=== PATIENT | female | born 1955 | race Caucasian/White ===

== ENCOUNTER 2023-08-08 10:51 | Outpatient (OUT) | payer MEDICARE, SELFPAY ==
[2023-08-08 11:24] LABS: Basophils Absolute Auto 0.1 10^3/uL (0.0-0.1); Basophils Percent Auto 1.4 % (0.2-2.0); Eosinophils Absolute Auto 0.2 10^3/uL (0.0-0.7); Eosinophils Percent Auto 2.3 % (0.9-7.0); Hematocrit 38.6 % (36.0-48.0); Hemoglobin 11.5 g/dL (12.0-16.0); Immature Granulocytes Abs Auto 0.02 10^3/uL (0.00-0.03); Immature Granulocytes Pct Auto 0.3 % (0.0-0.5); Lymphocytes Absolute Auto 1.3 10^3/uL (1.2-3.8); Lymphocytes Percent Auto 16.8 % (20.5-60.0); Mean Corpuscular HGB Conc 29.8 g/dL (29.9-35.2); Mean Corpuscular Hemoglobin 25.1 pg (26.7-34.0); Mean Corpuscular Volume 84.1 fL (81.0-99.0); Mean Platelet Volume 9.2 fL (9.5-13.5); Monocytes Absolute Auto 0.6 10^3/uL (0.3-0.8); Monocytes Percent Auto 7.5 % (1.7-12.0); Neutrophils Absolute Auto 5.8 10^3/uL (1.4-6.5); Neutrophils Percent Auto 71.7 % (43.0-75.0); Platelet Count 371 10^3/uL (150-450); Red Blood Count 4.59 10^6/uL (4.20-5.40); Red Cell Distribution Width 17.2 % (11.0-15.0)
[2023-08-08 12:18] LABS: Alanine Aminotransferase 20 U/L (14-59); Albumin Level 3.5 g/dL (3.4-5.0); Alkaline Phosphatase 112 U/L (46-116); Anion Gap 10.2; Aspartate Amino Transferase 11 U/L (15-37); BUN Creatinine Ratio 20.3; Bilirubin Total 0.3 mg/dL (0.2-1.0); Calcium 9.2 mg/dL (8.5-10.1); Carbon Dioxide 30.8 mmol/L (21.0-32.0); Chloride 103 mmol/L (98-107); Chol HDL Ratio 4.8; Cholesterol 201 mg/dL (<=200); Estimated GFR (African America >60 (>=60); Estimated GFR (Non-African Ame >60 (>=60); Globulin 3.5 g/dL; Glucose 86 mg/dL (74-106); HDL Cholesterol 42 mg/dL (40-60); Percent Iron Saturation 9.6 %; Sodium 140 mmol/L (136-145); Triglycerides 165 mg/dL (<=150)
[2023-08-08 12:19] LABS: Estimated Average Glucose 114 mg/dL; Glycohemoglobin A1C 5.6 % (4.5-6.2)
[2023-08-09 05:07] LABS: Transferrin 256 mg/dL (192-364)
== END 2023-08-08 10:52 | disposition home or self-care (01) ==
PROVIDERS: PCP Internal Medicine; Visit Provider Internal Medicine
DX: I10 Essential (primary) hypertension (principal); E11.9 Type 2 diabetes mellitus without complications; E78.5 Hyperlipidemia, unspecified; F32.A Depression, unspecified; E61.1 Iron deficiency; E55.9 Vitamin D deficiency, unspecified
CPT/HCPCS: 36415; 80053; 80061; 82306; 82728; 83036; 83540; 83550; 84466; 85025

== ENCOUNTER 2023-12-12 08:41 | Outpatient (OUT) | payer MEDICARE, SELFPAY ==
--- NOTE | 2023-12-12 09:00 | RT_ITS ---
[facility] Test Date: 2023-12-12 Pat Name: JULIAN MONTAÑO Department: Room: - Gender: Female Assistant Athletic Trainer: Zaina Albarado RRT : 1955 Requested By: [id number] Order Number: [id number] Reading MD: [place] Interpretive Statements Pulmonary function testing was completed according to ATS criteria. Findings were not considered accurate and reproducible, as the patient was not able to perform the maneuvers up to ATS standards. Both pre- and post-bronchodilator values utilized for spirometry. Spirometry (based on pre-bronchodilator values): -FEV1/FVC: Reduced @38% -FEV1: Severely reduced @ 38% -FVC: Mildly reduced @ 75% -There is a positive bronchodilator response in FEV1 and FVC. Lung volumes by plethysmography: -RV: Increased @ 247% -TLC: Increased @ 150% Diffusion capacity: -DLCO: Moderate reduction @ 55% when corrected for Hb 10.4g/dL Flow-volume loop: -Severe obstructive pattern Impressions: Spirometry suggests severe obstruction with a positive bronchodilator response. An elevated RV and TLC suggest air trapping and hyperinflation respectively. There is a moderately reduced diffusion capacity. Overall study is compatible with obstructive lung disease. Study suggests COPD with a bronchodilator response or asthma-COPD overlap - unable to determine further as patient was unable to jonah ATS standards. Clinical correlation required. Electronically Signed On 12-21-2023 8:02:14 EST by Tru [place]
[2023-12-12 09:08] LABS: Hemoglobin 10.4 g/dL (12.0-16.0)
[2023-12-12] MEDS: ALBUTEROL SULFATE 2.5 MG/3 ML VIAL NEB IH (10:12)
== END 2023-12-12 08:42 | disposition home or self-care (01) ==
PROVIDERS: PCP Internal Medicine; Visit Provider Internal Medicine
DX: F17.210 Nicotine dependence, cigarettes, uncomplicated (principal); J45.40 Moderate persistent asthma, uncomplicated
CPT/HCPCS: 36415; 85018; 94060; 94726; 94729

== ENCOUNTER 2024-01-11 09:11 | Outpatient (OUT) | payer MEDICARE, SELFPAY ==
--- OUTSIDE RECORDS SUMMARY | 2024-01-11 09:25 | XMS_ITS | CCD ---
Author Name Unknown Address [address] [place] [address] Organization [facility] Care Team Providers Care President & [employer] Name Role Phone CHALO, DR GIANNA PACHECO Admitting Unavaila ble AMBURN, DR GIANNA PACHECO Primary Care Unavaila ble HOUSE, DR MCCULLOUGH Consulting Unavailable AMBURN, DR GIANNA PACHECO Attending Unavaila ble AMBURN, DR GIANNA PACHECO Primary Care Unavaila ble MISC, DR VALDES Consulting Unavailable MISC, DR VALDES Attending Unavailable MISC, DR VALDES Admitting Unavailable ZIEBER, DR PATRICK Mir Consulting Unavailable AMBURN, DR GIANNA PACHECO Primary Care Unavaila ble ABBAS, DR SEBASTIAN Attending Unavailable ABBAS, DR SEBASTIAN Admitting Unavailable ABBAS, DR SEBASTIAN Consulting Unavailable ZIEBER, DR PATRICK Mir Consulting Unavailable SHAIKH MONAHAN Primary Care Physician [phone] SHAIKH MONAHAN Attending Unavailable Windnagel, Zamzam Admitting Unavailable Windnagel, Zamzam Referring Unavailable Windnagel, Zamzam Attending Unavailable Windnagel, Zamzam Referring Unavailable Windnagel, Zamzam Attending Unavailable Windnagel, Zamzam Admitting Unavailable Problems Problem Classification Problem Date Documented Da te Episodic/Chronic Aortic; peripheral; and visceral artery aneurysms (4 sources) Aneurysm of other specified arteries; Translations: [ANEURYSM OTHER SPECIFIED ARTERIES] Onset: 04-08-2022 Chronic Chronic obstructive pulmonary disease and bronchiectasis (1 source) Chronic obstructive pulmonary disease, unspecified; Translations: [COPD UNSPECIFIED] Onset: 01-09-2023 Chronic Deficiency and other anemia (1 source) Anemia, unspecified; Translations: [ANEMIA UNSPECIFIED] Onset: 01-09-2023 Episodic Diabetes mellitus without complication (4 sources) Type 2 diabetes mellitus without complications; Translations: [TYPE 2 DM WITHOUT COMPLICATIONS] Onset: 01-05-2023 Chronic Other and unspecified benign neoplasm (4 sources) Benign neoplasm of cranial nerves; Translations: [BENIGN NEOPLASM OF CRANIAL NERVES] Onset: 04-26-2022 Chronic Other nervous system disorders (1 source) Ataxia, unspecified; Translations: [ATAXIA UNSPECIFIED] Onset: 01-09-2023 Episodic Other nutritional; endocrine; and metabolic disorders (1 source) Abnormal weight loss; Translations: [ABNORMAL WEIGHT LOSS] Onset: 01-09-2023 Episodic Results Test Name Value Interpretation Reference Range Facility Neurology Forms- [facility] Forms- Text [id number] #1.00TIFF Normal [facility] Consent for Treatmenton Consent for Treatment [id number] .00TIFF Normal [facility] Physician Orderon 12-05-2023 Physician Order [id number]#1 .00TIFF Normal [facility] MRI Brain w/ + w/o Contrasto n 12-02-2023 MRI Brain w/ + w/o Contrast Exam Date/Time: 11/30/2023 17:25 EST Reason for Exam: [id number] Report IMPRESSION: No acute intracranial process or suspicious enhancement. Nonspecific right mastoid effusion. EXAMINATION: MRI Brain w/ + w/o Contrast HISTORY: Loss of balance. TECHNIQUE: Routine brain MRI protocol without and with contrast including diffusion images. Including dedicated images according to IAC protocol. CONTRAST: 6 mL gadolinium (Vueway) COMPARISON: None. RESULT: Acute Change: There is no evidence of restricted diffusion to suggest an acute infarct. Hemorrhage: No evidence of prior parenchymal hemorrhage. Mass Lesion/ Mass Effect: No evidence of an intracranial mass or extra-axial fluid collection. There is no evidence of a mass in the region of either IAC or elsewhere in the posterior fossa. Postsurgical changes on the right from apparent mastoidectomy, correlate with prior surgical history. No abnormal enhancement is noted in the basilar cisterns, along the course of the 7/8 cranial nerve complexes, or in the region of the inner ear complexes. No abnormal parenchymal or leptomeningeal enhancement following gadolinium administration. Inner ear structures appear to be within normal limits on the high resolution 3D sequence. No significant mass effect. Chronic Change: Scattered patchy areas of increased T2 and FLAIR signal are present in the supratentorial white matter which is a nonspecific finding but likely represents mild chronic microvascular ischemia. Parenchyma: There is mild generalized parenchymal volume loss. Ventricles: Normal caliber and morphology. Skull Base: Hypothalamic and pituitary region are grossly normal. Craniocervical junction is normal. No significant marrow replacement process. Report Vasculature: Major intracranial arterial structures, and dural venous sinuses show typical flow void, suggesting patency. Other: Mild thickening in the paranasal sinuses. Fluid within the right mastoid air cells. The orbits are unremarkable. The extracranial soft tissues are unremarkable. Ordering Provider: Zamzam Wheeler FINAL REPORT Dictated: 12/02/2023 12:36 pm Lincoln Prater MD Signed (Electronic Signature): 12/02/2023 12:36 pm Signed by: Lincoln Prater MD Transcribed by: SANA Technologist: CORDELIA Technical Comments Vueway Contrast amount in ml's: 6 Normal [facility] MRI Spine Cervical w/o Contr bonnie 12-02-2023 MRI Spine Cervical w/o Contrast Exam Date/Time: 11/30/2023 17:25 EST Reason for Exam: G95.9 [id number] Report IMPRESSION: Degenerative changes cervical spine as discussed. EXAMINATION: MRI Spine Cervical w/o Contrast HISTORY: Loss of balance. No sensation in the legs and feet for 2 months. TECHNIQUE: Routine cervical spine MR protocol without gadolinium. COMPARISON: None. RESULT: Some limitations from motion. CERVICAL: Counting reference: Craniocervical junction. Anatomic Variants: None. Alignment: Exaggerated cervical lordosis. Craniocervical junction: Craniocervical junction is unremarkable. Cord: The cervical spinal cord is grossly within normal limits of signal intensity and morphology, within limits of motion. Bone marrow signal/fracture: No evidence for acute or chronic fracture. No destructive osseous process. Cervical soft tissues: The paraspinal soft tissues are unremarkable. C2-C3: Disc bulge without significant canal or foraminal narrowing. C3-C4: Disc bulge without significant canal or foraminal narrowing. C4-C5: Disc bulge. Endplate osteophytes. Facet/uncovertebral degenerative changes. Moderate canal narrowing with moderate bilateral foraminal narrowing. C5-C6: Disc bulge. Endplate osteophytes. Facet/uncovertebral degenerative changes. Moderate canal narrowing with mild to moderate bilateral foraminal narrowing. C6-C7: Disc bulge. Facet/uncovertebral degenerative changes. Mild bilateral foraminal narrowing without significant canal narrowing. Report C7-T1: Facet degenerative changes without significant canal or foraminal narrowing within limits of motion. Upper thoracic spine: Visualized upper thoracic canal and foramina without significant narrowing. Ordering Provider: Zamzam Wheeler FINAL REPORT Dictated: 12/02/2023 12:40 pm Lincoln Prater MD Signed (Electronic Signature): 12/02/2023 12:40 pm Signed by: Lincoln Prater MD Transcribed by: SANA Technologist: CORDELIA Technical Comments None Normal [facility] BUNon 11-30-2023 Urea nitrogen [Mass/Vol] 17 mg/dL Normal 5-21 [facility] Comment on above: Performed By: #### 1 [id number] #### [facility] Laboratory [address] [place] [address] Consent for Treatmenton 11-14 Consent for Treatment [id number] .00TIFF Normal [facility] Creatinineon 11-30-2023 Creatinine [Mass/Vol] 0.8 mg/dL Normal 0.5-1.3 [facility] Comment on above: Performed By: #### 1 [id number], [id number] #### [facility] [address] [place] [address] RAD - MRI Screening Formon 0 11-30-2023 RAD - MRI Screening Form [id number] .00TIFF Normal [facility] eGFRon 11-30-2023 eGFR 79 mL/min/1.73 m2 Normal >=59 [facility] Comment on above: Order Comment: Order added by Discern Expert. Performed By: #### 1 [id number], [id number], [id number] #### [facility] [address] [place] [address] Physician Orderon 10-28-2023 Physician Order [id number] .00TIFF Normal [facility] CBC AUTO DIFFon 01-05-2023 BASO # 0.1 103/ul Normal 0.0-0.1 [facility] Comment on above: Performed By: #### C BC #### [facility] [address] [address] [address] Stan Aceves Basophils/100 WBC (Bld) 0.7 % Normal 0.2-2.0 [facility] Comment on above: Performed By: #### C BC #### [facility] [address] [place] [address] Dr. Stan Aceves EO # 0.1 103/ul Normal 0.0-0.7 [facility] Comment on above: Performed By: #### C BC #### [facility] [address] [address] [address] Stan Aceves Eosinophils/100 WBC (Bld) 1.0 % Normal 0.9-7.0 [facility] Comment on above: Performed By: #### C BC #### [facility] [address] [place] [address] Dr. Stan Aceves Erythrocyte distribution width (RBC) [Ratio] 16.8 % Critically high 11.0-15.0 [facility] Comment on above: Performed By: #### C BC #### [facility] [address] [place] [address] Dr. Stan Aceves Hematocrit (Bld) [Volume fraction] 33.7 % Critically low 36.0-48.0 [facility] Comment on above: Performed By: #### C BC #### [facility] [address] [place] [address] Dr. Stan Aceves Hemoglobin (Bld) [Mass/Vol] 10.6 g/dL Critically low 12.0-16.0 [facility] Comment on above: Performed By: #### C BC #### [facility] [address] [address] [address] Stan Aceves IG # 0.03 10e3/ul Normal 0.00-0.03 [facility] Comment on above: Performed By: #### C BC #### [facility] [address] [place] [address] Dr. Stan Aceves IG % 0.3 % Normal 0.0-0.5 [facility] Comment on above: Performed By: #### C BC #### [facility] [address] [place] [address] Dr. Stan Aceves LYMPH # 0.9 103/ul Critically low 1.2-3.8 [facility] Comment on above: Performed By: #### C BC #### [facility] [address] [place] [address] Dr. Stan Aceves Lymphocytes/100 WBC (Bld) 9.9 % Critically low 20.5-60.0 [facility] Comment on above: Performed By: #### C BC #### [facility] [address] [place] [address] Dr. Stan Aceves MANUAL DIFF REQ NO Normal [facility] Comment on above: Performed By: #### C BC #### [facility] [address] [place] [address] Dr. Stan Aceves MCH (RBC) [Entitic mass] 25.7 pg Critically low 26.7-34.0 [facility] Comment on above: Performed By: #### C BC #### [facility] [address] [place] [address] Dr. Stan Aceves MCHC (RBC) [Mass/Vol] 31.5 g/dL Normal 29.9-35.2 [facility] Comment on above: Performed By: #### C BC #### [facility] [address] [place] [address] Dr. Stan Aceves MCV (RBC) [Entitic vol] 81.6 fL Normal 81.0-99.0 [facility] Comment on above: Performed By: #### C BC #### [facility] [address] [place], [place] [id number] Dr. Stan Aceves MONO # 0.7 103/ul Normal 0.3-0.8 [facility] Comment on above: Performed By: #### C BC #### [facility] [address] [place] [address] Dr. Stan Aceves Monocytes/100 WBC (Bld) 7.3 % Normal 1.7-12.0 [facility] Comment on above: Performed By: #### C BC #### [facility] [address] [place] [address] Dr. Stan Aceves NEUT # 7.4 103/ul Critically high 1.4-6.5 [facility] Comment on above: Performed By: #### C BC #### [facility] [address] [place] [address] Dr. Stan Aceves Neutrophils/100 WBC (Bld) 80.8 % Critically high 43.0-75.0 [facility] Comment on above: Performed By: #### C BC #### [facility] [address] [place] [address] Dr. Stan Aceves Platelet mean volume (Bld) [Entitic vol] 8.2 fL Critically low 9.5-13.5 [facility] Comment on above: Performed By: #### C BC #### [facility] [address] [place] [address] Dr. Stan Aceves PLT 396 103/ul Normal 150-450 [facility] Comment on above: Performed By: #### C BC #### [facility] [address] [place] [address] Dr. Stan Aceves RBC 4.13 106/ul Critically low 4.20-5.40 [facility] Comment on above: Performed By: #### C BC #### [facility] [address] [place] [address] Dr. Stan Aceves WBC 9.2 103/ul Normal 4.0-11.0 [facility] Comment on above: Performed By: #### C BC #### [facility] [address] [place] [address] Dr. Stan Aceves GLYCOHEMOGLOBIN A1Con 2022 ADA RECOMMENDATION SEE BELOW Normal [facility] Comment on above: Result Comment: ADA RECOMMENDED LIMIT 4.0 - 6.0 ADA THERAPEUTIC TARGET < 7.0 ACTION SUGGESTED > 7.0 Performed By: #### A 1C #### [facility] [address] [place] [address] Dr. Stan Aceves Glucose [Mass/Vol] 126 mg/dL Normal [facility] Comment on above: Performed By: #### A 1C #### [facility] [address] [place] [address] Dr. Stan Aceves HbA1c (Bld) [Mass fraction] 6.0 % Normal 4.5-6.2 [facility] Comment on above: Performed By: #### A 1C #### [facility] [address] [place] [address] Dr. Stan Aceves IRONon 01-05-2023 Iron [Mass/Vol] 36.0 ug/dL Critically low 50.0-170.0 [facility] Comment on above: Performed By: #### I KAM #### [facility] [address] [place] [address] Dr. Stan Aceves MICROALBUMIN, RAND URon 12-16 mALB <1.3 Normal <=30.0 [facility] Comment on above: Performed By: #### M ALBR #### [facility] [address] [place] [address] Dr. Stan Aceves PROF 14(COMP METB)on 023 Albumin [Mass/Vol] 3.5 g/dL Normal 3.4-5.0 [facility] Comment on above: Performed By: #### T 4, CMP, TSH #### [facility] [address] [place] [address] Dr. Stan Aceves Albumin/Globulin [Mass ratio] 1.0 {ratio} Normal [facility] Comment on above: Performed By: #### T 4, CMP, TSH #### [facility] [address] [place] [address] Dr. Stan Aceves ALP [Catalytic activity/Vol] 105 U/L Normal 46-116 [facility] Comment on above: Performed By: #### T 4, CMP, TSH #### [facility] [address] [address] [address] Stan Aceves ALT [Catalytic activity/Vol] 20 U/L Normal 14-59 [facility] Comment on above: Performed By: #### T 4, CMP, TSH #### [facility] [address] [address] [address] Stan Aceves Anion gap [Moles/Vol] 12.1 mmol/L Normal [facility] Comment on above: Performed By: #### T 4, CMP, TSH #### [facility] [address] [place] [address] Dr. Stan Aceves AST [Catalytic activity/Vol] 14 U/L Critically low 15-37 [facility] Comment on above: Performed By: #### T 4, CMP, TSH #### [facility] [address] [place] [address] Dr. Stan Aceves Bilirubin [Mass/Vol] 0.3 mg/dL Normal 0.2-1.0 [facility] Comment on above: Performed By: #### T 4, CMP, TSH #### [facility] [address] [place] [address] Dr. Stan Aceves Calcium [Mass/Vol] 9.1 mg/dL Normal 8.5-10.1 [facility] Comment on above: Performed By: #### T 4, CMP, TSH #### [facility] [address] [place] [address] Dr. Stan Aceves Chloride [Moles/Vol] 103 mmol/L Normal 98-107 [facility] Comment on above: Performed By: #### T 4, CMP, TSH #### [facility] [address] [place] [address] Dr. Stan Aceves CO2 [Moles/Vol] 26.8 mmol/L Normal 21.0-32.0 [facility] Comment on above: Performed By: #### T 4, CMP, TSH #### [facility] [address] [place] [address] Dr. Stan Aceves Creatinine [Mass/Vol] 0.84 mg/dL Normal 0.55-1.02 [facility] Comment on above: Performed By: #### T 4, CMP, TSH #### [facility] [address] [place] [address] Dr. Stan Aceves EGFR-AF GRENADIAN >60 Normal >=60 [facility] Comment on above: Performed By: #### T 4, CMP, TSH #### [facility] [address] [address] [address] Stan Aceves EGFR-NON AF GRENADIAN >60 Normal >=60 [facility] Comment on above: Performed By: #### T 4, CMP, TSH #### [facility] [address] [place] [address] Dr. Stan Aceves Globulin (S) [Mass/Vol] 3.6 g/dL Normal [facility] Comment on above: Performed By: #### T 4, CMP, TSH #### [facility] [address] [place] [address] Dr. Stan Aceves Glucose [Mass/Vol] 84 mg/dL Normal 74-106 [facility] Comment on above: Performed By: #### T 4, CMP, TSH #### [facility] [address] [place] [address] Dr. Stan Aceves Potassium [Moles/Vol] 3.9 mmol/L Normal 3.5-5.1 [facility] Comment on above: Performed By: #### T 4, CMP, TSH #### [facility] [address] [place] [address] Dr. Stan Aceves Protein [Mass/Vol] 7.1 g/dL Normal 6.4-8.2 [facility] Comment on above: Performed By: #### T 4, CMP, TSH #### [facility] [address] [place] [address] Dr. Stan Aceves Sodium [Moles/Vol] 138 mmol/L Normal 136-145 [facility] Comment on above: Performed By: #### T 4, CMP, TSH #### [facility] [address] [place] [address] Dr. Stan Aceves Urea nitrogen [Mass/Vol] 12.0 mg/dL Normal 7.0-18.0 [facility] Comment on above: Performed By: #### T 4, CMP, TSH #### [facility] [address] [address] [address] Stan Aceves Urea nitrogen/Creatinine [Mass ratio] 14.3 mg/mg Normal [facility] Comment on above: Performed By: #### T 4, CMP, TSH #### [facility] [address] [address] [address] Stan Aceves T4on 01-05-2023 T4 [Mass/Vol] 8.70 ug/dL Normal 4.80-13.90 [facility] Comment on above: Performed By: #### T 4, CMP, TSH #### [facility] [address] [place] [address] Dr. Stan Aceves TSHon 01-05-2023 TSH 2.209 uIU/mL Normal 0.358-3.740 [facility] Comment on above: Performed By: #### T 4, CMP, TSH #### [facility] [address] [place] [address] Dr. Stan Aceves MRI BRAIN WO W CONon 022 MRI BRAIN WO W CON EXAMINATION: MRI BRAIN WO W CON HISTORY: Benign neoplasm of cranial nerve ; follow-up right acoustic neuroma COMPARISON: No relevant comparison available. TECHNIQUE: A variety of imaging planes and parameters were utilized for visualization of suspected pathology. Images were performed without and with ml Dotarem contrast. FINDINGS: CEREBRUM: Stable appearance of several small areas of increased T2 signal within the periventricular and subcortical deep white matter. Mild atrophy. No edema, hemorrhage, mass, acute infarction, or inappropriate atrophy. CEREBELLUM: No edema, hemorrhage, mass, acute infarction, or inappropriate atrophy. BRAINSTEM: No edema, hemorrhage, mass, acute infarction, or inappropriate atrophy. CSF SPACES: Ventricles, cisterns, and sulci are appropriate for age. No hydrocephalus, subarachnoid hemorrhage, or mass. SKULL: No mass or other significant visible lesion. SINUSES: Fluid-filled right mastoid air cells, unchanged. Trace amount of paranasal chronic sinusitis. ORBITS: Limited views are unremarkable. OTHER: Stable small enhancing mass within the right internal auditory canal extending into the cerebellar pontine angle, approximately 15 x 6 x 5 mm. IMPRESSION: 1. Stable small enhancing mass within the right internal auditory canal consistent with an acoustic neuroma. 2. Stable right mastoiditis. 3. Stable areas of increased T2 signal within the deep white matter favoring chronic small vessel ischemic changes. Electronically authenticated by: PATRICK PIERRE Date: 2022-04-27 10:16 Normal [facility] CREATININEon 04-08-2022 Creatinine [Mass/Vol] 0.91 mg/dL Normal 0.55-1.02 [facility] Comment on above: Performed By: #### C ONIEL #### [facility] [address] [place] [address] Dr. Stan Aceves EGFR-AF GRENADIAN >60 Normal >=60 [facility] Comment on above: Performed By: #### C ONIEL #### [facility] [address] [address] [address] Stan Aceves EGFR-NON AF GRENADIAN >60 Normal >=60 [facility] Comment on above: Performed By: #### C ONIEL #### [facility] [address] [place] [address] Dr. Stan Aceves CTA ABD/PELVIS WO W CONon CTA ABD/PELVIS WO W CON EXAMINATION: CTA ABD/PELVIS WO W CON HISTORY: Aneurysm of splenic artery COMPARISON: CTA abdomen pelvis 01/26/2021 TECHNIQUE: Axial, Coronal, and Sagittal CT images without and with IV contrast. Multi-planar/3-D imaging to optimize visualization of vascular anatomy. Dose reduction techniques were achieved by using automated exposure control and/or adjustment of mA and/or kV according to patient size and/or use of iterative reconstruction technique. FINDINGS: AORTA/VASCULAR: No aneurysm or dissection. Moderate atherosclerotic disease of the distal aorta. CELIAC ARTERY: Marked narrowing at its origin. SPLENIC ARTERY: 2 adjacent rim calcified aneurysms versus bilobed aneurysm; overall combined measurements 23 x 12 x 12 mm. SMA: Normal mesenteric vessels. RENAL ARTERIES: Normal renal vessels. LUNG BASES: No visible pulmonary or pleural disease. LIVER: No enlargement, atrophy, abnormal density, or significant focal lesion. BILIARY: No visible dilatation or calcification. PANCREAS: No lesion, fluid collection, ductal dilatation, or atrophy. SPLEEN: No enlargement or focal lesion. ADRENALS: Mild adreniform hypertrophy bilaterally, stable. KIDNEYS: No mass, obstruction, or calcification. BOWEL/MESENTERY: No visible mass, obstruction, or bowel wall thickening. RETROPERITONEUM: No mass or adenopathy. LYMPH NODES: No adenopathy. URINARY BLADDER: No visible focal wall thickening, lesion, or calculus. PELVIC ORGANS: Hysterectomy. ABDOMINAL WALL: No mass or hernia. BONES: No bony lesion or fracture. Multilevel moderate-marked degenerative disc disease of lumbar spine. OTHER: Negative. IMPRESSION: 1. Stable rim calcified splenic artery aneurysm(s). 2. 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 3. Stable adreniform hypertrophy of adrenal glands. 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 In the last year visit she had small residual disease in the cerebellopontine angle of about 5 mm x 10 mm. She is here for follow-up. 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.3) Sensorineural hearing loss of both ears (389.18) (H90.3) Past Medical History History of diabetes mellitus (V12.29) (Z86.39) Surgical History History of Hysterotomy (Obstetrical) Family History Family history of Cancer Family history of Coronary Artery Disease (V17.49) Family history of Diabetes Mellitus (V18.0) Social History Tobacco Non-user Allergies No Known Drug Allergies Recorded By: Rachel Contreras; 10/10/2013 3:23:22 PM Current Meds Alendronate Sodium 70 MG Oral Tablet; TAKE 1 TABLET BY MOUTH EVERY week --take 30 MINUTES before BREAKFAST;Therapy: [id number] to Recorded Rx By: Zion; Dispense: 84 Days ; #:12; Refill: 0; ARIEL = N; Record; Last Updated By: Domenica Topete; 10/11/2017 1:16:16 PM Aller-Ease 180 MG Oral Tablet;Therapy: 16Sep2015 to Recorded Dispense: 0 Days ; #: Sufficient Tablet; Refill: 0; ARIEL = N; Record; Last Updated By: Beverley Covarrubias; 09/16/2015 1:32:00 PM Ammonium Lactate 12 % External Cream; APPLY TO THE AFFECTED AREA(S)topically TWICE DAILY;Therapy: 03Mar2017 to Recorded Rx By: Zion; Dispense: 30 Days ; #:140; Refill: 0; AREIL = N; Record; Last Updated By: Domenica Topete; 10/11/2017 1:16:16 PM Atorvastatin Calcium 40 MG Oral Tablet; TAKE 1 TABLET BY MOUTH DAILY ATBEDTIME;Therapy: 06Jan2017 to Recorded Rx By: Zion; Dispense: 30 Days ; #:30; Refill: 0; ARIEL = N; Record; Last Updated By: Domenica Topete; 10/11/2017 1:16:16 PM Famotidine 20 MG Oral Tablet; TAKE 1 TABLET AT BEDTIME and TAKE 1 TABLET ASNEEDED during the day;Therapy: [id number] to Recorded Rx By: Zion; Dispense: 30 Days ; #:60; Refill: 0; ARIEL = N; Record; Last Updated By: Domenica Topete; 10/11/2017 1:16:16 PM Fluticasone Propionate 50 MCG/ACT Nasal Suspension; INHALE 1 (ONE) SPRAY INEACH NOSTRIL EVERY DAY;Therapy: 17Nov2016 to Recorded Rx By: Chalo; Dispense: 30 Days ; #:16; Refill: 0; ARIEL = N; Record; Last Updated By: Domenica Topete; 10/11/2017 1:16:16 PM Lisinopril 20 MG Oral Tablet;Therapy: [id number] to Recorded Rx By: GIANNA ISABEL; Dispense: 30 Days ; #:30; Refill: 0; ARIEL = N; Record; Last Updated By: Beverley Covarrubias; 09/16/2015 1:29:38 PM Meloxicam 7.5 MG Oral Tablet;Therapy: 15Jun2014 to Recorded Rx By: GIANNA ISABEL; Dispense: 30 Days ; #:30; Refill: 0; ARIEL = N; Record; Last Updated By: Mc Winter; 08/20/2014 1:02:13 PM MetFORMIN HCl - 500 MG Oral Tablet;Therapy: 19Nov2014 to Recorded Rx By: GIANNA ISABEL; Dispense: 30 Days ; #:15; Refill: 0; ARIEL = N; Record; Last Updated By: Beverley Covarrubias; 09/16/2015 1:29:38 PM Omeprazole 20 MG Oral Capsule Delayed Release; TAKE 1 CAPSULE IN THEMORNING at least ONE-HALF hour before breakfast,;Therapy: 02Oct2016 to Recorded Rx By: Zion; Dispense: 30 Days ; #:30; Refill: 0; ARIEL = N; Record; Last Updated By: Domenica Topete; 10/11/2017 1:16:16 PM Os-Christian Calcium + D3 500-200 MG-UNIT Oral Tablet; TAKE 1 TABLET BY MOUTHEVERY DAY;Therapy: 03May2017 to Recorded Rx By: Chalo; Dispense: 30 Days ; #:30; Refill: 0; ARIEL = N; Record; Last Updated By: Domenica Topete; 10/11/2017 1:16:16 PM Oyster Shell Calcium/D 500-200 MG-UNIT Oral Tablet; TAKE 1 TABLET BY MOUTHTWICE DAILY;Therapy: 06Jan2017 to Recorded Rx By: Zion; Dispense: 30 Days ; #:60; Refill: 0; ARIEL = N; Record; Last Updated By: Domenica Topete; 10/11/2017 1:16:16 PM Pharmacist Choice Lancets;Therapy: 21Sep2013 to Recorded Dispense: 30 Days ; #:100; Refill: 0; ARIEL = N; Record; Last Updated By: Rachel Contreras; 10/10/2013 3:23:22 PM Polyethylene Glycol 3350 Oral Packet;Therapy: 16Sep2015 to Recorded Dispense: 0 Days ; #: Sufficient Packet; Refill: 0; ARIEL = N; Record; Last Updated By: Beverley Covarrubias; 09/16/2015 1:32:00 PM RaNITidine HCl - 150 MG Oral Tablet; TAKE 1 TABLET BY MOUTH TWICE DAILY, TAKE1 TABLET BY MOUTH AT BEDTIME;Therapy: 31Jan2017 to Recorded Rx By: Zion; Dispense: 30 Days ; #:60; Refill: 0; ARIEL = N; Record; Last Updated By: Domenica Topete; 10/11/2017 1:16:16 PM Simvastatin 20 MG Oral Tablet;Therapy: 15Jun2014 to Recorded Rx By: GIANNA ISABEL; Dispense: 30 Days ; #:30; Refill: 0; ARIEL = N; Record; Last Updated By: Mc Winter; 08/20/2014 1:02:13 PM True Metrix Meter w/Device Kit; use to test BLOOD SUGAR DAILY;Therapy: 17Dec2016 to Recorded Rx By: Chalo; Dispense: 1 Days ; #:1; Refill: 0; ARIEL = N; Record; Last Updated By: Domenica Topete; 10/11/2017 1:16:16 PM Ulti-Michael Automatic;Therapy: 06Aug2013 to Recorded Dispense: 30 Days ; #:1; Refill: 0; ARIEL = N; Record; Last Updated By: Rachel Contreras; 10/10/2013 3:23:22 PM Diagnoses/Problems Acoustic neuroma (225.1) (D33.3) Orders MRI IAC w/wo Contrast; Status:Hold For - Scheduling,Retrospect desmond By ProtocolAuthorization ; Requested for:15Sep2020; Perform:[facility]; Due:[id number]; Last Updated By:Carole Lanier; 09/26/2018 3:48:32 PM;Ordered; For:Acoustic neuroma; Ordered By:Shane Wilkerson;Radiologist to Determine Optimal Study : YWhat are the patient's signs and symptoms? : s/p CPA lesion resection Signatures Electronically signed by : Shane Wilkerson MD; Sep 26 2018 4:29PM EST (Author) Normal [facility] Encounters Encounter Date Encounter Type Care Provider Facility Start: 12-15-2023 End: 12-16-2023 ambulatory Zamzam [place] [place]: 12-15-2023 End: 12-15-2023 Patient encounter procedure Zamzam Wheeler [facility] Start: 11-30-2023 End: 12-01-2023 ambulatory Zamzam Wheeler [place] Start: 11-21-2023 End: 11-22-2023 ambulatory SHAIKH HERO Not Available Start: 10-28-2023 End: 11-10-2023 Pre-admission assessment Zamzam Wheeler [facility] Start: 01-05-2023 End: 01-06-[address] GIANNA ISABEL Facility:[facility] Start: 04-26-2022 End: 04-27-[address] GIANNA ISABEL Facility:[facility] Start: 04-08-2022 End: 04-09-[address] GIANNA ISABEL Facility: Payers Date Payer Category Payer Unknown [id number] 1955 Unknown [id number] 2.16.84 [id number] 1955 Unknown [id number] 2.16.84 [id number] 1955 Unknown [id number] 2.16.84 [id number] 1955 Unknown [id number] 2.16.84 [id number] 1955 Unknown [id number] 2.16.8 [id number] 1955 Unknown [id number] 2.16.8 [id number] Social History Date Type Detail Facility Tobacco smoking status No Smoking Status Entered [facility] Sex Assigned At Female [facility] Evaluation + Plan note Note Date & Type Note Facility Evaluation + Plan note No data available for this section [facility] Hospital Discharge instructions Note Date & Type Note Facility Hospital Discharge instructions No data available for this section [facility] Progress note Note Date & Type Note Facility Progress note No data available for this section [facility] Summary Purpose Family History No Family History Records FoundNo Family History Records Found No data available for this section No Family History Records Found No data available for this section No Family History Records Found Advance Directives No Advanced Directives Records FoundNo Advanced Directives Records FoundNo Advanced Directives Records FoundNo Advanced Directives Records Found Additional Source Comments INFORMATION SOURCE (unrecogn ized section and content) DATE CREATED AUTHOR 10/22/2018 [employer] DATE CREATED AUTHOR AUTHOR'S ORGANIZ ATION 01/09/2023 [facility] DATE CREATED AUTHOR AUTHOR'S ORGANIZ ATION 11/26/2023 [facility] EPIC DATE CREATED AUTHOR AUTHOR'S ORGANIZ ATION 12/17/2023 [facility] Patient Care team informatio n (unrecognized section and content) Personnel Name: SHAIKH MONAHAN MD Address: Address: [facility] [place] Terry [address] Personnel Name: SHAIKH MONAHAN MD Address: Address: [facility] [place] [address] FOR RECORDS PERTAINING TO PATIENTS WHO ARE OR HAVE BEEN ENROLLED IN A CHEMICAL DEPENDENCY/SUBSTANCEABUSE PROGRAM, SOME INFORMATION MAY BE OMITTED. This clinical summary was aggregated from multiple sources. Caution should be exercised in using it in the provision of clinical care. This summary normalizes information from multiple sources, and as a consequence, information in this document may materially change the coding, format and clinical context of patient data. In addition, data may be omitted in some cases. CLINICAL DECISIONS SHOULD BE BASED ON THE PRIMARY CLINICAL RECORDS. [facility] [employer] [facility]. provides no warranty or guarantee of the accuracy or completeness of information in this document.
[2024-01-11 09:50] LABS: Creatinine Urine Random <13.00 mg/dL (20.00-300.00); Microalbumin Urine Random <1.3 mg/dL (<=30.0)
[2024-01-11 11:06] LABS: Percent Iron Saturation 7.7 %
[2024-01-12 08:12] LABS: Transferrin 294 mg/dL (192-364)
== END 2024-01-11 09:12 | disposition home or self-care (01) ==
LOC: LAB 09:12
PROVIDERS: PCP Internal Medicine; Visit Provider Internal Medicine
DX: D50.0 Iron deficiency anemia secondary to blood loss (chronic) (principal); E11.9 Type 2 diabetes mellitus without complications
CPT/HCPCS: 36415; 82043; 82570; 82728; 83540; 83550; 84466

== ENCOUNTER 2024-01-16 08:16 | Outpatient (OUT) | payer MEDICARE, SELFPAY ==
--- OUTSIDE RECORDS SUMMARY | 2024-01-16 08:21 | XMS_ITS | CCD ---
Author Name Unknown Address [address] [place] [address] Organization [facility] Care Team Providers Care Retail Office Manager Name Role Phone CHALO, DR GIANNA PACHECO [...] DR SEBASTIAN Consulting Unavailable ZIEBER, DR PATRICK iMr Consulting Unavailable SHAIKH MONAHAN Primary Care Physician SHAIKH MONAHAN Attending Unavailable Windnagel, Zamzam Admitting [...] Facility Neurology Forms- [facility] Neu[facility] Forms- Text [id number] #1.00TIFF Normal [facility] Consent for Treatmenton Consent for Treatment [id number]#1 .00TIFF Normal [facility] Physician Orderon 12-05-2023 Physician Order [id number]#1 .00TIFF Normal [facility] MRI Brain w/ + w/o Contrasto n [...] Contrast amount in ml's: 6 Normal [facility] MRI Spine Cervical w/o Contr bonnie [...] SANA Technologist: CORDELIA Technical Comments None Normal [facility] BUNon 11-30-2023 Urea nitrogen [Mass/Vol] 17 mg/dL Normal 5-21 [facility] Comment on above: Performed By: #### 1 [id number], [id number], [id number] #### [facility] [address] [place] [address] Consent for Treatmenton 11-14 Consent for Treatment [id number]#1 .00TIFF Normal [facility] Creatinineon 11-30-2023 Creatinine [Mass/Vol] 0.8 mg/dL Normal 0.5-1.3 [facility] Comment on above: Performed By: #### 1 [id number], [id number], [id number] #### [facility] [address] [place] [address] RAD - MRI Screening Formon 0 11-30-2023 RAD - MRI Screening Form [id number]#1 .00TIFF Normal [facility] eGFRon 11-30-2023 eGFR 79 mL/min/1.73 m2 Normal >=59 [facility] Comment on above: Order Comment: Order added by Discern Expert. Performed By: #### 1 [id number], [id number], [id number] #### [facility] [address] [place] [address] Physician Orderon 10-28-2023 Physician Order [id number]#1 .00TIFF Normal [facility] CBC AUTO DIFFon 01-05-2023 BASO # 0.1 103/ul Normal 0.0-0.1 [facility] Comment on above: Performed By: #### C BC #### [facility] [address] [address] [address] Stan Aceves Basophils/100 WBC (Bld) 0.7 % Normal 0.2-2.0 [facility] Comment on above: Performed By: #### C BC #### [facility] [address] [place] [address] Dr. Stan Aceves EO # 0.1 103/ul Normal 0.0-0.7 [facility] Comment on above: Performed By: #### C BC #### [facility] [address] [address] [address] Stan Aceves Eosinophils/100 WBC (Bld) 1.0 % Normal 0.9-7.0 [facility] Comment on above: Performed By: #### C BC #### [facility] [address] [place] [address] Dr. Stan Aceves Erythrocyte distribution width (RBC) [Ratio] 16.8 % Critically high 11.0-15.0 [facility] Comment on above: Performed By: #### C BC #### [facility] [address] [place] [address] Dr. Stan Aceves Hematocrit (Bld) [Volume fraction] 33.7 % Critically low 36.0-48.0 [facility] Comment on above: Performed By: #### C BC #### [facility] [address] [place] [address] Dr. Stan Aceves Hemoglobin (Bld) [Mass/Vol] 10.6 g/dL Critically low 12.0-16.0 [facility] Comment on above: Performed By: #### C BC #### [facility] [address] [address] [address] Stan Aceves IG # 0.03 10e3/ul Normal 0.00-0.03 [facility] Comment on above: Performed By: #### C BC #### [facility] [address] [place] [address] Dr. Stan Aceves IG % 0.3 % Normal 0.0-0.5 [facility] Comment on above: Performed By: #### C BC #### [facility] [address] [place] [address] Dr. Stan Aceves LYMPH # 0.9 103/ul Critically low 1.2-3.8 [facility] Comment on above: Performed By: #### C BC #### [facility] [address] [place] [address] Dr. Stan Aceves Lymphocytes/100 WBC (Bld) 9.9 % Critically low 20.5-60.0 [facility] Comment on above: Performed By: #### C BC #### [facility] [address] [place] [address] Dr. Stan Aceves MANUAL DIFF REQ NO Normal [facility] Comment on above: Performed By: #### C BC #### [facility] [address] [place] [address] Dr. Stan Aceves MCH (RBC) [Entitic mass] 25.7 pg Critically low 26.7-34.0 [facility] Comment on above: Performed By: #### C BC #### [facility] [address] [place] [address] Dr. Stan Aceves MCHC (RBC) [Mass/Vol] 31.5 g/dL Normal 29.9-35.[address] [facility] Comment on above: Performed By: #### C BC #### [facility] [address] [place] [address] Dr. Stan Aceves MCV (RBC) [Entitic vol] 81.6 fL Normal 81.0-99.0 [facility] Comment on above: Performed By: #### C BC #### [facility] [address] [place], [place] [id number] Dr. Stan Aceves MONO # 0.7 103/ul Normal 0.3-0.[address] [facility] Comment on above: Performed By: #### C BC #### [facility] [address] [place] [address] Dr. Stan Aceves Monocytes/100 WBC (Bld) 7.3 % Normal 1.7-12.0 [facility] Comment on above: Performed By: #### C BC #### [facility] [address] [place] [address] Dr. Stan Aceves NEUT # 7.4 103/ul Critically high 1.4-6.5 [facility] Comment on above: Performed By: #### C BC #### [facility] [address] [place] [address] Dr. Stan Aceves Neutrophils/100 WBC (Bld) 80.8 % Critically high 43.0-75.0 [facility] Comment on above: Performed By: #### C BC #### [facility] [address] [place] [address] Dr. Stan Aceves Platelet mean volume (Bld) [Entitic vol] 8.2 fL Critically low 9.5-13.[address] [facility] Comment on above: Performed By: #### C BC #### [facility] [address] [place] [address] Dr. Stan Aceves PLT 396 103/ul Normal 150-[address] [facility] Comment on above: Performed By: #### C BC #### [facility] [address] [place] [address] Dr. Stan Aceves RBC 4.13 106/ul Critically low 4.20-5.40 [facility] Comment on above: Performed By: #### C BC #### [facility] [address] [place] [address] Dr. Stan Aceves WBC 9.2 103/ul Normal 4.0-11.[address] [facility] Comment on above: Performed By: #### C BC #### [facility] [address] [place] [address] Dr. Stan Aceves GLYCOHEMOGLOBIN A1Con 2022 ADA RECOMMENDATION SEE BELOW Normal [facility] Comment on above: Result Comment: ADA RECOMMENDED LIMIT 4.0 - 6.0 ADA THERAPEUTIC TARGET < 7.0 ACTION SUGGESTED > 7.0 Performed By: #### A 1C #### [facility] [address] [place] [address] Dr. Stan Aceves Glucose [Mass/Vol] 126 mg/dL Normal [facility] Comment on above: Performed By: #### A 1C #### [facility] [address] [place] [address] Dr. Stan Aceves HbA1c (Bld) [Mass fraction] 6.0 % Normal 4.5-6.2 [facility] Comment on above: Performed By: #### A 1C #### [facility] [address] [place] [address] Dr. Stan Aceves IRONon 01-05-2023 Iron [Mass/Vol] 36.0 ug/dL Critically low 50.0-170.0 [facility] Comment on above: Performed By: #### I KAM #### [facility] [address] [place] [address] Dr. Stan Aceves MICROALBUMIN, RAND URon 12-16 mALB <1.3 Normal <=30.0 [facility] Comment on above: Performed By: #### M ALBR #### [facility] [address] [place] [address] Dr. Stan Aceves PROF 14(COMP METB)on 023 Albumin [Mass/Vol] 3.5 g/dL Normal 3.4-5.0 [facility] Comment on above: Performed By: #### T 4, CMP, TSH #### [facility] [address] [place] [address] Dr. Stan Aceves Albumin/Globulin [Mass ratio] 1.0 {ratio} Normal [facility] Comment on above: Performed By: #### T 4, CMP, TSH #### [facility] [address] [place] [address] Dr. Stan Aceves ALP [Catalytic activity/Vol] 105 U/L Normal 46-116 [facility] Comment on above: Performed By: #### T 4, CMP, TSH #### [facility] [address] [address] [address] Stan Aceves ALT [Catalytic activity/Vol] 20 U/L Normal 14-59 [facility] Comment on above: Performed By: #### T 4, CMP, TSH #### [facility] [address] [address] [address] Stan Aceves Anion gap [Moles/Vol] 12.1 mmol/L Normal [facility] Comment on above: Performed By: #### T 4, CMP, TSH #### [facility] [address] [place] [address] Dr. Stan Aceves AST [Catalytic activity/Vol] 14 U/L Critically low 15-37 [facility] Comment on above: Performed By: #### T 4, CMP, TSH #### [facility] [address] [place] [address] Dr. Stan Aceves Bilirubin [Mass/Vol] 0.3 mg/dL Normal 0.2-1.0 [facility] Comment on above: Performed By: #### T 4, CMP, TSH #### [facility] [address] [place] [address] Dr. Stan Aceves Calcium [Mass/Vol] 9.1 mg/dL Normal 8.5-10.1 [facility] Comment on above: Performed By: #### T 4, CMP, TSH #### [facility] [address] [place] [address] Dr. Stan Aceves Chloride [Moles/Vol] 103 mmol/L Normal 98-[address] [facility] Comment on above: Performed By: #### T 4, CMP, TSH #### [facility] [address] [place] [address] Dr. Stan Aceves CO2 [Moles/Vol] 26.8 mmol/L Normal 21.0-32.0 [facility] Comment on above: Performed By: #### T 4, CMP, TSH #### [facility] [address] [place] [address] Dr. Stan Aceves Creatinine [Mass/Vol] 0.84 mg/dL Normal 0.55-1.[address] [facility] Comment on above: Performed By: #### T 4, CMP, TSH #### [facility] [address] [place] [address] Dr. Stan Aceves EGFR-AF GUAMANIAN >60 Normal >=60 [facility] Comment on above: Performed By: #### T 4, CMP, TSH #### [facility] [address] [address] [address] Stan Aceves EGFR-NON AF GUAMANIAN >60 Normal >=60 [facility] Comment on above: Performed By: #### T 4, CMP, TSH #### [facility] [address] [place] [address] Dr. Stan Aceves Globulin (S) [Mass/Vol] 3.6 g/dL Normal [facility] Comment on above: Performed By: #### T 4, CMP, TSH #### [facility] [address] [place] [address] Dr. Stan Aceves Glucose [Mass/Vol] 84 mg/dL Normal 74-106 [facility] Comment on above: Performed By: #### T 4, CMP, TSH #### [facility] [address] [place] [address] Dr. Stan Aceves Potassium [Moles/Vol] 3.9 mmol/L Normal 3.5-5.[address] [facility] Comment on above: Performed By: #### T 4, CMP, TSH #### [facility] [address] [place] [address] Dr. Stan Aecves Protein [Mass/Vol] 7.1 g/dL Normal 6.4-8.2 [facility] Comment on above: Performed By: #### T 4, CMP, TSH #### [facility] [address] [place] [address] Dr. Stan Aceves Sodium [Moles/Vol] 138 mmol/L Normal 136-145 [facility] Comment on above: Performed By: #### T 4, CMP, TSH #### [facility] [address] [place] [address] Dr. Stan Aceves Urea nitrogen [Mass/Vol] 12.0 mg/dL Normal 7.0-18.0 [facility] Comment on above: Performed By: #### T 4, CMP, TSH #### [facility] [address] [address] [address] Stan Aceves Urea nitrogen/Creatinine [Mass ratio] 14.3 mg/mg Normal [facility] Comment on above: Performed By: #### T 4, CMP, TSH #### [facility] [address] [address] [address] Stan Aceves T4on 01-05-2023 T4 [Mass/Vol] 8.70 ug/dL Normal 4.80-13.90 [facility] Comment on above: Performed By: #### T 4, CMP, TSH #### [facility] [address] [place] [address] Dr. Stan Aceves TSHon 01-05-2023 TSH 2.209 uIU/mL Normal 0.358-3.740 [facility] Comment on above: Performed By: #### T 4, CMP, TSH #### [facility] [address] [place] [address] Dr. Stan Aceves MRI BRAIN WO W [...] PATRICK PIERRE Date: 2022-04-27 10:16 Normal [facility] CREATININEon 04-08-2022 Creatinine [Mass/Vol] 0.91 mg/dL Normal 0.55-1.02 [facility] Comment on above: Performed By: #### C ONIEL #### [facility] [address] [place] [address] Dr. Stan Aceves EGFR-AF GUAMANIAN >60 Normal >=60 [facility] Comment on above: Performed By: #### C ONIEL #### [facility] [address] [address] [address] Stan Aceves EGFR-NON AF GUAMANIAN >60 Normal >=60 [facility] Comment on above: Performed By: #### C ONIEL #### [facility] [address] [place] [address] Dr. Stan Aceves CTA ABD/PELVIS WO W [...] by: PATRICK PIERRE Date: 2022-04-08 10:04 Normal [facility] Established Visit (Otolaryng ology)on 09-26-2018 Established Visit [...] EVERY week --take 30 MINUTES before BREAKFAST;Therapy: [id number] to Recorded Rx By: Zion; Dispense: 84 [...] Dispense: 30 Days ; #:140; Refill: 0; ARIEL = N; Record; Last [...] TAKE 1 TABLET ASNEEDED during the day;Therapy: [id number] to Recorded Rx By: Zion; Dispense: 30 [...] 1:16:16 PM Lisinopril 20 MG Oral Tablet;Therapy: [id number] to Recorded Rx By: GIANNA ISABEL; Dispense: [...] Scheduling,Retrospect desmond By ProtocolAuthorization ; Requested for:15Sep2020; Perform:[facility]; Due:[id number]; Last Updated By:Carole Lanier; 09/26/2018 3:48:32 PM;Ordered; For:Acoustic neuroma; Ordered By:Shane Wilkerson;Radiologist to Determine Optimal Study : YWhat are the patient's signs and symptoms? : s/p CPA lesion resection Signatures Electronically signed by : Shane Wilkerson MD; Sep 26 2018 4:29PM EST (Author) Normal [facility] Encounters Encounter Date Encounter Type Care Provider Facility Start: 12-15-2023 End: 12-16-2023 ambulatory Zamzam Rodriguezstanford Facility:[facility] Start: 12-15-2023 End: 12-15-2023 Patient encounter procedure Zamzam Wheeler [facility] Start: 11-30-2023 End: 12-01-2023 ambulatory Zamzam Wheeler Facility:[facility] Start: 11-21-2023 End: 11-22-2023 ambulatory SHAIKH HERO Not Available Start: 10-28-2023 End: 11-10-2023 Pre-admission assessment Zamzam Wheeler [facility] Start: 01-05-2023 End: 01-06-[address] GIANNA ISABEL Facility:[facility] Start: 04-26-2022 End: 04-27-[address] GIANNA ISABEL Facility:[facility] Start: 04-08-2022 End: 04-09-[address] GIANNA ISABEL Facility: Payers Date Payer Category Payer Unknown [id number] 1955 Unknown [id number] 2.16.84 [id number] 1955 Unknown [id number] 2.16.84 [id number] 1955 Unknown [id number] 2.16.84 [id number] 1955 Unknown [id number] 2.16.84 [id number] 1955 Unknown [id number] 2.16.8 [id number] 1955 Unknown [id number] 2.16.8 [id number] Social History Date Type Detail Facility Tobacco smoking status No Smoking Status Entered [facility] Sex Assigned At Female [facility] Evaluation + Plan note Note Date & Type Note Facility Evaluation + Plan note No data available for this section [facility] Hospital Discharge instructions Note Date & Type Note Facility Hospital Discharge instructions No data available for this section [facility] Progress note Note Date & Type Note Facility Progress note No data available for this section [facility] Summary Purpose Family History No Family [...] CREATED AUTHOR AUTHOR'S ORGANIZ ATION 01/09/2023 [facility] DATE CREATED AUTHOR AUTHOR'S ORGANIZ ATION 11/26/2023 [facility] EPIC DATE CREATED AUTHOR AUTHOR'S ORGANIZ ATION 12/17/2023 [facility] Patient Care team informatio n (unrecognized section and content) Personnel Name: SHAIKH MONAHAN MD Address: Address: [facility] [address] Personnel Name: SHAIKH MONAHAN MD Address: Address: [facility] [address] [place] [address] FOR RECORDS PERTAINING TO PATIENTS WHO [...] BE BASED ON THE PRIMARY CLINICAL RECORDS. [facility] [employer] provides no warranty or guarantee of the accuracy or completeness of information in this document.
--- NOTE | 2024-01-16 08:28 | MM_ITS ---
Patient Name: JULIAN MONTAÑO MR#: [id number] : 1955 Exam Date: 01/16/2024 Ordering Doctor: Shaikh Hector Sánchez . RADIOLOGY REPORT PROCEDURE: MM TOMOSYNTHESIS SCREENING BI COMPARISON: MG MAMM SCREEN [place] W CAD, 07/04/2020. MG MAMM SCREEN 3D [place] CAD, 08/11/2021. INDICATIONS: screening Calculator Name NCI Breast Cancer Risk Assessment Tool 5 Year Breast Cancer Risk 1.10% Lifetime Breast Cancer Risk 3.30% Personal Breast Cancer No Personal Ovarian Cancer No Treatments None Family Cancers Mother with uterine cancer at age ~55. LOCATION: [facility] BREAST COMPOSITION: Almost entirely fatty. FINDINGS: DIAGNOSTIC CATEGORY 1--NEGATIVE. NO CHANGE FROM COMPARISON ASSESSMENT. RIGHT BREAST: No significant suspicious finding. LEFT BREAST: No significant suspicious finding. RECOMMENDATIONS: ROUTINE MAMMOGRAM AND CLINICAL EVALUATION IN 12 MONTHS. PLEASE NOTE: A NORMAL MAMMOGRAM DOES NOT EXCLUDE THE POSSIBILITY OF BREAST CANCER. A CLINICALLY SUSPICIOUS PALPABLE LUMP SHOULD BE BIOPSIED. Dictated by: Felice Morgan MD on 01/16/2024 at 09:09 Approved by: Felice Morgan MD on 01/16/2024 at 09:10
== END 2024-01-16 08:17 | disposition home or self-care (01) ==
LOC: MAMMO 08:17
PROVIDERS: PCP Internal Medicine; Visit Provider Internal Medicine
DX: Z12.31 Encounter for screening mammogram for malignant neoplasm of breast (principal); Z80.8 Family history of malignant neoplasm of other organs or systems
CPT/HCPCS: 77063; 77067

== ENCOUNTER 2024-03-08 16:28 | Outpatient (OUT) | payer MEDICARE, MEDICAID, SELFPAY ==
[2024-03-08 16:53] LABS: Basophils Absolute Auto 0.1 10^3/uL (0.0-0.1); Basophils Percent Auto 0.8 % (0.2-2.0); Eosinophils Absolute Auto 0.1 10^3/uL (0.0-0.7); Eosinophils Percent Auto 1.7 % (0.9-7.0); Hematocrit 36.4 % (36.0-48.0); Hemoglobin 11.1 g/dL (12.0-16.0); Immature Granulocytes Abs Auto 0.01 10^3/uL (0.00-0.03); Immature Granulocytes Pct Auto 0.1 % (0.0-0.5); Lymphocytes Absolute Auto 1.3 10^3/uL (1.2-3.8); Lymphocytes Percent Auto 16.9 % (20.5-60.0); Mean Corpuscular HGB Conc 30.5 g/dL (29.9-35.2); Mean Corpuscular Hemoglobin 25.2 pg (26.7-34.0); Mean Corpuscular Volume 82.5 fL (81.0-99.0); Mean Platelet Volume 8.4 fL (9.5-13.5); Monocytes Absolute Auto 0.6 10^3/uL (0.3-0.8); Monocytes Percent Auto 7.9 % (1.7-12.0); Neutrophils Absolute Auto 5.6 10^3/uL (1.4-6.5); Neutrophils Percent Auto 72.6 % (43.0-75.0); Platelet Count 354 10^3/uL (150-450); Red Blood Count 4.41 10^6/uL (4.20-5.40); Red Cell Distribution Width 16.1 % (11.0-15.0); White Blood Count 7.7 10^3/uL (4.0-11.0)
[2024-03-08 17:00] LABS: Estimated Average Glucose 126 mg/dL
[2024-03-08 17:10] LABS: Anion Gap 12.7; BUN Creatinine Ratio 29.1; Calcium 9.5 mg/dL (8.5-10.1); Carbon Dioxide 29.7 mmol/L (21.0-32.0); Chloride 96 mmol/L (98-107); Estimated GFR (African America >60 (>=60); Estimated GFR (Non-African Ame >60 (>=60); Glucose 104 mg/dL (74-106); Potassium 4.4 mmol/L (3.5-5.1); Sodium 134 mmol/L (136-145)
== END 2024-03-08 16:29 | disposition home or self-care (01) ==
LOC: LAB 16:29
PROVIDERS: PCP Internal Medicine; Visit Provider Internal Medicine
DX: D50.0 Iron deficiency anemia secondary to blood loss (chronic) (principal); E11.9 Type 2 diabetes mellitus without complications; I10 Essential (primary) hypertension
CPT/HCPCS: 36415; 80048; 83036; 85025

== ENCOUNTER 2024-03-08 17:01 | Outpatient (RCR) | payer MEDICARE, SELFPAY | END 2024-03-09 12:04 | disposition home or self-care (01) | LOC: PT 17:01 | PROVIDERS: PCP Internal Medicine; Visit Provider Nurse Practitioner Adult Health | DX: D33.3 Benign neoplasm of cranial nerves (principal); R29.6 Repeated falls; G62.9 Polyneuropathy, unspecified | CPT/HCPCS: 97163 ==

== ENCOUNTER 2024-06-27 07:44 | Outpatient (OUT) | payer MEDICARE, MEDICAID, SELFPAY ==
--- OUTSIDE RECORDS SUMMARY | 2024-06-27 07:50 | XMS_ITS | CCD ---
Author Organization [facility] Care Team Providers Care Section Leader Name Role Phone CHALO, DR GINANA PACHECO Admitting Unavaila ble AMBURN, DR GIANNA [...] Consulting Unavailable SHAIKH MONAHAN Primary Care Physician Windnagel, Arielle Admitting Unavailable Windnagel, Arilele Referring Unavailable Windnagel, Arielle Attending Unavailable Windnagel, Arielle Referring Unavailable Windnagel, Arielle Attending Unavailable Windnagel, Arielle Admitting Unavailable SANJAYWSHAIKH FIELDS Attending Unavailable SHAIKH MONAHAN Attending Unavailable WINDNAGEL, ARIELLE C Attending Unavailable SHAIKH MONAHAN Attending Unavailable DANIEL GILLETTE Attending Unavailabl e Problems Problem Classification Problem Date Documented Da [...] Facility Neurology Forms- Texton Neurology Forms- Text [id number] #1.00TIFF Normal [facility] Consent for Treatmenton Consent for Treatment [id number]#1 .00TIFF Normal [facility] Physician Orderon 12-05-2023 Physician Order [id number]#1 .00TIFF Normal [facility] MRI Brain w/ + w/o Contrasto [...] extracranial soft tissues are unremarkable. Ordering Provider: Arielle Ham FINAL REPORT Dictated: 12/02/2023 12:36 pm Lincoln Prater MD Signed (Electronic Signature): 12/02/2023 12:36 pm Signed by: Lincoln Prater MD Transcribed by: SANA Technologist: CORDELIA Technical Comments [employer] Contrast amount in ml's: 6 Normal [facility] MRI Spine Cervical w/o Contr bonnie 12-02-2023 [...] and foramina without significant narrowing. Ordering Provider: Arielle Ham FINAL REPORT Dictated: 12/02/2023 12:40 pm Lincoln Prater MD Signed (Electronic Signature): 12/02/2023 12:40 pm Signed by: Lincoln Prater MD Transcribed by: SANA Technologist: CORDELIA Technical Comments None Normal [facility] BUNon 11-30-2023 Urea nitrogen [Mass/Vol] 17 mg/dL Normal 5-21 [facility] Comment on above: Performed By: #### 1 [id number], [id number], [id number] #### [facility] [address] [place] [address] Consent for Treatmenton 11-14 Consent for Treatment [id number]#1 .00TIFF Normal [facility] Creatinineon 11-30-2023 Creatinine [Mass/Vol] 0.8 mg/dL Normal 0.5-1.3 [facility] Comment on above: Performed By: #### 1 [id number], [id number], [id number] #### [facility] [address] [place] [address] RAD - MRI Screening Formon 0 11-30-2023 RAD - MRI Screening Form [id number]#1 .00TIFF Normal [facility] eGFRon 11-30-2023 eGFR 79 mL/min/1.73 m2 Normal >=59 [facility] Comment on above: Order Comment: Order added by Discern Expert. Performed By: #### 1 [id number], [id number], [id number] #### [facility] [address] [place] [place] [id number] Physician Orderon 10-28-2023 Physician Order [id number]#1 .00TIFF Normal [facility] CBC AUTO DIFFon 01-05-2023 BASO # 0.1 103/ul Normal 0.0-0.1 [facility] Comment on above: Performed By: #### C BC #### [facility] [address] [address] [address] Stan Aceves Basophils/100 WBC (Bld) 0.7 % Normal 0.2-2.0 [facility] Comment on above: Performed By: #### C BC #### [facility] [address] [place] [address] Dr. Stan Aceves EO # 0.1 103/ul Normal 0.0-0.7 [facility] Comment on above: Performed By: #### C BC #### [facility] [address] [place] [address] Dr. Stan Aceves Eosinophils/100 WBC (Bld) 1.0 % Normal 0.9-7.0 [facility] Comment on above: Performed By: #### C BC #### [facility] [address] [address] [address] Stan Aceves Erythrocyte distribution width (RBC) [Ratio] 16.8 % Critically high 11.0-15.0 [facility] Comment on above: Performed By: #### C BC #### [facility] [address] [place] [address] Dr. Stan Aceves Hematocrit (Bld) [Volume fraction] 33.7 % Critically low 36.0-48.0 [facility] Comment on above: Performed By: #### C BC #### [facility] [address] [place] [address] Dr. Stan Aceves Hemoglobin (Bld) [Mass/Vol] 10.6 g/dL Critically low 12.0-16.0 [facility] Comment on above: Performed By: #### C BC #### [facility] [address] [address] [address] Stan Aceves IG # 0.03 10e3/ul Normal 0.00-0.03 [facility] Comment on above: Performed By: #### C BC #### [facility] [address] [address] [address] Stan Aceves IG % 0.3 % Normal 0.0-0.5 [facility] Comment on above: Performed By: #### C BC #### [facility] [address] [address] [address] Stan Aceves LYMPH # 0.9 103/ul Critically low 1.2-3.8 [facility] Comment on above: Performed By: #### C BC #### [facility] [address] [place] [address] Dr. Stan Aceves Lymphocytes/100 WBC (Bld) 9.9 % Critically low 20.5-60.0 [facility] Comment on above: Performed By: #### C BC #### [facility] [address] [place] [address] Dr. Stan Aceves MANUAL DIFF REQ NO Normal [facility] Comment on above: Performed By: #### C BC #### [facility] [address] [place] [address] Dr. Stan Aceves MCH (RBC) [Entitic mass] 25.7 pg Critically low 26.7-34.0 [facility] Comment on above: Performed By: #### C BC #### [facility] [address] [place] [address] Dr. Stan Aceves MCHC (RBC) [Mass/Vol] 31.5 g/dL Normal 29.9-35.2 [facility] Comment on above: Performed By: #### C BC #### [facility] [address] [place] [address] Dr. Stan Aceves MCV (RBC) [Entitic vol] 81.6 fL Normal 81.0-99.0 [facility] Comment on above: Performed By: #### C BC #### [facility] [address] [address] [address] Stan Aceves MONO # 0.7 103/ul Normal 0.3-0.8 [facility] Comment on above: Performed By: #### C BC #### [facility] [address] [address] [address] Stan Aceves Monocytes/100 WBC (Bld) 7.3 % Normal 1.7-12.0 [facility] Comment on above: Performed By: #### C BC #### [facility] [address] [address] [address] Stan Aceves NEUT # 7.4 103/ul Critically high 1.4-6.5 [facility] Comment on above: Performed By: #### C BC #### [facility] [address] [place] [address] Dr. Stan Aceves Neutrophils/100 WBC (Bld) 80.8 % Critically high 43.0-75.0 [facility] Comment on above: Performed By: #### C BC #### [facility] [address] [address] [address] Stan Aceves Platelet mean volume (Bld) [Entitic vol] 8.2 fL Critically low 9.5-13.5 [facility] Comment on above: Performed By: #### C BC #### [facility] [address] [address] [address] Stan Aceves PLT 396 103/ul Normal 150-450 [facility] Comment on above: Performed By: #### C BC #### [facility] [address] [address] [address] Stan Aceves RBC 4.13 106/ul Critically low 4.20-5.40 [facility] Comment on above: Performed By: #### C BC #### [facility] [address] [address] [address] Stan Aceves WBC 9.2 103/ul Normal 4.0-11.0 [facility] Comment on above: Performed By: #### C BC #### [facility] [address] [place] [address] Dr. Stan Aceves GLYCOHEMOGLOBIN A1Con 2022 ADA RECOMMENDATION SEE BELOW Normal [facility] Comment on above: Result Comment: ADA RECOMMENDED LIMIT 4.0 - 6.0 ADA THERAPEUTIC TARGET < 7.0 ACTION SUGGESTED > 7.0 Performed By: #### A 1C #### [facility] [address] [place] [address] Dr. Stan Aceves Glucose [Mass/Vol] 126 mg/dL Normal [facility] Comment on above: Performed By: #### A 1C #### [facility] [address] [place] [address] Dr. Stan Aceves HbA1c (Bld) [Mass fraction] 6.0 % Normal 4.5-6.2 [facility] Comment on above: Performed By: #### A 1C #### [facility] [address] [place] [address] Dr. Stan Aceves IRONon 01-05-2023 Iron [Mass/Vol] 36.0 ug/dL Critically low 50.0-170.0 [facility] Comment on above: Performed By: #### I KAM #### [facility] [address] [place] [address] Dr. Stan Aceves MICROALBUMIN, RAND URon 12-16 mALB <1.3 Normal <=30.0 [facility] Comment on above: Performed By: #### M ALBR #### [facility] [address] [place] [address] Dr. Stan Aceves PROF 14(COMP METB)on 023 Albumin [Mass/Vol] 3.5 g/dL Normal 3.4-5.0 [facility] Comment on above: Performed By: #### T 4, CMP, TSH #### [facility] [address] [place] [address] Dr. Stan Aceves Albumin/Globulin [Mass ratio] 1.0 {ratio} Normal [facility] Comment on above: Performed By: #### T 4, CMP, TSH #### [facility] [address] [address] [address] Stan Aceves ALP [Catalytic activity/Vol] 105 U/L Normal 46-116 [facility] Comment on above: Performed By: #### T 4, CMP, TSH #### [facility] [address] [place] [address] Dr. Stan Aceves ALT [Catalytic activity/Vol] 20 U/L Normal 14-59 [facility] Comment on above: Performed By: #### T 4, CMP, TSH #### [facility] [address] [place] [address] Dr. Stan Aceves Anion gap [Moles/Vol] 12.1 mmol/L Normal [facility] Comment on above: Performed By: #### T 4, CMP, TSH #### [facility] [address] [place] [address] Dr. Stan Aceves AST [Catalytic activity/Vol] 14 U/L Critically low 15-37 [facility] Comment on above: Performed By: #### T 4, CMP, TSH #### [facility] [address] [place] [address] Dr. Stan Aceves Bilirubin [Mass/Vol] 0.3 mg/dL Normal 0.2-1.0 [facility] Comment on above: Performed By: #### T 4, CMP, TSH #### [facility] [address] [place] [address] Dr. Stan Aceves Calcium [Mass/Vol] 9.1 mg/dL Normal 8.5-10.1 [facility] Comment on above: Performed By: #### T 4, CMP, TSH #### [facility] [address] [place] [address] Dr. Stan Aceves Chloride [Moles/Vol] 103 mmol/L Normal 98-107 [facility] Comment on above: Performed By: #### T 4, CMP, TSH #### [facility] [address] [place] [address] Dr. Stan Aceves CO2 [Moles/Vol] 26.8 mmol/L Normal 21.0-32.0 [facility] Comment on above: Performed By: #### T 4, CMP, TSH #### [facility] [address] [address] [address] Stan Aceves Creatinine [Mass/Vol] 0.84 mg/dL Normal 0.55-1.02 [facility] Comment on above: Performed By: #### T 4, CMP, TSH #### [facility] [address] [address] [address] Stan Aceves EGFR-AF YEMENI >60 Normal >=60 [facility] Comment on above: Performed By: #### T 4, CMP, TSH #### [facility] [address] [address] [address] Stan Aceves EGFR-NON AF YEMENI >60 Normal >=60 [facility] Comment on above: Performed By: #### T 4, CMP, TSH #### [facility] [address] [address] [address] Stan Aceves Globulin (S) [Mass/Vol] 3.6 g/dL Normal [facility] Comment on above: Performed By: #### T 4, CMP, TSH #### [facility] [address] [address] [address] Stan Aceves Glucose [Mass/Vol] 84 mg/dL Normal 74-106 [facility] Comment on above: Performed By: #### T 4, CMP, TSH #### [facility] [address] [address] [address] Stan Aceves Potassium [Moles/Vol] 3.9 mmol/L Normal 3.5-5.1 [facility] Comment on above: Performed By: #### T 4, CMP, TSH #### [facility] [address] [address] [address] Stan Aceves Protein [Mass/Vol] 7.1 g/dL Normal 6.4-8.2 [facility] Comment on above: Performed By: #### T 4, CMP, TSH #### [facility] [address] [address] [address] Stan Aceves Sodium [Moles/Vol] 138 mmol/L Normal 136-145 [facility] Comment on above: Performed By: #### T 4, CMP, TSH #### [facility] [address] [address] [address] Stan Aceves Urea nitrogen [Mass/Vol] 12.0 mg/dL Normal 7.0-18.0 [facility] Comment on above: Performed By: #### T 4, CMP, TSH #### [facility] [address] [place] [address] Dr. Stan Aceves Urea nitrogen/Creatinine [Mass ratio] 14.3 mg/mg Normal [facility] Comment on above: Performed By: #### T 4, CMP, TSH #### [facility] [address] [place] [address] Dr. Stan Aceves T4on 01-05-2023 T4 [Mass/Vol] 8.70 ug/dL Normal 4.80-13.90 [facility] Comment on above: Performed By: #### T 4, CMP, TSH #### [facility] [address] [place] [address] Dr. Stan Aceves TSHon 01-05-2023 TSH 2.209 uIU/mL Normal 0.358-3.740 [facility] Comment on above: Performed By: #### T 4, CMP, TSH #### [facility] [address] [place] [address] Dr. Stan Aceves MRI BRAIN WO W CONon 14-2 022 MRI BRAIN WO W CON EXAMINATION: [...] by: PATRICK PIERRE Date: 2022-04-27 10:16 Normal [facility] CREATININEon 04-08-2022 Creatinine [Mass/Vol] 0.91 mg/dL Normal 0.55-1.02 [facility] Comment on above: Performed By: #### C ONIEL #### [facility] [address] [place] [address] Dr. Stan Aceves EGFR-AF YEMENI >60 Normal >=60 [facility] Comment on above: Performed By: #### C ONIEL #### [facility] [address] [address] [address] Stan Aceves EGFR-NON AF YEMENI >60 Normal >=60 [facility] Comment on above: Performed By: #### C ONIEL #### [facility] [address] [place] [address] Dr. Stan Aceves CTA ABD/PELVIS WO W [...] by: PATRICK PIERRE Date: 2022-04-08 10:04 Normal [facility] Established Visit (Otolaryng ology)on 09-26-2018 Established [...] EVERY week --take 30 MINUTES before BREAKFAST;Therapy: 30Jul2016 to Recorded Rx By: Zion; Dispense: 84 [...] TAKE 1 TABLET ASNEEDED during the day;Therapy: [id number] to Recorded Rx By: Zion; Dispense: 30 [...] 1:16:16 PM Lisinopril 20 MG Oral Tablet;Therapy: [id number] to Recorded Rx By: GIANNA ISABEL; Dispense: [...] 1:16:16 PM Simvastatin 20 MG Oral Tablet;Therapy: [id number] to Recorded Rx By: GIANNA ISABEL; Dispense: 30 Days ; #:30; Refill: 0; ARIEL = N; Record; Last Updated By: Mc Winter; 08/20/2014 1:02:13 PM True Metrix Meter w/Device Kit; use to test BLOOD SUGAR DAILY;Therapy: [id number] to Recorded Rx By: Chalo; Dispense: 1 Days ; #:1; Refill: 0; ARIEL = N; Record; Last Updated By: Domenica Topete; 10/11/2017 1:16:16 PM Ulti-Michael Automatic;Therapy: [id number] to Recorded Dispense: 30 Days ; #:1; Refill: 0; ARIEL = N; Record; Last Updated By: Rachel Contreras; 10/10/2013 3:23:22 PM Diagnoses/Problems Acoustic neuroma (225.1) (D33.3) Orders MRI IAC w/wo Contrast; Status:Hold For - Scheduling,Retrospect desmond By ProtocolAuthorization ; Requested for:[id number]; Perform:[facility]; Due:[id number]; Last Updated By:Carole Lanier; 09/26/2018 3:48:32 PM;Ordered; For:Acoustic neuroma; Ordered By:Shane Wilkerson;Radiologist to Determine Optimal Study : YWhat are the patient's signs and symptoms? : s/p CPA lesion resection Signatures Electronically signed by : Shane Wilkerson MD; Sep 26 2018 4:29PM EST (Author) [facility] Encounters Encounter Date Encounter Type Care Provider Facility Start: 06-21-2024 End: 06-21-2024 ambulatory DANIEL GILLETTE Not Available Start: 03-08-2024 End: 03-08-2024 ambulatory SHAIKH HERO Not Available Start: 03-01-2024 End: 03-01-2024 ambulatory ARIELLE HAM Not Available Start: 01-26-2024 End: 01-26-2024 ambulatory SHAIKH HERO Not Available Start: 12-15-2023 End: 12-16-2023 ambulatory Arielle Ham Facility:[facility] Start: 12-15-2023 End: 12-15-2023 Patient encounter procedure Arielle Ham [facility] Start: 11-30-2023 End: 12-01-2023 ambulatory Arielle Ham Facility:[facility] Start: 11-21-2023 End: 11-21-2023 ambulatory SHAIKH HERO Not Available Start: 10-28-2023 End: 11-10-2023 Pre-admission assessment Arielle Ham [facility] Start: 01-05-2023 End: 01-06-[address] GIANNA ISABEL Facility: Start: 04-26-2022 End: 04-27-[address] GIANNA ISABEL Facility:[facility] Start: 04-08-2022 End: 04-09-[address] GIANNA ISABEL Facility: Payers Date Payer Category Payer Medicare [id number] 1961 Unknown [id number] 1955 Unknown [id number] 2.16.84 [id number] 1955 Unknown [id number] .16.84 [id number] 1955 Unknown [id number] .16.84 0.1.233059.3.579.2.59 1955 Unknown [id number] 2.16.8 [id number] 1955 Unknown [id number] 2.16.8 [id number] 1955 Unknown [id number] 2.16.84 0.1.872414.3.579.2.1259 1955 Unknown [id number] 2.16.84 0.1.451232.3.579.2.1259 1955 Unknown [id number] 2.16.84 0.1.761697.3.579.2.1259 1955 Unknown [id number] 2.16.84 0.1.790086.3.579.2.9 1955 Unknown [id number] 2.16.84 [id number] Social History Date Type Detail Facility Tobacco smoking status No Smoking Status Entered [facility] Sex Assigned At Female [facility] Evaluation + Plan note Note Date & Type Note Facility Evaluation + Plan note No data available for this section [facility] Hospital Discharge instructions Note Date & Type Note Facility Hospital Discharge instructions No data available for this section [facility] Progress note Note Date & Type Note Facility Progress note No data available for this section [facility] Summary Purpose Family History No Family History Records FoundNo Family History Records Found No data available for this section No data available for this section No Family History Records FoundNo Family History Records Found Advance Directives No Advanced Directives Records FoundNo Advanced Directives Records FoundNo Advanced Directives Records FoundNo Advanced Directives Records Found Additional Source Comments INFORMATION SOURCE (unrecogn ized section and content) DATE CREATED AUTHOR 10/22/2018 [facility] DATE CREATED AUTHOR AUTHOR'S ORGANIZ ATION 01/09/2023 [facility] DATE CREATED AUTHOR AUTHOR'S ORGANIZ ATION 12/17/[address] [facility] DATE CREATED AUTHOR AUTHOR'S ORGANIZ ATION 06/23/2024 [facility] EPIC Patient Care team informatio n (unrecognized section and content) Personnel Name: SHAIKH MONAHAN MD Address: Address: [address] [place] [address] Personnel Name: SHAIKH MONAHAN MD Address: Address: [address] [place] [address] FOR RECORDS PERTAINING TO PATIENTS WHO ARE [...] BE BASED ON THE PRIMARY CLINICAL RECORDS. [facility]. provides no warranty or guarantee of the accuracy or completeness of information in this document.
[2024-06-27 08:34] LABS: Basophils Absolute Auto 0.1 10^3/uL (0.0-0.1); Basophils Percent Auto 1.2 % (0.2-2.0); Eosinophils Absolute Auto 0.2 10^3/uL (0.0-0.7); Eosinophils Percent Auto 2.5 % (0.9-7.0); Hematocrit 36.4 % (36.0-48.0); Hemoglobin 11.4 g/dL (12.0-16.0); Immature Granulocytes Abs Auto 0.04 10^3/uL (0.00-0.03); Immature Granulocytes Pct Auto 0.6 % (0.0-0.5); Lymphocytes Absolute Auto 1.2 10^3/uL (1.2-3.8); Lymphocytes Percent Auto 17.1 % (20.5-60.0); Mean Corpuscular HGB Conc 31.3 g/dL (29.9-35.2); Mean Corpuscular Hemoglobin 26.2 pg (26.7-34.0); Mean Corpuscular Volume 83.7 fL (81.0-99.0); Mean Platelet Volume 8.4 fL (9.5-13.5); Monocytes Absolute Auto 0.7 10^3/uL (0.3-0.8); Monocytes Percent Auto 9.9 % (1.7-12.0); Neutrophils Absolute Auto 4.8 10^3/uL (1.4-6.5); Neutrophils Percent Auto 68.7 % (43.0-75.0); Platelet Count 350 10^3/uL (150-450); Red Blood Count 4.35 10^6/uL (4.20-5.40); Red Cell Distribution Width 17.2 % (11.0-15.0); White Blood Count 6.9 10^3/uL (4.0-11.0)
[2024-06-27 09:58] LABS: Chol HDL Ratio 2.7; Cholesterol 133 mg/dL (<=200); HDL Cholesterol 50 mg/dL (40-60); Triglycerides 55 mg/dL (<=150)
[2024-06-27 10:03] LABS: Percent Iron Saturation 7.5 %
[2024-06-28 07:11] LABS: Transferrin 326 mg/dL (192-364)
== END 2024-06-27 07:45 | disposition home or self-care (01) ==
LOC: LAB 07:48
DX: E78.49 Other hyperlipidemia (principal); I10 Essential (primary) hypertension; D50.0 Iron deficiency anemia secondary to blood loss (chronic); E11.9 Type 2 diabetes mellitus without complications; E55.9 Vitamin D deficiency, unspecified
CPT/HCPCS: 36415; 80061; 82306; 82607; 82728; 83540; 83550; 84466; 85025

== ENCOUNTER 2024-12-09 15:55 | Emergency (ER) | payer MEDICARE, MEDICAID, SELFPAY ==
[2024-12-09] VITALS (32 sets, daily range): BP systolic 95–179; BP diastolic 53–100; PULSE 92–118; TEMP 37.4; O2SAT 89–100; BMI 25.8
--- NOTE | 2024-12-09 15:59 | CT_ITS ---
The [address] [address] Patient Name: JULIAN MONTAÑO MRN: [id number] date: 1955 Sex: F Assigned Patient Location: ER Current Patient Location: ER Accession/Order Number: [id number] Exam Date: 12/09/2024 16:40 Report Date: 12/09/2024 17:07 At the request of: ALY SHRESTHA Procedure: CT head/brain wo con CT head/brain wo con, CT cervical spine wo con, 12/09/2024 4:40 PM EST INDICATION: trauma and fall COMPARISON: Prior MRI of the brain dated 04/26/2022 TECHNIQUE: Axial images of 3 mm are obtained from the base of the skull to vertex completed with Axial images of 2 mm are obtained from base of skull to T2 without contrast. Dose reduction techniques were achieved by using automated exposure control and/or adjustment of mA and/or kV according to patient size and/or use of iterative reconstruction technique. FINDINGS: There is status post right canal wall up mastoidectomy with stable air-fluid level posterior to the surgical bed. The cerebral and cerebellar sulci as well as ventricular system are appropriate for age. There is no intracranial mass, mass effect, midline shift, intra or extra-axial fluid collection. No acute territorial infarction or hemorrhage is noted. The visualized portions of orbits, mastoid air cells as well as paranasal sinuses are unremarkable. There is no suspicious osteolytic or osteoblastic lesion. No acute fracture or dislocation is noted. Multilevel degenerative changes of cervical spine are noted. There is diffuse demineralization of bone. Partially visualized endotracheal tube is noted. CT/CT head/brain wo con IMPRESSION: No acute intracranial process is identified. No acute fracture. Electronically authenticated by: TORRI LAND Date: 12/09/2024 17:07
--- NOTE | 2024-12-09 15:59 | XR_ITS ---
[address] [address] Patient Name: JULIAN MONTAÑO MRN: [id number] date: 1955 Sex: F Assigned Patient Location: ED.MAIN Current Patient Location: ER Accession/Order Number: [id number] Exam Date: 12/09/2024 16:55 Report Date: 12/09/2024 17:27 At the request of: ALY SHRESTHA Procedure: XR chest 1V EXAM: XR chest 1V TECHNIQUE: Single AP view chest HISTORY: post intubation COMPARISON: CT scan 03/22/2019 FINDINGS: The heart and mediastinum are unremarkable. Endotracheal tube is seen in proper position. Calcified granuloma of the mediastinum. No acute consolidation. Stable emphysematous changes. Osseous structures appear intact. XR/XR chest 1V IMPRESSION: No acute consolidation. Endotracheal tube in proper position. Electronically authenticated by: CLAUDIA DIAZ Date: 12/09/2024 17:27
--- NOTE | 2024-12-09 15:59 | ECG_ITS ---
The [facility] Test Date: 2024-12-09 Pat Name: JULIAN MONTAÑO Department: Room: - Gender: Female [employer]: : 1955 Requested By: [id number] Order Number: [id number] Reading MD: CHARLES CANALES Measurements Intervals [place] Rate: 116 P: 78 TN: 152 QRS: -34 QRSD: 126 T: 58 QT: 352 QTc: 421 Interpretive Statements 1120 Sinus tachycardia 2450 Right bundle branch block 7200 Abnormal left axis deviation 9150 abnormal ECG No previous ECG available for comparison Electronically Signed On 12-10-2024 6:51:02 EST by CHARLES CANALES
[2024-12-09] MEDS: IPRATROPIUM/ALBUTEROL SULFATE 3 ML AMPUL.NEB IH (16:00)
--- OUTSIDE RECORDS SUMMARY | 2024-12-09 16:02 | XMS_ITS | CCD ---
Author Organization [facility] Care Team Providers Care Physical Science Aide Name Role Phone CHALO, DR GIANNA PACHECO [...] ZIEBER, DR PATRICK [employer] Unavailable SHAIKH SÁNCHEZ Primary Care Physician [phone] Windnagel, Arielle Admitting Unavailable Windnagel, Arielle Referring Unavailable Windnagel, Arielle Attending Unavailable Windnagel, Arielel Referring Unavailable Windnagel, Arielle Attending Unavailable Windnagel, Arielle Admitting Unavailable Shaikh Sánchez MD Unavailable Liam RIVER RAFTING GUIDE, Arielle C Unavailable Shaikh Sánchez MD Primary Care Provider Kirstin Carreon LPN Unavailable Unavailable Ian Rader MD Primary Care Provider Jhoana Cardoso NP Unavailable SHAIKH SÁNCHEZ Attending Unavailable SHAIKH SÁNCHEZ Attending Unavailable VILMANABILLY, ARIELLE C Attending Unavailable SHAIKH SÁNCHEZ Attending Unavailable JHOANA CARDOSO Attending UnavailJHOANA Humphrey Attending Unavailrocky Romero LPN, Gustavo Unavailable Unavailable Liam GARZA, Arielle Edmonds Unavailable [phone] Arturo Chanel MA Unavailable Unavailable Medications Current Medications Medication Drug Class(es) Dates Sig (Normalized) Sig (Original) [id number] 200 actuat albuterol 0.09 mg/actuat metered dose inhaler (20 sources) beta2-Adrenergic Agonist Start: 06-21-2024 End: 11-27-2024 take 2 puff(s) by inhalation every four hours for wheezing albuterol HFA 90 mcg/act inhaler Indications: Asthma with COPD (chronic obstructive pulmonary disease) ([facility]) Inhale 2 puffs every 4 (four) hours if needed for wheezing 18 g 11/27/2024 Active amoxicillin 875 mg / clavulanate 125 mg oral tablet (2 sources) Penicillin-class Antibacterial Start: 09-20-2024 End: 09-30-2024 take 1 tablet by mouth in the morning amoxicillin-clavulan ate (Augmentin) 875-125 MG tablet Indications: Non-recurrent acute serous otitis media of left ear Take 1 tablet (875 mg) by mouth in the morning and 1 tablet (875 mg) before bedtime. Do all this for 10 days. 20 tablet 09/20/2024 09/30/2024 Active atorvastatin 40 mg oral tablet (20 sources) HMG-CoA Reductase Inhibitor Start: 04-30-2024 End: 09-11-2024 take 1 tablet by mouth once daily atorvastatin (Lipitor) 40 MG tablet Indications: Hyperlipidemia, unspecified ([facility]) Take 1 tablet (40 mg) by mouth Daily 90 tablet 09/11/2024 Active cholecalciferol 0.05 mg oral tablet (18 sources) Vitamin D Start: 06-21-2024 take 1 tablet by mouth once daily cholecalciferol (Vitamin D-3) 50 MCG (1999 UT) tablet Indications: Vitamin D deficiency Take 1 tablet (50 mcg) by mouth Daily 90 tablet 06/21/2024 Active ferrous gluconate 324 mg oral tablet (1 source) Start: 04-30-2024 End: 07-07-2024 take 1 tablet by mouth once daily ferrous gluconate (Fergon) 324 (38 Fe) MG tablet Indications: Iron deficiency TAKE 1 TABLET BY MOUTH DAILY 100 tablet 04/30/2024 07/07/2024 Discontinued (Therapy completed) ferrous sulfate 325 mg delayed release oral tablet (20 sources) Start: 07-07-2024 End: 12-06-2025 take 1 tablet by mouth at mealtime ferrous sulfate (Fe Tabs) 325 (65 Fe) MG EC tablet Indications: 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 loss Take 1 tablet (325 mg) by mouth in the morning. Take with meals. Do not crush, chew, or split.. 30 tablet 11 12/06/2024 12/06/2025 Active Fluticasone-Umeclidi n-Vilant (Trelegy Ellipta) 200-62.5-25 MCG/ACT aerosol powder (19 sources) Start: 08-27-2024 Fluticasone-Umeclidi n-Vilant (Trelegy Ellipta) 200-62.5-25 MCG/ACT aerosol powder Indications: Asthma with COPD (chronic obstructive pulmonary disease) ([facility]) Inhale 1 Inhalation Daily 3 each 1 08/27/2024 Active Start: 08-27-2024 End: 11-25-2024 Qqoajzzujsk-Wnmjtzebu-Oieyrj (Trelegy Ellipta) 200-62.5-25 MCG/ACT aerosol powder Indications: Asthma with COPD (chronic obstructive pulmonary disease) ([facility]) Inhale 1 Inhalation Daily 3 each 1 08/27/2024 11/25/2024 Active Start: 06-11-2024 End: 08-27-2024 Qnyttbnkdex-Mhjcqtroe-Ciioqy (Trelegy Ellipta) 200-62.5-25 MCG/ACT aerosol powder Indications: Asthma with COPD (chronic obstructive pulmonary disease) ([facility]) Inhale 1 Inhalation Daily 3 each 1 06/11/2024 08/27/2024 Discontinued (Reorder) Start: 06-11-2024 End: 09-09-2024 Haxxzghymlg-Hnixlxpbv-Pnmisy (Trelegy Ellipta) 200-62.5-25 MCG/ACT aerosol powder Indications: Asthma with COPD (chronic obstructive pulmonary disease) ([facility]) Inhale 1 Inhalation Daily 3 each 1 06/11/2024 09/09/2024 Active hydroCHLOROthiazide 12.5 mg / losartan potassium 50 mg oral tablet (13 sources) Thiazide Diuretic, Angiotensin 2 Receptor Lloyd Start: 01-26-2024 End: 01-25-2025 take 1 tablet by mouth once daily losartan-hydroCHLOROthiazide (Hyzaar) 50-12.5 MG tablet Indications: Primary hypertension (CMS/HCC) Take 1 tablet by mouth Daily 30 tablet 11 01/26/2024 09/20/2024 Discontinued (Dose adjustment) losartan potassium 50 mg oral tablet (7 sources) Angiotensin 2 Receptor Lloyd Start: 09-20-2024 End: 09-20-2025 take 1 tablet by mouth once daily losartan (Cozaar) 50 MG tablet Indications: Primary hypertension (CMS/HCC) Take 1 tablet (50 mg) by mouth Daily 30 tablet 09/20/2024 09/20/2025 Active meloxicam 7.5 mg oral tablet (15 sources) Nonsteroidal Anti-inflammat ory Drug Start: 04-30-2024 End: 09-20-2024 take 1 tablet by mouth once daily meloxicam (Mobic) 7.5 MG tablet Indications: Other bursitis of elbow, left elbow Take 1 tablet (7.5 mg) by mouth Daily 90 tablet 07/26/2024 Active metFORMIN hydrochloride 500 mg oral tablet (20 sources) Biguanide Start: 04-30-2024 End: 09-11-2024 take 1 tablet by mouth once daily metFORMIN (Glucophage) 500 MG tablet Indications: Type 2 diabetes mellitus without complications (CMS/HCC) Take 1 tablet (500 mg) by mouth Daily 100 tablet 09/11/2024 Active omeprazole 20 mg delayed release oral capsule (19 sources) Proton Pump Inhibitor Start: 01-30-2024 End: 10-22-2024 take 1 capsule by mouth once daily omeprazole (PriLOSEC) [address] capsule Indications: Gastro-esophageal reflux disease without esophagitis Take 1 capsule (20 mg) by mouth Daily 100 capsule 2 10/22/2024 Active PEG 3350 (Glycolax, Miralax) 4 gram packet (2 sources) PEG 3350 (Glycol ax, Miralax) 4 gram packet 17 g in the morning. Active sertraline 50 mg oral tablet (20 sources) Serotonin Reuptake Inhibitor Start: 04-30-2024 End: 10-22-2024 take 1 tablet by mouth once daily sertraline (Zoloft) 50 MG tablet Indications: Depression, unspecified ([facility]) TAKE 1 TABLET BY MOUTH DAILY 100 tablet 10/22/2024 Active Problems Active Problems Problem Classification Problem Date Documented Date Episodic/Chronic Aortic; peripheral; and visceral artery aneurysms (4 sources) Aneurysm of other specified arteries; Translations: [ANEURYSM OTHER SPECIFIED ARTERIES] Onset: 04-08-2022 Chronic Asthma (20 sources) Asthma-chronic obstructive pulmonary disease overlap syndrome; Translations: [Asthma with COPD (chronic obstructive pulmonary disease) ([facility])] Onset: 11-21-2023 08-27-2024 Chronic Chronic obstructive pulmonary disease and bronchiectasis (1 source) Chronic obstructive pulmonary disease, unspecified; Translations: [COPD UNSPECIFIED] Onset: 01-09-2023 Chronic Deficiency and other anemia (20 sources) Iron 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; Translations: [Iron deficiency anemia secondary to blood loss (chronic)] Onset: 11-21-2023 11-21-2023 Chronic Deficiency and other anemia (1 source) Anemia, unspecified; Translations: [ANEMIA UNSPECIFIED] Onset: 01-09-2023 Episodic Diabetes mellitus without complication (20 sources) Type 2 diabetes mellitus without complications; Translations: [Type 2 diabetes mellitus without complication] Onset: 01-05-2023 Chronic Disorders of lipid metabolism (20 sources) Hyperlipidemia; Translations: [Other hyperlipidemia] Onset: 11-21-2023 11-21-2023 Chronic Esophageal disorders (1 source) Gastroesophageal reflux disease without esophagitis; Translations: [Gastro-esophageal reflux disease without esophagitis] 10-22-2024 Chronic Essential hypertension (20 sources) Essential hypertension; Translations: [Essential (primary) hypertension] Onset: 01-26-2024 01-26-2024 Chronic Mood disorders (20 sources) Recurrent major depression in full remission; Translations: [Major depressive disorder, recurrent, in full remission] Onset: 11-21-2023 11-21-2023 Chronic Nutritional deficiencies (18 sources) Vitamin D deficiency; Translations: [Vitamin D deficiency, unspecified] Onset: 06-21-2024 06-21-2024 Chronic Other and unspecified benign neoplasm (4 sources) Benign neoplasm of cranial nerves; Translations: [BENIGN NEOPLASM OF CRANIAL NERVES] Onset: 04-26-2022 Chronic Other and unspecified benign neoplasm (18 sources) Acoustic neuroma; Translations: [Benign neoplasm of cranial nerves] Onset: 01-26-2024 02-23-2024 Chronic Other and unspecified benign neoplasm (18 sources) Acoustic neuroma of right vestibular nerve; Translations: [Benign neoplasm of cranial nerves] Onset: 02-23-2024 02-23-2024 Chronic Other connective tissue disease (2 sources) Other bursitis of elbow, left elbow; Translations: [Other enthesopathy of elbow region] 09-11-2024 Episodic Other connective tissue disease (1 source) Bursitis of elbow; Translations: [Other bursitis of elbow, left elbow] 07-25-2024 Episodic Other ear and sense organ disorders (18 sources) Sensorineural hearing loss in right ear; Translations: [Unspecified sensorineural hearing loss] Onset: 08-20-2021 03-08-2024 Chronic Other nervous system disorders (18 sources) Spinal cord disease; Translations: [Disease of spinal cord, unspecified] Onset: 02-23-2024 02-23-2024 Chronic Other nervous system disorders (18 sources) Disorder of nervous system; Translations: [Demyelinating disease of central nervous system, unspecified] Onset: 02-23-2024 02-23-2024 Chronic Other nervous system disorders (1 source) Ataxia, unspecified; Translations: [ATAXIA UNSPECIFIED] Onset: 01-09-2023 Episodic Other nutritional; endocrine; and metabolic disorders (1 source) Abnormal weight loss; Translations: [ABNORMAL WEIGHT LOSS] Onset: 01-09-2023 Episodic Otitis media and related conditions (2 sources) Acute non-suppurative otitis media - serous; Translations: [Acute serous otitis media, left ear] 09-20-2024 Episodic Substance-related disorders (18 sources) Smoker; Translations: [Nicotine dependence, unspecified, uncomplicated] Onset: 11-21-2023 11-21-2023 Chronic Past or Other Problems Problem Classification Problem Date Documented Da te Episodic/Chronic Mood disorders (18 sources) Mood disorders Onset: 03-08-2024 03-08-2024 Other and unspecified benign neoplasm (18 sources) Other benign neoplasm of skin of right ear and external auricular canal; Translations: [Benign neoplasm of ear and external auditory canal] Onset: 06-21-2024 06-21-2024 Episodic Other connective tissue disease (18 sources) Recurrent falls ; Translations: [Repeated falls] Onset: 02-23-2024 02-23-2024 Episodic Other gastrointestinal disorders (18 sources) Occult blood in stools; Translations: [Other fecal abnormalities] Onset: 11-29-2019 01-26-2024 Episodic Other screening for suspected conditions (not mental disorders or infectious disease) (18 sources) Patient encounter status; Translations: [Encounter for screening mammogram for malignant neoplasm of breast] Onset: 11-21-2023 11-21-2023 Episodic Results Test Name Value Interpretation Reference Range Facility HbA1c (Bld) [Mass fraction]o n 09-20-2024 Interpretation and review of laboratory results Normal [facility] - Hematology and Cell countson 09-20-2024 HbA1c (Bld) [Mass fraction] 6.1 % [facility] Forms- [facility] Forms- Text [id number] #1.00TIFF Normal [facility] Consent for Treatmenton Consent for Treatment [id number]#1 .00TIFF Normal [facility] Physician Orderon 12-05-2023 Physician Order [id number]#1 .00TIFF Normal [facility] MRI Brain w/ + w/o Contrasto [...] Contrast amount in ml's: 6 Normal [facility] MRI Spine Cervical w/o Contr [...] SANA Technologist: CORDELIA Technical Comments None Normal [facility] BUNon 11-30-2023 Urea nitrogen [Mass/Vol] 17 mg/dL Normal 5-[address] [facility] Comment on above: Performed By: #### 1 [id number], [id number] #### [facility] [address] [place] [address] Consent for Treatmenton 11-14 Consent for Treatment [id number] .00TIFF Normal [facility] Creatinineon 11-30-2023 Creatinine [Mass/Vol] 0.8 mg/dL Normal 0.5-1.[address] [facility] Comment on above: Performed By: #### 1 [id number], [id number], [id number] #### [facility] [address] [place] [address] RAD - MRI Screening Formon 0 11-30-2023 RAD - MRI Screening Form [id number]#1 .00TIFF Normal [facility] eGFRon 11-30-2023 eGFR 79 mL/min/1.73 m2 Normal >=[address] [facility] Comment on above: Order Comment: Order added by Discern Expert. Performed By: #### 1 [id number], [id number], [id number] #### [facility] [address] [place] [address] Physician Orderon 10-28-2023 Physician Order [id number]#1 .00TIFF Normal [facility] CBC AUTO DIFFon 01-05-2023 BASO # 0.1 103/ul Normal 0.0-0.1 [facility] Comment on above: Performed By: #### C BC #### [facility] [address] [place] [address] Dr. Stan Aceves Basophils/100 WBC (Bld) 0.7 % Normal 0.2-2.0 [facility] Comment on above: Performed By: #### C BC #### [facility] [address] [place] [address] Dr. Stan Aceves EO # 0.1 103/ul Normal 0.0-0.7 [facility] Comment on above: Performed By: #### C BC #### [facility] [address] [place] [address] Dr. Stan Aceves Eosinophils/100 WBC (Bld) 1.0 % Normal 0.9-7.0 [facility] Comment on above: Performed By: #### C BC #### [facility] [address] [place] [address] Dr. Stan Aceves Erythrocyte distribution width (RBC) [Ratio] 16.8 % Critically high 11.0-15.0 [facility] Comment on above: Performed By: #### C BC #### [facility] [address] [place] [address] Dr. Stan Aceves Hematocrit (Bld) [Volume fraction] 33.7 % Critically low 36.0-48.0 [facility] Comment on above: Performed By: #### C BC #### [facility] [address] [place] [address] Dr. Stan Aceves Hemoglobin (Bld) [Mass/Vol] 10.6 g/dL Critically low 12.0-16.[address] [facility] Comment on above: Performed By: #### C BC #### [facility] [address] [place] [address] Dr. Stan Aceves IG # 0.03 10e3/ul Normal 0.00-0.03 [facility] Comment on above: Performed By: #### C BC #### [facility] [address] [place] [address] Dr. Stan Aceves IG % 0.3 % Normal 0.0-0.5 [facility] Comment on above: Performed By: #### C BC #### [facility] [address] [place] [address] Dr. Stan Aceves LYMPH # 0.9 103/ul Critically low 1.2-3.8 [facility] Comment on above: Performed By: #### C BC #### [facility] [address] [place] [address] Dr. Stan Aceves Lymphocytes/100 WBC (Bld) 9.9 % Critically low 20.5-60.0 [facility] Comment on above: Performed By: #### C BC #### [facility] [address] [place] [address] Dr. Stan Aceves MANUAL DIFF REQ NO Normal [facility] Comment on above: Performed By: #### C BC #### [facility] [address] [place] [address] Dr. Stan Aceves MCH (RBC) [Entitic mass] 25.7 pg Critically low 26.7-34.[address] [facility] Comment on above: Performed By: #### C BC #### [facility] [address] [place] [address] Dr. Stan Aceves MCHC (RBC) [Mass/Vol] 31.5 g/dL Normal 29.9-35.[address] [facility] Comment on above: Performed By: #### C BC #### [facility] [address] [place] [address] Dr. Stan Aceves MCV (RBC) [Entitic vol] 81.6 fL Normal 81.0-99.0 [facility] Comment on above: Performed By: #### C BC #### [facility] [address] [place] [address] Dr. Stan Aceves MONO # 0.7 103/ul Normal 0.3-0.8 [facility] Comment on above: Performed By: #### C BC #### [facility] [address] [place] [address] Dr. Stan Aceves Monocytes/100 WBC (Bld) 7.3 % Normal 1.7-12.0 [facility] Comment on above: Performed By: #### C BC #### [facility] [address] [place] [address] Dr. Stan Aceves NEUT # 7.4 103/ul Critically high 1.4-6.[address] [facility] Comment on above: Performed By: #### C BC #### [facility] [address] [place] [address] Dr. Stan Aceves Neutrophils/100 WBC (Bld) 80.8 % Critically high 43.0-75.0 [facility] Comment on above: Performed By: #### C BC #### [facility] [address] [place] [address] Dr. Stan Aceves Platelet mean volume (Bld) [Entitic vol] 8.2 fL Critically low 9.5-13.[address] [facility] Comment on above: Performed By: #### C BC #### [facility] [address] [place] [address] Dr. Stan Aceves PLT 396 103/ul Normal 150-[address] [facility] Comment on above: Performed By: #### C BC #### [facility] [address] [place] [address] Dr. Stan Aceves RBC 4.13 106/ul Critically low 4.20-5.[address] [facility] Comment on above: Performed By: #### C BC #### [facility] [address] [place] [address] Dr. Stan Aceves WBC 9.2 103/ul Normal 4.0-11.0 [facility] Comment on above: Performed By: #### C BC #### [facility] [address] [place] [address] Dr. Stan Aceves GLYCOHEMOGLOBIN A1Con 2022 ADA RECOMMENDATION SEE BELOW Normal [facility] Comment on above: Result Comment: ADA RECOMMENDED LIMIT 4.0 - 6.0 ADA THERAPEUTIC TARGET < 7.0 ACTION SUGGESTED > 7.0 Performed By: #### A 1C #### [facility] [address] [place] [address] Dr. Stan Aceves Glucose [Mass/Vol] 126 mg/dL Normal [facility] Comment on above: Performed By: #### A 1C #### [facility] [address] [place] [address] Dr. Stan Aceves HbA1c (Bld) [Mass fraction] 6.0 % Normal 4.5-6.2 [facility] Comment on above: Performed By: #### A 1C #### [facility] [address] [place] [address] Dr. Stan Aceves IRONon 01-05-2023 Iron [Mass/Vol] 36.0 ug/dL Critically low 50.0-170.0 [facility] Comment on above: Performed By: #### I KAM #### [facility] [address] [place] [address] Dr. Stan Aceves MICROALBUMIN, RAND URon 12-16 mALB <1.3 Normal <=30.0 [facility] Comment on above: Performed By: #### M ALBR #### [facility] [address] [place] [address] Dr. Stan Aceves PROF 14(COMP METB)on 023 Albumin [Mass/Vol] 3.5 g/dL Normal 3.4-5.0 [facility] Comment on above: Performed By: #### T 4, CMP, TSH #### [facility] [address] [place] [address] Dr. Stan Aceves Albumin/Globulin [Mass ratio] 1.0 {ratio} Normal [facility] Comment on above: Performed By: #### T 4, CMP, TSH #### [facility] [address] [address] [address] Stan Aceves ALP [Catalytic activity/Vol] 105 U/L Normal 46-116 [facility] Comment on above: Performed By: #### T 4, CMP, TSH #### [facility] [address] [address] [address] Stan Aceves ALT [Catalytic activity/Vol] 20 U/L Normal 14-59 [facility] Comment on above: Performed By: #### T 4, CMP, TSH #### [facility] [address] [address] [address] Stan Aceves Anion gap [Moles/Vol] 12.1 mmol/L Normal [facility] Comment on above: Performed By: #### T 4, CMP, TSH #### [facility] [address] [address] [address] Stan Aceves AST [Catalytic activity/Vol] 14 U/L Critically low 15-37 [facility] Comment on above: Performed By: #### T 4, CMP, TSH #### [facility] [address] [address] [address] Stan Aceves Bilirubin [Mass/Vol] 0.3 mg/dL Normal 0.2-1.0 [facility] Comment on above: Performed By: #### T 4, CMP, TSH #### [facility] [address] [address] [address] Stan Aceves Calcium [Mass/Vol] 9.1 mg/dL Normal 8.5-10.1 [facility] Comment on above: Performed By: #### T 4, CMP, TSH #### [facility] [address] [address] [address] Stan Aceves Chloride [Moles/Vol] 103 mmol/L Normal 98-107 [facility] Comment on above: Performed By: #### T 4, CMP, TSH #### [facility] [address] [address] [address] Stan Aceves CO2 [Moles/Vol] 26.8 mmol/L Normal 21.0-32.0 [facility] Comment on above: Performed By: #### T 4, CMP, TSH #### [facility] [address] [address] [address] Stan Aceves Creatinine [Mass/Vol] 0.84 mg/dL Normal 0.55-1.02 [facility] Comment on above: Performed By: #### T 4, CMP, TSH #### [facility] [address] [address] [address] Stan Aceves EGFR-AF SWAZI >60 Normal >=60 [facility] Comment on above: Performed By: #### T 4, CMP, TSH #### [facility] [address] [place] [address] Dr. Stan Aceves EGFR-NON AF SWAZI >60 Normal >=60 [facility] Comment on above: Performed By: #### T 4, CMP, TSH #### [facility] [address] [address] [address] Stan Aceves Globulin (S) [Mass/Vol] 3.6 g/dL Normal [facility] Comment on above: Performed By: #### T 4, CMP, TSH #### [facility] [address] [place] [address] Dr. Stan Aceves Glucose [Mass/Vol] 84 mg/dL Normal 74-106 [facility] Comment on above: Performed By: #### T 4, CMP, TSH #### [facility] [address] [address] [address] Stan Aceves Potassium [Moles/Vol] 3.9 mmol/L Normal 3.5-5.[address] [facility] Comment on above: Performed By: #### T 4, CMP, TSH #### [facility] [address] [address] [address] Stan Aceves Protein [Mass/Vol] 7.1 g/dL Normal 6.4-8.2 [facility] Comment on above: Performed By: #### T 4, CMP, TSH #### [facility] [address] [address] [address] Stan Aceves Sodium [Moles/Vol] 138 mmol/L Normal 136-145 [facility] Comment on above: Performed By: #### T 4, CMP, TSH #### [facility] [address] [place] [address] Dr. Stan Aceves Urea nitrogen [Mass/Vol] 12.0 mg/dL Normal 7.0-18.0 [facility] Comment on above: Performed By: #### T 4, CMP, TSH #### [facility] [address] [place] [address] Dr. Stan Aceves Urea nitrogen/Creatinine [Mass ratio] 14.3 mg/mg Normal [facility] Comment on above: Performed By: #### T 4, CMP, TSH #### [facility] [address] [place] [address] Dr. Stan Aceves T4on 01-05-2023 T4 [Mass/Vol] 8.70 ug/dL Normal 4.80-13.[address] [facility] Comment on above: Performed By: #### T 4, CMP, TSH #### [facility] [address] [place] [address] Dr. Stan Aceves TSHon 01-05-2023 TSH 2.209 uIU/mL Normal 0.358-3.740 [facility] Comment on above: Performed By: #### T 4, CMP, TSH #### [facility] [address] [place] [address] Dr. Stan Aceves MRI BRAIN WO W [...] by: PATRICK PIERRE Date: 2022-04-27 10:16 Normal [facility] CREATININEon 04-08-2022 Creatinine [Mass/Vol] 0.91 mg/dL Normal 0.55-1.02 [facility] Comment on above: Performed By: #### C ONIEL #### [facility] [address] [address] [address] Stan Aceves EGFR-AF SWAZI >60 Normal >=60 [facility] Comment on above: Performed By: #### C ONIEL #### [facility] [address] [address] [address] Stan Aceves EGFR-NON AF SWAZI >60 Normal >=60 [facility] Comment on above: Performed By: #### C ONIEL #### [facility] [address] [place] [address] Dr. Stan Aceves CTA ABD/PELVIS WO W [...] by: PATRICK PIERRE Date: 2022-04-08 10:04 Normal [facility] Established Visit (Otolaryng ology)on 09-26-2018 Established [...] TAKE 1 TABLET BY MOUTH DAILY ATBEDTIME;Therapy: [id number] to Recorded Rx By: Zion; Dispense: 30 Days ; #:30; Refill: 0; ARIEL = N; Record; Last Updated By: Domenica Topete; 10/11/2017 1:16:16 PM Famotidine 20 MG Oral Tablet; TAKE 1 TABLET AT BEDTIME and TAKE 1 TABLET ASNEEDED during the day;Therapy: [id number] to Recorded Rx By: Zion; Dispense: 30 [...] 1:16:16 PM Lisinopril 20 MG Oral Tablet;Therapy: [id number] to Recorded Rx By: GIANNA ISABEL; Dispense: [...] Scheduling,Retrospect desmond By ProtocolAuthorization ; Requested for:15Sep2020; Perform:[facility]; Due:[id number]; Last Updated By:Carole Lanier; 09/26/2018 3:48:32 PM;Ordered; For:Acoustic neuroma; Ordered By:Shane Wilkerson;Radiologist to Determine Optimal Study : YWhat are the patient's signs and symptoms? : s/p CPA lesion resection Signatures Electronically signed by : Shane Wilkerson MD; Sep 26 2018 4:29PM EST (Author) Normal [email or web address] Vital Signs Date Time Vital Sign Value Performing Clinician Layla story 09-20-2024 09:43-0500 Body height 160 cm Jhoana Castorenapatrick [employer] Work Phone: [facility] 09-20-2024 09:43-0500 Body mass index (BMI) [Ratio] 24.13 kg/m2 Jhoana Cardoso [employer] Work Phone: [facility] 09-20-2024 09:43-0500 Body temperature 96.69 [degF] Jhoana Cardoso [employer] Work Phone: [facility] 09-20-2024 09:43-0500 Body weight 61.78 kg Jhoana Cardoso [employer] Work Phone: [facility] 09-20-2024 09:43-0500 Diastolic blood pressure 74 mm[Hg] Jhoana Cardoso [employer] Work Phone: [facility] 09-20-2024 09:43-0500 Heart rate 85 /min Jhoana Cardoso [employer] Work Phone: [facility] 09-20-2024 09:43-0500 Respiratory rate 18 /min Jhoana Cardoso [employer] Work Phone: [facility] 09-20-2024 09:43-0500 SaO2% (BldA) [Mass fraction] 94 % Jhoana Cardoso [employer] Work Phone: [facility] 09-20-2024 09:43-0500 Systolic blood pressure 128 mm[Hg] Jhoana Cardoso [employer] Work Phone: 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 Start: 10-22-2024 End: 10-22-2024 Refill Jhoana Cardoso [employer] Work Phone: [facility] Comment on above: Gastro-esophageal re flux disease without esophagitis Start: 10-22-2024 End: 10-22-2024 Refill Jhoana Cardoso [employer] Work Phone: [facility] Comment on above: Depression, unspecif ied ([facility]) Start: 09-20-2024 End: 09-20-2024 Bamboo flowsheet Jhoana Cardoso [employer] Work Phone: [facility] Start: 09-20-2024 End: 09-20-2024 Bamboo flowsheet Jhoana Cardoso [employer] Work Phone: [facility] Start: 09-20-2024 End: 09-20-2024 Office outpatient visit 15 minutes Jhoana Martineztrick [employer] Work Phone: [facility] Comment on above: Primary hypertension ([facility]) (Primary Dx); Type 2 diabetes mellitus without complication, without long-term current use of insulin ([facility]); Other hyperlipidemia ([facility]); Asthma with COPD (chronic obstructive pulmonary disease) ([facility]); Non-recurrent acute serous otitis media of left ear Start: 09-20-2024 End: 09-20-2024 ambulatory JHOANA CARDOSO Not Available Start: 09-11-2024 End: 09-11-2024 Refill Jhoana Cardoso [employer] Work Phone: [facility] Comment on above: Type 2 diabetes shanthi itus without complications ([facility]) Hyperlipidemia, unsp ecified ([facility]) Other bursitis of el bow, left elbow Start: 09-03-2024 End: 09-03-2024 Refill Ailyn Eng [facility] Comment on above: Asthma with COPD (ch ronic obstructive pulmonary disease) ([facility]) Start: 08-27-2024 End: 08-27-2024 Refill Jhoana Cardoso [employer] Work Phone: [facility] Comment on above: Asthma with COPD (ch ronic obstructive pulmonary disease) ([facility]) Start: 08-01-2024 End: 08-02-2024 Refill Arturo Chanel MA [facility] Comment on above: Hyperlipidemia, unsp ecified ([facility]); Other bursitis of elbow, left elbow; Depression, unspecified ([facility]); Type 2 diabetes mellitus without complications ([facility]) Start: 07-25-2024 End: 07-26-2024 Refill Arturo Chanel MA [facility] Comment on above: Other bursitis of el bow, left elbow Start: 07-23-2024 End: 07-23-2024 Refill Jhoana Cardoso [employer] Work Phone: [facility] Comment on above: Type 2 diabetes shanthi itus without complications ([facility]); Hyperlipidemia, unspecified ([facility]) Start: 07-07-2024 End: 07-07-2024 Chart abstracting Jhoana Cardoso [employer] Work Phone: [facility] Comment on above: 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 (Primary Dx) Start: 06-21-2024 End: 06-21-2024 ambulatory JHOANA CARDOSO Not Available Start: 03-08-2024 End: 03-08-2024 ambulatory SHAIKH HERO Not Available Start: 03-01-2024 End: 03-01-2024 ambulatory ARIELLE HAM Not Available Start: 01-26-2024 End: 01-26-2024 ambulatory SHAIKH HERO Not Available Start: 12-15-2023 End: 12-16-2023 ambulatory Arielle Ham Facility:[facility] Start: 12-15-2023 End: 12-15-2023 Patient encounter procedure Arielle Ham [facility] Start: 11-30-2023 End: 12-01-2023 ambulatory Arielle Ham Facility:[facility] Start: 11-21-2023 End: 11-21-2023 ambulatory SHAIKH HERO Not Available Start: 10-28-2023 End: 11-10-2023 Pre-admission assessment Arielle Ham [facility] Start: 01-05-2023 End: 01-06-[address] GIANNA ISABEL Facility:[facility] Start: 04-26-2022 End: 04-27-[address] GIANNA ISABEL Facility:[facility] Start: 04-08-2022 End: 04-09-[address] GIANNA ISABEL Facility: Procedures Date Procedure Procedure Detail Performing Clinician Start: 09-20-2024 Hemoglobin glycosyla brendan a1c Jhoana Cardoso [employer] Work Phone: Start: 01-16-2024 Mammography Jhoana foster [employer] Work Phone: Plan of Treatment Date Care Activity Detail Author Start: 11-14-2025 Screening for malign ant neoplasm of colon [facility] Start: 05-13-2025 Influenza vaccination Influenza Vacc ine (#1) [facility] Comment on above: Postponed from 07/15 (Patient Refused) Start: 03-20-2025 Hemoglobin A1c measurement Diabetes: Hemoglobin A1C [facility] Start: 03-14-2025 Glaucoma screening Diabetes: R etinopathy Screening [facility] Start: 03-08-2025 Medicare Annual Wellness (AWV) Medicare Annual Wellness (AWV) [facility] Start: 01-31-2025 End: 01-31-2025 Patient encounter procedure 01/31/2025 11:00 AM EDT Office Visit TIA MIRANDA [address] [place] [phone] Tashia Polk PA [address] [place] [address] TIA MIRANDA Start: 01-15-2025 Screening for malign ant neoplasm of breast Mammogram [facility] Start: 01-11-2025 Urine screening for protein Diabetes: Urine Protein Screening [facility] Start: 12-20-2024 End: 12-20-2024 Patient encounter procedure 12/20/2024 10:00 AM EST Office Visit [facility] [address] [place] [id number] Jhoana Cardoso NP [address] [place] [address] [facility] Start: 11-27-2024 Pneumococcal Vaccine : 65+ Years (1 of 2 - PCV) Pneumococcal Vaccine: 65+ Years (1 of 2 - PCV) [facility] Comment on above: Postponed from 04/21 (Other Patient Reasons) Start: 10-10-2024 End: 10-10-2024 Patient encounter procedure 10/10/2024 9:20 AM EST Office Visit [facility] [address] [place] [address] Tashia Polk PA [address] [place] [address] [facility] [address] Start: 09-20-2024 End: 09-20-2024 [facility] Comment on above: Arrived Start: 07-18-2024 End: 07-18-2024 Patient encounter procedure [facility] [address] [address] Start: 07-15-2024 Influenza vaccination Influenza Vacc ine (#1) [facility] Start: 01-13-2024 Hemoglobin A1c measurement Diabetes: Hemoglobin A1C [facility] Start: 1961 Pneumococcal Vaccine : 65+ Years (1 of 2 - PCV) Pneumococcal Vaccine: 65+ Years (1 of 2 - PCV) [facility] Start: 1955 Screening for malign ant neoplasm of colon [facility] Immunizations Immunization Date Immunization Notes Care Provider Keo carlson 08-14-2023 Influenza, High-dose Seasonal, Quadrivalent, Preservative Free Jhoana Cardsoo [employer] Work Phone: [facility] 08-14-2023 influenza virus vaccine, unspecified formulation Jhoana Cardoso [employer] Work Phone: [facility] Payers Date Payer Category Payer Medicare (Managed Care) [employer] Member Subscriber Plan / Payer (Effective 2021-Present) Name: Isidoro Zuleyka Ramirez Relation to Subscriber: Self Name: Zuleyka Chaudhry Payer ID: Not on file Group ID: [id number] Type: Not on file Address: [address] [id number] 2021 Medicare [id number] 2016 Medicare [id number] 1959 Unknown [id number] 1953 Unknown [id number]. 2.593 1953 Unknown [id number] 2..[id number]. 2.593 1953 Unknown [id number] [id number]. 2.593 1953 Unknown [id number] [id number]. 2.727 1953 Unknown [id number] 2.16.840.1.948491.3.579. 2.727 1953 Unknown [id number] [id number]. 2.1259 1953 Unknown [id number] [id number]. 2.9 1953 Unknown [id number] [id number]. 2.9 1953 Unknown [id number] 2.16.840.1.132183.3.579. 2.9 1953 Unknown [id number] [id number]. 2.9 1953 Unknown [id number] [id number]. 2.1259 Social History Date Type Detail Facility Tobacco smoking status [facility] Start: 06-21-2024 End: 09-20-2024 Sex Assigned At Female [facility] Start: 06-21-2024 [facility] History of tobacco use Cigarette Smoker [facility] History of tobacco use Passive smoker [facility] Start: 06-21-2024 Tobacco use and exposure Smokeless tobacco non-user [facility] Start: 06-21-2024 End: 09-20-2024 Alcoholic beverage intake Lifetime non-drinker (finding) [facility] Start: 06-21-2024 End: 09-20-2024 History of Social function [facility] Start: 10-17-2023 Alcohol Comment Caffeine: 2-3 cups per day [facility] Start: 1955 Sex assigned at Not on file [facility] Medical Equipment Procedure Code Equipment Code Equipment Origin al Text Equipment Identifier Dates 1 each by In Vit ro route in the morning. [id number] Start: 11-21-2023 End: 11-20-2024 1 each in the morning. [id number] Start: 11-21-2023 End: 11-20-2024 Clinical Notes 09-11-2024 to 09-20-2024 Jhoana Cardoso, GREG - 09/20/2024 10:53 AM Renee Cardoso, GREG - 09/20/2024 10:52 AM Renee Cardoso NP - 09/20/2024 10:52 AM Renee Cardoso NP - 09/20/2024 10:27 AM EST Note Date & Type Note Facility 09-20-2024 History of Present illness Narrative Associated Problem(s): Type 2 diabetes mellitus without complication, without long-term current use of insulin ([facility]) Currently taking Metformin 500mg Most recent labs: hemoglobin A1C 6.0% Average FSBS range from BGs range between 120 and 130 Checks BG levels using: Standard glucometer. Recheck A1C in office today. No episode of hypoglycemia No medication adverse effects reported by the patient. Patient educated on lifestyle modifications, dietary restrictions, signs and symptoms of hypoglycemia/hyperglycemia and importance of eating regular consistent meals. Stressed upon importance of checking blood glucose at home and bring blood glucose log to appointments. All questions, concerns answered and addressed. Encouraged to call office if persistent hypoglycemia/hyperglycemia on home glucose monitoring noted. Associated Problem(s): Other hyperlipidemia ([facility]) Currently taking Atorvastatin 40mg Denies any myalgias. Continue current regimen. Associated Problem(s): Primary hypertension ([facility]) Currently taking Losartan-hydrochlorothiazide 50/12.5mg Checks BP at home; Bp log shows several low BP readings in the 90's systolic. Will decrease losartan hydrochlorothiazide today. Eliminate hydrochlorothiazide. Losartan 50mg only Given BP log, advised pt to record BP and bring log back with them to next visit. Associated Problem(s): Asthma with COPD (chronic obstructive pulmonary disease) ([facility]) Currently taking Trelegy Daily and Albuterol PRN No exacerbations recently Reports using rescue inhaler 3 times per month. Continue current regimen Images from the original note were not included. Subjective Patient ID: Zuleyka Chaudhry is a 69 y.o. female who presents for Follow-up. HPI HTN: Currently taking Losartan-hydrochlorothiazide 50/12.5mg Checks BP at home; Bp log shows several low BP readings in the 90's systolic. Will decrease losartan hydrochlorothiazide today. Eliminate hydrochlorothiazide. Losartan 50mg only Given BP log, advised pt to record BP and bring log back with them to next visit. HLD: Currently taking Atorvastatin 40mg Denies any myalgias. Continue current regimen. Component Ref Range & Units 2 mo ago (06/27/24) 2 mo ago (06/27/24) 6 mo ago (03/08/24) 6 mo ago (03/08/24) 8 mo ago (01/11/24) TRIGLYCERIDES <=150 mg/dL 55 17.1 Low R 134 Low R 16.9 Low R <13.00 Low R CHOLESTEROL <=200 mg/dL 133 0.6 High R 4.4 R 0.1 R HDL CHOLESTEROL 40 - 60 mg/dL 50 4.8 R 12.7 R 5.6 R Comment: > or =60 mg/dl - LOW CARDIOVASCULAR RISK <40 mg/dl - HIGH CARDIOVASCULAR RISK LDL CHOLESTEROL CALCULATED mg/dL 72.0 1.2 R 104 R 1.3 R Comment: <100 mg/dl OPTIMAL 100-129 mg/dl NEAR OR ABOVE OPTIMAL 130-159 mg/dl BORDERLINE HIGH 160-189 mg/dl HIGH >190 mg/dl VERY HIGH VLDL CHOLESTEROL mg/dL 11.0 0.7 R 0.6 R CHOL HDL RATIO 2.7 0.04 High R 0.01 R Comment: 3.3 - 4.4 LOW RISK 4.4 - 7.1 AVERAGE RISK 7.1 - 11.0 MODERATE RISK >11.0 HIGH RISK Resulting Agency [facility] DMII: Most recent labs: hemoglobin A1C 6.0% Average FSBS range from BGs range between 120 and 130 Checks BG levels using: No episode of hypoglycemia No medication adverse effects reported by the patient. Patient educated on lifestyle modifications, dietary restrictions, signs and symptoms of hypoglycemia/hyperglycemia and importance of eating regular consistent meals. Stressed upon importance of checking blood glucose at home and bring blood glucose log to appointments. All questions, concerns answered and addressed. Encouraged to call office if persistent hypoglycemia/hyperglycemia on home glucose monitoring noted. Education: Check blood sugars daily, notify if <70 or >200. Take medications (pills or insulin) as directed. Monitor for s/s of hypoglycemia (sweaty, dizziness, nausea, vomiting, or shakiness). Watch for increase in thirst, urination, or appetite. Inspect feet frequently monitoring for open wounds , and also recommend yearly eye exam. Pt should attempt to remain as physically active as chronic conditions allow, as well as trying to follow a diet low in carbohydrates, and simple sugars. Review of Systems Constitutional: Negative for activity change, appetite change, chills, diaphoresis, fatigue, fever and unexpected weight change. HENT: Positive for ear pain. Negative for congestion, rhinorrhea, sinus pressure, sinus pain, sneezing, sore throat, trouble swallowing and voice change. Eyes: Negative for visual disturbance. Respiratory: Negative for cough, chest tightness, shortness of breath and wheezing. Cardiovascular: Negative for chest pain, palpitations and leg swelling. Gastrointestinal: Negative for abdominal distention, abdominal pain, blood in stool, constipation, diarrhea and vomiting. Genitourinary: Negative for decreased urine volume, dysuria, flank pain, frequency, hematuria and urgency. Musculoskeletal: Negative for arthralgias, gait problem, joint swelling and myalgias. Skin: Negative for rash. Neurological: Negative for dizziness, tremors, syncope, weakness, light-headedness and headaches. Psychiatric/Behavioral: Negative for decreased concentration and suicidal ideas. The patient is not nervous/anxious. Hematological: Does not bruise/bleed easily. Endocrine: Negative for cold intolerance, heat intolerance, polydipsia, polyphagia and polyuria. Objective Physical Exam Vitals reviewed. Constitutional: Appearance: Normal appearance. HENT: Head: Normocephalic and atraumatic. Left Ear: Tympanic membrane is erythematous and bulging. Nose: Nose normal. Mouth/Throat: Mouth: Mucous membranes are moist. Pharynx: Oropharynx is clear. Eyes: Pupils: Pupils are equal, round, and reactive to light. Cardiovascular: Rate and Rhythm: Normal rate and regular rhythm. Pulses: Normal pulses. Heart sounds: Normal heart sounds. Pulmonary: Effort: Pulmonary effort is normal. Breath sounds: Normal breath sounds. Abdominal: General: Abdomen is flat. Bowel sounds are normal. Palpations: Abdomen is soft. Musculoskeletal: General: Normal range of motion. Cervical back: Normal range of motion. Skin: General: Skin is warm and dry. Capillary Refill: Capillary refill takes less than 2 seconds. Neurological: General: No focal deficit present. Mental Status: She is alert and oriented to person, place, and time. Psychiatric: Mood and Affect: Mood normal. Behavior: Behavior normal. Assessment/Plan Problem List Items Addressed This Visit Other hyperlipidemia ([facility]) Currently taking Atorvastatin 40mg Denies any myalgias. Continue current regimen. Type 2 diabetes mellitus without complication, without long-term current use of insulin ([facility]) Currently taking Metformin 500mg Most recent labs: hemoglobin A1C 6.0% Average FSBS range from BGs range between 120 and 130 Checks BG levels using: Standard glucometer. Recheck A1C in office today. No episode of hypoglycemia No medication adverse effects reported by the patient. Patient educated on lifestyle modifications, dietary restrictions, signs and symptoms of hypoglycemia/hyperglycemia and importance of eating regular consistent meals. Stressed upon importance of checking blood glucose at home and bring blood glucose log to appointments. All questions, concerns answered and addressed. Encouraged to call office if persistent hypoglycemia/hyperglycemia on home glucose monitoring noted. Relevant Orders POCT glycosylated hemoglobin (Hb A1C) docked device Asthma with COPD (chronic obstructive pulmonary disease) ([facility]) Currently taking Trelegy Daily and Albuterol PRN No exacerbations recently Reports using rescue inhaler 3 times per month. Continue current regimen Primary hypertension ([facility]) - Primary Currently taking Losartan-hydrochlorothiazide 50/12.5mg Checks BP at home; Bp log shows several low BP readings in the 90's systolic. Will decrease losartan hydrochlorothiazide today. Eliminate hydrochlorothiazide. Losartan 50mg only Given BP log, advised pt to record BP and bring log back with them to next visit. Relevant Medications losartan (Cozaar) 50 MG tablet Other Visit Diagnoses Non-recurrent acute serous otitis media of left ear Relevant Medications amoxicillin-clavulanate (Augmentin) 875-125 MG tablet documented in this encounter [facility] 09-20-2024 Instructions Jhoana Cardoso NP - 09/20/2024 10:00 AM EST Start and finish antibiotics as prescribed. Education: Check blood sugars daily, notify if <70 or >200. Take medications (pills or insulin) as directed. Monitor for s/s of hypoglycemia (sweaty, dizziness, nausea, vomiting, or shakiness). Watch for increase in thirst, urination, or appetite. Inspect feet frequently monitoring for open wounds , and also recommend yearly eye exam. Pt should attempt to remain as physically active as chronic conditions allow, as well as trying to follow a diet low in carbohydrates, and simple sugars. Call if you need anything! documented in this encounter [facility] 09-11-2024 Telephone encounter Note Pt requesting a refill on her mobic, ANETTE:06/21/2024 NOV:09/20/2024 [facility] 09-11-2024 Miscellaneous Notes Pt requesting a refill on her mobic, ANETTE:06/21/2024 NOV:09/20/2024 documented in this encounter [facility] Evaluation + Plan note No data available for this section [facility] Evaluation note Diagnosis 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 loss- Primary Iron deficiency anemia secondary to blood loss (chronic) Current smoker Other hyperlipidemia (CMS/HCC) Moderate persistent asthma without complication ([facility]) Type 2 diabetes mellitus without complication, without long-term current use of insulin ([facility]) Screening mammogram, encounter for Recurrent major depressive disorder, in full remission ([facility]) Asthma with COPD (chronic obstructive pulmonary disease) ([facility])- Primary 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) Type 2 diabetes mellitus without complication, without long-term current use of insulin (CMS/HCC) Primary hypertension (CMS/HCC) Unspecified essential hypertension Asthma with COPD (chronic obstructive pulmonary disease) (CMS/HCC)- Primary Primary hypertension (CMS/HCC) Unspecified essential hypertension Type 2 diabetes mellitus without complication, without long-term current use of insulin (CMS/HCC) Primary hypertension (CMS/HCC)- Primary Unspecified essential hypertension Asthma with COPD (chronic obstructive pulmonary disease) (CMS/HCC) 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) Other hyperlipidemia (CMS/HCC) Type 2 diabetes mellitus without complication, without long-term current use of insulin (CMS/HCC) Vitamin D deficiency Dermoid cyst of right ear Tobacco dependency Tobacco use disorder Asthma with COPD (chronic obstructive pulmonary disease) ([facility]/HCC) documented in this encounter [facility] HealthcareEvaluation note* Diagnosis 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 loss- Primary Iron deficiency anemia secondary to blood loss (chronic) Current smoker Other hyperlipidemia (CMS/HCC) Moderate persistent asthma without complication ([facility]) Type 2 diabetes mellitus without complication, without long-term current use of insulin ([facility]) Screening mammogram, encounter for Recurrent major depressive disorder, in full remission ([facility]) Asthma with COPD (chronic obstructive pulmonary disease) ([facility]/HCC)- Primary 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) Type 2 diabetes mellitus without complication, without long-term current use of insulin (CMS/HCC) Primary hypertension (CMS/HCC) Unspecified essential hypertension Asthma with COPD (chronic obstructive pulmonary disease) (CMS/HCC)- Primary Primary hypertension (CMS/HCC) Unspecified essential hypertension Type 2 diabetes mellitus without complication, without long-term current use of insulin (CMS/HCC) Primary hypertension (CMS/HCC)- Primary Unspecified essential hypertension Asthma with COPD (chronic obstructive pulmonary disease) (CMS/HCC) 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) Other hyperlipidemia (CMS/HCC) Type 2 diabetes mellitus without complication, without long-term current use of insulin ([facility]/HCC) Vitamin D deficiency Dermoid cyst of right ear Tobacco dependency Tobacco use disorder Type 2 diabetes mellitus without complications ([facility]/HCC) documented in this encounter [facility] HealthcareEvaluation note* Diagnosis 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 loss- Primary Iron deficiency anemia secondary to blood loss (chronic) Current smoker Other hyperlipidemia (CMS/HCC) Moderate persistent asthma without complication ([facility]/HCC) Type 2 diabetes mellitus without complication, without long-term current use of insulin ([facility]) Screening mammogram, encounter for Recurrent major depressive disorder, in full remission ([facility]/HCC) Asthma with COPD (chronic obstructive pulmonary disease) ([facility])- Primary 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) Type 2 diabetes mellitus without complication, without long-term current use of insulin ([facility]/HCC) Primary hypertension ([facility]) Unspecified essential hypertension Asthma with COPD (chronic obstructive pulmonary disease) ([facility])- Primary Primary hypertension ([facility]) Unspecified essential hypertension Type 2 diabetes mellitus without complication, without long-term current use of insulin ([facility]) Primary hypertension ([facility])- Primary Unspecified essential hypertension Asthma with COPD (chronic obstructive pulmonary disease) ([facility]) 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) Other hyperlipidemia ([facility]) Type 2 diabetes mellitus without complication, without long-term current use of insulin ([facility]) Vitamin D deficiency Dermoid cyst of right ear Tobacco dependency Tobacco use disorder Hyperlipidemia, unspecified ([facility]) documented in this encounter [facility] HealthcareEvaluation note* Diagnosis 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 loss- Primary Iron deficiency anemia secondary to blood loss (chronic) Current smoker Other hyperlipidemia ([facility]/HCC) Moderate persistent asthma without complication ([facility]) Type 2 diabetes mellitus without complication, without long-term current use of insulin ([facility]) Screening mammogram, encounter for Recurrent major depressive disorder, in full remission ([facility]) Asthma with COPD (chronic obstructive pulmonary disease) ([facility])- Primary 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) Type 2 diabetes mellitus without complication, without long-term current use of insulin ([facility]) Primary hypertension ([facility]/HCC) Unspecified essential hypertension Asthma with COPD (chronic obstructive pulmonary disease) ([facility])- Primary Primary hypertension ([facility]/HCC) Unspecified essential hypertension Type 2 diabetes mellitus without complication, without long-term current use of insulin ([facility]/HCC) Primary hypertension ([facility])- Primary Unspecified essential hypertension Asthma with COPD (chronic obstructive pulmonary disease) ([facility]/HCC) 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) Other hyperlipidemia (CMS/HCC) Type 2 diabetes mellitus without complication, without long-term current use of insulin ([facility]) Vitamin D deficiency Dermoid cyst of right ear Tobacco dependency Tobacco use disorder Other bursitis of elbow, left elbow documented in this encounter [facility] HealthcareEvaluation note* Diagnosis 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 loss- Primary Iron deficiency anemia secondary to blood loss (chronic) Current smoker Other hyperlipidemia (CMS/HCC) Moderate persistent asthma without complication ([facility]/HCC) Type 2 diabetes mellitus without complication, without long-term current use of insulin ([facility]) Screening mammogram, encounter for Recurrent major depressive disorder, in full remission ([facility]) Asthma with COPD (chronic obstructive pulmonary disease) ([facility])- Primary 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) Type 2 diabetes mellitus without complication, without long-term current use of insulin ([facility]) Primary hypertension ([facility]) Unspecified essential hypertension Asthma with COPD (chronic obstructive pulmonary disease) ([facility])- Primary Primary hypertension ([facility]) Unspecified essential hypertension Type 2 diabetes mellitus without complication, without long-term current use of insulin ([facility]/HCC) Primary hypertension ([facility]/HCC)- Primary Unspecified essential hypertension Asthma with COPD (chronic obstructive pulmonary disease) ([facility]/HCC) 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) Other hyperlipidemia (CMS/HCC) Type 2 diabetes mellitus without complication, without long-term current use of insulin ([facility]) Vitamin D deficiency Dermoid cyst of right ear Tobacco dependency Tobacco use disorder Primary hypertension ([facility])- Primary Unspecified essential hypertension Type 2 diabetes mellitus without complication, without long-term current use of insulin ([facility]/HCC) Other hyperlipidemia ([facility]/HCC) Asthma with COPD (chronic obstructive pulmonary disease) ([facility]) Non-recurrent acute serous otitis media of left ear documented in this encounter [facility] HealthcareEvaluation note* Diagnosis Other bursitis of elbow, left elbow documented in this encounter [facility] HealthcareEvaluation note* Diagnosis 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 loss- Primary Iron deficiency anemia secondary to blood loss (chronic) Current smoker Other hyperlipidemia (CMS/HCC) Moderate persistent asthma without complication ([facility]/HCC) Type 2 diabetes mellitus without complication, without long-term current use of insulin ([facility]) Screening mammogram, encounter for Recurrent major depressive disorder, in full remission ([facility]) Asthma with COPD (chronic obstructive pulmonary disease) ([facility])- Primary 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) Type 2 diabetes mellitus without complication, without long-term current use of insulin ([facility]/HCC) Primary hypertension ([facility]) Unspecified essential hypertension Asthma with COPD (chronic obstructive pulmonary disease) ([facility])- Primary Primary hypertension ([facility]) Unspecified essential hypertension Type 2 diabetes mellitus without complication, without long-term current use of insulin ([facility]/HCC) Primary hypertension ([facility])- Primary Unspecified essential hypertension Asthma with COPD (chronic obstructive pulmonary disease) ([facility]) 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) Other hyperlipidemia ([facility]) Type 2 diabetes mellitus without complication, without long-term current use of insulin ([facility]) Vitamin D deficiency Dermoid cyst of right ear Tobacco dependency Tobacco use disorder Primary hypertension ([facility])- Primary Unspecified essential hypertension Type 2 diabetes mellitus without complication, without long-term current use of insulin ([facility]) Other hyperlipidemia ([facility]) Asthma with COPD (chronic obstructive pulmonary disease) ([facility]) Non-recurrent acute serous otitis media of left ear Gastro-esophageal reflux disease without esophagitis documented in this encounter [facility] HealthcareEvaluation note* Diagnosis 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 loss- Primary Iron deficiency anemia secondary to blood loss (chronic) Current smoker Other hyperlipidemia ([facility]) Moderate persistent asthma without complication ([facility]) Type 2 diabetes mellitus without complication, without long-term current use of insulin ([facility]) Screening mammogram, encounter for Recurrent major depressive disorder, in full remission ([facility]) Asthma with COPD (chronic obstructive pulmonary disease) ([facility])- Primary 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) Type 2 diabetes mellitus without complication, without long-term current use of insulin ([facility]/HCC) Primary hypertension ([facility]) Unspecified essential hypertension Asthma with COPD (chronic obstructive pulmonary disease) ([facility])- Primary Primary hypertension ([facility]) Unspecified essential hypertension Type 2 diabetes mellitus without complication, without long-term current use of insulin ([facility]/HCC) Primary hypertension ([facility]/HCC)- Primary Unspecified essential hypertension Asthma with COPD (chronic obstructive pulmonary disease) ([facility]/HCC) 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) Other hyperlipidemia ([facility]/HCC) Type 2 diabetes mellitus without complication, without long-term current use of insulin ([facility]/HCC) Vitamin D deficiency Dermoid cyst of right ear Tobacco dependency Tobacco use disorder Primary hypertension ([facility]/HCC)- Primary Unspecified essential hypertension Type 2 diabetes mellitus without complication, without long-term current use of insulin ([facility]/HCC) Other hyperlipidemia ([facility]/HCC) Asthma with COPD (chronic obstructive pulmonary disease) ([facility]) Non-recurrent acute serous otitis media of left ear Depression, unspecified ([facility]) documented in this encounter [facility]Evaluation [facility]* Diagnosis 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 loss- Primary Iron deficiency anemia secondary to blood loss (chronic) documented in this encounter [facility]* Diagnosis 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 loss- Primary Iron deficiency anemia secondary to blood loss (chronic) documented in this encounter [facility]* Diagnosis Type 2 diabetes mellitus without complications ([facility]) Hyperlipidemia, unspecified ([facility]/HCC) documented in this encounter [facility]* Diagnosis Hyperlipidemia, unspecified ([facility]) Other bursitis of elbow, left elbow Depression, unspecified ([facility]) Type 2 diabetes mellitus without complications ([facility]) documented in this encounter [facility]* Diagnosis 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 loss- Primary Iron deficiency anemia secondary to blood loss (chronic) Current smoker Other hyperlipidemia ([facility]/HCC) Moderate persistent asthma without complication ([facility]/HCC) Type 2 diabetes mellitus without complication, without long-term current use of insulin ([facility]) Screening mammogram, encounter for Recurrent major depressive disorder, in full remission ([facility]) Asthma with COPD (chronic obstructive pulmonary disease) ([facility])- Primary 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) Type 2 diabetes mellitus without complication, without long-term current use of insulin ([facility]/HCC) Primary hypertension ([facility]/HCC) Unspecified essential hypertension Asthma with COPD (chronic obstructive pulmonary disease) ([facility])- Primary Primary hypertension ([facility]/HCC) Unspecified essential hypertension Type 2 diabetes mellitus without complication, without long-term current use of insulin (CMS/HCC) Primary hypertension (CMS/HCC)- Primary Unspecified essential hypertension Asthma with COPD (chronic obstructive pulmonary disease) (CMS/HCC) 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) Other hyperlipidemia (CMS/HCC) Type 2 diabetes mellitus without complication, without long-term current use of insulin (CMS/HCC) Vitamin D deficiency Dermoid cyst of right ear Tobacco dependency Tobacco use disorder Primary hypertension (CMS/HCC)- Primary Unspecified essential hypertension Type 2 diabetes mellitus without complication, without long-term current use of insulin (CMS/HCC) Other hyperlipidemia (CMS/HCC) Asthma with COPD (chronic obstructive pulmonary disease) ([facility]) Non-recurrent acute serous otitis media of left ear 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) documented in this encounter [facility] HealthcareEvaluation note* Diagnosis 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 loss- Primary Iron deficiency anemia secondary to blood loss (chronic) Current smoker Other hyperlipidemia (CMS/HCC) Moderate persistent asthma without complication ([facility]) Type 2 diabetes mellitus without complication, without long-term current use of insulin ([facility]/HCC) Screening mammogram, encounter for Recurrent major depressive disorder, in full remission ([facility]) Asthma with COPD (chronic obstructive pulmonary disease) ([facility]/HCC)- Primary 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) Type 2 diabetes mellitus without complication, without long-term current use of insulin ([facility]/HCC) Primary hypertension (CMS/HCC) Unspecified essential hypertension Asthma with COPD (chronic obstructive pulmonary disease) ([facility]/HCC)- Primary Primary hypertension (CMS/HCC) Unspecified essential hypertension Type 2 diabetes mellitus without complication, without long-term current use of insulin (CMS/HCC) Primary hypertension (CMS/HCC)- Primary Unspecified essential hypertension Asthma with COPD (chronic obstructive pulmonary disease) ([facility]/HCC) 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) Other hyperlipidemia (CMS/HCC) Type 2 diabetes mellitus without complication, without long-term current use of insulin ([facility]/HCC) Vitamin D deficiency Dermoid cyst of right ear Tobacco dependency Tobacco use disorder Primary hypertension (CMS/HCC)- Primary Unspecified essential hypertension Type 2 diabetes mellitus without complication, without long-term current use of insulin (CMS/HCC) Other hyperlipidemia ([facility]/HCC) Asthma with COPD (chronic obstructive pulmonary disease) ([facility]) Non-recurrent acute serous otitis media of left ear Asthma with COPD (chronic obstructive pulmonary disease) ([facility]/HCC) documented in this encounter [facility] HealthcareEvaluation note* Diagnosis 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 loss- Primary Iron deficiency anemia secondary to blood loss (chronic) Current smoker Other hyperlipidemia ([facility]/HCC) Moderate persistent asthma without complication ([facility]) Type 2 diabetes mellitus without complication, without long-term current use of insulin ([facility]) Screening mammogram, encounter for Recurrent major depressive disorder, in full remission ([facility]) Asthma with COPD (chronic obstructive pulmonary disease) ([facility])- Primary 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) Type 2 diabetes mellitus without complication, without long-term current use of insulin ([facility]) Primary hypertension ([facility]) Unspecified essential hypertension Asthma with COPD (chronic obstructive pulmonary disease) ([facility])- Primary Primary hypertension ([facility]) Unspecified essential hypertension Type 2 diabetes mellitus without complication, without long-term current use of insulin ([facility]) Primary hypertension ([facility])- Primary Unspecified essential hypertension Asthma with COPD (chronic obstructive pulmonary disease) ([facility]) 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) Other hyperlipidemia ([facility]) Type 2 diabetes mellitus without complication, without long-term current use of insulin ([facility]) Vitamin D deficiency Dermoid cyst of right ear Tobacco dependency Tobacco use disorder Primary hypertension ([facility])- Primary Unspecified essential hypertension Type 2 diabetes mellitus without complication, without long-term current use of insulin ([facility]) Other hyperlipidemia ([facility]) Asthma with COPD (chronic obstructive pulmonary disease) ([facility]) Non-recurrent acute serous otitis media of left ear 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) documented in this encounter [facility] Discharge instructions No data available for this section [facility] data available for this section [facility] ([facility]ative[facility] Consultation (Routine) - Pending Review Specialty Diagnoses / Procedures Referred By Marilia underwood Referred To Contact Gastroenterology Diagnoses 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 loss Procedures GA OFFICE/OUTPATIENT NEW HIGH MDM 60 MINUTES Jhoana Cardoso NP [address] [place] [address] Referral ID Status Reason Start Date Expiration Date Visits Requested Visits Authorized [id number] Pending Review Specialty Services Required 07/07/2024 01/03/2025 1 1 [facility] Summary Purpose Family History No Family History [...] section and content) DATE CREATED AUTHOR 10/22/2018 [facility] DATE CREATED AUTHOR AUTHOR'S ORGANIZ ATION 01/09/2023 [facility] DATE CREATED AUTHOR AUTHOR'S ORGANIZ ATION 12/17/2023 [facility] DATE CREATED AUTHOR AUTHOR'S ORGANIZ ATION 09/22/2024 [facility] Specialists EPIC Patient Care team informatio n (unrecognized section and content) Physical Science Aide Relationship Specialty Start Date End Date Shaikh Sánchez MD [address] [place] [id number] PCP - Linda MORALES 11/14/23 Shaikh Sánchez MD [address] [place] [id number] PCP - General Internal Medicine 01/16/24 Arielle Ham NP [address] [place] [address] Nurse Practitioner Internal Medicine 01/16/24 Kirstin Carreon LPN Licensed Practical Nurse Family Medicine 07/27/24 Physical Science Aide Relationship Specialty Start Date End Date Shaikh Sánchez MD [address] [place] [address] PCP - Linda MORALES 11/14/23 Ian Rader MD [address] [place] [address] PCP - General Family Medicine 09/11/24 Arielle Ham [place] [employer] [address] [place] [address] Nurse Practitioner Internal Medicine 01/16/24 Kirstin Carreon LPN Licensed Practical Nurse Family Medicine 07/27/24 Jhoana Cardoso NP [address] [place] [address] Nurse Practitioner Family Medicine 09/11/24 Physical Science Aide Relationship Specialty Start Date End Date Shaikh Sánchez MD [address] [place] [address] PCP - Linda MORALES 11/14/23 Ian Rader MD [address] [place] [address] PCP - General Family Medicine 09/11/24 Arielle Ham RIVER [employer] [address] [place] [address] Nurse Practitioner Internal Medicine 01/16/24 Kirstin Carreon LPN Licensed Practical Nurse Family Medicine 07/27/24 Jhoana Cardoso NP [address] [place] [address] Nurse Practitioner Family Medicine 09/11/24 Physical Science Aide Relationship Specialty Start Date End Date Shaikh Sánchez MD [address] [place] [phone] PCP - Linda MORALES 11/14/23 Ian Rader MD [address] [place] [phone] PCP - General Family Medicine 09/11/24 Arielle Ham NP [address] [place] [address] Nurse Practitioner Internal Medicine 01/16/24 Kirstin Carreon LPN Licensed Practical Nurse Family Medicine 07/27/24 Jhoana Cardoso NP [address] [place] [address] Nurse Practitioner Family Medicine 09/11/24 Physical Science Aide Relationship Specialty Start Date End Date Shaikh Sánchez MD [address] [place] [phone] PCP - Linda MORALES 11/14/23 Ian Rader MD [address] [place] [phone] PCP - General Family Medicine 09/11/24 Arielle Ham NP [address] [place], [place] [id number] Nurse Practitioner Internal Medicine 01/16/24 Kirstin Carreon LPN Licensed Practical Nurse Family Medicine 07/27/24 Jhoana Cardoso NP [address] [place] [address] Nurse Practitioner Family Medicine 09/11/24 Physical Science Aide Relationship Specialty Start Date End Date Shaikh Sánchez MD [address] [place] [phone] PCP - Linda MORALES 11/14/23 Shaikh Sánchez MD [address] [place] [phone] PCP - General Internal Medicine 01/16/24 Arielle Ham, RIVER [employer] [address] [place] [address] Nurse Practitioner Internal Medicine 01/16/24 Gustavo Romero LPN Licensed Practical Nurse Family Medicine 07/04/24 Physical Science Aide Relationship Specialty Start Date End Date Shaikh Sánchez MD [address] [place] [phone] PCP - Linda MORALES 11/14/23 Ian Rader MD [address] [place] [phone] PCP - General Family Medicine 09/11/24 Arielle Ham NP [address] [place] [address] Nurse Practitioner Internal Medicine 01/16/24 Jhoana Cardoso NP [address] [place] [address] Nurse Practitioner Family Medicine 09/11/24 Arturo Chanel MA Family Medicine 09/24/24 Physical Science Aide Relationship Specialty Start Date End Date Shaikh Sánchez MD [address] [place] [phone] PCP - Linda MORALES 11/14/23 Shaikh Sánchez MD [address] [place] [phone] PCP - General Internal Medicine 01/16/24 Arielle Ham NP [address] [place] [address] Nurse Practitioner Internal Medicine 01/16/24 Gustavo Romero LPN Licensed Practical Nurse Family Medicine 07/04/24 Physical Science Aide Relationship Specialty Start Date End Date Shaikh Sánchez MD [address] [place] [phone] PCP - Linda MORALES 11/14/23 Shaikh Sánchez MD [address] [place] [phone] PCP - General Internal Medicine 01/16/24 Arielle Ham NP [address] [place] [address] Nurse Practitioner Internal Medicine 01/16/24 Gustavo Romero LPN Licensed Practical Nurse Family Medicine 07/04/24 Physical Science Aide Relationship Specialty Start Date End Date Shaikh Sánchez MD [address] [place] [phone] PCP - Linda MORALES 11/14/23 Shaikh Sánchez MD [address] [place] [phone] PCP - General Internal Medicine 01/16/24 Arielle Ham NP [address] [place], [place] [phone] Nurse Practitioner Internal Medicine 01/16/24 Gustavo Romero LPN Licensed Practical Nurse Family Medicine 07/04/24 Physical Science Aide Relationship Specialty Start Date End Date Shaikh Sánchez MD [address] [place] [phone] PCP - Linda MORALES 11/14/23 Shaikh Sánchez MD [address] [place] [phone] PCP - General Internal Medicine 01/16/24 Arielle Ham RIVER [employer] [address] [place], [place] [phone] Nurse Practitioner Internal Medicine 01/16/24 Kirstin Carreon LPN Licensed Practical Nurse Family Medicine 07/27/24 Physical Science Aide Relationship Specialty Start Date End Date Shaikh Sánchez MD [address] [place] [phone] PCP - Linda [place] 11/14/23 Ian Rader MD [address] [place] [address] PCP - General Family Medicine 09/11/24 Arielle Ham NP [address] [place] [address] Nurse Practitioner Internal Medicine 01/16/24 Jhoana Cardoso NP [address] [place] [address] Nurse Practitioner Family Medicine 09/11/24 Arturo Chanel MA Family Medicine 09/24/24 Physical Science Aide Relationship Specialty Start Date End Date Shaikh Sánchez MD [address] [place] [phone] PCP - Linda MORALES 11/14/23 Ian Rader MD [address] [place] [phone] PCP - General Family Medicine 09/11/24 Arielle Ham RIVER [employer] [address] [place] [address] Nurse Practitioner Internal Medicine 01/16/24 Jhoana Cardoso NP [address] [place] [address] Nurse Practitioner Family Medicine 09/11/24 Arturo Chanel MA Family Medicine 09/24/24 Reason for Visit (unrecogniz ed section and content) Reason Onset Date Comments Med Refill 08/27/2024 Reason Onset Date Comments Med Refill 09/03/2024 Reason Onset Date Comments Med Refill 09/11/2024 Reason Comments Follow-up Reason Onset Date Comments Med Refill 07/25/2024 Reason Onset Date Comments Med Refill 10/22/2024 Reason Comments Med Refill Reason Onset Date Comments Med Refill 07/23/2024 Reason Onset Date Comments Med Refill 08/01/2024 Reason Onset Date Comments Med Refill 11/12/2024 Reason Onset Date Comments Med Refill 11/27/2024 Reason Onset Date Comments Med Refill 12/06/2024 FOR RECORDS PERTAINING TO PATIENTS WHO ARE [...] BE BASED ON THE PRIMARY CLINICAL RECORDS. [employer] [facility]. provides no warranty or guarantee of the accuracy or completeness of information in this document.
--- NOTE | 2024-12-09 16:03 | CT_ITS ---
The [address] [address] Patient Name: JULIAN MONTAÑO MRN: [id number] date: 1955 Sex: F Assigned Patient Location: ER Current Patient Location: ER Accession/Order Number: [id number] Exam Date: 12/09/2024 16:40 Report Date: 12/09/2024 17:07 At the request of: ALY SHRESTHA Procedure: CT cervical spine wo con CT head/brain wo con, CT cervical spine wo con, 12/09/2024 4:40 PM EST INDICATION: trauma and fall COMPARISON: Prior MRI of the brain dated 04/26/2022 TECHNIQUE: Axial images of 3 mm are obtained from the base of the skull to vertex completed with Axial images of 2 mm are obtained from base of skull to T2 without contrast. Dose reduction techniques were achieved by using automated exposure control and/or adjustment of mA and/or kV according to patient size and/or use of iterative reconstruction technique. FINDINGS: There is status post right canal wall up mastoidectomy with stable air-fluid level posterior to the surgical bed. The cerebral and cerebellar sulci as well as ventricular system are appropriate for age. There is no intracranial mass, mass effect, midline shift, intra or extra-axial fluid collection. No acute territorial infarction or hemorrhage is noted. The visualized portions of orbits, mastoid air cells as well as paranasal sinuses are unremarkable. There is no suspicious osteolytic or osteoblastic lesion. No acute fracture or dislocation is noted. Multilevel degenerative changes of cervical spine are noted. There is diffuse demineralization of bone. Partially visualized endotracheal tube is noted. CT/CT cervical spine wo con IMPRESSION: No acute intracranial process is identified. No acute fracture. Electronically authenticated by: TORRI LAND Date: 12/09/2024 17:07
[2024-12-09 16:12] LABS: Hematocrit 33.1 % (36.0-48.0); Hemoglobin 10.6 g/dL (12.0-16.0); Mean Corpuscular Hemoglobin 28.7 pg (26.7-34.0); Mean Corpuscular Volume 89.7 fL (81.0-99.0); Mean Platelet Volume 8.9 fL (9.5-13.5); Platelet Count 225 10^3/uL (150-450); Red Blood Count 3.69 10^6/uL (4.20-5.40); Red Cell Distribution Width 14.7 % (11.0-15.0); White Blood Count 14.3 10^3/uL (4.0-11.0)
[2024-12-09 16:20] LABS: Glucometer 210 mg/dL (74-106)
[2024-12-09 16:24] LABS: Ethanol <3 mg/dL
[2024-12-09] MEDS: METHYLPREDNISOLONE SOD SUCC PF 125 MG/2 ML VIAL IVP (16:24)
[2024-12-09 16:26] LABS: INR 1.09; Prothrombin Time 11.5 sec (9.0-11.6)
[2024-12-09 16:28] LABS: Base Excess ABG -3.1 mmol/L (-2.0-2.0); HCO3 ABG 25.5 mmol/L (22.0-26.0)
[2024-12-09 16:29] LABS: Allen Test POSITIVE (POSITIVE); Fractionated Inspired Oxygen 100 %; Minute Volume 5.42; O2 Mode VENT; Oxygen Saturation ABG 97.4 %; Puncture Site R RADIAL; Rate 16; Tidal Volume 350; Vent Mode AV/VC
[2024-12-09 16:30] LABS: Pos End Expiratory Pressure 5
[2024-12-09 16:31] LABS: ABG PCO2 71.5 mmHg (35.0-45.0); pH ABG 7.161 (7.350-7.450)
[2024-12-09 16:31] LABS: Lactate/Lactic Acid 1.8 mmol/L (0.4-2.0)
[2024-12-09 16:32] LABS: Alanine Aminotransferase 96 U/L (14-59); Albumin Level 2.9 g/dL (3.4-5.0); Alkaline Phosphatase 94 U/L (46-116); Anion Gap 10.3; Aspartate Amino Transferase 74 U/L (15-37); BUN Creatinine Ratio 18.4; Bilirubin Total 0.4 mg/dL (0.2-1.0); Calcium 7.2 mg/dL (8.5-10.1); Carbon Dioxide 25.8 mmol/L (21.0-32.0); Chloride 95 mmol/L (98-107); Estimated GFR (African America >60 (>=60 mL/min/1.73m^2); Estimated GFR (Non-African Ame 56 (>=60 mL/min/1.73m^2); Glucose 221 mg/dL (74-106); Magnesium 1.3 mg/dL (1.8-2.4); Potassium 3.1 mmol/L (3.5-5.1); Sodium 128 mmol/L (136-145); Total Protein 5.9 g/dL (6.4-8.2)
[2024-12-09 16:34] LABS: Band Neutrophils Absolute 1.3 10^3/uL (0.0-0.3); Lymphocytes Absolute Manual 0.28 10^3/uL (1.20-3.80); Monocytes Absolute Manual 0.57 10^3/uL (0.30-0.80); Segmented Neut Absolute Manual 12.15 10^3/uL (1.4-6.5)
[2024-12-09 16:36] LABS: Troponin I High Sensitivity 305.1 pg/mL (4.0-51.3)
[2024-12-09 16:40] LABS: Bilirubin Urine NEGATIVE (NEGATIVE); Blood Urine MODERATE (NEGATIVE); Clarity Urine CLEAR (CLEAR); Color Urine LT. YELLOW (YELLOW); Glucose Urine UA 500 mg/dL (NEGATIVE); Ketones Urine NEGATIVE (NEGATIVE); Leukocyte Esterase Urine NEGATIVE (NEGATIVE); Nitrite Urine NEGATIVE (NEGATIVE); Protein Urine 30 mg/dL (NEG/TRACE); pH Urine 5.5 (5.0-9.0)
[2024-12-09 16:46] LABS: Urine Microscopic Indicated YES
[2024-12-09 16:50] LABS: Bacteria Urine TRACE #/HPF (NONE SEEN); Cast Seen? NONE SEEN #/LPF (NONE SEEN); Crystals Seen? None Seen #/HPF (None Seen); Mucus Urine NONE SEEN (NONE SEEN); RBC Urine 0-2 #/HPF (0-2); Squamous Epithelial Cell Urine RARE #/LPF (NONE/RARE); Urine Culture Indicated NO; WBC Urine 0-2 #/HPF (NONE SEEN)
[2024-12-09 16:51] LABS: Amphetamine Screen Urine NEGATIVE (NEGATIVE); Benzodiazepines Screen Urine NEGATIVE (NEGATIVE); Cannabinoid Screen Urine NEGATIVE (NEGATIVE); Cocaine Screen Urine NEGATIVE (NEGATIVE); Methamphetamines Screen Urine NEGATIVE (NEGATIVE); Opiate Screen Urine NEGATIVE (NEGATIVE); Phencyclidine Screen Urine NEGATIVE (NEGATIVE)
[2024-12-09 16:52] LABS: Barbiturates Screen Urine NEGATIVE (NEGATIVE); Buprenorphine Screen Urine NEGATIVE (NEGATIVE); Methadone Screen Urine NEGATIVE (NEGATIVE); Oxycodone Screen Urine NEGATIVE (NEGATIVE); Tricyclic Antidepressant Urine NEGATIVE (NEGATIVE)
--- NOTE | 2024-12-09 17:15 | RESP.RT ---
Titrated down from 100%
--- NOTE | 2024-12-09 17:18 | RESP.RT ---
Titrated down from 100%
[2024-12-09] MEDS: 0.9 % SODIUM CHLORIDE 1,000 ML 1000 ML IV (17:23)
[2024-12-09] MEDS: LEVOFLOXACIN IN DEXTROSE 5 % 750 MG/150 ML PREMIX 100 MG IV (17:26)
[2024-12-09] MEDS: MAGNESIUM SULFATE IN WATER 2 GM/50 ML PREMIX IV (17:32)
[2024-12-09] MEDS: DEXMEDETOMIDINE HCL 200 MCG in 0.9 % SODIUM CHLORIDE 50 ML IV (18:01)
[2024-12-09 18:03] LABS: Troponin I High Sensitivity 727.2 pg/mL (4.0-51.3)
[2024-12-09 18:08] LABS: Influenza Virus A Antigen Positive; Influenza Virus B Antigen Negative; Internal Control Within Normal Limits; Respiratory Syncytial Virus Not Detected (NOT DETECTE)
[2024-12-09 18:09] LABS: Internal Control Within Normal Limits; SARS-CoV-2 Ag NEGATIVE (NEGATIVE)
[2024-12-09 18:10] LABS: Base Excess ABG -3.1 mmol/L (-2.0-2.0); HCO3 ABG 26.1 mmol/L (22.0-26.0)
[2024-12-09 18:11] LABS: Allen Test POSITIVE (POSITIVE); Fractionated Inspired Oxygen 70 %; Minute Volume 5.86; O2 Mode VENT; Oxygen Saturation ABG 96.4 %; Puncture Site R RADIAL; Rate 16; Tidal Volume 350; Vent Mode AV/VC
[2024-12-09 18:12] LABS: Pos End Expiratory Pressure 5; pH ABG 7.133 (7.350-7.450)
--- NOTE | 2024-12-09 18:43 | ED_ITS ---
HPI - SOB/Dyspnea General Chief Complaint: Shortness of Breath/Dyspnea Stated Complaint: CARDIC ARREST Time Seen by Provider: 12/09/24 15:59 Mode of arrival: ambulance History of Present Illness HPI Narrative: The patient is coming to the ER after she was intubated by the EMS, the patient was found unresponsive by her boyfriend who does not know how long she was down upon arrival the patient was breathing but agonal and she was not responding and she did had a pulse The family at the bedside mentioned that the patient has been complaining of shortness of breath for the last 2 days, no chest pain no nausea no vomiting no other concerns, Related Data Home Medications ?Medication ?Instructions ?Recorded ?Confirmed albuterol sulfate 90 mcg/actuation 2 puff inhalation Q4H PRN 12/09/24 12/09/24 aerosol inhaler shortness of breath or wheezing atorvastatin 40 mg tablet 40 mg PO DAILY 12/09/24 12/09/24 fluticasone fur. 200 mcg-umeclid 1 inh inhalation DAILY 12/09/24 12/09/24 62.5 mcg-vilant 25 mcg inhalat.powder (Trelegy Ellipta) losartan 50 mg tablet 50 mg PO DAILY 12/09/24 12/09/24 meloxicam 7.5 mg tablet 7.5 mg PO DAILY 12/09/24 12/09/24 metformin 500 mg tablet 500 mg PO DAILY 12/09/24 12/09/24 omeprazole 20 mg capsule,delayed 20 mg PO DAILY 12/09/24 12/09/24 release sertraline 50 mg tablet 50 mg PO DAILY 12/09/24 12/09/24 Allergies Allergy/AdvReac Type Severity Reaction Status Date / Time No Known Drug Allergies Allergy Verified 12/09/24 16:15 Exam Narrative Exam Narrative: Examination the patient showed that she is intubated with a 7.5 tube The patient air entry is adequate with the intubation She is not responding to painful stimuli upon arrival she was just sedated Lower extremity there is no edema Skin: Warm, dry, no pallor noted. No rash. Head: Normocephalic, atraumatic. Neck: Supple, non-tender. Eye: Pupils are equal, round and EOMI. No scleral icterus. Cardiovascular: Regular Rate and Rhythm without murmur, gallop or rub. Musculoskeletal: normal ROM, no calf or popliteal tenderness, no lower extremity edema/swelling GI: Abdomen is soft, non-distended. Normal bowel sounds. No masses appreciated. . Constitutional Vital Signs, click to edit/add: Last Vital Signs Temp 99.3 F 12/09/24 16:45 Pulse 114 H 12/09/24 18:33 Resp 25 H 12/09/24 18:33 BP 165/89 H 12/09/24 18:15 Pulse Ox 96 12/09/24 18:33 O2 Del Method Mechanical Ventilator 12/09/24 17:59 O2 Flow Rate 15 12/09/24 15:55 FiO2 50 12/09/24 18:33 Course Vital Signs Vital signs: Vital Signs Pulse Oximetry 100 12/09/24 15:55 Oxygen Delivery Method Ambu Bag 12/09/24 15:55 Oxygen Delivery Flow Rate 15 12/09/24 15:55 Temperature 99.3 F 12/09/24 16:45 Pulse Rate 114 H 12/09/24 18:33 Respiratory Rate 25 H 12/09/24 18:33 Blood Pressure 165/89 H 12/09/24 18:15 Pulse Oximetry 96 12/09/24 18:33 Oxygen Delivery Method Mechanical Ventilator 12/09/24 17:59 Oxygen Delivery Flow Rate 15 12/09/24 15:55 Fraction of Inspired Oxygen 50 12/09/24 18:33 MDM - SOB/Dyspnea MDM Narrative Medical decision making narrative: EKG upon arrival showing sinus rhythm with a heart rate of [address] elevation Chest x-ray showed adequate placement of the ET tube and there is no acute pathology in the chest Patient CBC shows leukocytosis of 14 Chemistry showing sodium was 128 and the troponin is 300 It was noted that the patient bicarb on the chemistry is normal but the ABG respiratory acidosis with a pH of 7.1 secondary to CO2 retention The patient continued at tidal volume 350 in addition to respiratory initially was 16 after obtaining the second ABGs and showing similar result to the first 1 the patient respiratory to be increased to 24 and her tidal volume be kept the same Patient was changed from Precedex to fentanyl and propofol as sedation The patient case was discussed with and [facility] and he accepted the patient awaiting bed assignment The patient also had a CT head as well as CT cervical spine showing no acute pathology Flu test is positive for flu A Patient was treated with methylprednisone and breathing treatment and magnesium replaced with 2 g IV The patient troponin initially was 300 elevated to 700 after 1 hour but the case was discussed with the cardiology service Dr. Fried and initially the plan is just to make sure that the patient respiratory failure will be managed at the main reason for the elevated troponin Lab Data Labs: Lab Results 12/09/24 12/09/24 12/09/24 Range/Units 16:01 16:10 16:18 WBC 14.3 H (4.0-11.0) 10^3/uL RBC 3.69 L (4.20-5.40) 10^6/uL Hgb 10.6 L (12.0-16.0) g/dL Hct 33.1 L (36.0-48.0) % MCV 89.7 (81.0-99.0) fL MCH 28.7 (26.7-34.0) pg MCHC 32.0 (29.9-35.2) g/dL RDW 14.7 (11.0-15.0) % Plt Count 225 (150-450) 10^3/uL MPV 8.9 L (9.5-13.5) fL Seg Neuts % (Manual) 85.0 H (43.0-75.0) Band Neutrophils % 9.0 H (0-5) % Lymphocytes % (Manual) 2.0 L (20.5-60.0) % Monocytes % (Manual) 4.0 (1.7-12.0) % Eosinophils % (Manual) 0.0 L (0.9-7.0) % Basophils % (Manual) 0.0 L (0.2-2.0) % Neutrophils # (Manual) 12.15 H (1.4-6.5) 10^3/uL Band Neutrophils # 1.3 H (0.0-0.3) 10^3/uL Lymphocytes # (Manual) 0.28 L (1.20-3.80) 10^3/uL Monocytes # (Manual) 0.57 (0.30-0.80) 10^3/uL Eosinophils # (Manual) 0.00 (0.00-0.70) 10^3/uL Basophils # (Manual) 0.00 (0.00-0.10) 10^3/uL PT 11.5 (9.0-11.6) sec INR 1.09 Puncture Site R radial ABG pH 7.161 L* (7.350-7.450) ABG pCO2 71.5 H* (35.0-45.0) mmHg ABG pO2 451.0 H (80.0-100.0) mmHg ABG HCO3 25.5 (22.0-26.0) mmol/L ABG O2 Saturation 97.4 % ABG Base Excess -3.1 L (-2.0-2.0) mmol/L Roland Test Positive (POSITIVE) Minute Volume 5.42 Vent Mode Av/vc FiO2 100 % Expiratory Pressure 5 Tidal Volume 350 Sodium 128 L (136-145) mmol/L Potassium 3.1 L (3.5-5.1) mmol/L Chloride 95 L (98-107) mmol/L Carbon Dioxide 25.8 (21.0-32.0) mmol/L Anion Gap 10.3 BUN 18.0 (7.0-18.0) mg/dL Creatinine 0.98 (0.55-1.02) mg/dL Est GFR ( Amer) >60 (>=60 mL/min/1.73m^2) Est GFR (Non-Af Amer) 56 L (>=60 mL/min/1.73m^2) BUN/Creatinine Ratio 18.4 Glucose 221 H (74-106) mg/dL Lactate 1.8 (0.4-2.0) mmol/L Calcium 7.2 L (8.5-10.1) mg/dL Magnesium 1.3 L (1.8-2.4) mg/dL Total Bilirubin 0.4 (0.2-1.0) mg/dL AST 74 H (15-37) U/L ALT 96 H (14-59) U/L Alkaline Phosphatase 94 (46-116) U/L Troponin I High Sens 305.1 H* (4.0-51.3) pg/mL Total Protein 5.9 L (6.4-8.2) g/dL Albumin 2.9 L (3.4-5.0) g/dL Globulin 3.0 g/dL Albumin/Globulin Ratio 1.0 Urine Color Lt. yellow (YELLOW) Urine Clarity Clear (CLEAR) Urine pH 5.5 (5.0-9.0) Ur Specific [place] 1.020 (1.005-1.025) Urine Protein 30 A (NEG/TRACE) mg/dL Urine Glucose (UA) 500 A (NEGATIVE) mg/dL Urine Ketones Negative (NEGATIVE) mg/dL Urine Occult Blood Moderate A (NEGATIVE) Urine Nitrite Negative (NEGATIVE) Urine Bilirubin Negative (NEGATIVE) Urine Urobilinogen 1.0 (0.2-1.0) EU/dL Ur Leukocyte Esterase Negative (NEGATIVE) Urine RBC 0-2 (0-2) #/HPF Urine WBC 0-2 A (NONE SEEN) #/HPF Ur Squamous Epith Cells Rare (NONE/RARE) #/LPF Urine Crystals None seen (None Seen) #/HPF Urine Bacteria Trace A (NONE SEEN) #/HPF Urine Casts None seen (NONE SEEN) #/LPF Urine Mucus None seen (NONE SEEN) Ur Culture Indicated? No Urine Opiates Screen Negative (NEGATIVE) Ur Buprenorphine Scrn Negative (NEGATIVE) Ur Oxycodone Screen Negative (NEGATIVE) Urine Methadone Screen Negative (NEGATIVE) Ur Barbiturates Screen Negative (NEGATIVE) U Tricyclic Antidepress Negative (NEGATIVE) Ur Phencyclidine Scrn Negative (NEGATIVE) Ur Amphetamines Screen Negative (NEGATIVE) U Methamphetamines Scrn Negative (NEGATIVE) U Benzodiazepines Scrn Negative (NEGATIVE) Urine Cocaine Screen Negative (NEGATIVE) U Cannabinoids Screen Negative (NEGATIVE) Ethanol Quant <3 mg/dL Influenza Type A Ag Influenza Type B Ag RSV Antigen (NOT DETECTE) SARS-CoV-2 Ag (CV2AG) (NEGATIVE) POC Glucose 210 H (74-106) mg/dL 12/09/24 12/09/24 12/09/24 Range/Units 17:35 17:45 17:58 WBC (4.0-11.0) 10^3/uL RBC (4.20-5.40) 10^6/uL Hgb (12.0-16.0) g/dL Hct (36.0-48.0) % MCV (81.0-99.0) fL MCH (26.7-34.0) pg MCHC (29.9-35.2) g/dL RDW (11.0-15.0) % Plt Count (150-450) 10^3/uL MPV (9.5-13.5) fL Seg Neuts % (Manual) (43.0-75.0) Band Neutrophils % (0-5) % Lymphocytes % (Manual) (20.5-60.0) % Monocytes % (Manual) (1.7-12.0) % Eosinophils % (Manual) (0.9-7.0) % Basophils % (Manual) (0.2-2.0) % Neutrophils # (Manual) (1.4-6.5) 10^3/uL Band Neutrophils # (0.0-0.3) 10^3/uL Lymphocytes # (Manual) (1.20-3.80) 10^3/uL Monocytes # (Manual) (0.30-0.80) 10^3/uL Eosinophils # (Manual) (0.00-0.70) 10^3/uL Basophils # (Manual) (0.00-0.10) 10^3/uL PT (9.0-11.6) sec INR Puncture Site R radial ABG pH 7.133 L* (7.350-7.450) ABG pCO2 78.0 H* (35.0-45.0) mmHg ABG pO2 192.0 H (80.0-100.0) mmHg ABG HCO3 26.1 H (22.0-26.0) mmol/L ABG O2 Saturation 96.4 % ABG Base Excess -3.1 L (-2.0-2.0) mmol/L Roland Test Positive (POSITIVE) Minute Volume 5.86 Vent Mode Av/vc FiO2 70 % Expiratory Pressure 5 Tidal Volume 350 Sodium (136-145) mmol/L Potassium (3.5-5.1) mmol/L Chloride (98-107) mmol/L Carbon Dioxide (21.0-32.0) mmol/L Anion Gap BUN (7.0-18.0) mg/dL Creatinine (0.55-1.02) mg/dL Est GFR ( Amer) (>=60 mL/min/1.73m^2) Est GFR (Non-Af Amer) (>=60 mL/min/1.73m^2) BUN/Creatinine Ratio Glucose (74-106) mg/dL Lactate (0.4-2.0) mmol/L Calcium (8.5-10.1) mg/dL Magnesium (1.8-2.4) mg/dL Total Bilirubin (0.2-1.0) mg/dL AST (15-37) U/L ALT (14-59) U/L Alkaline Phosphatase (46-116) U/L Troponin I High Sens 727.2 H* (4.0-51.3) pg/mL Total Protein (6.4-8.2) g/dL Albumin (3.4-5.0) g/dL Globulin g/dL Albumin/Globulin Ratio Urine Color (YELLOW) Urine Clarity (CLEAR) Urine pH (5.0-9.0) Ur Specific [place] (1.005-1.025) Urine Protein (NEG/TRACE) mg/dL Urine Glucose (UA) (NEGATIVE) mg/dL Urine Ketones (NEGATIVE) mg/dL Urine Occult Blood (NEGATIVE) Urine Nitrite (NEGATIVE) Urine Bilirubin (NEGATIVE) Urine Urobilinogen (0.2-1.0) EU/dL Ur Leukocyte Esterase (NEGATIVE) Urine RBC (0-2) #/HPF Urine WBC (NONE SEEN) #/HPF Ur Squamous Epith Cells (NONE/RARE) #/LPF Urine Crystals (None Seen) #/HPF Urine Bacteria (NONE SEEN) #/HPF Urine Casts (NONE SEEN) #/LPF Urine Mucus (NONE SEEN) Ur Culture Indicated? Urine Opiates Screen (NEGATIVE) Ur Buprenorphine Scrn (NEGATIVE) Ur Oxycodone Screen (NEGATIVE) Urine Methadone Screen (NEGATIVE) Ur Barbiturates Screen (NEGATIVE) U Tricyclic Antidepress (NEGATIVE) Ur Phencyclidine Scrn (NEGATIVE) Ur Amphetamines Screen (NEGATIVE) U Methamphetamines Scrn (NEGATIVE) U Benzodiazepines Scrn (NEGATIVE) Urine Cocaine Screen (NEGATIVE) U Cannabinoids Screen (NEGATIVE) Ethanol Quant mg/dL Influenza Type A Ag Positive A Influenza Type B Ag Negative RSV Antigen Not detected (NOT DETECTE) SARS-CoV-2 Ag (CV2AG) Negative (NEGATIVE) POC Glucose (74-106) mg/dL Discharge Plan Discharge Chief Complaint: Shortness of Breath/Dyspnea Clinical Impression: Respiratory failure requiring intubation, Hypomagnesemia, Elevated troponin, Acute hyponatremia Patient Disposition: [facility] Time of Disposition Decision: 18:52 Discharge location: [facility]
[2024-12-09] MEDS: PROPOFOL 1,000 MG/100 ML VIAL 2.381 MG IV (18:48)
[2024-12-09 19:41] LABS: PO2 ABG 96.3 mmHg (80.0-100.0)
[2024-12-09 19:42] LABS: Allen Test POSITIVE (POSITIVE); Base Excess ABG -3.4 mmol/L (-2.0-2.0); Fractionated Inspired Oxygen 50 %; HCO3 ABG 24.9 mmol/L (22.0-26.0); O2 Mode VENTILATOR; Oxygen Saturation ABG 93.7 %; Puncture Site L RADIAL; Rate 24; Vent Mode A/C
[2024-12-09 19:43] LABS: ABG PCO2 66.4 mmHg (35.0-45.0); Pos End Expiratory Pressure 5; Tidal Volume 350; pH ABG 7.183 (7.350-7.450)
[2024-12-09 20:02] LABS: Creatine Kinase 202 U/L (26-192)
[2024-12-09 20:07] LABS: Myoglobin 469 ng/mL (9-82)
--- NOTE | 2024-12-09 20:12 | PC.NURSE ---
soft wrist restraints applied for patient safety, explained to family and they understand protocol. Lopez bag emptied of 1300mL clear, yellow urine.
[2024-12-10 10:03] LABS: A. calcoaceticus-baumannii Cpx NOT DETECTED (NOT DETECTE); Bacteroides fragilis NOT DETECTED (NOT DETECTE); Candida albicans NOT DETECTED (NOT DETECTE); Candida auris NOT DETECTED (NOT DETECTE); Candida glabrata NOT DETECTED (NOT DETECTE); Candida krusei NOT DETECTED (NOT DETECTE); Candida parapsilosis NOT DETECTED (NOT DETECTE); Candida tropicalis NOT DETECTED (NOT DETECTE); Cryptococcus neoformans/gattii NOT DETECTED (NOT DETECTE); Enterobacter cloacae complex NOT DETECTED (NOT DETECTE); Enterobacterales NOT DETECTED (NOT DETECTE); Enterococcus faecalis NOT DETECTED (NOT DETECTE); Enterococcus faecium NOT DETECTED (NOT DETECTE); Haemophilus influenzae NOT DETECTED (NOT DETECTE); Klebsiella aerogenes NOT DETECTED (NOT DETECTE); Klebsiella pneumoniae group NOT DETECTED (NOT DETECTE); Listeria monocytogenes NOT DETECTED (NOT DETECTE); Neisseria meningitidis NOT DETECTED (NOT DETECTE); Proteus spp. NOT DETECTED (NOT DETECTE); Pseudomonas aeruginosa NOT DETECTED (NOT DETECTE); Salmonella spp. NOT DETECTED (NOT DETECTE); Serratia marcescens NOT DETECTED (NOT DETECTE); Staphylococcus epidermidis NOT DETECTED (NOT DETECTE); Staphylococcus lugdunensis NOT DETECTED (NOT DETECTE); Stenotrophomonas maltophilia NOT DETECTED (NOT DETECTE); Streptococcus agalactiae NOT DETECTED (NOT DETECTE); Streptococcus pneumoniae NOT DETECTED (NOT DETECTE); Streptococcus pyogenes NOT DETECTED (NOT DETECTE); Streptococcus spp. NOT DETECTED (NOT DETECTE)
[2024-12-10 11:19] LABS: Source Blood
[2024-12-10 11:21] LABS: Staphylococcus spp. DETECTED (NOT DETECTE)
== END 2024-12-09 20:45 | disposition short-term general hospital (02) ==
PROVIDERS: Emergency Medicine; Emergency Provider Emergency Medicine
DX: J96.90 Respiratory failure, unspecified, unspecified whether with hypoxia or hypercapnia (principal); E83.42 Hypomagnesemia; R79.89 Other specified abnormal findings of blood chemistry; E87.1 Hypo-osmolality and hyponatremia; J10.1 Influenza due to other identified influenza virus with other respiratory manifestations; R40.4 Transient alteration of awareness
CPT/HCPCS: 36415; 36600; 70450; 71045; 72125; 80053; 80307; 80320; 81001; 82550; 82805; 83605; 83735; 83874; 84484; 85007; 85027; 85610; 87040; 87150; 87186; 87420; 87804; 87811; 93005; 94002; 94640; 96365; 96366; 96368; 96375; 99285; J2704; J2919; J3475

== ENCOUNTER 2025-01-14 19:14 | Emergency (ER) | payer MEDICARE, MEDICAID, SELFPAY ==
--- OUTSIDE RECORDS SUMMARY | 2025-01-14 19:31 | XMS_ITS | CCD ---
Author Organization [facility] Care Team Providers Care Bulb Inspector Name Role Phone CHALO, DR GIANNA PACHECO [...] Consulting Unavailable SHAIKH SÁNCHEZ Primary Care Physician Windnagel, Arielle Admitting Unavailable Windnagel, Arielle Referring Unavailable Windnagel, Arielle Attending Unavailable Windnagel, Arielle Referring Unavailable Windnagel, Arielle Attending Unavailable Windnagel, Arielle Admitting Unavailable Shaikh Sánchez MD Unavailable Liam TEACHING FELLOW, Arielle C Unavailable [phone] Shaikh Sánchez MD Primary Care Provider Kirstin Carreon LPN Unavailable Unavailable Prasanth ANGULO, Ian Primary Care Provider [phone] Daniel Cardoso NP Unavailable [phone] SHAIKH SÁNCHEZ Attending Unavailable SHAIKH SÁNCHEZ Attending Unavailable VILMANABILLY, ARIELLE C Attending Unavailable SHAIKH SÁNCHEZ Attending Unavailable DANIEL CARDOSO Attending UnavailDANIEL Humphrey Attending UnavailGustavo Florentino LPN Unavailable Unavailable Liam GARZA, Arielle Edmonds Unavailable [phone] Arturo Chanel MA Unavailable Unavailable Walker GARZA-CDaniel Primary Care Provid er Ramos ANGULO, Soco Admit Provider Daniel Garza MD Attending Provider [phone] Sara ANGULO, Cecilia Other Provider Hernandez ANGULO, Suzette Other Provider Ryan Arshad MD Other Provider Ilana Mendoza APRN Other Provider Hubert Mcguire DO Other Provider Dave Bazan MD Other Provider PROVIDER, UNKNOWN Attending Unavailable PROVIDER, UNKNOWN Admitting Unavailable Gianna Isabel MD Primary Care Provider Unava ilable Daniel Cardoso Primary Care Unavaila iveth Ng, Suzette Consulting Unavailable Soco Beasley Admitting Unavailable Daniel Garza Attending Unavailable Ryan Arshad Consulting Unavailable Ilana Mendoza Consulting Unavailable Hubert Mcguire Jr Consulting UnavailDave Conn Consulting Unavaila iveth Ruiz, Basem Consulting Unavailable Liam GARZA, Arielle Edmonds Unavailable Daniel Cardoso NP Unavailable [phone] Medications Current Medications Medication Drug Class(es) Dates Sig (Normalized) Sig (Original) acetaminophen 500 mg oral capsule (1 source) Start: 01-04-2025 take 1 capsule by mouth every six hours as needed Acetaminophen 500 mg capsule Active 500 MG PO Every 6 hours as needed January 04, 2025 12:00am [id number] 200 actuat albuterol 0.09 mg/actuat metered dose inhaler (20 sources) beta2-Adrenergic Agonist Start: 01-14-2025 take 2 puff(s) by inhalation every four hours for wheezing albuterol HFA 90 mcg/act inhaler Indications: Chronic obstructive pulmonary disease, unspecified COPD type (CMS/HCC) Inhale 2 puffs every 4 (four) hours if needed for wheezing 18 g 3 01/14/2025 Active Start: 01-14-2025 take 2 puff(s) by in halation every four hours for wheezing albuterol HFA 90 mcg/act inhaler Indications: Chronic obstructive pulmonary disease, unspecified COPD type (CMS/HCC) Inhale 2 puffs every 4 (four) hours if needed for wheezing 18 g 3 01/14/2025 Active Start: 12-10-2024 Albuterol Sulf ate 90 mcg/actuation HFA aerosol inhaler Active INHALATION December 10, 2024 12:00am Start: 06-21-2024 End: 01-14-2025 take 2 puff(s) by inhalation every four hours for wheezing albuterol HFA 90 mcg/act inhaler Indications: Asthma with COPD (chronic obstructive pulmonary disease) (CMS/HCC) Inhale 2 puffs every 4 (four) hours if needed for wheezing 18 g 11/27/2024 01/14/2025 Discontinued (Reorder) albuterol (2.5 M G/3ML) 0.083% nebulizer solution Take 2.5 mg by nebulization every 6 (six) hours if needed for wheezing Active alendronic acid 70 mg oral tablet (4 sources) Bisphosphonate take 1 tablet by mouth in the morning alendronate (FOSAMAX) 70 mg tablet Take 70 mg by mouth every 7 days. In a.m. with water on empty stomach, nothing else by mouth and remain upright for 30min Active atorvastatin 40 mg oral tablet (20 sources) HMG-CoA Reductase Inhibitor Start: 018 End: 025 take 1 tablet by mouth once daily atorvastatin (Lipitor) 40 MG tablet Indications: Hyperlipidemia, unspecified (CMS/HCC) Take 1 tablet (40 mg) by mouth Daily 90 tablet 09/11/2024 Active calcium carbonate 1250 mg / cholecalciferol 200 unt oral tablet (4 sources) Vitamin D take 1 tablet by mouth twice daily at mealtime calcium carbonate-vitamin D3 (CALCIUM 500 + D) 500 mg(1,250mg) -200 units per tablet Take 1 tablet by mouth 2 (two) times a day with meals. Active cholecalciferol 0.05 mg oral tablet (20 sources) Vitamin D Start: 024 take 1 tablet by mouth once daily cholecalciferol (Vitamin D-3) 50 MCG (2000 UT) tablet Indications: Vitamin D deficiency Take 1 tablet (50 mcg) by mouth Daily 90 tablet 06/21/2024 Active take 1 tablet by mouth once ruth y cholecalciferol, vitamin D3, (VITAMIN D3) 1,000 units tablet Take 1,000 Units by mouth daily. Active DOCOSAHEXANOIC ACID/EPA (FISH OIL ORAL) (4 sources) take 1000 mg by mouth once daily DOCOSAHEXANOIC ACID/EPA (FISH OIL ORAL) Take 1,000 mg by mouth daily. Active docusate sodium 100 mg oral capsule (4 sources) take 1 capsule by mouth twice daily docusate sodium (COLACE) 100 mg capsule Take 100 mg by mouth 2 (two) times a day. Active famotidine 20 mg oral tablet (4 sources) Histamine-2 Receptor Antagonist take 1 tablet by mouth twice daily famotidine (PEPCID) 20 mg tablet Take 20 mg by mouth 2 (two) times a day. Active ferrous gluconate 324 mg oral tablet (1 source) Start: 04-30-20 End: 07-07-20 24 take 1 tablet by mouth once daily ferrous gluconate (Fergon) 324 (38 Fe) MG tablet Indications: Iron deficiency TAKE 1 TABLET BY MOUTH DAILY 100 tablet 04/30/2024 07/07/2024 Discontinued (Therapy completed) ferrous sulfate 325 mg delayed release oral tablet (20 sources) Start: 07-07-20 End: 12-06-19 take 1 tablet by mouth at mealtime ferrous sulfate (Fe Tabs) 325 (65 Fe) MG EC tablet Indications: 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 loss Take 1 tablet (325 mg) by mouth in the morning. Take with meals. Do not crush, chew, or split.. 30 tablet 11 12/06/2024 12/06/2025 Active ferrous sulfate (IRON ORAL) Take by mouth. Active fexofenadine hydrochloride 180 mg oral tablet (4 sources) Histamine-1 Receptor Antagonist take 1 tablet by mouth once daily fexofenadine (NADIRA) 180 mg tablet Take 180 mg by mouth daily. Active fluticasone propionate 0.05 mg/actuat metered dose nasal spray (4 sources) Corticosteroid take 1 spray(s) nasal route once daily fluticasone (FLONASE) 50 mcg/actuation nasal spray Administer 1 spray into each nostril daily. Active Fluticasone-Umeclidin -Vilant (Trelegy Ellipta) 200-62.5-25 MCG/ACT aerosol powder (20 sources) Start: 08-27-20 Fluticasone-Umeclidi n-Vilant (Trelegy Ellipta) 200-62.5-25 MCG/ACT aerosol powder Indications: Asthma with COPD (chronic obstructive pulmonary disease) ([facility]) Inhale 1 Inhalation Daily 3 each 1 08/27/2024 Active Start: 08-27-2024 End: 11-25-2024 Lbplsyvqkci-Srnimakyl-Ewbfhq (Trelegy Ellipta) 200-62.5-25 MCG/ACT aerosol powder Indications: Asthma with COPD (chronic obstructive pulmonary disease) ([facility]) Inhale 1 Inhalation Daily 3 each 1 08/27/2024 11/25/2024 Active Start: 06-11-2024 End: 08-27-2024 Oyczwjnzhkd-Redruqeat-Htltok (Trelegy Ellipta) 200-62.5-25 MCG/ACT aerosol powder Indications: Asthma with COPD (chronic obstructive pulmonary disease) ([facility]) Inhale 1 Inhalation Daily 3 each 1 06/11/2024 08/27/2024 Discontinued (Reorder) Start: 06-11-2024 End: 09-09-2024 Hvqkmhagtkv-Jpovezptu-Syusfe (Trelegy Ellipta) 200-62.5-25 MCG/ACT aerosol powder Indications: Asthma with COPD (chronic obstructive pulmonary disease) ([facility]) Inhale 1 Inhalation Daily 3 each 1 06/11/2024 09/09/2024 Active Wrxjvcbdmrs-Gymxjbpiv-Oequey er (3 sources) Start: 01-04-2025 Vgskniaqpro-Pofmsshkj-Unwkmc er (Trelegy Ellipta) 200-62.5-25 mcg blister with device Active INHALATION Twice daily January 04, 2025 9:12am Start: 12-10-2024 End: 01-04-2025 Cjzzfnjsaya-Loqkevaio-Szovnu er (Trelegy Ellipta) 200-62.5-25 mcg blister with device Discontinued INHALATION December 10, 2024 12:00am January 04, 2025 9:14am Start: 12-10-2024 Fluticasone-Um eclidin-Vilanter (Trelegy Ellipta) 200-62.5-25 mcg blister with device Active INHALATION December 10, 2024 12:00am hydroCHLOROthiazide 12.5 mg / losartan potassium 50 mg oral tablet (13 sources) Thiazide Diuretic, Angiotensin 2 Receptor Lloyd Start: 01-26-2024 End: 01-25-2025 take 1 tablet by mouth once daily losartan-hydroCHLOROthiazide (Hyzaar) 50-12.5 MG tablet Indications: Primary hypertension (CMS/HCC) Take 1 tablet by mouth Daily 30 tablet 11 01/26/2024 09/20/2024 Discontinued (Dose adjustment) Lactate (4 sources) ammonium lactate 12-12 % kit Apply topically. Active lisinopril 10 mg oral tablet (4 sources) Angiotensin Converting Enzyme Inhibitor take 1 tablet by mouth twice daily lisinopril (PRINIVIL,ZESTRIL) 10 mg tablet Take 10 mg by mouth 2 (two) times a day. Active LORazepam 0.5 mg oral tablet (7 sources) Benzodiazepine Start: 01-07-2025 End: 01-17-2025 take 1 tablet by mouth three times daily as needed for anxiety LORazepam (Ativan) 0.5 MG tablet Indications: ELADIO (generalized anxiety disorder) ([facility]) Take 1 tablet (0.5 mg) by mouth 3 (three) times a day as needed for anxiety for up to 10 days 30 tablet 01/07/2025 01/17/2025 Active Start: 01-04-2025 take 1 tablet by angie th three times daily as needed Lorazepam 0.5 mg tablet Active 0.5 MG PO Three times daily as needed January 04, 2025 12:00am take 1 tablet by angie th every six hours as needed for anxiety LORazepam (Ativan) 0.5 MG tablet Take 0.5 mg by mouth every 6 (six) hours if needed for anxiety Active meloxicam 7.5 mg oral tablet (20 sources) Nonsteroidal Anti-inflammatory Drug Start: 12-10-2024 End: 01-04-2025 take 1 tablet by mouth once daily Meloxicam 7.5 mg tablet Active 7.5 MG PO Daily January 04, 2025 9:13am Start: 02-28-2019 End: 09-20-2024 take 1 tablet by mouth once daily meloxicam (MOBIC) 7.5 mg tablet Take 7.5 mg by mouth daily. 5 02/28/2019 Active metFORMIN hydrochloride 500 mg oral tablet (20 sources) Biguanide Start: 04-30-2024 End: 01-04-2025 take 1 tablet by mouth once daily metFORMIN (Glucophage) 500 MG tablet Indications: Type 2 diabetes mellitus without complications (CMS/HCC) Take 1 tablet (500 mg) by mouth Daily 100 tablet 09/11/2024 Active take 1 tablet by angie th twice daily at mealtime metFORMIN (GLUCOPHAGE) 500 mg tablet Luis Alberto e 500 mg by mouth 2 (two) times a day with meals. Active multivitamin capsule (4 sources) take 1 capsule by mouth once daily multivitamin capsule Take 1 capsule by mouth daily. Active omeprazole 20 mg delayed release oral capsule (20 sources) Proton Pump Inhibitor Start: 01-30-20 End: 01-04-20 take 1 capsule by mouth once daily omeprazole (PriLOSEC) [address] capsule Indications: Gastro-esophageal reflux disease without esophagitis Take 1 capsule (20 mg) by mouth Daily 100 capsule 2 10/22/2024 Active ondansetron 4 mg oral tablet (1 source) Serotonin-3 Receptor Antagonist Start: 01-04-20 take 1 tablet by mouth every six hours as needed Ondansetron Hcl 4 mg tablet Active 4 MG PO Every 6 hours as needed January 04, 2025 12:00am PEG 3350 (Glycolax, Miralax) 4 gram packet (2 sources) PEG 3350 (Glycol ax, Miralax) 4 gram packet 17 g in the morning. Active polyethylene glycol 3350 11819 mg powder for oral solution (4 sources) Osmotic Laxative polyethylene gl ycol (GLYCOLAX) 17 gram packet Take 17 g by mouth daily. Active sertraline 50 mg oral tablet (20 sources) Serotonin Reuptake Inhibitor Start: 04-30-20 End: 01-04-20 take 1 tablet by mouth once daily sertraline (Zoloft) 50 MG tablet Indications: Depression, unspecified (CMS/HCC) TAKE 1 TABLET BY MOUTH DAILY 100 tablet 10/22/2024 Active spironolactone 25 mg oral tablet (4 sources) Aldosterone Antagonist take 1 tablet by mouth once daily spironolactone (ALDACTONE) 25 mg tablet Take 1 tablet by mouth daily. Active Completed/Discontinued Medications Medication Drug Class(es) Dates Sig (Normalized) Sig (Original) amoxicillin 500 mg / clavulanate 125 mg oral tablet (4 sources) Penicillin-class Antibacterial Start: 12-14-2024 End: 01-04-2025 take 1 tablet by mouth twice daily Amoxicillin-Pot Clavulanate (Augmentin) 500-125 mg tablet Discontinued 1 TAB PO Twice daily 6 3 December 14, 2024 12:00am January 04, 2025 9:14am Start: 09-20-2024 End: 09-30-2024 take 1 tablet by mouth in the morning amoxicillin-clavulanate (Augmentin) 875-125 MG tablet Indications: Non-recurrent acute serous otitis media of left ear Take 1 tablet (875 mg) by mouth in the morning and 1 tablet (875 mg) before bedtime. Do all this for 10 days. 20 tablet 09/20/2024 09/30/2024 Active losartan potassium 50 mg oral tablet (14 sources) Angiotensin 2 Receptor Lloyd Start: 09-20-2024 End: 09-20-2025 Losartan 50 mg tablet Discontinued MG TABLET December 10, 2024 12:00am January 04, 2025 9:14am oseltamivir 30 mg oral capsule (2 sources) Neuraminidase Inhibitor Start: 12-14-2024 End: 01-04-2025 take 1 capsule by mouth twice daily Oseltamivir 30 mg Capsule Discontinued 30 MG PO Twice daily 4 2 December 14, 2024 12:00am January 04, 2025 9:14am predniSONE 20 mg oral tablet (2 sources) Start: 12-14-2024 End: 01-04-2025 take 2 tablets by mouth once daily Prednisone 20 mg Tablet Discontinued 40 MG PO Daily 4 December 14, 2024 12:00am January 04, 2025 9:14am Problems Active Problems Problem Classification Problem Date Documented Date Episodic/Chronic Administrative/socia l admission (5 sources) Other reduced mobility; Translations: [Impaired mobility and activities of daily living] Onset: 12-09-2024 12-13-2024 Episodic Anxiety disorders (7 sources) Anxiety; Translations: [Anxiety disorder, unspecified] Onset: 12-24-2024 12-24-2024 Chronic Aortic; peripheral; and visceral artery aneurysms (4 sources) Aneurysm of other specified arteries; Translations: [ANEURYSM OTHER SPECIFIED ARTERIES] Onset: 04-08-2022 Chronic Aspiration pneumonitis; food/vomitus (11 sources) Aspiration pneumonia; Translations: [Pneumonitis due to inhalation of food and vomit] Onset: 12-09-2024 12-10-2024 Episodic Asthma (20 sources) Asthma-chronic obstructive pulmonary disease overlap syndrome; Translations: [Asthma with COPD (chronic obstructive pulmonary disease) ([facility])] Onset: 11-21-2023 08-27-2024 Chronic Chronic obstructive pulmonary disease and bronchiectasis (18 sources) Chronic obstructive pulmonary disease, unspecified; Translations: [Acute exacerbation of chronic obstructive airways disease] Onset: 12-27-2018 12-10-2024 Chronic Deficiency and other anemia (20 sources) Iron 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; Translations: [Iron deficiency anemia secondary to blood loss (chronic)] Onset: 11-21-2023 11-21-2023 Chronic Deficiency and other anemia (1 source) Anemia, unspecified; Translations: [ANEMIA UNSPECIFIED] Onset: 01-09-2023 Episodic Diabetes mellitus with complications (2 sources) Polyneuropathy due to type 2 diabetes mellitus; Translations: [Type 2 diabetes mellitus with diabetic polyneuropathy] 01-14-2025 Chronic Diabetes mellitus without complication (20 sources) Type [...] [Essential (primary) hypertension] Onset: 01-26-2024 01-26-2024 Chronic Influenza (17 sources) Influenza due to Influenza A virus; Translations: [Influenza due to other identified influenza virus with other respiratory manifestations] Onset: 12-09-2024 12-10-2024 Episodic Mood disorders (20 sources) Recurrent major depression in full remission; Translations: [Major depressive disorder, recurrent, in full remission] Onset: 11-21-2023 11-21-2023 Chronic Nutritional deficiencies (20 sources) Vitamin D deficiency; Translations: [Vitamin D deficiency, unspecified] Onset: 06-21-2024 06-21-2024 Chronic Other and unspecified benign neoplasm (4 sources) Benign neoplasm of cranial nerves; Translations: [BENIGN NEOPLASM OF CRANIAL NERVES] Onset: 04-26-2022 Chronic Other and unspecified benign neoplasm (20 sources) Acoustic neuroma; Translations: [Benign neoplasm of cranial nerves] Onset: 01-26-2024 02-23-2024 Chronic Other and unspecified benign neoplasm (20 sources) Acoustic neuroma of right vestibular nerve; Translations: [Benign neoplasm of cranial nerves] Onset: 02-23-2024 02-23-2024 Chronic Other and unspecified benign neoplasm (2 sources) Benign neoplasm of cranial nerve; Translations: [Benign neoplasm of cranial nerves] 01-14-2025 Chronic Other circulatory disease (2 sources) Low blood pressure; Translations: [Hypotension, unspecified] 12-10-2024 Episodic Other circulatory disease (3 sources) Hypotension, unspecified; Translations: [Hypotension, unspecified] Onset: 12-09-2024 12-14-2024 Episodic Other connective tissue disease (2 sources) Other bursitis of elbow, left elbow; Translations: [Other enthesopathy of elbow region] 09-11-2024 Episodic Other connective tissue disease (1 source) Bursitis of elbow; Translations: [Other bursitis of elbow, left elbow] 07-25-2024 Episodic Other ear and sense organ disorders (20 sources) Sensorineural hearing loss in right ear; Translations: [Unspecified sensorineural hearing loss] Onset: 08-20-2021 03-08-2024 Chronic Other nervous system disorders (20 sources) Spinal cord disease; Translations: [Disease of spinal cord, unspecified] Onset: 02-23-2024 02-23-2024 Chronic Other nervous system disorders (20 sources) Disorder of nervous system; Translations: [Demyelinating disease of central nervous system, unspecified] Onset: 02-23-2024 02-23-2024 Chronic Other nervous system disorders (1 source) Ataxia, unspecified; Translations: [ATAXIA UNSPECIFIED] Onset: 01-09-2023 Episodic Other nervous system disorders (6 sources) Finding related to ability to move; Translations: [Other abnormalities of gait and mobility] Onset: 12-28-2024 12-28-2024 Episodic Other nutritional; endocrine; and metabolic disorders (1 source) Abnormal weight loss; Translations: [ABNORMAL WEIGHT LOSS] Onset: 01-09-2023 Episodic Otitis media and related conditions (2 sources) Acute non-suppurative otitis media - serous; Translations: [Acute serous otitis media, left ear] 09-20-2024 Episodic Residual codes; unclassified (2 sources) Tobacco user; Translations: [Tobacco use] 12-12-2024 Episodic Residual codes; unclassified (3 sources) Tobacco use; Translations: [Tobacco use disorder] Onset: 12-09-2024 12-14-2024 Episodic Residual codes; unclassified (1 source) Other specified health status; Translations: [Other specified health status] Onset: 12-09-2024 Episodic Respiratory failure; insufficiency; arrest (adult) (16 sources) Acute respiratory failure; Translations: [Acute respiratory failure with hypoxia] Onset: 12-09-2024 12-10-2024 Episodic Substance-related disorders (20 sources) Smoker; Translations: [Nicotine dependence, unspecified, uncomplicated] Onset: 11-21-2023 11-21-2023 Chronic Past or Other Problems Problem Classification Problem Date Documented Da te Episodic/Chronic Gastrointestinal hemorrhage (4 sources) Rectal hemorrhage; Translations: [Hemorrhage of anus and rectum] Onset: 11-29-2019 11-29-2019 Episodic Mood disorders (20 sources) Mood disorders; Translations: [Depression, unspecified] Onset: 12-09-2024 03-08-2024 Other and unspecified benign neoplasm (20 sources) Other benign neoplasm of skin of right ear and external auricular canal; Translations: [Benign neoplasm of ear and external auditory canal] Onset: 06-21-2024 06-21-2024 Episodic Other connective tissue disease (20 sources) Recurrent falls ; Translations: [Repeated falls] Onset: 02-23-2024 02-23-2024 Episodic Other gastrointestinal disorders (20 sources) Occult blood in stools; Translations: [Other fecal abnormalities] Onset: 11-29-2019 01-26-2024 Episodic Other screening for suspected conditions (not mental disorders or infectious disease) (20 sources) Patient encounter status; Translations: [Encounter for screening mammogram for malignant neoplasm of breast] Onset: 11-21-2023 11-21-2023 Episodic Unclassified (4 sources) Onset: 11-29-2019 11-29-2019 Results Test Name Value Interpretation Reference Range Facility Alanine aminotransferase [En zymatic activity/volume] in Serum or PlasmaOrdered By: Daniel Garza on 12-14-2024 ALT [Catalytic activity/Vol] Alanine aminotransferase [Enzymatic activity/volume] in Serum or Plasma High 7-52 [facility] Albumin [Mass/volume] in Ser um or Plasma by Bromocresol green (BCG) dye binding methoOrdered By: Daniel Garza on 12-14-2024 Albumin BCG dye [Mass/Vol] Albumin [Mass/volume] in Serum or Plasma by Bromocresol green (BCG) dye binding metho 3.5-5.7 [facility] Alkaline phosphatase [Enzyma tic activity/volume] in Serum or PlasmaOrdered By: Daniel Garza on 12-14-2024 ALP [Catalytic activity/Vol] Alkaline phosphatase [Enzymatic activity/volume] in Serum or Plasma 34-104 [facility] Aspartate aminotransferase [ Enzymatic activity/volume] in Serum or PlasmaOrdered By: Daniel Garza on 12-14-2024 AST [Catalytic activity/Vol] Aspartate aminotransferase [Enzymatic activity/volume] in Serum or Plasma 13-39 [facility] Basophils Auto (Bld) [#/Vol] Ordered By: Daniel Garza on 12-14-2024 Basophils (Bld) [#/Vol] Automated basoph il count 0.0-0.2 [facility] Basophils/100 WBC Auto (Bld) Ordered By: Daniel Garza on 12-14-2024 Basophils/100 WBC (Bld) Automated basophil % . [facility] Bilirubin.total [Mass/volume ] in Serum or PlasmaOrdered By: Daniel Garza on 12-14-2024 Bilirubin [Mass/Vol] Bilirubin.total [Mass/volume] in Serum or Plasma 0.3-1.0 [facility] Calcium [Mass/volume] in Ser um or PlasmaOrdered By: Daniel Garza on 12-14-2024 Calcium [Mass/Vol] Calcium [Mass/volume ] in Serum or Plasma 8.6-10.3 [facility] Carbon dioxide, total [Moles /volume] in Serum or PlasmaOrdered By: Daniel Garza on 12-14-2024 CO2 [Moles/Vol] Carbon dioxide, tota l [Moles/volume] in Serum or Plasma 21.0-31.0 [facility] Chloride [Moles/volume] in S idris or PlasmaOrdered By: Daniel Garza on 12-14-2024 Chloride [Moles/Vol] Chloride [Moles/volume] in Serum or Plasma Low 98-107 [facility] Complete Blood Count Auto Di ffon 12-14-2024 Basophils (Bld) [#/Vol] 0.0 10*3/uL Normal 0.0-0.2 [facility] Comment on above: Result Comment: PERF ORMED BY: [facility] [address] [place] [address] PATHOLOGIST SENIOR RESEARCH ENGINEER MANDY ACUÑA M.D. Performed By: #### C MP, CBC ####[address] Basophils/100 WBC (Bld) 0.2 % Normal . T abilio [facility] Comment on above: Performed By: #### C MP, CBC ####[address] Eosinophils (Bld) [#/Vol] 0.0 10*3/uL Normal 0.0-0.45 [facility] Comment on above: Performed By: #### C MP, CBC ####[address] Eosinophils/100 WBC (Bld) 0.0 % Normal . [facility] Comment on above: Performed By: #### C MP, CBC ####[address] Erythrocyte distribution width (RBC) [Ratio] 15.3 % Normal 11.9-15.3 [facility] Comment on above: Performed By: #### C MP, CBC ####[address] [address] [place] Hematocrit (Bld) [Volume fraction] 40.4 % Normal 34.0-46.4 [facility] Comment on above: Performed By: #### C MP, CBC ####[address] Hemoglobin (Bld) [Mass/Vol] 13.4 g/dL Normal 11.8-15.4 [facility] Comment on above: Performed By: #### C MP, CBC ####[address] Lymphocytes (Bld) [#/Vol] 0.6 10*3/uL Low 1.00-4.8 [facility] Comment on above: Performed By: #### C MP, CBC ####[address] Lymphocytes/100 WBC (Bld) 7.0 % Normal . [facility] Comment on above: Performed By: #### C MP, CBC ####[address] MCH (RBC) [Entitic mass] 28.5 pg Normal 24.7-34.3 [facility] Comment on above: Performed By: #### C MP, CBC ####[address] MCV (RBC) [Entitic vol] 85.6 fL Normal 80-100 T he [facility] Comment on above: Performed By: #### C MP, CBC ####[address] Mean Corpuscular HGB Conc 33.3 g/dL Normal 32.0-35.0 [facility] Comment on above: Performed By: #### C MP, CBC ####[address] Monocytes (Bld) [#/Vol] 0.7 10*3/uL Normal 0.0-0.8 [facility] Comment on above: Performed By: #### C MP, CBC ####[address] Monocytes/100 WBC (Bld) 8.2 % Normal . T he [facility] Comment on above: Performed By: #### C MP, CBC ####[address] Neutrophils (Bld) [#/Vol] 7.2 10*3/uL Normal 1.8-7.7 [facility] Comment on above: Performed By: #### C MP, CBC ####[address] Neutrophils/100 WBC (Bld) 84.6 % Normal . The [facility] Comment on above: Performed By: #### C MP, CBC ####[address] NRBC% 0.1 /100{WBC} Normal 0-0.5 [facility] Comment on above: Performed By: #### C MP, CBC ####[address] Platelet mean volume (Bld) [Entitic vol] 7.4 fL Normal 6.3-10.7 [facility] Comment on above: Performed By: #### C MP, CBC ####[address] Platelets (Bld) [#/Vol] 276 10*3/uL Normal 150-450 [facility] Comment on above: Performed By: #### C MP, CBC ####[address] RBC (Bld) [#/Vol] 4.72 10*6/uL Normal 3.60-5.00 [facility] Comment on above: Performed By: #### C MP, CBC ####[address] WBC (Bld) [#/Vol] 8.6 10*3/uL Normal 3.8-11.6 [facility] Comment on above: Performed By: #### C MP, CBC ####[address] [address] [facility] Comprehensive Metabolic Pane ana 12-14-2024 Albumin [Mass/Vol] 3.7 g/dL Normal 3.5-5.7 [facility] Comment on above: Performed By: #### C MP, CBC ####[address] [address] [facility] Albumin/Globulin [Mass ratio] 1.2 {ratio} Normal [facility] Comment on above: Performed By: #### C MP, CBC ####[address] [address] [facility] ALP [Catalytic activity/Vol] 84 U/L Normal 34-104 [facility] Comment on above: Performed By: #### C MP, CBC ####[address] [address] [facility] ALT [Catalytic activity/Vol] 55 U/L High 7-52 [facility] Comment on above: Performed By: #### C MP, CBC ####[address] [address] [facility] Anion gap [Moles/Vol] 12.7 mmol/L Normal 6.0-15.0 [facility] Comment on above: Performed By: #### C MP, CBC ####[place] [id number] [facility] AST [Catalytic activity/Vol] 29 U/L Normal 13-39 [facility] Comment on above: Performed By: #### C MP, CBC ####[place] [id number] [facility] Bilirubin [Mass/Vol] 0.6 mg/dL Normal 0.3-1.0 [facility] Comment on above: Performed By: #### C MP, CBC ####[address] [address] [facility] Calcium [Mass/Vol] 9.2 mg/dL Normal 8.6-10.3 [facility] Comment on above: Performed By: #### C MP, CBC ####[address] [place] [address] [place] Chloride [Moles/Vol] 93 mmol/L Low 98-107 [facility] Comment on above: Performed By: #### C MP, CBC ####[address] CO2 [Moles/Vol] 29.4 mmol/L Normal 21.0-31.0 [facility] Comment on above: Performed By: #### C MP, CBC ####[address] Creatinine [Mass/Vol] 0.81 mg/dL Normal 0.60-1.20 [facility] Comment on above: Performed By: #### C MP, CBC ####[address] Creatinine Clr Calc Pharmacy 66.51 Normal The [facility] Comment on above: Result Comment: PERF ORMED BY: [place] [address] PATHOLOGIST SENIOR RESEARCH ENGINEER MANDY ACUÑA M.D. Performed By: #### C MP, CBC ####[address] GFR/1.73 sq M.predicted MDRD (S/P/Bld) [Vol rate/Area] mL/min/{1.73_m2} Normal [facility] Comment on above: Performed By: #### C MP, CBC ####[address] Globulin (S) [Mass/Vol] 3.2 g/dL Normal T he [facility] Comment on above: Performed By: #### C MP, CBC ####[address] Glucose [Mass/Vol] 145 mg/dL High 70-100 [facility] Comment on above: Result Comment: [place] Glucose Reference Range is dependent on time and content of last meal. Glucose of more than 200 mg/dL in a nonstressed, ambulatory subject supports the diagnosis of Diabetes Mellitus. ADA recommended reference range Performed By: #### C MP, CBC ####[place] [id number] [facility] Potassium [Moles/Vol] 4.1 mmol/L Normal 3.5-5.1 [facility] Comment on above: Performed By: #### C MP, CBC ####[facility] [place] [id number] [facility] Protein [Mass/Vol] 6.9 g/dL Normal 6.4-8.9 [facility] Comment on above: Performed By: #### C MP, CBC ####[place] [id number] [facility] Sodium [Moles/Vol] 131 mmol/L Low 136-145 [facility] Comment on above: Performed By: #### C MP, CBC ####[facility] [place], [place] [id number] [facility] Urea nitrogen [Mass/Vol] 24 mg/dL Normal 7-25 [facility] Comment on above: Performed By: #### C MP, CBC ####[facility] [place], [place] [id number] [facility] Creatinine [Mass/volume] in Serum or PlasmaOrdered By: Daniel Garza on 12-14-2024 Creatinine [Mass/Vol] Creatinine [Mass/volume] in Serum or Plasma 0.60-1.20 [facility] Eosinophils Auto (Bld) [#/Vo l]Ordered By: Daniel Garza on 12-14-2024 Eosinophils (Bld) [#/Vol] Automated eosinophil count 0.0-0.45 [facility] Eosinophils/100 WBC Auto (Bl d)Ordered By: Daniel Garza on 12-14-2024 Eosinophils/100 WBC (Bld) Automated eosinophil % . [facility] Erythrocyte distribution wid th Auto (RBC) [Ratio]Ordered By: Daniel Garza on 12-14-2024 Erythrocyte distribution width (RBC) [Ratio] Erythrocyte distribution width [Ratio] by Automated count 11.9-15.3 [facility] Globulin Calc (S) [Mass/Vol] Ordered By: Daniel Garza on 12-14-2024 Globulin (S) [Mass/Vol] Serum globulin measurement by calculation (mass/volume) [facility] Glucose Glucometer (BldC) [M ass/Vol]Ordered By: Daniel Garza on 12-14-2024 Glucose [Mass/Vol] Capillary blood glucose measurement by glucometer (mass/volume) [facility] Comment on above: Random Glucose Refer ence Range is dependent on time and content of last meal. Glucose of more than 200 mg/dL in a nonstressed, ambulatory subject supports the diagnosis of Diabetes Mellitus. Glucose Poct Glucometerson 0 12-14-2024 Glucose [Mass/Vol] 236 mg/dL Normal The [facility] Comment on above: Result Comment: [place] om Glucose Reference Range is dependent on time and content of last meal. Glucose of more than 200 mg/dL in a nonstressed, ambulatory subject supports the diagnosis of Diabetes Mellitus. PERFORMED BY: [address] [place] [address] PATHOLOGIST SENIOR RESEARCH ENGINEER MANDY ACUÑA M.D. Performed By: #### A BG #### Point of Care testing , Glucose [Mass/Vol] 154 mg/dL Normal [facility] Comment on above: Result Comment: [place] om Glucose Reference Range is dependent on time and content of last meal. Glucose of more than 200 mg/dL in a nonstressed, ambulatory subject supports the diagnosis of Diabetes Mellitus. PERFORMED BY: [address] [place] [address] PATHOLOGIST SENIOR RESEARCH ENGINEER MANDY ACUÑA M.D. Performed By: #### G LULS #### Point of Care testing , Glucose [Mass/Vol] 105 mg/dL Normal The [facility] Comment on above: Result Comment: [place] Glucose Reference Range is dependent on time and content of last meal. Glucose of more than 200 mg/dL in a nonstressed, ambulatory subject supports the diagnosis of Diabetes Mellitus. PERFORMED BY: [facility] [address] [place] [address] PATHOLOGIST SENIOR RESEARCH ENGINEER MANDY ACUÑA M.D. Performed By: #### A BG #### Point of Care testing , Glucose [Mass/volume] in Ser um or PlasmaOrdered By: Daniel Garza on 12-14-2024 Glucose [Mass/Vol] Glucose [Mass/volume ] in Serum or Plasma High 70-100 [facility] Comment on above: ADA recommended refe rence rangeRandom Glucose Reference Range is dependent on time and content of last meal. Glucose of more than 200 mg/dL in a nonstressed, ambulatory subject supports the diagnosis of Diabetes Mellitus. Hematocrit Auto (Bld) [Volum e fraction]Ordered By: Daniel Garza on 12-14-2024 Hematocrit (Bld) [Volume fraction] Hematocrit [Volume Fraction] of Blood by Automated count 34.0-46.4 [facility] Hemoglobin [Mass/volume] in BloodOrdered By: Daniel Garza on 12-14-2024 Hemoglobin (Bld) [Mass/Vol] Hemoglobin [Mass/volume] in Blood 11.8-15.4 [facility] Leukocytes [#/volume] correc brendan for nucleated erythrocytes in Blood by Automated counOrdered By: Daniel Garza on 12-14-2024 WBC corrected for nucl RBC Auto (Bld) [#/Vol] Leukocytes [#/volume] corrected for nucleated erythrocytes in Blood by Automated coun 3.8-11.6 [facility] Lymphocytes Auto (Bld) [#/Vo l]Ordered By: Daniel Garza on 12-14-2024 Lymphocytes (Bld) [#/Vol] Lymphocytes [#/volume] in Blood by Automated count Low 1.00-4.8 [facility] Lymphocytes/100 WBC Auto (Bl d)Ordered By: Daniel Garza on 12-14-2024 Lymphocytes/100 WBC (Bld) Lymphocytes/100 leukocytes in Blood by Automated count . [facility] MCH Auto (RBC) [Entitic mass ]Ordered By: Daniel Garza on 12-14-2024 MCH (RBC) [Entitic mass] MCH [Entitic ma ss] by Automated count 24.7-34.3 [facility] MCHC Auto (RBC) [Mass/Vol]Or dered By: Daniel Garza on 12-14-2024 MCHC (RBC) [Mass/Vol] MCHC [Mass/volume] by Automated count 32.0-35.0 [facility] MCV Auto (RBC) [Entitic vol] Ordered By: Daniel Garza on 12-14-2024 MCV (RBC) [Entitic vol] MCV [Entitic vol ume] by Automated count 80-100 [facility] Monocytes Auto (Bld) [#/Vol] Ordered By: Daniel Garza on 12-14-2024 Monocytes (Bld) [#/Vol] Automated blood monocyte count 0.0-0.8 [facility] Monocytes/100 WBC Auto (Bld) Ordered By: Daniel Garza on 12-14-2024 Monocytes/100 WBC (Bld) Automated monocyte % . [facility] Neutrophils Auto (Bld) [#/Vo l]Ordered By: Daniel Garza on 12-14-2024 Neutrophils (Bld) [#/Vol] Neutrophils [#/volume] in Blood by Automated count 1.8-7.7 [facility] Neutrophils/100 WBC Auto (Bl d)Ordered By: Daniel Garza on 12-14-2024 Neutrophils/100 WBC (Bld) Automated neutrophil % . [facility] No Panel InformationOrdered By: Daniel Garza on 12-14-2024 Estimated GFR (CKD-EPI) > 60.0 mL/Min [facility] Creatinine Clearance (Chem 66.51 [facility] Nucleated erythrocytes [Pres ence] in Blood by Automated countOrdered By: Daniel Garza on 12-14-2024 Nucleated RBC Auto Ql (Bld) Nucleated erythrocytes [Presence] in Blood by Automated count 0-0.5 [facility] Platelet mean volume Auto (B ld) [Entitic vol]Ordered By: Daniel Garza on 12-14-2024 Platelet mean volume (Bld) [Entitic vol] Platelet mean volume [Entitic volume] in Blood by Automated count 6.3-10.7 [facility] Platelets Auto (Bld) [#/Vol] Ordered By: Daniel Garza on 12-14-2024 Platelets (Bld) [#/Vol] Platelets [#/vol ume] in Blood by Automated count 150-450 [facility] Potassium [Moles/volume] in Serum or PlasmaOrdered By: Daniel Garza on 12-14-2024 Potassium [Moles/Vol] Potassium [Moles/volume] in Serum or Plasma 3.5-5.1 [facility] Protein [Mass/volume] in Ser um or PlasmaOrdered By: Daniel Garza on 12-14-2024 Protein [Mass/Vol] Protein [Mass/volume ] in Serum or Plasma 6.4-8.9 [facility] RBC Auto (Bld) [#/Vol]Ordere d By: Daniel Garza on 12-14-2024 RBC (Bld) [#/Vol] Erythrocytes [#/volume] in Blood by Automated count 3.60-5.00 [facility] Serum or plasma albumin/glob ulin mass ratioOrdered By: Daniel Garza on 12-14-2024 Albumin/Globulin [Mass ratio] Serum or plasma albumin/globulin mass ratio [facility] Serum or plasma anion gap de terminationOrdered By: Daniel Garza on 12-14-2024 Anion gap [Moles/Vol] Serum or plasma an ion gap determination 6.0-15.0 [facility] Sodium [Moles/volume] in Ser um or PlasmaOrdered By: Daniel Garza on 12-14-2024 Sodium [Moles/Vol] Sodium [Moles/volume ] in Serum or Plasma Low 136-145 [facility] Urea nitrogen [Mass/volume] in Serum or PlasmaOrdered By: Daniel Garza on 12-14-2024 Urea nitrogen [Mass/Vol] Urea nitrogen [Mass/volume] in Serum or Plasma 7-25 [facility] WBC Auto (Bld) [#/Vol]Ordere d By: Daniel Garza on 12-14-2024 WBC (Bld) [#/Vol] Leukocytes [#/volume ] in Blood by Automated count 3.8-11.6 [facility] Complete Blood Count Auto Di ffon 12-13-2024 Basophils (Bld) [#/Vol] 0.0 10*3/uL Normal 0.0-0.2 [facility] Comment on above: Result Comment: PERF ORMED BY: [facility] [address] [address] PATHOLOGIST SENIOR RESEARCH ENGINEER MANDY ACUÑA M.D. Performed By: #### C BC, CMP ####[place] [id number] [facility] Basophils/100 WBC (Bld) 0.1 % Normal . T abilio [facility] Comment on above: Performed By: #### C BC, CMP ####[place] [id number] [facility] Eosinophils (Bld) [#/Vol] 0.0 10*3/uL Normal 0.0-0.45 [facility] Comment on above: Performed By: #### C BC, CMP ####[place] [id number] [facility] Eosinophils/100 WBC (Bld) 0.0 % Normal . [facility] Comment on above: Performed By: #### C JOBY, CMP ####[address] Erythrocyte distribution width (RBC) [Ratio] 15.4 % High 11.9-15.3 [facility] Comment on above: Performed By: #### C JOBY, CMP ####[address] Hematocrit (Bld) [Volume fraction] 40.5 % Normal 34.0-46.4 [facility] Comment on above: Performed By: #### C JOBY, CMP ####[address] Hemoglobin (Bld) [Mass/Vol] 13.4 g/dL Normal 11.8-15.4 [facility] Comment on above: Performed By: #### C BC, CMP ####[address] Lymphocytes (Bld) [#/Vol] 0.7 10*3/uL Low 1.00-4.8 [facility] Comment on above: Performed By: #### C BC, CMP ####[place] [id number] [facility] Lymphocytes/100 WBC (Bld) 6.4 % Normal . [facility] Comment on above: Performed By: #### C BC, CMP ####[address] MCH (RBC) [Entitic mass] 28.5 pg Normal 24.7-34.3 [facility] Comment on above: Performed By: #### C JOBY, CMP ####[address] MCV (RBC) [Entitic vol] 86.4 fL Normal 80-100 [facility] Comment on above: Performed By: #### C JOBY, CMP ####[address] Mean Corpuscular HGB Conc 33.0 g/dL Normal 32.0-35.0 [facility] Comment on above: Performed By: #### C JOBY, CMP ####[address] Monocytes (Bld) [#/Vol] 0.7 10*3/uL Normal 0.0-0.8 [facility] Comment on above: Performed By: #### C JOBY, CMP ####[address] Monocytes/100 WBC (Bld) 6.5 % Normal . [facility] Comment on above: Performed By: #### C JOBY, CMP ####[address] Neutrophils (Bld) [#/Vol] 9.3 10*3/uL High 1.8-7.7 [facility] Comment on above: Performed By: #### C JOBY, CMP ####[address] Neutrophils/100 WBC (Bld) 87.0 % Normal . [facility] Comment on above: Performed By: #### C JOBY, CMP ####[address] NRBC% 0.1 /100{WBC} Normal 0-0.5 [facility] Comment on above: Performed By: #### C JOBY, CMP ####[place] [id number] [facility] Platelet mean volume (Bld) [Entitic vol] 7.3 fL Normal 6.3-10.7 [facility] Comment on above: Performed By: #### C BC, CMP ####[place] [id number] [facility] Platelets (Bld) [#/Vol] 302 10*3/uL Normal 150-450 [facility] Comment on above: Performed By: #### C BC, CMP ####[place] [id number] [facility] RBC (Bld) [#/Vol] 4.68 10*6/uL Normal 3.60-5.00 [facility] Comment on above: Performed By: #### C BC, CMP ####[place] [id number] [facility] WBC (Bld) [#/Vol] 10.6 10*3/uL Normal 3.8-11.6 [facility] Comment on above: Performed By: #### C BC, CMP ####[address] [address] [facility] Comprehensive Metabolic Pane ana 12-13-2024 Albumin [Mass/Vol] 3.8 g/dL Normal 3.5-5.7 [facility] Comment on above: Performed By: #### C BC, CMP ####[place] [id number] [facility] Albumin/Globulin [Mass ratio] 1.2 {ratio} Normal [facility] Comment on above: Performed By: #### C BC, CMP ####[place] [id number] [facility] ALP [Catalytic activity/Vol] 84 U/L Normal 34-104 [facility] Comment on above: Performed By: #### C BC, CMP ####[place] [id number] [facility] ALT [Catalytic activity/Vol] 65 U/L High 7-52 [facility] Comment on above: Performed By: #### C BC, CMP ####[address] [address] [facility] Anion gap [Moles/Vol] 14.3 mmol/L Normal 6.0-15.0 Th e [facility] Comment on above: Performed By: #### C BC, CMP ####[address] [address] [facility] AST [Catalytic activity/Vol] 38 U/L Normal 13-39 [facility] Comment on above: Performed By: #### C JOBY, CMP ####[address] [address] [facility] Bilirubin [Mass/Vol] 0.5 mg/dL Normal 0.3-1.0 [facility] Comment on above: Performed By: #### C JOBY, CMP ####[place] [id number] [facility] Calcium [Mass/Vol] 8.9 mg/dL Normal 8.6-10.3 [facility] Comment on above: Performed By: #### C JOBY, CMP ####[place] [id number] [facility] Chloride [Moles/Vol] 95 mmol/L Low 98-107 [facility] Comment on above: Performed By: #### C JOBY, CMP ####[place] [id number] [facility] CO2 [Moles/Vol] 30.8 mmol/L Normal 21.0-31.0 [facility] Comment on above: Performed By: #### C JOBY, CMP ####[place] [id number] [facility] Creatinine [Mass/Vol] 0.99 mg/dL Normal 0.60-1.20 [facility] Comment on above: Performed By: #### C BC, CMP ####[place] [id number] [facility] Creatinine Clr Calc Pharmacy 54.42 Normal [facility] Comment on above: Result Comment: PERF ORMED BY: [facility] [address] [place] [id number] PATHOLOGIST SENIOR RESEARCH ENGINEER MANDY ACUÑA M.D. Performed By: #### C BC, CMP ####[place] [id number] [facility] GFR/1.73 sq M.predicted MDRD (S/P/Bld) [Vol rate/Area] mL/min/{1.73_m2} Normal [facility] Comment on above: Performed By: #### C BC, CMP ####[place] [id number] [facility] Globulin (S) [Mass/Vol] 3.1 g/dL Normal T he [facility] Comment on above: Performed By: #### C BC, CMP ####[place] [id number] [facility] Glucose [Mass/Vol] 97 mg/dL Normal 70-100 [facility] Comment on above: Result Comment: [place] Glucose Reference Range is dependent on time and content of last meal. Glucose of more than 200 mg/dL in a nonstressed, ambulatory subject supports the diagnosis of Diabetes Mellitus. ADA recommended reference range Performed By: #### C BC, CMP ####[place] [id number] [facility] Potassium [Moles/Vol] 4.1 mmol/L Normal 3.5-5.1 [facility] Comment on above: Performed By: #### C BC, CMP ####[place] [id number] [facility] Protein [Mass/Vol] 6.9 g/dL Normal 6.4-8.9 [facility] Comment on above: Performed By: #### C BC, CMP ####[address] [address] [facility] Sodium [Moles/Vol] 136 mmol/L Normal 136-145 [facility] Comment on above: Performed By: #### C BC, CMP ####[place] [id number] [facility] Urea nitrogen [Mass/Vol] 22 mg/dL Normal 7-25 [facility] Comment on above: Performed By: #### C BC, CMP ####[facility] [address] [place] [id number] [facility] Glucose Poct Glucometerson 0 12-13-2024 Commemt1 Glu2: Cleaned Meter Normal [facility] Comment on above: Result Comment: PERF ORMED BY: [facility] [address] [place] [id number] PATHOLOGIST SENIOR RESEARCH ENGINEER MANDY ACUÑA M.D. Performed By: #### G LULS ####Point of Care testing, Glucose [Mass/Vol] 277 mg/dL Normal [facility] Comment on above: Result Comment: [place] om Glucose Reference Range is dependent on time and content of last meal. Glucose of more than 200 mg/dL in a nonstressed, ambulatory subject supports the diagnosis of Diabetes Mellitus. Performed By: #### G LULS ####Point of Care testing, Glucose [Mass/Vol] 141 mg/dL Normal [facility] Comment on above: Result Comment: [place] om Glucose Reference Range is dependent on time and content of last meal. Glucose of more than 200 mg/dL in a nonstressed, ambulatory subject supports the diagnosis of Diabetes Mellitus. PERFORMED BY: [facility] [address] [place] [id number] PATHOLOGIST SENIOR RESEARCH ENGINEER MANDY ACUÑA M.D. Performed By: #### G LULS ####Point of Care testing, Glucose [Mass/Vol] 150 mg/dL Normal [facility] Comment on above: Result Comment: [place] om Glucose Reference Range is dependent on time and content of last meal. Glucose of more than 200 mg/dL in a nonstressed, ambulatory subject supports the diagnosis of Diabetes Mellitus. PERFORMED BY: [facility] [address] [place] [id number] PATHOLOGIST SENIOR RESEARCH ENGINEER MANDY ACUÑA M.D. Performed By: #### G LULS #### Point of Care testing , Glucose [Mass/Vol] 117 mg/dL Normal [facility] Comment on above: Result Comment: [place] om Glucose Reference Range is dependent on time and content of last meal. Glucose of more than 200 mg/dL in a nonstressed, ambulatory subject supports the diagnosis of Diabetes Mellitus. PERFORMED BY: [facility] [address] [place] [address] PATHOLOGIST SENIOR RESEARCH ENGINEER MANDY ACUÑA M.D. Performed By: #### G LULS ####Point of Care testing, No Panel InformationOrdered By: Daniel Garza on 12-13-2024 Bedside Glucose Comment Glu2: cleaned meter [facility] Complete Blood Count Auto Di ffon 12-12-2024 Basophils (Bld) [#/Vol] 0.0 10*3/uL Normal 0.0-0.2 [facility] Comment on above: Result Comment: PERF ORMED BY: [facility] [address] [place], [place] [address] PATHOLOGIST SENIOR RESEARCH ENGINEER MANDY ACUÑA M.D. Performed By: #### A BG #### Point of Care testing , Basophils/100 WBC (Bld) 0.0 % Normal . T he [facility] Comment on above: Performed By: #### A BG #### Point of Care testing , Eosinophils (Bld) [#/Vol] 0.0 10*3/uL Normal 0.0-0.45 [facility] Comment on above: Performed By: #### A BG #### Point of Care testing , Eosinophils/100 WBC (Bld) 0.0 % Normal . The [facility] Comment on above: Performed By: #### A BG #### Point of Care testing , Erythrocyte distribution width (RBC) [Ratio] 15.8 % High 11.9-15.3 [facility] Comment on above: Performed By: #### A BG #### Point of Care testing , Hematocrit (Bld) [Volume fraction] 34.5 % Normal 34.0-46.4 [facility] Comment on above: Performed By: #### A BG #### Point of Care testing , Hemoglobin (Bld) [Mass/Vol] 11.3 g/dL Low 11.8-15.4 [facility] Comment on above: Performed By: #### A BG #### Point of Care testing , Lymphocytes (Bld) [#/Vol] 0.3 10*3/uL Low 1.00-4.8 [facility] Comment on above: Performed By: #### A BG #### Point of Care testing , Lymphocytes/100 WBC (Bld) 2.2 % Normal . The [facility] Comment on above: Performed By: #### A BG #### Point of Care testing , MCH (RBC) [Entitic mass] 28.0 pg Normal 24.7-34.3 [facility] Comment on above: Performed By: #### A BG #### Point of Care testing , MCV (RBC) [Entitic vol] 85.4 fL Normal 80-100 [facility] Comment on above: Performed By: #### A BG #### Point of Care testing , Mean Corpuscular HGB Conc 32.8 g/dL Normal 32.0-35.0 [facility] Comment on above: Performed By: #### A BG #### Point of Care testing , Monocytes (Bld) [#/Vol] 0.6 10*3/uL Normal 0.0-0.8 The [facility] Comment on above: Performed By: #### A BG #### Point of Care testing , Monocytes/100 WBC (Bld) 4.8 % Normal . [facility] Comment on above: Performed By: #### A BG #### Point of Care testing , Neutrophils (Bld) [#/Vol] 10.8 10*3/uL High 1.8-7.7 [facility] Comment on above: Performed By: #### A BG #### Point of Care testing , Neutrophils/100 WBC (Bld) 93.0 % Normal . [facility] Comment on above: Performed By: #### A BG #### Point of Care testing , NRBC% 0.0 /100{WBC} Normal 0-0.5 [facility] Comment on above: Performed By: #### A BG #### Point of Care testing , Platelet mean volume (Bld) [Entitic vol] 7.4 fL Normal 6.3-10.7 [facility] Comment on above: Performed By: #### A BG #### Point of Care testing , Platelets (Bld) [#/Vol] 282 10*3/uL Normal 150-450 [facility] Comment on above: Performed By: #### A BG #### Point of Care testing , RBC (Bld) [#/Vol] 4.04 10*6/uL Normal 3.60-5.00 [facility] Comment on above: Performed By: #### A BG #### Point of Care testing , WBC (Bld) [#/Vol] 11.6 10*3/uL Normal 3.8-11.6 [facility] Comment on above: Performed By: #### A BG #### Point of Care testing , Comprehensive Metabolic Pane ana 12-12-2024 Albumin [Mass/Vol] 3.6 g/dL Normal 3.5-5.7 [facility] Comment on above: Performed By: #### P HOS, CMP ####[address] Albumin/Globulin [Mass ratio] 1.3 {ratio} Normal The [facility] Comment on above: Performed By: #### P HOS, CMP ####[place] [id number] [facility] ALP [Catalytic activity/Vol] 72 U/L Normal 34-104 The [facility] Comment on above: Performed By: #### P HOS, CMP ####[place] [id number] [facility] ALT [Catalytic activity/Vol] 67 U/L High 7-52 The [facility] Comment on above: Performed By: #### P HOS, CMP ####[place] [id number] [facility] Anion gap [Moles/Vol] 12.5 mmol/L Normal 6.0-15.0 Th e [facility] Comment on above: Performed By: #### P HOS, CMP ####[place] [id number] [facility] AST [Catalytic activity/Vol] 41 U/L High 13-39 The [facility] Comment on above: Performed By: #### P HOS, CMP ####[address] Bilirubin [Mass/Vol] 0.4 mg/dL Normal 0.3-1.0 The [facility] Comment on above: Performed By: #### P HOS, CMP ####[address] Calcium [Mass/Vol] 8.3 mg/dL Low 8.6-10.3 The [facility] Comment on above: Performed By: #### P HOS, CMP ####[address] Chloride [Moles/Vol] 101 mmol/L Normal 98-107 The [facility] Comment on above: Performed By: #### P HOS, CMP ####[address] CO2 [Moles/Vol] 29.2 mmol/L Normal 21.0-31.0 The [facility] Comment on above: Performed By: #### P HOS, CMP ####[address] Creatinine [Mass/Vol] 0.65 mg/dL Normal 0.60-1.20 The [facility] Comment on above: Performed By: #### P HOS, CMP ####[address] Creatinine Clr Calc Pharmacy 67.88 Normal The [facility] Comment on above: Performed By: #### P HOS, CMP ####[place] [id number] [facility] GFR/1.73 sq M.predicted MDRD (S/P/Bld) [Vol rate/Area] mL/min/{1.73_m2} Normal The [facility] Comment on above: Performed By: #### P HOS, CMP ####[place] [id number] [facility] Globulin (S) [Mass/Vol] 2.7 g/dL Normal T he [facility] Comment on above: Performed By: #### P HOS, CMP ####[address] [address] [facility] Glucose [Mass/Vol] 123 mg/dL High 70-100 The [facility] Comment on above: Result Comment: [facility] Glucose Reference Range is dependent on time and content of last meal. Glucose of more than 200 mg/dL in a nonstressed, ambulatory subject supports the diagnosis of Diabetes Mellitus. ADA recommended reference range Performed By: #### P HOS, CMP ####[place] [id number] [facility] Potassium [Moles/Vol] 3.7 mmol/L Normal 3.5-5.1 The [facility] Comment on above: Performed By: #### P HOS, CMP ####[place] [id number] [facility] Protein [Mass/Vol] 6.3 g/dL Low 6.4-8.9 The [facility] Comment on above: Performed By: #### P HOS, CMP ####[place] [id number] [facility] Sodium [Moles/Vol] 139 mmol/L Normal 136-145 The [facility] Comment on above: Performed By: #### P HOS, CMP ####[place] [id number] [facility] Urea nitrogen [Mass/Vol] 16 mg/dL Normal 7-25 The [facility] Comment on above: Performed By: #### P HOS, CMP ####[place] [id number] [facility] Glucose Poct Glucometerson 0 12-12-2024 Commemt1 Glu2: Cleaned Meter Normal The [facility] Comment on above: Result Comment: PERF ORMED BY: [facility] [address] [place] [id number] PATHOLOGIST SENIOR RESEARCH ENGINEER MANDY ACUÑA M.D. Performed By: #### G LULS #### Point of Care testing , Glucose [Mass/Vol] 114 mg/dL Normal The [facility] Comment on above: Result Comment: [facility] Glucose Reference Range is dependent on time and content of last meal. Glucose of more than 200 mg/dL in a nonstressed, ambulatory subject supports the diagnosis of Diabetes Mellitus. Performed By: #### G LULS #### Point of Care testing , Glucose [Mass/Vol] 107 mg/dL Normal The [facility] Comment on above: Result Comment: [facility] Glucose Reference Range is dependent on time and content of last meal. Glucose of more than 200 mg/dL in a nonstressed, ambulatory subject supports the diagnosis of Diabetes Mellitus. PERFORMED BY: [address] [place] [address] PATHOLOGIST SENIOR RESEARCH ENGINEER MANDY ACUÑA M.D. Performed By: #### G LULS ####Point of Care testing, Glucose [Mass/Vol] 177 mg/dL Normal The [facility] Comment on above: Result Comment: [facility] Glucose Reference Range is dependent on time and content of last meal. Glucose of more than 200 mg/dL in a nonstressed, ambulatory subject supports the diagnosis of Diabetes Mellitus. PERFORMED BY: [facility] [address] [place] [address] PATHOLOGIST SENIOR RESEARCH ENGINEER MANDY ACUÑA M.D. Performed By: #### G LULS #### Point of Care testing , Glucose [Mass/Vol] 150 mg/dL Normal The [facility] Comment on above: Result Comment: [place] [facility] Glucose Reference Range is dependent on time and content of last meal. Glucose of more than 200 mg/dL in a nonstressed, ambulatory subject supports the diagnosis of Diabetes Mellitus. PERFORMED BY: [facility] [address] [place] [address] PATHOLOGIST SENIOR RESEARCH ENGINEER MANDY ACUÑA M.D. Performed By: #### G LULS #### Point of Care testing , Phosphate [Mass/volume] in S idris or PlasmaOrdered By: Daniel Garza on 12-12-2024 Phosphate [Mass/Vol] Phosphate [Mass/volume] in Serum or Plasma Low 2.5-4.5 [facility] Phosphoruson 12-12-2024 Phosphate [Mass/Vol] 2.0 mg/dL Low 2.5-4.5 The [facility] Comment on above: Result Comment: PERF ORMED BY: [facility] [address] [place] [address] PATHOLOGIST SENIOR RESEARCH ENGINEER MANDY ACUÑA M.D. Performed By: #### P HOS, CMP ####[facility] [address] [place] [address] [facility] Arterial Blood Gason 025 ABG Base Excess -3.0 mmol/L Normal -3.0-3.0 The [facility] Comment on above: Performed By: #### A BG #### Point of Care testing , ABG Frac Inspired O2 55 % Normal The [facility] Comment on above: Performed By: #### A BG #### Point of Care testing , ABG Oxygen Content 6.9 mmol/L Normal 6.6-9.7 The [facility] Comment on above: Performed By: #### A BG #### Point of Care testing , ABG Oxygen Saturation 98.1 % Normal 95.0-100.0 The [facility] Comment on above: Performed By: #### A BG #### Point of Care testing , ABG PCO2 40.3 mm[Hg] Normal 35.0-45.0 The [facility] Comment on above: Performed By: #### A BG #### Point of Care testing , ABG PEEP 8 cmH20 Normal The [facility] Comment on above: Performed By: #### A BG #### Point of Care testing , ABG PH 7.36 Normal 7.35-7.45 The [facility] Comment on above: Performed By: #### A BG #### Point of Care testing , ABG PO2 126.0 mm[Hg] Off scale high 80.0-100.0 The [facility] Comment on above: Performed By: #### A BG #### Point of Care testing , ABG TV 420 mL Normal The [facility] Comment on above: Performed By: #### A BG #### Point of Care testing , Respiratory Critical Normal The [facility] Comment on above: Result Comment: Crit ical Value called on: 12/11/2024 at 04:26 PERFORMED BY: [facility] [address] [place] [address] PATHOLOGIST SENIOR RESEARCH ENGINEER MANDY ACUÑA M.D. Performed By: #### A BG #### Point of Care testing , Set Respiratory Rate 18 Normal The [facility] Comment on above: Performed By: #### A BG #### Point of Care testing , VBG Draw Site Left Radial Normal The [facility] Comment on above: Performed By: #### A BG #### Point of Care testing , Ventilator Mode AC Normal [facility] Comment on above: Performed By: #### A BG #### Point of Care testing , Arterial Blood GasOrdered By : Daniel Garza on 12-11-2024 CO2 [Moles/Vol] 23.4 mmol/L Normal 23.0-27.0 [facility] Comment on above: Performed By: #### A BG #### Point of Care testing , HCO3 (Bld) [Moles/Vol] 22.2 mmol/L Low 23.0-29.0 [facility] Comment on above: Performed By: #### A BG #### Point of Care testing , Complete Blood Count Auto Di ffon 12-11-2024 Basophils (Bld) [#/Vol] 0.1 10*3/uL Normal 0.0-0.2 [facility] Comment on above: Result Comment: PERF ORMED BY: [facility] [address] [place] [address] PATHOLOGIST SENIOR RESEARCH ENGINEER MANDY ACUÑA M.D. Performed By: #### G LULS #### Point of Care testing , Basophils/100 WBC (Bld) 0.4 % Normal . T he [facility] Comment on above: Performed By: #### G LULS #### Point of Care testing , Eosinophils (Bld) [#/Vol] 0.0 10*3/uL Normal 0.0-0.45 [facility] Comment on above: Performed By: #### G LULS #### Point of Care testing , Eosinophils/100 WBC (Bld) 0.0 % Normal . [facility] Comment on above: Performed By: #### G LULS #### Point of Care testing , Erythrocyte distribution width (RBC) [Ratio] 16.3 % High 11.9-15.3 [facility] Comment on above: Performed By: #### G LULS #### Point of Care testing , Hematocrit (Bld) [Volume fraction] 32.9 % Low 34.0-46.4 [facility] Comment on above: Performed By: #### G LULS #### Point of Care testing , Hemoglobin (Bld) [Mass/Vol] 10.8 g/dL Low 11.8-15.4 [facility] Comment on above: Performed By: #### G LULS #### Point of Care testing , Lymphocytes (Bld) [#/Vol] 0.3 10*3/uL Low 1.00-4.8 [facility] Comment on above: Performed By: #### G LULS #### Point of Care testing , Lymphocytes/100 WBC (Bld) 1.7 % Normal . [facility] Comment on above: Performed By: #### G LULS #### Point of Care testing , MCH (RBC) [Entitic mass] 28.9 pg Normal 24.7-34.3 [facility] Comment on above: Performed By: #### G LULS #### Point of Care testing , MCV (RBC) [Entitic vol] 87.9 fL Normal 80-100 T he [facility] Comment on above: Performed By: #### G LULS #### Point of Care testing , Mean Corpuscular HGB Conc 32.9 g/dL Normal 32.0-35.0 [facility] Comment on above: Performed By: #### G LULS #### Point of Care testing , Monocytes (Bld) [#/Vol] 0.5 10*3/uL Normal 0.0-0.8 [facility] Comment on above: Performed By: #### G LULS #### Point of Care testing , Monocytes/100 WBC (Bld) 3.4 % Normal . T he [facility] Comment on above: Performed By: #### G LULS #### Point of Care testing , Neutrophils (Bld) [#/Vol] 14.5 10*3/uL High 1.8-7.7 [facility] Comment on above: Performed By: #### G LULS #### Point of Care testing , Neutrophils/100 WBC (Bld) 94.5 % Normal . [facility] Comment on above: Performed By: #### G LULS #### Point of Care testing , NRBC% 0.0 /100{WBC} Normal 0-0.5 [facility] Comment on above: Performed By: #### G LULS #### Point of Care testing , Platelet mean volume (Bld) [Entitic vol] 7.2 fL Normal 6.3-10.7 [facility] Comment on above: Performed By: #### G LULS #### Point of Care testing , Platelets (Bld) [#/Vol] 244 10*3/uL Normal 150-450 [facility] Comment on above: Performed By: #### G LULS #### Point of Care testing , RBC (Bld) [#/Vol] 3.74 10*6/uL Normal 3.60-5.00 [facility] Comment on above: Performed By: #### G LULS #### Point of Care testing , WBC (Bld) [#/Vol] 15.4 10*3/uL High 3.8-11.6 [facility] Comment on above: Performed By: #### G LULS #### Point of Care testing , Comprehensive Metabolic Pane ana 12-11-2024 Albumin [Mass/Vol] 3.4 g/dL Low 3.5-5.7 [facility] Comment on above: Performed By: #### G LULS #### Point of Care testing , Albumin/Globulin [Mass ratio] 1.6 {ratio} Normal [facility] Comment on above: Performed By: #### G LULS #### Point of Care testing , ALP [Catalytic activity/Vol] 69 U/L Normal 34-104 [facility] Comment on above: Performed By: #### G LULS #### Point of Care testing , ALT [Catalytic activity/Vol] 76 U/L High 7-52 [facility] Comment on above: Performed By: #### G LULS #### Point of Care testing , Anion gap [Moles/Vol] 11.6 mmol/L Normal 6.0-15.0 Th e [facility] Comment on above: Performed By: #### G LULS #### Point of Care testing , AST [Catalytic activity/Vol] 49 U/L High 13-39 [facility] Comment on above: Performed By: #### G LULS #### Point of Care testing , Bilirubin [Mass/Vol] 0.4 mg/dL Normal 0.3-1.0 [facility] Comment on above: Performed By: #### G LULS #### Point of Care testing , Calcium [Mass/Vol] 8.1 mg/dL Low 8.6-10.3 [facility] Comment on above: Performed By: #### G LULS #### Point of Care testing , Chloride [Moles/Vol] 105 mmol/L Normal 98-107 [facility] Comment on above: Performed By: #### G LULS #### Point of Care testing , CO2 [Moles/Vol] 23.7 mmol/L Normal 21.0-31.0 [facility] Comment on above: Performed By: #### G LULS #### Point of Care testing , Creatinine [Mass/Vol] 0.74 mg/dL Normal 0.60-1.20 [facility] Comment on above: Performed By: #### G LULS #### Point of Care testing , Creatinine Clr Calc Pharmacy 67.88 Normal [facility] Comment on above: Performed By: #### G LULS #### Point of Care testing , GFR/1.73 sq M.predicted MDRD (S/P/Bld) [Vol rate/Area] mL/min/{1.73_m2} Normal [facility] Comment on above: Performed By: #### G LULS #### Point of Care testing , Globulin (S) [Mass/Vol] 2.1 g/dL Normal T he [facility] Comment on above: Performed By: #### G LULS #### Point of Care testing , Glucose [Mass/Vol] 134 mg/dL High 70-100 [facility] Comment on above: Result Comment: [facility] Glucose Reference Range is dependent on time and content of last meal. Glucose of more than 200 mg/dL in a nonstressed, ambulatory subject supports the diagnosis of Diabetes Mellitus. ADA recommended reference range Performed By: #### G LULS #### Point of Care testing , Potassium [Moles/Vol] 4.3 mmol/L Normal 3.5-5.1 [facility] Comment on above: Performed By: #### G LULS #### Point of Care testing , Protein [Mass/Vol] 5.5 g/dL Low 6.4-8.9 [facility] Comment on above: Performed By: #### G LULS #### Point of Care testing , Sodium [Moles/Vol] 136 mmol/L Significant change down 136-145 [facility] Comment on above: Performed By: #### G LULS #### Point of Care testing , Urea nitrogen [Mass/Vol] 21 mg/dL Normal 7-25 [facility] Comment on above: Performed By: #### G LULS #### Point of Care testing , Glucose Poct Glucometerson 0 12-11-2024 Glucose [Mass/Vol] 132 mg/dL Normal [facility] Comment on above: Result Comment: [facility] Glucose Reference Range is dependent on time and content of last meal. Glucose of more than 200 mg/dL in a nonstressed, ambulatory subject supports the diagnosis of Diabetes Mellitus. PERFORMED BY: [place] [address] [place] [address] PATHOLOGIST SENIOR RESEARCH ENGINEER MANDY ACUÑA M.D. Performed By: #### G LULS #### Point of Care testing , Glucose [Mass/Vol] 123 mg/dL Normal [facility] Comment on above: Result Comment: [facility] Glucose Reference Range is dependent on time and content of last meal. Glucose of more than 200 mg/dL in a nonstressed, ambulatory subject supports the diagnosis of Diabetes Mellitus. PERFORMED BY: [facility] [address] [place] [address] PATHOLOGIST SENIOR RESEARCH ENGINEER MANDY ACUÑA M.D. Performed By: #### A BG #### Point of Care testing , Magnesiumon 12-11-2024 Magnesium [Mass/Vol] 2.3 mg/dL Normal 1.9-2.7 [facility] Comment on above: Result Comment: PERF ORMED BY: [facility] [address] [place] [address] PATHOLOGIST SENIOR RESEARCH ENGINEER MANDY ACUÑA M.D. Performed By: #### G LULS #### Point of Care testing , Magnesium [Mass/volume] in S idris or PlasmaOrdered By: Daniel Garza on 12-11-2024 Magnesium [Mass/Vol] Magnesium [Mass/volume] in Serum or Plasma 1.9-2.7 [facility] No Panel InformationOrdered By: Daniel Garza on 12-11-2024 Arterial Blood Base Excess -3.0 mmol/L -3.0-3.0 [facility] Arterial Blood Oxygen Content 6.9 mmol/L 6.6-9.7 [facility] Arterial Blood Oxygen Saturation 98.1 % 95.0-100.0 [facility] Arterial Blood Partial Pressure CO2 40.3 mm[Hg] 35.0-45.0 [facility] Arterial Blood Partial Pressure O2 126.0 mm[Hg] Critically high 80.0-100.0 [facility] Arterial Blood pH 7.36 7.35-7.45 [facility] Blood Gas Critical Value See comment [facility] Comment on above: Critical Value hope d on: 12/11/2024 at 04:26 Blood Gas PEEP 8 cmH2O [facility] Blood Gas Sample Site Left radial Fi [facility] Blood Gas Set Respiration Rate 18 [facility] Blood Gas Tidal Volume 420 mL Fi [facility] Blood Gas Ventilator Mode Ac [facility] FiO2 55 % [facility] Phosphoruson 12-11-2024 Phosphate [Mass/Vol] 2.6 mg/dL Normal 2.5-4.5 [facility] Comment on above: Performed By: #### G LULS #### Point of Care testing , Triglyceride [Mass/volume] i n Serum or PlasmaOrdered By: Soco Beasley on 12-11-2024 Triglyceride [Mass/Vol] Triglyceride [Mass/volume] in Serum or Plasma High 35-149 [facility] Comment on above: TRIG ATP III CLASSIF ICATIONTRIG less than 150 mg/dL NormalTRIG 150-199 mg/dL Borderline highTRIG 200-500 mg/dL High TRIG greater than 500 mg/dL Very highStandard traceable to the Center for Disease Conrtrol and Prevention (CDC) test method. Triglycerideson 12-11-2024 Triglyceride [Mass/Vol] 158 mg/dL High 35-149 T [facility] Comment on above: Result Comment: TRIG ATP III CLASSIFICATION TRIG less than 150 mg/dL Normal TRIG 150-199 mg/dL Borderline high TRIG 200-500 mg/dL High TRIG greater than 500 mg/dL Very high Standard traceable to the Center for Disease Conrtrol and Prevention (CDC) test method. PERFORMED BY: [place] [address] PATHOLOGIST SENIOR RESEARCH ENGINEER MANDY ACUÑA M.D. Performed By: #### T RIG #### [address] X-ray reportOrdered By: Roman Ugalde on 12-11-2024 Study report [facility] [place] [address] XRay Report Signed Patient: Zuleyka Chaudhry MR#: [id number] : 1955 Acct:[id number] Age/Sex: 69 / F ADM Date: 5 Loc: Room: [address] [place] [address] Type: ADM IN Attending Dr: Daniel Garza MD Copies to: MD Soco Cruz MD~ Ordering Provider: Soco Beasley MD Date of Service: 12/11/24 XR/XR chest 1V portable: intubated SINGLE VIEW CHEST CLINICAL HISTORY: Ventilator care. COMPARISON: Chest 12/10/2024 FINDINGS: Enteric tube tip below the level of the diaphragm. ET tube in satisfactory position. Heart appears normal in size. Bibasilar atelectasis/interstit ial changes persist. No consolidation pneumothorax pleural effusion or free air. XR/XR chest 1V portable IMPRESSION: NO STUDY CHANGE IN CHEST FINDINGS. Impression dictated by: Ryan Ugalde Jr., D.O.12/11/2024 8:33 AM Dictation Location: RADIO-PC-22 Transcribed By: PWS 12/11/24832 Dictated By: Ryan Ugalde Jr DO 12/11/24831 Signed By: 12/11/[address] [place] [address] XR chest 1V portableon 12-11 XR chest 1V portable [facility] [place] [address] [place] [address] XRay Report Signed Patient: Zuleyka Chaudhry MR#: [id number] 27 : 1955 Acct:[id number] Age/Sex: 69 / F ADM Date: 12/09/24 Loc: Room: [address] [place] [address] Type: ADM IN Attending Dr: Daniel Garza MD Copies to: MD Soco Cruz MD Ordering Provider: Soco Beasley MD Date of Service: 12/11/24 XR/XR chest 1V portable: intubated SINGLE VIEW CHEST CLINICAL HISTORY: Ventilator care. COMPARISON: Chest 12/10/2024 FINDINGS: Enteric tube tip below the level of the diaphragm. ET tube in satisfactory position. Heart appears normal in size. Bibasilar atelectasis/interstit ial changes persist. No consolidation pneumothorax pleural effusion or free air. XR/XR chest 1V portable IMPRESSION: NO STUDY CHANGE IN CHEST FINDINGS. Impression dictated by: Ryan Ugalde Jr., D.O.12/11/2024 8:33 AM Dictation Location: RADIO-PC-22 Transcribed By: [facility] 12/11/2433 Dictated By: Ryan Ugalde Jr, DO 12/11/24831 Signed By: 12/11/[address] [place], [place] [address] Amphetamine Screen Ql (U)Ord ered By: Antonettemayito Ramos on 12-10-2024 Amphetamines Ql (U) Amphetamines screen Negativ e [facility] Arterial Blood Gason 025 ABG Base Excess -2.9 mmol/L Normal -3.0-3.0 [facility] Comment on above: Performed By: #### A BG #### Point of Care testing , ABG Frac Inspired O2 50 % Normal [facility] Comment on above: Performed By: #### A BG #### Point of Care testing , ABG Oxygen Content 6.8 mmol/L Normal 6.6-9.7 [facility] Comment on above: Performed By: #### A BG #### Point of Care testing , ABG Oxygen Saturation 97.3 % Normal 95.0-100.0 [facility] Comment on above: Performed By: #### A BG #### Point of Care testing , ABG PCO2 42.7 mm[Hg] Normal 35.0-45.0 [facility] Comment on above: Performed By: #### A BG #### Point of Care testing , ABG PEEP 5 cmH20 Normal [facility] Comment on above: Performed By: #### A BG #### Point of Care testing , ABG PH 7.34 Low 7.35-7.45 [facility] Comment on above: Performed By: #### A BG #### Point of Care testing , ABG PO2 99.2 mm[Hg] Normal 80.0-100.0 [facility] Comment on above: Performed By: #### A BG #### Point of Care testing , ABG TV 450 mL Normal [facility] Comment on above: Performed By: #### A BG #### Point of Care testing , CO2 [Moles/Vol] 24.0 mmol/L Normal 23.0-27.0 [facility] Comment on above: Performed By: #### A BG #### Point of Care testing , HCO3 (Bld) [Moles/Vol] 22.7 mmol/L Low 23.0-29.0 Sukhwinder knox [facility] Comment on above: Performed By: #### A BG #### Point of Care testing , Respiratory Critical Normal [facility] Comment on above: Result Comment: Neftalyt ical Value called on: 12/10/2024 at 06:05 PERFORMED BY: [facility] [place] [address] PATHOLOGIST SENIOR RESEARCH ENGINEER MANDY ACUÑA M.D. Performed By: #### A BG #### Point of Care testing , Set Respiratory Rate 18 Normal [facility] Comment on above: Performed By: #### A BG #### Point of Care testing , VBG Draw Site Left Radial Normal [facility] Comment on above: Performed By: #### A BG #### Point of Care testing , Ventilator Mode AC Normal [facility] Comment on above: Performed By: #### A BG #### Point of Care testing , ABG Base Excess -4.9 mmol/L Low -3.0-3.0 [facility] Comment on above: Performed By: #### G LULS #### Point of Care testing , ABG Frac Inspired O2 60 % Normal [facility] Comment on above: Performed By: #### G LULS #### Point of Care testing , ABG Oxygen Content 6.8 mmol/L Normal 6.6-9.7 [facility] Comment on above: Performed By: #### G LULS #### Point of Care testing , ABG Oxygen Saturation 98.2 % Normal 95.0-100.0 [facility] Comment on above: Performed By: #### G LULS #### Point of Care testing , ABG PCO2 47.5 mm[Hg] High 35.0-45.0 [facility] Comment on above: Performed By: #### G LULS #### Point of Care testing , ABG PEEP 5 cmH20 Normal [facility] Comment on above: Performed By: #### G LULS #### Point of Care testing , ABG PH 7.28 Low 7.35-7.45 [facility] Comment on above: Performed By: #### G LULS #### Point of Care testing , ABG PO2 140.9 mm[Hg] Off scale high 80.0-100.0 [facility] Comment on above: Performed By: #### G LULS #### Point of Care testing , ABG TV 500 mL Normal [facility] Comment on above: Performed By: #### G LULS #### Point of Care testing , CO2 [Moles/Vol] 23.3 mmol/L Normal 23.0-27.0 [facility] Comment on above: Performed By: #### G LULS #### Point of Care testing , HCO3 (Bld) [Moles/Vol] 21.8 mmol/L Low 23.0-29.0 T he [facility] Comment on above: Performed By: #### G LULS #### Point of Care testing , Respiratory Critical Normal [facility] Comment on above: Result Comment: Crit ical Value called on: 12/10/2024 at 00:12 PERFORMED BY: [facility] [address] [place] [address] PATHOLOGIST SENIOR RESEARCH ENGINEER MANDY ACUÑA M.D. Performed By: #### G LULS #### Point of Care testing , Set Respiratory Rate 18 Normal [facility] Comment on above: Performed By: #### G LULS #### Point of Care testing , VBG Draw Site Right Radial Normal [facility] Comment on above: Performed By: #### G LULS #### Point of Care testing , Ventilator Mode AC Normal [facility] Comment on above: Performed By: #### G LULS #### Point of Care testing , Barbiturates [Presence] in U rine by Screen methodOrdered By: Soco Beasley on 12-10-2024 Barbiturates Screen Ql (U) Barbiturates [Presence] in Urine by Screen method Negative [facility] Benzodiazepines Screen Ql (U )Ordered By: Soco Beasley on 12-10-2024 Benzodiazepines Ql (U) Benzodiazepines [Presence] in Urine by Screen method High Negative [facility] Benzoylecgonine [Presence] i n Urine by Screen methodOrdered By: Soco Beasley on 12-10-2024 Benzoylecgonine Screen Ql (U) Benzoylecgonine [Presence] in Urine by Screen method Negative [facility] Cannabinoids [Presence] in U rine by Screen methodOrdered By: Soco Beasley on 12-10-2024 Cannabinoids Screen Ql (U) Cannabinoids [Presence] in Urine by Screen method Negative [facility] Comment on above: These are unconfirme d results and should not be used for legal purposes. Drug Cut-Off Concentration: AMPH 1000 ng/mL MICHAEL 200 ng/mL JAVAN 200 ng/mL COCM 300 ng/mL OP 300 ng/mL PCP 25 ng/mL THC 20 ng/mL Complete Blood Count Auto Di ffon 12-10-2024 Basophils (Bld) [#/Vol] 0.1 10*3/uL Normal 0.0-0.2 [facility] Comment on above: Result Comment: PERF ORMED BY: [facility] [address] [place] [address] PATHOLOGIST SENIOR RESEARCH ENGINEER MANDY ACUÑA M.D. Performed By: #### A BG #### Point of Care testing , Basophils/100 WBC (Bld) 0.5 % Normal . T abilio [facility] Comment on above: Performed By: #### A BG #### Point of Care testing , Eosinophils (Bld) [#/Vol] 0.0 10*3/uL Normal 0.0-0.45 [facility] Comment on above: Performed By: #### A BG #### Point of Care testing , Eosinophils/100 WBC (Bld) 0.0 % Normal . [facility] Comment on above: Performed By: #### A BG #### Point of Care testing , Erythrocyte distribution width (RBC) [Ratio] 15.5 % High 11.9-15.3 [facility] Comment on above: Performed By: #### A BG #### Point of Care testing , Hematocrit (Bld) [Volume fraction] 31.0 % Low 34.0-46.4 [facility] Comment on above: Performed By: #### A BG #### Point of Care testing , Hemoglobin (Bld) [Mass/Vol] 10.1 g/dL Low 11.8-15.4 [facility] Comment on above: Performed By: #### A BG #### Point of Care testing , Lymphocytes (Bld) [#/Vol] 0.2 10*3/uL Low 1.00-4.8 [facility] Comment on above: Performed By: #### A BG #### Point of Care testing , Lymphocytes/100 WBC (Bld) 1.2 % Normal . [facility] Comment on above: Performed By: #### A BG #### Point of Care testing , MCH (RBC) [Entitic mass] 28.4 pg Normal 24.7-34.3 [facility] Comment on above: Performed By: #### A BG #### Point of Care testing , MCV (RBC) [Entitic vol] 86.7 fL Normal 80-100 [facility] Comment on above: Performed By: #### A BG #### Point of Care testing , Mean Corpuscular HGB Conc 32.7 g/dL Normal 32.0-35.0 [facility] Comment on above: Performed By: #### A BG #### Point of Care testing , Monocytes (Bld) [#/Vol] 0.5 10*3/uL Normal 0.0-0.8 [facility] Comment on above: Performed By: #### A BG #### Point of Care testing , Monocytes/100 WBC (Bld) 3.1 % Normal . T [facility] Comment on above: Performed By: #### A BG #### Point of Care testing , Neutrophils (Bld) [#/Vol] 14.4 10*3/uL High 1.8-7.7 [facility] Comment on above: Performed By: #### A BG #### Point of Care testing , Neutrophils/100 WBC (Bld) 95.2 % Normal . [facility] Comment on above: Performed By: #### A BG #### Point of Care testing , NRBC% 0.0 /100{WBC} Normal 0-0.5 [facility] Comment on above: Performed By: #### A BG #### Point of Care testing , Platelet mean volume (Bld) [Entitic vol] 7.0 fL Normal 6.3-10.7 [facility] Comment on above: Performed By: #### A BG #### Point of Care testing , Platelets (Bld) [#/Vol] 236 10*3/uL Normal 150-450 [facility] Comment on above: Performed By: #### A BG #### Point of Care testing , RBC (Bld) [#/Vol] 3.57 10*6/uL Low 3.60-5.00 [facility] Comment on above: Performed By: #### A BG #### Point of Care testing , WBC (Bld) [#/Vol] 15.2 10*3/uL High 3.8-11.6 [facility] Comment on above: Performed By: #### A BG #### Point of Care testing , Comprehensive Metabolic Pane ana 12-10-2024 Albumin [Mass/Vol] 3.4 g/dL Low 3.5-5.7 [facility] Comment on above: Performed By: #### A BG #### Point of Care testing , Albumin/Globulin [Mass ratio] 1.5 {ratio} Normal [facility] Comment on above: Performed By: #### A BG #### Point of Care testing , ALP [Catalytic activity/Vol] 69 U/L Normal 34-104 [facility] Comment on above: Performed By: #### A BG #### Point of Care testing , ALT [Catalytic activity/Vol] 71 U/L High 7-52 [facility] Comment on above: Performed By: #### A BG #### Point of Care testing , Anion gap [Moles/Vol] 10.3 mmol/L Normal 6.0-15.0 Th e [facility] Comment on above: Performed By: #### A BG #### Point of Care testing , AST [Catalytic activity/Vol] 50 U/L High 13-39 [facility] Comment on above: Performed By: #### A BG #### Point of Care testing , Bilirubin [Mass/Vol] 0.4 mg/dL Normal 0.3-1.0 [facility] Comment on above: Performed By: #### A BG #### Point of Care testing , Calcium [Mass/Vol] 7.0 mg/dL Low 8.6-10.3 [facility] Comment on above: Performed By: #### A BG #### Point of Care testing , Chloride [Moles/Vol] 101 mmol/L Normal 98-107 [facility] Comment on above: Performed By: #### A BG #### Point of Care testing , CO2 [Moles/Vol] 22.0 mmol/L Normal 21.0-31.0 [facility] Comment on above: Performed By: #### A BG #### Point of Care testing , Creatinine [Mass/Vol] 0.64 mg/dL Normal 0.60-1.20 [facility] Comment on above: Performed By: #### A BG #### Point of Care testing , Creatinine Clr Calc Pharmacy 69.14 Normal [facility] Comment on above: Performed By: #### A BG #### Point of Care testing , GFR/1.73 sq M.predicted MDRD (S/P/Bld) [Vol rate/Area] mL/min/{1.73_m2} Normal [facility] Comment on above: Performed By: #### A BG #### Point of Care testing , Globulin (S) [Mass/Vol] 2.2 g/dL Normal T he [facility] Comment on above: Performed By: #### A BG #### Point of Care testing , Glucose [Mass/Vol] 151 mg/dL High 70-100 [facility] Comment on above: Result Comment: Rogers Glucose Reference Range is dependent on time and content of last meal. Glucose of more than 200 mg/dL in a nonstressed, ambulatory subject supports the diagnosis of Diabetes Mellitus. ADA recommended reference range Performed By: #### A BG #### Point of Care testing , Potassium [Moles/Vol] 3.3 mmol/L Low 3.5-5.1 [facility] Comment on above: Performed By: #### A BG #### Point of Care testing , Protein [Mass/Vol] 5.6 g/dL Low 6.4-8.9 [facility] Comment on above: Performed By: #### A BG #### Point of Care testing , Sodium [Moles/Vol] 130 mmol/L Low 136-145 [facility] Comment on above: Performed By: #### A BG #### Point of Care testing , Urea nitrogen [Mass/Vol] 14 mg/dL Normal 7-25 [facility] Comment on above: Performed By: #### A BG #### Point of Care testing , Drug Screen,Urineon 12-10-19 Amphetamine Screen,Urine Negative Normal Negative [facility] Comment on above: Performed By: #### U RDS #### [place] [address] [place] Barbiturate Screen,Urine Negative Normal Negative [facility] Comment on above: Performed By: #### U RDS #### [place] [address] [place] Benzodiazepines Screen,Urine Positive High Negative [facility] Comment on above: Performed By: #### U RDS #### [place] [address] [place] Cannabinoid Screen,Urine Negative Normal Negative [facility] Comment on above: Result Comment: Thes e are unconfirmed results and should not be used for legal purposes. Drug Cut-Off Concentration: AMPH 1000 ng/mL MICHAEL 200 ng/mL JAVAN 200 ng/mL COCM 300 ng/mL OP 300 ng/mL PCP 25 ng/mL THC 20 ng/mL PERFORMED BY: [place] [address] PATHOLOGIST SENIOR RESEARCH ENGINEER MANDY ACUÑA M.D. Performed By: #### U RDS #### [place] [address] [place] Cocaine Screen,Urine Negative Normal Negative [facility] Comment on above: Performed By: #### U RDS #### [address] [address] [place] Opiate Screen,Urine Positive High Negative [facility] Comment on above: Performed By: #### U RDS #### [facility] [address] Phencyclidine Screen,Urine Negative Normal Negative [facility] Comment on above: Performed By: #### U RDS #### [facility] [address] echo transthoracicon [facility] echo transthoracic [facility] [place] [address] [place] [address] Echocardiogram Signed Patient: Zuleyka Chaudhry MR#: [id number] 27 : 1955 Acct:[id number] Age/Sex: 69 / F ADM Date: 12/09/24 Loc: Room: [address] [place] [address] Type: ADM IN Attending Dr: Daniel Garza MD Ordering Provider: Krissy Cortez MD Date of Service: 12/10/24 [facility] echo transthoracic: Elevated troponin Copies to: MD Krissy Dow MD BSA: 1.9 m2 BP: 92/55 mmHg HR: 74 Reason For Study: Elevated troponin History: No cardiac history per patient Interpretation Summary Ejection Fraction = 65-70%. The left ventricular size and thickness are normal. The left ventricular wall motion is normal. A variety of Doppler measurements indicate normal left ventricular diastolic function. There is trace tricuspid regurgitation. There is trace mitral regurgitation. There is no comparison study available. Procedure/Quality: A two-dimensional transthoracic echocardiogram with color flow, Doppler and injection of contrast agent Definity was performed. The study was technically suboptimal in quality due to ventilator interference . Left Ventricle: The left ventricular size and thickness are normal. Ejection Fraction = 65-70%. A variety of Doppler measurements indicate normal left ventricular diastolic function. The left ventricular wall motion is normal. Left Atrium: The left atrium appears normal in size. Right Atrium: The right atrium appears normal in size. Prominent eustachian ridge in the RA. Right Ventricle: The right ventricle is not well visualized. Aortic Valve: The aortic valve is normal in structure. No hemodynamically significant valvular aortic stenosis. No aortic regurgitation is present. Mitral Valve: The mitral valve is normal in structure. No significant mitral valve stenosis. There is trace mitral regurgitation. Tricuspid Valve: The tricuspid valve is not well visualized. There is trace tricuspid regurgitation. Inadequate TR to estimate RVSP. Pulmonic Valve: The pulmonic valve is not well visualized. No significant pulmonic regurgitation. Arteries: The aortic root is normal size. Pericardium/Pleura: No pericardial effusion seen. IVC/Hepatic Veins: The IVC is dialted with an abnormal collapsibility index, this suggestive of increased right atrial pressure. Measurements with Normals IVSd: 1.0 cm (0.7-1.1 cm)LVIDd: 4.8 cm (3.7-5.4 cm) LVPWd: 0.90 cm (0.7-1.1 cm)LVIDs: 3.6 cm (2.3-3.6 cm) LA dimension: 3.3 cm (2.3-4.0 cm)Ao root diam: 2.9 cm(2.0-3.6 cm) asc Aorta Diam: 3.0 cm(2.1-3.4cm) Doppler with Normals RVSP(TR): 29.4 mmHg (18-35mmHg) LV V1 max: 95.3 cm/sec (0.7-1.7m/s)MV E max anthony: 65.1 cm/sec(0.8-1.3m/s) MV A max anthony: 92.5 cm/sec(0.0-0.0m/s) MV E/A: 0.70 (<1.5) MMode/2D Measurements Calculations TAPSE: 2.7 cm FS: 25.0 % Ao root area: LVOT diam: 2.0 cm RV S Anthony: EDV(Teich): 6.6 cm2 LVOT area: 3.1 cm2 7.3 cm/sec 107.5 ml ESV(Teich): 54.4 ml EF(Teich): 49.4 % __ LVLd ap4: 6.7 cm SV(MOD-sp4): LAV(MOD-sp4): LA A2 area: 16.0 cm2 EDV(MOD-sp4): 55.1 ml 37.9 ml 78.5 ml LAV(MOD-sp2): LA A4 area: 15.4 cm2 LVLs ap4: 6.1 cm 42.0 ml LA length (vol): ESV(MOD-sp4): 4.9 cm 23.4 ml LA vol: 42.3 ml EF(MOD-sp4): 70.2 % LA vol index: 22.0 ml/m2 Doppler Measurements Calculations MV dec time: MV V2 max: E/E' lat: 7.0 MV dec slope: 0.20 sec 92.0 cm/sec E/E' med: 9.4 MV max P.4 mmHg 329.0 cm/sec2 MV V2 mean: 55.8 cm/sec MV mean P.0 mmHg MV V2 VTI: 26.6 cm MVA(VTI): 2.5 cm2 __ Ao V2 max: LV V1 max PG: TV max PG: TR max anthony: 95.4 cm/sec 3.6 mmHg 19.0 mmHg 220.0 cm/sec Ao max P.6 mmHgLV V1 mean PG: TR max P.4 mmHg Ao mean P.0 mmHg RAP systole: 10.0 mmHg 2.0 mmHg LV V1 mean: Ao V2 mean: 61.1 cm/sec 64.2 cm/sec LV V1 VTI: 20.9 cm Ao V2 VTI: 18.4 cm LUCA(I,D): 3.6 cm2 LUCA(V,D): 3.1 cm2 Transcribed By: JOHAN Performed At: 12/10/24 1142 Signed By: Gildardo Pastor MD 12/10/24 2257 Normal [facility] Glucose Poct Glucometerson 0 12-10-2024 Glucose [Mass/Vol] 135 mg/dL Normal [facility] Comment on above: Result Comment: [facility] om Glucose Reference Range is dependent on time and content of last meal. Glucose of more than 200 mg/dL in a nonstressed, ambulatory subject supports the diagnosis of Diabetes Mellitus. PERFORMED BY: [place] [address] PATHOLOGIST SENIOR RESEARCH ENGINEER MANDY ACUÑA M.D. Performed By: #### G LULS #### Point of Care testing , Magnesiumon 12-10-2024 Magnesium [Mass/Vol] 1.7 mg/dL Low 1.9-2.7 [facility] Comment on above: Result Comment: PERF ORMED BY: [place] [address] PATHOLOGIST SENIOR RESEARCH ENGINEER MANDY ACUÑA M.D. Performed By: #### U RDS #### [address] Opiates [Presence] in Urine by Screen methodOrdered By: Soco Beasley on 12-10-2024 Opiates Screen Ql (U) Opiates [Presence] in Urine by Screen method High Negative [facility] Phencyclidine Screen Ql (U)O rdered By: Soco Beasley on 12-10-2024 Phencyclidine Ql (U) Phencyclidine [Presence] in Urine by Screen method Negative [facility] Troponin I High Sensitivityo n 12-10-2024 Troponin I High Sensitivity 1309 Off scale high 0-15 [facility] Comment on above: Result Comment: Crit ical Result : Called to and read back by: VIOLA KAY at: 12/10/2024 07:21:46 by:CELESTINA The Troponin units of report have been changed to meet the Chest Pain Accreditation requirement, element EC5.M1l2. Troponin units are changed from pg/ml to ng/L. Also, the decimal is removed and results are in whole numbers. PERFORMED BY: [place] [address] PATHOLOGIST SENIOR RESEARCH ENGINEER MANDY ACUÑA M.D. Performed By: #### G LULS #### Point of Care testing , Troponin I.cardiac [Mass/vol ume] in Serum or Plasma by Detection limit <= 0.01 ng/Ordered By: Soco Beasley on 12-10-2024 Troponin I.cardiac DL <= 0.01 ng/mL [Mass/Vol] Troponin I.cardiac [Mass/volume] in Serum or Plasma by Detection limit <= 0.01 ng/ Critically high 0-15 [facility] Comment on above: Critical Result : Ca lled to and read back by: VIOLA KAY at: 12/10/2024 07:21:46 by:CELESTINAThe Troponin units of report have been changed to meet the Chest Pain Accreditation requirement, element EC5.M1l2. Troponin units are changed from pg/ml to ng/L. Also, the decimal is removed and results are in whole numbers. X-ray reportOrdered By: Roman Ugalde on 12-10-2024 Study report [facility] [place] [address] [place] [address] XRay Report Signed Patient: Zuleyka Chaudhry MR#: [id number] : 1955 Acct:[id number] Age/Sex: 69 / F ADM Date: 5 Loc: Room: [address] [place] [address] Type: ADM IN Attending Dr: Soco Beasley MD Copies to: Soco Beasley MD~ Ordering Provider: Soco Beasley MD Date of Service: 12/10/24 XR/XR chest 1V portable: Intubated SINGLE VIEW CHEST CLINICAL HISTORY: Transfer from [place]. Following responsive. COMPARISON: Chest 12/09/2024 FINDINGS: Enteric tube tip below the level of the diaphragm. ET tube in satisfactory position. Heart appears normal in size. Bibasilar atelectasis/interstit ial changes. No consolidation pneumothorax pleural effusion or free air. XR/XR chest 1V portable IMPRESSION: TUBES IN SATISFACTORY POSITIONS. BIBASILAR ATELECTASIS/INTERSTIT IAL CHANGES. Impression dictated by: Ryan Ugalde Jr., D.O.12/10/2024 9:13 AM Dictation Location: [place] [address] Transcribed By: [facility] 12/10/2413 Dictated By: Ryan Ugalde Jr, DO 12/10/2412 Signed By: 12/10/24912 [facility] Study report [facility] Main [address] [address] XRay Report Signed Patient: Zuleyka Chaudhry MR#: [id number] : 1955 Acct:[id number] Age/Sex: 69 / F ADM Date: 5 Loc: 4C Room: [address] [place] [address] Type: ADM IN Attending Dr: Soco Beasley MD Copies to: Soco Beasley MD~ Ordering Provider: Soco Beasley MD Date of Service: 12/09/24 XR/XR abdomen 1V: OG placement KUB: CLINICAL INFORMATION: Respiratory failure. OG tube. Found unresponsive. COMPARISON: Chest 12/09/2024 at 2205 hours FINDINGS: Enteric tube tip in the expected location of the stomach. No free airis seen involving the upper abdomen. Gaseous distention of bowel loops is seen. XR/XR abdomen 1V IMPRESSION: ENTERIC TUBE TIP IN THE EXPECTED LOCATION OF THE STOMACH. Impression dictated by: Ryan Ugalde Jr., D.OLakeisha12/10/2024 8:33 AM Dictation Location: [place] [address] Transcribed By: [facility] 12/10/24 0833 Dictated By: Ryan Ugalde Jr, DO 12/10/24 0831 Signed By: 12/10/24 0833 [facility] X-ray reportOrdered By: Hima Toledo on 12-10-2024 Study report [address] [address] XRay Report Signed Patient: Zuleyka Chaudhry MR#: [id number] : 1955 Acct:[id number] Age/Sex: 69 / F ADM Date: 5 Loc: 4C Room: [address] [place] [address] Type: ADM IN Attending Dr: Soco Beasley MD Copies to: Soco Beasley MD~ Ordering Provider: Soco Beasley MD Date of Service: 12/09/24 XR/XR chest 1V portable: intubation SINGLE VIEW CHEST CLINICAL HISTORY: Respiratory failure, on ventilator with orogastric tube was found unresponsive COMPARISON: 12/10/2024 FINDINGS: Endotracheal tube, 4 cm above the carole. Enteric tube left upper quadrant tip not visualized. Stable mildly enlarged cardiomediastinal silhouette. Increasedperihilar and interstitial markings. Minimal bibasilar atelectasis. No large effusion or pneumothorax. XR/XR chest 1V portable IMPRESSION: MILD INTERSTITIAL THICKENING. MINIMAL BIBASILAR ATELECTASIS. LINES AND CATHETERS ABOVE. Impression dictated by: Tosrten Toledo M.D.12/10/2024 8:31 AM Dictation Location: [facility]-26 Transcribed By: [facility] 12/10/24830 Dictated By: Torsten Toledo MD 12/10/24828 Signed By: 12/10/24830 [facility] Work Phone: XR abdomen 1Von 12-10-2024 XR abdomen 1V [facility] [place] [address] XRay Report Signed Patient: Zuleyka Chaudhry MR#: [id number] 27 : 1955 Acct:[id number] Age/Sex: 69 / F ADM Date: 12/09/24 Loc: Room: [address] [place] [address] Type: ADM IN Attending Dr: Soco Beasley MD Copies to: Soco Beasley MD Ordering Provider: Soco Beasley MD Date of Service: 12/09/24 XR/XR abdomen 1V: OG placement KUB: CLINICAL INFORMATION: Respiratory failure. OG tube. Found unresponsive. COMPARISON: Chest 12/09/2024 at 2205 hours FINDINGS: Enteric tube tip in the expected location of the stomach. No free air is seen involving the upper abdomen. Gaseous distention of bowel loops is seen. XR/XR abdomen 1V IMPRESSION: ENTERIC TUBE TIP IN THE EXPECTED LOCATION OF THE STOMACH. Impression dictated by: Ryan Ugalde Jr., DLakeishaOLakeisha12/10/2024 8:33 AM Dictation Location: [facility]-23 Transcribed By: [facility] 12/10/2433 Dictated By: Ryan Ugalde Jr, DO 12/10/2431 Signed By: 12/10/24832 Normal [facility] XR chest 1V portableon 12-10 XR chest 1V portable [facility] Main [address] [address] XRay Report Signed Patient: Zuleyka Cahudhry MR#: [id number] 27 : 1955 Acct:[id number] Age/Sex: 69 / F ADM Date: 12/09/24 Loc: Room: [address] [place] [address] Type: ADM IN Attending Dr: Soco Beasley MD Copies to: Soco Beasley MD Ordering Provider: Soco Beasley MD Date of Service: 12/10/24 XR/XR chest 1V portable: Intubated SINGLE VIEW CHEST CLINICAL HISTORY: Transfer from [place]. Following responsive. COMPARISON: Chest 12/09/2024 FINDINGS: Enteric tube tip below the level of the diaphragm. ET tube in satisfactory position. Heart appears normal in size. Bibasilar atelectasis/interstit ial changes. No consolidation pneumothorax pleural effusion or free air. XR/XR chest 1V portable IMPRESSION: TUBES IN SATISFACTORY POSITIONS. BIBASILAR ATELECTASIS/INTERSTIT IAL CHANGES. Impression dictated by: Ryan Ugalde Jr., D.O.12/10/2024 9:13 AM Dictation Location: [place] [address] Transcribed By: [facility] 12/10/24 0913 Dictated By: Ryan Ugalde Jr, DO 12/10/24 0912 Signed By: 12/10/24 0913 Normal [facility] XR chest 1V portable [facility] Main [address] [address] XRay Report Signed Patient: Zuleyka Chaudhry MR#: [id number] [birth year] : 1955 Acct:[id number] Age/Sex: 69 / F ADM Date: 12/09/24 Loc: Room: [address] [place] [address] Type: ADM IN Attending Dr: Soco Beasley MD Copies to: Soco Beasley MD Ordering Provider: Soco Beasley MD Date of Service: 12/09/24 XR/XR chest 1V portable: intubation SINGLE VIEW CHEST CLINICAL HISTORY: Respiratory failure, on ventilator with orogastric tube was found unresponsive COMPARISON: 12/10/2024 FINDINGS: Endotracheal tube, 4 cm above the carole. Enteric tube left upper quadrant tip not visualized. Stable mildly enlarged cardiomediastinal silhouette. Increased perihilar and interstitial markings. Minimal bibasilar atelectasis. No large effusion or pneumothorax. XR/XR chest 1V portable IMPRESSION: MILD INTERSTITIAL THICKENING. MINIMAL BIBASILAR ATELECTASIS. LINES AND CATHETERS ABOVE. Impression dictated by: Torsten Toledo M.D.12/10/2024 8:31 AM Dictation Location: [place] [address] Transcribed By: [facility] 12/10/24830 Dictated By: Torsten Toledo MD 12/10/24828 Signed By: 12/10/24830 Normal [facility] Aerobic Cultureon 12-09-2024 Aerobic Culture Light Normal Respiratory Chase 2 Days Gram Stain Result 3+ White Blood Cells Rare Epithelial Cells 4+ Gram Positive Cocci in Chains AND PAIRS PERFORMED BY: [facility] [address] [address] PATHOLOGIST SENIOR RESEARCH ENGINEER MANDY ACUÑA M.D. Normal [facility] Comment on above: Performed By: #### G LULS #### Point of Care testing , Aerobic cultureOrdered By: James Beasley on 12-09-2024 Bacteria identified Aer cx Nom (Unsp spec) Aerobic culture [facility] Anisocytosis LM Ql (Bld)Orde red By: Soco Beasley on 12-09-2024 Anisocytosis Ql (Bld) Anisocytosis [Presence] in Blood by Light microscopy [facility] Arterial Blood Gason 025 ABG Base Excess -4.7 mmol/L Low -3.0-3.0 [facility] Comment on above: Performed By: #### A BG #### Point of Care testing , ABG Frac Inspired O2 40 % Normal [facility] Comment on above: Performed By: #### A BG #### Point of Care testing , ABG Oxygen Content 6.5 mmol/L Low 6.6-9.7 [facility] Comment on above: Performed By: #### A BG #### Point of Care testing , ABG Oxygen Saturation 90.5 % Low 95.0-100.0 [facility] Comment on above: Performed By: #### A BG #### Point of Care testing , ABG PCO2 57.0 mm[Hg] Off scale high 35.0-45.0 [facility] Comment on above: Performed By: #### A BG #### Point of Care testing , ABG PEEP 5 cmH20 Normal [facility] Comment on above: Performed By: #### A BG #### Point of Care testing , ABG PH 7.23 Low 7.35-7.45 [facility] Comment on above: Performed By: #### A BG #### Point of Care testing , ABG PO2 66.7 mm[Hg] Low 80.0-100.0 [facility] Comment on above: Performed By: #### A BG #### Point of Care testing , ABG TV 450 mL Normal [facility] Comment on above: Performed By: #### A BG #### Point of Care testing , CO2 [Moles/Vol] 25.1 mmol/L Normal 23.0-27.0 [facility] Comment on above: Performed By: #### A BG #### Point of Care testing , HCO3 (Bld) [Moles/Vol] 23.3 mmol/L Normal 23.0-29.0 [facility] Comment on above: Performed By: #### A BG #### Point of Care testing , Respiratory Critical Normal [facility] Comment on above: Result Comment: Crit ical Value called on: 12/09/2024 at 21:27 PERFORMED BY: [place] [place] [address] PATHOLOGIST SENIOR RESEARCH ENGINEER MANDY ACUÑA M.D. Performed By: #### A BG #### Point of Care testing , Set Respiratory Rate 14 Normal [facility] Comment on above: Performed By: #### A BG #### Point of Care testing , VBG Draw Site Left Radial Normal [facility] Comment on above: Performed By: #### A BG #### Point of Care testing , Ventilator Mode AC Normal [facility] Comment on above: Performed By: #### A BG #### Point of Care testing , Band form neutrophils/100 WB C Manual cnt (Bld)Ordered By: Soco Beasley on 12-09-2024 Band form neutrophils/100 WBC (Bld) Peripheral white blood cell differential % bands, microscopic exam High 0-5 [facility] Blood Cultureon 12-09-2024 Bacteria identified Cx Nom (Bld) NO GROWTH 5 DAYS PERFORMED BY: [place] [address] PATHOLOGIST SENIOR RESEARCH ENGINEER MANDY ACUÑA M.D. Normal [facility] Comment on above: Performed By: #### G MANSI #### Point of Care testing , Bacteria identified Cx Nom (Bld) NO GROWTH 5 DAYS PERFORMED BY: [address] [address] PATHOLOGIST SENIOR RESEARCH ENGINEER MANDY ACUÑA M.D. Normal [facility] Comment on above: Performed By: #### G MANSI #### Point of Care testing , Florinda cells [Presence] in Blo od by Light microscopyOrdered By: Soco Beasley on 12-09-2024 Florinda cells LM Ql (Bld) Florinda cells [Prese nce] in Blood by Light microscopy [facility] Comprehensive Metabolic Pane ana 12-09-2024 Albumin [Mass/Vol] 3.6 g/dL Normal 3.5-5.7 [facility] Comment on above: Performed By: #### A BG #### Point of Care testing , Albumin/Globulin [Mass ratio] 1.6 {ratio} Normal [facility] Comment on above: Performed By: #### A BG #### Point of Care testing , ALP [Catalytic activity/Vol] 78 U/L Normal 34-104 [facility] Comment on above: Result Comment: PERF ORMED BY: [address] [place] [address] PATHOLOGIST SENIOR RESEARCH ENGINEER MANDY ACUÑA M.D. Performed By: #### A BG #### Point of Care testing , ALT [Catalytic activity/Vol] 82 U/L High 7-52 [facility] Comment on above: Performed By: #### A BG #### Point of Care testing , Anion gap [Moles/Vol] 8.6 mmol/L Normal 6.0-15.0 [facility] Comment on above: Performed By: #### A BG #### Point of Care testing , AST [Catalytic activity/Vol] 61 U/L High 13-39 [facility] Comment on above: Performed By: #### A BG #### Point of Care testing , Bilirubin [Mass/Vol] 0.4 mg/dL Normal 0.3-1.0 [facility] Comment on above: Performed By: #### A BG #### Point of Care testing , Calcium [Mass/Vol] 7.1 mg/dL Low 8.6-10.3 [facility] Comment on above: Performed By: #### A BG #### Point of Care testing , Chloride [Moles/Vol] 97 mmol/L Low 98-107 [facility] Comment on above: Performed By: #### A BG #### Point of Care testing , CO2 [Moles/Vol] 24.6 mmol/L Normal 21.0-31.0 [facility] Comment on above: Performed By: #### A BG #### Point of Care testing , Creatinine [Mass/Vol] 0.68 mg/dL Normal 0.60-1.20 [facility] Comment on above: Performed By: #### A BG #### Point of Care testing , GFR/1.73 sq M.predicted MDRD (S/P/Bld) [Vol rate/Area] mL/min/{1.73_m2} Normal [facility] Comment on above: Performed By: #### A BG #### Point of Care testing , Globulin (S) [Mass/Vol] 2.3 g/dL Normal [facility] Comment on above: Performed By: #### A BG #### Point of Care testing , Glucose [Mass/Vol] 186 mg/dL High 70-100 [facility] Comment on above: Result Comment: [facility] Glucose Reference Range is dependent on time and content of last meal. Glucose of more than 200 mg/dL in a nonstressed, ambulatory subject supports the diagnosis of Diabetes Mellitus. ADA recommended reference range Performed By: #### A BG #### Point of Care testing , Potassium [Moles/Vol] 3.2 mmol/L Low 3.5-5.1 [facility] Comment on above: Performed By: #### A BG #### Point of Care testing , Protein [Mass/Vol] 5.9 g/dL Low 6.4-8.9 [facility] Comment on above: Performed By: #### A BG #### Point of Care testing , Sodium [Moles/Vol] 127 mmol/L Low 136-145 [facility] Comment on above: Performed By: #### A BG #### Point of Care testing , Urea nitrogen [Mass/Vol] 16 mg/dL Normal 7-25 [facility] Comment on above: Performed By: #### A BG #### Point of Care testing , Diff and CBCon 12-09-2024 Anisocytosis Ql (Bld) Slight Normal [facility] Comment on above: Performed By: #### A BG #### Point of Care testing , Band form neutrophils/100 WBC (Bld) 27 % High 0-5 [facility] Comment on above: Performed By: #### A BG #### Point of Care testing , Crenated RBC Slight Normal [facility] Comment on above: Performed By: #### A BG #### Point of Care testing , Erythrocyte distribution width (RBC) [Ratio] 15.4 % High 11.9-15.3 [facility] Comment on above: Performed By: #### A BG #### Point of Care testing , Hematocrit (Bld) [Volume fraction] 33.0 % Low 34.0-46.4 [facility] Comment on above: Performed By: #### A BG #### Point of Care testing , Hemoglobin (Bld) [Mass/Vol] 10.7 g/dL Low 11.8-15.4 [facility] Comment on above: Performed By: #### A BG #### Point of Care testing , Lymphocytes/100 WBC (Bld) 0 % Low 18-42 [facility] Comment on above: Performed By: #### A BG #### Point of Care testing , MCH (RBC) [Entitic mass] 28.1 pg Normal 24.7-34.3 [facility] Comment on above: Performed By: #### A BG #### Point of Care testing , MCV (RBC) [Entitic vol] 87.0 fL Normal 80-100 [facility] Comment on above: Performed By: #### A BG #### Point of Care testing , Mean Corpuscular HGB Conc 32.3 g/dL Normal 32.0-35.0 [facility] Comment on above: Performed By: #### A BG #### Point of Care testing , Microcytosis Slight Normal [facility] Comment on above: Performed By: #### A BG #### Point of Care testing , Monocytes/100 WBC (Bld) 2 % Normal 2-11 [facility] Comment on above: Performed By: #### A BG #### Point of Care testing , Platelet Estimate Normal Normal Normal [facility] Comment on above: Performed By: #### A BG #### Point of Care testing , Platelet mean volume (Bld) [Entitic vol] 6.9 fL Normal 6.3-10.7 [facility] Comment on above: Result Comment: PERF ORMED BY: [place] [address] [place] [address] PATHOLOGIST SENIOR RESEARCH ENGINEER MANDY ACUÑA M.D. Performed By: #### A BG #### Point of Care testing , Platelet Morphology Normal Normal Normal [facility] Comment on above: Result Comment: PERF ORMED BY: [facility] [address] [place] [address] PATHOLOGIST SENIOR RESEARCH ENGINEER MANDY ACUÑA M.D. Performed By: #### A BG #### Point of Care testing , Platelets (Bld) [#/Vol] 236 10*3/uL Normal 150-450 [facility] Comment on above: Performed By: #### A BG #### Point of Care testing , Poikilocytosis Slight Normal [facility] Comment on above: Performed By: #### A BG #### Point of Care testing , Polychromasia Slight Normal [facility] Comment on above: Performed By: #### A BG #### Point of Care testing , RBC (Bld) [#/Vol] 3.80 10*6/uL Normal 3.60-5.00 [facility] Comment on above: Performed By: #### A BG #### Point of Care testing , Segmented neutrophils/100 WBC (Bld) 71 % High 50-70 [facility] Comment on above: Performed By: #### A BG #### Point of Care testing , WBC (Bld) [#/Vol] 15.9 10*3/uL High 3.8-11.6 [facility] Comment on above: Performed By: #### A BG #### Point of Care testing , ECG 12 lead ECGon 12-09-2024 ECG 12 lead ECG [facility] [place] [address] Electrocardiograph Report Signed Patient: Zuleyka Chaudhry MR#: [id number] 27 : 1955 Acct:[id number] Age/Sex: 69 / F ADM Date: 12/09/24 Loc: Room: [address] [place] [address] Type: ADM IN Attending Dr: Daniel Garza MD Ordering Provider: Soco Beasley MD Date of Service: 12/09/24 ECG/ECG 12 lead ECG: nursing routine / protocol Copies to: Test Reason : Blood Pressure : */* mmHG Vent. Rate : 78 BPM Atrial Rate : 78 BPM P-R Int : 142 ms QRS Dur : 124 ms QT Int : 420 ms P-R-T Axes : 80 -7 41 degrees QTcB Int : 478 ms Normal sinus rhythm Right bundle branch block Abnormal ECG Confirmed by Krissy Cortez ([id number]) on 12/12/2024 12:01:02 AM Referred By: Electronically Signed By: Krissy Cortez Transcribed By: [facility] Signed By Krissy Cortez MD 5 0001 Normal [facility] Erythrocyte morphology findi ng [Identifier] in BloodOrdered By: Soco Beasley on 12-09-2024 RBC morphology finding Nom (Bld) RBC morphology [facility] Gram Stainon 12-09-2024 Microscopic observation Gram stain Nom (Unsp spec) Gram Stain Result 3+ White Blood Cells Rare Epithelial Cells 4+ Gram Positive Cocci in Chains AND PAIRS PERFORMED BY: [address] [place] [address] PATHOLOGIST SENIOR RESEARCH ENGINEER MADNY ACUÑA M.D. Normal [facility] Comment on above: Performed By: #### G LULS #### Point of Care testing , Gram stain microscopyOrdered By: Soco Beasley on 12-09-2024 Microscopic observation Gram stain Nom (Unsp spec) Gram stain microscopy [facility] - Microbiology an d Antimicrobial susceptibilityOrdered By: Soco Beasley on 12-09-2024 Bacteria identified Cx Nom (Bld) NO GROWTH 5 DAYS [facility] Bacteria identified Cx Nom (Bld) NO GROWTH 5 DAYS [facility] Lactate [Moles/volume] in Se rum or PlasmaOrdered By: Soco Beasley on 12-09-2024 Lactate [Moles/Vol] Lactate [Moles/volume] in Serum or Plasma 0.5-1.9 [facility] Comment on above: Lactic Acid referenc e range has been updated to 0.5 1.9 mmol/L and the critical range of 2.0 or greater. Lactic Acidon 12-09-2024 Lactate [Moles/Vol] 1.4 mmol/L Normal 0.5-1.9 [facility] Comment on above: Result Comment: Lact ic Acid reference range has been updated to 0.5 ? 1.9 mmol/L and the critical range of 2.0 or greater. PERFORMED BY: [address] [place] [address] PATHOLOGIST SENIOR RESEARCH ENGINEER MANDY ACUÑA M.D. Performed By: #### G LULS #### Point of Care testing , Lactate [Moles/Vol] 1.3 mmol/L Normal 0.5-1.9 [facility] Comment on above: Result Comment: Lact ic Acid reference range has been updated to 0.5 ? 1.9 mmol/L and the critical range of 2.0 or greater. PERFORMED BY: [facility] [address] [place] [address] PATHOLOGIST SENIOR RESEARCH ENGINEER MANDY ACUÑA M.D. Performed By: #### G LULS #### Point of Care testing , Lymphocytes/100 WBC Manual c nt (Bld)Ordered By: Soco Beasley on 12-09-2024 Lymphocytes/100 WBC (Bld) Lymphocytes/100 leukocytes in Blood by Manual count Low 18-42 [facility] Microcytes LM Ql (Bld)Ordere d By: Soco Beasley on 12-09-2024 Microcytes Ql (Bld) Microcytes [Presence ] in Blood by Light microscopy [facility] Monocytes/100 WBC Manual cnt (Bld)Ordered By: Soco Beasley on 12-09-2024 Monocytes/100 WBC (Bld) Monocytes/100 leukocytes in Blood by Manual count 2-11 [facility] Platelet adequacy [Presence] in Blood by Light microscopyOrdered By: Soco Beasley on 12-09-2024 Platelets LM Ql (Bld) Platelet adequacy [Presence] in Blood by Light microscopy Normal [facility] Platelet morphology finding [Identifier] in BloodOrdered By: Soco Beasley on 12-09-2024 Platelet morphology finding Nom (Bld) Platelet morphology finding [Identifier] in Blood Normal [facility] Poikilocytosis [Presence] in Blood by Light microscopyOrdered By: Soco Beasley on 12-09-2024 Poikilocytosis LM Ql (Bld) Poikilocytosis [Presence] in Blood by Light microscopy [facility] Polychromasia [Presence] in Blood by Light microscopyOrdered By: Soco Beasley on 12-09-2024 Polychromasia LM Ql (Bld) Polychromasia [Presence] in Blood by Light microscopy [facility] Segmented neutrophils/100 WB C Manual cnt (Bld)Ordered By: Soco Beasley on 12-09-2024 Segmented neutrophils/100 WBC (Bld) Manual blood segmented neutrophils/100 leukocytes High 50-70 [facility] Triglycerideson 12-09-2024 Triglyceride [Mass/Vol] 63 mg/dL Normal 35-149 [facility] Comment on above: Result Comment: TRIG ATP III CLASSIFICATION TRIG less than 150 mg/dL Normal TRIG 150-199 mg/dL Borderline high TRIG 200-500 mg/dL High TRIG greater than 500 mg/dL Very high Standard traceable to the Center for Disease Conrtrol and Prevention (CDC) test method. PERFORMED BY: [facility] [address] [place] [address] PATHOLOGIST SENIOR RESEARCH ENGINEER MANDY ACUÑA M.D. Performed By: #### G LULS #### Point of Care testing , Troponin I High Sensitivityo n 12-09-2024 Troponin I High Sensitivity 1309 Off scale high 0-15 [facility] Comment on above: Result Comment: Crit ical Result : Called to and read back by: VIOLA KAY at: 12/09/2024 23:07:02 by:GENA The Troponin units of report have been changed to meet the Chest Pain Accreditation requirement, element EC5.M1l2. Troponin units are changed from pg/ml to ng/L. Also, the decimal is removed and results are in whole numbers. PERFORMED BY: [facility] [address] [place] [address] PATHOLOGIST SENIOR RESEARCH ENGINEER MANDY ACUÑA M.D. Performed By: #### A BG #### Point of Care testing , HbA1c (Bld) [Mass fraction]o n 09-20-2024 Interpretation and review of laboratory results Normal [facility] - Hematology and Cell countson 09-20-2024 HbA1c (Bld) [Mass fraction] 6.1 % [facility] Neurology Forms- Texton 020 Neurology Forms- Text [id number] #1.00TIFF Normal [facility] Consent for Treatmenton 02-0 Consent for Treatment [id number]#1 .00TIFF Normal [facility] Physician Orderon 12-05-2023 Physician Order [id number]#1 .00TIFF Normal [facility] MRI Brain w/ + w/o [...] soft tissues are unremarkable. Ordering Provider: Arielle Wheeler FINAL REPORT Dictated: 12/02/2023 12:36 pm Lincoln Prater MD Signed (Electronic Signature): 12/02/2023 12:36 pm Signed by: Lincoln Prater MD Transcribed by: SANA Technologist: CORDELIA Technical Comments [employer] Contrast amount in ml's: 6 Normal [facility] MRI Spine Cervical w/o Contr bonnie 12-02-2023 [...] foramina without significant narrowing. Ordering Provider: Arielle Wheeler FINAL REPORT Dictated: 12/02/2023 12:40 pm Lincoln Prater MD Signed (Electronic Signature): 12/02/2023 12:40 pm Signed by: Lincoln Prater MD Transcribed by: SANA Technologist: CORDELIA Technical Comments None Normal [facility] BUNon 11-30-2023 Urea nitrogen [Mass/Vol] 17 mg/dL Normal - [facility] Comment on above: Performed By: #### 1 [id number], [id number] #### [facility] [address] [place] [address] Consent for Treatmenton 11-14 Consent for Treatment [id number]#1 .00TIFF Normal [facility] Creatinineon 11-30-2023 Creatinine [Mass/Vol] 0.8 mg/dL Normal 0.5-1.3 [facility] Comment on above: Performed By: #### 1 [id number], [id number] #### [facility] [address] [place] [address] RAD - MRI Screening Formon 0 11-30-2023 RAD - MRI Screening Form [id number]#1 .00TIFF Normal [facility] eGFRon 11-30-2023 eGFR 79 mL/min/1.73 m2 Normal >=59 [facility] Comment on above: Order Comment: Order added by Discern Expert. Performed By: #### 1 [id number], [id number], [id number] #### [facility] [address] [place] [address] Physician Orderon 10-28-2023 Physician Order [id number]#1 .00TIFF Normal [facility] CBC AUTO DIFFon 01-05-2023 BASO # 0.1 103/ul Normal 0.0-0.1 [facility] Comment on above: Performed By: #### C BC #### [facility] [address] [address] [address] Stan Aceves Basophils/100 WBC (Bld) 0.7 % Normal 0.2-2.0 [facility] Comment on above: Performed By: #### C BC #### [facility] [address] [place] [address] Dr. Stan Aceves EO # 0.1 103/ul Normal 0.0-0.7 [facility] Comment on above: Performed By: #### C BC #### [facility] [address] [place] [address] Dr. Stan Aceves Eosinophils/100 WBC (Bld) 1.0 % Normal 0.9-7.0 [facility] Comment on above: Performed By: #### C BC #### [facility] [address] [place] [address] Dr. Stan Aceves Erythrocyte distribution width (RBC) [Ratio] 16.8 % Critically high 11.0-15.0 [facility] Comment on above: Performed By: #### C BC #### [facility] [address] [place] [address] Dr. Stan Aceves Hematocrit (Bld) [Volume fraction] 33.7 % Critically low 36.0-48.0 [facility] Comment on above: Performed By: #### C BC #### [facility] [address] [place] [address] Dr. Stan Aceves Hemoglobin (Bld) [Mass/Vol] 10.6 g/dL Critically low 12.0-16.0 [facility] Comment on above: Performed By: #### C BC #### [facility] [address] [place] [address] Dr. Stan Aceves IG # 0.03 10e3/ul Normal 0.00-0.03 [facility] Comment on above: Performed By: #### C BC #### [facility] [address] [place] [address] Dr. Stan Aceves IG % 0.3 % Normal 0.0-0.5 [facility] Comment on above: Performed By: #### C BC #### [facility] [address] [place] [address] Dr. Stan Aceves LYMPH # 0.9 103/ul Critically low 1.2-3.8 [facility] Comment on above: Performed By: #### C BC #### [facility] [address] [place] [address] Dr. Stan Aceves Lymphocytes/100 WBC (Bld) 9.9 % Critically low 20.5-60.0 [facility] Comment on above: Performed By: #### C BC #### [facility] [address] [place] [address] Dr. Stan Aceves MANUAL DIFF REQ NO Normal [facility] Comment on above: Performed By: #### C BC #### [facility] [address] [place] [address] Dr. Stan Aceves MCH (RBC) [Entitic mass] 25.7 pg Critically low 26.7-34 .0 [facility] Comment on above: Performed By: #### C BC #### [facility] [address] [place] [address] Dr. Stan Aceves MCHC (RBC) [Mass/Vol] 31.5 g/dL Normal 29.9-35.2 [facility] Comment on above: Performed By: #### C BC #### [facility] [address] [place] [address] Dr. Stan Aceves MCV (RBC) [Entitic vol] 81.6 fL Normal 81.0-99.0 [facility] Comment on above: Performed By: #### C BC #### [facility] [address] [place] [address] Dr. Stan Aceves MONO # 0.7 103/ul Normal 0.3-0.8 [facility] Comment on above: Performed By: #### C BC #### [facility] [address] [place] [address] Dr. Stan Aceves Monocytes/100 WBC (Bld) 7.3 % Normal 1.7-12.0 [facility] Comment on above: Performed By: #### C BC #### [facility] [address] [place] [address] Dr. Stan Aceves NEUT # 7.4 103/ul Critically high 1.4-6.5 [facility] Comment on above: Performed By: #### C BC #### [facility] [address] [address] [address] Stan Aceves Neutrophils/100 WBC (Bld) 80.8 % Critically high 43.0-75.0 [facility] Comment on above: Performed By: #### C BC #### [facility] [address] [address] [address] Stan Aceves Platelet mean volume (Bld) [Entitic vol] 8.2 fL Critically low 9.5-13.5 [facility] Comment on above: Performed By: #### C BC #### [facility] [address] [address] [address] Stan Aceves PLT 396 103/ul Normal 150-450 [facility] Comment on above: Performed By: #### C BC #### [facility] [address] [address] [address] Stan Aceves RBC 4.13 106/ul Critically low 4.20-5.40 [facility] Comment on above: Performed By: #### C BC #### [facility] [address] [address] [address] Stan Aceves WBC 9.2 103/ul Normal 4.0-11.0 [facility] Comment on above: Performed By: #### C BC #### [facility] [address] [place] [address] Dr. Stan Aceves GLYCOHEMOGLOBIN A1Con 2022 ADA RECOMMENDATION SEE BELOW Normal [facility] Comment on above: Result Comment: ADA RECOMMENDED LIMIT 4.0 - 6.0 ADA THERAPEUTIC TARGET < 7.0 ACTION SUGGESTED > 7.0 Performed By: #### A 1C #### [facility] [address] [place] [address] Dr. Stan Aceves Glucose [Mass/Vol] 126 mg/dL Normal [facility] Comment on above: Performed By: #### A 1C #### [facility] [address] [address] [address] Stan Aceves HbA1c (Bld) [Mass fraction] 6.0 % Normal 4.5-6.2 [facility] Comment on above: Performed By: #### A 1C #### [facility] [address] [place] [address] Dr. Stan Aceves IRONon 01-05-2023 Iron [Mass/Vol] 36.0 ug/dL Critically low 50.0-170.0 [facility] Comment on above: Performed By: #### I KAM #### [facility] [address] [place] [address] Dr. Stan Aceves MICROALBUMIN, RAND URon 12-16 mALB <1.3 Normal <=30.0 [facility] Comment on above: Performed By: #### M ALBR #### [facility] [address] [place] [address] Dr. Stan Aceves PROF 14(COMP METB)on 023 Albumin [Mass/Vol] 3.5 g/dL Normal 3.4-5.0 [facility] Comment on above: Performed By: #### T 4, CMP, TSH #### [facility] [address] [place] [address] Dr. Stan Aceves Albumin/Globulin [Mass ratio] 1.0 {ratio} Normal [facility] Comment on above: Performed By: #### T 4, CMP, TSH #### [facility] [address] [place] [address] Dr. Stan Aceves ALP [Catalytic activity/Vol] 105 U/L Normal 46-116 [facility] Comment on above: Performed By: #### T 4, CMP, TSH #### [facility] [address] [place] [address] Dr. Stan Aceves ALT [Catalytic activity/Vol] 20 U/L Normal 14-59 [facility] Comment on above: Performed By: #### T 4, CMP, TSH #### [facility] [address] [place] [address] Dr. Stan Aceves Anion gap [Moles/Vol] 12.1 mmol/L Normal [facility] Comment on above: Performed By: #### T 4, CMP, TSH #### [facility] [address] [address] [address] Stan Aceves AST [Catalytic activity/Vol] 14 U/L Critically low 15-37 [facility] Comment on above: Performed By: #### T 4, CMP, TSH #### [facility] [address] [address] [address] Stan Aceves Bilirubin [Mass/Vol] 0.3 mg/dL Normal 0.2-1.0 [facility] Comment on above: Performed By: #### T 4, CMP, TSH #### [facility] [address] [address] [address] Stan Aceves Calcium [Mass/Vol] 9.1 mg/dL Normal 8.5-10.1 [facility] Comment on above: Performed By: #### T 4, CMP, TSH #### [facility] [address] [place] [address] Dr. Stan Aceves Chloride [Moles/Vol] 103 mmol/L Normal 98-107 [facility] Comment on above: Performed By: #### T 4, CMP, TSH #### [facility] [address] [address] [address] Stan Aceves CO2 [Moles/Vol] 26.8 mmol/L Normal 21.0-32.0 [facility] Comment on above: Performed By: #### T 4, CMP, TSH #### [facility] [address] [address] [address] Stan Aceves Creatinine [Mass/Vol] 0.84 mg/dL Normal 0.55-1.02 [facility] Comment on above: Performed By: #### T 4, CMP, TSH #### [facility] [address] [address] [address] Stan Aceves EGFR-AF LUXEMBOURGER >60 Normal >=60 [facility] Comment on above: Performed By: #### T 4, CMP, TSH #### [facility] [address] [place] [address] Dr. Stan Aceves EGFR-NON AF LUXEMBOURGER >60 Normal >=60 [facility] Comment on above: Performed By: #### T 4, CMP, TSH #### [facility] [address] [address] [address] Stan Aceves Globulin (S) [Mass/Vol] 3.6 g/dL Normal [facility] Comment on above: Performed By: #### T 4, CMP, TSH #### [facility] [address] [place] [address] Dr. Stan Aceves Glucose [Mass/Vol] 84 mg/dL Normal 74-106 [facility] Comment on above: Performed By: #### T 4, CMP, TSH #### [facility] [address] [place] [address] Dr. Stan Aceves Potassium [Moles/Vol] 3.9 mmol/L Normal 3.5-5.1 [facility] Comment on above: Performed By: #### T 4, CMP, TSH #### [facility] [address] [place] [address] Dr. Stan Aceves Protein [Mass/Vol] 7.1 g/dL Normal 6.4-8.2 [facility] Comment on above: Performed By: #### T 4, CMP, TSH #### [facility] [address] [place] [address] Dr. Stan Aceves Sodium [Moles/Vol] 138 mmol/L Normal 136-145 [facility] Comment on above: Performed By: #### T 4, CMP, TSH #### [facility] [address] [place] [address] Dr. Stan Aceves Urea nitrogen [Mass/Vol] 12.0 mg/dL Normal 7.0-18.0 [facility] Comment on above: Performed By: #### T 4, CMP, TSH #### [facility] [address] [place] [address] Dr. Stan Aceves Urea nitrogen/Creatinine [Mass ratio] 14.3 mg/mg Normal [facility] Comment on above: Performed By: #### T 4, CMP, TSH #### [facility] [address] [place] [address] Dr. Stan Aceves T4on 01-05-2023 T4 [Mass/Vol] 8.70 ug/dL Normal 4.80-13.90 [facility] Comment on above: Performed By: #### T 4, HI, TSH #### [facility] [address] [place], [place] [address] Dr. Stan Aceves TSHon 01-05-2023 TSH 2.209 uIU/mL Normal 0.358-3.740 [facility] Comment on above: Performed By: #### T 4, CMP, TSH #### [facility] [address] [place], [place] [address] Dr. Stan Aceves MRI BRAIN WO W [...] PATRICK PIERRE Date: 2022-04-27 10:16 Normal [facility] CREATININEon 04-08-2022 Creatinine [Mass/Vol] 0.91 mg/dL Normal 0.55-1.02 [facility] Comment on above: Performed By: #### C ONIEL #### [facility] [address] [place], [place] [address] Dr. Stan Aceves EGFR-AF LUXEMBOURGER >60 Normal >=60 [facility] Comment on above: Performed By: #### C ONIEL #### [facility] [address] [place], [place] [address] Dr. Stan Aceves EGFR-NON AF LUXEMBOURGER >60 Normal >=60 [facility] Comment on above: Performed By: #### C ONIEL #### [facility] [address] [place], [place] [address] Dr. Stan Aceves CTA ABD/PELVIS WO W [...] of adrenal glands. Electronically authenticated by: PATRICK FENGRISHI Date: 2022-04-08 10:04 Normal [facility] Established Visit (Otolaryng ology)on 09-26-2018 Established [...] EVERY week --take 30 MINUTES before BREAKFAST;Therapy: [id number] to Recorded Rx By: Zion; Dispense: 84 [...] ARIEL = N; Record; Last Updated By: Domneica Topete; 10/11/2017 1:16:16 PM Atorvastatin Calcium 40 MG Oral Tablet; TAKE 1 TABLET BY MOUTH DAILY ATBEDTIME;Therapy: [id number] to Recorded Rx By: Zion; Dispense: 30 Days ; #:30; Refill: 0; ARIEL = N; Record; Last Updated By: Domenica Topete; 10/11/2017 1:16:16 PM Famotidine 20 MG Oral Tablet; TAKE 1 TABLET AT BEDTIME and TAKE 1 TABLET ASNEEDED during the day;Therapy: [id number] to Recorded Rx By: Zion; Dispense: 30 [...] 1:29:38 PM Meloxicam 7.5 MG Oral Tablet;Therapy: [id number] to Recorded Rx By: GIANNA ISABEL; Dispense: 30 Days ; #:30; Refill: 0; ARIEL = N; Record; Last Updated By: Mc Winter; 08/20/2014 1:02:13 PM MetFORMIN HCl - 500 MG Oral Tablet;Therapy: [id number] to Recorded Rx By: GIANNA SIABEL; Dispense: 30 Days ; #:15; Refill: 0; [...] Domenica Topete; 10/11/2017 1:16:16 PM Pharmacist Choice Lancmauricio;Therapy: [id number] to Recorded Dispense: 30 Days ; [...] 1:16:16 PM Simvastatin 20 MG Oral Tablet;Therapy: [id number] to Recorded Rx By: GIANNA ISABEL; Dispense: 30 Days ; #:30; Refill: 0; ARIEL = N; Record; Last Updated By: Mc Winter; 08/20/2014 1:02:13 PM True Metrix Meter w/Device Kit; use to test BLOOD SUGAR DAILY;Therapy: [id number] to Recorded Rx By: Chalo; Dispense: 1 Days ; #:1; Refill: 0; ARIEL = N; Record; Last Updated By: Domenica Topete; 10/11/2017 1:16:16 PM [employer] Automatic;Therapy: [id number] to Recorded Dispense: 30 Days ; #:1; Refill: 0; ARIEL = N; Record; Last Updated By: Rachel Contreras; 10/10/2013 3:23:22 PM Diagnoses/Problems Acoustic neuroma (225.1) (D33.3) Orders MRI IAC w/wo Contrast; Status:Hold For - Scheduling,Retrospect desmond By ProtocolAuthorization ; Requested for:15Sep2020; Perform:[facility]; Due:14Dec2020; Last Updated By:Carole Lanier; 09/26/2018 3:48:32 PM;Ordered; For:Acoustic neuroma; Ordered By:Shane Wilkerson;Radiologist to Determine Optimal Study : YWhat are the patient's signs and symptoms? : s/p CPA lesion resection Signatures Electronically signed by : Shane Wilkerson MD; Sep 26 2018 4:29PM EST (Author) Normal [facility] Vital Signs Date Time Vital Sign Value Performing Clinician Facility 01-14-2025 09:30-0500 Body height 160 cm Ian Rader MD Work Phone: [facility] 01-14-2025 09:30-0500 Body mass index (BMI) [Ratio] 25.15 kg/m2 Ian Rader MD Work Phone: [facility] 01-14-2025 09:30-0500 Body temperature 96.6 [degF] Ian Rader MD Work Phone: [facility] 01-14-2025 09:30-0500 Body weight 64.41 kg Ian Rader MD Work Phone: [facility] 01-14-2025 09:30-0500 Diastolic blood pressure 66 mm[Hg] Ian Rader MD Work Phone: [facility] 01-14-2025 09:30-0500 Heart rate 85 /min Ian Rader MD Work Phone: [facility] 01-14-2025 09:30-0500 Respiratory rate 22 /min Ian Rader MD Work Phone: [facility] 01-14-2025 09:30-0500 SaO2% (BldA) [Mass fraction] 97 % Ian Rader MD Work Phone: [facility] 01-14-2025 09:30-0500 Systolic blood pressure 130 mm[Hg] Ian Rader MD Work Phone: [facility] 01-04-2025 09:09-0500 Body height 160.02 cm Daniel Cardoso TEACHING FELLOW-C Work Phone: [facility] 01-04-2025 09:09-0500 Body mass index (BMI) [Ratio] 24.7 kg/m2 Daniel Cardoso TEACHING [employer]LLOW[employer]C Work Phone: [facility] 01-04-2025 09:09-0500 Body weight 63.5 kg Daniel Cardoso TEACHING FELLOW[employer]C Work Phone: [facility] 01-04-2025 09:09-0500 Diastolic blood pressure 56 mm[Hg] Daniel Cardoso TEACHING FELLOW-C Work Phone: [facility] 01-04-2025 09:09-0500 Heart rate 82 /min Daniel Cardoso TEACHING FELLOW-C Work Phone: [facility] 01-04-2025 09:09-0500 Inhaled oxygen flow rate 3 L/min Daniel Cardoso TEACHING FELLOW-C Work Phone: [facility] 01-04-2025 09:09-0500 Respiratory rate 18 /min Daniel Cardoso TEACHING FELLOW-C Work Phone: [facility] 01-04-2025 09:09-0500 SaO2% (BldA) [Mass fraction] 97 % Daniel Staffordk TEACHING FELLOW-C Work Phone: [facility] 01-04-2025 09:09-0500 Systolic blood pressure 104 mm[Hg] Daniel Staffordk TEACHING FELLOW[employer]C Work Phone: [facility] 01-01-2025 13:20-0500 Body temperature 98.1 [degF] [facility] 01-01-2025 13:20-0500 Diastolic blood pressure 84 mm[Hg] [facility] 01-01-2025 13:20-0500 Heart rate 73 /min Stephen Furlong [facility] 01-01-2025 13:20-0500 Respiratory rate 16 /min Stephen Furlong DO [facility] 01-01-2025 13:20-0500 SaO2% (BldA) [Mass fraction] 96 % Stephen Furlong DO [facility] 01-01-2025 13:20-0500 Systolic blood pressure 129 mm[Hg] Stephen Furlong DO [facility] 12-28-2024 14:56-0500 Body temperature 97.2 [degF] Stephen Furlong DO [facility] 12-28-2024 14:56-0500 Diastolic blood pressure 79 mm[Hg] Stephen Furlong DO [facility] 12-28-2024 14:56-0500 Heart rate 79 /min Stephen Furlong DO [facility] 12-28-2024 14:56-0500 Respiratory rate 18 /min Stephen Furlong DO Work Phone: [facility] 12-28-2024 14:56-0500 SaO2% (BldA) [Mass fraction] 96 % Stephen Furlong DO Work Phone: [facility] 12-28-2024 14:56-0500 Systolic blood pressure 150 mm[Hg] Stephen Furlong DO Work Phone: [facility] 12-25-2024 17:23-0500 Body mass index (BMI) [Ratio] 24.03 kg/m2 Stephen Furlong DO Work Phone: [facility] 12-25-2024 17:23-0500 Body temperature 97.9 [degF] Stephen Furlong DO Work Phone: [facility] 12-25-2024 17:23-0500 Body weight 63.5 kg Stephen Furlong DO Work Phone: [facility] 12-25-2024 17:23-0500 Diastolic blood pressure 75 mm[Hg] Stephen Furlong DO Work Phone: [facility] 12-25-2024 17:23-0500 Heart rate 94 /min Stephen Furlong DO Work Phone: [facility] 12-25-2024 17:23-0500 Respiratory rate 18 /min Stephen Furlong DO Work Phone: [facility] 12-25-2024 17:23-0500 SaO2% (BldA) [Mass fraction] 93 % Stephen Furlong DO Work Phone: [facility] 12-25-2024 17:23-0500 Systolic blood pressure 124 mm[Hg] Stephen Furlong DO Work Phone: [facility] 12-18-2024 19:16-0500 Body height 162.6 cm Stephen Furlong DO Work Phone: [facility] 12-18-2024 19:16-0500 Body temperature 97.81 [degF] Stephen Furlong DO Work Phone: [facility] 12-18-2024 19:16-0500 Diastolic blood pressure 65 mm[Hg] Stephen Furlong DO Work Phone: [facility] 12-18-2024 19:16-0500 Heart rate 82 /min Stephen Furlong DO Work Phone: [facility] 12-18-2024 19:16-0500 Respiratory rate 18 /min Stephen Furlong DO Work Phone: [facility] 12-18-2024 19:16-0500 SaO2% (BldA) [Mass fraction] 92 % Stephen Furlong DO Work Phone: [facility] 12-18-2024 19:16-0500 Systolic blood pressure 112 mm[Hg] Stephen Furlong DO Work Phone: [facility] 12-14-2024 14:05-0500 Heart rate 91 /min Daniel Cardoso TEACHING FELLOW-C Work Phone: [facility] 12-14-2024 14:05-0500 Respiratory rate 18 /min Daniel Cardoso TEACHING FELLOW-C Work Phone: [facility] 12-14-2024 09:25-0500 Body temperature 97.5 [degF] Daniel Cardoso TEACHING FELLOW-C Work Phone: [facility] 12-14-2024 09:25-0500 Diastolic blood pressure 57 mm[Hg] Daniel Cardoso TEACHING FELLOW-C Work Phone: [facility] 12-14-2024 09:25-0500 Inhaled oxygen flow rate 4 L/min Daniel Cardoso TEACHING FELLOW-C Work Phone: [facility] 12-14-2024 09:25-0500 SaO2% (BldA) [Mass fraction] 90 % Daniel Cardoso TEACHING FELLOW-C Work Phone: [facility] 12-14-2024 09:25-0500 Systolic blood pressure 104 mm[Hg] Daniel Cardoso TEACHING FELLOW-C Work Phone: [facility] 12-14-2024 06:00-0500 Body weight 65.3 kg Daniel Cardoso TEACHING FELLOW-C Work Phone: [facility] 12-13-2024 17:05-0500 Body height 162.56 cm Daniel Cardoso TEACHING FELLOW-C Work Phone: [facility] 12-11-2024 12:00-0500 Inhaled oxygen concentration 40 % Daniel Cardoso TEACHING FELLOW-C Work Phone: [facility] 09-20-2024 09:43-0500 Body height 160 cm Daniel Cardoso TEACHING FELLOW Work Phone: [facility] 09-20-2024 09:43-0500 Body mass index (BMI) [Ratio] 24.13 kg/m2 Daniel Cardoso TEACHING FELLOW Work Phone: [facility] 09-20-2024 09:43-0500 Body temperature 96.69 [degF] Daniel Cardoso TEACHING FELLOW Work Phone: [facility] 09-20-2024 09:43-0500 Body weight 61.78 kg Daniel Cardoso TEACHING FELLOW Work Phone: [facility] 09-20-2024 09:43-0500 Diastolic blood pressure 74 mm[Hg] Daniel Cardoso TEACHING FELLOW Work Phone: [facility] 09-20-2024 09:43-0500 Heart rate 85 /min Daniel Cardoso TEACHING FELLOW Work Phone: [facility] 09-20-2024 09:43-0500 Respiratory rate 18 /min Daniel Cardoso TEACHING FELLOW Work Phone: [facility] 09-20-2024 09:43-0500 SaO2% (BldA) [Mass fraction] 94 % Daniel Cardoso TEACHING FELLOW Work Phone: [facility] [facility] 09-20-2024 09:43-0500 Systolic blood pressure 128 mm[Hg] Daniel Staffordk TEACHING FELLOW Work Phone: [facility] Healthcare Encounters Encounter Date Encounter Type Care Provider Facility Start: 01-14-2025 End: 01-14-2025 Roberto Carlos Rader MD Work Phone: [facility] Start: 01-14-2025 End: 01-14-2025 Roberto Carlos Rader MD Work Phone: [facility] Start: 01-14-2025 End: 01-14-2025 Transitional care manage srvc 14 day discharge Ian Rader MD Work Phone: [facility] Comment on above: Influenza A (Primary Dx); Chronic obstructive pulmonary disease, unspecified COPD type (CMS/HCC); Acute hypoxic respiratory failure (CMS/HCC); Type 2 diabetes mellitus without complication, without long-term current use of insulin (CMS/HCC); Primary hypertension (CMS/HCC); Benign neoplasm of cranial nerves (CMS/HCC); Type 2 diabetes mellitus with diabetic polyneuropathy ([facility]/HCC) Start: 01-04-2025 End: 01-04-2025 ambulatory Daniel Cardoso TEACHING FELLOW-C Work Phone: [facility] Work Phone: Start: 01-04-2025 End: 01-04-2025 Patient encounter procedure Daniel Cardoso TEACHING FELLOW-C Work Phone: [facility] Work Phone: Start: 01-01-2025 End: 01-01-2025 ambulatory Stephen Macias DO Work Phone: [facility] Comment on above: Acute hypoxic respir atory failure (CMS-HCC) (Primary Dx); Aspiration pneumonia, unspecified aspiration pneumonia type, unspecified laterality, unspecified part of lung (CMS-HCC); Chronic obstructive pulmonary disease, unspecified COPD type (CMS-HCC); Influenza A; Type 2 diabetes mellitus without complication, without long-term current use of insulin (CMS-HCC); Other abnormalities of gait and mobility; Anxiety Start: 12-28-2024 End: 12-28-2024 ambulatory Stephen Macias DO Work Phone: [facility] Comment on above: Acute hypoxic respir atory failure (CMS-HCC) (Primary Dx); Chronic obstructive pulmonary disease, unspecified COPD type (CMS-HCC); Influenza A; Other abnormalities of gait and mobility Start: 12-25-2024 End: 01-02-2025 ambulatory Stephen Macias DO Work Phone: [facility] Comment on above: Chronic obstructive pulmonary disease, unspecified COPD type (CMS-HCC) (Primary Dx); Influenza A; Other abnormalities of gait and mobility; Anxiety; Cigarette smoker Start: 12-18-2024 End: 12-24-2024 ambulatory Stephen Macias DO Work Phone: [facility] Comment on above: Acute hypoxic respir atory failure (CMS-HCC) (Primary Dx); Chronic obstructive pulmonary disease, unspecified COPD type (CMS-HCC); Influenza A; Aspiration pneumonia, unspecified aspiration pneumonia type, unspecified laterality, unspecified part of lung (CMS-HCC); Depression, unspecified depression type; Cigarette smoker; Type 2 diabetes mellitus without complication, without long-term current use of insulin ([facility]-HCC); Anxiety Start: 12-13-2024 Non-patient / Non-visit Margo Cardoso TEACHING FELLOW-C Work Phone: [facility] Work Phone: Start: 12-10-2024 Non-patient / Non-visit Margo saldivar Cardoso TEACHING FELLOW-C Work Phone: [facility] Work Phone: Start: 12-10-2024 Non-patient / Non-visit Margo saldivar Cardoso TEACHING FELLOW-C Work Phone: [facility] Work Phone: Start: 12-10-2024 Non-patient / Non-visit Margo saldivar Cardoso TEACHING FELLOW-C Work Phone: [facility] Work Phone: Start: 12-09-2024 End: 12-14-2024 Evaluation and management of inpatient Daniel Cardoso TEACHING FELLOW-C Work Phone: [facility] Work Phone: Start: 12-09-2024 End: 12-09-2024 ambulatory UNKNOWN PROVIDER Facility:[facility] Start: 12-09-2024 End: 12-11-2024 Clinisync Result Encounter Generic External Data Provider [facility] External Department Unsolicited Start: 12-09-2024 End: 12-11-2024 Clinisync Result Encounter Generic External Data Provider [facility] External Department Unsolicited Start: 12-06-2024 End: 12-06-2024 Refill Sabina Black MA [facility] Comment on above: 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 Start: 11-27-2024 End: 11-27-2024 Refill Sabina Black MA [facility] Comment on above: Asthma with COPD (ch ronic obstructive pulmonary disease) ([facility]) Start: 11-12-2024 End: 11-14-2024 Refill Daniel Cardoso TEACHING FELLOW Work Phone: [facility] Comment on above: 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 Start: 10-22-2024 End: 10-22-2024 Refill Daniel Cardoso TEACHING FELLOW Work Phone: [facility] Comment on above: Gastro-esophageal re flux disease without esophagitis Start: 10-22-2024 End: 10-22-2024 Refill Daniel Silvazpatrick TEACHING FELLOW Work Phone: [facility] Comment on above: Depression, unspecif ied ([facility]) Start: 09-20-2024 End: 09-20-2024 Bamboo flowsheet Daniel Silvazpatrick TEACHING FELLOW Work Phone: [facility] Start: 09-20-2024 End: 09-20-2024 Bamboo flowsheet Daniel Cardoso TEACHING FELLOW Work Phone: [facility] Start: 09-20-2024 End: 09-20-2024 Office outpatient visit 15 minutes Daniel Martineztrick TEACHING FELLOW Work Phone: [facility] Comment on above: Primary hypertension ([facility]) (Primary Dx); Type 2 diabetes mellitus without complication, without long-term current use of insulin ([facility]); Other hyperlipidemia ([facility]); Asthma with COPD (chronic obstructive pulmonary disease) ([facility]); Non-recurrent acute serous otitis media of left ear Start: 09-20-2024 End: 09-20-2024 ambulatory DANIEL CARDOSO Not Available Start: 09-11-2024 End: 09-11-2024 Refill Daniel Castorenapatrick TEACHING FELLOW Work Phone: [facility] Comment on above: Type 2 diabetes shanthi itus without complications (CMS/HCC) Hyperlipidemia, unsp ecified ([facility]) Other bursitis of el bow, left elbow Start: 09-03-2024 End: 09-03-2024 [facility] Comment on above: Asthma with COPD (ch ronic obstructive pulmonary disease) ([facility]/HCC) Start: 08-27-2024 End: 08-27-2024 Refill Daniel Cardoso TEACHING FELLOW Work Phone: [facility] Comment on above: [facility] ([facility]/HCC) Start: 08-01-2024 End: 08-02-2024 Refill Arturo Chanel MA [facility] Comment on above: Hyperlipidemia, unsp ecified (CMS/HCC); Other bursitis of elbow, left elbow; Depression, unspecified ([facility]/HCC); Type 2 diabetes mellitus without complications ([facility]/HCC) Start: 07-25-2024 End: 07-26-2024 Refill Arturo Chanel MA [facility] Comment on above: Other bursitis of el bow, left elbow Start: 07-23-2024 End: 07-23-2024 Refill Daniel Cardoso TEACHING FELLOW Work Phone: [facility] Comment on above: Type 2 diabetes shanthi itus without complications ([facility]); Hyperlipidemia, unspecified ([facility]) Start: 07-07-2024 End: 07-07-2024 Chart abstracting Daniel Cardoso TEACHING FELLOW Work Phone: [facility] Comment on above: 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 (Primary Dx) Start: 06-21-2024 End: 06-21-2024 ambulatory DANIEL CARDOSO Not Available Start: 03-08-2024 End: 03-08-2024 ambulatory SHAIKH HERO Not Available Start: 03-01-2024 End: 03-01-2024 ambulatory ARIELLE WHEELER Not Available Start: 01-26-2024 End: 01-26-2024 ambulatory SHAIKH HERO Not Available Start: 12-15-2023 End: 12-16-2023 ambulatory Arielle Wheeler [facility] Start: 12-15-2023 End: 12-15-2023 Patient encounter procedure Arielle Wheeler [facility] Start: 11-30-2023 End: 12-01-2023 ambulatory Arielle Wheeler Facility[facility] Start: 11-21-2023 End: 11-21-2023 ambulatory SHAIKH HERO Not Available Start: 10-28-2023 End: 11-10-2023 Pre-admission assessment Arielle Wheeler [facility] Start: 01-05-2023 End: 01-06-[address] GIANNA ISABEL Facility:[facility] Start: 04-26-2022 End: 04-27-[address] GIANNA ISABEL Facility:[facility] Start: 04-08-2022 End: 04-09-[address] GIANNA ISABEL Facility:[facility] Procedures Date Procedure Procedure Detail Performing Clinician Start: 12-11-2024 Plain chest X-ray Taylor any Cardoso TEACHING FELLOW-C Work Phone: Start: 12-10-2024 Plain chest X-ray Taylor any Cardoso TEACHING FELLOW-C Work Phone: Start: 12-09-2024 Plain X-ray abdomen Katy ttany Cardoso TEACHING FELLOW-C Work Phone: Start: 12-09-2024 Plain chest X-ray Taylor any Cardoso TEACHING FELLOW-C Work Phone: Start: 12-09-2024 BLOOD CULTURE 2 Generic External Data Provider Start: 12-09-2024 Aerobic microbial culture Daniel Cardoso TEACHING FELLOW-C Work Phone: Start: 12-09-2024 Bacteria identified in Blood by Culture Daniel Cardoso TEACHING FELLOW-C Work Phone: Start: 12-09-2024 Gram stain microscopy B rittany Cardoso TEACHING FELLOW-C Work Phone: Start: 09-20-2024 Hemoglobin glycosyla brendan a1c Daniel Cardoso TEACHING FELLOW Work Phone: Start: 01-16-2024 Mammography Daniel F itzpatrick TEACHING FELLOW Work Phone: Plan of Treatment Date Care Activity Detail Author Start: 11-14-2025 Screening for malign ant neoplasm of colon [facility] Start: 05-13-2025 Influenza vaccination Influenza Vacc ine (#1) [facility] Comment on above: Postponed from 07/15 (Patient Refused) Start: 04-16-2025 End: 04-16-2025 Patient encounter procedure 04/16/2025 11:00 AM EDT Office Visit [facility] [address] [place] [phone] Ian Rader MD [address] [place] [phone] [facility] Start: 03-20-2025 Hemoglobin A1c measurement Diabetes: Hemoglobin A1C [facility] Start: 03-14-2025 Glaucoma screening Diabetes: R etinopathy Screening [facility] Start: 03-08-2025 Medicare Annual Well ness (AWV) Medicare Annual Wellness (AWV) [facility] Start: 01-31-2025 End: 01-31-2025 Patient encounter procedure 01/31/2025 11:00 AM EDT Office Visit [facility] [place] [address] [place] [address] Tashia Polk PA [address] [place], [place] [id number] [facility] Start: 01-15-2025 Screening for malign ant neoplasm of breast Mammogram [facility] Start: 01-14-2025 End: 01-14-2025 Patient encounter procedure 01/14/2025 9:30 AM EST Office Visit [facility] [address] [place] [phone] Ian Rader MD [address] [place] [phone] Arrived [facility] Comment on above: Arrived Start: 01-11-2025 Urine screening for protein Diabetes: Urine Protein Screening [facility] Start: 12-20-2024 End: 12-20-2024 Patient encounter procedure 12/20/2024 10:00 AM EST Office Visit [facility] [address] [place] [phone] Daniel Cardoso NP [address] [place] [phone] [facility] Start: 12-14-2024 [facility] Start: 12-13-2024 Administration of prophylactic treatment [facility] Start: 12-13-2024 Referral to rehabilitation physician [facility] Start: 12-09-2024 [facility] Start: 12-09-2024 [facility] Start: 12-09-2024 Consultation [facility] Start: 12-09-2024 Hospital admission [facility] Start: 12-09-2024 Bacteria identified in Blood by Culture Blood Culture [facility] Start: 12-09-2024 Respiratory Ventilat ion, 24-96 Consecutive Hours Respiratory Ventilation, 24-96 Consecutive Hours [facility] Start: 11-27-2024 Pneumococcal Vaccine : 65+ Years (1 of 2 - PCV) Pneumococcal Vaccine: 65+ Years (1 of 2 - PCV) [facility] Comment on above: Postponed from 04/21 (Other Patient Reasons) Start: 10-10-2024 End: 10-10-2024 Patient encounter procedure 10/10/2024 9:20 AM EST Office Visit [facility] [address] [place] [address] Tashia Polk PA [address] [place] [address] [facility] [place] [address] Start: 09-20-2024 End: 09-20-2024 [facility] Comment on above: Arrived Start: 07-18-2024 End: 07-18-2024 Patient encounter procedure [facility] [place] [address] Start: 07-15-2024 Influenza vaccination [facility] Start: 01-13-2024 Hemoglobin A1c measurement Diabetes: Hemoglobin A1C [facility] Start: 2018 Fall Risk Screening Fall Risk Screen ing [facility] Start: 2003 Administration of varicella zoster vaccine Zoster (Shingles) Vaccine (1 of 2) [facility] Start: 1972 DTaP,Tdap and Td Vaccines (1 - Tdap) DTaP,Tdap and Td Vaccines (1 - Tdap) [facility] Start: 1971 Adult BMI Screening Adult BMI Screen ing [facility] Start: 1971 Diabetic foot examination Diabetic Foot Exam [facility] Start: 1965 Depression Screening Depression Scre ening [facility] Start: 1965 Tobacco Screening Tobacco Screening [facility] Start: 1959 Pneumococcal Vaccine : 65+ Years (1 of 2 - PCV) Pneumococcal Vaccine: 65+ Years (1 of 2 - PCV) [facility] Start: 1953 Glaucoma screening Diabetic Op hthalmology Exam [facility] Start: 1953 Screening for malign ant neoplasm of colon [facility] Start: 1953 Statin Use: Diabetic Statin Use: Claudine betic [facility] BLOOD CULTURE 2 BLOOD CULTURE 2 Lab Routine 12/09/2024 4:21 PM EST [facility] Patient referral [facility] Work Phone: Immunizations Immunization Date Immunization Notes Care Provider Keo veras 08-14-2023 Influenza, High-dose Seasonal, Quadrivalent, Preservative Free Daniel Cardoso TEACHING FELLOW Work Phone: [facility] 08-14-2023 influenza virus vaccine, unspecified formulation Daniel Cardoso TEACHING FELLOW Work Phone: [facility] Payers Date Payer Category Payer Medicaid [id number] 2024 Self-pay 2023 Medicare HMO [employer] Member Subscriber Plan / Payer (Effective 2023-Present) Name: Zuleyka Chaudhry Relation to Subscriber: Self Name: Zuleyka Chaudhry Payer ID: [id number] (NAIC) Group ID: [id number] Type: Not on file Address: [address] [place] [id number] 2021 Medicare (Managed Care) LINDA Ramirez [employer] [id number] 2021 Medicare [id number] 2016 Medicare [id number] 1959 Unknown [id number] 1953 Unknown [id number]. 593 1953 Unknown [id number] [id number]. 593 1953 Unknown [id number] 2.16.840.1.581692.3.579.2. 593 1953 Unknown [id number] 2.16.840.1.913726.3.579.2. 727 1953 Unknown [id number] 2.16.840.1.494521.3.579.2. 727 1953 Unknown [id number] 2.16.840.1.527863.3.579.2. 1259 1953 Unknown [id number] 2.16.840.1.313041.3.579.2. 9 1953 Unknown [id number] 2.16.840.1.104362.3.579.2. 1258 1953 Unknown [id number] 2.16.840.1.982080.3.579.2. 1258 1953 Unknown [id number] 2.16.840.1.921594.3.579.2. 1258 1953 Unknown [id number] 2.16.840.1.371610.3.579.2. 1258 1953 Unknown [id number] [id number]. 732 Unknown [id number] [id number]. 531 Social History Date Type Detail Facility Tobacco smoking status [facility] Start: 06-21-2024 End: 01-14-2025 Sex Assigned At [facility] Start: 06-21-2024 [facility] History of tobacco use Cigarette Smoker [facility] History of tobacco use Passive smoker [facility] Start: 11-29-2019 End: 06-21-2024 Tobacco use and exposure Smokeless tobacco non-user [facility] Start: 06-21-2024 End: 01-14-2025 Alcoholic beverage intake Lifetime non-drinker (finding) [facility] Start: 06-21-2024 End: 01-14-2025 History of Social function [facility] Start: 10-17-2023 Alcohol Comment Caffeine: 2-3 cups per day [facility] Start: 1955 Sex assigned at Not on file [facility] Start: 12-13-2024 Tobacco [facility] if ever smoked [facility] Start: 12-14-2024 End: 01-04-2025 Sex Female (finding) [facility] Start: 1955 Sex Assigned At Female F [facility] Start: 11-29-2019 End: 01-04-2025 Tobacco smoking status NHIS Ex-smoker [facility] History of tobacco use Current smoker [facility] Start: 02-19-2021 Alcoholic beverage intake Current non-drinker of alcohol (finding) [facility] Childcare Unknown [facility] Medical Equipment Procedure Code Equipment Code Equipment Origin al Text Equipment Identifier Dates [id number] Start: 11-21-2023 End: 11-20-2024 1 each in the morning. [id number] Start: 11-21-2023 End: 11-20-2024 Goals Date Patient Goal Desired Activity /State Functional Status Date Assessment Result Facility 12-14-2024 Functional status Patient at Baseline [facility] Work Phone: Mental Status Date Assessment Result Facility 12-14-2024 Cognitive function Cognitive Sta tus Patient at Baseline [facility] Work Phone: Clinical Notes 09-11-2024 to 01-14-2025 Ian Rader MD - 01/14/2025 9:55 AM Chante Rader MD - 01/14/2025 9:55 AM Chante Rader MD - 01/14/2025 9:54 AM Chante Rader MD - 01/14/2025 9:54 AM EST Note Date & Type Note Facility 01-14-2025 History of Present illness Narrative Associated Problem(s): Type 2 diabetes mellitus without complication, without long-term current use of insulin (CMS/HCC) BS controlled and monitor. Stick to ADA diet and limit carbs. Associated Problem(s): Primary hypertension (CMS/HCC) BP controlled and monitor PRN. Associated Problem(s): Influenza A Recent infection but improved and monitor. Associated Problem(s): COPD (chronic obstructive pulmonary disease) ([facility]) Breathing stable and continue inhalers. Use albuterol nebulized PRN. Script for new nebulizer machine to patient. Associated Problem(s): Acute hypoxic respiratory failure (CMS/[facility]) SpO2 stable and wean oxygen as tolerated. Images from the original note were not included. Subjective Patient ID: Zuleyka Chaudhry is a 69 y.o. female who presents for Follow-up (Hospital f/u), Sore Throat, and Earache (Right ear). Follow up from hospital and SNF. Patient found unresponsive at home and intubated by EMS. Brought to [facility] then transferred to [facility]. Admitted 12/09-12/14 and treated for influenza A and COPD exacerbation. Improved in hospital but not able to wean off oxygen. To SNF 12/14-01/04 for rehab. Stable since home. Getting home health and therapy. Continued weakness but performing exercises. Remains on oxyben. Mild SOB with exertion. Occasional cough and sputum. Reports needs new nebulizer machine. BS controlled 120-125. Tries to eat well and stick to ADA diet. Denies signs of elevated BS such as polyuria, polyphagia or polydipsia. Checking BP PRN and typically controlled. BP normal today. Taking medication daily and tolerating without side effects. Review of Systems Respiratory: Negative for cough, shortness of breath and wheezing. Cardiovascular: Negative for chest pain and palpitations. Gastrointestinal: Negative for abdominal pain, diarrhea, nausea and vomiting. Genitourinary: Negative for dysuria. Objective Physical Exam Constitutional: General: She is not in acute distress. Appearance: Normal appearance. HENT: Head: Normocephalic. Right Ear: Tympanic membrane normal. Left Ear: Tympanic membrane normal. Eyes: Extraocular Movements: Extraocular movements intact. Pupils: Pupils are equal, round, and reactive to light. Cardiovascular: Rate and Rhythm: Normal rate and regular rhythm. Heart sounds: No murmur heard. No friction rub. No gallop. Pulmonary: Effort: Pulmonary effort is normal. Breath sounds: Normal breath sounds. No wheezing, rhonchi or rales. Abdominal: General: Bowel sounds are normal. There is no distension. Palpations: Abdomen is soft. Tenderness: There is no abdominal tenderness. There is no guarding or rebound. Musculoskeletal: Cervical back: Neck supple. Right lower leg: No edema. Left lower leg: No edema. Neurological: Mental Status: She is alert. Assessment/Plan Problem List Items Addressed This Visit Type 2 diabetes mellitus without complication, without long-term current use of insulin (CMS/HCC) BS controlled and monitor. Stick to ADA diet and limit carbs. COPD (chronic obstructive pulmonary disease) (CMS/[facility]) Breathing stable and continue inhalers. Use albuterol nebulized PRN. Script for new nebulizer machine to patient. Relevant Medications albuterol HFA 90 mcg/act inhaler Primary hypertension (CMS/HCC) BP controlled and monitor PRN. Acute hypoxic respiratory failure ([facility]) SpO2 stable and wean oxygen as tolerated. Influenza A - Primary Recent infection but improved and monitor. documented in this encounter [facility] 01-01-2025 History of Present illness Narrative Patient Name: Zuleyka Chaudhry Date of : 1955 Date of Service: 01/01/2025 Facility: [facility] Type of Visit: Skilled Visit Subjective Zuleyka Chaudhry is a 69 y.o. female [facility]. Zuleyka is participating in therapy and doing well. She is going to go home on Tuesday. She did not have oxygen before she was hospitalized but still needs it. Her oxygen level was low when it was tested. Forms have been filled out for her to get it. She also needs an order for a wheelchair since she is not able to walk very far yet. It will help her do ADLs and IADLs. The lorazepam does help her relax at night and breathe easier. She would like some when she goes home. She has no new problems to report today. Allergies: Patient has no known allergies. Code Status: FULL CODE Physical Exam Vitals reviewed. Exam conducted with a hearing aid repair technician present (Priyank Ward MS3). Constitutional: General: She is not in acute distress. Appearance: She is normal weight. Comments: Wearing oxygen via nasal cannula. She is in a wheelchair in her room watching TV. HENT: Head: Normocephalic. Nose: Nose normal. Cardiovascular: Rate and Rhythm: Normal rate and regular rhythm. Heart sounds: Normal heart sounds. No murmur heard. Pulmonary: Effort: No respiratory distress. Breath sounds: Wheezing (expiratory) present. No rales. Abdominal: General: Bowel sounds are normal. There is no distension. Palpations: Abdomen is soft. There is no mass. Tenderness: There is no abdominal tenderness. There is no guarding or rebound. Hernia: No hernia is present. Musculoskeletal: Cervical back: Neck supple. Right lower leg: No edema. Left lower leg: No edema. Lymphadenopathy: Cervical: No cervical adenopathy. Skin: General: Skin is warm. Coloration: Skin is not jaundiced. Findings: No bruising or rash. Neurological: General: No focal deficit present. Mental Status: She is alert and oriented to person, place, and time. Psychiatric: Attention and Perception: Attention normal. Mood and Affect: Mood is anxious. Behavior: Behavior normal. Behavior is cooperative. Cognition and Memory: Cognition normal. Summary / Assessment / Plan 1. Acute hypoxic respiratory failure ([facility]) 2. Aspiration pneumonia, unspecified aspiration pneumonia type, unspecified laterality, unspecified part of lung ([facility]) 3. Chronic obstructive pulmonary disease, unspecified COPD type ([facility]) 4. Influenza A 5. Type 2 diabetes mellitus without complication, without long-term current use of insulin ([facility]) 6. Other abnormalities of gait and mobility 7. Anxiety Zuleyka will be discharged later this week. She is to follow up with her primary care physician within 2 weeks of discharge. I will allow her to take home what is left of her lorazepam prescription. She will get further prescription from her PCP. Continue oxygen. Orders written for oxygen and wheelchair. She needs it to help with her ADLs and IADLs. Continue other orders as directed. ELECTRONICALLY SIGNED BY: Stephen Macias DO documented in this encounter [facility] 12-28-2024 History of Present illness Narrative Patient Name: Zuleyka Chaudhry Date of : 1955 Date of Service: 12/28/2024 Facility: [facility] Type of Visit: Skilled Visit Subjective Zuleyka Chaudhry is a 69 y.o. female seen today at correction facility for therapy visit. Zuleyka is in therapy. She is slowly improving. Staff is needing a [id number] visit to document her oxygen in wheelchair needs. She is on oxygen at 4L/min via NC. She is only walking about 40 ft before she has to stop and rest. She as needed wheelchair frequently. That will help her do her ADLs and IADLs discharge. Her free they are in has been and discharge soon. She is oxygen dependent at this time. She has no new concerns. Allergies: Patient has no known allergies. Code Status: Full code BP 150/79 Pulse 79 Temp 36.2 C (97.2 F) Resp 18 SpO2 96% Physical Exam Vitals reviewed. Exam conducted with a hearing aid repair technician present (Priyank Ward MS3). Constitutional: General: She is not in acute distress. Appearance: She is normal weight. Comments: Wearing oxygen via nasal cannula. She is in a wheelchair in her room watching TV. HENT: Head: Normocephalic. Nose: Nose normal. Eyes: Extraocular Movements: Extraocular movements intact. Conjunctiva/sclera: Conjunctivae normal. Cardiovascular: Rate and Rhythm: Normal rate and regular rhythm. Heart sounds: Normal heart sounds. No murmur heard. Pulmonary: Effort: No respiratory distress. Breath sounds: Wheezing (expiratory) present. No rales. Abdominal: General: Bowel sounds are normal. There is no distension. Palpations: Abdomen is soft. There is no mass. Tenderness: There is no abdominal tenderness. There is no guarding or rebound. Hernia: No hernia is present. Musculoskeletal: Cervical back: Neck supple. Right lower leg: No edema. Left lower leg: No edema. Lymphadenopathy: Cervical: No cervical adenopathy. Skin: General: Skin is warm. Coloration: Skin is not jaundiced. Findings: No bruising or rash. Neurological: General: No focal deficit present. Mental Status: She is alert and oriented to person, place, and time. Psychiatric: Attention and Perception: Attention normal. Mood and Affect: Mood is anxious. Behavior: Behavior normal. Behavior is cooperative. Cognition and Memory: Cognition normal. Summary / Assessment / Plan 1. Acute hypoxic respiratory failure (CMS-HCC) 2. Chronic obstructive pulmonary disease, unspecified COPD type (CMS-HCC) 3. Influenza A 4. Other abnormalities of gait and mobility Zuleyka is going to be discharged soon. She is oxygen-dependent at this time. She needs to continue oxygen at 4 liters/minute via nasal cannula due to COPD and acute hypoxic respiratory failure. She can follow up with her primary care and/or specialist to determine if she needs to continue it. She needs a standard wheelchair to help her assist with ADLs and IADLs around the home after discharge. Continue therapy to reach maximum improvement. Medically stable. All medications reviewed and are medically necessary. ELECTRONICALLY SIGNED BY: Stephen Macias DO documented in this encounter [employer] 12-25-2024 History of Present illness Narrative Patient Name: Zuleyka Chaudhry Date of : 1955 Date of Service: 12/25/2024 Facility: [facility] Type of Visit: Skilled Visit Subjective Zuleyka Chaudhry is a 69 y.o. female seen today at correction facility for therapy visit. Zuleyka is participating in therapy. She has no new problems to report. We started lorazepam and that it is really helped her breathing and relaxation. She is using it mostly in the evening and it helps her sleep too. Her appetite is improved. She denies pain. No new problems. Allergies: Patient has no known allergies. Code Status: FULL CODE BP 124/75 Pulse 94 Temp 36.6 C (97.9 F) Resp 18 Wt 63.5 kg (140 lb) SpO2 93% BMI 24.03 kg/m Physical Exam Vitals reviewed. Exam conducted with a hearing aid repair technician present (Priyank Ward MS3). Constitutional: General: She is not in acute distress. Appearance: She is normal weight. She is ill-appearing (chronically). Comments: In her room eating lunch. She looks much better today. She is wearing oxygen via nasal cannula HENT: Head: Normocephalic. Eyes: Extraocular Movements: Extraocular movements intact. Conjunctiva/sclera: Conjunctivae normal. Cardiovascular: Rate and Rhythm: Normal rate and regular rhythm. Heart sounds: Normal heart sounds. No murmur heard. Pulmonary: Effort: No respiratory distress. Breath sounds: Wheezing (expiratory) present. No rhonchi or rales. Abdominal: General: Bowel sounds are normal. There is no distension. Palpations: Abdomen is soft. There is no mass. Tenderness: There is no abdominal tenderness. There is no guarding or rebound. Hernia: No hernia is present. Musculoskeletal: Right lower leg: No edema. Left lower leg: No edema. Skin: General: Skin is warm. Coloration: Skin is not jaundiced. Findings: No bruising or rash. Neurological: General: No focal deficit present. Mental Status: She is alert and oriented to person, place, and time. Psychiatric: Attention and Perception: Attention normal. Mood and Affect: Mood is anxious. Behavior: Behavior normal. Behavior is cooperative. Cognition and Memory: Cognition normal. Summary / Assessment / Plan 1. Chronic obstructive pulmonary disease, unspecified COPD type (CMS-HCC) 2. Influenza A 3. Other abnormalities of gait and mobility 4. Anxiety 5. Cigarette smoker She is doing much better. Medically stable. Continue therapy to reach maximum improvement. Continue lorazepam. She is using high risk medication with benefit. She is not having any side effects. It is helping her breathing and sleeping. Continue current regimen. All medications reviewed and are medically necessary. ELECTRONICALLY SIGNED BY: Stephen Macias DO documented in this encounter [facility] 12-18-2024 History of Present illness Narrative Patient Name: Zuleyka Chaudhry Date of : 1955 Date of Service: 12/18/2024 Facility: [facility] Type of Visit: Admission H&P Subjective Zuleyka Chaudhry is a 69 y.o. female seen today at correction facility for admission H&PLakeisha Gardiner presents [facility] following hospitalization at [facility]. She was diagnosed with acute hypoxic respiratory failure due to COPD, aspiration pneumonia and influenza a infection. She is weak and has difficulty ambulating. She has difficulty doing ADLs. She is here for therapy. She is very anxious. She would like something for that. She feels when she gets anxious it is more difficult for her to breathe. She is short of breath but her oxygenation is greater than 90%. She is currently on oxygen therapy. She was not on oxygen prior to getting sick. She does not recall the events around her previous hospitalization or why she went to the hospital but apparently she was found unresponsive on the floor. She did to be intubated and was placed on a ventilator. She was eventually weaned off. She was given a course of antibiotics, steroids and Tamiflu. She was told that she might have had a heart attack. She did have an echocardiogram which showed normal EF of 65-70%. Past Medical History: Diagnosis Date Acoustic neuroma ([facility]) Anemia Asymmetric SNHL (sensorineural hearing loss) Benign neoplasm of cranial nerve ([facility]) Bilateral cataracts Chronic bronchitis ([facility]) Chronic cough Constipation COPD (chronic obstructive pulmonary disease) ([facility]) Depression Diabetes mellitus ([facility]) history of GERD (gastroesophageal reflux disease) Hemorrhoids History of brain tumor removed in 1997, came back 2018 Hyperlipidemia Hypertension Macular degeneration Osteoarthritis of hip Personal history of tobacco use Positive occult stool blood test Right acoustic neuroma ([facility]) Splenic sequestration Vitamin D deficiency Past Surgical History: Procedure Laterality Date BRAIN TUMOR EXCISION 1997 tumor removed HYSTERECTOMY partial Family History Problem Relation Age of Onset Ovarian cancer Mother Colon cancer Cousin Allergies: Patient has no known allergies. Code Status: FULL CODE The following portions of the patient's history were reviewed and updated as appropriate: allergies, current medications, past family history, past medical history, past social history, past surgical history, problem list, and medication reconciliation was completed including current medication and post discharge medication. Review of Systems Constitutional: Positive for activity change, appetite change and fatigue. Respiratory: Positive for shortness of breath. Gastrointestinal: Negative. Genitourinary: Negative. Musculoskeletal: Positive for gait problem. Skin: Negative. Neurological: Positive for weakness. Psychiatric/Behavioral: Positive for dysphoric mood and sleep disturbance. The patient is nervous/anxious. Objective BP 112/65 Pulse 82 Temp 36.6 C (97.8 F) Resp 18 Ht 162.6 cm (5' 4 ) SpO2 92% BMI 28.32 kg/m Physical Exam Vitals reviewed. Exam conducted with a hearing aid repair technician present (Priyank Ward MS3). Constitutional: General: She is not in acute distress. Appearance: She is normal weight. She is ill-appearing (chronically). Comments: Wearing oxygen via nasal cannula HENT: Head: Normocephalic. Nose: Nose normal. Eyes: Extraocular Movements: Extraocular movements intact. Conjunctiva/sclera: Conjunctivae normal. Cardiovascular: Rate and Rhythm: Normal rate and regular rhythm. Heart sounds: Normal heart sounds. No murmur heard. Pulmonary: Effort: No respiratory distress. Breath sounds: Wheezing (expiratory) present. No rales. Abdominal: General: Bowel sounds are normal. There is no distension. Palpations: Abdomen is soft. There is no mass. Tenderness: There is no abdominal tenderness. There is no guarding or rebound. Hernia: No hernia is present. Musculoskeletal: Cervical back: Neck supple. Right lower leg: No edema. Left lower leg: No edema. Lymphadenopathy: Cervical: No cervical adenopathy. Skin: General: Skin is warm. Coloration: Skin is not jaundiced. Findings: No bruising or rash. Neurological: General: No focal deficit present. Mental Status: She is alert and oriented to person, place, and time. Psychiatric: Attention and Perception: Attention normal. Mood and Affect: Mood is anxious. Behavior: Behavior normal. Behavior is cooperative. Cognition and Memory: Cognition normal. Assessment/Plan Summary / Assessment / Plan 1. Acute hypoxic respiratory failure ([facility]) 2. Chronic obstructive pulmonary disease, unspecified COPD type ([facility]) 3. Influenza A 4. Aspiration pneumonia, unspecified aspiration pneumonia type, unspecified laterality, unspecified part of lung ([facility]) 5. Depression, unspecified depression type 6. Cigarette smoker 7. Type 2 diabetes mellitus without complication, without long-term current use of insulin ([facility]) 8. Anxiety Admit to [facility] for therapies. Finish antibiotic, steroids and Tamiflu. Continue other medications as ordered. Continue oxygen. Full code. Fair to good rehab potential. I am going to start lorazepam 0.5 mg every 8 hours for anxiety. Also she should have an albuterol unit dose aerosol treatment every 4 hours as needed for shortness a breath. She currently is wheezing and feels short of breath. All medications reviewed and are medically necessary. Plan to discharge home when able to. ELECTRONICALLY SIGNED BY: Stephen Macias DO documented in this encounter [employer] 12-14-2024 Discharge summary Note Date/Time December 14, 2024 2:47pm [facility] [address] [place] [address] Discharge Summary Signed Patient: Zuleyka Chaudhry MR#: [id number] : 1955 Acct:[id number] Age/Sex: 69 / F Adm Date: 5 Loc: Room: [address] [place] [address]: Daniel Garza MD Copies to: MD Daniel Cruz, TEACHING FELLOW-C~ Providers Date of Discharge: 12/14/24 Discharging Provider: Daniel Garza Primary Care Provider: Daniel Cardoso Consults: 12/09/24 22:31 Consult to Pulmonology Routine Comment: Consulting Provider: Cecilia Ruiz Reason For Exam: critical care Has Provider Been Notified: Yes Date of Notification: 12/10/24 Time of Notification: 07:49 12/10/24 06:00 Consult to Cardiology Routine Comment: Consulting Provider: [facility] - Cardiology Reason For Exam: elevated trop Has Provider Been Notified: Yes Date of Notification: 12/10/24 Time of Notification: 07:10 12/12/24 10:51 Consult to Occupational Therapy Routine Comment: Physician Instructions: Consult to OT for:: Evaluation and Treat Consult to Physical Therapy Routine Comment: Physician Instructions: Consult to PT for:: Evaluation and Treat 12/13/24 11:41 Consult to Physiatry Routine Comment: Consulting Provider: [facility] - Phys Med - Rehab Reason For Exam: rehab needs/post acute care planning Has Provider Been Notified: Yes Date of Notification: 12/13/24 Time of Notification: 11:41 Discharge Diagnosis (1) Acute hypoxic respiratory failure: (2) COPD exacerbation: (3) Aspiration pneumonia: (4) HTN (hypertension): (5) Diabetes type 2: (6) Dyslipidemia: (7) Depression: (8) Tobacco abuse: (9) Influenza A: (10) Hypotension: (11) Elevated troponin: Final Diagnosis Final Discharge Diagnosis: Acute hypoxic respiratory failure in setting of COPD exacerbation Summary Hospital Course Hospital course: This is a 69 y.o female with past medical history of COPD, dyslipidemia, hypertension, type 2 diabetes as well as GERD and depression. Patient came to [facility] after she was intubated by the EMS, she was found unresponsive by her boyfriend who does not know how long she was down upon arrival the patient was breathing but agonal and she was not responding and she did have a pulse. The family at the bedside mentioned that the patient has been complaining of shortness of breath for the last 2 days no chest pain no nausea no vomiting and no other concerns as per [facility] documentation. Labs at [facility] showed CBC with leukocytosis and left shift, hemoglobin of 10.6. Platelet count was 225. Chemistry showed sodium of 128 with potassium of3.1 and chloride of 95 as well as BUN of 18 and creatinine of 0.98 and bicarb of25.8. Lactic acid was 1.8. Magnesium was 1.3. Liver function were not impressive. Her blood glucose was 221 she did have a UA that showed no signs ofUTI. Her ABG was done at [facility] showed pH of 7.16 as well as PaCO2 of 71.5. She was intubated by EMS, was given 100 mg of succinylcholine 60 mg of ketamine and then 50 mg of fentanyl and 5 mg of Versed as well as 6.4 mg of Elconin. Also they reached out to cardiology at [facility] recommending again heparinization. EKG showed sinus tachycardia with RBBB. CXR showed calcified granuloma of the mediastinum. No acute consolidation. Stable emphysematous changes. Osseous structures appear intact. CT head withoutcontrast was negative for acute pathology. CT cervical spine without contrast was negative for acute fracture or dislocation. It did show multilevel degenerative changes of the cervical spine. Diffuse demineralization of bone. Patient was admitted in the ICU and was continued on mechanical ventilation and was started on bronchodilator steroid antibiotics and oseltamivir. Mold Shaker was consulted who recommended continuing the same. During the stay her patient is slowly weaned off mechanical ventilation. Due to elevated troponin cardiology was consulted who recommended echocardiography. Transthoracic echocardiography showed normal ejection fraction of 65 to 73% withnormal wall motion. sputum culture-light normal respiratory chase. Blood culture-no growth. Patient has been comfortably breathing on 3 to 4 L by nasal cannula. She is recommended to complete the course of steroids oseltamavir and antibiotics. She also recommended to wean down or discontinue smoking. Cardiology was consulted and believes elevated troponin likely in setting of type II OH. Follow-up echo showed normal ejection fraction of 65 to 70% with normal wall motion. PMR was consulted for possible inpatient rehab who recommended discharge to correction facility. Patient was waiting for pre-CERT to correction facility and is finally approved and is being dischargedthere. Condition Condition at Discharge: Stable Time Spent with Patient Time spent providing/coordinating discharge services (# min): 38 Discharge Plan Discharge Plan Patient Disposition: [facility]irement Facility Additional Instructions: Retirement Facility to manage care: - Full code - PT/OT eval and treat - Routine vital signs - Oxygen at 4L per nasal cannula, titrate as needed to keep pox > 90% - Mepilex border foam to Coccyx for protection. Change every 3 days and as needed. - Ensure plus daily with meals - Prescriptions: New prednisone 20 mg Tablet 40 mg PO DAILY 2 Days Qty: 4 0RF oseltamivir 30 mg Capsule 30 mg PO BID 2 Days Qty: 4 0RF amoxicillin-pot clavulanate [Augmentin] 500-125 mg tablet 1 tab PO BID 3 Days Qty: 6 0RF Continued losartan 50 mg tablet atorvastatin 40 mg tablet metformin 500 mg tablet meloxicam 7.5 mg tablet omeprazole 20 mg capsule,delayed release(DR/EC) albuterol sulfate 90 mcg/actuation HFA aerosol inhaler INHALATION sertraline 50 mg tablet Trelegy Ellipta 200-62.5-25 mcg blister with device INHALATION Follow Up: Daniel Cardoso, TEACHING FELLOW-C [Primary Care Provider] - (Follow-up with your Primary Care Provider after discharge from Retirement Facility) Exam Physical Exam Vital Signs: Temp Pulse Resp BP Pulse Ox O2 Del Method O2 Flow Rate 97.5 F L 91 18 104/57 L 90 L Nasal Cannula 4 12/14/24 09:25 12/14/24 14:05 12/14/24 14:05 12/14/24 09:25 12/14/24 09:25 12/14/24 09:25 12/14/24 09:25 FiO2 40 12/11/24 12:00 Narrative: General: Mechanically ventilated but following commands HEENT: head atraumatic, normocephalic, moist mucous membranes Neck: supple no masses, no lymphadenopathy CVS: regular rate and rhythm, no murmurs or gallops Respiratory: diminished breath sound bilaterally but no wheezing or crackles heart GI: soft, nondistended, nontender, positive bowel sounds with no organomegaly Extremity: moves all extremities, no restrictions of movements, no calf tenderness Neuro: Moves all extremities in all planes of motion. Skin: intact no rashes or lesions Diagnostic Studies Completed and Pending Studies Pending studies at discharge: 12/09/24 22:47 Blood Culture Stat 12/10/24 05:59 ECG 12 lead ECG Stat 12/10/24 12:02 EKG [ECG 12 lead ECG] Routine Preliminary micro results at discharge 12/09/24 22:47 Blood Culture - Preliminary Blood - Left Hand No Growth 4 Days 12/09/24 21:43 Blood Culture - Preliminary Blood - Left Forearm No Growth 4 Days Labs on day of discharge: 12/14/24 11:23: POC Glucose 154 12/14/24 07:24: POC Glucose 105 12/14/24 04:55: Corrected WBC 8.6, Uncorrected WBC Count 8.6, RBC 4.72, Hgb 13.4, Hct 40.4, MCV 85.6, MCH 28.5, MCHC 33.3, RDW 15.3, Plt Count 276, MPV 7.4,Neut % (Auto) 84.6, Lymph % (Auto) 7.0, Mckinley % (Auto) 8.2, Eos % (Auto) 0.0, Baso % (Auto) 0.2, Nucleat RBC Rel Count 0.1, Neut # (Auto) 7.2, Lymph # (Auto) 0.6 L, Mckinley # (Auto) 0.7, Eos # (Auto) 0.0, Baso # (Auto) 0.0 12/14/24 04:54: PHA Creatinine Clear 66.51, Sodium 131 L, Potassium 4.1, Chloride 93 L, Carbon Dioxide 29.4, Anion Gap 12.7, BUN 24, Creatinine 0.81, EstGFR (CKD-EPI) > 60.0, Glucose 145 H, Calcium 9.2, Total Bilirubin 0.6, AST 29, ALT 55 H, Alkaline Phosphatase 84, Total Protein 6.9, Albumin 3.7, Globulin 3.2,Albumin/Globulin Ratio 1.2 12/13/24 20:49: POC Glucose 277, POC Glucose Comment Glu2: cleaned meter 12/13/24 16:15: POC Glucose 141 Documented By: Daniel Garza MD 12/14/24 144 Signed By: <Electronically signed by Daniel Garza MD> 12/14/24 1447 [facility] Work Phone: [phone] Progress note Author Daniel Garza [facility] Note Date/Time December 14, 2024 1 :58pm [facility] [address] [place] [address] Hospitalist Progress Note Signed Patient: Zuleyka Chaudhry MR#: [id number] : 1955 Acct:[id number] Age/Sex: 69 / F Adm Date: 5 Loc: Room: [address] [place] [address] Type: ADM IN Attending Dr: Daniel Garza MD Copies to: ~ Date of Service: 12/14/2024 Subjective Subjective Narrative: This is a 69 y.o female with past medical history of COPD, dyslipidemia, hypertension, type 2 diabetes as well as GERD and depression. Patient came to [facility] after she was intubated by the EMS, she was found unresponsive by her boyfriend who does not know how long she was down upon arrival the patient was breathing but agonal and she was not responding and she did have a pulse. The family at the bedside mentioned that the patient has been complaining of shortness of breath for the last 2 days no chest pain no nausea no vomiting and no other concerns as per [facility] documentation. Labs at [facility] showed CBC with leukocytosis and left shift, hemoglobin of 10.6. Platelet count was 225. Chemistry showed sodium of 128 with potassium of3.1 and chloride of 95 as well as BUN of 18 and creatinine of 0.98 and bicarb of25.8. Lactic acid was 1.8. Magnesium was 1.3. Liver function were not impressive. Her blood glucose was 221 she did have a UA that showed no signs ofUTI. Her ABG was done at [facility] showed pH of 7.16 as well as PaCO2 of 71.5. She was intubated by EMS, was given 100 mg of succinylcholine 60 mg of ketamine and then 50 mg of fentanyl and 5 mg of Versed as well as 6.4 mg of Elconin. Also they reached out to cardiology at [facility] recommending again heparinization. EKG showed sinus tachycardia with RBBB. CXR showed calcified granuloma of the mediastinum. No acute consolidation. Stable emphysematous changes. Osseous structures appear intact. CT head withoutcontrast was negative for acute pathology. CT cervical spine without contrast was negative for acute fracture or dislocation. It did show multilevel degenerative changes of the cervical spine. Diffuse demineralization of bone. Patient was admitted in the ICU and was continued on mechanical ventilation and was started on bronchodilator steroid antibiotics and oseltamivir. Mold Shaker was consulted who recommended continuing the same. During the stay her patient is slowly weaned off mechanical ventilation. Due to elevated troponin cardiology was consulted who recommended echocardiography. Transthoracic echocardiography showed normal ejection fraction of 65 to 73% withnormal wall motion. sputum culture-light normal respiratory chase. Blood culture-no growth 1 day. Interval history-patient is comfortably breathing in 4 L by nasal cannula. Denies any complaints. Exam Physical Exam Vital Signs: Temp Pulse Resp BP Pulse Ox O2 Del Method O2 Flow Rate 97.5 F L 88 18 104/57 L 90 L Nasal Cannula 4 12/14/24 09:25 12/14/24 10:18 12/14/24 10:18 12/14/24 09:25 12/14/24 09:25 12/14/24 09:25 12/14/24 09:25 FiO2 40 12/11/24 12:00 Narrative: General: Mechanically ventilated but following commands HEENT: head atraumatic, normocephalic, moist mucous membranes Neck: supple no masses, no lymphadenopathy CVS: regular rate and rhythm, no murmurs or gallops Respiratory: diminished breath sound bilaterally but no wheezing or crackles heart GI: soft, nondistended, nontender, positive bowel sounds with no organomegaly Extremity: moves all extremities, no restrictions of movements, no calf tenderness Neuro: Moves all extremities in all planes of motion. Skin: intact no rashes or lesions Objective Lab Results 12/14/24 04:55 12/14/24 04:54 Microbiology Results Microbiology 12/09/24 22:47 Blood - Left Hand Blood Culture - Preliminary No Growth 4 Days 12/09/24 21:43 Blood - Left Forearm Blood Culture - Preliminary No Growth 4 Days Meds Allergies and Active Meds Allergies No Known Allergies Allergy (Verified 12/09/24 23:48) Active Meds: Active Medications Generic Name Dose Route Start Last Admin Trade Name Micheline PRN Reason Stop Dose Admin Acetaminophen 650 mg 12/10/24 10:28 12/14/24 04:19 Acetaminophen 650 Mg/20.3 Ml Oral.Susp PO 12/10/25 10:27 650 mg Q6H PRN Administration Fever or Pain Albuterol/Ipratropium 3 ml 12/11/24 20:00 12/14/24 10:17 Ipratropium/Albuterol 0.5-3 Mg 3 Ml Ampul.Neb INHALATION 12/11/25 19:59 3 ml QID.RESP LARS Administration Dextrose 0 gm 12/09/24 22:47 Dextrose 50% In Water 25 Gm/50 Ml Syringe IV-PUSH 12/09/25 22:46 PRN PRN Hypoglycemia Glucose 0 gm 12/09/24 22:47 Dextrose 40% Gel 15 Gm Tube PO 12/09/25 22:46 PRN PRN Hypoglycemia Heparin Sodium (Porcine) 5,000 unit 12/10/24 06:00 12/14/24 06:32 Heparin 5,000 Unit/Ml Vial SUBCUT 12/10/25 05:59 5,000 unit Q8HR LARS Administration Piperacillin Sod/Tazobactam Sod 4.5 gm in 100 mls @ 25 mls/hr 12/10/24 17:30 12/14/24 09:31 Zosyn IV 12/14/24 16:24 25 mls/hr Q8H LARS Administration Insulin Aspart 0 units 12/12/24 22:00 12/14/24 09:29 Insulin Aspart 300 Units/3 Ml SUBCUT 12/12/25 21:59 Not Given ACHS LARS Protocol Oseltamivir Phosphate 30 mg 12/13/24 21:00 12/14/24 09:30 Oseltamivir Phosphate 30 Mg Capsule PO 12/14/24 21:01 30 mg BID LARS Administration Pantoprazole Sodium 40 mg 12/15/24 09:00 Pantoprazole 40 Mg Tablet. PO 12/15/25 08:59 DAILY LARS Prednisone 40 mg 12/13/24 13:30 12/14/24 09:30 Prednisone 20 Mg Tablet PO 12/13/25 13:29 40 mg DAILY LARS Administration A&P - Hospitalist Assessment/Plan (1) Acute hypoxic respiratory failure: (2) COPD exacerbation: (3) Aspiration pneumonia: (4) HTN (hypertension): (5) Diabetes type 2: (6) Dyslipidemia: (7) Depression: (8) Tobacco abuse: (9) Influenza A: (10) Hypotension: (11) Elevated troponin: Plan Apneic and hypoxic respiratory failure in the setting of COPD exacerbation CO2 narcosis Tobacco abuse Hypotension could be from sedation but also need to rule out septic shock from superimposed bacterial pneumonia (given the viscid secretions from the ETT) Hyponatremia, appears to be due to dehydration (toast and beer) as the daughter told me that her mom always drinks pop and coffee no water. Elevated troponin likely type 2 OH -Continue on steroids, bronchodilator, oseltamivir and antibiotics -ICU consult-appreciate recommendation -As per her daughter, pt does not drink alcohol or use drugs, She is a very active smoker -HSQ for DVT prophylaxis -Pantoprazole IV 40 mg daily for GI prophylaxis -Full code -consulted cardio-believes elevated troponin likely in setting of type II OH. Follow-up echo showed normal ejection fraction of 65 to 70% with normal wall motion -PMR was consulted who recommended discharge to correction facility. Full code Documented By: Daniel Garza MD 12/14/241355 Signed By: <Electronically signed by Daniel Garza MD> 12/14/24 1358 [facility] Work Phone: [phone]) 269-850801-31-2025 Progress note Author Cecilia Ruiz [facility] Note Date/Time December 14, 2024 1 :18pm [facility] [address] [place] [address] Pulmonology Progress Note Signed Patient: Zuleyka Chaudhry MR#: [id number] : 1955 Acct:[id number] Age/Sex: 69 / F Adm Date: 5 Loc: 4 Room: [address] [place] [address] Type: ADM IN Attending Dr: Daniel Garza MD Copies to: ~ Date of Service: 12/14/2024 Subjective Subjective Narrative: Feels better with improved shortness of breath and cough. Still with with some clear sputum production. Exam Physical Exam Vital Signs: Temp Pulse Resp BP Pulse Ox O2 Del Method O2 Flow Rate 97.5 F L 88 18 104/57 L 90 L Nasal Cannula 4 12/14/24 09:25 12/14/24 10:18 12/14/24 10:18 12/14/24 09:25 12/14/24 09:25 12/14/24 09:25 12/14/24 09:25 FiO2 40 12/11/24 12:00 Narrative: General: Awake and alert, appears in minimal respiratory distress Neck: Supple. Pulmonary: Diminished breath sounds to both lung ernst without wheezing. Cardiovascular: Regular rate and rhythm. No murmurs Abdomen: Soft, nontender and nondistended. Extremities: No edema. Objective Intake and Output I&O - Last 24 Hours: Intake & Output 12/13/24 12/14/24 12/14/24 23:59 07:59 15:59 Intake Total 550 / 1770 250 / 250 Output Total 1500 / 2600 800 / 800 Balance -950 / -830 -550 / -550 Weight 65.3 kg Labs 12/14/24 04:55 12/14/24 04:54 Microbiology Micro: Microbiology 3 12/09/24 22:47 Blood Culture - Preliminary Blood - Left Hand No Growth 4 Days 12/09/24 21:43 Blood Culture - Preliminary Blood - Left Forearm No Growth 4 Days Assessment/Plan Assessment/Plan (1) Acute hypoxic respiratory failure: Plan: Likely secondary to underlying COPD with an acute exacerbation, likely triggeredby an acute influenza A infection. Evidence of bibasilar infiltrates on her chest x-ray as well with concern for superimposed bacterial pneumonia. Improving with current treatment and tolerating nasal cannula well. Will continue with current coverage with Zosyn for possible associated pneumonia. Continue with Tamiflu for 5 days. Continue systemic steroids and bronchodilator therapy. Will likely need supplemental oxygen on discharge to reevaluate the need for it as an outpatient. Documented By: Cecilia Ruiz MD 12/14/241316 Signed By: <Electronically signed by Cecilia Ruiz MD> 12/14/241317 [facility] Work Phone: 1(464) 476-732001-31-[address] [address] Discharge Summary Signed Patient: Zuleyka Chaudhry MR#: [id number] : 1955 Acct:[id number] Age/Sex: 69 / F Adm Date: 5 Loc: Room: [address] [place] [address]: Daniel Garza MD Copies to: MD Daniel Cruz NP-C~ Providers Date of Discharge: 12/14/24 Discharging Provider: Daniel Garza Primary Care Provider: Daniel Cardoso Consults: 12/09/24 22:31 Consult to Pulmonology Routine Comment: Consulting Provider: Cecilia Ruiz Reason For Exam: critical care Has Provider Been Notified: Yes Date of Notification: 12/10/24 Time of Notification: 07:49 12/10/24 06:00 Consult to Cardiology Routine Comment: Consulting Provider: [facility] - Cardiology Reason For Exam: elevated trop Has Provider Been Notified: Yes Date of Notification: 12/10/24 Time of Notification: 07:10 12/12/24 10:51 Consult to Occupational Therapy Routine Comment: Physician Instructions: Consult to OT for:: Evaluation and Treat Consult to Physical Therapy Routine Comment: Physician Instructions: Consult to PT for:: Evaluation and Treat 12/13/24 11:41 Consult to Physiatry Routine Comment: Consulting Provider: [facility] - Phys Med - Rehab Reason For Exam: rehab needs/post acute care planning Has Provider Been Notified: Yes Date of Notification: 12/13/24 Time of Notification: 11:41 Discharge Diagnosis (1) Acute hypoxic respiratory failure: (2) COPD exacerbation: (3) Aspiration pneumonia: (4) HTN (hypertension): (5) Diabetes type 2: (6) Dyslipidemia: (7) Depression: (8) Tobacco abuse: (9) Influenza A: (10) Hypotension: (11) Elevated troponin: Final Diagnosis Final Discharge Diagnosis: Acute hypoxic respiratory failure in setting of COPD exacerbation Summary Hospital Course Hospital course: This is a 69 y.o female with past medical history of COPD, dyslipidemia, hypertension, type 2 diabetes as well as GERD and depression. Patient came to [facility] after she was intubated by the EMS, she was found unresponsive by her boyfriend who does not know how long she was down upon arrival thepatient was breathing but agonal and she was not responding and she did have a pulse. The family atthe bedside mentioned that the patient has been complaining of shortness of breath for the last 2 days no chest pain no nausea no vomiting and no other concerns as per [facility] documentation. Labs at [facility] showed CBC with leukocytosis and left shift, hemoglobin of 10.6. Platelet count was 225. Chemistry showed sodium of 128 with potassium of3.1 and chloride of 95 as well as BUN of 18 and creatinine of 0.98 and bicarb of25.8. Lactic acid was 1.8. Magnesium was 1.3. Liver function werenot impressive. Her blood glucose was 221 she did have a UA that showed no signs ofUTI. Her ABG wasdone at [facility] showed pH of 7.16 as well as PaCO2 of 71.5. She was intubated by EMS, was given 100 mg of succinylcholine 60 mg of ketamine and then 50 mg of fentanyl and 5 mg of Versed as well as 6.4 mg of Elconin. Also they reached out to cardiology at [facility] recommending again heparinization. EKG showed sinus tachycardia with RBBB. CXR showed calcified granuloma of the mediastinum. No acute consolidation. Stable emphysematous changes. Osseous structures appear intact. CT head withoutcontrast was negative for acute pathology. CTcervical spine without contrast was negative for acute fracture or dislocation. It did show multilevel degenerative changes of the cervical spine. Diffuse demineralization of bone. Patient was admitted in the ICU and was continued on mechanical ventilation and was started on bronchodilator steroid antibiotics and oseltamivir. Mold Shaker was consulted who recommended continuing the same. Duringthe stay her patient is slowly weaned off mechanical ventilation. Due to elevated troponin cardiology was consulted who recommended echocardiography. Transthoracic echocardiography showed normal ejection fraction of 65 to 73% withnormal wall motion. sputum culture-light normal respiratory chase. Blood culture-no growth. Patient has been comfortably breathing on 3 to 4 L by nasal cannula. She is recommended to complete the course of steroids oseltamavir and antibiotics. She also recommended to wean down or discontinue smoking. Cardiology was consulted and believes elevated troponin likely in setting of type II OH. Follow-up echo showed normal ejection fraction of 65 to 70% with normal wall motion. PMR was consulted for possible inpatient rehab who recommended discharge to correction facility. Patient was waiting for pre-CERT to correction facility and is finally approved and isbeing dischargedthere. Condition Condition at Discharge: Stable Time Spent with Patient Time spent providing/coordinating discharge services (# min): 38 Discharge Plan Discharge Plan Patient Disposition: [facility] Facility Additional Instructions: Retirement Facility to manage care: - Full code - PT/OT eval and treat - Routine vital signs - Oxygen at 4L per nasal cannula, titrate as needed to keep pox > 90% - Mepilex border foam to Coccyx for protection. Change every 3 days and as needed. - Ensure plus daily with meals - Prescriptions: New prednisone 20 mg Tablet 40 mg PO DAILY 2 Days Qty: 4 0RF oseltamivir 30 mg Capsule 30 mg PO BID 2 Days Qty: 4 0RF amoxicillin-pot clavulanate [Augmentin] 500-125 mg tablet 1 tab PO BID 3 Days Qty: 6 0RF Continued losartan 50 mg tablet atorvastatin 40 mg tablet metformin 500 mg tablet meloxicam 7.5 mg tablet omeprazole 20 mg capsule,delayed release(DR/EC) albuterol sulfate 90 mcg/actuation HFA aerosol inhaler INHALATION sertraline 50 mg tablet Trelegy Ellipta 200-62.5-25 mcg blister with device INHALATION Follow Up: Daniel Cardoso, TEACHING FELLOW-C [Primary Care Provider] - (Follow-up with your Primary Care Provider after discharge from Retirement Facility) Exam Physical Exam Vital Signs: Temp Pulse Resp BP Pulse Ox O2 Del Method O2 Flow Rate 97.5 F L 91 18 104/57 L 90 L Nasal Cannula 4 12/14/24 09:25 12/14/24 14:05 12/14/24 14:05 12/14/24 09:25 12/14/24 09:25 12/14/24 09:25 12/14/24 09:25 FiO2 40 12/11/24 12:00 Narrative: General: Mechanically ventilated but following commands HEENT: head atraumatic, normocephalic, moist mucous membranes Neck: supple no masses, no lymphadenopathy CVS: regular rate and rhythm, no murmurs or gallops Respiratory: diminished breath sound bilaterally but no wheezing or crackles heart GI: soft, nondistended, nontender, positive bowel sounds with no organomegaly Extremity: moves all extremities, no restrictions of movements, no calf tenderness Neuro: Moves all extremities in all planes of motion. Skin: intact no rashes or lesions Diagnostic Studies Completed and Pending Studies Pending studies at discharge: 12/09/24 22:47 Blood Culture Stat 12/10/24 05:59 ECG 12 lead ECG Stat 12/10/24 12:02 EKG [ECG 12 lead ECG] Routine Preliminary micro results at discharge 12/09/24 22:47 Blood Culture - Preliminary Blood - Left Hand No Growth 4 Days 12/09/24 21:43 Blood Culture - Preliminary Blood - Left Forearm No Growth 4 Days Labs on day of discharge: 12/14/24 11:23: POC Glucose 154 12/14/24 07:24: POC Glucose 105 12/14/24 04:55: Corrected WBC 8.6, Uncorrected WBC Count 8.6, RBC 4.72, Hgb 13.4, Hct 40.4, MCV 85.6, MCH 28.5, MCHC 33.3, RDW 15.3, Plt Count 276, MPV 7.4,Neut % (Auto) 84.6, Lymph % (Auto) 7.0, Mckinley % (Auto) 8.2, Eos % (Auto) 0.0, Baso % (Auto) 0.2, Nucleat RBC Rel Count 0.1, Neut # (Auto) 7.2, Lymph # (Auto) 0.6 L, Mckinley # (Auto) 0.7, Eos # (Auto) 0.0, Baso # (Auto) 0.0 12/14/24 04:54: PHA Creatinine Clear 66.51, Sodium 131 L, Potassium 4.1, Chloride 93 L, Carbon Dioxide 29.4, Anion Gap 12.7, BUN 24, Creatinine 0.81, EstGFR (CKD-EPI) > 60.0, Glucose 145 H, Calcium 9.2, Total Bilirubin 0.6, AST 29, ALT 55 H, Alkaline Phosphatase 84, Total Protein 6.9, Albumin 3.7, Globulin 3.2,Albumin/Globulin Ratio 1.2 12/13/24 20:49: POC Glucose 277, POC Glucose Comment Glu2: cleaned meter 12/13/24 16:15: POC Glucose 141 Documented By: Daniel Garza MD 12/14/24 144 Signed By: 12/14/24 144 [facility]01-31-[address] [address] Hospitalist Progress Note Signed Patient: Zuleyka Chaudhry MR#: [id number] : 1955 Acct:[id number] Age/Sex: 69 / F Adm Date: 5 Loc: 4 Room: [address] [place] [address] Type: ADM IN Attending Dr: Daniel Garza MD Copies to: ~ Date of Service: 12/14/2024 Subjective Subjective Narrative: This is a 69 y.o female with past medical history of COPD, dyslipidemia, hypertension, type 2 diabetes as well as GERD and depression. Patient came to [facility] after she was intubated by the EMS, she was found unresponsive by her boyfriend who does not know how long she was down upon arrival thepatient was breathing but agonal and she was not responding and she did have a pulse. The family atthe bedside mentioned that the patient has been complaining of shortness of breath for the last 2 days no chest pain no nausea no vomiting and no other concerns as per [facility] documentation. Labs at [facility] showed CBC with leukocytosis and left shift, hemoglobin of 10.6. Platelet count was 225. Chemistry showed sodium of 128 with potassium of3.1 and chloride of 95 as well as BUN of 18 and creatinine of 0.98 and bicarb of25.8. Lactic acid was 1.8. Magnesium was 1.3. Liver function werenot impressive. Her blood glucose was 221 she did have a UA that showed no signs ofUTI. Her ABG wasdone at [facility] showed pH of 7.16 as well as PaCO2 of 71.5. She was intubated by EMS, was given 100 mg of succinylcholine 60 mg of ketamine and then 50 mg of fentanyl and 5 mg of Versed as well as 6.4 mg of Elconin. Also they reached out to cardiology at [facility] recommending again heparinization. EKG showed sinus tachycardia with RBBB. CXR showed calcified granuloma of the mediastinum. No acute consolidation. Stable emphysematous changes. Osseous structures appear intact. CT head withoutcontrast was negative for acute pathology. CTcervical spine without contrast was negative for acute fracture or dislocation. It did show multilevel degenerative changes of the cervical spine. Diffuse demineralization of bone. Patient was admitted in the ICU and was continued on mechanical ventilation and was started on bronchodilator steroid antibiotics and oseltamivir. Mold Shaker was consulted who recommended continuing the same. Duringthe stay her patient is slowly weaned off mechanical ventilation. Due to elevated troponin cardiology was consulted who recommended echocardiography. Transthoracic echocardiography showed normal ejection fraction of 65 to 73% withnormal wall motion. sputum culture-light normal respiratory chase. Blood culture-no growth 1 day. Interval history-patient is comfortably breathing in 4 L by nasal cannula. Denies any complaints. Exam Physical Exam Vital Signs: Temp Pulse Resp BP Pulse Ox O2 Del Method O2 Flow Rate 97.5 F L 88 18 104/57 L 90 L Nasal Cannula 4 12/14/24 09:25 12/14/24 10:18 12/14/24 10:18 12/14/24 09:25 12/14/24 09:12/14/24 09:12/14/24 09: FiO2 40 12/11/24 12:00 Narrative: General: Mechanically ventilated but following commands HEENT: head atraumatic, normocephalic, moist mucous membranes Neck: supple no masses, no lymphadenopathy CVS: regular rate and rhythm, no murmurs or gallops Respiratory: diminished breath sound bilaterally but no wheezing or crackles heart GI: soft, nondistended, nontender, positive bowel sounds with no organomegaly Extremity: moves all extremities, no restrictions of movements, no calf tenderness Neuro: Moves all extremities in all planes of motion. Skin: intact no rashes or lesions Objective Lab Results 12/14/24 04:55 12/14/24 04:54 Microbiology Results Microbiology 12/09/24 22:47 Blood - Left Hand Blood Culture - Preliminary No Growth 4 Days 12/09/24 21:43 Blood - Left Forearm Blood Culture - Preliminary No Growth 4 Days Meds Allergies and Active Meds Allergies No Known Allergies Allergy (Verified 12/09/24 23:48) Active Meds: Active Medications Generic Name Dose Route Start Last Admin Trade Name Freq PRN Reason Stop Dose Admin Acetaminophen 650 mg 12/10/24 10:28 12/14/24 04:19 Acetaminophen 650 Mg/20.3 Ml Oral.Susp PO 12/10/25 10:27 650 mg Q6H PRN Administration Fever or Pain Albuterol/Ipratropium 3 ml 12/11/24 20:00 12/14/24 10:17 Ipratropium/Albuterol 0.5-3 Mg 3 Ml Ampul.Neb INHALATION 12/11/25 19:59 3 ml QID.RESP LARS Administration Dextrose 0 gm 12/09/24 22:47 Dextrose 50% In Water 25 Gm/50 Ml Syringe IV-PUSH 12/09/25 22:46 PRN PRN Hypoglycemia Glucose 0 gm 12/09/24 22:47 Dextrose 40% Gel 15 Gm Tube PO 12/09/25 22:46 PRN PRN Hypoglycemia Heparin Sodium (Porcine) 5,000 unit 12/10/24 06:00 12/14/24 06:32 Heparin 5,000 Unit/Ml Vial SUBCUT 12/10/25 05:59 5,000 unit Q8HR LARS Administration Piperacillin Sod/Tazobactam Sod 4.5 gm in 100 mls @ 25 mls/hr 12/10/24 17:30 12/14/24 09:31 Zosyn IV 12/14/24 16:24 25 mls/hr Q8H LARS Administration Insulin Aspart 0 units 12/12/24 22:00 12/14/24 09:29 Insulin Aspart 300 Units/3 Ml SUBCUT 12/12/25 21:59 Not Given ACHS LARS Protocol Oseltamivir Phosphate 30 mg 12/13/24 21:00 12/14/24 09:30 Oseltamivir Phosphate 30 Mg Capsule PO 12/14/24 21:01 30 mg BID LARS Administration Pantoprazole Sodium 40 mg 12/15/24 09:00 Pantoprazole 40 Mg Tablet. PO 12/15/25 08:59 DAILY LARS Prednisone 40 mg 12/13/24 13:30 12/14/24 09:30 Prednisone 20 Mg Tablet PO 12/13/25 13:29 40 mg DAILY LARS Administration A&P - Hospitalist Assessment/Plan (1) Acute hypoxic respiratory failure: (2) COPD exacerbation: (3) Aspiration pneumonia: (4) HTN (hypertension): (5) Diabetes type 2: (6) Dyslipidemia: (7) Depression: (8) Tobacco abuse: (9) Influenza A: (10) Hypotension: (11) Elevated troponin: Plan Apneic and hypoxic respiratory failure in the setting of COPD exacerbation CO2 narcosis Tobacco abuse Hypotension could be from sedation but also need to rule out septic shock from superimposed bacterial pneumonia (given the viscid secretions from the ETT) Hyponatremia, appears to be due to dehydration (toast and beer) as the daughter told me that her mom always drinks pop and coffee no water. Elevated troponin likely type 2 OH -Continue on steroids, bronchodilator, oseltamivir and antibiotics -ICU consult-appreciate recommendation -As per her daughter, pt does not drink alcohol or use drugs, She is a very active smoker -HSQ for DVT prophylaxis -Pantoprazole IV 40 mg daily for GI prophylaxis -Full code -consulted cardio-believes elevated troponin likely in setting of type II OH. Follow-up echo showednormal ejection fraction of 65 to 70% with normal wall motion -PMR was consulted who recommended discharge to correction facility. Full code Documented By: Daniel Garza MD 12/14/24 1356 Signed By: 12/14/24 1358 [facility]01-31-20[place] [address] Pulmonology Progress Note Signed Patient: Zuleyka Chaudhry MR#: [id number] : 1955 Acct:[id number] Age/Sex: 69 / F Adm Date: 5 Loc: Room: [address] [place] [address] Type: ADM IN Attending Dr: Daniel Garza MD Copies to: ~ Date of Service: 12/14/2024 Subjective Subjective Narrative: Feels better with improved shortness of breath and cough. Still with with some clear sputum production. Exam Physical Exam Vital Signs: Temp Pulse Resp BP Pulse Ox O2 Del Method O2 Flow Rate 97.5 F L 88 18 104/57 L 90 L Nasal Cannula 4 12/14/24 09:25 12/14/24 10:18 12/14/24 10:18 12/14/24 09:25 12/14/24 09:25 12/14/24 09:25 12/14/24 09:25 FiO2 40 12/11/24 12:00 Narrative: General: Awake and alert, appears in minimal respiratory distress Neck: Supple. Pulmonary: Diminished breath sounds to both lung ernst without wheezing. Cardiovascular: Regular rate and rhythm. No murmurs Abdomen: Soft, nontender and nondistended. Extremities: No edema. Objective Intake and Output I&O - Last 24 Hours: Intake & Output 12/13/24 12/14/24 12/14/24 23:59 07:59 15:59 Intake Total 550 / 1770 250 / 250 Output Total 1500 / 2600 800 / 800 Balance -950 / -830 -550 / -550 Weight 65.3 kg Labs 12/14/24 04:55 12/14/24 04:54 Microbiology Micro: Microbiology 3 12/09/24 22:47 Blood Culture - Preliminary Blood - Left Hand No Growth 4 Days 12/09/24 21:43 Blood Culture - Preliminary Blood - Left Forearm No Growth 4 Days Assessment/Plan Assessment/Plan (1) Acute hypoxic respiratory failure: Plan: Likely secondary to underlying COPD with an acute exacerbation, likely triggeredby an acute influenza A infection. Evidence of bibasilar infiltrates on her chest x-ray as well with concern for superimposed bacterial pneumonia. Improving with current treatment and tolerating nasal cannula well. Will continue with current coverage with Zosyn for possible associated pneumonia. Continue with Tamiflu for 5 days. Continue systemic steroids and bronchodilator therapy. Will likely need supplemental oxygen on discharge to reevaluate the need for it as an outpatient. Documented By: Cecilia Ruiz MD 12/14/241316 Signed By: 12/14/24 1318 [facility]01-30-2025 Progress note Author Cecilia Ruiz [facility] Note Date/Time December 13, 2024 1 :53pm [facility] [address] [place] [address] Pulmonology Progress Note Signed Patient: Zuleyka Chaudhry MR#: [id number] : 1955 Acct:[id number] Age/Sex: 69 / F Adm Date: 5 Loc: Room: [address] [place] [address] Type: ADM IN Attending Dr: Daniel Garza MD Copies to: ~ Date of Service: 12/13/2024 Subjective Subjective Narrative: Feels better today and remains on nasal cannula. Still with intermittent cough with some clear sputum production. Exam Physical Exam Vital Signs: Temp Pulse Resp BP Pulse Ox O2 Del Method O2 Flow Rate 98.4 F 82 18 146/77 H 98 Nasal Cannula 5 12/13/24 11:13 12/13/24 11:59 12/13/24 11:59 12/13/24 11:13 12/13/24 11:13 12/13/24 11:13 12/13/24 11:13 FiO2 40 12/11/24 12:00 Narrative: General: Awake and alert, appears in minimal respiratory distress Neck: Supple. Pulmonary: Diminished breath sounds to both lung ernst without wheezing. Cardiovascular: Regular rate and rhythm. No murmurs Abdomen: Soft, nontender and nondistended. Extremities: No edema. Objective Intake and Output I&O - Last 24 Hours: Intake & Output 12/12/24 12/13/24 12/13/24 23:59 07:59 15:59 Intake Total 300 / 1160 340 / 1120 780 / 1120 Output Total 900 / 3550 1100 / 1100 Balance -600 / -2390 -760 / 20 780 / 20 Labs 12/13/24 04:47 12/13/24 04:47 Microbiology Micro: Microbiology 3 12/09/24 22:47 Blood Culture - Preliminary Blood - Left Hand No Growth 3 Days 12/09/24 21:43 Blood Culture - Preliminary Blood - Left Forearm No Growth 3 Days 12/09/24 21:45 Aerobic Culture - Final Sputum - Endotrachael Light Normal Respiratory Chase 2 Days Gram Stain - Final Assessment/Plan Assessment/Plan (1) Acute hypoxic respiratory failure: Plan: Likely secondary to underlying COPD with an acute exacerbation, likely triggeredby an acute influenza A infection. Evidence of bibasilar infiltrates on her chest x-ray as well with concern for superimposed bacterial pneumonia. Improving with current treatment and tolerating nasal cannula well. Will continue with current coverage with Zosyn for possible associated pneumonia. Continue with Tamiflu for 5 days. Continue systemic steroids and bronchodilator therapy. Cut down her systemic steroid dose. Documented By: Cecilia Ruiz MD 12/13/24 1351 Signed By: <Electronically signed by Cecilia Ruiz MD> 12/13/24 1353 [facility] Work Phone: 1([phone]) 722-312001-30-2025 Progress note Author Daniel Garza [facility] Note Date/Time December 13, 2024 1 :41pm [facility] [address] [place] [address] Hospitalist Progress Note Signed Patient: Zuleyka Chaudhry MR#: [id number] : 1955 Acct:[id number] Age/Sex: 69 / F Adm Date: 5 Loc: 4P Room: [address] [place] [address] Type: ADM IN Attending Dr: Daniel Garza MD Copies to: ~ Date of Service: 12/13/2024 Subjective Subjective Narrative: This is a 69 y.o female with past medical history of COPD, dyslipidemia, hypertension, type 2 diabetes as well as GERD and depression. Patient came to [facility] after she was intubated by the EMS, she was found unresponsive by her boyfriend who does not know how long she was down upon arrival the patient was breathing but agonal and she was not responding and she did have a pulse. The family at the bedside mentioned that the patient has been complaining of shortness of breath for the last 2 days no chest pain no nausea no vomiting and no other concerns as per [facility] documentation. Labs at [facility] showed CBC with leukocytosis and left shift, hemoglobin of 10.6. Platelet count was 225. Chemistry showed sodium of 128 with potassium of3.1 and chloride of 95 as well as BUN of 18 and creatinine of 0.98 and bicarb of25.8. Lactic acid was 1.8. Magnesium was 1.3. Liver function were not impressive. Her blood glucose was 221 she did have a UA that showed no signs ofUTI. Her ABG was done at [facility] showed pH of 7.16 as well as PaCO2 of 71.5. She was intubated by EMS, was given 100 mg of succinylcholine 60 mg of ketamine and then 50 mg of fentanyl and 5 mg of Versed as well as 6.4 mg of Elconin. Also they reached out to cardiology at [facility] recommending again heparinization. EKG showed sinus tachycardia with RBBB. CXR showed calcified granuloma of the mediastinum. No acute consolidation. Stable emphysematous changes. Osseous structures appear intact. CT head withoutcontrast was negative for acute pathology. CT cervical spine without contrast was negative for acute fracture or dislocation. It did show multilevel degenerative changes of the cervical spine. Diffuse demineralization of bone. Patient was admitted in the ICU and was continued on mechanical ventilation and was started on bronchodilator steroid antibiotics and oseltamivir. Mold Shaker was consulted who recommended continuing the same. During the stay her patient is slowly weaned off mechanical ventilation. Due to elevated troponin cardiology was consulted who recommended echocardiography. Transthoracic echocardiography showed normal ejection fraction of 65 to 73% withnormal wall motion. sputum culture-light normal respiratory chase. Blood culture-no growth 1 day. Interval history-patient is comfortably breathing in 4 to 5 L by nasal cannula. Denies any complaints. Will complete 5-day course of Zosyn tomorrow. Exam Physical Exam Vital Signs: Temp Pulse Resp BP Pulse Ox O2 Del Method O2 Flow Rate 98.4 F 82 18 146/77 H 98 Nasal Cannula 5 12/13/24 11:13 12/13/24 11:59 12/13/24 11:59 12/13/24 11:13 12/13/24 11:13 12/13/24 11:13 12/13/24 11:13 FiO2 40 12/11/24 12:00 Narrative: General: Mechanically ventilated but following commands HEENT: head atraumatic, normocephalic, moist mucous membranes Neck: supple no masses, no lymphadenopathy CVS: regular rate and rhythm, no murmurs or gallops Respiratory: diminished breath sound bilaterally but no wheezing or crackles heart GI: soft, nondistended, nontender, positive bowel sounds with no organomegaly Extremity: moves all extremities, no restrictions of movements, no calf tenderness Neuro: Moves all extremities in all planes of motion. Skin: intact no rashes or lesions Objective Lab Results 12/13/24 04:47 12/13/24 04:47 Microbiology Results Microbiology 12/09/24 22:47 Blood - Left Hand Blood Culture - Preliminary No Growth 3 Days 12/09/24 21:43 Blood - Left Forearm Blood Culture - Preliminary No Growth 3 Days 12/09/24 21:45 Sputum - Endotrachael Aerobic Culture - Final Light Normal Respiratory Chase 2 Days 12/09/24 21:45 Sputum - Endotrachael Gram Stain - Final Meds Allergies and Active Meds Allergies No Known Allergies Allergy (Verified 12/09/24 23:48) Active Meds: Active Medications Generic Name Dose Route Start Last Admin Trade Name Freq PRN Reason Stop Dose Admin Acetaminophen 650 mg 12/10/24 10:28 12/10/24 11:34 Acetaminophen 650 Mg/20.3 Ml Oral.Susp PO 12/10/25 10:27 650 mg Q6H PRN Administration Fever or Pain Albuterol/Ipratropium 3 ml 12/11/24 20:00 12/13/24 11:59 Ipratropium/Albuterol 0.5-3 Mg 3 Ml Ampul.Neb INHALATION 12/11/25 19:59 3 ml QID.RESP LARS Administration Dextrose 0 gm 12/09/24 22:47 Dextrose 50% In Water 25 Gm/50 Ml Syringe IV-PUSH 12/09/25 22:46 PRN PRN Hypoglycemia Glucose 0 gm 12/09/24 22:47 Dextrose 40% Gel 15 Gm Tube PO 12/09/25 22:46 PRN PRN Hypoglycemia Heparin Sodium (Porcine) 5,000 unit 12/10/24 06:00 12/13/24 13:11 Heparin 5,000 Unit/Ml Vial SUBCUT 12/10/25 05:59 5,000 unit Q8HR LARS Administration Piperacillin Sod/Tazobactam Sod 4.5 gm in 100 mls @ 25 mls/hr 12/10/24 17:30 12/13/24 09:58 Zosyn IV 12/14/24 16:24 25 mls/hr Q8H LARS Administration Insulin Aspart 0 units 12/12/24 22:00 12/13/24 11:38 Insulin Aspart 300 Units/3 Ml SUBCUT 12/12/25 21:59 Not Given ACHS LARS Protocol Oseltamivir Phosphate 30 mg 12/13/24 21:00 Oseltamivir Phosphate 30 Mg Capsule PO 12/14/24 21:01 BID LARS Pantoprazole Sodium 40 mg 12/10/24 09:00 12/13/24 09:48 Pantoprazole 40 Mg Vial IV-PUSH 12/10/25 08:59 Not Given DAILY LARS Prednisone 40 mg 12/13/24 13:30 12/13/24 13:07 Prednisone 20 Mg Tablet PO 12/13/25 13:29 40 mg DAILY LARS Administration Sodium Chloride 10 ml 12/09/24 22:08 12/12/24 08:49 Sodium Chloride 0.9 % 10 Ml Vial.Pf INJECTION 12/09/25 22:07 10 ml PRN PRN Administration Dilution Sodium Chloride 10 ml 12/09/24 22:08 12/13/24 02:21 Sodium Chloride 0.9 % 10 Ml Syringe IV-PUSH 12/09/25 22:07 10 ml PRN PRN Administration Flush A&P - Hospitalist Assessment/Plan (1) Acute hypoxic respiratory failure: (2) COPD exacerbation: (3) Aspiration pneumonia: (4) HTN (hypertension): (5) Diabetes type 2: (6) Dyslipidemia: (7) Depression: (8) Tobacco abuse: (9) Influenza A: (10) Hypotension: (11) Elevated troponin: Plan Apneic and hypoxic respiratory failure in the setting of COPD exacerbation CO2 narcosis Tobacco abuse Hypotension could be from sedation but also need to rule out septic shock from superimposed bacterial pneumonia (given the viscid secretions from the ETT) Hyponatremia, appears to be due to dehydration (toast and beer) as the daughter told me that her mom always drinks pop and coffee no water. Elevated troponin likely type 2 OH -Continue on steroids, bronchodilator, oseltamivir and antibiotics -ICU consult-appreciate recommendation -As per her daughter, pt does not drink alcohol or use drugs, She is a very active smoker -HSQ for DVT prophylaxis -Pantoprazole IV 40 mg daily for GI prophylaxis -Full code -consulted cardio-believes elevated troponin likely in setting of type II OH. Follow-up echo showed normal ejection fraction of 65 to 70% with normal wall motion -PMR was consulted who recommended discharge to correction facility. Full code Documented By: Daniel Garza MD 12/13/24 1337 Signed By: <Electronically signed by Daniel Garza MD> 12/13/[address] [facility] Work Phone: [phone]) 879-724001-30-2025 Consult note Author Dave Bazan [facility] Note Date/Time December 13, 2024 1 :29pm [facility] [address] [place] [address] Physiatry (Rehab) Consult Note Signed Patient: Zuleyka Chaudhry MR#: [id number] : 1955 Acct:[id number] Age/Sex: 69 / F Adm Date: 5 Loc: Room: [address] [place] [address] Type: ADM IN Attending Dr: Daniel Garza MD Copies to: MD Daniel Cruz NP-C Christian D Siebenaler, MD~ HPI Consult Date: 12/13/24 Requesting Physician: Daniel Garza MD Primary Care Provider: Daniel N Cardoso, TEACHING FELLOW-C Consult Narrative HPI: Ms. Chaudhry is a 69 year old female with PMH COPD, dyslipidemia, hypertension, type2 diabetes as well as GERD and depression. The patient was transferred [facility] from [facility] after being found unresponsive and being intubated by EMS. She hadreportedly been having worsening SOB a few days prior to presentation. She did initially require pressor support due to hypotension which has resolved. She tested positive for Influenza A and likely had a COPD exacerbation which led to her acute respiratory failure. She remains on Zosyn for concern for possible superimposed pneumonia. Thus far cultures have remained negative. The patient was able to be extubated on 12/11. She has remained on NC since. The patient lives with her boyfriend. She is IND at baseline. She has participated in OOB therapy. Min A for ambulation 2'. I met with the patient today. She is resting in her recliner next to her bed. Appears in no distress currently. She does admit to some SOB today but is breathing comfortably on NC. She denies chest pain, fever, chills. She reports that she continues to have a productive cough. Review of Systems Review of Systems All other systems reviewed & are negative unless noted below or in HPI [facility] Medical History Depressed Acute hypoxic respiratory failure Depression Dyslipidemia Diabetes type 2 HTN (hypertension) COPD exacerbation Social History Smoking Status: Unknown if ever smoked Meds Medications and Allergies Allergies No Known Allergies Allergy (Verified 12/09/24 23:48) Home Medications albuterol sulfate 90 mcg/actuation aerosol inhaler inhalation 12/10/24 [History] atorvastatin 40 mg tablet mg 12/10/24 [History] fluticasone fur. 200 mcg-umeclid 62.5 mcg-vilant 25 mcg inhalat.powder (Trelegy Ellipta) inhalation 12/10/24 [History] losartan 50 mg tablet mg 12/10/24 [History] meloxicam 7.5 mg tablet mg 12/10/24 [History] metformin 500 mg tablet mg 12/10/24 [History] omeprazole 20 mg capsule,delayed release mg 12/10/24 [History] sertraline 50 mg tablet mg 12/10/24 [History] Exam Physical Exam Vital Signs: Temp Pulse Resp BP Pulse Ox O2 Del Method O2 Flow Rate 98.4 F 82 18 146/77 H 98 Nasal Cannula 5 12/13/24 11:13 12/13/24 11:59 12/13/24 11:59 12/13/24 11:13 12/13/24 11:13 12/13/24 11:13 12/13/24 11:13 FiO2 40 12/11/24 12:00 Narrative: Gen: Awake, oriented, cooperative. HEENT: Atraumatic, PERRL, EOMI Resp: No respiratory distress Cardio: Extremities well perfused MSK: Moves all extremities spontaneously Neuro: CN grossly intact Skin: No swelling, erythema, ecchymosis appreciated Psych: Mood and affect normal Results - Phys. Rehab Labs Labs: Laboratory Results - last 24 hr 12/12/24 12/12/24 12/13/24 17:49 21:07 04:47 Corrected WBC 10.6 Uncorrected WBC Count 10.6 RBC 4.68 Hgb 13.4 Hct 40.5 MCV 86.4 MCH 28.5 MCHC 33.0 RDW 15.4 H Plt Count 302 MPV 7.3 Neut % (Auto) 87.0 Lymph % (Auto) 6.4 Mckinley % (Auto) 6.5 Eos % (Auto) 0.0 Baso % (Auto) 0.1 Nucleat RBC Rel Count 0.1 Neut # (Auto) 9.3 H Lymph # (Auto) 0.7 L Mckinley # (Auto) 0.7 Eos # (Auto) 0.0 Baso # (Auto) 0.0 PHA Creatinine Clear 54.42 Sodium 136 Potassium 4.1 Chloride 95 L Carbon Dioxide 30.8 Anion Gap 14.3 BUN 22 Creatinine 0.99 Est GFR (CKD-EPI) > 60.0 Glucose 97 POC Glucose 107 114 POC Glucose Comment Glu2: cleaned meter Calcium 8.9 Total Bilirubin 0.5 AST 38 ALT 65 H Alkaline Phosphatase 84 Total Protein 6.9 Albumin 3.8 Globulin 3.1 Albumin/Globulin Ratio 1.2 12/13/24 12/13/24 07:33 11:21 Corrected WBC Uncorrected WBC Count RBC Hgb Hct MCV MCH MCHC RDW Plt Count MPV Neut % (Auto) Lymph % (Auto) Mckinley % (Auto) Eos % (Auto) Baso % (Auto) Nucleat RBC Rel Count Neut # (Auto) Lymph # (Auto) Mckinley # (Auto) Eos # (Auto) Baso # (Auto) PHA Creatinine Clear Sodium Potassium Chloride Carbon Dioxide Anion Gap BUN Creatinine Est GFR (CKD-EPI) Glucose POC Glucose 117 150 POC Glucose Comment Calcium Total Bilirubin AST ALT Alkaline Phosphatase Total Protein Albumin Globulin Albumin/Globulin Ratio Assessment/Plan (1) Acute hypoxic respiratory failure: (2) COPD exacerbation: (3) Influenza A: (4) Hypotension: Qualifiers: Hypotension type: unspecified hypotension type Qualified Code(s): I95.9 - Hypotension, unspecified (5) HTN (hypertension): (6) Diabetes type 2: (7) Dyslipidemia: (8) Impaired mobility and activities of daily living: Plan This is a 69 y/o who presented to the hospital due to acute respiratory failure requiring intubation likely secondary COPD exacerbation due to influenza A with potential superimposed bacterial pneumonia. -From a functional standpoint, the patient does continue to have documented deficits that would hinder discharge home at this time -I agree that she would benefit from continued skilled therapy and nursing. I feel as though it was appropriate location for this patient on discharge should be a correction facility. She does not meet inpatient rehab criteria as she does not have an approved rehab diagnosis. In addition she was requiring up to 6 L of nasal cannula with activity. We require patients to be on 5L NC or less with activity on the inpatient rehab unit. -Thank you for the consult Patient was personally seen by me, Dr. Bazan, on the day of encounter, reviewed the history and the relevant portions of the chart, including current orders, allied health and senior billing consultant notes, labs/imaging and performed barrow elements of exam and I formulated the plan of care and facilitated the medical decision making. I completed a substantive portion of this encounter, the medical decision making portion of this note in its entirety, including Allied health note review, nursing note review, senior billing consultant note review, discussion with nursing and case management, and more than 50% of my time was spent on counseling and coordination of care, time spent 45 minutes Documented By: Dave Bazan MD 1861 Signed By: <Electronically signed by Dave Bazan MD> 12/13/[address] [facility] Work Phone: [phone]) 726-489701-30-[address] [address] Pulmonology Progress Note Signed Patient: Zuleyka Chaudhry MR#: [id number] : 1955 Acct:[id number] Age/Sex: 69 / F Adm Date: Loc: 4 Room: 2Y0404-5 Type: ADM IN Attending Dr: Daniel Garza MD Copies to: ~ Date of Service: 12/13/2024 Subjective Subjective Narrative: Feels better today and remains on nasal cannula. Still with intermittent cough with some clear sputum production. Exam Physical Exam Vital Signs: Temp Pulse Resp BP Pulse Ox O2 Del Method O2 Flow Rate 98.4 F 82 18 146/77 H 98 Nasal Cannula 5 12/13/24 11:13 12/13/24 11:59 12/13/24 11:59 12/13/24 11:13 12/13/24 11:13 12/13/24 11:13 12/13/24 11:13 FiO2 40 12/11/24 12:00 Narrative: General: Awake and alert, appears in minimal respiratory distress Neck: Supple. Pulmonary: Diminished breath sounds to both lung ernst without wheezing. Cardiovascular: Regular rate and rhythm. No murmurs Abdomen: Soft, nontender and nondistended. Extremities: No edema. Objective Intake and Output I&O - Last 24 Hours: Intake & Output 12/12/24 12/13/24 12/13/24 23:59 07:59 15:59 Intake Total 300 / 1160 340 / 1120 780 / 1120 Output Total 900 / 3550 1100 / 1100 Balance -600 / -2390 -760 / 20 780 / 20 Labs 12/13/24 04:47 12/13/24 04:47 Microbiology Micro: Microbiology 3 12/09/24 22:47 Blood Culture - Preliminary Blood - Left Hand No Growth 3 Days 12/09/24 21:43 Blood Culture - Preliminary Blood - Left Forearm No Growth 3 Days 12/09/24 21:45 Aerobic Culture - Final Sputum - Endotrachael Light Normal Respiratory Chase 2 Days Gram Stain - Final Assessment/Plan Assessment/Plan (1) Acute hypoxic respiratory failure: Plan: Likely secondary to underlying COPD with an acute exacerbation, likely triggeredby an acute influenza A infection. Evidence of bibasilar infiltrates on her chest x-ray as well with concern for superimposed bacterial pneumonia. Improving with current treatment and tolerating nasal cannula well. Will continue with current coverage with Zosyn for possible associated pneumonia. Continue with Tamiflu for 5 days. Continue systemic steroids and bronchodilator therapy. Cut down her systemic steroid dose. Documented By: Cecilia Ruiz MD 12/13/24 1351 Signed By: 12/13/24 1353 [facility]01-30-20[place] [address] Hospitalist Progress Note Signed Patient: Zuleyka Chaudhry MR#: [id number] : 1955 Acct:[id number] Age/Sex: 69 / F Adm Date: 5 Loc: Room: [address] [place] [address] Type: ADM IN Attending Dr: Daniel Garza MD Copies to: ~ Date of Service: 12/13/2024 Subjective Subjective Narrative: This is a 69 y.o female with past medical history of COPD, dyslipidemia, hypertension, type 2 diabetes as well as GERD and depression. Patient came to [facility] after she was intubated by the EMS, she was found unresponsive by her boyfriend who does not know how long she was down upon arrival thepatient was breathing but agonal and she was not responding and she did have a pulse. The family atthe bedside mentioned that the patient has been complaining of shortness of breath for the last 2 days no chest pain no nausea no vomiting and no other concerns as per [facility] documentation. Labs at [facility] showed CBC with leukocytosis and left shift, hemoglobin of 10.6. Platelet count was 225. Chemistry showed sodium of 128 with potassium of3.1 and chloride of 95 as well as BUN of 18 and creatinine of 0.98 and bicarb of25.8. Lactic acid was 1.8. Magnesium was 1.3. Liver function werenot impressive. Her blood glucose was 221 she did have a UA that showed no signs ofUTI. Her ABG wasdone at [facility] ER showed pH of 7.16 as well as PaCO2 of 71.5. She was intubated by EMS, was given 100 mg of succinylcholine 60 mg of ketamine and then 50 mg of fentanyl and 5 mg of Versed as well as 6.4 mg of Elconin. Also they reached out to cardiology at [facility] recommending again heparinization. EKG showed sinus tachycardia with RBBB. CXR showed calcified granuloma of the mediastinum. No acute consolidation. Stable emphysematous changes. Osseous structures appear intact. CT head withoutcontrast was negative for acute pathology. CTcervical spine without contrast was negative for acute fracture or dislocation. It did show multilevel degenerative changes of the cervical spine. Diffuse demineralization of bone. Patient was admitted in the ICU and was continued on mechanical ventilation and was started on bronchodilator steroid antibiotics and oseltamivir. Mold Shaker was consulted who recommended continuing the same. Duringthe stay her patient is slowly weaned off mechanical ventilation. Due to elevated troponin cardiology was consulted who recommended echocardiography. Transthoracic echocardiography showed normal ejection fraction of 65 to 73% withnormal wall motion. sputum culture-light normal respiratory chase. Blood culture-no growth 1 day. Interval history-patient is comfortably breathing in 4 to 5 L by nasal cannula. Denies any complaints. Will complete 5-day course of Zosyn tomorrow. Exam Physical Exam Vital Signs: Temp Pulse Resp BP Pulse Ox O2 Del Method O2 Flow Rate 98.4 F 82 18 146/77 H 98 Nasal Cannula 5 12/13/24 11:13 12/13/24 11:59 12/13/24 11:59 12/13/24 11:13 12/13/24 11:13 12/13/24 11:13 12/13/24 11:13 FiO2 40 12/11/24 12:00 Narrative: General: Mechanically ventilated but following commands HEENT: head atraumatic, normocephalic, moist mucous membranes Neck: supple no masses, no lymphadenopathy CVS: regular rate and rhythm, no murmurs or gallops Respiratory: diminished breath sound bilaterally but no wheezing or crackles heart GI: soft, nondistended, nontender, positive bowel sounds with no organomegaly Extremity: moves all extremities, no restrictions of movements, no calf tenderness Neuro: Moves all extremities in all planes of motion. Skin: intact no rashes or lesions Objective Lab Results 12/13/24 04:47 12/13/24 04:47 Microbiology Results Microbiology 12/09/24 22:47 Blood - Left Hand Blood Culture - Preliminary No Growth 3 Days 12/09/24 21:43 Blood - Left Forearm Blood Culture - Preliminary No Growth 3 Days 12/09/24 21:45 Sputum - Endotrachael Aerobic Culture - Final Light Normal Respiratory Chase 2 Days 12/09/24 21:45 Sputum - Endotrachael Gram Stain - Final Meds Allergies and Active Meds Allergies No Known Allergies Allergy (Verified 12/09/24 23:48) Active Meds: Active Medications Generic Name Dose Route Start Last Admin Trade Name Freq PRN Reason Stop Dose Admin Acetaminophen 650 mg 12/10/24 10:28 12/10/24 11:34 Acetaminophen 650 Mg/20.3 Ml Oral.Susp PO 12/10/25 10:27 650 mg Q6H PRN Administration Fever or Pain Albuterol/Ipratropium 3 ml 12/11/24 20:00 12/13/24 11:59 Ipratropium/Albuterol 0.5-3 Mg 3 Ml Ampul.Neb INHALATION 12/11/25 19:59 3 ml QID.RESP LARS Administration Dextrose 0 gm 12/09/24 22:47 Dextrose 50% In Water 25 Gm/50 Ml Syringe IV-PUSH 12/09/25 22:46 PRN PRN Hypoglycemia Glucose 0 gm 12/09/24 22:47 Dextrose 40% Gel 15 Gm Tube PO 12/09/25 22:46 PRN PRN Hypoglycemia Heparin Sodium (Porcine) 5,000 unit 12/10/24 06:00 12/13/24 13:11 Heparin 5,000 Unit/Ml Vial SUBCUT 12/10/25 05:59 5,000 unit Q8HR LARS Administration Piperacillin Sod/Tazobactam Sod 4.5 gm in 100 mls @ 25 mls/hr 12/10/24 17:30 12/13/24 09:58 Zosyn IV 12/14/24 16:24 25 mls/hr Q8H LARS Administration Insulin Aspart 0 units 12/12/24 22:00 12/13/24 11:38 Insulin Aspart 300 Units/3 Ml SUBCUT 12/12/25 21:59 Not Given ACHS COUNTS INCLUDE 234 BEDS AT THE [facility] Protocol Oseltamivir Phosphate 30 mg 12/13/24 21:00 Oseltamivir Phosphate 30 Mg Capsule PO 12/14/24 21:01 BID LARS Pantoprazole Sodium 40 mg 12/10/24 09:00 12/13/24 09:48 Pantoprazole 40 Mg Vial IV-PUSH 12/10/25 08:59 Not Given DAILY LARS Prednisone 40 mg 12/13/24 13:30 12/13/24 13:07 Prednisone 20 Mg Tablet PO 12/13/25 13:29 40 mg DAILY LARS Administration Sodium Chloride 10 ml 12/09/24 22:08 12/12/24 08:49 Sodium Chloride 0.9 % 10 Ml Vial.Pf INJECTION 12/09/25 22:07 10 ml PRN PRN Administration Dilution Sodium Chloride 10 ml 12/09/24 22:08 12/13/24 02:21 Sodium Chloride 0.9 % 10 Ml Syringe IV-PUSH 12/09/25 22:07 10 ml PRN PRN Administration Flush A&P - Hospitalist Assessment/Plan (1) Acute hypoxic respiratory failure: (2) COPD exacerbation: (3) Aspiration pneumonia: (4) HTN (hypertension): (5) Diabetes type 2: (6) Dyslipidemia: (7) Depression: (8) Tobacco abuse: (9) Influenza A: (10) Hypotension: (11) Elevated troponin: Plan Apneic and hypoxic respiratory failure in the setting of COPD exacerbation CO2 narcosis Tobacco abuse Hypotension could be from sedation but also need to rule out septic shock from superimposed bacterial pneumonia (given the viscid secretions from the ETT) Hyponatremia, appears to be due to dehydration (toast and beer) as the daughter told me that her mom always drinks pop and coffee no water. Elevated troponin likely type 2 OH -Continue on steroids, bronchodilator, oseltamivir and antibiotics -ICU consult-appreciate recommendation -As per her daughter, pt does not drink alcohol or use drugs, She is a very active smoker -HSQ for DVT prophylaxis -Pantoprazole IV 40 mg daily for GI prophylaxis -Full code -consulted cardio-believes elevated troponin likely in setting of type II OH. Follow-up echo showednormal ejection fraction of 65 to 70% with normal wall motion -PMR was consulted who recommended discharge to correction facility. Full code Documented By: Daniel Garza MD 12/13/24 1337 Signed By: 12/13/24 1341 [facility]01-30-2025 [place] [address] Physiatry (Rehab) Consult Note Signed Patient: Zuleyka Chaudhry MR#: [id number] : 1955 Acct:[id number] Age/Sex: 69 / F Adm Date: 5 Loc: 4P Room: [address] [place] [address] Type: ADM IN Attending Dr: Daniel Garza MD Copies to: MD Daniel Cruz NP-C Christian D Siebenaler, MD~ HPI Consult Date: 12/13/24 Requesting Physician: Daniel Garza MD Primary Care Provider: SILVER Francois Consult Narrative HPI: Ms. Chaudhry is a 69 year old female with PMH COPD, dyslipidemia, hypertension, type2 diabetes as well as GERD and depression. The patient was transferred [facility] from [facility] after being found unresponsive and being intubated by EMS. She hadreportedly been having worsening SOB a few days prior to presentation. She did initially require pressor support due to hypotension which has resolved. She tested positive for Influenza A and likely had a COPD exacerbation which led to her acute respiratory failure. She remains on Zosyn for concern for possible superimposed pneumonia. Thus far cultures have remained negative. The patient was able to be extubated on 12/11. She has remained on NC since. The patient lives with her boyfriend. She is IND at baseline. She has participated in OOB therapy. Min A for ambulation 2'. I met with the patient today. She is resting in her recliner next to her bed. Appears in no distress currently. She does admit to some SOB today but is breathing comfortably on NC. She denies chest pain, fever, chills. She reports that she continues to have a productive cough. Review of Systems Review of Systems All other systems reviewed & are negative unless noted below or in HPI [facility] Medical History Depressed Acute hypoxic respiratory failure Depression Dyslipidemia Diabetes type 2 HTN (hypertension) COPD exacerbation Social History Smoking Status: Unknown if ever smoked Meds Medications and Allergies Allergies No Known Allergies Allergy (Verified 12/09/24 23:48) Home Medications albuterol sulfate 90 mcg/actuation aerosol inhaler inhalation 12/10/24 [History] atorvastatin 40 mg tablet mg 12/10/24 [History] fluticasone fur. 200 mcg-umeclid 62.5 mcg-vilant 25 mcg inhalat.powder (Trelegy Ellipta) /27/25 [History] losartan 50 mg tablet mg 12/10/24 [History] meloxicam 7.5 mg tablet mg 12/10/24 [History] metformin 500 mg tablet mg 12/10/24 [History] omeprazole 20 mg capsule,delayed release mg 12/10/24 [History] sertraline 50 mg tablet mg 12/10/24 [History] Exam Physical Exam Vital Signs: Temp Pulse Resp BP Pulse Ox O2 Del Method O2 Flow Rate 98.4 F 82 18 146/77 H 98 Nasal Cannula 5 12/13/24 11:13 12/13/24 11:59 12/13/24 11:59 12/13/24 11:13 12/13/24 11:13 12/13/24 11:13 12/13/24 11:13 FiO2 40 12/11/24 12:00 Narrative: Gen: Awake, oriented, cooperative. HEENT: Atraumatic, PERRL, EOMI Resp: No respiratory distress Cardio: Extremities well perfused MSK: Moves all extremities spontaneously Neuro: CN grossly intact Skin: No swelling, erythema, ecchymosis appreciated Psych: Mood and affect normal Results - Phys. Rehab Labs Labs: Laboratory Results - last 24 hr 12/12/24 12/12/24 12/13/24 17:49 21:07 04:47 Corrected WBC 10.6 Uncorrected WBC Count 10.6 RBC 4.68 Hgb 13.4 Hct 40.5 MCV 86.4 MCH 28.5 MCHC 33.0 RDW 15.4 H Plt Count 302 MPV 7.3 Neut % (Auto) 87.0 Lymph % (Auto) 6.4 Mckinley % (Auto) 6.5 Eos % (Auto) 0.0 Baso % (Auto) 0.1 Nucleat RBC Rel Count 0.1 Neut # (Auto) 9.3 H Lymph # (Auto) 0.7 L Mckinley # (Auto) 0.7 Eos # (Auto) 0.0 Baso # (Auto) 0.0 PHA Creatinine Clear 54.42 Sodium 136 Potassium 4.1 Chloride 95 L Carbon Dioxide 30.8 Anion Gap 14.3 BUN 22 Creatinine 0.99 Est GFR (CKD-EPI) > 60.0 Glucose 97 POC Glucose 107 114 POC Glucose Comment Glu2: cleaned meter Calcium 8.9 Total Bilirubin 0.5 AST 38 ALT 65 H Alkaline Phosphatase 84 Total Protein 6.9 Albumin 3.8 Globulin 3.1 Albumin/Globulin Ratio 1.2 12/13/24 12/13/24 07:33 11:21 Corrected WBC Uncorrected WBC Count RBC Hgb Hct MCV MCH MCHC RDW Plt Count MPV Neut % (Auto) Lymph % (Auto) Mckinley % (Auto) Eos % (Auto) Baso % (Auto) Nucleat RBC Rel Count Neut # (Auto) Lymph # (Auto) Mckinley # (Auto) Eos # (Auto) Baso # (Auto) PHA Creatinine Clear Sodium Potassium Chloride Carbon Dioxide Anion Gap BUN Creatinine Est GFR (CKD-EPI) Glucose POC Glucose 117 150 POC Glucose Comment Calcium Total Bilirubin AST ALT Alkaline Phosphatase Total Protein Albumin Globulin Albumin/Globulin Ratio Assessment/Plan (1) Acute hypoxic respiratory failure: (2) COPD exacerbation: (3) Influenza A: (4) Hypotension: Qualifiers: Hypotension type: unspecified hypotension type Qualified Code(s): I95.9 - Hypotension, unspecified (5) HTN (hypertension): (6) Diabetes type 2: (7) Dyslipidemia: (8) Impaired mobility and activities of daily living: Plan This is a 69 y/o who presented to the hospital due to acute respiratory failure requiring intubation likely secondary COPD exacerbation due to influenza A with potential superimposed bacterial pneumonia. -From a functional standpoint, the patient does continue to have documented deficits that would hinder discharge home at this time -I agree that she would benefit from continued skilled therapy and nursing. I feel as though it wasappropriate location for this patient on discharge should be a correction facility. She does not meet inpatient rehab criteria as she does not have an approved rehab diagnosis. In addition she was requiring up to 6 L of nasal cannula with activity. We require patients to be on 5L NC or less with activity on the inpatient rehab unit. -Thank you for the consult Patient was personally seen by me, Dr. Bazan, on the day of encounter, reviewed the history and the relevant portions of the chart, including current orders, allied health and senior billing consultant notes, labs/imaging and performed barrow elements of exam and I formulated the plan of care and facilitated the medical decision making. I completed a substantive portion of this encounter, the medical decision making portion of this note in its entirety, including Allied health note review, nursing note review, senior billing consultant note review, discussion with nursing and case management, and more than 50% of my time was spent on counseling and coordination of care, time spent 45 minutes Documented By: Dave Bazan MD [id number] Signed By: 12/13/24 1329 [facility]01-29-2025 Progress note Author Daniel Garza [facility] Note Date/Time December 12, 2024 2 :45pm [facility] [address] [place] [address] Hospitalist Progress Note Signed Patient: Zuleyka Chaudhry MR#: [id number] : 1955 Acct:[id number] Age/Sex: 69 / F Adm Date: 5 Loc: Room: [address] [place] [address] Type: ADM IN Attending Dr: Daniel Garza MD Copies to: ~ Date of Service: 12/12/2024 Subjective Subjective Narrative: This is a 69 y.o female with past medical history of COPD, dyslipidemia, hypertension, type 2 diabetes as well as GERD and depression. Patient came to [facility] after she was intubated by the EMS, she was found unresponsive by her boyfriend who does not know how long she was down upon arrival the patient was breathing but agonal and she was not responding and she did have a pulse. The family at the bedside mentioned that the patient has been complaining of shortness of breath for the last 2 days no chest pain no nausea no vomiting and no other concerns as per [facility] documentation. Labs at [facility] showed CBC with leukocytosis and left shift, hemoglobin of 10.6. Platelet count was 225. Chemistry showed sodium of 128 with potassium of3.1 and chloride of 95 as well as BUN of 18 and creatinine of 0.98 and bicarb of25.8. Lactic acid was 1.8. Magnesium was 1.3. Liver function were not impressive. Her blood glucose was 221 she did have a UA that showed no signs ofUTI. Her ABG was done at [facility] ER showed pH of 7.16 as well as PaCO2 of 71.5. She was intubated by EMS, was given 100 mg of succinylcholine 60 mg of ketamine and then 50 mg of fentanyl and 5 mg of Versed as well as 6.4 mg of Elconin. Also they reached out to cardiology at [facility] recommending again heparinization. EKG showed sinus tachycardia with RBBB. CXR showed calcified granuloma of the mediastinum. No acute consolidation. Stable emphysematous changes. Osseous structures appear intact. CT head withoutcontrast was negative for acute pathology. CT cervical spine without contrast was negative for acute fracture or dislocation. It did show multilevel degenerative changes of the cervical spine. Diffuse demineralization of bone. Patient was admitted in the ICU and was continued on mechanical ventilation and was started on bronchodilator steroid antibiotics and oseltamivir. Mold Shaker was consulted who recommended continuing the same. During the stay her patient is slowly weaned off mechanical ventilation. Due to elevated troponin cardiology was consulted who recommended echocardiography. Transthoracic echocardiography showed normal ejection fraction of 65 to 73% withnormal wall motion. sputum culture-light normal respiratory chase. Blood culture-no growth 1 day. Interval history-patient is not on any vasopressors. And is comfortably breathing on 2 to 3 L nasal cannula and is following commands. Denies any complaints. WBC is down to 11.6. Phosphorus was 2 and was replaced. Exam Physical Exam Vital Signs: Temp Pulse Resp BP Pulse Ox O2 Del Method O2 Flow Rate 98.1 F 85 28 H 118/62 95 Nasal Cannula 4 12/12/24 12:00 12/12/24 13:00 12/12/24 13:00 12/12/24 13:00 12/12/24 13:00 12/12/24 13:00 12/12/24 13:00 FiO2 40 12/11/24 12:00 Narrative: General: Mechanically ventilated but following commands HEENT: head atraumatic, normocephalic, moist mucous membranes Neck: supple no masses, no lymphadenopathy CVS: regular rate and rhythm, no murmurs or gallops Respiratory: diminished breath sound bilaterally but no wheezing or crackles heart GI: soft, nondistended, nontender, positive bowel sounds with no organomegaly Extremity: moves all extremities, no restrictions of movements, no calf tenderness Neuro: Moves all extremities in all planes of motion. Skin: intact no rashes or lesions Objective Lab Results 12/12/24 03:47 12/12/24 03:47 Microbiology Results Microbiology 12/09/24 21:45 Sputum - Endotrachael Aerobic Culture - Final Light Normal Respiratory Chase 2 Days 12/09/24 21:45 Sputum - Endotrachael Gram Stain - Final 12/09/24 22:47 Blood - Left Hand Blood Culture - Preliminary No Growth 2 Days 12/09/24 21:43 Blood - Left Forearm Blood Culture - Preliminary No Growth 2 Days Meds Allergies and Active Meds Allergies No Known Allergies Allergy (Verified 12/09/24 23:48) Active Meds: Active Medications Generic Name Dose Route Start Last Admin Trade Name Freq PRN Reason Stop Dose Admin Acetaminophen 650 mg 12/10/24 10:28 12/10/24 11:34 Acetaminophen 650 Mg/20.3 Ml Oral.Susp PO 12/10/25 10:27 650 mg Q6H PRN Administration Fever or Pain Albuterol/Ipratropium 3 ml 12/11/24 20:00 12/12/24 10:57 Ipratropium/Albuterol 0.5-3 Mg 3 Ml Ampul.Neb INHALATION 12/11/25 19:59 3 ml QID.RESP LARS Administration Dextrose 0 gm 12/09/24 22:47 Dextrose 50% In Water 25 Gm/50 Ml Syringe IV-PUSH 12/09/25 22:46 PRN PRN Hypoglycemia Glucose 0 gm 12/09/24 22:47 Dextrose 40% Gel 15 Gm Tube PO 12/09/25 22:46 PRN PRN Hypoglycemia Heparin Sodium (Porcine) 5,000 unit 12/10/24 06:00 12/12/24 05:18 Heparin 5,000 Unit/Ml Vial SUBCUT 12/10/25 05:59 5,000 unit Q8HR LARS Administration Piperacillin Sod/Tazobactam Sod 4.5 gm in 100 mls @ 25 mls/hr 12/10/24 17:30 12/12/24 08:49 Zosyn IV 12/14/24 16:24 25 mls/hr Q8H LARS Administration Insulin Aspart 0 units 12/10/24 12:00 12/12/24 12:34 Insulin Aspart 300 Units/3 Ml SUBCUT 12/10/25 11:59 3 units Q6HR LARS Administration Protocol Oseltamivir Phosphate 75 mg 12/12/24 21:00 Oseltamivir Phosphate 75 Mg Capsule PO 12/14/24 21:01 BID LARS Pantoprazole Sodium 40 mg 12/10/24 09:00 12/12/24 08:49 Pantoprazole 40 Mg Vial IV-PUSH 12/10/25 08:59 40 mg DAILY LARS Administration Prednisone 40 mg 12/13/24 13:30 Prednisone 20 Mg Tablet PO 12/13/25 13:29 DAILY LARS Sodium Chloride 10 ml 12/09/24 22:08 12/12/24 08:49 Sodium Chloride 0.9 % 10 Ml Vial.Pf INJECTION 12/09/25 22:07 10 ml PRN PRN Administration Dilution Sodium Chloride 10 ml 12/09/24 22:08 12/12/24 08:50 Sodium Chloride 0.9 % 10 Ml Syringe IV-PUSH 12/09/25 22:07 10 ml PRN PRN Administration Flush A&P - Hospitalist Assessment/Plan (1) Acute hypoxic respiratory failure: (2) COPD exacerbation: (3) Aspiration pneumonia: (4) HTN (hypertension): (5) Diabetes type 2: (6) Dyslipidemia: (7) Depression: (8) Tobacco abuse: (9) Influenza A: (10) Hypotension: (11) Elevated troponin: Plan Apneic and hypoxic respiratory failure in the setting of COPD exacerbation CO2 narcosis Tobacco abuse Hypotension could be from sedation but also need to rule out septic shock from superimposed bacterial pneumonia (given the viscid secretions from the ETT) Hyponatremia, appears to be due to dehydration (toast and beer) as the daughter told me that her mom always drinks pop and coffee no water. Elevated troponin likely type 2 OH -Okay to be transferred out of ICU. -Continue on steroids, bronchodilator, oseltamivir and antibiotics -ICU consult-appreciate recommendation -As per her daughter, pt does not drink alcohol or use drugs, She is a very active smoker -HSQ for DVT prophylaxis -Pantoprazole IV 40 mg daily for GI prophylaxis -Full code -consulted cardio Documented By: Daniel Garza MD 12/12/24 144 Signed By: <Electronically signed by Daniel Garza MD> 12/12/24 1441 [facility] Work Phone: [phone] 462-394501-29-2025 [place] [id number] Hospitalist Progress Note Signed Patient: Zuleyka Chaudhry MR#: [id number] : 1955 Acct:[id number] Age/Sex: 69 / F Adm Date: 5 Loc: Room: 9Q5668-2 Type: ADM IN Attending Dr: Daniel Garza MD Copies to: ~ Date of Service: 12/12/2024 Subjective Subjective Narrative: This is a 69 y.o female with past medical history of COPD, dyslipidemia, hypertension, type 2 diabetes as well as GERD and depression. Patient came to [facility] after she was intubated by the EMS, she was found unresponsive by her boyfriend who does not know how long she was down upon arrival thepatient was breathing but agonal and she was not responding and she did have a pulse. The family atthe bedside mentioned that the patient has been complaining of shortness of breath for the last 2 days no chest pain no nausea no vomiting and no other concerns as per [facility] documentation. Labs at [facility] showed CBC with leukocytosis and left shift, hemoglobin of 10.6. Platelet count was 225. Chemistry showed sodium of 128 with potassium of3.1 and chloride of 95 as well as BUN of 18 and creatinine of 0.98 and bicarb of25.8. Lactic acid was 1.8. Magnesium was 1.3. Liver function werenot impressive. Her blood glucose was 221 she did have a UA that showed no signs ofUTI. Her ABG wasdone at [facility] ER showed pH of 7.16 as well as PaCO2 of 71.5. She was intubated by EMS, was given 100 mg of succinylcholine 60 mg of ketamine and then 50 mg of fentanyl and 5 mg of Versed as well as 6.4 mg of Elconin. Also they reached out to cardiology at [facility] recommending again heparinization. EKG showed sinus tachycardia with RBBB. CXR showed calcified granuloma of the mediastinum. No acute consolidation. Stable emphysematous changes. Osseous structures appear intact. CT head withoutcontrast was negative for acute pathology. CTcervical spine without contrast was negative for acute fracture or dislocation. It did show multilevel degenerative changes of the cervical spine. Diffuse demineralization of bone. Patient was admitted in the ICU and was continued on mechanical ventilation and was started on bronchodilator steroid antibiotics and oseltamivir. Mold Shaker was consulted who recommended continuing the same. Duringthe stay her patient is slowly weaned off mechanical ventilation. Due to elevated troponin cardiology was consulted who recommended echocardiography. Transthoracic echocardiography showed normal ejection fraction of 65 to 73% withnormal wall motion. sputum culture-light normal respiratory chase. Blood culture-no growth 1 day. Interval history-patient is not on any vasopressors. And is comfortably breathing on 2 to 3 L nasalcannula and is following commands. Denies any complaints. WBC is down to 11.6. Phosphorus was 2 andwas replaced. Exam Physical Exam Vital Signs: Temp Pulse Resp BP Pulse Ox O2 Del Method O2 Flow Rate 98.1 F 85 28 H 118/62 95 Nasal Cannula 4 12/12/24 12:00 12/12/24 13:00 12/12/24 13:00 12/12/24 13:00 12/12/24 13:00 12/12/24 13:00 12/12/24 13:00 FiO2 40 12/11/24 12:00 Narrative: General: Mechanically ventilated but following commands HEENT: head atraumatic, normocephalic, moist mucous membranes Neck: supple no masses, no lymphadenopathy CVS: regular rate and rhythm, no murmurs or gallops Respiratory: diminished breath sound bilaterally but no wheezing or crackles heart GI: soft, nondistended, nontender, positive bowel sounds with no organomegaly Extremity: moves all extremities, no restrictions of movements, no calf tenderness Neuro: Moves all extremities in all planes of motion. Skin: intact no rashes or lesions Objective Lab Results 12/12/24 03:47 12/12/24 03:47 Microbiology Results Microbiology 12/09/24 21:45 Sputum - Endotrachael Aerobic Culture - Final Light Normal Respiratory Chase 2 Days 12/09/24 21:45 Sputum - Endotrachael Gram Stain - Final 12/09/24 22:47 Blood - Left Hand Blood Culture - Preliminary No Growth 2 Days 12/09/24 21:43 Blood - Left Forearm Blood Culture - Preliminary No Growth 2 Days Meds Allergies and Active Meds Allergies No Known Allergies Allergy (Verified 12/09/24 23:48) Active Meds: Active Medications Generic Name Dose Route Start Last Admin Trade Name Freq PRN Reason Stop Dose Admin Acetaminophen 650 mg 12/10/24 10:28 12/10/24 11:34 Acetaminophen 650 Mg/20.3 Ml Oral.Susp PO 12/10/25 10:27 650 mg Q6H PRN Administration Fever or Pain Albuterol/Ipratropium 3 ml 12/11/24 20:00 12/12/24 10:57 Ipratropium/Albuterol 0.5-3 Mg 3 Ml Ampul.Neb INHALATION 12/11/25 19:59 3 ml QID.RESP LARS Administration Dextrose 0 gm 12/09/24 22:47 Dextrose 50% In Water 25 Gm/50 Ml Syringe IV-PUSH 12/09/25 22:46 PRN PRN Hypoglycemia Glucose 0 gm 12/09/24 22:47 Dextrose 40% Gel 15 Gm Tube PO 12/09/25 22:46 PRN PRN Hypoglycemia Heparin Sodium (Porcine) 5,000 unit 12/10/24 06:00 12/12/24 05:18 Heparin 5,000 Unit/Ml Vial SUBCUT 12/10/25 05:59 5,000 unit Q8HR LARS Administration Piperacillin Sod/Tazobactam Sod 4.5 gm in 100 mls @ 25 mls/hr 12/10/24 17:30 12/12/24 08:49 Zosyn IV 12/14/24 16:24 25 mls/hr Q8H LARS Administration Insulin Aspart 0 units 12/10/24 12:00 12/12/24 12:34 Insulin Aspart 300 Units/3 Ml SUBCUT 12/10/25 11:59 3 units Q6HR LARS Administration Protocol Oseltamivir Phosphate 75 mg 12/12/24 21:00 Oseltamivir Phosphate 75 Mg Capsule PO 12/14/24 21:01 BID LARS Pantoprazole Sodium 40 mg 12/10/24 09:00 12/12/24 08:49 Pantoprazole 40 Mg Vial IV-PUSH 12/10/25 08:59 40 mg DAILY LARS Administration Prednisone 40 mg 12/13/24 13:30 Prednisone 20 Mg Tablet PO 12/13/25 13:29 DAILY LARS Sodium Chloride 10 ml 12/09/24 22:08 12/12/24 08:49 Sodium Chloride 0.9 % 10 Ml Vial.Pf INJECTION 12/09/25 22:07 10 ml PRN PRN Administration Dilution Sodium Chloride 10 ml 12/09/24 22:08 12/12/24 08:50 Sodium Chloride 0.9 % 10 Ml Syringe IV-PUSH 12/09/25 22:07 10 ml PRN PRN Administration Flush A&P - Hospitalist Assessment/Plan (1) Acute hypoxic respiratory failure: (2) COPD exacerbation: (3) Aspiration pneumonia: (4) HTN (hypertension): (5) Diabetes type 2: (6) Dyslipidemia: (7) Depression: (8) Tobacco abuse: (9) Influenza A: (10) Hypotension: (11) Elevated troponin: Plan Apneic and hypoxic respiratory failure in the setting of COPD exacerbation CO2 narcosis Tobacco abuse Hypotension could be from sedation but also need to rule out septic shock from superimposed bacterial pneumonia (given the viscid secretions from the ETT) Hyponatremia, appears to be due to dehydration (toast and beer) as the daughter told me that her mom always drinks pop and coffee no water. Elevated troponin likely type 2 OH -Okay to be transferred out of ICU. -Continue on steroids, bronchodilator, oseltamivir and antibiotics -ICU consult-appreciate recommendation -As per her daughter, pt does not drink alcohol or use drugs, She is a very active smoker -HSQ for DVT prophylaxis -Pantoprazole IV 40 mg daily for GI prophylaxis -Full code -consulted cardio Documented By: Daniel Garza MD 12/12/241442 Signed By: 12/12/24 [facility]5 [facility]01-29-2025 Progress note Author Cecilia Ruiz [facility] Note Date/Time December 12, 2024 1 1:35am [facility] [address] [place] [address] Pulmonology Progress Note Signed Patient: Zuleyka Chaudhry MR#: [id number] : 1955 Acct:[id number] Age/Sex: 69 / F Adm Date: 5 Loc: Room: [address] [place] [address] Type: ADM IN Attending Dr: Daniel Garza MD Copies to: ~ Date of Service: 12/12/2024 Subjective Subjective Narrative: Feels better today and tolerated extubation well, currently on nasal cannula. Still with intermittent cough with some clear sputum production. Exam Physical Exam Vital Signs: Temp Pulse Resp BP Pulse Ox O2 Del Method O2 Flow Rate 98.0 F 75 19 153/81 H 97 Nasal Cannula 4 12/12/24 04:00 12/12/24 07:00 12/12/24 07:00 12/12/24 07:00 12/12/24 07:00 12/12/24 08:22 12/12/24 08:22 FiO2 40 12/11/24 12:00 Narrative: General: Awake and alert, appears in minimal respiratory distress Neck: Supple. Pulmonary: Diminished breath sounds to both lung ernst without wheezing. Cardiovascular: Regular rate and rhythm. No murmurs Abdomen: Soft, nontender and nondistended. Extremities: No edema. Objective Intake and Output I&O - Last 24 Hours: Intake & Output 12/11/24 12/12/24 12/12/24 23:59 07:59 15:59 Intake Total 160 / 420 160 / 160 Output Total 475 / 1325 1650 / 1650 Balance -315 / -905 -1490 / -1490 Weight 83.3 kg Labs 12/12/24 03:47 12/12/24 03:47 Microbiology Micro: Microbiology 3 12/09/24 21:45 Aerobic Culture - Final Sputum - Endotrachael Light Normal Respiratory Chase 2 Days Gram Stain - Final 12/09/24 22:47 Blood Culture - Preliminary Blood - Left Hand No Growth 2 Days 12/09/24 21:43 Blood Culture - Preliminary Blood - Left Forearm No Growth 2 Days Assessment/Plan Assessment/Plan (1) Acute hypoxic respiratory failure: Plan: Likely secondary to underlying COPD with an acute exacerbation, likely triggeredby an acute influenza A infection. Evidence of bibasilar infiltrates on her chest x-ray as well with concern for superimposed bacterial pneumonia. Improving with current treatment and tolerated extubation relatively well and remains on nasal cannula. Will continue with current coverage with Zosyn for possible associated pneumonia. Continue with Tamiflu for 5 days. Continue systemic steroids and bronchodilator therapy. Cut down her systemic steroid dose. (2) Hypotension: Plan: Likely multifactorial with possible sepsis, dehydration and medication induced. Improved and now off pressors. Doubt the significance of her positive troponinsand likely due to demand ischemia. Plan Plan of care was discussed with the family at bedside. Okay to regular medical floor today Documented By: Cecilia Ruiz MD 12/12/24 1133 Signed By: <Electronically signed by Cecilia Ruiz MD> 12/12/[address] [facility] Work Phone: 1([phone]) 125-764501-29-2025 [place] [address] Pulmonology Progress Note Signed Patient: Zuleyka Chaudhry MR#: [id number] : 1955 Acct:[id number] Age/Sex: 69 / F Adm Date: 5 Loc: Room: [address] [place] [address] Type: ADM IN Attending Dr: Daniel Garza MD Copies to: ~ Date of Service: 12/12/2024 Subjective Subjective Narrative: Feels better today and tolerated extubation well, currently on nasal cannula. Still with intermittent cough with some clear sputum production. Exam Physical Exam Vital Signs: Temp Pulse Resp BP Pulse Ox O2 Del Method O2 Flow Rate 98.0 F 75 19 153/81 H 97 Nasal Cannula 4 12/12/24 04:00 12/12/24 07:00 12/12/24 07:00 12/12/24 07:00 12/12/24 07:00 12/12/24 08:22 12/12/24 08:22 FiO2 40 12/11/24 12:00 Narrative: General: Awake and alert, appears in minimal respiratory distress Neck: Supple. Pulmonary: Diminished breath sounds to both lung ernst without wheezing. Cardiovascular: Regular rate and rhythm. No murmurs Abdomen: Soft, nontender and nondistended. Extremities: No edema. Objective Intake and Output I&O - Last 24 Hours: Intake & Output 12/11/24 12/12/24 12/12/24 23:59 07:59 15:59 Intake Total 160 / 420 160 / 160 Output Total 475 / 1325 1650 / 1650 Balance -315 / -905 -1490 / -1490 Weight 83.3 kg Labs 12/12/24 03:47 12/12/24 03:47 Microbiology Micro: Microbiology 3 12/09/24 21:45 Aerobic Culture - Final Sputum - Endotrachael Light Normal Respiratory Chase 2 Days Gram Stain - Final 12/09/24 22:47 Blood Culture - Preliminary Blood - Left Hand No Growth 2 Days 12/09/24 21:43 Blood Culture - Preliminary Blood - Left Forearm No Growth 2 Days Assessment/Plan Assessment/Plan (1) Acute hypoxic respiratory failure: Plan: Likely secondary to underlying COPD with an acute exacerbation, likely triggeredby an acute influenza A infection. Evidence of bibasilar infiltrates on her chest x-ray as well with concern for superimposed bacterial pneumonia. Improving with current treatment and tolerated extubation relatively well and remains on nasal cannula. Will continue with current coverage with Zosyn for possible associated pneumonia. Continue with Tamiflu for 5 days. Continue systemic steroids and bronchodilator therapy. Cut down her systemic steroid dose. (2) Hypotension: Plan: Likely multifactorial with possible sepsis, dehydration and medication induced. Improved and now off pressors. Doubt the significance of her positive troponinsand likely due to demand ischemia. Plan Plan of care was discussed with the family at bedside. Okay to regular medical floor today Documented By: Cecilia Ruiz MD 12/12/241132 Signed By: 12/12/24 113 [facility]01-28-2025 Progress note Author Cecilia Ruiz [facility] Note Date/Time December 11, 2024 2 :49pm [facility] [address] [place] [address] Pulmonology Progress Note Signed Patient: Zuleyka Chaudhry MR#: [id number] : 1955 Acct:[id number] Age/Sex: 69 / F Adm Date: 5 Loc: Room: [address] [place] [address] Type: ADM IN Attending Dr: Daniel Garza MD Copies to: ~ Date of Service: 12/11/2024 Subjective Subjective Narrative: More awake and alert after decreasing sedation. Moderate ET tube secretions pernursing staff. Improved oxygen saturation on current ventilator setting. Hemodynamics are okay. Exam Physical Exam Vital Signs: Temp Pulse Resp BP Pulse Ox O2 Del Method O2 Flow Rate 97.8 F 79 24 133/69 99 Nasal Cannula 4 12/11/24 08:00 12/11/24 11:00 12/11/24 11:00 12/11/24 11:00 12/11/24 11:00 12/11/24 12:09 12/11/24 12:09 FiO2 40 12/11/24 12:00 Narrative: General: Sedated but easily arouses, appears in mild respiratory distress Neck: Supple. Pulmonary: Diminished breath sounds to both lung ernst without wheezing. Cardiovascular: Regular rate and rhythm. No murmurs Abdomen: Soft, nontender and nondistended. Extremities: No edema. Objective Intake and Output I&O - Last 24 Hours: Intake & Output 12/10/24 12/11/24 12/11/24 23:59 07:59 15:59 Intake Total 360 / 570 160 / 160 Output Total 475 / 2725 350 / 350 Balance -115 / -2155 -190 / -190 Weight 84.6 kg Labs 12/11/24 04:14 12/11/24 04:14 Microbiology Micro: Microbiology 3 12/09/24 21:45 Aerobic Culture - Preliminary Sputum - Endotrachael Light Normal Respiratory Chase 1 Day Gram Stain - Final 12/09/24 22:47 Blood Culture - Preliminary Blood - Left Hand No Growth 1 Day 12/09/24 21:43 Blood Culture - Preliminary Blood - Left Forearm No Growth 1 Day Assessment/Plan Assessment/Plan (1) Acute hypoxic respiratory failure: Plan: Likely secondary to underlying COPD with an acute exacerbation, likely triggeredby an acute influenza A infection. Evidence of bibasilar infiltrates on her chest x-ray as well with concern for superimposed bacterial pneumonia. Improving with current treatment and I was able to wean down her FiO2 to 40% today. Subsequently I placed her on CPAP trial 5 over 540% and she tolerated well. Nowextubated and placed on nasal cannula. Will continue with current coverage with Zosyn given her positive blood culturesfor MSSA. Continue with Tamiflu for 5 days. Continue systemic steroids and bronchodilator therapy. (2) Hypotension: Plan: Likely multifactorial with possible sepsis, dehydration and medication induced. Improved and now off pressors. Doubt the significance of her positive troponinsand likely due to demand ischemia. Plan Plan of care was discussed with the family at bedside. Critical care time was 32 minutes. Documented By: Cecilia Ruiz MD 12/11/241445 Signed By: <Electronically signed by Cecilia Ruiz MD> 12/11/24 1448 [facility] Work Phone: 1(637) 563-359601-28-2025 Progress note Author Daniel Garza [facility] Note Date/Time December 11, 2024 2 :43pm [facility] [address] [place] [address] Hospitalist Progress Note Signed Patient: Zuleyka Chaudhry MR#: [id number] : 1955 Acct:[id number] Age/Sex: 69 / F Adm Date: 5 Loc: Room: [address] [place] [address] Type: ADM IN Attending Dr: Daniel Garza MD Copies to: ~ Date of Service: 12/11/2024 Subjective Subjective Narrative: This is a 69 y.o female with past medical history of COPD, dyslipidemia, hypertension, type 2 diabetes as well as GERD and depression. Patient came to [facility] after she was intubated by the EMS, she was found unresponsive by her boyfriend who does not know how long she was down upon arrival the patient was breathing but agonal and she was not responding and she did have a pulse. The family at the bedside mentioned that the patient has been complaining of shortness of breath for the last 2 days no chest pain no nausea no vomiting and no other concerns as per [facility] documentation. Labs at [facility] showed CBC with leukocytosis and left shift, hemoglobin of 10.6. Platelet count was 225. Chemistry showed sodium of 128 with potassium of3.1 and chloride of 95 as well as BUN of 18 and creatinine of 0.98 and bicarb of25.8. Lactic acid was 1.8. Magnesium was 1.3. Liver function were not impressive. Her blood glucose was 221 she did have a UA that showed no signs ofUTI. Her ABG was done at [facility] showed pH of 7.16 as well as PaCO2 of 71.5. She was intubated by EMS, was given 100 mg of succinylcholine 60 mg of ketamine and then 50 mg of fentanyl and 5 mg of Versed as well as 6.4 mg of Elconin. Also they reached out to cardiology at [facility] recommending again heparinization. EKG showed sinus tachycardia with RBBB. CXR showed calcified granuloma of the mediastinum. No acute consolidation. Stable emphysematous changes. Osseous structures appear intact. CT head withoutcontrast was negative for acute pathology. CT cervical spine without contrast was negative for acute fracture or dislocation. It did show multilevel degenerative changes of the cervical spine. Diffuse demineralization of bone. Patient was admitted in the ICU and was continued on mechanical ventilation and was started on bronchodilator steroid antibiotics and oseltamivir. Mold Shaker was consulted who recommended continuing the same. During the stay her patient is slowly weaned off mechanical ventilation. Due to elevated troponin cardiology was consulted who recommended echocardiography. Transthoracic echocardiography showed normal ejection fraction of 65 to 73% withnormal wall motion. sputum culture-light normal respiratory chase. Blood culture-no growth 1 day. Interval history-patient is not on any vasopressors. Mechanically ventilated with 5 of PEEP and 55% FiO2. Patient is following commands. Exam Physical Exam Vital Signs: Temp Pulse Resp BP Pulse Ox O2 Del Method O2 Flow Rate 97.8 F 79 24 133/69 99 Nasal Cannula 4 12/11/24 08:00 12/11/24 11:00 12/11/24 11:00 12/11/24 11:00 12/11/24 11:00 12/11/24 12:09 12/11/24 12:09 FiO2 40 12/11/24 12:00 Narrative: General: Mechanically ventilated but following commands HEENT: head atraumatic, normocephalic, moist mucous membranes Neck: supple no masses, no lymphadenopathy CVS: regular rate and rhythm, no murmurs or gallops Respiratory: diminished breath sound bilaterally but no wheezing or crackles heart GI: soft, nondistended, nontender, positive bowel sounds with no organomegaly Extremity: moves all extremities, no restrictions of movements, no calf tenderness Neuro: Moves all extremities in all planes of motion. Skin: intact no rashes or lesions Objective Lab Results 12/11/24 04:14 12/11/24 04:14 Microbiology Results Microbiology 12/09/24 21:45 Sputum - Endotrachael Aerobic Culture - Preliminary Light Normal Respiratory Chase 1 Day 12/09/24 21:45 Sputum - Endotrachael Gram Stain - Final 12/09/24 22:47 Blood - Left Hand Blood Culture - Preliminary No Growth 1 Day 12/09/24 21:43 Blood - Left Forearm Blood Culture - Preliminary No Growth 1 Day ABG Interpretation ABG results: 12/11/24 04:22 ABG pH 7.36 ABG pCO2 40.3 ABG pO2 126.0 H* ABG HCO3 22.2 L ABG Total CO2 23.4 ABG O2 Saturation 98.1 ABG O2 Content 6.9 ABG Base Excess -3.0 Meds Allergies and Active Meds Allergies No Known Allergies Allergy (Verified 12/09/24 23:48) Active Meds: Active Medications Generic Name Dose Route Start Last Admin Trade Name Freq PRN Reason Stop Dose Admin Acetaminophen 650 mg 12/10/24 10:28 12/10/24 11:34 Acetaminophen 650 Mg/20.3 Ml Oral.Susp PO 12/10/25 10:27 650 mg Q6H PRN Administration Fever or Pain Albuterol 6 puff 12/10/24 00:00 12/11/24 12:08 Albuterol Hfa 200 Puff/18 Gm Inhaler VENT 12/10/25 00:00 Not Given Q6HR LARS Chlorhexidine Gluconate 15 ml 12/10/24 09:00 12/11/24 08:28 Chlorhexidine Gluconate 0.12% 15 Ml Udc MUCOUS MEM 12/10/25 08:59 15 ml BID LARS Administration Dextrose 0 gm 12/09/24 22:47 Dextrose 50% In Water 25 Gm/50 Ml Syringe IV-PUSH 12/09/25 22:46 PRN PRN Hypoglycemia Glucose 0 gm 12/09/24 22:47 Dextrose 40% Gel 15 Gm Tube PO 12/09/25 22:46 PRN PRN Hypoglycemia Heparin Sodium (Porcine) 5,000 unit 12/10/24 06:00 12/11/24 05:20 Heparin 5,000 Unit/Ml Vial SUBCUT 12/10/25 05:59 5,000 unit Q8HR LARS Administration Propofol 1,000 mg in 100 mls @ 10.524 mls/hr 12/09/24 22:15 12/11/24 08:30 Diprivan IV 12/09/25 22:14 Not Given .Q9H31M LARS Protocol 20 MCG/KG/MIN Piperacillin Sod/Tazobactam Sod 4.5 gm in 100 mls @ 25 mls/hr 12/10/24 17:30 12/11/24 10:11 Zosyn IV 25 mls/hr Q8H LARS Administration Insulin Aspart 0 units 12/10/24 12:00 12/11/24 06:00 Insulin Aspart 300 Units/3 Ml SUBCUT 12/10/25 11:59 Not Given Q6HR COUNTS INCLUDE 234 BEDS AT THE [facility] Protocol Methylprednisolone Sodium Succinate 40 mg 12/10/24 06:00 12/11/24 05:20 Methylprednisolone Sod Succ/Pf 40 Mg/Ml (1ml) Vial IV-PUSH 12/10/25 05:59 40 mg Q8HR LARS Administration Oseltamivir Phosphate 75 mg 12/10/24 09:50 12/11/24 10:12 Oseltamivir Phosphate 75 Mg Capsule OG-TUBE 12/14/24 21:01 75 mg BID LARS Administration Pantoprazole Sodium 40 mg 12/10/24 09:00 12/11/24 08:29 Pantoprazole 40 Mg Vial IV-PUSH 12/10/25 08:59 40 mg DAILY LARS Administration Propofol 0 mg 12/09/24 22:08 Propofol - Infusion Bolus 1,000 Mg/100 Ml Vial IV 12/09/25 22:07 PROTOCOL PRN Bolus Documentation Sodium Chloride 10 ml 12/09/24 22:08 12/11/24 08:29 Sodium Chloride 0.9 % 10 Ml Vial.Pf INJECTION 12/09/25 22:07 10 ml PRN PRN Administration Dilution Sodium Chloride 10 ml 12/09/24 22:08 Sodium Chloride 0.9 % 10 Ml Syringe IV-PUSH 12/09/25 22:07 PRN PRN Flush A&P - Hospitalist Assessment/Plan (1) Acute hypoxic respiratory failure: (2) COPD exacerbation: (3) Aspiration pneumonia: (4) HTN (hypertension): (5) Diabetes type 2: (6) Dyslipidemia: (7) Depression: Plan Apneic and hypoxic respiratory failure in the setting of COPD exacerbation CO2 narcosis Hypotension could be from sedation but also need to rule out septic shock from superimposed bacterial pneumonia (given the viscid secretions from the ETT) Hyponatremia, appears to be due to dehydration (toast and beer) as the daughter told me that her mom always drinks pop and coffee no water. Elevated troponin likely type 2 OH -Continue to admit in ICU -Continue on mechanical ventilation and wean as appropriate and SAT and SBT daily -Continue on steroids, bronchodilator, oseltamivir and antibiotics -ICU consult-appreciate recommendation -As per her daughter, pt does not drink alcohol or use drugs, She is a very active smoker -HSQ for DVT prophylaxis -Pantoprazole IV 40 mg daily for GI prophylaxis -Full code -consulted cardio Documented By: Daniel Garza MD 12/11/24 1431 Signed By: <Electronically signed by Daniel Garza MD> 12/11/24 1443 [facility] Work Phone: 1([phone]) [phone] [address] Pulmonology Progress Note Signed Patient: Zuleyka Chaudhry MR#: [id number] : 1955 Acct:[id number] Age/Sex: 69 / F Adm Date: 5 Loc: Room: [address] [place] [address] Type: ADM IN Attending Dr: Daniel Garza MD Copies to: ~ Date of Service: 12/11/2024 Subjective Subjective Narrative: More awake and alert after decreasing sedation. Moderate ET tube secretions pernursing staff. Improved oxygen saturation on current ventilator setting. Hemodynamics are okay. Exam Physical Exam Vital Signs: Temp Pulse Resp BP Pulse Ox O2 Del Method O2 Flow Rate 97.8 F 79 24 133/69 99 Nasal Cannula 4 12/11/24 08:00 12/11/24 11:00 12/11/24 11:00 12/11/24 11:00 12/11/24 11:00 12/11/24 12:09 12/11/24 12:09 FiO2 40 12/11/24 12:00 Narrative: General: Sedated but easily arouses, appears in mild respiratory distress Neck: Supple. Pulmonary: Diminished breath sounds to both lung ernst without wheezing. Cardiovascular: Regular rate and rhythm. No murmurs Abdomen: Soft, nontender and nondistended. Extremities: No edema. Objective Intake and Output I&O - Last 24 Hours: Intake & Output 12/10/24 12/11/24 12/11/24 23:59 07:59 15:59 Intake Total 360 / 570 160 / 160 Output Total 475 / 2725 350 / 350 Balance -115 / -2155 -190 / -190 Weight 84.6 kg Labs 12/11/24 04:14 12/11/24 04:14 Microbiology Micro: Microbiology 3 12/09/24 21:45 Aerobic Culture - Preliminary Sputum - Endotrachael Light Normal Respiratory Chase 1 Day Gram Stain - Final 12/09/24 22:47 Blood Culture - Preliminary Blood - Left Hand No Growth 1 Day 12/09/24 21:43 Blood Culture - Preliminary Blood - Left Forearm No Growth 1 Day Assessment/Plan Assessment/Plan (1) Acute hypoxic respiratory failure: Plan: Likely secondary to underlying COPD with an acute exacerbation, likely triggeredby an acute influenza A infection. Evidence of bibasilar infiltrates on her chest x-ray as well with concern for superimposed bacterial pneumonia. Improving with current treatment and I was able to wean down her FiO2 to 40% today. Subsequently I placed her on CPAP trial 5 over 540% and she tolerated well. Nowextubated and placedon nasal cannula. Will continue with current coverage with Zosyn given her positive blood culturesfor MSSA. Continue with Tamiflu for 5 days. Continue systemic steroids and bronchodilator therapy. (2) Hypotension: Plan: Likely multifactorial with possible sepsis, dehydration and medication induced. Improved and now off pressors. Doubt the significance of her positive troponinsand likely due to demand ischemia. Plan Plan of care was discussed with the family at bedside. Critical care time was 32 minutes. Documented By: Cecilia Ruiz MD 12/11/24 1446 Signed By: 12/11/24 1449 [facility]01-28-20[place] [address] Hospitalist Progress Note Signed Patient: Zuleyka Chaudhry MR#: [id number] : 1955 Acct:[id number] Age/Sex: 69 / F Adm Date: 5 Loc: Room: [address] [place] [address] Type: ADM IN Attending Dr: Daniel Garza MD Copies to: ~ Date of Service: 12/11/2024 Subjective Subjective Narrative: This is a 69 y.o female with past medical history of COPD, dyslipidemia, hypertension, type 2 diabetes as well as GERD and depression. Patient came to [facility] after she was intubated by the EMS, she was found unresponsive by her boyfriend who does not know how long she was down upon arrival thepatient was breathing but agonal and she was not responding and she did have a pulse. The family atthe bedside mentioned that the patient has been complaining of shortness of breath for the last 2 days no chest pain no nausea no vomiting and no other concerns as per [facility] documentation. Labs at [facility] showed CBC with leukocytosis and left shift, hemoglobin of 10.6. Platelet count was 225. Chemistry showed sodium of 128 with potassium of3.1 and chloride of 95 as well as BUN of 18 and creatinine of 0.98 and bicarb of25.8. Lactic acid was 1.8. Magnesium was 1.3. Liver function werenot impressive. Her blood glucose was 221 she did have a UA that showed no signs ofUTI. Her ABG wasdone at [facility] ER showed pH of 7.16 as well as PaCO2 of 71.5. She was intubated by EMS, was given 100 mg of succinylcholine 60 mg of ketamine and then 50 mg of fentanyl and 5 mg of Versed as well as 6.4 mg of Elconin. Also they reached out to cardiology at [facility] recommending again heparinization. EKG showed sinus tachycardia with RBBB. CXR showed calcified granuloma of the mediastinum. No acute consolidation. Stable emphysematous changes. Osseous structures appear intact. CT head withoutcontrast was negative for acute pathology. CTcervical spine without contrast was negative for acute fracture or dislocation. It did show multilevel degenerative changes of the cervical spine. Diffuse demineralization of bone. Patient was admitted in the ICU and was continued on mechanical ventilation and was started on bronchodilator steroid antibiotics and oseltamivir. Mold Shaker was consulted who recommended continuing the same. Duringthe stay her patient is slowly weaned off mechanical ventilation. Due to elevated troponin cardiology was consulted who recommended echocardiography. Transthoracic echocardiography showed normal ejection fraction of 65 to 73% withnormal wall motion. sputum culture-light normal respiratory chase. Blood culture-no growth 1 day. Interval history-patient is not on any vasopressors. Mechanically ventilated with 5 of PEEP and 55%FiO2. Patient is following commands. Exam Physical Exam Vital Signs: Temp Pulse Resp BP Pulse Ox O2 Del Method O2 Flow Rate 97.8 F 79 24 133/69 99 Nasal Cannula 4 12/11/24 08:00 12/11/24 11:00 12/11/24 11:00 12/11/24 11:00 12/11/24 11:00 12/11/24 12:09 12/11/24 12:09 FiO2 40 12/11/24 12:00 Narrative: General: Mechanically ventilated but following commands HEENT: head atraumatic, normocephalic, moist mucous membranes Neck: supple no masses, no lymphadenopathy CVS: regular rate and rhythm, no murmurs or gallops Respiratory: diminished breath sound bilaterally but no wheezing or crackles heart GI: soft, nondistended, nontender, positive bowel sounds with no organomegaly Extremity: moves all extremities, no restrictions of movements, no calf tenderness Neuro: Moves all extremities in all planes of motion. Skin: intact no rashes or lesions Objective Lab Results 12/11/24 04:14 12/11/24 04:14 Microbiology Results Microbiology 12/09/24 21:45 Sputum - Endotrachael Aerobic Culture - Preliminary Light Normal Respiratory Chase 1 Day 12/09/24 21:45 Sputum - Endotrachael Gram Stain - Final 12/09/24 22:47 Blood - Left Hand Blood Culture - Preliminary No Growth 1 Day 12/09/24 21:43 Blood - Left Forearm Blood Culture - Preliminary No Growth 1 Day ABG Interpretation ABG results: 12/11/24 04:22 ABG pH 7.36 ABG pCO2 40.3 ABG pO2 126.0 H* ABG HCO3 22.2 L ABG Total CO2 23.4 ABG O2 Saturation 98.1 ABG O2 Content 6.9 ABG Base Excess -3.0 Meds Allergies and Active Meds Allergies No Known Allergies Allergy (Verified 12/09/24 23:48) Active Meds: Active Medications Generic Name Dose Route Start Last Admin Trade Name Karanq PRN Reason Stop Dose Admin Acetaminophen 650 mg 12/10/24 10:28 12/10/24 11:34 Acetaminophen 650 Mg/20.3 Ml Oral.Susp PO 12/10/25 10:27 650 mg Q6H PRN Administration Fever or Pain Albuterol 6 puff 12/10/24 00:00 12/11/24 12:08 Albuterol Hfa 200 Puff/18 Gm Inhaler VENT 12/10/25 00:00 Not Given Q6HR LARS Chlorhexidine Gluconate 15 ml 12/10/24 09:00 12/11/24 08:28 Chlorhexidine Gluconate 0.12% 15 Ml Udc MUCOUS MEM 12/10/25 08:59 15 ml BID LARS Administration Dextrose 0 gm 12/09/24 22:47 Dextrose 50% In Water 25 Gm/50 Ml Syringe IV-PUSH 12/09/25 22:46 PRN PRN Hypoglycemia Glucose 0 gm 12/09/24 22:47 Dextrose 40% Gel 15 Gm Tube PO 12/09/25 22:46 PRN PRN Hypoglycemia Heparin Sodium (Porcine) 5,000 unit 12/10/24 06:00 12/11/24 05:20 Heparin 5,000 Unit/Ml Vial SUBCUT 12/10/25 05:59 5,000 unit Q8HR LARS Administration Propofol 1,000 mg in 100 mls @ 10.524 mls/hr 12/09/24 22:15 12/11/24 08:30 Diprivan IV 12/09/25 22:14 Not Given .Q9H31M LARS Protocol 20 MCG/KG/MIN Piperacillin Sod/Tazobactam Sod 4.5 gm in 100 mls @ 25 mls/hr 12/10/24 17:30 12/11/24 10:11 Zosyn IV 25 mls/hr Q8H LARS Administration Insulin Aspart 0 units 12/10/24 12:00 12/11/24 06:00 Insulin Aspart 300 Units/3 Ml SUBCUT 12/10/25 11:59 Not Given Q6HR LARS Protocol Methylprednisolone Sodium Succinate 40 mg 12/10/24 06:00 12/11/24 05:20 Methylprednisolone Sod Succ/Pf 40 Mg/Ml (1ml) Vial IV-PUSH 12/10/25 05:59 40 mg Q8HR LARS Administration Oseltamivir Phosphate 75 mg 12/10/24 09:50 12/11/24 10:12 Oseltamivir Phosphate 75 Mg Capsule OG-TUBE 12/14/24 21:01 75 mg BID LARS Administration Pantoprazole Sodium 40 mg 12/10/24 09:00 12/11/24 08:29 Pantoprazole 40 Mg Vial IV-PUSH 12/10/25 08:59 40 mg DAILY LARS Administration Propofol 0 mg 12/09/24 22:08 Propofol - Infusion Bolus 1,000 Mg/100 Ml Vial IV 12/09/25 22:07 PROTOCOL PRN Bolus Documentation Sodium Chloride 10 ml 12/09/24 22:08 12/11/24 08:29 Sodium Chloride 0.9 % 10 Ml Vial.Pf INJECTION 12/09/25 22:07 10 ml PRN PRN Administration Dilution Sodium Chloride 10 ml 12/09/24 22:08 Sodium Chloride 0.9 % 10 Ml Syringe IV-PUSH 12/09/25 22:07 PRN PRN Flush A&P - Hospitalist Assessment/Plan (1) Acute hypoxic respiratory failure: (2) COPD exacerbation: (3) Aspiration pneumonia: (4) HTN (hypertension): (5) Diabetes type 2: (6) Dyslipidemia: (7) Depression: Plan Apneic and hypoxic respiratory failure in the setting of COPD exacerbation CO2 narcosis Hypotension could be from sedation but also need to rule out septic shock from superimposed bacterial pneumonia (given the viscid secretions from the ETT) Hyponatremia, appears to be due to dehydration (toast and beer) as the daughter told me that her mom always drinks pop and coffee no water. Elevated troponin likely type 2 OH -Continue to admit in ICU -Continue on mechanical ventilation and wean as appropriate and SAT and SBT daily -Continue on steroids, bronchodilator, oseltamivir and antibiotics -ICU consult-appreciate recommendation -As per her daughter, pt does not drink alcohol or use drugs, She is a very active smoker -HSQ for DVT prophylaxis -Pantoprazole IV 40 mg daily for GI prophylaxis -Full code -consulted cardio Documented By: Daniel Garza MD 12/11/24 1431 Signed By: 12/11/24 1443 [facility]01-28-2025 Consult note Author Krissy Cortez [facility] Note Date/Time December 10, 2024 1 0:30pm [facility] [address] [place] [address] Cardiology Consult Note Signed Patient: Zuleyka Chaudhry MR#: [id number] : 1955 Acct:[id number] Age/Sex: 69 / F Adm Date: 5 Loc: Room: [address] [place] [address] Type: ADM IN Attending Dr: Daniel Garza MD Copies to: MD Daniel Cruz TEACHING FELLOW-C Suman Butler DO,RES Krissy Cortez MD~ Cardiology HPI History of Present Illness Consult Date: 12/10/24 Reason for Consult: Elevated troponin HPI: History is limited as the patient is currently intubated. History was obtained through review of prior documentation and discussion with hospital staff. No family is present at bedside to help corroborate history. Ms. Chaudhry is a 69 yearold female with past medical history of COPD, dyslipidemia, hypertension, type 2diabetes, GERD and depression who was transferred to our facility from [facility] last night. Per prior documentation, the patient arrived to [facility] ER after being intubated by EMS. She was reportedly found unresponsive by her boyfriend (unknown downtime) and was not responding. Additionally, prior documentation reveals that family was noting the patient complaining of shortness of breath for 2 days prior to arrival in the emergency department. [facility] labs revealed a leukocytosis, hemoglobin of 10.6, platelets 225, high-sensitivity troponin 727, sodium 128, lactic acid 1.8 and ABG with a pH of 7.16 and PaCO2 71.5. Since being in our facility, the patient has remained intubated with improving hypotension. Most recent labs reveal leukocytosis with white blood cell count of 15.2, hemoglobin 10.1, ABG with pH of 7.34, improving hyponatremia to 130 andtroponins flat at 1309. Blood and sputum cultures are pending. UDS was positive for opiates and benzodiazepines. Cardiology was consulted for elevatedtroponins. Upon my evaluation of the patient in the ICU, she is asleep and intubated. She will intermittently open her eyes and squeezes my fingers when prompted to. It is difficult to ascertain if she is having any chest pain as she is intubated and falling asleep intermittently throughout the encounter. Review of Systems Review of Systems Unobtainable due to endotracheal tube [facility] Medical History (Updated 12/10/24 @ 15:52 by Suman Butler DO, RES) Depressed Acute hypoxic respiratory failure Depression Dyslipidemia Diabetes type 2 HTN (hypertension) COPD exacerbation Social History Smoking Status: Unknown if ever smoked Meds Medications and Allergies Allergies No Known Allergies Allergy (Verified 12/09/24 23:48) Home Medications albuterol sulfate 90 mcg/actuation aerosol inhaler inhalation 12/10/24 [History] atorvastatin 40 mg tablet mg 12/10/24 [History] fluticasone fur. 200 mcg-umeclid 62.5 mcg-vilant 25 mcg inhalat.powder (Trelegy Ellipta) inhalation 12/10/24 [History] losartan 50 mg tablet mg 12/10/24 [History] meloxicam 7.5 mg tablet mg 12/10/24 [History] metformin 500 mg tablet mg 12/10/24 [History] omeprazole 20 mg capsule,delayed release mg 12/10/24 [History] sertraline 50 mg tablet mg 12/10/24 [History] Exam Physical Exam Vital Signs: Temp Pulse Resp BP Pulse Ox O2 Del Method FiO2 98.5 F 74 19 114/63 95 Mechanical Ventilation 50 12/10/24 05:00 12/10/24 08:24 12/10/24 08:24 12/10/24 05:00 12/10/24 05:00 12/10/24 05:00 12/10/24 10:00 Narrative: General: Intermittently awake, intubated HENT: NC, AT Eyes: No scleral icterus Neck: Supple, trachea midline Cardio: RRR, no murmurs, rubs or gallops Respiratory: Anteriorly clear to auscultation bilaterally without wheezes, rales or rhonchi GI: Soft, nontender, nondistended Neuro: Limited as the patient is intubated. She does open her eyes and squeezes my fingers when prompted to Extremities: No edema to the bilateral lower extremities : Lopez catheter in place with approximately 1100 cc of yellow urine in the Lopez bag Psych: Unable to gauge as patient cannot talk due to her being intubated Results - Cardiology Labs 12/10/24 03:55 12/10/24 03:55 Lab results: Cardiac Enzymes 12/09/24 12/10/24 Range/Units 21:43 03:55 AST 61 H 50 H (13-39) U/L Lipids 12/09/24 Range/Units 21:43 Triglycerides 63 (35-149) mg/dL CBC 12/09/24 12/10/24 Range/Units 21:43 03:55 RBC 3.80 3.57 L (3.60-5.00) x10E6/uL Hgb 10.7 L 10.1 L (11.8-15.4) g/dL Hct 33.0 L 31.0 L (34.0-46.4) % Plt Count 236 236 (150-450) x10E3/uL Neut # (Auto) N/A 14.4 H Lymph # (Auto) N/A 0.2 L Mckinley # (Auto) N/A 0.5 Eos # (Auto) N/A 0.0 Baso # (Auto) N/A 0.1 Comprehensive Metabolic Panel 12/09/24 12/10/24 Range/Units 21:43 03:55 Sodium 127 L 130 L (136-145) mmol/L Potassium 3.2 L 3.3 L (3.5-5.1) mmol/L Chloride 97 L 101 (98-107) mmol/L Carbon Dioxide 24.6 22.0 (21.0-31.0) mmol/L BUN 16 14 (7-25) mg/dL Creatinine 0.68 0.64 (0.60-1.20) mg/dL Glucose 186 H 151 H (70-100) mg/dL Calcium 7.1 L 7.0 L (8.6-10.3) mg/dL AST 61 H 50 H (13-39) U/L ALT 82 H 71 H (7-52) U/L Alkaline Phosphatase 78 69 (34-104) U/L Total Protein 5.9 L 5.6 L (6.4-8.9) gm/dL Albumin 3.6 3.4 L (3.5-5.7) gm/dL Intake and Output 12/09/24 12/10/24 12/10/24 23:59 07:59 15:59 Intake Total 0 / 0 Output Total 1150 / 1150 Balance -1150 / -1150 Intake: Oral 0 / 0 Output: Urine Amount (Catheter) 1150 / 1150 Urethral (Lopez) 1150 / 1150 Other: Weight 87.7 kg 87.7 kg Patient Weight 12/10/24 23:59 Weight 87.7 kg A&P - Cardiology (1) Acute hypoxic respiratory failure: Code(s): J96.01 - Acute respiratory failure with hypoxia (2) COPD exacerbation: Code(s): J44.1 - Chronic obstructive pulmonary disease with (acute) exacerbation (3) Influenza A: Code(s): J10.1 - Influenza due to other identified influenza virus with other respiratory manifestations (4) Elevated troponin: Code(s): R79.89 - Other specified abnormal findings of blood chemistry (5) Hypotension: Qualifiers: Hypotension type: unspecified hypotension type Qualified Code(s): I95.9 - Hypotension, unspecified Code(s): I95.9 - Hypotension, unspecified Plan # Acute hypoxic respiratory failure in the setting of COPD exacerbation - likely secondary to her acute influenza A infection # Elevated troponin - this is likely demand ischemia secondary to her acute hypoxic respiratory failure # Hypotension - this may be secondary to sedation, but could also be related to her acute illness -Will defer treatment of the patient's acute hypoxic respiratory failure to the primary and ICU team. Do not suspect this to be cardiac in etiology -Troponins have been flat since being in our facility; 1309 -> 1309 on recheck about 9 hours later -EKG from [facility] reviewed and shows sinus tachycardia with right bundle branch block without evidence of ischemic changes -I believe the elevated troponins indicative of a type II OH and have low suspicion for type I OH, however will obtain echocardiogram for further evaluation -Given her age, I would recommend outpatient stress test -Do not feel she necessitates inpatient ischemic evaluation -Her hypotension seems to be improving with IV fluids Attending attestation: I saw the patient personally on the day of encounter. I reviewed the relevant history, and performed the barrow elements of the physical examination. I reviewed the relevant laboratory workup, radiological studies and the current treatment plan and I agree with the resident's note. Type II OH in the setting of acute hypoxic respiratory failure. ECHO shows normal LVEF 65-70% with normal wall motion. Can consider stress MPI as outpatient once recovered from acute resp issues. Cardiology will see again as needed. = Documented By: Krissy Cortez MD 12/10/24 1020 Signed By: <Electronically signed by Krissy Cortez MD> 12/10/242229 <Electronically signed by DO DEVEN Butler> 12/10/[address] [facility] Work Phone: 1(780) [phone] [place] [address] Cardiology Consult Note Signed Patient: Zuleyka Chaudhry MR#: [id number] : 1955 Acct:[id number] Age/Sex: 69 / F Adm Date: 5 Loc: Room: [address] [place] [address] Type: ADM IN Attending Dr: Daniel Garza MD Copies to: MD Daniel Cruz NP-C Suman Butler DO,RES Krissy Cortez MD~ Cardiology HPI History of Present Illness Consult Date: 12/10/24 Reason for Consult: Elevated troponin HPI: History is limited as the patient is currently intubated. History was obtained through review of prior documentation and discussion with hospital staff. No family is present at bedside to help corroborate history. Ms. Chaudhry is a 69 yearold female with past medical history of COPD, dyslipidemia, hypertension, type 2diabetes, GERD and depression who was transferred to our facility from [facility] lastnight. Per prior documentation, the patient arrived to [facility] ER after being intubated by EMS. She was reportedly found unresponsive by her boyfriend (unknown downtime) and was not responding. Additionally, prior documentation reveals that family was noting the patient complaining of shortness ofbreath for 2 days prior to arrival in the emergency department. [facility] labs revealed a leukocytosis, hemoglobin of 10.6, platelets 225, high- sensitivity troponin 727, sodium 128, lactic acid 1.8 and ABG with a pH of 7.16 and PaCO2 71.5. Since being in our facility, the patient has remained intubated with improving hypotension. Most recent labs reveal leukocytosis with white blood cell count of 15.2, hemoglobin 10.1, ABG with pH of 7.34, improving hyponatremia to 130 andtroponins flat at 1309. Blood and sputum cultures are pending.UDS was positive for opiates and benzodiazepines. Cardiology was consulted for elevatedtroponins. Upon my evaluation of the patient in the ICU, she is asleep and intubated. She will intermittently open her eyes and squeezes my fingers when prompted to. It is difficult to ascertain if she is having any chest pain as she is intubated and falling asleep intermittently throughout the encounter. Review of Systems Review of Systems Unobtainable due to endotracheal tube [facility] Medical History (Updated 12/10/24 @ 15:52 by Suman Butler DO, RES) Depressed Acute hypoxic respiratory failure Depression Dyslipidemia Diabetes type 2 HTN (hypertension) COPD exacerbation Social History Smoking Status: Unknown if ever smoked Meds Medications and Allergies Allergies No Known Allergies Allergy (Verified 12/09/24 23:48) Home Medications albuterol sulfate 90 mcg/actuation aerosol inhaler inhalation 12/10/24 [History] atorvastatin 40 mg tablet mg 12/10/24 [History] fluticasone fur. 200 mcg-umeclid 62.5 mcg-vilant 25 mcg inhalat.powder (Trelegy Ellipta) [id number] [History] losartan 50 mg tablet mg 12/10/24 [History] meloxicam 7.5 mg tablet mg 12/10/24 [History] metformin 500 mg tablet mg 12/10/24 [History] omeprazole 20 mg capsule,delayed release mg 12/10/24 [History] sertraline 50 mg tablet mg 12/10/24 [History] Exam Physical Exam Vital Signs: Temp Pulse Resp BP Pulse Ox O2 Del Method FiO2 98.5 F 74 19 114/63 95 Mechanical Ventilation 50 12/10/24 05:00 12/10/24 08:24 12/10/24 08:24 12/10/24 05:00 12/10/24 05:00 12/10/24 05:00 12/10/24 10:00 Narrative: General: Intermittently awake, intubated HENT: NC, AT Eyes: No scleral icterus Neck: Supple, trachea midline Cardio: RRR, no murmurs, rubs or gallops Respiratory: Anteriorly clear to auscultation bilaterally without wheezes, rales or rhonchi GI: Soft, nontender, nondistended Neuro: Limited as the patient is intubated. She does open her eyes and squeezes my fingers when prompted to Extremities: No edema to the bilateral lower extremities : Lopez catheter in place with approximately 1100 cc of yellow urine in the Lopez bag Psych: Unable to gauge as patient cannot talk due to her being intubated Results - Cardiology Labs 12/10/24 03:55 12/10/24 03:55 Lab results: Cardiac Enzymes 12/09/24 12/10/24 Range/Units 21:43 03:55 AST 61 H 50 H (13-39) U/L Lipids 12/09/24 Range/Units 21:43 Triglycerides 63 (35-149) mg/dL CBC 12/09/24 12/10/24 Range/Units 21:43 03:55 RBC 3.80 3.57 L (3.60-5.00) x10E6/uL Hgb 10.7 L 10.1 L (11.8-15.4) g/dL Hct 33.0 L 31.0 L (34.0-46.4) % Plt Count 236 236 (150-450) x10E3/uL Neut # (Auto) N/A 14.4 H Lymph # (Auto) N/A 0.2 L Mckinley # (Auto) N/A 0.5 Eos # (Auto) N/A 0.0 Baso # (Auto) N/A 0.1 Comprehensive Metabolic Panel 12/09/24 12/10/24 Range/Units 21:43 03:55 Sodium 127 L 130 L (136-145) mmol/L Potassium 3.2 L 3.3 L (3.5-5.1) mmol/L Chloride 97 L 101 (98-107) mmol/L Carbon Dioxide 24.6 22.0 (21.0-31.0) mmol/L BUN 16 14 (7-25) mg/dL Creatinine 0.68 0.64 (0.60-1.20) mg/dL Glucose 186 H 151 H (70-100) mg/dL Calcium 7.1 L 7.0 L (8.6-10.3) mg/dL AST 61 H 50 H (13-39) U/L ALT 82 H 71 H (7-52) U/L Alkaline Phosphatase 78 69 (34-104) U/L Total Protein 5.9 L 5.6 L (6.4-8.9) gm/dL Albumin 3.6 3.4 L (3.5-5.7) gm/dL Intake and Output 12/09/24 12/10/24 12/10/24 23:59 07:59 15:59 Intake Total 0 / 0 Output Total 1150 / 1150 Balance -1150 / -1150 Intake: Oral 0 / 0 Output: Urine Amount (Catheter) 1150 / 1150 Urethral (Lopez) 1150 / 1150 Other: Weight 87.7 kg 87.7 kg Patient Weight 12/10/24 23:59 Weight 87.7 kg A&P - Cardiology (1) Acute hypoxic respiratory failure: Code(s): J96.01 - Acute respiratory failure with hypoxia (2) COPD exacerbation: Code(s): J44.1 - Chronic obstructive pulmonary disease with (acute) exacerbation (3) Influenza A: Code(s): J10.1 - Influenza due to other identified influenza virus with other respiratory manifestations (4) Elevated troponin: Code(s): R79.89 - Other specified abnormal findings of blood chemistry (5) Hypotension: Qualifiers: Hypotension type: unspecified hypotension type Qualified Code(s): I95.9 - Hypotension, unspecified Code(s): I95.9 - Hypotension, unspecified Plan # Acute hypoxic respiratory failure in the setting of COPD exacerbation - likely secondary to her acute influenza A infection # Elevated troponin - this is likely demand ischemia secondary to her acute hypoxic respiratory failure # Hypotension - this may be secondary to sedation, but could also be related to her acute illness -Will defer treatment of the patient's acute hypoxic respiratory failure to the primary and ICU team. Do not suspect this to be cardiac in etiology -Troponins have been flat since being in our facility; 1309 -> 1309 on recheck about 9 hours later -EKG from [facility] reviewed and shows sinus tachycardia with right bundle branch block without evidence of ischemic changes -I believe the elevated troponins indicative of a type II OH and have low suspicion for type I OH, however will obtain echocardiogram for further evaluation -Given her age, I would recommend outpatient stress test -Do not feel she necessitates inpatient ischemic evaluation -Her hypotension seems to be improving with IV fluids Attending attestation: I saw the patient personally on the day of encounter. I reviewed the relevant history, and performed the barrow elements of the physical examination. I reviewed the relevant laboratory workup, radiological studies and the current treatment plan and I agree with the resident's note. Type II OH in the setting of acute hypoxic respiratory failure. ECHO shows normal LVEF 65-70% with normal wall motion. Can consider stress MPI as outpatient once recovered from acute resp issues. Cardiology will see again as needed. = Documented By: Krissy Cortez MD 12/10/24 1020 Signed By: 12/10/24 2230 12/10/24 1554 [facility]01-27-2025 Progress note Author Daniel Garza [facility] Note Date/Time December 10, 2024 8 :26pm [facility] [address] [place] [address] Hospitalist Progress Note Signed Patient: Zuleyka Chaudhry MR#: [id number] : 1955 Acct:[id number] Age/Sex: 69 / F Adm Date: 5 Loc: Room: 4X6549-5 Type: ADM IN Attending Dr: Daniel Garza MD Copies to: ~ Date of Service: 12/10/2024 Subjective Subjective Narrative: This is a 69 y.o female that appears from the medication reconciliation [facility], patient appears to have past medical history of COPD, dyslipidemia, hypertension, type 2 diabetes as well as GERD and depression. Patient came to [facility] ER after she was intubated by the EMS, she was found unresponsive by her boyfriend who does not know how long she was down upon arrival the patient was breathing but agonal and she was not responding and she did have a pulse. The family at the bedside mentioned that the patient has beencomplaining of shortness of breath for the last 2 days no chest pain no nausea no vomiting and no other concerns as per [facility] documentation. Labs at [facility] showed CBC with leukocytosis and left shift, hemoglobin of 10.6. Platelet count was 225. Chemistry showed sodium of 128 with potassium of3.1 and chloride of 95 as well as BUN of 18 and creatinine of 0.98 and bicarb of25.8. Lactic acid was 1.8. Magnesium was 1.3. Liver function were not impressive. Her blood glucose was 221 she did have a UA that showed no signs ofUTI. Her ABG was done at [facility] ER showed pH of 7.16 as well as PaCO2 of 71.5. She was intubated by EMS, was given 100 mg of succinylcholine 60 mg of ketamine and then 50 mg of fentanyl and 5 mg of Versed as well as 6.4 mg of Elconin. Also they reached out to cardiology at [facility] recommending again heparinization. EKG showed sinus tachycardia with RBBB. CXR showed calcified granuloma of the mediastinum. No acute consolidation. Stable emphysematous changes. Osseous structures appear intact. CT head withoutcontrast was negative for acute pathology. CT cervical spine without contrast was negative for acute fracture or dislocation. It did show multilevel degenerative changes of the cervical spine. Diffuse demineralization of bone. Interval history-patient is not on any vasopressors. Mechanically ventilated with 8 of PEEP and 55% FiO2. Patient is following commands. Exam Physical Exam Vital Signs: Temp Pulse Resp BP Pulse Ox O2 Del Method FiO2 97.8 F 77 18 98/59 L 93 L Mechanical Ventilation 55 12/10/24 16:00 12/10/24 18:00 12/10/24 18:00 12/10/24 18:00 12/10/24 18:00 12/10/24 18:00 12/10/24 18:00 Narrative: General: Mechanically ventilated but following commands HEENT: head atraumatic, normocephalic, moist mucous membranes Neck: supple no masses, no lymphadenopathy CVS: regular rate and rhythm, no murmurs or gallops Respiratory: diminished breath sound bilaterally but no wheezing or crackles heart GI: soft, nondistended, nontender, positive bowel sounds with no organomegaly Extremity: moves all extremities, no restrictions of movements, no calf tenderness Neuro: Moves all extremities in all planes of motion. Skin: intact no rashes or lesions Objective Lab Results 12/10/24 03:55 12/10/24 03:55 Microbiology Results Microbiology 12/09/24 21:45 Sputum - Endotrachael Gram Stain - Final Meds Allergies and Active Meds Allergies No Known Allergies Allergy (Verified 12/09/24 23:48) Active Meds: Active Medications Generic Name Dose Route Start Last Admin Trade Name Micheline PRN Reason Stop Dose Admin Acetaminophen 650 mg 12/10/24 10:28 12/10/24 11:34 Acetaminophen 650 Mg/20.3 Ml Oral.Susp PO 12/10/25 10:27 650 mg Q6H PRN Administration Fever or Pain Albuterol 6 puff 12/10/24 00:00 12/10/24 17:42 Albuterol Hfa 200 Puff/18 Gm Inhaler VENT 12/10/25 00:00 6 puff Q6HR LARS Administration Chlorhexidine Gluconate 15 ml 12/10/24 09:00 12/10/24 20:18 Chlorhexidine Gluconate 0.12% 15 Ml Udc MUCOUS MEM 12/10/25 08:59 15 ml BID LARS Administration Dextrose 0 gm 12/09/24 22:47 Dextrose 50% In Water 25 Gm/50 Ml Syringe IV-PUSH 12/09/25 22:46 PRN PRN Hypoglycemia Glucose 0 gm 12/09/24 22:47 Dextrose 40% Gel 15 Gm Tube PO 12/09/25 22:46 PRN PRN Hypoglycemia Heparin Sodium (Porcine) 5,000 unit 12/10/24 06:00 12/10/24 13:56 Heparin 5,000 Unit/Ml Vial SUBCUT 12/10/25 05:59 5,000 unit Q8HR LARS Administration Propofol 1,000 mg in 100 mls @ 10.524 mls/hr 12/09/24 22:15 12/10/24 16:45 Diprivan IV 12/09/25 22:14 Not Given .Q9H31M LARS Protocol 20 MCG/KG/MIN Piperacillin Sod/Tazobactam Sod 4.5 gm in 100 mls @ 25 mls/hr 12/10/24 17:30 12/10/24 17:33 Zosyn IV 25 mls/hr Q8H LARS Administration Insulin Aspart 0 units 12/10/24 12:00 12/10/24 17:34 Insulin Aspart 300 Units/3 Ml SUBCUT 12/10/25 11:59 Not Given Q6HR LARS Protocol Methylprednisolone Sodium Succinate 40 mg 12/10/24 06:00 12/10/24 13:55 Methylprednisolone Sod Succ/Pf 40 Mg/Ml (1ml) Vial IV-PUSH 12/10/25 05:59 40 mg Q8HR LARS Administration Oseltamivir Phosphate 75 mg 12/10/24 09:50 12/10/24 20:18 Oseltamivir Phosphate 75 Mg Capsule OG-TUBE 12/14/24 21:01 75 mg BID LARS Administration Pantoprazole Sodium 40 mg 12/10/24 09:00 12/10/24 09:09 Pantoprazole 40 Mg Vial IV-PUSH 12/10/25 08:59 40 mg DAILY LARS Administration Propofol 0 mg 12/09/24 22:08 Propofol - Infusion Bolus 1,000 Mg/100 Ml Vial IV 12/09/25 22:07 PROTOCOL PRN Bolus Documentation Sodium Chloride 10 ml 12/09/24 22:08 12/10/24 09:09 Sodium Chloride 0.9 % 10 Ml Vial.Pf INJECTION 12/09/25 22:07 10 ml PRN PRN Administration Dilution Sodium Chloride 10 ml 12/09/24 22:08 Sodium Chloride 0.9 % 10 Ml Syringe IV-PUSH 12/09/25 22:07 PRN PRN Flush A&P - Hospitalist Assessment/Plan (1) Acute hypoxic respiratory failure: (2) COPD exacerbation: (3) Aspiration pneumonia: (4) HTN (hypertension): (5) Diabetes type 2: (6) Dyslipidemia: (7) Depression: Plan Apneic and hypoxic respiratory failure in the setting of COPD exacerbation CO2 narcosis Hypotension could be from sedation but also need to rule out septic shock from superimposed bacterial pneumonia (given the viscid secretions from the ETT) Hyponatremia, appears to be due to dehydration (toast and beer) as the daughter told me that her mom always drinks pop and coffee no water. Elevated troponin likely type 2 OH -Continue to admit in ICU -Continue on mechanical ventilation and wean as appropriate -Continue on steroids, bronchodilator, oseltamivir and antibiotics -ICU consult-appreciate recommendation -As per her daughter, pt does not drink alcohol or use drugs, She is a very active smoker -HSQ for DVT prophylaxis -Pantoprazole IV 40 mg daily for GI prophylaxis -Full code -consulted cardio for elevated trop-believes elevated troponin in setting of type II OH. Plan to obtain echo Documented By: Daniel Garza MD 12/10/242020 Signed By: <Electronically signed by Daniel Garza MD> 12/10/242025 [facility] Work Phone: 1(649) 545-213001-27-2025 [place] [address] Hospitalist Progress Note Signed Patient: Zuleyka Chaudhry MR#: [id number] : 1955 Acct:[id number] Age/Sex: 69 / F Adm Date: 5 Loc: Room: [address] [place] [address] Type: ADM IN Attending Dr: Daniel Garza MD Copies to: ~ Date of Service: 12/10/2024 Subjective Subjective Narrative: This is a 69 y.o female that appears from the medication reconciliation [facility], patient appears to have past medical history of COPD, dyslipidemia, hypertension, type 2 diabetes as well as GERD anddepression. Patient came to [facility] ER after she was intubated by the EMS, she was found unresponsive by her boyfriend who does not know how long she was down upon arrival the patient was breathing but agonal and she was not responding and she did have a pulse. The family at the bedside mentioned that the patient has beencomplaining of shortness of breath for the last 2 days no chest pain no nausea no vomiting and no other concerns as per [facility] documentation. Labs at [facility] showed CBC with leukocytosis and left shift, hemoglobin of 10.6. Platelet count was 225. Chemistry showed sodium of 128 with potassium of3.1 and chloride of 95 as well as BUN of 18 and creatinine of 0.98 and bicarb of25.8. Lactic acid was 1.8. Magnesium was 1.3. Liver function werenot impressive. Her blood glucose was 221 she did have a UA that showed no signs ofUTI. Her ABG wasdone at [facility] ER showed pH of 7.16 as well as PaCO2 of 71.5. She was intubated by EMS, was given 100 mg of succinylcholine 60 mg of ketamine and then 50 mg of fentanyl and 5 mg of Versed as well as 6.4 mg of Elconin. Also they reached out to cardiology at [facility] recommending again heparinization. EKG showed sinus tachycardia with RBBB. CXR showed calcified granuloma of the mediastinum. No acute consolidation. Stable emphysematous changes. Osseous structures appear intact. CT head withoutcontrast was negative for acute pathology. CTcervical spine without contrast was negative for acute fracture or dislocation. It did show multilevel degenerative changes of the cervical spine. Diffuse demineralization of bone. Interval history-patient is not on any vasopressors. Mechanically ventilated with 8 of PEEP and 55%FiO2. Patient is following commands. Exam Physical Exam Vital Signs: Temp Pulse Resp BP Pulse Ox O2 Del Method FiO2 97.8 F 77 18 98/59 L 93 L Mechanical Ventilation 55 12/10/24 16:00 12/10/24 18:00 12/10/24 18:00 12/10/24 18:00 12/10/24 18:00 12/10/24 18:00 12/10/24 18:00 Narrative: General: Mechanically ventilated but following commands HEENT: head atraumatic, normocephalic, moist mucous membranes Neck: supple no masses, no lymphadenopathy CVS: regular rate and rhythm, no murmurs or gallops Respiratory: diminished breath sound bilaterally but no wheezing or crackles heart GI: soft, nondistended, nontender, positive bowel sounds with no organomegaly Extremity: moves all extremities, no restrictions of movements, no calf tenderness Neuro: Moves all extremities in all planes of motion. Skin: intact no rashes or lesions Objective Lab Results 12/10/24 03:55 12/10/24 03:55 Microbiology Results Microbiology 12/09/24 21:45 Sputum - Endotrachael Gram Stain - Final Meds Allergies and Active Meds Allergies No Known Allergies Allergy (Verified 12/09/24 23:48) Active Meds: Active Medications Generic Name Dose Route Start Last Admin Trade Name Freq PRN Reason Stop Dose Admin Acetaminophen 650 mg 12/10/24 10:28 12/10/24 11:34 Acetaminophen 650 Mg/20.3 Ml Oral.Susp PO 12/10/25 10:27 650 mg Q6H PRN Administration Fever or Pain Albuterol 6 puff 12/10/24 00:00 12/10/24 17:42 Albuterol Hfa 200 Puff/18 Gm Inhaler VENT 12/10/25 00:00 6 puff Q6HR LARS Administration Chlorhexidine Gluconate 15 ml 12/10/24 09:00 12/10/24 20:18 Chlorhexidine Gluconate 0.12% 15 Ml Udc MUCOUS MEM 12/10/25 08:59 15 ml BID LARS Administration Dextrose 0 gm 12/09/24 22:47 Dextrose 50% In Water 25 Gm/50 Ml Syringe IV-PUSH 12/09/25 22:46 PRN PRN Hypoglycemia Glucose 0 gm 12/09/24 22:47 Dextrose 40% Gel 15 Gm Tube PO 12/09/25 22:46 PRN PRN Hypoglycemia Heparin Sodium (Porcine) 5,000 unit 12/10/24 06:00 12/10/24 13:56 Heparin 5,000 Unit/Ml Vial SUBCUT 12/10/25 05:59 5,000 unit Q8HR LARS Administration Propofol 1,000 mg in 100 mls @ 10.524 mls/hr 12/09/24 22:15 12/10/24 16:45 Diprivan IV 12/09/25 22:14 Not Given .Q9H31M LARS Protocol 20 MCG/KG/MIN Piperacillin Sod/Tazobactam Sod 4.5 gm in 100 mls @ 25 mls/hr 12/10/24 17:30 12/10/24 17:33 Zosyn IV 25 mls/hr Q8H LARS Administration Insulin Aspart 0 units 12/10/24 12:00 12/10/24 17:34 Insulin Aspart 300 Units/3 Ml SUBCUT 12/10/25 11:59 Not Given Q6HR LARS Protocol Methylprednisolone Sodium Succinate 40 mg 12/10/24 06:00 12/10/24 13:55 Methylprednisolone Sod Succ/Pf 40 Mg/Ml (1ml) Vial IV-PUSH 12/10/25 05:59 40 mg Q8HR LARS Administration Oseltamivir Phosphate 75 mg 12/10/24 09:50 12/10/24 20:18 Oseltamivir Phosphate 75 Mg Capsule OG-TUBE 12/14/24 21:01 75 mg BID LARS Administration Pantoprazole Sodium 40 mg 12/10/24 09:00 12/10/24 09:09 Pantoprazole 40 Mg Vial IV-PUSH 12/10/25 08:59 40 mg DAILY LARS Administration Propofol 0 mg 12/09/24 22:08 Propofol - Infusion Bolus 1,000 Mg/100 Ml Vial IV 12/09/25 22:07 PROTOCOL PRN Bolus Documentation Sodium Chloride 10 ml 12/09/24 22:08 12/10/24 09:09 Sodium Chloride 0.9 % 10 Ml Vial.Pf INJECTION 12/09/25 22:07 10 ml PRN PRN Administration Dilution Sodium Chloride 10 ml 12/09/24 22:08 Sodium Chloride 0.9 % 10 Ml Syringe IV-PUSH 12/09/25 22:07 PRN PRN Flush A&P - Hospitalist Assessment/Plan (1) Acute hypoxic respiratory failure: (2) COPD exacerbation: (3) Aspiration pneumonia: (4) HTN (hypertension): (5) Diabetes type 2: (6) Dyslipidemia: (7) Depression: Plan Apneic and hypoxic respiratory failure in the setting of COPD exacerbation CO2 narcosis Hypotension could be from sedation but also need to rule out septic shock from superimposed bacterial pneumonia (given the viscid secretions from the ETT) Hyponatremia, appears to be due to dehydration (toast and beer) as the daughter told me that her mom always drinks pop and coffee no water. Elevated troponin likely type 2 OH -Continue to admit in ICU -Continue on mechanical ventilation and wean as appropriate -Continue on steroids, bronchodilator, oseltamivir and antibiotics -ICU consult-appreciate recommendation -As per her daughter, pt does not drink alcohol or use drugs, She is a very active smoker -HSQ for DVT prophylaxis -Pantoprazole IV 40 mg daily for GI prophylaxis -Full code -consulted cardio for elevated trop-believes elevated troponin in setting of type II OH. Plan to obtain echo Documented By: Daniel Garza MD 12/10/242020 Signed By: 12/10/242025 [facility]01-27-2025 Consult note Author Cecilia Ruiz [facility] Note Date/Time December 10, 2024 4 :32pm [facility] [address] [place], [place] [id number] Pulmonology Consult Note Signed Patient: Zuleyka Chaudhry MR#: [id number] : 1955 Acct:[id number] Age/Sex: 69 / F Adm Date: 5 Loc: Room: [address] [place] [address] Type: ADM IN Attending Dr: Daniel Garza MD Copies to: MD Cecilia Cruz MD Brittany N Fitzpatrick, NP-C~ HPI Date/Time of Consultation: Date of Service: 12/10/2024 Time of Service: 16:25 Consulting Provider: Cecilia Ruiz Requesting Provider: Daniel Garza Reason for Consult: Respiratory failure History of Present Illness History of present illness: Ms. Chaudhry is a 69 year old female with a past medical history of COPD, dyslipidemia, hypertension, type 2 diabetes as well as GERD and depression, presented to [facility] after she was found unresponsive by her boyfriendwho does not know how long she was down upon arrival the patient was breathing but agonal and she was not responding and she did have a pulse. The patient wasintubated by EMS on site. The family mentioned that the patient has been complaining of shortness of breath for the last 2 days no chest pain no nausea no vomiting. Apparently the patient tested positive for influenza. She has had significant take ET tube secretions since admission. Review of Systems Review of Systems Unobtainable due to endotracheal tube PMFSH Medical History (Updated 12/10/24 @ 15:52 by Suman Butler DO, RES) Depressed Acute hypoxic respiratory failure Depression Dyslipidemia Diabetes type 2 HTN (hypertension) COPD exacerbation Social History Smoking Status: Unknown if ever smoked Meds Medications and Allergies Allergies No Known Allergies Allergy (Verified 12/09/24 23:48) Exam Physical Exam Vital Signs: Temp Pulse Resp BP Pulse Ox O2 Del Method FiO2 97.6 F 72 25 H 95/54 L 100 Mechanical Ventilation 55 12/10/24 12:00 12/10/24 13:55 12/10/24 13:10 12/10/24 13:55 12/10/24 12:00 12/10/24 12:00 12/10/24 15:00 Narrative: General: Sedated but easily arouses, appears in mild respiratory distress HEENT: Head normocephalic atraumatic. Neck: Supple. Pulmonary: Diminished breath sounds to both lung ernst without wheezing. Cardiovascular: Regular rate and rhythm. No murmurs Abdomen: Soft, nontender and nondistended. Extremities: No edema. Skin: No lesions MINI SHIFTER: Arouses to stimuli and follows simple commands. Results - Pulmonology Intake and Output I&O - Last 24 Hours: Intake & Output 12/10/24 12/10/24 12/10/24 07:59 15:59 23:59 Intake Total 0 / 160 160 / 160 Output Total 1150 / 2250 1100 / 2250 Balance -1150 / -2090 -940 / -2090 Weight 87.7 kg Labs 12/10/24 03:55 12/10/24 03:55 Microbiology Micro: 12/09/24 21:45 Aerobic Culture - Pending Sputum - Endotrachael Gram Stain - Final 12/09/24 22:47 Blood Culture - Pending Blood - Left Hand 12/09/24 21:43 Blood Culture - Pending Blood - Left Forearm Imaging and Cardiology Chest x-ray: Status: image reviewed by me (Chest x-ray was reviewed with minimal basilar infiltrates noted.) Assessment/Plan (1) Acute hypoxic respiratory failure: Plan: Likely secondary to underlying COPD with an acute exacerbation, likely triggeredby an acute influenza A infection. Evidence of bibasilar infiltrates on her chest x-ray as well with concern for superimposed bacterial pneumonia. Blood cultures from outside hospital was reported with 1 set positive for Staphylococcus that is not MRSA. Will continue with current coverage with Zosyn. And add Tamiflu for 5 days. Continue systemic steroids and bronchodilator therapy. The patient is requiring 50% FiO2 with intermittent desaturation. She has evidence of air trapping. I will increase her PEEP to 8 cm and hold off on weaning trials until her oxygenrequirements and secretion improves. (2) Hypotension: Plan: Likely multifactorial with possible sepsis, dehydration and medication induced. Improved and now off pressors. Doubt the significance of her positive troponinsand likely due to demand ischemia. Plan Plan of care was discussed with the family at bedside. Critical care time was 32 minutes. Documented By: Cecilia Ruiz MD 12/10/241624 Signed By: <Electronically signed by Cecilia Ruiz MD> 12/10/[address] [facility] Work Phone: 1(673) 648-992601-27-[address] [address] Pulmonology Consult Note Signed Patient: Zuleyka Chaudhry MR#: [id number] : 1955 Acct:[id number] Age/Sex: 69 / F Adm Date: 5 Loc: Room: [address] [place] [address] Type: ADM IN Attending Dr: Daniel Garza MD Copies to: MD Cecilia Cruz MD Brittany N Fitzpatrick, GREG-C~ HPI Date/Time of Consultation: Date of Service: 12/10/2024 Time of Service: 16:25 Consulting Provider: Cecilia Ruiz Requesting Provider: Daniel Garza Reason for Consult: Respiratory failure History of Present Illness History of present illness: Ms. Chaudhry is a 69 year old female with a past medical history of COPD, dyslipidemia, hypertension, type 2 diabetes as well as GERD and depression, presented to [facility] after she was found unresponsive by her boyfriendwho does not know how long she was down upon arrival the patient was breathing but agonal and she was not responding and she did have a pulse. The patient wasintubated by EMS on site. The family mentioned that the patient has been complaining of shortness of breath for thelast 2 days no chest pain no nausea no vomiting. Apparently the patient tested positive for influenza. She has had significant take ET tube secretions since admission. Review of Systems Review of Systems Unobtainable due to endotracheal tube PMFSH Medical History (Updated 12/10/24 @ 15:52 by Suman Butler DO, RES) Depressed Acute hypoxic respiratory failure Depression Dyslipidemia Diabetes type 2 HTN (hypertension) COPD exacerbation Social History Smoking Status: Unknown if ever smoked Meds Medications and Allergies Allergies No Known Allergies Allergy (Verified 12/09/24 23:48) Exam Physical Exam Vital Signs: Temp Pulse Resp BP Pulse Ox O2 Del Method FiO2 97.6 F 72 25 H 95/54 L 100 Mechanical Ventilation 55 12/10/24 12:00 12/10/24 13:55 12/10/24 13:10 12/10/24 13:55 12/10/24 12:00 12/10/24 12:00 12/10/24 15:00 Narrative: General: Sedated but easily arouses, appears in mild respiratory distress HEENT: Head normocephalic atraumatic. Neck: Supple. Pulmonary: Diminished breath sounds to both lung ernst without wheezing. Cardiovascular: Regular rate and rhythm. No murmurs Abdomen: Soft, nontender and nondistended. Extremities: No edema. Skin: No lesions MINI SHIFTER: Arouses to stimuli and follows simple commands. Results - Pulmonology Intake and Output I&O - Last 24 Hours: Intake & Output 12/10/24 12/10/24 12/10/24 07:59 15:59 23:59 Intake Total 0 / 160 160 / 160 Output Total 1150 / 2250 1100 / 2250 Balance -1150 / -2090 -940 / -0 Weight 87.7 kg Labs 12/10/24 03:55 12/10/24 03:55 Microbiology Micro: 12/09/24 21:45 Aerobic Culture - Pending Sputum - Endotrachael Gram Stain - Final 12/09/24 22:47 Blood Culture - Pending Blood - Left Hand 12/09/24 21:43 Blood Culture - Pending Blood - Left Forearm Imaging and Cardiology Chest x-ray: Status: image reviewed by me (Chest x-ray was reviewed with minimal basilar infiltrates noted.) Assessment/Plan (1) Acute hypoxic respiratory failure: Plan: Likely secondary to underlying COPD with an acute exacerbation, likely triggeredby an acute influenza A infection. Evidence of bibasilar infiltrates on her chest x-ray as well with concern for superimposed bacterial pneumonia. Blood cultures from outside hospital was reported with 1 set positive for Staphylococcus that is not MRSA. Will continue with current coverage with Zosyn. And add Tamiflu for 5 days. Continue systemic steroids and bronchodilator therapy. The patient is requiring 50% FiO2 with intermittent desaturation. She has evidence of air trapping. I will increase her PEEP to 8 cm and hold off on weaning trials until her oxygenrequirements and secretion improves. (2) Hypotension: Plan: Likely multifactorial with possible sepsis, dehydration and medication induced. Improved and now off pressors. Doubt the significance of her positive troponinsand likely due to demand ischemia. Plan Plan of care was discussed with the family at bedside. Critical care time was 32 minutes. Documented By: Cecilia Ruiz MD 12/10/241624 Signed By: 12/10/24 1632 [facility]01-26-2025 Evaluation note* Diagnosis Onset Date Resolution Status Admit Date Acute hypoxic respiratory failure acute December 09 9:05pm Aspiration pneumonia acute Joe 2024 9:05pm COPD exacerbation acute December 09, 2024 9:05pm Depression acute December 09, 2024 9:05pm Diabetes type 2 acute November 152024 9:05pm Dyslipidemia acute November 9:05pm Elevated troponin acute December 09, 2024 9:05pm HTN (hypertension) acute 2024 9:05pm Hypotension acute December 09, 2024 9:05pm Impaired mobility and activities of daily living acute 2024 9:05pm Influenza A acute December 09, 2024 9:05pm Tobacco abuse acute November 9:05pm [facility] Work Phone: 1(370) 996-795601-26-2025 Evaluation note* Diagnosis Onset Date Resolution Status Admit Date Acute hypoxic respiratory failure acute December 09 9:05pm COPD exacerbation acute December 09, 2024 9:05pm Depression acute December 09, 2024 9:05pm Diabetes type 2 acute November 152024 9:05pm Dyslipidemia acute November 9:05pm Elevated troponin acute December 09, 2024 9:05pm HTN (hypertension) acute 2024 9:05pm Impaired mobility and activities of daily living acute 2024 9:05pm Influenza A acute December 09, 2024 9:05pm Tobacco abuse acute November 9:05pm Aspiration pneumonia resolved 2024 9:05pm Hypotension resolved December 09, 2024 9:05pm [facility] Work Phone: 1(714) 398-436111-07-2024 History of Present illness Narrative* Daniel Cardoso, TEACHING FELLOW - 09/20/2024 10:53 AM ESTAssociated Problem(s): Type 2 diabetes mellitus without complication, without long-term current useof insulin ([facility]) Currently taking Metformin 500mg Most recent labs: [...] persistent hypoglycemia/hyperglycemia on home glucose monitoring noted. * Daniel Cardoso NP - 09/20/2024 10:52 AM ESTAssociated Problem(s): Other hyperlipidemia (CMS/HCC) Currently taking Atorvastatin 40mg Denies any myalgias. Continue current regimen. * Daniel Cardoso NP - 09/20/2024 10:52 AM ESTAssociated Problem(s): Primary hypertension (CMS/HCC) Currently taking Losartan-hydrochlorothiazide 50/12.5mg Checks BP at home; Bp log shows several low BP readings in the 90's systolic. Will decrease losartan hydrochlorothiazide today. Eliminate hydrochlorothiazide. Losartan 50mg only Given BP log, advised pt to record BP and bring log back with them to next visit. * Daniel Cardoso NP - 09/20/2024 10:27 AM ESTAssociated Problem(s): Asthma with COPD (chronic obstructive pulmonary disease) (CMS/HCC) Currently taking Trelegy Daily and Albuterol PRN No exacerbations recently Reports using rescue inhaler 3 times per month. Continue current regimen * Daniel Cardoso NP - 09/20/2024 10:00 AM EST Images from the original note were not [...] MODERATE RISK >11.0 HIGH RISK Resulting Agency [facility] DMII: Most recent labs: hemoglobin A1C 6.0% [...] feet frequently monitoring for open wounds , andalso recommend yearly eye exam. Pt should attempt [...] Neurological: Negative for dizziness, tremors, syncope, weakness, light- headedness and headaches. Psychiatric/Behavioral: Negative for decreased concentration and suicidal ideas. The patient is notnervous/anxious. Hematological: Does not bruise/bleed easily. Endocrine: Negative [...] List Items Addressed This Visit Other hyperlipidemia ([facility]) Currently taking Atorvastatin 40mg Denies any myalgias. Continue current regimen. Type 2 diabetes mellitus without complication, without long-term current use of insulin ([facility]) Currently taking Metformin 500mg Most recent labs: [...] Asthma with COPD (chronic obstructive pulmonary disease) ([facility]) Currently taking Trelegy Daily and Albuterol PRN No exacerbations recently Reports using rescue inhaler 3 times per month. Continue current regimen Primary hypertension ([facility]) - Primary Currently taking Losartan-hydrochlorothiazide 50/12.5mg Checks [...] (Augmentin) 875-125 MG tablet documented in this encounterSaint [facility] [id number] Instructions* Patient Instructions* Daniel Cardoso NP - 09/20/2024 10:00 AM EST Start and finish antibiotics as prescribed. Education: Check blood sugars daily, notify if <70 or >200. Take medications (pills or insulin) as directed. Monitor for s/s of hypoglycemia (sweaty, dizziness, nausea, vomiting, or shakiness). Watch for increase in thirst, urination, or appetite. Inspect feet frequently monitoring for open wounds , andalso recommend yearly eye exam. Pt should attempt to remain as physically active as chronic conditions allow, as well as trying to follow a diet low in carbohydrates, and simple sugars. Call if you need anything! documented in this [facility]10-29-2024 Telephone encounter Note* Telephone Encounter - Sabina Black MA - 09/11/2024 3:30 PM EDT Pt requesting a refill on her mobic, ANETTE:06/21/2024 NOV:09/20/2024 [facility] [id number] Miscellaneous Notes* Telephone Encounter - Sabina Black MA - 09/11/2024 3:30 PM EDT Pt requesting a refill on her mobic, ANETTE:06/21/2024 NOV:09/20/2024 [facility] this [facility] No data available for this section [facility] Diagnosis 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 loss- Primary Iron deficiency anemia secondary to blood loss (chronic) Current smoker Other hyperlipidemia (CMS/HCC) Moderate persistent asthma without complication ([facility]/HCC) Type 2 diabetes mellitus without complication, without long-term current use of insulin ([facility]) Screening mammogram, encounter for Recurrent major depressive disorder, in full remission ([facility]) Asthma with COPD (chronic obstructive pulmonary disease) ([facility])- Primary 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 [...] with COPD (chronic obstructive pulmonary disease) (CMS/HCC) documented in this encounter [facility]* Diagnosis 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 loss- Primary Iron deficiency anemia secondary to blood loss (chronic) Current smoker Other hyperlipidemia (CMS/HCC) Moderate persistent asthma without complication (CMS/HCC) Type 2 diabetes mellitus without complication, without long-term current use of insulin ([facility]/HCC) Screening mammogram, encounter for Recurrent major depressive disorder, in full remission (CMS/HCC) Asthma with COPD (chronic obstructive pulmonary disease) (CMS/HCC)- Primary 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 [...] disorder Type 2 diabetes mellitus without complications (CMS/HCC) documented in this encounter [facility]* Diagnosis 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 loss- Primary Iron deficiency anemia secondary to blood loss (chronic) Current smoker Other hyperlipidemia (CMS/HCC) Moderate persistent asthma without complication ([facility]/HCC) Type 2 diabetes mellitus without complication, without long-term current use of insulin ([facility]) Screening mammogram, encounter for Recurrent major depressive disorder, in full remission ([facility]/HCC) Asthma with COPD (chronic obstructive pulmonary disease) ([facility])- Primary 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) Type 2 diabetes mellitus without complication, without long-term current use of insulin ([facility]/HCC) Primary hypertension ([facility]/HCC) Unspecified essential hypertension Asthma with COPD (chronic obstructive pulmonary disease) ([facility])- Primary Primary hypertension ([facility]) Unspecified essential hypertension Type 2 diabetes mellitus without complication, without long-term current use of insulin ([facility]) Primary hypertension ([facility]/HCC)- Primary Unspecified essential hypertension Asthma with COPD (chronic obstructive pulmonary disease) ([facility]) 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) Other hyperlipidemia ([facility]/HCC) Type 2 diabetes mellitus without complication, without long-term current use of insulin ([facility]) Vitamin D deficiency Dermoid cyst of right ear Tobacco dependency Tobacco use disorder Hyperlipidemia, unspecified ([facility]) documented in this encounter [facility]* Diagnosis 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 loss- Primary Iron deficiency anemia secondary to blood loss (chronic) Current smoker Other hyperlipidemia (CMS/HCC) Moderate persistent asthma without complication ([facility]) Type 2 diabetes mellitus without complication, without long-term current use of insulin ([facility]) Screening mammogram, encounter for Recurrent major depressive disorder, in full remission ([facility]) Asthma with COPD (chronic obstructive pulmonary disease) ([facility])- Primary 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) Type 2 diabetes mellitus without complication, without long-term current use of insulin ([facility]/HCC) Primary hypertension ([facility]/HCC) Unspecified essential hypertension Asthma with COPD (chronic obstructive pulmonary disease) ([facility]/HCC)- Primary Primary hypertension ([facility]/HCC) Unspecified essential hypertension Type 2 diabetes mellitus without complication, without long-term current use of insulin ([facility]/HCC) Primary hypertension ([facility]/HCC)- Primary Unspecified essential hypertension Asthma with COPD (chronic obstructive pulmonary disease) (CMS/HCC) 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) Other hyperlipidemia (CMS/HCC) Type 2 diabetes mellitus without complication, without long-term current use of insulin ([facility]) Vitamin D deficiency Dermoid cyst of right ear Tobacco dependency Tobacco use disorder Other bursitis of elbow, left elbow documented in this encounter [facility] HealthcareEvaluation note* Diagnosis 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 loss- Primary Iron deficiency anemia secondary to blood loss (chronic) Current smoker Other hyperlipidemia (CMS/HCC) Moderate persistent asthma without complication (CMS/HCC) Type 2 diabetes mellitus without complication, without long-term current use of insulin ([facility]) Screening mammogram, encounter for Recurrent major depressive disorder, in full remission ([facility]) Asthma with COPD (chronic obstructive pulmonary disease) ([facility])- Primary 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) Type 2 diabetes mellitus without complication, without long-term current use of insulin ([facility]) Primary hypertension ([facility]) Unspecified essential hypertension Asthma with COPD (chronic obstructive pulmonary disease) ([facility]/HCC)- Primary Primary hypertension ([facility]/HCC) Unspecified essential hypertension Type 2 diabetes mellitus without complication, without long-term current use of insulin ([facility]/HCC) Primary hypertension ([facility]/HCC)- Primary Unspecified essential hypertension Asthma with COPD (chronic obstructive pulmonary disease) ([facility]/HCC) 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) Other hyperlipidemia (CMS/HCC) Type 2 diabetes mellitus without complication, without long-term current use of insulin ([facility]) Vitamin D deficiency Dermoid cyst of right ear Tobacco dependency Tobacco use disorder Primary hypertension ([facility]/HCC)- Primary Unspecified essential hypertension Type 2 diabetes mellitus without complication, without long-term current use of insulin (CMS/HCC) Other hyperlipidemia (CMS/HCC) Asthma with COPD (chronic obstructive pulmonary disease) ([facility]) Non-recurrent acute serous otitis media of left ear documented in this encounter [facility] HealthcareEvaluation note* Diagnosis Other bursitis of elbow, left elbow documented in this encounter [facility] HealthcareEvaluation note* Diagnosis 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 loss- Primary Iron deficiency anemia secondary to blood loss (chronic) Current smoker Other hyperlipidemia (CMS/HCC) Moderate persistent asthma without complication ([facility]/HCC) Type 2 diabetes mellitus without complication, without long-term current use of insulin ([facility]) Screening mammogram, encounter for Recurrent major depressive disorder, in full remission ([facility]) Asthma with COPD (chronic obstructive pulmonary disease) ([facility])- Primary 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) Type 2 diabetes mellitus without complication, without long-term current use of insulin ([facility]/HCC) Primary hypertension ([facility]) Unspecified essential hypertension Asthma with COPD (chronic obstructive pulmonary disease) ([facility])- Primary Primary hypertension ([facility]/HCC) Unspecified essential hypertension Type 2 diabetes mellitus without complication, without long-term current use of insulin ([facility]) Primary hypertension ([facility])- Primary Unspecified essential hypertension Asthma with COPD (chronic obstructive pulmonary disease) ([facility]) 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) Other hyperlipidemia ([facility]) Type 2 diabetes mellitus without complication, without long-term current use of insulin ([facility]) Vitamin D deficiency Dermoid cyst of right ear Tobacco dependency Tobacco use disorder Primary hypertension ([facility])- Primary Unspecified essential hypertension Type 2 diabetes mellitus without complication, without long-term current use of insulin ([facility]) Other hyperlipidemia ([facility]) Asthma [facility] COPD (chronic obstructive pulmonary disease) ([facility]) Non-recurrent acute serous otitis media of left ear Gastro-esophageal reflux disease without esophagitis documented in this encounter [facility] HealthcareEvaluation note* Diagnosis 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 loss- Primary Iron deficiency anemia secondary to blood loss (chronic) Current smoker Other hyperlipidemia ([facility]) Moderate persistent asthma without complication ([facility]) Type 2 diabetes mellitus without complication, without long-term current use of insulin ([facility]) Screening mammogram, encounter for Recurrent major depressive disorder, in full remission ([facility]) Asthma with COPD (chronic obstructive pulmonary disease) ([facility])- Primary 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) Type 2 diabetes mellitus without complication, without long-term current use of insulin ([facility]) Primary hypertension ([facility]) Unspecified essential hypertension Asthma with COPD (chronic obstructive pulmonary disease) ([facility])- Primary Primary hypertension ([facility]) Unspecified essential hypertension Type 2 diabetes mellitus without complication, without long-term current use of insulin ([facility]/HCC) Primary hypertension ([facility]/HCC)- Primary Unspecified essential hypertension Asthma with COPD (chronic obstructive pulmonary disease) ([facility]) 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) Other hyperlipidemia ([facility]/HCC) Type 2 diabetes mellitus without complication, without long-term current use of insulin ([facility]) Vitamin D deficiency Dermoid cyst of right ear Tobacco dependency Tobacco use disorder Primary hypertension ([facility]/HCC)- Primary Unspecified essential hypertension Type 2 diabetes mellitus without complication, without long-term current use of insulin ([facility]/HCC) Other hyperlipidemia ([facility]/HCC) Asthma with COPD (chronic obstructive pulmonary disease) ([facility]) Non-recurrent acute serous otitis media of left ear Depression, unspecified ([facility]) documented in this encounter [facility] HealthcareEvaluation note* [...] Diagnosis Type 2 diabetes mellitus without complications ([facility]) Hyperlipidemia, unspecified ([facility]/HCC) documented in this encounter [facility] HealthcareEvaluation note* Diagnosis Hyperlipidemia, unspecified ([facility]/HCC) Other bursitis of elbow, left elbow Depression, unspecified ([facility]) Type 2 diabetes mellitus without complications ([facility]) documented in this encounter [facility] HealthcareEvaluation note* Diagnosis 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 loss- Primary Iron deficiency anemia secondary to blood loss (chronic) Current smoker Other hyperlipidemia ([facility]/HCC) Moderate persistent asthma without complication ([facility]) Type 2 diabetes mellitus without complication, without long-term current use of insulin ([facility]) Screening mammogram, encounter for Recurrent major depressive disorder, in full remission ([facility]) Asthma with COPD (chronic obstructive pulmonary disease) ([facility])- Primary 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) Type 2 diabetes mellitus without complication, without long-term current use of insulin ([facility]/HCC) Primary hypertension ([facility]/HCC) Unspecified essential hypertension Asthma with COPD (chronic obstructive pulmonary disease) ([facility])- Primary Primary hypertension ([facility]/HCC) Unspecified essential hypertension Type 2 diabetes mellitus without complication, without long-term current use of insulin (CMS/HCC) Primary hypertension (CMS/HCC)- Primary Unspecified essential hypertension Asthma with COPD (chronic obstructive pulmonary disease) (CMS/HCC) 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) Other hyperlipidemia (CMS/HCC) Type 2 diabetes mellitus without complication, without long-term current use of insulin ([facility]/HCC) Vitamin D deficiency Dermoid cyst of right ear Tobacco dependency Tobacco use disorder Primary hypertension (CMS/HCC)- Primary Unspecified essential hypertension Type 2 diabetes mellitus without complication, without long-term current use of insulin (CMS/HCC) Other hyperlipidemia (CMS/HCC) Asthma with COPD (chronic obstructive pulmonary disease) ([facility]) Non-recurrent acute serous otitis media of left ear 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) documented in this encounter [facility] HealthcareEvaluation note* Diagnosis 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 loss- Primary Iron deficiency anemia secondary to blood loss (chronic) Current smoker Other hyperlipidemia (CMS/HCC) Moderate persistent asthma without complication ([facility]) Type 2 diabetes mellitus without complication, without long-term current use of insulin ([facility]) Screening mammogram, encounter for Recurrent major depressive disorder, in full remission ([facility]) Asthma with COPD (chronic obstructive pulmonary disease) ([facility]/HCC)- Primary 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) Type 2 diabetes mellitus without complication, without long-term current use of insulin ([facility]/HCC) Primary hypertension (CMS/HCC) Unspecified essential hypertension Asthma with COPD (chronic obstructive pulmonary disease) ([facility]/HCC)- Primary Primary hypertension ([facility]/HCC) Unspecified essential hypertension Type 2 diabetes mellitus without complication, without long-term current use of insulin ([facility]/HCC) Primary hypertension ([facility]/HCC)- Primary Unspecified essential hypertension Asthma with COPD (chronic obstructive pulmonary disease) ([facility]/HCC) 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) Other hyperlipidemia (CMS/HCC) Type 2 diabetes mellitus without complication, without long-term current use of insulin ([facility]/HCC) Vitamin D deficiency Dermoid cyst of right ear Tobacco dependency Tobacco use disorder Primary hypertension (CMS/HCC)- Primary Unspecified essential hypertension Type 2 diabetes mellitus without complication, without long-term current use of insulin ([facility]) Other hyperlipidemia ([facility]) Asthma with COPD (chronic obstructive pulmonary disease) ([facility]) Non-recurrent acute serous otitis media of left ear Asthma with COPD (chronic obstructive pulmonary disease) ([facility]) documented in this encounter [facility] HealthcareEvaluation note* Diagnosis 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 loss- Primary Iron deficiency anemia secondary to blood loss (chronic) Current smoker Other hyperlipidemia ([facility]) Moderate persistent asthma without complication ([facility]) Type 2 diabetes mellitus without complication, without long-term current use of insulin ([facility]) Screening mammogram, encounter for Recurrent major depressive disorder, in full remission ([facility]) Asthma with COPD (chronic obstructive pulmonary disease) ([facility])- Primary 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) Type 2 diabetes mellitus without complication, without long-term current use of insulin ([facility]) Primary hypertension ([facility]) Unspecified essential hypertension Asthma with COPD (chronic obstructive pulmonary disease) ([facility])- Primary Primary hypertension ([facility]) Unspecified essential hypertension Type 2 diabetes mellitus without complication, without long-term current use of insulin ([facility]) Primary hypertension ([facility])- Primary Unspecified essential hypertension Asthma with COPD (chronic obstructive pulmonary disease) ([facility]) 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) Other hyperlipidemia ([facility]) Type 2 diabetes mellitus without complication, without long-term current use of insulin ([facility]) Vitamin D deficiency Dermoid cyst of right ear Tobacco dependency Tobacco use disorder Primary hypertension ([facility])- Primary Unspecified essential hypertension Type 2 diabetes mellitus without complication, without long-term current use of insulin ([facility]) Other hyperlipidemia ([facility]) Asthma with COPD (chronic obstructive pulmonary disease) ([facility]) Non-recurrent acute serous otitis media of left ear 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) documented in this encounter [facility] HealthcareEvaluation note* Diagnosis Acute hypoxic respiratory failure ([facility] Primary Chronic obstructive pulmonary disease, unspecified COPD type ([facility]) Influenza A Influenza with other respiratory manifestations Aspiration pneumonia, unspecified aspiration pneumonia type, unspecified laterality, unspecified part of lung ([facility]) Depression, unspecified depression type Cigarette smoker Tobacco use disorder Type 2 diabetes mellitus without complication, without long-term current use of insulin ([facility]) Anxiety Anxiety state, unspecified [facility]* Diagnosis Acute hypoxic respiratory failure ([facility])- Primary Chronic obstructive pulmonary disease, unspecified COPD type ([facility]) Influenza A Influenza with other respiratory manifestations Other abnormalities of gait and mobility [facility] this [facility]* Diagnosis Acute hypoxic respiratory failure ([facility] Primary Aspiration pneumonia, unspecified aspiration pneumonia type, unspecified laterality, unspecified part of lung ([facility]) Chronic obstructive pulmonary disease, unspecified COPD type ([facility]) Influenza A Influenza with other respiratory manifestations Type 2 diabetes mellitus without complication, without long-term current use of insulin ([facility]) Other abnormalities of gait and mobility Anxiety Anxiety state, unspecified [facility]* Diagnosis Chronic obstructive pulmonary disease, unspecified COPD type ([facility])- Primary Influenza A Influenza with other respiratory manifestations Other abnormalities of gait and mobility Anxiety Anxiety state, unspecified Cigarette smoker Tobacco use disorder [facility] this [facility]* Diagnosis 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 loss- Primary Iron deficiency anemia secondary to blood loss (chronic) Current smoker Other hyperlipidemia ([facility]) Moderate persistent asthma without complication ([facility]) Type 2 diabetes mellitus without complication, without long-term current use of insulin ([facility]) Screening mammogram, encounter for Recurrent major depressive disorder, in full remission ([facility]) Asthma with COPD (chronic obstructive pulmonary disease) ([facility])- Primary 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) Type 2 diabetes mellitus without complication, without long-term current use of insulin ([facility]) Primary hypertension ([facility]) Unspecified essential hypertension Asthma with COPD (chronic obstructive pulmonary disease) ([facility])- Primary Primary hypertension ([facility]) Unspecified essential hypertension Type 2 diabetes mellitus without complication, without long-term current use of insulin ([facility]) Primary hypertension ([facility])- Primary Unspecified essential hypertension Asthma with COPD (chronic obstructive pulmonary disease) ([facility]) 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) Other hyperlipidemia ([facility]/HCC) Type 2 diabetes mellitus without complication, without long-term current use of insulin ([facility]/HCC) Vitamin D deficiency Dermoid cyst of right ear Tobacco dependency Tobacco use disorder Primary hypertension ([facility]/HCC)- Primary Unspecified essential hypertension Type 2 diabetes mellitus without complication, without long-term current use of insulin ([facility]/HCC) Other hyperlipidemia ([facility]/HCC) Asthma with COPD (chronic obstructive pulmonary disease) ([facility]/HCC) Non-recurrent acute serous otitis media of left ear Influenza A- Primary Influenza with other respiratory manifestations Chronic obstructive pulmonary disease, unspecified COPD type ([facility]/HCC) Acute hypoxic respiratory failure ([facility]/HCC) Type 2 diabetes mellitus without complication, without long-term current use of insulin ([facility]/HCC) Primary hypertension ([facility]/HCC) Unspecified essential hypertension 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 ([facility]) documented in this encounter [facility] HealthcareHospital Discharge instructions No data available for this section [facility]ructionsNot on filedocumented in this encounter [facility] SystemInstructionsNot on filedocumented in this encounter [facility] note No data available for this section [facility] (n[facility]ative[facility] Consultation (Routine) - Pending Review Specialty Diagnoses / Procedures Referred By Marilia underwood Referred To Contact Gastroenterology Diagnoses 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 loss Procedures DC OFFICE/OUTPATIENT NEW HIGH MDM 60 MINUTES Daniel Cardoso NP [address] [place] [id number] Referral ID Status Reason Start Date Expiration Date Visits Requested Visits Authorized [id number] Pending Review Specialty Services Required 07/07/2024 01/03/2025 1 1 [facility] Healthcare Summary Purpose Family History Relationship Condition Age at Onset Recorded Date/T hiram father Heart disease Unknown brother Diabetes mellitus Unknown Heart disease Unknown Advance Directives Advance Directive Response Recorded Date/ Time Advance Directives No June 25, 2024 7:07am Chief Complaint and Reason for Visit Chief Complaint Admit Date Influenza A +, Exacerbation COPD December 09, 2024 9:05pm Influenza A +, Exacerbation COPD December 10, 2024 10:20am Influenza A +, Exacerbation COPD December 10, 2024 4:25pm Influenza A +, Exacerbation COPD December 13, 2024 12:54pm Reason for Visit Admit Date Acute hypoxic respiratory failure Novuar 2024 9:05pm Aspiration pneumonia December 09, 2024 9:05pm COPD exacerbation December 09, 2024 9 :05pm Depression December 09, 2024 9 :05pm Diabetes type 2 December 09, 2024 9 :05pm Dyslipidemia December 09, 2024 9 :05pm Elevated troponin December 09, 2024 9 :05pm HTN (hypertension) December 09, 2024 9 :05pm Hypotension December 09, 2024 9 :05pm Impaired mobility and activities of [place] living December 09, 2024 9:05pm Influenza A December 09, 2024 9 :05pm Tobacco abuse December 09, 2024 9 :05pm Chief Complaint Admit Date Influenza A +, Exacerbation COPD December 09, 2024 9:05pm Influenza A +, Exacerbation COPD December 10, 2024 10:20am Influenza A +, Exacerbation COPD December 10, 2024 4:25pm Influenza A +, Exacerbation COPD December 13, 2024 12:54pm [facility] 12/09January 04, 2025 8:55am Reason for Visit Admit Date Acute hypoxic respiratory failure Novuar 2024 9:05pm COPD exacerbation December 09, 2024 9 :05pm Depression December 09, 2024 9 :05pm Diabetes type 2 December 09, 2024 9 :05pm Dyslipidemia December 09, 2024 9 :05pm Elevated troponin December 09, 2024 9 :05pm HTN (hypertension) December 09, 2024 9 :05pm Impaired mobility and activities of [place] living December 09, 2024 9:05pm Influenza A December 09, 2024 9 :05pm Tobacco abuse December 09, 2024 9 :05pm Aspiration pneumonia December 09, 2024 9:05pm Hypotension December 09, 2024 9 :05pm Additional Source Comments INFORMATION SOURCE (unrecogn ized section and content) DATE CREATED AUTHOR 10/22/2018 [facility] DATE CREATED AUTHOR AUTHOR'S ORGANIZ ATION 01/09/2023 [facility] DATE CREATED AUTHOR AUTHOR'S ORGANIZ ATION 12/17/2023 [facility] DATE CREATED AUTHOR AUTHOR'S ORGANIZ ATION 09/22/2024 [facility] DATE CREATED AUTHOR AUTHOR'S ORGANIZ ATION 12/17/2024 [facility] DATE CREATED AUTHOR AUTHOR'S ORGANIZ ATION 01/09/2025 [facility] Patient Care team informatio n (unrecognized section and content) Bulb Inspector Relationship Specialty Start Date End Date Shaikh Sánchez MD [address] [place] [phone] PCP - Linda MORALES 11/14/23 Shaikh Sánchez MD [address] [place] [phone] PCP - General Internal Medicine 01/16/24 Arielle [place] TEACHING FELLOW [address] [place], [place] [id number] Nurse Practitioner Internal Medicine 01/16/24 Kirstin Carreon LPN Licensed Practical Nurse Family Medicine 07/27/24 Bulb Inspector Relationship Specialty Start Date End Date Shaikh Sánchez MD [address] [place] [phone] PCP - Linda MORALES 11/14/23 Ian Rader MD [address] [place] [phone] PCP - General Family Medicine 09/11/24 Arielle [place] NP [address] [place] [address] Nurse Practitioner Internal Medicine 01/16/24 Kirstin Carreon LPN Licensed Practical Nurse Family Medicine 07/27/24 Daniel Cardoso, GREG [address] [place] [address] Nurse Practitioner Family Medicine 09/11/24 Bulb Inspector Relationship Specialty Start Date End Date Shaikh Sánchez MD [address] [place] [address] PCP - Linda MORALES 11/14/23 Ian Rader MD [address] [place] [phone] PCP - General Family Medicine 09/11/24 Arielle [place] NP [address] [facility] [address] [place] [address] Nurse Practitioner Internal Medicine 01/16/24 Kirstin Carreon LPN Licensed Practical Nurse Family Medicine 07/27/24 Daniel Cardoso, GREG [address] [place] [address] Nurse Practitioner Family Medicine 09/11/24 Bulb Inspector Relationship Specialty Start Date End Date Shaikh Sánchez MD [address] [place] [phone] PCP - Linda MORALES 11/14/23 Ian Rader MD [address] [place] [phone] PCP - General Family Medicine 09/11/24 Arielle [place] NP [address] [place] [address] Nurse Practitioner Internal Medicine 01/16/24 Kirstin Carreon LPN Licensed Practical Nurse Family Medicine 07/27/24 Daniel Cardoso, GREG [address] [place] [address] Nurse Practitioner Family Medicine 09/11/24 Bulb Inspector Relationship Specialty Start Date End Date Shaikh Sánchez MD [address] [place] [phone] PCP - Linda MORALES 11/14/23 Ian Rader MD [address] [place] [address] PCP - General Family Medicine 09/11/24 Arielle [place] NP [address] [place] [address] Nurse Practitioner Internal Medicine 01/16/24 Kirstin Carreon LPN Licensed Practical Nurse Family Medicine 07/27/24 Daniel Cardoso, GREG [address] [place] [address] Nurse Practitioner Family Medicine 09/11/24 Bulb Inspector Relationship Specialty Start Date End Date Shaikh Sánchez MD [address] [place] [phone] PCP Shayy Mckeon MA 11/14/23 Shaikh Sánchez MD [address] [place] [address] PCP - General Internal Medicine 01/16/24 Arielle [place], GREG [address] [place] [address] Nurse Practitioner Internal Medicine 01/16/24 Gustavo Romero LPN Licensed Practical Nurse Family Medicine 07/04/24 Bulb Inspector Relationship Specialty Start Date End Date Shaikh Sánchez MD [address] [place] [address] PCP - Linda MORALES 11/14/23 Ian Rader MD [address] [place] [address] PCP - General Family Medicine 09/11/24 Arielle [place], GREG [address] [place] [address] Nurse Practitioner Internal Medicine 01/16/24 Daniel Cardoso NP [address] [place] [address] Nurse Practitioner Family Medicine 09/11/24 Arturo Chanel MA Family Medicine 09/24/24 Bulb Inspector Relationship Specialty Start Date End Date Shaikh Sánchez MD [address] [place] [address] PCP Shayy Mckeon MA 11/14/23 Shaikh Sánchez MD [address] [place] [phone] PCP - General Internal Medicine 01/16/24 Arielle [place] TEACHING FELLOW [address] [place] [address] Nurse Practitioner Internal Medicine 01/16/24 Gustavo Romero LPN Licensed Practical Nurse Family Medicine 07/04/24 Bulb Inspector Relationship Specialty Start Date End Date Shaikh Sánchez MD [address] [place] [address] PCP - Linda MORALES 11/14/23 Shaikh Sánchez MD [address] [place] [phone] PCP - General Internal Medicine 01/16/24 Arielle [place] NP [address] [place] [address] Nurse Practitioner Internal Medicine 01/16/24 Gustavo Romero LPN Licensed Practical Nurse Family Medicine 07/04/24 Bulb Inspector Relationship Specialty Start Date End Date Shaikh Sánchez MD [address] [place] [address] PCP - Linda MORALES 11/14/23 Shaikh Sánchez MD [address] [place] [phone] PCP - General Internal Medicine 01/16/24 Arielle [place] NP [address] [place] [address] Nurse Practitioner Internal Medicine 01/16/24 Gustavo Romero LPN Licensed Practical Nurse Family Medicine 07/04/24 Bulb Inspector Relationship Specialty Start Date End Date Shaikh Sánchez MD [address] [place] [address] PCP - Linda MORALES 11/14/23 Shaikh Sánchez MD [address] [place] [address] PCP - General Internal Medicine 01/16/24 Arielle [place] NP [address] [place] [address] Nurse Practitioner Internal Medicine 01/16/24 Kirstin Carreon LPN Licensed Practical Nurse Family Medicine 07/27/24 Bulb Inspector Relationship Specialty Start Date End Date Shaikh Sánchez MD [address] [place] [address] PCP - Linda MORALES 11/14/23 Ian Rader MD [address] [place] [address] PCP - General Family Medicine 09/11/24 Arielle [place] NP [address] [place] [address] Nurse Practitioner Internal Medicine 01/16/24 Daniel Cardoso NP [address] [place] [address] Nurse Practitioner Family Medicine 09/11/24 Arturo Chanel MA Family Medicine 09/24/24 Bulb Inspector Relationship Specialty Start Date End Date Shaikh Sánchez MD [address] [place] [address] PCP - Linda DE 11/14/23 Ian Rader MD [address] [place] [phone] PCP - General Family Medicine 09/11/24 Arielle [place] TEACHING FELLOW [address] [place] [address] Nurse Practitioner Internal Medicine 01/16/24 Daniel Cardoso NP [address] [place] [address] Nurse Practitioner Family Medicine 09/11/24 Arturo Chanel MA Family Medicine 09/24/24 Bulb Inspector Relationship Specialty Start Date End Date Shaikh Sánchez MD [address] [place] [address] PCP - Linda DE 11/14/23 Ian Rader MD [address] [place] [address] PCP - General Family Medicine 09/11/24 Arielle [place] NP [address] [place] [address] Nurse Practitioner Internal Medicine 01/16/24 Daniel Cardoso NP [facility] [place] [address] Nurse Practitioner Family Medicine 09/11/24 Arturo Chanel MA Family Medicine 09/24/24 Team Status: Active Member Role Status Dates Daniel Cardoso NP-C Primary Care Provider Ac tive Team Status: Inactive Member Role Status Dates Daniel Cardoso NP-C Primary Care Provider Ac tive Start: December 09, 2024 End: December 14, 2024 Soco Beasley MD Admit Provider Active Start: anuary 2024 End: December 14, 2024 Daniel Garza MD Attending Provider Active Start : December 09, 2024 End: December 14, 2024 Cecilia Ruiz MD Other Provider Active Start: J anuary 2024 End: December 14, 2024 Suzette Ng MD Other Provider Active Start: Jamey olivas 2024 End: December 14, 2024 Ryan Arshad MD Other Provider Active Start: anuary 2024 End: December 14, 2024 Ilana Mendoza APRN Other Provider Active St art: December 09, 2024 End: December 14, 2024 Hubert Mcguire Jr, Other Provider Active S tart: December 09, 2024 End: December 14, 2024 Dave Bazan MD Other Provider Active Start: December 09, 2024 End: December 14, 2024 Team Status: Active Member Role Status Dates Daniel Cardoso NP-C Primary Care Provider Ac tive Start: December 10, 2024 Soco Beasley MD Admit Provider Active Start: Heath anuary 2024 Cecilia Ruiz MD Other Provider Active Start: Heath anuary 2024 Daniel Garza MD Other Provider Active Start: Jamey olivas 2024 Krissy Cortez MD Attending Provider Active Sta rt: December 10, 2024 Team Status: Active Member Role Status Dates Daniel Cardoso NP-C Primary Care Provider Active Start: November Soco Beasley MD Admit Provider Active Start: J anuary 2024 Cecilia Ruiz MD Attending Provider, Other Provider Active Start: December 10, 2024 Dianne Rodrigues RN Other Provider Active Star t: December 10, 2024 Prakash Sena MD Other Provider Active Start: J anuary 2024 Gildardo Pastor MD Other Provider Active Start: December 10, 2024 Krissy Cortez MD Other Provider Active Start: December 10, 2024 Daniel Garza MD Other Provider Active Start: 2024 Team Status: Active Member Role Status Dates Daniel Cardoso NP-C Primary Care Provider Active Start: November Soco Beasley MD Admit Provider Active Start: J anuary 2024 Daniel Garza MD Other Provider Active Start: ary 2024 Cecilia Ruiz MD Other Provider Active Start: J anuary 2024 Suzette Ng MD Other Provider Active Start: 2024 Ryan Arshad MD Other Provider Active Start: J anuary 2024 Ilana Mendoza APRN Other Provider Active St art: December 13, 2024 Hubert Mcguire Jr, Other Provider Active S tart: December 13, 2024 Dave Bazan MD Attending Pr ovider, Other Provider Active Start: December 13, 2024 Bulb Inspector Relationship Specialty Start Date End Date Gianna Isabel MD PCP - General Family Medicine 02/07/17 Bulb Inspector Relationship Specialty Start Date End Date Gianna Isabel MD PCP - General Family Medicine 02/07/17 Bulb Inspector Relationship Specialty Start Date End Date Gianna Isabel MD PCP - General Family Medicine 02/07/17 Team Status: Inactive Member Role Status Dates Daniel Cardoso NP-C Primary Care Provider Ac tive Start: December 09, 2024 End: December 14, 2024 Soco Beasley MD Admit Provider Active Start: anuary 2024 End: December 14, 2024 Daniel Garza MD Attending Provider Active Start : December 09, 2024 End: December 14, 2024 Suzette Ng MD Other Provider Active Start: Jamey olivas 2024 End: December 14, 2024 Ryan Arshad MD Other Provider Active Start: J anuary 2024 End: December 14, 2024 Ilana Mendoza APRN Other Provider Active St art: December 09, 2024 End: December 14, 2024 Hubert Mcguire Jr, DO Other Provider Active S tart: December 09, 2024 End: December 14, 2024 Dave Bazan MD Other Provider Active Start: December 09, 2024 End: December 14, 2024 Cecilia Ruiz MD Other Provider Active Start: anuary 2024 End: December 14, 2024 Team Status: Active Member Role Status Dates Daniel Cardoso TEACHING FELLOW-C Primary Care Provider Ac tive Start: December 10, 2024 Taco Flores DO Attending Provider Active Sta rt: December 10, 2024 Team Status: Active Member Role Status Dates Daniel Cardoso TEACHING FELLOW-C Primary Care Provider Active Start: November Soco Beasley MD Admit Provider Active Start: anuary 2024 Cecilia Ruiz MD Attending Provider, Other Provider Active Start: December 10, 2024 Dianne Rodrigues RN Other Provider Active Star t: December 10, 2024 Prakash Sena MD Other Provider Active Start: J anuary 2024 Gildardo Pastor MD Other Provider Active Start: December 10, 2024 Krissy Cortez MD Other Provider Active Start: December 10, 2024 Daniel Garza MD Other Provider Active Start: Jamey olivas 2024 Roge Hadley MD Active Start: December 10, 2024 Team Status: Inactive Member Role Status Dates Daniel Cardoso NP-C Primary Care Provider Ac tive Start: January 04, 2025 End: January 04, 2025 Krissy Cortez MD Attending Provider Active Sta rt: January 04, 2025 End: January 04, 2025 Bulb Inspector Relationship Specialty Start Date End Date Ian Rader MD [address] [place] [phone] PCP - General Family Medicine 09/11/24 Arielle [place] TEACHING FELLOW Nurse Practitioner Internal Medicine 01/16/24 Daniel Cardoso NP [address] [place] [address] Nurse Practitioner Family Medicine 09/11/24 Arturo Chanel MA Family Medicine 09/24/24 Bulb Inspector Relationship Specialty Start Date End Date Ian Rader MD [address] [place] [address] PCP - General Family Medicine 09/11/24 Arielle [place] TEACHING FELLOW Nurse Practitioner Internal Medicine 01/16/24 Daniel Cardoso NP [address] [place] [address] Nurse Practitioner Family Medicine 09/11/24 Arturo Chanel [...] Reason Onset Date Comments Med Refill 12/06/2024 Reason Comments Follow-up Hospital f/u Sore Throat Earache Right ear FOR RECORDS PERTAINING TO PATIENTS WHO ARE [...] BE BASED ON THE PRIMARY CLINICAL RECORDS. [employer] provides no warranty or guarantee of the accuracy or completeness of information in this document.
[2025-01-14 19:35] VITALS: BP 137/86; PULSE 82; TEMP 36.9; O2SAT 97; BMI 25.3
[2025-01-14 20:19] VITALS: BP 135/85; PULSE 79; O2SAT 93
--- NOTE | 2025-01-14 20:26 | ED_ITS ---
HPI HPI - Head Injury General Chief complaint: Head Injury Stated complaint: FALL,HIT HEAD Time Seen by Provider: 01/14/25 19:38 Mode of arrival: Wheelchair History of Present Illness HPI Narrative: This 69-year-old female is brought to the emergency department by her nephew after she fell at home. The patient got twisted up with her oxygen tubing. She states she fell over her walker. She struck the vertex of her scalp on the table. She denies any loss of consciousness. She has no blurred vision slurred speech or confusion. She is not on any blood thinners. She denies any neck pain. She has no focal neurologic weakness or numbness. She has an approximately 1.5 cm laceration on the vertex of her scalp. Related Data Home Medications ?Medication ?Instructions ?Recorded ?Confirmed albuterol sulfate 90 mcg/actuation 2 puff inhalation Q4H PRN 12/09/24 01/14/25 aerosol inhaler shortness of breath or wheezing atorvastatin 40 mg tablet 40 mg PO DAILY 12/09/24 01/14/25 fluticasone fur. 200 mcg-umeclid 1 inh inhalation DAILY 12/09/24 01/14/25 62.5 mcg-vilant 25 mcg inhalat.powder (Trelegy Ellipta) losartan 50 mg tablet 50 mg PO DAILY 12/09/24 01/14/25 meloxicam 7.5 mg tablet 7.5 mg PO DAILY 12/09/24 01/14/25 metformin 500 mg tablet 500 mg PO DAILY 12/09/24 01/14/25 omeprazole 20 mg capsule,delayed 20 mg PO DAILY 12/09/24 01/14/25 release sertraline 50 mg tablet 50 mg PO DAILY 12/09/24 01/14/25 ferrous sulfate 325 mg (65 mg 325 mg PO QDAY 01/14/25 01/14/25 iron) tablet,delayed release lorazepam 0.5 mg tablet 0.5 mg PO .qhs 01/14/25 01/14/25 Allergies Allergy/AdvReac Type Severity Reaction Status Date / Time No Known Drug Allergies Allergy Verified 01/14/25 19:34 Opioid HPI Opioid Management Most Recent Pain and Opioid Data: Ur Phencyclidine Scrn Negative (NEGATIVE) 12/09/24 16:18 11/15 05/08 Review of Systems ROS Status of ROS 10 or more systems reviewed and unremark able except as noted in history and below PFSH PFSH Social History Little interest or pleasure in doing things: not at all Feeling down, depressed, or hopeless: not at all Exam Narrative Exam Narrative: Vital signs and Nursing Notes reviewed: Patient is afebrile with a normal pulse, normal blood pressure, pulse ox is 93% which is likely patient's baseline with a history of COPD General: Awake, alert, oriented, no acute distress, lying comfortably on the stretcher, thin adult female, GCS 15 HEENT: Normocephalic, 1.5 cm laceration to the vertex of the scalp, no active bleeding or step-off noted Neck: Supple, no midline bony vertebral tenderness or step-off Chest: Lungs are diffusely diminished, no respiratory distress noted CVS: Regular rate and rhythm S1-S2, no murmurs rubs or gallops, pulses are brisk and equal bilaterally ABD: Soft, nondistended, nontender, no rebound guarding or rigidity, bowel sounds are normal, no pulsatile masses appreciated Extremities: Moving all extremities, no lower extremity tenderness or swelling noted Skin: Normal in appearance without rash,pallor, petechiae or purpura Neuro: No focal deficits Constitutional Vital Signs, click to edit/add: Last Vital Signs Temp 98.5 F 01/14/25 19:35 Pulse 79 01/14/25 21:37 Resp 98 H 01/14/25 21:37 BP 162/92 H 01/14/25 21:37 Pulse Ox 98 01/14/25 21:37 O2 Del Method Nasal Cannula 01/14/25 19:35 O2 Flow Rate 3 01/14/25 21:37 Course Vital Signs Vital signs: Vital Signs Temperature 98.5 F 01/14/25 19:35 Pulse Rate 82 01/14/25 19:35 Respiratory Rate 14 01/14/25 19:35 Blood Pressure 137/86 01/14/25 19:35 Pulse Oximetry 97 01/14/25 19:35 Oxygen Delivery Method Nasal Cannula 01/14/25 19:35 Oxygen Delivery Flow Rate 3 01/14/25 19:35 Temperature 98.5 F 01/14/25 19:35 Pulse Rate 79 01/14/25 21:37 Respiratory Rate 98 H 01/14/25 21:37 Blood Pressure 162/92 H 01/14/25 21:37 Pulse Oximetry 98 01/14/25 21:37 Oxygen Delivery Method Nasal Cannula 01/14/25 19:35 Oxygen Delivery Flow Rate 3 01/14/25 21:37 MDM - Head Injury MDM Narrative Medical decision making narrative: This 69-year-old female presents after she fell at home after getting tangled up in her oxygen tubing while trying to get to her walker and struck her head on the table. She is not on blood thinners. She denies any loss of consciousness. She denies any dizziness or syncope causing her fall. Her neuroexam is normal. She is approxione 0.5 cm laceration on the vertex of her scalp. She denied any neck tenderness. She received a CT scan of her head and cervical spine which were reviewed by radiology with no acute findings. Her laceration was cleaned and closed with 3 luis. She tolerated this well and there was no additional bleeding. Head injury instructions were given to the patient and her nephew who brought her to the emergency department. She was discharged home in stable condition. I explained to her that the luis can be removed in 5 to 7 days. Discharge Plan Discharge Chief Complaint: Head Injury Clinical Impression: Fall from standing, Laceration of scalp, Closed head injury Patient Disposition: Home, Self-Care Time of Disposition Decision: 22:41 Condition: Good Prescriptions / Home Meds: No Action albuterol sulfate 90 mcg/actuation HFA aerosol inhaler 2 puff INHALATION Q4H PRN (Reason: shortness of breath or wheezing) atorvastatin 40 mg tablet 40 mg PO DAILY Trelegy Ellipta 200-62.5-25 mcg blister with device 1 inh INHALATION DAILY losartan 50 mg tablet 50 mg PO DAILY meloxicam 7.5 mg tablet 7.5 mg PO DAILY metformin 500 mg tablet 500 mg PO DAILY omeprazole 20 mg capsule,delayed release(DR/EC) 20 mg PO DAILY sertraline 50 mg tablet 50 mg PO DAILY ferrous sulfate 325 mg (65 mg iron) tablet,delayed release (DR/EC) 325 mg PO QDAY lorazepam 0.5 mg tablet 0.5 mg PO .[facility] Print Language: Telugu Instructions: Fall Prevention for Older Adults (ED), Head Injury (ED), Staple Care (ED) Additional Instructions: Carlton can be removed in 5 to 7 days. You may shower but do not brush your hair vigorously in the area where the luis are in your scalp. Return to the emergency department for severe headache, nausea vomiting, weakness numbness, neck pain or any focal neurologic deficits. Referrals: DANIEL GILLETTE [Primary Care Provider] - 1 week Discharge Date/Time: 01/14/25 22:53 Procedures ED Procedure Instructions Procedures Procedures: Procedure note: Scalp laceration repair; the scalp was cleaned with normal saline and Hibiclens and let gel was applied topically. When anesthesia was obtained and after the patient CT scan 3 luis were placed into the laceration with good wound approximation
--- NOTE | 2025-01-14 20:27 | PC.NURSE ---
this patient complains of a fall tonight 19:00, this patient up walking tripped over her oxygen tubing, hitting her head, denies any loc after this fall small laceration. this patient was clean up and no visible bleeding. this patient voices no other complaints and shows no signs of distress
[2025-01-14] MEDS: LIDOCAINE/EPINEPHRINE/TETRACAINE 3 ML GEL.PF.APP TOPICAL (20:41)
[2025-01-14 21:37] VITALS: BP 162/92; PULSE 79; O2SAT 98
[2025-01-14] MEDS: ACETAMINOPHEN 325 MG TABLET 650 MG PO (21:58)
--- NOTE | 2025-01-14 22:34 | PC.NURSE ---
i informed this patient that Ana Hdz is waiting for the final ct results to come back before she discharges you.
--- NOTE | 2025-01-14 22:51 | PC.NURSE ---
i gave this patient verbal and written discharge orders and this patient voices yes to understanding. at time of discharge this patient voices no concerns and shows no signs of distress
== END 2025-01-14 22:53 | disposition home or self-care (01) ==
PROVIDERS: Emergency Provider Emergency Medicine
DX: S01.01XA Laceration without foreign body of scalp, initial encounter (principal); S09.8XXA Other specified injuries of head, initial encounter; W01.190A Fall on same level from slipping, tripping and stumbling with subsequent striking against furniture, initial encounter; Z99.81 Dependence on supplemental oxygen
CPT/HCPCS: 12001; 70450; 72125; 99284

== ENCOUNTER 2025-02-18 08:14 | Outpatient (OUT) | payer MEDICARE, MEDICAID, SELFPAY ==
--- NOTE | 2025-02-18 08:25 | MM_ITS ---
Patient Name: JULIAN MONTAÑO MR#: [id number] : 1955 Exam Date: 02/18/2025 Ordering Doctor: RISHABH Pack CNP RADIOLOGY REPORT PROCEDURE: MM TOMOSYNTHESIS SCREENING BI COMPARISON: MM TOMOSYNTHESIS SCREENING BI, 01/16/2024. MG MAMM SCREEN 3D [facility] CAD, 08/11/2021. MG MAMM SCREEN [facility] W CAD, 07/04/2020. MG MAMM [facility] SCRN W CAD DIG, 05/02/2015. INDICATIONS: Screening for malignant neoplasm Calculator Name NCI Breast Cancer Risk Assessment Tool 5 Year Breast Cancer Risk 1.10% Lifetime Breast Cancer Risk 3.20% Personal Breast Cancer No Personal Ovarian Cancer No Treatments None Family Cancers Mother with uterine cancer at age ~55. LOCATION: [facility] BREAST COMPOSITION: The breasts are almost entirely fatty. FINDINGS: DIAGNOSTIC CATEGORY 1--NEGATIVE. RIGHT BREAST: No significant suspicious finding. LEFT BREAST: No significant suspicious finding. RECOMMENDATIONS: ROUTINE MAMMOGRAM AND CLINICAL EVALUATION IN 12 MONTHS. PLEASE NOTE: A NORMAL MAMMOGRAM DOES NOT EXCLUDE THE POSSIBILITY OF BREAST CANCER. A CLINICALLY SUSPICIOUS PALPABLE LUMP SHOULD BE BIOPSIED. Dictated by: Ryan Ugalde DO on 02/18/2025 at 15:52 Approved by: Ryan Ugalde DO on 02/18/2025 at 15:53
[2025-02-18 09:10] LABS: Basophils Absolute Auto 0.1 10^3/uL (0.0-0.1); Basophils Percent Auto 0.6 % (0.2-2.0); Eosinophils Absolute Auto 0.2 10^3/uL (0.0-0.7); Eosinophils Percent Auto 1.5 % (0.9-7.0); Hematocrit 36.1 % (36.0-48.0); Hemoglobin 11.6 g/dL (12.0-16.0); Immature Granulocytes Abs Auto 0.04 10^3/uL (0.00-0.03); Immature Granulocytes Pct Auto 0.4 % (0.0-0.5); Lymphocytes Absolute Auto 1.6 10^3/uL (1.2-3.8); Lymphocytes Percent Auto 15.8 % (20.5-60.0); Mean Corpuscular HGB Conc 32.1 g/dL (29.9-35.2); Mean Corpuscular Hemoglobin 28.7 pg (26.7-34.0); Mean Corpuscular Volume 89.4 fL (81.0-99.0); Mean Platelet Volume 9.1 fL (9.5-13.5); Monocytes Percent Auto 9.6 % (1.7-12.0); Neutrophils Absolute Auto 7.4 10^3/uL (1.4-6.5); Neutrophils Percent Auto 72.1 % (43.0-75.0); Platelet Count 298 10^3/uL (150-450); Red Blood Count 4.04 10^6/uL (4.20-5.40); Red Cell Distribution Width 15.9 % (11.0-15.0); White Blood Count 10.2 10^3/uL (4.0-11.0)
[2025-02-18 09:12] LABS: Bilirubin Urine NEGATIVE (NEGATIVE); Blood Urine TRACE-I (NEGATIVE); Clarity Urine CLOUDY (CLEAR); Color Urine LT. YELLOW (YELLOW); Glucose Urine UA NEGATIVE (NEGATIVE); Ketones Urine NEGATIVE (NEGATIVE); Leukocyte Esterase Urine MODERATE (NEGATIVE); Nitrite Urine NEGATIVE (NEGATIVE); Protein Urine TRACE mg/dL (NEG/TRACE); Specific Gravity Urine 1.015 (1.005-1.025); Urobilinogen Urine 0.2 EU/dL (0.2-1.0)
[2025-02-18 09:29] LABS: Estimated Average Glucose 126 mg/dL
[2025-02-18 09:29] LABS: Microalbum Creatinine Ratio Ur 58.3 mg/g (0.0-29.9); Microalbumin Urine Random 5.6 mg/dL (<=30.0)
[2025-02-18 09:31] LABS: Urine Microscopic Indicated YES
[2025-02-18 09:36] LABS: Alanine Aminotransferase 22 U/L (14-59); Albumin Globulin Ratio 0.8; Albumin Level 3.6 g/dL (3.4-5.0); Alkaline Phosphatase 111 U/L (46-116); Anion Gap 8.2; Aspartate Amino Transferase 11 U/L (15-37); Bilirubin Total 0.5 mg/dL (0.2-1.0); Calcium 9.4 mg/dL (8.5-10.1); Carbon Dioxide 31.6 mmol/L (21.0-32.0); Chloride 100 mmol/L (98-107); Chol HDL Ratio 2.7; Cholesterol 144 mg/dL (<=200); Estimated GFR (African America >60 (>=60 mL/min/1.73m^2); Estimated GFR (Non-African Ame 55 (>=60 mL/min/1.73m^2); Globulin 4.4 g/dL; Glucose 90 mg/dL (74-106); HDL Cholesterol 53 mg/dL (40-60); Potassium 4.8 mmol/L (3.5-5.1); Sodium 135 mmol/L (136-145); Thyroid Stimulating Hormone 4.718 uIU/mL (0.358-3.740); Triglycerides 125 mg/dL (<=150)
[2025-02-18 10:19] LABS: Percent Iron Saturation 9.9 %
[2025-02-18 11:02] LABS: WBC Urine >100 #/HPF (NONE SEEN)
[2025-02-18 11:07] LABS: Bacteria Urine MODERATE #/HPF (NONE SEEN); Cast Seen? NONE SEEN #/LPF (NONE SEEN); Crystals Seen? None Seen #/HPF (None Seen); Mucus Urine NONE SEEN (NONE SEEN); Squamous Epithelial Cell Urine FEW #/LPF (NONE/RARE)
[2025-02-19 04:07] LABS: Transferrin 234 mg/dL (192-364)
== END 2025-02-18 08:15 | disposition home or self-care (01) ==
LOC: MAMMO 08:18
PROVIDERS: PCP Nurse Practitioner; Visit Provider Nurse Practitioner
DX: Z12.31 Encounter for screening mammogram for malignant neoplasm of breast (principal); D50.0 Iron deficiency anemia secondary to blood loss (chronic); I10 Essential (primary) hypertension; E11.9 Type 2 diabetes mellitus without complications; F41.1 Generalized anxiety disorder; E55.9 Vitamin D deficiency, unspecified; E78.49 Other hyperlipidemia; Z80.8 Family history of malignant neoplasm of other organs or systems
CPT/HCPCS: 36415; 77063; 77067; 80053; 80061; 81001; 82043; 82306; 82570; 82728; 83036; 83540; 83550; 84443; 84466; 85025

== ENCOUNTER 2025-02-20 07:12 | Outpatient (OUT) | payer MEDICARE, MEDICAID, SELFPAY ==
--- OUTSIDE RECORDS SUMMARY | 2025-02-20 07:15 | XMS_ITS | CCD ---
Author Organization [facility] Care Team Providers Care Backing In Machine Tender Name Role Phone CHALO, DR GIANNA PACHECO [...] Arielle Admitting Unavailable Shaikh Sánchez MD Unavailable [place] EDITOR SOUND, Arielle C Unavailable Shaikh Sánchez MD Primary Care Provider Kirstin Carreon LPN Unavailable Unavailable Ian Soares MD Primary Care Provider Daniel Cardoso NP Unavailable Gustavo Romero LPN Unavailable Unavailable [place] EDITOR SOUND, Arielle C Unavailable [phone] Arturo Chanel MA Unavailable Unavailable Walker EDITOR SOUND-CDaniel Primary Care Provid er Ramos ANGULO, Soco Admit Provider Daniel Garza MD Attending Provider [phone] Sara ANGULO, Cecilia Other Provider Hernandez ANGULO, Suzette Other Provider Jeancarlos ANGULO, Ryan Other Provider Kelly JAIME, Ilana Other Provider Hubert Mcguire DO Other Provider [phone] Beni ANGULO, Dave Hidalgo Other Provider PROVIDER, UNKNOWN Attending Unavailable PROVIDER, UNKNOWN Admitting Unavailable Gianna Isabel MD Primary Care Provider Unava iljorden Wheeler EDITOR SOUND, Arielle Edmonds Unavailable Walker GARZA, Daniel Unavailable [phone] Daniel Cardoso Primary Care Unavaila [place] Banks Admitting Unavailable Daniel Garza Attending Unavailable Suzette Ng Consulting Unavailable Ryan Arshad Consulting Unavailable Ilana Mendoza Consulting Unavailable Hubert Mcguire Jr Consulting UnavailDave Conn Consulting Unavaila iveth Ruiz, Cecilia Consulting Unavailable IAN SOARES Attending Unavailable LA PACK Attending Unavailable LA PACK Attending Unavailable ARIELLE WHEELER Attending Unavailable SHAIKH SÁNCHEZ Attending Unavailable DANIEL CARDOSO Attending UnavailDANIEL Humphrey Attending Unavailrocky Pack EDITOR SOUND, La Unavailable Medications Current Medications Medication Drug Class(es) Dates Sig (Normalized) Sig (Original) acetaminophen 500 mg oral capsule (1 source) Start: 01-04-2025 take 1 capsule by mouth every six hours as needed Acetaminophen 500 mg capsule Active 500 MG PO Every 6 hours as needed January 04, 2025 12:00am albuterol 0.83 mg/ml inhalation solution (20 sources) beta2-Adrenergic Agonist Start: 02-12-2025 albuterol (2.5 MG/3ML) 0.083% nebulizer solution Indications: Chronic obstructive pulmonary disease, unspecified COPD type (CMS/HCC) Take 3 mL (2.5 mg) by nebulization every 6 (six) hours if needed for wheezing 75 mL 3 02/12/2025 Active Start: 12-10-2024 Albuterol Sulf ate 90 mcg/actuation HFA aerosol inhaler Active INHALATION December 10, 2024 12:00am Start: 06-21-2024 End: 01-14-2025 take 2 puff(s) by inhalation every four hours for wheezing albuterol HFA 90 mcg/act inhaler Indications: Chronic obstructive pulmonary disease, unspecified COPD type (CMS/HCC) Inhale 2 puffs every 4 (four) hours if needed for wheezing 18 g 3 01/14/2025 Active albuterol (2.5 M G/3ML) 0.083% nebulizer solution [...] mouth and remain upright for 30min Active amoxicillin 875 mg / clavulanate 125 mg oral tablet (8 sources) Penicillin-class Antibacterial Start: 01-24-20 End: 02-07-20 take 1 tablet by mouth in the morning amoxicillin-clavulan ate (Augmentin) 875-125 MG tablet Indications: COPD exacerbation (CMS/HCC) Take 1 tablet (875 mg) by mouth in the morning and 1 tablet (875 mg) before bedtime. Do all this for 10 days. Take with food. 20 tablet 01/23/2025 02/06/2025 Discontinued (Therapy completed) Start: 12-14-2024 End: 01-04-2025 take 1 tablet by mouth twice daily Amoxicillin-Pot Clavulanate (Augmentin) 500-125 mg tablet Discontinued 1 TAB PO Twice daily 6 December 14, 2024 12:00am January 04, 2025 [...] tablet (20 sources) HMG-CoA Reductase Inhibitor Start: 01-22-2025 take 1 tablet by mouth once daily atorvastatin (Lipitor) 40 MG tablet Indications: Hyperlipidemia, unspecified (CMS/HCC) Take 1 tablet (40 mg) by mouth Daily 90 tablet 01/22/2025 Active Start: 01-09-2018 End: 01-04-2025 take 1 tablet by mouth [...] oral tablet (20 sources) Vitamin D Start: take 1 tablet by mouth once daily [...] tablet (1 source) Start: 04-30-20 End: 07-07-20 take 1 tablet by mouth once daily [...] not crush, chew, or split.. 30 tablet 12/06/2024 12/06/2025 Active ferrous sulfate (IRON ORAL) [...] Asthma with COPD (chronic obstructive pulmonary disease) ([facility]) Inhale 1 Inhalation Daily 3 each 1 08/27/2024 Active Start: 08-27-2024 End: 11-25-2024 Uvlxbdeqpyv-Virmfxgeq-Qkysfb (Trelegy Ellipta) 200-62.5-25 MCG/ACT aerosol powder Indications: Asthma with COPD (chronic obstructive pulmonary disease) ([facility]) Inhale 1 Inhalation Daily 3 each 1 08/27/2024 11/25/2024 Active Start: 06-11-2024 End: 08-27-2024 Ywjuwgttidk-Fnmrfagxb-Micadr (Trelegy Ellipta) 200-62.5-25 MCG/ACT aerosol powder Indications: Asthma with COPD (chronic obstructive pulmonary disease) ([facility]) Inhale 1 Inhalation Daily 3 each 1 06/11/2024 08/27/2024 Discontinued (Reorder) Start: 06-11-2024 End: 09-09-2024 Cbbyyfmpwxb-Fctmkrdfs-Inuieo (Trelegy Ellipta) 200-62.5-25 MCG/ACT aerosol powder Indications: Asthma with COPD (chronic obstructive pulmonary disease) ([facility]) Inhale 1 Inhalation Daily 3 each 1 06/11/2024 09/09/2024 Active Qepnclhuuhf-Xeqcclvsy-Iadois er (3 sources) Start: 01-04-2025 Aeijgtannwz-Cmdihpvbc-Mnstww er (Trelegy Ellipta) 200-62.5-25 mcg blister with device Active INHALATION Twice daily January 04, 2025 9:12am Start: 12-10-2024 End: 01-04-2025 Wjrolmzrecx-Qnwamaqpp-Ittivq er (Trelegy Ellipta) 200-62.5-25 mcg blister with device Discontinued INHALATION December 10, 2024 12:00am January 04, 2025 9:14am Start: 12-10-2024 Fluticasone-Um eclidin-Vilanter (Trelegy Ellipta) 200-62.5-25 mcg blister with device Active INHALATION December 10, 2024 12:00am hydroCHLOROthiazide 12.5 mg / losartan potassium 50 mg oral tablet (13 sources) Thiazide Diuretic, Angiotensin 2 Receptor Alysha Start: 01-26-2024 End: 01-25-2025 take 1 tablet by mouth once daily losartan-hydroCHLOROthiazide (Hyzaar) 50-12.5 MG tablet Indications: Primary hypertension ([facility]) Take 1 tablet by mouth Daily 30 tablet 01/26/2024 09/20/2024 Discontinued (Dose adjustment) Lactate (4 sources) ammonium lactate 12-12 % kit Apply topically. Active lisinopril 10 mg oral tablet (4 sources) Angiotensin Converting Enzyme Inhibitor take 1 tablet by mouth twice daily lisinopril (PRINIVIL,ZESTRIL) 10 mg tablet Take 10 mg by mouth 2 (two) times a day. Active LORazepam 0.5 mg oral tablet (18 sources) Benzodiazepine Start: 01-07-2025 End: 01-17-2025 take 1 tablet by mouth three times daily as needed for anxiety LORazepam (Ativan) 0.5 MG tablet Indications: ELADIO (generalized anxiety disorder) (CMS/HCC) Take 1 tablet (0.5 mg) by mouth 3 (three) times a day as needed for anxiety for up to 10 days 30 tablet 01/07/2025 Active Start: 01-04-2025 take 1 tablet by angie th three times daily as needed Lorazepam 0.5 mg tablet Active 0.5 MG PO Three times daily as needed January 04, 2025 12:00am End: 02-06-2025 take 1 tablet by mouth every six hours as needed for anxiety LORazepam (Ativan) 0.5 MG tablet Take 0.5 mg by mouth every 6 (six) hours if needed for anxiety 02/06/2025 Discontinued (Therapy completed) meloxicam 7.5 mg oral tablet (20 sources) [...] mg oral tablet (20 sources) Biguanide Start: 01-22-2025 take 1 tablet by mouth once daily metFORMIN (Glucophage) 500 MG tablet Indications: Type 2 diabetes mellitus without complications Take 1 tablet (500 mg) by mouth Daily 100 tablet 01/22/2025 Active Start: 04-30-2024 End: 01-04-2025 take 1 tablet by mouth once daily metFORMIN (Glucophage) 500 MG tablet Indications: Type 2 diabetes mellitus without complications (CMS/HCC) Take 1 tablet (500 mg) by mouth Daily 100 tablet 09/11/2024 Active take 1 tablet by angie th twice daily at mealtime metFORMIN (GLUCOPHAGE) 500 mg tablet Take 500 mg by mouth 2 (two) times [...] in the morning. Active polyethylene glycol 3350 57414 mg powder for oral solution (4 sources) [...] Drug Class(es) Dates Sig (Normalized) Sig (Original) losartan potassium 50 mg oral tablet (20 sources) Angiotensin 2 Receptor Alysha Start: 09-20-2024 End: 09-20-2025 Losartan 50 mg [...] Tablet Discontinued 40 MG PO Daily 4 2 December 14, 2024 12:00am January 04, 2025 9:14am Problems Active Problems Problem Classification Problem Date Documented Date Episodic/Chronic Administrative/socia l admission (5 sources) Other reduced mobility; Translations: [Impaired mobility and activities of daily living] Onset: 12-09-2024 12-13-2024 Episodic Anxiety disorders (14 sources) Anxiety; Translations: [Anxiety disorder, unspecified] Onset: [...] [Asthma with COPD (chronic obstructive pulmonary disease) ([facility])] Onset: 11-21-2023 08-27-2024 Chronic Chronic obstructive pulmonary disease and bronchiectasis (20 sources) Chronic obstructive pulmonary disease, unspecified; Translations: [...] D deficiency, unspecified] Onset: 06-21-2024 06-21-2024 Chronic Open wounds of head; neck; and trunk (9 sources) Scalp laceration; Translations: [Laceration without foreign body of scalp, sequela] Onset: 01-23-2025 01-23-2025 Episodic Other and unspecified benign neoplasm (4 sources) [...] Translations: [ABNORMAL WEIGHT LOSS] Onset: 01-09-2023 Episodic Other screening for suspected conditions (not mental disorders or infectious disease) (20 sources) Patient encounter status; Translations: [Encounter for screening mammogram for malignant neoplasm of breast] Onset: 11-21-2023 11-21-2023 Episodic Otitis media and related conditions (2 [...] 12-09-2024 Episodic Respiratory failure; insufficiency; arrest (adult) (20 sources) Acute respiratory failure; Translations: [Acute respiratory failure with hypoxia] Onset: 12-09-2024 12-10-2024 Episodic Substance-related disorders (20 sources) Smoker; Translations: [Nicotine dependence, unspecified, uncomplicated] Onset: 11-21-2023 Resolved: 01-23-2025 11-21-2023 Chronic Past or Other Problems Problem Classification Problem Date Documented Da te Episodic/Chronic Gastrointestinal hemorrhage (4 sources) Rectal hemorrhage; Translations: [Hemorrhage of anus and rectum] Onset: 11-29-2019 11-29-2019 Episodic Influenza (20 sources) Influenza due to Influenza A virus; Translations: [Influenza due to other identified influenza virus with other respiratory manifestations] Onset: 12-09-2024 Resolved: 02-06-2025 12-10-2024 Episodic Mood disorders (20 sources) Mood disorders; Translations: [Depression, unspecified] Onset: 12-09-2024 03-08-2024 Other and unspecified benign neoplasm (20 sources) Acoustic neuroma; Translations: [Benign neoplasm of cranial nerves] Onset: 01-26-2024 Resolved: 02-06-2025 02-23-2024 Chronic Other and unspecified benign neoplasm [...] [Other fecal abnormalities] Onset: 11-29-2019 01-26-2024 Episodic Unclassified (4 sources) Onset: 11-29-2019 11-29-2019 Results Test Name Value Interpretation Reference Range Facility ALL CBC WITH AUTO DIFFon BASOPHILS ABSOLUTE AUTO 0.1 N [facility] Basophils/100 WBC (Bld) 0.6 % 0.2 - 2.0 % [facility] Eosinophils/100 WBC (Bld) 1.5 % 0.9 - 7.0 % [facility] Erythrocyte distribution width (RBC) [Ratio] 15.9 % High 11.0 - 15.0 % [facility] Hematocrit (Bld) [Volume fraction] 36.1 % 36.0 - 48.0 % [facility] Hemoglobin (Bld) [Mass/Vol] 11.6 g/dL Low 12.0 - 16.0 g/dL [facility] IMMATURE GRANULOCYTES ABS AUTO 0.04 High [facility] Immature granulocytes/100 WBC (Bld) 0.4 % 0.0 - 0.5 % [facility] Interpretation and review of laboratory results Abnormal [facility] LYMPHOCYTES ABSOLUTE AUTO 1.6 [facility] Lymphocytes/100 WBC (Bld) 15.8 % Low 20.5 - 60.0 % [facility] MCH (RBC) [Entitic mass] 28.7 pg 26. 7 - 34.0 pg [facility] MCHC (RBC) [Mass/Vol] 32.1 g/dL 29.9 - 35.2 g/dL [facility] MCV (RBC) [Entitic vol] 89.4 fL 81.0 - 99.0 fL [facility] MONOCYTES ABSOLUTE AUTO 1 High N [facility] Monocytes/100 WBC (Bld) 9.6 % 1.7 - 12.0 % [facility] NEUTROPHILS ABSOLUTE AUTO 7.4 High [facility] Neutrophils/100 WBC (Bld) 72.1 % 43.0 - 75.0 % [facility] Platelet mean volume (Bld) [Entitic vol] 9.1 fL Low 9.5 - 13.5 fL [facility] TBH EO # 0.2 [facility]H PLT 298 [facility] TB RBC 4.04 Low [facility] TB WBC 10.2 [facility] MM TOMOSYNTHESIS SCREENING B Ion 02-18-2025 [place] [address] Mammography Report Signed Patient: JULIAN MONTAÑO MR#: [id number] : 1955 Acct:[id number] Age/Sex: 69 / F ADM Date: 02/18/25 Loc: MAMMO Attending Dr: La Pack NP Ordering Physician: La Pack NP Results: Date of Service: 02/18/25 Follow Up: Procedure(s): MM tomosynthesis screening BI Accession Number(s): [id number] cc: La Pack NP Patient Name: JULIAN MONTAÑO MR#: [id number] : 1955 Exam Date: 02/18/2025 Ordering Doctor: RISHABH Pack CNP RADIOLOGY REPORT PROCEDURE: MM TOMOSYNTHESIS SCREENING BI COMPARISON: MM TOMOSYNTHESIS SCREENING BI, 01/16/2024. MG MAMM SCREEN 3D [facility] CAD, 08/11/2021. MG MAMM SCREEN [facility] W CAD, 07/04/2020. MG MAMM [facility] SCRN W CAD DIG, 05/02/2015. INDICATIONS: Screening for malignant neoplasm Calculator Name [facility] Breast Cancer Risk Assessment Tool 5 Year Breast Cancer Risk 1.10% Lifetime Breast Cancer Risk 3.20% Personal Breast Cancer No Personal Ovarian Cancer No Treatments None Family Cancers Mother with uterine cancer at age 55. LOCATION: [facility] BREAST COMPOSITION: The breasts are almost entirely fatty. FINDINGS: DIAGNOSTIC CATEGORY 1--NEGATIVE. RIGHT BREAST: No significant suspicious finding. LEFT BREAST: No significant suspicious finding. RECOMMENDATIONS: ROUTINE MAMMOGRAM AND CLINICAL EVALUATION IN 12 MONTHS. PLEASE NOTE: A NORMAL MAMMOGRAM DOES NOT EXCLUDE THE POSSIBILITY OF BREAST CANCER. A CLINICALLY SUSPICIOUS PALPABLE LUMP SHOULD BE BIOPSIED. Dictated by: Ryan Ugalde DO on 02/18/2025 at 15:52 Approved by: Ryan Ugalde DO on 02/18/2025 at 15:53 Dictated By: Ryan Ugalde M.D. Signed By: 02/18/25 1554 DD/ 1553 TD/TT: Pharmacy Clerk: [facility] Radiology, Radiologist, MD - 02/18/2025 [place] [address] Mammography Report Signed Patient: JULIAN MONTAÑO MR#: [id number] : 1955 Acct:[id number] Age/Sex: 69 / F ADM Date: 02/18/25 Loc: MAMMO Attending Dr: La Pack NP Ordering Physician: La Pack NP Results: Date of Service: 02/18/25 Follow Up: Procedure(s): MM tomosynthesis screening BI Accession Number(s): [id number] cc: La Pack NP Patient Name: JULIAN MONTAÑO MR#: [id number] : 1955 Exam Date: 02/18/2025 Ordering Doctor: RISHABH Pack CNP RADIOLOGY REPORT PROCEDURE: MM TOMOSYNTHESIS SCREENING BI COMPARISON: MM TOMOSYNTHESIS SCREENING BI, 01/16/2024. MG MAMM SCREEN 3D [facility] CAD, 08/11/2021. MG MAMM SCREEN [facility] W CAD, 07/04/2020. MG MAMM [facility] SCRN W CAD DIG, 05/02/2015. INDICATIONS: Screening for malignant neoplasm Calculator Name [employer] Breast Cancer Risk Assessment Tool 5 Year Breast Cancer Risk 1.10% Lifetime Breast Cancer Risk 3.20% Personal Breast Cancer No Personal Ovarian Cancer No Treatments None Family Cancers Mother with uterine cancer at age 55. LOCATION: [facility] BREAST COMPOSITION: The breasts are almost entirely fatty. FINDINGS: DIAGNOSTIC CATEGORY 1--NEGATIVE. RIGHT BREAST: No significant suspicious finding. LEFT BREAST: No significant suspicious finding. RECOMMENDATIONS: ROUTINE MAMMOGRAM AND CLINICAL EVALUATION IN 12 MONTHS. PLEASE NOTE: A NORMAL MAMMOGRAM DOES NOT EXCLUDE THE POSSIBILITY OF BREAST CANCER. A CLINICALLY SUSPICIOUS PALPABLE LUMP SHOULD BE BIOPSIED. Dictated by: Ryan Ugalde DO on 02/18/2025 at 15:52 Approved by: Ryan Ugalde DO on 02/18/2025 at 15:53 Dictated By: Ryan Ugalde M.D. Signed By: 02/18/25 1554 DD/ 1553 TD/TT: Pharmacy Clerk: [facility] Radiology Study observation (narrative) [facility] MM TOMOSYNTHESIS SCREENING B IOrdered By: Radiologist Radiology on 02-18-2025 [facility] Work Phone: Alanine aminotransferase [En zymatic activity/volume] in Serum or PlasmaOrdered By: Daniel Garza on 12-14-2024 ALT [Catalytic activity/Vol] Alanine aminotransferase [Enzymatic activity/volume] in Serum or Plasma High 7-52 [facility] Albumin [Mass/volume] in Ser um or Plasma by Bromocresol green (BCG) dye binding methoOrdered By: Daniel Garza on 12-14-2024 Albumin BCG dye [Mass/Vol] Albumin [Mass/volume] in Serum or Plasma by Bromocresol green (BCG) dye binding metho 3.5-5.7 [facility] Alkaline phosphatase [Enzyma tic activity/volume] in Serum or PlasmaOrdered By: Daniel Garza on 12-14-2024 ALP [Catalytic activity/Vol] Alkaline phosphatase [Enzymatic activity/volume] in Serum or Plasma 34-104 [facility] Aspartate aminotransferase [ Enzymatic activity/volume] in Serum or PlasmaOrdered By: Daniel Garza on 12-14-2024 AST [Catalytic activity/Vol] Aspartate aminotransferase [Enzymatic activity/volume] in Serum or Plasma 13-39 [facility] Basophils Auto (Bld) [#/Vol] Ordered By: Daniel Garza on 12-14-2024 Basophils (Bld) [#/Vol] Automated basoph il count 0.0-0.2 [facility] Basophils/100 WBC Auto (Bld) Ordered By: Daniel Garza on 12-14-2024 Basophils/100 WBC (Bld) Automated basophil % . [facility] Bilirubin.total [Mass/volume ] in Serum or PlasmaOrdered By: Daniel Garza on 12-14-2024 Bilirubin [Mass/Vol] Bilirubin.total [Mass/volume] in Serum or Plasma 0.3-1.0 [facility] Calcium [Mass/volume] in Ser um or PlasmaOrdered By: Daniel Garza on 12-14-2024 Calcium [Mass/Vol] Calcium [Mass/volume ] in Serum or Plasma 8.6-10.3 [facility] Carbon dioxide, total [Moles /volume] in Serum or PlasmaOrdered By: Daniel Garza on 12-14-2024 CO2 [Moles/Vol] Carbon dioxide, tota l [Moles/volume] in Serum or Plasma 21.0-31.0 [facility] Chloride [Moles/volume] in S idris or PlasmaOrdered By: Daniel Garza on 12-14-2024 Chloride [Moles/Vol] Chloride [Moles/volume] in Serum or Plasma Low 98-107 [facility] Complete Blood Count Auto Di ffon 12-14-2024 Basophils (Bld) [#/Vol] 0.0 10*3/uL Normal 0.0-0.2 [facility] Comment on above: Result Comment: PERF ORMED BY: [place] [address] PATHOLOGIST HOTEL OPERATION MANAGER MANDY ACUÑA M.D. Performed By: #### C MP, CBC #### [facility] [address] Basophils/100 WBC (Bld) 0.2 % Normal . [facility] Comment on above: Performed By: #### C MP, CBC #### [address] Eosinophils (Bld) [#/Vol] 0.0 10*3/uL Normal 0.0-0.45 [facility] Comment on above: Performed By: #### C MP, CBC #### [address] Eosinophils/100 WBC (Bld) 0.0 % Normal . [facility] Comment on above: Performed By: #### C MP, CBC #### [address] Erythrocyte distribution width (RBC) [Ratio] 15.3 % Normal 11.9-15.3 [facility] Comment on above: Performed By: #### C MP, CBC #### [address] Hematocrit (Bld) [Volume fraction] 40.4 % Normal 34.0-46.4 [facility] Comment on above: Performed By: #### C MP, CBC #### [address] Hemoglobin (Bld) [Mass/Vol] 13.4 g/dL Normal 11.8-15.4 [facility] Comment on above: Performed By: #### C MP, CBC #### [address] Lymphocytes (Bld) [#/Vol] 0.6 10*3/uL Low 1.00-4.8 [facility] Comment on above: Performed By: #### C MP, CBC #### [place] [address] [place] Lymphocytes/100 WBC (Bld) 7.0 % Normal . [facility] Comment on above: Performed By: #### C MP, CBC #### [address] MCH (RBC) [Entitic mass] 28.5 pg Normal 24.7-34.3 [facility] Comment on above: Performed By: #### C MP, CBC #### [address] [place] [address] [place] MCV (RBC) [Entitic vol] 85.6 fL Normal 80-100 [facility] Comment on above: Performed By: #### C MP, CBC #### [address] Mean Corpuscular HGB Conc 33.3 g/dL Normal 32.0-35.0 [facility] Comment on above: Performed By: #### C MP, CBC #### [address] Monocytes (Bld) [#/Vol] 0.7 10*3/uL Normal 0.0-0.8 [facility] Comment on above: Performed By: #### C MP, CBC #### [address] Monocytes/100 WBC (Bld) 8.2 % Normal . [facility] Comment on above: Performed By: #### C MP, CBC #### [address] Neutrophils (Bld) [#/Vol] 7.2 10*3/uL Normal 1.8-7.7 [facility] Comment on above: Performed By: #### C MP, CBC #### [address] Neutrophils/100 WBC (Bld) 84.6 % Normal . [facility] Comment on above: Performed By: #### C MP, CBC #### [address] NRBC% 0.1 /100{WBC} Normal 0-0.5 [facility] Comment on above: Performed By: #### C MP, CBC #### [address] Platelet mean volume (Bld) [Entitic vol] 7.4 fL Normal 6.3-10.7 [facility] Comment on above: Performed By: #### C MP, CBC #### [address] Platelets (Bld) [#/Vol] 276 10*3/uL Normal 150-450 [facility] Comment on above: Performed By: #### C MP, CBC #### [address] RBC (Bld) [#/Vol] 4.72 10*6/uL Normal 3.60-5.00 [facility] Comment on above: Performed By: #### C MP, CBC #### [address] WBC (Bld) [#/Vol] 8.6 10*3/uL Normal 3.8-11.6 [facility] Comment on above: Performed By: #### C MP, CBC #### [address] Comprehensive Metabolic Pane ana 12-14-2024 Albumin [Mass/Vol] 3.7 g/dL Normal 3.5-5.7 [facility] Comment on above: Performed By: #### C MP, CBC #### [address] Albumin/Globulin [Mass ratio] 1.2 {ratio} Normal [facility] Comment on above: Performed By: #### C MP, CBC #### [address] ALP [Catalytic activity/Vol] 84 U/L Normal 34-104 [facility] Comment on above: Performed By: #### C MP, CBC #### [address] ALT [Catalytic activity/Vol] 55 U/L High 7-52 [facility] Comment on above: Performed By: #### C MP, CBC #### [address] Anion gap [Moles/Vol] 12.7 mmol/L Normal 6.0-15.0 [facility] Comment on above: Performed By: #### C MP, CBC #### [address] AST [Catalytic activity/Vol] 29 U/L Normal 13-39 [facility] Comment on above: Performed By: #### C MP, CBC #### [address] Bilirubin [Mass/Vol] 0.6 mg/dL Normal 0.3-1.0 [facility] Comment on above: Performed By: #### C MP, CBC #### [place] [address] [place] Calcium [Mass/Vol] 9.2 mg/dL Normal 8.6-10.3 [facility] Comment on above: Performed By: #### C MP, CBC #### [address] Chloride [Moles/Vol] 93 mmol/L Low 98-107 [facility] Comment on above: Performed By: #### C MP, CBC #### [address] CO2 [Moles/Vol] 29.4 mmol/L Normal 21.0-31.0 [facility] Comment on above: Performed By: #### C MP, CBC #### [place] [address] [place] Creatinine [Mass/Vol] 0.81 mg/dL Normal 0.60-1.20 [facility] Comment on above: Performed By: #### C MP, CBC #### [place] [address] [place] Creatinine Clr Calc Pharmacy 66.51 Normal [facility] Comment on above: Result Comment: PERF ORMED BY: [place] [address] PATHOLOGIST HOTEL OPERATION MANAGER MANDY ACUÑA M.D. Performed By: #### C MP, CBC #### [place] [address] [place] GFR/1.73 sq M.predicted MDRD (S/P/Bld) [Vol rate/Area] mL/min/{1.73_m2} Normal [facility] Comment on above: Performed By: #### C MP, CBC #### [address] Globulin (S) [Mass/Vol] 3.2 g/dL Normal [facility] Comment on above: Performed By: #### C MP, CBC #### [address] Glucose [Mass/Vol] 145 mg/dL High 70-100 [facility] Comment on above: Result Comment: [facility] [place] Glucose Reference Range is dependent on time and content of last meal. Glucose of more than 200 mg/dL in a nonstressed, ambulatory subject supports the diagnosis of Diabetes Mellitus. ADA recommended reference range Performed By: #### C MP, CBC #### [address] Potassium [Moles/Vol] 4.1 mmol/L Normal 3.5-5.1 [facility] Comment on above: Performed By: #### C MP, CBC #### [address] Protein [Mass/Vol] 6.9 g/dL Normal 6.4-8.9 [facility] Comment on above: Performed By: #### C MP, CBC #### [address] Sodium [Moles/Vol] 131 mmol/L Low 136-145 [facility] Comment on above: Performed By: #### C MP, CBC #### [address] Urea nitrogen [Mass/Vol] 24 mg/dL Normal 7-25 [facility] Comment on above: Performed By: #### C MP, CBC #### [place] [address] [place] Creatinine [Mass/volume] in Serum or PlasmaOrdered By: Daniel Garza on 12-14-2024 Creatinine [Mass/Vol] Creatinine [Mass/volume] in Serum or Plasma 0.60-1.20 [facility] Eosinophils Auto (Bld) [#/Vo l]Ordered By: Daniel Garza on 12-14-2024 Eosinophils (Bld) [#/Vol] Automated eosinophil count 0.0-0.45 [facility] Eosinophils/100 WBC Auto (Bl d)Ordered By: Daniel Garza on 12-14-2024 Eosinophils/100 WBC (Bld) Automated eosinophil % . [facility] Erythrocyte distribution wid th Auto (RBC) [Ratio]Ordered By: Daniel Garza on 12-14-2024 Erythrocyte distribution width (RBC) [Ratio] Erythrocyte distribution width [Ratio] by Automated count 11.9-15.3 [facility] Globulin Calc (S) [Mass/Vol] Ordered By: Daniel Garza on 12-14-2024 Globulin (S) [Mass/Vol] Serum globulin measurement by calculation (mass/volume) [facility] Glucose Glucometer (BldC) [M ass/Vol]Ordered By: Daniel Garza on 12-14-2024 Glucose [Mass/Vol] Capillary blood glucose measurement by glucometer (mass/volume) [facility] Comment on above: Random Glucose Refer ence Range is dependent on time and content of last meal. Glucose of more than 200 mg/dL in a nonstressed, ambulatory subject supports the diagnosis of Diabetes Mellitus. Glucose Poct Glucometerson 0 12-14-2024 Glucose [Mass/Vol] 236 mg/dL Normal [facility] Comment on above: Result Comment: [facility] [place] Glucose Reference Range is dependent on time and content of last meal. Glucose of more than 200 mg/dL in a nonstressed, ambulatory subject supports the diagnosis of Diabetes Mellitus. PERFORMED BY: [facility] [address] [place] [address] PATHOLOGIST H[employer]EL OPERATION MANAGER MANDY ACUÑA M.D. Performed By: #### G LULS ####Point of Care testing, Glucose [Mass/Vol] 154 mg/dL Normal [facility] Comment on above: Result Comment: [facility] [place] Glucose Reference Range is dependent on time and content of last meal. Glucose of more than 200 mg/dL in a nonstressed, ambulatory subject supports the diagnosis of Diabetes Mellitus. PERFORMED BY: [facility] [address] [place] [address] PATHOLOGIST HOTEL OPERATION MANAGER MANDY ACUÑA M.D. Performed By: #### G LULS ####Point of Care testing, Glucose [Mass/Vol] 105 mg/dL Normal [facility] Comment on above: Result Comment: [place] [facility] Glucose Reference Range is dependent on time and content of last meal. Glucose of more than 200 mg/dL in a nonstressed, ambulatory subject supports the diagnosis of Diabetes Mellitus. PERFORMED BY: [facility] [place] [address] PATHOLOGIST HOTEL OPERATION MANAGER MANDY ACUÑA M.D. Performed By: #### G LULS ####Point of Care testing, Glucose [Mass/volume] in Ser um or PlasmaOrdered By: Daniel Garza on 12-14-2024 Glucose [Mass/Vol] Glucose [Mass/volume ] in Serum or Plasma High 70-100 [facility] Comment on above: ADA recommended refe rence rangeRandom Glucose Reference Range is dependent on time and content of last meal. Glucose of more than 200 mg/dL in a nonstressed, ambulatory subject supports the diagnosis of Diabetes Mellitus. Hematocrit Auto (Bld) [Volum e fraction]Ordered By: Daniel Garza on 12-14-2024 Hematocrit (Bld) [Volume fraction] Hematocrit [Volume Fraction] of Blood by Automated count 34.0-46.4 [facility] Hemoglobin [Mass/volume] in BloodOrdered By: Daniel Garza on 12-14-2024 Hemoglobin (Bld) [Mass/Vol] Hemoglobin [Mass/volume] in Blood 11.8-15.4 [facility] Leukocytes [#/volume] correc brendan for nucleated erythrocytes in Blood by Automated counOrdered By: Daniel Garza on 12-14-2024 WBC corrected for nucl RBC Auto (Bld) [#/Vol] Leukocytes [#/volume] corrected for nucleated erythrocytes in Blood by Automated coun 3.8-11.6 [facility] Lymphocytes Auto (Bld) [#/Vo l]Ordered By: Daniel Garza on 12-14-2024 Lymphocytes (Bld) [#/Vol] Lymphocytes [#/volume] in Blood by Automated count Low 1.00-4.8 [facility] Lymphocytes/100 WBC Auto (Bl d)Ordered By: Daniel Garza on 12-14-2024 Lymphocytes/100 WBC (Bld) Lymphocytes/100 leukocytes in Blood by Automated count . [facility] MCH Auto (RBC) [Entitic mass ]Ordered By: Daniel Garza on 12-14-2024 MCH (RBC) [Entitic mass] MCH [Entitic ma ss] by Automated count 24.7-34.3 [facility] MCHC Auto (RBC) [Mass/Vol]Or dered By: Daniel Garza on 12-14-2024 MCHC (RBC) [Mass/Vol] MCHC [Mass/volume] by Automated count 32.0-35.0 [facility] MCV Auto (RBC) [Entitic vol] Ordered By: Daniel Garza on 12-14-2024 MCV (RBC) [Entitic vol] MCV [Entitic vol ume] by Automated count 80-100 [facility] Monocytes Auto (Bld) [#/Vol] Ordered By: Daniel Garza on 12-14-2024 Monocytes (Bld) [#/Vol] Automated blood monocyte count 0.0-0.8 [facility] Monocytes/100 WBC Auto (Bld) Ordered By: Daniel Garza on 12-14-2024 Monocytes/100 WBC (Bld) Automated monocyte % . [facility] Neutrophils Auto (Bld) [#/Vo l]Ordered By: Daniel Garza on 12-14-2024 Neutrophils (Bld) [#/Vol] Neutrophils [#/volume] in Blood by Automated count 1.8-7.7 [facility] Neutrophils/100 WBC Auto (Bl d)Ordered By: Daniel Garza on 12-14-2024 Neutrophils/100 WBC (Bld) Automated neutrophil % . [facility] No Panel InformationOrdered By: Daniel Garza on 12-14-2024 Estimated GFR (CKD-EPI) > 60.0 mL/Min [facility] Creatinine Clearance (Chem 66.51 [facility] Nucleated erythrocytes [Pres ence] in Blood by Automated countOrdered By: Daniel Garza on 12-14-2024 Nucleated RBC Auto Ql (Bld) Nucleated erythrocytes [Presence] in Blood by Automated count 0-0.5 [facility] Platelet mean volume Auto (B ld) [Entitic vol]Ordered By: Daniel Garza on 12-14-2024 Platelet mean volume (Bld) [Entitic vol] Platelet mean volume [Entitic volume] in Blood by Automated count 6.3-10.7 [facility] Platelets Auto (Bld) [#/Vol] Ordered By: Daniel Garza on 12-14-2024 Platelets (Bld) [#/Vol] Platelets [#/vol ume] in Blood by Automated count 150-450 [facility] Potassium [Moles/volume] in Serum or PlasmaOrdered By: Daniel Garza on 12-14-2024 Potassium [Moles/Vol] Potassium [Moles/volume] in Serum or Plasma 3.5-5.1 [facility] Protein [Mass/volume] in Ser um or PlasmaOrdered By: Daniel Garza on 12-14-2024 Protein [Mass/Vol] Protein [Mass/volume ] in Serum or Plasma 6.4-8.9 [facility] RBC Auto (Bld) [#/Vol]Ordere d By: Daniel Garza on 12-14-2024 RBC (Bld) [#/Vol] Erythrocytes [#/volume] in Blood by Automated count 3.60-5.00 [facility] Serum or plasma albumin/glob ulin mass ratioOrdered By: Daniel Garza on 12-14-2024 Albumin/Globulin [Mass ratio] Serum or plasma albumin/globulin mass ratio [facility] Serum or plasma anion gap de terminationOrdered By: Daniel Garza on 12-14-2024 Anion gap [Moles/Vol] Serum or plasma an ion gap determination 6.0-15.0 [facility] Sodium [Moles/volume] in Ser um or PlasmaOrdered By: Daniel Garza on 12-14-2024 Sodium [Moles/Vol] Sodium [Moles/volume ] in Serum or Plasma Low 136-145 [facility] Urea nitrogen [Mass/volume] in Serum or PlasmaOrdered By: Daniel Garza on 12-14-2024 Urea nitrogen [Mass/Vol] Urea nitrogen [Mass/volume] in Serum or Plasma 7-25 [facility] WBC Auto (Bld) [#/Vol]Ordere d By: Daniel Garza on 12-14-2024 WBC (Bld) [#/Vol] Leukocytes [#/volume ] in Blood by Automated count 3.8-11.6 [facility] Complete Blood Count Auto Di ffon 12-13-2024 Basophils (Bld) [#/Vol] 0.0 10*3/uL Normal 0.0-0.2 [facility] Comment on above: Result Comment: PERF ORMED BY: [place] [address] PATHOLOGIST H[employer]EL OPERATION MANAGER MANDY ACUÑA M.D. Performed By: #### C ELDON, PHOS #### [address] Basophils/100 WBC (Bld) 0.1 % Normal . T abilio [facility] Comment on above: Performed By: #### C MP, PHOS #### [address] Eosinophils (Bld) [#/Vol] 0.0 10*3/uL Normal 0.0-0.45 [facility] Comment on above: Performed By: #### C MP, PHOS #### [address] Eosinophils/100 WBC (Bld) 0.0 % Normal . [facility] Comment on above: Performed By: #### C MP, PHOS #### [address] Erythrocyte distribution width (RBC) [Ratio] 15.4 % High 11.9-15.3 [facility] Comment on above: Performed By: #### C MP, PHOS #### [address] Hematocrit (Bld) [Volume fraction] 40.5 % Normal 34.0-46.4 [facility] Comment on above: Performed By: #### C MP, PHOS #### [address] Hemoglobin (Bld) [Mass/Vol] 13.4 g/dL Normal 11.8-15.4 [facility] Comment on above: Performed By: #### C MP, PHOS #### [address] Lymphocytes (Bld) [#/Vol] 0.7 10*3/uL Low 1.00-4.8 [facility] Comment on above: Performed By: #### C MP, PHOS #### [address] Lymphocytes/100 WBC (Bld) 6.4 % Normal . [facility] Comment on above: Performed By: #### C MP, PHOS #### [address] MCH (RBC) [Entitic mass] 28.5 pg Normal 24.7-34.3 [facility] Comment on above: Performed By: #### C MP, PHOS #### [address] MCV (RBC) [Entitic vol] 86.4 fL Normal 80-100 [facility] Comment on above: Performed By: #### C MP, PHOS #### [address] Mean Corpuscular HGB Conc 33.0 g/dL Normal 32.0-35.0 [facility] Comment on above: Performed By: #### C MP, PHOS #### [place] [address] [place] Monocytes (Bld) [#/Vol] 0.7 10*3/uL Normal 0.0-0.8 [facility] Comment on above: Performed By: #### C MP, PHOS #### [place] [address] [place] Monocytes/100 WBC (Bld) 6.5 % Normal . [facility] Comment on above: Performed By: #### C MP, PHOS #### [address] Neutrophils (Bld) [#/Vol] 9.3 10*3/uL High 1.8-7.7 [facility] Comment on above: Performed By: #### C MP, PHOS #### [address] Neutrophils/100 WBC (Bld) 87.0 % Normal . [facility] Comment on above: Performed By: #### C MP, PHOS #### [address] NRBC% 0.1 /100{WBC} Normal 0-0.5 [facility] Comment on above: Performed By: #### C MP, PHOS #### [address] Platelet mean volume (Bld) [Entitic vol] 7.3 fL Normal 6.3-10.7 [facility] Comment on above: Performed By: #### C MP, PHOS #### [address] Platelets (Bld) [#/Vol] 302 10*3/uL Normal 150-450 [facility] Comment on above: Performed By: #### C MP, PHOS #### [address] RBC (Bld) [#/Vol] 4.68 10*6/uL Normal 3.60-5.00 [facility] Comment on above: Performed By: #### C MP, PHOS #### [address] WBC (Bld) [#/Vol] 10.6 10*3/uL Normal 3.8-11.6 [facility] Comment on above: Performed By: #### C MP, PHOS #### [address] Comprehensive Metabolic Pane ana 12-13-2024 Albumin [Mass/Vol] 3.8 g/dL Normal 3.5-5.7 [facility] Comment on above: Performed By: #### C MP, PHOS #### [address] [place] [address] [place] Albumin/Globulin [Mass ratio] 1.2 {ratio} Normal [facility] Comment on above: Performed By: #### C MP, PHOS #### [address] ALP [Catalytic activity/Vol] 84 U/L Normal 34-104 [facility] Comment on above: Performed By: #### C MP, PHOS #### [address] ALT [Catalytic activity/Vol] 65 U/L High 7-52 [facility] Comment on above: Performed By: #### C MP, PHOS #### [address] Anion gap [Moles/Vol] 14.3 mmol/L Normal 6.0-15.0 [facility] Comment on above: Performed By: #### C MP, PHOS #### [address] AST [Catalytic activity/Vol] 38 U/L Normal 13-39 [facility] Comment on above: Performed By: #### C MP, PHOS #### [address] Bilirubin [Mass/Vol] 0.5 mg/dL Normal 0.3-1.0 [facility] Comment on above: Performed By: #### C MP, PHOS #### [address] Calcium [Mass/Vol] 8.9 mg/dL Normal 8.6-10.3 [facility] Comment on above: Performed By: #### C MP, PHOS #### [address] Chloride [Moles/Vol] 95 mmol/L Low 98-107 [facility] Comment on above: Performed By: #### C MP, PHOS #### [address] CO2 [Moles/Vol] 30.8 mmol/L Normal 21.0-31.0 [facility] Comment on above: Performed By: #### C MP, PHOS #### [address] Creatinine [Mass/Vol] 0.99 mg/dL Normal 0.60-1.20 [facility] Comment on above: Performed By: #### C MP, PHOS #### [address] Creatinine Clr Calc Pharmacy 54.42 Normal [facility] Comment on above: Result Comment: PERF ORMED BY: [place] [address] PATHOLOGIST HOTEL OPERATION MANAGER MANDY ACUÑA M.D. Performed By: #### C ELDON, PHOS #### [address] GFR/1.73 sq M.predicted MDRD (S/P/Bld) [Vol rate/Area] mL/min/{1.73_m2} Normal [facility] Comment on above: Performed By: #### C ELDON, PHOS #### [address] Globulin (S) [Mass/Vol] 3.1 g/dL Normal [facility] Comment on above: Performed By: #### C ELDON, PHOS #### [address] Glucose [Mass/Vol] 97 mg/dL Normal 70-100 [facility] Comment on above: Result Comment: [place] Glucose Reference Range is dependent on time and content of last meal. Glucose of more than 200 mg/dL in a nonstressed, ambulatory subject supports the diagnosis of Diabetes Mellitus. ADA recommended reference range Performed By: #### C MP, PHOS #### [address] Potassium [Moles/Vol] 4.1 mmol/L Normal 3.5-5.1 [facility] Comment on above: Performed By: #### C MP, PHOS #### [address] [address] [place] Protein [Mass/Vol] 6.9 g/dL Normal 6.4-8.9 [facility] Comment on above: Performed By: #### C LUCY COLÓN #### [address] Sodium [Moles/Vol] 136 mmol/L Normal 136-145 [facility] Comment on above: Performed By: #### C ELDON, PHOS #### [address] Urea nitrogen [Mass/Vol] 22 mg/dL Normal 7-25 [facility] Comment on above: Performed By: #### C ELDON PHOS #### [address] Glucose Poct Glucometerson 0 12-13-2024 Commemt1 Glu2: Cleaned Meter Normal [facility] Comment on above: Result Comment: PERF ORMED BY: [place] [address] PATHOLOGIST HOTEL OPERATION MANAGER MANDY ACUÑA M.D. Performed By: #### G LULS #### Point of Care testing , Glucose [Mass/Vol] 277 mg/dL Normal [facility] Comment on above: Result Comment: [place] [facility] Glucose Reference Range is dependent on time and content of last meal. Glucose of more than 200 mg/dL in a nonstressed, ambulatory subject supports the diagnosis of Diabetes Mellitus. Performed By: #### G LULS #### Point of Care testing , Glucose [Mass/Vol] 141 mg/dL Normal [facility] Comment on above: Result Comment: [place] [facility] Glucose Reference Range is dependent on time and content of last meal. Glucose of more than 200 mg/dL in a nonstressed, ambulatory subject supports the diagnosis of Diabetes Mellitus. PERFORMED BY: [place] [address] PATHOLOGIST HOTEL OPERATION MANAGER MANDY ACUÑA M.D. Performed By: #### G LULS #### Point of Care testing , Glucose [Mass/Vol] 150 mg/dL Normal [facility] Comment on above: Result Comment: [facility] [place] Glucose Reference Range is dependent on time and content of last meal. Glucose of more than 200 mg/dL in a nonstressed, ambulatory subject supports the diagnosis of Diabetes Mellitus. PERFORMED BY: [place] [address] PATHOLOGIST HOTEL OPERATION MANAGER MANDY ACUÑA M.D. Performed By: #### G LULS ####Point of Care testing, Glucose [Mass/Vol] 117 mg/dL Normal [facility] Comment on above: Result Comment: [facility] [place] Glucose Reference Range is dependent on time and content of last meal. Glucose of more than 200 mg/dL in a nonstressed, ambulatory subject supports the diagnosis of Diabetes Mellitus. PERFORMED BY: [place] [address] PATHOLOGIST HOTEL OPERATION MANAGER MANDY ACUÑA M.D. Performed By: #### G LULS #### Point of Care testing , No Panel InformationOrdered By: Daniel Garza on 12-13-2024 Bedside Glucose Comment Glu2: cleaned meter [facility] Complete Blood Count Auto Di ffon 12-12-2024 Basophils (Bld) [#/Vol] 0.0 10*3/uL Normal 0.0-0.2 [facility] Comment on above: Result Comment: PERF ORMED BY: [place] [address] PATHOLOGIST HOTEL OPERATION MANAGER MANDY ACUÑA M.D. Performed By: #### C MP, PHOS #### [place] [address] [place] Basophils/100 WBC (Bld) 0.0 % Normal . [facility] Comment on above: Performed By: #### C MP, PHOS #### [address] Eosinophils (Bld) [#/Vol] 0.0 10*3/uL Normal 0.0-0.45 [facility] Comment on above: Performed By: #### C MP, PHOS #### [address] Eosinophils/100 WBC (Bld) 0.0 % Normal . [facility] Comment on above: Performed By: #### C MP, PHOS #### [address] Erythrocyte distribution width (RBC) [Ratio] 15.8 % High 11.9-15.3 [facility] Comment on above: Performed By: #### C ELDON, PHOS #### [address] Hematocrit (Bld) [Volume fraction] 34.5 % Normal 34.0-46.4 [facility] Comment on above: Performed By: #### C ELDON, PHOS #### [address] Hemoglobin (Bld) [Mass/Vol] 11.3 g/dL Low 11.8-15.4 [facility] Comment on above: Performed By: #### C ELDON, PHOS #### [address] Lymphocytes (Bld) [#/Vol] 0.3 10*3/uL Low 1.00-4.8 [facility] Comment on above: Performed By: #### C ELDON, PHOS #### [address] Lymphocytes/100 WBC (Bld) 2.2 % Normal . [facility] Comment on above: Performed By: #### C EDLON, PHOS #### [address] MCH (RBC) [Entitic mass] 28.0 pg Normal 24.7-34.3 [facility] Comment on above: Performed By: #### C ELDON, PHOS #### [address] MCV (RBC) [Entitic vol] 85.4 fL Normal 80-100 [facility] Comment on above: Performed By: #### C ELDON, PHOS #### [address] Mean Corpuscular HGB Conc 32.8 g/dL Normal 32.0-35.0 [facility] Comment on above: Performed By: #### C MP, PHOS #### [address] Monocytes (Bld) [#/Vol] 0.6 10*3/uL Normal 0.0-0.8 [facility] Comment on above: Performed By: #### C MP, PHOS #### [address] Monocytes/100 WBC (Bld) 4.8 % Normal . T abilio [facility] Comment on above: Performed By: #### C MP, PHOS #### [address] Neutrophils (Bld) [#/Vol] 10.8 10*3/uL High 1.8-7.7 [facility] Comment on above: Performed By: #### C MP, PHOS #### [address] Neutrophils/100 WBC (Bld) 93.0 % Normal . [facility] Comment on above: Performed By: #### C MP, PHOS #### [address] NRBC% 0.0 /100{WBC} Normal 0-0.5 [facility] Comment on above: Performed By: #### C MP, PHOS #### [place] [address] [place] Platelet mean volume (Bld) [Entitic vol] 7.4 fL Normal 6.3-10.7 [facility] Comment on above: Performed By: #### C MP, PHOS #### [place] [address] [place] Platelets (Bld) [#/Vol] 282 10*3/uL Normal 150-450 [facility] Comment on above: Performed By: #### C MP, PHOS #### [address] [place] [address] [place] RBC (Bld) [#/Vol] 4.04 10*6/uL Normal 3.60-5.00 [facility] Comment on above: Performed By: #### C MP, PHOS #### [facility] [address] WBC (Bld) [#/Vol] 11.6 10*3/uL Normal 3.8-11.6 [facility] Comment on above: Performed By: #### C MP, PHOS #### [address] Comprehensive Metabolic Pane ana 12-12-2024 Albumin [Mass/Vol] 3.6 g/dL Normal 3.5-5.7 [facility] Comment on above: Performed By: #### C ELDON, PHOS #### [address] Albumin/Globulin [Mass ratio] 1.3 {ratio} Normal [facility] Comment on above: Performed By: #### C ELDON, PHOS #### [address] ALP [Catalytic activity/Vol] 72 U/L Normal 34-104 [facility] Comment on above: Performed By: #### C ELDON, PHOS #### [address] ALT [Catalytic activity/Vol] 67 U/L High 7-52 [facility] Comment on above: Performed By: #### C MP, PHOS #### [address] Anion gap [Moles/Vol] 12.5 mmol/L Normal 6.0-15.0 [facility] Comment on above: Performed By: #### C MP, PHOS #### [address] AST [Catalytic activity/Vol] 41 U/L High 13-39 [facility] Comment on above: Performed By: #### C ELDON, PHOS #### [address] Bilirubin [Mass/Vol] 0.4 mg/dL Normal 0.3-1.0 [facility] Comment on above: Performed By: #### C ELDON, PHOS #### [address] Calcium [Mass/Vol] 8.3 mg/dL Low 8.6-10.3 [facility] Comment on above: Performed By: #### C ELDON, PHOS #### [address] Chloride [Moles/Vol] 101 mmol/L Normal 98-107 [facility] Comment on above: Performed By: #### C ELDON, PHOS #### [address] CO2 [Moles/Vol] 29.2 mmol/L Normal 21.0-31.0 [facility] Comment on above: Performed By: #### C ELDON, PHOS #### [address] Creatinine [Mass/Vol] 0.65 mg/dL Normal 0.60-1.20 [facility] Comment on above: Performed By: #### C ELDON, PHOS #### [address] Creatinine Clr Calc Pharmacy 67.88 Normal [facility] Comment on above: Performed By: #### C ELDON, PHOS #### [address] GFR/1.73 sq M.predicted MDRD (S/P/Bld) [Vol rate/Area] mL/min/{1.73_m2} Normal [facility] Comment on above: Performed By: #### C ELDON, PHOS #### [address] Globulin (S) [Mass/Vol] 2.7 g/dL Normal T [facility] Comment on above: Performed By: #### C ELDON, PHOS #### [place] [address] Glucose [Mass/Vol] 123 mg/dL High 70-100 [facility] Comment on above: Result Comment: [place] om Glucose Reference Range is dependent on time and content of last meal. Glucose of more than 200 mg/dL in a nonstressed, ambulatory subject supports the diagnosis of Diabetes Mellitus. ADA recommended reference range Performed By: #### C MP, PHOS #### [address] Potassium [Moles/Vol] 3.7 mmol/L Normal 3.5-5.1 [facility] Comment on above: Performed By: #### C MP, PHOS #### [address] Protein [Mass/Vol] 6.3 g/dL Low 6.4-8.9 [facility] Comment on above: Performed By: #### C MP, PHOS #### [place] [address] [place] Sodium [Moles/Vol] 139 mmol/L Normal 136-145 [facility] Comment on above: Performed By: #### C MP, PHOS #### [address] Urea nitrogen [Mass/Vol] 16 mg/dL Normal 7-25 [facility] Comment on above: Performed By: #### C MP, PHOS #### [address] Glucose Poct Glucometerson 0 12-12-2024 Commemt1 Glu2: Cleaned Meter Normal [facility] Comment on above: Result Comment: PERF ORMED BY: [place] [address] PATHOLOGIST HOTEL OPERATION MANAGER MANDY ACUÑA M.D. Performed By: #### G LULS ####Point of Care testing, Glucose [Mass/Vol] 114 mg/dL Normal [facility] Comment on above: Result Comment: [place] Glucose Reference Range is dependent on time and content of last meal. Glucose of more than 200 mg/dL in a nonstressed, ambulatory subject supports the diagnosis of Diabetes Mellitus. Performed By: #### G LULS ####Point of Care testing, Glucose [Mass/Vol] 107 mg/dL Normal [facility] Comment on above: Result Comment: [facility] Glucose Reference Range is dependent on time and content of last meal. Glucose of more than 200 mg/dL in a nonstressed, ambulatory subject supports the diagnosis of Diabetes Mellitus. PERFORMED BY: [address] [place] [address] PATHOLOGIST HOTEL OPERATION MANAGER MANDY ACUÑA M.D. Performed By: #### G LULS ####Point of Care testing, Glucose [Mass/Vol] 177 mg/dL Normal [facility] Comment on above: Result Comment: [facility] Glucose Reference Range is dependent on time and content of last meal. Glucose of more than 200 mg/dL in a nonstressed, ambulatory subject supports the diagnosis of Diabetes Mellitus. PERFORMED BY: [facility] [address] [place] [address] PATHOLOGIST HOTEL OPERATION MANAGER MANDY ACUÑA M.D. Performed By: #### G LULS ####Point of Care testing, Glucose [Mass/Vol] 150 mg/dL Normal [facility] Comment on above: Result Comment: [facility] Glucose Reference Range is dependent on time and content of last meal. Glucose of more than 200 mg/dL in a nonstressed, ambulatory subject supports the diagnosis of Diabetes Mellitus. PERFORMED BY: [facility] [address] [place] [address] PATHOLOGIST HOTEL OPERATION MANAGER MANDY ACUÑA M.D. Performed By: #### G LULS ####Point of Care testing, Phosphate [Mass/volume] in S idris or PlasmaOrdered By: Daniel Garza on 12-12-2024 Phosphate [Mass/Vol] Phosphate [Mass/volume] in Serum or Plasma Low 2.5-4.5 [facility] Phosphoruson 12-12-2024 Phosphate [Mass/Vol] 2.0 mg/dL Low 2.5-4.5 [facility] Comment on above: Result Comment: PERF ORMED BY: [address] [place] [id number] PATHOLOGIST HOTEL OPERATION MANAGER MANDY ACUÑA M.D. Performed By: #### C LUCY COLÓN #### [place] [id number] [facility] Arterial Blood Gason 025 ABG Base Excess -3.0 mmol/L Normal -3.0-3.0 [facility] Comment on above: Performed By: #### A BG ####Point of Care testing, ABG Frac Inspired O2 55 % Normal [facility] Comment on above: Performed By: #### A BG ####Point of Care testing, ABG Oxygen Content 6.9 mmol/L Normal 6.6-9.7 [facility] Comment on above: Performed By: #### A BG ####Point of Care testing, ABG Oxygen Saturation 98.1 % Normal 95.0-100.0 [facility] Comment on above: Performed By: #### A BG ####Point of Care testing, ABG PCO2 40.3 mm[Hg] Normal 35.0-45.0 [facility] Comment on above: Performed By: #### A BG ####Point of Care testing, ABG PEEP 8 cmH20 Normal [facility] Comment on above: Performed By: #### A BG ####Point of Care testing, ABG PH 7.36 Normal 7.35-7.45 [facility] Comment on above: Performed By: #### A BG ####Point of Care testing, ABG PO2 126.0 mm[Hg] Off scale high 80.0-100.0 [facility] Comment on above: Performed By: #### A BG ####Point of Care testing, ABG TV 420 mL Normal [facility] Comment on above: Performed By: #### A BG ####Point of Care testing, Respiratory Critical Normal [facility] Comment on above: Result Comment: Crit ical Value called on: 12/11/2024 at 04:26 PERFORMED BY: [address] [place] [id number] PATHOLOGIST HOTEL OPERATION MANAGER MANDY ACUÑA M.D. Performed By: #### A BG ####Point of Care testing, Set Respiratory Rate 18 Normal [facility] Comment on above: Performed By: #### A BG ####Point of Care testing, VBG Draw Site Left Radial Normal [facility] Comment on above: Performed By: #### A BG ####Point of Care testing, Ventilator Mode AC Normal [facility] Comment on above: Performed By: #### A BG ####Point of Care testing, Arterial Blood GasOrdered By : Daniel Garza on 12-11-2024 CO2 [Moles/Vol] 23.4 mmol/L Normal 23.0-27.0 [facility] Comment on above: Performed By: #### A BG ####Point of Care testing, HCO3 (Bld) [Moles/Vol] 22.2 mmol/L Low 23.0-29.0 [facility] Comment on above: Performed By: #### A BG ####Point of Care testing, Complete Blood Count Auto Di ffon 12-11-2024 Basophils (Bld) [#/Vol] 0.1 10*3/uL Normal 0.0-0.2 [facility] Comment on above: Result Comment: PERF ORMED BY: [address] [place] [address] PATHOLOGIST HOTEL OPERATION MANAGER MANDY ACUÑA M.D. Performed By: #### C BC, CMP, PHOS, MG ####[place] [id number] [place] [id number] [place] Basophils/100 WBC (Bld) 0.4 % Normal . T [facility] Comment on above: Performed By: #### C BC, CMP, PHOS, MG ####[place] [id number] [place] [phone] [facility] Eosinophils (Bld) [#/Vol] 0.0 10*3/uL Normal 0.0-0.45 [facility] Comment on above: Performed By: #### C BC, CMP, PHOS, MG ####[address] Eosinophils/100 WBC (Bld) 0.0 % Normal . [facility] Comment on above: Performed By: #### C BC, CMP, PHOS, MG ####[address] Erythrocyte distribution width (RBC) [Ratio] 16.3 % High 11.9-15.3 [facility] Comment on above: Performed By: #### C BC, CMP, PHOS, MG ####[address] Hematocrit (Bld) [Volume fraction] 32.9 % Low 34.0-46.4 [facility] Comment on above: Performed By: #### C BC, CMP, PHOS, MG ####[address] Hemoglobin (Bld) [Mass/Vol] 10.8 g/dL Low 11.8-15.4 [facility] Comment on above: Performed By: #### C BC, CMP, PHOS, MG ####[address] Lymphocytes (Bld) [#/Vol] 0.3 10*3/uL Low 1.00-4.8 [facility] Comment on above: Performed By: #### C BC, CMP, PHOS, MG ####[address] Lymphocytes/100 WBC (Bld) 1.7 % Normal . [facility] Comment on above: Performed By: #### C BC, CMP, PHOS, MG ####[address] MCH (RBC) [Entitic mass] 28.9 pg Normal 24.7-34.3 [facility] Comment on above: Performed By: #### C BC, CMP, PHOS, MG ####[address] [address] [place] MCV (RBC) [Entitic vol] 87.9 fL Normal 80-100 [facility] Comment on above: Performed By: #### C BC, CMP, PHOS, MG ####[address] Mean Corpuscular HGB Conc 32.9 g/dL Normal 32.0-35.0 [facility] Comment on above: Performed By: #### C BC, CMP, PHOS, MG ####[address] Monocytes (Bld) [#/Vol] 0.5 10*3/uL Normal 0.0-0.8 [facility] Comment on above: Performed By: #### C BC, CMP, PHOS, MG ####[address] Monocytes/100 WBC (Bld) 3.4 % Normal . T [facility] Comment on above: Performed By: #### C BC, CMP, PHOS, MG ####[address] Neutrophils (Bld) [#/Vol] 14.5 10*3/uL High 1.8-7.7 [facility] Comment on above: Performed By: #### C BC, CMP, PHOS, MG ####[address] Neutrophils/100 WBC (Bld) 94.5 % Normal . [facility] Comment on above: Performed By: #### C BC, CMP, PHOS, MG ####[address] NRBC% 0.0 /100{WBC} Normal 0-0.5 [facility] Comment on above: Performed By: #### C BC, CMP, PHOS, MG ####[address] Platelet mean volume (Bld) [Entitic vol] 7.2 fL Normal 6.3-10.7 [facility] Comment on above: Performed By: #### C BC, CMP, PHOS, MG ####[address] Platelets (Bld) [#/Vol] 244 10*3/uL Normal 150-450 [facility] Comment on above: Performed By: #### C BC, CMP, PHOS, MG ####[address] RBC (Bld) [#/Vol] 3.74 10*6/uL Normal 3.60-5.00 [facility] Comment on above: Performed By: #### C BC, CMP, PHOS, MG ####[address] WBC (Bld) [#/Vol] 15.4 10*3/uL High 3.8-11.6 [facility] Comment on above: Performed By: #### C BC, CMP, PHOS, MG ####[address] Comprehensive Metabolic Pane ana 12-11-2024 Albumin [Mass/Vol] 3.4 g/dL Low 3.5-5.7 [facility] Comment on above: Performed By: #### C BC, CMP, PHOS, MG ####[address] Albumin/Globulin [Mass ratio] 1.6 {ratio} Normal [facility] Comment on above: Performed By: #### C BC, CMP, PHOS, MG ####[address] ALP [Catalytic activity/Vol] 69 U/L Normal 34-104 [facility] Comment on above: Performed By: #### C BC, CMP, PHOS, MG ####[address] ALT [Catalytic activity/Vol] 76 U/L High 7-52 [facility] Comment on above: Performed By: #### C BC, CMP, PHOS, MG ####[place] [id number] [place] [id number] [facility] Anion gap [Moles/Vol] 11.6 mmol/L Normal 6.0-15.0 [facility] e [facility] Comment on above: Performed By: #### C BC, CMP, PHOS, MG ####[place] [id number] [facility] AST [Catalytic activity/Vol] 49 U/L High 13-39 [facility] Comment on above: Performed By: #### C BC, CMP, PHOS, MG ####[address] Bilirubin [Mass/Vol] 0.4 mg/dL Normal 0.3-1.0 [facility] Comment on above: Performed By: #### C BC, CMP, PHOS, MG ####[address] Calcium [Mass/Vol] 8.1 mg/dL Low 8.6-10.3 [facility] Comment on above: Performed By: #### C BC, CMP, PHOS, MG ####[address] Chloride [Moles/Vol] 105 mmol/L Normal 98-107 [facility] Comment on above: Performed By: #### C BC, CMP, PHOS, MG ####[address] CO2 [Moles/Vol] 23.7 mmol/L Normal 21.0-31.0 [facility] Comment on above: Performed By: #### C BC, CMP, PHOS, MG ####[place] [id number] [facility] Creatinine [Mass/Vol] 0.74 mg/dL Normal 0.60-1.20 [facility] Comment on above: Performed By: #### C BC, CMP, PHOS, MG ####[place] [phone] [facility] Creatinine Clr Calc Pharmacy 67.88 Normal [facility] Comment on above: Performed By: #### C BC, CMP, PHOS, MG ####[address] GFR/1.73 sq M.predicted MDRD (S/P/Bld) [Vol rate/Area] mL/min/{1.73_m2} Normal [facility] Comment on above: Performed By: #### C BC, CMP, PHOS, MG ####[address] Globulin (S) [Mass/Vol] 2.1 g/dL Normal T [facility] Comment on above: Performed By: #### C BC, CMP, PHOS, MG ####[address] Glucose [Mass/Vol] 134 mg/dL High 70-100 [facility] Comment on above: Result Comment: [facility] Glucose Reference Range is dependent on time and content of last meal. Glucose of more than 200 mg/dL in a nonstressed, ambulatory subject supports the diagnosis of Diabetes Mellitus. ADA recommended reference range Performed By: #### C BC, CMP, PHOS, MG ####[address] Potassium [Moles/Vol] 4.3 mmol/L Normal 3.5-5.1 [facility] Comment on above: Performed By: #### C BC, CMP, PHOS, MG ####[address] Protein [Mass/Vol] 5.5 g/dL Low 6.4-8.9 [facility] Comment on above: Performed By: #### C BC, CMP, PHOS, MG ####[address] Sodium [Moles/Vol] 136 mmol/L Significant change down 136-145 [facility] Comment on above: Performed By: #### C BC, CMP, PHOS, MG ####[address] Urea nitrogen [Mass/Vol] 21 mg/dL Normal 7-25 [facility] Comment on above: Performed By: #### C BC, CMP, PHOS, MG ####[place] [id number] [place] [phone] [facility] Glucose Poct Glucometerson 0 12-11-2024 Glucose [Mass/Vol] 132 mg/dL Normal [facility] Comment on above: Result Comment: [place] Glucose Reference Range is dependent on time and content of last meal. Glucose of more than 200 mg/dL in a nonstressed, ambulatory subject supports the diagnosis of Diabetes Mellitus. PERFORMED BY: [place] [address] PATHOLOGIST HOTEL OPERATION MANAGER MANDY ACUÑA M.D. Performed By: #### C MP, PHOS #### [place] [id number] [facility] Glucose [Mass/Vol] 123 mg/dL Normal [facility] Comment on above: Result Comment: [place] Glucose Reference Range is dependent on time and content of last meal. Glucose of more than 200 mg/dL in a nonstressed, ambulatory subject supports the diagnosis of Diabetes Mellitus. PERFORMED BY: [place] [address] PATHOLOGIST HOTEL OPERATION MANAGER MANDY ACUÑA M.D. Performed By: #### G LULS ####Point of Care testing, Magnesiumon 12-11-2024 Magnesium [Mass/Vol] 2.3 mg/dL Normal 1.9-2.7 [facility] Comment on above: Result Comment: PERF ORMED BY: [place] [address] PATHOLOGIST HOTEL OPERATION MANAGER MANDY ACUÑA M.D. Performed By: #### C BC, CMP, PHOS, MG ####[place] [phone] [facility] Magnesium [Mass/volume] in S idris or PlasmaOrdered By: Daniel Garza on 12-11-2024 Magnesium [Mass/Vol] Magnesium [Mass/volume] in Serum or Plasma 1.9-2.7 [facility] No Panel InformationOrdered By: Daniel Garza on 12-11-2024 Arterial Blood Base Excess -3.0 mmol/L -3.0-3.0 [facility] Arterial Blood Oxygen Content 6.9 mmol/L 6.6-9.7 [facility] Arterial Blood Oxygen Saturation 98.1 % 95.0-100.0 [facility] Arterial Blood Partial Pressure CO2 40.3 mm[Hg] 35.0-45.0 [facility] Arterial Blood Partial Pressure O2 126.0 mm[Hg] Critically high 80.0-100.0 [facility] Arterial Blood pH 7.36 7.35-7.45 [facility] Blood Gas Critical Value See comment [facility] Comment on above: Critical Value hope d on: 12/11/2024 at 04:26 Blood Gas PEEP 8 cmH2O [facility] Blood Gas Sample Site Left radial Fi [facility] Blood Gas Set Respiration Rate 18 [facility] Blood Gas Tidal Volume 420 mL Fi [facility] Blood Gas Ventilator Mode Ac [facility] FiO2 55 % [facility] Phosphoruson 12-11-2024 Phosphate [Mass/Vol] 2.6 mg/dL Normal 2.5-4.5 [facility] Comment on above: Performed By: #### C BC, CMP, PHOS, MG ####[facility] [id number] [place] [id number] [facility] Triglyceride [Mass/volume] i n Serum or PlasmaOrdered By: Soco Beasley on 12-11-2024 Triglyceride [Mass/Vol] Triglyceride [Mass/volume] in Serum or Plasma High 35-149 [facility] Comment on above: TRIG ATP III CLASSIF ICATIONTRIG less than 150 mg/dL NormalTRIG 150-199 mg/dL Borderline highTRIG 200-500 mg/dL High TRIG greater than 500 mg/dL Very highStandard traceable to the Center for Disease Conrtrol and Prevention (CDC) test method. Triglycerideson 12-11-2024 Triglyceride [Mass/Vol] 158 mg/dL High 35-149 [facility] Comment on above: Result Comment: TRIG ATP III CLASSIFICATION TRIG less than 150 mg/dL Normal TRIG 150-199 mg/dL Borderline high TRIG 200-500 mg/dL High TRIG greater than 500 mg/dL Very high Standard traceable to the Center for Disease Conrtrol and Prevention (CDC) test method. PERFORMED BY: [place] [address] PATHOLOGIST HOTEL OPERATION MANAGER MANDY ACUÑA M.D. Performed By: #### C MP, LAMARS #### [address] X-ray reportOrdered By: Roman Ugalde on 12-11-2024 Study report [facility] [place] [address] XRay Report Signed Patient: Julian Montaño MR#: [id number] : 1955 Acct:[id number] Age/Sex: 69 / F ADM Date: 5 Loc: Room: [address] [place] [address] Type: ADM IN Attending Dr: Daniel Garza [...] FINDINGS. Impression dictated by: Ryan Ugalde Jr., D.OLakeisha12/11/2024 8:33 AM Dictation Location: [place] [address] Transcribed By: [facility] 12/11/24832 Dictated By: Ryan Ugalde Jr, DO 12/11/24831 Signed By: 12/11/24 0833 [facility] XR chest 1V portableon 12-11 XR chest 1V portable [facility] Main [place] [id number] XRay Report Signed Patient: Julian Montaño MR#: [id number] : 1955 Acct:[id number] Age/Sex: 69 / F ADM Date: 12/09/24 Loc: Room: [address] [place] [address] Type: ADM IN Attending Dr: Daniel Garza [...] Ugalde Jr., D.O.12/11/2024 8:33 AM Dictation Location: [place] [address] Transcribed By: [facility] 12/11/24 0833 Dictated By: Ryan Ugalde Jr, DO 12/11/24 0832 Signed By: 12/11/24 0833 Normal [facility] Amphetamine Screen Ql (U)Ord ered By: Soco Beasley on 12-10-2024 Amphetamines Ql (U) Amphetamines screen Negativ e [facility] Arterial Blood Gason 025 ABG Base Excess -2.9 mmol/L Normal -3.0-3.0 [facility] Comment on above: Performed By: #### A BG ####Point of Care testing, ABG Frac Inspired O2 50 % Normal [facility] Comment on above: Performed By: #### A BG ####Point of Care testing, ABG Oxygen Content 6.8 mmol/L Normal 6.6-9.7 [facility] Comment on above: Performed By: #### A BG ####Point of Care testing, ABG Oxygen Saturation 97.3 % Normal 95.0-100.0 [facility] Comment on above: Performed By: #### A BG ####Point of Care testing, ABG PCO2 42.7 mm[Hg] Normal 35.0-45.0 [facility] Comment on above: Performed By: #### A BG ####Point of Care testing, ABG PEEP 5 cmH20 Normal [facility] Comment on above: Performed By: #### A BG ####Point of Care testing, ABG PH 7.34 Low 7.35-7.45 [facility] Comment on above: Performed By: #### A BG ####Point of Care testing, ABG PO2 99.2 mm[Hg] Normal 80.0-100.0 [facility] Comment on above: Performed By: #### A BG ####Point of Care testing, ABG TV 450 mL Normal [facility] Comment on above: Performed By: #### A BG ####Point of Care testing, CO2 [Moles/Vol] 24.0 mmol/L Normal 23.0-27.0 [facility] Comment on above: Performed By: #### A BG ####Point of Care testing, HCO3 (Bld) [Moles/Vol] 22.7 mmol/L Low 23.0-29.0 [facility] Comment on above: Performed By: #### A BG ####Point of Care testing, Respiratory Critical Normal [facility] Comment on above: Result Comment: Crit ical Value called on: 12/10/2024 at 06:05 PERFORMED BY: [place] [address] [place] [address] PATHOLOGIST HOTEL OPERATION MANAGER MANDY ACUÑA M.D. Performed By: #### A BG ####Point of Care testing, Set Respiratory Rate 18 Normal [facility] Comment on above: Performed By: #### A BG ####Point of Care testing, VBG Draw Site Left Radial Normal [facility] Comment on above: Performed By: #### A BG ####Point of Care testing, Ventilator Mode AC Normal [facility] Comment on above: Performed By: #### A BG ####Point of Care testing, ABG Base Excess -4.9 mmol/L Low -3.0-3.0 [facility] Comment on above: Performed By: #### C MP, PHOS #### [address] ABG Frac Inspired O2 60 % Normal [facility] Comment on above: Performed By: #### C MP, PHOS #### [address] ABG Oxygen Content 6.8 mmol/L Normal 6.6-9.7 [facility] Comment on above: Performed By: #### C MP, PHOS #### [address] ABG Oxygen Saturation 98.2 % Normal 95.0-100.0 [facility] Comment on above: Performed By: #### C MP, PHOS #### [address] ABG PCO2 47.5 mm[Hg] High 35.0-45.0 [facility] Comment on above: Performed By: #### C MP, PHOS #### [address] ABG PEEP 5 cmH20 Normal [facility] Comment on above: Performed By: #### C MP, PHOS #### [address] ABG PH 7.28 Low 7.35-7.45 [facility] Comment on above: Performed By: #### C MP, PHOS #### [address] ABG PO2 140.9 mm[Hg] Off scale high 80.0-100.0 [facility] Comment on above: Performed By: #### C MP, PHOS #### [address] ABG TV 500 mL Normal [facility] Comment on above: Performed By: #### C MP, PHOS #### [address] CO2 [Moles/Vol] 23.3 mmol/L Normal 23.0-27.0 [facility] Comment on above: Performed By: #### C ELDON, PHOS #### [address] HCO3 (Bld) [Moles/Vol] 21.8 mmol/L Low 23.0-29.0 [facility] Comment on above: Performed By: #### C MP, PHOS #### [address] Respiratory Critical Normal [facility] Comment on above: Result Comment: Crit ical Value called on: 12/10/2024 at 00:12 PERFORMED BY: [place] [address] PATHOLOGIST HOTEL OPERATION MANAGER MANDY ACUÑA M.D. Performed By: #### C MP, PHOS #### [address] Set Respiratory Rate 18 Normal [facility] Comment on above: Performed By: #### C MP, PHOS #### [address] VBG Draw Site Right Radial Normal [facility] Comment on above: Performed By: #### C MP, PHOS #### [address] Ventilator Mode AC Normal [facility] Comment on above: Performed By: #### C MP, PHOS #### [address] Barbiturates [Presence] in U rine by Screen methodOrdered By: Soco Beasley on 12-10-2024 Barbiturates Screen Ql (U) Barbiturates [Presence] in Urine by Screen method Negative [facility] Benzodiazepines Screen Ql (U )Ordered By: Soco Beasley on 12-10-2024 Benzodiazepines Ql (U) Benzodiazepines [Presence] in Urine by Screen method High Negative [facility] Benzoylecgonine [Presence] i n Urine by Screen methodOrdered By: Soco Beasley on 12-10-2024 Benzoylecgonine Screen Ql (U) Benzoylecgonine [Presence] in Urine by Screen method Negative [facility] Cannabinoids [Presence] in U rine by Screen methodOrdered By: Soco Beasley on 12-10-2024 Cannabinoids Screen Ql (U) Cannabinoids [Presence] in Urine by Screen method Negative [facility] Comment on above: These are unconfirme d results and should not be used for legal purposes. Drug Cut-Off Concentration: AMPH 1000 ng/mL MICHAEL 200 ng/mL JAVAN 200 ng/mL COCM 300 ng/mL OP 300 ng/mL PCP 25 ng/mL THC 20 ng/mL Complete Blood Count Auto Di ffon 12-10-2024 Basophils (Bld) [#/Vol] 0.1 10*3/uL Normal 0.0-0.2 [facility] Comment on above: Result Comment: PERF ORMED BY: [facility] [address] [place] [address] PATHOLOGIST HOTEL OPERATION MANAGER MANDY ACUÑA M.D. Performed By: #### C BC, CMP, MG ####[address] Basophils/100 WBC (Bld) 0.5 % Normal . T abilio [facility] Comment on above: Performed By: #### C BC, CMP, MG ####[address] Eosinophils (Bld) [#/Vol] 0.0 10*3/uL Normal 0.0-0.45 [facility] Comment on above: Performed By: #### C BC, CMP, MG ####[address] Eosinophils/100 WBC (Bld) 0.0 % Normal . [facility] Comment on above: Performed By: #### C BC, CMP, MG ####[address] Erythrocyte distribution width (RBC) [Ratio] 15.5 % High 11.9-15.3 [facility] Comment on above: Performed By: #### C BC, CMP, MG ####[address] Hematocrit (Bld) [Volume fraction] 31.0 % Low 34.0-46.4 [facility] Comment on above: Performed By: #### C BC, CMP, MG ####[address] Hemoglobin (Bld) [Mass/Vol] 10.1 g/dL Low 11.8-15.4 [facility] Comment on above: Performed By: #### C BC, CMP, MG ####[address] Lymphocytes (Bld) [#/Vol] 0.2 10*3/uL Low 1.00-4.8 [facility] Comment on above: Performed By: #### C BC, CMP, MG ####[address] Lymphocytes/100 WBC (Bld) 1.2 % Normal . [facility] Comment on above: Performed By: #### C BC, CMP, MG ####[address] MCH (RBC) [Entitic mass] 28.4 pg Normal 24.7-34.3 [facility] Comment on above: Performed By: #### C BC, CMP, MG ####[address] MCV (RBC) [Entitic vol] 86.7 fL Normal 80-100 T [facility] Comment on above: Performed By: #### C BC, CMP, MG ####[address] Mean Corpuscular HGB Conc 32.7 g/dL Normal 32.0-35.0 [facility] Comment on above: Performed By: #### C BC, CMP, MG ####[address] [place] [address] [place] Monocytes (Bld) [#/Vol] 0.5 10*3/uL Normal 0.0-0.8 [facility] Comment on above: Performed By: #### C BC, CMP, MG ####[address] Monocytes/100 WBC (Bld) 3.1 % Normal . T [facility] Comment on above: Performed By: #### C BC, CMP, MG ####[address] Neutrophils (Bld) [#/Vol] 14.4 10*3/uL High 1.8-7.7 [facility] Comment on above: Performed By: #### C BC, CMP, MG ####[address] Neutrophils/100 WBC (Bld) 95.2 % Normal . [facility] Comment on above: Performed By: #### C BC, CMP, MG ####[address] NRBC% 0.0 /100{WBC} Normal 0-0.5 [facility] Comment on above: Performed By: #### C BC, CMP, MG ####[address] Platelet mean volume (Bld) [Entitic vol] 7.0 fL Normal 6.3-10.7 [facility] Comment on above: Performed By: #### C BC, CMP, MG ####[address] Platelets (Bld) [#/Vol] 236 10*3/uL Normal 150-450 [facility] Comment on above: Performed By: #### C BC, CMP, MG ####[address] RBC (Bld) [#/Vol] 3.57 10*6/uL Low 3.60-5.00 [facility] Comment on above: Performed By: #### C BC, CMP, MG ####[place] [address] [place] [address] [facility] WBC (Bld) [#/Vol] 15.2 10*3/uL High 3.8-11.6 [facility] Comment on above: Performed By: #### C BC, CMP, MG ####[address] [address] [facility] Comprehensive Metabolic Pane ana 12-10-2024 Albumin [Mass/Vol] 3.4 g/dL Low 3.5-5.7 [facility] Comment on above: Performed By: #### C BC, CMP, MG ####[place] [id number] [facility] Albumin/Globulin [Mass ratio] 1.5 {ratio} Normal [facility] Comment on above: Performed By: #### C BC, CMP, MG ####[place] [id number] [facility] ALP [Catalytic activity/Vol] 69 U/L Normal 34-104 [facility] Comment on above: Performed By: #### C BC, CMP, MG ####[place] [id number] [facility] ALT [Catalytic activity/Vol] 71 U/L High 7-52 [facility] Comment on above: Performed By: #### C BC, CMP, MG ####[place] [id number] [facility] Anion gap [Moles/Vol] 10.3 mmol/L Normal 6.0-15.0 [facility] e [facility] Comment on above: Performed By: #### C BC, CMP, MG ####[place] [id number] [facility] AST [Catalytic activity/Vol] 50 U/L High 13-39 [facility] Comment on above: Performed By: #### C BC, CMP, MG ####[place] [id number] [facility] Bilirubin [Mass/Vol] 0.4 mg/dL Normal 0.3-1.0 [facility] Comment on above: Performed By: #### C BC, CMP, MG ####[place] [address] Calcium [Mass/Vol] 7.0 mg/dL Low 8.6-10.3 [facility] Comment on above: Performed By: #### C BC, CMP, MG ####[place] [address] Chloride [Moles/Vol] 101 mmol/L Normal 98-107 [facility] Comment on above: Performed By: #### C BC, CMP, MG ####[place] [address] CO2 [Moles/Vol] 22.0 mmol/L Normal 21.0-31.0 [facility] Comment on above: Performed By: #### C BC, CMP, MG ####[address] Creatinine [Mass/Vol] 0.64 mg/dL Normal 0.60-1.20 [facility] Comment on above: Performed By: #### C BC, CMP, MG ####[place] [address] [place] Creatinine Clr Calc Pharmacy 69.14 Normal [facility] Comment on above: Performed By: #### C BC, CMP, MG ####[place] [id number] [facility] GFR/1.73 sq M.predicted MDRD (S/P/Bld) [Vol rate/Area] mL/min/{1.73_m2} Normal [facility] Comment on above: Performed By: #### C BC, CMP, MG ####[address] Globulin (S) [Mass/Vol] 2.2 g/dL Normal T [facility] Comment on above: Performed By: #### C BC, CMP, MG ####[address] Glucose [Mass/Vol] 151 mg/dL High 70-100 [facility] Comment on above: Result Comment: [place] Glucose Reference Range is dependent on time and content of last meal. Glucose of more than 200 mg/dL in a nonstressed, ambulatory subject supports the diagnosis of Diabetes Mellitus. ADA recommended reference range Performed By: #### C BC, CMP, MG ####[place] [address] [place] [id number] [facility] Potassium [Moles/Vol] 3.3 mmol/L Low 3.5-5.1 [facility] Comment on above: Performed By: #### C BC, CMP, MG ####[place] [address] [place] [id number] [facility] Protein [Mass/Vol] 5.6 g/dL Low 6.4-8.9 [facility] Comment on above: Performed By: #### C BC, CMP, MG ####[address] Sodium [Moles/Vol] 130 mmol/L Low 136-145 [facility] Comment on above: Performed By: #### C BC, CMP, MG ####[place] [address] [facility] Urea nitrogen [Mass/Vol] 14 mg/dL Normal 7-25 [facility] Comment on above: Performed By: #### C BC, CMP, MG ####[place] [id number] [facility] Drug Screen,Urineon 12-10-19 25 Amphetamine Screen,Urine Negative Normal Negative [facility] Comment on above: Performed By: #### U RDS ####[address] [address] [place] Barbiturate Screen,Urine Negative Normal Negative [facility] Comment on above: Performed By: #### U RDS ####[address] [address] [facility] Benzodiazepines Screen,Urine Positive High Negative [facility] Comment on above: Performed By: #### U RDS ####[address] [address] [facility] Cannabinoid Screen,Urine Negative Normal Negative [facility] Comment on above: Result Comment: Thes e are unconfirmed results and should not be used for legal purposes. Drug Cut-Off Concentration: AMPH 1000 ng/mL MICHAEL 200 ng/mL JAVAN 200 ng/mL COCM 300 ng/mL OP 300 ng/mL PCP 25 ng/mL THC 20 ng/mL PERFORMED BY: [place] [address] PATHOLOGIST HOTEL OPERATION MANAGER MANDY ACUÑA M.D. Performed By: #### U RDS ####[address] Cocaine Screen,Urine Negative Normal Negative [facility] Comment on above: Performed By: #### U RDS ####[address] Opiate Screen,Urine Positive High Negative [facility] Comment on above: Performed By: #### U RDS ####[address] Phencyclidine Screen,Urine Negative Normal Negative [facility] Comment on above: Performed By: #### U RDS ####[address] ECH echo transthoracicon [facility] echo transthoracic [facility] Main [place] [address] [place] [address] Echocardiogram Signed Patient: Julian Montaño MR#: [id number] 27 : 1955 Acct:[id number] Age/Sex: 69 / F ADM Date: 12/09/24 Loc: Room: [address] [place] [address] Type: ADM IN Attending Dr: Daniel Garza MD Ordering Provider: Krissy Cortez MD Date of Service: 12/10/24 ECH/ECH echo transthoracic: Elevated troponin Copies to: MD [...] 1142 Signed By: Gildardo Pastor MD 12/10/24 1712 Normal [facility] Glucose Poct Glucometerson 0 12-10-2024 Glucose [Mass/Vol] 135 mg/dL Normal [facility] Comment on above: Result Comment: [place] Glucose Reference Range is dependent on time and content of last meal. Glucose of more than 200 mg/dL in a nonstressed, ambulatory subject supports the diagnosis of Diabetes Mellitus. PERFORMED BY: [place] [phone] PATHOLOGIST HOTEL OPERATION MANAGER MANDY ACUÑA M.D. Performed By: #### C MP, PHOS #### [facility] [address] [place] [address] Magnesiumon 12-10-2024 Magnesium [Mass/Vol] 1.7 mg/dL Low 1.9-2.7 [facility] Comment on above: Result Comment: PERF ORMED BY: [place] [phone] PATHOLOGIST HOTEL OPERATION MANAGER MANDY ACUÑA M.D. Performed By: #### C BC, CMP, MG ####[facility] [address] [place] [address] Opiates [Presence] in Urine by Screen methodOrdered By: Soco Beasley on 12-10-2024 Opiates Screen Ql (U) Opiates [Presence] in Urine by Screen method High Negative [facility] Phencyclidine Screen Ql (U)O rdered By: Soco Beasley on 12-10-2024 Phencyclidine Ql (U) Phencyclidine [Presence] in Urine by Screen method Negative [facility] Troponin I High Sensitivityo n 12-10-2024 Troponin I High Sensitivity 1309 Off scale high 0-15 [facility] Comment on above: Result Comment: Crit ical Result : Called to and read back by: VIOLA KAY at: 12/10/2024 07:21:46 by:CELESTINA The Troponin units of report have been changed to meet the Chest Pain Accreditation requirement, element EC5.M1l2. Troponin units are changed from pg/ml to ng/L. Also, the decimal is removed and results are in whole numbers. PERFORMED BY: [place] [address] PATHOLOGIST HOTEL OPERATION MANAGER MANDY ACUÑA M.D. Performed By: #### C ELDON, LUCY #### [address] Troponin I.cardiac [Mass/vol ume] in Serum or Plasma by Detection limit <= 0.01 ng/Ordered By: Soco Beasley on 12-10-2024 Troponin I.cardiac DL <= 0.01 ng/mL [Mass/Vol] Troponin I.cardiac [Mass/volume] in Serum or Plasma by Detection limit <= 0.01 ng/ Critically high 0-15 [facility] Comment on above: Critical Result : [...] By: Roman Ugalde on 12-10-2024 Study report [facility] Main [place] [address] [place] [address] XRay Report Signed Patient: Julian Montaño MR#: [id number] : 1955 Acct:[id number] Age/Sex: 69 / F ADM Date: 5 Loc: Room: [address] [place] [address] Type: ADM IN Attending Dr: Soco Beasley MD Copies to: Soco Beasley MD~ Ordering Provider: Soco Beasley MD Date of Service: 12/10/24 XR/XR chest 1V portable: Intubated SINGLE VIEW CHEST CLINICAL HISTORY: Transfer from [place]. Following responsive. COMPARISON: Chest 12/09/2024 FINDINGS: Enteric tube tip below the level of the diaphragm. ET tube in satisfactory position. Heart appears normal in size. Bibasilar atelectasis/interstit ial changes. No consolidation pneumothorax pleural effusion or free air. XR/XR chest 1V portable IMPRESSION: TUBES IN SATISFACTORY POSITIONS. BIBASILAR ATELECTASIS/INTERSTIT IAL CHANGES. Impression dictated by: Ryan Ugalde Jr., D.O.12/10/2024 9:13 AM Dictation Location: RADIO-PC-23 Transcribed By: PWS 12/10/2413 Dictated By: Ryan Ugalde Jr, DO 12/10/24911 Signed By: 12/10/24912 [facility] Study report [facility] [place] [address] XRay Report Signed Patient: Julian Montaño MR#: [id number] : 1955 Acct:[id number] Age/Sex: 69 / F ADM Date: 5 Loc: Room: [address] [place] [address] Type: ADM IN Attending Dr: Soco Beasley [...] STOMACH. Impression dictated by: Ryan Ugalde Jr., D.O.12/10/2024 8:33 AM Dictation Location: RADIO-PC-23 Transcribed By: PWS 12/10/24 0833 Dictated By: Ryan Ugalde Jr, 12/10/2431 Signed By: 12/10/24 0833 [facility] X-ray reportOrdered By: [facility] on 12-10-2024 Study report [facility] Main [address] [address] XRay Report Signed Patient: Julian Montaño MR#: [id number] : 1955 Acct:[id number] Age/Sex: 69 / F ADM Date: 5 Loc: 4C Room: [address] [place] [address] Type: ADM IN Attending Dr: Soco Beasley [...] Torsten Toledo M.D.12/10/2024 8:31 AM Dictation Location: [place] [address] Transcribed By: [facility] 12/10/24830 Dictated By: Torsten Toledo MD 12/10/2429 Signed By: 12/10/2431 [facility] Work Phone: XR abdomen 1Von 12-10-2024 XR abdomen 1V [address] [address] XRay Report Signed Patient: Julian Montaño MR#: [id number] [birth year] : 1955 Acct:[id number] Age/Sex: 69 / F ADM Date: 12/09/24 Loc: Room: [address] [place] [address] Type: ADM IN Attending Dr: Soco Beasley [...] STOMACH. Impression dictated by: Ryan Ugalde Jr., Tuan12/10/2024 8:33 AM Dictation Location: [place] [address] Transcribed By: [facility] 12/10/24 0833 Dictated By: Ryan Ugalde Jr, DO 12/10/24 0831 Signed By: 12/10/24 0833 Normal [facility] XR chest 1V portableon 12-10 XR chest 1V portable [facility] [place] [address] XRay Report Signed Patient: Julian Montaño MR#: [id number] [birth year] : 1955 Acct:[id number] Age/Sex: 69 / F ADM Date: 12/09/24 Loc: Room: [address] [place] [address] Type: ADM IN Attending Dr: Soco Beasley MD Copies to: Soco Beasley MD Ordering Provider: Soco Beasley MD Date of Service: 12/10/24 XR/XR chest 1V portable: Intubated SINGLE VIEW CHEST CLINICAL HISTORY: Transfer from [place]. Following responsive. COMPARISON: Chest 12/09/2024 FINDINGS: Enteric tube tip below the level of the diaphragm. ET tube in satisfactory position. Heart appears normal in size. Bibasilar atelectasis/interstit ial changes. No consolidation pneumothorax pleural effusion or free air. XR/XR chest 1V portable IMPRESSION: TUBES IN SATISFACTORY POSITIONS. BIBASILAR ATELECTASIS/INTERSTIT IAL CHANGES. Impression dictated by: Ryan Ugalde Jr., MeganOLakeisha12/10/2024 9:13 AM Dictation Location: RADIO-PC-23 Transcribed By: [facility] 12/10/24912 Dictated By: Ryan Ugalde Jr, DO 12/10/24911 Signed By: 12/10/24912 Normal [facility] XR chest 1V portable [facility] Main [address] [address] XRay Report Signed Patient: Julian Montaño MR#: [id number] [birth year] : 1955 Acct:[id number] Age/Sex: 69 / F ADM Date: 12/09/24 Loc: Room: [address] [place] [address] Type: ADM IN Attending Dr: Soco Beasley [...] Torsten Toledo M.D.12/10/2024 8:31 AM Dictation Location: RADIO-PC-26 Transcribed By: [facility] 12/10/24 0831 Dictated By: Torsten Toledo MD 12/10/2429 Signed By: 12/10/24830 Normal [facility] Aerobic Cultureon 12-09-2024 Aerobic Culture Light Normal Respiratory Chase 2 Days Gram Stain Result 3+ White Blood Cells Rare Epithelial Cells 4+ Gram Positive Cocci in Chains AND PAIRS PERFORMED BY: [place] [id number] PATHOLOGIST HOTEL OPERATION MANAGER MANDY ACUÑA M.D. Normal [facility] Comment on above: Performed By: #### C MP PHOS #### [address] Aerobic cultureOrdered By: James Beasley on 12-09-2024 Bacteria identified Aer cx Nom (Unsp spec) Aerobic culture [facility] Anisocytosis LM Ql (Bld)Orde red By: Soco Beasley on 12-09-2024 Anisocytosis Ql (Bld) Anisocytosis [Presence] in Blood by Light microscopy [facility] Arterial Blood Gason 025 ABG Base Excess -4.7 mmol/L Low -3.0-3.0 [facility] Comment on above: Performed By: #### A BG ####Point of Care testing, ABG Frac Inspired O2 40 % Normal [facility] Comment on above: Performed By: #### A BG ####Point of Care testing, ABG Oxygen Content 6.5 mmol/L Low 6.6-9.7 [facility] Comment on above: Performed By: #### A BG ####Point of Care testing, ABG Oxygen Saturation 90.5 % Low 95.0-100.0 [facility] Comment on above: Performed By: #### A BG ####Point of Care testing, ABG PCO2 57.0 mm[Hg] Off scale high 35.0-45.0 [facility] Comment on above: Performed By: #### A BG ####Point of Care testing, ABG PEEP 5 cmH20 Normal [facility] Comment on above: Performed By: #### A BG ####Point of Care testing, ABG PH 7.23 Low 7.35-7.45 [facility] Comment on above: Performed By: #### A BG ####Point of Care testing, ABG PO2 66.7 mm[Hg] Low 80.0-100.0 [facility] Comment on above: Performed By: #### A BG ####Point of Care testing, ABG TV 450 mL Normal [facility] Comment on above: Performed By: #### A BG ####Point of Care testing, CO2 [Moles/Vol] 25.1 mmol/L Normal 23.0-27.0 [facility] Comment on above: Performed By: #### A BG ####Point of Care testing, HCO3 (Bld) [Moles/Vol] 23.3 mmol/L Normal 23.0-29.0 [facility] Comment on above: Performed By: #### A BG ####Point of Care testing, Respiratory Critical Normal [facility] Comment on above: Result Comment: Crit ical Value called on: 12/09/2024 at 21:27 PERFORMED BY: [place] [address] PATHOLOGIST HOTEL OPERATION MANAGER MANDY ACUÑA M.D. Performed By: #### A BG ####Point of Care testing, Set Respiratory Rate 14 Normal [facility] Comment on above: Performed By: #### A BG ####Point of Care testing, VBG Draw Site Left Radial Normal [facility] Comment on above: Performed By: #### A BG ####Point of Care testing, Ventilator Mode AC Normal [facility] Comment on above: Performed By: #### A BG ####Point of Care testing, Band form neutrophils/100 WB C Manual cnt (Bld)Ordered By: Soco Beasley on 12-09-2024 Band form neutrophils/100 WBC (Bld) Peripheral white blood cell differential % bands, microscopic exam High 0-5 [facility] Blood Cultureon 12-09-2024 Bacteria identified Cx Nom (Bld) NO GROWTH 5 DAYS PERFORMED BY: [place] [address] PATHOLOGIST HOTEL OPERATION MANAGER MANDY ACUÑA M.D. Normal [facility] Comment on above: Performed By: #### C MP, PHOS #### [address] Bacteria identified Cx Nom (Bld) NO GROWTH 5 DAYS PERFORMED BY: [place] [phone] PATHOLOGIST HOTEL OPERATION MANAGER MANDY ACUÑA M.D. Normal [facility] Comment on above: Performed By: #### C ELDON, PHOS #### [address] Flor[place] cells [Presence] in Blo od by Light microscopyOrdered By: Soco Beasley on 12-09-2024 [place] cells LM Ql (Bld) Florinda cells [Prese nce] in Blood by Light microscopy [facility] Comprehensive Metabolic Pane ana 12-09-2024 Albumin [Mass/Vol] 3.6 g/dL Normal 3.5-5.7 [facility] Comment on above: Performed By: #### C ELDON, PHOS #### [address] Albumin/Globulin [Mass ratio] 1.6 {ratio} Normal [facility] Comment on above: Performed By: #### C MP, PHOS #### [address] ALP [Catalytic activity/Vol] 78 U/L Normal 34-104 [facility] Comment on above: Result Comment: PERF ORMED BY: [place] [address] PATHOLOGIST HOTEL OPERATION MANAGER MANDY ACUÑA M.D. Performed By: #### C MP, PHOS #### [address] ALT [Catalytic activity/Vol] 82 U/L High 7-52 [facility] Comment on above: Performed By: #### C MP, PHOS #### [address] Anion gap [Moles/Vol] 8.6 mmol/L Normal 6.0-15.0 [facility] Comment on above: Performed By: #### C MP, PHOS #### [address] AST [Catalytic activity/Vol] 61 U/L High 13-39 [facility] Comment on above: Performed By: #### C MP, PHOS #### [facility] [address] [place] [address] [place] Bilirubin [Mass/Vol] 0.4 mg/dL Normal 0.3-1.0 [facility] Comment on above: Performed By: #### C MP, PHOS #### [facility] [address] [place] [address] [place] Calcium [Mass/Vol] 7.1 mg/dL Low 8.6-10.3 [facility] Comment on above: Performed By: #### C MP, PHOS #### [facility] [address] [place] [address] [place] Chloride [Moles/Vol] 97 mmol/L Low 98-107 [facility] Comment on above: Performed By: #### C MP, PHOS #### [facility] [address] [place] [address] [place] CO2 [Moles/Vol] 24.6 mmol/L Normal 21.0-31.0 [facility] Comment on above: Performed By: #### C MP, PHOS #### [facility] [address] [place] [address] [place] Creatinine [Mass/Vol] 0.68 mg/dL Normal 0.60-1.20 [facility] Comment on above: Performed By: #### C MP, PHOS #### [facility] [address] [place] [address] [place] GFR/1.73 sq M.predicted MDRD (S/P/Bld) [Vol rate/Area] mL/min/{1.73_m2} Normal [facility] Comment on above: Performed By: #### C MP, PHOS #### [facility] [address] [place] [address] [place] Globulin (S) [Mass/Vol] 2.3 g/dL Normal T [facility] Comment on above: Performed By: #### C MP, PHOS #### [facility] [address] [place] [address] [place] Glucose [Mass/Vol] 186 mg/dL High 70-100 [facility] Comment on above: Result Comment: [facility] Glucose Reference Range is dependent on time and content of last meal. Glucose of more than 200 mg/dL in a nonstressed, ambulatory subject supports the diagnosis of Diabetes Mellitus. ADA recommended reference range Performed By: #### C MP, PHOS #### [address] Potassium [Moles/Vol] 3.2 mmol/L Low 3.5-5.1 [facility] Comment on above: Performed By: #### C MP, PHOS #### [address] Protein [Mass/Vol] 5.9 g/dL Low 6.4-8.9 [facility] Comment on above: Performed By: #### C MP, PHOS #### [address] Sodium [Moles/Vol] 127 mmol/L Low 136-145 [facility] Comment on above: Performed By: #### C MP, PHOS #### [address] Urea nitrogen [Mass/Vol] 16 mg/dL Normal 7-25 [facility] Comment on above: Performed By: #### C MP, PHOS #### [address] Diff and CBCon 12-09-2024 Anisocytosis Ql (Bld) Slight Normal [facility] Comment on above: Performed By: #### C MP, PHOS #### [address] Band form neutrophils/100 WBC (Bld) 27 % High 0-5 [facility] Comment on above: Performed By: #### C MP, PHOS #### [address] Crenated RBC Slight Normal [facility] Comment on above: Performed By: #### C MP, PHOS #### [address] Erythrocyte distribution width (RBC) [Ratio] 15.4 % High 11.9-15.3 [facility] Comment on above: Performed By: #### C MP, PHOS #### [address] Hematocrit (Bld) [Volume fraction] 33.0 % Low 34.0-46.4 [facility] Comment on above: Performed By: #### C MP, PHOS #### [address] Hemoglobin (Bld) [Mass/Vol] 10.7 g/dL Low 11.8-15.4 [facility] Comment on above: Performed By: #### C MP, PHOS #### [address] Lymphocytes/100 WBC (Bld) 0 % Low 18-42 [facility] Comment on above: Performed By: #### C MP, PHOS #### [address] MCH (RBC) [Entitic mass] 28.1 pg Normal 24.7-34.3 [facility] Comment on above: Performed By: #### C MP, PHOS #### [address] MCV (RBC) [Entitic vol] 87.0 fL Normal 80-100 [facility] Comment on above: Performed By: #### C MP, PHOS #### [address] Mean Corpuscular HGB Conc 32.3 g/dL Normal 32.0-35.0 [facility] Comment on above: Performed By: #### C MP, PHOS #### [address] Microcytosis Slight Normal [facility] Comment on above: Performed By: #### C MP, PHOS #### [address] Monocytes/100 WBC (Bld) 2 % Normal 2-11 [facility] Comment on above: Performed By: #### C MP, PHOS #### [address] Platelet Estimate Normal Normal Normal [facility] Comment on above: Performed By: #### C MP, PHOS #### [address] Platelet mean volume (Bld) [Entitic vol] 6.9 fL Normal 6.3-10.7 [facility] Comment on above: Result Comment: PERF ORMED BY: [place] [address] PATHOLOGIST HOTEL OPERATION MANAGER MANDY ACUÑA M.D. Performed By: #### C MP, PHOS #### [address] Platelet Morphology Normal Normal Normal [facility] Comment on above: Result Comment: PERF ORMED BY: [place] [address] PATHOLOGIST HOTEL OPERATION MANAGER MANDY ACUÑA M.D. Performed By: #### C MP, PHOS #### [address] Platelets (Bld) [#/Vol] 236 10*3/uL Normal 150-450 [facility] Comment on above: Performed By: #### C MP, PHOS #### [address] Poikilocytosis Slight Normal [facility] Comment on above: Performed By: #### C MP, PHOS #### [address] Polychromasia Slight Normal [facility] Comment on above: Performed By: #### C MP, PHOS #### [address] RBC (Bld) [#/Vol] 3.80 10*6/uL Normal 3.60-5.00 [facility] Comment on above: Performed By: #### C MP, PHOS #### [address] [place] [address] [place] Segmented neutrophils/100 WBC (Bld) 71 % High 50-70 [facility] Comment on above: Performed By: #### C LUCY COLÓN #### [address] WBC (Bld) [#/Vol] 15.9 10*3/uL High 3.8-11.6 [facility] Comment on above: Performed By: #### C ELDON PHOS #### [address] ECG 12 lead ECGon 12-09-2024 ECG 12 lead ECG [facility] [place] [address] [place] [address] Electrocardiograph Report Signed Patient: Julian Montaño MR#: [id number] 27 : 1955 Acct:[id number] Age/Sex: 69 / F ADM Date: 12/09/24 Loc: Room: [address] [place] [address] Type: ADM IN Attending Dr: Daniel Garza [...] block Abnormal ECG Confirmed by Krissy Cortez ([id number]) on 12/12/2024 12:01:02 AM Referred By: Electronically Signed By: Krissy Cortez Transcribed By: MUS Signed By Krissy Cortez MD 5 0001 Normal [facility] Erythrocyte morphology findi ng [Identifier] in BloodOrdered By: Soco Beasley on 12-09-2024 RBC morphology finding Nom (Bld) RBC morphology [facility] Gram Stainon 12-09-2024 Microscopic observation Gram stain Nom (Unsp spec) Gram Stain Result 3+ White Blood Cells Rare Epithelial Cells 4+ Gram Positive Cocci in Chains AND PAIRS PERFORMED BY: [place] [id number] PATHOLOGIST HOTEL OPERATION MANAGER MANDY ACUÑA M.D. Normal [facility] Comment on above: Performed By: #### C ELDON, PHOS #### [facility] [address] [place] [address] [facility] Gram stain microscopyOrdered By: Soco Beasley on 12-09-2024 Microscopic observation Gram stain Nom (Unsp spec) Gram stain microscopy [facility] - Microbiology an d Antimicrobial susceptibilityOrdered By: Soco Beasley on 12-09-2024 Bacteria identified Cx Nom (Bld) NO GROWTH 5 DAYS [facility] Bacteria identified Cx Nom (Bld) NO GROWTH 5 DAYS [facility] Lactate [Moles/volume] in Se rum or PlasmaOrdered By: Soco Beasley on 12-09-2024 Lactate [Moles/Vol] Lactate [Moles/volume] in Serum or Plasma 0.5-1.9 [facility] Comment on above: Lactic Acid referenc e range has been updated to 0.5 1.9 mmol/L and the critical range of 2.0 or greater. Lactic Acidon 12-09-2024 Lactate [Moles/Vol] 1.4 mmol/L Normal 0.5-1.9 [facility] Comment on above: Result Comment: Lact ic Acid reference range has been updated to 0.5 ? 1.9 mmol/L and the critical range of 2.0 or greater. PERFORMED BY: [place] [id number] PATHOLOGIST HOTEL OPERATION MANAGER MANDY ACUÑA M.D. Performed By: #### C ELDON, PHOS #### [facility] [address] [place] [id number] [facility] Lactate [Moles/Vol] 1.3 mmol/L Normal 0.5-1.9 [facility] Comment on above: Result Comment: Lact ic Acid reference range has been updated to 0.5 ? 1.9 mmol/L and the critical range of 2.0 or greater. PERFORMED BY: [place] [id number] PATHOLOGIST HOTEL OPERATION MANAGER MANDY ACUÑA M.D. Performed By: #### C LUCY COLÓN #### [facility] [address] Lymphocytes/100 WBC Manual c nt (Bld)Ordered By: Soco Beasley on 12-09-2024 Lymphocytes/100 WBC (Bld) Lymphocytes/100 leukocytes in Blood by Manual count Low 18-42 [facility] Microcytes LM Ql (Bld)Ordere d By: Soco Beasley on 12-09-2024 Microcytes Ql (Bld) Microcytes [Presence ] in Blood by Light microscopy [facility] Monocytes/100 WBC Manual cnt (Bld)Ordered By: Soco Baesley on 12-09-2024 Monocytes/100 WBC (Bld) Monocytes/100 leukocytes in Blood by Manual count 2-11 [facility] Platelet adequacy [Presence] in Blood by Light microscopyOrdered By: Soco Beasley on 12-09-2024 Platelets LM Ql (Bld) Platelet adequacy [Presence] in Blood by Light microscopy Normal [facility] Platelet morphology finding [Identifier] in BloodOrdered By: Soco Beasley on 12-09-2024 Platelet morphology finding Nom (Bld) Platelet morphology finding [Identifier] in Blood [facility] Poikilocytosis [Presence] in Blood by Light microscopyOrdered By: Soco Beasley on 12-09-2024 Poikilocytosis LM Ql (Bld) Poikilocytosis [Presence] in Blood by Light microscopy [facility] Polychromasia [Presence] in Blood by Light microscopyOrdered By: Soco Beasley on 12-09-2024 Polychromasia LM Ql (Bld) Polychromasia [Presence] in Blood by Light microscopy [facility] Segmented neutrophils/100 WB C Manual cnt (Bld)Ordered By: Soco Beasley on 12-09-2024 Segmented neutrophils/100 WBC (Bld) Manual blood segmented neutrophils/100 leukocytes High 50-70 [facility] Triglycerideson 12-09-2024 Triglyceride [Mass/Vol] 63 mg/dL Normal 35-149 T [facility] Comment on above: Result Comment: TRIG ATP III CLASSIFICATION TRIG less than 150 mg/dL Normal TRIG 150-199 mg/dL Borderline high TRIG 200-500 mg/dL High TRIG greater than 500 mg/dL Very high Standard traceable to the Center for Disease Conrtrol and Prevention (CDC) test method. PERFORMED BY: [place] [address] PATHOLOGIST HOTEL OPERATION MANAGER MANDY ACUÑA M.D. Performed By: #### C LUCY COLÓN #### [place] [id number] [facility] Troponin I High Sensitivityo n 12-09-2024 Troponin I High Sensitivity 1309 Off scale high 0-15 [facility] Comment on above: Result Comment: Crit ical Result : Called to and read back by: VIOLA KAY at: 12/09/2024 23:07:02 by:GENA The Troponin units of report have been changed to meet the Chest Pain Accreditation requirement, element EC5.M1l2. Troponin units are changed from pg/ml to ng/L. Also, the decimal is removed and results are in whole numbers. PERFORMED BY: [place] [address] PATHOLOGIST HOTEL OPERATION MANAGER MANDY ACUÑA M.D. Performed By: #### C LUCY COLÓN #### [place] [id number] [facility] HbA1c (Bld) [Mass fraction]o n 09-20-2024 Interpretation and review of laboratory results Normal [facility] Laboratory - Hematology and Cell countson 09-20-2024 HbA1c (Bld) [Mass fraction] 6.1 % [facility] Neurology Forms- Texton Neurology Forms- Text [id number] #1.00TIFF Normal [facility] Consent for Treatmenton Consent for Treatment [id number]#1 .00TIFF Normal [facility] Physician Orderon 12-05-2023 Physician Order [id number]#1 .00TIFF Normal [facility] MRI Brain w/ + w/o Contrasto [...] Vueway Contrast amount in ml's: 6 Normal [facility] MRI Spine Cervical w/o Contr bonnie 12-02-2023 [...] SANA Technologist: CORDELIA Technical Comments None Normal [facility] BUNon 11-30-2023 Urea nitrogen [Mass/Vol] 17 mg/dL Normal 5-21 [facility] Comment on above: Performed By: #### 1 [id number], [id number], [id number] #### [facility] [address] [place] [address] Consent for Treatmenton 11-14 Consent for Treatment [id number]#1 .00TIFF Normal [facility] Creatinineon 11-30-2023 Creatinine [Mass/Vol] 0.8 mg/dL Normal 0.5-1.3 [facility] Comment on above: Performed By: #### 1 [id number], [id number], [id number] #### [facility] [address] [place] [address] RAD - MRI Screening Formon 0 11-30-2023 RAD - MRI Screening Form [id number]#1 .00TIFF Normal [facility] eGFRon 11-30-2023 eGFR 79 mL/min/1.73 m2 Normal >=59 [facility] Comment on above: Order Comment: Order added by Discern Expert. Performed By: #### 1 [id number], [id number], [id number] #### [facility] [address] [place] [address] Physician Orderon 10-28-2023 Physician Order [id number]#1 .00TIFF Normal [facility] CBC AUTO DIFFon 01-05-2023 BASO # 0.1 103/ul Normal 0.0-0.1 [facility] Comment on above: Performed By: #### C BC #### [facility] [address] [place] [address] Dr. Stan Aceves Basophils/100 WBC (Bld) 0.7 % Normal 0.2-2.0 [facility] Comment on above: Performed By: #### C BC #### [facility] [address] [place] [address] Dr. Stan Aceves EO # 0.1 103/ul Normal 0.0-0.7 [facility] Comment on above: Performed By: #### C BC #### [facility] [address] [place] [address] Dr. Stan Aceves Eosinophils/100 WBC (Bld) 1.0 % Normal 0.9-7.0 [facility] Comment on above: Performed By: #### C BC #### [facility] [address] [place] [address] Dr. Stan Aceves Erythrocyte distribution width (RBC) [Ratio] 16.8 % Critically high 11.0-15.0 [facility] Comment on above: Performed By: #### C BC #### [facility] [address] [place] [address] Dr. Stan Aceves Hematocrit (Bld) [Volume fraction] 33.7 % Critically low 36.0-48.0 [facility] Comment on above: Performed By: #### C BC #### [facility] [address] [place] [address] Dr. Stan Aceves Hemoglobin (Bld) [Mass/Vol] 10.6 g/dL Critically low 12.0-16.0 [facility] Comment on above: Performed By: #### C BC #### [facility] [address] [place] [address] Dr. Stan Aceves IG # 0.03 10e3/ul Normal 0.00-0.03 [facility] Comment on above: Performed By: #### C BC #### [facility] [address] [place] [address] Dr. Stan Aceves IG % 0.3 % Normal 0.0-0.5 [facility] Comment on above: Performed By: #### C BC #### [facility] [address] [place] [address] Dr. Stan Aceves LYMPH # 0.9 103/ul Critically low 1.2-3.8 [facility] Comment on above: Performed By: #### C BC #### [facility] [address] [place] [address] Dr. Stan Aceves Lymphocytes/100 WBC (Bld) 9.9 % Critically low 20.5-60.0 [facility] Comment on above: Performed By: #### C BC #### [facility] [address] [place] [address] Dr. Stan Aceves MANUAL DIFF REQ NO Normal [facility] Comment on above: Performed By: #### C BC #### [facility] [address] [place] [address] Dr. Stan Aceves MCH (RBC) [Entitic mass] 25.7 pg Critically low 26.7-34 .0 [facility] Comment on above: Performed By: #### C BC #### [facility] [address] [place] [address] Dr. Stan Aceves MCHC (RBC) [Mass/Vol] 31.5 g/dL Normal 29.9-35.2 [facility] Comment on above: Performed By: #### C BC #### [facility] [address] [place] [address] Dr. Stan Aceves MCV (RBC) [Entitic vol] 81.6 fL Normal 81.0-99.0 [facility] Comment on above: Performed By: #### C BC #### [facility] [address] [place] [address] Dr. Stan Aceves MONO # 0.7 103/ul Normal 0.3-0.8 [facility] Comment on above: Performed By: #### C BC #### [facility] [address] [place] [address] Dr. Stan Aceves Monocytes/100 WBC (Bld) 7.3 % Normal 1.7-12.0 [facility] Comment on above: Performed By: #### C BC #### [facility] [address] [place] [address] Dr. Stan Aceves NEUT # 7.4 103/ul Critically high 1.4-6.5 [facility] Comment on above: Performed By: #### C BC #### [facility] [address] [place] [address] Dr. Stan Aceves Neutrophils/100 WBC (Bld) 80.8 % Critically high 43.0-75.0 [facility] Comment on above: Performed By: #### C BC #### [facility] [address] [place] [address] [address] Stan Aceves Platelet mean volume (Bld) [Entitic vol] 8.2 fL Critically low 9.5-13.5 [facility] Comment on above: Performed By: #### C BC #### [facility] [address] [address] [address] Stan Aceves PLT 396 103/ul Normal 150-450 [facility] Comment on above: Performed By: #### C BC #### [facility] [address] [place] [address] [address] Stan Aceves RBC 4.13 106/ul Critically low 4.20-5.40 [facility] Comment on above: Performed By: #### C BC #### [facility] [address] [place] [address] Dr. Stan Aceves WBC 9.2 103/ul Normal 4.0-11.0 [facility] Comment on above: Performed By: #### C BC #### [facility] [address] [place] [address] Dr. Stan Aceves GLYCOHEMOGLOBIN A1Con 2022 ADA RECOMMENDATION SEE BELOW Normal [facility] Comment on above: Result Comment: ADA RECOMMENDED LIMIT 4.0 - 6.0 ADA THERAPEUTIC TARGET < 7.0 ACTION SUGGESTED > 7.0 Performed By: #### A 1C #### [facility] [address] [place] [address] Dr. Stan Aceves Glucose [Mass/Vol] 126 mg/dL Normal [facility] Comment on above: Performed By: #### A 1C #### [facility] [address] [place] [address] Dr. Stan Aceves HbA1c (Bld) [Mass fraction] 6.0 % Normal 4.5-6.2 [facility] Comment on above: Performed By: #### A 1C #### [facility] [address] [place] [address] Dr. Stan Aceves IRONon 01-05-2023 Iron [Mass/Vol] 36.0 ug/dL Critically low 50.0-170.0 [facility] Comment on above: Performed By: #### I KAM #### [facility] [address] [place] [address] [address] Stan Aceves MICROALBUMIN, RAND URon 12-16 mALB <1.3 Normal <=30.0 [facility] Comment on above: Performed By: #### M ALBR #### [facility] [address] [place] [address] [address] Stan Aceves PROF 14(COMP METB)on 023 Albumin [Mass/Vol] 3.5 g/dL Normal 3.4-5.0 [facility] Comment on above: Performed By: #### T 4, CMP, TSH #### [facility] [address] [place] [address] Dr. Stan Aceves Albumin/Globulin [Mass ratio] 1.0 {ratio} Normal [facility] Comment on above: Performed By: #### T 4, CMP, TSH #### [facility] [address] [address] [address] Stan Aceves ALP [Catalytic activity/Vol] 105 U/L Normal 46-116 [facility] Comment on above: Performed By: #### T 4, CMP, TSH #### [facility] [address] [place] [address] Dr. Stan Aceves ALT [Catalytic activity/Vol] 20 U/L Normal 14-59 [facility] Comment on above: Performed By: #### T 4, CMP, TSH #### [facility] [address] [place] [address] [address] Stan Aceves Anion gap [Moles/Vol] 12.1 mmol/L Normal Th [facility] Comment on above: Performed By: #### T 4, CMP, TSH #### [facility] [address] [place] [address] Dr. Stan Aceves AST [Catalytic activity/Vol] 14 U/L Critically low 15-37 [facility] Comment on above: Performed By: #### T 4, CMP, TSH #### [facility] [address] [place] [address] Dr. Stan Aceves Bilirubin [Mass/Vol] 0.3 mg/dL Normal 0.2-1.0 [facility] Comment on above: Performed By: #### T 4, CMP, TSH #### [facility] [address] [place] [address] Dr. Stan Aceves Calcium [Mass/Vol] 9.1 mg/dL Normal 8.5-10.1 [facility] Comment on above: Performed By: #### T 4, CMP, TSH #### [facility] [address] [place] [address] Dr. Stan Aceves Chloride [Moles/Vol] 103 mmol/L Normal 98-107 [facility] Comment on above: Performed By: #### T 4, CMP, TSH #### [facility] [address] [place] [address] Dr. Stan Aceves CO2 [Moles/Vol] 26.8 mmol/L Normal 21.0-32.0 [facility] Comment on above: Performed By: #### T 4, CMP, TSH #### [facility] [address] [place] [address] Dr. Stan Aceves Creatinine [Mass/Vol] 0.84 mg/dL Normal 0.55-1.02 [facility] Comment on above: Performed By: #### T 4, CMP, TSH #### [facility] [address] [place] [address] Dr. Stan Aceves EGFR-AF DOMINICAN >60 Normal >=60 [facility] Comment on above: Performed By: #### T 4, CMP, TSH #### [facility] [address] [place] [address] Dr. Stan Aceves EGFR-NON AF DOMINICAN >60 Normal >=60 [facility] Comment on above: Performed By: #### T 4, CMP, TSH #### [facility] [address] [place] [address] Dr. Stan Aceves Globulin (S) [Mass/Vol] 3.6 g/dL Normal [facility] Comment on above: Performed By: #### T 4, CMP, TSH #### [facility] [address] [place] [address] Dr. Stan Aceves Glucose [Mass/Vol] 84 mg/dL Normal 74-106 [facility] Comment on above: Performed By: #### T 4, CMP, TSH #### [facility] [address] [place] [address] Dr. Stan Aceves Potassium [Moles/Vol] 3.9 mmol/L Normal 3.5-5.1 [facility] Comment on above: Performed By: #### T 4, CMP, TSH #### [facility] [address] [place] [address] Dr. Stan Aceves Protein [Mass/Vol] 7.1 g/dL Normal 6.4-8.2 [facility] Comment on above: Performed By: #### T 4, CMP, TSH #### [facility] [address] [place] [address] Dr. Stan Aceves Sodium [Moles/Vol] 138 mmol/L Normal 136-145 [facility] Comment on above: Performed By: #### T 4, CMP, TSH #### [facility] [address] [place] [address] Dr. Stan Aceves Urea nitrogen [Mass/Vol] 12.0 mg/dL Normal 7.0-18.0 [facility] Comment on above: Performed By: #### T 4, CMP, TSH #### [facility] [address] [place] [address] Dr. Stan Aceves Urea nitrogen/Creatinine [Mass ratio] 14.3 mg/mg Normal [facility] Comment on above: Performed By: #### T 4, CMP, TSH #### [facility] [address] [place] [address] Dr. Stan Aceves T4on 01-05-2023 T4 [Mass/Vol] 8.70 ug/dL Normal 4.80-13.90 [facility] Comment on above: Performed By: #### T 4, CMP, TSH #### [facility] [address] [place] [address] Dr. Stan Aceves TSHon 01-05-2023 TSH 2.209 uIU/mL Normal 0.358-3.740 [facility] Comment on above: Performed By: #### T 4, CMP, TSH #### [facility] [address] [place] [address] [address] Stan Aceves MRI BRAIN WO W [...] PATRICK PIERRE Date: 2022-04-27 10:16 Normal [facility] CREATININEon 04-08-2022 Creatinine [Mass/Vol] 0.91 mg/dL Normal 0.55-1.02 [facility] Comment on above: Performed By: #### C ONIEL #### [facility] [address] [place] [address] [address] Stan Aceves EGFR-AF DOMINICAN >60 Normal >=60 [facility] Comment on above: Performed By: #### C ONIEL #### [facility] [address] [place] [address] [address] Stan Aceves EGFR-NON AF DOMINICAN >60 Normal >=60 [facility] Comment on above: Performed By: #### C ONIEL #### [facility] [address] [place] [address] [address] Stan Aceves CTA ABD/PELVIS WO W [...] PATRICK PIERRE Date: 2022-04-08 10:04 Normal [facility] Established Visit (Otolaryng ology)on 09-26-2018 Established [...] EVERY week --take 30 MINUTES before BREAKFAST;Therapy: [id number] to Recorded Rx By: Zion; Dispense: 84 [...] TAKE 1 TABLET BY MOUTH DAILY ATBEDTIME;Therapy: [id number] to Recorded Rx By: Zion; Dispense: 30 Days ; #:30; Refill: 0; ARIEL = N; Record; Last Updated By: Domenica Topete; 10/11/2017 1:16:16 PM Famotidine 20 MG Oral Tablet; TAKE 1 TABLET AT BEDTIME and TAKE 1 TABLET ASNEEDED during the day;Therapy: [id number] to Recorded Rx By: Zion; Dispense: 30 [...] 1:16:16 PM Simvastatin 20 MG Oral Tablet;Therapy: [id number] to Recorded Rx By: GIANNA ISABEL; Dispense: 30 Days ; #:30; Refill: 0; ARIEL = N; Record; Last Updated By: Mc Winter; 08/20/2014 1:02:13 PM True Metrix Meter w/Device Kit; use to test BLOOD SUGAR DAILY;Therapy: [id number] to Recorded Rx By: Chalo; Dispense: 1 Days ; #:1; Refill: 0; ARIEL = N; Record; Last Updated By: Domenica Topete; 10/11/2017 1:16:16 PM Ulti-Michael Automatic;Therapy: [id number] to Recorded Dispense: 30 Days ; #:1; Refill: 0; ARIEL = N; Record; Last Updated By: Rachel Contreras; 10/10/2013 3:23:22 PM Diagnoses/Problems Acoustic neuroma (225.1) (D33.3) Orders MRI IAC w/wo Contrast; Status:Hold For - Scheduling,Retrospect desmond By ProtocolAuthorization ; Requested for:15Sep2020; Perform:[facility]; Due:14Dec2020; Last Updated By:Carole Lanier; 09/26/2018 3:48:32 PM;Ordered; For:Acoustic neuroma; Ordered By:Shane Wilkerson;Radiologist to Determine Optimal Study : YWhat are the patient's signs and symptoms? : s/p CPA lesion resection Signatures Electronically signed by : Shane Wilkerson MD; Sep 26 2018 4:29PM EST (Author) Normal Touchworks Vital Signs Date Time Vital Sign Value Performing Clinician Facility 02-06-2025 10:08-0400 Body mass index (BMI) [Ratio] 25.05 kg/m2 La Ramone EDITOR SOUND Work Phone: [facility] 02-06-2025 10:08-0400 Body temperature 98.1 [degF] La Ramone EDITOR SOUND Work Phone: [facility] 02-06-2025 10:08-0400 Body weight 64.14 kg La Raomne EDITOR SOUND Work Phone: [facility] 02-06-2025 10:08-0400 Diastolic blood pressure 72 mm[Hg] La Ramone EDITOR SOUND Work Phone: [facility] 02-06-2025 10:08-0400 Heart rate 80 /min La Ramone EDITOR SOUND Work Phone: [facility] 02-06-2025 10:08-0400 Respiratory rate 20 /min La Ramone EDITOR SOUND Work Phone: [facility] 02-06-2025 10:08-0400 SaO2% (BldA) [Mass fraction] 97 % La Dalehholz EDITOR SOUND Work Phone: [facility] Comment on above: with 3L of 02 on 02-06-2025 10:08-0400 Systolic blood pressure 124 mm[Hg] La Dalehholz EDITOR SOUND Work Phone: [facility] 01-23-2025 11:44-0400 Body height 160 cm La Aichholz EDITOR SOUND Work Phone: [facility] 01-23-2025 11:44-0400 Body mass index (BMI) [Ratio] 25.15 kg/m2 La Aichholz EDITOR SOUND Work Phone: [facility] 01-23-2025 11:44-0400 Body temperature 97.81 [degF] La Aichholz EDITOR SOUND Work Phone: [facility] 01-23-2025 11:44-0400 Body weight 64.41 kg La Aichholz EDITOR SOUND Work Phone: [facility] 01-23-2025 11:44-0400 Diastolic blood pressure 56 mm[Hg] La Aichholz EDITOR SOUND Work Phone: [facility] 01-23-2025 11:44-0400 Heart rate 98 /min La Aichholz EDITOR SOUND Work Phone: [facility] 01-23-2025 11:44-0400 Respiratory rate 24 /min La Aichholz EDITOR SOUND Work Phone: [facility] 01-23-2025 11:44-0400 SaO2% (BldA) [Mass fraction] 97 % La Aichholz EDITOR SOUND Work Phone: [facility] 01-23-2025 11:44-0400 Systolic blood pressure 110 mm[Hg] La Aichholz EDITOR SOUND Work Phone: [facility] 01-14-2025 09:30-0500 Body height 160 cm Ian Soares MD Work Phone: [facility] 01-14-2025 09:30-0500 Body mass index (BMI) [Ratio] 25.15 kg/m2 Ian Soares MD Work Phone: [facility] 01-14-2025 09:30-0500 Body temperature 96.6 [degF] Ian Soares MD Work Phone: [facility] 01-14-2025 09:30-0500 Body weight 64.41 kg Ian Soares MD Work Phone: [facility] 01-14-2025 09:30-0500 Diastolic blood pressure 66 mm[Hg] Ian Soares MD Work Phone: [facility] 01-14-2025 09:30-0500 Heart rate 85 /min Ian Soares MD Work Phone: [facility] 01-14-2025 09:30-0500 Respiratory rate 22 /min Ian Soares MD Work Phone: [facility] 01-14-2025 09:30-0500 SaO2% (BldA) [Mass fraction] 97 % Ian Soares MD Work Phone: [facility] 01-14-2025 09:30-0500 Systolic blood pressure 130 mm[Hg] Ian Soares MD Work Phone: [facility] 01-04-2025 09:09-0500 Body height 160.02 cm Daniel Cardoso EDITOR SOUND-C Work Phone: [facility] 01-04-2025 09:09-0500 Body mass index (BMI) [Ratio] 24.7 kg/m2 Daniel Cardoso EDITOR SOUND-C Work Phone: [facility] 01-04-2025 09:09-0500 Body weight 63.5 kg Daniel Cardoso EDITOR SOUND-C Work Phone: [facility] 01-04-2025 09:09-0500 Diastolic blood pressure 56 mm[Hg] Daniel Cardoso EDITOR SOUND-C Work Phone: [facility] 01-04-2025 09:09-0500 Heart rate 82 /min Daniel Castorenapatrick EDITOR SOUND-C Work Phone: [facility] 01-04-2025 09:09-0500 Inhaled oxygen flow rate 3 L/min Daniel Cardoso EDITOR SOUND-C Work Phone: [facility] 01-04-2025 09:09-0500 Respiratory rate 18 /min Daniel Cardoso EDITOR SOUND-C Work Phone: [facility] 01-04-2025 09:09-0500 SaO2% (BldA) [Mass fraction] 97 % Daniel Cardoso EDITOR SOUND-C Work Phone: [facility] 01-04-2025 09:09-0500 Systolic blood pressure 104 mm[Hg] Daniel Castorenapatrick EDITOR SOUND-C Work Phone: [facility] 01-01-2025 13:20-0500 Body temperature 98.1 [degF] Stephen Furlong DO Work Phone: [facility] [employer] [facility] 01-01-2025 13:20-0500 Diastolic blood pressure 84 mm[Hg] Stephen Furlong DO Work Phone: [facility] [employer] [facility] 01-01-2025 13:20-0500 Heart rate 73 /min Stephen [facility]long DO [facility] 01-01-2025 13:20-0500 Respiratory rate 16 /min Stephen Furlong DO [facility] 01-01-2025 13:20-0500 SaO2% (BldA) [Mass fraction] 96 % Stephen Furlong DO Work [facility]: [facility] 01-01-2025 13:20-0500 Systolic blood pressure 129 mm[Hg] Stephen Furlong DO Work Phone: [facility] [employer] [facility] 12-28-2024 14:56-0500 Body temperature 97.2 [degF] Stephen Furlong DO Work Phone: [facility] [employer] 12-28-2024 14:56-0500 Diastolic blood pressure 79 mm[Hg] Stephen Furlong DO Work Phone: [facility] [employer] [facility] 12-28-2024 14:56-0500 Heart rate 79 /min Stephen Furlong DO Work Phone: [facility] [employer] [facility] 12-28-2024 14:56-0500 Respiratory rate 18 /min Stephen Furlong DO Work Phone: [facility] [employer] [facility] 12-28-2024 14:56-0500 SaO2% (BldA) [Mass fraction] 96 % Stephen Furlong DO Work Phone: [facility] [employer] 12-28-2024 14:56-0500 Systolic blood pressure 150 mm[Hg] Stephen Furlong DO Work Phone: [facility] [employer] [facility] 12-25-2024 17:23-0500 Body mass index (BMI) [Ratio] 24.03 kg/m2 Stephen Furlong DO Work Phone: [facility] [employer] 12-25-2024 17:23-0500 Body temperature 97.9 [degF] Stephen Furlong DO Work Phone: [facility] [employer] [facility] 12-25-2024 17:23-0500 Body weight 63.5 kg Stephen Furlong DO Work Phone: [facility] [employer] 12-25-2024 17:23-0500 Diastolic blood pressure 75 mm[Hg] Stephen Furlong DO Work Phone: [facility] [employer] [facility] 12-25-2024 17:23-0500 Heart rate 94 /min Stephen Furlong DO Work Phone: [facility] [employer] [facility] 02-11-2025 17:23-0500 Respiratory rate 18 /min Stephen Furlong DO Work Phone: [facility] [employer] 12-25-2024 17:23-0500 SaO2% (BldA) [Mass fraction] 93 % Stephen Furlong DO Work Phone: [facility] [employer] [facility] 12-25-2024 17:23-0500 Systolic blood pressure 124 mm[Hg] Stephen Furlong DO Work Phone: [facility] [employer] [facility] 12-18-2024 19:16-0500 Body height 162.6 cm Stephen Furlong [facility] 12-18-2024 19:16-0500 Body temperature 97.81 [degF] Stephen Furlong DO Work Phone: [facility] [employer] 12-18-2024 19:16-0500 Diastolic blood pressure 65 mm[Hg] Stephen Furlong DO Work Phone: [facility] [employer] [facility] 12-18-2024 19:16-0500 Heart rate 82 /min Stephen Furlong DO [facility] 12-18-2024 19:16-0500 Respiratory rate 18 /min Stephen Furlong DO Work Phone: [facility] [employer] 12-18-2024 19:16-0500 SaO2% (BldA) [Mass fraction] 92 % Stephen Furlong DO Work Phone: [facility] [employer] [facility] 12-18-2024 19:16-0500 Systolic blood pressure 112 mm[Hg] Stephen Furlong DO Work Phone: [facility] [employer] [facility] 12-14-2024 14:05-0500 Heart rate 91 /min Daniel Cardoso EDITOR SOUND-C Work Phone: [facility] 12-14-2024 14:05-0500 Respiratory rate 18 /min Daniel Cardoso EDITOR SOUND-C Work Phone: [facility] 12-14-2024 09:25-0500 Body temperature 97.5 [degF] Daniel Cardsoo EDITOR SOUND-C Work Phone: [facility] 12-14-2024 09:25-0500 Diastolic blood pressure 57 mm[Hg] Daniel Cardoso EDITOR SOUND-C Work Phone: [facility] 12-14-2024 09:25-0500 Inhaled oxygen flow rate 4 L/min Daniel Cardoso EDITOR SOUND-C Work Phone: [facility] 12-14-2024 09:25-0500 SaO2% (BldA) [Mass fraction] 90 % Daniel Cardoso EDITOR SOUND-C Work Phone: [facility] 12-14-2024 09:25-0500 Systolic blood pressure 104 mm[Hg] Daniel Cardoso EDITOR SOUND-C Work Phone: [facility] 12-14-2024 06:00-0500 Body weight 65.3 kg Daniel Cardoso EDITOR SOUND-C Work Phone: [facility] 12-13-2024 17:05-0500 Body height 162.56 cm Daniel Cardoso EDITOR SOUND-C Work Phone: [facility] 12-11-2024 12:00-0500 Inhaled oxygen concentration 40 % Daniel Cardoso EDITOR SOUND-C Work Phone: [facility] 09-20-2024 09:43-0500 Body height 160 cm Daniel Cardoso EDITOR SOUND Work Phone: [facility] 09-20-2024 09:43-0500 Body mass index (BMI) [Ratio] 24.13 kg/m2 Daniel Cardoso EDITOR SOUND Work Phone: [facility] 09-20-2024 09:43-0500 Body temperature 96.69 [degF] Daniel Martineztrick EDITOR SOUND Work Phone: [facility] 09-20-2024 09:43-0500 Body weight 61.78 kg Daniel Martineztrick EDITOR SOUND Work Phone: [facility] 09-20-2024 09:43-0500 Diastolic blood pressure 74 mm[Hg] Daniel Castorenapatrick EDITOR SOUND Work Phone: [facility] 09-20-2024 09:43-0500 Heart rate 85 /min Daniel Martineztrick EDITOR SOUND Work Phone: [facility] 09-20-2024 09:43-0500 Respiratory rate 18 /min Daniel Martineztrick EDITOR SOUND Work Phone: [facility] 09-20-2024 09:43-0500 SaO2% (BldA) [Mass fraction] 94 % Daniel Martineztrick EDITOR SOUND Work Phone: [facility] 09-20-2024 09:43-0500 Systolic blood pressure 128 mm[Hg] Daniel Castorenapatrick EDITOR SOUND Work Phone: [facility] Healthcare Encounters Encounter Date Encounter Type Care Provider Facility Start: 02-19-2025 End: 02-19-2025 Orders Only La Crossrashaad EDITOR SOUND Work Phone: [facility] Comment on above: Elevated TSH Start: 02-18-2025 End: 02-18-2025 Clinisync Result Encounter La Crossrashaad EDITOR SOUND Work Phone: [facility] External [facility] Unsolicited Start: 02-18-2025 End: 02-18-2025 Clinisync Result Encounter La Crossrashaad EDITOR SOUND Work Phone: [facility] Unsolicited Start: 02-06-2025 End: 02-06-2025 Office outpatient visit 25 minutes La Crossrashaad EDITOR SOUND Work Phone: [facility] Comment on above: Type 2 diabetes shanthi itus without complication, without long- term current use of insulin (CMS/HCC) (Primary Dx); Chronic obstructive pulmonary disease, unspecified COPD type (CMS/HCC); Primary hypertension (CMS/HCC); Vitamin D deficiency; 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 loss; Cigarette nicotine dependence without complication; Recurrent major depressive disorder, in full remission (CMS/HCC); Generalized anxiety disorder (CMS/HCC); Screening mammogram, encounter for; Other hyperlipidemia (CMS/HCC); Acute hypoxic respiratory failure (CMS/HCC) Start: 02-06-2025 End: 02-06-2025 ambulatory LA AICHHOLZ Not Available Start: 01-23-2025 End: 01-23-2025 Office outpatient visit 25 minutes La Pack EDITOR SOUND Work Phone: [facility] Comment on above: Scalp laceration, se quela (Primary Dx); Cigarette nicotine dependence without complication; COPD exacerbation (CMS/HCC) Start: 01-23-2025 End: 01-23-2025 ambulatory LA AICHHOLZ Not Available Start: 01-14-2025 End: 01-14-2025 Bamboo flowsheet Ian Soares MD Work Phone: [facility] Start: 01-14-2025 End: 01-14-2025 Bamboo flowsheet Ian Soares MD Work Phone: [facility] Start: 01-14-2025 End: 01-14-2025 Transitional care manage srvc 14 day discharge Ian Soares MD Work Phone: [facility] Comment on above: Influenza A (Primary Dx); Chronic obstructive pulmonary disease, unspecified COPD type (CMS/HCC); Acute hypoxic respiratory failure (CMS/HCC); Type 2 diabetes mellitus without complication, without long-term current use of insulin (CMS/HCC); Primary hypertension (CMS/HCC); Benign neoplasm of cranial nerves (CMS/HCC); Type 2 diabetes mellitus with diabetic polyneuropathy (CMS/HCC) Start: 01-14-2025 End: 01-14-2025 ambulatory IAN SOARES Not Available Start: 01-04-2025 End: 01-04-2025 ambulatory Daniel Cardoso EDITOR SOUND-C Work Phone: [facility] Work Phone: Start: 01-04-2025 End: 01-04-2025 Patient encounter procedure Daniel Walker EDITOR SOUND-C Work Phone: [facility] Work Phone: Start: 01-01-2025 End: 01-01-2025 [...] complication, without long-term current use of insulin [place] Anxiety Start: 12-13-2024 Non-patient / Non-visit Margo saldivar Cardoso EDITOR SOUND-C Work Phone: [facility] Work Phone: Start: 12-10-2024 Non-patient / Non-visit Margo saldivar Cardoso EDITOR SOUND-C Work Phone: [facility] Work Phone: Start: 12-10-2024 Non-patient / Non-visit Margo saldivar Cardoso EDITOR SOUND-C Work Phone: [facility] Work Phone: Start: 12-10-2024 Non-patient / Non-visit Margo saldivar Cardoso EDITOR SOUND-C Work Phone: [facility] Work Phone: Start: 12-09-2024 End: 12-14-2024 Evaluation and management of inpatient Daniel Cardoso EDITOR SOUND-C Work Phone: [facility] [place] [facility] Work Phone: Start: 12-09-2024 End: 12-09-2024 ambulatory UNKNOWN PROVIDER Facility:[facility] Start: 12-09-2024 End: 12-11-2024 Clinisync Result Encounter Generic External Data Provider [facility] External [facility] Unsolicited Start: 12-09-2024 End: 12-11-2024 Clinisync Result Encounter Generic External Data Provider [facility] External [facility] Unsolicited Start: 12-06-2024 End: 12-06-2024 Refill Sabina Black MA [facility] Comment on above: 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 Start: 11-27-2024 End: 11-27-2024 Refill Sabina Black MA [facility] Comment on above: Asthma with COPD (ch ronic obstructive pulmonary disease) ([facility]) Start: 11-12-2024 End: 11-14-2024 Refill Daniel Cardoso EDITOR SOUND Work Phone: [facility] Comment on above: 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 Start: 10-22-2024 End: 10-22-2024 Refill Daniel Cardoso EDITOR SOUND Work Phone: [facility] Comment on above: Gastro-esophageal re flux disease without esophagitis Start: 10-22-2024 End: 10-22-2024 Refill Daniel Cardoso EDITOR SOUND Work Phone: [facility] Comment on above: Depression, unspecif ied ([facility]) Start: 09-20-2024 End: 09-20-2024 Bamboo flowsheet Daniel Cardoso EDITOR SOUND Work Phone: [facility] Start: 09-20-2024 End: 09-20-2024 Bamboo flowsheet Daniel Cardoso EDITOR SOUND Work Phone: [facility] Start: 09-20-2024 End: 09-20-2024 Office outpatient visit 15 minutes Daniel Cardoso EDITOR SOUND Work Phone: [facility] Comment on above: Primary hypertension ([place]) (Primary Dx); Type 2 diabetes mellitus without complication, without long-term current use of insulin ([place]); Other hyperlipidemia ([facility]); Asthma with COPD (chronic obstructive pulmonary disease) ([facility]); Non-recurrent acute serous otitis media of left ear Start: 09-20-2024 End: 09-20-2024 ambulatory DANIEL CARDOSO Not Available Start: 09-11-2024 End: 09-11-2024 Refill Daniel Cardoso EDITOR SOUND Work Phone: [facility] Comment on above: Type 2 diabetes shanthi itus without complications ([facility]) Hyperlipidemia, unsp ecified ([facility]) Other bursitis of el bow, left elbow Start: 09-03-2024 End: 09-03-2024 Refill Ailyn SHAFER [facility] Comment on above: Asthma with COPD (ch ronic obstructive pulmonary disease) ([facility]) Start: 08-27-2024 End: 08-27-2024 Refill Daniel Cardoso EDITOR SOUND Work Phone: [facility] Comment on above: Asthma with COPD (ch ronic obstructive pulmonary disease) ([facility]) Start: 08-01-2024 End: 08-02-2024 Refill Arturo [facility]AFER [facility] Comment on above: Hyperlipidemia, unsp ecified ([facility]); Other bursitis of elbow, left elbow; Depression, unspecified ([facility]); Type 2 diabetes mellitus without complications ([facility]) Start: 07-25-2024 End: 07-26-2024 Refill Arturo CAMPOSS [facility] Comment on above: Other bursitis of el bow, left elbow Start: 07-23-2024 End: 07-23-2024 Refill Daniel Cardoso EDITOR SOUND Work Phone: [facility] Comment on above: Type 2 diabetes shanthi itus without complications ([facility]); Hyperlipidemia, unspecified ([facility]) Start: 07-07-2024 End: 07-07-2024 Chart abstracting Daniel Cardoso EDITOR SOUND Work Phone: [facility] Comment on above: 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 (Primary Dx) Start: 06-21-2024 End: 06-21-2024 ambulatory DANIEL CARDOSO Not Available Start: 03-08-2024 End: 03-08-2024 ambulatory SHAIKH HERO Not Available Start: 03-01-2024 End: 03-01-2024 ambulatory ARIELLE WHEELER Not Available Start: 12-15-2023 End: 12-16-2023 ambulatory Arielle [place] Start: 12-15-2023 End: 12-15-2023 Patient encounter procedure Arielle Wheeler [facility] Start: 11-30-2023 End: 12-01-2023 ambulatory Arielle Wheeler [place] Start: 10-28-2023 End: 11-10-2023 Pre-admission assessment Arielle Wheeler [facility] Start: 01-05-2023 End: 01-06-[address] GIANNA ISABEL Facility:[facility] Start: 04-26-2022 End: 04-27-[address] GIANNA ISABEL Facility:[facility] Start: 04-08-2022 End: 04-09-[address] GIANNA ISABEL Facility: Procedures Date Procedure Procedure Detail Performing Clinician Start: 02-18-2025 MM TOMOSYNTHESIS SCR EENING BI La Pack EDITOR SOUND Work Phone: Start: 02-18-2025 ALL CBC WITH AUTO DIFF La Pack EDITOR SOUND Work Phone: Start: 02-18-2025 Mammography La cruz EDITOR SOUND Work Phone: Start: 12-11-2024 Plain chest X-ray Taylor any Cardoso EDITOR SOUND-C Work Phone: Start: 12-10-2024 Plain chest X-ray Taylor any Cardoso EDITOR SOUND-C Work Phone: Start: 12-09-2024 Plain X-ray abdomen Katy ttany Cardoso EDITOR SOUND-C Work Phone: Start: 12-09-2024 Plain chest X-ray Taylor any Cardoso EDITOR SOUND-C Work Phone: Start: 12-09-2024 BLOOD CULTURE 2 Generic External Data Provider Start: 12-09-2024 Aerobic microbial culture Daniel Cardoso EDITOR SOUND-[employer] Work Phone: Start: 12-09-2024 Bacteria identified in Blood by Culture Daniel Walker EDITOR SOUND-C Work Phone: Start: 12-09-2024 Gram stain microscopy B anna Walker EDITOR SOUND-C Work Phone: Start: 09-20-2024 Hemoglobin glycosyla brendan a1c Daniel Walker EDITOR SOUND Work Phone: Start: 01-16-2024 Mammography Daniel Huerta kristin EDITOR SOUND Work Phone: Plan of Treatment Date Care Activity Detail Author Start: 01-30-2027 Glaucoma screening Diabetes: R etinopathy Screening [facility] Start: 02-18-2026 Screening for malign ant neoplasm of breast Mammogram [facility] Start: 02-18-2026 Urine screening for protein Diabetes: Urine Protein Screening [facility] Start: 11-14-2025 Screening for malign ant neoplasm of colon [facility] Start: 08-20-2025 Hemoglobin A1c measurement Diabetes: Hemoglobin A1C [facility] Start: 07-15-2025 Influenza vaccination Influenz a Vaccine (Season Ended) [facility] Start: 05-13-2025 Influenza vaccination Influenza Vacc ine (#1) [facility] Comment on above: Postponed from 07/15 (Patient Refused) Start: 04-16-2025 End: 04-16-2025 Patient encounter procedure [facility] Start: 03-21-2025 End: 02-19-2026 Thyrotropin [Units/volume] in Serum or Plasma TSH Lab Routine Elevated TSH Expected: 03/21/2025 (Approximate), Expires: 02/19/2026 [facility] Work Phone: Comment on above: Expected: 03/21/2025 (Approximate), Expires: 02/19/2026 Start: 03-21-2025 End: 02-19-2026 Thyroxine (T4) free [Mass/volume] in Serum or Plasma T4, free Lab Routine Elevated TSH Expected: 03/21/2025 (Approximate), Expires: 02/19/2026 [facility] Comment on above: Expected: 03/21/2025 (Approximate), Expires: 02/19/2026 Start: 03-20-2025 Hemoglobin A1c measurement Diabetes: Hemoglobin A1C [facility] Start: 03-14-2025 Glaucoma screening Diabetes: R etinopathy Screening [facility] Start: 03-08-2025 Medicare Annual Well ness (AWV) Medicare Annual Wellness (AWV) [facility] Start: 02-06-2025 End: 02-06-2026 25-hydroxyvitamin D3 [Mass/volume] in Serum or Plasma Vitamin D 25 hydroxy Lab Routine Vitamin D deficiency Expected: 02/06/2025 (Approximate), Expires: 02/06/2026 [facility] Comment on above: Expected: 02/06/2025 (Approximate), Expires: 02/06/2026 Start: 02-06-2025 End: 02-06-2026 CBC W Auto Differential panel - Blood CBC and differential Lab Routine 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 loss Expected: 02/06/2025 (Approximate), Expires: 02/06/2026 [facility] Comment on above: Expected: 02/06/2025 (Approximate), Expires: 02/06/2026 Start: 02-06-2025 End: 02-06-2026 Comprehensive metabolic 2000 panel - Serum or Plasma Comprehensive metabolic panel Lab Routine Primary hypertension (CMS/HCC) Type 2 diabetes mellitus without complication, without long-term current use of insulin (CMS/HCC) Expected: 02/06/2025 (Approximate), Expires: 02/06/2026 [facility] Comment on above: Expected: 02/06/2025 (Approximate), Expires: 02/06/2026 Start: 02-06-2025 End: 02-06-2026 Ferritin [Mass/volume] in Serum or Plasma Ferritin Lab Routine 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 loss Expected: 02/06/2025 (Approximate), Expires: 02/06/2026 [facility] Comment on above: Expected: 02/06/2025 (Approximate), Expires: 02/06/2026 Start: 02-06-2025 End: 02-06-2026 Hemoglobin A1c/Hemoglobin.total in Blood Hemoglobin A1c Lab Routine Type 2 diabetes mellitus without complication, without long-term current use of insulin (CMS/HCC) Expected: 02/06/2025 (Approximate), Expires: 02/06/2026 [facility] Comment on above: Expected: 02/06/2025 (Approximate), Expires: 02/06/2026 Start: 02-06-2025 End: 02-06-2026 Iron + transferrin + TIBC Iron + transferrin + TIBC Lab Routine 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 loss Expected: 02/06/2025 (Approximate), Expires: 02/06/2026 [facility] Comment on above: Expected: 02/06/2025 (Approximate), Expires: 02/06/2026 Start: 02-06-2025 End: 02-06-2026 Lipid 1996 panel - Serum or Plasma Lipid panel Lab Routine Other hyperlipidemia ([facility]) Expected: 02/06/2025 (Approximate), Expires: 02/06/2026 [facility] Comment on above: Expected: 02/06/2025 (Approximate), Expires: 02/06/2026 Start: 02-06-2025 End: 04-08-2026 MG Breast - bilateral Screening Bilateral screening mammogram Imaging Routine Screening mammogram, encounter for Expected: 02/06/2025 (Approximate), Expires: 04/08/2026 [facility] Work Phone: Comment on above: Expected: 02/06/2025 (Approximate), Expires: 04/08/2026 Start: 02-06-2025 End: 02-06-2026 Microalbumin/Creatinine panel in random Urine Microalbumin / creatinine, urine ratio Lab Routine Primary hypertension ([facility]) Type 2 diabetes mellitus without complication, without long-term current use of insulin ([facility]) Expected: 02/06/2025 (Approximate), Expires: 02/06/2026 [facility] Comment on above: Expected: 02/06/2025 (Approximate), Expires: 02/06/2026 Start: 02-06-2025 End: 02-06-2026 Thyrotropin [Units/volume] in Serum or Plasma TSH Lab Routine Generalized anxiety disorder ([facility]) Expected: 02/06/2025 (Approximate), Expires: 02/06/2026 [facility] Comment on above: Expected: 02/06/2025 (Approximate), Expires: 02/06/2026 Start: 02-06-2025 End: 02-06-2026 Urinalysis complete panel - Urine Urinalysis with reflex microscopic (clean catch) Lab Routine Primary hypertension (CMS/HCC) Type 2 diabetes mellitus without complication, without long-term current use of insulin (CMS/HCC) Expected: 02/06/2025 (Approximate), Expires: 02/06/2026 [facility] Comment on above: Expected: 02/06/2025 (Approximate), Expires: 02/06/2026 Start: 02-06-2025 End: 02-06-2025 Patient encounter procedure 02/06/2025 10:00 AM EDT Office Visit [facility] [address] [place] [address] La Pack NP [address] [place] [phone] [facility] Start: 01-31-2025 End: 01-31-2025 Patient encounter procedure 01/31/2025 11:00 AM EDT Office Visit [facility] MIRAN[facility] [address] [place] [address] Tashia Polk PA [address] [place], [place] [id number] [facility] Start: 01-15-2025 Screening for malign ant neoplasm of breast Mammogram [facility] Start: 01-14-2025 End: 01-14-2025 Patient encounter procedure 01/14/2025 9:30 AM EST Office Visit [facility] [address] [place] [address] Ian Soares MD [address] [place] [phone] Arrived [facility] Comment on above: Arrived Start: 01-11-2025 Urine screening for protein Diabetes: Urine Protein Screening [facility] Start: 12-20-2024 End: 12-20-2024 Patient encounter procedure 12/20/2024 10:00 AM EST Office Visit [facility] [address] [place] [address] Daniel Cardoso NP [address] [place] [address] [facility] Start: 12-14-2024 [facility] Start: 12-13-2024 Administration of prophylactic treatment [facility] Start: 12-13-2024 Referral to rehabilitation physician [facility] Start: 12-09-2024 [facility] Start: 12-09-2024 [facility] Start: 12-09-2024 Consultation [facility] Start: 12-09-2024 Hospital admission [facility] Start: 12-09-2024 Bacteria identified in Blood by Culture Blood Culture [facility] Start: 12-09-2024 Respiratory Ventilat ion, 24-96 Consecutive Hours Respiratory Ventilation, 24-96 Consecutive Hours [facility] Start: 11-27-2024 Pneumococcal Vaccine : 65+ Years (1 of 2 - PCV) Pneumococcal Vaccine: 65+ Years (1 of 2 - PCV) [facility] Comment on above: Postponed from 04/21 (Other Patient Reasons) Start: 10-10-2024 End: 10-10-2024 Patient encounter procedure 10/10/2024 9:20 AM EST Office Visit [facility] [address] [place] [address] Tashia Polk PA [address] [place] [address] [facility] [address] Start: 09-20-2024 End: 09-20-2024 Patient encounter procedure [facility] Comment on above: Arrived Start: 07-18-2024 End: 07-18-2024 Patient encounter procedure [facility] [address] Start: 07-15-2024 Influenza vaccination [facility] Start: 01-13-2024 Hemoglobin A1c measurement Diabetes: Hemoglobin A1C [facility] Start: 2018 Fall Risk Screening Fall Risk Screen ing [facility] Start: 2003 Administration of varicella zoster vaccine Zoster (Shingles) Vaccine (1 of 2) [facility] Start: 1972 DTaP,Tdap and Td Vaccines (1 - Tdap) DTaP,Tdap and Td Vaccines (1 - Tdap) [facility] Start: 1971 Adult BMI Screening Adult BMI Screen ing [facility] Start: 1971 Diabetic foot examination Diabetic Foot Exam [facility] Start: 1965 Depression Screening Depression Scre ening [facility] Start: 1965 Tobacco Screening Tobacco Screening [facility] Start: 1959 Pneumococcal Vaccine : 65+ Years (1 of 2 - PCV) Pneumococcal Vaccine: 65+ Years (1 of 2 - PCV) [facility] Start: 1953 Glaucoma screening Diabetic Op hthalmology Exam [facility] Start: 1953 Screening for malign ant neoplasm of colon [facility] Start: 1953 Statin Use: Diabetic Statin Use: Claudine betic [facility] BLOOD CULTURE 2 BLOOD CULTURE 2 Lab Routine 12/09/2024 4:21 PM EST [facility] Patient referral [facility] Work Phone: Immunizations Immunization Date Immunization Notes Care Provider Keo carlson 12-31-2024 Pneumococcal Conjuga te PCV 20 La Pack [employer] Work Phone: [facility] 12-27-2024 SARS-COV-2 (COVID-19 ) vaccine, mRNA, spike protein, LNP, bivalent, preservative free, 30 mcg/0.3 mL dose, carolyn-sucrose formulation La Pack [employer] Work Phone: [facility] 08-14-2023 Influenza, High-dose Seasonal, Quadrivalent, Preservative Free Daniel Martineztrick [employer] Work Phone: [facility] 08-14-2023 influenza virus vaccine, unspecified formulation Daniel Cardoso [employer] Work Phone: [facility] Payers Date Payer Category Payer Medicaid [id number] 2024 Medicare [id number] 2024 Self-pay 2023 Medicare O ANTHEM MEDICARE [id number] 2021 Medicare (Managed Care) [facility] [id number] 2021 Unknown [id number] 2016 Medicare [id number] 1959 Unknown [id number] 1953 Unknown [id number] [id number]. 593 1953 Unknown [id number] [id number]. 593 1953 Unknown [id number] 2.16.840.1.972092.3.579.2. 593 1953 Unknown [id number] 2.16.840.1.312046.3.579.2. 727 1953 Unknown [id number] 2.16.840.1.489309.3.579.2. 727 1953 Unknown [id number] 2.16.840.1.179097.3.579.2. 732 1953 Unknown [id number] 2.16.840.1.933598.3.579.2. 1259 1953 Unknown [id number] 2.16.840.1.975982.3.579.2. 1259 1953 Unknown [id number] 2.16.840.1.203319.3.579.2. 1259 1953 Unknown [id number] 2.16.840.1.389344.3.579.2. 1259 1953 Unknown [id number] 2.16.840.1.556946.3.579.2. 1259 1953 Unknown [id number] 2.16.840.1.819139.3.579.2. 1259 1953 Unknown [id number] 2.16.840.1.519964.3.579.2. 1259 Unknown [id number] [id number]. 531 Social History Date Type Detail Facility Tobacco smoking status [facility] Start: 06-21-2024 End: 02-06-2025 Sex Assigned At Female [facility] Start: 06-21-2024 Tobacco smoking stat us NHIS Smokes tobacco daily [facility] History of tobacco use Cigarette Smoker [facility] History of tobacco use Passive smoker [facility] Start: 11-29-2019 End: 06-21-2024 Tobacco use and exposure Smokeless tobacco non-user [facility] Start: 06-21-2024 End: 02-06-2025 Alcoholic beverage intake Lifetime non-drinker (finding) [facility] Start: 06-21-2024 End: 02-06-2025 History of Social function [facility] Start: 10-17-2023 Alcohol Comment Caffeine: 2-3 cups per day [facility] Start: 1955 Sex assigned at Not on file [facility] Start: 12-13-2024 Tobacco smoking stat us HIIS Unknown if ever smoked [facility] Start: 12-14-2024 End: 01-04-2025 Sex Female (finding) [facility] Start: 1955 Sex Assigned At [facility] Start: 11-29-2019 End: 01-04-2025 Tobacco smoking status NHIS Ex-smoker [facility] History of tobacco use Current smoker [facility] Start: 02-19-2021 Alcoholic beverage intake Current non-drinker of alcohol (finding) [facility] Childcare Unknown [facility] Medical Equipment Procedure Code Equipment Code Equipment Origin al Text Equipment Identifier Dates [id number] Start: 11-21-2023 End: 11-20-2024 1 each in the morning. [id number] Start: 11-21-2023 End: 11-20-2024 1 each by In Vit ro route Daily [id number] Start: 01-30-2025 End: 01-30-2026 Goals Date Patient Goal Desired Activity /State Functional Status Date Assessment Result Facility 12-14-2024 Functional status Patient at Baseline [facility] Work Phone: Mental Status Date Assessment Result Facility 12-14-2024 Cognitive function Cognitive Sta tus Patient at Baseline [facility] Work Phone: Clinical Notes 09-11-2024 to 02-06-2025 La Pack NP - 02/06/2025 10:25 AM EDMARIAJOSE HERNANDEZ - 02/06/2025 10:00 AM Paradise Pack NP - 02/06/2025 10:00 AM Paradise Pack NP - 02/06/2025 6:32 AM EDTPatient Instructions Note Date & Type Note Facility 02-06-2025 History of Presen t illness Narrative Associated Problem(s): Acute hypoxic respiratory failure (CMS/HCC) Wears oxygen at home Inhalers: trelegy, albuterol Pt states that the home health nurse came in on Tuesday checked her lungs and stated that her lungs were clear. That was in last official visit. Pt still has a persistent wet cough. Pt fell about 2-3 weeks ago-tripped over 02 cord and fell hit her top right head. 02 is set to 3L Images from the original note were not included. Julian Montaño is a 69 y.o. female presents with chief complaint of No chief complaint on file. HPI: Hypertension This is a chronic problem. The current episode started more than 1 year ago. The problem is unchanged. The problem is controlled. Associated symptoms include anxiety and shortness of breath. Pertinent negatives include no chest pain, headaches, palpitations or peripheral edema. There are no associated agents to hypertension. Risk factors for coronary artery disease include diabetes mellitus, dyslipidemia and sedentary lifestyle. Past treatments include angiotensin blockers. The current treatment provides significant improvement. There are no compliance problems. There is no history of CAD/OK. Diabetes She presents for her follow-up diabetic visit. She has type 2 diabetes mellitus. Her disease course has been stable. Hypoglycemia symptoms include nervousness/anxiousness. Pertinent negatives for hypoglycemia include no dizziness, headaches, seizures or tremors. Associated symptoms include polydipsia and polyuria. Pertinent negatives for diabetes include no chest pain, no foot paresthesias, no polyphagia and no visual change. There are no hypoglycemic complications. Symptoms are stable. There are no diabetic complications. Pertinent negatives for diabetic complications include no peripheral neuropathy. Risk factors for coronary artery disease include diabetes mellitus, dyslipidemia, hypertension and sedentary lifestyle. Current diabetic treatment includes oral agent (monotherapy). She is compliant with treatment all of the time. Her overall blood glucose range is 110-130 mg/dl. An LALITA inhibitor/angiotensin II receptor alysha is being taken. She does not see a furniture detailer.Eye exam is current. Depression Visit Type: follow-up Patient presents with the following symptoms: depressed mood (occ), nervousness/anxiety and shortness of breath. Patient is not experiencing: anhedonia, decreased concentration, excessive worry, fatigue, feelings of hopelessness, insomnia, irritability, memory impairment, muscle tension, palpitations, suicidal ideas, suicidal planning and thoughts of . Frequency of symptoms: occasionally Severity: mild Sleep quality: good Nighttime awakenings: none Compliance with medications: 76-100% Anxiety Presents for follow-up visit. Symptoms include depressed mood (occ), nervous/anxious behavior and shortness of breath. Patient reports no chest pain, decreased concentration, dizziness, excessive worry, insomnia, irritability, muscle tension, nausea, palpitations or suicidal ideas. Symptoms occur occasionally. The severity of symptoms is mild. The patient sleeps 7 hours per night. The quality of sleep is good. Nighttime awakenings: none. Compliance with medications is 76-100%. SUBJECTIVE: MEDICATIONS: Current Outpatient Medications Medication Instructions albuterol HFA 90 mcg/act inhaler 2 puffs, Inhalation, Every 4 hours PRN albuterol 2.5 mg, Every 6 hours PRN atorvastatin (LIPITOR) 40 mg, Oral, Daily cholecalciferol (VITAMIN D-3) 50 mcg, Oral, Daily ferrous sulfate (FE TABS) 325 mg, Oral, Daily with breakfast, Do not crush, chew, or split. Cdemaopzkzl-Iijsqnjfm-Nedtgl (Trelegy Ellipta) 200-62.5-25 MCG/ACT aerosol powder 1 Inhalation, Inhalation, Daily Glucose Blood (Blood Glucose Test) strip 1 each, In Vitro, Daily LORazepam (ATIVAN) 0.5 mg, Oral, 3 times daily PRN losartan (COZAAR) 50 mg, Daily metFORMIN (GLUCOPHAGE) 500 mg, Oral, Daily omeprazole (PRILOSEC) 20 mg, Oral, Daily sertraline (ZOLOFT) 50 mg, Oral, Daily ALLERGIES: No Known Allergies REVIEW OF SYMPTOMS: Review of Systems Constitutional: Negative for appetite change, chills, fever and irritability. HENT: Negative for congestion, ear pain and sore throat. Eyes: Negative for pain, discharge, redness and visual disturbance. Respiratory: Positive for shortness of breath. Negative for cough and wheezing. Cardiovascular: Negative for chest pain, palpitations and leg swelling. Gastrointestinal: Negative for abdominal pain, blood in stool, constipation, diarrhea, nausea and vomiting. Genitourinary: Negative for difficulty urinating, dysuria and frequency. Musculoskeletal: Negative for arthralgias, back pain, joint swelling and myalgias. Skin: Negative for rash and wound. Neurological: Negative for dizziness, tremors, seizures, syncope and headaches. Psychiatric/Behavioral: Positive for depression. Negative for behavioral problems, decreased concentration, self-injury and suicidal ideas. The patient is nervous/anxious. The patient does not have insomnia. Hematological: Does not bruise/bleed easily. Endocrine: Positive for polydipsia and polyuria. Negative for polyphagia. Allergic/Immunologic: Negative for environmental allergies and food allergies. 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 OBJECTIVE: Visit Vitals BP 124/72 (BP Location: Right arm, Patient Position: Sitting, BP Cuff Size: Adult long) Pulse 80 Temp 98.1 F (Temporal) Resp 20 Wt 141 lb 6.4 oz SpO2 97% Comment: with 3L of 02 on BMI 25.05 kg/m OB Status Postmenopausal Smoking Status Every Day BSA 1.69 m Physical Exam Vitals and nursing note reviewed. Constitutional: General: She is not in acute distress. Appearance: Normal appearance. She is ill-appearing (chronically). HENT: Head: Normocephalic and atraumatic. Right Ear: External ear normal. Left Ear: External ear normal. Nose: Nose normal. Mouth/Throat: Mouth: Mucous membranes are moist. Eyes: Extraocular Movements: Extraocular movements intact. Conjunctiva/sclera: Conjunctivae normal. Neck: Vascular: No carotid bruit. Cardiovascular: Rate and Rhythm: Normal rate and regular rhythm. Pulses: Normal pulses. Heart sounds: Normal heart sounds. Pulmonary: Effort: Pulmonary effort is normal. Breath sounds: Normal breath sounds. No wheezing. Abdominal: General: Bowel sounds are normal. There is no distension. Palpations: Abdomen is soft. There is no mass. Tenderness: There is no abdominal tenderness. Musculoskeletal: General: Normal range of motion. Cervical back: Normal range of motion and neck supple. Right lower leg: No edema. Left lower leg: No edema. Lymphadenopathy: Cervical: No cervical adenopathy. Skin: General: Skin is warm and dry. Capillary Refill: Capillary refill takes 2 to 3 seconds. Findings: No rash. Neurological: General: No focal deficit present. Mental Status: She is alert and oriented to person, place, and time. Comments: Walks with walker Psychiatric: Mood and Affect: Mood normal. Behavior: Behavior normal. Thought Content: Thought content normal. Judgment: Judgment normal. ASSESSMENT AND PLAN: Follow up in about 3 months (around 05/09/2025) for Recheck. Problem List Items Addressed This Visit Other hyperlipidemia ([facility]) On statin therapy Check labs yearly and prn dose changes Relevant Orders Lipid panel 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 loss Takes supplement daily Check labs Relevant Orders CBC and differential Iron + transferrin + TIBC Ferritin Type 2 diabetes mellitus without complication, without long-term current use of insulin ([facility]) Check blood sugars daily, notify if <70 [...] diet low in carbohydrates, and simple sugars. Current med: arb, metformin, statin Relevant Orders Comprehensive metabolic panel Urinalysis with reflex microscopic (clean catch) Microalbumin / creatinine, urine ratio Hemoglobin A1c Recurrent major depressive disorder, in full remission ([facility]) Takes sertraline daily Screening mammogram, encounter for Relevant Orders Bilateral screening mammogram COPD (chronic obstructive pulmonary disease) (CMS/HCC) - Primary Wears oxygen at home Current meds: albuterol, trelegy Primary hypertension (CMS/HCC) Please check blood pressure daily and record DASH diet Limit caffeine Take medication as directed Contact office if chest pain, pressure, dizziness, shortness of breath, swelling legs Recommend slow position changes Current meds: losartan Relevant Orders Comprehensive metabolic panel Urinalysis with reflex microscopic (clean catch) Microalbumin / creatinine, urine ratio Vitamin D deficiency Taking supplement 2,000 international units daily Check labs Relevant Orders Vitamin D 25 hydroxy Acute hypoxic respiratory failure (CMS/HCC) Wears oxygen at home Inhalers: trelegy, albuterol Cigarette nicotine dependence without complication Has not smoked since [facility] Generalized anxiety disorder (CMS/HCC) Takes ativan prn, and sertraline Relevant Orders TSH Associated Problem(s): Other hyperlipidemia (CMS/HCC) On statin therapy Check labs yearly and prn dose changes Associated Problem(s): Generalized anxiety disorder (CMS/HCC) Takes ativan prn, and sertraline Associated Problem(s): Recurrent major depressive disorder, in full remission (CMS/HCC) Takes sertraline daily Associated Problem(s): Cigarette nicotine dependence without complication Has not smoked since [facility] Associated Problem(s): 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 loss Takes supplement daily Check labs Associated Problem(s): Vitamin D deficiency Taking supplement 2,000 international units daily Check labs Associated Problem(s): Type 2 diabetes mellitus without complication, without long-term current use of insulin ([facility]) Check blood sugars daily, notify if <70 [...] diet low in carbohydrates, and simple sugars. Current med: arb, metformin, statin Associated Problem(s): Primary hypertension ([facility]) Please check blood pressure daily and record DASH diet Limit caffeine Take medication as directed Contact office if chest pain, pressure, dizziness, shortness of breath, swelling legs Recommend slow position changes Current meds: losartan Associated Problem(s): COPD (chronic obstructive pulmonary disease) ([facility]) Wears oxygen at home Current meds: albuterol, trelegy documented in this encounter [facility] 02-06-2025 Instructions La Pack NP - 02/06/2025 10:00 AM EDT Get labs completed fasting 8 hours Mammogram we will fax order to [facility], if you dont hear from them in 2 weeks, call [phone] Great job on quitting smoking documented in this encounter [facility] 01-23-2025 History of Presen t illness Narrative Associated Problem(s): Scalp laceration, sequela No s/s infection Neuro exam is normal I do not suspect her fever is related to this Suspect possible resp Associated Problem(s): COPD exacerbation ([facility]) Will add augmentin, no cxr at this time, can cont albuterol prn and trelegy as directed Fluids, and encourage cough and deep breathing If worsening in sxs go to Er Images from the original note were not included. Julian Montaño is a 69 y.o. female presents with chief complaint of Suture / Staple Removal (head) HPI: [facility] ER on 01/14/25 for scalp lac, s/p fall after tripping on oxygen tube No loc, had 3 luis placed and her for removal. She denies any acute pain around the laceration site, no drainage. Does have some intermittent MERCADO's no dizziness or vision changes. She does also note that she has been running fever's 100, no abd pain, no urinary complaints, does have some sob, had to increase her oxygen from 2.5L to 3.5L. mucus can be white or yellow. No wheeze, no other sxs at this time. SUBJECTIVE: MEDICATIONS: Current Outpatient Medications Medication Instructions albuterol HFA 90 mcg/act inhaler 2 puffs, Inhalation, Every 4 hours PRN albuterol 2.5 mg, Every 6 hours PRN atorvastatin (LIPITOR) 40 mg, Oral, Daily cholecalciferol (VITAMIN D-3) 50 mcg, Oral, Daily ferrous sulfate (FE TABS) 325 mg, Oral, Daily with breakfast, Do not crush, chew, or split. Agcdbwqepzz-Bghrxqhlj-Vbevbv (Trelegy Ellipta) 200-62.5-25 MCG/ACT aerosol powder 1 Inhalation, Inhalation, Daily LORazepam (ATIVAN) 0.5 mg, Every 6 hours PRN LORazepam (ATIVAN) 0.5 mg, Oral, 3 times daily PRN losartan (COZAAR) 50 mg, Daily metFORMIN (GLUCOPHAGE) 500 mg, Oral, Daily omeprazole (PRILOSEC) 20 mg, Oral, Daily sertraline (ZOLOFT) 50 mg, Oral, Daily ALLERGIES: No Known Allergies REVIEW OF SYMPTOMS: Review of Systems Constitutional: Positive for fever. Negative for appetite change and chills. HENT: Negative for congestion, ear pain and sore throat. Eyes: Negative for pain, discharge, redness and visual disturbance. Respiratory: Positive for cough and shortness of breath. Negative for wheezing. Cardiovascular: Negative for chest pain, palpitations and leg swelling. Gastrointestinal: Negative for abdominal pain, blood in stool, constipation, diarrhea, nausea and vomiting. Genitourinary: Negative for difficulty urinating, dysuria and frequency. Musculoskeletal: Negative for arthralgias, back pain, joint swelling and myalgias. Skin: Positive for wound. Negative for rash. Neurological: Negative for dizziness, tremors, seizures, syncope and headaches. Psychiatric/Behavioral: Negative for behavioral problems, self-injury and suicidal ideas. The patient is not nervous/anxious. Hematological: Does not bruise/bleed easily. Endocrine: Negative for polydipsia, polyphagia and polyuria. Allergic/Immunologic: Negative for environmental allergies and food allergies. 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 OBJECTIVE: Visit Vitals BP 110/56 Pulse 98 Temp 97.8 F Resp 24 Ht 5' 3 Wt 142 lb SpO2 97% BMI 25.15 kg/m OB Status Postmenopausal Smoking Status Every Day BSA 1.69 m Physical Exam Vitals and nursing note reviewed. Constitutional: General: She is not in acute distress. Appearance: Normal appearance. She is ill-appearing (chronically). She is not toxic-appearing. HENT: Head: Normocephalic and atraumatic. Right Ear: Tympanic membrane, ear canal and external ear normal. Left Ear: Tympanic membrane, ear canal and external ear normal. Nose: Rhinorrhea present. Mouth/Throat: Mouth: Mucous membranes are moist. Pharynx: No oropharyngeal exudate or posterior oropharyngeal erythema. Eyes: Extraocular Movements: Extraocular movements intact. Conjunctiva/sclera: Conjunctivae normal. Neck: Vascular: No carotid bruit. Cardiovascular: Rate and Rhythm: Normal rate and regular rhythm. Pulses: Normal pulses. Heart sounds: Normal heart sounds. Pulmonary: Effort: Pulmonary effort is normal. Breath sounds: Rhonchi present. Comments: Diminished Wearing oxygen Abdominal: General: Bowel sounds are normal. There is no distension. Palpations: Abdomen is soft. There is no mass. Tenderness: There is no abdominal tenderness. Musculoskeletal: General: Normal range of motion. Cervical back: Normal range of motion and neck supple. Right lower leg: Edema present. Left lower leg: Edema present. Comments: Trace pre tibial Calves soft and non tender bilat Lymphadenopathy: Cervical: No cervical adenopathy. Skin: General: Skin is warm and dry. Capillary Refill: Capillary refill takes 2 to 3 seconds. Findings: No rash. Comments: Right frontal scalp lac: no s/s infection . 3 luis intact, removed, tolerated well edges remain approx Neurological: General: No focal deficit present. Mental Status: She is alert and oriented to person, place, and time. Psychiatric: Mood and Affect: Mood normal. Behavior: Behavior normal. Thought Content: Thought content normal. Judgment: Judgment normal. ASSESSMENT AND PLAN: No follow-ups on file. Problem List Items Addressed This Visit Cigarette nicotine dependence without complication - Primary The patient has been advised of the risks of continued smoking: stroke, OK, all forms of cancer, lung disease, and . Options for quitting smoking include: cold turkey, hypnosis, acupuncture, nicotine replacement meds (gum, lozenges, and patches), Buproprion, and Varenicline. At this time pt is encouraged to evaluate their goals for wanting to quit smoking, and reach out to provider when ready to start this process Scalp laceration, sequela No s/s infection Neuro exam is normal I do not suspect her fever is related to this Suspect possible resp COPD exacerbation (CMS/[facility]) Will add augmentin, no cxr at this time, can cont albuterol prn and trelegy as directed Fluids, and encourage cough and deep breathing If worsening in sxs go to Er Relevant Medications amoxicillin-clavulanate (Augmentin) 875-125 MG tablet Associated Problem(s): Cigarette nicotine dependence without complication The patient has been advised of the risks of continued smoking: stroke, OK, all forms of cancer, lung disease, and . Options for quitting smoking include: cold turkey, hypnosis, acupuncture, nicotine replacement meds (gum, lozenges, and patches), Buproprion, and Varenicline. At this time pt is encouraged to evaluate their goals for wanting to quit smoking, and reach out to provider when ready to start this process documented in this encounter [facility] 01-23-2025 Instructions La Pack NP - 01/23/2025 11:30 AM EDT May wash hair, Take augmentin atb as directed, fluids, encourage cough and deep breathing If worsening breathing go to ER documented in this encounter [facility] 01-14-2025 History of Presen t illness Narrative Associated Problem(s): Type 2 diabetes mellitus without complication, without long-term current use of insulin ([facility]) BS controlled and monitor. Stick to ADA diet and limit carbs. Associated Problem(s): Primary hypertension ([facility]) BP controlled and monitor PRN. Associated Problem(s): Influenza A Recent infection but improved and monitor. Associated Problem(s): COPD (chronic obstructive pulmonary disease) ([facility]) Breathing stable and continue inhalers. Use albuterol nebulized PRN. Script for new nebulizer machine to patient. Associated Problem(s): Acute hypoxic respiratory failure ([facility]) SpO2 stable and wean oxygen as tolerated. Images from the original note were not included. Subjective Patient ID: Julian Montaño is a 69 y.o. female who presents for Follow-up (Hospital f/u), Sore Throat, and Earache (Right ear). Follow up from hospital and SNF. Patient found unresponsive at home and intubated by EMS. Brought to [facility] then [place] [facility] [place] 12[place]09-12[place]14 and treated [...] complication, without long-term current use of insulin ([facility]) BS controlled and monitor. Stick to ADA diet and limit carbs. COPD (chronic obstructive pulmonary disease) (CMS/HCC) Breathing stable and continue inhalers. Use albuterol nebulized PRN. Script for new nebulizer machine to patient. Relevant Medications albuterol HFA 90 mcg/act inhaler Primary hypertension (CMS/HCC) BP controlled and monitor PRN. Acute hypoxic respiratory failure (CMS/HCC) SpO2 stable and wean oxygen as tolerated. Influenza A - Primary Recent infection but improved and monitor. documented in this encounter [facility] 01-01-2025 History of Presen t illness Narrative Patient Name: Julian Montaño Date of : 1955 Date of Service: 01/01/2025 Facility: [facility] [place] Type of Visit: Skilled Visit Subjective Julian Montaño is a 69 y.o. female seen today at [facility] visit. Julian is participating in therapy and doing well. [...] Exam Vitals reviewed. Exam conducted with a human resources leader present (Priyank Ward MS3). Constitutional: General: She [...] 1. Acute hypoxic respiratory failure (CMS-HCC) 2. Aspiration pneumonia, unspecified aspiration pneumonia type, unspecified laterality, unspecified part of lung ([facility]) 3. Chronic obstructive pulmonary disease, unspecified COPD type [place] 4. Influenza A 5. Type 2 diabetes mellitus without complication, without long-term current use of insulin [place] 6. Other abnormalities of gait and mobility 7. Anxiety Julian will be discharged later this week. She [...] Stephen Macias DO documented in this encounter [facility] 12-28-2024 History of Presen t illness Narrative Patient Name: Julian Montaño Date of : 1955 Date of Service: 12/28/2024 Facility: [facility] [place] Type of Visit: Skilled Visit Subjective Julian Montñao is a 69 y.o. female seen today at [facility] for therapy visit. Julian is in therapy. She is slowly improving. Staff is needing a ykme-pi-macz visit to document her oxygen in wheelchair [...] Exam Vitals reviewed. Exam conducted with a human resources leader present (Priyank Ward MS3). Constitutional: General: She [...] 4. Other abnormalities of gait and mobility Julian is going to be discharged soon. She [...] Stephen Macias DO documented in this encounter [facility] 12-25-2024 History of Presen t illness Narrative Patient Name: Julian Montaño Date of : 1955 Date of Service: 12/25/2024 Facility: [facility] [place] Type of Visit: Skilled Visit Subjective Julian Montaño is a 69 y.o. female seen today at [facility] therapy visit. Julian is participating in therapy. She has no [...] Exam Vitals reviewed. Exam conducted with a human resources leader present (Priyank Ward MS3). Constitutional: General: She [...] Stephen Macias DO documented in this encounter [facility] 12-18-2024 History of Presen t illness Narrative Patient Name: Julian Montaño Date of : 1955 Date of Service: 12/18/2024 Facility: [facility] [place] Type of Visit: Admission H&P Subjective Julian Montaño is a 69 y.o. female seen today at [facility] for admission H&PLakeisha Gardiner presents to [facility] for therapy following hospitalization at [facility]. She was diagnosed with acute hypoxic [...] Past Medical History: Diagnosis Date Acoustic neuroma (CMS-HCC) Anemia Asymmetric SNHL (sensorineural hearing loss) Benign neoplasm of cranial nerve (CMS-HCC) Bilateral cataracts Chronic bronchitis (CMS-HCC) Chronic cough Constipation COPD (chronic obstructive pulmonary disease) (CMS-HCC) Depression Diabetes mellitus (CMS-HCC) history of GERD (gastroesophageal reflux disease) Hemorrhoids History of brain tumor removed in 1997, came back 2018 Hyperlipidemia Hypertension Macular degeneration Osteoarthritis of hip Personal history of tobacco use Positive occult stool blood test Right acoustic neuroma (CMS-HCC) Splenic sequestration Vitamin D deficiency Past Surgical [...] Exam Vitals reviewed. Exam conducted with a human resources leader present (Priyank Ward MS3). Constitutional: General: She [...] / Plan 1. Acute hypoxic respiratory failure [place] 2. Chronic obstructive pulmonary disease, unspecified COPD type [place] 3. Influenza A 4. Aspiration pneumonia, unspecified aspiration pneumonia type, unspecified laterality, unspecified part of lung ([facility] 5. Depression, unspecified depression type 6. Cigarette smoker 7. Type 2 diabetes mellitus without complication, without long-term current use of insulin ([facility] 8. Anxiety Admit to [facility] for therapies. Finish antibiotic, [...] Stephen Macias DO documented in this encounter [facility] 12-14-2024 Discharge summary Note Date/Time December 14, 2024 2:47pm [facility] [address] [place] [address] Discharge Summary Signed Patient: Julian Montaño MR#: [id number] : 1955 Acct:[id number] Age/Sex: 69 / F Adm Date: 5 Loc: Room: [address] [place] [address]: Daniel Garza MD Copies to: MD Daniel Cruz, EDITOR SOUND-C~ Providers Date of Discharge: 12/14/24 Discharging Provider: [...] as GERD and depression. Patient came to [facility] after she was intubated by the [...] vomiting and no other concerns as per [facility] documentation. Labs at [facility] showed CBC with leukocytosis and left shift, [...] signs ofUTI. Her ABG was done at [facility] ER showed pH of 7.16 as well as PaCO2 of 71.5. She was intubated by EMS, was given 100 mg of succinylcholine 60 mg of ketamine and then 50 mg of fentanyl and 5 mg of Versed as well as 6.4 mg of Elconin. Also they reached out to cardiology at [facility] recommending again heparinization. EKG showed sinus tachycardia [...] started on bronchodilator steroid antibiotics and oseltamivir. Custom Shop Worker was consulted who recommended continuing the same. [...] troponin likely in setting of type II OK. Follow-up echo showed normal ejection fraction of 65 to 70% with normal wall motion. PMR was consulted for possible inpatient rehab who recommended discharge to [facility]. Patient was waiting for pre-CERT to [facility] and is finally approved and is being dischargedthere. Condition Condition at Discharge: Stable Time Spent with Patient Time spent providing/coordinating discharge services (# min): 38 Discharge Plan Discharge Plan Patient Disposition: Long Term Facility Additional Instructions: Long Term Facility to manage care: - Full code [...] aerosol inhaler INHALATION sertraline 50 mg tablet Tosin Ochoata 200-62.5-25 mcg blister with device INHALATION Follow Up: Daniel Cardoso, EDITOR SOUND-C [Primary Care Provider] - (Follow-up with your Primary Care Provider after discharge from Long Term Facility) Exam Physical Exam Vital Signs: Temp Pulse Resp BP Pulse Ox O2 Del Method O2 Flow Rate 97.5 F L 91 18 104/57 L 90 L Nasal Cannula 4 12/14/24 09:25 12/14/24 14:05 12/14/24 14:05 12/14/24 09:25 12/14/24 09:25 12/14/24 09:12/14/24 09: FiO2 40 12/11/24 12:00 Narrative: [...] % (Auto) 84.6, Lymph % (Auto) 7.0, [place] % (Auto) 8.2, Eos % (Auto) 0.0, Baso % (Auto) 0.2, Nucleat RBC Rel Count 0.1, Neut # (Auto) 7.2, Lymph # (Auto) 0.6 L, [place] # (Auto) 0.7, Eos # (Auto) 0.0, [...] Glucose 141 Documented By: Daniel Garza MD 12/14/241442 Signed By: <Electronically signed by Daniel Garza MD> 12/14/24 144 [facility] Work Phone: 1(660) 798-297801-31-2025 Progress note Author Daniel Garza [facility] Note Date/Time December 14, 2024 1 :58pm [facility] [address] [place] [address] Hospitalist Progress Note Signed Patient: Julian Montaño MR#: [id number] : 1955 Acct:[id number] Age/Sex: 69 / F Adm Date: 5 Loc: Room: [address] [place] [address] Type: ADM IN Attending Dr: Daniel Garza MD Copies to: ~ Date of Service: 12/14/2024 Subjective Subjective Narrative: This is a 69 y.o female with past medical history of COPD, dyslipidemia, hypertension, type 2 diabetes as well as GERD and depression. Patient came to [facility] after she was intubated by the [...] vomiting and no other concerns as per [facility] documentation. Labs at [facility] showed CBC with leukocytosis and left shift, [...] signs ofUTI. Her ABG was done at [facility] ER showed pH of 7.16 as well as PaCO2 of 71.5. She was intubated by EMS, was given 100 mg of succinylcholine 60 mg of ketamine and then 50 mg of fentanyl and 5 mg of Versed as well as 6.4 mg of Elconin. Also they reached out to cardiology at [facility] recommending again heparinization. EKG showed sinus tachycardia [...] started on bronchodilator steroid antibiotics and oseltamivir. Custom Shop Worker was consulted who recommended continuing the same. [...] no water. Elevated troponin likely type 2 OK -Continue on steroids, bronchodilator, oseltamivir and antibiotics -ICU consult-appreciate recommendation -As per her daughter, pt does not drink alcohol or use drugs, She is a very active smoker -HSQ for DVT prophylaxis -Pantoprazole IV 40 mg daily for GI prophylaxis -Full code -consulted cardio-believes elevated troponin likely in setting of type II OK. Follow-up echo showed normal ejection fraction of 65 to 70% with normal wall motion -PMR was consulted who recommended discharge to [facility]. Full code Documented By: Daniel Garza MD 12/14/24 7973 Signed By: <Electronically signed by Daniel Garza MD> 12/14/24 6438 [facility] Work Phone: 1(315) 505-941701-31-2025 Progress note Author Cecilia Ruiz [facility] Note Date/Time December 14, 2024 1 :18pm [facility] [address] [place] [address] Pulmonology Progress Note Signed Patient: Julian Montaño MR#: [id number] : 1955 Acct:[id number] Age/Sex: 69 / F Adm Date: 5 Loc: Room: [address] [place] [address] Type: ADM IN Attending Dr: Daniel Garza [...] By: <Electronically signed by Cecilia Ruiz MD> 12/14/24 1318 [facility] Work Phone: 1(482) 856-928501-31-2025 [place] [id number] Discharge Summary Signed Patient: Julian Montaño MR#: [id number] : 1955 Acct:[id number] Age/Sex: 69 / F Adm Date: 5 Loc: Room: [address] [place] [address]: Daniel Garza MD Copies to: MD Daniel Cruz, EDITOR SOUND-C~ Providers Date of Discharge: 12/14/24 Discharging Provider: Daniel Garza Primary Care Provider: Daniel Cardoso Consults: 12/09/24 22:31 Consult to Pulmonology Routine Comment: Consulting Provider: Cecilia Ruiz Reason For Exam: critical care Has Provider Been Notified: Yes Date of Notification: 12/10/24 Time of Notification: 07:49 12/10/24 06:00 Consult to Cardiology Routine Comment: Consulting Provider: EDMUNDO - Cardiology Reason For Exam: elevated trop [...] as GERD and depression. Patient came to [facility] ER after she was intubated by the [...] vomiting and no other concerns as per [facility] documentation. Labs at [facility] showed CBC with leukocytosis and left shift, [...] no signs ofUTI. Her ABG wasdone at [facility] ER showed pH of 7.16 as well as PaCO2 of 71.5. She was intubated by EMS, was given 100 mg of succinylcholine 60 mg of ketamine and then 50 mg of fentanyl and 5 mg of Versed as well as 6.4 mg of Elconin. Also they reached out to cardiology at [facility] recommending again heparinization. EKG showed sinus tachycardia [...] started on bronchodilator steroid antibiotics and oseltamivir. Custom Shop Worker was consulted who recommended continuing the same. [...] troponin likely in setting of type II OK. Follow-up echo showed normal ejection fraction of 65 to 70% with normal wall motion. PMR was consulted for possible inpatient rehab who recommended [facility]. Patient was waiting for pre-CERT to [facility] and is finally approved and isbeing dischargedthere. Condition Condition at Discharge: Stable Time Spent with Patient Time spent providing/coordinating discharge services (# min): 38 Discharge Plan Discharge Plan Patient Disposition: Long Term Facility Additional Instructions: Long Term Facility to manage care: - Full code [...] blister with device INHALATION Follow Up: Daniel Cardoso NP-C [Primary Care Provider] - (Follow-up with your Primary Care Provider after discharge from Long Term Facility) Exam Physical Exam Vital Signs: Temp [...] % (Auto) 84.6, Lymph % (Auto) 7.0, [place] % (Auto) 8.2, Eos % (Auto) 0.0, Baso % (Auto) 0.2, Nucleat RBC Rel Count 0.1, Neut # (Auto) 7.2, Lymph # (Auto) 0.6 L, [place] # (Auto) 0.7, Eos # (Auto) 0.0, [...] Glucose 141 Documented By: Daniel Garza MD 12/14/241442 Signed By: 12/14/24 1447 [facility]01-31-2025 [place] [address] Hospitalist Progress Note Signed Patient: Julian Montaño MR#: [id number] : 1955 Acct:[id number] Age/Sex: 69 / F Adm Date: 5 Loc: Room: [address] [place] [address] Type: ADM IN Attending Dr: Daniel Garza MD Copies to: ~ Date of Service: 12/14/2024 Subjective Subjective Narrative: This is a 69 y.o female with past medical history of COPD, dyslipidemia, hypertension, type 2 diabetes as well as GERD and depression. Patient came to [facility] ER after she was intubated by the [...] vomiting and no other concerns as per [facility] documentation. Labs at [facility] showed CBC with leukocytosis and left shift, [...] no signs ofUTI. Her ABG wasdone at [facility] ER showed pH of 7.16 as well as PaCO2 of 71.5. She was intubated by EMS, was given 100 mg of succinylcholine 60 mg of ketamine and then 50 mg of fentanyl and 5 mg of Versed as well as 6.4 mg of Elconin. Also they reached out to cardiology at [facility] recommending again heparinization. EKG showed sinus tachycardia [...] started on bronchodilator steroid antibiotics and oseltamivir. Custom Shop Worker was consulted who recommended continuing the same. [...] no water. Elevated troponin likely type 2 OK -Continue on steroids, bronchodilator, oseltamivir and antibiotics -ICU consult-appreciate recommendation -As per her daughter, pt does not drink alcohol or use drugs, She is a very active smoker -HSQ for DVT prophylaxis -Pantoprazole IV 40 mg daily for GI prophylaxis -Full code -consulted cardio-believes elevated troponin likely in setting of type II OK. Follow-up echo showednormal ejection fraction of 65 to 70% with normal wall motion -PMR was consulted who recommended discharge to [facility]. Full code Documented By: Daniel Garza MD 12/14/24 1356 Signed By: 12/14/24 1358 [facility]01-31-2025 [place] [address] Pulmonology Progress Note Signed Patient: Julian Montaño MR#: [id number] : 1955 Acct:[id number] Age/Sex: 69 / F Adm Date: 5 Loc: Room: [address] [place] [address] Type: ADM IN Attending Dr: Dainel Garza MD Copies to: ~ Date of [...] an outpatient. Documented By: Cecilia Ruiz MD 12/14/247 Signed By: 12/14/24 1318 [facility]01-30-2025 Progress note Author Cecilia Ruiz [facility] Note Date/Time December 13, 2024 1 :53pm [facility] [address] [place] [address] Pulmonology Progress Note Signed Patient: Julian Montaño MR#: [id number] : 1955 Acct:[id number] Age/Sex: 69 / F Adm Date: 5 Loc: Room: [address] [place] [address] Type: ADM IN Attending Dr: Daniel Garza [...] <Electronically signed by Cecilia Ruiz MD> 12/13/24 4473 [facility] Work Phone: [phone]) 597-575801-30-2025 Progress note Author Daniel Garza [facility] Note Date/Time December 13, 2024 1 :41pm [facility] [address] [place] [address] Hospitalist Progress Note Signed Patient: Julian Montaño MR#: [id number] : 1955 Acct:[id number] Age/Sex: 69 / F Adm Date: 5 Loc: Room: [address] [place] [address] Type: ADM IN Attending Dr: Daniel Garza MD Copies to: ~ Date of Service: 12/13/2024 Subjective Subjective Narrative: This is a 69 y.o female with past medical history of COPD, dyslipidemia, hypertension, type 2 diabetes as well as GERD and depression. Patient came to [facility] after she was intubated by the [...] vomiting and no other concerns as per [facility] documentation. Labs at [facility] showed CBC with leukocytosis and left shift, [...] signs ofUTI. Her ABG was done at [facility] ER showed pH of 7.16 as well as PaCO2 of 71.5. She was intubated by EMS, was given 100 mg of succinylcholine 60 mg of ketamine and then 50 mg of fentanyl and 5 mg of Versed as well as 6.4 mg of Elconin. Also they reached out to cardiology at [facility] recommending again heparinization. EKG showed sinus tachycardia [...] started on bronchodilator steroid antibiotics and oseltamivir. Custom Shop Worker was consulted who recommended continuing the same. [...] no water. Elevated troponin likely type 2 OK -Continue on steroids, bronchodilator, oseltamivir and antibiotics -ICU consult-appreciate recommendation -As per her daughter, pt does not drink alcohol or use drugs, She is a very active smoker -HSQ for DVT prophylaxis -Pantoprazole IV 40 mg daily for GI prophylaxis -Full code -consulted cardio-believes elevated troponin likely in setting of type II OK. Follow-up echo showed normal ejection fraction of 65 to 70% with normal wall motion -PMR was consulted who [place] [facility]. Full code Documented By: Daniel Garza MD 12/13/24 8179 Signed By: <Electronically signed by Daniel Garza MD> 12/13/24 1341 [facility] Work Phone: 1(400) 852-535201-30-2025 Consult note Author Dave Bazan [facility] Note Date/Time December 13, 2024 1 :29pm [facility] [address] [place] [address] Physiatry (Rehab) Consult Note Signed Patient: Julian Montaño MR#: [id number] : 1955 Acct:[id number] Age/Sex: 69 / F Adm Date: 5 Loc: Room: [address] [place] [address] Type: ADM IN Attending Dr: Daniel Garza MD Copies to: MD Daniel Cruz, SILVER Bazan MD~ HPI Consult Date: 12/13/24 Requesting Physician: Daniel Garza MD Primary Care Provider: SILVER Francois Consult Narrative HPI: Ms. Montaño is a 69 year old female with PMH COPD, dyslipidemia, hypertension, type2 diabetes as well as GERD and depression. [place] [facility] [facility] after being found unresponsive and being intubated [...] unless noted below or in HPI [facility] Medical History Depressed Acute hypoxic respiratory failure [...] % (Auto) 87.0 Lymph % (Auto) 6.4 [place] % (Auto) 6.5 Eos % (Auto) 0.0 Baso % (Auto) 0.1 Nucleat RBC Rel Count 0.1 Neut # (Auto) 9.3 H Lymph # (Auto) 0.7 L [place] # (Auto) 0.7 Eos # (Auto) 0.0 [...] MPV Neut % (Auto) Lymph % (Auto) [place] % (Auto) Eos % (Auto) Baso % (Auto) Nucleat RBC Rel Count Neut # (Auto) Lymph # (Auto) [place] # (Auto) Eos # (Auto) Baso # [...] this patient on discharge [facility] be a [place] [facility]. She does not meet inpatient rehab [...] chart, including current orders, allied health and quality improvement consultant notes, labs/imaging and performed barrow elements of exam and I formulated the plan of care and facilitated the medical decision making. I completed a substantive portion of this encounter, the medical decision making portion of this note in its entirety, including Allied health note review, nursing note review, quality improvement consultant note review, discussion with nursing and case management, and more than 50% of my time was spent on counseling and coordination of care, time spent 45 minutes Documented By: Dave Bazan MD [id number] Signed By: <Electronically signed by Dave Bazan MD> 12/13/24 1328 [facility] Work Phone: 1(535) 637-155001-30-2025 [place] [address] Pulmonology Progress Note Signed Patient: Julian Montaño MR#: [id number] : 1955 Acct:[id number] Age/Sex: 69 / F Adm Date: 5 Loc: Room: [address] [place] [address] Type: ADM IN Attending Dr: Daniel Garza [...] MD 12/13/24 1351 Signed By: 12/13/24 1353 [facility]01-30-2025 [place] [address] Hospitalist Progress Note Signed Patient: Julian Montaño MR#: [id number] : 1955 Acct:[id number] Age/Sex: 69 / F Adm Date: 5 Loc: Room: [address] [place] [address] Type: ADM IN Attending Dr: Daniel Garza MD Copies to: ~ Date of Service: 12/13/2024 Subjective Subjective Narrative: This is a 69 y.o female with past medical history of COPD, dyslipidemia, hypertension, type 2 diabetes as well as GERD and depression. Patient came to [facility] ER after she was intubated by the [...] vomiting and no other concerns as per [facility] documentation. Labs at [facility] showed CBC with leukocytosis and left shift, [...] no signs ofUTI. Her ABG wasdone at [facility] ER showed pH of 7.16 as well as PaCO2 of 71.5. She was intubated by EMS, was given 100 mg of succinylcholine 60 mg of ketamine and then 50 mg of fentanyl and 5 mg of Versed as well as 6.4 mg of Elconin. Also they reached out to cardiology at [facility] recommending again heparinization. EKG showed sinus tachycardia [...] started on bronchodilator steroid antibiotics and oseltamivir. Custom Shop Worker was consulted who recommended continuing the same. [...] no water. Elevated troponin likely type 2 OK -Continue on steroids, bronchodilator, oseltamivir and antibiotics -ICU consult-appreciate recommendation -As per her daughter, pt does not drink alcohol or use drugs, She is a very active smoker -HSQ for DVT prophylaxis -Pantoprazole IV 40 mg daily for GI prophylaxis -Full code -consulted cardio-believes elevated troponin likely in setting of type II OK. Follow-up echo showednormal ejection fraction of 65 to 70% with normal wall motion -PMR was consulted who recommended [facility]. Full code Documented By: Daniel Garza MD 12/13/24 1337 Signed By: 12/13/24 1341 [facility]01-30-2025 [place] [address] Physiatry (Rehab) Consult Note Signed Patient: Julian Montaño MR#: [id number] : 1955 Acct:[id number] Age/Sex: 69 / F Adm Date: 5 Loc: Room: [address] [place] [address] Type: ADM IN Attending Dr: Daniel Garza MD Copies to: MD Daniel Cruz, EDITOR SOUNDShayyC Dave Bazan MD~ HPI Consult Date: 12/13/24 Requesting Physician: Daniel Garza MD Primary Care Provider: SILVER Francois Consult Narrative HPI: Ms. Montaño is a 69 year old female with PMH COPD, dyslipidemia, hypertension, type2 diabetes as well as GERD and depression. The patient was [place] [facility] [place] [facility] after being found unresponsive and being intubated [...] unless noted below or in HPI [facility] Medical History Depressed Acute hypoxic respiratory failure [...] 62.5 mcg-vilant 25 mcg inhalat.powder (Trelegy Ellipta) [id number]/27/25 [History] losartan 50 mg tablet mg 12/10/24 [...] % (Auto) 87.0 Lymph % (Auto) 6.4 [place] % (Auto) 6.5 Eos % (Auto) 0.0 Baso % (Auto) 0.1 Nucleat RBC Rel Count 0.1 Neut # (Auto) 9.3 H Lymph # (Auto) 0.7 L [place] # (Auto) 0.7 Eos # (Auto) 0.0 [...] MPV Neut % (Auto) Lymph % (Auto) [place] % (Auto) Eos % (Auto) Baso % (Auto) Nucleat RBC Rel Count Neut # (Auto) Lymph # (Auto) [place] # (Auto) Eos # (Auto) Baso # [...] this patient [place] discharge should be a [place] [facility]. She does not meet inpatient rehab [...] chart, including current orders, allied health and quality improvement consultant notes, labs/imaging and performed barrow elements of exam and I formulated the plan of care and facilitated the medical decision making. I completed a substantive portion of this encounter, the medical decision making portion of this note in its entirety, including Allied health note review, nursing note review, quality improvement consultant note review, discussion with nursing and case management, and more than 50% of my time was spent on counseling and coordination of care, time spent 45 minutes Documented By: Dave Bazan MD 1254 Signed By: 12/13/24 1329 [facility]01-29-2025 Progress note Author Daniel Garza [facility] Note Date/Time December 12, 2024 2 :45pm [facility] [address] [place] [address] Hospitalist Progress Note Signed Patient: Julian Montaño MR#: [id number] : 1955 Acct:[id number] Age/Sex: 69 / F Adm Date: 5 Loc: Room: [address] [place] [address] Type: ADM IN Attending Dr: Daniel Garza MD Copies to: ~ Date of Service: 12/12/2024 Subjective Subjective Narrative: This is a 69 y.o female with past medical history of COPD, dyslipidemia, hypertension, type 2 diabetes as well as GERD and depression. Patient came to [facility] ER after she was intubated by the [...] vomiting and no other concerns as per [facility] documentation. Labs at [facility] showed CBC with leukocytosis and left shift, [...] signs ofUTI. Her ABG was done at [facility] ER showed pH of 7.16 as well as PaCO2 of 71.5. She was intubated by EMS, was given 100 mg of succinylcholine 60 mg of ketamine and then 50 mg of fentanyl and 5 mg of Versed as well as 6.4 mg of Elconin. Also they reached out to cardiology at [facility] recommending again heparinization. EKG showed sinus tachycardia [...] started on bronchodilator steroid antibiotics and oseltamivir. Custom Shop Worker was consulted who recommended continuing the same. [...] no water. Elevated troponin likely type 2 OK -Okay to be transferred out of ICU. -Continue on steroids, bronchodilator, oseltamivir and antibiotics -ICU consult-appreciate recommendation -As per her daughter, pt does not drink alcohol or use drugs, She is a very active smoker -HSQ for DVT prophylaxis -Pantoprazole IV 40 mg daily for GI prophylaxis -Full code -consulted cardio Documented By: Daniel Garza MD 12/12/24 1443 Signed By: <Electronically signed by Daniel Garza MD> 12/12/241444 [facility] Work Phone: 1([phone]) 202-676301-29-2025 [place] [address] Hospitalist Progress Note Signed Patient: Julian Montaño MR#: [id number] : 1955 Acct:[id number] Age/Sex: 69 / F Adm Date: 5 Loc: Room: [address] [place] [address] Type: ADM IN Attending Dr: Daniel Garza MD Copies to: ~ Date of Service: 12/12/2024 Subjective Subjective Narrative: This is a 69 y.o female with past medical history of COPD, dyslipidemia, hypertension, type 2 diabetes as well as GERD and depression. Patient came to [facility] ER after she was intubated by the [...] vomiting and no other concerns as per [facility] documentation. Labs at [facility] showed CBC with leukocytosis and left shift, [...] no signs ofUTI. Her ABG wasdone at [facility] ER showed pH of 7.16 as well as PaCO2 of 71.5. She was intubated by EMS, was given 100 mg of succinylcholine 60 mg of ketamine and then 50 mg of fentanyl and 5 mg of Versed as well as 6.4 mg of Elconin. Also they reached out to cardiology at [facility] recommending again heparinization. EKG showed sinus tachycardia [...] started on bronchodilator steroid antibiotics and oseltamivir. Custom Shop Worker was consulted who recommended continuing the same. [...] no water. Elevated troponin likely type 2 OK -Okay to be transferred out of ICU. -Continue on steroids, bronchodilator, oseltamivir and antibiotics -ICU consult-appreciate recommendation -As per her daughter, pt does not drink alcohol or use drugs, She is a very active smoker -HSQ for DVT prophylaxis -Pantoprazole IV 40 mg daily for GI prophylaxis -Full code -consulted cardio Documented By: Daniel Garza MD 12/12/241442 Signed By: 12/12/24 1445 [facility]01-29-2025 Progress note Author Cecilia Ruiz [facility] Note Date/Time December 12, 2024 1 1:35am [facility] [address] [place] [address] Pulmonology Progress Note Signed Patient: Julian Montaño MR#: [id number] : 1955 Acct:[id number] Age/Sex: 69 / F Adm Date: 5 Loc: Room: [address] [place] [address] Type: ADM IN Attending Dr: Daniel Garza [...] By: Cecilia Ruiz MD 12/12/241132 Signed By: <Electronically signed by Cecilia Ruiz MD> 12/12/241134 [facility] Work Phone: 1(316) 325-671101-29-2025 [place] [id number] Pulmonology Progress Note Signed Patient: Julian Montaño MR#: [id number] : 1955 Acct:[id number] Age/Sex: 69 / F Adm Date: 5 Loc: Room: [address] [place] [address] Type: ADM IN Attending Dr: Daniel Garza [...] Cecilia Ruiz MD 12/12/241132 Signed By: 12/12/24 1135 [facility]01-28-2025 Progress note Author Cecilia Ruiz [facility] Note Date/Time December 11, 2024 2 :49pm [facility] [address] [place] [address] Pulmonology Progress Note Signed Patient: Julian Montaño MR#: [id number] : 1955 Acct:[id number] Age/Sex: 69 / F Adm Date: 5 Loc: Room: [address] [place] [address] Type: ADM IN Attending Dr: Daniel Garza [...] Cecilia Ruiz MD 12/11/24 1446 Signed By: <Electronically signed by Cecilia Ruiz MD> 12/11/24 1449 [facility] Work Phone: 1([phone]) 423-900801-28-2025 Progress note Author Daniel Garza [facility] Note Date/Time December 11, 2024 2 :43pm [facility] [address] [place] [address] Hospitalist Progress Note Signed Patient: Julian Montaño MR#: [id number] : 1955 Acct:[id number] Age/Sex: 69 / F Adm Date: 5 Loc: Room: [address] [place] [address] Type: ADM IN Attending Dr: Daniel Garza MD Copies to: ~ Date of Service: 12/11/2024 Subjective Subjective Narrative: This is a 69 y.o female with past medical history of COPD, dyslipidemia, hypertension, type 2 diabetes as well as GERD and depression. Patient came to [facility] ER after she was intubated by the [...] vomiting and no other concerns as per [facility] documentation. Labs at [facility] showed CBC with leukocytosis and left shift, [...] signs ofUTI. Her ABG was done at [facility] ER showed pH of 7.16 as well as PaCO2 of 71.5. She was intubated by EMS, was given 100 mg of succinylcholine 60 mg of ketamine and then 50 mg of fentanyl and 5 mg of Versed as well as 6.4 mg of Elconin. Also they reached out to cardiology at [facility] recommending again heparinization. EKG showed sinus tachycardia [...] started on bronchodilator steroid antibiotics and oseltamivir. Custom Shop Worker was consulted who recommended continuing the same. [...] no water. Elevated troponin likely type 2 OK -Continue to admit in ICU -Continue on [...] signed by Daniel Garza MD> 12/11/24 1443 [facility] Work Phone: 1(658) 694-268201-28-2025 [place] [address] Pulmonology Progress Note Signed Patient: Julian Montaño MR#: [id number] : 1955 Acct:[id number] Age/Sex: 69 / F Adm Date: 5 Loc: Room: [address] [place] [address] Type: ADM IN Attending Dr: Daniel Garza [...] By: Cecilia Ruiz MD 12/11/241445 Signed By: 12/11/24 1449 [facility]01-28-2025 [place] [address] Hospitalist Progress Note Signed Patient: Julian Montaño MR#: [id number] : 1955 Acct:[id number] Age/Sex: 69 / F Adm Date: 5 Loc: Room: [address] [place] [address] Type: ADM IN Attending Dr: Daniel Garza MD Copies to: ~ Date of Service: 12/11/2024 Subjective Subjective Narrative: This is a 69 y.o female with past medical history of COPD, dyslipidemia, hypertension, type 2 diabetes as well as GERD and depression. Patient came to [facility] ER after she was intubated by the [...] vomiting and no other concerns as per [facility] documentation. Labs at [facility] showed CBC with leukocytosis and left shift, [...] no signs ofUTI. Her ABG wasdone at [facility] ER showed pH of 7.16 as well as PaCO2 of 71.5. She was intubated by EMS, was given 100 mg of succinylcholine 60 mg of ketamine and then 50 mg of fentanyl and 5 mg of Versed as well as 6.4 mg of Elconin. Also they reached out to cardiology at [facility] recommending again heparinization. EKG showed sinus tachycardia [...] started on bronchodilator steroid antibiotics and oseltamivir. Custom Shop Worker was consulted who recommended continuing the same. [...] no water. Elevated troponin likely type 2 OK -Continue to admit in ICU -Continue on [...] -consulted cardio Documented By: Daniel Garza MD 12/11/241430 Signed By: 12/11/24 1443 [facility]01-28-2025 Consult note Author Krissy Cortez [facility] Note Date/Time December 10, 2024 1 0:30pm [facility] [address] [place] [address] Cardiology Consult Note Signed Patient: Julian Montaño MR#: [id number] : 1955 Acct:[id number] Age/Sex: 69 / F Adm Date: 5 Loc: Room: [address] [place] [address] Type: ADM IN Attending Dr: Daniel Garza MD Copies to: MD Daniel Cruz, GREG-C Suman Butler DO,RES Krissy Cortez MD~ Cardiology HPI History of Present Illness Consult Date: 12/10/24 Reason for Consult: Elevated troponin HPI: History is limited as the patient is currently intubated. History was obtained through review of prior documentation and discussion with hospital staff. No family is present at bedside to help corroborate history. Ms. Montaño is a 69 yearold female with past medical history of COPD, dyslipidemia, hypertension, type 2diabetes, GERD and depression who was transferred to our facility from [facility] last night. Per prior documentation, the patient arrived to [facility] ER after being intubated by EMS. She was reportedly found unresponsive by her boyfriend (unknown downtime) and was not responding. Additionally, prior documentation reveals that family was noting the patient complaining of shortness of breath for 2 days prior to arrival in the emergency department. [facility] labs revealed a leukocytosis, hemoglobin of 10.6, [...] H Lymph # (Auto) N/A 0.2 L [place] # (Auto) N/A 0.5 Eos # (Auto) [...] recheck about 9 hours later -EKG from [facility] reviewed and shows sinus tachycardia with right bundle branch block without evidence of ischemic changes -I believe the elevated troponins indicative of a type II OK and have low suspicion for type I OK, however will obtain echocardiogram for further evaluation [...] agree with the resident's note. Type II OK in the setting of acute hypoxic respiratory failure. ECHO shows normal LVEF 65-70% with normal wall motion. Can consider stress MPI as outpatient once recovered from acute resp issues. Cardiology will see again as needed. = Documented By: Krissy Cortez MD 12/10/24 1020 Signed By: <Electronically signed by Krissy Cortez MD> 12/10/242229 <Electronically signed by DO DEVEN Butler> 12/10/24 1553 [facility] Work Phone: 1([phone]) 484-466401-27-2025 [place] [address] Cardiology Consult Note Signed Patient: Julian Montaño MR#: [id number] : 1955 Acct:[id number] Age/Sex: 69 / F Adm Date: 5 Loc: Room: [address] [place] [address] Type: ADM IN Attending Dr: Daniel Garza MD Copies to: MD Daniel Cruz, EDITOR SOUND-C Suman Butler DO,DEVEN Cortez MD~ Cardiology HPI History of Present Illness Consult Date: 12/10/24 Reason for Consult: Elevated troponin HPI: History is limited as the patient is currently intubated. History was obtained through review of prior documentation and discussion with hospital staff. No family is present at bedside to help corroborate history. Ms. Montaño is a 69 yearold female with past medical history of COPD, dyslipidemia, hypertension, type 2diabetes, GERD and depression who was transferred to our facility from [facility] lastnight. Per prior documentation, the patient arrived to [facility] ER after being intubated by EMS. She was reportedly found unresponsive by her boyfriend (unknown downtime) and was not responding. Additionally, prior documentation reveals that family was noting the patient complaining of shortness ofbreath for 2 days prior to arrival in the emergency department. [facility] labs revealed a leukocytosis, hemoglobin of 10.6, [...] Systems Unobtainable due to endotracheal tube [facility] Medical History (Updated 12/10/24 @ 15:52 by [...] 62.5 mcg-vilant 25 mcg inhalat.powder (Trelegy Ellipta) [id number]/27/25 [History] losartan 50 mg tablet mg 12/10/24 [...] H Lymph # (Auto) N/A 0.2 L [place] # (Auto) N/A 0.5 Eos # (Auto) [...] recheck about 9 hours later -EKG from [facility] reviewed and shows sinus tachycardia with right bundle branch block without evidence of ischemic changes -I believe the elevated troponins indicative of a type II OK and have low suspicion for type I OK, however will obtain echocardiogram for further evaluation [...] agree with the resident's note. Type II OK in the setting of acute hypoxic respiratory failure. ECHO shows normal LVEF 65-70% with normal wall motion. Can consider stress MPI as outpatient once recovered from acute resp issues. Cardiology will see again as needed. = Documented By: Krissy Cortez MD 12/10/24 1020 Signed By: 12/10/24 2230 12/10/24 1554 [facility]01-27-2025 Progress note Author Daniel Garza [facility] Note Date/Time December 10, 2024 8 :26pm [facility] [address] [place] [address] Hospitalist Progress Note Signed Patient: Julian Montaño MR#: [id number] : 1955 Acct:[id number] Age/Sex: 69 / F Adm Date: 5 Loc: Room: [address] [place] [address] Type: ADM IN Attending Dr: Daniel Garza MD Copies to: ~ Date of Service: 12/10/2024 Subjective Subjective Narrative: This is a 69 y.o female that appears from the medication reconciliation [facility], patient appears to have past medical history of COPD, dyslipidemia, hypertension, type 2 diabetes as well as GERD and depression. Patient came to [facility] ER after she was intubated by the [...] vomiting and no other concerns as per [facility] documentation. Labs at [facility] showed CBC with leukocytosis and left shift, [...] signs ofUTI. Her ABG was done at [facility] ER showed pH of 7.16 as well as PaCO2 of 71.5. She was intubated by EMS, was given 100 mg of succinylcholine 60 mg of ketamine and then 50 mg of fentanyl and 5 mg of Versed as well as 6.4 mg of Elconin. Also they reached out to cardiology at [facility] recommending again heparinization. EKG showed sinus tachycardia [...] no water. Elevated troponin likely type 2 OK -Continue to admit in ICU -Continue on [...] elevated troponin in setting of type II OK. Plan to obtain echo Documented By: Daniel Garza MD 12/10/242020 Signed By: <Electronically signed by Daniel Garza MD> 12/10/242025 [facility] Work Phone: 1(854) 224-375601-27-2025 [place] [address] Hospitalist Progress Note Signed Patient: Julian Montaño MR#: [id number] : 1955 Acct:[id number] Age/Sex: 69 / F Adm Date: 5 Loc: Room: [address] [place] [address] Type: ADM IN Attending Dr: Daniel Garza MD Copies to: ~ Date of Service: 12/10/2024 Subjective Subjective Narrative: This is a 69 y.o female that appears from the medication reconciliation [facility], patient appears to have past medical history of COPD, dyslipidemia, hypertension, type 2 diabetes as well as GERD anddepression. Patient came to [facility] ER after she was intubated by the [...] vomiting and no other concerns as per [facility] documentation. Labs at [facility] showed CBC with leukocytosis and left shift, [...] no signs ofUTI. Her ABG wasdone at [facility] ER showed pH of 7.16 as well as PaCO2 of 71.5. She was intubated by EMS, was given 100 mg of succinylcholine 60 mg of ketamine and then 50 mg of fentanyl and 5 mg of Versed as well as 6.4 mg of Elconin. Also they reached out to cardiology at [facility] recommending again heparinization. EKG showed sinus tachycardia [...] no water. Elevated troponin likely type 2 OK -Continue to admit in ICU -Continue on [...] elevated troponin in setting of type II OK. Plan to obtain echo Documented By: Daniel Garza MD 12/10/242020 Signed By: 12/10/242025 [facility]01-27-2025 Consult note Author Cecilia Ruiz [facility] Note Date/Time December 10, 2024 4 :[address] [place] [address] [place] [address] Pulmonology Consult Note Signed Patient: Julian Montaño MR#: [id number] : 1955 Acct:[id number] Age/Sex: 69 / F Adm Date: 5 Loc: Room: [address] [place] [address] Type: ADM IN Attending Dr: Daniel Garza MD Copies to: MD Cecilia Cruz MD Brittany N Fitzpatrick, EDITOR SOUND-C~ HPI Date/Time of Consultation: Date of Service: 12/10/2024 Time of Service: 16:25 Consulting Provider: Cecilia Ruiz Requesting Provider: Daniel Garza Reason for Consult: Respiratory failure History of Present Illness History of present illness: Ms. Montaño is a 69 year old female with a past medical history of COPD, dyslipidemia, hypertension, type 2 diabetes as well as GERD and depression, presented to [facility] after she was found unresponsive by [...] nondistended. Extremities: No edema. Skin: No lesions DIALYSIS SOCIAL WORKER: Arouses to stimuli and follows simple commands. [...] 32 minutes. Documented By: Cecilia Ruiz MD 12/10/24 1622 Signed By: <Electronically signed by Cecilia Ruiz MD> 12/10/24 7291 [facility] Work Phone: 1(305) 167-997101-27-2025 [place] [address] Pulmonology Consult Note Signed Patient: Julian Montaño MR#: [id number] : 1955 Acct:[id number] Age/Sex: 69 / F Adm Date: 5 Loc: Room: [address] [place] [address] Type: ADM IN Attending Dr: Daniel Garza MD Copies to: MD Cecilia Cruz MD Brittany N Fitzpatrick, EDITOR SOUND-C~ HPI Date/Time of Consultation: Date of Service: 12/10/2024 Time of Service: 16:25 Consulting Provider: Cecilia Ruiz Requesting Provider: Daniel Garza Reason for Consult: Respiratory failure History of Present Illness History of present illness: Ms. Montaño is a 69 year old female with a past medical history of COPD, dyslipidemia, hypertension, type 2 diabetes as well as GERD and depression, presented to [facility] after she was found unresponsive by [...] Systems Unobtainable due to endotracheal tube [facility] Medical History (Updated 12/10/24 @ 15:52 by [...] nondistended. Extremities: No edema. Skin: No lesions DIALYSIS SOCIAL WORKER: Arouses to stimuli and follows simple commands. [...] Ruiz MD 12/10/241624 Signed By: 12/10/24 1632 [facility]01-26-2025 Evaluation note* Diagnosis Onset Date Resolution Status Admit Date Acute hypoxic respiratory failure acute December 09 9:05pm Aspiration pneumonia acute 2024 9:05pm COPD exacerbation acute December 09, [...] 2024 9:05pm Tobacco abuse acute November 9:05pm [facility] Work Phone: 1(937) 500-573101-26-2025 Evaluation note* Diagnosis Onset Date Resolution Status Admit Date Acute hypoxic respiratory failure acute December 09 9:05pm COPD exacerbation acute December 09, 2024 9:05pm Depression acute December 09, 2024 9:05pm Diabetes type 2 acute November [id number] 9:05pm Dyslipidemia acute November 9:05pm Elevated troponin acute December 09, 2024 9:05pm HTN (hypertension) acute 2024 9:05pm Impaired mobility and activities of daily living acute ry 2024 9:05pm Influenza A acute December 09, 2024 9:05pm Tobacco abuse acute November 9:05pm Aspiration pneumonia resolved [id number] 9:05pm Hypotension resolved December 09, 2024 9:05pm [facility] Work Phone: 1(369) 613-453511-07-2024 History of Present illness Narrative* Daniel Cardoso NP - 09/20/2024 10:53 AM ESTAssociated Problem(s): Type 2 diabetes mellitus without complication, without long-term current useof insulin (CMS/HCC) Currently taking Metformin 500mg Most recent labs: [...] Asthma with COPD (chronic obstructive pulmonary disease) ([facility]) Currently taking Trelegy Daily and Albuterol PRN No exacerbations recently Reports using rescue inhaler 3 times per month. Continue current regimen * Daniel Cardoso NP - 09/20/2024 10:00 AM EST Images from the original note were not included. Subjective Patient ID: Julian Montaño is a 69 y.o. female who presents [...] MODERATE RISK >11.0 HIGH RISK Resulting Agency [facility] DMII: Most recent labs: hemoglobin A1C 6.0% [...] List Items Addressed This Visit Other hyperlipidemia ([facility]) Currently taking Atorvastatin 40mg Denies any myalgias. Continue current regimen. Type 2 diabetes mellitus without complication, without long-term current use of insulin ([facility]) Currently taking Metformin 500mg Most recent labs: [...] Asthma with COPD (chronic obstructive pulmonary disease) ([facility]) Currently taking Trelegy Daily and Albuterol PRN No exacerbations recently Reports using rescue inhaler 3 times per month. Continue current regimen Primary hypertension (CMS/HCC) - Primary Currently taking Losartan-hydrochlorothiazide 50/12.5mg Checks [...] (Augmentin) 875-125 MG tablet documented in this [facility]11-07-2024 Instructions* Patient Instructions* Daniel Cardoso NP - [...] if you need anything! documented in this [facility]10-29-2024 Telephone encounter Note* Telephone Encounter - Sabina Black MA - 09/11/2024 3:30 PM EDT Pt requesting a refill on her mobic, ANETTE:06/21/2024 NOV:09/20/2024 [id number] Miscellaneous Notes* Telephone Encounter - Sabina Black MA - 09/11/2024 3:30 PM EDT Pt requesting a refill on her mobic, ANETTE:06/21/2024 NOV:09/20/2024 [facility] Plan note No data available for this section [facility] Diagnosis 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 loss- Primary Iron deficiency anemia secondary to blood loss (chronic) Current smoker Other hyperlipidemia (CMS/HCC) Moderate persistent asthma without complication (CMS/HCC) Type 2 diabetes mellitus without complication, without long-term current use of insulin (CMS/HCC) Screening mammogram, encounter for Recurrent major depressive [...] pulmonary disease) (CMS/HCC) documented in this encounter [facility] HealthcareEvaluation note* Diagnosis 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 loss- Primary Iron deficiency anemia secondary to blood loss (chronic) Current smoker Other hyperlipidemia (CMS/HCC) Moderate persistent asthma without complication (CMS/HCC) Type 2 diabetes mellitus without complication, without long-term current use of insulin (CMS/HCC) Screening mammogram, encounter for Recurrent major depressive [...] without complications (CMS/HCC) documented in this encounter [facility] HealthcareEvaluation note* Diagnosis 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 loss- Primary Iron deficiency anemia secondary to blood loss (chronic) Current smoker Other hyperlipidemia (CMS/HCC) Moderate persistent asthma without complication ([facility]/HCC) Type 2 diabetes mellitus without complication, without long-term current use of insulin ([facility]/HCC) Screening mammogram, encounter for Recurrent major depressive disorder, in full remission ([facility]) Asthma with COPD (chronic obstructive pulmonary disease) ([facility]/HCC)- Primary 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 [...] complication, without long-term current use of insulin ([facility]/HCC) Vitamin D deficiency Dermoid cyst of right ear Tobacco dependency Tobacco use disorder Hyperlipidemia, unspecified ([facility]/HCC) documented in this encounter [facility] HealthcareEvaluation note* Diagnosis 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 loss- Primary Iron deficiency anemia secondary to blood loss (chronic) Current smoker Other hyperlipidemia (CMS/HCC) Moderate persistent asthma without complication ([facility]/HCC) Type 2 diabetes mellitus without complication, without long-term current use of insulin ([facility]) Screening mammogram, encounter for Recurrent major depressive disorder, in full remission ([facility]) Asthma with COPD (chronic obstructive pulmonary disease) ([facility])- Primary 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) Type 2 diabetes mellitus without complication, without long-term current use of insulin ([facility]) Primary hypertension ([facility]) Unspecified essential hypertension Asthma with COPD (chronic obstructive pulmonary disease) ([facility])- Primary Primary hypertension ([facility]) Unspecified essential hypertension Type 2 diabetes mellitus without complication, without long-term current use of insulin ([facility]) Primary hypertension ([facility])- Primary Unspecified essential hypertension Asthma with COPD (chronic obstructive pulmonary disease) ([facility]) 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) Other hyperlipidemia ([facility]) Type 2 diabetes mellitus without complication, without long-term current use of insulin ([facility]) Vitamin D deficiency Dermoid cyst of right ear Tobacco dependency Tobacco use disorder Other bursitis of elbow, left elbow documented in this encounter [facility] HealthcareEvaluation note* Diagnosis 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 loss- Primary Iron deficiency anemia secondary to blood loss (chronic) Current smoker Other hyperlipidemia (/HCC) Moderate persistent asthma without complication ([facility]) Type 2 diabetes mellitus without complication, without long-term current use of insulin ([facility]) Screening mammogram, encounter for Recurrent major depressive disorder, in full remission ([facility]) Asthma with COPD (chronic obstructive pulmonary disease) ([facility])- Primary 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) Type 2 diabetes mellitus without complication, without long-term current use of insulin ([facility]) Primary hypertension ([facility]) Unspecified essential hypertension Asthma with COPD (chronic obstructive pulmonary disease) ([facility])- Primary Primary hypertension ([facility]) Unspecified essential hypertension Type 2 diabetes mellitus without complication, without long-term current use of insulin ([facility]) Primary hypertension ([facility])- Primary Unspecified essential hypertension Asthma with COPD (chronic obstructive pulmonary disease) ([facility]) 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) Other hyperlipidemia ([facility]/HCC) Type 2 diabetes mellitus without complication, without long-term current use of insulin ([facility]) Vitamin D deficiency Dermoid cyst of right ear Tobacco dependency Tobacco use disorder Primary hypertension ([facility]/HCC)- Primary Unspecified essential hypertension Type 2 diabetes mellitus without complication, without long-term current use of insulin ([facility]) Other hyperlipidemia ([facility]/HCC) Asthma with COPD (chronic obstructive pulmonary disease) ([facility]) Non-recurrent acute serous otitis media of left ear documented in this encounter [facility] HealthcareEvaluation note* Diagnosis Other bursitis of elbow, left elbow documented in this encounter [facility] HealthcareEvaluation note* Diagnosis 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 loss- Primary Iron deficiency anemia secondary to blood loss (chronic) Current smoker Other hyperlipidemia ([facility]) Moderate persistent asthma without complication ([facility]) Type 2 diabetes mellitus without complication, without long-term current use of insulin ([facility]) Screening mammogram, encounter for Recurrent major depressive disorder, in full remission ([facility]) Asthma with COPD (chronic obstructive pulmonary disease) ([facility])- Primary 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) Type 2 diabetes mellitus without complication, without long-term current use of insulin ([facility]) Primary hypertension ([facility]) Unspecified essential hypertension Asthma with COPD (chronic obstructive pulmonary disease) ([facility])- Primary Primary hypertension ([facility]) Unspecified essential hypertension Type 2 diabetes mellitus without complication, without long-term current use of insulin ([facility]) Primary hypertension ([facility])- Primary Unspecified essential hypertension Asthma with COPD (chronic obstructive pulmonary disease) ([facility]) 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) Other hyperlipidemia ([facility]) Type 2 diabetes mellitus without complication, without long-term current use of insulin ([facility]) Vitamin D deficiency Dermoid cyst of right ear Tobacco dependency Tobacco use disorder Primary hypertension ([facility])- Primary Unspecified essential hypertension Type 2 diabetes mellitus without complication, without long-term current use of insulin ([facility]) Other hyperlipidemia ([facility]/HCC) Asthma with COPD (chronic obstructive pulmonary disease) ([facility]) Non-recurrent acute serous otitis media of left ear Gastro-esophageal reflux disease without esophagitis documented in this encounter [facility] HealthcareEvaluation note* Diagnosis 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 loss- Primary Iron deficiency anemia secondary to blood loss (chronic) Current smoker Other hyperlipidemia ([facility]/HCC) Moderate persistent asthma without complication ([facility]) Type 2 diabetes mellitus without complication, without long-term current use of insulin ([facility]) Screening mammogram, encounter for Recurrent major depressive disorder, in full remission ([facility]) Asthma with COPD (chronic obstructive pulmonary disease) ([facility])- Primary 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) Type 2 diabetes mellitus without complication, without long-term current use of insulin ([facility]) Primary hypertension ([facility]) Unspecified essential hypertension Asthma with COPD (chronic obstructive pulmonary disease) ([facility])- Primary Primary hypertension ([facility]) Unspecified essential hypertension Type 2 diabetes mellitus without complication, without long-term current use of insulin ([facility]) Primary hypertension ([facility])- Primary Unspecified essential hypertension Asthma with COPD (chronic obstructive pulmonary disease) ([facility]) 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) Other hyperlipidemia ([facility]) Type 2 diabetes mellitus without complication, without long-term current use of insulin ([facility]) Vitamin D deficiency Dermoid cyst of right ear Tobacco dependency Tobacco use disorder Primary hypertension ([facility])- Primary Unspecified essential hypertension Type 2 diabetes mellitus without complication, without long-term current use of insulin ([facility]) Other hyperlipidemia ([facility]) Asthma with COPD (chronic obstructive pulmonary disease) ([facility]) Non-recurrent acute serous otitis media of left ear Depression, unspecified ([facility]) documented in this encounter [facility]* [...] Diagnosis Type 2 diabetes mellitus without complications ([facility]) Hyperlipidemia, unspecified ([facility]/HCC) documented in this encounter [facility]* Diagnosis Hyperlipidemia, unspecified ([facility]/HCC) Other bursitis of elbow, left elbow Depression, unspecified ([facility]) Type 2 diabetes mellitus without complications ([facility]) documented in this encounter [facility] HealthcareEvaluation note* Diagnosis 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 loss- Primary Iron deficiency anemia secondary to blood loss (chronic) Current smoker Other hyperlipidemia (CMS/HCC) Moderate persistent asthma without complication ([facility]) Type 2 diabetes mellitus without complication, without long-term current use of insulin ([facility]) Screening mammogram, encounter for Recurrent major depressive disorder, in full remission ([facility]) Asthma with COPD (chronic obstructive pulmonary disease) ([facility])- Primary 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) Type 2 diabetes mellitus without complication, without long-term current use of insulin ([facility]) Primary hypertension ([facility]) Unspecified essential hypertension Asthma with COPD (chronic obstructive pulmonary disease) ([facility])- Primary Primary hypertension ([facility]) Unspecified essential hypertension Type 2 diabetes mellitus without complication, without long-term current use of insulin ([facility]) Primary hypertension ([facility])- Primary Unspecified essential hypertension Asthma with COPD (chronic obstructive pulmonary disease) ([facility]) 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) Other hyperlipidemia ([facility]) Type 2 diabetes mellitus without complication, without long-term current use of insulin ([facility]) Vitamin D deficiency Dermoid cyst of right ear Tobacco dependency Tobacco use disorder Primary hypertension ([facility])- Primary Unspecified essential hypertension Type 2 diabetes mellitus without complication, without long-term current use of insulin ([facility]) Other hyperlipidemia ([facility]) Asthma with COPD (chronic obstructive pulmonary disease) ([facility]) Non-recurrent acute serous otitis media of left ear 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) documented in this encounter [facility] HealthcareEvaluation note* Diagnosis 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 loss- Primary Iron deficiency anemia secondary to blood loss (chronic) Current smoker Other hyperlipidemia ([facility]/HCC) Moderate persistent asthma without complication ([facility]) Type 2 diabetes mellitus without complication, without long-term current use of insulin ([facility]) Screening mammogram, encounter for Recurrent major depressive disorder, in full remission ([facility]) Asthma with COPD (chronic obstructive pulmonary disease) ([facility]/HCC)- Primary 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) Type 2 diabetes mellitus without complication, without long-term current use of insulin ([facility]) Primary hypertension ([facility]) Unspecified essential hypertension Asthma with COPD (chronic obstructive pulmonary disease) ([facility])- Primary Primary hypertension ([facility]) Unspecified essential hypertension Type 2 diabetes mellitus without complication, without long-term current use of insulin ([facility]/HCC) Primary hypertension ([facility])- Primary Unspecified essential hypertension Asthma with COPD (chronic obstructive pulmonary disease) ([facility]) 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) Other hyperlipidemia ([facility]) Type 2 diabetes mellitus without complication, without long-term current use of insulin ([facility]) Vitamin D deficiency Dermoid cyst of right ear Tobacco dependency Tobacco use disorder Primary hypertension ([facility])- Primary Unspecified essential hypertension Type 2 diabetes mellitus without complication, without long-term current use of insulin ([facility]) Other hyperlipidemia ([facility]) Asthma with COPD (chronic obstructive pulmonary disease) ([facility]) Non-recurrent acute serous otitis media of left ear Asthma with COPD (chronic obstructive pulmonary disease) ([facility]) documented in this encounter [facility] HealthcareEvaluation note* Diagnosis 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 loss- Primary Iron deficiency anemia secondary to blood loss (chronic) Current smoker Other hyperlipidemia ([facility]/HCC) Moderate persistent asthma without complication ([facility]) Type 2 diabetes mellitus without complication, without long-term current use of insulin ([facility]) Screening mammogram, encounter for Recurrent major depressive disorder, in full remission ([facility]) Asthma with COPD (chronic obstructive pulmonary disease) ([facility])- Primary 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) Type 2 diabetes mellitus without complication, without long-term current use of insulin ([facility]) Primary hypertension ([facility]) Unspecified essential hypertension Asthma with COPD (chronic obstructive pulmonary disease) ([facility])- Primary Primary hypertension ([facility]) Unspecified essential hypertension Type 2 diabetes mellitus without complication, without long-term current use of insulin ([facility]) Primary hypertension ([facility])- Primary Unspecified essential hypertension Asthma with COPD (chronic obstructive pulmonary disease) ([facility]) 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) Other hyperlipidemia ([facility]) Type 2 diabetes mellitus without complication, without long-term current use of insulin ([place]) Vitamin D deficiency Dermoid cyst of right ear Tobacco dependency Tobacco use disorder Primary hypertension ([place])- Primary Unspecified essential hypertension Type 2 diabetes mellitus without complication, without long-term current use of insulin ([place]) Other hyperlipidemia ([place]) Asthma with COPD (chronic obstructive pulmonary disease) ([place]) Non-recurrent acute serous otitis media of left ear 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) documented in this encounter [facility] HealthcareEvaluation note* Diagnosis Acute hypoxic respiratory failure ([facility])- Primary Chronic obstructive pulmonary disease, unspecified COPD type [place] Influenza A Influenza with other respiratory manifestations Aspiration pneumonia, unspecified aspiration pneumonia type, unspecified laterality, unspecified part of lung [place] Depression, unspecified depression type Cigarette smoker Tobacco use disorder Type 2 diabetes mellitus without complication, without long-term current use of insulin [place] Anxiety Anxiety state, unspecified [facility] Acute hypoxic respiratory failure ([facility])- Primary Chronic obstructive pulmonary disease, unspecified COPD type [place] Influenza A Influenza with other respiratory manifestations Other abnormalities of gait and mobility [facility] Diagnosis Acute hypoxic respiratory failure ([facility])- Primary Aspiration pneumonia, unspecified aspiration pneumonia type, unspecified laterality, unspecified part of lung [place] Chronic obstructive pulmonary disease, unspecified COPD type [place] Influenza A Influenza with other respiratory manifestations Type 2 diabetes mellitus without complication, without long-term current use of insulin [place] Other abnormalities of gait and mobility Anxiety Anxiety state, unspecified [facility] Diagnosis Chronic obstructive pulmonary disease, unspecified COPD type ([facility])- Primary Influenza A Influenza with other respiratory manifestations Other abnormalities of gait and mobility Anxiety Anxiety state, unspecified Cigarette smoker Tobacco use disorder [facility] Diagnosis 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 loss- Primary Iron deficiency anemia secondary to blood loss (chronic) Current smoker Other hyperlipidemia ([facility]) Moderate persistent asthma without complication ([facility]) Type 2 diabetes mellitus without complication, without long-term current use of insulin ([facility]) Screening mammogram, encounter for Recurrent major depressive disorder, in full remission ([facility]) Asthma with COPD (chronic obstructive pulmonary disease) ([facility])- Primary 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) Type 2 diabetes mellitus without complication, without long-term current use of insulin ([facility]) Primary hypertension ([facility]) Unspecified essential hypertension Asthma with COPD (chronic obstructive pulmonary disease) ([facility])- Primary Primary hypertension ([facility]) Unspecified essential hypertension Type 2 diabetes mellitus without complication, without long-term current use of insulin ([facility]) Primary hypertension ([facility])- Primary Unspecified essential hypertension Asthma with COPD (chronic obstructive pulmonary disease) ([facility]) 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) Other hyperlipidemia ([facility]) Type 2 diabetes mellitus without complication, without long-term current use of insulin ([facility]) Vitamin D deficiency Dermoid cyst of right ear Tobacco dependency Tobacco use disorder Primary hypertension ([facility])- Primary Unspecified essential hypertension Type 2 diabetes mellitus without complication, without long-term current use of insulin ([facility]) Other hyperlipidemia ([facility]) Asthma with COPD (chronic obstructive pulmonary disease) ([facility]) Non-recurrent acute serous otitis media of left ear Influenza A- Primary Influenza with other respiratory manifestations Chronic obstructive pulmonary disease, unspecified COPD type ([facility]) Acute hypoxic respiratory failure ([facility]) Type 2 diabetes mellitus without complication, without long-term current use of insulin ([facility]) Primary hypertension ([facility]) Unspecified essential hypertension Benign neoplasm of cranial nerves ([facility]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 ([facility]) documented in this encounter [facility] HealthcareEvaluation note* Diagnosis 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 loss- Primary Iron deficiency anemia secondary to blood loss (chronic) Current smoker Other hyperlipidemia ([facility]) Moderate persistent asthma without complication ([facility]) Type 2 diabetes mellitus without complication, without long-term current use of insulin ([facility]) Screening mammogram, encounter for Recurrent major depressive disorder, in full remission ([facility]) Asthma with COPD (chronic obstructive pulmonary disease) ([facility])- Primary 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) Type 2 diabetes mellitus without complication, without long-term current use of insulin ([facility]) Primary hypertension ([facility]) Unspecified essential hypertension Asthma with COPD (chronic obstructive pulmonary disease) ([facility])- Primary Primary hypertension ([facility]) Unspecified essential hypertension Type 2 diabetes mellitus without complication, without long-term current use of insulin ([facility]) Primary hypertension ([facility])- Primary Unspecified essential hypertension Asthma with COPD (chronic obstructive pulmonary disease) ([facility]) 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) Other hyperlipidemia ([facility]) Type 2 diabetes mellitus without complication, without long-term current use of insulin ([facility]) Vitamin D deficiency Dermoid cyst of right ear Tobacco dependency Tobacco use disorder Primary hypertension ([facility])- Primary Unspecified essential hypertension Type 2 diabetes mellitus without complication, without long-term current use of insulin ([facility]) Other hyperlipidemia ([facility]) Asthma with COPD (chronic obstructive pulmonary disease) ([facility]) Non-recurrent acute serous otitis media of left ear Influenza A- Primary Influenza with other respiratory manifestations Chronic obstructive pulmonary disease, unspecified COPD type ([facility]) Acute hypoxic respiratory failure ([facility]) Type 2 diabetes mellitus without complication, without long-term current use of insulin ([facility]) Primary hypertension ([facility]) Unspecified essential hypertension Benign neoplasm of cranial nerves ([facility]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 ([facility]) Scalp laceration, sequela- Primary Cigarette nicotine dependence without complication COPD exacerbation ([facility]) Obstructive chronic bronchitis with exacerbation documented in this encounter [facility] HealthcareEvaluation note* Diagnosis 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 loss- Primary Iron deficiency anemia secondary to blood loss (chronic) Current smoker Other hyperlipidemia ([facility]) Moderate persistent asthma without complication ([facility]) Type 2 diabetes mellitus without complication, without long-term current use of insulin ([facility]) Screening mammogram, encounter for Recurrent major depressive disorder, in full remission ([facility]) Asthma with COPD (chronic obstructive pulmonary disease) ([facility])- Primary 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) Type 2 diabetes mellitus without complication, without long-term current use of insulin (CMS/HCC) Primary hypertension (CMS/HCC) Unspecified essential hypertension Asthma with COPD (chronic obstructive pulmonary disease) ([facility]CC)- Primary Primary hypertension ([facility]) Unspecified essential hypertension Type 2 diabetes mellitus without complication, without long-term current use of insulin (CMS/HCC) Primary hypertension ([facility]/HCC)- Primary Unspecified essential hypertension Asthma with COPD (chronic obstructive pulmonary disease) ([facility]) 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) Other hyperlipidemia (CMS/HCC) Type 2 diabetes mellitus without complication, without long-term current use of insulin ([facility]) Vitamin D deficiency Dermoid cyst of right ear Tobacco dependency Tobacco use disorder Primary hypertension ([facility])- Primary Unspecified essential hypertension Type 2 diabetes mellitus without complication, without long-term current use of insulin ([facility]) Other hyperlipidemia ([facility]) Asthma with COPD (chronic obstructive pulmonary disease) ([facility]) Non-recurrent acute serous otitis media of left ear Influenza A- Primary Influenza with other respiratory manifestations Chronic obstructive pulmonary disease, unspecified COPD type (CMS/HCC) Acute hypoxic respiratory failure ([facility]) Type 2 diabetes mellitus without complication, without long-term current use of insulin ([facility]) Primary hypertension ([facility]) Unspecified essential hypertension Benign neoplasm of cranial nerves (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 ([facility]) Scalp laceration, sequela- Primary Cigarette nicotine dependence without complication COPD exacerbation ([facility]) Obstructive chronic bronchitis with exacerbation Type 2 diabetes mellitus without complication, without long-term current use of insulin ([facility])- Primary Chronic obstructive pulmonary disease, unspecified COPD type ([facility]/HCC) Primary hypertension ([facility]CC) Unspecified essential hypertension Vitamin D deficiency 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) Cigarette nicotine dependence without complication Recurrent major depressive disorder, in full remission ([facility]/HCC) Generalized anxiety disorder ([facility]CC) Generalized anxiety disorder Screening mammogram, encounter for Other hyperlipidemia (CMS/HCC) Acute hypoxic respiratory failure (CMS/HCC) documented in this encounter [facility] HealthcareEvaluation note* Diagnosis 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 loss- Primary Iron deficiency anemia secondary to blood loss (chronic) Current smoker Other hyperlipidemia Moderate persistent asthma without complication ([facility]) Type 2 diabetes mellitus without complication, without long-term current use of insulin Screening mammogram, encounter for Recurrent major depressive disorder, in full remission ([facility]CC) Asthma with COPD (chronic obstructive pulmonary disease) ([facility])- Primary 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) Type 2 diabetes mellitus without complication, without long-term current use of insulin Primary hypertension ([facility]) Unspecified essential hypertension Asthma with COPD (chronic obstructive pulmonary disease) ([facility])- Primary Primary hypertension ([facility]) Unspecified essential hypertension Type 2 diabetes mellitus without complication, without long-term current use of insulin Primary hypertension ([facility])- Primary Unspecified essential hypertension Asthma with COPD (chronic obstructive pulmonary disease) ([facility]) 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) Other hyperlipidemia Type 2 diabetes mellitus without complication, without long-term current use of insulin Vitamin D deficiency Dermoid cyst of right ear Tobacco dependency Tobacco use disorder Primary hypertension ([facility])- Primary Unspecified essential hypertension Type 2 diabetes mellitus without complication, without long-term current use of insulin Other hyperlipidemia Asthma with COPD (chronic obstructive pulmonary disease) ([facility]) Non-recurrent acute serous otitis media of left ear Influenza A- Primary Influenza with other respiratory manifestations Chronic obstructive pulmonary disease, unspecified COPD type ([facility]) Acute hypoxic respiratory failure ([facility]) Type 2 diabetes mellitus without complication, without long-term current use of insulin Primary hypertension ([facility]) Unspecified essential hypertension Benign neoplasm of cranial nerves ([facility]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 ([facility]) Scalp laceration, sequela- Primary Cigarette nicotine dependence without complication COPD exacerbation ([facility]) Obstructive chronic bronchitis with exacerbation Type 2 diabetes mellitus without complication, without long-term current use of insulin- Primary Chronic obstructive pulmonary disease, unspecified COPD type ([facility]CC) Primary hypertension ([facility]) Unspecified essential hypertension Vitamin D deficiency 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) Cigarette nicotine dependence without complication Recurrent major depressive disorder, in full remission ([facility]) Generalized anxiety disorder ([facility]) Generalized anxiety disorder Screening mammogram, encounter for Other hyperlipidemia Acute hypoxic respiratory failure ([facility]) Elevated TSH Other abnormal blood chemistry documented in this encounter [facility] No data available for this section [facility]ructionsNot on filedocumented in this encounter [facility] filedocumented in this [facility]ructionsNot on filedocumented in this encounter [facility] No data available for this section [facility] CenterReason for referral (narrative)* Consultation (Routine) - Pending Review Specialty Diagnoses / Procedures Referred By Marilia t Referred To Contact Gastroenterology Diagnoses 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 loss Procedures NC OFFICE/OUTPATIENT NEW HIGH MDM 60 MINUTES Daniel Cardoso NP [address] [place] [phone] Referral ID Status Reason Start Date Expiration Date Visits Requested Visits Authorized [id number] Pending Review Specialty Services Required 07/07/2024 01/03/2025 1 1 [facility] Healthcare Summary Purpose Family History Relationship [...] Visit Admit Date Acute hypoxic respiratory failure Januar y 2024 9:05pm Aspiration pneumonia December 09, 2024 [...] +, Exacerbation COPD December 13, 2024 12:54pm [facility] [place] 04, 2025 8:55am Reason for Visit Admit Date Acute hypoxic respiratory failure Januar y 2024 9:05pm COPD exacerbation December 09, 2024 [...] section and content) DATE CREATED AUTHOR 10/22/2018 [employer] DATE CREATED AUTHOR AUTHOR'S ORGANIZ ATION 01/09/2023 [facility] [place] [facility] DATE CREATED AUTHOR AUTHOR'S ORGANIZ ATION 12/17/2023 [facility] DATE CREATED AUTHOR AUTHOR'S ORGANIZ ATION 12/17/2024 [facility] DATE CREATED AUTHOR AUTHOR'S ORGANIZ ATION 01/20/2025 [facility] DATE CREATED AUTHOR AUTHOR'S ORGANIZ ATION 02/07/2025 [facility] Special[facility] EPIC Patient Care team informatio n (unrecognized section and content) Backing In Machine Tender Relationship Specialty Start Date End Date Shaikh Sánchez MD [address] [place] [address] PCP - Linda MORALES 11/14/23 Shaikh Sánchez MD [address] [place] [phone] PCP - General Internal Medicine 01/16/24 Arielle Wheeler NP [address] [place] [address] Nurse Practitioner Internal Medicine 01/16/24 Kirstin Carreon LPN Licensed Practical Nurse Family Medicine 07/27/24 [employer] Relationship Specialty Start Date End Date Shaikh Sánchez MD [address] [place] [phone] PCP - Linda MORALES 11/14/23 Ian Soares MD [address] [place] [phone] PCP - General Family Medicine 09/11/24 Arielle Wheeler NP [address] [place] [address] Nurse Practitioner Internal Medicine 01/16/24 Kirstin Carreon LPN Licensed Practical Nurse Family Medicine 07/27/24 Daniel Cardoso NP [address] [place] [phone] Nurse Practitioner Family Medicine 09/11/24 [employer] Machine Tender Relationship Specialty Start Date End Date Shaikh Sánchez MD [address] [place] [phone] PCP Shayy Mckeon MA 11/14/23 Ian Soares MD [address] [place] [address] PCP - General Family Medicine 09/11/24 Arielle Wheeler NP [address] [place] [address] Nurse Practitioner Internal Medicine 01/16/24 Kirstin Carreon LPN Licensed Practical Nurse Family Medicine 07/27/24 Daniel Cardoso NP [address] [place] [address] Nurse Practitioner Family Medicine 09/11/24 [employer] Machine Tender Relationship Specialty Start Date End Date Shaikh Sánchez MD [address] [place] [phone] PCP - [facility] 11/14/23 Ian Soares MD [address] [place] [address] PCP - General Family Medicine 09/11/24 Arielle Wheeler NP [address] [place] [address] Nurse Practitioner Internal Medicine 01/16/24 Kirstin Carreon LPN Licensed Practical Nurse Family Medicine 07/27/24 Daniel Cardoso NP [address] [place] [address] Nurse Practitioner Family Medicine 09/11/24 [employer]ing In Machine Tender Relationship Specialty Start Date End Date Shaikh Sánchez MD [address] [place] [address] PCP - Linda MORALES 11/14/23 Ian Soares MD [address] [place] [address] PCP - General Family Medicine 09/11/24 Arielle Wheeler [employer] [address] [place] [address] Nurse Practitioner Internal Medicine 01/16/24 Kirstin Carreon LPN Licensed Practical Nurse Family Medicine 07/27/24 Daniel Cardoso NP [address] [place] [address] Nurse Practitioner Family Medicine 09/11/24 [employer] Machine T[employer] Relationship Specialty Start Date End Date Shaikh Sánchez MD [address] [place] [address] PCP - Linda MORALES 11/14/23 Shaikh Sánchez MD [address] [place] [address] PCP - General Internal Medicine 01/16/24 Arielle Wheeler [employer] [address] [place] [address] Nurse Practitioner Internal Medicine 01/16/24 Gustavo Romero LPN Licensed Practical Nurse Family Medicine 07/04/24 Backing In Machine Tender Relationship Specialty Start Date End Date Shaikh Sánchez MD [address] [place] [address] PCP - Linda MT 11/14/23 Ian Soares MD [address] [place] [address] PCP - General Family Medicine 09/11/24 Arielle Wheeler NP [address] [place] [address] Nurse Practitioner Internal Medicine 01/16/24 Daniel Cardoso NP [address] [place] [phone] Nurse Practitioner Family Medicine 09/11/24 Arturo Chanel MA Family Medicine 09/24/24 Backing In Machine Tender Relationship Specialty Start Date End Date Shaikh Sánchez MD [address] [place] [address] PCP - Linda MORALES 11/14/23 Shaikh Sánchez MD [address] [place] [phone] PCP - General Internal Medicine 01/16/24 Arielle Wheeler EDITOR [employer] [address] [place] [address] Nurse Practitioner Internal Medicine 01/16/24 Gustavo Romero LPN Licensed Practical Nurse Family Medicine 07/04/24 Backing In Machine Tender Relationship Specialty Start Date End Date Shaikh Sánchez MD [address] [place] [phone] PCP - Linda MORALES 11/14/23 Shaikh Sánchez MD [address] [place] [address] PCP - General Internal Medicine 01/16/24 Arielle Wheeler EDITOR [employer] [address] [place] [address] Nurse Practitioner Internal Medicine 01/16/24 Gustavo Romero LPN Licensed Practical Nurse Family Medicine 07/04/24 Backing In Machine Tender Relationship Specialty Start Date End Date Shaikh Sánchez MD [address] [place] [address] PCP Shayy Mckeon MA 11/14/23 Shaikh Sánchez MD [address] [place] [phone] PCP - General Internal Medicine 01/16/24 Arielle Wheeler EDITOR [employer] [address] [place] [address] Nurse Practitioner Internal Medicine 01/16/24 Gustavo Romero LPN Licensed Practical Nurse Family Medicine 07/04/24 Backing In Machine Tender Relationship Specialty Start Date End Date Shaikh Sánchez MD [address] [place] [address] SHIVAM Mckeon MA 11/14/23 Shaikh Sánchez MD [address] [place] [address] PCP - General Internal Medicine 01/16/24 Arielle Wheeler, GREG [address] [facility] [address] [place] [address] Nurse Practitioner Internal Medicine 01/16/24 Kirstin Carreon LPN Licensed Practical Nurse Family Medicine 07/27/24 Backing In Machine Tender Relationship Specialty Start Date End Date Shaikh Sánchez MD [address] [place] [address] PCP - Linda MORALES 11/14/23 Ian Soares MD [address] [place] [address] PCP - General Family Medicine 09/11/24 Arielle Wheeler NP [address] [place] [address] Nurse Practitioner Internal Medicine 01/16/24 Daniel Cardoso NP [address] [place] [address] Nurse Practitioner Family Medicine 09/11/24 Arturo Chanel MA Family Medicine 09/24/24 Backing In Machine Tender Relationship Specialty Start Date End Date Shaikh Sánchez MD [address] [place] [address] PCP - Linda MORALES 11/14/23 Ian Soares MD [address] [place] [address] PCP - General Family Medicine 09/11/24 Arielle Wheeler NP [address] [place] [address] Nurse Practitioner Internal Medicine 01/16/24 Daniel Cardoso NP [address] [place] [address] Nurse Practitioner Family Medicine 09/11/24 Arturo Chanel MA Family Medicine 09/24/24 Backing In Machine Tender Relationship Specialty Start Date End Date Shaikh Sánchez MD [address] [place] [address] PCP - [facility] 11/14/23 Ian Soares MD [address] [place] [address] PCP - General Family Medicine 09/11/24 Arielle Wheeler NP [address] [place] [address] Nurse Practitioner Internal Medicine 01/16/24 Daniel Cardoso NP [address] [place] [address] Nurse Practitioner Family Medicine 09/11/24 Arturo Chanel [...] Active Start: anuary 2024 Cecilia Ruiz MD Other Provider Active Start: anuary 2024 Daniel Garza MD Other Provider [...] Provider Active Start: December 10, 2024 Daniel Garaz MD Other Provider Active Start: Jamey olivas 2024 Team Status: Active Member Role Status Dates Daniel Cardoso NP-C Primary Care Provider Active Start: November Soco Beasley MD Admit Provider Active Start: Heath anuary 2024 Daniel Garza MD Other Provider Active Start: Jamey olivas 2024 Cecilia Ruiz MD Other Provider Active Start: Heath anuary 2024 Suzette Ng MD Other Provider Active Start: Jamey olivas 2024 Ryan Arshad MD Other Provider Active Start: Heath anuary 2024 Ilana Mendoza APRN Other Provider Active St art: December 13, 2024 Hubert Mcguire Jr, DO Other Provider Active S tart: December 13, 2024 Dave Bazan MD Attending Va ovider, Other Provider Active Start: December 13, 2024 Backing In Machine Tender Relationship Specialty Start Date End Date Gianna Isabel MD PCP - General Family Medicine 02/07/17 Backing In Machine Tender Relationship Specialty Start Date End Date Gianna Isabel MD PCP - General Family Medicine 02/07/17 Backing In Machine Tender Relationship Specialty Start Date End Date Gianna Isabel MD PCP - General Family Medicine 02/07/17 Team Status: Inactive Member Role Status Dates Daniel Cardoso EDITOR SOUND-C Primary Care Provider Ac tive Start: December 09, 2024 End: December 14, 2024 Soco Beasley MD Admit Provider Active Start: 2024 End: December 14, 2024 Daniel Garza MD Attending Provider Active Start : December 09, 2024 End: December 14, 2024 Suzette Ng MD Other Provider Active Start: Jamey olivas 2024 End: December 14, 2024 Ryan Arshad MD Other Provider Active Start: Heath anuary 2024 End: December 14, 2024 Ilana [...] J anuary 2024 End: December 14, 2024 Team Status: Active Member Role Status Dates Daniel Cardoso , EDITOR SOUND-C Primary Care Provider Ac tive Start: December 10, 2024 Taco Flores DO Attending Provider Active Sta rt: December 10, 2024 Team Status: Active Member Role Status Dates Daniel Cardoso [employer]OR [employer]-C Primary Care Provider Active Start: November Soco [...] Inactive Member Role Status Dates Daniel Cardoso EDITOR S[employer]-C Primary Care Provider Ac tive Start: January 04, 2025 End: January 04, 2025 Krissy Cortez MD Attending Provider Active Sta rt: January 04, 2025 End: January 04, 2025 Backing In Machine Tender Relationship Specialty Start Date End Date Ian Soares MD [address] [place] [address] PCP - General Family Medicine 09/11/24 Arielle Wheeler NP Nurse Practitioner Internal Medicine 01/16/24 Daniel Cardoso NP [address] [place] [address] Nurse Practitioner Family Medicine 09/11/24 Arturo Chanel MA [facility] 09/24/24 Backing In Machine Tender Relationship Specialty Start Date End Date Ian Soares MD [address] [place] [address] PCP - General [facility] Medicine 09/11/24 Arielle Wheeler EDITOR SOUND Nurse Practitioner Internal Medicine 01/16/24 Daniel Cardoso NP [address] [place] [address] Nurse Practitioner Family Medicine 09/11/24 Arturo Chanel MA [facility] 09/24/24 Backing In Machine Tender Relationship Specialty Start Date End Date Shaikh Sánchez MD [address] [place] [address] PCP - [facility] 11/14/23 Ian Soares MD [address] [place] [address] PCP - General [facility] 09/11/24 Arielle Wheeler NP [address] [place] [address] Nurse Practitioner Internal Medicine 01/16/24 Daniel Cardoso NP [address] [place] [address] Nurse Practitioner Family Medicine 09/11/24 Arturo Chanel MA [facility] 09/24/24 Backing In Machine Tender Relationship Specialty Start Date End Date Shaikh Sánchez MD [address] [place] [address] PCP - Linda MT 11/14/23 Ian Soares MD [address] [place] [address] PCP - General Family Medicine 09/11/24 Arielle Wheeler NP [address] [place] [address] Nurse Practitioner Internal Medicine 01/16/24 Daniel Cardoso NP [address] [place] [address] Nurse Practitioner Family Medicine 09/11/24 Arturo Chanel MA Family Medicine 09/24/24 Backing In Machine Tender Relationship Specialty Start Date End Date Shaikh Sánchez MD [address] [place] [address] PCP - Linda MT 11/14/23 Ian Soares MD [address] [place] [address] PCP - General Family Medicine 09/11/24 Arielle Wheeler NP [address] [place] [address] Nurse Practitioner Internal Medicine 01/16/24 Arturo Chanel MA Family Medicine 09/24/24 La Pack NP [address] [place] [address] Nurse Practitioner Family Medicine 02/06/25 Backing In Machine Tender Relationship Specialty Start Date End Date Shaikh Sánchez MD [address] [place] [address] PCP - [place] 11/14/23 Ian Soares MD [address] [place] [address] PCP - General Family Medicine 09/11/24 Arielle Wheeler NP [address] [place] [address] Nurse Practitioner Internal Medicine 01/16/24 Arturo Chanel MA Family Medicine 09/24/24 La Pack NP [address] [place] [address] Nurse Practitioner Family Medicine 02/06/25 Reason for Visit (unrecogniz ed section and [...] Hospital f/u Sore Throat Earache Right ear Reason Comments Suture / Staple Removal head FOR RECORDS PERTAINING TO PATIENTS WHO ARE [...] BE BASED ON THE PRIMARY CLINICAL RECORDS. [facility] [employer], [facility]. provides no warranty or guarantee of the accuracy or completeness of information in this document.
--- NOTE | 2025-02-20 07:30 | NM_ITS ---
Patient Name: JULIAN MONTAÑO MR#: [id number] : 1955 Exam Date: 02/20/2025 Ordering Doctor: GERMAINE GONZALEZ RADIOLOGY REPORT PROCEDURE: NM ORLY PERF SPECT REST STR COMPARISON: None. INDICATIONS: ABNORMAL EKG, SHORTNESS OF BREATH TECHNIQUE: Exam Description: Stress/Rest two day protocol gated SPECT Rest Imagin.3 mCi Tc-99m Cardiolite IV on 02/20/2025 Stress Imaging 25.0 mCi Tc-99m Cardiolite IV on 02/21/2025 Exercise Protocol: 0.4 mg Lexiscan given IV Heart Rate (bpm): Rest: 92 Max: 108 PMHR: 72 Blood Pressure: Rest: 124/80 Max: 132/76 Symptoms: Rest and peak stress ECG findings were pending, and the exercise portion of the study was pending per attending physician [facility] [place]. For more details, please see separate cardiac stress test report. FINDINGS: QUALITY OF STUDY: PERFUSION DEFECT: Good LOCATION: Apical SIZE: Small SEVERITY: Mild TYPE: Fixed WALL MOTION: Normal LV SIZE: 45 mL. TID / TCD: 0.9 LVEF: Calculated EF 52%. SUMMARY: Myocardial perfusion imaging study is ABNORMAL CONCLUSION: 1. Myocardial perfusion is abnormal 2. There is a fixed apical perfusion defect likely related to physiological apical thinning although an infarct cannot be ruled out 3. Global left ventricular systolic function is lower normal limits 4. No evidence of transient ischemic dilatation Dictated by: Katarzyna Vallecillo M.D. on 02/21/2025 at 14:27 Approved by: Katarzyna Vallecillo M.D. on 02/21/2025 at 14:31
== END 2025-02-20 07:13 | disposition home or self-care (01) ==
LOC: NM 07:12
PROVIDERS: PCP Nurse Practitioner; Visit Provider Internal Medicine
DX: R74.8 Abnormal levels of other serum enzymes (principal); R94.31 Abnormal electrocardiogram [ECG] [EKG]
CPT/HCPCS: 78452; A9500

== ENCOUNTER 2025-02-21 08:43 | Outpatient (OUT) | payer MEDICARE, MEDICAID, SELFPAY ==
--- OUTSIDE RECORDS SUMMARY | 2025-02-21 09:01 | XMS_ITS | CCD ---
Author Organization [facility] Care Team Providers Care Security Operations Center Analyst Name Role Phone CHALO, DR GIANNA PACHECO [...] Admitting Unavailable Shaikh Sánchez MD Unavailable [place] CARE TRANSITIONS NURSE, Arielle C Unavailable Shaikh Sánchez MD Primary Care Provider Kirstin Carreon LPN Unavailable Unavailable Ian Soares MD Primary Care Provider Daniel Cardoso NP Unavailable Gustavo Romero LPN Unavailable Unavailable [place] CARE TRANSITIONS NURSE, Arielle C Unavailable Arturo Chanel MA Unavailable Unavailable Walker CARE TRANSITIONS NURSE-CDaniel Primary Care Provid er Ramos ANGULO, Soco Admit Provider Daniel Garza MD Attending Provider Sara ANGULO, Cecilia Other Provider Hernandez ANGULO, Suzette Other Provider Jeancarlos ANGULO, Ryan Other Provider Kelly JAIME, Ilana Other Provider Hubert Mcguire DO Other Provider Beni ANGULO, Dave Hidalgo Other Provider PROVIDER, UNKNOWN Attending Unavailable PROVIDER, UNKNOWN Admitting Unavailable Gianna Isabel MD Primary Care Provider Unava iljorden Wheeler CARE TRANSITIONS NURSE, Arielle Edmonds Unavailable Walker GARZA, Daniel Unavailable [phone] Daniel Cardoso Primary Care Unavaila [place] [...] CARDOSO Attending UnavailDANIEL Humphrey Attending Unavailrocky Pack CARE TRANSITIONS NURSE, La Unavailable Medications Current Medications Medication Drug [...] 324 mg oral tablet (1 source) Start: End: take 1 tablet by mouth once daily ferrous gluconate (Fergon) 324 (38 Fe) MG tablet Indications: Iron deficiency TAKE 1 TABLET BY MOUTH DAILY 100 tablet 04/30/2024 07/07/2024 Discontinued (Therapy completed) fexofenadine hydrochloride 180 mg oral tablet (4 sources) Histamine-1 Receptor Antagonist take 1 tablet by mouth once daily fexofenadine (NADIRA) 180 mg tablet Take 180 mg by mouth daily. Active fluticasone propionate 0.05 mg/actuat metered dose nasal spray (4 sources) Corticosteroid take 1 spray(s) nasal route once daily fluticasone (FLONASE) 50 mcg/actuation nasal spray Administer 1 spray into each nostril daily. Active Fluticasone-Umeclidin- Vilant (Trelegy Ellipta) 200-62.5-25 MCG/ACT aerosol powder (20 sources) Start: Fluticasone-Umeclidin -Vilant (Trelegy Ellipta) 200-62.5-25 MCG/ACT aerosol powder Indications: Asthma with COPD (chronic obstructive pulmonary disease) ([facility]) Inhale 1 Inhalation Daily 3 each 1 08/27/2024 Active Start: 08-27-2024 End: 11-25-2024 Jrfmikkamub-Jtfagsiqd-Tihjcf (Trelegy Ellipta) 200-62.5-25 MCG/ACT aerosol powder Indications: Asthma with COPD (chronic obstructive pulmonary disease) ([facility]) Inhale 1 Inhalation Daily 3 each 1 08/27/2024 11/25/2024 Active Start: 06-11-2024 End: 08-27-2024 Elludmtppqs-Kdzyugytk-Hrzxqz (Trelegy Ellipta) 200-62.5-25 MCG/ACT aerosol powder Indications: Asthma with COPD (chronic obstructive pulmonary disease) ([facility]) Inhale 1 Inhalation Daily 3 each 1 06/11/2024 08/27/2024 Discontinued (Reorder) Start: 06-11-2024 End: 09-09-2024 Gqrzhzxyqcr-Bihohpgip-Hbrptz (Trelegy Ellipta) 200-62.5-25 MCG/ACT aerosol powder Indications: Asthma with COPD (chronic obstructive pulmonary disease) ([facility]) Inhale 1 Inhalation Daily 3 each 1 06/11/2024 09/09/2024 Active Edempdimdhq-Aganzapte-Ltrdxs er (3 sources) Start: 01-04-2025 Igedootrefx-Mazzitnkp-Pggzaq er (Trelegy Ellipta) 200-62.5-25 mcg blister with device Active INHALATION Twice daily January 04, 2025 9:12am Start: 12-10-2024 End: 01-04-2025 Tdqkheuknls-Gjqnrvlxw-Dibukj er (Trelegy Ellipta) 200-62.5-25 mcg blister with [...] (Hyzaar) 50-12.5 MG tablet Indications: Primary hypertension ([facility]) Take 1 tablet by mouth Daily 30 [...] day. Active LORazepam 0.5 mg oral tablet (19 sources) Benzodiazepine Start: 01-07-2025 End: 01-17-2025 take 1 tablet by mouth three times daily as needed for anxiety LORazepam (Ativan) 0.5 MG tablet Indications: ELADIO (generalized anxiety disorder) ([facility]) Take 1 tablet (0.5 mg) by mouth [...] in the morning. Active polyethylene glycol 3350 47042 mg powder for oral solution (4 sources) [...] Drug Class(es) Dates Sig (Normalized) Sig (Original) ferrous sulfate 325 mg delayed release oral tablet (20 sources) Start: 07-07-2024 End: 12-06-2025 take 1 tablet by mouth at mealtime ferrous sulfate (Fe Tabs) 325 (65 Fe) MG EC tablet Indications: 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 loss Take 1 tablet (325 mg) by mouth in the morning. Take with meals. Do not crush, chew, or split.. 30 tablet 12/06/2024 02/20/2025 Discontinued (Reorder) ferrous sulfate (IRON ORAL) Take by mouth. Active losartan potassium 50 mg oral tablet (20 [...] living] Onset: 12-09-2024 12-13-2024 Episodic Anxiety disorders (15 sources) Anxiety; Translations: [Anxiety disorder, unspecified] Onset: [...] [Asthma with COPD (chronic obstructive pulmonary disease) ([facility])] Onset: 11-21-2023 08-27-2024 Chronic Chronic obstructive pulmonary [...] Open wounds of head; neck; and trunk (10 sources) Scalp laceration; Translations: [Laceration without foreign [...] AUTO DIFFon BASOPHILS ABSOLUTE AUTO 0.1 N [facility] Basophils/100 WBC (Bld) 0.6 % 0.2 - 2.0 % [facility] Eosinophils/100 WBC (Bld) 1.5 % 0.9 - 7.0 % [facility] Erythrocyte distribution width (RBC) [Ratio] 15.9 % High 11.0 - 15.0 % [facility] Hematocrit (Bld) [Volume fraction] 36.1 % 36.0 - 48.0 % [facility] Hemoglobin (Bld) [Mass/Vol] 11.6 g/dL Low 12.0 - 16.0 g/dL [facility] IMMATURE GRANULOCYTES ABS AUTO 0.04 High [facility] Immature granulocytes/100 WBC (Bld) 0.4 % 0.0 - 0.5 % [facility] Interpretation and review of laboratory results Abnormal [facility] LYMPHOCYTES ABSOLUTE AUTO 1.6 [facility] Lymphocytes/100 WBC (Bld) 15.8 % Low 20.5 - 60.0 % [facility] MCH (RBC) [Entitic mass] 28.7 pg 26. 7 - 34.0 pg [facility] MCHC (RBC) [Mass/Vol] 32.1 g/dL 29.9 - 35.2 g/dL [facility] MCV (RBC) [Entitic vol] 89.4 fL 81.0 - 99.0 fL [facility] MONOCYTES ABSOLUTE AUTO [address] [facility] Monocytes/100 WBC (Bld) 9.6 % 1.7 - 12.0 % [facility] NEUTROPHILS ABSOLUTE AUTO 7.4 High [facility] Neutrophils/100 WBC (Bld) 72.1 % 43.0 - 75.0 % [facility] Platelet mean volume (Bld) [Entitic vol] 9.1 fL Low 9.5 - 13.5 fL [facility] TBH EO # 0.2 [facility] TB PLT 298 [facility] TB RBC 4.04 Low [facility] TBH WBC 10.2 [facility] MM TOMOSYNTHESIS SCREENING B Ion 02-18-2025 [place] [address] Mammography Report Signed Patient: JULIAN MONTAÑO MR#: [id number] : 1955 Acct:[id number] Age/Sex: 69 / F ADM Date: 02/18/25 Loc: MAMMO Attending Dr: La Pack NP Ordering Physician: La Pack NP Results: Date of Service: 02/18/25 Follow Up: Procedure(s): MM tomosynthesis screening BI Accession Number(s): [id number] cc: La Pack NP Patient Name: JULIAN MONTAÑO MR#: [id number] : 1955 Exam Date: 02/18/2025 Ordering Doctor: [...] uterine cancer at age 53. LOCATION: [facility] BREAST COMPOSITION: The breasts are almost entirely [...] Signed By: 02/18/25 1554 DD/ 1553 TD/TT: Dump Motor Operator: [facility] Radiology, Radiologist, MD - 02/18/2025 [place] [address] Mammography Report Signed Patient: JULIAN MONTAÑO MR#: [id number] : 1955 Acct:[id number] Age/Sex: 69 / F ADM Date: 02/18/25 Loc: MAMMO Attending Dr: La Pack NP Ordering Physician: La Pack NP Results: Date of Service: 02/18/25 Follow Up: Procedure(s): MM tomosynthesis screening BI Accession Number(s): [id number] cc: La Pack NP Patient Name: JULIAN MONTAÑO MR#: [id number] : 1955 Exam Date: 02/18/2025 Ordering Doctor: [...] uterine cancer at age 53. LOCATION: [facility] BREAST COMPOSITION: The breasts are almost entirely [...] Signed By: 02/18/25 1554 DD/ 1553 TD/TT: Dump Motor Operator: [facility] Radiology Study observation (narrative) [facility] MM TOMOSYNTHESIS SCREENING B IOrdered By: Radiologist Radiology on 02-18-2025 [facility] Work Phone: Alanine aminotransferase [En zymatic activity/volume] in Serum or PlasmaOrdered By: Daniel Garza on 12-14-2024 ALT [Catalytic activity/Vol] Alanine aminotransferase [Enzymatic activity/volume] in Serum or Plasma High 7-52 [facility] Albumin [Mass/volume] in Ser um or Plasma by Bromocresol green (BCG) dye binding methoOrdered By: Daniel Garza on 12-14-2024 Albumin BCG dye [Mass/Vol] Albumin [Mass/volume] in Serum or Plasma by Bromocresol green (BCG) dye binding metho 3.5-5.7 [facility] Alkaline phosphatase [Enzyma tic activity/volume] in Serum or PlasmaOrdered By: Daniel Garza on 12-14-2024 ALP [Catalytic activity/Vol] Alkaline phosphatase [Enzymatic activity/volume] in Serum or Plasma 34-104 [facility] Aspartate aminotransferase [ Enzymatic activity/volume] in Serum or PlasmaOrdered By: Daniel Garza on 12-14-2024 AST [Catalytic activity/Vol] Aspartate aminotransferase [Enzymatic activity/volume] in Serum or Plasma 13-39 [facility] Basophils Auto (Bld) [#/Vol] Ordered By: Daniel Garza on 12-14-2024 Basophils (Bld) [#/Vol] Automated basoph il count 0.0-0.2 [facility] Basophils/100 WBC Auto (Bld) Ordered By: Daniel Garza on 12-14-2024 Basophils/100 WBC (Bld) Automated basophil % . [facility] Bilirubin.total [Mass/volume ] in Serum or PlasmaOrdered By: Daniel Garza on 12-14-2024 Bilirubin [Mass/Vol] Bilirubin.total [Mass/volume] in Serum or Plasma 0.3-1.0 [facility] Calcium [Mass/volume] in Ser um or PlasmaOrdered By: Daniel Garza on 12-14-2024 Calcium [Mass/Vol] Calcium [Mass/volume ] in Serum or Plasma 8.6-10.3 [facility] Carbon dioxide, total [Moles /volume] in Serum or PlasmaOrdered By: Daniel Garza on 12-14-2024 CO2 [Moles/Vol] Carbon dioxide, tota l [Moles/volume] in Serum or Plasma 21.0-31.0 [facility] Chloride [Moles/volume] in S idris or PlasmaOrdered By: Daniel Garza on 12-14-2024 Chloride [Moles/Vol] Chloride [Moles/volume] in Serum or Plasma Low 98-107 [facility] Complete Blood Count Auto Di ffon 12-14-2024 Basophils (Bld) [#/Vol] 0.0 10*3/uL Normal 0.0-0.2 [facility] Comment on above: Result Comment: PERF ORMED BY: [place] [address] PATHOLOGIST AIRPORT MANAGER MANDY ACUÑA M.D. Performed By: #### C MP, CBC #### [facility] [address] Basophils/100 WBC (Bld) 0.2 % Normal . [facility] Comment on above: Performed By: #### C MP, CBC #### [address] Eosinophils (Bld) [#/Vol] 0.0 10*3/uL Normal 0.0-0.45 [facility] Comment on above: Performed By: #### C MP, CBC #### [address] Eosinophils/100 WBC (Bld) 0.0 % Normal . [facility] Comment on above: Performed By: #### C MP, CBC #### [address] Erythrocyte distribution width (RBC) [Ratio] 15.3 % Normal 11.9-15.3 [facility] Comment on above: Performed By: #### C MP, CBC #### [address] Hematocrit (Bld) [Volume fraction] 40.4 % Normal 34.0-46.4 [facility] Comment on above: Performed By: #### C MP, CBC #### [address] Hemoglobin (Bld) [Mass/Vol] 13.4 g/dL Normal 11.8-15.4 [facility] Comment on above: Performed By: #### C MP, CBC #### [address] Lymphocytes (Bld) [#/Vol] 0.6 10*3/uL Low 1.00-4.8 [facility] Comment on above: Performed By: #### C MP, CBC #### [place] [address] [place] Lymphocytes/100 WBC (Bld) 7.0 % Normal . [facility] Comment on above: Performed By: #### C MP, CBC #### [address] MCH (RBC) [Entitic mass] 28.5 pg Normal 24.7-34.3 [facility] Comment on above: Performed By: #### C MP, CBC #### [address] MCV (RBC) [Entitic vol] 85.6 fL Normal 80-100 [facility] Comment on above: Performed By: #### C MP, CBC #### [address] Mean Corpuscular HGB Conc 33.3 g/dL Normal 32.0-35.0 [facility] Comment on above: Performed By: #### C MP, CBC #### [address] Monocytes (Bld) [#/Vol] 0.7 10*3/uL Normal 0.0-0.8 [facility] Comment on above: Performed By: #### C MP, CBC #### [address] Monocytes/100 WBC (Bld) 8.2 % Normal . [facility] Comment on above: Performed By: #### C MP, CBC #### [address] Neutrophils (Bld) [#/Vol] 7.2 10*3/uL Normal 1.8-7.7 [facility] Comment on above: Performed By: #### C MP, CBC #### [address] Neutrophils/100 WBC (Bld) 84.6 % Normal . [facility] Comment on above: Performed By: #### C MP, CBC #### [address] NRBC% 0.1 /100{WBC} Normal 0-0.5 [facility] Comment on above: Performed By: #### C MP, CBC #### [address] Platelet mean volume (Bld) [Entitic vol] 7.4 fL Normal 6.3-10.7 [facility] Comment on above: Performed By: #### C MP, CBC #### [address] Platelets (Bld) [#/Vol] 276 10*3/uL Normal 150-450 [facility] Comment on above: Performed By: #### C MP, CBC #### [address] RBC (Bld) [#/Vol] 4.72 10*6/uL Normal 3.60-5.00 [facility] Comment on above: Performed By: #### C MP, CBC #### [address] WBC (Bld) [#/Vol] 8.6 10*3/uL Normal 3.8-11.6 [facility] Comment on above: Performed By: #### C MP, CBC #### [address] Comprehensive Metabolic Pane ana 12-14-2024 Albumin [Mass/Vol] 3.7 g/dL Normal 3.5-5.7 [facility] Comment on above: Performed By: #### C MP, CBC #### [address] Albumin/Globulin [Mass ratio] 1.2 {ratio} Normal [facility] Comment on above: Performed By: #### C MP, CBC #### [address] ALP [Catalytic activity/Vol] 84 U/L Normal 34-104 [facility] Comment on above: Performed By: #### C MP, CBC #### [address] ALT [Catalytic activity/Vol] 55 U/L High 7-52 [facility] Comment on above: Performed By: #### C MP, CBC #### [address] Anion gap [Moles/Vol] 12.7 mmol/L Normal 6.0-15.0 [facility] Comment on above: Performed By: #### C MP, CBC #### [address] AST [Catalytic activity/Vol] 29 U/L Normal 13-39 [facility] Comment on above: Performed By: #### C MP, CBC #### [address] Bilirubin [Mass/Vol] 0.6 mg/dL Normal 0.3-1.0 [facility] Comment on above: Performed By: #### C MP, CBC #### [address] Calcium [Mass/Vol] 9.2 mg/dL Normal 8.6-10.3 [facility] Comment on above: Performed By: #### C MP, CBC #### [address] Chloride [Moles/Vol] 93 mmol/L Low 98-107 [facility] Comment on above: Performed By: #### C MP, CBC #### [address] CO2 [Moles/Vol] 29.4 mmol/L Normal 21.0-31.0 [facility] Comment on above: Performed By: #### C MP, CBC #### [address] Creatinine [Mass/Vol] 0.81 mg/dL Normal 0.60-1.20 [facility] Comment on above: Performed By: #### C MP, CBC #### [place] [address] [place] Creatinine Clr Calc Pharmacy 66.51 Normal [facility] Comment on above: Result Comment: PERF ORMED BY: [place] [address] PATHOLOGIST AIRPORT MANAGER MANDY ACUÑA M.D. Performed By: #### C MP, CBC #### [place] [address] [place] GFR/1.73 sq M.predicted MDRD (S/P/Bld) [Vol rate/Area] mL/min/{1.73_m2} Normal [facility] Comment on above: Performed By: #### C MP, CBC #### [address] Globulin (S) [Mass/Vol] 3.2 g/dL Normal T [facility] Comment on above: Performed By: #### C MP, CBC #### [address] Glucose [Mass/Vol] 145 mg/dL High 70-100 [facility] Comment on above: Result Comment: [facility] Glucose Reference Range is dependent on time and content of last meal. Glucose of more than 200 mg/dL in a nonstressed, ambulatory subject supports the diagnosis of Diabetes Mellitus. ADA recommended reference range Performed By: #### C MP, CBC #### [address] Potassium [Moles/Vol] 4.1 mmol/L Normal 3.5-5.1 [facility] Comment on above: Performed By: #### C MP, CBC #### [address] Protein [Mass/Vol] 6.9 g/dL Normal 6.4-8.9 [facility] Comment on above: Performed By: #### C MP, CBC #### [address] Sodium [Moles/Vol] 131 mmol/L Low 136-145 [facility] Comment on above: Performed By: #### C MP, CBC #### [address] Urea nitrogen [Mass/Vol] 24 mg/dL Normal 7-25 [facility] Comment on above: Performed By: #### C MP, CBC #### [place] [address] [place] Creatinine [Mass/volume] in Serum or PlasmaOrdered By: Daniel Garza on 12-14-2024 Creatinine [Mass/Vol] Creatinine [Mass/volume] in Serum or Plasma 0.60-1.20 [facility] Eosinophils Auto (Bld) [#/Vo l]Ordered By: Daniel Garza on 12-14-2024 Eosinophils (Bld) [#/Vol] Automated eosinophil count 0.0-0.45 [facility] Eosinophils/100 WBC Auto (Bl d)Ordered By: Daniel Garza on 12-14-2024 Eosinophils/100 WBC (Bld) Automated eosinophil % . [facility] Erythrocyte distribution wid th Auto (RBC) [Ratio]Ordered By: Daniel Garza on 12-14-2024 Erythrocyte distribution width (RBC) [Ratio] Erythrocyte distribution width [Ratio] by Automated count 11.9-15.3 [facility] Globulin Calc (S) [Mass/Vol] Ordered By: Daniel Garza on 12-14-2024 Globulin (S) [Mass/Vol] Serum globulin measurement by calculation (mass/volume) [facility] Glucose Glucometer (BldC) [M ass/Vol]Ordered By: Daniel Garza on 12-14-2024 Glucose [Mass/Vol] Capillary blood glucose measurement by glucometer (mass/volume) [facility] Comment on above: Random Glucose Refer ence Range is dependent on time and content of last meal. Glucose of more than 200 mg/dL in a nonstressed, ambulatory subject supports the diagnosis of Diabetes Mellitus. Glucose Poct Glucometerson 0 12-14-2024 Glucose [Mass/Vol] 236 mg/dL Normal [facility] Comment on above: Result Comment: [place] Glucose Reference Range is dependent on time and content of last meal. Glucose of more than 200 mg/dL in a nonstressed, ambulatory subject supports the diagnosis of Diabetes Mellitus. PERFORMED BY: [facility] [address] [place] [address] PATHOLOGIST AIRPORT MANAGER MANDY ACUÑA M.D. Performed By: #### G LULS ####Point of Care testing, Glucose [Mass/Vol] 154 mg/dL Normal [facility] Comment on above: Result Comment: [facility] Glucose Reference Range is dependent on time and content of last meal. Glucose of more than 200 mg/dL in a nonstressed, ambulatory subject supports the diagnosis of Diabetes Mellitus. PERFORMED BY: [facility] [address] [place] [address] PATHOLOGIST AIRPORT MANAGER MANDY ACUÑA M.D. Performed By: #### G LULS ####Point of Care testing, Glucose [Mass/Vol] 105 mg/dL Normal [facility] Comment on above: Result Comment: [place] [facility] Glucose Reference Range is dependent on time and content of last meal. Glucose of more than 200 mg/dL in a nonstressed, ambulatory subject supports the diagnosis of Diabetes Mellitus. PERFORMED BY: [facility] [place] [address] PATHOLOGIST AIRPORT MANAGER MANDY ACUÑA M.D. Performed By: #### G LULS ####Point of Care testing, Glucose [Mass/volume] in Ser um or PlasmaOrdered By: Daniel Garza on 12-14-2024 Glucose [Mass/Vol] Glucose [Mass/volume ] in Serum or Plasma High 70-100 [facility] Comment on above: ADA recommended refe rence rangeRandom Glucose Reference Range is dependent on time and content of last meal. Glucose of more than 200 mg/dL in a nonstressed, ambulatory subject supports the diagnosis of Diabetes Mellitus. Hematocrit Auto (Bld) [Volum e fraction]Ordered By: Daniel Garza on 12-14-2024 Hematocrit (Bld) [Volume fraction] Hematocrit [Volume Fraction] of Blood by Automated count 34.0-46.4 [facility] Hemoglobin [Mass/volume] in BloodOrdered By: Daniel Garza on 12-14-2024 Hemoglobin (Bld) [Mass/Vol] Hemoglobin [Mass/volume] in Blood 11.8-15.4 [facility] Leukocytes [#/volume] correc brendan for nucleated erythrocytes in Blood by Automated counOrdered By: Daniel Garza on 12-14-2024 WBC corrected for nucl RBC Auto (Bld) [#/Vol] Leukocytes [#/volume] corrected for nucleated erythrocytes in Blood by Automated coun 3.8-11.6 [facility] Lymphocytes Auto (Bld) [#/Vo l]Ordered By: Daniel Garza on 12-14-2024 Lymphocytes (Bld) [#/Vol] Lymphocytes [#/volume] in Blood by Automated count Low 1.00-4.8 [facility] Lymphocytes/100 WBC Auto (Bl d)Ordered By: Daniel Garza on 12-14-2024 Lymphocytes/100 WBC (Bld) Lymphocytes/100 leukocytes in Blood by Automated count . [facility] MCH Auto (RBC) [Entitic mass ]Ordered By: Daniel Garza on 12-14-2024 MCH (RBC) [Entitic mass] MCH [Entitic ma ss] by Automated count 24.7-34.3 [facility] MCHC Auto (RBC) [Mass/Vol]Or dered By: Daniel Garza on 12-14-2024 MCHC (RBC) [Mass/Vol] MCHC [Mass/volume] by Automated count 32.0-35.0 [facility] MCV Auto (RBC) [Entitic vol] Ordered By: Daniel Garza on 12-14-2024 MCV (RBC) [Entitic vol] MCV [Entitic vol ume] by Automated count 80-100 [facility] [facility] Monocytes Auto (Bld) [#/Vol] Ordered By: Daniel Garza on 12-14-2024 Monocytes (Bld) [#/Vol] Automated blood monocyte count 0.0-0.8 [facility] Monocytes/100 WBC Auto (Bld) Ordered By: Daniel Garza on 12-14-2024 Monocytes/100 WBC (Bld) Automated monocyte % . [facility] Neutrophils Auto (Bld) [#/Vo l]Ordered By: Daniel Garza on 12-14-2024 Neutrophils (Bld) [#/Vol] Neutrophils [#/volume] in Blood by Automated count 1.8-7.7 [facility] Neutrophils/100 WBC Auto (Bl d)Ordered By: Daniel Garza on 12-14-2024 Neutrophils/100 WBC (Bld) Automated neutrophil % . [facility] No Panel InformationOrdered By: Daniel Garza on 12-14-2024 Estimated GFR (CKD-EPI) > 60.0 mL/Min [facility] Creatinine Clearance (Chem 66.51 [facility] Nucleated erythrocytes [Pres ence] in Blood by Automated countOrdered By: Daniel Garza on 12-14-2024 Nucleated RBC Auto Ql (Bld) Nucleated erythrocytes [Presence] in Blood by Automated count 0-0.5 [facility] Platelet mean volume Auto (B ld) [Entitic vol]Ordered By: Daniel Garza on 12-14-2024 Platelet mean volume (Bld) [Entitic vol] Platelet mean volume [Entitic volume] in Blood by Automated count 6.3-10.7 [facility] Platelets Auto (Bld) [#/Vol] Ordered By: Daniel Garza on 12-14-2024 Platelets (Bld) [#/Vol] Platelets [#/vol ume] in Blood by Automated count 150-450 [facility] Potassium [Moles/volume] in Serum or PlasmaOrdered By: Daniel Garza on 12-14-2024 Potassium [Moles/Vol] Potassium [Moles/volume] in Serum or Plasma 3.5-5.1 [facility] Protein [Mass/volume] in Ser um or PlasmaOrdered By: Daniel Garza on 12-14-2024 Protein [Mass/Vol] Protein [Mass/volume ] in Serum or Plasma 6.4-8.9 [facility] RBC Auto (Bld) [#/Vol]Ordere d By: Daniel Garza on 12-14-2024 RBC (Bld) [#/Vol] Erythrocytes [#/volume] in Blood by Automated count 3.60-5.00 [facility] Serum or plasma albumin/glob ulin mass ratioOrdered By: Daniel Garza on 12-14-2024 Albumin/Globulin [Mass ratio] Serum or plasma albumin/globulin mass ratio [facility] Serum or plasma anion gap de terminationOrdered By: Daniel Garza on 12-14-2024 Anion gap [Moles/Vol] Serum or plasma an ion gap determination 6.0-15.0 [facility] Sodium [Moles/volume] in Ser um or PlasmaOrdered By: Daniel Garza on 12-14-2024 Sodium [Moles/Vol] Sodium [Moles/volume ] in Serum or Plasma Low 136-145 [facility] Urea nitrogen [Mass/volume] in Serum or PlasmaOrdered By: Daniel Garza on 12-14-2024 Urea nitrogen [Mass/Vol] Urea nitrogen [Mass/volume] in Serum or Plasma 7-25 [facility] WBC Auto (Bld) [#/Vol]Ordere d By: Daniel Garza on 12-14-2024 WBC (Bld) [#/Vol] Leukocytes [#/volume ] in Blood by Automated count 3.8-11.6 [facility] Complete Blood Count Auto Di ffon 12-13-2024 Basophils (Bld) [#/Vol] 0.0 10*3/uL Normal 0.0-0.2 [facility] Comment on above: Result Comment: PERF ORMED BY: [place] [address] PATHOLOGIST AIRPORT MANAGER MANDY ACUÑA M.D. Performed By: #### C ELDON, PHOS #### [address] Basophils/100 WBC (Bld) 0.1 % Normal . T abilio [facility] Comment on above: Performed By: #### C ELDON, PHOS #### [address] Eosinophils (Bld) [#/Vol] 0.0 10*3/uL Normal 0.0-0.45 [facility] Comment on above: Performed By: #### C ELDON, PHOS #### [address] Eosinophils/100 WBC (Bld) 0.0 % Normal . [facility] Comment on above: Performed By: #### C MP, PHOS #### [address] Erythrocyte distribution width (RBC) [Ratio] 15.4 % High 11.9-15.3 [facility] Comment on above: Performed By: #### C MP, PHOS #### [address] Hematocrit (Bld) [Volume fraction] 40.5 % Normal 34.0-46.4 [facility] Comment on above: Performed By: #### C MP, PHOS #### [address] Hemoglobin (Bld) [Mass/Vol] 13.4 g/dL Normal 11.8-15.4 [facility] Comment on above: Performed By: #### C MP, PHOS #### [address] Lymphocytes (Bld) [#/Vol] 0.7 10*3/uL Low 1.00-4.8 [facility] Comment on above: Performed By: #### C MP, PHOS #### [address] Lymphocytes/100 WBC (Bld) 6.4 % Normal . [facility] Comment on above: Performed By: #### C MP, PHOS #### [address] MCH (RBC) [Entitic mass] 28.5 pg Normal 24.7-34.3 [facility] Comment on above: Performed By: #### C ELDON, PHOS #### [address] MCV (RBC) [Entitic vol] 86.4 fL Normal 80-100 [facility] Comment on above: Performed By: #### C MP, PHOS #### [address] Mean Corpuscular HGB Conc 33.0 g/dL Normal 32.0-35.0 [facility] Comment on above: Performed By: #### C MP, PHOS #### [address] Monocytes (Bld) [#/Vol] 0.7 10*3/uL Normal 0.0-0.8 [facility] Comment on above: Performed By: #### C MP, PHOS #### [address] Monocytes/100 WBC (Bld) 6.5 % Normal . [facility] Comment on above: Performed By: #### C MP, PHOS #### [address] Neutrophils (Bld) [#/Vol] 9.3 10*3/uL High 1.8-7.7 [facility] Comment on above: Performed By: #### C MP, PHOS #### [address] Neutrophils/100 WBC (Bld) 87.0 % Normal . [facility] Comment on above: Performed By: #### C MP, PHOS #### [address] NRBC% 0.1 /100{WBC} Normal 0-0.5 [facility] Comment on above: Performed By: #### C MP, PHOS #### [address] Platelet mean volume (Bld) [Entitic vol] 7.3 fL Normal 6.3-10.7 [facility] Comment on above: Performed By: #### C MP, PHOS #### [address] Platelets (Bld) [#/Vol] 302 10*3/uL Normal 150-450 [facility] Comment on above: Performed By: #### C MP, PHOS #### [address] RBC (Bld) [#/Vol] 4.68 10*6/uL Normal 3.60-5.00 [facility] Comment on above: Performed By: #### C MP, PHOS #### [address] WBC (Bld) [#/Vol] 10.6 10*3/uL Normal 3.8-11.6 [facility] Comment on above: Performed By: #### C MP, PHOS #### [address] Comprehensive Metabolic Pane ana 12-13-2024 Albumin [Mass/Vol] 3.8 g/dL Normal 3.5-5.7 [facility] Comment on above: Performed By: #### C MP, PHOS #### [address] Albumin/Globulin [Mass ratio] 1.2 {ratio} Normal [facility] Comment on above: Performed By: #### C MP, PHOS #### [address] ALP [Catalytic activity/Vol] 84 U/L Normal 34-104 [facility] Comment on above: Performed By: #### C MP, PHOS #### [address] ALT [Catalytic activity/Vol] 65 U/L High 7-52 [facility] Comment on above: Performed By: #### C ELDON, PHOS #### [address] Anion gap [Moles/Vol] 14.3 mmol/L Normal 6.0-15.0 [facility] Comment on above: Performed By: #### C MP, PHOS #### [address] AST [Catalytic activity/Vol] 38 U/L Normal 13-39 [facility] Comment on above: Performed By: #### C MP PHOS #### [address] Bilirubin [Mass/Vol] 0.5 mg/dL Normal 0.3-1.0 [facility] Comment on above: Performed By: #### C MP, PHOS #### [address] Calcium [Mass/Vol] 8.9 mg/dL Normal 8.6-10.3 [facility] Comment on above: Performed By: #### C MP, PHOS #### [address] Chloride [Moles/Vol] 95 mmol/L Low 98-107 [facility] Comment on above: Performed By: #### C MP, PHOS #### [address] CO2 [Moles/Vol] 30.8 mmol/L Normal 21.0-31.0 [facility] Comment on above: Performed By: #### C MP, PHOS #### [address] Creatinine [Mass/Vol] 0.99 mg/dL Normal 0.60-1.20 [facility] Comment on above: Performed By: #### C MP, PHOS #### [address] Creatinine Clr Calc Pharmacy 54.42 Normal [facility] Comment on above: Result Comment: PERF ORMED BY: [place] [address] PATHOLOGIST AIRPORT MANAGER MANDY ACUÑA M.D. Performed By: #### C MP, PHOS #### [address] GFR/1.73 sq M.predicted MDRD (S/P/Bld) [Vol rate/Area] mL/min/{1.73_m2} Normal [facility] Comment on above: Performed By: #### C ELDON, PHOS #### [address] Globulin (S) [Mass/Vol] 3.1 g/dL Normal T [facility] Comment on above: Performed By: #### C MP, PHOS #### [address] Glucose [Mass/Vol] 97 mg/dL Normal 70-100 [facility] Comment on above: Result Comment: [place] Glucose Reference Range is dependent on time and content of last meal. Glucose of more than 200 mg/dL in a nonstressed, ambulatory subject supports the diagnosis of Diabetes Mellitus. ADA recommended reference range Performed By: #### C MP, PHOS #### [address] Potassium [Moles/Vol] 4.1 mmol/L Normal 3.5-5.1 [facility] Comment on above: Performed By: #### C MP, PHOS #### [address] Protein [Mass/Vol] 6.9 g/dL Normal 6.4-8.9 [facility] Comment on above: Performed By: #### C LUCY COLÓN #### [address] Sodium [Moles/Vol] 136 mmol/L Normal 136-145 [facility] Comment on above: Performed By: #### C ELDON, PHOS #### [address] Urea nitrogen [Mass/Vol] 22 mg/dL Normal 7-25 [facility] Comment on above: Performed By: #### C LAMAR COLÓNS #### [address] Glucose Poct Glucometerson 0 12-13-2024 Commemt1 Glu2: Cleaned Meter Normal [facility] Comment on above: Result Comment: PERF ORMED BY: [place] [address] PATHOLOGIST AIRPORT MANAGER MANDY ACUÑA M.D. Performed By: #### G MANSI #### Point of Care testing , Glucose [Mass/Vol] 277 mg/dL Normal [facility] Comment on above: Result Comment: [place] Glucose Reference Range is dependent on time and content of last meal. Glucose of more than 200 mg/dL in a nonstressed, ambulatory subject supports the diagnosis of Diabetes Mellitus. Performed By: #### G LULS #### Point of Care testing , Glucose [Mass/Vol] 141 mg/dL Normal [facility] Comment on above: Result Comment: [place] Glucose Reference Range is dependent on time and content of last meal. Glucose of more than 200 mg/dL in a nonstressed, ambulatory subject supports the diagnosis of Diabetes Mellitus. PERFORMED BY: [place] [address] PATHOLOGIST AIRPORT MANAGER MANDY ACUÑA M.D. Performed By: #### G LULS #### Point of Care testing , Glucose [Mass/Vol] 150 mg/dL Normal [facility] Comment on above: Result Comment: [facility] Glucose Reference Range is dependent on time and content of last meal. Glucose of more than 200 mg/dL in a nonstressed, ambulatory subject supports the diagnosis of Diabetes Mellitus. PERFORMED BY: [place] [address] PATHOLOGIST AIRPORT MANAGER MANDY ACUÑA M.D. Performed By: #### G LULS ####Point of Care testing, Glucose [Mass/Vol] 117 mg/dL Normal [facility] Comment on above: Result Comment: [facility] Glucose Reference Range is dependent on time and content of last meal. Glucose of more than 200 mg/dL in a nonstressed, ambulatory subject supports the diagnosis of Diabetes Mellitus. PERFORMED BY: [place] [address] PATHOLOGIST AIRPORT MANAGER MANDY ACUÑA M.D. Performed By: #### G LULS #### Point of Care testing , No Panel InformationOrdered By: Daniel Garza on 12-13-2024 Bedside Glucose Comment Glu2: cleaned meter [facility] Complete Blood Count Auto Di ffon 12-12-2024 Basophils (Bld) [#/Vol] 0.0 10*3/uL Normal 0.0-0.2 [facility] Comment on above: Result Comment: PERF ORMED BY: [place] [address] PATHOLOGIST AIRPORT MANAGER MANDY ACUÑA M.D. Performed By: #### C MP, PHOS #### [place] [address] [place] Basophils/100 WBC (Bld) 0.0 % Normal . T [facility] Comment on above: Performed By: #### C MP, PHOS #### [facility] [address] [place] [address] [place] Eosinophils (Bld) [#/Vol] 0.0 10*3/uL Normal 0.0-0.45 [facility] Comment on above: Performed By: #### C ELDON PHOS #### [address] Eosinophils/100 WBC (Bld) 0.0 % Normal . [facility] Comment on above: Performed By: #### C MP, PHOS #### [address] Erythrocyte distribution width (RBC) [Ratio] 15.8 % High 11.9-15.3 [facility] Comment on above: Performed By: #### C MP, PHOS #### [address] Hematocrit (Bld) [Volume fraction] 34.5 % Normal 34.0-46.4 [facility] Comment on above: Performed By: #### C ELDON, PHOS #### [address] Hemoglobin (Bld) [Mass/Vol] 11.3 g/dL Low 11.8-15.4 [facility] Comment on above: Performed By: #### C MP, PHOS #### [address] Lymphocytes (Bld) [#/Vol] 0.3 10*3/uL Low 1.00-4.8 [facility] Comment on above: Performed By: #### C ELDON, PHOS #### [address] Lymphocytes/100 WBC (Bld) 2.2 % Normal . [facility] Comment on above: Performed By: #### C MP, PHOS #### [address] MCH (RBC) [Entitic mass] 28.0 pg Normal 24.7-34.3 [facility] Comment on above: Performed By: #### C MP, PHOS #### [address] MCV (RBC) [Entitic vol] 85.4 fL Normal 80-100 [facility] Comment on above: Performed By: #### C MP, PHOS #### [address] Mean Corpuscular HGB Conc 32.8 g/dL Normal 32.0-35.0 [facility] Comment on above: Performed By: #### C MP, PHOS #### [address] Monocytes (Bld) [#/Vol] 0.6 10*3/uL Normal 0.0-0.8 [facility] Comment on above: Performed By: #### C MP, PHOS #### [address] Monocytes/100 WBC (Bld) 4.8 % Normal . T [facility] Comment on above: Performed By: #### C MP, PHOS #### [address] Neutrophils (Bld) [#/Vol] 10.8 10*3/uL High 1.8-7.7 [facility] Comment on above: Performed By: #### C MP, PHOS #### [address] Neutrophils/100 WBC (Bld) 93.0 % Normal . [facility] Comment on above: Performed By: #### C MP, PHOS #### [address] NRBC% 0.0 /100{WBC} Normal 0-0.5 [facility] Comment on above: Performed By: #### C MP, PHOS #### [place] [address] [place] Platelet mean volume (Bld) [Entitic vol] 7.4 fL Normal 6.3-10.7 [facility] Comment on above: Performed By: #### C MP, PHOS #### [place] [address] [place] Platelets (Bld) [#/Vol] 282 10*3/uL Normal 150-450 [facility] Comment on above: Performed By: #### C MP, PHOS #### [address] RBC (Bld) [#/Vol] 4.04 10*6/uL Normal 3.60-5.00 [facility] Comment on above: Performed By: #### C MP, PHOS #### [address] WBC (Bld) [#/Vol] 11.6 10*3/uL Normal 3.8-11.6 [facility] Comment on above: Performed By: #### C MP, PHOS #### [address] Comprehensive Metabolic Pane ana 12-12-2024 Albumin [Mass/Vol] 3.6 g/dL Normal 3.5-5.7 [facility] Comment on above: Performed By: #### C MP, PHOS #### [address] Albumin/Globulin [Mass ratio] 1.3 {ratio} Normal [facility] Comment on above: Performed By: #### C MP, PHOS #### [address] ALP [Catalytic activity/Vol] 72 U/L Normal 34-104 [facility] Comment on above: Performed By: #### C MP, PHOS #### [address] ALT [Catalytic activity/Vol] 67 U/L High 7-52 [facility] Comment on above: Performed By: #### C MP, PHOS #### [address] Anion gap [Moles/Vol] 12.5 mmol/L Normal 6.0-15.0 [facility] Comment on above: Performed By: #### C MP, PHOS #### [address] AST [Catalytic activity/Vol] 41 U/L High 13-39 [facility] Comment on above: Performed By: #### C MP, PHOS #### [address] Bilirubin [Mass/Vol] 0.4 mg/dL Normal 0.3-1.0 [facility] Comment on above: Performed By: #### C ELDON, PHOS #### [address] Calcium [Mass/Vol] 8.3 mg/dL Low 8.6-10.3 [facility] Comment on above: Performed By: #### C ELDON, PHOS #### [address] Chloride [Moles/Vol] 101 mmol/L Normal 98-107 [facility] Comment on above: Performed By: #### C ELDON, PHOS #### [address] CO2 [Moles/Vol] 29.2 mmol/L Normal 21.0-31.0 [facility] Comment on above: Performed By: #### C ELDON, PHOS #### [address] Creatinine [Mass/Vol] 0.65 mg/dL Normal 0.60-1.20 [facility] Comment on above: Performed By: #### C ELDON, PHOS #### [address] Creatinine Clr Calc Pharmacy 67.88 Normal [facility] Comment on above: Performed By: #### C ELDON, PHOS #### [address] GFR/1.73 sq M.predicted MDRD (S/P/Bld) [Vol rate/Area] mL/min/{1.73_m2} Normal [facility] Comment on above: Performed By: #### C ELDON, PHOS #### [address] Globulin (S) [Mass/Vol] 2.7 g/dL Normal T [facility] Comment on above: Performed By: #### C ELDON, PHOS #### [address] [place] [address] [place] Glucose [Mass/Vol] 123 mg/dL High 70-100 [facility] Comment on above: Result Comment: [place] Glucose Reference Range is dependent on time and content of last meal. Glucose of more than 200 mg/dL in a nonstressed, ambulatory subject supports the diagnosis of Diabetes Mellitus. ADA recommended reference range Performed By: #### C MP, PHOS #### [place] [address] [place] Potassium [Moles/Vol] 3.7 mmol/L Normal 3.5-5.1 [facility] Comment on above: Performed By: #### C MP, PHOS #### [address] Protein [Mass/Vol] 6.3 g/dL Low 6.4-8.9 [facility] Comment on above: Performed By: #### C MP, PHOS #### [place] [address] [place] Sodium [Moles/Vol] 139 mmol/L Normal 136-145 [facility] Comment on above: Performed By: #### C MP, PHOS #### [address] Urea nitrogen [Mass/Vol] 16 mg/dL Normal 7-25 [facility] Comment on above: Performed By: #### C MP, PHOS #### [address] Glucose Poct Glucometerson 0 12-12-2024 Commemt1 Glu2: Cleaned Meter Normal [facility] Comment on above: Result Comment: PERF ORMED BY: [place] [address] PATHOLOGIST AIRPORT MANAGER MANDY ACUÑA M.D. Performed By: #### G MANSI ####Point of Care testing, Glucose [Mass/Vol] 114 mg/dL Normal [facility] Comment on above: Result Comment: [facility] Glucose Reference Range is dependent on time and content of last meal. Glucose of more than 200 mg/dL in a nonstressed, ambulatory subject supports the diagnosis of Diabetes Mellitus. Performed By: #### G LULS ####Point of Care testing, Glucose [Mass/Vol] 107 mg/dL Normal [facility] Comment on above: Result Comment: [facility] Glucose Reference Range is dependent on time and content of last meal. Glucose of more than 200 mg/dL in a nonstressed, ambulatory subject supports the diagnosis of Diabetes Mellitus. PERFORMED BY: [address] [place] [address] PATHOLOGIST AIRPORT MANAGER MANDY ACUÑA M.D. Performed By: #### G LULS ####Point of Care testing, Glucose [Mass/Vol] 177 mg/dL Normal [facility] Comment on above: Result Comment: [facility] Glucose Reference Range is dependent on time and content of last meal. Glucose of more than 200 mg/dL in a nonstressed, ambulatory subject supports the diagnosis of Diabetes Mellitus. PERFORMED BY: [address] [place] [address] PATHOLOGIST AIRPORT MANAGER MANDY ACUÑA M.D. Performed By: #### G LULS ####Point of Care testing, Glucose [Mass/Vol] 150 mg/dL Normal [facility] Comment on above: Result Comment: [facility] Glucose Reference Range is dependent on time and content of last meal. Glucose of more than 200 mg/dL in a nonstressed, ambulatory subject supports the diagnosis of Diabetes Mellitus. PERFORMED BY: [facility] [address] [place] [address] PATHOLOGIST AIRPORT MANAGER MANDY ACUÑA M.D. Performed By: #### G LULS ####Point of Care testing, Phosphate [Mass/volume] in S idris or PlasmaOrdered By: Daniel Garza on 12-12-2024 Phosphate [Mass/Vol] Phosphate [Mass/volume] in Serum or Plasma Low 2.5-4.5 [facility] Phosphoruson 12-12-2024 Phosphate [Mass/Vol] 2.0 mg/dL Low 2.5-4.5 [facility] Comment on above: Result Comment: PERF ORMED BY: [place] [address] PATHOLOGIST AIRPORT MANAGER MANDY ACUÑA M.D. Performed By: #### C LUCY COLÓN #### [place] [id number] [facility] Arterial Blood Gason 025 ABG Base Excess -3.0 mmol/L Normal -3.0-3.0 [facility] Comment on above: Performed By: #### A BG ####Point of Care testing, ABG Frac Inspired O2 55 % Normal [facility] Comment on above: Performed By: #### A BG ####Point of Care testing, ABG Oxygen Content 6.9 mmol/L Normal 6.6-9.7 [facility] Comment on above: Performed By: #### A BG ####Point of Care testing, ABG Oxygen Saturation 98.1 % Normal 95.0-100.0 [facility] [facility] Comment on above: Performed By: #### A BG ####Point of Care testing, ABG PCO2 40.3 mm[Hg] Normal 35.0-45.0 [facility] Comment on above: Performed By: #### A BG ####Point of Care testing, ABG PEEP 8 cmH20 Normal [facility] Comment on above: Performed By: #### A BG ####Point of Care testing, ABG PH 7.36 Normal 7.35-7.45 [facility] Comment on above: Performed By: #### A BG ####Point of Care testing, ABG PO2 126.0 mm[Hg] Off scale high 80.0-100.0 [facility] Comment on above: Performed By: #### A BG ####Point of Care testing, ABG TV 420 mL Normal [facility] Comment on above: Performed By: #### A BG ####Point of Care testing, Respiratory Critical Normal [facility] Comment on above: Result Comment: Crit ical Value called on: 12/11/2024 at 04:26 PERFORMED BY: [address] [place] [address] PATHOLOGIST AIRPORT MANAGER MANDY ACUÑA M.D. Performed By: #### A BG ####Point of Care testing, Set Respiratory Rate 18 Normal [facility] Comment on above: Performed By: #### A BG ####Point of Care testing, VBG Draw Site Left Radial Normal [facility] Comment on above: Performed By: #### A BG ####Point of Care testing, Ventilator Mode AC Normal [facility] Comment on above: Performed By: #### A BG ####Point of Care testing, Arterial Blood GasOrdered By : Daniel Garza on 12-11-2024 CO2 [Moles/Vol] 23.4 mmol/L Normal 23.0-27.0 [facility] Comment on above: Performed By: #### A BG ####Point of Care testing, HCO3 (Bld) [Moles/Vol] 22.2 mmol/L Low 23.0-29.0 [facility] Comment on above: Performed By: #### A BG ####Point of Care testing, Complete Blood Count Auto Di ffon 12-11-2024 Basophils (Bld) [#/Vol] 0.1 10*3/uL Normal 0.0-0.2 [facility] Comment on above: Result Comment: PERF ORMED BY: [facility] [address] [place] [address] PATHOLOGIST AIRPORT MANAGER MANDY ACUÑA M.D. Performed By: #### C BC, CMP, PHOS, MG ####[place] [id number] [place] [id number] [place] Basophils/100 WBC (Bld) 0.4 % Normal . T [facility] Comment on above: Performed By: #### C BC, CMP, PHOS, MG ####[place] [address] [place] [address] [facility] Eosinophils (Bld) [#/Vol] 0.0 10*3/uL Normal 0.0-0.45 [facility] Comment on above: Performed By: #### C BC, CMP, PHOS, MG ####[address] Eosinophils/100 WBC (Bld) 0.0 % Normal . [facility] Comment on above: Performed By: #### C BC, CMP, PHOS, MG ####[address] Erythrocyte distribution width (RBC) [Ratio] 16.3 % High 11.9-15.3 [facility] Comment on above: Performed By: #### C BC, CMP, PHOS, MG ####[address] Hematocrit (Bld) [Volume fraction] 32.9 % Low 34.0-46.4 [facility] Comment on above: Performed By: #### C BC, CMP, PHOS, MG ####[address] Hemoglobin (Bld) [Mass/Vol] 10.8 g/dL Low 11.8-15.4 [facility] Comment on above: Performed By: #### C BC, CMP, PHOS, MG ####[address] Lymphocytes (Bld) [#/Vol] 0.3 10*3/uL Low 1.00-4.8 [facility] Comment on above: Performed By: #### C BC, CMP, PHOS, MG ####[address] Lymphocytes/100 WBC (Bld) 1.7 % Normal . [facility] Comment on above: Performed By: #### C BC, CMP, PHOS, MG ####[address] MCH (RBC) [Entitic mass] 28.9 pg Normal 24.7-34.3 [facility] Comment on above: Performed By: #### C BC, CMP, PHOS, MG ####[place] [address] MCV (RBC) [Entitic vol] 87.9 fL Normal 80-100 [facility] Comment on above: Performed By: #### C BC, CMP, PHOS, MG ####[address] Mean Corpuscular HGB Conc 32.9 g/dL Normal 32.0-35.0 [facility] Comment on above: Performed By: #### C BC, CMP, PHOS, MG ####[address] Monocytes (Bld) [#/Vol] 0.5 10*3/uL Normal 0.0-0.8 [facility] Comment on above: Performed By: #### C BC, CMP, PHOS, MG ####[address] Monocytes/100 WBC (Bld) 3.4 % Normal . [facility] Comment on above: Performed By: #### C BC, CMP, PHOS, MG ####[address] Neutrophils (Bld) [#/Vol] 14.5 10*3/uL High 1.8-7.7 [facility] Comment on above: Performed By: #### C BC, CMP, PHOS, MG ####[address] Neutrophils/100 WBC (Bld) 94.5 % Normal . [facility] Comment on above: Performed By: #### C BC, CMP, PHOS, MG ####[address] NRBC% 0.0 /100{WBC} Normal 0-0.5 [facility] Comment on above: Performed By: #### C BC, CMP, PHOS, MG ####[address] Platelet mean volume (Bld) [Entitic vol] 7.2 fL Normal 6.3-10.7 [facility] Comment on above: Performed By: #### C BC, CMP, PHOS, MG ####[address] Platelets (Bld) [#/Vol] 244 10*3/uL Normal 150-450 [facility] Comment on above: Performed By: #### C BC, CMP, PHOS, MG ####[address] RBC (Bld) [#/Vol] 3.74 10*6/uL Normal 3.60-5.00 [facility] Comment on above: Performed By: #### C BC, CMP, PHOS, MG ####[address] WBC (Bld) [#/Vol] 15.4 10*3/uL High 3.8-11.6 [facility] Comment on above: Performed By: #### C BC, CMP, PHOS, MG ####[address] Comprehensive Metabolic Pane ana 12-11-2024 Albumin [Mass/Vol] 3.4 g/dL Low 3.5-5.7 [facility] Comment on above: Performed By: #### C BC, CMP, PHOS, MG ####[address] Albumin/Globulin [Mass ratio] 1.6 {ratio} Normal [facility] Comment on above: Performed By: #### C BC, CMP, PHOS, MG ####[address] ALP [Catalytic activity/Vol] 69 U/L Normal 34-104 [facility] Comment on above: Performed By: #### C BC, CMP, PHOS, MG ####[place] [id number] [facility] ALT [Catalytic activity/Vol] 76 U/L High 7-52 [facility] Comment on above: Performed By: #### C BC, CMP, PHOS, MG ####[place] [id number] [place] [id number] [facility] Anion gap [Moles/Vol] 11.6 mmol/L Normal 6.0-15.0 [facility] Comment on above: Performed By: #### C BC, CMP, PHOS, MG ####[place] [id number] [facility] AST [Catalytic activity/Vol] 49 U/L High 13-39 [facility] Comment on above: Performed By: #### C BC, CMP, PHOS, MG ####[address] Bilirubin [Mass/Vol] 0.4 mg/dL Normal 0.3-1.0 [facility] Comment on above: Performed By: #### C BC, CMP, PHOS, MG ####[address] Calcium [Mass/Vol] 8.1 mg/dL Low 8.6-10.3 [facility] Comment on above: Performed By: #### C BC, CMP, PHOS, MG ####[address] Chloride [Moles/Vol] 105 mmol/L Normal 98-107 [facility] Comment on above: Performed By: #### C BC, CMP, PHOS, MG ####[address] CO2 [Moles/Vol] 23.7 mmol/L Normal 21.0-31.0 [facility] Comment on above: Performed By: #### C BC, CMP, PHOS, MG ####[address] Creatinine [Mass/Vol] 0.74 mg/dL Normal 0.60-1.20 [facility] Comment on above: Performed By: #### C BC, CMP, PHOS, MG ####[address] Creatinine Clr Calc Pharmacy 67.88 Normal [facility] Comment on above: Performed By: #### C BC, CMP, PHOS, MG ####[address] GFR/1.73 sq M.predicted MDRD (S/P/Bld) [Vol rate/Area] mL/min/{1.73_m2} Normal [facility] Comment on above: Performed By: #### C BC, CMP, PHOS, MG ####[address] Globulin (S) [Mass/Vol] 2.1 g/dL Normal T [facility] Comment on above: Performed By: #### C BC, CMP, PHOS, MG ####[address] Glucose [Mass/Vol] 134 mg/dL High 70-100 [facility] Comment on above: Result Comment: [facility] Glucose Reference Range is dependent on time and content of last meal. Glucose of more than 200 mg/dL in a nonstressed, ambulatory subject supports the diagnosis of Diabetes Mellitus. ADA recommended reference range Performed By: #### C BC, CMP, PHOS, MG ####[address] Potassium [Moles/Vol] 4.3 mmol/L Normal 3.5-5.1 [facility] Comment on above: Performed By: #### C BC, CMP, PHOS, MG ####[address] Protein [Mass/Vol] 5.5 g/dL Low 6.4-8.9 [facility] Comment on above: Performed By: #### C BC, CMP, PHOS, MG ####[address] Sodium [Moles/Vol] 136 mmol/L Significant change down 136-145 [facility] Comment on above: Performed By: #### C BC, CMP, PHOS, MG ####[address] Urea nitrogen [Mass/Vol] 21 mg/dL Normal 7-25 [facility] Comment on above: Performed By: #### C BC, CMP, PHOS, MG ####[place] [id number] [place] [id number] [facility] Glucose Poct Glucometerson 0 12-11-2024 Glucose [Mass/Vol] 132 mg/dL Normal [facility] Comment on above: Result Comment: [place] Glucose Reference Range is dependent on time and content of last meal. Glucose of more than 200 mg/dL in a nonstressed, ambulatory subject supports the diagnosis of Diabetes Mellitus. PERFORMED BY: [place] [address] PATHOLOGIST AIRPORT MANAGER MANDY ACUÑA M.D. Performed By: #### C MP, PHOS #### [address] [address] [facility] Glucose [Mass/Vol] 123 mg/dL Normal [facility] Comment on above: Result Comment: [place] Glucose Reference Range is dependent on time and content of last meal. Glucose of more than 200 mg/dL in a nonstressed, ambulatory subject supports the diagnosis of Diabetes Mellitus. PERFORMED BY: [place] [address] PATHOLOGIST AIRPORT MANAGER MANDY ACUÑA M.D. Performed By: #### G LULS ####Point of Care testing, Magnesiumon 12-11-2024 Magnesium [Mass/Vol] 2.3 mg/dL Normal 1.9-2.7 [facility] Comment on above: Result Comment: PERF ORMED BY: [place] [address] PATHOLOGIST AIRPORT MANAGER MANDY ACUÑA M.D. Performed By: #### C BC, CMP, PHOS, MG ####[place] [id number] [facility] Magnesium [Mass/volume] in S idris or PlasmaOrdered By: Daniel Garza on 12-11-2024 Magnesium [Mass/Vol] Magnesium [Mass/volume] in Serum or Plasma 1.9-2.7 [facility] No Panel InformationOrdered By: Daniel Garza on 12-11-2024 Arterial Blood Base Excess -3.0 mmol/L -3.0-3.0 [facility] Arterial Blood Oxygen Content 6.9 mmol/L 6.6-9.7 [facility] Arterial Blood Oxygen Saturation 98.1 % 95.0-100.0 [facility] Arterial Blood Partial Pressure CO2 40.3 mm[Hg] 35.0-45.0 [facility] Arterial Blood Partial Pressure O2 126.0 mm[Hg] Critically high 80.0-100.0 [facility] Arterial Blood pH 7.36 7.35-7.45 [facility] Blood Gas Critical Value See comment [facility] Comment on above: Critical Value hope d on: 12/11/2024 at 04:26 Blood Gas PEEP 8 cmH2O [facility] Blood Gas Sample Site Left radial Fi [facility] Blood Gas Set Respiration Rate 18 [facility] Blood Gas Tidal Volume [address] [facility] Blood Gas Ventilator Mode Ac [facility] FiO2 55 % [facility] Phosphoruson 12-11-2024 Phosphate [Mass/Vol] 2.6 mg/dL Normal 2.5-4.5 [facility] Comment on above: Performed By: #### C BC, CMP, PHOS, MG ####[facility] [id number] [place] [id number] [facility] Triglyceride [Mass/volume] i n Serum or PlasmaOrdered By: Soco Beasley on 12-11-2024 Triglyceride [Mass/Vol] Triglyceride [Mass/volume] in Serum or Plasma High 35-149 [facility] Comment on above: TRIG ATP III CLASSIF ICATIONTRIG less than 150 mg/dL NormalTRIG 150-199 mg/dL Borderline highTRIG 200-500 mg/dL High TRIG greater than 500 mg/dL Very highStandard traceable to the Center for Disease Conrtrol and Prevention (CDC) test method. Triglycerideson 12-11-2024 Triglyceride [Mass/Vol] 158 mg/dL High 35-149 [facility] Comment on above: Result Comment: TRIG ATP III CLASSIFICATION TRIG less than 150 mg/dL Normal TRIG 150-199 mg/dL Borderline high TRIG 200-500 mg/dL High TRIG greater than 500 mg/dL Very high Standard traceable to the Center for Disease Conrtrol and Prevention (CDC) test method. PERFORMED BY: [place] [address] PATHOLOGIST AIRPORT MANAGER MANDY ACUÑA M.D. Performed By: #### C ELDON, LUCY #### [address] X-ray reportOrdered By: Roman Ugalde on 12-11-2024 Study report [facility] [place] [address] XRay Report Signed Patient: Julian Montaño MR#: [id number] : 1955 Acct:[id number] Age/Sex: 69 / F ADM Date: 5 Loc: Room: [address] [place] [address] Type: ADM IN Attending Dr: Daniel Garza [...] Ugalde Jr., D.OLakeisha12/11/2024 8:33 AM Dictation Location: [place] [address] Transcribed By: [facility] 12/11/24832 Dictated By: Ryan Ugalde Jr, DO 12/11/2432 Signed By: 12/11/24 0833 [facility] XR chest 1V portableon 12-11 XR chest 1V portable [facility] [address] [place] [id number] XRay Report Signed Patient: Julian Montaño MR#: [id number] 27 : 1955 Acct:[id number] Age/Sex: 69 / F ADM Date: 12/09/24 Loc: Room: [address] [place] [address] Type: ADM IN Attending Dr: Daniel Garza [...] Ugalde Jr., D.O.12/11/2024 8:33 AM Dictation Location: [place] [address] Transcribed By: [facility] 12/11/24 0833 Dictated By: Ryan Ugalde Jr, DO 12/11/24 0832 Signed By: 12/11/24 0833 Normal [facility] Amphetamine Screen Ql (U)Ord ered By: Soco Beasley on 12-10-2024 Amphetamines Ql (U) Amphetamines screen Negativ e [facility] Arterial Blood Gason 025 ABG Base Excess -2.9 mmol/L Normal -3.0-3.0 [facility] Comment on above: Performed By: #### A BG ####Point of Care testing, ABG Frac Inspired O2 50 % Normal [facility] Comment on above: Performed By: #### A BG ####Point of Care testing, ABG Oxygen Content 6.8 mmol/L Normal 6.6-9.7 [facility] Comment on above: Performed By: #### A BG ####Point of Care testing, ABG Oxygen Saturation 97.3 % Normal 95.0-100.0 [facility] Comment on above: Performed By: #### A BG ####Point of Care testing, ABG PCO2 42.7 mm[Hg] Normal 35.0-45.0 [facility] Comment on above: Performed By: #### A BG ####Point of Care testing, ABG PEEP 5 cmH20 Normal [facility] Comment on above: Performed By: #### A BG ####Point of Care testing, ABG PH 7.34 Low 7.35-7.45 [facility] Comment on above: Performed By: #### A BG ####Point of Care testing, ABG PO2 99.2 mm[Hg] Normal 80.0-100.0 [facility] Comment on above: Performed By: #### A BG ####Point of Care testing, ABG TV 450 mL Normal [facility] Comment on above: Performed By: #### A BG ####Point of Care testing, CO2 [Moles/Vol] 24.0 mmol/L Normal 23.0-27.0 [facility] Comment on above: Performed By: #### A BG ####Point of Care testing, HCO3 (Bld) [Moles/Vol] 22.7 mmol/L Low 23.0-29.0 [facility] Comment on above: Performed By: #### A BG ####Point of Care testing, Respiratory Critical Normal [facility] Comment on above: Result Comment: Crit ical Value called on: 12/10/2024 at 06:05 PERFORMED BY: [place] [address] [place] [address] PATHOLOGIST AIRPORT MANAGER MANDY ACUÑA M.D. Performed By: #### A BG ####Point of Care testing, Set Respiratory Rate 18 Normal [facility] Comment on above: Performed By: #### A BG ####Point of Care testing, VBG Draw Site Left Radial Normal [facility] Comment on above: Performed By: #### A BG ####Point of Care testing, Ventilator Mode AC Normal [facility] Comment on above: Performed By: #### A BG ####Point of Care testing, ABG Base Excess -4.9 mmol/L Low -3.0-3.0 [facility] Comment on above: Performed By: #### C MP, PHOS #### [address] ABG Frac Inspired O2 60 % Normal [facility] Comment on above: Performed By: #### C MP, PHOS #### [address] ABG Oxygen Content 6.8 mmol/L Normal 6.6-9.7 [facility] Comment on above: Performed By: #### C MP, PHOS #### [address] ABG Oxygen Saturation 98.2 % Normal 95.0-100.0 [facility] Comment on above: Performed By: #### C MP, PHOS #### [address] ABG PCO2 47.5 mm[Hg] High 35.0-45.0 [facility] Comment on above: Performed By: #### C MP, PHOS #### [address] ABG PEEP 5 cmH20 Normal [facility] Comment on above: Performed By: #### C MP, PHOS #### [address] ABG PH 7.28 Low 7.35-7.45 [facility] Comment on above: Performed By: #### C MP, PHOS #### [address] ABG PO2 140.9 mm[Hg] Off scale high 80.0-100.0 [facility] Comment on above: Performed By: #### C MP, PHOS #### [address] ABG TV 500 mL Normal [facility] Comment on above: Performed By: #### C MP, PHOS #### [address] CO2 [Moles/Vol] 23.3 mmol/L Normal 23.0-27.0 [facility] Comment on above: Performed By: #### C MP, PHOS #### [address] HCO3 (Bld) [Moles/Vol] 21.8 mmol/L Low 23.0-29.0 [facility] Comment on above: Performed By: #### C MP, PHOS #### [address] Respiratory Critical Normal [facility] Comment on above: Result Comment: Crit ical Value called on: 12/10/2024 at 00:12 PERFORMED BY: [place] [address] PATHOLOGIST AIRPORT MANAGER MANDY ACUÑA M.D. Performed By: #### C MP, PHOS #### [address] Set Respiratory Rate 18 Normal [facility] Comment on above: Performed By: #### C MP, PHOS #### [address] VBG Draw Site Right Radial Normal [facility] Comment on above: Performed By: #### C MP, PHOS #### [address] Ventilator Mode AC Normal [facility] Comment on above: Performed By: #### C MP, PHOS #### [address] Barbiturates [Presence] in U rine by Screen methodOrdered By: Soco Beasley on 12-10-2024 Barbiturates Screen Ql (U) Barbiturates [Presence] in Urine by Screen method Negative [facility] Benzodiazepines Screen Ql (U )Ordered By: Soco Beasley on 12-10-2024 Benzodiazepines Ql (U) Benzodiazepines [Presence] in Urine by Screen method High Negative [facility] Benzoylecgonine [Presence] i n Urine by Screen methodOrdered By: Soco Beasley on 12-10-2024 Benzoylecgonine Screen Ql (U) Benzoylecgonine [Presence] in Urine by Screen method Negative [facility] Cannabinoids [Presence] in U rine by Screen methodOrdered By: Soco Beasley on 12-10-2024 Cannabinoids Screen Ql (U) Cannabinoids [Presence] in Urine by Screen method Negative [facility] Comment on above: These are unconfirme d results and should not be used for legal purposes. Drug Cut-Off Concentration: AMPH 1000 ng/mL MICHAEL 200 ng/mL JAVAN 200 ng/mL COCM 300 ng/mL OP 300 ng/mL PCP 25 ng/mL THC 20 ng/mL Complete Blood Count Auto Di ffon 12-10-2024 Basophils (Bld) [#/Vol] 0.1 10*3/uL Normal 0.0-0.2 [facility] Comment on above: Result Comment: PERF ORMED BY: [facility] [address] [place] [address] PATHOLOGIST AIRPORT MANAGER MANDY ACUÑA M.D. Performed By: #### C BC, CMP, MG ####[address] Basophils/100 WBC (Bld) 0.5 % Normal . T abilio [facility] Comment on above: Performed By: #### C BC, CMP, MG ####[address] Eosinophils (Bld) [#/Vol] 0.0 10*3/uL Normal 0.0-0.45 [facility] Comment on above: Performed By: #### C BC, CMP, MG ####[address] Eosinophils/100 WBC (Bld) 0.0 % Normal . [facility] Comment on above: Performed By: #### C BC, CMP, MG ####[address] Erythrocyte distribution width (RBC) [Ratio] 15.5 % High 11.9-15.3 [facility] Comment on above: Performed By: #### C BC CMP, MG ####[address] Hematocrit (Bld) [Volume fraction] 31.0 % Low 34.0-46.4 [facility] Comment on above: Performed By: #### C BC, CMP, MG ####[address] Hemoglobin (Bld) [Mass/Vol] 10.1 g/dL Low 11.8-15.4 [facility] Comment on above: Performed By: #### C BC, CMP, MG ####[address] Lymphocytes (Bld) [#/Vol] 0.2 10*3/uL Low 1.00-4.8 [facility] Comment on above: Performed By: #### C BC, CMP, MG ####[address] Lymphocytes/100 WBC (Bld) 1.2 % Normal . [facility] Comment on above: Performed By: #### C BC CMP, MG ####[address] MCH (RBC) [Entitic mass] 28.4 pg Normal 24.7-34.3 [facility] Comment on above: Performed By: #### C BC, CMP, MG ####[address] MCV (RBC) [Entitic vol] 86.7 fL Normal 80-100 T [facility] Comment on above: Performed By: #### C BC, CMP, MG ####[address] Mean Corpuscular HGB Conc 32.7 g/dL Normal 32.0-35.0 [facility] Comment on above: Performed By: #### C BC, CMP, MG ####[address] Monocytes (Bld) [#/Vol] 0.5 10*3/uL Normal 0.0-0.8 [facility] Comment on above: Performed By: #### C BC, CMP, MG ####[address] Monocytes/100 WBC (Bld) 3.1 % Normal . T [facility] Comment on above: Performed By: #### C BC, CMP, MG ####[address] Neutrophils (Bld) [#/Vol] 14.4 10*3/uL High 1.8-7.7 [facility] Comment on above: Performed By: #### C BC, CMP, MG ####[address] Neutrophils/100 WBC (Bld) 95.2 % Normal . [facility] Comment on above: Performed By: #### C BC, CMP, MG ####[address] NRBC% 0.0 /100{WBC} Normal 0-0.5 [facility] Comment on above: Performed By: #### C BC, CMP, MG ####[address] Platelet mean volume (Bld) [Entitic vol] 7.0 fL Normal 6.3-10.7 [facility] Comment on above: Performed By: #### C BC, CMP, MG ####[address] Platelets (Bld) [#/Vol] 236 10*3/uL Normal 150-450 [facility] Comment on above: Performed By: #### C BC, CMP, MG ####[address] RBC (Bld) [#/Vol] 3.57 10*6/uL Low 3.60-5.00 [facility] Comment on above: Performed By: #### C BC, CMP, MG ####[address] [address] [facility] WBC (Bld) [#/Vol] 15.2 10*3/uL High 3.8-11.6 [facility] Comment on above: Performed By: #### C BC, CMP, MG ####[address] [address] [facility] Comprehensive Metabolic Pane ana 12-10-2024 Albumin [Mass/Vol] 3.4 g/dL Low 3.5-5.7 [facility] Comment on above: Performed By: #### C BC, CMP, MG ####[place] [id number] [facility] Albumin/Globulin [Mass ratio] 1.5 {ratio} Normal [facility] Comment on above: Performed By: #### C BC, CMP, MG ####[place] [id number] [facility] ALP [Catalytic activity/Vol] 69 U/L Normal 34-104 [facility] Comment on above: Performed By: #### C BC, CMP, MG ####[place] [id number] [facility] ALT [Catalytic activity/Vol] 71 U/L High 7-52 [facility] Comment on above: Performed By: #### C BC, CMP, MG ####[place] [id number] [facility] Anion gap [Moles/Vol] 10.3 mmol/L Normal 6.0-15.0 [facility] Comment on above: Performed By: #### C BC, CMP, MG ####[place] [id number] [facility] AST [Catalytic activity/Vol] 50 U/L High 13-39 [facility] Comment on above: Performed By: #### C BC, CMP, MG ####[place] [id number] [facility] Bilirubin [Mass/Vol] 0.4 mg/dL Normal 0.3-1.0 [facility] Comment on above: Performed By: #### C BC, CMP, MG ####[address] Calcium [Mass/Vol] 7.0 mg/dL Low 8.6-10.3 [facility] Comment on above: Performed By: #### C BC, CMP, MG ####[address] Chloride [Moles/Vol] 101 mmol/L Normal 98-107 [facility] Comment on above: Performed By: #### C BC, CMP, MG ####[address] CO2 [Moles/Vol] 22.0 mmol/L Normal 21.0-31.0 [facility] Comment on above: Performed By: #### C BC, CMP, MG ####[address] Creatinine [Mass/Vol] 0.64 mg/dL Normal 0.60-1.20 [facility] Comment on above: Performed By: #### C BC, CMP, MG ####[place] [address] [place] Creatinine Clr Calc Pharmacy 69.14 Normal [facility] Comment on above: Performed By: #### C BC, CMP, MG ####[place] [id number] [facility] GFR/1.73 sq M.predicted MDRD (S/P/Bld) [Vol rate/Area] mL/min/{1.73_m2} Normal [facility] Comment on above: Performed By: #### C BC, CMP, MG ####[address] Globulin (S) [Mass/Vol] 2.2 g/dL Normal [facility] Comment on above: Performed By: #### C BC, CMP, MG ####[address] Glucose [Mass/Vol] 151 mg/dL High 70-100 [facility] Comment on above: Result Comment: [place] Glucose Reference Range is dependent on time and content of last meal. Glucose of more than 200 mg/dL in a nonstressed, ambulatory subject supports the diagnosis of Diabetes Mellitus. ADA recommended reference range Performed By: #### C BC, CMP, MG ####[place] [id number] [place] [id number] [facility] Potassium [Moles/Vol] 3.3 mmol/L Low 3.5-5.1 [facility] Comment on above: Performed By: #### C BC, CMP, MG ####[place] [id number] [place] [id number] [facility] Protein [Mass/Vol] 5.6 g/dL Low 6.4-8.9 [facility] Comment on above: Performed By: #### C BC, CMP, MG ####[place] [id number] [facility] Sodium [Moles/Vol] 130 mmol/L Low 136-145 [facility] Comment on above: Performed By: #### C BC, CMP, MG ####[place] [id number] [facility] Urea nitrogen [Mass/Vol] 14 mg/dL Normal 7-25 [facility] Comment on above: Performed By: #### C BC, CMP, MG ####[address] [address] [facility] Drug Screen,Urineon 12-10-19 25 Amphetamine Screen,Urine Negative Normal Negative [facility] Comment on above: Performed By: #### U RDS ####[address] [address] [facility] Barbiturate Screen,Urine Negative Normal Negative [facility] Comment on above: Performed By: #### U RDS ####[address] [address] [facility] Benzodiazepines Screen,Urine Positive High Negative [facility] Comment on above: Performed By: #### U RDS ####[place] [phone] [place] Cannabinoid Screen,Urine Negative Normal Negative [facility] Comment on above: Result Comment: Thes e are unconfirmed results and should not be used for legal purposes. Drug Cut-Off Concentration: AMPH 1000 ng/mL MICHAEL 200 ng/mL JAVAN 200 ng/mL COCM 300 ng/mL OP 300 ng/mL PCP 25 ng/mL THC 20 ng/mL PERFORMED BY: [place] [address] PATHOLOGIST AIRPORT MANAGER MANDY ACUÑA M.D. Performed By: #### U RDS ####[address] Cocaine Screen,Urine Negative Normal Negative [facility] Comment on above: Performed By: #### U RDS ####[address] Opiate Screen,Urine Positive High Negative [facility] Comment on above: Performed By: #### U RDS ####[address] Phencyclidine Screen,Urine Negative Normal Negative [facility] Comment on above: Performed By: #### U RDS ####[address] [facility] echo transthoracicon [facility] echo transthoracic [facility] [place] [address] Echocardiogram Signed Patient: Julian Montaño MR#: [id number] 27 : 1955 Acct:[id number] Age/Sex: 69 / F ADM Date: 12/09/24 Loc: Room: [address] [place] [address] Type: ADM IN Attending Dr: Daniel Garza [...] Gildardo Pastor MD 12/10/24 1712 Normal [facility] Glucose Poct Glucometerson 0 12-10-2024 Glucose [Mass/Vol] 135 mg/dL Normal [facility] Comment on above: Result Comment: [place] om Glucose Reference Range is dependent on time and content of last meal. Glucose of more than 200 mg/dL in a nonstressed, ambulatory subject supports the diagnosis of Diabetes Mellitus. PERFORMED BY: [place] [phone] PATHOLOGIST AIRPORT MANAGER MANDY ACUÑA M.D. Performed By: #### C MP, PHOS #### [facility] [address] [place] [address] Magnesiumon 12-10-2024 Magnesium [Mass/Vol] 1.7 mg/dL Low 1.9-2.7 [facility] Comment on above: Result Comment: PERF ORMED BY: [place] [phone] PATHOLOGIST AIRPORT MANAGER MANDY ACUÑA M.D. Performed By: #### C BC, CMP, MG ####[facility] [id number] [place] [address] Opiates [Presence] in Urine by Screen methodOrdered By: Soco Beasley on 12-10-2024 Opiates Screen Ql (U) Opiates [Presence] in Urine by Screen method High Negative [facility] Phencyclidine Screen Ql (U)O rdered By: Soco Beasley on 12-10-2024 Phencyclidine Ql (U) Phencyclidine [Presence] in Urine by Screen method Negative [facility] Troponin I High Sensitivityo n 12-10-2024 Troponin I High Sensitivity 1309 Off scale high 0-15 [facility] Comment on above: Result Comment: Crit ical Result : Called to and read back by: VIOLA KAY at: 12/10/2024 07:21:46 by:CELESTINA The Troponin units of report have been changed to meet the Chest Pain Accreditation requirement, element EC5.M1l2. Troponin units are changed from pg/ml to ng/L. Also, the decimal is removed and results are in whole numbers. PERFORMED BY: [place] [address] PATHOLOGIST AIRPORT MANAGER MANDY ACUÑA M.D. Performed By: #### C ELDON, LUCY #### [address] Troponin I.cardiac [Mass/vol ume] in Serum or Plasma by Detection limit <= 0.01 ng/Ordered By: Soco Beasley on 12-10-2024 Troponin I.cardiac DL <= 0.01 ng/mL [Mass/Vol] Troponin I.cardiac [Mass/volume] in Serum or Plasma by Detection limit <= 0.01 ng/ Critically high 0-15 [facility] Comment on above: Critical Result : Ca lled to and read back by: VIOLA KAY at: 12/10/2024 07:21:46 by:CELESTINAThe Troponin units of report have been changed to meet the Chest Pain Accreditation requirement, element EC5.M1l2. Troponin units are changed from pg/ml to ng/L. Also, the decimal is removed and results are in whole numbers. X-ray reportOrdered By: Roman Ugalde on 12-10-2024 Study report [facility] Main [place] [address] [place] [address] XRay Report Signed Patient: Julian Montaño MR#: [id number] : 1955 Acct:[id number] Age/Sex: 69 / F ADM Date: 5 Loc: Room: [address] [place] [address] Type: ADM IN Attending Dr: Soco Beasley MD Copies to: Soco Beasley MD~ Ordering Provider: Soco Beasley MD Date of Service: 12/10/24 XR/XR chest 1V portable: Intubated SINGLE VIEW CHEST CLINICAL HISTORY: Transfer from [place]. Following responsive. COMPARISON: Chest 12/09/2024 FINDINGS: Enteric tube tip below the level of the diaphragm. ET tube in satisfactory position. Heart appears normal in size. Bibasilar atelectasis/interstit ial changes. No consolidation pneumothorax pleural effusion or free air. XR/XR chest 1V portable IMPRESSION: TUBES IN SATISFACTORY POSITIONS. BIBASILAR ATELECTASIS/INTERSTIT IAL CHANGES. Impression dictated by: Rocky Corral Jr..O.12/10/2024 9:13 AM Dictation Location: RADIO-PC-23 Transcribed By: ANDREW 12/10/24 0913 Dictated By: Ryan Ugalde Jr, DO 12/10/2412 Signed By: 12/10/24912 [facility] Study report [facility] [place] [address] XRay Report Signed Patient: Julian Montaño MR#: [id number] : 1955 Acct:[id number] Age/Sex: 69 / F ADM Date: 5 Loc: Room: [address] [place] [address] Type: ADM IN Attending Dr: Soco Beasley [...] LOCATION OF THE STOMACH. Impression dictated by: Rocky Corral Jr..OLakeisha12/10/2024 8:33 AM Dictation Location: [facility]IO-PC-23 Transcribed By: PWS 12/10/24 0833 Dictated By: Ryan Ugalde Jr, 12/10/24830 Signed By: 12/10/2433 [facility] X-ray reportOrdered By: Hima [place] on 12-10-2024 Study report [facility] Main [address] [address] XRay Report Signed Patient: Julian Montaño MR#: [id number] : 1955 Acct:[id number] Age/Sex: 69 / F ADM Date: Loc: 4C Room: [address] [place] [address] Type: ADM IN Attending Dr: Soco Beasley [...] Torsten Toledo M.D.12/10/2024 8:31 AM Dictation Location: [place] [address] Transcribed By: [facility] 12/10/24830 Dictated By: Torsten Toledo MD 12/10/24828 Signed By: 12/10/2431 [facility] Work Phone: XR abdomen 1Von 12-10-2024 XR abdomen 1V [facility] Main [address] [address] XRay Report Signed Patient: Julian Montaño MR#: [id number] [birth year] : 1955 Acct:[id number] Age/Sex: 69 / F ADM Date: 12/09/24 Loc: 4C Room: [address] [place] [address] Type: ADM IN Attending Dr: Soco Beasley [...] Ugalde Jr., D.O.12/10/2024 8:33 AM Dictation Location: [place] [address] Transcribed By: [facility] 12/10/24 0833 Dictated By: Ryan Ugalde Jr, DO 12/10/24 0831 Signed By: 12/10/24 0833 Normal [facility] XR chest 1V portableon 12-10 XR chest 1V portable [facility] [place] [address] XRay Report Signed Patient: Julian Montaño MR#: [id number] [birth year] : 1955 Acct:[id number] Age/Sex: 69 / F ADM Date: 12/09/24 Loc: Room: [address] [place] [address] Type: ADM IN Attending Dr: Soco Beasley MD Copies to: Soco Beasley MD Ordering Provider: Soco Beasley MD Date of Service: 12/10/24 XR/XR chest 1V portable: Intubated SINGLE VIEW CHEST CLINICAL HISTORY: Transfer from [place]. Following responsive. COMPARISON: Chest 12/09/2024 FINDINGS: Enteric [...] 9:13 AM Dictation Location: RADIO-PC-23 Transcribed By: [facility] 12/10/24912 Dictated By: Ryan Ugalde Jr, DO 12/10/24911 Signed By: 12/10/24912 Normal [facility] XR chest 1V portable [facility] Main [address] [address] XRay Report Signed Patient: Julian Montaño MR#: [id number] [birth year] : 1955 Acct:[id number] Age/Sex: 69 / F ADM Date: 12/09/24 Loc: Room: [address] [place] [address] Type: ADM IN Attending Dr: Soco Beasley [...] Torsten Toledo M.D.12/10/2024 8:31 AM Dictation Location: [facility] Transcribed By: [facility] 12/10/24 0831 Dictated By: Torsten Toledo MD 12/10/2429 Signed By: 12/10/24 08 Normal [facility] Aerobic Cultureon 12-09-2024 Aerobic Culture Light Normal Respiratory Chase 2 Days Gram Stain Result 3+ White Blood Cells Rare Epithelial Cells 4+ Gram Positive Cocci in Chains AND PAIRS PERFORMED BY: [place] [id number] PATHOLOGIST AIRPORT MANAGER MANDY ACUÑA M.D. Normal [facility] Comment on above: Performed By: #### C LAMAR COLÓNS #### [facility] [address] Aerobic cultureOrdered By: James Beasley on 12-09-2024 Bacteria identified Aer cx Nom (Unsp spec) Aerobic culture [facility] Anisocytosis LM Ql (Bld)Orde red By: Soco Beasley on 12-09-2024 Anisocytosis Ql (Bld) Anisocytosis [Presence] in Blood by Light microscopy [facility] Arterial Blood Gason 025 ABG Base Excess -4.7 mmol/L Low -3.0-3.0 [facility] Comment on above: Performed By: #### A BG ####Point of Care testing, ABG Frac Inspired O2 40 % Normal [facility] Comment on above: Performed By: #### A BG ####Point of Care testing, ABG Oxygen Content 6.5 mmol/L Low 6.6-9.7 [facility] Comment on above: Performed By: #### A BG ####Point of Care testing, ABG Oxygen Saturation 90.5 % Low 95.0-100.0 [facility] Comment on above: Performed By: #### A BG ####Point of Care testing, ABG PCO2 57.0 mm[Hg] Off scale high 35.0-45.0 [facility] Comment on above: Performed By: #### A BG ####Point of Care testing, ABG PEEP 5 cmH20 Normal [facility] Comment on above: Performed By: #### A BG ####Point of Care testing, ABG PH 7.23 Low 7.35-7.45 [facility] Comment on above: Performed By: #### A BG ####Point of Care testing, ABG PO2 66.7 mm[Hg] Low 80.0-100.0 [facility] Comment on above: Performed By: #### A BG ####Point of Care testing, ABG TV 450 mL Normal [facility] Comment on above: Performed By: #### A BG ####Point of Care testing, CO2 [Moles/Vol] 25.1 mmol/L Normal 23.0-27.0 [facility] Comment on above: Performed By: #### A BG ####Point of Care testing, HCO3 (Bld) [Moles/Vol] 23.3 mmol/L Normal 23.0-29.0 [facility] Comment on above: Performed By: #### A BG ####Point of Care testing, Respiratory Critical Normal [facility] Comment on above: Result Comment: Crit ical Value called on: 12/09/2024 at 21:27 PERFORMED BY: [place] [address] PATHOLOGIST AIRPORT MANAGER MANDY ACUÑA M.D. Performed By: #### A BG ####Point of Care testing, Set Respiratory Rate 14 Normal [facility] Comment on above: Performed By: #### A BG ####Point of Care testing, VBG Draw Site Left Radial Normal [facility] Comment on above: Performed By: #### A BG ####Point of Care testing, Ventilator Mode AC Normal [facility] Comment on above: Performed By: #### A BG ####Point of Care testing, Band form neutrophils/100 WB C Manual cnt (Bld)Ordered By: Soco Beasley on 12-09-2024 Band form neutrophils/100 WBC (Bld) Peripheral white blood cell differential % bands, microscopic exam High 0-5 [facility] Blood Cultureon 12-09-2024 Bacteria identified Cx Nom (Bld) NO GROWTH 5 DAYS PERFORMED BY: [place] [address] PATHOLOGIST AIRPORT MANAGER MANDY ACUÑA M.D. Normal [facility] Comment on above: Performed By: #### C LUCY COLÓN #### [address] Bacteria identified Cx Nom (Bld) NO GROWTH 5 DAYS PERFORMED BY: [address] [address] PATHOLOGIST AIRPORT MANAGER MANDY ACUÑA M.D. Normal [facility] Comment on above: Performed By: #### C ELDON, PHOS #### [address] [place] cells [Presence] in Blo od by Light microscopyOrdered By: Soco Beasley on 12-09-2024 [place] cells LM Ql (Bld) [place] cells [Prese nce] in Blood by Light microscopy [facility] Comprehensive Metabolic Pane ana 12-09-2024 Albumin [Mass/Vol] 3.6 g/dL Normal 3.5-5.7 [facility] Comment on above: Performed By: #### C EDLON, PHOS #### [address] Albumin/Globulin [Mass ratio] 1.6 {ratio} Normal [facility] Comment on above: Performed By: #### C ELDON, PHOS #### [address] ALP [Catalytic activity/Vol] 78 U/L Normal 34-104 [facility] Comment on above: Result Comment: PERF ORMED BY: [place] [address] PATHOLOGIST AIRPORT MANAGER MANDY ACUÑA M.D. Performed By: #### C MP, PHOS #### [place] [address] [place] ALT [Catalytic activity/Vol] 82 U/L High 7-52 [facility] Comment on above: Performed By: #### C MP, PHOS #### [place] [address] [place] Anion gap [Moles/Vol] 8.6 mmol/L Normal 6.0-15.0 [facility] Comment on above: Performed By: #### C MP, PHOS #### [place] [address] [place] AST [Catalytic activity/Vol] 61 U/L High 13-39 [facility] Comment on above: Performed By: #### C MP, PHOS #### [facility] [address] [place] [address] [place] Bilirubin [Mass/Vol] 0.4 mg/dL Normal 0.3-1.0 [facility] Comment on above: Performed By: #### C MP, PHOS #### [facility] [address] [place] [address] [place] Calcium [Mass/Vol] 7.1 mg/dL Low 8.6-10.3 [facility] Comment on above: Performed By: #### C MP, PHOS #### [facility] [address] [place] [address] [place] Chloride [Moles/Vol] 97 mmol/L Low 98-107 [facility] Comment on above: Performed By: #### C MP, PHOS #### [facility] [address] [place] [address] [place] CO2 [Moles/Vol] 24.6 mmol/L Normal 21.0-31.0 [facility] Comment on above: Performed By: #### C MP, PHOS #### [facility] [address] [place] [address] [place] Creatinine [Mass/Vol] 0.68 mg/dL Normal 0.60-1.20 [facility] Comment on above: Performed By: #### C MP, PHOS #### [facility] [address] [place] [address] [place] GFR/1.73 sq M.predicted MDRD (S/P/Bld) [Vol rate/Area] mL/min/{1.73_m2} Normal [facility] Comment on above: Performed By: #### C MP, PHOS #### [facility] [address] [place] [address] [place] Globulin (S) [Mass/Vol] 2.3 g/dL Normal T [facility] Comment on above: Performed By: #### C MP, PHOS #### [facility] [address] [place] [address] [place] Glucose [Mass/Vol] 186 mg/dL High 70-100 [facility] Comment on above: Result Comment: [facility] Glucose Reference Range is dependent on time and content of last meal. Glucose of more than 200 mg/dL in a nonstressed, ambulatory subject supports the diagnosis of Diabetes Mellitus. ADA recommended reference range Performed By: #### C MP, PHOS #### [address] Potassium [Moles/Vol] 3.2 mmol/L Low 3.5-5.1 [facility] Comment on above: Performed By: #### C MP, PHOS #### [address] Protein [Mass/Vol] 5.9 g/dL Low 6.4-8.9 [facility] Comment on above: Performed By: #### C MP, PHOS #### [address] Sodium [Moles/Vol] 127 mmol/L Low 136-145 [facility] Comment on above: Performed By: #### C MP, PHOS #### [address] Urea nitrogen [Mass/Vol] 16 mg/dL Normal 7-25 [facility] Comment on above: Performed By: #### C MP, PHOS #### [address] Diff and CBCon 12-09-2024 Anisocytosis Ql (Bld) Slight Normal [facility] Comment on above: Performed By: #### C MP, PHOS #### [address] Band form neutrophils/100 WBC (Bld) 27 % High 0-5 [facility] Comment on above: Performed By: #### C MP, PHOS #### [address] Crenated RBC Slight Normal [facility] Comment on above: Performed By: #### C MP, PHOS #### [address] Erythrocyte distribution width (RBC) [Ratio] 15.4 % High 11.9-15.3 [facility] Comment on above: Performed By: #### C MP, PHOS #### [address] Hematocrit (Bld) [Volume fraction] 33.0 % Low 34.0-46.4 [facility] Comment on above: Performed By: #### C MP, PHOS #### [address] Hemoglobin (Bld) [Mass/Vol] 10.7 g/dL Low 11.8-15.4 [facility] Comment on above: Performed By: #### C MP, PHOS #### [address] Lymphocytes/100 WBC (Bld) 0 % Low 18-42 [facility] Comment on above: Performed By: #### C MP, PHOS #### [address] MCH (RBC) [Entitic mass] 28.1 pg Normal 24.7-34.3 [facility] Comment on above: Performed By: #### C MP, PHOS #### [address] MCV (RBC) [Entitic vol] 87.0 fL Normal 80-100 [facility] Comment on above: Performed By: #### C MP, PHOS #### [address] Mean Corpuscular HGB Conc 32.3 g/dL Normal 32.0-35.0 [facility] Comment on above: Performed By: #### C MP, PHOS #### [address] Microcytosis Slight Normal [facility] Comment on above: Performed By: #### C MP, PHOS #### [address] Monocytes/100 WBC (Bld) 2 % Normal 2-11 [facility] Comment on above: Performed By: #### C MP, PHOS #### [address] Platelet Estimate Normal Normal Normal [facility] Comment on above: Performed By: #### C MP, PHOS #### [address] Platelet mean volume (Bld) [Entitic vol] 6.9 fL Normal 6.3-10.7 [facility] Comment on above: Result Comment: PERF ORMED BY: [place] [address] PATHOLOGIST AIRPORT MANAGER MANDY ACUÑA M.D. Performed By: #### C MP, PHOS #### [address] Platelet Morphology Normal Normal Normal [facility] Comment on above: Result Comment: PERF ORMED BY: [place] [address] PATHOLOGIST AIRPORT MANAGER MANDY ACUÑA M.D. Performed By: #### C MP, PHOS #### [address] Platelets (Bld) [#/Vol] 236 10*3/uL Normal 150-450 [facility] Comment on above: Performed By: #### C MP, PHOS #### [address] Poikilocytosis Slight Normal [facility] Comment on above: Performed By: #### C MP, PHOS #### [address] Polychromasia Slight Normal [facility] Comment on above: Performed By: #### C MP, PHOS #### [address] RBC (Bld) [#/Vol] 3.80 10*6/uL Normal 3.60-5.00 [facility] Comment on above: Performed By: #### C MP, PHOS #### [address] [place] [address] [place] Segmented neutrophils/100 WBC (Bld) 71 % High 50-70 [facility] Comment on above: Performed By: #### C LEDON PHOS #### [address] WBC (Bld) [#/Vol] 15.9 10*3/uL High 3.8-11.6 [facility] Comment on above: Performed By: #### C ELDON, PHOS #### [address] ECG 12 lead ECGon 12-09-2024 ECG 12 lead ECG [facility] [place] [address] [place] [address] Electrocardiograph Report Signed Patient: Julian Montaño MR#: [id number] 27 : 1955 Acct:[id number] Age/Sex: 69 / F ADM Date: 12/09/24 Loc: Room: [address] [place] [address] Type: ADM IN Attending Dr: Daniel Garza [...] block Abnormal ECG Confirmed by Krissy Cortez ([id number]) on 12/12/2024 12:01:02 AM Referred By: Electronically Signed By: Krissy Cortez Transcribed By: MUS Signed By Krissy Cortez MD 5 0001 Normal [facility] Erythrocyte morphology findi ng [Identifier] in BloodOrdered By: Soco Beasley on 12-09-2024 RBC morphology finding Nom (Bld) RBC morphology [facility] Gram Stainon 12-09-2024 Microscopic observation Gram stain Nom (Unsp spec) Gram Stain Result 3+ White Blood Cells Rare Epithelial Cells 4+ Gram Positive Cocci in Chains AND PAIRS PERFORMED BY: [place] [id number] PATHOLOGIST AIRPORT MANAGER MANDY ACUÑA M.D. Normal [facility] Comment on above: Performed By: #### C ELDON, PHOS #### [facility] [address] [id number] [facility] Gram stain microscopyOrdered By: Soco Beasley on 12-09-2024 Microscopic observation Gram stain Nom (Unsp spec) Gram stain microscopy [facility] Laboratory - Microbiology an d Antimicrobial susceptibilityOrdered By: Soco Beasley on 12-09-2024 Bacteria identified Cx Nom (Bld) NO GROWTH 5 DAYS [facility] Bacteria identified Cx Nom (Bld) NO GROWTH 5 DAYS [facility] Lactate [Moles/volume] in Se rum or PlasmaOrdered By: Soco Beasley on 12-09-2024 Lactate [Moles/Vol] Lactate [Moles/volume] in Serum or Plasma 0.5-1.9 [facility] Comment on above: Lactic Acid referenc e range has been updated to 0.5 1.9 mmol/L and the critical range of 2.0 or greater. Lactic Acidon 12-09-2024 Lactate [Moles/Vol] 1.4 mmol/L Normal 0.5-1.9 [facility] Comment on above: Result Comment: Lact ic Acid reference range has been updated to 0.5 ? 1.9 mmol/L and the critical range of 2.0 or greater. PERFORMED BY: [address] [id number] PATHOLOGIST AIRPORT MANAGER MANDY ACUÑA M.D. Performed By: #### C ELDON, PHOS #### [facility] [address] [id number] [facility] Lactate [Moles/Vol] 1.3 mmol/L Normal 0.5-1.9 [facility] Comment on above: Result Comment: Lact ic Acid reference range has been updated to 0.5 ? 1.9 mmol/L and the critical range of 2.0 or greater. PERFORMED BY: [facility] [address] [id number] PATHOLOGIST AIRPORT MANAGER MANDY ACUÑA M.D. Performed By: #### C LUCY COLÓN #### [facility] [address] [id number] [facility] Lymphocytes/100 WBC Manual c nt (Bld)Ordered By: Soco Beasley on 12-09-2024 Lymphocytes/100 WBC (Bld) Lymphocytes/100 leukocytes in Blood by Manual count Low 18-42 [facility] Microcytes LM Ql (Bld)Ordere d By: Soco Beasley on 12-09-2024 Microcytes Ql (Bld) Microcytes [Presence ] in Blood by Light microscopy [facility] Monocytes/100 WBC Manual cnt (Bld)Ordered By: Soco Beasley on 12-09-2024 Monocytes/100 WBC (Bld) Monocytes/100 leukocytes in Blood by Manual count 2-11 [facility] Platelet adequacy [Presence] in Blood by Light microscopyOrdered By: Soco Beasley on 12-09-2024 Platelets LM Ql (Bld) Platelet adequacy [Presence] in Blood by Light microscopy Normal [facility] Platelet morphology finding [Identifier] in BloodOrdered By: Soco Beasley on 12-09-2024 Platelet morphology finding Nom (Bld) Platelet morphology finding [Identifier] in Blood [facility] Poikilocytosis [Presence] in Blood by Light microscopyOrdered By: Soco Beasley on 12-09-2024 Poikilocytosis LM Ql (Bld) Poikilocytosis [Presence] in Blood by Light microscopy [facility] Polychromasia [Presence] in Blood by Light microscopyOrdered By: Soco Beasley on 12-09-2024 Polychromasia LM Ql (Bld) Polychromasia [Presence] in Blood by Light microscopy [facility] Segmented neutrophils/100 WB C Manual cnt (Bld)Ordered By: Soco Beasley on 12-09-2024 Segmented neutrophils/100 WBC (Bld) Manual blood segmented neutrophils/100 leukocytes High 50-70 [facility] Triglycerideson 12-09-2024 Triglyceride [Mass/Vol] 63 mg/dL Normal 35-149 T [facility] Comment on above: Result Comment: TRIG ATP III CLASSIFICATION TRIG less than 150 mg/dL Normal TRIG 150-199 mg/dL Borderline high TRIG 200-500 mg/dL High TRIG greater than 500 mg/dL Very high Standard traceable to the Center for Disease Conrtrol and Prevention (CDC) test method. PERFORMED BY: [place] [address] PATHOLOGIST AIRPORT MANAGER MANDY ACUÑA M.D. Performed By: #### C LAMAR COLÓNS #### [place] [id number] [facility] Troponin I High Sensitivityo n 12-09-2024 Troponin I High Sensitivity 1309 Off scale high 0-15 [facility] Comment on above: Result Comment: Crit ical Result : Called to and read back by: VIOLA KAY at: 12/09/2024 23:07:02 by: The Troponin units of report have been changed to meet the Chest Pain Accreditation requirement, element EC5.M1l2. Troponin units are changed from pg/ml to ng/L. Also, the decimal is removed and results are in whole numbers. PERFORMED BY: [place] [address] PATHOLOGIST AIRPORT MANAGER MANDY ACUÑA M.D. Performed By: #### C LUCY COLÓN #### [place] [id number] [facility] HbA1c (Bld) [Mass fraction]o n 09-20-2024 Interpretation and review of laboratory results Normal [facility] - Hematology and Cell countson 09-20-2024 HbA1c (Bld) [Mass fraction] 6.1 % [facility] Neurology Forms- Texton Neurology Forms- Text [id number] #1.00TIFF Normal [facility] Consent for Treatmenton Consent for Treatment [id number]#1 .00TIFF Normal [facility] Physician Orderon 12-05-2023 Physician Order [id number]#1 .00TIFF Normal [facility] MRI Brain w/ + w/o Contrasto n [...] Lincoln Prater MD Transcribed by: SANA Technologist: RAB Technical Comments [employer] Contrast amount in ml's: 6 Normal [facility] MRI Spine Cervical w/o Contr [...] REPORT Dictated: 12/02/2023 12:40 pm Lincoln Prater MD. Signed (Electronic Signature): 12/02/2023 12:40 pm Signed by: Lincoln Prater MD Transcribed by: SANA Technologist: CORDELIA Technical Comments None Normal [facility] BUNon 11-30-2023 Urea nitrogen [Mass/Vol] 17 mg/dL Normal 5-21 [facility] Comment on above: Performed By: #### 1 [id number], [id number] #### [facility] Laboratory [address] [place] [address] Consent for Treatmenton 11-14 Consent for Treatment [id number] 401 [id number]#1 .00TIFF Normal [facility] Creatinineon 11-30-2023 Creatinine [Mass/Vol] 0.8 mg/dL Normal 0.5-1.3 [facility] Comment on above: Performed By: #### 1 [id number], [id number], [id number] #### [facility] [address] [place] [address] RAD - MRI Screening Formon 0 11-30-2023 RAD - MRI Screening Form [id number]#1 .00TIFF Normal [facility] eGFRon 11-30-2023 eGFR 79 mL/min/1.73 m2 Normal >=59 [facility] Comment on above: Order Comment: Order added by Discern Expert. Performed By: #### 1 [id number], [id number], [id number] #### [facility] [address] [place] [address] Physician Orderon 10-28-2023 Physician Order [id number]#1 .00TIFF Normal [facility] CBC AUTO DIFFon 01-05-2023 BASO # 0.1 103/ul Normal 0.0-0.1 [facility] Comment on above: Performed By: #### C BC #### [facility] [address] [place] [address] Dr. Stan Aceves Basophils/100 WBC (Bld) 0.7 % Normal 0.2-2.0 [facility] Comment on above: Performed By: #### C BC #### [facility] [address] [place] [address] Dr. Stan Aceves EO # 0.1 103/ul Normal 0.0-0.7 [facility] Comment on above: Performed By: #### C BC #### [facility] [address] [place] [address] Dr. Stan Aceves Eosinophils/100 WBC (Bld) 1.0 % Normal 0.9-7.0 [facility] Comment on above: Performed By: #### C BC #### [facility] [address] [place] [address] Dr. Stan Aceves Erythrocyte distribution width (RBC) [Ratio] 16.8 % Critically high 11.0-15.0 [facility] Comment on above: Performed By: #### C BC #### [facility] [address] [place] [address] Dr. Stan Aceves Hematocrit (Bld) [Volume fraction] 33.7 % Critically low 36.0-48.0 [facility] Comment on above: Performed By: #### C BC #### [facility] [address] [place] [address] Dr. Stan Aceves Hemoglobin (Bld) [Mass/Vol] 10.6 g/dL Critically low 12.0-16.0 [facility] Comment on above: Performed By: #### C BC #### [facility] [address] [place] [address] Dr. Stan Aceves IG # 0.03 10e3/ul Normal 0.00-0.03 [facility] Comment on above: Performed By: #### C BC #### [facility] [address] [place] [address] Dr. Stan Aceves IG % 0.3 % Normal 0.0-0.5 [facility] Comment on above: Performed By: #### C BC #### [facility] [address] [place] [address] Dr. Stan Aceves LYMPH # 0.9 103/ul Critically low 1.2-3.8 [facility] Comment on above: Performed By: #### C BC #### [facility] [address] [place] [address] Dr. Stan Aceves Lymphocytes/100 WBC (Bld) 9.9 % Critically low 20.5-60.0 [facility] Comment on above: Performed By: #### C BC #### [facility] [address] [place] [address] Dr. Stan Aceves MANUAL DIFF REQ NO Normal [facility] Comment on above: Performed By: #### C BC #### [facility] [address] [place] [address] Dr. Stan Aceves MCH (RBC) [Entitic mass] 25.7 pg Critically low 26.7-34 .0 [facility] Comment on above: Performed By: #### C BC #### [facility] [address] [place] [address] Dr. Stan Aceves MCHC (RBC) [Mass/Vol] 31.5 g/dL Normal 29.9-35.2 [facility] Comment on above: Performed By: #### C BC #### [facility] [address] [place] [address] Dr. Stan Aceves MCV (RBC) [Entitic vol] 81.6 fL Normal 81.0-99.0 [facility] Comment on above: Performed By: #### C BC #### [facility] [address] [place] [address] Dr. Stan Aceves MONO # 0.7 103/ul Normal 0.3-0.8 [facility] Comment on above: Performed By: #### C BC #### [facility] [address] [place] [address] Dr. Stan Aceves Monocytes/100 WBC (Bld) 7.3 % Normal 1.7-12.0 [facility] Comment on above: Performed By: #### C BC #### [facility] [address] [place] [address] Dr. Stan Aceves NEUT # 7.4 103/ul Critically high 1.4-6.5 [facility] Comment on above: Performed By: #### C BC #### [facility] [address] [place] [address] Dr. Stan Aceves Neutrophils/100 WBC (Bld) 80.8 % Critically high 43.0-75.0 [facility] Comment on above: Performed By: #### C BC #### [facility] [address] [address] [address] Stan Aceves Platelet mean volume (Bld) [Entitic vol] 8.2 fL Critically low 9.5-13.5 [facility] Comment on above: Performed By: #### C BC #### [facility] [address] [place] [address] Dr. Stan Aceves PLT 396 103/ul Normal 150-450 [facility] Comment on above: Performed By: #### C BC #### [facility] [address] [address] [address] Stan Aceves RBC 4.13 106/ul Critically low 4.20-5.40 [facility] Comment on above: Performed By: #### C BC #### [facility] [address] [place] [address] Dr. Stan Aceves WBC 9.2 103/ul Normal 4.0-11.0 [facility] Comment on above: Performed By: #### C BC #### [facility] [address] [place] [address] Dr. Stan Aceves GLYCOHEMOGLOBIN A1Con 2022 ADA RECOMMENDATION SEE BELOW Normal [facility] Comment on above: Result Comment: ADA RECOMMENDED LIMIT 4.0 - 6.0 ADA THERAPEUTIC TARGET < 7.0 ACTION SUGGESTED > 7.0 Performed By: #### A 1C #### [facility] [address] [place] [address] Dr. Stan cAeves Glucose [Mass/Vol] 126 mg/dL Normal [facility] Comment on above: Performed By: #### A 1C #### [facility] [address] [place] [address] Dr. Stan Aceves HbA1c (Bld) [Mass fraction] 6.0 % Normal 4.5-6.2 [facility] Comment on above: Performed By: #### A 1C #### [facility] [address] [place] [address] Dr. Stan Aceves IRONon 01-05-2023 Iron [Mass/Vol] 36.0 ug/dL Critically low 50.0-170.0 [facility] Comment on above: Performed By: #### I KAM #### [facility] [address] [place] [address] Dr. Stan Aceves MICROALBUMIN, RAND URon 12-16 mALB <1.3 Normal <=30.0 [facility] Comment on above: Performed By: #### M ALBR #### [facility] [address] [place] [address] Dr. Stan Aceves PROF 14(COMP METB)on 023 Albumin [Mass/Vol] 3.5 g/dL Normal 3.4-5.0 [facility] Comment on above: Performed By: #### T 4, CMP, TSH #### [facility] [address] [place] [address] Dr. Stan Aceves Albumin/Globulin [Mass ratio] 1.0 {ratio} Normal [facility] Comment on above: Performed By: #### T 4, CMP, TSH #### [facility] [address] [place] [address] Dr. Stan Aceves ALP [Catalytic activity/Vol] 105 U/L Normal 46-116 [facility] Comment on above: Performed By: #### T 4, CMP, TSH #### [facility] [address] [place] [address] Dr. Stan Aceves ALT [Catalytic activity/Vol] 20 U/L Normal 14-59 [facility] Comment on above: Performed By: #### T 4, CMP, TSH #### [facility] [address] [place] [address] Dr. Stan Aceves Anion gap [Moles/Vol] 12.1 mmol/L Normal [facility] Comment on above: Performed By: #### T 4, CMP, TSH #### [facility] [address] [place] [address] Dr. Stan Aceves AST [Catalytic activity/Vol] 14 U/L Critically low 15-37 [facility] Comment on above: Performed By: #### T 4, CMP, TSH #### [facility] [address] [place] [address] Dr. Stan Aceves Bilirubin [Mass/Vol] 0.3 mg/dL Normal 0.2-1.0 [facility] Comment on above: Performed By: #### T 4, CMP, TSH #### [facility] [address] [place] [address] Dr. Stan Aceves Calcium [Mass/Vol] 9.1 mg/dL Normal 8.5-10.1 [facility] Comment on above: Performed By: #### T 4, CMP, TSH #### [facility] [address] [place] [address] Dr. Stan Aceves Chloride [Moles/Vol] 103 mmol/L Normal 98-107 [facility] Comment on above: Performed By: #### T 4, CMP, TSH #### [facility] [address] [place] [address] Dr. Stan Aceves CO2 [Moles/Vol] 26.8 mmol/L Normal 21.0-32.0 [facility] Comment on above: Performed By: #### T 4, CMP, TSH #### [facility] [address] [place] [address] Dr. Stan Aceves Creatinine [Mass/Vol] 0.84 mg/dL Normal 0.55-1.02 [facility] Comment on above: Performed By: #### T 4, CMP, TSH #### [facility] [address] [place] [address] Dr. Stan Aceves EGFR-AF URUGUAYAN >60 Normal >=60 [facility] Comment on above: Performed By: #### T 4, CMP, TSH #### [facility] [address] [place] [address] Dr. Stan Aceves EGFR-NON AF URUGUAYAN >60 Normal >=60 [facility] Comment on above: Performed By: #### T 4, CMP, TSH #### [facility] [address] [place] [address] Dr. Stan Aceves Globulin (S) [Mass/Vol] 3.6 g/dL Normal T [facility] Comment on above: Performed By: #### T 4, CMP, TSH #### [facility] [address] [address] [address] Stan Aceves Glucose [Mass/Vol] 84 mg/dL Normal 74-106 [facility] Comment on above: Performed By: #### T 4, CMP, TSH #### [facility] [address] [place] [address] Dr. Stan Aceves Potassium [Moles/Vol] 3.9 mmol/L Normal 3.5-5.1 [facility] Comment on above: Performed By: #### T 4, CMP, TSH #### [facility] [address] [place] [address] Dr. Stan Aceves Protein [Mass/Vol] 7.1 g/dL Normal 6.4-8.2 [facility] Comment on above: Performed By: #### T 4, CMP, TSH #### [facility] [address] [place] [address] Dr. Stan Aceves Sodium [Moles/Vol] 138 mmol/L Normal 136-145 [facility] Comment on above: Performed By: #### T 4, CMP, TSH #### [facility] [address] [place] [address] Dr. Stan Aceves Urea nitrogen [Mass/Vol] 12.0 mg/dL Normal 7.0-18.0 [facility] Comment on above: Performed By: #### T 4, CMP, TSH #### [facility] [address] [place] [address] Dr. Stan Aceves Urea nitrogen/Creatinine [Mass ratio] 14.3 mg/mg Normal [facility] Comment on above: Performed By: #### T 4, CMP, TSH #### [facility] [address] [place] [address] Dr. Stan Aceves T4on 01-05-2023 T4 [Mass/Vol] 8.70 ug/dL Normal 4.80-13.90 [facility] Comment on above: Performed By: #### T 4, CMP, TSH #### [facility] [address] [place] [address] Dr. Stan Aceves TSHon 01-05-2023 TSH 2.209 uIU/mL Normal 0.358-3.740 [facility] Comment on above: Performed By: #### T 4, CMP, TSH #### [facility] [address] [address] [address] Stan Aceves MRI BRAIN WO W [...] PATRICK PIERRE Date: 2022-04-27 10:16 Normal [facility] CREATININEon 04-08-2022 Creatinine [Mass/Vol] 0.91 mg/dL Normal 0.55-1.02 [facility] Comment on above: Performed By: #### C ONIEL #### [facility] [address] [address] [address] Stan Aceves EGFR-AF URUGUAYAN >60 Normal >=60 [facility] Comment on above: Performed By: #### C ONIEL #### [facility] [address] [address] [address] Stan Aceves EGFR-NON AF URUGUAYAN >60 Normal >=60 [facility] Comment on above: Performed By: #### C ONIEL #### [facility] [address] [address] [address] Stan Aceves CTA ABD/PELVIS WO W [...] PATRICK PIERRE Date: 2022-04-08 10:04 Normal [facility] Established Visit (Otolaryng ology)on 09-26-2018 Established Visit [...] EVERY week --take 30 MINUTES before BREAKFAST;Therapy: [id number] to Recorded Rx By: Zion; Dispense: 84 [...] TAKE 1 TABLET BY MOUTH DAILY ATBEDTIME;Therapy: [id number] to Recorded Rx By: Zion; Dispense: 30 Days ; #:30; Refill: 0; ARIEL = N; Record; Last Updated By: Domenica Topete; 10/11/2017 1:16:16 PM Famotidine 20 MG Oral Tablet; TAKE 1 TABLET AT BEDTIME and TAKE 1 TABLET ASNEEDED during the day;Therapy: [id number] to Recorded Rx By: Zion; Dispense: 30 [...] 1:16:16 PM Lisinopril 20 MG Oral Tablet;Therapy: [id number] to Recorded Rx By: GIANNA ISABEL; Dispense: 30 Days ; #:30; Refill: 0; ARIEL = N; Record; Last Updated By: Beverley Covarrubias; 09/16/2015 1:29:38 PM Meloxicam 7.5 MG Oral Tablet;Therapy: [id number] to Recorded Rx By: GIANNA ISABEL; Dispense: [...] = N; Record; Last Updated By: Domenica Toptee; 10/11/2017 1:16:16 PM Ulti-Michael Automatic;Therapy: [id number] to Recorded Dispense: 30 Days ; #:1; Refill: 0; ARIEL = N; Record; Last Updated By: Rachel Contreras; 10/10/2013 3:23:22 PM Diagnoses/Problems Acoustic neuroma (225.1) (D33.3) Orders MRI IAC w/wo Contrast; Status:Hold For - Scheduling,Retrospect desmond By ProtocolAuthorization ; Requested for:15Sep2020; Perform:[facility] Services Imaging; Due:14Dec2020; Last Updated By:Carole [...] index (BMI) [Ratio] 25.05 kg/m2 La Ramone CARE TRANSITIONS NURSE Work Phone: [facility] 02-06-2025 10:08-0400 Body temperature 98.1 [degF] La Ramone CARE TRANSITIONS NURSE Work Phone: [facility] 02-06-2025 10:08-0400 Body weight 64.14 kg La Ramone CARE TRANSITIONS NURSE Work Phone: [facility] 02-06-2025 10:08-0400 Diastolic blood pressure 72 mm[Hg] La Ramone CARE TRANSITIONS NURSE Work Phone: [facility] 02-06-2025 10:08-0400 Heart rate 80 /min La Pack CARE TRANSITIONS NURSE Work Phone: [facility] 02-06-2025 10:08-0400 Respiratory rate 20 /min La Pack CARE TRANSITIONS NURSE Work Phone: [facility] 02-06-2025 10:08-0400 SaO2% (BldA) [Mass fraction] 97 % La Aichholz CARE TRANSITIONS NURSE Work Phone: [facility] Comment on above: with 3L of 02 on 02-06-2025 10:08-0400 Systolic blood pressure 124 mm[Hg] La Dalehholz CARE TRANSITIONS NURSE Work Phone: [facility] 01-23-2025 11:44-0400 Body height 160 cm La Aichholz CARE TRANSITIONS NURSE Work Phone: [facility] 01-23-2025 11:44-0400 Body mass index (BMI) [Ratio] 25.15 kg/m2 La Aichholz CARE TRANSITIONS NURSE Work Phone: [facility] 01-23-2025 11:44-0400 Body temperature 97.81 [degF] La Aichholz CARE TRANSITIONS NURSE Work Phone: [facility] 01-23-2025 11:44-0400 Body weight 64.41 kg La Aichholz CARE TRANSITIONS NURSE Work Phone: [facility] 01-23-2025 11:44-0400 Diastolic blood pressure 56 mm[Hg] La Aichholz CARE TRANSITIONS NURSE Work Phone: [facility] 01-23-2025 11:44-0400 Heart rate 98 /min La Aichholz CARE TRANSITIONS NURSE Work Phone: [facility] 01-23-2025 11:44-0400 Respiratory rate 24 /min La Aichholz CARE TRANSITIONS NURSE Work Phone: [facility] 01-23-2025 11:44-0400 SaO2% (BldA) [Mass fraction] 97 % La Aichholz CARE TRANSITIONS NURSE Work Phone: [facility] 01-23-2025 11:44-0400 Systolic blood pressure 110 mm[Hg] La Aichholz CARE TRANSITIONS NURSE Work Phone: [facility] 01-14-2025 09:30-0500 Body height 160 cm Ian Soares MD Work Phone: [facility] 01-14-2025 09:30-0500 Body mass index (BMI) [Ratio] 25.15 kg/m2 Ian Soares MD Work Phone: [facility] 01-14-2025 09:30-0500 Body temperature 96.6 [degF] Ian Soares MD Work Phone: [facility] 01-14-2025 09:30-0500 Body weight 64.41 kg Ian Soares MD Work Phone: [facility] 01-14-2025 09:30-0500 Diastolic blood pressure 66 mm[Hg] Ian Soares MD Work Phone: [facility] 01-14-2025 09:30-0500 Heart rate 85 /min Ian Soares MD Work Phone: [facility] 01-14-2025 09:30-0500 Respiratory rate 22 /min Ian Soares MD Work Phone: [facility] 01-14-2025 09:30-0500 SaO2% (BldA) [Mass fraction] 97 % Ian Soares MD Work Phone: [facility] 01-14-2025 09:30-0500 Systolic blood pressure 130 mm[Hg] Ian Soares MD Work Phone: [facility] 01-04-2025 09:09-0500 Body height 160.02 cm Daniel Cardoso CARE TRANSITIONS NURSE-C Work Phone: [facility] 01-04-2025 09:09-0500 Body mass index (BMI) [Ratio] 24.7 kg/m2 Daniel Cardoso CARE TRANSITIONS NURSE-C Work Phone: [facility] 01-04-2025 09:09-0500 Body weight 63.5 kg Daniel Cardoso CARE TRANSITIONS NURSE-C Work Phone: [facility] 01-04-2025 09:09-0500 Diastolic blood pressure 56 mm[Hg] Daniel Cardoso CARE TRANSITIONS NURSE-C Work Phone: [facility] 01-04-2025 09:09-0500 Heart rate 82 /min Daniel Castorenapatrick CARE TRANSITIONS NURSE-C Work Phone: [facility] 01-04-2025 09:09-0500 Inhaled oxygen flow rate 3 L/min Daniel Cardoso CARE TRANSITIONS NURSE-C Work Phone: [facility] 01-04-2025 09:09-0500 Respiratory rate 18 /min Daniel Cardoso CARE TRANSITIONS NURSE-C Work Phone: [facility] 01-04-2025 09:09-0500 SaO2% (BldA) [Mass fraction] 97 % Daniel Cardoso CARE TRANSITIONS NURSE-C Work Phone: [facility] 01-04-2025 09:09-0500 Systolic blood pressure 104 mm[Hg] Daniel Castorenapatrick CARE TRANSITIONS NURSE-C Work Phone: [facility] 01-01-2025 13:20-0500 Body temperature 98.1 [degF] Stephen Furlong DO Work Phone: [facility] [email or web address] [facility] 01-01-2025 13:20-0500 Diastolic blood pressure 84 mm[Hg] Stephen [email or web address] 01-01-2025 13:20-0500 Heart rate 73 /min Stephen Furlong DO [email or web address] 01-01-2025 13:20-0500 Respiratory rate 16 /min Stephen Furlong DO [facility] 01-01-2025 13:20-0500 SaO2% (BldA) [Mass fraction] 96 % Stephen Furlong DO Work Phone[facility] 01-01-2025 13:20-0500 Systolic blood pressure 129 mm[Hg] Stephen Furlong DO Work Phone: [facility] [email or web address] [facility] 12-28-2024 14:56-0500 Body temperature 97.2 [degF] Stephen Furlong DO Work Phone: [facility] [employer] 12-28-2024 14:56-0500 Diastolic blood pressure 79 mm[Hg] Stephen Furlong DO Work Phone: [facility] [employer] 12-28-2024 14:56-0500 Heart rate 79 /min Stephen Furlong DO Work Phone: [facility] [employer] 12-28-2024 14:56-0500 Respiratory rate 18 /min Stephen Furlong DO Work Phone: [facility] [employer] 12-28-2024 14:56-0500 SaO2% (BldA) [Mass fraction] 96 % Stephen Furlong DO Work Phone: [facility] [employer] 12-28-2024 14:56-0500 Systolic blood pressure 150 mm[Hg] Stephen Furlong DO Work Phone: [facility] [email or web address] [facility] 12-25-2024 17:23-0500 Body mass index (BMI) [Ratio] 24.03 kg/m2 Stephen Furlong DO Work Phone: [facility] [employer] 12-25-2024 17:23-0500 Body temperature 97.9 [degF] Stephen Furlong DO Work Phone: [facility] [email or web address] [facility] 12-25-2024 17:23-0500 Body weight 63.5 kg Stephen Furlong DO Work Phone: [facility] 12-25-2024 17:23-0500 Diastolic blood pressure 75 mm[Hg] Stephen Furlong DO Work Phone: [facility] [email or web address] [facility] 12-25-2024 17:23-0500 Heart rate 94 /min Stephen Furlong DO Work Phone: [facility] [email or web address] [facility] 12-25-2024 17:23-0500 Respiratory rate 18 /min Stephen Furlong DO Work Phone: [facility] [employer] 12-25-2024 17:23-0500 SaO2% (BldA) [Mass fraction] 93 % Stephen Furlong DO Work Phone: [facility] 12-25-2024 17:23-0500 Systolic blood pressure 124 mm[Hg] Stephen Furlong DO Work Phone: [facility] [email or web address] [facility] 12-18-2024 19:16-0500 Body height 162.6 cm Stephen Furlong DO Work Phone: [facility] 12-18-2024 19:16-0500 Body temperature 97.81 [degF] Stephen Furlong DO Work Phone: [facility] 12-18-2024 19:16-0500 Diastolic blood pressure 65 mm[Hg] Stephen Furlong DO Work Phone: [facility] [email or web address] [facility] 12-18-2024 19:16-0500 Heart rate 82 /min Stephen Furlong DO Work Phone: [facility] 12-18-2024 19:16-0500 Respiratory rate 18 /min Stephen Furlong DO Work Phone: [facility] 12-18-2024 19:16-0500 SaO2% (BldA) [Mass fraction] 92 % Stephen Furlong DO Work Phone: [facility] [email or web address] [facility] 12-18-2024 19:16-0500 Systolic blood pressure 112 mm[Hg] Stephen Furlong DO Work Phone: [facility] [email or web address] [facility] 12-14-2024 14:05-0500 Heart rate 91 /min Daniel Cardoso CARE TRANSITIONS NURSE-C Work Phone: [facility] 12-14-2024 14:05-0500 Respiratory rate 18 /min Daniel Cardoso CARE TRANSITIONS NURSE-C Work Phone: [facility] 12-14-2024 09:25-0500 Body temperature 97.5 [degF] Daniel Cardoso CARE TRANSITIONS NURSE-C Work Phone: [facility] 12-14-2024 09:25-0500 Diastolic blood pressure 57 mm[Hg] Daniel Cardoso CARE TRANSITIONS NURSE-C Work Phone: [facility] 12-14-2024 09:25-0500 Inhaled oxygen flow rate 4 L/min Daniel Cardoso CARE TRANSITIONS NURSE-C Work Phone: [facility] 12-14-2024 09:25-0500 SaO2% (BldA) [Mass fraction] 90 % Daniel Cardoso CARE TRANSITIONS NURSE-C Work Phone: [facility] 12-14-2024 09:25-0500 Systolic blood pressure 104 mm[Hg] Daniel Cardoso CARE TRANSITIONS NURSE-C Work Phone: [facility] 12-14-2024 06:00-0500 Body weight 65.3 kg Daniel Cardoso CARE TRANSITIONS NURSE-C Work Phone: [facility] 12-13-2024 17:05-0500 Body height 162.56 cm Daniel Cardoso CARE TRANSITIONS NURSE-C Work Phone: [facility] 12-11-2024 12:00-0500 Inhaled oxygen concentration 40 % Daniel Cardoso CARE TRANSITIONS NURSE-C Work Phone: [facility] 09-20-2024 09:43-0500 Body height 160 cm Daniel Cardoso CARE TRANSITIONS NURSE Work Phone: [facility] 09-20-2024 09:43-0500 Body mass index (BMI) [Ratio] 24.13 kg/m2 Daniel Cardoso CARE TRANSITIONS NURSE Work Phone: [facility] 09-20-2024 09:43-0500 Body temperature 96.69 [degF] Daniel Staffordk CARE TRANSITIONS NURSE Work Phone: [facility] 09-20-2024 09:43-0500 Body weight 61.78 kg Daniel Staffordk CARE TRANSITIONS NURSE Work Phone: [facility] 09-20-2024 09:43-0500 Diastolic blood pressure 74 mm[Hg] Daniel Martineztrick CARE TRANSITIONS NURSE Work Phone: [facility] 09-20-2024 09:43-0500 Heart rate 85 /min Daniel Martineztrick CARE TRANSITIONS NURSE Work Phone: [facility] 09-20-2024 09:43-0500 Respiratory rate 18 /min Daniel Staffordk CARE TRANSITIONS NURSE Work Phone: [facility] 09-20-2024 09:43-0500 SaO2% (BldA) [Mass fraction] 94 % Daniel Staffordk CARE TRANSITIONS NURSE Work Phone: [facility] 09-20-2024 09:43-0500 Systolic blood pressure 128 mm[Hg] Daniel Martineztrick CARE TRANSITIONS NURSE Work Phone: [facility] Encounters Encounter Date Encounter Type Care Provider Facility Start: 02-20-2025 End: 02-20-2025 Refill La Ramone CARE TRANSITIONS NURSE Work Phone: [facility] Comment on above: 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 Start: 02-19-2025 End: 02-19-2025 Orders Only La Pack CARE TRANSITIONS NURSE Work Phone: [facility] Comment on above: Elevated TSH Start: 02-18-2025 End: 02-18-2025 Clinisync Result Encounter La Pack CARE TRANSITIONS NURSE Work Phone: [facility] External Department Unsolicited Start: 02-18-2025 End: 02-18-2025 Clinisync Result Encounter La Pack CARE TRANSITIONS NURSE Work Phone: [facility] Unsolicited Start: 02-06-2025 End: 02-06-2025 Office outpatient visit 25 minutes La Pack CARE TRANSITIONS NURSE Work Phone: [facility] Comment on above: Type 2 diabetes shanthi [...] Other hyperlipidemia (CMS/HCC); Acute hypoxic respiratory failure ([facility]/HCC) Start: 02-06-2025 End: 02-06-2025 ambulatory LA AICHHOLZ Not Available Start: 01-23-2025 End: 01-23-2025 Office outpatient visit 25 minutes La Pack CARE TRANSITIONS NURSE Work Phone: [facility] Comment on above: Scalp laceration, se quela (Primary Dx); Cigarette nicotine dependence without complication; COPD exacerbation (CMS/HCC) Start: 01-23-2025 End: 01-23-2025 ambulatory LA AICHHOLZ Not Available Start: 01-14-2025 End: 01-14-2025 Bamboo flowsheet Ian Soares MD Work Phone: [facility] Start: 01-14-2025 End: 01-14-2025 Roberto Carlos flowspalomo Soares MD Work Phone: [facility] Start: 01-14-2025 End: 01-14-2025 Transitional care manage srvc 14 day discharge Ian Soares MD Work Phone: [facility] Comment on above: Influenza A (Primary Dx); Chronic obstructive pulmonary disease, unspecified COPD type (CMS/HCC); Acute hypoxic respiratory failure (CMS/HCC); Type 2 diabetes mellitus without complication, without long-term current use of insulin (CMS/HCC); Primary hypertension (CMS/HCC); Benign neoplasm of cranial nerves (CMS/HCC); Type 2 diabetes mellitus with diabetic polyneuropathy ([facility]) Start: 01-14-2025 End: 01-14-2025 ambulatory IAN SOARES Not Available Start: 01-04-2025 End: 01-04-2025 ambulatory Daniel Fer Cardoso CARE TRANSITIONS NURSE-C Work Phone: [facility] Work Phone: Start: 01-04-2025 End: 01-04-2025 Patient encounter procedure Daniel Cardoso CARE TRANSITIONS NURSE-C Work Phone: [facility] Work Phone: Start: 01-01-2025 End: 01-01-2025 ambulatory Stephen Macias DO Work Phone: [facility] Comment on above: Acute hypoxic respir atory failure ([facility]-HCC) (Primary Dx); Aspiration pneumonia, unspecified aspiration pneumonia type, unspecified laterality, unspecified part of lung ([facility]-HCC); Chronic obstructive pulmonary disease, unspecified COPD type ([facility]); Influenza A; Type 2 diabetes mellitus without complication, without long-term current use of insulin ([facility]-HCC); Other abnormalities of gait and mobility; Anxiety Start: 12-28-2024 End: 12-28-2024 ambulatory Stephen Macias DO Work Phone: [facility] Comment on above: Acute hypoxic respir atory failure ([facility]-HCC) (Primary Dx); Chronic obstructive pulmonary disease, unspecified COPD type ([facility]-HCC); Influenza A; Other abnormalities of gait and mobility Start: 12-25-2024 End: 01-02-2025 ambulatory Stephen Macias DO Work Phone: [facility] Comment on above: Chronic obstructive pulmonary disease, unspecified COPD type ([facility]-HCC) (Primary Dx); Influenza A; Other abnormalities of gait and mobility; Anxiety; Cigarette smoker Start: 12-18-2024 End: 12-24-2024 ambulatory Stephen Macias DO Work Phone: [facility] Comment on above: Acute hypoxic respir atory failure ([facility]-HCC) (Primary Dx); Chronic obstructive pulmonary disease, unspecified COPD type ([facility]); Influenza A; Aspiration pneumonia, unspecified aspiration pneumonia type, unspecified laterality, unspecified part of lung ([facility]); Depression, unspecified depression type; Cigarette smoker; Type 2 diabetes mellitus without complication, without long-term current use of insulin ([facility]); Anxiety Start: 12-13-2024 Non-patient / Non-visit Margo ny Cardoso CARE TRANSITIONS NURSE-C Work Phone: [facility] Work Phone: Start: 12-10-2024 Non-patient / Non-visit Margo saldivar Cardoso CARE TRANSITIONS NURSE-C Work Phone: [facility] Work Phone: Start: 12-10-2024 Non-patient / Non-visit Margo saldivar Cardoso CARE TRANSITIONS NURSE-C Work Phone: [facility] Work Phone: Start: 12-10-2024 Non-patient / Non-visit Margo saldivar Cardoso CARE TRANSITIONS NURSE-C Work Phone: [facility] Work Phone: Start: 12-09-2024 End: 12-14-2024 Evaluation and management of inpatient Daniel Cardoso CARE TRANSITIONS NURSE-C Work Phone: [facility] [place] Work Phone: Start: 12-09-2024 End: 12-09-2024 ambulatory UNKNOWN PROVIDER Facility:[facility] Start: 12-09-2024 End: 12-11-2024 Clinisync Result [...] with COPD (ch ronic obstructive pulmonary disease) ([facility]) Start: 11-12-2024 End: 11-14-2024 Refill Daniel Cardoso CARE TRANSITIONS NURSE Work Phone: [facility] Comment on above: 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 Start: 10-22-2024 End: 10-22-2024 Refill Daniel Cardoso CARE TRANSITIONS NURSE Work Phone: [facility] Comment on above: Gastro-esophageal re flux disease without esophagitis Start: 10-22-2024 End: 10-22-2024 Refill Daniel Cardoso CARE TRANSITIONS NURSE Work Phone: [facility] Comment on above: Depression, unspecif ied ([facility]) Start: 09-20-2024 End: 09-20-2024 Bamboo flowsheet Daniel Cardoso CARE TRANSITIONS NURSE Work Phone: [facility] Start: 09-20-2024 End: 09-20-2024 Bamboo flowsheet Daniel Cardoso CARE TRANSITIONS NURSE Work Phone: [facility] Start: 09-20-2024 End: 09-20-2024 Office outpatient visit 15 minutes Daniel Cardoso CARE TRANSITIONS NURSE Work Phone: [facility] Comment on above: Primary hypertension ([facility]) (Primary Dx); Type 2 diabetes mellitus without complication, without long-term current use of insulin ([facility]); Other hyperlipidemia ([facility]); Asthma with COPD (chronic obstructive pulmonary disease) ([facility]); Non-recurrent acute serous otitis media of left ear Start: 09-20-2024 End: 09-20-2024 ambulatory DANIEL CARDOSO Not Available Start: 09-11-2024 End: 09-11-2024 Refill Daniel Cardoso CARE TRANSITIONS NURSE Work Phone: [facility] Comment on above: Type 2 diabetes shanthi itus without complications (CMS/HCC) Hyperlipidemia, unsp ecified (CMS/HCC) Other bursitis of el bow, left elbow Start: 09-03-2024 End: 09-03-2024 Refill Ailyn Eng [facility] Comment on above: Asthma with COPD (ch ronic obstructive pulmonary disease) ([facility]) Start: 08-27-2024 End: 08-27-2024 Refill Daniel Cardoso CARE TRANSITIONS NURSE Work Phone: [facility] Comment on above: Asthma with COPD (ch ronic obstructive pulmonary disease) ([facility]/HCC) Start: 08-01-2024 End: 08-02-2024 Refill Arturo CAMPOSS [facility] Comment on above: Hyperlipidemia, unsp ecified (CMS/HCC); Other bursitis of elbow, left elbow; Depression, unspecified (CMS/HCC); Type 2 diabetes mellitus without complications (CMS/HCC) Start: 07-25-2024 End: 07-26-2024 Refill Arturo Chanel MA [facility] Comment on above: Other bursitis of el bow, left elbow Start: 07-23-2024 End: 07-23-2024 Refill Daniel Cardoso CARE TRANSITIONS NURSE Work Phone: [facility] Comment on above: Type 2 diabetes shanthi itus without complications (CMS/HCC); Hyperlipidemia, unspecified (CMS/HCC) Start: 07-07-2024 End: 07-07-2024 Chart abstracting Daniel Cardoso CARE TRANSITIONS NURSE Work Phone: [facility] Comment on above: 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 (Primary Dx) Start: 06-21-2024 End: 06-21-2024 ambulatory DANIEL CARDOSO Not Available Start: 03-08-2024 End: 03-08-2024 ambulatory SHAIKH HERO Not Available Start: 03-01-2024 End: 03-01-2024 ambulatory ARIELLE WHEELER Not Available Start: 12-15-2023 End: 12-16-2023 ambulatory Arielle Wheeler Facility:[facility] Start: 12-15-2023 End: 12-15-2023 Patient encounter procedure Arielle Wheeler [facility] Start: 11-30-2023 End: 12-01-2023 ambulatory Arielle Wheeler Facility:[facility] Start: 10-28-2023 End: 11-10-2023 Pre-admission assessment Arielle Wheeler [facility] Start: 01-05-2023 End: 01-06-[address] GIANNA ISABEL Facility: Start: 04-26-2022 End: 04-27-[address] GIANNA ISABEL Facility:[facility] Start: 04-08-2022 End: 04-09-[address] GIANNA ISABEL Facility:[facility] Procedures Date Procedure Procedure Detail Performing Clinician Start: 02-18-2025 MM TOMOSYNTHESIS SCR EENING BI La Pack CARE TRANSITIONS NURSE Work Phone: Start: 02-18-2025 ALL CBC WITH AUTO DIFF La Pack CARE TRANSITIONS NURSE Work Phone: Start: 02-18-2025 Mammography La cruz CARE TRANSITIONS NURSE Work Phone: Start: 12-11-2024 Plain chest X-ray Taylor any Cardoso CARE TRANSITIONS NURSE-C Work Phone: Start: 12-10-2024 Plain chest X-ray Taylor any Cardoso CARE TRANSITIONS NURSE-C Work Phone: Start: 12-09-2024 Plain X-ray abdomen Katy ttany Cardoso CARE TRANSITIONS NURSE-C Work Phone: Start: 12-09-2024 Plain chest X-ray Taylor any Cardoso CARE TRANSITIONS NURSE-C Work Phone: Start: 12-09-2024 BLOOD CULTURE 2 Generic External Data Provider Start: 12-09-2024 Aerobic microbial culture Daniel Walker CARE TRANSITIONS NURSE-C Work Phone: Start: 12-09-2024 Bacteria identified in Blood by Culture Daniel Cardoso CARE TRANSITIONS NURSE-C Work Phone: Start: 12-09-2024 Gram stain microscopy B florencejohn Walker CARE TRANSITIONS NURSE-C Work Phone: Start: 09-20-2024 Hemoglobin glycosyla brendan a1c Daniel Walker CARE TRANSITIONS NURSE Work Phone: Start: 01-16-2024 Mammography Daniel foster CARE TRANSITIONS NURSE Work Phone: Plan of Treatment Date Care Activity Detail Author Start: 01-30-2027 Glaucoma screening Diabetes: R etinopathy Screening [facility] Start: 02-18-2026 Screening for malign ant neoplasm of breast Mammogram [facility] Start: 02-18-2026 Urine screening for protein Diabetes: Urine Protein Screening [facility] Start: 11-14-2025 Screening for malign ant neoplasm of colon [facility] Start: 08-20-2025 Hemoglobin A1c measurement Diabetes: Hemoglobin A1C [facility] [facility] Start: 07-15-[facility]25 Influenza vaccination Influenz a Vaccine (Season Ended) [facility] Start: 05-13-2025 Influenza vaccination Influenza Vacc ine (#1) [facility] Comment on above: Postponed from 07/15 (Patient Refused) Start: 04-16-2025 End: 04-16-2025 Patient encounter procedure [facility] Start: 03-22-2025 End: 02-20-2026 CBC W Auto Differential panel - Blood CBC and differential Lab Routine 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 loss Expected: 03/22/2025 (Approximate), Expires: 02/20/2026 [facility] Comment on above: Expected: 03/22/2025 (Approximate), Expires: 02/20/2026 Start: 03-22-2025 End: 02-20-2026 Iron and Iron binding capacity panel - Serum or Plasma Iron level Lab Routine 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 loss Expected: 03/22/2025 (Approximate), Expires: 02/20/2026 [facility] Work Phone: Comment on above: Expected: 03/22/2025 (Approximate), Expires: 02/20/2026 Start: 03-21-2025 End: 02-19-2026 Thyrotropin [Units/volume] in Serum or Plasma TSH Lab Routine Elevated TSH Expected: 03/21/2025 (Approximate), Expires: 02/19/2026 [facility] Work Phone: Comment on above: Expected: 03/21/2025 (Approximate), Expires: 02/19/2026 Start: 03-21-2025 End: 02-19-2026 Thyroxine (T4) free [Mass/volume] in Serum or Plasma T4, free Lab Routine Elevated TSH Expected: 03/21/2025 (Approximate), Expires: 02/19/2026 [facility] Comment on above: Expected: 03/21/2025 (Approximate), Expires: 02/19/2026 Start: 03-20-2025 Hemoglobin A1c measurement Diabetes: Hemoglobin A1C [facility] Start: 03-14-2025 Glaucoma screening Diabetes: R etinopathy Screening [facility] Start: 03-08-2025 Medicare Annual Well ness (AWV) Medicare Annual Wellness (AWV) [facility] Start: 02-06-2025 End: 02-06-2026 25-hydroxyvitamin D3 [Mass/volume] in Serum or Plasma Vitamin D 25 hydroxy Lab Routine Vitamin D deficiency Expected: 02/06/2025 (Approximate), Expires: 02/06/2026 [facility] Comment on above: Expected: 02/06/2025 (Approximate), Expires: 02/06/2026 Start: 02-06-2025 End: 02-06-2026 CBC W Auto Differential panel - Blood CBC and differential Lab Routine 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 loss Expected: 02/06/2025 (Approximate), Expires: 02/06/2026 [facility] Comment on above: Expected: 02/06/2025 (Approximate), Expires: 02/06/2026 Start: 02-06-2025 End: 02-06-2026 Comprehensive metabolic 2000 panel - Serum or Plasma Comprehensive metabolic panel Lab Routine Primary hypertension ([facility]/HCC) Type 2 diabetes mellitus without complication, without long-term current use of insulin ([facility]) Expected: 02/06/2025 (Approximate), Expires: 02/06/2026 [facility] Comment on above: Expected: 02/06/2025 (Approximate), Expires: 02/06/2026 Start: 02-06-2025 End: 02-06-2026 Ferritin [Mass/volume] in Serum or Plasma Ferritin Lab Routine 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 loss Expected: 02/06/2025 (Approximate), Expires: 02/06/2026 [facility] Comment on above: Expected: 02/06/2025 (Approximate), Expires: 02/06/2026 Start: 02-06-2025 End: 02-06-2026 Hemoglobin A1c/Hemoglobin.total in Blood Hemoglobin A1c Lab Routine Type 2 diabetes mellitus without complication, without long-term current use of insulin ([facility]) Expected: 02/06/2025 (Approximate), Expires: 02/06/2026 [facility] Comment on above: Expected: 02/06/2025 (Approximate), Expires: 02/06/2026 Start: 02-06-2025 End: 02-06-2026 Iron + transferrin + TIBC Iron + transferrin + TIBC Lab Routine 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 loss Expected: 02/06/2025 (Approximate), Expires: 02/06/2026 [facility] Comment on above: Expected: 02/06/2025 (Approximate), Expires: 02/06/2026 Start: 02-06-2025 End: 02-06-2026 Lipid 1996 panel - Serum or Plasma Lipid panel Lab Routine Other hyperlipidemia ([facility]) Expected: 02/06/2025 (Approximate), Expires: 02/06/2026 [facility] Comment on above: Expected: 02/06/2025 (Approximate), Expires: 02/06/2026 Start: 02-06-2025 End: 04-08-2026 MG Breast - bilateral Screening Bilateral screening mammogram Imaging Routine Screening mammogram, encounter for Expected: 02/06/2025 (Approximate), Expires: 04/08/2026 [facility] Work Phone: Comment on above: Expected: 02/06/2025 (Approximate), Expires: 04/08/2026 Start: 02-06-2025 End: 02-06-2026 Microalbumin/Creatinine panel in random Urine Microalbumin / creatinine, urine ratio Lab Routine Primary hypertension (CMS/HCC) Type 2 diabetes mellitus without complication, without long-term current use of insulin (CMS/HCC) Expected: 02/06/2025 (Approximate), Expires: 02/06/2026 [facility] Comment on above: Expected: 02/06/2025 (Approximate), Expires: 02/06/2026 Start: 02-06-2025 End: 02-06-2026 Thyrotropin [Units/volume] in Serum or Plasma TSH Lab Routine Generalized anxiety disorder ([facility]/HCC) Expected: 02/06/2025 (Approximate), Expires: 02/06/2026 [facility] Comment on above: Expected: 02/06/2025 (Approximate), Expires: 02/06/2026 Start: 02-06-2025 End: 02-06-2026 Urinalysis complete panel - Urine Urinalysis with reflex microscopic (clean catch) Lab Routine Primary hypertension (CMS/HCC) Type 2 diabetes mellitus without complication, without long-term current use of insulin (CMS/HCC) Expected: 02/06/2025 (Approximate), Expires: 02/06/2026 [facility] Comment on above: Expected: 02/06/2025 (Approximate), Expires: 02/06/2026 Start: 02-06-2025 End: 02-06-2025 Patient encounter procedure 02/06/2025 10:00 AM EDT Office Visit [facility] [address] [place] [phone] La Pack NP [address] [place] [id number] [facility] Start: 01-31-2025 End: 01-31-2025 Patient encounter procedure 01/31/2025 11:00 AM EDT Office Visit TIA MIRANDA [address] [place] [phone] Tashia Polk PA [address] [place] [address] TIA MIRANDA Start: 01-15-2025 Screening for malign ant neoplasm of breast Mammogram [facility] Start: 01-14-2025 End: 01-14-2025 Patient encounter procedure 01/14/2025 9:30 AM EST Office Visit [facility] [address] [place] [phone] Ian Soares MD [address] [place] [phone] Arrived [facility] Comment on above: Arrived Start: 01-11-2025 Urine screening for protein Diabetes: Urine Protein Screening [facility] Start: 12-20-2024 End: 12-20-2024 Patient encounter procedure 12/20/2024 10:00 AM EST Office Visit [facility] [address] [place] [phone] Daniel Cardoso, GREG [address] [place] [phone] [facility] Start: 12-14-2024 [facility] Start: 12-13-2024 Administration of prophylactic treatment [facility] Start: 12-13-2024 Referral to rehabilitation physician [facility] Start: 12-09-2024 [facility] Start: 12-09-2024 [facility] Start: 12-09-2024 Consultation [facility] Start: 12-09-2024 Hospital admission [facility] Start: 12-09-2024 Bacteria identified in Blood by Culture Blood Culture [facility] Start: 12-09-2024 Respiratory Ventilat ion, 24-96 Consecutive Hours Respiratory Ventilation, 24-96 Consecutive Hours [facility] Start: 11-27-2024 Pneumococcal Vaccine : 65+ Years (1 of 2 - PCV) Pneumococcal Vaccine: 65+ Years (1 of 2 - PCV) [facility] Comment on above: Postponed from 04/21 (Other Patient Reasons) Start: 10-10-2024 End: 10-10-2024 Patient encounter procedure 10/10/2024 9:20 AM EST [facility] [address] [place] [phone] Tashia Polk PA [address] [place] [address] [facility] Start: 09-20-2024 End: 09-20-2024 Patient encounter procedure [facility] Comment on above: Arrived Start: 07-18-2024 End: 07-18-2024 Patient encounter procedure [facility] Start: 07-15-2024 Influenza vaccination [facility] Start: 01-13-2024 Hemoglobin A1c measurement Diabetes: Hemoglobin A1C [facility] Start: 2018 Fall Risk Screening Fall Risk Screen ing [facility] Start: 2003 Administration of varicella zoster vaccine Zoster (Shingles) Vaccine (1 of 2) [facility] Start: 1972 DTaP,Tdap and Td Vaccines (1 - Tdap) DTaP,Tdap and Td Vaccines (1 - Tdap) [facility] Start: 1971 Adult BMI Screening Adult BMI Screen ing [facility] Start: 1971 Diabetic foot examination Diabetic Foot Exam [facility] Start: 1965 Depression Screening Depression Scre ening [facility] Start: 1965 Tobacco Screening Tobacco Screening [facility] Start: 1959 Pneumococcal Vaccine : 65+ Years (1 of 2 - PCV) Pneumococcal Vaccine: 65+ Years (1 of 2 - PCV) [facility] Start: 1953 Glaucoma screening Diabetic Op hthalmology Exam [facility] Start: 1953 Screening for malign ant neoplasm of colon [facility] Start: 1953 Statin Use: Diabetic Statin Use: Claudine derekic [facility] BLOOD CULTURE 2 BLOOD CULTURE 2 Lab Routine 12/09/2024 4:21 PM EST [facility] Patient referral [facility] Work Phone: Immunizations Immunization Date Immunization Notes Care Provider Keo carlson 12-31-2024 Pneumococcal Conjuga te PCV 20 La Pack [employer] NURSE Work Phone: [facility] 12-27-2024 SARS-COV-2 (COVID-19 ) vaccine, mRNA, spike protein, LNP, bivalent, preservative free, 30 mcg/0.3 mL dose, carolyn-sucrose formulation La Pack C[employer] TRANSITIONS NURSE Work Phone: [facility] 08-14-2023 Influenza, High-dose Seasonal, Quadrivalent, Preservative Free Daniel Cardoso CARE TRANSITIONS NURSE Work Phone: [facility] 08-14-2023 influenza virus vaccine, unspecified formulation Daniel Cardoso CARE TRANSITIONS NURSE Work Phone: [facility] Payers Date Payer Category Payer Medicaid [id number] 2024 Medicare [id number] 2024 Self-pay 2023 Medicare HMO [employer]ICARE [id number] 2021 Medicare (Managed Care) LINDA Ramirez [facility] [id number] 2021 Unknown [id number] 2016 Medicare [id number] 1959 Unknown [id number] 1953 Unknown [id number] [id number]. 593 1953 Unknown [id number] 2.16.840.1.842313.3.579.2. 593 1953 Unknown [id number] 2.16.840.1.891059.3.579.2. 593 1953 Unknown [id number] 2.16.840.1.891785.3.579.2. 727 1953 Unknown [id number] 2.16.840.1.230564.3.579.2. 727 1953 Unknown [id number] 2.16.840.1.916837.3.579.2. 732 1953 Unknown [id number] 2.16.840.1.336172.3.579.2. 1259 1953 Unknown [id number] 2.16.840.1.422835.3.579.2. 1259 1953 Unknown [id number] 2.16.840.1.220280.3.579.2. 1259 1953 Unknown [id number] 2.16.840.1.394931.3.579.2. 1259 1953 Unknown [id number] 2.16.840.1.255537.3.579.2. 1259 1953 Unknown [id number] 2.16.840.1.254067.3.579.2. 9 1953 Unknown [id number] 2.16.840.1.790075.3.579.2. 125 Unknown [id number] [id number]. 531 Social History Date Type Detail Facility Tobacco smoking status [facility] Start: 06-21-2024 End: 02-06-2025 Sex Assigned At Female [facility] Start: 06-21-2024 [facility] History of tobacco use Cigarette Smoker [facility] History of tobacco use Passive smoker [facility] Start: 11-29-2019 End: 06-21-2024 Tobacco use and exposure Smokeless tobacco non-user [facility] Start: 06-21-2024 End: 02-06-2025 Alcoholic beverage intake Lifetime non-drinker (finding) [facility] Start: 06-21-2024 End: 02-06-2025 History of Social function [facility] Start: 10-17-2023 Alcohol Comment Caffeine: 2-3 cups per day [facility] Start: 1955 Sex assigned at Not on file [facility] Start: 12-13-2024 [facility] Start: 12-14-2024 End: 01-04-2025 Sex Female (finding) [facility] Start: 1955 Sex Assigned At Female F [facility] Start: 11-29-2019 End: 01-04-2025 Tobacco smoking status [facility] Ex-smoker [facility] History of tobacco use Current smoker [facility] Start: 02-19-2021 Alcoholic beverage intake Current non-drinker of alcohol (finding) [facility]care [facility] Medical Equipment Procedure Code Equipment Code Equipment Origin al Text Equipment Identifier Dates [id number] Start: 11-21-2023 End: 11-20-2024 1 each in the morning. [id number] Start: 11-21-2023 End: 11-20-2024 1 each by In Vit ro route Daily [id number] Start: 01-30-2025 End: 01-30-2026 Goals Date Patient Goal Desired Activity /State Functional Status Date Assessment Result Facility 12-14-2024 Functional status Patient at Baseline [facility] Work Phone: Mental Status Date Assessment Result Facility 12-14-2024 Cognitive function Cognitive Sta tus Patient at Baseline [facility] Work Phone: Clinical Notes 09-11-2024 to [...] compliance problems. There is no history of CAD/HI. Diabetes She presents for her follow-up diabetic [...] being taken. She does not see a fancy needleworker.Eye exam is current. Depression Visit Type: follow-up [...] breakfast, Do not crush, chew, or split. Lkbosgsoxoz-Inxwzflog-Ezrzoz (Trelegy Ellipta) 200-62.5-25 MCG/ACT aerosol powder 1 [...] List Items Addressed This Visit Other hyperlipidemia (CMS/[facility]) On statin therapy Check labs yearly and prn dose changes Relevant Orders Lipid panel 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 loss Takes supplement daily Check labs Relevant Orders CBC and differential Iron + transferrin + TIBC Ferritin Type 2 diabetes mellitus without complication, without long-term current use of insulin ([facility]) Check blood sugars daily, notify if <70 [...] Recurrent major depressive disorder, in full remission ([facility]) Takes sertraline daily Screening mammogram, encounter for Relevant Orders Bilateral screening mammogram COPD (chronic obstructive pulmonary disease) ([facility]) - Primary Wears oxygen at home Current meds: albuterol, trelegy Primary hypertension ([facility]) Please check blood pressure daily and record [...] D 25 hydroxy Acute hypoxic respiratory failure ([facility]) Wears oxygen at home Inhalers: trelegy, albuterol Cigarette nicotine dependence without complication Has not smoked since Great job Generalized anxiety disorder ([facility]) Takes ativan prn, and sertraline Relevant Orders TSH Associated Problem(s): Other hyperlipidemia ([facility]) On statin therapy Check labs yearly and prn dose changes Associated Problem(s): Generalized anxiety disorder ([facility]) Takes ativan prn, and sertraline Associated Problem(s): Recurrent major depressive disorder, in full remission ([facility]) Takes sertraline daily Associated Problem(s): Cigarette nicotine dependence without complication Has not smoked since Great job Associated Problem(s): 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 loss Takes supplement daily Check labs Associated Problem(s): Vitamin D deficiency Taking supplement 2,000 international units daily Check labs Associated Problem(s): Type 2 diabetes mellitus without complication, without long-term current use of insulin ([facility]) Check blood sugars daily, notify if <70 [...] arb, metformin, statin Associated Problem(s): Primary hypertension (CMS/HCC) Please check blood pressure daily and record DASH diet Limit caffeine Take medication as directed Contact office if chest pain, pressure, dizziness, shortness of breath, swelling legs Recommend slow position changes Current meds: losartan Associated Problem(s): COPD (chronic obstructive pulmonary disease) (CMS/HCC) Wears oxygen at home Current meds: albuterol, trelegy documented in this encounter [facility] 02-06-2025 Instructions La Pack NP - 02/06/2025 10:00 AM EDT Get labs completed fasting 8 hours Mammogram we will fax order to [facility], if you dont hear from them in 2 weeks, call [phone] Great job on quitting smoking documented in this encounter [facility] 01-23-2025 History of Presen t illness Narrative Associated Problem(s): Scalp laceration, sequela No s/s infection Neuro exam is normal I do not suspect her fever is related to this Suspect possible resp Associated Problem(s): COPD exacerbation (CMS/HCC) Will add augmentin, no cxr at this time, can cont albuterol prn and trelegy as directed Fluids, and encourage cough and deep breathing If worsening in sxs go to Er Images from the original note were not included. Julian Montaño is a 69 y.o. female presents with chief complaint of Suture / Staple Removal (head) HPI: [facility] ER on 01/14/25 for scalp lac, [...] breakfast, Do not crush, chew, or split. Tgwggqgpvoc-Vphihfmmv-Fyodjy (Trelegy Ellipta) 200-62.5-25 MCG/ACT aerosol powder 1 [...] of the risks of continued smoking: stroke, HI, all forms of cancer, lung disease, and [...] to this Suspect possible resp COPD exacerbation (CMS/HCC) Will add augmentin, no cxr at this time, can cont albuterol prn and trelegy as directed Fluids, and encourage cough and deep breathing If worsening in sxs go to Er Relevant Medications amoxicillin-clavulanate (Augmentin) 875-125 MG tablet Associated Problem(s): Cigarette nicotine dependence without complication The patient has been advised of the risks of continued smoking: stroke, HI, all forms of cancer, lung disease, and . Options for quitting smoking include: cold turkey, hypnosis, acupuncture, nicotine replacement meds (gum, lozenges, and patches), Buproprion, and Varenicline. At this time pt is encouraged to evaluate their goals for wanting to quit smoking, and reach out to provider when ready to start this process documented in this encounter [facility] 01-23-2025 Instructions La Pack NP - 01/23/2025 11:30 AM EDT May wash hair, Take augmentin atb as directed, fluids, encourage cough and deep breathing If worsening breathing go to ER documented in this encounter [facility] 01-14-2025 History of Presen t illness Narrative Associated Problem(s): Type 2 diabetes mellitus without complication, without long-term current use of insulin ([facility]) BS controlled and monitor. Stick to ADA diet and limit carbs. Associated Problem(s): Primary hypertension ([facility]) BP controlled and monitor PRN. Associated Problem(s): Influenza A Recent infection but improved and monitor. Associated Problem(s): COPD (chronic obstructive pulmonary disease) ([facility]) Breathing stable and continue inhalers. Use albuterol nebulized PRN. Script for new nebulizer machine to patient. Associated Problem(s): Acute hypoxic respiratory failure (CMS/HCC) SpO2 stable and wean oxygen as tolerated. Images from the original note were not included. Subjective Patient ID: Julian Montaño is a 69 y.o. female who presents for Follow-up (Hospital f/u), Sore Throat, and Earache (Right ear). Follow up from hospital and SNF. Patient found unresponsive at home and intubated by EMS. Brought to [facility] then transferred to [facility]. Admitted 12/09-12/14 and treated for influenza A [...] and monitor PRN. Acute hypoxic respiratory failure (CMS/[facility]) SpO2 stable and wean oxygen as tolerated. Influenza A - Primary Recent infection but improved and monitor. documented in this encounter [facility] 01-01-2025 History of Presen t illness Narrative Patient Name: Julian Montaño Date of : 1955 Date of Service: 01/01/2025 [place] [facility] [place] of Visit: Skilled Visit Subjective Julian Montaño is a 69 y.o. female seen today at [facility] facility for therapy visit. Julian is participating [...] Exam Vitals reviewed. Exam conducted with a desk reporter present (Priyank Ward MS3). Constitutional: General: She [...] / Plan 1. Acute hypoxic respiratory failure (CMS-[facility]) 2. Aspiration pneumonia, unspecified aspiration pneumonia type, unspecified laterality, unspecified part of lung (CMS-[facility]) 3. Chronic obstructive pulmonary disease, unspecified COPD type ([facility]) 4. Influenza A 5. Type 2 diabetes mellitus without complication, without long-term current use of insulin (CMS-[facility]) 6. Other abnormalities of gait and mobility [...] Stephen Macias DO [facility] History of Presen t illness Narrative Patient Name: Julian Montaño Date of : 1955 Date of Service: 12/28/2024 [place] [facility] [place] of Visit: Skilled Visit Subjective Julian Montaño is a 69 y.o. female seen today at [facility] facility for therapy visit. Julian is in therapy. She is slowly improving. Staff is needing a [id number] visit to document her oxygen in wheelchair [...] Exam Vitals reviewed. Exam conducted with a desk reporter present (Priyank Ward MS3). Constitutional: General: She [...] Stephen Macias DO documented in this encounter [employer] 12-25-2024 History of Presen t illness Narrative Patient Name: Julian Montaño Date of : 1955 Date of Service: 12/25/2024 [place] [facility] [place] of Visit: Skilled Visit Subjective Julian Montaño is a 69 y.o. female seen today at [facility] facility for therapy visit. Julian is participating [...] Exam Vitals reviewed. Exam conducted with a desk reporter present (Priyank Ward MS3). Constitutional: General: She [...] Stephen Macias DO documented in this encounter [employer] 12-18-2024 History of Presen t illness Narrative Patient Name: Julian Montaño Date of : 1955 Date of Service: 12/18/2024 [place] [facility] [place]: Admission H&P Subjective Julian Montaño is a 69 y.o. female seen today at [facility] for [facility] H&PLakeisha Gardiner presents [facility] following hospitalization at [facility]. She was diagnosed with acute hypoxic respiratory [...] Past Medical History: Diagnosis Date Acoustic neuroma ([facility]) Anemia Asymmetric SNHL (sensorineural hearing loss) Benign neoplasm of cranial nerve ([facility]) Bilateral cataracts Chronic bronchitis ([facility]) Chronic cough Constipation COPD (chronic obstructive pulmonary disease) ([facility] Depression Diabetes mellitus ([facility]) history of GERD (gastroesophageal reflux disease) Hemorrhoids History of brain tumor removed in 1997, came back 2018 Hyperlipidemia Hypertension Macular degeneration Osteoarthritis of hip Personal history of tobacco use Positive occult stool blood test Right acoustic neuroma ([facility]) Splenic sequestration Vitamin D deficiency Past Surgical [...] Exam Vitals reviewed. Exam conducted with a desk reporter present (Priyank Ward MS3). Constitutional: General: She [...] / Plan 1. Acute hypoxic respiratory failure ([facility]) 2. Chronic obstructive pulmonary disease, unspecified COPD type ([facility]) 3. Influenza A 4. Aspiration pneumonia, unspecified aspiration pneumonia type, unspecified laterality, unspecified part of lung ([facility]) 5. Depression, unspecified depression type 6. Cigarette smoker 7. Type 2 diabetes mellitus without complication, without long-term current use of insulin ([facility]) 8. Anxiety [facility]. Finish antibiotic, [...] Stephen Macias DO documented in this encounter [facility] 12-14-2024 Discharge summary Note Date/Time December 14, 2024 2:47pm [facility] [address] [place] [address] Discharge Summary Signed Patient: Julian Montaño MR#: [id number] : 1955 Acct:[id number] Age/Sex: 69 / F Adm Date: 5 Loc: Room: [address] [place] [address]: Daniel Garza MD Copies to: MD Daniel Cruz, CARE TRANSITIONS NURSE-C~ Providers Date of Discharge: 12/14/24 Discharging Provider: [...] as GERD and depression. Patient came to [place] ER after she was intubated by the [...] vomiting and no other concerns as per [place] documentation. Labs at [place] showed CBC with leukocytosis and left shift, [...] signs ofUTI. Her ABG was done at [place] ER showed pH of 7.16 as well as PaCO2 of 71.5. She was intubated by EMS, was given 100 mg of succinylcholine 60 mg of ketamine and then 50 mg of fentanyl and 5 mg of Versed as well as 6.4 mg of Elconin. Also they reached out to cardiology at [place] recommending again heparinization. EKG showed sinus tachycardia [...] started on bronchodilator steroid antibiotics and oseltamivir. Ceo & Founder was consulted who recommended continuing the same. [...] troponin likely in setting of type II HI. Follow-up echo showed normal ejection fraction of 65 to 70% with normal wall motion. PMR was consulted for possible inpatient rehab who recommended [facility] to [facility]. Patient was waiting for pre-CERT to [facility] facility and is finally approved and is being dischargedthere. Condition Condition at Discharge: Stable Time Spent with Patient Time spent providing/coordinating discharge services (# min): 38 Discharge Plan Discharge Plan Patient Disposition: [facility] Additional Instructions: [facility] to manage care: - Full code [...] with device INHALATION Follow Up: Daniel Cardoso, CARE TRANSITIONS NURSE-C [Primary Care Provider] - (Follow-up with your Primary Care Provider after discharge from [facility]) Exam Physical Exam Vital Signs: Temp [...] % (Auto) 84.6, Lymph % (Auto) 7.0, [place] % (Auto) 8.2, Eos % (Auto) 0.0, Baso % (Auto) 0.2, Nucleat RBC Rel Count 0.1, Neut # (Auto) 7.2, Lymph # (Auto) 0.6 L, [place] # (Auto) 0.7, Eos # (Auto) 0.0, [...] 141 Documented By: Daniel Garza MD 12/14/24 1443 Signed By: <Electronically signed by Daniel Garza MD> 12/14/24 1447 [facility] Work Phone: 1(881) 537-194401-31-2025 Progress note Author Daniel Garza [facility] Note Date/Time December 14, 2024 1 :58pm [facility] [address] [place] [address] Hospitalist Progress Note Signed Patient: Julian Montaño MR#: [id number] : 1955 Acct:[id number] Age/Sex: 69 / F Adm Date: 5 Loc: Room: [address] [place] [address] Type: ADM IN Attending Dr: Daniel Garza MD Copies to: ~ Date of Service: 12/14/2024 Subjective Subjective Narrative: This is a 69 y.o female with past medical history of COPD, dyslipidemia, hypertension, type 2 diabetes as well as GERD and depression. Patient came to [place] ER after she was intubated by the [...] vomiting and no other concerns as per [place] documentation. Labs at [place] showed CBC with leukocytosis and left shift, [...] signs ofUTI. Her ABG was done at [place] ER showed pH of 7.16 as well as PaCO2 of 71.5. She was intubated by EMS, was given 100 mg of succinylcholine 60 mg of ketamine and then 50 mg of fentanyl and 5 mg of Versed as well as 6.4 mg of Elconin. Also they reached out to cardiology at [place] recommending again heparinization. EKG showed sinus tachycardia [...] started on bronchodilator steroid antibiotics and oseltamivir. Ceo & Founder was consulted who recommended continuing the same. [...] Ml SUBCUT 12/12/25 21:59 Not Given ACHS [facility] Protocol Oseltamivir Phosphate 30 mg 12/13/24 21:00 [...] no water. Elevated troponin likely type 2 HI -Continue on steroids, bronchodilator, oseltamivir and antibiotics -ICU consult-appreciate recommendation -As per her daughter, pt does not drink alcohol or use drugs, She is a very active smoker -HSQ for DVT prophylaxis -Pantoprazole IV 40 mg daily for GI prophylaxis -Full code -consulted cardio-believes elevated troponin likely in setting of type II HI. Follow-up echo showed normal ejection fraction of 65 to 70% with normal wall motion -PMR was consulted who recommended discharge to [facility] facility. Full code Documented By: Daniel Garza MD 12/14/241355 Signed By: <Electronically signed by Daniel Garza MD> 12/14/24 9123 [facility] Work Phone: 1(455) 395-704001-31-2025 Progress note Author Cecilia Ruiz [facility] Note Date/Time December 14, 2024 1 :18pm [facility] [address] [place] [address] Pulmonology Progress Note Signed Patient: Julian Montaño MR#: [id number] : 1955 Acct:[id number] Age/Sex: 69 / F Adm Date: 5 Loc: Room: [address] [place] [address] Type: ADM IN Attending Dr: Daniel Garza [...] signed by Cecilia Ruiz MD> 12/14/24 1318 [facility] Work Phone: [phone]) 127-822001-31-[address] [address] Discharge Summary Signed Patient: Julian Montaño MR#: [id number] : 1955 Acct:[id number] Age/Sex: 69 / F Adm Date: 5 Loc: 4P Room: 8C4033-[address]: Daniel Garza MD Copies to: MD Daniel Cruz, CARE TRANSITIONS NURSE-C~ Providers Date of Discharge: 12/14/24 Discharging Provider: [...] as GERD and depression. Patient came to [place] ER after she was intubated by the [...] vomiting and no other concerns as per [place] documentation. Labs at [place] showed CBC with leukocytosis and left shift, [...] no signs ofUTI. Her ABG wasdone at [place] ER showed pH of 7.16 as well as PaCO2 of 71.5. She was intubated by EMS, was given 100 mg of succinylcholine 60 mg of ketamine and then 50 mg of fentanyl and 5 mg of Versed as well as 6.4 mg of Elconin. Also they reached out to cardiology at [place] recommending again heparinization. EKG showed sinus tachycardia [...] started on bronchodilator steroid antibiotics and oseltamivir. Ceo & Founder was consulted who recommended continuing the same. [...] troponin likely in setting of type II HI. Follow-up echo showed normal ejection fraction of 65 to 70% with normal wall motion. PMR was consulted for possible inpatient rehab who recommended [facility] to [facility]. Patient was waiting for pre-CERT to [facility] facility and is finally approved and isbeing dischargedthere. Condition Condition at Discharge: Stable Time Spent with Patient Time spent providing/coordinating discharge services (# min): 38 Discharge Plan Discharge Plan Patient Disposition: [facility] Additional Instructions: [facility] to manage care: - Full code [...] with device INHALATION Follow Up: Daniel Cardoso, CARE TRANSITIONS NURSE-C [Primary Care Provider] - (Follow-up with your Primary Care Provider after discharge from [facility]) Exam Physical Exam Vital Signs: Temp [...] % (Auto) 84.6, Lymph % (Auto) 7.0, [place] % (Auto) 8.2, Eos % (Auto) 0.0, Baso % (Auto) 0.2, Nucleat RBC Rel Count 0.1, Neut # (Auto) 7.2, Lymph # (Auto) 0.6 L, [place] # (Auto) 0.7, Eos # (Auto) 0.0, [...] Daniel Garza MD 12/14/241442 Signed By: 12/14/24 144 [facility]01-31-[address] [address] Hospitalist Progress Note Signed Patient: Julian Montaño MR#: [id number] : 1955 Acct:[id number] Age/Sex: 69 / F Adm Date: 5 Loc: 4 Room: [id number] Type: ADM IN Attending Dr: Daniel Garza MD Copies to: ~ Date of Service: 12/14/2024 Subjective Subjective Narrative: This is a 69 y.o female with past medical history of COPD, dyslipidemia, hypertension, type 2 diabetes as well as GERD and depression. Patient came to [place] ER after she was intubated by the [...] vomiting and no other concerns as per [place] documentation. Labs at [place] showed CBC with leukocytosis and left shift, [...] no signs ofUTI. Her ABG wasdone at [place] ER showed pH of 7.16 as well as PaCO2 of 71.5. She was intubated by EMS, was given 100 mg of succinylcholine 60 mg of ketamine and then 50 mg of fentanyl and 5 mg of Versed as well as 6.4 mg of Elconin. Also they reached out to cardiology at [place] recommending again heparinization. EKG showed sinus tachycardia [...] started on bronchodilator steroid antibiotics and oseltamivir. Ceo & Founder was consulted who recommended continuing the same. [...] no water. Elevated troponin likely type 2 HI -Continue on steroids, bronchodilator, oseltamivir and antibiotics -ICU consult-appreciate recommendation -As per her daughter, pt does not drink alcohol or use drugs, She is a very active smoker -HSQ for DVT prophylaxis -Pantoprazole IV 40 mg daily for GI prophylaxis -Full code -consulted cardio-believes elevated troponin likely in setting of type II HI. Follow-up echo showednormal ejection fraction of 65 to 70% with normal wall motion -PMR was consulted who recommended discharge to [facility] facility. Full code Documented By: Daniel Garza MD 12/14/24 1356 Signed By: 12/14/24 1358 [facility]01-31-2025 [place] [address] Pulmonology Progress Note Signed Patient: Julian Montaño MR#: [id number] : 1955 Acct:[id number] Age/Sex: 69 / F Adm Date: 5 Loc: Room: [address] [place] [address] Type: ADM IN Attending Dr: Daniel Garza [...] Ruiz MD 12/14/241316 Signed By: 12/14/24 1318 [facility]01-30-2025 Progress note Author Cecilia Ruiz [facility] Note Date/Time December 13, 2024 1 :53pm [facility] [address] [place] [address] Pulmonology Progress Note Signed Patient: Julian Montaño MR#: [id number] : 1955 Acct:[id number] Age/Sex: 69 / F Adm Date: 5 Loc: Room: [address] [place] [address] Type: ADM IN Attending Dr: Daniel Garza [...] steroid dose. Documented By: Cecilia Ruiz MD 12/13/241350 Signed By: <Electronically signed by Cecilia Ruiz MD> 12/13/24 2622 [facility] Work Phone: 1([phone]) 186-199101-30-2025 Progress note Author Daniel Garza [facility] Note Date/Time December 13, 2024 1 :41pm [facility] [address] [place] [address] Hospitalist Progress Note Signed Patient: Julian Montaño MR#: [id number] : 1955 Acct:[id number] Age/Sex: 69 / F Adm Date: 5 Loc: Room: [address] [place] [address] Type: ADM IN Attending Dr: Daniel Garza MD Copies to: ~ Date of Service: 12/13/2024 Subjective Subjective Narrative: This is a 69 y.o female with past medical history of COPD, dyslipidemia, hypertension, type 2 diabetes as well as GERD and depression. Patient came to [place] ER after she was intubated by the [...] vomiting and no other concerns as per [place] documentation. Labs at [place] showed CBC with leukocytosis and left shift, [...] signs ofUTI. Her ABG was done at [place] ER showed pH of 7.16 as well as PaCO2 of 71.5. She was intubated by EMS, was given 100 mg of succinylcholine 60 mg of ketamine and then 50 mg of fentanyl and 5 mg of Versed as well as 6.4 mg of Elconin. Also they reached out to cardiology at [place] recommending again heparinization. EKG showed sinus tachycardia [...] started on bronchodilator steroid antibiotics and oseltamivir. Ceo & Founder was consulted who recommended continuing the same. [...] Ml SUBCUT 12/12/25 21:59 Not Given ACHS [facility] Protocol Oseltamivir Phosphate 30 mg 12/13/24 21:00 [...] no water. Elevated troponin likely type 2 HI -Continue on steroids, bronchodilator, oseltamivir and antibiotics -ICU consult-appreciate recommendation -As per her daughter, pt does not drink alcohol or use drugs, She is a very active smoker -HSQ for DVT prophylaxis -Pantoprazole IV 40 mg daily for GI prophylaxis -Full code -consulted cardio-believes elevated troponin likely in setting of type II HI. Follow-up echo showed normal ejection fraction of 65 to 70% with normal wall motion -PMR was consulted who recommended discharge to [facility] facility. Full code Documented By: Daniel Garza MD 12/13/24 1337 Signed By: <Electronically signed by Daniel Garza MD> 12/13/24 1341 [facility] Work Phone: 1(464) 574-230001-30-2025 Consult note Author Dave Bazan [facility] Note Date/Time December 13, 2024 1 :29pm [facility] [address] [place] [address] Physiatry (Rehab) Consult Note Signed Patient: Julian Montaño MR#: [id number] : 1955 Acct:[id number] Age/Sex: 69 / F Adm Date: 5 Loc: Room: [address] [place] [address] Type: ADM IN Attending Dr: Daniel Garza MD Copies to: MD Daniel Cruz NP-C Christian D Siebenaler, MD~ HPI Consult Date: 12/13/24 Requesting Physician: Daniel Garza MD Primary Care Provider: SILVER Francois Consult Narrative HPI: Ms. Montaño is a 69 year old female with PMH COPD, dyslipidemia, hypertension, type2 diabetes as well as GERD and depression. The patient was transferred tO [facility] from [place] after being found unresponsive and being intubated [...] negative unless noted below or in HPI [facility] Medical History Depressed Acute hypoxic respiratory failure [...] % (Auto) 87.0 Lymph % (Auto) 6.4 [place] % (Auto) 6.5 Eos % (Auto) 0.0 Baso % (Auto) 0.1 Nucleat RBC Rel Count 0.1 Neut # (Auto) 9.3 H Lymph # (Auto) 0.7 L [place] # (Auto) 0.7 Eos # (Auto) 0.0 [...] MPV Neut % (Auto) Lymph % (Auto) [place] % (Auto) Eos % (Auto) Baso % (Auto) Nucleat RBC Rel Count Neut # (Auto) Lymph # (Auto) [place] # (Auto) Eos # (Auto) Baso # [...] this patient on discharge should be a [facility] facility. She does not meet inpatient rehab [...] chart, including current orders, allied health and integrity consultant notes, labs/imaging and performed barrow elements of exam and I formulated the plan of care and facilitated the medical decision making. I completed a substantive portion of this encounter, the medical decision making portion of this note in its entirety, including Allied health note review, nursing note review, integrity consultant note review, discussion with nursing and case management, and more than 50% of my time was spent on counseling and coordination of care, time spent 45 minutes Documented By: Dave Bazan MD [id number] Signed By: <Electronically signed by Dave Bazan MD> 12/13/24 1320 [facility] Work Phone: 1([phone]) 573-637301-30-2025 [place] [id number] Pulmonology Progress Note Signed Patient: Julian Montaño MR#: [id number] : 1955 Acct:[id number] Age/Sex: 69 / F Adm Date: 5 Loc: Room: [address] [place] [address] Type: ADM IN Attending Dr: Daniel Garza [...] MD 12/13/24 1351 Signed By: 12/13/24 1353 [facility]01-30-[address] [address] Hospitalist Progress Note Signed Patient: Julian Montaño MR#: [id number] : 1955 Acct:[id number] Age/Sex: 69 / F Adm Date: 5 Loc: Room: [address] [place] [address] Type: ADM IN Attending Dr: Daniel Garza MD Copies to: ~ Date of Service: 12/13/2024 Subjective Subjective Narrative: This is a 69 y.o female with past medical history of COPD, dyslipidemia, hypertension, type 2 diabetes as well as GERD and depression. Patient came to [place] ER after she was intubated by the [...] vomiting and no other concerns as per [place] documentation. Labs at [place] showed CBC with leukocytosis and left shift, [...] no signs ofUTI. Her ABG wasdone at [place] ER showed pH of 7.16 as well as PaCO2 of 71.5. She was intubated by EMS, was given 100 mg of succinylcholine 60 mg of ketamine and then 50 mg of fentanyl and 5 mg of Versed as well as 6.4 mg of Elconin. Also they reached out to cardiology at [place] recommending again heparinization. EKG showed sinus tachycardia [...] started on bronchodilator steroid antibiotics and oseltamivir. Ceo & Founder was consulted who recommended continuing the same. [...] Ml SUBCUT 12/12/25 21:59 Not Given ACHS [facility] Protocol Oseltamivir Phosphate 30 mg 12/13/24 21:00 [...] no water. Elevated troponin likely type 2 HI -Continue on steroids, bronchodilator, oseltamivir and antibiotics -ICU consult-appreciate recommendation -As per her daughter, pt does not drink alcohol or use drugs, She is a very active smoker -HSQ for DVT prophylaxis -Pantoprazole IV 40 mg daily for GI prophylaxis -Full code -consulted cardio-believes elevated troponin likely in setting of type II HI. Follow-up echo showednormal ejection fraction of 65 to 70% with normal wall motion -PMR was consulted who recommended discharge to [facility] facility. Full code Documented By: Daniel Garza MD 12/13/24 1337 Signed By: 12/13/24 1341 [facility]01-30-2025 [place] [address] Physiatry (Rehab) Consult Note Signed Patient: Julian Montaño MR#: [id number] : 1955 Acct:[id number] Age/Sex: 69 / F Adm Date: 5 Loc: 4 Room: [address] [place] [address] Type: ADM IN Attending Dr: Daniel Garza MD Copies to: MD Daniel Cruz NP-C Christian D Siebenaler, MD~ HPI Consult Date: 12/13/24 Requesting Physician: Daniel Garza MD Primary Care Provider: SILVER Francois Consult Narrative HPI: Ms. Montaño is a 69 year old female with PMH COPD, dyslipidemia, hypertension, type2 diabetes as well as GERD and depression. The patient was transferred tO [facility] from [place] after being found unresponsive and being intubated [...] IND at baseline. She has participated in [employer] Liaison therapy. Min A for ambulation 2'. I [...] negative unless noted below or in HPI [facility] Medical History Depressed Acute hypoxic respiratory failure [...] 62.5 mcg-vilant 25 mcg inhalat.powder (Trelegy Ellipta) [id number]/27/25 [History] losartan 50 mg tablet mg 12/10/24 [...] % (Auto) 87.0 Lymph % (Auto) 6.4 [place] % (Auto) 6.5 Eos % (Auto) 0.0 Baso % (Auto) 0.1 Nucleat RBC Rel Count 0.1 Neut # (Auto) 9.3 H Lymph # (Auto) 0.7 L [place] # (Auto) 0.7 Eos # (Auto) 0.0 [...] Albumin 3.8 Globulin 3.1 Albumin/Globulin Ratio 1.2 01/30/25 01/30/25 07:33 11:21 Corrected WBC Uncorrected WBC Count RBC Hgb Hct MCV MCH MCHC RDW Plt Count MPV Neut % (Auto) Lymph % (Auto) [place] % (Auto) Eos % (Auto) Baso % (Auto) Nucleat RBC Rel Count Neut # (Auto) Lymph # (Auto) [place] # (Auto) Eos # (Auto) Baso # [...] this patient on discharge should be a [facility] facility. She does not meet inpatient rehab [...] chart, including current orders, allied health and integrity consultant notes, labs/imaging and performed barrow elements of exam and I formulated the plan of care and facilitated the medical decision making. I completed a substantive portion of this encounter, the medical decision making portion of this note in its entirety, including Allied health note review, nursing note review, integrity consultant note review, discussion with nursing and case management, and more than 50% of my time was spent on counseling and coordination of care, time spent 45 minutes Documented By: Dave Bazan MD 1254 Signed By: 12/13/24 1329 [facility]01-29-2025 Progress note Author Daniel Garza [facility] Note Date/Time December 12, 2024 2 :45pm [facility] [address] [place] [address] Hospitalist Progress Note Signed Patient: Julian Montaño MR#: [id number] : 1955 Acct:[id number] Age/Sex: 69 / F Adm Date: 5 Loc: Room: [address] [place] [address] Type: ADM IN Attending Dr: Daniel Garza MD Copies to: ~ Date of Service: 12/12/2024 Subjective Subjective Narrative: This is a 69 y.o female with past medical history of COPD, dyslipidemia, hypertension, type 2 diabetes as well as GERD and depression. Patient came to [place] ER after she was intubated by the [...] vomiting and no other concerns as per [place] documentation. Labs at [place] showed CBC with leukocytosis and left shift, [...] signs ofUTI. Her ABG was done at [place] ER showed pH of 7.16 as well as PaCO2 of 71.5. She was intubated by EMS, was given 100 mg of succinylcholine 60 mg of ketamine and then 50 mg of fentanyl and 5 mg of Versed as well as 6.4 mg of Elconin. Also they reached out to cardiology at [place] recommending again heparinization. EKG showed sinus tachycardia [...] started on bronchodilator steroid antibiotics and oseltamivir. Ceo & Founder was consulted who recommended continuing the same. [...] LARS Sodium Chloride 10 ml 12/09/24 22:08 01/29/25 08:49 Sodium Chloride 0.9 % 10 Ml [...] no water. Elevated troponin likely type 2 HI -Okay to be transferred out of ICU. -Continue on steroids, bronchodilator, oseltamivir and antibiotics -ICU consult-appreciate recommendation -As per her daughter, pt does not drink alcohol or use drugs, She is a very active smoker -HSQ for DVT prophylaxis -Pantoprazole IV 40 mg daily for GI prophylaxis -Full code -consulted cardio Documented By: Daniel Garza MD 12/12/241442 Signed By: <Electronically signed by Daniel Garza MD> 12/12/24 1445 [facility] Work Phone: 1(690) 472-807501-29-2025 [place] [address] Hospitalist Progress Note Signed Patient: Julian Montaño MR#: [id number] : 1955 Acct:[id number] Age/Sex: 69 / F Adm Date: 5 Loc: Room: [address] [place] [address] Type: ADM IN Attending Dr: Daniel Garza MD Copies to: ~ Date of Service: 12/12/2024 Subjective Subjective Narrative: This is a 69 y.o female with past medical history of COPD, dyslipidemia, hypertension, type 2 diabetes as well as GERD and depression. Patient came to [place] ER after she was intubated by the [...] vomiting and no other concerns as per [place] documentation. Labs at [place] showed CBC with leukocytosis and left shift, [...] no signs ofUTI. Her ABG wasdone at [place] ER showed pH of 7.16 as well as PaCO2 of 71.5. She was intubated by EMS, was given 100 mg of succinylcholine 60 mg of ketamine and then 50 mg of fentanyl and 5 mg of Versed as well as 6.4 mg of Elconin. Also they reached out to cardiology at [place] recommending again heparinization. EKG showed sinus tachycardia [...] started on bronchodilator steroid antibiotics and oseltamivir. Ceo [employer] Founder was consulted who recommended continuing the same. [...] no water. Elevated troponin likely type 2 HI -Okay to be transferred out of ICU. -Continue on steroids, bronchodilator, oseltamivir and antibiotics -ICU consult-appreciate recommendation -As per her daughter, pt does not drink alcohol or use drugs, She is a very active smoker -HSQ for DVT prophylaxis -Pantoprazole IV 40 mg daily for GI prophylaxis -Full code -consulted cardio Documented By: Daniel Garza MD 12/12/241442 Signed By: 12/12/24 1445 [facility]01-29-2025 Progress note Author Cecilia Ruiz [facility] Note Date/Time December 12, 2024 1 1:35am [facility] [address] [place] [address] Pulmonology Progress Note Signed Patient: Julian Montaño MR#: [id number] : 1955 Acct:[id number] Age/Sex: 69 / F Adm Date: 5 Loc: Room: [address] [place] [address] Type: ADM IN Attending Dr: Daniel Garza [...] today Documented By: Cecilia Ruiz MD 12/12/24 113 Signed By: <Electronically signed by Cecilia Ruiz MD> 12/12/24 1135 [facility] Work Phone: 1(168) 146-409801-29-2025 [place] [id number] Pulmonology Progress Note Signed Patient: Julian Montaño MR#: [id number] : 1955 Acct:[id number] Age/Sex: 69 / F Adm Date: 5 Loc: Room: [address] [place] [address] Type: ADM IN Attending Dr: Daniel Garza [...] Ruiz MD 12/12/241132 Signed By: 12/12/24 1135 [facility]01-28-2025 Progress note Author Cecilia Ruiz [facility] Note Date/Time December 11, 2024 2 :49pm [facility] [address] [place] [address] Pulmonology Progress Note Signed Patient: Julian Montaño MR#: [id number] : 1955 Acct:[id number] Age/Sex: 69 / F Adm Date: 5 Loc: Room: [address] [place] [address] Type: ADM IN Attending Dr: Daniel Garza [...] signed by Cecilia Ruiz MD> 12/11/24 1449 [facility] Work Phone: 1(486) 871-518601-28-2025 Progress note Author Daniel Garza [facility] Note Date/Time December 11, 2024 2 :43pm [facility] [address] [place] [address] Hospitalist Progress Note Signed Patient: Julian Montaño MR#: [id number] : 1955 Acct:[id number] Age/Sex: 69 / F Adm Date: 5 Loc: Room: [address] [place] [address] Type: ADM IN Attending Dr: Daniel Garza MD Copies to: ~ Date of Service: 12/11/2024 Subjective Subjective Narrative: This is a 69 y.o female with past medical history of COPD, dyslipidemia, hypertension, type 2 diabetes as well as GERD and depression. Patient came to [place] ER after she was intubated by the [...] vomiting and no other concerns as per [place] documentation. Labs at [place] showed CBC with leukocytosis and left shift, [...] signs ofUTI. Her ABG was done at [place] ER showed pH of 7.16 as well as PaCO2 of 71.5. She was intubated by EMS, was given 100 mg of succinylcholine 60 mg of ketamine and then 50 mg of fentanyl and 5 mg of Versed as well as 6.4 mg of Elconin. Also they reached out to cardiology at [place] recommending again heparinization. EKG showed sinus tachycardia [...] started on bronchodilator steroid antibiotics and oseltamivir. Ceo [employer] Founder was consulted who recommended continuing the same. [...] no water. Elevated troponin likely type 2 HI -Continue to admit in ICU -Continue on [...] signed by Daniel Garza MD> 12/11/24 1443 [facility] Work Phone: 1(126) 560-147601-28-2025 [place] [address] Pulmonology Progress Note Signed Patient: Julian Montaño MR#: [id number] : 1955 Acct:[id number] Age/Sex: 69 / F Adm Date: 5 Loc: Room: [address] [place] [address] Type: ADM IN Attending Dr: Daniel Garza [...] Ruiz MD 12/11/241445 Signed By: 12/11/24 1449 [facility]01-28-2025 [place] [address] Hospitalist Progress Note Signed Patient: Julian Montaño MR#: [id number] : 1955 Acct:[id number] Age/Sex: 69 / F Adm Date: 5 Loc: Room: [address] [place] [address] Type: ADM IN Attending Dr: Daniel Garza MD Copies to: ~ Date of Service: 12/11/2024 Subjective Subjective Narrative: This is a 69 y.o female with past medical history of COPD, dyslipidemia, hypertension, type 2 diabetes as well as GERD and depression. Patient came to [place] ER after she was intubated by the [...] vomiting and no other concerns as per [place] documentation. Labs at [place] showed CBC with leukocytosis and left shift, [...] no signs ofUTI. Her ABG wasdone at [place] ER showed pH of 7.16 as well as PaCO2 of 71.5. She was intubated by EMS, was given 100 mg of succinylcholine 60 mg of ketamine and then 50 mg of fentanyl and 5 mg of Versed as well as 6.4 mg of Elconin. Also they reached out to cardiology at [place] recommending again heparinization. EKG showed sinus tachycardia [...] started on bronchodilator steroid antibiotics and oseltamivir. Ceo [employer] Founder was consulted who recommended continuing the same. [...] no water. Elevated troponin likely type 2 HI -Continue to admit in ICU -Continue on [...] Garza MD 12/11/241430 Signed By: 12/11/24 1443 [facility]01-28-2025 Consult note Author Krissy Cortez [facility] Note Date/Time December 10, 2024 1 0:30pm [facility] [address] [place], [place] [id number] Cardiology Consult Note Signed Patient: Julian Montaño MR#: [id number] : 1955 Acct:[id number] Age/Sex: 69 / F Adm Date: 5 Loc: Room: [address] [place] [address] Type: ADM IN Attending Dr: Daniel Garza [...] who was transferred to our facility from [place] last night. Per prior documentation, the patient arrived to [place] ER after being intubated by EMS. She was reportedly found unresponsive by her boyfriend (unknown downtime) and was not responding. Additionally, prior documentation reveals that family was noting the patient complaining of shortness of breath for 2 days prior to arrival in the emergency department. [facility] labs revealed a leukocytosis, hemoglobin of 10.6, [...] of Systems Unobtainable due to endotracheal tube [facility] Medical History (Updated 12/10/24 @ 15:52 by [...] H Lymph # (Auto) N/A 0.2 L [place] # (Auto) N/A 0.5 Eos # (Auto) [...] recheck about 9 hours later -EKG from [place] reviewed and shows sinus tachycardia with right bundle branch block without evidence of ischemic changes -I believe the elevated troponins indicative of a type II HI and have low suspicion for type I HI, however will obtain echocardiogram for further evaluation [...] agree with the resident's note. Type II HI in the setting of acute hypoxic respiratory failure. ECHO shows normal LVEF 65-70% with normal wall motion. Can consider stress MPI as outpatient once recovered from acute resp issues. Cardiology will see again as needed. = Documented By: Krissy Cortez MD 12/10/24 1020 Signed By: <Electronically signed by Krissy Cortez MD> 12/10/242229 <Electronically signed by DO DEVEN Butler> 12/10/24 1553 [facility] Work Phone: 1(673) 298-722201-27-2025 [place] [id number] Cardiology Consult Note Signed Patient: Julian Montaño MR#: [id number] : 1955 Acct:[id number] Age/Sex: 69 / F Adm Date: 5 Loc: 4C Room: 5J9336-7 Type: ADM IN Attending Dr: Daniel Garza MD Copies to: MD Daniel Cruz NP-C Smuan Butler DO, RES Linda Njoroge, MD~ Cardiology HPI History of Present Illness [...] who was transferred to our facility from [place] lastnight. Per prior documentation, the patient arrived to [place] ER after being intubated by EMS. She was reportedly found unresponsive by her boyfriend (unknown downtime) and was not responding. Additionally, prior documentation reveals that family was noting the patient complaining of shortness ofbreath for 2 days prior to arrival in the emergency department. [facility] labs revealed a leukocytosis, hemoglobin of 10.6, [...] 62.5 mcg-vilant 25 mcg inhalat.powder (Trelegy Ellipta) [id number]/27/25 [History] losartan 50 mg tablet mg 12/10/24 [...] H Lymph # (Auto) N/A 0.2 L [place] # (Auto) N/A 0.5 Eos # (Auto) [...] recheck about 9 hours later -EKG from [place] reviewed and shows sinus tachycardia with right bundle branch block without evidence of ischemic changes -I believe the elevated troponins indicative of a type II HI and have low suspicion for type I HI, however will obtain echocardiogram for further evaluation [...] agree with the resident's note. Type II HI in the setting of acute hypoxic respiratory failure. ECHO shows normal LVEF 65-70% with normal wall motion. Can consider stress MPI as outpatient once recovered from acute resp issues. Cardiology will see again as needed. = Documented By: Krissy Cortez MD 12/10/24 1020 Signed By: 12/10/24 2230 12/10/24 1554 [facility]01-27-2025 Progress note Author Daniel Garza [facility] Note Date/Time December 10, 2024 8 :26pm [facility] [address] [place] [address] Hospitalist Progress Note Signed Patient: Julian Montaño MR#: [id number] : 1955 Acct:[id number] Age/Sex: 69 / F Adm Date: 5 Loc: Room: [address] [place] [address] Type: ADM IN Attending Dr: Daniel Garza MD Copies to: ~ Date of Service: 12/10/2024 Subjective Subjective Narrative: This is a 69 y.o female that appears from the medication reconciliation [place], patient appears to have past medical history of COPD, dyslipidemia, hypertension, type 2 diabetes as well as GERD and depression. Patient came to [place] ER after she was intubated by the [...] vomiting and no other concerns as per [place] documentation. Labs at [place] showed CBC with leukocytosis and left shift, [...] signs ofUTI. Her ABG was done at [place] ER showed pH of 7.16 as well as PaCO2 of 71.5. She was intubated by EMS, was given 100 mg of succinylcholine 60 mg of ketamine and then 50 mg of fentanyl and 5 mg of Versed as well as 6.4 mg of Elconin. Also they reached out to cardiology at [place] recommending again heparinization. EKG showed sinus tachycardia [...] no water. Elevated troponin likely type 2 HI -Continue to admit in ICU -Continue on [...] elevated troponin in setting of type II HI. Plan to obtain echo Documented By: Daniel Garza MD 12/10/242020 Signed By: <Electronically signed by Daniel Garza MD> 12/10/242025 [facility] Work Phone: 1(808) 696-599801-27-2025 [place] [id number] Hospitalist Progress Note Signed Patient: Julian Montaño MR#: [id number] : 1955 Acct:[id number] Age/Sex: 69 / F Adm Date: 5 Loc: Room: [address] [place] [address] Type: ADM IN Attending Dr: Daniel Garza MD Copies to: ~ Date of Service: 12/10/2024 Subjective Subjective Narrative: This is a 69 y.o female that appears from the medication reconciliation [place], patient appears to have past medical history of COPD, dyslipidemia, hypertension, type 2 diabetes as well as GERD anddepression. Patient came to [place] ER after she was intubated by the [...] vomiting and no other concerns as per [place] documentation. Labs at [place] showed CBC with leukocytosis and left shift, [...] no signs ofUTI. Her ABG wasdone at [place] ER showed pH of 7.16 as well as PaCO2 of 71.5. She was intubated by EMS, was given 100 mg of succinylcholine 60 mg of ketamine and then 50 mg of fentanyl and 5 mg of Versed as well as 6.4 mg of Elconin. Also they reached out to cardiology at [place] recommending again heparinization. EKG showed sinus tachycardia [...] no water. Elevated troponin likely type 2 HI -Continue to admit in ICU -Continue on [...] elevated troponin in setting of type II HI. Plan to obtain echo Documented By: Daniel Garza MD 12/10/242020 Signed By: 12/10/242025 [facility]01-27-2025 Consult note Author Cecilia Ruiz [facility] Note Date/Time December 10, 2024 4 :32pm [facility] [address] [place] [address] Pulmonology Consult Note Signed Patient: Julian Montaño MR#: [id number] : 1955 Acct:[id number] Age/Sex: 69 / F Adm Date: 5 Loc: Room: [address] [place] [address] Type: ADM IN Attending Dr: Daniel Garza MD Copies to: Daniel KaylaMD Cecilia ruano MD Brittany N Fitzpatrick, GREG-C~ HPI Date/Time [...] well as GERD and depression, presented to [facility] after she was found unresponsive by her [...] of Systems Unobtainable due to endotracheal tube [facility] Medical History (Updated 12/10/24 @ 15:52 by [...] nondistended. Extremities: No edema. Skin: No lesions [employer]: Arouses to stimuli and follows simple commands. [...] signed by Cecilia Ruiz MD> 12/10/24 1632 [facility] Work Phone: 1(998) 867-829901-27-[address] [address] Pulmonology Consult Note Signed Patient: Julian Montaño MR#: [id number] : 1955 Acct:[id number] Age/Sex: 69 / F Adm Date: 5 Loc: Room: [address] [place] [address] Type: ADM IN Attending Dr: Daniel Garza [...] well as GERD and depression, presented to [facility] after she was found unresponsive by her [...] of Systems Unobtainable due to endotracheal tube [facility] Medical History (Updated 12/10/24 @ 15:52 by [...] nondistended. Extremities: No edema. Skin: No lesions [employer]: Arouses to stimuli and follows simple commands. [...] Ruiz MD 12/10/241624 Signed By: 12/10/24 1632 [facility]01-26-2025 Evaluation note* Diagnosis Onset Date Resolution Status Admit Date Acute hypoxic respiratory failure acute December 09 9:05pm Aspiration pneumonia acute Joe lior 2024 9:05pm COPD exacerbation acute December 09, [...] 2024 9:05pm Tobacco abuse acute November 9:05pm [facility] Work Phone: 1(304) 434-276001-26-2025 Evaluation note* Diagnosis Onset Date Resolution Status [...] 9:05pm Hypotension resolved December 09, 2024 9:05pm [facility] Work Phone: 1(133) 624-791811-07-2024 History of Present illness Narrative* Daniel Cardoso, GREG - 09/20/2024 10:53 AM ESTAssociated Problem(s): Type 2 diabetes mellitus without complication, without long-term current useof insulin ([facility]) Currently taking Metformin 500mg Most recent labs: [...] MODERATE RISK >11.0 HIGH RISK Resulting Agency [facility] DMII: Most recent labs: hemoglobin A1C 6.0% [...] List Items Addressed This Visit Other hyperlipidemia ([facility]) Currently taking Atorvastatin 40mg Denies any myalgias. Continue current regimen. Type 2 diabetes mellitus without complication, without long-term current use of insulin ([facility]) Currently taking Metformin 500mg Most recent labs: [...] Asthma with COPD (chronic obstructive pulmonary disease) ([facility]) Currently taking Trelegy Daily and Albuterol PRN No exacerbations recently Reports using rescue inhaler 3 times per month. Continue current regimen Primary hypertension ([facility]) - Primary Currently taking Losartan-hydrochlorothiazide 50/12.5mg Checks [...] (Augmentin) 875-125 MG tablet documented in this encounterMin[facility] [id number] Instructions* Patient Instructions* Daniel Cardoso NP - [...] if you need anything! documented in this [facility]10-29-2024 Telephone encounter Note* Telephone Encounter - Sabian Black MA - 09/11/2024 3:30 PM EDT Pt requesting a refill on her mobic, ANETTE:06/21/2024 NOV:09/20/2024 [facility] [id number] Miscellaneous Notes* Telephone Encounter - Sabina Black MA - 09/11/2024 3:30 PM EDT Pt requesting a refill on her mobic, ANETTE:06/21/2024 NOV:09/20/[address] [facility] No data available for this section [facility]* Diagnosis 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 loss- Primary Iron deficiency anemia secondary to blood loss (chronic) Current smoker Other hyperlipidemia (CMS/HCC) Moderate persistent asthma without complication ([facility]/HCC) Type 2 diabetes mellitus without complication, without long-term current use of insulin ([facility]) Screening mammogram, encounter for Recurrent major depressive disorder, in full remission ([facility]) Asthma with COPD (chronic obstructive pulmonary disease) ([facility])- Primary 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 [...] complication, without long-term current use of insulin ([facility]/HCC) Vitamin D deficiency Dermoid cyst of right ear Tobacco dependency Tobacco use disorder Asthma with COPD (chronic obstructive pulmonary disease) (CMS/HCC) documented in this encounter [facility] HealthcareEvaluation note* Diagnosis 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 loss- Primary Iron deficiency anemia secondary to blood loss (chronic) Current smoker Other hyperlipidemia (CMS/HCC) Moderate persistent asthma without complication (CMS/HCC) Type 2 diabetes mellitus without complication, without long-term current use of insulin ([facility]) Screening mammogram, encounter for Recurrent major depressive disorder, in full remission ([facility]) Asthma with COPD (chronic obstructive pulmonary disease) ([facility]/HCC)- Primary 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) Type 2 diabetes mellitus without complication, without long-term current use of insulin ([facility]/HCC) Primary hypertension (CMS/HCC) Unspecified essential hypertension Asthma with COPD (chronic obstructive pulmonary disease) ([facility]/HCC)- Primary Primary hypertension (CMS/HCC) Unspecified essential hypertension Type 2 diabetes mellitus without complication, without long-term current use of insulin (CMS/HCC) Primary hypertension ([facility]/HCC)- Primary Unspecified essential hypertension Asthma with COPD (chronic obstructive pulmonary disease) ([facility]/HCC) 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) Other hyperlipidemia (CMS/HCC) Type 2 diabetes mellitus without complication, without long-term current use of insulin ([facility]/HCC) Vitamin D deficiency Dermoid cyst of right ear Tobacco dependency Tobacco use disorder Type 2 diabetes mellitus without complications ([facility]/HCC) documented in this encounter [facility] HealthcareEvaluation note* Diagnosis 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 loss- Primary Iron deficiency anemia secondary to blood loss (chronic) Current smoker Other hyperlipidemia (CMS/HCC) Moderate persistent asthma without complication ([facility]/HCC) Type 2 diabetes mellitus without complication, without long-term current use of insulin ([facility]/HCC) Screening mammogram, encounter for Recurrent major depressive disorder, in full remission ([facility]/HCC) Asthma with COPD (chronic obstructive pulmonary [...] complication, without long-term current use of insulin ([facility]) Vitamin D deficiency Dermoid cyst of right ear Tobacco dependency Tobacco use disorder Hyperlipidemia, unspecified ([facility]) documented in this encounter [facility] HealthcareEvaluation note* Diagnosis 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 loss- Primary Iron deficiency anemia secondary to blood loss (chronic) Current smoker Other hyperlipidemia (CMS/HCC) Moderate persistent asthma without complication ([facility]/HCC) Type 2 diabetes mellitus without complication, without long-term current use of insulin ([facility]) Screening mammogram, encounter for Recurrent major depressive disorder, in full remission ([facility]/HCC) Asthma with COPD (chronic obstructive pulmonary disease) ([facility]/HCC)- Primary 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) Type 2 diabetes mellitus without complication, without long-term current use of insulin ([facility]/HCC) Primary hypertension (CMS/HCC) Unspecified essential hypertension [...] complication, without long-term current use of insulin (CMS/[facility]) Vitamin D deficiency Dermoid cyst of right ear Tobacco dependency Tobacco use disorder Other bursitis of elbow, left elbow documented in this encounter [facility]* Diagnosis 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 loss- Primary Iron deficiency anemia secondary to blood loss (chronic) Current smoker Other hyperlipidemia ([facility]/HCC) Moderate persistent asthma without complication ([facility]) Type 2 diabetes mellitus without complication, without long-term current use of insulin ([facility]) Screening mammogram, encounter for Recurrent major depressive disorder, in full remission ([facility]) Asthma with COPD (chronic obstructive pulmonary disease) ([facility])- Primary 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) Type 2 diabetes mellitus without complication, without long-term current use of insulin ([facility]) Primary hypertension ([facility]) Unspecified essential hypertension Asthma with COPD (chronic obstructive pulmonary disease) ([facility])- Primary Primary hypertension ([facility]) Unspecified essential hypertension Type 2 diabetes mellitus without complication, without long-term current use of insulin ([facility]) Primary hypertension ([facility])- Primary Unspecified essential hypertension Asthma with COPD (chronic obstructive pulmonary disease) ([facility]) 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) Other hyperlipidemia ([facility]) Type 2 diabetes mellitus without complication, without long-term current use of insulin ([facility]) Vitamin D deficiency Dermoid cyst of right ear Tobacco dependency Tobacco use disorder Primary hypertension ([facility])- Primary Unspecified essential hypertension Type 2 diabetes mellitus without complication, without long-term current use of insulin ([facility]) Other hyperlipidemia ([facility]) Asthma with COPD (chronic obstructive pulmonary disease) ([facility]) Non-recurrent acute serous otitis media of left ear documented in [facility] Diagnosis Other bursitis of elbow, left elbow documented in this [facility]* Diagnosis 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 loss- Primary Iron deficiency anemia secondary to blood loss (chronic) Current smoker Other hyperlipidemia ([facility]/HCC) Moderate persistent asthma without complication ([facility]) Type 2 diabetes mellitus without complication, without long-term current use of insulin ([facility]) Screening mammogram, encounter for Recurrent major depressive disorder, in full remission ([facility]) Asthma with COPD (chronic obstructive pulmonary disease) ([facility]/HCC)- Primary 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) Type 2 diabetes mellitus without complication, without long-term current use of insulin ([facility]/HCC) Primary hypertension ([facility]/HCC) Unspecified essential hypertension Asthma with COPD (chronic obstructive pulmonary disease) ([facility]/HCC)- Primary Primary hypertension ([facility]/HCC) Unspecified essential hypertension Type 2 diabetes mellitus without complication, without long-term current use of insulin ([facility]/HCC) Primary hypertension ([facility]/HCC)- Primary Unspecified essential hypertension Asthma with COPD (chronic obstructive pulmonary disease) ([facility]) 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) Other hyperlipidemia ([facility]) Type 2 diabetes mellitus without complication, without long-term current use of insulin ([facility] [place]) Vitamin D deficiency Dermoid cyst of right ear Tobacco dependency Tobacco use disorder Primary hypertension ([facility])- Primary Unspecified essential hypertension Type 2 diabetes mellitus without complication, without long-term current use of insulin ([facility]) Other hyperlipidemia ([facility]/HCC) Asthma with COPD (chronic obstructive pulmonary disease) ([facility]) Non-recurrent acute serous otitis media of left ear Gastro-esophageal reflux disease without esophagitis documented in this encounter [facility]* Diagnosis 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 loss- Primary Iron deficiency anemia secondary to blood loss (chronic) Current smoker Other hyperlipidemia ([facility]/HCC) Moderate persistent asthma without complication ([facility]) Type 2 diabetes mellitus without complication, without long-term current use of insulin ([facility]) Screening mammogram, encounter for Recurrent major depressive disorder, in full remission ([facility]) Asthma with COPD (chronic obstructive pulmonary disease) ([facility])- Primary 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) Type 2 diabetes mellitus without complication, without long-term current use of insulin ([facility]/HCC) Primary hypertension ([facility]/HCC) Unspecified essential hypertension Asthma with COPD (chronic obstructive pulmonary disease) ([facility])- Primary Primary hypertension ([facility]/HCC) Unspecified essential hypertension Type 2 diabetes mellitus without complication, without long-term current use of insulin ([facility]/HCC) Primary hypertension ([facility]/HCC)- Primary Unspecified essential hypertension Asthma with COPD (chronic obstructive pulmonary disease) ([facility] [place]) 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) Other hyperlipidemia ([facility]/HCC) Type 2 diabetes mellitus without complication, without long-term current use of insulin ([facility] [place]) Vitamin D deficiency Dermoid cyst of right ear Tobacco dependency Tobacco use disorder Primary hypertension ([facility]/HCC)- Primary Unspecified essential hypertension Type 2 diabetes mellitus without complication, without long-term current use of insulin ([facility]/HCC) Other hyperlipidemia ([facility]/HCC) Asthma with COPD (chronic obstructive pulmonary disease) ([facility] [place]) Non-recurrent acute serous otitis media of left ear Depression, unspecified ([facility]) documented [facility] [...] Diagnosis Type 2 diabetes mellitus without complications ([facility]) Hyperlipidemia, unspecified ([facility]/HCC) documented in this [facility]* Diagnosis Hyperlipidemia, unspecified ([facility]/HCC) Other bursitis of elbow, left elbow Depression, unspecified ([facility]) Type 2 diabetes mellitus without complications ([facility]) documented in this [facility]* Diagnosis 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 loss- Primary Iron deficiency anemia secondary to blood loss (chronic) Current smoker Other hyperlipidemia (CMS/HCC) Moderate persistent asthma without complication ([facility] [place] [facility]) Type 2 diabetes mellitus without complication, without long-term current use of insulin ([facility] [facility]) Screening mammogram, encounter for Recurrent major depressive disorder, in full remission ([facility]) Asthma with COPD (chronic obstructive pulmonary disease) ([facility] [place])- Primary 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) Type 2 diabetes mellitus without complication, without long-term current use of insulin ([facility] [place]) Primary hypertension ([facility]/HCC) Unspecified essential hypertension Asthma with COPD (chronic obstructive pulmonary disease) ([facility])- Primary Primary hypertension ([facility] [place]) Unspecified essential hypertension Type 2 diabetes mellitus without complication, without long-term current use of insulin ([facility] [place]) Primary hypertension ([facility] [place])- Primary Unspecified essential hypertension Asthma with COPD (chronic obstructive pulmonary disease) (CMS/HCC) 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) Other hyperlipidemia (CMS/HCC) Type 2 diabetes mellitus without complication, without long-term current use of insulin ([facility] [place]) Vitamin D deficiency Dermoid cyst of right ear Tobacco dependency Tobacco use disorder Primary hypertension ([facility]/HCC)- Primary Unspecified essential hypertension Type 2 diabetes mellitus without complication, without long-term current use of insulin ([facility]/HCC) Other hyperlipidemia ([facility]/HCC) Asthma with COPD (chronic obstructive pulmonary disease) ([facility]) Non-recurrent acute serous otitis media of left ear 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) documented in this encounter [facility] HealthcareEvaluation [facility]* Diagnosis 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 loss- Primary Iron deficiency anemia secondary to blood loss (chronic) Current smoker Other hyperlipidemia (CMS/HCC) Moderate persistent asthma without complication ([facility] [place] [place]) Type 2 diabetes mellitus without complication, without long-term current use of insulin ([facility]) Screening mammogram, encounter for Recurrent major depressive disorder, in full remission ([facility] [place] [place]) Asthma with COPD (chronic obstructive pulmonary disease) ([facility] [place])- Primary 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) Type 2 diabetes mellitus without complication, without long-term current use of insulin ([facility]/HCC) Primary hypertension ([facility]) Unspecified essential hypertension Asthma with COPD (chronic obstructive pulmonary disease) ([facility] [place])- Primary Primary hypertension ([facility] [place]) Unspecified essential hypertension Type 2 diabetes mellitus without complication, without long-term current use of insulin ([facility]/HCC) Primary hypertension ([facility]/HCC)- Primary Unspecified essential hypertension Asthma with COPD (chronic obstructive pulmonary disease) ([facility] [place]) 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) Other hyperlipidemia ([facility]/HCC) Type 2 diabetes mellitus without complication, without long-term current use of insulin ([facility]/HCC) Vitamin D deficiency Dermoid cyst of right ear Tobacco dependency Tobacco use disorder Primary hypertension ([facility]/HCC)- Primary Unspecified essential hypertension Type 2 diabetes mellitus without complication, without long-term current use of insulin ([facility]/HCC) Other hyperlipidemia ([facility]/HCC) Asthma with COPD (chronic obstructive pulmonary disease) ([facility]) Non-recurrent acute serous otitis media of left ear Asthma with COPD (chronic obstructive pulmonary disease) ([facility] [place] [place]) documented in this encounter [facility] HealthcareEvaluation note* Diagnosis 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 loss- Primary Iron deficiency anemia secondary to blood loss (chronic) Current smoker Other hyperlipidemia ([facility] [place] [place]) Moderate persistent asthma without complication ([facility] [place] [place]) Type 2 diabetes mellitus without complication, without long-term current use of insulin ([facility] [place]) Screening mammogram, encounter for Recurrent major depressive disorder, in full remission ([facility] [place]) Asthma with COPD (chronic obstructive pulmonary disease) ([facility] [place])- Primary 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) Type 2 diabetes mellitus without complication, without long-term current use of insulin ([facility] [place]) Primary hypertension ([facility] [place]) Unspecified essential hypertension Asthma with COPD (chronic obstructive pulmonary disease) ([facility] [place])- Primary Primary hypertension ([facility] [place]) Unspecified essential hypertension Type 2 diabetes mellitus without complication, without long-term current use of insulin ([facility] [place]) Primary hypertension ([facility] [place])- Primary Unspecified essential hypertension Asthma with COPD (chronic obstructive pulmonary disease) ([facility] [place]) 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) Other hyperlipidemia ([facility] [place] [place]) Type 2 diabetes mellitus without complication, without long-term current use of insulin ([facility] [place]) Vitamin D deficiency Dermoid cyst of right ear Tobacco dependency Tobacco use disorder Primary hypertension ([facility] [place])- Primary Unspecified essential hypertension Type 2 diabetes mellitus without complication, without long-term current use of insulin ([facility] [place]) Other hyperlipidemia ([facility] [place]) Asthma with COPD (chronic obstructive pulmonary disease) ([facility]) Non-recurrent acute serous otitis media of left ear 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) documented in this encounter [facility] HealthcareEvaluation [facility]* Diagnosis Acute hypoxic respiratory failure ([facility])- Primary Chronic obstructive pulmonary disease, unspecified COPD type ([facility]) Influenza A Influenza with other respiratory manifestations Aspiration pneumonia, unspecified aspiration pneumonia type, unspecified laterality, unspecified part of lung ([facility]) Depression, unspecified depression type Cigarette smoker Tobacco use disorder Type 2 diabetes mellitus without complication, without long-term current use of insulin ([facility]) Anxiety Anxiety state, unspecified [facility] Diagnosis Acute hypoxic respiratory failure ([facility]-HCC)- Primary Chronic obstructive pulmonary disease, unspecified COPD type ([facility]) Influenza A Influenza with other respiratory manifestations Other abnormalities of gait and mobility documented in this encounter [facility]* Diagnosis Acute hypoxic respiratory failure ([facility]-HCC)- Primary Aspiration pneumonia, unspecified aspiration pneumonia type, unspecified laterality, unspecified part of lung ([facility]) Chronic obstructive pulmonary disease, unspecified COPD type ([facility]) Influenza A Influenza with other respiratory manifestations Type 2 diabetes mellitus without complication, without long-term current use of insulin ([facility]) Other abnormalities of gait and mobility Anxiety Anxiety state, unspecified documented in this encounter [facility]* Diagnosis Chronic obstructive pulmonary disease, unspecified COPD type ([facility]-H[facility])- Primary Influenza A Influenza with other respiratory manifestations Other abnormalities of gait and mobility Anxiety Anxiety state, unspecified Cigarette smoker Tobacco use disorder documented in this encounter [facility]* Diagnosis 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 loss- Primary Iron deficiency anemia secondary to blood loss (chronic) Current smoker Other hyperlipidemia ([facility]) Moderate persistent asthma without complication ([facility]) Type 2 diabetes mellitus without complication, without long-term current use of insulin ([facility]) Screening mammogram, encounter for Recurrent major depressive disorder, in full remission ([facility]) Asthma with COPD (chronic obstructive pulmonary disease) ([facility])- Primary 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) Type 2 diabetes mellitus without complication, without long-term current use of insulin ([facility]) Primary hypertension ([facility]) Unspecified essential hypertension Asthma with COPD (chronic obstructive pulmonary disease) ([facility] [place])- Primary Primary hypertension ([facility] [place]) Unspecified essential hypertension Type 2 diabetes mellitus without complication, without long-term current use of insulin ([facility]) Primary hypertension ([facility] [place])- Primary Unspecified essential hypertension Asthma with COPD (chronic obstructive pulmonary disease) ([facility] [place]) 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) Other hyperlipidemia ([facility] [place]) Type 2 diabetes mellitus without complication, without long-term current use of insulin ([facility]) Vitamin D deficiency Dermoid cyst of right ear Tobacco dependency Tobacco use disorder Primary hypertension ([facility] [place])- Primary Unspecified essential hypertension Type 2 diabetes mellitus without complication, without long-term current use of insulin ([facility] [place]) Other hyperlipidemia ([facility]/HCC) Asthma with COPD (chronic obstructive pulmonary disease) ([facility]) Non-recurrent acute serous otitis media of left ear Influenza A- Primary Influenza with other respiratory manifestations Chronic obstructive pulmonary disease, unspecified COPD type ([facility]) Acute hypoxic respiratory failure ([facility]) Type 2 diabetes mellitus without complication, without long-term current use of insulin ([facility]) Primary hypertension ([facility]) Unspecified essential hypertension Benign neoplasm of cranial nerves (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 M[place]) documented in this encounter [facility] HealthcareEvaluation note* Diagnosis 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 loss- Primary Iron deficiency anemia secondary to blood loss (chronic) Current smoker Other hyperlipidemia ([facility]) Moderate persistent asthma without complication ([facility]) Type 2 diabetes mellitus without complication, without long-term current use of insulin ([facility]) Screening mammogram, encounter for Recurrent major depressive disorder, in full remission ([facility]) Asthma with COPD (chronic obstructive pulmonary disease) ([facility])- Primary 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) Type 2 diabetes mellitus without complication, without long-term current use of insulin ([facility]) Primary hypertension ([facility]) Unspecified essential hypertension Asthma with COPD (chronic obstructive pulmonary disease) ([facility])- Primary Primary hypertension ([facility]) Unspecified essential hypertension Type 2 diabetes mellitus without complication, without long-term current use of insulin ([facility]) Primary hypertension ([facility])- Primary Unspecified essential hypertension Asthma with COPD (chronic obstructive pulmonary disease) ([facility]) 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) Other hyperlipidemia ([facility]) Type 2 diabetes mellitus without complication, without long-term current use of insulin ([facility]) Vitamin D deficiency Dermoid cyst of right ear Tobacco dependency Tobacco use disorder Primary hypertension ([facility])- Primary Unspecified essential hypertension Type 2 diabetes mellitus without complication, without long-term current use of insulin ([facility]) Other hyperlipidemia ([facility]) Asthma with COPD (chronic obstructive pulmonary disease) ([facility]) Non-recurrent acute serous otitis media of left ear Influenza A- Primary Influenza with other respiratory manifestations Chronic obstructive pulmonary disease, unspecified COPD type (CMS/HCC) Acute hypoxic respiratory failure ([facility]/HCC) Type 2 diabetes mellitus without complication, without long-term current use of insulin ([facility]) Primary hypertension ([facility]/HCC) Unspecified essential hypertension Benign neoplasm of cranial nerves (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) Scalp laceration, sequela- Primary Cigarette nicotine dependence without complication COPD exacerbation ([facility]) Obstructive chronic bronchitis with exacerbation documented in this encounter [facility] HealthcareEvaluation note* Diagnosis 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 loss- Primary Iron deficiency anemia secondary to blood loss (chronic) Current smoker Other hyperlipidemia (CMS/HCC) Moderate persistent asthma without complication ([facility]) Type 2 diabetes mellitus without complication, without long-term current use of insulin ([facility]) Screening mammogram, encounter for Recurrent major depressive disorder, in full remission ([facility]) Asthma with COPD (chronic obstructive pulmonary disease) ([facility])- Primary 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) Type 2 diabetes mellitus without complication, without long-term current use of insulin ([facility]/HCC) Primary hypertension ([facility]/HCC) Unspecified essential hypertension Asthma with COPD (chronic obstructive pulmonary disease) ([facility]/HCC)- Primary Primary hypertension ([facility]) Unspecified essential hypertension Type 2 diabetes mellitus without complication, without long-term current use of insulin ([facility]/HCC) Primary hypertension ([facility]/HCC)- Primary Unspecified essential hypertension Asthma with COPD (chronic obstructive pulmonary disease) ([facility]) 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) Other hyperlipidemia ([facility]/HCC) Type 2 diabetes mellitus without complication, without long-term current use of insulin ([facility]/HCC) Vitamin D deficiency Dermoid cyst of right ear Tobacco dependency Tobacco use disorder Primary hypertension ([facility]/HCC)- Primary Unspecified essential hypertension Type 2 diabetes mellitus without complication, without long-term current use of insulin ([facility]/HCC) Other hyperlipidemia (CMS/HCC) Asthma with COPD (chronic obstructive pulmonary disease) ([facility]/HCC) Non-recurrent acute serous otitis media of left ear Influenza A- Primary Influenza with other respiratory manifestations Chronic obstructive pulmonary disease, unspecified COPD type (CMS/HCC) Acute hypoxic respiratory failure ([facility]) Type 2 diabetes mellitus without complication, without long-term current use of insulin ([facility]) Primary hypertension ([facility]) Unspecified essential hypertension Benign neoplasm of cranial nerves (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) Scalp laceration, sequela- Primary Cigarette nicotine dependence without complication COPD exacerbation ([facility]) Obstructive chronic bronchitis with exacerbation Type 2 diabetes mellitus without complication, without long-term current use of insulin ([facility])- Primary Chronic obstructive pulmonary disease, unspecified COPD type ([facility]) Primary hypertension ([facility]) Unspecified essential hypertension Vitamin D deficiency 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) Cigarette nicotine dependence without complication Recurrent major depressive disorder, in full remission ([facility]) Generalized anxiety disorder ([facility]) Generalized anxiety disorder Screening mammogram, encounter for Other hyperlipidemia ([facility]) Acute hypoxic respiratory failure ([facility]) documented in this encounter [facility] HealthcareEvaluation note* Diagnosis 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 loss- Primary Iron deficiency anemia secondary to blood loss (chronic) Current smoker Other hyperlipidemia Moderate persistent asthma without complication ([facility]) Type 2 diabetes mellitus without complication, without long-term current use of insulin Screening mammogram, encounter for Recurrent major depressive disorder, in full remission ([facility]) Asthma with COPD (chronic obstructive pulmonary disease) ([facility])- Primary 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) Type 2 diabetes mellitus without complication, without long-term current use of insulin Primary hypertension ([facility]) Unspecified essential hypertension Asthma with COPD (chronic obstructive pulmonary disease) ([facility])- Primary Primary hypertension ([facility]) Unspecified essential hypertension Type 2 diabetes mellitus without complication, without long-term current use of insulin Primary hypertension ([facility])- Primary Unspecified essential hypertension Asthma with COPD (chronic obstructive pulmonary disease) ([facility]) 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) Other hyperlipidemia Type 2 diabetes mellitus without complication, without long-term current use of insulin Vitamin D deficiency Dermoid cyst of right ear Tobacco dependency Tobacco use disorder Primary hypertension ([facility])- Primary Unspecified essential hypertension Type 2 diabetes mellitus without complication, without long-term current use of insulin Other hyperlipidemia Asthma with COPD (chronic obstructive pulmonary disease) ([facility]) Non-recurrent acute serous otitis media of left ear Influenza A- Primary Influenza with other respiratory manifestations Chronic obstructive pulmonary disease, unspecified COPD type ([facility]) Acute hypoxic respiratory failure ([facility]) Type 2 diabetes mellitus without complication, without long-term current use of insulin Primary hypertension ([facility]) Unspecified essential hypertension Benign neoplasm of cranial nerves (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) Scalp laceration, sequela- Primary Cigarette nicotine dependence without complication COPD exacerbation ([facility]) Obstructive chronic bronchitis with exacerbation Type 2 diabetes mellitus without complication, without long-term current use of insulin- Primary Chronic obstructive pulmonary disease, unspecified COPD type ([facility]) Primary hypertension ([facility]) Unspecified essential hypertension Vitamin D deficiency 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) Cigarette nicotine dependence without complication Recurrent major depressive disorder, in full remission ([facility]) Generalized anxiety disorder ([facility]) Generalized anxiety disorder Screening mammogram, encounter for Other hyperlipidemia Acute hypoxic respiratory failure ([facility]) Elevated TSH Other abnormal blood chemistry documented in this encounter [facility] HealthcareEvaluation note* Diagnosis 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 loss- Primary Iron deficiency anemia secondary to blood loss (chronic) Current smoker Other hyperlipidemia Moderate persistent asthma without complication ([facility]) Type 2 diabetes mellitus without complication, without long-term current use of insulin Screening mammogram, encounter for Recurrent major depressive disorder, in full remission ([facility]) Asthma with COPD (chronic obstructive pulmonary disease) ([facility])- Primary 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) Type 2 diabetes mellitus without complication, without long-term current use of insulin Primary hypertension ([facility]) Unspecified essential hypertension Asthma with COPD (chronic obstructive pulmonary disease) ([facility])- Primary Primary hypertension ([facility]) Unspecified essential hypertension Type 2 diabetes mellitus without complication, without long-term current use of insulin Primary hypertension ([facility])- Primary Unspecified essential hypertension Asthma with COPD (chronic obstructive pulmonary disease) ([facility]) 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) Other hyperlipidemia Type 2 diabetes mellitus without complication, without long-term current use of insulin Vitamin D deficiency Dermoid cyst of right ear Tobacco dependency Tobacco use disorder Primary hypertension ([facility]/HCC)- Primary Unspecified essential hypertension Type 2 diabetes mellitus without complication, without long-term current use of insulin Other hyperlipidemia Asthma with COPD (chronic obstructive pulmonary disease) ([facility]/HCC) Non-recurrent acute serous otitis media of left ear Influenza A- Primary Influenza with other respiratory manifestations Chronic obstructive pulmonary disease, unspecified COPD type ([facility]/HCC) Acute hypoxic respiratory failure ([facility]) Type 2 diabetes mellitus without complication, without long-term current use of insulin Primary hypertension ([facility]/HCC) Unspecified essential hypertension Benign neoplasm of cranial nerves (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) Scalp laceration, sequela- Primary Cigarette nicotine dependence without complication COPD exacerbation ([facility]/HCC) Obstructive chronic bronchitis with exacerbation Type 2 diabetes mellitus without complication, without long-term current use of insulin- Primary Chronic obstructive pulmonary disease, unspecified COPD type ([facility]/HCC) Primary hypertension ([facility]) Unspecified essential hypertension Vitamin D deficiency 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) Cigarette nicotine dependence without complication Recurrent major depressive disorder, in full remission ([facility]/HCC) Generalized anxiety disorder ([facility]) Generalized anxiety disorder Screening mammogram, encounter for Other hyperlipidemia Acute hypoxic respiratory failure ([facility]) 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) documented in this encounter [facility] HealthcareHospital Discharge instructions No data available for this section [facility]ructionsNot on filedocumented in this encounter [facility]InstructionsNot on filedocumented in this encounter [facility] SystemInstructionsNot on filedocumented in this encounter [facility] SystemProgress note No data available for this section [facility] CenterReason for referral (narrative)* Consultation (Routine) - Pending Review Specialty Diagnoses / Procedures Referred By Marilia underwood Referred To Contact Gastroenterology Diagnoses 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 loss Procedures OR OFFICE/OUTPATIENT NEW HIGH MDM 60 MINUTES Daniel Cardoso, GREG [address] [place] [address] Referral ID Status Reason Start Date Expiration Date Visits Requested Visits Authorized [id number] Pending Review Specialty Services Required 07/07/2024 01/03/2025 1 1 [facility] Summary Purpose Family History Relationship Condition [...] Visit Admit Date Acute hypoxic respiratory failure 2024 9:05pm Aspiration pneumonia December 09, 2024 [...] +, Exacerbation COPD December 13, 2024 12:54pm [facility] 12/09January 04, 2025 8:55am Reason for Visit [...] CREATED AUTHOR AUTHOR'S ORGANIZ ATION 01/09/2023 [facility] [place] [facility] DATE CREATED AUTHOR AUTHOR'S ORGANIZ ATION 12/17/2023 [facility] DATE CREATED AUTHOR AUTHOR'S ORGANIZ ATION 12/17/2024 [facility] DATE CREATED AUTHOR AUTHOR'S ORGANIZ ATION 01/20/[address] [facility] DATE CREATED AUTHOR AUTHOR'S ORGANIZ ATION 02/07/2025 [facility] dical Specialists EPIC Patient Care team informatio n (unrecognized section and content) [employer] Analyst Relationship Specialty Start Date End Date Shaikh Sánchez MD [address] [place] [phone] PCP - Linda MORALES 11/14/23 Shaikh Sánchez MD [address] [place] [phone] PCP - General Internal Medicine 01/16/24 Arielle Wheeler NP [address] [place] [address] Nurse Practitioner Internal Medicine 01/16/24 Kirstin Carreon LPN Licensed Practical Nurse Family Medicine 07/27/24 [employer] Analyst Relationship Specialty Start Date End Date Shaikh Sánchez MD [address] [place] [address] PCP - Linda MORALES 11/14/23 Ian Soares MD [address] [place] [address] PCP - General Family Medicine 09/11/24 Arielle Wheeler NP [address] [place] [address] Nurse Practitioner Internal Medicine 01/16/24 Kirstin Carreon LPN Licensed Practical Nurse Family Medicine 07/27/24 Daniel Cardoso, GREG [address] [place] [address] Nurse Practitioner Family Medicine 09/11/24 [employer] Analyst Relationship Specialty Start Date End Date Shaikh Sánchez MD [address] [place] [address] PCP - Linda MORALES 11/14/23 Ian Soares MD [address] [place] [address] PCP - General Family Medicine 09/11/24 Arielle Wheeler CARE TRANSITIONS NURSE [address] [place] [address] Nurse Practitioner Internal Medicine 01/16/24 Kirstin Carreon LPN Licensed Practical Nurse Family Medicine 07/27/24 Daniel Cardoso, GREG [address] [place] [address] Nurse Practitioner Family Medicine 09/11/24 [employer] Analyst Relationship Specialty Start Date End Date Fawwad, Parada, MD [address] [place] [phone] PCP - Linda MORALES 11/14/23 Ian Soares MD [address] [place] [phone] PCP - General Family Medicine 09/11/24 Arielle Wheeler CARE TRANSITIONS NURSE [address] [place] [address] Nurse Practitioner Internal Medicine 01/16/24 Kirstin Carreon LPN Licensed Practical Nurse Family Medicine 07/27/24 Daniel Cardoso NP [address] [place] [address] Nurse Practitioner Family Medicine 09/11/24 [employer] Analyst Relationship Specialty Start Date End Date Shaikh Sánchez MD [address] [place] [phone] PCP - Linda MORALES 11/14/23 Ian Soares MD [address] [place] [phone] PCP - General Family Medicine 09/11/24 Arielle Wheeler NP [address] [place] [address] Nurse Practitioner Internal Medicine 01/16/24 Kirstin Carreon LPN Licensed Practical Nurse Family Medicine 07/27/24 Daniel Cardoso NP [address] [place] [address] Nurse Practitioner Family Medicine 09/11/24 [employer] Analyst Relationship Specialty Start Date End Date Shaikh Sánchez MD [address] [place] [address] PCP - Linda MORALES 11/14/23 Shaikh Sánchez MD [address] [place] [phone] PCP - General Internal Medicine 01/16/24 Arielle Wheeler, GREG [address] [facility] [address] [place] [address] Nurse Practitioner Internal Medicine 01/16/24 Gustavo Romero LPN Licensed Practical Nurse Family Medicine 07/04/24 [employer] Analyst Relationship Specialty Start Date End Date Shaikh Sánchez MD [address] [place] [address] PCP - Linda MORALES 11/14/23 Ian Soares MD [address] [place] [phone] PCP - General Family Medicine 09/11/24 Arielle Wheeler NP [address] [place] [address] Nurse Practitioner Internal Medicine 01/16/24 Daniel Cardoso NP [address] [place] [address] Nurse Practitioner Family Medicine 09/11/24 Arturo Chanel MA Family Medicine 09/24/24 [employer] Analyst Relationship Specialty Start Date End Date Shaikh Sánchez MD [address] [place] [address] PCP - Linda [place] 11/14/23 Shaikh Sánchez MD [address] [place] [address] PCP - General Internal Medicine 01/16/24 Arielle Wheeler CARE TRANSITIONS NURSE [address] [place], [place] [id number] Nurse Practitioner Internal Medicine 01/16/24 Gustavo Romero LPN Licensed Practical Nurse Family Medicine 07/04/24 [employer] Analyst Relationship Specialty Start Date End Date Shaikh Sánchez MD [address] [place] [address] PCP - Linda MORALES 11/14/23 Shaikh Sánchez MD [address] [place] [phone] PCP - General Internal Medicine 01/16/24 Arielle Wheeler [employer] [facility]URSE [address] [place] [address] Nurse Practitioner Internal Medicine 01/16/24 Gustavo Romero LPN Licensed Practical Nurse Family Medicine 07/04/24 [employer] Analyst Relationship Specialty Start Date End Date Shaikh Sánchez MD [address] [place] [address] PCP - Linda MORALES 11/14/23 Shaikh Sánchez MD [address] [place] [address] PCP - General Internal Medicine 01/16/24 Arielle Wheeler, [facility]ITIONS NURSE [address] [place] [address] Nurse Practitioner Internal Medicine 01/16/24 Gustavo Romero LPN Licensed Practical Nurse Family Medicine 07/04/24 [employer] Analyst Relationship Specialty Start Date End Date Shaikh Sánchez MD [address] [place] [phone] PCP - Linda MORALES 11/14/23 Shaikh Sánchez MD [address] [place] [phone] PCP - General Internal Medicine 01/16/24 Arielle Wheeler CARE [employer]ITIONS NURSE [address] [place] [address] Nurse Practitioner Internal Medicine 01/16/24 Kirstin Carreon LPN Licensed Practical Nurse Family Medicine 07/27/24 [employer] Analyst Relationship Specialty Start Date End Date Shaikh Sánchez MD [address] [place] [address] PCP Shayy Mckeon MA 11/14/23 Ian Soares MD [address] [place] [address] PCP - General Family Medicine 09/11/24 Arielle Wheeler NP [address] [place] [address] Nurse Practitioner Internal Medicine 01/16/24 Daniel Cardoso NP [address] [place] [address] Nurse Practitioner Family Medicine 09/11/24 Arturo Chanel MA Family Medicine 09/24/24 [employer] Analyst Relationship Specialty Start Date End Date Shaikh Sánchez MD [address] [place] [phone] PCP - [facility] 11/14/23 Ian Soares MD [address] [place] [address] PCP - General Family Medicine 09/11/24 Arielle Wheeler NP [address] [place] [phone] Nurse Practitioner Internal Medicine 01/16/24 Daniel Cardoso NP [address] [place] [address] Nurse Practitioner Family Medicine 09/11/24 Arturo Chanel MA Family Medicine 09/24/24 [employer] Analyst Relationship Specialty Start Date End Date Shaikh Sánchez MD [address] [place] [address] PCP - Linda MORALES 11/14/23 Ian Soares MD [address] [place] [address] PCP - General Family Medicine 09/11/24 Arielle Wheeler NP [address] [place] [address] Nurse Practitioner Internal Medicine 01/16/24 Daniel Cardoso NP [address] [place] [address] Nurse Practitioner Family Medicine 09/11/24 Arturo Chanel MA Family Medicine 09/24/24 Team Status: Active Member Role Status Dates Daniel Cardoso NP-C Primary Care Provider Ac tive Team Status: Inactive Member Role Status Dates Daniel Cardoso NP-C Primary Care Provider Ac tive Start: December 09, 2024 End: December 14, 2024 Soco Beasley MD Admit Provider Active Start: Heath armentauary 2024 End: December 14, 2024 Daniel Garza MD Attending Provider Active Start : December 09, 2024 End: December 14, 2024 Cecilia Ruiz MD Other Provider Active Start: Heath armentauary 2024 End: December 14, 2024 Suzette Ng MD Other Provider Active Start: Jamey olivas 2024 End: December 14, 2024 Ryan Arhsad MD Other Provider Active Start: Heath anuary [...] Garza MD Other Provider Active Start: Jamey lior 2024 Krissy Cortez MD Attending Provider Active Sta rt: December 10, 2024 Team Status: Active Member Role Status Dates Daniel Cardoso NP-C Primary Care Provider Active Start: November Soco Beasley MD Admit Provider Active Start: [email or web address] Cecilia Ruiz MD Attending Provider, Other Provider Active Start: December 10, 2024 Dianne Rodrigues RN Other Provider Active Star t: December 10, 2024 Prakash Sena MD Other Provider Active Start: an2024 Gildardo Pastor MD Other Provider Active Start: December 10, 2024 Krissy Cortez MD Other Provider Active Start: December 10, 2024 Daniel Garza MD Other Provider Active Start: lior 2024 Team Status: Active Member Role Status Dates Daniel Cardoso NP-C Primary Care Provider Active Start: November Soco Beasley MD Admit Provider Active Start: an2024 Daniel Garza MD Other Provider Active Start: Jamey olivas 2024 Cecilia Ruiz MD Other Provider Active Start: anuary 2024 Suzette Ng MD Other Provider Active Start: Jamey 2024 Ryan Arshad MD Other Provider Active Start: anuary 2024 Ilana Mendoza APRN Other Provider Active St art: December 13, 2024 Hubert Mcguire Jr, DO Other Provider Active S tart: December 13, 2024 Dave Bazan MD Attending Pr ovider, Other Provider Active Start: December 13, 2024 [employer] Analyst Relationship Specialty Start Date End Date Gianna Isabel MD PCP - General Family Medicine 02/07/17 [employer] Analyst Relationship Specialty Start Date End Date Gianna Isabel MD PCP - General Family Medicine 02/07/17 [employer] Analyst Relationship Specialty Start Date End Date Gianna [...] Team Status: Active Member Role Status Dates LINDA FrancoisC Primary Care Provider Active Start: November Soco Beasley MD Admit Provider Active Start: J anuary 2024 Cecilia Ruiz MD Attending Provider, Other Provider Active Start: December 10, 2024 Dianne Rodrigues RN Other Provider Active Star t: December 10, 2024 Prakash Sena MD Other Provider Active Start: Heath poe 2024 Gildardo Pastor MD Other Provider Active [...] January 04, 2025 End: January 04, 2025 [employer] Analyst Relationship Specialty Start Date End Date Ian Soares MD [address] [place] [phone] PCP - General Family Medicine 09/11/24 Arielle Wheeler NP Nurse Practitioner Internal Medicine 01/16/24 Daniel Cardoso NP [address] [place] [address] Nurse Practitioner Family Medicine 09/11/24 Arturo Chanel MA Family Medicine 09/24/24 [employer] Analyst Relationship Specialty Start Date End Date Ian Soares MD [address] [place] [phone] PCP - General Family Medicine 09/11/24 Arielle Wheeler NP Nurse Practitioner Internal Medicine 01/16/24 Daniel Cardoso NP [address] [place] [address] Nurse Practitioner Family Medicine 09/11/24 Arturo Chanel MA Family Medicine 09/24/24 [employer] Analyst Relationship Specialty Start Date End Date Shaikh Sánchez MD [address] [place] [address] PCP - [place] 11/14/23 Ian Soares MD [address] [place] [address] PCP - General Family Medicine 09/11/24 Arielle Wheeler CARE [employer]ITIONS NURSE [address] [place] [address] Nurse Practitioner Internal Medicine 01/16/24 Daniel Cardoso NP [address] [place] [address] Nurse Practitioner Family Medicine 09/11/24 Arturo Chanel MA Family Medicine 09/24/24 [employer] Analyst Relationship Specialty Start Date End Date Shaikh Sánchez MD [address] [place] [address] PCP - Linda MORALES 11/14/23 Ian Soares MD [address] [place] [address] PCP - General Family Medicine 09/11/24 Arielle Wheeler C[employer]ITIONS NURSE [address] [place] [address] Nurse Practitioner Internal Medicine 01/16/24 Daniel Cardoso GREG [address] [place] [address] Nurse Practitioner Family Medicine 09/11/24 Arturo Chanel MA Family Medicine 09/24/24 [employer] Analyst Relationship Specialty Start Date End Date Shaikh Sánchez MD [address] [place] [address] PCP - [place] 11/14/23 Ian Soares MD [address] [place] [address] PCP - General Family Medicine 09/11/24 Arielle Wheeler NP [address] [place] [address] Nurse Practitioner Internal Medicine 01/16/24 Arturo Chanel MA Family Medicine 09/24/24 La Pack NP [address] [place] [address] Nurse Practitioner Family Medicine 02/06/25 [employer] Analyst Relationship Specialty Start Date End Date Shaikh Sánchez MD [address] [place] [address] PCP - [place] 11/14/23 Ian Soares MD [address] [place] [address] PCP - General Family Medicine 09/11/24 Arielle Wheeler NP [address] [place] [address] Nurse Practitioner Internal Medicine 01/16/24 Arturo Chanel MA Family Medicine 09/24/24 La Pack, GREG [address] [place] [address] Nurse Practitioner Family Medicine 02/06/25 [employer] Analyst Relationship Specialty Start Date End Date Shaikh Sánchez MD [address] [place] [address] PCP - [facility] 11/14/23 Ian Soares MD [address] [place] [address] PCP - General Family Medicine 09/11/24 Arielle Wheeler NP [address] [place] [address] Nurse Practitioner Internal Medicine 01/16/24 Arturo Chanel MA Family Medicine 09/24/24 La Pack NP [address] [place] [address] Nurse Practitioner Family Medicine 02/06/25 Reason for [...] BE BASED ON THE PRIMARY CLINICAL RECORDS. [employer] provides no warranty or guarantee of the accuracy or completeness of information in this document.
--- NOTE | 2025-02-21 09:49 | PC.NURSE ---
Nursing Note Cardiac Stress Test Reviewed: Medication, allergies and patient history reviewed. Stress Test: [ x Patient tolerated stress test well. [ ] Patient unable to tolerate walking on treadmill. Switched to Lexiscan stress test. [x ] No chest pain noted per patient [ ] Chest pain that resolved prior to leaving stress lab. [ ] No dyspnea noted. [x ] Dyspnea that resolved prior to leaving stress lab. [ x] Patient left stress lab asymptomatic and hemodynamically stable. [ ] Patient taken to the Emergency Room due to non-resolving symptoms following stress test. [ ] Patient achieved target heart rate. [ ] Patient unable to achieve target heart rate. [ ] Aminophylline administered as reversal agent to Lexiscan (Regadenoson). [ ] Nitro administered. Nursing Comments: Patient is on o2 at baseline currently. She did have some increased shortness of breath following the administration of the lexiscan which resolved prior to leaving the lab.
[2025-02-21] MEDS: REGADENOSON 0.4 MG/5 ML SYRINGE IV (09:52)
== END 2025-02-21 08:44 | disposition home or self-care (01) ==
LOC: CARD 08:44
PROVIDERS: PCP Nurse Practitioner; Visit Provider Internal Medicine
DX: R94.31 Abnormal electrocardiogram [ECG] [EKG] (principal); R74.8 Abnormal levels of other serum enzymes
CPT/HCPCS: J2785

== ENCOUNTER 2025-03-25 10:50 | Outpatient (OUT) | payer MEDICARE, MEDICAID, SELFPAY ==
[2025-03-25 12:19] LABS: Free T4 0.93 ng/dL (0.76-1.46)
[2025-03-25 12:22] LABS: Thyroid Stimulating Hormone 2.663 uIU/mL (0.358-3.740)
== END 2025-03-25 10:51 | disposition home or self-care (01) ==
LOC: LAB 10:52
PROVIDERS: PCP Nurse Practitioner; Visit Provider Nurse Practitioner
DX: R79.89 Other specified abnormal findings of blood chemistry (principal)
CPT/HCPCS: 36415; 84439; 84443

== ENCOUNTER 2025-07-10 10:48 | Outpatient (OUT) | payer MEDICARE, MEDICAID, SELFPAY ==
--- OUTSIDE RECORDS SUMMARY | 2025-06-26 10:30 | XMS_ITS | Encounter Summary ---
Author Organization [facility] Address [address] [place] [address] Care Team Providers Care Traveler Changer Name Role Phone Shaikh KEV Sánchez Unavailable [phone] Zamzam Wheeler TOMATO PASTE MAKER Unavailable Ian Rader MD Primary Care Provider [phone] Arturo Chanel MA Unavailable [phone] La Pack NP Unavailable [phone] Reason for Visit * Reason Comments Diabetes Encounter Details Date Type Department Care Team (Late st Contact Info) Description 06/26/2025 10:30 AM EDT Office Visit [facility] [address] [place] [address] La Pack TOMATO PASTE MAKER [address] [place] [address] Edema of both lower legs (Primary Dx); Primary hypertension ; Chronic obstructive pulmonary disease, unspecified COPD type (HCC); Type 2 diabetes mellitus without complication, without long-term current use of insulin (HCC); Cigarette nicotine dependence without complication; Depression, unspecified ; Generalized anxiety disorder ; Cellulitis of left lower extremity Social History Tobacco Use Types Packs/Day Years Used Date Smoking Tobacco: Every Day Cigarettes Passive Smoke Exposure: Current Smokeless Tobacco: Never Alcohol Use Standard Drinks/Week Comments Never 0 (1 standard drink = 0.6 oz pur e alcohol) Caffeine: 2-3 cups per day PHQ-2 Answer Date Recorded Patient Health Questionnaire-2 Score 0 03/08/2024 Comments No Sex and Gender Information Value Date Recorded Sex Assigned at Not on file Legal Sex Female 6:34 PM EDT Gender Identity Not on file Sexual Orientation Not on file documented as of this encounter Last Filed Vital Signs Vital Sign Reading Time Taken Comments Blood Pressure 126/84 06/26/2025 10:26 AM EDT Pulse 85 06/26/2025 10:26 AM EDT Temperature 36.9 C (98.4 F) 06/26/2025 10:26 AM EDT Respiratory Rate 20 06/26/2025 10:26 AM EDT Oxygen Saturation 96% 06/26/2025 10:26 AM EDT Inhaled Oxygen Concentration - - Weight - - Height - - Body Mass Index - - documented in this encounter Patient Instructions * Patient Instructions* La Pack NP - 06/26/2025 10:30 AM EDT For your anxiety: we are going to increase sertraline to 100mg pill once a day. Also adding buspar 5mg twice a day for anxiety Add antibiotic for leg cephalexin twice for 10 days, and water pill for swelling leg lasix 20mg daily Check blood work in 10 days documented in this encounter Progress Notes * La Pack NP - 06/26/2025 11:11 AM EDTAssociated Problem(s): Generalized anxiety disorder Will increase dose of sertraline to 100mg Add buspar Fu in 4 weeks * La Pack NP - 06/26/2025 11:11 AM EDTAssociated Problem(s): Cellulitis Secondary to leg swelling, will cover w atb d/t left leg Denies fever or chills * La Pack NP - 06/26/2025 11:10 AM EDTAssociated Problem(s): Edema of both lower legs Otoniel wrap applied to both legs and cannot tolerate compression stockings Will add lasix Check labs 07/06/25 Limit sodium * MARIAJOSE FERRARA - 06/26/2025 10:30 AM EDT Both legs: Swelling, red, leaking (inner left leg) Pt use to be on a water pill in the past has not been on one in a very long time. She states when it becomes hot like it has been her legs swell up- she has been this way for a couple weeks now Pt is often having frequent anxiety attacks- could be from a sound, from standing, when she runs out of coffee, when she is SOB 3L of 02 continuously, pt had flu and pneumonia in November she still struggles Pt Glucose this morning was 163 Pt usually avgs around 140-150s * La Pack NP - 06/26/2025 10:30 AM EDT Images from the original note were not included. Zuleyka Chaudhry is a 70 y.o. female presents with chief complaint of Diabetes HPI: Edema Presents with chronic edema. The current episode started 1-4 weeks ago. The onset of the episode was gradual. These episodes happen throughout the day. The problem presents itself constantly. The problem has been gradually worsening. The edema is present on the both side(s). Risk factors for edema include no known risk factors. Associated symptoms include cough and fatigue. Pertinent negative symptoms include no abdominal pain, no abdominal swelling, no chest pain, no fever, no nausea, no nocturia, no orthopnea, no palpitations, no syncope and no vomiting. Associated symptoms comment: Worse during humid months. Pertinent negative history includes no CAD and no CHF. Treatments tried include nothing. Anxiety Presents for follow-up visit. Symptoms include depressed mood, excessive worry, hyperventilation, irritability, muscle tension, nervous/anxious behavior and shortness of breath. Patient reports no chest pain, decreased concentration, dizziness, nausea, palpitations or suicidal ideas. Symptoms occurmost days. The severity of symptoms is moderate. There is no history of CAD. Compliance with medications is 76-100%. SUBJECTIVE: MEDICATIONS: Current Outpatient Medications Medication Instructions Abrysvo 120 MCG/0.5ML reconstituted solution albuterol HFA 90 mcg/act inhaler 2 puffs, Inhalation, Every 4 hours PRN albuterol 2.5 mg, Nebulization, Every 6 hours PRN atorvastatin (LIPITOR) 40 mg, Oral, Nightly busPIRone (BUSPAR) 5 mg, Oral, 2 times daily cephalexin (KEFLEX) 500 mg, Oral, 2 times daily cholecalciferol (VITAMIN D-3) 50 mcg, Oral, Daily Kbkejhvtena-Lqzgmqfkt-Lsahys (Trelegy Ellipta) 200-62.5-25 MCG/ACT aerosol powder 1 Inhalation, Inhalation, Daily Olafwemoqxi-Xbxwiacwt-Lclsxu (Trelegy Ellipta) 200-62.5-25 MCG/ACT aerosol powder 1 Inhalation, Inhalation, Daily furosemide (LASIX) 20 mg, Oral, Daily Glucose Blood (Blood Glucose Test) strip 1 each, In Vitro, Daily LORazepam (ATIVAN) 0.5 mg, Oral, 3 times daily PRN losartan (COZAAR) 50 mg, Oral, Daily metFORMIN (GLUCOPHAGE) 500 mg, Oral, Daily omeprazole (PRILOSEC) 20 mg, Oral, Daily sertraline (ZOLOFT) 100 mg, Oral, Daily ALLERGIES: No Known Allergies REVIEW OF SYMPTOMS: Review of Systems Constitutional: Positive for fatigue and irritability. Negative for appetite change, chills and fever. HENT: Negative for congestion, ear pain and sore throat. Eyes: Negative for pain, discharge, redness and visual disturbance. Respiratory: Positive for cough and shortness of breath. Negative for wheezing. Cardiovascular: Positive for leg swelling. Negative for chest pain, palpitations and syncope. Gastrointestinal: Negative for abdominal pain, blood in stool, constipation, diarrhea, nausea and vomiting. Genitourinary: Negative for difficulty urinating, dysuria, frequency and nocturia. Musculoskeletal: Negative for arthralgias, back pain, joint swelling and myalgias. Skin: Negative for rash and wound. Neurological: Negative for dizziness, tremors, seizures, syncope and headaches. Psychiatric/Behavioral: Negative for behavioral problems, decreased concentration, self-injury and suicidal ideas. The patient is nervous/anxious. Hematological: Does not bruise/bleed easily. Endocrine: Negative for polydipsia, polyphagia and polyuria. Allergic/Immunologic: Negative for environmental allergies and food allergies. PAST MEDICAL HISTORY Past Medical History: Diagnosis Date Bilateral cataracts Brain tumor (HCC) Constipation COPD (chronic obstructive pulmonary disease) (HCC) Diabetes mellitus, type 2 (HCC) GERD (gastroesophageal reflux disease) Hearing loss History of medical problems Polyps History of medical problems Aneusym on spleen Hyperlipidemia Hypertension Intestinal disorder Macular degeneration Osteoarthritis Right acoustic neuroma (HCC) Splenic artery aneurysm Past Surgical History: Procedure Laterality Date CT ANGIOGRAM ABDOMEN PELVIS 01/26/2021 CT ANGIOGRAM ABDOMEN PELVIS HYSTERECTOMY Acoustic christiano NEUROMA SURGERY Acoustic Neuroma excision OTHER SURGICAL HISTORY Brain tumor family history includes Coronary artery disease in her father; Diabetes in her father; Hypertensionin her father; Sepsis in her father; Uterine cancer in her mother. OBJECTIVE: Visit Vitals BP 126/84 (BP Location: Left arm, Patient Position: Sitting, BP Cuff Size: Adult long) Pulse 85 Temp 98.4 ??F (Temporal) Resp 20 SpO2 96% OB Status Postmenopausal Smoking Status Every Day Physical Exam Vitals and nursing note reviewed. Constitutional: General: She is not in acute distress. Appearance: Normal appearance. HENT: Head: Normocephalic and atraumatic. Right Ear: External ear normal. Left Ear: External ear normal. Nose: Nose normal. Mouth/Throat: Mouth: Mucous membranes are moist. Eyes: Extraocular Movements: Extraocular movements intact. Conjunctiva/sclera: Conjunctivae normal. Neck: Vascular: No carotid bruit. Cardiovascular: Rate and Rhythm: Normal rate and regular rhythm. Pulses: Normal pulses. Heart sounds: Normal heart sounds. No murmur heard. Pulmonary: Effort: Pulmonary effort is normal. Breath sounds: Normal breath sounds. No wheezing or rhonchi. Comments: Diminished Wears oxygen, sitts in a wheel chart Musculoskeletal: General: Normal range of motion. Cervical back: Normal range of motion and neck supple. Right lower leg: Edema present. Left lower leg: Edema present. Comments: 2+ edema bilat from mid tib/fib down +PT/DP pulses, mod erythema around bilat feet, drainaige from an abrasion to left lower leg inner aspect, drainage clear Lymphadenopathy: Cervical: No cervical adenopathy. Skin: General: [...] ASSESSMENT AND PLAN: Follow up in about 4 weeks (around 07/24/2025) for Recheck. Problem List Items Addressed This Visit Type 2 diabetes mellitus without complication, without long-term current use of insulin ([facility]) Check blood sugars daily, notify if <70 [...] simple sugars. Current med: arb, metformin, statin A1c: 6.0% on 02/18/25 Relevant Orders Basic metabolic panel COPD (chronic obstructive pulmonary disease) ([facility]) Wears oxygen at home Current meds: albuterol, trelegy Primary hypertension - Primary Please check blood pressure daily and record DASH diet Limit caffeine Take medication as directed Contact office if chest pain, pressure, dizziness, shortness of breath, swelling legs Recommend slow position changes Current meds: losartan Relevant Orders Basic metabolic panel Cigarette nicotine dependence without complication Has not smoked since Great job Generalized anxiety disorder Will increase dose of sertraline to 100mg Add buspar Fu in 4 weeks Relevant Medications sertraline (Zoloft) 100 MG tablet busPIRone (Buspar) 5 MG tablet Edema of both lower legs Otoniel wrap applied to both legs and cannot tolerate compression stockings Will add lasix Check labs 07/06/25 Limit sodium Relevant Medications furosemide (Lasix) 20 MG tablet Other Relevant Orders Basic metabolic panel Cellulitis Secondary to leg swelling, will cover w atb d/t left leg Denies fever or chills Relevant Medications cephalexin (Keflex) 500 MG capsule Other Visit Diagnoses Depression, unspecified Relevant Medications sertraline (Zoloft) 100 MG tablet * La Pack NP - 06/26/2025 5:02 AM EDTAssociated Problem(s): Cigarette nicotine dependence without complication Has not smoked since Great job * La Pack NP - 06/26/2025 5:02 AM EDTAssociated Problem(s): Acquired hypothyroidism No current meds Initial test TSH was elevated in 03/08: 4.718, recheck 1 month later 2.663, free T 4 WNL as well * La Pack NP - 06/26/2025 5:01 AM EDTAssociated Problem(s): Type 2 diabetes mellitus without complication, without long-term current useof insulin (HCC) Check blood sugars daily, notify if <70 [...] simple sugars. Current med: arb, metformin, statin A1c: 6.0% on 02/18/25 * La Pack NP - 06/26/2025 5:01 AM EDTAssociated Problem(s): Primary hypertension Please check blood pressure daily and record DASH diet Limit caffeine Take medication as directed Contact office if chest pain, pressure, dizziness, shortness of breath, swelling legs Recommend slow position changes Current meds: losartan * La Pack NP - 06/26/2025 5:01 AM EDTAssociated Problem(s): COPD (chronic obstructive pulmonary disease) (HCC) Wears oxygen at home Current meds: albuterol, trelegy documented in this encounter Plan of Treatment Upcoming Encounters Date Type Department Care Team (Late st Contact Info) Description 07/31/2025 11:00 AM EDT Office Visit [facility] [address] [place] [address] La Pack NP [address] [place] [place] [address] Scheduled Orders Name Type Priority Associated Diagnoses Orde r Schedule Basic metabolic panel Lab Routine Primary hypertension Type 2 diabetes mellitus without complication, without long-term current use of insulin (HCC) Edema of both lower legs Expected: 06/26/2025 (Approximate), Expires: 06/26/2026 documented as of this encounter Visit Diagnoses Diagnosis Edema of both lower legs- Primary Primary hypertension Unspecified essential hypertension Chronic obstructive pulmonary disease, unspecified COPD type (HCC) Type 2 diabetes mellitus without complication, without long-term current use of insulin (HCC) Cigarette nicotine dependence without complication Depression, unspecified Generalized anxiety disorder Generalized anxiety disorder Cellulitis of left lower extremity documented in this encounter Additional Health Concerns Assessment Noted Time PHQ-9 Depression Total Score: 1 03/08/20 24 3:39 PM EDT documented as of this encounter Care Teams Traveler Changer Relationship Specialty Start Date End Date Shaikh Sánchez MD [address] [place] [address] PCP - Linda MORALES 11/14/23 Ian Rader MD [address] [place] [address] PCP - General Family Medicine 09/11/24 Zamzam Wheeler NP [address] [place] [address] Nurse Practitioner Internal Medicine 01/16/24 Arturo Chanel MA [address] [place] [address] Family Medicine 09/24/24 07/09/25 La Pack NP [address] [place] [place] [address] Nurse Practitioner Family Medicine 02/06/25 documented as of this encounter
--- OUTSIDE RECORDS SUMMARY | 2025-07-02 05:00 | XMS_ITS ---
Author Organization [facility] [place] Address [address] [place] [address] Care Team Providers Care Finance Advisor Name Role Phone Gonzalo ANGULO, Primary Care Provider Avani Pickering [phone] REASON FOR VISIT New PT Hem Encounters Encounter Location Date Provider Diagnosis [facility] On[facility] [place] [address] 07/02/2025 Avani Chacon Plan Of Treatment No Information Progress Notes * JULIAN MONTAÑO MDOB: 3 (70 yo F)Acc No.[id number]:07/02/2025 UNLOCKED PROGRESS NOTE Progress Notes Patient: JULIAN HIGH Provider: Gael Chacon M.D. :1955 A ge:70 Y S ex:Female Date:07/02/2025 Address:[address] [place], [place] [id number] Pcp:Shaikh Gonzalo MD Subjective: * Chief Complaints: * 1 . New PT Hem. * Medical History: Objective: * Vitals: Assessment: Plan: * Treatment: * * Electronic signature of Eleno Chacon MD, [id number] on 07/10/2025 at 10:56 AM EDT Sign off status: Pending Visit Status: C ANC (Cancelled) * Provider: Gael Chacon M.D. Date: 07/02/2025 Generated for Printi ng/Faxing/eTransmitting on: 0 07/10/2025 10:56 AM EDT
--- OUTSIDE RECORDS SUMMARY | 2025-07-10 10:56 | XMS_ITS | Encounter Summary ---
Author Organization [facility] Address [address] [place] [address] Care Team Providers Care Rent Collector Name Role Phone Shaikh KEV Sánchez Unavailable [phone] Zamzam Wheeler HEEL SPRAYER Unavailable Ian Rader MD Primary Care Provider Jhoana Cardoso HEEL SPRAYER Unavailable Arturo Chanel MA Unavailable [phone] La Pack HEEL SPRAYER Unavailable [phone] Encounter Details Date Type Department Care Team (Late Contact Info) Description 01/14/2025 Abstract [facility] [address] [place] [address] Ian Rader MD [address] [place] [address] Social History Tobacco Use Types Packs/Day Years [...] on file documented as of this encounter Plan of Treatment Upcoming Encounters Date Type Department Care Team (Late Contact Info) Description 07/31/2025 11:00 AM EDT Office Visit [facility] [address] [place] [address] La Pack, GREG [address] [place] [address] documented as of this encounter Visit Diagnoses Not on filedocumented in this encounter Additional Health Concerns Assessment Noted Time PHQ-9 Depression Total Score: 1 03/08/20 3:39 PM EDT documented as of this encounter Care Teams Rent Collector Relationship Specialty Start Date End Date Shaikh Sánchez MD [address] [place] [address] PCP - Linda [place] 11/14/23 Ian Rader MD [address] [place] [address] PCP - General Family Medicine 09/11/24 Zamzam Wheeler NP [address] [place] [address] Nurse Practitioner Internal Medicine 01/16/24 Jhoana Cardoso NP [address] [place] [address] Nurse Practitioner Family Medicine 09/11/24 02/05/25 Arturo Chanel MA [address] [place] [address] Family Medicine 09/24/24 07/09/25 La Pack, GREG [address] [place] [address] Nurse Practitioner Family Medicine 02/06/25 documented as of this encounter
--- OUTSIDE RECORDS SUMMARY | 2025-07-10 10:56 | XMS_ITS | Encounter Summary ---
Author Organization [facility] Address [address] [place] [address] Care Team Providers Care Risk Modeler Name Role Phone Shaikh KEV Sánchez Primary Care Provider [phone] Shaikh KEV Sánchez Unavailable [phone] Zamzam Wheeler WEIGHT AND BALANCE CONTROL AGENT Unavailable Shaikh KEV Sánchez Primary Care Provider [phone] Funmilayo Lombardo CASINO SUPERVISOR Unavailable Gustavo Romero MANUFACTURING QUALITY ENGINEER Unavailable Unavailable Kirstin Carreon MANUFACTURING QUALITY ENGINEER Unavailable Ian Rader MD Primary Care Provider [phone] Jhoana Cardoso WEIGHT AND BALANCE CONTROL AGENT Unavailable [phone] Arturo Chanel MA Unavailable [phone] La Pack WEIGHT AND BALANCE CONTROL AGENT Unavailable [phone] Reason for Visit * Reason Comments Med Refill Encounter Details Date Type Department Care Team (Late st Contact Info) Description 10/28/2023 Refill [facility] [address] [place] [place] [address] Shaikh Sánchez MD [address] [place] [place] [address] Iron deficiency; Other bursitis of elbow, left elbow Social History Tobacco Use Types Packs/Day Years Used Date Smoking Tobacco: Former Cigarettes Alcohol Use Standard Drinks/Week Comments Never 0 (1 standard drink = 0.6 oz pur e alcohol) Caffeine: 2-3 cups per day Comments Unknown Sex and Gender Information Value Date Recorded Sex Assigned at Not on file Legal Sex Female 6:34 PM EDT Gender Identity Not on file Sexual Orientation Not on file documented as of this encounter Miscellaneous Notes * Telephone Encounter - Shaikh Gonzalo MD - 10/29/2023 4:59 PM EST Approving, but needs appt for additional refills. documented in this encounter Plan of Treatment Upcoming Encounters Date Type Department Care Team (Late st Contact Info) Description 07/31/2025 11:00 AM EDT Office Visit [facility] [address] [place] [address] La Pack, GREG [address] [place] [address] documented as of this encounter Visit Diagnoses Diagnosis Iron deficiency Disorders of iron metabolism Other bursitis of elbow, left elbow documented in this encounter Care Teams Risk Modeler Relationship Specialty Start Date End Date Shaikh Sánchez MD PCP - General Internal Medicine 07/05/23 01/15/24 Shaikh Sánchez MD [address] [place] [address] PCP - Linda MORALES 11/14/23 Shaikh Sánchez MD [address] [place] [address] PCP - General Internal Medicine 01/16/24 09/10/24 Ian Rader MD [address] [place] [address] PCP - General Family Medicine 09/11/24 Zamzam Wheeler NP [address] [place] [address] Nurse Practitioner Internal Medicine 01/16/24 Funmilayo Lombardo, CASINO SUPERVISOR [address] [place] [address] Cold Working Supervisor Hims Manager 06/28/24 07/04/24 Gustavo Romero LPN Licensed Practical Nurse Family Medicine 07/04/24 Kirstin Carreon LPN [address] [place] [address] Licensed Practical Nurse Family Medicine 07/27/2409/14 Jhoana Cardoso NP [address] [place] [address] Nurse Practitioner Family Medicine 09/11/24 02/05/25 Arturo Chanel, [place] [address] [place] [address] Family Medicine 09/24/24 07/09/25 La Pack NP [address] [place] [address] Nurse Practitioner Family Medicine 02/06/25 documented as of this encounter
--- OUTSIDE RECORDS SUMMARY | 2025-07-10 10:56 | XMS_ITS | Encounter Summary ---
Author Organization [facility] Address [address] [place] [address] Care Team Providers Care Supervisor Mold [employer] Name Role Phone Shaikh KEV Sánchez Unavailable [phone] Zamzam Wheeler TRAILER CHIEF Unavailable Ian Rader MD Primary Care Provider Jhoana Cardoso TRAILER CHIEF Unavailable Arturo Chanel MA Unavailable [phone] La Pack TRAILER CHIEF Unavailable [phone] Encounter Details Date Type Department Care Team (Late Contact Info) Description 01/14/2025 Abstract [facility] [address] [place] [address] Ian Rader MD [address] [place] [address] Social History Tobacco Use Types Packs/Day Years [...] [facility] [address] [place] [address] La Pack, GREG [address] [place] [address] documented as of this encounter Visit Diagnoses Not on filedocumented in this encounter Additional Health Concerns Assessment Noted Time PHQ-9 Depression Total Score: 1 03/08/20 3:39 PM EDT documented as of this encounter Care Teams Supervisor [employer] Relationship Specialty Start Date End Date Shaikh Sánchez MD [address] [place] [address] PCP - Linda [place] 11/14/23 Ian Rader MD [address] [place] [address] PCP - General Family Medicine 09/11/24 Zamzam Wheeler NP [address] [place] [address] Nurse Practitioner Internal Medicine 01/16/24 Jhoana Cardoso NP [address] [place] [address] Nurse Practitioner Family Medicine 09/11/24 02/05/25 Arturo Chanel MA [address] [place] [address] Family Medicine 09/24/24 07/09/25 La Pack, GREG [address] [place] [address] Nurse Practitioner Family Medicine 02/06/25 documented as of this encounter
--- OUTSIDE RECORDS SUMMARY | 2025-07-10 10:56 | XMS_ITS | Encounter Summary ---
Author Organization [facility] Address [address] [facility] [place] [address] Care Team Providers Care Turret Punch Operator Name Role Phone Shaikh KEV Sánchez Unavailable [phone] Zamzam Wheeler RETAIL SALES TEAMMATE Unavailable Ian Rader MD Primary Care Provider Jhoana Cardoso RETAIL SALES TEAMMATE Unavailable [phone] Arturo Chanel MA Unavailable [phone] La Pack RETAIL SALES TEAMMATE Unavailable [phone] Encounter Details Date Type Department Care Team (Late Contact Info) Description 01/30/2025 [facility] [address] [place] [address] Ian Rader MD [address] [place] [address] Social History Tobacco Use Types Packs/Day Years [...] [facility] [address] [place] [address] La Pack NP [address] [place] [address] documented as of this encounter Procedures Procedure Name Priority Date/Time Associated Diagnosis Comments DIABETIC RETINOPATHY SCREENING - OU - BOTH EYES Routine 01/30/2025 3:23 PM EDT documented in this encounter Results * Diabetic Retinopathy Screening - OU - Both Eyes (01/30/2025 3:23 PM EDT) Anatomical Region Laterality Modality Head Other us Ian Rader MD OPHTH PHOTOGRAPHY Final Result documented in this encounter Visit Diagnoses Not on filedocumented in this encounter Additional Health Concerns Assessment Noted Time PHQ-9 Depression Total Score: 1 03/08/20 3:39 PM EDT documented as of this encounter Care Teams Turret Punch Operator Relationship Specialty Start Date End Date Shaikh Sánchez MD [address] [place] [address] PCP - Linda MORALES 11/14/23 Ian Rader MD [address] [place] [address] PCP - General Family Medicine 09/11/24 Zamzam Wheeler NP [address] [place] [address] Nurse Practitioner Internal Medicine 01/16/24 Jhoana Cardoso NP [address] [place] [address] Nurse Practitioner Family Medicine 09/11/24 02/05/25 Arturo Chanel MA [address] [place] [address] Family Medicine 09/24/24 07/09/25 La Pack NP [address] [place] [address] Nurse Practitioner Family Medicine 02/06/25 documented as of this encounter
--- OUTSIDE RECORDS SUMMARY | 2025-07-10 10:56 | XMS_ITS | Clinical Summary ---
Author Organization [facility] Address [address] [place] [address] Phone Care Team Providers Care Insurance Coder Name Role Phone Unavailable Primary Care Provider Unavailabl e Social History Tobacco Use Types Packs/Day Years Used Date Smoking Tobacco: Never Assessed Comments Unknown Sex and Gender Information Value Date Recorded Sex Assigned at Not on file Legal Sex Female 10:36 AM EST Gender Identity Not on file Sexual Orientation Not on file Plan of Treatment Not on file
--- OUTSIDE RECORDS SUMMARY | 2025-07-10 10:56 | XMS_ITS ---
Author Organization [facility] Address [address] [place] [address] Care Team Providers Care Roll Up Helper Name Role Phone Shaikh KEV Sánchez Unavailable [phone] Zamzam Wheeler CHILD NEUROLOGIST Unavailable [phone] Ian Rader MD Primary Care Provider [phone] La Pack CHILD NEUROLOGIST Unavailable [phone] Chronic Care Management (CCM) Status:Closed (Closed) Start date:06/28/2024 Enrollment date:07/04/2024 Enrollment reason:Identified as high-risk End date:07/09/2025 Close reason:Not eligible Overview <July 04, 2024, 15:54 - END Santiago> 07/04/24, 3:54 PM - NED Santiago- Patient gives verbal consent to be enrolled in CCM Program and understands there could be a bill for this service. <July 09, 2025, 14:21 - Dianne Castanon RN> CCM Program closed r/t PCP leaving [facility] Continued Care and Services Coordination
--- OUTSIDE RECORDS SUMMARY | 2025-07-10 10:56 | XMS_ITS | Encounter Summary ---
Author Organization [facility] Address [address] [place] [address] Care Team Providers Care Jtac Name Role Phone Shaikh KEV Sánchez Unavailable [phone] Zamzam Wheeler SHAVING MACHINE OPERATOR Unavailable Shaikh KEV Sánchez Primary Care Provider Funmilayo Lombardo CHIEF WARDEN Unavailable Gustavo Romero COMMUNICATIONS INTERN Unavailable Unavailable Kirstin Carreon COMMUNICATIONS INTERN Unavailable Ian Rader MD Primary Care Provider Jhaona Cardoso SHAVING MACHINE OPERATOR Unavailable [phone] Arturo Chnael MA Unavailable [phone] La Pack SHAVING MACHINE OPERATOR Unavailable [phone] Encounter Details Date Type Department Care Team (Late st Contact Info) Description 03/12/2024 Orders Only [facility] [address] [place] [address] Shaikh Sánchez MD [address] [place] [address] Social History Tobacco Use Types Packs/Day Years Used Date Smoking Tobacco: Every Day Cigarettes Passive Smoke Exposure: Current Smokeless Tobacco: Never Alcohol Use Standard Drinks/Week Comments Never 0 (1 standard drink = 0.6 oz pur e alcohol) Caffeine: 2-3 cups per day PHQ-2 Answer Date Recorded Patient Health Questionnaire-2 Score 0 03/08/2024 Comments Unknown Sex and Gender Information Value Date Recorded Sex Assigned at Not on file Legal Sex Female 6:34 PM EDT Gender Identity Not on file Sexual Orientation Not on file documented as of this encounter Plan of Treatment Upcoming Encounters Date Type Department Care Team (Late st Contact Info) Description 07/31/2025 11:00 AM EDT Office Visit [facility] [address] [place] [place] [address] La Pack NP [address] [place] [address] documented as of this encounter Visit Diagnoses Not on filedocumented in this encounter Additional Health Concerns Assessment Noted Time PHQ-9 Depression Total Score: 1 03/08/20 3:39 PM EDT documented as of this encounter Care Teams Jtac Relationship Specialty Start Date End Date Shaikh Sánchez MD [address] [place] [place] [address] PCP - Linda MORALES 11/14/23 Shaikh Sánchez MD [address] [place] [place] [address] PCP - General Internal Medicine 01/16/24 09/10/24 Ian Rader MD [address] [place] [place] [address] PCP - General Family Medicine 09/11/24 Zamzam Wheeler NP [address] [place] [place] [address] Nurse Practitioner Internal Medicine 01/16/24 Funmilayo Lombardo, CHIEF WARDEN [address] [place] [address] Oracle Technical Architect Airplane Electrical Repairer 06/28/24 07/04/24 Gustavo Romero LPN Licensed Practical Nurse Family Medicine 07/04/24 Kirstin Carreon LPN [address] [place], [place] [address] Licensed Practical Nurse Family Medicine 07/27/2409/14 Jhoana Cardoso NP [address] [place] [address] Nurse Practitioner Family Medicine 09/11/24 02/05/25 Arturo Chanel, [place] [address] [place] [address] Family Medicine 09/24/24 07/09/25 La Pack NP [address] [place] [address] Nurse Practitioner Family Medicine 02/06/25 documented as of this encounter
--- OUTSIDE RECORDS SUMMARY | 2025-07-10 10:56 | XMS_ITS | Patient Health Record ---
Author Organization [facility] [place] Address [address] [place] [address] Care Team Providers Care Family Practitioner Name Role Phone Shaikh Sánchez MD Primary Care Provider Talhaa Avani Guardado Unavailable [phone] Reason For Referral No Information Problems Problem Type SNOMED Code ICD Code Onset Dates Problem Status W/U Status Risk Notes Problem Asthma (150044664) Asthma (J45.909) Active confirmed Problem COPD - Chronic obstructive pulmonary disease (83774290) COPD (chronic obstructive pulmonary disease) (J44.9) Active confirmed Plan Of Treatment No Information Insurance Providers Payer Name Payer Address Payer Phone Subscriber Number Group Number Insured Name Patient Relationship to Insured Coverage Start Date Coverage End Date [employer] PPO PLUS LOCAL PLAN [address] [place] [phone] [id number] JULIAN MONTAÑO Self - patient is the insured
--- OUTSIDE RECORDS SUMMARY | 2025-07-10 10:56 | XMS_ITS | Encounter Summary ---
Author Organization [facility] Address [address] [place] [address] Care Team Providers Care Greaser Helper Name Role Phone Shaikh KEV Sánchez Unavailable [phone] Zamzam Wheeler CLINICAL PRACTITIONER Unavailable [phone] Shaikh KEV Sánchez Primary Care Provider [phone] Funmilayo Lombardo VEHICLE MODIFICATION TECHNICIAN Unavailable Gustavo Romero STEM PROCESSING MACHINE OPERATOR Unavailable Unavailable Kirstin Carreon STEM PROCESSING MACHINE OPERATOR Unavailable Ian Rader MD Primary Care Provider Jhoana Cardoso CLINICAL PRACTITIONER Unavailable [phone] Arturo Chanel MA Unavailable [phone] La Pack CLINICAL PRACTITIONER Unavailable [phone] Encounter Details Date Type Department Care Team (Late st Contact Info) Description 01/16/2024 Clinisync Result Encounter [facility] External Department Unsolicited Shaikh Sánchez MD [address] [place] [address] Social History Tobacco Use Types Packs/Day Years Used Date Smoking Tobacco: Every Day Cigarettes Smokeless Tobacco: Never Alcohol Use Standard Drinks/Week Comments Never 0 (1 standard drink = 0.6 oz pur e alcohol) Caffeine: 2-3 cups per day PHQ-2 Answer Date Recorded Patient Health Questionnaire-2 Score 0 11/21/2023 Comments Unknown Sex and Gender Information Value Date Recorded Sex Assigned at Not on file Legal Sex Female 6:34 PM EDT Gender Identity Not on file Sexual Orientation Not on file documented as of this encounter Plan of Treatment Upcoming Encounters Date Type Department Care Team (Late st Contact Info) Description 07/31/2025 11:00 AM EDT Office Visit [facility] [address] [place] [address] La Pakc, GREG [address] [place] [address] documented as of this encounter Procedures Procedure Name Priority Date/Time Associated Diagnosis Comments MM TOMOSYNTHESIS SCREENING BI 01/16/2024 9:10 AM EST documented in this encounter Results * MM TOMOSYNTHESIS SCREENING BI (01/16/2024 9:10 AM EST) Anatomical Region Laterality Modality Other 01/16/2024 9:10 AM EST Narrative 01/16/2024 9:11 [place] [address] Mammography Report Signed Patient: ZULEYKA CHAUDHRY MR#: [id number] : 1955 Acct:[id number] Age/Sex: 68 / F ADM Date: 01/16/24 Loc: MAMMO Attending Dr: Shaikh Gonzalo Hooker Ordering Physician: Shaikh Morro Sánchez Results: Date of Service: 01/16/24 Follow Up: Procedure(s): MM tomosynthesis screening BI Accession Number(s): [id number] cc: Shaikh Morro Sánchez Patient Name: ZULEYKA CHAUDHRY MR#: [id number] : 1955 Exam Date: 01/16/2024 Ordering Doctor: Shaikh Hector Sánchez . RADIOLOGY REPORT PROCEDURE: MM TOMOSYNTHESIS SCREENING BI COMPARISON: MG MAMM SCREEN EDINSON W CAD, 07/04/2020. MG MAMM SCREEN 3D EDINSON CAD, 08/11/2021. INDICATIONS: screening Calculator Name NCI Breast Cancer Risk Assessment Tool 5 Year Breast Cancer Risk 1.10% Lifetime Breast Cancer Risk 3.30% Personal Breast Cancer No Personal Ovarian Cancer No Treatments None Family Cancers Mother with uterine cancer at age 55. LOCATION: [facility] BREAST COMPOSITION: Almost entirely fatty. FINDINGS: DIAGNOSTIC CATEGORY 1--NEGATIVE. NO CHANGE FROM COMPARISON ASSESSMENT. RIGHT BREAST: No significant suspicious finding. LEFT BREAST: No significant suspicious finding. RECOMMENDATIONS: ROUTINE MAMMOGRAM AND CLINICAL EVALUATION IN 12 MONTHS. PLEASE NOTE: A NORMAL MAMMOGRAM DOES NOT EXCLUDE THE POSSIBILITY OF BREAST CANCER. A CLINICALLY SUSPICIOUS PALPABLE LUMP SHOULD BE BIOPSIED. Dictated by: Felice Morgan MD on 01/16/2024 at 09:09 Approved by: Felice Morgan MD on 01/16/2024 at 09:10 Dictated By: Felice Morgan M.D. Signed By: 01/16/24910 DD/ 9 TD/TT: Stem Processing Machine Operator: Procedure Note Radiology, Radiologist, MD - 01/16/2024 [place] [address] Mammography Report Signed Patient: ZULEYKA CHAUDHRY MMR#: [id number] : 1955cct:[id number] Age/Sex: 68 / FADM Date: 01/16/24 Loc: MAMMO Attending Dr: Shaikh Gonzalo Hooker Ordering Physician: Shaikh Morro SánchezResults: Date of Service: 01/16/24Follow Up: Procedure(s): MM tomosynthesis screening BI Accession Number(s): [id number] cc: Shaikh Morro Sánchez Patient Name: ZULEYKA CHAUDHRY MR#: [id number] : 1955 Exam Date: 01/16/2024 Ordering Doctor: Shaikh Hector Sánchez . RADIOLOGY REPORT PROCEDURE: MM TOMOSYNTHESIS SCREENING BI COMPARISON: MG MAMM SCREEN EDINSON W CAD, 07/04/2020. MG MAMM SCREEN 3DBIL CAD, 08/11/2021. INDICATIONS: screening Calculator Name NCI Breast Cancer Risk Assessment Tool 5 Year Breast Cancer Risk 1.10% Lifetime Breast Cancer Risk 3.30% Personal Breast Cancer No Personal Ovarian Cancer No Treatments None Family Cancers Mother with uterine cancer at age 55. LOCATION: [facility] BREAST COMPOSITION: Almost entirely fatty. FINDINGS: DIAGNOSTIC CATEGORY 1--NEGATIVE. NO CHANGE FROM COMPARISON ASSESSMENT. RIGHT BREAST: No significant suspicious finding. LEFT BREAST: No significant suspicious finding. RECOMMENDATIONS: ROUTINE MAMMOGRAM AND CLINICAL EVALUATION IN 12 MONTHS. PLEASE NOTE: A NORMAL MAMMOGRAM DOES NOT EXCLUDE THE POSSIBILITY OFBREAST CANCER. A CLINICALLY SUSPICIOUS PALPABLE LUMP SHOULD BE BIOPSIED. Dictated by: Felice Morgan MD on 01/16/2024 at 09:09 Approved by: Felice Morgan MD on 01/16/2024 at 09:10 Dictated By: Felice Morgan M.D. Signed By:01/16/24910 DD/ 9 TD/TT: Stem Processing Machine Operator: Shaikh Gonzalo [facility] Final Result documented in this encounter Visit Diagnoses Not on filedocumented in this encounter Care Teams Greaser Helper Relationship Specialty Start Date End Date Shaikh Sánchez MD [address] [place] [address] PCP - Linda MORALES 11/14/23 Shaikh Sánchez MD [address] [place] [address] PCP - General Internal Medicine 01/16/24 09/10/24 Ian Rader MD [address] [place] [address] PCP - General Family Medicine 09/11/24 Zamzam Wheeler NP [address] [place] [address] Nurse Practitioner Internal Medicine 01/16/24 Funmilayo Lombardo, VEHICLE MODIFICATION TECHNICIAN [address] [place] [address] Mailroom Messenger Director Of Operations Home Health 06/28/24 07/04/24 Gustavo Romero LPN Licensed Practical Nurse Family Medicine 07/04/24 Kirstin Carreon LPN [address] [place] [address] Licensed Practical Nurse Family Medicine 07/27/2409/14 Jhoana Cardoso NP [address] [place] [address] Nurse Practitioner Family Medicine 09/11/24 02/05/25 Arturo Chanel, [place] [address] [place] [address] Family Medicine 09/24/24 07/09/25 La Pack NP [address] [place] [address] Nurse Practitioner Family Medicine 02/06/25 documented as of this encounter
--- OUTSIDE RECORDS SUMMARY | 2025-07-10 10:56 | XMS_ITS | Encounter Summary ---
Author Organization [facility] Address [address] [place] [address] Care Team Providers Care Thickener Operator Name Role Phone Shaikh KEV áSnchez Primary Care Provider [phone] Shaikh KEV Sánchez Unavailable [phone] Zamzam Wheeler CLAY BURNER Unavailable Shaikh KEV Sánchez Primary Care Provider [phone] Funmilayo Lombardo YOKE SETTER Unavailable Gustavo Romero SWITCH ADJUSTER Unavailable Unavailable Kirstin Carreon SWITCH ADJUSTER Unavailable Ian Rader MD Primary Care Provider [phone] Jhoana Cardoso CLAY BURNER Unavailable Arturo Chanel MA Unavailable [phone] La Pack CLAY BURNER Unavailable [phone] Encounter Details Date Type Department Care Team (Late st Contact Info) Description 01/04/2024 Orders Only [facility] [address] [place] [address] Shaikh Sánchez MD [address] [place] [address] Social History Tobacco Use Types Packs/Day Years [...] Visit [facility] [address] [place] [address] La Pack NP [address] [place] [address] documented as of this encounter Procedures Procedure Name Priority Date/Time Associated Diagnosis Comments MRI BRAIN W & WO CONT Routine 11/30/2023 10:12 AM EST documented in this encounter Results * MRI BRAIN W & WO CONT (11/30/2023 10:12 AM EST) Anatomical Region Laterality Modality Radiographic Susanna ging us Shaikh Gonzalo ANGULO IMG XR PROCEDURES Final Result documented in this encounter Visit Diagnoses Not on filedocumented in this encounter Care Teams Thickener Operator Relationship Specialty Start Date End Date Shaikh Sánchez MD PCP - General Internal Medicine 07/05/23 01/15/24 Shaikh Sánchez MD [address] [place] [address] PCP - Linda MORALES 11/14/23 Shaikh Sánchez MD [address] [place] [address] PCP - General Internal Medicine 01/16/24 09/10/24 Ian Rader MD [address] [place] [address] PCP - General Family Medicine 09/11/24 Zamzam Wheeler CLAY BURNER [address] [place] [address] Nurse Practitioner Internal Medicine 01/16/24 Funmilayo Lombardo, YOKE SETTER [address] [place] [address] Tomato Pulper Operator Rib Trim Separator 06/28/24 07/04/24 Gustavo Romero LPN Licensed Practical Nurse Family Medicine 07/04/24 Kirstin Carreon LPN [address] [place] [address] Licensed Practical Nurse Family Medicine 07/27/2409/14 Jhoana Cardoso NP [address] [place] [address] Nurse Practitioner Family Medicine 09/11/24 02/05/25 Arturo Chanel, [place] [address] [place] [address] Family Medicine 09/24/24 07/09/25 La Pack NP [address] [place] [address] Nurse Practitioner Family Medicine 02/06/25 documented as of this encounter
--- OUTSIDE RECORDS SUMMARY | 2025-07-10 10:56 | XMS_ITS | Encounter Summary ---
Author Organization [facility] Address [address] [place] [address] Care Team Providers Care Slice Cutting Machine Operator Name Role Phone Shaikh KEV Sánchez Primary Care Provider [phone] Shaikh KEV Sánchez Unavailable [phone] Zamzam Wheeler PHOTOGRAPH DEVELOPER Unavailable [phone] Shaikh KEV Sánchez Primary Care Provider [phone] Funmilayo Lombardo REED PRESS FEEDER Unavailable Gustavo Romero EQUITY STRUCTURER Unavailable Unavailable Kirstin Carreon EQUITY STRUCTURER Unavailable Ian Rader MD Primary Care Provider Jhoana Cardoso PHOTOGRAPH DEVELOPER Unavailable [phone] Arturo Chanel MA Unavailable [phone] La Pack PHOTOGRAPH DEVELOPER Unavailable [phone] Encounter Details Date Type Department Care Team (Late st Contact Info) Description 12/12/2023 Clinisync Result Encounter [facility] External Department Unsolicited Shaikh Sánchez MD [address] [place] [id number] Social History Tobacco Use Types Packs/Day Years [...] 07/31/2025 11:00 AM EDT Office Visit [facility] [address] [place] [address] La Pack NP [address] [place] [place] [address] documented as of this encounter Procedures Procedure Name Priority Date/Time Associated Diagnosis Comments RT PULMONARY FUNCTION TEST 12/12/2023 9:10 AM EST documented in this encounter Results * RT PULMONARY FUNCTION TEST (12/12/2023 9:10 AM EST) Anatomical Region Laterality Modality Other 12/12/2023 9:10 AM EST Narrative 12/21/2023 8:02 [place] [address] Respiratory Report Signed Patient: ZULEYKA CHAUDHRY MR#: [id number] : 1955 Acct:[id number] Age/Sex: 68 / F ADM Date: 12/12/23 Loc: CARD Attending Dr: Shaikh Gonzalo Hooker Ordering Physician: Shaikh Morro Sánchez Date of Service: 12/12/23 Procedure(s): RT pulmonary function test Accession Number(s): [id number] cc: [facility] Test Date: 2023-12-12 Pat Name: ZULEYKA CHAUDHRY Department: Room: - Gender: Female Control Officer Manager: Zaina Albarado RRT : 1955 Requested By: [id number] Order Number: [id number] Reading MD: Tru [place] Interpretive Statements Pulmonary function testing was completed according to ATS criteria. Findings were not considered accurate and reproducible, as the patient was not able to perform the maneuvers up to ATS standards. Both pre- and post-bronchodilator values utilized for spirometry. Spirometry (based on pre-bronchodilator values): -FEV1/FVC: Reduced @38% -FEV1: Severely reduced @ 38% -FVC: Mildly reduced @ 75% -There is a positive bronchodilator response in FEV1 and FVC. Lung volumes by plethysmography: -RV: Increased @ 247% -TLC: Increased @ 150% Diffusion capacity: -DLCO: Moderate reduction @ 55% when corrected for Hb 10.4g/dL Flow-volume loop: -Severe obstructive pattern Impressions: Spirometry suggests severe obstruction with a positive bronchodilator response. An elevated RV and TLC suggest air trapping and hyperinflation respectively. There is a moderately reduced diffusion capacity. Overall study is compatible with obstructive lung disease. Study suggests COPD with a bronchodilator response or asthma-COPD overlap - unable to determine further as patient was unable to jonah ATS standards. Clinical correlation required. Electronically Signed On 12-21-2023 8:02:14 EST by Tru Land Dictated By: Tru Land D.O. Signed By: 12/21/23 0802 12/21/23 08 DD/ 0910 TD/TT: Magnetizer: Procedure Note Radiology, Radiologist, - 12/21/2023 [place] [address] Respiratory Report Signed Patient: ZULEYKA CHAUDHRY MMR#: [id number] : 1955cct:[id number] Age/Sex: 68 / FADM Date: 12/12/23 Loc: CARD Attending Dr: Shaikh Gonzalo Hooker Ordering Physician: Shaikh Morro Sánchez Date of Service: 12/12/23 Procedure(s): RT pulmonary function test Accession Number(s): [id number] cc: [facility] Test Date: 2023-12-12 Pat Name: ZULEYKA CHAUDHRY Department: Room: - Gender: Female Control Officer Manager: Zaina Albarado RRT : 1955 Requested By: [id number] Order Number: [id number] Reading MD: Tru Land Interpretive Statements Pulmonary function testing was completed according to ATS criteria.Findings were not considered accurate and reproducible, as the patient was not ableto perform the maneuvers up to ATS standards. Both pre- andpost-bronchodilator values utilized for spirometry. Spirometry (based on pre-bronchodilator values): -FEV1/FVC: Reduced @38% -FEV1: Severely reduced @ 38% -FVC: Mildly reduced @ 75% -There is a positive bronchodilator response in FEV1 and FVC. Lung volumes by plethysmography: -RV: Increased @ 247% -TLC: Increased @ 150% Diffusion capacity: -DLCO: Moderate reduction @ 55% when corrected for Hb 10.4g/dL Flow-volume loop: -Severe obstructive pattern Impressions: Spirometry suggests severe obstruction with a positive bronchodilator response. An elevated RV and TLC suggest air trapping and hyperinflation respectively. There is a moderately reduced diffusion capacity. Overallstudy is compatible with obstructive lung disease. Study suggests COPD with a bronchodilator response or asthma-COPD overlap - unable to determinefurther as patient was unable to jonah ATS standards. Clinical correlation required. Electronically Signed On 12-21-2023 8:02:14 EST by Tru Land Dictated By: Tru Land D.O. Signed By:12/21/23 0802 12/21/23 0802 DD/ 0910 TD/TT: Magnetizer: Shaikh Gonzalo [facility] Final Result documented in this encounter Visit Diagnoses Not on filedocumented in this encounter Care Teams Slice Cutting Machine Operator Relationship Specialty Start Date End Date Shaikh Sánchez MD PCP - General Internal Medicine 07/05/23 01/15/24 Shaikh Sánchez MD [address] [place] [phone] PCP - Linda MORALES 11/14/23 Shaikh Sánchez MD [address] [place] [address] PCP - General Internal Medicine 01/16/24 09/10/24 Ian Rader MD [address] [place] [address] PCP - General Family Medicine 09/11/24 Zamzam Wheeler PHOTOGRAPH DEVELOPER [address] [place] [address] Nurse Practitioner Internal Medicine 01/16/24 [place] [address] [place] [address] Fashion Supervisor Chair Lift Operator 06/28/24 07/04/24 Gustavo Romero LPN Licensed Practical Nurse Family Medicine 07/04/24 Kirstin Carreon LPN [address] [place] [address] Licensed Practical Nurse Family Medicine 07/27/2409/14 Jhoana Cardoso NP [address] [place] [place] [address] Nurse Practitioner Family Medicine 09/11/24 02/05/25 Arturo Chanel, [place] [address] [place] [address] Family Medicine 09/24/24 07/09/25 La Pack NP [address] [place] [address] Nurse Practitioner Family Medicine 02/06/25 documented as of this encounter
--- OUTSIDE RECORDS SUMMARY | 2025-07-10 10:56 | XMS_ITS | Encounter Summary ---
Author Organization [facility] Address [address] [place] [address] Care Team Providers Care Barrelhead Inspector Name Role Phone Shaikh KEV Sánchez Unavailable [phone] Zamzam Wheeler REPAIRER ART OBJECTS Unavailable Ian Rader MD Primary Care Provider Jhoana Cardoso NP Unavailable Arturo Chanel MA Unavailable [phone] La Pack NP Unavailable [phone] Encounter Details Date Type Department Care Team (Late Contact Info) Description 12/11/2024 Abstract [facility] [address] [place] [address] Jhoana Cardoso NP Social History Tobacco Use Types Packs/Day Years [...] 07/31/2025 11:00 AM EDT Office Visit [facility] [address] [place] [address] La Pack, GREG [address] [place] [phone] documented as of this encounter Visit Diagnoses Not on filedocumented in this encounter Additional Health Concerns Assessment Noted Time PHQ-9 Depression Total Score: 1 03/08/20 3:39 PM EDT documented as of this encounter Care Teams Barrelhead Inspector Relationship Specialty Start Date End Date Shaikh Sánchez MD [address] [place] [address] PCP - Linda MORALES 11/14/23 Ian Rader MD [address] [place] [address] PCP - General Family Medicine 09/11/24 Zamzam Wheeler NP [address] [place] [phone] Nurse Practitioner Internal Medicine 01/16/24 Jhoana Cardoso NP [address] [place] [phone] Nurse Practitioner Family Medicine 09/11/24 02/05/25 Arturo Chanel MA [address] [place] [address] Family Medicine 09/24/24 07/09/25 La Pack, GREG [address] [place] [address] Nurse Practitioner Family Medicine 02/06/25 documented as of this encounter
--- OUTSIDE RECORDS SUMMARY | 2025-07-10 10:57 | XMS_ITS | Clinical Summary ---
Author Organization [facility] Healthcare Address [address] [place] [address] Care Team Providers Care Apricot Packer Name Role Phone Shaikh KEV Sánchez Unavailable [phone] Zamzam Wheeler GENERAL MACHINE OPERATOR Unavailable [phone] Ian Rader MD Primary Care Provider [phone] La Pack GENERAL MACHINE OPERATOR Unavailable [phone] Allergies No known active allergies Medications LORazepam (Ativan) 0.5 MG tabletIndications :ELADIO (generalized anxiety disorder) Take 1 tablet (0.5 mg) by mouth 3 (three) times a day as needed for anxiety for up to 10 days 30 tablet 01/07/20 25 Active Glucose Blood (Blood Glucose Test) stripIndications: Type 2 diabetes mellitus without complication, without long-term current use of insulin ([facility]) 1 each by In Vitro route Daily 100 strip 3 01/31/20 25 026 Active albuterol HFA 90 mcg/act inhalerIndication s:Chronic obstructive pulmonary disease, unspecified COPD type ([facility]) Inhale 2 puffs every 4 (four) hours if needed for wheezing 18 g 3 02/26/20 25 Active Abrysvo 120 MCG/0.5ML reconstituted solution 12/21/19 25 Active Fluticasone-Umecl idin-Vilant (Trelegy Ellipta) 200-62.5-25 MCG/ACT aerosol powderIndications :Asthma with COPD (chronic obstructive pulmonary disease) ([facility]) Inhale 1 Inhalation Daily 3 each 1 05/06/20 25 025 Active Fluticasone-Umecl idin-Vilant (Trelegy Ellipta) 200-62.5-25 MCG/ACT aerosol powderIndications :Asthma with COPD (chronic obstructive pulmonary disease) ([facility]) Inhale 1 Inhalation Daily 3 each 1 05/06/20 25 025 Active atorvastatin (Lipitor) 40 MG tabletIndications :Hyperlipidemia, unspecified Take 1 tablet (40 mg) by mouth at bedtime 100 tablet 06/05/20 25 025 Active cholecalciferol (Vitamin D-3) 50 MCG (1999 UT) tabletIndications :Vitamin D deficiency Take 1 tablet (50 mcg) by mouth Daily 100 tablet 06/05/20 25 025 Active metFORMIN (Glucophage) 500 MG tabletIndications :Type 2 diabetes mellitus without complications ([facility]) Take 1 tablet (500 mg) by mouth Daily 100 tablet 06/05/20 25 025 Active omeprazole (PriLOSEC) [address] capsuleIndication s:Gastro-esophage al reflux disease without esophagitis Take 1 capsule (20 mg) by mouth Daily 100 capsule 06/05/20 25 025 Active losartan (Cozaar) 50 MG tabletIndications :Primary hypertension Take 1 tablet (50 mg) by mouth Daily 100 tablet 06/05/20 25 025 Active albuterol (2.5 MG/3ML) 0.083% nebulizer solutionIndicatio ns:Chronic obstructive pulmonary disease, unspecified COPD type ([facility]) Take 3 mL (2.5 mg) by nebulization every 6 (six) hours if needed for wheezing 75 mL 1 06/09/20 25 Active sertraline (Zoloft) 100 MG tabletIndications :Depression, unspecified,Gener alized anxiety disorder Take 1 tablet (100 mg) by mouth Daily 100 tablet 06/26/20 25 025 Active busPIRone (Buspar) 5 MG tabletIndications :Generalized anxiety disorder Take 1 tablet (5 mg) by mouth in the morning and 1 tablet (5 mg) before bedtime. 180 tablet 06/26/20 25 025 Active furosemide (Lasix) 20 MG tabletIndications :Edema of both lower legs Take 1 tablet (20 mg) by mouth Daily 30 tablet 1 08 025 Active sertraline (Zoloft) 50 MG tabletIndications :Depression, unspecified Take 1 tablet (50 mg) by mouth Daily 100 tablet 06/05/20 Discontinu ed(Reorder ) cephalexin (Keflex) 500 MG capsuleIndication s:Cellulitis of left lower extremity Take 1 capsule (500 mg) by mouth in the morning and 1 capsule (500 mg) before bedtime. Do all this for 7 days. 14 capsule 06/26/20 025 Active Problems Problem Noted Date Diagnosed Date Edema of both lower legs 06/26/2025 Assessment & Plan (06/26/2025 11:10 AM EDT): Otoniel wrap applied to both legs and cannot tolerate compression stockings Will add lasix Check labs 07/06/25 Limit sodium Cellulitis 06/26/2025 Assessment & Plan (06/26/2025 11:11 AM EDT): Secondary to leg swelling, will cover w atb d/t left leg Denies fever or chills Iron deficiency 06/13/2025 Abnormal CBC 06/13/2025 Encounter for subsequent [facility] wellness visit (AWV) in Medicare patient 04/16/2025 OA (osteoarthritis) 04/01/2025 Acquired hypothyroidism 03/25/2025 Assessment & Plan (06/26/2025 5:02 AM EDT): No current meds Initial test TSH was elevated in 03/08: 4.718, recheck 1 month later 2.663, free T 4 WNL as well Elevated TSH 02/19/2025 Generalized anxiety disorder 02/06/2025 Assessment & Plan (06/26/2025 11:11 AM EDT): Will increase dose of sertraline to 100mg Add buspar Fu in 4 weeks Assessment & Plan (02/06/2025 10:43 AM EDT): Takes ativan prn, and sertraline Cigarette nicotine dependence without complicati on 01/23/2025 Assessment & Plan (06/26/2025 5:02 AM EDT): Has not smoked since [facility] Assessment & Plan (02/06/2025 10:33 AM EDT): Has not smoked since [facility] Assessment & Plan (01/23/2025 6:53 AM EDT): The patient has been advised of the risks of continued smoking: stroke, MO, all forms of cancer, lung disease, and . Options for quitting smoking include: cold turkey, hypnosis, acupuncture, nicotine replacement meds (gum, lozenges, and patches), Buproprion, and Varenicline. At this time pt is encouraged to evaluate their goals for wanting to quit smoking, and reach out to provider when ready to start this process Scalp laceration, sequela 01/23/2025 Assessment & Plan (01/23/2025 1:10 PM EDT): No s/s infection Neuro exam is normal I do not suspect her fever is related to this Suspect possible resp COPD exacerbation 01/23/2025 Assessment & Plan (01/23/2025 1:09 PM EDT): Will add augmentin, no cxr at this time, can cont albuterol prn and trelegy as directed Fluids, and encourage cough and deep breathing If worsening in sxs go to Er Acute hypoxic respiratory failure 12/24/2024 Assessment & Plan (02/06/2025 10:25 AM EDT): Wears oxygen at home Inhalers: trelegy, albuterol Assessment & Plan (01/14/2025 9:54 AM EST): SpO2 stable and wean oxygen as tolerated. Vitamin D deficiency 06/21/2024 Overview (06/21/2024): Have vitamin D levels redrawn. Assessment & Plan (02/06/2025 6:27 AM EDT): Taking supplement 2,000 international units daily Check labs Dermoid cyst of right ear 06/21/2024 Overview (06/21/2024): Referral sent to ENT Right acoustic neuroma 02/23/2024 Myelopathy 02/23/2024 Overview (02/23/2024): Patient admits to gait instability and recurrent falls. She denies dizziness or lightheadedness. MRI cervical spine showed moderate central and bilateral foraminal narrowing at C4/5. She has no neckpain or radicular symptoms. We discussed the high morbidity and mortality associated with falls and the fat that she has multiple risk factors that increases her chance of falls. We discussed fall precautions at length including taking up throw rugs, changing position slowly, maintaining hydration, having a light on at night, grab bars in the shower and ensuring pets are not a tripping yin if applicable. Recurrent falls 02/23/2024 Overview (02/23/2024): Gait instability is likely multifactoral with sensory loss on exam suggesting a polyneuropathy and moderate cervical stenosis superimposed on baseline history of acoustic neuroma. Demyelinating disease 02/23/2024 Primary hypertension 01/26/2024 Assessment & Plan (06/26/2025 5:01 AM EDT): Please check blood pressure daily and record DASH diet Limit caffeine Take medication as directed Contact office if chest pain, pressure, dizziness, shortness of breath, swelling legs Recommend slow position changes Current meds: losartan Assessment & Plan (02/06/2025 6:25 AM EDT): Please check blood pressure daily and record DASH diet Limit caffeine Take medication as directed Contact office if chest pain, pressure, dizziness, shortness of breath, swelling legs Recommend slow position changes Current meds: losartan Assessment & Plan (01/14/2025 9:55 AM EST): BP controlled and monitor PRN. Assessment & Plan (09/20/2024 10:52 AM EST): Currently taking Losartan-hydrochlorothiazide 50/12.5mg Checks BP at home; Bp log shows several low BP readings in the 90's systolic. Will decrease losartan hydrochlorothiazide today. Eliminate hydrochlorothiazide. Losartan 50mg only Given BP log, advised pt to record BP and bring log back with them to next visit. Assessment & Plan (06/21/2024 10:38 AM EDT): BP looks good in office today 128/68 Continue Losartan-hydrochlorothiazide Have bloodwork completed Assessment & Plan (03/08/2024 3:53 PM EDT): She used to be on losartan and aldactone Patient was started on low dose losartan-hydrochlorothiazide BP at goal now. C/w same Assessment & Plan (01/26/2024 3:51 PM EDT): She used to be on lisinopril/losartan BP above goal. Will start on low dose losartan-hydrochlorothiazide Follow up in one month. Maintain BP log - bring home BP Log next appointment. Check BMP in a few weeks Other hyperlipidemia 11/21/2023 Assessment & Plan (02/06/2025 6:32 AM EDT): On statin therapy Check labs yearly and prn dose changes Assessment & Plan (09/20/2024 10:52 AM EST): Currently taking Atorvastatin 40mg Denies any myalgias. Continue current regimen. Assessment & Plan (06/21/2024 10:34 AM EDT): Continue Atorvastatin as directed Have labwork done Assessment & Plan (11/21/2023 3:42 PM EST): On Lipitor 40 mg. Lipid panel 08/06 - elevated LDL, TAG and cholesterol likely due to non compliance. Now using Lipitor regularly. Recheck before next appt. 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 loss 11/21/2023 Assessment & Plan (02/06/2025 6:27 AM EDT): Takes supplement daily Check labs Assessment & Plan (06/21/2024 10:33 AM EDT): Continue Ferrous Gluconate as directed Have bloodwork completed Assessment & Plan (01/26/2024 3:42 PM EDT): Iron deficiency anemia. Unable to tolerate PO iron pills. She was asked to use Iron every other day. Iron profile shows improvement. She was referred to GI but forgot about it. She was given office information to call and make an appointment for colonoscopy. Assessment & Plan (11/21/2023 3:43 PM EST): Iron deficiency anemia. Unable to tolerate PO iron pills. Reports diarrhea, GI upset if she uses them daily. Never had Colonoscopy. Referred to GI for Colonoscopy Recheck Iron levels. If persistently low, will need IV iron for iron deficiency anemia, as unable to replenish iron stores with PO iron due to GI side effects. Type 2 diabetes mellitus wit hout complication, without long-term current use of insulin 11/21/2023 Assessment & Plan (06/26/2025 5:01 AM EDT): Check blood sugars daily, notify if <70 [...] arb, metformin, statin A1c: 6.0% on 02/18/25 Assessment & Plan (02/06/2025 10:31 AM EDT): Check blood sugars daily, notify if <70 [...] simple sugars. Current med: arb, metformin, statin Assessment & Plan (01/14/2025 9:55 AM EST): BS controlled and monitor. Stick to ADA diet and limit carbs. Assessment & Plan (09/20/2024 10:53 AM EST): Currently taking Metformin 500mg Most recent labs: [...] persistent hypoglycemia/hyperglycemia on home glucose monitoring noted. Assessment & Plan (06/21/2024 10:33 AM EDT): Continue Metformin as directed Have A1C rechecked. May need to consider additional treatment if A1c is still elevated Assessment & Plan (03/08/2024 3:53 PM EDT): Most recent labs: hemoglobin A1C 23 - 5.6 Average FSBS range from BGs consistently in an acceptable range No episode of hypoglycemia No medication adverse [...] persistent hypoglycemia/hyperglycemia on home glucose monitoring noted. On Metformin. Assessment & Plan (01/26/2024 3:50 PM EDT): Most recent labs: hemoglobin A1C 23 - 5.6 Average FSBS range from BGs consistently in an acceptable range No episode of hypoglycemia No medication adverse [...] persistent hypoglycemia/hyperglycemia on home glucose monitoring noted. On Metformin. Check A1C Assessment & Plan (11/21/2023 3:41 PM EST): Most recent labs: hemoglobin A1C /23 - 5.6 Average FSBS range from BGs consistently in an acceptable range No episode of hypoglycemia No medication adverse [...] persistent hypoglycemia/hyperglycemia on home glucose monitoring noted. On Metformin. Recurrent major depressive disorder, in full rem ission 11/21/2023 Assessment & Plan (02/06/2025 10:43 AM EDT): Takes sertraline daily Assessment & Plan (01/26/2024 3:42 PM EDT): Well controlled on Zoloft. No SI/HI. Assessment & Plan (11/21/2023 3:42 PM EST): Well controlled on Zoloft. No SI/HI. Screening mammogram, encounter for 11/21/2023 Assessment & Plan (11/21/2023 3:44 PM EST): Ordered mammogram for the patient. Sensorineural hearing loss (SNHL) of right ear 1 Positive fecal occult blood test 11/29/2019 COPD (chronic obstructive pulmonary disease) Assessment & Plan (06/26/2025 5:01 AM EDT): Wears oxygen at home Current meds: albuterol, trelegy Assessment & Plan (02/06/2025 6:23 AM EDT): Wears oxygen at home Current meds: albuterol, trelegy Assessment & Plan (01/14/2025 9:54 AM EST): Breathing stable and continue inhalers. Use albuterol nebulized PRN. Script for new nebulizer machine to patient. Assessment & Plan (09/20/2024 10:27 AM EST): Currently taking Trelegy Daily and Albuterol PRN No exacerbations recently Reports using rescue inhaler 3 times per month. Continue current regimen Assessment & Plan (06/21/2024 10:32 AM EDT): Continue Trelegy Daily and the Albuterol PRN Symptoms appear to be well managed Assessment & Plan (03/08/2024 3:52 PM EDT): PFTs c/w severe obs pathern. Asthma-COPD overlap. She was switched to Trelegy. She feels much better on it. She is using rescue inhaler once a day. She was previously using it 3-4/day. Assessment & Plan (01/26/2024 3:39 PM EDT): PFTs c/w severe obs pathern. Asthma-COPD overlap. Symptoms improved with Wixela but she feels out of breath on exertion. Used her rescue inhaler 3-4 times/week Will switch her to Trelegy. Assessment & Plan (01/26/2024 3:38 PM EDT): >>ASSESSMENT AND PLAN FOR MODERATE PERSISTENT ASTHMA WITHOUT COMPLICATION ([facility]) WRITTEN ON 11/21/2023 3:40 PM BY SHAIKH HERO MD Uses albuterol as needed. Never had PFTs. Current smoker, down to 2-3 cigarettes a day. Recent asthma exacerbation - did not require ED or office visit. Uses albuterol almost daily, eunice in damp/cold weather. Ordered PFTs Started on Wixela. Patient counseled and educated on adverse effects, drug interactions and to reach out to office/pharmacy if questions or concerns related to new medications. Resolved Problems Problem Noted Date Diagnosed Date Resolved Date Influenza A 01/14/2025 02/06/2025 Assessment & Plan (01/14/2025 9:54 AM EST): Recent infection but improved and monitor. Acoustic neuroma 01/26/2024 02/06/2025 Overview (02/23/2024): 68-year-old female who is being seen in outpatient neurological consultation request of Dr Sánchez for acoustic neuroma on the right. Medical history includes bursitis, GERD, hypertension, hyperlipidemia, depressions, iron deficiency anemia, vitamin D deficiency, and diabetes mellitus type 2. Patient presented to [facility] for monitoring of acoustic neuroma initially diagnosed in 2014. At that time she had the acoustic neuroma surgically removed. She was told there was reoccurrence in 2017. 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 Repeat MRI,as below, without evidence of mass or abnormal enhanceent. Current smoker 11/21/2023 01/23/2025 Assessment & Plan (11/21/2023 3:44 PM EST): Down to 2-3 cigarettes a day. Encouraged the patient. She will attempt to quit completely in upcoming days. Encounters Date Type Department Care Team Description 07/04/2025 Patient Outreach [facility] [address] [place] [address] Arturo Chanel MA 06/26/2025 10:30 AM EDT Office Visit [facility] [address] [place] [address] La Pack NP Edema of both lower legs (Primary Dx); Primary hypertension ; Chronic obstructive pulmonary disease, unspecified COPD type (HCC); Type 2 diabetes mellitus without complication, without long-term current use of insulin (HCC); Cigarette nicotine dependence without complication; Depression, unspecified ; Generalized anxiety disorder ; Cellulitis of left lower extremity 06/26/2025 Bamboo flowsheet [facility] [address] [place] [address] La Pack NP 06/13/2025 Orders Only [facility] [address] [place] [address] La Pack, GREG Iron deficiency (Primary Dx); Abnormal CBC 06/07/2025 Refill [facility] [address] [place] [address] Ian Rader MD Chronic obstructive pulmonary disease, unspecified COPD type (HCC) 06/05/2025 Refill [facility] [address] [place] [address] La Pack, GREG Primary hypertension (Primary Dx); Hyperlipidemia, unspecified ; Vitamin D deficiency; Type 2 diabetes mellitus without complications (HCC); Gastro-esophageal reflux disease without esophagitis; Depression, unspecified 06/05/2025 Orders Only [facility] [address] [place] [address] La Pack NP 05/07/2025 Abstract [facility] [address] [place] [address] La Pack NP 05/06/2025 Refill [facility] [address] [place] [address] La Pack NP Asthma with COPD (chronic obstructive pulmonary disease) (HCC) 05/06/2025 Patient Outreach [place] [address] [place] [address] Arturo Chanel MA 04/22/2025 Refill [facility] [address] [place] [address] Ian Rader MD Hyperlipidemia, unspecified from Last 3 Months Immunizations Immunization Administration Dates Next Due Influenza, High-dose Seasona l, Quadrivalent, Preservative Free 08/14/2023 Pneumococcal Conjugate PCV 20 12/31/2024 SARS-COV-2 (COVID-19) vaccin e, mRNA, spike protein, LNP, bivalent, preservative free, 30 mcg/0.3 mL dose, carolyn-sucrose formulation 12/27/2024 Family History Medical History Relation Name Comments Coronary artery disease Father Diabetes Father Hypertension Father Sepsis Father Uterine cancer Mother Relation Name Status Comments Father Mother Social History Tobacco Use Types Packs/Day Years Used Date Smoking Tobacco: Every Day Cigarettes Passive Smoke Exposure: Current Smokeless Tobacco: Never Tobacco Cessation:Ready to Q uit: Not Asked; Counseling Given: Not Answered Alcohol Use Standard Drinks/Week Comments Never 0 (1 standard drink = 0.6 oz pur e alcohol) Caffeine: 2-3 cups per day PHQ-2 Answer Date Recorded Patient Health Questionnaire-2 Score 0 03/08/2024 Comments No Sex and Gender Information Value Date Recorded Sex Assigned at Not on file Legal Sex Female 6:34 PM EDT Gender Identity Not on file Sexual Orientation Not on file Last Filed Vital Signs Vital Sign Reading Time Taken Comments Blood Pressure 126/84 06/26/2025 10:26 AM EDT Pulse 85 06/26/2025 10:26 AM EDT Temperature 36.9 C (98.4 F) 06/26/2025 10:26 AM EDT Respiratory Rate 20 06/26/2025 10:26 AM EDT Oxygen Saturation 96% 06/26/2025 10:26 AM EDT Inhaled Oxygen Concentration - - Weight 64.1 kg (141 lb 6.4 oz) 02/06/2025 10:08 AM EDT Height 160 cm (5' 3 ) 01/23/2025 11:44 AM EDT Body Mass Index 25.05 01/23/2025 11:44 AM EDT Plan of Treatment Upcoming Encounters Date Type Department Care Team (Late st Contact Info) Description 07/31/2025 11:00 AM EDT Office Visit [facility] [address] [place] [address] La Pack NP [address] [place] [address] Health Maintenance Due Date Last Done Comments CT Colonography 1955 Colonoscopy 1955 FIT 1955 FOBT 1955 Sigmoidoscopy 1955 Influenza Vaccine (#1) 2025 08/14/2023 Diabetes: Hemoglobin A1C 08/20/2025 025, 09/20/2024, 07/15/2023 Colorectal Cancer Screening 11/14/2025 FIT-DNA 11/14/2025 11/14/2022 Diabetes: Urine Protein Screening 02/18/2026 025, 01/12/2024 Mammogram 02/18/2026 02/18/2025, 01/16/2024 Medicare Annual Wellness (AWV) 05/08/2026 0 05/08/2025 (Patient Refused), 03/08/2024 Diabetes: Retinopathy Screening 01/30/2027 01/30/2025, 01/08/2025, 03/14/2023 Pneumococcal Vaccine: 65+ Years Completed Procedures Procedure Name Priority Date/Time Associated Diagnosis Comments SCANNED LABS Routine 06/05/2025 9:11 AM EDT MM TOMOSYNTHESIS SCREENING BI 02/18/2025 3:53 PM EDT DIABETIC RETINOPATHY SCREENING - OU - BOTH EYES Routine 01/30/2025 3:23 PM EDT POCT GLYCOSYLATED HEMOGLOBIN (HGB A1C) Routine 09/20/2024 10:56 AM EST Type 2 diabetes mellitus without complication, without long-term current use of insulin (HCC) from Last 3 Months or Most Recently Relevant to Health Maintenance Results * SCANNED LABS (06/05/2025 9:11 AM EDT) La Pack GENERAL MACHINE OPERATOR LAB CHG PERFORMABLES Final Resu lt * MM TOMOSYNTHESIS SCREENING BI (02/18/2025 3:53 PM EDT) Anatomical Region Laterality Modality Other 02/18/2025 3:53 PM EDT Narrative 02/18/2025 3:54 PM EDT The [address] [address] Mammography Report Signed Patient: ZULEYKA CHAUDHRY MR#: [id number] : 1955 Acct:[id number] Age/Sex: 69 / F ADM Date: 02/18/25 Loc: MAMMO Attending Dr: La Pack NP Ordering Physician: La Pack NP Results: Date of Service: 02/18/25 Follow Up: Procedure(s): MM tomosynthesis screening BI Accession Number(s): [id number] cc: La Pack NP Patient Name: ZULEYKA CHAUDHRY MR#: [id number] : 1955 Exam Date: 02/18/2025 Ordering Doctor: [...] uterine cancer at age 53. LOCATION: The [facility] BREAST COMPOSITION: The breasts are almost entirely [...] Signed By: 02/18/25 1554 DD/ 1553 TD/TT: Woodwind Instrument Repairer: Procedure Note Radiology, Radiologist, - 02/18/2025 [place] [address] Mammography Report Signed Patient: ZULEYKA CHAUDHRY MMR#: [id number] : 1955cct:[id number] Age/Sex: 69 / FADM Date: 02/18/25 Loc: MAMMO Attending Dr: La Pack NP Ordering Physician: La Packesults: Date of Service: 02/18/25Follow Up: Procedure(s): MM tomosynthesis screening BI Accession Number(s): [id number] cc: La Pack NP Patient Name: ZULEYKA CHAUDHRY MR#: [id number] : 1955 Exam Date: 02/18/2025 Ordering Doctor: RISHABH Pack CNP RADIOLOGY REPORT PROCEDURE: MM TOMOSYNTHESIS SCREENING BI COMPARISON: MM TOMOSYNTHESIS SCREENING BI, 01/16/2024. MG MAMM [id number] EDINSON CAD, 08/11/2021. MG MAMM SCREEN EDINSON W CAD, 07/04/2020. MG MAMM BILSCRN W CAD DIG, 05/02/2015. INDICATIONS: Screening for malignant neoplasm Calculator Name NCI Breast Cancer Risk Assessment Tool 5 Year Breast Cancer Risk 1.10% Lifetime Breast Cancer Risk 3.20% Personal Breast Cancer No Personal Ovarian Cancer No Treatments None Family Cancers Mother with uterine cancer at age 55. LOCATION: The [facility] BREAST COMPOSITION: The breasts are almost entirely [...] 15:53 Dictated By: Ryan Ugalde M.D. Signed By:02/18/25 1554 DD/ 1553 TD/TT: [employer] Instrument Repairer: La Pack NP [facility] Final Result * Diabetic Retinopathy Screening - OU - Both Eyes (01/30/2025 3:23 PM EDT) Anatomical Region Laterality Modality Head Other Ina Rader MD [employer] Final Result * POCT glycosylated hemoglobin (Hb A1C) docked device (09/20/2024 10:56 AM EST) Hemoglobin A1C 6.1 Blood Venous blood specimen / Unknown 09/20/2024 10:56 AM EST Jhoana Cardoso GENERAL MACHINE OPERATOR POINT OF CARE TEST ENTER /EDIT ORDERABLES Final Result from Last 3 Months or Most Recently Relevant to Health Maintenance Insurance [employer] Care Teams Apricot Packer Relationship Specialty Start Date End Date Shaikh Sánchez MD [address] [place] [address] PCP - Linda MORALES 11/14/23 Ian Rader MD [address] [place] [address] PCP - General Family Medicine 09/11/24 Zamzam Wheeler NP [address] [place] [address] Nurse Practitioner Internal Medicine 01/16/24 La Pack NP [address] [place] [address] Nurse Practitioner Family Medicine 02/06/25
--- OUTSIDE RECORDS SUMMARY | 2025-07-10 10:57 | XMS_ITS | Encounter Summary ---
Author Organization [facility] Healthcare Address [address] [place] [address] Care Team Providers Care Elevator Tender Name Role Phone Shaikh KEV Sánchez Unavailable [phone] Zamzam Wheeler FIBER OPTIC ASSEMBLY WORKER Unavailable Ian Rader MD Primary Care Provider [phone] Arturo Chanel MA Unavailable [phone] La Pack NP Unavailable [phone] Encounter Details Date Type Department Care Team (Late st Contact Info) Description 07/04/2025 Patient Outreach [facility] [address] [place] [address] Arturo Chanel MA [address] [place] [address] Social History Tobacco Use Types Packs/Day Years [...] on file documented as of this encounter Progress Notes * Arturo Chanel MA - 07/04/2025 1:26 PM EDT 3rd attempt to contact pt, but contact #'s are not working. [phone] # gives a fast busy signal, 765 just rings and then disconnects. 547# will not connect. Will push outreach call to next month and will attempt to reach pt again and update care plan as well. At this point we will have transitioned to [facility]. documented in this encounter Plan of Treatment Upcoming Encounters Date Type Department Care Team (Late st Contact Info) Description 07/31/2025 11:00 AM EDT Office Visit [facility] [address] [place] [address] La Pack NP [address] [place] [address] documented as of this encounter Visit Diagnoses Diagnosis Type 2 diabetes mellitus without complication, unspecified whether bin tripper operator insulin use (HCC)- Primary Asthma with COPD (chronic obstructive pulmonary disease) (HCC) Chronic obstructive pulmonary disease, unspecified COPD type (HCC) documented in this encounter Additional Health Concerns Assessment Noted Time PHQ-9 Depression Total Score: 1 03/08/20 24 3:39 PM EDT documented as of this encounter Care Teams Elevator Tender Relationship Specialty Start Date End Date Shaikh Sánchez MD [address] [place] [phone] PCP - Linda MORALES 11/14/23 Ian Rader MD [address] [place] [address] PCP - General Family Medicine 09/11/24 Zamzam Wheeler NP [address] [place] [address] Nurse Practitioner Internal Medicine 01/16/24 Arturo Chanel MA [address] [place] [address] Family Medicine 09/24/24 07/09/25 La Pack NP [address] [place] [address] Nurse Practitioner Family Medicine 02/06/25 documented as of this encounter
--- OUTSIDE RECORDS SUMMARY | 2025-07-10 10:57 | XMS_ITS | Encounter Summary ---
Author Organization [facility] Address [address] [place] [address] Care Team Providers Care Dry Chain Worker Name Role Phone Shaikh KEV Sánchez Unavailable [phone] Zamzam Wheeler METAL SPRAYER MACHINED PARTS Unavailable Ian Rader MD Primary Care Provider [phone] Arturo Chanel MA Unavailable [phone] La Pack NP Unavailable [phone] Encounter Details Date Type Department Care Team (Late Contact Info) Description 06/05/2025 Orders Only [facility] [address] [place] [address] La Pack NP [address] [place] [address] Social History Tobacco Use Types Packs/Day Years [...] Visit [facility] [address] [place] [address] La Pack NP [address] [place] [address] documented as of this encounter Procedures Procedure Name Priority Date/Time Associated Diagnosis Comments SCANNED LABS Routine 06/05/2025 9:11 AM EDT documented in this encounter Results * SCANNED LABS (06/05/2025 9:11 AM EDT) us La Pack METAL SPRAYER MACHINED PARTS LAB CHG PERFORMABLES Final Resu lt documented in this encounter Visit Diagnoses Not on filedocumented in this encounter Additional Health Concerns Assessment Noted Time PHQ-9 Depression Total Score: 1 03/08/20 24 3:39 PM EDT documented as of this encounter Care Teams Dry Chain Worker Relationship Specialty Start Date End Date Shaikh Sánchez MD [address] [place] [address] PCP - Linda MORALES 11/14/23 Ian Rader MD [address] [place] [address] PCP - General Family Medicine 09/11/24 Zamzam Wheeler NP [address] [place] [address] Nurse Practitioner Internal Medicine 01/16/24 Arturo Chanel MA [address] [place] [address] Family Medicine 09/24/24 07/09/25 La Pack NP [address] [place] [address] Nurse Practitioner Family Medicine 02/06/25 documented as of this encounter
--- OUTSIDE RECORDS SUMMARY | 2025-07-10 10:57 | XMS_ITS | Encounter Summary ---
Author Organization [facility] Address [address] [place] [address] Care Team Providers Care Small Order Cutter Name Role Phone Shaikh KEV Sánchez Unavailable [phone] Zamzam Wheeler DISPATCH OFFICER Unavailable Ian Rader MD Primary Care Provider Arturo Chanel MA Unavailable [phone] La Pack NP Unavailable [phone] Encounter Details Date Type Department Care Team (Late Contact Info) Description 05/07/2025 [facility] [address] [place] [address] La Pack, DISPATCH OFFICER [address] [place] [address] Social History Tobacco Use Types Packs/Day Years [...] Upcoming Encounters Date Type Department Care Team ([facility] Contact Info) Description 07/31/2025 11:00 AM EDT Office Visit [facility] [address] [place] [address] La Pack, GREG [address] [place] [address] documented as of this encounter Visit Diagnoses Not on filedocumented in this encounter Additional Health Concerns Assessment Noted Time PHQ-9 Depression Total Score: 1 03/08/20 3:39 PM EDT documented as of this encounter Care Teams Small Order Cutter Relationship Specialty Start Date End Date Shaikh Sánchez MD [address] [place] [phone] PCP - Linda MORALES 11/14/23 Ian Rader MD [address] [place] [address] PCP - General Family Medicine 09/11/24 Zamzam Wheeler NP [address] [place] [address] Nurse Practitioner Internal Medicine 01/16/24 Arturo Chanel LA [address] [place] [address] Family Medicine 09/24/24 07/09/25 La Pack, GREG [address] [place] [phone] Nurse Practitioner Family Medicine 02/06/25 documented as of this encounter
--- OUTSIDE RECORDS SUMMARY | 2025-07-10 10:57 | XMS_ITS | Encounter Summary ---
Author Organization [facility] Address [address] [facility] [place] [address] Care Team Providers Care Research Pharmacist Name Role Phone Shaikh KEV Sánchez Unavailable [phone] Zamzam Wheeler TRUCK LOADER AND UNLOADER Unavailable Ian Rader MD Primary Care Provider [phone] Arturo Chanel MA Unavailable [phone] La Pack NP Unavailable [phone] Encounter Details Date Type Department Care Team (Late st Contact Info) Description 06/26/2025 Bamboo flowsheet [facility] [address] [place] [address] La Pack, TRUCK LOADER AND UNLOADER [address] [place] [address] Social History Tobacco Use Types Packs/Day Years [...] [facility] [address] [place] [address] La Pack, GREG [address] [place] [address] documented as of this encounter Visit Diagnoses Not on filedocumented in this encounter Additional Health Concerns Assessment Noted Time PHQ-9 Depression Total Score: 1 03/08/20 3:39 PM EDT documented as of this encounter Care Teams Research Pharmacist Relationship Specialty Start Date End Date Shaikh Sánchez MD [address] [place] [phone] PCP - Linda MORALES 11/14/23 Ian Rader MD [address] [place] [address] PCP - General Family Medicine 09/11/24 Zamzam Wheeler NP [address] [place] [phone] Nurse Practitioner Internal Medicine 01/16/24 Arturo Chanel MA [address] [place] [address] Family Medicine 09/24/24 07/09/25 La Pack, GREG [address] [place] [address] Nurse Practitioner Family Medicine 02/06/25 documented as of this encounter
[2025-07-10 11:18] LABS: Hematocrit 39.8 % (36.0-48.0); Hemoglobin 12.0 g/dL (12.0-16.0); Immature Granulocytes Abs Auto 0.02 10^3/uL (0.00-0.03); Immature Granulocytes Pct Auto 0.3 % (0.0-0.5); Lymphocytes Absolute Auto 0.8 10^3/uL (1.2-3.8); Mean Corpuscular HGB Conc 30.2 g/dL (29.9-35.2); Mean Corpuscular Hemoglobin 27.1 pg (26.7-34.0); Mean Corpuscular Volume 89.8 fL (81.0-99.0); Platelet Count 294 10^3/uL (150-450); Red Blood Count 4.43 10^6/uL (4.20-5.40); White Blood Count 7.0 10^3/uL (4.0-11.0)
--- OUTSIDE RECORDS SUMMARY | 2025-07-10 11:37 | XMS_ITS | CCD ---
Author Organization [facility] Care Team Providers Care Electric Train Driver Name Role Phone CHALO, DR GIANNA PACHECO [...] Consulting Unavailable SHAIKH SÁNCHEZ Primary Care Physician [phone] Windnagel, Zamzam Admitting Unavailable Windnagel, Zamzam Referring Unavailable Windnagel, Zamzam Attending Unavailable Windnagel, Zamzam Referring Unavailable Windnagel, Zamzam Attending Unavailable Windnagel, Zamzam Admitting Unavailable Shaikh Sánchez MD Unavailable [place] PIPELINE GANG SUPERVISOR, Zamzam C Unavailable Shaikh Sánchez MD Primary Care Provider Kirstin Carreon LPN Unavailable Unavailable Ian Soares MD Primary Care Provider Daniel Cadroso NP Unavailable [phone] Gustavo Romero LPN Unavailable Unavailable [place] PIPELINE GANG SUPERVISOR, Zamzam C Unavailable [phone] Arturo Chanel MA Unavailable Unavailable Walker PIPELINE GANG SUPERVISOR-CDaniel Primary Care Provid er Ramos ANGULO, Soco Admit Provider Daniel Garza MD Attending Provider Sara ANGULO, Cecilia Other Provider Hernandez ANGULO, Suzette Other Provider Jeancarlos ANGULO, Ryan Other Provider Ilana Mendoza APRN Other Provider Hubert Mcguire DO Other Provider Beni ANGULO, Dave Hidalgo Other Provider PROVIDER, UNKNOWN Attending Unavailable PROVIDER, UNKNOWN Admitting Unavailable Gianna Isabel MD Primary Care Provider Unava thiagoable Liam PIPELINE GANG SUPERVISOR, Zamzam C Unavailable Walker PIPELINE GANG SUPERVISOR, Daniel Unavailable [phone] Ramone PIPELINE GANG SUPERVISOR, La Unavailable Daniel Cardoso N Primary Care Unavaila Soco Banks Admitting Unavailable Daniel Garza Attending Unavailable Suzette Ng Consulting Unavailable Ryan Arshad Consulting Unavailable Ilana Mendoza Consulting Unavailable Hubert Mcguire Jr Consulting Unavailabl e Dave Bazan Consulting Unavaila iveth Ruiz, Cecilia Consulting Unavailable Arturo Chanel MA Unavailable IAN SOARES Attending Unavailable LA PACK Attending Unavailable LA PACK Attending Unavailable LA PACK Attending Unavailable DANIEL CARDOSO Attending Unavailrocky e Medications Current Medications Medication Drug Class(es) Dates Sig (Normalized) Sig (Original) Abrysvo 120 MCG/0.5ML reconstituted solution (8 sources) Start: 12-21-2024 Abrysvo 120 MCG/0.5ML reconstituted solution 12/21/2024 Active acetaminophen 500 mg oral capsule (1 source) Start: 01-04-2025 take 1 capsule by mouth every six hours as needed Acetaminophen 500 mg capsule Active 500 MG PO Every 6 hours as needed January 04, 2025 12:00am albuterol 0.83 mg/ml inhalation solution (20 sources) beta2-Adrenergic Agonist Start: 02-12-2025 End: 07-09-2025 albuterol (2.5 MG/3ML) 0.083% nebulizer solution Indications: Chronic obstructive pulmonary disease, unspecified COPD type (HCC) Take 3 mL (2.5 mg) by nebulization every 6 (six) hours if needed for wheezing 75 mL 1 06/09/2025 Active Start: 12-10-2024 Albuterol Sulf ate 90 mcg/actuation HFA aerosol inhaler Active INHALATION December 10, 2024 12:00am Start: 06-21-2024 End: 02-25-2025 take 2 puff(s) by inhalation every four hours for wheezing albuterol HFA 90 mcg/act inhaler Indications: Chronic obstructive pulmonary disease, unspecified COPD type (HCC) Inhale 2 puffs every 4 (four) hours if needed for wheezing 18 g 3 02/25/2025 Active albuterol (2.5 M G/3ML) 0.083% nebulizer [...] tablet (20 sources) HMG-CoA Reductase Inhibitor Start: 04-22-2025 End: 09-13-2025 take 1 tablet by mouth at bedtime atorvastatin (Lipitor) 40 MG tablet Indications: Hyperlipidemia, unspecified Take 1 tablet (40 mg) by mouth at bedtime 100 tablet 06/05/2025 09/13/2025 Active Start: 01-22-2025 take 1 tablet by angie th once daily atorvastatin (Lipitor) 40 MG tablet Indications: Hyperlipidemia, unspecified (CMS/HCC) Take 1 tablet (40 mg) by mouth Daily 90 tablet 01/22/2025 Active Start: 01-09-2018 End: 01-04-2025 take 1 tablet by mouth once daily atorvastatin (Lipitor) 40 MG tablet Indications: Hyperlipidemia, unspecified (CMS/HCC) Take 1 tablet (40 mg) by mouth Daily 90 tablet 09/11/2024 Active busPIRone hydrochloride 5 mg oral tablet (3 sources) Start: 06-26-2025 End: 09-24-2025 take 1 tablet by mouth in the morning busPIRone (Buspar) 5 MG tablet Indications: Generalized anxiety disorder Take 1 tablet (5 mg) by mouth in the morning and 1 tablet (5 mg) before bedtime. 180 tablet 06/26/2025 09/24/2025 Active calcium carbonate 1250 mg / cholecalciferol 200 unt oral tablet (4 sources) Vitamin D take 1 tablet by mouth twice daily at mealtime calcium carbonate-vitamin D3 (CALCIUM 500 + D) 500 mg(1,250mg) -200 units per tablet Take 1 tablet by mouth 2 (two) times a day with meals. Active cephalexin 500 mg oral capsule (2 sources) Cephalosporin Antibacterial Start: 06-26-2025 End: 07-03-2025 take 1 capsule by mouth in the morning cephalexin (Keflex) 500 MG capsule Indications: Cellulitis of left lower extremity Take 1 capsule (500 mg) by mouth in the morning and 1 capsule (500 mg) before bedtime. Do all this for 7 days. 14 capsule 06/26/2025 07/03/2025 Active cholecalciferol 0.05 mg oral tablet (20 sources) Vitamin D Start: 06-21-2024 End: 09-13-2025 take 1 tablet by mouth once daily cholecalciferol (Vitamin D-3) 50 MCG (2000 UT) tablet Indications: Vitamin D deficiency Take 1 tablet (50 mcg) by mouth Daily 100 tablet 06/05/2025 09/13/2025 Active take 1 tablet by mouth once [...] End: 12-06-19 take 1 tablet by mouth in the morning ferrous sulfate (Fe Tabs) 325 (65 Fe) MG EC tablet Indications: 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 loss Take 1 tablet (325 mg) by mouth in the morning and 1 tablet (325 mg) in the evening. Take with meals. Do not crush, chew, or split.. 180 tablet 02/20/2025 05/21/2025 Active ferrous sulfate (IRON ORAL) Take by [...] 200-62.5-25 MCG/ACT aerosol powder (20 sources) Start: 05-06-20 End: 08-04-20 Fluticasone-Umeclidi n-Vilant (Trelegy Ellipta) 200-62.5-25 MCG/ACT aerosol powder Indications: Asthma with COPD (chronic obstructive pulmonary disease) ([facility]) Inhale 1 Inhalation Daily 3 each 1 05/06/2025 08/04/2025 Active Start: 02-25-2025 End: 05-06-2025 Yrpcrktqeym-Wyxbiaiiv-Qjxjmr (Trelegy Ellipta) 200-62.5-25 MCG/ACT aerosol powder Indications: Asthma with COPD (chronic obstructive pulmonary disease) ([facility]) Inhale 1 Inhalation Daily 3 each 1 02/25/2025 05/06/2025 Discontinued (Reorder) Start: 02-25-2025 End: 05-26-2025 Tqsxecrrvyv-Kjyrscdkx-Wxihau (Trelegy Ellipta) 200-62.5-25 MCG/ACT aerosol powder Indications: Asthma with COPD (chronic obstructive pulmonary disease) ([facility]) Inhale 1 Inhalation Daily 3 each 1 02/25/2025 05/26/2025 Active Start: 08-27-2024 End: 02-25-2025 Rbbphizuddx-Iddhhfmbs-Ycnjcr (Trelegy Ellipta) 200-62.5-25 MCG/ACT aerosol powder Indications: Asthma with COPD (chronic obstructive pulmonary disease) ([facility]) Inhale 1 Inhalation Daily 3 each 1 08/27/2024 02/25/2025 Discontinued (Reorder) Start: 08-27-2024 Fluticasone-Um eclidin-Vilant (Trelegy Ellipta) 200-62.5-25 MCG/ACT aerosol powder Indications: Asthma with COPD (chronic obstructive pulmonary disease) ([facility]) Inhale 1 Inhalation Daily 3 each 1 08/27/2024 Active Start: 08-27-2024 End: 11-25-2024 Giqafdsezzc-Vrydrfyui-Eehbuk (Trelegy Ellipta) 200-62.5-25 MCG/ACT aerosol powder Indications: Asthma with COPD (chronic obstructive pulmonary disease) ([facility]) Inhale 1 Inhalation Daily 3 each 1 08/27/2024 11/25/2024 Active Start: 06-11-2024 End: 08-27-2024 Rfsufnonnnj-Wjgwbwpao-Rwotyb (Trelegy Ellipta) 200-62.5-25 MCG/ACT aerosol powder Indications: Asthma with COPD (chronic obstructive pulmonary disease) [place] Inhale 1 Inhalation Daily 3 each 1 06/11/2024 08/27/2024 Discontinued (Reorder) Start: 06-11-2024 End: 09-09-2024 Zbkieszignz-Gedktttzw-Pbaiqf (Trelegy Ellipta) 200-62.5-25 MCG/ACT aerosol powder Indications: Asthma with COPD (chronic obstructive pulmonary disease) [place] Inhale 1 Inhalation Daily 3 each 1 06/11/2024 09/09/2024 Active Jhvsktqcolf-Vzllwbdzt-Dzbtph er (3 sources) Start: 01-04-2025 Joyyzjbwmxv-Qnhqkdona-Ybyscc er (Trelegy Ellipta) 200-62.5-25 mcg blister with device Active INHALATION Twice daily January 04, 2025 9:12am Start: 12-10-2024 End: 01-04-2025 Ulfmdshnynp-Fomshodmu-Kkzizu er (Trelegy Ellipta) 200-62.5-25 mcg blister with device Discontinued INHALATION December 10, 2024 12:00am January 04, 2025 9:14am Start: 12-10-2024 Fluticasone-Um eclidin-Vilanter (Trelegy Ellipta) 200-62.5-25 mcg blister with device Active INHALATION December 10, 2024 12:00am furosemide 20 mg oral tablet (3 sources) Loop Diuretic Start: 06-26-2025 End: 07-26-2025 take 1 tablet by mouth once daily furosemide (Lasix) 20 MG tablet Indications: Edema of both lower legs Take 1 tablet (20 mg) by mouth Daily 30 tablet 1 06/26/2025 07/26/2025 Active hydroCHLOROthiazide 12.5 mg / losartan potassium 50 mg oral tablet (13 sources) Thiazide Diuretic, Angiotensin 2 Receptor Alysha Start: 01-26-2024 End: 01-25-2025 take 1 tablet by mouth once daily losartan-hydroCH LOROthiazide (Hyzaar) 50-12.5 MG tablet Indications: Primary hypertension (CMS/HCC) Take 1 tablet by mouth Daily 30 tablet 11 01/26/2024 09/20/2024 Discontinued (Dose adjustment) Lactate (4 sources) ammonium lactate 12-12 % kit Apply topically. Active lisinopril 10 mg oral tablet (4 sources) Angiotensin Converting Enzyme Inhibitor take 1 tablet by mouth twice daily lisinopril (PRINIVIL,ZESTRI L) 10 mg tablet Take 10 mg by mouth 2 (two) times a day. Active LORazepam 0.5 mg oral tablet (20 sources) Benzodiazepine Start: 01-07-2025 End: 01-17-2025 take 1 tablet by mouth three times daily as needed for anxiety LORazepam (Ativan) 0.5 MG tablet Indications: ELADIO (generalized anxiety disorder) Take 1 tablet (0.5 [...] needed for anxiety 02/06/2025 Discontinued (Therapy completed) losartan potassium 50 mg oral tablet (20 sources) Angiotensin 2 Receptor Alysha Start: 09-20-2024 End: 11-07-2025 take 1 tablet by mouth once daily losartan (Cozaar) 50 MG tablet Indications: Primary hypertension Take 1 tablet (50 mg) by mouth Daily 100 tablet 06/05/2025 09/13/2025 Active meloxicam 7.5 mg oral tablet (20 [...] oral tablet (20 sources) Biguanide Start: 01-22-2025 End: 09-13-2025 take 1 tablet by mouth once daily metFORMIN (Glucophage) 500 MG tablet Indications: Type 2 diabetes mellitus without complications (HCC) Take 1 tablet (500 mg) by mouth Daily 100 tablet 06/05/2025 09/13/2025 Active Start: 04-30-2024 End: 01-04-2025 take 1 [...] capsule (20 sources) Proton Pump Inhibitor Start: End: take 1 capsule by mouth once daily omeprazole (PriLOSEC) [address] capsule Indications: Gastro-esophageal reflux disease without esophagitis Take 1 capsule (20 mg) by mouth Daily 100 capsule 06/05/2025 09/13/2025 Active ondansetron 4 mg oral tablet (1 source) Serotonin-3 Receptor Antagonist Start: take 1 tablet by mouth every six hours as needed Ondansetron Hcl 4 mg tablet Active 4 MG PO Every 6 hours as needed January 04, 2025 12:00am PEG 3350 (Glycolax, Miralax) 4 gram packet (2 sources) PEG 3350 (Glycol ax, Miralax) 4 gram packet 17 g in the morning. Active polyethylene glycol 3350 33828 mg powder for oral solution (4 sources) Osmotic Laxative polyethylene gl ycol (GLYCOLAX) 17 gram packet Take 17 g by mouth daily. Active sertraline 100 mg oral tablet (20 sources) Serotonin Reuptake Inhibitor Start: End: take 1 tablet by mouth once daily sertraline (Zoloft) 100 MG tablet Indications: Depression, unspecified , Generalized anxiety disorder Take 1 tablet (100 mg) by mouth Daily 100 tablet 06/26/2025 10/04/2025 Active Start: 04-30-2024 End: 09-13-2025 take 1 tablet by mouth once daily sertraline (Zoloft) 50 MG tablet Indications: Depression, unspecified Take 1 tablet (50 mg) by mouth Daily 100 tablet 06/05/2025 06/26/2025 Discontinued (Reorder) spironolactone 25 mg oral tablet (4 sources) Aldosterone Antagonist take 1 tablet by mouth once daily spironolactone (ALDACTONE) 25 mg tablet Take 1 tablet by mouth daily. Active Completed/Discontinued Medications Medication Drug Class(es) Dates Sig (Normalized) Sig (Original) oseltamivir 30 mg oral capsule (2 sources) Neuraminidase Inhibitor Start: 12-14-2024 End: 01-04-2025 take 1 capsule by mouth twice daily Oseltamivir 30 mg Capsule Discontinued 30 MG PO Twice daily 4 December 14, 2024 12:00am January 04, 2025 9:14am predniSONE 20 mg oral tablet (2 sources) Start: 12-14-2024 End: 01-04-2025 take 2 tablets by mouth once daily Prednisone 20 mg Tablet Discontinued 40 MG PO Daily 4 December 14, 2024 12:00am January 04, 2025 9:14am Problems Active Problems Problem Classification Problem Date Documented Date Episodic/Chronic Anxiety disorders (20 sources) Anxiety; Translations: [Anxiety disorder, unspecified] Onset: 12-24-2024 12-24-2024 Chronic Aortic; peripheral; and visceral artery aneurysms (4 sources) Aneurysm of other specified arteries; Translations: [ANEURYSM OTHER SPECIFIED ARTERIES] Onset: 04-08-2022 Chronic Asthma (20 sources) Asthma-chronic obstructive pulmonary disease overlap syndrome; Translations: [Asthma with COPD (chronic obstructive pulmonary disease) ([facility])] Onset: 11-21-2023 08-27-2024 Chronic Chronic obstructive pulmonary [...] hyperlipidemia] Onset: 11-21-2023 11-21-2023 Chronic Esophageal disorders (2 sources) Gastroesophageal reflux disease without esophagitis; Translations: [Gastro-esophageal [...] D deficiency, unspecified] Onset: 06-21-2024 06-21-2024 Chronic Nutritional deficiencies (7 sources) Iron deficiency; Translations: [Iron deficiency] Onset: 06-13-2025 06-13-2025 Episodic Osteoarthritis (10 sources) Osteoarthritis; Translations: [Unspecified osteoarthritis, unspecified site] Onset: 04-01-2025 04-01-2025 Chronic Other and unspecified benign neoplasm (4 [...] pressure; Translations: [Hypotension, unspecified] 12-10-2024 Episodic Other connective tissue disease (2 sources) [...] [Tobacco use] 12-12-2024 Episodic Residual codes; unclassified (5 sources) Bilateral lower leg edema; Translations: [Localized edema] Onset: 06-26-2025 06-26-2025 Episodic Skin and subcutaneous tissue infections (5 sources) Cellulitis of left lower limb; Translations: [Cellulitis of left lower limb] Onset: 06-26-2025 06-26-2025 Episodic Substance-related disorders (20 sources) Smoker; Translations: [Nicotine dependence, unspecified, uncomplicated] Onset: 11-21-2023 Resolved: 01-23-2025 11-21-2023 Chronic Thyroid disorders (12 sources) Acquired hypothyroidism; Translations: [Hypothyroidism, unspecified] Onset: 03-25-2025 03-25-2025 Chronic Past or Other Problems Problem Classification Problem Date Documented Da te Episodic/Chronic Administrative/social admission (5 sources) Other reduced mobility; Translations: [Impaired mobility and activities of daily living] Onset: 12-09-2024 12-13-2024 Episodic Aspiration pneumonitis; food/vomitus (11 sources) Aspiration pneumonia; Translations: [Pneumonitis due to inhalation of food and vomit] Onset: 12-09-2024 12-10-2024 Episodic Gastrointestinal hemorrhage (4 sources) Rectal hemorrhage; Translations: [Hemorrhage of anus and rectum] Onset: 11-29-2019 11-29-2019 Episodic Influenza (20 sources) Influenza due to Influenza A virus; Translations: [Influenza due to other identified influenza virus with other respiratory manifestations] Onset: 12-09-2024 Resolved: 02-06-2025 12-10-2024 Episodic Mood disorders (20 sources) Mood disorders; Translations: [Depression, unspecified] Onset: 12-09-2024 03-08-2024 Open wounds of head; neck; and trunk (20 sources) Scalp laceration; Translations: [Laceration without foreign body of scalp, sequela] Onset: 01-23-2025 01-23-2025 Episodic Other and unspecified benign neoplasm (20 sources) Acoustic neuroma; Translations: [Benign neoplasm of cranial nerves] Onset: 03-14-2024 Resolved: 02-06-2025 02-23-2024 Chronic Other and unspecified benign neoplasm (20 sources) Other benign neoplasm of skin of right ear and external auricular canal; Translations: [Benign neoplasm of ear and external auditory canal] Onset: 06-21-2024 06-21-2024 Episodic Other circulatory disease (3 sources) Hypotension, unspecified; Translations: [Hypotension, unspecified] Onset: 12-09-2024 12-14-2024 Episodic Other connective tissue disease (20 sources) Recurrent falls ; Translations: [Repeated falls] Onset: 02-23-2024 02-23-2024 Episodic Other gastrointestinal disorders (20 sources) Occult blood in stools; Translations: [Other fecal abnormalities] Onset: 11-29-2019 01-26-2024 Episodic Residual codes; unclassified (3 sources) Tobacco use; Translations: [Tobacco use disorder] Onset: 12-09-2024 12-14-2024 Episodic Residual codes; unclassified (1 source) Other specified health status; Translations: [Other specified health status] Onset: 12-09-2024 Episodic Respiratory failure; insufficiency; arrest (adult) (20 sources) Acute respiratory failure; Translations: [Acute respiratory failure with hypoxia] Onset: 12-09-2024 12-10-2024 Episodic Unclassified (4 sources) Onset: 11-29-2019 11-29-2019 Results Test Name Value Interpretation Reference Range Facility ALL CBC WITH AUTO DIFFon BASOPHILS ABSOLUTE AUTO 0.1 [facility] Basophils/100 WBC (Bld) 0.9 % 0.2 - 2.0 % [facility] Eosinophils/100 WBC (Bld) 1.3 % 0.9 - 7.0 % [facility] Erythrocyte distribution width (RBC) [Ratio] 15.4 % High 11.0 - 15.0 % [facility] Hematocrit (Bld) [Volume fraction] 39.8 % 36.0 - 48.0 % [facility] Hemoglobin (Bld) [Mass/Vol] 12 g/dL 12.0 - 16.0 g/dL [facility] IMMATURE GRANULOCYTES ABS AUTO 0.02 [facility] Immature granulocytes/100 WBC (Bld) 0.3 % 0.0 - 0.5 % [facility] Interpretation and review of laboratory results Abnormal [facility] LYMPHOCYTES ABSOLUTE AUTO 0.8 Low [facility] Lymphocytes/100 WBC (Bld) 11.3 % Low 20.5 - 60.0 % [facility] MCH (RBC) [Entitic mass] 27.1 pg 26. 7 - 34.0 pg [facility] MCHC (RBC) [Mass/Vol] 30.2 g/dL 29.9 - 35.2 g/dL [facility] MCV (RBC) [Entitic vol] 89.8 fL 81.0 - 99.0 fL [facility] Monocytes/100 WBC (Bld) 7 % 1.7 - 12.0 % [facility] NEUTROPHILS ABSOLUTE AUTO 5.5 [facility] Neutrophils/100 WBC (Bld) 79.2 % High 43.0 - 75.0 % [facility] Platelet mean volume (Bld) [Entitic vol] 8.9 fL Low 9.5 - 13.5 fL [facility] TBH EO # 0.1 [facility] PLT 294 [facility] RBC 4.43 [facility] WBC 7 [facility] ALL THYROID STIM HORMONEon 0 03-25-2025 TSH Qn 2.663 m[IU]/L [facility] ALL THYROXINE (T4) FREEon Free T4 [Mass/Vol] 0.93 ng/dL 0.76 - 1. 46 ng/dL [facility] No Panel Informationon 03-25 [facility] NM ORLY PERF SPECT REST STRon 02-21-2025 [place] [address] Nuclear Medicine Report Signed Patient: JULIAN MONTAÑO MR#: [id number] : 1955 Acct:[id number] Age/Sex: 69 / F ADM Date: 02/20/25 Loc: [place] Attending Dr: Krissy Cortez M.D. Ordering Physician: Krissy Cortez M.D. Date of Service: 02/20/25 Procedure(s): NM orly perf SPECT rest str Accession Number(s): [id number] cc: La Pack PIPELINE GANG SUPERVISOR; Krissy Cortez M.D. Patient Name: JULIAN MONTAÑO MR#: [id number] : 1955 Exam Date: 02/20/2025 Ordering Doctor: KRISSY CORTEZ RADIOLOGY REPORT PROCEDURE: NM ORLY PERF SPECT REST STR COMPARISON: None. INDICATIONS: ABNORMAL EKG, SHORTNESS OF BREATH TECHNIQUE: Exam Description: Stress/Rest two day protocol gated SPECT Rest Imagin.3 mCi Tc-99m Cardiolite IV on 02/20/2025 Stress Imaging 25.0 mCi Tc-99m Cardiolite IV on 02/21/2025 Exercise Protocol: 0.4 mg Lexiscan given IV Heart Rate (bpm): Rest: 92 Max: 108 PMHR: 72 Blood Pressure: Rest: 124/80 Max: 132/76 Symptoms: Rest and peak stress ECG findings were pending, and the exercise portion of the study was pending per attending physician [facility]. For more details, please see separate cardiac stress test report. FINDINGS: QUALITY OF STUDY: PERFUSION DEFECT: Good LOCATION: Apical SIZE: Small SEVERITY: Mild TYPE: Fixed WALL MOTION: Normal LV SIZE: 45 mL. TID / TCD: 0.9 LVEF: Calculated EF 52%. SUMMARY: Myocardial perfusion imaging study is ABNORMAL CONCLUSION: 1. Myocardial perfusion is abnormal 2. There is a fixed apical perfusion defect likely related to physiological apical thinning although an infarct cannot be ruled out 3. Global left ventricular systolic function is lower normal limits 4. No evidence of transient ischemic dilatation Dictated by: Katarzyna Vallecillo M.D. on 02/21/2025 at 14:27 Approved by: Katarzyna Vallecillo M.D. on 02/21/2025 at 14:31 Dictated By: Katarzyna Vallecillo M.D. Signed By: 02/21/25 1432 DD/ 1431 TD/TT: Inspector Brake Lining: [facility] Radiology, Radiologist, MD - 02/21/2025 [place] [address] Nuclear Medicine Report Signed Patient: JULIAN MONTAÑO MR#: [id number] : 1955 Acct:[id number] Age/Sex: 69 / F ADM Date: 02/20/25 Loc: [facility] Attending Dr: Krissy Cortez M.D. Ordering Physician: Krissy Cortez M.D. Date of Service: 02/20/25 Procedure(s): NM orly perf SPECT rest str Accession Number(s): [id number] cc: La Pack NP; Krissy Cortez M.D. Patient Name: JULIAN MONTAÑO MR#: [id number] : 1955 Exam Date: 02/20/2025 Ordering Doctor: KRISYS CORTEZ RADIOLOGY REPORT PROCEDURE: NM ORLY PERF SPECT REST STR COMPARISON: None. INDICATIONS: ABNORMAL EKG, SHORTNESS OF BREATH TECHNIQUE: Exam Description: Stress/Rest two day protocol gated SPECT Rest Imagin.3 mCi Tc-99m Cardiolite IV on 02/20/2025 Stress Imaging 25.0 mCi Tc-99m Cardiolite IV on 02/21/2025 Exercise Protocol: 0.4 mg Lexiscan given IV Heart Rate (bpm): Rest: 92 Max: 108 PMHR: 72 Blood Pressure: Rest: 124/80 Max: 132/76 Symptoms: Rest and peak stress ECG findings were pending, and the exercise portion of the study was pending per attending physician [facility]. For more details, please see separate cardiac stress test report. FINDINGS: QUALITY OF STUDY: PERFUSION DEFECT: Good LOCATION: Apical SIZE: Small SEVERITY: Mild TYPE: Fixed WALL MOTION: Normal LV SIZE: 45 mL. TID / TCD: 0.9 LVEF: Calculated EF 52%. SUMMARY: Myocardial perfusion imaging study is ABNORMAL CONCLUSION: 1. Myocardial perfusion is abnormal 2. There is a fixed apical perfusion defect likely related to physiological apical thinning although an infarct cannot be ruled out 3. Global left ventricular systolic function is lower normal limits 4. No evidence of transient ischemic dilatation Dictated by: Katarzyna Vallecillo M.D. on 02/21/2025 at 14:27 Approved by: Katarzyna Vallecillo M.D. on 02/21/2025 at 14:31 Dictated By: Katarzyna Vallecillo M.D. Signed By: 02/21/25 1432 DD/ 1431 TD/TT: Inspector Brake Lining: [facility] Radiology Study observation (narrative) [facility] NM ORLY PERF SPECT REST STROr dered By: Radiologist Radiology on 02-21-2025 [facility] Work Phone: ALL CBC WITH AUTO DIFFon BASOPHILS ABSOLUTE AUTO 0.1 N [facility] Basophils/100 WBC (Bld) 0.6 % 0.2 - 2.0 % [facility] Eosinophils/100 WBC (Bld) 1.5 % 0.9 - 7.0 % [facility] Erythrocyte distribution width (RBC) [Ratio] 15.9 % High 11.0 - 15.0 % [facility] Hematocrit (Bld) [Volume fraction] 36.1 % 36.0 - 48.0 % [facility] Hemoglobin (Bld) [Mass/Vol] 11.6 g/dL Low 12.0 - 16.0 g/dL [facility] IMMATURE GRANULOCYTES ABS AUTO 0.04 High [facility] Immature granulocytes/100 WBC (Bld) 0.4 % 0.0 - 0.5 % [facility] Interpretation and review of laboratory results Abnormal [facility] LYMPHOCYTES ABSOLUTE AUTO 1.6 [facility] Lymphocytes/100 WBC (Bld) 15.8 % Low 20.5 - 60.0 % [facility] MCH (RBC) [Entitic mass] 28.7 pg 26. 7 - 34.0 [facility]CHC (RBC) [Mass/Vol] 32.1 g/dL 29.9 - 35.2 g/dL [facility] MCV (RBC) [Entitic vol] 89.4 fL 81.0 - 99.0 fL [facility] MONOCYTES ABSOLUTE AUTO 1 High N [facility] Monocytes/100 WBC (Bld) 9.6 % 1.7 - 12.0 % [facility] NEUTROPHILS ABSOLUTE AUTO 7.4 High [facility] Neutrophils/100 WBC (Bld) 72.1 % 43.0 - 75.0 % [facility] Platelet mean volume (Bld) [Entitic vol] 9.1 fL Low 9.5 - 13.5 fL [facility] TBH EO # 0.2 [facility] PLT 298 [facility] RBC 4.04 Low [facility] TBH WBC 10.2 [facility]ISYNC [facility] MM TOMOSYNTHESIS SCREENING B Ion 02-18-[address] [address] Mammography Report Signed Patient: JULIAN MONTAÑO MR#: [id number] : 1955 Acct:[id number] Age/Sex: 69 / F ADM Date: 02/18/25 Loc: MAMMO Attending Dr: La Pack NP Ordering Physician: La Pack NP Results: Date of Service: 02/18/25 Follow Up: Procedure(s): MM tomosynthesis screening BI Accession Number(s): [id number] cc: La Pack NP Patient Name: JULIAN MONTAÑO MR#: [id number] : 1955 Exam Date: 02/18/2025 Ordering Doctor: [...] uterine cancer at age 53. LOCATION: The [facility] BREAST COMPOSITION: The breasts are almost [...] Signed By: 02/18/25 1554 DD/ 1553 TD/TT: Inspector Brake Lining: [facility] Radiology, Radiologist, MD - 02/18/2025 [place] [address] Mammography Report Signed Patient: JULIAN MONTAÑO MR#: [id number] : 1955 Acct:[id number] Age/Sex: 69 / F ADM Date: 02/18/25 Loc: MAMMO Attending Dr: La Pack NP Ordering Physician: La Pack NP Results: Date of Service: 02/18/25 Follow Up: Procedure(s): MM tomosynthesis screening BI Accession Number(s): [id number] cc: La Pack NP Patient Name: JULIAN MONTAÑO MR#: [id number] : 1955 Exam Date: 02/18/2025 Ordering Doctor: [...] uterine cancer at age 53. LOCATION: The [facility] BREAST COMPOSITION: The breasts are almost [...] Signed By: 02/18/25 1554 DD/ 1553 TD/TT: Inspector Brake Lining: [facility] Radiology Study observation (narrative) [facility] MM TOMOSYNTHESIS SCREENING B IOrdered By: Radiologist Radiology on 02-18-2025 [facility] Work Phone: Alanine aminotransferase [En zymatic activity/volume] in Serum or PlasmaOrdered By: Daniel Garza on 12-14-2024 ALT [Catalytic activity/Vol] Alanine aminotransferase [Enzymatic activity/volume] in Serum or Plasma High 7-52 [facility] Albumin [Mass/volume] in Ser um or Plasma by Bromocresol green (BCG) dye binding methoOrdered By: Daniel Garza on 12-14-2024 Albumin BCG dye [Mass/Vol] Albumin [Mass/volume] in Serum or Plasma by Bromocresol green (BCG) dye binding metho 3.5-5.7 [facility] Alkaline phosphatase [Enzyma tic activity/volume] in Serum or PlasmaOrdered By: Daniel Garza on 12-14-2024 ALP [Catalytic activity/Vol] Alkaline phosphatase [Enzymatic activity/volume] in Serum or Plasma 34-104 [facility] Aspartate aminotransferase [ Enzymatic activity/volume] in Serum or PlasmaOrdered By: Daniel Garza on 12-14-2024 AST [Catalytic activity/Vol] Aspartate aminotransferase [Enzymatic activity/volume] in Serum or Plasma 13-39 [facility] Basophils Auto (Bld) [#/Vol] Ordered By: Daniel Garza on 12-14-2024 Basophils (Bld) [#/Vol] Automated basoph il count 0.0-0.2 [facility] Basophils/100 WBC Auto (Bld) Ordered By: Daniel Garza on 12-14-2024 Basophils/100 WBC (Bld) Automated basophil % . [facility] Bilirubin.total [Mass/volume ] in Serum or PlasmaOrdered By: Daniel Garza on 12-14-2024 Bilirubin [Mass/Vol] Bilirubin.total [Mass/volume] in Serum or Plasma 0.3-1.0 [facility] Calcium [Mass/volume] in Ser um or PlasmaOrdered By: Daniel Garza on 12-14-2024 Calcium [Mass/Vol] Calcium [Mass/volume ] in Serum or Plasma 8.6-10.3 [facility] Carbon dioxide, total [Moles /volume] in Serum or PlasmaOrdered By: Daniel Garza on 12-14-2024 CO2 [Moles/Vol] Carbon dioxide, tota l [Moles/volume] in Serum or Plasma 21.0-31.0 [facility] Chloride [Moles/volume] in S idris or PlasmaOrdered By: Daniel Garza on 12-14-2024 Chloride [Moles/Vol] Chloride [Moles/volume] in Serum or Plasma Low 98-107 [facility] Complete Blood Count Auto Di ffon 12-14-2024 Basophils (Bld) [#/Vol] 0.0 10*3/uL Normal 0.0-0.2 [facility] Comment on above: Result Comment: PERF ORMED BY: [facility] [address] [place] [address] PATHOLOGIST [employer] SPECIALIST MANDY ACUÑA M.D. Performed By: #### C MP, CBC ####[address] Basophils/100 WBC (Bld) 0.2 % Normal . T he [facility] Comment on above: Performed By: #### C MP, CBC ####[address] Eosinophils (Bld) [#/Vol] 0.0 10*3/uL Normal 0.0-0.45 [facility] Comment on above: Performed By: #### C MP, CBC ####[address] Eosinophils/100 WBC (Bld) 0.0 % Normal . The [facility] Comment on above: Performed By: #### C MP, CBC ####[address] Erythrocyte distribution width (RBC) [Ratio] 15.3 % Normal 11.9-15.3 [facility] Comment on above: Performed By: #### C MP, CBC ####[address] Hematocrit (Bld) [Volume fraction] 40.4 % Normal 34.0-46.4 [facility] Comment on above: Performed By: #### C MP, CBC ####[place] [address] Hemoglobin (Bld) [Mass/Vol] 13.4 g/dL Normal 11.8-15.4 [facility] Comment on above: Performed By: #### C MP, CBC ####[address] Lymphocytes (Bld) [#/Vol] 0.6 10*3/uL Low 1.00-4.8 [facility] Comment on above: Performed By: #### C MP, CBC ####[address] Lymphocytes/100 WBC (Bld) 7.0 % Normal . The [facility] Comment on above: Performed By: #### C MP, CBC ####[address] MCH (RBC) [Entitic mass] 28.5 pg Normal 24.7-34.3 [facility] Comment on above: Performed By: #### C MP, CBC ####[address] MCV (RBC) [Entitic vol] 85.6 fL Normal 80-100 T [facility] Comment on above: Performed By: #### C MP, CBC ####[address] Mean Corpuscular HGB Conc 33.3 g/dL Normal 32.0-35.0 [facility] Comment on above: Performed By: #### C MP, CBC ####[address] Monocytes (Bld) [#/Vol] 0.7 10*3/uL Normal 0.0-0.8 [facility] Comment on above: Performed By: #### C MP, CBC ####[address] Monocytes/100 WBC (Bld) 8.2 % Normal . T [facility] Comment on above: Performed By: #### C MP, CBC ####[address] Neutrophils (Bld) [#/Vol] 7.2 10*3/uL Normal 1.8-7.7 [facility] Comment on above: Performed By: #### C MP, CBC ####[address] Neutrophils/100 WBC (Bld) 84.6 % Normal . The [facility] Comment on above: Performed By: #### C MP, CBC ####[address] NRBC% 0.1 /100{WBC} Normal 0-0.5 [facility] Comment on above: Performed By: #### C MP, CBC ####[address] Platelet mean volume (Bld) [Entitic vol] 7.4 fL Normal 6.3-10.7 [facility] Comment on above: Performed By: #### C MP, CBC ####[address] Platelets (Bld) [#/Vol] 276 10*3/uL Normal 150-450 [facility] Comment on above: Performed By: #### C MP, CBC ####[address] RBC (Bld) [#/Vol] 4.72 10*6/uL Normal 3.60-5.00 [facility] Comment on above: Performed By: #### C MP, CBC ####[address] WBC (Bld) [#/Vol] 8.6 10*3/uL Normal 3.8-11.6 [facility] Comment on above: Performed By: #### C MP, CBC ####[place] [id number] [facility] Comprehensive Metabolic Pane ana 12-14-2024 Albumin [Mass/Vol] 3.7 g/dL Normal 3.5-5.7 [facility] Comment on above: Performed By: #### C MP, CBC ####[address] [address] [facility] Albumin/Globulin [Mass ratio] 1.2 {ratio} Normal [facility] Comment on above: Performed By: #### C MP, CBC ####[address] [address] [facility] ALP [Catalytic activity/Vol] 84 U/L Normal 34-104 [facility] Comment on above: Performed By: #### C MP, CBC ####[place] [id number] [facility] ALT [Catalytic activity/Vol] 55 U/L High 7-52 [facility] Comment on above: Performed By: #### C MP, CBC ####[place] [id number] [facility] Anion gap [Moles/Vol] 12.7 mmol/L Normal 6.0-15.[address] [facility] Comment on above: Performed By: #### C MP, CBC ####[place] [id number] [facility] AST [Catalytic activity/Vol] 29 U/L Normal 13-39 [facility] Comment on above: Performed By: #### C MP, CBC ####[place] [id number] [facility] Bilirubin [Mass/Vol] 0.6 mg/dL Normal 0.3-1.0 [facility] Comment on above: Performed By: #### C MP, CBC ####[place] [id number] [facility] Calcium [Mass/Vol] 9.2 mg/dL Normal 8.6-10.3 [facility] Comment on above: Performed By: #### C MP, CBC ####[place] [id number] [facility] Chloride [Moles/Vol] 93 mmol/L Low 98-107 [facility] Comment on above: Performed By: #### C MP, CBC ####[place] [id number] [place] CO2 [Moles/Vol] 29.4 mmol/L Normal 21.0-31.0 [facility] Comment on above: Performed By: #### C MP, CBC ####[address] Creatinine [Mass/Vol] 0.81 mg/dL Normal 0.60-1.20 [facility] Comment on above: Performed By: #### C MP, CBC ####[address] Creatinine Clr Calc Pharmacy 66.51 Normal The [facility] Comment on above: Result Comment: PERF ORMED BY: [facility] [address] [facility] [place] [address] PATHOLOGIST [employer] SPECIALIST MANDY ACUÑA M.D. Performed By: #### C MP, CBC ####[address] GFR/1.73 sq M.predicted MDRD (S/P/Bld) [Vol rate/Area] mL/min/{1.73_m2} Normal The [facility] Comment on above: Performed By: #### C MP, CBC ####[address] Globulin (S) [Mass/Vol] 3.2 g/dL Normal T [facility] Comment on above: Performed By: #### C MP, CBC ####[address] Glucose [Mass/Vol] 145 mg/dL High 70-100 [facility] Comment on above: Result Comment: [place] Glucose Reference Range is dependent on time and content of last meal. Glucose of more than 200 mg/dL in a nonstressed, ambulatory subject supports the diagnosis of Diabetes Mellitus. ADA recommended reference range Performed By: #### C MP, CBC ####[address] Potassium [Moles/Vol] 4.1 mmol/L Normal 3.5-5.1 [facility] Comment on above: Performed By: #### C MP, CBC ####[facility] [place] [id number] [facility] Protein [Mass/Vol] 6.9 g/dL Normal 6.4-8.9 [facility] Comment on above: Performed By: #### C MP, CBC ####[place] [address] [place] [id number] [facility] Sodium [Moles/Vol] 131 mmol/L Low 136-145 [facility] Comment on above: Performed By: #### C MP, CBC ####[facility] [address] [place] [id number] [facility] Urea nitrogen [Mass/Vol] 24 mg/dL Normal 7-25 [facility] Comment on above: Performed By: #### C MP, CBC ####[facility] [place] [id number] [facility] Creatinine [Mass/volume] in Serum or PlasmaOrdered By: Daniel Garza on 12-14-2024 Creatinine [Mass/Vol] Creatinine [Mass/volume] in Serum or Plasma 0.60-1.20 [facility] Eosinophils Auto (Bld) [#/Vo l]Ordered By: Daniel Garza on 12-14-2024 Eosinophils (Bld) [#/Vol] Automated eosinophil count 0.0-0.45 [facility] Eosinophils/100 WBC Auto (Bl d)Ordered By: Daniel Garza on 12-14-2024 Eosinophils/100 WBC (Bld) Automated eosinophil % . [facility] Erythrocyte distribution wid th Auto (RBC) [Ratio]Ordered By: Daniel Garza on 12-14-2024 Erythrocyte distribution width (RBC) [Ratio] Erythrocyte distribution width [Ratio] by Automated count 11.9-15.3 [facility] Globulin Calc (S) [Mass/Vol] Ordered By: Daniel Garza on 12-14-2024 Globulin (S) [Mass/Vol] Serum globulin measurement by calculation (mass/volume) [facility] Glucose Glucometer (BldC) [M ass/Vol]Ordered By: Daniel Garza on 12-14-2024 Glucose [Mass/Vol] Capillary blood glucose measurement by glucometer (mass/volume) [facility] Comment on above: [place] Glucose Refer ence Range is dependent on time and content of last meal. Glucose of more than 200 mg/dL in a nonstressed, ambulatory subject supports the diagnosis of Diabetes Mellitus. Glucose Poct Glucometerson 0 12-14-2024 Glucose [Mass/Vol] 236 mg/dL Normal The [facility] Comment on above: Result Comment: [place] om Glucose Reference Range is dependent on time and content of last meal. Glucose of more than 200 mg/dL in a nonstressed, ambulatory subject supports the diagnosis of Diabetes Mellitus. PERFORMED BY: [facility] [address] [place] [address] PATHOLOGIST MARK[employer] SPECIALIST MANDY ACUÑA M.D. Performed By: #### A BG #### Point of Care testing , Glucose [Mass/Vol] 154 mg/dL Normal The [facility] Comment on above: Result Comment: [place] om Glucose Reference Range is dependent on time and content of last meal. Glucose of more than 200 mg/dL in a nonstressed, ambulatory subject supports the diagnosis of Diabetes Mellitus. PERFORMED BY: [facility] [address] [place] [address] PATHOLOGIST MARKET[employer] SPECIALIST MANDY ACUÑA M.D. Performed By: #### G LULS #### Point of Care testing , Glucose [Mass/Vol] 105 mg/dL Normal [facility] Comment on above: Result Comment: [place] om Glucose Reference Range is dependent on time and content of last meal. Glucose of more than 200 mg/dL in a nonstressed, ambulatory subject supports the diagnosis of Diabetes Mellitus. PERFORMED BY: [facility] [address] [place] [address] PATHOLOGIST MARKET[employer] SPECIALIST MANDY ACUÑA M.D. Performed By: #### A BG #### Point of Care testing , Glucose [Mass/volume] in Ser um or PlasmaOrdered By: Daniel Garza on 12-14-2024 Glucose [Mass/Vol] Glucose [Mass/volume ] in Serum or Plasma High 70-100 [facility] Comment on above: ADA recommended refe rence rangeRandom Glucose Reference Range is dependent on time and content of last meal. Glucose of more than 200 mg/dL in a nonstressed, ambulatory subject supports the diagnosis of Diabetes Mellitus. Hematocrit Auto (Bld) [Volum e fraction]Ordered By: Daniel Garza on 12-14-2024 Hematocrit (Bld) [Volume fraction] Hematocrit [Volume Fraction] of Blood by Automated count 34.0-46.4 [facility] Hemoglobin [Mass/volume] in BloodOrdered By: Daniel Garza on 12-14-2024 Hemoglobin (Bld) [Mass/Vol] Hemoglobin [Mass/volume] in Blood 11.8-15.4 [facility] Leukocytes [#/volume] correc brendan for nucleated erythrocytes in Blood by Automated counOrdered By: Daniel Garza on 12-14-2024 WBC corrected for nucl RBC Auto (Bld) [#/Vol] Leukocytes [#/volume] corrected for nucleated erythrocytes in Blood by Automated coun 3.8-11.6 [facility] Lymphocytes Auto (Bld) [#/Vo l]Ordered By: Daniel Garza on 12-14-2024 Lymphocytes (Bld) [#/Vol] Lymphocytes [#/volume] in Blood by Automated count Low 1.00-4.8 [facility] Lymphocytes/100 WBC Auto (Bl d)Ordered By: Daniel Garza on 12-14-2024 Lymphocytes/100 WBC (Bld) Lymphocytes/100 leukocytes in Blood by Automated count . [facility] MCH Auto (RBC) [Entitic mass ]Ordered By: Daniel Garza on 12-14-2024 MCH (RBC) [Entitic mass] MCH [Entitic ma ss] by Automated count 24.7-34.3 [facility] MCHC Auto (RBC) [Mass/Vol]Or dered By: Daniel Garza on 12-14-2024 MCHC (RBC) [Mass/Vol] MCHC [Mass/volume] by Automated count 32.0-35.0 [facility] MCV Auto (RBC) [Entitic vol] Ordered By: Daniel Garza on 12-14-2024 MCV (RBC) [Entitic vol] MCV [Entitic vol ume] by Automated count 80-100 [facility] Monocytes Auto (Bld) [#/Vol] Ordered By: Daniel Garza on 12-14-2024 Monocytes (Bld) [#/Vol] Automated blood monocyte count 0.0-0.8 [facility] Monocytes/100 WBC Auto (Bld) Ordered By: Daniel Garza on 12-14-2024 Monocytes/100 WBC (Bld) Automated monocyte % . [facility] Neutrophils Auto (Bld) [#/Vo l]Ordered By: Daniel Garza on 12-14-2024 Neutrophils (Bld) [#/Vol] Neutrophils [#/volume] in Blood by Automated count 1.8-7.7 [facility] Neutrophils/100 WBC Auto (Bl d)Ordered By: Daniel Garza on 12-14-2024 Neutrophils/100 WBC (Bld) Automated neutrophil % . [facility] No Panel InformationOrdered By: Daniel Garza on 12-14-2024 Estimated GFR (CKD-EPI) > 60.0 mL/Min [facility] Creatinine Clearance (Chem 66.51 [facility] Nucleated erythrocytes [Pres ence] in Blood by Automated countOrdered By: Daniel Garza on 12-14-2024 Nucleated RBC Auto Ql (Bld) Nucleated erythrocytes [Presence] in Blood by Automated count 0-0.5 [facility] Platelet mean volume Auto (B ld) [Entitic vol]Ordered By: Daniel Garza on 12-14-2024 Platelet mean volume (Bld) [Entitic vol] Platelet mean volume [Entitic volume] in Blood by Automated count 6.3-10.7 [facility] Platelets Auto (Bld) [#/Vol] Ordered By: Daniel Garza on 12-14-2024 Platelets (Bld) [#/Vol] Platelets [#/vol ume] in Blood by Automated count 150-450 [facility] Potassium [Moles/volume] in Serum or PlasmaOrdered By: Daniel Garza on 12-14-2024 Potassium [Moles/Vol] Potassium [Moles/volume] in Serum or Plasma 3.5-5.1 [facility] Protein [Mass/volume] in Ser um or PlasmaOrdered By: Daniel Garza on 12-14-2024 Protein [Mass/Vol] Protein [Mass/volume ] in Serum or Plasma 6.4-8.9 [facility] RBC Auto (Bld) [#/Vol]Ordere d By: Daniel Garza on 12-14-2024 RBC (Bld) [#/Vol] Erythrocytes [#/volume] in Blood by Automated count 3.60-5.00 [facility] Serum or plasma albumin/glob ulin mass ratioOrdered By: Daniel Garza on 12-14-2024 Albumin/Globulin [Mass ratio] Serum or plasma albumin/globulin mass ratio [facility] Serum or plasma anion gap de terminationOrdered By: Daniel Garza on 12-14-2024 Anion gap [Moles/Vol] Serum or plasma an ion gap determination 6.0-15.0 [facility] Sodium [Moles/volume] in Ser um or PlasmaOrdered By: Daniel Garza on 12-14-2024 Sodium [Moles/Vol] Sodium [Moles/volume ] in Serum or Plasma Low 136-145 [facility] Urea nitrogen [Mass/volume] in Serum or PlasmaOrdered By: Daniel Garza on 12-14-2024 Urea nitrogen [Mass/Vol] Urea nitrogen [Mass/volume] in Serum or Plasma 7-25 [facility] WBC Auto (Bld) [#/Vol]Ordere d By: Daniel Garza on 12-14-2024 WBC (Bld) [#/Vol] Leukocytes [#/volume ] in Blood by Automated count 3.8-11.6 [facility] Complete Blood Count Auto Di ffon 12-13-2024 Basophils (Bld) [#/Vol] 0.0 10*3/uL Normal 0.0-0.2 [facility] Comment on above: Result Comment: PERF ORMED BY: [facility] [address] [place] [address] PATHOLOGIST MARK[employer] SPECIALIST MANDY ACUÑA M.D. Performed By: #### C JOBY, CMP ####[facility] [id number] [place] [address] [facility] Basophils/100 WBC (Bld) 0.1 % Normal . T he [facility] Comment on above: Performed By: #### C BC, CMP ####[address] Eosinophils (Bld) [#/Vol] 0.0 10*3/uL Normal 0.0-0.45 [facility] Comment on above: Performed By: #### C BC, CMP ####[place] [id number] [facility] Eosinophils/100 WBC (Bld) 0.0 % Normal . [facility] Comment on above: Performed By: #### C BC, CMP ####[address] Erythrocyte distribution width (RBC) [Ratio] 15.4 % High 11.9-15.3 [facility] Comment on above: Performed By: #### C BC, CMP ####[address] Hematocrit (Bld) [Volume fraction] 40.5 % Normal 34.0-46.4 [facility] Comment on above: Performed By: #### C BC, CMP ####[address] Hemoglobin (Bld) [Mass/Vol] 13.4 g/dL Normal 11.8-15.4 [facility] Comment on above: Performed By: #### C BC, CMP ####[place] [id number] [facility] Lymphocytes (Bld) [#/Vol] 0.7 10*3/uL Low 1.00-4.8 [facility] Comment on above: Performed By: #### C BC, CMP ####[place] [id number] [facility] Lymphocytes/100 WBC (Bld) 6.4 % Normal . [facility] Comment on above: Performed By: #### C BC, CMP ####[address] MCH (RBC) [Entitic mass] 28.5 pg Normal 24.7-34.3 [facility] Comment on above: Performed By: #### C BC, CMP ####[place] [id number] [facility] MCV (RBC) [Entitic vol] 86.4 fL Normal 80-100 [facility] Comment on above: Performed By: #### C BC, CMP ####[address] Mean Corpuscular HGB Conc 33.0 g/dL Normal 32.0-35.0 [facility] Comment on above: Performed By: #### C BC, CMP ####[address] Monocytes (Bld) [#/Vol] 0.7 10*3/uL Normal 0.0-0.8 [facility] Comment on above: Performed By: #### C BC, CMP ####[address] Monocytes/100 WBC (Bld) 6.5 % Normal . [facility] Comment on above: Performed By: #### C BC, CMP ####[address] Neutrophils (Bld) [#/Vol] 9.3 10*3/uL High 1.8-7.7 [facility] Comment on above: Performed By: #### C BC, CMP ####[place] [id number] [facility] Neutrophils/100 WBC (Bld) 87.0 % Normal . [facility] Comment on above: Performed By: #### C BC, CMP ####[address] NRBC% 0.1 /100{WBC} Normal 0-0.5 [facility] Comment on above: Performed By: #### C BC, CMP ####[address] Platelet mean volume (Bld) [Entitic vol] 7.3 fL Normal 6.3-10.7 [facility] Comment on above: Performed By: #### C BC, CMP ####[address] [address] [facility] Platelets (Bld) [#/Vol] 302 10*3/uL Normal 150-450 [facility] Comment on above: Performed By: #### C BC, CMP ####[place] [id number] [facility] RBC (Bld) [#/Vol] 4.68 10*6/uL Normal 3.60-5.00 [facility] Comment on above: Performed By: #### C BC, CMP ####[address] [address] [facility] WBC (Bld) [#/Vol] 10.6 10*3/uL Normal 3.8-11.6 [facility] Comment on above: Performed By: #### C JOBY, CMP ####[address] [address] [facility] Comprehensive Metabolic Pane ana 12-13-2024 Albumin [Mass/Vol] 3.8 g/dL Normal 3.5-5.7 [facility] Comment on above: Performed By: #### C JOBY, CMP ####[place] [id number] [facility] Albumin/Globulin [Mass ratio] 1.2 {ratio} Normal [facility] Comment on above: Performed By: #### C JOBY, CMP ####[place] [id number] [facility] ALP [Catalytic activity/Vol] 84 U/L Normal 34-104 [facility] Comment on above: Performed By: #### C BC, CMP ####[address] [address] [facility] ALT [Catalytic activity/Vol] 65 U/L High 7-52 [facility] Comment on above: Performed By: #### C BC, CMP ####[place] [id number] [facility] Anion gap [Moles/Vol] 14.3 mmol/L Normal 6.0-15.0 [facility] Comment on above: Performed By: #### C BC, CMP ####[address] [address] [facility] AST [Catalytic activity/Vol] 38 U/L Normal 13-39 [facility] Comment on above: Performed By: #### C BC, CMP ####[place] [id number] [facility] Bilirubin [Mass/Vol] 0.5 mg/dL Normal 0.3-1.0 [facility] Comment on above: Performed By: #### C BC, CMP ####[place] [id number] [facility] Calcium [Mass/Vol] 8.9 mg/dL Normal 8.6-10.3 [facility] Comment on above: Performed By: #### C BC, CMP ####[place] [id number] [facility] Chloride [Moles/Vol] 95 mmol/L Low 98-107 [facility] Comment on above: Performed By: #### C BC, CMP ####[place] [id number] [facility] CO2 [Moles/Vol] 30.8 mmol/L Normal 21.0-31.0 [facility] Comment on above: Performed By: #### C BC, CMP ####[place] [id number] [facility] Creatinine [Mass/Vol] 0.99 mg/dL Normal 0.60-1.20 [facility] Comment on above: Performed By: #### C BC, CMP ####[place] [id number] [facility] Creatinine Clr Calc Pharmacy 54.42 Normal [facility] Comment on above: Result Comment: PERF ORMED BY: [facility] [address] [place] [id number] PATHOLOGIST [employer] SPECIALIST MANDY ACUÑA M.D. Performed By: #### C BC, CMP ####[place] [id number] [facility] GFR/1.73 sq M.predicted MDRD (S/P/Bld) [Vol rate/Area] mL/min/{1.73_m2} Normal [facility] Comment on above: Performed By: #### C BC, CMP ####[place] [id number] [facility] Globulin (S) [Mass/Vol] 3.1 g/dL Normal T he [facility] Comment on above: Performed By: #### C BC, CMP ####[place] [id number] [facility] Glucose [Mass/Vol] 97 mg/dL Normal 70-100 [facility] Comment on above: Result Comment: [facility] Glucose Reference Range is dependent on time and content of last meal. Glucose of more than 200 mg/dL in a nonstressed, ambulatory subject supports the diagnosis of Diabetes Mellitus. ADA recommended reference range Performed By: #### C JOBY, CMP ####[place] [id number] [facility] Potassium [Moles/Vol] 4.1 mmol/L Normal 3.5-5.1 [facility] Comment on above: Performed By: #### C JOBY, CMP ####[place] [id number] [facility] Protein [Mass/Vol] 6.9 g/dL Normal 6.4-8.9 [facility] Comment on above: Performed By: #### C JOBY, CMP ####[place] [id number] [facility] Sodium [Moles/Vol] 136 mmol/L Normal 136-145 [facility] Comment on above: Performed By: #### C BC, CMP ####[address] [address] [facility] Urea nitrogen [Mass/Vol] 22 mg/dL Normal 7-25 [facility] Comment on above: Performed By: #### C BC, CMP ####[address] [address] [facility] Glucose Poct Glucometerson 0 12-13-2024 Commemt1 Glu2: Cleaned Meter Normal [facility] Comment on above: Result Comment: PERF ORMED BY: [address] [place] [address] PATHOLOGIST [employer] SPECIALIST MANDY ACUÑA M.D. Performed By: #### G LULS ####Point of Care testing, Glucose [Mass/Vol] 277 mg/dL Normal [facility] Comment on above: Result Comment: [place] [facility] Glucose Reference Range is dependent on time and content of last meal. Glucose of more than 200 mg/dL in a nonstressed, ambulatory subject supports the diagnosis of Diabetes Mellitus. Performed By: #### G LULS ####Point of Care testing, Glucose [Mass/Vol] 141 mg/dL Normal [facility] Comment on above: Result Comment: [place] [facility] Glucose Reference Range is dependent on time and content of last meal. Glucose of more than 200 mg/dL in a nonstressed, ambulatory subject supports the diagnosis of Diabetes Mellitus. PERFORMED BY: [place] [address] PATHOLOGIST [employer] SPECIALIST MANDY ACUÑA M.D. Performed By: #### G LULS ####Point of Care testing, Glucose [Mass/Vol] 150 mg/dL Normal [facility] Comment on above: Result Comment: [place] [facility] Glucose Reference Range is dependent on time and content of last meal. Glucose of more than 200 mg/dL in a nonstressed, ambulatory subject supports the diagnosis of Diabetes Mellitus. PERFORMED BY: [place] [address] PATHOLOGIST MARK[employer] SPECIALIST MANDY ACUÑA M.D. Performed By: #### G LULS #### Point of Care testing , Glucose [Mass/Vol] 117 mg/dL Normal [facility] Comment on above: Result Comment: [place] [facility] Glucose Reference Range is dependent on time and content of last meal. Glucose of more than 200 mg/dL in a nonstressed, ambulatory subject supports the diagnosis of Diabetes Mellitus. PERFORMED BY: [place] [id number] PATHOLOGIST MARK[employer] SPECIALIST MANDY ACUÑA M.D. Performed By: #### G LULS ####Point of Care testing, No Panel InformationOrdered By: Daniel Garza on 12-13-2024 Bedside Glucose Comment Glu2: cleaned meter [facility] Complete Blood Count Auto Di ffon 12-12-2024 Basophils (Bld) [#/Vol] 0.0 10*3/uL Normal 0.0-0.2 [facility] Comment on above: Result Comment: PERF ORMED BY: [facility] [place] [address] PATHOLOGIST [employer] SPECIALIST MANDY ACUÑA M.D. Performed By: #### A BG #### Point of Care testing , Basophils/100 WBC (Bld) 0.0 % Normal . T [facility] Comment on above: Performed By: #### A BG #### Point of Care testing , Eosinophils (Bld) [#/Vol] 0.0 10*3/uL Normal 0.0-0.45 [facility] Comment on above: Performed By: #### A BG #### Point of Care testing , Eosinophils/100 WBC (Bld) 0.0 % Normal . [facility] Comment on above: Performed By: #### A BG #### Point of Care testing , Erythrocyte distribution width (RBC) [Ratio] 15.8 % High 11.9-15.3 [facility] Comment on above: Performed By: #### A BG #### Point of Care testing , Hematocrit (Bld) [Volume fraction] 34.5 % Normal 34.0-46.4 [facility] Comment on above: Performed By: #### A BG #### Point of Care testing , Hemoglobin (Bld) [Mass/Vol] 11.3 g/dL Low 11.8-15.4 [facility] Comment on above: Performed By: #### A BG #### Point of Care testing , Lymphocytes (Bld) [#/Vol] 0.3 10*3/uL Low 1.00-4.8 [facility] Comment on above: Performed By: #### A BG #### Point of Care testing , Lymphocytes/100 WBC (Bld) 2.2 % Normal . [facility] Comment on above: Performed By: #### A BG #### Point of Care testing , MCH (RBC) [Entitic mass] 28.0 pg Normal 24.7-34.3 [facility] Comment on above: Performed By: #### A BG #### Point of Care testing , MCV (RBC) [Entitic vol] 85.4 fL Normal 80-100 [facility] Comment on above: Performed By: #### A BG #### Point of Care testing , Mean Corpuscular HGB Conc 32.8 g/dL Normal 32.0-35.0 [facility] Comment on above: Performed By: #### A BG #### Point of Care testing , Monocytes (Bld) [#/Vol] 0.6 10*3/uL Normal 0.0-0.8 [facility] Comment on above: Performed By: #### A BG #### Point of Care testing , Monocytes/100 WBC (Bld) 4.8 % Normal . [facility] Comment on above: Performed By: #### A BG #### Point of Care testing , Neutrophils (Bld) [#/Vol] 10.8 10*3/uL High 1.8-7.7 [facility] Comment on above: Performed By: #### A BG #### Point of Care testing , Neutrophils/100 WBC (Bld) 93.0 % Normal . [facility] Comment on above: Performed By: #### A BG #### Point of Care testing , NRBC% 0.0 /100{WBC} Normal 0-0.5 [facility] Comment on above: Performed By: #### A BG #### Point of Care testing , Platelet mean volume (Bld) [Entitic vol] 7.4 fL Normal 6.3-10.7 [facility] Comment on above: Performed By: #### A BG #### Point of Care testing , Platelets (Bld) [#/Vol] 282 10*3/uL Normal 150-450 [facility] Comment on above: Performed By: #### A BG #### Point of Care testing , RBC (Bld) [#/Vol] 4.04 10*6/uL Normal 3.60-5.00 [facility] Comment on above: Performed By: #### A BG #### Point of Care testing , WBC (Bld) [#/Vol] 11.6 10*3/uL Normal 3.8-11.6 [facility] Comment on above: Performed By: #### A BG #### Point of Care testing , Comprehensive Metabolic Pane ana 12-12-2024 Albumin [Mass/Vol] 3.6 g/dL Normal 3.5-5.7 [facility] Comment on above: Performed By: #### P HOS, CMP ####[address] Albumin/Globulin [Mass ratio] 1.3 {ratio} Normal [facility] Comment on above: Performed By: #### P HOS, CMP ####[place] [id number] [facility] ALP [Catalytic activity/Vol] 72 U/L Normal 34-104 [facility] Comment on above: Performed By: #### P HOS, CMP ####[place] [id number] [facility] ALT [Catalytic activity/Vol] 67 U/L High 7-52 [facility] Comment on above: Performed By: #### P HOS, CMP ####[place] [id number] [facility] Anion gap [Moles/Vol] 12.5 mmol/L Normal 6.0-15.0 [facility] Comment on above: Performed By: #### P HOS, CMP ####[place] [id number] [facility] AST [Catalytic activity/Vol] 41 U/L High 13-39 [facility] Comment on above: Performed By: #### P HOS, CMP ####[place] [id number] [facility] Bilirubin [Mass/Vol] 0.4 mg/dL Normal 0.3-1.0 [facility] Comment on above: Performed By: #### P HOS, CMP ####[place] [id number] [facility] Calcium [Mass/Vol] 8.3 mg/dL Low 8.6-10.3 [facility] Comment on above: Performed By: #### P HOS, CMP ####[address] Chloride [Moles/Vol] 101 mmol/L Normal 98-107 [facility] Comment on above: Performed By: #### P HOS, CMP ####[address] CO2 [Moles/Vol] 29.2 mmol/L Normal 21.0-31.0 [facility] Comment on above: Performed By: #### P HOS, CMP ####[address] Creatinine [Mass/Vol] 0.65 mg/dL Normal 0.60-1.20 [facility] Comment on above: Performed By: #### P HOS, CMP ####[place] [address] [place] Creatinine Clr Calc Pharmacy 67.88 Normal [facility] Comment on above: Performed By: #### P HOS, CMP ####[place] [id number] [facility] GFR/1.73 sq M.predicted MDRD (S/P/Bld) [Vol rate/Area] mL/min/{1.73_m2} Normal [facility] Comment on above: Performed By: #### P HOS, CMP ####[place] [id number] [facility] Globulin (S) [Mass/Vol] 2.7 g/dL Normal T [facility] Comment on above: Performed By: #### P HOS, CMP ####[place] [id number] [facility] Glucose [Mass/Vol] 123 mg/dL High 70-100 [facility] Comment on above: Result Comment: [facility] Glucose Reference Range is dependent on time and content of last meal. Glucose of more than 200 mg/dL in a nonstressed, ambulatory subject supports the diagnosis of Diabetes Mellitus. ADA recommended reference range Performed By: #### P HOS, CMP ####[place] [address] [place] [address] [facility] Potassium [Moles/Vol] 3.7 mmol/L Normal 3.5-5.1 [facility] Comment on above: Performed By: #### P HOS, CMP ####[place] [address] [place] [address] [facility] Protein [Mass/Vol] 6.3 g/dL Low 6.4-8.9 [facility] Comment on above: Performed By: #### P HOS, CMP ####[address] [address] [facility] Sodium [Moles/Vol] 139 mmol/L Normal 136-145 [facility] Comment on above: Performed By: #### P HOS, CMP ####[address] [address] [facility] Urea nitrogen [Mass/Vol] 16 mg/dL Normal 7-25 [facility] Comment on above: Performed By: #### P HOS, CMP ####[address] [address] [facility] Glucose Poct Glucometerson 0 12-12-2024 Commemt1 Glu2: Cleaned Meter Normal [facility] Comment on above: Result Comment: PERF ORMED BY: [facility] [address] [place] [id number] PATHOLOGIST MARK[employer] SPECIALIST MANDY ACUÑA M.D. Performed By: #### G LULS #### Point of Care testing , Glucose [Mass/Vol] 114 mg/dL Normal [facility] Comment on above: Result Comment: [facility] Glucose Reference Range is dependent on time and content of last meal. Glucose of more than 200 mg/dL in a nonstressed, ambulatory subject supports the diagnosis of Diabetes Mellitus. Performed By: #### G LULS #### Point of Care testing , Glucose [Mass/Vol] 107 mg/dL Normal [facility] Comment on above: Result Comment: [facility] Glucose Reference Range is dependent on time and content of last meal. Glucose of more than 200 mg/dL in a nonstressed, ambulatory subject supports the diagnosis of Diabetes Mellitus. PERFORMED BY: [address] [place] [address] PATHOLOGIST MARK[employer] SPECIALIST MANDY ACUÑA M.D. Performed By: #### G LULS ####Point of Care testing, Glucose [Mass/Vol] 177 mg/dL Normal [facility] Comment on above: Result Comment: [facility] Glucose Reference Range is dependent on time and content of last meal. Glucose of more than 200 mg/dL in a nonstressed, ambulatory subject supports the diagnosis of Diabetes Mellitus. PERFORMED BY: [address] [place] [address] PATHOLOGIST MARK[employer] SPECIALIST MANDY ACUÑA M.D. Performed By: #### G LULS #### Point of Care testing , Glucose [Mass/Vol] 150 mg/dL Normal [facility] Comment on above: Result Comment: [facility] Glucose Reference Range is dependent on time and content of last meal. Glucose of more than 200 mg/dL in a nonstressed, ambulatory subject supports the diagnosis of Diabetes Mellitus. PERFORMED BY: [address] [place] [address] PATHOLOGIST MARKET[employer] SPECIALIST MANDY ACUÑA M.D. Performed By: #### G LULS #### Point of Care testing , Phosphate [Mass/volume] in S idris or PlasmaOrdered By: Daniel Garza on 12-12-2024 Phosphate [Mass/Vol] Phosphate [Mass/volume] in Serum or Plasma Low 2.5-4.5 [facility] Phosphoruson 12-12-2024 Phosphate [Mass/Vol] 2.0 mg/dL Low 2.5-4.5 [facility] Comment on above: Result Comment: PERF ORMED BY: [address] [place] [address] PATHOLOGIST [employer] SPECIALIST MANDY ACUÑA M.D. Performed By: #### P HOS, CMP ####[facility] [place] [address] [facility] Arterial Blood Gason 025 ABG Base Excess -3.0 mmol/L Normal -3.0-3.0 [facility] Comment on above: Performed By: #### A BG #### Point of Care testing , ABG Frac Inspired O2 55 % Normal [facility] Comment on above: Performed By: #### A BG #### Point of Care testing , ABG Oxygen Content 6.9 mmol/L Normal 6.6-9.7 [facility] Comment on above: Performed By: #### A BG #### Point of Care testing , ABG Oxygen Saturation 98.1 % Normal 95.0-100.0 [facility] Comment on above: Performed By: #### A BG #### Point of Care testing , ABG PCO2 40.3 mm[Hg] Normal 35.0-45.0 [facility] Comment on above: Performed By: #### A BG #### Point of Care testing , ABG PEEP 8 cmH20 Normal [facility] Comment on above: Performed By: #### A BG #### Point of Care testing , ABG PH 7.36 Normal 7.35-7.45 [facility] Comment on above: Performed By: #### A BG #### Point of Care testing , ABG PO2 126.0 mm[Hg] Off scale high 80.0-100.0 [facility] Comment on above: Performed By: #### A BG #### Point of Care testing , ABG TV 420 mL Normal [facility] Comment on above: Performed By: #### A BG #### Point of Care testing , Respiratory Critical Normal [facility] Comment on above: Result Comment: Crit ical Value called on: 12/11/2024 at 04:26 PERFORMED BY: [facility] [address] [place] [address] PATHOLOGIST MARK[employer] SPECIALIST MANDY ACUÑA M.D. Performed By: #### A BG #### Point of Care testing , Set Respiratory Rate 18 Normal [facility] Comment on above: Performed By: #### A BG #### Point of Care testing , VBG Draw Site Left Radial Normal [facility] Comment on above: Performed By: #### A BG #### Point of Care testing , Ventilator Mode AC Normal [facility] Comment on above: Performed By: #### A BG #### Point of Care testing , Arterial Blood GasOrdered By : Daniel Garza on 12-11-2024 CO2 [Moles/Vol] 23.4 mmol/L Normal 23.0-27.0 [facility] Comment on above: Performed By: #### A BG #### Point of Care testing , HCO3 (Bld) [Moles/Vol] 22.2 mmol/L Low 23.0-29.0 [facility] Comment on above: Performed By: #### A BG #### Point of Care testing , Complete Blood Count Auto Di ffon 12-11-2024 Basophils (Bld) [#/Vol] 0.1 10*3/uL Normal 0.0-0.2 [facility] Comment on above: Result Comment: PERF ORMED BY: [facility] [address] [place] [address] PATHOLOGIST [employer] SPECIALIST MANDY ACUÑA M.D. Performed By: #### G LULS #### Point of Care testing , Basophils/100 WBC (Bld) 0.4 % Normal . T abilio [facility] Comment on above: Performed By: #### G LULS #### Point of Care testing , Eosinophils (Bld) [#/Vol] 0.0 10*3/uL Normal 0.0-0.45 [facility] Comment on above: Performed By: #### G LULS #### Point of Care testing , Eosinophils/100 WBC (Bld) 0.0 % Normal . [facility] Comment on above: Performed By: #### G LULS #### Point of Care testing , Erythrocyte distribution width (RBC) [Ratio] 16.3 % High 11.9-15.3 [facility] Comment on above: Performed By: #### G LULS #### Point of Care testing , Hematocrit (Bld) [Volume fraction] 32.9 % Low 34.0-46.4 [facility] Comment on above: Performed By: #### G LULS #### Point of Care testing , Hemoglobin (Bld) [Mass/Vol] 10.8 g/dL Low 11.8-15.4 [facility] Comment on above: Performed By: #### G LULS #### Point of Care testing , Lymphocytes (Bld) [#/Vol] 0.3 10*3/uL Low 1.00-4.8 [facility] Comment on above: Performed By: #### G LULS #### Point of Care testing , Lymphocytes/100 WBC (Bld) 1.7 % Normal . [facility] Comment on above: Performed By: #### G LULS #### Point of Care testing , MCH (RBC) [Entitic mass] 28.9 pg Normal 24.7-34.3 [facility] Comment on above: Performed By: #### G LULS #### Point of Care testing , MCV (RBC) [Entitic vol] 87.9 fL Normal 80-100 T [facility] Comment on above: Performed By: #### G LULS #### Point of Care testing , Mean Corpuscular HGB Conc 32.9 g/dL Normal 32.0-35.0 [facility] Comment on above: Performed By: #### G LULS #### Point of Care testing , Monocytes (Bld) [#/Vol] 0.5 10*3/uL Normal 0.0-0.8 [facility] Comment on above: Performed By: #### G LULS #### Point of Care testing , Monocytes/100 WBC (Bld) 3.4 % Normal . [facility] Comment on above: Performed By: #### G LULS #### Point of Care testing , Neutrophils (Bld) [#/Vol] 14.5 10*3/uL High 1.8-7.7 [facility] Comment on above: Performed By: #### G LULS #### Point of Care testing , Neutrophils/100 WBC (Bld) 94.5 % Normal . [facility] Comment on above: Performed By: #### G LULS #### Point of Care testing , NRBC% 0.0 /100{WBC} Normal 0-0.5 [facility] Comment on above: Performed By: #### G LULS #### Point of Care testing , Platelet mean volume (Bld) [Entitic vol] 7.2 fL Normal 6.3-10.7 [facility] Comment on above: Performed By: #### G LULS #### Point of Care testing , Platelets (Bld) [#/Vol] 244 10*3/uL Normal 150-450 [facility] Comment on above: Performed By: #### G LULS #### Point of Care testing , RBC (Bld) [#/Vol] 3.74 10*6/uL Normal 3.60-5.00 [facility] Comment on above: Performed By: #### G LULS #### Point of Care testing , WBC (Bld) [#/Vol] 15.4 10*3/uL High 3.8-11.6 [facility] Comment on above: Performed By: #### G LULS #### Point of Care testing , Comprehensive Metabolic Pane ana 12-11-2024 Albumin [Mass/Vol] 3.4 g/dL Low 3.5-5.7 [facility] Comment on above: Performed By: #### G LULS #### Point of Care testing , Albumin/Globulin [Mass ratio] 1.6 {ratio} Normal [facility] Comment on above: Performed By: #### G LULS #### Point of Care testing , ALP [Catalytic activity/Vol] 69 U/L Normal 34-104 [facility] Comment on above: Performed By: #### G LULS #### Point of Care testing , ALT [Catalytic activity/Vol] 76 U/L High 7-52 [facility] Comment on above: Performed By: #### G LULS #### Point of Care testing , Anion gap [Moles/Vol] 11.6 mmol/L Normal 6.0-15.0 Th e [facility] Comment on above: Performed By: #### G JAYLS #### Point of Care testing , AST [Catalytic activity/Vol] 49 U/L High 13-39 [facility] Comment on above: Performed By: #### G JAYLS #### Point of Care testing , Bilirubin [Mass/Vol] 0.4 mg/dL Normal 0.3-1.0 [facility] Comment on above: Performed By: #### G JAYLS #### Point of Care testing , Calcium [Mass/Vol] 8.1 mg/dL Low 8.6-10.3 [facility] Comment on above: Performed By: #### G JAYLS #### Point of Care testing , Chloride [Moles/Vol] 105 mmol/L Normal 98-107 [facility] Comment on above: Performed By: #### G JAYLS #### Point of Care testing , CO2 [Moles/Vol] 23.7 mmol/L Normal 21.0-31.0 [facility] Comment on above: Performed By: #### G JAYLS #### Point of Care testing , Creatinine [Mass/Vol] 0.74 mg/dL Normal 0.60-1.20 [facility] Comment on above: Performed By: #### G JAYLS #### Point of Care testing , Creatinine Clr Calc Pharmacy 67.88 Normal [facility] Comment on above: Performed By: #### G JAYLS #### Point of Care testing , GFR/1.73 sq M.predicted MDRD (S/P/Bld) [Vol rate/Area] mL/min/{1.73_m2} Normal [facility] Comment on above: Performed By: #### G JAYLS #### Point of Care testing , Globulin (S) [Mass/Vol] 2.1 g/dL Normal T [facility] Comment on above: Performed By: #### G JAYLS #### Point of Care testing , Glucose [Mass/Vol] 134 mg/dL High 70-100 [facility] Comment on above: Result Comment: [place] Glucose Reference Range is dependent on time and content of last meal. Glucose of more than 200 mg/dL in a nonstressed, ambulatory subject supports the diagnosis of Diabetes Mellitus. ADA recommended reference range Performed By: #### G LULS #### Point of Care testing , Potassium [Moles/Vol] 4.3 mmol/L Normal 3.5-5.1 [facility] Comment on above: Performed By: #### G LULS #### Point of Care testing , Protein [Mass/Vol] 5.5 g/dL Low 6.4-8.9 [facility] Comment on above: Performed By: #### G LULS #### Point of Care testing , Sodium [Moles/Vol] 136 mmol/L Significant change down 136-145 [facility] Comment on above: Performed By: #### G LULS #### Point of Care testing , Urea nitrogen [Mass/Vol] 21 mg/dL Normal 7-25 [facility] Comment on above: Performed By: #### G LULS #### Point of Care testing , Glucose Poct Glucometerson 0 12-11-2024 Glucose [Mass/Vol] 132 mg/dL Normal [facility] Comment on above: Result Comment: [facility] Glucose Reference Range is dependent on time and content of last meal. Glucose of more than 200 mg/dL in a nonstressed, ambulatory subject supports the diagnosis of Diabetes Mellitus. PERFORMED BY: [facility] [address] [facility] [place] [address] PATHOLOGIST MARKETING PROGRAMS SPECIALIST MANDY ACUÑA M.D. Performed By: #### G LULS #### Point of Care testing , Glucose [Mass/Vol] 123 mg/dL Normal [facility] Comment on above: Result Comment: [facility] Glucose Reference Range is dependent on time and content of last meal. Glucose of more than 200 mg/dL in a nonstressed, ambulatory subject supports the diagnosis of Diabetes Mellitus. PERFORMED BY: [facility] [address] [place] [address] PATHOLOGIST MARKETING PROGRAMS SPECIALIST MANDY ACUÑA M.D. Performed By: #### A BG #### Point of Care testing , Magnesiumon 12-11-2024 Magnesium [Mass/Vol] 2.3 mg/dL Normal 1.9-2.7 [facility] Comment on above: Result Comment: PERF ORMED BY: [facility] [place] [address] PATHOLOGIST MARKETING PROGRAMS SPECIALIST MANDY ACUÑA M.D. Performed By: #### G LULS #### Point of Care testing , Magnesium [Mass/volume] in S idris or PlasmaOrdered By: Daniel Garza on 12-11-2024 Magnesium [Mass/Vol] Magnesium [Mass/volume] in Serum or Plasma 1.9-2.7 [facility] No Panel InformationOrdered By: Daniel Garza on 12-11-2024 Arterial Blood Base Excess -3.0 mmol/L -3.0-3.0 [facility] Arterial Blood Oxygen Content 6.9 mmol/L 6.6-9.7 [facility] Arterial Blood Oxygen Saturation 98.1 % 95.0-100.0 [facility] Arterial Blood Partial Pressure CO2 40.3 mm[Hg] 35.0-45.0 [facility] Arterial Blood Partial Pressure O2 126.0 mm[Hg] Critically high 80.0-100.0 [facility] Arterial Blood pH 7.36 7.35-7.45 [facility] Blood Gas Critical Value See comment [facility] Comment on above: Critical Value hope d on: 12/11/2024 at 04:26 Blood Gas PEEP 8 cmH2O [facility] Blood Gas Sample Site Left radial [facility] Blood Gas Set Respiration Rate 18 [facility] Blood Gas Tidal Volume 420 mL [facility] Blood Gas Ventilator Mode Ac [facility] FiO2 55 % [facility] Phosphoruson 12-11-2024 Phosphate [Mass/Vol] 2.6 mg/dL Normal 2.5-4.5 [facility] Comment on above: Performed By: #### G LULS #### Point of Care testing , Triglyceride [Mass/volume] i n Serum or PlasmaOrdered By: Soco Beasley on 12-11-2024 Triglyceride [Mass/Vol] Triglyceride [Mass/volume] in Serum or Plasma High 35-149 [facility] Comment on above: TRIG ATP III CLASSIF ICATIONTRIG less than 150 mg/dL NormalTRIG 150-199 mg/dL Borderline highTRIG 200-500 mg/dL High TRIG greater than 500 mg/dL Very highStandard traceable to the Center for Disease Conrtrol and Prevention (CDC) test method. Triglycerideson 12-11-2024 Triglyceride [Mass/Vol] 158 mg/dL High 35-149 T [facility] Comment on above: Result Comment: TRIG ATP III CLASSIFICATION TRIG less than 150 mg/dL Normal TRIG 150-199 mg/dL Borderline high TRIG 200-500 mg/dL High TRIG greater than 500 mg/dL Very high Standard traceable to the Center for Disease Conrtrol and Prevention (CDC) test method. PERFORMED BY: [place] [address] PATHOLOGIST MARKETING PROGRAMS SPECIALIST MANDY ACUÑA M.D. Performed By: #### T RIG #### [address] X-ray reportOrdered By: Roman Ugalde on 12-11-2024 Study report [facility] Main [place] [address] [place] [address] XRay Report Signed Patient: Julian Montaño MR#: [id number] : 1955 Acct:[id number] Age/Sex: 69 / F ADM Date: 5 Loc: Room: [address] [place] [address] Type: ADM IN Attending Dr: Daniel Garza [...] 8:33 AM Dictation Location: RADIO-PC-22 Transcribed By: ANDREW 12/11/2433 Dictated By: Ryan Ugalde Jr, DO 12/11/2432 Signed By: 12/11/24 0833 [facility] XR chest 1V portableon 12-11 XR chest 1V portable [facility] Main [place] [address] [place] [address] XRay Report Signed Patient: Julian Montaño MR#: [id number] 27 : 1955 Acct:[id number] Age/Sex: 69 / F ADM Date: 12/09/24 Loc: Room: [address] [place] [address] Type: ADM IN Attending Dr: Daniel Garza [...] 8:33 AM Dictation Location: RADIO-PC-22 Transcribed By: ANDREW 12/11/2433 Dictated By: Ryan Ugalde Jr, DO 12/11/2432 Signed By: 12/11/24 0833 Normal [facility] Amphetamine Screen Ql (U)Ord ered By: Soco Beasley on 12-10-2024 Amphetamines Ql (U) Amphetamines screen Negativ e [facility] Arterial Blood Gason 01-27-2 025 ABG Base Excess -2.9 mmol/L Normal -3.0-3.0 [facility] Comment on above: Performed By: #### A BG #### Point of Care testing , ABG Frac Inspired O2 50 % Normal [facility] Comment on above: Performed By: #### A BG #### Point of Care testing , ABG Oxygen Content 6.8 mmol/L Normal 6.6-9.7 [facility] Comment on above: Performed By: #### A BG #### Point of Care testing , ABG Oxygen Saturation 97.3 % Normal 95.0-100.0 [facility] Comment on above: Performed By: #### A BG #### Point of Care testing , ABG PCO2 42.7 mm[Hg] Normal 35.0-45.0 [facility] Comment on above: Performed By: #### A BG #### Point of Care testing , ABG PEEP 5 cmH20 Normal [facility] Comment on above: Performed By: #### A BG #### Point of Care testing , ABG PH 7.34 Low 7.35-7.45 [facility] Comment on above: Performed By: #### A BG #### Point of Care testing , ABG PO2 99.2 mm[Hg] Normal 80.0-100.0 [facility] Comment on above: Performed By: #### A BG #### Point of Care testing , ABG TV 450 mL Normal [facility] Comment on above: Performed By: #### A BG #### Point of Care testing , CO2 [Moles/Vol] 24.0 mmol/L Normal 23.0-27.0 [facility] Comment on above: Performed By: #### A BG #### Point of Care testing , HCO3 (Bld) [Moles/Vol] 22.7 mmol/L Low 23.0-29.0 T he [facility] Comment on above: Performed By: #### A BG #### Point of Care testing , Respiratory Critical Normal [facility] Comment on above: Result Comment: Crit ical Value called on: 12/10/2024 at 06:05 PERFORMED BY: [facility] [place] [address] PATHOLOGIST MARKETING PROGRAMS SPECIALIST MANDY ACUÑA M.D. Performed By: #### A BG #### Point of Care testing , Set Respiratory Rate 18 Normal [facility] Comment on above: Performed By: #### A BG #### Point of Care testing , VBG Draw Site Left Radial Normal [facility] Comment on above: Performed By: #### A BG #### Point of Care testing , Ventilator Mode AC Normal [facility] Comment on above: Performed By: #### A BG #### Point of Care testing , ABG Base Excess -4.9 mmol/L Low -3.0-3.0 [facility] Comment on above: Performed By: #### G LULS #### Point of Care testing , ABG Frac Inspired O2 60 % Normal [facility] Comment on above: Performed By: #### G LULS #### Point of Care testing , ABG Oxygen Content 6.8 mmol/L Normal 6.6-9.7 [facility] Comment on above: Performed By: #### G LULS #### Point of Care testing , ABG Oxygen Saturation 98.2 % Normal 95.0-100.0 [facility] Comment on above: Performed By: #### G LULS #### Point of Care testing , ABG PCO2 47.5 mm[Hg] High 35.0-45.0 [facility] Comment on above: Performed By: #### G LULS #### Point of Care testing , ABG PEEP 5 cmH20 Normal [facility] Comment on above: Performed By: #### G LULS #### Point of Care testing , ABG PH 7.28 Low 7.35-7.45 [facility] Comment on above: Performed By: #### G LULS #### Point of Care testing , ABG PO2 140.9 mm[Hg] Off scale high 80.0-100.0 [facility] Comment on above: Performed By: #### G LULS #### Point of Care testing , ABG TV 500 mL Normal [facility] Comment on above: Performed By: #### G LULS #### Point of Care testing , CO2 [Moles/Vol] 23.3 mmol/L Normal 23.0-27.0 [facility] Comment on above: Performed By: #### G LULS #### Point of Care testing , HCO3 (Bld) [Moles/Vol] 21.8 mmol/L Low 23.0-29.0 T [facility] Comment on above: Performed By: #### G LULS #### Point of Care testing , Respiratory Critical Normal [facility] Comment on above: Result Comment: Crit ical Value called on: 12/10/2024 at 00:12 PERFORMED BY: [facility] [address] [place] [address] PATHOLOGIST MARKETING PROGRAMS SPECIALIST MANDY ACUÑA M.D. Performed By: #### G LULS #### Point of Care testing , Set Respiratory Rate 18 Normal [facility] Comment on above: Performed By: #### G LULS #### Point of Care testing , VBG Draw Site Right Radial Normal [facility] Comment on above: Performed By: #### G LULS #### Point of Care testing , Ventilator Mode AC Normal [facility] Comment on above: Performed By: #### G LULS #### Point of Care testing , Barbiturates [Presence] in U rine by Screen methodOrdered By: Soco Beasley on 12-10-2024 Barbiturates Screen Ql (U) Barbiturates [Presence] in Urine by Screen method Negative [facility] Benzodiazepines Screen Ql (U )Ordered By: Soco Beasley on 12-10-2024 Benzodiazepines Ql (U) Benzodiazepines [Presence] in Urine by Screen method High Negative [facility] Benzoylecgonine [Presence] i n Urine by Screen methodOrdered By: Soco Beasley on 12-10-2024 Benzoylecgonine Screen Ql (U) Benzoylecgonine [Presence] in Urine by Screen method Negative [facility] Cannabinoids [Presence] in U rine by Screen methodOrdered By: Soco Beasley on 12-10-2024 Cannabinoids Screen Ql (U) Cannabinoids [Presence] in Urine by Screen method Negative [facility] Comment on above: These are unconfirme d results and should not be used for legal purposes. Drug Cut-Off Concentration: AMPH 1000 ng/mL MICHAEL 200 ng/mL JAVAN 200 ng/mL COCM 300 ng/mL OP 300 ng/mL PCP 25 ng/mL THC 20 ng/mL Complete Blood Count Auto Di ffon 12-10-2024 Basophils (Bld) [#/Vol] 0.1 10*3/uL Normal 0.0-0.2 [facility] Comment on above: Result Comment: PERF ORMED BY: [facility] [place] [address] PATHOLOGIST MARKETING PROGRAMS SPECIALIST MANDY ACUÑA M.D. Performed By: #### A BG #### Point of Care testing , Basophils/100 WBC (Bld) 0.5 % Normal . T [facility] Comment on above: Performed By: #### A BG #### Point of Care testing , Eosinophils (Bld) [#/Vol] 0.0 10*3/uL Normal 0.0-0.45 [facility] Comment on above: Performed By: #### A BG #### Point of Care testing , Eosinophils/100 WBC (Bld) 0.0 % Normal . [facility] Comment on above: Performed By: #### A BG #### Point of Care testing , Erythrocyte distribution width (RBC) [Ratio] 15.5 % High 11.9-15.3 [facility] Comment on above: Performed By: #### A BG #### Point of Care testing , Hematocrit (Bld) [Volume fraction] 31.0 % Low 34.0-46.4 [facility] Comment on above: Performed By: #### A BG #### Point of Care testing , Hemoglobin (Bld) [Mass/Vol] 10.1 g/dL Low 11.8-15.4 [facility] Comment on above: Performed By: #### A BG #### Point of Care testing , Lymphocytes (Bld) [#/Vol] 0.2 10*3/uL Low 1.00-4.8 [facility] Comment on above: Performed By: #### A BG #### Point of Care testing , Lymphocytes/100 WBC (Bld) 1.2 % Normal . [facility] Comment on above: Performed By: #### A BG #### Point of Care testing , MCH (RBC) [Entitic mass] 28.4 pg Normal 24.7-34.3 [facility] Comment on above: Performed By: #### A BG #### Point of Care testing , MCV (RBC) [Entitic vol] 86.7 fL Normal 80-100 [facility] Comment on above: Performed By: #### A BG #### Point of Care testing , Mean Corpuscular HGB Conc 32.7 g/dL Normal 32.0-35.0 [facility] Comment on above: Performed By: #### A BG #### Point of Care testing , Monocytes (Bld) [#/Vol] 0.5 10*3/uL Normal 0.0-0.8 [facility] Comment on above: Performed By: #### A BG #### Point of Care testing , Monocytes/100 WBC (Bld) 3.1 % Normal . [facility] Comment on above: Performed By: #### A BG #### Point of Care testing , Neutrophils (Bld) [#/Vol] 14.4 10*3/uL High 1.8-7.7 [facility] Comment on above: Performed By: #### A BG #### Point of Care testing , Neutrophils/100 WBC (Bld) 95.2 % Normal . [facility] Comment on above: Performed By: #### A BG #### Point of Care testing , NRBC% 0.0 /100{WBC} Normal 0-0.5 [facility] Comment on above: Performed By: #### A BG #### Point of Care testing , Platelet mean volume (Bld) [Entitic vol] 7.0 fL Normal 6.3-10.7 [facility] Comment on above: Performed By: #### A BG #### Point of Care testing , Platelets (Bld) [#/Vol] 236 10*3/uL Normal 150-450 [facility] Comment on above: Performed By: #### A BG #### Point of Care testing , RBC (Bld) [#/Vol] 3.57 10*6/uL Low 3.60-5.00 [facility] Comment on above: Performed By: #### A BG #### Point of Care testing , WBC (Bld) [#/Vol] 15.2 10*3/uL High 3.8-11.6 [facility] Comment on above: Performed By: #### A BG #### Point of Care testing , Comprehensive Metabolic Pane ana 12-10-2024 Albumin [Mass/Vol] 3.4 g/dL Low 3.5-5.7 [facility] Comment on above: Performed By: #### A BG #### Point of Care testing , Albumin/Globulin [Mass ratio] 1.5 {ratio} Normal [facility] Comment on above: Performed By: #### A BG #### Point of Care testing , ALP [Catalytic activity/Vol] 69 U/L Normal 34-104 [facility] Comment on above: Performed By: #### A BG #### Point of Care testing , ALT [Catalytic activity/Vol] 71 U/L High 7-52 [facility] Comment on above: Performed By: #### A BG #### Point of Care testing , Anion gap [Moles/Vol] 10.3 mmol/L Normal 6.0-15.0 Th e [facility] Comment on above: Performed By: #### A BG #### Point of Care testing , AST [Catalytic activity/Vol] 50 U/L High 13-39 [facility] Comment on above: Performed By: #### A BG #### Point of Care testing , Bilirubin [Mass/Vol] 0.4 mg/dL Normal 0.3-1.0 [facility] Comment on above: Performed By: #### A BG #### Point of Care testing , Calcium [Mass/Vol] 7.0 mg/dL Low 8.6-10.3 [facility] Comment on above: Performed By: #### A BG #### Point of Care testing , Chloride [Moles/Vol] 101 mmol/L Normal 98-107 [facility] Comment on above: Performed By: #### A BG #### Point of Care testing , CO2 [Moles/Vol] 22.0 mmol/L Normal 21.0-31.0 [facility] Comment on above: Performed By: #### A BG #### Point of Care testing , Creatinine [Mass/Vol] 0.64 mg/dL Normal 0.60-1.20 [facility] Comment on above: Performed By: #### A BG #### Point of Care testing , Creatinine Clr Calc Pharmacy 69.14 Normal [facility] Comment on above: Performed By: #### A BG #### Point of Care testing , GFR/1.73 sq M.predicted MDRD (S/P/Bld) [Vol rate/Area] mL/min/{1.73_m2} Normal [facility] Comment on above: Performed By: #### A BG #### Point of Care testing , Globulin (S) [Mass/Vol] 2.2 g/dL Normal T [facility] Comment on above: Performed By: #### A BG #### Point of Care testing , Glucose [Mass/Vol] 151 mg/dL High 70-100 [facility] Comment on above: Result Comment: [place] Glucose Reference Range is dependent on time and content of last meal. Glucose of more than 200 mg/dL in a nonstressed, ambulatory subject supports the diagnosis of Diabetes Mellitus. ADA recommended reference range Performed By: #### A BG #### Point of Care testing , Potassium [Moles/Vol] 3.3 mmol/L Low 3.5-5.1 [facility] Comment on above: Performed By: #### A BG #### Point of Care testing , Protein [Mass/Vol] 5.6 g/dL Low 6.4-8.9 [facility] Comment on above: Performed By: #### A BG #### Point of Care testing , Sodium [Moles/Vol] 130 mmol/L Low 136-145 [facility] Comment on above: Performed By: #### A BG #### Point of Care testing , Urea nitrogen [Mass/Vol] 14 mg/dL Normal 7-25 [facility] Comment on above: Performed By: #### A BG #### Point of Care testing , Drug Screen,Urineon 12-10-19 Amphetamine Screen,Urine Negative Normal Negative [facility] Comment on above: Performed By: #### U RDS #### [place] [address] [place] Barbiturate Screen,Urine Negative Normal Negative [facility] Comment on above: Performed By: #### U RDS #### [place] [address] [place] Benzodiazepines Screen,Urine Positive High Negative [facility] Comment on above: Performed By: #### U RDS #### [place] [address] [place] Cannabinoid Screen,Urine Negative Normal Negative [facility] Comment on above: Result Comment: Thes e are unconfirmed results and should not be used for legal purposes. Drug Cut-Off Concentration: AMPH 1000 ng/mL MICHAEL 200 ng/mL JAVAN 200 ng/mL COCM 300 ng/mL OP 300 ng/mL PCP 25 ng/mL THC 20 ng/mL PERFORMED BY: [place] [address] PATHOLOGIST MARK[employer]GR[employer] SPECIALIST MANDY ACUÑA M.D. Performed By: #### U RDS #### [place] [address] [place] Cocaine Screen,Urine Negative Normal Negative [facility] Comment on above: Performed By: #### U RDS #### [place] [address] [place] Opiate Screen,Urine Positive High Negative [facility] Comment on above: Performed By: #### U RDS #### [place] [address] [place] Phencyclidine Screen,Urine Negative Normal Negative [facility] Comment on above: Performed By: #### U RDS #### [facility] [address] echo transthoracicon [facility] echo transthoracic [facility] Main [place] [address] [place] [id number] Echocardiogram Signed Patient: Julian Montaño MR#: [id number] [birth year] : 1955 Acct:[id number] Age/Sex: 69 / F ADM Date: 12/09/24 Loc: Room: 6T1434-9 Type: ADM IN Attending Dr: Daniel Garza MD Ordering Provider: Krissy Cortez MD Date of Service: 12/10/24 [facility] [facility] echo transthoracic: Elevated troponin Copies to: MD [...] Gildardo Pastor MD 12/10/24 1712 Normal [facility] Glucose Poct Glucometerson 0 12-10-2024 Glucose [Mass/Vol] 135 mg/dL Normal [facility] Comment on above: Result Comment: [place] Glucose Reference Range is dependent on time and content of last meal. Glucose of more than 200 mg/dL in a nonstressed, ambulatory subject supports the diagnosis of Diabetes Mellitus. PERFORMED BY: [facility] [place] [address] PATHOLOGIST MARKETING PROGRAMS SPECIALIST MANDY ACUÑA M.D. Performed By: #### G LULS #### Point of Care testing , Magnesiumon 12-10-2024 Magnesium [Mass/Vol] 1.7 mg/dL Low 1.9-2.7 [facility] Comment on above: Result Comment: PERF ORMED BY: [place] [address] PATHOLOGIST MARKETING PROGRAMS SPECIALIST MANDY ACUÑA M.D. Performed By: #### U RDS #### [address] Opiates [Presence] in Urine by Screen methodOrdered By: Soco Beasley on 12-10-2024 Opiates Screen Ql (U) Opiates [Presence] in Urine by Screen method High Negative [facility] Phencyclidine Screen Ql (U)O rdered By: Soco Beasley on 12-10-2024 Phencyclidine Ql (U) Phencyclidine [Presence] in Urine by Screen method Negative [facility] Troponin I High Sensitivityo n 12-10-2024 Troponin I High Sensitivity 1309 Off scale high 0-15 [facility] Comment on above: Result Comment: Crit ical Result : Called to and read back by: VIOLA KAY at: 12/10/2024 07:21:46 by:CELESTINA The Troponin units of report have been changed to meet the Chest Pain Accreditation requirement, element EC5.M1l2. Troponin units are changed from pg/ml to ng/L. Also, the decimal is removed and results are in whole numbers. PERFORMED BY: [place] [id number] PATHOLOGIST MARKETING PROGRAMS SPECIALIST MANDY ACUÑA M.D. Performed By: #### G LULS #### Point of Care testing , Troponin I.cardiac [Mass/vol ume] in Serum or Plasma by Detection limit <= 0.01 ng/Ordered By: Soco Beasley on 12-10-2024 Troponin I.cardiac DL <= 0.01 ng/mL [Mass/Vol] Troponin I.cardiac [Mass/volume] in Serum or Plasma by Detection limit <= 0.01 ng/ Critically high 0-15 [facility] Comment on above: Critical Result : [...] By: Roman Ugalde on 12-10-2024 Study report [facility] Main [address] [address] XRay Report Signed Patient: Julian Montaño MR#: [id number] : 1955 Acct:[id number] Age/Sex: 69 / F ADM Date: 5 Loc: Room: [address] [place] [address] Type: ADM IN Attending Dr: Soco Beasley MD Copies to: Soco Beasley MD~ Ordering Provider: Soco Beasley MD Date of Service: 12/10/24 XR/XR chest 1V portable: Intubated SINGLE VIEW CHEST CLINICAL HISTORY: Transfer from [place]. Following responsive. COMPARISON: Chest 12/09/2024 FINDINGS: Enteric tube tip below the level of the diaphragm. ET tube in satisfactory position. Heart appears normal in size. Bibasilar atelectasis/interstit ial changes. No consolidation pneumothorax pleural effusion or free air. XR/XR chest 1V portable IMPRESSION: TUBES IN SATISFACTORY POSITIONS. BIBASILAR ATELECTASIS/INTERSTIT IAL CHANGES. Impression dictated by: Ryan Ugalde Jr., D.OLakeisha12/10/2024 9:13 AM Dictation Location: [place] [address] Transcribed By: [facility] 12/10/24912 Dictated By: Ryan Ugalde Jr, DO 12/10/24911 Signed By: 12/10/24912 [facility] Study report [address] [address] XRay Report Signed Patient: Julian Montaño MR#: [id number] : 1955 Acct:[id number] Age/Sex: 69 / F ADM Date: 5 Loc: Room: [address] [place] [address] Type: ADM IN Attending Dr: Soco Beasley [...] Ugalde Jr., D.OLakeisha12/10/2024 8:33 AM Dictation Location: [place] [address] Transcribed By: [facility] 12/10/24 0833 Dictated By: Ryan Ugalde Jr, DO 12/10/24 0831 Signed By: 12/10/24 0833 [facility] X-ray reportOrdered By: Hima Toledo on 12-10-2024 Study report [facility] Main [place] [address] [place] [address] XRay Report Signed Patient: Julian Montaño MR#: [id number] : 1955 Acct:[id number] Age/Sex: 69 / F ADM Date: 5 Loc: Room: [address] [place] [address] Type: ADM IN Attending Dr: Soco Beasley [...] Torsten Toledo MD 12/10/24828 Signed By: 12/10/24830 [facility] Work Phone: XR abdomen 1Von 12-10-2024 XR abdomen 1V [facility] [address] [address] XRay Report Signed Patient: Julian Montaño MR#: [id number] [birth year] : 1955 Acct:[id number] Age/Sex: 69 / F ADM Date: 12/09/24 Loc: Room: [address] [place] [address] Type: ADM IN Attending Dr: Soco Beasley [...] Ugalde Jr., D.OLakeisha12/10/2024 8:33 AM Dictation Location: [facility]IO-PC-23 Transcribed By: [facility] 12/10/2433 Dictated By: Ryan Ugalde Jr, DO 12/10/2431 Signed By: 12/10/2433 Normal [facility] XR chest 1V portableon 12-10 XR chest 1V portable [facility] [address] [address] XRay Report Signed Patient: Julian Montaño MR#: [id number] [birth year] : 1955 Acct:[id number] Age/Sex: 69 / F ADM Date: 12/09/24 Loc: Room: [address] [place] [address] Type: ADM IN Attending Dr: Soco Beasley MD Copies to: Soco Beasley MD Ordering Provider: Soco Beasley MD Date of Service: 12/10/24 XR/XR chest 1V portable: Intubated SINGLE VIEW CHEST CLINICAL HISTORY: Transfer from [place]. Following responsive. COMPARISON: Chest 12/09/2024 FINDINGS: Enteric tube tip below the level of the diaphragm. ET tube in satisfactory position. Heart appears normal in size. Bibasilar atelectasis/interstit ial changes. No consolidation pneumothorax pleural effusion or free air. XR/XR chest 1V portable IMPRESSION: TUBES IN SATISFACTORY POSITIONS. BIBASILAR ATELECTASIS/INTERSTIT IAL CHANGES. Impression dictated by: Ryan Ugalde Jr., D.O.12/10/2024 9:13 AM Dictation Location: [place] [address] Transcribed By: [facility] 12/10/24 0913 Dictated By: Ryan Ugalde Jr, DO 12/10/24 0912 Signed By: 12/10/24 0913 Normal [facility] XR chest 1V portable [place] [address] XRay Report Signed Patient: Julian Montaño MR#: [id number] [birth year] : 1955 Acct:[id number] Age/Sex: 69 / F ADM Date: 12/09/24 Loc: Room: [address] [place] [address] Type: ADM IN Attending Dr: Soco Beasley [...] Torsten Toledo M.D.12/10/2024 8:31 AM Dictation Location: [place] [address] Transcribed By: [facility] 12/10/24830 Dictated By: Torsten Toledo MD 12/10/24828 Signed By: 12/10/24830 Normal [facility] Aerobic Cultureon 12-09-2024 Aerobic Culture Light Normal Respiratory Chase 2 Days Gram Stain Result 3+ White Blood Cells Rare Epithelial Cells 4+ Gram Positive Cocci in Chains AND PAIRS PERFORMED BY: [place] [address] [place] [address] PATHOLOGIST MARKETING PROGRAMS SPECIALIST MANDY ACUÑA M.D. Normal [facility] Comment on above: Performed By: #### G LULS #### Point of Care testing , Aerobic cultureOrdered By: James Beasley on 12-09-2024 Bacteria identified Aer cx Nom (Unsp spec) Aerobic culture [facility] Anisocytosis LM Ql (Bld)Orde red By: Soco Beasley on 12-09-2024 Anisocytosis Ql (Bld) Anisocytosis [Presence] in Blood by Light microscopy [facility] Arterial Blood Gason 025 ABG Base Excess -4.7 mmol/L Low -3.0-3.0 [facility] Comment on above: Performed By: #### A BG #### Point of Care testing , ABG Frac Inspired O2 40 % Normal [facility] Comment on above: Performed By: #### A BG #### Point of Care testing , ABG Oxygen Content 6.5 mmol/L Low 6.6-9.7 [facility] Comment on above: Performed By: #### A BG #### Point of Care testing , ABG Oxygen Saturation 90.5 % Low 95.0-100.0 [facility] Comment on above: Performed By: #### A BG #### Point of Care testing , ABG PCO2 57.0 mm[Hg] Off scale high 35.0-45.0 [facility] Comment on above: Performed By: #### A BG #### Point of Care testing , ABG PEEP 5 cmH20 Normal [facility] Comment on above: Performed By: #### A BG #### Point of Care testing , ABG PH 7.23 Low 7.35-7.45 [facility] Comment on above: Performed By: #### A BG #### Point of Care testing , ABG PO2 66.7 mm[Hg] Low 80.0-100.0 [facility] Comment on above: Performed By: #### A BG #### Point of Care testing , ABG TV 450 mL Normal [facility] Comment on above: Performed By: #### A BG #### Point of Care testing , CO2 [Moles/Vol] 25.1 mmol/L Normal 23.0-27.0 [facility] Comment on above: Performed By: #### A BG #### Point of Care testing , HCO3 (Bld) [Moles/Vol] 23.3 mmol/L Normal 23.0-29.0 [facility] Comment on above: Performed By: #### A BG #### Point of Care testing , Respiratory Critical Normal [facility] Comment on above: Result Comment: Crit ical Value called on: 12/09/2024 at 21:27 PERFORMED BY: [place] [address] [place] [address] PATHOLOGIST MARKETING PROGRAMS SPECIALIST MANDY ACUÑA M.D. Performed By: #### A BG #### Point of Care testing , Set Respiratory Rate 14 Normal [facility] Comment on above: Performed By: #### A BG #### Point of Care testing , VBG Draw Site Left Radial Normal [facility] Comment on above: Performed By: #### A BG #### Point of Care testing , Ventilator Mode AC Normal [facility] Comment on above: Performed By: #### A BG #### Point of Care testing , Band form neutrophils/100 WB C Manual cnt (Bld)Ordered By: Soco Beasley on 12-09-2024 Band form neutrophils/100 WBC (Bld) Peripheral white blood cell differential % bands, microscopic exam High 0-5 [facility] Blood Cultureon 12-09-2024 Bacteria identified Cx Nom (Bld) NO GROWTH 5 DAYS PERFORMED BY: [place] [address] PATHOLOGIST MARKETING PROGRAMS SPECIALIST MANDY ACUÑA M.D. Normal [facility] Comment on above: Performed By: #### G LULS #### Point of Care testing , Bacteria identified Cx Nom (Bld) NO GROWTH 5 DAYS PERFORMED BY: [address] [address] PATHOLOGIST MARKETING PROGRAMS SPECIALIST MANDY ACUÑA M.D. Normal [facility] Comment on above: Performed By: #### G LULS #### Point of Care testing , [place] cells [Presence] in Blo od by Light microscopyOrdered By: Soco Beasley on 12-09-2024 [place] cells LM Ql (Bld) [place] cells [Prese nce] in Blood by Light microscopy [facility] Comprehensive Metabolic Pane ana 12-09-2024 Albumin [Mass/Vol] 3.6 g/dL Normal 3.5-5.7 [facility] Comment on above: Performed By: #### A BG #### Point of Care testing , Albumin/Globulin [Mass ratio] 1.6 {ratio} Normal [facility] Comment on above: Performed By: #### A BG #### Point of Care testing , ALP [Catalytic activity/Vol] 78 U/L Normal 34-104 [facility] Comment on above: Result Comment: PERF ORMED BY: [address] [address] PATHOLOGIST MARKETING PROGRAMS SPECIALIST MANDY ACUÑA M.D. Performed By: #### A BG #### Point of Care testing , ALT [Catalytic activity/Vol] 82 U/L High 7-52 [facility] Comment on above: Performed By: #### A BG #### Point of Care testing , Anion gap [Moles/Vol] 8.6 mmol/L Normal 6.0-15.0 [facility] Comment on above: Performed By: #### A BG #### Point of Care testing , AST [Catalytic activity/Vol] 61 U/L High 13-39 [facility] Comment on above: Performed By: #### A BG #### Point of Care testing , Bilirubin [Mass/Vol] 0.4 mg/dL Normal 0.3-1.0 [facility] Comment on above: Performed By: #### A BG #### Point of Care testing , Calcium [Mass/Vol] 7.1 mg/dL Low 8.6-10.3 [facility] Comment on above: Performed By: #### A BG #### Point of Care testing , Chloride [Moles/Vol] 97 mmol/L Low 98-107 [facility] Comment on above: Performed By: #### A BG #### Point of Care testing , CO2 [Moles/Vol] 24.6 mmol/L Normal 21.0-31.0 [facility] Comment on above: Performed By: #### A BG #### Point of Care testing , Creatinine [Mass/Vol] 0.68 mg/dL Normal 0.60-1.20 [facility] Comment on above: Performed By: #### A BG #### Point of Care testing , GFR/1.73 sq M.predicted MDRD (S/P/Bld) [Vol rate/Area] mL/min/{1.73_m2} Normal [facility] Comment on above: Performed By: #### A BG #### Point of Care testing , Globulin (S) [Mass/Vol] 2.3 g/dL Normal [facility] Comment on above: Performed By: #### A BG #### Point of Care testing , Glucose [Mass/Vol] 186 mg/dL High 70-100 [facility] Comment on above: Result Comment: [place] Glucose Reference Range is dependent on time and content of last meal. Glucose of more than 200 mg/dL in a nonstressed, ambulatory subject supports the diagnosis of Diabetes Mellitus. ADA recommended reference range Performed By: #### A BG #### Point of Care testing , Potassium [Moles/Vol] 3.2 mmol/L Low 3.5-5.1 [facility] Comment on above: Performed By: #### A BG #### Point of Care testing , Protein [Mass/Vol] 5.9 g/dL Low 6.4-8.9 [facility] Comment on above: Performed By: #### A BG #### Point of Care testing , Sodium [Moles/Vol] 127 mmol/L Low 136-145 [facility] Comment on above: Performed By: #### A BG #### Point of Care testing , Urea nitrogen [Mass/Vol] 16 mg/dL Normal 7-25 [facility] Comment on above: Performed By: #### A BG #### Point of Care testing , Diff and CBCon 12-09-2024 Anisocytosis Ql (Bld) Slight Normal [facility] Comment on above: Performed By: #### A BG #### Point of Care testing , Band form neutrophils/100 WBC (Bld) 27 % High 0-5 [facility] Comment on above: Performed By: #### A BG #### Point of Care testing , Crenated RBC Slight Normal [facility] Comment on above: Performed By: #### A BG #### Point of Care testing , Erythrocyte distribution width (RBC) [Ratio] 15.4 % High 11.9-15.3 [facility] Comment on above: Performed By: #### A BG #### Point of Care testing , Hematocrit (Bld) [Volume fraction] 33.0 % Low 34.0-46.4 [facility] Comment on above: Performed By: #### A BG #### Point of Care testing , Hemoglobin (Bld) [Mass/Vol] 10.7 g/dL Low 11.8-15.4 [facility] Comment on above: Performed By: #### A BG #### Point of Care testing , Lymphocytes/100 WBC (Bld) 0 % Low 18-42 [facility] Comment on above: Performed By: #### A BG #### Point of Care testing , MCH (RBC) [Entitic mass] 28.1 pg Normal 24.7-34.3 [facility] Comment on above: Performed By: #### A BG #### Point of Care testing , MCV (RBC) [Entitic vol] 87.0 fL Normal 80-100 [facility] Comment on above: Performed By: #### A BG #### Point of Care testing , Mean Corpuscular HGB Conc 32.3 g/dL Normal 32.0-35.0 [facility] Comment on above: Performed By: #### A BG #### Point of Care testing , Microcytosis Slight Normal [facility] Comment on above: Performed By: #### A BG #### Point of Care testing , Monocytes/100 WBC (Bld) 2 % Normal 2-11 [facility] Comment on above: Performed By: #### A BG #### Point of Care testing , Platelet Estimate Normal Normal Normal [facility] Comment on above: Performed By: #### A BG #### Point of Care testing , Platelet mean volume (Bld) [Entitic vol] 6.9 fL Normal 6.3-10.7 [facility] Comment on above: Result Comment: PERF ORMED BY: [address] [place] [address] PATHOLOGIST MARKETING PROGRAMS SPECIALIST MANDY ACUÑA M.D. Performed By: #### A BG #### Point of Care testing , Platelet Morphology Normal Normal Normal [facility] Comment on above: Result Comment: PERF ORMED BY: [facility] [address] [place] [address] PATHOLOGIST MARKETING PROGRAMS SPECIALIST MANDY ACUÑA M.D. Performed By: #### A BG #### Point of Care testing , Platelets (Bld) [#/Vol] 236 10*3/uL Normal 150-450 [facility] Comment on above: Performed By: #### A BG #### Point of Care testing , Poikilocytosis Slight Normal [facility] Comment on above: Performed By: #### A BG #### Point of Care testing , Polychromasia Slight Normal [facility] Comment on above: Performed By: #### A BG #### Point of Care testing , RBC (Bld) [#/Vol] 3.80 10*6/uL Normal 3.60-5.00 [facility] Comment on above: Performed By: #### A BG #### Point of Care testing , Segmented neutrophils/100 WBC (Bld) 71 % High 50-70 [facility] Comment on above: Performed By: #### A BG #### Point of Care testing , WBC (Bld) [#/Vol] 15.9 10*3/uL High 3.8-11.6 [facility] Comment on above: Performed By: #### A BG #### Point of Care testing , ECG 12 lead ECGon 12-09-2024 ECG 12 lead ECG [place] [address] Electrocardiograph Report Signed Patient: Julian Montaño MR#: [id number] 27 : 1955 Acct:[id number] Age/Sex: 69 / F ADM Date: 12/09/24 Loc: Room: [address] [place] [address] Type: ADM IN Attending Dr: Daniel Garza [...] block Abnormal ECG Confirmed by Krissy Cortez ([id number]) on 12/12/2024 12:01:02 AM Referred By: Electronically Signed By: Krissy Cortez Transcribed By: MUS Signed By Krissy Cortez MD 5 0001 Normal [facility] Erythrocyte morphology findi ng [Identifier] in BloodOrdered By: Soco Beasley on 12-09-2024 RBC morphology finding Nom (Bld) RBC morphology [facility] Gram Stainon 12-09-2024 Microscopic observation Gram stain Nom (Unsp spec) Gram Stain Result 3+ White Blood Cells Rare Epithelial Cells 4+ Gram Positive Cocci in Chains AND PAIRS PERFORMED BY: [address] [place] [address] PATHOLOGIST MARKETING PROGRAMS SPECIALIST MANDY ACUÑA M.D. Normal [facility] Comment on above: Performed By: #### G LULS #### Point of Care testing , Gram stain microscopyOrdered By: Soco Beasley on 12-09-2024 Microscopic observation Gram stain Nom (Unsp spec) Gram stain microscopy [facility] Laboratory - Microbiology an d Antimicrobial susceptibilityOrdered By: Soco Beasley on 12-09-2024 Bacteria identified Cx Nom (Bld) NO GROWTH 5 DAYS [facility] Bacteria identified Cx Nom (Bld) NO GROWTH 5 DAYS [facility] Lactate [Moles/volume] in Se rum or PlasmaOrdered By: Soco Beasley on 12-09-2024 Lactate [Moles/Vol] Lactate [Moles/volume] in Serum or Plasma 0.5-1.9 [facility] Comment on above: Lactic Acid referenc e range has been updated to 0.5 1.9 mmol/L and the critical range of 2.0 or greater. Lactic Acidon 12-09-2024 Lactate [Moles/Vol] 1.4 mmol/L Normal 0.5-1.9 [facility] Comment on above: Result Comment: Lact ic Acid reference range has been updated to 0.5 ? 1.9 mmol/L and the critical range of 2.0 or greater. PERFORMED BY: [address] [place] [address] PATHOLOGIST MARKETING PROGRAMS SPECIALIST MANDY ACUÑA M.D. Performed By: #### G LULS #### Point of Care testing , Lactate [Moles/Vol] 1.3 mmol/L Normal 0.5-1.9 [facility] Comment on above: Result Comment: Lact ic Acid reference range has been updated to 0.5 ? 1.9 mmol/L and the critical range of 2.0 or greater. PERFORMED BY: [facility] [place] [address] PATHOLOGIST MARKETING PROGRAMS SPECIALIST MANDY ACUÑA M.D. Performed By: #### G LULS #### Point of Care testing , Lymphocytes/100 WBC Manual c nt (Bld)Ordered By: Soco Beasley on 12-09-2024 Lymphocytes/100 WBC (Bld) Lymphocytes/100 leukocytes in Blood by Manual count Low 18-42 [facility] Microcytes LM Ql (Bld)Ordere d By: Soco Beasley on 12-09-2024 Microcytes Ql (Bld) Microcytes [Presence ] in Blood by Light microscopy [facility] Monocytes/100 WBC Manual cnt (Bld)Ordered By: Soco Beasley on 12-09-2024 Monocytes/100 WBC (Bld) Monocytes/100 leukocytes in Blood by Manual count 2-11 [facility] Platelet adequacy [Presence] in Blood by Light microscopyOrdered By: Soco Beasley on 12-09-2024 Platelets LM Ql (Bld) Platelet adequacy [Presence] in Blood by Light microscopy Normal [facility] Platelet morphology finding [Identifier] in BloodOrdered By: Soco Beasley on 12-09-2024 Platelet morphology finding Nom (Bld) Platelet morphology finding [Identifier] in Blood Normal [facility] Poikilocytosis [Presence] in Blood by Light microscopyOrdered By: Soco Beasley on 12-09-2024 Poikilocytosis LM Ql (Bld) Poikilocytosis [Presence] in Blood by Light microscopy [facility] Polychromasia [Presence] in Blood by Light microscopyOrdered By: Soco Beasley on 12-09-2024 Polychromasia LM Ql (Bld) Polychromasia [Presence] in Blood by Light microscopy [facility] Segmented neutrophils/100 WB C Manual cnt (Bld)Ordered By: Soco Beasley on 12-09-2024 Segmented neutrophils/100 WBC (Bld) Manual blood segmented neutrophils/100 leukocytes High 50-70 [facility] Triglycerideson 12-09-2024 Triglyceride [Mass/Vol] 63 mg/dL Normal 35-149 [facility] Comment on above: Result Comment: TRIG ATP III CLASSIFICATION TRIG less than 150 mg/dL Normal TRIG 150-199 mg/dL Borderline high TRIG 200-500 mg/dL High TRIG greater than 500 mg/dL Very high Standard traceable to the Center for Disease Conrtrol and Prevention (CDC) test method. PERFORMED BY: [facility] [address] [address] PATHOLOGIST MARKETING PROGRAMS SPECIALIST MANDY ACUÑA M.D. Performed By: #### G LULS #### Point of Care testing , Troponin I High Sensitivityo n 12-09-2024 Troponin I High Sensitivity 1309 Off scale high 0-15 [facility] Comment on above: Result Comment: Crit ical Result : Called to and read back by: VIOLA KAY at: 12/09/2024 23:07:02 by:GENA The Troponin units of report have been changed to meet the Chest Pain Accreditation requirement, element EC5.M1l2. Troponin units are changed from pg/ml to ng/L. Also, the decimal is removed and results are in whole numbers. PERFORMED BY: [facility] [address] [address] PATHOLOGIST MARKETING PROGRAMS SPECIALIST MANDY ACUÑA M.D. Performed By: #### A BG #### Point of Care testing , HbA1c (Bld) [Mass fraction]o n 09-20-2024 Interpretation and review of laboratory results Normal [facility] - Hematology and Cell countson 09-20-2024 HbA1c (Bld) [Mass fraction] 6.1 % [facility] Neurology Forms- [employer] Neurology Forms- Text [id number] #[id number] Normal [facility] Consent for Treatmenton Consent for Treatment [id number] .[id number] Normal [facility] Physician Orderon 12-05-2023 Physician Order [id number] .00TIFF Normal [facility] MRI Brain w/ + w/o Contrasto [...] Wheeler FINAL REPORT Dictated: 12/02/2023 12:36 pm Josi ANGULO, Lincoln Hoffman Signed (Electronic Signature): 12/02/2023 12:36 pm Signed by: Lincoln Prater MD Transcribed by: SANA Technologist: CORDELIA Technical Comments [employer] Contrast amount in ml's: 6 Normal [facility] MRI Spine Cervical w/o Contr bonnie [...] SANA Technologist: CORDELIA Technical Comments None Normal [facility] BUNon 11-30-2023 Urea nitrogen [Mass/Vol] 17 mg/dL Normal 5-21 [facility] Comment on above: Performed By: #### 1 [id number], [id number] #### [facility] [address] [place] [address] Consent for Treatmenton 11-14 Consent for Treatment [id number] .[id number] Normal [facility] Creatinineon 11-30-2023 Creatinine [Mass/Vol] 0.8 mg/dL Normal 0.5-1.3 [facility] Comment on above: Performed By: #### 1 [id number], [id number], [id number] #### [facility] [address] [place] [address] RAD - MRI Screening Formon 0 11-30-2023 RAD - MRI Screening Form [id number] .00TIFF Normal [facility] eGFRon 11-30-2023 eGFR 79 mL/min/1.73 m2 Normal >=59 [facility] Comment on above: Order Comment: Order added by Discern Expert. Performed By: #### 1 [id number], [id number] #### [facility] [address] [place] [address] Physician Orderon 10-28-2023 Physician Order [id number] .00TIFF Normal [facility] CBC AUTO DIFFon 01-05-2023 BASO # 0.1 103/ul Normal 0.0-0.1 [facility] Comment on above: Performed By: #### C BC #### [facility] [address] [place] [address] Dr. Stan Aceves Basophils/100 WBC (Bld) 0.7 % Normal 0.2-2.0 [facility] Comment on above: Performed By: #### C BC #### [facility] [address] [address] [address] Stan Aceves EO # 0.1 103/ul Normal 0.0-0.7 [facility] Comment on above: Performed By: #### C BC #### [facility] [address] [place] [address] Dr. Stan Aceves Eosinophils/100 WBC (Bld) 1.0 % Normal 0.9-7.0 [facility] Comment on above: Performed By: #### C BC #### [facility] [address] [place] [address] Dr. Stan Aceves Erythrocyte distribution width (RBC) [Ratio] 16.8 % Critically high 11.0-15.0 [facility] Comment on above: Performed By: #### C BC #### [facility] [address] [place] [address] Dr. Stan Aceves Hematocrit (Bld) [Volume fraction] 33.7 % Critically low 36.0-48.0 [facility] Comment on above: Performed By: #### C BC #### [facility] [address] [place] [address] Dr. Satn Aceves Hemoglobin (Bld) [Mass/Vol] 10.6 g/dL Critically low 12.0-16.0 [facility] Comment on above: Performed By: #### C BC #### [facility] [address] [place] [address] Dr. Stan Aceves IG # 0.03 10e3/ul Normal 0.00-0.03 [facility] Comment on above: Performed By: #### C BC #### [facility] [address] [place] [address] Dr. Stan Aceves IG % 0.3 % Normal 0.0-0.5 [facility] Comment on above: Performed By: #### C BC #### [facility] [address] [place] [address] Dr. Stan Aceves LYMPH # 0.9 103/ul Critically low 1.2-3.8 [facility] Comment on above: Performed By: #### C BC #### [facility] [address] [place] [address] Dr. Stan Aceves Lymphocytes/100 WBC (Bld) 9.9 % Critically low 20.5-60.0 [facility] Comment on above: Performed By: #### C BC #### [facility] [address] [place] [address] Dr. Stan Aceves MANUAL DIFF REQ NO Normal [facility] Comment on above: Performed By: #### C BC #### [facility] [address] [place] [address] Dr. Stan Aceves MCH (RBC) [Entitic mass] 25.7 pg Critically low 26.7-34 .0 [facility] Comment on above: Performed By: #### C BC #### [facility] [address] [place] [address] Dr. Stan Aceves MCHC (RBC) [Mass/Vol] 31.5 g/dL Normal 29.9-35.2 [facility] Comment on above: Performed By: #### C BC #### [facility] [address] [place] [address] Dr. Stan Aceves MCV (RBC) [Entitic vol] 81.6 fL Normal 81.0-99.0 [facility] Comment on above: Performed By: #### C BC #### [facility] [address] [place] [address] Dr. tSan Aceves MONO # 0.7 103/ul Normal 0.3-0.8 [facility] Comment on above: Performed By: #### C BC #### [facility] [address] [place] [address] Dr. Stan Aceves Monocytes/100 WBC (Bld) 7.3 % Normal 1.7-12.0 [facility] Comment on above: Performed By: #### C BC #### [facility] [address] [place] [address] Dr. Stan Aceves NEUT # 7.4 103/ul Critically high 1.4-6.5 [facility] Comment on above: Performed By: #### C BC #### [facility] [address] [place] [address] Dr. Stan Aceves Neutrophils/100 WBC (Bld) 80.8 % Critically high 43.0-75.0 [facility] Comment on above: Performed By: #### C BC #### [facility] [address] [address] [address] Stan Aceves Platelet mean volume (Bld) [Entitic vol] 8.2 fL Critically low 9.5-13.5 [facility] Comment on above: Performed By: #### C BC #### [facility] [address] [address] [address] Stan Aceves PLT 396 103/ul Normal 150-450 [facility] Comment on above: Performed By: #### C BC #### [facility] [address] [address] [address] Stan Aceves RBC 4.13 106/ul Critically low 4.20-5.40 [facility] Comment on above: Performed By: #### C BC #### [facility] [address] [place] [address] Dr. Stan Aceves WBC 9.2 103/ul Normal 4.0-11.0 [facility] Comment on above: Performed By: #### C BC #### [facility] [address] [place] [address] Dr. Stan Aceves GLYCOHEMOGLOBIN A1Con 2022 ADA RECOMMENDATION SEE BELOW Normal [facility] Comment on above: Result Comment: ADA RECOMMENDED LIMIT 4.0 - 6.0 ADA THERAPEUTIC TARGET < 7.0 ACTION SUGGESTED > 7.0 Performed By: #### A 1C #### [facility] [address] [place] [address] Dr. Stan Aceves Glucose [Mass/Vol] 126 mg/dL Normal [facility] Comment on above: Performed By: #### A 1C #### [facility] [address] [place] [address] Dr. Stan Aceves HbA1c (Bld) [Mass fraction] 6.0 % Normal 4.5-6.2 [facility] Comment on above: Performed By: #### A 1C #### [facility] [address] [place] [address] Dr. Stan Aceves IRONon 01-05-2023 Iron [Mass/Vol] 36.0 ug/dL Critically low 50.0-170.0 [facility] Comment on above: Performed By: #### I KAM #### [facility] [address] [place] [address] Dr. Stan Aceves MICROALBUMIN, RAND URon 12-16 mALB <1.3 Normal <=30.0 [facility] Comment on above: Performed By: #### M ALBR #### [facility] [address] [place] [address] Dr. Stan Aceves PROF 14(COMP METB)on 023 Albumin [Mass/Vol] 3.5 g/dL Normal 3.4-5.0 [facility] Comment on above: Performed By: #### T 4, CMP, TSH #### [facility] [address] [place] [address] Dr. Stan Aceves Albumin/Globulin [Mass ratio] 1.0 {ratio} Normal [facility] Comment on above: Performed By: #### T 4, CMP, TSH #### [facility] [address] [place] [address] Dr. Stan Aceves ALP [Catalytic activity/Vol] 105 U/L Normal 46-116 [facility] Comment on above: Performed By: #### T 4, CMP, TSH #### [facility] [address] [place] [address] Dr. Stan Aceves ALT [Catalytic activity/Vol] 20 U/L Normal 14-59 [facility] Comment on above: Performed By: #### T 4, CMP, TSH #### [facility] [address] [place] [address] Dr. Stan Aceves Anion gap [Moles/Vol] 12.1 mmol/L Normal [facility] Comment on above: Performed By: #### T 4, CMP, TSH #### [facility] [address] [place] [address] Dr. Stan Aceves AST [Catalytic activity/Vol] 14 U/L Critically low 15-37 [facility] Comment on above: Performed By: #### T 4, CMP, TSH #### [facility] [address] [address] [address] Stan Aceves Bilirubin [Mass/Vol] 0.3 mg/dL Normal 0.2-1.0 [facility] Comment on above: Performed By: #### T 4, CMP, TSH #### [facility] [address] [place] [address] Dr. Stan Aceves Calcium [Mass/Vol] 9.1 mg/dL Normal 8.5-10.1 [facility] Comment on above: Performed By: #### T 4, CMP, TSH #### [facility] [address] [place] [address] Dr. Stan Aceves Chloride [Moles/Vol] 103 mmol/L Normal 98-107 [facility] Comment on above: Performed By: #### T 4, CMP, TSH #### [facility] [address] [place] [address] Dr. Stan Aceves CO2 [Moles/Vol] 26.8 mmol/L Normal 21.0-32.0 [facility] Comment on above: Performed By: #### T 4, CMP, TSH #### [facility] [address] [place] [address] Dr. Stan Aceves Creatinine [Mass/Vol] 0.84 mg/dL Normal 0.55-1.02 [facility] Comment on above: Performed By: #### T 4, CMP, TSH #### [facility] [address] [place] [address] Dr. Stan Aceves EGFR-AF PORTUGUESE >60 Normal >=60 [facility] Comment on above: Performed By: #### T 4, CMP, TSH #### [facility] [address] [place] [address] Dr. Stan Aceves EGFR-NON AF PORTUGUESE >60 Normal >=60 [facility] Comment on above: Performed By: #### T 4, CMP, TSH #### [facility] [address] [place] [address] Dr. Stan Aceves Globulin (S) [Mass/Vol] 3.6 g/dL Normal [facility] Comment on above: Performed By: #### T 4, CMP, TSH #### [facility] [address] [place] [address] Dr. Stan Aceves Glucose [Mass/Vol] 84 mg/dL Normal 74-106 [facility] Comment on above: Performed By: #### T 4, CMP, TSH #### [facility] [address] [place] [address] Dr. Stan Aceves Potassium [Moles/Vol] 3.9 mmol/L Normal 3.5-5.1 [facility] Comment on above: Performed By: #### T 4, CMP, TSH #### [facility] [address] [place] [address] Dr. Stan Aceves Protein [Mass/Vol] 7.1 g/dL Normal 6.4-8.2 [facility] Comment on above: Performed By: #### T 4, CMP, TSH #### [facility] [address] [place] [address] Dr. Stan Aceves Sodium [Moles/Vol] 138 mmol/L Normal 136-145 [facility] Comment on above: Performed By: #### T 4, CMP, TSH #### [facility] [address] [place] [address] Dr. Stan Aceves Urea nitrogen [Mass/Vol] 12.0 mg/dL Normal 7.0-18.0 [facility] Comment on above: Performed By: #### T 4, CMP, TSH #### [facility] [address] [place] [address] Dr. Stan Aceves Urea nitrogen/Creatinine [Mass ratio] 14.3 mg/mg Normal [facility] Comment on above: Performed By: #### T 4, CMP, TSH #### [facility] [address] [place] [address] Dr. Stan Aceves T4on 01-05-2023 T4 [Mass/Vol] 8.70 ug/dL Normal 4.80-13.90 [facility] Comment on above: Performed By: #### T 4, CMP, TSH #### [facility] [address] [place] [address] Dr. Stan Aceves TSHon 01-05-2023 TSH 2.209 uIU/mL Normal 0.358-3.740 [facility] Comment on above: Performed By: #### T 4, CMP, TSH #### [facility] [address] [address] [address] Stan Aceves MRI BRAIN WO W [...] PATRICK PIERRE Date: 2022-04-27 10:16 Normal [facility] CREATININEon 04-08-2022 Creatinine [Mass/Vol] 0.91 mg/dL Normal 0.55-1.02 [facility] Comment on above: Performed By: #### C ONIEL #### [facility] [address] [address] [address] Stan Aceves EGFR-AF PORTUGUESE >60 Normal >=60 [facility] Comment on above: Performed By: #### C ONIEL #### [facility] [address] [place], [place] [address] Dr. Stan Aceves EGFR-NON AF PORTUGUESE >60 Normal >=60 [facility] Comment on above: Performed By: #### C ONIEL #### [facility] [address] [place], [place] [address] Dr. Stan Aceves CTA ABD/PELVIS WO W [...] PATRICK PIERRE Date: 2022-04-08 10:04 Normal [facility] Established Visit (Otolaryng ology)on 09-26-2018 Established [...] TAKE 1 TABLET BY MOUTH DAILY ATBEDTIME;Therapy: [id number] to Recorded Rx By: Zion; Dispense: 30 Days ; #:30; Refill: 0; ARIEL = N; Record; Last Updated By: Domenica Topete; 10/11/2017 1:16:16 PM Famotidine 20 MG Oral Tablet; TAKE 1 TABLET AT BEDTIME and TAKE 1 TABLET ASNEEDED during the day;Therapy: [id number] to Recorded Rx By: Zion; Dispense: 30 [...] 1:29:38 PM Meloxicam 7.5 MG Oral Tablet;Therapy: [id number] to Recorded Rx By: GIANNA ISABEL; Dispense: [...] Domenica Topete; 10/11/2017 1:16:16 PM [employer];Therapy: [id number] to Recorded Dispense: 30 Days ; #:1; Refill: 0; ARIEL = N; Record; Last Updated By: Rachel Contreras; 10/10/2013 3:23:22 PM Diagnoses/Problems Acoustic neuroma (225.1) (D33.3) Orders MRI IAC w/wo Contrast; Status:Hold For - Scheduling,Retrospect desmond By ProtocolAuthorization ; Requested for:15Sep2020; Perform:[facility]; Due:14Dec2020; Last Updated By:Carole Lanier; 09/26/2018 3:48:32 PM;Ordered; For:Acoustic neuroma; Ordered By:Shane Wilkerson;Radiologist to Determine Optimal Study : YWhat are the patient's signs and symptoms? : s/p CPA lesion resection Signatures Electronically signed by : Shane Wilkerson MD; Sep 26 2018 4:29PM EST (Author) Normal [employer] Vital Signs Date Time Vital Sign Value Performing Clinician Facility 06-26-2025 10:26-0400 Body temperature 98.4 [degF] La Pack PIPELINE GANG SUPERVISOR Work Phone: [facility] 06-26-2025 10:26-0400 Diastolic blood pressure 84 mm[Hg] La Pack [employer]ELINE G[employer] SUPERVISOR Work Phone: [facility] 06-26-2025 10:26-0400 Heart rate 85 /min La Ramone [employer]INE GANG SUPERVISOR Work Phone: [facility] 06-26-2025 10:26-0400 Respiratory rate 20 /min La Ramone [employer]ELINE GANG SUPERVISOR Work Phone: [facility] 06-26-2025 10:26-0400 SaO2% (BldA) [Mass fraction] 96 % La Pack [employer]ELINE GANG SUPERVISOR Work Phone: [facility] 06-26-2025 10:26-0400 Systolic blood pressure 126 mm[Hg] La Pack PIPELINE GANG SUPERVISOR Work Phone: [facility] 02-06-2025 10:08-0400 Body mass index (BMI) [Ratio] 25.05 kg/m2 Laevan Crossholz PIPELINE GANG SUPERVISOR Work Phone: [facility] 02-06-2025 10:08-0400 Body temperature 98.1 [degF] La Dalehholz [employer]ELINE GANG SUPERVISOR Work Phone: [facility] 02-06-2025 10:08-0400 Body weight 64.14 kg La Aichholz [employer]ELINE GANG SUPERVISOR Work Phone: [facility] 02-06-2025 10:08-0400 Diastolic blood pressure 72 mm[Hg] La Aichholz PIPELINE GANG SUPERVISOR Work Phone: [facility] 02-06-2025 10:08-0400 Heart rate 80 /min La Aichholz PIPELINE GANG SUPERVISOR Work Phone: [facility] 02-06-2025 10:08-0400 Respiratory rate 20 /min La Dalehholz PIPELINE GANG SUPERVISOR Work Phone: [facility] 02-06-2025 10:08-0400 SaO2% (BldA) [Mass fraction] 97 % La Dalehholz [employer]ELINE GANG SUPERVISOR Work Phone: [facility] Comment on above: with 3L of 02 on 02-06-2025 10:08-0400 Systolic blood pressure 124 mm[Hg] La Americaholz PIPELINE GANG SUPERVISOR Work Phone: [facility] 01-23-2025 11:44-0400 Body height 160 cm La Dalehholz [employer]ELINE GANG SUPERVISOR Work Phone: [facility] 01-23-2025 11:44-0400 Body mass index (BMI) [Ratio] 25.15 kg/m2 La Aichholz [employer] G[employer] SUPERVISOR Work Phone: [facility] 01-23-2025 11:44-0400 Body temperature 97.81 [degF] La Aichholz PIPELINE GANG SUPERVISOR Work Phone: [facility] 01-23-2025 11:44-0400 Body weight 64.41 kg La Pack PIPELINE GANG SUPERVISOR Work Phone: [facility] 01-23-2025 11:44-0400 Diastolic blood pressure 56 mm[Hg] La Martinezz PIPELINE GANG SUPERVISOR Work Phone: [facility] 01-23-2025 11:44-0400 Heart rate 98 /min Laevan Martinezz [employer]ELINE GANG SUPERVISOR Work Phone: [facility] 01-23-2025 11:44-0400 Respiratory rate 24 /min Laevan Pack [employer]ELINE GANG SUPERVISOR Work Phone: [facility] 01-23-2025 11:44-0400 SaO2% (BldA) [Mass fraction] 97 % La Pack PIPELINE GANG SUPERVISOR Work Phone: [facility] 01-23-2025 11:44-0400 Systolic blood pressure 110 mm[Hg] La Martinezz PIPELINE GANG SUPERVISOR Work Phone: [facility] 01-14-2025 09:30-0500 Body height 160 cm Ian Soares MD Work Phone: [facility] 01-14-2025 09:30-0500 Body mass index (BMI) [Ratio] 25.15 kg/m2 Ian Soares MD Work Phone: [facility] 01-14-2025 09:30-0500 Body temperature 96.6 [degF] Ian Soares MD Work Phone: [facility] 01-14-2025 09:30-0500 Body weight 64.41 kg Ian Soares MD Work Phone: [facility] 01-14-2025 09:30-0500 Diastolic blood pressure 66 mm[Hg] Ian Soares MD Work Phone: [facility] 01-14-2025 09:30-0500 Heart rate 85 /min Ian Soares MD Work Phone: [facility] 01-14-2025 09:30-0500 Respiratory rate 22 /min Ian Soares MD Work Phone: [facility] 01-14-2025 09:30-0500 SaO2% (BldA) [Mass fraction] 97 % Ian Soares MD Work Phone: [facility] 01-14-2025 09:30-0500 Systolic blood pressure 130 mm[Hg] Ian Soares MD Work Phone: [facility] 01-04-2025 09:09-0500 Body height 160.02 cm Daniel Cardoso PIPELINE GANG SUPERVISOR-C Work Phone: [facility] 01-04-2025 09:09-0500 Body mass index (BMI) [Ratio] 24.7 kg/m2 Daniel Cardoso PIPELINE GANG SUPERVISOR-C Work Phone: [facility] 01-04-2025 09:09-0500 Body weight 63.5 kg Daniel Cardoso PIP[employer]INE GANG SUPERVISOR-C Work Phone: [facility] 01-04-2025 09:09-0500 Diastolic blood pressure 56 mm[Hg] Daniel Cardoso PIPELINE GANG SUPERVISOR-C Work Phone: [facility] 01-04-2025 09:09-0500 Heart rate 82 /min Daniel Cardoso [employer] G[employer] SUPERVISOR-C Work Phone: [facility] 01-04-2025 09:09-0500 Inhaled oxygen flow rate 3 L/min Daniel Cardoso PIPELINE GANG SUPERVISOR-C Work Phone: [facility] 01-04-2025 09:09-0500 Respiratory rate 18 /min Daniel Cardoso PIPELINE GANG SUPERVISOR-C Work Phone: [facility] 01-04-2025 09:09-0500 SaO2% (BldA) [Mass fraction] 97 % Daniel Cardoso PIPELINE GANG SUPERVISOR-C Work Phone: [facility] 01-04-2025 09:09-0500 Systolic blood pressure 104 mm[Hg] Daniel Cardoso PIPELINE GANG SUPERVISOR-C Work Phone: [facility] 01-01-2025 13:20-0500 Body temperature 98.1 [degF] Stephen Furlong DO Work Phone: [facility] [employer] [facility] 01-01-2025 13:20-0500 Diastolic blood pressure 84 mm[Hg] Stephen Furlong DO Work Phone: [facility] [employer] [facility] 01-01-2025 13:20-0500 Heart rate 73 /min Stephen Furlong DO Work Phone: [facility] [employer] [facility] 01-01-2025 13:20-0500 Respiratory rate 16 /min Stephen Furlong DO Work Phone: [facility] [employer] [facility] 01-01-2025 13:20-0500 SaO2% (BldA) [Mass fraction] 96 % Stephen Furlong DO Work Phone: [facility] [employer] [facility] 01-01-2025 13:20-0500 Systolic blood pressure 129 mm[Hg] Stephen Furlong DO Work Phone: [facility] [employer] [facility] 12-28-2024 14:56-0500 Body temperature 97.2 [degF] Stephen [facility]long [facility] 12-28-2024 14:56-0500 Diastolic blood pressure 79 mm[Hg] Stephen Furlong DO Work Phone: [facility] [employer] [facility] 12-28-2024 14:56-0500 Heart rate 79 /min Stephen [facility]long [facility] 12-28-2024 14:56-0500 Respiratory rate 18 /min Stephen Furlong DO Work Phone: [facility] [employer] [facility] 12-28-2024 14:56-0500 SaO2% (BldA) [Mass fraction] 96 % Stephen Furlong DO Work Phone: [facility] [employer] [facility] 12-28-2024 14:56-0500 Systolic blood pressure 150 mm[Hg] Stephen Furlong DO Work Phone: [facility] 12-25-2024 17:23-0500 Body mass index (BMI) [Ratio] 24.03 kg/m2 Stephen Furlong DO Work Phone: [facility] [employer] [facility] 12-25-2024 17:23-0500 Body temperature 97.9 [degF] Stephen Furlong DO Work Phone: [facility] [employer] [facility] 12-25-2024 17:23-0500 Body weight 63.5 kg Stephen Furlong DO Work Phone: [facility] 12-25-2024 17:23-0500 Diastolic blood pressure 75 mm[Hg] Stephen Furlong DO Work Phone: [facility] 12-25-2024 17:23-0500 Heart rate 94 /min Stephen Furlong DO Work Phone: [facility] [employer] 12-25-2024 17:23-0500 Respiratory rate 18 /min Stephen Furlong DO Work Phone: [facility] 12-25-2024 17:23-0500 SaO2% (BldA) [Mass fraction] 93 % Stephen Furlong DO Work Phone: [facility] 12-25-2024 17:23-0500 Systolic blood pressure 124 mm[Hg] Stephen Furlong DO Work Phone: [facility] 12-18-2024 19:16-0500 Body height 162.6 cm Stephen Furlong DO Work Phone: [facility] 12-18-2024 19:16-0500 Body temperature 97.81 [degF] Stephen Furlong DO Work Phone: [facility] [facility] 12-18-2024 19:16-0500 Diastolic blood pressure 65 mm[Hg] Stephen Furlong DO Work Phone: [facility] 12-18-2024 19:16-0500 Heart rate 82 /min Stephen Furlong DO Work Phone: [facility] 12-18-2024 19:16-0500 Respiratory rate 18 /min Stephen Furlong DO Work Phone: [facility] [employer] 12-18-2024 19:16-0500 SaO2% (BldA) [Mass fraction] 92 % Stephen Furlong DO Work Phone: [facility] [employer] 12-18-2024 19:16-0500 Systolic blood pressure 112 mm[Hg] Stephen Furlong DO Work Phone: [facility] 12-14-2024 14:05-0500 Heart rate 91 /min Daniel Cardoso PIPELINE GANG SUPERVISOR-C Work Phone: [facility] 12-14-2024 14:05-0500 Respiratory rate 18 /min Daniel Cardoso PIPELINE GANG SUPERVISOR-C Work Phone: [facility] 12-14-2024 09:25-0500 Body temperature 97.5 [degF] Daniel Cardoso PIPELINE GANG SUPERVISOR-C Work Phone: [facility] 12-14-2024 09:25-0500 Diastolic blood pressure 57 mm[Hg] Daniel Cardoso PIPELINE GANG SUPERVISOR-C Work Phone: [facility] 12-14-2024 09:25-0500 Inhaled oxygen flow rate 4 L/min Daniel Cardoso PIPELINE GANG SUPERVISOR-C Work Phone: [facility] 12-14-2024 09:25-0500 SaO2% (BldA) [Mass fraction] 90 % Daniel Cardoso PIPELINE GANG SUPERVISOR-C Work Phone: [facility] 12-14-2024 09:25-0500 Systolic blood pressure 104 mm[Hg] Daniel Cardoso PIPELINE GANG SUPERVISOR-C Work Phone: [facility] 12-14-2024 06:00-0500 Body weight 65.3 kg Daniel Cardoso PIPELINE GANG SUPERVISOR-C Work Phone: [facility] 12-13-2024 17:05-0500 Body height 162.56 cm Daniel Cardoso PIPELINE GANG SUPERVISOR-C Work Phone: [facility] 12-11-2024 12:00-0500 Inhaled oxygen concentration 40 % Daniel Cardoso PIPELINE GANG SUPERVISOR-C Work Phone: [facility] 09-20-2024 09:43-0500 Body height 160 cm Daniel Cardoso PIPELINE GANG SUPERVISOR Work Phone: [facility] 09-20-2024 09:43-0500 Body mass index (BMI) [Ratio] 24.13 kg/m2 Daniel Cardoso PIPELINE GANG SUPERVISOR Work Phone: [facility] 09-20-2024 09:43-0500 Body temperature 96.69 [degF] Daniel Cardoso PIPELINE GANG SUPERVISOR Work Phone: [facility] 09-20-2024 09:43-0500 Body weight 61.78 kg Daniel Cardoso PIPELINE GANG SUPERVISOR Work Phone: [facility] 09-20-2024 09:43-0500 Diastolic blood pressure 74 mm[Hg] Daniel Cardoso PIPELINE GANG SUPERVISOR Work Phone: [facility] 09-20-2024 09:43-0500 Heart rate 85 /min Daniel Cardoso PIPELINE GANG SUPERVISOR Work Phone: [facility] 09-20-2024 09:43-0500 Respiratory rate 18 /min Daniel Cardoso PIPELINE GANG SUPERVISOR Work Phone: [facility] 09-20-2024 09:43-0500 SaO2% (BldA) [Mass fraction] 94 % Daniel Cardoso PIPELINE GANG SUPERVISOR Work Phone: [facility] 09-20-2024 09:43-0500 Systolic blood pressure 128 mm[Hg] Daniel Walker PIPELINE GANG SUPERVISOR Work Phone: [facility] Encounters Encounter Date Encounter Type Care Provider Facility Start: 07-10-2025 End: 07-10-2025 Clinisync Result Encounter La Ramone PIPELINE GANG SUPERVISOR Work Phone: [facility] External Department Unsolicited Start: 07-10-2025 End: 07-10-2025 Clinisync Result Encounter La Michellez PIPELINE GANG SUPERVISOR Work Phone: [facility] External Department Unsolicited Start: 06-26-2025 End: 06-26-2025 Bamboo flowsheet La Americaholz PIPELINE GANG SUPERVISOR Work Phone: [facility] Start: 06-26-2025 End: 06-26-2025 Bamboo flowsheet La Americaholz PIPELINE GANG SUPERVISOR Work Phone: [facility] Start: 06-26-2025 End: 06-26-2025 Office outpatient visit 25 minutes La Ramone PIPELINE GANG SUPERVISOR Work Phone: [facility] Comment on above: Edema of both lower legs (Primary Dx); Primary hypertension ; Chronic obstructive pulmonary disease, unspecified COPD type (HCC); Type 2 diabetes mellitus without complication, without long-term current use of insulin (HCC); Cigarette nicotine dependence without complication; Depression, unspecified ; Generalized anxiety disorder ; Cellulitis of left lower extremity Start: 06-26-2025 End: 06-26-2025 ambulatory LA AICHHOLZ Not Available Start: 06-13-2025 End: 06-13-2025 Orders Only La Michellez PIPELINE GANG SUPERVISOR Work Phone: [facility] Comment on above: Iron deficiency (Daisy columba Dx); Abnormal CBC Start: 06-07-2025 End: 06-09-2025 Refill Ian Soares MD Work Phone: [facility] Comment on above: Chronic obstructive pulmonary disease, unspecified COPD type (HCC) Start: 06-05-2025 End: 06-05-2025 Refill La Pack PIPELINE GANG SUPERVISOR Work Phone: [facility] Comment on above: Primary hypertension (Primary Dx); Hyperlipidemia, unspecified ; Vitamin D deficiency; Type 2 diabetes mellitus without complications ([facility]); Gastro-esophageal reflux disease without esophagitis; Depression, unspecified Start: 05-06-2025 End: 05-06-2025 Refill La Pack PIPELINE GANG SUPERVISOR Work Phone: [facility] Comment on above: Asthma with COPD (ch ronic obstructive pulmonary disease) ([facility]) Start: 04-16-2025 Patient encounter procedure La Pack NP Work Phone: [facility] Start: 04-01-2025 End: 04-01-2025 Refill La Pack PIPELINE GANG SUPERVISOR Work Phone: [facility] Comment on above: Depression, unspecif ied ([facility]) Osteoarthritis, unsp ecified osteoarthritis type, unspecified site (Primary Dx) Start: 03-25-2025 End: 03-25-2025 Clinisync Result Encounter La Pack PIPELINE GANG SUPERVISOR Work Phone: [facility] External Department Unsolicited Start: 03-25-2025 End: 03-25-2025 Clinisync Result Encounter La Pack PIPELINE GANG SUPERVISOR Work Phone: [facility] External Department Unsolicited Start: 03-25-2025 End: 03-25-2025 Orders Only Laevan Pack PIPELINE GANG SUPERVISOR Work Phone: [facility] Comment on above: Acquired hypothyroid ism (CMS/HCC) (Primary Dx) Start: 02-25-2025 End: 02-25-2025 Refill Ian Soares MD Work Phone: [facility] Comment on above: Asthma with COPD (ch ronic obstructive pulmonary disease) ([facility]); Chronic obstructive pulmonary disease, unspecified COPD type (CMS/HCC) Start: 02-21-2025 End: 02-21-2025 Clinisync Result Encounter Generic External Data Provider [facility] External Department Unsolicited Start: 02-21-2025 End: 02-21-2025 Clinisync Result Encounter Generic External Data Provider [facility] External Department Unsolicited Start: 02-20-2025 End: 02-20-2025 Refill La Aichholz PIPELINE GANG SUPERVISOR Work Phone: [facility] Comment on above: 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 Start: 02-19-2025 End: 02-19-2025 Orders Only La Aichholz PIPELINE GANG SUPERVISOR Work Phone: [facility] Comment on above: Elevated TSH Start: 02-18-2025 End: 02-18-2025 Clinisync Result Encounter La Aichholz PIPELINE GANG SUPERVISOR Work Phone: [facility] External Department Unsolicited Start: 02-18-2025 End: 02-18-2025 Clinisync Result Encounter La Aichholz PIPELINE GANG SUPERVISOR Work Phone: [facility] External Department Unsolicited Start: 02-06-2025 End: 02-06-2025 Office outpatient visit 25 minutes La Aichholz PIPELINE GANG SUPERVISOR Work Phone: [facility] Comment on above: Type 2 diabetes shanthi itus without complication, without long- term current use of insulin ([facility]) (Primary Dx); Chronic obstructive pulmonary disease, unspecified COPD type ([facility]); Primary hypertension ([facility]); Vitamin D deficiency; 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 loss; Cigarette nicotine dependence without complication; Recurrent major depressive disorder, in full remission ([facility]); Generalized anxiety disorder ([facility]); Screening mammogram, encounter for; Other hyperlipidemia ([facility]); Acute hypoxic respiratory failure ([facility]/HCC) Start: 02-06-2025 End: 02-06-2025 ambulatory LA AICHHOLZ Not Available Start: 01-23-2025 End: 01-23-2025 Office outpatient visit 25 minutes La Aichholz PIPELINE GANG SUPERVISOR Work Phone: [facility] Comment on above: Scalp laceration, se quela (Primary Dx); Cigarette nicotine dependence without complication; COPD exacerbation (CMS/HCC) Start: 01-23-2025 End: 01-23-2025 ambulatory LA PACK Not Available Start: 01-14-2025 End: 01-14-2025 Bamboo flowsheet Ian Soares MD Work Phone: [facility] Start: 01-14-2025 End: 01-14-2025 Bamboo flowsheet Ian Soares MD Work Phone: [facility] Start: 01-14-2025 End: 01-14-2025 Transitional care manage srvc 14 day discharge Ian Soares MD Work Phone: [facility] Comment on above: Influenza A (Primary [...] Start: 01-04-2025 End: 01-04-2025 ambulatory Daniel Cardoso PIPELINE GANG SUPERVISOR-C Work Phone: [facility] Work Phone: Start: 01-04-2025 End: 01-04-2025 Patient encounter procedure Daniel Cardoso PIPELINE GANG SUPERVISOR-C Work Phone: [facility] Work Phone: Start: 01-01-2025 End: 01-01-2025 ambulatory Stephen Macias DO Work Phone: [facility] Comment on above: Acute hypoxic respir atory failure (CMS-HCC) (Primary Dx); Aspiration pneumonia, unspecified aspiration pneumonia type, unspecified laterality, unspecified part of lung (CMS-HCC); Chronic obstructive pulmonary disease, unspecified COPD type ([facility]-HCC); Influenza A; Type 2 diabetes mellitus without complication, without long-term current use of insulin ([facility]); Other abnormalities of gait and mobility; Anxiety Start: 12-28-2024 End: 12-28-2024 ambulatory Stephen Macias DO Work Phone: [facility] Comment on above: Acute hypoxic respir atory failure ([facility]-HCC) (Primary Dx); Chronic obstructive pulmonary disease, unspecified COPD type ([facility]); Influenza A; Other abnormalities of gait and mobility Start: 12-25-2024 End: 01-02-2025 ambulatory Stephen Macias DO Work Phone: [facility] Comment on above: Chronic obstructive pulmonary disease, unspecified COPD type ([facility]-HCC) (Primary Dx); Influenza A; Other abnormalities of gait and mobility; Anxiety; Cigarette smoker Start: 12-18-2024 End: 12-24-2024 ambulatory Stephen Macias DO Work Phone: [facility] - [facility] Medicine Comment on above: Acute hypoxic respir atory failure ([facility]-HCC) (Primary Dx); Chronic obstructive pulmonary disease, unspecified COPD type ([facility]); Influenza A; Aspiration pneumonia, unspecified aspiration pneumonia type, unspecified laterality, unspecified part of lung ([facility]); Depression, unspecified depression type; Cigarette smoker; Type 2 diabetes mellitus without complication, without long-term current use of insulin ([facility]); Anxiety Start: 12-13-2024 Non-patient / Non-visit Margo Castorenapatrick PIPELINE GANG SUPERVISOR-C Work Phone: [facility] Work Phone: Start: 12-10-2024 Non-patient / Non-visit Margo Castorenapatrick PIPELINE GANG SUPERVISOR-C Work Phone: [facility] Work Phone: Start: 12-10-2024 Non-patient / Non-visit Margo Silvazpatrick PIPELINE GANG SUPERVISOR-C Work Phone: [facility] Work Phone: Start: 12-10-2024 Non-patient / Non-visit Margo saldivar Cardoso PIPELINE GANG SUPERVISOR-C Work Phone: [facility] Work Phone: Start: 12-09-2024 End: 12-14-2024 Evaluation and management of inpatient Daniel Cardoso PIPELINE GANG SUPERVISOR-C Work Phone: [facility] Work Phone: Start: 12-09-2024 End: 12-09-2024 ambulatory UNKNOWN PROVIDER Facility:[facility] Start: 12-09-2024 End: 12-11-2024 Clinisync Result [...] with COPD (ch ronic obstructive pulmonary disease) ([facility]) Start: 11-12-2024 End: 11-14-2024 Refill Daniel Cardoso PIPELINE GANG SUPERVISOR Work Phone: [facility] Comment on above: 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 Start: 10-22-2024 End: 10-22-2024 Refill Daniel Cardoso PIPELINE GANG SUPERVISOR Work Phone: [facility] Comment on above: Gastro-esophageal re flux disease without esophagitis Start: 10-22-2024 End: 10-22-2024 Refill Daniel Cardoso PIPELINE GANG SUPERVISOR Work Phone: [facility] Comment on above: Depression, unspecif ied ([facility]) Start: 09-20-2024 End: 09-20-2024 Bamboo flowsheet Daniel Cardoso PIPELINE GANG SUPERVISOR Work Phone: [facility] Start: 09-20-2024 End: 09-20-2024 Bamboo flowsheet Daniel Cardoso PIPELINE GANG SUPERVISOR Work Phone: [facility] Start: 09-20-2024 End: 09-20-2024 Office outpatient visit 15 minutes Daniel Cardoso PIPELINE GANG SUPERVISOR Work Phone: [facility] Comment on above: Primary hypertension ([facility]) (Primary Dx); Type 2 diabetes mellitus without complication, without long-term current use of insulin ([facility]); Other hyperlipidemia ([facility]); Asthma with COPD (chronic obstructive pulmonary disease) ([facility]); Non-recurrent acute serous otitis media of left ear Start: 09-20-2024 End: 09-20-2024 ambulatory DANIEL MCCOMRICKTRICK Not Available Start: 09-11-2024 End: 09-11-2024 Refill Daniel Cardoso PIPELINE GANG SUPERVISOR Work Phone: [facility] Comment on above: Type 2 diabetes shanthi itus without complications ([facility]) Hyperlipidemia, unsp ecified ([facility]) Other bursitis of el bow, left elbow Start: 09-03-2024 End: 09-03-2024 Refill Ailyn Eng [facility] Comment on above: Asthma with COPD (ch ronic obstructive pulmonary disease) ([facility]) Start: 08-27-2024 End: 08-27-2024 Refill Daniel Cardoso PIPELINE GANG SUPERVISOR Work Phone: [facility] Comment on above: Asthma with COPD (ch ronic obstructive pulmonary disease) ([facility]) Start: 08-01-2024 End: 08-02-2024 Refill Arturo Chanel MA [facility] Comment on above: Hyperlipidemia, unsp ecified ([facility]); Other bursitis of elbow, left elbow; Depression, unspecified ([facility]); Type 2 diabetes mellitus without complications ([facility]) Start: 07-25-2024 End: 07-26-2024 Refill Arturo Chanel MA [facility] Comment on above: Other bursitis of el bow, left elbow Start: 07-23-2024 End: 07-23-2024 Refill Daniel Cardoso PIPELINE GANG SUPERVISOR Work Phone: [facility] Comment on above: Type 2 diabetes shanthi itus without complications ([facility]); Hyperlipidemia, unspecified ([facility]) Start: 07-07-2024 End: 07-07-2024 Chart abstracting Daniel Cardoso PIPELINE GANG SUPERVISOR Work Phone: [facility] Comment on above: 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 (Primary Dx) Start: 12-15-2023 End: 12-16-2023 ambulatory Zamzam Wheeler [place] Start: 12-15-2023 End: 12-15-2023 Patient encounter procedure Zamzamsnehal Wheeler [facility] Start: 11-30-2023 End: 12-01-2023 ambulatory Zamzamsnehal Wheeler [place] Start: 10-28-2023 End: 11-10-2023 Pre-admission assessment Zamzam Wheeler [facility] Start: 01-05-2023 End: 01-06-[address] GIANNA ISABEL Facility:[facility] Start: 04-26-2022 End: 04-27-[address] GIANNA ISABEL Facility:[facility] Start: 04-08-2022 End: 04-09-[address] GIANNA ISABEL Facility:[facility] Procedures Date Procedure Procedure Detail Performing Clinician Start: 07-10-2025 ALL CBC WITH AUTO DIFF La Pack PIPELINE GANG SUPERVISOR Work Phone: Start: 03-25-2025 ALL THYROID STIM HORMONE La Pack PIPELINE GANG SUPERVISOR Work Phone: Start: 03-25-2025 ALL THYROXINE (T4) FREE La Pack PIPELINE GANG SUPERVISOR Work Phone: Start: 02-21-2025 NM ORLY PERF SPECT REST STR Generic External Data Provider Start: 02-18-2025 MM TOMOSYNTHESIS SCR EENING BI La Pack PIPELINE GANG SUPERVISOR Work Phone: Start: 02-18-2025 ALL CBC WITH AUTO DIFF La Pack PIPELINE GANG SUPERVISOR Work Phone: Start: 02-18-2025 Mammography La cruz PIPELINE GANG SUPERVISOR Work Phone: Start: 12-11-2024 Plain chest X-ray Taylor any Cardoso PIPELINE GANG SUPERVISOR-C Work Phone: Start: 12-10-2024 Plain chest X-ray Taylor any Cardoso PIPELINE GANG SUPERVISOR-C Work Phone: Start: 12-09-2024 Plain X-ray abdomen Katy ttany Cardoso PIPELINE GANG SUPERVISOR-C Work Phone: Start: 12-09-2024 Plain chest X-ray Taylor any Cardoso PIPELINE GANG SUPERVISOR-C Work Phone: Start: 12-09-2024 BLOOD CULTURE 2 Generic External Data Provider Start: 12-09-2024 Aerobic microbial culture Daniel Cardoso PIPELINE GANG SUPERVISOR-C Work Phone: Start: 12-09-2024 Bacteria identified in Blood by Culture Daniel Cardoso PIPELINE GANG SUPERVISOR-C Work Phone: Start: 12-09-2024 Gram stain microscopy B florencetany Cardoso PIPELINE GANG SUPERVISOR-C Work Phone: Start: 09-20-2024 Hemoglobin glycosyla brendan a1c Daniel Cardoso PIPELINE GANG SUPERVISOR Work Phone: Start: 01-16-2024 Mammography Daniel F itzpatrick PIPELINE GANG SUPERVISOR Work Phone: Plan of Treatment Date Care Activity Detail Author Start: 01-30-2027 Glaucoma screening Diabetes: R etinopathy Screening [facility] Start: 05-08-2026 Medicare Annual Well ness (AWV) Medicare Annual Wellness (AWV) [facility] Start: 02-18-2026 Screening for malign ant neoplasm of breast Mammogram [facility] Start: 02-18-2026 Urine screening for protein Diabetes: Urine Protein Screening [facility] Start: 11-14-2025 Screening for malign ant neoplasm of colon [facility] Start: 08-20-2025 Hemoglobin A1c measurement Diabetes: Hemoglobin A1C [facility] Start: 07-31-2025 End: 07-31-2025 Patient encounter procedure 07/31/2025 11:00 AM EDT Office Visit [facility] [address] [place] [id number] La Pack NP [address] [place] [id number] [facility] Start: 07-15-2025 Influenza vaccination [facility] Start: 06-26-2025 End: 06-26-2026 Basic metabolic 1998 panel - Serum or Plasma Basic metabolic panel Lab Routine Primary hypertension Type 2 diabetes mellitus without complication, without long-term current use of insulin (HCC) Edema of both lower legs Expected: 06/26/2025 (Approximate), Expires: 06/26/2026 [facility] Work Phone: Comment on above: Expected: 06/26/2025 (Approximate), Expires: 06/26/2026 Start: 06-26-2025 End: 06-26-2025 Patient encounter procedure [facility] Comment on above: Primary hypertension (Primary Dx); Chronic obstructive pulmonary disease, unspecified COPD type (HCC); Type 2 diabetes mellitus without complication, without long-term current use of insulin (HCC); Cigarette nicotine dependence without complication Start: 05-13-2025 Influenza vaccination Influenza Vacc ine (#1) [facility] Comment on above: Postponed from 07/15 (Patient Refused) Start: 05-07-2025 End: 05-07-2025 Patient encounter procedure 05/07/2025 10:00 AM EDT Office Visit [facility] [address] [place] [address] La Pack, PIPELINE GANG SUPERVISOR [address] [place] [address] [facility] Start: 04-16-2025 End: 04-16-2025 Patient encounter procedure [facility] Start: 03-25-2025 End: 03-25-2026 Thyrotropin [Units/volume] in Serum or Plasma TSH Lab Routine Acquired hypothyroidism (CMS/HCC) Expected: 03/25/2025 (Approximate), Expires: 03/25/2026 [facility] Work Phone: Comment on above: Expected: 03/25/2025 (Approximate), Expires: 03/25/2026 Start: 03-25-2025 End: 03-25-2026 Thyroxine (T4) free [Mass/volume] in Serum or Plasma T4, free Lab Routine Acquired hypothyroidism (CMS/HCC) Expected: 03/25/2025 (Approximate), Expires: 03/25/2026 [facility] Comment on above: Expected: 03/25/2025 (Approximate), Expires: 03/25/2026 Start: 03-22-2025 End: 02-20-2026 CBC W Auto Differential panel - Blood CBC and differential Lab Routine 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 loss Expected: 03/22/2025 (Approximate), Expires: 02/20/2026 [facility] Comment on above: Expected: 03/22/2025 (Approximate), Expires: 02/20/2026 Start: 03-22-2025 End: 02-20-2026 Iron and Iron binding capacity panel - Serum or Plasma Iron level Lab Routine 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 loss Expected: 03/22/2025 (Approximate), Expires: 02/20/2026 [facility] Work Phone: Comment on above: Expected: 03/22/2025 (Approximate), Expires: 02/20/2026 Start: 03-21-2025 End: 02-19-2026 Thyrotropin [Units/volume] in Serum or Plasma TSH Lab Routine Elevated TSH Expected: 03/21/2025 (Approximate), Expires: 02/19/2026 [facility] Work Phone: Comment on above: Expected: 03/21/2025 (Approximate), Expires: 02/19/2026 Start: 03-21-2025 End: 02-19-2026 Thyroxine (T4) free [Mass/volume] in Serum or Plasma T4, free Lab Routine Elevated TSH Expected: 03/21/2025 (Approximate), Expires: 02/19/2026 [facility] Comment on above: Expected: 03/21/2025 (Approximate), Expires: 02/19/2026 Start: 03-20-2025 Hemoglobin A1c measurement Diabetes: Hemoglobin A1C [facility] Start: 03-14-2025 Glaucoma screening Diabetes: R etinopathy Screening [facility] Start: 03-08-2025 Medicare Annual Well ness (AWV) Medicare Annual Wellness (AWV) [facility] Start: 02-06-2025 End: 02-06-2026 25-hydroxyvitamin D3 [Mass/volume] in Serum or Plasma Vitamin D 25 hydroxy Lab Routine Vitamin D deficiency Expected: 02/06/2025 (Approximate), Expires: 02/06/2026 [facility] Comment on above: Expected: 02/06/2025 (Approximate), Expires: 02/06/2026 Start: 02-06-2025 End: 02-06-2026 CBC W Auto Differential panel - Blood CBC and differential Lab Routine 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 loss Expected: 02/06/2025 (Approximate), Expires: 02/06/2026 [facility] Comment on above: Expected: 02/06/2025 (Approximate), Expires: 02/06/2026 Start: 02-06-2025 End: 02-06-2026 Comprehensive metabolic 2000 panel - Serum or Plasma Comprehensive metabolic panel Lab Routine Primary hypertension (CMS/HCC) Type 2 diabetes mellitus without complication, without long-term current use of insulin (CMS/HCC) Expected: 02/06/2025 (Approximate), Expires: 02/06/2026 [facility] Comment on above: Expected: 02/06/2025 (Approximate), Expires: 02/06/2026 Start: 02-06-2025 End: 02-06-2026 Ferritin [Mass/volume] in Serum or Plasma Ferritin Lab Routine 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 loss Expected: 02/06/2025 (Approximate), Expires: 02/06/2026 [facility] Comment on above: Expected: 02/06/2025 (Approximate), Expires: 02/06/2026 Start: 02-06-2025 End: 02-06-2026 Hemoglobin A1c/Hemoglobin.total in Blood Hemoglobin A1c Lab Routine Type 2 diabetes mellitus without complication, without long-term current use of insulin ([facility]/HCC) Expected: 02/06/2025 (Approximate), Expires: 02/06/2026 [facility] Comment on above: Expected: 02/06/2025 (Approximate), Expires: 02/06/2026 Start: 02-06-2025 End: 02-06-2026 Iron + transferrin + TIBC Iron + transferrin + TIBC Lab Routine 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 loss Expected: 02/06/2025 (Approximate), Expires: 02/06/2026 [facility] Comment on above: Expected: 02/06/2025 (Approximate), Expires: 02/06/2026 Start: 02-06-2025 End: 02-06-2026 Lipid 1996 panel - Serum or Plasma Lipid panel Lab Routine Other hyperlipidemia ([facility]) Expected: 02/06/2025 (Approximate), Expires: 02/06/2026 [facility] Comment on above: Expected: 02/06/2025 (Approximate), Expires: 02/06/2026 Start: 02-06-2025 End: 04-08-2026 MG Breast - bilateral Screening Bilateral screening mammogram Imaging Routine Screening mammogram, encounter for Expected: 02/06/2025 (Approximate), Expires: 04/08/2026 [facility] Work Phone: Comment on above: Expected: 02/06/2025 (Approximate), Expires: 04/08/2026 Start: 02-06-2025 End: 02-06-2026 Microalbumin/Creatinine panel in random Urine Microalbumin / creatinine, urine ratio Lab Routine Primary hypertension ([facility]) Type 2 diabetes mellitus without complication, without long-term current use of insulin (CMS/HCC) Expected: 02/06/2025 (Approximate), Expires: 02/06/2026 [facility] Comment on above: Expected: 02/06/2025 (Approximate), Expires: 02/06/2026 Start: 02-06-2025 End: 02-06-2026 Thyrotropin [Units/volume] in Serum or Plasma TSH Lab Routine Generalized anxiety disorder ([facility]) Expected: 02/06/2025 (Approximate), Expires: 02/06/2026 [facility] Comment on above: Expected: 02/06/2025 (Approximate), Expires: 02/06/2026 Start: 02-06-2025 End: 02-06-2026 Urinalysis complete panel - Urine Urinalysis with reflex microscopic (clean catch) Lab Routine Primary hypertension ([facility]) Type 2 diabetes mellitus without complication, without long-term current use of insulin ([facility]) Expected: 02/06/2025 (Approximate), Expires: 02/06/2026 [facility] Comment on above: Expected: 02/06/2025 (Approximate), Expires: 02/06/2026 Start: 02-06-2025 End: 02-06-2025 Patient encounter procedure 02/06/2025 10:00 AM EDT Office Visit [facility] [address] [place] [phone] La Pack NP [address] [place] [address] [facility] Start: 01-31-2025 End: 01-31-2025 Patient encounter procedure 01/31/2025 11:00 AM EDT Office Visit [facility]IA MIRANDA [address] [place] [phone] Tashia Polk PA [address] [place] [address] [facility] Start: 01-15-2025 Screening for malign ant neoplasm of breast Mammogram [facility] Start: 01-14-2025 End: 01-14-2025 Patient encounter procedure 01/14/2025 9:30 AM EST Office Visit [facility] [address] [place] [phone] Ian Soares MD [address] [place] [address] Arrived [facility] Comment on above: Arrived Start: 01-11-2025 Urine screening for protein Diabetes: Urine Protein Screening [facility] Start: 12-20-2024 End: 12-20-2024 Patient encounter procedure 12/20/2024 10:00 AM EST Office Visit [facility] [address] [place] [phone] Daniel Cardoso NP [address] [place] [phone] [facility] Start: 12-14-2024 [facility] Start: 12-13-2024 Administration of prophylactic treatment [facility] Start: 12-13-2024 Referral to rehabilitation physician [facility] Start: 12-09-2024 [facility] Start: 12-09-2024 [facility] Start: 12-09-2024 Consultation [facility] Start: 12-09-2024 Hospital admission [facility] Start: 12-09-2024 Bacteria identified in Blood by Culture Blood Culture [facility] Start: 12-09-2024 Respiratory Ventilat ion, 24-96 Consecutive Hours Respiratory Ventilation, 24-96 Consecutive Hours [facility] Start: 11-27-2024 Pneumococcal Vaccine : 65+ Years (1 of 2 - PCV) Pneumococcal Vaccine: 65+ Years (1 of 2 - PCV) [facility] Comment on above: Postponed from 04/21 (Other Patient Reasons) Start: 10-10-2024 End: 10-10-2024 Patient encounter procedure 10/10/2024 9:20 AM EST Office Visit [facility] [place] [address] [place] [phone] Tashia Polk PA [address] [place] [address] [facility] [place] [facility] Start: 09-20-2024 End: 09-20-2024 Patient encounter procedure [facility] Comment on above: Arrived Start: 07-18-2024 End: 07-18-2024 Patient encounter procedure [facility] [place] [facility] Start: 07-15-2024 Influenza vaccination N [facility] Start: 01-13-2024 Hemoglobin A1c measurement Diabetes: Hemoglobin A1C [facility] Start: 2018 Fall Risk Screening Fall Risk Screen ing [facility] Start: 2003 Administration of varicella zoster vaccine Zoster (Shingles) Vaccine (1 of 2) [facility] Start: 1972 DTaP,Tdap and Td Vaccines (1 - Tdap) DTaP,Tdap and Td Vaccines (1 - Tdap) [facility] Start: 1971 Adult BMI Screening Adult BMI Screen ing [facility] Start: 1971 Diabetic foot examination Diabetic Foot Exam [facility] Start: 1965 Depression Screening Depression Scre ening [facility] Start: 1965 Tobacco Screening Tobacco Screening [facility] Start: 1959 Pneumococcal Vaccine : 65+ Years (1 of 2 - PCV) Pneumococcal Vaccine: 65+ Years (1 of 2 - PCV) [facility] Start: 1953 Glaucoma screening Diabetic Op hthalmology Exam [facility] Start: 1953 Screening for malign ant neoplasm of colon [facility] Start: 1953 Statin Use: Diabetic Statin Use: Claudine betic [facility] BLOOD CULTURE 2 BLOOD CULTURE 2 Lab Routine 12/09/2024 4:21 PM EST [facility] Patient referral [facility] Work Phone: Immunizations Immunization Date Immunization Notes Care Provider Fa cility 12-31-2024 Pneumococcal Conjuga te PCV 20 La Pack [employer] Work Phone: [facility] 12-27-2024 SARS-COV-2 (COVID-19 ) vaccine, mRNA, spike protein, LNP, bivalent, preservative free, 30 mcg/0.3 mL dose, carolyn-sucrose formulation Laevan Crossjlz [employer] Work Phone: [facility] 08-14-2023 Influenza, High-dose Seasonal, Quadrivalent, Preservative Free Daniel Cardoso [employer] Work Phone: [facility] 08-14-2023 influenza virus vaccine, unspecified formulation Daniel Cardoso [employer] Work Phone: [facility] Payers Date Payer Category Payer Medicare [id number] 2024 Self-pay 2023 Medicare HMO ANTHEM MEDICARE Member Subscriber Plan / Payer (Effective 2023-Present) Name: Julian Montaño Relation to Subscriber: Self Name: Julian Montaño Payer ID: [id number] ([facility]) Group ID: [id number] Type: Not on file Address: [address] [place] [phone] [id number] 2021 Medicare (Managed Care) [facility] [id number] 2021 Unknown [id number] 2016 Medicare [id number] 1959 Unknown [id number] 1953 Unknown [id number]. 593 1953 Unknown [id number] [id number]. 593 1953 Unknown [id number] [id number]. 593 1953 Unknown [id number] [id number]. 727 1953 Unknown [id number] [id number]. 727 1953 Unknown [id number] [id number]. 732 1953 Unknown [id number] [id number]. 1259 1953 Unknown [id number] [id number]. 1259 1953 Unknown [id number] [id number]. 1259 1953 Unknown [id number] [id number]. 1259 1953 Unknown [id number] [id number]. 1259 Medicaid Medicaid [id number] Unknown [id number] 531 Social History Date Type Detail Facility Tobacco smoking status [facility] Start: 03-08-2024 End: 06-21-2024 Sex Assigned At Female Dustin Gupta [facility] Start: 06-21-2024 Tobacco smoking stat us AKIS Smokes tobacco daily [facility] History of tobacco use Cigarette Smoker [facility] History of tobacco use Passive smoker [facility] Start: 11-29-2019 End: 06-21-2024 Tobacco use and exposure Smokeless tobacco non-user [facility] Start: 06-21-2024 End: 06-26-2025 Alcoholic beverage intake Lifetime non-drinker (finding) [facility] Start: 03-08-2024 End: 06-21-2024 History of Social function [facility] Start: 10-17-2023 Alcohol Comment Caffeine: 2-3 cups per day [facility] Start: 1955 Sex assigned at Not on file [facility] Start: 12-13-2024 [facility] if ever smoked [facility] Start: 12-14-2024 End: 01-04-2025 Sex Female (finding) [facility] Start: 1955 Sex Assigned At Female [facility] Start: 11-29-2019 End: 01-04-2025 Tobacco smoking status NHIS Ex-smoker [facility] History of tobacco use Current smoker [facility] Start: 02-19-2021 Alcoholic beverage intake Current non-drinker of alcohol (finding) [facility] Medical Equipment Procedure Code Equipment Code Equipment Origin al Text Equipment Identifier Dates [id number] Start: 11-21-2023 End: 11-20-2024 1 each in the morning. [id number] Start: 11-21-2023 End: 11-20-2024 1 each by In Vit ro route Daily [id number] Start: 01-30-2025 End: 01-30-2026 Goals Date Patient Goal Desired Activity /State Functional Status Date Assessment Result Facility 12-14-2024 Functional status Patient at Baseline [facility] Work Phone: Mental Status Date Assessment Result Facility 12-14-2024 Cognitive function Cognitive Sta tus Patient at Baseline [facility] Work Phone: Clinical Notes 09-11-2024 to 06-26-2025 La Pack NP - 06/26/2025 11:11 AM Paradise Pack NP - 06/26/2025 11:11 AM Paradise Pack NP - 06/26/2025 11:10 AM EDMARIAJOSE HERNANDEZ - 06/26/2025 10:30 AM EDTPatient Instructions Note Date & Type Note Facility 06-26-2025 History of Presen t illness Narrative Associated Problem(s): Generalized anxiety disorder Will increase dose of sertraline to 100mg Add buspar Fu in 4 weeks Associated Problem(s): Cellulitis Secondary to leg swelling, will cover w atb d/t left leg Denies fever or chills Associated Problem(s): Edema of both lower legs Lalita wrap applied to both legs and cannot tolerate compression stockings Will add lasix Check labs 07/06/25 Limit sodium Both legs: Swelling, red, leaking (inner left [...] was 163 Pt usually avgs around 140-150s Images from the original note were not included. Julian Montaño is a 70 y.o. female presents with [...] dizziness, nausea, palpitations or suicidal ideas. Symptoms occur most days. The severity of symptoms is moderate. [...] cholecalciferol (VITAMIN D-3) 50 mcg, Oral, Daily Tulcsgmbvcc-Oibdhxtoi-Rxuxly (Trelegy Ellipta) 200-62.5-25 MCG/ACT aerosol powder 1 Inhalation, Inhalation, Daily Dlkollzlzik-Ktojgnrpd-Lulcyf (Trelegy Ellipta) 200-62.5-25 MCG/ACT aerosol powder 1 [...] Size: Adult long) Pulse 85 Temp 98.4 F (Temporal) Resp 20 SpO2 96% OB Status [...] complication, without long-term current use of insulin ([facility]) Check blood sugars daily, notify if <70 [...] metabolic panel COPD (chronic obstructive pulmonary disease) ([facility]) Wears oxygen at home Current meds: albuterol, trelegy Primary hypertension - Primary Please check blood pressure daily and record DASH diet Limit caffeine Take medication as directed Contact office if chest pain, pressure, dizziness, shortness of breath, swelling legs Recommend slow position changes Current meds: losartan Relevant Orders Basic metabolic panel Cigarette nicotine dependence without complication Has not smoked since [place] Generalized anxiety disorder Will increase dose of sertraline to 100mg Add buspar Fu in 4 weeks Relevant Medications sertraline (Zoloft) 100 MG tablet busPIRone (Buspar) 5 MG tablet Edema of both lower legs Lalita wrap applied to both legs and cannot [...] Relevant Medications sertraline (Zoloft) 100 MG tablet Associated Problem(s): Cigarette nicotine dependence without complication Has not smoked since [place] Associated Problem(s): Acquired hypothyroidism No current meds Initial test TSH was elevated in 03/08: 4.718, recheck 1 month later 2.663, free T 4 WNL as well Associated Problem(s): Type 2 diabetes mellitus without complication, without long-term current use of insulin (HCC) Check blood sugars daily, notify [...] arb, metformin, statin A1c: 6.0% on 02/18/25 Associated Problem(s): Primary hypertension Please check blood pressure daily and record DASH diet Limit caffeine Take medication as directed Contact office if chest pain, pressure, dizziness, shortness of breath, swelling legs Recommend slow position changes Current meds: losartan Associated Problem(s): COPD (chronic obstructive pulmonary disease) ([facility]) Wears oxygen at home Current meds: albuterol, trelegy documented in this encounter [facility] 06-26-2025 Instructions La Pack NP - 06/26/2025 10:30 AM EDT For your anxiety: we are going to increase sertraline to 100mg pill once a day. Also adding buspar 5mg twice a day for anxiety Add antibiotic for leg cephalexin twice for 10 days, and water pill for swelling leg lasix 20mg daily Check blood work in 10 days documented in this encounter [facility] 02-06-2025 History of Presen t illness Narrative [...] compliance problems. There is no history of CAD/MA. Diabetes She presents for her follow-up diabetic [...] being taken. She does not see a dog licenser.Eye exam is current. Depression Visit Type: follow-up [...] breakfast, Do not crush, chew, or split. Nysuhtifewb-Urtkriwhz-Zqmhfk (Trelegy Ellipta) 200-62.5-25 MCG/ACT aerosol powder 1 [...] List Items Addressed This Visit Other hyperlipidemia ([facility]) On statin therapy Check labs yearly and prn dose changes Relevant Orders Lipid panel 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 loss Takes supplement daily Check labs Relevant Orders CBC and differential Iron + transferrin + TIBC Ferritin Type 2 diabetes mellitus without complication, without long-term current use of insulin ([facility]) Check blood sugars daily, notify if <70 [...] Recurrent major depressive disorder, in full remission ([facility]) Takes sertraline daily Screening mammogram, encounter for Relevant Orders Bilateral screening mammogram COPD (chronic obstructive pulmonary disease) ([facility]) - Primary Wears oxygen at home Current meds: albuterol, trelegy Primary hypertension ([facility]) Please check blood pressure daily and record [...] D 25 hydroxy Acute hypoxic respiratory failure ([facility]) Wears oxygen at home Inhalers: trelegy, albuterol Cigarette nicotine dependence without complication Has not smoked since [place] Generalized anxiety disorder ([facility]) Takes ativan prn, and sertraline Relevant Orders TSH Associated Problem(s): Other hyperlipidemia ([facility]) On statin therapy Check labs yearly and prn dose changes Associated Problem(s): Generalized anxiety disorder ([facility]) Takes ativan prn, and sertraline Associated Problem(s): Recurrent major depressive disorder, in full remission ([facility]) Takes sertraline daily Associated Problem(s): Cigarette nicotine dependence without complication Has not smoked since [place] Associated Problem(s): 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 loss Takes supplement daily Check labs Associated Problem(s): Vitamin D deficiency Taking supplement 2,000 international units daily Check labs Associated Problem(s): Type 2 diabetes mellitus without complication, without long-term current use of insulin ([facility]) Check blood sugars daily, notify if <70 [...] arb, metformin, statin Associated Problem(s): Primary hypertension ([facility]) Please check blood pressure daily and record DASH diet Limit caffeine Take medication as directed Contact office if chest pain, pressure, dizziness, shortness of breath, swelling legs Recommend slow position changes Current meds: losartan Associated Problem(s): COPD (chronic obstructive pulmonary disease) ([facility]) Wears oxygen at home Current meds: albuterol, trelegy documented in this encounter [facility] 02-06-2025 Instructions La Pack NP - 02/06/2025 10:00 AM EDT Get labs completed fasting 8 hours Mammogram we will fax order to [facility], if you dont hear from them in 2 weeks, call [phone] Great job on quitting smoking documented in this encounter [facility] 01-23-2025 History of Presen t illness [...] of Suture / Staple Removal (head) HPI: [facility] ER on 01/14/25 for scalp lac, s/p [...] breakfast, Do not crush, chew, or split. Rwofwecbshe-Yfieokput-Kerifs (Trelegy Ellipta) 200-62.5-25 MCG/ACT aerosol powder 1 [...] of the risks of continued smoking: stroke, MA, all forms of cancer, lung disease, and [...] of the risks of continued smoking: stroke, MA, all forms of cancer, lung disease, and . Options for quitting smoking include: cold turkey, hypnosis, acupuncture, nicotine replacement meds (gum, lozenges, and patches), Buproprion, and Varenicline. At this time pt is encouraged to evaluate their goals for wanting to quit smoking, and reach out to provider when ready to start this process documented in this encounter [facility] 01-23-2025 Instructions La Pack NP - 01/23/2025 11:30 AM EDT May wash hair, Take augmentin atb as directed, fluids, encourage cough and deep breathing If worsening breathing go to ER documented in this encounter [facility] 01-14-2025 History of Presen t illness Narrative Associated Problem(s): Type 2 diabetes mellitus without complication, without long-term current use of insulin ([facility]) BS controlled and monitor. Stick to ADA diet and limit carbs. Associated Problem(s): Primary hypertension ([facility]/H[facility]) BP controlled and monitor PRN. Associated Problem(s): Influenza A Recent infection but improved and monitor. Associated Problem(s): COPD (chronic obstructive pulmonary disease) ([facility]) Breathing stable and continue inhalers. Use albuterol nebulized PRN. Script for new nebulizer machine to patient. Associated Problem(s): Acute hypoxic respiratory failure ([facility]) SpO2 stable and wean oxygen as tolerated. Images from the original note were not included. Subjective Patient ID: Julian Montaño is a 69 y.o. female who presents for Follow-up (Hospital f/u), Sore Throat, and Earache (Right ear). Follow up from hospital and SNF. Patient found unresponsive at home and intubated by EMS. Brought to [facility] then transferred to [facility]. Admitted 12/09-12/14 and treated for [...] improved and monitor. documented in this encounter [facility] 01-01-2025 History of Presen t illness Narrative Patient Name: Julian Montaño Date of : 1955 Date of Service: 01/01/2025 [place] [facility] [place] of Visit: Skilled Visit Subjective Julian Montaño is a 69 y.o. female seen today at [facility] facility for therapy visit. Julian is participating [...] Exam Vitals reviewed. Exam conducted with a transplant nurse practitioner present (Priyank Ward MS3). Constitutional: General: She [...] / Plan 1. Acute hypoxic respiratory failure ([facility]) 2. Aspiration pneumonia, unspecified aspiration pneumonia type, unspecified laterality, unspecified part of lung ([facility]) 3. Chronic obstructive pulmonary disease, unspecified COPD type ([facility]) 4. Influenza A 5. Type 2 diabetes mellitus without complication, without long-term current use of insulin ([facility]) 6. Other abnormalities of gait and mobility [...] Stephen Macias DO documented in this encounter [facility] 12-28-2024 History of Presen t illness Narrative Patient Name: Julian Montaño Date of : 1955 Date of Service: 12/28/2024 [place] [facility] [place] of Visit: Skilled Visit Subjective Julian Montaño is a 69 y.o. female seen today at [facility]dc facility for therapy visit. Julian is in therapy. She is slowly improving. Staff is needing a [id number]-hf-[id number] visit to document her oxygen in wheelchair [...] Exam Vitals reviewed. Exam conducted with a transplant nurse practitioner present (Priyank Ward MS3). Constitutional: General: She [...] Stephen Macias DO documented in this encounter [facility] 12-25-2024 History of Presen t illness Narrative Patient Name: Julian Montaño Date of : 1955 Date of Service: 12/25/2024 [place] [facility] [place] of Visit: Skilled Visit Subjective Julian Montaño is a 69 y.o. female seen today at [facility]dc facility for therapy visit. Julian is participating [...] Exam Vitals reviewed. Exam conducted with a transplant nurse practitioner present (Priyank Lorenzolaney MS3). Constitutional: General: She is not in [...] Stephen Macias DO documented in this encounter [facility] [employer] 12-18-2024 History of Presen t illness Narrative Patient Name: Julian Montaño Date of : 1955 Date of Service: 12/18/2024 [place] [facility] [place] of Visit: Admission H&P Subjective Julian Montaño is a 69 y.o. female seen today at fdc facility for admission H&PLakeisha Gardiner presents to [facility] for [facility] following hospitalization at [facility]. She was diagnosed with acute hypoxic [...] Past Medical History: Diagnosis Date Acoustic neuroma ([facility]) Anemia Asymmetric SNHL (sensorineural hearing loss) Benign neoplasm of cranial nerve ([facility]) Bilateral cataracts Chronic bronchitis ([facility]) Chronic cough Constipation COPD (chronic obstructive pulmonary disease) ([facility] Depression Diabetes mellitus ([facility]) history of GERD (gastroesophageal reflux disease) Hemorrhoids History of brain tumor removed in 1997, came back 2018 Hyperlipidemia Hypertension Macular degeneration Osteoarthritis of hip Personal history of tobacco use Positive occult stool blood test Right acoustic neuroma ([facility]) Splenic sequestration Vitamin D deficiency Past Surgical [...] Exam Vitals reviewed. Exam conducted with a transplant nurse practitioner present (Priyank Lorenzolaney MS3). Constitutional: General: She is not in [...] / Plan 1. Acute hypoxic respiratory failure ([facility]) 2. Chronic obstructive pulmonary disease, unspecified COPD type ([facility]) 3. Influenza A 4. Aspiration pneumonia, unspecified aspiration pneumonia type, unspecified laterality, unspecified part of lung ([facility]) 5. Depression, unspecified depression type 6. Cigarette smoker 7. Type 2 diabetes mellitus without complication, without long-term current use of insulin ([facility]) 8. Anxiety Admit to [facility] [...] Stephen Macias DO documented in this encounter [facility] 12-14-2024 Discharge summary Note Date/Time December 14, 2024 2:47pm [facility] [address] [place] [address] Discharge Summary Signed Patient: Julian Montaño MR#: [id number] : 1955 Acct:[id number] Age/Sex: 69 / F Adm Date: 5 Loc: Room: [address] [place] [address]: Daniel Garza MD Copies to: MD Daniel Cruz, PIPELINE GANG SUPERVISOR-C~ Providers Date of Discharge: 12/14/24 Discharging Provider: [...] as GERD and depression. Patient came to [facility] after she was intubated by the [...] vomiting and no other concerns as per [facility] documentation. Labs at [facility] showed CBC with leukocytosis and left shift, [...] signs ofUTI. Her ABG was done at [facility] ER showed pH of 7.16 as well as PaCO2 of 71.5. She was intubated by EMS, was given 100 mg of succinylcholine 60 mg of ketamine and then 50 mg of fentanyl and 5 mg of Versed as well as 6.4 mg of Elconin. Also they reached out to cardiology at [facility] recommending again heparinization. EKG showed sinus tachycardia [...] started on bronchodilator steroid antibiotics and oseltamivir. Giving Officer was consulted who recommended continuing the same. [...] troponin likely in setting of type II MA. Follow-up echo showed normal ejection fraction of 65 to 70% with normal wall motion. PMR was consulted for possible inpatient rehab who recommended discharge to fdc facility. Patient was waiting for pre-CERT to fdc facility and is finally approved and is being dischargedthere. Condition Condition at Discharge: Stable Time Spent with Patient Time spent providing/coordinating discharge services (# min): 38 Discharge Plan Discharge Plan Patient Disposition: Shelter Facility Additional Instructions: Shelter Facility to manage care: - Full code [...] with device INHALATION Follow Up: Daniel Cardoso, PIPELINE GANG SUPERVISOR-C [Primary Care Provider] - (Follow-up with your Primary Care Provider after discharge from Shelter Facility) Exam Physical Exam Vital Signs: Temp [...] % (Auto) 84.6, Lymph % (Auto) 7.0, Saline % (Auto) 8.2, Eos % (Auto) 0.0, Baso % (Auto) 0.2, Nucleat RBC Rel Count 0.1, Neut # (Auto) 7.2, Lymph # (Auto) 0.6 L, Saline # (Auto) 0.7, Eos # (Auto) 0.0, [...] signed by Daniel Garza MD> 12/14/24 144 [facility] Work Phone: 1(504) 633-179201-31-2025 Progress note Author Daniel Garza [facility] Note Date/Time December 14, 2024 1 :58pm [facility] [address] [place] [address] Hospitalist Progress Note Signed Patient: Julian Montaño MR#: [id number] : 1955 Acct:[id number] Age/Sex: 69 / F Adm Date: 5 Loc: Room: [address] [place] [address] Type: ADM IN Attending Dr: Daniel Garza MD Copies to: ~ Date of Service: 12/14/2024 Subjective Subjective Narrative: This is a 69 y.o female with past medical history of COPD, dyslipidemia, hypertension, type 2 diabetes as well as GERD and depression. Patient came to [facility] after she was intubated by the [...] vomiting and no other concerns as per [facility] documentation. Labs at [facility] showed CBC with leukocytosis and left shift, [...] signs ofUTI. Her ABG was done at [facility] ER showed pH of 7.16 as well as PaCO2 of 71.5. She was intubated by EMS, was given 100 mg of succinylcholine 60 mg of ketamine and then 50 mg of fentanyl and 5 mg of Versed as well as 6.4 mg of Elconin. Also they reached out to cardiology at [facility] recommending again heparinization. EKG showed sinus tachycardia [...] started on bronchodilator steroid antibiotics and oseltamivir. Giving Officer was consulted who recommended continuing the same. [...] no water. Elevated troponin likely type 2 MA -Continue on steroids, bronchodilator, oseltamivir and antibiotics -ICU consult-appreciate recommendation -As per her daughter, pt does not drink alcohol or use drugs, She is a very active smoker -HSQ for DVT prophylaxis -Pantoprazole IV 40 mg daily for GI prophylaxis -Full code -consulted cardio-believes elevated troponin likely in setting of type II MA. Follow-up echo showed normal ejection fraction of 65 to 70% with normal wall motion -PMR was consulted who recommended discharge to fdc facility. Full code Documented By: Daniel Garza MD 12/14/24 6156 Signed By: <Electronically signed by Daniel Garza MD> 12/14/24 1358 [facility] Work Phone: 1(892) 767-556701-31-2025 Progress note Author Cecilia Ruiz [facility] Note Date/Time December 14, 2024 1 :18pm [facility] [address] [place] [address] Pulmonology Progress Note Signed Patient: Julian Montaño MR#: [id number] : 1955 Acct:[id number] Age/Sex: 69 / F Adm Date: 5 Loc: 4 Room: [address] [place] [address] Type: ADM IN Attending Dr: Daniel Garza [...] signed by Cecilia Ruiz MD> 12/14/24 1318 [facility] Work Phone: 1(232) 537-658901-31-[address] [address] Discharge Summary Signed Patient: Julian Montaño MR#: [id number] : 1955 Acct:[id number] Age/Sex: 69 / F Adm Date: 5 Loc: Room: [address] [place] [address]: Daniel Garza MD Copies to: MD Daniel Cruz, PIPELINE GANG SUPERVISOR-C~ Providers Date of Discharge: 12/14/24 Discharging Provider: [...] as GERD and depression. Patient came to [facility] after she was intubated by the [...] vomiting and no other concerns as per [facility] documentation. Labs at [facility] showed CBC with leukocytosis and left shift, [...] no signs ofUTI. Her ABG wasdone at [facility] ER showed pH of 7.16 as well as PaCO2 of 71.5. She was intubated by EMS, was given 100 mg of succinylcholine 60 mg of ketamine and then 50 mg of fentanyl and 5 mg of Versed as well as 6.4 mg of Elconin. Also they reached out to cardiology at [facility] recommending again heparinization. EKG showed sinus tachycardia [...] started on bronchodilator steroid antibiotics and oseltamivir. Giving Officer was consulted who recommended continuing the same. [...] troponin likely in setting of type II MA. Follow-up echo showed normal ejection fraction of 65 to 70% with normal wall motion. PMR was consulted for possible inpatient rehab who recommended discharge to fdc facility. Patient was waiting for pre-CERT to fdc facility and is finally approved and isbeing dischargedthere. Condition Condition at Discharge: Stable Time Spent with Patient Time spent providing/coordinating discharge services (# min): 38 Discharge Plan Discharge Plan Patient Disposition: Shelter Facility Additional Instructions: Shelter Facility to manage care: - Full code [...] with device INHALATION Follow Up: Daniel Cardoso, PIPELINE GANG SUPERVISOR-C [Primary Care Provider] - (Follow-up with your Primary Care Provider after discharge from Shelter Facility) Exam Physical Exam Vital Signs: Temp [...] % (Auto) 84.6, Lymph % (Auto) 7.0, Saline % (Auto) 8.2, Eos % (Auto) 0.0, Baso % (Auto) 0.2, Nucleat RBC Rel Count 0.1, Neut # (Auto) 7.2, Lymph # (Auto) 0.6 L, Saline # (Auto) 0.7, Eos # (Auto) 0.0, [...] Daniel Garza MD 12/14/24 1443 Signed By: 12/14/24 1447 [facility]01-31-20[place] [address] Hospitalist Progress Note Signed Patient: Julian Montaño MR#: [id number] : 1955 Acct:[id number] Age/Sex: 69 / F Adm Date: 5 Loc: Room: [address] [place] [address] Type: ADM IN Attending Dr: Daniel Garza MD Copies to: ~ Date of Service: 12/14/2024 Subjective Subjective Narrative: This is a 69 y.o female with past medical history of COPD, dyslipidemia, hypertension, type 2 diabetes as well as GERD and depression. Patient came to [facility] after she was intubated by the [...] vomiting and no other concerns as per [facility] documentation. Labs at [facility] showed CBC with leukocytosis and left shift, [...] no signs ofUTI. Her ABG wasdone at [facility] ER showed pH of 7.16 as well as PaCO2 of 71.5. She was intubated by EMS, was given 100 mg of succinylcholine 60 mg of ketamine and then 50 mg of fentanyl and 5 mg of Versed as well as 6.4 mg of Elconin. Also they reached out to cardiology at [facility] recommending again heparinization. EKG showed sinus tachycardia [...] started on bronchodilator steroid antibiotics and oseltamivir. Giving Officer was consulted who recommended continuing the same. [...] Ml SUBCUT 12/12/25 21:59 Not Given ACHS [facility] Protocol Oseltamivir Phosphate 30 mg 12/13/24 21:00 [...] no water. Elevated troponin likely type 2 MA -Continue on steroids, bronchodilator, oseltamivir and antibiotics -ICU consult-appreciate recommendation -As per her daughter, pt does not drink alcohol or use drugs, She is a very active smoker -HSQ for DVT prophylaxis -Pantoprazole IV 40 mg daily for GI prophylaxis -Full code -consulted cardio-believes elevated troponin likely in setting of type II MA. Follow-up echo showednormal ejection fraction of 65 to 70% with normal wall motion -PMR was consulted who recommended discharge to fdc facility. Full code Documented By: Daniel Garza MD 12/14/24 1356 Signed By: 12/14/24 1358 [facility]01-31-2025 [place] [address] Pulmonology Progress Note Signed Patient: Julian Montaño MR#: [id number] : 1955 Acct:[id number] Age/Sex: 69 / F Adm Date: 5 Loc: Room: [address] [place] [address] Type: ADM IN Attending Dr: Daniel Garza [...] Ruiz MD 12/14/241316 Signed By: 12/14/24 1318 [facility]01-30-2025 Progress note Author Cecilia Ruiz [facility] Note Date/Time December 13, 2024 1 :53pm [facility] [address] [place] [address] Pulmonology Progress Note Signed Patient: Julian Montaño MR#: [id number] : 1955 Acct:[id number] Age/Sex: 69 / F Adm Date: 5 Loc: Room: [address] [place] [address] Type: ADM IN Attending Dr: Daniel Garza [...] <Electronically signed by Cecilia Ruiz MD> 12/13/24 6055 [facility] Work Phone: 1(310) 460-972801-30-2025 Progress note Author Daniel Garza [facility] Note Date/Time December 13, 2024 1 :41pm [facility] [address] [place] [address] Hospitalist Progress Note Signed Patient: Julian Montaño MR#: [id number] : 1955 Acct:[id number] Age/Sex: 69 / F Adm Date: 5 Loc: Room: [address] [place] [address] Type: ADM IN Attending Dr: Daniel Garza MD Copies to: ~ Date of Service: 12/13/2024 Subjective Subjective Narrative: This is a 69 y.o female with past medical history of COPD, dyslipidemia, hypertension, type 2 diabetes as well as GERD and depression. Patient came to [facility] ER after she was intubated by the [...] vomiting and no other concerns as per [facility] documentation. Labs at [facility] showed CBC with leukocytosis and left shift, [...] signs ofUTI. Her ABG was done at [facility] ER showed pH of 7.16 as well as PaCO2 of 71.5. She was intubated by EMS, was given 100 mg of succinylcholine 60 mg of ketamine and then 50 mg of fentanyl and 5 mg of Versed as well as 6.4 mg of Elconin. Also they reached out to cardiology at [facility] recommending again heparinization. EKG showed sinus tachycardia [...] started on bronchodilator steroid antibiotics and oseltamivir. Giving Officer was consulted who recommended continuing the same. [...] Ml SUBCUT 12/12/25 21:59 Not Given ACHS [facility] Protocol Oseltamivir Phosphate 30 mg 12/13/24 21:00 [...] no water. Elevated troponin likely type 2 MA -Continue on steroids, bronchodilator, oseltamivir and antibiotics -ICU consult-appreciate recommendation -As per her daughter, pt does not drink alcohol or use drugs, She is a very active smoker -HSQ for DVT prophylaxis -Pantoprazole IV 40 mg daily for GI prophylaxis -Full code -consulted cardio-believes elevated troponin likely in setting of type II MA. Follow-up echo showed normal ejection fraction of 65 to 70% with normal wall motion -PMR was consulted who recommended discharge to fdc facility. Full code Documented By: Daniel Garza MD 12/13/24 1330 Signed By: <Electronically signed by Daniel Garza MD> 12/13/24 1341 [facility] Work Phone: 1(995) 968-521501-30-2025 Consult note Author Dave Bazan [facility] Note Date/Time December 13, 2024 1 :29pm [facility] [address] [place] [address] Physiatry (Rehab) Consult Note Signed Patient: Julian Montaño MR#: [id number] : 1955 Acct:[id number] Age/Sex: 69 / F Adm Date: 5 Loc: 4P Room: 8D4312-7 Type: ADM IN Attending Dr: Daniel Garza MD Copies to: MD Daniel Cruz, LINDAC Dave Bazan MD~ HPI Consult Date: 12/13/24 Requesting Physician: Daniel Garza MD Primary Care Provider: SILVER Francois Consult Narrative HPI: Ms. Montaño is a 69 year old female with PMH COPD, dyslipidemia, hypertension, type2 diabetes as well as GERD and depression. The patient was transferred [facility] from [facility] after being found unresponsive and being intubated [...] negative unless noted below or in HPI [facility] Medical History Depressed Acute hypoxic respiratory failure [...] % (Auto) 87.0 Lymph % (Auto) 6.4 Saline % (Auto) 6.5 Eos % (Auto) 0.0 Baso % (Auto) 0.1 Nucleat RBC Rel Count 0.1 Neut # (Auto) 9.3 H Lymph # (Auto) 0.7 L Saline # (Auto) 0.7 Eos # (Auto) 0.0 [...] MPV Neut % (Auto) Lymph % (Auto) Saline % (Auto) Eos % (Auto) Baso % (Auto) Nucleat RBC Rel Count Neut # (Auto) Lymph # (Auto) Saline # (Auto) Eos # (Auto) Baso # [...] this patient on discharge should be a fdc facility. She does not meet inpatient rehab [...] chart, including current orders, allied health and service delivery consultant notes, labs/imaging and performed barrow elements of exam and I formulated the plan of care and facilitated the medical decision making. I completed a substantive portion of this encounter, the medical decision making portion of this note in its entirety, including Allied health note review, nursing note review, service delivery consultant note review, discussion with nursing and case management, and more than 50% of my time was spent on counseling and coordination of care, time spent 45 minutes Documented By: Dave Bazan MD 1254 Signed By: <Electronically signed by Dave Bazan MD> 12/13/24 1329 [facility] Work Phone: 1(220) 525-867001-30-2025 [place] [id number] Pulmonology Progress Note Signed Patient: Julian Montaño MR#: [id number] : 1955 Acct:[id number] Age/Sex: 69 / F Adm Date: 5 Loc: Room: [address] [place] [address] Type: ADM IN Attending Dr: Daniel Garza [...] MD 12/13/24 1351 Signed By: 12/13/24 1353 [facility]01-30-2025 [place] [address] Hospitalist Progress Note Signed Patient: Julian Montaño MR#: [id number] : 1955 Acct:[id number] Age/Sex: 69 / F Adm Date: 5 Loc: Room: [address] [place] [address] Type: ADM IN Attending Dr: Daniel Garza MD Copies to: ~ Date of Service: 12/13/2024 Subjective Subjective Narrative: This is a 69 y.o female with past medical history of COPD, dyslipidemia, hypertension, type 2 diabetes as well as GERD and depression. Patient came to [facility] ER after she was intubated by the [...] vomiting and no other concerns as per [facility] documentation. Labs at [facility] showed CBC with leukocytosis and left shift, [...] no signs ofUTI. Her ABG wasdone at [facility] ER showed pH of 7.16 as well as PaCO2 of 71.5. She was intubated by EMS, was given 100 mg of succinylcholine 60 mg of ketamine and then 50 mg of fentanyl and 5 mg of Versed as well as 6.4 mg of Elconin. Also they reached out to cardiology at [facility] recommending again heparinization. EKG showed sinus tachycardia [...] started on bronchodilator steroid antibiotics and oseltamivir. Giving Officer was consulted who recommended continuing the same. [...] Ml SUBCUT 12/12/25 21:59 Not Given ACHS [facility] Protocol Oseltamivir Phosphate 30 mg 12/13/24 21:00 [...] no water. Elevated troponin likely type 2 MA -Continue on steroids, bronchodilator, oseltamivir and antibiotics -ICU consult-appreciate recommendation -As per her daughter, pt does not drink alcohol or use drugs, She is a very active smoker -HSQ for DVT prophylaxis -Pantoprazole IV 40 mg daily for GI prophylaxis -Full code -consulted cardio-believes elevated troponin likely in setting of type II MA. Follow-up echo showednormal ejection fraction of 65 to 70% with normal wall motion -PMR was consulted who recommended discharge to fdc facility. Full code Documented By: Daniel Garza MD 12/13/24 1337 Signed By: 12/13/24 1341 [facility]01-30-2025 [place] [address] Physiatry (Rehab) Consult Note Signed Patient: Julian Montaño MR#: [id number] : 1955 Acct:[id number] Age/Sex: 69 / F Adm Date: 5 Loc: Room: [address] [place] [address] Type: ADM IN Attending Dr: Daniel Garza MD Copies to: MD Daniel Cruz, PIPELINE GANG SUPERVISORShayyC Dave Bazan MD~ HPI Consult Date: 12/13/24 Requesting Physician: Daniel Garza MD Primary Care Provider: SILVER Francois Consult Narrative HPI: Ms. Montaño is a 69 year old female with PMH COPD, dyslipidemia, hypertension, type2 diabetes as well as GERD and depression. The patient was transferred tO [facility] from [facility] after being found unresponsive and being intubated [...] negative unless noted below or in HPI [facility] Medical History Depressed Acute hypoxic respiratory failure [...] 62.5 mcg-vilant 25 mcg inhalat.powder (Trelegy Ellipta) [id number]/27/25 [History] losartan 50 mg tablet mg 12/10/24 [...] % (Auto) 87.0 Lymph % (Auto) 6.4 Saline % (Auto) 6.5 Eos % (Auto) 0.0 Baso % (Auto) 0.1 Nucleat RBC Rel Count 0.1 Neut # (Auto) 9.3 H Lymph # (Auto) 0.7 L Saline # (Auto) 0.7 Eos # (Auto) 0.0 [...] MPV Neut % (Auto) Lymph % (Auto) Saline % (Auto) Eos % (Auto) Baso % (Auto) Nucleat RBC Rel Count Neut # (Auto) Lymph # (Auto) Saline # (Auto) Eos # (Auto) Baso # [...] this patient on discharge should be a fdc facility. She does not meet inpatient rehab [...] chart, including current orders, allied health and service delivery consultant notes, labs/imaging and performed barrow elements of exam and I formulated the plan of care and facilitated the medical decision making. I completed a substantive portion of this encounter, the medical decision making portion of this note in its entirety, including Allied health note review, nursing note review, service delivery consultant note review, discussion with nursing and case management, and more than 50% of my time was spent on counseling and coordination of care, time spent 45 minutes Documented By: Dave Bazan MD 1254 Signed By: 12/13/24 1329 [facility]01-29-2025 Progress note Author Daniel Garza [facility] Note Date/Time December 12, 2024 2 :45pm [facility] [address] [place] [address] Hospitalist Progress Note Signed Patient: Julian Montaño MR#: [id number] : 1955 Acct:[id number] Age/Sex: 69 / F Adm Date: 5 Loc: Room: [address] [place] [address] Type: ADM IN Attending Dr: Daniel Garza MD Copies to: ~ Date of Service: 12/12/2024 Subjective Subjective Narrative: This is a 69 y.o female with past medical history of COPD, dyslipidemia, hypertension, type 2 diabetes as well as GERD and depression. Patient came to [facility] ER after she was intubated by the [...] vomiting and no other concerns as per [facility] documentation. Labs at [facility] showed CBC with leukocytosis and left shift, [...] signs ofUTI. Her ABG was done at [facility] ER showed pH of 7.16 as well as PaCO2 of 71.5. She was intubated by EMS, was given 100 mg of succinylcholine 60 mg of ketamine and then 50 mg of fentanyl and 5 mg of Versed as well as 6.4 mg of Elconin. Also they reached out to cardiology at [facility] recommending again heparinization. EKG showed sinus tachycardia [...] started on bronchodilator steroid antibiotics and oseltamivir. Giving Officer was consulted who recommended continuing the same. [...] no water. Elevated troponin likely type 2 MA -Okay to be transferred out of ICU. -Continue on steroids, bronchodilator, oseltamivir and antibiotics -ICU consult-appreciate recommendation -As per her daughter, pt does not drink alcohol or use drugs, She is a very active smoker -HSQ for DVT prophylaxis -Pantoprazole IV 40 mg daily for GI prophylaxis -Full code -consulted cardio Documented By: Daniel Garza MD 12/12/24 8021 Signed By: <Electronically signed by Daniel Garza MD> 12/12/24 1701 [facility] Work Phone: 1(139) 348-997401-29-2025 [place] [address] Hospitalist Progress Note Signed Patient: Julian Montaño MR#: [id number] : 1955 Acct:[id number] Age/Sex: 69 / F Adm Date: Loc: Room: [address] [place] [address] Type: ADM IN Attending Dr: Daniel Garza MD Copies to: ~ Date of Service: 12/12/2024 Subjective Subjective Narrative: This is a 69 y.o female with past medical history of COPD, dyslipidemia, hypertension, type 2 diabetes as well as GERD and depression. Patient came to [facility] after she was intubated by the [...] vomiting and no other concerns as per [facility] documentation. Labs at [facility] showed CBC with leukocytosis and left shift, [...] no signs ofUTI. Her ABG wasdone at [facility] ER showed pH of 7.16 as well as PaCO2 of 71.5. She was intubated by EMS, was given 100 mg of succinylcholine 60 mg of ketamine and then 50 mg of fentanyl and 5 mg of Versed as well as 6.4 mg of Elconin. Also they reached out to cardiology at [facility] recommending again heparinization. EKG showed sinus tachycardia [...] started on bronchodilator steroid antibiotics and oseltamivir. Giving Officer was consulted who recommended continuing the same. [...] no water. Elevated troponin likely type 2 MA -Okay to be transferred out of ICU. -Continue on steroids, bronchodilator, oseltamivir and antibiotics -ICU consult-appreciate recommendation -As per her daughter, pt does not drink alcohol or use drugs, She is a very active smoker -HSQ for DVT prophylaxis -Pantoprazole IV 40 mg daily for GI prophylaxis -Full code -consulted cardio Documented By: Daniel Garza MD 12/12/241442 Signed By: 12/12/24 1445 [facility]01-29-2025 Progress note Author Cecilia Ruiz [facility] Note Date/Time December 12, 2024 1 1:35am [facility] [address] [place] [address] Pulmonology Progress Note Signed Patient: Julian Montaño MR#: [id number] : 1955 Acct:[id number] Age/Sex: 69 / F Adm Date: 5 Loc: Room: [address] [place] [address] Type: ADM IN Attending Dr: Daniel Garza [...] today Documented By: Cecilia Ruiz MD 12/12/24 0072 Signed By: <Electronically signed by Cecilia Ruiz MD> 12/12/24 1135 [facility] Work Phone: 1(467) 536-265601-29-[address] [address] Pulmonology Progress Note Signed Patient: Julian Montaño MR#: [id number] : 1955 Acct:[id number] Age/Sex: 69 / F Adm Date: 5 Loc: Room: [address] [place] [address] Type: ADM IN Attending Dr: Daniel Garza [...] Ruiz MD 12/12/241132 Signed By: 12/12/24 1135 [facility]01-28-2025 Progress note Author Cecilia Ruiz [facility] Note Date/Time December 11, 2024 2 :49pm [facility] [address] [place] [address] Pulmonology Progress Note Signed Patient: uJlian Montaño MR#: [id number] : 1955 Acct:[id number] Age/Sex: 69 / F Adm Date: 5 Loc: Room: [address] [place] [address] Type: ADM IN Attending Dr: Daniel Garza [...] signed by Cecilia Ruiz MD> 12/11/24 1449 [facility] Work Phone: 1(630) 107-637001-28-2025 Progress note Author Daniel Garza [facility] Note Date/Time December 11, 2024 2 :43pm [facility] [address] [place] [address] Hospitalist Progress Note Signed Patient: Julian Montaño MR#: [id number] : 1955 Acct:[id number] Age/Sex: 69 / F Adm Date: 5 Loc: Room: [id number] Type: ADM IN Attending Dr: Daniel Garza MD Copies to: ~ Date of Service: 12/11/2024 Subjective Subjective Narrative: This is a 69 y.o female with past medical history of COPD, dyslipidemia, hypertension, type 2 diabetes as well as GERD and depression. Patient came to [facility] ER after she was intubated by the [...] vomiting and no other concerns as per [facility] documentation. Labs at [facility] showed CBC with leukocytosis and left shift, [...] signs ofUTI. Her ABG was done at [facility] ER showed pH of 7.16 as well as PaCO2 of 71.5. She was intubated by EMS, was given 100 mg of succinylcholine 60 mg of ketamine and then 50 mg of fentanyl and 5 mg of Versed as well as 6.4 mg of Elconin. Also they reached out to cardiology at [facility] recommending again heparinization. EKG showed sinus tachycardia [...] started on bronchodilator steroid antibiotics and oseltamivir. Giving Officer was consulted who recommended continuing the same. [...] Ml SUBCUT 12/10/25 11:59 Not Given Q6HR [facility] Protocol Methylprednisolone Sodium Succinate 40 mg 12/10/24 [...] no water. Elevated troponin likely type 2 MA -Continue to admit in ICU -Continue on [...] prophylaxis -Full code -consulted cardio Documented By: Dnaiel Garza MD 12/11/24 1431 Signed By: <Electronically signed by Daniel Garza MD> 12/11/24 0299 [facility] Work Phone: 1(461) 575-751001-28-2025 [place] [address] Pulmonology Progress Note Signed Patient: Julian Montaño MR#: [id number] : 1955 Acct:[id number] Age/Sex: 69 / F Adm Date: 5 Loc: Room: [address] [place] [address] Type: ADM IN Attending Dr: Daniel Garza [...] Ruiz MD 12/11/241445 Signed By: 12/11/24 1449 [facility]01-28-2025 [place] [address] Hospitalist Progress Note Signed Patient: Julian Montaño MR#: [id number] : 1955 Acct:[id number] Age/Sex: 69 / F Adm Date: 5 Loc: Room: [address] [place] [address] Type: ADM IN Attending Dr: Daniel Garza MD Copies to: ~ Date of Service: 12/11/2024 Subjective Subjective Narrative: This is a 69 y.o female with past medical history of COPD, dyslipidemia, hypertension, type 2 diabetes as well as GERD and depression. Patient came to [facility] ER after she was intubated by the [...] vomiting and no other concerns as per [facility] documentation. Labs at [facility] showed CBC with leukocytosis and left shift, [...] no signs ofUTI. Her ABG wasdone at [facility] ER showed pH of 7.16 as well as PaCO2 of 71.5. She was intubated by EMS, was given 100 mg of succinylcholine 60 mg of ketamine and then 50 mg of fentanyl and 5 mg of Versed as well as 6.4 mg of Elconin. Also they reached out to cardiology at [facility] recommending again heparinization. EKG showed sinus tachycardia [...] started on bronchodilator steroid antibiotics and oseltamivir. Giving Officer was consulted who recommended continuing the same. [...] no water. Elevated troponin likely type 2 MA -Continue to admit in ICU -Continue on [...] cardio Documented By: Daniel Garza MD 12/11/24 143 Signed By: 12/11/24 1443 [facility]01-28-2025 Consult note Author Krissy Cortez [facility] Note Date/Time December 10, 2024 1 0:30pm [facility] [address] [place] [address] Cardiology Consult Note Signed Patient: Julian Montaño MR#: [id number] : 1955 Acct:[id number] Age/Sex: 69 / F Adm Date: 5 Loc: Room: [address] [place] [address] Type: ADM IN Attending Dr: Daniel Garza MD Copies to: MD Daniel Cruz NP-C Kyle Denihan, DO,RES Krissy Cortez MD~ Cardiology HPI History [...] who was transferred to our facility from [facility] last night. Per prior documentation, the patient arrived to [facility] ER after being intubated by EMS. She was reportedly found unresponsive by her boyfriend (unknown downtime) and was not responding. Additionally, prior documentation reveals that family was noting the patient complaining of shortness of breath for 2 days prior to arrival in the emergency department. [facility] labs revealed a leukocytosis, hemoglobin of 10.6, [...] of Systems Unobtainable due to endotracheal tube [facility] Medical History (Updated 12/10/24 @ 15:52 by [...] H Lymph # (Auto) N/A 0.2 L Saline # (Auto) N/A 0.5 Eos # (Auto) [...] recheck about 9 hours later -EKG from [facility] reviewed and shows sinus tachycardia with right bundle branch block without evidence of ischemic changes -I believe the elevated troponins indicative of a type II MA and have low suspicion for type I MA, however will obtain echocardiogram for further evaluation [...] agree with the resident's note. Type II MA in the setting of acute hypoxic respiratory failure. ECHO shows normal LVEF 65-70% with normal wall motion. Can consider stress MPI as outpatient once recovered from acute resp issues. Cardiology will see again as needed. = Documented By: Krissy Cortez MD 12/10/24 1020 Signed By: <Electronically signed by Krissy Cortez MD> 12/10/24 2230 <Electronically signed by DO DEVEN Butler> 12/10/24 1551 [facility] Work Phone: 1(378) 416-436701-27-2025 Consult [place] [id number] Cardiology Consult Note Signed Patient: Julian Montaño MR#: [id number] : 1955 Acct:[id number] Age/Sex: 69 / F Adm Date: 5 Loc: Room: [address] [place] [address] Type: ADM IN Attending Dr: Daniel Garza MD Copies to: MD Daniel Cruz, [employer] G[employer] SUPERVISOR-C Suman Butler DO,DEVEN Cortez MD~ Cardiology HPI [...] who was transferred to our facility from [facility] lastnight. Per prior documentation, the patient arrived to [facility] ER after being intubated by EMS. She was reportedly found unresponsive by her boyfriend (unknown downtime) and was not responding. Additionally, prior documentation reveals that family was noting the patient complaining of shortness ofbreath for 2 days prior to arrival in the emergency department. [place] labs revealed a leukocytosis, hemoglobin of 10.6, [...] of Systems Unobtainable due to endotracheal tube [facility] Medical History (Updated 12/10/24 @ 15:52 by [...] 62.5 mcg-vilant 25 mcg inhalat.powder (Trelegy Ellipta) [id number]/27/25 [History] losartan 50 mg tablet mg 12/10/24 [...] H Lymph # (Auto) N/A 0.2 L Saline # (Auto) N/A 0.5 Eos # (Auto) [...] recheck about 9 hours later -EKG from [facility] reviewed and shows sinus tachycardia with right bundle branch block without evidence of ischemic changes -I believe the elevated troponins indicative of a type II MA and have low suspicion for type I MA, however will obtain echocardiogram for further evaluation [...] agree with the resident's note. Type II MA in the setting of acute hypoxic respiratory failure. ECHO shows normal LVEF 65-70% with normal wall motion. Can consider stress MPI as outpatient once recovered from acute resp issues. Cardiology will see again as needed. = Documented By: Krissy Cortez MD 12/10/24 1020 Signed By: 12/10/24 2230 12/10/24 1554 [facility]01-27-2025 Progress note Author Daniel Garza [facility] Note Date/Time December 10, 2024 8 :26pm [facility] [address] [place] [address] Hospitalist Progress Note Signed Patient: Julian Montaño MR#: [id number] : 1955 Acct:[id number] Age/Sex: 69 / F Adm Date: 5 Loc: Room: [address] [place] [address] Type: ADM IN Attending Dr: Daniel Garza MD Copies to: ~ Date of Service: 12/10/2024 Subjective Subjective Narrative: This is a 69 y.o female that appears from the medication reconciliation [facility], patient appears to have past medical history of COPD, dyslipidemia, hypertension, type 2 diabetes as well as GERD and depression. Patient came to [facility] ER after she was intubated by the [...] vomiting and no other concerns as per [facility] documentation. Labs at [facility] showed CBC with leukocytosis and left shift, [...] signs ofUTI. Her ABG was done at [facility] ER showed pH of 7.16 as well as PaCO2 of 71.5. She was intubated by EMS, was given 100 mg of succinylcholine 60 mg of ketamine and then 50 mg of fentanyl and 5 mg of Versed as well as 6.4 mg of Elconin. Also they reached out to cardiology at [facility] recommending again heparinization. EKG showed sinus tachycardia [...] no water. Elevated troponin likely type 2 MA -Continue to admit in ICU -Continue on [...] elevated troponin in setting of type II MA. Plan to obtain echo Documented By: Daniel Garza MD 12/10/242020 Signed By: <Electronically signed by Daniel Garza MD> 12/10/242025 [facility] Work Phone: 1(816) 226-122601-27-2025 [place] [address] Hospitalist Progress Note Signed Patient: Julian Montaño MR#: [id number] : 1955 Acct:[id number] Age/Sex: 69 / F Adm Date: 5 Loc: Room: [address] [place] [address] Type: ADM IN Attending Dr: Daniel Garza MD Copies to: ~ Date of Service: 12/10/2024 Subjective Subjective Narrative: This is a 69 y.o female that appears from the medication reconciliation [facility], patient appears to have past medical history of COPD, dyslipidemia, hypertension, type 2 diabetes as well as GERD anddepression. Patient came to [facility] ER after she was intubated by the [...] vomiting and no other concerns as per [facility] documentation. Labs at [facility] showed CBC with leukocytosis and left shift, [...] no signs ofUTI. Her ABG wasdone at [facility] ER showed pH of 7.16 as well as PaCO2 of 71.5. She was intubated by EMS, was given 100 mg of succinylcholine 60 mg of ketamine and then 50 mg of fentanyl and 5 mg of Versed as well as 6.4 mg of Elconin. Also they reached out to cardiology at [facility] recommending again heparinization. EKG showed sinus tachycardia [...] no water. Elevated troponin likely type 2 MA -Continue to admit in ICU -Continue on [...] elevated troponin in setting of type II MA. Plan to obtain echo Documented By: Daniel Garza MD 12/10/242020 Signed By: 12/10/242025 [facility]01-27-2025 Consult note Author Cecilia Ruiz [facility] Note Date/Time December 10, 2024 4 :32pm [facility] [address] [place] [address] Pulmonology Consult Note Signed Patient: Julian Montaño MR#: [id number] : 1955 Acct:[id number] Age/Sex: 69 / F Adm Date: 5 Loc: Room: [address] [place] [address] Type: ADM IN Attending Dr: Daniel Garza MD Copies to: MD Cecilia Cruz MD Brittany N Fitzpatrick, PIPELINE GANG SUPERVISOR-C~ HPI Date/Time of Consultation: Date of Service: 12/10/2024 Time of Service: 16:25 Consulting Provider: Cecilia Ruiz Requesting Provider: Daniel Garza Reason for Consult: Respiratory failure History of Present Illness History of present illness: Ms. Montaño is a 69 year old female with a past medical history of COPD, dyslipidemia, hypertension, type 2 diabetes as well as GERD and depression, presented to [facility] after she was found unresponsive by [...] nondistended. Extremities: No edema. 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 [...] minutes. Documented By: Cecilia Ruiz MD 12/10/24 1625 Signed By: <Electronically signed by Cecilia Ruiz MD> 12/10/24 4955 [facility] Work Phone: 1(349) 699-972501-27-[address] [address] Pulmonology Consult Note Signed Patient: Julian Montaño MR#: [id number] : 1955 Acct:[id number] Age/Sex: 69 / F Adm Date: 5 Loc: Room: [address] [place] [address] Type: ADM IN Attending Dr: Daniel Garza [...] well as GERD and depression, presented to [facility] after she was found unresponsive by [...] nondistended. Extremities: No edema. 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 [...] 32 minutes. Documented By: Cecilia Ruiz MD 12/10/245 Signed By: 12/10/24 1632 [facility]01-26-2025 Evaluation note* Diagnosis Onset Date Resolution [...] 2024 9:05pm Tobacco abuse acute November 9:05pm [facility] Work Phone: 1([phone]) 881-906401-26-2025 Evaluation note* Diagnosis Onset Date Resolution Status [...] 9:05pm Hypotension resolved December 09, 2024 9:05pm [facility] Work Phone: 1(990) 639-566011-07-2024 History of Present illness Narrative* Daniel Cardoso NP - 09/20/2024 10:53 AM ESTAssociated Problem(s): Type 2 diabetes mellitus without complication, without long-term current useof insulin ([facility]) Currently taking Metformin 500mg Most recent labs: [...] 09/20/2024 10:52 AM ESTAssociated Problem(s): Other hyperlipidemia ([facility]) Currently taking Atorvastatin 40mg Denies any myalgias. Continue current regimen. * Daniel Cardoso NP - 09/20/2024 10:52 AM ESTAssociated Problem(s): Primary hypertension ([facility]) Currently taking Losartan-hydrochlorothiazide 50/12.5mg Checks BP at home; Bp log shows several low BP readings in the 90's systolic. Will decrease losartan hydrochlorothiazide today. Eliminate hydrochlorothiazide. Losartan 50mg only Given BP log, advised pt to record BP and bring log back with them to next visit. * Daniel Cardoso NP - 09/20/2024 10:27 AM ESTAssociated Problem(s): Asthma with COPD (chronic obstructive pulmonary disease) ([facility]) Currently taking Trelegy Daily and Albuterol PRN [...] MODERATE RISK >11.0 HIGH RISK Resulting Agency [facility] DMII: Most recent labs: hemoglobin [...] List Items Addressed This Visit Other hyperlipidemia ([facility]) Currently taking Atorvastatin 40mg Denies any myalgias. Continue current regimen. Type 2 diabetes mellitus without complication, without long-term current use of insulin ([facility]) Currently taking Metformin 500mg Most recent labs: [...] Asthma with COPD (chronic obstructive pulmonary disease) ([facility]) Currently taking Trelegy Daily and Albuterol PRN No exacerbations recently Reports using rescue inhaler 3 times per month. Continue current regimen Primary hypertension ([facility]) - Primary Currently taking Losartan-hydrochlorothiazide 50/12.5mg Checks [...] (Augmentin) 875-125 MG tablet documented in this [facility]11-07-2024 Instructions* Patient Instructions* Daniel Cardoso NP [...] if you need anything! documented in this [facility]10-29-2024 Telephone encounter Note* Telephone Encounter - Sabina Black MA - 09/11/2024 3:30 PM EDT Pt requesting a refill on her mobic, ANETTE:06/21/2024 NOV:09/20/2024 [id number] Miscellaneous Notes* Telephone Encounter - Sabina Black MA - 09/11/2024 3:30 PM EDT Pt requesting a refill on her mobic, ANETTE:06/21/2024 NOV:09/20/2024 [facility] No data available for this section [facility] Diagnosis 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 loss- Primary Iron deficiency anemia secondary to blood loss (chronic) Current smoker Other hyperlipidemia ([facility]/HCC) Moderate persistent asthma without complication ([facility]) Type 2 diabetes mellitus without complication, without long-term current use of insulin ([facility]) Screening mammogram, encounter for Recurrent major depressive disorder, in full remission ([facility]) Asthma with COPD (chronic obstructive pulmonary disease) ([facility])- Primary 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) Type 2 diabetes mellitus without complication, without long-term current use of insulin ([facility]) Primary hypertension ([facility]) Unspecified essential hypertension Asthma with COPD (chronic obstructive pulmonary disease) ([facility])- Primary Primary hypertension ([facility]) Unspecified essential hypertension Type 2 diabetes mellitus without complication, without long-term current use of insulin ([facility]) Primary hypertension ([facility])- Primary Unspecified essential hypertension Asthma with COPD (chronic obstructive pulmonary disease) ([facility]) 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) Other hyperlipidemia ([facility]) Type 2 diabetes mellitus without complication, without long-term current use of insulin ([facility]) Vitamin D deficiency Dermoid cyst of right ear Tobacco dependency Tobacco use disorder Asthma with COPD (chronic obstructive pulmonary disease) ([facility]) documented in this encounter [facility]* Diagnosis 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 loss- Primary Iron deficiency anemia secondary to blood loss (chronic) Current smoker Other hyperlipidemia ([facility]/HCC) Moderate persistent asthma without complication ([facility]) Type 2 diabetes mellitus without complication, without long-term current use of insulin ([facility]) Screening mammogram, encounter for Recurrent major depressive disorder, in full remission ([facility]) Asthma with COPD (chronic obstructive pulmonary disease) ([facility])- Primary 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) Type 2 diabetes mellitus without complication, without long-term current use of insulin ([facility]) Primary hypertension ([facility]) Unspecified essential hypertension Asthma with COPD (chronic obstructive pulmonary disease) ([facility])- Primary Primary hypertension ([facility]) Unspecified essential hypertension Type 2 diabetes mellitus without complication, without long-term current use of insulin ([facility]) Primary hypertension ([facility])- Primary Unspecified essential hypertension Asthma with COPD (chronic obstructive pulmonary disease) ([facility]/HCC) 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) Other hyperlipidemia (CMS/HCC) Type 2 diabetes mellitus without complication, without long-term current use of insulin ([facility]) Vitamin D deficiency Dermoid cyst of right ear Tobacco dependency Tobacco use disorder Type 2 diabetes mellitus without complications (CMS/HCC) documented in this encounter [facility] HealthcareEvaluation note* Diagnosis 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 loss- Primary Iron deficiency anemia secondary to blood loss (chronic) Current smoker Other hyperlipidemia (CMS/HCC) Moderate persistent asthma without complication ([facility]/HCC) Type 2 diabetes mellitus without complication, without long-term current use of insulin ([facility]) Screening mammogram, encounter for Recurrent major depressive disorder, in full remission ([facility]) Asthma with COPD (chronic obstructive pulmonary disease) ([facility])- Primary 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) Type 2 diabetes mellitus without complication, without long-term current use of insulin ([facility]) Primary hypertension ([facility]) Unspecified essential hypertension Asthma with COPD (chronic obstructive pulmonary disease) ([facility])- Primary Primary hypertension ([facility]) Unspecified essential hypertension Type 2 diabetes mellitus without complication, without long-term current use of insulin ([facility]) Primary hypertension ([facility])- Primary Unspecified essential hypertension Asthma with COPD (chronic obstructive pulmonary disease) ([facility]) 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) Other hyperlipidemia (CMS/HCC) Type 2 diabetes mellitus without complication, without long-term current use of insulin ([facility]) Vitamin D deficiency Dermoid cyst of right ear Tobacco dependency Tobacco use disorder Hyperlipidemia, unspecified ([facility]/HCC) documented in this encounter [facility] HealthcareEvaluation note* Diagnosis 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 loss- Primary Iron deficiency anemia secondary to blood loss (chronic) Current smoker Other hyperlipidemia (CMS/HCC) Moderate persistent asthma without complication ([facility]/HCC) Type 2 diabetes mellitus without complication, without long-term current use of insulin ([facility]) Screening mammogram, encounter for Recurrent major depressive disorder, in full remission ([facility]) Asthma with COPD (chronic obstructive pulmonary disease) ([facility])- Primary 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) Type 2 diabetes mellitus without complication, without long-term current use of insulin ([facility]/HCC) Primary hypertension ([facility]/HCC) Unspecified essential hypertension Asthma with COPD (chronic obstructive pulmonary disease) ([facility])- Primary Primary hypertension ([facility]/HCC) Unspecified essential hypertension Type 2 diabetes mellitus without complication, without long-term current use of insulin ([facility]/HCC) Primary hypertension ([facility]/H[facility])- Primary Unspecified essential hypertension Asthma with COPD (chronic obstructive pulmonary disease) ([facility]) 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) Other hyperlipidemia ([facility]/HCC) Type 2 diabetes mellitus without complication, without long-term current use of insulin ([facility]) Vitamin D deficiency Dermoid cyst of right ear Tobacco dependency Tobacco use disorder Other bursitis of elbow, left elbow documented in this encounter [facility] HealthcareEvaluation note* Diagnosis 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 loss- Primary Iron deficiency anemia secondary to blood loss (chronic) Current smoker Other hyperlipidemia ([facility]) Moderate persistent asthma without complication ([facility]) Type 2 diabetes mellitus without complication, without long-term current use of insulin ([facility]) Screening mammogram, encounter for Recurrent major depressive disorder, in full remission ([facility]) Asthma with COPD (chronic obstructive pulmonary disease) ([facility])- Primary 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) Type 2 diabetes mellitus without complication, without long-term current use of insulin ([facility]) Primary hypertension ([facility]) Unspecified essential hypertension Asthma with COPD (chronic obstructive pulmonary disease) ([facility])- Primary Primary hypertension ([facility]) Unspecified essential hypertension Type 2 diabetes mellitus without complication, without long-term current use of insulin ([facility]/HCC) Primary hypertension ([facility])- Primary Unspecified essential hypertension Asthma with COPD (chronic obstructive pulmonary disease) ([facility]) 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) Other hyperlipidemia ([facility]/HCC) Type 2 diabetes mellitus without complication, without long-term current use of insulin ([facility]) Vitamin D deficiency Dermoid cyst of right ear Tobacco dependency Tobacco use disorder Primary hypertension ([facility]/HCC)- Primary Unspecified essential hypertension Type 2 diabetes mellitus without complication, without long-term current use of insulin ([facility]) Other hyperlipidemia ([facility]/HCC) Asthma with COPD (chronic obstructive pulmonary disease) ([facility]) Non-recurrent acute serous otitis media of left ear documented in this encounter [facility] HealthcareEvaluation note* Diagnosis Other bursitis of elbow, left elbow documented in this encounter [facility] HealthcareEvaluation note* Diagnosis 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 loss- Primary Iron deficiency anemia secondary to blood loss (chronic) Current smoker Other hyperlipidemia ([facility]) Moderate persistent asthma without complication ([facility]) Type 2 diabetes mellitus without complication, without long-term current use of insulin ([facility]) Screening mammogram, encounter for Recurrent major depressive disorder, in full remission ([facility]) Asthma with COPD (chronic obstructive pulmonary disease) ([facility])- Primary 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) Type 2 diabetes mellitus without complication, without long-term current use of insulin ([facility]) Primary hypertension ([facility]) Unspecified essential hypertension Asthma [facility] COPD (chronic obstructive pulmonary disease) ([facility])- Primary Primary hypertension ([facility]) Unspecified essential hypertension Type 2 diabetes mellitus without complication, without long-term current use of insulin ([facility]) Primary hypertension ([facility])- Primary Unspecified essential hypertension Asthma with COPD (chronic obstructive pulmonary disease) ([facility]) 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) Other hyperlipidemia ([facility]) Type 2 diabetes mellitus without complication, without long-term current use of insulin ([facility]) Vitamin D deficiency Dermoid cyst of right ear Tobacco dependency Tobacco use disorder Primary hypertension ([facility])- Primary Unspecified essential hypertension Type 2 diabetes mellitus without complication, without long-term current use of insulin ([facility]) Other hyperlipidemia ([facility] Asthma [facility] COPD (chronic obstructive pulmonary disease) ([facility]) Non-recurrent acute serous otitis media of left ear Gastro-esophageal reflux disease without esophagitis documented in this encounter [facility] HealthcareEvaluation note* Diagnosis 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 loss- Primary Iron deficiency anemia secondary to blood loss (chronic) Current smoker Other hyperlipidemia ([facility]/HCC) Moderate persistent asthma without complication ([facility]) Type 2 diabetes mellitus without complication, without long-term current use of insulin ([facility]) Screening mammogram, encounter for Recurrent major depressive disorder, in full remission ([facility]) Asthma with COPD (chronic obstructive pulmonary disease) ([facility]/HCC)- Primary Iron 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) Type 2 diabetes mellitus without complication, without long-term current use of insulin ([facility]) Primary hypertension ([facility] Unspecified essential hypertension Asthma with COPD (chronic obstructive pulmonary disease) ([facility])- Primary Primary hypertension ([facility]) Unspecified essential hypertension Type 2 diabetes mellitus without complication, without long-term current use of insulin ([facility]) Primary hypertension ([facility])- Primary Unspecified essential hypertension Asthma with COPD (chronic obstructive pulmonary disease) ([facility]) Iron 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) Other hyperlipidemia ([facility]) Type 2 diabetes mellitus without complication, without long-term current use of insulin ([facility]) Vitamin D deficiency Dermoid cyst of right ear Tobacco dependency Tobacco use disorder Primary hypertension ([facility])- Primary Unspecified essential hypertension Type 2 diabetes mellitus without complication, without long-term current use of insulin ([facility]) Other hyperlipidemia ([facility] Asthma with COPD (chronic obstructive pulmonary disease) ([facility]) Non-recurrent acute serous otitis media of left ear Depression, unspecified ([facility]) documented in this encounter [facility] HealthcareEvaluation note* [...] Diagnosis Type 2 diabetes mellitus without complications ([facility]) Hyperlipidemia, unspecified ([facility]) documented in this encounter [facility] HealthcareEvaluation note* Diagnosis Hyperlipidemia, unspecified ([facility]) Other bursitis of elbow, left elbow Depression, unspecified ([facility]) Type 2 diabetes mellitus without complications ([facility]) documented in this encounter [facility] HealthcareEvaluation note* Diagnosis Iron deficiency anemia due to chronic blood loss- Primary Iron deficiency anemia secondary to blood loss (chronic) Current smoker Other hyperlipidemia ([facility]/HCC) Moderate persistent asthma without complication ([facility]) Type 2 diabetes mellitus without complication, without long-term current use of insulin ([facility]) Screening mammogram, encounter for Recurrent major depressive disorder, in full remission ([facility]/HCC) Asthma with COPD (chronic obstructive pulmonary disease) ([facility])- Primary Iron 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) Type 2 diabetes mellitus without complication, without long-term current use of insulin ([facility]) Primary hypertension ([facility] Unspecified essential hypertension Asthma with COPD (chronic obstructive pulmonary disease) ([facility])- Primary Primary hypertension ([facility]) Unspecified essential hypertension Type 2 diabetes mellitus without complication, without long-term current use of insulin ([facility]/HCC) Primary hypertension ([facility])- Primary Unspecified essential hypertension Asthma with COPD (chronic obstructive pulmonary disease) ([facility]) Iron 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) Other hyperlipidemia ([facility]) Type 2 diabetes mellitus without complication, without long-term current use of insulin ([facility]) Vitamin D deficiency Dermoid cyst of right ear Tobacco dependency Tobacco use disorder Primary hypertension ([facility])- Primary Unspecified essential hypertension Type 2 diabetes mellitus without complication, without long-term current use of insulin ([facility]) Other hyperlipidemia ([facility] Asthma with COPD (chronic obstructive pulmonary disease) ([facility]) Non-recurrent acute serous otitis media of left ear Iron 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) documented in this encounter [facility] HealthcareEvaluation note* Diagnosis Iron deficiency anemia due to chronic blood loss- Primary Iron deficiency anemia secondary to blood loss (chronic) Current smoker Other hyperlipidemia ([facility]) Moderate persistent asthma without complication ([facility]) Type 2 diabetes mellitus without complication, without long-term current use of insulin ([facility]) Screening mammogram, encounter for Recurrent major depressive disorder, in full remission ([facility]) Asthma with COPD (chronic obstructive pulmonary disease) ([facility])- Primary Iron 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) Type 2 diabetes mellitus without complication, without long-term current use of insulin ([facility]) Primary hypertension ([facility] Unspecified essential hypertension Asthma with COPD (chronic obstructive pulmonary disease) ([facility])- Primary Primary hypertension ([facility]) Unspecified essential hypertension Type 2 diabetes mellitus without complication, without long-term current use of insulin ([facility]/HCC) Primary hypertension ([facility])- Primary Unspecified essential hypertension Asthma with COPD (chronic obstructive pulmonary disease) ([facility]) Iron 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) Other hyperlipidemia ([facility]/HCC) Type 2 diabetes mellitus without complication, without long-term current use of insulin ([facility]) Vitamin D deficiency Dermoid cyst of right ear Tobacco dependency Tobacco use disorder Primary hypertension ([facility]/H[facility])- Primary Unspecified essential hypertension Type 2 diabetes mellitus without complication, without long-term current use of insulin ([facility]) Other hyperlipidemia ([facility]) Asthma with COPD (chronic obstructive pulmonary disease) ([facility]) Non-recurrent acute serous otitis media of left ear Asthma with COPD (chronic obstructive pulmonary disease) ([facility]) documented in this encounter [facility] HealthcareEvaluation note* Diagnosis 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 loss- Primary Iron deficiency anemia secondary to blood loss (chronic) Current smoker Other hyperlipidemia ([facility]) Moderate persistent asthma without complication ([facility]) Type 2 diabetes mellitus without complication, without long-term current use of insulin ([facility]) Screening mammogram, encounter for Recurrent major depressive disorder, in full remission ([facility]) Asthma with COPD (chronic obstructive pulmonary disease) ([facility])- Primary Iron 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) Type 2 diabetes mellitus without complication, without long-term current use of insulin ([facility]) Primary hypertension ([facility] Unspecified essential hypertension Asthma with COPD (chronic obstructive pulmonary disease) ([facility])- Primary Primary hypertension ([facility]) Unspecified essential hypertension Type 2 diabetes mellitus without complication, without long-term current use of insulin ([facility]) Primary hypertension ([facility])- Primary Unspecified essential hypertension Asthma with COPD (chronic obstructive pulmonary disease) ([facility]) Iron 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) Other hyperlipidemia ([facility]) Type 2 diabetes mellitus without complication, without long-term current use of insulin ([facility]) Vitamin D deficiency Dermoid cyst of right ear Tobacco dependency Tobacco use disorder Primary hypertension ([facility])- Primary Unspecified essential hypertension Type 2 diabetes mellitus without complication, without long-term current use of insulin ([facility]) Other hyperlipidemia ([facility] Asthma with COPD (chronic obstructive pulmonary disease) ([facility]) Non-recurrent acute serous otitis media of left ear Iron 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) documented in this encounter [facility] HealthcareEvaluation note* Diagnosis Acute hypoxic respiratory failure ([facility])- Primary Chronic obstructive pulmonary disease, unspecified COPD type ([facility]) Influenza A Influenza with other respiratory manifestations Aspiration pneumonia, unspecified aspiration pneumonia type, unspecified laterality, unspecified part of lung ([facility] [place]) Depression, unspecified depression type Cigarette smoker Tobacco use disorder Type 2 diabetes mellitus without complication, without long-term current use of insulin ([facility] [place]) Anxiety Anxiety state, unspecified [facility]* Diagnosis Acute hypoxic respiratory failure ([facility])- Primary Chronic obstructive pulmonary disease, unspecified COPD type ([facility]) Influenza A Influenza with other respiratory manifestations Other abnormalities of gait and mobility [facility]* Diagnosis Acute hypoxic respiratory failure ([facility])- Primary Aspiration pneumonia, unspecified aspiration pneumonia type, unspecified laterality, unspecified part of lung ([facility] [place]) Chronic obstructive pulmonary disease, unspecified COPD type ([facility] [place]) Influenza A Influenza with other respiratory manifestations Type 2 diabetes mellitus without complication, without long-term current use of insulin ([facility] [place]) Other abnormalities of gait and mobility Anxiety Anxiety state, unspecified [facility] Diagnosis Chronic obstructive pulmonary disease, unspecified COPD type ([facility] [place])- Primary Influenza A Influenza with other respiratory manifestations Other abnormalities of gait and mobility Anxiety Anxiety state, unspecified Cigarette smoker Tobacco use disorder [facility] Diagnosis Iron deficiency anemia due to chronic blood loss- Primary Iron deficiency anemia secondary to blood loss (chronic) Current smoker Other hyperlipidemia ([facility] [place] Moderate persistent asthma without complication ([facility] [place]) Type 2 diabetes mellitus without complication, without long-term current use of insulin ([facility] [place] Screening mammogram, encounter for Recurrent major depressive disorder, in full remission ([facility] [place]) Asthma with COPD (chronic obstructive pulmonary disease) ([facility] [place] Primary Iron 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) Type 2 diabetes mellitus without complication, without long-term current use of insulin ([facility] [place] Primary hypertension ([facility] [place]) Unspecified essential hypertension Asthma with COPD (chronic obstructive pulmonary disease) (CMS/HCC)- Primary Primary hypertension (CMS/HCC) Unspecified essential hypertension Type 2 diabetes mellitus without complication, without long-term current use of insulin ([facility]/HCC) Primary hypertension ([facility]/HCC)- Primary Unspecified essential hypertension Asthma with COPD (chronic obstructive pulmonary disease) ([facility]/HCC) Iron 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) Other hyperlipidemia (CMS/HCC) Type 2 diabetes mellitus without complication, without long-term current use of insulin ([facility]) Vitamin D deficiency Dermoid cyst of right ear Tobacco dependency Tobacco use disorder Primary hypertension (CMS/HCC)- Primary Unspecified essential hypertension Type 2 diabetes mellitus without complication, without long-term current use of insulin ([facility]/HCC) Other hyperlipidemia ([facility]/HCC) Asthma with COPD (chronic obstructive pulmonary disease) ([facility]) Non-recurrent acute serous otitis media of left ear Influenza A- Primary Influenza with other respiratory manifestations Chronic obstructive pulmonary disease, unspecified COPD type ([facility]) Acute hypoxic respiratory failure ([facility]) Type 2 diabetes mellitus without complication, without long-term current use of insulin ([facility]) Primary hypertension ([facility]/HCC) Unspecified essential hypertension Benign neoplasm of cranial nerves ([facility]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 ([facility]) documented in this encounter [facility] HealthcareEvaluation [facility]* Diagnosis Iron deficiency anemia due to chronic blood loss- Primary Iron deficiency anemia secondary to blood loss (chronic) Current smoker Other hyperlipidemia (CMS/HCC) Moderate persistent asthma without complication ([facility]) Type 2 diabetes mellitus without complication, without long-term current use of insulin ([facility]) Screening mammogram, encounter for Recurrent major depressive disorder, in full remission ([facility]) Asthma with COPD (chronic obstructive pulmonary disease) ([facility])- Primary Iron 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) Type 2 diabetes mellitus without complication, without long-term current use of insulin ([facility]/HCC) Primary hypertension ([facility]/HCC) Unspecified essential hypertension Asthma with COPD (chronic obstructive pulmonary disease) ([facility]/HCC)- Primary Primary hypertension ([facility]/HCC) Unspecified essential hypertension Type 2 diabetes mellitus without complication, without long-term current use of insulin ([facility]/HCC) Primary hypertension ([facility]/HCC)- Primary Unspecified essential hypertension Asthma with COPD (chronic obstructive pulmonary disease) (CMS/HCC) Iron 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) Other hyperlipidemia ([facility]/HCC) Type 2 diabetes mellitus without complication, without long-term current use of insulin ([facility]) Vitamin D deficiency Dermoid cyst of right ear Tobacco dependency Tobacco use disorder Primary hypertension (CMS/HCC)- Primary Unspecified essential hypertension Type 2 diabetes mellitus without complication, without long-term current use of insulin ([facility]/HCC) Other hyperlipidemia ([facility]/HCC) Asthma with COPD (chronic obstructive pulmonary disease) ([facility]) Non-recurrent acute serous otitis media of left ear Influenza A- Primary Influenza with other respiratory manifestations Chronic obstructive pulmonary disease, unspecified COPD type ([facility]) Acute hypoxic respiratory failure ([facility]) Type 2 diabetes mellitus without complication, without long-term current use of insulin ([facility]/HCC) Primary hypertension ([facility]/HCC) Unspecified essential hypertension Benign neoplasm of cranial nerves ([facility]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 ([facility]) Scalp laceration, sequela- Primary Cigarette nicotine dependence without complication COPD exacerbation ([facility]) Obstructive chronic bronchitis with exacerbation documented in this encounter [facility] HealthcareEvaluation note* Diagnosis Iron deficiency anemia due to chronic blood loss- Primary Iron deficiency anemia secondary to blood loss (chronic) Current smoker Other hyperlipidemia ([facility]/HCC) Moderate persistent asthma without complication ([facility]) Type 2 diabetes mellitus without complication, without long-term current use of insulin ([facility]) Screening mammogram, encounter for Recurrent major depressive disorder, in full remission ([facility]) Asthma with COPD (chronic obstructive pulmonary disease) ([facility])- Primary Iron 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) Type 2 diabetes mellitus without complication, without long-term current use of insulin ([facility]/HCC) Primary hypertension (CMS/HCC) Unspecified essential hypertension Asthma with COPD (chronic obstructive pulmonary disease) ([facility]/HCC)- Primary Primary hypertension ([facility]/HCC) Unspecified essential hypertension Type 2 diabetes mellitus without complication, without long-term current use of insulin ([facility]/HCC) Primary hypertension ([facility]/HCC)- Primary Unspecified essential hypertension Asthma with COPD (chronic obstructive pulmonary disease) ([facility]) Iron 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) Other hyperlipidemia (CMS/HCC) Type 2 diabetes mellitus without complication, without long-term current use of insulin ([facility]) Vitamin D deficiency Dermoid cyst of right ear Tobacco dependency Tobacco use disorder Primary hypertension ([facility])- Primary Unspecified essential hypertension Type 2 diabetes mellitus without complication, without long-term current use of insulin ([facility]) Other hyperlipidemia ([facility]) Asthma with COPD (chronic obstructive pulmonary disease) ([facility]) Non-recurrent acute serous otitis media of left ear Influenza A- Primary Influenza with other respiratory manifestations Chronic obstructive pulmonary disease, unspecified COPD type ([facility]) Acute hypoxic respiratory failure ([facility]) Type 2 diabetes mellitus without complication, without long-term current use of insulin ([facility]) Primary hypertension ([facility]) Unspecified essential hypertension Benign neoplasm of cranial nerves ([facility]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 ([facility]) Scalp laceration, sequela- Primary Cigarette nicotine dependence without complication COPD exacerbation ([facility]) Obstructive chronic bronchitis with exacerbation Type 2 diabetes mellitus without complication, without long-term current use of insulin ([facility])- Primary Chronic obstructive pulmonary disease, unspecified COPD type ([facility] Primary hypertension ([facility]) Unspecified essential hypertension Vitamin D deficiency Iron 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) Cigarette nicotine dependence without complication Recurrent major depressive disorder, in full remission ([facility]) Generalized anxiety disorder ([facility]) Generalized anxiety disorder Screening mammogram, encounter for Other hyperlipidemia ([facility] Acute hypoxic respiratory failure ([facility]) documented in this encounter [facility] HealthcareEvaluation note* Diagnosis Iron deficiency anemia due to chronic blood loss- Primary Iron deficiency anemia secondary to blood loss (chronic) Current smoker Other hyperlipidemia Moderate persistent asthma without complication ([facility]) Type 2 diabetes mellitus without complication, without long-term current use of insulin Screening mammogram, encounter for Recurrent major depressive disorder, in full remission ([facility]) Asthma with COPD (chronic obstructive pulmonary disease) ([facility])- Primary Iron 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) Type 2 diabetes mellitus without complication, without long-term current use of insulin Primary hypertension ([facility]) Unspecified essential hypertension Asthma with COPD (chronic obstructive pulmonary disease) ([facility])- Primary Primary hypertension ([facility]/HCC) Unspecified essential hypertension Type 2 diabetes mellitus without complication, without long-term current use of insulin Primary hypertension ([facility]/HCC)- Primary Unspecified essential hypertension Asthma with COPD (chronic obstructive pulmonary disease) ([facility]) Iron 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) Other hyperlipidemia Type 2 diabetes mellitus without complication, without long-term current use of insulin Vitamin D deficiency Dermoid cyst of right ear Tobacco dependency Tobacco use disorder Primary hypertension ([facility]/HCC)- Primary Unspecified essential hypertension Type 2 diabetes mellitus without complication, without long-term current use of insulin Other hyperlipidemia Asthma with COPD (chronic obstructive pulmonary disease) ([facility]) Non-recurrent acute serous otitis media of left ear Influenza A- Primary Influenza with other respiratory manifestations Chronic obstructive pulmonary disease, unspecified COPD type ([facility]) Acute hypoxic respiratory failure ([facility]) Type 2 diabetes mellitus without complication, without long-term current use of insulin Primary hypertension ([facility]) Unspecified essential hypertension Benign neoplasm of cranial nerves ([facility]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 ([facility]) Scalp laceration, sequela- Primary Cigarette nicotine dependence without complication COPD exacerbation ([facility]) Obstructive chronic bronchitis with exacerbation Type 2 diabetes mellitus without complication, without long-term current use of insulin- Primary Chronic obstructive pulmonary disease, unspecified COPD type ([facility]/HCC) Primary hypertension ([facility]) Unspecified essential hypertension Vitamin D deficiency Iron 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) Cigarette nicotine dependence without complication Recurrent major depressive disorder, in full remission ([facility]) Generalized anxiety disorder ([facility]) Generalized anxiety disorder Screening mammogram, encounter for Other hyperlipidemia Acute hypoxic respiratory failure ([facility]) Elevated TSH Other abnormal blood chemistry documented in this encounter [facility] HealthcareEvaluation note* Diagnosis Iron deficiency anemia due to chronic blood loss- Primary Iron deficiency anemia secondary to blood loss (chronic) Current smoker Other hyperlipidemia Moderate persistent asthma without complication ([facility]) Type 2 diabetes mellitus without complication, without long-term current use of insulin Screening mammogram, encounter for Recurrent major depressive disorder, in full remission ([facility]) Asthma with COPD (chronic obstructive pulmonary disease) ([facility])- Primary Iron 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) Type 2 diabetes mellitus without complication, without long-term current use of insulin Primary hypertension (CMS/HCC) Unspecified essential hypertension Asthma with COPD (chronic obstructive pulmonary disease) ([facility]/HCC)- Primary Primary hypertension ([facility]/HCC) Unspecified essential hypertension Type 2 diabetes mellitus without complication, without long-term current use of insulin Primary hypertension ([facility]/HCC)- Primary Unspecified essential hypertension Asthma with COPD [...] Asthma with COPD (chronic obstructive pulmonary disease) ([facility]) Non-recurrent acute serous otitis media of left ear Influenza A- Primary Influenza with other respiratory manifestations Chronic obstructive pulmonary disease, unspecified COPD type ([facility]) Acute hypoxic respiratory failure ([facility]) Type 2 diabetes mellitus without complication, without long-term current use of insulin Primary hypertension ([facility]/HCC) Unspecified essential hypertension Benign neoplasm of cranial nerves ([facility]/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 ([facility]) Scalp laceration, sequela- Primary Cigarette nicotine dependence without complication COPD exacerbation ([facility]) Obstructive chronic bronchitis with exacerbation Type 2 diabetes mellitus without complication, without long-term current use of insulin- Primary Chronic obstructive pulmonary disease, unspecified COPD type ([facility]/HCC) Primary hypertension ([facility]) Unspecified essential hypertension Vitamin D deficiency Iron 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) Cigarette nicotine dependence without complication Recurrent major depressive disorder, in full remission ([facility]/HCC) Generalized anxiety disorder ([facility]/HCC) Generalized anxiety disorder Screening mammogram, encounter for Other hyperlipidemia Acute hypoxic respiratory failure ([facility]) Iron 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) documented in this encounter [facility] HealthcareEvaluation note* Diagnosis Iron deficiency anemia due to chronic blood loss- Primary Iron deficiency anemia secondary to blood loss (chronic) Current smoker Other hyperlipidemia Moderate persistent asthma without complication ([facility]/HCC) Type 2 diabetes mellitus without complication, without long-term current use of insulin Screening mammogram, encounter for Recurrent major depressive disorder, in full remission (CMS/HCC) Asthma with COPD (chronic obstructive pulmonary disease) (CMS/HCC)- Primary Iron 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) Type 2 diabetes mellitus without complication, without long-term current use of insulin Primary hypertension (CMS/HCC) Unspecified essential hypertension Asthma with COPD (chronic obstructive pulmonary disease) (CMS/HCC)- Primary Primary hypertension (CMS/HCC) Unspecified essential hypertension Type 2 diabetes mellitus without complication, without long-term current use of insulin Primary hypertension ([facility]/HCC)- Primary Unspecified essential hypertension Asthma with COPD [...] with COPD (chronic obstructive pulmonary disease) (CMS/HCC) Non-recurrent acute serous otitis media of left ear Influenza A- Primary Influenza with other respiratory manifestations Chronic obstructive pulmonary disease, unspecified COPD type (CMS/HCC) Acute hypoxic respiratory failure (CMS/HCC) Type 2 diabetes mellitus without complication, without long-term current use of insulin Primary hypertension ([facility]/HCC) Unspecified essential hypertension Benign neoplasm of cranial nerves ([facility]/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 ([facility]) Scalp laceration, sequela- Primary Cigarette nicotine dependence without complication COPD exacerbation ([facility]/HCC) Obstructive chronic bronchitis with exacerbation Type 2 diabetes mellitus without complication, without long-term current use of insulin- Primary Chronic obstructive pulmonary disease, unspecified COPD type (CMS/HCC) Primary hypertension ([facility]/HCC) Unspecified essential hypertension Vitamin D deficiency Iron 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) Cigarette nicotine dependence without complication Recurrent major depressive disorder, in full remission ([facility]/HCC) Generalized anxiety disorder ([facility]/HCC) Generalized anxiety disorder Screening mammogram, encounter for Other hyperlipidemia Acute hypoxic respiratory failure (CMS/HCC) Asthma with COPD (chronic obstructive pulmonary disease) ([facility]/HCC) Chronic obstructive pulmonary disease, unspecified COPD type (CMS/HCC) documented in this encounter [facility] HealthcareEvaluation note* Diagnosis Iron deficiency anemia due to chronic blood loss- Primary Iron deficiency anemia secondary to blood loss (chronic) Current smoker Other hyperlipidemia Moderate persistent asthma without complication ([facility]/HCC) Type 2 diabetes mellitus without complication, without long-term current use of insulin Screening mammogram, encounter for Recurrent major depressive disorder, in full remission ([facility]) Asthma with COPD (chronic obstructive pulmonary disease) ([facility])- Primary Iron 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) Type 2 diabetes mellitus without complication, without long-term current use of insulin Primary hypertension ([facility]) Unspecified essential hypertension Asthma with COPD (chronic obstructive pulmonary disease) ([facility])- Primary Primary hypertension ([facility]) Unspecified essential hypertension Type 2 diabetes mellitus without complication, without long-term current use of insulin Primary hypertension ([facility])- Primary Unspecified essential hypertension Asthma with COPD (chronic obstructive pulmonary disease) ([facility]) Iron 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) Other hyperlipidemia Type 2 diabetes mellitus without complication, without long-term current use of insulin Vitamin D deficiency Dermoid cyst of right ear Tobacco dependency Tobacco use disorder Primary hypertension ([facility])- Primary Unspecified essential hypertension Type 2 diabetes mellitus without complication, without long-term current use of insulin Other hyperlipidemia Asthma with COPD (chronic obstructive pulmonary disease) ([facility]) Non-recurrent acute serous otitis media of left ear Influenza A- Primary Influenza with other respiratory manifestations Chronic obstructive pulmonary disease, unspecified COPD type ([facility]) Acute hypoxic respiratory failure ([facility]) Type 2 diabetes mellitus without complication, without long-term current use of insulin Primary hypertension ([facility]) Unspecified essential hypertension Benign neoplasm of cranial nerves ([facility]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 ([facility]) Scalp laceration, sequela- Primary Cigarette nicotine dependence without complication COPD exacerbation ([facility]) Obstructive chronic bronchitis with exacerbation Type 2 diabetes mellitus without complication, without long-term current use of insulin- Primary Chronic obstructive pulmonary disease, unspecified COPD type ([facility]/HCC) Primary hypertension ([facility]) Unspecified essential hypertension Vitamin D deficiency Iron 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) Cigarette nicotine dependence without complication Recurrent major depressive disorder, in full remission ([facility]) Generalized anxiety disorder ([facility] Generalized anxiety disorder Screening mammogram, encounter for Other hyperlipidemia Acute hypoxic respiratory failure ([facility]) Acquired hypothyroidism ([facility])- Primary Unspecified hypothyroidism documented in this encounter [facility] HealthcareEvaluation note* Diagnosis Iron deficiency anemia due to chronic blood loss- Primary Iron deficiency anemia secondary to blood loss (chronic) Current smoker Other hyperlipidemia Moderate persistent asthma without complication ([facility]) Type 2 diabetes mellitus without complication, without long-term current use of insulin Screening mammogram, encounter for Recurrent major depressive disorder, in full remission ([facility]) Asthma with COPD (chronic obstructive pulmonary disease) ([facility])- Primary Iron 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) Type 2 diabetes mellitus without complication, without long-term current use of insulin Primary hypertension ([facility]) Unspecified essential hypertension Asthma with COPD (chronic obstructive pulmonary disease) ([facility])- Primary Primary hypertension ([facility]) Unspecified essential hypertension Type 2 diabetes mellitus without complication, without long-term current use of insulin Primary hypertension ([facility])- Primary Unspecified essential hypertension Asthma with COPD (chronic obstructive pulmonary disease) ([facility]) Iron 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) Other hyperlipidemia Type 2 diabetes mellitus without complication, without long-term current use of insulin Vitamin D deficiency Dermoid cyst of right ear Tobacco dependency Tobacco use disorder Primary hypertension ([facility])- Primary Unspecified essential hypertension Type 2 diabetes mellitus without complication, without long-term current use of insulin Other hyperlipidemia Asthma with COPD (chronic obstructive pulmonary disease) ([facility]) Non-recurrent acute serous otitis media of left ear Influenza A- Primary Influenza with other respiratory manifestations Chronic obstructive pulmonary disease, unspecified COPD type ([facility]) Acute hypoxic respiratory failure ([facility]) Type 2 diabetes mellitus without complication, without long-term current use of insulin Primary hypertension ([facility]) Unspecified essential hypertension Benign neoplasm of cranial nerves ([facility]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 ([facility]) Scalp laceration, sequela- Primary Cigarette nicotine dependence without complication COPD exacerbation ([facility]) Obstructive chronic bronchitis with exacerbation Type 2 diabetes mellitus without complication, without long-term current use of insulin- Primary Chronic obstructive pulmonary disease, unspecified COPD type ([facility]) Primary hypertension ([facility]/HCC) Unspecified essential hypertension Vitamin D deficiency Iron 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) Cigarette nicotine dependence without complication Recurrent major depressive disorder, in full remission ([facility]/HCC) Generalized anxiety disorder ([facility]) Generalized anxiety disorder Screening mammogram, encounter for Other hyperlipidemia Acute hypoxic respiratory failure ([facility]) Depression, unspecified ([facility]) documented in this encounter [facility] HealthcareEvaluation note* Diagnosis Iron deficiency anemia due to chronic blood loss- Primary Iron deficiency anemia secondary to blood loss (chronic) Current smoker Other hyperlipidemia Moderate persistent asthma without complication ([facility]) Type 2 diabetes mellitus without complication, without long-term current use of insulin Screening mammogram, encounter for Recurrent major depressive disorder, in full remission ([facility]) Asthma with COPD (chronic obstructive pulmonary disease) ([facility])- Primary Iron 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) Type 2 diabetes mellitus without complication, without long-term current use of insulin Primary hypertension ([facility]) Unspecified essential hypertension Asthma with COPD (chronic obstructive pulmonary disease) ([facility])- Primary Primary hypertension ([facility]) Unspecified essential hypertension Type 2 diabetes mellitus without complication, without long-term current use of insulin Primary hypertension ([facility])- Primary Unspecified essential hypertension Asthma with COPD (chronic obstructive pulmonary disease) ([facility]) Iron 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) Other hyperlipidemia Type 2 diabetes mellitus without complication, without long-term current use of insulin Vitamin D deficiency Dermoid cyst of right ear Tobacco dependency Tobacco use disorder Primary hypertension ([facility])- Primary Unspecified essential hypertension Type 2 diabetes mellitus without complication, without long-term current use of insulin Other hyperlipidemia Asthma with COPD (chronic obstructive pulmonary disease) ([facility]) Non-recurrent acute serous otitis media of left ear Influenza A- Primary Influenza with other respiratory manifestations Chronic obstructive pulmonary disease, unspecified COPD type ([facility]) Acute hypoxic respiratory failure ([facility]) Type 2 diabetes mellitus without complication, without long-term current use of insulin Primary hypertension ([facility]) Unspecified essential hypertension Benign neoplasm of cranial nerves ([facility]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 ([facility]) Scalp laceration, sequela- Primary Cigarette nicotine dependence without complication COPD exacerbation (CMS/HCC) Obstructive chronic bronchitis with exacerbation Type 2 diabetes mellitus without complication, without long-term current use of insulin- Primary Chronic obstructive pulmonary disease, unspecified COPD type (CMS/HCC) Primary hypertension (CMS/HCC) Unspecified essential hypertension Vitamin D deficiency Iron 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) Cigarette nicotine dependence without complication Recurrent major depressive disorder, in full remission (CMS/HCC) Generalized anxiety disorder (CMS/HCC) Generalized anxiety disorder Screening mammogram, encounter for Other hyperlipidemia Acute hypoxic respiratory failure (CMS/HCC) Osteoarthritis, unspecified osteoarthritis type, unspecified site- Primary documented in this encounter [facility] HealthcareEvaluation note* Diagnosis Iron deficiency anemia due to chronic blood loss- Primary Iron deficiency anemia secondary to blood loss (chronic) Current smoker Other hyperlipidemia Moderate persistent asthma without complication (HCC) Type 2 diabetes mellitus without complication, without long-term current use of insulin (HCC) Screening mammogram, encounter for Recurrent major depressive disorder, in full remission Asthma with COPD (chronic obstructive pulmonary disease) (HCC)- Primary Iron 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) Type 2 diabetes mellitus without complication, without long-term current use of insulin (HCC) Primary hypertension Unspecified essential hypertension Asthma with COPD (chronic obstructive pulmonary disease) (HCC)- Primary Primary hypertension Unspecified essential hypertension Type 2 diabetes mellitus without complication, without long-term current use of insulin (HCC) Primary hypertension- Primary Unspecified essential hypertension Asthma with COPD (chronic obstructive pulmonary disease) (HCC) Iron 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) Other hyperlipidemia Type 2 diabetes mellitus without complication, without long-term current use of insulin (HCC) Vitamin D deficiency Dermoid cyst of right ear Tobacco dependency Tobacco use disorder Primary hypertension- Primary Unspecified essential hypertension Type 2 diabetes mellitus without complication, without long-term current use of insulin (HCC) Other hyperlipidemia Asthma with COPD (chronic obstructive pulmonary disease) (HCC) Non-recurrent acute serous otitis media of left ear Influenza A- Primary Influenza with other respiratory manifestations Chronic obstructive pulmonary disease, unspecified COPD type (HCC) Acute hypoxic respiratory failure (HCC) Type 2 diabetes mellitus without complication, without long-term current use of insulin (HCC) Primary hypertension Unspecified essential hypertension Benign neoplasm of cranial nerves (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 (HCC) Scalp laceration, sequela- Primary Cigarette nicotine dependence without complication COPD exacerbation (HCC) Obstructive chronic bronchitis with exacerbation Type 2 diabetes mellitus without complication, without long-term current use of insulin (HCC)- Primary Chronic obstructive pulmonary disease, unspecified COPD type (HCC) Primary hypertension Unspecified essential hypertension Vitamin D deficiency Iron 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) Cigarette nicotine dependence without complication Recurrent major depressive disorder, in full remission Generalized anxiety disorder Generalized anxiety disorder Screening mammogram, encounter for Other hyperlipidemia Acute hypoxic respiratory failure (HCC) Asthma with COPD (chronic obstructive pulmonary disease) (HCC) documented in this encounter [facility] HealthcareEvaluation note* Diagnosis Iron deficiency anemia due to chronic blood loss- Primary Iron deficiency anemia secondary to blood loss (chronic) Current smoker Other hyperlipidemia Moderate persistent asthma without complication (HCC) Type 2 diabetes mellitus without complication, without long-term current use of insulin (HCC) Screening mammogram, encounter for Recurrent major depressive disorder, in full remission Asthma with COPD (chronic obstructive pulmonary disease) (HCC)- Primary Iron 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) Type 2 diabetes mellitus without complication, without long-term current use of insulin (HCC) Primary hypertension Unspecified essential hypertension Asthma with COPD (chronic obstructive pulmonary disease) (HCC)- Primary Primary hypertension Unspecified essential hypertension Type 2 diabetes mellitus without complication, without long-term current use of insulin (HCC) Primary hypertension- Primary Unspecified essential hypertension Asthma with COPD (chronic obstructive pulmonary disease) (HCC) Iron 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) Other hyperlipidemia Type 2 diabetes mellitus without complication, without long-term current use of insulin (HCC) Vitamin D deficiency Dermoid cyst of right ear Tobacco dependency Tobacco use disorder Primary hypertension- Primary Unspecified essential hypertension Type 2 diabetes mellitus without complication, without long-term current use of insulin (HCC) Other hyperlipidemia Asthma with COPD (chronic obstructive pulmonary disease) (HCC) Non-recurrent acute serous otitis media of left ear Influenza A- Primary Influenza with other respiratory manifestations Chronic obstructive pulmonary disease, unspecified COPD type (HCC) Acute hypoxic respiratory failure (HCC) Type 2 diabetes mellitus without complication, without long-term current use of insulin (HCC) Primary hypertension Unspecified essential hypertension Benign neoplasm of cranial nerves (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 (HCC) Scalp laceration, sequela- Primary Cigarette nicotine dependence without complication COPD exacerbation (HCC) Obstructive chronic bronchitis with exacerbation Type 2 diabetes mellitus without complication, without long-term current use of insulin (HCC)- Primary Chronic obstructive pulmonary disease, unspecified COPD type (HCC) Primary hypertension Unspecified essential hypertension Vitamin D deficiency Iron 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) Cigarette nicotine dependence without complication Recurrent major depressive disorder, in full remission Generalized anxiety disorder Generalized anxiety disorder Screening mammogram, encounter for Other hyperlipidemia Acute hypoxic respiratory failure (HCC) Primary hypertension- Primary Unspecified essential hypertension Hyperlipidemia, unspecified Vitamin D deficiency Type 2 diabetes mellitus without complications (HCC) Gastro-esophageal reflux disease without esophagitis Depression, unspecified documented in this encounter [facility] HealthcareEvaluation note* Diagnosis Iron deficiency anemia due to chronic blood loss- Primary Iron deficiency anemia secondary to blood loss (chronic) Current smoker Other hyperlipidemia Moderate persistent asthma without complication (HCC) Type 2 diabetes mellitus without complication, without long-term current use of insulin (HCC) Screening mammogram, encounter for Recurrent major depressive disorder, in full remission Asthma with COPD (chronic obstructive pulmonary disease) (HCC)- Primary Iron 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) Type 2 diabetes mellitus without complication, without long-term current use of insulin (HCC) Primary hypertension Unspecified essential hypertension Asthma with COPD (chronic obstructive pulmonary disease) (HCC)- Primary Primary hypertension Unspecified essential hypertension Type 2 diabetes mellitus without complication, without long-term current use of insulin (HCC) Primary hypertension- Primary Unspecified essential hypertension Asthma with COPD (chronic obstructive pulmonary disease) (HCC) Iron 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) Other hyperlipidemia Type 2 diabetes mellitus without complication, without long-term current use of insulin (HCC) Vitamin D deficiency Dermoid cyst of right ear Tobacco dependency Tobacco use disorder Primary hypertension- Primary Unspecified essential hypertension Type 2 diabetes mellitus without complication, without long-term current use of insulin (HCC) Other hyperlipidemia Asthma with COPD (chronic obstructive pulmonary disease) (HCC) Non-recurrent acute serous otitis media of left ear Influenza A- Primary Influenza with other respiratory manifestations Chronic obstructive pulmonary disease, unspecified COPD type (HCC) Acute hypoxic respiratory failure (HCC) Type 2 diabetes mellitus without complication, without long-term current use of insulin (HCC) Primary hypertension Unspecified essential hypertension Benign neoplasm of cranial nerves (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 (HCC) Scalp laceration, sequela- Primary Cigarette nicotine dependence without complication COPD exacerbation (HCC) Obstructive chronic bronchitis with exacerbation Type 2 diabetes mellitus without complication, without long-term current use of insulin (HCC)- Primary Chronic obstructive pulmonary disease, unspecified COPD type (HCC) Primary hypertension Unspecified essential hypertension Vitamin D deficiency Iron 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) Cigarette nicotine dependence without complication Recurrent major depressive disorder, in full remission Generalized anxiety disorder Generalized anxiety disorder Screening mammogram, encounter for Other hyperlipidemia Acute hypoxic respiratory failure (HCC) Chronic obstructive pulmonary disease, unspecified COPD type (HCC) documented in this encounter [facility] HealthcareEvaluation note* Diagnosis Iron deficiency anemia due to chronic blood loss- Primary Iron deficiency anemia secondary to blood loss (chronic) Current smoker Other hyperlipidemia Moderate persistent asthma without complication (HCC) Type 2 diabetes mellitus without complication, without long-term current use of insulin (HCC) Screening mammogram, encounter for Recurrent major depressive disorder, in full remission Asthma with COPD (chronic obstructive pulmonary disease) (HCC)- Primary Iron 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) Type 2 diabetes mellitus without complication, without long-term current use of insulin (HCC) Primary hypertension Unspecified essential hypertension Asthma with COPD (chronic obstructive pulmonary disease) (HCC)- Primary Primary hypertension Unspecified essential hypertension Type 2 diabetes mellitus without complication, without long-term current use of insulin (HCC) Primary hypertension- Primary Unspecified essential hypertension Asthma with COPD (chronic obstructive pulmonary disease) (HCC) Iron 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) Other hyperlipidemia Type 2 diabetes mellitus without complication, without long-term current use of insulin (HCC) Vitamin D deficiency Dermoid cyst of right ear Tobacco dependency Tobacco use disorder Primary hypertension- Primary Unspecified essential hypertension Type 2 diabetes mellitus without complication, without long-term current use of insulin (HCC) Other hyperlipidemia Asthma with COPD (chronic obstructive pulmonary disease) (HCC) Non-recurrent acute serous otitis media of left ear Influenza A- Primary Influenza with other respiratory manifestations Chronic obstructive pulmonary disease, unspecified COPD type (HCC) Acute hypoxic respiratory failure (HCC) Type 2 diabetes mellitus without complication, without long-term current use of insulin (HCC) Primary hypertension Unspecified essential hypertension Benign neoplasm of cranial nerves (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 (HCC) Scalp laceration, sequela- Primary Cigarette nicotine dependence without complication COPD exacerbation (HCC) Obstructive chronic bronchitis with exacerbation Type 2 diabetes mellitus without complication, without long-term current use of insulin (HCC)- Primary Chronic obstructive pulmonary disease, unspecified COPD type (HCC) Primary hypertension Unspecified essential hypertension Vitamin D deficiency Iron 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) Cigarette nicotine dependence without complication Recurrent major depressive disorder, in full remission Generalized anxiety disorder Generalized anxiety disorder Screening mammogram, encounter for Other hyperlipidemia Acute hypoxic respiratory failure (HCC) Iron deficiency- Primary Disorders of iron metabolism Abnormal CBC Other abnormal blood chemistry documented in this encounter [facility] HealthcareEvaluation note* Diagnosis Iron deficiency anemia due to chronic blood loss- Primary Iron deficiency anemia secondary to blood loss (chronic) Current smoker Other hyperlipidemia Moderate persistent asthma without complication (HCC) Type 2 diabetes mellitus without complication, without long-term current use of insulin (HCC) Screening mammogram, encounter for Recurrent major depressive disorder, in full remission Asthma with COPD (chronic obstructive pulmonary disease) (HCC)- Primary Iron 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) Type 2 diabetes mellitus without complication, without long-term current use of insulin (HCC) Primary hypertension Unspecified essential hypertension Asthma with COPD (chronic obstructive pulmonary disease) (HCC)- Primary Primary hypertension Unspecified essential hypertension Type 2 diabetes mellitus without complication, without long-term current use of insulin (HCC) Primary hypertension- Primary Unspecified essential hypertension Asthma with COPD (chronic obstructive pulmonary disease) (HCC) Iron 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) Other hyperlipidemia Type 2 diabetes mellitus without complication, without long-term current use of insulin (HCC) Vitamin D deficiency Dermoid cyst of right ear Tobacco dependency Tobacco use disorder Primary hypertension- Primary Unspecified essential hypertension Type 2 diabetes mellitus without complication, without long-term current use of insulin (HCC) Other hyperlipidemia Asthma with COPD (chronic obstructive pulmonary disease) (HCC) Non-recurrent acute serous otitis media of left ear Influenza A- Primary Influenza with other respiratory manifestations Chronic obstructive pulmonary disease, unspecified COPD type (HCC) Acute hypoxic respiratory failure (HCC) Type 2 diabetes mellitus without complication, without long-term current use of insulin (HCC) Primary hypertension Unspecified essential hypertension Benign neoplasm of cranial nerves (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 (HCC) Scalp laceration, sequela- Primary Cigarette nicotine dependence without complication COPD exacerbation (HCC) Obstructive chronic bronchitis with exacerbation Type 2 diabetes mellitus without complication, without long-term current use of insulin (HCC)- Primary Chronic obstructive pulmonary disease, unspecified COPD type (HCC) Primary hypertension Unspecified essential hypertension Vitamin D deficiency Iron 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) Cigarette nicotine dependence without complication Recurrent major depressive disorder, in full remission Generalized anxiety disorder Generalized anxiety disorder Screening mammogram, encounter for Other hyperlipidemia Acute hypoxic respiratory failure (HCC) Edema of both lower legs- Primary Primary hypertension Unspecified essential hypertension Chronic obstructive pulmonary disease, unspecified COPD type (HCC) Type 2 diabetes mellitus without complication, without long-term current use of insulin (HCC) Cigarette nicotine dependence without complication Depression, unspecified Generalized anxiety disorder Generalized anxiety disorder Cellulitis of left lower extremity documented in this encounter [facility] HealthcareHospital Discharge instructions No data available for this section [facility] filed[facility] this encounter [facility]Not on filedocumented in this encounter [facility] SystemInstructionsNot on filedocumented in this encounter [facility] SystemProgress note No data available for this section [facility] HospitalReason for referral (narrative)* Consultation (Routine) - Pending Review Specialty Diagnoses / Procedures Referred By Marilia underwood Referred To Contact Gastroenterology Diagnoses Iron deficiency anemia due to chronic blood loss Procedures NM OFFICE/OUTPATIENT NEW HIGH MDM 60 MINUTES Daniel Cardoso NP [address] [place] [phone] Referral ID Status Reason Start Date Expiration Date Visits Requested Visits Authorized [id number] Pending Review Specialty Services Required 07/07/2024 01/03/2025 [...] +, Exacerbation COPD December 13, 2024 12:54pm [facility] 12/09January 04, 2025 8:55am Reason for Visit Admit Date Acute hypoxic respiratory failure r 2024 9:05pm COPD exacerbation December 09, 2024 [...] AUTHOR AUTHOR'S ORGANIZ ATION 12/17/2023 [facility] DATE CREATED AUTHOR AUTHOR'S ORGANIZ ATION 12/17/2024 [facility] DATE CREATED AUTHOR AUTHOR'S ORGANIZ ATION 03/24/2025 [facility] DATE CREATED AUTHOR AUTHOR'S ORGANIZ ATION 06/28/2025 [facility] dical Specialists EPIC Patient Care team informatio n (unrecognized section and content) 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 Specialty Start Date End Date Shaikh Sánchez MD [address] [place] [address] PCP - Linda MORALES 11/14/23 Shaikh Sánchez MD [address] [place] [address] PCP - General Internal Medicine 01/16/24 Zamzam Wheeler NP [address] [place] [address] Nurse Practitioner Internal Medicine 01/16/24 Kirstin Carreon LPN Licensed Practical Nurse Family Medicine 07/27/24 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 Specialty Start Date End Date Shaikh áSnchez MD [address] [place] [address] PCP - Linda MORALES 11/14/23 Ian Soares MD [address] [place] [address] PCP - General Family Medicine 09/11/24 Zamzam Wheeler PIPELINE GANG SUPERVISOR [address] [place] [address] Nurse Practitioner Internal Medicine 01/16/24 Kirstin Carreon LPN Licensed Practical Nurse Family Medicine 07/27/24 Daniel Cardoso, GREG [address] [place] [address] Nurse Practitioner Family Medicine 09/11/24 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 Specialty Start Date End Date Shaikh Sánchez MD [address] [place] [address] PCP - Linda MORALES 11/14/23 Ian Soares MD [address] [place] [address] PCP - General Family Medicine 09/11/24 Zamzam Wheeler NP [address] [place] [address] Nurse Practitioner Internal Medicine 01/16/24 Kirstin Carreon LPN Licensed Practical Nurse Family Medicine 07/27/24 Daniel Cardoso, GREG [address] [place] [address] Nurse Practitioner Family Medicine 09/11/24 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 Specialty Start Date End Date Shaikh Sánchez MD [address] [place] [address] PCP - Linda MORALES 11/14/23 Ian Soares MD [address] [place] [address] PCP - General Family Medicine 09/11/24 Zamzam Wheeler NP [address] [place] [address] Nurse Practitioner Internal Medicine 01/16/24 Kirstin Carreon LPN Licensed Practical Nurse Family Medicine 07/27/24 Daniel Cardoso, GREG [address] [place] [address] Nurse Practitioner Family Medicine 09/11/24 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 Specialty Start Date End Date Shaikh Sánchez MD [address] [place] [address] PCP - [place] 11/14/23 Ian Soares MD [address] [place] [address] PCP - General Family Medicine 09/11/24 Zamzam Wheeler NP [address] [place] [address] Nurse Practitioner Internal Medicine 01/16/24 Kirstin Carreon LPN Licensed Practical Nurse Family Medicine 07/27/24 Daniel Cardoso NP [address] [place] [address] Nurse Practitioner Family Medicine 09/11/24 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 Specialty Start Date End Date Shaikh Sánchez MD [address] [place] [address] PCP - Linda MORALES 11/14/23 Shaikh Sánchez MD [address] [place] [address] PCP - General Internal Medicine 01/16/24 Zamzam Wheeler, GREG [address] [place], [place] [address] Nurse Practitioner Internal Medicine 01/16/24 Gustavo Romero LPN Licensed Practical Nurse Family Medicine 07/04/24 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 Specialty Start Date End Date Shaikh Sánchez MD [address] [place] [address] PCP - Linda MORALES 11/14/23 Ian Soares MD [address] [place] [address] PCP - General Family Medicine 09/11/24 Zamzam Wheeler PIPELINE GANG SUPERVISOR [address] [place] [address] Nurse Practitioner Internal Medicine 01/16/24 Daniel Cardoso NP [address] [place] [address] Nurse Practitioner Family Medicine 09/11/24 Artuor Chanel MA Family Medicine 09/24/24 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 Specialty Start Date End Date Shaikh Sánchez MD [address] [place] [address] PCP - Linda MORALES 11/14/23 Shaikh Sánchez MD [address] [place] [address] PCP - General Internal Medicine 01/16/24 Zamzam Wheeler PIPELINE GANG SUPER[employer]OR [address] [place] [address] Nurse Practitioner Internal Medicine 01/16/24 Gustavo Romero LPN Licensed Practical Nurse Family Medicine 07/04/24 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 Specialty Start Date End Date Shaikh Sánchez MD [address] [place] [address] PCP Shayy Mckeon MA 11/14/23 Shaikh Sánchez MD [address] [place] [address] PCP - General Internal Medicine 01/16/24 Zamzam Wheeler PIPELINE GANG SUPERVISOR [address] [place] [address] Nurse Practitioner Internal Medicine 01/16/24 Gustavo Romero LPN Licensed Practical Nurse Family Medicine 07/04/24 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 Specialty Start Date End Date Shaikh Sánchez MD [address] [place] [address] SHIVAM Mckeon MA 11/14/23 Shaikh Sánchez MD [address] [place] [address] PCP - General Internal Medicine 01/16/24 Zamzam Wheeler NP [address] [place] [address] Nurse Practitioner Internal Medicine 01/16/24 Gustavo Romero LPN Licensed Practical Nurse Family Medicine 07/04/24 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 Specialty Start Date End Date Shaikh Sánchez MD [address] [place] [address] PCP - Linda MORALES 11/14/23 Shaikh Sánchez MD [address] [place] [address] PCP - General Internal Medicine 01/16/24 Zamzam Wheeler NP [address] [place] [address] Nurse Practitioner Internal Medicine 01/16/24 Kirstin Carreon LPN Licensed Practical Nurse Family Medicine 07/27/24 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 Specialty Start Date End Date Shaikh Sánchez MD [address] [place] [address] PCP - Linda MORALES 11/14/23 Ian Soares MD [address] [place] [address] PCP - General Family Medicine 09/11/24 Zamzam Wheeler NP [address] [place] [address] Nurse Practitioner Internal Medicine 01/16/24 Daniel Cardoso, GREG [address] [place] [address] Nurse Practitioner Family Medicine 09/11/24 Arturo Chanel MA Family Medicine 09/24/24 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 Specialty Start Date End Date Shaikh Sánchez MD [address] [place] [address] PCP - Linda MORALES 11/14/23 Ian Soares MD [address] [place] [address] PCP - General Family Medicine 09/11/24 Zamzam Wheeler NP [address] [place] [address] Nurse Practitioner Internal Medicine 01/16/24 Daniel Cardoso NP [address] [place] [address] Nurse Practitioner Family Medicine 09/11/24 Arturo Chanel MA Family Medicine 09/24/24 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 Specialty Start Date End Date Shaikh Sánchez MD [address] [place] [address] PCP - Linda MORALES 11/14/23 Ian Soares MD [address] [place] [address] PCP - General Family Medicine 09/11/24 Zamzam Wheeler NP [address] [place] [address] Nurse Practitioner Internal Medicine 01/16/24 Daniel Cardoso NP [address] [place] [address] Nurse Practitioner Family Medicine 09/11/24 Arturo Chanel MA Family Medicine 09/24/24 Team Status: Active Member Role Status Dates Daniel Cardoso PIPELINE GANG SUPERVISOR-C Primary Care Provider Ac tive Team Status: Inactive Member Role Status Dates Daniel Cardoso NP-C Primary Care Provider Ac tive Start: December 09, 2024 End: December 14, 2024 Soco Beasley MD Admit Provider Active Start: J anuary 2024 End: December 14, 2024 Daniel [...] Daniel Garza MD Other Provider Active Start: katy 2024 Team Status: Active Member Role Status Dates Daniel Cardoso PIPELINE GANG SUPERVISOR-C Primary Care Provider Active Start: November Soco Beasley MD Admit Provider Active Start: J anuary 2024 Daniel Garza MD Other Provider Active Start: katy 2024 Cecilia Ruiz MD Other Provider Active Start: J anuary 2024 Suzette Ng MD Other Provider Active Start: katy 2024 Ryan Arshad MD Other Provider Active Start: J anuary 2024 Ilana Mendoza APRN Other Provider Active St art: December 13, 2024 Hubert Mcguire Jr, DO Other Provider Active S tart: December 13, 2024 Dave Bazan MD Attending Pr ovider, Other Provider Active Start: December 13, 2024 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 Specialty Start Date End Date Gianna Isabel MD PCP - General Family Medicine 02/07/17 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 Specialty Start Date End Date Gianna Isabel MD PCP - General Family Medicine 02/07/17 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 Specialty Start Date End Date Gianna Isabel MD PCP - General Family Medicine 02/07/17 Team Status: Inactive Member Role Status Dates Daniel Cardoso NP-C Primary Care Provider Ac tive Start: December 09, 2024 End: December 14, 2024 Soco Beasley MD Admit Provider Active Start: J anuary 2024 End: December 14, 2024 Daniel [...] Active Member Role Status Dates Daniel Cardoso PIPELINE GANG SUPERVISOR-C Primary Care Provider Active Start: November Soco [...] January 04, 2025 End: January 04, 2025 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 Specialty Start Date End Date Ian Soares MD [address] [place] [address] PCP - General Family Medicine 09/11/24 Zamzam Wheeler NP Nurse Practitioner Internal Medicine 01/16/24 Daniel Cardoso NP [address] [place] [address] Nurse Practitioner Family Medicine 09/11/24 Arturo Chanel MA Family Medicine 09/24/24 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 Specialty Start Date End Date Ian Soares MD [address] [place] [address] PCP - General Family Medicine 09/11/24 Zamzam Wheeler NP Nurse Practitioner Internal Medicine 01/16/24 Daniel Cardoso NP [address] [place] [address] Nurse Practitioner Family Medicine 09/11/24 Arturo Chanel MA Family Medicine 09/24/24 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 Specialty Start Date End Date Shaikh Sánchez MD [address] [place] [address] PCP - Linda MORALES 11/14/23 Ian Soares MD [address] [place] [address] PCP - General Family Medicine 09/11/24 Zamzam Wheeler, PIPELINE GANG SUPERVISOR [address] [place] [address] Nurse Practitioner Internal Medicine 01/16/24 Daniel Cardoso NP [address] [place] [address] Nurse Practitioner Family Medicine 09/11/24 Arturo Chanel MA Family Medicine 09/24/24 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 Specialty Start Date End Date Shaikh Sánchez MD [address] [place] [address] PCP - Linda [place] 11/14/23 Ian Soares MD [address] [place] [address] PCP - General Family Medicine 09/11/24 Zamzam Wheeler, PIPELINE GANG SUPERVISOR [address] [place] [address] Nurse Practitioner Internal Medicine 01/16/24 Daniel Cardoso NP [address] [place] [address] Nurse Practitioner Family Medicine 09/11/24 Arturo Chanel MA Family Medicine 09/24/24 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 Specialty Start Date End Date Shaikh Sánchez MD [address] [place] [address] PCP - Linda [place] 11/14/23 Ian Soares MD [address] [place] [address] PCP - General Family Medicine 09/11/24 Zamzam Wheeler NP [address] [place] [address] Nurse Practitioner Internal Medicine 01/16/24 Arturo Chanel MA Family Medicine 09/24/24 La Pack NP [address] [place] [address] Nurse Practitioner Family Medicine 02/06/25 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 Specialty Start Date End Date Shaikh Sánchez MD [address] [place] [address] PCP - Linda [place] 11/14/23 Ian Soares MD [address] [place] [address] PCP - General Family Medicine 09/11/24 Zamzam Wheeler PIPELINE GANG SUPERVISOR [address] [place] [address] Nurse Practitioner Internal Medicine 01/16/24 Arturo Chanel MA Family Medicine 09/24/24 La Pack NP [address] [place] [address] Nurse Practitioner Family Medicine 02/06/25 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 Specialty Start Date End Date Shaikh Sánchez MD [address] [place] [address] PCP - [place] 11/14/23 Ian Soares MD [address] [place] [address] PCP - General Family Medicine 09/11/24 Zamzam Wheeler NP [address] [place] [address] Nurse Practitioner Internal Medicine 01/16/24 Arturo Chanel MA Family Medicine 09/24/24 La Pack NP [address] [place] [address] Nurse Practitioner Family Medicine 02/06/25 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 Specialty Start Date End Date Shaikh Sánchez MD [address] [place] [address] PCP - Linda [place] 11/14/23 Ian Soares MD [address] [place] [address] PCP - General Family Medicine 09/11/24 Zamzam Wheeler NP [address] [place] [address] Nurse Practitioner Internal Medicine 01/16/24 Arturo Chanel MA Family Medicine 09/24/24 La Pack NP [address] [place] [address] Nurse Practitioner Family Medicine 02/06/25 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 Specialty Start Date End Date Shaikh Sánchez MD [address] [place] [address] PCP - Linda [place] 11/14/23 Ian Soares MD [address] [place] [address] PCP - General Family Medicine 09/11/24 Zamzam Wheeler NP [address] [place] [address] Nurse Practitioner Internal Medicine 01/16/24 Arturo Chanel MA Family Medicine 09/24/24 La Pack NP [address] [place] [address] Nurse Practitioner Family Medicine 02/06/25 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 Specialty Start Date End Date Shaikh Sánchez MD [address] [place] [address] PCP - Linda MORALES 11/14/23 Ian Soares MD [address] [place] [address] PCP - General Family Medicine 09/11/24 Zamzam Wheeler NP [address] [place] [address] Nurse Practitioner Internal Medicine 01/16/24 Arturo Chanel MA Family Medicine 09/24/24 La Pack, GREG [address] [place] [address] Nurse Practitioner Family Medicine 02/06/25 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 Specialty Start Date End Date Shaikh Sánchez MD [address] [place] [address] PCP - Linda [place] 11/14/23 Ian Soares MD [address] [place] [address] PCP - General Family Medicine 09/11/24 Zamzam Wheeler NP [address] [place] [address] Nurse Practitioner Internal Medicine 01/16/24 Arturo Chanel MA Family Medicine 09/24/24 La Pack NP [address] [place] [address] Nurse Practitioner Family Medicine 02/06/25 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 Specialty Start Date End Date Shaikh Sánchez MD [address] [place] [address] PCP - Linda MORALES 11/14/23 Ian Soares MD [address] [place] [address] PCP - General Family Medicine 09/11/24 Zamzam Wheeler NP [address] [place] [address] Nurse Practitioner Internal Medicine 01/16/24 Arturo Chanel MA [address] [place] [address] Family Medicine 09/24/24 La Pack NP [address] [place] [address] Nurse Practitioner Family Medicine 02/06/25 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 Specialty Start Date End Date Shaikh Sánchez MD [address] [place] [address] PCP - [facility] 11/14/23 Ian Soares MD [address] [place] [address] PCP - General Family Medicine 09/11/24 Zamzam Wheeler NP [address] [place] [address] Nurse Practitioner Internal Medicine 01/16/24 Arturo Chanel MA [address] [place] [address] Family Medicine 09/24/24 La Pack NP [address] [place] [address] Nurse Practitioner Family Medicine 02/06/25 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 Specialty Start Date End Date Fawwad, Parada, MD [address] [place] [address] PCP - Linda MORALES 11/14/23 Ian Soares MD [address] [place] [address] PCP - General Family Medicine 09/11/24 Zamzam Wheeler, PIPELINE GANG SUPERVISOR [address] [place] [address] Nurse Practitioner Internal Medicine 01/16/24 Arturo Chanel MA [address] [place] [address] Family Medicine 09/24/24 La Pack NP [address] [place] [address] Nurse Practitioner Family Medicine 02/06/25 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 Specialty Start Date End Date Shaikh Sánchez MD [address] [place] [address] PCP - Linda MORALES 11/14/23 Ian Soares MD [address] [place] [address] PCP - General Family Medicine 09/11/24 Zamzam Wheeler, PIPELINE GANG SUPERVISOR [address] [place] [address] Nurse Practitioner Internal Medicine 01/16/24 Arturo Chanel IA [address] [place] [address] Family Medicine 09/24/24 La Pack NP [address] [place] [address] Nurse Practitioner Family Medicine 02/06/25 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 Specialty Start Date End Date Shaikh Sánchez MD [address] [place] [address] PCP - Linda MORALES 11/14/23 Ian Soares MD [address] [place] [address] PCP - General Family Medicine 09/11/24 Zamzam Wheeler NP [address] [place] [address] Nurse Practitioner Internal Medicine 01/16/24 Arturo Chanel IA [address] [place] [address] Family Medicine 09/24/24 La Pack NP [address] [place] [address] Nurse Practitioner Family Medicine 02/06/25 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 Specialty Start Date End Date Shaikh Sánchez MD [address] [place] [address] PCP - Linda MORALES 11/14/23 Ian Soares MD [address] [place] [address] PCP - General Family Medicine 09/11/24 Zamzam Wheeler NP [address] [place] [address] Nurse Practitioner Internal Medicine 01/16/24 Arturo Chanel MA [address] [place] [address] Family Medicine 09/24/24 La Pack NP [address] [place] [address] Nurse Practitioner Family Medicine 02/06/25 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 Specialty Start Date End Date Shaikh Sánchez MD [address] [place] [address] PCP - [facility] 11/14/23 Ian Soares MD [address] [place] [address] PCP - General Family Medicine 09/11/24 Zamzam Wheeler PIP[employer]INE GANG SUPERVISOR [address] [place] [address] Nurse Practitioner Internal Medicine 01/16/24 La Pack NP [address] [place] [address] Nurse Practitioner Family Medicine 02/06/25 Reason for [...] Reason Comments Suture / Staple Removal head Reason Onset Date Comments Med Refill 02/25/2025 Reason Onset Date Comments Med Refill 06/05/2025 Reason Comments Diabetes FOR RECORDS PERTAINING TO PATIENTS WHO ARE [...] BE BASED ON THE PRIMARY CLINICAL RECORDS. [employer] provides no warranty or guarantee of the accuracy or completeness of information in this document.
[2025-07-10 11:57] LABS: Anion Gap 9.1; Blood Urea Nitrogen 32.0 mg/dL (7.0-18.0); Calcium 9.4 mg/dL (8.5-10.1); Carbon Dioxide 34.7 mmol/L (21.0-32.0); Chloride 105 mmol/L (98-107); Estimated GFR (African America >60 (>=60 mL/min/1.73m^2); Estimated GFR (Non-African Ame >60 (>=60 mL/min/1.73m^2); Glucose 100 mg/dL (74-106); Potassium 3.8 mmol/L (3.5-5.1); Sodium 145 mmol/L (136-145); Thyroid Stimulating Hormone 3.785 uIU/mL (0.358-3.740)
[2025-07-10 11:59] LABS: Iron 30.0 ug/dL (50.0-170.0)
== END 2025-07-10 10:49 | disposition home or self-care (01) ==
PROVIDERS: PCP Nurse Practitioner; Visit Provider Nurse Practitioner
DX: R60.0 Localized edema (principal); E11.9 Type 2 diabetes mellitus without complications; I10 Essential (primary) hypertension; D50.0 Iron deficiency anemia secondary to blood loss (chronic); E03.9 Hypothyroidism, unspecified
CPT/HCPCS: 36415; 80048; 83540; 84439; 84443; 85025

== ENCOUNTER 2025-08-12 12:57 | Outpatient (OUT) | payer MEDICARE, MEDICAID, SELFPAY ==
--- OUTSIDE RECORDS SUMMARY | 2025-06-26 09:47 | XMS_ITS ---
Author Name Auto Generated Organization OHIP Care Team Providers Care Sensitized Paper Tester Name Role Phone Soco Beasley Admitting Unavailable Suzette Ng Consulting Unavailable Jhonaa Cardoso Primary Care Unavaila Daniel Olivas Attending Unavailable Ryan Arshad Consulting Unavailable Ilana Mendoza Consulting Unavailable Hubert Mcguire Jr Consulting UnavailDave Conn Consulting Unavaila iveth Ruiz, Cecilia Consulting Unavailable SRUTHI SOARES Attending Unavailable KIAH DAUGHERTY Attending Unavailable JHOANA CARDOSO Attending UnavailKIAH Pierce Attending Unavailable KIAH DAUGHERTY Attending Unavailable PROVIDER, UNKNOWN Attending Unavailable PROVIDER, UNKNOWN Admitting Unavailable PROBLEMS DATE TYPE CONDITION / CODE ATTENDING STATUS [facility] 12/09/2024 Unknown Acute respirator y failure with hypoxia / J96.01(ICD-10) Daniel Garza [facility] 12/09/2024 Unknown Hypotension, uns pecified / I95.9(ICD-10) [facility] Chronic obstruct desmond pulmonary disease with (acute) exacerbation / [facility]44.1(ICD-10) [facility] Unknown Pneumonitis due to inhalation of food and vomit / J69.0(ICD-10) [facility] 12/09/2024 Unknown Essential (prima ry) hypertension / I10(ICD-10) [facility] Unknown Type 2 diabetes mellitus without complications / E11.9(ICD-10) [facility] 12/09/2024 Unknown Hyperlipidemia, unspecified / E78.5(ICD-10) [facility] 12/09/2024 Unknown Depression, unsp ecified / F32.A(ICD-10) [facility] 12/09/2024 Unknown Influenza due to other identified influenza virus with other respiratory manifestations / J10.1(ICD-10) [facility]24 Unknown Other specified abnormal findings of blood chemistry / R79.89(ICD-10) [facility] Unknown Tobacco use / Z72.0(ICD-10) [facility]/09/[facility]24 Unknown Other reduced mo bility / Z74.09(ICD-10) [facility]/09/[facility]24 Unknown Other specified health status / Z78.9(ICD-10) [facility] PROCEDURES No Procedure Records Found RESULTS GLUCOSE POCT GLUCOMETERS Collected: 12/14/2024 4:22 P M Status: F Source: [facility] TYPE CODE TESTS RESULT OUT OF RANGE REFERENCE UNITS LAB GLUPOC Glucose Poc Glucometers 236 mg/dL Result Comment: Random Gluco se Reference Range is dependent on time and content of last meal. Glucose of more than 200 mg/dL in a nonstressed, ambulatory subject supports the diagnosis of Diabetes Mellitus. PERFORMED BY: [facility] [place] [address] PATHOLOGIST PATHOLOGY SUPERVISOR MANDY ACUÑA M.D. Performed By: #### GLULS ### # Point of Care testing , GLUCOSE POCT GLUCOMETERS Collected: 12/14/2024 11:23 AM Status: F Source: [facility] TYPE CODE TESTS RESULT OUT OF RANGE REFERENCE UNITS LAB GLUPOC Glucose Poc Glucometers 154 mg/dL Result Comment: Random Gluco se Reference Range is dependent on time and content of last meal. Glucose of more than 200 mg/dL in a nonstressed, ambulatory subject supports the diagnosis of Diabetes Mellitus. PERFORMED BY: [address] [address] PATHOLOGIST PATHOLOGY SUPERVISOR MANDY ACUÑA M.D. Performed By: #### GLULS ### # Point of Care testing , GLUCOSE POCT GLUCOMETERS Collected: 12/14/2024 7:24 A M Status: F Source: [facility] TYPE CODE TESTS RESULT OUT OF RANGE REFERENCE UNITS LAB GLUPOC Glucose Poc Glucometers 105 mg/dL Result Comment: Random Gluco se Reference Range is dependent on time and content of last meal. Glucose of more than 200 mg/dL in a nonstressed, ambulatory subject supports the diagnosis of Diabetes Mellitus. PERFORMED BY: [address] [address] PATHOLOGIST PATHOLOGY SUPERVISOR MANDY ACUÑA M.D. Performed By: #### GLULS ### # Point of Care testing , COMPLETE BLOOD COUNT AUTO DIFF Collected: 12/14/2024 4:55 AM Status: F Source: F [facility] TYPE CODE TESTS RESULT OUT OF RANGE REFERENCE UNITS LAB WBC White Blood Count 8.6 Normal 3.8-11.6 10*3/uL LAB UNWBC Uncorrected WBC 8.6 Normal 3.8-11.6 10*3/uL LAB RBC Red Blood Count 4.72 Normal 3.60-5.00 10*6/u L LAB HGB Hemoglobin 13.4 Normal 11.8-15.4 g/dL LAB HCT Hematocrit 40.4 Normal 34.0-46.4 % LAB MCV Mean Corpuscular Volume 85.6 Normal 80-100 fL LAB MCH Mean Corpuscular Hemoglobin 28.5 Normal 24.7-34.3 pg LAB MCHC Mean Corpuscular HGB Conc 33.3 Normal 32.0-35.0 g/dL LAB RDW Red Cell Distribution Width 15.3 Normal 11.9-15.3 % LAB PLT Platelet Count 276 Normal 150-450 10*3/uL LAB MPV Mean Platelet Volume 7.4 Normal 6.3-10.7 fL LAB NE% Neutrophils % (Auto) 84.6 . % LAB LY% Lymphocytes % (Auto) 7.0 . % LAB MO% Monocytes % (Auto) 8.2 . % LAB EO% Eosinophils % (Auto) 0.0 . % LAB BA% Basophils % (Auto) 0.2 . % LAB NRBC% NRBC% 0.1 Normal 0-0.5 /100{WBC} LAB NE# Neutrophils # (Auto) 7.2 Normal 1.8-7.7 10*3/uL LAB LY# Lymphocytes # (Auto) 0.6 Low 1.00-4.8 10*3/uL LAB MO# Monocytes # (Auto) 0.7 Normal 0.0-0.8 10*3/uL LAB EO# Eosinophils # (Auto) 0.0 Normal 0.0-0.45 10*3/uL LAB BA# Basophils # (Auto) 0.0 Normal 0.0-0.2 10*3/uL Result Comment: PERFORMED BY : [place] [address] PATHOLOGIST PATHOLOGY SUPERVISOR MANDY ACUÑA M.D. Performed By: #### CMP, CBC #### [address] COMPREHENSIVE METABOLIC PANEL Collected: 12/14/2024 4 :54 AM Status: F Source: [facility] TYPE CODE TESTS RESULT OUT OF RANGE REFERENCE UNITS LAB GLU Glucose 145 High 70-100 mg/dL Result Comment: Random Gluco se Reference Range is dependent on time and content of last meal. Glucose of more than 200 mg/dL in a nonstressed, ambulatory subject supports the diagnosis of Diabetes Mellitus. ADA recommended reference range LAB BUN Blood Urea Nitrogen 24 Normal 7-25 mg/d L LAB CREATT Creatinine 0.81 Normal 0.60-1.20 mg/dL LAB GFReNR Estimated GFR >60.0 mL/Min LAB NA Sodium 131 Low 136-145 mmol/L LAB K Potassium 4.1 Normal 3.5-5.1 mmol/L LAB CL Chloride 93 Low 98-107 mmol/L LAB CO2 Carbon Dioxide 29.4 Normal 21.0-31.0 mmol/L LAB GAP Anion Gap 12.7 Normal 6.0-15.0 meq/L LAB CA Calcium 9.2 Normal 8.6-10.3 mg/dL LAB TP Total Protein 6.9 Normal 6.4-8.9 g/dL LAB ALB Albumin Level 3.7 Normal 3.5-5.7 g/dL LAB GLOB Globulin 3.2 g/dL LAB AGRATIO Albumin/Globulin Ratio 1.2 LAB BILIT Bilirubin,Total 0.6 Normal 0.3-1.0 mg/dL LAB AST Aspartate Amino Transferase 29 Normal 13-39 U/L LAB ALT Alanine Aminotransferase 55 High 7-52 U/L LAB ALP Alkaline Phosphatase 84 Normal 34-104 U/L LAB CRCLPHA Creatinine Clr C alc Pharmacy 66.51 Result Comment: PERFORMED BY : [place] [address] PATHOLOGIST PATHOLOGY SUPERVISOR MANDY ACUÑA M.D. Performed By: #### CMP, CBC #### [address] GLUCOSE POCT GLUCOMETERS Collected: 12/13/2024 8:49 P M Status: F Source: [facility] TYPE CODE TESTS RESULT OUT OF RANGE REFERENCE UNITS LAB GLUPOC Glucose Poc Glucometers 277 mg/dL Result Comment: Random Gluco se Reference Range is dependent on time and content of last meal. Glucose of more than 200 mg/dL in a nonstressed, ambulatory subject supports the diagnosis of Diabetes Mellitus. LAB COMM1 Commemt1 Glu2: Cleaned Meter Result Comment: PERFORMED BY : [place] [address] PATHOLOGIST PATHOLOGY SUPERVISOR MANDY ACUÑA M.D. Performed By: #### GLULS ### # Point of Care testing , GLUCOSE POCT GLUCOMETERS Collected: 12/13/2024 4:15 P M Status: F Source: [facility] TYPE CODE TESTS RESULT OUT OF RANGE REFERENCE UNITS LAB GLUPOC Glucose Poc Glucometers 141 mg/dL Result Comment: Random Gluco se Reference Range is dependent on time and content of last meal. Glucose of more than 200 mg/dL in a nonstressed, ambulatory subject supports the diagnosis of Diabetes Mellitus. PERFORMED BY: [address] [place] [place] [address] PATHOLOGIST PATHOLOGY SUPERVISOR MANDY ACUÑA M.D. Performed By: #### GLULS ### # Point of Care testing , GLUCOSE POCT GLUCOMETERS Collected: 12/13/2024 11:21 AM Status: F Source: [facility] TYPE CODE TESTS RESULT OUT OF RANGE REFERENCE UNITS LAB GLUPOC Glucose Poc Glucometers 150 mg/dL Result Comment: Random Gluco se Reference Range is dependent on time and content of last meal. Glucose of more than 200 mg/dL in a nonstressed, ambulatory subject supports the diagnosis of Diabetes Mellitus. PERFORMED BY: [facility] [address] [facility] [facility] [place] [address] PATHOLOGIST PATHOLOGY SUPERVISOR MANDY ACUÑA M.D. Performed By: #### GLULS ### # Point of Care testing , GLUCOSE POCT GLUCOMETERS Collected: 12/13/2024 7:33 A M Status: F Source: [facility] TYPE CODE TESTS RESULT OUT OF RANGE REFERENCE UNITS LAB GLUPOC Glucose Poc Glucometers 117 mg/dL Result Comment: Random Gluco se Reference Range is dependent on time and content of last meal. Glucose of more than 200 mg/dL in a nonstressed, ambulatory subject supports the diagnosis of Diabetes Mellitus. PERFORMED BY: [facility] [address] [facility] [facility] [place] [address] PATHOLOGIST PATHOLOGY SUPERVISOR MANDY ACUÑA M.D. Performed By: #### GLULS ### # Point of Care testing , COMPLETE BLOOD COUNT AUTO DIFF Collected: 12/13/2024 4:47 AM Status: F Source: F [facility] TYPE CODE TESTS RESULT OUT OF RANGE REFERENCE UNITS LAB WBC White Blood Count 10.6 Normal 3.8-11.6 10*3/uL LAB UNWBC Uncorrected WBC 10.6 Normal 3.8-11.6 10*3/uL LAB RBC Red Blood Count 4.68 Normal 3.60-5.00 10*6/u L LAB HGB Hemoglobin 13.4 Normal 11.8-15.4 g/dL LAB HCT Hematocrit 40.5 Normal 34.0-46.4 % LAB MCV Mean Corpuscular Volume 86.4 Normal 80-100 fL LAB MCH Mean Corpuscular Hemoglobin 28.5 Normal 24.7-34.3 pg LAB MCHC Mean Corpuscular HGB Conc 33.0 Normal 32.0-35.0 g/dL LAB RDW Red Cell Distribution Width 15.4 High 11.9-15.3 % LAB PLT Platelet Count 302 Normal 150-450 10*3/uL LAB MPV Mean Platelet Volume 7.3 Normal 6.3-10.7 fL LAB NE% Neutrophils % (Auto) 87.0 . % LAB LY% Lymphocytes % (Auto) 6.4 . % LAB MO% Monocytes % (Auto) 6.5 . % LAB EO% Eosinophils % (Auto) 0.0 . % LAB BA% Basophils % (Auto) 0.1 . % LAB NRBC% NRBC% 0.1 Normal 0-0.5 /100{WBC} LAB NE# Neutrophils # (Auto) 9.3 High 1.8-7.7 10*3/uL LAB LY# Lymphocytes # (Auto) 0.7 Low 1.00-4.8 10*3/uL LAB MO# Monocytes # (Auto) 0.7 Normal 0.0-0.8 10*3/uL LAB EO# Eosinophils # (Auto) 0.0 Normal 0.0-0.45 10*3/uL LAB BA# Basophils # (Auto) 0.0 Normal 0.0-0.2 10*3/uL Result Comment: PERFORMED BY : [place] [address] PATHOLOGIST PATHOLOGY SUPERVISOR MANDY ACUÑA M.D. Performed By: #### CBC, CMP #### [address] COMPREHENSIVE METABOLIC PANEL Collected: 12/13/2024 4 :47 AM Status: F Source: [facility] TYPE CODE TESTS RESULT OUT OF RANGE REFERENCE UNITS LAB GLU Glucose 97 Normal 70-100 mg/dL Result Comment: Random Gluco se Reference Range is dependent on time and content of last meal. Glucose of more than 200 mg/dL in a nonstressed, ambulatory subject supports the diagnosis of Diabetes Mellitus. ADA recommended reference range LAB BUN Blood Urea Nitrogen 22 Normal 7-25 mg/d L LAB CREATT Creatinine 0.99 Normal 0.60-1.20 mg/dL LAB GFReNR Estimated GFR >60.0 mL/Min LAB NA Sodium 136 Normal 136-145 mmol/L LAB K Potassium 4.1 Normal 3.5-5.1 mmol/L LAB CL Chloride 95 Low 98-107 mmol/L LAB CO2 Carbon Dioxide 30.8 Normal 21.0-31.0 mmol/L LAB GAP Anion Gap 14.3 Normal 6.0-15.0 meq/L LAB CA Calcium 8.9 Normal 8.6-10.3 mg/dL LAB TP Total Protein 6.9 Normal 6.4-8.9 g/dL LAB ALB Albumin Level 3.8 Normal 3.5-5.7 g/dL LAB GLOB Globulin 3.1 g/dL LAB AGRATIO Albumin/Globulin Ratio 1.2 LAB BILIT Bilirubin,Total 0.5 Normal 0.3-1.0 mg/dL LAB AST Aspartate Amino Transferase 38 Normal 13-39 U/L LAB ALT Alanine Aminotransferase 65 High 7-52 U/L LAB ALP Alkaline Phosphatase 84 Normal 34-104 U/L LAB CRCLPHA Creatinine Clr C alc Pharmacy 54.42 Result Comment: PERFORMED BY : [place] [address] PATHOLOGIST PATHOLOGY SUPERVISOR MANDY ACUÑA M.D. Performed By: #### CBC, CMP #### [address] GLUCOSE POCT GLUCOMETERS Collected: 12/12/2024 9:07 P M Status: F Source: [facility] TYPE CODE TESTS RESULT OUT OF RANGE REFERENCE UNITS LAB GLUPOC Glucose Poc Glucometers 114 mg/dL Result Comment: Random Gluco se Reference Range is dependent on time and content of last meal. Glucose of more than 200 mg/dL in a nonstressed, ambulatory subject supports the diagnosis of Diabetes Mellitus. LAB COMM1 Commemt1 Glu2: Cleaned Meter Result Comment: PERFORMED BY : [address] [place] [address] PATHOLOGIST PATHOLOGY SUPERVISOR MANDY ACUÑA M.D. Performed By: #### GLULS ### # Point of Care testing , GLUCOSE POCT GLUCOMETERS Collected: 12/12/2024 5:49 P M Status: F Source: [facility] TYPE CODE TESTS RESULT OUT OF RANGE REFERENCE UNITS LAB GLUPOC Glucose Poc Glucometers 107 mg/dL Result Comment: Random Gluco se Reference Range is dependent on time and content of last meal. Glucose of more than 200 mg/dL in a nonstressed, ambulatory subject supports the diagnosis of Diabetes Mellitus. PERFORMED BY: [address] [place] [address] PATHOLOGIST PATHOLOGY SUPERVISOR MANDY ACUÑA M.D. Performed By: #### GLULS ### # Point of Care testing , GLUCOSE POCT GLUCOMETERS Collected: 12/12/2024 12:31 PM Status: F Source: [facility] TYPE CODE TESTS RESULT OUT OF RANGE REFERENCE UNITS LAB GLUPOC Glucose Poc Glucometers 177 mg/dL Result Comment: Random Gluco se Reference Range is dependent on time and content of last meal. Glucose of more than 200 mg/dL in a nonstressed, ambulatory subject supports the diagnosis of Diabetes Mellitus. PERFORMED BY: [address] [place] [address] PATHOLOGIST PATHOLOGY SUPERVISOR MANDY ACUÑA M.D. Performed By: #### GLULS ### # Point of Care testing , COMPLETE BLOOD COUNT AUTO DIFF Collected: 12/12/2024 3:47 AM Status: F Source: F [facility] TYPE CODE TESTS RESULT OUT OF RANGE REFERENCE UNITS LAB WBC White Blood Count 11.6 Normal 3.8-11.6 10*3/uL LAB UNWBC Uncorrected WBC 11.6 Normal 3.8-11.6 10*3/uL LAB RBC Red Blood Count 4.04 Normal 3.60-5.00 10*6/u L LAB HGB Hemoglobin 11.3 Low 11.8-15.4 g/dL LAB HCT Hematocrit 34.5 Normal 34.0-46.4 % LAB MCV Mean Corpuscular Volume 85.4 Normal 80-100 fL LAB MCH Mean Corpuscular Hemoglobin 28.0 Normal 24.7-34.3 pg LAB MCHC Mean Corpuscular HGB Conc 32.8 Normal 32.0-35.0 g/dL LAB RDW Red Cell Distribution Width 15.8 High 11.9-15.3 % LAB PLT Platelet Count 282 Normal 150-450 10*3/uL LAB MPV Mean Platelet Volume 7.4 Normal 6.3-10.7 fL LAB NE% Neutrophils % (Auto) 93.0 . % LAB LY% Lymphocytes % (Auto) 2.2 . % LAB MO% Monocytes % (Auto) 4.8 . % LAB EO% Eosinophils % (Auto) 0.0 . % LAB BA% Basophils % (Auto) 0.0 . % LAB NRBC% NRBC% 0.0 Normal 0-0.5 /100{WBC} LAB NE# Neutrophils # (Auto) 10.8 High 1.8-7.7 10*3/uL LAB LY# Lymphocytes # (Auto) 0.3 Low 1.00-4.8 10*3/uL LAB MO# Monocytes # (Auto) 0.6 Normal 0.0-0.8 10*3/uL LAB EO# Eosinophils # (Auto) 0.0 Normal 0.0-0.45 10*3/uL LAB BA# Basophils # (Auto) 0.0 Normal 0.0-0.2 10*3/uL Result Comment: PERFORMED BY : [place] [address] PATHOLOGIST PATHOLOGY SUPERVISOR MANDY ACUÑA M.D. Performed By: #### CBC #### [address] COMPREHENSIVE METABOLIC PANEL Collected: 12/12/2024 3 :47 AM Status: F Source: [facility] TYPE CODE TESTS RESULT OUT OF RANGE REFERENCE UNITS LAB GLU Glucose 123 High 70-100 mg/dL Result Comment: Random Gluco se Reference Range is dependent on time and content of last meal. Glucose of more than 200 mg/dL in a nonstressed, ambulatory subject supports the diagnosis of Diabetes Mellitus. ADA recommended reference range LAB BUN Blood Urea Nitrogen 16 Normal 7-25 mg/d L LAB CREATT Creatinine 0.65 Normal 0.60-1.20 mg/dL LAB GFReNR Estimated GFR >60.0 mL/Min LAB NA Sodium 139 Normal 136-145 mmol/L LAB K Potassium 3.7 Normal 3.5-5.1 mmol/L LAB CL Chloride 101 Normal 98-107 mmol/L LAB CO2 Carbon Dioxide 29.2 Normal 21.0-31.0 mmol/L LAB GAP Anion Gap 12.5 Normal 6.0-15.0 meq/L LAB CA Calcium 8.3 Low 8.6-10.3 mg/dL LAB TP Total Protein 6.3 Low 6.4-8.9 g/dL LAB ALB Albumin Level 3.6 Normal 3.5-5.7 g/dL LAB GLOB Globulin 2.7 g/dL LAB AGRATIO Albumin/Globulin Ratio 1.3 LAB BILIT Bilirubin,Total 0.4 Normal 0.3-1.0 mg/dL LAB AST Aspartate Amino Transferase 41 High 13-39 U/L LAB ALT Alanine Aminotransferase 67 High 7-52 U/L LAB ALP Alkaline Phosphatase 72 Normal 34-104 U/L LAB CRCLPHA Creatinine Clr C alc Pharmacy 67.88 Performed By: #### PHOS, CMP #### [facility] [address] PHOSPHORUS Collected: 3:47 AM Status: F Source: [facility] TYPE CODE TESTS RESULT OUT OF RANGE REFERENCE UNITS LAB PHOS Phosphorus 2.0 Low 2.5-4.5 mg/dL Result Comment: PERFORMED BY : [facility] [address] [place] [address] PATHOLOGIST PATHOLOGY SUPERVISOR MANDY ACUÑA M.D. Performed By: #### PHOS, CMP #### [facility] [address] GLUCOSE POCT GLUCOMETERS Collected: 12/12/2024 12:00 AM Status: F Source: [facility] TYPE CODE TESTS RESULT OUT OF RANGE REFERENCE UNITS LAB GLUPOC Glucose Poc Glucometers 150 mg/dL Result Comment: Random Gluco se Reference Range is dependent on time and content of last meal. Glucose of more than 200 mg/dL in a nonstressed, ambulatory subject supports the diagnosis of Diabetes Mellitus. PERFORMED BY: [place] [id number] PATHOLOGIST PATHOLOGY SUPERVISOR MANDY ACUÑA M.D. Performed By: #### GLULS ### # Point of Care testing , GLUCOSE POCT GLUCOMETERS Collected: 12/11/2024 5:33 P M Status: F Source: [facility] TYPE CODE TESTS RESULT OUT OF RANGE REFERENCE UNITS LAB GLUPOC Glucose Poc Glucometers 132 mg/dL Result Comment: Random Gluco se Reference Range is dependent on time and content of last meal. Glucose of more than 200 mg/dL in a nonstressed, ambulatory subject supports the diagnosis of Diabetes Mellitus. PERFORMED BY: [place] [address] PATHOLOGIST PATHOLOGY SUPERVISOR MANDY ACUÑA M.D. Performed By: #### GLULS ### # Point of Care testing , XR CHEST 1V PORTABLE Observed: 8:32 AM Status: COMPLETED Source: [facility] Main [place] [id number] XRay Report Signed Patient: Zuleyka Chaudhry MR#: [id number] 27 : 1955 Acct:[id number] Age/Sex: 69 / F ADM Date: 12/09/24 Loc: Room: [address] [place] [address] Type: ADM IN Attending Dr: Daniel Garza MD Copies to: MD Soco Cruz MD Ordering Provider: Soco Beasley MD Date of Service: 12/11/24 XR/XR chest 1V portable: intubated SINGLE VIEW CHEST CLINICAL HISTORY: Ventilator care. COMPARISON: Chest 12/10/2024 FINDINGS: Enteric tube tip below the level of the diaphragm. ET tube in satisfactory position. Heart appears normal in size. Bibasilar atelectasis/interstitial changes persist. No consolidation pneumothorax pleural effusion or free air. XR/XR chest 1V portable IMPRESSION: NO STUDY CHANGE IN CHEST FINDINGS. Impression dictated by: Ryan Ugalde Jr., D.O.12/11/2024 8:33 AM Dictation Location: [facility] Transcribed By: PWS 12/11/2433 Dictated By: Ryan Ugalde Jr, DO 12/11/2432 Signed By: <Electronically signed by Ryan Ugalde Jr, DO in OV> 12/11/24832 ARTERIAL BLOOD GAS Collected: 12/11/2024 4:22 AM Sta tus: F Source: [facility] TYPE CODE TESTS RESULT OUT OF RANGE REFERENCE UNITS LAB ARTPH ABG PH 7.36 Normal 7.35-7.45 LAB ARTPCO2 ABG PCO2 40.3 Normal 35.0-45.0 mm[Hg] LAB ARTPO2 ABG PO2 126.0 High Off Scale 80.0-100.0 mm[Hg] LAB ARTHCO3 ABG HCO3 22.2 Low 23.0-29.0 mmol/L LAB ARTBE ABG Base Excess -3.0 Normal -3.0-3.0 mmol/L LAB [id number] ABG Oxygen Saturation 98.1 Normal 95.0-100.0 % LAB [id number] ABG Oxygen Content 6.9 Normal 6.6-9.7 mmol/L LAB ARTTCO2 ABG TCO2 23.4 Normal 23.0-27.0 mmol/L LAB ARTFIO2 ABG Frac Inspired O2 55 % LAB ARTTV ABG TV 420 mL LAB ARTPEEP ABG PEEP 8 cmH20 LAB VBDRAW VBG Draw Site Left Radial LAB VENTMODE Ventilator Mode AC LAB BGRR Set Respiratory Rate 18 LAB RESPCRIT Respiratory Critical Result Comment: Critical Daisha ue called on: 12/11/2024 at 04:26 PERFORMED BY: [facility] [address] [place] [address] PATHOLOGIST PATHOLOGY SUPERVISOR MANDY ACUÑA M.D. Performed By: #### ABG #### Point of Care testing , COMPLETE BLOOD COUNT AUTO DIFF Collected: 12/11/2024 4:14 AM Status: F Source: F [facility] TYPE CODE TESTS RESULT OUT OF RANGE REFERENCE UNITS LAB WBC White Blood Count 15.4 High 3.8-11.6 10*3/uL LAB UNWBC Uncorrected WBC 15.4 High 3.8-11.6 10*3/uL LAB RBC Red Blood Count 3.74 Normal 3.60-5.00 10*6/u L LAB HGB Hemoglobin 10.8 Low 11.8-15.4 g/dL LAB HCT Hematocrit 32.9 Low 34.0-46.4 % LAB MCV Mean Corpuscular Volume 87.9 Normal 80-100 fL LAB MCH Mean Corpuscular Hemoglobin 28.9 Normal 24.7-34.3 pg LAB MCHC Mean Corpuscular HGB Conc 32.9 Normal 32.0-35.0 g/dL LAB RDW Red Cell Distribution Width 16.3 High 11.9-15.3 % LAB PLT Platelet Count 244 Normal 150-450 10*3/uL LAB MPV Mean Platelet Volume 7.2 Normal 6.3-10.7 fL LAB NE% Neutrophils % (Auto) 94.5 . % LAB LY% Lymphocytes % (Auto) 1.7 . % LAB MO% Monocytes % (Auto) 3.4 . % LAB EO% Eosinophils % (Auto) 0.0 . % LAB BA% Basophils % (Auto) 0.4 . % LAB NRBC% NRBC% 0.0 Normal 0-0.5 /100{WBC} LAB NE# Neutrophils # (Auto) 14.5 High 1.8-7.7 10*3/uL LAB LY# Lymphocytes # (Auto) 0.3 Low 1.00-4.8 10*3/uL LAB MO# Monocytes # (Auto) 0.5 Normal 0.0-0.8 10*3/uL LAB EO# Eosinophils # (Auto) 0.0 Normal 0.0-0.45 10*3/uL LAB BA# Basophils # (Auto) 0.1 Normal 0.0-0.2 10*3/uL Result Comment: PERFORMED BY : [place] [address] PATHOLOGIST PATHOLOGY SUPERVISOR MANDY ACUÑA M.D. Performed By: #### PHOS, MG, CMP, CBC #### [address] COMPREHENSIVE METABOLIC PANEL Collected: 12/11/2024 4:14 AM Status: F Source: F [facility] TYPE CODE TESTS RESULT OUT OF RANGE REFERENCE UNITS LAB GLU Glucose 134 High 70-100 mg/dL Result Comment: Random Gluco se Reference Range is dependent on time and content of last meal. Glucose of more than 200 mg/dL in a nonstressed, ambulatory subject supports the diagnosis of Diabetes Mellitus. ADA recommended reference range LAB BUN Blood Urea Nitrogen 21 Normal 7-25 mg/dL LAB CREATT Creatinine 0.74 Normal 0.60-1.20 mg/dL LAB GFReNR Estimated GFR >60.0 mL/Min LAB NA Sodium 136 Decreased 136-145 mmol/L LAB K Potassium 4.3 Normal 3.5-5.1 mmol/L LAB CL Chloride 105 Normal 98-107 mmol/L LAB CO2 Carbon Dioxide 23.7 Normal 21.0-31.0 mmol/L LAB GAP Anion Gap 11.6 Normal 6.0-15.0 meq/L LAB CA Calcium 8.1 Low 8.6-10.3 mg/dL LAB TP Total Protein 5.5 Low 6.4-8.9 g/dL LAB ALB Albumin Level 3.4 Low 3.5-5.7 g/dL LAB GLOB Globulin 2.1 g/dL LAB AGRATIO Albumin/Globulin Ratio 1.6 LAB BILIT Bilirubin,Total 0.4 Normal 0.3-1.0 mg/dL LAB AST Aspartate Amino Transferase 49 High 13-39 U/L LAB ALT Alanine Aminotransferase 76 High 7-52 U/L LAB ALP Alkaline Phosphatase 69 Normal 34-104 U/L LAB CRCLPHA Creatinine Clr Calc Pharmacy 67.88 Performed By: #### PHOS, MG, CMP, CBC #### [facility] [address] PHOSPHORUS Collected: 5 4:14 AM Status: F Source: [facility] TYPE CODE TESTS RESULT OUT OF RANGE REFERENCE UNITS LAB PHOS Phosphorus 2.6 Normal 2.5-4.5 mg/dL Performed By: #### PHOS, MG, CMP, CBC #### [facility] [address] [place] [id number] [facility] Collected: 5 4:14 AM Status: F Source: [facility] TYPE CODE TESTS RESULT OUT OF RANGE REFERENCE UNITS LAB MG Magnesium 2.3 Normal 1.9-2.7 mg/dL Result Comment: PERFORMED BY : [facility] [address] [place] [address] PATHOLOGIST PATHOLOGY SUPERVISOR MANDY ACUÑA M.D. Performed By: #### PHOS, MG, CMP, CBC #### [id number] [facility] TRIGLYCERIDES Collected: 3:10 AM Status: F Source: [facility] TYPE CODE TESTS RESULT OUT OF RANGE REFERENCE UNITS LAB TRIG Triglycerides 158 High 35-149 mg/dL Result Comment: TRIG ATP III CLASSIFICATION TRIG less than 150 mg/dL Normal TRIG 150-199 mg/dL Borderline high TRIG 200-500 mg/dL High TRIG greater than 500 mg/dL Very high Standard traceable to the Center for Disease Conrtrol and Prevention (CDC) test method. PERFORMED BY: [place] [address] PATHOLOGIST PATHOLOGY SUPERVISOR MANDY ACUÑA M.D. Performed By: #### TRIG #### [place] [id number] [facility] GLUCOSE PO[facility] GLUCOMETERS Collected: 12/11/2024 12:10 AM Status: F Source: [facility] TYPE CODE TESTS RESULT OUT OF RANGE REFERENCE UNITS LAB GLUPOC Glucose Poc Glucometers 123 mg/dL Result Comment: Random Gluco se Reference Range is dependent on time and content of last meal. Glucose of more than 200 mg/dL in a nonstressed, ambulatory subject supports the diagnosis of Diabetes Mellitus. PERFORMED BY: [place] [address] PATHOLOGIST PATHOLOGY SUPERVISOR MANDY ACUÑA M.D. Performed By: #### GLULS ### # Point of Care testing , ECH ECHO TRANSTHORACIC Observed: 025 11:42 AM Status: COMPLETED Source: [facility] [place] [facility] [address] [place] [address] Echocardiogram Signed Patient: Zuleyka Chaudhry MR#: [id number] [birth year] : 1955 Acct:[id number] Age/Sex: 69 / F ADM Date: 12/09/24 Loc: Room: [address] [place] [address] Type: ADM IN Attending Dr: Daniel Garza MD Ordering Provider: Krissy Cortez MD Date of Service: 12/10/24 ECH/[facility] echo transthoracic: Elevated troponin Copies to: [...] V1 max: 95.3 cm/sec (0.7-1.7m/s)MV E max sandro: 65.1 cm/sec(0.8-1.3m/s) MV A max sandro: 92.5 cm/sec(0.0-0.0m/s) MV E/A: 0.70 (<1.5) MMode/2D Measurements Calculations TAPSE: 2.7 cm FS: 25.0 % Ao root area: LVOT diam: 2.0 cm RV S Sandro: EDV(Teich): 6.6 cm2 LVOT area: 3.1 cm2 [...] max PG: TV max PG: TR max sandro: 95.4 cm/sec 3.6 mmHg 19.0 mmHg 220.0 [...] Signed By: Gildardo Pastor MD 12/10/24 1712 GLUCOSE POCT GLUCOMETERS Collected: 12/10/2024 11:37 AM Status: F Source: [facility] TYPE CODE TESTS RESULT OUT OF RANGE REFERENCE UNITS LAB GLUPOC Glucose Poc Glucometers 135 mg/dL Result Comment: Random Gluco se Reference Range is dependent on time and content of last meal. Glucose of more than 200 mg/dL in a nonstressed, ambulatory subject supports the diagnosis of Diabetes Mellitus. PERFORMED BY: [place] [address] PATHOLOGIST PATHOLOGY SUPERVISOR MANDY ACUÑA M.D. Performed By: #### GLULS ### # Point of Care testing , XR CHEST 1V PORTABLE Observed: 9:12 AM Status: COMPLETED Source: [facility] [place] [address] XRay Report Signed Patient: Zuleyka Chaudhry MR#: [id number] [birth year] : 1955 Acct:[id number] Age/Sex: 69 / F ADM Date: 12/09/24 Loc: Room: [address] [place] [address] Type: ADM IN Attending Dr: Soco Beasley MD Copies to: Soco Beasley MD Ordering Provider: Soco Beasley MD Date of Service: 12/10/24 XR/XR chest 1V portable: Intubated SINGLE VIEW CHEST CLINICAL HISTORY: Transfer from [place]. Following responsive. COMPARISON: Chest 12/09/2024 FINDINGS: Enteric tube tip below the level of the diaphragm. ET tube in satisfactory position. Heart appears normal in size. Bibasilar atelectasis/interstitial changes. No consolidation pneumothorax pleural effusion or free air. XR/XR chest 1V portable IMPRESSION: TUBES IN SATISFACTORY POSITIONS. BIBASILAR ATELECTASIS/INTERSTITIAL CHANGES. Impression dictated by: Ryan Ugalde Jr., D.O.12/10/2024 9:13 AM Dictation Location: [place] [address] Transcribed By: [facility] 12/10/24 0913 Dictated By: Ryan Ugalde Jr, DO 12/10/24 0912 Signed By: <Electronically signed by Ryan Ugalde Jr, DO in OV> 12/10/24 0913 XR ABDOMEN 1V Observed: 12/10/2024 8:31 AM Status: COMPLETED Source: [facility] [place] [address] XRay Report Signed Patient: Zuleyka Chaudhry MR#: [id number] [birth year] : 1955 Acct:[id number] Age/Sex: 69 / F ADM Date: 12/09/24 Loc: Room: [address] [place] [address] Type: ADM IN Attending Dr: Soco Beasley [...] Ugalde Jr., D.O.12/10/2024 8:33 AM Dictation Location: RAD[facility]--23 Transcribed By: ANDREW 12/10/24832 Dictated By: Ryan Ugalde Jr, DO 12/10/24830 Signed By: <Electronically signed by Ryan Ugalde Jr DO in OV> 12/10/24832 XR CHEST 1V PORTABLE Observed: 8:29 AM Status: COMPLETED Source: [facility] [place] [address] XRay Report Signed Patient: Zuleyka Chaudhry MR#: [id number] [birth year] : 1955 Acct:[id number] Age/Sex: 69 / F ADM Date: 12/09/24 Loc: Room: [address] [place] [address] Type: ADM IN Attending Dr: Soco Beasley [...] Torsten Toledo M.D.12/10/2024 8:31 AM Dictation Location: [facility]--26 Transcribed By: ANDREW 12/10/24830 Dictated By: Torsten Toledo MD 12/10/24828 Signed By: <Electronically signed by Torsten Toledo MD in OV> 12/10/24830 TROPONIN I HIGH SENSITIVITY Collected: 12/10/2024 6:2 1 AM Status: F Source: [facility] TYPE CODE TESTS RESULT OUT OF RANGE REFERENCE UNITS LAB HS TROP Troponin I High Sensitivity 1309 High Off Scale 0-15 Result Comment: Critical Res ult : Called to and read back by: VIOLA KAY at: 12/10/2024 07:21:46 by:CELESTINA The Troponin units of report have been changed to meet the Chest Pain Accreditation requirement, element EC5.M1l2. Troponin units are changed from pg/ml to ng/L. Also, the decimal is removed and results are in whole numbers. PERFORMED BY: [address] [address] PATHOLOGIST PATHOLOGY SUPERVISOR MANDY ACUÑA M.D. Performed By: #### HS TROP # ### [place] [id number] [facility] ARTERIAL BLOOD GAS Collected: 12/10/2024 6:04 AM Sta tus: F Source: [facility] TYPE CODE TESTS RESULT OUT OF RANGE REFERENCE UNITS LAB ARTPH ABG PH 7.34 Low 7.35-7.45 LAB ARTPCO2 ABG PCO2 42.7 Normal 35.0-45.0 mm[Hg] LAB ARTPO2 ABG PO2 99.2 Normal 80.0-100.0 mm[Hg] LAB ARTHCO3 ABG HCO3 22.7 Low 23.0-29.0 mmol/L LAB ARTBE ABG Base Excess -2.9 Normal -3.0-3.0 mmol/L LAB AGBR2DOA ABG Oxygen Saturation 97.3 Normal 95.0-100.0 % LAB JGJA4LY ABG Oxygen Content 6.8 Normal 6.6-9.7 mmol/L LAB ARTTCO2 ABG TCO2 24.0 Normal 23.0-27.0 mmol/L LAB ARTFIO2 ABG Frac Inspired O2 50 % LAB ARTTV ABG TV 450 mL LAB ARTPEEP ABG PEEP 5 cmH20 LAB VBDRAW VBG Draw Site Left Radial LAB VENTMODE Ventilator Mode AC LAB BGRR Set Respiratory Rate 18 LAB RESPCRIT Respiratory Critical Result Comment: Critical Daisha ue called on: 12/10/2024 at 06:05 PERFORMED BY: [address] [address] PATHOLOGIST PATHOLOGY SUPERVISOR MANDY ACUÑA M.D. Performed By: #### ABG #### Point of Care testing , DRUG SCREEN,URINE Collected: 12/10/2024 5:00 AM Stat us: F Source: [facility] TYPE CODE TESTS RESULT OUT OF RANGE REFERENCE UNITS LAB URAMPS Amphetamine Screen,Urine Negative Negative LAB URBARBS Barbiturate Screen,Urine Negative Negative LAB URBENZS Benzodiazepines Screen,Urine Positive High Negative LAB URCOCS Cocaine Screen,Urine Negative Negative LAB UROPIS Opiate Screen,Urine Positive High Negative LAB URPCPS Phencyclidine Screen,Urine Negative Negative LAB URTHCS Cannabinoid Screen,Urine Negative Negative Result Comment: These are un confirmed results and should not be used for legal purposes. Drug Cut-Off Concentration: AMPH 1000 ng/mL MICHAEL 200 ng/mL JAVAN 200 ng/mL COCM 300 ng/mL OP 300 ng/mL PCP 25 ng/mL THC 20 ng/mL PERFORMED BY: [place] [address] PATHOLOGIST PATHOLOGY SUPERVISOR MANDY ACUÑA M.D. Performed By: #### URDS #### [address] COMPLETE BLOOD COUNT AUTO DIFF Collected: 12/10/2024 3:55 AM Status: F Source: F [facility] TYPE CODE TESTS RESULT OUT OF RANGE REFERENCE UNITS LAB WBC White Blood Count 15.2 High 3.8-11.6 10*3/uL LAB UNWBC Uncorrected WBC 15.2 High 3.8-11.6 10*3/uL LAB RBC Red Blood Count 3.57 Low 3.60-5.00 10*6/u L LAB HGB Hemoglobin 10.1 Low 11.8-15.4 g/dL LAB HCT Hematocrit 31.0 Low 34.0-46.4 % LAB MCV Mean Corpuscular Volume 86.7 Normal 80-100 fL LAB MCH Mean Corpuscular Hemoglobin 28.4 Normal 24.7-34.3 pg LAB MCHC Mean Corpuscular HGB Conc 32.7 Normal 32.0-35.0 g/dL LAB RDW Red Cell Distribution Width 15.5 High 11.9-15.3 % LAB PLT Platelet Count 236 Normal 150-450 10*3/uL LAB MPV Mean Platelet Volume 7.0 Normal 6.3-10.7 fL LAB NE% Neutrophils % (Auto) 95.2 . % LAB LY% Lymphocytes % (Auto) 1.2 . % LAB MO% Monocytes % (Auto) 3.1 . % LAB EO% Eosinophils % (Auto) 0.0 . % LAB BA% Basophils % (Auto) 0.5 . % LAB NRBC% NRBC% 0.0 Normal 0-0.5 /100{WBC} LAB NE# Neutrophils # (Auto) 14.4 High 1.8-7.7 10*3/uL LAB LY# Lymphocytes # (Auto) 0.2 Low 1.00-4.8 10*3/uL LAB MO# Monocytes # (Auto) 0.5 Normal 0.0-0.8 10*3/uL LAB EO# Eosinophils # (Auto) 0.0 Normal 0.0-0.45 10*3/uL LAB BA# Basophils # (Auto) 0.1 Normal 0.0-0.2 10*3/uL Result Comment: PERFORMED BY : [place] [address] PATHOLOGIST PATHOLOGY SUPERVISOR MANDY ACUÑA M.D. Performed By: #### MG, CMP, CBC #### [address] COMPREHENSIVE METABOLIC PANEL Collected: 12/10/2024 3 :55 AM Status: F Source: [facility] TYPE CODE TESTS RESULT OUT OF RANGE REFERENCE UNITS LAB GLU Glucose 151 High 70-100 mg/dL Result Comment: Random Gluco se Reference Range is dependent on time and content of last meal. Glucose of more than 200 mg/dL in a nonstressed, ambulatory subject supports the diagnosis of Diabetes Mellitus. ADA recommended reference range LAB BUN Blood Urea Nitrogen 14 Normal 7-25 mg/d L LAB CREATT Creatinine 0.64 Normal 0.60-1.20 mg/dL LAB GFReNR Estimated GFR >60.0 mL/Min LAB NA Sodium 130 Low 136-145 mmol/L LAB K Potassium 3.3 Low 3.5-5.1 mmol/L LAB CL Chloride 101 Normal 98-107 mmol/L LAB CO2 Carbon Dioxide 22.0 Normal 21.0-31.0 mmol/L LAB GAP Anion Gap 10.3 Normal 6.0-15.0 meq/L LAB CA Calcium 7.0 Low 8.6-10.3 mg/dL LAB TP Total Protein 5.6 Low 6.4-8.9 g/dL LAB ALB Albumin Level 3.4 Low 3.5-5.7 g/dL LAB GLOB Globulin 2.2 g/dL LAB AGRATIO Albumin/Globulin Ratio 1.5 LAB BILIT Bilirubin,Total 0.4 Normal 0.3-1.0 mg/dL LAB AST Aspartate Amino Transferase 50 High 13-39 U/L LAB ALT Alanine Aminotransferase 71 High 7-52 U/L LAB ALP Alkaline Phosphatase 69 Normal 34-104 U/L LAB CRCLPHA Creatinine Clr C alc Pharmacy 69.14 Performed By: #### MG, CMP, CBC #### [address] MAGNESIUM Collected: 3:55 AM Status: F Source: [facility] TYPE CODE TESTS RESULT OUT OF RANGE REFERENCE UNITS LAB MG Magnesium 1.7 Low 1.9-2.7 mg/dL Result Comment: PERFORMED BY : [place] [address] PATHOLOGIST PATHOLOGY SUPERVISOR MANDY ACUÑA M.D. Performed By: #### MG, CMP, CBC #### [place] [id number] [facility] ARTERIAL BLOOD GAS Collected: 12/10/2024 12:[address] atus: F Source: [facility] TYPE CODE TESTS RESULT OUT OF RANGE REFERENCE UNITS LAB ARTPH ABG PH 7.28 Low 7.35-7.45 LAB ARTPCO2 ABG PCO2 47.5 High 35.0-45.0 mm[Hg] LAB ARTPO2 ABG PO2 140.9 High Off Scale 80.0-100.0 mm[Hg] LAB ARTHCO3 ABG HCO3 21.8 Low 23.0-29.0 mmol/L LAB ARTBE ABG Base Excess -4.9 Low -3.0-3.0 mmol/L LAB [id number] ABG Oxygen Saturation 98.2 Normal 95.0-100.0 % LAB AMOQ0FH ABG Oxygen Content 6.8 Normal 6.6-9.7 mmol/L LAB ARTTCO2 ABG TCO2 23.3 Normal 23.0-27.0 mmol/L LAB ARTFIO2 ABG Frac Inspired O2 60 % LAB ARTTV ABG TV 500 mL LAB ARTPEEP ABG PEEP 5 cmH20 LAB VBDRAW VBG Draw Site Right Radial LAB VENTMODE Ventilator Mode AC LAB BGRR Set Respiratory Rate 18 LAB RESPCRIT Respiratory Critical Result Comment: Critical Daisha ue called on: 12/10/2024 at 00:12 PERFORMED BY: [place] [id number] PATHOLOGIST PATHOLOGY SUPERVISOR MANDY ACUÑA M.D. Performed By: #### ABG #### Point of Care testing , LACTIC ACID Collected: 10:47 PM Status: F Source: [facility] TYPE CODE TESTS RESULT OUT OF RANGE REFERENCE UNITS LAB LACTIC Lactic Acid 1.4 Normal 0.5-1.9 mmol/L Result Comment: Lactic Acid reference range has been updated to 0.5 ? 1.9 mmol/L and the critical range of 2.0 or greater. PERFORMED BY: [address] [place] [address] PATHOLOGIST PATHOLOGY SUPERVISOR MANDY ACUÑA M.D. Performed By: #### LACTIC, C UBLD #### [facility] [address] [place], [place] [id number] [place] BLOOD CULTURE Observed: 12/09/2024 10:47 PM Status: F Source: [facility] NO GROWTH 5 DAYS PERFORMED BY: [address] [place] [id number] PATHOLOGIST PATHOLOGY SUPERVISOR MANDY ACUÑA M.D. Performed By: #### LACTIC, C UBLD #### [facility] [address] [place], [place] [id number] [place] GRAM STAIN Observed: 12/09/2024 9:45 PM Status: F Source: [facility] Gram Stain Result 3+ White Blood Cells Rare Epithelial Cells 4+ Gram Positive Cocci in Chains AND PAIRS PERFORMED BY: [address] [address] PATHOLOGIST PATHOLOGY SUPERVISOR MANDY ACUÑA M.D. Performed By: #### GS, AERC #### [place] [id number] [facility] AEROBIC CULTURE Observed: 12/09/2024 9:45 PM Status: F Source: [facility] Light Normal Respiratory Antonio ra 2 Days Gram Stain Result 3+ White Blood Cells Rare Epithelial Cells 4+ Gram Positive Cocci in Chains AND PAIRS PERFORMED BY: [place] [address] PATHOLOGIST PATHOLOGY SUPERVISOR MANDY ACUÑA M.D. Performed By: #### GS, AERC #### [place] [id number] [facility] LACTIC ACID Collected: 9:43 PM Status: F Source: [facility] TYPE CODE TESTS RESULT OUT OF RANGE REFERENCE UNITS LAB LACTIC Lactic Acid 1.3 Normal 0.5-1.9 mmol/L Result Comment: Lactic Acid reference range has been updated to 0.5 ? 1.9 mmol/L and the critical range of 2.0 or greater. PERFORMED BY: [place] [address] PATHOLOGIST PATHOLOGY SUPERVISOR MANDY ACUÑA M.D. Performed By: #### CMP, DIFF CBC, HS TROP, LACTIC #### [place] [id number] [facility] COMPREHENSIVE METABOLIC PANEL Collected: 12/09/2024 9 :43 PM Status: F Source: [facility] TYPE CODE TESTS RESULT OUT OF RANGE REFERENCE UNITS LAB GLU Glucose 186 High 70-100 mg/dL Result Comment: Random Gluco se Reference Range is dependent on time and content of last meal. Glucose of more than 200 mg/dL in a nonstressed, ambulatory subject supports the diagnosis of Diabetes Mellitus. ADA recommended reference range LAB BUN Blood Urea Nitrogen 16 Normal 7-25 mg/d L LAB CREATT Creatinine 0.68 Normal 0.60-1.20 mg/dL LAB GFReNR Estimated GFR >60.0 mL/Min LAB NA Sodium 127 Low 136-145 mmol/L LAB K Potassium 3.2 Low 3.5-5.1 mmol/L LAB CL Chloride 97 Low 98-107 mmol/L LAB CO2 Carbon Dioxide 24.6 Normal 21.0-31.0 mmol/L LAB GAP Anion Gap 8.6 Normal 6.0-15.0 meq/L LAB CA Calcium 7.1 Low 8.6-10.3 mg/dL LAB TP Total Protein 5.9 Low 6.4-8.9 g/dL LAB ALB Albumin Level 3.6 Normal 3.5-5.7 g/dL LAB GLOB Globulin 2.3 g/dL LAB AGRATIO Albumin/Globulin Ratio 1.6 LAB BILIT Bilirubin,Total 0.4 Normal 0.3-1.0 mg/dL LAB AST Aspartate Amino Transferase 61 High 13-39 U/L LAB ALT Alanine Aminotransferase 82 High 7-52 U/L LAB ALP Alkaline Phosphatase 78 Normal 34-104 U/L Result Comment: PERFORMED BY : [address] [address] PATHOLOGIST PATHOLOGY SUPERVISOR MANDY ACUÑA M.D. Performed By: #### CMP, DIFF CBC, HS TROP, LACTIC #### [address] [address] [facility] TROPONIN I HIGH SENSITIVITY Collected: 12/09/2024 9:4 3 PM Status: F Source: [facility] TYPE CODE TESTS RESULT OUT OF RANGE REFERENCE UNITS LAB HS TROP Troponin I High Sensitivity 1309 High Off Scale 0-15 Result Comment: Critical Res ult : Called to and read back by: VIOLA KAY at: 12/09/2024 23:07:02 by: The Troponin units of report have been changed to meet the Chest Pain Accreditation requirement, element EC5.M1l2. Troponin units are changed from pg/ml to ng/L. Also, the decimal is removed and results are in whole numbers. PERFORMED BY: [address] [address] PATHOLOGIST PATHOLOGY SUPERVISOR MANDY ACUÑA M.D. Performed By: #### CMP, DIFF CBC, HS TROP, LACTIC #### [facility] [address] [place] [address] [facility] DIFF AND CBC Collected: 12/09/2024 9:43 PM Status: F Source: [facility] TYPE CODE TESTS RESULT OUT OF RANGE REFERENCE UNITS LAB WBC White Blood Count 15.9 High 3.8-11.6 10*3/ uL LAB UNWBC Uncorrected WBC 15.9 High 3.8-11.6 10*3/uL LAB RBC Red Blood Count 3.80 Normal 3.60-5.00 10*6/u L LAB HGB Hemoglobin 10.7 Low 11.8-15.4 g/dL LAB HCT Hematocrit 33.0 Low 34.0-46.4 % LAB MCV Mean Corpuscular Volume 87.0 Normal 80-100 fL LAB MCH Mean Corpuscular Hemoglobin 28.1 Normal 24.7-34.3 pg LAB MCHC Mean Corpuscular HGB Conc 32.3 Normal 32.0-35.0 g/dL LAB RDW Red Cell Distribution Width 15.4 High 11.9-15.3 % LAB PLT Platelet Count 236 Normal 150-450 10*3/uL LAB MPV Mean Platelet Volume 6.9 Normal 6.3-10.7 fL Result Comment: PERFORMED BY : [place] [address] PATHOLOGIST PATHOLOGY SUPERVISOR MANDY ACUÑA M.D. LAB SEG Segmented Neutrophils 71 High 50-70 % LAB BAND Band Neutrophils 27 High 0-5 % LAB LYMPH Lymphocytes 0 Low 18-42 % LAB MON Monocytes 2 Normal 2-11 % LAB POLY Polychromasia Slight LAB POIK Poikilocytosis Slight LAB ANISO Anisocytosis Slight LAB MICR Microcytosis Slight LAB CREN Crenated RBC Slight LAB PLT EST Platelet Estimate Normal Normal LAB PLTM Platelet Morphology Normal Normal Result Comment: PERFORMED BY : [place] [address] PATHOLOGIST PATHOLOGY SUPERVISOR MANDY ACUÑA M.D. Performed By: #### CMP, DIFF CBC, HS TROP, LACTIC #### [address] TRIGLYCERIDES Collected: 5 9:43 PM Status: F Source: [facility] TYPE CODE TESTS RESULT OUT OF RANGE REFERENCE UNITS LAB TRIG Triglycerides 63 Normal 35-149 mg/dL Result Comment: TRIG ATP III CLASSIFICATION TRIG less than 150 mg/dL Normal TRIG 150-199 mg/dL Borderline high TRIG 200-500 mg/dL High TRIG greater than 500 mg/dL Very high Standard traceable to the Center for Disease Conrtrol and Prevention (CDC) test method. PERFORMED BY: [place] [address] PATHOLOGIST PATHOLOGY SUPERVISOR MANDY ACUÑA M.D. Performed By: #### TRIG #### [address] BLOOD CULTURE Observed: 12/09/2024 9:43 PM Status: F Source: [facility] NO GROWTH 5 DAYS PERFORMED BY: [place] [address] PATHOLOGIST PATHOLOGY SUPERVISOR MANDY ACUÑA M.D. Performed By: #### LACTIC, C UBLD #### [address] ECG 12 LEAD ECG Observed: 12/09/2024 9:33 PM Status: COMPLETED Source: [facility] [place] [address] Electrocardiograph Report Signed Patient: Zuleyka Chaudhry MR#: [id number] [birth year] : 1955 Acct:[id number] Age/Sex: 69 / F ADM Date: 12/09/24 Loc: Room: [address] [place] [address] Type: ADM IN Attending Dr: Daniel Garza [...] block Abnormal ECG Confirmed by Krissy Cortez ([id number]) on 12/12/2024 12:01:02 AM Referred By: Electronically Signed By: Krissy Cortez Transcribed By: MUS Signed By Krissy Cortez MD 5 0001 ARTERIAL BLOOD GAS Collected: 12/09/2024 9:25 PM Sta tus: F Source: [facility] TYPE CODE TESTS RESULT OUT OF RANGE REFERENCE UNITS LAB ARTPH ABG PH 7.23 Low 7.35-7.45 LAB ARTPCO2 ABG PCO2 57.0 High Off Scale 35.0-45.0 mm[Hg] LAB ARTPO2 ABG PO2 66.7 Low 80.0-100.0 mm[Hg] LAB ARTHCO3 ABG HCO3 23.3 Normal 23.0-29.0 mmol/L LAB ARTBE ABG Base Excess -4.7 Low -3.0-3.0 mmol/L LAB [id number] ABG Oxygen Saturation 90.5 Low 95.0-100.0 % LAB [id number] ABG Oxygen Content 6.5 Low 6.6-9.7 mmol/L LAB ARTTCO2 ABG TCO2 25.1 Normal 23.0-27.0 mmol/L LAB ARTFIO2 ABG Frac Inspired O2 40 % LAB ARTTV ABG TV 450 mL LAB ARTPEEP ABG PEEP 5 cmH20 LAB VBDRAW VBG Draw Site Left Radial LAB VENTMODE Ventilator Mode AC LAB BGRR Set Respiratory Rate 14 LAB RESPCRIT Respiratory Critical Result Comment: Critical Daisha ue called on: 12/09/2024 at 21:27 PERFORMED BY: [place] [address] [place] [address] PATHOLOGIST PATHOLOGY SUPERVISOR MANDY ACUÑA M.D. Performed By: #### ABG #### Point of Care testing , ALLERGIES DATE TYPE / CODE NAME / CODE REACTION SEVERITY SOURCE 01/04/2025 Drug Allergy/[id number] (SNOMED CT) No Known Allergies/[id number] 88(RXNORM) Unknown [facility] ENCOUNTERS ADMIT/DISCHARGE ACCOUNT NUMBER ADMITTING ENCOUNTER CLASS LOCATION SOURCE 06/26/2025/06/26/20 [id number] Ambulatory Building:[facility] 02/06/2025/02/07/20 [id number] Ambulatory Building:[facility] 01/23/2025/01/24/20 [id number] Ambulatory Building:[facility] 01/14/2025/01/15/20 25 [id number] Ambulatory Building:[facility]IC 12/09/2024/12/14/19 25 [id number] Soco Beasley [facility] [id number]: 1 [facility] 12/09/2024/12/09/19 25 [id number] [facility] 09/20/2024/09/20/20 24 [id number] Ambulatory Building:[facility] EPIC PAYERS ENCOUNTER GUARANTOR PAYER SUBSCRIBER SOURCE 06/26/2025 ZULEYKA PHELANB: [place] [address]Vww: (HP) Primary Insurance:[facility], [facility] MEDICARE ADVANTAGEPolicy Number: [id number] Date:2021-06-14 ZULEYKA CHAUDHRYDOB: [id number] [place] [address] [facility] EPIC 02/06/2025 ZULEYKA CHAUDHRYDOB: [place] [address]Unl: (HP) Primary Insurance:[employer], [facility] MEDICARE ADVANTAGEPolicy Number: [id number] Date:2021-06-14 ZULEYKA CHAUDHRYDOB: [id number] [place] [address] [facility] EPIC 01/23/2025 ZULEYKA Ramirez HALLDOB: [place] [address]Jbh: (HP) Primary Insurance:[employer], [facility] MEDICARE ADVANTAGEPolicy Number: [id number] Date:2021-06-14 ZULEYKA CHAUDHRYDOB: [id number] [place] [address] [facility] EPIC 01/14/2025 ZULEYKA CHAUDHRYDOB: [facility] [place] [address]Btf: (HP) Primary Insurance:CAROLYNJEANNIE MEDICARE ADVANTAGEPolicy Number: [id number] Date:2021-06-14 ZULEYKA CHAUDHRYDOB: [id number] [facility] [place] [address] [facility] 12/09/[address] [place], [place] [address] [place] [address]Jcb: (HP) Primary Insurance:Linda Esparza Dual AdvPolicy Number: [id number] Date:[id number] [address]TK: Zuleyka ChaudhryDOB: [id number] [facility] [place] [address]Apy: (HP) [facility] 12/09/2024 Secondary Insurance:MedicarePoli cy Number: [id number] Date:2024-12-09 Zuleyka ChaudhryDOB: [id number] [facility] [place] [address]Owk: () [facility] 12/09/2024 Tertiary Insurance:Self PayPolicy Number: Effective Date:2024-12-09 [facility] ZULEYKA CHAUDHRYDOB: [facility] [place] [address]Can: (HP) Primary Insurance:LINDA MEDICAREPolicy Number: [id number] Date:2024-11-14 ZULEYKA CHAUDHRYDOB: [id number] [facility] [place] [address]Pxk: (HP) [facility] 09/20/2024 ZULEYKA CHAUDHRYB: [id number] [place] [address]Trq: () Primary Insurance:[employer] MEDICARE ADVANTAGEPolicy Number: [id number] Date:2021-06-14 ZULEYKA BRITO: [id number] [place] [address] [facility] EPIC
[2025-08-12 13:50] LABS: Alanine Aminotransferase 29 U/L (14-59); Albumin Globulin Ratio 0.9; Albumin Level 3.6 g/dL (3.4-5.0); Alkaline Phosphatase 111 U/L (46-116); Anion Gap 11.6; Aspartate Amino Transferase 15 U/L (15-37); Blood Urea Nitrogen 27.0 mg/dL (7.0-18.0); Calcium 9.1 mg/dL (8.5-10.1); Carbon Dioxide 34.6 mmol/L (21.0-32.0); Chloride 102 mmol/L (98-107); Estimated GFR (African America >60 (>=60 mL/min/1.73m^2); Estimated GFR (Non-African Ame >60 (>=60 mL/min/1.73m^2); Globulin 3.9 g/dL; Glucose 107 mg/dL (74-106); Potassium 4.2 mmol/L (3.5-5.1); Sodium 144 mmol/L (136-145); Total Protein 7.5 g/dL (6.4-8.2)
[2025-08-12 14:16] LABS: Ferritin 93.0 ng/mL (8.0-252.0)
== END 2025-08-12 12:58 | disposition home or self-care (01) ==
LOC: LAB 12:58
PROVIDERS: PCP Nurse Practitioner; Visit Provider Nurse Practitioner
DX: R60.0 Localized edema (principal); E11.9 Type 2 diabetes mellitus without complications; D50.0 Iron deficiency anemia secondary to blood loss (chronic)
CPT/HCPCS: 36415; 80053; 82728

== ENCOUNTER 2025-08-27 12:32 | Outpatient (OUT) | payer MEDICARE, MEDICAID, SELFPAY ==
--- OUTSIDE RECORDS SUMMARY | 2025-07-02 05:00 | XMS_ITS ---
Author Organization [facility] [place] Address [address] [place] [address] Care Team Providers Care Recycling Technician Name Role Phone Gonzalo ANGULO, Primary Care Provider Avani Pickering [phone] REASON FOR VISIT New PT Hem Encounters Encounter Location Date Provider Diagnosis [facility] [place] On[facility] [place] [address] 07/02/2025 Avani Chacon Plan Of Treatment No Information Progress Notes * JULIAN MONTAÑO MDOB: 3 (70 yo F)Acc No.[id number]:07/02/2025 UNLOCKED PROGRESS NOTE Progress Notes Patient: JULIAN HIGH Provider: Gael Chacon M.D. :1955 A ge:70 Y S ex:Female Date:07/02/2025 Address:[address] [place], [place] [id number] Pcp:Shaikh Gonzalo MD Subjective: * Chief Complaints: * 1 . New PT Hem. * Medical History: Objective: * Vitals: Assessment: Plan: * Treatment: * * Electronic signature of Eleno Chacon MD, [id number] on 08/27/2025 at 12:36 PM EDT Sign off status: Pending Visit Status: C ANC (Cancelled) * Provider: Gael Chacon M.D. Date: 0 07/02/2025 Generated for Printi ng/Faxing/eTransmitting on: 1 12:36 PM EDT
--- OUTSIDE RECORDS SUMMARY | 2025-08-27 12:36 | XMS_ITS | Encounter Summary ---
Author Organization [facility] Address [address] [place] [address] Care Team Providers Care Aeronautical Design Engineer Name Role Phone Shaikh KEV Sánchez Unavailable [phone] Zamzam Wheeler SUPERVISOR OF GUIDANCE AND TESTING Unavailable [phone] Shaikh KEV Sánchez Primary Care Provider [phone] Funmilayo Lombardo HUC OB Unavailable Gustavo Romero FORGE SHOP SUPERVISOR Unavailable Unavailable Kirstin Carreon FORGE SHOP SUPERVISOR Unavailable Ian Rader MD Primary Care Provider [phone] Jhoana Cardoso SUPERVISOR OF GUIDANCE AND TESTING Unavailable [phone] Arturo Chanel MA Unavailable [phone] La Pack SUPERVISOR OF GUIDANCE AND TESTING Unavailable [phone] Encounter Details Date Type Department Care Team (Late st Contact Info) Description 01/16/2024 Clinisync Result Encounter [facility] External Department Unsolicited Shaikh Sánchez MD [address] [place] [address] Social History Tobacco Use Types Packs/Day Years [...] as of this encounter Plan of Treatment Not on file documented as of this encounter Procedures Procedure Name Priority Date/Time Associated Diagnosis Comments MM TOMOSYNTHESIS SCREENING BI 01/16/2024 9:10 AM EST documented in this encounter Results * MM TOMOSYNTHESIS SCREENING BI (01/16/2024 9:10 AM EST) Anatomical Region Laterality Modality Other 01/16/2024 9:10 AM EST Narrative 01/16/2024 9:11 [place] [address] Mammography Report Signed Patient: ZULEYKA CHAUDHRY MR#: [id number] : 1955 Acct:[id number] Age/Sex: 68 / F ADM Date: 01/16/24 Loc: MAMMO Attending Dr: Shaikh Gonzalo Hooker Ordering Physician: Shaikh Morro Sánchez Results: Date of Service: 01/16/24 Follow Up: Procedure(s): MM tomosynthesis screening BI Accession Number(s): [id number] cc: Shaikh Morro Sánchez Patient Name: ZULEYKA CHAUDHRY MR#: [id number] : 1955 Exam Date: 01/16/2024 Ordering Doctor: [...] uterine cancer at age 53. LOCATION: [facility] BREAST COMPOSITION: Almost entirely fatty. FINDINGS: DIAGNOSTIC [...] M.D. Signed By: 01/16/24910 DD/ 9 TD/TT: Coding Validator: Procedure Note Radiology, Radiologist, MD - 01/16/2024 [place] [address] Mammography Report Signed Patient: ZULEYKA CHAUDHRY MMR#: [id number] : 1955cct:[id number] Age/Sex: 68 / FADM Date: 01/16/24 Loc: MAMMO Attending Dr: Shaikh Gonzalo Hooker Ordering Physician: Shaikh Morro SánchezResults: Date of Service: 01/16/24Follow Up: Procedure(s): MM tomosynthesis screening BI Accession Number(s): [id number] cc: Shaikh Morro Sánchez Patient Name: ZULEYKA CHAUDHRY MR#: [id number] : 1955 Exam Date: 01/16/2024 Ordering Doctor: Shaikh Hector Suazo RADIOLOGY REPORT PROCEDURE: MM TOMOSYNTHESIS SCREENING BI COMPARISON: MG MAMM SCREEN EDINSON W CAD, 07/04/2020. MG MAMM SCREEN 3DBIL CAD, 08/11/2021. INDICATIONS: screening Calculator Name NCI Breast Cancer Risk Assessment Tool 5 Year Breast Cancer Risk 1.10% Lifetime Breast Cancer Risk 3.30% Personal Breast Cancer No Personal Ovarian Cancer No Treatments None Family Cancers Mother with uterine cancer at age 55. LOCATION: [facility] BREAST COMPOSITION: Almost entirely fatty. FINDINGS: DIAGNOSTIC [...] Morgan M.D. Signed By:01/16/24910 DD/ 9 TD/TT: Coding Validator: us Shaikh Gonzalo [facility] Final Result documented in this encounter Visit Diagnoses Not on filedocumented in this encounter Care Teams Aeronautical Design Engineer Relationship Specialty Start Date End Date Shaikh Sánchez MD [address] [place] [phone] PCP - Linda MORALES 11/14/23 Shaikh Sánchez MD [address] [place] [phone] PCP - General Internal Medicine 01/16/24 09/10/24 [place] [address] [place] [address] PCP - General Family Medicine 09/11/24 Zamazm Wheeler NP [facility] [place] [address] Nurse Practitioner Internal Medicine 01/16/24 [place] [address] [place] [address] Community Health Nurse Staff Construction Equipment Mechanic 06/28/24 07/04/24 Gustavo Romero LPN Licensed Practical Nurse Family Medicine 07/04/24 Kirstin Carreon LPN [address] [place] [address] Licensed Practical Nurse Family Medicine 07/27/2409/14 [place] [address] [place] [address] Nurse Practitioner Family Medicine 09/11/24 02/05/25 Arturo Chanel NM [address] [place] [address] Family Medicine 09/24/24 07/09/25 La Pack NP [address] [place] [address] Nurse Practitioner Family Medicine 02/06/25 documented as of this encounter
--- OUTSIDE RECORDS SUMMARY | 2025-08-27 12:36 | XMS_ITS | Encounter Summary ---
Author Organization [facility] Address [address] [facility] [place] [place] [address] Care Team Providers Care Deicer Finisher Name Role Phone Shaikh KEV Sánchez Unavailable [phone] Zamzam Wheeler CORROSION TECHNICIAN Unavailable Ian Rader MD Primary Care Provider [phone] Jhoana Cardoso CORROSION TECHNICIAN Unavailable [phone] Arturo Chanel MA Unavailable [phone] La Pack CORROSION TECHNICIAN Unavailable [phone] Encounter Details Date Type Department Care Team (Late st Contact Info) Description 01/14/2025 Abstract [facility] [address] [place] [address] Ian Rader MD [address] [place] [address] Social History Tobacco Use Types Packs/Day Years [...] on file documented as of this encounter Visit Diagnoses Not on filedocumented in this encounter Additional Health Concerns Assessment Noted Time PHQ-9 Depression Total Score: 1 03/08/20 24 3:39 PM EDT documented as of this encounter Care Teams Deicer Finisher Relationship Specialty Start Date End Date Shaikh Sánchez MD [address] [place] [phone] PCP - Linda MORALES 11/14/23 Ian Rader MD [address] [place] [phone] PCP - General Family Medicine 09/11/24 Zamzam Wheeler NP [address] [place] [phone] Nurse Practitioner Internal Medicine 01/16/24 Jhoana Cardoso NP [address] [place] [address] Nurse Practitioner Family Medicine 09/11/24 02/05/25 Arturo Chanel MA [address] [place] [address] Family Medicine 09/24/24 07/09/25 La Pack NP [address] [place] [address] Nurse Practitioner Family Medicine 02/06/25 documented as of this encounter
--- OUTSIDE RECORDS SUMMARY | 2025-08-27 12:36 | XMS_ITS | Clinical Summary ---
Author Organization [facility] Address [id number] [address] [place] [address] Care Team Providers Care Booking Supervisor Name Role Phone Russell Tillman MD Primary Care Provider Unava ilable Allergies No known active allergies Medications LIPITOR 40 mg tablet 8 Active polyethylene glycol (GLYCOLAX) 17 gram packet Take 17 g by mouth daily. Active metFORMIN (GLUCOPHAGE) 500 mg tablet Take 500 mg by mouth 2 (two) times a day with meals. Active lisinopril (PRINIVIL,ZEST RIL) 10 mg tablet Take 10 mg by mouth 2 (two) times a day. Active famotidine (PEPCID) 20 mg tablet Take 20 mg by mouth 2 (two) times a day. Active fluticasone (FLONASE) 50 mcg/actuation nasal spray Administer 1 spray into each nostril daily. Active cholecalcifero l, vitamin D3, (VITAMIN D3) 1,000 units tablet Take 1,000 Units by mouth daily. Active multivitamin capsule Take 1 capsule by mouth daily. Active alendronate (FOSAMAX) 70 mg tablet Take 70 mg by mouth every 7 days. In a.m. with water on empty stomach, nothing else by mouth and remain upright for 30min Active docusate sodium (COLACE) 100 mg capsule Take 100 mg by mouth 2 (two) times a day. Active DOCOSAHEXANOIC ACID/EPA (FISH OIL ORAL) Take 1,000 mg by mouth daily. Active blood sugar diagnostic (glucose blood) strip by miscellaneous route. Active ammonium lactate 12-12 % kit Apply topically. Act desmond calcium carbonate-reba min D3 (CALCIUM 500 + D) 500 mg(1,250mg) -200 units per tablet Take 1 tablet by mouth 2 (two) times a day with meals. Active fexofenadine (NADIRA) 180 mg tablet Take 180 mg by mouth daily. Active meloxicam (MOBIC) 7.5 mg tablet Take 7.5 mg by mouth daily. 5 9 Active omeprazole (PriLOSEC) 20 mg capsule Take 1 capsule by mouth daily. Active spironolactone (ALDACTONE) 25 mg tablet Take 1 tablet by mouth daily. Active ferrous sulfate (IRON ORAL) Take by mouth. Activ e Active Problems Problem Noted Date Diagnosed Date Other abnormalities of gait and mobility 025 Acute hypoxic respiratory failure 12/24/2024 Aspiration pneumonia 12/24/2024 Influenza A 12/24/2024 Cigarette smoker 12/24/2024 Type 2 diabetes mellitus wit hout complication, without long-term current use of insulin 12/24/2024 Anxiety 12/24/2024 Rectal bleeding 11/29/2019 Positive fecal occult blood test 11/29/2019 COPD (chronic obstructive pulmonary disease) Depression Family History Medical History Relation Name Comments Colon cancer Cousin maternal side Ovarian cancer Mother Relation Name Status Comments Brother Alive Cousin maternal side Alive Daughter 1 Alive Daughter 2 Alive Father Maternal Grandfather Maternal Grandmother Mother Paternal Grandfather Paternal Grandmother Sister Alive Son 1 Alive Son 2 Alive Social History Tobacco Use Types Packs/Day Years Used Date Smoking Tobacco: Former Cigarettes 2 10 Smokeless Tobacco: Never Tobacco Cessation:Counseling Given: Yes Alcohol Use Standard Drinks/Week Comments No 0 (1 standard drink = 0.6 oz pur e alcohol) Childcare Answer Date Recorded Childcare Unknown 04/13/2019 Employment Answer Date Recorded Employment Unknown 04/13/2019 Purpose - Life Answer Date Recorded Purpose and direction in life Unknown Comments Unknown Sex and Gender Information Value Date Recorded Sex Assigned at Not on file Legal Sex Female 11:26 AM EDT Gender Identity Not on file Sexual Orientation Not on file Last Filed Vital Signs Vital Sign Reading Time Taken Comments Blood Pressure 129/84 01/01/2025 1:20 PM EST Pulse 73 01/01/2025 1:20 PM EST Temperature 36.7 C (98.1 F) 01/01/2025 1:20 PM EST Respiratory Rate 16 01/01/2025 1:20 PM EST Oxygen Saturation 96% 01/01/2025 1:20 PM EST Inhaled Oxygen Concentration - - Weight 63.5 kg (140 lb) 12/25/2024 5:23 PM EST Height 162.6 cm (5' 4 ) 12/18/2024 7:16 PM EST Body Mass Index 24.03 12/18/2024 7:16 PM EST Plan of Treatment Health Maintenance Due Date Last Done Comments Diabetic Ophthalmology Exam 1955 Statin Use: Diabetic 1955 Depression Screening 1965 Tobacco Screening 1965 Diabetic Foot Exam 1971 DTaP,Tdap and Td Vaccines (1 - Tdap) 1972 Zoster (Shingles) Vaccine (1 of 2) 2003 Fall Risk Screening 2018 Influenza Vaccine 07/15/2025 Adult BMI Screening 12/25/2025 12/25/2024 Medical Devices Not on file Insurance [employer] Care Teams Booking Supervisor Relationship Specialty Start Date End Date Russell Tillman MD PCP - General Family Medicine 02/07/17
--- OUTSIDE RECORDS SUMMARY | 2025-08-27 12:36 | XMS_ITS | Encounter Summary ---
Author Organization [facility] Address [address] [facility] [place] [address] Care Team Providers Care Lamp Shade Sewer Name Role Phone Shaikh KEV Sánchez Unavailable [phone] Zamzam Wheeler FUEL HOUSE ATTENDANT Unavailable Ian Rader MD Primary Care Provider Jhoana Cardoso FUEL HOUSE ATTENDANT Unavailable [phone] Arturo Chanel MA Unavailable [phone] La Pack FUEL HOUSE ATTENDANT Unavailable [phone] Encounter Details Date Type Department Care Team (Late st Contact Info) Description 01/14/2025 Abstract [facility] [address] [place] [address] Ian Rader MD [address] [place] [address] Social History Tobacco Use Types Packs/Day Years [...] documented as of this encounter Care Teams Lamp Shade Sewer Relationship Specialty Start Date End Date Shaikh Sánchez MD [address] [place] [address] PCP - Linda MORALES 11/14/23 Ian Rader MD [address] [place] [address] PCP - General Family Medicine 09/11/24 Zamzam Wheeler NP [address] [place] [address] Nurse Practitioner Internal Medicine 01/16/24 Jhoana Cardoso NP [address] [place] [address] Nurse Practitioner Family Medicine 09/11/24 02/05/25 Arturo Chanel MA [address] [place] [address] Family Medicine 09/24/24 07/09/25 La Pack NP [address] [place] [address] Nurse Practitioner Family Medicine 02/06/25 documented as of this encounter
--- OUTSIDE RECORDS SUMMARY | 2025-08-27 12:36 | XMS_ITS | Clinical Summary ---
Author Organization [facility] Address [address] [place] [address] Care Team Providers Care Receiver Setter Name Role Phone Shaikh KEV Sánchez Unavailable [phone] Zamzam Wheeler EMPLOYMENT LAW SPECIALIST Unavailable [phone] Ian Rader MD Primary Care Provider [phone] La Pack EMPLOYMENT LAW SPECIALIST Unavailable [phone] Allergies No known active allergies Medications LORazepam (Ativan) 0.5 MG tabletIndications :ELADIO (generalized anxiety disorder) Take 1 tablet (0.5 mg) by mouth 3 (three) times a day as needed for anxiety for up to 10 days 30 tablet 01/07/20 25 Active Glucose Blood (Blood Glucose Test) stripIndications: Type 2 diabetes mellitus without complication, without long-term current use of insulin ([facility]) 1 each by In Vitro route Daily 100 strip 3 01/31/20 25 026 Active albuterol HFA 90 mcg/act inhalerIndication s:Chronic obstructive pulmonary disease, unspecified COPD type ([facility]) Inhale 2 puffs every 4 (four) hours if needed for wheezing 18 g 3 02/26/20 25 Active Abrysvo 120 MCG/0.5ML reconstituted solution 12/21/19 25 Active Fluticasone-Umecl idin-Vilant (Trelegy Ellipta) 200-62.5-25 MCG/ACT aerosol powderIndications :Asthma with COPD (chronic obstructive pulmonary disease) ([facility]) Inhale 1 Inhalation Daily 3 each 1 05/06/20 25 Active Fluticasone-Umecl idin-Vilant (Trelegy Ellipta) 200-62.5-25 MCG/ACT aerosol powderIndications :Asthma with COPD (chronic obstructive pulmonary disease) ([facility]) Inhale 1 Inhalation Daily 3 each 1 05/06/20 Active atorvastatin (Lipitor) 40 MG tabletIndications :Hyperlipidemia, unspecified Take 1 tablet (40 mg) by mouth at bedtime 100 tablet 06/05/20 25 Active cholecalciferol (Vitamin D-3) 50 MCG (1999 UT) tabletIndications :Vitamin D deficiency Take 1 tablet (50 mcg) by mouth Daily 100 tablet 06/05/20 25 025 Active metFORMIN (Glucophage) 500 MG tabletIndications :Type 2 diabetes mellitus without complications ([facility]) Take 1 tablet (500 mg) by mouth Daily 100 tablet 06/05/20 25 025 Active omeprazole (PriLOSEC) [address] capsuleIndication s:Gastro-esophage al reflux disease without esophagitis Take 1 capsule (20 mg) by mouth Daily 100 capsule 06/05/20 025 Active losartan (Cozaar) 50 MG tabletIndications :Primary hypertension Take 1 tablet (50 mg) by mouth Daily 100 tablet 06/05/20 025 Active albuterol (2.5 MG/3ML) 0.083% nebulizer solutionIndicatio ns:Chronic obstructive pulmonary disease, unspecified COPD type ([facility]) Take 3 mL (2.5 mg) by nebulization every 6 (six) hours if needed for wheezing 75 mL 1 06/09/20 Active sertraline (Zoloft) 100 MG tabletIndications :Depression, [...] mg) by mouth Daily 30 tablet 1 06/26/20 25 Active Active Problems Problem Noted Date Diagnosed Date [...] 06/13/2025 Abnormal CBC 06/13/2025 Encounter for subsequent [facility] wellness visit (AWV) in Medicare patient 04/16/2025 [...] 5:02 AM EDT): Has not smoked since [employer] Assessment & Plan (02/06/2025 10:33 AM EDT): Has not smoked since [employer] Assessment & Plan (01/23/2025 6:53 AM EDT): The patient has been advised of the risks of continued smoking: stroke, [place], all forms of cancer, lung disease, and [...] PM EDT): Most recent labs: hemoglobin A1C 9/23 - 5.6 Average FSBS range from BGs [...] PM EST): Most recent labs: hemoglobin A1C 9/23 - 5.6 Average FSBS range from BGs [...] PLAN FOR MODERATE PERSISTENT ASTHMA WITHOUT COMPLICATION ([facility]) WRITTEN ON 11/21/2023 3:40 PM BY SHAIKH [...] diabetes mellitus type 2. Patient [facility] monitoring of acoustic neuroma initially diagnosed in 2014. At that time she had the acoustic neuroma surgically removed. She was told there was reoccurrence in 2018. 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 Repeat MRI,as below, without evidence of mass or abnormal enhanceent. Current smoker 11/21/2023 01/23/2025 Assessment & Plan (11/21/2023 3:44 PM EST): Down to 2-3 cigarettes a day. Encouraged the patient. She will attempt to quit completely in upcoming days. Encounters Date Type Department Care Team Description 07/10/2025 Clinisync Result Encounter [facility] External Department Unsolicited La Pack NP 07/04/2025 Patient Outreach [facility] [address] [place] [address] Arturo Chanel MA 06/26/2025 10:30 AM EDT Office Visit [facility] [address] [place] [phone] La Pack NP Edema of both lower legs (Primary Dx); Primary hypertension ; Chronic obstructive pulmonary disease, unspecified COPD type (HCC); Type 2 diabetes mellitus without complication, without long-term current use of insulin (HCC); Cigarette nicotine dependence without complication; Depression, unspecified ; Generalized anxiety disorder ; Cellulitis of left lower extremity 06/26/2025 Bamboo flowsheet [facility] [address] [address] La Pack NP 06/13/2025 Orders Only [facility] [address] [place] [phone] La Pack NP Iron deficiency (Primary Dx); Abnormal CBC 06/07/2025 Refill [facility] [address] [address] Ian Rader MD Chronic obstructive pulmonary disease, unspecified COPD type (HCC) 06/05/20[facility] [address] [place] [address] La Pack NP Primary hypertension (Primary Dx); Hyperlipidemia, unspecified ; Vitamin D deficiency; Type 2 diabetes mellitus without complications (HCC); Gastro-esophageal reflux disease without esophagitis; Depression, unspecified 06/05/2025 Orders Only [facility] [address] [place] [address] La Pack NP from Last 3 Months Immunizations Immunization Administration [...] 01/23/2025 11:44 AM EDT Plan of Treatment Health Maintenance Due Date [...] Procedure Name Priority Date/Time Associated Diagnosis Comments ALL THYROID STIM HORMONE Routine 07/10/2025 11:11 AM EDT ALL BASIC METABOLIC PANEL Routine 07/10/2025 11:11 AM EDT ALL THYROXINE (T4) FREE Routine 07/10/2025 11:11 AM EDT HMHP IRON Routine 07/10/2025 11:11 AM EDT ALL CBC WITH AUTO DIFF Routine 11:11 AM EDT SCANNED LABS Routine 06/05/2025 9:11 AM EDT [...] Recently Relevant to Health Maintenance Results * (ABNORMAL) HMHP IRON (07/10/2025 11:11 AM EDT) TB IRON 30.0(L) 50.0 - 170.0 ug/dL TBH 07/10/2025 11:1 1 AM EDT 07/10/2025 11:14 AM EDT Narrative CLINISYNC - 07/10/2025 12:12 PM EDT La Pack NP CLINISYNC Final Result Performing Organization Address [facility]/ZIP Co de Phone Number [facility] * ALL THYROXINE (T4) FREE (07/10/2025 11:11 AM EDT) FREE T4 1.12 0.76 - 1.46 ng/dL TB 07/10/2025 11:1 1 AM EDT 07/10/2025 11:14 AM EDT Narrative CLINISYNC - 07/10/2025 12:12 PM EDT La Pack NP CLINISYNC Final Result Performing Organization Address City/[facility]/ZIP Co de Phone Number [facility] * (ABNORMAL) ALL THYROID STIM HORMONE (07/10/2025 11:11 AM EDT) THYROID STIMULATING HORMONE 3.785(H) 0.358 - 3.740 uIU/mL TBH 07/10/2025 11:1 1 AM EDT 07/10/2025 11:14 AM EDT Narrative CLINISYNC - 07/10/2025 12:13 PM EDT us La Pack GREG CLINISYNC Final Result CLINISYNC TB * (ABNORMAL) ALL CBC WITH AUTO DIFF (07/10/2025 11:11 AM EDT) TBH WBC 7.0 4.0 - 11.0 10 3/uL TBH TBH RBC 4.43 4.20 - 5.40 10 6/uL TBH TBH HGB 12.0 12.0 - 16.0 g/dL TBH TBH HCT 39.8 36.0 - 48.0 % TBH TBH MCV 89.8 81.0 - 99.0 fL TBH TBH MCH 27.1 26.7 - 34.0 pg TBH TBH MCHC 30.2 29.9 - 35.2 g/dL TBH TBH RDW 15.4(H) 11.0 - 15.0 % TBH TBH PLT 294 150 - 450 10 3/uL TBH TBH MPV 8.9(L) 9.5 - 13.5 fL TBH NEUTROPHILS PERCENT AUTO 79.2(H) 43.0 - 75.0 % TBH LYMPHOCYTES PERCENT AUTO 11.3(L) 20.5 - 60.0 % TBH MONOCYTES PERCENT AUTO 7.0 1.7 - 12.0 % TBH TBH EO % 1.3 0.9 - 7.0 % TBH BASOPHILS PERCENT AUTO 0.9 0.2 - 2.0 % TBH IMMATURE GRANULOCYTES PCT AUTO 0.3 0.0 - 0.5 % TBH NEUTROPHILS ABSOLUTE AUTO 5.5 1.4 - 6.5 10 3/uL TBH LYMPHOCYTES ABSOLUTE AUTO 0.8(L) 1.2 - 3.8 10 3/uL TBH MONOCYTES ABSOLUTE AUTO 0.5 0.3 - 0.8 10 3/uL TBH TBH EO # 0.1 0.0 - 0.7 10 3/uL TBH BASOPHILS ABSOLUTE AUTO 0.1 0.0 - 0.1 10 3/uL TBH IMMATURE GRANULOCYTES ABS AUTO 0.02 0.00 - 0.03 10 3/uL TBH 07/10/2025 11:1 1 AM EDT 07/10/2025 11:14 AM EDT Narrative CLINISYNC - 07/10/2025 11:18 AM EDT La Pack NP CLINISYNC Final Result CLINISYNC TBH * (ABNORMAL) ALL BASIC METABOLIC PANEL (07/10/2025 11:11 AM EDT) SODIUM 145 136 - 145 mmol/L TBH POTASSIUM 3.8 3.5 - 5.1 mmol/L TBH CHLORIDE 105 98 - 107 mmol/L TBH CARBON DIOXIDE 34.7(H) 21.0 - 32.0 mmol/L TBH ANION GAP 9.1 TBH GLUCOSE 100 74 - 106 mg/dL TBH BLOOD UREA NITROGEN 32.0(H) 7.0 - 18.0 mg/dL TBH CREATININE 0.67 0.55 - 1.02 mg/dL TBH TBH EGFR-AF NIGERIAN >60 >=60 mL/min/1.7 3m 2 TBH TBH EGFR-NON AF NIGERIAN >60 >=60 mL/min/1.7 3m 2 TBH BUN CREATININE RATIO 47.8 TBH CALCIUM 9.4 8.5 - 10.1 mg/dL TBH 07/10/2025 11:1 1 AM EDT 07/10/2025 11:14 AM EDT Narrative CLINISYNC - 07/10/2025 12:13 PM EDT La Pack NP CLINISYNC Final Result CLINISYNC TBH * SCANNED LABS (06/05/2025 9:11 AM EDT) La Pack NP LAB CHG PERFORMABLES Final Resu lt * MM TOMOSYNTHESIS SCREENING BI (02/18/2025 3:53 PM EDT) Anatomical Region Laterality Modality Other 02/18/2025 3:53 PM EDT Narrative 02/18/2025 3:54 PM EDT [facility] [place] [id number] Mammography Report Signed Patient: ZULEYKA CHAUDHRY MR#: [id number] : 1955 Acct:[id number] Age/Sex: 69 / F ADM Date: 02/18/25 Loc: MAMMO Attending Dr: La Pack NP Ordering Physician: La Pack NP Results: Date of Service: 02/18/25 Follow Up: Procedure(s): MM tomosynthesis screening BI Accession Number(s): [id number] cc: La Pack NP Patient Name: ZULEYKA CHAUDHRY MR#: [id number] : 1955 Exam Date: 02/18/2025 Ordering Doctor: [...] uterine cancer at age 53. LOCATION: [facility] BREAST COMPOSITION: The breasts are almost [...] Signed By: 02/18/25 1554 DD/ 1553 TD/TT: Rn Documentation Specialist: Procedure Note Radiology, Radiologist, - 02/18/2025 [place] [address] Mammography Report Signed Patient: ZULEYKA CHAUDHRY MMR#: [id number] : 1955cct:[id number] Age/Sex: 69 / FADM Date: 02/18/25 Loc: MAMMO Attending Dr: La Pack EMPLOYMENT LAW SPECIALIST Ordering Physician: La Pack NPResults: Date of Service: 02/18/25Follow Up: Procedure(s): MM tomosynthesis screening BI Accession Number(s): [id number] cc: La Pack NP Patient Name: ZULEYKA CHAUDHRY MR#: [id number] : 1955 Exam Date: 02/18/2025 Ordering Doctor: RISHABH Pack METAL ROLLING MILL OPERATOR RADIOLOGY REPORT PROCEDURE: MM TOMOSYNTHESIS SCREENING BI COMPARISON: MM TOMOSYNTHESIS SCREENING BI, 01/16/2024. MG MAMM [id number] [place] CAD, 08/11/2021. MG MAMM SCREEN [place] W CAD, 07/04/2020. MG MAMM BILSCRN W CAD DIG, 05/02/2015. INDICATIONS: Screening for malignant neoplasm Calculator Name NCI Breast Cancer Risk Assessment Tool 5 Year Breast Cancer Risk 1.10% Lifetime Breast Cancer Risk 3.20% Personal Breast Cancer No Personal Ovarian Cancer No Treatments None Family Cancers Mother with uterine cancer at age 55. LOCATION: [facility] BREAST COMPOSITION: The breasts are almost [...] M.D. Signed By:02/18/25 1554 DD/ 1553 TD/TT: Rn Documentation Specialist: La Pack EMPLOYMENT LAW SPECIALIST CLINISYNC IMAGING Final Result * Diabetic Retinopathy Screening - OU - Both Eyes (01/30/2025 3:23 PM EDT) Anatomical Region Laterality Modality Head Other Ian Rader MD OPHTH PHOTOGRAPHY Final Result * POCT glycosylated hemoglobin (Hb A1C) docked device (09/20/2024 10:56 AM EST) Hemoglobin A1C 6.1 Blood Venous blood specimen / Unknown 09/20/2024 10:56 AM EST Jhoana Cardoso NP POINT OF CARE TEST ENTER /EDIT ORDERABLES Final Result from Last 3 Months or Most Recently Relevant to Health Maintenance Insurance [employer] Care Teams Receiver Setter Relationship Specialty Start Date End Date Shaikh Sánchez MD [address] [place] [address] PCP - Linda MORALES 11/14/23 Ian Rader MD [address] [place] [address] PCP - General Family Medicine 09/11/24 Zamzam Wheeler NP [address] [place] [address] Nurse Practitioner Internal Medicine 01/16/24 La Pack NP [address] [place] [address] Nurse Practitioner Family Medicine 02/06/25
--- OUTSIDE RECORDS SUMMARY | 2025-08-27 12:36 | XMS_ITS | Encounter Summary ---
Author Organization [facility] Address [address] [place] [address] Care Team Providers Care Art Therapist Name Role Phone Shaikh KEV Sánchez Primary Care Provider [phone] Shaikh KEV Sánchez Unavailable Zamzam Wheeler BUTCHER Unavailable [phone] Shaikh KEV Sánchez Primary Care Provider [phone] Funmilayo Lombardo BOX SPRING MAKER Unavailable Gustavo Romero CAMP BOSS Unavailable Unavailable Kirstin Carreon CAMP BOSS Unavailable Ian Rader MD Primary Care Provider [phone] Jhoana Cardoso BUTCHER Unavailable [phone] Arturo Chanel MA Unavailable [phone] La Pack BUTCHER Unavailable [phone] Reason for Visit * Reason Comments Med Refill Encounter Details Date Type Department Care Team (Late st Contact Info) Description 10/28/2023 Refill [facility] [address] [place] [address] Shaikh Sánchez MD [address] [place] [address] Iron deficiency; Other bursitis of elbow, left [...] documented in this encounter Plan of Treatment Not on file documented as of this encounter Visit Diagnoses Diagnosis Iron deficiency Disorders of iron metabolism Other bursitis of elbow, left elbow documented in this encounter Care Teams Art Therapist Relationship Specialty Start Date End Date Shaikh Sánchez MD PCP - General Internal Medicine 07/05/23 01/15/24 Shaikh Sánchez MD [address] [place] [address] PCP - Linda MORALES 11/14/23 Shaikh Sánchez MD [address] [place] [address] PCP - General Internal Medicine 01/16/24 09/10/24 [place] [address] [place] [address] PCP - General Family Medicine 09/11/24 Zamzam Wheeler NP [address] [place] [address] Nurse Practitioner Internal Medicine 01/16/24 Funmilayo Lombardo, [facility] [address] [place] [address] Shipping Checker Brand Marketing Manager 06/28/24 07/04/24 Gustavo Romero LPN Licensed Practical Nurse Family Medicine 07/04/24 Kirstin Carreon LPN [address] [place] [address] Licensed Practical Nurse Family Medicine 07/27/2409/14 [place] [address] [place] [address] Nurse Practitioner Family Medicine 09/11/24 02/05/25 Arturo Chanel, [place] [address] [place] [address] Family Medicine 09/24/24 07/09/25 La Pack NP [address] [place] [address] Nurse Practitioner Family Medicine 02/06/25 documented as of this encounter
--- OUTSIDE RECORDS SUMMARY | 2025-08-27 12:36 | XMS_ITS | Encounter Summary ---
Author Organization [facility] Address [address] [place] [address] Care Team Providers Care Senior Software Qa Engineer Name Role Phone Shaikh KEV Sánchez Unavailable [phone] Zamzam Wheeler MACHINE SET UP Unavailable [phone] Shaikh KEV Sánchez Primary Care Provider [phone] Funmilayo Lombardo OUTBOUND CALL CENTER REPRESENTATIVE Unavailable Gustavo Romero PICKLING GRADER Unavailable Unavailable Kirstin Carreon PICKLING GRADER Unavailable Ian Rader MD Primary Care Provider [phone] Jhoana Cardoso MACHINE SET UP Unavailable [phone] Arturo Chanel MA Unavailable [phone] La Pack MACHINE SET UP Unavailable [phone] Encounter Details Date Type Department Care Team (Late st Contact Info) Description 03/12/2024 Orders Only [facility] [address] [place] [address] Shaikh Sánchez MD [address] [place] [address] Social History Tobacco Use Types Packs/Day Years [...] documented as of this encounter Care Teams Senior Software Qa Engineer Relationship Specialty Start Date End Date Shaikh Sánchez MD [address] [place] [address] PCP - Linda MORALES 11/14/23 Shaikh Sánchez MD [address] [place] [place] [address] PCP - General Internal Medicine 01/16/24 09/10/24 [place] [address] [place] [address] PCP - General Family Medicine 09/11/24 Zamzam Wheeler NP [address] [place] [address] Nurse Practitioner Internal Medicine 01/16/24 [place] [address] [place] [address] Taxicab Dispatcher Tin Can Feeder 06/28/24 07/04/24 Gustavo Romero LPN Licensed Practical Nurse Family Medicine 07/04/24 Kirstin Carreon LPN [address] [place] [address] Licensed Practical Nurse Family Medicine 07/27/2409/14 Jhoana Cardoso, GREG [address] [place] [address] Nurse Practitioner Family Medicine 09/11/24 02/05/25 Arturo Chanel MA [address] [place] [address] Family Medicine 09/24/24 07/09/25 La Pack NP [address] [place] [address] Nurse Practitioner Family Medicine 02/06/25 documented as of this encounter
--- OUTSIDE RECORDS SUMMARY | 2025-08-27 12:36 | XMS_ITS | Clinical Summary ---
Author Organization [facility] Address [address] [place] [address] Phone Care Team Providers Care Waiter/Waitress Club Name Role Phone Unavailable Primary Care Provider [...]
--- OUTSIDE RECORDS SUMMARY | 2025-08-27 12:36 | XMS_ITS | Encounter Summary ---
Author Organization [facility] Address [address] [place] [address] Care Team Providers Care Supervisor Sanding Name Role Phone Shaikh KEV Sánchez Primary Care Provider [phone] Shaikh KEV Sánchez Unavailable [phone] Zamzam Wheeler SENIOR JAVA DEVELOPER Unavailable [phone] Shaikh KEV Sánchez Primary Care Provider [phone] Funmilayo Lombardo FLATLOCK SEWING MACHINE OPERATOR Unavailable Gustavo Romero FINAL ASSEMBLY AND PACKING SUPERVISOR Unavailable Unavailable Kirstin Carreon FINAL ASSEMBLY AND PACKING SUPERVISOR Unavailable Ian Rader MD Primary Care Provider [phone] Jhoana Cardoso SENIOR JAVA DEVELOPER Unavailable [phone] Arturo Chanel MA Unavailable [phone] La Pack SENIOR JAVA DEVELOPER Unavailable [phone] Encounter Details Date Type Department Care Team (Late st Contact Info) Description 12/12/2023 Clinisync Result Encounter [facility] External Department Unsolicited Shaikh Sánchez MD [address] [place] [place] [address] Social History Tobacco Use Types Packs/Day Years [...] AM EST Narrative 12/21/2023 8:02 [place] [address] Respiratory Report Signed Patient: ZULEYKA CHAUDHRY MR#: [id number] : 1955 Acct:[id number] Age/Sex: 68 / F ADM Date: 12/12/23 Loc: CARD Attending Dr: Shaikh Gonzalo Hooker Ordering Physician: Shaikh Morro Sánchez Date of Service: 12/12/23 Procedure(s): RT pulmonary function test Accession Number(s): [id number] cc: [facility] Test Date: 2023-12-12 Pat Name: ZULEYKA CHAUDHRY Department: Room: - Gender: Female Distribution Operations Supervisor: Zaina Albarado RRT : 1955 Requested By: [id number] Order Number: [id number] Yani MD: Tur [place] Interpretive Statements Pulmonary function testing was [...] 12/21/23 0802 12/21/23 08 DD/ 0910 TD/TT: Flat Breakdown Processor: Procedure Note Radiology, Radiologist, - 12/21/2023 [place] [address] Respiratory Report Signed Patient: ZULEYKA CHAUDHRY MMR#: [id number] : 1955cct:[id number] Age/Sex: 68 / FADM Date: 12/12/23 Loc: CARD Attending Dr: Shaikh Gonzalo Hooker Ordering Physician: Shaikh Morro Sánchez Date of Service: 12/12/23 Procedure(s): RT pulmonary function test Accession Number(s): [id number] cc: [facility] Test Date: 2023-12-12 Pat Name: ZULEYKA CHAUDHRY Department: Room: - Gender: Female Distribution Operations Supervisor: Zaina Albarado RRT : 1955 Requested By: [id number] Order Number: [id number] Reading MD: Tru [place] Interpretive Statements Pulmonary [...] Dictated By: Tru Land D.O. Signed By:12/21/23 0812/21/23 08 DD/ 0910 TD/TT: Flat Breakdown Processor: Shaikh Gonzalo [facility] Final Result documented in this encounter Visit Diagnoses Not on filedocumented in this encounter Care Teams Supervisor Sanding Relationship Specialty Start Date End Date Shaikh Sánchez MD PCP - General Internal Medicine 07/05/23 01/15/24 Shaikh Sánchez MD [address] [place] [address] PCP - Linda MORALES 11/14/23 Shaikh Sánchez MD [address] [place] [address] PCP - General Internal Medicine 01/16/24 09/10/24 [place] [address] [place], [place] [address] PCP - General Family Medicine 09/11/24 Zamzam Wheeler NP [address] [place] [address] Nurse Practitioner Internal Medicine 01/16/24 [place] [address] [place] [address] Business [employer] Marketing Teacher Campus Recruiting Intern 06/28/24 07/04/24 Gustavo Romero LPN Licensed Practical Nurse Family Medicine 07/04/24 Kirstin Carreon LPN [address] [place] [address] Licensed Practical Nurse Family Medicine 07/27/2409/14 Jhoana Cardoso, GREG [address] [facility] [address] [place] [address] Nurse Practitioner Family Medicine 09/11/24 02/05/25 Arturo Chanel, CARMEN [address] [place] [address] Family Medicine 09/24/24 07/09/25 La Pack NP [address] [place] [address] Nurse Practitioner Family Medicine 02/06/25 documented as of this encounter
--- OUTSIDE RECORDS SUMMARY | 2025-08-27 12:36 | XMS_ITS | Encounter Summary ---
Author Organization [facility] Address [address] [place] [address] Care Team Providers Care Paper Mill Manager Name Role Phone Shaikh KEV Sánchez Unavailable [phone] Zamzam Wheeler INFORMATION TECHNOLOGY AUDIT MANAGER Unavailable Ian Rader MD Primary Care Provider [phone] Jhoana Cardoso NP Unavailable [phone] Arturo Chanel MA Unavailable [phone] La Pack NP Unavailable [phone] Encounter Details Date Type Department Care Team (Late st Contact Info) Description 12/11/2024 Abstract [facility] [address] [place] [address] Jhoana Cardoso NP Social History Tobacco Use [...] Noted Time PHQ-9 Depression Total Score: 1 04/25/20 24 3:39 PM EDT documented as of this encounter Care Teams Paper Mill Manager Relationship Specialty Start Date End Date Shaikh Sánchez MD [address] [place] [address] PCP - Linda MORALES 11/14/23 Ian Rader MD [address] [place] [address] PCP - General Family Medicine 09/11/24 Zamzam Wheeler NP [address] [place] [address] Nurse Practitioner Internal Medicine 01/16/24 Jhoana Cardoso NP [address] [place] [address] Nurse Practitioner Family Medicine 09/11/24 02/05/25 Arturo Chanel MA [address] [place] [address] Family Medicine 09/24/24 07/09/25 La Pack NP [address] [place] [address] Nurse Practitioner Family Medicine 02/06/25 documented as of this encounter
--- OUTSIDE RECORDS SUMMARY | 2025-08-27 12:36 | XMS_ITS | Encounter Summary ---
Author Organization [facility] Address [address] [facility] [place] [address] Care Team Providers Care Bakery Products Checker Name Role Phone Shaikh KEV Sánchez Unavailable [phone] Zamzam Wheeler PROOFING MACHINE OPERATOR Unavailable Ian Rader MD Primary Care Provider Jhoana Cardoso PROOFING MACHINE OPERATOR Unavailable Arturo Chanel MA Unavailable [phone] La Pack PROOFING MACHINE OPERATOR Unavailable [phone] Encounter Details Date Type Department Care Team (Late st Contact Info) Description 01/30/2025 [facility] [address] [place] [address] Ian Rader MD [address] [place] [address] Social History Tobacco Use Types Packs/Day Years [...] documented as of this encounter Care Teams Bakery Products Checker Relationship Specialty Start Date End Date Shaikh Sánchez MD [address] [place] [address] PCP - Linda MORALES 11/14/23 Ian Rader MD [address] [place] [address] PCP - General Family Medicine 09/11/24 Zamzam Wheeler NP [address] [place] [address] Nurse Practitioner Internal Medicine 01/16/24 Jhoana Cardoso NP [address] [place] [address] Nurse Practitioner Family Medicine 09/11/24 02/05/25 Arturo Chanel MA [address] [place] [address] Family Medicine 09/24/24 07/09/25 La Pack NP [address] [place] [address] Nurse Practitioner Family Medicine 02/06/25 documented as of this encounter
--- OUTSIDE RECORDS SUMMARY | 2025-08-27 12:36 | XMS_ITS | Encounter Summary ---
Author Organization [facility] Address [address] [place] [address] Care Team Providers Care Special Needs Bus Driver Name Role Phone Shaikh KEV Sánchez Primary Care Provider [phone] Shaikh KEV Sánchez Unavailable [phone] Zamzam Wheeler GAS MAIN FITTER HELPER Unavailable [phone] Shaikh KEV Sánchez Primary Care Provider [phone] Funmilayo Lombardo SOCIAL WELFARE ADMINISTRATOR Unavailable Gustavo Romero DEDICATED DRIVER Unavailable Unavailable Kirstin Crareon DEDICATED DRIVER Unavailable Ian Rader MD Primary Care Provider [phone] Jhoana Cardoso GAS MAIN FITTER HELPER Unavailable [phone] Arturo Chanel MA Unavailable [phone] La Pack GAS MAIN FITTER HELPER Unavailable [phone] Encounter Details Date Type Department Care Team (Late st Contact Info) Description 01/04/2024 Orders Only [facility] [address] [place] [address] Shaikh Sánchez MD [address] [place] [address] Social History Tobacco Use Types Packs/Day Years [...] on filedocumented in this encounter Care Teams Special Needs Bus Driver Relationship Specialty Start Date End Date Shaikh Sánchez MD PCP - General Internal Medicine 07/05/23 01/15/24 Shaikh Sánchez MD [address] [place] [address] PCP - Linda MORALES 11/14/23 Shaikh Sánchez MD [address] [place] [address] PCP - General Internal Medicine 01/16/24 09/10/24 [place] [address] [place], [place] [address] PCP - General Family Medicine 09/11/24 Zamzam Wheeler NP [address] [place] [address] Nurse Practitioner Internal Medicine 01/16/24 Funmilayo Lombardo, SOCIAL WELFARE ADMINISTRATOR [address] [place] [address] Bookmobile Driver Radiation Therapy Technician 06/28/24 07/04/24 Gustavo Romero LPN Licensed Practical Nurse Family Medicine 07/04/24 Kirstin Carreon LPN [address] [place] [address] Licensed Practical Nurse Family Medicine 07/27/2409/14 [place] [address] [place] [address] Nurse Practitioner Family Medicine 09/11/24 02/05/25 Arturo Chanel, [place] [address] [place] [address] Family Medicine 09/24/24 07/09/25 La Pack NP [address] [place] [address] Nurse Practitioner Family Medicine 02/06/25 documented as of this encounter
--- OUTSIDE RECORDS SUMMARY | 2025-08-27 12:36 | XMS_ITS | Patient Health Record ---
Author Organization [facility] [place] Address [address] [place] [address] Care Team Providers Care Director Of Teaching And Learning Name Role Phone Shaikh Sánchez MD Primary Care Provider Talhaa Avani Guardado Unavailable [phone] Reason For Referral No Information Problems Problem Type SNOMED Code ICD Code Onset Dates Problem Status W/U Status Risk Notes Problem Asthma (960630051) Asthma (J45.909) Active confirmed Problem COPD - Chronic obstructive pulmonary disease (48917164) COPD (chronic obstructive pulmonary disease) (J44.9) Active confirmed Plan Of Treatment No Information Insurance Providers Payer Name Payer Address Payer Phone Subscriber Number Group Number Insured Name Patient Relationship to Insured Coverage Start Date Coverage End Date [employer] PPO PLUS LOCAL PLAN [address] [place] [address] [id number] JULIAN MONTAÑO Self - patient is the insured
--- OUTSIDE RECORDS SUMMARY | 2025-08-27 12:37 | XMS_ITS | Encounter Summary ---
Author Organization [facility] Address [address] [place] [address] Care Team Providers Care Dot Net Developer Name Role Phone Shaikh KEV Sánchez Unavailable [phone] Zamzam Wheeler MODELING INSTRUCTOR Unavailable Ian Rader MD Primary Care Provider [phone] Arturo Chanel MA Unavailable [phone] La Pack NP Unavailable [phone] Encounter Details Date Type Department Care Team (Late st Contact Info) Description 05/07/2025 Abstract [facility] [address] [place] [place] [address] La Pack NP [address] [place] [address] Social History Tobacco Use Types Packs/Day Years [...] documented as of this encounter Care Teams Dot Net Developer Relationship Specialty Start Date End Date Shaikh Sánchez MD [address] [place] [address] PCP - Linda MORALES 11/14/23 Ian Rader MD [address] [place] [address] PCP - General Family Medicine 09/11/24 Zamzam Wheeler NP [address] [place] [address] Nurse Practitioner Internal Medicine 01/16/24 Arturo Chanel MA [address] [place] [address] Family Medicine 09/24/24 07/09/25 La Pack NP [address] [place] [address] Nurse Practitioner Family Medicine 02/06/25 documented as of this encounter
--- OUTSIDE RECORDS SUMMARY | 2025-08-27 12:37 | XMS_ITS | Encounter Summary ---
Author Organization [facility] Address [address] [place] [address] Care Team Providers Care Organizational Effectiveness Director Name Role Phone Shaikh KEV Sánchez Unavailable [phone] Zamzam Wheeler CONTRACT GRAPHIC DESIGNER Unavailable Ian Rader MD Primary Care Provider Arturo Chanel MA Unavailable [phone] La Pack NP Unavailable [phone] Encounter Details Date Type Department Care Team (Late st Contact Info) Description 06/05/2025 Orders Only [facility] [address] [facility] [place] [address] La Pack NP [address] [place] [address] Social History Tobacco Use Types Packs/Day Years [...] LABS (06/05/2025 9:11 AM EDT) La Pack CONTRACT GRAPHIC DESIGNER LAB CHG PERFORMABLES Final Resu lt documented in this encounter Visit Diagnoses Not on filedocumented in this encounter Additional Health Concerns Assessment Noted Time PHQ-9 Depression Total Score: 1 03/08/20 3:39 PM EDT documented as of this encounter Care Teams Organizational Effectiveness Director Relationship Specialty Start Date End Date Shaikh Sánchez MD [address] [place] [address] PCP - Goessel MA 11/14/23 Ian Rader MD [address] [place] [address] PCP - General Family Medicine 09/11/24 Zamzam Wheeler NP [address] [place] [address] Nurse Practitioner Internal Medicine 01/16/24 Arturo Chanel MA [address] [place] [address] Family Medicine 09/24/24 07/09/25 La Pack NP [address] [place] [address] Nurse Practitioner Family Medicine 02/06/25 documented as of this encounter
--- OUTSIDE RECORDS SUMMARY | 2025-08-27 12:42 | XMS_ITS | CCD ---
Author Organization [facility] Care Team Providers Care Credit Card Control Clerk Name Role Phone CHALO, DR GIANNA PACHECO [...] Unavailable SHAIKH SÁNCHEZ Primary Care Physician Windnagel, Zamzam Admitting Unavailable Windnagel, Zamzam Referring Unavailable Windnagel, Zamzam Attending Unavailable Windnagel, Zamzam Referring Unavailable Windnagel, Zamzam Attending Unavailable Windnagel, Zamzam Admitting Unavailable Shaikh Sánchez MD Unavailable [place] HEALTH AND WELLNESS INSTRUCTOR, Zamzam C Unavailable [phone] Shaikh Sánchez MD Primary Care Provider Kirstin Carreon LPN Unavailable Unavailable Ian Soares MD Primary Care Provider [phone] Daniel Cardoso NP Unavailable [phone] Gustavo Romero LPN Unavailable Unavailable [place] HEALTH AND WELLNESS INSTRUCTOR, Zamzam C Unavailable [phone] Arturo Chanel MA Unavailable Unavailable Walker HEALTH AND WELLNESS INSTRUCTOR-CDaniel Primary Care Provid er Ramos MD, Mohamad Admit Provider Kayla ANGULO, Daniel Attending Provider Sara ANGULO, Cecilia Other Provider Hernandez ANGULO, Suzette Other Provider Jeancarlos ANGULO, Ryan Other Provider Kelly JAIME, Ilana Other Provider Hubert Mcguire DO Other Provider Beni ANGULO, Dave Hidalgo Other Provider PROVIDER, UNKNOWN Attending Unavailable PROVIDER, UNKNOWN Admitting Unavailable Chalo ANGULO, Gianna Mir Primary Care Provider Unava ilable Liam HEALTH AND WELLNESS INSTRUCTOR, Zamzam Edmonds Unavailable Walker HEALTH AND WELLNESS INSTRUCTOR, Daniel Unavailable [phone] Ramone HEALTH AND WELLNESS INSTRUCTOR, La Unavailable Arturo Chanel MA Unavailable IAN SOARES Attending Unavailable RAMONE, LA Attending Unavailable RAMONE, LA Attending Unavailable RAMONE, LA Attending Unavailable DANIEL CARDOSO Attending UnavailDaniel Mcdermott Primary Care Unavaila ble Hernandez, Suzette Consulting Unavailable Ramos, Mohamad Admitting Unavailable Daniel Garza Attending Unavailable Ryan Arshad Consulting Unavailable Ilana Mendoza Consulting Unavailable Hubert Mcguire Jr Consulting UnavailDave Conn Consulting Unavaila ble Sara, Basem Consulting Unavailable Ramone HEALTH AND WELLNESS INSTRUCTOR-C, La Joe Primary Care Provider [phone] Ramone HEALTH AND WELLNESS INSTRUCTOR-C, La Joe Attending Provider Medications Current Medications Medication Drug Class(es) Dates Sig (Normalized) Sig (Original) Abrysvo 120 MCG/0.5ML reconstituted solution (8 sources) Start: 12-21-2024 Abrysvo 120 MCG/0.5ML reconstituted solution 12/21/2024 Active acetaminophen 500 mg oral capsule (3 sources) Start: 01-04-2025 take 1 capsule by mouth every six hours as needed Acetaminophen 500 mg capsule Active 500 MG PO Every 6 hours as needed January 04, 2025 1:00am Complies with drug therapy albuterol 0.83 mg/ml inhalation solution (20 sources) beta2-Adrenergic Agonist Start: 07-22-2025 End: 08-01-2025 take 1 puff(s) by inhalation four times daily as needed for wheezing Albuterol Sulfate 90 mcg/actuation HFA aerosol inhaler Active 2 PUFF INHALATION Four times daily as needed for shortness of breath or wheezing 8.5 August 01, 2025 8:50pm Complies with drug therapy Start: 07-18-2025 End: 08-01-2025 take 2.5 mg by inhalation every six hours Albuterol Sulfate 2.5 mg /3 mL (0.083 %) solution for nebulization Active 2.5 MG INHALATION Every 6 hours 1080 90 August 01, 2025 8:50pm Complies with drug therapy Start: 07-18-2025 End: 08-01-2025 take 1 puff(s) by inhalation every four hours Albuterol Sulfate 90 mcg/actuation HFA aerosol inhaler Discontinued 2 PUFF INHALATION Every 4 hours July 18, 2025 12:00am August 01, 2025 8:49pm Start: 02-12-2025 End: 07-09-2025 albuterol (2.5 MG/3ML) 0.083 % nebulizer solution Indications: Chronic obstructive pulmonary disease, unspecified COPD type (HCC) Take 3 mL (2.5 mg) by nebulization every 6 (six) hours if needed for wheezing 75 mL 1 06/09/2025 Active Start: 12-10-2024 End: 07-22-2025 Albuterol Sulfate 90 mcg/act uation HFA aerosol inhaler Discontinued INHALATION December 10, 2024 1:00am July 22, 2025 7:14pm Start: 06-21-2024 End: 02-25-2025 take 2 puff(s) [...] mg / clavulanate 125 mg oral tablet (10 sources) Penicillin-class Antibacterial Start: 01-24-20 End: 02-07-20 [...] PO Twice daily 6 December 14, 2024 1:00am January 04, 2025 10:14am Start: 09-20-2024 End: 09-30-2024 take 1 tablet by mouth in the morning amoxicillin-clavulanate (Augmentin) 875-125 MG tablet Indications: Non-recurrent acute serous otitis media of left ear Take 1 tablet (875 mg) by mouth in the morning and 1 tablet (875 mg) before bedtime. Do all this for 10 days. 20 tablet 09/20/2024 09/30/2024 Active bumetanide 1 mg oral tablet (1 source) Loop Diuretic Start: 08-22-2025 take 1 tablet by mouth once daily Bumetanide 1 mg tablet Active 1 MG PO Daily August 22, 2025 12:00am Complies with drug therapy busPIRone hydrochloride 7.5 mg oral tablet (7 sources) Start: 07-31-2025 take 1 tablet by mouth twice daily Buspirone 7.5 mg tablet Active 7.5 MG PO Twice daily July 31, 2025 12:00am Complies with drug therapy Start: 06-26-2025 End: 09-24-2025 take 1 tablet by mouth twice daily Buspirone 5 mg tablet Discontinued 5 MG PO Twice daily July 18, 2025 12:00am July 31, 2025 11:35am calcium carbonate 1250 mg / cholecalciferol 200 unt oral tablet (4 sources) Vitamin D take 1 tablet by mouth twice daily at mealtime calcium carbonate-vitamin D3 (CALCIUM 500 + D) 500 mg(1,250mg) -200 units per tablet Take 1 tablet by mouth 2 (two) times a day with meals. Active cephalexin 500 mg oral capsule (2 sources) Cephalosporin Antibacterial Start: 2024 End: 2024 take 1 capsule by mouth in the morning cephalexin (Keflex) 500 MG capsule Indications: Cellulitis of left lower extremity Take 1 capsule (500 mg) by mouth in the morning and 1 capsule (500 mg) before bedtime. Do all this for 7 days. 14 capsule 06/26/2025 07/03/2025 Active cholecalciferol 0.05 mg oral tablet (20 sources) Vitamin D Start: 2023 End: 2024 take 1 tablet by mouth once daily [...] Asthma with COPD (chronic obstructive pulmonary disease) ([facility]) Inhale 1 Inhalation Daily 3 each 1 05/06/2025 08/04/2025 Active Start: 02-25-2025 End: 05-06-2025 Aidxtztnfvv-Wqthsttzt-Pmtagt (Trelegy Ellipta) 200-62.5-25 MCG/ACT aerosol powder Indications: Asthma with COPD (chronic obstructive pulmonary disease) ([facility]) Inhale 1 Inhalation Daily 3 each 1 02/25/2025 05/06/2025 Discontinued (Reorder) Start: 02-25-2025 End: 05-26-2025 Pfsgkomksry-Kaquhqnir-Igmuqs (Trelegy Ellipta) 200-62.5-25 MCG/ACT aerosol powder Indications: Asthma with COPD (chronic obstructive pulmonary disease) ([facility]) Inhale 1 Inhalation Daily 3 each 1 02/25/2025 05/26/2025 Active Start: 08-27-2024 End: 02-25-2025 Edjbiivywlf-Atimnylhl-Opjulv (Trelegy Ellipta) 200-62.5-25 MCG/ACT aerosol powder Indications: Asthma with COPD (chronic obstructive pulmonary disease) ([facility]) Inhale 1 Inhalation Daily 3 each 1 08/27/2024 02/25/2025 Discontinued (Reorder) Start: 08-27-2024 Fluticasone-Um eclidin-Vilant (Trelegy Ellipta) 200-62.5-25 MCG/ACT aerosol powder Indications: Asthma with COPD (chronic obstructive pulmonary disease) ([facility]) Inhale 1 Inhalation Daily 3 each 1 08/27/2024 Active Start: 08-27-2024 End: 11-25-2024 Ryrapezpxxk-Ymfyzbyye-Uxkmyy (Trelegy Ellipta) 200-62.5-25 MCG/ACT aerosol powder Indications: Asthma with COPD (chronic obstructive pulmonary disease) ([facility]) Inhale 1 Inhalation Daily 3 each 1 08/27/2024 11/25/2024 Active Start: 06-11-2024 End: 08-27-2024 Lndcgfcdxwe-Lvhmdixfh-Miltfv (Trelegy Ellipta) 200-62.5-25 MCG/ACT aerosol powder Indications: Asthma with COPD (chronic obstructive pulmonary disease) ([facility]) Inhale 1 Inhalation Daily 3 each 1 06/11/2024 08/27/2024 Discontinued (Reorder) Start: 06-11-2024 End: 09-09-2024 Klrnktofodz-Ichjeskki-Jrgmqh (Trelegy Ellipta) 200-62.5-25 MCG/ACT aerosol powder Indications: Asthma with COPD (chronic obstructive pulmonary disease) ([facility]) Inhale 1 Inhalation Daily 3 each 1 06/11/2024 09/09/2024 Active Iasagrzhyug-Bqkgumhtr-Jigrac er (9 sources) Start: 07-18-2025 Lxzrmqucumd-Uyyilehch-Ytowmu er (Trelegy Ellipta) 200-62.5-25 mcg blister with device Active 1 INH INHALATION Daily 180 July 18, 2025 11:18am Complies with drug therapy Start: 01-04-2025 End: 07-18-2025 Mbxfmfcyewu-Npvgsphud-Qujazb er (Trelegy Ellipta) 200-62.5-25 mcg blister with device Discontinued INHALATION Twice daily January 04, 2025 10:12am July 18, 2025 11:20am Start: 01-04-2025 Fluticasone-Um eclidin-Vilanter (Trelegy Ellipta) 200-62.5-25 mcg blister with device Active INHALATION Twice daily January 04, 2025 9:12am Start: 12-10-2024 End: 01-04-2025 Rdqrafimpzp-Bdwpzrypz-Xpyczs er (Trelegy Ellipta) 200-62.5-25 mcg blister with device Discontinued INHALATION December 10, 2024 1:00am January 04, 2025 10:14am Start: 12-10-2024 End: 01-04-2025 Sncwosmximl-Dcivnhigt-Eayztj er (Trelegy Ellipta) 200-62.5-25 mcg blister with [...] mouth 2 (two) times a day. Active meloxicam 7.5 mg oral tablet (20 sources) Nonsteroidal Anti-inflammat ory Drug Start: 12-10-2024 End: 01-04-2025 take 1 tablet by mouth once daily Meloxicam 7.5 mg tablet Active 7.5 MG PO Daily January 04, 2025 10:13am Complies with drug therapy Start: 02-28-2019 End: 09-20-2024 take 1 tablet by mouth once daily meloxicam (MOBIC) 7.5 mg tablet Take 7.5 mg by mouth daily. 5 02/28/2019 Active multivitamin capsule (4 sources) take 1 capsule by mouth once daily multivitamin capsule Take 1 capsule by mouth daily. Active ondansetron 4 mg oral tablet (3 sources) Serotonin-3 Receptor Antagonist Start: take 1 tablet by mouth every six hours as needed Ondansetron Hcl 4 mg tablet Active 4 MG PO Every 6 hours as needed January 04, 2025 1:00am Complies with drug therapy PEG 3350 (Glycolax, Miralax) 4 gram packet (2 sources) PEG 3350 (Glycol ax, Miralax) 4 gram packet 17 g in the morning. Active polyethylene glycol 3350 95047 mg powder for oral solution (4 sources) Osmotic Laxative polyethylene gl ycol (GLYCOLAX) 17 gram packet Take 17 g by mouth daily. Active sertraline 50 mg oral tablet (20 sources) Serotonin Reuptake Inhibitor Start: take 2 tablets by mouth once daily Sertraline 50 mg tablet Active 0 PO Daily July 18, 2025 10:52am 100MG orally daily; Complies with drug therapy Start: 06-26-2025 End: 10-04-2025 take 1 tablet by mouth once daily sertraline (Zoloft) 100 MG tablet Indications: Depression, unspecified , Generalized anxiety disorder Take 1 tablet (100 mg) by mouth Daily 100 tablet 06/26/2025 10/04/2025 Active Start: 04-30-2024 End: 09-13-2025 take 1 tablet by mouth once daily Sertraline 50 mg tablet Discontinued 50 MG PO Daily January 04, 2025 10:14am July 18, 2025 10:56am spironolactone 25 mg oral tablet (4 sources) Aldosterone Antagonist take 1 tablet by mouth once daily spironolactone (ALDACTONE) 25 mg tablet Take 1 tablet by mouth daily. Active Completed/Discontinued Medications Medication Drug Class(es) Dates Sig (Normalized) Sig (Original) atorvastatin 40 mg oral tablet (20 sources) HMG-CoA Reductase Inhibitor Start: 01-09-2018 End: 09-13-2025 Atorvastatin 40 mg tablet Discontinued MG December 10, 2024 1:00am January 04, 2025 10:14am furosemide 40 mg oral tablet (7 sources) Loop Diuretic Start: 07-31-2025 End: 08-22-2025 take 1 tablet by mouth once daily Furosemide 40 mg tablet Discontinued 40 MG PO Daily July 31, 2025 12:00am August 22, 2025 9:44am Start: 06-26-2025 End: 07-31-2025 take 1 tablet by mouth once daily Furosemide 20 mg tablet Discontinued 20 MG PO Daily July 18, 2025 12:00am July 31, 2025 11:35am LORazepam 0.5 mg oral tablet (20 sources) Benzodiazepine Start: 07-28-2025 End: 08-22-2025 take 1 tablet by mouth once daily at bedtime as needed Lorazepam (Ativan) 0.5 mg tablet Discontinued 0.5 MG PO Daily at bedtime as needed July 28, 2025 12:00am August 22, 2025 9:27am Start: 01-04-2025 End: 07-28-2025 take 1 tablet by mouth three times daily as needed Lorazepam 0.5 mg tablet Discontinued 0.5 MG PO Three times daily as needed January 04, 2025 1:00am July 28, 2025 8:43pm End: 02-06-2025 take 1 tablet by mouth every six hours as needed for anxiety LORazepam (Ativan) 0.5 MG tablet Take 0.5 mg by mouth every 6 (six) hours if needed for anxiety 02/06/2025 Discontinued (Therapy completed) losartan potassium 50 mg oral tablet (20 sources) Angiotensin 2 Receptor Alysha Start: 09-20-2024 End: 09-20-2025 take 1 tablet by mouth once daily Losartan 50 mg tablet Discontinued 50 MG PO Daily January 04, 2025 10:12am August 06, 2025 2:00pm metFORMIN hydrochloride 500 mg oral tablet (20 sources) Biguanide Start: 04-30-2024 End: 09-13-2025 Metformin 500 mg tablet Discontinued MG December 10, 2024 1:00am January 04, 2025 10:14am take 1 tablet by angie th twice daily at mealtime metFORMIN (GLUCOPHAGE) 500 mg tablet Luis Alberto e 500 mg by mouth 2 (two) times a day with meals. Active omeprazole 20 mg delayed release oral capsule (20 sources) Proton Pump Inhibitor Start: 01-30-2024 End: 09-13-2025 Omeprazole 20 mg capsule,delayed release(DR/EC) Discontinued MG December 10, 2024 1:00am January 04, 2025 10:14am oseltamivir 30 mg oral capsule (4 sources) Neuraminidase Inhibitor Start: 12-14-2024 End: 01-04-2025 take 1 capsule by mouth twice daily Oseltamivir 30 mg Capsule Discontinued 30 MG PO Twice daily 4 2 December 14, 2024 1:00am January 04, 2025 10:14am predniSONE 20 mg oral tablet (4 sources) Start: 12-14-2024 End: 01-04-2025 take 2 tablets by mouth once daily Prednisone 20 mg Tablet Discontinued 40 MG PO Daily 4 2 December 14, 2024 1:00am January 04, 2025 10:14am Rsv Vac, Pref A And Pref B(Pf) (2 sources) Start: 07-18-2025 End: 07-28-2025 Rsv Vac, Pref A And Pref B(Pf) (Abrysvo (Pf)) 120 mcg/0.5 mL recon soln Discontinued ML IM July 18, 2025 12:00am July 28, 2025 8:42pm Problems Active Problems Problem Classification Problem Date Documented Da te Episodic/Chronic Administrative/social admission (7 sources) Other reduced mobility; Translations: [Impaired mobility and activities of daily living] Onset: 5 12-13-2024 Episodic Anxiety disorders (20 sources) Anxiety; Translations: [Anxiety disorder, unspecified] Onset: 5 12-24-2024 Chronic Aortic; peripheral; and visceral artery aneurysms (4 sources) Aneurysm of other specified arteries; Translations: [ANEURYSM OTHER SPECIFIED ARTERIES] Onset: 2 Chronic Aspiration pneumonitis; food/vomitus (13 sources) Aspiration pneumonia; Translations: [Pneumonitis due to inhalation of food and vomit] Onset: 5 12-10-2024 Episodic Asthma (20 sources) Asthma-chronic obstructive pulmonary disease overlap syndrome; Translations: [Asthma with COPD (chronic obstructive pulmonary disease) ([facility])] Onset: 4 08-27-2024 Chronic Chronic obstructive pulmonary disease and bronchiectasis (20 sources) Chronic obstructive pulmonary disease, unspecified; Translations: [Acute exacerbation of chronic obstructive airways disease] Onset: 9 12-10-2024 Chronic Deficiency and other anemia (20 sources) Iron 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; Translations: [Iron deficiency anemia secondary to blood loss (chronic)] Onset: 4 11-21-2023 Chronic Deficiency and other anemia (1 source) Anemia, unspecified; Translations: [ANEMIA UNSPECIFIED] Onset: 3 Episodic Diabetes mellitus with complications (2 sources) Polyneuropathy due to type 2 diabetes mellitus; Translations: [Type 2 diabetes mellitus with diabetic polyneuropathy] 01-14-2025 Chronic Diabetes mellitus without complication (20 sources) Type 2 diabetes mellitus without complications; Translations: [Type 2 diabetes mellitus without complication] Onset: 3 Chronic Disorders of lipid metabolism (20 sources) Hyperlipidemia; Translations: [Other hyperlipidemia] Onset: 4 11-21-2023 Chronic Esophageal disorders (2 sources) Gastroesophageal reflux disease without esophagitis; Translations: [Gastro-esophageal reflux disease without esophagitis] 10-22-2024 Chronic Essential hypertension (20 sources) Essential hypertension; Translations: [Essential (primary) hypertension] Onset: 4 01-26-2024 Chronic Mood disorders (20 sources) Recurrent major depression in full remission; Translations: [Major depressive disorder, recurrent, in full remission] Onset: 4 11-21-2023 Chronic Mood disorders (20 sources) Mood disorders; Translations: [Depression, unspecified] Onset: 5 03-08-2024 Nutritional deficiencies (20 sources) Vitamin D deficiency; Translations: [Vitamin D deficiency, unspecified] Onset: 4 06-21-2024 Chronic Nutritional deficiencies (7 sources) Iron deficiency; Translations: [Iron deficiency] Onset: 5 06-13-2025 Episodic Open wounds of extremities (1 source) Open wound of lower limb; Translations: [Unspecified open wound, right lower leg, initial encounter] 08-22-2025 Episodic Osteoarthritis (12 sources) Osteoarthritis; Translations: [Unspecified osteoarthritis, unspecified site] Onset: 5 04-01-2025 Chronic Other and unspecified benign neoplasm (4 sources) Benign neoplasm of cranial nerves; Translations: [BENIGN NEOPLASM OF CRANIAL NERVES] Onset: 2 Chronic Other and unspecified benign neoplasm (20 sources) Acoustic neuroma of right vestibular nerve; Translations: [Benign neoplasm of cranial nerves] Onset: 4 02-23-2024 Chronic Other and unspecified benign neoplasm (2 sources) Benign neoplasm of cranial nerve; Translations: [Benign neoplasm of cranial nerves] 01-14-2025 Chronic Other and unspecified benign neoplasm (20 sources) Other benign neoplasm of skin of right ear and external auricular canal; Translations: [Benign neoplasm of ear and external auditory canal] Onset: 4 06-21-2024 Episodic Other circulatory disease (4 sources) Low blood pressure; Translations: [Hypotension, unspecified] 12-10-2024 Episodic Other connective tissue disease (20 sources) Recurrent falls ; Translations: [Repeated falls] Onset: 4 02-23-2024 Episodic Other connective tissue disease (2 sources) Other bursitis of elbow, left elbow; Translations: [Other enthesopathy of elbow region] 09-11-2024 Episodic Other connective tissue disease (1 source) Bursitis of elbow; Translations: [Other bursitis of elbow, left elbow] 07-25-2024 Episodic Other ear and sense organ disorders (20 sources) Sensorineural hearing loss in right ear; Translations: [Unspecified sensorineural hearing loss] Onset: 1 03-08-2024 Chronic Other gastrointestinal disorders (20 sources) Occult blood in stools; Translations: [Other fecal abnormalities] Onset: 0 01-26-2024 Episodic Other nervous system disorders (20 sources) Spinal cord disease; Translations: [Disease of spinal cord, unspecified] Onset: 4 02-23-2024 Chronic Other nervous system disorders (20 sources) Disorder of nervous system; Translations: [Demyelinating disease of central nervous system, unspecified] Onset: 4 02-23-2024 Chronic Other nervous system disorders (1 source) Ataxia, unspecified; Translations: [ATAXIA UNSPECIFIED] Onset: 3 Episodic Other nervous system disorders (6 sources) Finding related to ability to move; Translations: [Other abnormalities of gait and mobility] Onset: 5 12-28-2024 Episodic Other nutritional; endocrine; and metabolic disorders (1 source) Abnormal weight loss; Translations: [ABNORMAL WEIGHT LOSS] Onset: 3 Episodic Other screening for suspected conditions (not mental disorders or infectious disease) (20 sources) Patient encounter status; Translations: [Encounter for screening mammogram for malignant neoplasm of breast] Onset: 4 11-21-2023 Episodic Otitis media and related conditions (2 sources) Acute non-suppurative otitis media - serous; Translations: [Acute serous otitis media, left ear] 09-20-2024 Episodic Residual codes; unclassified (4 sources) Tobacco user; Translations: [Tobacco use] 12-12-2024 Episodic Residual codes; unclassified (5 sources) Bilateral lower leg edema; Translations: [Localized edema] Onset: 5 06-26-2025 Episodic Residual codes; unclassified (5 sources) Bilateral lower limb edema; Translations: [Localized edema] 07-18-2025 Episodic Respiratory failure; insufficiency; arrest (adult) (20 sources) Acute respiratory failure; Translations: [Acute respiratory failure with hypoxia] Onset: 5 12-10-2024 Episodic Skin and subcutaneous tissue infections (7 sources) Cellulitis of left lower limb; Translations: [Cellulitis of left lower limb] Onset: 5 06-26-2025 Episodic Substance-related disorders (20 sources) Smoker; Translations: [Nicotine dependence, unspecified, uncomplicated] Onset: 4 Resolved: 5 11-21-2023 Chronic Thyroid disorders (14 sources) Acquired hypothyroidism; Translations: [Hypothyroidism, unspecified] Onset: 03-25-2025 Chronic Unclassified (1 source) R60.0 - Localized edema,S81.801A - Unspecified open wound, right lower leg, initial encounter,S81.802A - Unspecified open wound, left lower leg, initial encounter Past or Other Problems Problem Classification Problem Date Documented Da te Episodic/Chronic Gastrointestinal hemorrhage (4 sources) Rectal hemorrhage; Translations: [Hemorrhage of anus and rectum] Onset: 11-29-2019 11-29-2019 Episodic Influenza (20 sources) Influenza due to Influenza A virus; Translations: [Influenza due to other identified influenza virus with other respiratory manifestations] Onset: 12-09-2024 Resolved: 02-06-2025 12-10-2024 Episodic Open wounds of head; neck; and trunk (20 sources) Scalp laceration; Translations: [Laceration without foreign body of scalp, sequela] Onset: 01-23-2025 01-23-2025 Episodic Other and unspecified benign neoplasm (20 sources) Acoustic neuroma; Translations: [Benign neoplasm of cranial nerves] Onset: 01-26-2024 Resolved: 02-06-2025 02-23-2024 Chronic Other circulatory disease (3 sources) Hypotension, unspecified; Translations: [Hypotension, unspecified] Onset: 12-09-2024 12-14-2024 Episodic Residual codes; unclassified (3 sources) Tobacco use; Translations: [Tobacco use disorder] Onset: 12-09-2024 12-14-2024 Episodic Residual codes; unclassified (1 source) Other specified health status; Translations: [Other specified health status] Onset: 12-09-2024 Episodic Unclassified (4 sources) Onset: 11-29-2019 11-29-2019 Results Test Name Value Interpretation Reference Range Facility Globulin Calc (S) [Mass/Vol] Ordered By: La Pack on 08-12-2025 Globulin (S) [Mass/Vol] 3.9 g/dL F [facility] Glomerular filtration rate ( GFR) estimation in non- AmericanOrdered By: La Pack on 08-12-2025 GFR/1.73 sq M.predicted among non-blacks MDRD (S/P/Bld) [Vol rate/Area] mL/min/{1.73_m2} >=60 mL/min/1.73 m 2 [facility] - Chemistry and C hemistry - challengeOrdered By: La Pack on 08-12-2025 Albumin [Mass/Vol] 3.6 g/dL 3.4-5.0 [facility] ALP [Catalytic activity/Vol] 111 U/L 46-116 [facility] ALT [Catalytic activity/Vol] 29 U/L 14-59 [facility] AST [Catalytic activity/Vol] 15 U/L 15-37 [facility] Bilirubin [Mass/Vol] 0.3 mg/dL 0.2-1.0 [facility] Calcium [Mass/Vol] 9.1 mg/dL 8.5-10.1 [facility] Chloride [Moles/Vol] 102 mmol/L 98-107 [facility] CO2 [Moles/Vol] 34.6 mmol/L High 21.0-32.0 [facility] Creatinine [Mass/Vol] 0.73 mg/dL 0.55-1.02 [facility] Ferritin [Mass/Vol] 93.0 ng/mL 8.0-252.0 [facility] GFR/1.73 sq M.predicted MDRD (S/P/Bld) [Vol rate/Area] mL/min/{1.73_m2} >=60 mL/min/1.73 m 2 [facility] Glucose [Mass/Vol] 107 mg/dL High 74-106 [facility] Potassium [Moles/Vol] 4.2 mmol/L 3.5-5.1 [facility] Protein [Mass/Vol] 7.5 g/dL 6.4-8.2 [facility] Sodium [Moles/Vol] 144 mmol/L 136-145 [facility] Urea nitrogen [Mass/Vol] 27.0 mg/dL High 7.0-18.0 [facility] Urea nitrogen/Creatinine [Mass ratio] 37.0 mg/mg [facility] Serum or plasma albumin/glob ulin mass ratioOrdered By: La Pack on 08-12-2025 Albumin/Globulin [Mass ratio] 0.9 {ratio} [facility] Serum or plasma anion gap de terminationOrdered By: La Pack on 08-12-2025 Anion gap [Moles/Vol] 11.6 mmol/L [facility] ALL CBC WITH AUTO DIFFon BASOPHILS ABSOLUTE AUTO 0.[address] [facility] Basophils/100 WBC (Bld) 0.9 % 0.2 - 2.0 % [facility] Eosinophils/100 WBC (Bld) 1.3 % 0.9 - 7.0 % [facility] Erythrocyte distribution width (RBC) [Ratio] 15.4 % High 11.0 - 15.0 % [facility] Hematocrit (Bld) [Volume fraction] 39.8 % 36.0 - 48.0 % [facility] Hemoglobin (Bld) [Mass/Vol] 12 g/dL 12.0 - 16.0 g/dL [facility] IMMATURE GRANULOCYTES ABS AUTO 0.02 [facility] Immature granulocytes/100 WBC (Bld) 0.3 % 0.0 - 0.5 % [facility] Interpretation and review of laboratory results Abnormal [facility] LYMPHOCYTES ABSOLUTE AUTO 0.8 Low [facility] Lymphocytes/100 WBC (Bld) 11.3 % Low 20.5 - 60.0 % [facility] MCH (RBC) [Entitic mass] 27.1 pg 26. 7 - 34.0 pg [facility] MCHC (RBC) [Mass/Vol] 30.2 g/dL 29.9 - 35.2 g/dL [facility] MCV (RBC) [Entitic vol] 89.8 fL 81.0 - 99.0 fL [facility] MONOCYTES ABSOLUTE AUTO 0.[address] [facility] Monocytes/100 WBC (Bld) 7 % 1.7 - 12.0 % [facility] NEUTROPHILS ABSOLUTE AUTO 5.5 [facility] Neutrophils/100 WBC (Bld) 79.2 % High 43.0 - 75.0 % [facility] Platelet mean volume (Bld) [Entitic vol] 8.9 fL Low 9.5 - 13.5 fL [facility] TBH EO # 0.1 [facility] TB PLT 294 [facility] TB RBC 4.43 [facility] TB WBC 7 [facility] ALL THYROID STIM HORMONEon 0 5-12-2025 TSH Qn 2.663 m[IU]/L [facility] ALL THYROXINE (T4) FREEon Free T4 [Mass/Vol] 0.93 ng/dL 0.76 - 1. 46 ng/dL [facility] No Panel Informationon 03-25 [facility] NM ORLY PERF SPECT REST STRon 02-21-2025 [place] [address] Nuclear Medicine Report Signed Patient: JULIAN MONTAÑO MR#: [id number] : 1955 Acct:[id number] Age/Sex: 69 / F ADM Date: 02/20/25 Loc: NM Attending Dr: Krissy Cortez M.D. Ordering Physician: Krissy Cortez M.D. Date of Service: 02/20/25 Procedure(s): NM orly perf SPECT rest str Accession Number(s): [id number] cc: La Pack HEALTH AND WELLNESS INSTRUCTOR; Krissy Cortez M.D. Patient Name: JULIAN MONTAÑO MR#: [id number] : 1955 Exam Date: 02/20/2025 Ordering Doctor: [...] the study was pending per attending physician [facility]. For more details, please see separate [...] By: Katarzyna Vallecillo M.D. Signed By: 02/21/25 143 DD/ 30 TD/TT: Front Desk Supervisor: [facility] Radiology, Radiologist, MD - 02/21/2025 [place] [address] Nuclear Medicine Report Signed Patient: JULIAN MONTAÑO MR#: [id number] : 1955 Acct:[id number] Age/Sex: 69 / F ADM Date: 02/20/25 Loc: NM Attending Dr: Krissy Cortez M.D. Ordering Physician: Krissy Cortez M.D. Date of Service: 02/20/25 Procedure(s): NM orly perf SPECT rest str Accession Number(s): [id number] cc: La Pack HEALTH AND WELLNESS INSTRUCTOR; Krissy Cortez M.D. Patient Name: JULIAN MONTAÑO MR#: [id number] : 1955 Exam Date: 02/20/2025 Ordering Doctor: [...] the study was pending per attending physician [facility]. For more details, please see separate [...] By: Katarzyna Vallecillo M.D. Signed By: 02/21/25 143 DD/ 143 TD/TT: Front Desk Supervisor: [facility] Radiology Study observation (narrative) [facility] NM ORLY PERF SPECT REST STROr dered By: Radiologist Radiology on 02-21-2025 [facility] Work Phone: ALL CBC WITH AUTO DIFFon BASOPHILS ABSOLUTE AUTO 0.[address] [facility] Basophils/100 WBC (Bld) 0.6 % 0.2 - 2.0 % [facility] Eosinophils/100 WBC (Bld) 1.5 % 0.9 - 7.0 % [facility] Erythrocyte distribution width (RBC) [Ratio] 15.9 % High 11.0 - 15.0 % [facility] Hematocrit (Bld) [Volume fraction] 36.1 % 36.0 - 48.0 % [facility] Hemoglobin (Bld) [Mass/Vol] 11.6 g/dL Low 12.0 - 16.0 g/dL [facility] IMMATURE GRANULOCYTES ABS AUTO 0.04 High [facility] Immature granulocytes/100 WBC (Bld) 0.4 % 0.0 - 0.5 % [facility] Interpretation and review of laboratory results Abnormal [facility] LYMPHOCYTES ABSOLUTE AUTO 1.6 [facility] Lymphocytes/100 WBC (Bld) 15.8 % Low 20.5 - 60.0 % [facility] MCH (RBC) [Entitic mass] 28.7 pg 26. 7 - 34.0 pg [facility] MCHC (RBC) [Mass/Vol] 32.1 g/dL 29.9 - 35.2 g/dL [facility] MCV (RBC) [Entitic vol] 89.4 fL 81.0 - 99.0 fL [facility] MONOCYTES ABSOLUTE AUTO [address] [facility] Monocytes/100 WBC (Bld) 9.6 % 1.7 - 12.0 % [facility] NEUTROPHILS ABSOLUTE AUTO 7.4 High [facility] Neutrophils/100 WBC (Bld) 72.1 % 43.0 - 75.0 % [facility] Platelet mean volume (Bld) [Entitic vol] 9.1 fL Low 9.5 - 13.5 fL [facility] TBH EO # 0.2 [facility] TB PLT 298 [facility] TB RBC 4.04 Low [facility] TB WBC 10.2 [facility] MM TOMOSYNTHESIS SCREENING B Ion 02-18-2025 [place] [address] Mammography Report Signed Patient: JULIAN MONTAÑO MR#: [id number] : 1955 Acct:[id number] Age/Sex: 69 / F ADM Date: 02/18/25 Loc: MAMMO Attending Dr: La Pack NP Ordering Physician: La Pack NP Results: Date of Service: 02/18/25 Follow Up: Procedure(s): MM tomosynthesis screening BI Accession Number(s): [id number] cc: La Pack NP Patient Name: JULIAN MONTAÑO MR#: [id number] : 1955 Exam Date: 02/18/2025 Ordering Doctor: RISHABH Pack CNP RADIOLOGY REPORT PROCEDURE: MM TOMOSYNTHESIS SCREENING BI COMPARISON: MM TOMOSYNTHESIS SCREENING BI, 01/16/2024. MG MAMM SCREEN 3D [place] CAD, 08/11/2021. MG MAMM SCREEN [place] W CAD, 07/04/2020. MG MAMM [place] SCRN W CAD DIG, 05/02/2015. INDICATIONS: Screening for malignant neoplasm Calculator Name [facility] Breast Cancer Risk Assessment Tool 5 Year Breast Cancer Risk 1.10% Lifetime Breast Cancer Risk 3.20% Personal Breast Cancer No Personal Ovarian Cancer No Treatments None Family Cancers Mother with uterine cancer at age 55. LOCATION: [facility] BREAST COMPOSITION: The breasts are almost entirely [...] Signed By: 02/18/25 1554 DD/ 1553 TD/TT: Front Desk Supervisor: [facility] Radiology, Radiologist, MD - 02/18/2025 [place] [address] Mammography Report Signed Patient: JULIAN MONTAÑO MR#: [id number] : 1955 Acct:[id number] Age/Sex: 69 / F ADM Date: 02/18/25 Loc: MAMMO Attending Dr: La Pack NP Ordering Physician: La Pack NP Results: Date of Service: 02/18/25 Follow Up: Procedure(s): MM tomosynthesis screening BI Accession Number(s): [id number] cc: La Pack NP Patient Name: JULIAN MONTAÑO MR#: [id number] : 1955 Exam Date: 02/18/2025 Ordering Doctor: [...] uterine cancer at age 53. LOCATION: [facility] BREAST COMPOSITION: The breasts are almost entirely [...] Signed By: 02/18/25 1554 DD/ 1553 TD/TT: Front Desk Supervisor: [facility] Radiology Study observation (narrative) [facility] MM TOMOSYNTHESIS SCREENING B IOrdered By: Radiologist Radiology on 02-18-2025 [facility] Work Phone: Alanine aminotransferase [En zymatic activity/volume] in Serum or PlasmaOrdered By: Daniel Garza on 12-14-2024 ALT [Catalytic activity/Vol] Alanine aminotransferase [Enzymatic activity/volume] in Serum or Plasma High 7-52 [facility] Albumin [Mass/volume] in Ser um or Plasma by Bromocresol green (BCG) dye binding methoOrdered By: Daniel Garza on 12-14-2024 Albumin BCG dye [Mass/Vol] Albumin [Mass/volume] in Serum or Plasma by Bromocresol green (BCG) dye binding metho 3.5-5.7 [facility] Alkaline phosphatase [Enzyma tic activity/volume] in Serum or PlasmaOrdered By: Daniel Garza on 12-14-2024 ALP [Catalytic activity/Vol] Alkaline phosphatase [Enzymatic activity/volume] in Serum or Plasma 34-104 [facility] Aspartate aminotransferase [ Enzymatic activity/volume] in Serum or PlasmaOrdered By: Daniel Garza on 12-14-2024 AST [Catalytic activity/Vol] Aspartate aminotransferase [Enzymatic activity/volume] in Serum or Plasma 13-39 [facility] Basophils Auto (Bld) [#/Vol] Ordered By: Daniel Garza on 12-14-2024 Basophils (Bld) [#/Vol] Automated basoph il count 0.0-0.2 [facility] Basophils/100 WBC Auto (Bld) Ordered By: Daniel Garza on 12-14-2024 Basophils/100 WBC (Bld) Automated basophil % . [facility] Bilirubin.total [Mass/volume ] in Serum or PlasmaOrdered By: Daniel Garza on 12-14-2024 Bilirubin [Mass/Vol] Bilirubin.total [Mass/volume] in Serum or Plasma 0.3-1.0 [facility] Calcium [Mass/volume] in Ser um or PlasmaOrdered By: Daniel Garza on 12-14-2024 Calcium [Mass/Vol] Calcium [Mass/volume ] in Serum or Plasma 8.6-10.3 [facility] Carbon dioxide, total [Moles /volume] in Serum or PlasmaOrdered By: Daniel Garza on 12-14-2024 CO2 [Moles/Vol] Carbon dioxide, tota l [Moles/volume] in Serum or Plasma 21.0-31.0 [facility] Chloride [Moles/volume] in S idris or PlasmaOrdered By: Daniel Garza on 12-14-2024 Chloride [Moles/Vol] Chloride [Moles/volume] in Serum or Plasma Low 98-107 [facility] Complete Blood Count Auto Di ffon 12-14-2024 Basophils (Bld) [#/Vol] 0.0 10*3/uL Normal 0.0-0.2 [facility] Comment on above: Result Comment: PERF ORMED BY: [facility] [address] [place] [address] PATHOLOGIST [employer] MANDY ACUÑA M.D. Performed By: #### C MP, CBC ####[facility] [id number] [place] [address] [facility] Basophils/100 WBC (Bld) 0.2 % Normal . [facility] Comment on above: Performed By: #### C MP, CBC ####[address] Eosinophils (Bld) [#/Vol] 0.0 10*3/uL Normal 0.0-0.45 [facility] Comment on above: Performed By: #### C MP, CBC ####[address] Eosinophils/100 WBC (Bld) 0.0 % Normal . [facility] Comment on above: Performed By: #### C MP, CBC ####[address] Erythrocyte distribution width (RBC) [Ratio] 15.3 % Normal 11.9-15.3 [facility] Comment on above: Performed By: #### C MP, CBC ####[address] Hematocrit (Bld) [Volume fraction] 40.4 % Normal 34.0-46.4 [facility] Comment on above: Performed By: #### C MP, CBC ####[address] Hemoglobin (Bld) [Mass/Vol] 13.4 g/dL Normal 11.8-15.4 [facility] Comment on above: Performed By: #### C MP, CBC ####[address] Lymphocytes (Bld) [#/Vol] 0.6 10*3/uL Low 1.00-4.8 [facility] Comment on above: Performed By: #### C MP, CBC ####[address] Lymphocytes/100 WBC (Bld) 7.0 % Normal . [facility] Comment on above: Performed By: #### C MP, CBC ####[address] MCH (RBC) [Entitic mass] 28.5 pg Normal 24.7-34.3 [facility] Comment on above: Performed By: #### C MP, CBC ####[address] MCV (RBC) [Entitic vol] 85.6 fL Normal 80-100 [facility] Comment on above: Performed By: #### C MP, CBC ####[address] Mean Corpuscular HGB Conc 33.3 g/dL Normal 32.0-35.0 [facility] Comment on above: Performed By: #### C MP, CBC ####[address] Monocytes (Bld) [#/Vol] 0.7 10*3/uL Normal 0.0-0.8 [facility] Comment on above: Performed By: #### C MP, CBC ####[address] Monocytes/100 WBC (Bld) 8.2 % Normal . [facility] Comment on above: Performed By: #### C MP, CBC ####[address] Neutrophils (Bld) [#/Vol] 7.2 10*3/uL Normal 1.8-7.7 [facility] Comment on above: Performed By: #### C MP, CBC ####[address] Neutrophils/100 WBC (Bld) 84.6 % Normal . [facility] Comment on above: Performed By: #### C MP, CBC ####[address] NRBC% 0.1 /100{WBC} Normal 0-0.5 [facility] Comment on above: Performed By: #### C MP, CBC ####[address] Platelet mean volume (Bld) [Entitic vol] 7.4 fL Normal 6.3-10.7 [facility] Comment on above: Performed By: #### C MP, CBC ####[place] [id number] [facility] Platelets (Bld) [#/Vol] 276 10*3/uL Normal 150-450 [facility] Comment on above: Performed By: #### C MP, CBC ####[address] RBC (Bld) [#/Vol] 4.72 10*6/uL Normal 3.60-5.00 [facility] Comment on above: Performed By: #### C MP, CBC ####[place] [id number] [facility] WBC (Bld) [#/Vol] 8.6 10*3/uL Normal 3.8-11.6 [facility] Comment on above: Performed By: #### C MP, CBC ####[address] Comprehensive Metabolic Pane ana 12-14-2024 Albumin [Mass/Vol] 3.7 g/dL Normal 3.5-5.7 [facility] Comment on above: Performed By: #### C MP, CBC ####[address] Albumin/Globulin [Mass ratio] 1.2 {ratio} Normal [facility] Comment on above: Performed By: #### C MP, CBC ####[place] [id number] [facility] ALP [Catalytic activity/Vol] 84 U/L Normal 34-104 [facility] Comment on above: Performed By: #### C MP, CBC ####[place] [id number] [facility] ALT [Catalytic activity/Vol] 55 U/L High 7-52 [facility] Comment on above: Performed By: #### C MP, CBC ####[address] Anion gap [Moles/Vol] 12.7 mmol/L Normal 6.0-15.0 [facility] Comment on above: Performed By: #### C MP, CBC ####[place] [id number] [facility] AST [Catalytic activity/Vol] 29 U/L Normal 13-39 [facility] Comment on above: Performed By: #### C MP, CBC ####[place] [id number] [facility] Bilirubin [Mass/Vol] 0.6 mg/dL Normal 0.3-1.0 [facility] Comment on above: Performed By: #### C MP, CBC ####[place] [id number] [facility] Calcium [Mass/Vol] 9.2 mg/dL Normal 8.6-10.3 [facility] Comment on above: Performed By: #### C MP, CBC ####[address] Chloride [Moles/Vol] 93 mmol/L Low 98-107 [facility] Comment on above: Performed By: #### C MP, CBC ####[place] [id number] [facility] CO2 [Moles/Vol] 29.4 mmol/L Normal 21.0-31.0 [facility] Comment on above: Performed By: #### C MP, CBC ####[place] [id number] [facility] Creatinine [Mass/Vol] 0.81 mg/dL Normal 0.60-1.20 [facility] Comment on above: Performed By: #### C MP, CBC ####[place] [id number] [facility] Creatinine Clr Calc Pharmacy 66.51 Normal [facility] Comment on above: Result Comment: PERF ORMED BY: [facility] [address] [facility] [place] [address] PATHOLOGIST [employer] MANDY ACUÑA M.D. Performed By: #### C MP, CBC ####[place] [id number] [facility] GFR/1.73 sq M.predicted MDRD (S/P/Bld) [Vol rate/Area] mL/min/{1.73_m2} Normal [facility] Comment on above: Performed By: #### C MP, CBC ####[place] [id number] [facility] Globulin (S) [Mass/Vol] 3.2 g/dL Normal T [facility] Comment on above: Performed By: #### C MP, CBC ####[place] [id number] [facility] Glucose [Mass/Vol] 145 mg/dL High 70-100 [facility] Comment on above: Result Comment: [facility] Glucose Reference Range is dependent on time and content of last meal. Glucose of more than 200 mg/dL in a nonstressed, ambulatory subject supports the diagnosis of Diabetes Mellitus. ADA recommended reference range Performed By: #### C MP, CBC ####[place] [id number] [facility] Potassium [Moles/Vol] 4.1 mmol/L Normal 3.5-5.1 [facility] Comment on above: Performed By: #### C MP, CBC ####[place] [id number] [facility] Protein [Mass/Vol] 6.9 g/dL Normal 6.4-8.9 [facility] Comment on above: Performed By: #### C MP, CBC ####[place] [id number] [facility] Sodium [Moles/Vol] 131 mmol/L Low 136-145 [facility] Comment on above: Performed By: #### C MP, CBC ####[place] [id number] [facility] Urea nitrogen [Mass/Vol] 24 mg/dL Normal 7-25 [facility] Comment on above: Performed By: #### C MP, CBC ####[place] [id number] [facility] Creatinine [Mass/volume] in Serum or PlasmaOrdered By: Daniel Garza on 12-14-2024 Creatinine [Mass/Vol] Creatinine [Mass/volume] in Serum or Plasma 0.60-1.20 [facility] Eosinophils Auto (Bld) [#/Vo l]Ordered By: Daniel Garza on 12-14-2024 Eosinophils (Bld) [#/Vol] Automated eosinophil count 0.0-0.45 [facility] Eosinophils/100 WBC Auto (Bl d)Ordered By: Daniel Garza on 12-14-2024 Eosinophils/100 WBC (Bld) Automated eosinophil % . [facility] Erythrocyte distribution wid th Auto (RBC) [Ratio]Ordered By: Daniel Garza on 12-14-2024 Erythrocyte distribution width (RBC) [Ratio] Erythrocyte distribution width [Ratio] by Automated count 11.9-15.3 [facility] Globulin Calc (S) [Mass/Vol] Ordered By: Daniel Garza on 12-14-2024 Globulin (S) [Mass/Vol] Serum globulin measurement by calculation (mass/volume) [facility] Glucose Glucometer (BldC) [M ass/Vol]Ordered By: Daniel Garza on 12-14-2024 Glucose [Mass/Vol] Capillary blood glucose measurement by glucometer (mass/volume) [facility] Comment on above: Random Glucose Refer ence Range is dependent on time and content of last meal. Glucose of more than 200 mg/dL in a nonstressed, ambulatory subject supports the diagnosis of Diabetes Mellitus. Glucose Poct Glucometerson 0 12-14-2024 Glucose [Mass/Vol] 236 mg/dL Normal [facility] Comment on above: Result Comment: [facility] Glucose Reference Range is dependent on time and content of last meal. Glucose of more than 200 mg/dL in a nonstressed, ambulatory subject supports the diagnosis of Diabetes Mellitus. PERFORMED BY: [facility] [address] [place] [address] PATHOLOGIST [employer] MANDY ACUÑA M.D. Performed By: #### A BG #### Point of Care testing , Glucose [Mass/Vol] 154 mg/dL Normal [facility] Comment on above: Result Comment: [facility] Glucose Reference Range is dependent on time and content of last meal. Glucose of more than 200 mg/dL in a nonstressed, ambulatory subject supports the diagnosis of Diabetes Mellitus. PERFORMED BY: [facility] [address] [place] [address] PATHOLOGIST [employer] MANDY ACUÑA M.D. Performed By: #### G LULS #### Point of Care testing , Glucose [Mass/Vol] 105 mg/dL Normal [facility] Comment on above: Result Comment: [place] [facility] Glucose Reference Range is dependent on time and content of last meal. Glucose of more than 200 mg/dL in a nonstressed, ambulatory subject supports the diagnosis of Diabetes Mellitus. PERFORMED BY: [facility] [address] [place] [address] PATHOLOGIST [employer] MANDY ACUÑA M.D. Performed By: #### A BG #### Point of Care testing , Glucose [Mass/volume] in Ser um or PlasmaOrdered By: Daniel Garza on 12-14-2024 Glucose [Mass/Vol] Glucose [Mass/volume ] in Serum or Plasma High 70-100 [facility] Comment on above: ADA recommended refe rence rangeRandom Glucose Reference Range is dependent on time and content of last meal. Glucose of more than 200 mg/dL in a nonstressed, ambulatory subject supports the diagnosis of Diabetes Mellitus. Hematocrit Auto (Bld) [Volum e fraction]Ordered By: Daniel Garza on 12-14-2024 Hematocrit (Bld) [Volume fraction] Hematocrit [Volume Fraction] of Blood by Automated count 34.0-46.4 [facility] Hemoglobin [Mass/volume] in BloodOrdered By: Daniel Garza on 12-14-2024 Hemoglobin (Bld) [Mass/Vol] Hemoglobin [Mass/volume] in Blood 11.8-15.4 [facility] Leukocytes [#/volume] correc brendan for nucleated erythrocytes in Blood by Automated counOrdered By: Daniel Garza on 12-14-2024 WBC corrected for nucl RBC Auto (Bld) [#/Vol] Leukocytes [#/volume] corrected for nucleated erythrocytes in Blood by Automated coun 3.8-11.6 [facility] Lymphocytes Auto (Bld) [#/Vo l]Ordered By: Daniel Garza on 12-14-2024 Lymphocytes (Bld) [#/Vol] Lymphocytes [#/volume] in Blood by Automated count Low 1.00-4.8 [facility] Lymphocytes/100 WBC Auto (Bl d)Ordered By: Daniel Garza on 12-14-2024 Lymphocytes/100 WBC (Bld) Lymphocytes/100 leukocytes in Blood by Automated count . [facility] MCH Auto (RBC) [Entitic mass ]Ordered By: Daniel Garza on 12-14-2024 MCH (RBC) [Entitic mass] MCH [Entitic ma ss] by Automated count 24.7-34.3 [facility] MCHC Auto (RBC) [Mass/Vol]Or dered By: Daniel Garza on 12-14-2024 MCHC (RBC) [Mass/Vol] MCHC [Mass/volume] by Automated count 32.0-35.0 [facility] MCV Auto (RBC) [Entitic vol] Ordered By: Daniel Garza on 12-14-2024 MCV (RBC) [Entitic vol] MCV [Entitic vol ume] by Automated count 80-100 [facility] Monocytes Auto (Bld) [#/Vol] Ordered By: Daniel Garza on 12-14-2024 Monocytes (Bld) [#/Vol] Automated blood monocyte count 0.0-0.8 [facility] Monocytes/100 WBC Auto (Bld) Ordered By: Daniel Garza on 12-14-2024 Monocytes/100 WBC (Bld) Automated monocyte % . [facility] Neutrophils Auto (Bld) [#/Vo l]Ordered By: Daniel Garza on 12-14-2024 Neutrophils (Bld) [#/Vol] Neutrophils [#/volume] in Blood by Automated count 1.8-7.7 [facility] Neutrophils/100 WBC Auto (Bl d)Ordered By: Daniel Garza on 12-14-2024 Neutrophils/100 WBC (Bld) Automated neutrophil % . [facility] No Panel InformationOrdered By: Daniel Garza on 12-14-2024 Estimated GFR (CKD-EPI) > 60.0 mL/Min [facility] Creatinine Clearance (Chem 66.51 [facility] Nucleated erythrocytes [Pres ence] in Blood by Automated countOrdered By: Daniel Garza on 12-14-2024 Nucleated RBC Auto Ql (Bld) Nucleated erythrocytes [Presence] in Blood by Automated count 0-0.5 [facility] Platelet mean volume Auto (B ld) [Entitic vol]Ordered By: Daniel Garza on 12-14-2024 Platelet mean volume (Bld) [Entitic vol] Platelet mean volume [Entitic volume] in Blood by Automated count 6.3-10.7 [facility] Platelets Auto (Bld) [#/Vol] Ordered By: Daniel Garza on 12-14-2024 Platelets (Bld) [#/Vol] Platelets [#/vol ume] in Blood by Automated count 150-450 [facility] Potassium [Moles/volume] in Serum or PlasmaOrdered By: Daniel Garza on 12-14-2024 Potassium [Moles/Vol] Potassium [Moles/volume] in Serum or Plasma 3.5-5.1 [facility] Protein [Mass/volume] in Ser um or PlasmaOrdered By: Daniel Garza on 12-14-2024 Protein [Mass/Vol] Protein [Mass/volume ] in Serum or Plasma 6.4-8.9 [facility] RBC Auto (Bld) [#/Vol]Ordere d By: Daniel Garza on 12-14-2024 RBC (Bld) [#/Vol] Erythrocytes [#/volume] in Blood by Automated count 3.60-5.00 [facility] Serum or plasma albumin/glob ulin mass ratioOrdered By: Daniel Garza on 12-14-2024 Albumin/Globulin [Mass ratio] Serum or plasma albumin/globulin mass ratio [facility] Serum or plasma anion gap de terminationOrdered By: Daniel Garza on 12-14-2024 Anion gap [Moles/Vol] Serum or plasma an ion gap determination 6.0-15.0 [facility] Sodium [Moles/volume] in Ser um or PlasmaOrdered By: Daniel Garza on 12-14-2024 Sodium [Moles/Vol] Sodium [Moles/volume ] in Serum or Plasma Low 136-145 [facility] Urea nitrogen [Mass/volume] in Serum or PlasmaOrdered By: Daniel Garza on 12-14-2024 Urea nitrogen [Mass/Vol] Urea nitrogen [Mass/volume] in Serum or Plasma 06-07 [facility] WBC Auto (Bld) [#/Vol]Ordere d By: Daniel Kayla on 12-14-2024 WBC (Bld) [#/Vol] Leukocytes [#/volume ] in Blood by Automated count 3.8-11.6 [facility] Complete Blood Count Auto Di ffon 12-13-2024 Basophils (Bld) [#/Vol] 0.0 10*3/uL Normal 0.0-0.2 [facility] Comment on above: Result Comment: PERF ORMED BY: [facility] [address] [place] [address] PATHOLOGIST SL[employer] HANDLER MANDY ACUÑA M.D. Performed By: #### C BC, CMP ####[address] Basophils/100 WBC (Bld) 0.1 % Normal . T abilio [facility] Comment on above: Performed By: #### C BC, CMP ####[address] Eosinophils (Bld) [#/Vol] 0.0 10*3/uL Normal 0.0-0.45 [facility] Comment on above: Performed By: #### C BC, CMP ####[address] Eosinophils/100 WBC (Bld) 0.0 % Normal . [facility] Comment on above: Performed By: #### C BC, CMP ####[address] Erythrocyte distribution width (RBC) [Ratio] 15.4 % High 11.9-15.3 [facility] Comment on above: Performed By: #### C BC, CMP ####[address] Hematocrit (Bld) [Volume fraction] 40.5 % Normal 34.0-46.4 [facility] Comment on above: Performed By: #### C BC, CMP ####[address] Hemoglobin (Bld) [Mass/Vol] 13.4 g/dL Normal 11.8-15.4 [facility] Comment on above: Performed By: #### C BC, CMP ####[address] Lymphocytes (Bld) [#/Vol] 0.7 10*3/uL Low 1.00-4.8 [facility] Comment on above: Performed By: #### C JOBY, CMP ####[address] Lymphocytes/100 WBC (Bld) 6.4 % Normal . [facility] Comment on above: Performed By: #### C JOBY, CMP ####[address] MCH (RBC) [Entitic mass] 28.5 pg Normal 24.7-34.3 [facility] Comment on above: Performed By: #### C JOBY, CMP ####[address] MCV (RBC) [Entitic vol] 86.4 fL Normal 80-100 [facility] Comment on above: Performed By: #### C JOBY, CMP ####[address] Mean Corpuscular HGB Conc 33.0 g/dL Normal 32.0-35.0 [facility] Comment on above: Performed By: #### C BC, CMP ####[address] Monocytes (Bld) [#/Vol] 0.7 10*3/uL Normal 0.0-0.8 [facility] Comment on above: Performed By: #### C BC, CMP ####[address] Monocytes/100 WBC (Bld) 6.5 % Normal . [facility] Comment on above: Performed By: #### C JOBY, CMP ####[address] [address] [facility] Neutrophils (Bld) [#/Vol] 9.3 10*3/uL High 1.8-7.7 [facility] Comment on above: Performed By: #### C BC, CMP ####[address] [address] [facility] Neutrophils/100 WBC (Bld) 87.0 % Normal . [facility] Comment on above: Performed By: #### C JOBY, CMP ####[address] [address] [facility] NRBC% 0.1 /100{WBC} Normal 0-0.5 [facility] Comment on above: Performed By: #### C JOBY, CMP ####[address] [address] [facility] Platelet mean volume (Bld) [Entitic vol] 7.3 fL Normal 6.3-10.7 [facility] Comment on above: Performed By: #### C JOBY, CMP ####[address] [address] [facility] Platelets (Bld) [#/Vol] 302 10*3/uL Normal 150-450 [facility] Comment on above: Performed By: #### C JOBY, CMP ####[address] [address] [facility] RBC (Bld) [#/Vol] 4.68 10*6/uL Normal 3.60-5.00 [facility] Comment on above: Performed By: #### C JOBY, CMP ####[address] [address] [facility] WBC (Bld) [#/Vol] 10.6 10*3/uL Normal 3.8-11.6 [facility] Comment on above: Performed By: #### C BC, CMP ####[address] [address] [facility] Comprehensive Metabolic Pane ana 12-13-2024 Albumin [Mass/Vol] 3.8 g/dL Normal 3.5-5.7 [facility] Comment on above: Performed By: #### C BC, CMP ####[address] [address] [facility] Albumin/Globulin [Mass ratio] 1.2 {ratio} Normal [facility] Comment on above: Performed By: #### C BC, CMP ####[address] [address] [facility] ALP [Catalytic activity/Vol] 84 U/L Normal 34-104 [facility] Comment on above: Performed By: #### C BC, CMP ####[address] [address] [facility] ALT [Catalytic activity/Vol] 65 U/L High 7-52 [facility] Comment on above: Performed By: #### C BC, CMP ####[address] [address] [facility] Anion gap [Moles/Vol] 14.3 mmol/L Normal 6.0-15.0 [facility] Comment on above: Performed By: #### C BC, CMP ####[address] [address] [facility] AST [Catalytic activity/Vol] 38 U/L Normal 13-39 [facility] Comment on above: Performed By: #### C BC, CMP ####[address] [address] [facility] Bilirubin [Mass/Vol] 0.5 mg/dL Normal 0.3-1.0 [facility] Comment on above: Performed By: #### C BC, CMP ####[address] [address] [facility] Calcium [Mass/Vol] 8.9 mg/dL Normal 8.6-10.3 [facility] Comment on above: Performed By: #### C BC, CMP ####[address] [address] [facility] Chloride [Moles/Vol] 95 mmol/L Low 98-107 [facility] Comment on above: Performed By: #### C BC, CMP ####[place] [address] [address] CO2 [Moles/Vol] 30.8 mmol/L Normal 21.0-31.0 [facility] Comment on above: Performed By: #### C BC, CMP ####[place] [id number] [facility] Creatinine [Mass/Vol] 0.99 mg/dL Normal 0.60-1.20 [facility] Comment on above: Performed By: #### C BC, CMP ####[address] Creatinine Clr Calc Pharmacy 54.42 Normal [facility] Comment on above: Result Comment: PERF ORMED BY: [facility] [address] [place] [address] PATHOLOGIST [employer]ER MANDY ACUÑA M.D. Performed By: #### C BC, CMP ####[address] GFR/1.73 sq M.predicted MDRD (S/P/Bld) [Vol rate/Area] mL/min/{1.73_m2} Normal [facility] Comment on above: Performed By: #### C JOBY, CMP ####[place] [id number] [facility] Globulin (S) [Mass/Vol] 3.1 g/dL Normal [facility] Comment on above: Performed By: #### C BC, CMP ####[address] Glucose [Mass/Vol] 97 mg/dL Normal 70-100 [facility] Comment on above: Result Comment: [place] Glucose Reference Range is dependent on time and content of last meal. Glucose of more than 200 mg/dL in a nonstressed, ambulatory subject supports the diagnosis of Diabetes Mellitus. ADA recommended reference range Performed By: #### C BC, CMP ####[place] [id number] [facility] Potassium [Moles/Vol] 4.1 mmol/L Normal 3.5-5.1 [facility] Comment on above: Performed By: #### C BC, CMP ####[place] [address] [place] [address] [facility] Protein [Mass/Vol] 6.9 g/dL Normal 6.4-8.9 [facility] Comment on above: Performed By: #### C BC, CMP ####[place] [address] [place] [address] [facility] Sodium [Moles/Vol] 136 mmol/L Normal 136-145 [facility] Comment on above: Performed By: #### C BC, CMP ####[place] [address] [place] [address] [facility] Urea nitrogen [Mass/Vol] 22 mg/dL Normal 7-25 [facility] Comment on above: Performed By: #### C BC, CMP ####[place] [address] [place] [id number] [facility] Glucose Poct Glucometerson 0 12-13-2024 Commemt1 Glu2: Cleaned Meter Normal [facility] Comment on above: Result Comment: PERF ORMED BY: [facility] [address] [facility] [place] [address] PATHOLOGIST [employer]LER MANDY ACUÑA M.D. Performed By: #### G LULS ####Point of Care testing, Glucose [Mass/Vol] 277 mg/dL Normal [facility] Comment on above: Result Comment: [place] Glucose Reference Range is dependent on time and content of last meal. Glucose of more than 200 mg/dL in a nonstressed, ambulatory subject supports the diagnosis of Diabetes Mellitus. Performed By: #### G LULS ####Point of Care testing, Glucose [Mass/Vol] 141 mg/dL Normal [facility] Comment on above: Result Comment: [place] Glucose Reference Range is dependent on time and content of last meal. Glucose of more than 200 mg/dL in a nonstressed, ambulatory subject supports the diagnosis of Diabetes Mellitus. PERFORMED BY: [facility] [address] [facility] [place] [id number] PATHOLOGIST [employer]IVER HANDLER MANDY ACUÑA M.D. Performed By: #### G LULS ####Point of Care testing, Glucose [Mass/Vol] 150 mg/dL Normal [facility] Comment on above: Result Comment: [facility] Glucose Reference Range is dependent on time and content of last meal. Glucose of more than 200 mg/dL in a nonstressed, ambulatory subject supports the diagnosis of Diabetes Mellitus. PERFORMED BY: [place] [address] PATHOLOGIST [employer]IVER HANDLER MANDY ACUÑA M.D. Performed By: #### G LULS #### Point of Care testing , Glucose [Mass/Vol] 117 mg/dL Normal [facility] Comment on above: Result Comment: [facility] Glucose Reference Range is dependent on time and content of last meal. Glucose of more than 200 mg/dL in a nonstressed, ambulatory subject supports the diagnosis of Diabetes Mellitus. PERFORMED BY: [address] [address] PATHOLOGIST [employer]IVER [employer]LER MANDY ACUÑA M.D. Performed By: #### G LULS ####Point of Care testing, No Panel InformationOrdered By: Daniel Garza on 12-13-2024 Bedside Glucose Comment Glu2: cleaned meter [facility] Complete Blood Count Auto Di ffon 12-12-2024 Basophils (Bld) [#/Vol] 0.0 10*3/uL Normal 0.0-0.2 [facility] Comment on above: Result Comment: PERF ORMED BY: [address] [address] PATHOLOGIST [employer] MANDY ACUÑA M.D. Performed By: #### A BG #### Point of Care testing , Basophils/100 WBC (Bld) 0.0 % Normal . [facility] Comment on above: Performed By: #### A BG #### Point of Care testing , Eosinophils (Bld) [#/Vol] 0.0 10*3/uL Normal 0.0-0.45 [facility] Comment on above: Performed By: #### A BG #### Point of Care testing , Eosinophils/100 WBC (Bld) 0.0 % Normal . [facility] Comment on above: Performed By: #### A BG #### Point of Care testing , Erythrocyte distribution width (RBC) [Ratio] 15.8 % High 11.9-15.3 [facility] Comment on above: Performed By: #### A BG #### Point of Care testing , Hematocrit (Bld) [Volume fraction] 34.5 % Normal 34.0-46.4 [facility] Comment on above: Performed By: #### A BG #### Point of Care testing , Hemoglobin (Bld) [Mass/Vol] 11.3 g/dL Low 11.8-15.4 [facility] Comment on above: Performed By: #### A BG #### Point of Care testing , Lymphocytes (Bld) [#/Vol] 0.3 10*3/uL Low 1.00-4.8 [facility] Comment on above: Performed By: #### A BG #### Point of Care testing , Lymphocytes/100 WBC (Bld) 2.2 % Normal . [facility] Comment on above: Performed By: #### A BG #### Point of Care testing , MCH (RBC) [Entitic mass] 28.0 pg Normal 24.7-34.3 [facility] Comment on above: Performed By: #### A BG #### Point of Care testing , MCV (RBC) [Entitic vol] 85.4 fL Normal 80-100 [facility] Comment on above: Performed By: #### A BG #### Point of Care testing , Mean Corpuscular HGB Conc 32.8 g/dL Normal 32.0-35.0 [facility] Comment on above: Performed By: #### A BG #### Point of Care testing , Monocytes (Bld) [#/Vol] 0.6 10*3/uL Normal 0.0-0.8 [facility] Comment on above: Performed By: #### A BG #### Point of Care testing , Monocytes/100 WBC (Bld) 4.8 % Normal . [facility] Comment on above: Performed By: #### A BG #### Point of Care testing , Neutrophils (Bld) [#/Vol] 10.8 10*3/uL High 1.8-7.7 [facility] Comment on above: Performed By: #### A BG #### Point of Care testing , Neutrophils/100 WBC (Bld) 93.0 % Normal . [facility] Comment on above: Performed By: #### A BG #### Point of Care testing , NRBC% 0.0 /100{WBC} Normal 0-0.5 [facility] Comment on above: Performed By: #### A BG #### Point of Care testing , Platelet mean volume (Bld) [Entitic vol] 7.4 fL Normal 6.3-10.7 [facility] Comment on above: Performed By: #### A BG #### Point of Care testing , Platelets (Bld) [#/Vol] 282 10*3/uL Normal 150-450 [facility] Comment on above: Performed By: #### A BG #### Point of Care testing , RBC (Bld) [#/Vol] 4.04 10*6/uL Normal 3.60-5.00 [facility] Comment on above: Performed By: #### A BG #### Point of Care testing , WBC (Bld) [#/Vol] 11.6 10*3/uL Normal 3.8-11.6 [facility] Comment on above: Performed By: #### A BG #### Point of Care testing , Comprehensive Metabolic Pane ana 12-12-2024 Albumin [Mass/Vol] 3.6 g/dL Normal 3.5-5.7 [facility] Comment on above: Performed By: #### P HOS, CMP ####[facility] [place] [address] Albumin/Globulin [Mass ratio] 1.3 {ratio} Normal [facility] Comment on above: Performed By: #### P HOS, CMP ####[facility] [place], [place] [id number] [facility] ALP [Catalytic activity/Vol] 72 U/L Normal 34-104 [facility] Comment on above: Performed By: #### P HOS, CMP ####[address] ALT [Catalytic activity/Vol] 67 U/L High 7-52 [facility] Comment on above: Performed By: #### P HOS, CMP ####[address] Anion gap [Moles/Vol] 12.5 mmol/L Normal 6.0-15.0 [facility] Comment on above: Performed By: #### P HOS, CMP ####[address] AST [Catalytic activity/Vol] 41 U/L High 13-39 [facility] Comment on above: Performed By: #### P HOS, CMP ####[address] Bilirubin [Mass/Vol] 0.4 mg/dL Normal 0.3-1.0 [facility] Comment on above: Performed By: #### P HOS, CMP ####[address] Calcium [Mass/Vol] 8.3 mg/dL Low 8.6-10.3 [facility] Comment on above: Performed By: #### P HOS, CMP ####[address] Chloride [Moles/Vol] 101 mmol/L Normal 98-107 [facility] Comment on above: Performed By: #### P HOS, CMP ####[place] [id number] [facility] CO2 [Moles/Vol] 29.2 mmol/L Normal 21.0-31.0 [facility] Comment on above: Performed By: #### P HOS, CMP ####[address] Creatinine [Mass/Vol] 0.65 mg/dL Normal 0.60-1.20 [facility] Comment on above: Performed By: #### P HOS, CMP ####[place] [id number] [facility] Creatinine Clr Calc Pharmacy 67.88 Normal [facility] Comment on above: Performed By: #### P HOS, CMP ####[address] [address] [facility] GFR/1.73 sq M.predicted MDRD (S/P/Bld) [Vol rate/Area] mL/min/{1.73_m2} Normal [facility] Comment on above: Performed By: #### P HOS, CMP ####[place] [id number] [facility] Globulin (S) [Mass/Vol] 2.7 g/dL Normal [facility] Comment on above: Performed By: #### P HOS, CMP ####[address] Glucose [Mass/Vol] 123 mg/dL High 70-100 [facility] Comment on above: Result Comment: [facility] Glucose Reference Range is dependent on time and content of last meal. Glucose of more than 200 mg/dL in a nonstressed, ambulatory subject supports the diagnosis of Diabetes Mellitus. ADA recommended reference range Performed By: #### P HOS, CMP ####[place] [id number] [facility] Potassium [Moles/Vol] 3.7 mmol/L Normal 3.5-5.1 [facility] Comment on above: Performed By: #### P HOS, CMP ####[place] [id number] [facility] Protein [Mass/Vol] 6.3 g/dL Low 6.4-8.9 [facility] Comment on above: Performed By: #### P HOS, CMP ####[place] [id number] [facility] Sodium [Moles/Vol] 139 mmol/L Normal 136-145 [facility] Comment on above: Performed By: #### P HOS, CMP ####[address] [place] [address] [facility] Urea nitrogen [Mass/Vol] 16 mg/dL Normal 7-25 [facility] Comment on above: Performed By: #### P HOS, CMP ####[facility] [id number] [place] [id number] [facility] Glucose Poct Glucometerson 0 12-12-2024 Commemt1 Glu2: Cleaned Meter Normal [facility] Comment on above: Result Comment: PERF ORMED BY: [place] [address] PATHOLOGIST [employer]IVER HANDLER MANDY ACUÑA M.D. Performed By: #### G LULS #### Point of Care testing , Glucose [Mass/Vol] 114 mg/dL Normal [facility] Comment on above: Result Comment: [place] om Glucose Reference Range is dependent on time and content of last meal. Glucose of more than 200 mg/dL in a nonstressed, ambulatory subject supports the diagnosis of Diabetes Mellitus. Performed By: #### G LULS #### Point of Care testing , Glucose [Mass/Vol] 107 mg/dL Normal [facility] Comment on above: Result Comment: [place] om Glucose Reference Range is dependent on time and content of last meal. Glucose of more than 200 mg/dL in a nonstressed, ambulatory subject supports the diagnosis of Diabetes Mellitus. PERFORMED BY: [place] [address] PATHOLOGIST SLIVER HANDLER MANDY ACUÑA M.D. Performed By: #### G LULS ####Point of Care testing, Glucose [Mass/Vol] 177 mg/dL Normal [facility] Comment on above: Result Comment: [place] om Glucose Reference Range is dependent on time and content of last meal. Glucose of more than 200 mg/dL in a nonstressed, ambulatory subject supports the diagnosis of Diabetes Mellitus. PERFORMED BY: [place] [address] PATHOLOGIST SLIVER HANDLER MANDY ACUÑA M.D. Performed By: #### G LULS #### Point of Care testing , Glucose [Mass/Vol] 150 mg/dL Normal [facility] Comment on above: Result Comment: [facility] Glucose Reference Range is dependent on time and content of last meal. Glucose of more than 200 mg/dL in a nonstressed, ambulatory subject supports the diagnosis of Diabetes Mellitus. PERFORMED BY: [facility] [address] [place] [id number] PATHOLOGIST SLIVER HANDLER MANDY ACUÑA M.D. Performed By: #### G LULS #### Point of Care testing , Phosphate [Mass/volume] in S idris or PlasmaOrdered By: Daniel Garza on 12-12-2024 Phosphate [Mass/Vol] Phosphate [Mass/volume] in Serum or Plasma Low 2.5-4.5 [facility] Phosphoruson 12-12-2024 Phosphate [Mass/Vol] 2.0 mg/dL Low 2.5-4.5 [facility] Comment on above: Result Comment: PERF ORMED BY: [facility] [address] [place] [id number] PATHOLOGIST [employer]IVER HANDLER MANDY ACUÑA M.D. Performed By: #### P HOS, CMP ####[facility] [id number] [place] [id number] [facility] Arterial Blood Gason 025 ABG Base Excess -3.0 mmol/L Normal -3.0-3.0 [facility] Comment on above: Performed By: #### A BG #### Point of Care testing , ABG Frac Inspired O2 55 % Normal [facility] Comment on above: Performed By: #### A BG #### Point of Care testing , ABG Oxygen Content 6.9 mmol/L Normal 6.6-9.7 [facility] Comment on above: Performed By: #### A BG #### Point of Care testing , ABG Oxygen Saturation 98.1 % Normal 95.0-100.0 [facility] Comment on above: Performed By: #### A BG #### Point of Care testing , ABG PCO2 40.3 mm[Hg] Normal 35.0-45.0 [facility] Comment on above: Performed By: #### A BG #### Point of Care testing , ABG PEEP 8 cmH20 Normal [facility] Comment on above: Performed By: #### A BG #### Point of Care testing , ABG PH 7.36 Normal 7.35-7.45 [facility] Comment on above: Performed By: #### A BG #### Point of Care testing , ABG PO2 126.0 mm[Hg] Off scale high 80.0-100.0 [facility] Comment on above: Performed By: #### A BG #### Point of Care testing , ABG TV 420 mL Normal [facility] Comment on above: Performed By: #### A BG #### Point of Care testing , Respiratory Critical Normal [facility] Comment on above: Result Comment: Crit ical Value called on: 12/11/2024 at 04:26 PERFORMED BY: [facility] [address] [place] [address] PATHOLOGIST [employer] HANDLER MANDY ACUÑA M.D. Performed By: #### A BG #### Point of Care testing , Set Respiratory Rate 18 Normal [facility] Comment on above: Performed By: #### A BG #### Point of Care testing , VBG Draw Site Left Radial Normal [facility] Comment on above: Performed By: #### A BG #### Point of Care testing , Ventilator Mode AC Normal [facility] Comment on above: Performed By: #### A BG #### Point of Care testing , Arterial Blood GasOrdered By : Daniel Garza on 12-11-2024 CO2 [Moles/Vol] 23.4 mmol/L Normal 23.0-27.0 [facility] Comment on above: Performed By: #### A BG #### Point of Care testing , HCO3 (Bld) [Moles/Vol] 22.2 mmol/L Low 23.0-29.[address] [facility] Comment on above: Performed By: #### A BG #### Point of Care testing , Complete Blood Count Auto Di ffon 12-11-2024 Basophils (Bld) [#/Vol] 0.1 10*3/uL Normal 0.0-0.2 [facility] Comment on above: Result Comment: PERF ORMED BY: [facility] [place] [address] PATHOLOGIST [employer]ER MANDY ACUÑA M.D. Performed By: #### G LULS #### Point of Care testing , Basophils/100 WBC (Bld) 0.4 % Normal . [facility] Comment on above: Performed By: #### G LULS #### Point of Care testing , Eosinophils (Bld) [#/Vol] 0.0 10*3/uL Normal 0.0-0.45 [facility] Comment on above: Performed By: #### G LULS #### Point of Care testing , Eosinophils/100 WBC (Bld) 0.0 % Normal . [facility] Comment on above: Performed By: #### G LULS #### Point of Care testing , Erythrocyte distribution width (RBC) [Ratio] 16.3 % High 11.9-15.3 [facility] Comment on above: Performed By: #### G LULS #### Point of Care testing , Hematocrit (Bld) [Volume fraction] 32.9 % Low 34.0-46.4 [facility] Comment on above: Performed By: #### G LULS #### Point of Care testing , Hemoglobin (Bld) [Mass/Vol] 10.8 g/dL Low 11.8-15.4 [facility] Comment on above: Performed By: #### G LULS #### Point of Care testing , Lymphocytes (Bld) [#/Vol] 0.3 10*3/uL Low 1.00-4.8 [facility] Comment on above: Performed By: #### G LULS #### Point of Care testing , Lymphocytes/100 WBC (Bld) 1.7 % Normal . [facility] Comment on above: Performed By: #### G LULS #### Point of Care testing , MCH (RBC) [Entitic mass] 28.9 pg Normal 24.7-34.3 [facility] Comment on above: Performed By: #### G LULS #### Point of Care testing , MCV (RBC) [Entitic vol] 87.9 fL Normal 80-100 [facility] Comment on above: Performed By: #### G LULS #### Point of Care testing , Mean Corpuscular HGB Conc 32.9 g/dL Normal 32.0-35.0 [facility] Comment on above: Performed By: #### G LULS #### Point of Care testing , Monocytes (Bld) [#/Vol] 0.5 10*3/uL Normal 0.0-0.8 [facility] Comment on above: Performed By: #### G LULS #### Point of Care testing , Monocytes/100 WBC (Bld) 3.4 % Normal . [facility] Comment on above: Performed By: #### G LULS #### Point of Care testing , Neutrophils (Bld) [#/Vol] 14.5 10*3/uL High 1.8-7.7 [facility] Comment on above: Performed By: #### G LULS #### Point of Care testing , Neutrophils/100 WBC (Bld) 94.5 % Normal . [facility] Comment on above: Performed By: #### G LULS #### Point of Care testing , NRBC% 0.0 /100{WBC} Normal 0-0.5 [facility] Comment on above: Performed By: #### G LULS #### Point of Care testing , Platelet mean volume (Bld) [Entitic vol] 7.2 fL Normal 6.3-10.7 [facility] Comment on above: Performed By: #### G LULS #### Point of Care testing , Platelets (Bld) [#/Vol] 244 10*3/uL Normal 150-450 [facility] Comment on above: Performed By: #### G LULS #### Point of Care testing , RBC (Bld) [#/Vol] 3.74 10*6/uL Normal 3.60-5.00 [facility] Comment on above: Performed By: #### G LULS #### Point of Care testing , WBC (Bld) [#/Vol] 15.4 10*3/uL High 3.8-11.6 [facility] Comment on above: Performed By: #### G LULS #### Point of Care testing , Comprehensive Metabolic Pane ana 12-11-2024 Albumin [Mass/Vol] 3.4 g/dL Low 3.5-5.7 [facility] Comment on above: Performed By: #### G LULS #### Point of Care testing , Albumin/Globulin [Mass ratio] 1.6 {ratio} Normal [facility] Comment on above: Performed By: #### G LULS #### Point of Care testing , ALP [Catalytic activity/Vol] 69 U/L Normal 34-104 [facility] Comment on above: Performed By: #### G JAYLS #### Point of Care testing , ALT [Catalytic activity/Vol] 76 U/L High 7-52 [facility] Comment on above: Performed By: #### G JAYLS #### Point of Care testing , Anion gap [Moles/Vol] 11.6 mmol/L Normal 6.0-15.0 [facility] Comment on above: Performed By: #### G LULS #### Point of Care testing , AST [Catalytic activity/Vol] 49 U/L High 13-39 [facility] Comment on above: Performed By: #### G JAYLS #### Point of Care testing , Bilirubin [Mass/Vol] 0.4 mg/dL Normal 0.3-1.0 [facility] Comment on above: Performed By: #### G LULS #### Point of Care testing , Calcium [Mass/Vol] 8.1 mg/dL Low 8.6-10.3 [facility] Comment on above: Performed By: #### G LULS #### Point of Care testing , Chloride [Moles/Vol] 105 mmol/L Normal 98-107 [facility] Comment on above: Performed By: #### G LULS #### Point of Care testing , CO2 [Moles/Vol] 23.7 mmol/L Normal 21.0-31.0 [facility] Comment on above: Performed By: #### G LULS #### Point of Care testing , Creatinine [Mass/Vol] 0.74 mg/dL Normal 0.60-1.20 [facility] Comment on above: Performed By: #### G LULS #### Point of Care testing , Creatinine Clr Calc Pharmacy 67.88 Normal [facility] Comment on above: Performed By: #### G LULS #### Point of Care testing , GFR/1.73 sq M.predicted MDRD (S/P/Bld) [Vol rate/Area] mL/min/{1.73_m2} Normal [facility] Comment on above: Performed By: #### G LULS #### Point of Care testing , Globulin (S) [Mass/Vol] 2.1 g/dL Normal [facility] Comment on above: Performed By: #### G LULS #### Point of Care testing , Glucose [Mass/Vol] 134 mg/dL High 70-100 [facility] Comment on above: Result Comment: [place] Glucose Reference Range is dependent on time and content of last meal. Glucose of more than 200 mg/dL in a nonstressed, ambulatory subject supports the diagnosis of Diabetes Mellitus. ADA recommended reference range Performed By: #### G LULS #### Point of Care testing , Potassium [Moles/Vol] 4.3 mmol/L Normal 3.5-5.1 [facility] Comment on above: Performed By: #### G LULS #### Point of Care testing , Protein [Mass/Vol] 5.5 g/dL Low 6.4-8.9 [facility] Comment on above: Performed By: #### G LULS #### Point of Care testing , Sodium [Moles/Vol] 136 mmol/L Significant change down 136-145 [facility] Comment on above: Performed By: #### G LULS #### Point of Care testing , Urea nitrogen [Mass/Vol] 21 mg/dL Normal 7-25 [facility] Comment on above: Performed By: #### G LULS #### Point of Care testing , Glucose Poct Glucometerson 0 12-11-2024 Glucose [Mass/Vol] 132 mg/dL Normal [facility] Comment on above: Result Comment: [facility] Glucose Reference Range is dependent on time and content of last meal. Glucose of more than 200 mg/dL in a nonstressed, ambulatory subject supports the diagnosis of Diabetes Mellitus. PERFORMED BY: [address] [place] [address] PATHOLOGIST [employer] MANDY ACUÑA M.D. Performed By: #### G LULS #### Point of Care testing , Glucose [Mass/Vol] 123 mg/dL Normal [facility] Comment on above: Result Comment: [facility] Glucose Reference Range is dependent on time and content of last meal. Glucose of more than 200 mg/dL in a nonstressed, ambulatory subject supports the diagnosis of Diabetes Mellitus. PERFORMED BY: [facility] [address] [address] [place] [address] PATHOLOGIST [employer] MANDY ACUÑA M.D. Performed By: #### A BG #### Point of Care testing , Magnesiumon 12-11-2024 Magnesium [Mass/Vol] 2.3 mg/dL Normal 1.9-2.7 [facility] Comment on above: Result Comment: PERF ORMED BY: [address] [place] [address] PATHOLOGIST [employer] MANDY ACUÑA M.D. Performed By: #### G LULS #### Point of Care testing , Magnesium [Mass/volume] in S idris or PlasmaOrdered By: Daniel Garza on 12-11-2024 Magnesium [Mass/Vol] Magnesium [Mass/volume] in Serum or Plasma 1.9-2.7 [facility] No Panel InformationOrdered By: Daniel Garza on 12-11-2024 Arterial Blood Base Excess -3.0 mmol/L -3.0-3.0 [facility] Arterial Blood Oxygen Content 6.9 mmol/L 6.6-9.7 [facility] Arterial Blood Oxygen Saturation 98.1 % 95.0-100.0 [facility] Arterial Blood Partial Pressure CO2 40.3 mm[Hg] 35.0-45.0 [facility] Arterial Blood Partial Pressure O2 126.0 mm[Hg] Critically high 80.0-100.0 [facility] Arterial Blood pH 7.36 7.35-7.45 [facility] Blood Gas Critical Value See comment [facility] Comment on above: Critical Value hope d on: 12/11/2024 at 04:26 Blood Gas PEEP 8 cmH2O [facility] Blood Gas Sample Site Left radial Fi [facility] Blood Gas Set Respiration Rate 18 [facility] Blood Gas Tidal Volume 420 mL [facility] Blood Gas Ventilator Mode Ac [facility] FiO2 55 % [facility] Phosphoruson 12-11-2024 Phosphate [Mass/Vol] 2.6 mg/dL Normal 2.5-4.5 [facility] Comment on above: Performed By: #### G LULS #### Point of Care testing , Triglyceride [Mass/volume] i n Serum or PlasmaOrdered By: Soco Beasley on 12-11-2024 Triglyceride [Mass/Vol] Triglyceride [Mass/volume] in Serum or Plasma High 35-149 [facility] Comment on above: TRIG ATP III CLASSIF ICATIONTRIG less than 150 mg/dL NormalTRIG 150-199 mg/dL Borderline highTRIG 200-500 mg/dL High TRIG greater than 500 mg/dL Very highStandard traceable to the Center for Disease Conrtrol and Prevention (CDC) test method. Triglycerideson 12-11-2024 Triglyceride [Mass/Vol] 158 mg/dL High 35-149 [facility] Comment on above: Result Comment: TRIG ATP III CLASSIFICATION TRIG less than 150 mg/dL Normal TRIG 150-199 mg/dL Borderline high TRIG 200-500 mg/dL High TRIG greater than 500 mg/dL Very high Standard traceable to the Center for Disease Conrtrol and Prevention (CDC) test method. PERFORMED BY: [facility] [place] [address] PATHOLOGIST [employer] MANDY ACUÑA M.D. Performed By: #### T RIG #### [address] X-ray reportOrdered By: Roman Ugalde on 12-11-2024 Study report [facility] [place] [address] XRay Report Signed Patient: Julian Montaño MR#: [id number] : 1955 Acct:[id number] Age/Sex: 69 / F ADM Date: 5 Loc: 4C Room: [address] [place] [address] Type: ADM IN Attending Dr: Daniel Garza [...] Ugalde Jr., D.O.12/11/2024 8:33 AM Dictation Location: [place] [address] Transcribed By: [facility] 12/11/24 0833 Dictated By: Ryan Ugalde Jr, DO 12/11/24 0832 Signed By: 12/11/24 0833 [facility] XR chest 1V portableon 12-11 XR chest 1V portable [facility] [address] [place] [id number] XRay Report Signed Patient: Julian Montaño MR#: [id number] : 1955 Acct:[id number] Age/Sex: 69 / F ADM Date: 12/09/24 Loc: 4C Room: [address] [place] [address] Type: ADM IN Attending Dr: Daniel Garza [...] Ugalde Jr., D.O.12/11/2024 8:33 AM Dictation Location: [facility] Transcribed By: [facility] 12/11/24832 Dictated By: Ryan Ugalde Jr, DO 12/11/24831 Signed By: 12/11/24832 Normal [facility] Amphetamine Screen Ql (U)Ord ered By: Soco Beasley on 12-10-2024 Amphetamines Ql (U) Amphetamines screen Negativ e [facility] Arterial Blood Gason 025 ABG Base Excess -2.9 mmol/L Normal -3.0-3.0 [facility] Comment on above: Performed By: #### A BG #### Point of Care testing , ABG Frac Inspired O2 50 % Normal [facility] Comment on above: Performed By: #### A BG #### Point of Care testing , ABG Oxygen Content 6.8 mmol/L Normal 6.6-9.7 [facility] Comment on above: Performed By: #### A BG #### Point of Care testing , ABG Oxygen Saturation 97.3 % Normal 95.0-100.0 [facility] Comment on above: Performed By: #### A BG #### Point of Care testing , ABG PCO2 42.7 mm[Hg] Normal 35.0-45.0 [facility] Comment on above: Performed By: #### A BG #### Point of Care testing , ABG PEEP 5 cmH20 Normal [facility] Comment on above: Performed By: #### A BG #### Point of Care testing , ABG PH 7.34 Low 7.35-7.45 [facility] Comment on above: Performed By: #### A BG #### Point of Care testing , ABG PO2 99.2 mm[Hg] Normal 80.0-100.0 [facility] Comment on above: Performed By: #### A BG #### Point of Care testing , ABG TV 450 mL Normal [facility] Comment on above: Performed By: #### A BG #### Point of Care testing , CO2 [Moles/Vol] 24.0 mmol/L Normal 23.0-27.0 [facility] Comment on above: Performed By: #### A BG #### Point of Care testing , HCO3 (Bld) [Moles/Vol] 22.7 mmol/L Low 23.0-29.0 [facility] Comment on above: Performed By: #### A BG #### Point of Care testing , Respiratory Critical Normal [facility] Comment on above: Result Comment: Crit ical Value called on: 12/10/2024 at 06:05 PERFORMED BY: [address] [place] [address] PATHOLOGIST [employer] MANDY ACUÑA M.D. Performed By: #### A BG #### Point of Care testing , Set Respiratory Rate 18 Normal [facility] Comment on above: Performed By: #### A BG #### Point of Care testing , VBG Draw Site Left Radial Normal [facility] Comment on above: Performed By: #### A BG #### Point of Care testing , Ventilator Mode AC Normal [facility] Comment on above: Performed By: #### A BG #### Point of Care testing , ABG Base Excess -4.9 mmol/L Low -3.0-3.0 [facility] Comment on above: Performed By: #### G LUNETTIE #### Point of Care testing , ABG Frac Inspired O2 60 % Normal [facility] Comment on above: Performed By: #### G LULS #### Point of Care testing , ABG Oxygen Content 6.8 mmol/L Normal 6.6-9.7 [facility] Comment on above: Performed By: #### G LULS #### Point of Care testing , ABG Oxygen Saturation 98.2 % Normal 95.0-100.0 [facility] Comment on above: Performed By: #### G LULS #### Point of Care testing , ABG PCO2 47.5 mm[Hg] High 35.0-45.0 [facility] Comment on above: Performed By: #### G LULS #### Point of Care testing , ABG PEEP 5 cmH20 Normal [facility] Comment on above: Performed By: #### G LULS #### Point of Care testing , ABG PH 7.28 Low 7.35-7.45 [facility] Comment on above: Performed By: #### G LULS #### Point of Care testing , ABG PO2 140.9 mm[Hg] Off scale high 80.0-100.0 [facility] Comment on above: Performed By: #### G LULS #### Point of Care testing , ABG TV 500 mL Normal [facility] Comment on above: Performed By: #### G LULS #### Point of Care testing , CO2 [Moles/Vol] 23.3 mmol/L Normal 23.0-27.0 [facility] Comment on above: Performed By: #### G LULS #### Point of Care testing , HCO3 (Bld) [Moles/Vol] 21.8 mmol/L Low 23.0-29.0 [facility] Comment on above: Performed By: #### G LULS #### Point of Care testing , Respiratory Critical Normal [facility] Comment on above: Result Comment: Crit ical Value called on: 12/10/2024 at 00:12 PERFORMED BY: [facility] [place] [address] PATHOLOGIST [employer] MANDY ACUÑA M.D. Performed By: #### G LULS #### Point of Care testing , Set Respiratory Rate 18 Normal [facility] Comment on above: Performed By: #### G LULS #### Point of Care testing , VBG Draw Site Right Radial Normal [facility] Comment on above: Performed By: #### G LULS #### Point of Care testing , Ventilator Mode AC Normal [facility] Comment on above: Performed By: #### G LULS #### Point of Care testing , Barbiturates [Presence] in U rine by Screen methodOrdered By: Soco Beasley on 12-10-2024 Barbiturates Screen Ql (U) Barbiturates [Presence] in Urine by Screen method Negative [facility] Benzodiazepines Screen Ql (U )Ordered By: Soco Beasley on 12-10-2024 Benzodiazepines Ql (U) Benzodiazepines [Presence] in Urine by Screen method High Negative [facility] Benzoylecgonine [Presence] i n Urine by Screen methodOrdered By: Soco Beasley on 12-10-2024 Benzoylecgonine Screen Ql (U) Benzoylecgonine [Presence] in Urine by Screen method Negative [facility] Cannabinoids [Presence] in U rine by Screen methodOrdered By: Soco Beasley on 12-10-2024 Cannabinoids Screen Ql (U) Cannabinoids [Presence] in Urine by Screen method Negative [facility] Comment on above: These are unconfirme d results and should not be used for legal purposes. Drug Cut-Off Concentration: AMPH 1000 ng/mL MICHAEL 200 ng/mL JAVAN 200 ng/mL COCM 300 ng/mL OP 300 ng/mL PCP 25 ng/mL THC 20 ng/mL Complete Blood Count Auto Di ffon 12-10-2024 Basophils (Bld) [#/Vol] 0.1 10*3/uL Normal 0.0-0.2 [facility] Comment on above: Result Comment: PERF ORMED BY: [facility] [address] [place] [address] PATHOLOGIST [employer] MANDY ACUÑA M.D. Performed By: #### A BG #### Point of Care testing , Basophils/100 WBC (Bld) 0.5 % Normal . [facility] Comment on above: Performed By: #### A BG #### Point of Care testing , Eosinophils (Bld) [#/Vol] 0.0 10*3/uL Normal 0.0-0.45 [facility] Comment on above: Performed By: #### A BG #### Point of Care testing , Eosinophils/100 WBC (Bld) 0.0 % Normal . [facility] Comment on above: Performed By: #### A BG #### Point of Care testing , Erythrocyte distribution width (RBC) [Ratio] 15.5 % High 11.9-15.3 [facility] Comment on above: Performed By: #### A BG #### Point of Care testing , Hematocrit (Bld) [Volume fraction] 31.0 % Low 34.0-46.4 [facility] Comment on above: Performed By: #### A BG #### Point of Care testing , Hemoglobin (Bld) [Mass/Vol] 10.1 g/dL Low 11.8-15.4 [facility] Comment on above: Performed By: #### A BG #### Point of Care testing , Lymphocytes (Bld) [#/Vol] 0.2 10*3/uL Low 1.00-4.8 [facility] Comment on above: Performed By: #### A BG #### Point of Care testing , Lymphocytes/100 WBC (Bld) 1.2 % Normal . [facility] Comment on above: Performed By: #### A BG #### Point of Care testing , MCH (RBC) [Entitic mass] 28.4 pg Normal 24.7-34.3 [facility] Comment on above: Performed By: #### A BG #### Point of Care testing , MCV (RBC) [Entitic vol] 86.7 fL Normal 80-100 [facility] Comment on above: Performed By: #### A BG #### Point of Care testing , Mean Corpuscular HGB Conc 32.7 g/dL Normal 32.0-35.0 [facility] Comment on above: Performed By: #### A BG #### Point of Care testing , Monocytes (Bld) [#/Vol] 0.5 10*3/uL Normal 0.0-0.8 [facility] Comment on above: Performed By: #### A BG #### Point of Care testing , Monocytes/100 WBC (Bld) 3.1 % Normal . [facility] Comment on above: Performed By: #### A BG #### Point of Care testing , Neutrophils (Bld) [#/Vol] 14.4 10*3/uL High 1.8-7.7 [facility] Comment on above: Performed By: #### A BG #### Point of Care testing , Neutrophils/100 WBC (Bld) 95.2 % Normal . [facility] Comment on above: Performed By: #### A BG #### Point of Care testing , NRBC% 0.0 /100{WBC} Normal 0-0.5 [facility] Comment on above: Performed By: #### A BG #### Point of Care testing , Platelet mean volume (Bld) [Entitic vol] 7.0 fL Normal 6.3-10.7 [facility] Comment on above: Performed By: #### A BG #### Point of Care testing , Platelets (Bld) [#/Vol] 236 10*3/uL Normal 150-450 [facility] Comment on above: Performed By: #### A BG #### Point of Care testing , RBC (Bld) [#/Vol] 3.57 10*6/uL Low 3.60-5.00 [facility] Comment on above: Performed By: #### A BG #### Point of Care testing , WBC (Bld) [#/Vol] 15.2 10*3/uL High 3.8-11.6 [facility] Comment on above: Performed By: #### A BG #### Point of Care testing , Comprehensive Metabolic Pane ana 12-10-2024 Albumin [Mass/Vol] 3.4 g/dL Low 3.5-5.7 [facility] Comment on above: Performed By: #### A BG #### Point of Care testing , Albumin/Globulin [Mass ratio] 1.5 {ratio} Normal [facility] Comment on above: Performed By: #### A BG #### Point of Care testing , ALP [Catalytic activity/Vol] 69 U/L Normal 34-104 [facility] Comment on above: Performed By: #### A BG #### Point of Care testing , ALT [Catalytic activity/Vol] 71 U/L High 7-52 [facility] Comment on above: Performed By: #### A BG #### Point of Care testing , Anion gap [Moles/Vol] 10.3 mmol/L Normal 6.0-15.0 [facility] Comment on above: Performed By: #### A BG #### Point of Care testing , AST [Catalytic activity/Vol] 50 U/L High 13-39 [facility] Comment on above: Performed By: #### A BG #### Point of Care testing , Bilirubin [Mass/Vol] 0.4 mg/dL Normal 0.3-1.0 [facility] Comment on above: Performed By: #### A BG #### Point of Care testing , Calcium [Mass/Vol] 7.0 mg/dL Low 8.6-10.3 [facility] Comment on above: Performed By: #### A BG #### Point of Care testing , Chloride [Moles/Vol] 101 mmol/L Normal 98-107 [facility] Comment on above: Performed By: #### A BG #### Point of Care testing , CO2 [Moles/Vol] 22.0 mmol/L Normal 21.0-31.0 [facility] Comment on above: Performed By: #### A BG #### Point of Care testing , Creatinine [Mass/Vol] 0.64 mg/dL Normal 0.60-1.20 [facility] Comment on above: Performed By: #### A BG #### Point of Care testing , Creatinine Clr Calc Pharmacy 69.14 Normal [facility] Comment on above: Performed By: #### A BG #### Point of Care testing , GFR/1.73 sq M.predicted MDRD (S/P/Bld) [Vol rate/Area] mL/min/{1.73_m2} Normal [facility] Comment on above: Performed By: #### A BG #### Point of Care testing , Globulin (S) [Mass/Vol] 2.2 g/dL Normal [facility] Comment on above: Performed By: #### A BG #### Point of Care testing , Glucose [Mass/Vol] 151 mg/dL High 70-100 [facility] Comment on above: Result Comment: [facility] Glucose Reference Range is dependent on time and content of last meal. Glucose of more than 200 mg/dL in a nonstressed, ambulatory subject supports the diagnosis of Diabetes Mellitus. ADA recommended reference range Performed By: #### A BG #### Point of Care testing , Potassium [Moles/Vol] 3.3 mmol/L Low 3.5-5.1 [facility] Comment on above: Performed By: #### A BG #### Point of Care testing , Protein [Mass/Vol] 5.6 g/dL Low 6.4-8.9 [facility] Comment on above: Performed By: #### A BG #### Point of Care testing , Sodium [Moles/Vol] 130 mmol/L Low 136-145 [facility] Comment on above: Performed By: #### A BG #### Point of Care testing , Urea nitrogen [Mass/Vol] 14 mg/dL Normal 7-25 [facility] Comment on above: Performed By: #### A BG #### Point of Care testing , Drug Screen,Urineon 12-10-19 25 Amphetamine Screen,Urine Negative Normal Negative [facility] Comment on above: Performed By: #### U RDS #### [place] [address] [place] Barbiturate Screen,Urine Negative Normal Negative [facility] Comment on above: Performed By: #### U RDS #### [facility] [address] [place] [address] [place] Benzodiazepines Screen,Urine Positive High Negative [facility] Comment on above: Performed By: #### U RDS #### [facility] [address] [place] [address] [place] Cannabinoid Screen,Urine Negative Normal Negative [facility] Comment on above: Result Comment: Thes e are unconfirmed results and should not be used for legal purposes. Drug Cut-Off Concentration: AMPH 1000 ng/mL MICHAEL 200 ng/mL JAVAN 200 ng/mL COCM 300 ng/mL OP 300 ng/mL PCP 25 ng/mL THC 20 ng/mL PERFORMED BY: [place] [address] PATHOLOGIST [employer]IVER HANDLER MANDY ACUÑA M.D. Performed By: #### U RDS #### [address] Cocaine Screen,Urine Negative Normal Negative [facility] Comment on above: Performed By: #### U RDS #### [address] Opiate Screen,Urine Positive High Negative [facility] Comment on above: Performed By: #### U RDS #### [address] Phencyclidine Screen,Urine Negative Normal Negative [facility] Comment on above: Performed By: #### U RDS #### [address] ECH echo transthoracicon ECH echo transthoracic [facility] Main [place] [address] [place] [address] Echocardiogram Signed Patient: Julian Montaño MR#: [id number] [birth year] : 1955 Acct:[id number] Age/Sex: 69 / F ADM Date: 12/09/24 Loc: Room: [address] [place] [address] Type: ADM IN Attending Dr: Daniel Garza [...] MD 12/10/24 1712 Normal [facility] Glucose Poct Glucometerson 0 12-10-2024 Glucose [Mass/Vol] 135 mg/dL Normal [facility] Comment on above: Result Comment: [place] Glucose Reference Range is dependent on time and content of last meal. Glucose of more than 200 mg/dL in a nonstressed, ambulatory subject supports the diagnosis of Diabetes Mellitus. PERFORMED BY: [place] [address] PATHOLOGIST [employer]LER MANDY ACUÑA M.D. Performed By: #### G LULS #### Point of Care testing , Magnesiumon 12-10-2024 Magnesium [Mass/Vol] 1.7 mg/dL Low 1.9-2.7 [facility] Comment on above: Result Comment: PERF ORMED BY: [place] [address] PATHOLOGIST [employer] MANDY ACUÑA M.D. Performed By: #### U RDS #### [address] Opiates [Presence] in Urine by Screen methodOrdered By: Soco Beasley on 12-10-2024 Opiates Screen Ql (U) Opiates [Presence] in Urine by Screen method High Negative [facility] Phencyclidine Screen Ql (U)O rdered By: Soco Beasley on 12-10-2024 Phencyclidine Ql (U) Phencyclidine [Presence] in Urine by Screen method Negative [facility] Troponin I High Sensitivityo n 12-10-2024 Troponin I High Sensitivity 1309 Off scale high 0-15 [facility] Comment on above: Result Comment: Crit ical Result : Called to and read back by: VIOLA KAY at: 12/10/2024 07:21:46 by:CELESTINA The Troponin units of report have been changed to meet the Chest Pain Accreditation requirement, element EC5.M1l2. Troponin units are changed from pg/ml to ng/L. Also, the decimal is removed and results are in whole numbers. PERFORMED BY: [place] [address] PATHOLOGIST [employer]LER MANDY ACUÑA M.D. Performed By: #### G LULS #### Point of Care testing , Troponin I.cardiac [Mass/vol ume] in Serum or Plasma by Detection limit <= 0.01 ng/Ordered By: Soco Beasley on 12-10-2024 Troponin I.cardiac DL <= 0.01 ng/mL [Mass/Vol] Troponin I.cardiac [Mass/volume] in Serum or Plasma by Detection limit <= 0.01 ng/ Critically high 0-15 [facility] Comment on above: Critical Result : Ca lled to and read back by: VIOLA KAY at: 12/10/2024 07:21:46 by:CELESTINAThe Troponin units of report have been changed to meet the Chest Pain Accreditation requirement, element EC5.M1l2. Troponin units are changed from pg/ml to ng/L. Also, the decimal is removed and results are in whole numbers. X-ray reportOrdered By: Roman Ugalde on 12-10-2024 Study report [facility] Main [address] [address] XRay Report Signed Patient: Julian Montaño MR#: [id number] : 1955 Acct:[id number] Age/Sex: 69 / F ADM Date: 5 Loc: Room: [address] [place] [address] Type: ADM IN Attending Dr: Soco Beasley MD Copies to: Soco Beasley MD~ Ordering Provider: Soco Beasley MD Date of Service: 12/10/24 XR/XR chest 1V portable: Intubated SINGLE VIEW CHEST CLINICAL HISTORY: Transfer from [facility]. Following responsive. COMPARISON: Chest 12/09/2024 FINDINGS: Enteric [...] 12/10/2413 Dictated By: Ryan Ugalde Jr, DO 12/10/24 0912 Signed By: 12/10/2413 [facility] Study report [facility] [place] [place] [address] XRay Report Signed Patient: Julian Montaño MR#: [id number] : 1955 Acct:[id number] Age/Sex: 69 / F ADM Date: 5 Loc: Room: [address] [place] [address] Type: ADM IN Attending Dr: Soco Beasley [...] THE STOMACH. Impression dictated by: Rocky Corral Jr..O.12/10/2024 8:33 AM Dictation Location: RADIO-PC-23 Transcribed By: PWS 12/10/24 0833 Dictated By: Ryan Ugalde Jr, DO 12/10/24 0831 Signed By: 12/10/24 0833 [facility] X-ray reportOrdered By: Hima Toledo on 12-10-2024 Study report [facility] Main [address] [address] XRay Report Signed Patient: Julian Montaño MR#: [id number] : 1955 Acct:[id number] Age/Sex: 69 / F ADM Date: 5 Loc: 4C Room: [address] [place] [address] Type: ADM IN Attending Dr: Soco Beasley [...] Torsten Toledo M.D.12/10/2024 8:31 AM Dictation Location: [place] [address] Transcribed By: [facility] 12/10/24830 Dictated By: Torsten Toledo MD 12/10/2429 Signed By: 12/10/24 0831 [facility] Work Phone: XR abdomen 1Von 12-10-2024 XR abdomen 1V [facility] Main [address] [address] XRay Report Signed Patient: Julian Montaño MR#: [id number] [birth year] : 1955 Acct:[id number] Age/Sex: 69 / F ADM Date: 12/09/24 Loc: 4C Room: [address] [place] [address] Type: ADM IN Attending Dr: Soco Beasley [...] 8:33 AM Dictation Location: RADIO-PC-23 Transcribed By: [facility] 12/10/24 0833 Dictated By: Ryan Ugalde Jr, DO 12/10/24 0831 Signed By: 12/10/24 0833 Normal [facility] XR chest 1V portableon 12-10 XR chest 1V portable [facility] Main [place] [address] [place] [address] XRay Report Signed Patient: Julian Montaño MR#: [id number] [birth year] : 1955 Acct:[id number] Age/Sex: 69 / F ADM Date: 12/09/24 Loc: Room: [address] [place] [address] Type: ADM IN Attending Dr: Soco Beasley MD Copies to: Soco Beasley MD Ordering Provider: Soco Beasley MD Date of Service: 12/10/24 XR/XR chest 1V portable: Intubated SINGLE VIEW CHEST CLINICAL HISTORY: Transfer from [facility]. Following responsive. COMPARISON: Chest 12/09/2024 FINDINGS: Enteric tube tip below the level of the diaphragm. ET tube in satisfactory position. Heart appears normal in size. Bibasilar atelectasis/interstit ial changes. No consolidation pneumothorax pleural effusion or free air. XR/XR chest 1V portable IMPRESSION: TUBES IN SATISFACTORY POSITIONS. BIBASILAR ATELECTASIS/INTERSTIT IAL CHANGES. Impression dictated by: Ryan Ugalde Jr. D.O.12/10/2024 9:13 AM Dictation Location: RADIO-PC-23 Transcribed By: ANDREW 12/10/24912 Dictated By: Ryan Ugalde Jr, DO 12/10/24911 Signed By: 12/10/24912 Normal [facility] XR chest 1V portable [facility] Main [address] [address] XRay Report Signed Patient: Julian Montaño MR#: [id number] [birth year] : 1955 Acct:[id number] Age/Sex: 69 / F ADM Date: 12/09/24 Loc: Room: [address] [place] [address] Type: ADM IN Attending Dr: Soco Beasley [...] AM Dictation Location: RADIO--26 Transcribed By: ANDREW 12/10/24 08 Dictated By: Torsten Toledo MD 12/10/2429 Signed By: 12/10/24830 Normal [facility] Aerobic Cultureon 12-09-2024 Aerobic Culture Light Normal Respiratory Chase 2 Days Gram Stain Result 3+ White Blood Cells Rare Epithelial Cells 4+ Gram Positive Cocci in Chains AND PAIRS PERFORMED BY: [place] [address] PATHOLOGIST [employer] MANDY ACUÑA M.D. Normal [facility] Comment on above: Performed By: #### G LULS #### Point of Care testing , Aerobic cultureOrdered By: James ledezma Ramos on 12-09-2024 Bacteria identified Aer cx Nom (Unsp spec) Aerobic culture [facility] Anisocytosis LM Ql (Bld)Orde red By: Soco Beasley on 12-09-2024 Anisocytosis Ql (Bld) Anisocytosis [Presence] in Blood by Light microscopy [facility] Arterial Blood Gason 025 ABG Base Excess -4.7 mmol/L Low -3.0-3.0 [facility] Comment on above: Performed By: #### A BG #### Point of Care testing , ABG Frac Inspired O2 40 % Normal [facility] Comment on above: Performed By: #### A BG #### Point of Care testing , ABG Oxygen Content 6.5 mmol/L Low 6.6-9.7 [facility] Comment on above: Performed By: #### A BG #### Point of Care testing , ABG Oxygen Saturation 90.5 % Low 95.0-100.0 [facility] Comment on above: Performed By: #### A BG #### Point of Care testing , ABG PCO2 57.0 mm[Hg] Off scale high 35.0-45.0 [facility] Comment on above: Performed By: #### A BG #### Point of Care testing , ABG PEEP 5 cmH20 Normal [facility] Comment on above: Performed By: #### A BG #### Point of Care testing , ABG PH 7.23 Low 7.35-7.45 [facility] Comment on above: Performed By: #### A BG #### Point of Care testing , ABG PO2 66.7 mm[Hg] Low 80.0-100.0 [facility] Comment on above: Performed By: #### A BG #### Point of Care testing , ABG TV 450 mL Normal [facility] Comment on above: Performed By: #### A BG #### Point of Care testing , CO2 [Moles/Vol] 25.1 mmol/L Normal 23.0-27.0 [facility] Comment on above: Performed By: #### A BG #### Point of Care testing , HCO3 (Bld) [Moles/Vol] 23.3 mmol/L Normal 23.0-29.0 [facility] Comment on above: Performed By: #### A BG #### Point of Care testing , Respiratory Critical Normal [facility] Comment on above: Result Comment: Crit ical Value called on: 12/09/2024 at 21:27 PERFORMED BY: [address] [address] PATHOLOGIST SLIVER HANDLER MANDY ACUÑA M.D. Performed By: #### A BG #### Point of Care testing , Set Respiratory Rate 14 Normal [facility] Comment on above: Performed By: #### A BG #### Point of Care testing , VBG Draw Site Left Radial Normal [facility] Comment on above: Performed By: #### A BG #### Point of Care testing , Ventilator Mode AC Normal [facility] Comment on above: Performed By: #### A BG #### Point of Care testing , Band form neutrophils/100 WB C Manual cnt (Bld)Ordered By: Soco Beasley on 12-09-2024 Band form neutrophils/100 WBC (Bld) Peripheral white blood cell differential % bands, microscopic exam High 0-5 [facility] Blood Cultureon 12-09-2024 Bacteria identified Cx Nom (Bld) NO GROWTH 5 DAYS PERFORMED BY: [address] [place] [address] PATHOLOGIST SLIVER HANDLER MANDY ACUÑA M.D. Normal [facility] Comment on above: Performed By: #### G LULS #### Point of Care testing , Bacteria identified Cx Nom (Bld) NO GROWTH 5 DAYS PERFORMED BY: [address] [address] PATHOLOGIST [employer] MANDY ACUÑA M.D. Normal [facility] Comment on above: Performed By: #### G LULS #### Point of Care testing , Florinda cells [Presence] in Blo od by Light microscopyOrdered By: Soco Beasley on 12-09-2024 Florinda cells LM Ql (Bld) Florinda cells [Prese nce] in Blood by Light microscopy [facility] Comprehensive Metabolic Pane ana 12-09-2024 Albumin [Mass/Vol] 3.6 g/dL Normal 3.5-5.7 [facility] Comment on above: Performed By: #### A BG #### Point of Care testing , Albumin/Globulin [Mass ratio] 1.6 {ratio} Normal [facility] Comment on above: Performed By: #### A BG #### Point of Care testing , ALP [Catalytic activity/Vol] 78 U/L Normal 34-104 [facility] Comment on above: Result Comment: PERF ORMED BY: [facility] [address] [place] [address] PATHOLOGIST SLIVER HANDLER MANDY ACUÑA M.D. Performed By: #### A BG #### Point of Care testing , ALT [Catalytic activity/Vol] 82 U/L High 7-52 [facility] Comment on above: Performed By: #### A BG #### Point of Care testing , Anion gap [Moles/Vol] 8.6 mmol/L Normal 6.0-15.0 [facility] Comment on above: Performed By: #### A BG #### Point of Care testing , AST [Catalytic activity/Vol] 61 U/L High 13-39 [facility] Comment on above: Performed By: #### A BG #### Point of Care testing , Bilirubin [Mass/Vol] 0.4 mg/dL Normal 0.3-1.0 [facility] Comment on above: Performed By: #### A BG #### Point of Care testing , Calcium [Mass/Vol] 7.1 mg/dL Low 8.6-10.3 [facility] Comment on above: Performed By: #### A BG #### Point of Care testing , Chloride [Moles/Vol] 97 mmol/L Low 98-107 [facility] Comment on above: Performed By: #### A BG #### Point of Care testing , CO2 [Moles/Vol] 24.6 mmol/L Normal 21.0-31.0 [facility] Comment on above: Performed By: #### A BG #### Point of Care testing , Creatinine [Mass/Vol] 0.68 mg/dL Normal 0.60-1.20 [facility] Comment on above: Performed By: #### A BG #### Point of Care testing , GFR/1.73 sq M.predicted MDRD (S/P/Bld) [Vol rate/Area] mL/min/{1.73_m2} Normal [facility] Comment on above: Performed By: #### A BG #### Point of Care testing , Globulin (S) [Mass/Vol] 2.3 g/dL Normal [facility] Comment on above: Performed By: #### A BG #### Point of Care testing , Glucose [Mass/Vol] 186 mg/dL High 70-100 [facility] Comment on above: Result Comment: [place] Glucose Reference Range is dependent on time and content of last meal. Glucose of more than 200 mg/dL in a nonstressed, ambulatory subject supports the diagnosis of Diabetes Mellitus. ADA recommended reference range Performed By: #### A BG #### Point of Care testing , Potassium [Moles/Vol] 3.2 mmol/L Low 3.5-5.1 [facility] Comment on above: Performed By: #### A BG #### Point of Care testing , Protein [Mass/Vol] 5.9 g/dL Low 6.4-8.9 [facility] Comment on above: Performed By: #### A BG #### Point of Care testing , Sodium [Moles/Vol] 127 mmol/L Low 136-145 [facility] Comment on above: Performed By: #### A BG #### Point of Care testing , Urea nitrogen [Mass/Vol] 16 mg/dL Normal 7-25 [facility] Comment on above: Performed By: #### A BG #### Point of Care testing , Diff and CBCon 12-09-2024 Anisocytosis Ql (Bld) Slight Normal [facility] Comment on above: Performed By: #### A BG #### Point of Care testing , Band form neutrophils/100 WBC (Bld) 27 % High 0-5 [facility] Comment on above: Performed By: #### A BG #### Point of Care testing , Crenated RBC Slight Normal [facility] Comment on above: Performed By: #### A BG #### Point of Care testing , Erythrocyte distribution width (RBC) [Ratio] 15.4 % High 11.9-15.3 [facility] Comment on above: Performed By: #### A BG #### Point of Care testing , Hematocrit (Bld) [Volume fraction] 33.0 % Low 34.0-46.4 [facility] Comment on above: Performed By: #### A BG #### Point of Care testing , Hemoglobin (Bld) [Mass/Vol] 10.7 g/dL Low 11.8-15.4 [facility] Comment on above: Performed By: #### A BG #### Point of Care testing , Lymphocytes/100 WBC (Bld) 0 % Low 18-42 [facility] Comment on above: Performed By: #### A BG #### Point of Care testing , MCH (RBC) [Entitic mass] 28.1 pg Normal 24.7-34.3 [facility] Comment on above: Performed By: #### A BG #### Point of Care testing , MCV (RBC) [Entitic vol] 87.0 fL Normal 80-100 [facility] Comment on above: Performed By: #### A BG #### Point of Care testing , Mean Corpuscular HGB Conc 32.3 g/dL Normal 32.0-35.0 [facility] Comment on above: Performed By: #### A BG #### Point of Care testing , Microcytosis Slight Normal [facility] Comment on above: Performed By: #### A BG #### Point of Care testing , Monocytes/100 WBC (Bld) 2 % Normal 2-11 [facility] Comment on above: Performed By: #### A BG #### Point of Care testing , Platelet Estimate Normal Normal Normal [facility] Comment on above: Performed By: #### A BG #### Point of Care testing , Platelet mean volume (Bld) [Entitic vol] 6.9 fL Normal 6.3-10.7 [facility] Comment on above: Result Comment: PERF ORMED BY: [address] [place] [address] PATHOLOGIST [employer] HANDLER MANDY ACUÑA M.D. Performed By: #### A BG #### Point of Care testing , Platelet Morphology Normal Normal Normal [facility] Comment on above: Result Comment: PERF ORMED BY: [address] [place] [address] PATHOLOGIST [employer]ER MANDY ACUÑA M.D. Performed By: #### A BG #### Point of Care testing , Platelets (Bld) [#/Vol] 236 10*3/uL Normal 150-450 [facility] Comment on above: Performed By: #### A BG #### Point of Care testing , Poikilocytosis Slight Normal [facility] Comment on above: Performed By: #### A BG #### Point of Care testing , Polychromasia Slight Normal [facility] Comment on above: Performed By: #### A BG #### Point of Care testing , RBC (Bld) [#/Vol] 3.80 10*6/uL Normal 3.60-5.00 [facility] Comment on above: Performed By: #### A BG #### Point of Care testing , Segmented neutrophils/100 WBC (Bld) 71 % High 50-70 [facility] Comment on above: Performed By: #### A BG #### Point of Care testing , WBC (Bld) [#/Vol] 15.9 10*3/uL High 3.8-11.6 [facility] Comment on above: Performed By: #### A BG #### Point of Care testing , ECG 12 lead ECGon 12-09-2024 ECG 12 lead ECG [facility] Main [address] [address] Electrocardiograph Report Signed Patient: Julian Montaño MR#: [id number] [birth year] : 1955 Acct:[id number] Age/Sex: 69 / F ADM Date: 12/09/24 Loc: Room: [address] [place] [address] Type: ADM IN Attending Dr: Daniel Garza [...] block Abnormal ECG Confirmed by Krissy Cortez ([id number]) on 12/12/2024 12:01:02 AM Referred By: Electronically Signed By: Krissy Cortez Transcribed By: MUS Signed By Krissy Cortez MD 5 0001 Normal [facility] Erythrocyte morphology findi ng [Identifier] in BloodOrdered By: Soco Beasley on 12-09-2024 RBC morphology finding Nom (Bld) RBC morphology [facility] Gram Stainon 12-09-2024 Microscopic observation Gram stain Nom (Unsp spec) Gram Stain Result 3+ White Blood Cells Rare Epithelial Cells 4+ Gram Positive Cocci in Chains AND PAIRS PERFORMED BY: [place] [address] PATHOLOGIST [employer] MANDY ACUÑA M.D. Normal [facility] Comment on above: Performed By: #### G LULS #### Point of Care testing , Gram stain microscopyOrdered By: Soco Beasley on 12-09-2024 Microscopic observation Gram stain Nom (Unsp spec) Gram stain microscopy [facility] Laboratory - Microbiology an d Antimicrobial susceptibilityOrdered By: Soco Beasley on 12-09-2024 Bacteria identified Cx Nom (Bld) NO GROWTH 5 DAYS [facility] Bacteria identified Cx Nom (Bld) NO GROWTH 5 DAYS [facility] Lactate [Moles/volume] in Se rum or PlasmaOrdered By: Soco Beasley on 12-09-2024 Lactate [Moles/Vol] Lactate [Moles/volume] in Serum or Plasma 0.5-1.9 [facility] Comment on above: Lactic Acid referenc e range has been updated to 0.5 1.9 mmol/L and the critical range of 2.0 or greater. Lactic Acidon 12-09-2024 Lactate [Moles/Vol] 1.4 mmol/L Normal 0.5-1.9 [facility] Comment on above: Result Comment: Lact ic Acid reference range has been updated to 0.5 ? 1.9 mmol/L and the critical range of 2.0 or greater. PERFORMED BY: [address] [place] [address] PATHOLOGIST [employer] MANDY ACUÑA M.D. Performed By: #### G LULS #### Point of Care testing , Lactate [Moles/Vol] 1.3 mmol/L Normal 0.5-1.9 [facility] Comment on above: Result Comment: Lact ic Acid reference range has been updated to 0.5 ? 1.9 mmol/L and the critical range of 2.0 or greater. PERFORMED BY: [address] [place] [address] PATHOLOGIST [employer] HANDLER MANDY ACUÑA M.D. Performed By: #### G LULS #### Point of Care testing , Lymphocytes/100 WBC Manual c nt (Bld)Ordered By: Soco Beasley on 12-09-2024 Lymphocytes/100 WBC (Bld) Lymphocytes/100 leukocytes in Blood by Manual count Low 18-42 [facility] Microcytes LM Ql (Bld)Ordere d By: Soco Beasley on 12-09-2024 Microcytes Ql (Bld) Microcytes [Presence ] in Blood by Light microscopy [facility] Monocytes/100 WBC Manual cnt (Bld)Ordered By: Soco Beasley on 12-09-2024 Monocytes/100 WBC (Bld) Monocytes/100 leukocytes in Blood by Manual count 2-11 [facility] Platelet adequacy [Presence] in Blood by Light microscopyOrdered By: Soco Beasley on 12-09-2024 Platelets LM Ql (Bld) Platelet adequacy [Presence] in Blood by Light microscopy Normal [facility] Platelet morphology finding [Identifier] in BloodOrdered By: Soco Beasley on 12-09-2024 Platelet morphology finding Nom (Bld) Platelet morphology finding [Identifier] in Blood Normal [facility] Poikilocytosis [Presence] in Blood by Light microscopyOrdered By: Soco Beasley on 12-09-2024 Poikilocytosis LM Ql (Bld) Poikilocytosis [Presence] in Blood by Light microscopy [facility] Polychromasia [Presence] in Blood by Light microscopyOrdered By: Soco Beasley on 12-09-2024 Polychromasia LM Ql (Bld) Polychromasia [Presence] in Blood by Light microscopy [facility] Segmented neutrophils/100 WB C Manual cnt (Bld)Ordered By: Soco Beasley on 12-09-2024 Segmented neutrophils/100 WBC (Bld) Manual blood segmented neutrophils/100 leukocytes High 50-70 [facility] Triglycerideson 12-09-2024 Triglyceride [Mass/Vol] 63 mg/dL Normal 35-149 [facility] Comment on above: Result Comment: TRIG ATP III CLASSIFICATION TRIG less than 150 mg/dL Normal TRIG 150-199 mg/dL Borderline high TRIG 200-500 mg/dL High TRIG greater than 500 mg/dL Very high Standard traceable to the Center for Disease Conrtrol and Prevention (CDC) test method. PERFORMED BY: [facility] [address] [place] [address] PATHOLOGIST [employer]IVER HANDLER MANDY ACUÑA M.D. Performed By: #### G LULS #### Point of Care testing , Troponin I High Sensitivityo n 12-09-2024 Troponin I High Sensitivity 1309 Off scale high 0-15 [facility] Comment on above: Result Comment: Crit ical Result : Called to and read back by: VIOLA KAY at: 12/09/2024 23:07:02 by:GENA The Troponin units of report have been changed to meet the Chest Pain Accreditation requirement, element EC5.M1l2. Troponin units are changed from pg/ml to ng/L. Also, the decimal is removed and results are in whole numbers. PERFORMED BY: [facility] [place] [address] PATHOLOGIST [employer] HANDLER MANDY ACUÑA M.D. Performed By: #### A BG #### Point of Care testing , HbA1c (Bld) [Mass fraction]o n 09-20-2024 Interpretation and review of laboratory results Normal [facility] - Hematology and Cell countson 09-20-2024 HbA1c (Bld) [Mass fraction] 6.1 % [facility] Neurology Forms- [employer] Neurology Forms- Text [id number] #1.00TIFF Normal [facility] Consent for Treatmenton Consent for Treatment [id number]#1 .00TIFF Normal [facility] Physician Orderon 12-05-2023 Physician Order [id number]#1 .00TIFF Normal [facility] MRI Brain w/ + w/o [...] Contrast amount in ml's: 6 Normal [facility] MRI Spine Cervical w/o Contr bonnie [...] SANA Technologist: CORDELIA Technical Comments None Normal [facility] BUNon 11-30-2023 Urea nitrogen [Mass/Vol] 17 mg/dL Normal 5-21 [facility] Comment on above: Performed By: #### 1 [id number], [id number] #### [facility] [address] [place] [address] Consent for Treatmenton 11-14 Consent for Treatment [id number]#1 .00TIFF Normal [facility] Creatinineon 11-30-2023 Creatinine [Mass/Vol] 0.8 mg/dL Normal 0.5-1.3 [facility] Comment on above: Performed By: #### 1 [id number], [id number] #### [facility] [address] [place] [address] RAD - MRI Screening Formon 0 11-30-2023 RAD - MRI Screening Form [id number]#1 .00TIFF Normal [facility] eGFRon 11-30-2023 eGFR 79 mL/min/1.73 m2 Normal >=59 [facility] Comment on above: Order Comment: Order added by Discern Expert. Performed By: #### 1 [id number], [id number] #### [facility] [address] [place] [address] Physician Orderon 10-28-2023 Physician Order [id number]#1 .00TIFF Normal [facility] CBC AUTO DIFFon 01-05-2023 BASO # 0.1 103/ul Normal 0.0-0.1 [facility] Comment on above: Performed By: #### C BC #### [facility] [address] [place] [address] Dr. Stan Aceves Basophils/100 WBC (Bld) 0.7 % Normal 0.2-2.0 [facility] Comment on above: Performed By: #### C BC #### [facility] [address] [place] [address] Dr. Stan Aceves EO # 0.1 103/ul Normal 0.0-0.7 [facility] Comment on above: Performed By: #### C BC #### [facility] [address] [place] [address] Dr. Stan Aceves Eosinophils/100 WBC (Bld) 1.0 % Normal 0.9-7.0 [facility] Comment on above: Performed By: #### C BC #### [facility] [address] [place] [address] Dr. Stan Aceves Erythrocyte distribution width (RBC) [Ratio] 16.8 % Critically high 11.0-15.0 [facility] Comment on above: Performed By: #### C BC #### [facility] [address] [place] [address] Dr. Stan Aceves Hematocrit (Bld) [Volume fraction] 33.7 % Critically low 36.0-48.0 [facility] Comment on above: Performed By: #### C BC #### [facility] [address] [place] [address] Dr. Stan Aceves Hemoglobin (Bld) [Mass/Vol] 10.6 g/dL Critically low 12.0-16.0 [facility] Comment on above: Performed By: #### C BC #### [facility] [address] [place] [address] Dr. Stan Aceves IG # 0.03 10e3/ul Normal 0.00-0.03 [facility] Comment on above: Performed By: #### C BC #### [facility] [address] [place] [address] Dr. Stan Aceves IG % 0.3 % Normal 0.0-0.5 [facility] Comment on above: Performed By: #### C BC #### [facility] [address] [place] [address] Dr. Stan Aceves LYMPH # 0.9 103/ul Critically low 1.2-3.8 [facility] Comment on above: Performed By: #### C BC #### [facility] [address] [place] [address] Dr. Stan Aceves Lymphocytes/100 WBC (Bld) 9.9 % Critically low 20.5-60.0 [facility] Comment on above: Performed By: #### C BC #### [facility] [address] [place] [address] Dr. Stan Aceves MANUAL DIFF REQ NO Normal [facility] Comment on above: Performed By: #### C BC #### [facility] [address] [place] [address] Dr. Stan Aceves MCH (RBC) [Entitic mass] 25.7 pg Critically low 26.7-34 .0 [facility] Comment on above: Performed By: #### C BC #### [facility] [address] [place] [address] Dr. Stan Aceves MCHC (RBC) [Mass/Vol] 31.5 g/dL Normal 29.9-35.2 [facility] Comment on above: Performed By: #### C BC #### [facility] [address] [place] [address] Dr. Stan Aceves MCV (RBC) [Entitic vol] 81.6 fL Normal 81.0-99.0 [facility] Comment on above: Performed By: #### C BC #### [facility] [address] [place] [address] Dr. Stan Aceves MONO # 0.7 103/ul Normal 0.3-0.8 [facility] Comment on above: Performed By: #### C BC #### [facility] [address] [place] [address] Dr. Stan Aceves Monocytes/100 WBC (Bld) 7.3 % Normal 1.7-12.0 [facility] Comment on above: Performed By: #### C BC #### [facility] [address] [place] [address] Dr. Stan Aceves NEUT # 7.4 103/ul Critically high 1.4-6.5 [facility] Comment on above: Performed By: #### C BC #### [facility] [address] [place] [address] Dr. Stan Aceves Neutrophils/100 WBC (Bld) 80.8 % Critically high 43.0-75.0 [facility] Comment on above: Performed By: #### C BC #### [facility] [address] [place] [address] Dr. Stan Aceves Platelet mean volume (Bld) [Entitic vol] 8.2 fL Critically low 9.5-13.5 [facility] Comment on above: Performed By: #### C BC #### [facility] [address] [place] [address] Dr. Stan Aceves PLT 396 103/ul Normal 150-450 [facility] Comment on above: Performed By: #### C BC #### [facility] [address] [place] [address] Dr. Stan Aceves RBC 4.13 106/ul Critically low 4.20-5.40 [facility] Comment on above: Performed By: #### C BC #### [facility] [address] [place] [address] Dr. Stan Aceves WBC 9.2 103/ul Normal 4.0-11.0 [facility] Comment on above: Performed By: #### C BC #### [facility] [address] [place] [address] Dr. Stan Aceves GLYCOHEMOGLOBIN A1Con 2022 ADA RECOMMENDATION SEE BELOW Normal [facility] Comment on above: Result Comment: ADA RECOMMENDED LIMIT 4.0 - 6.0 ADA THERAPEUTIC TARGET < 7.0 ACTION SUGGESTED > 7.0 Performed By: #### A 1C #### [facility] [address] [place] [address] Dr. Stan Aceves Glucose [Mass/Vol] 126 mg/dL Normal [facility] Comment on above: Performed By: #### A 1C #### [facility] [address] [place] [address] Dr. Stan Aceves HbA1c (Bld) [Mass fraction] 6.0 % Normal 4.5-6.2 [facility] Comment on above: Performed By: #### A 1C #### [facility] [address] [place] [address] Dr. Stan Aceves IRONon 01-05-2023 Iron [Mass/Vol] 36.0 ug/dL Critically low 50.0-170.0 [facility] Comment on above: Performed By: #### I KAM #### [facility] [address] [place] [address] Dr. Stan Acvees MICROALBUMIN, RAND URon 12-16 mALB <1.3 Normal <=30.0 [facility] Comment on above: Performed By: #### M ALBR #### [facility] [address] [place] [address] Dr. Stan Aceves PROF 14(COMP METB)on 023 Albumin [Mass/Vol] 3.5 g/dL Normal 3.4-5.0 [facility] Comment on above: Performed By: #### T 4, CMP, TSH #### [facility] [address] [place] [address] Dr. Satn Aceves Albumin/Globulin [Mass ratio] 1.0 {ratio} Normal [facility] Comment on above: Performed By: #### T 4, CMP, TSH #### [facility] [address] [address] [address] Stan Aceves ALP [Catalytic activity/Vol] 105 U/L Normal 46-116 [facility] Comment on above: Performed By: #### T 4, CMP, TSH #### [facility] [address] [address] [address] Stan Aceves ALT [Catalytic activity/Vol] 20 U/L Normal 14-59 [facility] Comment on above: Performed By: #### T 4, CMP, TSH #### [facility] [address] [address] [address] Stan Aceves Anion gap [Moles/Vol] 12.1 mmol/L Normal [facility] Comment on above: Performed By: #### T 4, CMP, TSH #### [facility] [address] [place] [address] Dr. Stan Aceves AST [Catalytic activity/Vol] 14 U/L Critically low 15-37 [facility] Comment on above: Performed By: #### T 4, CMP, TSH #### [facility] [address] [place] [address] Dr. Stan Aceves Bilirubin [Mass/Vol] 0.3 mg/dL Normal 0.2-1.0 [facility] Comment on above: Performed By: #### T 4, CMP, TSH #### [facility] [address] [place] [address] Dr. Stan Aceves Calcium [Mass/Vol] 9.1 mg/dL Normal 8.5-10.1 [facility] Comment on above: Performed By: #### T 4, CMP, TSH #### [facility] [address] [address] [address] Stan Aceves Chloride [Moles/Vol] 103 mmol/L Normal 98-107 [facility] Comment on above: Performed By: #### T 4, CMP, TSH #### [facility] [address] [place] [address] Dr. Stan Aceves CO2 [Moles/Vol] 26.8 mmol/L Normal 21.0-32.0 [facility] Comment on above: Performed By: #### T 4, CMP, TSH #### [facility] [address] [address] [address] Stan Aceves Creatinine [Mass/Vol] 0.84 mg/dL Normal 0.55-1.02 [facility] Comment on above: Performed By: #### T 4, CMP, TSH #### [facility] [address] [address] [address] Stan Aceves EGFR-AF CUBAN >60 Normal >=60 [facility] Comment on above: Performed By: #### T 4, CMP, TSH #### [facility] [address] [address] [address] Stan Aceves EGFR-NON AF CUBAN >60 Normal >=60 [facility] Comment on above: Performed By: #### T 4, CMP, TSH #### [facility] [address] [address] [address] Stan Aceves Globulin (S) [Mass/Vol] 3.6 g/dL Normal [facility] Comment on above: Performed By: #### T 4, CMP, TSH #### [facility] [address] [address] [address] Stan Aceves Glucose [Mass/Vol] 84 mg/dL Normal 74-106 [facility] Comment on above: Performed By: #### T 4, CMP, TSH #### [facility] [address] [address] [address] Stan Aceves Potassium [Moles/Vol] 3.9 mmol/L Normal 3.5-5.1 [facility] Comment on above: Performed By: #### T 4, CMP, TSH #### [facility] [address] [address] [address] Stan Aceves Protein [Mass/Vol] 7.1 g/dL Normal 6.4-8.2 [facility] Comment on above: Performed By: #### T 4, CMP, TSH #### [facility] [address] [address] [address] Stan Aceves Sodium [Moles/Vol] 138 mmol/L Normal 136-145 [facility] Comment on above: Performed By: #### T 4, CMP, TSH #### [facility] [address] [place] [address] Dr. Stan Aceves Urea nitrogen [Mass/Vol] 12.0 mg/dL Normal 7.0-18.0 [facility] Comment on above: Performed By: #### T 4, CMP, TSH #### [facility] [address] [place] [address] Dr. Stan Aceves Urea nitrogen/Creatinine [Mass ratio] 14.3 mg/mg Normal [facility] Comment on above: Performed By: #### T 4, CMP, TSH #### [facility] [address] [place] [address] Dr. Stan Aceves T4on 01-05-2023 T4 [Mass/Vol] 8.70 ug/dL Normal 4.80-13.90 [facility] Comment on above: Performed By: #### T 4, CMP, TSH #### [facility] [address] [place] [address] Dr. Stan Aceves TSHon 01-05-2023 TSH 2.209 uIU/mL Normal 0.358-3.740 [facility] Comment on above: Performed By: #### T 4, CMP, TSH #### [facility] [address] [place] [address] Dr. Stan Aceves MRI BRAIN WO W [...] PATRICK PIERRE Date: 2022-04-27 10:16 Normal [facility] CREATININEon 04-08-2022 Creatinine [Mass/Vol] 0.91 mg/dL Normal 0.55-1.02 [facility] Comment on above: Performed By: #### C ONIEL #### [facility] [address] [place] [address] Dr. Stan Aceves EGFR-AF CUBAN >60 Normal >=60 [facility] Comment on above: Performed By: #### C ONIEL #### [facility] [address] [address] [address] Stan Aceves EGFR-NON AF CUBAN >60 Normal >=60 [facility] Comment on above: Performed By: #### C ONIEL #### [facility] [address] [place] [address] Dr. Stan Aceves CTA ABD/PELVIS WO W [...] PATRICK PIERRE Date: 2022-04-08 10:04 Normal [facility] Established Visit (Otolaryng ology)on 09-26-2018 Established Visit [...] Dispense: 30 Days ; #:30; Refill: 0; AIREL = N; Record; Last Updated By: Domenica Topete; 10/11/2017 1:16:16 PM Famotidine 20 MG Oral Tablet; TAKE 1 TABLET AT BEDTIME and TAKE 1 TABLET ASNEEDED during the day;Therapy: [id number] to Recorded Rx By: Zion; Dispense: 30 [...] Dispense: 30 Days ; #:30; Refill: 0; RAIEL = N; Record; Last Updated By: Mc [...] Scheduling,Retrospect desmond By ProtocolAuthorization ; Requested for:15Sep2020; Perform:[facility]; Due:[id number]; Last Updated By:Carole Lanier; 09/26/2018 3:48:32 PM;Ordered; For:Acoustic neuroma; Ordered By:Shane Wilkerson;Radiologist to Determine Optimal Study : YWhat are the patient's signs and symptoms? : s/p CPA lesion resection Signatures Electronically signed by : Shane Wilkerson MD; Sep 26 2018 4:29PM EST (Author) Normal [facility] Vital Signs Date Time Vital Sign Value Performing Clinician Facility 08-22-2025 09:03-0400 Body height 160.02 cm La Aichholz [employer] Work Phone: [facility] 08-22-2025 09:03-0400 Body mass index (BMI) [Ratio] 26.7 kg/m2 La Aichholz [employer] INSTRUCTOR-C Work Phone: [facility] 08-22-2025 09:03-0400 Body temperature 97.3 [degF] La Aichholz [employer] INSTRUCTOR-C Work Phone: [facility] 08-22-2025 09:03-0400 Body weight 68.54 kg La Aichholz [employer] INSTRUCTOR-C Work Phone: [facility] 08-22-2025 09:03-0400 Diastolic blood pressure 64 mm[Hg] La Aichholz [employer] INSTRUCTOR[employer]C Work Phone: [facility] 08-22-2025 09:03-0400 Heart rate 84 /min La Aichholz [employer] INSTRUCTOR[employer]C Work Phone: [facility] 08-22-2025 09:03-0400 Inhaled oxygen flow rate 3 L/min La Aichholz [employer] INSTRUCTOR[employer]C Work Phone: [facility] 08-22-2025 09:03-0400 Respiratory rate 20 /min La Aichholz [employer] INSTRUCTOR-C Work Phone: [facility] 08-22-2025 09:03-0400 SaO2% (BldA) [Mass fraction] 98 % La Aichholz [employer] INSTRUCTOR-C Work Phone: [facility] 08-22-2025 09:03-0400 Systolic blood pressure 98 mm[Hg] La Aichholz [employer] INSTRUCTOR-C Work Phone: [facility] 07-31-2025 11:02-0400 Body height 160.02 cm La Aichholz [employer] INSTRUCTOR-C Work Phone: [facility] 07-31-2025 11:02-0400 Body temperature 98.1 [degF] La Aichholz [employer] INSTRUCTOR-C Work Phone: [facility] 07-31-2025 11:02-0400 Diastolic blood pressure 60 mm[Hg] La Aichholz [employer] INSTRUCTOR-C Work Phone: [facility] 07-31-2025 11:02-0400 Heart rate 92 /min La Aichholz [employer] INSTRUCTOR[employer]C Work Phone: [facility] 07-31-2025 11:02-0400 Inhaled oxygen flow rate 3 L/min La Aichholz [employer] IN[employer]CTOR[employer]C Work Phone: [facility] 07-31-2025 11:02-0400 Respiratory rate 18 /min La Aichholz [employer] INSTRUCTOR[employer]C Work Phone: [facility] 07-31-2025 11:02-0400 SaO2% (BldA) [Mass fraction] 95 % La Aichholz [employer] INSTRUCTOR-C Work Phone: [facility] 07-31-2025 11:02-0400 Systolic blood pressure 98 mm[Hg] La Aichholz [employer] IN[employer]CTOR[employer]C Work Phone: [facility] 06-26-2025 10:26-0400 Body temperature 98.4 [degF] La Aichholz [employer] WE[employer] INSTRUCTOR Work Phone: [facility] 06-26-2025 10:26-0400 Diastolic blood pressure 84 mm[Hg] La Aichholz [employer] WE[employer] INSTRUCTOR Work Phone: [facility] 06-26-2025 10:26-0400 Heart rate 85 /min La Aichholz [employer] WE[employer] INSTRUCTOR Work Phone: [facility] 06-26-2025 10:26-0400 Respiratory rate 20 /min La Aichholz [employer] WE[employer]NESS INSTRUCTOR Work Phone: [facility] 06-26-2025 10:26-0400 SaO2% (BldA) [Mass fraction] 96 % La Aichholz [employer] WELL[employer] INSTRUCTOR Work Phone: [facility] 06-26-2025 10:26-0400 Systolic blood pressure 126 mm[Hg] La Aichholz [employer] WE[employer] INSTRUCTOR Work Phone: [facility] 02-06-2025 10:08-0400 Body mass index (BMI) [Ratio] 25.05 kg/m2 La Aichholz [employer] WE[employer] INSTRUCTOR Work Phone: [facility] 02-06-2025 10:08-0400 Body temperature 98.1 [degF] La Aichholz [employer] WE[employer] INSTRUCTOR Work Phone: [facility] 02-06-2025 10:08-0400 Body weight 64.14 kg La Aichholz [employer] WELLNESS INSTRUCTOR Work Phone: [facility] 02-06-2025 10:08-0400 Diastolic blood pressure 72 mm[Hg] La Aichholz [employer] WE[employer] INSTRUCTOR Work Phone: [facility] 02-06-2025 10:08-0400 Heart rate 80 /min La Aichholz [employer] WE[employer] INSTRUCTOR Work Phone: [facility] 02-06-2025 10:08-0400 Respiratory rate 20 /min La Aichholz [employer] WE[employer] INSTRUCTOR Work Phone: [facility] 02-06-2025 10:08-0400 SaO2% (BldA) [Mass fraction] 97 % La Aichholz [employer] WELL[employer] INSTRUCTOR Work Phone: [facility] Comment on above: with 3L of 02 on 02-06-2025 10:08-0400 Systolic blood pressure 124 mm[Hg] La Aichholz [employer] WELLNESS INSTRUCTOR Work Phone: [facility] 01-23-2025 11:44-0400 Body height 160 cm La Aichholz [employer] WELLNESS INSTRUCTOR Work Phone: [facility] 01-23-2025 11:44-0400 Body mass index (BMI) [Ratio] 25.15 kg/m2 La Aichholz [employer] WELLNESS INSTRUCTOR Work Phone: [facility] 01-23-2025 11:44-0400 Body temperature 97.81 [degF] La Pack [employer] AND WELLNESS INSTRUCTOR Work Phone: [facility] 01-23-2025 11:44-0400 Body weight 64.41 kg La Pack [employer] WE[employer]NESS INSTRUCTOR Work Phone: [facility] 01-23-2025 11:44-0400 Diastolic blood pressure 56 mm[Hg] aL Pack [employer] AND WELLNESS INSTRUCTOR Work Phone: [facility] 01-23-2025 11:44-0400 Heart rate 98 /min La Pack [employer] WE[employer] INSTRUCTOR Work Phone: [facility] 01-23-2025 11:44-0400 Respiratory rate 24 /min La Pack [employer] WE[employer] INSTRUCTOR Work Phone: [facility] 01-23-2025 11:44-0400 SaO2% (BldA) [Mass fraction] 97 % La Pack [employer] WE[employer] INSTRUCTOR Work Phone: [facility] 01-23-2025 11:44-0400 Systolic blood pressure 110 mm[Hg] La Pack [employer] WELLNESS INSTRUCTOR Work Phone: [facility] 01-14-2025 09:30-0500 Body height 160 cm Ian Soares MD Work Phone: [facility] 01-14-2025 09:30-0500 Body mass index (BMI) [Ratio] 25.15 kg/m2 Ian Soares MD Work Phone: [facility] 01-14-2025 09:30-0500 Body temperature 96.6 [degF] Ian Soares MD Work Phone: [facility] 01-14-2025 09:30-0500 Body weight 64.41 kg Ian Soares MD Work Phone: [facility] 01-14-2025 09:30-0500 Diastolic blood pressure 66 mm[Hg] Ian Soares MD Work Phone: [facility] 01-14-2025 09:30-0500 Heart rate 85 /min Ian Soares MD Work Phone: [facility] 01-14-2025 09:30-0500 Respiratory rate 22 /min Ian Soares MD Work Phone: [facility] 01-14-2025 09:30-0500 SaO2% (BldA) [Mass fraction] 97 % Ian Soares MD Work Phone: [facility] 01-14-2025 09:30-0500 Systolic blood pressure 130 mm[Hg] Ian Soares MD Work Phone: [facility] 01-04-2025 09:09-0500 Body height 160.02 cm Daniel Cardoso [employer] WELLNESS INSTRUCTOR-C Work Phone: [facility] 01-04-2025 09:09-0500 Body mass index (BMI) [Ratio] 24.7 kg/m2 Daniel Cardoso [employer] WELLNESS INSTRUCTOR-C Work Phone: [facility] 01-04-2025 09:09-0500 Body weight 63.5 kg Daniel Cardoso [employer] WELLNESS INSTRUCTOR-C Work Phone: [facility] 01-04-2025 09:09-0500 Diastolic blood pressure 56 mm[Hg] Daniel Cardoso [employer] WELLNESS INSTRUCTOR-C Work Phone: [facility] 01-04-2025 09:09-0500 Heart rate 82 /min Daniel Cardoso [employer] WELLNESS INSTRUCTOR-C Work Phone: [facility] 01-04-2025 09:09-0500 Inhaled oxygen flow rate 3 L/min Daniel Cardoso [employer] WELLNESS INSTRUCTOR-C Work Phone: [facility] 01-04-2025 09:09-0500 Respiratory rate 18 /min Daniel Cardoso [employer] WELLNESS INSTRUCTOR-C Work Phone: [facility] 01-04-2025 09:09-0500 SaO2% (BldA) [Mass fraction] 97 % Daniel Mccormicktrick [employer] WE[employer]NESS INSTRUCTOR-C Work Phone: [facility] 01-04-2025 09:09-0500 Systolic blood pressure 104 mm[Hg] Daniel Castorenapatrick [employer] WELLNESS INSTRUCTOR-C Work Phone: [facility] 01-01-2025 13:20-0500 Body temperature 98.1 [degF] Stephen Furlong DO [facility] 01-01-2025 13:20-0500 Diastolic blood pressure 84 mm[Hg] Stephen Furlong DO [facility] 01-01-2025 13:20-0500 Heart rate 73 /min Stephen Furlong DO Work Phone: [facility] [employer] [facility] 01-01-2025 13:20-0500 Respiratory rate 16 /min [facility] 01-01-2025 13:20-0500 SaO2% (BldA) [Mass fraction] 96 % Stephen Furlong DO [facility] 01-01-2025 13:20-0500 Systolic blood pressure 129 mm[Hg] Stephen Furlong DO [facility] 12-28-2024 14:56-0500 Body temperature 97.2 [degF] Stephen Furlong DO [facility] 12-28-2024 14:56-0500 Diastolic blood pressure 79 mm[Hg] Stephen Furlong DO [facility] 12-28-2024 14:56-0500 Heart rate 79 /min Stephen Furlong DO [facility]: [facility] 12-28-2024 14:56-0500 Respiratory rate 18 /min Stephen Furlong DO Work Phone: [facility] [employer] 12-28-2024 14:56-0500 SaO2% (BldA) [Mass fraction] 96 % Stephen Furlong DO Work Phone: [facility] [employer] 12-28-2024 14:56-0500 Systolic blood pressure 150 mm[Hg] Stephen Furlong DO Work Phone: [facility] [employer] 12-25-2024 17:23-0500 Body mass index (BMI) [Ratio] 24.03 kg/m2 Stephen Furlong DO Work Phone: [facility] [employer] 12-25-2024 17:23-0500 Body temperature 97.9 [degF] Stephen Furlong DO Work Phone: [facility] [employer] 12-25-2024 17:23-0500 Body weight 63.5 kg Stephen Furlong DO Work Phone: [facility] [employer] 12-25-2024 17:23-0500 Diastolic blood pressure 75 mm[Hg] Stephen Furlong DO Work Phone: [facility] [employer] 12-25-2024 17:23-0500 Heart rate 94 /min Stephen Furlong DO Work Phone: [facility] [employer] 12-25-2024 17:23-0500 Respiratory rate 18 /min Stephen Furlong DO Work Phone: [facility] 12-25-2024 17:23-0500 SaO2% (BldA) [Mass fraction] 93 % Stephen Furlong DO Work Phone: [facility] [employer] 12-25-2024 17:23-0500 Systolic blood pressure 124 mm[Hg] Stephen Furlong DO Work Phone: [facility] 12-18-2024 19:16-0500 Body height 162.6 cm Stephen Furlong DO Work Phone: [facility] 12-18-2024 19:16-0500 Body temperature 97.81 [degF] Stephen Furlong DO Work Phone: [facility] 12-18-2024 19:16-0500 Diastolic blood pressure 65 mm[Hg] Stephen Furlong DO Work Phone: [facility] 12-18-2024 19:16-0500 Heart rate 82 /min Stephen Furlong DO Work Phone: [facility] 12-18-2024 19:16-0500 Respiratory rate 18 /min Stephen Furlong DO Work Phone: [facility] 12-18-2024 19:16-0500 SaO2% (BldA) [Mass fraction] 92 % Stephen Furlong DO Work Phone: [facility] 12-18-2024 19:16-0500 Systolic blood pressure 112 mm[Hg] Stephen Furlong DO Work Phone: [facility] 12-14-2024 14:05-0500 Heart rate 91 /min Daniel Cardoso HEALTH AND WELLNESS INSTRUCTOR-C Work Phone: [facility] 12-14-2024 14:05-0500 Respiratory rate 18 /min Daniel Cardoso HEALTH AND WELLNESS INSTRUCTOR-C Work Phone: [facility] 12-14-2024 09:25-0500 Body temperature 97.5 [degF] Daniel Cardoso HEALTH AND WELLNESS INSTRUCTOR-C Work Phone: [facility] 12-14-2024 09:25-0500 Diastolic blood pressure 57 mm[Hg] Daniel Cardoso HEALTH AND WELLNESS INSTRUCTOR-C Work Phone: [facility] 12-14-2024 09:25-0500 Inhaled oxygen flow rate 4 L/min Daniel Cardoso HEALTH AND WELLNESS INSTRUCTOR-C Work Phone: [facility] 12-14-2024 09:25-0500 SaO2% (BldA) [Mass fraction] 90 % Daniel Cardoso HEALTH AND WELLNESS INSTRUCTOR-C Work Phone: [facility] 12-14-2024 09:25-0500 Systolic blood pressure 104 mm[Hg] Daniel Cardoso HEALTH AND WELLNESS INSTRUCTOR-C Work Phone: [facility] 12-14-2024 06:00-0500 Body weight 65.3 kg Daniel Cardoso HEALTH AND WELLNESS INSTRUCTOR-C Work Phone: [facility] 12-13-2024 17:05-0500 Body height 162.56 cm Daniel Cardoso HEALTH AND WELLNESS INSTRUCTOR-C Work Phone: [facility] 12-11-2024 12:00-0500 Inhaled oxygen concentration 40 % Daniel Cardoso HEALTH AND WELLNESS INSTRUCTOR-C Work Phone: [facility] 09-20-2024 09:43-0500 Body height 160 cm Daniel Cardoso HEALTH AND WELLNESS INSTRUCTOR Work Phone: [facility] 09-20-2024 09:43-0500 Body mass index (BMI) [Ratio] 24.13 kg/m2 Danile Cardoso HEALTH AND WELLNESS INSTRUCTOR Work Phone: [facility] 09-20-2024 09:43-0500 Body temperature 96.69 [degF] Daniel Cardoso HEALTH AND WELLNESS INSTRUCTOR Work Phone: [facility] 09-20-2024 09:43-0500 Body weight 61.78 kg Daniel Cardoso HEALTH AND WELLNESS INSTRUCTOR Work Phone: [facility] 09-20-2024 09:43-0500 Diastolic blood pressure 74 mm[Hg] Daniel Cardoso HEALTH AND WELLNESS INSTRUCTOR Work Phone: [facility] 09-20-2024 09:43-0500 Heart rate 85 /min Daniel Cardoso HEALTH AND WELLNESS INSTRUCTOR Work Phone: [facility] 09-20-2024 09:43-0500 Respiratory rate 18 /min Daniel Mccormicktrick HEALTH AND WELLNESS INSTRUCTOR Work Phone: [facility] 09-20-2024 09:43-0500 SaO2% (BldA) [Mass fraction] 94 % Daniel Mccormicktrick HEALTH AND WELLNESS INSTRUCTOR Work Phone: [facility] 09-20-2024 09:43-0500 Systolic blood pressure 128 mm[Hg] Daniel Mccormicktrick HEALTH AND WELLNESS INSTRUCTOR Work Phone: [facility] Encounters Encounter Date Encounter Type Care Provider Facility Start: 08-22-2025 End: 08-22-2025 ambulatory La Pack HEALTH AND WELLNESS INSTRUCTOR-C Work Phone: [facility] Work Phone: Start: 08-22-2025 End: 08-22-2025 Patient encounter procedure La Pack HEALTH AND WELLNESS INSTRUCTOR-C -[facility] Work Phone: Start: 08-12-2025 Non-patient / Non-visit La cruz HEALTH AND WELLNESS INSTRUCTOR-C -[facility] Work Phone: Start: 07-31-2025 End: 07-31-2025 ambulatory La Pack HEALTH AND WELLNESS INSTRUCTOR-C Work Phone: [facility] Work Phone: Start: 07-31-2025 End: 07-31-2025 Patient encounter procedure La Pack HEALTH AND WELLNESS INSTRUCTOR-C -[facility] Work Phone: Start: 07-18-2025 Patient encounter procedure La Pack HEALTH AND WELLNESS INSTRUCTOR-C Work Phone: [facility] Start: 07-10-2025 End: 07-10-2025 Clinisync Result Encounter La Pack HEALTH AND WELLNESS INSTRUCTOR Work Phone: [facility] External Department Unsolicited Start: 07-10-2025 End: 07-10-2025 Clinisync Result Encounter La Pack HEALTH AND WELLNESS INSTRUCTOR Work Phone: [facility] External Department Unsolicited Start: 06-26-2025 End: 06-26-2025 Bamboo flowsheet La Ramone HEALTH AND WELLNESS INSTRUCTOR Work Phone: [facility] Start: 06-26-2025 End: 06-26-2025 Bamboo flowsheet La Pack HEALTH AND WELLNESS INSTRUCTOR Work Phone: [facility] Start: 06-26-2025 End: 06-26-2025 Office outpatient visit 25 minutes La Pack HEALTH AND WELLNESS INSTRUCTOR Work Phone: [facility] Comment on above: Edema of both lower legs (Primary Dx); Primary hypertension ; Chronic obstructive pulmonary disease, unspecified COPD type (HCC); Type 2 diabetes mellitus without complication, without long-term current use of insulin (HCC); Cigarette nicotine dependence without complication; Depression, unspecified ; Generalized anxiety disorder ; Cellulitis of left lower extremity Start: 06-26-2025 End: 06-26-2025 ambulatory LA TONYHOLZ Not Available Start: 06-13-2025 End: 06-13-2025 Orders Only La Pack HEALTH AND WELLNESS INSTRUCTOR Work Phone: [facility] Comment on above: Iron deficiency (Daisy columba Dx); Abnormal CBC Start: 06-07-2025 End: 06-09-2025 Refill aIn Soares MD Work Phone: [facility] Comment on above: Chronic obstructive pulmonary disease, unspecified COPD type (HCC) Start: 06-05-2025 End: 06-05-2025 Refill La Ramone HEALTH AND WELLNESS INSTRUCTOR Work Phone: [facility] Comment on above: Primary hypertension (Primary Dx); Hyperlipidemia, unspecified ; Vitamin D deficiency; Type 2 diabetes mellitus without complications (HCC); Gastro-esophageal reflux disease without esophagitis; Depression, unspecified Start: 05-06-2025 End: 05-06-2025 Refill La Michellez HEALTH AND WELLNESS INSTRUCTOR Work Phone: [facility] Comment on above: Asthma with COPD (ch ronic obstructive pulmonary disease) ([facility]) Start: 04-16-2025 Patient encounter procedure La Pack HEALTH AND WELLNESS INSTRUCTOR Work Phone: [facility] Start: 04-01-2025 End: 04-01-2025 Refill La Ramone HEALTH AND WELLNESS INSTRUCTOR Work Phone: [facility] Comment on above: Depression, unspecif ied ([facility]) Osteoarthritis, unsp ecified osteoarthritis type, unspecified site (Primary Dx) Start: 03-25-2025 End: 03-25-2025 Clinisync Result Encounter La Ramone HEALTH AND WELLNESS INSTRUCTOR Work Phone: [facility] Unsolicited Start: 03-25-2025 End: 03-25-2025 Clinisync Result Encounter La Ramone HEALTH AND WELLNESS INSTRUCTOR Work Phone: [facility] Unsolicited Start: 03-25-2025 End: 03-25-2025 Orders Only La Dalehholz HEALTH AND WELLNESS INSTRUCTOR Work Phone: [facility] Comment on above: Acquired hypothyroid ism (CMS/[facility]) (Primary Dx) Start: 02-25-2025 End: 02-25-2025 Refill Ian Soares MD Work Phone: [facility] Comment on above: Asthma with COPD (ch ronic obstructive pulmonary disease) ([facility]); Chronic obstructive pulmonary disease, unspecified COPD type ([facility]) Start: 02-21-2025 End: 02-21-2025 Clinisync Result Encounter Generic External Data Provider [facility] Unsolicited Start: 02-21-2025 End: 02-21-2025 Clinisync Result Encounter Generic External Data Provider [facility] Unsolicited Start: 02-20-2025 End: 02-20-2025 Refill La Ramone HEALTH AND WELLNESS INSTRUCTOR Work Phone: [facility] Comment on above: 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 Start: 02-19-2025 End: 02-19-2025 Orders Only La Aichholz HEALTH AND WELLNESS INSTRUCTOR Work Phone: [facility] Comment on above: Elevated TSH Start: 02-18-2025 End: 02-18-2025 Clinisync Result Encounter Laevan Crossrashaad HEALTH AND WELLNESS INSTRUCTOR Work Phone: [facility] External Department Unsolicited Start: 02-18-2025 End: 02-18-2025 Clinisync Result Encounter Laevan Crossrashaad HEALTH AND WELLNESS INSTRUCTOR Work Phone: [facility] External Department Unsolicited Start: 02-06-2025 End: 02-06-2025 Office outpatient visit 25 minutes La Dalecarmenrashaad HEALTH AND WELLNESS INSTRUCTOR Work Phone: [facility] Comment on above: Type 2 diabetes shanthi itus without complication, without long- term current use of insulin ([facility]/HCC) (Primary Dx); Chronic obstructive pulmonary disease, unspecified COPD type (CMS/HCC); Primary hypertension ([facility]); Vitamin D deficiency; Iron deficiency anemia due to chronic blood loss; Cigarette nicotine dependence without complication; Recurrent major depressive disorder, in full remission (CMS/HCC); Generalized anxiety disorder (CMS/HCC); Screening mammogram, encounter for; Other hyperlipidemia (CMS/[facility]); Acute hypoxic respiratory failure (CMS/HCC) Start: 02-06-2025 End: 02-06-2025 ambulatory LA AICHHOLZ Not Available Start: 01-23-2025 End: 01-23-2025 Office outpatient visit 25 minutes La Ramone HEALTH AND WELLNESS INSTRUCTOR Work Phone: [facility] Comment on above: Scalp laceration, se quela (Primary Dx); Cigarette nicotine dependence without complication; COPD exacerbation (CMS/HCC) Start: 01-23-2025 End: 01-23-2025 ambulatory LA AICHHOLZ Not Available Start: 01-14-2025 End: 01-14-2025 Wilmerboyuliet flowspalomo Soares MD Work Phone: [facility] Start: 01-14-2025 End: 01-14-2025 Roberto Carlos flowspalomo Soares MD Work Phone: [facility] Start: 01-14-2025 End: 01-14-2025 Transitional care manage srvc 14 day discharge Ian Soares MD Work Phone: [facility] Comment on above: Influenza A (Primary [...] Start: 01-04-2025 End: 01-04-2025 ambulatory Daniel Cardoso HEALTH AND WELLNESS INSTRUCTOR-C Work Phone: [facility] Work Phone: Start: 01-04-2025 End: 01-04-2025 Patient encounter procedure Daniel Cardoso HEALTH AND WELLNESS INSTRUCTOR-C [facility] Phone[facility] Work Phone: Start: 01-01-2025 End: 01-01-2025 [...] 01-02-2025 ambulatory Stephen Macias DO Work Phone: [facility] Comment on above: Chronic obstructive pulmonary disease, unspecified COPD type ([facility]-HCC) (Primary Dx); Influenza A; Other abnormalities of gait and mobility; Anxiety; Cigarette smoker Start: 12-18-2024 End: 12-24-2024 ambulatory Stephen Macias DO Work Phone: [facility] Comment on above: Acute hypoxic respir atory failure ([facility]-HCC) (Primary Dx); Chronic obstructive pulmonary disease, unspecified COPD type ([facility]-HCC); Influenza A; Aspiration pneumonia, unspecified aspiration pneumonia type, unspecified laterality, unspecified part of lung ([facility]-HCC); Depression, unspecified depression type; Cigarette smoker; Type 2 diabetes mellitus without complication, without long-term current use of insulin ([facility]); Anxiety Start: 12-13-2024 Non-patient / Non-visit Margo Mccormicktrick HEALTH AND WELLNESS INSTRUCTOR-C Work Phone: [facility] Work Phone: Start: 12-10-2024 Non-patient / Non-visit Margo Mccormicktrick HEALTH AND WELLNESS INSTRUCTOR-C Work Phone: [facility] Work Phone: Start: 12-10-2024 Non-patient / Non-visit Margo Castorenapatrick HEALTH AND WELLNESS INSTRUCTOR-C Work Phone: [facility] Work Phone: Start: 12-10-2024 Non-patient / Non-visit Margo Mccormicktrick HEALTH AND WELLNESS INSTRUCTOR-C Work Phone: [facility] Work Phone: Start: 12-09-2024 End: 12-14-2024 Evaluation and management of inpatient Daniel Staffordk HEALTH AND WELLNESS INSTRUCTOR-C Work Phone: [facility] [place] Work Phone: Start: 12-09-2024 End: 12-09-2024 ambulatory UNKNOWN PROVIDER Facility:[facility] Start: 12-09-2024 End: 12-11-2024 Clinisync Result [...] with COPD (ch ronic obstructive pulmonary disease) ([facility]) Start: 11-12-2024 End: 11-14-2024 Refill Daniel Cardoso HEALTH AND WELLNESS INSTRUCTOR Work Phone: [facility] Comment on above: 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 Start: 10-22-2024 End: 10-22-2024 Refill Daniel Cardoso HEALTH AND WELLNESS INSTRUCTOR Work Phone: [facility] Comment on above: Gastro-esophageal re flux disease without esophagitis Start: 10-22-2024 End: 10-22-2024 Refill Daniel Cardoso HEALTH AND WELLNESS INSTRUCTOR Work Phone: [facility] Comment on above: Depression, unspecif ied ([facility]) Start: 09-20-2024 End: 09-20-2024 Bamboo flowsheet Daniel Cardoso HEALTH AND WELLNESS INSTRUCTOR Work Phone: [facility] Start: 09-20-2024 End: 09-20-2024 Bamboo flowsheet Daniel Cardoso HEALTH AND WELLNESS INSTRUCTOR Work Phone: [facility] Start: 09-20-2024 End: 09-20-2024 Office outpatient visit 15 minutes Daniel Cardoso HEALTH AND WELLNESS INSTRUCTOR Work Phone: [facility] Comment on above: Primary hypertension ([facility]) (Primary Dx); Type 2 diabetes mellitus without complication, without long-term current use of insulin ([facility]); Other hyperlipidemia ([facility]); Asthma with COPD (chronic obstructive pulmonary disease) ([facility]); Non-recurrent acute serous otitis media of left ear Start: 09-20-2024 End: 09-20-2024 ambulatory DANIEL MCCORMICKTRICK Not Available Start: 09-11-2024 End: 09-11-2024 Refill Daniel Mccormicktrick HEALTH AND WELLNESS INSTRUCTOR Work Phone: [facility] Comment on above: Type 2 diabetes shanthi itus without complications ([facility]) Hyperlipidemia, unsp ecified ([facility]) Other bursitis of el bow, left elbow Start: 09-03-2024 End: 09-03-2024 Refill Ailyn Eng [facility] Comment on above: Asthma with COPD (ch ronic obstructive pulmonary disease) ([facility]) Start: 08-27-2024 End: 08-27-2024 Refill Daniel Mccormicktrick HEALTH AND WELLNESS INSTRUCTOR Work Phone: [facility] Comment on above: Asthma with COPD (ch ronic obstructive pulmonary disease) ([facility]) Start: 08-01-2024 End: 08-02-2024 Refill Arturo SHAFER [facility] Comment on above: Hyperlipidemia, unsp ecified ([facility]); Other bursitis of elbow, left elbow; Depression, unspecified ([facility]); Type 2 diabetes mellitus without complications ([facility]) Start: 07-25-2024 End: 07-26-2024 Refill Arturo Chanel MA [facility] Comment on above: Other bursitis of el bow, left elbow Start: 07-23-2024 End: 07-23-2024 Refill Daniel Silvazpatrick HEALTH AND WELLNESS INSTRUCTOR Work Phone: [facility] Comment on above: Type 2 diabetes shanthi itus without complications ([facility]); Hyperlipidemia, unspecified ([facility]) Start: 07-07-2024 End: 07-07-2024 Chart abstracting Daniel Walker HEALTH AND WELLNESS INSTRUCTOR Work Phone: [facility] Comment on above: 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 (Primary Dx) Start: 12-15-2023 End: 12-16-2023 ambulatory Zamzam Wheeler Facility:[facility] Start: 12-15-2023 End: 12-15-2023 Patient encounter procedure Zamzam Wheeler [facility] Start: 11-30-2023 End: 12-01-2023 ambulatory Zamzam Wheeler Facility:[facility] Start: 10-28-2023 End: 11-10-2023 Pre-admission assessment Zamzam Wheeler [facility] Start: 01-05-2023 End: 01-06-[address] GIANNA ISABEL Facility:[facility] Start: 04-26-2022 End: 04-27-[address] GIANNA ISABEL Facility:[facility] Start: 04-08-2022 End: 04-09-[address] GIANNA ISABEL Facility:[facility] Procedures Date Procedure Procedure Detail Performing Clinician Start: 07-10-2025 ALL CBC WITH AUTO DIFF La Ramone HEALTH AND WELLNESS INSTRUCTOR Work Phone: Start: 03-25-2025 ALL THYROID STIM HORMONE La Pack HEALTH AND WELLNESS INSTRUCTOR Work Phone: Start: 03-25-2025 ALL THYROXINE (T4) FREE La Pack HEALTH AND WELLNESS INSTRUCTOR Work Phone: Start: 02-21-2025 NM ORLY PERF SPECT REST STR Generic External Data Provider Start: 02-18-2025 MM TOMOSYNTHESIS SCR EENING BI La Pack HEALTH AND WELLNESS INSTRUCTOR Work Phone: Start: 02-18-2025 ALL CBC WITH AUTO DIFF La Michellez HEALTH AND WELLNESS INSTRUCTOR Work Phone: Start: 02-18-2025 Mammography La Courtney cruz HEALTH AND WELLNESS INSTRUCTOR Work Phone: Start: 12-11-2024 Plain chest X-ray Taylor any Cardoso HEALTH AND WELLNESS INSTRUCTOR-C Work Phone: Start: 12-10-2024 Plain chest X-ray Taylor any Cardoso HEALTH AND WELLNESS INSTRUCTOR-C Work Phone: Start: 12-09-2024 Plain X-ray abdomen Katy ttany Cardoso HEALTH AND WELLNESS INSTRUCTOR-C Work Phone: Start: 12-09-2024 Plain chest X-ray Taylor any Cardoso HEALTH AND WELLNESS INSTRUCTOR-C Work Phone: Start: 12-09-2024 BLOOD CULTURE 2 Generic External Data Provider Start: 12-09-2024 Aerobic microbial culture Daniel Cardoso HEALTH AND WELLNESS INSTRUCTOR-C Work Phone: Start: 12-09-2024 Bacteria identified in Blood by Culture Daniel Cardoso HEALTH AND WELLNESS INSTRUCTOR-C Work Phone: Start: 12-09-2024 Gram stain microscopy B bernardy Cardoso HEALTH AND WELLNESS INSTRUCTOR-C Work Phone: Start: 09-20-2024 Hemoglobin glycosyla brendan a1c Daniel Cardoso HEALTH AND WELLNESS INSTRUCTOR Work Phone: Start: 01-16-2024 Mammography Daniel F itzpatrick HEALTH AND WELLNESS INSTRUCTOR Work Phone: Plan of Treatment Date Care Activity Detail Author Start: 01-30-2027 Glaucoma screening Diabetes: R etinopathy Screening [facility] Start: 05-08-2026 Medicare Annual Well ness (AWV) Medicare Annual Wellness (AWV) [facility] Start: 02-18-2026 Screening for malign ant neoplasm of breast Mammogram [facility] Start: 02-18-2026 Urine screening for protein Diabetes: Urine Protein Screening [facility] Start: 11-14-2025 Screening for malign ant neoplasm of colon [facility] Start: 08-22-2025 Patient referral [facility] Work Phone: Start: 08-20-2025 Hemoglobin A1c measurement Diabetes: Hemoglobin A1C [facility] Start: 07-31-2025 End: 07-31-2025 Patient encounter procedure 07/31/2025 11:00 AM EDT Office Visit [facility] [address] [place] [id number] La Pack, GREG [address] [place] [id number] [facility] Start: 07-15-[address] [facility] Start: 06-26-2025 End: 06-26-2026 Basic metabolic 1998 panel - Serum or Plasma Basic metabolic panel Lab Routine Primary hypertension Type 2 diabetes mellitus without complication, without long-term current use of insulin (HCC) Edema of both lower legs Expected: 06/26/2025 (Approximate), Expires: 06/26/2026 [facility] Work Phone: Comment on above: Expected: 06/26/2025 (Approximate), Expires: 06/26/2026 Start: 06-26-2025 End: 06-26-2025 Patient encounter procedure [facility] Comment on above: Primary hypertension (Primary Dx); Chronic obstructive pulmonary disease, unspecified COPD type (HCC); Type 2 diabetes mellitus without complication, without long-term current use of insulin (HCC); Cigarette nicotine dependence without complication Start: 05-13-2025 Influenza vaccination Influenza Vacc ine (#1) [facility] Comment on above: Postponed from 07/15 (Patient Refused) Start: 05-07-2025 End: 05-07-2025 Patient encounter procedure 05/07/2025 10:00 AM EDT Office Visit [facility] [address] [place] [id number] La Pack, GREG [address] [place] [phone] [facility] Start: 04-16-2025 End: 04-16-2025 Patient encounter procedure [facility] Start: 03-25-2025 End: 03-25-2026 Thyrotropin [Units/volume] in Serum or Plasma TSH Lab Routine Acquired hypothyroidism (CMS/HCC) Expected: 03/25/2025 (Approximate), Expires: 03/25/2026 [facility] Work Phone: Comment on above: Expected: 03/25/2025 (Approximate), Expires: 03/25/2026 Start: 03-25-2025 End: 03-25-2026 Thyroxine (T4) free [Mass/volume] in Serum or Plasma T4, free Lab Routine Acquired hypothyroidism (CMS/HCC) Expected: 03/25/2025 (Approximate), Expires: 03/25/2026 [facility] Comment on above: Expected: 03/25/2025 (Approximate), Expires: 03/25/2026 Start: 03-22-2025 End: 02-20-2026 CBC W Auto Differential panel - Blood CBC and differential Lab Routine Iron deficiency anemia due to chronic blood loss Expected: 03/22/2025 (Approximate), Expires: 02/20/2026 [facility] Comment on above: Expected: 03/22/2025 (Approximate), Expires: 02/20/2026 Start: 03-22-2025 End: 02-20-2026 Iron and Iron binding capacity panel - Serum or Plasma Iron level Lab Routine Iron deficiency anemia due to chronic blood loss Expected: 03/22/2025 (Approximate), Expires: 02/20/2026 [facility] Work Phone: Comment on above: Expected: 03/22/2025 (Approximate), Expires: 02/20/2026 Start: 03-21-2025 End: 02-19-2026 Thyrotropin [Units/volume] in Serum or Plasma TSH Lab Routine Elevated TSH Expected: 03/21/2025 (Approximate), Expires: 02/19/2026 [facility] Work Phone: Comment on above: Expected: 03/21/2025 (Approximate), Expires: 02/19/2026 Start: 03-21-2025 End: 02-19-2026 Thyroxine (T4) free [Mass/volume] in Serum or Plasma T4, free Lab Routine Elevated TSH Expected: 03/21/2025 (Approximate), Expires: 02/19/2026 [facility] Comment on above: Expected: 03/21/2025 (Approximate), Expires: 02/19/2026 Start: 03-20-2025 Hemoglobin A1c measurement Diabetes: Hemoglobin A1C [facility] Start: 03-14-2025 Glaucoma screening Diabetes: R etinopathy Screening [facility] Start: 03-08-2025 Medicare Annual Well ness (AWV) Medicare Annual Wellness (AWV) [facility] Start: 02-06-2025 End: 02-06-2026 25-hydroxyvitamin D3 [Mass/volume] in Serum or Plasma Vitamin D 25 hydroxy Lab Routine Vitamin D deficiency Expected: 02/06/2025 (Approximate), Expires: 02/06/2026 [facility] Comment on above: Expected: 02/06/2025 (Approximate), Expires: 02/06/2026 Start: 02-06-2025 End: 02-06-2026 CBC W Auto Differential panel - Blood CBC and differential Lab Routine Iron deficiency anemia due to chronic blood loss Expected: 02/06/2025 (Approximate), Expires: 02/06/2026 [facility] Comment on above: Expected: 02/06/2025 (Approximate), Expires: 02/06/2026 Start: 02-06-2025 End: 02-06-2026 Comprehensive metabolic 2000 panel - Serum or Plasma Comprehensive metabolic panel Lab Routine Primary hypertension (CMS/HCC) Type 2 diabetes mellitus without complication, without long-term current use of insulin (CMS/HCC) Expected: 02/06/2025 (Approximate), Expires: 02/06/2026 [facility] Comment on above: Expected: 02/06/2025 (Approximate), Expires: 02/06/2026 Start: 02-06-2025 End: 02-06-2026 Ferritin [Mass/volume] in Serum or Plasma Ferritin Lab Routine Iron deficiency anemia due to chronic blood loss Expected: 02/06/2025 (Approximate), Expires: 02/06/2026 [facility] Comment on above: Expected: 02/06/2025 (Approximate), Expires: 02/06/2026 Start: 02-06-2025 End: 02-06-2026 Hemoglobin A1c/Hemoglobin.total in Blood Hemoglobin A1c Lab Routine Type 2 diabetes mellitus without complication, without long-term current use of insulin ([facility]) Expected: 02/06/2025 (Approximate), Expires: 02/06/2026 [facility] Comment on above: Expected: 02/06/2025 (Approximate), Expires: 02/06/2026 Start: 02-06-2025 End: 02-06-2026 Iron + transferrin + TIBC Iron + transferrin + TIBC Lab Routine Iron deficiency anemia due to chronic blood loss Expected: 02/06/2025 (Approximate), Expires: 02/06/2026 [facility] Comment on above: Expected: 02/06/2025 (Approximate), Expires: 02/06/2026 Start: 02-06-2025 End: 02-06-2026 Lipid 1996 panel - Serum or Plasma Lipid panel Lab Routine Other hyperlipidemia ([facility]) Expected: 02/06/2025 (Approximate), Expires: 02/06/2026 [facility] Comment on above: Expected: 02/06/2025 (Approximate), Expires: 02/06/2026 Start: 02-06-2025 End: 04-08-2026 MG Breast - bilateral Screening Bilateral screening mammogram Imaging Routine Screening mammogram, encounter for Expected: 02/06/2025 (Approximate), Expires: 04/08/2026 [facility] Work Phone: Comment on above: Expected: 02/06/2025 (Approximate), Expires: 04/08/2026 Start: 02-06-2025 End: 02-06-2026 Microalbumin/Creatinine panel in random Urine Microalbumin / creatinine, urine ratio Lab Routine Primary hypertension ([facility]) Type 2 diabetes mellitus without complication, without long-term current use of insulin ([facility]) Expected: 02/06/2025 (Approximate), Expires: 02/06/2026 [facility] Comment on above: Expected: 02/06/2025 (Approximate), Expires: 02/06/2026 Start: 02-06-2025 End: 02-06-2026 Thyrotropin [Units/volume] in Serum or Plasma TSH Lab Routine Generalized anxiety disorder ([facility]) Expected: 02/06/2025 (Approximate), Expires: 02/06/2026 [facility] Comment on above: Expected: 02/06/2025 (Approximate), Expires: 02/06/2026 Start: 02-06-2025 End: 02-06-2026 Urinalysis complete panel - Urine Urinalysis with reflex microscopic (clean catch) Lab Routine Primary hypertension (CMS/HCC) Type 2 diabetes mellitus without complication, without long-term current use of insulin (CMS/HCC) Expected: 02/06/2025 (Approximate), Expires: 02/06/2026 [facility] Comment on above: Expected: 02/06/2025 (Approximate), Expires: 02/06/2026 Start: 02-06-2025 End: 02-06-2025 Patient encounter procedure 02/06/2025 10:00 AM EDT Office Visit [facility] [address] [place] [phone] La Pack NP [address] [place] [phone] [facility] Start: 01-31-2025 End: 01-31-2025 Patient encounter procedure 01/31/2025 11:00 AM EDT Office Visit TIA MIRANDA [address] [place] [address] Tashia Polk PA [address] [place] [address] [facility] Start: 01-15-2025 Screening for malign ant neoplasm of breast Mammogram [facility] Start: 01-14-2025 End: 01-14-2025 Patient encounter procedure 01/14/2025 9:30 AM EST Office Visit [facility] [address] [place] [phone] Ian Soares MD [address] [place] [phone] [facility] Comment on above: Arrived Start: 01-11-2025 Urine screening for protein Diabetes: Urine Protein Screening [facility] Start: 12-20-2024 End: 12-20-2024 Patient encounter procedure 12/20/2024 10:00 AM EST Office Visit [facility] [address] [place] [phone] Daniel Cardoso, GREG [address] [place] [address] [facility] Start: 12-14-2024 [facility] Start: 12-13-2024 Administration of prophylactic treatment [facility] Start: 12-13-2024 Referral to rehabilitation physician [facility] Start: 12-09-2024 [facility] Start: 12-09-2024 [facility] Start: 12-09-2024 Consultation [facility] Start: 12-09-2024 Hospital admission [facility] Start: 12-09-2024 Bacteria identified in Blood by Culture Blood Culture [facility] Start: 12-09-2024 Respiratory Ventilat ion, 24-96 Consecutive Hours Respiratory Ventilation, 24-96 Consecutive Hours [facility] Start: 11-27-2024 Pneumococcal Vaccine : 65+ Years (1 of 2 - PCV) Pneumococcal Vaccine: 65+ Years (1 of 2 - PCV) [facility] Comment on above: Postponed from 04/21 (Other Patient Reasons) Start: 10-10-2024 End: 10-10-2024 Patient encounter procedure 10/10/2024 9:20 AM EST Office Visit [facility] [address] [place] [address] Tashia Polk PA [address] [place] [address] [facility] [address] Start: 09-20-2024 End: 09-20-2024 Patient encounter procedure [facility] Comment on above: Arrived Start: 07-18-2024 End: 07-18-2024 Patient encounter procedure [facility] Start: 07-15-2024 Influenza vaccination [facility] Start: 01-13-2024 Hemoglobin A1c measurement Diabetes: Hemoglobin A1C [facility] Start: 2018 Fall Risk Screening Fall Risk Screen ing [facility] Start: 2003 Administration of varicella zoster vaccine Zoster (Shingles) Vaccine (1 of 2) [facility] Start: 1972 DTaP,Tdap and Td Vaccines (1 - Tdap) DTaP,Tdap and Td Vaccines (1 - Tdap) [facility] Start: 1971 Adult BMI Screening Adult BMI Screen ing [facility] Start: 1971 Diabetic foot examination Diabetic Foot Exam [facility] Start: 1965 Depression Screening Depression Scre ening [facility] Start: 1965 Tobacco Screening Tobacco Screening [facility] Start: 1959 Pneumococcal Vaccine : 65+ Years (1 of 2 - PCV) Pneumococcal Vaccine: 65+ Years (1 of 2 - PCV) [facility] Start: 1953 Glaucoma screening Diabetic Op hthalmology Exam [facility] Start: 1953 Screening for malign ant neoplasm of colon [facility] Start: 1953 Statin Use: Diabetic Statin Use: Claudine anthony [facility] BLOOD CULTURE 2 BLOOD CULTURE 2 Lab Routine 12/09/2024 4:21 PM EST [facility] metabo lic 1999 panel - Serum or Plasma [facility] Comprehensive metabo lic 1999 panel - Serum or Plasma [facility] Patient referral [facility] Work Phone: [facility] Immunizations Immunization Date Immunization Notes Care Provider Fa cility 12-31-2024 Pneumococcal Conjuga te PCV 20 La Pack [employer] Work Phone: [facility] 12-27-2024 SARS-COV-2 (COVID-19 ) vaccine, mRNA, spike protein, LNP, bivalent, preservative free, 30 mcg/0.3 mL dose, carolyn-sucrose formulation La Pack [employer] Work Phone: [facility] 08-14-2023 Influenza, High-dose Seasonal, Quadrivalent, Preservative Free Daniel Cardoso [employer] IN[employer] Work Phone: [facility] 08-14-2023 influenza virus vaccine, unspecified formulation Daniel Cardoso [employer] IN[employer] Work Phone: [facility] Payers Date Payer Category Payer Medicare [id number] 2024 Self-pay 2023 Medicare HMO [employer] [id number] 2021 Medicare (Managed Care) [facility] Member Subscriber Plan / Payer (Effective 2021-Present) Name: Kennedy Montañoalexander Ramirez Relation to Subscriber: Self Name: Kennedy Montañolene James Payer ID: Not on file Group ID: [id number] Type: Not on file Address: [address] [place] [id number] 2021 Unknown [id number] 2016 Medicare [id number] 1959 Unknown [id number] 1953 Unknown [id number] [id number]. 593 1953 Unknown [id number] 2.16.840.1.446377.3.579.2. 593 1953 Unknown [id number] 2.16.840.1.800183.3.579.2. 593 1953 Unknown [id number] 2.16.840.1.872305.3.579.2. 727 1953 Unknown [id number] 2.16.840.1.362416.3.579.2. 727 1953 Unknown [id number] 2.16.840.1.840924.3.579.2. 732 1953 Unknown [id number] 2.16.840.1.205300.3.579.2. 1259 1953 Unknown [id number] 2.16.840.1.988569.3.579.2. 1259 1953 Unknown [id number] 2.16.840.1.596118.3.579.2. 1259 1953 Unknown [id number] 2.16.840.1.587999.3.579.2. 1259 1953 Unknown [id number] 2.16.840.1.175429.3.579.2. 1259 Medicaid Medicaid [id number] Unknown [id number]. 531 Social History Date Type Detail Facility Tobacco smoking status [facility] Start: 03-08-2024 End: 06-21-2024 Sex Assigned At Female [facility] Start: 06-21-2024 [facility] History of tobacco use Cigarette Smoker [facility] History of tobacco use Passive smoker [facility] Start: 11-29-2019 End: 06-21-2024 Tobacco use and exposure Smokeless tobacco non-user [facility] Start: 06-21-2024 End: 06-26-2025 Alcoholic beverage intake Lifetime non-drinker (finding) [facility] Start: 03-08-2024 End: 06-21-2024 History of Social function [facility] Start: 10-17-2023 Alcohol Comment Caffeine: 2-3 cups per day [facility] Start: 1955 Sex assigned at Not on file [facility] Start: 12-13-2024 Tobacco smoking stat us [facility] Unknown if ever smoked [facility] Start: 12-14-2024 End: 01-04-2025 Sex Female (finding) [facility] Start: 1955 Sex Assigned At Female F [facility] Start: 11-29-2019 End: 01-04-2025 Tobacco smoking status PAIS Ex-smoker [facility] History of tobacco use Current smoker [facility] Start: 02-19-2021 Alcoholic beverage intake Current non-drinker of alcohol (finding) [facility] Childcare Unknown [facility] Medical Equipment Procedure Code Equipment Code Equipment Origin al Text Equipment Identifier Dates [id number] Start: 11-21-2023 End: 11-20-2024 1 each in the morning. [id number] Start: 11-21-2023 End: 11-20-2024 1 each by In Vit ro route Daily [id number] Start: 01-30-2025 End: 01-30-2026 Goals Date Patient Goal Desired Activity /State Functional Status Date Assessment Result Facility 12-14-2024 Functional status Patient at Baseline [facility] Work Phone: Mental Status Date Assessment Result Facility 12-14-2024 Cognitive function Cognitive Sta tus Patient at Baseline [facility] Work Phone: Clinical Notes 09-11-2024 to 07-31-2025 Note Date & Type Note Facility 07-31-2025 Evaluation note Diagnosis Onset Date Resolution Edema of both lower extremities acute July 31, 2025 10:36am Elevated TSH acute July 312024 10:36am Generalized anxiety disorder acute Anna 17th, 2025 10:36am Iron deficiency anemia due to chronic blood loss acute July 31, 2025 10:36am Recurrent major depressive disorder, in full remission acute July 31, 2025 10:36am Edema of both lower extremities acute August 22 8:52am Iron deficiency anemia due to chronic blood loss acute August 22 8:52am [facility] Work Phone: 1(764) 998-725008-13-2025 History of Present illness Narrative* La Pack NP - 06/26/2025 11:11 AM [...] EDTAssociated Problem(s): Edema of both lower legs Lalita [...] 163 Pt usually avgs around 140-150s * Laevan Pack, [employer]NESS INSTRUCTOR - 06/26/2025 10:30 AM EDT Images from [...] cholecalciferol (VITAMIN D-3) 50 mcg, Oral, Daily Tvmseyrwbei-Ncypyzzmc-Umemxm (Trelegy Ellipta) 200-62.5-25 MCG/ACT aerosol powder 1 Inhalation, Inhalation, Daily Dqbcopuyzbl-Cbvknqxeb-Csnmpg (Trelegy Ellipta) 200-62.5-25 MCG/ACT aerosol powder 1 [...] complication, without long-term current use of insulin ([facility]) Check blood sugars daily, notify if [...] metabolic panel COPD (chronic obstructive pulmonary disease) (HCC) Wears [...] dependence without complication Has not smoked since Cyprotex Generalized anxiety disorder Will increase dose of [...] dependence without complication Has not smoked since [employer]pro[employer] * La Pack NP - 06/26/2025 5:02 [...] Current meds: albuterol, trelegy documented in this encounterBoone Hospital [id number] Instructions* Patient Instructions* La Pack NP - 06/26/2025 10:30 AM EDT For your anxiety: we are going to increase sertraline to 100mg pill once a day. Also adding buspar 5mg twice a day for anxiety Add antibiotic for leg cephalexin twice for 10 days, and water pill for swelling leg lasix 20mg daily Check blood work in 10 days documented in this encounterBoone Hospital [id number] History of Present illness Narrative* La Pack NP - 02/06/2025 10:25 AM EDTAssociated Problem(s): Acute hypoxic respiratory failure (CMS/HCC) Wears oxygen at home Inhalers: trelegy, albuterol * MARIAJOSE FERRARA - 02/06/2025 10:00 AM EDT Pt states that the home health nurse came in on Tuesday checked her lungs and stated that her lungs were clear. That was in last official visit. Pt still has a persistent wet cough. Pt fell about 2-3 weeks ago-tripped over 02 cord and fell hit her top right head. 02 is set to 3L * La Pack NP - 02/06/2025 10:00 AM EDT Images from the original note [...] compliance problems. There is no history of CAD/CO. Diabetes She presents for her follow-up diabetic visit. She has type 2 diabetes mellitus. Her disease coursehas been stable. Hypoglycemia symptoms include nervousness/anxiousness. Pertinent negatives for hypoglycemia include no dizziness, headaches, seizures or tremors. Associated symptoms include polydipsi a and polyuria. Pertinent negatives for diabetes include [...] glucose range is 110-130 mg/dl. An LALITA in hibitor/angiotensin II receptor alysha is being taken. She does not see a lower in supervisor.Eye exam is current. Depression Visit Type: follow-up Patient presents with the following symptoms: depressed mood (occ), nervousness/anxiety and shortness of breath. Patient is not experiencing: anhedonia, decreased concentration, excessive worry, fatigue, feelingsof hopelessness, insomnia, irritability, memory impairment, muscle tension, [...] nausea, palpitations or suicidal ideas. Symptoms occur oc casionally. The severity of symptoms is mild. The [...] breakfast, Do not crush, chew, or split. Rrblztwitwy-Hrpxaalcr-Igcrco (Trelegy Ellipta) 200-62.5-25 MCG/ACT aerosol powder 1 [...] List Items Addressed This Visit Other hyperlipidemia (CMS/HCC) On statin therapy Check labs yearly and prn dose changes Relevant Orders Lipid panel Iron deficiency anemia due to chronic blood loss Takes supplement daily Check labs Relevant Orders CBC and differential Iron + transferrin + TIBC Ferritin Type 2 diabetes mellitus without complication, without long-term current use of insulin ([facility]) Check blood sugars daily, notify if [...] Recurrent major depressive disorder, in full remission ([facility]) Takes sertraline daily Screening mammogram, encounter for Relevant Orders Bilateral screening mammogram COPD (chronic obstructive pulmonary disease) ([facility]) - Primary Wears oxygen at home Current meds: albuterol, trelegy Primary hypertension ([facility]) Please check blood pressure daily and record [...] D 25 hydroxy Acute hypoxic respiratory failure ([facility]) Wears oxygen at home Inhalers: trelegy, albuterol Cigarette nicotine dependence without complication Has not smoked since Cyprotex Generalized anxiety disorder ([facility]) Takes ativan prn, and sertraline Relevant Orders TSH * La Pack NP - 02/06/2025 6:32 AM EDTAssociated Problem(s): Other hyperlipidemia ([facility]) On statin therapy Check labs yearly and prn dose changes * La Pack NP - 02/06/2025 6:29 AM EDTAssociated Problem(s): Generalized anxiety disorder (CMS/HCC) Takes ativan prn, and sertraline * La Pack NP - 02/06/2025 6:28 AM EDTAssociated Problem(s): Recurrent major depressive disorder, in full remission (CMS/HCC) Takes sertraline daily * La Pack NP - 02/06/2025 6:27 AM EDTAssociated Problem(s): Cigarette nicotine dependence without complication Has not smoked since [facility] * La Pack NP - 02/06/2025 6:27 AM EDTAssociated Problem(s): Iron deficiency anemia due to chronic blood loss Takes supplement daily Check labs * La Pack NP - 02/06/2025 6:27 AM EDTAssociated Problem(s): Vitamin D deficiency Taking supplement 2,000 international units daily Check labs * La Pack NP - 02/06/2025 6:26 AM EDTAssociated Problem(s): Type 2 diabetes mellitus without complication, without long-term current useof insulin ([facility]) Check blood sugars daily, notify if [...] simple sugars. Current med: arb, metformin, statin * La Pack NP - 02/06/2025 6:25 AM EDTAssociated Problem(s): Primary hypertension ([facility]) Please check blood pressure daily and record DASH diet Limit caffeine Take medication as directed Contact office if chest pain, pressure, dizziness, shortness of breath, swelling legs Recommend slow position changes Current meds: losartan * La Pack NP - 02/06/2025 6:23 AM EDTAssociated Problem(s): COPD (chronic obstructive pulmonary disease) ([facility]) Wears oxygen at home Current meds: albuterol, trelegy documented in this encounterBoone Hospital [id number] Instructions* Patient Instructions* La Pack NP - 02/06/2025 10:00 AM EDT Get labs completed fasting 8 hours Mammogram we will fax order to [facility], if you dont hear from them in 2 weeks, call [phone] Great job on quitting smoking documented in this encounterBoone Hospital [id number] History of Present illness Narrative* La Pack NP - 01/23/2025 1:10 PM EDTAssociated Problem(s): Scalp laceration, sequela No s/s infection Neuro exam is normal I do not suspect her fever is related to this Suspect possible resp * La Pack NP - 01/23/2025 1:09 PM EDTAssociated Problem(s): COPD exacerbation (CMS/[facility]) Will add augmentin, no cxr at this time, can cont albuterol prn and trelegy as directed Fluids, and encourage cough and deep breathing If worsening in sxs go to Er * La Pack NP - 01/23/2025 11:30 AM EDT Images from the original note were not included. Julian Montaño is a 69 y.o. female presents with chief complaint of Suture / Staple Removal (head) HPI: [facility] ER on 01/14/25 for scalp lac, s/p [...] breakfast, Do not crush, chew, or split. Uogmuofdgwg-Nksttrlmh-Pkpbxi (Trelegy Ellipta) 200-62.5-25 MCG/ACT aerosol powder 1 [...] of the risks of continued smoking: stroke, CO, all forms of cancer, lung disease, and . Options for quitting smoking include: cold turkey, hypnosis, acupuncture, nicotine replacement meds(gum, lozenges, and patches), Buproprion, and Varenicline. At this time pt is encouraged to evaluate their goals for wanting to quit smoking, and reach out toprovider when ready to start this process Scalp [...] Relevant Medications amoxicillin-clavulanate (Augmentin) 875-125 MG tablet * La Pack NP - 01/23/2025 6:53 AM EDTAssociated Problem(s): Cigarette nicotine dependence without complication The patient has been advised of the risks of continued smoking: stroke, CO, all forms of cancer, lung disease, and . Options for quitting smoking include: cold turkey, hypnosis, acupuncture, nicotine replacement meds(gum, lozenges, and patches), Buproprion, and Varenicline. At this time pt is encouraged to evaluate their goals for wanting to quit smoking, and reach out toprovider when ready to start this process documented in this encounterBoone Hospital [id number] Instructions* Patient Instructions* La Pack NP - 01/23/2025 11:30 AM EDT May wash hair, Take augmentin atb as directed, fluids, encourage cough and deep breathing If worsening breathing go to ER documented in this encounterNOMS [id number] History of Present illness Narrative* Ian Soares MD - 01/14/2025 9:55 AM ESTAssociated Problem(s): Type 2 diabetes mellitus without complication, without long-term current useof insulin (CMS/HCC) BS controlled and monitor. Stick to ADA diet and limit carbs. * Ian Soares MD - 01/14/2025 9:55 AM ESTAssociated Problem(s): Primary hypertension ([facility]/HCC) BP controlled and monitor PRN. * Ian Soares MD - 01/14/2025 9:54 AM ESTAssociated Problem(s): Influenza A Recent infection but improved and monitor. * Ian Soares MD - 01/14/2025 9:54 AM ESTAssociated Problem(s): COPD (chronic obstructive pulmonary disease) (CMS/HCC) Breathing stable and continue inhalers. Use albuterol nebulized PRN. Script for new nebulizer machine to patient. * Ian Soares MD - 01/14/2025 9:54 AM ESTAssociated Problem(s): Acute hypoxic respiratory failure ([facility]/HCC) SpO2 stable and wean oxygen as tolerated. * Ian Soares MD - 01/14/2025 9:30 AM EST Images from the original note were not included. Subjective Patient ID: Julian Montaño is a 69 y.o. female who presents for Follow-up (Hospital f/u), Sore Throat, and Earache (Right ear). Follow up from hospital and SNF. Patient found unresponsive at home and intubated by EMS. Br[facility] to [facility] transferred to [facility]. Admitted 12/09-12/14 and treated for influenza A [...] limit carbs. COPD (chronic obstructive pulmonary disease) (CMS/[facility]) Breathing stable and continue inhalers. Use albuterol nebulized PRN. Script for new nebulizer machine to patient. Relevant Medications albuterol HFA 90 mcg/act inhaler Primary hypertension (CMS/HCC) BP controlled and monitor PRN. Acute hypoxic respiratory failure (CMS/HCC) SpO2 stable and wean oxygen as tolerated. Influenza A - Primary Recent infection but improved and monitor. documented in this encounterBoone Hospital [id number] History of Present illness Narrative* Stephen Macias, DO - 01/01/2025 1:19 PM EST Patient Name: Julian Montaño Date of : 1955 Date of Service: 01/01/2025 Facility: [facility] Type of Visit: Skilled Visit Subjective Julian Montaño is a 69 y.o. female seen today at detention facility for therapy visit. Julian is participating [...] Exam Vitals reviewed. Exam conducted with a male infertility specialist present (Priyank Ward MS3). Constitutional: General: She [...] / Plan 1. Acute hypoxic respiratory failure ([facility]) 2. Aspiration pneumonia, unspecified aspiration pneumonia type, unspecified laterality, unspecifiedpart of lung ([facility]) 3. Chronic obstructive pulmonary disease, unspecified COPD type ([facility]) 4. Influenza A 5. Type 2 diabetes mellitus without complication, without long-term current use of insulin ([facility]) 6. Other abnormalities of gait and mobility [...] BY: Stephen Macias DO documented [facility] History of Present illness Narrative* Stephen Macias DO - 12/28/2024 2:56 PM EST Patient Name: Julian Montaño Date of : 1955 Date of Service: 12/28/2024 Facility: [facility] Type of Visit: Skilled Visit Subjective Julian Montaño is a 69 y.o. female seen today at detention facility for therapy visit. Julian is in therapy. She is slowly improving. Staff is needing a lnsz-iz-[id number] visit to document her oxygen in wheelchair [...] Exam Vitals reviewed. Exam conducted with a male infertility specialist present (Priyank Ward MS3). Constitutional: General: She [...] oxygen-dependent at this time. She needs to continueoxygen at 4 liters/minute via nasal cannula due [...] BY: Stephen Macias DO documented in this encounterSalem [facility]02-11-2025 History of Present illness Narrative* Stephen Macias DO - 12/25/2024 11:59 PM EST Patient Name: Julian Montaño Date of : 1955 Date of Service: 12/25/2024 Facility: [facility] Type of Visit: Skilled Visit Subjective Julian Montaño is a 69 y.o. female seen today at detention facility for therapy visit. Julian is participating [...] Exam Vitals reviewed. Exam conducted with a male infertility specialist present (Priyank Ward MS3). Constitutional: General: She [...] BY: Stephen Macias DO documented in this encounterSalem [facility]02-04-2025 History of Present illness Narrative* Stephen Macias DO - 12/18/2024 11:59 PM EST Patient Name: Julian Montaño Date of : 1955 Date of Service: 12/18/2024 Facility: [facility] Type of Visit: Admission H&P Subjective Julian Montaño is a 69 y.o. female seen today at detention facility for admission H&PLakeisha Gardiner presents to [facility] for [facility] following hospitalization at [facility]. She was diagnosed with acute hypoxic respiratory failure due to COPD, aspirationpneumonia and influenza a infection. She is weak [...] [facility] she was found unresponsive on the floor. She did to be intubated and was placed on a ventilator. She was eventually weaned off. She was given a course of antibiotics, steroidsand Tamiflu. She was told that she might have had a heart attack. She did have an echocardiogram which showed normal EF of 65-70%. Past Medical History: Diagnosis Date Acoustic neuroma ([facility]) Anemia Asymmetric SNHL (sensorineural hearing loss) Benign neoplasm of cranial nerve ([facility]) Bilateral cataracts Chronic bronchitis ([facility]) Chronic cough Constipation COPD (chronic obstructive pulmonary disease) ([facility]) Depression Diabetes mellitus ([facility]) history of GERD (gastroesophageal reflux disease) Hemorrhoids History of brain tumor removed in 1997, came back 2018 Hyperlipidemia Hypertension Macular degeneration Osteoarthritis of hip Personal history of tobacco use Positive occult stool blood test Right acoustic neuroma ([facility]) Splenic sequestration Vitamin D deficiency Past Surgical [...] past medical history, past social history, past surgicalhistory, problem list, and medication reconciliation was completed including current medication andpost discharge medication. Review of Systems Constitutional: Positive [...] Exam Vitals reviewed. Exam conducted with a male infertility specialist present (Priyank Ward MS3). Constitutional: General: She [...] / Plan 1. Acute hypoxic respiratory failure ([facility]) 2. Chronic obstructive pulmonary disease, unspecified COPD type ([facility]) 3. Influenza A 4. Aspiration pneumonia, unspecified aspiration pneumonia type, unspecified laterality, unspecifiedpart of lung ([facility]) 5. Depression, unspecified depression type 6. Cigarette smoker 7. Type 2 diabetes mellitus without complication, without long-term current use of insulin ([facility]) 8. Anxiety Admit to [facility] [...] for shortness a breath. She currently is wheezingand feels short of breath. All medications reviewed and are medically necessary. Plan to discharge home when able to. ELECTRONICALLY SIGNED BY: Stephen Macias DO documented in this encounterOur Lady of [facility] - AndersonU.S. Fiduc[facility] [id number] Discharge summary Author Daniel Garza [facility] Note Date/Time December 14, 2024 2 :47pm [facility] [address] [place] [address] Discharge Summary Signed Patient: Julian Montaño MR#: [id number] : 1955 Acct:[id number] Age/Sex: 69 / F Adm Date: 5 Loc: Room: [address] [place] [address]: Daniel Garza MD Copies to: MD Daniel Cruz, HEALTH AND WELLNESS INSTRUCTOR-C~ Providers Date of Discharge: 12/14/24 Discharging Provider: [...] Consult to Physiatry Routine Comment: Consulting Provider: EDMUNDO - Phys Med - Rehab Reason For [...] as GERD and depression. Patient came to [facility] after she was intubated by the [...] vomiting and no other concerns as per [facility] documentation. Labs at [facility] showed CBC with leukocytosis and left shift, [...] signs ofUTI. Her ABG was done at [facility] ER showed pH of 7.16 as well as PaCO2 of 71.5. She was intubated by EMS, was given 100 mg of succinylcholine 60 mg of ketamine and then 50 mg of fentanyl and 5 mg of Versed as well as 6.4 mg of Elconin. Also they reached out to cardiology at [facility] recommending again heparinization. EKG showed sinus tachycardia [...] started on bronchodilator steroid antibiotics and oseltamivir. Strawhat Blocking Operator was consulted who recommended continuing the same. [...] troponin likely in setting of type II CO. Follow-up echo showed normal ejection fraction of 65 to 70% with normal wall motion. PMR was consulted for possible inpatient rehab who recommended discharge to detention facility. Patient was waiting for pre-CERT to detention facility and is finally approved and is being dischargedthere. Condition Condition at Discharge: Stable Time Spent with Patient Time spent providing/coordinating discharge services (# min): 38 Discharge Plan Discharge Plan [facility] Disposition: [facility] Additional Instructions: [facility] to manage care: - Full code [...] with device INHALATION Follow Up: Daniel Cardoso, HEALTH AND WELLNESS INSTRUCTOR-C [Primary Care Provider] - (Follow-up with your Primary Care Provider after discharge from [facility]) Exam Physical Exam Vital Signs: Temp [...] % (Auto) 84.6, Lymph % (Auto) 7.0, Vermilion % (Auto) 8.2, Eos % (Auto) 0.0, Baso % (Auto) 0.2, Nucleat RBC Rel Count 0.1, Neut # (Auto) 7.2, Lymph # (Auto) 0.6 L, Vermilion # (Auto) 0.7, Eos # (Auto) 0.0, Baso # (Auto) 0.0 12/14/24 04:54: PHA Creatinine Clear 66.51, Sodium 131 L, Potassium 4.1, Chloride 93 L, Carbon Dioxide 29.4, Anion Gap 12.7, BUN 24, Creatinine 0.81, EstGFR (CKD- EPI) > 60.0, Glucose 145 H, Calcium 9.2, Total Bilirubin 0.6, AST 29, ALT 55 H, Alkaline Phosphatase 84, Total Protein 6.9, Albumin 3.7, Globulin 3.2,Albumin/Globulin Ratio 1.2 12/13/24 20:49: POC Glucose 277, POC Glucose Comment Glu2: cleaned meter 12/13/24 16:15: POC Glucose 141 Documented By: Daniel Garza MD 12/14/24 1443 Signed By: <Electronically signed by Daniel Garza MD> 12/14/24 1447 [facility] Work Phone: 1(498) 552-301801-31-2025 Progress note Author Daniel Garza [facility] Note Date/Time December 14, 2024 1 :58pm [facility] [address] [place], [place] [id number] Hospitalist Progress Note Signed Patient: Julian Montaño MR#: [id number] : 1955 Acct:[id number] Age/Sex: 69 / F Adm Date: 5 Loc: Room: [address] [place] [address] Type: ADM IN Attending Dr: Daniel Garza MD Copies to: ~ Date of Service: 12/14/2024 Subjective Subjective Narrative: This is a 69 y.o female with past medical history of COPD, dyslipidemia, hypertension, type 2 diabetes as well as GERD and depression. Patient came to [facility] after she was intubated by the [...] vomiting and no other concerns as per [facility] documentation. Labs at [facility] showed CBC with leukocytosis and left shift, [...] signs ofUTI. Her ABG was done at [facility] ER showed pH of 7.16 as well as PaCO2 of 71.5. She was intubated by EMS, was given 100 mg of succinylcholine 60 mg of ketamine and then 50 mg of fentanyl and 5 mg of Versed as well as 6.4 mg of Elconin. Also they reached out to cardiology at [facility] recommending again heparinization. EKG showed sinus tachycardia [...] started on bronchodilator steroid antibiotics and oseltamivir. Strawhat Blocking Operator was consulted who recommended continuing the same. [...] no water. Elevated troponin likely type 2 CO -Continue on steroids, bronchodilator, oseltamivir and antibiotics -ICU consult-appreciate recommendation -As per her daughter, pt does not drink alcohol or use drugs, She is a very active smoker -HSQ for DVT prophylaxis -Pantoprazole IV 40 mg daily for GI prophylaxis -Full code -consulted cardio-believes elevated troponin likely in setting of type II CO. Follow-up echo showed normal ejection fraction of 65 to 70% with normal wall motion -PMR was consulted who recommended discharge to detention facility. Full code Documented By: Daniel Garza MD 12/14/24 1356 Signed By: <Electronically signed by Daniel Garza MD> 12/14/24 4968 [facility] Work Phone: 1(418) 452-341701-31-2025 Progress note Author Cecilia Ruiz [facility] Note Date/Time December 14, 2024 1 :18pm [facility] [address] [place] [address] Pulmonology Progress Note Signed Patient: Julian Montaño MR#: [id number] : 1955 Acct:[id number] Age/Sex: 69 / F Adm Date: 5 Loc: Room: [address] [place] [address] Type: ADM IN Attending Dr: Daniel Garza [...] By: <Electronically signed by Cecilia Ruiz MD> 12/14/248 [facility] Work Phone: 1([phone]) 429-476701-31-2025 [id number] Discharge Summary Signed Patient: Julian Montaño MR#: [id number] : 1955 Acct:[id number] Age/Sex: 69 / F Adm Date: 5 Loc: Room: [address] [place] [address]: Daniel Garza MD Copies to: MD Daniel Cruz, HEALTH AND WELLNESS INSTRUCTOR-C~ Providers Date of Discharge: 12/14/24 Discharging Provider: [...] as GERD and depression. Patient came to [facility] after she was intubated by the [...] vomiting and no other concerns as per [facility] documentation. Labs at [facility] showed CBC with leukocytosis and left shift, [...] no signs ofUTI. Her ABG wasdone at [facility] ER showed pH of 7.16 as well as PaCO2 of 71.5. She was intubated by EMS, was given 100 mg of succinylcholine 60 mg of ketamine and then 50 mg of fentanyl and 5 mg of Versed as well as 6.4 mg of Elconin. Also they reached out to cardiology at [facility] recommending again heparinization. EKG showed sinus tachycardia [...] started on bronchodilator steroid antibiotics and oseltamivir. Strawhat Blocking Operator was consulted who recommended continuing the same. [...] troponin likely in setting of type II CO. Follow-up echo showed normal ejection fraction of 65 to 70% with normal wall motion. PMR was consulted for possible inpatient rehab who recommended discharge to detention facility. Patient was waiting for pre-CERT to detention facility and is finally approved and isbeing dischargedthere. Condition Condition at Discharge: Stable Time Spent with Patient Time spent providing/coordinating discharge services (# min): 38 Discharge Plan Discharge Plan Patient Disposition: [facility] Additional Instructions: [facility] to manage care: - Full code [...] with device INHALATION Follow Up: Daniel Cardoso, HEALTH AND WELLNESS INSTRUCTOR-C [Primary Care Provider] - (Follow-up with your Primary Care Provider after discharge from [facility]) Exam Physical Exam Vital Signs: Temp [...] % (Auto) 84.6, Lymph % (Auto) 7.0, Vermilion % (Auto) 8.2, Eos % (Auto) 0.0, Baso % (Auto) 0.2, Nucleat RBC Rel Count 0.1, Neut # (Auto) 7.2, Lymph # (Auto) 0.6 L, Vermilion # (Auto) 0.7, Eos # (Auto) 0.0, [...] Garza MD 12/14/24 144 Signed By: 12/14/24 1447 [facility]01-31-20[place] [address] Hospitalist Progress Note Signed Patient: Julian Montaño MR#: [id number] : 1955 Acct:[id number] Age/Sex: 69 / F Adm Date: 5 Loc: Room: 7W9397-8 Type: ADM IN Attending Dr: Daniel Garza MD Copies to: ~ Date of Service: 12/14/2024 Subjective Subjective Narrative: This is a 69 y.o female with past medical history of COPD, dyslipidemia, hypertension, type 2 diabetes as well as GERD and depression. Patient came to [facility] after she was intubated by the [...] vomiting and no other concerns as per [facility] documentation. Labs at [facility] showed CBC with leukocytosis and left shift, [...] no signs ofUTI. Her ABG wasdone at [facility] ER showed pH of 7.16 as well as PaCO2 of 71.5. She was intubated by EMS, was given 100 mg of succinylcholine 60 mg of ketamine and then 50 mg of fentanyl and 5 mg of Versed as well as 6.4 mg of Elconin. Also they reached out to cardiology at [facility] recommending again heparinization. EKG showed sinus tachycardia [...] started on bronchodilator steroid antibiotics and oseltamivir. Strawhat Blocking Operator was consulted who recommended continuing the same. [...] no water. Elevated troponin likely type 2 CO -Continue on steroids, bronchodilator, oseltamivir and antibiotics -ICU consult-appreciate recommendation -As per her daughter, pt does not drink alcohol or use drugs, She is a very active smoker -HSQ for DVT prophylaxis -Pantoprazole IV 40 mg daily for GI prophylaxis -Full code -consulted cardio-believes elevated troponin likely in setting of type II CO. Follow-up echo showednormal ejection fraction of 65 to 70% with normal wall motion -PMR was consulted who recommended discharge to detention facility. Full code Documented By: Daniel Garza MD 12/14/24 1356 Signed By: 12/14/24 1358 [facility]01-31-2025 [place] [address] Pulmonology Progress Note Signed Patient: Julian Montaño MR#: [id number] : 1955 Acct:[id number] Age/Sex: 69 / F Adm Date: 5 Loc: Room: [address] [place] [address] Type: ADM IN Attending Dr: Daniel Garza [...] By: Cecilia Ruiz MD 12/14/241316 Signed By: 12/14/241317 [facility]01-30-2025 Progress note Author Cecilia Ruiz [facility] Note Date/Time December 13, 2024 1 :53pm [facility] [address] [place] [address] Pulmonology Progress Note Signed Patient: Julian Montaño MR#: [id number] : 1955 Acct:[id number] Age/Sex: 69 / F Adm Date: 5 Loc: Room: [address] [place] [address] Type: ADM IN Attending Dr: Daniel Garza [...] <Electronically signed by Cecilia Ruiz MD> 12/13/24 [facility] Work Phone: 1([phone]) 632-987101-30-2025 Progress note Author Daniel Garza [facility] Note Date/Time December 13, 2024 1 :41pm [facility] [address] [place] [address] Hospitalist Progress Note Signed Patient: Julian Montaño MR#: [id number] : 1955 Acct:[id number] Age/Sex: 69 / F Adm Date: 5 Loc: 4 Room: [address] [place] [address] Type: ADM IN Attending Dr: Daniel Garza MD Copies to: ~ Date of Service: 12/13/2024 Subjective Subjective Narrative: This is a 69 y.o female with past medical history of COPD, dyslipidemia, hypertension, type 2 diabetes as well as GERD and depression. Patient came to [facility] after she was intubated by the [...] vomiting and no other concerns as per [facility] documentation. Labs at [facility] showed CBC with leukocytosis and left shift, [...] signs ofUTI. Her ABG was done at [facility] ER showed pH of 7.16 as well as PaCO2 of 71.5. She was intubated by EMS, was given 100 mg of succinylcholine 60 mg of ketamine and then 50 mg of fentanyl and 5 mg of Versed as well as 6.4 mg of Elconin. Also they reached out to cardiology at [facility] recommending again heparinization. EKG showed sinus tachycardia [...] started on bronchodilator steroid antibiotics and oseltamivir. Strawhat Blocking Operator was consulted who recommended continuing the same. [...] no water. Elevated troponin likely type 2 CO -Continue on steroids, bronchodilator, oseltamivir and antibiotics -ICU consult-appreciate recommendation -As per her daughter, pt does not drink alcohol or use drugs, She is a very active smoker -HSQ for DVT prophylaxis -Pantoprazole IV 40 mg daily for GI prophylaxis -Full code -consulted cardio-believes elevated troponin likely in setting of type II CO. Follow-up echo showed normal ejection fraction of 65 to 70% with normal wall motion -PMR was consulted who recommended discharge to detention facility. Full code Documented By: Daniel Garza MD 12/13/24 1337 Signed By: <Electronically signed by Daniel Garza MD> 12/13/24 1341 [facility] Work Phone: [phone]) 405-945901-30-2025 Consult note Author Dave Bazan [facility] Note Date/Time December 13, 2024 1 :29pm [facility] [address] [place] [address] Physiatry (Rehab) Consult Note Signed Patient: Julian Montaño MR#: [id number] : 1955 Acct:[id number] Age/Sex: 69 / F Adm Date: 5 Loc: Room: [address] [place] [address] Type: ADM IN Attending Dr: Daniel Garza MD Copies to: MD Daniel Cruz NP-C Christian D Siebenaler, MD~ HPI Consult Date: 12/13/24 Requesting Physician: Daniel Garza MD Primary Care Provider: SILVER Francois Consult Narrative HPI: Ms. Montaño is a 69 year old female with PMH COPD, dyslipidemia, hypertension, type2 diabetes as well as GERD and depression. The patient was transferred tO [facility] from [facility] after being found unresponsive and being intubated [...] negative unless noted below or in HPI [facility] Medical History Depressed Acute hypoxic respiratory failure [...] % (Auto) 87.0 Lymph % (Auto) 6.4 Vermilion % (Auto) 6.5 Eos % (Auto) 0.0 Baso % (Auto) 0.1 Nucleat RBC Rel Count 0.1 Neut # (Auto) 9.3 H Lymph # (Auto) 0.7 L Vermilion # (Auto) 0.7 Eos # (Auto) 0.0 [...] MPV Neut % (Auto) Lymph % (Auto) Vermilion % (Auto) Eos % (Auto) Baso % (Auto) Nucleat RBC Rel Count Neut # (Auto) Lymph # (Auto) Vermilion # (Auto) Eos # (Auto) Baso # [...] this patient on discharge should be a detention facility. She does not meet inpatient rehab [...] chart, including current orders, allied health and leasing consultant notes, labs/imaging and performed barrow elements of exam and I formulated the plan of care and facilitated the medical decision making. I completed a substantive portion of this encounter, the medical decision making portion of this note in its entirety, including Allied health note review, nursing note review, leasing consultant note review, discussion with nursing and case management, and more than 50% of my time was spent on counseling and coordination of care, time spent 45 minutes Documented By: Dave Bazan MD 1254 Signed By: <Electronically signed by Dave Bazan MD> 12/13/24 1323 [facility] Work Phone: 1(661) 897-666301-30-2025 [place] [id number] Pulmonology Progress Note Signed Patient: Julian Montaño MR#: [id number] : 1955 Acct:[id number] Age/Sex: 69 / F Adm Date: 5 Loc: 4 Room: [address] [place] [address] Type: ADM IN Attending Dr: Daniel Garza [...] MD 12/13/24 1351 Signed By: 12/13/24 1353 [facility]01-30-2025 [place] [address] Hospitalist Progress Note Signed Patient: Julian Montaño MR#: [id number] : 1955 Acct:[id number] Age/Sex: 69 / F Adm Date: Loc: Room: [address] [place] [address] Type: ADM IN Attending Dr: Daniel Garza MD Copies to: ~ Date of Service: 12/13/2024 Subjective Subjective Narrative: This is a 69 y.o female with past medical history of COPD, dyslipidemia, hypertension, type 2 diabetes as well as GERD and depression. Patient came to [facility] after she was intubated by the [...] vomiting and no other concerns as per [facility] documentation. Labs at [facility] showed CBC with leukocytosis and left shift, [...] no signs ofUTI. Her ABG wasdone at [facility] ER showed pH of 7.16 as well as PaCO2 of 71.5. She was intubated by EMS, was given 100 mg of succinylcholine 60 mg of ketamine and then 50 mg of fentanyl and 5 mg of Versed as well as 6.4 mg of Elconin. Also they reached out to cardiology at [facility] recommending again heparinization. EKG showed sinus tachycardia [...] started on bronchodilator steroid antibiotics and oseltamivir. Strawhat Blocking Operator was consulted who recommended continuing the same. [...] 12/12/25 21:59 Not Given ACHS [facility] Protocol Oseltamivir Phosphate 30 mg [...] no water. Elevated troponin likely type 2 CO -Continue on steroids, bronchodilator, oseltamivir and antibiotics -ICU consult-appreciate recommendation -As per her daughter, pt does not drink alcohol or use drugs, She is a very active smoker -HSQ for DVT prophylaxis -Pantoprazole IV 40 mg daily for GI prophylaxis -Full code -consulted cardio-believes elevated troponin likely in setting of type II CO. Follow-up echo showednormal ejection fraction of 65 to 70% with normal wall motion -PMR was consulted who recommended discharge to detention facility. Full code Documented By: Daniel Garza MD 12/13/24 1337 Signed By: 12/13/24 1341 [facility]01-30-2025 [place] [address] Physiatry (Rehab) Consult Note Signed Patient: Julian Montaño MR#: [id number] : 1955 Acct:[id number] Age/Sex: 69 / F Adm Date: 5 Loc: Room: [address] [place] [address] Type: ADM IN Attending Dr: Daniel Garza MD Copies to: MD Daniel Cruz HEALTH AND WELLNESS INSTRUCTOR-C Dave Bazan MD~ HPI Consult Date: 12/13/24 Requesting Physician: Daniel Garza MD Primary Care Provider: Daniel Cardoso, HEALTH AND WELLNESS INSTRUCTOR-C Consult Narrative HPI: Ms. Montaño is a 69 year old female with PMH COPD, dyslipidemia, hypertension, type2 diabetes as well as GERD and depression. The patient was transferred tO [facility] from [facility] after being found unresponsive and being intubated [...] negative unless noted below or in HPI [facility] Medical History Depressed Acute hypoxic respiratory failure [...] 62.5 mcg-vilant 25 mcg inhalat.powder (Trelegy Ellipta) ughuerkdgu21/27/25 [History] losartan 50 mg tablet mg 12/10/24 [...] % (Auto) 87.0 Lymph % (Auto) 6.4 Vermilion % (Auto) 6.5 Eos % (Auto) 0.0 Baso % (Auto) 0.1 Nucleat RBC Rel Count 0.1 Neut # (Auto) 9.3 H Lymph # (Auto) 0.7 L Vermilion # (Auto) 0.7 Eos # (Auto) 0.0 [...] MPV Neut % (Auto) Lymph % (Auto) Vermilion % (Auto) Eos % (Auto) Baso % (Auto) Nucleat RBC Rel Count Neut # (Auto) Lymph # (Auto) Vermilion # (Auto) Eos # (Auto) Baso # [...] this patient on discharge should be a detention facility. She does not meet inpatient rehab [...] chart, including current orders, allied health and leasing consultant notes, labs/imaging and performed barrow elements of exam and I formulated the plan of care and facilitated the medical decision making. I completed a substantive portion of this encounter, the medical decision making portion of this note in its entirety, including Allied health note review, nursing note review, leasing consultant note review, discussion with nursing and case management, and more than 50% of my time was spent on counseling and coordination of care, time spent 45 minutes Documented By: Dave Bazan MD [id number] Signed By: 12/13/24 1329 [facility]01-29-2025 Progress note Author Daniel Garza [facility] Note Date/Time December 12, 2024 2 :45pm [facility] [address] [place] [address] Hospitalist Progress Note Signed Patient: Julian Montaño MR#: [id number] : 1955 Acct:[id number] Age/Sex: 69 / F Adm Date: 5 Loc: Room: [address] [place] [address] Type: ADM IN Attending Dr: Daniel Garza MD Copies to: ~ Date of Service: 12/12/2024 Subjective Subjective Narrative: This is a 69 y.o female with past medical history of COPD, dyslipidemia, hypertension, type 2 diabetes as well as GERD and depression. Patient came to [facility] after she was intubated by the [...] vomiting and no other concerns as per [facility] documentation. Labs at [facility] showed CBC with leukocytosis and left shift, [...] signs ofUTI. Her ABG was done at [facility] ER showed pH of 7.16 as well as PaCO2 of 71.5. She was intubated by EMS, was given 100 mg of succinylcholine 60 mg of ketamine and then 50 mg of fentanyl and 5 mg of Versed as well as 6.4 mg of Elconin. Also they reached out to cardiology at [facility] recommending again heparinization. EKG showed sinus tachycardia [...] started on bronchodilator steroid antibiotics and oseltamivir. Strawhat Blocking Operator was consulted who recommended continuing the same. [...] no water. Elevated troponin likely type 2 CO -Okay to be transferred out of ICU. [...] <Electronically signed by Daniel Garza MD> 12/12/24 1440 [facility] Work Phone: 1([phone] [place] [address] Hospitalist Progress Note Signed Patient: Julian Montaño MR#: [id number] : 1955 Acct:[id number] Age/Sex: 69 / F Adm Date: 5 Loc: Room: [address] [place] [address] Type: ADM IN Attending Dr: Daniel Garza MD Copies to: ~ Date of Service: 12/12/2024 Subjective Subjective Narrative: This is a 69 y.o female with past medical history of COPD, dyslipidemia, hypertension, type 2 diabetes as well as GERD and depression. Patient came to [facility] after she was intubated by the [...] vomiting and no other concerns as per [facility] documentation. Labs at [facility] showed CBC with leukocytosis and left shift, [...] no signs ofUTI. Her ABG wasdone at [facility] ER showed pH of 7.16 as well as PaCO2 of 71.5. She was intubated by EMS, was given 100 mg of succinylcholine 60 mg of ketamine and then 50 mg of fentanyl and 5 mg of Versed as well as 6.4 mg of Elconin. Also they reached out to cardiology at [facility] recommending again heparinization. EKG showed sinus tachycardia [...] started on bronchodilator steroid antibiotics and oseltamivir. Strawhat Blocking Operator was consulted who recommended continuing the same. [...] no water. Elevated troponin likely type 2 CO -Okay to be transferred out of ICU. -Continue on steroids, bronchodilator, oseltamivir and antibiotics -ICU consult-appreciate recommendation -As per her daughter, pt does not drink alcohol or use drugs, She is a very active smoker -HSQ for DVT prophylaxis -Pantoprazole IV 40 mg daily for GI prophylaxis -Full code -consulted cardio Documented By: Daniel Garza MD 12/12/241442 Signed By: 12/12/241444 [facility]01-29-2025 Progress note Author Cecilia Ruiz [facility] Note Date/Time December 12, 2024 1 1:35am [facility] [address] [place] [address] Pulmonology Progress Note Signed Patient: Julian Montaño MR#: [id number] : 1955 Acct:[id number] Age/Sex: 69 / F Adm Date: 5 Loc: Room: [address] [place] [address] Type: ADM IN Attending Dr: Daniel Garza [...] - Last 24 Hours: Intake & Output 01/28/25 01/29/25 01/29/25 23:59 07:59 15:59 Intake Total 160 / [...] signed by Cecilia Ruiz MD> 12/12/24 1135 [facility] Work Phone: 1(290) 480-268301-29-2025 [place] [address] Pulmonology Progress Note Signed Patient: Julian Montaño MR#: [id number] : 1955 Acct:[id number] Age/Sex: 69 / F Adm Date: 5 Loc: Room: [address] [place] [address] Type: ADM IN Attending Dr: Daniel Garza [...] Ruiz MD 12/12/241132 Signed By: 12/12/24 113 [facility]01-28-2025 Progress note Author Cecilia Ruiz [facility] Note Date/Time December 11, 2024 2 :49pm [facility] [address] [place] [address] Pulmonology Progress Note Signed Patient: Julian Montaño MR#: [id number] : 1955 Acct:[id number] Age/Sex: 69 / F Adm Date: 5 Loc: Room: [address] [place] [address] Type: ADM IN Attending Dr: Daniel Garza [...] signed by Cecilia Ruiz MD> 12/11/24 1449 [facility] Work Phone: 1([phone]) 749-907501-28-2025 Progress note Author Daniel Garza [facility] Note Date/Time December 11, 2024 2 :43pm [facility] [address] [place] [address] Hospitalist Progress Note Signed Patient: Julian Montaño MR#: [id number] : 1955 Acct:[id number] Age/Sex: 69 / F Adm Date: 5 Loc: Room: [address] [place] [address] Type: ADM IN Attending Dr: Daniel Garza MD Copies to: ~ Date of Service: 12/11/2024 Subjective Subjective Narrative: This is a 69 y.o female with past medical history of COPD, dyslipidemia, hypertension, type 2 diabetes as well as GERD and depression. Patient came to [facility] after she was intubated by the [...] vomiting and no other concerns as per [facility] documentation. Labs at [facility] showed CBC with leukocytosis and left shift, [...] signs ofUTI. Her ABG was done at [facility] ER showed pH of 7.16 as well as PaCO2 of 71.5. She was intubated by EMS, was given 100 mg of succinylcholine 60 mg of ketamine and then 50 mg of fentanyl and 5 mg of Versed as well as 6.4 mg of Elconin. Also they reached out to cardiology at [facility] recommending again heparinization. EKG showed sinus tachycardia [...] started on bronchodilator steroid antibiotics and oseltamivir. Strawhat Blocking Operator was consulted who recommended continuing the same. [...] 12/10/25 11:59 Not Given Q6HR [facility] Protocol Methylprednisolone Sodium Succinate 40 mg 12/10/24 [...] no water. Elevated troponin likely type 2 CO -Continue to admit in ICU -Continue on [...] signed by Daniel Garza MD> 12/11/24 1443 [facility] Work Phone: 1(903) 804-407301-28-2025 [id number] Pulmonology Progress Note Signed Patient: Julian Montaño MR#: [id number] : 1955 Acct:[id number] Age/Sex: 69 / F Adm Date: 5 Loc: Room: [address] [place] [address] Type: ADM IN Attending Dr: Daniel Garza [...] MD 12/11/24 1446 Signed By: 12/11/24 1449 [facility]01-28-[address] [address] Hospitalist Progress Note Signed Patient: Julian Montaño MR#: [id number] : 1955 Acct:[id number] Age/Sex: 69 / F Adm Date: 5 Loc: Room: [address] [place] [address] Type: ADM IN Attending Dr: Daniel Garza MD Copies to: ~ Date of Service: 12/11/2024 Subjective Subjective Narrative: This is a 69 y.o female with past medical history of COPD, dyslipidemia, hypertension, type 2 diabetes as well as GERD and depression. Patient came to [facility] after she was intubated by the [...] vomiting and no other concerns as per [facility] documentation. Labs at [facility] showed CBC with leukocytosis and left shift, [...] no signs ofUTI. Her ABG wasdone at [facility] ER showed pH of 7.16 as well as PaCO2 of 71.5. She was intubated by EMS, was given 100 mg of succinylcholine 60 mg of ketamine and then 50 mg of fentanyl and 5 mg of Versed as well as 6.4 mg of Elconin. Also they reached out to cardiology at [facility] recommending again heparinization. EKG showed sinus tachycardia [...] started on bronchodilator steroid antibiotics and oseltamivir. Strawhat Blocking Operator was consulted who recommended continuing the same. [...] no water. Elevated troponin likely type 2 CO -Continue to admit in ICU -Continue on [...] MD 12/11/24 1431 Signed By: 12/11/24 1443 [facility]01-28-2025 Consult note Author Krissy Cortez [facility] Note Date/Time December 10, 2024 1 0:30pm [facility] [address] [place] [address] Cardiology Consult Note Signed Patient: Julian Montaño MR#: [id number] : 1955 Acct:[id number] Age/Sex: 69 / F Adm Date: 5 Loc: Room: [address] [place] [address] Type: ADM IN Attending Dr: Daniel Garza MD Copies to: MD Daniel Cruz HEALTH AND WELLNESS INSTRUCTOR-C Suman Butler DO,RES Krissy Cortez MD~ Cardiology [...] who was transferred to our facility from [facility] last night. Per prior documentation, the patient arrived to [facility] ER after being intubated by EMS. She was reportedly found unresponsive by her boyfriend (unknown downtime) and was not responding. Additionally, prior documentation reveals that family was noting the patient complaining of shortness of breath for 2 days prior to arrival in the emergency department. [place] labs revealed a leukocytosis, hemoglobin of 10.6, [...] of Systems Unobtainable due to endotracheal tube [facility] History (Updated 12/10/24 @ 15:52 by [...] H Lymph # (Auto) N/A 0.2 L Vermilion # (Auto) N/A 0.5 Eos # (Auto) [...] recheck about 9 hours later -EKG from [facility] reviewed and shows sinus tachycardia with right bundle branch block without evidence of ischemic changes -I believe the elevated troponins indicative of a type II CO and have low suspicion for type I CO, however will obtain echocardiogram for further evaluation [...] agree with the resident's note. Type II CO in the setting of acute hypoxic respiratory failure. ECHO shows normal LVEF 65-70% with normal wall motion. Can consider stress MPI as outpatient once recovered from acute resp issues. Cardiology will see again as needed. = Documented By: Krissy Cortez MD 12/10/24 1020 Signed By: <Electronically signed by Krissy Cortez MD> 12/10/240 <Electronically signed by DO DEVEN Butler> 12/10/24 1554 [facility] Work Phone: 1(194) 139-740101-27-2025 [place] [address] Cardiology Consult Note Signed Patient: Julian Montaño MR#: [id number] : 1955 Acct:[id number] Age/Sex: 69 / F Adm Date: 5 Loc: Room: [address] [place] [address] Type: ADM IN Attending Dr: Daniel Garza MD Copies to: MD Daniel Cruz NP-C Kyle Denihan, DO,DEVEN Cortez MD~ Cardiology HPI History of [...] who was transferred to our facility from [facility] lastnight. Per prior documentation, the patient arrived to [facility] ER after being intubated by EMS. She was reportedly found unresponsive by her boyfriend (unknown downtime) and was not responding. Additionally, prior documentation reveals that family was noting the patient complaining of shortness ofbreath for 2 days prior to arrival in the emergency department. [place] labs revealed a leukocytosis, hemoglobin of 10.6, [...] 12/10/24 @ 15:52 by Suman Butler DO, DEVEN) Depressed Acute hypoxic respiratory failure Depression Dyslipidemia Diabetes type 2 HTN (hypertension) COPD exacerbation Social History Smoking Status: Unknown if ever smoked Meds Medications and Allergies Allergies No Known Allergies Allergy (Verified 12/09/24 23:48) Home Medications albuterol sulfate 90 mcg/actuation aerosol inhaler inhalation 12/10/24 [History] atorvastatin 40 mg tablet mg 12/10/24 [History] fluticasone fur. 200 mcg-umeclid 62.5 mcg-vilant 25 mcg inhalat.powder (Trelegy Ellipta) rhuxvxkeie02/27/25 [History] losartan 50 mg tablet mg 12/10/24 [...] H Lymph # (Auto) N/A 0.2 L Vermilion # (Auto) N/A 0.5 Eos # (Auto) [...] recheck about 9 hours later -EKG from [facility] reviewed and shows sinus tachycardia with right bundle branch block without evidence of ischemic changes -I believe the elevated troponins indicative of a type II CO and have low suspicion for type I CO, however will obtain echocardiogram for further evaluation [...] agree with the resident's note. Type II CO in the setting of acute hypoxic respiratory failure. ECHO shows normal LVEF 65-70% with normal wall motion. Can consider stress MPI as outpatient once recovered from acute resp issues. Cardiology will see again as needed. = Documented By: Krissy Cortez MD 12/10/24 1020 Signed By: 12/10/24 2230 12/10/24 1554 [facility]01-27-2025 Progress note Author Daniel Garza [facility] Note Date/Time December 10, 2024 8 :26pm [facility] [address] [place] [address] Hospitalist Progress Note Signed Patient: Julian Montaño MR#: [id number] : 1955 Acct:[id number] Age/Sex: 69 / F Adm Date: 5 Loc: Room: [address] [place] [address] Type: ADM IN Attending Dr: Daniel Garza MD Copies to: ~ Date of Service: 12/10/2024 Subjective Subjective Narrative: This is a 69 y.o female that appears from the medication reconciliation [facility], patient appears to have past medical history of COPD, dyslipidemia, hypertension, type 2 diabetes as well as GERD and depression. Patient came to [facility] ER after she was intubated by the [...] vomiting and no other concerns as per [facility] documentation. Labs at [facility] showed CBC with leukocytosis and left shift, [...] signs ofUTI. Her ABG was done at [facility] ER showed pH of 7.16 as well as PaCO2 of 71.5. She was intubated by EMS, was given 100 mg of succinylcholine 60 mg of ketamine and then 50 mg of fentanyl and 5 mg of Versed as well as 6.4 mg of Elconin. Also they reached out to cardiology at [facility] recommending again heparinization. EKG showed sinus tachycardia [...] no water. Elevated troponin likely type 2 CO -Continue to admit in ICU -Continue on [...] elevated troponin in setting of type II CO. Plan to obtain echo Documented By: Daniel Garza MD 12/10/242020 Signed By: <Electronically signed by Daniel Garza MD> 12/10/242025 [facility] Work Phone: 1([phone]) 797-376301-27-[address] [address] Hospitalist Progress Note Signed Patient: Julian Montaño MR#: [id number] : 1955 Acct:[id number] Age/Sex: 69 / F Adm Date: 5 Loc: Room: [address] [place] [address] Type: ADM IN Attending Dr: Daniel Garza MD Copies to: ~ Date of Service: 12/10/2024 Subjective Subjective Narrative: This is a 69 y.o female that appears from the medication reconciliation [facility], patient appears to have past medical history of COPD, dyslipidemia, hypertension, type 2 diabetes as well as GERD anddepression. Patient came to [facility] ER after she was intubated by the [...] vomiting and no other concerns as per [facility] documentation. Labs at [facility] showed CBC with leukocytosis and left shift, [...] no signs ofUTI. Her ABG wasdone at [facility] ER showed pH of 7.16 as well as PaCO2 of 71.5. She was intubated by EMS, was given 100 mg of succinylcholine 60 mg of ketamine and then 50 mg of fentanyl and 5 mg of Versed as well as 6.4 mg of Elconin. Also they reached out to cardiology at [facility] recommending again heparinization. EKG showed sinus tachycardia [...] 12/10/25 11:59 Not Given Q6HR [facility] Protocol Methylprednisolone Sodium Succinate 40 mg 12/10/24 [...] no water. Elevated troponin likely type 2 CO -Continue to admit in ICU -Continue on [...] elevated troponin in setting of type II CO. Plan to obtain echo Documented By: Daniel Garza MD 12/10/242020 Signed By: 12/10/242025 [facility]01-27-2025 Consult note Author Cecilia Ruiz [facility] Note Date/Time December 10, 2024 4 :[address] [place] [address] [place] [address] Pulmonology Consult Note Signed Patient: Julian Montaño MR#: [id number] : 1955 Acct:[id number] Age/Sex: 69 / F Adm Date: 5 Loc: Room: [address] [place] [address] Type: ADM IN Attending Dr: Daniel Garza MD Copies to: MD Cecilia Cruz MD Brittany N Fitzpatrick, HEALTH AND WELLNESS INSTRUCTOR-C~ HPI Date/Time of Consultation: Date of Service: 12/10/2024 Time of Service: 16:25 Consulting Provider: Cecilia Ruiz Requesting Provider: Daniel Garza Reason for Consult: Respiratory failure History of Present Illness History of present illness: Ms. Montaño is a 69 year old female with a past medical history of COPD, dyslipidemia, hypertension, type 2 diabetes as well as GERD and depression, presented to [facility] after she was found unresponsive by her [...] of Systems Unobtainable due to endotracheal tube [facility] Medical History (Updated 12/10/24 @ 15:52 by Suamn Butler DO, RES) Depressed Acute hypoxic respiratory [...] nondistended. Extremities: No edema. Skin: No lesions CHIEF CONTROLLER: Arouses to stimuli and follows simple commands. [...] signed by Cecilia Ruiz MD> 12/10/24 1632 [facility] Work Phone: 1(606) 184-449301-27-2025 [place] [address] Pulmonology Consult Note Signed Patient: Julian Montaño MR#: [id number] : 1955 Acct:[id number] Age/Sex: 69 / F Adm Date: 5 Loc: Room: [address] [place] [address] Type: ADM IN Attending Dr: Daniel Garza MD Copies to: MD Cecilia Cruz MD Brittany N Cardoso, SILVER~ HPI Date/Time of Consultation: Date of Service: 12/10/2024 Time of Service: 16:25 Consulting Provider: Cecilia Ruiz Requesting Provider: Daniel Garza Reason for Consult: Respiratory failure History of Present Illness History of present illness: Ms. Montaño is a 69 year old female with a past medical history of COPD, dyslipidemia, hypertension, type 2 diabetes as well as GERD and depression, presented to [facility] after she was found unresponsive by her [...] of Systems Unobtainable due to endotracheal tube [facility] Medical History (Updated 12/10/24 @ 15:52 by [...] nondistended. Extremities: No edema. Skin: No lesions CHIEF CONTROLLER: Arouses to stimuli and follows simple commands. [...] Cecilia Ruiz MD 12/10/24 1625 Signed By: 12/10/24 1632 [facility]01-26-2025 Evaluation note* Diagnosis Onset Date Resolution Status [...] 2024 9:05pm Tobacco abuse acute November 9:05pm [facility] Work Phone: 1([phone]) 965-235801-26-2025 Evaluation note* Diagnosis Onset Date Resolution Status [...] 9:05pm Hypotension resolved December 09, 2024 9:05pm [facility] Work Phone: 1(559) 369-182211-07-2024 History of Present illness Narrative* Daniel Cardoso NP - 09/20/2024 10:53 AM ESTAssociated Problem(s): Type 2 diabetes mellitus without complication, without long-term current useof insulin ([facility]) Currently taking Metformin 500mg Most recent [...] MODERATE RISK >11.0 HIGH RISK Resulting Agency [facility] DMII: Most recent labs: hemoglobin A1C 6.0% [...] List Items Addressed This Visit Other hyperlipidemia (CMS/HCC) Currently taking Atorvastatin 40mg Denies any myalgias. Continue current regimen. Type 2 diabetes mellitus without complication, without long-term current use of insulin ([facility] Currently taking Metformin 500mg Most recent labs: [...] Asthma with COPD (chronic obstructive pulmonary disease) ([facility]) Currently taking Trelegy Daily and Albuterol PRN No exacerbations recently Reports using rescue inhaler 3 times per month. Continue current regimen Primary hypertension ([facility] - Primary Currently taking Losartan-hydrochlorothiazide 50/12.5mg Checks [...] (Augmentin) 875-125 MG tablet documented in this encounterBo[facility] [id number] Instructions* Patient Instructions* Daniel Cardoso NP - [...] if you need anything! documented in this [facility]10-29-2024 Telephone encounter Note* Telephone Encounter - Sabina Black MA - 09/11/2024 3:30 PM EDT Pt requesting a refill on her mobic, ANETTE:06/21/2024 NOV:09/20/2024 [facility] [id number] Miscellaneous Notes* Telephone Encounter - Sabina Black MA - 09/11/2024 3:30 PM EDT Pt requesting a refill on her mobic, ANETTE:06/21/2024 NOV:09/20/2024 [facility] this [facility] No data available for this section [facility] Diagnosis Iron deficiency anemia due to chronic blood loss- Primary Iron deficiency anemia secondary to blood loss (chronic) Current smoker Other hyperlipidemia ([facility]) Moderate persistent asthma without complication ([facility]) Type 2 diabetes mellitus without complication, without long-term current use of insulin ([facility]) Screening mammogram, encounter for Recurrent major depressive disorder, in full remission ([facility]) Asthma with COPD (chronic obstructive pulmonary disease) ([facility])- Primary Iron 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) Type 2 diabetes mellitus without complication, without long-term current use of insulin ([facility]) Primary hypertension (CMS/HCC) Unspecified essential hypertension Asthma with COPD (chronic obstructive pulmonary disease) ([facility])- Primary Primary hypertension ([facility]/HCC) Unspecified essential hypertension Type 2 diabetes [...] pulmonary disease) (CMS/HCC) [facility] Diagnosis Iron deficiency anemia due to chronic blood loss- Primary Iron deficiency anemia secondary to blood loss (chronic) Current smoker Other hyperlipidemia (CMS/HCC) Moderate persistent asthma without complication (CMS/HCC) Type 2 diabetes mellitus without complication, without long-term current use of insulin ([facility]/HCC) Screening mammogram, encounter for Recurrent major [...] without complications (CMS/HCC) [facility] Diagnosis Iron deficiency anemia due to chronic blood loss- Primary Iron deficiency anemia secondary to blood loss (chronic) Current smoker Other hyperlipidemia (CMS/HCC) Moderate persistent asthma without complication (CMS/HCC) Type 2 diabetes mellitus without complication, without long-term current use of insulin ([facility]/HCC) Screening mammogram, encounter for Recurrent major depressive disorder, in full remission ([facility]/HCC) Asthma with COPD (chronic obstructive pulmonary [...] Tobacco dependency Tobacco use disorder Hyperlipidemia, unspecified (CMS/HCC) documented in this encounter [facility] HealthcareEvaluation note* Diagnosis Iron deficiency anemia due to chronic blood loss- Primary Iron deficiency anemia secondary to blood loss (chronic) Current smoker Other hyperlipidemia (CMS/HCC) Moderate persistent asthma without complication ([facility]/HCC) Type 2 diabetes mellitus without complication, without long-term current use of insulin ([facility]/HCC) Screening mammogram, encounter for Recurrent major depressive disorder, in full remission ([facility]) Asthma with COPD (chronic obstructive pulmonary disease) ([facility]/HCC)- Primary Iron 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) Type 2 diabetes mellitus without complication, without long-term current use of insulin ([facility]/HCC) Primary hypertension (CMS/HCC) Unspecified essential hypertension [...] complication, without long-term current use of insulin ([facility]/HCC) Vitamin D deficiency Dermoid cyst of right ear Tobacco dependency Tobacco use disorder Other bursitis of elbow, left elbow documented in this encounter [facility] HealthcareEvaluation note* Diagnosis Iron deficiency anemia due to chronic blood loss- Primary Iron deficiency anemia secondary to blood loss (chronic) Current smoker Other hyperlipidemia ([facility]/HCC) Moderate persistent asthma without complication ([facility]) Type 2 diabetes mellitus without complication, without long-term current use of insulin ([facility]) Screening mammogram, encounter for Recurrent major depressive disorder, in full remission ([facility]) Asthma with COPD (chronic obstructive pulmonary disease) ([facility])- Primary Iron 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) Type 2 diabetes mellitus without complication, without long-term current use of insulin ([facility]) Primary hypertension ([facility]) Unspecified essential hypertension Asthma with COPD (chronic obstructive pulmonary disease) ([facility])- Primary Primary hypertension ([facility]) Unspecified essential hypertension Type 2 diabetes mellitus without complication, without long-term current use of insulin ([facility]) Primary hypertension ([facility])- Primary Unspecified essential hypertension Asthma with COPD (chronic obstructive pulmonary disease) ([facility]) Iron 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) Other hyperlipidemia ([facility]) Type 2 diabetes mellitus without complication, without long-term current use of insulin ([facility]) Vitamin D deficiency Dermoid cyst of right ear Tobacco dependency Tobacco use disorder Primary hypertension ([facility])- Primary Unspecified essential hypertension Type 2 diabetes mellitus without complication, without long-term current use of insulin ([facility]) Other hyperlipidemia ([facility]) Asthma with COPD (chronic obstructive pulmonary disease) ([facility]) Non-recurrent acute serous otitis media of left ear documented in this encounter [facility] HealthcareEvaluation note* Diagnosis Other bursitis of elbow, left elbow documented [facility] Healthcare[facility]* Diagnosis Iron deficiency anemia due to chronic blood loss- Primary Iron deficiency anemia secondary to blood loss (chronic) Current smoker Other hyperlipidemia ([facility]/HCC) Moderate persistent asthma without complication ([facility]) Type 2 diabetes mellitus without complication, without long-term current use of insulin ([facility]) Screening mammogram, encounter for Recurrent major depressive disorder, in full remission ([facility]) Asthma with COPD (chronic obstructive pulmonary disease) ([facility])- Primary Iron 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) Type 2 diabetes mellitus without complication, without long-term current use of insulin ([facility]/HCC) Primary hypertension ([facility]/HCC) Unspecified essential hypertension Asthma with COPD (chronic obstructive pulmonary disease) ([facility])- Primary Primary hypertension ([facility]/HCC) Unspecified essential hypertension Type 2 diabetes mellitus without complication, without long-term current use of insulin ([facility]/HCC) Primary hypertension ([facility]/HCC)- Primary Unspecified essential hypertension Asthma with COPD (chronic obstructive pulmonary disease) ([facility]) Iron 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) Other hyperlipidemia ([facility]) Type 2 diabetes mellitus without complication, without long-term current use of insulin ([facility]) Vitamin D deficiency Dermoid cyst of right ear Tobacco dependency Tobacco use disorder Primary hypertension ([facility])- Primary Unspecified essential hypertension Type 2 diabetes mellitus without complication, without long-term current use of insulin ([facility]) Other hyperlipidemia ([facility]) Asthma with COPD (chronic obstructive pulmonary disease) ([facility]) Non-recurrent acute serous otitis media of left ear Gastro-esophageal reflux disease without esophagitis documented in this [facility]* Diagnosis Iron deficiency anemia due to chronic blood loss- Primary Iron deficiency anemia secondary to blood loss (chronic) Current smoker Other hyperlipidemia ([facility]) Moderate persistent asthma without complication ([facility]) Type 2 diabetes mellitus without complication, without long-term current use of insulin ([facility]) Screening mammogram, encounter for Recurrent major depressive disorder, in full remission ([facility]) Asthma with COPD (chronic obstructive pulmonary disease) ([facility])- Primary Iron 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) Type 2 diabetes mellitus without complication, without long-term current use of insulin ([facility]/HCC) Primary hypertension ([facility]) Unspecified essential hypertension Asthma with COPD (chronic obstructive pulmonary disease) ([facility])- Primary Primary hypertension ([facility]) Unspecified essential hypertension Type 2 diabetes mellitus without complication, without long-term current use of insulin ([facility]/HCC) Primary hypertension ([facility]/HCC)- Primary Unspecified essential hypertension Asthma with COPD (chronic obstructive pulmonary disease) ([facility]) Iron 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) Other hyperlipidemia ([facility]) Type 2 diabetes mellitus without complication, without long-term current use of insulin ([facility]/HCC) Vitamin D deficiency Dermoid cyst of right ear Tobacco dependency Tobacco use disorder Primary hypertension (CMS/HCC)- Primary Unspecified essential hypertension Type 2 diabetes mellitus without complication, without long-term current use of insulin (CMS/HCC) Other hyperlipidemia (CMS/HCC) Asthma with COPD (chronic obstructive pulmonary disease) (CMS/HCC) Non-recurrent acute serous otitis media of left ear Depression, unspecified (CMS/HCC) documented in this encounter [facility] [...] Diagnosis Type 2 diabetes mellitus without complications ([facility]/HCC) Hyperlipidemia, unspecified (CMS/HCC) documented in this encounter [facility]* Diagnosis Hyperlipidemia, unspecified (CMS/HCC) Other bursitis of elbow, left elbow Depression, unspecified ([facility]/HCC) Type 2 diabetes mellitus without complications ([facility]/HCC) documented in this encounter [facility]* Diagnosis Iron deficiency anemia due to chronic blood loss- Primary Iron deficiency anemia secondary to blood loss (chronic) Current smoker Other hyperlipidemia (CMS/HCC) Moderate persistent asthma without complication ([facility]/HCC) Type 2 diabetes mellitus without complication, without long-term current use of insulin ([facility]) Screening mammogram, encounter for Recurrent major depressive disorder, in full remission ([facility]) Asthma with COPD (chronic obstructive pulmonary disease) ([facility]/HCC)- Primary Iron deficiency anemia due to [...] Asthma with COPD (chronic obstructive pulmonary disease) ([facility]/HCC) Non-recurrent acute serous otitis media of left ear Iron 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) documented in this encounter [facility] HealthcareEvaluation note* Diagnosis Iron deficiency anemia due to chronic blood loss- Primary Iron deficiency anemia secondary to blood loss (chronic) Current smoker Other hyperlipidemia (CMS/HCC) Moderate persistent asthma without complication ([facility]/HCC) Type 2 diabetes mellitus without complication, without long-term current use of insulin ([facility]) Screening mammogram, encounter for Recurrent major depressive disorder, in full remission ([facility]) Asthma with COPD (chronic obstructive pulmonary disease) ([facility])- Primary Iron deficiency anemia due to [...] Asthma with COPD (chronic obstructive pulmonary disease) ([facility]) Iron 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) Other hyperlipidemia (CMS/HCC) Type 2 diabetes mellitus without complication, without long-term current use of insulin ([facility]/HCC) Vitamin D deficiency Dermoid cyst of right ear Tobacco dependency Tobacco use disorder Primary hypertension (CMS/HCC)- Primary Unspecified essential hypertension Type 2 diabetes mellitus without complication, without long-term current use of insulin (CMS/HCC) Other hyperlipidemia (CMS/HCC) Asthma with COPD (chronic obstructive pulmonary disease) ([facility]/HCC) Non-recurrent acute serous otitis media of left ear Asthma with COPD (chronic obstructive pulmonary disease) ([facility]/HCC) [facility]* Diagnosis Iron deficiency anemia due to chronic blood loss- Primary Iron deficiency anemia secondary to blood loss (chronic) Current smoker Other hyperlipidemia ([facility]) Moderate persistent asthma without complication ([facility]) Type 2 diabetes mellitus without complication, without long-term current use of insulin ([facility]) Screening mammogram, encounter for Recurrent major depressive disorder, in full remission ([facility]) Asthma with COPD (chronic obstructive pulmonary disease) ([facility])- Primary Iron 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) Type 2 diabetes mellitus without complication, without long-term current use of insulin ([facility]) Primary hypertension ([facility]) Unspecified essential hypertension Asthma with COPD (chronic obstructive pulmonary disease) [place] Primary hypertension [place] Unspecified essential hypertension Type 2 diabetes mellitus without complication, without long-term current use of insulin ([facility]) Primary hypertension ([facility])- Primary Unspecified essential hypertension Asthma with COPD (chronic obstructive pulmonary disease) ([facility]) Iron 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) Other hyperlipidemia ([facility]) Type 2 diabetes mellitus without complication, without long-term current use of insulin ([facility]) Vitamin D deficiency Dermoid cyst of right ear Tobacco dependency Tobacco use disorder Primary hypertension ([facility])- Primary Unspecified essential hypertension Type 2 diabetes mellitus without complication, without long-term current use of insulin ([facility]) Other hyperlipidemia ([facility]) Asthma with COPD (chronic obstructive pulmonary disease) ([facility]) Non-recurrent acute serous otitis media of left ear Iron 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) documented [facility]* Diagnosis Acute hypoxic respiratory failure ([facility])- Primary Chronic obstructive pulmonary disease, unspecified COPD type ([facility]) Influenza A Influenza with other respiratory manifestations Aspiration pneumonia, unspecified aspiration pneumonia type, unspecified laterality, unspecified part of lung ([facility]) Depression, unspecified depression type Cigarette smoker Tobacco use disorder Type 2 diabetes mellitus without complication, without long-term current use of insulin ([facility]) Anxiety Anxiety state, unspecified documented in this encounter [facility] System[facility]* Diagnosis Acute hypoxic respiratory failure ([facility])- Primary Chronic obstructive pulmonary disease, unspecified COPD type ([facility]) Influenza A Influenza with other respiratory manifestations Other abnormalities of gait and mobility documented in this encounter [facility]* Diagnosis Acute hypoxic respiratory failure ([facility])- Primary Aspiration pneumonia, unspecified aspiration pneumonia type, unspecified laterality, unspecified part of lung ([facility]) Chronic obstructive pulmonary disease, unspecified COPD type ([facility]) Influenza A Influenza with other respiratory manifestations Type 2 diabetes mellitus without complication, without long-term current use of insulin ([facility]) Other abnormalities of gait and mobility Anxiety Anxiety state, unspecified documented [facility] this encounter [facility]* Diagnosis Chronic obstructive pulmonary disease, unspecified COPD type ([facility])- Primary Influenza A Influenza with other respiratory manifestations Other abnormalities of gait and mobility Anxiety Anxiety state, unspecified Cigarette smoker Tobacco use disorder documented in this encounter [facility]* Diagnosis Iron deficiency anemia due to chronic blood loss- Primary Iron deficiency anemia secondary to blood loss (chronic) Current smoker Other hyperlipidemia [place] Moderate persistent asthma without complication [place] Type 2 diabetes mellitus without complication, without long-term current use of insulin [place] Screening mammogram, encounter for Recurrent major depressive disorder, in full remission [place] Asthma with COPD (chronic obstructive pulmonary disease) [place] Primary Iron 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) Type 2 diabetes mellitus without complication, without long-term current use of insulin [place] Primary hypertension [place] Unspecified essential hypertension Asthma with COPD (chronic obstructive pulmonary disease) [place] Primary Primary hypertension [place] Unspecified essential hypertension Type 2 diabetes mellitus without complication, without long-term current use of insulin [place] Primary hypertension [place] Primary Unspecified essential hypertension Asthma with COPD (chronic obstructive pulmonary disease) [place] Iron 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) Other hyperlipidemia ([facility]) Type 2 diabetes mellitus without complication, without long-term current use of insulin [place] Vitamin D deficiency Dermoid cyst of right ear Tobacco dependency Tobacco use disorder Primary hypertension ([facility] Primary Unspecified essential hypertension Type 2 diabetes mellitus without complication, without long-term current use of insulin [place] Other hyperlipidemia (CMS/HCC) Asthma with COPD (chronic obstructive pulmonary disease) (CMS/HCC) Non-recurrent acute serous otitis media of left ear Influenza A- Primary Influenza with other respiratory manifestations Chronic obstructive pulmonary disease, unspecified COPD type (CMS/HCC) Acute hypoxic respiratory failure (CMS/HCC) Type 2 diabetes mellitus without complication, without long-term current use of insulin (CMS/HCC) Primary hypertension (CMS/HCC) Unspecified essential hypertension Benign neoplasm of cranial nerves (CMS/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 ([facility]) [facility]* Diagnosis Iron deficiency anemia due to chronic blood loss- Primary Iron deficiency anemia secondary to blood loss (chronic) Current smoker Other hyperlipidemia (CMS/HCC) Moderate persistent asthma without complication ([facility]/HCC) Type 2 diabetes mellitus without complication, without long-term current use of insulin ([facility]) Screening mammogram, encounter for Recurrent major depressive disorder, in full remission ([facility]) Asthma with COPD (chronic obstructive pulmonary disease) ([facility])- Primary Iron 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) Type 2 diabetes mellitus without complication, without long-term current use of insulin (CMS/HCC) Primary hypertension (CMS/HCC) Unspecified essential hypertension Asthma with COPD (chronic obstructive pulmonary disease) (CMS/HCC)- Primary Primary hypertension ([facility]/HCC) Unspecified essential hypertension Type 2 diabetes mellitus without complication, without long-term current use of insulin (CMS/HCC) Primary hypertension (CMS/HCC)- Primary Unspecified essential hypertension Asthma with COPD (chronic obstructive pulmonary disease) ([facility]) Iron deficiency anemia due to chronic [...] COPD type (CMS/HCC) Acute hypoxic respiratory failure ([facility]/HCC) Type 2 diabetes mellitus without complication, without long-term current use of insulin (CMS/HCC) Primary hypertension (CMS/HCC) Unspecified essential hypertension Benign neoplasm of cranial nerves ([facility]/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 (CMS/HCC) Scalp laceration, sequela- Primary Cigarette nicotine dependence without complication COPD exacerbation (CMS/HCC) Obstructive chronic bronchitis with exacerbation documented in this encounter [facility] HealthcareEvaluation [facility]* Diagnosis Iron deficiency anemia due to chronic blood loss- Primary Iron deficiency anemia secondary to blood loss (chronic) Current smoker Other hyperlipidemia (CMS/HCC) Moderate persistent asthma without complication ([facility]/HCC) Type 2 diabetes mellitus without complication, without long-term current use of insulin ([facility]) Screening mammogram, encounter for Recurrent major depressive disorder, in full remission ([facility]) Asthma with COPD (chronic obstructive pulmonary disease) ([facility])- Primary Iron 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) Type 2 diabetes mellitus without complication, without long-term current use of insulin ([facility]) Primary hypertension ([facility]/HCC) Unspecified essential hypertension Asthma with COPD (chronic obstructive pulmonary disease) ([facility])- Primary Primary hypertension ([facility]/HCC) Unspecified essential hypertension Type 2 diabetes mellitus without complication, without long-term current use of insulin ([facility]/HCC) Primary hypertension ([facility]/HCC)- Primary Unspecified essential hypertension Asthma with COPD (chronic obstructive pulmonary disease) ([facility]) Iron 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) Other hyperlipidemia ([facility]) Type 2 diabetes mellitus without complication, without long-term current use of insulin ([facility]) Vitamin D deficiency Dermoid cyst of right ear Tobacco dependency Tobacco use disorder Primary hypertension ([facility]/HCC)- Primary Unspecified essential hypertension Type 2 diabetes mellitus without complication, without long-term current use of insulin ([facility]/HCC) Other hyperlipidemia ([facility]/HCC) Asthma with COPD (chronic obstructive pulmonary disease) ([facility]) Non-recurrent acute serous otitis media of left ear Influenza A- Primary Influenza with other respiratory manifestations Chronic obstructive pulmonary disease, unspecified COPD type ([facility]) Acute hypoxic respiratory failure ([facility]) Type 2 diabetes mellitus without complication, without long-term current use of insulin ([facility]/HCC) Primary hypertension ([facility]/HCC) Unspecified essential hypertension Benign neoplasm of cranial nerves ([facility]/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 ([facility]/HCC) Scalp laceration, sequela- Primary Cigarette nicotine dependence without complication COPD exacerbation ([facility]) Obstructive chronic bronchitis with exacerbation Type 2 diabetes mellitus without complication, without long-term current use of insulin ([facility])- Primary Chronic obstructive pulmonary disease, unspecified COPD type ([facility]/HCC) Primary hypertension ([facility]) Unspecified essential hypertension Vitamin D deficiency Iron 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) Cigarette nicotine dependence without complication Recurrent major depressive disorder, in full remission ([facility]) Generalized anxiety disorder ([facility]) Generalized anxiety disorder Screening mammogram, encounter for Other hyperlipidemia ([facility] Acute hypoxic respiratory failure ([facility]) documented in this encounter [facility] HealthcareEvaluation note* Diagnosis Iron deficiency anemia due to chronic blood loss- Primary Iron deficiency anemia secondary to blood loss (chronic) Current smoker Other hyperlipidemia Moderate persistent asthma without complication ([facility]) Type 2 diabetes mellitus without complication, without long-term current use of insulin Screening mammogram, encounter for Recurrent major depressive disorder, in full remission ([facility]) Asthma with COPD (chronic obstructive pulmonary disease) ([facility])- Primary Iron 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) Type 2 diabetes mellitus without complication, without long-term current use of insulin Primary hypertension ([facility]) Unspecified essential hypertension Asthma with COPD (chronic obstructive pulmonary disease) ([facility])- Primary Primary hypertension ([facility]) Unspecified essential hypertension Type 2 diabetes mellitus without complication, without long-term current use of insulin Primary hypertension ([facility])- Primary Unspecified essential hypertension Asthma with COPD (chronic obstructive pulmonary disease) ([facility]) Iron 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) Other hyperlipidemia Type 2 diabetes mellitus without complication, without long-term current use of insulin Vitamin D deficiency Dermoid cyst of right ear Tobacco dependency Tobacco use disorder Primary hypertension ([facility]/HCC)- Primary Unspecified essential hypertension Type 2 diabetes mellitus without complication, without long-term current use of insulin Other hyperlipidemia Asthma with COPD (chronic obstructive pulmonary disease) ([facility]) Non-recurrent acute serous otitis media of left ear Influenza A- Primary Influenza with other respiratory manifestations Chronic obstructive pulmonary disease, unspecified COPD type ([facility]/HCC) Acute hypoxic respiratory failure ([facility]/HCC) Type 2 diabetes mellitus without complication, without long-term current use of insulin Primary hypertension ([facility]) Unspecified essential hypertension Benign neoplasm of cranial nerves ([facility]/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 ([facility]) Scalp laceration, sequela- Primary Cigarette nicotine dependence without complication COPD exacerbation ([facility]) Obstructive chronic bronchitis with exacerbation Type 2 diabetes mellitus without complication, without long-term current use of insulin- Primary Chronic obstructive pulmonary disease, unspecified COPD type ([facility]/HCC) Primary hypertension ([facility]) Unspecified essential hypertension Vitamin D deficiency Iron 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) Cigarette nicotine dependence without complication Recurrent major depressive disorder, in full remission ([facility]) Generalized anxiety disorder ([facility]) Generalized anxiety disorder Screening mammogram, encounter for Other hyperlipidemia Acute hypoxic respiratory failure ([facility]) Elevated TSH Other abnormal blood chemistry documented in this encounter [facility] HealthcareEvaluation note* Diagnosis Iron deficiency anemia due to chronic blood loss- Primary Iron deficiency anemia secondary to blood loss (chronic) Current smoker Other hyperlipidemia Moderate persistent asthma without complication ([facility]) Type 2 diabetes mellitus without complication, without long-term current use of insulin Screening mammogram, encounter for Recurrent major depressive disorder, in full remission ([facility]) Asthma with COPD (chronic obstructive pulmonary disease) ([facility])- Primary Iron 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) Type 2 diabetes mellitus without complication, without long-term current use of insulin Primary hypertension ([facility]) Unspecified essential hypertension Asthma with COPD (chronic obstructive pulmonary disease) ([facility])- Primary Primary hypertension ([facility]) Unspecified essential hypertension Type 2 diabetes mellitus without complication, without long-term current use of insulin Primary hypertension ([facility])- Primary Unspecified essential hypertension Asthma with COPD (chronic obstructive pulmonary disease) ([facility]) Iron 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) Other hyperlipidemia Type 2 diabetes mellitus without complication, without long-term current use of insulin Vitamin D deficiency Dermoid cyst of right ear Tobacco dependency Tobacco use disorder Primary hypertension ([facility])- Primary Unspecified essential hypertension Type 2 diabetes mellitus without complication, without long-term current use of insulin Other hyperlipidemia Asthma with COPD (chronic obstructive pulmonary disease) ([facility]/HCC) Non-recurrent acute serous otitis media of left ear Influenza A- Primary Influenza with other respiratory manifestations Chronic obstructive pulmonary disease, unspecified COPD type ([facility]/HCC) Acute hypoxic respiratory failure ([facility]) Type 2 diabetes mellitus without complication, without long-term current use of insulin Primary hypertension ([facility]) Unspecified essential hypertension Benign neoplasm of cranial nerves ([facility]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 ([facility]) Scalp laceration, sequela- Primary Cigarette nicotine dependence without complication COPD exacerbation ([facility]) Obstructive chronic bronchitis with exacerbation Type 2 diabetes mellitus without complication, without long-term current use of insulin- Primary Chronic obstructive pulmonary disease, unspecified COPD type ([facility]) Primary hypertension ([facility]) Unspecified essential hypertension Vitamin D deficiency Iron 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) Cigarette nicotine dependence without complication Recurrent major depressive disorder, in full remission ([facility]) Generalized anxiety disorder ([facility]) Generalized anxiety disorder Screening mammogram, encounter for Other hyperlipidemia Acute hypoxic respiratory failure ([facility]) Iron 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) documented [facility]Evaluation [facility]* Diagnosis Iron deficiency anemia due to chronic blood loss- Primary Iron deficiency anemia secondary to blood loss (chronic) Current smoker Other hyperlipidemia Moderate persistent asthma without complication ([facility]) Type 2 diabetes mellitus without complication, without long-term current use of insulin Screening mammogram, encounter for Recurrent major depressive disorder, in full remission ([facility]) Asthma with COPD (chronic obstructive pulmonary disease) ([facility])- Primary Iron 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) Type 2 diabetes mellitus without complication, without long-term current use of insulin Primary hypertension ([facility]) Unspecified essential hypertension Asthma with COPD (chronic obstructive pulmonary disease) ([facility])- Primary Primary hypertension ([facility]) Unspecified essential hypertension Type 2 diabetes mellitus without complication, without long-term current use of insulin Primary hypertension ([facility])- Primary Unspecified essential hypertension Asthma with COPD (chronic obstructive pulmonary disease) ([facility]) Iron 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) Other hyperlipidemia Type 2 diabetes mellitus without complication, without long-term current use of insulin Vitamin D deficiency Dermoid cyst of right ear Tobacco dependency Tobacco use disorder Primary hypertension ([facility]/HCC)- Primary Unspecified essential hypertension Type 2 diabetes mellitus without complication, without long-term current use of insulin Other hyperlipidemia Asthma with COPD (chronic obstructive pulmonary disease) ([facility]/HCC) Non-recurrent acute serous otitis media of left ear Influenza A- Primary Influenza with other respiratory manifestations Chronic obstructive pulmonary disease, unspecified COPD type ([facility]) Acute hypoxic respiratory failure ([facility]) Type 2 diabetes mellitus without complication, without long-term current use of insulin Primary hypertension ([facility]) Unspecified essential hypertension Benign neoplasm of cranial nerves ([facility]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 ([facility]) Scalp laceration, sequela- Primary Cigarette nicotine dependence without complication COPD exacerbation ([facility]) Obstructive chronic bronchitis with exacerbation Type 2 diabetes mellitus without complication, without long-term current use of insulin- Primary Chronic obstructive pulmonary disease, unspecified COPD type ([facility]) Primary hypertension ([facility]) Unspecified essential hypertension Vitamin D deficiency Iron 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) Cigarette nicotine dependence without complication Recurrent major depressive disorder, in full remission ([facility]) Generalized anxiety disorder ([facility]) Generalized anxiety disorder Screening mammogram, encounter for Other hyperlipidemia Acute hypoxic respiratory failure ([facility]) Asthma with COPD (chronic obstructive pulmonary disease) ([facility]) Chronic obstructive pulmonary disease, unspecified COPD type ([facility]) documented [facility] HealthcareEvaluation [facility]* Diagnosis Iron deficiency anemia due to chronic blood loss- Primary Iron deficiency anemia secondary to blood loss (chronic) Current smoker Other hyperlipidemia Moderate persistent asthma without complication ([facility]) Type 2 diabetes mellitus without complication, without long-term current use of insulin Screening mammogram, encounter for Recurrent major depressive disorder, in full remission ([facility]) Asthma with COPD (chronic obstructive pulmonary disease) ([facility])- Primary Iron 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) Type 2 diabetes mellitus without complication, without long-term current use of insulin Primary hypertension ([facility]) Unspecified essential hypertension Asthma with COPD (chronic obstructive pulmonary disease) ([facility])- Primary Primary hypertension ([facility]) Unspecified essential hypertension Type 2 diabetes mellitus without complication, without long-term current use of insulin Primary hypertension ([facility]/HCC)- Primary Unspecified essential hypertension Asthma with COPD (chronic obstructive pulmonary disease) ([facility]/HCC) Iron 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) Other hyperlipidemia Type 2 diabetes mellitus without complication, without long-term current use of insulin Vitamin D deficiency Dermoid cyst of right ear Tobacco dependency Tobacco use disorder Primary hypertension ([facility]/HCC)- Primary Unspecified essential hypertension Type 2 diabetes mellitus without complication, without long-term current use of insulin Other hyperlipidemia Asthma with COPD (chronic obstructive pulmonary disease) ([facility]/HCC) Non-recurrent acute serous otitis media of left ear Influenza A- Primary Influenza with other respiratory manifestations Chronic obstructive pulmonary disease, unspecified COPD type ([facility]) Acute hypoxic respiratory failure ([facility]) Type 2 diabetes mellitus without complication, without long-term current use of insulin Primary hypertension ([facility]/HCC) Unspecified essential hypertension Benign neoplasm of cranial nerves ([facility]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 ([facility]) Scalp laceration, sequela- Primary Cigarette nicotine dependence without complication COPD exacerbation ([facility]) Obstructive chronic bronchitis with exacerbation Type 2 diabetes mellitus without complication, without long-term current use of insulin- Primary Chronic obstructive pulmonary disease, unspecified COPD type ([facility]/HCC) Primary hypertension ([facility]) Unspecified essential hypertension Vitamin D deficiency Iron 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) Cigarette nicotine dependence without complication Recurrent major depressive disorder, in full remission ([facility]) Generalized anxiety disorder ([facility]) Generalized anxiety disorder Screening mammogram, encounter for Other hyperlipidemia Acute hypoxic respiratory failure ([facility]) Acquired hypothyroidism ([facility])- Primary Unspecified hypothyroidism [facility]* Diagnosis Iron deficiency anemia due to chronic blood loss- Primary Iron deficiency anemia secondary to blood loss (chronic) Current smoker Other hyperlipidemia Moderate persistent asthma without complication ([facility]/HCC) Type 2 diabetes mellitus without complication, without long-term current use of insulin Screening mammogram, encounter for Recurrent major depressive disorder, in full remission ([facility]) Asthma with COPD (chronic obstructive pulmonary disease) ([facility])- Primary Iron deficiency anemia due to [...] long-term current use of insulin Primary hypertension (CMS/HCC)- Primary Unspecified essential hypertension [...] Asthma with COPD (chronic obstructive pulmonary disease) ([facility]/HCC) Non-recurrent acute serous otitis media of left ear Influenza A- Primary Influenza with other respiratory manifestations Chronic obstructive pulmonary disease, unspecified COPD type ([facility]) Acute hypoxic respiratory failure ([facility]) Type 2 diabetes mellitus without complication, without long-term current use of insulin Primary hypertension ([facility]/HCC) Unspecified essential hypertension Benign neoplasm of cranial nerves ([facility]/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 ([facility]) Scalp laceration, sequela- Primary Cigarette nicotine dependence without complication COPD exacerbation ([facility]) Obstructive chronic bronchitis with exacerbation Type 2 diabetes mellitus without complication, without long-term current use of insulin- Primary Chronic obstructive pulmonary disease, unspecified COPD type (CMS/HCC) Primary hypertension ([facility]/HCC) Unspecified essential hypertension Vitamin D deficiency Iron 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) Cigarette nicotine dependence without complication Recurrent major depressive disorder, in full remission (CMS/HCC) Generalized anxiety disorder ([facility]/HCC) Generalized anxiety disorder Screening mammogram, encounter for Other hyperlipidemia Acute hypoxic respiratory failure ([facility]/HCC) Depression, unspecified ([facility]/HCC) [facility]* Diagnosis Iron deficiency anemia due to chronic blood loss- Primary Iron deficiency anemia secondary to blood loss (chronic) Current smoker Other hyperlipidemia Moderate persistent asthma without complication (CMS/HCC) Type 2 diabetes mellitus without complication, without long-term current use of insulin Screening mammogram, encounter for Recurrent major depressive disorder, in full remission (CMS/HCC) Asthma with COPD (chronic obstructive pulmonary disease) ([facility])- Primary Iron 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) Type 2 diabetes mellitus without complication, without long-term current use of insulin Primary hypertension ([facility]) Unspecified essential hypertension Asthma with COPD (chronic obstructive pulmonary disease) ([facility])- Primary Primary hypertension ([facility]) Unspecified essential hypertension Type 2 diabetes mellitus without complication, without long-term current use of insulin Primary hypertension ([facility])- Primary Unspecified essential hypertension Asthma with COPD (chronic obstructive pulmonary disease) ([facility]) Iron 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) Other hyperlipidemia Type 2 diabetes mellitus without complication, without long-term current use of insulin Vitamin D deficiency Dermoid cyst of right ear Tobacco dependency Tobacco use disorder Primary hypertension ([facility])- Primary Unspecified essential hypertension Type 2 diabetes mellitus without complication, without long-term current use of insulin Other hyperlipidemia Asthma with COPD (chronic obstructive pulmonary disease) ([facility]) Non-recurrent acute serous otitis media of left ear Influenza A- Primary Influenza with other respiratory manifestations Chronic obstructive pulmonary disease, unspecified COPD type ([facility]) Acute hypoxic respiratory failure ([facility]) Type 2 diabetes mellitus without complication, without long-term current use of insulin Primary hypertension ([facility]) Unspecified essential hypertension Benign neoplasm of cranial nerves ([facility]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 ([facility]) Scalp laceration, sequela- Primary Cigarette nicotine dependence without complication COPD exacerbation ([facility]) Obstructive chronic bronchitis with exacerbation Type 2 diabetes mellitus without complication, without long-term current use of insulin- Primary Chronic obstructive pulmonary disease, unspecified COPD type ([facility]/HCC) Primary hypertension ([facility]) Unspecified essential hypertension Vitamin D deficiency Iron 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) Cigarette nicotine dependence without complication Recurrent major depressive disorder, in full remission ([facility]) Generalized anxiety disorder ([facility]) Generalized anxiety disorder Screening mammogram, encounter for Other hyperlipidemia Acute hypoxic respiratory failure ([facility]) Osteoarthritis, unspecified osteoarthritis type, unspecified site- Primary documented in this encounter [facility] HealthcareEvaluation note* Diagnosis Iron deficiency anemia [...] pulmonary disease) (HCC) documented in this encounter [facility] HealthcareEvaluation note* Diagnosis Iron deficiency anemia [...] esophagitis Depression, unspecified [facility]* Diagnosis Iron deficiency anemia [...] COPD type (HCC) [facility]* Diagnosis Iron deficiency anemia [...] abnormal blood chemistry documented in this encounter [facility] HealthcareEvaluation note* Diagnosis Iron deficiency anemia [...] left lower extremity documented in this encounter [facility]* Diagnosis Onset Date Resolution Status Admit Date Edema of both lower extremities acute July 31, 2025 10:36am Elevated TSH acute July 312024 10:36am Generalized anxiety disorder acute July 31, 2025 10:36am Iron deficiency anemia due t o chronic blood loss acute July 10:36am Recurrent major depressive disorder, in full remission acute Jul 10:36am [facility] Work Phone: Hospital Discharge instructions No data available for this section [facility] instructions[facility]ulatory Orders* Referral to Wound Care Time Frame: 08/22/25, Location: None [facility] Work Phone: InstructionsNot on filedocumented in this encounter [facility] filedocumented in this [facility]Not on filedocumented in this encounter [facility] No data available for this section [facility] HospitalReason for referral (narrative)* Consultation (Routine) - Pending Review Specialty Diagnoses / Procedures Referred By Marilia underwood Referred To Contact Gastroenterology Diagnoses Iron deficiency anemia due to chronic blood loss Procedures WI OFFICE/OUTPATIENT NEW HIGH MDM 60 MINUTES Daniel Cardoso NP [address] [place] [phone] Referral ID Status Reason Start Date Expiration Date Visits Requested Visits Authorized [id number] Pending Review Specialty Services Required 07/07/2024 01/03/2025 1 [facility]ative[facility]No reason for referral [facility] Work Phone: Summary Purpose Family History Relationship Condition Age at Onset Recorded Date/T hiram father Heart disease Unknown brother Diabetes mellitus Unknown Heart disease Unknown Advance Directives Advance Directive Response Recorded Date/ Time Advance Directives No June 25, 2024 7:07am Advance Directive Response Recorded Date/ Time Advance Directives No June 25, 2024 8:07am Chief Complaint and Reason for Visit Chief [...] +, Exacerbation COPD December 13, 2024 12:54pm [facility] 12/09January 04, 2025 8:55am Reason for Visit Admit Date Acute hypoxic respiratory failure Novua2024 9:05pm COPD exacerbation December 09, 2024 9 [...] 9:05pm Hypotension December 09, 2024 9 :05pm Chief Complaint Admit Date Established Patient July 31, 2025 10:36am Reason for Visit Admit Date Edema of both lower extremities Septembe r 2024 10:36am Elevated TSH July 31, 2025 10:36am Generalized anxiety disorder July 152024 10:36am Iron deficiency anemia due to chronic bl ood loss July 31, 2025 10:36am Recurrent major depressive disorder, in full remission July 31, 2025 10:36am Chief Complaint Admit Date Established Patient July 31, 2025 10:36am 3W August 22, 2025 8: 52am Reason for Visit Admit Date Edema of both lower extremities Getembe r 2024 10:36am Elevated TSH July 31, 2025 10:36am Generalized anxiety disorder July 152024 10:36am Iron deficiency anemia due to chronic bl ood loss July 31, 2025 10:36am Recurrent major depressive disorder, in full remission July 31, 2025 10:36am Edema of both lower extremities August 22, 2025 8:52am Iron deficiency anemia due to chronic bl ood loss August 22, 2025 8:52am Additional Source Comments INFORMATION SOURCE (unrecogn ized section and content) DATE CREATED AUTHOR 10/22/2018 [employer] DATE CREATED AUTHOR AUTHOR'S ORGANIZ ATION 01/09/2023 [facility] [place] [facility] DATE CREATED AUTHOR AUTHOR'S ORGANIZ ATION 12/17/2023 [facility] DATE CREATED AUTHOR AUTHOR'S ORGANIZ ATION 12/17/2024 [facility] DATE CREATED AUTHOR AUTHOR'S ORGANIZ ATION 06/28/2025 [facility] Specialists [facility] DATE CREATED AUTHOR AUTHOR'S ORGANIZ ATION 07/20/2025 [facility] y[facility] Patient Care team informatio n (unrecognized section and content) Credit Card Control Clerk Relationship Specialty Start Date End Date Shaikh Sánchez MD [address] [place] [address] PCP - Linda MORALES 11/14/23 Shaikh Sánchez MD [address] [place] [address] PCP - General Internal Medicine 01/16/24 Zamzam Wheeler NP [address] [place] [address] Nurse Practitioner Internal Medicine 01/16/24 Kirstin Carroen LPN Licensed Practical Nurse Family Medicine 07/27/24 Credit Card Control Clerk Relationship Specialty Start Date End Date Shaikh Sánchez MD [address] [place] [address] PCP - Linda MORALES 11/14/23 Ian Soares MD [address] [place] [address] PCP - General Family Medicine 09/11/24 Zamzam Wheeler NP [address] [place] [address] Nurse Practitioner Internal Medicine 01/16/24 Kirstin Carreon LPN Licensed Practical Nurse Family Medicine 07/27/24 aDniel Cardoso NP [address] [place] [address] Nurse Practitioner Family Medicine 09/11/24 Credit Card Control Clerk Relationship Specialty Start Date End Date Shaikh Sánchez MD [address] [place] [address] PCP Shayy Mckeon MA 11/14/23 Ian Soares MD [address] [place] [address] PCP - General Family Medicine 09/11/24 Zamzam Wheeler NP [address] [place] [address] Nurse Practitioner Internal Medicine 01/16/24 Kirstin Carreon LPN Licensed Practical Nurse Family Medicine 07/27/24 Daniel Cardoso NP [address] [place] [address] Nurse Practitioner Family Medicine 09/11/24 Credit Card Control Clerk Relationship Specialty Start Date End Date Shaikh Sánchez MD [address] [place] [phone] PCP - [facility] 11/14/23 Ian Soares MD [address] [place] [address] PCP - General Family Medicine 09/11/24 Zamzam Wheeler NP [address] [place] [address] Nurse Practitioner Internal Medicine 01/16/24 Kirstin Carreon LPN Licensed Practical Nurse Family Medicine 07/27/24 Daniel Cardoso NP [address] [place] [address] Nurse Practitioner Family Medicine 09/11/24 Credit Card Control Clerk Relationship Specialty Start Date End Date Shaikh Sánchez MD [address] [place] [address] PCP - Linda MORALES 11/14/23 Ian Soares MD [address] [place] [address] PCP - General Family Medicine 09/11/24 Zamzam Wheeler NP [address] [place] [address] Nurse Practitioner Internal Medicine 01/16/24 Kirstin Carreon LPN Licensed Practical Nurse Family Medicine 07/27/24 Daniel Cardoso NP [address] [place] [address] Nurse Practitioner Family Medicine 09/11/24 Credit Card Control Clerk Relationship Specialty Start Date End Date Shaikh Sánchez MD [address] [place] [phone] PCP - Linda MORALES 11/14/23 Shaikh Sánchez MD [address] [place] [address] PCP - General Internal Medicine 01/16/24 Zamzam Wheeler HEALTH AND WELLNESS INSTRUCTOR [address] [place] [address] Nurse Practitioner Internal Medicine 01/16/24 Gustavo Romero LPN Licensed Practical Nurse Family Medicine 07/04/24 Credit Card Control Clerk Relationship Specialty Start Date End Date Shaikh Sánchez MD [address] [place] [address] PCP - Linda MORALES 11/14/23 Ian Soares MD [address] [place] [address] PCP - General Family Medicine 09/11/24 Zamzam Wheeler NP [address] [place] [address] Nurse Practitioner Internal Medicine 01/16/24 Daniel Cardoso NP [address] [place] [phone] Nurse Practitioner Family Medicine 09/11/24 Arturo Chanel MA Family Medicine 09/24/24 Credit Card Control Clerk Relationship Specialty Start Date End Date Shaikh Sánchez MD [address] [place] [address] PCP - Linda MORALES 11/14/23 Shaikh Sánchez MD [address] [place] [address] PCP - General Internal Medicine 01/16/24 Zamzam Wheeler HEALTH AND WELLNESS INSTRUCTOR [address] [place] [address] Nurse Practitioner Internal Medicine 01/16/24 Gustavo Romero LPN Licensed Practical Nurse Family Medicine 07/04/24 Credit Card Control Clerk Relationship Specialty Start Date End Date Shaikh Sánchez MD [address] [place] [phone] PCP - Linda MORALES 11/14/23 Shaikh Sánchez MD [address] [place] [address] PCP - General Internal Medicine 01/16/24 Zamzam Wheeler HEALTH AND WELLNESS INSTRUCTOR [address] [place] [address] Nurse Practitioner Internal Medicine 01/16/24 Gustavo Romero LPN Licensed Practical Nurse Family Medicine 07/04/24 Credit Card Control Clerk Relationship Specialty Start Date End Date Shaikh Sánchez MD [address] [place] [address] PCP Shayy Mckeon MA 11/14/23 Shaikh Sánchez MD [address] [place] [address] PCP - General Internal Medicine 01/16/24 Zamzam Wheeler HEALTH AND WELLNESS INSTRUCTOR [address] [place] [address] Nurse Practitioner Internal Medicine 01/16/24 Gustavo Romero LPN Licensed Practical Nurse Family Medicine 07/04/24 Credit Card Control Clerk Relationship Specialty Start Date End Date Shaikh Sánchez MD [address] [place] [address] SHIVAM Mckeon MA 11/14/23 Shaikh Sánchez MD [address] [address] PCP - General Internal Medicine 01/16/24 Zamzam Wheeler, GREG [address] [facility] [address] [place], [place] [phone] Nurse Practitioner Internal Medicine 01/16/24 Kirstin Carreon LPN Licensed Practical Nurse Family Medicine 07/27/24 Credit Card Control Clerk Relationship Specialty Start Date End Date Shaikh Sánchez MD [address] [place] [address] PCP - Linda MORALES 11/14/23 Ian Soares MD [address] [place] [address] PCP - General Family Medicine 09/11/24 Zamzam Wheeler NP [address] [place] [address] Nurse Practitioner Internal Medicine 01/16/24 Daniel Cardoso NP [address] [place] [address] Nurse Practitioner Family Medicine 09/11/24 Arturo Chanel MA Family Medicine 09/24/24 Credit Card Control Clerk Relationship Specialty Start Date End Date Shaikh Sánchez MD [address] [place] [address] PCP - Linda MORALES 11/14/23 Ian Soares MD [address] [place] [address] PCP - General Family Medicine 09/11/24 Zamzam Wheeler NP [address] [place] [address] Nurse Practitioner Internal Medicine 01/16/24 Daniel Cardoso NP [address] [place] [address] Nurse Practitioner Family Medicine 09/11/24 Arturo Chanel MA [facility] Medicine 09/24/24 Credit Card Control Clerk Relationship Specialty Start Date End Date Shaikh Sánchez MD [address] [place] [address] PCP - [facility] 11/14/23 Ian Soares MD [address] [place] [address] PCP - General Family Medicine 09/11/24 Zamzam Wheeler NP [address] [place] [address] Nurse Practitioner Internal Medicine 01/16/24 Daniel Cardoso NP [address] [place] [address] Nurse Practitioner Family Medicine 09/11/24 Arturo Chanel [...] Cecilia Ruiz MD Other Provider Active Start: 2024 End: December 14, 2024 Suzette Ng MD Other Provider Active Start: menlo 2024 End: December 14, 2024 Ryan Arshad MD Other Provider Active Start: 2024 End: December 14, 2024 Ilana Mendoza [...] Beasley MD Admit Provider Active Start: 2024 Cecilia Ruiz MD Other Provider Active Start: an2024 Daniel Garza MD [...] Prakash Sena MD Other Provider Active Start: anuary 2024 Gildardo Pastor MD Other Provider Active Start: December 10, 2024 Krissy Cortez MD Other Provider Active Start: December 10, 2024 Daneil Garza MD Other Provider Active Start: Jamey [...] December 13, 2024 Dave Bazan MD Attending Ca ovid, Other Provider Active Start: December 13, 2024 Credit Card Control Clerk Relationship Specialty Start Date End Date Gianna Isabel MD PCP - General Family Medicine 02/07/17 Credit Card Control Clerk Relationship Specialty Start Date End Date Gianna Isabel MD PCP - General Family Medicine 02/07/17 Credit Card Control Clerk Relationship Specialty Start Date End Date Gianna Isabel MD PCP - General Family Medicine 02/07/17 Team Status: Inactive Member Role Status Dates Daniel Cardoso HEALTH AND WELLNESS INSTRUCTOR-C Primary Care Provider Ac tive Start: December 09, 2024 End: December 14, 2024 Soco Beasley MD Admit Provider Active Start: uary 2024 End: December 14, 2024 Daniel Garza MD Attending Provider Active Start : December 09, 2024 End: December 14, 2024 Suzette Ng MD Other Provider Active Start: Jamey lior 2024 End: December 14, 2024 Ryan Arshad MD Other Provider Active Start: Heath anuary 2024 End: December 14, 2024 Ilana Mendoza APRN Other Provider Active St art: December 09, 2024 End: December 14, 2024 Hubert Mcguire Jr DO Other Provider Active S tart: December 09, 2024 End: December 14, 2024 Dave Bazan MD Other Provider Active Start: December 09, 2024 End: December 14, 2024 Cecilia Ruiz MD Other Provider Active Start: J anuary 2024 End: December 14, 2024 Team Status: Active Member Role Status Dates Daniel Cardoso HEALTH AND WELLNESS INSTRUCTOR-C Primary Care Provider Ac tive Start: December [...] January 04, 2025 End: January 04, 2025 Credit Card Control Clerk Relationship Specialty Start Date End Date Ian Soares MD [address] [place] [address] PCP - General Family Medicine 09/11/24 Zamzam Wheeler NP Nurse Practitioner Internal Medicine 01/16/24 Daniel Cardoso NP [address] [place] [address] Nurse Practitioner Family Medicine 09/11/24 Arturo Chanel MA Family Medicine 09/24/24 Credit Card Control Clerk Relationship Specialty Start Date End Date Ian Soares MD [address] [place] [address] PCP - General Family Medicine 09/11/24 Zamzam Wheeler NP Nurse Practitioner Internal Medicine 01/16/24 Daniel Cardoso NP [address] [place] [address] Nurse Practitioner Family Medicine 09/11/24 Arturo Chanel MA [facility] Medicine 09/24/24 Credit Card Control Clerk Relationship Specialty Start Date End Date Shaikh Sánchez MD [address] [place] [address] PCP - [facility] 11/14/23 Ian Soares MD [address] [place] [address] PCP - General Family Medicine 09/11/24 Zamzam Wheeler HEALTH AND WELLNESS INSTRUCTOR [address] [place] [address] Nurse Practitioner Internal Medicine 01/16/24 Daniel Cardoso NP [address] [place] [address] Nurse Practitioner Family Medicine 09/11/24 Arturo Chanel MA Family Medicine 09/24/24 Credit Card Control Clerk Relationship Specialty Start Date End Date Shaikh Sánchez MD [address] [place] [address] PCP - Linda MORALES 11/14/23 Ian Soares MD [address] [place] [address] PCP - General Family Medicine 09/11/24 Zamzam Wheeler HEALTH AND WELLNESS INSTRUCTOR [address] [place] [address] Nurse Practitioner Internal Medicine 01/16/24 Daniel Cardoso NP [address] [place] [address] Nurse Practitioner Family Medicine 09/11/24 Arturo Chanel MA Family Medicine 09/24/24 Credit Card Control Clerk Relationship Specialty Start Date End Date Shaikh Sánchez MD [address] [place] [address] PCP - Linda MORALES 11/14/23 Ian Soares MD [address] [place] [address] PCP - General Family Medicine 09/11/24 Zamzam Wheeler HEALTH AND WELLNESS INSTRUCTOR [address] [place] [address] Nurse Practitioner Internal Medicine 01/16/24 Arturo Chanel MA Family Medicine 09/24/24 La Pack NP [address] [place] [address] Nurse Practitioner Family Medicine 02/06/25 Credit Card Control Clerk Relationship Specialty Start Date End Date Shaikh Sánchez MD [address] [place] [address] PCP - [place] 11/14/23 Ian Soares MD [address] [place] [address] PCP - General Family Medicine 09/11/24 Zamzam Wheeler NP [address] [place] [address] Nurse Practitioner Internal Medicine 01/16/24 Arturo Chanel MA Family Medicine 09/24/24 La Pack NP [address] [place] [address] Nurse Practitioner Family Medicine 02/06/25 Credit Card Control Clerk Relationship Specialty Start Date End Date Shaikh Sánchez MD [address] [place] [address] PCP - [place] 11/14/23 Ian Soares MD [address] [place] [address] PCP - General Family Medicine 09/11/24 Zamzam Wheeler, HEALTH AND WELLNESS INSTRUCTOR [address] [place] [address] Nurse Practitioner Internal Medicine 01/16/24 Arturo Chanel MA Family Medicine 09/24/24 La Pack NP [address] [place] [address] Nurse Practitioner Family Medicine 02/06/25 Credit Card Control Clerk Relationship Specialty Start Date End Date Shaikh Sánchez MD [address] [place] [address] PCP - Linda MORALES 11/14/23 Ian Soares MD [address] [place] [address] PCP - General Family Medicine 09/11/24 Zamzam Wheeler NP [address] [place] [address] Nurse Practitioner Internal Medicine 01/16/24 Arturo Chanel MA Family Medicine 09/24/24 La Pack NP [address] [place] [address] Nurse Practitioner Family Medicine 02/06/25 Credit Card Control Clerk Relationship Specialty Start Date End Date Shaikh Sánchez MD [address] [place] [address] PCP - Linda MORALES 11/14/23 Ian Soares MD [address] [place] [address] PCP - General Family Medicine 09/11/24 Zamzam Wheeler HEALTH AND WELLNESS INSTRUCTOR [address] [place] [address] Nurse Practitioner Internal Medicine 01/16/24 Arturo Chanel MA Family Medicine 09/24/24 La Pack NP [address] [place] [address] Nurse Practitioner Family Medicine 02/06/25 Credit Card Control Clerk Relationship Specialty Start Date End Date Shaikh Sánchez MD [address] [place] [address] PCP - [place] 11/14/23 Ian Soares MD [address] [place] [address] PCP - General Family Medicine 09/11/24 Zamzam Wheeler NP [address] [place] [address] Nurse Practitioner Internal Medicine 01/16/24 Arturo Chanel MA Family Medicine 09/24/24 La Pack NP [address] [place] [address] Nurse Practitioner Family Medicine 02/06/25 Credit Card Control Clerk Relationship Specialty Start Date End Date Shaikh Sánchez MD [address] [place] [address] PCP - [place] IN 11/14/23 Ian Soares MD [address] [place] [address] PCP - General Family Medicine 09/11/24 Zamzam Wheeler NP [address] [place] [address] Nurse Practitioner Internal Medicine 01/16/24 Arturo Chanel MA Family Medicine 09/24/24 La Pack NP [address] [place] [address] Nurse Practitioner Family Medicine 02/06/25 Credit Card Control Clerk Relationship Specialty Start Date End Date Shaikh Sánchez MD [address] [place] [address] PCP - [facility] 11/14/23 Ian Soares MD [address] [place] [address] PCP - General Family Medicine 09/11/24 Zamzam Wheeler NP [address] [place] [address] Nurse Practitioner Internal Medicine 01/16/24 Arturo Chanel MA [address] [place] [address] Family Medicine 09/24/24 La Pack NP [address] [place] [address] Nurse Practitioner Family Medicine 02/06/25 Credit Card Control Clerk Relationship Specialty Start Date End Date Shaikh Sánchez MD [address] [place] [address] PCP - Linda MORALES 11/14/23 Ian Soares MD [address] [place] [address] PCP - General Family Medicine 09/11/24 Zamzam Wheeler, HEALTH AND WELLNESS INSTRUCTOR [address] [place] [address] Nurse Practitioner Internal Medicine 01/16/24 Arturo Chanel MA [address] [place] [address] Family Medicine 09/24/24 La Pack NP [address] [place] [address] Nurse Practitioner Family Medicine 02/06/25 Credit Card Control Clerk Relationship Specialty Start Date End Date Shaikh Sánchez MD [address] [place] [address] PCP - Linda MORALES 11/14/23 Ian Soares MD [address] [place] [address] PCP - General Family Medicine 09/11/24 Zamzam Wheeler, HEALTH AND WELLNESS INSTRUCTOR [address] [place] [address] Nurse Practitioner Internal Medicine 01/16/24 Arturo Chanel MA [address] [place] [address] Family Medicine 09/24/24 La Pack NP [address] [place] [address] Nurse Practitioner Family Medicine 02/06/25 Credit Card Control Clerk Relationship Specialty Start Date End Date Shaikh Sánchez MD [address] [place] [address] PCP - Linda MORALES 11/14/23 Ian Soares MD [address] [place] [address] PCP - General Family Medicine 09/11/24 Zamzam Wheeler NP [address] [place] [address] Nurse Practitioner Internal Medicine 01/16/24 Arturo Chanel IN [address] [place] [address] Family Medicine 09/24/24 La Pack NP [address] [place] [address] Nurse Practitioner Family Medicine 02/06/25 Credit Card Control Clerk Relationship Specialty Start Date End Date Shaikh Sánchez MD [address] [place] [address] PCP - Linda MORALES 11/14/23 Ian Soares MD [address] [place] [address] PCP - General Family Medicine 09/11/24 Zamzam Wheeler NP [address] [place] [address] Nurse Practitioner Internal Medicine 01/16/24 Arturo Chanel MA [address] [place] [address] Family Medicine 09/24/24 La Pack NP [address] [place] [address] Nurse Practitioner Family Medicine 02/06/25 Credit Card Control Clerk Relationship Specialty Start Date End Date Shaikh Sánchez MD [address] [place] [address] PCP - [facility] 11/14/23 Ian Soares MD [address] [place] [address] PCP - General Family Medicine 09/11/24 Zamzam Wheeler NP [address] [place] [address] Nurse Practitioner Internal Medicine 01/16/24 Arturo Chanel MA [address] [place] [address] Family Medicine 09/24/24 La Pack NP [address] [place] [address] Nurse Practitioner Family Medicine 02/06/25 Credit Card Control Clerk Relationship Specialty Start Date End Date Shaikh Sánchez MD [address] [place] [address] PCP - [facility] 11/14/23 Ian Soares MD [address] [place] [address] PCP - General Family Medicine 09/11/24 Zamzam Wheeler NP [address] [place] [address] Nurse Practitioner Internal Medicine 01/16/24 La Pack NP [address] [place] [address] Nurse Practitioner Family Medicine 02/06/25 Team Status: Active Member Role Status Dates La Pack NP-C Primary Care Provider Active Team Status: Inactive Member Role Status Dates La Pack NP-C Primary Care Provider Active Start: July 31, 2025 End: July 31, 2025 SILVER Norman Attending Provider Active Start: July 31, 2025 End: July 31, 2025 Team Status: Active Member Role Status Dates La Pack NP-Grey Primary Care Provider Active Start: August 12, 2025 SILVER Norman Attending Provider Active Start: August 12, 2025 Team Status: Inactive Member Role Status Dates La Pack NP-Grey Primary Care Provider Active Start: August 22, 2025 End: August 22, 2025 La Pack NP-Grey Attending Provider Active Start: August 22, 2025 End: August 22, 2025 Reason for Visit (unrecogniz ed section and [...] Comments Med Refill 06/05/2025 Reason Comments Diabetes Goals (unrecognized section and content) Goals may be documented in a n alternate section FOR RECORDS PERTAINING TO PATIENTS WHO ARE [...] BE BASED ON THE PRIMARY CLINICAL RECORDS. [employer] provides no warranty or guarantee of the accuracy or completeness of information in this document.
[2025-08-27 14:25] LABS: Hematocrit 31.3 % (36.0-48.0); Hemoglobin 9.6 g/dL (12.0-16.0); Immature Granulocytes Abs Auto 0.03 10^3/uL (0.00-0.03); Immature Granulocytes Pct Auto 0.3 % (0.0-0.5); Lymphocytes Absolute Auto 0.9 10^3/uL (1.2-3.8); Mean Corpuscular HGB Conc 30.7 g/dL (29.9-35.2); Mean Corpuscular Hemoglobin 27.8 pg (26.7-34.0); Mean Corpuscular Volume 90.7 fL (81.0-99.0); Platelet Count 301 10^3/uL (150-450); Red Blood Count 3.45 10^6/uL (4.20-5.40); White Blood Count 9.2 10^3/uL (4.0-11.0)
[2025-08-27 14:35] LABS: Alanine Aminotransferase 33 U/L (14-59); Albumin Globulin Ratio 0.8; Albumin Level 3.4 g/dL (3.4-5.0); Alkaline Phosphatase 119 U/L (46-116); Anion Gap 7.8; Aspartate Amino Transferase 14 U/L (15-37); Blood Urea Nitrogen 28.0 mg/dL (7.0-18.0); Calcium 9.3 mg/dL (8.5-10.1); Carbon Dioxide 38.6 mmol/L (21.0-32.0); Chloride 102 mmol/L (98-107); Estimated GFR (African America >60 (>=60 mL/min/1.73m^2); Estimated GFR (Non-African Ame >60 (>=60 mL/min/1.73m^2); Globulin 4.3 g/dL; Glucose 115 mg/dL (74-106); Potassium 4.4 mmol/L (3.5-5.1); Sodium 144 mmol/L (136-145); Total Protein 7.7 g/dL (6.4-8.2)
[2025-08-27 14:42] LABS: NT Pro B Type Natriuretic Pept 150.0 pg/mL (<=900.0); Prealbumin 21.9 mg/dL (20.9-45.5)
[2025-08-27 15:11] LABS: Iron 40.0 ug/dL (50.0-170.0); Percent Iron Saturation 13.7 %; Total Iron Binding Capacity 292.0 ug/dL (250.0-450.0)
[2025-08-27 15:24] LABS: Ferritin 95.0 ng/mL (8.0-252.0)
[2025-08-28 08:09] LABS: Transferrin 231 mg/dL (192-364)
== END 2025-08-27 12:33 | disposition home or self-care (01) ==
LOC: LAB 12:34
PROVIDERS: PCP Nurse Practitioner; Visit Provider Nurse Practitioner
DX: R60.0 Localized edema (principal); E11.9 Type 2 diabetes mellitus without complications; D50.0 Iron deficiency anemia secondary to blood loss (chronic); F17.210 Nicotine dependence, cigarettes, uncomplicated; J96.01 Acute respiratory failure with hypoxia
CPT/HCPCS: 36415; 80048; 80053; 82728; 83540; 83550; 83880; 84134; 84466; 85025

== ENCOUNTER 2025-08-27 13:35 | Outpatient (OUT) | payer MEDICARE, MEDICAID, SELFPAY ==
--- OUTSIDE RECORDS SUMMARY | 2025-08-22 05:54 | XMS_ITS | Continuity of Care Document ---
Author Organization [facility] Address [address] [place] [address] Phone Care Team Providers Care Cafeteria Supervisor Name Role Phone La Pack CIGARETTE LIGHTER REPAIRER-C Primary Care Provider La Pack NP-C Attending Provider Care Teams Patient Care Team Team Status: Active Member Role Status Dates La Pack NP-C Primary Care Provider Active Visit Care Team Team Status: Inactive Member Role Status Dates La Pack NP-C Primary Care Provider Active Start: July 31, 2025 End: July 31, 2025 La Pack NP-Grey Attending Provider Active Start: July 31, 2025 End: July 31, 2025 Patient Care Team Team Status: Active Member Role Status Dates La Pack CIGARETTE LIGHTER REPAIRER-C Primary Care Provider Active Start: August 12, 2025 La Pack NP-C Attending Provider Active Start: August 12, 2025 Patient Care Team Team Status: Inactive Member Role Status Dates La Pack NP-C Primary Care Provider Active Start: August 22, 2025 End: August 22, 2025 La Pack NP-C Attending Provider Active Start: August 22, 2025 End: August 22, 2025 Chief Complaint and Reason for Visit Chief Complaint Admit Date Established Patient July 31, 2025 10:36am 3W August 22, 2025 8: 52am Reason for Visit Admit Date Edema of both lower extremities Septembe r 2024 10:36am Elevated TSH July 31, 2025 10:36am Generalized anxiety disorder July 152024 10:36am Iron deficiency anemia due to chronic bl ood loss July 31, 2025 10:36am Recurrent major depressive disorder, in full remission July 31, 2025 10:36am Edema of both lower extremities August 22, 2025 8:52am Iron deficiency anemia due to chronic bl ood loss August 22, 2025 8:52am Reason for Referral Referring Provider Name Referring Provider Address Referring Provider Phone Referral Date Requested Appointment Date Referral Reason August 22, 2025 R60.0 - Localized edema,S81.801A - Unspecified open wound, right lower leg, initial encounter,S81.8 02A - Unspecified open wound, left lower leg, initial encounter Allergies, Adverse Reactions, Alerts Allergen Type Severity Reaction Last Updated Verified Status No Known Allergies Allergy Unknown 2024 8:39pm Yes Active Social History Smoking Status Status Start Date End Date Date of Observa tion Ex-smoker (finding) January 04, 2025 9:04am Observation Status Observation Response Date of Response Legal Sex Female (finding) Sex Assigned At Female 1955 Family History Relationship Condition Age at Onset Recorded Date/T hiram father Heart disease Unknown brother Diabetes mellitus Unknown Heart disease Unknown Problems Active Problems Medical Problem Onset Date Status Edema of both lower extremities Unknown Active Encounter for subsequent [facility] wellness visit (AWV) in Medicare patient Unknown Active Generalized anxiety disorder Unknown Act desmond Myelopathy Unknown Active Acute hypoxic respiratory failure Unknown Active Screening mammogram, encounter for Unknown Active Cigarette nicotine dependence without complicati on Unknown Active Impaired mobility and activities of daily living Unknown Active Other hyperlipidemia Unknown Active Acquired hypothyroidism Unknown Active Iron deficiency anemia due to chronic blood loss Unknown Active Demyelinating disease Unknown Active Dyslipidemia Unknown Active Cellulitis Unknown Active Dermoid cyst of right ear Unknown Active Depression Unknown Active Osteoarthritis Unknown Active Elevated troponin Unknown Active Tobacco abuse Unknown Active Primary hypertension Unknown Active Open wound of both legs with complication Unknow n Active Abnormal CBC Unknown Active Type 2 diabetes mellitus wit hout complication, without long-term current use of insulin Unknown Active Recurrent falls Unknown Active Elevated TSH Unknown Active Recurrent major depressive disorder, in full rem ission Unknown Active Right acoustic neuroma Unknown Active COPD (chronic obstructive pulmonary disease) Unk nown Active Positive fecal occult blood test Unknown Active COPD exacerbation Unknown Active Sensorineural hearing loss of right ear Unknown Active HTN (hypertension) Unknown Active Vitamin D deficiency Unknown Active Inactive/Resolved Problems Medical Problem Onset Date Status Aspiration pneumonia Unknown Resolved Hypotension Unknown Resolved Medications Medication Status Dose Units Route Directions Qty Days St art Date Stop Date End Date Instructions Adherence Fluticasone -Umeclidin- Vilanter (Trelegy Ellipta) 200-62.5-25 mcg blister with device Active 1 INH INHALA TION Daily 180 2024 11:18a m Complies with drug therapy Albuterol Sulfate 2.5 mg /3 mL (0.083 %) solution for nebulizatio n Discont inued 2.5 MG INHALA TION Every 6 hours 1080 90 2024 11:20a [facility] 8:50p m Albuterol Sulfate 90 mcg/actuati on HFA aerosol inhaler Discont inued 2 PUFF INHALA TION Four times daily as needed for shortness of breath or wheezing 8.5 2024 7:13pm [facility] 2024 8:50p m Losartan 50 mg tablet Active 50 MG PO Daily 90 2024 2:00pm Complies with drug therapy Losartan 50 mg tablet Discont inued MG 2024 1:00am Febr2024 10:14 am Atorvastati n 40 mg tablet Discont inued MG 2024 1:00am Febru [email or web address] 10:14 am Metformin 500 mg tablet Discont inued MG 2024 1:00am Febr [email or web address] 10:14 am Meloxicam 7.5 mg tablet Discont inued MG 2024 1:00am Febru [email or web address] 10:14 am Omeprazole 20 mg capsule,del ayed release(DR/ EC) Discont inued MG 2024 1:00am Febru 2024 10:14 am Albuterol Sulfate 90 mcg/actuati on HFA aerosol inhaler Discont inued INHALA TION 2024 1:00am [facility] 2024 7:14p m Sertraline 50 mg tablet Discont inued MG 2024 1:00am 2024 10:14 am Fluticasone -Umeclidin- Vilanter (Trelegy Ellipta) 200-62.5-25 mcg blister with device Discont inued INHALA TION 2024 1:00am 2024 10:14 am Prednisone 20 mg Tablet Discont inued 40 MG PO Daily 4 2024 1:00am 2024 10:14 am Oseltamivir 30 mg Capsule Discont inued 30 MG PO Twice daily 4 2024 1:00am 2024 10:14 am Amoxicillin -Pot Clavulanate (Augmentin) 500-125 mg tablet Discont inued 1 TAB PO Twice daily 6 3 2024 1:00am 2024 10:14 am Atorvastati n 40 mg tablet Active 40 MG PO Daily 2024 10:11a m Complies with drug therapy Fluticasone -Umeclidin- Vilanter (Trelegy Ellipta) 200-62.5-25 mcg blister with device Discont inued INHALA TION Twice daily 2024 10:12a m Sarabjit [facility] 2024 11:20 am Losartan 50 mg tablet Discont inued 50 MG PO Daily 2024 10:12a m Sarabjit [facility] 2024 2:00p m Meloxicam 7.5 mg tablet Active 7.5 MG PO Daily 2024 10:13a m Complies with drug therapy Metformin 500 mg tablet Active 500 MG PO Daily 2024 10:13a m Complies with drug therapy Omeprazole 20 mg capsule,del ayed release(DR/ EC) Active 20 MG PO Daily 2024 10:13a m Complies with drug therapy Sertraline 50 mg tablet Discont inued 50 MG PO Daily 2024 10:14a m Sarabjit su 2024 10:56 am Sertraline 50 mg tablet Active 0 PO Daily 2024 10:52a m 100MG orally daily; Complies with drug therapy Buspirone 5 mg tablet Discont inued 5 MG PO Twice daily 2024 12:00a m [facility] 2024 11:35 am Albuterol Sulfate 2.5 mg /3 mL (0.083 %) solution for nebulizatio n Discont inued 2.5 MG INHALA TION Every 6 hours 2024 12:00a m [facility] 2024 11:20 am Albuterol Sulfate 90 mcg/actuati on HFA aerosol inhaler Discont inued 2 PUFF INHALA TION Every 4 hours 2024 12:00a m 2024 8:49p m Rsv Vac, Pref A And Pref B(Pf) (Abrysvo (Pf)) 120 mcg/0.5 mL recon soln Discont inued ML IM 2024 12:00a m 2024 8:42p m Furosemide 20 mg tablet Discont inued 20 MG PO Daily 2024 12:00a m [facility]2024 11:35 am Lorazepam (Ativan) 0.5 mg tablet Discont inued 0.5 MG PO Daily at bedtime as needed 2024 12:00a m Octob er 2024 9:27a m Furosemide 40 mg tablet Discont inued 40 MG PO Daily 30 2024 12:00a m Octob er 2024 9:44a m Buspirone 7.5 mg tablet Active 7.5 MG PO Twice daily 60 2024 12:00a m Complies with drug therapy Albuterol Sulfate 90 mcg/actuati on HFA aerosol inhaler Active 2 PUFF INHALA TION Four times daily as needed for shortness of breath or wheezing 8.5 2024 8:50pm Complies with drug therapy Albuterol Sulfate 2.5 mg /3 mL (0.083 %) solution for nebulizatio n Active 2.5 MG INHALA TION Every 6 hours 1080 90 Septem david 2024 8:50pm Complies with drug therapy Bumetanide 1 mg tablet Active 1 MG PO Daily 30 Octobe r 2024 12:00a m Complies with drug therapy Acetaminoph en 500 mg capsule Active 500 MG PO Every 6 hours as needed 2024 1:00am Complies with drug therapy Lorazepam 0.5 mg tablet Discont inued 0.5 MG PO Three times daily as needed 2024 1:00am Septe mber 2024 8:43p m Ondansetron Hcl 4 mg tablet Active 4 MG PO Every 6 hours as needed 2024 1:00am Complies with drug therapy Relevant Diagnostic Tests and/or Laboratory Data Laboratory Results Test Collection Date/Time Result Date/Time Result Interpretation Reference Range Result Comment Performing Site Ferritin August 12, 2025 1:07pm August 12, 2025 1:07pm 93.0 ng/mL 8.0-252.0 Anion Gap August 12, 2025 1:07pm August 12, 2025 1:07pm 11.6 Albumin/Globu maria victoria Ratio August 12, 2025 1:07pm August 12, 2025 1:07pm 0.9 Albumin August 12, 2025 1:07pm August 12, 2025 1:07pm 3.6 g/dL 3.4-5.0 Alkaline Phosphatase August 12, 2025 1:07pm August 12, 2025 1:07pm 111 U/L 46-116 Alanine Aminotransfer ase (ALT/SGPT) August 12, 2025 1:07pm August 12, 2025 1:07pm 29 U/L 14-59 Aspartate Amino Transf (AST/SGOT) August 12, 2025 1:07pm August 12, 2025 1:07pm 15 U/L 15-37 BUN/Creatinin e Ratio August 12, 2025 1:07pm August 12, 2025 1:07pm 37.0 Blood Urea Nitrogen August 12, 2025 1:07pm August 12, 2025 1:07pm 27.0 mg/dL Above high normal 7.0-18.0 Calcium Level August 12, 2025 1:07pm August 12, 2025 1:07pm 9.1 mg/dL 8.5-10.1 Chloride Level August 12, 2025 1:07pm August 12, 2025 1:07pm 102 mmol/L 98-107 Carbon Dioxide Level August 12, 2025 1:07pm August 12, 2025 1:07pm 34.6 mmol/L Above high normal 21.0-32.0 Creatinine August 12, 2025 1:07pm August 12, 2025 1:07pm 0.73 mg/dL 0.55-1.02 Estimated GFR () August 12, 2025 1:07pm August 12, 2025 1:07pm >60 >=60 mL/min/1.7 3m 2 Estimated GFR (Non- August 12, 2025 1:07pm August 12, 2025 1:07pm >60 >=60 mL/min/1.7 3m 2 Globulin August 12, 2025 1:07pm August 12, 2025 1:07pm 3.9 g/dL Glucose Level August 12, 2025 1:07pm August 12, 2025 1:07pm 107 mg/dL Above high normal 74-106 Potassium Level August 12, 2025 1:07pm August 12, 2025 1:07pm 4.2 mmol/L 3.5-5.1 Sodium Level August 12, 2025 1:07pm August 12, 2025 1:07pm 144 mmol/L 136-145 Total Bilirubin August 12, 2025 1:07pm August 12, 2025 1:07pm 0.3 mg/dL 0.2-1.0 Total Protein August 12, 2025 1:07pm August 12, 2025 1:07pm 7.5 g/dL 6.4-8.2 Vital Signs Vital Reading Result Reference Range Collection Date/Time Height 63 [in_i] July 31, 2025 11:02am Body Temperature 98.1 [degF] 97.6-99.0 July 152024 11:02am Heart Rate 92 /min 60-100 July 31, 2025 11:02am Respiratory rate 18 /min 12-24 July 152024 11:02am Oxygen saturation by Pulse oximetry 95 % 95-100 July 31, 2025 11:02am BP Systolic 98 mm[Hg] 100-140 July 31, 2025 11:02am BP Diastolic 60 mm[Hg] 60-100 July 31, 2025 11:02am Inhaled oxygen flow rate 3 L/min Sep tember 2024 11:02am Height 63 [in_i] August 22 9:03am Weight 68.54 kg August 22 9:03am Body Temperature 97.3 [degF] 97.6-99.0 August 9:03am Heart Rate 84 /min 60-100 August 22 9:03am Respiratory rate 20 /min 12-August 9:03am Oxygen saturation by Pulse oximetry 98 % 95-100 August 22, 2025 9: 03am BP Systolic 98 mm[Hg] 100-140 August 22 9:03am BP Diastolic 64 mm[Hg] 60-100 August 22 9:03am BMI (Body Mass Index) 26.7 kg/m2 Octobe r 2024 9:03am Inhaled oxygen flow rate 3 L/min Oct waqas 2024 9:03am Advance Directives Advance Directive Response Recorded Date/ Time Advance Directives No June 25, 2024 8:07am Insurance Providers Guarantor James Velazquez Address [address] [place] [address] Contact Info. Home Phone: Payer Policy Id Subscriber's Name Subscriber Id Effectiv e Date Expiration Date Medicaid [id number] James Velazquez [id number] [employer] Dual Adv [id number] James Velazquez [id number] Encounters Encounter Location(s) Arrival/Admit Date Discharge/Depart Date Provider(s) Departed Physician/Prov ider Office Visit -[facility] Medicine Bernard July 31, 2025 10:36am July 31, 2025 11:42am SILVER Norman Non-patient / Non-visit -[facility] August 12, 2025 1:07pm SILVER Norman Departed Physician/Prov ider Office Visit -[facility] Family Medicine Benja August 22, 2025 8:52am August 22, 2025 9:53am La Pack , CIGARETTE LIGHTER REPAIRER-C Recent Diagnosis Onset Date Admit Date Edema of both lower extremities Unknown July 31, 2025 10:36am Elevated TSH Unknown July 31, 2025 10:36am Generalized anxiety disorder Unknown Sep tember 2024 10:36am Iron deficiency anemia due t o chronic blood loss Unknown July 31, 2025 10:36am Recurrent major depressive d isorder, in full remission Unknown July 31, 2025 10:36am Edema of both lower extremities Unknown August 22, 2025 8:52am Iron deficiency anemia due t o chronic blood loss Unknown August 22, 2025 8:52am Assessments Diagnosis Onset Date Resolution Status Admit Date Edema of both lower extremities acute July 31, 2025 10:36am Elevated TSH acute July 312024 10:36am Generalized anxiety disorder acute July 31, 2025 10:36am Iron deficiency anemia due t o chronic blood loss acute July 10:36am Recurrent major depressive disorder, in full remission acute Jul 10:36am Edema of both lower extremities acute August 22 8:52am Iron deficiency anemia due t o chronic blood loss acute August 22, 2025 8:52am Plan of Treatment Author [facility] Authored July 31, 2025 11:52am last appt increased dose on sertarline and added buspar keep sertraline at 100, increase buspar to 7.5mg BID last appt with increased sertraline and added buspar cont sertraline at 100mg, increase buspar to 7.5mg BID last appt started on lasix recheck labs potassium was stable, cont elevation, taiwo wraps, increase lasix to 40mg daily check labs on 08/12/25 labs 3 weeks ago, iron was 30, no acute anemia, will order ferritin with lab check she is taking ferrous sulfate 2 daily consider iron infusion TSH 3 weeks ago 3.785, Free T4 WNL Author [facility] Authored August 22, 2025 5: 49am last appt started on lasix recheck labs potassium was stable, cont elevation, taiwo wraps, increase lasix to 40mg daily check labs on 08/12/25 labs 3 weeks ago, iron was 30, no acute anemia, will order ferritin with lab check she is taking ferrous sulfate 2 daily consider iron infusion Future Tests Future scheduled test information is unavailable Pending Tests Test Name Ordered Date Scheduled Date Comprehensive Metabolic Panel August 22, 2025 9:45am Future Visits Future appointment information is unavailable Referrals to Other Providers Reason for Referral Referral Start Date Provider Provider Contact Information Provider Address R60.0 - Localized edema,S81.801A - Unspecified open wound, right lower leg, initial encounter,S81.802A - Unspecified open wound, left lower leg, initial encounter August 22, 2025 [facility] Future Procedures Procedure Name Ordered Date Scheduled Date B-Type Natriuretic Peptide August 22, 2025 9:4 5am Complete Blood Count Auto Diff August 22, 2025 9:15am Iron and TIBC Profile August 22, 2025 9:15am Ferritin August 22, 2025 9:15am Prealbumin August 22, 2025 9:45am Transferrin August 22, 2025 9:15am HCG,Urine August 22, 2025 9:45am Future Medications Future medication information is unavailable Patient Instructions Patient instructions are unavailable Hospital Discharge Instructions Ambulatory Orders* Referral to Wound Care Time Frame: 08/22/25, Location: None Selected
--- OUTSIDE RECORDS SUMMARY | 2025-08-27 13:41 | XMS_ITS | Encounter Summary ---
Author Organization [facility] Address [address] [place] [address] Care Team Providers Care Social Work Supervisor Name Role Phone Shaikh KEV Sánchez Unavailable [phone] Zamzam Wheeler SCREEN DOOR MAKER Unavailable Ian Rader MD Primary Care Provider Jhoana Cradoso SCREEN DOOR MAKER Unavailable Arturo Chanel MA Unavailable [phone] La Pack SCREEN DOOR MAKER Unavailable [phone] Encounter Details Date Type Department Care Team (Late st Contact Info) Description 01/30/2025 Orders Only [facility] [address] [place] [address] Ian Rader MD [address] [place] [address] Social History Tobacco Use Types Packs/Day Years [...] documented as of this encounter Care Teams Social Work Supervisor Relationship Specialty Start Date End Date Shaikh Sánchez MD [address] [place] [address] PCP - Linda MORALES 11/14/23 Ian Rader MD [address] [place] [address] PCP - General Family Medicine 09/11/24 Zamzam Wheeler NP [address] [place] [address] Nurse Practitioner Internal Medicine 01/16/24 Jhoana Cardoso NP [address] [place] [address] Nurse Practitioner Family Medicine 09/11/24 02/05/25 Arturo Chanel MA [address] [place] [address] Family Medicine 09/24/24 07/09/25 La Pack NP [address] [place] [address] Nurse Practitioner Family Medicine 02/06/25 documented as of this encounter
--- OUTSIDE RECORDS SUMMARY | 2025-08-27 13:41 | XMS_ITS | Encounter Summary ---
Author Organization [facility] Address [address] [facility] [place] [address] Care Team Providers Care Curing Finisher Name Role Phone Shaikh KEV Sánchez Unavailable [phone] Zamzam Wheeler REVERBERATORY FURNACE SUPERVISOR Unavailable Ian Rader MD Primary Care Provider Jhoana Cardoso REVERBERATORY FURNACE SUPERVISOR Unavailable [phone] Arturo Chanel MA Unavailable [phone] La Pack REVERBERATORY FURNACE SUPERVISOR Unavailable [phone] Encounter Details Date Type Department Care Team (Late st Contact Info) Description 01/14/2025 Abstract [facility] [address] [place] [address] Ian Rader MD [address] [place] [address] Social History Tobacco Use Types Packs/Day Years [...] documented as of this encounter Care Teams Curing Finisher Relationship Specialty Start Date End Date Shaikh Sánchez MD [address] [place] [address] PCP - Linda MORALES 11/14/23 Ian Rader MD [address] [place] [address] PCP - General Family Medicine 09/11/24 Zamzam Wheeler NP [address] [place] [address] Nurse Practitioner Internal Medicine 01/16/24 Jhoana Cardoso NP [address] [place] [address] Nurse Practitioner Family Medicine 09/11/24 02/05/25 Arturo Chanel MA [address] [place] [address] Family Medicine 09/24/24 07/09/25 La Pack NP [address] [place] [address] Nurse Practitioner Family Medicine 02/06/25 documented as of this encounter
--- OUTSIDE RECORDS SUMMARY | 2025-08-27 13:41 | XMS_ITS | Encounter Summary ---
Author Organization [facility] Address [address] [place] [address] Care Team Providers Care Golf Cart Attendant Name Role Phone Shaikh KEV Sánchez Primary Care Provider [phone] Shaikh KEV Sánchez Unavailable [phone] Zamzam Wheeler MACHINE ROOM OPERATOR Unavailable [phone] Shaikh KEV Sánchez Primary Care Provider [phone] Funmilayo Lombardo BARBER OR BEAUTY SHOP MANAGER Unavailable Gustavo Romero EPIDEMIOLOGY INTERN Unavailable Unavailable Kirstin Carreon EPIDEMIOLOGY INTERN Unavailable Ian Rader MD Primary Care Provider [phone] Jhoana Cardoso MACHINE ROOM OPERATOR Unavailable [phone] Arturo Chanel MA Unavailable [phone] La Pack MACHINE ROOM OPERATOR Unavailable [phone] Encounter Details Date Type Department Care Team (Late st Contact Info) Description 01/04/2024 Orders Only [facility] [address] [place] [address] Shaikh Sánchez MD [address] [facility] [place] [address] Social History Tobacco Use Types Packs/Day Years [...] on filedocumented in this encounter Care Teams Golf Cart Attendant Relationship Specialty Start Date End Date Shaikh Sánchez MD PCP - General Internal Medicine 07/05/23 01/15/24 Shaikh Sánchez MD [address] [place] [address] PCP - Linda MORALES 11/14/23 Shaikh Sánchez MD [address] [place] [address] PCP - General Internal Medicine 01/16/24 09/10/24 [place] [address] [place], [place] [address] PCP - General Family Medicine 09/11/24 Zamzam Wheeler NP [address] [place] [address] Nurse Practitioner Internal Medicine 01/16/24 Funmilayo Lombardo, BARBER OR BEAUTY SHOP MANAGER [address] [place] [address] Centerpuncher Arts And Crafts Instructor 06/28/24 07/04/24 Gustavo Romero LPN Licensed Practical Nurse Family Medicine 07/04/24 Kirstin Carreon LPN [address] [place] [address] Licensed Practical Nurse Family Medicine 07/27/2409/14 [place] [address] [place] [address] Nurse Practitioner Family Medicine 09/11/24 02/05/25 Arturo Chanel, [place] [address] [place] [address] Family Medicine 09/24/24 07/09/25 La Pack NP [address] [place] [address] Nurse Practitioner Family Medicine 02/06/25 documented as of this encounter
--- OUTSIDE RECORDS SUMMARY | 2025-08-27 13:41 | XMS_ITS | Clinical Summary ---
Author Organization [employer] Address [id number] [address] [place] [address] Care Team Providers Care Particle Board Supervisor Name Role Phone Russell Tillman MD [...] on file Insurance [employer] Care Teams Particle Board Supervisor Relationship Specialty Start Date End Date Russell Tillman MD PCP - General Family Medicine 02/07/17
--- OUTSIDE RECORDS SUMMARY | 2025-08-27 13:41 | XMS_ITS | Encounter Summary ---
Author Organization [facility] Address [address] [place] [address] Care Team Providers Care Senior Java Software Developer Name Role Phone Shaikh KEV Sánchez Unavailable [phone] Zamzam Wheeler COLLET MAKER Unavailable [phone] Shaikh KEV Sánchez Primary Care Provider [phone] Funmilayo Lombardo PLUSH FINISHER Unavailable Gustavo Romero TRAIN CREW MEMBER Unavailable Unavailable Kirstin Carreon TRAIN CREW MEMBER Unavailable Ian Rader MD Primary Care Provider [phone] Jhoana Cardoso COLLET MAKER Unavailable [phone] Arturo Chanel MA Unavailable [phone] La Pack COLLET MAKER Unavailable [phone] Encounter Details Date Type Department Care Team (Late st Contact Info) Description 03/12/2024 Orders Only [facility] [address] [place] [place] [address] Shaikh Sánchez MD [address] [place] [address] Social History Tobacco Use Types Packs/Day Years [...] as of this encounter Care Teams Senior Java Software Developer Relationship Specialty Start Date End Date Shaikh Sánchez MD [address] [place] [address] PCP - Linda MORALES 11/14/23 Shaikh Sánchez MD [address] [place] [address] PCP - General Internal Medicine 01/16/24 09/10/24 [place] [address] [place] [address] PCP - General Family Medicine 09/11/24 Zamzam Wheeler NP [address] [place] [address] Nurse Practitioner Internal Medicine 01/16/24 [place] [address] [place] [address] Neurology Professor Die Casting Machine Operator 06/28/24 07/04/24 Gustavo Romero LPN Licensed Practical Nurse Family Medicine 07/04/24 Kirstin Carreon LPN [address] [place] [address] Licensed Practical Nurse Family Medicine 07/27/2409/14 Jhoana Cardoso, GREG [address] [place] [address] Nurse Practitioner Family Medicine 09/11/24 02/05/25 Arturo Chanel MA [address] [place] [address] Family Medicine 09/24/24 07/09/25 La Pack NP [address] [place] [address] Nurse Practitioner Family Medicine 02/06/25 documented as of this encounter
--- OUTSIDE RECORDS SUMMARY | 2025-08-27 13:41 | XMS_ITS | Encounter Summary ---
Author Organization [facility] Address [address] [facility] [place] [address] Care Team Providers Care Dermatologist Name Role Phone Shaikh KEV Sánchez Unavailable [phone] Zamzam Wheeler LOCK EXPERT Unavailable Ian Rader MD Primary Care Provider Jhoana Cardoso LOCK EXPERT Unavailable [phone] Arturo Chanel MA Unavailable [phone] La Pack LOCK EXPERT Unavailable [phone] Encounter Details Date Type Department Care Team (Late st Contact Info) Description 01/14/2025 Abstract [facility] [address] [place] [address] Ian Rader MD [address] [place] [address] Social History Tobacco Use Types Packs/Day Years [...] documented as of this encounter Care Teams Dermatologist Relationship Specialty Start Date End Date Shaikh Sánchez MD [address] [place] [address] PCP - Linda MORALES 11/14/23 Ian Rader MD [address] [place] [address] PCP - General Family Medicine 09/11/24 Zamzam Wheeler NP [address] [place] [address] Nurse Practitioner Internal Medicine 01/16/24 Jhoana Cardoso NP [address] [place] [address] Nurse Practitioner Family Medicine 09/11/24 02/05/25 Arturo Chanel MA [address] [place] [address] Family Medicine 09/24/24 07/09/25 La Pack NP [address] [place] [address] Nurse Practitioner Family Medicine 02/06/25 documented as of this encounter
--- OUTSIDE RECORDS SUMMARY | 2025-08-27 13:41 | XMS_ITS | Encounter Summary ---
Author Organization [facility] Address [address] [place] [address] Care Team Providers Care Area Plant Manager Name Role Phone Shaikh KEV Sánchez Unavailable [phone] Zamzam Wheeler DIALYSIS EQUIPMENT TECHNICIAN Unavailable [phone] Shaikh KEV Sánchez Primary Care Provider [phone] Funmilayo Lombardo ENDOCRINOLOGY PHYSICIAN Unavailable Gustavo Romero CONTACT AND SERVICE CLERKS SUPERVISOR Unavailable Unavailable Kirstin Carreon CONTACT AND SERVICE CLERKS SUPERVISOR Unavailable Ian Rader MD Primary Care Provider [phone] Jhoana Cardoso DIALYSIS EQUIPMENT TECHNICIAN Unavailable [phone] Arturo Chanel MA Unavailable [phone] La Pack DIALYSIS EQUIPMENT TECHNICIAN Unavailable [phone] Encounter Details Date Type Department Care Team (Late st Contact Info) Description 01/16/2024 Clinisync Result Encounter [facility] External Department Unsolicited Shaikh Sánchez MD [address] [place] [address] Social History Tobacco Use Types Packs/Day Years [...] EST Narrative 01/16/2024 9:11 [place] [address] Mammography Report Signed Patient: ZULEYKA CHAUDHRY MR#: [id number] : 1955 Acct:[id number] Age/Sex: 68 / F ADM Date: 01/16/24 Loc: MAMMO Attending Dr: Shaikh Gonzalo Hooker Ordering Physician: Shaikh Morro Sánchez Results: Date of Service: 01/16/24 Follow Up: Procedure(s): MM tomosynthesis screening BI Accession Number(s): [id number] cc: Shaikh Morro Sánchez Patient Name: ZULEYKA CHAUDHRY MR#: [id number] : 1955 Exam Date: 01/16/2024 Ordering Doctor: [...] uterine cancer at age 53. LOCATION: [facility] BREAST COMPOSITION: Almost entirely fatty. FINDINGS: [...] M.D. Signed By: 01/16/24910 DD/ 9 TD/TT: Advanced Practice Psychiatric Nurse: Procedure Note Radiology, Radiologist, MD - 01/16/2024 [place] [address] Mammography Report Signed Patient: ZULEYKA CHAUDHRY MMR#: [id number] : 1955cct:[id number] Age/Sex: 68 / FADM Date: 01/16/24 Loc: MAMMO Attending Dr: Shaikh Gonzalo Hooker Ordering Physician: Shaikh Morro SánchezResults: Date of Service: 01/16/24Follow Up: Procedure(s): MM tomosynthesis screening BI Accession Number(s): [id number] cc: Shaikh Morro Sánchez Patient Name: ZULEYKA CHAUDHRY MR#: [id number] : 1955 Exam Date: 01/16/2024 Ordering Doctor: [...] uterine cancer at age 53. LOCATION: [facility] BREAST COMPOSITION: Almost entirely fatty. FINDINGS: [...] Morgan M.D. Signed By:01/16/24910 DD/ 9 TD/TT: Advanced Practice Psychiatric Nurse: us Shaikh Gonzalo [facility] Final Result documented in this encounter Visit Diagnoses Not on filedocumented in this encounter Care Teams Area Plant Manager Relationship Specialty Start Date End Date Shaikh Sánchez MD [address] [place] [address] PCP - Linda MORALES 11/14/23 Shaikh Sánchez MD [address] [place] [address] PCP - General Internal Medicine 01/16/24 09/10/24 [place] [address] [place] [address] PCP - General Family Medicine 09/11/24 Zamzam Wheeler NP [facility] [place] [address] Nurse Practitioner Internal Medicine 01/16/24 [place] [address] [place] [address] Director Of Fundraising Resource Program Teacher 06/28/24 07/04/24 Gustavo Romero LPN Licensed Practical Nurse Family Medicine 07/04/24 Kirstin Carreon LPN [address] [place] [address] Licensed Practical Nurse Family Medicine 07/27/2409/14 [place] [address] [place] [address] Nurse Practitioner Family Medicine 09/11/24 02/05/25 Arturo Chanel LA [address] [place] [address] Family Medicine 09/24/24 07/09/25 La Pack NP [address] [place] [address] Nurse Practitioner Family Medicine 02/06/25 documented as of this encounter
--- OUTSIDE RECORDS SUMMARY | 2025-08-27 13:41 | XMS_ITS | Clinical Summary ---
Author Organization [facility] Healthcare Address [address] [place] [address] Care Team Providers Care Senior Underwriter Name Role Phone Shaikh KEV Sánchez Unavailable [phone] Zamzam Wheeler METEOROLOGIST LIAISON Unavailable [phone] Ian Rader MD Primary Care Provider [phone] La Pack METEOROLOGIST LIAISON Unavailable [phone] Allergies No known active allergies Medications [...] ([facility]) 1 each by In Vitro route Daily 100 strip 3 01/31/20 25 026 Active albuterol HFA 90 mcg/act inhalerIndication s:Chronic obstructive pulmonary disease, unspecified COPD type ([facility]) Inhale 2 puffs every 4 (four) hours if needed for wheezing 18 g 3 02/26/20 25 Active Abrysvo 120 MCG/0.5ML reconstituted solution 12/21/19 25 Active Fluticasone-Umecl idin-Vilant (Trelegy Ellipta) 200-62.5-25 MCG/ACT aerosol powderIndications :Asthma with COPD (chronic obstructive pulmonary disease) ([facility]) Inhale 1 Inhalation Daily 3 each 1 05/06/20 25 Active Fluticasone-Umecl idin-Vilant (Trelegy Ellipta) 200-62.5-25 MCG/ACT aerosol powderIndications :Asthma with COPD (chronic obstructive pulmonary disease) ([facility]) Inhale 1 Inhalation Daily 3 each [...] tabletIndications :Type 2 diabetes mellitus without complications ([facility]) Take 1 tablet (500 mg) by mouth [...] ns:Chronic obstructive pulmonary disease, unspecified COPD type ([facility]) Take 3 mL (2.5 mg) by nebulization [...] 06/13/2025 Abnormal CBC 06/13/2025 Encounter for subsequent phaneuf hospital wellness visit (AWV) in Medicare patient [...] 5:02 AM EDT): Has not smoked since [employer] Assessment & Plan (02/06/2025 10:33 AM EDT): Has not smoked since [employer] Assessment & Plan (01/23/2025 6:53 AM EDT): [...] PLAN FOR MODERATE PERSISTENT ASTHMA WITHOUT COMPLICATION ([facility]) WRITTEN ON 11/21/2023 3:40 PM BY SHAIKH [...] diabetes mellitus type 2. Patient presented to [facility] for monitoring of acoustic neuroma initially [...] La Pack NP 07/04/2025 Patient Outreach [facility] [address] [place] [address] Arturo Chanel MA 06/26/2025 10:30 AM EDT Office Visit [facility] [address] [place] [address] La Pack NP Edema of both lower legs (Primary Dx); Primary hypertension ; Chronic obstructive pulmonary disease, unspecified COPD type (HCC); Type 2 diabetes mellitus without complication, without long-term current use of insulin (HCC); Cigarette nicotine dependence without complication; Depression, unspecified ; Generalized anxiety disorder ; Cellulitis of left lower extremity 06/26/2025 Bamboo flowsheet [facility] [address] [place] [address] La Pack NP 06/13/2025 Orders Only [facility] [address] [place] [address] La Pack NP Iron deficiency (Primary Dx); Abnormal CBC 06/07/2025 Refill [facility] [address] [place] [address] Ian Rader MD Chronic obstructive pulmonary disease, unspecified COPD type (HCC) 06/05/2025 Refill [facility] [address] [place] [address] La Pack NP Primary hypertension (Primary Dx); Hyperlipidemia, unspecified ; Vitamin D deficiency; Type 2 diabetes mellitus without complications (HCC); Gastro-esophageal reflux disease without esophagitis; Depression, unspecified 06/05/2025 Orders Only [facility] [address] [place] [address] La Pack NP from Last 3 Months [...] NP CLINIS[facility] Final Result Performing Organization Address [facility]/ZIP Co de Phone Number [facility] * ALL THYROXINE (T4) FREE (07/10/2025 11:11 AM EDT) FREE T4 1.12 0.76 - 1.46 ng/dL TB 07/10/2025 11:1 1 AM EDT 07/10/2025 11:14 AM EDT Narrative CLINIS[facility] - 07/10/2025 12:12 PM EDT La Pack NP CLIN[facility] Final Result Performing Organization Address City/[facility]/ZIP Co de Phone Number [facility] * (ABNORMAL) ALL THYROID STIM HORMONE (07/10/2025 [...] 0.55 - 1.02 mg/dL TBH TBH EGFR-AF VINCENTIAN >60 >=60 mL/min/1.7 3m 2 TBH TBH EGFR-NON AF VINCENTIAN >60 >=60 mL/min/1.7 3m 2 TBH BUN [...] EDT Narrative 02/18/2025 3:54 PM EDT The [place] [id number] Mammography Report Signed Patient: ZULEYKA CHAUDHRY MR#: [id number] : 1955 Acct:[id number] Age/Sex: 69 / F ADM Date: 02/18/25 Loc: MAMMO Attending Dr: La Pack NP Ordering Physician: La Pack NP Results: Date of Service: 02/18/25 Follow Up: Procedure(s): MM tomosynthesis screening BI Accession Number(s): [id number] cc: La Pack NP Patient Name: ZULEYKA CHAUDHRY MR#: [id number] : 1955 Exam Date: 02/18/2025 Ordering Doctor: [...] uterine cancer at age 53. LOCATION: The [facility] BREAST COMPOSITION: The breasts are almost [...] Signed By: 02/18/25 1554 DD/ 1553 TD/TT: Waistline Joiner Lockstitch: Procedure Note Radiology, Radiologist, - 02/18/2025 [place] [address] Mammography Report Signed Patient: ZULEYKA CHAUDHRY MMR#: [id number] : 1955cct:[id number] Age/Sex: 69 / FADM Date: 02/18/25 Loc: MAMMO Attending Dr: La Pack METEOROLOGIST LIAISON Ordering Physician: La Pack NPResults: Date of Service: 02/18/25Follow Up: Procedure(s): MM tomosynthesis screening BI Accession Number(s): [id number] cc: La Pack NP Patient Name: ZULEYKA CHAUDHRY MR#: [id number] : 1955 Exam Date: 02/18/2025 Ordering Doctor: RISHABH Pack MANAGER FINANCIAL RADIOLOGY REPORT PROCEDURE: MM TOMOSYNTHESIS SCREENING BI COMPARISON: MM TOMOSYNTHESIS SCREENING BI, 01/16/2024. MG MAMM [id number] [place] CAD, 08/11/2021. MG MAMM SCREEN [place]SON W CAD, 07/04/2020. MG MAMM BILSCRN W CAD DIG, 05/02/2015. INDICATIONS: Screening for malignant neoplasm Calculator Name NCI Breast Cancer Risk Assessment Tool 5 Year Breast Cancer Risk 1.10% Lifetime Breast Cancer Risk 3.20% Personal Breast Cancer No Personal Ovarian Cancer No Treatments None Family Cancers Mother with uterine cancer at age 55. LOCATION: The [facility] BREAST COMPOSITION: The breasts are almost [...] M.D. Signed By:02/18/25 1554 DD/ 1553 TD/TT: Waistline Joiner Lockstitch: La Pack METEOROLOGIST LIAISON [facility] IMAGING Final Result * Diabetic Retinopathy [...] Maintenance Insurance [employer] Care Teams Senior Underwriter Relationship Specialty Start Date End Date Shaikh Sánchez MD [address] [place] [address] PCP - Linda MORALES 11/14/23 Ian Rader MD [address] [place] [address] PCP - General Family Medicine 09/11/24 Zamzam Wheeler NP [address] [place] [address] Nurse Practitioner Internal Medicine 01/16/24 La Pack NP [address] [place] [address] Nurse Practitioner Family Medicine 02/06/25
--- OUTSIDE RECORDS SUMMARY | 2025-08-27 13:41 | XMS_ITS | Encounter Summary ---
Author Organization [facility] Address [address] [place] [address] Care Team Providers Care Report Clerk Name Role Phone Shaikh KEV Sánchez Unavailable [phone] Zamzam Wheeler WILDLIFE REFUGE SPECIALIST Unavailable Ian Rader MD Primary Care Provider [phone] Arturo Chanel MA Unavailable [phone] La Pack NP Unavailable [phone] Encounter Details Date Type Department Care Team (Late st Contact Info) Description 05/07/2025 Abstract [facility] [address] [place] [address] La Pack NP [address] [place] [place] [address] Social History Tobacco Use Types Packs/Day Years [...] documented as of this encounter Care Teams Report Clerk Relationship Specialty Start Date End Date Shaikh Sánchez MD [address] [place] [address] PCP - Linda MORALES 11/14/23 Ian Rader MD [address] [place] [address] PCP - General Family Medicine 09/11/24 Zamzam Wheeler NP [address] [place] [address] Nurse Practitioner Internal Medicine 01/16/24 Arturo Chanel MA [address] [place] [address] Family Medicine 09/24/24 07/09/25 La Pack NP [address] [place] [address] Nurse Practitioner Family Medicine 02/06/25 documented as of this encounter
--- OUTSIDE RECORDS SUMMARY | 2025-08-27 13:41 | XMS_ITS | Clinical Summary ---
Author Organization [facility] Address [address] [place] [address] Phone Care Team Providers Care Shellfish Processing Machine Tender Name Role Phone Unavailable Primary Care Provider [...]
--- OUTSIDE RECORDS SUMMARY | 2025-08-27 13:41 | XMS_ITS | Encounter Summary ---
Author Organization [facility] Address [address] [place] [address] Care Team Providers Care Class 1 Owner Operator Name Role Phone Shaikh KEV Sánchez Unavailable [phone] Zamzam Wheeler ASSISTANT MANAGER BILINGUAL Unavailable Ian Rader MD Primary Care Provider [phone] Arturo Chanel MA Unavailable [phone] La Pack NP Unavailable [phone] Encounter Details Date Type Department Care Team (Late st Contact Info) Description 06/05/2025 Orders Only [facility] [address] [place] [address] La Pack NP [address] [place] [address] Social History Tobacco Use Types Packs/Day Years [...] LABS (06/05/2025 9:11 AM EDT) La Pack ASSISTANT MANAGER BILINGUAL LAB CHG PERFORMABLES Final Resu lt documented in this encounter Visit Diagnoses Not on filedocumented in this encounter Additional Health Concerns Assessment Noted Time PHQ-9 Depression Total Score: 1 03/08/20 3:39 PM EDT documented as of this encounter Care Teams Class 1 Owner Operator Relationship Specialty Start Date End Date Shaikh Sánchez MD [address] [place] [address] PCP - [place] MA 11/14/23 Ian Rader MD [address] [place] [address] PCP - General Family Medicine 09/11/24 Zamzam Wheeler NP [address] [place] [address] Nurse Practitioner Internal Medicine 01/16/24 Arturo Chanel MA [address] [place] [address] Family Medicine 09/24/24 07/09/25 La Pack NP [address] [place] [address] Nurse Practitioner Family Medicine 02/06/25 documented as of this encounter
--- OUTSIDE RECORDS SUMMARY | 2025-08-27 13:41 | XMS_ITS | Encounter Summary ---
Author Organization [facility] Address [address] [place] [address] Care Team Providers Care Retail Performance Specialist Name Role Phone Shaikh KEV Sánchez Primary Care Provider [phone] Shaikh KEV Sánchez Unavailable [phone] Zamzam Wheeler WELDER APPRENTICE COMBINATION Unavailable [phone] Shaikh KEV Sánchez Primary Care Provider [phone] Funmilayo Lombardo RIVETER HELPER Unavailable Gustavo Romero PRODUCT SAFETY HEAD Unavailable Unavailable Kirstin Carreon PRODUCT SAFETY HEAD Unavailable Ian Rader MD Primary Care Provider [phone] Jhoana Cardoso WELDER APPRENTICE COMBINATION Unavailable [phone] Arturo Chanel MA Unavailable [phone] La Pack WELDER APPRENTICE COMBINATION Unavailable [phone] Encounter Details Date Type Department Care Team (Late st Contact Info) Description 12/12/2023 Clinisync Result Encounter [facility] External Department Unsolicited Shaikh Sánchez MD [address] [place] [place] [address] Social History Tobacco Use Types Packs/Day Years [...] AM EST Narrative 12/21/2023 8:02 [place] [address] Respiratory Report Signed Patient: ZULEYKA CHAUDHRY MR#: [id number] : 1955 Acct:[id number] Age/Sex: 68 / F ADM Date: 12/12/23 Loc: CARD Attending Dr: Shaikh Gonzalo Hooker Ordering Physician: Shaikh Morro Sánchez Date of Service: 12/12/23 Procedure(s): RT pulmonary function test Accession Number(s): [id number] cc: [facility] Test Date: 2023-12-12 Pat Name: ZULEYKA CHAUDHRY Department: Room: - Gender: Female Driver: Zaina Albarado RRT : 1955 Requested By: [id number] Order Number: [id number] Yani MD: [place] Interpretive Statements Pulmonary function [...] 12/21/23 0802 12/21/23 08 DD/ 0910 TD/TT: Sheet Manager: Procedure Note Radiology, Radiologist, - 12/21/2023 [place] [address] Respiratory Report Signed Patient: ZULEYKA CHAUDHRY MMR#: [id number] : 1955cct:[id number] Age/Sex: 68 / FADM Date: 12/12/23 Loc: CARD Attending Dr: Shaikh Gonzalo Hooker Ordering Physician: Shaikh Morro Sánchez Date of Service: 12/12/23 Procedure(s): RT pulmonary function test Accession Number(s): [id number] cc: [facility] Test Date: 2023-12-12 Pat Name: ZULEYKA CHAUDHRY Department: Room: - Gender: Female Driver: Zaina Albarado RRT : 1955 Requested By: [id number] Order Number: [id number] Reading MD: [place] Interpretive Statements Pulmonary [...] Signed By:12/21/23 0812/21/23 08 DD/ 0910 TD/TT: Sheet Manager: Shaikh Gonzalo ANGULO [facility] IMAGING Final Result documented in this encounter Visit Diagnoses Not on filedocumented in this encounter Care Teams Retail Performance Specialist Relationship Specialty Start Date End Date Shaikh Sánchez MD PCP - General Internal Medicine 07/05/23 01/15/24 Shaikh Sánchez MD [address] [place] [address] PCP - Linda MORALES 11/14/23 Shaikh Sánchez MD [address] [place] [address] PCP - General Internal Medicine 01/16/24 09/10/24 [place] [address] [place], [place] [address] PCP - General Family Medicine 09/11/24 Zamzam Wheeler NP [address] [place] [address] Nurse Practitioner Internal Medicine 01/16/24 [place] [address] [place] [address] [employer] 06/28/24 07/04/24 Gustavo Romero LPN Licensed Practical Nurse Family Medicine 07/04/24 Kirstin Carreon LPN [address] [place] [address] Licensed Practical Nurse Family Medicine 07/27/2409/14 Jhoana Cardoso, GREG [address] [facility] [address] [place] [address] Nurse Practitioner Family Medicine 09/11/24 02/05/25 Arturo Chanel, CARMEN [address] [place] [address] Family Medicine 09/24/24 07/09/25 La Pack NP [address] [place] [address] Nurse Practitioner Family Medicine 02/06/25 documented as of this encounter
--- OUTSIDE RECORDS SUMMARY | 2025-08-27 13:41 | XMS_ITS | Encounter Summary ---
Author Organization [facility] Address [address] [place] [address] Care Team Providers Care Information Systems Security Analyst Name Role Phone Shaikh KEV Sánchez Primary Care Provider [phone] Shaikh KEV Sánchez Unavailable [phone] Zamzam Wheeler SHIRT HEMMER Unavailable [phone] Shaikh KEV Sánchez Primary Care Provider [phone] Funmilayo Lombardo MARKETING AUTOMATION SPECIALIST Unavailable Gustavo Romero FISHER CLAM Unavailable Unavailable Kirstin Carreon FISHER CLAM Unavailable Ian Rader MD Primary Care Provider [phone] Jhoana Cardoso SHIRT HEMMER Unavailable Arturo Chanel MA Unavailable [phone] La Pack SHIRT HEMMER Unavailable [phone] Reason for Visit * Reason Comments Med Refill Encounter Details Date Type Department Care Team (Late st Contact Info) Description 10/28/2023 Refill [facility] [address] [place] [address] Shaikh Sánchez MD [address] [place] [address] Iron deficiency; Other bursitis of elbow, left [...] elbow documented in this encounter Care Teams Information Systems Security Analyst Relationship Specialty Start Date End Date Shaikh Sánchez MD PCP - General Internal Medicine 07/05/23 01/15/24 Shaikh Sánchez MD [address] [place] [address] PCP - Linda MORALES 11/14/23 Shaikh Sánchez MD [address] [place] [address] PCP - General Internal Medicine 01/16/24 09/10/24 [place] [address] [place] [address] PCP - General Family Medicine 09/11/24 Zamzam Wheeler NP [address] [place] [address] Nurse Practitioner Internal Medicine 01/16/24 Funmilayo Lombardo, [facility] [address] [place] [address] Network Programmer Stitching Machine Operator 06/28/24 07/04/24 Gustavo Romero LPN Licensed Practical Nurse Family Medicine 07/04/24 Kirstin Carreon LPN [address] [place] [address] Licensed Practical Nurse Family Medicine 07/27/2409/14 [place] [address] [place] [address] Nurse Practitioner Family Medicine 09/11/24 02/05/25 Arturo Chanel, [place] [address] [place] [address] Family Medicine 09/24/24 07/09/25 La Pack NP [address] [place] [address] Nurse Practitioner Family Medicine 02/06/25 documented as of this encounter
--- OUTSIDE RECORDS SUMMARY | 2025-08-27 13:41 | XMS_ITS | Encounter Summary ---
Author Organization [facility] Address [address] [place] [address] Care Team Providers Care Softball Core Molder Name Role Phone Shaikh KEV Sánchez Unavailable [phone] Zamzam Wheeler MANAGER COMMUNITY OUTREACH Unavailable Ian Rader MD Primary Care Provider [phone] Jhoana Cardoso NP Unavailable Arturo Chanel MA Unavailable [phone] La Pack NP Unavailable [phone] Encounter Details Date Type Department Care Team (Late st Contact Info) Description 12/11/2024 Abstract [facility] [address] [place] [address] Jhaona Cardoso NP Social History Tobacco Use Types [...] documented as of this encounter Care Teams Softball Core Molder Relationship Specialty Start Date End Date Shaikh Sánchez MD [address] [place] [address] PCP - Linda MORALES 11/14/23 Ian Rader MD [address] [place] [address] PCP - General Family Medicine 09/11/24 Zamzam Wheeler NP [address] [place] [address] Nurse Practitioner Internal Medicine 01/16/24 Jhoana Cardoso NP [address] [place] [address] Nurse Practitioner Family Medicine 09/11/24 02/05/25 Arturo Chanel MA [address] [place] [address] Family Medicine 09/24/24 07/09/25 La Pack NP [address] [place] [address] Nurse Practitioner Family Medicine 02/06/25 documented as of this encounter
--- OUTSIDE RECORDS SUMMARY | 2025-08-27 13:45 | XMS_ITS | CCD ---
Author Organization [facility] CliniSymn Care Team Providers Care Ortho Nurse Name Role Phone CHALO, DR GIANNA PACHECO [...] Consulting Unavailable SHAIKH SÁNCHEZ Primary Care Physician [phone] Windnagel, Zamzam Admitting Unavailable Windnagel, Zamzam Referring Unavailable Windnagel, Zamzam Attending Unavailable Windnagel, Zamzam Referring Unavailable Windnagel, Zamzam Attending Unavailable Windnagel, Zamzam Admitting Unavailable Shaikh Sánchez MD Unavailable [place]el SECURITY BUSINESS ANALYST, Zamzam C Unavailable [phone] Shaikh Sánchez MD Primary Care Provider Kirstin Carreon LPN Unavailable Unavailable aIn Soares MD Primary Care Provider Daniel Cardoso NP Unavailable Gustavo Romero LPN Unavailable Unavailable [place] SECURITY BUSINESS ANALYST, Zamzam C Unavailable Arturo Chanel MA Unavailable Unavailable Walker SECURITY BUSINESS ANALYST-CDaniel Primary Care Provid er Ramos MD, Mohamad Admit Provider Kayla ANGULO, Daniel Attending Provider Sara ANGULO, Cecilia Other Provider Hernandez ANGULO, Suzette Other Provider Jeancarlos ANGULO, Ryan Other Provider Kelly JAIME, Ilana Other Provider Hubert Mcguire DO Other Provider Beni ANGULO, Dave Hidalgo Other Provider [phone] PROVIDER, UNKNOWN Attending Unavailable PROVIDER, UNKNOWN Admitting Unavailable Chalo ANGULO, Gianna Mir Primary Care Provider Unava ilable Liam SECURITY BUSINESS ANALYST, Zamzam Edmonds Unavailable Walker SECURITY BUSINESS ANALYST, Daniel Unavailable Ramone SECURITY BUSINESS ANALYST, La Unavailable Arturo Chanel MA Unavailable IAN SOARES Attending Unavailable RMAONE, LA Attending Unavailable RAMONE, LA Attending Unavailable RAMONE, LA Attending Unavailable DANIEL CARDOSO Attending UnavailDaniel Mcdermott Primary Care Unavaila ble Hernandez, Suzette Consulting Unavailable Ramos, Mohamad Admitting Unavailable Daniel Garza Attending Unavailable Ryan Arshad Consulting Unavailable Ilana Mendoza Consulting Unavailable Hubert Mcguire Jr Consulting UnavailDave Conn Consulting Unavaila ble Sara, Basem Consulting Unavailable Ramone SECURITY BUSINESS ANALYST-C, La Joe Primary Care Provider Ramone SECURITY BUSINESS ANALYST-C, La Joe Attending Provider Medications Current Medications [...] Asthma with COPD (chronic obstructive pulmonary disease) ([facility]) Inhale 1 Inhalation Daily 3 each 1 05/06/2025 08/04/2025 Active Start: 02-25-2025 End: 05-06-2025 Xvvzxslggpw-Vsyqsgxzj-Lqiaog (Trelegy Ellipta) 200-62.5-25 MCG/ACT aerosol powder Indications: Asthma with COPD (chronic obstructive pulmonary disease) ([facility]) Inhale 1 Inhalation Daily 3 each 1 02/25/2025 05/06/2025 Discontinued (Reorder) Start: 02-25-2025 End: 05-26-2025 Pcshrgqmpea-Gvfcjdomq-Sszxtv (Trelegy Ellipta) 200-62.5-25 MCG/ACT aerosol powder Indications: Asthma with COPD (chronic obstructive pulmonary disease) ([facility]) Inhale 1 Inhalation Daily 3 each 1 02/25/2025 05/26/2025 Active Start: 08-27-2024 End: 02-25-2025 Uloynfstvjv-Bwmypzsga-Egqaqu (Trelegy Ellipta) 200-62.5-25 MCG/ACT aerosol powder Indications: Asthma with COPD (chronic obstructive pulmonary disease) ([facility]) Inhale 1 Inhalation Daily 3 each 1 08/27/2024 02/25/2025 Discontinued (Reorder) Start: 08-27-2024 Fluticasone-Um eclidin-Vilant (Trelegy Ellipta) 200-62.5-25 MCG/ACT aerosol powder Indications: Asthma with COPD (chronic obstructive pulmonary disease) ([facility]) Inhale 1 Inhalation Daily 3 each 1 08/27/2024 Active Start: 08-27-2024 End: 11-25-2024 Ghlomtslalr-Sdxwechca-Flcfwd (Trelegy Ellipta) 200-62.5-25 MCG/ACT aerosol powder Indications: Asthma with COPD (chronic obstructive pulmonary disease) ([facility]) Inhale 1 Inhalation Daily 3 each 1 08/27/2024 11/25/2024 Active Start: 06-11-2024 End: 08-27-2024 Yxklwvnlpbp-Esswapgfy-Sbaxqc (Trelegy Ellipta) 200-62.5-25 MCG/ACT aerosol powder Indications: Asthma with COPD (chronic obstructive pulmonary disease) ([facility]) Inhale 1 Inhalation Daily 3 each 1 06/11/2024 08/27/2024 Discontinued (Reorder) Start: 06-11-2024 End: 09-09-2024 Pfdrbwwzaul-Wahqrejtl-Vemwce (Trelegy Ellipta) 200-62.5-25 MCG/ACT aerosol powder Indications: Asthma with COPD (chronic obstructive pulmonary disease) ([facility]) Inhale 1 Inhalation Daily 3 each 1 06/11/2024 09/09/2024 Active Olbzpksbrpb-Ykdyqjgnn-Wgaanj er (9 sources) Start: 07-18-2025 Vwgmbpzwwgw-Raemzcuym-Kngrky er (Trelegy Ellipta) 200-62.5-25 mcg blister with device Active 1 INH INHALATION Daily 180 July 18, 2025 11:18am Complies with drug therapy Start: 01-04-2025 End: 07-18-2025 Enuaghlvpft-Qrallyetj-Wiycgr er (Trelegy Ellipta) 200-62.5-25 mcg blister with device Discontinued INHALATION Twice daily January 04, 2025 10:12am July 18, 2025 11:20am Start: 01-04-2025 Fluticasone-Um eclidin-Vilanter (Trelegy Ellipta) 200-62.5-25 mcg blister with device Active INHALATION Twice daily January 04, 2025 9:12am Start: 12-10-2024 End: 01-04-2025 Thsgdijxcdu-Vhicpxyvj-Xtwjql er (Trelegy Ellipta) 200-62.5-25 mcg blister with device Discontinued INHALATION December 10, 2024 1:00am January 04, 2025 10:14am Start: 12-10-2024 End: 01-04-2025 Jwjgoxgteql-Wvebcgjer-Tdutpo er (Trelegy Ellipta) 200-62.5-25 mcg blister with [...] in the morning. Active polyethylene glycol 3350 29535 mg powder for oral solution (4 sources) [...] [Asthma with COPD (chronic obstructive pulmonary disease) ([facility])] Onset: 4 08-27-2024 Chronic Chronic obstructive [...] 08-12-2025 Globulin (S) [Mass/Vol] 3.9 g/dL F [facility] Glomerular filtration rate ( GFR) estimation in non- AmericanOrdered By: La Pack on 08-12-2025 GFR/1.73 sq M.predicted among non-blacks MDRD (S/P/Bld) [Vol rate/Area] mL/min/{1.73_m2} >=60 mL/min/1.73 m 2 [facility] Laboratory - Chemistry and C hemistry - challengeOrdered By: La Pack on 08-12-2025 Albumin [Mass/Vol] 3.6 g/dL 3.4-5.0 [facility] ALP [Catalytic activity/Vol] 111 U/L 46-116 [facility] ALT [Catalytic activity/Vol] 29 U/L 14-59 [facility] AST [Catalytic activity/Vol] 15 U/L 15-37 [facility] Bilirubin [Mass/Vol] 0.3 mg/dL 0.2-1.0 [facility] Calcium [Mass/Vol] 9.1 mg/dL 8.5-10.1 [facility] Chloride [Moles/Vol] 102 mmol/L 98-107 [facility] CO2 [Moles/Vol] 34.6 mmol/L High 21.0-32.0 [facility] Creatinine [Mass/Vol] 0.73 mg/dL 0.55-1.02 [facility] Ferritin [Mass/Vol] 93.0 ng/mL 8.0-252.0 [facility] GFR/1.73 sq M.predicted MDRD (S/P/Bld) [Vol rate/Area] mL/min/{1.73_m2} >=60 mL/min/1.73 m 2 [facility] Glucose [Mass/Vol] 107 mg/dL High 74-106 [facility] Potassium [Moles/Vol] 4.2 mmol/L 3.5-5.1 [facility] Protein [Mass/Vol] 7.5 g/dL 6.4-8.2 [facility] Sodium [Moles/Vol] 144 mmol/L 136-145 [facility] Urea nitrogen [Mass/Vol] 27.0 mg/dL High 7.0-18.0 [facility] Urea nitrogen/Creatinine [Mass ratio] 37.0 mg/mg [facility] Serum or plasma albumin/glob ulin mass ratioOrdered By: La Pack on 08-12-2025 Albumin/Globulin [Mass ratio] 0.9 {ratio} [facility] Serum or plasma anion gap de terminationOrdered By: La Pack on 08-12-2025 Anion gap [Moles/Vol] 11.6 mmol/L [facility] ALL CBC WITH AUTO DIFFon BASOPHILS ABSOLUTE AUTO 0.1 [facility] Basophils/100 WBC (Bld) 0.9 % 0.2 - 2.0 % [facility] Eosinophils/100 WBC (Bld) 1.3 % 0.9 - 7.0 % [facility] Erythrocyte distribution width (RBC) [Ratio] 15.4 % High 11.0 - 15.0 % [facility] Hematocrit (Bld) [Volume fraction] 39.8 % 36.0 - 48.0 % [facility] Hemoglobin (Bld) [Mass/Vol] 12 g/dL 12.0 - 16.0 g/dL [facility] IMMATURE GRANULOCYTES ABS AUTO 0.02 [facility] Immature granulocytes/100 WBC (Bld) 0.3 % 0.0 - 0.5 % [facility] Interpretation and review of laboratory results Abnormal [facility] LYMPHOCYTES ABSOLUTE AUTO 0.8 Low [facility] Lymphocytes/100 WBC (Bld) 11.3 % Low 20.5 - 60.0 % [facility] MCH (RBC) [Entitic mass] 27.1 pg 26. 7 - 34.0 pg [facility] MCHC (RBC) [Mass/Vol] 30.2 g/dL 29.9 - 35.2 g/dL [facility] MCV (RBC) [Entitic vol] 89.8 fL 81.0 - 99.0 fL [facility] MONOCYTES ABSOLUTE AUTO 0.5 [facility] Monocytes/100 WBC (Bld) 7 % 1.7 - 12.0 % [facility] NEUTROPHILS ABSOLUTE AUTO 5.5 [facility] Neutrophils/100 WBC (Bld) 79.2 % High 43.0 - 75.0 % [facility] Platelet mean volume (Bld) [Entitic vol] 8.9 fL Low 9.5 - 13.5 fL [facility] TBH EO # 0.1 [facility] TB PLT 294 [facility] TB RBC 4.43 [facility] TB WBC 7 [facility] ALL THYROID STIM HORMONEon 0 5-12-2025 TSH Qn 2.663 m[IU]/L [facility] ALL THYROXINE (T4) FREEon Free T4 [Mass/Vol] 0.93 ng/dL 0.76 - 1. 46 ng/dL [facility] No Panel Informationon 03-25 [facility] NM ORLY PERF SPECT REST STRon 02-21-2025 [place] [address] Nuclear Medicine Report Signed Patient: JULIAN MONTAÑO MR#: [id number] : 1955 Acct:[id number] Age/Sex: 69 / F ADM Date: 02/20/25 Loc: NM Attending Dr: Krissy Cortez M.D. Ordering Physician: Krissy Cortez M.D. Date of Service: 02/20/25 Procedure(s): NM orly perf SPECT rest str Accession Number(s): [id number] cc: La Pack SECURITY BUSINESS ANALYST; Krissy Cortez M.D. Patient Name: JULIAN MONTAÑO MR#: [id number] : 1955 Exam Date: 02/20/2025 Ordering Doctor: [...] the study was pending per attending physician [facility]. For more details, please see separate cardiac [...] Signed By: 02/21/25 143 DD/ 30 TD/TT: [employer] Repair Mechanic: [facility] Radiology, Radiologist, MD - 02/21/2025 [place] [address] Nuclear Medicine Report Signed Patient: JULIAN MONTAÑO MR#: [id number] : 1955 Acct:[id number] Age/Sex: 69 / F ADM Date: 02/20/25 Loc: NM Attending Dr: Krissy Cortez M.D. Ordering Physician: Krissy Cortez M.D. Date of Service: 02/20/25 Procedure(s): NM orly perf SPECT rest str Accession Number(s): [id number] cc: La Pack SECURITY BUSINESS ANALYST; Krissy Cortez M.D. Patient Name: JULIAN MONTAÑO MR#: [id number] : 1955 Exam Date: 02/20/2025 Ordering Doctor: [...] the study was pending per attending physician [facility]. For more details, please see separate cardiac [...] Signed By: 02/21/25 143 DD/ 143 TD/TT: [employer] Repair Mechanic: [facility] Radiology Study observation (narrative) [facility] NM ORLY PERF SPECT REST STROr dered By: Radiologist Radiology on 02-21-2025 [facility] Work Phone: ALL CBC WITH AUTO DIFFon BASOPHILS ABSOLUTE AUTO 0.1 [facility] Basophils/100 WBC (Bld) 0.6 % 0.2 - 2.0 % [facility] Eosinophils/100 WBC (Bld) 1.5 % 0.9 - 7.0 % [facility] Erythrocyte distribution width (RBC) [Ratio] 15.9 % High 11.0 - 15.0 % [facility] Hematocrit (Bld) [Volume fraction] 36.1 % 36.0 - 48.0 % [facility] Hemoglobin (Bld) [Mass/Vol] 11.6 g/dL Low 12.0 - 16.0 g/dL [facility] IMMATURE GRANULOCYTES ABS AUTO 0.04 High [facility] Immature granulocytes/100 WBC (Bld) 0.4 % 0.0 - 0.5 % [facility] Interpretation and review of laboratory results Abnormal [facility] LYMPHOCYTES ABSOLUTE AUTO 1.6 [facility] Lymphocytes/100 WBC (Bld) 15.8 % Low 20.5 - 60.0 % [facility] MCH (RBC) [Entitic mass] 28.7 pg 26. 7 - 34.0 pg [facility] MCHC (RBC) [Mass/Vol] 32.1 g/dL 29.9 - 35.2 g/dL [facility] MCV (RBC) [Entitic vol] 89.4 fL 81.0 - 99.0 fL [facility] MONOCYTES ABSOLUTE AUTO 1 High [facility] Monocytes/100 WBC (Bld) 9.6 % 1.7 - 12.0 % [facility] NEUTROPHILS ABSOLUTE AUTO 7.4 High [facility] Neutrophils/100 WBC (Bld) 72.1 % 43.0 - 75.0 % [facility] Platelet mean volume (Bld) [Entitic vol] 9.1 fL Low 9.5 - 13.5 fL [facility] TBH EO # 0.2 [facility] TB PLT 298 [facility] TB RBC 4.04 Low [facility] TB WBC 10.2 [facility] MM TOMOSYNTHESIS SCREENING B Ion 02-18-2025 [place] [address] Mammography Report Signed Patient: JULIAN MONTAÑO MR#: [id number] : 1955 Acct:[id number] Age/Sex: 69 / F ADM Date: 02/18/25 Loc: MAMMO Attending Dr: La Pack NP Ordering Physician: La Pack NP Results: Date of Service: 02/18/25 Follow Up: Procedure(s): MM tomosynthesis screening BI Accession Number(s): [id number] cc: La Pack NP Patient Name: JULIAN MONTAÑO MR#: [id number] : 1955 Exam Date: 02/18/2025 Ordering Doctor: RISHABH Pack CNP RADIOLOGY REPORT PROCEDURE: MM TOMOSYNTHESIS SCREENING BI COMPARISON: MM TOMOSYNTHESIS SCREENING BI, 01/16/2024. MG MAMM SCREEN 3D [facility] CAD, 08/11/2021. MG MAMM SCREEN [facility] W CAD, 07/04/2020. MG MAMM [facility] SCRN W CAD DIG, 05/02/2015. INDICATIONS: Screening for malignant neoplasm Calculator Name [facility] Breast Cancer Risk Assessment Tool 5 Year Breast Cancer Risk 1.10% Lifetime Breast Cancer Risk 3.20% Personal Breast Cancer No Personal Ovarian Cancer No Treatments None Family Cancers Mother with uterine cancer at age 55. LOCATION: The [facility] BREAST COMPOSITION: The breasts are almost [...] Signed By: 02/18/25 1554 DD/ 1553 TD/TT: [employer] Rep[employer] Mechanic: [facility] Radiology, Radiologist, MD - 02/18/2025 [place] [address] Mammography Report Signed Patient: JULIAN MONTAÑO MR#: [id number] : 1955 Acct:[id number] Age/Sex: 69 / F ADM Date: 02/18/25 Loc: MAMMO Attending Dr: La Pack NP Ordering Physician: La Pack NP Results: Date of Service: 02/18/25 Follow Up: Procedure(s): MM tomosynthesis screening BI Accession Number(s): [id number] cc: La Pack NP Patient Name: JULIAN MONTAÑO MR#: [id number] : 1955 Exam Date: 02/18/2025 Ordering Doctor: [...] uterine cancer at age 53. LOCATION: The [facility] BREAST COMPOSITION: The breasts are almost [...] Signed By: 02/18/25 1554 DD/ 1553 TD/TT: [employer] Repair Mechanic: [facility] Radiology Study observation (narrative) [facility] MM TOMOSYNTHESIS SCREENING B IOrdered By: Radiologist Radiology on 02-18-2025 [facility] Work Phone: Alanine aminotransferase [En zymatic activity/volume] in Serum or PlasmaOrdered By: Daniel Garza on 12-14-2024 ALT [Catalytic activity/Vol] Alanine aminotransferase [Enzymatic activity/volume] in Serum or Plasma High 7-52 [facility] Albumin [Mass/volume] in Ser um or Plasma by Bromocresol green (BCG) dye binding methoOrdered By: Daniel Garza on 12-14-2024 Albumin BCG dye [Mass/Vol] Albumin [Mass/volume] in Serum or Plasma by Bromocresol green (BCG) dye binding metho 3.5-5.7 [facility] Alkaline phosphatase [Enzyma tic activity/volume] in Serum or PlasmaOrdered By: Daniel Garza on 12-14-2024 ALP [Catalytic activity/Vol] Alkaline phosphatase [Enzymatic activity/volume] in Serum or Plasma 34-104 [facility] Aspartate aminotransferase [ Enzymatic activity/volume] in Serum or PlasmaOrdered By: Daniel Garza on 12-14-2024 AST [Catalytic activity/Vol] Aspartate aminotransferase [Enzymatic activity/volume] in Serum or Plasma 13-39 [facility] Basophils Auto (Bld) [#/Vol] Ordered By: Daniel Garza on 12-14-2024 Basophils (Bld) [#/Vol] Automated basoph il count 0.0-0.2 [facility] Basophils/100 WBC Auto (Bld) Ordered By: Daniel Garza on 12-14-2024 Basophils/100 WBC (Bld) Automated basophil % . [facility] Bilirubin.total [Mass/volume ] in Serum or PlasmaOrdered By: Daniel Garza on 12-14-2024 Bilirubin [Mass/Vol] Bilirubin.total [Mass/volume] in Serum or Plasma 0.3-1.0 [facility] Calcium [Mass/volume] in Ser um or PlasmaOrdered By: Daniel Garza on 12-14-2024 Calcium [Mass/Vol] Calcium [Mass/volume ] in Serum or Plasma 8.6-10.3 [facility] Carbon dioxide, total [Moles /volume] in Serum or PlasmaOrdered By: Daniel Garza on 12-14-2024 CO2 [Moles/Vol] Carbon dioxide, tota l [Moles/volume] in Serum or Plasma 21.0-31.0 [facility] Chloride [Moles/volume] in S idris or PlasmaOrdered By: Daniel Garza on 12-14-2024 Chloride [Moles/Vol] Chloride [Moles/volume] in Serum or Plasma Low 98-107 [facility] Complete Blood Count Auto Di ffon 12-14-2024 Basophils (Bld) [#/Vol] 0.0 10*3/uL Normal 0.0-0.2 [facility] Comment on above: Result Comment: PERF ORMED BY: [facility] [address] [place] [address] PATHOLOGIST GUEST RELATIONS RECEPTIONIST MANDY ACUÑA M.D. Performed By: #### C MP, CBC ####[facility] [id number] [place] [address] [facility] Basophils/100 WBC (Bld) 0.2 % Normal . [facility] Comment on above: Performed By: #### C MP, CBC ####[address] Eosinophils (Bld) [#/Vol] 0.0 10*3/uL Normal 0.0-0.45 [facility] Comment on above: Performed By: #### C MP, CBC ####[address] Eosinophils/100 WBC (Bld) 0.0 % Normal . [facility] Comment on above: Performed By: #### C MP, CBC ####[address] Erythrocyte distribution width (RBC) [Ratio] 15.3 % Normal 11.9-15.3 [facility] Comment on above: Performed By: #### C MP, CBC ####[address] Hematocrit (Bld) [Volume fraction] 40.4 % Normal 34.0-46.4 [facility] Comment on above: Performed By: #### C MP, CBC ####[address] Hemoglobin (Bld) [Mass/Vol] 13.4 g/dL Normal 11.8-15.4 [facility] Comment on above: Performed By: #### C MP, CBC ####[address] Lymphocytes (Bld) [#/Vol] 0.6 10*3/uL Low 1.00-4.8 [facility] Comment on above: Performed By: #### C MP, CBC ####[address] Lymphocytes/100 WBC (Bld) 7.0 % Normal . [facility] Comment on above: Performed By: #### C MP, CBC ####[address] MCH (RBC) [Entitic mass] 28.5 pg Normal 24.7-34.3 [facility] Comment on above: Performed By: #### C MP, CBC ####[address] MCV (RBC) [Entitic vol] 85.6 fL Normal 80-100 [facility] Comment on above: Performed By: #### C MP, CBC ####[address] Mean Corpuscular HGB Conc 33.3 g/dL Normal 32.0-35.0 [facility] Comment on above: Performed By: #### C MP, CBC ####[address] Monocytes (Bld) [#/Vol] 0.7 10*3/uL Normal 0.0-0.8 [facility] Comment on above: Performed By: #### C MP, CBC ####[address] Monocytes/100 WBC (Bld) 8.2 % Normal . T [facility] Comment on above: Performed By: #### C MP, CBC ####[address] Neutrophils (Bld) [#/Vol] 7.2 10*3/uL Normal 1.8-7.7 [facility] Comment on above: Performed By: #### C MP, CBC ####[address] Neutrophils/100 WBC (Bld) 84.6 % Normal . [facility] Comment on above: Performed By: #### C MP, CBC ####[address] NRBC% 0.1 /100{WBC} Normal 0-0.5 [facility] Comment on above: Performed By: #### C MP, CBC ####[address] Platelet mean volume (Bld) [Entitic vol] 7.4 fL Normal 6.3-10.7 [facility] Comment on above: Performed By: #### C MP, CBC ####[place] [id number] [facility] Platelets (Bld) [#/Vol] 276 10*3/uL Normal 150-450 [facility] Comment on above: Performed By: #### C MP, CBC ####[address] RBC (Bld) [#/Vol] 4.72 10*6/uL Normal 3.60-5.00 [facility] Comment on above: Performed By: #### C MP, CBC ####[place] [id number] [facility] WBC (Bld) [#/Vol] 8.6 10*3/uL Normal 3.8-11.6 [facility] Comment on above: Performed By: #### C MP, CBC ####[address] Comprehensive Metabolic Pane ana 12-14-2024 Albumin [Mass/Vol] 3.7 g/dL Normal 3.5-5.7 [facility] Comment on above: Performed By: #### C MP, CBC ####[address] Albumin/Globulin [Mass ratio] 1.2 {ratio} Normal [facility] Comment on above: Performed By: #### C MP, CBC ####[place] [id number] [facility] ALP [Catalytic activity/Vol] 84 U/L Normal 34-104 [facility] Comment on above: Performed By: #### C MP, CBC ####[place] [id number] [facility] ALT [Catalytic activity/Vol] 55 U/L High 7-52 [facility] Comment on above: Performed By: #### C MP, CBC ####[address] Anion gap [Moles/Vol] 12.7 mmol/L Normal 6.0-15.0 e [facility] Comment on above: Performed By: #### C MP, CBC ####[place] [id number] [facility] AST [Catalytic activity/Vol] 29 U/L Normal 13-39 [facility] Comment on above: Performed By: #### C MP, CBC ####[place] [id number] [facility] Bilirubin [Mass/Vol] 0.6 mg/dL Normal 0.3-1.0 [facility] Comment on above: Performed By: #### C MP, CBC ####[place] [id number] [facility] Calcium [Mass/Vol] 9.2 mg/dL Normal 8.6-10.3 [facility] Comment on above: Performed By: #### C MP, CBC ####[address] Chloride [Moles/Vol] 93 mmol/L Low 98-107 [facility] Comment on above: Performed By: #### C MP, CBC ####[place] [id number] [facility] CO2 [Moles/Vol] 29.4 mmol/L Normal 21.0-31.0 [facility] Comment on above: Performed By: #### C MP, CBC ####[place] [id number] [facility] Creatinine [Mass/Vol] 0.81 mg/dL Normal 0.60-1.20 [facility] Comment on above: Performed By: #### C MP, CBC ####[place] [id number] [facility] Creatinine Clr Calc Pharmacy 66.51 Normal [facility] Comment on above: Result Comment: PERF ORMED BY: [facility] [address] [facility] [place] [id number] PATHOLOGIST GUEST RELATIONS RECEPTIONIST MANDY ACUÑA M.D. Performed By: #### C MP, CBC ####[place] [id number] [facility] GFR/1.73 sq M.predicted MDRD (S/P/Bld) [Vol rate/Area] mL/min/{1.73_m2} Normal [facility] Comment on above: Performed By: #### C MP, CBC ####[place] [id number] [facility] Globulin (S) [Mass/Vol] 3.2 g/dL Normal T [facility] Comment on above: Performed By: #### C MP, CBC ####[place] [id number] [facility] Glucose [Mass/Vol] 145 mg/dL High 70-100 [facility] Comment on above: Result Comment: [facility] Glucose Reference Range is dependent on time and content of last meal. Glucose of more than 200 mg/dL in a nonstressed, ambulatory subject supports the diagnosis of Diabetes Mellitus. ADA recommended reference range Performed By: #### C MP, CBC ####[place] [id number] [facility] Potassium [Moles/Vol] 4.1 mmol/L Normal 3.5-5.1 [facility] Comment on above: Performed By: #### C MP, CBC ####[place] [id number] [facility] Protein [Mass/Vol] 6.9 g/dL Normal 6.4-8.9 [facility] Comment on above: Performed By: #### C MP, CBC ####[place] [id number] [facility] Sodium [Moles/Vol] 131 mmol/L Low 136-145 [facility] Comment on above: Performed By: #### C MP, CBC ####[place] [id number] [facility] Urea nitrogen [Mass/Vol] 24 mg/dL Normal 7-25 [facility] Comment on above: Performed By: #### C MP, CBC ####[place] [id number] [facility] Creatinine [Mass/volume] in Serum or PlasmaOrdered By: Daniel Garza on 12-14-2024 Creatinine [Mass/Vol] Creatinine [Mass/volume] in Serum or Plasma 0.60-1.20 [facility] Eosinophils Auto (Bld) [#/Vo l]Ordered By: Daniel Garza on 12-14-2024 Eosinophils (Bld) [#/Vol] Automated eosinophil count 0.0-0.45 [facility] Eosinophils/100 WBC Auto (Bl d)Ordered By: Daniel Garza on 12-14-2024 Eosinophils/100 WBC (Bld) Automated eosinophil % . [facility] Erythrocyte distribution wid th Auto (RBC) [Ratio]Ordered By: Daniel Garza on 12-14-2024 Erythrocyte distribution width (RBC) [Ratio] Erythrocyte distribution width [Ratio] by Automated count 11.9-15.3 [facility] Globulin Calc (S) [Mass/Vol] Ordered By: Daniel Garza on 12-14-2024 Globulin (S) [Mass/Vol] Serum globulin measurement by calculation (mass/volume) [facility] Glucose Glucometer (BldC) [M ass/Vol]Ordered By: Daniel Garza on 12-14-2024 Glucose [Mass/Vol] Capillary blood glucose measurement by glucometer (mass/volume) [facility] Comment on above: Random Glucose Refer ence Range is dependent on time and content of last meal. Glucose of more than 200 mg/dL in a nonstressed, ambulatory subject supports the diagnosis of Diabetes Mellitus. Glucose Poct Glucometerson 0 12-14-2024 Glucose [Mass/Vol] 236 mg/dL Normal [facility] Comment on above: Result Comment: [facility] Glucose Reference Range is dependent on time and content of last meal. Glucose of more than 200 mg/dL in a nonstressed, ambulatory subject supports the diagnosis of Diabetes Mellitus. PERFORMED BY: [facility] [address] [place] [address] PATHOLOGIST GUEST RELATIONS RECEPTIONIST MANDY ACUÑA M.D. Performed By: #### A BG #### Point of Care testing , Glucose [Mass/Vol] 154 mg/dL Normal [facility] Comment on above: Result Comment: [facility] Glucose Reference Range is dependent on time and content of last meal. Glucose of more than 200 mg/dL in a nonstressed, ambulatory subject supports the diagnosis of Diabetes Mellitus. PERFORMED BY: [facility] [address] [place] [address] PATHOLOGIST GUEST RELATIONS RECEPTIONIST MANDY ACUÑA M.D. Performed By: #### G LULS #### Point of Care testing , Glucose [Mass/Vol] 105 mg/dL Normal [facility] Comment on above: Result Comment: [place] [facility] Glucose Reference Range is dependent on time and content of last meal. Glucose of more than 200 mg/dL in a nonstressed, ambulatory subject supports the diagnosis of Diabetes Mellitus. PERFORMED BY: [facility] [address] [place] [address] PATHOLOGIST GUEST RELATIONS RECEPTIONIST MANDY ACUÑA M.D. Performed By: #### A BG #### Point of Care testing , Glucose [Mass/volume] in Ser um or PlasmaOrdered By: Daniel Garza on 12-14-2024 Glucose [Mass/Vol] Glucose [Mass/volume ] in Serum or Plasma High 70-100 [facility] Comment on above: ADA recommended refe rence rangeRandom Glucose Reference Range is dependent on time and content of last meal. Glucose of more than 200 mg/dL in a nonstressed, ambulatory subject supports the diagnosis of Diabetes Mellitus. Hematocrit Auto (Bld) [Volum e fraction]Ordered By: Daniel Garza on 12-14-2024 Hematocrit (Bld) [Volume fraction] Hematocrit [Volume Fraction] of Blood by Automated count 34.0-46.4 [facility] Hemoglobin [Mass/volume] in BloodOrdered By: Daniel Garza on 12-14-2024 Hemoglobin (Bld) [Mass/Vol] Hemoglobin [Mass/volume] in Blood 11.8-15.4 [facility] Leukocytes [#/volume] correc brendan for nucleated erythrocytes in Blood by Automated counOrdered By: Daniel Garza on 12-14-2024 WBC corrected for nucl RBC Auto (Bld) [#/Vol] Leukocytes [#/volume] corrected for nucleated erythrocytes in Blood by Automated coun 3.8-11.6 [facility] Lymphocytes Auto (Bld) [#/Vo l]Ordered By: Daniel Garza on 12-14-2024 Lymphocytes (Bld) [#/Vol] Lymphocytes [#/volume] in Blood by Automated count Low 1.00-4.8 [facility] Lymphocytes/100 WBC Auto (Bl d)Ordered By: Daniel Garza on 12-14-2024 Lymphocytes/100 WBC (Bld) Lymphocytes/100 leukocytes in Blood by Automated count . [facility] MCH Auto (RBC) [Entitic mass ]Ordered By: Daniel Garza on 12-14-2024 MCH (RBC) [Entitic mass] MCH [Entitic ma ss] by Automated count 24.7-34.3 [facility] MCHC Auto (RBC) [Mass/Vol]Or dered By: Daniel Garza on 12-14-2024 MCHC (RBC) [Mass/Vol] MCHC [Mass/volume] by Automated count 32.0-35.0 [facility] MCV Auto (RBC) [Entitic vol] Ordered By: Daniel Garza on 12-14-2024 MCV (RBC) [Entitic vol] MCV [Entitic vol ume] by Automated count 80-100 [facility] Monocytes Auto (Bld) [#/Vol] Ordered By: Daniel Garza on 12-14-2024 Monocytes (Bld) [#/Vol] Automated blood monocyte count 0.0-0.8 [facility] Monocytes/100 WBC Auto (Bld) Ordered By: Daniel Garza on 12-14-2024 Monocytes/100 WBC (Bld) Automated monocyte % . [facility] Neutrophils Auto (Bld) [#/Vo l]Ordered By: Daniel Garza on 12-14-2024 Neutrophils (Bld) [#/Vol] Neutrophils [#/volume] in Blood by Automated count 1.8-7.7 [facility] Neutrophils/100 WBC Auto (Bl d)Ordered By: Daniel Garza on 12-14-2024 Neutrophils/100 WBC (Bld) Automated neutrophil % . [facility] No Panel InformationOrdered By: Daniel Garza on 12-14-2024 Estimated GFR (CKD-EPI) > 60.0 mL/Min [facility] Creatinine Clearance (Chem 66.51 [facility] Nucleated erythrocytes [Pres ence] in Blood by Automated countOrdered By: Daniel Garza on 12-14-2024 Nucleated RBC Auto Ql (Bld) Nucleated erythrocytes [Presence] in Blood by Automated count 0-0.5 [facility] Platelet mean volume Auto (B ld) [Entitic vol]Ordered By: Daniel Garza on 12-14-2024 Platelet mean volume (Bld) [Entitic vol] Platelet mean volume [Entitic volume] in Blood by Automated count 6.3-10.7 [facility] Platelets Auto (Bld) [#/Vol] Ordered By: Daniel Garza on 12-14-2024 Platelets (Bld) [#/Vol] Platelets [#/vol ume] in Blood by Automated count 150-450 [facility] Potassium [Moles/volume] in Serum or PlasmaOrdered By: Daniel Garza on 12-14-2024 Potassium [Moles/Vol] Potassium [Moles/volume] in Serum or Plasma 3.5-5.1 [facility] Protein [Mass/volume] in Ser um or PlasmaOrdered By: Daniel Garza on 12-14-2024 Protein [Mass/Vol] Protein [Mass/volume ] in Serum or Plasma 6.4-8.9 [facility] RBC Auto (Bld) [#/Vol]Ordere d By: Daniel Garza on 12-14-2024 RBC (Bld) [#/Vol] Erythrocytes [#/volume] in Blood by Automated count 3.60-5.00 [facility] Serum or plasma albumin/glob ulin mass ratioOrdered By: Daniel Garza on 12-14-2024 Albumin/Globulin [Mass ratio] Serum or plasma albumin/globulin mass ratio [facility] Serum or plasma anion gap de terminationOrdered By: Daniel Garza on 12-14-2024 Anion gap [Moles/Vol] Serum or plasma an ion gap determination 6.0-15.0 [facility] Sodium [Moles/volume] in Ser um or PlasmaOrdered By: Daniel Garza on 12-14-2024 Sodium [Moles/Vol] Sodium [Moles/volume ] in Serum or Plasma Low 136-145 [facility] Urea nitrogen [Mass/volume] in Serum or PlasmaOrdered By: Daniel Garza on 12-14-2024 Urea nitrogen [Mass/Vol] Urea nitrogen [Mass/volume] in Serum or Plasma 06-07 [facility] WBC Auto (Bld) [#/Vol]Ordere d By: Daniel Kayla on 12-14-2024 WBC (Bld) [#/Vol] Leukocytes [#/volume ] in Blood by Automated count 3.8-11.6 [facility] Complete Blood Count Auto Di ffon 12-13-2024 Basophils (Bld) [#/Vol] 0.0 10*3/uL Normal 0.0-0.2 [facility] Comment on above: Result Comment: PERF ORMED BY: [facility] [address] [place] [address] PATHOLOGIST GUEST RELATIONS RECEPTIONIST MANDY ACÑUA M.D. Performed By: #### C BC, CMP ####[address] Basophils/100 WBC (Bld) 0.1 % Normal . T abilio [facility] Comment on above: Performed By: #### C BC, CMP ####[address] Eosinophils (Bld) [#/Vol] 0.0 10*3/uL Normal 0.0-0.45 [facility] Comment on above: Performed By: #### C BC, CMP ####[address] Eosinophils/100 WBC (Bld) 0.0 % Normal . [facility] Comment on above: Performed By: #### C BC, CMP ####[address] Erythrocyte distribution width (RBC) [Ratio] 15.4 % High 11.9-15.3 [facility] Comment on above: Performed By: #### C BC, CMP ####[address] Hematocrit (Bld) [Volume fraction] 40.5 % Normal 34.0-46.4 [facility] Comment on above: Performed By: #### C BC, CMP ####[address] Hemoglobin (Bld) [Mass/Vol] 13.4 g/dL Normal 11.8-15.4 [facility] Comment on above: Performed By: #### C BC, CMP ####[address] Lymphocytes (Bld) [#/Vol] 0.7 10*3/uL Low 1.00-4.8 [facility] Comment on above: Performed By: #### C JOBY, CMP ####[address] Lymphocytes/100 WBC (Bld) 6.4 % Normal . [facility] Comment on above: Performed By: #### C JOBY, CMP ####[address] MCH (RBC) [Entitic mass] 28.5 pg Normal 24.7-34.3 [facility] Comment on above: Performed By: #### C JOBY, CMP ####[address] MCV (RBC) [Entitic vol] 86.4 fL Normal 80-100 [facility] Comment on above: Performed By: #### C JOBY, CMP ####[address] Mean Corpuscular HGB Conc 33.0 g/dL Normal 32.0-35.0 [facility] Comment on above: Performed By: #### C BC, CMP ####[address] Monocytes (Bld) [#/Vol] 0.7 10*3/uL Normal 0.0-0.8 [facility] Comment on above: Performed By: #### C BC, CMP ####[address] Monocytes/100 WBC (Bld) 6.5 % Normal . [facility] Comment on above: Performed By: #### C JOBY, CMP ####[address] [address] [facility] Neutrophils (Bld) [#/Vol] 9.3 10*3/uL High 1.8-7.7 [facility] Comment on above: Performed By: #### C BC, CMP ####[address] [address] [facility] Neutrophils/100 WBC (Bld) 87.0 % Normal . [facility] Comment on above: Performed By: #### C JOBY, CMP ####[address] [address] [facility] NRBC% 0.1 /100{WBC} Normal 0-0.5 [facility] Comment on above: Performed By: #### C JOBY, CMP ####[address] [address] [facility] Platelet mean volume (Bld) [Entitic vol] 7.3 fL Normal 6.3-10.7 [facility] Comment on above: Performed By: #### C JOBY, CMP ####[address] [address] [facility] Platelets (Bld) [#/Vol] 302 10*3/uL Normal 150-450 [facility] Comment on above: Performed By: #### C JOBY, CMP ####[address] [address] [facility] RBC (Bld) [#/Vol] 4.68 10*6/uL Normal 3.60-5.00 [facility] Comment on above: Performed By: #### C JOBY, CMP ####[address] [address] [facility] WBC (Bld) [#/Vol] 10.6 10*3/uL Normal 3.8-11.6 [facility] Comment on above: Performed By: #### C BC, CMP ####[address] [address] [facility] Comprehensive Metabolic Pane ana 12-13-2024 Albumin [Mass/Vol] 3.8 g/dL Normal 3.5-5.7 [facility] Comment on above: Performed By: #### C BC, CMP ####[address] [address] [facility] Albumin/Globulin [Mass ratio] 1.2 {ratio} Normal [facility] Comment on above: Performed By: #### C BC, CMP ####[address] [address] [facility] ALP [Catalytic activity/Vol] 84 U/L Normal 34-104 [facility] Comment on above: Performed By: #### C BC, CMP ####[address] [address] [facility] ALT [Catalytic activity/Vol] 65 U/L High 7-52 [facility] Comment on above: Performed By: #### C BC, CMP ####[address] [address] [facility] Anion gap [Moles/Vol] 14.3 mmol/L Normal 6.0-15.0 [facility] Comment on above: Performed By: #### C BC, CMP ####[address] [address] [facility] AST [Catalytic activity/Vol] 38 U/L Normal 13-39 [facility] Comment on above: Performed By: #### C BC, CMP ####[address] [address] [facility] Bilirubin [Mass/Vol] 0.5 mg/dL Normal 0.3-1.0 [facility] Comment on above: Performed By: #### C BC, CMP ####[address] [address] [facility] Calcium [Mass/Vol] 8.9 mg/dL Normal 8.6-10.3 [facility] Comment on above: Performed By: #### C BC, CMP ####[address] [address] [facility] Chloride [Moles/Vol] 95 mmol/L Low 98-107 [facility] Comment on above: Performed By: #### C BC, CMP ####[place] [address] CO2 [Moles/Vol] 30.8 mmol/L Normal 21.0-31.0 [facility] Comment on above: Performed By: #### C BC, CMP ####[place] [id number] [facility] Creatinine [Mass/Vol] 0.99 mg/dL Normal 0.60-1.20 [facility] Comment on above: Performed By: #### C BC, CMP ####[address] Creatinine Clr Calc Pharmacy 54.42 Normal [facility] Comment on above: Result Comment: PERF ORMED BY: [facility] [address] [place] [address] PATHOLOGIST GUEST RELATIONS RECEPTIONIST MANDY ACUÑA M.D. Performed By: #### C BC, CMP ####[address] GFR/1.73 sq M.predicted MDRD (S/P/Bld) [Vol rate/Area] mL/min/{1.73_m2} Normal [facility] Comment on above: Performed By: #### C JOBY, CMP ####[place] [id number] [facility] Globulin (S) [Mass/Vol] 3.1 g/dL Normal T he [facility] Comment on above: Performed By: #### C BC, CMP ####[address] Glucose [Mass/Vol] 97 mg/dL Normal 70-100 [facility] Comment on above: Result Comment: [place] Glucose Reference Range is dependent on time and content of last meal. Glucose of more than 200 mg/dL in a nonstressed, ambulatory subject supports the diagnosis of Diabetes Mellitus. ADA recommended reference range Performed By: #### C BC, CMP ####[place] [id number] [facility] Potassium [Moles/Vol] 4.1 mmol/L Normal 3.5-5.1 [facility] Comment on above: Performed By: #### C BC, CMP ####[place] [address] [place] [address] [facility] Protein [Mass/Vol] 6.9 g/dL Normal 6.4-8.9 [facility] Comment on above: Performed By: #### C BC, CMP ####[place] [address] [place] [address] [facility] Sodium [Moles/Vol] 136 mmol/L Normal 136-145 [facility] Comment on above: Performed By: #### C BC, CMP ####[place] [address] [place] [address] [facility] Urea nitrogen [Mass/Vol] 22 mg/dL Normal 7-25 [facility] Comment on above: Performed By: #### C BC, CMP ####[place] [address] [place] [id number] [facility] Glucose Poct Glucometerson 0 12-13-2024 Commemt1 Glu2: Cleaned Meter Normal [facility] Comment on above: Result Comment: PERF ORMED BY: [facility] [address] [address] [place] [id number] PATHOLOGIST GUEST RELATIONS RECEPTIONIST MANDY ACUÑA M.D. Performed By: #### G LULS ####Point of Care testing, Glucose [Mass/Vol] 277 mg/dL Normal [facility] Comment on above: Result Comment: [place] Glucose Reference Range is dependent on time and content of last meal. Glucose of more than 200 mg/dL in a nonstressed, ambulatory subject supports the diagnosis of Diabetes Mellitus. Performed By: #### G LULS ####Point of Care testing, Glucose [Mass/Vol] 141 mg/dL Normal [facility] Comment on above: Result Comment: [place] Glucose Reference Range is dependent on time and content of last meal. Glucose of more than 200 mg/dL in a nonstressed, ambulatory subject supports the diagnosis of Diabetes Mellitus. PERFORMED BY: [facility] [address] [address] [place] [id number] PATHOLOGIST GUEST RELATIONS RECEPTIONIST MANDY ACUÑA M.D. Performed By: #### G LULS ####Point of Care testing, Glucose [Mass/Vol] 150 mg/dL Normal [facility] Comment on above: Result Comment: [facility] Glucose Reference Range is dependent on time and content of last meal. Glucose of more than 200 mg/dL in a nonstressed, ambulatory subject supports the diagnosis of Diabetes Mellitus. PERFORMED BY: [place] [address] PATHOLOGIST GUEST RELATIONS RECEPTIONIST MANDY ACUÑA M.D. Performed By: #### G LULS #### Point of Care testing , Glucose [Mass/Vol] 117 mg/dL Normal [facility] Comment on above: Result Comment: [facility] Glucose Reference Range is dependent on time and content of last meal. Glucose of more than 200 mg/dL in a nonstressed, ambulatory subject supports the diagnosis of Diabetes Mellitus. PERFORMED BY: [address] [address] PATHOLOGIST GUEST RELATIONS RECEPTIONIST MANDY ACUÑA M.D. Performed By: #### G LULS ####Point of Care testing, No Panel InformationOrdered By: Daniel Garza on 12-13-2024 Bedside Glucose Comment Glu2: cleaned meter [facility] Complete Blood Count Auto Di ffon 12-12-2024 Basophils (Bld) [#/Vol] 0.0 10*3/uL Normal 0.0-0.2 [facility] Comment on above: Result Comment: PERF ORMED BY: [address] [address] PATHOLOGIST GUEST RELATIONS RECEPTIONIST MANDY ACUÑA M.D. Performed By: #### A BG #### Point of Care testing , Basophils/100 WBC (Bld) 0.0 % Normal . T [facility] Comment on above: Performed By: #### A BG #### Point of Care testing , Eosinophils (Bld) [#/Vol] 0.0 10*3/uL Normal 0.0-0.45 [facility] Comment on above: Performed By: #### A BG #### Point of Care testing , Eosinophils/100 WBC (Bld) 0.0 % Normal . [facility] Comment on above: Performed By: #### A BG #### Point of Care testing , Erythrocyte distribution width (RBC) [Ratio] 15.8 % High 11.9-15.3 [facility] Comment on above: Performed By: #### A BG #### Point of Care testing , Hematocrit (Bld) [Volume fraction] 34.5 % Normal 34.0-46.4 [facility] Comment on above: Performed By: #### A BG #### Point of Care testing , Hemoglobin (Bld) [Mass/Vol] 11.3 g/dL Low 11.8-15.4 [facility] Comment on above: Performed By: #### A BG #### Point of Care testing , Lymphocytes (Bld) [#/Vol] 0.3 10*3/uL Low 1.00-4.8 [facility] Comment on above: Performed By: #### A BG #### Point of Care testing , Lymphocytes/100 WBC (Bld) 2.2 % Normal . [facility] Comment on above: Performed By: #### A BG #### Point of Care testing , MCH (RBC) [Entitic mass] 28.0 pg Normal 24.7-34.3 [facility] Comment on above: Performed By: #### A BG #### Point of Care testing , MCV (RBC) [Entitic vol] 85.4 fL Normal 80-100 [facility] Comment on above: Performed By: #### A BG #### Point of Care testing , Mean Corpuscular HGB Conc 32.8 g/dL Normal 32.0-35.0 [facility] Comment on above: Performed By: #### A BG #### Point of Care testing , Monocytes (Bld) [#/Vol] 0.6 10*3/uL Normal 0.0-0.8 [facility] Comment on above: Performed By: #### A BG #### Point of Care testing , Monocytes/100 WBC (Bld) 4.8 % Normal . [facility] Comment on above: Performed By: #### A BG #### Point of Care testing , Neutrophils (Bld) [#/Vol] 10.8 10*3/uL High 1.8-7.7 [facility] Comment on above: Performed By: #### A BG #### Point of Care testing , Neutrophils/100 WBC (Bld) 93.0 % Normal . [facility] Comment on above: Performed By: #### A BG #### Point of Care testing , NRBC% 0.0 /100{WBC} Normal 0-0.5 [facility] Comment on above: Performed By: #### A BG #### Point of Care testing , Platelet mean volume (Bld) [Entitic vol] 7.4 fL Normal 6.3-10.7 [facility] Comment on above: Performed By: #### A BG #### Point of Care testing , Platelets (Bld) [#/Vol] 282 10*3/uL Normal 150-450 [facility] Comment on above: Performed By: #### A BG #### Point of Care testing , RBC (Bld) [#/Vol] 4.04 10*6/uL Normal 3.60-5.00 [facility] Comment on above: Performed By: #### A BG #### Point of Care testing , WBC (Bld) [#/Vol] 11.6 10*3/uL Normal 3.8-11.6 [facility] Comment on above: Performed By: #### A BG #### Point of Care testing , Comprehensive Metabolic Pane ana 12-12-2024 Albumin [Mass/Vol] 3.6 g/dL Normal 3.5-5.7 [facility] Comment on above: Performed By: #### P HOS, CMP ####[facility] [place] [address] Albumin/Globulin [Mass ratio] 1.3 {ratio} Normal [facility] Comment on above: Performed By: #### P HOS, CMP ####[facility] [place], [place] [id number] [facility] ALP [Catalytic activity/Vol] 72 U/L Normal 34-104 [facility] Comment on above: Performed By: #### P HOS, CMP ####[address] ALT [Catalytic activity/Vol] 67 U/L High 7-52 [facility] Comment on above: Performed By: #### P HOS, CMP ####[address] Anion gap [Moles/Vol] 12.5 mmol/L Normal 6.0-15.0 [facility] Comment on above: Performed By: #### P HOS, CMP ####[address] AST [Catalytic activity/Vol] 41 U/L High 13-39 [facility] Comment on above: Performed By: #### P HOS, CMP ####[address] Bilirubin [Mass/Vol] 0.4 mg/dL Normal 0.3-1.0 [facility] Comment on above: Performed By: #### P HOS, CMP ####[address] Calcium [Mass/Vol] 8.3 mg/dL Low 8.6-10.3 [facility] Comment on above: Performed By: #### P HOS, CMP ####[address] Chloride [Moles/Vol] 101 mmol/L Normal 98-107 [facility] Comment on above: Performed By: #### P HOS, CMP ####[place] [id number] [facility] CO2 [Moles/Vol] 29.2 mmol/L Normal 21.0-31.0 [facility] Comment on above: Performed By: #### P HOS, CMP ####[address] Creatinine [Mass/Vol] 0.65 mg/dL Normal 0.60-1.20 [facility] Comment on above: Performed By: #### P HOS, CMP ####[place] [id number] [facility] Creatinine Clr Calc Pharmacy 67.88 Normal [facility] Comment on above: Performed By: #### P HOS, CMP ####[address] [address] [facility] GFR/1.73 sq M.predicted MDRD (S/P/Bld) [Vol rate/Area] mL/min/{1.73_m2} Normal [facility] Comment on above: Performed By: #### P HOS, CMP ####[place] [id number] [facility] Globulin (S) [Mass/Vol] 2.7 g/dL Normal T [facility] Comment on above: Performed By: #### P HOS, CMP ####[address] Glucose [Mass/Vol] 123 mg/dL High 70-100 [facility] Comment on above: Result Comment: [facility] Glucose Reference Range is dependent on time and content of last meal. Glucose of more than 200 mg/dL in a nonstressed, ambulatory subject supports the diagnosis of Diabetes Mellitus. ADA recommended reference range Performed By: #### P HOS, CMP ####[place] [id number] [facility] Potassium [Moles/Vol] 3.7 mmol/L Normal 3.5-5.1 [facility] Comment on above: Performed By: #### P HOS, CMP ####[place] [id number] [facility] Protein [Mass/Vol] 6.3 g/dL Low 6.4-8.9 [facility] Comment on above: Performed By: #### P HOS, CMP ####[place] [id number] [facility] Sodium [Moles/Vol] 139 mmol/L Normal 136-145 [facility] Comment on above: Performed By: #### P HOS, CMP ####[address] [place] [address] [facility] Urea nitrogen [Mass/Vol] 16 mg/dL Normal 7-25 [facility] Comment on above: Performed By: #### P HOS, CMP ####[facility] [id number] [place] [id number] [facility] Glucose Poct Glucometerson 0 12-12-2024 Commemt1 Glu2: Cleaned Meter Normal [facility] Comment on above: Result Comment: PERF ORMED BY: [place] [address] PATHOLOGIST GUEST RELATIONS RECEPTIONIST MANDY ACUÑA M.D. Performed By: #### G LULS #### Point of Care testing , Glucose [Mass/Vol] 114 mg/dL Normal [facility] Comment on above: Result Comment: [place] [facility] Glucose Reference Range is dependent on time and content of last meal. Glucose of more than 200 mg/dL in a nonstressed, ambulatory subject supports the diagnosis of Diabetes Mellitus. Performed By: #### G LULS #### Point of Care testing , Glucose [Mass/Vol] 107 mg/dL Normal [facility] Comment on above: Result Comment: [place] [facility] Glucose Reference Range is dependent on time and content of last meal. Glucose of more than 200 mg/dL in a nonstressed, ambulatory subject supports the diagnosis of Diabetes Mellitus. PERFORMED BY: [place] [address] PATHOLOGIST GUEST RELATIONS RECEPTIONIST MANDY ACUÑA M.D. Performed By: #### G LULS ####Point of Care testing, Glucose [Mass/Vol] 177 mg/dL Normal [facility] Comment on above: Result Comment: [place] om Glucose Reference Range is dependent on time and content of last meal. Glucose of more than 200 mg/dL in a nonstressed, ambulatory subject supports the diagnosis of Diabetes Mellitus. PERFORMED BY: [place] [address] PATHOLOGIST GUEST RELATIONS RECEPTIONIST MANDY ACUÑA M.D. Performed By: #### G LULS #### Point of Care testing , Glucose [Mass/Vol] 150 mg/dL Normal [facility] Comment on above: Result Comment: [facility] Glucose Reference Range is dependent on time and content of last meal. Glucose of more than 200 mg/dL in a nonstressed, ambulatory subject supports the diagnosis of Diabetes Mellitus. PERFORMED BY: [facility] [address] [place] [id number] PATHOLOGIST GUEST RELATIONS RECEPTIONIST MANDY ACUÑA M.D. Performed By: #### G LULS #### Point of Care testing , Phosphate [Mass/volume] in S idris or PlasmaOrdered By: Daniel Garza on 12-12-2024 Phosphate [Mass/Vol] Phosphate [Mass/volume] in Serum or Plasma Low 2.5-4.5 [facility] Phosphoruson 12-12-2024 Phosphate [Mass/Vol] 2.0 mg/dL Low 2.5-4.5 [facility] Comment on above: Result Comment: PERF ORMED BY: [facility] [address] [place] [id number] PATHOLOGIST GUEST RELATIONS RECEPTIONIST MANDY ACUÑA M.D. Performed By: #### P HOS, CMP ####[facility] [id number] [place] [id number] [facility] Arterial Blood Gason 025 ABG Base Excess -3.0 mmol/L Normal -3.0-3.0 [facility] Comment on above: Performed By: #### A BG #### Point of Care testing , ABG Frac Inspired O2 55 % Normal [facility] Comment on above: Performed By: #### A BG #### Point of Care testing , ABG Oxygen Content 6.9 mmol/L Normal 6.6-9.7 [facility] Comment on above: Performed By: #### A BG #### Point of Care testing , ABG Oxygen Saturation 98.1 % Normal 95.0-100.0 [facility] Comment on above: Performed By: #### A BG #### Point of Care testing , ABG PCO2 40.3 mm[Hg] Normal 35.0-45.0 [facility] Comment on above: Performed By: #### A BG #### Point of Care testing , ABG PEEP 8 cmH20 Normal [facility] Comment on above: Performed By: #### A BG #### Point of Care testing , ABG PH 7.36 Normal 7.35-7.45 [facility] Comment on above: Performed By: #### A BG #### Point of Care testing , ABG PO2 126.0 mm[Hg] Off scale high 80.0-100.0 [facility] Comment on above: Performed By: #### A BG #### Point of Care testing , ABG TV 420 mL Normal [facility] Comment on above: Performed By: #### A BG #### Point of Care testing , Respiratory Critical Normal [facility] Comment on above: Result Comment: Crit ical Value called on: 12/11/2024 at 04:26 PERFORMED BY: [facility] [address] [place] [address] PATHOLOGIST GUEST RELATIONS RECEPTIONIST MANDY ACUÑA M.D. Performed By: #### A BG #### Point of Care testing , Set Respiratory Rate 18 Normal [facility] Comment on above: Performed By: #### A BG #### Point of Care testing , VBG Draw Site Left Radial Normal [facility] Comment on above: Performed By: #### A BG #### Point of Care testing , Ventilator Mode AC Normal [facility] Comment on above: Performed By: #### A BG #### Point of Care testing , Arterial Blood GasOrdered By : Daniel Garza on 12-11-2024 CO2 [Moles/Vol] 23.4 mmol/L Normal 23.0-27.0 [facility] Comment on above: Performed By: #### A BG #### Point of Care testing , HCO3 (Bld) [Moles/Vol] 22.2 mmol/L Low 23.0-29.0 [facility] Comment on above: Performed By: #### A BG #### Point of Care testing , Complete Blood Count Auto Di ffon 12-11-2024 Basophils (Bld) [#/Vol] 0.1 10*3/uL Normal 0.0-0.2 [facility] Comment on above: Result Comment: PERF ORMED BY: [facility] [place] [place] [address] PATHOLOGIST GUEST RELATIONS RECEPTIONIST MANDY ACUÑA M.D. Performed By: #### G LULS #### Point of Care testing , Basophils/100 WBC (Bld) 0.4 % Normal . [facility] Comment on above: Performed By: #### G LULS #### Point of Care testing , Eosinophils (Bld) [#/Vol] 0.0 10*3/uL Normal 0.0-0.45 [facility] Comment on above: Performed By: #### G LULS #### Point of Care testing , Eosinophils/100 WBC (Bld) 0.0 % Normal . [facility] Comment on above: Performed By: #### G LULS #### Point of Care testing , Erythrocyte distribution width (RBC) [Ratio] 16.3 % High 11.9-15.3 [facility] Comment on above: Performed By: #### G LULS #### Point of Care testing , Hematocrit (Bld) [Volume fraction] 32.9 % Low 34.0-46.4 [facility] Comment on above: Performed By: #### G LULS #### Point of Care testing , Hemoglobin (Bld) [Mass/Vol] 10.8 g/dL Low 11.8-15.4 [facility] Comment on above: Performed By: #### G LULS #### Point of Care testing , Lymphocytes (Bld) [#/Vol] 0.3 10*3/uL Low 1.00-4.8 [facility] Comment on above: Performed By: #### G LULS #### Point of Care testing , Lymphocytes/100 WBC (Bld) 1.7 % Normal . [facility] Comment on above: Performed By: #### G LULS #### Point of Care testing , MCH (RBC) [Entitic mass] 28.9 pg Normal 24.7-34.3 [facility] Comment on above: Performed By: #### G LULS #### Point of Care testing , MCV (RBC) [Entitic vol] 87.9 fL Normal 80-100 [facility] Comment on above: Performed By: #### G LULS #### Point of Care testing , Mean Corpuscular HGB Conc 32.9 g/dL Normal 32.0-35.0 [facility] Comment on above: Performed By: #### G LULS #### Point of Care testing , Monocytes (Bld) [#/Vol] 0.5 10*3/uL Normal 0.0-0.8 [facility] Comment on above: Performed By: #### G LULS #### Point of Care testing , Monocytes/100 WBC (Bld) 3.4 % Normal . [facility] Comment on above: Performed By: #### G LULS #### Point of Care testing , Neutrophils (Bld) [#/Vol] 14.5 10*3/uL High 1.8-7.7 [facility] Comment on above: Performed By: #### G LULS #### Point of Care testing , Neutrophils/100 WBC (Bld) 94.5 % Normal . [facility] Comment on above: Performed By: #### G LULS #### Point of Care testing , NRBC% 0.0 /100{WBC} Normal 0-0.5 [facility] Comment on above: Performed By: #### G LULS #### Point of Care testing , Platelet mean volume (Bld) [Entitic vol] 7.2 fL Normal 6.3-10.7 [facility] Comment on above: Performed By: #### G LULS #### Point of Care testing , Platelets (Bld) [#/Vol] 244 10*3/uL Normal 150-450 [facility] Comment on above: Performed By: #### G LULS #### Point of Care testing , RBC (Bld) [#/Vol] 3.74 10*6/uL Normal 3.60-5.00 [facility] Comment on above: Performed By: #### G LULS #### Point of Care testing , WBC (Bld) [#/Vol] 15.4 10*3/uL High 3.8-11.6 [facility] Comment on above: Performed By: #### G LULS #### Point of Care testing , Comprehensive Metabolic Pane ana 12-11-2024 Albumin [Mass/Vol] 3.4 g/dL Low 3.5-5.7 [facility] Comment on above: Performed By: #### G LULS #### Point of Care testing , Albumin/Globulin [Mass ratio] 1.6 {ratio} Normal [facility] Comment on above: Performed By: #### G LULS #### Point of Care testing , ALP [Catalytic activity/Vol] 69 U/L Normal 34-104 [facility] Comment on above: Performed By: #### G JAYLS #### Point of Care testing , ALT [Catalytic activity/Vol] 76 U/L High 7-52 [facility] Comment on above: Performed By: #### G JYALS #### Point of Care testing , Anion gap [Moles/Vol] 11.6 mmol/L Normal 6.0-15.0 [facility] Comment on above: Performed By: #### G LULS #### Point of Care testing , AST [Catalytic activity/Vol] 49 U/L High 13-39 [facility] Comment on above: Performed By: #### G JAYLS #### Point of Care testing , Bilirubin [Mass/Vol] 0.4 mg/dL Normal 0.3-1.0 [facility] Comment on above: Performed By: #### G LULS #### Point of Care testing , Calcium [Mass/Vol] 8.1 mg/dL Low 8.6-10.3 [facility] Comment on above: Performed By: #### G LULS #### Point of Care testing , Chloride [Moles/Vol] 105 mmol/L Normal 98-107 [facility] Comment on above: Performed By: #### G LULS #### Point of Care testing , CO2 [Moles/Vol] 23.7 mmol/L Normal 21.0-31.0 [facility] Comment on above: Performed By: #### G LULS #### Point of Care testing , Creatinine [Mass/Vol] 0.74 mg/dL Normal 0.60-1.20 [facility] Comment on above: Performed By: #### G LULS #### Point of Care testing , Creatinine Clr Calc Pharmacy 67.88 Normal [facility] Comment on above: Performed By: #### G LULS #### Point of Care testing , GFR/1.73 sq M.predicted MDRD (S/P/Bld) [Vol rate/Area] mL/min/{1.73_m2} Normal [facility] Comment on above: Performed By: #### G LULS #### Point of Care testing , Globulin (S) [Mass/Vol] 2.1 g/dL Normal T [facility] Comment on above: Performed By: #### G LULS #### Point of Care testing , Glucose [Mass/Vol] 134 mg/dL High 70-100 [facility] Comment on above: Result Comment: [place] Glucose Reference Range is dependent on time and content of last meal. Glucose of more than 200 mg/dL in a nonstressed, ambulatory subject supports the diagnosis of Diabetes Mellitus. ADA recommended reference range Performed By: #### G LULS #### Point of Care testing , Potassium [Moles/Vol] 4.3 mmol/L Normal 3.5-5.1 [facility] Comment on above: Performed By: #### G LULS #### Point of Care testing , Protein [Mass/Vol] 5.5 g/dL Low 6.4-8.9 [facility] Comment on above: Performed By: #### G LULS #### Point of Care testing , Sodium [Moles/Vol] 136 mmol/L Significant change down 136-145 [facility] Comment on above: Performed By: #### G LULS #### Point of Care testing , Urea nitrogen [Mass/Vol] 21 mg/dL Normal 7-25 [facility] Comment on above: Performed By: #### G LULS #### Point of Care testing , Glucose Poct Glucometerson 0 12-11-2024 Glucose [Mass/Vol] 132 mg/dL Normal [facility] Comment on above: Result Comment: [facility] Glucose Reference Range is dependent on time and content of last meal. Glucose of more than 200 mg/dL in a nonstressed, ambulatory subject supports the diagnosis of Diabetes Mellitus. PERFORMED BY: [address] [place] [id number] PATHOLOGIST GUEST RELATIONS RECEPTIONIST MANDY ACUÑA M.D. Performed By: #### G LULS #### Point of Care testing , Glucose [Mass/Vol] 123 mg/dL Normal [facility] Comment on above: Result Comment: [facility] Glucose Reference Range is dependent on time and content of last meal. Glucose of more than 200 mg/dL in a nonstressed, ambulatory subject supports the diagnosis of Diabetes Mellitus. PERFORMED BY: [facility] [address] [facility] [place] [id number] PATHOLOGIST GUEST RELATIONS RECEPTIONIST MANDY ACUÑA M.D. Performed By: #### A BG #### Point of Care testing , Magnesiumon 12-11-2024 Magnesium [Mass/Vol] 2.3 mg/dL Normal 1.9-2.7 [facility] Comment on above: Result Comment: PERF ORMED BY: [address] [place] [address] PATHOLOGIST GUEST RELATIONS RECEPTIONIST MANDY ACUÑA M.D. Performed By: #### G LULS #### Point of Care testing , Magnesium [Mass/volume] in S idris or PlasmaOrdered By: Daniel Garza on 12-11-2024 Magnesium [Mass/Vol] Magnesium [Mass/volume] in Serum or Plasma 1.9-2.7 [facility] No Panel InformationOrdered By: Daniel Garza on 12-11-2024 Arterial Blood Base Excess -3.0 mmol/L -3.0-3.0 [facility] Arterial Blood Oxygen Content 6.9 mmol/L 6.6-9.7 [facility] Arterial Blood Oxygen Saturation 98.1 % 95.0-100.0 [facility] Arterial Blood Partial Pressure CO2 40.3 mm[Hg] 35.0-45.0 [facility] Arterial Blood Partial Pressure O2 126.0 mm[Hg] Critically high 80.0-100.0 [facility] Arterial Blood pH 7.36 7.35-7.45 [facility] Blood Gas Critical Value See comment [facility] Comment on above: Critical Value hope d on: 12/11/2024 at 04:26 Blood Gas PEEP 8 cmH2O [facility] Blood Gas Sample Site Left radial Fi [facility] Blood Gas Set Respiration Rate 18 [facility] Blood Gas Tidal Volume 420 mL [facility] Blood Gas Ventilator Mode Ac [facility] FiO2 55 % [facility] Phosphoruson 12-11-2024 Phosphate [Mass/Vol] 2.6 mg/dL Normal 2.5-4.5 [facility] Comment on above: Performed By: #### G LULS #### Point of Care testing , Triglyceride [Mass/volume] i n Serum or PlasmaOrdered By: Soco Beasley on 12-11-2024 Triglyceride [Mass/Vol] Triglyceride [Mass/volume] in Serum or Plasma High 35-149 [facility] Comment on above: TRIG ATP III CLASSIF ICATIONTRIG less than 150 mg/dL NormalTRIG 150-199 mg/dL Borderline highTRIG 200-500 mg/dL High TRIG greater than 500 mg/dL Very highStandard traceable to the Center for Disease Conrtrol and Prevention (CDC) test method. Triglycerideson 12-11-2024 Triglyceride [Mass/Vol] 158 mg/dL High 35-149 [facility] Comment on above: Result Comment: TRIG ATP III CLASSIFICATION TRIG less than 150 mg/dL Normal TRIG 150-199 mg/dL Borderline high TRIG 200-500 mg/dL High TRIG greater than 500 mg/dL Very high Standard traceable to the Center for Disease Conrtrol and Prevention (CDC) test method. PERFORMED BY: [facility] [place] [address] PATHOLOGIST GUEST RELATIONS RECEPTIONIST MANDY ACUÑA M.D. Performed By: #### T RIG #### [address] X-ray reportOrdered By: Roman Ugalde on 12-11-2024 Study report [facility] [place] [address] XRay Report Signed Patient: Julian Montaño MR#: [id number] : 1955 Acct:[id number] Age/Sex: 69 / F ADM Date: 5 Loc: 4C Room: [address] [place] [address] Type: ADM IN Attending Dr: Daniel Garza [...] Ugalde Jr., D.O.12/11/2024 8:33 AM Dictation Location: [place] [address] Transcribed By: [facility] 12/11/24 0833 Dictated By: Ryan Ugalde Jr, DO 12/11/24 0832 Signed By: 12/11/24 0833 [facility] XR chest 1V portableon 12-11 XR chest 1V portable [facility] Main [place] [id number] XRay Report Signed Patient: Julian Montaño MR#: [id number] 27 : 1955 Acct:[id number] Age/Sex: 69 / F ADM Date: 12/09/24 Loc: 4C Room: [address] [place] [address] Type: ADM IN Attending Dr: Daniel Garza [...] Ugalde Jr., D.O.12/11/2024 8:33 AM Dictation Location: [facility] Transcribed By: [facility] 12/11/24832 Dictated By: Ryan Ugalde Jr, DO 12/11/24831 Signed By: 12/11/24832 Normal [facility] Amphetamine Screen Ql (U)Ord ered By: Soco Beasley on 12-10-2024 Amphetamines Ql (U) Amphetamines screen Negativ e [facility] Arterial Blood Gason 025 ABG Base Excess -2.9 mmol/L Normal -3.0-3.0 [facility] Comment on above: Performed By: #### A BG #### Point of Care testing , ABG Frac Inspired O2 50 % Normal [facility] Comment on above: Performed By: #### A BG #### Point of Care testing , ABG Oxygen Content 6.8 mmol/L Normal 6.6-9.7 [facility] Comment on above: Performed By: #### A BG #### Point of Care testing , ABG Oxygen Saturation 97.3 % Normal 95.0-100.0 [facility] Comment on above: Performed By: #### A BG #### Point of Care testing , ABG PCO2 42.7 mm[Hg] Normal 35.0-45.0 [facility] Comment on above: Performed By: #### A BG #### Point of Care testing , ABG PEEP 5 cmH20 Normal [facility] Comment on above: Performed By: #### A BG #### Point of Care testing , ABG PH 7.34 Low 7.35-7.45 [facility] Comment on above: Performed By: #### A BG #### Point of Care testing , ABG PO2 99.2 mm[Hg] Normal 80.0-100.0 [facility] Comment on above: Performed By: #### A BG #### Point of Care testing , ABG TV 450 mL Normal [facility] Comment on above: Performed By: #### A BG #### Point of Care testing , CO2 [Moles/Vol] 24.0 mmol/L Normal 23.0-27.0 [facility] Comment on above: Performed By: #### A BG #### Point of Care testing , HCO3 (Bld) [Moles/Vol] 22.7 mmol/L Low 23.0-29.0 [facility] Comment on above: Performed By: #### A BG #### Point of Care testing , Respiratory Critical Normal [facility] Comment on above: Result Comment: Crit ical Value called on: 12/10/2024 at 06:05 PERFORMED BY: [address] [place] [address] PATHOLOGIST GUEST RELATIONS RECEPTIONIST MANDY ACUÑA M.D. Performed By: #### A BG #### Point of Care testing , Set Respiratory Rate 18 Normal [facility] Comment on above: Performed By: #### A BG #### Point of Care testing , VBG Draw Site Left Radial Normal [facility] Comment on above: Performed By: #### A BG #### Point of Care testing , Ventilator Mode AC Normal [facility] Comment on above: Performed By: #### A BG #### Point of Care testing , ABG Base Excess -4.9 mmol/L Low -3.0-3.0 [facility] Comment on above: Performed By: #### G LUNETTIE #### Point of Care testing , ABG Frac Inspired O2 60 % Normal [facility] Comment on above: Performed By: #### G LULS #### Point of Care testing , ABG Oxygen Content 6.8 mmol/L Normal 6.6-9.7 [facility] Comment on above: Performed By: #### G LULS #### Point of Care testing , ABG Oxygen Saturation 98.2 % Normal 95.0-100.0 [facility] Comment on above: Performed By: #### G LULS #### Point of Care testing , ABG PCO2 47.5 mm[Hg] High 35.0-45.0 [facility] Comment on above: Performed By: #### G LULS #### Point of Care testing , ABG PEEP 5 cmH20 Normal [facility] Comment on above: Performed By: #### G LULS #### Point of Care testing , ABG PH 7.28 Low 7.35-7.45 [facility] Comment on above: Performed By: #### G LULS #### Point of Care testing , ABG PO2 140.9 mm[Hg] Off scale high 80.0-100.0 [facility] Comment on above: Performed By: #### G LULS #### Point of Care testing , ABG TV 500 mL Normal [facility] Comment on above: Performed By: #### G LULS #### Point of Care testing , CO2 [Moles/Vol] 23.3 mmol/L Normal 23.0-27.0 [facility] Comment on above: Performed By: #### G LULS #### Point of Care testing , HCO3 (Bld) [Moles/Vol] 21.8 mmol/L Low 23.0-29.0 [facility] Comment on above: Performed By: #### G LULS #### Point of Care testing , Respiratory Critical Normal [facility] Comment on above: Result Comment: Crit ical Value called on: 12/10/2024 at 00:12 PERFORMED BY: [facility] [place] [address] PATHOLOGIST GUEST RELATIONS RECEPTIONIST MANDY ACUÑA M.D. Performed By: #### G LULS #### Point of Care testing , Set Respiratory Rate 18 Normal [facility] Comment on above: Performed By: #### G LULS #### Point of Care testing , VBG Draw Site Right Radial Normal [facility] Comment on above: Performed By: #### G LULS #### Point of Care testing , Ventilator Mode AC Normal [facility] Comment on above: Performed By: #### G LULS #### Point of Care testing , Barbiturates [Presence] in U rine by Screen methodOrdered By: Soco Beasley on 12-10-2024 Barbiturates Screen Ql (U) Barbiturates [Presence] in Urine by Screen method Negative [facility] Benzodiazepines Screen Ql (U )Ordered By: Soco Beasley on 12-10-2024 Benzodiazepines Ql (U) Benzodiazepines [Presence] in Urine by Screen method High Negative [facility] Benzoylecgonine [Presence] i n Urine by Screen methodOrdered By: Soco Beasley on 12-10-2024 Benzoylecgonine Screen Ql (U) Benzoylecgonine [Presence] in Urine by Screen method Negative [facility] Cannabinoids [Presence] in U rine by Screen methodOrdered By: Soco Beasley on 12-10-2024 Cannabinoids Screen Ql (U) Cannabinoids [Presence] in Urine by Screen method Negative [facility] Comment on above: These are unconfirme d results and should not be used for legal purposes. Drug Cut-Off Concentration: AMPH 1000 ng/mL MICHAEL 200 ng/mL JAVAN 200 ng/mL COCM 300 ng/mL OP 300 ng/mL PCP 25 ng/mL THC 20 ng/mL Complete Blood Count Auto Di ffon 12-10-2024 Basophils (Bld) [#/Vol] 0.1 10*3/uL Normal 0.0-0.2 [facility] Comment on above: Result Comment: PERF ORMED BY: [facility] [address] [place] [address] PATHOLOGIST GUEST RELATIONS RECEPTIONIST MANDY ACUÑA M.D. Performed By: #### A BG #### Point of Care testing , Basophils/100 WBC (Bld) 0.5 % Normal . [facility] Comment on above: Performed By: #### A BG #### Point of Care testing , Eosinophils (Bld) [#/Vol] 0.0 10*3/uL Normal 0.0-0.45 [facility] Comment on above: Performed By: #### A BG #### Point of Care testing , Eosinophils/100 WBC (Bld) 0.0 % Normal . [facility] Comment on above: Performed By: #### A BG #### Point of Care testing , Erythrocyte distribution width (RBC) [Ratio] 15.5 % High 11.9-15.3 [facility] Comment on above: Performed By: #### A BG #### Point of Care testing , Hematocrit (Bld) [Volume fraction] 31.0 % Low 34.0-46.4 [facility] Comment on above: Performed By: #### A BG #### Point of Care testing , Hemoglobin (Bld) [Mass/Vol] 10.1 g/dL Low 11.8-15.4 [facility] Comment on above: Performed By: #### A BG #### Point of Care testing , Lymphocytes (Bld) [#/Vol] 0.2 10*3/uL Low 1.00-4.8 [facility] Comment on above: Performed By: #### A BG #### Point of Care testing , Lymphocytes/100 WBC (Bld) 1.2 % Normal . [facility] Comment on above: Performed By: #### A BG #### Point of Care testing , MCH (RBC) [Entitic mass] 28.4 pg Normal 24.7-34.3 [facility] Comment on above: Performed By: #### A BG #### Point of Care testing , MCV (RBC) [Entitic vol] 86.7 fL Normal 80-100 [facility] Comment on above: Performed By: #### A BG #### Point of Care testing , Mean Corpuscular HGB Conc 32.7 g/dL Normal 32.0-35.0 [facility] Comment on above: Performed By: #### A BG #### Point of Care testing , Monocytes (Bld) [#/Vol] 0.5 10*3/uL Normal 0.0-0.8 [facility] Comment on above: Performed By: #### A BG #### Point of Care testing , Monocytes/100 WBC (Bld) 3.1 % Normal . [facility] Comment on above: Performed By: #### A BG #### Point of Care testing , Neutrophils (Bld) [#/Vol] 14.4 10*3/uL High 1.8-7.7 [facility] Comment on above: Performed By: #### A BG #### Point of Care testing , Neutrophils/100 WBC (Bld) 95.2 % Normal . [facility] Comment on above: Performed By: #### A BG #### Point of Care testing , NRBC% 0.0 /100{WBC} Normal 0-0.5 [facility] Comment on above: Performed By: #### A BG #### Point of Care testing , Platelet mean volume (Bld) [Entitic vol] 7.0 fL Normal 6.3-10.7 [facility] Comment on above: Performed By: #### A BG #### Point of Care testing , Platelets (Bld) [#/Vol] 236 10*3/uL Normal 150-450 [facility] Comment on above: Performed By: #### A BG #### Point of Care testing , RBC (Bld) [#/Vol] 3.57 10*6/uL Low 3.60-5.00 [facility] Comment on above: Performed By: #### A BG #### Point of Care testing , WBC (Bld) [#/Vol] 15.2 10*3/uL High 3.8-11.6 [facility] Comment on above: Performed By: #### A BG #### Point of Care testing , Comprehensive Metabolic Pane ana 12-10-2024 Albumin [Mass/Vol] 3.4 g/dL Low 3.5-5.7 [facility] Comment on above: Performed By: #### A BG #### Point of Care testing , Albumin/Globulin [Mass ratio] 1.5 {ratio} Normal [facility] Comment on above: Performed By: #### A BG #### Point of Care testing , ALP [Catalytic activity/Vol] 69 U/L Normal 34-104 [facility] Comment on above: Performed By: #### A BG #### Point of Care testing , ALT [Catalytic activity/Vol] 71 U/L High 7-52 [facility] Comment on above: Performed By: #### A BG #### Point of Care testing , Anion gap [Moles/Vol] 10.3 mmol/L Normal 6.0-15.0 [facility] Comment on above: Performed By: #### A BG #### Point of Care testing , AST [Catalytic activity/Vol] 50 U/L High 13-39 [facility] Comment on above: Performed By: #### A BG #### Point of Care testing , Bilirubin [Mass/Vol] 0.4 mg/dL Normal 0.3-1.0 [facility] Comment on above: Performed By: #### A BG #### Point of Care testing , Calcium [Mass/Vol] 7.0 mg/dL Low 8.6-10.3 [facility] Comment on above: Performed By: #### A BG #### Point of Care testing , Chloride [Moles/Vol] 101 mmol/L Normal 98-107 [facility] Comment on above: Performed By: #### A BG #### Point of Care testing , CO2 [Moles/Vol] 22.0 mmol/L Normal 21.0-31.0 [facility] Comment on above: Performed By: #### A BG #### Point of Care testing , Creatinine [Mass/Vol] 0.64 mg/dL Normal 0.60-1.20 [facility] Comment on above: Performed By: #### A BG #### Point of Care testing , Creatinine Clr Calc Pharmacy 69.14 Normal [facility] Comment on above: Performed By: #### A BG #### Point of Care testing , GFR/1.73 sq M.predicted MDRD (S/P/Bld) [Vol rate/Area] mL/min/{1.73_m2} Normal [facility] Comment on above: Performed By: #### A BG #### Point of Care testing , Globulin (S) [Mass/Vol] 2.2 g/dL Normal [facility] Comment on above: Performed By: #### A BG #### Point of Care testing , Glucose [Mass/Vol] 151 mg/dL High 70-100 [facility] Comment on above: Result Comment: [facility] Glucose Reference Range is dependent on time and content of last meal. Glucose of more than 200 mg/dL in a nonstressed, ambulatory subject supports the diagnosis of Diabetes Mellitus. ADA recommended reference range Performed By: #### A BG #### Point of Care testing , Potassium [Moles/Vol] 3.3 mmol/L Low 3.5-5.1 [facility] Comment on above: Performed By: #### A BG #### Point of Care testing , Protein [Mass/Vol] 5.6 g/dL Low 6.4-8.9 [facility] Comment on above: Performed By: #### A BG #### Point of Care testing , Sodium [Moles/Vol] 130 mmol/L Low 136-145 [facility] Comment on above: Performed By: #### A BG #### Point of Care testing , Urea nitrogen [Mass/Vol] 14 mg/dL Normal 7-25 [facility] Comment on above: Performed By: #### A BG #### Point of Care testing , Drug Screen,Urineon 12-10-19 25 Amphetamine Screen,Urine Negative Normal Negative [facility] Comment on above: Performed By: #### U RDS #### [place] [address] [place] Barbiturate Screen,Urine Negative Normal Negative [facility] Comment on above: Performed By: #### U RDS #### [facility] [address] [place] [address] [place] Benzodiazepines Screen,Urine Positive High Negative [facility] Comment on above: Performed By: #### U RDS #### [facility] [address] [place] [address] [place] Cannabinoid Screen,Urine Negative Normal Negative [facility] Comment on above: Result Comment: Thes e are unconfirmed results and should not be used for legal purposes. Drug Cut-Off Concentration: AMPH 1000 ng/mL MICHAEL 200 ng/mL JAVAN 200 ng/mL COCM 300 ng/mL OP 300 ng/mL PCP 25 ng/mL THC 20 ng/mL PERFORMED BY: [place] [address] PATHOLOGIST GUEST RELATIONS RECEPTIONIST MANDY ACUÑA M.D. Performed By: #### U RDS #### [address] Cocaine Screen,Urine Negative Normal Negative [facility] Comment on above: Performed By: #### U RDS #### [address] Opiate Screen,Urine Positive High Negative [facility] Comment on above: Performed By: #### U RDS #### [address] Phencyclidine Screen,Urine Negative Normal Negative [facility] Comment on above: Performed By: #### U RDS #### [address] [facility] echo transthoracicon E[facility] echo transthoracic [facility] Main [place] [address] [place] [address] Echocardiogram Signed Patient: Julian Montaño MR#: [id number] [birth year] : 1955 Acct:[id number] Age/Sex: 69 / F ADM Date: 12/09/24 Loc: Room: [address] [place] [address] Type: ADM IN Attending Dr: Daniel Garza [...] Gildardo Pastor MD 12/10/24 1712 Normal [facility] Glucose Poct Glucometerson 0 12-10-2024 Glucose [Mass/Vol] 135 mg/dL Normal [facility] Comment on above: Result Comment: [place] Glucose Reference Range is dependent on time and content of last meal. Glucose of more than 200 mg/dL in a nonstressed, ambulatory subject supports the diagnosis of Diabetes Mellitus. PERFORMED BY: [place] [address] PATHOLOGIST GUEST RELATIONS RECEPTIONIST MANDY ACUÑA M.D. Performed By: #### G LULS #### Point of Care testing , Magnesiumon 12-10-2024 Magnesium [Mass/Vol] 1.7 mg/dL Low 1.9-2.7 [facility] Comment on above: Result Comment: PERF ORMED BY: [place] [address] PATHOLOGIST GUEST RELATIONS RECEPTIONIST MANDY ACUÑA M.D. Performed By: #### U RDS #### [address] Opiates [Presence] in Urine by Screen methodOrdered By: Soco Beasley on 12-10-2024 Opiates Screen Ql (U) Opiates [Presence] in Urine by Screen method High Negative [facility] Phencyclidine Screen Ql (U)O rdered By: Soco Beasley on 12-10-2024 Phencyclidine Ql (U) Phencyclidine [Presence] in Urine by Screen method Negative [facility] Troponin I High Sensitivityo n 12-10-2024 Troponin I High Sensitivity 1309 Off scale high 0-15 [facility] Comment on above: Result Comment: Crit ical Result : Called to and read back by: VIOLA KAY at: 12/10/2024 07:21:46 by:CELESTINA The Troponin units of report have been changed to meet the Chest Pain Accreditation requirement, element EC5.M1l2. Troponin units are changed from pg/ml to ng/L. Also, the decimal is removed and results are in whole numbers. PERFORMED BY: [place] [address] PATHOLOGIST GUEST RELATIONS RECEPTIONIST MANDY ACUÑA M.D. Performed By: #### G LULS #### Point of Care testing , Troponin I.cardiac [Mass/vol ume] in Serum or Plasma by Detection limit <= 0.01 ng/Ordered By: Soco Beasley on 12-10-2024 Troponin I.cardiac DL <= 0.01 ng/mL [Mass/Vol] Troponin I.cardiac [Mass/volume] in Serum or Plasma by Detection limit <= 0.01 ng/ Critically high 0-15 [facility] Comment on above: Critical Result : [...] Ugalde on 12-10-2024 Study report [facility] Main [address] [address] XRay Report Signed Patient: Julian Montaño MR#: [id number] : 1955 Acct:[id number] Age/Sex: 69 / F ADM Date: 5 Loc: Room: [address] [place] [address] Type: ADM IN Attending Dr: Soco Beasley MD Copies to: Soco Beasley MD~ Ordering Provider: Soco Beasley MD Date of Service: 12/10/24 XR/XR chest 1V portable: Intubated SINGLE VIEW CHEST CLINICAL HISTORY: Transfer from [place]. Following responsive. COMPARISON: Chest 12/09/2024 FINDINGS: Enteric [...] Jr, DO 12/10/24 0912 Signed By: 12/10/2413 [facility] Study report [facility] [place] [address] XRay Report Signed Patient: Julian Montaño MR#: [id number] : 1955 Acct:[id number] Age/Sex: 69 / F ADM Date: 5 Loc: Room: [address] [place] [address] Type: ADM IN Attending Dr: Soco Beasley [...] DO 12/10/24 0831 Signed By: 12/10/24 0833 [facility] X-ray reportOrdered By: Hima Toledo on 12-10-2024 Study report [facility] Main [address] [address] XRay Report Signed Patient: Julian Montaño MR#: [id number] : 1955 Acct:[id number] Age/Sex: 69 / F ADM Date: 5 Loc: 4C Room: [address] [place] [address] Type: ADM IN Attending Dr: Soco Beasley [...] M.D.12/10/2024 8:31 AM Dictation Location: [place] [address] Transcribed By: [facility] 12/10/[address] Dictated By: Torsten Toledo MD 12/10/2429 Signed By: 12/10/24 0831 [facility] Work Phone: XR abdomen 1Von 12-10-2024 XR abdomen 1V [facility] Main [address] [address] XRay Report Signed Patient: Julian Montaño MR#: [id number] [birth year] : 1955 Acct:[id number] Age/Sex: 69 / F ADM Date: 12/09/24 Loc: 4C Room: [address] [place] [address] Type: ADM IN Attending Dr: Soco Beasley [...] 8:33 AM Dictation Location: [id number] Transcribed By: [facility] 12/10/24 0833 Dictated By: Ryan Ugalde Jr, DO 12/10/24 0831 Signed By: 12/10/24 0833 Normal [facility] XR chest 1V portableon 12-10 XR chest 1V portable [facility] Main [place] [address] [place] [address] XRay Report Signed Patient: Julian Montaño MR#: [id number] [birth year] : 1955 Acct:[id number] Age/Sex: 69 / F ADM Date: 12/09/24 Loc: Room: [address] [place] [address] Type: ADM IN Attending Dr: Soco Beasley MD Copies to: Soco Beasley MD Ordering Provider: Soco Beasley MD Date of Service: 12/10/24 XR/XR chest 1V portable: Intubated SINGLE VIEW CHEST CLINICAL HISTORY: Transfer from [place]. Following responsive. COMPARISON: Chest 12/09/2024 FINDINGS: Enteric [...] DO 12/10/24911 Signed By: 12/10/24912 Normal [facility] XR chest 1V portable [facility] Main [address] [address] XRay Report Signed Patient: Julian Montaño MR#: [id number] [birth year] : 1955 Acct:[id number] Age/Sex: 69 / F ADM Date: 12/09/24 Loc: Room: [address] [place] [address] Type: ADM IN Attending Dr: Soco Beasley [...] MD 12/10/2429 Signed By: 12/10/24830 Normal [facility] Aerobic Cultureon 12-09-2024 Aerobic Culture Light Normal Respiratory Chase 2 Days Gram Stain Result 3+ White Blood Cells Rare Epithelial Cells 4+ Gram Positive Cocci in Chains AND PAIRS PERFORMED BY: [place] [address] PATHOLOGIST GUEST RELATIONS RECEPTIONIST MANDY ACUÑA M.D. Normal [facility] Comment on above: Performed By: #### G LULS #### Point of Care testing , Aerobic cultureOrdered By: James ledezma Ramos on 12-09-2024 Bacteria identified Aer cx Nom (Unsp spec) Aerobic culture [facility] Anisocytosis LM Ql (Bld)Orde red By: Soco Beasley on 12-09-2024 Anisocytosis Ql (Bld) Anisocytosis [Presence] in Blood by Light microscopy [facility] Arterial Blood Gason 025 ABG Base Excess -4.7 mmol/L Low -3.0-3.0 [facility] Comment on above: Performed By: #### A BG #### Point of Care testing , ABG Frac Inspired O2 40 % Normal [facility] Comment on above: Performed By: #### A BG #### Point of Care testing , ABG Oxygen Content 6.5 mmol/L Low 6.6-9.7 [facility] Comment on above: Performed By: #### A BG #### Point of Care testing , ABG Oxygen Saturation 90.5 % Low 95.0-100.0 [facility] Comment on above: Performed By: #### A BG #### Point of Care testing , ABG PCO2 57.0 mm[Hg] Off scale high 35.0-45.0 [facility] Comment on above: Performed By: #### A BG #### Point of Care testing , ABG PEEP 5 cmH20 Normal [facility] Comment on above: Performed By: #### A BG #### Point of Care testing , ABG PH 7.23 Low 7.35-7.45 [facility] Comment on above: Performed By: #### A BG #### Point of Care testing , ABG PO2 66.7 mm[Hg] Low 80.0-100.0 [facility] Comment on above: Performed By: #### A BG #### Point of Care testing , ABG TV 450 mL Normal [facility] Comment on above: Performed By: #### A BG #### Point of Care testing , CO2 [Moles/Vol] 25.1 mmol/L Normal 23.0-27.0 [facility] Comment on above: Performed By: #### A BG #### Point of Care testing , HCO3 (Bld) [Moles/Vol] 23.3 mmol/L Normal 23.0-29.0 [facility] Comment on above: Performed By: #### A BG #### Point of Care testing , Respiratory Critical Normal [facility] Comment on above: Result Comment: Crit ical Value called on: 12/09/2024 at 21:27 PERFORMED BY: [address] [address] PATHOLOGIST GUEST RELATIONS RECEPTIONIST MANDY ACUÑA M.D. Performed By: #### A BG #### Point of Care testing , Set Respiratory Rate 14 Normal [facility] Comment on above: Performed By: #### A BG #### Point of Care testing , VBG Draw Site Left Radial Normal [facility] Comment on above: Performed By: #### A BG #### Point of Care testing , Ventilator Mode AC Normal [facility] Comment on above: Performed By: #### A BG #### Point of Care testing , Band form neutrophils/100 WB C Manual cnt (Bld)Ordered By: Soco Beasley on 12-09-2024 Band form neutrophils/100 WBC (Bld) Peripheral white blood cell differential % bands, microscopic exam High 0-5 [facility] Blood Cultureon 12-09-2024 Bacteria identified Cx Nom (Bld) NO GROWTH 5 DAYS PERFORMED BY: [address] [place] [address] PATHOLOGIST GUEST RELATIONS RECEPTIONIST MANDY ACUÑA M.D. Normal [facility] Comment on above: Performed By: #### G LULS #### Point of Care testing , Bacteria identified Cx Nom (Bld) NO GROWTH 5 DAYS PERFORMED BY: [address] [address] PATHOLOGIST GUEST RELATIONS RECEPTIONIST MANDY ACUÑA M.D. Normal [facility] Comment on above: Performed By: #### G LULS #### Point of Care testing , Florinda cells [Presence] in Blo od by Light microscopyOrdered By: Soco Beasley on 12-09-2024 Florinda cells LM Ql (Bld) Florinda cells [Prese nce] in Blood by Light microscopy [facility] Comprehensive Metabolic Pane ana 12-09-2024 Albumin [Mass/Vol] 3.6 g/dL Normal 3.5-5.7 [facility] Comment on above: Performed By: #### A BG #### Point of Care testing , Albumin/Globulin [Mass ratio] 1.6 {ratio} Normal [facility] Comment on above: Performed By: #### A BG #### Point of Care testing , ALP [Catalytic activity/Vol] 78 U/L Normal 34-104 [facility] Comment on above: Result Comment: PERF ORMED BY: [facility] [address] [place] [address] PATHOLOGIST GUEST RELATIONS RECEPTIONIST MANDY ACUÑA M.D. Performed By: #### A BG #### Point of Care testing , ALT [Catalytic activity/Vol] 82 U/L High 7-52 [facility] Comment on above: Performed By: #### A BG #### Point of Care testing , Anion gap [Moles/Vol] 8.6 mmol/L Normal 6.0-15.0 [facility] Comment on above: Performed By: #### A BG #### Point of Care testing , AST [Catalytic activity/Vol] 61 U/L High 13-39 [facility] Comment on above: Performed By: #### A BG #### Point of Care testing , Bilirubin [Mass/Vol] 0.4 mg/dL Normal 0.3-1.0 [facility] Comment on above: Performed By: #### A BG #### Point of Care testing , Calcium [Mass/Vol] 7.1 mg/dL Low 8.6-10.3 [facility] Comment on above: Performed By: #### A BG #### Point of Care testing , Chloride [Moles/Vol] 97 mmol/L Low 98-107 [facility] Comment on above: Performed By: #### A BG #### Point of Care testing , CO2 [Moles/Vol] 24.6 mmol/L Normal 21.0-31.0 [facility] Comment on above: Performed By: #### A BG #### Point of Care testing , Creatinine [Mass/Vol] 0.68 mg/dL Normal 0.60-1.20 [facility] Comment on above: Performed By: #### A BG #### Point of Care testing , GFR/1.73 sq M.predicted MDRD (S/P/Bld) [Vol rate/Area] mL/min/{1.73_m2} Normal [facility] Comment on above: Performed By: #### A BG #### Point of Care testing , Globulin (S) [Mass/Vol] 2.3 g/dL Normal [facility] Comment on above: Performed By: #### A BG #### Point of Care testing , Glucose [Mass/Vol] 186 mg/dL High 70-100 [facility] Comment on above: Result Comment: [place] Glucose Reference Range is dependent on time and content of last meal. Glucose of more than 200 mg/dL in a nonstressed, ambulatory subject supports the diagnosis of Diabetes Mellitus. ADA recommended reference range Performed By: #### A BG #### Point of Care testing , Potassium [Moles/Vol] 3.2 mmol/L Low 3.5-5.1 [facility] Comment on above: Performed By: #### A BG #### Point of Care testing , Protein [Mass/Vol] 5.9 g/dL Low 6.4-8.9 [facility] Comment on above: Performed By: #### A BG #### Point of Care testing , Sodium [Moles/Vol] 127 mmol/L Low 136-145 [facility] Comment on above: Performed By: #### A BG #### Point of Care testing , Urea nitrogen [Mass/Vol] 16 mg/dL Normal 7-25 [facility] Comment on above: Performed By: #### A BG #### Point of Care testing , Diff and CBCon 12-09-2024 Anisocytosis Ql (Bld) Slight Normal [facility] Comment on above: Performed By: #### A BG #### Point of Care testing , Band form neutrophils/100 WBC (Bld) 27 % High 0-5 [facility] Comment on above: Performed By: #### A BG #### Point of Care testing , Crenated RBC Slight Normal [facility] Comment on above: Performed By: #### A BG #### Point of Care testing , Erythrocyte distribution width (RBC) [Ratio] 15.4 % High 11.9-15.3 [facility] Comment on above: Performed By: #### A BG #### Point of Care testing , Hematocrit (Bld) [Volume fraction] 33.0 % Low 34.0-46.4 [facility] Comment on above: Performed By: #### A BG #### Point of Care testing , Hemoglobin (Bld) [Mass/Vol] 10.7 g/dL Low 11.8-15.4 [facility] Comment on above: Performed By: #### A BG #### Point of Care testing , Lymphocytes/100 WBC (Bld) 0 % Low 18-42 [facility] Comment on above: Performed By: #### A BG #### Point of Care testing , MCH (RBC) [Entitic mass] 28.1 pg Normal 24.7-34.3 [facility] Comment on above: Performed By: #### A BG #### Point of Care testing , MCV (RBC) [Entitic vol] 87.0 fL Normal 80-100 [facility] Comment on above: Performed By: #### A BG #### Point of Care testing , Mean Corpuscular HGB Conc 32.3 g/dL Normal 32.0-35.0 [facility] Comment on above: Performed By: #### A BG #### Point of Care testing , Microcytosis Slight Normal [facility] Comment on above: Performed By: #### A BG #### Point of Care testing , Monocytes/100 WBC (Bld) 2 % Normal 2-11 [facility] Comment on above: Performed By: #### A BG #### Point of Care testing , Platelet Estimate Normal Normal Normal [facility] Comment on above: Performed By: #### A BG #### Point of Care testing , Platelet mean volume (Bld) [Entitic vol] 6.9 fL Normal 6.3-10.7 [facility] Comment on above: Result Comment: PERF ORMED BY: [address] [address] PATHOLOGIST GUEST RELATIONS RECEPTIONIST MANDY ACUÑA M.D. Performed By: #### A BG #### Point of Care testing , Platelet Morphology Normal Normal Normal [facility] Comment on above: Result Comment: PERF ORMED BY: [address] [address] PATHOLOGIST GUEST RELATIONS RECEPTIONIST MANDY ACUÑA M.D. Performed By: #### A BG #### Point of Care testing , Platelets (Bld) [#/Vol] 236 10*3/uL Normal 150-450 [facility] Comment on above: Performed By: #### A BG #### Point of Care testing , Poikilocytosis Slight Normal [facility] Comment on above: Performed By: #### A BG #### Point of Care testing , Polychromasia Slight Normal [facility] Comment on above: Performed By: #### A BG #### Point of Care testing , RBC (Bld) [#/Vol] 3.80 10*6/uL Normal 3.60-5.00 [facility] Comment on above: Performed By: #### A BG #### Point of Care testing , Segmented neutrophils/100 WBC (Bld) 71 % High 50-70 [facility] Comment on above: Performed By: #### A BG #### Point of Care testing , WBC (Bld) [#/Vol] 15.9 10*3/uL High 3.8-11.6 [facility] Comment on above: Performed By: #### A BG #### Point of Care testing , ECG 12 lead ECGon 12-09-2024 ECG 12 lead ECG [facility] Main [address] [address] Electrocardiograph Report Signed Patient: Julian Montaño MR#: [id number] [birth year] : 1955 Acct:[id number] Age/Sex: 69 / F ADM Date: 12/09/24 Loc: Room: [address] [place] [address] Type: ADM IN Attending Dr: Daniel Garza [...] block Abnormal ECG Confirmed by Krissy Cortez ([id number]) on 12/12/2024 12:01:02 AM Referred By: Electronically Signed By: Krissy Cortez Transcribed By: MUS Signed By Krissy Cortez MD 5 0001 Normal [facility] Erythrocyte morphology findi ng [Identifier] in BloodOrdered By: Soco Beasley on 12-09-2024 RBC morphology finding Nom (Bld) RBC morphology [facility] Gram Stainon 12-09-2024 Microscopic observation Gram stain Nom (Unsp spec) Gram Stain Result 3+ White Blood Cells Rare Epithelial Cells 4+ Gram Positive Cocci in Chains AND PAIRS PERFORMED BY: [place] [address] PATHOLOGIST GUEST RELATIONS RECEPTIONIST MANDY ACUÑA M.D. Normal [facility] Comment on above: Performed By: #### G LULS #### Point of Care testing , Gram stain microscopyOrdered By: Soco Beasley on 12-09-2024 Microscopic observation Gram stain Nom (Unsp spec) Gram stain microscopy [facility] Laboratory - Microbiology an d Antimicrobial susceptibilityOrdered By: Soco Beasley on 12-09-2024 Bacteria identified Cx Nom (Bld) NO GROWTH 5 DAYS [facility] Bacteria identified Cx Nom (Bld) NO GROWTH 5 DAYS [facility] Lactate [Moles/volume] in Se rum or PlasmaOrdered By: Soco Beasley on 12-09-2024 Lactate [Moles/Vol] Lactate [Moles/volume] in Serum or Plasma 0.5-1.9 [facility] Comment on above: Lactic Acid referenc e range has been updated to 0.5 1.9 mmol/L and the critical range of 2.0 or greater. Lactic Acidon 12-09-2024 Lactate [Moles/Vol] 1.4 mmol/L Normal 0.5-1.9 [facility] Comment on above: Result Comment: Lact ic Acid reference range has been updated to 0.5 ? 1.9 mmol/L and the critical range of 2.0 or greater. PERFORMED BY: [address] [place] [address] PATHOLOGIST GUEST RELATIONS RECEPTIONIST MANDY ACUÑA M.D. Performed By: #### G LULS #### Point of Care testing , Lactate [Moles/Vol] 1.3 mmol/L Normal 0.5-1.9 [facility] Comment on above: Result Comment: Lact ic Acid reference range has been updated to 0.5 ? 1.9 mmol/L and the critical range of 2.0 or greater. PERFORMED BY: [address] [place] [address] PATHOLOGIST GUEST RELATIONS RECEPTIONIST MANDY ACUÑA M.D. Performed By: #### G LULS #### Point of Care testing , Lymphocytes/100 WBC Manual c nt (Bld)Ordered By: Soco Beasley on 12-09-2024 Lymphocytes/100 WBC (Bld) Lymphocytes/100 leukocytes in Blood by Manual count Low 18-42 [facility] Microcytes LM Ql (Bld)Ordere d By: Soco Beasley on 12-09-2024 Microcytes Ql (Bld) Microcytes [Presence ] in Blood by Light microscopy [facility] Monocytes/100 WBC Manual cnt (Bld)Ordered By: Soco Beasley on 12-09-2024 Monocytes/100 WBC (Bld) Monocytes/100 leukocytes in Blood by Manual count 2-11 [facility] Platelet adequacy [Presence] in Blood by Light microscopyOrdered By: Soco Beasley on 12-09-2024 Platelets LM Ql (Bld) Platelet adequacy [Presence] in Blood by Light microscopy Normal [facility] Platelet morphology finding [Identifier] in BloodOrdered By: Soco Beasley on 12-09-2024 Platelet morphology finding Nom (Bld) Platelet morphology finding [Identifier] in Blood Normal [facility] Poikilocytosis [Presence] in Blood by Light microscopyOrdered By: Soco Beasley on 12-09-2024 Poikilocytosis LM Ql (Bld) Poikilocytosis [Presence] in Blood by Light microscopy [facility] Polychromasia [Presence] in Blood by Light microscopyOrdered By: Soco Beasley on 12-09-2024 Polychromasia LM Ql (Bld) Polychromasia [Presence] in Blood by Light microscopy [facility] Segmented neutrophils/100 WB C Manual cnt (Bld)Ordered By: Soco Beasley on 12-09-2024 Segmented neutrophils/100 WBC (Bld) Manual blood segmented neutrophils/100 leukocytes High 50-70 [facility] Triglycerideson 12-09-2024 Triglyceride [Mass/Vol] 63 mg/dL Normal 35-149 [facility] Comment on above: Result Comment: TRIG ATP III CLASSIFICATION TRIG less than 150 mg/dL Normal TRIG 150-199 mg/dL Borderline high TRIG 200-500 mg/dL High TRIG greater than 500 mg/dL Very high Standard traceable to the Center for Disease Conrtrol and Prevention (CDC) test method. PERFORMED BY: [facility] [address] [place] [address] PATHOLOGIST GUEST RELATIONS RECEPTIONIST MANDY ACUÑA M.D. Performed By: #### G LULS #### Point of Care testing , Troponin I High Sensitivityo n 12-09-2024 Troponin I High Sensitivity 1309 Off scale high 0-15 [facility] Comment on above: Result [...] in whole numbers. PERFORMED BY: [facility] [place] [address] PATHOLOGIST GUEST RELATIONS RECEPTIONIST MANDY ACUÑA M.D. Performed By: #### A BG #### Point of Care testing , HbA1c (Bld) [Mass fraction]o n 09-20-2024 Interpretation and review of laboratory results Normal [facility] - Hematology and Cell countson 09-20-2024 HbA1c (Bld) [Mass fraction] 6.1 % [facility] Neurology Forms- Texton Neurology Forms- Text [id number] #1.00TIFF Normal [facility] Consent for Treatmenton Consent for Treatment [id number]#1 .00TIFF Normal [facility] Physician Orderon 12-05-2023 Physician Order [id number]#1 .00TIFF Normal [facility] MRI Brain w/ + w/o Contrasto [...] Contrast amount in ml's: 6 Normal [facility] MRI Spine Cervical w/o Contr bonnie [...] SANA Technologist: CORDELIA Technical Comments None Normal [facility] BUNon 11-30-2023 Urea nitrogen [Mass/Vol] 17 mg/dL Normal 5-21 [facility] Comment on above: Performed By: #### 1 [id number], [id number] #### [facility] Laboratory [address] [place] [address] Consent for Treatmenton 11-14 Consent for Treatment [id number]#1 .00TIFF Normal [facility] Creatinineon 11-30-2023 Creatinine [Mass/Vol] 0.8 mg/dL Normal 0.5-1.3 [facility] Comment on above: Performed By: #### 1 [id number], [id number], [id number] #### [facility] Laboratory [address] [place] [address] RAD - MRI Screening Formon 0 11-30-2023 RAD - MRI Screening Form [id number]#1 .00TIFF Normal [facility] eGFRon 11-30-2023 eGFR 79 mL/min/1.73 m2 Normal >=59 [facility] Comment on above: Order Comment: Order added by Discern Expert. Performed By: #### 1 [id number], [id number], [id number] #### [facility] [address] [place] [address] Physician Orderon 10-28-2023 Physician Order [id number]#1 .00TIFF Normal [facility] CBC AUTO DIFFon 01-05-2023 BASO # 0.1 103/ul Normal 0.0-0.1 [facility] Comment on above: Performed By: #### C BC #### [facility] [address] [place] [address] Dr. Stan Aceves Basophils/100 WBC (Bld) 0.7 % Normal 0.2-2.0 [facility] Comment on above: Performed By: #### C BC #### [facility] [address] [place] [address] Dr. Stan Aceves EO # 0.1 103/ul Normal 0.0-0.7 [facility] Comment on above: Performed By: #### C BC #### [facility] [address] [place] [address] Dr. Stan Aceves Eosinophils/100 WBC (Bld) 1.0 % Normal 0.9-7.0 [facility] Comment on above: Performed By: #### C BC #### [facility] [address] [place] [address] Dr. Stan Aceves Erythrocyte distribution width (RBC) [Ratio] 16.8 % Critically high 11.0-15.0 [facility] Comment on above: Performed By: #### C BC #### [facility] [address] [place] [address] Dr. Stan Aceves Hematocrit (Bld) [Volume fraction] 33.7 % Critically low 36.0-48.0 [facility] Comment on above: Performed By: #### C BC #### [facility] [address] [place] [address] Dr. Stan Aceves Hemoglobin (Bld) [Mass/Vol] 10.6 g/dL Critically low 12.0-16.0 [facility] Comment on above: Performed By: #### C BC #### [facility] [address] [place] [address] Dr. Stan Aceves IG # 0.03 10e3/ul Normal 0.00-0.03 [facility] Comment on above: Performed By: #### C BC #### [facility] [address] [place] [address] Dr. Stan Aceves IG % 0.3 % Normal 0.0-0.5 [facility] Comment on above: Performed By: #### C BC #### [facility] [address] [place] [address] Dr. Stan Aceves LYMPH # 0.9 103/ul Critically low 1.2-3.8 [facility] Comment on above: Performed By: #### C BC #### [facility] [address] [place] [address] Dr. Stan Aceves Lymphocytes/100 WBC (Bld) 9.9 % Critically low 20.5-60.0 [facility] Comment on above: Performed By: #### C BC #### [facility] [address] [place] [address] Dr. Stan Aceves MANUAL DIFF REQ NO Normal [facility] Comment on above: Performed By: #### C BC #### [facility] [address] [place] [address] Dr. Stan Aceves MCH (RBC) [Entitic mass] 25.7 pg Critically low 26.7-34 .0 [facility] Comment on above: Performed By: #### C BC #### [facility] [address] [place] [address] Dr. Stan Aceves MCHC (RBC) [Mass/Vol] 31.5 g/dL Normal 29.9-35.2 [facility] Comment on above: Performed By: #### C BC #### [facility] [address] [place] [address] Dr. Stan Aceves MCV (RBC) [Entitic vol] 81.6 fL Normal 81.0-99.0 [facility] Comment on above: Performed By: #### C BC #### [facility] [address] [place] [address] Dr. Stan Aceves MONO # 0.7 103/ul Normal 0.3-0.8 [facility] Comment on above: Performed By: #### C BC #### [facility] [address] [place] [address] Dr. Stan Aceves Monocytes/100 WBC (Bld) 7.3 % Normal 1.7-12.0 [facility] Comment on above: Performed By: #### C BC #### [facility] [address] [place] [address] Dr. Stan Aceves NEUT # 7.4 103/ul Critically high 1.4-6.5 [facility] Comment on above: Performed By: #### C BC #### [facility] [address] [place] [address] Dr. Stan Aceves Neutrophils/100 WBC (Bld) 80.8 % Critically high 43.0-75.0 [facility] Comment on above: Performed By: #### C BC #### [facility] [address] [place] [address] Dr. Stan Aceves Platelet mean volume (Bld) [Entitic vol] 8.2 fL Critically low 9.5-13.5 [facility] Comment on above: Performed By: #### C BC #### [facility] [address] [place] [address] Dr. Stan Aceves PLT 396 103/ul Normal 150-450 [facility] Comment on above: Performed By: #### C BC #### [facility] [address] [place] [address] Dr. Stan Aceves RBC 4.13 106/ul Critically low 4.20-5.40 [facility] Comment on above: Performed By: #### C BC #### [facility] [address] [place] [address] Dr. Stan Aceves WBC 9.2 103/ul Normal 4.0-11.0 [facility] Comment on above: Performed By: #### C BC #### [facility] [address] [place] [address] Dr. Stan Aceves GLYCOHEMOGLOBIN A1Con 2022 ADA RECOMMENDATION SEE BELOW Normal [facility] Comment on above: Result Comment: ADA RECOMMENDED LIMIT 4.0 - 6.0 ADA THERAPEUTIC TARGET < 7.0 ACTION SUGGESTED > 7.0 Performed By: #### A 1C #### [facility] [address] [place] [address] Dr. Stan Aceves Glucose [Mass/Vol] 126 mg/dL Normal [facility] Comment on above: Performed By: #### A 1C #### [facility] [address] [place] [address] Dr. Stan Aceves HbA1c (Bld) [Mass fraction] 6.0 % Normal 4.5-6.2 [facility] Comment on above: Performed By: #### A 1C #### [facility] [address] [place] [address] Dr. Stan Aceves IRONon 01-05-2023 Iron [Mass/Vol] 36.0 ug/dL Critically low 50.0-170.0 [facility] Comment on above: Performed By: #### I KAM #### [facility] [address] [place] [address] Dr. Stan Aceves MICROALBUMIN, RAND URon 12-16 mALB <1.3 Normal <=30.0 [facility] Comment on above: Performed By: #### M ALBR #### [facility] [address] [place] [address] Dr. Stan Aceves PROF 14(COMP METB)on 023 Albumin [Mass/Vol] 3.5 g/dL Normal 3.4-5.0 [facility] Comment on above: Performed By: #### T 4, CMP, TSH #### [facility] [address] [place] [address] Dr. Stan Aceves Albumin/Globulin [Mass ratio] 1.0 {ratio} Normal [facility] Comment on above: Performed By: #### T 4, CMP, TSH #### [facility] [address] [address] [address] Stan Aceves ALP [Catalytic activity/Vol] 105 U/L Normal 46-116 [facility] Comment on above: Performed By: #### T 4, CMP, TSH #### [facility] [address] [address] [address] Stan Aceves ALT [Catalytic activity/Vol] 20 U/L Normal 14-59 [facility] Comment on above: Performed By: #### T 4, CMP, TSH #### [facility] [address] [address] [address] Stan Aceves Anion gap [Moles/Vol] 12.1 mmol/L Normal [facility] Comment on above: Performed By: #### T 4, CMP, TSH #### [facility] [address] [place] [address] Dr. Stan Aceves AST [Catalytic activity/Vol] 14 U/L Critically low 15-37 [facility] Comment on above: Performed By: #### T 4, CMP, TSH #### [facility] [address] [place] [address] Dr. Stan Aceves Bilirubin [Mass/Vol] 0.3 mg/dL Normal 0.2-1.0 [facility] Comment on above: Performed By: #### T 4, CMP, TSH #### [facility] [address] [place] [address] Dr. Stan Aceves Calcium [Mass/Vol] 9.1 mg/dL Normal 8.5-10.1 [facility] Comment on above: Performed By: #### T 4, CMP, TSH #### [facility] [address] [address] [address] Stan Aceves Chloride [Moles/Vol] 103 mmol/L Normal 98-107 [facility] Comment on above: Performed By: #### T 4, CMP, TSH #### [facility] [address] [place] [address] Dr. Stan cAeves CO2 [Moles/Vol] 26.8 mmol/L Normal 21.0-32.[address] [facility] Comment on above: Performed By: #### T 4, CMP, TSH #### [facility] [address] [address] [address] Stan Aceves Creatinine [Mass/Vol] 0.84 mg/dL Normal 0.55-1.02 [facility] Comment on above: Performed By: #### T 4, CMP, TSH #### [facility] [address] [address] [address] Stan Aceves EGFR-AF BULGARIAN >60 Normal >=[address] [facility] Comment on above: Performed By: #### T 4, CMP, TSH #### [facility] [address] [address] [address] Stan Aceves EGFR-NON AF BULGARIAN >60 Normal >=60 [facility] Comment on above: Performed By: #### T 4, CMP, TSH #### [facility] [address] [address] [address] Stan Aceves Globulin (S) [Mass/Vol] 3.6 g/dL Normal [facility] Comment on above: Performed By: #### T 4, CMP, TSH #### [facility] [address] [address] [address] Stan Aceves Glucose [Mass/Vol] 84 mg/dL Normal 74-106 [facility] Comment on above: Performed By: #### T 4, CMP, TSH #### [facility] [address] [address] [address] Stan Aceves Potassium [Moles/Vol] 3.9 mmol/L Normal 3.5-5.1 [facility] Comment on above: Performed By: #### T 4, CMP, TSH #### [facility] [address] [address] [address] Stan Aceves Protein [Mass/Vol] 7.1 g/dL Normal 6.4-8.2 [facility] Comment on above: Performed By: #### T 4, CMP, TSH #### [facility] [address] [address] [address] Stan Aceves Sodium [Moles/Vol] 138 mmol/L Normal 136-145 [facility] Comment on above: Performed By: #### T 4, CMP, TSH #### [facility] [address] [place] [address] Dr. Stan Aceves Urea nitrogen [Mass/Vol] 12.0 mg/dL Normal 7.0-18.0 [facility] Comment on above: Performed By: #### T 4, CMP, TSH #### [facility] [address] [place] [address] Dr. Stan Aceves Urea nitrogen/Creatinine [Mass ratio] 14.3 mg/mg Normal [facility] Comment on above: Performed By: #### T 4, CMP, TSH #### [facility] [address] [place] [address] Dr. Stan Aceves T4on 01-05-2023 T4 [Mass/Vol] 8.70 ug/dL Normal 4.80-13.90 [facility] Comment on above: Performed By: #### T 4, CMP, TSH #### [facility] [address] [place] [address] Dr. Stan Aceves TSHon 01-05-2023 TSH 2.209 uIU/mL Normal 0.358-3.740 [facility] Comment on above: Performed By: #### T 4, CMP, TSH #### [facility] [address] [place] [address] Dr. Stan Aceves MRI BRAIN WO W [...] PATRICK PIERRE Date: 2022-04-27 10:16 Normal [facility] CREATININEon 04-08-2022 Creatinine [Mass/Vol] 0.91 mg/dL Normal 0.55-1.02 [facility] Comment on above: Performed By: #### C ONIEL #### [facility] [address] [place] [address] Dr. Stan Aceves EGFR-AF BULGARIAN >60 Normal >=60 [facility] Comment on above: Performed By: #### C ONIEL #### [facility] [address] [address] [address] Stan Aceves EGFR-NON AF BULGARIAN >60 Normal >=60 [facility] Comment on above: Performed By: #### C ONIEL #### [facility] [address] [place] [address] Dr. Stan Aceves CTA ABD/PELVIS WO W [...] PATRICK PIERRE Date: 2022-04-08 10:04 Normal [facility] Established Visit (Otolaryng ology)on 09-26-2018 Established [...] DAILY ATBEDTIME;Therapy: [id number] to Recorded Rx By: iZon; Dispense: 30 Days ; #:30; Refill: 0; ARIEL = N; Record; Last Updated By: Domenica Topete; 10/11/2017 1:16:16 PM Famotidine 20 MG Oral Tablet; TAKE 1 TABLET AT BEDTIME and TAKE 1 TABLET ASNEEDED during the day;Therapy: [id number] to Recorded Rx By: Zion; Dispense: 30 [...] Dispense: 30 Days ; #:30; Refill: 0; AREIL = N; Record; Last Updated By: Mc [...] Scheduling,Retrospect desmond By ProtocolAuthorization ; Requested for:15Sep2020; Perform:[facility]; Due:[id number]; Last Updated By:Carole Lanier; 09/26/2018 3:48:32 PM;Ordered; For:Acoustic neuroma; Ordered By:Shane Wilkerson;Radiologist to Determine Optimal Study : YWhat are the patient's signs and symptoms? : s/p CPA lesion resection Signatures Electronically signed by : Shane Wilkerson MD; Sep 26 2018 4:29PM EST (Author) Normal [facility] Vital Signs Date Time Vital Sign Value Performing Clinician Facility 08-22-2025 09:03-0400 Body height 160.02 cm La Aichholz SECURITY BUSINESS ANALYST-C Work Phone: [facility] 08-22-2025 09:03-0400 Body mass index (BMI) [Ratio] 26.7 kg/m2 La Aichholz SECURITY BUSINESS ANALYST-C Work Phone: [facility] 08-22-2025 09:03-0400 Body temperature 97.3 [degF] La Aichholz SECURITY BUSINESS ANALYST-C Work Phone: [facility] 08-22-2025 09:03-0400 Body weight 68.54 kg La Aichholz SECURITY BUSINESS ANALYST-C Work Phone: [facility] 08-22-2025 09:03-0400 Diastolic blood pressure 64 mm[Hg] La Aichholz SECURITY BUSINESS ANALYST-C Work Phone: [facility] 08-22-2025 09:03-0400 Heart rate 84 /min La Aichholz SECURITY BUSINESS ANALYST-C Work Phone: [facility] 08-22-2025 09:03-0400 Inhaled oxygen flow rate 3 L/min La Aichholz SECURITY BUSINESS ANALYST-C Work Phone: [facility] 08-22-2025 09:03-0400 Respiratory rate 20 /min La Aichholz SECURITY BUSINESS ANALYST-C Work Phone: [facility] 08-22-2025 09:03-0400 SaO2% (BldA) [Mass fraction] 98 % La Aichholz SECURITY BUSINESS ANALYST-C Work Phone: [facility] 08-22-2025 09:03-0400 Systolic blood pressure 98 mm[Hg] La Aichholz SECURITY BUSINESS ANALYST-C Work Phone: [facility] 07-31-2025 11:02-0400 Body height 160.02 cm La Aichholz SECURITY BUSINESS ANALYST-C Work Phone: [facility] 07-31-2025 11:02-0400 Body temperature 98.1 [degF] La Aichholz SECURITY BUSINESS ANALYST-C Work Phone: [facility] 07-31-2025 11:02-0400 Diastolic blood pressure 60 mm[Hg] La Aichholz SECURITY BUSINESS ANALYST-C Work Phone: [facility] 07-31-2025 11:02-0400 Heart rate 92 /min La Aichholz SECURITY BUSINESS ANALYST-C Work Phone: [facility] 07-31-2025 11:02-0400 Inhaled oxygen flow rate 3 L/min La Aichholz SECURITY BUSINESS ANALYST-C Work Phone: [facility] 07-31-2025 11:02-0400 Respiratory rate 18 /min La Aichholz SECURITY BUSINESS ANALYST-C Work Phone: [facility] 07-31-2025 11:02-0400 SaO2% (BldA) [Mass fraction] 95 % La Aichholz SECURITY BUSINESS ANALYST-C Work Phone: [facility] 07-31-2025 11:02-0400 Systolic blood pressure 98 mm[Hg] La Aichholz SECURITY BUSINESS ANALYST-C Work Phone: [facility] 06-26-2025 10:26-0400 Body temperature 98.4 [degF] La Aichholz SECURITY BUSINESS ANALYST Work Phone: [facility] 06-26-2025 10:26-0400 Diastolic blood pressure 84 mm[Hg] La Aichholz SECURITY BUSINESS ANALYST Work Phone: [facility] 06-26-2025 10:26-0400 Heart rate 85 /min La Aichholz SECURITY BUSINESS ANALYST Work Phone: [facility] 06-26-2025 10:26-0400 Respiratory rate 20 /min La Aichholz SECURITY BUSINESS ANALYST Work Phone: [facility] 06-26-2025 10:26-0400 SaO2% (BldA) [Mass fraction] 96 % La Aichholz SECURITY BUSINESS ANALYST Work Phone: [facility] 06-26-2025 10:26-0400 Systolic blood pressure 126 mm[Hg] La Aichholz SECURITY BUSINESS ANALYST Work Phone: [facility] 02-06-2025 10:08-0400 Body mass index (BMI) [Ratio] 25.05 kg/m2 La Aichholz SECURITY BUSINESS ANALYST Work Phone: [facility] 02-06-2025 10:08-0400 Body temperature 98.1 [degF] La Aichholz SECURITY BUSINESS ANALYST Work Phone: [facility] 02-06-2025 10:08-0400 Body weight 64.14 kg La Aichholz SECURITY BUSINESS ANALYST Work Phone: [facility] 02-06-2025 10:08-0400 Diastolic blood pressure 72 mm[Hg] La Aichholz SECURITY BUSINESS ANALYST Work Phone: [facility] 02-06-2025 10:08-0400 Heart rate 80 /min La Aichholz SECURITY BUSINESS ANALYST Work Phone: [facility] 02-06-2025 10:08-0400 Respiratory rate 20 /min La Aichholz SECURITY BUSINESS ANALYST Work Phone: [facility] 02-06-2025 10:08-0400 SaO2% (BldA) [Mass fraction] 97 % La Aichholz SECURITY BUSINESS ANALYST Work Phone: [facility] Comment on above: with 3L of 02 on 02-06-2025 10:08-0400 Systolic blood pressure 124 mm[Hg] La Aichholz SECURITY BUSINESS ANALYST Work Phone: [facility] 01-23-2025 11:44-0400 Body height 160 cm La Aichholz SECURITY BUSINESS ANALYST Work Phone: [facility] 01-23-2025 11:44-0400 Body mass index (BMI) [Ratio] 25.15 kg/m2 La Aichholz SECURITY BUSINESS ANALYST Work Phone: [facility] 01-23-2025 11:44-0400 Body temperature 97.81 [degF] La Pack SECURITY BUSINESS ANALYST Work Phone: [facility] 01-23-2025 11:44-0400 Body weight 64.41 kg La Pack SECURITY BUSINESS ANALYST Work Phone: [facility] 01-23-2025 11:44-0400 Diastolic blood pressure 56 mm[Hg] La Pack SECURITY BUSINESS ANALYST Work Phone: [facility] 01-23-2025 11:44-0400 Heart rate 98 /min La Pack SECURITY BUSINESS ANALYST Work Phone: [facility] 01-23-2025 11:44-0400 Respiratory rate 24 /min La Pack SECURITY BUSINESS ANALYST Work Phone: [facility] 01-23-2025 11:44-0400 SaO2% (BldA) [Mass fraction] 97 % La Pack SECURITY BUSINESS ANALYST Work Phone: [facility] 01-23-2025 11:44-0400 Systolic blood pressure 110 mm[Hg] La Pack SECURITY BUSINESS ANALYST Work Phone: [facility] 01-14-2025 09:30-0500 Body height 160 cm Ian Soares MD Work Phone: [facility] 01-14-2025 09:30-0500 Body mass index (BMI) [Ratio] 25.15 kg/m2 Ian Soares MD Work Phone: [facility] 01-14-2025 09:30-0500 Body temperature 96.6 [degF] Ian Soares MD Work Phone: [facility] 01-14-2025 09:30-0500 Body weight 64.41 kg Ian Soares MD Work Phone: [facility] 01-14-2025 09:30-0500 Diastolic blood pressure 66 mm[Hg] Ian Soares MD Work Phone: [facility] 01-14-2025 09:30-0500 Heart rate 85 /min Ian Soares MD Work Phone: [facility] 01-14-2025 09:30-0500 Respiratory rate 22 /min Ian Soares MD Work Phone: [facility] 01-14-2025 09:30-0500 SaO2% (BldA) [Mass fraction] 97 % Ian Soares MD Work Phone: [facility] 01-14-2025 09:30-0500 Systolic blood pressure 130 mm[Hg] Ian Soares MD Work Phone: [facility] 01-04-2025 09:09-0500 Body height 160.02 cm Daniel Cardoso SECURITY BUSINESS ANALYST-C Work Phone: [facility] 01-04-2025 09:09-0500 Body mass index (BMI) [Ratio] 24.7 kg/m2 Daniel Cardoso SECURITY BUSINESS ANALYST-C Work Phone: [facility] 01-04-2025 09:09-0500 Body weight 63.5 kg Daniel Cardoso SECURITY BUSINESS ANALYST-C Work Phone: [facility] 01-04-2025 09:09-0500 Diastolic blood pressure 56 mm[Hg] Daniel Cardoso SECURITY BUSINESS ANALYST-C Work Phone: [facility] 01-04-2025 09:09-0500 Heart rate 82 /min Daniel Cardoso SECURITY BUSINESS ANALYST-C Work Phone: [facility] 01-04-2025 09:09-0500 Inhaled oxygen flow rate 3 L/min Daniel Cardoso SECURITY BUSINESS ANALYST-C Work Phone: [facility] 01-04-2025 09:09-0500 Respiratory rate 18 /min Daniel Cardoso SECURITY BUSINESS ANALYST-C Work Phone: [facility] 01-04-2025 09:09-0500 SaO2% (BldA) [Mass fraction] 97 % Daniel Mccormicktrick SECURITY BUSINESS ANALYST-C Work Phone: [facility] 01-04-2025 09:09-0500 Systolic blood pressure 104 mm[Hg] Daniel Castorenapatrick SECURITY BUSINESS ANALYST-C Work Phone: [facility] 01-01-2025 13:20-0500 Body temperature 98.1 [degF] Stephen Furlong DO [facility] 01-01-2025 13:20-0500 Diastolic blood pressure 84 mm[Hg] Stephen Furlong DO Work Phone[facility] 01-01-2025 13:20-0500 Heart rate 73 /min Stephen Furlong DO Work Phone: [facility] [employer] [facility] 01-01-2025 13:20-0500 Respiratory rate 16 /min [facility] 01-01-2025 13:20-0500 SaO2% (BldA) [Mass fraction] 96 % Stephen Furlong [facility] 01-01-2025 13:20-0500 Systolic blood pressure 129 mm[Hg] Stephen Furlong DO Work Phone[facility] 12-28-2024 14:56-0500 Body temperature 97.2 [degF] Stephen Furlong [facility] 12-28-2024 14:56-0500 Diastolic blood pressure 79 mm[Hg] Stephen Furlong DO Work Phone[facility] 12-28-2024 14:56-0500 Heart rate 79 /min Stephen Furlong DO [facility] 12-28-2024 14:56-0500 Respiratory rate 18 /min Stephen Furlong DO Work Phone: [facility] [employer] 12-28-2024 14:56-0500 SaO2% (BldA) [Mass fraction] 96 % Stephen Furlong DO Work Phone: [facility] [employer] 12-28-2024 14:56-0500 Systolic blood pressure 150 mm[Hg] Stephen Furlong DO Work Phone: [facility] [employer] 12-25-2024 17:23-0500 Body mass index (BMI) [Ratio] 24.03 kg/m2 Stephen Furlong DO Work Phone: [facility] [employer] 12-25-2024 17:23-0500 Body temperature 97.9 [degF] Stephen Furlong DO Work Phone: [facility] [employer] 12-25-2024 17:23-0500 Body weight 63.5 kg Stephen Furlong DO Work Phone: [facility] [employer] 12-25-2024 17:23-0500 Diastolic blood pressure 75 mm[Hg] Stephen Furlong DO Work Phone: [facility] [employer] 12-25-2024 17:23-0500 Heart rate 94 /min Stephen Furlong DO Work Phone: [facility] [employer] 12-25-2024 17:23-0500 Respiratory rate 18 /min Stephen Furlong DO Work Phone: [facility] [employer] 12-25-2024 17:23-0500 SaO2% (BldA) [Mass fraction] 93 % Stephen Furlong DO Work Phone: [facility] [employer] 12-25-2024 17:23-0500 Systolic blood pressure 124 mm[Hg] Stephen Furlong DO Work Phone: [facility] [employer] [facility] 12-18-2024 19:16-0500 Body height 162.6 cm Stephen Furlong DO Work Phone: [facility] [employer] [facility] 12-18-2024 19:16-0500 Body temperature 97.81 [degF] Stephen Furlong DO Work Phone: [facility] [employer] [facility] 12-18-2024 19:16-0500 Diastolic blood pressure 65 mm[Hg] Stephen Furlong DO Work Phone: [facility] [employer] [facility] 12-18-2024 19:16-0500 Heart rate 82 /min Stephen Furlong DO Work Phone: [facility] [employer] [facility] 12-18-2024 19:16-0500 Respiratory rate 18 /min Stephen Furlong DO Work Phone: [facility] 12-18-2024 19:16-0500 SaO2% (BldA) [Mass fraction] 92 % Stephen Furlong DO Work Phone: [facility] 12-18-2024 19:16-0500 Systolic blood pressure 112 mm[Hg] Stephen Furlong DO Work Phone: [facility] 12-14-2024 14:05-0500 Heart rate 91 /min Daniel Cardoso SECURITY BUSINESS ANALYST-C Work Phone: [facility] 12-14-2024 14:05-0500 Respiratory rate 18 /min Daniel Cardoso SECURITY BUSINESS ANALYST-C Work Phone: [facility] 12-14-2024 09:25-0500 Body temperature 97.5 [degF] Daniel Cardoso SECURITY BUSINESS ANALYST-C Work Phone: [facility] 12-14-2024 09:25-0500 Diastolic blood pressure 57 mm[Hg] Daniel Cardoso SECURITY BUSINESS ANALYST-C Work Phone: [facility] 12-14-2024 09:25-0500 Inhaled oxygen flow rate 4 L/min Daniel Cardoso SECURITY BUSINESS ANALYST-C Work Phone: [facility] 12-14-2024 09:25-0500 SaO2% (BldA) [Mass fraction] 90 % Daniel Cardoso SECURITY BUSINESS ANALYST-C Work Phone: [facility] 12-14-2024 09:25-0500 Systolic blood pressure 104 mm[Hg] Daniel Cardoso SECURITY BUSINESS ANALYST-C Work Phone: [facility] 12-14-2024 06:00-0500 Body weight 65.3 kg Daniel Cardoso SECURITY BUSINESS ANALYST-C Work Phone: [facility] 12-13-2024 17:05-0500 Body height 162.56 cm Daniel Cardoso SECURITY BUSINESS ANALYST-C Work Phone: [facility] 12-11-2024 12:00-0500 Inhaled oxygen concentration 40 % Daniel Cardoso SECURITY BUSINESS ANALYST-C Work Phone: [facility] 09-20-2024 09:43-0500 Body height 160 cm Daniel Cardoso SECURITY BUSINESS ANALYST Work Phone: [facility] 09-20-2024 09:43-0500 Body mass index (BMI) [Ratio] 24.13 kg/m2 Daniel Cardoso SECURITY BUSINESS ANALYST Work Phone: [facility] 09-20-2024 09:43-0500 Body temperature 96.69 [degF] Daniel Cardoso SECURITY BUSINESS ANALYST Work Phone: [facility] 09-20-2024 09:43-0500 Body weight 61.78 kg Daniel Cardoso SECURITY BUSINESS ANALYST Work Phone: [facility] 09-20-2024 09:43-0500 Diastolic blood pressure 74 mm[Hg] Daniel Cardoso SECURITY BUSINESS ANALYST Work Phone: [facility] 09-20-2024 09:43-0500 Heart rate 85 /min Daniel Cardoso SECURITY BUSINESS ANALYST Work Phone: [facility] 09-20-2024 09:43-0500 Respiratory rate 18 /min Daniel Mccormicktrick SECURITY BUSINESS ANALYST Work Phone: [facility] 09-20-2024 09:43-0500 SaO2% (BldA) [Mass fraction] 94 % Daniel Mccormicktrick SECURITY BUSINESS ANALYST Work Phone: [facility] 09-20-2024 09:43-0500 Systolic blood pressure 128 mm[Hg] Daniel Mccormicktrick SECURITY BUSINESS ANALYST Work Phone: [facility] Healthcare Encounters Encounter Date Encounter Type Care Provider Facility Start: 08-22-2025 End: 08-22-2025 ambulatory La Pack SECURITY BUSINESS ANALYST-C Work Phone: [facility] Work Phone: Start: 08-22-2025 End: 08-22-2025 Patient encounter procedure La Pack SECURITY BUSINESS ANALYST-C -[facility] Work Phone: Start: 08-12-2025 Non-patient / Non-visit La cruz SECURITY BUSINESS ANALYST-C -[facility] Work Phone: Start: 07-31-2025 End: 07-31-2025 ambulatory La Pack SECURITY BUSINESS ANALYST-C Work Phone: [facility] Work Phone: Start: 07-31-2025 End: 07-31-2025 Patient encounter procedure La Pack SECURITY BUSINESS ANALYST-C -[facility] Work Phone: Start: 07-18-2025 Patient encounter procedure La Pack SECURITY BUSINESS ANALYST-C Work Phone: [facility] Start: 07-10-2025 End: 07-10-2025 Clinisync Result Encounter La Pack SECURITY BUSINESS ANALYST Work Phone: [facility] External Department Unsolicited Start: 07-10-2025 End: 07-10-2025 Clinisync Result Encounter La Pack SECURITY BUSINESS ANALYST Work Phone: [facility] External Department Unsolicited Start: 06-26-2025 End: 06-26-2025 Bamboo flowsheet La Ramone SECURITY BUSINESS ANALYST Work Phone: [facility] Start: 06-26-2025 End: 06-26-2025 Bamboo flowsheet La Pack SECURITY BUSINESS ANALYST Work Phone: [facility] Start: 06-26-2025 End: 06-26-2025 Office outpatient visit 25 minutes La Pack SECURITY BUSINESS ANALYST Work Phone: [facility] Comment on above: Edema of both lower [...] 06-13-2025 End: 06-13-2025 Orders Only La Pack SECURITY BUSINESS ANALYST Work Phone: [facility] Comment on above: Iron deficiency (Daisy columba Dx); Abnormal CBC Start: 06-07-2025 End: 06-09-2025 Refill Ian Soares MD Work Phone: [facility] Comment on above: Chronic obstructive pulmonary disease, unspecified COPD type (HCC) Start: 06-05-2025 End: 06-05-2025 Refill La Ramone SECURITY BUSINESS ANALYST Work Phone: [facility] Comment on above: Primary hypertension (Primary Dx); Hyperlipidemia, unspecified ; Vitamin D deficiency; Type 2 diabetes mellitus without complications (HCC); Gastro-esophageal reflux disease without esophagitis; Depression, unspecified Start: 05-06-2025 End: 05-06-2025 Refill La Michellez SECURITY BUSINESS ANALYST Work Phone: [facility] Comment on above: Asthma with COPD (ch ronic obstructive pulmonary disease) ([facility]) Start: 04-16-2025 Patient encounter procedure La Pack SECURITY BUSINESS ANALYST Work Phone: [facility] Start: 04-01-2025 End: 04-01-2025 Refill La Ramone SECURITY BUSINESS ANALYST Work Phone: [facility] Comment on above: Depression, unspecif ied ([facility]) Osteoarthritis, unsp ecified osteoarthritis type, unspecified site (Primary Dx) Start: 03-25-2025 End: 03-25-2025 Clinisync Result Encounter La Ramone SECURITY BUSINESS ANALYST Work Phone: [facility] External Department Unsolicited Start: 03-25-2025 End: 03-25-2025 Clinisync Result Encounter La Ramone SECURITY BUSINESS ANALYST Work Phone: [facility] External Department Unsolicited Start: 03-25-2025 End: 03-25-2025 Orders Only La Dalehholz SECURITY BUSINESS ANALYST Work Phone: [facility] Comment on above: Acquired hypothyroid ism (CMS/[facility]) (Primary Dx) Start: 02-25-2025 End: 02-25-2025 Refill Ian Soares MD Work Phone: [facility] Comment on above: Asthma with COPD (ch ronic obstructive pulmonary disease) ([facility]); Chronic obstructive pulmonary disease, unspecified COPD type ([facility]) Start: 02-21-2025 End: 02-21-2025 Clinisync Result Encounter Generic External Data Provider [facility] External Department Unsolicited Start: 02-21-2025 End: 02-21-2025 Clinisync Result Encounter Generic External Data Provider [facility] External Department Unsolicited Start: 02-20-2025 End: 02-20-2025 Refill La Ramone SECURITY BUSINESS ANALYST Work Phone: [facility] Comment on above: 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 Start: 02-19-2025 End: 02-19-2025 Orders Only La Aichholz SECURITY BUSINESS ANALYST Work Phone: [facility] Comment on above: Elevated TSH Start: 02-18-2025 End: 02-18-2025 Clinisync Result Encounter Laevan Crossrashaad SECURITY BUSINESS ANALYST Work Phone: [facility] External Department Unsolicited Start: 02-18-2025 End: 02-18-2025 Clinisync Result Encounter Laevan Crossrashaad SECURITY BUSINESS ANALYST Work Phone: [facility] External Department Unsolicited Start: 02-06-2025 End: 02-06-2025 Office outpatient visit 25 minutes La Dalecarmenrashaad SECURITY BUSINESS ANALYST Work Phone: [facility] Comment on above: Type 2 diabetes shanthi itus without complication, without long- term current use of insulin ([facility]/HCC) (Primary Dx); Chronic obstructive pulmonary disease, unspecified COPD type (CMS/HCC); Primary hypertension ([facility]); Vitamin D deficiency; Iron deficiency anemia due to chronic blood loss; Cigarette nicotine dependence without complication; Recurrent major depressive disorder, in full remission (CMS/HCC); Generalized anxiety disorder (CMS/HCC); Screening mammogram, encounter for; Other hyperlipidemia (CMS/[facility]); Acute hypoxic respiratory failure (CMS/HCC) Start: 02-06-2025 End: 02-06-2025 ambulatory LA AICHHOLZ Not Available Start: 01-23-2025 End: 01-23-2025 Office outpatient visit 25 minutes La Ramone SECURITY BUSINESS ANALYST Work Phone: [facility] Comment on [...] day discharge Ian Soares MD Work Phone: [facility] Comment on above: Influenza A (Primary Dx); [...] Start: 01-04-2025 End: 01-04-2025 ambulatory Daniel Cardoso SECURITY BUSINESS ANALYST-C Work Phone: [facility] Work Phone: Start: 01-04-2025 End: 01-04-2025 Patient encounter procedure Daniel Cardoso SECURITY BUSINESS ANALYST-C [facility] Work Phone: Start: 01-01-2025 End: [...] Chronic obstructive pulmonary disease, unspecified COPD type ([facility]-HCC) (Primary Dx); Influenza A; Other abnormalities of gait and mobility; Anxiety; Cigarette smoker Start: 12-18-2024 End: 12-24-2024 ambulatory Stephen Macias DO Work Phone: [facility] Comment on above: Acute hypoxic respir atory failure ([facility]-HCC) (Primary Dx); Chronic obstructive pulmonary disease, unspecified COPD type ([facility]-HCC); Influenza A; Aspiration pneumonia, unspecified aspiration pneumonia type, unspecified laterality, unspecified part of lung ([facility]-HCC); Depression, unspecified depression type; Cigarette smoker; Type 2 diabetes mellitus without complication, without long-term current use of insulin ([facility]); Anxiety Start: 12-13-2024 Non-patient / Non-visit Margo Mccormicktrick SECURITY BUSINESS ANALYST-C Work Phone: [facility] Work Phone: Start: 12-10-2024 Non-patient / Non-visit Margo Mccormicktrick SECURITY BUSINESS ANALYST-C Work Phone: [facility] Work Phone: Start: 12-10-2024 Non-patient / Non-visit Margo Castorenapatrick SECURITY BUSINESS ANALYST-C Work Phone: [facility] Work Phone: Start: 12-10-2024 Non-patient / Non-visit Margo Mccormicktrick SECURITY BUSINESS ANALYST-C Work Phone: [facility] Work Phone: Start: 12-09-2024 End: 12-14-2024 Evaluation and management of inpatient Daniel Staffordk SECURITY BUSINESS ANALYST-C Work Phone: [facility] [place] [facility] Work Phone: Start: 12-09-2024 End: 12-09-2024 ambulatory UNKNOWN PROVIDER Facility:[facility] Start: 12-09-2024 End: 12-11-2024 Clinisync Result Encounter [...] with COPD (ch ronic obstructive pulmonary disease) ([facility]) Start: 11-12-2024 End: 11-14-2024 Refill Daniel Cardoso SECURITY BUSINESS ANALYST Work Phone: [facility] Comment on above: 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 Start: 10-22-2024 End: 10-22-2024 Refill Daniel Cardoso SECURITY BUSINESS ANALYST Work Phone: [facility] Comment on above: Gastro-esophageal re flux disease without esophagitis Start: 10-22-2024 End: 10-22-2024 Refill Daniel Cardoso SECURITY BUSINESS ANALYST Work Phone: [facility] Comment on above: Depression, unspecif ied ([facility] [facility]) Start: 09-20-2024 End: 09-20-2024 Bamboo flowsheet Daniel Cardoso SECURITY BUSINESS ANALYST Work Phone: [facility] Start: 09-20-2024 End: 09-20-2024 Bamboo flowsheet Daniel Cardoso SECURITY BUSINESS ANALYST Work Phone: [facility] Start: 09-20-2024 End: 09-20-2024 Office outpatient visit 15 minutes Daniel Cardoso SECURITY BUSINESS ANALYST Work Phone: [facility] Comment on above: Primary hypertension ([facility]) (Primary Dx); Type 2 diabetes mellitus without complication, without long-term current use of insulin ([facility]); Other hyperlipidemia ([facility]); Asthma with COPD (chronic obstructive pulmonary disease) ([facility]); Non-recurrent acute serous otitis media of left ear Start: 09-20-2024 End: 09-20-2024 ambulatory DANIEL MCCORMICKTRICK Not Available Start: 09-11-2024 End: 09-11-2024 Refill Daniel Mccormicktrick SECURITY BUSINESS ANALYST Work Phone: [facility] Comment on above: Type 2 diabetes shanthi itus without complications ([facility]) Hyperlipidemia, unsp ecified ([facility]) Other bursitis of el bow, left elbow Start: 09-03-2024 End: 09-03-2024 Refill Ailyn Eng [facility] Comment on above: Asthma with COPD (ch ronic obstructive pulmonary disease) ([facility]) Start: 08-27-2024 End: 08-27-2024 Refill Daniel Mccormicktrick SECURITY BUSINESS ANALYST Work Phone: [facility] Comment on above: Asthma with COPD (ch ronic obstructive pulmonary disease) ([facility]) Start: 08-01-2024 End: 08-02-2024 Refill Arturo SHAFER [facility] Comment on above: Hyperlipidemia, unsp ecified ([facility]); Other bursitis of elbow, left elbow; Depression, unspecified ([facility]); Type 2 diabetes mellitus without complications ([facility]) Start: 07-25-2024 End: 07-26-2024 Refill Arturo Chanel MA [facility] Comment on above: Other bursitis of el bow, left elbow Start: 07-23-2024 End: 07-23-2024 Refill Daniel Silvazpatrick SECURITY BUSINESS ANALYST Work Phone: [facility] Comment on above: Type 2 diabetes shanthi itus without complications ([facility]); Hyperlipidemia, unspecified ([facility]) Start: 07-07-2024 End: 07-07-2024 Chart abstracting Daniel Walker SECURITY BUSINESS ANALYST Work Phone: [facility] Comment on above: 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 (Primary Dx) Start: 12-15-2023 End: 12-16-2023 ambulatory Zamzam Wheeler Facility:[facility] Start: 12-15-2023 End: 12-15-2023 Patient encounter procedure Zamzam Wheeler [facility] Start: 11-30-2023 End: 12-01-2023 ambulatory Zamzam Wheeler Facility:[facility] Start: 10-28-2023 End: 11-10-2023 Pre-admission assessment Zamzam Wheeler [facility] Start: 01-05-2023 End: 01-06-[address] GIANNA ISABEL Facility:[facility] Start: 04-26-2022 End: 04-27-[address] GIANNA ISABEL Facility:[facility] Start: 04-08-2022 End: 04-09-[address] GIANNA ISABEL Facility:[facility] Procedures Date Procedure Procedure Detail Performing Clinician Start: 07-10-2025 ALL CBC WITH AUTO DIFF La Ramone SECURITY BUSINESS ANALYST Work Phone: Start: 03-25-2025 ALL THYROID STIM HORMONE La Pack SECURITY BUSINESS ANALYST Work Phone: Start: 03-25-2025 ALL THYROXINE (T4) FREE La Pack SECURITY BUSINESS ANALYST Work Phone: Start: 02-21-2025 NM ORLY PERF SPECT REST STR Generic External Data Provider Start: 02-18-2025 MM TOMOSYNTHESIS SCR EENING BI La Pack SECURITY BUSINESS ANALYST Work Phone: Start: 02-18-2025 ALL CBC WITH AUTO DIFF La Michellez SECURITY BUSINESS ANALYST Work Phone: Start: 02-18-2025 Mammography La Courtney cruz SECURITY BUSINESS ANALYST Work Phone: Start: 12-11-2024 Plain chest X-ray Taylor any Cardoso SECURITY BUSINESS ANALYST-C Work Phone: Start: 12-10-2024 Plain chest X-ray Taylor any Cardoso SECURITY BUSINESS ANALYST-C Work Phone: Start: 12-09-2024 Plain X-ray abdomen Katy ttany Cardoso SECURITY BUSINESS ANALYST-C Work Phone: Start: 12-09-2024 Plain chest X-ray Taylor any Cardoso SECURITY BUSINESS ANALYST-C Work Phone: Start: 12-09-2024 BLOOD CULTURE 2 Generic External Data Provider Start: 12-09-2024 Aerobic microbial culture Daniel Cardoso SECURITY BUSINESS ANALYST-C Work Phone: Start: 12-09-2024 Bacteria identified in Blood by Culture Daniel Cardoso SECURITY BUSINESS ANALYST-C Work Phone: Start: 12-09-2024 Gram stain microscopy B bernardy Cardoso SECURITY BUSINESS ANALYST-C Work Phone: Start: 09-20-2024 Hemoglobin glycosyla brendan a1c Daniel Cardoso SECURITY BUSINESS ANALYST Work Phone: Start: 01-16-2024 Mammography Daniel F itzpatrick SECURITY BUSINESS ANALYST Work Phone: Plan of Treatment Date Care Activity Detail Author Start: 01-30-2027 Glaucoma screening Diabetes: R etinopathy Screening [facility] Start: 05-08-2026 Medicare Annual Well ness (AWV) Medicare Annual Wellness (AWV) [facility] Start: 02-18-2026 Screening for malign ant neoplasm of breast Mammogram [facility] Start: 02-18-2026 Urine screening for protein Diabetes: Urine Protein Screening [facility] Start: 11-14-2025 Screening for malign ant neoplasm of colon [facility] Start: 08-22-2025 Patient referral [facility] Work Phone: Start: 08-20-2025 Hemoglobin A1c measurement Diabetes: Hemoglobin A1C [facility] Start: 07-31-2025 End: 07-31-2025 Patient encounter procedure 07/31/2025 11:00 AM EDT Office Visit [facility] [address] [place] [address] La Pack, GREG [address] [place] [phone] [facility] Start: 07-15-2025 Influenza vaccination [facility] Start: 06-26-2025 End: 06-26-2026 Basic metabolic 1998 panel - Serum or Plasma Basic metabolic panel Lab Routine Primary hypertension Type 2 diabetes mellitus without complication, without long-term current use of insulin (HCC) Edema of both lower legs Expected: 06/26/2025 (Approximate), Expires: 06/26/2026 [facility] Work Phone: Comment on above: Expected: 06/26/2025 (Approximate), Expires: 06/26/2026 Start: 06-26-2025 End: 06-26-2025 Patient encounter procedure [facility] Comment on above: Primary hypertension (Primary Dx); Chronic obstructive pulmonary disease, unspecified COPD type (HCC); Type 2 diabetes mellitus without complication, without long-term current use of insulin (HCC); Cigarette nicotine dependence without complication Start: 05-13-2025 Influenza vaccination Influenza Vacc ine (#1) [facility] Comment on above: Postponed from 07/15 (Patient Refused) Start: 05-07-2025 End: 05-07-2025 Patient encounter procedure 05/07/2025 10:00 AM EDT Office Visit [facility] [address] [place] [address] La Pack, GREG [address] [place] [phone] [facility] Start: 04-16-2025 End: 04-16-2025 Patient encounter procedure [facility] Start: 03-25-2025 End: 03-25-2026 Thyrotropin [Units/volume] in Serum or Plasma TSH Lab Routine Acquired hypothyroidism (CMS/HCC) Expected: 03/25/2025 (Approximate), Expires: 03/25/2026 [facility] Work Phone: Comment on above: Expected: 03/25/2025 (Approximate), Expires: 03/25/2026 Start: 03-25-2025 End: 03-25-2026 Thyroxine (T4) free [Mass/volume] in Serum or Plasma T4, free Lab Routine Acquired hypothyroidism (CMS/HCC) Expected: 03/25/2025 (Approximate), Expires: 03/25/2026 [facility] Comment on above: Expected: 03/25/2025 (Approximate), Expires: 03/25/2026 Start: 03-22-2025 End: 02-20-2026 CBC W Auto Differential panel - Blood CBC and differential Lab Routine Iron deficiency anemia due to chronic blood loss Expected: 03/22/2025 (Approximate), Expires: 02/20/2026 [facility] Comment on above: Expected: 03/22/2025 (Approximate), Expires: 02/20/2026 Start: 03-22-2025 End: 02-20-2026 Iron and Iron binding capacity panel - Serum or Plasma Iron level Lab Routine Iron deficiency anemia due to chronic blood loss Expected: 03/22/2025 (Approximate), Expires: 02/20/2026 [facility] Work Phone: Comment on above: Expected: 03/22/2025 (Approximate), Expires: 02/20/2026 Start: 03-21-2025 End: 02-19-2026 Thyrotropin [Units/volume] in Serum or Plasma TSH Lab Routine Elevated TSH Expected: 03/21/2025 (Approximate), Expires: 02/19/2026 [facility] Work Phone: Comment on above: Expected: 03/21/2025 (Approximate), Expires: 02/19/2026 Start: 03-21-2025 End: 02-19-2026 Thyroxine (T4) free [Mass/volume] in Serum or Plasma T4, free Lab Routine Elevated TSH Expected: 03/21/2025 (Approximate), Expires: 02/19/2026 [facility] Comment on above: Expected: 03/21/2025 (Approximate), Expires: 02/19/2026 Start: 03-20-2025 Hemoglobin A1c measurement Diabetes: Hemoglobin A1C [facility] Start: 03-14-2025 Glaucoma screening Diabetes: R etinopathy Screening [facility] Start: 03-08-2025 Medicare Annual Well ness (AWV) Medicare Annual Wellness (AWV) [facility] Start: 02-06-2025 End: 02-06-2026 25-hydroxyvitamin D3 [Mass/volume] in Serum or Plasma Vitamin D 25 hydroxy Lab Routine Vitamin D deficiency Expected: 02/06/2025 (Approximate), Expires: 02/06/2026 [facility] Comment on above: Expected: 02/06/2025 (Approximate), Expires: 02/06/2026 Start: 02-06-2025 End: 02-06-2026 CBC W Auto Differential panel - Blood CBC and differential Lab Routine Iron deficiency anemia due to chronic blood loss Expected: 02/06/2025 (Approximate), Expires: 02/06/2026 [facility] Comment on above: Expected: 02/06/2025 (Approximate), Expires: 02/06/2026 Start: 02-06-2025 End: 02-06-2026 Comprehensive metabolic 2000 panel - Serum or Plasma Comprehensive metabolic panel Lab Routine Primary hypertension (CMS/HCC) Type 2 diabetes mellitus without complication, without long-term current use of insulin (CMS/HCC) Expected: 02/06/2025 (Approximate), Expires: 02/06/2026 [facility] Comment on above: Expected: 02/06/2025 (Approximate), Expires: 02/06/2026 Start: 02-06-2025 End: 02-06-2026 Ferritin [Mass/volume] in Serum or Plasma Ferritin Lab Routine Iron deficiency anemia due to chronic blood loss Expected: 02/06/2025 (Approximate), Expires: 02/06/2026 [facility] Comment on above: Expected: 02/06/2025 (Approximate), Expires: 02/06/2026 Start: 02-06-2025 End: 02-06-2026 Hemoglobin A1c/Hemoglobin.total in Blood Hemoglobin A1c Lab Routine Type 2 diabetes mellitus without complication, without long-term current use of insulin ([facility]) Expected: 02/06/2025 (Approximate), Expires: 02/06/2026 [facility] Comment on above: Expected: 02/06/2025 (Approximate), Expires: 02/06/2026 Start: 02-06-2025 End: 02-06-2026 Iron + transferrin + TIBC Iron + transferrin + TIBC Lab Routine Iron deficiency anemia due to chronic blood loss Expected: 02/06/2025 (Approximate), Expires: 02/06/2026 [facility] Comment on above: Expected: 02/06/2025 (Approximate), Expires: 02/06/2026 Start: 02-06-2025 End: 02-06-2026 Lipid 1996 panel - Serum or Plasma Lipid panel Lab Routine Other hyperlipidemia ([facility]) Expected: 02/06/2025 (Approximate), Expires: 02/06/2026 [facility] Comment on above: Expected: 02/06/2025 (Approximate), Expires: 02/06/2026 Start: 02-06-2025 End: 04-08-2026 MG Breast - bilateral Screening Bilateral screening mammogram Imaging Routine Screening mammogram, encounter for Expected: 02/06/2025 (Approximate), Expires: 04/08/2026 [facility] Work Phone: Comment on above: Expected: 02/06/2025 (Approximate), Expires: 04/08/2026 Start: 02-06-2025 End: 02-06-2026 Microalbumin/Creatinine panel in random Urine Microalbumin / creatinine, urine ratio Lab Routine Primary hypertension ([facility]) Type 2 diabetes mellitus without complication, without long-term current use of insulin ([facility]) Expected: 02/06/2025 (Approximate), Expires: 02/06/2026 [facility] Comment on above: Expected: 02/06/2025 (Approximate), Expires: 02/06/2026 Start: 02-06-2025 End: 02-06-2026 Thyrotropin [Units/volume] in Serum or Plasma TSH Lab Routine Generalized anxiety disorder ([facility]) Expected: 02/06/2025 (Approximate), Expires: 02/06/2026 [facility] Comment on above: Expected: 02/06/2025 [...] [facility] [address] [place] [phone] La Pack NP [address] [place] [phone] [facility] Start: 01-31-2025 End: 01-31-2025 Patient encounter procedure 01/31/2025 11:00 AM EDT Office Visit TIA MIRANDA [address] [place] [address] Tashia Polk PA [address] [place] [address] TIA MIRANDA Start: 01-15-2025 Screening for malign ant neoplasm of breast Mammogram [facility] Start: 01-14-2025 End: 01-14-2025 Patient encounter procedure 01/14/2025 9:30 AM EST Office Visit [facility] [address] [place] [phone] Ian Soares MD [address] [place] [phone] [facility] on above: Arrived Start: 01-11-2025 Urine screening for protein Diabetes: Urine Protein Screening [facility] Start: 12-20-2024 End: 12-20-2024 Patient encounter procedure 12/20/2024 10:00 AM EST Office Visit [facility] [address] [place] [phone] Daniel Cardoso, GREG [address] [place] [address] [facility] Start: 12-14-2024 [facility] Start: 12-13-2024 Administration of prophylactic treatment [facility] Start: 12-13-2024 Referral to rehabilitation physician [facility] Start: 12-09-2024 [facility] Start: 12-09-2024 [facility] Start: 12-09-2024 Consultation [facility] Start: 12-09-2024 Hospital admission [facility] Start: 12-09-2024 Bacteria identified in Blood by Culture Blood Culture [facility] Start: 12-09-2024 Respiratory Ventilat ion, 24-96 Consecutive Hours Respiratory Ventilation, 24-96 Consecutive Hours [facility] Start: 11-27-2024 Pneumococcal Vaccine : 65+ Years (1 of 2 - PCV) Pneumococcal Vaccine: 65+ Years (1 of 2 - PCV) [facility] Comment on above: Postponed from 04/21 (Other Patient Reasons) Start: 10-10-2024 End: 10-10-2024 Patient encounter procedure 10/10/2024 9:20 AM EST Office Visit [facility] [address] [place] [address] Tashia Polk PA [address] [place] [address] [facility] [address] Start: 09-20-2024 End: 09-20-2024 [facility] on above: Arrived Start: 07-18-2024 End: 07-18-2024 Patient encounter procedure [facility] [address] Start: 07-15-2024 Influenza vaccination N [facility] Start: 01-13-2024 Hemoglobin A1c measurement Diabetes: Hemoglobin A1C [facility] Start: 2018 Fall Risk Screening Fall Risk Screen ing [facility] Start: 2003 Administration of varicella zoster vaccine Zoster (Shingles) Vaccine (1 of 2) [facility] Start: 1972 DTaP,Tdap and Td Vaccines (1 - Tdap) DTaP,Tdap and Td Vaccines (1 - Tdap) [facility] Start: 1971 Adult BMI Screening Adult BMI Screen ing [facility] Start: 1971 Diabetic foot examination Diabetic Foot Exam [facility] Start: 1965 Depression Screening Depression Scre ening [facility] Start: 1965 Tobacco Screening Tobacco Screening [facility] Start: 1959 Pneumococcal Vaccine : 65+ Years (1 of 2 - PCV) Pneumococcal Vaccine: 65+ Years (1 of 2 - PCV) [facility] Start: 1953 Glaucoma screening Diabetic Op hthalmology Exam [facility] Start: 1953 Screening for malign ant neoplasm of colon [facility] Start: 1953 Statin Use: Diabetic Statin Use: Claudine anthony [facility] BLOOD CULTURE 2 BLOOD CULTURE 2 Lab Routine 12/09/2024 4:21 PM EST [facility] metabo lic 1999 panel - Serum or Plasma [facility] Comprehensive metabo lic 1999 panel - Serum or Plasma [facility] Patient referral [facility] Work Phone: [facility] Immunizations Immunization Date Immunization Notes Care Provider Fa cility 12-31-2024 Pneumococcal Conjuga te PCV 20 La Pack SECURITY BUSINESS ANALYST Work Phone: [facility] 12-27-2024 SARS-COV-2 (COVID-19 ) vaccine, mRNA, spike protein, LNP, bivalent, preservative free, 30 mcg/0.3 mL dose, carolyn-sucrose formulation La Pack SECURITY BUSINESS ANALYST Work Phone: [facility] 08-14-2023 Influenza, High-dose Seasonal, Quadrivalent, Preservative Free Daniel Cardoso SECURITY BUSINESS ANALYST Work Phone: [facility] 08-14-2023 influenza virus vaccine, unspecified formulation Daniel Cardoso SECURITY BUSINESS ANALYST Work Phone: [facility] Payers Date Payer Category Payer Medicare [id number] 2024 Self-pay 2023 Medicare HMO [employer] [id number] 2021 Medicare (Managed Care) [facility] Member Subscriber Plan / Payer (Effective 2021-Present) Name: Kennedy Montañoalexander Ramirez Relation to Subscriber: Self Name: Kennedy Montañolene James Payer ID: Not on file Group ID: [id number] Type: Not on file Address: [address] [place] [id number] 2021 Unknown [id number] 2016 Medicare [id number] 1959 Unknown [id number] 1953 Unknown [id number] [id number]. 593 1953 Unknown [id number] [id number]. 593 1953 Unknown [id number] [id number]. 593 1953 Unknown [id number] [id number]. 727 1953 Unknown [id number] [id number]. 727 1953 Unknown [id number] [id number]. 732 1953 Unknown [id number] [id number]. 1259 1953 Unknown [id number] [id number]. 1259 1953 Unknown [id number] [id number]. 1259 1953 Unknown [id number] [id number]. 1259 1953 Unknown [id number] [id number]. 1259 Medicaid Medicaid [id number] Unknown [id number] 531 Social History Date Type Detail Facility Tobacco smoking status [facility] Start: 03-08-2024 End: 06-21-2024 Sex Assigned At Female [facility] Start: 06-21-2024 [facility] History of tobacco use Cigarette Smoker [facility] History of tobacco use Passive smoker [facility] Start: 11-29-2019 End: 06-21-2024 Tobacco use and exposure Smokeless tobacco non-user [facility] Start: 06-21-2024 End: 06-26-2025 Alcoholic beverage intake Lifetime non-drinker (finding) [facility] Start: 03-08-2024 End: 06-21-2024 History of Social function [facility] Start: 10-17-2023 Alcohol Comment Caffeine: 2-3 cups per day [facility] Start: 1955 Sex assigned at Not on file [facility] Start: 12-13-2024 Tobacco smoking stat us [facility] Unknown if ever smoked [facility] Start: 12-14-2024 End: 01-04-2025 Sex Female (finding) [facility] Start: 1955 Sex Assigned At Female F [facility] Start: 11-29-2019 End: 01-04-2025 Tobacco smoking status VTIS Ex-smoker [facility] History of tobacco use Current smoker [facility] Start: 02-19-2021 Alcoholic beverage intake Current non-drinker of alcohol (finding) [facility] Childcare Unknown [facility] Medical Equipment Procedure Code Equipment Code Equipment Origin al Text Equipment Identifier Dates [id number] Start: 11-21-2023 End: 11-20-2024 1 each in the morning. [id number] Start: 11-21-2023 End: 11-20-2024 1 each by In Vit ro route Daily [id number] Start: 01-30-2025 End: 01-30-2026 Goals Date Patient Goal Desired Activity /State Functional Status Date Assessment Result Facility 12-14-2024 Functional status Patient at Baseline [facility] Work Phone: Mental Status Date Assessment Result Facility 12-14-2024 Cognitive function Cognitive Sta tus Patient at Baseline [facility] Work Phone: Clinical Notes 09-11-2024 to 07-31-2025 [...] chronic blood loss acute August 22 8:52am [facility] Work Phone: [phone] 356-122508-13-2025 History of Present illness Narrative* La Pack [...] usually avgs around 140-150s * Laevan Pack, SECURITY BUSINESS ANALYST - 06/26/2025 10:30 AM EDT Images from [...] cholecalciferol (VITAMIN D-3) 50 mcg, Oral, Daily Xcvqxslobbn-Wphexrxlv-Iihygw (Trelegy Ellipta) 200-62.5-25 MCG/ACT aerosol powder 1 Inhalation, Inhalation, Daily Gloaywytmyf-Oehmsqesx-Wazcxx (Trelegy Ellipta) 200-62.5-25 MCG/ACT aerosol powder 1 [...] complication, without long-term current use of insulin ([facility]) Check blood sugars daily, notify if [...] dependence without complication Has not smoked since [employer] Generalized anxiety disorder Will increase dose of [...] dependence without complication Has not smoked since [employer] * La Pack NP - 06/26/2025 5:02 [...] Current meds: albuterol, trelegy documented in [facility] encounterEx[facility] [id number] Instructions* Patient Instructions* La Pack NP - 06/26/2025 10:30 AM EDT For your anxiety: we are going to increase sertraline to 100mg pill once a day. Also adding buspar 5mg twice a day for anxiety Add antibiotic for leg cephalexin twice for 10 days, and water pill for swelling leg lasix 20mg daily Check blood work in 10 days documented in this encounterExcelsior Springs Medical [id number] History of Present illness Narrative* La Pack [...] compliance problems. There is no history of CAD/[place]. Diabetes She presents for her follow-up diabetic [...] being taken. She does not see a frit coater.Eye exam is current. Depression Visit Type: follow-up [...] breakfast, Do not crush, chew, or split. Tqjvobmwvna-Powfbrcht-Soafzz (Trelegy Ellipta) 200-62.5-25 MCG/ACT aerosol powder 1 [...] complication, without long-term current use of insulin ([facility]) Check blood sugars daily, notify if [...] Recurrent major depressive disorder, in full remission ([facility]) Takes sertraline daily Screening mammogram, encounter for Relevant Orders Bilateral screening mammogram COPD (chronic obstructive pulmonary disease) ([facility] [facility]) - Primary Wears oxygen at home Current meds: albuterol, trelegy Primary hypertension ([facility]) Please check blood pressure daily and [...] D 25 hydroxy Acute hypoxic respiratory failure ([facility]) Wears oxygen at home Inhalers: trelegy, albuterol Cigarette nicotine dependence without complication Has not smoked since [employer] Generalized anxiety disorder ([facility]) Takes ativan prn, and sertraline Relevant Orders TSH * La Pack NP - 02/06/2025 6:32 AM EDTAssociated Problem(s): Other hyperlipidemia ([facility]) On statin therapy Check labs yearly [...] without complication [facility] not smoked [facility] * La Pack NP - [...] without complication, without long-term current useof insulin ([facility]) Check blood sugars daily, notify if [...] 02/06/2025 6:25 AM EDTAssociated Problem(s): Primary hypertension ([facility]) Please check blood pressure daily and record DASH diet Limit caffeine Take medication as directed Contact office if chest pain, pressure, dizziness, shortness of breath, swelling legs Recommend slow position changes Current meds: losartan * La Pack NP - 02/06/2025 6:23 AM EDTAssociated Problem(s): COPD (chronic obstructive pulmonary disease) ([facility]) Wears oxygen at home Current meds: albuterol, trelegy documented in this encounterExcelsior Springs Medical [id number] Instructions* Patient Instructions* La Pack NP - 02/06/2025 10:00 AM EDT Get labs completed fasting 8 hours Mammogram we will fax order to [facility], if you dont hear from them in 2 weeks, call [phone] Great job on quitting smoking documented in this encounterExcelsior Springs Medical [id number] History of Present illness Narrative* La Pack NP - 01/23/2025 1:10 PM EDTAssociated Problem(s): Scalp laceration, sequela No s/s infection Neuro exam is normal I do not suspect her fever is related to this Suspect possible resp * La Pack NP - 01/23/2025 1:09 PM EDTAssociated Problem(s): COPD exacerbation (CMS/[facility]) Will add augmentin, no cxr at [...] of Suture / Staple Removal (head) HPI: [facility] ER on 01/14/25 for scalp lac, s/p [...] breakfast, Do not crush, chew, or split. Zibfkalwtda-Sexkyyutb-Scsloy (Trelegy Ellipta) 200-62.5-25 MCG/ACT aerosol powder 1 [...] of the risks of continued smoking: stroke, [place], all forms of cancer, lung disease, and [...] of the risks of continued smoking: stroke, [place], all forms of cancer, lung disease, and . Options for quitting smoking include: cold turkey, hypnosis, acupuncture, nicotine replacement meds(gum, lozenges, and patches), Buproprion, and Varenicline. At this time pt is encouraged to evaluate their goals for wanting to quit smoking, and reach out toprovider when ready to start this process documented in this encounterExcelsior Springs Medical [id number] Instructions* Patient Instructions* La Pack NP - 01/23/2025 11:30 AM EDT May wash hair, Take augmentin atb as directed, fluids, encourage cough and deep breathing If worsening breathing go to ER documented in this encounterNOMS [id number] History of Present illness Narrative* Ian Soares MD - 01/14/2025 9:55 AM ESTAssociated Problem(s): Type 2 diabetes mellitus without complication, without long-term current useof insulin (CMS/HCC) BS controlled and monitor. Stick to ADA diet and limit carbs. * Ian Soares MD - 01/14/2025 9:55 AM ESTAssociated Problem(s): Primary hypertension ([facility]/HCC) BP controlled and monitor PRN. * Ian [...] AM ESTAssociated Problem(s): Acute hypoxic respiratory failure ([facility]/HCC) SpO2 stable and wean oxygen as tolerated. * Ian Soares MD - 01/14/2025 9:30 AM EST Images from the original note were not included. Subjective Patient ID: Julian Montaño is a 69 y.o. female who presents for Follow-up (Hospital f/u), Sore Throat, and Earache (Right ear). Follow up from hospital and SNF. Patient found unresponsive at home and intubated by EMS. Brought to [facility] then transferred to [facility]. Admitted 12/09-12/14 and treated for influenza A [...] limit carbs. COPD (chronic obstructive pulmonary disease) (CMS/[facility]) Breathing stable and continue inhalers. Use albuterol nebulized PRN. Script for new nebulizer machine to patient. Relevant Medications albuterol HFA 90 mcg/act inhaler Primary hypertension (CMS/HCC) BP controlled and monitor PRN. Acute hypoxic respiratory failure (CMS/HCC) SpO2 stable and wean oxygen as tolerated. Influenza A - Primary Recent infection but improved and monitor. documented in this encounterExcelsior Springs Medical [id number] History of Present illness Narrative* Stephen Macias, DO - 01/01/2025 1:19 PM EST Patient Name: Julian Montaño Date of : 1955 Date of Service: 01/01/2025 Facility: [facility] Type of Visit: Skilled Visit Subjective Julian Montaño is a 69 y.o. female seen today at longterm facility for therapy visit. Julian is participating [...] Exam Vitals reviewed. Exam conducted with a buffing and sueding machine operator present (Priyank Ward MS3). Constitutional: General: She [...] / Plan 1. Acute hypoxic respiratory failure ([facility]) 2. Aspiration pneumonia, unspecified aspiration pneumonia type, unspecified laterality, unspecifiedpart of lung ([facility]) 3. Chronic obstructive pulmonary disease, unspecified COPD type ([facility]) 4. Influenza A 5. Type 2 diabetes mellitus without complication, without long-term current use of insulin ([facility]) 6. Other abnormalities of gait and mobility [...] BY: Stephen Macias DO documented in this encounterGalion [facility]02-[facility] History of Present illness Narrative* Stephen Macias DO - 12/28/2024 2:56 PM EST Patient Name: Julian Montaño Date of : 1955 Date of Service: 12/28/2024 Facility: [facility] Type of Visit: Skilled Visit Subjective Julian Montaño is a 69 y.o. female seen today at longterm facility for therapy visit. Julian is in therapy. She is slowly improving. Staff is needing a cprf-vq-eiqu visit to document her oxygen in wheelchair [...] Exam Vitals reviewed. Exam conducted with a buffing and sueding machine operator present (Priyank Ward MS3). Constitutional: General: She [...] BY: Stephen Macias DO documented in this encounterGalion Community Hospital02-11-2025 History of Present illness Narrative* Stephen Macias DO - 12/25/2024 11:59 PM EST Patient Name: Julian Montaño Date of : 1955 Date of Service: 12/25/2024 Facility: [facility] Type of Visit: Skilled Visit Subjective Julian Montaño is a 69 y.o. female seen today at longterm facility for therapy visit. Julian is participating [...] Exam Vitals reviewed. Exam conducted with a buffing and sueding machine operator present (Priyank Ward MS3). Constitutional: General: She [...] BY: Stephen Macias DO documented in this encounterGalion Community Hospital02-04-2025 History of Present illness Narrative* Stephen Macias DO - 12/18/2024 11:59 PM EST Patient Name: Julian Montaño Date of : 1955 Date of Service: 12/18/2024 Facility: [facility] Type of Visit: Admission H&P Subjective Julian Montaño is a 69 y.o. female seen today at longterm facility for admission H&PLakeisha Gardiner presents [facility] hospitalization [facility]. She was diagnosed with acute hypoxic [...] [facility] [...] Past Medical History: Diagnosis Date Acoustic neuroma ([facility]) Anemia Asymmetric SNHL (sensorineural hearing loss) Benign neoplasm of cranial nerve ([facility]) Bilateral cataracts Chronic bronchitis ([facility]) Chronic cough Constipation COPD (chronic obstructive pulmonary disease) ([facility]) Depression Diabetes mellitus ([facility]) history of GERD (gastroesophageal reflux disease) Hemorrhoids History of brain tumor removed in 1997, came back 2018 Hyperlipidemia Hypertension Macular degeneration Osteoarthritis of hip Personal history of tobacco use Positive occult stool blood test Right acoustic neuroma ([facility]) Splenic sequestration Vitamin D deficiency Past [...] Exam Vitals reviewed. Exam conducted with a buffing and sueding machine operator present (Priyank Ward MS3). Constitutional: General: She [...] / Plan 1. Acute hypoxic respiratory failure ([facility]) 2. Chronic obstructive pulmonary disease, unspecified COPD type ([facility]) 3. Influenza A 4. Aspiration pneumonia, unspecified aspiration pneumonia type, unspecified laterality, unspecifiedpart of lung ([facility]) 5. Depression, unspecified depression type 6. Cigarette smoker 7. Type 2 diabetes mellitus without complication, without long-term current use of insulin ([facility]) 8. Anxiety Admit to [facility] [...] BY: Stephen Macias DO documented in this encounterDiley Ridge Medical CenterFreeBorders [id number] Discharge summary Author Daniel Garza [facility] Note Date/Time December 14, 2024 2 :47pm [facility] [address] [place] [address] Discharge Summary Signed Patient: Julian Montaño MR#: [id number] : 1955 Acct:[id number] Age/Sex: 69 / F Adm Date: 5 Loc: Room: [address] [place] [address]: Daniel Garza MD Copies to: MD Daniel Cruz, SECURITY BUSINESS ANALYST-C~ Providers Date of Discharge: 12/14/24 Discharging Provider: [...] as GERD and depression. Patient came to [place] ER after she was intubated by the [...] vomiting and no other concerns as per [place] documentation. Labs at [place] showed CBC with leukocytosis and left shift, [...] signs ofUTI. Her ABG was done at [place] ER showed pH of 7.16 as well as PaCO2 of 71.5. She was intubated by EMS, was given 100 mg of succinylcholine 60 mg of ketamine and then 50 mg of fentanyl and 5 mg of Versed as well as 6.4 mg of Elconin. Also they reached out to cardiology at [place] recommending again heparinization. EKG showed sinus tachycardia [...] started on bronchodilator steroid antibiotics and oseltamivir. Supervisor [employer] was consulted who recommended continuing the same. [...] troponin likely in setting of type II [place]. Follow-up echo showed normal ejection fraction of 65 to 70% with normal wall motion. PMR was consulted for possible inpatient rehab who recommended discharge to longterm facility. Patient was waiting for pre-CERT to longterm facility and is finally approved and is being dischargedthere. Condition Condition at Discharge: Stable Time Spent with Patient Time spent providing/coordinating discharge services (# min): 38 Discharge Plan Discharge Plan Patient Disposition: [facility] Additional Instructions: [facility] to manage care: - Full code [...] with device INHALATION Follow Up: Daniel Cardoso, SECURITY BUSINESS ANALYST-C [Primary Care Provider] - (Follow-up with your Primary Care Provider after discharge from [facility]) Exam Physical Exam Vital Signs: Temp [...] Daniel Garza MD> 12/14/24 1447 [facility] Work Phone: [phone]) 852-112801-31-2025 Progress note Author Daniel Garza [facility] Note Date/Time December 14, 2024 1 :58pm [facility] [address] [place], [place] [id number] Hospitalist Progress Note Signed Patient: Julian Montaño MR#: [id number] : 1955 Acct:[id number] Age/Sex: 69 / F Adm Date: 5 Loc: Room: [address] [place] [address] Type: ADM IN Attending Dr: Daniel Garza MD Copies to: ~ Date of Service: 12/14/2024 Subjective Subjective Narrative: This is a 69 y.o female with past medical history of COPD, dyslipidemia, hypertension, type 2 diabetes as well as GERD and depression. Patient came to [place] ER after she was intubated by the [...] vomiting and no other concerns as per [place] documentation. Labs at [place] showed CBC with leukocytosis and left shift, [...] signs ofUTI. Her ABG was done at [place] ER showed pH of 7.16 as well as PaCO2 of 71.5. She was intubated by EMS, was given 100 mg of succinylcholine 60 mg of ketamine and then 50 mg of fentanyl and 5 mg of Versed as well as 6.4 mg of Elconin. Also they reached out to cardiology at [place] recommending again heparinization. EKG showed sinus tachycardia [...] started on bronchodilator steroid antibiotics and oseltamivir. Supervisor [employer] was consulted who recommended continuing the same. [...] no water. Elevated troponin likely type 2 [place] -Continue on steroids, bronchodilator, oseltamivir and antibiotics -ICU consult-appreciate recommendation -As per her daughter, pt does not drink alcohol or use drugs, She is a very active smoker -HSQ for DVT prophylaxis -Pantoprazole IV 40 mg daily for GI prophylaxis -Full code -consulted cardio-believes elevated troponin likely in setting of type II [place]. Follow-up echo showed normal ejection fraction of 65 to 70% with normal wall motion -PMR was consulted who recommended discharge to longterm facility. Full code Documented By: Daniel Garza MD 12/14/24 1356 Signed By: <Electronically signed by Daniel Garza MD> 12/14/24 3478 [facility] Work Phone: 1([phone]) 166-669101-31-2025 Progress note Author Cecilia Ruiz [facility] Note Date/Time December 14, 2024 1 :18pm [facility] [address] [place] [address] Pulmonology Progress Note Signed Patient: Julian Montaño MR#: [id number] : 1955 Acct:[id number] Age/Sex: 69 / F Adm Date: 5 Loc: Room: [address] [place] [address] Type: ADM IN Attending Dr: Daniel Garza [...] <Electronically signed by Cecilia Ruiz MD> 12/14/248 [facility] Work Phone: 1(679) 681-663401-31-2025 [place] [id number] Discharge Summary Signed Patient: Julian Montaño MR#: [id number] : 1955 Acct:[id number] Age/Sex: 69 / F Adm Date: 5 Loc: Room: [address] [place] [address]: Daniel Garza MD Copies to: MD Daniel Cruz, SECURITY BUSINESS ANALYST-C~ Providers Date of Discharge: 12/14/24 Discharging Provider: [...] as GERD and depression. Patient came to [place] ER after she was intubated by the [...] vomiting and no other concerns as per [place] documentation. Labs at [place] showed CBC with leukocytosis and left shift, [...] no signs ofUTI. Her ABG wasdone at [place] ER showed pH of 7.16 as well as PaCO2 of 71.5. She was intubated by EMS, was given 100 mg of succinylcholine 60 mg of ketamine and then 50 mg of fentanyl and 5 mg of Versed as well as 6.4 mg of Elconin. Also they reached out to cardiology at [place] recommending again heparinization. EKG showed sinus tachycardia [...] started on bronchodilator steroid antibiotics and oseltamivir. Supervisor [employer] was consulted who recommended continuing the same. [...] troponin likely in setting of type II [place]. Follow-up echo showed normal ejection fraction of 65 to 70% with normal wall motion. PMR was consulted for possible inpatient rehab who recommended discharge to longterm facility. Patient was waiting for pre-CERT to longterm facility and is finally approved and isbeing dischargedthere. Condition Condition at Discharge: Stable Time Spent with Patient Time spent providing/coordinating discharge services (# min): 38 Discharge Plan Discharge Plan Patient Disposition: [facility] Additional Instructions: [facility] to manage care: - Full code [...] with device INHALATION Follow Up: Daniel Cardoso, SECURITY BUSINESS ANALYST-C [Primary Care Provider] - (Follow-up with your Primary Care Provider after discharge from [facility]) Exam Physical Exam Vital Signs: Temp [...] MD 12/14/24 144 Signed By: 12/14/24 1447 [facility]01-31-2025 [place] [address] Hospitalist Progress Note Signed Patient: Julian Montaño MR#: [id number] : 1955 Acct:[id number] Age/Sex: 69 / F Adm Date: 5 Loc: Room: 3A2124-1 Type: ADM IN Attending Dr: Daniel Garza MD Copies to: ~ Date of Service: 12/14/2024 Subjective Subjective Narrative: This is a 69 y.o female with past medical history of COPD, dyslipidemia, hypertension, type 2 diabetes as well as GERD and depression. Patient came to [place] ER after she was intubated by the [...] vomiting and no other concerns as per [place] documentation. Labs at [place] showed CBC with leukocytosis and left shift, [...] no signs ofUTI. Her ABG wasdone at [place] ER showed pH of 7.16 as well as PaCO2 of 71.5. She was intubated by EMS, was given 100 mg of succinylcholine 60 mg of ketamine and then 50 mg of fentanyl and 5 mg of Versed as well as 6.4 mg of Elconin. Also they reached out to cardiology at [place] recommending again heparinization. EKG showed sinus tachycardia [...] started on bronchodilator steroid antibiotics and oseltamivir. Supervisor [employer] was consulted who recommended continuing the same. [...] no water. Elevated troponin likely type 2 [place] -Continue on steroids, bronchodilator, oseltamivir and antibiotics -ICU consult-appreciate recommendation -As per her daughter, pt does not drink alcohol or use drugs, She is a very active smoker -HSQ for DVT prophylaxis -Pantoprazole IV 40 mg daily for GI prophylaxis -Full code -consulted cardio-believes elevated troponin likely in setting of type II [place]. Follow-up echo showednormal ejection fraction of 65 to 70% with normal wall motion -PMR was consulted who recommended discharge to longterm facility. Full code Documented By: Daniel Garza MD 12/14/24 1356 Signed By: 12/14/24 1358 [facility]01-31-2025 [place] [address] Pulmonology Progress Note Signed Patient: Julian Montaño MR#: [id number] : 1955 Acct:[id number] Age/Sex: 69 / F Adm Date: 5 Loc: Room: [address] [place] [address] Type: ADM IN Attending Dr: Daniel Garza [...] Cecilia Ruiz MD 12/14/241316 Signed By: 12/14/241317 [facility]01-30-2025 Progress note Author Cecilia Ruiz [facility] Note Date/Time December 13, 2024 1 :53pm [facility] [address] [place] [address] Pulmonology Progress Note Signed Patient: Julian Montaño MR#: [id number] : 1955 Acct:[id number] Age/Sex: 69 / F Adm Date: 5 Loc: Room: [address] [place] [address] Type: ADM IN Attending Dr: Daniel Garza [...] <Electronically signed by Cecilia Ruiz MD> 12/13/24 [facility] Work Phone: 1([phone]) 768-193801-30-2025 Progress note Author Daniel Garza [facility] Note Date/Time December 13, 2024 1 :41pm [facility] [address] [place] [address] Hospitalist Progress Note Signed Patient: Julian Montaño MR#: [id number] : 1955 Acct:[id number] Age/Sex: 69 / F Adm Date: 5 Loc: 4 Room: [address] [place] [address] Type: ADM IN Attending Dr: Daniel Garza MD Copies to: ~ Date of Service: 12/13/2024 Subjective Subjective Narrative: This is a 69 y.o female with past medical history of COPD, dyslipidemia, hypertension, type 2 diabetes as well as GERD and depression. Patient came to [place] ER after she was intubated by the [...] vomiting and no other concerns as per [place] documentation. Labs at [place] showed CBC with leukocytosis and left shift, [...] signs ofUTI. Her ABG was done at [place] ER showed pH of 7.16 as well as PaCO2 of 71.5. She was intubated by EMS, was given 100 mg of succinylcholine 60 mg of ketamine and then 50 mg of fentanyl and 5 mg of Versed as well as 6.4 mg of Elconin. Also they reached out to cardiology at [place] recommending again heparinization. EKG showed sinus tachycardia [...] started on bronchodilator steroid antibiotics and oseltamivir. Supervisor [employer] was consulted who recommended continuing the same. [...] no water. Elevated troponin likely type 2 [place] -Continue on steroids, bronchodilator, oseltamivir and antibiotics -ICU consult-appreciate recommendation -As per her daughter, pt does not drink alcohol or use drugs, She is a very active smoker -HSQ for DVT prophylaxis -Pantoprazole IV 40 mg daily for GI prophylaxis -Full code -consulted cardio-believes elevated troponin likely in setting of type II [place]. Follow-up echo showed normal ejection fraction of 65 to 70% with normal wall motion -PMR was consulted who recommended discharge to longterm facility. Full code Documented By: Daniel Garza MD 12/13/24 1337 Signed By: <Electronically signed by Daniel Garza MD> 12/13/24 1341 [facility] Work Phone: [phone]) 218-693801-30-2025 Consult note Author Dave Bazan [facility] Note Date/Time December 13, 2024 1 :29pm [facility] [address] [place] [address] Physiatry (Rehab) Consult Note Signed Patient: Julian Montaño MR#: [id number] : 1955 Acct:[id number] Age/Sex: 69 / F Adm Date: 5 Loc: Room: [address] [place] [address] Type: ADM IN Attending Dr: Daniel Garza MD Copies to: MD Daniel Cruz NP-C Christian D Siebenaler, MD~ HPI Consult Date: 12/13/24 Requesting Physician: Daniel Garza MD Primary Care Provider: SILVER Francois Consult Narrative HPI: Ms. Montaño is a 69 year old female with PMH COPD, dyslipidemia, hypertension, type2 diabetes as well as GERD and depression. [facility] [place] after being found unresponsive and being intubated [...] noted below or in HPI [facility] Medical History Depressed Acute hypoxic respiratory failure [...] this patient on discharge should be a longterm facility. She does not meet inpatient rehab [...] chart, including current orders, allied health and gift consultant notes, labs/imaging and performed barrow elements of exam and I formulated the plan of care and facilitated the medical decision making. I completed a substantive portion of this encounter, the medical decision making portion of this note in its entirety, including Allied health note review, nursing note review, gift consultant note review, discussion with nursing and case management, and more than 50% of my time was spent on counseling and coordination of care, time spent 45 minutes Documented By: Dave Bazan MD 1254 Signed By: <Electronically signed by Dave Bazan MD> 12/13/24 1324 [facility] Work Phone: 1(573) 322-694001-30-2025 [place] [id number] Pulmonology Progress Note Signed Patient: Julian Montaño MR#: [id number] : 1955 Acct:[id number] Age/Sex: 69 / F Adm Date: 5 Loc: 4 Room: [address] [place] [address] Type: ADM IN Attending Dr: Daniel Garza [...] MD 12/13/24 1351 Signed By: 12/13/24 1353 [facility]01-30-2025 [place] [address] Hospitalist Progress Note Signed Patient: Julian Montaño MR#: [id number] : 1955 Acct:[id number] Age/Sex: 69 / F Adm Date: Loc: Room: [address] [place] [address] Type: ADM IN Attending Dr: Danile Garza MD Copies to: ~ Date of Service: 12/13/2024 Subjective Subjective Narrative: This is a 69 y.o female with past medical history of COPD, dyslipidemia, hypertension, type 2 diabetes as well as GERD and depression. Patient came to [place] ER after she was intubated by the [...] vomiting and no other concerns as per [place] documentation. Labs at [place] showed CBC with leukocytosis and left shift, [...] no signs ofUTI. Her ABG wasdone at [place] ER showed pH of 7.16 as well as PaCO2 of 71.5. She was intubated by EMS, was given 100 mg of succinylcholine 60 mg of ketamine and then 50 mg of fentanyl and 5 mg of Versed as well as 6.4 mg of Elconin. Also they reached out to cardiology at [place] recommending again heparinization. EKG showed sinus tachycardia [...] started on bronchodilator steroid antibiotics and oseltamivir. Supervisor [employer] was consulted who recommended continuing the same. [...] Ml SUBCUT 12/12/25 21:59 Not Given [facility] Protocol Oseltamivir Phosphate 30 mg 12/13/24 [...] no water. Elevated troponin likely type 2 [place] -Continue on steroids, bronchodilator, oseltamivir and antibiotics -ICU consult-appreciate recommendation -As per her daughter, pt does not drink alcohol or use drugs, She is a very active smoker -HSQ for DVT prophylaxis -Pantoprazole IV 40 mg daily for GI prophylaxis -Full code -consulted cardio-believes elevated troponin likely in setting of type II [place]. Follow-up echo showednormal ejection fraction of 65 to 70% with normal wall motion -PMR was consulted who recommended discharge to longterm facility. Full code Documented By: Daniel Garza MD 12/13/24 1337 Signed By: 12/13/24 1341 [facility]01-30-2025 [place] [address] Physiatry (Rehab) Consult Note Signed Patient: Julian Montaño MR#: [id number] : 1955 Acct:[id number] Age/Sex: 69 / F Adm Date: 5 Loc: Room: [address] [place] [address] Type: ADM IN Attending Dr: Daniel Garza MD Copies to: MD Daniel Cruz SECURITY BUSINESS ANALYST-C Dave Bazan MD~ HPI Consult Date: 12/13/24 Requesting Physician: Daniel Garza MD Primary Care Provider: Daniel Cardoso, SECURITY BUSINESS ANALYST-C Consult Narrative HPI: Ms. Montaño is a 69 year old female with PMH COPD, dyslipidemia, hypertension, type2 diabetes as well as GERD and depression. The patient was transferred [facility] from [place] after being found unresponsive and being intubated [...] noted below or in HPI [facility] Medical History Depressed Acute hypoxic respiratory failure [...] 62.5 mcg-vilant 25 mcg inhalat.powder (Trelegy Ellipta) [id number]/27/25 [History] losartan 50 mg tablet mg 12/10/24 [...] this patient on discharge should be a longterm facility. She does not meet inpatient rehab [...] chart, including current orders, allied health and gift consultant notes, labs/imaging and performed barrow elements of exam and I formulated the plan of care and facilitated the medical decision making. I completed a substantive portion of this encounter, the medical decision making portion of this note in its entirety, including Allied health note review, nursing note review, gift consultant note review, discussion with nursing and case management, and more than 50% of my time was spent on counseling and coordination of care, time spent 45 minutes Documented By: Dave Bazan MD 1254 Signed By: 12/13/24 1329 [facility]01-29-2025 Progress note Author Daniel Garza [facility] Note Date/Time December 12, 2024 2 :45pm [facility] [address] [place] [address] Hospitalist Progress Note Signed Patient: Julian Montaño MR#: [id number] : 1955 Acct:[id number] Age/Sex: 69 / F Adm Date: 5 Loc: Room: [address] [place] [address] Type: ADM IN Attending Dr: Daniel Garza MD Copies to: ~ Date of Service: 12/12/2024 Subjective Subjective Narrative: This is a 69 y.o female with past medical history of COPD, dyslipidemia, hypertension, type 2 diabetes as well as GERD and depression. Patient came to [place] ER after she was intubated by the [...] vomiting and no other concerns as per [place] documentation. Labs at [place] showed CBC with leukocytosis and left shift, [...] signs ofUTI. Her ABG was done at [place] ER showed pH of 7.16 as well as PaCO2 of 71.5. She was intubated by EMS, was given 100 mg of succinylcholine 60 mg of ketamine and then 50 mg of fentanyl and 5 mg of Versed as well as 6.4 mg of Elconin. Also they reached out to cardiology at [place] recommending again heparinization. EKG showed sinus tachycardia [...] started on bronchodilator steroid antibiotics and oseltamivir. Supervisor [employer] was consulted who recommended continuing the same. [...] no water. Elevated troponin likely type 2 [place] -Okay to be transferred out of ICU. [...] signed by Daniel Garza MD> 12/12/24 1440 [facility] Work Phone: 1(522) 332-685401-29-2025 [place] [address] Hospitalist Progress Note Signed Patient: Julian Montaño MR#: [id number] : 1955 Acct:[id number] Age/Sex: 69 / F Adm Date: 5 Loc: Room: [address] [place] [address] Type: ADM IN Attending Dr: Daniel Garza MD Copies to: ~ Date of Service: 12/12/2024 Subjective Subjective Narrative: This is a 69 y.o female with past medical history of COPD, dyslipidemia, hypertension, type 2 diabetes as well as GERD and depression. Patient came to [place] ER after she was intubated by the [...] vomiting and no other concerns as per [place] documentation. Labs at [place] showed CBC with leukocytosis and left shift, [...] no signs ofUTI. Her ABG wasdone at [place] ER showed pH of 7.16 as well as PaCO2 of 71.5. She was intubated by EMS, was given 100 mg of succinylcholine 60 mg of ketamine and then 50 mg of fentanyl and 5 mg of Versed as well as 6.4 mg of Elconin. Also they reached out to cardiology at [place] recommending again heparinization. EKG showed sinus tachycardia [...] started on bronchodilator steroid antibiotics and oseltamivir. Supervisor [employer] was consulted who recommended continuing the same. [...] no water. Elevated troponin likely type 2 [place] -Okay to be transferred out of ICU. -Continue on steroids, bronchodilator, oseltamivir and antibiotics -ICU consult-appreciate recommendation -As per her daughter, pt does not drink alcohol or use drugs, She is a very active smoker -HSQ for DVT prophylaxis -Pantoprazole IV 40 mg daily for GI prophylaxis -Full code -consulted cardio Documented By: Daniel Garza MD 12/12/241442 Signed By: 12/12/241444 [facility]01-29-2025 Progress note Author Cecilia Ruiz [facility] Note Date/Time December 12, 2024 1 1:35am [facility] [address] [place] [address] Pulmonology Progress Note Signed Patient: Julian Montaño MR#: [id number] : 1955 Acct:[id number] Age/Sex: 69 / F Adm Date: 5 Loc: Room: [address] [place] [address] Type: ADM IN Attending Dr: Daniel Garza [...] signed by Cecilia Ruiz MD> 12/12/24 1135 [facility] Work Phone: 1(759) 242-500901-29-2025 [place] [address] Pulmonology Progress Note Signed Patient: Julian Montaño MR#: [id number] : 1955 Acct:[id number] Age/Sex: 69 / F Adm Date: 5 Loc: Room: [address] [place] [address] Type: ADM IN Attending Dr: Daniel Garza [...] Ruiz MD 12/12/241132 Signed By: 12/12/24 113 [facility]01-28-2025 Progress note Author Cecilia Ruiz [facility] Note Date/Time December 11, 2024 2 :49pm [facility] [address] [place] [address] Pulmonology Progress Note Signed Patient: Julian Montaño MR#: [id number] : 1955 Acct:[id number] Age/Sex: 69 / F Adm Date: 5 Loc: Room: [address] [place] [address] Type: ADM IN Attending Dr: Daniel Garza [...] Cecilia Ruiz MD> 12/11/24 1449 [facility] Work Phone: 1(390) 957-671801-28-2025 Progress note Author Daniel Garza [facility] Note Date/Time December 11, 2024 2 :43pm [facility] [address] [place] [address] Hospitalist Progress Note Signed Patient: Julian Montaño MR#: [id number] : 1955 Acct:[id number] Age/Sex: 69 / F Adm Date: 5 Loc: Room: [address] [place] [address] Type: ADM IN Attending Dr: Daniel Garza MD Copies to: ~ Date of Service: 12/11/2024 Subjective Subjective Narrative: This is a 69 y.o female with past medical history of COPD, dyslipidemia, hypertension, type 2 diabetes as well as GERD and depression. Patient came to [place] ER after she was intubated by the [...] vomiting and no other concerns as per [place] documentation. Labs at [place] showed CBC with leukocytosis and left shift, [...] signs ofUTI. Her ABG was done at [place] ER showed pH of 7.16 as well as PaCO2 of 71.5. She was intubated by EMS, was given 100 mg of succinylcholine 60 mg of ketamine and then 50 mg of fentanyl and 5 mg of Versed as well as 6.4 mg of Elconin. Also they reached out to cardiology at [place] recommending again heparinization. EKG showed sinus tachycardia [...] started on bronchodilator steroid antibiotics and oseltamivir. Supervisor [employer] was consulted who recommended continuing the same. [...] Ml SUBCUT 12/10/25 11:59 Not Given [facility] Protocol Methylprednisolone Sodium Succinate 40 mg [...] no water. Elevated troponin likely type 2 [place] -Continue to admit in ICU -Continue on [...] signed by Daniel Garza MD> 12/11/24 1443 [facility] Work Phone: 1(664) 865-530701-28-2025 [id number] Pulmonology Progress Note Signed Patient: Julian Montaño MR#: [id number] : 1955 Acct:[id number] Age/Sex: 69 / F Adm Date: 5 Loc: Room: [address] [place] [address] Type: ADM IN Attending Dr: Daniel Garza [...] MD 12/11/24 1446 Signed By: 12/11/24 1449 [facility]01-28-[address] [address] Hospitalist Progress Note Signed Patient: Julian Montaño MR#: [id number] : 1955 Acct:[id number] Age/Sex: 69 / F Adm Date: 5 Loc: Room: [address] [place] [address] Type: ADM IN Attending Dr: Daniel Garza MD Copies to: ~ Date of Service: 12/11/2024 Subjective Subjective Narrative: This is a 69 y.o female with past medical history of COPD, dyslipidemia, hypertension, type 2 diabetes as well as GERD and depression. Patient came to [place] ER after she was intubated by the [...] vomiting and no other concerns as per [place] documentation. Labs at [place] showed CBC with leukocytosis and left shift, [...] no signs ofUTI. Her ABG wasdone at [place] ER showed pH of 7.16 as well as PaCO2 of 71.5. She was intubated by EMS, was given 100 mg of succinylcholine 60 mg of ketamine and then 50 mg of fentanyl and 5 mg of Versed as well as 6.4 mg of Elconin. Also they reached out to cardiology at [place] recommending again heparinization. EKG showed sinus tachycardia [...] started on bronchodilator steroid antibiotics and oseltamivir. Supervisor [employer] was consulted who recommended continuing the same. [...] no water. Elevated troponin likely type 2 [place] -Continue to admit in ICU -Continue on [...] MD 12/11/24 1431 Signed By: 12/11/24 1443 [facility]01-28-2025 Consult note Author Krissy Cortez [facility] Note Date/Time December 10, 2024 1 0:30pm [facility] [address] [place] [address] Cardiology Consult Note Signed Patient: Julian Montaño MR#: [id number] : 1955 Acct:[id number] Age/Sex: 69 / F Adm Date: 5 Loc: Room: [address] [place] [address] Type: ADM IN Attending Dr: Daniel Garza MD Copies to: MD Daniel Cruz SECURITY BUSINESS ANALYST-C Suman Butler DO,RES Krissy Cortez MD~ Cardiology [...] who was transferred to our facility from [place] last night. Per prior documentation, the patient arrived to [place] ER after being intubated by EMS. She was reportedly found unresponsive by her boyfriend (unknown downtime) and was not responding. Additionally, prior documentation reveals that family was noting the patient complaining of shortness of breath for 2 days prior to arrival in the emergency department. [place] labs revealed a leukocytosis, hemoglobin of 10.6, [...] of Systems Unobtainable due to endotracheal tube [facility] History (Updated 12/10/24 @ 15:52 by [...] recheck about 9 hours later -EKG from [place] reviewed and shows sinus tachycardia with right bundle branch block without evidence of ischemic changes -I believe the elevated troponins indicative of a type II [place] and have low suspicion for type I NY, however will obtain echocardiogram for further evaluation [...] agree with the resident's note. Type II NY in the setting of acute hypoxic respiratory failure. ECHO shows normal LVEF 65-70% with normal wall motion. Can consider stress MPI as outpatient once recovered from acute resp issues. Cardiology will see again as needed. = Documented By: Krissy Cortez MD 12/10/24 1020 Signed By: <Electronically signed by Krissy Cortez MD> 12/10/240 <Electronically signed by DO DEVEN Butler> 12/10/24 1554 [facility] Work Phone: 1(780) 407-217901-27-2025 [place] [address] Cardiology Consult Note Signed Patient: Julian Montaño MR#: [id number] : 1955 Acct:[id number] Age/Sex: 69 / F Adm Date: 5 Loc: Room: [address] [place] [address] Type: ADM IN Attending Dr: Daniel Garza [...] who was transferred to our facility from [place] lastnight. Per prior documentation, the patient arrived to [place] ER after being intubated by EMS. She was reportedly found unresponsive by her boyfriend (unknown downtime) and was not responding. Additionally, prior documentation reveals that family was noting the patient complaining of shortness ofbreath for 2 days prior to arrival in the emergency department. [place] labs revealed a leukocytosis, hemoglobin of 10.6, [...] 62.5 mcg-vilant 25 mcg inhalat.powder (Trelegy Ellipta) [id number]/27/25 [History] losartan 50 mg tablet mg 12/10/24 [...] recheck about 9 hours later -EKG from [place] reviewed and shows sinus tachycardia with right bundle branch block without evidence of ischemic changes -I believe the elevated troponins indicative of a type II [place] and have low suspicion for type I [place], however will obtain echocardiogram for further evaluation [...] agree with the resident's note. Type II [place] in the setting of acute hypoxic respiratory failure. ECHO shows normal LVEF 65-70% with normal wall motion. Can consider stress MPI as outpatient once recovered from acute resp issues. Cardiology will see again as needed. = Documented By: Krissy Cortez MD 12/10/24 1020 Signed By: 12/10/24 2230 12/10/24 1554 [facility]01-27-2025 Progress note Author Daniel Garza [facility] Note Date/Time December 10, 2024 8 :26pm [facility] [address] [place] [address] Hospitalist Progress Note Signed Patient: Julian Montaño MR#: [id number] : 1955 Acct:[id number] Age/Sex: 69 / F Adm Date: 5 Loc: Room: [address] [place] [address] Type: ADM IN Attending Dr: Daniel Garza MD Copies to: ~ Date of Service: 12/10/2024 Subjective Subjective Narrative: This is a 69 y.o female that appears from the medication reconciliation [place], patient appears to have past medical history of COPD, dyslipidemia, hypertension, type 2 diabetes as well as GERD and depression. Patient came to [place] ER after she was intubated by the [...] vomiting and no other concerns as per [place] documentation. Labs at [place] showed CBC with leukocytosis and left shift, [...] signs ofUTI. Her ABG was done at [place] ER showed pH of 7.16 as well as PaCO2 of 71.5. She was intubated by EMS, was given 100 mg of succinylcholine 60 mg of ketamine and then 50 mg of fentanyl and 5 mg of Versed as well as 6.4 mg of Elconin. Also they reached out to cardiology at [place] recommending again heparinization. EKG showed sinus tachycardia [...] no water. Elevated troponin likely type 2 [place] -Continue to admit in ICU -Continue on [...] elevated troponin in setting of type II [place]. Plan to obtain echo Documented By: Daniel Garza MD 12/10/242020 Signed By: <Electronically signed by Daniel Garza MD> 12/10/242025 [facility] Work Phone: 1(668) 203-690301-27-[address] [address] Hospitalist Progress Note Signed Patient: Julian Montaño MR#: [id number] : 1955 Acct:[id number] Age/Sex: 69 / F Adm Date: 5 Loc: Room: [address] [place] [address] Type: ADM IN Attending Dr: Daniel Garza MD Copies to: ~ Date of Service: 12/10/2024 Subjective Subjective Narrative: This is a 69 y.o female that appears from the medication reconciliation [place], patient appears to have past medical history of COPD, dyslipidemia, hypertension, type 2 diabetes as well as GERD anddepression. Patient came to [place] ER after she was intubated by the [...] vomiting and no other concerns as per [place] documentation. Labs at [place] showed CBC with leukocytosis and left shift, [...] no signs ofUTI. Her ABG wasdone at [place] ER showed pH of 7.16 as well as PaCO2 of 71.5. She was intubated by EMS, was given 100 mg of succinylcholine 60 mg of ketamine and then 50 mg of fentanyl and 5 mg of Versed as well as 6.4 mg of Elconin. Also they reached out to cardiology at [place] recommending again heparinization. EKG showed sinus tachycardia [...] Ml SUBCUT 12/10/25 11:59 Not Given [facility] Protocol Methylprednisolone Sodium Succinate 40 mg [...] no water. Elevated troponin likely type 2 [place] -Continue to admit in ICU -Continue on [...] elevated troponin in setting of type II [place]. Plan to obtain echo Documented By: Daniel Garza MD 12/10/242020 Signed By: 12/10/242025 [facility]01-27-2025 Consult note Author Cecilia Ruiz [facility] Note Date/Time December 10, 2024 4 :[address] [place] [address] [place] [address] Pulmonology Consult Note Signed Patient: Julian Montaño MR#: [id number] : 1955 Acct:[id number] Age/Sex: 69 / F Adm Date: 5 Loc: Room: [address] [place] [address] Type: ADM IN Attending Dr: Daniel Garza MD Copies to: MD Cecilia Cruz MD Brittany N Fitzpatrick, SECURITY BUSINESS ANALYST-C~ HPI Date/Time of Consultation: Date of Service: 12/10/2024 Time of Service: 16:25 Consulting Provider: Cecilia Ruiz Requesting Provider: Daniel Garza Reason for Consult: Respiratory failure History of Present Illness History of present illness: Ms. Montaño is a 69 year old female with a past medical history of COPD, dyslipidemia, hypertension, type 2 diabetes as well as GERD and depression, presented to [facility] after she was found unresponsive by [...] of Systems Unobtainable due to endotracheal tube [facility] Medical History (Updated 12/10/24 @ 15:52 by [...] nondistended. Extremities: No edema. 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 [...] signed by Cecilia Ruiz MD> 12/10/24 1632 [facility] Work Phone: 1(474) 168-133001-27-[address]25 [place] [address] Pulmonology Consult Note Signed Patient: Julian Montaño MR#: [id number] : 1955 Acct:[id number] Age/Sex: 69 / F Adm Date: 5 Loc: Room: [address] [place] [address] Type: ADM IN Attending Dr: Daniel Garza [...] well as GERD and depression, presented to [facility] after she was found unresponsive by [...] Unobtainable due to endotracheal tube [facility] Medical History (Updated 12/10/24 @ 15:52 by [...] nondistended. Extremities: No edema. 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 [...] MD 12/10/24 1625 Signed By: 12/10/24 1632 [facility]01-26-2025 Evaluation note* Diagnosis Onset Date Resolution [...] 2024 9:05pm Tobacco abuse acute November 9:05pm [facility] Work Phone: 1(929) 446-620901-26-2025 Evaluation note* Diagnosis Onset Date Resolution Status [...] 9:05pm Hypotension resolved December 09, 2024 9:05pm [facility] Work Phone: 1(161) 927-940411-07-2024 History of Present illness Narrative* Daniel Cardoso NP - 09/20/2024 10:53 AM ESTAssociated Problem(s): Type 2 diabetes mellitus without complication, without long-term current useof insulin ([facility]) Currently taking Metformin 500mg Most recent [...] MODERATE RISK >11.0 HIGH RISK Resulting Agency [facility] DMII: Most recent labs: hemoglobin A1C [...] without long-term current use of insulin ([facility]) Currently taking Metformin 500mg Most recent labs: [...] Asthma with COPD (chronic obstructive pulmonary disease) ([facility]) Currently taking Trelegy Daily and Albuterol PRN No exacerbations recently Reports using rescue inhaler 3 times per month. Continue current regimen Primary hypertension ([facility]) - Primary Currently taking Losartan-hydrochlorothiazide 50/12.5mg Checks [...] (Augmentin) 875-125 MG tablet documented in this encounterEx[facility] CenterOcbubtqrlw05-08-1579 Instructions* Patient Instructions* Daniel Cardoso NP - [...] if you need anything! documented in this [facility]10-29-2024 Telephone encounter Note* Telephone Encounter - Sabina Black MA - 09/11/2024 3:30 PM EDT Pt requesting a refill on her mobic, ANETTE:06/21/2024 NOV:09/20/2024 [facility] CenterCiovilvdkl07-[facility]-3731 Miscellaneous Notes* Telephone Encounter - Sabina Black MA - 09/11/2024 3:30 PM EDT Pt requesting a refill on her mobic, ANETTE:06/21/2024 NOV:09/20/2024 documented [facility] this [facility] No data available for this section [facility] Diagnosis Iron deficiency anemia due to chronic blood loss- Primary Iron deficiency anemia secondary to blood loss (chronic) Current smoker Other hyperlipidemia ([facility]) Moderate persistent asthma without complication ([facility]) Type 2 diabetes mellitus without complication, without long-term current use of insulin ([facility]) Screening mammogram, encounter for Recurrent major depressive disorder, in full remission ([facility]) Asthma with COPD (chronic obstructive pulmonary disease) ([facility])- Primary Iron 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) Type 2 diabetes mellitus without complication, without long-term current use of insulin ([facility]) Primary hypertension (CMS/HCC) Unspecified essential hypertension Asthma with COPD (chronic obstructive pulmonary disease) ([facility])- Primary Primary hypertension ([facility]/HCC) Unspecified essential hypertension Type 2 [...] pulmonary disease) (CMS/HCC) documented in this encounter [facility] HealthcareEvaluation note* Diagnosis Iron deficiency anemia due to chronic blood loss- Primary Iron deficiency anemia secondary to blood loss (chronic) Current smoker Other hyperlipidemia (CMS/HCC) Moderate persistent asthma without complication (CMS/HCC) Type 2 diabetes mellitus without complication, without long-term current use of insulin ([facility]/HCC) Screening mammogram, encounter for Recurrent [...] without complications (CMS/HCC) documented in this encounter [facility] HealthcareEvaluation note* Diagnosis Iron deficiency anemia due to chronic blood loss- Primary Iron deficiency anemia secondary to blood loss (chronic) Current smoker Other hyperlipidemia (CMS/HCC) Moderate persistent asthma without complication (CMS/HCC) Type 2 diabetes mellitus without complication, without long-term current use of insulin ([facility]/HCC) Screening mammogram, encounter for Recurrent major depressive disorder, in full remission ([facility]/HCC) Asthma with COPD (chronic obstructive [...] Hyperlipidemia, unspecified (CMS/HCC) documented in this encounter [facility] HealthcareEvaluation note* Diagnosis Iron deficiency anemia due to chronic blood loss- Primary Iron deficiency anemia secondary to blood loss (chronic) Current smoker Other hyperlipidemia (CMS/HCC) Moderate persistent asthma without complication ([facility]/HCC) Type 2 diabetes mellitus without complication, without long-term current use of insulin ([facility]/HCC) Screening mammogram, encounter for Recurrent major depressive disorder, in full remission ([facility]) Asthma with COPD (chronic obstructive pulmonary disease) ([facility]/HCC)- Primary Iron 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) Type 2 diabetes mellitus without complication, without long-term current use of insulin ([facility]/HCC) Primary hypertension (CMS/HCC) Unspecified essential hypertension Asthma [...] complication, without long-term current use of insulin ([facility]/HCC) Vitamin D deficiency Dermoid cyst of right ear Tobacco dependency Tobacco use disorder Other bursitis of elbow, left elbow documented in this encounter [facility] HealthcareEvaluation note* Diagnosis Iron deficiency anemia due to chronic blood loss- Primary Iron deficiency anemia secondary to blood loss (chronic) Current smoker Other hyperlipidemia ([facility]/HCC) Moderate persistent asthma without complication ([facility]) Type 2 diabetes mellitus without complication, without long-term current use of insulin ([facility]) Screening mammogram, encounter for Recurrent major depressive disorder, in full remission ([facility]) Asthma with COPD (chronic obstructive pulmonary disease) ([facility])- Primary Iron 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) Type 2 diabetes mellitus without complication, without long-term current use of insulin ([facility]) Primary hypertension ([facility]) Unspecified essential hypertension Asthma with COPD (chronic obstructive pulmonary disease) ([facility])- Primary Primary hypertension ([facility]) Unspecified essential hypertension Type 2 diabetes mellitus without complication, without long-term current use of insulin ([facility]) Primary hypertension ([facility])- Primary Unspecified essential hypertension Asthma with COPD (chronic obstructive pulmonary disease) ([facility]) Iron 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) Other hyperlipidemia ([facility]) Type 2 diabetes mellitus without complication, without long-term current use of insulin ([facility]) Vitamin D deficiency Dermoid cyst of right ear Tobacco dependency Tobacco use disorder Primary hypertension ([facility])- Primary Unspecified essential hypertension Type 2 diabetes mellitus without complication, without long-term current use of insulin ([facility]) Other hyperlipidemia ([facility]) Asthma with COPD (chronic obstructive pulmonary disease) ([facility]) Non-recurrent acute serous otitis media of left ear documented in this encounter [facility] HealthcareEvaluation note* Diagnosis Other bursitis of elbow, left elbow documented in this encounter [facility] HealthcareEvaluation note* Diagnosis Iron deficiency anemia due to chronic blood loss- Primary Iron deficiency anemia secondary to blood loss (chronic) Current smoker Other hyperlipidemia ([facility]/HCC) Moderate persistent asthma without complication ([facility]) Type 2 diabetes mellitus without complication, without long-term current use of insulin ([facility]) Screening mammogram, encounter for Recurrent major depressive disorder, in full remission ([facility]) Asthma with COPD (chronic obstructive pulmonary disease) ([facility])- Primary Iron deficiency anemia due to chronic blood loss Iron deficiency anemia secondary to blood loss (chronic) Type 2 diabetes mellitus without complication, without long-term current use of insulin ([facility]/HCC) Primary hypertension ([facility]/HCC) Unspecified essential hypertension Asthma with COPD (chronic obstructive pulmonary disease) ([facility])- Primary Primary hypertension ([facility]/HCC) Unspecified essential hypertension Type 2 diabetes mellitus without complication, without long-term current use of insulin ([facility]/HCC) Primary hypertension ([facility]/HCC)- Primary Unspecified essential hypertension Asthma with COPD (chronic obstructive pulmonary disease) ([facility]) Iron deficiency anemia due to chronic blood loss Iron deficiency anemia secondary to blood loss (chronic) Other hyperlipidemia ([facility]) Type 2 diabetes mellitus without complication, without long-term current use of insulin ([facility]) Vitamin D deficiency Dermoid cyst of right ear Tobacco dependency Tobacco use disorder Primary hypertension ([facility])- Primary Unspecified essential hypertension Type 2 diabetes mellitus without complication, without long-term current use of insulin ([facility]) Other hyperlipidemia ([facility]) Asthma with COPD (chronic obstructive pulmonary disease) (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) Moderate persistent asthma without complication ([facility]) Type 2 diabetes mellitus without complication, without long-term current use of insulin ([facility]) Screening mammogram, encounter for Recurrent major depressive disorder, in full remission ([facility]) Asthma with COPD (chronic obstructive pulmonary disease) ([facility])- Primary Iron deficiency anemia due to chronic blood loss Iron deficiency anemia secondary to blood loss (chronic) Type 2 diabetes mellitus without complication, without long-term current use of insulin ([facility]/HCC) Primary hypertension ([facility]) Unspecified essential hypertension Asthma with COPD (chronic obstructive pulmonary disease) ([facility])- Primary Primary hypertension ([facility]) Unspecified essential hypertension Type 2 diabetes mellitus without complication, without long-term current use of insulin ([facility]/HCC) Primary hypertension ([facility]/HCC)- Primary Unspecified essential hypertension Asthma with COPD (chronic obstructive pulmonary disease) ([facility]) Iron deficiency anemia due to chronic blood loss Iron deficiency anemia secondary to blood loss (chronic) Other hyperlipidemia ([facility]) Type 2 diabetes mellitus without complication, without long-term current use of insulin ([facility]/HCC) Vitamin D deficiency Dermoid cyst [...] Diagnosis Type 2 diabetes mellitus without complications ([facility]/HCC) Hyperlipidemia, unspecified (CMS/HCC) documented in this encounter [facility] HealthcareEvaluation note* Diagnosis Hyperlipidemia, unspecified (CMS/HCC) Other bursitis of elbow, left elbow Depression, unspecified ([facility]/HCC) Type 2 diabetes mellitus without complications ([facility]/HCC) documented in this encounter [facility] HealthcareEvaluation note* Diagnosis Iron deficiency anemia due to chronic blood loss- Primary Iron deficiency anemia secondary to blood loss (chronic) Current smoker Other hyperlipidemia (CMS/HCC) Moderate persistent asthma without complication ([facility]/HCC) Type 2 diabetes mellitus without complication, without long-term current use of insulin ([facility]) Screening mammogram, encounter for Recurrent major depressive disorder, in full remission ([facility]) Asthma with COPD (chronic obstructive pulmonary disease) ([facility]/HCC)- Primary Iron deficiency anemia due [...] Asthma with COPD (chronic obstructive pulmonary disease) ([facility]/HCC) Non-recurrent acute serous otitis media of left ear Iron deficiency anemia due to chronic blood loss Iron deficiency anemia secondary to blood loss (chronic) documented in this encounter [facility] HealthcareEvaluation note* Diagnosis Iron deficiency anemia due to chronic blood loss- Primary Iron deficiency anemia secondary to blood loss (chronic) Current smoker Other hyperlipidemia (CMS/HCC) Moderate persistent asthma without complication ([facility]/HCC) Type 2 diabetes mellitus without complication, without long-term current use of insulin ([facility]) Screening mammogram, encounter for Recurrent major depressive disorder, in full remission ([facility]) Asthma with COPD (chronic obstructive pulmonary disease) ([facility])- Primary Iron deficiency anemia due to [...] Asthma with COPD (chronic obstructive pulmonary disease) ([facility]) Iron deficiency anemia due to chronic blood loss Iron deficiency anemia secondary to blood loss (chronic) Other hyperlipidemia (CMS/HCC) Type 2 diabetes mellitus without complication, without long-term current use of insulin ([facility]/HCC) Vitamin D deficiency Dermoid cyst of right ear Tobacco dependency Tobacco use disorder Primary hypertension (CMS/HCC)- Primary Unspecified essential hypertension Type 2 diabetes mellitus without complication, without long-term current use of insulin (CMS/HCC) Other hyperlipidemia (CMS/HCC) Asthma with COPD (chronic obstructive pulmonary disease) ([facility]/HCC) Non-recurrent acute serous otitis media of left ear Asthma with COPD (chronic obstructive pulmonary disease) ([facility]/HCC) documented in this encounter [facility] HealthcareEvaluation note* Diagnosis Iron deficiency anemia due to chronic blood loss- Primary Iron deficiency anemia secondary to blood loss (chronic) Current smoker Other hyperlipidemia ([facility]) Moderate persistent asthma without complication ([facility]) Type 2 diabetes mellitus without complication, without long-term current use of insulin ([facility]) Screening mammogram, encounter for Recurrent major depressive disorder, in full remission ([facility]) Asthma with COPD (chronic obstructive pulmonary disease) ([facility])- Primary Iron deficiency anemia due to chronic blood loss Iron deficiency anemia secondary to blood loss (chronic) Type 2 diabetes mellitus without complication, without long-term current use of insulin ([facility]) Primary hypertension ([facility]) Unspecified essential hypertension Asthma with COPD (chronic obstructive pulmonary disease) ([facility] [place])- Primary Primary hypertension ([facility] [place]) Unspecified essential hypertension Type 2 diabetes mellitus without complication, without long-term current use of insulin ([facility]) Primary hypertension ([facility])- Primary Unspecified essential hypertension Asthma with COPD (chronic obstructive pulmonary disease) ([facility]) Iron deficiency anemia due to chronic blood loss Iron deficiency anemia secondary to blood loss (chronic) Other hyperlipidemia ([facility]) Type 2 diabetes mellitus without complication, without long-term current use of insulin ([facility]) Vitamin D deficiency Dermoid cyst of right ear Tobacco dependency Tobacco use disorder Primary hypertension ([facility])- Primary Unspecified essential hypertension Type 2 diabetes mellitus without complication, without long-term current use of insulin ([facility]) Other hyperlipidemia ([facility]) Asthma with COPD (chronic obstructive pulmonary disease) ([facility]) Non-recurrent acute serous otitis media of left ear Iron deficiency anemia due to chronic blood loss Iron deficiency anemia secondary to blood loss (chronic) documented in this encounter [facility] HealthcareEvaluation note* Diagnosis Acute hypoxic respiratory failure ([facility] Primary Chronic obstructive pulmonary disease, unspecified COPD type ([facility] [place]) Influenza A Influenza with other respiratory manifestations Aspiration pneumonia, unspecified aspiration pneumonia type, unspecified laterality, unspecified part of lung ([facility]) Depression, unspecified depression type Cigarette smoker Tobacco use disorder Type 2 diabetes mellitus without complication, without long-term current use of insulin ([facility]) Anxiety Anxiety state, unspecified documented in this encounter [facility] SystemEvaluation note* Diagnosis Acute hypoxic respiratory failure ([facility])- Primary Chronic obstructive pulmonary disease, unspecified COPD type ([facility]) Influenza A Influenza with other respiratory manifestations Other abnormalities of gait and mobility documented in this encounter [facility] SystemEvaluation note* Diagnosis Acute hypoxic respiratory failure ([facility] Primary Aspiration pneumonia, unspecified aspiration pneumonia type, unspecified laterality, unspecified part of lung ([facility]) Chronic obstructive pulmonary disease, unspecified COPD type ([facility]) Influenza A Influenza with other respiratory manifestations Type 2 diabetes mellitus without complication, without long-term current use of insulin ([facility]) Other abnormalities of gait and mobility Anxiety Anxiety state, unspecified [facility] Diagnosis Chronic obstructive pulmonary disease, unspecified COPD type ([facility] [place] Primary Influenza A Influenza with other respiratory manifestations Other abnormalities of gait and mobility Anxiety Anxiety state, unspecified Cigarette smoker Tobacco use disorder [facility]* Diagnosis Iron deficiency anemia due to chronic blood loss- Primary Iron deficiency anemia secondary to blood loss (chronic) Current smoker Other hyperlipidemia ([facility] [place]) Moderate persistent asthma without complication ([facility] [place]) Type 2 diabetes mellitus without complication, without long-term current use of insulin ([facility] [place]) Screening mammogram, encounter for Recurrent major depressive disorder, in full remission ([facility] [place]) Asthma with COPD (chronic obstructive pulmonary disease) ([facility] [place])- Primary Iron deficiency anemia due to chronic blood loss Iron deficiency anemia secondary to blood loss (chronic) Type 2 diabetes mellitus without complication, without long-term current use of insulin ([facility] [place]) Primary hypertension ([facility] [place]) Unspecified essential hypertension Asthma with COPD (chronic obstructive pulmonary disease) ([facility] [place])- Primary Primary hypertension ([facility] [place]) Unspecified essential hypertension Type 2 diabetes mellitus without complication, without long-term current use of insulin ([facility] [place]) Primary hypertension ([facility] [place])- Primary Unspecified essential hypertension Asthma with COPD (chronic obstructive pulmonary disease) ([facility] [place]) Iron deficiency anemia due to chronic blood loss Iron deficiency anemia secondary to blood loss (chronic) Other hyperlipidemia ([facility]) Type 2 diabetes mellitus without complication, without long-term current use of insulin ([facility] [place]) Vitamin D deficiency Dermoid cyst of right ear Tobacco dependency Tobacco use disorder Primary hypertension ([facility] [place])- Primary Unspecified essential hypertension Type 2 diabetes mellitus without complication, without long-term current use of insulin ([facility] [place]) Other hyperlipidemia (CMS/HCC) Asthma with COPD (chronic [...] Type 2 diabetes mellitus with diabetic polyneuropathy ([facility]) documented in this encounter [facility] HealthcareEvaluation note* Diagnosis Iron deficiency anemia due to chronic blood loss- Primary Iron deficiency anemia secondary to blood loss (chronic) Current smoker Other hyperlipidemia (CMS/HCC) Moderate persistent asthma without complication ([facility]/HCC) Type 2 diabetes mellitus without complication, without long-term current use of insulin ([facility]) Screening mammogram, encounter for Recurrent major depressive disorder, in full remission ([facility]) Asthma with COPD (chronic obstructive pulmonary disease) ([facility])- Primary Iron deficiency anemia due to chronic blood loss Iron deficiency anemia secondary to blood loss (chronic) Type 2 diabetes mellitus without complication, without long-term current use of insulin (CMS/HCC) Primary hypertension (CMS/HCC) Unspecified essential hypertension Asthma with COPD (chronic obstructive pulmonary disease) (CMS/HCC)- Primary Primary hypertension ([facility]/HCC) Unspecified essential hypertension Type 2 diabetes mellitus without complication, without long-term current use of insulin (CMS/HCC) Primary hypertension (CMS/HCC)- Primary Unspecified essential hypertension Asthma with COPD (chronic obstructive pulmonary disease) (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 (CMS/HCC) Scalp laceration, sequela- Primary Cigarette nicotine dependence without complication COPD exacerbation (CMS/HCC) Obstructive chronic bronchitis with exacerbation documented in this encounter [facility] HealthcareEvaluation note* Diagnosis Iron deficiency anemia due to chronic blood loss- Primary Iron deficiency anemia secondary to blood loss (chronic) Current smoker Other hyperlipidemia (CMS/HCC) Moderate persistent asthma without complication ([facility]/HCC) Type 2 diabetes mellitus without complication, without long-term current use of insulin ([facility]) Screening mammogram, encounter for Recurrent major depressive disorder, in full remission ([facility]) Asthma with COPD (chronic obstructive pulmonary disease) ([facility])- Primary Iron deficiency anemia due to chronic blood loss Iron deficiency anemia secondary to blood loss (chronic) Type 2 diabetes mellitus without complication, without long-term current use of insulin ([facility]) Primary hypertension ([facility]/HCC) Unspecified essential hypertension Asthma with COPD (chronic obstructive pulmonary disease) ([facility])- Primary Primary hypertension ([facility]/HCC) Unspecified essential hypertension Type 2 diabetes mellitus without complication, without long-term current use of insulin ([facility]/HCC) Primary hypertension ([facility]/HCC)- Primary Unspecified essential hypertension Asthma with COPD (chronic obstructive pulmonary disease) ([facility]) Iron deficiency anemia due to chronic blood loss Iron deficiency anemia secondary to blood loss (chronic) Other hyperlipidemia ([facility]) Type 2 diabetes mellitus without complication, without long-term current use of insulin ([facility]) Vitamin D deficiency Dermoid cyst of right ear Tobacco dependency Tobacco use disorder Primary hypertension ([facility]/HCC)- Primary Unspecified essential hypertension Type 2 diabetes mellitus without complication, without long-term current use of insulin ([facility]/HCC) Other hyperlipidemia ([facility]/HCC) Asthma with COPD (chronic obstructive pulmonary disease) ([facility]) Non-recurrent acute serous otitis media of left ear Influenza A- Primary Influenza with other respiratory manifestations Chronic obstructive pulmonary disease, unspecified COPD type ([facility]) Acute hypoxic respiratory failure (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) Obstructive chronic bronchitis with exacerbation Type 2 diabetes mellitus without complication, without long-term current use of insulin ([facility])- Primary Chronic obstructive pulmonary disease, unspecified COPD type ([facility]/HCC) Primary hypertension ([facility]) Unspecified essential hypertension Vitamin D deficiency Iron deficiency anemia due to chronic blood loss Iron deficiency anemia secondary to blood loss (chronic) Cigarette nicotine dependence without complication Recurrent major depressive disorder, in full remission ([facility]) Generalized anxiety disorder ([facility]) Generalized anxiety disorder Screening mammogram, encounter for Other hyperlipidemia ([facility]) Acute hypoxic respiratory failure ([facility]) documented in this encounter [facility] HealthcareEvaluation note* Diagnosis Iron deficiency anemia due to chronic blood loss- Primary Iron deficiency anemia secondary to blood loss (chronic) Current smoker Other hyperlipidemia Moderate persistent asthma without complication ([facility]) Type 2 diabetes mellitus without complication, without long-term current use of insulin Screening mammogram, encounter for Recurrent major depressive disorder, in full remission ([facility]) Asthma with COPD (chronic obstructive pulmonary disease) ([facility])- Primary Iron deficiency anemia due to chronic blood loss Iron deficiency anemia secondary to blood loss (chronic) Type 2 diabetes mellitus without complication, without long-term current use of insulin Primary hypertension ([facility]) Unspecified essential hypertension Asthma with COPD (chronic obstructive pulmonary disease) ([facility])- Primary Primary hypertension ([facility]) Unspecified essential hypertension Type 2 diabetes mellitus without complication, without long-term current use of insulin Primary hypertension ([facility])- Primary Unspecified essential hypertension Asthma with COPD (chronic obstructive pulmonary disease) ([facility]) Iron deficiency anemia due to chronic blood loss Iron deficiency anemia secondary to blood loss (chronic) Other hyperlipidemia Type 2 diabetes mellitus without complication, without long-term current use of insulin Vitamin D deficiency Dermoid cyst of right ear Tobacco dependency Tobacco use disorder Primary hypertension ([facility]/HCC)- Primary Unspecified essential hypertension Type 2 diabetes mellitus without complication, without long-term current use of insulin Other hyperlipidemia Asthma with COPD (chronic obstructive pulmonary disease) ([facility]) Non-recurrent acute serous otitis media of left ear Influenza A- Primary Influenza with other respiratory manifestations Chronic obstructive pulmonary disease, unspecified COPD type ([facility]/HCC) Acute hypoxic respiratory failure ([facility]/HCC) Type 2 diabetes mellitus without complication, without long-term current use of insulin Primary hypertension (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) Scalp laceration, sequela- Primary Cigarette nicotine dependence without complication COPD exacerbation ([facility]) Obstructive chronic bronchitis with exacerbation Type 2 diabetes mellitus without complication, without long-term current use of insulin- Primary Chronic obstructive pulmonary disease, unspecified COPD type ([facility]/HCC) Primary hypertension ([facility]) Unspecified essential hypertension Vitamin D deficiency Iron deficiency anemia due to chronic blood loss Iron deficiency anemia secondary to blood loss (chronic) Cigarette nicotine dependence without complication Recurrent major depressive disorder, in full remission ([facility]) Generalized anxiety disorder ([facility]) Generalized anxiety disorder Screening mammogram, encounter for Other hyperlipidemia Acute hypoxic respiratory failure ([facility]) Elevated TSH Other abnormal blood chemistry documented in this encounter [facility] HealthcareEvaluation note* Diagnosis Iron deficiency anemia due to chronic blood loss- Primary Iron deficiency anemia secondary to blood loss (chronic) Current smoker Other hyperlipidemia Moderate persistent asthma without complication ([facility]) Type 2 diabetes mellitus without complication, without long-term current use of insulin Screening mammogram, encounter for Recurrent major depressive disorder, in full remission ([facility]) Asthma with COPD (chronic obstructive pulmonary disease) ([facility])- Primary Iron deficiency anemia due to chronic blood loss Iron deficiency anemia secondary to blood loss (chronic) Type 2 diabetes mellitus without complication, without long-term current use of insulin Primary hypertension ([facility]) Unspecified essential hypertension Asthma with COPD (chronic obstructive pulmonary disease) ([facility])- Primary Primary hypertension ([facility]) Unspecified essential hypertension Type 2 diabetes mellitus without complication, without long-term current use of insulin Primary hypertension ([facility])- Primary Unspecified essential hypertension Asthma with COPD (chronic obstructive pulmonary disease) ([facility]) Iron deficiency anemia due to chronic blood loss Iron deficiency anemia secondary to blood loss (chronic) Other hyperlipidemia Type 2 diabetes mellitus without complication, without long-term current use of insulin Vitamin D deficiency Dermoid cyst of right ear Tobacco dependency Tobacco use disorder Primary hypertension ([facility])- Primary Unspecified essential hypertension Type 2 diabetes mellitus without complication, without long-term current use of insulin Other hyperlipidemia Asthma with COPD (chronic obstructive pulmonary disease) ([facility]/HCC) Non-recurrent acute serous otitis media of left ear Influenza A- Primary Influenza with other respiratory manifestations Chronic obstructive pulmonary disease, unspecified COPD type ([facility]/HCC) Acute hypoxic respiratory failure ([facility]) Type 2 diabetes mellitus without complication, without long-term current use of insulin Primary hypertension ([facility]) Unspecified essential hypertension Benign neoplasm of cranial nerves (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) Scalp laceration, sequela- Primary Cigarette nicotine dependence without complication COPD exacerbation ([facility]) Obstructive chronic bronchitis with exacerbation Type 2 diabetes mellitus without complication, without long-term current use of insulin- Primary Chronic obstructive pulmonary disease, unspecified COPD type ([facility]) Primary hypertension ([facility]) Unspecified essential hypertension Vitamin D deficiency Iron deficiency anemia due to chronic blood loss Iron deficiency anemia secondary to blood loss (chronic) Cigarette nicotine dependence without complication Recurrent major depressive disorder, in full remission ([facility]) Generalized anxiety disorder ([facility]) Generalized anxiety disorder Screening mammogram, encounter for Other hyperlipidemia Acute hypoxic respiratory failure ([facility]) Iron deficiency anemia due to chronic blood loss Iron deficiency anemia secondary to blood loss (chronic) documented in this encounter [facility] HealthcareEvaluation note* Diagnosis Iron deficiency anemia due to chronic blood loss- Primary Iron deficiency anemia secondary to blood loss (chronic) Current smoker Other hyperlipidemia Moderate persistent asthma without complication ([facility]) Type 2 diabetes mellitus without complication, without long-term current use of insulin Screening mammogram, encounter for Recurrent major depressive disorder, in full remission ([facility]) Asthma with COPD (chronic obstructive pulmonary disease) ([facility])- Primary Iron deficiency anemia due to chronic blood loss Iron deficiency anemia secondary to blood loss (chronic) Type 2 diabetes mellitus without complication, without long-term current use of insulin Primary hypertension ([facility]) Unspecified essential hypertension Asthma with COPD (chronic obstructive pulmonary disease) ([facility])- Primary Primary hypertension ([facility]) Unspecified essential hypertension Type 2 diabetes mellitus without complication, without long-term current use of insulin Primary hypertension ([facility])- Primary Unspecified essential hypertension Asthma with COPD (chronic obstructive pulmonary disease) ([facility]) Iron deficiency anemia due to chronic blood loss Iron deficiency anemia secondary to blood loss (chronic) Other hyperlipidemia Type 2 diabetes mellitus without complication, without long-term current use of insulin Vitamin D deficiency Dermoid cyst of right ear Tobacco dependency Tobacco use disorder Primary hypertension ([facility]/HCC)- Primary Unspecified essential hypertension Type 2 diabetes mellitus without complication, without long-term current use of insulin Other hyperlipidemia Asthma with COPD (chronic obstructive pulmonary disease) ([facility]/HCC) Non-recurrent acute serous otitis media of left ear Influenza A- Primary Influenza with other respiratory manifestations Chronic obstructive pulmonary disease, unspecified COPD type ([facility]) Acute hypoxic respiratory failure ([facility]) Type 2 diabetes mellitus without complication, without long-term current use of insulin Primary hypertension ([facility]) Unspecified essential hypertension Benign neoplasm of cranial nerves (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) Scalp laceration, sequela- Primary Cigarette nicotine dependence without complication COPD exacerbation ([facility]) Obstructive chronic bronchitis with exacerbation Type 2 diabetes mellitus without complication, without long-term current use of insulin- Primary Chronic obstructive pulmonary disease, unspecified COPD type ([facility]) Primary hypertension ([facility]) Unspecified essential hypertension Vitamin D deficiency Iron deficiency anemia due to chronic blood loss Iron deficiency anemia secondary to blood loss (chronic) Cigarette nicotine dependence without complication Recurrent major depressive disorder, in full remission ([facility]) Generalized anxiety disorder ([facility]) Generalized anxiety disorder Screening mammogram, encounter for Other hyperlipidemia Acute hypoxic respiratory failure ([facility]) Asthma with COPD (chronic obstructive pulmonary disease) ([facility]) Chronic obstructive pulmonary disease, unspecified COPD type ([facility]) documented in this encounter [facility] HealthcareEvaluation note* Diagnosis Iron deficiency anemia due to chronic blood loss- Primary Iron deficiency anemia secondary to blood loss (chronic) Current smoker Other hyperlipidemia Moderate persistent asthma without complication ([facility]) Type 2 diabetes mellitus without complication, without long-term current use of insulin Screening mammogram, encounter for Recurrent major depressive disorder, in full remission ([facility]) Asthma with COPD (chronic obstructive pulmonary disease) ([facility])- Primary Iron deficiency anemia due to chronic blood loss Iron deficiency anemia secondary to blood loss (chronic) Type 2 diabetes mellitus without complication, without long-term current use of insulin Primary hypertension ([facility]) Unspecified essential hypertension Asthma with COPD (chronic obstructive pulmonary disease) ([facility])- Primary Primary hypertension ([facility]) Unspecified essential hypertension Type 2 diabetes mellitus without complication, without long-term current use of insulin Primary hypertension ([facility]/HCC)- Primary Unspecified essential hypertension Asthma with COPD (chronic obstructive pulmonary disease) ([facility]/HCC) Iron deficiency anemia due to chronic blood loss Iron deficiency anemia secondary to blood loss (chronic) Other hyperlipidemia Type 2 diabetes mellitus without complication, without long-term current use of insulin Vitamin D deficiency Dermoid cyst of right ear Tobacco dependency Tobacco use disorder Primary hypertension ([facility]/HCC)- Primary Unspecified essential hypertension Type 2 diabetes mellitus without complication, without long-term current use of insulin Other hyperlipidemia Asthma with COPD (chronic obstructive pulmonary disease) ([facility]/HCC) Non-recurrent acute serous otitis media of left ear Influenza A- Primary Influenza with other respiratory manifestations Chronic obstructive pulmonary disease, unspecified COPD type ([facility]) Acute hypoxic respiratory failure ([facility]) Type 2 diabetes mellitus without complication, without long-term current use of insulin Primary hypertension ([facility]/HCC) Unspecified essential hypertension Benign neoplasm of cranial nerves (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) Scalp laceration, sequela- Primary Cigarette nicotine dependence without complication COPD exacerbation ([facility]) Obstructive chronic bronchitis with exacerbation Type 2 diabetes mellitus without complication, without long-term current use of insulin- Primary Chronic obstructive pulmonary disease, unspecified COPD type ([facility]/HCC) Primary hypertension ([facility]) Unspecified essential hypertension Vitamin D deficiency Iron deficiency anemia due to chronic blood loss Iron deficiency anemia secondary to blood loss (chronic) Cigarette nicotine dependence without complication Recurrent major depressive disorder, in full remission ([facility]) Generalized anxiety disorder ([facility]) Generalized anxiety disorder Screening mammogram, encounter for Other hyperlipidemia Acute hypoxic respiratory failure ([facility]) Acquired hypothyroidism ([facility])- Primary Unspecified hypothyroidism documented in this encounter [facility] HealthcareEvaluation note* Diagnosis Iron deficiency anemia due to chronic blood loss- Primary Iron deficiency anemia secondary to blood loss (chronic) Current smoker Other hyperlipidemia Moderate persistent asthma without complication ([facility]/HCC) Type 2 diabetes mellitus without complication, without long-term current use of insulin Screening mammogram, encounter for Recurrent major depressive disorder, in full remission ([facility]) Asthma with COPD (chronic obstructive pulmonary disease) ([facility])- Primary Iron deficiency anemia due to [...] Asthma with COPD (chronic obstructive pulmonary disease) ([facility]/HCC) Non-recurrent acute serous otitis media of left ear Influenza A- Primary Influenza with other respiratory manifestations Chronic obstructive pulmonary disease, unspecified COPD type ([facility]) Acute hypoxic respiratory failure (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) Scalp laceration, sequela- Primary Cigarette nicotine dependence without complication COPD exacerbation ([facility]) Obstructive chronic bronchitis with exacerbation Type 2 diabetes mellitus without complication, without long-term current use of insulin- Primary Chronic obstructive pulmonary disease, unspecified COPD type (CMS/HCC) Primary hypertension ([facility]/HCC) Unspecified essential hypertension Vitamin D deficiency Iron deficiency anemia due to chronic blood loss Iron deficiency anemia secondary to blood loss (chronic) Cigarette nicotine dependence without complication Recurrent major depressive disorder, in full remission (CMS/HCC) Generalized anxiety disorder ([facility]/HCC) Generalized anxiety disorder Screening mammogram, encounter for Other hyperlipidemia Acute hypoxic respiratory failure ([facility]/HCC) Depression, unspecified ([facility]/HCC) documented in this encounter [facility] HealthcareEvaluation note* Diagnosis Iron deficiency anemia due to chronic blood loss- Primary Iron deficiency anemia secondary to blood loss (chronic) Current smoker Other hyperlipidemia Moderate persistent asthma without complication (CMS/HCC) Type 2 diabetes mellitus without complication, without long-term current use of insulin Screening mammogram, encounter for Recurrent major depressive disorder, in full remission (CMS/HCC) Asthma with COPD (chronic obstructive pulmonary disease) ([facility])- Primary Iron deficiency anemia due to chronic blood loss Iron deficiency anemia secondary to blood loss (chronic) Type 2 diabetes mellitus without complication, without long-term current use of insulin Primary hypertension ([facility]) Unspecified essential hypertension Asthma with COPD (chronic obstructive pulmonary disease) ([facility])- Primary Primary hypertension ([facility]) Unspecified essential hypertension Type 2 diabetes mellitus without complication, without long-term current use of insulin Primary hypertension ([facility])- Primary Unspecified essential hypertension Asthma with COPD (chronic obstructive pulmonary disease) ([facility]) Iron deficiency anemia due to chronic blood loss Iron deficiency anemia secondary to blood loss (chronic) Other hyperlipidemia Type 2 diabetes mellitus without complication, without long-term current use of insulin Vitamin D deficiency Dermoid cyst of right ear Tobacco dependency Tobacco use disorder Primary hypertension ([facility])- Primary Unspecified essential hypertension Type 2 diabetes mellitus without complication, without long-term current use of insulin Other hyperlipidemia Asthma with COPD (chronic obstructive pulmonary disease) ([facility]) Non-recurrent acute serous otitis media of left ear Influenza A- Primary Influenza with other respiratory manifestations Chronic obstructive pulmonary disease, unspecified COPD type ([facility]) Acute hypoxic respiratory failure ([facility]) Type 2 diabetes mellitus without complication, without long-term current use of insulin Primary hypertension ([facility]) Unspecified essential hypertension Benign neoplasm of cranial nerves (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) Scalp laceration, sequela- Primary Cigarette nicotine dependence without complication COPD exacerbation ([facility]) Obstructive chronic bronchitis with exacerbation Type 2 diabetes mellitus without complication, without long-term current use of insulin- Primary Chronic obstructive pulmonary disease, unspecified COPD type ([facility]) Primary hypertension ([facility]) Unspecified essential hypertension Vitamin D deficiency Iron deficiency anemia due to chronic blood loss Iron deficiency anemia secondary to blood loss (chronic) Cigarette nicotine dependence without complication Recurrent major depressive disorder, in full remission ([facility]) Generalized anxiety disorder ([facility]) Generalized anxiety disorder Screening mammogram, encounter for Other hyperlipidemia Acute hypoxic respiratory failure ([facility]) Osteoarthritis, unspecified osteoarthritis type, unspecified site- Primary documented in this encounter [facility] HealthcareEvaluation note* Diagnosis Iron deficiency [...] pulmonary disease) (HCC) documented in this encounter [facility] HealthcareEvaluation note* Diagnosis Iron deficiency [...] esophagitis Depression, unspecified documented in this encounter [facility] HealthcareEvaluation note* Diagnosis Iron deficiency anemia [...] COPD type (HCC) documented in this encounter [facility] HealthcareEvaluation note* Diagnosis Iron deficiency anemia [...] abnormal blood chemistry documented in this encounter [facility] HealthcareEvaluation note* Diagnosis Iron deficiency [...] disorder, in full remission acute Jul 10:36am [facility] Work Phone: Hospital Discharge instructions No data available for this section [facility] instructionsAmbulatory Orders* Referral to Wound Care Time Frame: 08/22/25, Location: None [facility] Work Phone: InstructionsNot on filedocumented in this encounter [facility]ructionsNot on filedocumented in this encounter [facility] SystemInstructionsNot on filedocumented in this encounter [facility] System[facility] note No data available for this section [facility] HospitalReason for referral (narrative)* Consultation (Routine) - Pending Review Specialty Diagnoses / Procedures Referred By Marilia underwood Referred To Contact Gastroenterology Diagnoses Iron deficiency anemia due to chronic blood loss Procedures [place] OFFICE/OUTPATIENT NEW HIGH MDM 60 MINUTES Daniel Cardoso NP [address] [place] [phone] Referral ID Status Reason Start Date Expiration Date Visits Requested Visits Authorized [id number] Pending Review Specialty Services Required 07/07/2024 01/03/2025 1 1 [facility]No reason for referral [facility] Work Phone: Summary Purpose Family History Relationship [...] +, Exacerbation COPD December 13, 2024 12:54pm [facility] 12/09January 04, 2025 8:55am Reason for Visit [...] section and content) DATE CREATED AUTHOR 10/22/2018 [email or web address] DATE CREATED AUTHOR AUTHOR'S ORGANIZ ATION 01/09/2023 [facility] DATE CREATED AUTHOR AUTHOR'S ORGANIZ ATION 12/17/2023 [facility] DATE CREATED AUTHOR AUTHOR'S ORGANIZ ATION 12/17/2024 [facility] DATE CREATED AUTHOR AUTHOR'S ORGANIZ ATION 06/28/2025 [facility] Special[facility] DATE CREATED AUTHOR AUTHOR'S ORGANIZ ATION 07/20/2025 [facility] Patient Care team informatio n (unrecognized section and content) Ortho Nurse Relationship Specialty Start Date End Date Shaikh Sánchez MD [address] [place] [address] PCP - Linda MORALES 11/14/23 Shaikh Sánchez MD [address] [place] [address] PCP - General Internal Medicine 01/16/24 Zamzam Wheeler NP [address] [place] [address] Nurse Practitioner Internal Medicine 01/16/24 Kirstin Carreon LPN Licensed Practical Nurse Family Medicine 07/27/24 Ortho Nurse Relationship Specialty Start Date End Date Shaikh Sánchez MD [address] [place] [address] PCP - Linda MORALES 11/14/23 Ian Soares MD [address] [place] [address] PCP - General Family Medicine 09/11/24 Zamzam Wheeler NP [address] [place] [address] Nurse Practitioner Internal Medicine 01/16/24 Kirstin Carreon LPN Licensed Practical Nurse Family Medicine 07/27/24 Daniel Cardoso NP [address] [place] [address] Nurse Practitioner Family Medicine 09/11/24 Ortho Nurse Relationship Specialty Start Date End Date Shaikh Sánchez MD [address] [place] [address] PCP Shayy Mckeon MA 11/14/23 Ian Soares MD [address] [place] [address] PCP - General Family Medicine 09/11/24 Zamzam Wheeler NP [address] [place] [address] Nurse Practitioner Internal Medicine 01/16/24 Kirstin Carreon LPN Licensed Practical Nurse Family Medicine 07/27/24 Daniel Cardoso NP [address] [place] [address] Nurse Practitioner Family Medicine 09/11/24 Ortho Nurse Relationship Specialty Start Date End Date Shaikh Sánchez MD [address] [place] [address] PCP - [facility] 11/14/23 Ian Soares MD [address] [place] [address] PCP - General Family Medicine 09/11/24 Zamzam Wheeler NP [address] [place] [address] Nurse Practitioner Internal Medicine 01/16/24 Kirstin Carreon LPN Licensed Practical Nurse Family Medicine 07/27/24 Daniel Cardoso NP [address] [place] [address] Nurse Practitioner Family Medicine 09/11/24 Ortho Nurse Relationship Specialty Start Date End Date Shaikh Sánchez MD [address] [place] [address] PCP - Linda MORALES 11/14/23 Ian Soares MD [address] [place] [address] PCP - General Family Medicine 09/11/24 Zamzam Wheeler NP [address] [place] [address] Nurse Practitioner Internal Medicine 01/16/24 Kirstin Carreon LPN Licensed Practical Nurse Family Medicine 07/27/24 Daniel Cardoso NP [address] [place] [address] Nurse Practitioner Family Medicine 09/11/24 Ortho Nurse Relationship Specialty Start Date End Date Shaikh Sánchez MD [address] [place] [address] PCP - Linda MORALES 11/14/23 Shaikh Sánchez MD [address] [place] [address] PCP - General Internal Medicine 01/16/24 Zamzam Wheeler SECURITY BUSINESS ANALYST [address] [place] [address] Nurse Practitioner Internal Medicine 01/16/24 Gustavo Romero LPN Licensed Practical Nurse Family Medicine 07/04/24 Ortho Nurse Relationship Specialty Start Date End Date Shaikh Sánchez MD [address] [place] [address] PCP - Linda MORALES 11/14/23 Ian Soares MD [address] [place] [address] PCP - General Family Medicine 09/11/24 Zamzam Wheeler NP [address] [place] [address] Nurse Practitioner Internal Medicine 01/16/24 Daniel Cardoso NP [address] [place] [address] Nurse Practitioner Family Medicine 09/11/24 Arturo Chanel MA Family Medicine 09/24/24 Ortho Nurse Relationship Specialty Start Date End Date Shaikh Sánchez MD [address] [place] [address] PCP - Linda MORALES 11/14/23 Shaikh Sánchez MD [address] [place] [address] PCP - General Internal Medicine 01/16/24 Zamzam Wheeler SECURITY BUSINESS ANALYST [address] [place] [address] Nurse Practitioner Internal Medicine 01/16/24 Gustavo Romero LPN Licensed Practical Nurse Family Medicine 07/04/24 Ortho Nurse Relationship Specialty Start Date End Date Shaikh Sánchez MD [address] [place] [address] PCP - Linda MORALES 11/14/23 Shaikh Sánchez MD [address] [place] [address] PCP - General Internal Medicine 01/16/24 Zamzam Wheeler SECURITY BUSINESS ANALYST [address] [place] [address] Nurse Practitioner Internal Medicine 01/16/24 Gustavo Romero LPN Licensed Practical Nurse Family Medicine 07/04/24 Ortho Nurse Relationship Specialty Start Date End Date Shaikh Sánchez MD [address] [place] [address] PCP Shayy Mckeon MA 11/14/23 Shaikh Sánchez MD [address] [place] [address] PCP - General Internal Medicine 01/16/24 Zamzam Wheeler SECURITY BUSINESS ANALYST [address] [place] [address] Nurse Practitioner Internal Medicine 01/16/24 Gustavo Romero LPN Licensed Practical Nurse Family Medicine 07/04/24 Ortho Nurse Relationship Specialty Start Date End Date Shaikh Sánchez MD [address] [place] [address] SHIVAM Mckeon MA 11/14/23 Shaikh Sánchez MD [address] [place] [address] PCP - General Internal Medicine 01/16/24 Zamzam Wheeler, GREG [address] [facility] [address] [place], [place] [address] Nurse Practitioner Internal Medicine 01/16/24 Kirstin Carreon LPN Licensed Practical Nurse Family Medicine 07/27/24 Ortho Nurse Relationship Specialty Start Date End Date Shaikh Sánchez MD [address] [place] [address] PCP - Linad MORALES 11/14/23 Ian Soares MD [address] [place] [address] PCP - General Family Medicine 09/11/24 Zamzam Wheeler NP [address] [place] [address] Nurse Practitioner Internal Medicine 01/16/24 Daniel Cardoso NP [address] [place] [address] Nurse Practitioner Family Medicine 09/11/24 Arturo Chanel MA Family Medicine 09/24/24 Ortho Nurse Relationship Specialty Start Date End Date Shaikh Sánchez MD [address] [place] [address] PCP - Linda MORALES 11/14/23 Ian Soares MD [address] [place] [address] PCP - General Family Medicine 09/11/24 Zamzam Wheeler NP [address] [place] [address] Nurse Practitioner Internal Medicine 01/16/24 Daniel Cardoso NP [address] [place] [address] Nurse Practitioner Family Medicine 09/11/24 Arturo Chanel MA [facility] Medicine 09/24/24 Ortho Nurse Relationship Specialty Start Date End Date Shaikh Sánchez MD [address] [place] [address] PCP - [facility] 11/14/23 Ian Soares MD [address] [place] [address] PCP - General Family Medicine 09/11/24 Zamzam Wheeler NP [address] [place] [address] Nurse Practitioner Internal Medicine 01/16/24 Daniel Cardoso NP [address] [place] [address] Nurse Practitioner Family Medicine 09/11/24 Arturo Chanel [...] Suzette Ng MD Other Provider Active Start: camuy 2024 End: December 14, 2024 Ryan Arshad [...] December 13, 2024 Dave Bazan MD Attending Az ovid, Other Provider Active Start: December 13, 2024 Ortho Nurse Relationship Specialty Start Date End Date Gianna Isabel MD PCP - General Family Medicine 02/07/17 Ortho Nurse Relationship Specialty Start Date End Date Gianna Isabel MD PCP - General Family Medicine 02/07/17 Ortho Nurse Relationship Specialty Start Date End Date Gianna Isabel MD PCP - General Family Medicine 02/07/17 Team Status: Inactive Member Role Status Dates Daniel Cardoso SECURITY BUSINESS ANALYST-C Primary Care Provider Ac tive Start: December [...] Active Member Role Status Dates Daniel Cardoso SECURITY BUSINESS ANALYST-C Primary Care Provider Ac tive Start: December [...] January 04, 2025 End: January 04, 2025 Ortho Nurse Relationship Specialty Start Date End Date Ian Soares MD [address] [place] [address] PCP - General Family Medicine 09/11/24 Zamzam Wheeler NP Nurse Practitioner Internal Medicine 01/16/24 Daniel Cardoso NP [address] [place] [address] Nurse Practitioner Family Medicine 09/11/24 Arturo Chanel MA Family Medicine 09/24/24 Ortho Nurse Relationship Specialty Start Date End Date Ian Soares MD [address] [place] [address] PCP - General Family Medicine 09/11/24 Zamzam Wheeler NP Nurse Practitioner Internal Medicine 01/16/24 Daniel Cardoso NP [address] [place] [address] Nurse Practitioner Family Medicine 09/11/24 Arturo Chanel MA [facility] Medicine 09/24/24 Ortho Nurse Relationship Specialty Start Date End Date Shaikh Sánchez MD [address] [place] [address] PCP - [facility] 11/14/23 Ian Soares MD [address] [place] [address] PCP - General Family Medicine 09/11/24 Zamzam Wheeler SECURITY BUSINESS ANALYST [address] [place] [address] Nurse Practitioner Internal Medicine 01/16/24 Daniel Cardoso NP [address] [place] [address] Nurse Practitioner Family Medicine 09/11/24 Arturo Chanel MA Family Medicine 09/24/24 Ortho Nurse Relationship Specialty Start Date End Date Shaikh Sánchez MD [address] [place] [address] PCP - Linda MORALES 11/14/23 Ian Soares MD [address] [place] [address] PCP - General Family Medicine 09/11/24 Zamzam Wheeler SECURITY BUSINESS ANALYST [address] [place] [address] Nurse Practitioner Internal Medicine 01/16/24 Daniel Cardoso NP [address] [place] [address] Nurse Practitioner Family Medicine 09/11/24 Arturo Chanel MA Family Medicine 09/24/24 Ortho Nurse Relationship Specialty Start Date End Date Shaikh Sánchez MD [address] [place] [address] PCP - Linda MORALES 11/14/23 Ian Soares MD [address] [place] [address] PCP - General Family Medicine 09/11/24 Zamzam Wheeler SECURITY BUSINESS ANALYST [address] [place] [address] Nurse Practitioner Internal Medicine 01/16/24 Arturo Chanel MA Family Medicine 09/24/24 La Pack NP [address] [place] [address] Nurse Practitioner Family Medicine 02/06/25 Ortho Nurse Relationship Specialty Start Date End Date Shaikh Sánchez MD [address] [place] [address] PCP - Linda PR 11/14/23 Ian Soares MD [address] [place] [address] PCP - General Family Medicine 09/11/24 Zamzam Wheeler NP [address] [place] [address] Nurse Practitioner Internal Medicine 01/16/24 Arturo Chanel MA Family Medicine 09/24/24 La Pack NP [address] [place] [address] Nurse Practitioner Family Medicine 02/06/25 Ortho Nurse Relationship Specialty Start Date End Date Shaikh Sánchez MD [address] [place] [address] PCP - Linda PR 11/14/23 Ian Soares MD [address] [place] [address] PCP - General Family Medicine 09/11/24 Zamzam Wheeler, SECURITY BUSINESS ANALYST [address] [place] [address] Nurse Practitioner Internal Medicine 01/16/24 Arturo Chanel MA Family Medicine 09/24/24 La Pack NP [address] [place] [address] Nurse Practitioner Family Medicine 02/06/25 Ortho Nurse Relationship Specialty Start Date End Date Shaikh Sánchez MD [address] [place] [address] PCP - Linda MORALES 11/14/23 Ian Soares MD [address] [place] [address] PCP - General Family Medicine 09/11/24 Zamzam Wheeler NP [address] [place] [address] Nurse Practitioner Internal Medicine 01/16/24 Arturo Chanel MA Family Medicine 09/24/24 La Pack NP [address] [place] [address] Nurse Practitioner Family Medicine 02/06/25 Ortho Nurse Relationship Specialty Start Date End Date Shaikh Sánchez MD [address] [place] [address] PCP - Linda MORALES 11/14/23 Ian Soares MD [address] [place] [address] PCP - General Family Medicine 09/11/24 Zamzam Wheeler SECURITY BUSINESS ANALYST [address] [place] [address] Nurse Practitioner Internal Medicine 01/16/24 Arturo Chanel MA Family Medicine 09/24/24 La Pack NP [address] [place] [address] Nurse Practitioner Family Medicine 02/06/25 Ortho Nurse Relationship Specialty Start Date End Date Shaikh Sánchez MD [address] [place] [address] PCP - Linda PR 11/14/23 Ian Soares MD [address] [place] [address] PCP - General Family Medicine 09/11/24 Zamzam Wheeler NP [address] [place] [address] Nurse Practitioner Internal Medicine 01/16/24 Arturo Chanel MA Family Medicine 09/24/24 La Pack NP [address] [place] [address] Nurse Practitioner Family Medicine 02/06/25 Ortho Nurse Relationship Specialty Start Date End Date Shaikh Sánchez MD [address] [place] [address] PCP - Linda PR 11/14/23 Ian Soares MD [address] [place] [address] PCP - General Family Medicine 09/11/24 Zamzam Wheeler NP [address] [place] [address] Nurse Practitioner Internal Medicine 01/16/24 Arturo Chanel MA Family Medicine 09/24/24 La Pack NP [address] [place] [address] Nurse Practitioner Family Medicine 02/06/25 Ortho Nurse Relationship Specialty Start Date End Date Shaikh Sánchez MD [address] [place] [address] PCP - [facility] 11/14/23 Ian Soares MD [address] [place] [address] PCP - General Family Medicine 09/11/24 Zamzam Wheeler NP [address] [place] [address] Nurse Practitioner Internal Medicine 01/16/24 Arturo Chanel MA [address] [place] [address] Family Medicine 09/24/24 La Pack NP [address] [place] [address] Nurse Practitioner Family Medicine 02/06/25 Ortho Nurse Relationship Specialty Start Date End Date Shaikh Sánchez MD [address] [place] [address] PCP - Linda MORALES 11/14/23 Ian Soares MD [address] [place] [address] PCP - General Family Medicine 09/11/24 Zamzam Wheeler, SECURITY BUSINESS ANALYST [address] [place] [address] Nurse Practitioner Internal Medicine 01/16/24 Arturo Chanel MA [address] [place] [address] Family Medicine 09/24/24 La Pack NP [address] [place] [address] Nurse Practitioner Family Medicine 02/06/25 Ortho Nurse Relationship Specialty Start Date End Date Shaikh Sánchez MD [address] [place] [address] PCP - Linda MORALES 11/14/23 Ian Soares MD [address] [place] [address] PCP - General Family Medicine 09/11/24 Zamzam Wheeler, SECURITY BUSINESS ANALYST [address] [place] [address] Nurse Practitioner Internal Medicine 01/16/24 Arturo Chanel MA [address] [place] [address] Family Medicine 09/24/24 La Pack NP [address] [place] [address] Nurse Practitioner Family Medicine 02/06/25 Ortho Nurse Relationship Specialty Start Date End Date Shaikh Sánchez MD [address] [place] [address] PCP - Linda MORALES 11/14/23 Ian Soares MD [address] [place] [address] PCP - General Family Medicine 09/11/24 Zamzam Wheeler NP [address] [place] [address] Nurse Practitioner Internal Medicine 01/16/24 Arturo Chanel PR [address] [place] [address] Family Medicine 09/24/24 La Pack NP [address] [place] [address] Nurse Practitioner Family Medicine 02/06/25 Ortho Nurse Relationship Specialty Start Date End Date Shaikh Sánchez MD [address] [place] [address] PCP - Linda MORALES 11/14/23 aIn Soares MD [address] [place] [address] PCP - General Family Medicine 09/11/24 Zamzam Wheeler NP [address] [place] [address] Nurse Practitioner Internal Medicine 01/16/24 Arturo Chanel MA [address] [place] [address] Family Medicine 09/24/24 La Pack NP [address] [place] [address] Nurse Practitioner Family Medicine 02/06/25 Ortho Nurse Relationship Specialty Start Date End Date Shaikh Sánchez MD [address] [place] [address] PCP - [facility] 11/14/23 Ian Soares MD [address] [place] [address] PCP - General Family Medicine 09/11/24 Zamzam Wheeler NP [address] [place] [address] Nurse Practitioner Internal Medicine 01/16/24 Arturo Chanel MA [address] [place] [address] Family Medicine 09/24/24 La Pack NP [address] [place] [address] Nurse Practitioner Family Medicine 02/06/25 Ortho Nurse Relationship Specialty Start Date End Date Shaikh Sánchez MD [address] [place] [address] PCP - [facility] 11/14/23 Ian Soares MD [address] [place] [address] PCP - General Family Medicine 09/11/24 Zamzam Wheeler NP [address] [place] [address] Nurse Practitioner Internal Medicine 01/16/24 La Pack NP [address] [place] [address] Nurse Practitioner Family Medicine 02/06/25 Team Status: [...] BE BASED ON THE PRIMARY CLINICAL RECORDS. [employer] provides no warranty or guarantee of the accuracy or completeness of information in this document.
== END 2025-08-27 13:36 | disposition home or self-care (01) ==
LOC: WC 13:35
PROVIDERS: PCP Nurse Practitioner; Visit Provider Physician Assistant
DX: L98.9 Disorder of the skin and subcutaneous tissue, unspecified (principal)
CPT/HCPCS: G0463

== ENCOUNTER 2025-09-17 13:17 | Outpatient (OUT) | payer MEDICARE, MEDICAID, SELFPAY ==
--- OUTSIDE RECORDS SUMMARY | 2025-09-12 08:58 | XMS_ITS | Continuity of Care Document ---
Author Organization [facility] Address [address] [place] [address] Phone Care Team Providers Care Senior Data Analyst Name Role Phone La Pack GANG RIPSAW OPERATOR-C Primary Care Provider [phone] La Pack GANG RIPSAW OPERATOR-C Attending Provider Care Teams Patient Care Team Team Status: Active Member Role/Relationship Status Dates La Pack GANG RIPSAW OPERATOR-C Primary Care Provider Active Visit Care Team Team Status: Inactive Member Role/Relationship Status Dates La Pack GANG RIPSAW OPERATOR-C Primary Care Provider Active Start: July 31, 2025 End: July 31, 2025La Pack NP-CAttending ProviderActiveStart: July 31, 2025 End: July 31, 2025 Visit Care Team Team Status: Active Member Role/Relationship Status Dates La Pack GANG RIPSAW OPERATOR-C Primary Care Provider Active Start: August 12, 2025 La Pack GANG RIPSAW OPERATOR-CAttending ProviderActiveStart: August 12, 2025 Visit Care Team Team Status: Inactive Member Role/Relationship Status Dates La Pack GANG RIPSAW OPERATOR-C Primary Care Provider Active Start: August 22, 2025 End: August 22, 2025La Pack NP-CAttending ProviderActiveStart: August 22, 2025 End: August 22, 2025 Visit Care Team Team Status: Active Member Role/Relationship Status Dates La Pack GANG RIPSAW OPERATOR-C Primary Care Provider Active Start: August 27, 2025 La Pack GANG RIPSAW OPERATOR-CAttending ProviderActiveStart: August 27, 2025 Patient Care Team Team Status: Inactive Member Role/Relationship Status Dates SILVER Norman Primary Care Provider Active Start: September 12, 2025 End: September 12, 2025Pepe Norman ProviderActiveStart: September 12, 2025 End: September 12, 2025 Chief Complaint and Reason for Visit Chief Complaint Admit Date Established Patient July 31, 2025 10:36am 3W August 22, 2025 8: 52am 3W September 12, 2025 1 :01pm Reason for Visit Admit Date Edema of both lower extremities Septembe r 2024 10:36am Elevated TSH July 31, 2025 10:36am Generalized anxiety disorder July 152024 10:36am Iron deficiency anemia due to chronic bl ood loss July 31, 2025 10:36am Recurrent major depressive disorder, in full remission July 31, 2025 10:36am Cigarette nicotine dependence without co mplication August 22, 2025 8:52am COPD (chronic obstructive pulmonary dise ase) August 22, 2025 8:52am Edema of both lower extremities August 22, 2025 8:52am Iron deficiency anemia due to chronic bl ood loss August 22, 2025 8:52am Open wound of both legs with complicatio n August 22, 2025 8:52am Primary hypertension August 22, 2025 8 :52am Cigarette nicotine dependence without co mplication September 12, 2025 1:01pm Edema of both lower extremities September 12, 2025 1:01pm Iron deficiency anemia due to chronic bl ood loss September 12, 2025 1:01pm Open wound of both legs with complicatio n September 12, 2025 1:01pm Primary hypertension September 12, 2025 1:01pm Allergies, Adverse Reactions, Alerts Allergen Type Severity Reaction Last Updated Verified Status No Known Allergies Allergy Unknown July 28, 2025 8:39pmYesActive Social History Smoking Status Status Start Date End Date Date of Observa tion Ex-smoker (finding) January 04, 2025 9:04am Observation Status Observation Response Date of Response Legal Sex Female (finding) Sex [facility] 1954 Family History Relationship Condition Age at Onset Recorded Date/T hiram father Heart disease Unknown brotherDiabetes mellitusUnknownHeart diseaseUnknown Problems Active Problems Problem Diagnosis/Recorded Date Onset Date Stat us Edema of both lower extremities July 18, 2025 9: 30am Unknown Active Encounter for subsequent benigno [facility] wellness visit (AWV) in Medicare patient July 18, 2025 9:31am Unknown A ctive Generalized anxiety disorder July 18, 2025 9:31a m Unknown Active Myelopathy July 18, 2025 9:31am Unknown A ctive Acute hypoxic respiratory failure December 09, 2024 1 1:18pm Unknown Active Screening mammogram, encounter for July 18, 2025 9:55am Unknown Active Cigarette nicotine dependenc e without complication July 18, 2025 9:29am Unknown Active Impaired mobility and activi ties of daily living December 13, 2024 2:29pm Unknown Active Other hyperlipidemia July 18, 2025 9:32am Unknow n Active Acquired hypothyroidism July 18, 2025 9:23am Unk nown Active Iron deficiency anemia due t o chronic blood loss July 18, 2025 9:31am Unknown Active Demyelinating disease July 18, 2025 9:30am Unkno wn Active Dyslipidemia December 09, 2024 11:18pm Unknown A ctive Cellulitis July 18, 2025 9:24am Unknown A ctive Dermoid cyst of right ear July 18, 2025 9:30am U nknown Active Depression December 09, 2024 11:19pm Unknown A ctive Osteoarthritis July 18, 2025 9:32am Unknown Active Elevated troponin December 10, 2024 11:23am Unknown Active Tobacco abuse December 12, 2024 3:45pm Unknown A ctive Primary hypertension July 18, 2025 9:53am Unknow n Active Open wound of both legs with complication August 22, 2025 9:47am Unknown Active Abnormal CBC July 18, 2025 9:22am Unknown A ctive Type 2 diabetes mellitus wit hout complication, without long-term current use of insulin July 18, 2025 9:56am Unknown Active Recurrent falls July 18, 2025 9:54am Unknown Active Elevated TSH July 18, 2025 9:30am Unknown A ctive Recurrent major depressive d isorder, in full remission July 18, 2025 9:54am Unknown Active Right acoustic neuroma July 18, 2025 9:54am Unkn own Active COPD (chronic obstructive pu lmonary disease) July 18, 2025 9:29am Unknown Active Positive fecal occult blood test July 18, 2025 9 :32am Unknown Active COPD exacerbation December 09, 2024 11:18pm Unknown Active Sensorineural hearing loss of right ear July 18, 2025 9:55am Unknown Active HTN (hypertension) December 09, 2024 11:18pm Unknown Active Vitamin D deficiency July 18, 2025 9:57am Unknow n Active Inactive/Resolved Problems Problem Diagnosis/Recorded Date Onset Date Stat us Aspiration pneumonia December 09, 2024 11:18pm Unknow n Resolved Hypotension December 10, 2024 11:28am Unknown R esolved Medications Medication Status Dose Units Route Directions Qty Days Refills S tart Date Stop Date End Date Reason(s) Instructions Adherence Oxvzkhsbpxb-Iqctpttik-Ftubyk er (Trelegy Ellipta) 200-62.5-25 mcg blister with device Active 1 INH INHALATION Kristie ly 180 1Sept2024 11:18amChronic obstructive pulmonary disease Chronic obstructive pulmonary disease, unspecifiedUnknownAlbuterol Sulfate 2.5 mg /3 mL (0.083 %) solution for nebulizationDiscontinued2.5MGINHALATIONEvery 6 [id number] 4th, 2025 11:20amSeptember 2024 8:50pmChronic obstructive pulmonary disease Chronic obstructive pulmonary disease, unspecifiedAlbuterol Sulfate 90 mcg/actuation HFA aerosol dkrhkoyCtweaicsdhdr6VZXELVVKEBRAFELram times daily as needed for shortness of breath or wheezing8.51Se2024 7:13pm August 01, 2025 8:50pmChronic obstructive pulmonary disease Chronic obstructive pulmonary disease, unspecifiedLosartan 50 mg azwmysXgfuyy97 RCWEZbeyk525Xthdlujrq 23rd, 2025 2:00pmHypertension Essential (primary) hypertensionUnknownLosartan 50 mg tabletDiscontinuedMG December 10, 2024 1:00amFebruary 2024 10:14amAtorvastatin 40 mg tablet DiscontinuedMGDecember 10, 2024 1:00amFebruary 2024 10:14amMetformin 500 mg tabletDiscontinuedMGNovember 2024 1:00amFebruary 2024 10:14am Meloxicam 7.5 mg tabletDiscontinuedMGNovuary 2024 1:00amFebruary 2024 10:14amOmeprazole 20 mg capsule,delayed release(DR/EC)DiscontinuedMGNovuary 2024 1:00amFebruary 2024 10:14amAlbuterol Sulfate 90 mcg/actuation HFA aerosol inhalerDiscontinuedINHALATIONNovuary 2024 1:00amSept2024 7:14pmSertraline 50 mg tabletDiscontinuedMGNovuary 2024 1:00January 04, 2025 10:19wnSyogsvhqeck-Lpusmrjcm-Ognzdjon (Trelegy Ellipta) 200-62.5-25 mcg blister with deviceDiscontinuedINHALATIONNovuary 2024 1:00amFebruary 2024 10:14amPrednisone 20 mg EcjrieCmwlokrfzcxv05SXVDEfmql7 2024 1:00amFebruary 2024 10:14amOseltamivir 30 mg Capsule Sroemnqoszps64EHJIAyqdl kesxk762Gdkndmr2024 1:00amFebruary 2024 10:14amAmoxicillin-Pot Clavulanate (Augmentin) 500-125 mg qdlhvtXowqxwijvkvp7NCD POTwice yjtta819Buxklrq2024 1:00amFebruary 2024 10:14amAtorvastatin 40 mg pnnvbdVycipn48IWLXShunlAvldhchz 2024 10:11amUnknown Nmbyjngsqfy-Qwvooyhcw-Ujpbrlfe (Trelegy Ellipta) 200-62.5-25 mcg blister with deviceDiscontinuedINHALATIONTwice dailyuary 2024 10:12amSeptember 2024 11:20amLosartan 50 mg nqktxwXfdeofehiktc45HAQBNqbclCoopdqii 2024 10:12amSeptember 2024 2:00pmMeloxicam 7.5 mg tabletActive7.5MGPODaily January 04, 2025 10:13amUnknownMetformin 500 mg oobjfzMlpofx005KSIULkqhq January 04, 2025 10:13amUnknownOmeprazole 20 mg capsule,delayed release(DR/EC)Sstycp18VQRYWnsvrJjumxlzl 2024 10:13amUnknownSertraline 50 mg aplibdEcvjhtxbwenc61QSTNAdbdsSzshgiph 2024 10:14amSept2024 10:56amSertraline 50 mg uqhjfpHmpijc6RASuhdcVudeucpon 4th, 2025 10:26kx086DG orally daily;UnknownBuspirone 5 mg avdqzwAlzytiruovfs4LWIPXplpx dailySeptember 2024 12:00amSeptember 2024 11:35amAlbuterol Sulfate 2.5 mg /3 mL (0.083 %) solution for nebulizationDiscontinued2.5MGINHALATIONEvery 6 hours July 18, 2025 12:00amSeptember 2024 11:20amAlbuterol Sulfate 90 mcg/actuation HFA aerosol hchndnhZpbgvrxwztlq8UXGMDIWNHNNVUSEcunn 4 hours July 18, 2025 12:00amSeptember 2024 8:49pmRsv Vac, Pref A And Pref B(Pf) (Abrysvo (Pf)) 120 mcg/0.5 mL recon solnDiscontinuedMLIMSept2024 12:00amSeptember 2024 8:42pmFurosemide 20 mg kgopccCajiclexwsjh82JFJE DailySept2024 12:00amSeptember 2024 11:35amLorazepam (Ativan) 0.5 mg tabletDiscontinued0.5MGPODaily at bedtime as neededpt2024 12:00amOctober 2024 9:27amFurosemide 40 mg odskoqHaueygjjousp27PNGIXdlhm608 July 31, 2025 12:00amOctober 2024 9:44amEdema of both lower extremities Localized edemaBuspirone 7.5 mg tabletDiscontinued7.5MGPOTwice gzjyo845Ptxtuxbmu 17th, 2025 12:00amOctober 2024 9:55amGeneralized anxiety disorder Generalized anxiety disorderAlbuterol Sulfate 90 mcg/actuation HFA aerosol gltnqxnWwzqds6JHHSBJSEWHXRIIJkrr times daily as needed for shortness of breath or wheezing8.51August 01, 2025 8:50pmChronic obstructive pulmonary disease Chronic obstructive pulmonary disease, unspecifiedUnknownAlbuterol Sulfate 2.5 mg /3 mL (0.083 %) solution for nebulizationActive2.5MGINHALATIONEvery 6 hours 6433248OcfbkrtpsAugust 01, 2025 8:50pmChronic obstructive pulmonary disease Chronic obstructive pulmonary disease, unspecifiedUnknownBumetanide 1 mg tablet Qgjpme7NAFWOvcqn262Vyyrlfb 2024 12:00amEdema of both lower extremities Localized edemaUnknownBuspirone 7.5 mg tabletActive7.5MGPOTwice djcjz502Umrvqfj 2024 9:54amGeneralized anxiety disorder Generalized anxiety disorderUnknownAcetaminophen 500 mg lltvasyMymjww203EIQL Every 6 hours as neededFebruary 2024 1:00amUnknownLorazepam 0.5 mg tablet Discontinued0.5MGPOThree times daily as neededFebruary 2024 1:00am July 28, 2025 8:43pmOndansetron Hcl 4 mg hkkeakSrzzgv4QCOXEgboo 6 hours as neededFebruary 2024 1:00amUnknown Relevant Diagnostic Tests and/or Laboratory Data Laboratory Results Test Collection Date/Time Result Date/Time Result Interpretation Reference Range Result Comment Performing Site Ferritin August 12, 2025 1:07pm August 12 1:07pm 93.0 ng/mL 8.0-252.0Anion GapSept2024 1:07pmSept2024 1:07pm11.6 [facility] 2024 2:05pmOctober 2024 2:71uh827 mg/hU290-657 Performed at: [address] [id number] Director: Ever Pink PhD, Phone: [phone] 14th, 2025 2:05pmOct2024 2:05pm95.0 ng/mL8.0-252.0Iron SaturationAugust 27, 2025 2:05pmAugust 27, 2025 2:05pm13.7 %PrealbuminAugust 27, 2025 2:05pm August 27, 2025 2:05pm21.9 mg/dL20.9-45.5B-Type Natriuretic PeptideAugust 27, 2025 2:05pmAugust 27, 2025 2:62uv645.0 pg/mL<=900.0Anion GapAugust 27, 2025 2:05pmOct2024 2:05pm7.8Basophils # (Auto)August 27, 2025 2:05pmOct2024 2:05pm0.1 10 3/uL0.0-0.1Albumin/Globulin Ratio August 12, 2025 1:07pmSeptember 2024 1:07pm0.9Iron LevelAugust 27, 2025 2:05pmOct2024 2:05pm40.0 ug/dLBelow low iiqeeb67.0-170.0 Albumin/Globulin RatioAugust 27, 2025 2:05pmAugust 27, 2025 2:05pm0.8 Basophils (%) (Auto)August 27, 2025 2:05pmOct2024 2:05pm0.5 % 0.2-2.0AlbuminSeptember 2024 1:07pmSeptember 2024 1:07pm3.6 g/dL 3.4-5.0Total Iron Binding CapacityAugust 27, 2025 2:05pmOct2024 2:62uu948.0 ug/dL250.0-450.0AlbuminAugust 27, 2025 2:05pmOct2024 2:05pm3.4 g/dL3.4-5.0Eosinophils # (Auto)August 27, 2025 2:05pmOct2024 2:05pm0.1 10 3/uL0.0-0.7Alkaline PhosphataseSeptember 2024 1:07pm August 12, 2025 1:99tt148 U/J28-828Iblvkmsp PhosphataseOct2024 2:05pmOct2024 2:20sq946 U/LAbove high -320Tjeawjrmvcx (%) (Auto)August 27, 2025 2:05pmOct2024 2:05pm1.0 %0.9-7.0Alanine Aminotransferase (ALT/SGPT)August 12, 2025 1:07pmSept2024 1:07pm29 U/P80-55Swkvibq Aminotransferase (ALT/SGPT)August 27, 2025 2:05pm August 27, 2025 2:05pm33 U/Y46-17YosrmdhukpPwsajth 14th, 2025 2:05pmOct2024 2:05pm31.3 %Below low nonjku11.0-48.0Aspartate Amino Transf (AST/SGOT)August 12, 2025 1:07pmSept2024 1:07pm15 U/L15-37 Aspartate Amino Transf (AST/SGOT)August 27, 2025 2:05pmOct2024 2:05pm14 U/LBelow low bgzeqk97-21EryjqndwyaNwellzn 14th, 2025 2:05pmOct2024 2:05pm9.6 g/dLBelow low kssirx12.0-16.0BUN/Creatinine RatioSeptember 2024 1:07pmSept2024 1:07pm37.0BUN/Creatinine RatioOct2024 2:05pmOct2024 2:05pm32.6Immature Granulocyte # (Auto) August 27, 2025 2:05pmOct2024 2:05pm0.03 10 3/uL0.00-0.03Blood Urea NitrogenSeptember 2024 1:07pmSeptember 2024 1:07pm27.0 mg/dL Above high normal7.0-18.0Blood Urea NitrogenOct2024 2:05pmOctober 2024 2:05pm28.0 mg/dLAbove high normal7.0-18.0Immature Granulocyte % (Auto)August 27, 2025 2:05pmOct2024 2:05pm0.3 %0.0-0.5Calcium LevelSeptember 2024 1:07pmSept2024 1:07pm9.1 mg/dL8.5-10.1 Calcium LevelOct2024 2:05pmOct2024 2:05pm9.3 mg/dL8.5-10.1 Lymphocytes # (Auto)August 27, 2025 2:05pmOct2024 2:05pm0.9 10 3/uLBelow low normal1.2-3.8Chloride LevelSept2024 1:07pmSeptember 2024 1:51pm777 mmol/F34-293Szhokrau LevelAugust 27, 2025 2:05pmOctober 2024 2:68zv969 mmol/P55-940Twkibjaajvp (%) (Auto)August 27, 2025 2:05pm August 27, 2025 2:05pm9.6 %Below low .5-60.0Carbon Dioxide Level August 12, 2025 1:07pmSept2024 1:07pm34.6 mmol/LAbove high iceanm74.0-32.0Carbon Dioxide LevelAugust 27, 2025 2:05pmOctober 2024 2:05pm38.6 mmol/LAbove high wtaseb39.0-32.0Mean Corpuscular HemoglobinOct2024 2:05pmOct2024 2:05pm27.8 pg26.7-34.0CreatinineSeptember 2024 1:07pmSeptember 2024 1:07pm0.73 mg/dL0.55-1.02CreatinineOct2024 2:05pmOct2024 2:05pm0.86 mg/dL0.55-1.02Mean Corpuscular Hemoglobin ConcentOct2024 2:05pmOct2024 2:05pm30.7 g/dL 29.9-35.2Estimated GFR ()August 12, 2025 1:07pmSept2024 1:07pm>60>=60 mL/min/1.73m 2Estimated GFR ()August 27, 2025 2:05pmOct2024 2:05pm>60>=60 mL/min/1.73m 2Mean Corpuscular VolumeOct2024 2:05pmOct2024 2:05pm90.7 fL81.0-99.0 Estimated GFR (Non- AmericanSeptember 2024 1:07pmSept2024 1:07pm>60>=60 mL/min/1.73m 2Estimated GFR (Non- AmericanOct2024 2:05pmOct2024 2:05pm>60>=60 mL/min/1.73m 2Monocytes # (Auto)August 27, 2025 2:05pmOct2024 2:05pm1.0 10 3/uLAbove high normal0.3-0.8GlobulinSeptember 2024 1:07pmSeptember 2024 1:07pm3.9 g/dLGlobulinOctober 2024 2:05pmOct2024 2:05pm4.3 g/dLMonocytes (%) (Auto)August 27, 2025 2:05pmOct2024 2:05pm10.3 %1.7-12.0 Glucose LevelSeptember 2024 1:07pmSept2024 1:47yh865 mg/dL Above high -038Nqodjga LevelOctober 2024 2:05pmOctober 2024 2:59fg264 mg/dLAbove high wsypgq12-406Sjug Platelet VolumeOct2024 2:05pmOct2024 2:05pm9.5 fL9.5-13.5Potassium LevelSeptember 2024 1:07pmSept2024 1:07pm4.2 mmol/L3.5-5.1Potassium LevelOct2024 2:05pmOct2024 2:05pm4.4 mmol/L3.5-5.1Neutrophils # (Auto)August 27, 2025 2:05pmOct2024 2:05pm7.2 10 3/uLAbove high normal1.4-6.5 Sodium LevelSeptember 2024 1:07pmSept2024 1:67to056 mmol/L 136-145Sodium LevelOct2024 2:05pmOct2024 2:76xw171 mmol/L 136-145Neutrophils (%) (Auto)August 27, 2025 2:05pmOct2024 2:05pm 78.3 %Above high xxdtej54.0-75.0Total BilirubinSept2024 1:07pm August 12, 2025 1:07pm0.3 mg/dL0.2-1.0Total BilirubinOct2024 2:05pmOct2024 2:05pm0.3 mg/dL0.2-1.0Platelet CountOct2024 2:05pmOct2024 2:56xk273 10 3/wT114-801Pdnzm ProteinSeptember 2024 1:07pmSept2024 1:07pm7.5 g/dL6.4-8.2Total ProteinOctober 2024 2:05pmOct2024 2:05pm7.7 g/dL6.4-8.2Red Blood CountOct2024 2:05pmAugust 27, 2025 2:05pm3.45 10 6/uLBelow low normal4.20-5.40Red Cell Distribution WidthOct2024 2:05pmAugust 27, 2025 2:05pm16.5 % Above high nncxob27.0-15.0Corrected White Blood CountOct2024 2:05pm August 27, 2025 2:05pm9.2 10 3/uL4.0-11.0 Vital Signs Vital Reading Result Reference Range Collection Date/Time Height 63 [in_i] July 31, 2025 11:02amBody Lhmqctfbqqa94.1 [degF]97.6-99.0September 2024 11:02amHeart Rate92 /nvs72-940Nyyykjldx 2024 11:02amRespiratory rate 18 /hua14-48Xrxjiovtw 2024 11:02amOxygen saturation by Pulse fdsdsuxd91 % 95-100September 2024 11:02amBP Pxerpfqz68 mm[Hg]100-140September 2024 11:02amBP Eubryawge56 mm[Hg]60-100September 2024 11:02amInhaled oxygen flow rate3 L/minSept2024 11:79txEhpjvn66 [in_i]August 22, 2025 9:70bjBrhhun55.54 kgAugust 22, 2025 9:03amBody Mbucrgznaxg68.3 [degF] 97.6-99.0August 22, 2025 9:03amHeart Rate84 /yax08-232Vflmpjl 9th, 2025 9:03am Respiratory rate20 /eds78-52XpnehusAugust 22, 2025 9:03amOxygen saturation by Pulse ivpvyaoo54 %95-100August 22, 2025 9:03amBP Esxfjqwe41 mm[Hg]100-140Oct2024 9:03amBP Pyxagbksj70 mm[Hg]60-100August 22, 2025 9:03amBMI (Body Mass Index)26.7 kg/k6YdjbxrhAugust 22, 2025 9:03amInhaled oxygen flow rate3 L/min August 22, 2025 9:34rsQfbitg13 [in_i]September 12, 2025 1:29pmBody Temperature 98.1 [degF]97.6-99.0September 12, 2025 1:29pmHeart Rate69 /rba36-892Xonracs 2024 1:29pmRespiratory rate18 /vot65-11Ojggjmn 2024 1:29pmOxygen saturation by Pulse rbdhbvih87 %95-100October 2024 1:29pmBP Zelwylgv512 mm[Hg]100-140October 2024 1:29pmBP Faytdhrhh55 mm[Hg]60-100October 2024 1:29pm Advance Directives Advance Directive Response Recorded Date/ Time Advance Directives No June 25, 2024 8:07am Insurance Providers Guarantor James Velazquez Address [address] [address] Info.Home Phone: Coverage Status Update:2024 Payer Group Member ID Coverage Type Subscriber Relationship to Subscriber Effective Date Expiration Date Medicaid [id number] Hall , M Id: [id number] [address] [address] Home Phone: [facility]the[facility]Blue Dual Adv Id: [id number] Hall , M Id: [id number] [address] [address] Home Phone: Self Encounters Encounter Location(s) Arrival/Admit Date Discharge/Departure Date Discharge/Departure Disposition Provider(s) Departed Physician/ Provider Office Visit -[facility] July 31, 2025 10:36am July 31, 2025 11:42am Discharged to home care or self care (routine discharge) La Pack NP-C Non-patient / Non-visit -[facility] August 12, 2025 1:07pm La Pack NP-CDeparted Physician/Provider Office Visit-[facility] 2024 8:52amAugust 22, 2025 9:53amDischarged to home care or self care (routine discharge)La Pack NP-CNon-patient / Mcp-nuubx-[employer] [facility] [employer] 2024 2:05pmLa Pack NP-CDeparted Physician/Provider Office Visit-[facility] 2024 1:01pmOctober 2024 1:56pmDischarged to home care or self care (routine discharge)La Pack NP-C Recent Diagnosis Onset Date Admit Date Edema of both lower extremities Unknown July 31, 2025 10:36am Elevated TSH Unknown July 31, 2025 10:36am Generalized anxiety disorder Unknown Julber 2024 10:36am Iron deficiency anemia due t o chronic blood loss Unknown July 31, 2025 10:36am Recurrent major depressive d isorder, in full remission Unknown July 31, 2025 10:36am Cigarette nicotine dependenc e without complication Unknown August 22, 2025 8:52am COPD (chronic obstructive pulmonary disease) Unk nown August 22, 2025 8:52am Edema of both lower extremities Unknown August 22, 2025 8:52am Iron deficiency anemia due t o chronic blood loss Unknown August 22, 2025 8:52am Open wound of both legs with complication Unknow n August 22, 2025 8:52am Primary hypertension Unknown August 8:52am Cigarette nicotine dependenc e without complication Unknown September 12, 2025 1:01pm Edema of both lower extremities Unknown September 12, 2025 1:01pm Iron deficiency anemia due t o chronic blood loss Unknown September 12, 2025 1:01pm Open wound of both legs with complication Unknow n September 12, 2025 1:01pm Primary hypertension Unknown August 1:01pm Assessments Diagnosis Onset Date Resolution Status Admit Date Edema of both lower extremities acuteSeptember 2024 10:36amElevated TSHacuteSeptember 2024 10:36am Generalized anxiety disorderacuteSeptember 2024 10:36amIron deficiency anemia due to chronic blood lossacuteSeptember 2024 10:36amRecurrent major depressive disorder, in full remissionacuteSeptember 2024 10:36am Cigarette nicotine dependence without complicationacuteOctober 2024 8:52am COPD (chronic obstructive pulmonary disease)acuteOctober 2024 8:52amEdema of both lower extremitiesacuteOctober 2024 8:52amIron deficiency anemia due to chronic blood lossacuteOctober 2024 8:52amOpen wound of both legs with complicationacuteOctober 2024 8:52amPrimary hypertensionacuteOctober 2024 8:52amCigarette nicotine dependence without complicationacuteOctober 2024 1:01pmEdema of both lower extremitiesacuteOctober 2024 1:01pmIron deficiency anemia due to chronic blood lossacuteOctober 2024 1:01pmOpen wound of both legs with complicationacuteOctober 2024 1:01pmPrimary hypertensionacuteOctober 2024 1:01pm Plan of Treatment Author La [facility] 2024 11:52amlast appt increased dose on sertarline and added [...] weeks ago 3.785, Free T4 WNL Author La [facility] 2024 10:56amat this point I did have dr pleitez come and evaluate and colaborate for POC we will stop lasix, start bumex 1mg will also check ECHO, venous and arterial work up and send to wound care also again encouraged to elevate legs above level of heart compression stockings difficult for pt to put on, we will continue with taiwo wraps check labs started smoking again, 2 cigs daily oxygen, inhalers, encouraged to quit smoking Please check blood pressure daily and record DASH diet Limit caffeine Take medication as directed Contact office if chest pain, pressures, dizziness, shortness of breath, swelling in the legs Recommend slow position changes if you develop dizziness with position changes current med: losartan refer to wound care TB labs ordered Author [facility] 6:59amat last appt stopped lasix, started bumex and ordered ECHO, venous and arterial work up and send to wound care also again encouraged to elevate legs above level of heart compression stockings difficult for pt to put on, we will continue with taiwo wraps it was suggested she have IV iron infusion, I did not receive the notification that she was willing to do so after discussion with pt possibly consider hematology first started smoking again, 2 cigs daily Please check blood pressure daily and record DASH diet Limit caffeine Take medication as directed Contact office if chest pain, pressures, dizziness, shortness of breath, swelling in the legs Recommend slow position changes if you develop dizziness with position changes current med: losartan saw wound care and has fu next week Future Tests Future scheduled test information is unavailable Pending Tests Test Name Ordered Date Scheduled Date ECH echo transthoracic August 22, 2025 9:52am Future Visits Future appointment information is unavailable Future Procedures Procedure Name Ordered Date Scheduled Date B-Type Natriuretic Peptide August 22, 2025 9:4 5am Future Medications Future medication information is unavailable Patient Instructions Patient instructions are unavailable
--- OUTSIDE RECORDS SUMMARY | 2025-09-17 13:20 | XMS_ITS | Data Portability ---
Author Organization [facility], [facility] Address [address] [place] [id number] Assessment No assessment recorded. Plan of Treatment Reminders Order DateSubmit DateProviderLast Modified ByOrganization DetailsLast Modified TimeDetailsAppointmentsNone recorded.LabNone recorded.ReferralNone recorded. ProceduresNone recorded.SurgeriesNone recorded.ImagingMRI, brain + brain stem, w/wo [id number]/[facility], [address] [place] [address], [place] [address], [address], Ph [phone] 10:41:36Medication OrdersNone recorded. Patient TargetsNo targets recorded. Patient InstructionsNo instructions recorded. Reason for Referral None Reported. Results Created Date Observation Date Name Description Value Unit Range Abnormal Flag Note LastModifiedBy Organization Detail LastModifiedTime 09/16/2021 09/16/2021 MRI, brain + brain stem, w/w o contrast No observation recorded.[id number] [place] [address] - Centralized Scheduling [address] [place], [address], 04/ 11:04:51 MRI, brain + brain stem, w/wo contrastNo observation recorded.[id number] [place] [address] - Centralized Scheduling [address] [place], [address], 04/ 11:04:50 MRI, brain, w/wo contrastNo observation recorded.INTERFACE [facility] [address] [facility] [address], [place], [address], 03/31/2022 12:32:2905/MRI iacs wo/W conNo observation recorded. [facility] [address] [address], [place], [address], 03/31/2022 12:32:3105/01/2021MRI, brain, w/wo contrastNo observation recorded.[facility] [address] [facility] [address], [place], [address], 03/31/2022 12:33:0006/MRI, brain + brain stem, w/wo contrastNo observation recorded.[address] [place], [address], 18 12:47:54 MRI, brain + brain stem, w/wo contrastNo observation recorded.[address] [place], [address], 09 12:47:54 Result Notes None recorded. Problems Name Problem SNOMED Code Status Onset Date Resolution Date Notes Provider Name and Address Organization Details Recorded Time Acoustic neuroma of right vestibular nerve 070161096441054 06 Active 08/20/2021 [place] [address], [address], [facility] Piktzmdlv71/07/2021 09:05:07Sensorineural hearing loss in right [id number]/07/2021[place] [address], [address], [facility]08/20/2021 09:05:08 Problem Notes None recorded. Procedures Surgical History Date Name Laterality Status Provider Name and Address Organization Details Recorded Time partial hysterectomycompletedJenea [facility]/18/[facility]21 11:17:41removal of acoustic neuromacompletedJenea [facility] Smcxmxafb93/05/2021 11:17:58 Imaging Results None recorded. Procedure Notes None recorded. Medical Equipment None Reported. Allergies No known drug allergies Medications Name Sig Start Date Stop Date Status Note LastModified by Organization Details LastModified Time vitamin d3 1000 ui TAKE 1 TABLET BY MOUTH EVERY DAY activeNot AvailableNot AvailableNot Availableddm vit d-3 1000 iu guru gfTAKE 1 TABLET BY MOUTH EVERY DAYactiveNot AvailableNot AvailableNot Available atorvastatin 40 mg tabletTAKE 1 TABLET BY MOUTH EVERY DAYactiveNot AvailableNot AvailableNot Availablemetformin 500 mg tabletTAKE 1 TABLET BY MOUTH EVERY DAY activeNot AvailableNot AvailableNot Availablespironolactone 25 mg- hydrochlorothiazide 25 mg tabletTAKE 1 TABLET BY MOUTH EVERY DAYactiveNot AvailableNot AvailableNot Availablemeloxicam 7.5 mg tabletTAKE 1 TABLET BY MOUTH EVERY DAYactiveNot AvailableNot AvailableNot AvailableOneTouch Ultra Test strips use to test BLOOD SUGAR DAILY and NEEDEDactiveNot AvailableNot AvailableNot Availablelisinopril 10 mg tabletTAKE 1 TABLET BY MOUTH TWICE DAILYactiveNot AvailableNot AvailableNot Availablelosartan 25 mg tabletTAKE 1 TABLET BY MOUTH TWICE DAILYactiveNot AvailableNot AvailableNot Availableomeprazole 20 mg capsule,delayed releaseTAKE 1 CAPSULE BY MOUTH EVERY DAYactiveNot AvailableNot AvailableNot Availablealbuterol sulfate HFA 90 mcg/actuation aerosol inhaler INHALE 2 PUFFS BY MOUTH EVERY 6 HOURS NEEDEDactiveNot AvailableNot Available Not Availablefluticasone propionate 50 mcg/actuation nasal spray,suspension imstil 1 (ONE) spray into each nostril EVERY DAYactiveNot AvailableNot Available Not Availablesertraline 50 mg tabletTAKE 1 TABLET BY MOUTH EVERY DAYactiveNot AvailableNot AvailableNot AvailableOyster Shell Calcium-Vitamin D3 500 mg-5 mcg (200 unit) tabletTAKE 1 TABLET BY MOUTH EVERY DAYactiveNot AvailableNot AvailableNot Availablecholecalciferol (vitamin D3) 25 mcg (1,000 unit) tablet TAKE 1 TABLET BY MOUTH EVERY DAYactiveNot AvailableNot AvailableNot Available Gavilax 17 gram/dose oral powderSCOOP 1 CAPFUL (17 GRAMS) INTO 8 OUNCES OF LIQUID. MIX, STIR & DRINK EVERY DAYactiveNot AvailableNot AvailableNot Available ferrous gluconate 324 mg (37.5 mg iron) tabletTAKE 1 TABLET BY MOUTH EVERY DAY activeNot AvailableNot AvailableNot AvailableOneTouch Delica Plus Lancet 30 gaugeuse to test BLOOD SUGAR DAILY and NEEDEDactiveNot AvailableNot Available Not Available Vitals Date Recorded Body height Body mass index (BMI) Body weight Provider Name and Address Organization Details Last Updated DateTime 03/02/2022 160.02 cm 26.6 kg/m2 21110.86 g Rajni Guerin [facility] 03/02/2022 13:49:27 Date Recorded Body height Body mass index (BMI) Body weight Heart rate Systolic And Diastolic Provider Name and Address Organization Details Last Updated DateTime 08/18/2021 160.02 cm 26.6 kg/m2 09435.86 g 88 /min 114/74 mm[Hg] Rajni Guerin [facility] 08/18/2021 11:22:22 Social History None recorded. Functional Status Question Answer Note LastModified by Organization D etails LastModified Time What is your level of alcohol consumption? None [id number] not ejyifxzhs70/05/2021 Mental Status None recorded. Family History Relationship Description Onset Age of this Age Resolved Age Notes LastModified by Organization Details LastModified Time Mother Family history of malignant neop lasm [id number] yhazhnqcr73/05/2021 11:16:44FatherDiabetes gojsrficsknjpock08Kty outlceiyn75/05/2021 11:16:52 Medical History Condition Response Hypertension (High Blood Pressure) Y Hyperlipidemia (High Cholesterol) Y Diabetes Y Asthma Y Gynecological HistoryNo gynecological history recorded. Obstetrics History GPAL:G 0 P 0 0 0 0 Past Encounters Encounter ID Performer Location Encounter Start Date Encounter Closed Date Diagnosis/Indication Diagnosis SNOMED-CT Code Diagnosis ICD10 Code Diagnosis IMO Codes Diagnosis Note [id number] ALVIN ORELLANA MD [facility] [address] [place] [address] 08/18/2021 11:05:32 08/18/2021 11:52:37 Acoustic neuroma of right vestibular nerve 57230482502871215 D33.3 History of resection in the past the case [facility]. I recommend an MRI scan to recheck any tumor remnant. She will have this done in 6 months and then return to see me.Sensorineural hearing loss in right [id number] Right-sided hearing loss. She may benefit from cross hearing aids. She will see her local salvage laborer for hearing test as well as a cross [id number] [facility] [address] [place] [address] 03/02/2022 13:42:0603/02/2022 14:04:24Acoustic neuroma of right vestibular nerve 30773311167882556V91.3 History of resection in the past the [facility]. I recommend an MRI scan to recheck any tumor remnant. She will have this done in 6 months and then return to see me. She will mail me the MRI scan to review. We will then compared to previous and the next MRI scan. Given her vestibular issues I recommend therapy arrange for thatSensorineural hearing loss in right [id number] Right-sided hearing loss. She may benefit from cross hearing aids. She will see her local salvage laborer for hearing test as well as a cross simulation Health Concerns Section Related Observation LastModified by Organization Detai ls LastModified Time None Recorded Concern Status LastModified by Organization Details LastModified Time None Recorded Advance Directives Directive None Recorded Payers Insurance Date Sequence Insurance Name Policy Number Policy Cohen Covered Member ID Cohen Member ID Guarantor Name 08/14/2021 1 [id number] Zuleyka Moorcroft [id number] Zuleyka [id number] - MEDIBLUE (MEDICARE REPLACEMENT/ADVANTAGE - HMO) [id number] [facility] [id number] [place] Notes Date Note Type Note Provider Name and Address Orga nization Details Recorded Time 08/18/2021 text/html Patient is seen today for evaluation of her right-sided hearing. She had an acoustic neuroma that was resected at [facility] several years ago. They noted that only a small remnant was left. She has been following up with repeat MRI scans. She wants to know if she can stay closer to home and follow-up here. She has an asymmetric hearing loss. Balance is stable. Patient [place] [address] [facility] [address], [place], [address], [facility] Ndxyrrsjl62/08/2021 22:10:26003/02/2022text/html Patient is seen today for evaluation of her right-sided hearing. She had an acoustic neuroma that was resected at [facility] several years ago. They noted that only a small remnant was left. She has been following up with repeat MRI scans. She wants to know if she can stay closer to home and follow-up here. She has an asymmetric hearing loss. Balance is stable. Patient function is intact. Today: She has had no new issues. No dizziness or imbalance. Occasional headaches. No double vision. Her hearing is quite poor in the right ear. She has some imbalance instability issues at times apparently. She did have a repeat MRI scan but forgot to [place] [address] [facility] [address], [place], [address], [facility] Qlonyzagc13/22/2022 14:19:38 OBGyn Episode No OBEpisode recorded.
--- OUTSIDE RECORDS SUMMARY | 2025-09-17 13:22 | XMS_ITS | CCD ---
Author Organization [facility] CliniSyin Care Team Providers Care Test Tech Name Role Phone CHALO, DR GIANNA PACHECO [...] Care Physician Windnagel, Zamzam Admitting Unavailable Windnagel, Zamazm Referring Unavailable Windnagel, Zamzam Attending Unavailable Windnagel, Zamzam Referring Unavailable Windnagel, Zamzam Attending Unavailable Windnagel, Zamzam Admitting Unavailable Shaikh Sánchez MD Unavailable Windnagel HOST/HOSTESS, Zamzam C Unavailable Shaikh Sánchez MD Primary Care Provider Kirstin Carreon LPN Unavailable Unavailable Ian Soares MD Primary Care Provider Daniel Cardoso NP Unavailable [phone] Gustavo Romero LPN Unavailable Unavailable Windnagel HOST/HOSTESS, Zamzam C Unavailable Arturo Chanel MA Unavailable Unavailable Walker HOST/HOSTESS-CDaniel Primary Care Provid er Ramos MD, Mohamad Admit Provider Kayla ANGULO, Daniel Attending Provider Sara ANGULO, Basekassandra Other Provider Hernandez ANGULO, Suzette Other Provider Ryan Arshad MD Other Provider Turjimenez FRUIT AND VEGETABLE INSPECTOR, Ilana Other Provider Hubert Mcguire DO Other Provider Beni ANGULO, Dave Hidalgo Other Provider [phone] PROVIDER, UNKNOWN Attending Unavailable PROVIDER, UNKNOWN Admitting Unavailable Chalo ANGULO, Gianna Mir Primary Care Provider Unava ilable Liam HOST/HOSTESS, Zamzam C Unavailable Walker HOST/HOSTESS, Daniel Unavailable Ramone HOST/HOSTESS, La Unavailable Arturo Chanel MA Unavailable IAN SOARES Attending Unavailable AICHHOLZ, LA Attending Unavailable AICHHOLZ, LA Attending Unavailable AICHFARIBA, LA Attending Unavailable DANIEL CARDOSO Attending Unavailrocky e Daniel Cardoso Primary Care Unavaila ble Hernandez, Suzette Consulting Unavailable Ramos, Mohamad Admitting Unavailable Daniel Garza Attending Unavailable Jeancarlos, Ryan Consulting Unavailable Kelly, Ilana Consulting Unavailable Hubert Mcguire Jr Consulting Unavailabl e Dave Bazan Consulting Unavaila ble Ruiz, Basem Consulting Unavailable Aichholz HOST/HOSTESS-C, La J Primary Care Provider Ramone HOST/HOSTESS-C, La J Attending Provider Gonzalo ANGULO, Parada Primary Care Provider Shaikh Sánchez MD Unavailable Liam GARZA, Zamzam C Unavailable Gonzalo ANGULO, Primary Care Provider Grupo CLERK MANAGER, Funmilayo Unavailable Heather BAKERN, Ardana Unavailable Unavailable Lauri RUIZ, Kirstin Unavailable Prasanth ANGULO, Ian Primary Care Provider Walker HOST/HOSTESS, Daniel Unavailable [phone] Darío MORALES, Arturo Unavailable Ramone HOST/HOSTESS, La Unavailable Medications Current Medications MedicationDrug Class(es)DatesSig (Normalized)Sig (Original)Abrysvo 120 MCG/0.5ML reconstituted solution (8 sources)Start: 92-64-5203Iwnavub 120 MCG/0.5ML reconstituted solution 12/21/2024 Activeacetaminophen 500 mg oral capsule (4 sources)Start: 08-71-2196kxgz 1 capsule by mouth every six hours as needed albuterol 0.83 mg/ml inhalation solution (20 sources)beta2-Adrenergic AgonistStart: 07-22-2025 End: 41-74-6418oarj 1 puff(s) by inhalation four times daily as needed for wheezingStart: 07-18-2025 End: 95-88-0594hkjf 2.5 mg by inhalation every six hoursAlbuterol Sulfate 2.5 mg /3 mL (0.083 %) solution for nebulization Discontinued 2.5 MG INHALATION Every 6 hours 1080 90 0 July 18, 2025 11:20am August 01, 2025 8:50pm Chronic obstructive pulmonary disease Chronic obstructive pulmonary disease, unspecified Start: 07-18-2025 End: 35-53-8772zwdi 1 puff(s) by inhalation every four hoursAlbuterol Sulfate 90 mcg/actuation HFA aerosol inhaler Discontinued 2 PUFF INHALATION Every 4 hours July 18, 2025 12:00am August 01, 2025 8:49pmStart: 02-12-2025 End: 22-44-6890ojgkseiwg (2.5 MG/3ML) 0.083% nebulizer solution Indications: Chronic obstructive pulmonary disease, unspecified COPD type (HCC) Take 3 mL (2.5 mg) by nebulization every 6 (six) hours if needed for wheezing 75 mL 1 06/09/2025 ActiveStart: 12-10-2024 End: 89-14-0325Bcerngtjk Sulfate 90 mcg/actuation HFA aerosol inhaler Discontinued INHALATION December 10, 2024 1:00am July 22, 2025 7:14pm Start: 06-21-2024 End: 77-73-7022jzyx 2 puff(s) by inhalation every four hours for wheezing albuterol HFA 90 mcg/act inhaler Indications: Chronic obstructive pulmonary disease, unspecified COPD type (HCC) Inhale 2 puffs every 4 (four) hours if needed for wheezing 18 g 3 02/25/2025 Activealbuterol (2.5 MG/3ML) 0.083% nebulizer solution Take 2.5 mg by nebulization every 6 (six) hours ifneeded for wheezing Activealendronic acid 70 mg oral tablet (4 sources)Bisphosphonatetake 1 tablet by mouth in the morningalendronate (FOSAMAX) 70 mg tablet Take 70 mg by mouth every 7 days. In a.m. with water on empty stomach, nothing else by mouth and remain upright for 30min Active amoxicillin 875 mg / clavulanate 125 mg oral tablet (11 sources)Penicillin-class AntibacterialStart: 01-23-2025 End: 62-77-9052zpte 1 tablet by mouth in the morningamoxicillin-clavulanate (Augmentin) 875-125 MG tablet Indications: COPD exacerbation (CMS/HCC) Take1 tablet (875 mg) by mouth in the morning and 1 tablet (875 mg) before bedtime. Do all this for 10 days. Take with food. 20 tablet 01/23/2025 02/06/2025 Discontinued (Therapy completed)Start: 12-14-2024 End: 29-98-7187rinj 1 tablet by mouth twice dailyAmoxicillin-Pot Clavulanate (Augmentin) 500-125 mg tablet Discontinued 1 TAB PO Twice daily 6 3 0 December 14, 2024 1:00am January 04, 2025 10:14amStart: 09-20-2024 End: 72-25-5583yxeh 1 tablet by mouth in the morningamoxicillin-clavulanate (Augmentin) 875-125 MG tablet Indications: Non-recurrent acute serous otitis media of left ear Take 1 tablet (875 mg) by mouth in the morning and 1 tablet (875 mg) before bedtime. Do all this for 10 days. 20 tablet 09/20/2024 09/30/2024 Activebumetanide 1 mg oral tablet (2 sources)Loop DiureticStart: 62-12-7638hnfq 1 tablet by mouth once daily busPIRone hydrochloride 7.5 mg oral tablet (10 sources)Start: 07-31-2025 End: 45-99-7383anbi 1 tablet by mouth twice dailyStart: 06-26-2025 End: 57-55-6157less 1 tablet by mouth twice dailyBuspirone 5 mg tablet Discontinued 5 MG PO Twice daily July 18, 2025 12:00am July 31, 11:35amcalcium carbonate 1250 mg / cholecalciferol 200 unt oral tablet (4 sources)Vitamin Dtake 1 tablet by mouth twice daily at mealtimecalcium carbonate-vitamin D3 (CALCIUM 500 + D) 500 mg(1,250mg) -200 units per tablet Take 1 tablet by mouth 2 (two) times a day with meals. Activecephalexin 500 mg oral capsule (2 sources)Cephalosporin AntibacterialStart: 06-26-2025 End: 98-54-3677celc 1 capsule by mouth in the morningcephalexin (Keflex) 500 MG capsule Indications: Cellulitis of left lower extremity Take 1 capsule (500 mg) by mouth in the morning and 1 capsule (500 mg) before bedtime. Do all this for 7 days. 14 capsule 06/26/2025 07/03/2025 Activecholecalciferol 0.05 mg oral tablet (20 sources)Vitamin DStart: 06-21-2024 End: 15-83-9456ogsf 1 tablet by mouth once dailycholecalciferol (Vitamin D-3) 50 MCG (2000 UT) tablet Indications: Vitamin D deficiency Take 1 tablet (50 mcg) by mouth Daily 100 tablet 06/05/2025 09/13/2025 Activetake 1 tablet by mouth once dailycholecalciferol, vitamin D3, (VITAMIN D3) 1,000 units tablet Take 1,000 Units by mouth daily. ActiveDOCOSAHEXANOIC ACID/EPA (FISH OIL ORAL) (4 sources)take 1000 mg by mouth once dailyDOCOSAHEXANOIC ACID/EPA (FISH OIL ORAL) Take 1,000 mg by mouth daily. Activedocusate sodium 100 mg oral capsule (4 sources)take 1 capsule by mouth twice dailydocusate sodium (COLACE) 100 mg capsule Take 100 mg by mouth 2 (two) times a day. Activefamotidine 20 mg oral tablet (4 sources)Histamine-2 Receptor Antagonisttake 1 tablet by mouth twice daily famotidine (PEPCID) 20 mg tablet Take 20 mg by mouth 2 (two) times a day. Active ferrous gluconate 324 mg oral tablet (1 source)Start: 04-30-2024 End: 11-38-2836bwis 1 tablet by mouth once dailyferrous gluconate (Fergon) 324 (38 Fe) MG tablet Indications: Iron deficiency TAKE 1 TABLET BY MOUTH DAILY 100 tablet 04/30/2024 07/07/2024 Discontinued (Therapy completed)ferrous sulfate 325 mg delayed release oral tablet (20 sources)Start: 07-07-2024 End: 21-11-1037qxaz 1 tablet by mouth in the morningferrous sulfate (Fe Tabs) 325 (65 Fe) MG EC tablet Indications: Iron deficiency anemia due to chronic blood loss Take 1 tablet (325 mg) by mouth in the morning and 1 tablet (325 mg) in the evening. Take with meals. Do not crush, chew, or split.. 180 tablet 02/20/2025 05/21/2025 Activeferrous sulfate (IRON ORAL) Take by mouth. Active fexofenadine hydrochloride 180 mg oral tablet (4 sources)Histamine-1 Receptor Antagonisttake 1 tablet by mouth once daily fexofenadine (NADIRA) 180 mg tablet Take 180 mg by mouth daily. Active fluticasone propionate 0.05 mg/actuat metered dose nasal spray (4 sources)Corticosteroidtake 1 spray(s) nasal route once dailyfluticasone (FLONASE) 50 mcg/actuation nasal spray Administer 1 spray into each nostril daily. WnjngfDzajcakvtxf-Izgmumndk-Opglrr (Trelegy Ellipta) 200-62.5-25 MCG/ACT aerosol powder (20 sources)Start: 05-06-2025 End: 72-11-9285Zrnhwxoulfq-Umeclidin-Vilant (Trelegy Ellipta) 200-62.5-25 MCG/ACT aerosol powder Indications: Asthma with COPD (chronic obstructive pulmonary disease) ([facility]) Inhale 1 Inhalation Daily 3 each 1 05/06/2025 08/04/2025 ActiveStart: 02-25-2025 End: 71-73-7326Xuzthckezga-Umeclidin-Vilant (Trelegy Ellipta) 200-62.5-25 MCG/ACT aerosol powder Indications: Asthma with COPD (chronic obstructive pulmonary disease) ([facility]) Inhale 1 Inhalation Daily 3 each 1 02/25/2025 05/06/2025 Discontinued (Reorder)Start: 02-25-2025 End: 12-13-8660Xlnxrfewmzv-Umeclidin-Vilant (Trelegy Ellipta) 200-62.5-25 MCG/ACT aerosol powder Indications: Asthma with COPD (chronic obstructive pulmonary disease) ([facility]) Inhale 1 Inhalation Daily 3 each 1 02/25/2025 05/26/2025 ActiveStart: 08-27-2024 End: 24-95-5902Zvgbuwxfjin-Umeclidin-Vilant (Trelegy Ellipta) 200-62.5-25 MCG/ACT aerosol powder Indications: Asthma with COPD (chronic obstructive pulmonary disease) ([facility]) Inhale 1 Inhalation Daily 3 each 1 08/27/2024 02/25/2025 Discontinued (Reorder)Start: 68-23-4024Xyyafrzoeht-Umeclidin-Vilant (Trelegy Ellipta) 200-62.5-25 MCG/ACT aerosol powder Indications: Asthma with COPD (chronic obstructive pulmonary disease) ([facility]) Inhale 1 Inhalation Daily 3 each 1 08/27/2024 ActiveStart: 08-27-2024 End: 63-96-5733Rmaxvdjzwlj-Umeclidin-Vilant (Trelegy Ellipta) 200-62.5-25 MCG/ACT aerosol powder Indications: Asthma with COPD (chronic obstructive pulmonary disease) ([facility]) Inhale 1 Inhalation Daily 3 each 1 08/27/2024 11/25/2024 ActiveStart: 06-11-2024 End: 51-03-9830Ncljvlkddny-Umeclidin-Vilant (Trelegy Ellipta) 200-62.5-25 MCG/ACT aerosol powder Indications: Asthma with COPD (chronic obstructive pulmonary disease) ([facility]) Inhale 1 Inhalation Daily 3 each 1 06/11/2024 08/27/2024 Discontinued (Reorder)Start: 06-11-2024 End: 19-39-0987Ysojckmwusl-Umeclidin-Vilant (Trelegy Ellipta) 200-62.5-25 MCG/ACT aerosol powder Indications: Asthma with COPD (chronic obstructive pulmonary disease) ([facility]) Inhale 1 Inhalation Daily 3 each 1 06/11/2024 09/09/2024 WwtvzeZzvuvhwapom-Ytqzzjjxy-Rfxumfii (12 sources)Start: 86-10-7158Zxise: 79-82-2992Xwtxhsnqjgw-Umeclidin-Vilanter (Trelegy Ellipta) 200-62.5-25 mcg blister with device Active 1 INH INHALATION Daily 180 July 18, 2025 11:18am Complies with drug therapyStart: 01-04-2025 End: 11-99-4143Tzhwxzmkrqf-Umeclidin-Vilanter (Trelegy Ellipta) 200-62.5-25 mcg blister with device Discontinued INHALATION Twice daily January 04, 2025 10:12am July 18, 2025 11:20amStart: 01-04-2025 Vllfmbevrnz-Qtjdbvbdi-Hvutrekn (Trelegy Ellipta) 200-62.5-25 mcg blister with device Active INHALATION Twice daily January 04, 2025 9:12amStart: 12-10-2024 End: 61-11-9713Mddwrbtcxkg-Umeclidin-Vilanter (Trelegy Ellipta) 200-62.5-25 mcg blister with device Discontinued INHALATION December 10, 2024 1:00am January 04, 2025 10:14amStart: 12-10-2024 End: 75-31-1454Oxjjcslpngh-Umeclidin-Vilanter (Trelegy Ellipta) 200-62.5-25 mcg blister with device Discontinued INHALATION December 10, 2024 12:00am January 04, 2025 9:14amStart: 52-40-6585Msijwfdhtmv-Umeclidin-Vilanter (Trelegy Ellipta) 200-62.5-25 mcg blister with device Active INHALATION December 10, 2024 12:00amhydroCHLOROthiazide 12.5 mg / losartan potassium 50 mg oral tablet (13 sources)Thiazide Diuretic, Angiotensin 2 Receptor BlockerStart: 01-26-2024 End: 51-06-6474gjij 1 tablet by mouth once dailylosartan-hydroCHLOROthiazide (Hyzaar) 50-12.5 MG tablet Indications: Primary hypertension (CMS/HCC)Take 1 tablet by mouth Daily 30 tablet 11 01/26/2024 09/20/2024 Discontinued (Dose adjustment)Lactate (4 sources)ammonium lactate 12-12 % kit Apply topically. Activelisinopril 10 mg oral tablet (4 sources)Angiotensin Converting Enzyme Inhibitortake 1 tablet by mouth twice dailylisinopril (PRINIVIL,ZESTRIL) 10 mg tablet Take 10 mg by mouth 2 (two) times a day. Activemeloxicam 7.5 mg oral tablet (20 sources)Nonsteroidal Anti-inflammatory DrugStart: 12-10-2024 End: 95-88-2955ukym 1 tablet by mouth once dailyStart: 02-28-2019 End: 39-75-0847aalr 1 tablet by mouth once dailymeloxicam (MOBIC) 7.5 mg tablet Take 7.5 mg by mouth daily. 5 02/28/2019 Activemultivitamin capsule (4 sources)take 1 capsule by mouth once dailymultivitamin capsule Take 1 capsule by mouth daily. Activeondansetron 4 mg oral tablet (4 sources)Serotonin-3 Receptor AntagonistStart: 45-34-3231igop 1 tablet by mouth every six hours as neededPEG 3350 (Glycolax, Miralax) 4 gram packet (2 sources)PEG 3350 (Glycolax, Miralax) 4 gram packet 17 g in the morning. Activepolyethylene glycol 3350 07342 mg powder for oral solution (4 sources)Osmotic Laxativepolyethylene glycol (GLYCOLAX) 17 gram packet Take 17 g by mouth daily. Activesertraline 50 mg oral tablet (20 sources)Serotonin Reuptake InhibitorStart: 16-45-3147vmqu 2 tablets by mouth once dailyStart: 06-26-2025 End: 30-22-2388ufbh 1 tablet by mouth once dailysertraline (Zoloft) 100 MG tablet Indications: Depression, unspecified , Generalized anxiety disorder Take 1 tablet (100 mg) by mouth Daily 100 tablet 06/26/2025 10/04/2025 ActiveStart: 04-30-2024 End: 41-88-2365yvfq 1 tablet by mouth once dailySertraline 50 mg tablet Discontinued 50 MG PO Daily January 04, 2025 10:14am July 18, 2025 10:56amspironolactone 25 mg oral tablet (4 sources)Aldosterone Antagonisttake 1 tablet by mouth once dailyspironolactone (ALDACTONE) 25 mg tablet Take 1 tablet by mouth daily. Active Completed/Discontinued Medications MedicationDrug Class(es)DatesSig (Normalized)Sig (Original)atorvastatin 40 mg oral tablet (20 sources)HMG-CoA Reductase InhibitorStart: 01-09-2018 End: 68-49-3426Jdozycueabim 40 mg tablet Discontinued MG December 10, 2024 1:00am January 04, 2025 10:14amfurosemide 40 mg oral tablet (9 sources)Loop DiureticStart: 07-31-2025 End: 35-84-1804dqoi 1 tablet by mouth once dailyFurosemide 40 mg tablet Discontinued 40 MG PO Daily 30 July 31, 2025 12:00am August 22, 2025 9:44am Edema of both lower extremities Localized edemaStart: 06-26-2025 End: 23-78-0027qheb 1 tablet by mouth once dailyFurosemide 20 mg tablet Discontinued 20 MG PO Daily July 18, 2025 12:00am July 31, 2025 11:35amLORazepam 0.5 mg oral tablet (20 sources)BenzodiazepineStart: 07-28-2025 End: 11-54-9938unze 1 tablet by mouth once daily at bedtime as neededLorazepam (Ativan) 0.5 mg tablet Discontinued 0.5 MG PO Daily at bedtime as needed July 28, 2025 12:00am August 22, 2025 9:27amStart: 01-04-2025 End: 33-30-7565bnbn 1 tablet by mouth three times daily as neededLorazepam 0.5 mg tablet Discontinued 0.5 MG PO Three times daily as needed January 04, 2025 1:00am July 28, 2025 8:43pm End: 10-95-3668qljb 1 tablet by mouth every six hours as needed for anxiety LORazepam (Ativan) 0.5 MG tablet Take 0.5 mg by mouth every 6 (six) hours if needed for anxiety 02/06/2025 Discontinued (Therapy completed)losartan potassium 50 mg oral tablet (20 sources)Angiotensin 2 Receptor BlockerStart: 09-20-2024 End: 24-96-2748dckf 1 tablet by mouth once dailyLosartan 50 mg tablet Discontinued 50 MG PO Daily January 04, 2025 10:12am August 06, 2025 2 :00pmmetFORMIN hydrochloride 500 mg oral tablet (20 sources)BiguanideStart: 04-30-2024 End: 48-18-0160Iicovljuv 500 mg tablet Discontinued MG December 10, 2024 1:00am January 04, 2025 10:14amtake 1 tablet by mouth twice daily at mealtime metFORMIN (GLUCOPHAGE) 500 mg tablet Take 500 mg by mouth 2 (two) times a day with meals. Activeomeprazole 20 mg delayed release oral capsule (20 sources)Proton Pump InhibitorStart: 01-30-2024 End: 26-71-2084Lsjfslzdre 20 mg capsule,delayed release(DR/EC) Discontinued MG December 10, 2024 1:00am January 04, 2025 10:14amoseltamivir 30 mg oral capsule (5 sources)Neuraminidase InhibitorStart: 12-14-2024 End: 80-49-1102lwfg 1 capsule by mouth twice dailyOseltamivir 30 mg Capsule Discontinued 30 MG PO Twice daily 4 2 0 December 14, 2024 1:00am January 04, 2025 10:14ampredniSONE 20 mg oral tablet (5 sources)Start: 12-14-2024 End: 99-43-8795gnqg 2 tablets by mouth once dailyPrednisone 20 mg Tablet Discontinued 40 MG PO Daily 4 2 0 December 14, 2024 1:00am January 04, 2025 10:14amRsv Vac, Pref A And Pref B(Pf) (3 sources)Start: 07-18-2025 End: 85-71-2630Hva Vac, Pref A And Pref B(Pf) (Abrysvo (Pf)) 120 mcg/0.5 mL recon soln Discontinued ML IM July 18, 2025 12:00am July 28, 2025 8:42pm Problems Active Problems Problem ClassificationProblemDateDocumented DateEpisodic/Chronic Administrative/social admission (8 sources)Other reduced mobility; Translations: [Impaired mobility and activities of daily living]Onset: 200108-00-4193GtlptuwbMpwdgtk disorders (20 sources)Anxiety; Translations: [Anxiety disorder, unspecified]Onset: 066070-76-2792VrnydjcLpiqxz; peripheral; and visceral artery aneurysms (4 sources)Aneurysm of other specified arteries; Translations: [ANEURYSM OTHER SPECIFIED ARTERIES]Onset: 12-27-8089JofifmvXadoquuuyv pneumonitis; food/vomitus (14 sources)Aspiration pneumonia; Translations: [Pneumonitis due to inhalation of food and vomit]Onset: 806078-17-8985XlalzxblTqzwwr (20 sources)Asthma-chronic obstructive pulmonary disease overlap syndrome; Translations: [Asthma with COPD (chronic obstructive pulmonary disease) ([facility])]Onset: 203358-36-9136AghyugpMfhbrxz obstructive pulmonary disease and bronchiectasis (20 sources)Chronic obstructive pulmonary disease, unspecified; Translations: [Acute exacerbation of chronic obstructive airways disease]Onset: 12-27-2018 71-30-3445MdzrtshUjkpppimoc and other anemia (20 sources)Iron 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; Translations: [Iron deficiency anemia secondary to blood loss (chronic)]Onset: ChronicDeficiency and other anemia (1 source)Anemia, unspecified; Translations: [ANEMIA UNSPECIFIED]Onset: 20-57-9665TjjdwwquTwzmadri mellitus with complications (2 sources)Polyneuropathy due to type 2 diabetes mellitus; Translations: [Type 2 diabetes mellitus with diabetic polyneuropathy]84-95-5808RbzrijjRramytmo mellitus without complication (20 sources)Type 2 diabetes mellitus without complications; Translations: [Type 2 diabetes mellitus without complication]Onset: 20-50-0880BzjdgyxMuxgmussc of lipid metabolism (20 sources)Hyperlipidemia; Translations: [Other hyperlipidemia]Onset: 477151-23-0305BzzhykyRrnccybdat disorders (2 sources)Gastroesophageal reflux disease without esophagitis; Translations: [Gastro-esophageal reflux disease without esophagitis]03-25-9680QoxyibhXozptqdae hypertension (20 sources)Essential hypertension; Translations: [Essential (primary) hypertension]Onset: 066902-92-9990KrepiogPcge disorders (20 sources)Recurrent major depression in full remission; Translations: [Major depressive disorder, recurrent, in full remission]Onset: ChronicMood disorders (20 sources)Mood disorders; Translations: [Depression, unspecified]Onset: 796216-75-4758Evswwxqazpw deficiencies (20 sources)Vitamin D deficiency; Translations: [Vitamin D deficiency, unspecified]Onset: 441817-29-8792RdlbjpeGcop wounds of extremities (4 sources)Open wound of lower limb; Translations: [Unspecified open wound, right lower leg, initial encounter]96-07-5686AuauqtqwSbrblwanzlnuso (15 sources)Osteoarthritis; Translations: [Unspecified osteoarthritis, unspecified site]Onset: 911282-51-4407RhgdchgRzqiw and unspecified benign neoplasm (4 sources)Benign neoplasm of cranial nerves; Translations: [BENIGN NEOPLASM OF CRANIAL NERVES]Onset: 22-36-6327XtffflsTtlro and unspecified benign neoplasm (20 sources)Acoustic neuroma of right vestibular nerve; Translations: [Benign neoplasm of cranial nerves]Onset: 548658-72-1849IiuclahMfytj and unspecified benign neoplasm (2 sources)Benign neoplasm of cranial nerve; Translations: [Benign neoplasm of cranial nerves]94-13-8526PigmyxwNkqeh and unspecified benign neoplasm (20 sources)Other benign neoplasm of skin of right ear and external auricular canal; Translations: [Benign neoplasm of ear and external auditory canal]Onset: 362606-14-1711YbjcvcimDdgdk circulatory disease (5 sources)Low blood pressure; Translations: [Hypotension, unspecified] 48-21-6355IxmmjkqkHjiix connective tissue disease (20 sources)Recurrent falls ; Translations: [Repeated falls]Onset: 02-23-2024 72-13-7765DlbtzqubWtwgz connective tissue disease (2 sources)Other bursitis of elbow, left elbow; Translations: [Other enthesopathy of elbow region]64-29-3540AtvckakaVrevi connective tissue disease (1 source)Bursitis of elbow; Translations: [Other bursitis of elbow, left elbow] 42-36-6464PbfglbcfIxbdn ear and sense organ disorders (20 sources)Sensorineural hearing loss in right ear; Translations: [Unspecified sensorineural hearing loss]Onset: 713085-66-7561QquxoxiWfemx gastrointestinal disorders (20 sources)Occult blood in stools; Translations: [Other fecal abnormalities] Onset: 998059-84-1787HyoonfvuPqonc nervous system disorders (20 sources)Spinal cord disease; Translations: [Disease of spinal cord, unspecified]Onset: 572275-38-9386FguxquoFjbni nervous system disorders (20 sources)Disorder of nervous system; Translations: [Demyelinating disease of central nervous system, unspecified]Onset: 704729-36-2539HcmfpwjGkgrt nervous system disorders (1 source)Ataxia, unspecified; Translations: [ATAXIA UNSPECIFIED]Onset: 18-42-6526KlrgzaefEqylc nervous system disorders (6 sources)Finding related to ability to move; Translations: [Other abnormalities of gait and mobility]Onset: 479097-08-3860HqogohniSpdoq nutritional; endocrine; and metabolic disorders (1 source)Abnormal weight loss; Translations: [ABNORMAL WEIGHT LOSS]Onset: 29-77-4686YujtendcSweei screening for suspected conditions (not mental disorders or infectious disease) (20 sources)Patient encounter status; Translations: [Encounter for screening mammogram for malignant neoplasm of breast]Onset: 862873-84-4324Vahqbchn Otitis media and related conditions (2 sources)Acute non-suppurative otitis media - serous; Translations: [Acute serous otitis media, left ear]19-02-9627FaswtdtqPcmbqvth codes; unclassified (5 sources)Tobacco user; Translations: [Tobacco use]95-29-6762LqivglytNkdunmmk codes; unclassified (7 sources)Bilateral lower leg edema; Translations: [Localized edema]Onset: 531324-39-2247MksoxpirUwyoeutf codes; unclassified (9 sources)Bilateral lower limb edema; Translations: [Localized edema]07-18-2025 EpisodicRespiratory failure; insufficiency; arrest (adult) (20 sources)Acute respiratory failure; Translations: [Acute respiratory failure with hypoxia]Onset: 909076-00-0027OghxnmikMlcq and subcutaneous tissue infections (10 sources)Cellulitis of left lower limb; Translations: [Cellulitis of left lower limb]Onset: 722925-77-8174ZclqrkeaDbycuntyw-fzlzkmz disorders (20 sources)Smoker; Translations: [Nicotine dependence, unspecified, uncomplicated]Onset: 11-21-2023 Resolved: [id number] disorders (17 sources)Acquired hypothyroidism; Translations: [Hypothyroidism, unspecified] Onset: 742129-91-6540YjkphxqGwkwfhyjbina (1 source)R60.0 - Localized edema,S81.801A - Unspecified open wound, right lower leg, initial encounter,S81.802A - Unspecified open wound, left lower leg, initial encounter Past or Other Problems Problem ClassificationProblemDateDocumented DateEpisodic/ChronicGastrointestinal hemorrhage (4 sources)Rectal hemorrhage; Translations: [Hemorrhage of anus and rectum] Onset: 222897-00-7793JtrdrvykPvrptrazc (20 sources)Influenza due to Influenza A virus; Translations: [Influenza due to other identified influenza virus with other respiratory manifestations]Onset: 12-09-2024 Resolved: 691319-37-8335ShhnhntwYaccolpajvz deficiencies (9 sources)Iron deficiency; Translations: [Iron deficiency]Onset: 06-13-2025 42-99-7590CgajecvyPohy wounds of head; neck; and trunk (20 sources)Scalp laceration; Translations: [Laceration without foreign body of scalp, sequela]Onset: 813635-91-8196StvkoorzBpkgp and unspecified benign neoplasm (20 sources)Acoustic neuroma; Translations: [Benign neoplasm of cranial nerves] Onset: 01-26-2024 Resolved: 684503-56-8411KiqvfzvDykmy circulatory disease (3 sources)Hypotension, unspecified; Translations: [Hypotension, unspecified] Onset: 706292-24-8270RmsanritBmqsidgd codes; unclassified (3 sources)Tobacco use; Translations: [Tobacco use disorder]Onset: 12-09-2024 61-64-2704DvzjidhaDtypgmcu codes; unclassified (1 source)Other specified health status; Translations: [Other specified health status]Onset: 85-77-6776RkyymtofOjzvtqfobumg (4 sources)Onset: Results Test NameValueInterpretationReference RangeFacilityBasophils Auto (Bld) [#/Vol] Ordered By: La Pack on 16-07-7111Akxmpyzna (Bld) [#/Vol]0.1 10 3/uL0.0-0.1 [facility] HospitalBasophils/100 WBC Auto (Bld)Ordered By: La Pack on 46-81-5602Wxzlspsga/100 WBC (Bld)0.5 %0.2-2.0[facility] HospitalEosinophils/100 WBC Auto (Bld)Ordered By: La Pack on 25-84-1942Jvuvhfapqzr/100 WBC (Bld)1.0 %0.9-7.0[facility] Erythrocyte distribution width Auto (RBC) [Ratio]Ordered By: La Pack on 93-78-9779Hbuqxpssfeo distribution width (RBC) [Ratio]16.5 %High11.0-15.0 [facility] HospitalGlobulin Calc (S) [Mass/Vol]Ordered By: La Pack on 57-18-0713Kymektlh (S) [Mass/Vol]4.3 g/dLOhiohealth Doctors HospitalGlomerular filtration rate (GFR) estimation in non- AmericanOrdered By: La Pack on 53-57-9458VSZ/1.73 sq M.predicted among non-blacks MDRD (S/P/Bld) [Vol rate/Area]mL/min/{1.73_m2}>=60 mL/min/1.73m 2FCincinnati VA Medical CenterHematocrit Auto (Bld) [Volume fraction]Ordered By: La Pack on 79-50-2055Leatlmbxpx (Bld) [Volume fraction]31.3 %Low36.0-48.0[facility] HospitalHemoglobin [Mass/volume] in BloodOrdered By: La Dalecarmenfariba on 46-27-2404Foqnghozvn (Bld) [Mass/Vol]9.6 g/dLLow12.0-16.0[facility] HospitalIron binding capacity [Mass/volume] in Serum or Plasma Ordered By: La Pack on 37-23-5242Skqk binding capacity [Mass/Vol]292.0 ug/dL250.0-450.0[facility] HospitalIron saturation [Mass Fraction] in Serum or PlasmaOrdered By: Laevan Pack on 38-81-8047Wplc saturation [Mass fraction]13.7 %[facility] HospitalLaboratory - Chemistry and Chemistry - challengeOrdered By: La Ramone on 28-93-7479Ulagukn [Mass/Vol] 3.4 g/dL3.4-5.0[facility] HospitalALP [Catalytic activity/Vol]119 U/PWrjl92-574WhkpylarbOhiohealth Doctors HospitalALT [Catalytic activity/Vol]33 U/L 14-59Ohio[facility] HospitalAST [Catalytic activity/Vol]14 U/QEfw56-43 [facility] HospitalBilirubin [Mass/Vol]0.3 mg/dL0.2-1.0[facility] HospitalCalcium [Mass/Vol]9.3 mg/dL8.5-10.1FCincinnati VA Medical CenterChloride [Moles/Vol]102 mmol/R12-150HrmnutialOhiohealth Doctors HospitalCO2 [Moles/Vol]38.6 mmol/LHigh21.0-32.0[facility] Creatinine [Mass/Vol]0.86 mg/dL0.55-1.02[facility] Ferritin [Mass/Vol]95.0 ng/mL8.0-252.0[facility] HospitalGFR/1.73 sq M.predicted MDRD (S/P/Bld) [Vol rate/Area]mL/min/{1.73_m2}>=60 mL/min/1.73m 2 [facility] HospitalGlucose [Mass/Vol]115 mg/yOHalu69-925MvriliycmOhiohealth Doctors HospitalIron [Mass/Vol]40.0 ug/dLLow50.0-170.0[facility] HospitalNatriuretic peptide B (Bld) [Mass/Vol]150.0 pg/mL<=900.0[facility] HospitalPotassium [Moles/Vol]4.4 mmol/L3.5-5.1FCincinnati VA Medical CenterPrealbumin [Mass/Vol]21.9 mg/dL20.9-45.5FCincinnati VA Medical CenterProtein [Mass/Vol]7.7 g/dL6.4-8.2FPremier Health Upper Valley Medical Centerodium [Moles/Vol]144 mmol/A689-645MesdbadqwOhiohealth Doctors HospitalTransferrin [Mass/Vol]231 mg/cX142-347ZalubqpxyOhiohealth Doctors HospitalComment on above: Performed at: [facility] [place] [id number] Director: Ever Pink PhD, Phone: [phone] nitrogen [Mass/Vol]28.0 mg/dLHigh7.0-18.0[facility] HospitalUrea nitrogen/Creatinine [Mass ratio]32.6 mg/mgOhiohealth Doctors HospitalLaboratory - Hematology and Cell countsOrdered By: La Pack on 28-07-7530Bqlmxvdm granulocytes/100 WBC (Bld)0.3 %0.0-0.5FCincinnati VA Medical CenterLeukocytes [#/volume] corrected for nucleated erythrocytes in Blood by Automated counOrdered By: La Pack on 52-55-2318NNV corrected for nucl RBC Auto (Bld) [#/Vol]9.2 10 3/uL 4.0-11.0[facility] HospitalLymphocytes Auto (Bld) [#/Vol]Ordered By: La Pack on 72-69-5468Ikwvvwmjumk (Bld) [#/Vol]0.9 10 3/uLLow1.2-3.8 [facility] HospitalLymphocytes/100 WBC Auto (Bld)Ordered By: La Pack on 63-27-5946Pdcuzrfzavn/100 WBC (Bld)9.6 %Low20.5-60.0[facility] Auto (RBC) [Entitic mass]Ordered By: La Pack on 45-70-0912CFT (RBC) [Entitic mass]27.8 pg26.7-34.0[facility] HospitalHC Auto (RBC) [Mass/Vol]Ordered By: La Pack on 37-35-0024KCQU (RBC) [Mass/Vol]30.7 g/dL29.9-35.2FCincinnati VA Medical CenterMCV Auto (RBC) [Entitic vol]Ordered By: La Pack on 99-15-5457ZDM (RBC) [Entitic vol]90.7 fL81.0-99.0[facility] HospitalMonocytes Auto (Bld) [#/Vol]Ordered By: La Pack on 04-48-9580Xpbrdrldx (Bld) [#/Vol]1.0 10 3/uL High0.3-0.8[facility] HospitalMonocytes/100 WBC Auto (Bld)Ordered By: La Pack on 39-79-0752Bclidiamh/100 WBC (Bld)10.3 %1.7-12.0[facility] HospitalNeutrophils Auto (Bld) [#/Vol]Ordered By: La Pack on 11-28-2504Yyxzjasqjbl (Bld) [#/Vol]7.2 10 3/uLHigh1.4-6.5FCincinnati VA Medical CenterNeutrophils/100 WBC Auto (Bld)Ordered By: La Pack on 43-54-3505Icpnnwvrzbo/100 WBC (Bld)78.3 %High43.0-75.0[facility] HospitalNo Panel InformationOrdered By: La Pack on 78-64-5350Flbhjscqdci # (Auto)0.1 10 3/uL0.0-0.7FCincinnati VA Medical CenterImmature Granulocyte # (Auto)0.03 10 3/uL0.00-0.03[facility] HospitalPlatelet mean volume Auto (Bld) [Entitic vol]Ordered By: La Pack on 81-29-6771Fvmrmbgz mean volume (Bld) [Entitic vol]9.5 fL9.5-13.5FCincinnati VA Medical Center Platelets Auto (Bld) [#/Vol]Ordered By: La Pack on 06-12-3386Vgsiheaui (Bld) [#/Vol]301 10 3/lW711-904CvltvyrviOhiohealth Doctors HospitalRBC Auto (Bld) [#/Vol]Ordered By: La Pack on 12-11-1640MIU (Bld) [#/Vol]3.45 10 6/uLLow 4.20-5.40Mary Rutan Hospitalerum or plasma albumin/globulin mass ratioOrdered By: La Pack on 07-06-5333Xvursft/Globulin [Mass ratio]0.8 {ratio}Mary Rutan Hospitalerum or plasma anion gap determination Ordered By: La Pack on 07-67-1271Edvji gap [Moles/Vol]7.8 mmol/LFCincinnati VA Medical CenterGlobulin Calc (S) [Mass/Vol]Ordered By: La Pack on 86-96-2071Kgitbecn (S) [Mass/Vol]3.9 g/dLOhiohealth Doctors Hospital Glomerular filtration rate (GFR) estimation in non- AmericanOrdered By: La Pack on 85-29-6866NDS/1.73 sq M.predicted among non-blacks MDRD (S/P/Bld) [Vol rate/Area]mL/min/{1.73_m2}>=60 mL/min/1.73m 2FCincinnati VA Medical CenterLaboratory - Chemistry and Chemistry - challengeOrdered By: La Pack on 06-48-0101Fobxund [Mass/Vol]3.6 g/dL3.4-5.0[facility] HospitalALP [Catalytic activity/Vol]111 U/L26-377KbqircsoyOhiohealth Doctors HospitalALT [Catalytic activity/Vol]29 U/Y81-31RibqydxbuOhiohealth Doctors HospitalAST [Catalytic activity/Vol]15 U/T99-28WkqtptarmOhiohealth Doctors Hospital Bilirubin [Mass/Vol]0.3 mg/dL0.2-1.0[facility] HospitalCalcium [Mass/Vol]9.1 mg/dL8.5-10.1FCincinnati VA Medical CenterChloride [Moles/Vol] 102 mmol/O88-265RxfienbwrOhiohealth Doctors HospitalCO2 [Moles/Vol]34.6 mmol/LHigh 21.0-32.0[facility] HospitalCreatinine [Mass/Vol]0.73 mg/dL 0.55-1.02[facility] HospitalFerritin [Mass/Vol]93.0 ng/mL8.0-252.0 [facility] HospitalGFR/1.73 sq M.predicted MDRD (S/P/Bld) [Vol rate/Area]mL/min/{1.73_m2}>=60 mL/min/1.73m 2FCincinnati VA Medical Center Glucose [Mass/Vol]107 mg/xSDicr44-989XydalgseeOhiohealth Doctors HospitalPotassium [Moles/Vol]4.2 mmol/L3.5-5.1FCincinnati VA Medical CenterProtein [Mass/Vol] 7.5 g/dL6.4-8.2FPremier Health Upper Valley Medical Centerodium [Moles/Vol]144 mmol/L 136-145Ohio[facility] Doctors HospitalUrea nitrogen [Mass/Vol]27.0 mg/dLHigh 7.0-18.0[facility] HospitalUrea nitrogen/Creatinine [Mass ratio] 37.0 mg/mgMary Rutan Hospitalerum or plasma albumin/globulin mass ratioOrdered By: La Pack on 38-05-8719Tjzwuca/Globulin [Mass ratio]0.9 {ratio}Mary Rutan Hospitalerum or plasma anion gap determination Ordered By: La Pack on 66-73-3222Alzck gap [Moles/Vol]11.6 mmol/LFCincinnati VA Medical CenterALL CBC WITH AUTO DIFFon 26-56-4164EPVSBVHSM ABSOLUTE AUTO0.1NOMS HealthcareBasophils/100 WBC (Bld)0.9 %0.2 - 2.0 %[facility] Eosinophils/100 WBC (Bld)1.3 %0.9 - 7.0 %[facility] SystemErythrocyte distribution width (RBC) [Ratio]15.4 %High11.0 - 15.0 %[facility] SystemHematocrit (Bld) [Volume fraction]39.8 %36.0 - 48.0 %[facility] SystemHemoglobin (Bld) [Mass/Vol]12 g/dL12.0 - 16.0 g/dLLake Regional Health SystemIMMATURE GRANULOCYTES ABS AUTO0.02NOMercy Hospital WashingtonImmature granulocytes/100 WBC (Bld)0.3 %0.0 - 0.5 %[facility] Interpretation and review of laboratory resultsAbnormalLake Regional Health System LYMPHOCYTES ABSOLUTE AUTO0.8LowLake Regional Health SystemLymphocytes/100 WBC (Bld)11.3 %Low 20.5 - 60.0 %[facility] HospitalH (RBC) [Entitic mass]27.1 pg26.7 - 34.0 pgJefferson Memorial HospitalHC (RBC) [Mass/Vol]30.2 g/dL29.9 - 35.2 g/dLJefferson Memorial HospitalV (RBC) [Entitic vol]89.8 fL81.0 - 99.0 fLLake Regional Health SystemMONOCYTES ABSOLUTE AUTO0.5NOMercy Hospital WashingtonMonocytes/100 WBC (Bld)7 %1.7 - 12.0 %[facility] SystemNEUTROPHILS ABSOLUTE AUTO5.5NOMercy Hospital WashingtonNeutrophils/100 WBC (Bld)79.2 %High43.0 - 75.0 % [facility] SystemPlatelet mean volume (Bld) [Entitic vol]8.9 fLLow9.5 - 13.5 fL [facility] EO #0.1NSSM [facility] DYZ002SNGWNortheast Missouri Rural Health Network RBC4.43 [facility] BSY3OKBDMercy Hospital WashingtonCLINISYNCNNortheast Missouri Rural Health Network THYROID STIM HORMONEon 46-13-7490PVJ Qn2.663 m[IU]/LNPhelps HealthALL THYROXINE (T4) FREEon 47-64-4830Oikm T4 [Mass/Vol]0.93 ng/dL0.76 - 1.46 ng/dLLake Regional Health SystemNo Panel Informationon 42-36-3274STGRCDBYKHHZN HealthcareNM ORLY PERF SPECT REST STRon 75-54-7608FpmFrench[place] [address] Nuclear Medicine Report Signed Patient: JULIAN MONTAÑO MR#: [id number] : 1955 Acct:[id number] Age/Sex: 69 / F ADM Date: 02/20/25 Loc: NM Attending Dr: Krissy Cortez M.D. Ordering Physician: Krissy Cortez M.D. Date of Service: 02/20/25 Procedure(s): NM orly perf SPECT rest str Accession Number(s): [id number] cc: aL Pack HOST/HOSTESS; Krissy Cortez M.D. Patient Name: JULIAN MONTAÑO MR#: [id number] : 1955 Exam Date: 02/20/2025 Ordering Doctor: [...] the study was pending per attending physician [facility]. For more details, please see separate cardiac [...] Signed By: 02/21/25 143 DD/ 30 TD/TT: Setup Technician:ABDOULadiologgeraldo, Radiologist, - 02/21/2025 [place] [address] Nuclear Medicine Report Signed Patient: JULIAN MONTAÑO MR#: [id number] : 1955 Acct:[id number] Age/Sex: 69 / F ADM Date: 02/20/25 Loc: NM Attending Dr: Krissy Cortez M.D. Ordering Physician: Krissy Cortez M.D. Date of Service: 02/20/25 Procedure(s): NM orly perf SPECT rest str Accession Number(s): [id number] cc: La Pack HOST/HOSTESS; Krissy Cortez M.D. Patient Name: JULIAN MONTAÑO MR#: [id number] : 1955 Exam Date: 02/20/2025 Ordering Doctor: [...] the study was pending per attending physician [facility]. For more details, please see separate cardiac [...] Vallecillo M.D. Signed By: 02/21/25 143 DD/ 1431 TD/TT: Setup Technician: [facility] SystemRadiology Study observation (narrative)[facility] PERF SPECT REST STROrdered By: Radiologist Radiology on 10-90-1679FABCLake Regional Health System Work Phone: aLL CBC WITH AUTO DIFFon 04-94-8650NVYMULWUL ABSOLUTE AUTO0.1NOMS [facility] HospitalBasophils/100 WBC (Bld)0.6 %0.2 - 2.0 %[facility] Eosinophils/100 WBC (Bld)1.5 %0.9 - 7.0 %[facility] SystemErythrocyte distribution width (RBC) [Ratio]15.9 %High11.0 - 15.0 %[facility] SystemHematocrit (Bld) [Volume fraction]36.1 %36.0 - 48.0 %[facility] SystemHemoglobin (Bld) [Mass/Vol] 11.6 g/dLLow12.0 - 16.0 g/dLSaint Mary's Health CenterMATURE GRANULOCYTES ABS AUTO0.04 HighMineral Area Regional Medical Centermature granulocytes/100 WBC (Bld)0.4 %0.0 - 0.5 %[facility] SystemInterpretation and review of laboratory resultsAbnormalLake [facility] Health System LYMPHOCYTES ABSOLUTE AUTO1.6NOMercy Hospital WashingtonLymphocytes/100 WBC (Bld)15.8 %Low 20.5 - 60.0 %[facility] HospitalH (RBC) [Entitic mass]28.7 pg26.7 - 34.0 pgJefferson Memorial HospitalHC (RBC) [Mass/Vol]32.1 g/dL29.9 - 35.2 g/dLNOMS HealthcareMCV (RBC) [Entitic vol]89.4 fL81.0 - 99.0 fLNOMS HealthcareMONOCYTES ABSOLUTE TYET1Ahhj NOMS HealthcareMonocytes/100 WBC (Bld)9.6 %1.7 - 12.0 %[facility] NEUTROPHILS ABSOLUTE AUTO7.4HighNOMS HealthcareNeutrophils/100 WBC (Bld)72.1 % 43.0 - 75.0 %NOMS HealthcarePlatelet mean volume (Bld) [Entitic vol]9.1 fLLow9.5 - 13.5 fLNOMS HealthcareTBH EO #0.2NOMS HealthcareTBH [id number] HealthcareTBH RBC4.04LowNOMS HealthcareTBH WBC10.2NOMS HealthcareCLINISYNCNOMS HealthcareMM TOMOSYNTHESIS SCREENING BIon 88-16-0735IviFrench[place] [address] Mammography Report Signed Patient: JULIAN MONTAÑO MR#: [id number] : 1955 Acct:[id number] Age/Sex: 69 / F ADM Date: 02/18/25 Loc: MAMMO Attending Dr: La Pack NP Ordering Physician: La Pack NP Results: Date of Service: 02/18/25 Follow Up: Procedure(s): MM tomosynthesis screening BI Accession Number(s): [id number] cc: La Pack NP Patient Name: JULIAN MONTAÑO MR#: [id number] : 1955 Exam Date: 02/18/2025 Ordering Doctor: [...] uterine cancer at age 53. LOCATION: [facility] BREAST COMPOSITION: The breasts are almost [...] Signed By: 02/18/25 1554 DD/ 1553 TD/TT: Setup Technician:TBHRadiology, Radiologist, MD - 02/18/2025 [place] [address] Mammography Report Signed Patient: JULIAN MONTAÑO MR#: [id number] : 1955 Acct:[id number] Age/Sex: 69 / F ADM Date: 02/18/25 Loc: MAMMO Attending Dr: La Pack NP Ordering Physician: La Pack NP Results: Date of Service: 02/18/25 Follow Up: Procedure(s): MM tomosynthesis screening BI Accession Number(s): [id number] cc: La Pack NP Patient Name: JULIAN MONTAÑO MR#: [id number] : 1955 Exam Date: 02/18/2025 Ordering Doctor: [...] uterine cancer at age 53. LOCATION: [facility] BREAST COMPOSITION: The breasts are almost [...] Signed By: 02/18/25 1554 DD/ 1553 TD/TT: Setup Technician: SONI HealthcareRadiology Study observation (narrative)[facility] TOMOSYNTHESIS SCREENING BIOrdered By: Radiologist Radiology on 32-99-0558VQGM [employer] Work Phone: alanine aminotransferase [Enzymatic activity/volume] in Serum or PlasmaOrdered By: Daniel Garza on 20-59-7662EVM [Catalytic activity/Vol]Alanine aminotransferase [Enzymatic activity/volume] in Serum or PlasmaHigh7-52[facility] Doctors HospitalAlbumin [Mass/volume] in Serum or Plasma by Bromocresol green (BCG) dye binding methoOrdered By: Daniel Garza on 00-35-7286Xwkgzqk BCG dye [Mass/Vol]Albumin [Mass/volume] in Serum or Plasma by Bromocresol green (BCG) dye binding metho3.5-5.7FCincinnati VA Medical CenterAlkaline phosphatase [Enzymatic activity/volume] in Serum or PlasmaOrdered By: Daniel Garza on 18-63-2628CKU [Catalytic activity/Vol]Alkaline phosphatase [Enzymatic activity/volume] in Serum or Gzdcvp96-400NpvzopbvpOhiohealth Doctors HospitalAspartate aminotransferase [Enzymatic activity/volume] in Serum or Plasma Ordered By: Daniel Garza on 23-53-4899QUW [Catalytic activity/Vol]Aspartate aminotransferase [Enzymatic activity/volume] in Serum or Wogzwd88-23OnqdfbsudOhiohealth Doctors HospitalBasophils Auto (Bld) [#/Vol]Ordered By: Daniel Garza on 75-72-6235Oxlmudzlw (Bld) [#/Vol]Automated basophil count0.0-0.2FCincinnati VA Medical CenterBasophils/100 WBC Auto (Bld)Ordered By: Daniel Garza on 39-37-3163Vjxvgmtvv/100 WBC (Bld)Automated basophil %.Ohio[facility] Doctors HospitalBilirubin.total [Mass/volume] in Serum or PlasmaOrdered By: Daniel Garza on 91-65-9386Dopzokcop [Mass/Vol]Bilirubin.total [Mass/volume] in Serum or Plasma0.3-1.0[facility] Doctors HospitalCalcium [Mass/volume] in Serum or PlasmaOrdered By: Daniel Garza on 70-28-8789Zovvjxz [Mass/Vol]Calcium [Mass/volume] in Serum or Plasma8.6-10.3FCincinnati VA Medical CenterCarbon dioxide, total [Moles/volume] in Serum or PlasmaOrdered By: Daniel Garza on 70-82-4030IH7 [Moles/Vol]Carbon dioxide, total [Moles/volume] in Serum or Plasma 21.0-31.0[facility] Doctors HospitalChloride [Moles/volume] in Serum or PlasmaOrdered By: Daniel Graza on 29-84-1243Skxoacua [Moles/Vol]Chloride [Moles/volume] in Serum or MycttgRmx28-188SqboezgpcOhiohealth Doctors Hospital Complete Blood Count Auto Diffon 20-62-3640Zxhkhfseo (Bld) [#/Vol]0.0 10*3/uL Normal0.0-0.2The [facility] Physician GroupComment on above:Result Comment: PERFORMED BY: [facility] [address] [place] [address] PATHOLOGIST SUPERVISOR BURLING AND JOINING MANDY ACUÑA M.D.Performed By: #### CMP, CBC ####[address] [place] [address] USABasophils/100 WBC (Bld)0.2 % Normal.The [facility] Physician GroupComment on above:Performed By: #### CMP, CBC ####[address] [place] [address] [place] Eosinophils (Bld) [#/Vol]0.0 10*3/uLNormal0.0-0.45The [facility] Comment on above:Performed By: #### CMP, CBC ####[place] [address] USAEosinophils/100 WBC (Bld)0.0 %Normal. The [facility] Physician GroupComment on above:Performed By: #### CMP, CBC ####[address] Erythrocyte distribution width (RBC) [Ratio]15.3 %Aywxng29.9-15.3The [facility] Physician GroupComment on above:Performed By: #### CMP, CBC ####[place] [address] USAHematocrit (Bld) [Volume fraction]40.4 %Ljeyle93.0-46.4The [facility] Physician GroupComment on above:Performed By: #### CMP, CBC ####[place] [address] USAHemoglobin (Bld) [Mass/Vol]13.4 g/pPPslhzq69.8-15.4 The [facility] Physician GroupComment on above:Performed By: #### CMP, CBC ####[place] [address] [place] Lymphocytes (Bld) [#/Vol]0.6 10*3/uLLow1.00-4.8The [facility] Comment on above:Performed By: #### CMP, CBC ####[place] [place] [address] USALymphocytes/100 WBC (Bld)7.0 %Normal. The [facility] Physician GroupComment on above:Performed By: #### CMP, CBC ####[place] [address] USAMCH (RBC) [Entitic mass]28.5 gvLnwmpr95.7-34.3The [facility] Physician GroupComment on above:Performed By: #### CMP, CBC ####[place] [address] USAMCV (RBC) [Entitic vol]85.6 uRFtlfhx32-020Nlz [facility] Physician GroupComment on above:Performed By: #### CMP, CBC ####[place] [address] USAMean Corpuscular HGB Conc33.3 g/hOLtdjxg40.0-35.0The [facility] Physician GroupComment on above:Performed By: #### CMP, CBC ####[place] [address] USAMonocytes (Bld) [#/Vol]0.7 10*3/uLNormal 0.0-0.8The [facility] Physician GroupComment on above:Performed By: #### CMP, CBC ####[place] [address] [place] Monocytes/100 WBC (Bld)8.2 %Normal.The [facility] Physician GroupComment on above:Performed By: #### CMP, CBC ####[place] [address] USANeutrophils (Bld) [#/Vol]7.2 10*3/uLNormal1.8-7.7The [facility] Physician GroupComment on above:Performed By: #### CMP, CBC ####[place] [address] [place] Neutrophils/100 WBC (Bld)84.6 %Normal.The [facility] Physician GroupComment on above:Performed By: #### CMP, CBC ####[place] [address] USANRBC%0.1 /100{WBC}Normal0-0.5The [facility] Physician GroupComment on above:Performed By: #### CMP, CBC ####[place] [address] USAPlatelet mean volume (Bld) [Entitic vol]7.4 fLNormal6.3-10.7The [facility] Physician GroupComment on above: Performed By: #### CMP, CBC ####[place] [address] USAPlatelets (Bld) [#/Vol]276 10*3/xUYdfram516-170Lig [facility] Physician GroupComment on above:Performed By: #### CMP, CBC ####[address] [address] USARBC (Bld) [#/Vol]4.72 10*6/uLNormal3.60-5.00The [facility] Physician GroupComment on above:Performed By: #### CMP, CBC ####[address] [address] USAWBC (Bld) [#/Vol]8.6 10*3/uLNormal3.8-11.6The [facility] Physician GroupComment on above:Performed By: #### CMP, CBC ####[address] [address] [facility] Comprehensive Metabolic Panelon 45-18-2527Uarextc [Mass/Vol]3.7 g/dLNormal 3.5-5.7The [facility] Physician GroupComment on above:Performed By: #### CMP, CBC ####[address] [address] Albumin/Globulin [Mass ratio]1.2 {ratio}NormalThe [facility] Physician [facility] Comment on above:Performed By: #### CMP, CBC ####[address] [address] USAALP [Catalytic activity/Vol]84 U/L Nbdvdw70-835Ocj [facility] Physician GroupComment on above:Performed By: #### CMP, CBC ####[address] [address] USAALT [Catalytic activity/Vol]55 U/LHigh7-52The [facility] Comment on above:Performed By: #### CMP, CBC ####[address] [address] USAAnion gap [Moles/Vol]12.7 mmol/LNormal 6.0-15.0The [facility] Physician GroupComment on above:Performed By: #### CMP, CBC ####[address] [address] USAAST [Catalytic activity/Vol]29 U/UFwkbcu29-48Voa [facility] Physician GroupComment on above:Performed By: #### CMP, CBC ####[address] [address] USABilirubin [Mass/Vol]0.6 mg/dLNormal0.3-1.0The [facility] Physician GroupComment on above:Performed By: #### CMP, CBC ####[address] [address] USACalcium [Mass/Vol]9.2 mg/dLNormal8.6-10.3The [facility] Physician GroupComment on above: Performed By: #### CMP, CBC ####[address] [address] USAChloride [Moles/Vol]93 mmol/VDsh57-460[facility] Physician GroupComment on above:Performed By: #### CMP, CBC ####[address] [address] USACO2 [Moles/Vol]29.4 mmol/UFzdggx47.0-31.0[facility] Physician GroupComment on above:Performed By: #### CMP, CBC ####[address] [address] USACreatinine [Mass/Vol]0.81 mg/dLNormal0.60-1.20[facility] Physician GroupComment on above:Performed By: #### CMP, CBC ####[address] [address] USACreatinine Clr Calc Atfeswxh89.51 NormalThe Highlands-C[facility]iers Hospital Physician GroupComment on above:Result Comment: PERFORMED BY: [facility] [address] [place] [address] PATHOLOGIST SUPERVISOR [employer]ING [employer] JOINING MANDY ACUÑA M.D.Performed By: #### CMP, CBC ####[address] [address] USAGFR/1.73 sq M.predicted MDRD (S/P/Bld) [Vol rate/Area]mL/min/{1.73_m2}NormalThe [facility]lands[facility] Comment on above:Performed By: #### CMP, CBC ####[place] [id number] USAGlobulin (S) [Mass/Vol]3.2 g/dLNormal [facility] Physician GroupComment on above:Performed By: #### CMP, CBC ####[place] [address] USAGlucose [Mass/Vol]145 mg/wXJnal01-667Ubo [facility] Physician GroupComment on above: Result Comment: Random Glucose Reference Range is dependent on time and content of last meal. Glucose of more than 200 mg/dL in a nonstressed, ambulatory subject supports the diagnosis of Diabetes Mellitus. ADA recommended reference rangePerformed By: #### CMP, CBC ####[place] [address] USAPotassium [Moles/Vol] 4.1 mmol/LNormal3.5-5.1The [facility] Physician GroupComment on above:Performed By: #### CMP, CBC ####[place] [id number] USAProtein [Mass/Vol]6.9 g/dLNormal6.4-8.9[facility] Comment on above:Performed By: #### CMP, CBC ####[place] [address] USASodium [Moles/Vol]131 mmol/EWef350-506 [facility] Physician GroupComment on above:Performed By: #### CMP, CBC ####[place] [id number] USAUrea nitrogen [Mass/Vol]24 mg/dLNormal7-25The [facility] Physician GroupComment on above:Performed By: #### CMP, CBC ####[place] [id number] USACreatinine [Mass/volume] in Serum or PlasmaOrdered By: Daniel Garza on 38-42-6336Cqritdegja [Mass/Vol]Creatinine [Mass/volume] in Serum or Plasma0.60-1.20[facility] Doctors HospitalEosinophils Auto (Bld) [#/Vol]Ordered By: Daniel Garza on 31-57-2911Riobtnjbbqr (Bld) [#/Vol]Automated eosinophil count0.0-0.45Ohio[facility] Doctors HospitalEosinophils/100 WBC Auto (Bld)Ordered By: Daniel Garza on 62-81-7250Vaeocvsjref/100 WBC (Bld) Automated eosinophil %.[facility] Doctors HospitalErythrocyte distribution width Auto (RBC) [Ratio]Ordered By: Daniel Garza on 77-71-8993Tyiykrqpwco distribution width (RBC) [Ratio]Erythrocyte distribution width [Ratio] by Automated count11.9-15.3FCincinnati VA Medical CenterGlobulin Calc (S) [Mass/Vol]Ordered By: Daniel Garza on 69-46-6431Mzwkzdvu (S) [Mass/Vol]Serum globulin measurement by calculation (mass/volume)[facility] Doctors HospitalGlucose Glucometer (BldC) [Mass/Vol]Ordered By: Daniel Garza on 12-14-2024 Glucose [Mass/Vol]Capillary blood glucose measurement by glucometer (mass/volume)[facility] HospitalComment on above:Random Glucose Reference Range is dependent on time and content of last meal. Glucose of more than 200 mg/dL in a nonstressed, ambulatory subject supports the diagnosis of Diabetes Mellitus.Glucose Poct Glucometerson 19-83-4831Iwgsvct [Mass/Vol]236 mg/dLNoCaroMont Regional Medical Center - [facility] Holly Physician GroupComment on above:Result Comment: Random Glucose Reference Range is dependent on time and content of last meal. Glucose of more than 200 mg/dL in a nonstressed, ambulatory subject supports the diagnosis of Diabetes Mellitus. PERFORMED BY: [place] [address] [place] [address] PATHOLOGIST SUPERVISOR [employer] JOINING MANDY ACUÑA M.D.Performed By: #### ABG #### Point of Care testing ,Glucose [Mass/Vol]154 mg/dLNoCaroMont Regional Medical Center [facility] Holly Physician GroupComment on above: Result Comment: Random Glucose Reference Range is dependent on time and content of last meal. Glucose of more than 200 mg/dL in a nonstressed, ambulatory subject supports the diagnosis of Diabetes Mellitus. PERFORMED BY: [facility] [address] [place] [address] PATHOLOGIST SUPERVISOR [employer] MANDY ACUÑA M.D.Performed By: #### GLULS #### Point of Care testing ,Glucose [Mass/Vol]105 mg/dLHendry Regional Medical Center Physician GroupComment on above: Result Comment: Random Glucose Reference Range is dependent on time and content of last meal. Glucose of more than 200 mg/dL in a nonstressed, ambulatory subject supports the diagnosis of Diabetes Mellitus. PERFORMED BY: [facility] [address] [place] [address] PATHOLOGIST SUPERVISOR [employer] MANDY ACUÑA M.D.Performed By: #### ABG #### Point of Care testing ,Glucose [Mass/volume] in Serum or PlasmaOrdered By: Daniel Garza on 12-14-2024 Glucose [Mass/Vol]Glucose [Mass/volume] in Serum or EtokjaOubo08-359LdilkbnkwOhiohealth Doctors HospitalComment on above:ADA recommended reference rangeRandom Glucose Reference Range is dependent on time and content of last meal. Glucose of more than 200 mg/dL in a nonstressed, ambulatory subject supports the diagnosisof Diabetes Mellitus.Hematocrit Auto (Bld) [Volume fraction]Ordered By: Daniel Garza on 38-65-1186Lnghjahykq (Bld) [Volume fraction]Hematocrit [Volume Fraction] of Blood by Automated count34.0-46.4FCincinnati VA Medical Center Hemoglobin [Mass/volume] in BloodOrdered By: Daniel Garza on 71-70-9882Dffbtdutvf (Bld) [Mass/Vol]Hemoglobin [Mass/volume] in Blood11.8-15.4FCincinnati VA Medical CenterLeukocytes [#/volume] corrected for nucleated erythrocytes in Blood by Automated counOrdered By: Daniel Garza on 97-25-1004KAN corrected for nucl RBC Auto (Bld) [#/Vol]Leukocytes [#/volume] corrected for nucleated erythrocytes in Blood by Automated coun3.8-11.6FCincinnati VA Medical Center Lymphocytes Auto (Bld) [#/Vol]Ordered By: Daniel Garza on 38-56-8569Xyhhibbdjoa (Bld) [#/Vol]Lymphocytes [#/volume] in Blood by Automated countLow1.00-4.8 [facility] HospitalLymphocytes/100 WBC Auto (Bld)Ordered By: Daniel Garza on 80-88-0253Bxrwgfrxhjq/100 WBC (Bld)Lymphocytes/100 leukocytes in Blood by Automated count.[facility] Doctors HospitalMCH Auto (RBC) [Entitic mass]Ordered By: Daniel Garza on 00-71-8586PGD (RBC) [Entitic mass]MCH [Entitic mass] by Automated count24.7-34.3FCincinnati VA Medical CenterMCHC Auto (RBC) [Mass/Vol]Ordered By: Daniel Garza on 35-47-5538OHDZ (RBC) [Mass/Vol]MCHC [Mass/volume] by Automated count32.0-35.0[facility] Doctors HospitalMCV Auto (RBC) [Entitic vol]Ordered By: Daniel Garza on 31-51-0100OUT (RBC) [Entitic vol]MCV [Entitic volume] by Automated jqogg55-380HuoptcnppOhiohealth Doctors HospitalMonocytes Auto (Bld) [#/Vol]Ordered By: Daniel Garza on 44-19-4473Qnrlzehtn (Bld) [#/Vol]Automated blood monocyte count0.0-0.8Ohio[facility] Doctors HospitalMonocytes/100 WBC Auto (Bld)Ordered By: Daniel Garza on 12-14-2024 Monocytes/100 WBC (Bld)Automated monocyte %.[facility] Neutrophils Auto (Bld) [#/Vol]Ordered By: Daniel Garza on 17-49-8572Hcmdkwsvadt (Bld) [#/Vol]Neutrophils [#/volume] in Blood by Automated count1.8-7.7FCincinnati VA Medical CenterNeutrophils/100 WBC Auto (Bld)Ordered By: Daniel Garza on 05-95-4867Eefrhqpjkci/100 WBC (Bld)Automated neutrophil %.[facility] Doctors HospitalNo Panel InformationOrdered By: Daniel Garza on 66-82-0492Bplkamwza GFR (CKD-EPI)> 60.0 mL/MinOhiohealth Doctors HospitalPharmacy Creatinine Clearance (Chem66.51Ohio[facility] Doctors HospitalNucleated erythrocytes [Presence] in Blood by Automated countOrdered By: Daniel Garza on 12-14-2024 Nucleated RBC Auto Ql (Bld)Nucleated erythrocytes [Presence] in Blood by Automated count0-0.5FCincinnati VA Medical CenterPlatelet mean volume Auto (Bld) [Entitic vol]Ordered By: Daniel Garza on 47-70-9683Qqyowpix mean volume (Bld) [Entitic vol]Platelet mean volume [Entitic volume] in Blood by Automated count6.3-10.7FCincinnati VA Medical CenterPlatelets Auto (Bld) [#/Vol] Ordered By: Daniel Garza on 72-55-5183Eeqkdvebq (Bld) [#/Vol]Platelets [#/volume] in Blood by Automated icmed378-004GfkoghasgOhiohealth Doctors HospitalPotassium [Moles/volume] in Serum or PlasmaOrdered By: Daniel Garza on 09-72-2070Slwzrojhx [Moles/Vol]Potassium [Moles/volume] in Serum or Plasma3.5-5.1FCincinnati VA Medical CenterProtein [Mass/volume] in Serum or PlasmaOrdered By: Daniel Garza on 10-54-3124Vyyuyrf [Mass/Vol]Protein [Mass/volume] in Serum or Plasma6.4-8.9 [facility] HospitalRBC Auto (Bld) [#/Vol]Ordered By: Daniel Garza on 60-23-6956ERU (Bld) [#/Vol]Erythrocytes [#/volume] in Blood by Automated count3.60-5.00Mary Rutan Hospitalerum or plasma albumin/globulin mass ratioOrdered By: Daniel Garza on 82-51-0883Cjzurll/Globulin [Mass ratio] Serum or plasma albumin/globulin mass ratioOhiohealth Doctors Hospital Serum or plasma anion gap determinationOrdered By: Daniel Garza on 12-14-2024 Anion gap [Moles/Vol]Serum or plasma anion gap determination6.0-15.0[facility] Medical CenterSodium [Moles/volume] in Serum or PlasmaOrdered By: Daniel Garza on 52-82-2108Rzxywd [Moles/Vol]Sodium [Moles/volume] in Serum or Plasma Haj389-318RitlykfpdOhiohealth Doctors HospitalUrea nitrogen [Mass/volume] in Serum or PlasmaOrdered By: Daniel Garza on 66-91-2477Jyxs nitrogen [Mass/Vol]Urea nitrogen [Mass/volume] in Serum or Plasma7-25[facility] WBC Auto (Bld) [#/Vol]Ordered By: Daniel Garza on 55-21-3722DXC (Bld) [#/Vol] Leukocytes [#/volume] in Blood by Automated count3.8-11.6FCincinnati VA Medical CenterComplete Blood Count Auto Diffon 19-47-3401Objgybkiw (Bld) [#/Vol] 0.0 10*3/uLNormal0.0-0.2The [facility] Physician GroupComment on above:Result Comment: PERFORMED BY: [facility] [address] [place] [address] PATHOLOGIST SUPERVISOR [employer] MANDY ACUÑA M.D.Performed By: #### CBC, CMP ####[place] [address] USABasophils/100 WBC (Bld)0.1 % Normal.The [facility] Physician GroupComment on above:Performed By: #### CBC, CMP ####[place] [address] [place] Eosinophils (Bld) [#/Vol]0.0 10*3/uLNormal0.0-0.45The [facility] Comment on above:Performed By: #### CBC, CMP ####[place] [address] USAEosinophils/100 WBC (Bld)0.0 %Normal. The [facility] Physician GroupComment on above:Performed By: #### CBC, CMP ####[address] Erythrocyte distribution width (RBC) [Ratio]15.4 %High11.9-15.3The [facility] Physician GroupComment on above:Performed By: #### CBC, CMP ####[place] [address] USAHematocrit (Bld) [Volume fraction]40.5 %Piwslp26.0-46.4The [facility] Physician GroupComment on above:Performed By: #### CBC, CMP ####[place] [address] USAHemoglobin (Bld) [Mass/Vol]13.4 g/tMGiywil72.8-15.4 The [facility] Physician GroupComment on above:Performed By: #### CBC, CMP ####[place] [address] [place] Lymphocytes (Bld) [#/Vol]0.7 10*3/uLLow1.00-4.8The [facility] Comment on above:Performed By: #### CBC, CMP ####[place] [address] USALymphocytes/100 WBC (Bld)6.4 %Normal. The [facility] Physician GroupComment on above:Performed By: #### CBC, CMP ####[place] [address] USAMCH (RBC) [Entitic mass]28.5 yfDmdxfl66.7-34.3The [facility] Physician GroupComment on above:Performed By: #### CBC, CMP ####[place] [address] USAMCV (RBC) [Entitic vol]86.4 mGEjdrub24-405Upt [facility] Physician GroupComment on above:Performed By: #### CBC, CMP ####[place] [address] USAMean Corpuscular HGB Conc33.0 g/eSWmrzsb62.0-35.0The [facility] Physician GroupComment on above:Performed By: #### CBC, CMP ####[place] [address] USAMonocytes (Bld) [#/Vol]0.7 10*3/uLNormal 0.0-0.8The [facility] Physician GroupComment on above:Performed By: #### CBC, CMP ####[place] [address] [place] Monocytes/100 WBC (Bld)6.5 %Normal.The [facility] Physician GroupComment on above:Performed By: #### CBC, CMP ####[place] [address] USANeutrophils (Bld) [#/Vol]9.3 10*3/uLHigh1.8-7.7The [facility] Physician GroupComment on above:Performed By: #### CBC, CMP ####[place] [address] [place] Neutrophils/100 WBC (Bld)87.0 %Normal.The [facility] Physician GroupComment on above:Performed By: #### CBC, CMP ####[place] [address] USANRBC%0.1 /100{WBC}Normal0-0.5The [facility] Physician GroupComment on above:Performed By: #### CBC, CMP ####[place] [address] USAPlatelet mean volume (Bld) [Entitic vol]7.3 fLNormal6.3-10.7The [facility] Physician GroupComment on above: Performed By: #### CBC, CMP ####[place] [address] USAPlatelets (Bld) [#/Vol]302 10*3/nDBjdukl571-376Jtk [facility] Physician GroupComment on above:Performed By: #### CBC, CMP ####[place] [address] USARBC (Bld) [#/Vol]4.68 10*6/uLNormal3.60-5.00The [facility] Physician GroupComment on above:Performed By: #### CBC, CMP ####[address] [address] USAWBC (Bld) [#/Vol]10.6 10*3/uLNormal3.8-11.6The [facility] Physician GroupComment on above:Performed By: #### CBC, CMP ####[address] [address] [facility] Comprehensive Metabolic Panelon 27-00-1440Lrwzxcx [Mass/Vol]3.8 g/dLNormal 3.5-5.7The [facility] Physician GroupComment on above:Performed By: #### CBC, CMP ####[address] [address] [facility] Albumin/Globulin [Mass ratio]1.2 {ratio}NormalThe [facility] Physician [facility] Comment on above:Performed By: #### CBC, CMP ####[address] [address] USAALP [Catalytic activity/Vol]84 U/L Vschpj44-153Sfj [facility] Physician GroupComment on above:Performed By: #### CBC, CMP ####[address] [address] USAALT [Catalytic activity/Vol]65 U/LHigh7-52The [facility] Physician [facility] Comment on above:Performed By: #### CBC, CMP ####[address] [address] USAAnion gap [Moles/Vol]14.3 mmol/LNormal 6.0-15.0The [facility] Physician GroupComment on above:Performed By: #### CBC, CMP ####[address] [address] USAAST [Catalytic activity/Vol]38 U/PWbplnp37-04Dyb [facility] Physician GroupComment on above:Performed By: #### CBC, CMP ####[address] [address] USABilirubin [Mass/Vol]0.5 mg/dLNormal0.3-1.0The [facility] Physician GroupComment on above:Performed By: #### CBC, CMP ####[address] [address] USACalcium [Mass/Vol]8.9 mg/dLNormal8.6-10.3The [facility] Physician GroupComment on above: Performed By: #### CBC, CMP ####[address] [address] USAChloride [Moles/Vol]95 mmol/DJpf15-896Gsj [facility] Physician GroupComment on above:Performed By: #### CBC, CMP ####[address] [address] USACO2 [Moles/Vol]30.8 mmol/MVcfnsb62.0-31.0The [facility] Physician GroupComment on above:Performed By: #### CBC, CMP ####[address] [address] USACreatinine [Mass/Vol]0.99 mg/dLNormal0.60-1.20The [facility] Physician GroupComment on above:Performed By: #### CBC, CMP ####[place] [address] USACreatinine Clr Calc Fvtigbqh19.42 NormalThe [facility]lands-[facility]iers Hospital Physician GroupComment on above:Result Comment: PERFORMED BY: [address] [place] [address] PATHOLOGIST SUPERVISOR [employer] JOINING MANDY ACUÑA M.D.Performed By: #### CBC, CMP ####[place] [address] USAGFR/1.73 sq M.predicted MDRD (S/P/Bld) [Vol rate/Area]mL/min/{1.73_m2}NormalThe [facility] Comment on above:Performed By: #### CBC, CMP ####[address] [address] USAGlobulin (S) [Mass/Vol]3.1 g/dLNormal The [facility] Physician GroupComment on above:Performed By: #### CBC, CMP ####[place] [id number] USAGlucose [Mass/Vol]97 mg/qNLmafob37-956Gtu [facility] Physician GroupComment on above: Result Comment: Random Glucose Reference Range is dependent on time and content of last meal. Glucose of more than 200 mg/dL in a nonstressed, ambulatory subject supports the diagnosis of Diabetes Mellitus. ADA recommended reference rangePerformed By: #### CBC, CMP ####[place] [address] USAPotassium [Moles/Vol] 4.1 mmol/LNormal3.5-5.1The [facility] Physician [facility] HospitalComment on above:Performed By: #### CBC, CMP ####[place] [address] USAProtein [Mass/Vol]6.9 g/dLNormal6.4-8.9The [facility] Physician [facility] Comment on above:Performed By: #### CBC, CMP ####[place] [address] USASodium [Moles/Vol]136 mmol/LNormal 136-145The [facility] Physician [facility] HospitalComment on above:Performed By: #### CBC, CMP ####[place] [address] USAUrea nitrogen [Mass/Vol]22 mg/dLNormal7-25The [facility] Physician [facility] HospitalComment on above:Performed By: #### CBC, CMP ####[place] [address] USAGlucose Poct Glucometerson 93-76-1757Svhccin9Dnw2: Cleaned MeterNoCaroMont Regional Medical Center - [facility] Physician [facility]oula HospitalComment on above:Result Comment: PERFORMED BY: [place] [id number] PATHOLOGIST SUPERVISOR [employer] JOINING MANDY ACUÑA M.D.Performed By: #### GLULS ####Point of Care testing, Glucose [Mass/Vol]277 mg/dLNoCaroMont Regional Medical Center [facility] Physician [facility]oula HospitalComment on above: Result Comment: Random Glucose Reference Range is dependent on time and content of last meal. Glucose of more than 200 mg/dL in a nonstressed, ambulatory subject supports the diagnosis of Diabetes Mellitus.Performed By: #### GLULS ####Point of Care testing,Glucose [Mass/Vol]141 mg/dLNoCaroMont Regional Medical Center - [facility] Physician GroupComment on above:Result Comment: Random Glucose Reference Range is dependent on time and content of last meal. Glucose of more than 200 mg/dL in a nonstressed, ambulatory subject supports the diagnosis of Diabetes Mellitus. PERFORMED BY: [place] [id number] PATHOLOGIST SUPERVISOR [employer] JOINING MANDY ACUÑA M.D.Performed By: #### GLULS ####Point of Care testing, Glucose [Mass/Vol]150 mg/dLHendry Regional Medical Center Physician GroupComment on above: Result Comment: Random Glucose Reference Range is dependent on time and content of last meal. Glucose of more than 200 mg/dL in a nonstressed, ambulatory subject supports the diagnosis of Diabetes Mellitus. PERFORMED BY: [facility] [address] [place] [place] [address] PATHOLOGIST SUPERVISOR [employer] JOINING MANDY ACUÑA M.D.Performed By: #### GLULS #### Point of Care testing ,Glucose [Mass/Vol]117 mg/dLNoCaroMont Regional Medical Center - [facility] Physician GroupComment on above: Result Comment: Random Glucose Reference Range is dependent on time and content of last meal. Glucose of more than 200 mg/dL in a nonstressed, ambulatory subject supports the diagnosis of Diabetes Mellitus. PERFORMED BY: [facility] [address] [place] [place] [address] PATHOLOGIST SUPERVISOR [employer] JOINING MANDY ACUÑA M.D.Performed By: #### GLULS ####Point of Care testing,No Panel InformationOrdered By: Daniel Garza on 32-29-6746Swsqntb Glucose Comment Glu2: cleaned [facility] HospitalComplete Blood Count Auto Diffon 83-33-4348Hkioaopne (Bld) [#/Vol]0.0 10*3/uLNormal0.0-0.2The [facility] Physician GroupComment on above:Result Comment: PERFORMED BY: [facility] [address] [place] [address] PATHOLOGIST SUPERVISOR [employer] JOINING MANDY ACUÑA M.D.Performed By: #### ABG #### Point of Care testing ,Basophils/100 WBC (Bld)0.0 %Normal.The [facility] Physician GroupComment on above:Performed By: #### ABG #### Point of Care testing ,Eosinophils (Bld) [#/Vol]0.0 10*3/uLNormal0.0-0.45The [facility] Comment on above:Performed By: #### ABG #### Point of Care testing ,Eosinophils/100 WBC (Bld)0.0 %Normal.The [facility] Physician GroupComment on above:Performed By: #### ABG #### Point of Care testing ,Erythrocyte distribution width (RBC) [Ratio]15.8 %High11.9-15.3The [facility] Physician GroupComment on above:Performed By: #### ABG #### Point of Care testing ,Hematocrit (Bld) [Volume fraction]34.5 %Pwdcxj67.0-46.4The [facility] Physician GroupComment on above:Performed By: #### ABG #### Point of Care testing ,Hemoglobin (Bld) [Mass/Vol]11.3 g/dLLow11.8-15.4The [facility] Physician [facility] Comment on above:Performed By: #### ABG #### Point of Care testing ,Lymphocytes (Bld) [#/Vol]0.3 10*3/uLLow1.00-4.8The [facility] Comment on above:Performed By: #### ABG #### Point of Care testing ,Lymphocytes/100 WBC (Bld)2.2 %Normal.The [facility] Physician GroupComment on above:Performed By: #### ABG #### Point of Care testing ,MCH (RBC) [Entitic mass]28.0 kkZuzgxi18.7-34.3The [facility] Comment on above:Performed By: #### ABG #### Point of Care testing ,MCV (RBC) [Entitic vol]85.4 gWBjtghu03-874Ovd [facility] Physician GroupComment on above:Performed By: #### ABG #### Point of Care testing ,Mean Corpuscular HGB Conc32.8 g/wPUnarad66.0-35.0The [facility] Physician [facility] Comment on above:Performed By: #### ABG #### Point of Care testing ,Monocytes (Bld) [#/Vol]0.6 10*3/uLNormal0.0-0.8The [facility] Comment on above:Performed By: #### ABG #### Point of Care testing ,Monocytes/100 WBC (Bld)4.8 %Normal.The [facility] Physician GroupComment on above:Performed By: #### ABG #### Point of Care testing ,Neutrophils (Bld) [#/Vol]10.8 10*3/uLHigh1.8-7.7The [facility] Physician [facility] Comment on above:Performed By: #### ABG #### Point of Care testing ,Neutrophils/100 WBC (Bld)93.0 %Normal.The [facility] Physician GroupComment on above:Performed By: #### ABG #### Point of Care testing ,NRBC%0.0 /100{WBC}Normal0-0.5The [facility] Physician GroupComment on above: Performed By: #### ABG #### Point of Care testing ,Platelet mean volume (Bld) [Entitic vol]7.4 fLNormal6.3-10.7The [facility] Physician GroupComment on above:Performed By: #### ABG #### Point of Care testing ,Platelets (Bld) [#/Vol]282 10*3/rMZmvulx506-281Rdh [facility] Physician [facility] Comment on above:Performed By: #### ABG #### Point of Care testing ,RBC (Bld) [#/Vol]4.04 10*6/uLNormal3.60-5.00The [facility] Physician [facility] Comment on above:Performed By: #### ABG #### Point of Care testing ,WBC (Bld) [#/Vol]11.6 10*3/uLNormal3.8-11.6The [facility] Physician GroupComment on above:Performed By: #### ABG #### Point of Care testing ,Comprehensive Metabolic Panelon 92-12-5997Eiuiioe [Mass/Vol]3.6 g/dLNormal 3.5-5.7The [facility] Physician GroupComment on above:Performed By: #### PHOS, CMP ####[place] [id number] [facility] Albumin/Globulin [Mass ratio]1.3 {ratio}NormalThe [facility] Physician [facility] Comment on above:Performed By: #### PHOBarbara, CMP ####[address] [address] USAALP [Catalytic activity/Vol]72 U/L Kzkkoo37-973Yzg [facility] Physician [facility] HospitalComment on above:Performed By: #### PHOBarbara, CMP ####[address] [address] [place]ALT [Catalytic activity/Vol]67 U/LHigh7-52The [facility] Physician [facility] Comment on above:Performed By: #### PHOBarbara, CMP ####[address] [address] USAAnion gap [Moles/Vol]12.5 mmol/LNormal 6.0-15.0The [facility] Physician GroupComment on above:Performed By: #### PHOS, CMP ####[address] [address] USAAST [Catalytic activity/Vol]41 U/LDozp92-63Ixh [facility] Physician [facility] HospitalComment on above:Performed By: #### PHOS, CMP ####[address] [address] USABilirubin [Mass/Vol]0.4 mg/dLNormal0.3-1.0The [facility] Physician GroupComment on above:Performed By: #### PHOS, CMP ####[address] [address] USACalcium [Mass/Vol]8.3 mg/dLLow8.6-10.3The [facility] Physician GroupComment on above: Performed By: #### LUCY, CMP ####[place] [address] USAChloride [Moles/Vol]101 mmol/RRyetfa38-433Rxx [facility] Physician GroupComment on above:Performed By: #### LUCY, CMP ####[place] [address] USACO2 [Moles/Vol]29.2 mmol/EQtkgkt46.0-31.0The [facility] Physician GroupComment on above:Performed By: #### LUCY, CMP ####[place] [address] USACreatinine [Mass/Vol]0.65 mg/dLNormal0.60-1.20ThPower County Hospital Physician GroupComment on above:Performed By: #### LUCY, CMP ####[place] [address] [place] Creatinine Clr Calc Hgiibnam32.88NormMemorial Hospital Pembroke Physician [facility]ascagoula HospitalComment on above:Performed By: #### LUCY, CMP ####[place] [address] USAGFR/1.73 sq M.predicted MDRD (S/P/Bld) [Vol rate/Area]mL/min/{1.73_m2}NormalThe Highlands-[facility]ashiers Hospital Physician GroupComment on above: Performed By: #### LUCY, CMP ####[place] [id number] USAGlobulin (S) [Mass/Vol]2.7 g/dLNormMemorial Hospital Pembroke Physician Pascagoula HospitalComment on above:Performed By: #### LUCY, CMP ####[place] [id number] USAGlucose [Mass/Vol]123 mg/bGVvjy12-730Gtn [facility] Physician GroupComment on above:Result Comment: Random Glucose Reference Range is dependent on time and content of last meal. Glucose of more than 200 mg/dL in a nonstressed, ambulatory subject supports the diagnosis of Diabetes Mellitus. ADA recommended reference rangePerformed By: #### PHOS, CMP ####[place] [id number] [place] [address] USAPotassium [Moles/Vol] 3.7 mmol/LNormal3.5-5.1The [facility] Physician [facility]agoula HospitalComment on above:Performed By: #### PHOS, CMP ####[place] [id number] USAProtein [Mass/Vol]6.3 g/dLLow6.4-8.9The [facility] Physician [facility] Comment on above:Performed By: #### PHOS, CMP ####[place] [address] USASodium [Moles/Vol]139 mmol/LNormal 136-145The [facility] Physician GroupComment on above:Performed By: #### PHOS, CMP ####[place] [id number] [place] Urea nitrogen [Mass/Vol]16 mg/dLNormal7-25The [facility] Physician GroupComment on above:Performed By: #### PHOS, CMP ####[place] [id number] USAGlucose Poct Glucometerson 83-38-8610Jgdidcg2 Glu2: Cleaned MeterNoOhioHealthComment on above:Result Comment: PERFORMED BY: [facility] [address] [place] [id number] PATHOLOGIST SUPERVISOR BURLING AND JOINING MANDY ACUÑA M.D.Performed By: #### GLULS #### Point of Care testing ,Glucose [Mass/Vol]114 mg/dLHendry Regional Medical Center Physician [place]oula HospitalComment on above: Result Comment: Random Glucose Reference Range is dependent on time and content of last meal. Glucose of more than 200 mg/dL in a nonstressed, ambulatory subject supports the diagnosis of Diabetes Mellitus.Performed By: #### GLULS #### Point of Care testing ,Glucose [Mass/Vol]107 mg/dLHendry Regional Medical Center Physician GroupComment on above: Result Comment: Random Glucose Reference Range is dependent on time and content of last meal. Glucose of more than 200 mg/dL in a nonstressed, ambulatory subject supports the diagnosis of Diabetes Mellitus. PERFORMED BY: [place] [id number] PATHOLOGIST SUPERVISOR BURLING [employer] JOINING MANDY ACUÑA M.D.Performed By: #### GLULS ####Point of Care testing, Glucose [Mass/Vol]177 mg/dLHendry Regional Medical Center Physician GroupComment on above: Result Comment: Random Glucose Reference Range is dependent on time and content of last meal. Glucose of more than 200 mg/dL in a nonstressed, ambulatory subject supports the diagnosis of Diabetes Mellitus. PERFORMED BY: [place] [id number] PATHOLOGIST SUPERVISOR BURLING [employer] JOINING MANDY ACUÑA M.D.Performed By: #### GLULS #### Point of Care testing ,Glucose [Mass/Vol]150 mg/dLNoCaroMont Regional Medical Center - Mount Holly Physician GroupComment on above: Result Comment: Random Glucose Reference Range is dependent on time and content of last meal. Glucose of more than 200 mg/dL in a nonstressed, ambulatory subject supports the diagnosis of Diabetes Mellitus. PERFORMED BY: [place] [id number] PATHOLOGIST SUPERVISOR BURLING [employer] JOINING MANDY ACUÑA M.D.Performed By: #### GLULS #### Point of Care testing ,Phosphate [Mass/volume] in Serum or PlasmaOrdered By: Daniel Garza on 12-12-2024 Phosphate [Mass/Vol]Phosphate [Mass/volume] in Serum or PlasmaLow2.5-4.5 [facility] Doctors HospitalPhosphoruson 61-17-4933Fxdmregkj [Mass/Vol]2.0 mg/dLLow2.5-4.5The [facility] Physician GroupComment on above:Result Comment: PERFORMED BY: [place] [id number] PATHOLOGIST SUPERVISOR BURLING [employer] JOINING MANDY ACUÑA M.D.Performed By: #### PHOS, CMP ####[facility] [place] [address] USAArterial Blood Gason 95-29-1719PJL Base Excess-3.0 mmol/LNormal-3.0-3.0The [facility]ician Group Comment on above:Performed By: #### ABG #### Point of Care testing ,ABG Frac Inspired O255 %NormalThe Highlands-Cashiers Hospital Physician GroupComment on above: Performed By: #### ABG #### Point of Care testing ,ABG Oxygen Content6.9 mmol/LNormal6.6-9.7The [facility] Hospital Physician GroupComment on above:Performed By: #### ABG #### Point of Care testing ,ABG Oxygen Agfjcbgfce02.1 %Jfwfye73.0-100.0The [facility] Hospital Physician GroupComment on above:Performed By: #### ABG #### Point of Care testing ,ABG PDZ100.3 mm[Hg]Iwzcvr94.0-45.0The [facility] Hospital Physician GroupComment on above:Performed By: #### ABG #### Point of Care testing ,ABG PEEP8 knE48LhuzrmMfe [facility] Physician GroupComment on above:Performed By: #### ABG #### Point of Care testing ,ABG PH7.44Boelan0.35-7.45The [facility] Hospital Physician GroupComment on above: Performed By: #### ABG #### Point of Care testing ,ABG EV6976.0 mm[Hg]Off scale high80.0-100.0The [facility] Physician GroupComment on above:Performed By: #### ABG #### Point of Care testing ,ABG TV420 mLNormalThe Highlands-[facility]iers Hospital Physician GroupComment on above:Performed By: #### ABG #### Point of Care testing ,Respiratory CriticalNormMemorial Hospital Pembroke Physician GroupComment on above:Result Comment: Critical Value called on: 12/11/2024 at 04:26 PERFORMED BY: [facility] [address] [place] [address] PATHOLOGIST SUPERVISOR BURLING [employer] JOINING MANDY ACUÑA M.D.Performed By: #### ABG #### Point of Care testing ,Set Respiratory Vvcb93QproquWwwHendry Regional Medical Center Physician GroupComment on above: Performed By: #### ABG #### Point of Care testing ,VBG Draw SiteLeft RadialHendry Regional Medical Center Physician GroupComment on above: Performed By: #### ABG #### Point of Care testing ,Ventilator ModeACHendry Regional Medical Center Physician GroupComment on above:Performed By: #### ABG #### Point of Care testing ,Arterial Blood GasOrdered By: Daniel Garza on 02-49-5951LL7 [Moles/Vol]23.4 mmol/YAitqeo04.0-27.0[facility] Doctors HospitalComment on above:Performed By: #### ABG #### Point of Care testing ,HCO3 (Bld) [Moles/Vol]22.2 mmol/LLow23.0-29.0[facility] Comment on above:Performed By: #### ABG #### Point of Care testing ,Complete Blood Count Auto Diffon 99-18-5592Ihadiyphv (Bld) [#/Vol]0.1 10*3/uL Normal0.0-0.2The [facility] Physician GroupComment on above:Result Comment: PERFORMED BY: [facility] [address] [place] [address] PATHOLOGIST SUPERVISOR BURLING [employer] JOINING MANDY ACUÑA M.D.Performed By: #### GLULS #### Point of Care testing ,Basophils/100 WBC (Bld)0.4 %Normal.The [facility] Physician GroupComment on above:Performed By: #### GLULS #### Point of Care testing ,Eosinophils (Bld) [#/Vol]0.0 10*3/uLNormal0.0-0.45The [facility] Physician [facility] Comment on above:Performed By: #### GLULS #### Point of Care testing ,Eosinophils/100 WBC (Bld)0.0 %Normal.The [facility] Physician GroupComment on above:Performed By: #### GLULS #### Point of Care testing ,Erythrocyte distribution width (RBC) [Ratio]16.3 %High11.9-15.3The [facility] Physician GroupComment on above:Performed By: #### GLULS #### Point of Care testing ,Hematocrit (Bld) [Volume fraction]32.9 %Low34.0-46.4The [facility] Physician GroupComment on above:Performed By: #### GLULS #### Point of Care testing ,Hemoglobin (Bld) [Mass/Vol]10.8 g/dLLow11.8-15.4The [facility] Comment on above:Performed By: #### GLULS #### Point of Care testing ,Lymphocytes (Bld) [#/Vol]0.3 10*3/uLLow1.00-4.8The [facility] Comment on above:Performed By: #### GLULS #### Point of Care testing ,Lymphocytes/100 WBC (Bld)1.7 %Normal.The [facility] Physician GroupComment on above:Performed By: #### GLULS #### Point of Care testing ,MCH (RBC) [Entitic mass]28.9 ocAmuewy78.7-34.3The [facility] Comment on above:Performed By: #### GLULS #### Point of Care testing ,MCV (RBC) [Entitic vol]87.9 eIQsljcy17-282Jau [facility] Physician GroupComment on above:Performed By: #### GLULS #### Point of Care testing ,Mean Corpuscular HGB Conc32.9 g/eNHpixuf37.0-35.0The [facility] Physician [facility] Comment on above:Performed By: #### GLULS #### Point of Care testing ,Monocytes (Bld) [#/Vol]0.5 10*3/uLNormal0.0-0.8The [facility] Comment on above:Performed By: #### GLULS #### Point of Care testing ,Monocytes/100 WBC (Bld)3.4 %Normal.The [facility] Physician GroupComment on above:Performed By: #### GLULS #### Point of Care testing ,Neutrophils (Bld) [#/Vol]14.5 10*3/uLHigh1.8-7.7The [facility] Comment on above:Performed By: #### GLULS #### Point of Care testing ,Neutrophils/100 WBC (Bld)94.5 %Normal.The [facility] Physician GroupComment on above:Performed By: #### GLULS #### Point of Care testing ,NRBC%0.0 /100{WBC}Normal0-0.5The [facility] Physician GroupComment on above: Performed By: #### GLULS #### Point of Care testing ,Platelet mean volume (Bld) [Entitic vol]7.2 fLNormal6.3-10.7The [facility] Physician GroupComment on above:Performed By: #### GLULS #### Point of Care testing ,Platelets (Bld) [#/Vol]244 10*3/lQItofru822-001Ijz [facility] Physician [facility] Comment on above:Performed By: #### GLULS #### Point of Care testing ,RBC (Bld) [#/Vol]3.74 10*6/uLNormal3.60-5.00The [facility] Physician [facility] Comment on above:Performed By: #### GLULS #### Point of Care testing ,WBC (Bld) [#/Vol]15.4 10*3/uLHigh3.8-11.6The [facility] Physician GroupComment on above:Performed By: #### GLULS #### Point of Care testing ,Comprehensive Metabolic Panelon 21-62-2455Llqimrg [Mass/Vol]3.4 g/dLLow3.5-5.7 The [facility] Physician GroupComment on above:Performed By: #### GLULS #### Point of Care testing ,Albumin/Globulin [Mass ratio]1.6 {ratio}NormalThe [facility] Physician [facility] Comment on above:Performed By: #### GLULS #### Point of Care testing ,ALP [Catalytic activity/Vol]69 U/HKyrzal27-747Yfc [facility] Comment on above:Performed By: #### GLULS #### Point of Care testing ,ALT [Catalytic activity/Vol]76 U/LHigh7-52The [facility] Physician GroupComment on above:Performed By: #### GLULS #### Point of Care testing ,Anion gap [Moles/Vol]11.6 mmol/LNormal6.0-15.0[facility] Physician [facility] Comment on above:Performed By: #### GLULS #### Point of Care testing ,AST [Catalytic activity/Vol]49 U/EMeio28-02Kcd [facility] Physician GroupComment on above:Performed By: #### GLULS #### Point of Care testing ,Bilirubin [Mass/Vol]0.4 mg/dLNormal0.3-1.0The [facility] Physician GroupComment on above:Performed By: #### GLULS #### Point of Care testing ,Calcium [Mass/Vol]8.1 mg/dLLow8.6-10.3The [facility] Physician GroupComment on above:Performed By: #### GLULS #### Point of Care testing ,Chloride [Moles/Vol]105 mmol/PBkxjxb39-428Dha [facility] Physician GroupComment on above:Performed By: #### GLULS #### Point of Care testing ,CO2 [Moles/Vol]23.7 mmol/BPmccvb63.0-31.0The [facility] Physician GroupComment on above:Performed By: #### GLULS #### Point of Care testing ,Creatinine [Mass/Vol]0.74 mg/dLNormal0.60-1.20ThPower [facility] Hospital Physician [facility] Comment on above:Performed By: #### GLULS #### Point of Care testing ,Creatinine Clr Calc Dxstjdcb37.88NoCaroMont Regional Medical Center - Mount Holly Physician GroupComment on above:Performed By: #### GLULS #### Point of Care testing ,GFR/1.73 sq M.predicted MDRD (S/P/Bld) [Vol rate/Area]mL/min/{1.73_m2}NormalMemorial Regional Hospital Physician GroupComment on above:Performed By: #### GLULS #### Point of Care testing ,Globulin (S) [Mass/Vol]2.1 g/dLHendry Regional Medical Center Physician GroupComment on above:Performed By: #### GLULS #### Point of Care testing ,Glucose [Mass/Vol]134 mg/sUWxql28-698Ofk [facility] Physician GroupComment on above:Result Comment: Random Glucose Reference Range is dependent on time and content of last meal. Glucose of more than 200 mg/dL in a nonstressed, ambulatory subject supports the diagnosis of Diabetes Mellitus. ADA recommended reference rangePerformed By: #### GLULS #### Point of Care testing ,Potassium [Moles/Vol]4.3 mmol/LNormal3.5-5.1The [facility] Comment on above:Performed By: #### GLULS #### Point of Care testing ,Protein [Mass/Vol]5.5 g/dLLow6.4-8.9The [facility] Physician GroupComment on above:Performed By: #### GLULS #### Point of Care testing ,Sodium [Moles/Vol]136 mmol/LSignificant change yvfb739-906Jgz [facility] Physician GroupComment on above:Performed By: #### GLULS #### Point of Care testing ,Urea nitrogen [Mass/Vol]21 mg/dLNormal7-e [facility] Physician GroupComment on above:Performed By: #### GLULS #### Point of Care testing ,Glucose Poct Glucometerson 36-35-0740Wthghaf [Mass/Vol]132 mg/dLNoCaroMont Regional Medical Center [facility] Physician [place]oula HospitalComment on above:Result Comment: Random Glucose Reference Range is dependent on time and content of last meal. Glucose of more than 200 mg/dL in a nonstressed, ambulatory subject supports the diagnosis of Diabetes Mellitus. PERFORMED BY: [address] [place] [address] PATHOLOGIST SUPERVISOR BURLING [employer] JOINING MANDY ACUÑA M.D.Performed By: #### GLULS #### Point of Care testing ,Glucose [Mass/Vol]123 mg/dLHendry Regional Medical Center Physician GroupComment on above: Result Comment: Random Glucose Reference Range is dependent on time and content of last meal. Glucose of more than 200 mg/dL in a nonstressed, ambulatory subject supports the diagnosis of Diabetes Mellitus. PERFORMED BY: [facility] [address] [place] [address] PATHOLOGIST SUPERVISOR BURLING [employer] JOINING MANDY ACUÑA M.D.Performed By: #### ABG #### Point of Care testing ,Magnesiumon 54-49-5588Ocxikabbm [Mass/Vol]2.3 mg/dLNormal1.9-2.7The [facility] Physician GroupComment on above:Result Comment: PERFORMED BY: [place] [address] [place] [address] PATHOLOGIST SUPERVISOR BURLING [employer] JOINING MANDY ACUÑA M.D.Performed By: #### GLULS #### Point of Care testing ,Magnesium [Mass/volume] in Serum or PlasmaOrdered By: Daniel Garza on 12-11-2024 Magnesium [Mass/Vol]Magnesium [Mass/volume] in Serum or Plasma1.9-2.7FCincinnati VA Medical CenterNo Panel InformationOrdered By: Daniel Garza on 12-11-2024 Arterial Blood Base Excess-3.0 mmol/L-3.0-3.0[facility] Arterial Blood Oxygen Content6.9 mmol/L6.6-9.7FCincinnati VA Medical Center Arterial Blood Oxygen Rtfmsowcax95.1 %95.0-100.0[facility] Doctors HospitalArterial Blood Partial Pressure CO240.3 mm[Hg]35.0-45.0[facility] Doctors HospitalArterial Blood Partial Pressure O2126.0 mm[Hg]Critically high 80.0-100.0[facility] Doctors HospitalArterial Blood pH7.367.35-7.45 [facility] HospitalBlood Gas Critical ValueSee commentOhiohealth Doctors HospitalComment on above:Critical Value called on: 12/11/2024 at 04:26Blood Gas PEEP8 kaS5DKninjwoddOhiohealth Doctors HospitalBlood Gas Sample Site Left radialOhiohealth Doctors HospitalBlood Gas Set Respiration Rate18 [facility] HospitalBlood Gas Tidal Gkgrbw446 mLOhiohealth Doctors HospitalBlood Gas Ventilator ModeAcOhiohealth Doctors HospitalFiO255 %[facility] Doctors HospitalPhosphoruson 07-84-4617Hhextzlcb [Mass/Vol] 2.6 mg/dLNormal2.5-4.5The [facility] Physician GroupComment on above:Performed By: #### GLULS #### Point of Care testing ,Triglyceride [Mass/volume] in Serum or PlasmaOrdered By: Soco Beasley on 33-56-2963Uzkuifbubtku [Mass/Vol]Triglyceride [Mass/volume] in Serum or Plasma Ryev03-584OxwbzihjeOhiohealth Doctors HospitalComment on above:TRIG ATP III CLASSIFICATIONTRIG less than 150 mg/dL NormalTRIG 150-199 mg/dL Borderline highTRIG 200-500 mg/dL High TRIG greater than 500 mg/dL Very highStandard traceable to the Center for Disease Conrtrol and Prevention (CDC) test method. Triglycerideson 08-53-7195Shozrphybhvi [Mass/Vol]158 mg/qYGbxu08-416Zkz [facility] Physician GroupComment on above:Result Comment: TRIG ATP III CLASSIFICATION TRIG less than 150 mg/dL Normal TRIG 150-199 mg/dL Borderline high TRIG 200-500 mg/dL High TRIG greater than 500 mg/dL Very high Standard traceable to the Center for Disease Conrtrol and Prevention (CDC) test method. PERFORMED BY: [place] [address] PATHOLOGIST SUPERVISOR BURLING [employer] JOINING MANDY ACUÑA M.D.Performed By: #### TRIG #### [place] [address] USAX-ray reportOrdered By: Ryan Ugalde on 54-47-9799Ybpgb reportSELECT [facility]ICAL [facility] [place] [address] XRay Report Signed Patient: Julian Montaño MR#: [id number] : 1955 Acct:[id number] Age/Sex: 69 / F ADM Date: 5 Loc: Room: [address] [place] [address] Type: ADM IN Attending Dr: Daniel Garza [...] AM Dictation Location: RADIO-PC-22 Transcribed By: ANDREW 12/11/24832 Dictated By: Ryan Ugalde Jr, DO 12/11/24831 Signed By: 12/11/24 0833 [facility] Doctors HospitalXR chest 1V portableon 07-26-3365CI chest 1V portableSELECT MEDICAL [facility] [place] [address] [place] [address] XRay Report Signed Patient: Julian Montaño MR#: [id number] [birth year] : 1955 Acct:[id number] Age/Sex: 69 / F ADM Date: 12/09/24 Loc: Room: [address] [place] [address] Type: ADM IN Attending Dr: Daniel Garza MD Copies to: MD Soco Cruz MD Ordering Provider: Soco Beasely MD Date of Service: 12/11/24 XR/XR chest [...] AM Dictation Location: RADIO-PC-22 Transcribed By: ANDREW 12/11/24832 Dictated By: Ryan Ugalde Jr, DO 12/11/24831 Signed By: 12/11/24 33[facility] Physician GroupAmphetamine Screen Ql (U)Ordered By: Soco Beasley on 88-50-1635Hkajdnaetzze Ql (U)Amphetamines screenNegative [facility] Medical CenterArterial Blood Gason 41-83-7241LGY Base Excess- 2.9 mmol/LNormal-3.0-3.0The [facility] Physician GroupComment on above:Performed By: #### ABG #### Point of Care testing ,ABG Frac Inspired O250 %NormalThe [facility] Physician GroupComment on above: Performed By: #### ABG #### Point of Care testing ,ABG Oxygen Content6.8 mmol/LNormal6.6-9.7The [facility] Physician GroupComment on above:Performed By: #### ABG #### Point of Care testing ,ABG Oxygen Lwvzywqtjc64.3 %Hckfbo53.0-100.0The [facility] Physician GroupComment on above:Performed By: #### ABG #### Point of Care testing ,ABG AXE117.7 mm[Hg]Gxzffa04.0-45.0The [facility] Physician GroupComment on above:Performed By: #### ABG #### Point of Care testing ,ABG PEEP5 oaG90OmfdcjIji [facility] Physician GroupComment on above:Performed By: #### ABG #### Point of Care testing ,ABG PH7.34Low7.35-7.45The [facility] Physician [facility]oula HospitalComment on above:Performed By: #### ABG #### Point of Care testing ,ABG PO299.2 mm[Hg]Wmsdzy44.0-100.0The [facility] Physician GroupComment on above:Performed By: #### ABG #### Point of Care testing ,ABG TV450 mLNormalThe [facility] Physician GroupComment on above:Performed By: #### ABG #### Point of Care testing ,CO2 [Moles/Vol]24.0 mmol/CNgpxdn62.0-27.0The [facility] Physician GroupComment on above:Performed By: #### ABG #### Point of Care testing ,HCO3 (Bld) [Moles/Vol]22.7 mmol/LLow23.0-29.0The [facility] Group Comment on above:Performed By: #### ABG #### Point of Care testing ,Respiratory CriticalNormalThe [facility] Physician GroupComment on above:Result Comment: Critical Value called on: 12/10/2024 at 06:05 PERFORMED BY: [facility] [place] [address] PATHOLOGIST SUPERVISOR BURLING AND JOINING MANDY ACUÑA M.D.Performed By: #### ABG #### Point of Care testing ,Set Respiratory Vbzm44MoedgoNtrCaroMont Regional Medical Center - [facility] Holly Physician GroupComment on above: Performed By: #### ABG #### Point of Care testing ,VBG Draw SiteLeft RadialHendry Regional Medical Center Physician GroupComment on above: Performed By: #### ABG #### Point of Care testing ,Ventilator ModeACHendry Regional Medical Center Physician GroupComment on above:Performed By: #### ABG #### Point of Care testing ,ABG Base Excess-4.9 mmol/LLow-3.0-3.0The [facility] Physician GroupComment on above:Performed By: #### GLULS #### Point of Care testing ,ABG Frac Inspired O260 %NormalThe [facility] Physician GroupComment on above: Performed By: #### GLULS #### Point of Care testing ,ABG Oxygen Content6.8 mmol/LNormal6.6-9.7The [facility] Physician GroupComment on above:Performed By: #### GLULS #### Point of Care testing ,ABG Oxygen Yvabedkmss07.2 %Bemeip25.0-100.0The [facility] Physician GroupComment on above:Performed By: #### GLULS #### Point of Care testing ,ABG XJB222.5 mm[Hg]High35.0-45.0The [facility] Physician GroupComment on above: Performed By: #### GLULS #### Point of Care testing ,ABG PEEP5 znW02OjfvddLkeHendry Regional Medical Center Physician GroupComment on above:Performed By: #### GLULS #### Point of Care testing ,ABG PH7.28Low7.35-7.45The [facility] Physician GroupComment on above:Performed By: #### GLULS #### Point of Care testing ,ABG GZ0995.9 mm[Hg]Off scale high80.0-100.0The [facility] Physician GroupComment on above:Performed By: #### GLULS #### Point of Care testing ,ABG TV500 mLNormalThe [facility] Physician GroupComment on above:Performed By: #### GLULS #### Point of Care testing ,CO2 [Moles/Vol]23.3 mmol/OKlhjsl97.0-27.0The [facility] Physician GroupComment on above:Performed By: #### GLULS #### Point of Care testing ,HCO3 (Bld) [Moles/Vol]21.8 mmol/LLow23.0-29.0The [facility] Comment on above:Performed By: #### GLULS #### Point of Care testing ,Respiratory CriticalHendry Regional Medical Center Physician GroupComment on above:Result Comment: Critical Value called on: 12/10/2024 at 00:12 PERFORMED BY: [facility] [place] [address] PATHOLOGIST SUPERVISOR BURLING [employer] JOINING MANDY ACUÑA M.D.Performed By: #### GLULS #### Point of Care testing ,Set Respiratory Vfil02HhxentStjHendry Regional Medical Center Physician GroupComment on above: Performed By: #### GLULS #### Point of Care testing ,VBG Draw SiteRight RadialHendry Regional Medical Center Physician GroupComment on above: Performed By: #### GLULS #### Point of Care testing ,Ventilator ModeACHendry Regional Medical Center Physician GroupComment on above:Performed By: #### GLULS #### Point of Care testing ,Barbiturates [Presence] in Urine by Screen methodOrdered By: Soco Beasley on 03-37-1834Dlokwjdimtxh Screen Ql (U)Barbiturates [Presence] in Urine by Screen methodNegOhioHealth Hardin Memorial HospitalBenzodiazepines Screen Ql (U) Ordered By: Soco Beasley on 51-37-5610Aewtolxjhfmfqmc Ql (U)Benzodiazepines [Presence] in Urine by Screen methodHighNegOhioHealth Hardin Memorial HospitalBenzoylecgonine [Presence] in Urine by Screen methodOrdered By: Soco Beasley on 58-97-9856Hefltibukeydvsu Screen Ql (U)Benzoylecgonine [Presence] in Urine by Screen methodNegativeOhiohealth Doctors HospitalCannabinoids [Presence] in Urine by Screen methodOrdered By: Soco Beasley on 12-10-2024 Cannabinoids Screen Ql (U)Cannabinoids [Presence] in Urine by Screen method NegativeOhiohealth Doctors HospitalComment on above:These are unconfirmed results and should not be used for legal purposes. Drug Cut-Off Concentration: AMPH 1000 ng/mL MICHAEL 200 ng/mL JAVAN 200 ng/mL COCM 300 ng/mL OP 300 ng/mL PCP 25 ng/mL THC 20 ng/mLComplete Blood Count Auto Diffon 84-33-6110Pcknxpcft (Bld) [#/Vol]0.1 10*3/uLNormal0.0-0.2The [facility] Physician GroupComment on above: Result Comment: PERFORMED BY: [facility] [address] [place] [address] PATHOLOGIST SUPERVISOR BURLING [employer] JOINING MANDY ACUÑA M.D.Performed By: #### ABG #### Point of Care testing ,Basophils/100 WBC (Bld)0.5 %Normal.The [facility] Physician GroupComment on above:Performed By: #### ABG #### Point of Care testing ,Eosinophils (Bld) [#/Vol]0.0 10*3/uLNormal0.0-0.45The [facility] Comment on above:Performed By: #### ABG #### Point of Care testing ,Eosinophils/100 WBC (Bld)0.0 %Normal.The [facility] Physician GroupComment on above:Performed By: #### ABG #### Point of Care testing ,Erythrocyte distribution width (RBC) [Ratio]15.5 %High11.9-15.3The [facility] Physician GroupComment on above:Performed By: #### ABG #### Point of Care testing ,Hematocrit (Bld) [Volume fraction]31.0 %Low34.0-46.4The [facility] Physician GroupComment on above:Performed By: #### ABG #### Point of Care testing ,Hemoglobin (Bld) [Mass/Vol]10.1 g/dLLow11.8-15.4[facility] Comment on above:Performed By: #### ABG #### Point of Care testing ,Lymphocytes (Bld) [#/Vol]0.2 10*3/uLLow1.00-4.8[facility] Comment on above:Performed By: #### ABG #### Point of Care testing ,Lymphocytes/100 WBC (Bld)1.2 %Normal.The [facility] Physician GroupComment on above:Performed By: #### ABG #### Point of Care testing ,MCH (RBC) [Entitic mass]28.4 jpBydluc65.7-34.3The [facility] Comment on above:Performed By: #### ABG #### Point of Care testing ,MCV (RBC) [Entitic vol]86.7 xVVzxdrn55-481Kwi [facility] Physician GroupComment on above:Performed By: #### ABG #### Point of Care testing ,Mean Corpuscular HGB Conc32.7 g/mWZctniq68.0-35.0[facility] Comment on above:Performed By: #### ABG #### Point of Care testing ,Monocytes (Bld) [#/Vol]0.5 10*3/uLNormal0.0-0.8[facility] Comment on above:Performed By: #### ABG #### Point of Care testing ,Monocytes/100 WBC (Bld)3.1 %Normal.The [facility] Physician GroupComment on above:Performed By: #### ABG #### Point of Care testing ,Neutrophils (Bld) [#/Vol]14.4 10*3/uLHigh1.8-7.7[facility] Physician [facility] Comment on above:Performed By: #### ABG #### Point of Care testing ,Neutrophils/100 WBC (Bld)95.2 %Normal.The [facility] Physician GroupComment on above:Performed By: #### ABG #### Point of Care testing ,NRBC%0.0 /100{WBC}Normal0-0.5The [facility] Physician GroupComment on above: Performed By: #### ABG #### Point of Care testing ,Platelet mean volume (Bld) [Entitic vol]7.0 fLNormal6.3-10.7The [facility] Physician GroupComment on above:Performed By: #### ABG #### Point of Care testing ,Platelets (Bld) [#/Vol]236 10*3/kWNogwox154-875Etm [facility]ician [facility] Comment on above:Performed By: #### ABG #### Point of Care testing ,RBC (Bld) [#/Vol]3.57 10*6/uLLow3.60-5.00The [facility] Physician GroupComment on above:Performed By: #### ABG #### Point of Care testing ,WBC (Bld) [#/Vol]15.2 10*3/uLHigh3.8-11.6The [facility] Physician GroupComment on above:Performed By: #### ABG #### Point of Care testing ,Comprehensive Metabolic Panelon 76-72-7268Hhxvsix [Mass/Vol]3.4 g/dLLow3.5-5.7 The [facility] Physician GroupComment on above:Performed By: #### ABG #### Point of Care testing ,Albumin/Globulin [Mass ratio]1.5 {ratio}NormalThe [facility] Physician [facility] Comment on above:Performed By: #### ABG #### Point of Care testing ,ALP [Catalytic activity/Vol]69 U/NYwwhmn49-398Bgu [facility] Comment on above:Performed By: #### ABG #### Point of Care testing ,ALT [Catalytic activity/Vol]71 U/LHigh7-52The [facility] Physician GroupComment on above:Performed By: #### ABG #### Point of Care testing ,Anion gap [Moles/Vol]10.3 mmol/LNormal6.0-15.0[facility] Physician [facility] Comment on above:Performed By: #### ABG #### Point of Care testing ,AST [Catalytic activity/Vol]50 U/XIkdo51-55Pyo [facility] Physician GroupComment on above:Performed By: #### ABG #### Point of Care testing ,Bilirubin [Mass/Vol]0.4 mg/dLNormal0.3-1.0[facility] Physician GroupComment on above:Performed By: #### ABG #### Point of Care testing ,Calcium [Mass/Vol]7.0 mg/dLLow8.6-10.3The [facility] Physician GroupComment on above:Performed By: #### ABG #### Point of Care testing ,Chloride [Moles/Vol]101 mmol/IFxjztq15-575Ldb [facility] Physician GroupComment on above:Performed By: #### ABG #### Point of Care testing ,CO2 [Moles/Vol]22.0 mmol/QEpxsqb61.0-31.0The [facility] Physician GroupComment on above:Performed By: #### ABG #### Point of Care testing ,Creatinine [Mass/Vol]0.64 mg/dLNormal0.60-1.20[facility] Physician [facility] Comment on above:Performed By: #### ABG #### Point of Care testing ,Creatinine Clr Calc Dcshlfii71.14NoOhioHealthComment on above:Performed By: #### ABG #### Point of Care testing ,GFR/1.73 sq M.predicted MDRD (S/P/Bld) [Vol rate/Area]mL/min/{1.73_m2}NormalThe [facility] Physician GroupComment on above:Performed By: #### ABG #### Point of Care testing ,Globulin (S) [Mass/Vol]2.2 g/dLNoOhioHealthComment on above:Performed By: #### ABG #### Point of Care testing ,Glucose [Mass/Vol]151 mg/zFHrnt65-452Bhf [facility] Physician GroupComment on above:Result Comment: Random Glucose Reference Range is dependent on time and content of last meal. Glucose of more than 200 mg/dL in a nonstressed, ambulatory subject supports the diagnosis of Diabetes Mellitus. ADA recommended reference rangePerformed By: #### ABG #### Point of Care testing ,Potassium [Moles/Vol]3.3 mmol/LLow3.5-5.1The [facility] Physician GroupComment on above:Performed By: #### ABG #### Point of Care testing ,Protein [Mass/Vol]5.6 g/dLLow6.4-8.9The [facility] Physician GroupComment on above:Performed By: #### ABG #### Point of Care testing ,Sodium [Moles/Vol]130 mmol/MGrm872-390Tzu [facility] Physician GroupComment on above:Performed By: #### ABG #### Point of Care testing ,Urea nitrogen [Mass/Vol]14 mg/dLNormal7-25The [facility] Physician GroupComment on above:Performed By: #### ABG #### Point of Care testing ,Drug Screen,Urineon 74-72-1440Lxzbwspmpjr Screen,UrineNegativeNormalNegativeThe [facility] Physician GroupComment on above:Performed By: #### URDS #### [place] [address] USABarbiturate Screen,UrineNegativeNormalNegativeThe [facility] Physician GroupComment on above:Performed By: #### URDS #### [place] [address] USABenzodiazepines Screen,UrinePositiveHighNegativeThe [facility] Physician GroupComment on above:Performed By: #### URDS #### [place] [address] USACannabinoid Screen,UrineNegativeNormalNegativeThe [facility] Physician GroupComment on above:Result Comment: These are unconfirmed results and should not be used for legal purposes. Drug Cut-Off Concentration: AMPH 1000 ng/mL MICHAEL 200 ng/mL JAVAN 200 ng/mL COCM 300 ng/mL OP 300 ng/mL PCP 25 ng/mL THC 20 ng/mL PERFORMED BY: [place] [address] PATHOLOGIST SUPERVISOR [employer]URLING [employer] JOINING MANDY ACUÑA M.D.Performed By: #### URDS #### [facility] [address] [place] [address] USACocaine Screen,UrineNegativeNormalNegativeThe [facility] Physician GroupComment on above:Performed By: #### URDS #### [facility] [address] [place] [address] USAOpiate Screen,UrinePositiveHighNegativeThe [facility] Physician GroupComment on above:Performed By: #### URDS #### [facility] [address] [place] [address] USAPhencyclidine Screen,UrineNegativeNormalNegativeThe [facility] Physician GroupComment on above:Performed By: #### URDS #### [place] [address] USAECH echo transthoracicon 96-81-0020TPD echo transthoracic [facility] [place] [address] [place] [address] Echocardiogram Signed Patient: Julian Montaño MR#: [id number] [birth year] : 1955 Acct:[id number] Age/Sex: 69 / F ADM Date: 12/09/24 Loc: Room: [address] [place] [address] Type: ADM IN Attending Dr: Daniel Garza [...] 3.6 cm2 LUCA(V,D): 3.1 cm2 Transcribed By: SCV Performed At: 12/10/24 1142 Signed By: Gildardo Pastor MD 12/10/24 1712NormalThe [facility] Physician [facility] HospitalGlucose Poct Glucometerson 30-22-9714Nigglyc [Mass/Vol]135 mg/dL NormalThe [facility] Hospital Physician GroupComment on above:Result Comment: Random Glucose Reference Range is dependent on time and content of last meal. Glucose of more than 200 mg/dL in a nonstressed, ambulatory subject supports the diagnosis of Diabetes Mellitus. PERFORMED BY: [place] [address] PATHOLOGIST SUPERVISOR [employer]URL[employer] JOINING MANDY ACUÑA M.D.Performed By: #### GLULS #### Point of Care testing ,Magnesiumon 63-49-6714Qsqousndl [Mass/Vol]1.7 mg/dLLow1.9-2.7The [facility] Physician GroupComment on above:Result Comment: PERFORMED BY: [place] [address] PATHOLOGIST SUPERVISOR [employer]URL[employer] JOINING MANDY ACUÑA M.D.Performed By: #### URDS #### [place] [address] USAOpiates [Presence] in Urine by Screen methodOrdered By: Soco Beasley on 14-84-9655Pvsvilp Screen Ql (U)Opiates [Presence] in Urine by Screen methodHighNegOhioHealth Hardin Memorial HospitalPhencyclidine Screen Ql (U)Ordered By: Soco Beasley on 93-96-6312Dyesoycatbuil Ql (U)Phencyclidine [Presence] in Urine by Screen methodNegOhioHealth Hardin Memorial Hospital Troponin I High Sensitivityon 37-96-1230Jaofgvkz I High Yeaceclugim9888Lhh scale high0-15The [facility] Physician GroupComment on above:Result Comment: Critical Result : Called to and read back by: VIOLA KAY at: 12/10/2024 07:21:46 by:CELESTINA The Troponin units of report have been changed to meet the Chest Pain Accreditation requirement, element EC5.M1l2. Troponin units are changed from pg/ml to ng/L. Also, the decimal is removed and results are in whole numbers. PERFORMED BY: [place] [id number] PATHOLOGIST SUPERVISOR [employer] JOINING MANDY ACUÑA M.D.Performed By: #### GLULS #### Point of Care testing ,Troponin I.cardiac [Mass/volume] in Serum or Plasma by Detection limit <= 0.01 ng/Ordered By: Soco Beasley on 72-84-0110Vxxmjaqe I.cardiac DL <= 0.01 ng/mL [Mass/Vol]Troponin I.cardiac [Mass/volume] in Serum or Plasma by Detection limit <= 0.01 ng/Critically high0-15Ohiohealth Doctors HospitalComment on above:Critical Result : Called to and read back by: VIOLA KAY at: 12/10/2024 07:21:46 by:CELESTINAThe Troponin units of report have been changed to meet the Chest Pain Accreditation requirement, element EC5.M1l2. Troponin units are changed from pg/ml to ng/L. Also, the decimal is removed and results are in whole numbers.X-ray reportOrdered By: Ryan Ugalde on 95-17-1866Ddwbi report [facility] [place] [address] XRay Report Signed Patient: Julian Montaño MR#: [id number] : 1955 Acct:[id number] Age/Sex: 69 / F ADM Date: 5 Loc: Room: [address] [place] [address] Type: ADM IN Attending Dr: Soco Beasley MD Copies to: Soco Beasley MD~ Ordering Provider: Soco Beasley MD Date of Service: 12/10/24 XR/XR chest 1V portable: Intubated SINGLE VIEW CHEST CLINICAL HISTORY: Transfer from [place]. Following responsive. COMPARISON: Chest 12/09/2024 FINDINGS: Enteric tube tip below the level of the diaphragm. ET tube in satisfactory position. Heart appears normal in size. Bibasilar atelectasis/interstitial changes. No consolidation pneumothorax pleural effusion or free air. XR/XR chest 1V portable IMPRESSION: TUBES IN SATISFACTORY POSITIONS. BIBASILAR ATELECTASIS/INTERSTITIAL CHANGES. Impression dictated by: Ryan Ugalde Jr., D.O.12/10/2024 9:13 AM Dictation Location: RADIO-PC-23 Transcribed By: ANDREW 12/10/2413 Dictated By: Ryan Ugalde Jr, DO 12/10/24 0912 Signed By: 12/10/24 0913 [facility] Main [address] [address] XRay Report Signed Patient: Julian Montaño MR#: [id number] : 1955 Acct:[id number] Age/Sex: 69 / F ADM Date: 5 Loc: 4C Room: [address] [place] [address] Type: ADM IN Attending Dr: Soco Beasley [...] 8:33 AM Dictation Location: RADIO-PC-23 Transcribed By: ANDREW 12/10/24 0833 Dictated By: Ryan Ugalde Jr, DO 12/10/24 0831 Signed By: 12/10/24 0833 [facility] Doctors HospitalX-ray reportOrdered By: Torsten Toledo on 74-24-0108Zctkm [address] [address] XRay Report Signed Patient: Julian Montaño MR#: [id number] : 1955 Acct:[id number] Age/Sex: 69 / F ADM Date: 5 Loc: 4C Room: [address] [place] [address] Type: ADM IN Attending Dr: Soco Beasley [...] Torsten Toledo M.D.12/10/2024 8:31 AM Dictation Location: [place] [address] Transcribed By: [facility] 12/10/24830 Dictated By: Torsten Toledo MD 12/10/24 0829 Signed By: 12/10/24 0831 [facility] Work Phone: XR abdomen 1Von 55-38-7239IY abdomen 1V[facility] [place] [address] [place] [address] XRay Report Signed Patient: Julian Montaño MR#: [id number] [birth year] : 1955 Acct:[id number] Age/Sex: 69 / F ADM Date: 12/09/24 Loc: Room: [address] [place] [address] Type: ADM IN Attending Dr: Soco Beasley [...] 8:33 AM Dictation Location: RADIO-PC-23 Transcribed By: ANDREW 12/10/24 0833 Dictated By: Ryan Ugalde Jr DO 12/10/24 0831 Signed By: 12/10/24 0833[facility] Physician GroupXR chest 1V portableon 62-16-8117TZ chest 1V [facility] Main [place] [id number] XRay Report Signed Patient: Julian Montaño MR#: [id number] [birth year] : 1955 Acct:[id number] Age/Sex: 69 / F ADM Date: 12/09/24 Loc: Room: [address] [place] [address] Type: ADM IN Attending Dr: Soco Beasley MD Copies to: Soco Beasley MD Ordering Provider: Soco Beasley MD Date of Service: 12/10/24 XR/XR chest 1V portable: Intubated SINGLE VIEW CHEST CLINICAL HISTORY: Transfer from [place]. Following responsive. COMPARISON: Chest 12/09/2024 FINDINGS: Enteric tube tip below the level of the diaphragm. ET tube in satisfactory position. Heart appears normal in size. Bibasilar atelectasis/interstitial changes. No consolidation pneumothorax pleural effusion or free air. XR/XR chest 1V portable IMPRESSION: TUBES IN SATISFACTORY POSITIONS. BIBASILAR ATELECTASIS/INTERSTITIAL CHANGES. Impression dictated by: Rocky Corral Jr..OLakeisha12/10/2024 9:13 AM Dictation Location: RADIO-PC-23 Transcribed By: ANDREW 12/10/24 0913 Dictated By: Ryan Ugaled Jr, DO 12/10/24 0912 Signed By: 12/10/24 0913[facility] Physician GroupXR chest 1V [facility] Main [address] [address] XRay Report Signed Patient: Julian Montaño MR#: [id number] [birth year] : 1955 Acct:[id number] Age/Sex: 69 / F ADM Date: 12/09/24 Loc: Room: [address] [place] [address] Type: ADM IN Attending Dr: Soco Beasley [...] Torsten Toledo M.D.12/10/2024 8:31 AM Dictation Location: [place] [address] Transcribed By: [facility] 12/10/24 0831 Dictated By: Torsten Toledo MD 12/10/24 0829 Signed By: 12/10/24 0831[facility] Physician GroupAerobic Cultureon 12-09-2024 Aerobic CultureLight Normal Respiratory Chase 2 Days Gram Stain Result 3+ White Blood Cells Rare Epithelial Cells 4+ Gram Positive Cocci in Chains AND PAIRS PERFORMED BY: [address] [address] PATHOLOGIST SUPERVISOR BURL[employer] JOINING MANDY ACUÑA M.D.NormalThe [facility] Hospital Physician GroupComment on above: Performed By: #### GLULS #### Point of Care testing ,Aerobic cultureOrdered By: Soco Beasley on 11-64-5675Ijyuvuoy identified Aer cx Nom (Unsp spec)Aerobic cultureOhiohealth Doctors HospitalAnisocytosis LM Ql (Bld)Ordered By: Soco Beasley on 46-34-7998Leflbnlvjccf Ql (Bld)Anisocytosis [Presence] in Blood by Light microscopyOhiohealth Doctors HospitalArterial Blood Gason 25-14-4189BWR Base Excess-4.7 mmol/LLow-3.0-3.0The [facility] Physician GroupComment on above:Performed By: #### ABG #### Point of Care testing ,ABG Frac Inspired O240 %NormalThe [facility] Physician GroupComment on above: Performed By: #### ABG #### Point of Care testing ,ABG Oxygen Content6.5 mmol/LLow6.6-9.7The [facility] Physician GroupComment on above:Performed By: #### ABG #### Point of Care testing ,ABG Oxygen Kxocsmcluj76.5 %Low95.0-100.0The [facility] Physician GroupComment on above:Performed By: #### ABG #### Point of Care testing ,ABG COS640.0 mm[Hg]Off scale high35.0-45.0The [facility] Physician GroupComment on above:Performed By: #### ABG #### Point of Care testing ,ABG PEEP5 fnS90GutpdjRfbMemorial Hospital Pembroke Physician GroupComment on above:Performed By: #### ABG #### Point of Care testing ,ABG PH7.23Low7.35-7.45The [facility] Physician GroupComment on above:Performed By: #### ABG #### Point of Care testing ,ABG PO266.7 mm[Hg]Low80.0-100.0The [facility] Physician GroupComment on above: Performed By: #### ABG #### Point of Care testing ,ABG TV450 mLNormalThe [facility] Physician GroupComment on above:Performed By: #### ABG #### Point of Care testing ,CO2 [Moles/Vol]25.1 mmol/VOvmsit35.0-27.0The [facility] Physician GroupComment on above:Performed By: #### ABG #### Point of Care testing ,HCO3 (Bld) [Moles/Vol]23.3 mmol/RXsffyu08.0-29.0[facility]ician [facility] Comment on above:Performed By: #### ABG #### Point of Care testing ,Respiratory CriticalNormMemorial Hospital Pembroke Physician GroupComment on above:Result Comment: Critical Value called on: 12/09/2024 at 21:27 PERFORMED BY: [address] [address] PATHOLOGIST SUPERVISOR [employer] JOINING MANDY ACUÑA M.D.Performed By: #### ABG #### Point of Care testing ,Set Respiratory Qmio48RntaduOkw[address] [place] [address] Physician GroupComment on above: Performed By: #### ABG #### Point of Care testing ,VBG Draw SiteLeft RadialHendry Regional Medical Center Physician GroupComment on above: Performed By: #### ABG #### Point of Care testing ,Ventilator ModeACHendry Regional Medical Center Physician GroupComment on above:Performed By: #### ABG #### Point of Care testing ,Band form neutrophils/100 WBC Manual cnt (Bld)Ordered By: Soco Beasley on 48-03-3882Ikbd form neutrophils/100 WBC (Bld)Peripheral white blood cell differential % bands, microscopic examHighland-Clarksburg Hospital[address] Blood Cultureon 89-53-9035Bchuyrkn identified Cx Nom (Bld)NO GROWTH 5 DAYS PERFORMED BY: [address] [address] PATHOLOGIST SUPERVISOR [employer] JOINING MANDY ACUÑA M.D.[facility] Physician GroupComment on above: Performed By: #### GLULS #### Point of Care testing ,Bacteria identified Cx Nom (Bld)NO GROWTH 5 DAYS PERFORMED BY: [address] [address] PATHOLOGIST SUPERVISOR [employer] JOINING MANDY ACUÑA M.D.[facility] Physician GroupComment on above: Performed By: #### GLULS #### Point of Care testing ,[place] cells [Presence] in Blood by Light microscopyOrdered By: Soco Beasley on 38-03-6003Drsc cells LM Ql (Bld)[place] cells [Presence] in Blood by Light microscopyOhiohealth Doctors HospitalComprehensive Metabolic Panelon 76-14-5014Vdnpwgy [Mass/Vol]3.6 g/dLNormal3.5-5.7The [facility] Comment on above:Performed By: #### ABG #### Point of Care testing ,Albumin/Globulin [Mass ratio]1.6 {ratio}NormalThe [facility] Comment on above:Performed By: #### ABG #### Point of Care testing ,ALP [Catalytic activity/Vol]78 U/KIfozxe07-841Dbx [facility] Comment on above:Result Comment: PERFORMED BY: [facility] [place] [address] PATHOLOGIST SUPERVISOR [employer]URLING [employer] JOINING MANDY ACUÑA M.D.Performed By: #### ABG #### Point of Care testing ,ALT [Catalytic activity/Vol]82 U/LHigh7-52The [facility] Physician GroupComment on above:Performed By: #### ABG #### Point of Care testing ,Anion gap [Moles/Vol]8.6 mmol/LNormal6.0-15.0The [facility] Physician [facility] Comment on above:Performed By: #### ABG #### Point of Care testing ,AST [Catalytic activity/Vol]61 U/JDfcm24-57Xhd [facility] Physician GroupComment on above:Performed By: #### ABG #### Point of Care testing ,Bilirubin [Mass/Vol]0.4 mg/dLNormal0.3-1.0The [facility] Physician GroupComment on above:Performed By: #### ABG #### Point of Care testing ,Calcium [Mass/Vol]7.1 mg/dLLow8.6-10.3The [facility] Physician GroupComment on above:Performed By: #### ABG #### Point of Care testing ,Chloride [Moles/Vol]97 mmol/IKqg67-426Cuj [facility] Physician GroupComment on above:Performed By: #### ABG #### Point of Care testing ,CO2 [Moles/Vol]24.6 mmol/PFlwhor16.0-31.0The [facility] Physician GroupComment on above:Performed By: #### ABG #### Point of Care testing ,Creatinine [Mass/Vol]0.68 mg/dLNormal0.60-1.20The [facility] Physician [facility] Comment on above:Performed By: #### ABG #### Point of Care testing ,GFR/1.73 sq M.predicted MDRD (S/P/Bld) [Vol rate/Area]mL/min/{1.73_m2}NormalThe [facility] Physician GroupComment on above:Performed By: #### ABG #### Point of Care testing ,Globulin (S) [Mass/Vol]2.3 g/dLHendry Regional Medical Center Physician [facility] HospitalComment on above:Performed By: #### ABG #### Point of Care testing ,Glucose [Mass/Vol]186 mg/pFIhgl11-625Dbg [facility] Physician GroupComment on above:Result Comment: Random Glucose Reference Range is dependent on time and content of last meal. Glucose of more than 200 mg/dL in a nonstressed, ambulatory subject supports the diagnosis of Diabetes Mellitus. ADA recommended reference rangePerformed By: #### ABG #### Point of Care testing ,Potassium [Moles/Vol]3.2 mmol/LLow3.5-5.1The [facility] Physician GroupComment on above:Performed By: #### ABG #### Point of Care testing ,Protein [Mass/Vol]5.9 g/dLLow6.4-8.9The [facility] Physician [facility] HospitalComment on above:Performed By: #### ABG #### Point of Care testing ,Sodium [Moles/Vol]127 mmol/ZZgd710-782Abn [facility] Physician GroupComment on above:Performed By: #### ABG #### Point of Care testing ,Urea nitrogen [Mass/Vol]16 mg/dLNormal7-25The [facility] Physician [facility] HospitalComment on above:Performed By: #### ABG #### Point of Care testing ,Diff and CBCon 30-68-8649Irwxxpwetcvt Ql (Bld)SlightNoOhioHealthComment on above:Performed By: #### ABG #### Point of Care testing ,Band form neutrophils/100 WBC (Bld)27 %High0-5[facility] Comment on above:Performed By: #### ABG #### Point of Care testing ,Crenated RBCSlightHendry Regional Medical Center Physician GroupComment on above:Performed By: #### ABG #### Point of Care testing ,Erythrocyte distribution width (RBC) [Ratio]15.4 %High11.9-15.3The [facility] Physician GroupComment on above:Performed By: #### ABG #### Point of Care testing ,Hematocrit (Bld) [Volume fraction]33.0 %Low34.0-46.4The [facility] Physician GroupComment on above:Performed By: #### ABG #### Point of Care testing ,Hemoglobin (Bld) [Mass/Vol]10.7 g/dLLow11.8-15.4ThPower [facility] Comment on above:Performed By: #### ABG #### Point of Care testing ,Lymphocytes/100 WBC (Bld)0 %Vqe77-89Pjm [facility]ician GroupComment on above:Performed By: #### ABG #### Point of Care testing ,MCH (RBC) [Entitic mass]28.1 ptPntezc55.7-34.3[facility] Comment on above:Performed By: #### ABG #### Point of Care testing ,MCV (RBC) [Entitic vol]87.0 wBPptxqr06-018[facility] Physician GroupComment on above:Performed By: #### ABG #### Point of Care testing ,Mean Corpuscular HGB Conc32.3 g/cTOgxdvx68.0-35.0[facility] Comment on above:Performed By: #### ABG #### Point of Care testing ,MicrocytosisSlightNoCaroMont Regional Medical Center [facility] Physician GroupComment on above:Performed By: #### ABG #### Point of Care testing ,Monocytes/100 WBC (Bld)2 %Normal2-11[facility] Physician GroupComment on above:Performed By: #### ABG #### Point of Care testing ,Platelet EstimateNormalNormalHendry Regional Medical Center Physician GroupComment on above:Performed By: #### ABG #### Point of Care testing ,Platelet mean volume (Bld) [Entitic vol]6.9 fLNormal6.3-10.7The [facility] Physician GroupComment on above:Result Comment: PERFORMED BY: [place] [address] PATHOLOGIST SUPERVISOR [employer]ING [employer] JOINING MANDY ACUÑA M.D.Performed By: #### ABG #### Point of Care testing ,Platelet MorphologyNormalNormBaptist Medical Center South Physician GroupComment on above:Result Comment: PERFORMED BY: [place] [id number] PATHOLOGIST SUPERVISOR [employer] JOINING MANDY ACUÑA M.D.Performed By: #### ABG #### Point of Care testing ,Platelets (Bld) [#/Vol]236 10*3/cWAfzrdq758-677Nnh [facility] Comment on above:Performed By: #### ABG #### Point of Care testing ,PoikilocytosisSECU Health North Hospital Physician GroupComment on above: Performed By: #### ABG #### Point of Care testing ,PolychromasiaSECU Health North Hospital Physician GroupComment on above: Performed By: #### ABG #### Point of Care testing ,RBC (Bld) [#/Vol]3.80 10*6/uLNormal3.60-5.00[facility] Comment on above:Performed By: #### ABG #### Point of Care testing ,Segmented neutrophils/100 WBC (Bld)71 %Fkhe09-69Trb [facility] Comment on above:Performed By: #### ABG #### Point of Care testing ,WBC (Bld) [#/Vol]15.9 10*3/uLHigh3.8-11.6The [facility] Physician GroupComment on above:Performed By: #### ABG #### Point of Care testing ,ECG 12 lead ECGon 18-43-2538VCX 12 lead ECGSELECT [facility] Main [place] [id number] Electrocardiograph Report Signed Patient: Julian Montaño MR#: [id number] : 1955 Acct:[id number] Age/Sex: 69 / F ADM Date: 12/09/24 Loc: Room: [address] [place] [address] Type: ADM IN Attending Dr: Daniel Garza [...] block Abnormal ECG Confirmed by Krissy Cortez ([id number]) on 12/12/2024 12:01:02 AM Referred By: Electronically Signed By: Krissy Cortez Transcribed By: MUS Signed By Krissy Cortez MD [address] [place] [address] Physician GroupErythrocyte morphology finding [Identifier] in BloodOrdered By: Soco Beasley on 07-15-0159KNL morphology finding Nom (Bld)RBC morphologyOhiohealth Doctors HospitalGram Stainon 35-79-6488Gzammfvqtqc observation Gram stain Nom (Unsp spec)Gram Stain Result 3+ White Blood Cells Rare Epithelial Cells 4+ Gram Positive Cocci in Chains AND PAIRS PERFORMED BY: [place] [address] PATHOLOGIST SUPERVISOR [employer]URL[employer] JOINING MANDY CalvoThe [facility] Physician GroupComment on above: Performed By: #### GLULS #### Point of Care testing ,Gram stain microscopyOrdered By: Soco Beasley on 77-45-2849Tbjyfecumsy observation Gram stain Nom (Unsp spec)Gram stain microscopyOhiohealth Doctors HospitalLaboratory - Microbiology and Antimicrobial susceptibilityOrdered By: Soco Beasley on 07-17-8803Plbtqgau identified Cx Nom (Bld)NO GROWTH 5 DAYS [facility] Doctors HospitalBacteria identified Cx Nom (Bld)NO GROWTH 5 DAYSOhiohealth Doctors HospitalLactate [Moles/volume] in Serum or Plasma Ordered By: Soco Beasley on 65-98-8732Fbyjphk [Moles/Vol]Lactate [Moles/volume] in Serum or Plasma0.5-1.9Ohiohealth Doctors HospitalComment on above: Lactic Acid reference range has been updated to 0.5 1.9 mmol/L and the critical range of 2.0 or greater.Lactic Acidon 26-44-6453Muycgdt [Moles/Vol]1.4 mmol/L Normal0.5-1.9The [facility] Physician GroupComment on above:Result Comment: Lactic Acid reference range has been updated to 0.5 ? 1.9 mmol/L and the critical range of 2.0 or greater. PERFORMED BY: [address] [place] [address] PATHOLOGIST SUPERVISOR [employer] MANDY ACUÑA M.D.Performed By: #### GLULS #### Point of Care testing ,Lactate [Moles/Vol]1.3 mmol/LNormal0.5-1.9[facility] Physician [facility]oul[facility] HospitalComment on above:Result Comment: Lactic Acid reference range has been updated to 0.5 ? 1.9 mmol/L and the critical range of 2.0 or greater. PERFORMED BY: [facility] [address] [facility] [address]ENTERRiaL[place] [address] PATHOLOGIST SUPERVISOR [employer] MANDY ACUÑA M.D.Performed By: #### GLULS #### Point of Care testing ,Lymphocytes/100 WBC Manual cnt (Bld)Ordered By: Soco Beasley on 12-09-2024 Lymphocytes/100 WBC (Bld)Lymphocytes/100 leukocytes in Blood by Manual countLow 18-42Ohiohealth Doctors HospitalMicrocytes LM Ql (Bld)Ordered By: Soco Beasley on 77-75-0736Xpchlwaips Ql (Bld)Microcytes [Presence] in Blood by Light microscopyOhiohealth Doctors HospitalMonocytes/100 WBC Manual cnt (Bld) Ordered By: Soco Beasley on 11-89-7420Cumibgocg/100 WBC (Bld)Monocytes/100 leukocytes in Blood by Manual count2-11Ohiohealth Doctors HospitalPlatelet adequacy [Presence] in Blood by Light microscopyOrdered By: Soco Beasley on 13-41-1968Zmujirxjl LM Ql (Bld)Platelet adequacy [Presence] in Blood by Light microscopyNoCleveland Clinic South Pointe HospitalPlatelet morphology finding [Identifier] in BloodOrdered By: Soco Beasley on 95-75-1975Erncvvfk morphology finding Nom (Bld)Platelet morphology finding [Identifier] in BloodNormal [facility] Doctors HospitalPoikilocytosis [Presence] in Blood by Light microscopyOrdered By: Soco Beasley on 54-44-8967Ryqfygcmadhhmj LM Ql (Bld) Poikilocytosis [Presence] in Blood by Light microscopyOhiohealth Doctors HospitalPolychromasia [Presence] in Blood by Light microscopyOrdered By: Soco Beasley on 50-42-6919Oxvaexqmbiqcv LM Ql (Bld)Polychromasia [Presence] in Blood by Light microscopyMary Rutan Hospitalegmented neutrophils/100 WBC Manual cnt (Bld)Ordered By: Soco Beasley on 91-54-7816Ufjgupzib neutrophils/100 WBC (Bld)Manual blood segmented neutrophils/100 xxzwegocvtWxow52-48TiscxvpsjOhiohealth Doctors HospitalTriglycerideson 31-52-5848Ynyaioxsspvo [Mass/Vol]63 mg/dL Qpvlbb76-929Daf [facility] Physician GroupComment on above:Result Comment: TRIG ATP III CLASSIFICATION TRIG less than 150 mg/dL Normal TRIG 150-199 mg/dL Borderline high TRIG 200-500 mg/dL High TRIG greater than 500 mg/dL Very high Standard traceable to the Center for Disease Conrtrol and Prevention (CDC) test method. PERFORMED BY: [address] [place] [address] PATHOLOGIST SUPERVISOR [employer] JOINING MANDY ACUÑA M.D.Performed By: #### GLULS #### Point of Care testing ,Troponin I High Sensitivityon 34-55-0052Egleuibk I High Ejbkawopcyk9880Rdn scale high0-15The [facility] Physician GroupComment on above:Result Comment: Critical Result : Called to and read back by: VIOLA KAY at: 12/09/2024 23:07:02 by:GENA The Troponin units of report have been changed to meet the Chest Pain Accreditation requirement, element EC5.M1l2. Troponin units are changed from pg/ml to ng/L. Also, the decimal is removed and results are in whole numbers. PERFORMED BY: [facility] [place] [address] PATHOLOGIST SUPERVISOR [employer] JOINING MANDY ACUÑA M.D.Performed By: #### ABG #### Point of Care testing ,HbA1c (Bld) [Mass fraction]on 17-55-3137Nkvfbdvmhzxhkm and review of laboratory resultsNormalformerly [facility] Medical CenterLaboratory - Hematology and Cell countson 83-90-3088JxB9q (Bld) [Mass fraction]6.1 %[facility] TOMOSYNTHESIS SCREENING BIon 53-95-3594[address] [address] Mammography Report Signed Patient: JULIAN MONTAÑO MR#: [id number] : 1955 Acct:[id number] Age/Sex: 68 / F ADM Date: 01/16/24 Loc: MAMMO Attending Dr: Shaikh Gonzalo Hooker Ordering Physician: Shaikh Morro Sánchez Results: Date of Service: 01/16/24 Follow Up: Procedure(s): MM tomosynthesis screening BI Accession Number(s): [id number] cc: Shaikh Morro Sánchez Patient Name: JULIAN MONTAÑO MR#: [id number] : 1955 Exam Date: 01/16/2024 Ordering Doctor: [...] uterine cancer at age 53. LOCATION: [facility] BREAST COMPOSITION: Almost entirely fatty. FINDINGS: [...] M.D. Signed By: 01/16/24910 DD/ 9 TD/TT: Setup Technician:TBHRadiology, Radiologist, - 01/16/2024 [place] [address] Mammography Report Signed Patient: JULIAN MONTAÑO MR#: [id number] : 1955 Acct:[id number] Age/Sex: 68 / F ADM Date: 01/16/24 Loc: MAMMO Attending Dr: Shaikh Gonzalo Hooker Ordering Physician: Shaikh Morro Sánchez Results: Date of Service: 01/16/24 Follow Up: Procedure(s): MM tomosynthesis screening BI Accession Number(s): [id number] cc: Shaikh Morro Sánhcez Patient Name: JULIAN MONTAÑO MR#: [id number] : 1955 Exam Date: 01/16/2024 Ordering Doctor: [...] uterine cancer at age 53. LOCATION: [facility] BREAST COMPOSITION: Almost entirely fatty. FINDINGS: [...] M.D. Signed By: 01/16/24910 DD/ 9 TD/TT: Setup Technician: [facility] SystemRadiology Study observation (narrative)[facility] TOMOSYNTHESIS SCREENING BIOrdered By: Radiologist Radiology on 68-08-7637AVEX [employer] Work Phone: rt PULMONARY FUNCTION TESTon 44-46-6922[place]aj[place], [place] [address] Respiratory Report Signed Patient: JULIAN MONTAÑO MR#: [id number] : 1955 Acct:[id number] Age/Sex: 68 / F ADM Date: 12/12/23 Loc: CARD Attending Dr: Shaikh Gonzalo Hooker Ordering Physician: Shaikh Morro Sánchez Date of Service: 12/12/23 Procedure(s): RT pulmonary function test Accession Number(s): [id number] cc: [facility] Test Date: 2023-12-12 Pat Name: JULIAN MONTAÑO Department: Room: - Gender: Female Occupational Therapy Director: Zaina Albarado RRT : 1955 Requested By: [id number] Order Number: [id number] Yani MD: [place] Interpretive Statements Pulmonary [...] Dictated By: [place] D.O. Signed By: 12/21/2380112/21/23801 DD/ 9 TD/TT: Setup Technician:TBHRadiology, Radiologist, - 12/21/2023 [place] [address] Respiratory Report Signed Patient: JULIAN MONTAÑO MR#: [id number] : 1955 Acct:[id number] Age/Sex: 68 / F ADM Date: 12/12/23 Loc: CARD Attending Dr: Shaikh Gonzalo Hooker Ordering Physician: Shaikh Morro Sánchez Date of Service: 12/12/23 Procedure(s): RT pulmonary function test Accession Number(s): [id number] cc: [facility] Test Date: 2023-12-12 Pat Name: JULIAN MONTAÑO Department: Room: - Gender: Female Occupational Therapy Director: Zaina Albarado RRT : 1955 Requested By: [id number] Order Number: [id number] Reading MD: [place] Interpretive Statements Pulmonary [...] Dictated By: [place] D.O. Signed By: 12/21/2380112/21/23801 DD/ 0910 TD/TT: Setup Technician: SONI Saldana PULMONARY FUNCTION TESTOrdered By: Radiologist Radiology on 02-02-8338JTOI [employer] Work Phone: Neurology Forms- Texton 83-03-7370Woxcshvpk Forms- [id number]#1.00TIFFOur Lady of Mercy HospitalConsent for Treatmenton 41-40-4652Ynqnoew for Treatment [id number]#1.00TIFNorwalk Memorial HospitalRT PULMONARY FUNCTION TESTon 66-17-7728Rkaptdyaa Study observation (narrative)[facility] SystemPhysician Orderon 95-92-3371Jrkhgvzut Order [id number]#1.00TIFNorwalk Memorial HospitalMRI Brain w/ + w/o Contraston 18-24-4476YHS Brain w/ + w/o ContrastExam Date/Time: 11/30/2023 17:25 EST Reason for Exam: [...] Technical Comments [employer] Contrast amount in ml's: 6NormalUniversity Hospitals Health SystemMRI Spine Cervical w/o Contraston 07-24-1386UOR Spine Cervical w/o ContrastExam Date/Time: 11/30/2023 17:25 EST Reason for Exam: [...] Transcribed by: SANA Technologist: CORDELIA Technical Comments NoneNormalUniversity Hospitals Health SystemBUNon 39-81-9346Jxre nitrogen [Mass/Vol]17 mg/dLNormal5-[facility] Hospitals Health SystemComment on above:Performed By: #### [id number], [id number], [id number] #### [facility] [address] [place] [address]Mjtjgdk for Treatmenton 68-77-7809Pjjwzxz for Treatment [id number]#1.00TIFFNoGeorgetown Behavioral HospitalCreatinineon 86-27-8785Hzhmevdeiy [Mass/Vol]0.8 mg/dLNormal0.5-1.3[facility]itus Medical CenterComment on above:Performed By: #### [id number], [id number], [id number] #### [facility] [address] [place], [place] [address]EWA - MRI Screening Formon 74-87-5929SYE - MRI Screening Form [id number]#1.00TIFFNoGeorgetown Behavioral HospitaleGFRon 35-87-9043gNPG32 mL/min/1.73 y5Kflwyf>=59University Hospitals Health SystemComment on above:Order Comment: Order added by Discern Expert.Performed By: #### [id number], [id number], [id number] #### Dustin [facility] [address], [place] [address]Lnwrjvuzm Orderon 98-82-2637Lkjwgcwbg Order [id number]#1.00TIFNorwalk Memorial HospitalCBC AUTO DIFFon 46-54-6732WBSQ #0.1 103/ulNormal0.0-0.1[facility] HospitalComment on above:Performed By: #### CBC #### [facility] [address] [place] [address] [address] Stan AcevesBasophils/100 WBC (Bld)0.7 %Normal0.2-2.0[facility] Comment on above:Performed By: #### CBC #### [facility] [address] [place] [address] [address] Stan Anderson #0.1 103/ulNormal0.0-0.7The [facility]S HospitalComment on above: Performed By: #### CBC #### [facility] [address] [place] [address] [address] Stan Buenoosinophils/100 WBC (Bld)1.0 %Normal0.9-7.0[facility] Comment on above:Performed By: #### CBC #### [facility] [address] [place] [address] Dr. Stan Buenorythrocyte distribution width (RBC) [Ratio]16.8 %Critically high 11.0-15.0[facility] Mary[facility] HospitalComment on above:Performed By: #### CBC #### [facility] [address] [place] [address] Dr. Stan AcevesHematocrit (Bld) [Volume fraction]33.7 %Critically low36.0-48.0 [facility] HospitalComment on above:Performed By: #### CBC #### [facility] [address] [place] [address] Dr. Stan AcevesHemoglobin (Bld) [Mass/Vol]10.6 g/dLCritically low12.0-16.0The [facility] HospitalComment on above:Performed By: #### CBC #### [facility] [address] [place] [address] Dr. Stan Jewell #0.03 10e3/ulNormal0.00-0.03The [facility] HospitalComment on above:Performed By: #### CBC #### [facility] [address] [place] [address] Dr. Stan Jewell %0.3 %Normal0.0-0.5The [facility]S HospitalComment on above: Performed By: #### CBC #### [facility] [address] [place] [address] Dr. Stan BarrH #0.9 103/ulCritically low1.2-3.8The [facility] Comment on above:Performed By: #### CBC #### [facility] [address] [place] [address] Dr. Stan Jomphocytes/100 WBC (Bld)9.9 %Critically low20.5-60.0The [facility]S HospitalComment on above:Performed By: #### CBC #### [facility] [address] [place] [address] Dr. Stan Ramsey DIFF REQNONormalThe [facility]S HospitalComment on above: Performed By: #### CBC #### [facility] [address] [place] [address] Dr. Stan Garcia (RBC) [Entitic mass]25.7 pgCritically low26.7-34.0The [facility] HospitalComment on above:Performed By: #### CBC #### [facility] [address] [place] [address] Dr. Stan Garcia (RBC) [Mass/Vol]31.5 g/uRNfiomn87.9-35.2The [facility]S HospitalComment on above:Performed By: #### CBC #### [facility] [address] [place] [address] Dr. Satn Garcia (RBC) [Entitic vol]81.6 eMNkexhm86.0-99.0The [facility] HospitalComment on above:Performed By: #### CBC #### [facility] [address] [place] [address] Dr. Stan Izquierdo #0.7 103/ulNormal0.3-0.8The [facility]S HospitalComment on above:Performed By: #### CBC #### [facility] [address] [place] [address] Dr. Stan Elkinsocytes/100 WBC (Bld)7.3 %Normal1.7-12.0[facility] Comment on above:Performed By: #### CBC #### [facility] [address] [place] [address] Dr. Stan Borden #7.4 103/ulCritically high1.4-6.5The [facility] Comment on above:Performed By: #### CBC #### [facility] [address] [place] [address] Dr. Stan Gilliamutrophils/100 WBC (Bld)80.8 %Critically high43.0-75.0The [facility] HospitalComment on above:Performed By: #### CBC #### [facility] [address] [place] [address] Dr. Stan AcevesPlatelet mean volume (Bld) [Entitic vol]8.2 fLCritically low 9.5-13.5The [facility] HospitalComup health system on above:Performed By: #### CBC #### [facility] [address] [place] [address] Dr. Stan AcevesPLT396 103/luOzfddg615-324Wye [facility] HospitalComup health system on above: Performed By: #### CBC #### [facility] [address] [place] [address] Dr. Stan AcevesRBC4.13 106/ulCritically low4.20-5.40The [facility] on above:Performed By: #### CBC #### [facility] [address] [place] [address] Dr. Stan AcevesWBC9.2 103/ulNormal4.0-11.0The [facility] on above: Performed By: #### CBC #### [facility] [address] [place] [address] Dr. Stan AcevesGLYCOHEMOGLOBIN A1Con 59-03-5823UNW RECOMMENDATIONSEE BELOWNormUniversity Hospitals Ahuja Medical CenterComup health system on above:Result Comment: ADA RECOMMENDED LIMIT 4.0 - 6.0 ADA THERAPEUTIC TARGET < 7.0 ACTION SUGGESTED > 7.0Performed By: #### A1C #### [facility] [address] [place] [address] Dr. Stan AcevesGlucose [Mass/Vol]126 mg/dLNormalThVan Wert County Hospital on above:Performed By: #### A1C #### [facility] [address] [place] [address] Dr. Stan AcevesHbA1c (Bld) [Mass fraction]6.0 %Normal4.5-6.2The [facility] on above:Performed By: #### A1C #### [facility] [address] [place] [address] Dr. Stan Smith 48-92-7607Ebda [Mass/Vol]36.0 ug/dLCritically low 50.0-170.0The Ruth HospitalComment on above:Performed By: #### IRON #### [facility] [address] [address] [address] Stan Toribio, RAND URon 89-18-4519pYTU<1.3Normal<=30.0The [facility]S HospitalComment on above:Performed By: #### MALBR #### [facility] [address] [place] [address] [address] Stan Brown 14(COMP METB)on 43-36-5017Tyhzkss [Mass/Vol]3.5 g/dLNormal 3.4-5.0The [facility]S HospitalComment on above:Performed By: #### T4, CMP, TSH #### [facility] [address] [place] [address] Dr. Stan AcevesAlbumin/Globulin [Mass ratio]1.0 {ratio}NormalThe [facility]'S HospitalComment on above:Performed By: #### T4, CMP, TSH #### [facility] [address] [place] [address] Dr. Stan Skaggs [Catalytic activity/Vol]105 U/KIjeocb05-348Rtn [facility] Medical Centerment on above:Performed By: #### T4, CMP, TSH #### [facility] [address] [place] [address] Dr. Stan Pastrana [Catalytic activity/Vol]20 U/MWwauzb64-73Yjt [facility] Medical Centerment on above:Performed By: #### T4, CMP, TSH #### [facility] [address] [place] [address] Dr. Stan Hernandez gap [Moles/Vol]12.1 mmol/LNormalThe [facility] on above:Performed By: #### T4, CMP, TSH #### [facility] [address] [place] [address] Dr. Stna Denise [Catalytic activity/Vol]14 U/LCritically ojl42-81Joi [facility] HospitalComment on above:Performed By: #### T4, CMP, TSH #### [facility] [address] [place] [address] Dr. Stan AcevesBilirubin [Mass/Vol]0.3 mg/dLNormal0.2-1.0The [facility] Comment on above:Performed By: #### T4, CMP, TSH #### [facility] [address] [place] [address] Dr. Stan AcevesCalcium [Mass/Vol]9.1 mg/dLNormal8.5-10.1The [facility] Comment on above:Performed By: #### T4, CMP, TSH #### [facility] [address] [address] [address] Stan AcevesChloride [Moles/Vol]103 mmol/QBoryyb97-320Vxv [facility] Comment on above:Performed By: #### T4, CMP, TSH #### [facility] [address] [place] [address] Dr. Stan AcevesCO2 [Moles/Vol]26.8 mmol/LBtmjju60.0-32.0The [facility] Comment on above:Performed By: #### T4, CMP, TSH #### [facility] [address] [place] [address] Dr. Stan AcevesCreatinine [Mass/Vol]0.84 mg/dLNormal0.55-1.02The [facility]S HospitalComment on above:Performed By: #### T4, CMP, TSH #### [facility] [address] [place] [address] Dr. Stan BuenoGFR-AF BOTSWANAN>60Normal>=60The [facility]S HospitalComment on above:Performed By: #### T4, CMP, TSH #### [facility] [address] [place] [address] Dr. Stan BuenoGFR-NON AF BOTSWANAN>60Normal>=60The [facility] HospitalComment on above:Performed By: #### T4, CMP, TSH #### [facility] [address] [place] [address] Dr. Stan AcevesGlobulin (S) [Mass/Vol]3.6 g/dLNormalThe [facility] HospitalComment on above:Performed By: #### T4, CMP, TSH #### [facility] [address] [address] [address] Stan AcevesGlucose [Mass/Vol]84 mg/jUJvvugw98-218CgpC[facility] Clinic [facility] Hospital Comment on above:Performed By: #### T4, CMP, TSH #### [facility] [address] [place] [address] Dr. Stan AcevesPotassium [Moles/Vol]3.9 mmol/LNormal3.5-5.1The [facility] Comment on above:Performed By: #### T4, CMP, TSH #### [facility] [address] [place] [address] Dr. Stan AcevesProtein [Mass/Vol]7.1 g/dLNormal6.4-8.2The [facility] Comment on above:Performed By: #### T4, CMP, TSH #### [facility] [address] [place] [address] Dr. Stan AcevesSodium [Moles/Vol]138 mmol/BJyyxzg293-796Wcd [facility] Comment on above:Performed By: #### T4, CMP, TSH #### [facility] [address] [place] [address] Dr. Stan AcevesUrea nitrogen [Mass/Vol]12.0 mg/dLNormal7.0-18.0[facility] HospitalComment on above:Performed By: #### T4, CMP, TSH #### [facility] [address] [place] [address] Dr. Stan Golden nitrogen/Creatinine [Mass ratio]14.3 mg/mgNormalThe [facility] Children'S HospitalComment on above:Performed By: #### T4, CMP, TSH #### [facility] [address] [place] [address] Dr. Stan Shah4on [id number] [Mass/Vol]8.70 ug/dLNormal4.80-13.90The [facility]S HospitalComment on above:Performed By: #### T4, CMP, TSH #### [facility] [address] [place] [address] Dr. Stan Aden 29-71-4398SCE9.209 uIU/mLNormal0.358-3.740The [facility] Centerment on above:Performed By: #### T4, CMP, TSH #### [facility] [address] [address] [address] Stan Menjivar BRAIN WO W CONon [id number] BRAIN WO W CONEXAMINATION: MRI BRAIN WO W CON HISTORY: Benign [...] Electronically authenticated by: PATRICK PIERRE Date: 2022-04-27 10:[address] [place], [place] [address]CREATININEon 71-12-4540Weojldrrqr [Mass/Vol]0.91 mg/dLNormal 0.55-1.02The [facility]S HospitalComment on above:Performed By: #### CREA #### [facility] [address] [address] [address] Pierce ChangEGFR-AF BOTSWANAN>60Normal>=60The Ruth HospitalComment on above:Performed By: #### CREA #### [facility] [address] [place], [place] [address] Dr. Pierce ChangEGFR-NON AF BOTSWANAN>60Normal>=60The [facility]'S HospitalComment on above:Performed By: #### CREA #### [facility] [address] [place], [place] [address] Dr. 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 In the last year visit she had smallresidual disease in the cerebellopontine angle of about 5 mm x 10 mm. She is here for follow-up. 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 Nerve Neoplasm Right acoustic neuroma (225.1) (D33.3) [...] BY MOUTH EVERY week --take 30 MINUTES beforeBREAKFAST;Therapy: 16Pai0067 to Recorded Rx By: Zion; Dispense: 84 Days ; #:12; Refill: 0; ARIEL= N; Record; Last Updated By: Domenica Topete; 10/11/2017 1:16:16 PM Aller-Ease 180 MG Oral Tablet;Therapy: 16Sep2015 to Recorded Dispense: 0 Days ; #: Sufficient Tablet; Refill: 0; ARIEL = N; Record; Last Updated By: Beverley Covarrubias; 09/16/2015 1:32:00 PM Ammonium Lactate 12 % External Cream; APPLY TO THEAFFECTED AREA(S)topically TWICE DAILY;Therapy: 03Mar2017 to Recorded Rx By: Zion; Dispense: 30Days ; #:140; Refill: 0; ARIEL = N; Record; Last Updated By: Domenica Topete; 10/11/2017 1:16:16 PM Atorvastatin Calcium 40 MG Oral Tablet; TAKE 1 TABLET BY MOUTH DAILY ATBEDTIME;Therapy: 78Jfc4153 to Recorded Rx By: Zion; Dispense: 30 Days ; #:30; Refill: 0; ARIEL = N; Record; Last Updated By: Domenica Topete; 10/11/2017 1:16:16 PM Famotidine 20 MG Oral Tablet; TAKE 1 TABLET AT BEDTIME and TAKE 1 TABLET ASNEEDED during the day;Therapy: 91Try6455 to Recorded Rx By: Zion; Dispense: 30 Days ; #:60; Refill: 0; ARIEL = N; Record; Last Updated By: Domenica Topete; 10/11/2017 1:16:16 PM Fluticasone Propionate 50 MCG/ACT Nasal Suspension; INHALE 1 (ONE) SPRAY INEACH NOSTRIL EVERY DAY;Therapy: 32Yli9986if Recorded Rx By: Chalo; Dispense: 30 Days ; #:16; Refill: 0; ARIEL = N; Record; Last Updated By: Domenica Topete; 10/11/2017 1:16:16 PM Lisinopril 20 MG Oral Tablet;Therapy: 75Ige8182 to Recorded Rx By: GIANNA ISABEL; Dispense: 30 Days ; #:30; Refill: 0; ARIEL = N; Record; Last Updated By: Beverley Covarrubias; 09/16/2015 1:29:38 PM Meloxicam 7.5 MG Oral Tablet;Therapy: 55Zxw9003 to Recorded Rx By: GIANNA ISABEL; Dispense: 30 Days ; #:30; Refill: 0; ARIEL = N; Record; Last Updated By: Mc Winter; 08/20/2014 1:02:13 PM MetFORMIN HCl - 500 MG Oral Tablet;Therapy: 19Nov2014 to Recorded Rx By: GIANNA ISABEL; Dispense: 30 Days ; #:15; Refill: 0; ARIEL = N; Record; Last Updated By: Beverley Covarrubias; 09/16/2015 1: 29:38 PM Omeprazole 20 MG Oral Capsule Delayed Release; TAKE 1 CAPSULE IN THEMORNING at least ONE-HALF hour before breakfast,;Therapy: 02Oct2016 to Recorded Rx By: Zion; Dispense: 30 Days ; #:30; Refill: 0; ARIEL = N; Record; Last Updated By: Domenica Topete; 10/11/2017 1:16:16 PM Os-Christian Calcium + D3 500- 200 MG-UNIT Oral Tablet; TAKE 1 TABLET BY MOUTHEVERY DAY;Therapy: 03May2017 to Recorded Rx By: Chalo; Dispense: 30 Days ; #:30; Refill: 0; ARIEL = N; Record; Last Updated By: Domenica Topete; 10/11/2017 1:16:16 PM Oyster Shell Calcium/D 500- 200 MG-UNIT Oral Tablet; TAKE 1 TABLET BY MOUTHTWICE DAILY;Therapy: 06Jan2017 to Recorded Rx By: Zion; Dispense: 30 Days ; #:60; Refill: 0; ARIEL = N; Rec ord; Last Updated By: Domenica Topete; 10/11/2017 1:16:16 [...] Kit; use to test BLOOD SUGAR DAILY;Therapy: 16Iyg7804 to Recorded Rx By: Chalo; Dispense: 1 Days ; #:1; R efill: 0; ARIEL = N; Record; Last Updated By: Domenica Topete; 10/11/2017 1:16:16 PM Mauro-Michael Automatic;Therapy: 07Zaz5992 to Recorded Dispense: 30 Days ; #:1; Refill: 0; ARIEL = N; Record; Last Updated By: Rachel Contreras; 10/10/2013 3:23:22 PM Diagnoses/Problems Acoustic neuroma (225.1) (D33.3) Orders MRI IAC w/wo Contrast; Status:Hold For - Scheduling,Retrospective By ProtocolAuthorization; Requested for:15Sep2020; Perform:[facility]; Due:14Dec2020; Last Updated By:Carole Lanier; 09/26/2018 3:48:32 PM;Ordered; For:Acoustic neuroma; Ordered By:Shane Wilkerson;Radiologist to Determine Optimal Study : YWhat are the patient's signs and symptoms? : s/p CPA lesion resection Signatures Electronically signed by : Shane Wilkerson MD; Sep 26 2018 4:29PM EST (Author)NormalUH Touchworks Vital Signs Date TimeVital SignValuePerforming BcceeyisbDzrdpksn23-10-4451 13:29-0400Body .02 [place] Pack HOST/HOSTESS-C Work Phone: [phone] [place], [place] [address]56[address]10-30-2025 13:29-0400 Body ilqedyvjwfb24.1 [degF]La Pack HOST/HOSTESS-C Work Phone: 1(009)884-[address] [place], [place] [address]10-30-2025 13:29-0400 Diastolic blood bugywked92 mm[Hg]La Pack HOST/HOSTESS-C Work Phone: [facility]10-30-2025 13:29-0400 Heart rate69 /minLisa Dalehfariba HOST/HOSTESS-C Work Phone: [phone])437-[facility]10-30-2025 13:29-0400 Respiratory rate18 /minLisa Dalehholz HOST/HOSTESS-C Work Phone: 2(507)940-[address] [place], [place] [address]10-30-2025 13:29-0400 SaO2% (BldA) [Mass fraction]99 %La Aichholz HOST/HOSTESS-C Work Phone: 1(757)736-[address] [place], [place] [address]10-30-2025 13:29-0400 Systolic blood acvgdxrj611 mm[Hg]La Aichholz HOST/HOSTESS-C Work Phone: 1([phone])[address]10-09-2025 09:03-0400 Body .02 cmLisa Aichholz HOST/HOSTESS-C Work Phone: [phone])[address]10-09-2025 09:03-0400 Body mass index (BMI) [Ratio]26.7 kg/m2Lisa Aichholz HOST/HOSTESS-C Work Phone: 1([phone])[address]10-09-2025 09:03-0400 Body hzchwcyneis38.3 [degF]La Aichholz HOST/HOSTESS-C Work Phone: [phone])[address]10-09-2025 09:03-0400 Body dhczae38.54 kgLisa Aichholz HOST/HOSTESS-C Work Phone: 1(078)[address]10-09-2025 09:03-0400 Diastolic blood wwhretbo68 mm[Hg]La Aichholz HOST/HOSTESS-C Work Phone: 1(553)653-[address] [place], [place] [address]10-09-2025 09:03-0400 Heart rate84 /minLisa Aichholz HOST/HOSTESS-C Work Phone: 1(682)719-[address] [place], [place] [address]10-09-2025 09:03-0400 Inhaled oxygen flow rate3 L/minLisa Aichholz HOST/HOSTESS-C Work Phone: 1(483)099-[address] [place], [place] [address]10-09-2025 09:03-0400 Respiratory rate20 /minLisa Aichholz HOST/HOSTESS-C Work Phone: 1(293)108-[address] [place], [place] [address]10-09-2025 09:03-0400 SaO2% (BldA) [Mass fraction]98 %La Aichholz HOST/HOSTESS-C Work Phone: [facility]10-09-2025 09:03-0400 Systolic blood ibpzrvql50 mm[Hg]La Aichholz HOST/HOSTESS-C Work Phone: [facility]09-17-2025 11:02-0400 Body .02 cmLisa Aichholz HOST/HOSTESS-C Work Phone: 1(340)351-[address] [place], [place] [address]509-17-2025 11:02-0400 Body omnhkidovyy90.1 [degF]La Aichholz HOST/HOSTESS-C Work Phone: [phone])[address]09-17-2025 11:02-0400 Diastolic blood qgtjqwfa21 mm[Hg]La Aichholz HOST/HOSTESS-C Work Phone: 1(205)[address]09-17-2025 11:02-0400 Heart rate92 /minLisa Aichholz HOST/HOSTESS-C Work Phone: 1(192)484-[address] [place], [place] [address]109-17-2025 11:02-0400 Inhaled oxygen flow rate3 L/minLisa Aichholz HOST/HOSTESS-C Work Phone: [facility]09-17-2025 11:02-0400 Respiratory rate18 /minLisa Aichholz HOST/HOSTESS-C Work Phone: [facility]09-17-2025 11:02-0400 SaO2% (BldA) [Mass fraction]95 %La Aichholz HOST/HOSTESS-C Work Phone: [facility]09-17-2025 11:02-0400 Systolic blood ugqnyyuv18 mm[Hg]La Aichholz HOST/HOSTESS-C Work Phone: [facility]08-13-2025 10:26-0400 Body tfheeakaqdy95.4 [degF]La Aichholz HOST/HOSTESS Work Phone: 1([phone])547-[address] [place], [place] [address]Kdnblklvlt30-64-1013 10:26-0400Diastolic blood kgqcgdry20 mm[Hg]Al Aichholz HOST/HOSTESS Work Phone: [facility] SystemIusbwouyrl75-24-4822 10:26-0400Heart rate85 /min La Aichholz HOST/HOSTESS Work Phone: [address] [place] [address]Thctctrjvn55-65-6224 10:26-0400Respiratory rate20 /minLisa Aichholz HOST/HOSTESS Work Phone: [address] [address]Zobjahoxpo39-80-4381 10:26-5490VhT9% (BldA) [Mass fraction]96 %La Aichholz HOST/HOSTESS Work Phone: [address] [place] [address]Qaejuvuxbn39-34-1194 10:26-0400Systolic blood ehmijdab182 mm[Hg]La Aichholz HOST/HOSTESS Work Phone: [facility] SystemNrjpfjtjdg89-42-0974 10:08-0400Body mass index (BMI) [Ratio]25.05 kg/m2Lisa Aichholz HOST/HOSTESS Work Phone: [facility] SystemXyvzirgybo89-37-8299 10:08-0400Body temperature 98.1 [degF]La Aichholz HOST/HOSTESS Work Phone: [facility] SystemMijrhywxsx87-65-4888 10:08-0400Body vohoaq12.14 kgLisa Aichholz HOST/HOSTESS Work Phone: [facility] SystemGutwwybqpf99-97-5736 10:08-0400Diastolic blood gcupjbzh86 mm[Hg]La Aichholz HOST/HOSTESS Work Phone: [place] [address]Qureflzxzg91-12-4851 10:08-0400Heart rate80 /min La Aichholz HOST/HOSTESS Work Phone: [address] [address]Dvjvquqbdn18-48-6026 10:08-0400Respiratory rate20 /minLisa Aichholz HOST/HOSTESS Work Phone: [address] [address]Avvafrfiuq82-40-2264 10:08-6764YnV3% (BldA) [Mass fraction]97 %La Aichholz HOST/HOSTESS Work Phone: [facility] HealthcareComment on above:with 3L of 02 on 02-06-2025 10:08-0400Systolic blood udmuvcll087 mm[Hg]La Pack HOST/HOSTESS Work Phone: [facility] SystemFhdltwhcow21-97-2064 11:44-0400Body cm La Pack HOST/HOSTESS Work Phone: [facility] SystemTzfkalowrs17-02-7718 11:44-0400Body mass index (BMI) [Ratio]25.15 kg/m2La Martinezz HOST/HOSTESS Work Phone: [facility] SystemDdxvbsamks92-90-0632 11:44-0400Body temperature 97.81 [degF]La Pack HOST/HOSTESS Work Phone: [facility] SystemJbzragyvvd59-13-4183 11:44-0400Body wqropo76.41 kgLa Martinezz HOST/HOSTESS Work Phone: [facility] SystemLlawntdbte58-37-6600 11:44-0400Diastolic blood ydmfedch60 mm[Hg]La Martinezz HOST/HOSTESS Work Phone: [facility] SystemRndehgohsx58-06-4291 11:44-0400Heart rate98 /min La Pack HOST/HOSTESS Work Phone: [facility] SystemJovrirksjf42-41-1434 11:44-0400Respiratory rate24 /minLa Pack HOST/HOSTESS Work Phone: [place] [address]Jvfjpubgbg78-07-4929 11:44-2236LqS8% (BldA) [Mass fraction]97 %La Martinezz HOST/HOSTESS Work Phone: [address] [place] [address]Ekycqtsqcq29-20-6585 11:44-0400Systolic blood gxdbdxxu481 mm[Hg]La Martinezz HOST/HOSTESS Work Phone: [facility] SystemYhqavhibba37-50-1833 09:30-0500Body tyyzoz668 cm Ian Soares MD Work Phone: [facility] SystemBayvpthcpu80-01-3139 09:30-0500Body mass index (BMI) [Ratio]25.15 kg/m2Ian Soares MD Work Phone: [facility] SystemVjubdvqenm24-20-3342 09:30-0500Body temperature 96.6 [degF]Ian Soares MD Work Phone: [facility] SystemTwndwukrwz88-75-5992 09:30-0500Body jkursf56.41 kgIan Soares MD Work Phone: [facility] SystemElyggprynq27-06-0249 09:30-0500Diastolic blood xkicqwgj82 mm[Hg]Ian Soares MD Work Phone: [facility] SystemNfmmycwjbz61-67-2192 09:30-0500Heart rate85 /min Ian Soares MD Work Phone: [facility] SystemDdjxemuhgr19-76-2255 09:30-0500Respiratory rate22 /minIan Soares MD Work Phone: [facility] SystemVbrnxdwnzt64-08-8452 09:30-9927KeU8% (BldA) [Mass fraction]97 %Ian Soares MD Work Phone: [facility] SystemEdzhmrtbss13-30-1126 09:30-0500Systolic blood desrbivz564 mm[Hg]Ian Soares MD Work Phone: [facility] SystemSteyzlowud22-30-9284 09:09-0500Body enszxb919.02 cmBrnelsy Cardoso HOST/HOSTESS-C Work Phone: 1([phone])090-[address] [place], [place] [address]67502-21-2025 09:09-0500 Body mass index (BMI) [Ratio]24.7 kg/o4Ssadwnrq Cardoso HOST/HOSTESS-C Work Phone: [phone](544)975-[address] [place], [place] [address]67502-21-2025 09:09-0500 Body oeohxl89.5 kgBrnelsy Cardoso HOST/HOSTESS-C Work Phone: 1(317)233-[address] [place], [place] [address]502-21-2025 09:09-0500 Diastolic blood lumkpjub70 mm[Hg]Daniel Cardoso HOST/HOSTESS-C Work Phone: [facility]02-21-2025 09:09-0500 Heart rate82 /minBrittany Cardoso HOST/HOSTESS-C Work Phone: [facility]02-21-2025 09:09-0500 Inhaled oxygen flow rate3 L/minBrittany Cardoso HOST/HOSTESS-C Work Phone: [facility]02-21-2025 09:09-0500 Respiratory rate18 /minBrittany Cardoso HOST/HOSTESS-C Work Phone: [facility]02-21-2025 09:09-0500 SaO2% (BldA) [Mass fraction]97 %Daniel Cardoso HOST/HOSTESS-C Work Phone: [facility]02-21-2025 09:09-0500 Systolic blood dsllkezy709 mm[Hg]Daniel Silvazpatrick HOST/HOSTESS-C Work Phone: [facility]02-18-2025 13:20-0500 Body inrslvvsizd61.1 [degF]Stephen Furlong DO Work Phone: [facility]02-18-2025 13:20-0500Diastolic blood efwfapzi99 mm[Hg]Stephen Furlong DO Work Phone: [facility] [employer] Vbmcix33-89-5226 13:20-0500Heart rate 73 /minDennis Furlong DO Work Phone: [facility] HospitalInternet [facility] Incde [employer] Weadxg06-93-2744 13:20-0500 Respiratory rate16 /minDennis Furlong DO Work Phone: [facility]02-18-2025 13:20-6397WmO7% (BldA) [Mass fraction]96 %Stephen Furlong DO Work Phone: [facility]02-18-2025 13:20-0500Systolic blood nzfwywwa207 mm[Hg]Stephen Jassolong DO Work Phone: [facility]02-14-2025 14:56-0500Body bnskbhmqnre70.2 [degF]Stephen Jassolong DO Work Phone: [facility]02-14-2025 14:56-0500Diastolic blood mm[Hg]Stephenifrah Jassolong DO Work Phone: [facility]02-14-2025 14:56-0500Heart rate 79 /Alyis Romerolong DO Work Phone: [facility]02-14-2025 14:56-0500 Respiratory rate18 /Alyis Romerolong DO Work Phone: [facility]02-14-2025 14:56-2555VjE1% (BldA) [Mass fraction]96 %Stephen Jassolong DO Work Phone: [facility]02-14-2025 14:56-0500Systolic blood rvktsusj840 mm[Hg]Stephen Jassolong DO Work Phone: [facility] EastCloud[facility] Eytstb68-73-3592 17:23-0500Body mass index (BMI) [Ratio]24.03 kg/w1Crtayf Furlong DO Work Phone: [facility]02-11-2025 17:23-0500Body sjlhltwynme68.9 [degF]Stephen Jassolong DO Work Phone: [facility]02-11-2025 17:23-0500Body otsasd80.5 kgDenifrah Jassolong DO Work Phone: [facility]02-11-2025 17:23-0500Diastolic blood kmixunpb14 mm[Hg]Stephen Jassolong DO Work Phone: [facility]02-11-2025 17:23-0500Heart rate 94 /minDennis Furlong DO Work Phone: [facility] HospitalLahore [facility] [employer] [facility] Mwtqci93-24-9819 17:23-0500 Respiratory rate18 /minDennis Furlong DO Work Phone: [facility] EastCloud[facility] Technologies Vxeztf64-00-5295 17:23-5342EoC6% (BldA) [Mass fraction]93 %Stephen Furlong DO Work Phone: [facility] Tltoqc22-72-8341 17:23-0500Systolic blood gdtmdwqa358 mm[Hg]Stephen Furlong DO Work Phone: [facility] HospitalThe [employer]02-04-2025 19:16-0500Body idonhv031.6 cmDennis Furlong DO Work Phone: [facility] HospitalLah[facility] Snbrws82-03-0448 19:16-0500Body rgbyqocdzhd30.81 [degF]Stephen Furlong DO Work Phone: [facility] [employer] Ewtygc56-49-0530 19:16-0500Diastolic blood mm[Hg]Stephen Furlong DO Work Phone: [facility] HospitalThe [employer]02-04-2025 19:16-0500Heart rate 82 /minDennis Furlong DO Work Phone: [facility] EastCloud[facility] Elquci39-15-2903 19:16-0500 Respiratory rate18 /minDennis Furlong DO Work Phone: [facility]Cloud[facility] Xzneon55-45-8429 19:16-2937ZpU2% (BldA) [Mass fraction]92 %Stephen Furlong DO Work Phone: [facility] HospitalL[facility] Plnfid92-27-1120 19:16-0500Systolic blood mm[Hg]Stephen Furlong DO Work Phone: [facility]Cloud[facility] Aborvc03-84-8016 14:05-0500Heart rate 91 /Geo Cardoso HOST/HOSTESS-C Work Phone: 1(419)547-[address] [place], [place] [address]01-31-2025 14:05-0500 Respiratory rate18 /minBrittany Cardoso HOST/HOSTESS-C Work Phone: 1(893)[address]01-31-2025 09:25-0500 Body paptcdmcxjv25.5 [degF]Daniel Cardoso HOST/HOSTESS-C Work Phone: 1([phone])[address]01-31-2025 09:25-0500 Diastolic blood ojdrovsb27 mm[Hg]Daniel Cardoso HOST/HOSTESS-C Work Phone: 1(861)[address]01-31-2025 09:25-0500 Inhaled oxygen flow rate4 L/minBrittany Cardoso HOST/HOSTESS-C Work Phone: 1([phone])[address]01-31-2025 09:25-0500 SaO2% (BldA) [Mass fraction]90 %Daniel Cardoso HOST/HOSTESS-C Work Phone: 1(881)[address]01-31-2025 09:25-0500 Systolic blood wrkdipzm582 mm[Hg]Daniel Cardoso HOST/HOSTESS-C Work Phone: 1(571)[address]01-31-2025 06:00-0500 Body grpyxt42.3 kgBrittany Cardoso HOST/HOSTESS-C Work Phone: [phone])[address]161 [address]01-30-2025 17:05-0500 Body aohkdy570.56 cmBrittany Cardoso HOST/HOSTESS-C Work Phone: 1(048)915-[address] [place], [place] [address]01-28-2025 12:00-0500 Inhaled oxygen eizsvonboduhe59 %Daniel Cardoso HOST/HOSTESS-C Work Phone: 1([phone])[address]11-07-2024 09:43-0500 Body uyjexq289 cmBrittany Cardoso HOST/HOSTESS Work Phone: [facility] SystemAqdgsilvzu39-84-9922 09:43-0500Body mass index (BMI) [Ratio]24.13 kg/e7SzzfomtpDaniel Staffordk HOST/HOSTESS Work Phone: [facility] SystemHprjexuarg68-78-2342 09:43-0500Body temperature 96.69 [degF]Daniel Cardoso HOST/HOSTESS Work Phone: [facility] SystemTxlroikdyt15-26-8982 09:43-0500Body ukblbo50.78 kgDaniel Staffordk HOST/HOSTESS Work Phone: [facility] SystemVxevebchlj95-07-8621 09:43-0500Diastolic blood enplpywk27 mm[Hg]Daniel Staffordk HOST/HOSTESS Work Phone: [facility] [place]Szvvpcyubu76-38-2749 09:43-0500Heart rate85 /min Daniel Staffordk HOST/HOSTESS Work Phone: [facility] SystemRxvoewpfog14-68-5661 09:43-0500Respiratory rate18 /minDaniel Staffordk HOST/HOSTESS Work Phone: [facility] SystemClhhtxadzv40-06-5060 09:43-9080LeP5% (BldA) [Mass fraction]94 %Daniel Staffordk HOST/HOSTESS Work Phone: [facility] WashingtonZghwpfouam50-00-6703 09:43-0500Systolic blood mm[Hg]Daniel Staffordk HOST/HOSTESS Work Phone: [facility] Encounters Encounter DateEncounter TypeCare ProviderFacilityStart: 09-12-2025 End: 93-12-5714hmhlscixzjNvcu J Aichholz NP-C Work Phone: -[facility] ClydeStart: 09-12-2025 End: 59-39-0291Isuwuoc encounter procedureLisa Heath Pack HOST/HOSTESS-C-[facility] Work Phone: Start: 70-66-9720Nqh-patient / Non-visitLisa Heath Pack NP-C-[facility] Work Phone: Start: 08-22-2025 End: 21-35-6555kzxqrofuhjQhav Heath Crossfariba HOST/HOSTESS-C Work Phone: [facility] Work Phone: Start: 08-22-2025 End: 56-86-5889Jexcufk encounter procedureLisa Heath Pack HOST/HOSTESS-C-[facility] Work Phone: Start: 21-76-7342Tgo-patient / Non-visitLisa Heath Pack HOST/HOSTESS-C-[facility] Work Phone: Start: 07-31-2025 End: 57-67-4908aojfdjfdttGxqm J Americafariba HOST/HOSTESS-C Work Phone: [facility] Work Phone: Start: 07-31-2025 End: 62-36-3436Bbhzzon encounter procedureLisa Heath Huntercarmenfariba HOST/HOSTESS-C-[facility] Work Phone: Start: 84-39-8557Xnjcczy encounter procedureLi Ramone HOST/HOSTESS-C Work Phone: [facility]art: 07-10-2025 End: 13-55-5511Rumzstfgi Result EncounterLisa Dalehholz HOST/HOSTESS Work Phone: [facility] External Department UnsolicitedStart: 07-10-2025 End: 58-81-6011Nqcdahsaq Result EncounterLisa Dalehholz HOST/HOSTESS Work Phone: [facility] UnsolicitedStart: 06-26-2025 End: 42-81-1494Eereyu flowsheetLisa Dalehholz HOST/HOSTESS Work Phone: [facility] FMStart: 06-26-2025 End: 33-25-7585Hwfukl flowsheetLisa Dalehholz HOST/HOSTESS Work Phone: [facility] FMStart: 06-26-2025 End: 08-91-4663Bagmfq outpatient visit 25 minutesLisa Hunterhholz HOST/HOSTESS Work Phone: [facility] FMComment on above:Edema of both lower legs (Primary Dx); Primary hypertension ; Chronic obstructive pulmonary disease, unspecified COPD type ([facility]); Type 2 diabetes mellitus without complication, without long-term current use of insulin ([facility]); Cigarette nicotine dependence without complication; Depression, unspecified ; Generalized anxiety disorder ; Cellulitis of left lower extremityStart: 06-26-2025 End: 89-02-0943fnzrnkckzsGNBD AICHHOLZNot AvailableStart: 06-13-2025 End: 65-49-2558Pbdbre OnlyLa Pack HOST/HOSTESS Work Phone: [facility] FMComment on above:Iron deficiency (Primary Dx); Abnormal CBCStart: 06-07-2025 End: 48-36-9572VecsdsVdzt Naderer MD Work Phone: [facility] FMComment on above:Chronic obstructive pulmonary disease, unspecified COPD type ([facility])Start: 06-05-2025 End: 91-30-0187HgwatgZidg Aichholz HOST/HOSTESS Work Phone: [facility] FMComment on above:Primary hypertension (Primary Dx); Hyperlipidemia, unspecified ; Vitamin D deficiency; Type 2 diabetes mellitus without complications ([facility]); Gastro-esophageal reflux disease without esophagitis; Depression, unspecifiedStart: 05-06-2025 End: 82-86-9597AchfloFtmn Aichholz HOST/HOSTESS Work Phone: [facility] FMComment on above:Asthma with COPD (chronic obstructive pulmonary disease) ([facility])Start: [id number] encounter procedure [place] HOST/HOSTESS Work Phone: noms HealthcareStart: 04-01-2025 End: [id number] Aichholz HOST/HOSTESS Work Phone: [facility] CWM FMComment on above:Depression, unspecified ([facility]/HCC)Osteoarthritis, unspecified osteoarthritis type, unspecified site (Primary Dx)Start: 03-25-2025 End: [id number] Result EncounterLisa Aichholz HOST/HOSTESS Work Phone: noms External Department UnsolicitedStart: 03-25-2025 End: 22-81-1687Yndiwzmol Result EncounterLisa Aichholz HOST/HOSTESS Work Phone: noms External Department UnsolicitedStart: 03-25-2025 End: 03-10-3089Eqblnm OnlyLisa Dalehholz HOST/HOSTESS Work Phone: [facility] C[facility] FMComment on above:Acquired hypothyroidism (CMS/HCC) (Primary Dx)Start: 02-25-2025 End: 03-38-5895DyqiwuNhew Naderer MD Work Phone: noms CWM FMComment on above:Asthma with COPD (chronic obstructive pulmonary disease) (CMS/HCC); Chronic obstructive pulmonary disease, unspecified COPD type (CMS/HCC)Start: 02-21-2025 End: 46-98-0311Iunvhzotz Result EncounterGeneric External Data ProviderNOMS External Department UnsolicitedStart: 02-21-2025 End: 42-77-6452Dlxavdvgn Result EncounterGeneric External Data ProviderNOMS External Department UnsolicitedStart: 02-20-2025 End: 06-79-0758LupdjuZuyg Aichholz HOST/HOSTESS Work Phone: noms CWM FMComment on above:Iron deficiency anemia due to chronic blood lossStart: 02-19-2025 End: 96-31-5250Joksvo OnlyLisa Dalehholz HOST/HOSTESS Work Phone: noms CWM FMComment on above:Elevated TSHStart: 02-18-2025 End: 36-47-6364Sapkfzbzf Result EncounterLisa Aichholz HOST/HOSTESS Work Phone: noms External Department UnsolicitedStart: 02-18-2025 End: 00-07-3388Heeeoaunv Result EncounterLisa Aichholz HOST/HOSTESS Work Phone: noms External Department UnsolicitedStart: 02-06-2025 End: 24-29-6706Dnblmd outpatient visit 25 minutesLisa Pack HOST/HOSTESS Work Phone: noMS CWM FMComment on above:Type 2 diabetes mellitus without complication, without long-term current use of insulin (CMS/HCC) (P rimary Dx); Chronic obstructive pulmonary disease, unspecified COPD type (CMS/HCC); Primary hypertension (CMS/HCC); Vitamin D deficiency; Iron deficiency anemia due to chronic blood loss; Cigarette nicotine dependence without complication; Recurrent major depressive disorder, in full remission (CMS/HCC); Generalized anxiety disorder (CMS/HCC); Screening mammogram, encounter for; Other hyperlipidemia (CMS/HCC); Acute hypoxic respiratory failure (CMS/HCC)Start: 02-06-2025 End: 88-91-5781fczziuqagmJZNA DALEHHOLZNot AvailableStart: 01-23-2025 End: 07-16-5064Ophokm outpatient visit 25 minutesLisa Pack HOST/HOSTESS Work Phone: noms CWM FMComment on above:Scalp laceration, sequela (Primary Dx); Cigarette nicotine dependence without complication; COPD exacerbation (CMS/HCC)Start: 01-23-2025 End: 63-23-5492tnqzknioajTFMQ DALEHHOLZNot AvailableStart: 01-14-2025 End: 06-50-9602Ijwkzzyanelis Soares MD Work Phone: noms CWM FMStart: 01-14-2025 End: 86-05-1686Axhrvzbeth Soares MD Work Phone: NOMS CWM FMStart: 01-14-2025 End: 51-80-3784Pgdgfmcyfyiw care manage srvc 14 day dischargeIan Soares MD Work Phone: noms CWM FMComment on above:Influenza A (Primary Dx); Chronic obstructive pulmonary disease, unspecified COPD type (CMS/HCC); Acute hypoxic respiratory failure (CMS/HCC); Type 2 diabetes mellitus without complication, without long-term current use of insulin (CMS/HCC); Primary hypertension (CMS/HCC); Benign neoplasm of cranial nerves (CMS/HCC); Type 2 diabetes mellitus with diabetic polyneuropathy ([facility]/HCC)Start: 01-14-2025 End: 80-44-9934dhluqyosrgCWCO ANGLERNot AvailableStart: 01-04-2025 End: 05-20-9570fpwjbybnauVpbzdjwz Fer Cardoso HOST/HOSTESS-C Work Phone: [facility] Work Phone: Start: 01-04-2025 End: 06-21-7784Iwjswvm encounter procedureDaniel Cardoso HOST/HOSTESS-C Work Phone: [facility] Work Phone: Start: 01-01-2025 End: 99-45-1598mbrsooxcwiYxwxos G Furlong DO Work Phone: [facility] Medicine - Family MedicineComment on above:Acute hypoxic respiratory failure ([facility]-HCC) (Primary Dx); Aspiration pneumonia, unspecified aspiration pneumonia type, unspecified laterality, unspecified part of lung ([facility]-HCC); Chronic obstructive pulmonary disease, unspecified COPD type ([facility]); Influenza A; Type 2 diabetes mellitus without complication, without long-term current use of insulin ([facility]); Other abnormalities of gait and mobility; AnxietyStart: 12-28-2024 End: 32-32-3289vmqnmpqrkmNrhuza Elfego Mcaias DO Work Phone: [facility] Internal Medicine - Family MedicineComment on above:Acute hypoxic respiratory failure ([facility]-HCC) (Primary Dx); Chronic obstructive pulmonary disease, unspecified COPD type ([facility]-HCC); Influenza A; Other abnormalities of gait and mobilityStart: 12-25-2024 End: 75-99-2160lcizbjbawzBrhwfj Elfego Jassolong DO Work Phone: [facility] Internal Medicine - Family MedicineComment on above:Chronic obstructive pulmonary disease, unspecified COPD type ([facility]-HCC) (Primary Dx); Influenza A; Other abnormalities of gait and mobility; Anxiety; Cigarette smokerStart: 12-18-2024 End: 29-63-1072jhirvimzbkRbgsbh G Romerolong DO Work Phone: [facility] Internal Medicine - Family MedicineComment on above:Acute hypoxic respiratory failure ([facility]-HCC) (Primary Dx); Chronic obstructive pulmonary disease, unspecified COPD type ([facility]); Influenza A; Aspiration pneumonia, unspecified aspiration pneumonia type, unspecified laterality, unspecified part of lung ([facility]); Depression, unspecified depression type; Cigarette smoker; Type 2 diabetes mellitus without complication, without long-term current use of insulin ([facility]); AnxietyStart: 07-50-3911Qbh-patient / Non-visitBrittany Cardoso HOST/HOSTESS-C Work Phone: [facility] Work Phone: Start: 40-50-8119Hmz-patient / Non-visitBrittany Cardoso HOST/HOSTESS-C Work Phone: [facility] Pulmonary Work Phone: Start: 09-27-3651Wyz-patient / Non-visitBrittany Cardoso HOST/HOSTESS-C Work Phone: [facility] Cardiology Work Phone: Start: 29-13-9386Tkz-patient / Non-visitBrittany Cardoso HOST/HOSTESS-C Work Phone: [facility] Work Phone: Start: 12-09-2024 End: 64-32-9942Vkanwsvfjt and management of inpatientBrittany Cardoso HOST/HOSTESS-C Work Phone: [facility] [place] [facility] Work Phone: Start: 12-09-2024 End: 07-87-0523mawrutuzeiCVXXNGK PROVIDERFacility:METROHealthStart: 12-09-2024 End: 31-65-3584Lytxpjuti Result EncounterGeneric External Data ProviderNOMS External Department UnsolicitedStart: 12-09-2024 End: 96-35-2195Bfblircyw Result EncounterGeneric External Data ProviderNOMS External Department UnsolicitedStart: 12-06-2024 End: 75-96-7358AamtrsOqwx Howard MANOMS CWM FMComment on above:Iron deficiency anemia due to chronic blood lossStart: 11-27-2024 End: 21-59-9084ZuvrloYasg Wayne VASQUEZ CWM FMComment on above:Asthma with COPD (chronic obstructive pulmonary disease) ([facility])Start: 11-12-2024 End: 33-24-8382VulfauQclcfcry Cardoso HOST/HOSTESS Work Phone: NOGE CWM FMComment on above:Iron deficiency anemia due to chronic blood lossStart: 10-22-2024 End: 04-46-3801MeaahzFntvpibn Cardoso HOST/HOSTESS Work Phone: noms CWM FMComment on above:Gastro-esophageal reflux disease without esophagitisStart: 10-22-2024 End: 39-00-1000WjpkvmDiprkqdf Cardoso HOST/HOSTESS Work Phone: noms CWM FMComment on above:Depression, unspecified ([facility])Start: 09-20-2024 End: 73-55-6986Mljmmk flowsheetBrittany Cardoso HOST/HOSTESS Work Phone: NOIG CWM FMStart: 09-20-2024 End: 54-36-6442Ftjope flowsheetBrittany Cardoso HOST/HOSTESS Work Phone: NOMS CWM FMStart: 09-20-2024 End: 48-41-9393Sgudwr outpatient visit 15 minutesBrittany Cardoso HOST/HOSTESS Work Phone: NOMS CWM FMComment on above:Primary hypertension ([facility]) (Primary Dx); Type 2 diabetes mellitus without complication, without long-term current use of insulin ([facility]); Other hyperlipidemia ([facility]); Asthma with COPD (chronic obstructive pulmonary disease) ([facility]); Non-recurrent acute serous otitis media of left earStart: 09-20-2024 End: 31-19-9934ojbhqhrmduFDWRAKWCAna Paula Carroll AvailableStart: 09-11-2024 End: 68-53-1752RinukgVacfhmcdConchis Cardoso HOST/HOSTESS Work Phone: noms CWM FMComment on above:Type 2 diabetes mellitus without complications (CMS/HCC)Hyperlipidemia, unspecified (CMS/HCC)Other bursitis of elbow, left elbowStart: 09-03-2024 End: 45-45-1358DdwotiHcgfhoq EllykinsNOMS CWM FMComment on above:Asthma with COPD (chronic obstructive pulmonary disease) (CMS/HCC)Start: 08-27-2024 End: 60-86-4851QdgmbeUigdilmdConchis Cardoso HOST/HOSTESS Work Phone: noms CWM FMComment on above:Asthma with COPD (chronic obstructive pulmonary disease) (CMS/HCC)Start: 08-01-2024 End: 17-31-4258JzicsqDssqzo Chanel MANOMS CWM IMComment on above:Hyperlipidemia, unspecified (CMS/HCC); Other bursitis of elbow, left elbow; Depression, unspecified (CMS/HCC); Type 2 diabetes mellitus without complications (CMS/HCC)Start: 07-25-2024 End: 50-27-4438UyfewbXuvmcw Chanel MANOMS CWM IMComment on above:Other bursitis of elbow, left elbowStart: 07-23-2024 End: 03-26-5333EjzbmuDhwjcgkgConchis Cardoso HOST/HOSTESS Work Phone: noms CWM FMComment on above:Type 2 diabetes mellitus without complications (CMS/HCC); Hyperlipidemia, unspecified (CMS/HCC)Start: 07-07-2024 End: 90-03-9153Hrpvvmani Cardoso HOST/HOSTESS Work Phone: noms CWM FMComment on above:Iron deficiency anemia due to chronic blood loss (Primary Dx)Start: 01-16-2024 End: 22-80-9635Mcnxzjlnrcriselda Sánchez MD Work Phone: noms External Department UnsolicitedStart: 01-16-2024 End: 49-89-2579Wyknjprra Result EncounterSservando Sánchez MD Work Phone: noms External Department UnsolicitedStart: 12-15-2023 End: 76-73-9965atttzuofrbSaljjiq LiamFacility:FTMCStart: 12-15-2023 End: 79-81-4957Whccjou encounter procedureZamzam Wheeler [facility] Start: 12-12-2023 End: 63-33-1278Yyeewygoy Result EncounterSservando Sánchez MD Work Phone: noms External Department UnsolicitedStart: 12-12-2023 End: 17-12-3874Mtutyevcb Result EncounterSservando Sánchez MD Work Phone: noms External Department UnsolicitedStart: 11-30-2023 End: 07-30-0950etmkkwqyojEzfnoqa LiamFacility:FTMCStart: 10-28-2023 End: 92-09-6778Mxi-admission assessmentZamzam Wheeler [facility] Start: 01-05-2023 End: 80-13-6619tsxejrkcxxOF GIANNA TARA AMBURNFacility:F4Pwldf: 04-26-2022 End: 09-55-4971lqtzlsyhguQA GIANNA TARA AMBURNFacility:B5Zwkwg: 04-08-2022 End: 22-91-1378fprmkximgxWG GIANNA TARA AMBURNFacility:H1 Procedures DateProcedureProcedure DetailPerforming ClinicianStart: 65-74-7107NGS CBC WITH AUTO DIFFLisa Aicrosalee HOST/HOSTESS Work Phone: Start: 47-97-1572TLW THYROID STIM HORMONELisa Ramone HOST/HOSTESS Work Phone: start: 84-51-9441KST THYROXINE (T4) FREELa Pack HOST/HOSTESS Work Phone: Start: 43-08-6945JR ORLY PERF SPECT REST STRGeneric External Data ProviderStart: 36-05-6302NX TOMOSYNTHESIS SCREENING BILisa Ramone HOST/HOSTESS Work Phone: [phone]: 13-44-8800PFT CBC WITH AUTO DIFFLisa Ramone HOST/HOSTESS Work Phone: [phone]: 73-07-8894OsufvyzlzvtTvnt Ramone HOST/HOSTESS Work Phone: Start: 37-98-7533Orkyf chest X-rayBrittany Cardoso HOST/HOSTESS-C Work Phone: Start: 52-44-3957Xatrh chest X-rayBrittany Cardoso HOST/HOSTESS-C Work Phone: Start: 72-51-4756Bmcks X-ray abdomenBrittany Cardoso HOST/HOSTESS-C Work Phone: Start: 53-09-9905Vdsow chest X-rayBrittany Cardoso HOST/HOSTESS-C Work Phone: Start: 02-89-3844ENJUI CULTURE 2Generic External Data ProviderStart: 97-83-1667Hovbdoc microbial cultureBrittany Cardoso HOST/HOSTESS-C Work Phone: Start: 84-32-1332Hprdwwdi identified in Blood by CultureBrittany Cardoso HOST/HOSTESS-C Work Phone: Start: 39-06-7899Trgz stain microscopyBrittany Cardoso HOST/HOSTESS-C Work Phone: Start: 92-37-6634Jcvhsrjjca glycosylated c3hOzlyavza Cardoso HOST/HOSTESS Work Phone: Start: 09-98-5192FY TOMOSYNTHESIS SCREENING Rosalina Sánchez MD Work Phone: Start: 33-55-9133OdkatcllpsvHanslmky Walker GARZA Work Phone: Start: 45-11-9528VU PULMONARY FUNCTION TESTSservando Sánchez MD Work Phone: Plan of Treatment DateCare ActivityDetailAuthorStart: 27-12-1168Qacgvveb screeningDiabetes: Retinopathy ScreeningNOND HealthcareStart: 06-25-2026Medicare Annual Wellness (AWV)Medicare Annual Wellness (AWV)[facility] HealthcareStart: 30-01-2567Fkjyfyvpl for malignant neoplasm of breastMammogramNOMS HealthcareStart: 68-85-5466Jxcfh screening for proteinDiabetes: Urine Protein ScreeningNOND HealthcareStart: 41-87-6652Zyqmkjgnw for malignant neoplasm of colonNOMS HealthcareStart: 27-74-6009Dkgftyo referralCorey Hospital Work Phone: Start: 21-20-4358Yjxnhkuycu A1c measurementDiabetes: Hemoglobin E2GZXWM HealthcareStart: 07-31-2025 End: 06-57-1128Ybncjtm encounter rcffblgqu93/17/2025 11:00 AM EDT Office Visit [facility] [address] [place] [address] La Pack NP [address] [place] [address] [facility] FMStart: 44-34-0685CNTOG-19 Vaccine ( season)COVID-19 Vaccine ( season)[facility] HealthcareStart: 07-15-2025 Influenza vaccinationNOND HealthcareStart: 06-26-2025 End: 48-79-9954Jycwc metabolic 1998 panel - Serum or PlasmaBasic metabolic panel Lab Routine Primary hypertension Type 2 diabetes mellitus without complication, without long-term current use of insulin (HCC) Edema of both lower legs Expected: 06/26/2025 (Approximate), Expires: 06/26/2026[facility] Work Phone: Comment on above:Expected: 06/26/2025 (Approximate), Expires: 06/26/2026Start: 06-26-2025 End: 72-09-7609Lgehbux encounter procedureNOMS [facility] FMComment on above:Primary hypertension (Primary Dx); Chronic obstructive pulmonary disease, unspecified COPD type (HCC); Type 2 diabetes mellitus without complication, without long-term current use of insulin (HCC); Cigarette nicotine dependence without complicationStart: 15-22-1358Qxesmiwox vaccinationInfluenza Vaccine (#1)NOMS HealthcareComment on above:Postponed from 07/15/2024 (Patient Refused)Start: 05-07-2025 End: 86-24-1200Fxulvjs encounter fwidoimaa46/24/2025 10:00 AM EDT Office Visit [facility] [address] [place] [address] La Pack NP [address] [place] [address] [facility] CW FMStart: 04-16-2025 End: 34-30-2773Eoozlqj encounter procedureNOMS [facility] FMStart: 03-25-2025 End: 74-60-7906Ouildamfuep [Units/volume] in Serum or PlasmaTSH Lab Routine Acquired hypothyroidism (CMS/HCC) Expected: 03/25/2025 (Approximate), Expires: 03/25/2026[facility] Work Phone: Comment on above:Expected: 03/25/2025 (Approximate), Expires: 03/25/2026Start: 03-25-2025 End: 94-70-6904Enqhuljot (T4) free [Mass/volume] in Serum or PlasmaT4, free Lab Routine Acquired hypothyroidism (CMS/HCC) Expected: 03/25/2025 (Approximate), Expires:03/25/2026[facility] HealthcareComment on above:Expected: 03/25/2025 (Approximate), Expires: 03/25/2026Start: 03-22-2025 End: 76-67-8951VVX W Auto Differential panel - BloodCBC and differential Lab Routine Iron deficiency anemia due to chronic blood loss Expected: 03/22/2025 (Approximate), Expires: 02/20/2026[facility] HealthcareComment on above:Expected: 03/22/2025 (Approximate), Expires: 02/20/2026Start: 03-22-2025 End: 25-17-8254Uexd and Iron binding capacity panel - Serum or PlasmaIron level Lab Routine Iron deficiency anemia due to chronic blood loss Expected: 03/22/2025 (Approximate), Expires: 02/20/2026[facility] Work Phone: Comment on above:Expected: 03/22/2025 (Approximate), Expires: 02/20/2026Start: 03-21-2025 End: 69-98-6227Thewrqxffsw [Units/volume] in Serum or PlasmaTSH Lab Routine Elevated TSH Expected: 03/21/2025 (Approximate), Expires: 02/19/2026[facility] Healthcare Work Phone: Comment on above:Expected: 03/21/2025 (Approximate), Expires: 02/19/2026Start: 03-21-2025 End: 92-23-8949Tzvptienz (T4) free [Mass/volume] in Serum or PlasmaT4, free Lab Routine Elevated TSH Expected: 03/21/2025 (Approximate), Expires: 02/19/2026[facility] HealthcareComment on above:Expected: 03/21/2025 (Approximate), Expires: 02/19/2026Start: 56-98-0492Rjuorryxqe A1c measurementDiabetes: Hemoglobin A1C [facility] HealthcareStart: 68-31-4066Vjrnllem screeningDiabetes: Retinopathy ScreeningSPANISH FORK HOSPITAL HealthcareStart: 04-25-2025Medicare Annual Wellness (AWV)Medicare Annual Wellness (AWV)[facility] HealthcareStart: 02-06-2025 End: 084505-yilsdxdkkkzfpk D3 [Mass/volume] in Serum or PlasmaVitamin D 25 hydroxy Lab Routine Vitamin D deficiency Expected: 02/06/2025 (Approximate), Expires: 02/06/2026[facility] HealthcareComment on above:Expected: 02/06/2025 (Approximate), Expires: 02/06/2026Start: 02-06-2025 End: 48-17-4589QIZ W Auto Differential panel - BloodCBC and differential Lab Routine Iron deficiency anemia due to chronic blood loss Expected: 02/06/2025 (Approximate), Expires: 02/06/2026[facility] HealthcareComment on above:Expected: 02/06/2025 (Approximate), Expires: 02/06/2026Start: 02-06-2025 End: 89-15-1244Tdyumdtbxgour metabolic 2000 panel - Serum or PlasmaComprehensive metabolic panel Lab Routine Primary hypertension (CMS/HCC) Type 2 diabetes mellitus without complication, without long-term current use of insulin (CMS/HCC) Expected: 02/06/2025 (Approximate), Expires: 02/06/2026[facility] Healthcare Comment on above:Expected: 02/06/2025 (Approximate), Expires: 02/06/2026Start: 02-06-2025 End: 70-25-5482Yrxkybga [Mass/volume] in Serum or PlasmaFerritin Lab Routine Iron deficiency anemia due to chronic blood loss Expected: 02/06/2025 (Approxim ate), Expires: 02/06/2026[facility] HealthcareComment on above:Expected: 02/06/2025 (Approximate), Expires: 02/06/2026Start: 02-06-2025 End: 97-81-5065Rpdgbnhvae A1c/Hemoglobin.total in BloodHemoglobin A1c Lab Routine Type 2 diabetes mellitus without complication, without long-term current use of insulin (CMS/HCC) Expected: 02/06/2025 (Approximate), Expires: 02/06/2026 NOM[facility] HealthcareComment on above:Expected: 02/06/2025 (Approximate), Expires: 02/06/2026Start: 02-06-2025 End: 73-08-9477Wujv + transferrin + TIBCIron + transferrin + TIBC Lab Routine Iron deficiency anemia due to chronic blood loss Expected: 02/06/2025 (Approximate), Expires: 02/06/2026[facility] HealthcareComment on above:Expected: 02/06/2025 (Approximate), Expires: 02/06/2026Start: 02-06-2025 End: 93-83-7914Wvwwo 1996 panel - Serum or PlasmaLipid panel Lab Routine Other hyperlipidemia ([facility]/HCC) Expected: 02/06/2025 (Approximate), Expires:02/06/2026 N[facility] HealthcareComment on above:Expected: 02/06/2025 (Approximate), Expires: 02/06/2026Start: 02-06-2025 End: 64-75-0473OE Breast - bilateral ScreeningBilateral screening mammogram Imaging Routine Screening mammogram, encounter for Expected: 02/06/2025 (Approximate), Expires: 04/08/2026[facility] Healthcare Work Phone: Comment on above:Expected: 02/06/2025 (Approximate), Expires: 04/08/2026Start: 02-06-2025 End: 68-31-5959Kyvtpjxeftiq/Creatinine panel in random UrineMicroalbumin / creatinine, urine ratio Lab Routine Primary hypertension ([facility]) Type 2 diabetes mellitus without complication, without long-term current use of insulin ([facility]) Expected: 02/06/2025 (Approximate), Expires: 02/06/2026[facility] HealthcareComment on above:Expected: 02/06/2025 (Approximate), Expires: 02/06/2026Start: 02-06-2025 End: 11-68-9144Jvlykdnanda [Units/volume] in Serum or PlasmaTSH Lab Routine Generalized anxiety disorder ([facility]) Expected: 02/06/2025 (Approximate), Expires:02/06/2026[facility] HealthcareComment on above:Expected: 02/06/2025 (Approximate), Expires: 02/06/2026Start: 02-06-2025 End: 28-45-2218Ybiqoeoeof complete panel - UrineUrinalysis with reflex microscopic (clean catch) Lab Routine Primary hypertension ([facility]/HCC) Type 2 d iabetes mellitus without complication, without long-term current use of insulin ([facility]/HCC) Expected:02/06/2025 (Approximate), Expires: 02/06/2026[facility] Healthcare Comment on above:Expected: 02/06/2025 (Approximate), Expires: 02/06/2026Start: 02-06-2025 End: 81-14-2339Rxqkycn encounter ooaqhewkz94/26/2025 10:00 AM EDT Office Visit [facility] [address] [place] [address] La Pack NP [address] [place] [address] [facility] C[facility] FMStart: 01-31-2025 End: 92-66-0589Cydgfgs encounter /20/2025 11:00 AM EDT Office Visit TIA MIRANDA [address] [place] [address] Tashia Polk PA [address] [place] [address] TIA LEOtart: 52-08-2855Uytddfrxp for malignant neoplasm of breast MammogramNOND HealthcareStart: 01-14-2025 End: 80-69-0384Doskwqm encounter wqelmvvby58/03/2025 9:30 AM EST Office Visit [facility] [address] [place] [address] Ian Soares MD [address] [place] [address] [facility] FMComment on above:ArrivedStart: 49-44-3063Pyxuo screening for proteinDiabetes: Urine Protein ScreeningNOND HealthcareStart: 12-20-2024 End: 81-23-3620Jojwksz encounter oubqdrsgt42/06/2025 10:00 AM EST Office Visit [facility] [address] [place] [address] Daniel Cardoso NP [address] [place] [address] [facility] C[facility] FMStart: 89-64-5503PlqcmyyleOhiohealth Doctors Hospital Start: 99-53-4884Hzctqvvzziwgcm of prophylactic treatmentMary Rutan Hospitaltart: 39-63-9365Tnppetgy to rehabilitation physicianMary Rutan Hospitaltart: 18-33-8428WhwkjgsdbMary Rutan Hospitaltart: 81-87-9981KutdhckegMary Rutan Hospitaltart: 62-13-6726Kejxgyflbyak [facility]: 93-54-9256Czritcxz admissionMary Rutan Hospitaltart: 96-91-7736Tcxdkyci identified in Blood by Culture Blood CultureMary Rutan Hospitaltart: 05-41-5067Gtopcgivjaz Ventilation, 24-96 Consecutive HoursRespiratory Ventilation, 24-96 Consecutive HoursMary Rutan Hospitaltart: 65-53-9754Jywapjzjfgny Vaccine: 65+ Years (1 of 2 - PCV)Pneumococcal Vaccine: 65+ Years (1 of 2 - PCV)[facility] HealthcareComment on above:Postponed from 1959 (Other Patient Reasons) Start: 10-10-2024 End: 07-64-9508Jikzsar encounter ouupscygk64/27/2024 9:20 AM EST Office Visit [facility] [address] [place] [address] Tashia Polk PA [address] [place] [address] [facility] ROUTEStart: 09-20-2024 End: 41-16-5334Mrcjtzy encounter procedureNOMS CWM FMComment on above:Arrived Start: 07-18-2024 End: 32-74-0189Segdhcy encounter procedureNOMS [place] [facility] ROUTEStart: 69-80-8223Lylpmtfbl vaccinationNOND HealthcareStart: 87-52-7586Xnuprxyuqu A1c measurementDiabetes: Hemoglobin G1DHSUC HealthcareStart: 44-09-3002Fsnq Risk ScreeningFall Risk ScreeningMain [facility] SystemStart: 2003 Administration of varicella zoster vaccineZoster (Shingles) Vaccine (1 of 2) ProMWellikotart: 26-54-0386DMjR,Tdap and Td Vaccines (1 - Tdap) DTaP,Tdap and Td Vaccines (1 - Tdap)[facility] SystemStart: 1971 Adult BMI ScreeningAdult BMI ScreeningDorothea Dix Hospitaltart: 1971 Diabetic foot examinationDiabetic Foot ExamMain Campus Medical Center SystemStart: 93-13-1444Wpqqcmwkfw ScreeningDepression ScreeningMain Campus Medical Center SystemStart: 48-64-2586Imidqgo ScreeningTobacco ScreeningMain Campus Medical Center SystemStart: 96-75-9645OEmK/Tdap/Td Vaccines (1 - Tdap)DTaP/Tdap/Td Vaccines (1 - Tdap)[facility] HealthcareStart: 48-49-2136Ijvxkjsjndta Vaccine: 65+ Years (1 of 2 - PCV) Pneumococcal Vaccine: 65+ Years (1 of 2 - PCV)[facility] Health SystemStart: 1955 Glaucoma screeningDiabetic Ophthalmology ExamDorothea Dix Hospitaltart: 57-78-2143Niijjzstj for malignant neoplasm of colonSPANISH FORK HOSPITAL HealthcareStart: 57-99-8177Rsgrgu Use: DiabeticStatin Use: DiabeticRiverview Health InstituteBLOOD CULTURE 2BLOOD CULTURE 2 Lab Routine 12/09/2024 4:21 PM [facility] Comprehensive metabolic 1999 panel - Serum or [facility] HospitalComprehensive metabolic 1999 panel - Serum or [facility] HospitalPatient referralPromedica Fostoria Community Hospital Work Phone: US Heart TransthoracicHCA [facility] Immunizations Immunization DateImmunizationNotesCare BxzbqzrbWkxyytmd92-90-4399Zykdnezrlvok Conjugate PCV 20Lisa Aichholz HOST/HOSTESS Work Phone: [facility] SystemBukzwchzyo25-32-0045CBCL-TEL-9 (COVID-19) vaccine, mRNA, spike protein, LNP, bivalent, preservative free, 30 mcg/0.3 mL dose, carolyn-sucrose formulationLisa Aichholz HOST/HOSTESS Work Phone: [facility] SystemEmfmipubkc58-37-8251Fhqtlbdhx, High-dose Seasonal, Quadrivalent, Preservative FreeTaylorfrancisco Walker HOST/HOSTESS Work Phone: [facility] SystemVxfprzvnvh89-29-2218phffghqik virus vaccine, unspecified formulationBrpeterfrancisco Walker HOST/HOSTESS Work Phone: [facility] Payers DatePayer CategoryPayerPolicy [id number] 2025Self-pay 2024Medicare [facility] MEDIC[facility] Member Subscriber Plan / Payer (Effective 2023-Present) Name: Julian Montaño MMember ID: [id number] Relation to Subscriber: Self Name: Julian Montaño Payer ID: [id number] (NAIC) Group ID: [id number] Type: Not on file Address: [address] [place] [id number] 2021Medicare (Managed Care)[employer] [id number] 2016Medicare [id number] 2.840.1.844209.3.57[id number] 2.840.1.032530.3.57[id number] 2.0.1.007133.3.57[id number] 2.0.1.780099.3.57[id number] 2.0.1.758126.3.57[id number] 2.0.1.441439.3.57[id number] 2.0.1.408136.3.57[id number] 2.0.1.969033.3.57[id number] 2.0.1.285409.3.57[id number] 2..1.075574.3.57[id number] 2.0.1.936[id number] 2.840.1.465409.3.579.2.531 Social History DateTypeDetailFacilityTobacco smoking statusKettering Memorial Hospitaltart: 03-08-2024 End: 69-08-4650Qol Assigned At BirthFemalMercy Health Urbana Hospitaltart: 11-21-2023 End: 70-00-2047Shgmyju smoking status NHISSmokes tobacco dailyNOMS Healthcare History of tobacco useCigarette SmokerNOMS HealthcareHistory of tobacco use Passive smokerNOMS HealthcareStart: 11-21-2023 End: 19-73-6601Xjduzrq use and exposureSmokeless tobacco non-userNOMS Healthcare Start: 11-29-2023 End: 56-50-1873Quxfcrucw beverage intakeLifetime non-drinker (finding)[facility]OMS HealthcareStart: 03-08-2024 End: 33-39-8649Vwwcosn of Social functionNOMS HealthcareStart: 04-83-5360Apkuiee CommentCaffeine: 2-3 cups per dayNOMS HealthcareStart: 13-78-5547Usv assigned at birthNot on fileNOMS HealthcareStart: 32-57-9041Btrjzwm smoking status NHIS Unknown if ever smokedSelect Medical Specialty Hospital [facility]umb[facility] CenterStart: 12-14-2024 End: 60-92-4253TgyIbjphu (finding)[facility] Hospitaltart: 08-51-4426Pdx Assigned At BirthFeGalion Community Hospitaltart: 11-29-2019 End: 11-43-7992Zueyklj smoking status NHISEx-smokerMercy Health Anderson Hospital Health System History of tobacco useCurrent smokerProJohn A. Andrew Memorial Hospital Health SystemStart: 02-19-2021 Alcoholic beverage intakeCurrent non-drinker of alcohol (finding)[facility] SystemStart: 27-46-1099KtnikksdnAodprpdKFZF Healthcare Medical Equipment Procedure CodeEquipment CodeEquipment Original TextEquipment IdentifierDates [id number]: 11-21-2023 End: each in the morning.[id number]: 11-21-2023 End: each by In Vitro route [id number]: 01-30-2025 End: 01-30-2026 Goals DatePatient GoalDesired Activity/State Functional Status WoudFjwtyiiikzUfeaanIjqcnuoj30-85-1819Iauhwxcfdx statusPatient at Baseline [facility] Work Phone: [phone]kevb Health Questionnaire 2 item (PHQ-2) [Reported]formerly [facility] Mental Status JcugCsqubmsgjxVzrsvpNkjsykll03-48-7767Dovfzqhqf functionCognitive Status Patient at BaselinePromedica Fostoria Community Hospital Work Phone: Clinical Notes 09-11-2024 to 07-31-2025 Note Date & VkfvLeaiWbwvmypj08-58-2325 Evaluation note* Diagnosis Onset Date Resolution Status Admit Date Edema of both lower extremities acuteSeptember 2024 10:36amElevated TSHacuteSeptember 2024 10:36am Generalized anxiety disorderacuteSeptember 2024 10:36amIron deficiency anemia due to chronic blood lossacuteSept2024 10:36amRecurrent major depressive disorder, in full remissionacuteSept2024 10:36amEdema of both lower extremitiesacuteOctober 2024 8:52amIron deficiency anemia due to chronic blood lossacuteOctober 2024 8:52am [facility] Work Phone: 1(243) 797-412609-17-2025 Evaluation note* Diagnosis Onset Date Resolution Status Admit Date Edema of both lower extremities acuteSeptember 2024 10:36amElevated TSHacuteSeptember 2024 10:36am Generalized anxiety disorderacuteSeptember 2024 10:36amIron deficiency anemia due to chronic blood lossacuteSept2024 10:36amRecurrent major depressive disorder, in full remissionacuteSept2024 10:36am Cigarette nicotine dependence without complicationacuteOctober 2024 [...] with complicationacuteOctober 2024 1:01pmPrimary hypertensionacuteOctober 2024 1:01pm [facility] Work Phone: [phone] 278-145808-13-2025 History of Present illness Narrative* La Pack [...] Pt usually avgs around 140-150s * La Ramone, HOST/HOSTESS - 06/26/2025 10:30 AM EDT Images from [...] cholecalciferol (VITAMIN D-3) 50 mcg, Oral, Daily Sfadepcluhu-Jnbdhabln-Ozrqor (Trelegy Ellipta) 200-62.5-25 MCG/ACT aerosol powder 1 Inhalation, Inhalation, Daily Jwptbbzthnr-Nbcsgrbxp-Kfbbyk (Trelegy Ellipta) 200-62.5-25 MCG/ACT aerosol powder 1 [...] long-term current use of insulin ([facility]) Check blood sugars daily, notify if <70 [...] dependence without complication Has not smoked since [place] Generalized anxiety disorder Will increase dose of [...] dependence without complication Has not smoked since [place] * La Pack NP - 06/26/2025 5:02 [...] Current meds: albuterol, trelegy documented in this encounterLake Regional Health SystemZdpekxhvgf45-90-1176 Instructions* Patient Instructions* La Pack NP - 06/26/2025 10:30 AM EDT For your anxiety: we are going to increase sertraline to 100mg pill once a day. Also adding buspar 5mg twice a day for anxiety Add antibiotic for leg cephalexin twice for 10 days, and water pill for swelling leg lasix 20mg daily Check blood work in 10 days documented in this encounterLake Regional Health SystemNtfixnjepa20-32-7484 History of Present illness Narrative* La Pack [...] compliance problems. There is no history of CAD/[place]. Diabetes She presents for her follow-up diabetic [...] being taken. She does not see a pharmacologist.Eye exam is current. Depression Visit Type: follow-up [...] breakfast, Do not crush, chew, or split. Eszvcpmzeox-Nrsafvhrx-Fnenlw (Trelegy Ellipta) 200-62.5-25 MCG/ACT aerosol powder 1 [...] complication, without long-term current use of insulin ([facility]) Check blood sugars daily, notify if <70 [...] Recurrent major depressive disorder, in full remission ([facility]) Takes sertraline daily Screening mammogram, encounter for Relevant Orders Bilateral screening mammogram COPD (chronic obstructive pulmonary disease) ([facility]) - Primary Wears oxygen at home Current meds: albuterol, trelegy Primary hypertension ([facility]) Please check blood pressure daily and record [...] D 25 hydroxy Acute hypoxic respiratory failure ([facility]) Wears oxygen at home Inhalers: trelegy, albuterol Cigarette nicotine dependence without complication Has not smoked since [place] Generalized anxiety disorder (CMS/HCC) Takes ativan prn, and sertraline Relevant Orders TSH * La Pack NP - 02/06/2025 6:32 AM EDTAssociated Problem(s): Other hyperlipidemia (CMS/[facility]) On statin therapy Check labs yearly and [...] dependence without complication Has not smoked since [facility] * La Pack NP - 02/06/2025 6:27 [...] without complication, without long-term current useof insulin ([facility]) Check blood sugars daily, notify if <70 [...] 02/06/2025 6:25 AM EDTAssociated Problem(s): Primary hypertension ([facility]) Please check blood pressure daily and record DASH diet Limit caffeine Take medication as directed Contact office if chest pain, pressure, dizziness, shortness of breath, swelling legs Recommend slow position changes Current meds: losartan * La Pack NP - 02/06/2025 6:23 AM EDTAssociated Problem(s): COPD (chronic obstructive pulmonary disease) ([facility]) Wears oxygen at home Current meds: albuterol, trelegy documented in this encounterLake Regional Health SystemEtypzxtawq50-32-1882 Instructions* Patient Instructions* La Pack NP - 02/06/2025 10:00 AM EDT Get labs completed fasting 8 hours Mammogram we will fax order to [facility], if you dont hear from them in 2 weeks, call [phone] Great job on quitting smoking documented in this encounterLake Regional Health SystemQgowepfmgv78-76-3307 History of Present illness Narrative* La Pack NP - 01/23/2025 1:10 PM EDTAssociated Problem(s): Scalp laceration, sequela No s/s infection Neuro exam is normal I do not suspect her fever is related to this Suspect possible resp * La Pack NP - 01/23/2025 1:09 PM EDTAssociated Problem(s): COPD exacerbation (CMS/HCC) Will add augmentin, [...] of Suture / Staple Removal (head) HPI: [facility] ER on 01/14/25 for scalp [...] breakfast, Do not crush, chew, or split. Vnioyfflmyw-Swwvwlabc-Awsbgo (Trelegy Ellipta) 200-62.5-25 MCG/ACT aerosol powder 1 [...] of the risks of continued smoking: stroke, [place], all forms of cancer, lung disease, and [...] of the risks of continued smoking: stroke, [place], all forms of cancer, lung disease, and . Options for quitting smoking include: cold turkey, hypnosis, acupuncture, nicotine replacement meds(gum, lozenges, and patches), Buproprion, and Varenicline. At this time pt is encouraged to evaluate their goals for wanting to quit smoking, and reach out toprovider when ready to start this process documented in this encounterLake Regional Health SystemMxzarmhuxw26-23-6005 Instructions* Patient Instructions* La Pack NP - 01/23/2025 11:30 AM EDT May wash hair, Take augmentin atb as directed, fluids, encourage cough and deep breathing If worsening breathing go to ER documented in this encounterLake Regional Health SystemEgasweqdjc59-12-5737 History of Present illness Narrative* Ian Soares MD - 01/14/2025 9:55 AM ESTAssociated Problem(s): Type 2 diabetes mellitus without complication, without long-term current useof insulin (CMS/HCC) BS controlled and monitor. Stick to ADA diet and limit carbs. * Ian Soares MD - 01/14/2025 9:55 AM ESTAssociated Problem(s): Primary hypertension (CMS/HCC) BP controlled and monitor PRN. * Ian [...] AM ESTAssociated Problem(s): Acute hypoxic respiratory failure ([facility]/HCC) SpO2 stable and wean oxygen as [...] home and intubated by EMS. Brought to [facility] then transferred to [facility]. Admitted 12/09-12/14 and treated for influenza A [...] long-term current use of insulin (CMS/[facility]) BS controlled and monitor. Stick to ADA diet and limit carbs. COPD (chronic obstructive pulmonary disease) (CMS/[facility]) Breathing stable and continue inhalers. Use albuterol nebulized PRN. Script for new nebulizer machine to patient. Relevant Medications albuterol HFA 90 mcg/act inhaler Primary hypertension (CMS/HCC) BP controlled and monitor PRN. Acute hypoxic respiratory failure (CMS/HCC) SpO2 stable and wean oxygen as tolerated. Influenza A - Primary Recent infection but improved and monitor. documented in this encounterLake Regional Health SystemCbpdkllbyv55-23-6476 History of Present illness Narrative* Stephen Macias, DO - 01/01/2025 1:19 PM EST Patient Name: Julian Montaño Date of : 1955 Date of Service: 01/01/2025 Facility[place] [facility] Type of Visit: Skilled Visit Subjective Julian Montaño is a 69 y.o. female seen today at prison facility for therapy visit. Julian is participating [...] Exam Vitals reviewed. Exam conducted with a brace maker present (Priyank Ward MS3). Constitutional: General: She [...] / Plan 1. Acute hypoxic respiratory failure ([facility]) 2. Aspiration pneumonia, unspecified aspiration pneumonia type, unspecified laterality, unspecifiedpart of lung ([facility]) 3. Chronic obstructive pulmonary disease, unspecified COPD type ([facility]) 4. Influenza A 5. Type 2 diabetes mellitus without complication, without long-term current use of insulin ([facility]) 6. Other abnormalities of gait and mobility [...] BY: Stephen Macias DO documented in this encounterRiverview Health Institute02-14-2025 History of Present illness Narrative* Stephen Macias DO - 12/28/2024 2:56 PM EST Patient Name: Julian Montaño Date of : 1955 Date of Service: 12/28/2024 [place] [facility] [place] of Visit: Skilled Visit Subjective Julian Montaño is a 69 y.o. female seen today at prison facility for therapy visit. Julian is in therapy. She is slowly improving. Staff is needing a taom-ee-wimu visit to document her oxygen in wheelchair [...] Exam Vitals reviewed. Exam conducted with a brace maker present (Priyank Ward MS3). Constitutional: General: She [...] BY: Stephen Macias DO documented in this encounterRegency Hospital Cleveland EastWooop [facility] GladwinPaqkxm76-09-1372 History of Present illness Narrative* Stephen Macias DO - 12/25/2024 11:59 PM EST Patient Name: Julian Montaño Date of : 1955 Date of Service: 12/25/2024 Facility: [facility] Type of Visit: Skilled Visit Subjective Julian Montaño is a 69 y.o. female seen today at prison facility for therapy visit. Julian is participating [...] Exam Vitals reviewed. Exam conducted with a brace maker present (Priyank Ward MS3). Constitutional: General: She [...] BY: Stephen Macias DO documented in this encounterRiverview Health Institute02-04-2025 History of Present illness Narrative* Stephen Macias DO - 12/18/2024 11:59 PM EST Patient Name: Julian Montaño Date of : 1955 Date of Service: 12/18/2024 [place] [facility] Type of Visit: Admission H&P Subjective Julian Montaño is a 69 y.o. female seen today at prison facility for admission H&Makeda Gardiner presents to [facility] for therapy following hospitalization at [facility]. She was diagnosed with acute hypoxic [...] previous hospitalization or why she went to thehospital but apparently she was found unresponsive on the floor. She did to be intubated and was placed on a ventilator. She was eventually weaned off. She was given a course of antibiotics, steroidsand Tamiflu. She was told that she might have had a heart attack. She did have an echocardiogram which showed normal EF of 65-70%. Past Medical History: Diagnosis Date Acoustic neuroma ([facility]) Anemia Asymmetric SNHL (sensorineural hearing loss) Benign neoplasm of cranial nerve ([facility]) Bilateral cataracts Chronic bronchitis ([facility]) Chronic cough Constipation COPD (chronic obstructive pulmonary disease) ([facility]) Depression Diabetes mellitus ([facility]) history of GERD (gastroesophageal reflux disease) Hemorrhoids History of brain tumor removed in 1997, came back 2018 Hyperlipidemia Hypertension Macular degeneration Osteoarthritis of hip Personal history of tobacco use Positive occult stool blood test Right acoustic neuroma ([facility]) Splenic sequestration Vitamin D deficiency Past Surgical [...] Exam Vitals reviewed. Exam conducted with a brace maker present (Priyank Ward MS3). Constitutional: General: She [...] / Plan 1. Acute hypoxic respiratory failure ([facility]) 2. Chronic obstructive pulmonary disease, unspecified COPD type ([facility]) 3. Influenza A 4. Aspiration pneumonia, unspecified aspiration pneumonia type, unspecified laterality, unspecifiedpart of lung ([facility]) 5. Depression, unspecified depression type 6. Cigarette smoker 7. Type 2 diabetes mellitus without complication, without long-term current use of insulin ([facility]) 8. [facility]. Finish antibiotic, [...] BY: Stephen Macias DO documented in this encounterRegency Hospital Cleveland EastCloudBlue Technologies Rpqwks62-48-7435 Discharge summary Author Daniel Garza [facility] HospitalNote Date/TimeJanuary 2024 2:47pm [address] [place] [address] Discharge Summary Signed Patient: Julian Montaño MR#: [id number] : 1955 Acct:[id number] Age/Sex: 69 / F Adm Date: 5 Loc: Room: [address] [place] [address]: Daniel Garza MD Copies to: MD Daniel Cruz, HOST/HOSTESS-C~ Providers Date of Discharge: 12/14/24 Discharging Provider: [...] as GERD and depression. Patient came to [facility] after she was intubated by the [...] vomiting and no other concerns as per [facility] documentation. Labs at [facility] showed CBC with leukocytosis and left shift, [...] no signs ofUTI. Her ABG wasdone at [facility] ER showed pH of 7.16 as well as PaCO2 of 71.5. She was intubated by EMS, was given 100 mg of succinylcholine 60 mg of ketamine and then 50 mg of fentanyl and 5 mg of Versed as well as 6.4 mg of Elconin. Also they reached out to cardiology at [facility] recommending again heparinization. EKG showed sinus tachycardia [...] started on bronchodilator steroid antibiotics and oseltamivir. Bioinformatics Engineer was consulted who recommended continuing the same. [...] troponin likely in setting of type II [place]. Follow-up echo showed normal ejection fraction of 65 to 70% with normal wall motion. PMR was consulted for possible inpatient rehab who recommended discharge to prison facility. Patient was waiting for pre-CERT to prison facility and is finally approved and isbeing dischargedthere. Condition Condition at Discharge: Stable Time Spent with Patient Time spent providing/coordinating discharge services (# min): 38 Discharge Plan Discharge Plan Patient Disposition: Nursing Home Facility Additional Instructions: Nursing Home Facility to manage care: - Full code [...] with device INHALATION Follow Up: Daniel Cardoso HOST/HOSTESS-C [Primary Care Provider] - (Follow-up with your Primary Care Provider after discharge from Nursing Home Facility) Exam Physical Exam Vital Signs: Temp [...] % (Auto) 84.6, Lymph % (Auto) 7.0, [place] % (Auto) 8.2, Eos % (Auto) 0.0, Baso % (Auto) 0.2, Nucleat RBC Rel Count 0.1, Neut # (Auto) 7.2, Lymph # (Auto) 0.6 L, [place] # (Auto) 0.7, Eos # (Auto) 0.0, [...] 141 Documented By: Daniel Garza MD 12/14/24 1442 Signed By: <Electronically signed by Daniel Garza MD> 12/14/24 1447 [facility] Work Phone: 1(730) 531-437301-31-2025 Progress note Author Daniel Garza [facility] HospitalNote Date/TimeJanuary 2024 1:58pm [address] [address] Hospitalist Progress Note Signed Patient: Julian Montaño MR#: [id number] : 1955 Acct:[id number] Age/Sex: 69 / F Adm Date: 5 Loc: Room: [address] [place] [address] Type: ADM IN Attending Dr: Daniel Garza MD Copies to: ~ Date of Service: 12/14/2024 Subjective Subjective Narrative: This is a 69 y.o female with past medical history of COPD, dyslipidemia, hypertension, type 2 diabetes as well as GERD and depression. Patient came to [facility] after she was intubated by the [...] vomiting and no other concerns as per [facility] documentation. Labs at [facility] showed CBC with leukocytosis and left shift, [...] no signs ofUTI. Her ABG wasdone at [facility] ER showed pH of 7.16 as well as PaCO2 of 71.5. She was intubated by EMS, was given 100 mg of succinylcholine 60 mg of ketamine and then 50 mg of fentanyl and 5 mg of Versed as well as 6.4 mg of Elconin. Also they reached out to cardiology at [facility] recommending again heparinization. EKG showed sinus tachycardia [...] started on bronchodilator steroid antibiotics and oseltamivir. Bioinformatics Engineer was consulted who recommended continuing the same. [...] Ml SUBCUT 12/12/25 21:59 Not Given [facility] Protocol Oseltamivir Phosphate 30 mg 12/13/24 [...] no water. Elevated troponin likely type 2 [place] -Continue on steroids, bronchodilator, oseltamivir and antibiotics -ICU consult-appreciate recommendation -As per her daughter, pt does not drink alcohol or use drugs, She is a very active smoker -HSQ for DVT prophylaxis -Pantoprazole IV 40 mg daily for GI prophylaxis -Full code -consulted cardio-believes elevated troponin likely in setting of type II [place]. Follow-up echo showednormal ejection fraction of 65 to 70% with normal wall motion -PMR was consulted who recommended discharge to prison facility. Full code Documented By: Daniel Garza MD 12/14/24 1356 Signed By: <Electronically signed by Daniel Garza MD> 12/14/24 1358 [facility] Work Phone: 1(847) 714-454701-31-2025 Progress note Author Cecilia Ruiz [facility] HospitalNote Date/TimeJanuary 2024 1:18pm [place] [address] Pulmonology Progress Note Signed Patient: Julian Montaño MR#: [id number] : 1955 Acct:[id number] Age/Sex: 69 / F Adm Date: 5 Loc: 4 Room: [address] [place] [address] Type: ADM IN Attending Dr: Daniel Garza [...] signed by Cecilia Ruiz MD> 12/14/24 1318 [facility] Work Phone: 1(750) 428-972401-31-2025 Discharge summaryZ[place] [id number] Discharge Summary Signed Patient: Julian Montaño MR#: [id number] : 1955 Acct:[id number] Age/Sex: 69 / F Adm Date: 5 Loc: Room: [address] [place] [address]: Daniel Garza MD Copies to: MD Daniel Cruz, HOST/HOSTESS-C~ Providers Date of Discharge: 12/14/24 Discharging Provider: [...] as GERD and depression. Patient came to [facility] after she was intubated by the [...] vomiting and no other concerns as per [facility] documentation. Labs at [facility] showed CBC with leukocytosis and left shift, [...] no signs ofUTI. Her ABG wasdone at [facility] showed pH of 7.16 as well as PaCO2 of 71.5. She was intubated by EMS, was given 100 mg of succinylcholine 60 mg of ketamine and then 50 mg of fentanyl and 5 mg of Versed as well as 6.4 mg of Elconin. Also they reached out to cardiology at [facility] recommending again heparinization. EKG showed sinus tachycardia [...] started on bronchodilator steroid antibiotics and oseltamivir. Bioinformatics Engineer was consulted who recommended continuing the same. [...] troponin likely in setting of type II [place]. Follow-up echo showed normal ejection fraction of 65 to 70% with normal wall motion. PMR was consulted for possible inpatient rehab who recommended discharge to prison facility. Patient was waiting for pre-CERT to prison facility and is finally approved and isbeing dischargedthere. Condition Condition at Discharge: Stable Time Spent with Patient Time spent providing/coordinating discharge services (# min): 38 Discharge Plan Discharge Plan Patient Disposition: Nursing Home Facility Additional Instructions: Nursing Home Facility to manage care: - Full code [...] with device INHALATION Follow Up: Daniel Cardoso, HOST/HOSTESS-C [Primary Care Provider] - (Follow-up with your Primary Care Provider after discharge from Nursing Home Facility) Exam Physical Exam Vital Signs: Temp [...] % (Auto) 84.6, Lymph % (Auto) 7.0, [place] % (Auto) 8.2, Eos % (Auto) 0.0, Baso % (Auto) 0.2, Nucleat RBC Rel Count 0.1, Neut # (Auto) 7.2, Lymph # (Auto) 0.6 L, [place] # (Auto) 0.7, Eos # (Auto) 0.0, [...] MD 12/14/24 144 Signed By: 12/14/24 1447 [facility]01-31-2025 [place] [id number] Hospitalist Progress Note Signed Patient: Julian Montaño MR#: [id number] : 1955 Acct:[id number] Age/Sex: 69 / F Adm Date: 5 Loc: Room: [id number] Type: ADM IN Attending Dr: Daniel Garza MD Copies to: ~ Date of Service: 12/14/2024 Subjective Subjective Narrative: This is a 69 y.o female with past medical history of COPD, dyslipidemia, hypertension, type 2 diabetes as well as GERD and depression. Patient came to [facility] after she was intubated by the [...] vomiting and no other concerns as per [facility] documentation. Labs at [facility] showed CBC with leukocytosis and left shift, [...] no signs ofUTI. Her ABG wasdone at [facility] showed pH of 7.16 as well as PaCO2 of 71.5. She was intubated by EMS, was given 100 mg of succinylcholine 60 mg of ketamine and then 50 mg of fentanyl and 5 mg of Versed as well as 6.4 mg of Elconin. Also they reached out to cardiology at [facility] recommending again heparinization. EKG showed sinus tachycardia [...] started on bronchodilator steroid antibiotics and oseltamivir. Bioinformatics Engineer was consulted who recommended continuing the same. [...] no water. Elevated troponin likely type 2 [place] -Continue on steroids, bronchodilator, oseltamivir and antibiotics -ICU consult-appreciate recommendation -As per her daughter, pt does not drink alcohol or use drugs, She is a very active smoker -HSQ for DVT prophylaxis -Pantoprazole IV 40 mg daily for GI prophylaxis -Full code -consulted cardio-believes elevated troponin likely in setting of type II [place]. Follow-up echo showednormal ejection fraction of 65 to 70% with normal wall motion -PMR was consulted who recommended discharge to prison facility. Full code Documented By: Daniel Garza MD 12/14/24 1356 Signed By: 12/14/24 1358 [facility]01-31-2025 [place] [id number] Pulmonology Progress Note Signed Patient: Julian Montaño MR#: [id number] : 1955 Acct:[id number] Age/Sex: 69 / F Adm Date: 5 Loc: Room: [address] [place] [address] Type: ADM IN Attending Dr: Daniel Garza [...] Ruiz MD 12/14/241316 Signed By: 12/14/24 1318 [facility]01-30-2025 Progress note Author Cecilia Ruiz [facility] Date/TimeJanuary 2024 1:53pm [place] [address] Pulmonology Progress Note Signed Patient: Julian Montaño MR#: [id number] : 1955 Acct:[id number] Age/Sex: 69 / F Adm Date: 5 Loc: Room: [address] [place] [address] Type: ADM IN Attending Dr: Daniel Garza [...] signed by Cecilia Ruiz MD> 12/13/24 1353 [facility] Work Phone: 1(384) 958-346601-30-2025 Progress note Author Daniel Garza [facility] Date/TimeJanuary 2024 1:41pm [place] [address] Hospitalist Progress Note Signed Patient: Julian Montaño MR#: [id number] : 1955 Acct:[id number] Age/Sex: 69 / F Adm Date: 5 Loc: 4 Room: [address] [place] [address] Type: ADM IN Attending Dr: Daniel Garza MD Copies to: ~ Date of Service: 12/13/2024 Subjective Subjective Narrative: This is a 69 y.o female with past medical history of COPD, dyslipidemia, hypertension, type 2 diabetes as well as GERD and depression. Patient came to [facility] after she was intubated by the [...] vomiting and no other concerns as per [facility] documentation. Labs at [facility] showed CBC with leukocytosis and left shift, [...] no signs ofUTI. Her ABG wasdone at [facility] showed pH of 7.16 as well as PaCO2 of 71.5. She was intubated by EMS, was given 100 mg of succinylcholine 60 mg of ketamine and then 50 mg of fentanyl and 5 mg of Versed as well as 6.4 mg of Elconin. Also they reached out to cardiology at [facility] recommending again heparinization. EKG showed sinus tachycardia [...] started on bronchodilator steroid antibiotics and oseltamivir. Bioinformatics Engineer was consulted who recommended continuing the same. [...] no water. Elevated troponin likely type 2 [place] -Continue on steroids, bronchodilator, oseltamivir and antibiotics -ICU consult-appreciate recommendation -As per her daughter, pt does not drink alcohol or use drugs, She is a very active smoker -HSQ for DVT prophylaxis -Pantoprazole IV 40 mg daily for GI prophylaxis -Full code -consulted cardio-believes elevated troponin likely in setting of type II [place]. Follow-up echo showednormal ejection fraction of 65 to 70% with normal wall motion -PMR was consulted who recommended discharge to prison facility. Full code Documented By: Daniel Garza MD 12/13/24 1337 Signed By: <Electronically signed by Daniel Garza MD> 12/13/24 1341 [facility] Work Phone: 1(866) 617-793701-30-2025 Consult note Author Dave Bazan [facility] Date/TimeJanuary 2024 1:29pm [place] [address] Physiatry (Rehab) Consult Note Signed Patient: Julian Montaño MR#: [id number] : 1955 Acct:[id number] Age/Sex: 69 / F Adm Date: 5 Loc: Room: [address] [place] [address] Type: ADM IN Attending Dr: Daniel Garza MD Copies to: MD Daniel Cruz NP-C Christian D Siebenaler, MD~ HPI Consult Date: 12/13/24 Requesting Physician: Daniel Garza MD Primary Care Provider: SILVER Francois Consult Narrative HPI: Ms. Montaño is a 69 year old female with PMH COPD, dyslipidemia, hypertension, type2 diabetes as well as GERD and depression. The patient was transferred tO [facility] from [facility] after being found unresponsive and being intubated [...] negative unless noted below or in HPI [facility] Medical History Depressed Acute hypoxic respiratory [...] 62.5 mcg-vilant 25 mcg inhalat.powder (Trelegy Ellipta) [id number]/27/25 [History] losartan 50 mg tablet mg 12/10/24 [...] % (Auto) 87.0 Lymph % (Auto) 6.4 [place] % (Auto) 6.5 Eos % (Auto) 0.0 Baso % (Auto) 0.1 Nucleat RBC Rel Count 0.1 Neut # (Auto) 9.3 H Lymph # (Auto) 0.7 L [place] # (Auto) 0.7 Eos # (Auto) 0.0 [...] MPV Neut % (Auto) Lymph % (Auto) [place] % (Auto) Eos % (Auto) Baso % (Auto) Nucleat RBC Rel Count Neut # (Auto) Lymph # (Auto) [place] # (Auto) Eos # (Auto) Baso # [...] this patient on discharge should be a prison facility. She does not meet inpatient rehab [...] chart, including current orders, allied health and compliance consultant notes, labs/imaging and performed barrow elements of exam and I formulated the plan of care and facilitated the medical decision making. I completed a substantive portion of this encounter, the medical decision making portion of this note in its entirety, including Allied health note review, nursing note review, compliance consultant note review, discussion with nursing and case management, and more than 50% of my time was spent on counseling and coordination of care, time spent 45 minutes Documented By: Dave Bazan MD 1256 Signed By: <Electronically signed by Dave Bazan MD> 12/13/24 1322 [facility] Work Phone: 1(615) 670-185701-30-[address] [address] Pulmonology Progress Note Signed Patient: Julian Montaño MR#: [id number] : 1955 Acct:[id number] Age/Sex: 69 / F Adm Date: 5 Loc: 4P Room: [address] [place] [address] Type: ADM IN Attending Dr: Daniel Garza [...] MD 12/13/24 1351 Signed By: 12/13/24 1353 [facility]01-30-2025 [place] [id number] Hospitalist Progress Note Signed Patient: Julian Montaño MR#: [id number] : 1955 Acct:[id number] Age/Sex: 69 / F Adm Date: 5 Loc: Room: [address] [place] [address] Type: ADM IN Attending Dr: Daniel Garza MD Copies to: ~ Date of Service: 12/13/2024 Subjective Subjective Narrative: This is a 69 y.o female with past medical history of COPD, dyslipidemia, hypertension, type 2 diabetes as well as GERD and depression. Patient came to [facility] after she was intubated by the [...] vomiting and no other concerns as per [facility] documentation. Labs at [facility] showed CBC with leukocytosis and left shift, [...] no signs ofUTI. Her ABG wasdone at [facility] ER showed pH of 7.16 as well as PaCO2 of 71.5. She was intubated by EMS, was given 100 mg of succinylcholine 60 mg of ketamine and then 50 mg of fentanyl and 5 mg of Versed as well as 6.4 mg of Elconin. Also they reached out to cardiology at [facility] recommending again heparinization. EKG showed sinus tachycardia [...] started on bronchodilator steroid antibiotics and oseltamivir. Bioinformatics Engineer was consulted who recommended continuing the same. [...] Dose Route Start Last Admin Trade Name Fremartin PRN Reason Stop Dose Admin Acetaminophen 650 [...] Ml SUBCUT 12/12/25 21:59 Not Given ACHS [facility] Protocol Oseltamivir Phosphate 30 mg 12/13/24 [...] no water. Elevated troponin likely type 2 [place] -Continue on steroids, bronchodilator, oseltamivir and antibiotics -ICU consult-appreciate recommendation -As per her daughter, pt does not drink alcohol or use drugs, She is a very active smoker -HSQ for DVT prophylaxis -Pantoprazole IV 40 mg daily for GI prophylaxis -Full code -consulted cardio-believes elevated troponin likely in setting of type II [place]. Follow-up echo showednormal ejection fraction of 65 to 70% with normal wall motion -PMR was consulted who recommended discharge to prison facility. Full code Documented By: Dnaiel Garza MD 12/13/24 1337 Signed By: 12/13/24 1341 [facility]01-30-2025 [place] [address] Physiatry (Rehab) Consult Note Signed Patient: Julian Montaño MR#: [id number] : 1955 Acct:[id number] Age/Sex: 69 / F Adm Date: 5 Loc: Room: [address] [place] [address] Type: ADM IN Attending Dr: Daniel Garza MD Copies to: Daniel Kayla, MD DanielSILVER Zamarripa MD~ HPI Consult Date: 12/13/24 Requesting Physician: Daniel Garza MD Primary Care Provider: SILVER Francois Consult Narrative HPI: Ms. Montaño is a 69 year old female with PMH COPD, dyslipidemia, hypertension, type2 diabetes as well as GERD and depression. The patient was transferred tO [facility] from [facility] after being found unresponsive and being intubated [...] negative unless noted below or in HPI [facility] Medical History Depressed Acute hypoxic respiratory [...] % (Auto) 87.0 Lymph % (Auto) 6.4 [place] % (Auto) 6.5 Eos % (Auto) 0.0 Baso % (Auto) 0.1 Nucleat RBC Rel Count 0.1 Neut # (Auto) 9.3 H Lymph # (Auto) 0.7 L [place] # (Auto) 0.7 Eos # (Auto) 0.0 [...] MPV Neut % (Auto) Lymph % (Auto) [place] % (Auto) Eos % (Auto) Baso % (Auto) Nucleat RBC Rel Count Neut # (Auto) Lymph # (Auto) [place] # (Auto) Eos # (Auto) Baso # [...] this patient on discharge should be a prison facility. She does not meet inpatient rehab [...] chart, including current orders, allied health and compliance consultant notes, labs/imaging and performed barrow elements of exam and I formulated the plan of care and facilitated the medical decision making. I completed a substantive portion of this encounter, the medical decision making portion of this note in its entirety, including Allied health note review, nursing note review, compliance consultant note review, discussion with nursing and case management, and more than 50% of my time was spent on counseling and coordination of care, time spent 45 minutes Documented By: Dave Bazan MD 1250 Signed By: 12/13/24 1329 [facility]01-29-2025 Progress note Author Daniel Garza [facility] Date/TimeJanuary 2024 2:45pm [address] [address] Hospitalist Progress Note Signed Patient: Julian Montaño MR#: [id number] : 1955 Acct:[id number] Age/Sex: 69 / F Adm Date: 5 Loc: Room: [address] [place] [address] Type: ADM IN Attending Dr: Daniel Garza MD Copies to: ~ Date of Service: 12/12/2024 Subjective Subjective Narrative: This is a 69 y.o female with past medical history of COPD, dyslipidemia, hypertension, type 2 diabetes as well as GERD and depression. Patient came to [facility] after she was intubated by the [...] vomiting and no other concerns as per [facility] documentation. Labs at [facility] showed CBC with leukocytosis and left shift, [...] no signs ofUTI. Her ABG wasdone at [facility] ER showed pH of 7.16 as well as PaCO2 of 71.5. She was intubated by EMS, was given 100 mg of succinylcholine 60 mg of ketamine and then 50 mg of fentanyl and 5 mg of Versed as well as 6.4 mg of Elconin. Also they reached out to cardiology at [facility] recommending again heparinization. EKG showed sinus tachycardia [...] started on bronchodilator steroid antibiotics and oseltamivir. Bioinformatics Engineer was consulted who recommended continuing the same. [...] Ampul.Neb INHALATION 12/11/25 19:59 3 ml QID.RESP LRAS Administration Dextrose 0 gm 12/09/24 22:47 Dextrose [...] no water. Elevated troponin likely type 2 [place] -Okay to be transferred out of ICU. [...] <Electronically signed by Daniel Garza MD> 12/12/24 1448 [facility] Work Phone: 1([phone]) [phone] [place] [address] Hospitalist Progress Note Signed Patient: Julian Montaño MR#: [id number] : 1955 Acct:[id number] Age/Sex: 69 / F Adm Date: 5 Loc: Room: [address] [place] [address] Type: ADM IN Attending Dr: Daniel Garza MD Copies to: ~ Date of Service: 12/12/2024 Subjective Subjective Narrative: This is a 69 y.o female with past medical history of COPD, dyslipidemia, hypertension, type 2 diabetes as well as GERD and depression. Patient came to [facility] after she was intubated by the [...] vomiting and no other concerns as per [facility] documentation. Labs at [facility] showed CBC with leukocytosis and left shift, [...] no signs ofUTI. Her ABG wasdone at [facility] ER showed pH of 7.16 as well as PaCO2 of 71.5. She was intubated by EMS, was given 100 mg of succinylcholine 60 mg of ketamine and then 50 mg of fentanyl and 5 mg of Versed as well as 6.4 mg of Elconin. Also they reached out to cardiology at [facility] recommending again heparinization. EKG showed sinus tachycardia [...] started on bronchodilator steroid antibiotics and oseltamivir. Bioinformatics Engineer was consulted who recommended continuing the same. [...] no water. Elevated troponin likely type 2 [place] -Okay to be transferred out of ICU. -Continue on steroids, bronchodilator, oseltamivir and antibiotics -ICU consult-appreciate recommendation -As per her daughter, pt does not drink alcohol or use drugs, She is a very active smoker -HSQ for DVT prophylaxis -Pantoprazole IV 40 mg daily for GI prophylaxis -Full code -consulted cardio Documented By: Daniel Garza MD 12/12/241442 Signed By: 12/12/24 1445 [facility]01-29-2025 Progress note Author Cecilia Ruiz [facility] Date/TimeJanuary 2024 11:35am [place] [address] Pulmonology Progress Note Signed Patient: Julian Montaño MR#: [id number] : 1955 Acct:[id number] Age/Sex: 69 / F Adm Date: 5 Loc: Room: [address] [place] [address] Type: ADM IN Attending Dr: Daniel Garza [...] signed by Cecilia Ruiz MD> 12/12/24 1135 [facility] Work Phone: 1(937) 979-822001-29-2025 [place] [id number] Pulmonology Progress Note Signed Patient: Julian Montaño MR#: [id number] : 1955 Acct:[id number] Age/Sex: 69 / F Adm Date: 5 Loc: Room: [address] [place] [address] Type: ADM IN Attending Dr: Daniel Garza [...] Ruiz MD 12/12/241132 Signed By: 12/12/24 1135 [facility]01-28-2025 Progress note Author Cecilia Ruiz [facility] Date/TimeJanuary 2024 2:49pm [place] [address] Pulmonology Progress Note Signed Patient: Julian Montaño MR#: [id number] : 1955 Acct:[id number] Age/Sex: 69 / F Adm Date: 5 Loc: Room: [address] [place] [address] Type: ADM IN Attending Dr: Daniel Garza [...] signed by Cecilia Ruiz MD> 12/11/24 1449 [facility] Work Phone: 1(301) 534-838001-28-2025 Progress note Author Daniel Garza [facility] Date/TimeJanuary 2024 2:43pm [place] [address] Hospitalist Progress Note Signed Patient: Julian Montaño MR#: [id number] : 1955 Acct:[id number] Age/Sex: 69 / F Adm Date: 5 Loc: Room: [id number] Type: ADM IN Attending Dr: Daniel Garza MD Copies to: ~ Date of Service: 12/11/2024 Subjective Subjective Narrative: This is a 69 y.o female with past medical history of COPD, dyslipidemia, hypertension, type 2 diabetes as well as GERD and depression. Patient came to [facility] after she was intubated by the [...] vomiting and no other concerns as per [facility] documentation. Labs at [facility] showed CBC with leukocytosis and left shift, [...] no signs ofUTI. Her ABG wasdone at [facility] ER showed pH of 7.16 as well as PaCO2 of 71.5. She was intubated by EMS, was given 100 mg of succinylcholine 60 mg of ketamine and then 50 mg of fentanyl and 5 mg of Versed as well as 6.4 mg of Elconin. Also they reached out to cardiology at [facility] recommending again heparinization. EKG showed sinus tachycardia [...] started on bronchodilator steroid antibiotics and oseltamivir. Bioinformatics Engineer was consulted who recommended continuing the same. [...] no water. Elevated troponin likely type 2 [place] -Continue to admit in ICU -Continue on [...] signed by Daniel Garza MD> 12/11/24 1443 [facility] Work Phone: 1(807) 520-153301-28-2025 [place] [address] Pulmonology Progress Note Signed Patient: Julian Montaño MR#: [id number] : 1955 Acct:[id number] Age/Sex: 69 / F Adm Date: 5 Loc: Room: [address] [place] [address] Type: ADM IN Attending Dr: Daniel Garza [...] Ruiz MD 12/11/241445 Signed By: 12/11/24 1449 [facility]01-28[facility]2025 [place] [address] Hospitalist Progress Note Signed Patient: Julian Montaño MR#: [id number] : 1955 Acct:[id number] Age/Sex: 69 / F Adm Date: 5 Loc: Room: [address] [place] [address] Type: ADM IN Attending Dr: Daniel Garza MD Copies to: ~ Date of Service: 12/11/2024 Subjective Subjective Narrative: This is a 69 y.o female with past medical history of COPD, dyslipidemia, hypertension, type 2 diabetes as well as GERD and depression. Patient came to [facility] after she was intubated by the [...] vomiting and no other concerns as per [facility] documentation. Labs at [facility] showed CBC with leukocytosis and left shift, [...] no signs ofUTI. Her ABG wasdone at [facility] ER showed pH of 7.16 as well as PaCO2 of 71.5. She was intubated by EMS, was given 100 mg of succinylcholine 60 mg of ketamine and then 50 mg of fentanyl and 5 mg of Versed as well as 6.4 mg of Elconin. Also they reached out to cardiology at [facility] recommending again heparinization. EKG showed sinus tachycardia [...] started on bronchodilator steroid antibiotics and oseltamivir. Bioinformatics Engineer was consulted who recommended continuing the same. [...] no water. Elevated troponin likely type 2 [place] -Continue to admit in ICU -Continue on [...] MD 12/11/24 143 Signed By: 12/11/24 1443 [facility]01-28-2025 Consult note Author Krissy Cortez [facility] Date/TimeJanuary 2024 10:30pm [address] [address] Cardiology Consult Note Signed Patient: Julian Montaño MR#: [id number] : 1955 Acct:[id number] Age/Sex: 69 / F Adm Date: 5 Loc: Room: [address] [place] [address] Type: ADM IN Attending Dr: Daniel Garza MD Copies to: MD Daniel Cruz, HOST/HOSTESS-C Suman Butler DO,RES Krissy Cortez MD~ Cardiology [...] who was transferred to our facility from [facility] lastnight. Per prior documentation, the patient arrived to [facility] ER after being intubated by EMS. She was reportedly found unresponsive by her boyfriend (unknown downtime) and was not responding. Additionally, prior documentation reveals that family was noting the patient complaining of shortness ofbreath for 2 days prior to arrival in the emergency department. [place] labs revealed a leukocytosis, hemoglobin of 10.6, [...] of Systems Unobtainable due to endotracheal tube [facility] Medical History (Updated 12/10/24 @ 15:52 [...] 62.5 mcg-vilant 25 mcg inhalat.powder (Trelegy Ellipta) [id number]/27/25 [History] losartan 50 mg tablet mg 12/10/24 [...] H Lymph # (Auto) N/A 0.2 L [place] # (Auto) N/A 0.5 Eos # (Auto) [...] recheck about 9 hours later -EKG from [facility] reviewed and shows sinus tachycardia with right bundle branch block without evidence of ischemic changes -I believe the elevated troponins indicative of a type II [place] and have low suspicion for type I [place], however will obtain echocardiogram for further evaluation [...] agree with the resident's note. Type II [place] in the setting of acute hypoxic respiratory failure. ECHO shows normal LVEF 65-70% with normal wall motion. Can consider stress MPI as outpatient once recovered from acute resp issues. Cardiology will see again as needed. = Documented By: Krissy Cortez MD 12/10/24 102 Signed By: <Electronically signed by Krissy Cortez MD> 12/10/242229 <Electronically signed by DO DEVEN Butler> 12/10/24 1553 [facility] Work Phone: 1(883) 728-628501-27-2025 Consult [place] [phone] Cardiology Consult Note Signed Patient: Julian Montaño MR#: [id number] : 1955 Acct:[id number] Age/Sex: 69 / F Adm Date: 5 Loc: 4C Room: [id number] Type: ADM IN Attending Dr: Daniel Garza MD Copies to: MD Daniel Cruz NP-C Suman Butler DO, RES Linda Njoroge, MD~ Cardiology [...] who was transferred to our facility from [facility] lastnight. Per prior documentation, the patient arrived to [facility] ER after being intubated by EMS. She was reportedly found unresponsive by her boyfriend (unknown downtime) and was not responding. Additionally, prior documentation reveals that family was noting the patient complaining of shortness ofbreath for 2 days prior to arrival in the emergency department. [place] labs revealed a leukocytosis, hemoglobin of 10.6, [...] 62.5 mcg-vilant 25 mcg inhalat.powder (Trelegy Ellipta) [id number]/27/25 [History] losartan 50 mg tablet mg 12/10/24 [...] H Lymph # (Auto) N/A 0.2 L [place] # (Auto) N/A 0.5 Eos # (Auto) [...] recheck about 9 hours later -EKG from [facility] reviewed and shows sinus tachycardia with right bundle branch block without evidence of ischemic changes -I believe the elevated troponins indicative of a type II [place] and have low suspicion for type I [place], however will obtain echocardiogram for further evaluation [...] agree with the resident's note. Type II [place] in the setting of acute hypoxic respiratory failure. ECHO shows normal LVEF 65-70% with normal wall motion. Can consider stress MPI as outpatient once recovered from acute resp issues. Cardiology will see again as needed. = Documented By: Krissy Cortez MD 12/10/24 1020 Signed By: 12/10/24 2230 12/10/24 1554 [facility] [facility] Progress note Author Daniel Garza [facility] HospitalNote Date/TimeJanuary 2024 8:26pm [place] [address] Hospitalist Progress Note Signed Patient: Julian Montaño MR#: [id number] : 1955 Acct:[id number] Age/Sex: 69 / F Adm Date: 5 Loc: Room: [address] [place] [address] Type: ADM IN Attending Dr: Daniel Garza MD Copies to: ~ Date of Service: 12/10/2024 Subjective Subjective Narrative: This is a 69 y.o female that appears from the medication reconciliation [facility], patient appears to have past medical history of COPD, dyslipidemia, hypertension, type 2 diabetes as well as GERD anddepression. Patient came to [facility] after she was intubated by the [...] vomiting and no other concerns as per [facility] documentation. Labs at [facility] showed CBC with leukocytosis and left shift, [...] no signs ofUTI. Her ABG wasdone at [facility] ER showed pH of 7.16 as well as PaCO2 of 71.5. She was intubated by EMS, was given 100 mg of succinylcholine 60 mg of ketamine and then 50 mg of fentanyl and 5 mg of Versed as well as 6.4 mg of Elconin. Also they reached out to cardiology at [facility] recommending again heparinization. EKG showed sinus tachycardia [...] no water. Elevated troponin likely type 2 [place] -Continue to admit in ICU -Continue on [...] elevated troponin in setting of type II [place]. Plan to obtain echo Documented By: Daniel Garza MD 12/10/242020 Signed By: <Electronically signed by Daniel Garza MD> 12/10/242025 [facility] Work Phone: 1(281) 448-556401-27-2025 [place] [address] Hospitalist Progress Note Signed Patient: Julian Montaño MR#: [id number] : 1955 Acct:[id number] Age/Sex: 69 / F Adm Date: 5 Loc: Room: [address] [place] [address] Type: ADM IN Attending Dr: Daniel Garza MD Copies to: ~ Date of Service: 12/10/2024 Subjective Subjective Narrative: This is a 69 y.o female that appears from the medication reconciliation [facility], patient appears to have past medical history of COPD, dyslipidemia, hypertension, type 2 diabetes as well as GERD anddepression. Patient came to [facility] ER after she was intubated by the [...] vomiting and no other concerns as per [facility] documentation. Labs at [facility] showed CBC with leukocytosis and left shift, [...] no signs ofUTI. Her ABG wasdone at [facility] ER showed pH of 7.16 as well as PaCO2 of 71.5. She was intubated by EMS, was given 100 mg of succinylcholine 60 mg of ketamine and then 50 mg of fentanyl and 5 mg of Versed as well as 6.4 mg of Elconin. Also they reached out to cardiology at [facility] recommending again heparinization. EKG showed sinus tachycardia [...] no water. Elevated troponin likely type 2 [place] -Continue to admit in ICU -Continue on [...] elevated troponin in setting of type II [place]. Plan to obtain echo Documented By: Daniel Garza MD 12/10/242020 Signed By: 12/10/242025 [facility] Consult note Author Cecilia Ruiz [facility] HospitalNote Date/TimeJanuary 2024 4:32pm [place] [address] Pulmonology Consult Note Signed Patient: Julian Montaño MR#: [id number] : 1955 Acct:[id number] Age/Sex: 69 / F Adm Date: 5 Loc: Room: [address] [place] [address] Type: ADM IN Attending Dr: Daniel Garza MD Copies to: MD Cecilia Cruz MD Brittany N Fitzpatrick, SILVER~ HPI Date/Time of Consultation: Date of Service: 12/10/2024 Time of Service: 16:25 Consulting Provider: Cecilia Ruiz Requesting Provider: Daniel Garza Reason for Consult: Respiratory failure History of Present Illness History of present illness: Ms. Monatño is a 69 year old female with a past medical history of COPD, dyslipidemia, hypertension, type 2 diabetes as well as GERD and depression, presented to [facility] after she was found unresponsive by [...] of Systems Unobtainable due to endotracheal tube [facility] Medical History (Updated 12/10/24 @ 15:52 [...] nondistended. Extremities: No edema. Skin: No lesions RIPSAWYER: Arouses to stimuli and follows simple commands. [...] signed by Cecilia Ruiz MD> 12/10/24 1632 [facility] Work Phone: 1(967) 551-722101-27-[address] [address] Pulmonology Consult Note Signed Patient: Julian Montaño MR#: [id number] : 1955 Acct:[id number] Age/Sex: 69 / F Adm Date: 5 Loc: 4C Room: 6G1663-2 Type: ADM IN Attending Dr: Daniel Garza [...] well as GERD and depression, presented to [facility] after she was found unresponsive by [...] nondistended. Extremities: No edema. Skin: No lesions RIPSAWYER: Arouses to stimuli and follows simple commands. [...] Ruiz MD 12/10/241624 Signed By: 12/10/24 1632 [facility]01-26[facility] Evaluation note* Diagnosis Onset Date Resolution Status Admit Date Acute hypoxic respiratory failure acuteJanuary 2024 9:05pmAspiration pneumoniaacuteJanuary 2024 9:05pm COPD exacerbationacuteJanuary 2024 9:05pmDepressionacuteJanuary 2024 9:05pmDiabetes type 2acuteJanuary 2024 9:05pmDyslipidemiaacuteJanuary 2024 9:05pmElevated troponinacuteJanuary 2024 9:05pmHTN (hypertension)acuteJanuary 2024 9:05pmHypotensionacuteJanuary 2024 9:05pmImpaired mobility and activities of daily livingacuteJanuary 2024 9:05pmInfluenza AacuteJanuary 2024 9:05pmTobacco abuseacuteJanuary 2024 9:05pm [facility] Work Phone: 1(313) 194-189901-26-2025 Evaluation note* Diagnosis Onset Date Resolution Status Admit Date Acute hypoxic respiratory failure acuteJanuary 2024 9:05pmCOPD exacerbationacuteJanuary 2024 9:05pm DepressionacuteJanuary 2024 9:05pmDiabetes type 2acuteJanuary 2024 9:05pmDyslipidemiaacuteJanuary 2024 9:05pmElevated troponinacuteJanuary 2024 9:05pmHTN (hypertension)acuteNovuary 2024 9:05pmImpaired mobility and activities of daily livingacuteNovuary 2024 9:05pmInfluenza A acuteJanuary 2024 9:05pmTobacco abuseacuteJanuary 2024 9:05pm Aspiration pneumoniaresolvedNovuary 2024 9:05pmHypotensionresolvedJanuary 2024 9:05pm [facility] Work Phone: 1(130) 581-858111-07-2024 History of Present illness Narrative* Daniel Cardoso, GREG - 09/20/2024 10:53 AM ESTAssociated Problem(s): Type 2 diabetes mellitus without complication, without long-term current useof insulin ([facility]) Currently taking Metformin 500mg Most recent labs: [...] MODERATE RISK >11.0 HIGH RISK Resulting Agency [facility] DMII: Most recent labs: hemoglobin A1C 6.0% [...] List Items Addressed This Visit Other hyperlipidemia ([facility] Currently taking Atorvastatin 40mg Denies any myalgias. Continue current regimen. Type 2 diabetes mellitus without complication, without long-term current use of insulin ([facility]) Currently taking Metformin 500mg Most recent labs: [...] Asthma with COPD (chronic obstructive pulmonary disease) ([facility]) Currently taking Trelegy Daily and Albuterol PRN No exacerbations recently Reports using rescue inhaler 3 times per month. Continue current regimen Primary hypertension ([facility]) - Primary Currently taking Losartan-hydrochlorothiazide 50/12.5mg Checks [...] (Augmentin) 875-125 MG tablet documented [facility] [id number] Instructions* Patient Instructions* Daniel Cardoso NP - [...] if you need anything! documented in this [facility]10-29-2024 Telephone encounter Note* Telephone Encounter - Sabina Black MA - 09/11/2024 3:30 PM EDT Pt requesting a refill on her mobic, ANETTE:06/21/2024 NOV:09/20/2024 [facility] [id number] Miscellaneous Notes* Telephone Encounter - Sabina Black MA - 09/11/2024 3:30 PM EDT Pt requesting a refill on her mobic, ANETTE:06/21/2024 NOV:09/20/2024 [facility] No data available for this section [facility]* Diagnosis Iron deficiency anemia due to chronic blood loss- Primary Iron deficiency anemia secondary to blood loss (chronic) Current smoker Other hyperlipidemia (CMS/HCC) Moderate persistent asthma without complication ([facility]/HCC) Type 2 diabetes mellitus without complication, without long-term current use of insulin ([facility]/HCC) Screening mammogram, encounter for Recurrent major depressive disorder, in full remission ([facility]) Asthma with COPD (chronic obstructive pulmonary disease) ([facility])- Primary Iron deficiency anemia due to chronic [...] Asthma with COPD (chronic obstructive pulmonary disease) ([facility]/HCC) documented in this encounter [facility] HealthcareEvaluation note* Diagnosis Iron deficiency anemia due to chronic blood loss- Primary Iron deficiency anemia secondary to blood loss (chronic) Current smoker Other hyperlipidemia (CMS/HCC) Moderate persistent asthma without complication ([facility]) Type 2 diabetes mellitus without complication, without long-term current use of insulin ([facility]) Screening mammogram, encounter for Recurrent major depressive disorder, in full remission ([facility]) Asthma with COPD (chronic obstructive pulmonary disease) ([facility]/HCC)- Primary Iron deficiency anemia due to chronic blood loss Iron deficiency anemia secondary to blood loss (chronic) Type 2 diabetes mellitus without complication, without long-term current use of insulin ([facility]/HCC) Primary hypertension (CMS/HCC) Unspecified essential hypertension Asthma with COPD (chronic obstructive pulmonary disease) ([facility]/HCC)- Primary Primary hypertension ([facility]/HCC) Unspecified essential hypertension Type 2 diabetes mellitus without complication, without long-term current use of insulin (CMS/HCC) Primary hypertension (CMS/HCC)- Primary Unspecified essential hypertension Asthma with COPD (chronic obstructive pulmonary disease) ([facility]/HCC) Iron 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 blood loss Iron deficiency anemia secondary to blood loss (chronic) Other hyperlipidemia (CMS/HCC) Type 2 diabetes mellitus without complication, without long-term current use of insulin ([facility]/HCC) Vitamin D deficiency Dermoid cyst of right ear Tobacco dependency Tobacco use disorder Type 2 diabetes mellitus without complications ([facility]/HCC) documented in this encounter [facility] HealthcareEvaluation note* Diagnosis Iron deficiency anemia due to chronic blood loss- Primary Iron deficiency anemia secondary to blood loss (chronic) Current smoker Other hyperlipidemia (CMS/HCC) Moderate persistent asthma without complication (CMS/HCC) Type 2 diabetes mellitus without complication, without long-term current use of insulin ([facility]) Screening mammogram, encounter for Recurrent major depressive disorder, in full remission ([facility]/HCC) Asthma with COPD (chronic obstructive pulmonary disease) ([facility]/HCC)- Primary Iron deficiency anemia due to chronic blood loss Iron deficiency anemia secondary to blood loss (chronic) Type 2 diabetes mellitus without complication, without long-term current use of insulin (CMS/HCC) Primary hypertension (CMS/HCC) Unspecified essential hypertension Asthma with COPD (chronic obstructive pulmonary disease) ([facility])- Primary Primary hypertension ([facility]/HCC) Unspecified essential hypertension Type 2 diabetes mellitus without complication, without long-term current use of insulin ([facility]/HCC) Primary hypertension ([facility]/HCC)- Primary Unspecified essential hypertension Asthma with COPD (chronic obstructive pulmonary disease) ([facility]) Iron deficiency anemia due to chronic blood loss Iron deficiency anemia secondary to blood loss (chronic) Other hyperlipidemia (CMS/HCC) Type 2 diabetes mellitus without complication, without long-term current use of insulin ([facility]) Vitamin D deficiency Dermoid cyst of right ear Tobacco dependency Tobacco use disorder Hyperlipidemia, unspecified ([facility]) documented in this encounter [facility] HealthcareEvaluation note* Diagnosis Iron deficiency anemia due to chronic blood loss- Primary Iron deficiency anemia secondary to blood loss (chronic) Current smoker Other hyperlipidemia (CMS/HCC) Moderate persistent asthma without complication ([facility]/HCC) Type 2 diabetes mellitus without complication, without long-term current use of insulin ([facility]) Screening mammogram, encounter for Recurrent major depressive disorder, in full remission ([facility]) Asthma with COPD (chronic obstructive pulmonary disease) ([facility])- Primary 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 loss Iron deficiency anemia secondary to blood loss (chronic) Type 2 diabetes mellitus without complication, without long-term current use of insulin ([facility]/HCC) Primary hypertension ([facility]/HCC) Unspecified essential hypertension Asthma with COPD (chronic obstructive pulmonary disease) ([facility]/HCC)- Primary Primary hypertension ([facility]/HCC) Unspecified essential hypertension Type 2 diabetes mellitus without complication, without long-term current use of insulin ([facility]/HCC) Primary hypertension ([facility]/HCC)- Primary Unspecified essential hypertension Asthma with COPD (chronic obstructive pulmonary disease) (CMS/HCC) Iron deficiency anemia due to chronic blood loss Iron deficiency anemia secondary to blood loss (chronic) Other hyperlipidemia (CMS/HCC) Type 2 diabetes mellitus without complication, without long-term current use of insulin ([facility]) Vitamin D deficiency Dermoid cyst of right ear Tobacco dependency Tobacco use disorder Other bursitis of elbow, left elbow documented in this encounter [facility] HealthcareEvaluation note* Diagnosis Iron deficiency anemia due to chronic blood loss- Primary Iron deficiency anemia secondary to blood loss (chronic) Current smoker Other hyperlipidemia (CMS/HCC) Moderate persistent asthma without complication ([facility]/HCC) Type 2 diabetes mellitus without complication, without long-term current use of insulin ([facility]) Screening mammogram, encounter for Recurrent major depressive disorder, in full remission ([facility]) Asthma with COPD (chronic obstructive pulmonary disease) ([facility])- Primary Iron deficiency anemia due to chronic blood loss Iron deficiency anemia secondary to blood loss (chronic) Type 2 diabetes mellitus without complication, without long-term current use of insulin ([facility]) Primary hypertension ([facility]) Unspecified essential hypertension Asthma with COPD (chronic obstructive pulmonary disease) ([facility]/HCC)- Primary Primary hypertension ([facility]) Unspecified essential hypertension Type 2 diabetes mellitus without complication, without long-term current use of insulin ([facility]/HCC) Primary hypertension ([facility]/HCC)- Primary Unspecified essential hypertension Asthma with COPD (chronic obstructive pulmonary disease) ([facility]/HCC) Iron deficiency anemia due to chronic blood loss Iron deficiency anemia secondary to blood loss (chronic) Other hyperlipidemia ([facility]/HCC) Type 2 diabetes mellitus without complication, without long-term current use of insulin ([facility]) Vitamin D deficiency Dermoid cyst of right ear Tobacco dependency Tobacco use disorder Primary hypertension ([facility]/HCC)- Primary Unspecified essential hypertension Type 2 diabetes mellitus without complication, without long-term current use of insulin ([facility]/HCC) Other hyperlipidemia ([facility]/HCC) Asthma with COPD (chronic obstructive pulmonary disease) ([facility]) Non-recurrent acute serous otitis media of left ear documented in this encounter [facility] HealthcareEvaluation note* Diagnosis Other bursitis of elbow, left elbow documented in this encounter [facility] HealthcareEvaluation note* Diagnosis Iron deficiency anemia due to chronic blood loss- Primary Iron deficiency anemia secondary to blood loss (chronic) Current smoker Other hyperlipidemia (CMS/HCC) Moderate persistent asthma without complication ([facility]/HCC) Type 2 diabetes mellitus without complication, without long-term current use of insulin ([facility]) Screening mammogram, encounter for Recurrent major depressive disorder, in full remission ([facility]) Asthma with COPD (chronic obstructive pulmonary disease) ([facility]/HCC)- Primary Iron deficiency anemia due to chronic blood loss Iron deficiency anemia secondary to blood loss (chronic) Type 2 diabetes mellitus without complication, without long-term current use of insulin ([facility]/HCC) Primary hypertension ([facility]/HCC) Unspecified essential hypertension Asthma with COPD (chronic obstructive pulmonary disease) ([facility]/HCC)- Primary Primary hypertension ([facility]/HCC) Unspecified essential hypertension Type 2 diabetes mellitus without complication, without long-term current use of insulin ([facility]/HCC) Primary hypertension ([facility]/HCC)- Primary Unspecified essential hypertension Asthma with COPD (chronic obstructive pulmonary disease) ([facility]) Iron deficiency anemia due to chronic blood loss Iron deficiency anemia secondary to blood loss (chronic) Other hyperlipidemia ([facility]) Type 2 diabetes mellitus without complication, without long-term current use of insulin ([facility]) Vitamin D deficiency Dermoid cyst of right ear Tobacco dependency Tobacco use disorder Primary hypertension ([facility])- Primary Unspecified essential hypertension Type 2 diabetes mellitus without complication, without long-term current use of insulin ([facility]) Other hyperlipidemia ([facility]) Asthma with COPD (chronic obstructive pulmonary disease) ([facility]) Non-recurrent acute serous otitis media of left ear Gastro-esophageal reflux disease without esophagitis documented in this encounter [facility] HealthcareEvaluation note* Diagnosis 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 loss- Primary Iron deficiency anemia secondary to blood loss (chronic) Current smoker Other hyperlipidemia ([facility]/HCC) Moderate persistent asthma without complication ([facility]) Type 2 diabetes mellitus without complication, without long-term current use of insulin ([facility]) Screening mammogram, encounter for Recurrent major depressive disorder, in full remission ([facility]) Asthma with COPD (chronic obstructive pulmonary disease) ([facility])- Primary Iron deficiency anemia due to chronic blood loss Iron deficiency anemia secondary to blood loss (chronic) Type 2 diabetes mellitus without complication, without long-term current use of insulin ([facility]/HCC) Primary hypertension ([facility]) Unspecified essential hypertension Asthma with COPD (chronic obstructive pulmonary disease) ([facility])- Primary Primary hypertension ([facility]) Unspecified essential hypertension Type 2 diabetes mellitus without complication, without long-term current use of insulin ([facility]/HCC) Primary hypertension ([facility]/HCC)- Primary Unspecified essential hypertension Asthma with COPD (chronic obstructive pulmonary disease) ([facility]/HCC) Iron deficiency anemia due to chronic blood loss Iron deficiency anemia secondary to blood loss (chronic) Other hyperlipidemia ([facility]/HCC) Type 2 diabetes mellitus without complication, without long-term current use of insulin ([facility]) Vitamin D deficiency Dermoid cyst of right ear Tobacco dependency Tobacco use disorder Primary hypertension ([facility]/HCC)- Primary Unspecified essential hypertension Type 2 diabetes mellitus without complication, without long-term current use of insulin ([facility]/HCC) Other hyperlipidemia ([facility]/HCC) Asthma with COPD (chronic obstructive pulmonary disease) ([facility]) Non-recurrent acute serous otitis media of left ear Depression, unspecified ([facility]) documented in this encounter [facility] HealthcareEvaluation note* Diagnosis Iron deficiency anemia due to chronic blood loss- Primary Iron deficiency anemia secondary to blood loss (chronic) documented in this encounter [facility] HealthcareEvaluation note* Diagnosis Iron deficiency anemia due to chronic blood loss- Primary Iron deficiency anemia secondary to blood loss (chronic) documented in this encounter [facility] note* Diagnosis Type 2 diabetes mellitus without complications ([facility]) Hyperlipidemia, unspecified ([facility]/HCC) documented in this encounter [facility]* Diagnosis Hyperlipidemia, unspecified ([facility]/HCC) Other bursitis of elbow, left elbow Depression, unspecified ([facility]) Type 2 diabetes mellitus without complications ([facility] [facility]) documented in this encounter [facility]* Diagnosis Iron deficiency anemia due to chronic blood loss- Primary Iron deficiency anemia secondary to blood loss (chronic) Current smoker Other hyperlipidemia ([facility]/HCC) Moderate persistent asthma without complication ([facility]/HCC) Type 2 diabetes mellitus without complication, without long-term current use of insulin ([facility]) Screening mammogram, encounter for Recurrent major depressive disorder, in full remission ([facility]) Asthma with COPD (chronic obstructive pulmonary disease) ([facility])- Primary Iron deficiency anemia due to chronic blood loss Iron deficiency anemia secondary to blood loss (chronic) Type 2 diabetes mellitus without complication, without long-term current use of insulin ([facility]/HCC) Primary hypertension ([facility]/HCC) Unspecified essential hypertension Asthma with COPD (chronic obstructive pulmonary disease) ([facility]/HCC)- Primary Primary hypertension (CMS/HCC) Unspecified essential [...] complication, without long-term current use of insulin ([facility]) Vitamin D deficiency Dermoid cyst of right ear Tobacco dependency Tobacco use disorder Primary hypertension (CMS/HCC)- Primary Unspecified essential hypertension Type 2 diabetes mellitus without complication, without long-term current use of insulin (CMS/HCC) Other hyperlipidemia (CMS/HCC) Asthma with COPD (chronic obstructive pulmonary disease) ([facility]) Non-recurrent acute serous otitis media of left ear Iron deficiency anemia due to chronic blood loss Iron deficiency anemia secondary to blood loss (chronic) documented in this encounter [facility] HealthcareEvaluation note* Diagnosis Iron deficiency anemia due to chronic blood loss- Primary Iron deficiency anemia secondary to blood loss (chronic) Current smoker Other hyperlipidemia (CMS/HCC) Moderate persistent asthma without complication ([facility]) Type 2 diabetes mellitus without complication, without long-term current use of insulin ([facility]) Screening mammogram, encounter for Recurrent major depressive disorder, in full remission ([facility]) Asthma with COPD (chronic obstructive pulmonary disease) ([facility])- Primary Iron deficiency anemia due to chronic blood loss Iron deficiency anemia secondary to blood loss (chronic) Type 2 diabetes mellitus without complication, without long-term current use of insulin ([facility]) Primary hypertension ([facility]/HCC) Unspecified essential hypertension Asthma with COPD (chronic obstructive pulmonary disease) ([facility]/HCC)- Primary Primary hypertension ([facility]/HCC) Unspecified essential hypertension Type 2 diabetes mellitus without complication, without long-term current use of insulin (CMS/HCC) Primary hypertension ([facility]/HCC)- Primary Unspecified essential hypertension Asthma with COPD (chronic obstructive pulmonary disease) ([facility]/HCC) Iron deficiency anemia due to chronic blood loss Iron deficiency anemia secondary to blood loss (chronic) Other hyperlipidemia (CMS/HCC) Type 2 diabetes mellitus without complication, without long-term current use of insulin ([facility]/HCC) Vitamin D deficiency Dermoid cyst of right ear Tobacco dependency Tobacco use disorder Primary hypertension (CMS/HCC)- Primary Unspecified essential hypertension Type 2 diabetes mellitus without complication, without long-term current use of insulin ([facility]) Other hyperlipidemia ([facility]) Asthma with COPD (chronic obstructive pulmonary disease) ([facility]) Non-recurrent acute serous otitis media of left ear Asthma with COPD (chronic obstructive pulmonary disease) ([facility]) documented in this encounter [facility] HealthcareEvaluation note* Diagnosis Iron deficiency anemia due to chronic blood loss- Primary Iron deficiency anemia secondary to blood loss (chronic) Current smoker Other hyperlipidemia ([facility]) Moderate persistent asthma without complication ([facility]) Type 2 diabetes mellitus without complication, without long-term current use of insulin ([facility]) Screening mammogram, encounter for Recurrent major depressive disorder, in full remission ([facility]) Asthma with COPD (chronic obstructive pulmonary disease) ([facility])- Primary Iron deficiency anemia due to chronic blood loss Iron deficiency anemia secondary to blood loss (chronic) Type 2 diabetes mellitus without complication, without long-term current use of insulin ([facility]) Primary hypertension ([facility] Unspecified essential hypertension Asthma with COPD (chronic obstructive pulmonary disease) ([facility])- Primary Primary hypertension ([facility]) Unspecified essential hypertension Type 2 diabetes mellitus without complication, without long-term current use of insulin ([facility]) Primary hypertension ([facility])- Primary Unspecified essential hypertension Asthma with COPD (chronic obstructive pulmonary disease) ([facility]) Iron deficiency anemia due to chronic blood loss Iron deficiency anemia secondary to blood loss (chronic) Other hyperlipidemia ([facility]) Type 2 diabetes mellitus without complication, without long-term current use of insulin ([facility]) Vitamin D deficiency Dermoid cyst of right ear Tobacco dependency Tobacco use disorder Primary hypertension ([facility])- Primary Unspecified essential hypertension Type 2 diabetes mellitus without complication, without long-term current use of insulin ([facility]) Other hyperlipidemia ([facility]) Asthma with COPD (chronic obstructive pulmonary disease) ([facility]) Non-recurrent acute serous otitis media of left ear Iron deficiency anemia due to chronic blood loss Iron deficiency anemia secondary to blood loss (chronic) documented in this encounter [facility] HealthcareEvaluation note* Diagnosis Acute hypoxic respiratory failure ([facility])- Primary Chronic obstructive pulmonary disease, unspecified COPD type ([facility] [place] Influenza A Influenza with other respiratory manifestations Aspiration pneumonia, unspecified aspiration pneumonia type, unspecified laterality, unspecified part of lung ([facility] [place] Depression, unspecified depression type Cigarette smoker Tobacco use disorder Type 2 diabetes mellitus without complication, without long-term current use of insulin ([facility] [place]) Anxiety Anxiety state, unspecified documented in this encounter [facility] System[facility]* Diagnosis Acute hypoxic respiratory failure ([facility] [place])- Primary Chronic obstructive pulmonary disease, unspecified COPD type ([facility] [place]) Influenza A Influenza with other respiratory manifestations Other abnormalities of gait and mobility documented in this encounter [facility]* Diagnosis Acute hypoxic respiratory failure ([facility] [place])- Primary Aspiration pneumonia, unspecified aspiration pneumonia type, unspecified laterality, unspecified part of lung ([facility] [place]) Chronic obstructive pulmonary disease, unspecified COPD type ([facility] [place]) Influenza A Influenza with other respiratory manifestations Type 2 diabetes mellitus without complication, without long-term current use of insulin ([facility] [place]) Other abnormalities of gait and mobility Anxiety Anxiety state, unspecified [facility]* Diagnosis Chronic obstructive pulmonary disease, unspecified COPD type ([facility] [place] Primary Influenza A Influenza with other respiratory manifestations Other abnormalities of gait and mobility Anxiety Anxiety state, unspecified Cigarette smoker Tobacco use disorder [facility]* Diagnosis Iron deficiency anemia due to chronic blood loss- Primary Iron deficiency anemia secondary to blood loss (chronic) Current smoker Other [place] Moderate persistent asthma without complication [place] [place] Type 2 diabetes mellitus without complication, without long-term current use of insulin [place] Screening mammogram, encounter for Recurrent major depressive disorder, in full remission ([facility] [place] Asthma with COPD (chronic obstructive pulmonary disease) ([facility] [place] Primary Iron deficiency anemia due to chronic blood loss Iron deficiency anemia secondary to blood loss (chronic) Type 2 diabetes mellitus without complication, without long-term current use of insulin [place] [place] Primary hypertension [place] [place] Unspecified essential hypertension Asthma with COPD (chronic obstructive pulmonary disease) ([facility] [place] Primary Primary hypertension [place] [place] Unspecified essential hypertension Type 2 diabetes mellitus without complication, without long-term current use of insulin ([facility] [place] Primary hypertension [place] [place] Primary Unspecified essential hypertension Asthma with COPD (chronic obstructive pulmonary disease) ([facility] [place] Iron deficiency anemia due to chronic blood [...] COPD type (CMS/HCC) Acute hypoxic respiratory failure ([facility]/HCC) Type 2 diabetes mellitus without complication, without long-term current use of insulin ([facility]/HCC) Primary hypertension ([facility]/HCC) Unspecified essential hypertension Benign neoplasm of cranial nerves ([facility]/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 (CMS/[facility]) documented in this encounter [facility] HealthcareEvaluation note* Diagnosis Iron deficiency anemia due to chronic blood loss- Primary Iron deficiency anemia secondary to blood loss (chronic) Current smoker Other hyperlipidemia (CMS/HCC) Moderate persistent asthma without complication ([facility]/HCC) Type 2 diabetes mellitus without complication, without long-term current use of insulin ([facility]) Screening mammogram, encounter for Recurrent major depressive disorder, in full remission ([facility]) Asthma with COPD (chronic obstructive pulmonary disease) ([facility]/HCC)- Primary Iron deficiency anemia due to chronic blood loss Iron deficiency anemia secondary to blood loss (chronic) Type 2 diabetes mellitus without complication, without long-term current use of insulin ([facility]) Primary hypertension (CMS/HCC) Unspecified essential hypertension Asthma with COPD (chronic obstructive pulmonary disease) ([facility]/HCC)- Primary Primary hypertension ([facility]/HCC) Unspecified essential hypertension Type 2 diabetes mellitus without complication, without long-term current use of insulin (CMS/HCC) Primary hypertension ([facility]/HCC)- Primary Unspecified essential hypertension Asthma with COPD (chronic obstructive pulmonary disease) ([facility]/HCC) Iron deficiency anemia due to chronic blood loss Iron deficiency anemia secondary to blood loss (chronic) Other hyperlipidemia (CMS/HCC) Type 2 diabetes mellitus without complication, without long-term current use of insulin ([facility]/HCC) Vitamin D deficiency Dermoid cyst of right ear Tobacco dependency Tobacco use disorder Primary hypertension (CMS/HCC)- Primary Unspecified essential hypertension Type 2 diabetes mellitus without complication, without long-term current use of insulin ([facility]) Other hyperlipidemia ([facility]) Asthma with COPD (chronic obstructive pulmonary disease) ([facility]) Non-recurrent acute serous otitis media of left ear Influenza A- Primary Influenza with other respiratory manifestations Chronic obstructive pulmonary disease, unspecified COPD type ([facility]) Acute hypoxic respiratory failure ([facility]) Type 2 diabetes mellitus without complication, without long-term current use of insulin ([facility]) Primary hypertension ([facility]) Unspecified essential hypertension Benign neoplasm of cranial nerves ([facility]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 ([facility]) Scalp laceration, sequela- Primary Cigarette nicotine dependence without complication COPD exacerbation ([facility]) Obstructive chronic bronchitis with exacerbation documented in this encounter [facility] HealthcareEvaluation note* Diagnosis Iron deficiency anemia due to chronic blood loss- Primary Iron deficiency anemia secondary to blood loss (chronic) Current smoker Other hyperlipidemia ([facility]) Moderate persistent asthma without complication ([facility]) Type 2 diabetes mellitus without complication, without long-term current use of insulin ([facility]) Screening mammogram, encounter for Recurrent major depressive disorder, in full remission ([facility]) Asthma with COPD (chronic obstructive pulmonary disease) ([facility])- Primary Iron deficiency anemia due to chronic blood loss Iron deficiency anemia secondary to blood loss (chronic) Type 2 diabetes mellitus without complication, without long-term current use of insulin ([facility]) Primary hypertension ([facility]) Unspecified essential hypertension Asthma with COPD (chronic obstructive pulmonary disease) ([facility])- Primary Primary hypertension ([facility]) Unspecified essential hypertension Type 2 diabetes mellitus without complication, without long-term current use of insulin ([facility]) Primary hypertension ([facility])- Primary Unspecified essential hypertension Asthma with COPD (chronic obstructive pulmonary disease) ([facility]) Iron deficiency anemia due to chronic blood loss Iron deficiency anemia secondary to blood loss (chronic) Other hyperlipidemia ([facility]) Type 2 diabetes mellitus without complication, without long-term current use of insulin ([facility]) Vitamin D deficiency Dermoid cyst of right ear Tobacco dependency Tobacco use disorder Primary hypertension ([facility])- Primary Unspecified essential hypertension Type 2 diabetes mellitus without complication, without long-term current use of insulin ([facility]) Other hyperlipidemia ([facility]) Asthma with COPD (chronic obstructive pulmonary disease) ([facility]) Non-recurrent acute serous otitis media of left ear Influenza A- Primary Influenza with other respiratory manifestations Chronic obstructive pulmonary disease, unspecified COPD type ([facility]) Acute hypoxic respiratory failure ([facility]) Type 2 diabetes mellitus without complication, without long-term current use of insulin ([facility]) Primary hypertension ([facility]) Unspecified essential hypertension Benign neoplasm of cranial nerves ([facility]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 ([facility]) Scalp laceration, sequela- Primary Cigarette nicotine dependence without complication COPD exacerbation ([facility]) Obstructive chronic bronchitis with exacerbation Type 2 diabetes mellitus without complication, without long-term current use of insulin ([facility])- Primary Chronic obstructive pulmonary disease, unspecified COPD type ([facility]) Primary hypertension ([facility]) Unspecified essential hypertension Vitamin D deficiency Iron deficiency anemia due to chronic blood loss Iron deficiency anemia secondary to blood loss (chronic) Cigarette nicotine dependence without complication Recurrent major depressive disorder, in full remission ([facility]) Generalized anxiety disorder ([facility]) Generalized anxiety disorder Screening mammogram, encounter for Other hyperlipidemia ([facility] Acute hypoxic respiratory failure ([facility]) documented in this encounter [facility] HealthcareEvaluation note* Diagnosis Iron deficiency anemia due to chronic blood loss- Primary Iron deficiency anemia secondary to blood loss (chronic) Current smoker Other hyperlipidemia Moderate persistent asthma without complication ([facility]) Type 2 diabetes mellitus without complication, without long-term current use of insulin Screening mammogram, encounter for Recurrent major depressive disorder, in full remission ([facility]) Asthma with COPD (chronic obstructive pulmonary disease) ([facility])- Primary Iron deficiency anemia due to chronic blood loss Iron deficiency anemia secondary to blood loss (chronic) Type 2 diabetes mellitus without complication, without long-term current use of insulin Primary hypertension ([facility]) Unspecified essential hypertension Asthma with COPD (chronic obstructive pulmonary disease) ([facility])- Primary Primary hypertension ([facility]) Unspecified essential hypertension Type 2 diabetes mellitus without complication, without long-term current use of insulin Primary hypertension ([facility])- Primary Unspecified essential hypertension Asthma with COPD (chronic obstructive pulmonary disease) ([facility]) Iron deficiency anemia due to chronic blood loss Iron deficiency anemia secondary to blood loss (chronic) Other hyperlipidemia Type 2 diabetes mellitus without complication, without long-term current use of insulin Vitamin D deficiency Dermoid cyst of right ear Tobacco dependency Tobacco use disorder Primary hypertension ([facility]/HCC)- Primary Unspecified essential hypertension Type 2 diabetes mellitus without complication, without long-term current use of insulin Other hyperlipidemia Asthma with COPD (chronic obstructive pulmonary disease) ([facility]) Non-recurrent acute serous otitis media of left ear Influenza A- Primary Influenza with other respiratory manifestations Chronic obstructive pulmonary disease, unspecified COPD type ([facility]) Acute hypoxic respiratory failure ([facility]) Type 2 diabetes mellitus without complication, without long-term current use of insulin Primary hypertension ([facility] Unspecified essential hypertension Benign neoplasm of cranial nerves ([facility] 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 ([facility]) Scalp laceration, sequela- Primary Cigarette nicotine dependence without complication COPD exacerbation ([facility]) Obstructive chronic bronchitis with exacerbation Type 2 diabetes mellitus without complication, without long-term current use of insulin- Primary Chronic obstructive pulmonary disease, unspecified COPD type ([facility]) Primary hypertension ([facility]) Unspecified essential hypertension Vitamin D deficiency Iron deficiency anemia due to chronic blood loss Iron deficiency anemia secondary to blood loss (chronic) Cigarette nicotine dependence without complication Recurrent major depressive disorder, in full remission ([facility]) Generalized anxiety disorder ([facility]) Generalized anxiety disorder Screening mammogram, encounter for Other hyperlipidemia Acute hypoxic respiratory failure ([facility]) Elevated TSH Other abnormal blood chemistry documented in this encounter [facility] HealthcareEvaluation note* Diagnosis Iron deficiency anemia due to chronic blood loss- Primary Iron deficiency anemia secondary to blood loss (chronic) Current smoker Other hyperlipidemia Moderate persistent asthma without complication ([facility]) Type 2 diabetes mellitus without complication, without long-term current use of insulin Screening mammogram, encounter for Recurrent major depressive disorder, in full remission ([facility]) Asthma with COPD (chronic obstructive pulmonary disease) ([facility])- Primary Iron deficiency anemia due to chronic blood loss Iron deficiency anemia secondary to blood loss (chronic) Type 2 diabetes mellitus without complication, without long-term current use of insulin Primary hypertension ([facility]) Unspecified essential hypertension Asthma with COPD (chronic obstructive pulmonary disease) ([facility])- Primary Primary hypertension ([facility]) Unspecified essential hypertension Type 2 diabetes mellitus without complication, without long-term current use of insulin Primary hypertension ([facility])- Primary Unspecified essential hypertension Asthma with COPD (chronic obstructive pulmonary disease) ([facility]/HCC) Iron deficiency anemia due to chronic blood loss Iron deficiency anemia secondary to blood loss (chronic) Other hyperlipidemia Type 2 diabetes mellitus without complication, without long-term current use of insulin Vitamin D deficiency Dermoid cyst of right ear Tobacco dependency Tobacco use disorder Primary hypertension ([facility]/HCC)- Primary Unspecified essential hypertension Type 2 diabetes mellitus without complication, without long-term current use of insulin Other hyperlipidemia Asthma with COPD (chronic obstructive pulmonary disease) ([facility]) Non-recurrent acute serous otitis media of left ear Influenza A- Primary Influenza with other respiratory manifestations Chronic obstructive pulmonary disease, unspecified COPD type ([facility]/HCC) Acute hypoxic respiratory failure ([facility]) Type 2 diabetes mellitus without complication, without long-term current use of insulin Primary hypertension ([facility]) Unspecified essential hypertension Benign neoplasm of cranial nerves ([facility]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 ([facility]) Scalp laceration, sequela- Primary Cigarette nicotine dependence without complication COPD exacerbation ([facility]) Obstructive chronic bronchitis with exacerbation Type 2 diabetes mellitus without complication, without long-term current use of insulin- Primary Chronic obstructive pulmonary disease, unspecified COPD type ([facility]) Primary hypertension ([facility]) Unspecified essential hypertension Vitamin D deficiency Iron deficiency anemia due to chronic blood loss Iron deficiency anemia secondary to blood loss (chronic) Cigarette nicotine dependence without complication Recurrent major depressive disorder, in full remission ([facility]) Generalized anxiety disorder ([facility]) Generalized anxiety disorder Screening mammogram, encounter for Other hyperlipidemia Acute hypoxic respiratory failure ([facility]) Iron deficiency anemia due to chronic blood loss Iron deficiency anemia secondary to blood loss (chronic) documented in this encounter [facility] HealthcareEvaluation note* Diagnosis Iron deficiency anemia due to chronic blood loss- Primary Iron deficiency anemia secondary to blood loss (chronic) Current smoker Other hyperlipidemia Moderate persistent asthma without complication ([facility]) Type 2 diabetes mellitus without complication, without long-term current use of insulin Screening mammogram, encounter for Recurrent major depressive disorder, in full remission ([facility]) Asthma with COPD (chronic obstructive pulmonary disease) ([facility])- Primary Iron deficiency anemia due to chronic blood loss Iron deficiency anemia secondary to blood loss (chronic) Type 2 diabetes mellitus without complication, without long-term current use of insulin Primary hypertension ([facility]) Unspecified essential hypertension Asthma with COPD (chronic obstructive pulmonary disease) ([facility]/HCC)- Primary Primary hypertension (CMS/HCC) Unspecified essential hypertension Type 2 diabetes mellitus without complication, without long-term current use of insulin Primary hypertension ([facility]/HCC)- Primary Unspecified essential hypertension Asthma with COPD (chronic obstructive pulmonary disease) ([facility]/HCC) Iron deficiency anemia due to chronic blood loss Iron deficiency anemia secondary to blood loss (chronic) Other hyperlipidemia Type 2 diabetes mellitus without complication, without long-term current use of insulin Vitamin D deficiency Dermoid cyst of right ear Tobacco dependency Tobacco use disorder Primary hypertension ([facility]/HCC)- Primary Unspecified essential hypertension Type 2 diabetes mellitus without complication, without long-term current use of insulin Other hyperlipidemia Asthma with COPD (chronic obstructive pulmonary disease) ([facility]) Non-recurrent acute serous otitis media of left ear Influenza A- Primary Influenza with other respiratory manifestations Chronic obstructive pulmonary disease, unspecified COPD type ([facility]/HCC) Acute hypoxic respiratory failure ([facility]) Type 2 diabetes mellitus without complication, without long-term current use of insulin Primary hypertension ([facility]) Unspecified essential hypertension Benign neoplasm of cranial nerves ([facility]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 ([facility]) Scalp laceration, sequela- Primary Cigarette nicotine dependence without complication COPD exacerbation ([facility]) Obstructive chronic bronchitis with exacerbation Type 2 diabetes mellitus without complication, without long-term current use of insulin- Primary Chronic obstructive pulmonary disease, unspecified COPD type ([facility]/HCC) Primary hypertension ([facility]) Unspecified essential hypertension Vitamin D deficiency Iron deficiency anemia due to chronic blood loss Iron deficiency anemia secondary to blood loss (chronic) Cigarette nicotine dependence without complication Recurrent major depressive disorder, in full remission ([facility]) Generalized anxiety disorder ([facility]) Generalized anxiety disorder Screening mammogram, encounter for Other hyperlipidemia Acute hypoxic respiratory failure ([facility]/HCC) Asthma with COPD (chronic obstructive pulmonary disease) ([facility]) Chronic obstructive pulmonary disease, unspecified COPD type ([facility]/HCC) documented in this encounter [facility] HealthcareEvaluation note* Diagnosis Iron deficiency anemia due to chronic blood loss- Primary Iron deficiency anemia secondary to blood loss (chronic) Current smoker Other hyperlipidemia Moderate persistent asthma without complication ([facility]) Type 2 diabetes mellitus without complication, without long-term current use of insulin Screening mammogram, encounter for Recurrent major depressive disorder, in full remission ([facility]/HCC) Asthma with COPD (chronic obstructive pulmonary disease) (CMS/HCC)- Primary Iron deficiency anemia due to chronic blood loss Iron deficiency anemia secondary to blood loss (chronic) Type 2 diabetes mellitus without complication, without long-term current use of insulin Primary hypertension ([facility]/HCC) Unspecified essential hypertension Asthma with COPD (chronic obstructive pulmonary disease) ([facility]/HCC)- Primary Primary hypertension (CMS/HCC) Unspecified essential hypertension Type 2 diabetes mellitus without complication, without long-term current use of insulin Primary hypertension ([facility]/HCC)- Primary Unspecified essential hypertension Asthma with COPD (chronic obstructive pulmonary disease) ([facility]/HCC) Iron deficiency anemia due to chronic blood loss Iron deficiency anemia secondary to blood loss (chronic) Other hyperlipidemia Type 2 diabetes mellitus without complication, without long-term current use of insulin Vitamin D deficiency Dermoid cyst of right ear Tobacco dependency Tobacco use disorder Primary hypertension ([facility]/HCC)- Primary Unspecified essential hypertension Type 2 diabetes mellitus without complication, without long-term current use of insulin Other hyperlipidemia Asthma with COPD (chronic obstructive pulmonary disease) ([facility]) Non-recurrent acute serous otitis media of left ear Influenza A- Primary Influenza with other respiratory manifestations Chronic obstructive pulmonary disease, unspecified COPD type ([facility]/HCC) Acute hypoxic respiratory failure ([facility]) Type 2 diabetes mellitus without complication, without long-term current use of insulin Primary hypertension ([facility]) Unspecified essential hypertension Benign neoplasm of cranial nerves ([facility]/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 ([facility]) Scalp laceration, sequela- Primary Cigarette nicotine dependence without complication COPD exacerbation ([facility]) Obstructive chronic bronchitis with exacerbation Type 2 diabetes mellitus without complication, without long-term current use of insulin- Primary Chronic obstructive pulmonary disease, unspecified COPD type ([facility]/HCC) Primary hypertension ([facility]) Unspecified essential hypertension Vitamin D deficiency Iron deficiency anemia due to chronic blood loss Iron deficiency anemia secondary to blood loss (chronic) Cigarette nicotine dependence without complication Recurrent major depressive disorder, in full remission ([facility]/HCC) Generalized anxiety disorder ([facility]) Generalized anxiety disorder Screening mammogram, encounter for Other hyperlipidemia Acute hypoxic respiratory failure ([facility]/HCC) Acquired hypothyroidism ([facility]/HCC)- Primary Unspecified hypothyroidism documented in this encounter [facility] HealthcareEvaluation note* Diagnosis Iron deficiency anemia [...] Tobacco dependency Tobacco use disorder Primary hypertension ([facility]/HCC)- Primary Unspecified essential hypertension Type 2 diabetes mellitus without complication, without long-term current use of insulin Other hyperlipidemia Asthma with COPD (chronic obstructive pulmonary disease) ([facility]/HCC) Non-recurrent acute serous otitis media of left ear Influenza A- Primary Influenza with other respiratory manifestations Chronic obstructive pulmonary disease, unspecified COPD type (CMS/HCC) Acute hypoxic respiratory failure ([facility]) Type 2 diabetes mellitus without complication, without long-term current use of insulin Primary hypertension ([facility]/HCC) Unspecified essential hypertension Benign neoplasm of cranial nerves ([facility]/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 ([facility]) Scalp laceration, sequela- Primary Cigarette nicotine dependence without complication COPD exacerbation (CMS/HCC) Obstructive chronic bronchitis with exacerbation Type 2 diabetes mellitus without complication, without long-term current use of insulin- Primary Chronic obstructive pulmonary disease, unspecified COPD type (CMS/HCC) Primary hypertension ([facility]/HCC) Unspecified essential hypertension Vitamin D deficiency Iron deficiency anemia due to chronic blood loss Iron deficiency anemia secondary to blood loss (chronic) Cigarette nicotine dependence without complication Recurrent major depressive disorder, in full remission (CMS/HCC) Generalized anxiety disorder (CMS/HCC) Generalized anxiety disorder Screening mammogram, encounter for Other hyperlipidemia Acute hypoxic respiratory failure ([facility]/HCC) Depression, unspecified (CMS/HCC) documented in this encounter [facility] HealthcareEvaluation note* Diagnosis Iron deficiency anemia due to chronic blood loss- Primary Iron deficiency anemia secondary to blood loss (chronic) Current smoker Other hyperlipidemia Moderate persistent asthma without complication ([facility]/HCC) Type 2 diabetes mellitus without complication, without long-term current use of insulin Screening mammogram, encounter for Recurrent major depressive disorder, in full remission ([facility]) Asthma with COPD (chronic obstructive pulmonary disease) ([facility])- Primary Iron deficiency anemia due to chronic blood loss Iron deficiency anemia secondary to blood loss (chronic) Type 2 diabetes mellitus without complication, without long-term current use of insulin Primary hypertension ([facility]/HCC) Unspecified essential hypertension Asthma with COPD (chronic obstructive pulmonary disease) ([facility])- Primary Primary hypertension ([facility]/HCC) Unspecified essential hypertension Type 2 diabetes mellitus without complication, without long-term current use of insulin Primary hypertension ([facility])- Primary Unspecified essential hypertension Asthma with COPD (chronic obstructive pulmonary disease) ([facility]) Iron deficiency anemia due to chronic blood loss Iron deficiency anemia secondary to blood loss (chronic) Other hyperlipidemia Type 2 diabetes mellitus without complication, without long-term current use of insulin Vitamin D deficiency Dermoid cyst of right ear Tobacco dependency Tobacco use disorder Primary hypertension ([facility]/HCC)- Primary Unspecified essential hypertension Type 2 diabetes mellitus without complication, without long-term current use of insulin Other hyperlipidemia Asthma with COPD (chronic obstructive pulmonary disease) ([facility]) Non-recurrent acute serous otitis media of left ear Influenza A- Primary Influenza with other respiratory manifestations Chronic obstructive pulmonary disease, unspecified COPD type ([facility]) Acute hypoxic respiratory failure ([facility]) Type 2 diabetes mellitus without complication, without long-term current use of insulin Primary hypertension ([facility]/HCC) Unspecified essential hypertension Benign neoplasm of cranial nerves ([facility]/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 ([facility]) Scalp laceration, sequela- Primary Cigarette nicotine dependence without complication COPD exacerbation ([facility]) Obstructive chronic bronchitis with exacerbation Type 2 diabetes mellitus without complication, without long-term current use of insulin- Primary Chronic obstructive pulmonary disease, unspecified COPD type ([facility]/HCC) Primary hypertension ([facility]) Unspecified essential hypertension Vitamin D deficiency Iron deficiency anemia due to chronic blood loss Iron deficiency anemia secondary to blood loss (chronic) Cigarette nicotine dependence without complication Recurrent major depressive disorder, in full remission ([facility]) Generalized anxiety disorder (CMS/HCC) Generalized anxiety disorder Screening mammogram, encounter for Other hyperlipidemia Acute hypoxic respiratory failure (CMS/[facility]) Osteoarthritis, unspecified osteoarthritis type, unspecified site- Primary documented in this encounter [facility] HealthcareEvaluation note* Diagnosis Iron deficiency anemia [...] pulmonary disease) (HCC) documented in this encounter [facility] HealthcareEvaluation note* Diagnosis Iron deficiency anemia [...] esophagitis Depression, unspecified documented in this encounter [facility] HealthcareEvaluation note* Diagnosis Iron deficiency anemia [...] COPD type (HCC) documented in this encounter [facility] HealthcareEvaluation note* Diagnosis Iron deficiency anemia [...] abnormal blood chemistry documented in this encounter [facility] HealthcareEvaluation note* Diagnosis Iron deficiency anemia [...] left lower extremity documented in this encounter [facility] HealthcareEvaluation note* Diagnosis Onset Date Resolution Status Admit Date Edema of both lower extremities acuteSeptember 2024 10:36amElevated TSHacuteSept2024 10:36am Generalized anxiety disorderacuteSept2024 10:36amIron deficiency anemia due to chronic blood lossacuteSept2024 10:36amRecurrent major depressive disorder, in full remissionacuteSept2024 10:36am [facility] Work Phone: Hospital Discharge instructions No data available for this section [facility] instructions[facility]ulatory Orders* Referral to Wound Care Time Frame: 08/22/25, Location: None [facility] Work Phone: InstructionsNot on filedocumented in this encounter [facility]ructionsNot on filedocumented in this encounter [facility]ructionsNot on filedocumented in this encounter [facility] SystemProgress note No data available for this section [facility] System[facility] for referral (narrative)* Consultation (Routine) - Pending ReviewSpecialtyDiagnoses / ProceduresReferred By Contact Referred To ContactGastroenterology Diagnoses Iron deficiency anemia due to chronic blood loss Procedures TX OFFICE/OUTPATIENT NEW HIGH MDM 60 MINUTES Daniel Cardoso, GREG [address] [place] [id number] Referral IDStatusReasonStart DateExpiration DateVisits RequestedVisits [id number] Review Specialty Services Required / SONI Granger for referral (narrative)No reason for referral information availableCorey Hospital Work Phone: Summary Purpose Family History Relationship Condition Age at Onset Recorded Date/T hiram father Heart disease Unknown brotherDiabetes mellitusUnknownHeart diseaseUnknown Advance Directives Advance Directive Response Recorded Date/ [...] Acute hypoxic respiratory failure r 2024 9:05pm Aspiration pneumonia December 09, 2024 [...] +, Exacerbation COPD December 13, 2024 12:54pm [facility] 12/09January 04, 2025 8:55am Reason for Visit [...] Admit Date Edema of both lower extremities [facility] 2024 10:36am Elevated TSH July 31, 2025 [...] Admit Date Edema of both lower extremities [facility] 2024 10:36am Elevated TSH July 31, 2025 10:36am Generalized anxiety disorder July 152024 10:36am Iron deficiency anemia due to chronic bl ood loss July 31, 2025 10:36am Recurrent major depressive disorder, in full remission July 31, 2025 10:36am Edema of both lower extremities August 22, 2025 8:52am Iron deficiency anemia due to chronic bl ood loss August 22, 2025 8:52am Chief Complaint Admit Date Established Patient July 31, 2025 10:36am 3W August 22, 2025 8: 52am 3W September 12, 2025 1 :01pm Reason for Visit Admit Date Edema of both lower extremities [facility] 2024 10:36am Elevated TSH July 31, 2025 [...] 1:01pm Primary hypertension September 12, 2025 1:01pm Additional Source Comments INFORMATION SOURCE (unrecogn ized section and content) DATE CREATED AUTHOR 10/22/2018 [employer] DATE CREATED AUTHOR AUTHOR'S ORGANIZ ATION 01/09/2023 [facility] DATE CREATED AUTHOR AUTHOR'S ORGANIZ ATION 12/17/2023 [facility] DATE CREATED AUTHOR AUTHOR'S ORGANIZ ATION 12/17/2024 [facility] DATE CREATED AUTHOR AUTHOR'S ORGANIZ ATION 06/28/2025 [facility] DATE CREATED AUTHOR AUTHOR'S ORGANIZ ATION 07/20/2025 [facility] Patient Care team informatio n (unrecognized section and content) Team MemberRelationshipSpecialtyStart DateEnd Date Shaikh Sánchez MD [address] [place] [address] PCP - Linda HI11/14/23 Shaikh Sánchez MD [address] [place] [address] PCP - GeneralInternal Medicine01/16/24 Zamzam Wheeler HOST/HOSTESS [address] [place] [address] Nurse PractitionerInternal Medicine01/16/24 Kirstin Carreon LPN Licensed Practical NurseFamily Medicine07/27/24Team MemberRelationshipSpecialty Start DateEnd Date Shaikh Sánchez MD [address] [place] [address] PCP - Linda MORALES11/14/23 Ian Soares MD [address] [place] [address] PCP - GeneralFamily Hhcdqhue43/29/24 Zamzam Wheeler NP [address] [place] [address] Nurse PractitionerInternal Medicine01/16/24 Kirstin Carreon LPN Licensed Practical NurseFamily Medicine07/27/24 Daniel Cardoso NP [address] [place] [address] Nurse PractitionerFamily Hkxfnczv38/29/24Team MemberRelationshipSpecialtyStart DateEnd Date Shaikh Sánchez MD [address] [place] [address] PCP - Linda MORALES11/14/23 Ian Soares MD [address] [place] [address] PCP - GeneralFamily Bjmvfzwj81/29/24 Zamzam Wheeler NP [address] [place] [address] Nurse PractitionerInternal Medicine01/16/24 Kirstin Carreon LPN Licensed Practical NurseFamily Medicine07/27/24 Daniel Cardoso, GREG [address] [place] [address] Nurse PractitionerFamily Cifzrjbj51/29/24Team MemberRelationshipSpecialtyStart DateEnd Date Shaikh Sánchez MD [address] [place] [address] PCP - [place]11/14/23 Ian Soares MD [address] [place] [address] PCP - GeneralFamily Lfvwanoj74/29/24 Zamzam Wheeler NP [address] [place] [address] Nurse PractitionerInternal Medicine01/16/24 Kirstin Crareon LPN Licensed Practical NurseFamily Medicine07/27/24 Daniel Cardoso, GREG [address] [place] [address] Nurse PractitionerFamily Tvtdpcbt78/29/24Team MemberRelationshipSpecialtyStart DateEnd Date Shaikh Sánchez MD [address] [place] [address] PCP - Linda MORALES11/14/23 Ian Soares MD [address] [place] [address] PCP - GeneralFamily Brswpvlr12/29/24 Zamzam Wheeler, HOST/HOSTESS [address] [place] [address] Nurse PractitionerInternal Medicine01/16/24 Kirstin Carreon LPN Licensed Practical NurseFamily Medicine07/27/24 Daniel Cardoso, GREG [address] [place] [address] Nurse PractitionerFamily Rajueuhm02/29/24Team MemberRelationshipSpecialtyStart DateEnd Date Shaikh Sánchez MD [address] [place] [address] PCP - Linda HI11/14/23 Shaikh Sánchez MD [address] [place] [address] PCP - GeneralInternal Medicine01/16/24 Zamzam Wheeler, HOST/HOSTESS [address] [place] [address] Nurse PractitionerInternal Medicine01/16/24 Gustavo Romero LPN Licensed Practical NurseFamily Medicine07/04/24Team MemberRelationshipSpecialty Start DateEnd Date Shaikh Sánchez MD [address] [place] [address] PCP - [place]11/14/23 Ian Soares MD [address] [place] [address] PCP - GeneralFamily Goulundy69/29/24 Zamzam Wheeler, HOST/HOSTESS [address] [place] [address] Nurse PractitionerInternal Medicine01/16/24 Daniel Cardoso NP [address] [place] [address] Nurse PractitionerFamily Lnvkrlhz62/29/24 Arturo Chanel [facility]09/24/24Team MemberRelationshipSpecialtyStart DateEnd Date Shaikh Sánchez MD [address] [place] [address] PCP - Linda HI11/14/23 Shaikh Sánchez MD [address] [place] [address] PCP - GeneralInternal Medicine01/16/24 Zamzam Wheeler, HOST/HOSTESS [address] [place] [address] Nurse PractitionerInternal Medicine01/16/24 Gustavo Romero LPN Licensed Practical NurseFamily Medicine07/04/24Team MemberRelationshipSpecialty Start DateEnd Date Shaikh Sánchez MD [address] [place] [address] PCP - Linda HI11/14/23 Shaikh Sánchez MD [address] [place] [address] PCP - GeneralInternal Medicine01/16/24 Zamzam Wheeler, HOST/HOSTESS [address] [place] [address] Nurse PractitionerInternal Medicine01/16/24 Gustavo Romero LPN Licensed Practical NurseFamily Medicine07/04/24Team MemberRelationshipSpecialty Start DateEnd Date Shaikh Sánchez MD [address] [place] [address] PCP - Linda HI11/14/23 Shaikh Sánchez MD [address] [place] [address] [facility] - [facility]01/16/24 Zamzam Wheeler HOST/HOSTESS [address] [place] [id number] Nurse PractitionerHonorhealth [facility]or[facility] Medical Centernal [facility]01/16/24 Gustavo Romero LPN Licensed Practical NurseFamily [facility]07/04/24Team MemberRelationshipSpecialty Start DateEnd Date Shaikh Sánchez MD [address] [place] [address] PCP - Linda HI11/14/23 Shaikh Sánchez MD [address] [place] [address] PCP - GeneralInternal Medicine01/16/24 Zamzam Wheeler, GREG [address] [place] [address] Nurse PractitionerInternal Medicine01/16/24 Kirstin Carreon LPN Licensed Practical NurseFamily Medicine07/27/24Team MemberRelationshipSpecialty Start DateEnd Date Shaikh Sánchez MD [address] [place] [address] PCP - Linda HI11/14/23 Ian Soares MD [address] [place] [address] PCP - GeneralFamily Qrxibgow12/29/24 Zamzam Wheeler NP [address] [place] [address] Nurse PractitionerInternal Medicine01/16/24 Daniel Cardoso NP [address] [place] [address] Nurse PractitionerFamily Rrrtcrpb73/29/24 Arturo Chanel MA Family Ezjdsovx10/11/24Team MemberRelationshipSpecialtyStart DateEnd Date Shaikh Sánchez MD [address] [place] [address] PCP - Linda HI11/14/23 Ian Soares MD [address] [place] [address] PCP - GeneralFamily Gnkvrmcx94/29/24 Zamzam Wheeler NP [address] [place] [address] Nurse PractitionerInternal Medicine01/16/24 Daniel Cardoso NP [address] [place] [address] [facility]Ad[facility]09/11/24 Arturo Chanel MA [facility]09/24/24Team MemberRelationshipSpecialtyStart DateEnd Date Shaikh Sánchez MD [address] [place] [address] PCP - [facility]11/14/23 Ian Soares MD [address] [place] [address] PCP - GeneralAdventhealth [facility]09/11/24 Zamzam Wheeler NP [address] [place] [address] Nurse PractitionerInternal [facility]01/16/24 Daniel Cardoso NP [address] [place] [address] Nurse PractitionerFaHabersham Medical Center09/11/24 Arturo Chanel MA [facility]09/24/24 Team Status: Active Member Role Status Dates LINDA FrancoisC Primary Care Provider Ac tive Team Status: Inactive Member Role Status Dates Daniel Cardoso HOST/HOSTESS-C Primary Care Provider Ac tive Start: December 09, 2024 End: December 14, 2024Oanh Larson ProviderActiveStart: December 09, 2024 End: December 14Huang Camarena ProviderActiveStart: December 09, 2024 End: December 14Socorro Nixon ProviderActiveStart: December 09, 2024 End: December 14, 2024Socorro Branham ProviderActiveStart: December 09, 2024 End: December 14, 2024Socorro Webb ProviderActiveStart: December 09, 2024 End: December 14, 2024Jose Smith ProviderActiveStart: December 09, 2024 End: December 14enedict Sarthak Mcguire Jr, DOOther ProviderActiveStart: December 09, 2024 End: December 14Socorro Diehl ProviderActiveStart: December 09, 2024 End: December 14, 2024 Team Status: Active Member Role Status Dates Daniel Cardoso NP-C Primary Care Provider Ac tive Start: December 10, 2024 Oanh Larson ProviderActiveStart: December 10, 2024 Socorro Laureano ProviderActiveStart: December 10, 2024 Socorro Cruz ProviderActiveStart: December 10, 2024 Huang Hinkle ProviderActiveStart: December 10, 2024 Team Status: Active Member Role Status Dates Daniel Cardoso NP-C Primary Care Provider Ac tive Start: December 10, 2024 Oanh Larson ProviderActiveStart: December 10, 2024 Huang Laureano Provider, Other ProviderActiveStart: December 10, 2024 Dianne Rodrigues RNOther ProviderActiveStart: December 10, 2024 Prakash Sena MDOther ProviderActiveStart: December 10, 2024 Gildardo Pastor MDOther ProviderActiveStart: December 10, 2024 Krissy Cortez MDOther ProviderActiveStart: December 10, 2024 Socorro Cruz ProviderActiveStart: December 10, 2024 Team Status: Active Member Role Status Dates Daniel Cardoso , HOST/HOSTESS-C Primary Care Provider Ac tive Start: December 13, 2024 Oanh Larson ProviderActiveStart: December 13, 2024 Socorro Cruz ProviderActiveStart: December 13, 2024 Cecilia Ruiz MDOther ProviderActiveStart: December 13, 2024 Socorro Branham ProviderActiveStart: December 13, 2024 Socorro Webb ProviderActiveStart: December 13, 2024 Ilana Mendoza APRNOther ProviderActiveStart: December 13, 2024 Hubert Mcguire Jr, DOOther ProviderActiveStart: December 13, 2024 Nimco Toribioending Provider, Other ProviderActiveStart: December 13, 2024 Team MemberRelationshipSpecialtyStart DateEnd Date Gianna Isabel MD PCP - GeneralFamily Medicine02/07/17Team MemberRelationshipSpecialtyStart DateEnd Date Gianna Isabel MD PCP - GeneralFamily Medicine02/07/17Team MemberRelationshipSpecialtyStart DateEnd Date Gianna Isabel MD PCP - GeneralChi [facility]ly Medicine02/07/17 Team Status: Inactive Member Role Status Dates Daniel Cardoso , HOST/HOSTESS-C Primary Care Provider Ac tive Start: December 09, 2024 End: December 14, 2024Oanh Larson ProviderActiveStart: December 09, 2024 End: December 14Huang Camarena ProviderActiveStart: December 09, 2024 End: December 14, 2024Socorro Branham ProviderActiveStart: December 09, 2024 End: December 14, 2024Ryan Arshad MDOther ProviderActiveStart: December 09, 2024 End: December 14, 2024Ilana Mendoza , APRNOther ProviderActiveStart: December 09, 2024 End: December 14enedijolene Mcguire Jr DOOther ProviderActiveStart: December 09, 2024 End: December 14Socorro Diehl ProviderActiveStart: December 09, 2024 End: December 14kelsie Ruiz MDOther ProviderActiveStart: December 09, 2024 End: December 14, 2024 Team Status: Active Member Role Status Dates Daniel Cardoso HOST/HOSTESS-C Primary Care Provider Ac tive Start: December 10, 2024 Neville Wakefield ProviderActiveStart: December 10, 2024 Team Status: Active Member Role Status Dates Daniel Cardoso HOST/HOSTESS-C Primary Care Provider Ac tive Start: December 10, 2024 Delio Larsonit ProviderActiveStart: December 10, 2024 Huang Laureano Provider, Other ProviderActiveStart: December 10, 2024 Dianne Rodrigues RNOther ProviderActiveStart: December 10, 2024 Prakash Sena MDOther ProviderActiveStart: December 10, 2024 Gildardo Pastor MDOther ProviderActiveStart: December 10, 2024 Krissy Cortez MDOther ProviderActiveStart: December 10, 2024 Daniel Garza MDOther ProviderActiveStart: December 10, 2024 Roge Hadley MDActiveStart: December 10, 2024 Team Status: Inactive Member Role Status Dates Daniel Cardoso HOST/HOSTESS-C Primary Care Provider Ac tive Start: January 04, 2025 End: January 04, 2025Huang Hinkle ProviderActiveStart: January 04, 2025 End: January 04, 2025Team MemberRelationshipSpecialtyStart DateEnd Date Ian Soares MD [address] [place] [address] [facility] - [facility] Euizgiki84/29/24 Zamzam Wheeler NP Nurse Pract[facility]erJordan [facility]01/16/24 Daniel Cardoso NP [address] [place] [address] Nurse PractitionerAdventhealth [facility]09/11/24 [facility]el[facility]09/24/24Team MemberRelationshipSpecialtyStart DateEnd Date Ian Soares MD [address] [place] [address] PCP - [facility]09/11/24 Zamzam Wheeler NP Nurse PractitionerJordan [facility] Medical Center01/16/24 Daniel Cardoso NP [address] [place] [address] Nurse PractitionerAdventhealth [facility]09/11/24 [facility]elWh[facility]beyHealth [facility]09/24/24Team MemberRelationshipSpecialtyStart DateEnd Date Shaikh Sánchez MD [address] [place] [address] PCP - [facility]11/14/23 Ian Soares MD [address] [place] [address] PCP - [facility]09/11/24 Zamzam Wheeler NP [address] [place] [address] Nurse PractitionerInternal Medicine01/16/24 Daniel Cardoso NP [address] [place] [address] Nurse PractitionerFamily Jhiavirn88/29/24 Arturo Chanel MA [facility]09/24/24Team MemberRelationshipSpecialtyStart DateEnd Date Shaikh Sánchez MD [address] [place] [address] PCP - [place]11/14/23 Ian Soares MD [address] [place] [address] PCP - Generalmily Tgentcgi53/29/24 Zamzam Wheeler NP [address] [place] [address] Nurse PractitionerInternal Medicine01/16/24 Daniel Cardoso NP [address] [place] [address] Nurse PractitionerFautly Xcwurwps73/29/24 Arturo Chanel MA [facility]09/24/24Team MemberRelationshipSpecialtyStart DateEnd Date Shaikh Sánchez MD [address] [place] [address] PCP - Linda HI11/14/23 Ian Soares MD [address] [place] [address] PCP - GeneralFamily Hhbepcax67/29/24 Zamzam Wheeler NP [address] [place] [address] Nurse PractitionerInternal [facility]01/16/24 Arturo Chanel, CARMEN [facility]09/24/24 La Pack NP [address] [place] [address] Nurse PractitionerThe [facility] Medicine02/06/25Team MemberRelationshipSpecialtyStart DateEnd Date Shaikh Sánchez MD [address] [place] [address] PCP - [facility]11/14/23 Ian Soares MD [address] [place] [address] PCP - GeneralChi [facility]ly Dibckntr36/29/24 Zamzam Wheeler NP [address] [place] [address] Nurse PractitionerInternal Medicine01/16/24 Arturo Chanel, [facility]09/24/24 La Pack NP [address] [place] [address] Nurse PractitionerAdventhealth [facility]02/06/25Te MemberRelationshipSpecialtyStart DateEnd Date Shaikh Sánchez MD [address] [place] [address] PCP - Linda HI11/14/23 Ian Soares MD [address] [place] [address] PCP - GeneralFamily Wbrxbdvl26/29/24 Zamzam Wheeler, HOST/HOSTESS [address] [place] [address] Nurse PractitionerInternal Medicine01/16/24 Arturo Chanel, CARMEN [facility]09/24/24 La Pack NP [address] [place] [address] Nurse Practitionermily Medicine02/06/25Team MemberRelationshipSpecialtyStart DateEnd Date Shaikh Sánchez MD [address] [place] [address] PCP - [place] HI11/14/23 Ian Soares MD [address] [place] [address] PCP - GeneralFamily Hsepjkmu06/29/24 Zamzam Wheeler HOST/HOSTESS [address] [place] [address] Nurse PractitionerInternal Medicine01/16/24 Arturo Chanel, CARMEN [facility]09/24/24 La Pack NP [address] [place] [address] Nurse PractitionerFami Medicine02/06/25Team MemberRelationshipSpecialtyStart DateEnd Date Shaikh Sánchez MD [address] [place] [address] PCP - [place] HI11/14/23 Ian Soares MD [address] [place] [address] [facility] - [facility] Ztigyfcr21/29/24 Zamzam Wheeler NP [address] [place] [address] Nurse PractitionerInternal Medicine01/16/24 Arturo Chanel [facility]09/24/24 La Pack NP [address] [place] [address] Nurse PractitionerAdventhealth [facility]02/06/25Team MemberRelationshipSpecialtyStart DateEnd Date Shaikh Sánchez MD [address] [place] [address] PCP - [place] HI11/14/23 Ian Soares MD [address] [place] [address] [facility] - [facility] Mbflginz15/29/24 Zamzam Wheeler HOST/HOSTESS [address] [place] [address] Nurse PractitionerHonorhealth [facility] Medical Centernal Medicine01/16/24 Arturo Chanel MA Family Kydzcdft33/11/24 La Pack, GREG [address] [place] [address] Nurse PractitionerFamily Medicine02/06/25Team MemberRelationshipSpecialtyStart DateEnd Date Shaikh Sánchez MD [address] [place] [address] PCP - [place] HI11/14/23 Ian Soares MD [address] [place] [address] PCP - GeneralFamily Wxmyunvx13/29/24 Zamzam Wheeler NP [address] [place] [address] [facility]01/16/24 Arturo Chanel MA [facility]09/24/24 La Pack, GREG [address] [place] [address] Nurse PractitionerChi Health [facility] Medicine02/06/25Team MemberRelationshipSpecialtyStart DateEnd Date Shaikh Sánchez MD [address] [place] [address] PCP - [place] HI11/14/23 Ian Soares MD [address] [place] [address] PCP - GeneralFamily Oyzwbdqs52/29/24 Zamzam Wheeler NP [address] [place] [address] Nurse PractitionerInternal Medicine01/16/24 Arturo Chanel MA [address] [place] [address] [facility]09/24/24 La Pack, GREG [address] [place] [address] Nurse PractitionerAdventhealth [facility]02/06/25Te MemberRelationshipSpecialtyStart DateEnd Date Shaikh Sánchez MD [address] [place] [address] PCP - [facility]11/14/23 Ian Soares MD [address] [place] [address] PCP - GeneralAd[facility]health [facility]09/11/24 Zamzam Wheeler NP [address] [place] [address] Nurse PractitionerInternal Medicine01/16/24 Arturo Chanel MA [address] [place] [address] [facility]09/24/24 La Pack NP [address] [place] [address] Nurse PractitionerAd[facility]health [facility]02/06/25Team MemberRelationshipSpecialtyStart DateEnd Date Shaikh Sánchez MD [address] [place] [address] PCP - [place] HI11/14/23 Ian Soares MD [address] [place] [address] [facility] - [facility] Jiarnnez10/29/24 Zamzam Wheeler, HOST/HOSTESS [address] [place] [address] Nurse [facility]01/16/24 Arturo Chanel, [place] [address] [place] [address] Family Rvklrzip49/11/24 La Pack NP [address] [place] [address] Nurse PractitionerAd[facility]health [facility]02/06/25Team MemberRelationshipSpecialtyStart DateEnd Date Shaikh Sánchez MD [address] [place] [address] PCP - [place] HI11/14/23 Ian Soares MD [address] [place] [address] PCP - [facility] Rtssztcc78/29/24 Zamzam Wheeler, HOST/HOSTESS [address] [place] [address] Nurse PractitionerInternal [facility]01/16/24 Arturo Chanel MA [address] [place] [address] [facility]09/24/24 La Pack NP [address] [place] [address] Nurse PractitionerAd[facility]health [facility]02/06/25Team MemberRelationshipSpecialtyStart DateEnd Date Shaikh Sánchez MD [address] [place] [address] PCP - [facility]11/14/23 Ian Soares MD [address] [place] [address] PCP - GeneralAd[facility]health [facility]09/11/24 Zamzam Wheeler NP [address] [place] [address] Nurse PractitionerInternal [facility]01/16/24 Arturo Chanel MA [address] [place] [address] [facility]09/24/24 La Pack NP [address] [place] [address] Nurse PractitionerAd[facility]health [facility]02/06/25Te MemberRelationshipSpecialtyStart DateEnd Date Shaikh Sánchez MD [address] [place] [address] PCP - [place]11/14/23 Ian Soares MD [address] [place] [address] PCP - GeneralFamily Lwmjmmtg88/29/24 Zamzam Wheeler HOST/HOSTESS [address] [place] [address] Nurse PractitionerInternal Medicine01/16/24 Arturo Chanel, [place] [address] [place] [address] Family Awarlwpr74/11/24 La Pack NP [address] [place] [address] Nurse PractitionerAdventhealth [facility]02/06/25Team MemberRelationshipSpecialtyStart DateEnd Date Shaikh Sánchez MD [address] [place] [address] PCP - [place]11/14/23 Ian Soares MD [address] [place] [address] PCP - GeneralFami Okbbarde48/29/24 Zamzam Wheeler NP [address] [place] [address] Nurse PractitionerInternal Medicine01/16/24 La Pack NP [address] [place] [address] Nurse PractitionerFapeter [facility] Medicine02/06/25 Team Status: Active Member Role Status Dates La Pack , HOST/HOSTESS-C Primary Care Provider Active Team Status: Inactive Member Role Status Dates La Pack , HOST/HOSTESS-C Primary Care Provider Active Start: July 31, 2025 End: July 31, 2025La Pack , HOST/HOSTESS-CAttending ProviderActiveStart: July 31, 2025 End: July 31, 2025 Team Status: Active Member Role Status Dates La aPck , HOST/HOSTESS-C Primary Care Provider Active Start: August 12, 2025 La Pack , HOST/HOSTESS-CAttending ProviderActiveStart: August 12, 2025 Team Status: Inactive Member Role Status Dates La Pack , HOST/HOSTESS-C Primary Care Provider Active Start: August 22, 2025 End: August 22, 2025La Pack , HOST/HOSTESS-CAttending ProviderActiveStart: August 22, 2025 End: August 22, 2025Team MemberRelationshipSpecialtyStart DateEnd Date Shaikh Sánchez MD PCP - GeneralInternal Medicine Shaikh Sánchez MD [address] [place] [address] PCP - [place]11/14/23 Shaikh Sánchez MD [address] [place] [address] PCP - GeneralInternal Medicine01/15/2410 [place] [address] [place] [address] PCP - GeneralFamily Fvizgjok61/29/24 Zamzam Wheelre NP [address] [place] [address] Nurse PractitionerHonorhealth [facility]or[facility] Medical Centernal Medicine01/16/24 Funmilayo Lombardo, CLERK MANAGER [address] [place] [address] [facility] Services Gustavo Romero LPN Licensed Practical NurseFamily Medicine Kirstin Carreon LPN [address] [place] [address] Licensed Practical NurseFamily Medicine07/27/2411 [place] [address] [place] [address] Nurse PractitionerFamily Mgbhlyid91/29/243 Arturo Chanel MA [address] [place] [address] Family Jggcidnr85/11/248 La Pack NP [address] [place] [address] Nurse PractitionerFamily Medicine02/06/25Team MemberRelationshipSpecialtyStart DateEnd Date Shaikh Sánchez MD [address] [place] [address] PCP - [place]11/14/23 Shaikh Sánchez MD [address] [place] [address] PCP - GeneralInternal Medicine01/15/2410 [place] [address] [address] PCP - GeneralFamily Uumkewoh28/29/24 Zamzam Wheeler NP [address] [place] [address] Nurse PractitionerInternal Medicine01/16/24 Grupo Funmilayo, CLERK MANAGER [address] [address] Social WorkerSocial Services Gustavo Romero LPN Licensed Practical NurseFamily Medicine Kirstin Carreon LPN [address] [address] Licensed Practical NurseFamily Medicine07/27/2411 [place] [address] [address] Nurse PractitionerFamily Etmhevyy08/29/243 Arturo Chanel, [place] [address] [place] [address] Family Ibnejvrz64/11/248 La Pack NP [address] [place] [address] Nurse PractitionerFamily Medicine02/06/25 Team Status: Active Member Role/Relationship Status Dates SILVER Norman Primary Care Provider Active Team Status: Inactive Member Role/Relationship Status Dates SILVER Norman Primary Care Provider Active Start: July 31, 2025 End: July 31, 2025La Pack , HOST/HOSTESS-CAttending ProviderActiveStart: July 31, 2025 End: July 31, 2025 Team Status: Active Member Role/Relationship Status Dates La Pack , HOST/HOSTESS-C Primary Care Provider Active Start: August 12, 2025 La Pack , HOST/HOSTESS-CAttending ProviderActiveStart: August 12, 2025 Team Status: Inactive Member Role/Relationship Status Dates La Pack , HOST/HOSTESS-C Primary Care Provider Active Start: August 22, 2025 End: August 22, 2025La Pack , HOST/HOSTESS-CAttending ProviderActiveStart: August 22, 2025 End: August 22, 2025 Team Status: Active Member Role/Relationship Status Dates La Pack , HOST/HOSTESS-C Primary Care Provider Active Start: August 27, 2025 La Pack , HOST/HOSTESS-CAttending ProviderActiveStart: August 27, 2025 Team Status: Inactive Member Role/Relationship Status Dates La Pack , HOST/HOSTESS-C Primary Care Provider Active Start: September 12, 2025 End: September 12, 2025aL Pack , HOST/HOSTESS-CAttending ProviderActiveStart: September 12, 2025 End: September 12, 2025 Reason for Visit (unrecogniz ed section and content) ReasonOnset DateCommentsMed Mlaljx944ReasonOnset DateCommentsMed Refill 4ReasonOnset DateCommentsMed Wgabqb3209/11/2024easonCommentsFollow-up ReasonOnset DateCommentsMed Uotzij034ReasonOnset DateCommentsMed Refill 10/22/2024easonCommentsMed RefillReasonOnset DateCommentsMed Aetchg6107/23/2024 ReasonOnset DateCommentsMed Tnovez324ReasonOnset DateCommentsMed Refill 4ReasonOnset DateCommentsMed Xjpjye0711/27/2024ReasonOnset DateComments Med Vijtpb3112/06/2024ReasonCommentsFollow-upHospital f/uSore ThroatEaracheRight earReasonCommentsSuture / Staple RemovalheadReasonOnset DateCommentsMed Refill 02/25/2025ReasonOnset DateCommentsMed Qayjss5106/05/2025ReasonCommentsDiabetes Goals (unrecognized section and content) Goals may [...] BE BASED ON THE PRIMARY CLINICAL RECORDS. [facility] [employer] provides no warranty or guarantee of the accuracy or completeness of information in this document.
== END 2025-09-17 13:18 | disposition home or self-care (01) ==
PROVIDERS: PCP Nurse Practitioner; Visit Provider Physician Assistant
DX: I87.333 Chronic venous hypertension (idiopathic) with ulcer and inflammation of bilateral lower extremity (principal); L97.811 Non-pressure chronic ulcer of other part of right lower leg limited to breakdown of skin; L97.821 Non-pressure chronic ulcer of other part of left lower leg limited to breakdown of skin
CPT/HCPCS: 29581

== ENCOUNTER 2025-10-15 13:39 | Outpatient (OUT) | payer MEDICARE, MEDICAID, SELFPAY ==
--- OUTSIDE RECORDS SUMMARY | 2025-10-15 13:44 | XMS_ITS | Clinical Summary ---
Author Organization [facility] Healthcare Address [address] [place] [address] Care Team Providers Care Business Analytics Analyst Name Role Phone Shaikh KEV Sánchez Unavailable [phone] Zamzam Wheeler ART TRACER Unavailable [phone] La Pack ART TRACER Unavailable [phone] Ian Rader MD Primary Care Provider [phone] Allergies No known active allergies Medications MedicationSigDispense QuantityRefillsLast FilledStart DateEnd DateStatus LORazepam (Ativan) 0.5 MG tablet Indications:ELADIO (generalized anxiety disorder)Take 1 tablet (0.5 mg) by mouth 3 (three) times a day as needed for anxiety for up to 10 days 30 tablet 5Active Glucose Blood (Blood Glucose Test) strip Indications:Type 2 diabetes mellitus without complication, without long-term current use of insulin ([facility])1 each by In Vitro route Daily 100 strip 506Active albuterol HFA 90 mcg/act inhaler Indications:Chronic obstructive pulmonary disease, unspecified COPD type ([facility]) Inhale 2 puffs every 4 (four) hours if needed for wheezing 18 g 5Active Abrysvo 120 MCG/0.5ML reconstituted solution 5Active Enebkxaxfjg-Ajhpdxafb-Rcisix (Trelegy Ellipta) 200-62.5-25 MCG/ACT aerosol powder Indications:Asthma with COPD (chronic obstructive pulmonary disease) ([facility])Inhale 1 Inhalation Daily 3 each 5Active Meyyvuelcye-Ymgugyqzs-Zrknkl (Trelegy Ellipta) 200-62.5-25 MCG/ACT aerosol powder Indications:Asthma with COPD (chronic obstructive pulmonary disease) ([facility])Inhale 1 Inhalation Daily 3 each 5Active atorvastatin (Lipitor) 40 MG tablet Indications:Hyperlipidemia, unspecifiedTake 1 tablet (40 mg) by mouth at bedtime 100 tablet 5Active metFORMIN (Glucophage) 500 MG tablet Indications:Type 2 diabetes mellitus without complications ([facility])Take 1 tablet (500 mg) by mouth Daily 100 tablet 5Active omeprazole (PriLOSEC) [address] capsule Indications:Gastro-esophageal reflux disease without esophagitisTake 1 capsule (20 mg) by mouth Daily 100 capsule 5Active losartan (Cozaar) 50 MG tablet Indications:Primary hypertensionTake 1 tablet (50 mg) by mouth Daily 100 tablet 5Active albuterol (2.5 MG/3ML) 0.083% nebulizer solution Indications:Chronic obstructive pulmonary disease, unspecified COPD type ([facility]) Take 3 mL (2.5 mg) by nebulization every 6 (six) hours if needed for wheezing 75 mL 5Active sertraline (Zoloft) 100 MG tablet Indications:Depression, unspecified,Generalized anxiety disorderTake 1 tablet (100 mg) by mouth Daily 100 tablet 5Active busPIRone (Buspar) 5 MG tablet Indications:Generalized anxiety disorderTake 1 tablet (5 mg) by mouth in the morning and 1 tablet (5 mg) before bedtime. 180 tablet 5Active furosemide (Lasix) 20 MG tablet Indications:Edema of both lower legsTake 1 tablet (20 mg) by mouth Daily 30 tablet 5Active Active Problems ProblemNoted DateDiagnosed DateEdema of both lower legs06/26/2025 Assessment & Plan (06/26/2025 11:10 AM EDT): Otoniel wrap applied to both legs and cannot tolerate compression stockings Will add lasix Check labs 07/06/25 Limit sodium Qlyerafmnd70/13/2025 Assessment & Plan (06/26/2025 11:11 AM EDT): Secondary to leg swelling, will cover w atb d/t left leg Denies fever or chills Iron hkaqlwjhea13/31/2025bnormal CBC06/13/2025Encounter for subsequent annual wellness visit (AWV) in Medicare peehnzn6504/16/2025OA (osteoarthritis)04/01/2025 Acquired apydxfssljxcdp90/12/2025 Assessment & Plan (06/26/2025 5:02 AM EDT): No current meds Initial test TSH was elevated in 03/08: 4.718, recheck 1 month later 2.663, free T 4 WNL as well Elevated TSH02/19/2025Generalized anxiety xgncttxu57/26/2025 Assessment & Plan (06/26/2025 11:11 AM EDT): Will increase dose of sertraline to 100mg Add buspar Fu in 4 weeks Assessment & Plan (02/06/2025 10:43 AM EDT): Takes ativan prn, and sertraline Cigarette nicotine dependence without ahvtfxmboiil52/12/2025 Assessment & Plan (06/26/2025 5:02 AM EDT): Has not smoked since [facility] Assessment & Plan (02/06/2025 10:33 AM EDT): Has not smoked since [facility] Assessment & Plan (01/23/2025 6:53 AM EDT): The patient has been advised of the risks of continued smoking: stroke, ND, all forms of cancer, lung disease, and . Options for quitting smoking include: cold turkey, hypnosis, acupuncture, nicotine replacement meds(gum, lozenges, and patches), Buproprion, and Varenicline. At this time pt is encouraged to evaluate their goals for wanting to quit smoking, and reach out toprovider when ready to start this process Scalp laceration, saottxh1601/23/2025 Assessment & Plan (01/23/2025 1:10 PM EDT): No s/s infection Neuro exam is normal I do not suspect her fever is related to this Suspect possible resp COPD jktfpnftahcn23/12/2025 Assessment & Plan (01/23/2025 1:09 PM EDT): Will add augmentin, no cxr at this time, can cont albuterol prn and trelegy as directed Fluids, and encourage cough and deep breathing If worsening in sxs go to Er Acute hypoxic respiratory diuxeuh5812/24/2024 Assessment & Plan (02/06/2025 10:25 AM EDT): Wears oxygen at home Inhalers: trelegy, albuterol Assessment & Plan (01/14/2025 9:54 AM EST): SpO2 stable and wean oxygen as tolerated. Vitamin D ufrltawyim73/08/2024 Overview (06/21/2024): Have vitamin D levels redrawn. Assessment & Plan (02/06/2025 6:27 AM EDT): Taking supplement 2,000 international units daily Check labs Dermoid cyst of right ear06/21/2024 Overview (06/21/2024): Referral sent to ENT Right acoustic wdmmcxh7002/23/20242927Gryhwffeno64/11/2024 Overview (02/23/2024): Patient admits to gait instability [...] not a tripping yin if applicable. Recurrent falls02/23/2024 Overview (02/23/2024): Gait instability is likely multifactoral with sensory loss on exam suggesting a polyneuropathy and moderate cervical stenosis superimposed on baseline history of acoustic neuroma. Demyelinating rrkqrlf9002/23/2024rimary pvvsolmawprg17/14/2024 Assessment & Plan (06/26/2025 5:01 AM EDT): [...] Check BMP in a few weeks Other xhrzihnonkckgq45/08/2024 Assessment & Plan (02/06/2025 6:32 AM EDT): [...] Iron deficiency anemia due to chronic blood loss11/21/2023 Assessment & Plan (02/06/2025 6:27 AM EDT): [...] GI side effects. Type 2 diabetes mellitus without complication, without long-term current use of rscqlmo9411/21/2023 Assessment & Plan (06/26/2025 5:01 AM EDT): [...] Metformin. Recurrent major depressive disorder, in full mvwudgwms88/08/2024 Assessment & Plan (02/06/2025 10:43 AM EDT): Takes sertraline daily Assessment & Plan (01/26/2024 3:42 PM EDT): Well controlled on Zoloft. No SI/HI. Assessment & Plan (11/21/2023 3:42 PM EST): Well controlled on Zoloft. No SI/HI. Screening mammogram, encounter for11/21/2023 Assessment & Plan (11/21/2023 3:44 PM EST): Ordered mammogram for the patient. Sensorineural hearing loss (SNHL) of right ear1Positive fecal occult blood test11/29/2019COPD (chronic obstructive pulmonary disease)12/27/2018 Assessment & Plan (06/26/2025 5:01 AM EDT): [...] PLAN FOR MODERATE PERSISTENT ASTHMA WITHOUT COMPLICATION ([facility]) WRITTEN ON 11/21/2023 3:40 PM [...] concerns related to new medications. Resolved Problems ProblemNoted DateDiagnosed DateResolved DateInfluenza A0503/ Assessment & Plan (01/14/2025 9:54 AM EST): Recent infection but improved and monitor. Acoustic jiajvgq10/ Overview (02/23/2024): 68-year-old female who is being seen in outpatient neurological consultation request of Dr Sánchez for acoustic neuroma on the right. Medical history includes bursitis, GERD, hypertension, hyperlipidemia, depressions, iron deficiency anemia, vitamin D deficiency, and diabetes mellitus type 2. Patient presented to [facility] care for monitoring of acoustic neuroma initially diagnosed in 2014. At that time she had the acoustic neuroma surgically removed. She was told there was reoccurrence in 2017.Her last imaging was in April 2022 which showed stable appearance of the cerebellopontine mass. Repeat MRI,as below, without evidence of mass or abnormal enhanceent. Current vlesms37/10/2025 Assessment & Plan (11/21/2023 3:44 PM EST): Down to 2-3 cigarettes a day. Encouraged the patient. She will attempt to quit completely in upcoming days. Encounters DateTypeDepartmentCare AwcvCkljvltgimy66/30/2025Orders Only [facility] [address] [place] [address] Ian Rader MD from Last 3 Months Immunizations ImmunizationAdministration DatesNext DueInfluenza, High-dose Seasonal, Quadrivalent, Preservative Free3Pneumococcal Conjugate PCV SARS-COV-2 (COVID-19) vaccine, mRNA, spike protein, LNP, bivalent, preservative free, 30 mcg/0.3 mLdose, carolyn-sucrose seketcjuftn47/13/2025 Family History Medical HistoryRelationNameCommentsCoronary artery diseaseFatherDiabetesFather HypertensionFatherSepsisFatherUterine cancerMotherRelationNameStatusComments FatherDeceasedMotherDeceased Social History Tobacco UseTypesPacks/DayYears UsedDateSmoking Tobacco: Every DayCigarettes Passive Smoke Exposure: CurrentSmokeless Tobacco: Never Tobacco Cessation:Ready to Q uit: Not Asked; Counseling Given: Not Answered Alcohol UseStandard Drinks/WeekCommentsNever0 (1 standard drink = 0.6 oz pure alcohol)Caffeine: 2-3 cups per dayPHQ-2AnswerDate RecordedPatient Health Questionnaire-2 Mmkrx561CommentsNoSex and Gender Information ValueDate RecordedSex Assigned at BirthNot on fileLegal FopBrzbnf83/15/2023 6:34 PM EDTGender IdentityNot on fileSexual OrientationNot on file Last Filed Vital Signs Vital SignReadingTime TakenCommentsBlood Sjoqoqja411/8408 10:26 AM EDT Upuie132506/26/2025 10:26 AM HAKPlkgaheyyzz24.9 ??C (98.4 ??F)06/26/2025 10:26 AM EDTRespiratory Dicy835806/26/2025 10:26 AM EDTOxygen Fcylkexujt24%06/26/2025 10:26 AM EDTInhaled Oxygen Concentration--Byzndb52.1 kg (141 lb 6.4 oz)02/06/2025 10:08 AM STDZfupkg408 cm (5' 3 )01/23/2025 11:44 AM EDTBody Mass Index25.05 01/23/2025 11:44 AM EDT Plan of Treatment Health MaintenanceDue DateLast DoneCommentsCT Bhrigeijkmoi1953FIT 1955FOBT1955 2548Wndwasygifigv1953OVID-19 Vaccine ( season)/11/2020, 01/16/2021Influenza Vaccine (#1)2025 08/14/2023iabetes: Hemoglobin A1C, 09/20/2024, 07/15/2023 FIT-DNA3Diabetes: Urine Protein Hetkhklsu64/07/2026 02/18/2025, 01/12/20243315Nbebvujhc69, 01/16/2024Medicare Annual Wellness (AWV) (Patient Refused), 4Diabetes: Retinopathy Yfpjbfiac47, 01/08/2025, 03/14/2023olonoscopy 5Colorectal Cancer Xoygzaojr94/26/2035Pneumococcal Vaccine: 65+ BpzmyBahqfpuvb39/17/2025 Procedures Procedure NamePriorityDate/TimeAssociated DiagnosisCommentsHM COLONOSCOPYRoutine 06/08/2025 9:33 AM EDTMM TOMOSYNTHESIS SCREENING BI02/18/2025 3:53 PM EDT DIABETIC RETINOPATHY SCREENING - OU - BOTH BONEDtivrct79/19/2025 3:23 PM EDTPOCT GLYCOSYLATED HEMOGLOBIN (HGB A1C)Ossfvoa0209/20/2024 10:56 AM EST Type 2 diabetes mellitus without complication, without long-term current use of insulin (HCC) from Last 3 Months or Most Recently Relevant to Health Maintenance Results * MM TOMOSYNTHESIS SCREENING BI (02/18/2025 3:53 PM EDT)Anatomical Region LateralityModalityOtherSpecimen (Source)Anatomical Location / Laterality Collection Method / VolumeCollection TimeReceived Time02/18/2025 3:53 PM EDT Narrative 02/18/2025 3:54 PM EDT [facility] ?[address] ? [place] [address] ? Mammography Report ? Signed ? Patient: ZULEYKA CHAUDHRY ?MR#: [id number] ?? : 1955 ?Acct:[id number] ?? Age/Sex: 69 / F ?ADM Date: 02/18/25 ?? Loc: MAMMO ? Attending Dr: La Pack ART TRACER ? Ordering Physician: La Pack ART TRACER ?Results: ? Date of Service: 02/18/25 ?Follow Up: ? Procedure(s): MM tomosynthesis screening BI ?? Accession Number(s): [id number] ? cc: La Pack NP ? Patient Name: ? ZULEYKA CHAUDHRY ? MR#: [id number] ? : 1955 ? Exam Date: 02/18/2025 ?? Ordering Doctor: RISHABH Pack CNP ? RADIOLOGY REPORT ? PROCEDURE: ? MM TOMOSYNTHESIS SCREENING BI ? COMPARISON: ? MM TOMOSYNTHESIS SCREENING BI, 01/16/2024. ??MG MAMM SCREEN 3D ?? [place] CAD, 08/11/2021. ??MG MAMM SCREEN [place] W CAD, 07/04/2020. ??MG MAMM [place] SCRN W ?? CAD DIG, 05/02/2015. ? INDICATIONS: ? Screening for malignant neoplasm ? Calculator Name ? NCI Breast Cancer Risk Assessment Tool ?? 5 Year Breast Cancer Risk ? 1.10% ?? Lifetime Breast Cancer Risk ? 3.20% ?? Personal Breast Cancer ?No ?? Personal Ovarian Cancer ? No ?? Treatments ? None ?? Family Cancers ? Mother with uterine cancer at age ??55. ? LOCATION: ? [facility] ? BREAST COMPOSITION: ? The breasts are almost entirely fatty. ? FINDINGS: ? DIAGNOSTIC CATEGORY 1--NEGATIVE. ? RIGHT BREAST: ??No significant suspicious finding. ? LEFT BREAST: ??No significant suspicious finding. ? RECOMMENDATIONS: ? ROUTINE MAMMOGRAM AND CLINICAL EVALUATION IN 12 MONTHS. ? PLEASE NOTE: ??A NORMAL MAMMOGRAM DOES NOT EXCLUDE THE POSSIBILITY OF BREAST ?? CANCER. ??A CLINICALLY SUSPICIOUS PALPABLE LUMP SHOULD BE BIOPSIED. ? Dictated by: Ryan Ugalde DO on 02/18/2025 at 15:52 ? Approved by: Ryan Ugalde DO on 02/18/2025 at 15:53 ? Dictated By: ?Ryan Ugalde M.D. ? Signed By: ?02/18/25 1554 ? DD/ ? TD/TT: ? Dining Room Captain: Procedure Note Radiology, Radiologist, MD - 02/18/2025 [place] [address] Mammography Report Signed Patient: ZULEYKA CHAUDHRY [facility]#: [id number] : 3Acct:[id number] Age/Sex: 69 / FADM Date: 02/18/25 Loc: MAMMO Attending Dr: La Pack ART TRACER Ordering Physician: La Packults: Date of Service: 02/18/25Follow Up: Procedure(s): MM tomosynthesis screening BI Accession Number(s): [id number] cc: La Pack NP Patient Name: ZULEYKA CHAUDHRY MR#: [id number] : 1955 Exam Date: 02/18/2025 Ordering Doctor: RISHABH Pack CNP RADIOLOGY REPORT PROCEDURE: MM TOMOSYNTHESIS SCREENING BI COMPARISON: MM TOMOSYNTHESIS SCREENING BI, 01/16/2024. MG MAMM SNVWXL0V [place] CAD, 08/11/2021. MG MAMM SCREEN [place] W CAD, 07/04/2020. MG MAMM BILSCRN W CAD DIG, 05/02/2015. INDICATIONS: Screening for malignant neoplasm Calculator Name NCI Breast Cancer Risk Assessment Tool 5 Year Breast Cancer Risk 1.10% Lifetime Breast Cancer Risk 3.20% Personal Breast Cancer No Personal Ovarian Cancer No Treatments None Family Cancers Mother with uterine cancer at age 55. LOCATION: [facility] BREAST COMPOSITION: The breasts are [...] M.D. Signed By:02/18/25 1554 DD/ 1553 TD/TT: Dining Room Captain: Authorizing ProviderResult TypeResult StatusLa Pack NPCLINISYNC IMAGING Final Result * Diabetic Retinopathy Screening - OU - Both Eyes (01/30/2025 3:23 PM EDT) Anatomical RegionLateralityModalityHeadOther Narrative Authorizing ProviderResult TypeResult StatusaIn Rader MDOPH PHOTOGRAPHY Final Result * POCT glycosylated hemoglobin (Hb A1C) docked device (09/20/2024 10:56 AM EST) ComponentValueRef RangeTest MethodAnalysis TimePerformed AtPathologist SignatureHemoglobin A1C6.1Specimen (Source)Anatomical Location / Laterality Collection Method / VolumeCollection TimeReceived TimeBloodVenous blood specimen / Oqoxpig9309/20/2024 10:56 AM EST Narrative Authorizing ProviderResult TypeResult StatusBrittfrancisco Cardoso NPPOINT OF CARE TEST ENTER/EDIT ORDERABLESFinal Result from Last 3 Months or Most Recently Relevant to Health Maintenance Insurance Care Teams Team MemberRelationshipSpecialtyStart DateEnd Date Shaikh Sánchez MD [address] [place] [phone] PCP - [place] AR11/14/23 Ian Rader MD [address] [place] [phone] PCP - GeneralFamily Kbynoyjk81/30/25 Zamzam Wheeler NP Nurse PractitionerInternal Medicine01/16/24 La Pack NP [address] [place] [phone] Nurse PractitionerFamily Medicine02/06/25
--- OUTSIDE RECORDS SUMMARY | 2025-10-15 13:44 | XMS_ITS | Clinical Summary ---
Author Organization [facility] Address [address] [place] [address] Phone Care Team Providers Care Sap Hana Architect Name Role Phone Unavailable Primary Care Provider Unavailabl e Social History Tobacco UseTypesPacks/DayYears UsedDateSmoking Tobacco: Never Assessed CommentsUnknownSex and Gender InformationValueDate RecordedSex Assigned at Not on fileLegal NueYhghcg87/26/2022 10:36 AM ESTGender IdentityNot on file Sexual OrientationNot on file Plan of Treatment Not on file
--- OUTSIDE RECORDS SUMMARY | 2025-10-15 13:46 | XMS_ITS | CCD ---
Author Organization [facility] Care Team Providers Care Sequins Spooler Name Role Phone CHALO, DR GIANNA PACHECO [...] Admitting Unavailable Shaikh Sánchez MD Unavailable [place] MATHEMATICS LECTURER, Zamzam C Unavailable [phone] Shaikh Sánchez MD Primary Care Provider Kirstin Carreon LPN Unavailable Unavailable Ian Soares MD Primary Care Provider Daniel Cardoso NP Unavailable Gustavo Romero LPN Unavailable Unavailable [place] MATHEMATICS LECTURER, Zamzam C Unavailable Arturo Chanel MA Unavailable Unavailable Walker MATHEMATICS LECTURER-CDaniel Primary Care Provid er Ramos MD, Mohamad Admit Provider Kayla ANGULO, Daniel Attending Provider Sara ANGULO, Basekassandra Other Provider Hernandez ANGULO, Suzette Other Provider Ryan Arshad MD Other Provider Turjimenez DRAWBENCH OPERATOR, Ilana Other Provider Hubert Mcguire DO Other Provider [phone] Beni ANGULO, Dave Hidalgo Other Provider PROVIDER, UNKNOWN Attending Unavailable PROVIDER, UNKNOWN Admitting Unavailable Chalo ANGULO, Gianna Mir Primary Care Provider Unava ilable Liam MATHEMATICS LECTURER, Zamzam C Unavailable Walker MATHEMATICS LECTURER, Daniel Unavailable [phone] Ramone MATHEMATICS LECTURER, La Unavailable Arturo Chanel MA Unavailable IAN SOARES Attending Unavailable AICHHOLZ, LA Attending Unavailable AICHHOLZ, LA Attending Unavailable AICHFARIBA, LA Attending Unavailable DANIEL CARDOSO Attending Unavailrocky e Daniel Cardoso Primary Care Unavaila ble Hernandez, Suzette Consulting Unavailable Rmaos, Mohamad Admitting Unavailable Daniel Garza Attending Unavailable Jeancarlos, Ryan Consulting Unavailable Kelly, Ilana Consulting Unavailable Hubert Mcguire Jr Consulting Unavailabl e Dave Bazan Consulting Unavaila ble Ruiz, Basem Consulting Unavailable Aichholz MATHEMATICS LECTURER-C, La J Primary Care Provider Ramone MATHEMATICS LECTURER-C, La J Attending Provider Gonzalo ANGULO, Parada Primary Care Provider Shaikh Sánchez MD Unavailable Liam GARZA, Zamzam C Unavailable Gonzalo ANGULO, Primary Care Provider Grupo ARTICULATION OFFICER, Funmilayo Unavailable Heather BKAERN, Ardana Unavailable Unavailable Lauri RUIZ, Kirstin Unavailable Prasanth ANGULO, Ian Primary Care Provider [phone] Walker MATHEMATICS LECTURER, Daniel Unavailable Darío MORALES, Arturo Unavailable Ramone MATHEMATICS LECTURER, La Unavailable Medications Current Medications MedicationDrug Class(es)DatesSig (Normalized)Sig (Original)Abrysvo 120 MCG/0.5ML reconstituted solution (8 sources)Start: 86-25-1719Cdxdwxm 120 MCG/0.5ML reconstituted solution 12/21/2024 Activeacetaminophen 500 mg oral capsule (4 sources)Start: 73-52-8277ffud 1 capsule by mouth every six hours as needed albuterol 0.83 mg/ml inhalation solution (20 sources)beta2-Adrenergic AgonistStart: 07-22-2025 End: 26-04-5712eqkm 1 puff(s) by inhalation four times daily as needed for wheezingStart: 07-18-2025 End: 13-35-7364wsfk 2.5 mg by inhalation every six hoursAlbuterol Sulfate 2.5 mg /3 mL (0.083 %) solution for nebulization Discontinued 2.5 MG INHALATION Every 6 hours 1080 90 0 July 18, 2025 11:20am August 01, 2025 8:50pm Chronic obstructive pulmonary disease Chronic obstructive pulmonary disease, unspecified Start: 07-18-2025 End: 61-21-2606odir 1 puff(s) by inhalation every four hoursAlbuterol Sulfate 90 mcg/actuation HFA aerosol inhaler Discontinued 2 PUFF INHALATION Every 4 hours July 18, 2025 12:00am August 01, 2025 8:49pmStart: 02-12-2025 End: 06-38-8652lppotydxe (2.5 MG/3ML) 0.083% nebulizer solution Indications: Chronic obstructive pulmonary disease, unspecified COPD type (HCC) Take 3 mL (2.5 mg) by nebulization every 6 (six) hours if needed for wheezing 75 mL 1 06/09/2025 ActiveStart: 12-10-2024 End: 33-72-2381Pblnuuhcv Sulfate 90 mcg/actuation HFA aerosol inhaler Discontinued INHALATION December 10, 2024 1:00am July 22, 2025 7:14pm Start: 06-21-2024 End: 94-49-7449fsmm 2 puff(s) by inhalation every four hours [...] oral tablet (11 sources)Penicillin-class AntibacterialStart: 01-23-2025 End: 28-94-6871behj 1 tablet by mouth in the morningamoxicillin-clavulanate (Augmentin) 875-125 MG tablet Indications: COPD exacerbation (CMS/HCC) Take1 tablet (875 mg) by mouth in the morning and 1 tablet (875 mg) before bedtime. Do all this for 10 days. Take with food. 20 tablet 01/23/2025 02/06/2025 Discontinued (Therapy completed)Start: 12-14-2024 End: 05-59-9072iowk 1 tablet by mouth twice dailyAmoxicillin-Pot Clavulanate (Augmentin) 500-125 mg tablet Discontinued 1 TAB PO Twice daily 6 3 0 December 14, 2024 1:00am January 04, 2025 10:14amStart: 09-20-2024 End: 72-45-9592vtqd 1 tablet by mouth in the morningamoxicillin-clavulanate (Augmentin) 875-125 MG tablet Indications: Non-recurrent acute serous otitis media of left ear Take 1 tablet (875 mg) by mouth in the morning and 1 tablet (875 mg) before bedtime. Do all this for 10 days. 20 tablet 09/20/2024 09/30/2024 Activebumetanide 1 mg oral tablet (2 sources)Loop DiureticStart: 96-89-4087afxp 1 tablet by mouth once daily busPIRone hydrochloride 7.5 mg oral tablet (10 sources)Start: 07-31-2025 End: 23-10-0953limj 1 tablet by mouth twice dailyStart: 06-26-2025 End: 63-08-2688mfob 1 tablet by mouth twice dailyBuspirone 5 [...] oral capsule (2 sources)Cephalosporin AntibacterialStart: 06-26-2025 End: 26-33-6338tefy 1 capsule by mouth in the morningcephalexin (Keflex) 500 MG capsule Indications: Cellulitis of left lower extremity Take 1 capsule (500 mg) by mouth in the morning and 1 capsule (500 mg) before bedtime. Do all this for 7 days. 14 capsule 06/26/2025 07/03/2025 Activecholecalciferol 0.05 mg oral tablet (20 sources)Vitamin DStart: 06-21-2024 End: 50-04-5009hlhr 1 tablet by mouth once dailycholecalciferol (Vitamin [...] mg oral tablet (1 source)Start: 04-30-2024 End: 62-77-4992hsuj 1 tablet by mouth once dailyferrous gluconate (Fergon) 324 (38 Fe) MG tablet Indications: Iron deficiency TAKE 1 TABLET BY MOUTH DAILY 100 tablet 04/30/2024 07/07/2024 Discontinued (Therapy completed)ferrous sulfate 325 mg delayed release oral tablet (20 sources)Start: 07-07-2024 End: 94-82-7584ianb 1 tablet by mouth in the morningferrous [...] Administer 1 spray into each nostril daily. YdosvnFtqbmfwscqd-Ypsrengoh-Vvlvct (Trelegy Ellipta) 200-62.5-25 MCG/ACT aerosol powder (20 sources)Start: 05-06-2025 End: 89-99-3366Acvpwpegsxt-Umeclidin-Vilant (Trelegy Ellipta) 200-62.5-25 MCG/ACT aerosol powder Indications: Asthma with COPD (chronic obstructive pulmonary disease) ([facility]) Inhale 1 Inhalation Daily 3 each 1 05/06/2025 08/04/2025 ActiveStart: 02-25-2025 End: 28-58-8535Vybhxdjtxnv-Umeclidin-Vilant (Trelegy Ellipta) 200-62.5-25 MCG/ACT aerosol powder Indications: Asthma with COPD (chronic obstructive pulmonary disease) ([facility]) Inhale 1 Inhalation Daily 3 each 1 02/25/2025 05/06/2025 Discontinued (Reorder)Start: 02-25-2025 End: 46-36-5068Aijpajhiyas-Umeclidin-Vilant (Trelegy Ellipta) 200-62.5-25 MCG/ACT aerosol powder Indications: Asthma with COPD (chronic obstructive pulmonary disease) ([facility]) Inhale 1 Inhalation Daily 3 each 1 02/25/2025 05/26/2025 ActiveStart: 08-27-2024 End: 05-26-6556Trgcmutzekj-Umeclidin-Vilant (Trelegy Ellipta) 200-62.5-25 MCG/ACT aerosol powder Indications: Asthma with COPD (chronic obstructive pulmonary disease) ([facility]) Inhale 1 Inhalation Daily 3 each 1 08/27/2024 02/25/2025 Discontinued (Reorder)Start: 47-69-6577Vrvbgjeltoi-Umeclidin-Vilant (Trelegy Ellipta) 200-62.5-25 MCG/ACT aerosol powder Indications: Asthma with COPD (chronic obstructive pulmonary disease) ([facility]) Inhale 1 Inhalation Daily 3 each 1 08/27/2024 ActiveStart: 08-27-2024 End: 93-01-3088Xpbmbaywngi-Umeclidin-Vilant (Trelegy Ellipta) 200-62.5-25 MCG/ACT aerosol powder Indications: Asthma with COPD (chronic obstructive pulmonary disease) ([facility]) Inhale 1 Inhalation Daily 3 each 1 08/27/2024 11/25/2024 ActiveStart: 06-11-2024 End: 20-01-6827Llmxgkgihsx-Umeclidin-Vilant (Trelegy Ellipta) 200-62.5-25 MCG/ACT aerosol powder Indications: Asthma with COPD (chronic obstructive pulmonary disease) ([facility]) Inhale 1 Inhalation Daily 3 each 1 06/11/2024 08/27/2024 Discontinued (Reorder)Start: 06-11-2024 End: 43-13-1021Rsszjydwlau-Umeclidin-Vilant (Trelegy Ellipta) 200-62.5-25 MCG/ACT aerosol powder Indications: Asthma with COPD (chronic obstructive pulmonary disease) ([facility]) Inhale 1 Inhalation Daily 3 each 1 06/11/2024 09/09/2024 HkjdjaZbhabrpqlry-Xmxqijfaf-Qemypmte (12 sources)Start: 48-01-1097Joeif: 22-36-1320Rlrifqumbvb-Umeclidin-Vilanter (Trelegy Ellipta) 200-62.5-25 mcg blister with device Active 1 INH INHALATION Daily 180 July 18, 2025 11:18am Complies with drug therapyStart: 01-04-2025 End: 10-14-6032Lgzlftqsoik-Umeclidin-Vilanter (Trelegy Ellipta) 200-62.5-25 mcg blister with device Discontinued INHALATION Twice daily January 04, 2025 10:12am July 18, 2025 11:20amStart: 01-04-2025 Yribeblxwam-Ftfwnghia-Setahkuu (Trelegy Ellipta) 200-62.5-25 mcg blister with device Active INHALATION Twice daily January 04, 2025 9:12amStart: 12-10-2024 End: 85-79-6546Yelduatrkvm-Umeclidin-Vilanter (Trelegy Ellipta) 200-62.5-25 mcg blister with device Discontinued INHALATION December 10, 2024 1:00am January 04, 2025 10:14amStart: 12-10-2024 End: 59-36-6285Teiuhyaqpqs-Umeclidin-Vilanter (Trelegy Ellipta) 200-62.5-25 mcg blister with device Discontinued INHALATION December 10, 2024 12:00am January 04, 2025 9:14amStart: 37-37-7433Eogvnctnfks-Umeclidin-Vilanter (Trelegy Ellipta) 200-62.5-25 mcg blister with device Active INHALATION December 10, 2024 12:00amhydroCHLOROthiazide 12.5 mg / losartan potassium 50 mg oral tablet (13 sources)Thiazide Diuretic, Angiotensin 2 Receptor BlockerStart: 01-26-2024 End: 57-42-9626sryl 1 tablet by mouth once dailylosartan-hydroCHLOROthiazide (Hyzaar) [...] tablet (20 sources)Nonsteroidal Anti-inflammatory DrugStart: 12-10-2024 End: 70-08-2363ruwx 1 tablet by mouth once dailyStart: 02-28-2019 End: 29-23-5288bqvx 1 tablet by mouth once dailymeloxicam (MOBIC) 7.5 mg tablet Take 7.5 mg by mouth daily. 5 02/28/2019 Activemultivitamin capsule (4 sources)take 1 capsule by mouth once dailymultivitamin capsule Take 1 capsule by mouth daily. Activeondansetron 4 mg oral tablet (4 sources)Serotonin-3 Receptor AntagonistStart: 14-38-8422wwtb 1 tablet by mouth every six hours as neededPEG 3350 (Glycolax, Miralax) 4 gram packet (2 sources)PEG 3350 (Glycolax, Miralax) 4 gram packet 17 g in the morning. Activepolyethylene glycol 3350 00830 mg powder for oral solution (4 sources)Osmotic Laxativepolyethylene glycol (GLYCOLAX) 17 gram packet Take 17 g by mouth daily. Activesertraline 50 mg oral tablet (20 sources)Serotonin Reuptake InhibitorStart: 60-64-4155vzeu 2 tablets by mouth once dailyStart: 06-26-2025 End: 10-47-3615uktx 1 tablet by mouth once dailysertraline (Zoloft) 100 MG tablet Indications: Depression, unspecified , Generalized anxiety disorder Take 1 tablet (100 mg) by mouth Daily 100 tablet 06/26/2025 10/04/2025 ActiveStart: 04-30-2024 End: 98-82-2275nzrg 1 tablet by mouth once dailySertraline 50 mg tablet Discontinued 50 MG PO Daily January 04, 2025 10:14am July 18, 2025 10:56amspironolactone 25 mg oral tablet (4 sources)Aldosterone Antagonisttake 1 tablet by mouth once dailyspironolactone (ALDACTONE) 25 mg tablet Take 1 tablet by mouth daily. Active Completed/Discontinued Medications MedicationDrug Class(es)DatesSig (Normalized)Sig (Original)atorvastatin 40 mg oral tablet (20 sources)HMG-CoA Reductase InhibitorStart: 01-09-2018 End: 96-87-6687Xnvzvghicaeu 40 mg tablet Discontinued MG December 10, 2024 1:00am January 04, 2025 10:14amfurosemide 40 mg oral tablet (9 sources)Loop DiureticStart: 07-31-2025 End: 29-59-1290bayo 1 tablet by mouth once dailyFurosemide 40 mg tablet Discontinued 40 MG PO Daily 30 July 31, 2025 12:00am August 22, 2025 9:44am Edema of both lower extremities Localized edemaStart: 06-26-2025 End: 00-99-5940txtb 1 tablet by mouth once dailyFurosemide 20 mg tablet Discontinued 20 MG PO Daily July 18, 2025 12:00am July 31, 2025 11:35amLORazepam 0.5 mg oral tablet (20 sources)BenzodiazepineStart: 07-28-2025 End: 89-83-0842pkxu 1 tablet by mouth once daily at bedtime as neededLorazepam (Ativan) 0.5 mg tablet Discontinued 0.5 MG PO Daily at bedtime as needed July 28, 2025 12:00am August 22, 2025 9:27amStart: 01-04-2025 End: 29-10-9441opkr 1 tablet by mouth three times daily as neededLorazepam 0.5 mg tablet Discontinued 0.5 MG PO Three times daily as needed January 04, 2025 1:00am July 28, 2025 8:43pm End: 22-03-8437jssy 1 tablet by mouth every six hours as needed for anxiety LORazepam (Ativan) 0.5 MG tablet Take 0.5 mg by mouth every 6 (six) hours if needed for anxiety 02/06/2025 Discontinued (Therapy completed)losartan potassium 50 mg oral tablet (20 sources)Angiotensin 2 Receptor BlockerStart: 09-20-2024 End: 61-73-6956hcug 1 tablet by mouth once dailyLosartan 50 mg tablet Discontinued 50 MG PO Daily January 04, 2025 10:12am August 06, 2025 2 :00pmmetFORMIN hydrochloride 500 mg oral tablet (20 sources)BiguanideStart: 04-30-2024 End: 37-60-4941Ywlrcvwmp 500 mg tablet Discontinued MG December 10, 2024 1:00am January 04, 2025 10:14amtake 1 tablet by mouth twice daily at mealtime metFORMIN (GLUCOPHAGE) 500 mg tablet Take 500 mg by mouth 2 (two) times a day with meals. Activeomeprazole 20 mg delayed release oral capsule (20 sources)Proton Pump InhibitorStart: 01-30-2024 End: 86-70-2332Vtudcurdqs 20 mg capsule,delayed release(DR/EC) Discontinued MG December 10, 2024 1:00am January 04, 2025 10:14amoseltamivir 30 mg oral capsule (5 sources)Neuraminidase InhibitorStart: 12-14-2024 End: 65-31-4756ixti 1 capsule by mouth twice dailyOseltamivir 30 mg Capsule Discontinued 30 MG PO Twice daily 4 2 0 December 14, 2024 1:00am January 04, 2025 10:14ampredniSONE 20 mg oral tablet (5 sources)Start: 12-14-2024 End: 76-98-6468fhlv 2 tablets by mouth once dailyPrednisone 20 mg Tablet Discontinued 40 MG PO Daily 4 2 0 December 14, 2024 1:00am January 04, 2025 10:14amRsv Vac, Pref A And Pref B(Pf) (3 sources)Start: 07-18-2025 End: 61-96-1851Tyt Vac, Pref A And Pref B(Pf) (Abrysvo (Pf)) 120 mcg/0.5 mL recon soln Discontinued ML IM July 18, 2025 12:00am July 28, 2025 8:42pm Problems Active Problems Problem ClassificationProblemDateDocumented DateEpisodic/Chronic Administrative/social admission (8 sources)Other reduced mobility; Translations: [Impaired mobility and activities of daily living]Onset: 843237-19-5696BtdwnfniVxxrupi disorders (20 sources)Anxiety; Translations: [Anxiety disorder, unspecified]Onset: 353380-46-5750RamkvesCvwpbj; peripheral; and visceral artery aneurysms (4 sources)Aneurysm of other specified arteries; Translations: [ANEURYSM OTHER SPECIFIED ARTERIES]Onset: 35-80-1959KretcyxKetauzxydj pneumonitis; food/vomitus (14 sources)Aspiration pneumonia; Translations: [Pneumonitis due to inhalation of food and vomit]Onset: 043018-82-7234UqplfgqiJtdmss (20 sources)Asthma-chronic obstructive pulmonary disease overlap syndrome; Translations: [Asthma with COPD (chronic obstructive pulmonary disease) ([facility])]Onset: 176000-34-6986FhfzujfRcuytaz obstructive pulmonary disease and bronchiectasis (20 sources)Chronic obstructive pulmonary disease, unspecified; Translations: [Acute exacerbation of chronic obstructive airways disease]Onset: 12-27-2018 47-14-4979HgoswgtCmlwpwiyul and other anemia (20 sources)Iron 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; Translations: [Iron deficiency anemia secondary to blood loss (chronic)]Onset: ChronicDeficiency and other anemia (1 source)Anemia, unspecified; Translations: [ANEMIA UNSPECIFIED]Onset: 32-13-4326KabsnfkgDjgzseqp mellitus with complications (2 sources)Polyneuropathy due to type 2 diabetes mellitus; Translations: [Type 2 diabetes mellitus with diabetic polyneuropathy]26-57-9544WvzracpJnllhweo mellitus without complication (20 sources)Type 2 diabetes mellitus without complications; Translations: [Type 2 diabetes mellitus without complication]Onset: 99-88-8307MiafvmaKotusqsva of lipid metabolism (20 sources)Hyperlipidemia; Translations: [Other hyperlipidemia]Onset: 258707-70-2339EybdrsnSkmkqcxqtq disorders (2 sources)Gastroesophageal reflux disease without esophagitis; Translations: [Gastro-esophageal reflux disease without esophagitis]38-49-5056ItoncieZkgodqqxn hypertension (20 sources)Essential hypertension; Translations: [Essential (primary) hypertension]Onset: 422541-06-3302OczkgtdUmvv disorders (20 sources)Recurrent major depression in full remission; Translations: [Major depressive disorder, recurrent, in full remission]Onset: ChronicMood disorders (20 sources)Mood disorders; Translations: [Depression, unspecified]Onset: 020124-34-3507Jfqknxwsekt deficiencies (20 sources)Vitamin D deficiency; Translations: [Vitamin D deficiency, unspecified]Onset: 554200-35-4779JejzhnrPmej wounds of extremities (4 sources)Open wound of lower limb; Translations: [Unspecified open wound, right lower leg, initial encounter]64-19-6919MnofmbneVydlikkwjqttbe (15 sources)Osteoarthritis; Translations: [Unspecified osteoarthritis, unspecified site]Onset: 145360-35-0131SycothbZomoo and unspecified benign neoplasm (4 sources)Benign neoplasm of cranial nerves; Translations: [BENIGN NEOPLASM OF CRANIAL NERVES]Onset: 61-83-2920RdmweyfKswga and unspecified benign neoplasm (20 sources)Acoustic neuroma of right vestibular nerve; Translations: [Benign neoplasm of cranial nerves]Onset: 943365-51-9759KnfricrDtslg and unspecified benign neoplasm (2 sources)Benign neoplasm of cranial nerve; Translations: [Benign neoplasm of cranial nerves]83-83-7812ClfljomGmjpe and unspecified benign neoplasm (20 sources)Other benign neoplasm of skin of right ear and external auricular canal; Translations: [Benign neoplasm of ear and external auditory canal]Onset: 036847-02-6029EeuwcizrEmdav circulatory disease (5 sources)Low blood pressure; Translations: [Hypotension, unspecified] 28-42-5287WzejxdjmSqagi connective tissue disease (20 sources)Recurrent falls ; Translations: [Repeated falls]Onset: 02-23-2024 21-70-8167IvlygodeNxkul connective tissue disease (2 sources)Other bursitis of elbow, left elbow; Translations: [Other enthesopathy of elbow region]86-82-7156PqpqwljyVhhqi connective tissue disease (1 source)Bursitis of elbow; Translations: [Other bursitis of elbow, left elbow] 04-60-4784IdhaixgpGbanq ear and sense organ disorders (20 sources)Sensorineural hearing loss in right ear; Translations: [Unspecified sensorineural hearing loss]Onset: 813317-50-1549TvafwmxIdfsi gastrointestinal disorders (20 sources)Occult blood in stools; Translations: [Other fecal abnormalities] Onset: 582941-33-7660QqzcqcqqOyned nervous system disorders (20 sources)Spinal cord disease; Translations: [Disease of spinal cord, unspecified]Onset: 550471-43-1535RiencyhSswkd nervous system disorders (20 sources)Disorder of nervous system; Translations: [Demyelinating disease of central nervous system, unspecified]Onset: 501618-81-2272HpxtgqgTmyco nervous system disorders (1 source)Ataxia, unspecified; Translations: [ATAXIA UNSPECIFIED]Onset: 81-67-8671NahrxwfbVafsi nervous system disorders (6 sources)Finding related to ability to move; Translations: [Other abnormalities of gait and mobility]Onset: 154849-38-4752VvjagfinNavsn nutritional; endocrine; and metabolic disorders (1 source)Abnormal weight loss; Translations: [ABNORMAL WEIGHT LOSS]Onset: 25-97-9545QvtaxrizLuqex screening for suspected conditions (not mental disorders or infectious disease) (20 sources)Patient encounter status; Translations: [Encounter for screening mammogram for malignant neoplasm of breast]Onset: 354077-84-6479Sexjjhgx Otitis media and related conditions (2 sources)Acute non-suppurative otitis media - serous; Translations: [Acute serous otitis media, left ear]89-58-0203HalzhobvGnetipjh codes; unclassified (5 sources)Tobacco user; Translations: [Tobacco use]36-17-1993BtdxabqgHdvetlpi codes; unclassified (7 sources)Bilateral lower leg edema; Translations: [Localized edema]Onset: 742119-16-1151DlktknznGgjmohse codes; unclassified (9 sources)Bilateral lower limb edema; Translations: [Localized edema]07-18-2025 EpisodicRespiratory failure; insufficiency; arrest (adult) (20 sources)Acute respiratory failure; Translations: [Acute respiratory failure with hypoxia]Onset: 925626-43-1342WlbbrynwPlvz and subcutaneous tissue infections (10 sources)Cellulitis of left lower limb; Translations: [Cellulitis of left lower limb]Onset: 796017-22-6240SeudlptyDxlmpzabc-mitomgj disorders (20 sources)Smoker; Translations: [Nicotine dependence, unspecified, uncomplicated]Onset: 11-21-2023 Resolved: 558094-52-9122BiogzsjLrhtpjz disorders (17 sources)Acquired hypothyroidism; Translations: [Hypothyroidism, unspecified] Onset: 416166-03-7839VvtpohbQljknvcqzgqq (1 source)R60.0 - Localized edema,S81.801A - Unspecified open wound, right lower leg, initial encounter,S81.802A - Unspecified open wound, left lower leg, initial encounter Past or Other Problems Problem ClassificationProblemDateDocumented DateEpisodic/ChronicGastrointestinal hemorrhage (4 sources)Rectal hemorrhage; Translations: [Hemorrhage of anus and rectum] Onset: 521302-44-4550PtgujwfvWwnthtiah (20 sources)Influenza due to Influenza A virus; Translations: [Influenza due to other identified influenza virus with other respiratory manifestations]Onset: 12-09-2024 Resolved: 651890-40-3410HbzfqakvHpekbhgecmr deficiencies (9 sources)Iron deficiency; Translations: [Iron deficiency]Onset: 06-13-2025 32-67-1646BbfwrcqsItwn wounds of head; neck; and trunk (20 sources)Scalp laceration; Translations: [Laceration without foreign body of scalp, sequela]Onset: 438259-30-6373QknokxspTepak and unspecified benign neoplasm (20 sources)Acoustic neuroma; Translations: [Benign neoplasm of cranial nerves] Onset: 01-26-2024 Resolved: 947921-97-7404JjtbmiaVgala circulatory disease (3 sources)Hypotension, unspecified; Translations: [Hypotension, unspecified] Onset: 645824-03-6175RnmwqucxIeopbnns codes; unclassified (3 sources)Tobacco use; Translations: [Tobacco use disorder]Onset: 12-09-2024 58-96-6453VecimcqyJwiddmvb codes; unclassified (1 source)Other specified health status; Translations: [Other specified health status]Onset: 95-16-0464VopttkwtZhlpqanygwub (4 sources)Onset: Results Test NameValueInterpretationReference RangeFacilityBasophils Auto (Bld) [#/Vol] Ordered By: La Pack on 70-24-7744Aziyunovo (Bld) [#/Vol]0.1 10 3/uL0.0-0.1 [facility] HospitalBasophils/100 WBC Auto (Bld)Ordered By: La Pack on 56-17-3731Agvcwxnet/100 WBC (Bld)0.5 %0.2-2.0[facility] HospitalEosinophils/100 WBC Auto (Bld)Ordered By: La Pack on 84-38-3838Rscahljzbot/100 WBC (Bld)1.0 %0.9-7.0[facility] Erythrocyte distribution width Auto (RBC) [Ratio]Ordered By: La Pack on 48-12-7233Bwrwklndwaw distribution width (RBC) [Ratio]16.5 %High11.0-15.0 [facility] HospitalGlobulin Calc (S) [Mass/Vol]Ordered By: La Pack on 95-25-4640Oabxmfjq (S) [Mass/Vol]4.3 g/dLAkron Children'S HospitalGlomerular filtration rate (GFR) estimation in non- AmericanOrdered By: La Pcak on 54-31-5867EFL/1.73 sq M.predicted among non-blacks MDRD (S/P/Bld) [Vol rate/Area]mL/min/{1.73_m2}>=60 mL/min/1.73m 2FFlower HospitalHematocrit Auto (Bld) [Volume fraction]Ordered By: La Pack on 78-86-0802Skyabwcxpu (Bld) [Volume fraction]31.3 %Low36.0-48.0[facility] HospitalHemoglobin [Mass/volume] in BloodOrdered By: La Dalecarmenfariba on 44-38-0395Ybkiclfngd (Bld) [Mass/Vol]9.6 g/dLLow12.0-16.0[facility]S HospitalIron binding capacity [Mass/volume] in Serum or Plasma Ordered By: La Pack on 61-53-1871Qfbb binding capacity [Mass/Vol]292.0 ug/dL250.0-450.0[facility] HospitalIron saturation [Mass Fraction] in Serum or PlasmaOrdered By: Laevan Pack on 11-22-3299Iolm saturation [Mass fraction]13.7 %[facility] HospitalLaboratory - Chemistry and Chemistry - challengeOrdered By: La Ramone on 98-38-1626Geqiveh [Mass/Vol] 3.4 g/dL3.4-5.0[facility] HospitalALP [Catalytic activity/Vol]119 U/AKdai00-152LcpwslnorAkron Children'S HospitalALT [Catalytic activity/Vol]33 U/L 14-59[facility] HospitalAST [Catalytic activity/Vol]14 U/MXca21-98 [facility] HospitalBilirubin [Mass/Vol]0.3 mg/dL0.2-1.0[facility] HospitalCalcium [Mass/Vol]9.3 mg/dL8.5-10.1FFlower HospitalChloride [Moles/Vol]102 mmol/Z00-029FnsutczlxAkron Children'S HospitalCO2 [Moles/Vol]38.6 mmol/LHigh21.0-32.0[facility] Creatinine [Mass/Vol]0.86 mg/dL0.55-1.02[facility] Ferritin [Mass/Vol]95.0 ng/mL8.0-252.0[facility] HospitalGFR/1.73 sq M.predicted MDRD (S/P/Bld) [Vol rate/Area]mL/min/{1.73_m2}>=60 mL/min/1.73m 2 [facility] HospitalGlucose [Mass/Vol]115 mg/pDLert25-856HgnwvnfcnAkron Children'S HospitalIron [Mass/Vol]40.0 ug/dLLow50.0-170.0[facility] HospitalNatriuretic peptide B (Bld) [Mass/Vol]150.0 pg/mL<=900.0[facility] HospitalPotassium [Moles/Vol]4.4 mmol/L3.5-5.1FFlower HospitalPrealbumin [Mass/Vol]21.9 mg/dL20.9-45.5FFlower HospitalProtein [Mass/Vol]7.7 g/dL6.4-8.2FSt. Francis Hospitalodium [Moles/Vol]144 mmol/A261-725UfbgkgrtnAkron Children'S HospitalTransferrin [Mass/Vol]231 mg/iR608-375NapgfigxtAkron Children'S HospitalComment on above: Performed at: [facility] [id number] Director: Ever Pink PhD, Phone: [phone] nitrogen [Mass/Vol]28.0 mg/dLHigh7.0-18.0[facility] HospitalUrea nitrogen/Creatinine [Mass ratio]32.6 mg/mgAkron Children'S HospitalLaboratory - Hematology and Cell countsOrdered By: La Pack on 46-78-1960Mrobetih granulocytes/100 WBC (Bld)0.3 %0.0-0.5FFlower HospitalLeukocytes [#/volume] corrected for nucleated erythrocytes in Blood by Automated counOrdered By: La Pack on 37-33-5043QVV corrected for nucl RBC Auto (Bld) [#/Vol]9.2 10 3/uL 4.0-11.0[facility] HospitalLymphocytes Auto (Bld) [#/Vol]Ordered By: La Pack on 09-38-8459Lusolqmfxbc (Bld) [#/Vol]0.9 10 3/uLLow1.2-3.8 [facility] HospitalLymphocytes/100 WBC Auto (Bld)Ordered By: La Pack on 79-14-7417Eplynrdfyur/100 WBC (Bld)9.6 %Low20.5-60.0[facility] Auto (RBC) [Entitic mass]Ordered By: La Pack on 38-06-4711ZGN (RBC) [Entitic mass]27.8 pg26.7-34.0[facility] MiamisburgHC Auto (RBC) [Mass/Vol]Ordered By: La Pack on 28-53-5742HCXW (RBC) [Mass/Vol]30.7 g/dL29.9-35.2FFlower HospitalMCV Auto (RBC) [Entitic vol]Ordered By: La Pack on 36-23-5460UWX (RBC) [Entitic vol]90.7 fL81.0-99.0[facility] HospitalMonocytes Auto (Bld) [#/Vol]Ordered By: La Pack on 69-81-2638Oqfhfqnmf (Bld) [#/Vol]1.0 10 3/uL High0.3-0.8[facility] HospitalMonocytes/100 WBC Auto (Bld)Ordered By: La Pack on 90-69-7061Pfqmkdqws/100 WBC (Bld)10.3 %1.7-12.0[facility]S HospitalNeutrophils Auto (Bld) [#/Vol]Ordered By: La Pack on 94-23-1208Pmzqyqbmgbw (Bld) [#/Vol]7.2 10 3/uLHigh1.4-6.5FFlower HospitalNeutrophils/100 WBC Auto (Bld)Ordered By: La Pack on 15-68-0960Njwophtgxeq/100 WBC (Bld)78.3 %High43.0-75.0[facility] HospitalNo Panel InformationOrdered By: La Pack on 32-73-1634Qoafwdnwoab # (Auto)0.1 10 3/uL0.0-0.7FFlower HospitalImmature Granulocyte # (Auto)0.03 10 3/uL0.00-0.03[facility] HospitalPlatelet mean volume Auto (Bld) [Entitic vol]Ordered By: La Pack on 54-35-3800Hrroyxmi mean volume (Bld) [Entitic vol]9.5 fL9.5-13.5FFlower Hospital Platelets Auto (Bld) [#/Vol]Ordered By: La Pack on 07-43-3453Ueieovcaz (Bld) [#/Vol]301 10 3/iW501-064VksgczdbzAkron Children'S HospitalRBC Auto (Bld) [#/Vol]Ordered By: La Pack on 88-44-8171AWL (Bld) [#/Vol]3.45 10 6/uLLow 4.20-5.40[facility] Centererum or plasma albumin/globulin mass ratioOrdered By: La Pack on 35-99-9242Cfrqkec/Globulin [Mass ratio]0.8 {ratio}[facility] Medical Centererum or plasma anion gap determination Ordered By: La Pack on 30-47-2525Stjpz gap [Moles/Vol]7.8 mmol/LFFlower HospitalGlobulin Calc (S) [Mass/Vol]Ordered By: La Pack on 69-47-1266Bufwxjaw (S) [Mass/Vol]3.9 g/dLAkron Children'S Hospital Glomerular filtration rate (GFR) estimation in non- AmericanOrdered By: La Pack on 26-62-3728WMJ/1.73 sq M.predicted among non-blacks MDRD (S/P/Bld) [Vol rate/Area]mL/min/{1.73_m2}>=60 mL/min/1.73m 2FFlower HospitalLaboratory - Chemistry and Chemistry - challengeOrdered By: La Pack on 96-64-0941Sncacwg [Mass/Vol]3.6 g/dL3.4-5.0[facility] HospitalALP [Catalytic activity/Vol]111 U/T65-638XdryfqphlAkron Children'S HospitalALT [Catalytic activity/Vol]29 U/P54-48GnxddnvkgAkron Children'S HospitalAST [Catalytic activity/Vol]15 U/T36-60FrbqgroppAkron Children'S Hospital Bilirubin [Mass/Vol]0.3 mg/dL0.2-1.0[facility] HospitalCalcium [Mass/Vol]9.1 mg/dL8.5-10.1FFlower HospitalChloride [Moles/Vol] 102 mmol/J31-259MtztkyvhjAkron Children'S HospitalCO2 [Moles/Vol]34.6 mmol/LHigh 21.0-32.0[facility] HospitalCreatinine [Mass/Vol]0.73 mg/dL 0.55-1.02[facility] HospitalFerritin [Mass/Vol]93.0 ng/mL8.0-252.0 [facility] HospitalGFR/1.73 sq M.predicted MDRD (S/P/Bld) [Vol rate/Area]mL/min/{1.73_m2}>=60 mL/min/1.73m 2FFlower Hospital Glucose [Mass/Vol]107 mg/oMMdks35-451McqabndcmAkron Children'S HospitalPotassium [Moles/Vol]4.2 mmol/L3.5-5.1FFlower HospitalProtein [Mass/Vol] 7.5 g/dL6.4-8.2FSt. Francis Hospitalodium [Moles/Vol]144 mmol/L 136-145[facility] HospitalUrea nitrogen [Mass/Vol]27.0 mg/dLHigh 7.0-18.0[facility] HospitalUrea nitrogen/Creatinine [Mass ratio] 37.0 mg/mgSouthview Medical Centererum or plasma albumin/globulin mass ratioOrdered By: La Pack on 02-84-7709Xqtpbwl/Globulin [Mass ratio]0.9 {ratio}[facility] Centererum or plasma anion gap determination Ordered By: La Pack on 33-81-9583Lyxzm gap [Moles/Vol]11.6 mmol/LFFlower HospitalALL CBC WITH AUTO DIFFon 80-08-7747YNTEZXMOQ ABSOLUTE AUTO0.1NOMS HealthcareBasophils/100 WBC (Bld)0.9 %0.2 - 2.0 %[facility] Eosinophils/100 WBC (Bld)1.3 %0.9 - 7.0 %[facility] CenterErythrocyte distribution width (RBC) [Ratio]15.4 %High11.0 - 15.0 %[facility] CenterHematocrit (Bld) [Volume fraction]39.8 %36.0 - 48.0 %[facility] CenterHemoglobin (Bld) [Mass/Vol]12 g/dL12.0 - 16.0 g/dLNortheast Regional Medical CenterIMMATURE GRANULOCYTES ABS AUTO0.02NOMercy Hospital St. John'sImmature granulocytes/100 WBC (Bld)0.3 %0.0 - 0.5 %[facility] Interpretation and review of laboratory resultsAbnormalN[facility] LYMPHOCYTES ABSOLUTE AUTO0.8LowNortheast Regional Medical CenterLymphocytes/100 WBC (Bld)11.3 %Low 20.5 - 60.0 %[facility] CenterH (RBC) [Entitic mass]27.1 pg26.7 - 34.0 pgWestern Missouri Mental Health CenterHC (RBC) [Mass/Vol]30.2 g/dL29.9 - 35.2 g/dLWestern Missouri Mental Health CenterV (RBC) [Entitic vol]89.8 fL81.0 - 99.0 fLNortheast Regional Medical CenterMONOCYTES ABSOLUTE AUTO0.5NOMercy Hospital St. John'sMonocytes/100 WBC (Bld)7 %1.7 - 12.0 %[facility] CenterNEUTROPHILS ABSOLUTE AUTO5.5NOMercy Hospital St. John'sNeutrophils/100 WBC (Bld)79.2 %High43.0 - 75.0 % [facility] CenterPlatelet mean volume (Bld) [Entitic vol]8.9 fLLow9.5 - 13.5 fL [facility] EO #0.1NWestern Missouri Mental Health Center ENW553NUSGHarry S. Truman Memorial Veterans' [facility] RBC4.43 [facility] IKB7OKEXMercy Hospital St. John'sCLINISYNCNUniversity Hospital THYROID STIM HORMONEon 16-98-2471DNL Qn2.663 m[IU]/LNCenterPointe HospitalALL THYROXINE (T4) FREEon 29-55-3979Kyms T4 [Mass/Vol]0.93 ng/dL0.76 - 1.46 ng/dLNortheast Regional Medical CenterNo Panel Informationon 89-20-6456EBSUWACNUNPIG HealthcareNM ORLY PERF SPECT REST STRon 69-99-8281EufSaint [place] [address] Nuclear Medicine Report Signed Patient: JULIAN MONTAÑO MR#: [id number] : 1955 Acct:[id number] Age/Sex: 69 / F ADM Date: 02/20/25 Loc: NM Attending Dr: Krissy Cortez M.D. Ordering Physician: Krissy Cortez M.D. Date of Service: 02/20/25 Procedure(s): NM orly perf SPECT rest str Accession Number(s): [id number] cc: La Pack MATHEMATICS LECTURER; Krissy Cortez M.D. Patient Name: JULIAN MONTAÑO MR#: [id number] : 1955 Exam Date: 02/20/2025 Ordering Doctor: [...] the study was pending per attending physician [facility]. For more details, please see separate [...] Signed By: 02/21/25 143 DD/ 30 TD/TT: Dairy Husbandry Worker:ABDOULadiologgeraldo, Radiologist, - 02/21/2025 [place] [address] Nuclear Medicine Report Signed Patient: JULIAN MONTAÑO MR#: [id number] : 1955 Acct:[id number] Age/Sex: 69 / F ADM Date: 02/20/25 Loc: NM Attending Dr: Krissy Cortez M.D. Ordering Physician: Krissy Cortez M.D. Date of Service: 02/20/25 Procedure(s): NM orly perf SPECT rest str Accession Number(s): [id number] cc: La Pack MATHEMATICS LECTURER; Krissy Cortez M.D. Patient Name: JULIAN MONTAÑO MR#: [id number] : 1955 Exam Date: 02/20/2025 Ordering Doctor: [...] the study was pending per attending physician [facility]. For more details, please see separate [...] Signed By: 02/21/25 143 DD/ 1431 TD/TT: Dairy Husbandry Worker: [facility] CenterRadiology Study observation (narrative)[facility] PERF SPECT REST STROrdered By: Radiologist Radiology on 74-95-2318EOHQNortheast Regional Medical Center Work Phone: aLL CBC WITH AUTO DIFFon 00-93-2089ZTSNVLLOW ABSOLUTE AUTO0.1NOMS Wayne HospitalBasophils/100 WBC (Bld)0.6 %0.2 - 2.0 %[facility] Eosinophils/100 WBC (Bld)1.5 %0.9 - 7.0 %[facility] Medical CenterErythrocyte distribution width (RBC) [Ratio]15.9 %High11.0 - 15.0 %[facility] CenterHematocrit (Bld) [Volume fraction]36.1 %36.0 - 48.0 %[facility] CenterHemoglobin (Bld) [Mass/Vol] 11.6 g/dLLow12.0 - 16.0 g/dLSt. Louis Behavioral Medicine InstituteMATURE GRANULOCYTES ABS AUTO0.04 HighThree Rivers Healthcaremature granulocytes/100 WBC (Bld)0.4 %0.0 - 0.5 %[facility] CenterInterpretation and review of laboratory resultsAbnormalN[facility] Center LYMPHOCYTES ABSOLUTE AUTO1.6NOMercy Hospital St. John'sLymphocytes/100 WBC (Bld)15.8 %Low 20.5 - 60.0 %[facility] CenterH (RBC) [Entitic mass]28.7 pg26.7 - 34.0 pgWestern Missouri Mental Health CenterHC (RBC) [Mass/Vol]32.1 g/dL29.9 - 35.2 g/dLNOMS HealthcareMCV (RBC) [Entitic vol]89.4 fL81.0 - 99.0 fLNOMS HealthcareMONOCYTES ABSOLUTE MJHG1Izrt NOMS HealthcareMonocytes/100 WBC (Bld)9.6 %1.7 - 12.0 %[facility] NEUTROPHILS ABSOLUTE AUTO7.4HighNOMS HealthcareNeutrophils/100 WBC (Bld)72.1 % 43.0 - 75.0 %NOMS HealthcarePlatelet mean volume (Bld) [Entitic vol]9.1 fLLow9.5 - 13.5 fLNOMS HealthcareTBH EO #0.2NOMS HealthcareTBH IMF986SLNU HealthcareTBH RBC4.04LowNOMS HealthcareTBH WBC10.2NOMS HealthcareCLINISYNCNOMS HealthcareMM TOMOSYNTHESIS SCREENING BIon 13-90-6559MsqSaint [place] [address] Mammography Report Signed Patient: JULIAN MONTAÑO MR#: [id number] : 1955 Acct:[id number] Age/Sex: 69 / F ADM Date: 02/18/25 Loc: MAMMO Attending Dr: La Pack NP Ordering Physician: La Pack NP Results: Date of Service: 02/18/25 Follow Up: Procedure(s): MM tomosynthesis screening BI Accession Number(s): [id number] cc: La Pack NP Patient Name: JULIAN MONTAÑO MR#: [id number] : 1955 Exam Date: 02/18/2025 Ordering Doctor: [...] uterine cancer at age 53. LOCATION: [facility] BREAST COMPOSITION: The breasts are almost [...] Signed By: 02/18/25 1554 DD/ 1553 TD/TT: Dairy Husbandry Worker:TBHRadiology, Radiologist, MD - 02/18/2025 [place] [address] Mammography Report Signed Patient: JULIAN MONTAÑO MR#: [id number] : 1955 Acct:[id number] Age/Sex: 69 / F ADM Date: 02/18/25 Loc: MAMMO Attending Dr: La Pack NP Ordering Physician: La Pack NP Results: Date of Service: 02/18/25 Follow Up: Procedure(s): MM tomosynthesis screening BI Accession Number(s): [id number] cc: La Pack NP Patient Name: JULIAN MONTAÑO MR#: [id number] : 1955 Exam Date: 02/18/2025 Ordering Doctor: RISHABH Pakc CNP RADIOLOGY REPORT PROCEDURE: MM TOMOSYNTHESIS SCREENING [...] uterine cancer at age 53. LOCATION: [facility] BREAST COMPOSITION: The breasts are almost [...] Signed By: 02/18/25 1554 DD/ 1553 TD/TT: Dairy Husbandry Worker: SONI HealthcareRadiology Study observation (narrative)[facility] TOMOSYNTHESIS SCREENING BIOrdered By: Radiologist Radiology on 31-56-2280KZSL [place] Work Phone: alanine aminotransferase [Enzymatic activity/volume] in Serum or PlasmaOrdered By: Daniel Garza on 75-91-0701LWF [Catalytic activity/Vol]Alanine aminotransferase [Enzymatic activity/volume] in Serum or PlasmaHigh7-52[facility] HospitalAlbumin [Mass/volume] in Serum or Plasma by Bromocresol green (BCG) dye binding methoOrdered By: Daniel Garza on 65-75-3216Npkamrh BCG dye [Mass/Vol]Albumin [Mass/volume] in Serum or Plasma by Bromocresol green (BCG) dye binding metho3.5-5.7FFlower HospitalAlkaline phosphatase [Enzymatic activity/volume] in Serum or PlasmaOrdered By: Daniel Garza on 17-15-3762XFC [Catalytic activity/Vol]Alkaline phosphatase [Enzymatic activity/volume] in Serum or Tiflsn04-848WlmbdvqnaAkron Children'S HospitalAspartate aminotransferase [Enzymatic activity/volume] in Serum or Plasma Ordered By: Daniel Garza on 08-73-9159UIX [Catalytic activity/Vol]Aspartate aminotransferase [Enzymatic activity/volume] in Serum or Xfduwo94-77AunromeumAkron Children'S HospitalBasophils Auto (Bld) [#/Vol]Ordered By: Daniel Garza on 96-48-9117Qtmjiulzn (Bld) [#/Vol]Automated basophil count0.0-0.2FFlower HospitalBasophils/100 WBC Auto (Bld)Ordered By: Daniel Garza on 69-86-6416Mvtqplnba/100 WBC (Bld)Automated basophil %.[facility]S HospitalBilirubin.total [Mass/volume] in Serum or PlasmaOrdered By: Daniel Garza on 45-49-2077Kdkxstpbq [Mass/Vol]Bilirubin.total [Mass/volume] in Serum or Plasma0.3-1.0[facility] HospitalCalcium [Mass/volume] in Serum or PlasmaOrdered By: Daniel Garza on 85-34-5412Akmosmk [Mass/Vol]Calcium [Mass/volume] in Serum or Plasma8.6-10.3FFlower HospitalCarbon dioxide, total [Moles/volume] in Serum or PlasmaOrdered By: Daniel Garza on 52-74-1836YT8 [Moles/Vol]Carbon dioxide, total [Moles/volume] in Serum or Plasma 21.0-31.0[facility] HospitalChloride [Moles/volume] in Serum or PlasmaOrdered By: Daniel Garza on 68-48-9222Ehocincc [Moles/Vol]Chloride [Moles/volume] in Serum or JktdvvCwv93-430YsqehqxonAkron Children'S Hospital Complete Blood Count Auto Diffon 30-66-5871Aurigtuxy (Bld) [#/Vol]0.0 10*3/uL Normal0.0-0.2The [facility] Physician GroupComment on above:Result Comment: PERFORMED BY: [facility] [address] [place] [address] PATHOLOGIST DIGITAL PRINTER OPERATOR MANDY ACUÑA M.D.Performed By: #### CMP, CBC ####[place] [place] [address] USABasophils/100 WBC (Bld)0.2 % Normal.The [facility] Physician GroupComment on above:Performed By: #### CMP, CBC ####[address] [place] [address] [place] Eosinophils (Bld) [#/Vol]0.0 10*3/uLNormal0.0-0.45The [facility] Comment on above:Performed By: #### CMP, CBC ####[place] [address] USAEosinophils/100 WBC (Bld)0.0 %Normal. The [facility] Physician GroupComment on above:Performed By: #### CMP, CBC ####[address] Erythrocyte distribution width (RBC) [Ratio]15.3 %Gtcbrr43.9-15.3The [facility] Physician GroupComment on above:Performed By: #### CMP, CBC ####[place] [address] USAHematocrit (Bld) [Volume fraction]40.4 %Mhgdvo48.0-46.4The [facility] Physician GroupComment on above:Performed By: #### CMP, CBC ####[place] [address] USAHemoglobin (Bld) [Mass/Vol]13.4 g/zUDfnytw20.8-15.4 The [facility] Physician GroupComment on above:Performed By: #### CMP, CBC ####[place] [address] [place] Lymphocytes (Bld) [#/Vol]0.6 10*3/uLLow1.00-4.8The [facility] Comment on above:Performed By: #### CMP, CBC ####[place] [address] USALymphocytes/100 WBC (Bld)7.0 %Normal. The [facility] Physician GroupComment on above:Performed By: #### CMP, CBC ####[place] [address] USAMCH (RBC) [Entitic mass]28.5 sjOlutuy08.7-34.3The [facility] Physician GroupComment on above:Performed By: #### CMP, CBC ####[place] [address] USAMCV (RBC) [Entitic vol]85.6 aNUhxqlv76-257Qdj [facility] Physician GroupComment on above:Performed By: #### CMP, CBC ####[place] [address] USAMean Corpuscular HGB Conc33.3 g/rNRzpfai32.0-35.0The [facility] Physician GroupComment on above:Performed By: #### CMP, CBC ####[place] [address] USAMonocytes (Bld) [#/Vol]0.7 10*3/uLNormal 0.0-0.8The [facility] Physician GroupComment on above:Performed By: #### CMP, CBC ####[place] [address] [place] Monocytes/100 WBC (Bld)8.2 %Normal.The [facility] Physician GroupComment on above:Performed By: #### CMP, CBC ####[place] [address] USANeutrophils (Bld) [#/Vol]7.2 10*3/uLNormal1.8-7.7The [facility] Physician GroupComment on above:Performed By: #### CMP, CBC ####[place] [address] [place] Neutrophils/100 WBC (Bld)84.6 %Normal.The [facility] Physician GroupComment on above:Performed By: #### CMP, CBC ####[place] [address] USANRBC%0.1 /100{WBC}Normal0-0.5The [facility] Physician GroupComment on above:Performed By: #### CMP, CBC ####[place] [address] USAPlatelet mean volume (Bld) [Entitic vol]7.4 fLNormal6.3-10.7The [facility] Physician GroupComment on above: Performed By: #### CMP, CBC ####[place] [address] USAPlatelets (Bld) [#/Vol]276 10*3/oVPnmssk607-679Gxw [facility] Physician GroupComment on above:Performed By: #### CMP, CBC ####[address] [address] USARBC (Bld) [#/Vol]4.72 10*6/uLNormal3.60-5.00The [facility] Physician GroupComment on above:Performed By: #### CMP, CBC ####[address] [address] USAWBC (Bld) [#/Vol]8.6 10*3/uLNormal3.8-11.6The [facility] Physician GroupComment on above:Performed By: #### CMP, CBC ####[address] [address] [facility] Comprehensive Metabolic Panelon 01-92-4913Jhczwos [Mass/Vol]3.7 g/dLNormal 3.5-5.7The [facility] Physician GroupComment on above:Performed By: #### CMP, CBC ####[address] [address] Albumin/Globulin [Mass ratio]1.2 {ratio}NormalThe [facility] Physician [facility] Comment on above:Performed By: #### CMP, CBC ####[address] [address] USAALP [Catalytic activity/Vol]84 U/L Wetcaa90-414Pwc [facility] Physician GroupComment on above:Performed By: #### CMP, CBC ####[address] [address] USAALT [Catalytic activity/Vol]55 U/LHigh7-52The [facility] Comment on above:Performed By: #### CMP, CBC ####[address] [address] USAAnion gap [Moles/Vol]12.7 mmol/LNormal 6.0-15.0The [facility] Physician GroupComment on above:Performed By: #### CMP, CBC ####[address] [address] USAAST [Catalytic activity/Vol]29 U/EActpja15-22Mcb [facility] Physician GroupComment on above:Performed By: #### CMP, CBC ####[address] [address] USABilirubin [Mass/Vol]0.6 mg/dLNormal0.3-1.0The [facility] Physician GroupComment on above:Performed By: #### CMP, CBC ####[address] [address] USACalcium [Mass/Vol]9.2 mg/dLNormal8.6-10.3The [facility] Physician GroupComment on above: Performed By: #### CMP, CBC ####[address] [address] USAChloride [Moles/Vol]93 mmol/OQrf05-314Fou [facility] Physician GroupComment on above:Performed By: #### CMP, CBC ####[address] [address] USACO2 [Moles/Vol]29.4 mmol/GLxlwvu95.0-31.0The [facility] Physician GroupComment on above:Performed By: #### CMP, CBC ####[address] [address] USACreatinine [Mass/Vol]0.81 mg/dLNormal0.60-1.20The [facility] Physician GroupComment on above:Performed By: #### CMP, CBC ####[address] [address] USACreatinine Clr Calc Hrsjeabx95.51 NormalThe [facility] Physician GroupComment on above:Result Comment: PERFORMED BY: [facility] [address] [place] [address] PATHOLOGIST DIGITAL PRINTER OPERATOR MANDY ACUÑA M.D.Performed By: #### CMP, CBC ####[address] [address] USAGFR/1.73 sq M.predicted MDRD (S/P/Bld) [Vol rate/Area]mL/min/{1.73_m2}NormalThe [facility] Comment on above:Performed By: #### CMP, CBC ####[place] [address] USAGlobulin (S) [Mass/Vol]3.2 g/dLNormal The [facility] Physician GroupComment on above:Performed By: #### CMP, CBC ####[place] [address] USAGlucose [Mass/Vol]145 mg/bZSzai61-231Kwj [facility] Physician GroupComment on above: Result Comment: Random Glucose Reference Range is dependent on time and content of last meal. Glucose of more than 200 mg/dL in a nonstressed, ambulatory subject supports the diagnosis of Diabetes Mellitus. ADA recommended reference rangePerformed By: #### CMP, CBC ####[place] [address] USAPotassium [Moles/Vol] 4.1 mmol/LNormal3.5-5.1The [facility] Physician GroupComment on above:Performed By: #### CMP, CBC ####[place] [address] USAProtein [Mass/Vol]6.9 g/dLNormal6.4-8.9The [facility] Comment on above:Performed By: #### CMP, CBC ####[place] [address] USASodium [Moles/Vol]131 mmol/WByt662-770 The [facility] Physician GroupComment on above:Performed By: #### CMP, CBC ####[place] [address] USAUrea nitrogen [Mass/Vol]24 mg/dLNormal7-25The [facility] Physician GroupComment on above:Performed By: #### CMP, CBC ####[place] [address] USACreatinine [Mass/volume] in Serum or PlasmaOrdered By: Daniel Garza on 46-44-9315Zgtghzrqcz [Mass/Vol]Creatinine [Mass/volume] in Serum or Plasma0.60-1.20[facility]S HospitalEosinophils Auto (Bld) [#/Vol]Ordered By: Daniel Garza on 63-76-7067Tguzwzrwfzm (Bld) [#/Vol]Automated eosinophil count0.0-0.45[facility] HospitalEosinophils/100 WBC Auto (Bld)Ordered By: Daniel Garza on 83-28-3125Uuynknnnznq/100 WBC (Bld) Automated eosinophil %.[facility]S HospitalErythrocyte distribution width Auto (RBC) [Ratio]Ordered By: Daniel Garza on 71-35-0912Myakgastjhi distribution width (RBC) [Ratio]Erythrocyte distribution width [Ratio] by Automated count11.9-15.3FFlower HospitalGlobulin Calc (S) [Mass/Vol]Ordered By: Daniel Garza on 03-11-7711Mjsakgvy (S) [Mass/Vol]Serum globulin measurement by calculation (mass/volume)[facility] HospitalGlucose Glucometer (BldC) [Mass/Vol]Ordered By: Daniel Garza on 12-14-2024 Glucose [Mass/Vol]Capillary blood glucose measurement by glucometer (mass/volume)[facility] HospitalComment on above:Random Glucose Reference Range is dependent on time and content of last meal. Glucose of more than 200 mg/dL in a nonstressed, ambulatory subject supports the diagnosis of Diabetes Mellitus.Glucose Poct Glucometerson 90-92-8877Rxlrxre [Mass/Vol]236 mg/dLNoReplaced by [facility] Physician GroupComment on above:Result Comment: Random Glucose Reference Range is dependent on time and content of last meal. Glucose of more than 200 mg/dL in a nonstressed, ambulatory subject supports the diagnosis of Diabetes Mellitus. PERFORMED BY: [facility] [id number] [place] [address] PATHOLOGIST DIGITAL PRINTER OPERATOR MANDY ACUÑA M.D.Performed By: #### ABG #### Point of Care testing ,Glucose [Mass/Vol]154 mg/dLNoReplaced by [facility] Physician GroupComment on above: Result Comment: Random Glucose Reference Range is dependent on time and content of last meal. Glucose of more than 200 mg/dL in a nonstressed, ambulatory subject supports the diagnosis of Diabetes Mellitus. PERFORMED BY: [facility] [address] [place] [address] PATHOLOGIST DIGITAL PRINTER OPERATOR MANDY ACUÑA M.D.Performed By: #### GLULS #### Point of Care testing ,Glucose [Mass/Vol]105 mg/dLShorePoint Health Punta Gorda Physician GroupComment on above: Result Comment: Random Glucose Reference Range is dependent on time and content of last meal. Glucose of more than 200 mg/dL in a nonstressed, ambulatory subject supports the diagnosis of Diabetes Mellitus. PERFORMED BY: [facility] [address] [place] [address] PATHOLOGIST DIGITAL PRINTER OPERATOR MANDY ACUÑA M.D.Performed By: #### ABG #### Point of Care testing ,Glucose [Mass/volume] in Serum or PlasmaOrdered By: Daniel Garza on 12-14-2024 Glucose [Mass/Vol]Glucose [Mass/volume] in Serum or WspxaiZxvs84-891OxqvlzcjbAkron Children'S HospitalComment on above:ADA recommended reference rangeRandom Glucose Reference Range is dependent on time and content of last meal. Glucose of more than 200 mg/dL in a nonstressed, ambulatory subject supports the diagnosisof Diabetes Mellitus.Hematocrit Auto (Bld) [Volume fraction]Ordered By: Daniel Garza on 60-74-1471Jzoviffprj (Bld) [Volume fraction]Hematocrit [Volume Fraction] of Blood by Automated count34.0-46.4FFlower Hospital Hemoglobin [Mass/volume] in BloodOrdered By: Daniel Garza on 17-16-7522Ueldgiqanr (Bld) [Mass/Vol]Hemoglobin [Mass/volume] in Blood11.8-15.4FFlower HospitalLeukocytes [#/volume] corrected for nucleated erythrocytes in Blood by Automated counOrdered By: Daniel Garza on 55-71-3693DYS corrected for nucl RBC Auto (Bld) [#/Vol]Leukocytes [#/volume] corrected for nucleated erythrocytes in Blood by Automated coun3.8-11.6FFlower Hospital Lymphocytes Auto (Bld) [#/Vol]Ordered By: Daniel Garza on 41-59-9372Kuejvrlpnoh (Bld) [#/Vol]Lymphocytes [#/volume] in Blood by Automated countLow1.00-4.8 [facility]S HospitalLymphocytes/100 WBC Auto (Bld)Ordered By: Daniel Garza on 08-21-4849Ivjalnmeluc/100 WBC (Bld)Lymphocytes/100 leukocytes in Blood by Automated count.[facility]'S HospitalMCH Auto (RBC) [Entitic mass]Ordered By: Daniel Garza on 41-58-2535BEV (RBC) [Entitic mass]MCH [Entitic mass] by Automated count24.7-34.3FFlower HospitalMCHC Auto (RBC) [Mass/Vol]Ordered By: Daniel Garza on 86-95-9056WUFG (RBC) [Mass/Vol]MCHC [Mass/volume] by Automated count32.0-35.0[facility] HospitalMCV Auto (RBC) [Entitic vol]Ordered By: Daniel Garza on 91-62-8904QHB (RBC) [Entitic vol]MCV [Entitic volume] by Automated -080WpvxqrvovAkron Children'S HospitalMonocytes Auto (Bld) [#/Vol]Ordered By: Daniel Garza on 14-83-4074Gdrjgztbq (Bld) [#/Vol]Automated blood monocyte count0.0-0.8[facility] HospitalMonocytes/100 WBC Auto (Bld)Ordered By: Daniel Garza on 12-14-2024 Monocytes/100 WBC (Bld)Automated monocyte %.[facility] Neutrophils Auto (Bld) [#/Vol]Ordered By: Daniel Garza on 83-20-1602Xrbpkhiseuf (Bld) [#/Vol]Neutrophils [#/volume] in Blood by Automated count1.8-7.7FFlower HospitalNeutrophils/100 WBC Auto (Bld)Ordered By: Daniel Garza on 04-75-9183Rbchgsrxcqr/100 WBC (Bld)Automated neutrophil %.[facility]S HospitalNo Panel InformationOrdered By: Daniel Garza on 41-30-5734Tigwpwpvw GFR (CKD-EPI)> 60.0 mL/MinAkron Children'S HospitalPharmacy Creatinine Clearance (Chem66.51[facility]'S HospitalNucleated erythrocytes [Presence] in Blood by Automated countOrdered By: Daniel Garza on 12-14-2024 Nucleated RBC Auto Ql (Bld)Nucleated erythrocytes [Presence] in Blood by Automated count0-0.5FFlower HospitalPlatelet mean volume Auto (Bld) [Entitic vol]Ordered By: Daniel Garza on 93-62-6035Jpljwzss mean volume (Bld) [Entitic vol]Platelet mean volume [Entitic volume] in Blood by Automated count6.3-10.7FFlower HospitalPlatelets Auto (Bld) [#/Vol] Ordered By: Daniel Garza on 63-88-6443Npakswsmq (Bld) [#/Vol]Platelets [#/volume] in Blood by Automated sviuf347-285GehxjxeyaAkron Children'S HospitalPotassium [Moles/volume] in Serum or PlasmaOrdered By: Daniel Garza on 50-51-7405Kvsbvynqm [Moles/Vol]Potassium [Moles/volume] in Serum or Plasma3.5-5.1FFlower HospitalProtein [Mass/volume] in Serum or PlasmaOrdered By: Daniel Garza on 40-43-2723Xghplhm [Mass/Vol]Protein [Mass/volume] in Serum or Plasma6.4-8.9 [facility]S HospitalRBC Auto (Bld) [#/Vol]Ordered By: Daniel Garza on 72-44-4785ERX (Bld) [#/Vol]Erythrocytes [#/volume] in Blood by Automated count3.60-5.00Southview Medical Centererum or plasma albumin/globulin mass ratioOrdered By: Dainel Garza on 22-36-1318Witmhfe/Globulin [Mass ratio] Serum or plasma albumin/globulin mass ratioAkron Children'S Hospital Serum or plasma anion gap determinationOrdered By: Daniel Garza on 12-14-2024 Anion gap [Moles/Vol]Serum or plasma anion gap determination6.0-15.0[facility] CenterSodium [Moles/volume] in Serum or PlasmaOrdered By: Daniel Garza on 91-83-1808Hfvqiv [Moles/Vol]Sodium [Moles/volume] in Serum or Plasma Egk391-168QbbzmntjwAkron Children'S HospitalUrea nitrogen [Mass/volume] in Serum or PlasmaOrdered By: Daniel Garza on 48-84-8561Btsz nitrogen [Mass/Vol]Urea nitrogen [Mass/volume] in Serum or Plasma7-25[facility] WBC Auto (Bld) [#/Vol]Ordered By: Daniel Garza on 12-74-9985ZCR (Bld) [#/Vol] Leukocytes [#/volume] in Blood by Automated count3.8-11.6FFlower HospitalComplete Blood Count Auto Diffon 64-44-5775Vcmctsizm (Bld) [#/Vol] 0.0 10*3/uLNormal0.0-0.2The [facility] Physician GroupComment on above:Result Comment: PERFORMED BY: [facility] [address] [place] [address] PATHOLOGIST DIGITAL PRINTER OPERATOR MANDY ACUÑA M.D.Performed By: #### CBC, CMP ####[place] [address] USABasophils/100 WBC (Bld)0.1 % Normal.The [facility] Physician GroupComment on above:Performed By: #### CBC, CMP ####[place] [address] [place] Eosinophils (Bld) [#/Vol]0.0 10*3/uLNormal0.0-0.45The [facility] Comment on above:Performed By: #### CBC, CMP ####[place] [address] USAEosinophils/100 WBC (Bld)0.0 %Normal. The [facility] Physician GroupComment on above:Performed By: #### CBC, CMP ####[address] Erythrocyte distribution width (RBC) [Ratio]15.4 %High11.9-15.3The [facility] Physician GroupComment on above:Performed By: #### CBC, CMP ####[place] [address] USAHematocrit (Bld) [Volume fraction]40.5 %Zxkaby74.0-46.4The [facility] Physician GroupComment on above:Performed By: #### CBC, CMP ####[place] [address] USAHemoglobin (Bld) [Mass/Vol]13.4 g/eGYxtsup95.8-15.4 The [facility] Physician GroupComment on above:Performed By: #### CBC, CMP ####[place] [address] [place] Lymphocytes (Bld) [#/Vol]0.7 10*3/uLLow1.00-4.8The [facility] Comment on above:Performed By: #### CBC, CMP ####[place] [address] USALymphocytes/100 WBC (Bld)6.4 %Normal. The [facility] Physician GroupComment on above:Performed By: #### CBC, CMP ####[place] [address] USAMCH (RBC) [Entitic mass]28.5 piFykezd19.7-34.3The [facility] Physician GroupComment on above:Performed By: #### CBC, CMP ####[place] [address] USAMCV (RBC) [Entitic vol]86.4 mGCsbccc05-963Cur [facility] Physician GroupComment on above:Performed By: #### CBC, CMP ####[place] [address] USAMean Corpuscular HGB Conc33.0 g/kKEnonlx77.0-35.0The [facility] Physician GroupComment on above:Performed By: #### CBC, CMP ####[place] [address] USAMonocytes (Bld) [#/Vol]0.7 10*3/uLNormal 0.0-0.8The [facility] Physician GroupComment on above:Performed By: #### CBC, CMP ####[place] [address] [place] Monocytes/100 WBC (Bld)6.5 %Normal.The [facility] Physician GroupComment on above:Performed By: #### CBC, CMP ####[place] [address] USANeutrophils (Bld) [#/Vol]9.3 10*3/uLHigh1.8-7.7The [facility] Physician GroupComment on above:Performed By: #### CBC, CMP ####[place] [address] [place] Neutrophils/100 WBC (Bld)87.0 %Normal.The [facility] Physician GroupComment on above:Performed By: #### CBC, CMP ####[place] [address] USANRBC%0.1 /100{WBC}Normal0-0.5The [facility] Physician GroupComment on above:Performed By: #### CBC, CMP ####[place] [address] USAPlatelet mean volume (Bld) [Entitic vol]7.3 fLNormal6.3-10.7The [facility] Physician GroupComment on above: Performed By: #### CBC, CMP ####[place] [address] USAPlatelets (Bld) [#/Vol]302 10*3/uMYkyrnv705-278Szg [facility] Physician GroupComment on above:Performed By: #### CBC, CMP ####[place] [address] USARBC (Bld) [#/Vol]4.68 10*6/uLNormal3.60-5.00The [facility] Physician GroupComment on above:Performed By: #### CBC, CMP ####[address] [address] USAWBC (Bld) [#/Vol]10.6 10*3/uLNormal3.8-11.6The [facility] Physician GroupComment on above:Performed By: #### CBC, CMP ####[address] [address] [facility] Comprehensive Metabolic Panelon 25-16-0795Nhahsek [Mass/Vol]3.8 g/dLNormal 3.5-5.7The [facility] Physician GroupComment on above:Performed By: #### CBC, CMP ####[address] [address] [facility] Albumin/Globulin [Mass ratio]1.2 {ratio}NormalThe [facility] Physician [facility] Comment on above:Performed By: #### CBC, CMP ####[address] [address] USAALP [Catalytic activity/Vol]84 U/L Qapaze05-062Dob [facility] Physician GroupComment on above:Performed By: #### CBC, CMP ####[address] [address] USAALT [Catalytic activity/Vol]65 U/LHigh7-52The [facility] Physician [facility] Comment on above:Performed By: #### CBC, CMP ####[address] [address] USAAnion gap [Moles/Vol]14.3 mmol/LNormal 6.0-15.0The [facility] Physician GroupComment on above:Performed By: #### CBC, CMP ####[address] [address] USAAST [Catalytic activity/Vol]38 U/IDbanqk44-69Plf [facility] Physician GroupComment on above:Performed By: #### CBC, CMP ####[address] [address] USABilirubin [Mass/Vol]0.5 mg/dLNormal0.3-1.0The [facility] Physician GroupComment on above:Performed By: #### CBC, CMP ####[address] [address] USACalcium [Mass/Vol]8.9 mg/dLNormal8.6-10.3The [facility] Physician GroupComment on above: Performed By: #### CBC, CMP ####[address] [address] USAChloride [Moles/Vol]95 mmol/FImt18-972Kcf [facility] Physician GroupComment on above:Performed By: #### CBC, CMP ####[address] [address] USACO2 [Moles/Vol]30.8 mmol/JZvtyxj23.0-31.0The [facility] Physician GroupComment on above:Performed By: #### CBC, CMP ####[address] [address] USACreatinine [Mass/Vol]0.99 mg/dLNormal0.60-1.20The [facility] Physician GroupComment on above:Performed By: #### CBC, CMP ####[place] [id number] USACreatinine Clr Calc Qjgiwqkm41.42 NormalThe [facility] Physician GroupComment on above:Result Comment: PERFORMED BY: [address] [place] [address] PATHOLOGIST DIGITAL PRINTER OPERATOR MANDY ACUÑA M.D.Performed By: #### CBC, CMP ####[place] [id number] USAGFR/1.73 sq M.predicted MDRD (S/P/Bld) [Vol rate/Area]mL/min/{1.73_m2}NormalThe [facility] Comment on above:Performed By: #### CBC, CMP ####[address] [address] USAGlobulin (S) [Mass/Vol]3.1 g/dLNormal The [facility] Physician GroupComment on above:Performed By: #### CBC, CMP ####[place] [address] USAGlucose [Mass/Vol]97 mg/oCOwoiqx96-310Rpr [facility] Physician GroupComment on above: Result Comment: Random Glucose Reference Range is dependent on time and content of last meal. Glucose of more than 200 mg/dL in a nonstressed, ambulatory subject supports the diagnosis of Diabetes Mellitus. ADA recommended reference rangePerformed By: #### CBC, CMP ####[place] [id number] USAPotassium [Moles/Vol] 4.1 mmol/LNormal3.5-5.1The [facility] Physician [facility]iComment on above:Performed By: #### CBC, CMP ####[place] [id number] USAProtein [Mass/Vol]6.9 g/dLNormal6.4-8.9The [facility] Comment on above:Performed By: #### CBC, CMP ####[place] [address] USASodium [Moles/Vol]136 mmol/LNormal 136-145The [facility] Physician [facility] BiloxiComment on above:Performed By: #### CBC, CMP ####[place] [id number] USAUrea nitrogen [Mass/Vol]22 mg/dLNormal7-25The [facility] Physician [facility]oxiComment on above:Performed By: #### CBC, CMP ####[place] [id number] USAGlucose Poct Glucometerson 59-35-3702Xbqlfch2Hnc7: Cleaned MeterNoReplaced by [facility] Physician [facility] BiloxiComment on above:Result Comment: PERFORMED BY: [place] [id number] PATHOLOGIST DIGITAL PRINTER OPERATOR MANDY ACUÑA M.D.Performed By: #### GLULS ####Point of Care testing, Glucose [Mass/Vol]277 mg/dLNoReplaced by [facility] Physician [facility] BiloxiComment on above: Result Comment: Random Glucose Reference Range is dependent on time and content of last meal. Glucose of more than 200 mg/dL in a nonstressed, ambulatory subject supports the diagnosis of Diabetes Mellitus.Performed By: #### GLULS ####Point of Care testing,Glucose [Mass/Vol]141 mg/dLNoReplaced by [facility] Physician GroupComment on above:Result Comment: Random Glucose Reference Range is dependent on time and content of last meal. Glucose of more than 200 mg/dL in a nonstressed, ambulatory subject supports the diagnosis of Diabetes Mellitus. PERFORMED BY: [place] [id number] PATHOLOGIST DIGITAL PRINTER OPERATOR MANDY ACUÑA M.D.Performed By: #### GLULS ####Point of Care testing, Glucose [Mass/Vol]150 mg/dLShorePoint Health Punta Gorda Physician GroupComment on above: Result Comment: Random Glucose Reference Range is dependent on time and content of last meal. Glucose of more than 200 mg/dL in a nonstressed, ambulatory subject supports the diagnosis of Diabetes Mellitus. PERFORMED BY: [facility] [address] [place] [address] PATHOLOGIST DIGITAL PRINTER OPERATOR MANDY ACUÑA M.D.Performed By: #### GLULS #### Point of Care testing ,Glucose [Mass/Vol]117 mg/dLNoReplaced by [facility] Physician GroupComment on above: Result Comment: Random Glucose Reference Range is dependent on time and content of last meal. Glucose of more than 200 mg/dL in a nonstressed, ambulatory subject supports the diagnosis of Diabetes Mellitus. PERFORMED BY: [facility] [address] [place] [address] PATHOLOGIST DIGITAL PRINTER OPERATOR MANDY ACUÑA M.D.Performed By: #### GLULS ####Point of Care testing,No Panel InformationOrdered By: Daniel Garza on 35-90-0511Fcobvlx Glucose Comment Glu2: cleaned [facility] HospitalComplete Blood Count Auto Diffon 65-58-5670Usemfgrzk (Bld) [#/Vol]0.0 10*3/uLNormal0.0-0.2The [facility] Physician GroupComment on above:Result Comment: PERFORMED BY: [facility] [address] [place] [address] PATHOLOGIST DIGITAL PRINTER OPERATOR MANDY ACUÑA M.D.Performed By: #### ABG #### Point of Care testing ,Basophils/100 WBC (Bld)0.0 %Normal.The [facility] Physician GroupComment on above:Performed By: #### ABG #### Point of Care testing ,Eosinophils (Bld) [#/Vol]0.0 10*3/uLNormal0.0-0.45The [facility] Comment on above:Performed By: #### ABG #### Point of Care testing ,Eosinophils/100 WBC (Bld)0.0 %Normal.The [facility] Physician GroupComment on above:Performed By: #### ABG #### Point of Care testing ,Erythrocyte distribution width (RBC) [Ratio]15.8 %High11.9-15.3The [facility] Physician GroupComment on above:Performed By: #### ABG #### Point of Care testing ,Hematocrit (Bld) [Volume fraction]34.5 %Qmiocr25.0-46.4The [facility] Physician GroupComment on above:Performed By: #### ABG #### Point of Care testing ,Hemoglobin (Bld) [Mass/Vol]11.3 g/dLLow11.8-15.4The [facility] Physician [facility] Comment on above:Performed By: #### ABG #### Point of Care testing ,Lymphocytes (Bld) [#/Vol]0.3 10*3/uLLow1.00-4.8The [facility] Comment on above:Performed By: #### ABG #### Point of Care testing ,Lymphocytes/100 WBC (Bld)2.2 %Normal.The [facility] Physician GroupComment on above:Performed By: #### ABG #### Point of Care testing ,MCH (RBC) [Entitic mass]28.0 keJzdktr71.7-34.3The [facility] Comment on above:Performed By: #### ABG #### Point of Care testing ,MCV (RBC) [Entitic vol]85.4 fLYeibha25-759Qkt [facility] Physician GroupComment on above:Performed By: #### ABG #### Point of Care testing ,Mean Corpuscular HGB Conc32.8 g/tBWmezvx52.0-35.0The [facility] Physician [facility] Comment on above:Performed By: #### ABG #### Point of Care testing ,Monocytes (Bld) [#/Vol]0.6 10*3/uLNormal0.0-0.8The [facility] Comment on above:Performed By: #### ABG #### Point of Care testing ,Monocytes/100 WBC (Bld)4.8 %Normal.The [facility] Physician GroupComment on above:Performed By: #### ABG #### Point of Care testing ,Neutrophils (Bld) [#/Vol]10.8 10*3/uLHigh1.8-7.7The [facility] Comment on above:Performed By: #### ABG #### Point of Care testing ,Neutrophils/100 WBC (Bld)93.0 %Normal.The [facility] Physician GroupComment on above:Performed By: #### ABG #### Point of Care testing ,NRBC%0.0 /100{WBC}Normal0-0.5The [facility] Physician GroupComment on above: Performed By: #### ABG #### Point of Care testing ,Platelet mean volume (Bld) [Entitic vol]7.4 fLNormal6.3-10.7The [facility] Physician GroupComment on above:Performed By: #### ABG #### Point of Care testing ,Platelets (Bld) [#/Vol]282 10*3/vUHnqmgj383-633Utl [facility] Phys[facility] Comment on above:Performed By: #### ABG #### Point of Care testing ,RBC (Bld) [#/Vol]4.04 10*6/uLNormal3.60-5.00The [facility] Physician [facility] Comment on above:Performed By: #### ABG #### Point of Care testing ,WBC (Bld) [#/Vol]11.6 10*3/uLNormal3.8-11.6The [facility] Physician GroupComment on above:Performed By: #### ABG #### Point of Care testing ,Comprehensive Metabolic Panelon 70-44-5378Liiudsj [Mass/Vol]3.6 g/dLNormal 3.5-5.7The [facility] Physician GroupComment on above:Performed By: #### PHOS, CMP ####[place] [id number] [facility] Albumin/Globulin [Mass ratio]1.3 {ratio}NormalThe [facility] Comment on above:Performed By: #### PHOBarbara, CMP ####[address] [address] USAALP [Catalytic activity/Vol]72 U/L Tjrsiv14-980Ezt [facility] Physician [facility]oxiComment on above:Performed By: #### PHOBarbara, CMP ####[address] [address] USAALT [Catalytic activity/Vol]67 U/LHigh7-52The [facility] Physician [facility] Comment on above:Performed By: #### PHOBarbara, CMP ####[address] [address] USAAnion gap [Moles/Vol]12.5 mmol/LNormal 6.0-15.0The [facility] Physician GroupComment on above:Performed By: #### PHOS, CMP ####[address] [address] USAAST [Catalytic activity/Vol]41 U/IUtpm47-35Gaf [facility]ician [facility]iComment on above:Performed By: #### PHOS, CMP ####[address] [address] USABilirubin [Mass/Vol]0.4 mg/dLNormal0.3-1.0The [facility] Physician GroupComment on above:Performed By: #### PHOS, CMP ####[address] [address] USACalcium [Mass/Vol]8.3 mg/dLLow8.6-10.3The [facility] Physician GroupComment on above: Performed By: #### LUCY, CMP ####[place] [address] USAChloride [Moles/Vol]101 mmol/MPrauhb80-844Emx [facility] Physician GroupComment on above:Performed By: #### LUCY, CMP ####[place] [address] USACO2 [Moles/Vol]29.2 mmol/BVqtrwa70.0-31.0The [facility] Physician GroupComment on above:Performed By: #### LUCY, CMP ####[place] [address] USACreatinine [Mass/Vol]0.65 mg/dLNormal0.60-1.20ThPortneuf Medical Center Physician GroupComment on above:Performed By: #### LUCY, CMP ####[place] [address] [place] Creatinine Clr Calc Racxojdg51.88NormOrlando Health [facility] Physician [facility]oxiComment on above:Performed By: #### LUCY, CMP ####[place] [address] USAGFR/1.73 sq M.predicted MDRD (S/P/Bld) [Vol rate/Area]mL/min/{1.73_m2}NormalThe [facility] Physician GroupComment on above: Performed By: #### LUCY, CMP ####[place] [id number] USAGlobulin (S) [Mass/Vol]2.7 g/dLNormOrlando Health [facility] Physician [facility]iComment on above:Performed By: #### LUCY, CMP ####[place] [id number] USAGlucose [Mass/Vol]123 mg/yIUgjy18-488Wle [facility] Physician GroupComment on above:Result Comment: Random Glucose Reference Range is dependent on time and content of last meal. Glucose of more than 200 mg/dL in a nonstressed, ambulatory subject supports the diagnosis of Diabetes Mellitus. ADA recommended reference rangePerformed By: #### PHOS, CMP ####[place] [address] [place] [address] USAPotassium [Moles/Vol] 3.7 mmol/LNormal3.5-5.1The [facility] Physician [facility]iComment on above:Performed By: #### PHOS, CMP ####[place] [id number] USAProtein [Mass/Vol]6.3 g/dLLow6.4-8.9The [facility] Physician [facility] Comment on above:Performed By: #### PHOS, CMP ####[place] [address] USASodium [Moles/Vol]139 mmol/LNormal 136-145The [facility] Physician GroupComment on above:Performed By: #### PHOS, CMP ####[place] [id number] [place] Urea nitrogen [Mass/Vol]16 mg/dLNormal7-25The [facility] Physician GroupComment on above:Performed By: #### PHOS, CMP ####[place] [id number] USAGlucose Poct Glucometerson 23-91-5382Duoyckl8 Glu2: Cleaned MeterNoCleveland Clinic Lutheran HospitalComment on above:Result Comment: PERFORMED BY: [facility] [address] [place] [id number] PATHOLOGIST DIGITAL PRINTER OPERATOR MANDY ACUÑA M.D.Performed By: #### GLULS #### Point of Care testing ,Glucose [Mass/Vol]114 mg/dLShorePoint Health Punta Gorda Physician [facility]oxiComment on above: Result Comment: Random Glucose Reference Range is dependent on time and content of last meal. Glucose of more than 200 mg/dL in a nonstressed, ambulatory subject supports the diagnosis of Diabetes Mellitus.Performed By: #### GLULS #### Point of Care testing ,Glucose [Mass/Vol]107 mg/dLShorePoint Health Punta Gorda Physician GroupComment on above: Result Comment: Random Glucose Reference Range is dependent on time and content of last meal. Glucose of more than 200 mg/dL in a nonstressed, ambulatory subject supports the diagnosis of Diabetes Mellitus. PERFORMED BY: [place] [id number] PATHOLOGIST DIGITAL PRINTER OPERATOR MANDY ACUÑA M.D.Performed By: #### GLULS ####Point of Care testing, Glucose [Mass/Vol]177 mg/dLShorePoint Health Punta Gorda Physician GroupComment on above: Result Comment: Random Glucose Reference Range is dependent on time and content of last meal. Glucose of more than 200 mg/dL in a nonstressed, ambulatory subject supports the diagnosis of Diabetes Mellitus. PERFORMED BY: [place] [id number] PATHOLOGIST DIGITAL PRINTER OPERATOR MANDY ACUÑA M.D.Performed By: #### GLULS #### Point of Care testing ,Glucose [Mass/Vol]150 mg/dLNoReplaced by [facility] Physician GroupComment on above: Result Comment: Random Glucose Reference Range is dependent on time and content of last meal. Glucose of more than 200 mg/dL in a nonstressed, ambulatory subject supports the diagnosis of Diabetes Mellitus. PERFORMED BY: [place] [id number] PATHOLOGIST DIGITAL PRINTER OPERATOR MANDY ACUÑA M.D.Performed By: #### GLULS #### Point of Care testing ,Phosphate [Mass/volume] in Serum or PlasmaOrdered By: Daniel Garza on 12-12-2024 Phosphate [Mass/Vol]Phosphate [Mass/volume] in Serum or PlasmaLow2.5-4.5 [facility]S HospitalPhosphoruson 51-33-2643Xgwuaodbj [Mass/Vol]2.0 mg/dLLow2.5-4.5The [facility] Physician GroupComment on above:Result Comment: PERFORMED BY: [place] [id number] PATHOLOGIST DIGITAL PRINTER OPERATOR MANDY ACUÑA M.D.Performed By: #### PHOS, CMP ####[facility] [place] [address] USAArterial Blood Gason 54-51-7019WYV Base Excess-3.0 mmol/LNormal-3.0-3.0[facility] Comment on above:Performed By: #### ABG #### Point of Care testing ,ABG Frac Inspired O255 %NormalThe [facility] Physician GroupComment on above: Performed By: #### ABG #### Point of Care testing ,ABG Oxygen Content6.9 mmol/LNormal6.6-9.7The [facility] Physician GroupComment on above:Performed By: #### ABG #### Point of Care testing ,ABG Oxygen Mtejqxjvhz94.1 %Lwhnfa17.0-100.0The [facility] Physician GroupComment on above:Performed By: #### ABG #### Point of Care testing ,ABG HZI785.3 mm[Hg]Iugqjp00.0-45.0The [facility] Physician GroupComment on above:Performed By: #### ABG #### Point of Care testing ,ABG PEEP8 nhW69BwezvoBgz [facility] Physician GroupComment on above:Performed By: #### ABG #### Point of Care testing ,ABG PH7.00Vbkgcr8.35-7.45The [facility] Physician GroupComment on above: Performed By: #### ABG #### Point of Care testing ,ABG MU1474.0 mm[Hg]Off scale high80.0-100.0The [facility] Physician GroupComment on above:Performed By: #### ABG #### Point of Care testing ,ABG TV420 mLNormalThe [facility] Physician GroupComment on above:Performed By: #### ABG #### Point of Care testing ,Respiratory CriticalNormOrlando Health Orlando Regional Medical Center Physician GroupComment on above:Result Comment: Critical Value called on: 12/11/2024 at 04:26 PERFORMED BY: [facility] [address] [place] [address] PATHOLOGIST DIGITAL PRINTER OPERATOR MANDY ACUÑA M.D.Performed By: #### ABG #### Point of Care testing ,Set Respiratory Lssz83CzfxbwVjjShorePoint Health Punta Gorda Physician GroupComment on above: Performed By: #### ABG #### Point of Care testing ,VBG Draw SiteLeft RadialShorePoint Health Punta Gorda Physician GroupComment on above: Performed By: #### ABG #### Point of Care testing ,Ventilator ModeACShorePoint Health Punta Gorda Physician GroupComment on above:Performed By: #### ABG #### Point of Care testing ,Arterial Blood GasOrdered By: Daniel Garza on 83-00-0661TL7 [Moles/Vol]23.4 mmol/VWpamzo44.0-27.0[facility]S HospitalComment on above:Performed By: #### ABG #### Point of Care testing ,HCO3 (Bld) [Moles/Vol]22.2 mmol/LLow23.0-29.0[facility] Comment on above:Performed By: #### ABG #### Point of Care testing ,Complete Blood Count Auto Diffon 80-11-1972Pdfezfmza (Bld) [#/Vol]0.1 10*3/uL Normal0.0-0.2The [facility] Physician GroupComment on above:Result Comment: PERFORMED BY: [facility] [address] [place] [address] PATHOLOGIST DIGITAL PRINTER OPERATOR MANDY ACUÑA M.D.Performed By: #### GLULS #### Point of Care testing ,Basophils/100 WBC (Bld)0.4 %Normal.The [facility] Physician GroupComment on above:Performed By: #### GLULS #### Point of Care testing ,Eosinophils (Bld) [#/Vol]0.0 10*3/uLNormal0.0-0.45The [facility] Comment on above:Performed By: #### GLULS #### Point of Care testing ,Eosinophils/100 WBC (Bld)0.0 %Normal.The [facility] Physician GroupComment on above:Performed By: #### GLULS #### Point of Care testing ,Erythrocyte distribution width (RBC) [Ratio]16.3 %High11.9-15.3The [facility] Physician GroupComment on above:Performed By: #### GLULS #### Point of Care testing ,Hematocrit (Bld) [Volume fraction]32.9 %Low34.0-46.4The [facility] Physician GroupComment on above:Performed By: #### GLULS #### Point of Care testing ,Hemoglobin (Bld) [Mass/Vol]10.8 g/dLLow11.8-15.4[facility] Comment on above:Performed By: #### GLULS #### Point of Care testing ,Lymphocytes (Bld) [#/Vol]0.3 10*3/uLLow1.00-4.8[facility] Comment on above:Performed By: #### GLULS #### Point of Care testing ,Lymphocytes/100 WBC (Bld)1.7 %Normal.The [facility] Physician GroupComment on above:Performed By: #### GLULS #### Point of Care testing ,MCH (RBC) [Entitic mass]28.9 tpGusjcb56.7-34.3[facility] Comment on above:Performed By: #### GLULS #### Point of Care testing ,MCV (RBC) [Entitic vol]87.9 mSUjgnyg02-827Nee [facility] Physician GroupComment on above:Performed By: #### GLULS #### Point of Care testing ,Mean Corpuscular HGB Conc32.9 g/aTOpeqvm10.0-35.0The [facility] Comment on above:Performed By: #### GLULS #### Point of Care testing ,Monocytes (Bld) [#/Vol]0.5 10*3/uLNormal0.0-0.8[facility] Comment on above:Performed By: #### GLULS #### Point of Care testing ,Monocytes/100 WBC (Bld)3.4 %Normal.The [facility] Physician GroupComment on above:Performed By: #### GLULS #### Point of Care testing ,Neutrophils (Bld) [#/Vol]14.5 10*3/uLHigh1.8-7.7[facility] Comment on above:Performed By: #### GLULS #### Point of Care testing ,Neutrophils/100 WBC (Bld)94.5 %Normal.The [facility] Physician GroupComment on above:Performed By: #### GLULS #### Point of Care testing ,NRBC%0.0 /100{WBC}Normal0-0.5The [facility] Physician GroupComment on above: Performed By: #### GLULS #### Point of Care testing ,Platelet mean volume (Bld) [Entitic vol]7.2 fLNormal6.3-10.7The [facility] Physician GroupComment on above:Performed By: #### GLULS #### Point of Care testing ,Platelets (Bld) [#/Vol]244 10*3/zTOwygdl290-717Oli [facility] Comment on above:Performed By: #### GLULS #### Point of Care testing ,RBC (Bld) [#/Vol]3.74 10*6/uLNormal3.60-5.00The [facility] Comment on above:Performed By: #### GLULS #### Point of Care testing ,WBC (Bld) [#/Vol]15.4 10*3/uLHigh3.8-11.6The [facility] Physician GroupComment on above:Performed By: #### GLULS #### Point of Care testing ,Comprehensive Metabolic Panelon 76-34-9690Cfvugdr [Mass/Vol]3.4 g/dLLow3.5-5.7 The [facility] Physician GroupComment on above:Performed By: #### GLULS #### Point of Care testing ,Albumin/Globulin [Mass ratio]1.6 {ratio}NormalThe [facility] Comment on above:Performed By: #### GLULS #### Point of Care testing ,ALP [Catalytic activity/Vol]69 U/GXdyesx32-538Aes [facility] Comment on above:Performed By: #### GLULS #### Point of Care testing ,ALT [Catalytic activity/Vol]76 U/LHigh7-52The [facility] Physician GroupComment on above:Performed By: #### GLULS #### Point of Care testing ,Anion gap [Moles/Vol]11.6 mmol/LNormal6.0-15.0[facility] Physician [facility] Comment on above:Performed By: #### GLULS #### Point of Care testing ,AST [Catalytic activity/Vol]49 U/CBijy46-69[facility] Physician GroupComment on above:Performed By: #### GLULS #### Point of Care testing ,Bilirubin [Mass/Vol]0.4 mg/dLNormal0.3-1.0The [facility] Physician GroupComment on above:Performed By: #### GLULS #### Point of Care testing ,Calcium [Mass/Vol]8.1 mg/dLLow8.6-10.3The [facility] Physician GroupComment on above:Performed By: #### GLULS #### Point of Care testing ,Chloride [Moles/Vol]105 mmol/KXvqwhm95-593Ejv [facility] Physician GroupComment on above:Performed By: #### GLULS #### Point of Care testing ,CO2 [Moles/Vol]23.7 mmol/BCkcbkh73.0-31.0The [facility] Physician GroupComment on above:Performed By: #### GLULS #### Point of Care testing ,Creatinine [Mass/Vol]0.74 mg/dLNormal0.60-1.20ThPortneuf Medical Center Physician [facility] Comment on above:Performed By: #### GLULS #### Point of Care testing ,Creatinine Clr Calc Ogpfumza19.88NoReplaced by [facility] Physician GroupComment on above:Performed By: #### GLULS #### Point of Care testing ,GFR/1.73 sq M.predicted MDRD (S/P/Bld) [Vol rate/Area]mL/min/{1.73_m2}NormalSarasota Memorial Hospital Physician GroupComment on above:Performed By: #### GLULS #### Point of Care testing ,Globulin (S) [Mass/Vol]2.1 g/dLShorePoint Health Punta Gorda Physician GroupComment on above:Performed By: #### GLULS #### Point of Care testing ,Glucose [Mass/Vol]134 mg/lHXrmh81-523Afi [facility] Physician GroupComment on above:Result Comment: Random Glucose Reference Range is dependent on time and content of last meal. Glucose of more than 200 mg/dL in a nonstressed, ambulatory subject supports the diagnosis of Diabetes Mellitus. ADA recommended reference rangePerformed By: #### GLULS #### Point of Care testing ,Potassium [Moles/Vol]4.3 mmol/LNormal3.5-5.1[facility] Comment on above:Performed By: #### GLULS #### Point of Care testing ,Protein [Mass/Vol]5.5 g/dLLow6.4-8.9The [facility] Physician GroupComment on above:Performed By: #### GLULS #### Point of Care testing ,Sodium [Moles/Vol]136 mmol/LSignificant change rbpq922-712Utb [facility] Physician GroupComment on above:Performed By: #### GLULS #### Point of Care testing ,Urea nitrogen [Mass/Vol]21 mg/dLNormal7-e [facility]ician GroupComment on above:Performed By: #### GLULS #### Point of Care testing ,Glucose Poct Glucometerson 54-82-8373Eqdfmrv [Mass/Vol]132 mg/dLNoReplaced by [facility] Physician [facility]iComment on above:Result Comment: Random Glucose Reference Range is dependent on time and content of last meal. Glucose of more than 200 mg/dL in a nonstressed, ambulatory subject supports the diagnosis of Diabetes Mellitus. PERFORMED BY: [address] [place] [address] PATHOLOGIST DIGITAL PRINTER OPERATOR MANDY ACUÑA M.D.Performed By: #### GLULS #### Point of Care testing ,Glucose [Mass/Vol]123 mg/dLShorePoint Health Punta Gorda Physician GroupComment on above: Result Comment: Random Glucose Reference Range is dependent on time and content of last meal. Glucose of more than 200 mg/dL in a nonstressed, ambulatory subject supports the diagnosis of Diabetes Mellitus. PERFORMED BY: [facility] [address] [place] [place] [address] PATHOLOGIST DIGITAL PRINTER OPERATOR MANDY ACUÑA M.D.Performed By: #### ABG #### Point of Care testing ,Magnesiumon 55-17-4922Qskwxohem [Mass/Vol]2.3 mg/dLNormal1.9-2.7The [facility] Physician GroupComment on above:Result Comment: PERFORMED BY: [place] [address] [place] [address] PATHOLOGIST DIGITAL PRINTER OPERATOR MANDY ACUÑA M.D.Performed By: #### GLULS #### Point of Care testing ,Magnesium [Mass/volume] in Serum or PlasmaOrdered By: Daniel Garza on 12-11-2024 Magnesium [Mass/Vol]Magnesium [Mass/volume] in Serum or Plasma1.9-2.7FFlower HospitalNo Panel InformationOrdered By: Daniel Garza on 12-11-2024 Arterial Blood Base Excess-3.0 mmol/L-3.0-3.0[facility] Arterial Blood Oxygen Content6.9 mmol/L6.6-9.7FFlower Hospital Arterial Blood Oxygen Kgtamcqqup04.1 %95.0-100.0[facility] HospitalArterial Blood Partial Pressure CO240.3 mm[Hg]35.0-45.0[facility]S HospitalArterial Blood Partial Pressure O2126.0 mm[Hg]Critically high 80.0-100.0[facility] HospitalArterial Blood pH7.367.35-7.45 [facility]S HospitalBlood Gas Critical ValueSee commentAkron Children'S HospitalComment on above:Critical Value called on: 12/11/2024 at 04:26Blood Gas PEEP8 wsS8QRrqftvobuAkron Children'S HospitalBlood Gas Sample Site Left radialAkron Children'S HospitalBlood Gas Set Respiration Rate18 [facility] HospitalBlood Gas Tidal Sgnjid090 mLAkron Children'S HospitalBlood Gas Ventilator ModeAcAkron Children'S HospitalFiO255 %[facility]S HospitalPhosphoruson 76-23-0302Mtzueqqsc [Mass/Vol] 2.6 mg/dLNormal2.5-4.5The [facility] Physician GroupComment on above:Performed By: #### GLULS #### Point of Care testing ,Triglyceride [Mass/volume] in Serum or PlasmaOrdered By: Soco Beasley on 48-07-3609Zdcxpyuntfry [Mass/Vol]Triglyceride [Mass/volume] in Serum or Plasma Viyy56-972RcvxrlhsxAkron Children'S HospitalComment on above:TRIG ATP III CLASSIFICATIONTRIG less than 150 mg/dL NormalTRIG 150-199 mg/dL Borderline highTRIG 200-500 mg/dL High TRIG greater than 500 mg/dL Very highStandard traceable to the Center for Disease Conrtrol and Prevention (CDC) test method. Triglycerideson 65-55-5144Oueomtkvbwmw [Mass/Vol]158 mg/fBLmjq94-201Gos [facility] Physician GroupComment on above:Result Comment: TRIG ATP III CLASSIFICATION TRIG less than 150 mg/dL Normal TRIG 150-199 mg/dL Borderline high TRIG 200-500 mg/dL High TRIG greater than 500 mg/dL Very high Standard traceable to the Center for Disease Conrtrol and Prevention (CDC) test method. PERFORMED BY: [place] [address] PATHOLOGIST DIGITAL PRINTER OPERATOR MANDY ACUÑA M.D.Performed By: #### TRIG #### [place] [address] USAX-ray reportOrdered By: Ryan Ugalde on 39-29-2809Mxena reportOHIOHEALTH NELSONVILLE [place] [address] XRay Report Signed Patient: Julian Montaño MR#: [id number] : 1955 Acct:[id number] Age/Sex: 69 / F ADM Date: 5 Loc: Room: [address] [place] [address] Type: ADM IN Attending Dr: Daniel Garza [...] Jr, DO 12/11/24831 Signed By: 12/11/24 0833 [facility]S HospitalXR chest 1V portableon 44-25-6206RB chest 1V portableOHIOHEALTH NELSONVILLE HEALTH CENTER Main [place] [address] [place] [address] XRay Report Signed Patient: Julian Montaño MR#: [id number] 25 : 1955 Acct:[id number] Age/Sex: 69 / F ADM Date: 12/09/24 Loc: Room: [address] [place] [address] Type: ADM IN Attending Dr: Daniel Garza [...] Ugalde Jr, DO 12/11/24831 Signed By: 12/11/24 33ShorePoint Health [facility] Physician GroupAmphetamine Screen Ql (U)Ordered By: Soco Beasley on 44-20-4609Kqzguukpsjso Ql (U)Amphetamines screenNegative [facility] CenterArterial Blood Gason 55-47-6776EZD Base Excess- 2.9 mmol/LNormal-3.0-3.0The [facility] Physician GroupComment on above:Performed By: #### ABG #### Point of Care testing ,ABG Frac Inspired O250 %NormalThe [facility] Physician GroupComment on above: Performed By: #### ABG #### Point of Care testing ,ABG Oxygen Content6.8 mmol/LNormal6.6-9.7The [facility] Physician GroupComment on above:Performed By: #### ABG #### Point of Care testing ,ABG Oxygen Quyjnwasrh18.3 %Aonrcc27.0-100.0The [facility] Physician GroupComment on above:Performed By: #### ABG #### Point of Care testing ,ABG PNV744.7 mm[Hg]Sntwtt79.0-45.0The [facility] Physician GroupComment on above:Performed By: #### ABG #### Point of Care testing ,ABG PEEP5 oeN19JswtymQda [facility]ician GroupComment on above:Performed By: #### ABG #### Point of Care testing ,ABG PH7.34Low7.35-7.45The [facility]ician [facility]iComment on above:Performed By: #### ABG #### Point of Care testing ,ABG PO299.2 mm[Hg]Zjfqee78.0-100.0The [facility] Physician GroupComment on above:Performed By: #### ABG #### Point of Care testing ,ABG TV450 mLNormalThe [facility] Physician GroupComment on above:Performed By: #### ABG #### Point of Care testing ,CO2 [Moles/Vol]24.0 mmol/QOocsct77.0-27.0The [facility] Physician GroupComment on above:Performed By: #### ABG #### Point of Care testing ,HCO3 (Bld) [Moles/Vol]22.7 mmol/LLow23.0-29.0The [facility] Comment on above:Performed By: #### ABG #### Point of Care testing ,Respiratory CriticalNormalThe [facility] Physician GroupComment on above:Result Comment: Critical Value called on: 12/10/2024 at 06:05 PERFORMED BY: [facility] [place] [address] PATHOLOGIST DIGITAL PRINTER OPERATOR MANDY ACUÑA M.D.Performed By: #### ABG #### Point of Care testing ,Set Respiratory Zift33LkhwpoRssReplaced by [facility] Physician GroupComment on above: Performed By: #### ABG #### Point of Care testing ,VBG Draw SiteLeft RadialShorePoint Health Punta Gorda Physician GroupComment on above: Performed By: #### ABG #### Point of Care testing ,Ventilator ModeACShorePoint Health Punta Gorda Physician GroupComment on above:Performed By: #### ABG #### Point of Care testing ,ABG Base Excess-4.9 mmol/LLow-3.0-3.0The [facility] Physician GroupComment on above:Performed By: #### GLULS #### Point of Care testing ,ABG Frac Inspired O260 %NormalThe [facility] Physician GroupComment on above: Performed By: #### GLULS #### Point of Care testing ,ABG Oxygen Content6.8 mmol/LNormal6.6-9.7The [facility] Physician GroupComment on above:Performed By: #### GLULS #### Point of Care testing ,ABG Oxygen Iurtukwgtj06.2 %Ymgvxz01.0-100.0The [facility] Physician GroupComment on above:Performed By: #### GLULS #### Point of Care testing ,ABG EMQ709.5 mm[Hg]High35.0-45.0The [facility] Physician GroupComment on above: Performed By: #### GLULS #### Point of Care testing ,ABG PEEP5 aiU01KxmmspUzjShorePoint Health Punta Gorda Physician GroupComment on above:Performed By: #### GLULS #### Point of Care testing ,ABG PH7.28Low7.35-7.45The [facility] Physician GroupComment on above:Performed By: #### GLULS #### Point of Care testing ,ABG FU9875.9 mm[Hg]Off scale high80.0-100.0The [facility] Physician GroupComment on above:Performed By: #### GLULS #### Point of Care testing ,ABG TV500 mLNormalThe [facility] Physician GroupComment on above:Performed By: #### GLULS #### Point of Care testing ,CO2 [Moles/Vol]23.3 mmol/MGinjpb99.0-27.0The [facility] Physician GroupComment on above:Performed By: #### GLULS #### Point of Care testing ,HCO3 (Bld) [Moles/Vol]21.8 mmol/LLow23.0-29.0The [facility] Comment on above:Performed By: #### GLULS #### Point of Care testing ,Respiratory CriticalShorePoint Health Punta Gorda Physician GroupComment on above:Result Comment: Critical Value called on: 12/10/2024 at 00:12 PERFORMED BY: [facility] [place] [address] PATHOLOGIST DIGITAL PRINTER OPERATOR MANDY ACUÑA M.D.Performed By: #### GLULS #### Point of Care testing ,Set Respiratory Qfon18MdtxjtLhsShorePoint Health Punta Gorda Physician GroupComment on above: Performed By: #### GLULS #### Point of Care testing ,VBG Draw SiteRight RadialShorePoint Health Punta Gorda Physician GroupComment on above: Performed By: #### GLULS #### Point of Care testing ,Ventilator ModeACShorePoint Health Punta Gorda Physician GroupComment on above:Performed By: #### GLULS #### Point of Care testing ,Barbiturates [Presence] in Urine by Screen methodOrdered By: Soco Beasley on 47-03-5092Fsjuopdxfssj Screen Ql (U)Barbiturates [Presence] in Urine by Screen methodNegMercy Health Springfield Regional Medical CenterBenzodiazepines Screen Ql (U) Ordered By: Soco Beasley on 52-59-6742Xrpvyzrvnzbvlls Ql (U)Benzodiazepines [Presence] in Urine by Screen methodHighNegMercy Health Springfield Regional Medical CenterBenzoylecgonine [Presence] in Urine by Screen methodOrdered By: Soco Beasley on 74-51-2354Maqdzkfajcerllo Screen Ql (U)Benzoylecgonine [Presence] in Urine by Screen methodNegativeAkron Children'S HospitalCannabinoids [Presence] in Urine by Screen methodOrdered By: Soco Beasley on 12-10-2024 Cannabinoids Screen Ql (U)Cannabinoids [Presence] in Urine by Screen method NegativeAkron Children'S HospitalComment on above:These are unconfirmed results and should not be used for legal purposes. Drug Cut-Off Concentration: AMPH 1000 ng/mL MICHAEL 200 ng/mL JAVAN 200 ng/mL COCM 300 ng/mL OP 300 ng/mL PCP 25 ng/mL THC 20 ng/mLComplete Blood Count Auto Diffon 06-91-0295Pwqzcecvk (Bld) [#/Vol]0.1 10*3/uLNormal0.0-0.2The [facility] Physician GroupComment on above: Result Comment: PERFORMED BY: [facility] [address] [place] [address] PATHOLOGIST DIGITAL PRINTER OPERATOR MANDY ACUÑA M.D.Performed By: #### ABG #### Point of Care testing ,Basophils/100 WBC (Bld)0.5 %Normal.The [facility] Physician GroupComment on above:Performed By: #### ABG #### Point of Care testing ,Eosinophils (Bld) [#/Vol]0.0 10*3/uLNormal0.0-0.45The [facility] Comment on above:Performed By: #### ABG #### Point of Care testing ,Eosinophils/100 WBC (Bld)0.0 %Normal.The [facility] Physician GroupComment on above:Performed By: #### ABG #### Point of Care testing ,Erythrocyte distribution width (RBC) [Ratio]15.5 %High11.9-15.3The [facility] Physician GroupComment on above:Performed By: #### ABG #### Point of Care testing ,Hematocrit (Bld) [Volume fraction]31.0 %Low34.0-46.4The [facility] Physician GroupComment on above:Performed By: #### ABG #### Point of Care testing ,Hemoglobin (Bld) [Mass/Vol]10.1 g/dLLow11.8-15.4The [facility] Comment on above:Performed By: #### ABG #### Point of Care testing ,Lymphocytes (Bld) [#/Vol]0.2 10*3/uLLow1.00-4.8The [facility] Comment on above:Performed By: #### ABG #### Point of Care testing ,Lymphocytes/100 WBC (Bld)1.2 %Normal.The [facility] Physician GroupComment on above:Performed By: #### ABG #### Point of Care testing ,MCH (RBC) [Entitic mass]28.4 tzZhocpf03.7-34.3The [facility] Comment on above:Performed By: #### ABG #### Point of Care testing ,MCV (RBC) [Entitic vol]86.7 yUQzekyh58-091Eqo [facility] Physician GroupComment on above:Performed By: #### ABG #### Point of Care testing ,Mean Corpuscular HGB Conc32.7 g/sHVojksx56.0-35.0The [facility] Comment on above:Performed By: #### ABG #### Point of Care testing ,Monocytes (Bld) [#/Vol]0.5 10*3/uLNormal0.0-0.8The [facility] Comment on above:Performed By: #### ABG #### Point of Care testing ,Monocytes/100 WBC (Bld)3.1 %Normal.The [facility] Physician GroupComment on above:Performed By: #### ABG #### Point of Care testing ,Neutrophils (Bld) [#/Vol]14.4 10*3/uLHigh1.8-7.7The [facility] Physician [facility] Comment on above:Performed By: #### ABG #### Point of Care testing ,Neutrophils/100 WBC (Bld)95.2 %Normal.The [facility] Physician GroupComment on above:Performed By: #### ABG #### Point of Care testing ,NRBC%0.0 /100{WBC}Normal0-0.5The [facility] Physician GroupComment on above: Performed By: #### ABG #### Point of Care testing ,Platelet mean volume (Bld) [Entitic vol]7.0 fLNormal6.3-10.7The [facility] Physician GroupComment on above:Performed By: #### ABG #### Point of Care testing ,Platelets (Bld) [#/Vol]236 10*3/wNPbsxqw085-846Vte [facility] Physician [facility] Comment on above:Performed By: #### ABG #### Point of Care testing ,RBC (Bld) [#/Vol]3.57 10*6/uLLow3.60-5.00The [facility] Physician GroupComment on above:Performed By: #### ABG #### Point of Care testing ,WBC (Bld) [#/Vol]15.2 10*3/uLHigh3.8-11.6The [facility] Physician GroupComment on above:Performed By: #### ABG #### Point of Care testing ,Comprehensive Metabolic Panelon 59-57-2847Jpwgyhm [Mass/Vol]3.4 g/dLLow3.5-5.7 The [facility] Physician GroupComment on above:Performed By: #### ABG #### Point of Care testing ,Albumin/Globulin [Mass ratio]1.5 {ratio}NormalThe [facility] Physician [facility] Comment on above:Performed By: #### ABG #### Point of Care testing ,ALP [Catalytic activity/Vol]69 U/TAbhsll04-902Qvw [facility] Comment on above:Performed By: #### ABG #### Point of Care testing ,ALT [Catalytic activity/Vol]71 U/LHigh7-52The [facility] Physician GroupComment on above:Performed By: #### ABG #### Point of Care testing ,Anion gap [Moles/Vol]10.3 mmol/LNormal6.0-15.0The [facility] Comment on above:Performed By: #### ABG #### Point of Care testing ,AST [Catalytic activity/Vol]50 U/IQbwp15-44Uul [facility] GroupComment on above:Performed By: #### ABG #### Point of Care testing ,Bilirubin [Mass/Vol]0.4 mg/dLNormal0.3-1.0[facility]ician GroupComment on above:Performed By: #### ABG #### Point of Care testing ,Calcium [Mass/Vol]7.0 mg/dLLow8.6-10.3The [facility] GroupComment on above:Performed By: #### ABG #### Point of Care testing ,Chloride [Moles/Vol]101 mmol/GXtsfaf42-638Hoj [facility] GroupComment on above:Performed By: #### ABG #### Point of Care testing ,CO2 [Moles/Vol]22.0 mmol/XVpemyk99.0-31.0The [facility] GroupComment on above:Performed By: #### ABG #### Point of Care testing ,Creatinine [Mass/Vol]0.64 mg/dLNormal0.60-1.20The [facility] Comment on above:Performed By: #### ABG #### Point of Care testing ,Creatinine Clr Calc Xwijinzl78.14NoCleveland Clinic Lutheran HospitalComment on above:Performed By: #### ABG #### Point of Care testing ,GFR/1.73 sq M.predicted MDRD (S/P/Bld) [Vol rate/Area]mL/min/{1.73_m2}NormalThe [facility]ician GroupComment on above:Performed By: #### ABG #### Point of Care testing ,Globulin (S) [Mass/Vol]2.2 g/dLNoCleveland Clinic Lutheran HospitalComment on above:Performed By: #### ABG #### Point of Care testing ,Glucose [Mass/Vol]151 mg/jWLsxt16-721Vaq [facility] GroupComment on above:Result Comment: Random Glucose Reference Range is dependent on time and content of last meal. Glucose of more than 200 mg/dL in a nonstressed, ambulatory subject supports the diagnosis of Diabetes Mellitus. ADA recommended reference rangePerformed By: #### ABG #### Point of Care testing ,Potassium [Moles/Vol]3.3 mmol/LLow3.5-5.1The [facility] GroupComment on above:Performed By: #### ABG #### Point of Care testing ,Protein [Mass/Vol]5.6 g/dLLow6.4-8.9The [facility] GroupComment on above:Performed By: #### ABG #### Point of Care testing ,Sodium [Moles/Vol]130 mmol/HJlx222-907Uyg [facility] GroupComment on above:Performed By: #### ABG #### Point of Care testing ,Urea nitrogen [Mass/Vol]14 mg/dLNormal7-25The [facility] GroupComment on above:Performed By: #### ABG #### Point of Care testing ,Drug Screen,Urineon 89-65-6047Wfngrduywbz Screen,UrineNegativeNormalNegativeThe [facility]ician GroupComment on above:Performed By: #### URDS #### [place] [address] USABarbiturate Screen,UrineNegativeNormalNegativeThe [facility]ician GroupComment on above:Performed By: #### URDS #### [place] [address] USABenzodiazepines Screen,UrinePositiveHighNegativeThe [facility] Physician GroupComment on above:Performed By: #### URDS #### [place] [address] USACannabinoid Screen,UrineNegativeNormalNegativeThe [facility]ician GroupComment on above:Result Comment: These are unconfirmed results and should not be used for legal purposes. Drug Cut-Off Concentration: AMPH 1000 ng/mL MICHAEL 200 ng/mL JAVAN 200 ng/mL COCM 300 ng/mL OP 300 ng/mL PCP 25 ng/mL THC 20 ng/mL PERFORMED BY: [place] [address] PATHOLOGIST DIGITAL PRINTER OPERATOR MANDY ACUÑA M.D.Performed By: #### URDS #### [facility] [address] [place] [address] USACocaine Screen,UrineNegativeNormalNegativeThe [facility] Physician GroupComment on above:Performed By: #### URDS #### [facility] [address] [place] [address] USAOpiate Screen,UrinePositiveHighNegativeThe [facility]ician GroupComment on above:Performed By: #### URDS #### [facility] [address] [place] [address] USAPhencyclidine Screen,UrineNegativeNormalNegativeThe [facility]ician GroupComment on above:Performed By: #### URDS #### [place] [address] USAECH echo transthoracicon 12-17-0891ABJ echo transthoracic [facility] Main [place] [address] [place] [address] Echocardiogram Signed Patient: Julian Montaño MR#: [id number] [birth year] : 1955 Acct:[id number] Age/Sex: 69 / F ADM Date: 12/09/24 Loc: Room: [address] [place] [address] Type: ADM IN Attending Dr: Daniel Garza [...] Signed By: Gildardo Pastor MD 12/10/24 1712NormalThe [facility]iGlucose Poct Glucometerson 82-12-3076Cjyeudg [Mass/Vol]135 mg/dL NormalThe [facility]ician GroupComment on above:Result Comment: Random Glucose Reference Range is dependent on time and content of last meal. Glucose of more than 200 mg/dL in a nonstressed, ambulatory subject supports the diagnosis of Diabetes Mellitus. PERFORMED BY: [place] [address] PATHOLOGIST DIGITAL PRINTER OPERATOR MANDY ACUÑA M.D.Performed By: #### GLULS #### Point of Care testing ,Magnesiumon 62-05-0072Xacsqdxyo [Mass/Vol]1.7 mg/dLLow1.9-2.7The [facility]ician GroupComment on above:Result Comment: PERFORMED BY: [place] [address] PATHOLOGIST DIGITAL PRINTER OPERATOR MANDY ACUÑA M.D.Performed By: #### URDS #### [place] [address] USAOpiates [Presence] in Urine by Screen methodOrdered By: Soco Beasley on 81-23-7813Olwpocw Screen Ql (U)Opiates [Presence] in Urine by Screen methodHighNegMercy Health Springfield Regional Medical CenterPhencyclidine Screen Ql (U)Ordered By: Soco Beasley on 82-99-4100Cjhchjpconaql Ql (U)Phencyclidine [Presence] in Urine by Screen methodNegMercy Health Springfield Regional Medical Center Troponin I High Sensitivityon 74-66-6996Krpjxocz I High Cnlnvndoywg6369Hhc scale high0-15The [facility]ician GroupComment on above:Result Comment: Critical Result : Called to and read back by: VIOLA KAY at: 12/10/2024 07:21:46 by:CELESTINA The Troponin units of report have been changed to meet the Chest Pain Accreditation requirement, element EC5.M1l2. Troponin units are changed from pg/ml to ng/L. Also, the decimal is removed and results are in whole numbers. PERFORMED BY: [place] [id number] PATHOLOGIST DIGITAL PRINTER OPERATOR MANDY ACUÑA M.D.Performed By: #### GLULS #### Point of Care testing ,Troponin I.cardiac [Mass/volume] in Serum or Plasma by Detection limit <= 0.01 ng/Ordered By: Soco Beasley on 45-44-4956Xtxqkttf I.cardiac DL <= 0.01 ng/mL [Mass/Vol]Troponin I.cardiac [Mass/volume] in Serum or Plasma by Detection limit <= 0.01 ng/Critically high0-15[facility] HospitalComment on above:Critical Result : Called to and read back by: VIOLA KAY at: 12/10/2024 07:21:46 by:CELESTINAThe Troponin units of report have been changed to meet the Chest Pain Accreditation requirement, element EC5.M1l2. Troponin units are changed from pg/ml to ng/L. Also, the decimal is removed and results are in whole numbers.X-ray reportOrdered By: Ryan Ugalde on 00-15-2523Rwlhn report [facility] [place] [address] XRay Report Signed Patient: Julian Montaño MR#: [id number] : 1955 Acct:[id number] Age/Sex: 69 / F ADM Date: 5 Loc: Room: [address] [place] [address] Type: ADM IN Attending Dr: Soco Beasley MD Copies to: Soco Beasley MD~ Ordering Provider: Soco Beasley MD Date of Service: 12/10/24 XR/XR chest 1V portable: Intubated SINGLE VIEW CHEST CLINICAL HISTORY: Transfer from [place]. Following responsive. COMPARISON: Chest 12/09/2024 FINDINGS: Enteric [...] DO 12/10/24 0912 Signed By: 12/10/24 0913 [facility] Main [address] [address] XRay Report Signed Patient: Julian Montaño MR#: [id number] : 1955 Acct:[id number] Age/Sex: 69 / F ADM Date: 5 Loc: 4C Room: [address] [place] [address] Type: ADM IN Attending Dr: Soco Beasley [...] DO 12/10/24 0831 Signed By: 12/10/24 0833 [facility] HospitalX-ray reportOrdered By: Torsten Toledo on 05-45-7282Ikrbr [address] [address] XRay Report Signed Patient: Julian Montaño MR#: [id number] : 1955 Acct:[id number] Age/Sex: 69 / F ADM Date: 5 Loc: 4C Room: [address] [place] [address] Type: ADM IN Attending Dr: Soco Beasley [...] Torsten Toledo M.D.12/10/2024 8:31 AM Dictation Location: [place] [address] Transcribed By: [facility] 12/10/24830 Dictated By: Torsten Toledo MD 12/10/24 0829 Signed By: 12/10/24 0831 [facility] Work Phone: XR abdomen 1Von 77-31-8202VV abdomen 1V[facility] Main [place] [address] [place] [address] XRay Report Signed Patient: Julian Montaño MR#: [id number] [birth year] : 1955 Acct:[id number] Age/Sex: 69 / F ADM Date: 12/09/24 Loc: Room: [address] [place] [address] Type: ADM IN Attending Dr: Soco Beasley [...] Jr DO 12/10/24 0831 Signed By: 12/10/24 0833[facility] Physician GroupXR chest 1V portableon 80-86-4393VZ chest 1V [facility] Main [place] [id number] XRay Report Signed Patient: Julian Montaño MR#: [id number] [birth year] : 1955 Acct:[id number] Age/Sex: 69 / F ADM Date: 12/09/24 Loc: Room: [address] [place] [address] Type: ADM IN Attending Dr: Soco Beasley MD Copies to: Soco Beasley MD Ordering Provider: Soco Beasley MD Date of Service: 12/10/24 XR/XR chest 1V portable: Intubated SINGLE VIEW CHEST CLINICAL HISTORY: Transfer from [place]. Following responsive. COMPARISON: Chest 12/09/2024 FINDINGS: Enteric [...] Jr, DO 12/10/24 0912 Signed By: 12/10/24 0913[facility] Physician GroupXR chest 1V [facility] Main [address] [address] XRay Report Signed Patient: Julian Montaño MR#: [id number] [birth year] : 1955 Acct:[id number] Age/Sex: 69 / F ADM Date: 12/09/24 Loc: Room: [address] [place] [address] Type: ADM IN Attending Dr: Soco Beasley MD Copies to: Soco Beasley MD Ordering Provider: Soco Bealsey MD Date of Service: 12/09/24 XR/XR chest [...] Torsten Toledo M.D.12/10/2024 8:31 AM Dictation Location: [place] [address] Transcribed By: [facility] 12/10/24 0831 Dictated By: Torsten Toledo MD 12/10/24 0829 Signed By: 12/10/24 0831[facility] Physician GroupAerobic Cultureon 12-09-2024 Aerobic CultureLight Normal Respiratory Chase 2 Days Gram Stain Result 3+ White Blood Cells Rare Epithelial Cells 4+ Gram Positive Cocci in Chains AND PAIRS PERFORMED BY: [address] [address] PATHOLOGIST DIGITAL PRINTER OPERATOR MANDY ACUÑA M.D.NormalThe [facility] Physician GroupComment on above: Performed By: #### GLULS #### Point of Care testing ,Aerobic cultureOrdered By: Soco Beasley on 09-99-2050Eftzvuhm identified Aer cx Nom (Unsp spec)Aerobic cultureAkron Children'S HospitalAnisocytosis LM Ql (Bld)Ordered By: Soco Beasley on 83-23-1655Bhoragwoihur Ql (Bld)Anisocytosis [Presence] in Blood by Light microscopyAkron Children'S HospitalArterial Blood Gason 11-85-2413SDJ Base Excess-4.7 mmol/LLow-3.0-3.0The [facility]ician GroupComment on above:Performed By: #### ABG #### Point of Care testing ,ABG Frac Inspired O240 %NormalThe [facility] Physician GroupComment on above: Performed By: #### ABG #### Point of Care testing ,ABG Oxygen Content6.5 mmol/LLow6.6-9.7The [facility]ician GroupComment on above:Performed By: #### ABG #### Point of Care testing ,ABG Oxygen Oguovwjhpv07.5 %Low95.0-100.0The [facility]ician GroupComment on above:Performed By: #### ABG #### Point of Care testing ,ABG NVN170.0 mm[Hg]Off scale high35.0-45.0The [facility]ician GroupComment on above:Performed By: #### ABG #### Point of Care testing ,ABG PEEP5 fuC39BbavnrCkaOrlando Health Orlando [facility] Center Physician GroupComment on above:Performed By: #### ABG #### Point of Care testing ,ABG PH7.23Low7.35-7.45The [facility]ician GroupComment on above:Performed By: #### ABG #### Point of Care testing ,ABG PO266.7 mm[Hg]Low80.0-100.0The [facility] GroupComment on above: Performed By: #### ABG #### Point of Care testing ,ABG TV450 mLNormalThe [facility]ician GroupComment on above:Performed By: #### ABG #### Point of Care testing ,CO2 [Moles/Vol]25.1 mmol/IRwlmbs06.0-27.0The [facility]ician GroupComment on above:Performed By: #### ABG #### Point of Care testing ,HCO3 (Bld) [Moles/Vol]23.3 mmol/JBgvzha34.0-29.0[facility] Comment on above:Performed By: #### ABG #### Point of Care testing ,Respiratory CriticalNormOrlando Health Orlando Regional Medical Center Physician GroupComment on above:Result Comment: Critical Value called on: 12/09/2024 at 21:27 PERFORMED BY: [address] [address] PATHOLOGIST DIGITAL PRINTER OPERATOR MANDY ACUÑA M.D.Performed By: #### ABG #### Point of Care testing ,Set Respiratory Okhn66VdyifbL[address] [place] [address] Physician GroupComment on above: Performed By: #### ABG #### Point of Care testing ,VBG Draw SiteLeft RadialShorePoint Health Punta Gorda Physician GroupComment on above: Performed By: #### ABG #### Point of Care testing ,Ventilator ModeACShorePoint Health Punta Gorda Physician GroupComment on above:Performed By: #### ABG #### Point of Care testing ,Band form neutrophils/100 WBC Manual cnt (Bld)Ordered By: Soco Beasley on 91-94-3644Rdni form neutrophils/100 WBC (Bld)Peripheral white blood cell differential % bands, microscopic examMontgomery General Hospital[address] Blood Cultureon 10-98-7968Mkgdbyjh identified Cx Nom (Bld)NO GROWTH 5 DAYS PERFORMED BY: [address] [address] PATHOLOGIST DIGITAL PRINTER OPERATOR MANDY ACUÑA M.D.[facility] Physician GroupComment on above: Performed By: #### GLULS #### Point of Care testing ,Bacteria identified Cx Nom (Bld)NO GROWTH 5 DAYS PERFORMED BY: [address] [address] PATHOLOGIST DIGITAL PRINTER OPERATOR MANDY ACUÑA M.D.[facility] Physician GroupComment on above: Performed By: #### GLULS #### Point of Care testing ,[place] cells [Presence] in Blood by Light microscopyOrdered By: Soco Beasley on 13-32-3074Ilvu cells LM Ql (Bld)[place] cells [Presence] in Blood by Light microscopyAkron Children'S HospitalComprehensive Metabolic Panelon 68-73-3492Sludwyb [Mass/Vol]3.6 g/dLNormal3.5-5.7The [facility] Comment on above:Performed By: #### ABG #### Point of Care testing ,Albumin/Globulin [Mass ratio]1.6 {ratio}NormalThe [facility] Comment on above:Performed By: #### ABG #### Point of Care testing ,ALP [Catalytic activity/Vol]78 U/UGufamk80-591Cae [facility] Comment on above:Result Comment: PERFORMED BY: [facility] [place] [address] PATHOLOGIST DIGITAL PRINTER OPERATOR MANDY ACUÑA M.D.Performed By: #### ABG #### Point of Care testing ,ALT [Catalytic activity/Vol]82 U/LHigh7-52The [facility]ician GroupComment on above:Performed By: #### ABG #### Point of Care testing ,Anion gap [Moles/Vol]8.6 mmol/LNormal6.0-15.0The [facility] Comment on above:Performed By: #### ABG #### Point of Care testing ,AST [Catalytic activity/Vol]61 U/TRxti74-28Jxd [facility] GroupComment on above:Performed By: #### ABG #### Point of Care testing ,Bilirubin [Mass/Vol]0.4 mg/dLNormal0.3-1.0The [facility]ician GroupComment on above:Performed By: #### ABG #### Point of Care testing ,Calcium [Mass/Vol]7.1 mg/dLLow8.6-10.3The [facility]ician GroupComment on above:Performed By: #### ABG #### Point of Care testing ,Chloride [Moles/Vol]97 mmol/RFnc13-982Zyo [facility] GroupComment on above:Performed By: #### ABG #### Point of Care testing ,CO2 [Moles/Vol]24.6 mmol/YKsgxhj48.0-31.0The [facility] GroupComment on above:Performed By: #### ABG #### Point of Care testing ,Creatinine [Mass/Vol]0.68 mg/dLNormal0.60-1.20The [facility] Comment on above:Performed By: #### ABG #### Point of Care testing ,GFR/1.73 sq M.predicted MDRD (S/P/Bld) [Vol rate/Area]mL/min/{1.73_m2}NormalThe [facility]ician GroupComment on above:Performed By: #### ABG #### Point of Care testing ,Globulin (S) [Mass/Vol]2.3 g/dLShorePoint Health Punta Gorda Physician [facility]iComment on above:Performed By: #### ABG #### Point of Care testing ,Glucose [Mass/Vol]186 mg/fRKbtx24-465Zin [facility] GroupComment on above:Result Comment: Random Glucose Reference Range is dependent on time and content of last meal. Glucose of more than 200 mg/dL in a nonstressed, ambulatory subject supports the diagnosis of Diabetes Mellitus. ADA recommended reference rangePerformed By: #### ABG #### Point of Care testing ,Potassium [Moles/Vol]3.2 mmol/LLow3.5-5.1The [facility]ician GroupComment on above:Performed By: #### ABG #### Point of Care testing ,Protein [Mass/Vol]5.9 g/dLLow6.4-8.9The [facility]iComment on above:Performed By: #### ABG #### Point of Care testing ,Sodium [Moles/Vol]127 mmol/IHaf867-739Wqc [facility] GroupComment on above:Performed By: #### ABG #### Point of Care testing ,Urea nitrogen [Mass/Vol]16 mg/dLNormal7-25The [facility]iComment on above:Performed By: #### ABG #### Point of Care testing ,Diff and CBCon 17-54-0339Bwhgmeyhhbql Ql (Bld)SlightNoCleveland Clinic Lutheran HospitalComment on above:Performed By: #### ABG #### Point of Care testing ,Band form neutrophils/100 WBC (Bld)27 %High0-5The [facility] Comment on above:Performed By: #### ABG #### Point of Care testing ,Crenated RBCSlightShorePoint Health Punta Gorda Physician GroupComment on above:Performed By: #### ABG #### Point of Care testing ,Erythrocyte distribution width (RBC) [Ratio]15.4 %High11.9-15.3The [facility]ician GroupComment on above:Performed By: #### ABG #### Point of Care testing ,Hematocrit (Bld) [Volume fraction]33.0 %Low34.0-46.4The [facility] GroupComment on above:Performed By: #### ABG #### Point of Care testing ,Hemoglobin (Bld) [Mass/Vol]10.7 g/dLLow11.8-15.4ThPortneuf Medical Center Physician [facility] Comment on above:Performed By: #### ABG #### Point of Care testing ,Lymphocytes/100 WBC (Bld)0 %Bry03-20Vvj [facility] GroupComment on above:Performed By: #### ABG #### Point of Care testing ,MCH (RBC) [Entitic mass]28.1 wsUikgsu71.7-34.3The [facility] Comment on above:Performed By: #### ABG #### Point of Care testing ,MCV (RBC) [Entitic vol]87.0 yDPmyqlh29-752Rwk [facility] Physician GroupComment on above:Performed By: #### ABG #### Point of Care testing ,Mean Corpuscular HGB Conc32.3 g/yCJzgvej56.0-35.0The [facility] Comment on above:Performed By: #### ABG #### Point of Care testing ,MicrocytosisSlightNoReplaced by [facility] Physician GroupComment on above:Performed By: #### ABG #### Point of Care testing ,Monocytes/100 WBC (Bld)2 %Normal2-11[facility] Physician GroupComment on above:Performed By: #### ABG #### Point of Care testing ,Platelet EstimateNormalNormalShorePoint Health Punta Gorda Physician GroupComment on above:Performed By: #### ABG #### Point of Care testing ,Platelet mean volume (Bld) [Entitic vol]6.9 fLNormal6.3-10.7The [facility]ician GroupComment on above:Result Comment: PERFORMED BY: [place] [address] PATHOLOGIST DIGITAL PRINTER OPERATOR MANDY ACUÑA M.D.Performed By: #### ABG #### Point of Care testing ,Platelet MorphologyNormalNormAdventHealth Winter Park Physician GroupComment on above:Result Comment: PERFORMED BY: [place] [id number] PATHOLOGIST DIGITAL PRINTER OPERATOR MANDY ACUÑA M.D.Performed By: #### ABG #### Point of Care testing ,Platelets (Bld) [#/Vol]236 10*3/zFBeqcvr155-892Zsz [facility] Comment on above:Performed By: #### ABG #### Point of Care testing ,PoikilocytosisSYadkin Valley Community Hospital Physician GroupComment on above: Performed By: #### ABG #### Point of Care testing ,PolychromasiaSYadkin Valley Community Hospital Physician GroupComment on above: Performed By: #### ABG #### Point of Care testing ,RBC (Bld) [#/Vol]3.80 10*6/uLNormal3.60-5.00The [facility] Comment on above:Performed By: #### ABG #### Point of Care testing ,Segmented neutrophils/100 WBC (Bld)71 %Sgqt34-09Bva [facility] Comment on above:Performed By: #### ABG #### Point of Care testing ,WBC (Bld) [#/Vol]15.9 10*3/uLHigh3.8-11.6The [facility] Physician GroupComment on above:Performed By: #### ABG #### Point of Care testing ,ECG 12 lead ECGon 08-36-2495VUU 12 lead ECGOHIOHEALTH N[facility] Main [place] [id number] Electrocardiograph Report Signed Patient: Julian Montaño MR#: [id number] [birth year] : 1955 Acct:[id number] Age/Sex: 69 / F ADM Date: 12/09/24 Loc: Room: [address] [place] [address] Type: ADM IN Attending Dr: Daniel Garza [...] block Abnormal ECG Confirmed by Krissy Cortez ([id number]) on 12/12/2024 12:01:02 AM Referred By: Electronically Signed By: Krissy Cortez Transcribed By: MUS Signed By Krissy Cortez MD [address] [place] [address] Physician GroupErythrocyte morphology finding [Identifier] in BloodOrdered By: Soco Beasley on 99-17-0163ZYD morphology finding Nom (Bld)RBC morphologyAkron Children'S HospitalGram Stainon 87-54-1808Ecrystfuytm observation Gram stain Nom (Unsp spec)Gram Stain Result 3+ White Blood Cells Rare Epithelial Cells 4+ Gram Positive Cocci in Chains AND PAIRS PERFORMED BY: [place] [address] PATHOLOGIST DIGITAL PRINTER OPERATOR MANDY CalvoThe [facility] Physician GroupComment on above: Performed By: #### GLULS #### Point of Care testing ,Gram stain microscopyOrdered By: Soco Beasley on 29-50-2357Imxygpbwixp observation Gram stain Nom (Unsp spec)Gram stain microscopyAkron Children'S HospitalLaboratory - Microbiology and Antimicrobial susceptibilityOrdered By: Soco Beasley on 68-40-6249Fwxizyiw identified Cx Nom (Bld)NO GROWTH 5 DAYS [facility]'S HospitalBacteria identified Cx Nom (Bld)NO GROWTH 5 DAYSAkron Children'S HospitalLactate [Moles/volume] in Serum or Plasma Ordered By: Soco Beasley on 42-68-7518Iaowhqx [Moles/Vol]Lactate [Moles/volume] in Serum or Plasma0.5-1.9[facility]S HospitalComment on above: Lactic Acid reference range has been updated to 0.5 1.9 mmol/L and the critical range of 2.0 or greater.Lactic Acidon 25-93-8635Oybvjqi [Moles/Vol]1.4 mmol/L Normal0.5-1.9The [facility] Physician GroupComment on above:Result Comment: Lactic Acid reference range has been updated to 0.5 ? 1.9 mmol/L and the critical range of 2.0 or greater. PERFORMED BY: [address] [place] [address] PATHOLOGIST DIGITAL PRINTER OPERATOR MANDY ACUÑA M.D.Performed By: #### GLULS #### Point of Care testing ,Lactate [Moles/Vol]1.3 mmol/LNormal0.5-1.9The [facility]iComment on above:Result Comment: Lactic Acid reference range has been updated to 0.5 ? 1.9 mmol/L and the critical range of 2.0 or greater. PERFORMED BY: [facility] [address] [facility] HOSPITALRia[place] [address] PATHOLOGIST DIGITAL PRINTER OPERATOR MANDY ACUÑA M.D.Performed By: #### GLULS #### Point of Care testing ,Lymphocytes/100 WBC Manual cnt (Bld)Ordered By: Soco Beasley on 12-09-2024 Lymphocytes/100 WBC (Bld)Lymphocytes/100 leukocytes in Blood by Manual countLow 18-42[facility]'S HospitalMicrocytes LM Ql (Bld)Ordered By: Soco Beasley on 50-06-9861Kcenxenhjk Ql (Bld)Microcytes [Presence] in Blood by Light microscopyAkron Children'S HospitalMonocytes/100 WBC Manual cnt (Bld) Ordered By: Soco Beasley on 23-86-6842Wjgdecqkm/100 WBC (Bld)Monocytes/100 leukocytes in Blood by Manual count2-11[facility]S HospitalPlatelet adequacy [Presence] in Blood by Light microscopyOrdered By: Soco Beasley on 81-96-9196Vmaqjxnxk LM Ql (Bld)Platelet adequacy [Presence] in Blood by Light microscopyNoMarietta Osteopathic ClinicPlatelet morphology finding [Identifier] in BloodOrdered By: Soco Beasley on 18-27-1157Vayouxpq morphology finding Nom (Bld)Platelet morphology finding [Identifier] in BloodNormal [facility]S HospitalPoikilocytosis [Presence] in Blood by Light microscopyOrdered By: Soco Beasley on 03-55-7059Jydoiacnyjpqtg LM Ql (Bld) Poikilocytosis [Presence] in Blood by Light microscopyAkron Children'S HospitalPolychromasia [Presence] in Blood by Light microscopyOrdered By: Soco Beasley on 45-63-0155Zdimlylqoalkx LM Ql (Bld)Polychromasia [Presence] in Blood by Light microscopySouthview Medical Centeregmented neutrophils/100 WBC Manual cnt (Bld)Ordered By: Soco Beasley on 01-19-7841Oyywpapwl neutrophils/100 WBC (Bld)Manual blood segmented neutrophils/100 neeeefulxlMcly37-40CnsekweuvAkron Children'S HospitalTriglycerideson 85-36-8681Gzrequhfkkzk [Mass/Vol]63 mg/dL Osivxy82-190Apf [facility] Physician GroupComment on above:Result Comment: TRIG ATP III CLASSIFICATION TRIG less than 150 mg/dL Normal TRIG 150-199 mg/dL Borderline high TRIG 200-500 mg/dL High TRIG greater than 500 mg/dL Very high Standard traceable to the Center for Disease Conrtrol and Prevention (CDC) test method. PERFORMED BY: [address] [place] [address] PATHOLOGIST DIGITAL PRINTER OPERATOR MANDY ACUÑA M.D.Performed By: #### GLULS #### Point of Care testing ,Troponin I High Sensitivityon 81-54-0895Eyimlrej I High Mjuakhjssgk0361Urh scale high0-15The [facility]ville Physician GroupComment on above:Result Comment: Critical Result : Called to and read back by: VIOLA KAY at: 12/09/2024 23:07:02 by:GENA The Troponin units of report have been changed to meet the Chest Pain Accreditation requirement, element EC5.M1l2. Troponin units are changed from pg/ml to ng/L. Also, the decimal is removed and results are in whole numbers. PERFORMED BY: [facility] [place] [address] PATHOLOGIST DIGITAL PRINTER OPERATOR MANDY ACUÑA M.D.Performed By: #### ABG #### Point of Care testing ,HbA1c (Bld) [Mass fraction]on 95-66-6104Mkezixubpqsoye and review of laboratory resultsNormalAffinity Health PartnersLaboratory - Hematology and Cell countson 55-27-6649BfC8z (Bld) [Mass fraction]6.1 %[facility] TOMOSYNTHESIS SCREENING BIon 63-73-1814Xlw[address] [address] Mammography Report Signed Patient: JULIAN MONTAÑO MR#: [id number] : 1955 Acct:[id number] Age/Sex: 68 / F ADM Date: 01/16/24 Loc: MAMMO Attending Dr: Shaikh Gonzalo Hooker Ordering Physician: Shaikh Morro Sánchez Results: Date of Service: 01/16/24 Follow Up: Procedure(s): MM tomosynthesis screening BI Accession Number(s): [id number] cc: Shaikh Morro Sánchez Patient Name: JULIAN MONTAÑO MR#: [id number] : 1955 Exam Date: 01/16/2024 Ordering Doctor: [...] uterine cancer at age 53. LOCATION: [facility] BREAST COMPOSITION: Almost entirely fatty. FINDINGS: [...] M.D. Signed By: 01/16/24910 DD/ 9 TD/TT: Dairy Husbandry Worker:TBHRadiology, Radiologist, - 01/16/2024 [place] [address] Mammography Report Signed Patient: JULIAN MONTAÑO MR#: [id number] : 1955 Acct:[id number] Age/Sex: 68 / F ADM Date: 01/16/24 Loc: MAMMO Attending Dr: Shaikh Gonzalo Hooker Ordering Physician: Shaikh Morro Sánchez Results: Date of Service: 01/16/24 Follow Up: Procedure(s): MM tomosynthesis screening BI Accession Number(s): [id number] cc: Shaikh Morro Sánchez Patient Name: JULIAN MONTAÑO MR#: [id number] : 1955 Exam Date: 01/16/2024 Ordering Doctor: [...] uterine cancer at age 53. LOCATION: [facility] BREAST COMPOSITION: Almost entirely fatty. FINDINGS: [...] M.D. Signed By: 01/16/24910 DD/ 9 TD/TT: Dairy Husbandry Worker: [facility] CenterRadiology Study observation (narrative)[facility] TOMOSYNTHESIS SCREENING BIOrdered By: Radiologist Radiology on 13-18-2142ARGK [employer] Work Phone: rt PULMONARY FUNCTION TESTon 51-18-4008[place] [address] Respiratory Report Signed Patient: JULIAN MONTAÑO MR#: [id number] : 1955 Acct:[id number] Age/Sex: 68 / F ADM Date: 12/12/23 Loc: CARD Attending Dr: Shaikh Gonzalo Hooker Ordering Physician: Shaikh Morro Sánchez Date of Service: 12/12/23 Procedure(s): RT pulmonary function test Accession Number(s): [id number] cc: [facility] Test Date: 2023-12-12 Pat Name: JULIAN MONTAÑO Department: Room: - Gender: Female Hl7 Interface Developer: Zaina Albarado RRT : 1955 Requested By: 1575 Order Number: [id number] Yani MD: [place] Interpretive Statements Pulmonary [...] D.O. Signed By: 12/21/2380112/21/23801 DD/ 9 TD/TT: Dairy Husbandry Worker:TBHRadiology, Radiologist, - 12/21/2023 [place] [address] Respiratory Report Signed Patient: JULIAN MONTAÑO MR#: [id number] : 1955 Acct:[id number] Age/Sex: 68 / F ADM Date: 12/12/23 Loc: CARD Attending Dr: Shaikh Gonzalo Hooker Ordering Physician: Shaikh Morro Sánchez Date of Service: 12/12/23 Procedure(s): RT pulmonary function test Accession Number(s): [id number] cc: [facility] Test Date: 2023-12-12 Pat Name: JULIAN MONTAÑO Department: Room: - Gender: Female Hl7 Interface Developer: Zaina Albarado RRT : 1955 Requested By: 1575 Order Number: [id number] Reading MD: [place] Interpretive Statements Pulmonary [...] D.O. Signed By: 12/21/2380112/21/23801 DD/ 0910 TD/TT: Dairy Husbandry Worker: SONI Saldana PULMONARY FUNCTION TESTOrdered By: Radiologist Radiology on 66-76-7161UEVK Skipola Work Phone: Neurology Forms- Texton 04-10-3726Rukjqyjyx Forms- [id number]#1.00TIFFMercy Health Lorain HospitalConsent for Treatmenton 55-25-4107Bgdhcsv for Treatment [id number]#1.00TIFMercy Health Perrysburg HospitalRT PULMONARY FUNCTION TESTon 00-79-5468Acxbmnmxc Study observation (narrative)[facility] CenterPhysician Orderon 86-67-0410Mksehslmp Order [id number]#1.00TIFMercy Health Perrysburg HospitalMRI Brain w/ + w/o Contraston 64-83-1931LES Brain w/ + w/o ContrastExam Date/Time: 11/30/2023 [...] Technical Comments Vueway Contrast amount in ml's: 6NormalGrand Lake Joint Township District Memorial HospitalMRI Spine Cervical w/o Contraston 14-41-9005CTV Spine Cervical w/o ContrastExam Date/Time: 11/30/2023 17:25 [...] Transcribed by: SANA Technologist: CORDELIA Technical Comments NoneNormalGrand Lake Joint Township District Memorial HospitalBUNon 58-60-5123Vbnd nitrogen [Mass/Vol]17 mg/dLNormal5-[facility] Memorial HospitalComment on above:Performed By: #### [id number], [id number], [id number] #### [facility] [address] [place] [address]Hmqvdpn for Treatmenton 73-30-5961Yvcasxv for Treatment [id number]#1.00TIFFNoCleveland Clinic FoundationCreatinineon 76-51-8124Clcuecoagt [Mass/Vol]0.8 mg/dLNormal0.5-1.3Fisher Grace Medical CenterComment on above:Performed By: #### [id number], [id number], [id number] #### [facility] [address] [place], [place] [address]RUM - MRI Screening Formon 95-41-5441SQU - MRI Screening Form [id number]#1.00TIFFNoCleveland Clinic FoundationeGFRon 92-10-3410bCTG68 mL/min/1.73 r0Qeolkp>=59Grand [facility] Memorial HospitalComment on above:Order Comment: Order added by Discern Expert.Performed By: #### [id number], [id number], [id number] #### [facility] [address] [place], [place] [address]Fudfmnlrt Orderon 36-77-1683Hobjaymwi Order [id number]#1.00TIFMercy Health Perrysburg HospitalCBC AUTO DIFFon 16-60-4482PRGC #0.1 103/ulNormal0.0-0.1[facility] Medical CenterComment on above:Performed By: #### CBC #### [facility] [address] [address] [address] Stan AcevesBasophils/100 WBC (Bld)0.7 %Normal0.2-2.0[facility] Comment on above:Performed By: #### CBC #### [facility] [address] [address] [address] Stan Anderson #0.1 103/ulNormal0.0-0.7The [facility] HospitalComment on above: Performed By: #### CBC #### [facility] [address] [address] [address] Stan Buenoosinophils/100 WBC (Bld)1.0 %Normal0.9-7.0[facility] Comment on above:Performed By: #### CBC #### [facility] [address] [place] [address] Dr. Stan Buenorythrocyte distribution width (RBC) [Ratio]16.8 %Critically high 11.0-15.0[facility] Medical CenterComment on above:Performed By: #### CBC #### [facility] [address] [place] [address] Dr. Stan AcevesHematocrit (Bld) [Volume fraction]33.7 %Critically low36.0-48.0 The [facility] HospitalComment on above:Performed By: #### CBC #### [facility] [address] [place] [address] Dr. Stan AcevesHemoglobin (Bld) [Mass/Vol]10.6 g/dLCritically low12.0-16.0The [facility] HospitalComment on above:Performed By: #### CBC #### [facility] [address] [place] [address] Dr. Stan Jewell #0.03 10e3/ulNormal0.00-0.03The [facility] HospitalComment on above:Performed By: #### CBC #### [facility] [address] [place] [address] Dr. Stan Jewell %0.3 %Normal0.0-0.5The [facility] HospitalComment on above: Performed By: #### CBC #### [facility] [address] [place] [address] Dr. Stan BarrH #0.9 103/ulCritically low1.2-3.8[facility] Comment on above:Performed By: #### CBC #### [facility] [address] [place] [address] Dr. Stan Jomphocytes/100 WBC (Bld)9.9 %Critically low20.5-60.0The [facility] HospitalComment on above:Performed By: #### CBC #### [facility] [address] [place] [address] Dr. Stan Ramsey DIFF REQNONormalThe Protestant HospitalComment on above: Performed By: #### CBC #### [facility] [address] [place] [address] Dr. Stan Garcia (RBC) [Entitic mass]25.7 pgCritically low26.7-34.0The [facility] HospitalComment on above:Performed By: #### CBC #### [facility] [address] [place] [address] Dr. Stan Garcia (RBC) [Mass/Vol]31.5 g/vDAnoaps85.9-35.2The [facility] HospitalComment on above:Performed By: #### CBC #### [facility] [address] [place] [address] Dr. Stan Garcia (RBC) [Entitic vol]81.6 zYQozjno08.0-99.0The [facility] HospitalComment on above:Performed By: #### CBC #### [facility] [address] [place] [address] Dr. Stan Izquierdo #0.7 103/ulNormal0.3-0.8The [facility] HospitalComment on above:Performed By: #### CBC #### [facility] [address] [place] [address] Dr. Stan Elkinsocytes/100 WBC (Bld)7.3 %Normal1.7-12.0[facility] Comment on above:Performed By: #### CBC #### [facility] [address] [place] [address] Dr. Stan Borden #7.4 103/ulCritically high1.4-6.5[facility] Comment on above:Performed By: #### CBC #### [facility] [address] [place] [address] Dr. Stan Gilliamutrophils/100 WBC (Bld)80.8 %Critically high43.0-75.0The [facility] HospitalComment on above:Performed By: #### CBC #### [facility] [address] [place] [address] Dr. Stan AcevesPlatelet mean volume (Bld) [Entitic vol]8.2 fLCritically low 9.5-13.5[facility] HospitalCommunson healthcare [facility] on above:Performed By: #### CBC #### [facility] [address] [place] [address] Dr. Stan AcevesPLT396 103/vvBrsfsd669-117Dxb [facility] HospitalCommunson healthcare [facility] on above: Performed By: #### CBC #### [facility] [address] [place] [address] Dr. Stan AcevesRBC4.13 106/ulCritically low4.20-5.40The [facility] on above:Performed By: #### CBC #### [facility] [address] [place] [address] Dr. Stan AcevesWBC9.2 103/ulNormal4.0-11.0The [facility] on above: Performed By: #### CBC #### [facility] [address] [place] [address] Dr. Stan AcevesGLYCOHEMOGLOBIN A1Con 49-13-8449GOQ RECOMMENDATIONSEE BELOWNormSelect Medical Specialty Hospital - TrumbullCommunson healthcare [facility] on above:Result Comment: ADA RECOMMENDED LIMIT 4.0 - 6.0 ADA THERAPEUTIC TARGET < 7.0 ACTION SUGGESTED > 7.0Performed By: #### A1C #### [facility] [address] [place] [address] Dr. Stan AcevesGlucose [Mass/Vol]126 mg/dLNormalThKettering Health Greene Memorial on above:Performed By: #### A1C #### [facility] [address] [place] [address] Dr. Stan AcevesHbA1c (Bld) [Mass fraction]6.0 %Normal4.5-6.2The [facility] on above:Performed By: #### A1C #### [facility] [address] [place] [address] Dr. Stan Smith 45-47-1061Cdyo [Mass/Vol]36.0 ug/dLCritically low 50.0-170.0The [facility] HospitalComment on above:Performed By: #### IRON #### [facility] [address] [address] [address] Stan Toribio, RAND URon 10-37-8288vWIM<1.3Normal<=30.0The [facility] HospitalComment on above:Performed By: #### MALBR #### [facility] [address] [address] [address] Stan Brown 14(COMP METB)on 84-37-6838Wtxbevd [Mass/Vol]3.5 g/dLNormal 3.4-5.0The [facility] HospitalComment on above:Performed By: #### T4, CMP, TSH #### [facility] [address] [place] [address] Dr. Stan AcevesAlbumin/Globulin [Mass ratio]1.0 {ratio}NormalThe Protestant HospitalComment on above:Performed By: #### T4, CMP, TSH #### [facility] [address] [place] [address] Dr. Stan Skaggs [Catalytic activity/Vol]105 U/YRnytmh43-434Cut [facility] Hospitalment on above:Performed By: #### T4, CMP, TSH #### [facility] [address] [place] [address] Dr. Stan Pastrana [Catalytic activity/Vol]20 U/POpwugp62-38Qaf [facility] Hospitalment on above:Performed By: #### T4, CMP, TSH #### [facility] [address] [place] [address] Dr. Stan Hernandez gap [Moles/Vol]12.1 mmol/LNormalThe [facility] on above:Performed By: #### T4, CMP, TSH #### [facility] [address] [place] [address] Dr. Stan Denise [Catalytic activity/Vol]14 U/LCritically iru54-62Eyi Protestant HospitalComment on above:Performed By: #### T4, CMP, TSH #### [facility] [address] [place] [address] Dr. Stan AcevesBilirubin [Mass/Vol]0.3 mg/dLNormal0.2-1.0[facility] Comment on above:Performed By: #### T4, CMP, TSH #### [facility] [address] [place] [address] Dr. Stan AcevesCalcium [Mass/Vol]9.1 mg/dLNormal8.5-10.1[facility] Comment on above:Performed By: #### T4, CMP, TSH #### [facility] [address] [address] [address] Stan AcevesChloride [Moles/Vol]103 mmol/GZlqxnz24-607[facility] Comment on above:Performed By: #### T4, CMP, TSH #### [facility] [address] [place] [address] Dr. Stan AcevesCO2 [Moles/Vol]26.8 mmol/EYwnkbx00.0-32.0[facility] Comment on above:Performed By: #### T4, CMP, TSH #### [facility] [address] [place] [address] Dr. Stan AcevesCreatinine [Mass/Vol]0.84 mg/dLNormal0.55-1.02The [facility] HospitalComment on above:Performed By: #### T4, CMP, TSH #### [facility] [address] [place] [address] Dr. Stan BuenoGFR-AF PORTUGUESE>60Normal>=60The [facility] HospitalComment on above:Performed By: #### T4, CMP, TSH #### [facility] [address] [place] [address] Dr. Stan BuenoGFR-NON AF PORTUGUESE>60Normal>=60The [facility] HospitalComment on above:Performed By: #### T4, CMP, TSH #### [facility] [address] [place] [address] Dr. Stan AcevesGlobulin (S) [Mass/Vol]3.6 g/dLNormalThe Protestant HospitalComment on above:Performed By: #### T4, CMP, TSH #### [facility] [address] [address] [address] Stan AcevesGlucose [Mass/Vol]84 mg/vJUmnfpu27-662AbgOhiohealth Grant Medical Center Comment on above:Performed By: #### T4, CMP, TSH #### [facility] [address] [place] [address] Dr. Stan AcevesPotassium [Moles/Vol]3.9 mmol/LNormal3.5-5.1[facility] Comment on above:Performed By: #### T4, CMP, TSH #### [facility] [address] [place] [address] Dr. Stan AcevesProtein [Mass/Vol]7.1 g/dLNormal6.4-8.2[facility] Comment on above:Performed By: #### T4, CMP, TSH #### [facility] [address] [place] [address] Dr. Stan AcevesSodium [Moles/Vol]138 mmol/IItfmio045-278X[facility] Comment on above:Performed By: #### T4, CMP, TSH #### [facility] [address] [place] [address] Dr. Stan AcevesUrea nitrogen [Mass/Vol]12.0 mg/dLNormal7.0-18.0[facility] CenterComment on above:Performed By: #### T4, CMP, TSH #### [facility] [address] [place] [address] Dr. Stan Golden nitrogen/Creatinine [Mass ratio]14.3 mg/mgNormalThe Protestant HospitalComment on above:Performed By: #### T4, CMP, TSH #### [facility] [address] [place] [address] Dr. Stan Shah4on 43-35-3951J0 [Mass/Vol]8.70 ug/dLNormal4.80-13.90The [facility] HospitalComment on above:Performed By: #### T4, CMP, TSH #### [facility] [address] [place] [address] Dr. Stan Aden 29-90-4274FST7.209 uIU/mLNormal0.358-3.740The [facility] Hospitalment on above:Performed By: #### T4, CMP, TSH #### [facility] [address] [address] [address] Stan Menjivar BRAIN WO W CONon 23-56-6291MZL BRAIN WO W CONEXAMINATION: MRI BRAIN WO [...] Electronically authenticated by: PATRICK PIERRE Date: 2022-04-27 10:[address] [place], [place] [address]CREATININEon 83-86-8752Ctvmhcmtzq [Mass/Vol]0.91 mg/dLNormal 0.55-1.02The [facility] HospitalComment on above:Performed By: #### CREA #### [facility] [address] [address] [address] Pierce ChangEGFR-AF PORTUGUESE>60Normal>=60The [facility] HospitalComment on above:Performed By: #### CREA #### [facility] [address] [place], [place] [address] Dr. Pierce ChangEGFR-NON AF PORTUGUESE>60Normal>=60The Protestant HospitalComment on above:Performed By: #### CREA #### [facility] [address] [place], [place] [address] Dr. Stan Brody ABD/PELVIS WO W CONon 97-73-8756EMD ABD/PELVIS WO W CON EXAMINATION: CTA ABD/PELVIS [...] Electronically authenticated by: PATRICK PIERRE Date: 2022-04-08 10:04[facility] HospitalEstablished Visit (Otolaryngology)on 96-04-3912Lcbnfqcsedi Visit (Otolaryngology)Chief Complaintannual follow up acoustic neuroma [...] SNHL (sensorineural hearing loss) (389.16) (H90.5) Benign Print Shop Helper nial Nerve Neoplasm Right acoustic neuroma (225.1) [...] MOUTH EVERY week --take 30 MINUTES beforeBREAKFAST;Therapy: 76Bgt1973 to Recorded Rx By: Zion; Dispense: 84 [...] TAKE 1 TABLET BY MOUTH DAILY ATBEDTIME;Therapy: 23Ovt2650 to Recorded Rx By: Zion; Dispense: 30 Days ; #:30; Refill: 0; ARIEL = N; Record; Last Updated By: Domenica Topete; 10/11/2017 1:16:16 PM Famotidine 20 MG Oral Tablet; TAKE 1 TABLET AT BEDTIME and TAKE 1 TABLET ASNEEDED during the day;Therapy: 42Kru0789 to Recorded Rx By: Zion; Dispense: 30 Days ; #:60; Refill: 0; ARIEL = N; Record; Last Updated By: Domenica Topete; 10/11/2017 1:16:16 PM Fluticasone Propionate 50 MCG/ACT Nasal Suspension; INHALE 1 (ONE) SPRAY INEACH NOSTRIL EVERY DAY;Therapy: 85Vwb7620ye Recorded Rx By: Chalo; Dispense: 30 Days ; #:16; Refill: 0; ARIEL = N; Record; Last Updated By: Domenica Topete; 10/11/2017 1:16:16 PM Lisinopril 20 MG Oral Tablet;Therapy: 53Ooy8289 to Recorded Rx By: GIANNA ISABEL; Dispense: 30 Days ; #:30; Refill: 0; ARIEL = N; Record; Last Updated By: Beverley Covarrubias; 09/16/2015 1:29:38 PM Meloxicam 7.5 MG Oral Tablet;Therapy: 29Lws7082 to Recorded Rx By: GIANNA ISABEL; Dispense: [...] Kit; use to test BLOOD SUGAR DAILY;Therapy: 23Lsd9165 to Recorded Rx By: Chalo; Dispense: 1 Days ; #:1; R efill: 0; ARIEL = N; Record; Last Updated By: Domenica Topete; 10/11/2017 1:16:16 PM Mauro-Michael Automatic;Therapy: 91Egm5587 to Recorded Dispense: 30 Days ; #:1; Refill: 0; ARIEL = N; Record; Last Updated By: Rachel Contreras; 10/10/2013 3:23:22 PM Diagnoses/Problems Acoustic neuroma (225.1) (D33.3) Orders MRI IAC w/wo Contrast; Status:Hold For - Scheduling,Retrospective By ProtocolAuthorization; Requested for:15Sep2020; Perform:[facility] Radiology Services Imaging; Due:14Dec2020; Last Updated By:Carole Lanier; 09/26/2018 3:48:32 PM;Ordered; For:Acoustic neuroma; Ordered By:Shane Wilkerson;Radiologist to Determine Optimal Study : YWhat are the patient's signs and symptoms? : s/p CPA lesion resection Signatures Electronically signed by : Shane Wilkerson MD; Sep 26 2018 4:29PM EST (Author)NormalUH Touchworks Vital Signs Date TimeVital SignValuePerforming HaqkqadnpWyfbhvhm05-87-8720 13:29-0400Body .02 [place] [employer] MATHEMATICS LECTURER-C Work Phone: [phone] [place], [place] 8835010-30-2025 13:29-0400 Body kgyjrsaodsq45.1 [degF][employer] MATHEMATICS L[employer]ER-C Work Phone: [phone] [place], [place] 8835010-30-2025 13:29-0400 Diastolic blood moychcrb65 mm[Hg]La [employer] MATHEMATICS LECTURER-C Work Phone: [facility]10-30-2025 13:29-0400 Heart rate69 /minLisa Dalehfariba MATHEMATICS LECTURER-C Work Phone: [phone]10-30-2025 13:29-0400 Respiratory rate18 /minLisa Dalehholz MATHEMATICS LECTURER-C Work Phone: [phone] [place], [place] 8835010-30-2025 13:29-0400 SaO2% (BldA) [Mass fraction]99 %La Aichholz MATHEMATICS LECTURER-C Work Phone: [phone] [place], [place] 8835010-30-2025 13:29-0400 Systolic blood elpwbsix859 mm[Hg]La Aichholz MATHEMATICS LECTURER-C Work Phone: [phone]10-09-2025 09:03-0400 Body uouxig913.02 cmLisa Aichholz MATHEMATICS LECTURER-C Work Phone: [phone]10-09-2025 09:03-0400 Body mass index (BMI) [Ratio]26.7 kg/m2Lisa Aichholz MATHEMATICS LECTURER-C Work Phone: [phone]10-09-2025 09:03-0400 Body .3 [degF]La Aichholz MATHEMATICS LECTURER-C Work Phone: [phone] [address]10-09-2025 09:03-0400 Body uqsauo98.54 kgLisa Aichholz MATHEMATICS LECTURER-C Work Phone: [phone] [address]10-09-2025 09:03-0400 Diastolic blood sbcmxuwo63 mm[Hg]La Aichholz MATHEMATICS LECTURER-C Work Phone: [phone] [place], [place] 8835010-09-2025 09:03-0400 Heart rate84 /minLisa Aichholz MATHEMATICS LECTURER-C Work Phone: [phone] [place], [place] 8835010-09-2025 09:03-0400 Inhaled oxygen flow rate3 L/minLisa Aichholz MATHEMATICS LECTURER-C Work Phone: [phone] [place], [place] 8835010-09-2025 09:03-0400 Respiratory rate20 /minLisa Aichholz MATHEMATICS LECTURER-C Work Phone: [phone] [place], [place] 8835010-09-2025 09:03-0400 SaO2% (BldA) [Mass fraction]98 %La Aichholz MATHEMATICS LECTURER-C Work Phone: [place] [facility]10-09[facility] 09:03-0400 Systolic blood pvinrtlk44 mm[Hg]La Aichholz MATHEMATICS LECTURER-C Work Phone: [facility]09-17-2025 11:02-0400 Body .02 cmLisa Aichholz MATHEMATICS LECTURER-C Work Phone: 1(935)566-[address] [place], [place] [address]35009-17-2025 11:02-0400 Body werjyrynxie63.1 [degF]La Aichholz MATHEMATICS LECTURER-C Work Phone: 1(100)[address]09-17-2025 11:02-0400 Diastolic blood nyclplmu11 mm[Hg]La Aichholz MATHEMATICS LECTURER-C Work Phone: 1(700)[address]09-17-2025 11:02-0400 Heart rate92 /minLisa Aichholz MATHEMATICS LECTURER-C Work Phone: 1(397)804-[address] [place], [place] [address]-17-2025 11:02-0400 Inhaled oxygen flow rate3 L/minLisa Aichholz MATHEMATICS LECTURER-C Work Phone: [facility]09-17-2025 11:02-0400 Respiratory rate18 /minLisa Aichholz MATHEMATICS LECTURER-C Work Phone: [facility]09-17-2025 11:02-0400 SaO2% (BldA) [Mass fraction]95 %La Aichholz MATHEMATICS LECTURER-C Work Phone: [facility]09-17-2025 11:02-0400 Systolic blood fibhvcwu48 mm[Hg]La Aichholz MATHEMATICS LECTURER-C Work Phone: [facility]08-13-2025 10:26-0400 Body sldmzlooghr92.4 [degF]La Aichholz MATHEMATICS LECTURER Work Phone: 1(419)547-[address] [place], [place] [address]Rjoanropbs99-67-7362 10:26-0400Diastolic blood xnezbbmj37 mm[Hg]La Aichholz MATHEMATICS LECTURER Work Phone: [facility] CenterBcvzwvccnm62-50-4388 10:26-0400Heart rate85 /min La Aichholz MATHEMATICS LECTURER Work Phone: [place] [address]Avzecohsgf08-82-3660 10:26-0400Respiratory rate20 /minLisa Aichholz MATHEMATICS LECTURER Work Phone: [place] [address]Tqqzitrbrl38-35-9888 10:26-1395NiU5% (BldA) [Mass fraction]96 %La Aichholz MATHEMATICS LECTURER Work Phone: [place] [address]Sjfwtslnmm97-78-7235 10:26-0400Systolic blood mm[Hg]La Aichholz MATHEMATICS LECTURER Work Phone: [facility] CenterXvlfxusnwj49-95-6560 10:08-0400Body mass index (BMI) [Ratio]25.05 kg/m2Lisa Aichholz MATHEMATICS LECTURER Work Phone: [facility] CenterTwsvolrixt27-09-8608 10:08-0400Body temperature 98.1 [degF]La Aichholz MATHEMATICS LECTURER Work Phone: [facility] CenterWixrqisqti00-51-9995 10:08-0400Body govsec50.14 kgLisa Aichholz MATHEMATICS LECTURER Work Phone: [facility] CenterEgyunyknvf55-96-4404 10:08-0400Diastolic blood cizgrnkb80 mm[Hg]La Aichholz MATHEMATICS LECTURER Work Phone: [place] [address]Nrrktpbnld65-70-2198 10:08-0400Heart rate80 /min La Aichholz MATHEMATICS LECTURER Work Phone: [place] [address]Icigvflqlz50-95-7959 10:08-0400Respiratory rate20 /minLisa Aichholz MATHEMATICS LECTURER Work Phone: [place] [address]Xeooezfhzx83-57-1160 10:08-1339MhQ0% (BldA) [Mass fraction]97 %La Aichholz MATHEMATICS LECTURER Work Phone: [facility] HealthcareComment on above:with 3L of 02 on 02-06-2025 10:08-0400Systolic blood fmcevdzj520 mm[Hg]La Pack MATHEMATICS LECTURER Work Phone: [facility] CenterXuzvznmexf42-14-8774 11:44-0400Body cm La Pack MATHEMATICS LECTURER Work Phone: [facility] CenterXvwlhzqwti51-36-5299 11:44-0400Body mass index (BMI) [Ratio]25.15 kg/m2La Martinezz MATHEMATICS LECTURER Work Phone: [facility] CenterXccuxjzepu25-99-5163 11:44-0400Body temperature 97.81 [degF]La Pack MATHEMATICS LECTURER Work Phone: [facility] CenterHfpmuthibx83-53-7411 11:44-0400Body bohcxk01.41 kgLa Martinezz MATHEMATICS LECTURER Work Phone: [facility] CenterHapgzjvfmf78-81-1808 11:44-0400Diastolic blood uhqzfwce45 mm[Hg]La Martinezz MATHEMATICS LECTURER Work Phone: [facility] CenterCmhgcappsz82-70-7559 11:44-0400Heart rate98 /min La Pack MATHEMATICS LECTURER Work Phone: [facility] CenterBeverrgnme56-54-4542 11:44-0400Respiratory rate24 /minLa Pack MATHEMATICS LECTURER Work Phone: [place] [address]Umabecbydv61-08-8965 11:44-0187HdJ5% (BldA) [Mass fraction]97 %La Martinezz MATHEMATICS LECTURER Work Phone: [place] [address]Bxiwlkjevt59-38-4589 11:44-0400Systolic blood dgythtti440 mm[Hg]La Martinezz MATHEMATICS LECTURER Work Phone: [facility] CenterZcbxvxxnil45-32-2678 09:30-0500Body cm Ian Soares MD Work Phone: [facility] CenterHrafxmhizd03-26-7531 09:30-0500Body mass index (BMI) [Ratio]25.15 kg/m2Ian Soares MD Work Phone: [facility] CenterUuenlqehpx79-99-9180 09:30-0500Body temperature 96.6 [degF]Ian Soares MD Work Phone: [facility] CenterPwwspijnog68-96-5156 09:30-0500Body fzozxp09.41 kgIan Soares MD Work Phone: [facility] CenterFrlznenvxa47-27-7242 09:30-0500Diastolic blood abrzpopr95 mm[Hg]Ian Soares MD Work Phone: [facility] CenterEfhbjoioqt65-04-6094 09:30-0500Heart rate85 /min Ian Soares MD Work Phone: [facility] CenterPvknnbssit97-94-1514 09:30-0500Respiratory rate22 /minIan Soares MD Work Phone: [facility] CenterCmhebailyc39-90-9530 09:30-0396GrV6% (BldA) [Mass fraction]97 %Ian Soares MD Work Phone: [facility] CenterZtdjovliyl29-78-2710 09:30-0500Systolic blood ojpyftki787 mm[Hg]Ian Soares MD Work Phone: [facility] CenterXzpokumdqx95-24-3530 09:09-0500Body yhavfg604.02 cmBrnelsy Cardoso MATHEMATICS LECTURER-C Work Phone: 1(366)961-[address] [place], [place] [address]002-21-2025 09:09-0500 Body mass index (BMI) [Ratio]24.7 kg/x3Guncnije Cardoso MATHEMATICS LECTURER-C Work Phone: 6(949)674-[address] [place], [place] [address]35002-21-2025 09:09-0500 Body dnfvuo38.5 kgBrnelsy Cardoso MATHEMATICS LECTURER-C Work Phone: 1(123)831-[address] [place], [place] [address]35002-21-2025 09:09-0500 Diastolic blood pzyliiod93 mm[Hg]Daniel Cardoso MATHEMATICS LECTURER-C Work Phone: [facility]02-21-2025 09:09-0500 Heart rate82 /minBrittany Cardoso MATHEMATICS LECTURER-C Work Phone: [facility]02-21-2025 09:09-0500 Inhaled oxygen flow rate3 L/minBrittany Cardoso MATHEMATICS LECTURER-C Work Phone: [facility]02-21-2025 09:09-0500 Respiratory rate18 /minBrittany Cardoso MATHEMATICS LECTURER-C Work Phone: [facility]02-21-2025 09:09-0500 SaO2% (BldA) [Mass fraction]97 %Daniel Cardoso MATHEMATICS LECTURER-C Work Phone: [facility]02-21-2025 09:09-0500 Systolic blood wgultxwa954 mm[Hg]Daniel Silvazpatrick MATHEMATICS LECTURER-C Work Phone: [facility]02-18-2025 13:20-0500 Body vykzcjhhqxm29.1 [degF]Stephen Furlong DO Work Phone: [facility]02-18-2025 13:20-0500Diastolic blood nfzskorr88 mm[Hg]Stephen Furlong DO Work Phone: [facility] [employer] Dkuvkc07-05-8790 13:20-0500Heart rate 73 /minDennis Furlong DO Work Phone: [facility] [employer] Rvywzs52-60-7779 13:20-0500 Respiratory rate16 /minDennis Furlong DO Work Phone: [facility]02-18-2025 13:20-5553ZkZ6% (BldA) [Mass fraction]96 %Stephen Furlong DO Work Phone: [facility]02-18-2025 13:20-0500Systolic blood mwcutulp000 mm[Hg]Stephen Jassolong DO Work Phone: [facility]02-14-2025 14:56-0500Body wntrdnlexre95.2 [degF]Stephen Jassolong DO Work Phone: [facility]02-14-2025 14:56-0500Diastolic blood rvikjnlo48 mm[Hg]Stephenifrah Jassolong DO Work Phone: [facility]02-14-2025 14:56-0500Heart rate 79 /Alyis Romerolong DO Work Phone: [facility]02-14-2025 14:56-0500 Respiratory rate18 /Alyis Romerolong DO Work Phone: [facility]02-14-2025 14:56-0355WzN1% (BldA) [Mass fraction]96 %Stephen Jassolong DO Work Phone: [facility]02-14-2025 14:56-0500Systolic blood foiitqbb089 mm[Hg]Stephen Jassolong DO Work Phone: [facility] [employer] Qywswk05-02-4846 17:23-0500Body mass index (BMI) [Ratio]24.03 kg/f5Chhpvj Furlong DO Work Phone: [facility]02-11-2025 17:23-0500Body sglzadmhucl11.9 [degF]Stephen Jassolong DO Work Phone: [facility]02-11-2025 17:23-0500Body hcabqw15.5 kgDenifrah Jassolong DO Work Phone: [facility]02-11-2025 17:23-0500Diastolic blood hpzafydh78 mm[Hg]Stephen Jassolong DO Work Phone: [facility]02-11-2025 17:23-0500Heart rate 94 /minDennis Furlong DO Work Phone: [facility] CenterXplornet Communications Kcpcga24-24-0280 17:23-0500 Respiratory rate18 /minDennis Furlong DO Work Phone: [facility]Ther[facility] Fgaoii48-53-9922 17:23-5191JbJ0% (BldA) [Mass fraction]93 %Stephen Furlong DO Work Phone: [facility] [employer] Yktlok06-07-4659 17:23-0500Systolic blood aglghudm085 mm[Hg]Stephen Furlong DO Work Phone: [facility] CenterPorphyrio02-04-2025 19:16-0500Body latmwu097.6 cmDennis Furlong DO Work Phone: [facility] CenterXplornet Communications Rxwzgu03-75-5789 19:16-0500Body hymojjpavtr88.81 [degF]Stephen Furlong DO Work Phone: [facility] [employer] Kkswkc81-51-3618 19:16-0500Diastolic blood mxckzfos99 mm[Hg]Stephen Furlong DO Work Phone: [facility] CenterPorphyrio02-04-2025 19:16-0500Heart rate 82 /minDennis Furlong DO Work Phone: [facility]Ther[facility] Bwalik47-51-8614 19:16-0500 Respiratory rate18 /minDennis Furlong DO Work Phone: [facility] [employer] Xlboko42-08-1800 19:16-5507JmM4% (BldA) [Mass fraction]92 %Stephen Furlong DO Work Phone: [facility] CenterXplornet Communications Uiiqwr84-08-0738 19:16-0500Systolic blood fbmoyxhd884 mm[Hg]Stephen Furlong DO Work Phone: [facility]Ther[facility] Fanovw90-20-6154 14:05-0500Heart rate 91 /Geo Cardoso MATHEMATICS LECTURER-C Work Phone: 1(419)547-[address] [place], [place] [address]001-31-2025 14:05-0500 Respiratory rate18 /minBrittany Cardoso MATHEMATICS LECTURER-C Work Phone: 1(088)[address]01-31-2025 09:25-0500 Body svighmmpamj25.5 [degF]Daniel Cardoso MATHEMATICS LECTURER-C Work Phone: 1(915)[address]01-31-2025 09:25-0500 Diastolic blood ixdojqdg31 mm[Hg]Daniel Cardoso MATHEMATICS LECTURER-C Work Phone: 1(557)[address]01-31-2025 09:25-0500 Inhaled oxygen flow rate4 L/minBrittany Cardoso MATHEMATICS LECTURER-C Work Phone: 1(334)[address]01-31-2025 09:25-0500 SaO2% (BldA) [Mass fraction]90 %Daniel Cardoso MATHEMATICS LECTURER-C Work Phone: 1(359)[address]01-31-2025 09:25-0500 Systolic blood mubowzhi538 mm[Hg]Daniel Cardoso MATHEMATICS LECTURER-C Work Phone: 1(159)[address]01-31-2025 06:00-0500 Body lfuyga04.3 kgBrittany Cardoso MATHEMATICS LECTURER-C Work Phone: 1(885)[address]01-30-2025 17:05-0500 Body .56 cmBrittany Cardoso MATHEMATICS LECTURER-C Work Phone: 1(323)724-[address] [place], [place] [address]35001-28-2025 12:00-0500 Inhaled oxygen uoyxpiatgwgge79 %Daniel Cardoso MATHEMATICS LECTURER-C Work Phone: 1(894)[address]11-07-2024 09:43-0500 Body mxqqaz629 cmBrittany Cardoso MATHEMATICS LECTURER Work Phone: [facility] CenterCyqxblgtzx33-18-0172 09:43-0500Body mass index (BMI) [Ratio]24.13 kg/g6LvwxlwbuDaniel Staffordk MATHEMATICS LECTURER Work Phone: [facility] CenterNlczlbshnj92-57-3488 09:43-0500Body temperature 96.69 [degF]Daniel Cardoso MATHEMATICS LECTURER Work Phone: [facility] CenterEhyivvtaie82-15-2997 09:43-0500Body wwenbi24.78 kgDaniel Staffordk MATHEMATICS LECTURER Work Phone: [facility] CenterUqkopyasfr76-90-6551 09:43-0500Diastolic blood ecfxryho51 mm[Hg]Daniel Staffordk MATHEMATICS LECTURER Work Phone: [facility] John'sKnnkhthnjf26-31-6929 09:43-0500Heart rate85 /min Daniel Staffordk MATHEMATICS LECTURER Work Phone: [facility] CenterMlfbmodtid84-78-4311 09:43-0500Respiratory rate18 /minDaniel Staffordk MATHEMATICS LECTURER Work Phone: [facility] CenterJjijuvrayp91-98-1325 09:43-1423XuM5% (BldA) [Mass fraction]94 %Daniel Staffordk MATHEMATICS LECTURER Work Phone: [facility]Mer[facility] John'sUwutivsnzy75-71-2866 09:43-0500Systolic blood mdnwmymz963 mm[Hg]Daniel Staffordk MATHEMATICS LECTURER Work Phone: [facility] Encounters Encounter DateEncounter TypeCare ProviderFacilityStart: 09-12-2025 End: 16-45-4978qvgxcnewtaZyba J Aichholz NP-C Work Phone: -[facility] ClydeStart: 09-12-2025 End: 04-61-6703Knqljox encounter procedureLisa Heath Pack MATHEMATICS LECTURER-C-[facility] Work Phone: Start: 08-58-8233Wyw-patient / Non-visitLisa Heath Pack NP-C-[facility] Work Phone: Start: 08-22-2025 End: 89-36-3389fiuqrteumePqjy Heath Crossfariba MATHEMATICS LECTURER-C Work Phone: [facility] Work Phone: Start: 08-22-2025 End: 97-28-9119Tdwjdtj encounter procedureLisa Heath Pack MATHEMATICS LECTURER-C-[facility] Work Phone: Start: 21-36-9806Hyt-patient / Non-visitLisa Heath Pack MATHEMATICS LECTURER-C-[facility] Work Phone: Start: 07-31-2025 End: 54-23-7848wmhabpocpoVbqq J Americafariba MATHEMATICS LECTURER-C Work Phone: [facility] Work Phone: Start: 07-31-2025 End: 07-55-3756Omugkdy encounter procedureLisa Heath Huntercarmenfariba MATHEMATICS LECTURER-C-[facility] Work Phone: Start: 11-65-6316Xxmqgom encounter procedureLi Ramone MATHEMATICS LECTURER-C Work Phone: [facility]art: 07-10-2025 End: 67-60-3245Elkdpfaul Result EncounterLisa Dalehholz MATHEMATICS LECTURER Work Phone: [facility] External Department UnsolicitedStart: 07-10-2025 End: 71-41-6057Xlcjpocaq Result EncounterLisa Dalehholz MATHEMATICS LECTURER Work Phone: [facility] External Department UnsolicitedStart: 06-26-2025 End: 37-94-3411Vjxyez flowsheetLisa Dalehholz MATHEMATICS LECTURER Work Phone: [facility] CWM FMStart: 06-26-2025 End: 75-23-7795Ttzuso flowsheetLisa Dalehholz MATHEMATICS LECTURER Work Phone: [facility] FMStart: 06-26-2025 End: 58-42-0539Bahqhi outpatient visit 25 minutesLisa Hunterhholz MATHEMATICS LECTURER Work Phone: [facility] C[facility] FMComment on above:Edema of both lower legs (Primary Dx); Primary hypertension ; Chronic obstructive pulmonary disease, unspecified COPD type ([facility]); Type 2 diabetes mellitus without complication, without long-term current use of insulin ([facility]); Cigarette nicotine dependence without complication; Depression, unspecified ; Generalized anxiety disorder ; Cellulitis of left lower extremityStart: 06-26-2025 End: 60-28-8297stbqvupmhsQWOR AICHHOLZNot AvailableStart: 06-13-2025 End: 93-83-0639Suqqew OnlyLa Pack MATHEMATICS LECTURER Work Phone: [facility] FMComment on above:Iron deficiency (Primary Dx); Abnormal CBCStart: 06-07-2025 End: 08-96-6143DjmnltNrep Naderer MD Work Phone: [facility] CWM FMComment on above:Chronic obstructive pulmonary disease, unspecified COPD type ([facility])Start: 06-05-2025 End: 94-90-1439PubqacJljw Aichholz MATHEMATICS LECTURER Work Phone: [facility] CWM FMComment on above:Primary hypertension (Primary Dx); Hyperlipidemia, unspecified ; Vitamin D deficiency; Type 2 diabetes mellitus without complications ([facility]); Gastro-esophageal reflux disease without esophagitis; Depression, unspecifiedStart: 05-06-2025 End: 63-31-0559AcgoiqLkka Aichholz MATHEMATICS LECTURER Work Phone: [facility] CWM FMComment on above:Asthma with COPD (chronic obstructive pulmonary disease) ([facility])Start: 55-07-8232Gvamluw encounter procedure La Pack MATHEMATICS LECTURER Work Phone: [facility] HealthcareStart: 04-01-2025 End: 64-77-8504BkzwoaBbsx Aichholz MATHEMATICS LECTURER Work Phone: [facility] CWM FMComment on above:Depression, unspecified ([facility]/HCC)Osteoarthritis, unspecified osteoarthritis type, unspecified site (Primary Dx)Start: 03-25-2025 End: 99-62-6392Sloonbjez Result EncounterLisa Aichholz MATHEMATICS LECTURER Work Phone: [facility] External Department UnsolicitedStart: 03-25-2025 End: 55-40-4508Outzjbaxr Result EncounterLisa Aichholz MATHEMATICS LECTURER Work Phone: [facility] External Department UnsolicitedStart: 03-25-2025 End: 66-77-8932Oyihkz OnlyLisa Dalehholz MATHEMATICS LECTURER Work Phone: [place] [facility] FMComment on above:Acquired hypothyroidism (CMS/HCC) (Primary Dx)Start: 02-25-2025 End: 45-60-2807MwpmdpPaef Naderer MD Work Phone: [facility] CWM FMComment on above:Asthma with COPD (chronic obstructive pulmonary disease) (CMS/HCC); Chronic obstructive pulmonary disease, unspecified COPD type (CMS/HCC)Start: 02-21-2025 End: 46-74-5534Rphwnwnnz Result EncounterGeneric External Data ProviderNOMS External Department UnsolicitedStart: 02-21-2025 End: 10-07-0587Olgoghfdd Result EncounterGeneric External Data ProviderNOMS External Department UnsolicitedStart: 02-20-2025 End: 84-31-5633RluawjAoyo Aichholz MATHEMATICS LECTURER Work Phone: [facility] CWM FMComment on above:Iron deficiency anemia due to chronic blood lossStart: 02-19-2025 End: 79-56-8611Kjcwee OnlyLisa Dalehholz MATHEMATICS LECTURER Work Phone: [facility] CWM FMComment on above:Elevated TSHStart: 02-18-2025 End: 16-71-2436Guozrfsfj Result EncounterLisa Aichholz MATHEMATICS LECTURER Work Phone: [facility] External Department UnsolicitedStart: 02-18-2025 End: 40-27-3690Kmlswjsym Result EncounterLisa Aichholz MATHEMATICS LECTURER Work Phone: [facility] External Department UnsolicitedStart: 02-06-2025 End: 11-84-4945Toeuca outpatient visit 25 minutesLisa Pack MATHEMATICS LECTURER Work Phone: noMS CWM FMComment on above:Type [...] Acute hypoxic respiratory failure (CMS/HCC)Start: 02-06-2025 End: 86-48-5239auzrrgnfaxHZOJ DALEHHOLZNot AvailableStart: 01-23-2025 End: 71-48-7055Vlahqh outpatient visit 25 minutesLisa Pack MATHEMATICS LECTURER Work Phone: [facility] CWM FMComment on above:Scalp laceration, sequela (Primary Dx); Cigarette nicotine dependence without complication; COPD exacerbation (CMS/HCC)Start: 01-23-2025 End: 90-85-5574iroyxougsaLMNV DALEHHOLZNot AvailableStart: 01-14-2025 End: 72-08-7822Lmhxpayanelis Soares MD Work Phone: [facility] CWM FMStart: 01-14-2025 End: 93-20-7417Fafthibeth Soares MD Work Phone: [facility] CWM FMStart: 01-14-2025 End: 22-80-9858Fmzvgflekkio care manage srvc 14 day dischargeIan Soares MD Work Phone: [facility] CWM FMComment on above:Influenza A (Primary Dx); Chronic obstructive pulmonary disease, unspecified COPD type (CMS/HCC); Acute hypoxic respiratory failure (CMS/HCC); Type 2 diabetes mellitus without complication, without long-term current use of insulin (CMS/HCC); Primary hypertension (CMS/HCC); Benign neoplasm of cranial nerves (CMS/HCC); Type 2 diabetes mellitus with diabetic polyneuropathy ([facility]/HCC)Start: 01-14-2025 End: 14-14-7289ocrtgdwzzaIHLT ANGLERNot AvailableStart: 01-04-2025 End: 30-79-9252ysaqzkpykaOzeifnvw Fer Cardoso MATHEMATICS LECTURER-C Work Phone: [facility] Work Phone: Start: 01-04-2025 End: 06-98-9548Nvkxoyl encounter procedureDaniel Cardoso MATHEMATICS LECTURER-C Work Phone: [facility] Work Phone: Start: 01-01-2025 End: 94-24-0032utuzicndefYoeqjw G Furlong DO Work Phone: [facility] - Family MedicineComment on above:Acute hypoxic respiratory failure ([facility]) (Primary Dx); Aspiration pneumonia, unspecified aspiration pneumonia type, unspecified laterality, unspecified part of lung ([facility]CC); Chronic obstructive pulmonary disease, unspecified COPD type ([facility]); Influenza A; Type 2 diabetes mellitus without complication, without long-term current use of insulin ([facility]); Other abnormalities of gait and mobility; AnxietyStart: 12-28-2024 End: 90-15-9037eulicqryktBeltbh Elfego Macias DO Work Phone: [facility] Internal Medicine - Family MedicineComment on above:Acute hypoxic respiratory failure ([facility]) (Primary Dx); Chronic obstructive pulmonary disease, unspecified COPD type ([facility]); Influenza A; Other abnormalities of gait and mobilityStart: 12-25-2024 End: 33-99-2564jjeajxygwpOraflt Elfego Jassolong DO Work Phone: [facility] Internal Medicine - Family MedicineComment on above:Chronic obstructive pulmonary disease, unspecified COPD type ([facility]) (Primary Dx); Influenza A; Other abnormalities of gait and mobility; Anxiety; Cigarette smokerStart: 12-18-2024 End: 18-82-1996hrfzammbzxZerdmo G Romerolong DO Work Phone: [facility] - Family MedicineComment on above:Acute hypoxic respiratory failure ([facility]) (Primary Dx); Chronic obstructive pulmonary disease, unspecified COPD type ([facility]); Influenza A; Aspiration pneumonia, unspecified aspiration pneumonia type, unspecified laterality, unspecified part of lung ([facility]); Depression, unspecified depression type; Cigarette smoker; Type 2 diabetes mellitus without complication, without long-term current use of insulin ([facility]); AnxietyStart: 90-14-0302Xgk-patient / Non-visitBrittany Cardoso MATHEMATICS LECTURER-C Work Phone: [facility] Work Phone: Start: 57-81-8072Vex-patient / Non-visitBrittany Cardoso MATHEMATICS LECTURER-C Work Phone: [facility] Work Phone: Start: 18-34-3644Zod-patient / Non-visitBrittany Cardoso MATHEMATICS LECTURER-C Work Phone: [facility] Work Phone: Start: 74-73-1375Hva-patient / Non-visitBrittany Cardoso MATHEMATICS LECTURER-C Work Phone: [facility] Work Phone: Start: 12-09-2024 End: 52-74-0842Nyyrixtzav and management of inpatientBrittany Cardoso MATHEMATICS LECTURER-C Work Phone: [facility] [employer] Work Phone: Start: 12-09-2024 End: 64-10-4224hmedgujrinUYETHVW PROVIDERFacility:METROHealthStart: 12-09-2024 End: 07-29-1036Wnltmscyz Result EncounterGeneric External Data ProviderNOMS External Department UnsolicitedStart: 12-09-2024 End: 12-33-4804Kfxvdvxtj Result EncounterGeneric External Data ProviderNOMS External Department UnsolicitedStart: 12-06-2024 End: 56-23-7151NhhghiMsrw Howard MANOMS CWM FMComment on above:Iron deficiency anemia due to chronic blood lossStart: 11-27-2024 End: 16-28-0198SvmoekYyoz Wayne VASQUEZ CWM FMComment on above:Asthma with COPD (chronic obstructive pulmonary disease) ([facility])Start: 11-12-2024 End: 89-16-3696OwisluLgprandq Cardoso MATHEMATICS LECTURER Work Phone: [facility] C[facility] FMComment on above:Iron deficiency anemia due to chronic blood lossStart: 10-22-2024 End: 00-01-8563AtazheHlvhlqaf Cardoso MATHEMATICS LECTURER Work Phone: [facility] CWM FMComment on above:Gastro-esophageal reflux disease without esophagitisStart: 10-22-2024 End: 44-73-1198KrvgpsZjpvkznt Cardoso MATHEMATICS LECTURER Work Phone: [facility] CWM FMComment on above:Depression, unspecified ([facility] [facility])Start: 09-20-2024 End: 78-48-4506Sfbtsx flowsheetBrittany Cardoso MATHEMATICS LECTURER Work Phone: NOJU CWM FMStart: 09-20-2024 End: 63-79-5968Msmdsb flowsheetBrittany Cardoso MATHEMATICS LECTURER Work Phone: NOMS CWM FMStart: 09-20-2024 End: 22-01-8320Qnebxk outpatient visit 15 minutesBrittany Cardoso MATHEMATICS LECTURER Work Phone: NOMS CWM FMComment on above:Primary hypertension ([facility]) (Primary Dx); Type 2 diabetes mellitus without complication, without long-term current use of insulin ([facility]); Other hyperlipidemia ([facility]); Asthma with COPD (chronic obstructive pulmonary disease) ([facility]); Non-recurrent acute serous otitis media of left earStart: 09-20-2024 End: 39-18-4459xpzdhqfdpfPDDEYUUVAna Paula Carroll AvailableStart: 09-11-2024 End: 11-93-3397VjprvlEjsvinkdConchis Cardoso MATHEMATICS LECTURER Work Phone: noms CWM FMComment on above:Type 2 diabetes mellitus without complications (CMS/HCC)Hyperlipidemia, unspecified (CMS/HCC)Other bursitis of elbow, left elbowStart: 09-03-2024 End: 10-89-3998SowrxhWkymwfm EllykinsNOMS CWM FMComment on above:Asthma with COPD (chronic obstructive pulmonary disease) (CMS/HCC)Start: 08-27-2024 End: 73-91-6890IoirnpDwclkljrConchis Cardoso MATHEMATICS LECTURER Work Phone: noms CWM FMComment on above:Asthma with COPD (chronic obstructive pulmonary disease) (CMS/HCC)Start: 08-01-2024 End: 05-98-3505ZbmvprBjsrjs Chanel MANOMS CWM IMComment on above:Hyperlipidemia, unspecified (CMS/HCC); Other bursitis of elbow, left elbow; Depression, unspecified (CMS/HCC); Type 2 diabetes mellitus without complications (CMS/HCC)Start: 07-25-2024 End: 02-46-2732XuweplTirvlv Chanel MANOMS CWM IMComment on above:Other bursitis of elbow, left elbowStart: 07-23-2024 End: 13-61-6623EplmfbUvheaujcConchis Cardoso MATHEMATICS LECTURER Work Phone: noms CWM FMComment on above:Type 2 diabetes mellitus without complications (CMS/HCC); Hyperlipidemia, unspecified (CMS/HCC)Start: 07-07-2024 End: 48-30-8933Bwpnjmani Cardoso MATHEMATICS LECTURER Work Phone: noms CWM FMComment on above:Iron deficiency anemia due to chronic blood loss (Primary Dx)Start: 01-16-2024 End: 32-50-6806Rptourvbocriselda Sánchez MD Work Phone: noms External Department UnsolicitedStart: 01-16-2024 End: 19-42-3268Ewfpwzpbt Result EncounterSservando Sánchez MD Work Phone: noms External Department UnsolicitedStart: 12-15-2023 End: 29-45-4199sdtmodzodbFoskutc LiamFacility:FTMCStart: 12-15-2023 End: 30-76-6701Laivbpb encounter procedureZamzam Wheeler [facility] Start: 12-12-2023 End: 62-63-7921Mbfsyvcnk Result EncounterSservando Sánchez MD Work Phone: noms External Department UnsolicitedStart: 12-12-2023 End: 13-77-5872Hyynsnisb Result EncounterSservando Sánchez MD Work Phone: noms External Department UnsolicitedStart: 11-30-2023 End: 16-36-7326ehqnkjefcsPdpllvg LiamFacility:FTMCStart: 10-28-2023 End: 07-86-1812Gfg-admission assessmentZamzam Wheeler [facility] Start: 01-05-2023 End: 36-04-3511usvttrrxxnIR GIANNA TARA AMBURNFacility:L4Mgncb: 04-26-2022 End: 28-65-0347penaaldxoeAH GIANNA TARA AMBURNFacility:E2Uslgb: 04-08-2022 End: 39-09-0876ptljeiytweWB GIANNA TARA AMBURNFacility:H1 Procedures DateProcedureProcedure DetailPerforming ClinicianStart: 32-33-4864WPY CBC WITH AUTO DIFFLisa Aicrosalee MATHEMATICS LECTURER Work Phone: Start: 14-13-6929DDT THYROID STIM HORMONELisa Ramone MATHEMATICS LECTURER Work Phone: start: 95-15-7636KZR THYROXINE (T4) FREELa Pack MATHEMATICS LECTURER Work Phone: Start: 48-94-4448GY ORLY PERF SPECT REST STRGeneric External Data ProviderStart: 32-43-3934KQ TOMOSYNTHESIS SCREENING BILisa Ramoen MATHEMATICS LECTURER Work Phone: [phone]: 98-85-8694JOQ CBC WITH AUTO DIFFLisa Ramone MATHEMATICS LECTURER Work Phone: [phone]: 38-52-5524GusugkpbhhbGliw Ramone MATHEMATICS LECTURER Work Phone: Start: 86-71-4577Idqkk chest X-rayBrittany Cardoso MATHEMATICS LECTURER-C Work Phone: Start: 51-58-9059Mhbqy chest X-rayBrittany Cardoso MATHEMATICS LECTURER-C Work Phone: Start: 30-56-1515Rhukd X-ray abdomenBrittany Cardoso MATHEMATICS LECTURER-C Work Phone: Start: 23-28-6229Nphui chest X-rayBrittany Cardoso MATHEMATICS LECTURER-C Work Phone: Start: 78-30-3700ONVUJ CULTURE 2Generic External Data ProviderStart: 59-29-1508Irszbaj microbial cultureBrittany Cardoso MATHEMATICS LECTURER-C Work Phone: Start: 14-56-1902Twknffbh identified in Blood by CultureBrittany Cardoso MATHEMATICS LECTURER-C Work Phone: Start: 98-46-0218Rsoc stain microscopyBrittany Cardoso MATHEMATICS LECTURER-C Work Phone: Start: 97-23-2969Hckuxdtgja glycosylated a5kAyarmilm Cardoso MATHEMATICS LECTURER Work Phone: Start: 15-31-0595OD TOMOSYNTHESIS SCREENING Rosalina Sánchez MD Work Phone: Start: 07-60-2684YlbqjpxhqxhNdltspck Walker GARZA Work Phone: Start: 10-39-0534BZ PULMONARY FUNCTION TESTSservando Sánchez MD Work Phone: Plan of Treatment DateCare ActivityDetailAuthorStart: 70-19-7899Secwpuby screeningDiabetes: Retinopathy ScreeningNONH HealthcareStart: 06-25-2026Medicare Annual Wellness (AWV)Medicare Annual Wellness (AWV)[facility] HealthcareStart: 21-93-4291Yvlbaltdc for malignant neoplasm of breastMammogramNOMS HealthcareStart: 53-74-6934Ttepv screening for proteinDiabetes: Urine Protein ScreeningNONH HealthcareStart: 33-39-7661Uxeckskvy for malignant neoplasm of colonNOMS HealthcareStart: 02-18-5065Ogyhgdw referralSt. Mary'S Medical Center Work Phone: Start: 29-44-7181Krptgbhydz A1c measurementDiabetes: Hemoglobin Z3XKADH HealthcareStart: 07-31-2025 End: 88-94-4266Lgonygc encounter ymkjunmuo27/17/2025 11:00 AM EDT Office Visit [facility] [address] [place] [address] La Pack NP [address] [place] [address] [facility] FMStart: 01-56-3817ISGJY-19 Vaccine ( season)COVID-19 Vaccine ( season)[facility] HealthcareStart: 07-15-2025 Influenza vaccinationNONH HealthcareStart: 06-26-2025 End: 68-72-0773Uugjl metabolic 1998 panel - Serum or PlasmaBasic metabolic panel Lab Routine Primary hypertension Type 2 diabetes mellitus without complication, without long-term current use of insulin (HCC) Edema of both lower legs Expected: 06/26/2025 (Approximate), Expires: 06/26/2026NONH Healthcare Work Phone: Comment on above:Expected: 06/26/2025 (Approximate), Expires: 06/26/2026Start: 06-26-2025 End: 27-02-8804Rqyhhdo encounter procedureNOMS [facility] FMComment on above:Primary hypertension (Primary Dx); Chronic obstructive pulmonary disease, unspecified COPD type (HCC); Type 2 diabetes mellitus without complication, without long-term current use of insulin (HCC); Cigarette nicotine dependence without complicationStart: 91-10-7233Dqnlvduea vaccinationInfluenza Vaccine (#1)NOMS HealthcareComment on above:Postponed from 07/15/2024 (Patient Refused)Start: 05-07-2025 End: 25-60-7812Dtxesni encounter /24/2025 10:00 AM EDT Office Visit [facility] FM [address] [place] [address] La Pack NP [address] [place] [address] [facility] CW FMStart: 04-16-2025 End: 79-74-9508Tpwoyoi encounter procedureNOMS [facility] FMStart: 03-25-2025 End: 44-37-4462Uvllcnagkci [Units/volume] in Serum or PlasmaTSH Lab Routine Acquired hypothyroidism (CMS/HCC) Expected: 03/25/2025 (Approximate), Expires: 03/25/2026NONH Healthcare Work Phone: Comment on above:Expected: 03/25/2025 (Approximate), Expires: 03/25/2026Start: 03-25-2025 End: 30-12-2488Snxppyygl (T4) free [Mass/volume] in Serum or PlasmaT4, free Lab Routine Acquired hypothyroidism (CMS/HCC) Expected: 03/25/2025 (Approximate), Expires:03/25/2026NONH HealthcareComment on above:Expected: 03/25/2025 (Approximate), Expires: 03/25/2026Start: 03-22-2025 End: 78-08-7861TQW W Auto Differential panel - BloodCBC and differential Lab Routine Iron deficiency anemia due to chronic blood loss Expected: 03/22/2025 (Approximate), Expires: 02/20/2026[facility] HealthcareComment on above:Expected: 03/22/2025 (Approximate), Expires: 02/20/2026Start: 03-22-2025 End: 67-84-4712Nuzd and Iron binding capacity panel - Serum or PlasmaIron level Lab Routine Iron deficiency anemia due to chronic blood loss Expected: 03/22/2025 (Approximate), Expires: 02/20/2026NONH Healthcare Work Phone: Comment on above:Expected: 03/22/2025 (Approximate), Expires: 02/20/2026Start: 03-21-2025 End: 46-83-7175Pnwevqerjlt [Units/volume] in Serum or PlasmaTSH Lab Routine Elevated TSH Expected: 03/21/2025 (Approximate), Expires: 02/19/2026[facility] Work Phone: Comment on above:Expected: 03/21/2025 (Approximate), Expires: 02/19/2026Start: 03-21-2025 End: 88-45-6883Qmacanqtg (T4) free [Mass/volume] in Serum or PlasmaT4, free Lab Routine Elevated TSH Expected: 03/21/2025 (Approximate), Expires: 02/19/2026[facility] HealthcareComment on above:Expected: 03/21/2025 (Approximate), Expires: 02/19/2026Start: 58-56-9058Yfwcppqzxw A1c measurementDiabetes: Hemoglobin A1C [facility] HealthcareStart: 50-76-8902Wnkenpde screeningDiabetes: Retinopathy ScreeningK[facility] HealthcareStart: 04-25-2025Medicare Annual Wellness (AWV)Medicare Annual Wellness (AWV)[facility] HealthcareStart: 02-06-2025 End: 769214-brfiqovtsabckg D3 [Mass/volume] in Serum or PlasmaVitamin D 25 hydroxy Lab Routine Vitamin D deficiency Expected: 02/06/2025 (Approximate), Expires: 02/06/2026[facility] HealthcareComment on above:Expected: 02/06/2025 (Approximate), Expires: 02/06/2026Start: 02-06-2025 End: 02-63-6165LGH W Auto Differential panel - BloodCBC and differential Lab Routine Iron deficiency anemia due to chronic blood loss Expected: 02/06/2025 (Approximate), Expires: 02/06/2026[facility] HealthcareComment on above:Expected: 02/06/2025 (Approximate), Expires: 02/06/2026Start: 02-06-2025 End: 04-33-5031Sgaatonhwcvmx metabolic 2000 panel - Serum or PlasmaComprehensive metabolic panel Lab Routine Primary hypertension (CMS/HCC) Type 2 diabetes mellitus without complication, without long-term current use of insulin (CMS/HCC) Expected: 02/06/2025 (Approximate), Expires: 02/06/2026[facility] Comment on above:Expected: 02/06/2025 (Approximate), Expires: 02/06/2026Start: 02-06-2025 End: 05-66-7946Hmalvjqt [Mass/volume] in Serum or PlasmaFerritin Lab Routine Iron deficiency anemia due to chronic blood loss Expected: 02/06/2025 (Approxim ate), Expires: 02/06/2026[facility] HealthcareComment on above:Expected: 02/06/2025 (Approximate), Expires: 02/06/2026Start: 02-06-2025 End: 86-56-5573Tudezvifrb A1c/Hemoglobin.total in BloodHemoglobin A1c Lab Routine Type 2 diabetes mellitus without complication, without long-term current use of insulin (CMS/HCC) Expected: 02/06/2025 (Approximate), Expires: 02/06/2026 NOMS HealthcareComment on above:Expected: 02/06/2025 (Approximate), Expires: 02/06/2026Start: 02-06-2025 End: 06-49-3386Nrkp + transferrin + TIBCIron + transferrin + TIBC Lab Routine Iron deficiency anemia due to chronic blood loss Expected: 02/06/2025 (Approximate), Expires: 02/06/2026[facility] HealthcareComment on above:Expected: 02/06/2025 (Approximate), Expires: 02/06/2026Start: 02-06-2025 End: 94-87-0809Xment 1996 panel - Serum or PlasmaLipid panel Lab Routine Other hyperlipidemia ([facility]/HCC) Expected: 02/06/2025 (Approximate), Expires:02/06/2026 NOMS HealthcareComment on above:Expected: 02/06/2025 (Approximate), Expires: 02/06/2026Start: 02-06-2025 End: 20-55-4625WX Breast - bilateral ScreeningBilateral screening mammogram Imaging Routine Screening mammogram, encounter for Expected: 02/06/2025 (Approximate), Expires: 04/08/2026[facility] Work Phone: Comment on above:Expected: 02/06/2025 (Approximate), Expires: 04/08/2026Start: 02-06-2025 End: 26-46-8209Itclruistxui/Creatinine panel in random UrineMicroalbumin / creatinine, urine ratio Lab Routine Primary hypertension ([facility]) Type 2 diabetes mellitus without complication, without long-term current use of insulin ([facility]) Expected: 02/06/2025 (Approximate), Expires: 02/06/2026[facility] HealthcareComment on above:Expected: 02/06/2025 (Approximate), Expires: 02/06/2026Start: 02-06-2025 End: 23-24-4131Qmnektnhyvx [Units/volume] in Serum or PlasmaTSH Lab Routine Generalized anxiety disorder ([facility]) Expected: 02/06/2025 (Approximate), Expires:02/06/2026NONH HealthcareComment on above:Expected: 02/06/2025 (Approximate), Expires: 02/06/2026Start: 02-06-2025 End: 78-64-0940Nrfkyiqsph complete panel - UrineUrinalysis with reflex microscopic (clean catch) Lab Routine Primary hypertension ([facility]/HCC) Type 2 d iabetes mellitus without complication, without long-term current use of insulin ([facility]/HCC) Expected:02/06/2025 (Approximate), Expires: 02/06/2026[facility] Comment on above:Expected: 02/06/2025 (Approximate), Expires: 02/06/2026Start: 02-06-2025 End: 24-75-3995Tbrvllv encounter jvgxklomc43/26/2025 10:00 AM EDT Office Visit [facility] [address] [place] [address] La Pack NP [address] [place] [address] [facility] CWM FMStart: 01-31-2025 End: 92-41-8078Hcwwjdf encounter cklfojacb91/20/2025 11:00 AM EDT Office Visit TIA MIRANDA [address] [place] [address] Tashia Polk PA [address] [place] [address] TIA LEOtart: 89-59-1249Vgccznawl for malignant neoplasm of breast MammogramNONH HealthcareStart: 01-14-2025 End: 98-79-4334Dtonxte encounter upcauowyu79/03/2025 9:30 AM EST Office Visit [facility] [address] [place] [address] Ian Soares MD [address] [place] [address] [facility] FMComment on above:ArrivedStart: 30-38-8690Nrqcs screening for proteinDiabetes: Urine Protein ScreeningNONH HealthcareStart: 12-20-2024 End: 05-40-1143Qlzixci encounter pcgjpelkp70/06/2025 10:00 AM EST Office Visit [facility] [address] [place] [address] Daniel Cardoso NP [address] [place] [address] [facility] CWM FMStart: 90-83-4836VcatwasoxAkron Children'S Hospital Start: 07-25-3842Xgxtnxphnxxjjv of prophylactic treatmentSouthview Medical Centertart: 05-99-8218Nauzxrkr to rehabilitation physicianSouthview Medical Centertart: 88-34-1579RgdyjvkxkSouthview Medical Centertart: 17-39-4053JcgxnmoylSouthview Medical Centertart: 18-62-6539Xraxcvsqcanm [facility] Centertart: 19-45-3837Bgkbzanu admissionSouthview Medical Centertart: 91-03-0428Nneopsfz identified in Blood by Culture Blood CultureSouthview Medical Centertart: 94-68-9373Vfukvhewtvf Ventilation, 24-96 Consecutive HoursRespiratory Ventilation, 24-96 Consecutive HoursSouthview Medical Centertart: 62-61-9307Dcbswomkoerw Vaccine: 65+ Years (1 of 2 - PCV)Pneumococcal Vaccine: 65+ Years (1 of 2 - PCV)NOMS HealthcareComment on above:Postponed from 1959 (Other Patient Reasons) Start: 10-10-2024 End: 20-88-6329Kwkucwb encounter yztimcobz88/27/2024 9:20 AM EST Office Visit [facility] [address] [facility] [address] [place] [address] Tashia Polk PA [address] [place] [address] [facility] ROUTEStart: 09-20-2024 End: 81-88-8044Lygonuh encounter procedureNOMS CWM FMComment on above:Arrived Start: 07-18-2024 End: 48-32-9438Wkoqwdd encounter procedureNOMS [place] [facility] ROUTEStart: 05-97-4417Dbonmtrrq vaccinationNONH HealthcareStart: 32-61-6555Qowdjzolxz A1c measurementDiabetes: Hemoglobin D5JDUAZ HealthcareStart: 12-32-5153Ustx Risk ScreeningFall Risk ScreeningBellevue Hospital SystemStart: 2003 Administration of varicella zoster vaccineZoster (Shingles) Vaccine (1 of 2) [employer] Techn[employer]iestart: 07-68-1082TXeX,Tdap and Td Vaccines (1 - Tdap) DTaP,Tdap and Td Vaccines (1 - Tdap)[facility] SystemStart: 1971 Adult BMI ScreeningAdult BMI ScreeningUNC Healthtart: 1971 Diabetic foot examinationDiabetic Foot ExamBellevue Hospital SystemStart: 88-13-9402Kcyzlanrmb ScreeningDepression ScreeningBellevue Hospital SystemStart: 45-20-7099Laxvagi ScreeningTobacco ScreeningBellevue Hospital SystemStart: 10-40-3174KDiD/Tdap/Td Vaccines (1 - Tdap)DTaP/Tdap/Td Vaccines (1 - Tdap)[facility] HealthcareStart: 15-14-0372Fbpxlqyrluzr Vaccine: 65+ Years (1 of 2 - PCV) Pneumococcal Vaccine: 65+ Years (1 of 2 - PCV)[facility] CenterStart: 1953 Glaucoma screeningDiabetic Ophthalmology ExamUNC Healthtart: 93-95-7879Xbblajcsv for malignant neoplasm of colonK[facility] HealthcareStart: 56-60-5001Ifmngj Use: DiabeticStatin Use: DiabeticCherrington HospitalBLOOD CULTURE 2BLOOD CULTURE 2 Lab Routine 12/09/2024 4:21 PM [facility] Comprehensive metabolic 1999 panel - Serum or [facility] HospitalComprehensive metabolic 1999 panel - Serum or [facility] HospitalPatient referralFlower Hospital Work Phone: [facility] Heart TransthoracicNortheast [facility] Immunizations Immunization DateImmunizationNotesCare WepeepdcMhcrkoho95-36-5275Ujivqoklavbh Conjugate PCV 20Lisa Aichholz MATHEMATICS LECTURER Work Phone: [facility] Medical CenterLtdvtdtseq51-23-2622ACOS-PYC-1 (COVID-19) vaccine, mRNA, spike protein, LNP, bivalent, preservative free, 30 mcg/0.3 mL dose, carolyn-sucrose formulationLisa Aichholz MATHEMATICS LECTURER Work Phone: [facility] Medical CenterJqixindnqy43-72-2481Kfigavypo, High-dose Seasonal, Quadrivalent, Preservative FreeTaylorfrancisco Walker MATHEMATICS LECTURER Work Phone: [facility] CenterJrydfkjpts78-40-4428qpsfrjbft virus vaccine, unspecified formulationBrpeterfrancisco Walker MATHEMATICS LECTURER Work Phone: [facility] Payers DatePayer CategoryPayerPolicy [id number] 2025Self-pay 2024Medicare [facility] MEDICARE Member Subscriber Plan / Payer (Effective 2023-Present) Name: Julian Montaño MMember ID: [id number] Relation to Subscriber: Self Name: Julian Montaño Payer ID: [id number] (NAIC) Group ID: [id number] Type: Not on file Address: [address] [place] [id number] 2021Medicare (Managed Care)[employer] [id number] 2016Medicare [id number] [id number] 2.840.1.615874.3.57[id number] 2.840.1.074603.3.57[id number] 2.0.1.428324.3.57[id number] 2.0.1.083024.3.57[id number] 2.0.1.114771.3.57[id number] 2.0.1.601931.3.57[id number] 2.0.1.509676.3.579.2.501717-65-5046Tizgbzn7690981 2.0.1.582045.3.579.2.563071-07-6771Ehthpxz2303780 2.0.1.658124.3.579.[id number] 2..1.824601.3.57[id number] 2.0.1.543[id number] 2.840.1.813078.3.579.2.531 Social History DateTypeDetailFacilityTobacco smoking statusOhioHealth Arthur G.H. Bing, MD, Cancer Centertart: 03-08-2024 End: 79-04-0575Zui Assigned At BirthFemalAultman Hospitaltart: 11-21-2023 End: 42-42-8632Dtjbctr smoking status NHISSmokes tobacco dailyNOMS Healthcare History of tobacco useCigarette SmokerNOMS HealthcareHistory of tobacco use Passive smokerNOMS HealthcareStart: 11-21-2023 End: 58-97-9315Kqtsxuz use and exposureSmokeless tobacco non-userNOMS Healthcare Start: 11-29-2023 End: 20-44-4893Kbdrikehq beverage intakeLifetime non-drinker (finding)[facility] HealthcareStart: 03-08-2024 End: 14-39-4357Vpuhhom of Social functionNOMS HealthcareStart: 54-81-9544Vlhmeaq CommentCaffeine: 2-3 cups per dayNOMS HealthcareStart: 67-03-3746Vbm assigned at birthNot on fileNOMS HealthcareStart: 68-86-7126Tntgxnk smoking status NHIS Unknown if ever smokedTuscarawas Hospital CenterStart: 12-14-2024 End: 52-34-0490OlsLpbmwm (finding)[facility] Medical Centertart: 24-84-3266Yon Assigned At BirthFeCleveland Clinic Hillcrest Hospitaltart: 11-29-2019 End: 71-91-4443Trxsegk smoking status NHISEx-smokerKettering Health Miamis[facility] History of tobacco useCurrent smokerProFlowers Hospital Health SystemStart: 02-19-2021 Alcoholic beverage intakeCurrent non-drinker of alcohol (finding)[facility] SystemStart: 41-54-1939BxanzxtysNgqaahsSAMY Healthcare Medical Equipment Procedure CodeEquipment CodeEquipment Original TextEquipment IdentifierDates [id number]: 11-21-2023 End: each in the morning.[id number]: 11-21-2023 End: each by In Vitro route [id number]: 01-30-2025 End: 01-30-2026 Goals DatePatient GoalDesired Activity/State Functional Status KqdbLilbhagznsPrapckMszxzrhs25-03-2243Jvsuwacmbj statusPatient at Baseline [facility] Work Phone: [phone] 382-513404830539-85-2530Yyzeypd Health Questionnaire 2 item (PHQ-2) [Reported][facility] Mental Status TaleKfuslhlwlyYhimuzXhsqvsey64-57-0044Mbpbmlcle functionCognitive Status Patient at BaselineFlower Hospital Work Phone: Clinical Notes 09-11-2024 to 07-31-2025 Note Date & VslyVslwCibnusti06-75-2273 Evaluation note* Diagnosis Onset Date Resolution Status Admit Date Edema of both lower extremities acuteSeptember 2024 10:36amElevated TSHacuteSeptember 2024 10:36am Generalized anxiety disorderacuteSeptember 2024 10:36amIron deficiency anemia due to chronic blood lossacuteSept2024 10:36amRecurrent major depressive disorder, in full remissionacuteSept2024 10:36amEdema of both lower extremitiesacuteOctober 2024 8:52amIron deficiency anemia due to chronic blood lossacuteOctober 2024 8:52am [facility] Work Phone: [phone] 275-644009-17-2025 Evaluation note* Diagnosis Onset Date Resolution Status [...] with complicationacuteOctober 2024 1:01pmPrimary hypertensionacuteOctober 2024 1:01pm [facility] Work Phone: [phone] 206-254308-13-2025 History of Present illness Narrative* La Pack [...] usually avgs around 140-150s * La Ramone, MATHEMATICS LECTURER - 06/26/2025 10:30 AM EDT Images from [...] cholecalciferol (VITAMIN D-3) 50 mcg, Oral, Daily Xtgxihqydrq-Pjtehjoxw-Cfwrjy (Trelegy Ellipta) 200-62.5-25 MCG/ACT aerosol powder 1 Inhalation, Inhalation, Daily Kqtlssvmrgb-Rpiwmfhtn-Tclztv (Trelegy Ellipta) 200-62.5-25 MCG/ACT aerosol powder 1 [...] without long-term current use of insulin ([facility]) Check blood sugars daily, notify if [...] dependence without complication Has not smoked since [employer] Generalized anxiety disorder Will increase dose of [...] dependence without complication Has not smoked since [employer] * La Pack NP - 06/26/2025 5:02 [...] Current meds: albuterol, trelegy documented in this encounterN[facility] [id number] Instructions* Patient Instructions* La Pack NP - 06/26/2025 10:30 AM EDT For your anxiety: we are going to increase sertraline to 100mg pill once a day. Also adding buspar 5mg twice a day for anxiety Add antibiotic for leg cephalexin twice for 10 days, and water pill for swelling leg lasix 20mg daily Check blood work in 10 days documented in this encounterN[facility]heast [facility] [id number] History of Present illness Narrative* La Pack [...] being taken. She does not see a faculty instructor.Eye exam is current. Depression Visit Type: follow-up [...] breakfast, Do not crush, chew, or split. Kuhpzrvkpir-Dedubbrya-Pgvdpd (Trelegy Ellipta) 200-62.5-25 MCG/ACT aerosol powder 1 [...] complication, without long-term current use of insulin ([facility]) Check blood sugars daily, notify if [...] Recurrent major depressive disorder, in full remission ([facility]) Takes sertraline daily Screening mammogram, encounter for Relevant Orders Bilateral screening mammogram COPD (chronic obstructive pulmonary disease) ([facility]) - Primary Wears oxygen at home Current meds: albuterol, trelegy Primary hypertension ([facility]) Please check blood pressure daily and [...] D 25 hydroxy Acute hypoxic respiratory failure ([facility]) Wears oxygen at home Inhalers: trelegy, albuterol Cigarette nicotine dependence without complication Has not smoked since [employer] Generalized anxiety disorder (CMS/HCC) Takes ativan prn, and sertraline Relevant Orders TSH * La Pack NP - 02/06/2025 6:32 AM EDTAssociated Problem(s): Other hyperlipidemia (CMS/[facility]) On statin therapy Check labs yearly [...] dependence without complication Has not smoked since [facility] * La Pack NP - 02/06/2025 6:27 [...] without complication, without long-term current useof insulin ([facility]) Check blood sugars daily, notify if [...] 02/06/2025 6:25 AM EDTAssociated Problem(s): Primary hypertension ([facility]) Please check blood pressure daily and record DASH diet Limit caffeine Take medication as directed Contact office if chest pain, pressure, dizziness, shortness of breath, swelling legs Recommend slow position changes Current meds: losartan * La Pack NP - 02/06/2025 6:23 AM EDTAssociated Problem(s): COPD (chronic obstructive pulmonary disease) ([facility]) Wears oxygen at home Current meds: albuterol, trelegy documented in this encounterNortheast Regional Medical [id number] Instructions* Patient Instructions* La Pack NP - 02/06/2025 10:00 AM EDT Get labs completed fasting 8 hours Mammogram we will fax order to [facility], if you dont hear from them in 2 weeks, call [phone] Great job on quitting smoking documented in this encounterNortheast Regional Medical [id number] History of Present illness Narrative* La Pack [...] of Suture / Staple Removal (head) HPI: [facility] ER on 01/14/25 for scalp [...] breakfast, Do not crush, chew, or split. Qtrwikbclqy-Iyolddzge-Pboppo (Trelegy Ellipta) 200-62.5-25 MCG/ACT aerosol powder 1 [...] to start this process documented in this encounterNortheast Regional Medical CenterDpeknrssxh04-01-6551 Instructions* Patient Instructions* La Pack NP - 01/23/2025 11:30 AM EDT May wash hair, Take augmentin atb as directed, fluids, encourage cough and deep breathing If worsening breathing go to ER documented in this encounterNortheast Regional Medical [id number] History of Present illness Narrative* Ian Soares [...] AM ESTAssociated Problem(s): Acute hypoxic respiratory failure ([facility]/HCC) SpO2 stable and wean oxygen as tolerated. * Ian Soares MD - 01/14/2025 9:30 AM EST Images from the original note were not included. Subjective Patient ID: Julian Montaño is a 69 y.o. female who presents for Follow-up (Hospital f/u), Sore Throat, and Earache (Right ear). Follow up from hospital and SNF. Patient found unresponsive at home and intubated by EMS. Brought to [facility] then transferred to [facility]. Admitted 12/09-12/14 and treated for influenza A [...] complication, without long-term current use of insulin ([facility]) BS controlled and monitor. Stick to ADA diet and limit carbs. COPD (chronic obstructive pulmonary disease) ([facility]) Breathing stable and continue inhalers. Use albuterol nebulized PRN. Script for new nebulizer machine to patient. Relevant Medications albuterol HFA 90 mcg/act inhaler Primary hypertension (CMS/HCC) BP controlled and monitor PRN. Acute hypoxic respiratory failure (CMS/HCC) SpO2 stable and wean oxygen as tolerated. Influenza A - Primary Recent infection but improved and monitor. documented in this encounterNortheast Regional Medical CenterMafognrukz02-87-2009 History of Present illness Narrative* Stephen Macias, DO - 01/01/2025 1:19 PM EST Patient Name: Julian Montaño Date of : 1955 Date of Service: 01/01/2025 Facility: [facility] Type of Visit: Skilled Visit Subjective Julian Montaño is a 69 y.o. female seen today at assisted facility for therapy visit. Julian is participating [...] Exam Vitals reviewed. Exam conducted with a boilerhouse mechanic present (Priyank Ward MS3). Constitutional: General: She [...] / Plan 1. Acute hypoxic respiratory failure ([facility]) 2. Aspiration pneumonia, unspecified aspiration pneumonia type, unspecified laterality, unspecifiedpart of lung ([facility]) 3. Chronic obstructive pulmonary disease, unspecified COPD type ([facility]) 4. Influenza A 5. Type 2 diabetes mellitus without complication, without long-term current use of insulin ([facility]) 6. Other abnormalities of gait and mobility [...] BY: Stephen Macias DO documented in this encounterCherrington Hospital02-14-2025 History of Present illness Narrative* Stephen Macias DO - 12/28/2024 2:56 PM EST Patient Name: Julian Montaño Date of : 1955 Date of Service: 12/28/2024 Facility: [facility] Type of Visit: Skilled Visit Subjective Julian Montaño is a 69 y.o. female seen today at assisted facility for therapy visit. Julian is in therapy. She is slowly improving. Staff is needing a fxim-al-ysoh visit to document her oxygen in wheelchair [...] Exam Vitals reviewed. Exam conducted with a boilerhouse mechanic present (Priyank Ward MS3). Constitutional: General: She [...] BY: Stephen Macias DO documented in this encounterSelect Medical Specialty Hospital [facility], IncAlbert Medical Devices Formerly Oakwood Heritage [id number] History of Present illness Narrative* Stephen Macias DO - 12/25/2024 11:59 PM EST Patient Name: Julian Montaño Date of : 1955 Date of Service: 12/25/2024 Facility: [facility] Type of Visit: Skilled Visit Subjective Julian Montaño is a 69 y.o. female seen today at assisted facility for therapy visit. Julian is participating [...] Exam Vitals reviewed. Exam conducted with a boilerhouse mechanic present (Priyank Ward MS3). Constitutional: General: She [...] BY: Stephen Macias DO documented in this encounterCherrington Hospital02-04-2025 History of Present illness Narrative* Stephen Macias DO - 12/18/2024 11:59 PM EST Patient Name: Julian Montaño Date of : 1955 Date of Service: 12/18/2024 Facility: [facility] Type of Visit: Admission H&P Subjective Julian Montaño is a 69 y.o. female seen today at assisted facility for admission H&Makeda Gardiner presents to [facility] for [facility] following hospitalization at [facility]. She was diagnosed with acute hypoxic [...] Past Medical History: Diagnosis Date Acoustic neuroma ([facility]) Anemia Asymmetric SNHL (sensorineural hearing loss) Benign neoplasm of cranial nerve ([facility]) Bilateral cataracts Chronic bronchitis ([facility]) Chronic cough Constipation COPD (chronic obstructive pulmonary disease) ([facility]) Depression Diabetes mellitus ([facility]) history of GERD (gastroesophageal reflux disease) Hemorrhoids History of brain tumor removed in 1997, came back 2018 Hyperlipidemia Hypertension Macular degeneration Osteoarthritis of hip Personal history of tobacco use Positive occult stool blood test Right acoustic neuroma ([facility]) Splenic sequestration Vitamin D deficiency Past [...] Exam Vitals reviewed. Exam conducted with a boilerhouse mechanic present (Priyank Ward MS3). Constitutional: General: She [...] / Plan 1. Acute hypoxic respiratory failure ([facility]) 2. Chronic obstructive pulmonary disease, unspecified COPD type ([facility]) 3. Influenza A 4. Aspiration pneumonia, unspecified aspiration pneumonia type, unspecified laterality, unspecifiedpart of lung ([facility]) 5. Depression, unspecified depression type 6. Cigarette smoker 7. Type 2 diabetes mellitus without complication, without long-term current use of insulin ([facility] 8. [facility] Finish [...] BY: Stephen Macias DO documented in this encounterSelect Medical Specialty Hospital - [facility], IncTheracos [id number] Discharge summary Author Daniel Garza [facility] HospitalNote Date/TimeJanuary 2024 2:47pm [address] [place] [address] Discharge Summary Signed Patient: Julian Montaño MR#: [id number] : 1955 Acct:[id number] Age/Sex: 69 / F Adm Date: 5 Loc: Room: [address] [place] [address]: Daniel Garza MD Copies to: MD Daniel Cruz, MATHEMATICS LECTURER-C~ Providers Date of Discharge: 12/14/24 Discharging Provider: [...] as GERD and depression. Patient came to [place] ER after she was intubated by the [...] vomiting and no other concerns as per [place] documentation. Labs at [place] showed CBC with leukocytosis and left shift, [...] no signs ofUTI. Her ABG wasdone at [place] ER showed pH of 7.16 as well as PaCO2 of 71.5. She was intubated by EMS, was given 100 mg of succinylcholine 60 mg of ketamine and then 50 mg of fentanyl and 5 mg of Versed as well as 6.4 mg of Elconin. Also they reached out to cardiology at [place] recommending again heparinization. EKG showed sinus tachycardia [...] started on bronchodilator steroid antibiotics and oseltamivir. Photo Lab Technician was consulted who recommended continuing the same. [...] possible inpatient rehab who recommended discharge to assisted facility. Patient was waiting for pre-CERT to assisted facility and is finally approved and isbeing dischargedthere. Condition Condition at Discharge: Stable Time Spent with Patient Time spent providing/coordinating discharge services (# min): 38 Discharge Plan Discharge Plan Patient Disposition: [facility] Additional Instructions: [facility] Facility to manage care: - Full code [...] with device INHALATION Follow Up: Daniel Cardoso MATHEMATICS LECTURER-C [Primary Care Provider] - (Follow-up with your Primary Care Provider after discharge from [facility]) Exam Physical Exam Vital Signs: Temp [...] % (Auto) 84.6, Lymph % (Auto) 7.0, [place] % (Auto) 8.2, Eos % (Auto) 0.0, Baso % (Auto) 0.2, Nucleat RBC Rel Count 0.1, Neut # (Auto) 7.2, Lymph # (Auto) 0.6 L, [place] # (Auto) 0.7, Eos # (Auto) 0.0, [...] 141 Documented By: Daniel Garza MD 12/14/24 1448 Signed By: <Electronically signed by Daniel Garza MD> 12/14/24 1447 [facility] Work Phone: 1([phone]) 464-527601-31-2025 Progress note Author Daniel Garza [facility] HospitalNote Date/TimeJanuary 2024 1:58pm [address] [address] Hospitalist Progress Note Signed Patient: Julian Montaño MR#: [id number] : 1955 Acct:[id number] Age/Sex: 69 / F Adm Date: 5 Loc: Room: [address] [place] [address] Type: ADM IN Attending Dr: Daniel Garza MD Copies to: ~ Date of Service: 12/14/2024 Subjective Subjective Narrative: This is a 69 y.o female with past medical history of COPD, dyslipidemia, hypertension, type 2 diabetes as well as GERD and depression. Patient came to [place] ER after she was intubated by the [...] vomiting and no other concerns as per [place] documentation. Labs at [place] showed CBC with leukocytosis and left shift, [...] no signs ofUTI. Her ABG wasdone at [place] ER showed pH of 7.16 as well as PaCO2 of 71.5. She was intubated by EMS, was given 100 mg of succinylcholine 60 mg of ketamine and then 50 mg of fentanyl and 5 mg of Versed as well as 6.4 mg of Elconin. Also they reached out to cardiology at [place] recommending again heparinization. EKG showed sinus tachycardia [...] started on bronchodilator steroid antibiotics and oseltamivir. Photo Lab Technician was consulted who recommended continuing the same. [...] -PMR was consulted who recommended discharge to assisted facility. Full code Documented By: Daniel Garza MD 12/14/24 1356 Signed By: <Electronically signed by Daniel Garza MD> 12/14/24 1358 [facility] Work Phone: 1(564) 271-860101-31-2025 Progress note Author Cecilia Ruiz [facility] HospitalNote Date/TimeJanuary 2024 1:18pm [place] [address] Pulmonology Progress Note Signed Patient: Julian Montaño MR#: [id number] : 1955 Acct:[id number] Age/Sex: 69 / F Adm Date: 5 Loc: 4 Room: [address] [place] [address] Type: ADM IN Attending Dr: Daniel Garza [...] signed by Cecilia Ruiz MD> 12/14/24 1318 [facility] Work Phone: 1([phone]) 944-747001-31-2025 [place] [id number] Discharge Summary Signed Patient: Julian Montaño MR#: [id number] : 1955 Acct:[id number] Age/Sex: 69 / F Adm Date: 5 Loc: Room: [address] [place] [address]: Daniel Garza MD Copies to: MD Daniel Cruz, MATHEMATICS LECTURER-C~ Providers Date of Discharge: 12/14/24 Discharging Provider: [...] as GERD and depression. Patient came to [place] ER after she was intubated by the [...] vomiting and no other concerns as per [place] documentation. Labs at [place] showed CBC with leukocytosis and left shift, [...] no signs ofUTI. Her ABG wasdone at [place] ER showed pH of 7.16 as well as PaCO2 of 71.5. She was intubated by EMS, was given 100 mg of succinylcholine 60 mg of ketamine and then 50 mg of fentanyl and 5 mg of Versed as well as 6.4 mg of Elconin. Also they reached out to cardiology at [place] recommending again heparinization. EKG showed sinus tachycardia [...] started on bronchodilator steroid antibiotics and oseltamivir. Photo Lab Technician was consulted who recommended continuing the same. [...] possible inpatient rehab who recommended discharge to assisted facility. Patient was waiting for pre-CERT to assisted facility and is finally approved and isbeing dischargedthere. Condition Condition at Discharge: Stable Time Spent with Patient Time spent providing/coordinating discharge services (# min): 38 Discharge Plan Discharge Plan Patient Disposition: [facility]way Facility Additional Instructions: [facility] Facility to manage care: - Full code [...] with device INHALATION Follow Up: Daniel Cardoso, MATHEMATICS LECTURER-C [Primary Care Provider] - (Follow-up with your Primary Care Provider after discharge from [facility]) Exam Physical Exam Vital Signs: Temp [...] % (Auto) 84.6, Lymph % (Auto) 7.0, [place] % (Auto) 8.2, Eos % (Auto) 0.0, Baso % (Auto) 0.2, Nucleat RBC Rel Count 0.1, Neut # (Auto) 7.2, Lymph # (Auto) 0.6 L, [place] # (Auto) 0.7, Eos # (Auto) 0.0, [...] MD 12/14/24 144 Signed By: 12/14/24 1447 [facility]01-31-2025 [place] [id number] Hospitalist Progress Note Signed Patient: Julian Montaño MR#: [id number] : 1955 Acct:[id number] Age/Sex: 69 / F Adm Date: 5 Loc: Room: 4N6552-3 Type: ADM IN Attending Dr: Daniel Garza MD Copies to: ~ Date of Service: 12/14/2024 Subjective Subjective Narrative: This is a 69 y.o female with past medical history of COPD, dyslipidemia, hypertension, type 2 diabetes as well as GERD and depression. Patient came to [place] ER after she was intubated by the [...] vomiting and no other concerns as per [place] documentation. Labs at [place] showed CBC with leukocytosis and left shift, [...] no signs ofUTI. Her ABG wasdone at [place] ER showed pH of 7.16 as well as PaCO2 of 71.5. She was intubated by EMS, was given 100 mg of succinylcholine 60 mg of ketamine and then 50 mg of fentanyl and 5 mg of Versed as well as 6.4 mg of Elconin. Also they reached out to cardiology at [place] recommending again heparinization. EKG showed sinus tachycardia [...] started on bronchodilator steroid antibiotics and oseltamivir. Photo Lab Technician was consulted who recommended continuing the same. [...] -PMR was consulted who recommended discharge to assisted facility. Full code Documented By: Daniel Garza MD 12/14/24 1356 Signed By: 12/14/24 1358 [facility]01-31-2025 [place] [id number] Pulmonology Progress Note Signed Patient: Julian Montaño MR#: [id number] : 1955 Acct:[id number] Age/Sex: 69 / F Adm Date: 5 Loc: Room: [address] [place] [address] Type: ADM IN Attending Dr: Daniel Garza [...] Ruiz MD 12/14/241316 Signed By: 12/14/24 1318 [facility]01-30-2025 Progress note Author Cecilia Ruiz [facility] HospitalNote Date/TimeJanuary 2024 1:53pm [place] [address] Pulmonology Progress Note Signed Patient: Julian Montaño MR#: [id number] : 1955 Acct:[id number] Age/Sex: 69 / F Adm Date: 5 Loc: Room: [address] [place] [address] Type: ADM IN Attending Dr: Daniel Garza [...] signed by Cecilia Ruiz MD> 12/13/24 1353 [facility] Work Phone: [phone]) 761-412901-30-2025 Progress note Author Daniel Garza [facility] HospitalNote Date/TimeJanuary 2024 1:41pm [place] [address] Hospitalist Progress Note Signed Patient: Julian Montaño MR#: [id number] : 1955 Acct:[id number] Age/Sex: 69 / F Adm Date: 5 Loc: 4 Room: [address] [place] [address] Type: ADM IN Attending Dr: Daniel Garza MD Copies to: ~ Date of Service: 12/13/2024 Subjective Subjective Narrative: This is a 69 y.o female with past medical history of COPD, dyslipidemia, hypertension, type 2 diabetes as well as GERD and depression. Patient came to [place] ER after she was intubated by the [...] vomiting and no other concerns as per [place] documentation. Labs at [place] showed CBC with leukocytosis and left shift, [...] no signs ofUTI. Her ABG wasdone at [place] ER showed pH of 7.16 as well as PaCO2 of 71.5. She was intubated by EMS, was given 100 mg of succinylcholine 60 mg of ketamine and then 50 mg of fentanyl and 5 mg of Versed as well as 6.4 mg of Elconin. Also they reached out to cardiology at [place] recommending again heparinization. EKG showed sinus tachycardia [...] started on bronchodilator steroid antibiotics and oseltamivir. Photo Lab Technician was consulted who recommended continuing the same. [...] -PMR was consulted who recommended discharge to assisted facility. Full code Documented By: Daniel Garza MD 12/13/24 1337 Signed By: <Electronically signed by Daniel Garza MD> 12/13/24 1341 [facility] Work Phone: 1(674) 201-517801-30-2025 Consult note Author Dave Bazan [facility] HospitalNote Date/TimeJanuary 2024 1:29pm [place] [address] Physiatry (Rehab) Consult Note Signed Patient: Julian Montaño MR#: [id number] : 1955 Acct:[id number] Age/Sex: 69 / F Adm Date: 5 Loc: Room: [address] [place] [address] Type: ADM IN Attending Dr: Daniel Garza MD Copies to: MD Daniel Cruz NP-C Christian D Siebenaler, MD~ HPI Consult Date: 12/13/24 Requesting Physician: Daniel Garza MD Primary Care Provider: SILVER Francois Consult Narrative HPI: Ms. Montaño is a 69 year old female with PMH COPD, dyslipidemia, hypertension, type2 diabetes as well as GERD and depression. [facility] [place] after being found unresponsive and being intubated [...] unless noted below or in HPI [facility] Medical History Depressed Acute hypoxic [...] 62.5 mcg-vilant 25 mcg inhalat.powder (Trelegy Ellipta) ggywjacpmy42/27/25 [History] losartan 50 mg tablet mg 12/10/24 [...] % (Auto) 87.0 Lymph % (Auto) 6.4 [place] % (Auto) 6.5 Eos % (Auto) 0.0 Baso % (Auto) 0.1 Nucleat RBC Rel Count 0.1 Neut # (Auto) 9.3 H Lymph # (Auto) 0.7 L [place] # (Auto) 0.7 Eos # (Auto) 0.0 [...] MPV Neut % (Auto) Lymph % (Auto) [place] % (Auto) Eos % (Auto) Baso % (Auto) Nucleat RBC Rel Count Neut # (Auto) Lymph # (Auto) [place] # (Auto) Eos # (Auto) Baso # [...] this patient on discharge should be a assisted facility. She does not meet inpatient rehab [...] chart, including current orders, allied health and supply chain consultant notes, labs/imaging and performed barrow elements of exam and I formulated the plan of care and facilitated the medical decision making. I completed a substantive portion of this encounter, the medical decision making portion of this note in its entirety, including Allied health note review, nursing note review, supply chain consultant note review, discussion with nursing and case management, and more than 50% of my time was spent on counseling and coordination of care, time spent 45 minutes Documented By: Dave Bazan MD 1255 Signed By: <Electronically signed by Dave Bazan MD> 12/13/24 1326 [facility] Work Phone: [phone]) [phone] [address] Pulmonology Progress Note Signed Patient: Julian Montaño MR#: [id number] : 1955 Acct:[id number] Age/Sex: 69 / F Adm Date: 5 Loc: 4P Room: [address] [place] [address] Type: ADM IN Attending Dr: Daniel Garza [...] MD 12/13/24 1351 Signed By: 12/13/24 1353 [facility]01-30-2025 [place] [id number] Hospitalist Progress Note Signed Patient: Julian Montaño MR#: [id number] : 1955 Acct:[id number] Age/Sex: 69 / F Adm Date: 5 Loc: Room: [address] [place] [address] Type: ADM IN Attending Dr: Daniel Garza MD Copies to: ~ Date of Service: 12/13/2024 Subjective Subjective Narrative: This is a 69 y.o female with past medical history of COPD, dyslipidemia, hypertension, type 2 diabetes as well as GERD and depression. Patient came to [place] ER after she was intubated by the [...] vomiting and no other concerns as per [place] documentation. Labs at [place] showed CBC with leukocytosis and left shift, [...] no signs ofUTI. Her ABG wasdone at [place] ER showed pH of 7.16 as well as PaCO2 of 71.5. She was intubated by EMS, was given 100 mg of succinylcholine 60 mg of ketamine and then 50 mg of fentanyl and 5 mg of Versed as well as 6.4 mg of Elconin. Also they reached out to cardiology at [place] recommending again heparinization. EKG showed sinus tachycardia [...] started on bronchodilator steroid antibiotics and oseltamivir. Photo Lab Technician was consulted who recommended continuing the same. [...] -PMR was consulted who recommended discharge to assisted facility. Full code Documented By: Daniel Garza MD 12/13/24 1337 Signed By: 12/13/24 1341 [facility]01-30-2025 [place] [address] Physiatry (Rehab) Consult Note Signed Patient: Julian Montaño MR#: [id number] : 1955 Acct:[id number] Age/Sex: 69 / F Adm Date: 5 Loc: Room: [address] [place] [address] Type: ADM IN Attending Dr: Daniel Garza MD Copies to: Daniel Kayla, MD DanielSILVER Zamarripa MD~ HPI Consult Date: 12/13/24 Requesting Physician: Daniel Garza MD Primary Care Provider: SILVER Francois Consult Narrative HPI: Ms. Montaño is a 69 year old female with PMH COPD, dyslipidemia, hypertension, type2 diabetes as well as GERD and depression. The patient was transferred [facility] from [place] after being found unresponsive and being intubated [...] unless noted below or in HPI [facility] Medical History Depressed Acute hypoxic [...] 62.5 mcg-vilant 25 mcg inhalat.powder (Trelegy Ellipta) [id number]/27/25 [History] losartan 50 mg tablet mg 12/10/24 [...] % (Auto) 87.0 Lymph % (Auto) 6.4 [place] % (Auto) 6.5 Eos % (Auto) 0.0 Baso % (Auto) 0.1 Nucleat RBC Rel Count 0.1 Neut # (Auto) 9.3 H Lymph # (Auto) 0.7 L M[place] # (Auto) 0.7 Eos # (Auto) 0.0 [...] MPV Neut % (Auto) Lymph % (Auto) [place] % (Auto) Eos % (Auto) Baso % (Auto) Nucleat RBC Rel Count Neut # (Auto) Lymph # (Auto) [place] # (Auto) Eos # (Auto) Baso # [...] this patient on discharge should be a assisted facility. She does not meet inpatient rehab [...] chart, including current orders, allied health and supply chain consultant notes, labs/imaging and performed barrow elements of exam and I formulated the plan of care and facilitated the medical decision making. I completed a substantive portion of this encounter, the medical decision making portion of this note in its entirety, including Allied health note review, nursing note review, supply chain consultant note review, discussion with nursing and case management, and more than 50% of my time was spent on counseling and coordination of care, time spent 45 minutes Documented By: Dave Bazan MD 1259 Signed By: 12/13/24 1329 [facility]01-29-2025 Progress note Author Daniel Garza [facility] Date/TimeJanuary 2024 2:45pm [address] [address] Hospitalist Progress Note Signed Patient: Julian Montaño MR#: [id number] : 1955 Acct:[id number] Age/Sex: 69 / F Adm Date: 5 Loc: Room: [address] [place] [address] Type: ADM IN Attending Dr: Daniel Garza MD Copies to: ~ Date of Service: 12/12/2024 Subjective Subjective Narrative: This is a 69 y.o female with past medical history of COPD, dyslipidemia, hypertension, type 2 diabetes as well as GERD and depression. Patient came to [place] ER after she was intubated by the [...] vomiting and no other concerns as per [place] documentation. Labs at [place] showed CBC with leukocytosis and left shift, [...] no signs ofUTI. Her ABG wasdone at [place] ER showed pH of 7.16 as well as PaCO2 of 71.5. She was intubated by EMS, was given 100 mg of succinylcholine 60 mg of ketamine and then 50 mg of fentanyl and 5 mg of Versed as well as 6.4 mg of Elconin. Also they reached out to cardiology at [place] recommending again heparinization. EKG showed sinus tachycardia [...] started on bronchodilator steroid antibiotics and oseltamivir. Photo Lab Technician was consulted who recommended continuing the same. [...] <Electronically signed by Daniel Garza MD> 12/12/24 1446 [facility] Work Phone: 1(662) 753-354101-29-2025 [place] [address] Hospitalist Progress Note Signed Patient: Julian Montaño MR#: [id number] : 1955 Acct:[id number] Age/Sex: 69 / F Adm Date: 5 Loc: Room: [address] [place] [address] Type: ADM IN Attending Dr: Daniel Garza MD Copies to: ~ Date of Service: 12/12/2024 Subjective Subjective Narrative: This is a 69 y.o female with past medical history of COPD, dyslipidemia, hypertension, type 2 diabetes as well as GERD and depression. Patient came to [place] ER after she was intubated by the [...] vomiting and no other concerns as per [place] documentation. Labs at [place] showed CBC with leukocytosis and left shift, [...] no signs ofUTI. Her ABG wasdone at [place] ER showed pH of 7.16 as well as PaCO2 of 71.5. She was intubated by EMS, was given 100 mg of succinylcholine 60 mg of ketamine and then 50 mg of fentanyl and 5 mg of Versed as well as 6.4 mg of Elconin. Also they reached out to cardiology at [place] recommending again heparinization. EKG showed sinus tachycardia [...] started on bronchodilator steroid antibiotics and oseltamivir. Photo Lab Technician was consulted who recommended continuing the same. [...] Garza MD 12/12/241442 Signed By: 12/12/24 1445 [facility]01-29-2025 Progress note Author Cecilia Ruiz [facility] Date/TimeJanuary 2024 11:35am [place] [address] Pulmonology Progress Note Signed Patient: Julian Montaño MR#: [id number] : 1955 Acct:[id number] Age/Sex: 69 / F Adm Date: 5 Loc: Room: [address] [place] [address] Type: ADM IN Attending Dr: Daniel Garza [...] signed by Cecilia Ruiz MD> 12/12/24 1135 [facility] Work Phone: 1(305) 666-887801-29-2025 [place] [id number] Pulmonology Progress Note Signed Patient: Julian Montaño MR#: [id number] : 1955 Acct:[id number] Age/Sex: 69 / F Adm Date: 5 Loc: Room: [address] [place] [address] Type: ADM IN Attending Dr: Daniel Garza [...] Ruiz MD 12/12/241132 Signed By: 12/12/24 1135 [facility]01-28-2025 Progress note Author Cecilia Ruiz [facility] Date/TimeJanuary 2024 2:49pm [place] [address] Pulmonology Progress Note Signed Patient: Julian Montaño MR#: [id number] : 1955 Acct:[id number] Age/Sex: 69 / F Adm Date: 5 Loc: Room: [address] [place] [address] Type: ADM IN Attending Dr: Daniel Garza [...] signed by Cecilia Ruiz MD> 12/11/24 1449 [facility] Work Phone: 1(983) 250-533101-28-2025 Progress note Author Daniel Garza [facility] Date/TimeJanuary 2024 2:43pm [place] [address] Hospitalist Progress Note Signed Patient: Julian Montaño MR#: [id number] : 1955 Acct:[id number] Age/Sex: 69 / F Adm Date: 5 Loc: Room: 7V7367-2 Type: ADM IN Attending Dr: Daniel Garza MD Copies to: ~ Date of Service: 12/11/2024 Subjective Subjective Narrative: This is a 69 y.o female with past medical history of COPD, dyslipidemia, hypertension, type 2 diabetes as well as GERD and depression. Patient came to [place] ER after she was intubated by the [...] vomiting and no other concerns as per [place] documentation. Labs at [place] showed CBC with leukocytosis and left shift, [...] no signs ofUTI. Her ABG wasdone at [place] ER showed pH of 7.16 as well as PaCO2 of 71.5. She was intubated by EMS, was given 100 mg of succinylcholine 60 mg of ketamine and then 50 mg of fentanyl and 5 mg of Versed as well as 6.4 mg of Elconin. Also they reached out to cardiology at [place] recommending again heparinization. EKG showed sinus tachycardia [...] started on bronchodilator steroid antibiotics and oseltamivir. Photo Lab Technician was consulted who recommended continuing the same. [...] signed by Daniel Garza MD> 12/11/24 1443 [facility] Work Phone: 1(208) 223-287201-28-2025 [place] [address] Pulmonology Progress Note Signed Patient: Julian Montaño MR#: [id number] : 1955 Acct:[id number] Age/Sex: 69 / F Adm Date: 5 Loc: Room: [address] [place] [address] Type: ADM IN Attending Dr: Daniel Garza [...] Ruiz MD 12/11/241445 Signed By: 12/11/24 1449 [facility]01-28-2025 [place] [address] Hospitalist Progress Note Signed Patient: Julian Montaño MR#: [id number] : 1955 Acct:[id number] Age/Sex: 69 / F Adm Date: 5 Loc: Room: [address] [place] [address] Type: ADM IN Attending Dr: Daniel Garza MD Copies to: ~ Date of Service: 12/11/2024 Subjective Subjective Narrative: This is a 69 y.o female with past medical history of COPD, dyslipidemia, hypertension, type 2 diabetes as well as GERD and depression. Patient came to [place] ER after she was intubated by the [...] vomiting and no other concerns as per [place] documentation. Labs at [place] showed CBC with leukocytosis and left shift, [...] no signs ofUTI. Her ABG wasdone at [place] ER showed pH of 7.16 as well as PaCO2 of 71.5. She was intubated by EMS, was given 100 mg of succinylcholine 60 mg of ketamine and then 50 mg of fentanyl and 5 mg of Versed as well as 6.4 mg of Elconin. Also they reached out to cardiology at [place] recommending again heparinization. EKG showed sinus tachycardia [...] started on bronchodilator steroid antibiotics and oseltamivir. Photo Lab Technician was consulted who recommended continuing the same. Duringthe stay her patient is slowly weaned off mechanical ventilation. Due to elevated troponin cardiology was consulted who recommended echocardiography. Transthoracic echocardiography showed normal ejection fraction of 65 to 73% withnormal wall motion. sputum culture-light normal respiratory chaes. Blood culture-no growth 1 day. Interval history-patient [...] MD 12/11/24 143 Signed By: 12/11/24 1443 [facility]01-28-2025 Consult note Author Krissy Cortez [facility] Date/TimeJanuary 2024 10:30pm [address] [address] Cardiology Consult Note Signed Patient: Julian Montaño MR#: [id number] : 1955 Acct:[id number] Age/Sex: 69 / F Adm Date: 5 Loc: Room: [address] [place] [address] Type: ADM IN Attending Dr: Daniel Garza MD Copies to: MD Daniel Cruz, MATHEMATICS LECTURER-C Suman Butler DO,RES Krissy Cortez MD~ Cardiology [...] who was transferred to our facility from [place] lastnight. Per prior documentation, the patient arrived to [place] ER after being intubated by EMS. She was reportedly found unresponsive by her boyfriend (unknown downtime) and was not responding. Additionally, prior documentation reveals that family was noting the patient complaining of shortness ofbreath for 2 days prior to arrival in the emergency department. [place] labs revealed a leukocytosis, hemoglobin of 10.6, [...] Systems Unobtainable due to endotracheal tube [facility] Medical History (Updated 12/10/24 @ [...] 62.5 mcg-vilant 25 mcg inhalat.powder (Trelegy Ellipta) [id number]/27/25 [History] losartan 50 mg tablet mg 12/10/24 [...] H Lymph # (Auto) N/A 0.2 L [place] # (Auto) N/A 0.5 Eos # (Auto) [...] recheck about 9 hours later -EKG from [place] reviewed and shows sinus tachycardia with right [...] <Electronically signed by DO DEVEN Butler> 12/10/24 1552 [facility] Work Phone: 1(981) 766-634301-27-2025 Consult [place] [id number] Cardiology Consult Note Signed Patient: Julian Montaño MR#: [id number] : 1955 Acct:[id number] Age/Sex: 69 / F Adm Date: 5 Loc: 4C Room: 9L2769-6 Type: ADM IN Attending Dr: Daniel Garza [...] who was transferred to our facility from [place] lastnight. Per prior documentation, the patient arrived to [place] ER after being intubated by EMS. She was reportedly found unresponsive by her boyfriend (unknown downtime) and was not responding. Additionally, prior documentation reveals that family was noting the patient complaining of shortness ofbreath for 2 days prior to arrival in the emergency department. [place] labs revealed a leukocytosis, hemoglobin of 10.6, [...] H Lymph # (Auto) N/A 0.2 L [place] # (Auto) N/A 0.5 Eos # (Auto) [...] recheck about 9 hours later -EKG from [place] reviewed and shows sinus tachycardia with right [...] 1020 Signed By: 12/10/24 2230 12/10/24 1554 [facility]01-27-2025 Progress note Author Daniel Garza [facility] Date/TimeJanuary 2024 8:26pm [place] [address] Hospitalist Progress Note Signed Patient: Julian Montaño MR#: [id number] : 1955 Acct:[id number] Age/Sex: 69 / F Adm Date: 5 Loc: Room: [address] [place] [address] Type: ADM IN Attending Dr: Daniel Garza MD Copies to: ~ Date of Service: 12/10/2024 Subjective Subjective Narrative: This is a 69 y.o female that appears from the medication reconciliation [place], patient appears to have past medical history of COPD, dyslipidemia, hypertension, type 2 diabetes as well as GERD anddepression. Patient came to [place] ER after she was intubated by the [...] vomiting and no other concerns as per [place] documentation. Labs at [place] showed CBC with leukocytosis and left shift, [...] no signs ofUTI. Her ABG wasdone at [place] ER showed pH of 7.16 as well as PaCO2 of 71.5. She was intubated by EMS, was given 100 mg of succinylcholine 60 mg of ketamine and then 50 mg of fentanyl and 5 mg of Versed as well as 6.4 mg of Elconin. Also they reached out to cardiology at [place] recommending again heparinization. EKG showed sinus tachycardia [...] <Electronically signed by Daniel Garza MD> 12/10/242025 [facility] Work Phone: 1(394) 408-554601-27-2025 [place] [address] Hospitalist Progress Note Signed Patient: Julian Montaño MR#: [id number] : 1955 Acct:[id number] Age/Sex: 69 / F Adm Date: 5 Loc: Room: [address] [place] [address] Type: ADM IN Attending Dr: Daniel Garza MD Copies to: ~ Date of Service: 12/10/2024 Subjective Subjective Narrative: This is a 69 y.o female that appears from the medication reconciliation [place], patient appears to have past medical history of COPD, dyslipidemia, hypertension, type 2 diabetes as well as GERD anddepression. Patient came to [place] ER after she was intubated by the [...] vomiting and no other concerns as per [place] documentation. Labs at [place] showed CBC with leukocytosis and left shift, [...] no signs ofUTI. Her ABG wasdone at [place] ER showed pH of 7.16 as well as PaCO2 of 71.5. She was intubated by EMS, was given 100 mg of succinylcholine 60 mg of ketamine and then 50 mg of fentanyl and 5 mg of Versed as well as 6.4 mg of Elconin. Also they reached out to cardiology at [place] recommending again heparinization. EKG showed sinus tachycardia [...] Daniel Garza MD 12/10/242020 Signed By: 12/10/242025 [facility]01-27-2025 Consult note Author Cecilia Ruiz [facility] Date/TimeJanuary 2024 4:32pm [place] [address] Pulmonology Consult Note Signed Patient: Julian Montaño MR#: [id number] : 1955 Acct:[id number] Age/Sex: 69 / F Adm Date: 5 Loc: Room: [address] [place] [address] Type: ADM IN Attending Dr: Daniel Garza [...] well as GERD and depression, presented to [facility] after she was found unresponsive by [...] Systems Unobtainable due to endotracheal tube [facility] Medical History (Updated 12/10/24 @ [...] nondistended. Extremities: No edema. Skin: No lesions RAIL EXPRESS CLERK: Arouses to stimuli and follows simple commands. [...] signed by Cecilia Ruiz MD> 12/10/24 1632 [facility] Work Phone: 1(426) 696-126401-27-[address] [address] Pulmonology Consult Note Signed Patient: Julian Montaño MR#: [id number] : 1955 Acct:[id number] Age/Sex: 69 / F Adm Date: 5 Loc: 4C Room: 5O9540-0 Type: ADM IN Attending Dr: Daniel Garza [...] well as GERD and depression, presented to [facility] after she was found unresponsive by [...] nondistended. Extremities: No edema. Skin: No lesions RAIL EXPRESS CLERK: Arouses to stimuli and follows simple commands. [...] Ruiz MD 12/10/241624 Signed By: 12/10/24 1632 [facility]01-26-2025 Evaluation note* Diagnosis Onset Date Resolution Status Admit Date Acute hypoxic respiratory failure acuteJanuary 2024 9:05pmAspiration pneumoniaacuteJanuary 2024 9:05pm COPD exacerbationacuteJanuary 2024 9:05pmDepressionacuteJanuary 2024 9:05pmDiabetes type 2acuteJanuary 2024 9:05pmDyslipidemiaacuteJanuary 2024 9:05pmElevated troponinacuteJanuary 2024 9:05pmHTN (hypertension)acuteJanuary 2024 9:05pmHypotensionacuteJanuary 2024 9:05pmImpaired mobility and activities of daily livingacuteJanuary 2024 9:05pmInfluenza AacuteJanuary 2024 9:05pmTobacco abuseacuteJanuary 2024 9:05pm [facility] Work Phone: 1(850) 480-652701-26-2025 Evaluation note* Diagnosis Onset Date Resolution Status Admit Date Acute hypoxic respiratory failure acuteJanuary 2024 9:05pmCOPD exacerbationacuteJanuary 2024 9:05pm DepressionacuteJanuary 2024 9:05pmDiabetes type 2acuteJanuary 2024 9:05pmDyslipidemiaacuteJanuary 2024 9:05pmElevated troponinacuteJanuary 2024 9:05pmHTN (hypertension)acuteNovuary 2024 9:05pmImpaired mobility and activities of daily livingacuteNovuary 2024 9:05pmInfluenza A acuteJanuary 2024 9:05pmTobacco abuseacuteJanuary 2024 9:05pm Aspiration pneumoniaresolvedNovuary 2024 9:05pmHypotensionresolvedJanuary 2024 9:05pm [facility] Work Phone: 1(690) 820-472311-07-2024 History of Present illness Narrative* Daniel Cardoso, GREG - 09/20/2024 10:53 AM ESTAssociated Problem(s): Type 2 diabetes mellitus without complication, without long-term current useof insulin ([facility]) Currently taking Metformin 500mg Most [...] >11.0 HIGH RISK Resulting Agency [facility] DMII: Most recent labs: hemoglobin A1C [...] List Items Addressed This Visit Other hyperlipidemia ([facility]) Currently taking Atorvastatin 40mg Denies any myalgias. Continue current regimen. Type 2 diabetes mellitus without complication, without long-term current use of insulin ([facility]) Currently taking Metformin 500mg Most [...] Asthma with COPD (chronic obstructive pulmonary disease) ([facility]) Currently taking Trelegy Daily and Albuterol PRN No exacerbations recently Reports using rescue inhaler 3 times per month. Continue current regimen Primary hypertension ([facility]) - Primary Currently taking Losartan-hydrochlorothiazide [...] (Augmentin) 875-125 MG tablet documented in this encounterNortheast [facility] Medical [id number] Instructions* Patient Instructions* Daniel Cardoso NP - [...] if you need anything! [facility] Tele[facility] encounter Note* Telephone Encounter - Sabina Black MA - 09/11/2024 3:30 PM EDT Pt requesting a refill on her mobic, ANETTE:06/21/2024 NOV:09/20/2024 [facility] [id number] Miscellaneous Notes* Telephone Encounter - Sabina Black MA - 09/11/2024 3:30 PM EDT Pt requesting a refill on her mobic, ANETTE:06/21/2024 NOV:09/20/2024 documented in this [facility] No data available for this section [facility]* Diagnosis Iron deficiency anemia due to chronic blood loss- Primary Iron deficiency anemia secondary to blood loss (chronic) Current smoker Other hyperlipidemia (CMS/HCC) Moderate persistent asthma without complication ([facility]/HCC) Type 2 diabetes mellitus without complication, without long-term current use of insulin ([facility]/HCC) Screening mammogram, encounter for Recurrent major depressive disorder, in full remission ([facility]) Asthma with COPD (chronic obstructive pulmonary disease) ([facility])- Primary Iron deficiency anemia due [...] Asthma with COPD (chronic obstructive pulmonary disease) ([facility]/HCC) documented in this encounter [facility]* Diagnosis Iron deficiency anemia due to chronic blood loss- Primary Iron deficiency anemia secondary to blood loss (chronic) Current smoker Other hyperlipidemia (CMS/HCC) Moderate persistent asthma without complication ([facility]) Type 2 diabetes mellitus without complication, without long-term current use of insulin ([facility]) Screening mammogram, encounter for Recurrent major depressive disorder, in full remission ([facility]) Asthma with COPD (chronic obstructive pulmonary disease) ([facility]/HCC)- Primary Iron deficiency anemia due to chronic blood loss Iron deficiency anemia secondary to blood loss (chronic) Type 2 diabetes mellitus without complication, without long-term current use of insulin ([facility]/HCC) Primary hypertension (CMS/HCC) Unspecified essential hypertension Asthma with COPD (chronic obstructive pulmonary disease) ([facility]/HCC)- Primary Primary hypertension ([facility]/HCC) Unspecified essential hypertension Type 2 diabetes mellitus without complication, without long-term current use of insulin (CMS/HCC) Primary hypertension (CMS/HCC)- Primary Unspecified essential hypertension Asthma with COPD (chronic obstructive pulmonary disease) ([facility]/HCC) Iron deficiency anemia due to chronic blood loss Iron deficiency anemia secondary to blood loss (chronic) Other hyperlipidemia (CMS/HCC) Type 2 diabetes mellitus without complication, without long-term current use of insulin ([facility]/HCC) Vitamin D deficiency Dermoid cyst of right ear Tobacco dependency Tobacco use disorder Type 2 diabetes mellitus without complications ([facility]/HCC) documented in this encounter [facility]* Diagnosis Iron deficiency anemia due to chronic blood loss- Primary Iron deficiency anemia secondary to blood loss (chronic) Current smoker Other hyperlipidemia (CMS/HCC) Moderate persistent asthma without complication (CMS/HCC) Type 2 diabetes mellitus without complication, without long-term current use of insulin ([facility]) Screening mammogram, encounter for Recurrent major depressive disorder, in full remission ([facility]/HCC) Asthma with COPD (chronic obstructive pulmonary disease) ([facility]/HCC)- Primary Iron deficiency anemia due to chronic blood loss Iron deficiency anemia secondary to blood loss (chronic) Type 2 diabetes mellitus without complication, without long-term current use of insulin (CMS/HCC) Primary hypertension (CMS/HCC) Unspecified essential hypertension Asthma with COPD (chronic obstructive pulmonary disease) ([facility])- Primary Primary hypertension ([facility]/HCC) Unspecified essential hypertension Type 2 diabetes mellitus without complication, without long-term current use of insulin ([facility]/HCC) Primary hypertension ([facility]/HCC)- Primary Unspecified essential hypertension Asthma with COPD (chronic obstructive pulmonary disease) ([facility]) Iron deficiency anemia due to chronic blood loss Iron deficiency anemia secondary to blood loss (chronic) Other hyperlipidemia (CMS/HCC) Type 2 diabetes mellitus without complication, without long-term current use of insulin ([facility]) Vitamin D deficiency Dermoid cyst of right ear Tobacco dependency Tobacco use disorder Hyperlipidemia, unspecified ([facility]) documented in this encounter [facility]* Diagnosis Iron deficiency anemia due to chronic blood loss- Primary Iron deficiency anemia secondary to blood loss (chronic) Current smoker Other hyperlipidemia (CMS/HCC) Moderate persistent asthma without complication ([facility]/HCC) Type 2 diabetes mellitus without complication, without long-term current use of insulin ([facility]) Screening mammogram, encounter for Recurrent major depressive disorder, in full remission ([facility] Asthma with COPD (chronic obstructive pulmonary disease) ([facility])- Primary Iron deficiency anemia due to chronic blood loss Iron deficiency anemia secondary to blood loss (chronic) Type 2 diabetes mellitus without complication, without long-term current use of insulin ([facility]/HCC) Primary hypertension ([facility]/HCC) Unspecified essential hypertension Asthma with COPD (chronic obstructive pulmonary disease) ([facility]/HCC)- Primary Primary hypertension ([facility]/HCC) Unspecified essential hypertension Type 2 diabetes mellitus without complication, without long-term current use of insulin ([facility]/HCC) Primary hypertension ([facility]/HCC)- Primary Unspecified essential hypertension Asthma with COPD (chronic obstructive pulmonary disease) (CMS/HCC) Iron deficiency anemia due to chronic blood loss Iron deficiency anemia secondary to blood loss (chronic) Other hyperlipidemia (CMS/HCC) Type 2 diabetes mellitus without complication, without long-term current use of insulin ([facility]) Vitamin D deficiency Dermoid cyst of right ear Tobacco dependency Tobacco use disorder Other bursitis of elbow, left elbow documented in this encounter [facility] HealthcareEvaluation note* Diagnosis Iron deficiency anemia due to chronic blood loss- Primary Iron deficiency anemia secondary to blood loss (chronic) Current smoker Other hyperlipidemia (CMS/HCC) Moderate persistent asthma without complication ([facility]/HCC) Type 2 diabetes mellitus without complication, without long-term current use of insulin ([facility]) Screening mammogram, encounter for Recurrent major depressive disorder, in full remission ([facility] Asthma with COPD (chronic obstructive pulmonary disease) ([facility])- Primary Iron deficiency anemia due to chronic blood loss Iron deficiency anemia secondary to blood loss (chronic) Type 2 diabetes mellitus without complication, without long-term current use of insulin ([facility]) Primary hypertension ([facility] Unspecified essential hypertension Asthma with COPD (chronic obstructive pulmonary disease) ([facility]/HCC)- Primary Primary hypertension ([facility]) Unspecified essential hypertension Type 2 diabetes mellitus without complication, without long-term current use of insulin ([facility]/HCC[facility] Primary hypertension ([facility]/HCC)- Primary Unspecified essential hypertension Asthma with COPD (chronic obstructive pulmonary disease) ([facility]/HCC) Iron deficiency anemia due to chronic blood loss Iron deficiency anemia secondary to blood loss (chronic) Other hyperlipidemia ([facility]/HCC) Type 2 diabetes mellitus without complication, without long-term current use of insulin ([facility]) Vitamin D deficiency Dermoid cyst of right ear Tobacco dependency Tobacco use disorder Primary hypertension ([facility]/HCC)- Primary Unspecified essential hypertension Type 2 diabetes mellitus without complication, without long-term current use of insulin ([facility]/HCC) Other hyperlipidemia ([facility]/HCC) Asthma with COPD (chronic obstructive pulmonary disease) ([facility]) Non-recurrent acute serous otitis media of left ear documented in this encounter [facility] HealthcareEvaluation note* Diagnosis Other bursitis of elbow, left elbow documented in this encounter [facility] HealthcareEvaluation note* Diagnosis Iron deficiency anemia due to chronic blood loss- Primary Iron deficiency anemia secondary to blood loss (chronic) Current smoker Other hyperlipidemia (CMS/HCC) Moderate persistent asthma without complication ([facility]/HCC) Type 2 diabetes mellitus without complication, without long-term current use of insulin ([facility]) Screening mammogram, encounter for Recurrent major depressive disorder, in full remission ([facility]) Asthma with COPD (chronic obstructive pulmonary disease) ([facility]/HCC)- Primary Iron deficiency anemia due to chronic blood loss Iron deficiency anemia secondary to blood loss (chronic) Type 2 diabetes mellitus without complication, without long-term current use of insulin ([facility]/HCC) Primary hypertension ([facility]/HCC) Unspecified essential hypertension Asthma with COPD (chronic obstructive pulmonary disease) ([facility]/HCC)- Primary Primary hypertension ([facility]/HCC) Unspecified essential hypertension Type 2 diabetes mellitus without complication, without long-term current use of insulin ([facility]/HCC) Primary hypertension ([facility]/HCC)- Primary Unspecified essential hypertension Asthma with COPD (chronic obstructive pulmonary disease) ([facility]) Iron deficiency anemia due to chronic blood loss Iron deficiency anemia secondary to blood loss (chronic) Other hyperlipidemia ([facility]) Type 2 diabetes mellitus without complication, without long-term current use of insulin ([facility]) Vitamin D deficiency Dermoid cyst of right ear Tobacco dependency Tobacco use disorder Primary hypertension ([facility])- Primary Unspecified essential hypertension Type 2 diabetes mellitus without complication, without long-term current use of insulin ([facility]) Other hyperlipidemia ([facility] Asthma with COPD (chronic obstructive pulmonary disease) ([facility]) Non-recurrent acute serous otitis media of left ear Gastro-esophageal reflux disease without esophagitis documented in this encounter [facility]* Diagnosis Iron deficiency anemia due to chronic blood loss- Primary Iron deficiency anemia secondary to blood loss (chronic) Current smoker Other hyperlipidemia ([facility]/HCC) Moderate persistent asthma without complication ([facility]) Type 2 diabetes mellitus without complication, without long-term current use of insulin ([facility]) Screening mammogram, encounter for Recurrent major depressive disorder, in full remission ([facility]) Asthma with COPD (chronic obstructive pulmonary disease) ([facility])- Primary Iron deficiency anemia due to chronic blood loss Iron deficiency anemia secondary to blood loss (chronic) Type 2 diabetes mellitus without complication, without long-term current use of insulin ([facility]/HCC[facility] Primary hypertension ([facility] Unspecified essential hypertension Asthma with COPD (chronic obstructive pulmonary disease) ([facility])- Primary Primary hypertension ([facility]) Unspecified essential hypertension Type 2 diabetes mellitus without complication, without long-term current use of insulin ([facility]/HCC) Primary hypertension ([facility]/HCC)- Primary Unspecified essential hypertension Asthma with COPD (chronic obstructive pulmonary disease) ([facility]/HCC) Iron deficiency anemia due to chronic blood loss Iron deficiency anemia secondary to blood loss (chronic) Other hyperlipidemia ([facility]/HCC) Type 2 diabetes mellitus without complication, without long-term current use of insulin ([facility]) Vitamin D deficiency Dermoid cyst of right ear Tobacco dependency Tobacco use disorder Primary hypertension ([facility]/HCC)- Primary Unspecified essential hypertension Type 2 diabetes mellitus without complication, without long-term current use of insulin ([facility]/HCC) Other hyperlipidemia ([facility]/HCC) Asthma with COPD (chronic obstructive pulmonary disease) ([facility]) Non-recurrent acute serous otitis media of left ear Depression, unspecified ([facility]) documented in this encounter [facility] HealthcareEvaluation note* Diagnosis Iron deficiency anemia due to chronic blood loss- Primary Iron deficiency anemia secondary to blood loss (chronic) documented in this encounter [facility]Evaluation note* Diagnosis Iron deficiency anemia due to chronic blood loss- Primary Iron deficiency anemia secondary to blood loss (chronic) documented in this encounter [facility]* Diagnosis Type 2 diabetes mellitus without complications ([facility]) Hyperlipidemia, unspecified ([facility]/HCC) documented in this encounter [facility] HealthcareEvaluation note* Diagnosis Hyperlipidemia, unspecified ([facility]/HCC) Other bursitis of elbow, left elbow Depression, unspecified ([facility]) Type 2 diabetes mellitus without complications ([facility]) documented in this encounter [facility]Evaluation note* Diagnosis Iron deficiency anemia due to chronic blood loss- Primary Iron deficiency anemia secondary to blood loss (chronic) Current smoker Other hyperlipidemia ([facility]/HCC) Moderate persistent asthma without complication ([facility]/HCC) Type 2 diabetes mellitus without complication, without long-term current use of insulin ([facility]) Screening mammogram, encounter for Recurrent major depressive disorder, in full remission ([facility]) Asthma with COPD (chronic obstructive pulmonary disease) ([facility])- Primary Iron deficiency anemia due to chronic blood loss Iron deficiency anemia secondary to blood loss (chronic) Type 2 diabetes mellitus without complication, without long-term current use of insulin ([facility]/HCC) Primary hypertension ([facility]/HCC) Unspecified essential hypertension Asthma with COPD (chronic obstructive pulmonary disease) ([facility]/HCC)- Primary Primary hypertension (CMS/HCC) Unspecified essential hypertension [...] complication, without long-term current use of insulin ([facility]) Vitamin D deficiency Dermoid cyst of right ear Tobacco dependency Tobacco use disorder Primary hypertension (CMS/HCC)- Primary Unspecified essential hypertension Type 2 diabetes mellitus without complication, without long-term current use of insulin (CMS/HCC) Other hyperlipidemia (CMS/HCC) Asthma with COPD (chronic obstructive pulmonary disease) ([facility]) Non-recurrent acute serous otitis media of left ear Iron deficiency anemia due to chronic blood loss Iron deficiency anemia secondary to blood loss (chronic) documented in this encounter [facility] HealthcareEvaluation note* Diagnosis Iron deficiency anemia due to chronic blood loss- Primary Iron deficiency anemia secondary to blood loss (chronic) Current smoker Other hyperlipidemia (CMS/HCC) Moderate persistent asthma without complication ([facility]) Type 2 diabetes mellitus without complication, without long-term current use of insulin ([facility]) Screening mammogram, encounter for Recurrent major depressive disorder, in full remission ([facility]) Asthma with COPD (chronic obstructive pulmonary disease) ([facility])- Primary Iron deficiency anemia due to chronic blood loss Iron deficiency anemia secondary to blood loss (chronic) Type 2 diabetes mellitus without complication, without long-term current use of insulin ([facility]) Primary hypertension ([facility]/HCC) Unspecified essential hypertension Asthma with COPD (chronic obstructive pulmonary disease) ([facility]/HCC)- Primary Primary hypertension ([facility]/HCC[facility] Unspecified essential hypertension Type 2 diabetes mellitus without complication, without long-term current use of insulin (CMS/HCC) Primary hypertension ([facility]/HCC)- Primary Unspecified essential hypertension Asthma with COPD (chronic obstructive pulmonary disease) ([facility]/HCC) Iron deficiency anemia due to chronic blood loss Iron deficiency anemia secondary to blood loss (chronic) Other hyperlipidemia (CMS/HCC) Type 2 diabetes mellitus without complication, without long-term current use of insulin ([facility]/HCC) Vitamin D deficiency Dermoid cyst of right ear Tobacco dependency Tobacco use disorder Primary hypertension (CMS/HCC)- Primary Unspecified essential hypertension Type 2 diabetes mellitus without complication, without long-term current use of insulin ([facility]) Other hyperlipidemia ([facility]) Asthma with COPD (chronic obstructive pulmonary disease) ([facility]) Non-recurrent acute serous otitis media of left ear Asthma with COPD (chronic obstructive pulmonary disease) ([facility]) documented in this encounter [facility] HealthcareEvaluation [facility]* Diagnosis Iron deficiency anemia due to chronic blood loss- Primary Iron deficiency anemia secondary to blood loss (chronic) Current smoker Other hyperlipidemia ([facility]) Moderate persistent asthma without complication ([facility]) Type 2 diabetes mellitus without complication, without long-term current use of insulin ([facility]) Screening mammogram, encounter for Recurrent major depressive disorder, in full remission ([facility]) Asthma with COPD (chronic obstructive pulmonary disease) ([facility])- Primary Iron deficiency anemia due to chronic blood loss Iron deficiency anemia secondary to blood loss (chronic) Type 2 diabetes mellitus without complication, without long-term current use of insulin ([facility]) Primary hypertension ([facility] Unspecified essential hypertension Asthma with COPD (chronic obstructive pulmonary disease) ([facility])- Primary Primary hypertension ([facility]) Unspecified essential hypertension Type 2 diabetes mellitus without complication, without long-term current use of insulin ([facility] Primary hypertension ([facility])- Primary Unspecified essential hypertension Asthma with COPD (chronic obstructive pulmonary disease) ([facility]) Iron deficiency anemia due to chronic blood loss Iron deficiency anemia secondary to blood loss (chronic) Other hyperlipidemia ([facility]) Type 2 diabetes mellitus without complication, without long-term current use of insulin ([facility]) Vitamin D deficiency Dermoid cyst of right ear Tobacco dependency Tobacco use disorder Primary hypertension ([facility])- Primary Unspecified essential hypertension Type 2 diabetes mellitus without complication, without long-term current use of insulin ([facility]) Other hyperlipidemia ([facility]) Asthma with COPD (chronic obstructive pulmonary disease) ([facility]) Non-recurrent acute serous otitis media of left ear Iron deficiency anemia due to chronic blood loss Iron deficiency anemia secondary to blood loss (chronic) documented in this encounter [facility]* Diagnosis Acute hypoxic respiratory failure ([facility])- Primary Chronic obstructive pulmonary disease, unspecified COPD type [place] [place] Influenza A Influenza with other respiratory manifestations Aspiration pneumonia, unspecified aspiration pneumonia type, unspecified laterality, unspecified part of lung [place] [place] Depression, unspecified depression type Cigarette smoker Tobacco use disorder Type 2 diabetes mellitus without complication, without long-term current use of insulin [place] [place] Anxiety Anxiety state, unspecified documented in this encounter [facility]* Diagnosis Acute hypoxic respiratory failure [place] [place] Primary Chronic obstructive pulmonary disease, unspecified COPD type [place] [place] Influenza A Influenza with other respiratory manifestations Other abnormalities of gait and mobility documented in this encounter [facility]* Diagnosis Acute hypoxic respiratory failure [place] [place] Primary Aspiration pneumonia, unspecified aspiration pneumonia type, unspecified laterality, unspecified part of lung [place] [place] Chronic obstructive pulmonary disease, unspecified COPD type [place] [place] Influenza A Influenza with other respiratory manifestations Type 2 diabetes mellitus without complication, without long-term current use of insulin [place] [place] Other abnormalities of gait and mobility Anxiety Anxiety state, unspecified documented in this encounter [facility]* Diagnosis Chronic obstructive pulmonary disease, unspecified COPD type [place] [place] Primary Influenza A Influenza with other respiratory manifestations Other abnormalities of gait and mobility Anxiety Anxiety state, unspecified Cigarette smoker Tobacco use disorder documented in this encounter [facility]* Diagnosis Iron deficiency anemia due to chronic blood loss- Primary Iron deficiency anemia secondary to blood loss (chronic) Current smoker Other hyperlipidemia [place] [place] Moderate persistent asthma without complication [place] [place] Type 2 diabetes mellitus without complication, without long-term current use of insulin ([facility] [place] Screening mammogram, encounter for Recurrent major depressive disorder, in full remission [place] [place] Asthma with COPD (chronic obstructive pulmonary disease) [place] [place] Primary Iron deficiency anemia due to chronic blood loss Iron deficiency anemia secondary to blood loss (chronic) Type 2 diabetes mellitus without complication, without long-term current use of insulin ([facility] [place] Primary hypertension [place] [place] Unspecified essential hypertension Asthma with COPD (chronic obstructive pulmonary disease) ([facility] [place] Primary Primary hypertension ([facility] [place] Unspecified essential hypertension Type 2 diabetes mellitus without complication, without long-term current use of insulin ([facility] [place] Primary hypertension [place] [place] Primary Unspecified essential hypertension Asthma with COPD (chronic obstructive pulmonary disease) ([facility] [place] Iron deficiency anemia due to chronic blood [...] COPD type (CMS/HCC) Acute hypoxic respiratory failure ([facility]) Type 2 diabetes mellitus without complication, without long-term current use of insulin ([facility]CC) Primary hypertension ([facility]HCC) Unspecified essential hypertension Benign neoplasm of cranial nerves ([facility]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 (CMS/[facility]) documented in this encounter [facility]* Diagnosis Iron deficiency anemia due to chronic blood loss- Primary Iron deficiency anemia secondary to blood loss (chronic) Current smoker Other hyperlipidemia (CMS/HCC) Moderate persistent asthma without complication ([facility]HCC) Type 2 diabetes mellitus without complication, without long-term current use of insulin ([facility]) Screening mammogram, encounter for Recurrent major depressive disorder, in full remission ([facility]) Asthma with COPD (chronic obstructive pulmonary disease) ([facility]/HCC)- Primary Iron deficiency anemia due to chronic blood loss Iron deficiency anemia secondary to blood loss (chronic) Type 2 diabetes mellitus without complication, without long-term current use of insulin ([facility]) Primary hypertension (CMS/HCC) Unspecified essential hypertension Asthma with COPD (chronic obstructive pulmonary disease) ([facility]/HCC)- Primary Primary hypertension ([facility]/HCC) Unspecified essential hypertension Type 2 diabetes mellitus without complication, without long-term current use of insulin (CMS/HCC) Primary hypertension ([facility]/HCC)- Primary Unspecified essential hypertension Asthma with COPD (chronic obstructive pulmonary disease) ([facility]/HCC) Iron deficiency anemia due to chronic blood loss Iron deficiency anemia secondary to blood loss (chronic) Other hyperlipidemia (CMS/HCC) Type 2 diabetes mellitus without complication, without long-term current use of insulin ([facility]HCC) Vitamin D deficiency Dermoid cyst of right ear Tobacco dependency Tobacco use disorder Primary hypertension (CMS/HCC)- Primary Unspecified essential hypertension Type 2 diabetes mellitus without complication, without long-term current use of insulin ([facility]) Other hyperlipidemia ([facility]) Asthma with COPD (chronic obstructive pulmonary disease) ([facility]) Non-recurrent acute serous otitis media of left ear Influenza A- Primary Influenza with other respiratory manifestations Chronic obstructive pulmonary disease, unspecified COPD type ([facility]) Acute hypoxic respiratory failure ([facility]) Type 2 diabetes mellitus without complication, without long-term current use of insulin ([facility]) Primary hypertension ([facility] Unspecified essential hypertension Benign neoplasm of cranial nerves ([facility]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 ([facility]) Scalp laceration, sequela- Primary Cigarette nicotine dependence without complication COPD exacerbation ([facility]) Obstructive chronic bronchitis with exacerbation documented in this encounter [facility]* Diagnosis Iron deficiency anemia due to chronic blood loss- Primary Iron deficiency anemia secondary to blood loss (chronic) Current smoker Other hyperlipidemia ([facility]) Moderate persistent asthma without complication ([facility]) Type 2 diabetes mellitus without complication, without long-term current use of insulin ([facility]) Screening mammogram, encounter for Recurrent major depressive disorder, in full remission ([facility]) Asthma with COPD (chronic obstructive pulmonary disease) ([facility])- Primary Iron deficiency anemia due to chronic blood loss Iron deficiency anemia secondary to blood loss (chronic) Type 2 diabetes mellitus without complication, without long-term current use of insulin ([facility]) Primary hypertension ([facility] Unspecified essential hypertension Asthma with COPD (chronic obstructive pulmonary disease) ([facility])- Primary Primary hypertension ([facility]) Unspecified essential hypertension Type 2 diabetes mellitus without complication, without long-term current use of insulin ([facility] Primary hypertension ([facility])- Primary Unspecified essential hypertension Asthma with COPD (chronic obstructive pulmonary disease) ([facility]) Iron deficiency anemia due to chronic blood loss Iron deficiency anemia secondary to blood loss (chronic) Other hyperlipidemia ([facility]) Type 2 diabetes mellitus without complication, without long-term current use of insulin ([facility]) Vitamin D deficiency Dermoid cyst of right ear Tobacco dependency Tobacco use disorder Primary hypertension ([facility])- Primary Unspecified essential hypertension Type 2 diabetes mellitus without complication, without long-term current use of insulin ([facility]) Other hyperlipidemia ([facility] Asthma with COPD (chronic obstructive pulmonary disease) ([facility]) Non-recurrent acute serous otitis media of left ear Influenza A- Primary Influenza with other respiratory manifestations Chronic obstructive pulmonary disease, unspecified COPD type ([facility]) Acute hypoxic respiratory failure ([facility]) Type 2 diabetes mellitus without complication, without long-term current use of insulin ([facility]) Primary hypertension ([facility] Unspecified essential hypertension Benign neoplasm of cranial nerves (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 ([facility]) Scalp laceration, sequela- Primary Cigarette nicotine dependence without complication COPD exacerbation ([facility]) Obstructive chronic bronchitis with exacerbation Type 2 diabetes mellitus without complication, without long-term current use of insulin ([facility])- Primary Chronic obstructive pulmonary disease, unspecified COPD type ([facility]) Primary hypertension ([facility]) Unspecified essential hypertension Vitamin D deficiency Iron deficiency anemia due to chronic blood loss Iron deficiency anemia secondary to blood loss (chronic) Cigarette nicotine dependence without complication Recurrent major depressive disorder, in full remission ([facility]) Generalized anxiety disorder ([facility]) Generalized anxiety disorder Screening mammogram, encounter for Other hyperlipidemia ([facility]) Acute hypoxic respiratory failure ([facility]) documented in this encounter [facility]* Diagnosis Iron deficiency anemia due to chronic blood loss- Primary Iron deficiency anemia secondary to blood loss (chronic) Current smoker Other hyperlipidemia Moderate persistent asthma without complication ([facility]) Type 2 diabetes mellitus without complication, without long-term current use of insulin Screening mammogram, encounter for Recurrent major depressive disorder, in full remission ([facility]) Asthma with COPD (chronic obstructive pulmonary disease) ([facility])- Primary Iron deficiency anemia due to chronic blood loss Iron deficiency anemia secondary to blood loss (chronic) Type 2 diabetes mellitus without complication, without long-term current use of insulin Primary hypertension ([facility] Unspecified essential hypertension Asthma with COPD (chronic obstructive pulmonary disease) ([facility])- Primary Primary hypertension ([facility]) Unspecified essential hypertension Type 2 diabetes mellitus without complication, without long-term current use of insulin Primary hypertension ([facility])- Primary Unspecified essential hypertension Asthma with COPD (chronic obstructive pulmonary disease) ([facility]) Iron deficiency anemia due to chronic blood loss Iron deficiency anemia secondary to blood loss (chronic) Other hyperlipidemia Type 2 diabetes mellitus without complication, without long-term current use of insulin Vitamin D deficiency Dermoid cyst of right ear Tobacco dependency Tobacco use disorder Primary hypertension ([facility])- Primary Unspecified essential hypertension Type 2 diabetes mellitus without complication, without long-term current use of insulin Other hyperlipidemia Asthma with COPD (chronic obstructive pulmonary disease) ([facility]) Non-recurrent acute serous otitis media of left ear Influenza A- Primary Influenza with other respiratory manifestations Chronic obstructive pulmonary disease, unspecified COPD type ([facility]) Acute hypoxic respiratory failure ([facility]) Type 2 diabetes mellitus without complication, without long-term current use of insulin Primary hypertension ([facility]) Unspecified essential hypertension Benign neoplasm of cranial nerves (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 ([facility]) Scalp laceration, sequela- Primary Cigarette nicotine dependence without complication COPD exacerbation ([facility]) Obstructive chronic bronchitis with exacerbation Type 2 diabetes mellitus without complication, without long-term current use of insulin- Primary Chronic obstructive pulmonary disease, unspecified COPD type ([facility]) Primary hypertension ([facility]) Unspecified essential hypertension Vitamin D deficiency Iron deficiency anemia due to chronic blood loss Iron deficiency anemia secondary to blood loss (chronic) Cigarette nicotine dependence without complication Recurrent major depressive disorder, in full remission ([facility]) Generalized anxiety disorder ([facility]) Generalized anxiety disorder Screening mammogram, encounter for Other hyperlipidemia Acute hypoxic respiratory failure ([facility]) Elevated TSH Other abnormal blood chemistry documented in this encounter [facility] HealthcareEvaluation note* Diagnosis Iron deficiency anemia due to chronic blood loss- Primary Iron deficiency anemia secondary to blood loss (chronic) Current smoker Other hyperlipidemia Moderate persistent asthma without complication ([facility]) Type 2 diabetes mellitus without complication, without long-term current use of insulin Screening mammogram, encounter for Recurrent major depressive disorder, in full remission ([facility]) Asthma with COPD (chronic obstructive pulmonary disease) ([facility])- Primary Iron deficiency anemia due to chronic blood loss Iron deficiency anemia secondary to blood loss (chronic) Type 2 diabetes mellitus without complication, without long-term current use of insulin Primary hypertension ([facility] Unspecified essential hypertension Asthma with COPD (chronic obstructive pulmonary disease) ([facility])- Primary Primary hypertension ([facility]) Unspecified essential hypertension Type 2 diabetes mellitus without complication, without long-term current use of insulin Primary hypertension ([facility])- Primary Unspecified essential hypertension Asthma with COPD (chronic obstructive pulmonary disease) ([facility]) Iron deficiency anemia due to chronic blood loss Iron deficiency anemia secondary to blood loss (chronic) Other hyperlipidemia Type 2 diabetes mellitus without complication, without long-term current use of insulin Vitamin D deficiency Dermoid cyst of right ear Tobacco dependency Tobacco use disorder Primary hypertension ([facility])- Primary Unspecified essential hypertension Type 2 diabetes mellitus without complication, without long-term current use of insulin Other hyperlipidemia Asthma with COPD (chronic obstructive pulmonary disease) ([facility]) Non-recurrent acute serous otitis media of left ear Influenza A- Primary Influenza with other respiratory manifestations Chronic obstructive pulmonary disease, unspecified COPD type ([facility]) Acute hypoxic respiratory failure ([facility]) Type 2 diabetes mellitus without complication, without long-term current use of insulin Primary hypertension ([facility] Unspecified essential hypertension Benign neoplasm of cranial nerves (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 ([facility]) Scalp laceration, sequela- Primary Cigarette nicotine dependence without complication COPD exacerbation ([facility]) Obstructive chronic bronchitis with exacerbation Type 2 diabetes mellitus without complication, without long-term current use of insulin- Primary Chronic obstructive pulmonary disease, unspecified COPD type ([facility]) Primary hypertension ([facility]) Unspecified essential hypertension Vitamin D deficiency Iron deficiency anemia due to chronic blood loss Iron deficiency anemia secondary to blood loss (chronic) Cigarette nicotine dependence without complication Recurrent major depressive disorder, in full remission ([facility]) Generalized anxiety disorder ([facility]) Generalized anxiety disorder Screening mammogram, encounter for Other hyperlipidemia Acute hypoxic respiratory failure ([facility]) Iron deficiency anemia due to chronic blood loss Iron deficiency anemia secondary to blood loss (chronic) documented in this encounter [facility]* Diagnosis Iron deficiency anemia due to chronic blood loss- Primary Iron deficiency anemia secondary to blood loss (chronic) Current smoker Other hyperlipidemia Moderate persistent asthma without complication ([facility]) Type 2 diabetes mellitus without complication, without long-term current use of insulin Screening mammogram, encounter for Recurrent major depressive disorder, in full remission ([facility]) Asthma with COPD (chronic obstructive pulmonary disease) ([facility])- Primary Iron deficiency anemia due to chronic blood loss Iron deficiency anemia secondary to blood loss (chronic) Type 2 diabetes mellitus without complication, without long-term current use of insulin Primary hypertension ([facility]) Unspecified essential hypertension Asthma with COPD (chronic obstructive pulmonary disease) ([facility]/HCC)- Primary Primary hypertension (CMS/HCC) Unspecified essential hypertension Type 2 diabetes mellitus without complication, without long-term current use of insulin Primary hypertension ([facility]/HCC)- Primary Unspecified essential hypertension Asthma with COPD (chronic obstructive pulmonary disease) ([facility]/HCC) Iron deficiency anemia due to chronic blood loss Iron deficiency anemia secondary to blood loss (chronic) Other hyperlipidemia Type 2 diabetes mellitus without complication, without long-term current use of insulin Vitamin D deficiency Dermoid cyst of right ear Tobacco dependency Tobacco use disorder Primary hypertension ([facility]/HCC)- Primary Unspecified essential hypertension Type 2 diabetes mellitus without complication, without long-term current use of insulin Other hyperlipidemia Asthma with COPD (chronic obstructive pulmonary disease) ([facility]) Non-recurrent acute serous otitis media of left ear Influenza A- Primary Influenza with other respiratory manifestations Chronic obstructive pulmonary disease, unspecified COPD type ([facility]/HCC) Acute hypoxic respiratory failure ([facility]) Type 2 diabetes mellitus without complication, without long-term current use of insulin Primary hypertension ([facility]) Unspecified essential hypertension Benign neoplasm of cranial nerves ([facility]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 ([facility]) Scalp laceration, sequela- Primary Cigarette nicotine dependence without complication COPD exacerbation ([facility]) Obstructive chronic bronchitis with exacerbation Type 2 diabetes mellitus without complication, without long-term current use of insulin- Primary Chronic obstructive pulmonary disease, unspecified COPD type ([facility]/HCC) Primary hypertension ([facility]) Unspecified essential hypertension Vitamin D deficiency Iron deficiency anemia due to chronic blood loss Iron deficiency anemia secondary to blood loss (chronic) Cigarette nicotine dependence without complication Recurrent major depressive disorder, in full remission ([facility]) Generalized anxiety disorder ([facility]) Generalized anxiety disorder Screening mammogram, encounter for Other hyperlipidemia Acute hypoxic respiratory failure ([facility]/HCC) Asthma with COPD (chronic obstructive pulmonary disease) ([facility]) Chronic obstructive pulmonary disease, unspecified COPD type ([facility]/HCC) documented in this encounter [facility] HealthcareEvaluation note* Diagnosis Iron deficiency anemia due to chronic blood loss- Primary Iron deficiency anemia secondary to blood loss (chronic) Current smoker Other hyperlipidemia Moderate persistent asthma without complication ([facility]) Type 2 diabetes mellitus without complication, without long-term current use of insulin Screening mammogram, encounter for Recurrent major depressive disorder, in full remission ([facility]/HCC) Asthma with COPD (chronic obstructive pulmonary disease) (CMS/HCC)- Primary Iron 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) Type 2 diabetes mellitus without complication, without long-term current use of insulin Primary hypertension ([facility]/HCC) Unspecified essential hypertension Asthma with COPD (chronic obstructive pulmonary disease) ([facility]/HCC)- Primary Primary hypertension (CMS/HCC) Unspecified essential hypertension Type 2 diabetes mellitus without complication, without long-term current use of insulin Primary hypertension ([facility]/HCC)- Primary Unspecified essential hypertension Asthma with COPD (chronic obstructive pulmonary disease) ([facility]/HCC) Iron deficiency anemia due to chronic blood loss Iron deficiency anemia secondary to blood loss (chronic) Other hyperlipidemia Type 2 diabetes mellitus without complication, without long-term current use of insulin Vitamin D deficiency Dermoid cyst of right ear Tobacco dependency Tobacco use disorder Primary hypertension ([facility]/HCC)- Primary Unspecified essential hypertension Type 2 diabetes mellitus without complication, without long-term current use of insulin Other hyperlipidemia Asthma with COPD (chronic obstructive pulmonary disease) ([facility]) Non-recurrent acute serous otitis media of left ear Influenza A- Primary Influenza with other respiratory manifestations Chronic obstructive pulmonary disease, unspecified COPD type ([facility]/HCC) Acute hypoxic respiratory failure ([facility]) Type 2 diabetes mellitus without complication, without long-term current use of insulin Primary hypertension ([facility]) Unspecified essential hypertension Benign neoplasm of cranial nerves ([facility]/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 ([facility]) Scalp laceration, sequela- Primary Cigarette nicotine dependence without complication COPD exacerbation ([facility]) Obstructive chronic bronchitis with exacerbation Type 2 diabetes mellitus without complication, without long-term current use of insulin- Primary Chronic obstructive pulmonary disease, unspecified COPD type ([facility]/HCC) Primary hypertension ([facility]) Unspecified essential hypertension Vitamin D deficiency Iron deficiency anemia due to chronic blood loss Iron deficiency anemia secondary to blood loss (chronic) Cigarette nicotine dependence without complication Recurrent major depressive disorder, in full remission ([facility]/HCC) Generalized anxiety disorder ([facility]) Generalized anxiety disorder Screening mammogram, encounter for Other hyperlipidemia Acute hypoxic respiratory failure ([facility]/HCC) Acquired hypothyroidism ([facility]/HCC)- Primary Unspecified hypothyroidism documented in this encounter [facility] HealthcareEvaluation note* Diagnosis Iron deficiency anemia due [...] Tobacco dependency Tobacco use disorder Primary hypertension ([facility]/HCC)- Primary Unspecified essential hypertension Type 2 diabetes mellitus without complication, without long-term current use of insulin Other hyperlipidemia Asthma with COPD (chronic obstructive pulmonary disease) ([facility]/HCC) Non-recurrent acute serous otitis media of left ear Influenza A- Primary Influenza with other respiratory manifestations Chronic obstructive pulmonary disease, unspecified COPD type (CMS/HCC) Acute hypoxic respiratory failure (CMS/[facility]) Type 2 diabetes mellitus without complication, without long-term current use of insulin Primary hypertension ([facility]/HCC) Unspecified essential hypertension Benign neoplasm of cranial nerves ([facility]/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 ([facility]) Scalp laceration, sequela- Primary Cigarette nicotine dependence without complication COPD exacerbation (CMS/HCC) Obstructive chronic bronchitis with exacerbation Type 2 diabetes mellitus without complication, without long-term current use of insulin- Primary Chronic obstructive pulmonary disease, unspecified COPD type (CMS/HCC) Primary hypertension ([facility]/HCC) Unspecified essential hypertension Vitamin D deficiency Iron deficiency anemia due to chronic blood loss Iron deficiency anemia secondary to blood loss (chronic) Cigarette nicotine dependence without complication Recurrent major depressive disorder, in full remission (CMS/HCC) Generalized anxiety disorder (CMS/HCC) Generalized anxiety disorder Screening mammogram, encounter for Other hyperlipidemia Acute hypoxic respiratory failure ([facility]/HCC) Depression, unspecified (CMS/HCC) documented in this encounter [facility] HealthcareEvaluation note* Diagnosis Iron deficiency anemia due to chronic blood loss- Primary Iron deficiency anemia secondary to blood loss (chronic) Current smoker Other hyperlipidemia Moderate persistent asthma without complication ([facility]/HCC) Type 2 diabetes mellitus without complication, without long-term current use of insulin Screening mammogram, encounter for Recurrent major depressive disorder, in full remission ([facility]) Asthma with COPD (chronic obstructive pulmonary disease) ([facility])- Primary Iron deficiency anemia due to chronic blood loss Iron deficiency anemia secondary to blood loss (chronic) Type 2 diabetes mellitus without complication, without long-term current use of insulin Primary hypertension ([facility]/HCC) Unspecified essential hypertension Asthma with COPD (chronic obstructive pulmonary disease) ([facility])- Primary Primary hypertension ([facility]/HCC) Unspecified essential hypertension Type 2 diabetes mellitus without complication, without long-term current use of insulin Primary hypertension ([facility])- Primary Unspecified essential hypertension Asthma with COPD (chronic obstructive pulmonary disease) ([facility]) Iron deficiency anemia due to chronic blood loss Iron deficiency anemia secondary to blood loss (chronic) Other hyperlipidemia Type 2 diabetes mellitus without complication, without long-term current use of insulin Vitamin D deficiency Dermoid cyst of right ear Tobacco dependency Tobacco use disorder Primary hypertension ([facility]/HCC)- Primary Unspecified essential hypertension Type 2 diabetes mellitus without complication, without long-term current use of insulin Other hyperlipidemia Asthma with COPD (chronic obstructive pulmonary disease) ([facility]) Non-recurrent acute serous otitis media of left ear Influenza A- Primary Influenza with other respiratory manifestations Chronic obstructive pulmonary disease, unspecified COPD type ([facility]) Acute hypoxic respiratory failure ([facility]) Type 2 diabetes mellitus without complication, without long-term current use of insulin Primary hypertension ([facility]/HCC) Unspecified essential hypertension Benign neoplasm of cranial nerves ([facility]/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 ([facility]) Scalp laceration, sequela- Primary Cigarette nicotine dependence without complication COPD exacerbation ([facility]) Obstructive chronic bronchitis with exacerbation Type 2 diabetes mellitus without complication, without long-term current use of insulin- Primary Chronic obstructive pulmonary disease, unspecified COPD type ([facility]/HCC) Primary hypertension ([facility]) Unspecified essential hypertension Vitamin D deficiency Iron deficiency anemia due to chronic blood loss Iron deficiency anemia secondary to blood loss (chronic) Cigarette nicotine dependence without complication Recurrent major depressive disorder, in full remission ([facility]) Generalized anxiety disorder (CMS/HCC) Generalized anxiety disorder Screening mammogram, encounter for Other hyperlipidemia Acute hypoxic respiratory failure (CMS/[facility]) Osteoarthritis, unspecified osteoarthritis type, unspecified site- Primary documented in this encounter [facility] HealthcareEvaluation note* Diagnosis Iron deficiency anemia due [...] pulmonary disease) (HCC) documented in this encounter [facility] HealthcareEvaluation note* Diagnosis Iron deficiency anemia due [...] esophagitis Depression, unspecified documented in this encounter [facility] HealthcareEvaluation note* Diagnosis Iron deficiency anemia due [...] COPD type (HCC) documented in this encounter [facility] HealthcareEvaluation note* Diagnosis Iron deficiency anemia due [...] abnormal blood chemistry documented in this encounter [facility] HealthcareEvaluation note* Diagnosis Iron deficiency anemia due [...] major depressive disorder, in full remissionacuteSept2024 10:36am [facility] Work Phone: Hospital Discharge instructions No data available for this section [facility] instructionsAmbulatory Orders* Referral to Wound Care Time Frame: 08/22/25, Location: None [facility] Work Phone: InstructionsNot on filedocumented in this encounter [facility]Not on filedocumented in this encounter [facility]ructionsNot on filedocumented in this encounter [facility] No data available for this section [facility] HospitalReason for referral (narrative)* Consultation (Routine) - Pending ReviewSpecialtyDiagnoses / ProceduresReferred By Contact Referred To ContactGastroenterology Diagnoses Iron deficiency anemia due to chronic blood loss Procedures [facility] OFFICE/OUTPATIENT NEW HIGH MDM 60 MINUTES Daniel Cardoso, GREG [address] [place] [phone] Referral IDStatusReasonStart DateExpiration DateVisits RequestedVisits [id number] Review Specialty Services Required / SONI Granger for referral (narrative)No reason for referral information availableSt. [facility] Work Phone: Summary Purpose Family History Relationship [...] +, Exacerbation COPD December 13, 2024 12:54pm [facility] 12/09January 04, 2025 8:55am Reason for Visit [...] Admit Date Edema of both lower extremities [facility] 2024 10:36am Elevated TSH July [...] Admit Date Edema of both lower extremities [facility] 2024 10:36am Elevated TSH July [...] Admit Date Edema of both lower extremities [facility] 2024 10:36am Elevated TSH July [...] section and content) DATE CREATED AUTHOR 10/22/2018 [employer] DATE CREATED AUTHOR AUTHOR'S ORGANIZ ATION 01/09/2023 [facility] DATE CREATED AUTHOR AUTHOR'S ORGANIZ ATION 12/17/2023 [facility] DATE CREATED AUTHOR AUTHOR'S ORGANIZ ATION 12/17/2024 [facility] DATE CREATED AUTHOR AUTHOR'S ORGANIZ ATION 06/28/2025 [facility] DATE CREATED AUTHOR AUTHOR'S ORGANIZ ATION 07/20/2025 [facility] Patient Care team informatio n (unrecognized section and content) Team MemberRelationshipSpecialtyStart DateEnd Date Shaikh Sánchez MD [address] [place] [phone] PCP - Linda MI11/14/23 Shaikh Sánchez MD [address] [place] [address] PCP - GeneralInternal Medicine01/16/24 Zamzam Wheeler [employer]HEMATICS [employer] [address] [place] [address] Nurse PractitionerInternal Medicine01/16/24 Kirstin Carreon LPN Licensed Practical NurseFamily Medicine07/27/24Team MemberRelationshipSpecialty Start DateEnd Date Shaikh Sánchez MD [address] [place] [address] PCP - Linda MORALES11/14/23 Ian Soares MD [address] [place] [address] PCP - GeneralFamily Gldgkjla00/29/24 Zamzam Wheeler NP [address] [place] [address] Nurse PractitionerInternal Medicine01/16/24 Kirstin Carreon LPN Licensed Practical NurseFamily Medicine07/27/24 Daniel Cardoso NP [address] [place] [address] Nurse PractitionerFamily Ievnxkny33/29/24Team MemberRelationshipSpecialtyStart DateEnd Date Shaikh Sánchez MD [address] [place] [address] PCP - Linda MORALES11/14/23 Ian Soares MD [address] [place] [address] PCP - GeneralFamily Aixwthvf96/29/24 Zamzam Wheeler NP [address] [place] [address] Nurse PractitionerInternal Medicine01/16/24 Kirstin Carreon LPN Licensed Practical NurseFamily Medicine07/27/24 Daniel Cardoso, GREG [address] [place] [address] Nurse PractitionerFamily Egdhdens11/29/24Team MemberRelationshipSpecialtyStart DateEnd Date Shaikh Sánchez MD [address] [place] [address] PCP - [place] MA11/14/23 Ian Soares MD [address] [place] [address] PCP - GeneralFamily Mzmpmhjh23/29/24 Zamzam Wheeler NP [address] [place] [address] Nurse PractitionerInternal Medicine01/16/24 Kirstin Carreon LPN Licensed Practical NurseFamily Medicine07/27/24 Daniel Cardoso, GREG [address] [place] [address] Nurse PractitionerFamily Lljnhevr58/29/24Team MemberRelationshipSpecialtyStart DateEnd Date Shaikh Sánchez MD [address] [place] [address] PCP - Linda MORALES11/14/23 Ina Soares MD [address] [place] [address] PCP - GeneralFamily Iopckhjd23/29/24 Zamzam Wheeler, MATHEMATICS LECTURER [address] [place] [address] Nurse PractitionerInternal Medicine01/16/24 Kirstin Carreon LPN Licensed Practical NurseFamily Medicine07/27/24 Daniel Cardoso, GREG [address] [place] [address] Nurse PractitionerFamily Yjhoavfy35/29/24Team MemberRelationshipSpecialtyStart DateEnd Date Shaikh Sánchez MD [address] [place] [address] PCP - Linda MI11/14/23 Shaikh Sánchez MD [address] [place] [address] PCP - GeneralInternal Medicine01/16/24 Zamzam Wheeler, MATHEMATICS LECTURER [address] [place] [address] Nurse PractitionerInternal Medicine01/16/24 Gustavo Romero LPN Licensed Practical NurseFamily Medicine07/04/24Team MemberRelationshipSpecialty Start DateEnd Date Shaikh Sánchez MD [address] [place] [address] PCP - [place] MI11/14/23 Ian Soares MD [address] [place] [address] PCP - GeneralFamily Pexaznmo00/29/24 Zamzam Wheeler, MATHEMATICS LECTURER [address] [place] [address] Nurse PractitionerInternal Medicine01/16/24 Daniel Cardoso NP [address] [place] [address] Nurse PractitionerFamily Wrnlyoep53/29/24 [facility]09/24/24Team MemberRelationshipSpecialtyStart DateEnd Date Shaikh Sánchez MD [address] [place] [address] PCP - Linda MI11/14/23 Shaikh Sánchez MD [address] [place] [address] PCP - GeneralInternal Medicine01/16/24 Zamzam Wheeler, MATHEMATICS LECTURER [address] [place] [address] Nurse PractitionerInternal Medicine01/16/24 Gustavo Romero LPN Licensed Practical NurseFamily Medicine07/04/24Team MemberRelationshipSpecialty Start DateEnd Date Shaikh Sánchez MD [address] [place] [address] PCP - Linda MI11/14/23 Shaikh Sánchez MD [address] [place] [address] PCP - GeneralInternal Medicine01/16/24 Zazmam Wheeler, MATHEMATICS LECTURER [address] [place] [address] Nurse PractitionerInternal Medicine01/16/24 Gustavo Romero LPN Licensed Practical NurseFamily Medicine07/04/24Team MemberRelationshipSpecialty Start DateEnd Date Shaikh Sánchez MD [address] [place] [address] PCP - Linda MI11/14/23 Shaikh Sánchez MD [address] [place] [address] [facility] - [facility]/24 Zamzam Wheeler MATHEMATICS LECTURER [address] [place] [phone] Nurse Pract[facility]erB[facility] Payson Medical Centernal [facility]01/16/24 Gustavo Romero LPN Licensed Practical NurseFamily [facility]07/04/24Team MemberRelationshipSpecialty Start DateEnd Date Shaikh Sánchez MD [address] [place] [address] PCP - Linda MI11/14/23 Shaikh Sánchez MD [address] [place] [address] PCP - GeneralInternal Medicine01/16/24 Zamzam Wheeler, GREG [address] [place] [address] Nurse PractitionerInternal Medicine01/16/24 Kirstin Carreon LPN Licensed Practical NurseFamily Medicine07/27/24Team MemberRelationshipSpecialty Start DateEnd Date Shaikh Sánchez MD [address] [place] [address] PCP - Linda MI11/14/23 Ian Soares MD [address] [place] [address] PCP - GeneralFamily Mpsgvapt43/29/24 Zamzam Wheeler NP [address] [place] [address] Nurse PractitionerInternal Medicine01/16/24 Daniel Cardoso NP [address] [place] [address] Nurse PractitionerFamily Hyecnvtp88/29/24 Arturo Chanel [place] Family Otxurslz37/11/24Team MemberRelationshipSpecialtyStart DateEnd Date Shaikh Sánchez MD [address] [place] [address] PCP - Linda MI11/14/23 Ian Soares MD [address] [place] [address] PCP - GeneralFamily Xetldinv94/29/24 Zamzam Wheeler NP [address] [place] [address] Nurse PractitionerInternal Medicine01/16/24 Daniel Cardoso NP [address] [place] [address] [facility]09/11/24 Arturo Chanel MA [facility]09/24/24Team MemberRelationshipSpecialtyStart DateEnd Date Shaikh Sánchez MD [address] [place] [address] PCP - [facility]11/14/23 Ian Soares MD [address] [place] [address] PCP - [facility]09/11/24 Zamzam Wheeler NP [address] [place] [address] Nurse PractitionerInternal [facility]01/16/24 Daniel Cardoso NP [address] [place] [address] Nurse Pract[facility]FaM[facility]09/11/24 Arturo Chanel MA [facility]09/24/24 Team Status: Active Member Role Status Dates LINDA FrancoisC Primary Care Provider Ac tive Team Status: Inactive Member Role Status Dates Daniel Cardoso MATHEMATICS LECTURER-C Primary Care Provider Ac tive Start: December [...] Member Role Status Dates Daniel Cardoso , MATHEMATICS LECTURER-C Primary Care Provider Ac tive Start: December [...] DateEnd Date Gianna Isabel MD PCP - GeneralOs[facility] Centerly Medicine02/07/17 Team Status: Inactive Member Role Status Dates Daniel Cardoso , MATHEMATICS LECTURER-C Primary Care Provider Ac tive Start: December [...] Active Member Role Status Dates Daniel Cardoso MATHEMATICS LECTURER-C Primary Care Provider Ac tive Start: December 10, 2024 Neville Wakefield ProviderActiveStart: December 10, 2024 Team Status: Active Member Role Status Dates Daniel Cardoso MATHEMATICS LECTURER-C Primary Care Provider Ac tive Start: December [...] Inactive Member Role Status Dates Daniel Cardoso MATHEMATICS LECTURER-C Primary Care Provider Ac tive Start: January 04, 2025 End: January 04, 2025Huang Hinkle ProviderActiveStart: January 04, 2025 End: January 04, 2025Team MemberRelationshipSpecialtyStart DateEnd Date Ian Soares MD [address] [place] [address] [facility] - [facility] Okmxfbeq96/29/24 Zamzam Wheeler NP [facility]01/16/24 Daniel Cardoso NP [address] [place] [address] Nurse [facility]09/11/24 [facility]09/24/24Team MemberRelationshipSpecialtyStart DateEnd Date Ian Soares MD [address] [place] [address] PCP - [facility]09/11/24 Zamzam Wheeler NP [facility]01/16/24 Daniel Cardoso NP [address] [place] [address] Nurse Pract[facility]09/11/24 Arturo hCanelWhidbeyHealth [facility]09/24/24Team MemberRelationshipSpecialtyStart DateEnd Date Shaikh Sánchez MD [address] [place] [address] PCP - [facility]11/14/23 Ian Soares MD [address] [place] [address] PCP - [facility]09/11/24 Zamzam Wheeler NP [address] [place] [address] Nurse PractitionerInternal Medicine01/16/24 Daniel Cardoso NP [address] [place] [address] Nurse PractitionerFamily Oneytxvf48/29/24 Arturo Chanel MA [facility]09/24/24Team MemberRelationshipSpecialtyStart DateEnd Date Shaikh Sánchez MD [address] [place] [address] PCP - [place]11/14/23 Ian Soares MD [address] [place] [address] PCP - Generalmily Jadyooys85/29/24 Zamzam Wheeler NP [address] [place] [address] Nurse PractitionerInternal Medicine01/16/24 Daniel Cardoso NP [address] [place] [address] Nurse PractitionerFapaly Vnbzmozk44/29/24 Arturo Chanel MA [facility]09/24/24Team MemberRelationshipSpecialtyStart DateEnd Date Shaikh Sánchez MD [address] [place] [address] PCP - [place]11/14/23 Ian Soares MD [address] [place] [address] PCP - GeneralFamily Vrtewzpq06/29/24 Zamzam Wheeler NP [address] [place] [address] Nurse PractitionerInternal [facility]01/16/24 Arturo Chanel, CARMEN [facility]09/24/24 La Pack NP [address] [place] [address] [facility] Medicine02/06/25Team MemberRelationshipSpecialtyStart DateEnd Date Shaikh Sánchez MD [address] [place] [address] PCP - [facility]11/14/23 Ian Soares MD [address] [place] [address] PCP - GeneralOsceola [facility] Centerly Cffdbwos91/29/24 Zamzam Wheeler NP [address] [place] [address] Nurse PractitionerInternal Medicine01/16/24 Arturo Chanel, [facility]09/24/24 La Pack NP [address] [place] [address] Nurse PractitionerP[facility]02/06/25Te MemberRelationshipSpecialtyStart DateEnd Date Shaikh Sánchez MD [address] [place] [address] PCP - [place]11/14/23 Ian Soares MD [address] [place] [address] PCP - GeneralFamily Brfamzdn86/29/24 Zamzam Wheeler, MATHEMATICS LECTURER [address] [place] [address] Nurse PractitionerInternal Medicine01/16/24 Arturo Chanel, CARMEN [facility]09/24/24 La Pack NP [address] [place] [address] Nurse Practitionermily Medicine02/06/25Team MemberRelationshipSpecialtyStart DateEnd Date Shaikh Sánchez MD [address] [place] [address] PCP - [place]11/14/23 Ian Soares MD [address] [place] [address] PCP - GeneralFamily Nacfpfma81/29/24 Zamzam Wheeler MATHEMATICS LECTURER [address] [place] [address] Nurse PractitionerInternal Medicine01/16/24 Arturo Chanel, CARMEN [facility]09/24/24 La Pack NP [address] [place] [address] Nurse PractitionerFami Medicine02/06/25Team MemberRelationshipSpecialtyStart DateEnd Date Shaikh Sánchez MD [address] [place] [address] PCP - [place]11/14/23 Ian Soares MD [address] [place] [address] [facility] - [facility] Bqqaawtg35/29/24 Zamzam Wheeler NP [address] [place] [address] Nurse PractitionerInternal Medicine01/16/24 Arturo Chanel [facility]09/24/24 La Pack NP [address] [place] [address] Nurse Practitioner[facility]02/06/25Team MemberRelationshipSpecialtyStart DateEnd Date Shaikh Sánchze MD [address] [place] [address] PCP - [place]11/14/23 Ian Soares MD [address] [place] [address] [facility] - [facility] Wxgvukaj12/29/24 Zamzam Wheeler MATHEMATICS LECTURER [address] [place] [address] Nurse PractitionerB[facility]ayson Medical Centernal Medicine01/16/24 Arturo Chanel MA Family Laumynka23/11/24 La Pack, GREG [address] [place] [address] Nurse PractitionerFamily Medicine02/06/25Team MemberRelationshipSpecialtyStart DateEnd Date Shaikh Sánchez MD [address] [place] [address] PCP - [place]11/14/23 Ian Soares MD [address] [place] [address] PCP - GeneralFamily Xtowkbyb00/29/24 Zamzam Wheeler NP [address] [place] [address] [facility]01/16/24 Arturo Chanel MA [facility]09/24/24 La Pack, GREG [address] [place] [address] Nurse PractitionerOsceola Regional Health Centerly Medicine02/06/25Team MemberRelationshipSpecialtyStart DateEnd Date Shaikh Sánchez MD [address] [place] [address] PCP - [place]11/14/23 Ian Soares MD [address] [place] [address] PCP - GeneralFamily Zdvjjcnk52/29/24 Zamzam Wheeler NP [address] [place] [address] Nurse PractitionerInternal Medicine01/16/24 Arturo Chanel MA [address] [place] [address] [facility]09/24/24 La Pack, GREG [address] [place] [address] Nurse PractitionerP[facility]02/06/25Te MemberRelationshipSpecialtyStart DateEnd Date Shaikh Sánchez MD [address] [place] [address] PCP - [facility]11/14/23 Ian Soares MD [address] [place] [address] PCP - GeneralP[facility]09/11/24 Zamzam Wheeler NP [address] [place] [address] Nurse PractitionerInternal Medicine01/16/24 Arturo Chanel MA [address] [place] [address] [facility]09/24/24 La Pack NP [address] [place] [address] Nurse PractitionerP[facility]02/06/25Team MemberRelationshipSpecialtyStart DateEnd Date Shaikh Sánchez MD [address] [place] [address] PCP - [place]11/14/23 Ian Soares MD [address] [place] [address] [facility] - [facility] Xrpjaere39/29/24 Zamzam Wheeler, MATHEMATICS LECTURER [address] [place] [address] Nurse Pract[facility]er[facility] Medicine01/16/24 Arturo Chanel, [place] [address] [place] [address] Family Qknfupem84/11/24 La Pack NP [address] [place] [address] Nurse PractitionerP[facility]02/06/25Team MemberRelationshipSpecialtyStart DateEnd Date Shaikh Sánchez MD [address] [place] [address] PCP - [place]11/14/23 Ian Soares MD [address] [place] [address] PCP - [facility] Qnjmyxqo73/29/24 Zamzam Wheeler, MATHEMATICS LECTURER [address] [place] [address] Nurse PractitionerInternal [facility]01/16/24 Arturo Chanel MA [address] [place] [address] [facility]09/24/24 La Pack NP [address] [place] [address] Nurse PractitionerP[facility]02/06/25Team MemberRelationshipSpecialtyStart DateEnd Date Shaikh Sánchez MD [address] [place] [address] PCP - [facility]11/14/23 Ian Soares MD [address] [place] [address] PCP - [facility]09/11/24 Zamzam Wheeler NP [address] [place] [address] Nurse PractitionerInternal [facility]01/16/24 Arturo Chanel MA [address] [place] [address] [facility]09/24/24 La Pack NP [address] [place] [address] Nurse PractitionerP[facility]02/06/25Te MemberRelationshipSpecialtyStart DateEnd Date Shaikh Sánchez MD [address] [place] [address] PCP - [place]11/14/23 Ian Soares MD [address] [place] [address] PCP - GeneralFamily Hebzgbsa35/29/24 Zamzam Wheeler MATHEMATICS LECTURER [address] [place] [address] Nurse PractitionerInternal Medicine01/16/24 Arturo Chanel, [place] [address] [place] [place] [address] Family Anipqtvs58/11/24 La Pack NP [address] [place] [address] Nurse PractitionerP[facility]02/06/25Team MemberRelationshipSpecialtyStart DateEnd Date Shaikh Sánchez MD [address] [place] [address] PCP - [place]11/14/23 Ian Soares MD [address] [place] [address] PCP - GeneralFami Uawnefxf11/29/24 Zamzam Wheeler NP [address] [place] [address] Nurse PractitionerInternal Medicine01/16/24 La Pack NP [address] [place] [address] Nurse PractitionerFanew england rehabilitation [facility] Medicine02/06/25 Team Status: Active Member Role Status Dates La Pack , MATHEMATICS LECTURER-C Primary Care Provider Active Team Status: Inactive Member Role Status Dates La Pack , MATHEMATICS LECTURER-C Primary Care Provider Active Start: July 31, 2025 End: July 31, 2025La Pack , MATHEMATICS LECTURER-CAttending ProviderActiveStart: July 31, 2025 End: July 31, 2025 Team Status: Active Member Role Status Dates La Pack , MATHEMATICS LECTURER-C Primary Care Provider Active Start: August 12, 2025 La Pack , MATHEMATICS LECTURER-CAttending ProviderActiveStart: August 12, 2025 Team Status: Inactive Member Role Status Dates La Pack , MATHEMATICS LECTURER-C Primary Care Provider Active Start: August 22, 2025 End: August 22, 2025La Pack , MATHEMATICS LECTURER-CAttending ProviderActiveStart: August 22, 2025 End: August 22, 2025Team MemberRelationshipSpecialtyStart DateEnd Date Shaikh Sánchez MD PCP - GeneralInternal Medicine Shaikh Sánchez MD [address] [place] [address] PCP - [place]11/14/23 Shaikh Sánchez MD [address] [place] [address] PCP - GeneralInternal Medicine01/15/2410 [place] [address] [place] [address] PCP - GeneralFamily Uonnauue11/29/24 Zamzam Wheeler NP [address] [place] [address] Nurse PractitionerB[facility] Payson Medical Centernal Medicine01/16/24 Funmilayo Lombardo, ARTICULATION OFFICER [address] [place] [address] Social WorkerSsumma [facility] Gustavo Romero LPN Licensed Practical NurseFamily Medicine Kirstin Carreon LPN [address] [place] [address] Licensed Practical NurseFamily Medicine07/27/2411 [place] [address] [place] [address] Nurse PractitionerFamily Stiknybh55/29/243 Arturo Chanel MA [address] [place] [address] Family Uokwblew64/11/248 La Pack NP [address] [place] [address] Nurse PractitionerFamily Medicine02/06/25Team MemberRelationshipSpecialtyStart DateEnd Date Shaikh Sánchez MD [address] [place] [address] PCP - [place]11/14/23 Shaikh Sánchez MD [address] [place] [address] PCP - GeneralInternal Medicine01/15/2410 [place] [address] [address] PCP - GeneralFamily Kxbhwsmy26/29/24 Zamzam Wheeler NP [address] [place] [address] Nurse PractitionerInternal Medicine01/16/24 Grupo Funmilayo, ARTICULATION OFFICER [address] [address] Social WorkerSocial Services Gustavo Romero LPN Licensed Practical NurseFamily Medicine Kirstin Carreon LPN [address] [address] Licensed Practical NurseFamily Medicine07/27/2411 [place] [address] [address] Nurse PractitionerFamily Rrqptdxc97/29/243 Arturo Chanel, [place] [address] [place] [address] Family Vzzjpdlr68/11/248 La Pack NP [address] [place] [address] Nurse PractitionerFamily Medicine02/06/25 Team Status: Active Member Role/Relationship Status Dates SILVER Norman Primary Care Provider Active Team Status: Inactive Member Role/Relationship Status Dates SILVER Norman Primary Care Provider Active Start: July 31, 2025 End: July 31, 2025La Pack , MATHEMATICS LECTURER-CAttending ProviderActiveStart: July 31, 2025 End: July 31, 2025 Team Status: Active Member Role/Relationship Status Dates La Pack , MATHEMATICS LECTURER-C Primary Care Provider Active Start: August 12, 2025 La Pack , MATHEMATICS LECTURER-CAttending ProviderActiveStart: August 12, 2025 Team Status: Inactive Member Role/Relationship Status Dates La Pack , MATHEMATICS LECTURER-C Primary Care Provider Active Start: August 22, 2025 End: August 22, 2025La Pack , MATHEMATICS LECTURER-CAttending ProviderActiveStart: August 22, 2025 End: August 22, 2025 Team Status: Active Member Role/Relationship Status Dates La Pack , MATHEMATICS LECTURER-C Primary Care Provider Active Start: August 27, 2025 La Pack , MATHEMATICS LECTURER-CAttending ProviderActiveStart: August 27, 2025 Team Status: Inactive Member Role/Relationship Status Dates La Pack , MATHEMATICS LECTURER-C Primary Care Provider Active Start: September 12, 2025 End: September 12, 2025La Pack , MATHEMATICS LECTURER-CAttending ProviderActiveStart: September 12, 2025 End: September 12, 2025 Reason for Visit (unrecogniz ed section and content) ReasonOnset DateCommentsMed Cczbkx844ReasonOnset DateCommentsMed Refill 4ReasonOnset DateCommentsMed Dfszpx2509/11/2024easonCommentsFollow-up ReasonOnset DateCommentsMed Krhuyf854ReasonOnset DateCommentsMed Refill 10/22/2024easonCommentsMed RefillReasonOnset DateCommentsMed Psszkj6907/23/2024 ReasonOnset DateCommentsMed Tpmbup594ReasonOnset DateCommentsMed Refill 4ReasonOnset DateCommentsMed Cewqie6911/27/2024ReasonOnset DateComments Med Cdcwbx2512/06/2024ReasonCommentsFollow-upHospital f/uSore ThroatEaracheRight earReasonCommentsSuture / Staple RemovalheadReasonOnset DateCommentsMed Refill 02/25/2025ReasonOnset DateCommentsMed Xqrxxf2006/05/2025ReasonCommentsDiabetes Goals (unrecognized section and content) Goals may [...] BE BASED ON THE PRIMARY CLINICAL RECORDS. [facility] [employer] provides no warranty or guarantee of the accuracy or completeness of information in this document.
== END 2025-10-15 13:40 | disposition home or self-care (01) ==
LOC: WC 13:39
PROVIDERS: PCP Nurse Practitioner; Visit Provider Physician Assistant
DX: I87.333 Chronic venous hypertension (idiopathic) with ulcer and inflammation of bilateral lower extremity (principal); L97.811 Non-pressure chronic ulcer of other part of right lower leg limited to breakdown of skin; L97.821 Non-pressure chronic ulcer of other part of left lower leg limited to breakdown of skin; R60.1 Generalized edema
CPT/HCPCS: 29580

== ENCOUNTER 2025-10-22 07:31 | Inpatient (IN) | payer MEDICARE, MEDICAID, SELFPAY ==
[2025-10-22] VITALS (42 sets, daily range): BP systolic 90–148; BP diastolic 52–103; PULSE 72–110; RESP 14; TEMP 35.7–37.1; O2SAT 82–99; BMI 26.6; BMI 27.3
--- NOTE | 2025-10-22 07:47 | ECG_ITS ---
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 Measurements Intervals [place] Rate: 89 P: 90 VT: 158 QRS: 34 QRSD: 112 T: 62 QT: 382 QTc: 429 Interpretive Statements 1100 Sinus rhythm 2450 Right bundle branch block 0102 ARTIFACT PRESENT 9150 abnormal ECG Compared to ECG 12/09/2024 16:06:39 Sinus tachycardia no longer present Left-axis deviation no longer present Electronically Signed On 10-22-2025 20:00:38 EST by LIZZIE BELLAMY M.D.
--- OUTSIDE RECORDS SUMMARY | 2025-10-22 07:52 | XMS_ITS | Clinical Summary ---
Author Organization [employer] Address [id number] [address] [place] [address] Care Team Providers Care Process Tank Tender Name Role Phone Russell Tillman MD Primary Care Provider Unava ilable Allergies No known active allergies Medications MedicationSigDispense QuantityRefillsLast FilledStart DateEnd DateStatus LIPITOR 40 mg tablet 01/09/2018Active polyethylene glycol (GLYCOLAX) 17 gram packet Take 17 g by mouth daily.Active metFORMIN (GLUCOPHAGE) 500 mg tablet Take 500 mg by mouth 2 (two) times a day with meals.Active lisinopril (PRINIVIL,ZESTRIL) 10 mg tablet Take 10 mg by mouth 2 (two) times a day.Active famotidine (PEPCID) 20 mg tablet Take 20 mg by mouth 2 (two) times a day.Active fluticasone (FLONASE) 50 mcg/actuation nasal spray Administer 1 spray into each nostril daily.Active cholecalciferol, vitamin D3, (VITAMIN D3) 1,000 units tablet Take 1,000 Units by mouth daily.Active multivitamin capsule Take 1 capsule by mouth daily.Active alendronate (FOSAMAX) 70 mg tablet Take 70 mg by mouth every 7 days. In a.m. with water on empty stomach, nothing else by mouth and remain upright for 30minActive docusate sodium (COLACE) 100 mg capsule Take 100 mg by mouth 2 (two) times a day.Active DOCOSAHEXANOIC ACID/EPA (FISH OIL ORAL) Take 1,000 mg by mouth daily.Active blood sugar diagnostic (glucose blood) strip by miscellaneous route.Active ammonium lactate 12-12 % kit Apply topically.Active calcium carbonate-vitamin D3 (CALCIUM 500 + D) 500 mg(1,250mg) -200 units per tablet Take 1 tablet by mouth 2 (two) times a day with meals.Active fexofenadine (NADIRA) 180 mg tablet Take 180 mg by mouth daily.Active meloxicam (MOBIC) 7.5 mg tablet Take 7.5 mg by mouth daily.Active omeprazole (PriLOSEC) 20 mg capsule Take 1 capsule by mouth daily.Active spironolactone (ALDACTONE) 25 mg tablet Take 1 tablet by mouth daily.Active ferrous sulfate (IRON ORAL) Take by mouth.Active Active Problems ProblemNoted DateDiagnosed DateOther abnormalities of gait and mobility 12/28/2024ute hypoxic respiratory hyigogm3712/24/2024spiration pneumonia 12/24/2024Influenza A012/24/2024igarette bbdmbf7312/24/2024Type 2 diabetes mellitus without complication, without long-term current use of insulin 12/24/20247379Wceyoay47/10/2025Rectal modsggkd22/16/2020Positive fecal occult blood test11/29/2019COPD (chronic obstructive pulmonary disease)Depression Family History Medical HistoryRelationNameCommentsColon cancerCousinmaternal sideOvarian cancer MotherRelationNameStatusCommentsBrotherAliveCousinmaternal sideAliveDaughter 1 AliveDaughter 2AliveFatherDeceasedMaternal GrandfatherDeceasedMaternal GrandmotherDeceasedMotherDeceasedPaternal GrandfatherDeceasedPaternal GrandmotherDeceasedSisterAliveSon 1AliveSon 2Alive Social History Tobacco UseTypesPacks/DayYears UsedDateSmoking Tobacco: ZvihujGmqktscxxa363 Smokeless Tobacco: Never Tobacco Cessation:Counseling Given: Yes Alcohol UseStandard Drinks/WeekCommentsNo0 (1 standard drink = 0.6 oz pure alcohol)ChildcareAnswerDate HdhlrymzRzfnvbssgRnwpdqa66/31/2019EmploymentAnswer Date IsdpszmkImjmzxrjgaSjpuacl86/31/2019Purpose - LifeAnswerDate RecordedPurpose and direction in myfpIrfaiiz21/11/2021CommentsUnknownSex and Gender InformationValueDate RecordedSex Assigned at BirthNot on fileLegal SexFemale 06/19/2015 11:26 AM EDTGender IdentityNot on fileSexual OrientationNot on file Last Filed Vital Signs Vital SignReadingTime TakenCommentsBlood Dyjtjrin579/8402 1:20 PM EST Fwgjo474901/01/2025 1:20 PM KAWKmrblaabgvi37.7 ??C (98.1 ??F)01/01/2025 1:20 PM ESTRespiratory Dlyk452801/01/2025 1:20 PM ESTOxygen Rljqfdbuqc99%01/01/2025 1:20 PM ESTInhaled Oxygen Concentration--Xijsjr68.5 kg (140 lb)12/25/2024 5:23 PM EST Ysinsw340.6 cm (5' 4 )12/18/2024 7:16 PM ESTBody Mass Index24.03012/18/2024 7:16 PM EST Plan of Treatment Health MaintenanceDue DateLast DoneCommentsDiabetic Ophthalmology Exam1953 Statin Use: Hsjvzguc1953Depression Cytrvpnbz67/08/1965Tobacco Screening 1965Diabetic Foot Exam1971DTaP,Tdap and Td Vaccines (1 - Tdap) 1972Zoster (Shingles) Vaccine (1 of 2)2003RSV ( or age 60+ yrs) (1 - Risk 60-74 years 1-dose series)2013Fall Risk Zxmoldqwx19/08/2018 Influenza Rdriser3007/15/2025dult BMI Cpzpsvert38 Medical Devices Not on file Insurance Care Teams Team MemberRelationshipSpecialtyStart DateEnd Date Russell Tillman MD PCP - [facility]02/07/17
--- OUTSIDE RECORDS SUMMARY | 2025-10-22 07:52 | XMS_ITS | Clinical Summary ---
Author Organization [facility] Address [address] [place] [address] Phone Care Team Providers Care Funeral Director/Embalmer/Owner Name Role Phone Unavailable Primary Care Provider Unavailabl e Social History Tobacco UseTypesPacks/DayYears UsedDateSmoking Tobacco: Never Assessed CommentsUnknownSex and Gender InformationValueDate RecordedSex Assigned at Not on fileLegal DzzWyzpsb29/26/2022 10:36 AM ESTGender IdentityNot on file Sexual OrientationNot on file Plan of Treatment Not on file
--- OUTSIDE RECORDS SUMMARY | 2025-10-22 07:53 | XMS_ITS | CCD ---
Author Organization [facility] CliniSyny Care Team Providers Care Glove Former Name Role Phone CHALO, DR GIANNA PACHECO [...] Consulting Unavailable SHAIKH SÁNCHEZ Primary Care Physician [phone] Windnagel, Zamzam Admitting Unavailable Windnagel, Zamzam Referring Unavailable Windnagel, Zamzam Attending Unavailable Windnagel, Zamzam Referring Unavailable Windnagel, Zamzam Attending Unavailable Windnagel, Zamzam Admitting Unavailable Shaikh Sánchez MD Unavailable [place] DEPUTY [place] COUNSEL, Zamzam C Unavailable Shaikh Sánchez MD Primary Care Provider Kirstin Carreon LPN Unavailable Unavailable Ian Soares MD Primary Care Provider Daniel Cardoso NP Unavailable [phone] Gustavo Romero LPN Unavailable Unavailable [place] DEPUTY [place] COUNSEL, Zamzam C Unavailable [phone] Arturo Chanel MA Unavailable Unavailable Walker [place]PUTY [place] COUNSEL-CDaniel Primary Care Provid er Ramos MD, Mohamad Admit Provider Kayla ANGULO, Daniel Attending Provider [phone] Sara ANGULO, Basekassandra Other Provider Hernandez ANGULO, Suzette Other Provider Ryan Arshad MD Other Provider Turjimenez HONEY EXTRACTOR, Ilana Other Provider Hubert Mcguire DO Other Provider Beni ANGULO, Dave Hidalgo Other Provider PROVIDER, UNKNOWN Attending Unavailable PROVIDER, UNKNOWN Admitting Unavailable Chalo ANGULO, Gianna Mir Primary Care Provider Unava ilable Liam [place]PUTY [place] COUNSEL, Zamzam C Unavailable [phone] Walker [place]PUT[place] COUNSEL, Daniel Unavailable Ramone [place] COUNSEL, [place] Unavailable Arturo Chanel MA Unavailable IAN SOARES Attending Unavailable AICHHOLZ, LA Attending Unavailable AICHHOLZ, LA Attending Unavailable AICHFARIBA, LA Attending Unavailable DANIEL CARDOSO Attending Unavailrocky e Daniel Cardoso Primary Care Unavaila ble Hernandez, Suzette Consulting Unavailable Ramos, Mohamad Admitting Unavailable Daniel Garza Attending Unavailable Jeancarlos, Ryan Consulting Unavailable Kelly, Ilana Consulting Unavailable Hubert Mcguire Jr Consulting Unavailabl e Dvae Bazan Consulting Unavaila ble Ruiz, Basem Consulting Unavailable Aichholz DEPUTY [place] COUNSEL-C, La J Primary Care Provider Ramone DEPUTY [place] COUNSEL-C, [place] J Attending Provider Gonzalo ANGULO, Parada Primary Care Provider Shaikh Sánchez MD Unavailable Liam GARZA, Zamzam C Unavailable Gonzalo ANGULO, Primary Care Provider [employer] CERTIFIED HAND THERAPIST, Funmilayo Unavailable Heather BAKERN, Ardana Unavailable Unavailable Lauri RUIZ, Kirstin Unavailable Prasanth ANGULO, Ian Primary Care Provider Walker [place]PUT[place] COUNSEL, Daniel Unavailable Darío MORALES, Arturo Unavailable Ramone [place] COUNSEL, [place] Unavailable Medications Current Medications MedicationDrug Class(es)DatesSig (Normalized)Sig (Original)Abrysvo 120 MCG/0.5ML reconstituted solution (8 sources)Start: 60-53-8307Oxjsnxr 120 MCG/0.5ML reconstituted solution 12/21/2024 Activeacetaminophen 500 mg oral capsule (4 sources)Start: 48-39-4982hhoh 1 capsule by mouth every six hours as needed albuterol 0.83 mg/ml inhalation solution (20 sources)beta2-Adrenergic AgonistStart: 07-22-2025 End: 43-39-0204uwwx 1 puff(s) by inhalation four times daily as needed for wheezingStart: 07-18-2025 End: 82-97-4302vaoo 2.5 mg by inhalation every six hoursAlbuterol Sulfate 2.5 mg /3 mL (0.083 %) solution for nebulization Discontinued 2.5 MG INHALATION Every 6 hours 1080 90 0 July 18, 2025 11:20am August 01, 2025 8:50pm Chronic obstructive pulmonary disease Chronic obstructive pulmonary disease, unspecified Start: 07-18-2025 End: 30-24-0784lcyi 1 puff(s) by inhalation every four hoursAlbuterol Sulfate 90 mcg/actuation HFA aerosol inhaler Discontinued 2 PUFF INHALATION Every 4 hours July 18, 2025 12:00am August 01, 2025 8:49pmStart: 02-12-2025 End: 27-89-3440sboycxnuq (2.5 MG/3ML) 0.083% nebulizer solution Indications: Chronic obstructive pulmonary disease, unspecified COPD type (HCC) Take 3 mL (2.5 mg) by nebulization every 6 (six) hours if needed for wheezing 75 mL 1 06/09/2025 ActiveStart: 12-10-2024 End: 48-55-3792Lnpbursxx Sulfate 90 mcg/actuation HFA aerosol inhaler Discontinued INHALATION December 10, 2024 1:00am July 22, 2025 7:14pm Start: 06-21-2024 End: 94-29-9635awzt 2 puff(s) by inhalation every four hours [...] oral tablet (11 sources)Penicillin-class AntibacterialStart: 01-23-2025 End: 02-14-4650zcyx 1 tablet by mouth in the morningamoxicillin-clavulanate (Augmentin) 875-125 MG tablet Indications: COPD exacerbation (CMS/HCC) Take1 tablet (875 mg) by mouth in the morning and 1 tablet (875 mg) before bedtime. Do all this for 10 days. Take with food. 20 tablet 01/23/2025 02/06/2025 Discontinued (Therapy completed)Start: 12-14-2024 End: 41-66-7106iskl 1 tablet by mouth twice dailyAmoxicillin-Pot Clavulanate (Augmentin) 500-125 mg tablet Discontinued 1 TAB PO Twice daily 6 3 0 December 14, 2024 1:00am January 04, 2025 10:14amStart: 09-20-2024 End: 32-10-7826uuba 1 tablet by mouth in the morningamoxicillin-clavulanate (Augmentin) 875-125 MG tablet Indications: Non-recurrent acute serous otitis media of left ear Take 1 tablet (875 mg) by mouth in the morning and 1 tablet (875 mg) before bedtime. Do all this for 10 days. 20 tablet 09/20/2024 09/30/2024 Activebumetanide 1 mg oral tablet (2 sources)Loop DiureticStart: 43-61-5846ekfm 1 tablet by mouth once daily busPIRone hydrochloride 7.5 mg oral tablet (10 sources)Start: 07-31-2025 End: 36-06-9109dyce 1 tablet by mouth twice dailyStart: 06-26-2025 End: 34-42-6149oham 1 tablet by mouth twice dailyBuspirone 5 [...] oral capsule (2 sources)Cephalosporin AntibacterialStart: 06-26-2025 End: 13-05-3690hsgf 1 capsule by mouth in the morningcephalexin (Keflex) 500 MG capsule Indications: Cellulitis of left lower extremity Take 1 capsule (500 mg) by mouth in the morning and 1 capsule (500 mg) before bedtime. Do all this for 7 days. 14 capsule 06/26/2025 07/03/2025 Activecholecalciferol 0.05 mg oral tablet (20 sources)Vitamin DStart: 06-21-2024 End: 18-47-8282enzb 1 tablet by mouth once dailycholecalciferol (Vitamin [...] mg oral tablet (1 source)Start: 04-30-2024 End: 19-20-8611vyle 1 tablet by mouth once dailyferrous gluconate (Fergon) 324 (38 Fe) MG tablet Indications: Iron deficiency TAKE 1 TABLET BY MOUTH DAILY 100 tablet 04/30/2024 07/07/2024 Discontinued (Therapy completed)ferrous sulfate 325 mg delayed release oral tablet (20 sources)Start: 07-07-2024 End: 32-27-0457hgcz 1 tablet by mouth in the morningferrous [...] Administer 1 spray into each nostril daily. MnfmcaAsacolrlhop-Dmxxiwlaw-Zflvzi (Trelegy Ellipta) 200-62.5-25 MCG/ACT aerosol powder (20 sources)Start: 05-06-2025 End: 62-07-3046Tybjwsldnrv-Umeclidin-Vilant (Trelegy Ellipta) 200-62.5-25 MCG/ACT aerosol powder Indications: Asthma with COPD (chronic obstructive pulmonary disease) ([facility]) Inhale 1 Inhalation Daily 3 each 1 05/06/2025 08/04/2025 ActiveStart: 02-25-2025 End: 59-36-1999Ovbrpxubiil-Umeclidin-Vilant (Trelegy Ellipta) 200-62.5-25 MCG/ACT aerosol powder Indications: Asthma with COPD (chronic obstructive pulmonary disease) ([facility]) Inhale 1 Inhalation Daily 3 each 1 02/25/2025 05/06/2025 Discontinued (Reorder)Start: 02-25-2025 End: 80-51-2639Jkdizdotraa-Umeclidin-Vilant (Trelegy Ellipta) 200-62.5-25 MCG/ACT aerosol powder Indications: Asthma with COPD (chronic obstructive pulmonary disease) ([facility]) Inhale 1 Inhalation Daily 3 each 1 02/25/2025 05/26/2025 ActiveStart: 08-27-2024 End: 36-82-9152Fhnldxazusy-Umeclidin-Vilant (Trelegy Ellipta) 200-62.5-25 MCG/ACT aerosol powder Indications: Asthma with COPD (chronic obstructive pulmonary disease) ([facility]) Inhale 1 Inhalation Daily 3 each 1 08/27/2024 02/25/2025 Discontinued (Reorder)Start: 67-24-0496Ayjwaatkryl-Umeclidin-Vilant (Trelegy Ellipta) 200-62.5-25 MCG/ACT aerosol powder Indications: Asthma with COPD (chronic obstructive pulmonary disease) ([facility]) Inhale 1 Inhalation Daily 3 each 1 08/27/2024 ActiveStart: 08-27-2024 End: 19-09-4050Qglqyonyxny-Umeclidin-Vilant (Trelegy Ellipta) 200-62.5-25 MCG/ACT aerosol powder Indications: Asthma with COPD (chronic obstructive pulmonary disease) ([facility]) Inhale 1 Inhalation Daily 3 each 1 08/27/2024 11/25/2024 ActiveStart: 06-11-2024 End: 77-35-1976Fxdlqfscptg-Umeclidin-Vilant (Trelegy Ellipta) 200-62.5-25 MCG/ACT aerosol powder Indications: Asthma with COPD (chronic obstructive pulmonary disease) ([facility]) Inhale 1 Inhalation Daily 3 each 1 06/11/2024 08/27/2024 Discontinued (Reorder)Start: 06-11-2024 End: 47-58-9635Czgwtghxfxj-Umeclidin-Vilant (Trelegy Ellipta) 200-62.5-25 MCG/ACT aerosol powder Indications: Asthma with COPD (chronic obstructive pulmonary disease) ([facility]) Inhale 1 Inhalation Daily 3 each 1 06/11/2024 09/09/2024 ZvxcipCriouhjubuv-Bsabrtnyg-Kmoyrmzj (12 sources)Start: 33-65-5069Uwrak: 07-74-0569Txivxbembzq-Umeclidin-Vilanter (Trelegy Ellipta) 200-62.5-25 mcg blister with device Active 1 INH INHALATION Daily 180 July 18, 2025 11:18am Complies with drug therapyStart: 01-04-2025 End: 70-72-5322Mxgraeywjhv-Umeclidin-Vilanter (Trelegy Ellipta) 200-62.5-25 mcg blister with device Discontinued INHALATION Twice daily January 04, 2025 10:12am July 18, 2025 11:20amStart: 01-04-2025 Moxeuycykly-Lhbmxlpud-Nwlaxsvu (Trelegy Ellipta) 200-62.5-25 mcg blister with device Active INHALATION Twice daily January 04, 2025 9:12amStart: 12-10-2024 End: 60-31-3062Luihwuvuwyj-Umeclidin-Vilanter (Trelegy Ellipta) 200-62.5-25 mcg blister with device Discontinued INHALATION December 10, 2024 1:00am January 04, 2025 10:14amStart: 12-10-2024 End: 91-16-7943Ffbwfaieode-Umeclidin-Vilanter (Trelegy Ellipta) 200-62.5-25 mcg blister with device Discontinued INHALATION December 10, 2024 12:00am January 04, 2025 9:14amStart: 98-88-8954Indmodomzrn-Umeclidin-Vilanter (Trelegy Ellipta) 200-62.5-25 mcg blister with device Active INHALATION December 10, 2024 12:00amhydroCHLOROthiazide 12.5 mg / losartan potassium 50 mg oral tablet (13 sources)Thiazide Diuretic, Angiotensin 2 Receptor BlockerStart: 01-26-2024 End: 57-64-6028keqw 1 tablet by mouth once dailylosartan-hydroCHLOROthiazide (Hyzaar) [...] tablet (20 sources)Nonsteroidal Anti-inflammatory DrugStart: 12-10-2024 End: 40-41-3610wjbh 1 tablet by mouth once dailyStart: 02-28-2019 End: 24-44-6091cvbw 1 tablet by mouth once dailymeloxicam (MOBIC) 7.5 mg tablet Take 7.5 mg by mouth daily. 5 02/28/2019 Activemultivitamin capsule (4 sources)take 1 capsule by mouth once dailymultivitamin capsule Take 1 capsule by mouth daily. Activeondansetron 4 mg oral tablet (4 sources)Serotonin-3 Receptor AntagonistStart: 91-77-2893okbc 1 tablet by mouth every six hours as neededPEG 3350 (Glycolax, Miralax) 4 gram packet (2 sources)PEG 3350 (Glycolax, Miralax) 4 gram packet 17 g in the morning. Activepolyethylene glycol 3350 16949 mg powder for oral solution (4 sources)Osmotic Laxativepolyethylene glycol (GLYCOLAX) 17 gram packet Take 17 g by mouth daily. Activesertraline 50 mg oral tablet (20 sources)Serotonin Reuptake InhibitorStart: 64-72-6853wadr 2 tablets by mouth once dailyStart: 06-26-2025 End: 09-54-9351wfki 1 tablet by mouth once dailysertraline (Zoloft) 100 MG tablet Indications: Depression, unspecified , Generalized anxiety disorder Take 1 tablet (100 mg) by mouth Daily 100 tablet 06/26/2025 10/04/2025 ActiveStart: 04-30-2024 End: 45-79-5402bwyu 1 tablet by mouth once dailySertraline 50 mg tablet Discontinued 50 MG PO Daily January 04, 2025 10:14am July 18, 2025 10:56amspironolactone 25 mg oral tablet (4 sources)Aldosterone Antagonisttake 1 tablet by mouth once dailyspironolactone (ALDACTONE) 25 mg tablet Take 1 tablet by mouth daily. Active Completed/Discontinued Medications MedicationDrug Class(es)DatesSig (Normalized)Sig (Original)atorvastatin 40 mg oral tablet (20 sources)HMG-CoA Reductase InhibitorStart: 01-09-2018 End: 57-57-1866Iyxqxrpyvcip 40 mg tablet Discontinued MG December 10, 2024 1:00am January 04, 2025 10:14amfurosemide 40 mg oral tablet (9 sources)Loop DiureticStart: 07-31-2025 End: 54-69-4149rpgp 1 tablet by mouth once dailyFurosemide 40 mg tablet Discontinued 40 MG PO Daily 30 July 31, 2025 12:00am August 22, 2025 9:44am Edema of both lower extremities Localized edemaStart: 06-26-2025 End: 69-22-2203ztvz 1 tablet by mouth once dailyFurosemide 20 mg tablet Discontinued 20 MG PO Daily July 18, 2025 12:00am July 31, 2025 11:35amLORazepam 0.5 mg oral tablet (20 sources)BenzodiazepineStart: 07-28-2025 End: 07-62-4918ycko 1 tablet by mouth once daily at bedtime as neededLorazepam (Ativan) 0.5 mg tablet Discontinued 0.5 MG PO Daily at bedtime as needed July 28, 2025 12:00am August 22, 2025 9:27amStart: 01-04-2025 End: 06-34-4782gjih 1 tablet by mouth three times daily as neededLorazepam 0.5 mg tablet Discontinued 0.5 MG PO Three times daily as needed January 04, 2025 1:00am July 28, 2025 8:43pm End: 69-70-0790qrkn 1 tablet by mouth every six hours as needed for anxiety LORazepam (Ativan) 0.5 MG tablet Take 0.5 mg by mouth every 6 (six) hours if needed for anxiety 02/06/2025 Discontinued (Therapy completed)losartan potassium 50 mg oral tablet (20 sources)Angiotensin 2 Receptor BlockerStart: 09-20-2024 End: 57-34-7668ytds 1 tablet by mouth once dailyLosartan 50 mg tablet Discontinued 50 MG PO Daily January 04, 2025 10:12am August 06, 2025 2 :00pmmetFORMIN hydrochloride 500 mg oral tablet (20 sources)BiguanideStart: 04-30-2024 End: 23-14-4701Djxdqxpbr 500 mg tablet Discontinued MG December 10, 2024 1:00am January 04, 2025 10:14amtake 1 tablet by mouth twice daily at mealtime metFORMIN (GLUCOPHAGE) 500 mg tablet Take 500 mg by mouth 2 (two) times a day with meals. Activeomeprazole 20 mg delayed release oral capsule (20 sources)Proton Pump InhibitorStart: 01-30-2024 End: 63-23-8249Pbmszuvmsx 20 mg capsule,delayed release(DR/EC) Discontinued MG December 10, 2024 1:00am January 04, 2025 10:14amoseltamivir 30 mg oral capsule (5 sources)Neuraminidase InhibitorStart: 12-14-2024 End: 58-73-9993ypwp 1 capsule by mouth twice dailyOseltamivir 30 mg Capsule Discontinued 30 MG PO Twice daily 4 2 0 December 14, 2024 1:00am January 04, 2025 10:14ampredniSONE 20 mg oral tablet (5 sources)Start: 12-14-2024 End: 16-97-1625htoq 2 tablets by mouth once dailyPrednisone 20 mg Tablet Discontinued 40 MG PO Daily 4 2 0 December 14, 2024 1:00am January 04, 2025 10:14amRsv Vac, Pref A And Pref B(Pf) (3 sources)Start: 07-18-2025 End: 56-47-1156Dhp Vac, Pref A And Pref B(Pf) (Abrysvo (Pf)) 120 mcg/0.5 mL recon soln Discontinued ML IM July 18, 2025 12:00am July 28, 2025 8:42pm Problems Active Problems Problem ClassificationProblemDateDocumented DateEpisodic/Chronic Administrative/social admission (8 sources)Other reduced mobility; Translations: [Impaired mobility and activities of daily living]Onset: 704447-93-7944OpasrzohUhhekzm disorders (20 sources)Anxiety; Translations: [Anxiety disorder, unspecified]Onset: 888529-15-2599EdrrfhwPnlatm; peripheral; and visceral artery aneurysms (4 sources)Aneurysm of other specified arteries; Translations: [ANEURYSM OTHER SPECIFIED ARTERIES]Onset: 75-41-0086JoomtcfCzgnfcbhab pneumonitis; food/vomitus (14 sources)Aspiration pneumonia; Translations: [Pneumonitis due to inhalation of food and vomit]Onset: 567126-46-5610RsqlxuvvNddvml (20 sources)Asthma-chronic obstructive pulmonary disease overlap syndrome; Translations: [Asthma with COPD (chronic obstructive pulmonary disease) ([facility])]Onset: 852242-86-3632QganqspZteobes obstructive pulmonary disease and bronchiectasis (20 sources)Chronic obstructive pulmonary disease, unspecified; Translations: [Acute exacerbation of chronic obstructive airways disease]Onset: 12-27-2018 08-24-2355JualgavLlibthhqas and other anemia (20 sources)Iron 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; Translations: [Iron deficiency anemia secondary to blood loss (chronic)]Onset: ChronicDeficiency and other anemia (1 source)Anemia, unspecified; Translations: [ANEMIA UNSPECIFIED]Onset: 03-53-8323EwkhevdoTmclcvai mellitus with complications (2 sources)Polyneuropathy due to type 2 diabetes mellitus; Translations: [Type 2 diabetes mellitus with diabetic polyneuropathy]55-26-9417BjkketzXudqswyd mellitus without complication (20 sources)Type 2 diabetes mellitus without complications; Translations: [Type 2 diabetes mellitus without complication]Onset: 45-09-8023TmnzcobGkpmdlsft of lipid metabolism (20 sources)Hyperlipidemia; Translations: [Other hyperlipidemia]Onset: 927136-26-9827GejcbuaMdqarkiqdw disorders (2 sources)Gastroesophageal reflux disease without esophagitis; Translations: [Gastro-esophageal reflux disease without esophagitis]08-06-4497YyisdinLcgoobmke hypertension (20 sources)Essential hypertension; Translations: [Essential (primary) hypertension]Onset: 604416-22-2294LwhfyxjTexf disorders (20 sources)Recurrent major depression in full remission; Translations: [Major depressive disorder, recurrent, in full remission]Onset: ChronicMood disorders (20 sources)Mood disorders; Translations: [Depression, unspecified]Onset: 824509-59-6762Qwknohgxwcg deficiencies (20 sources)Vitamin D deficiency; Translations: [Vitamin D deficiency, unspecified]Onset: 667401-55-6961AmooumnZklt wounds of extremities (4 sources)Open wound of lower limb; Translations: [Unspecified open wound, right lower leg, initial encounter]73-44-3602BvkarhxgOgqhfdwvvjeiqv (15 sources)Osteoarthritis; Translations: [Unspecified osteoarthritis, unspecified site]Onset: 097599-97-1701WgzgqteXdkvk and unspecified benign neoplasm (4 sources)Benign neoplasm of cranial nerves; Translations: [BENIGN NEOPLASM OF CRANIAL NERVES]Onset: 37-09-4605JfrhlxiGvbxt and unspecified benign neoplasm (20 sources)Acoustic neuroma of right vestibular nerve; Translations: [Benign neoplasm of cranial nerves]Onset: 110132-65-3641SqchaomZzqcl and unspecified benign neoplasm (2 sources)Benign neoplasm of cranial nerve; Translations: [Benign neoplasm of cranial nerves]20-09-2008WylslvvSnsfs and unspecified benign neoplasm (20 sources)Other benign neoplasm of skin of right ear and external auricular canal; Translations: [Benign neoplasm of ear and external auditory canal]Onset: 719745-90-0994BbbtzxizSixwv circulatory disease (5 sources)Low blood pressure; Translations: [Hypotension, unspecified] 26-18-4895VwjukyrvLbdqe connective tissue disease (20 sources)Recurrent falls ; Translations: [Repeated falls]Onset: 02-23-2024 27-17-3057GlegcyxrJigkr connective tissue disease (2 sources)Other bursitis of elbow, left elbow; Translations: [Other enthesopathy of elbow region]95-87-7640ZnpamkdiRuxem connective tissue disease (1 source)Bursitis of elbow; Translations: [Other bursitis of elbow, left elbow] 13-09-8895EkfdlxoyJczld ear and sense organ disorders (20 sources)Sensorineural hearing loss in right ear; Translations: [Unspecified sensorineural hearing loss]Onset: 467723-35-0048JfksbfaRjoaq gastrointestinal disorders (20 sources)Occult blood in stools; Translations: [Other fecal abnormalities] Onset: 525880-52-5083YbzjfyxfWuikl nervous system disorders (20 sources)Spinal cord disease; Translations: [Disease of spinal cord, unspecified]Onset: 509121-45-9037PptnxafVllbd nervous system disorders (20 sources)Disorder of nervous system; Translations: [Demyelinating disease of central nervous system, unspecified]Onset: 814461-86-6521ZpjvicwQuozy nervous system disorders (1 source)Ataxia, unspecified; Translations: [ATAXIA UNSPECIFIED]Onset: 14-88-4112DquqauskIecrg nervous system disorders (6 sources)Finding related to ability to move; Translations: [Other abnormalities of gait and mobility]Onset: 433560-37-0847QnnmfrzxVivyu nutritional; endocrine; and metabolic disorders (1 source)Abnormal weight loss; Translations: [ABNORMAL WEIGHT LOSS]Onset: 35-37-6747WhwolmhcUocep screening for suspected conditions (not mental disorders or infectious disease) (20 sources)Patient encounter status; Translations: [Encounter for screening mammogram for malignant neoplasm of breast]Onset: 937320-49-8569Zqbslrca Otitis media and related conditions (2 sources)Acute non-suppurative otitis media - serous; Translations: [Acute serous otitis media, left ear]04-57-9200ZpzcqfyuVblbdtjy codes; unclassified (5 sources)Tobacco user; Translations: [Tobacco use]55-80-6758WvdadxytJhvlpxgg codes; unclassified (7 sources)Bilateral lower leg edema; Translations: [Localized edema]Onset: 695548-76-8112ExwpmdqeMaytkkno codes; unclassified (9 sources)Bilateral lower limb edema; Translations: [Localized edema]07-18-2025 EpisodicRespiratory failure; insufficiency; arrest (adult) (20 sources)Acute respiratory failure; Translations: [Acute respiratory failure with hypoxia]Onset: 898584-96-5331TxftdqiyZelt and subcutaneous tissue infections (10 sources)Cellulitis of left lower limb; Translations: [Cellulitis of left lower limb]Onset: 377152-57-9195MouihvltUqapmpqcd-qwdxehy disorders (20 sources)Smoker; Translations: [Nicotine dependence, unspecified, uncomplicated]Onset: 11-21-2023 Resolved: 112621-87-4186VgtoosjMbruepy disorders (17 sources)Acquired hypothyroidism; Translations: [Hypothyroidism, unspecified] Onset: 118819-76-7933TgjlpalOxwstzzlqvyr (1 source)R60.0 - Localized edema,S81.801A - Unspecified open wound, right lower leg, initial encounter,S81.802A - Unspecified open wound, left lower leg, initial encounter Past or Other Problems Problem ClassificationProblemDateDocumented DateEpisodic/ChronicGastrointestinal hemorrhage (4 sources)Rectal hemorrhage; Translations: [Hemorrhage of anus and rectum] Onset: 711948-65-0173UmfrvaezNkkyktiuj (20 sources)Influenza due to Influenza A virus; Translations: [Influenza due to other identified influenza virus with other respiratory manifestations]Onset: 12-09-2024 Resolved: 426797-52-7045FavgelipCvijafajoax deficiencies (9 sources)Iron deficiency; Translations: [Iron deficiency]Onset: 06-13-2025 86-35-7177MbywpsxvTwev wounds of head; neck; and trunk (20 sources)Scalp laceration; Translations: [Laceration without foreign body of scalp, sequela]Onset: 428872-39-1408VtggelyxKmrgk and unspecified benign neoplasm (20 sources)Acoustic neuroma; Translations: [Benign neoplasm of cranial nerves] Onset: 01-26-2024 Resolved: 323268-18-8115OxwrvhjLhhgk circulatory disease (3 sources)Hypotension, unspecified; Translations: [Hypotension, unspecified] Onset: 183034-65-5484QbfwyelkPveshslz codes; unclassified (3 sources)Tobacco use; Translations: [Tobacco use disorder]Onset: 12-09-2024 62-28-8989NmnirgfwGkvuvgwo codes; unclassified (1 source)Other specified health status; Translations: [Other specified health status]Onset: 05-92-5405WykyzwhjJotzmyyvjlcd (4 sources)Onset: Results Test NameValueInterpretationReference RangeFacilityBasophils Auto (Bld) [#/Vol] Ordered By: La Pack on 56-06-5406Lfijawode (Bld) [#/Vol]0.1 10 3/uL0.0-0.1 [facility] HospitalBasophils/100 WBC Auto (Bld)Ordered By: La Pack on 15-60-6683Nsqebazkr/100 WBC (Bld)0.5 %0.2-2.0City HospitalEosinophils/100 WBC Auto (Bld)Ordered By: La Pack on 99-45-5798Kfpeikwneep/100 WBC (Bld)1.0 %0.9-7.0[facility] Erythrocyte distribution width Auto (RBC) [Ratio]Ordered By: La Pack on 98-92-2522Oviejikehvs distribution width (RBC) [Ratio]16.5 %High11.0-15.0 [facility] HospitalGlobulin Calc (S) [Mass/Vol]Ordered By: La Pack on 38-47-6130Glhsqwto (S) [Mass/Vol]4.3 g/dLCity HospitalGlomerular filtration rate (GFR) estimation in non- AmericanOrdered By: La Pack on 69-66-9253CUD/1.73 sq M.predicted among non-blacks MDRD (S/P/Bld) [Vol rate/Area]mL/min/{1.73_m2}>=60 mL/min/1.73m 2FAshtabula County Medical CenterHematocrit Auto (Bld) [Volume fraction]Ordered By: La Pack on 88-13-7278Poouhpbnng (Bld) [Volume fraction]31.3 %Low36.0-48.0City HospitalHemoglobin [Mass/volume] in BloodOrdered By: La Dalecarmenfariba on 50-86-3097Esfwjfqprd (Bld) [Mass/Vol]9.6 g/dLLow12.0-16.0City HospitalIron binding capacity [Mass/volume] in Serum or Plasma Ordered By: La Pack on 49-09-7898Eouz binding capacity [Mass/Vol]292.0 ug/dL250.0-450.0City HospitalIron saturation [Mass Fraction] in Serum or PlasmaOrdered By: Laevan Pack on 61-07-9040Pikj saturation [Mass fraction]13.7 %City HospitalLaboratory - Chemistry and Chemistry - challengeOrdered By: La Ramone on 55-38-7517Gaiftyu [Mass/Vol] 3.4 g/dL3.4-5.0City HospitalALP [Catalytic activity/Vol]119 U/KWivf89-930QeupuhpqzCity HospitalALT [Catalytic activity/Vol]33 U/L 14-59City HospitalAST [Catalytic activity/Vol]14 U/PIvk50-25 City HospitalBilirubin [Mass/Vol]0.3 mg/dL0.2-1.0City HospitalCalcium [Mass/Vol]9.3 mg/dL8.5-10.1FAshtabula County Medical CenterChloride [Moles/Vol]102 mmol/S53-062TptgpccijCity HospitalCO2 [Moles/Vol]38.6 mmol/LHigh21.0-32.0[facility] Creatinine [Mass/Vol]0.86 mg/dL0.55-1.02[facility] Ferritin [Mass/Vol]95.0 ng/mL8.0-252.0City HospitalGFR/1.73 sq M.predicted MDRD (S/P/Bld) [Vol rate/Area]mL/min/{1.73_m2}>=60 mL/min/1.73m 2 City HospitalGlucose [Mass/Vol]115 mg/nWGzwq54-917ZawpenqaaCity HospitalIron [Mass/Vol]40.0 ug/dLLow50.0-170.0City HospitalNatriuretic peptide B (Bld) [Mass/Vol]150.0 pg/mL<=900.0City HospitalPotassium [Moles/Vol]4.4 mmol/L3.5-5.1FAshtabula County Medical CenterPrealbumin [Mass/Vol]21.9 mg/dL20.9-45.5FAshtabula County Medical CenterProtein [Mass/Vol]7.7 g/dL6.4-8.2FWestern Reserve Hospitalodium [Moles/Vol]144 mmol/C306-040YqtqdtcziCity HospitalTransferrin [Mass/Vol]231 mg/vP256-901VuwmnfqncCity HospitalComment on above: Performed at: [facility] [place] [id number] Director: Ever Pink PhD, Phone: [phone] nitrogen [Mass/Vol]28.0 mg/dLHigh7.0-18.0City HospitalUrea nitrogen/Creatinine [Mass ratio]32.6 mg/mgCity HospitalLaboratory - Hematology and Cell countsOrdered By: La Pack on 33-47-9905Uschvgtg granulocytes/100 WBC (Bld)0.3 %0.0-0.5FAshtabula County Medical CenterLeukocytes [#/volume] corrected for nucleated erythrocytes in Blood by Automated counOrdered By: La Pack on 08-64-4587VEX corrected for nucl RBC Auto (Bld) [#/Vol]9.2 10 3/uL 4.0-11.0City HospitalLymphocytes Auto (Bld) [#/Vol]Ordered By: La Pack on 44-52-8369Bnkysmiaixj (Bld) [#/Vol]0.9 10 3/uLLow1.2-3.8 City HospitalLymphocytes/100 WBC Auto (Bld)Ordered By: La Pack on 05-05-5618Jnrbephkftp/100 WBC (Bld)9.6 %Low20.5-60.0[facility] Auto (RBC) [Entitic mass]Ordered By: La Pack on 42-83-9212KJY (RBC) [Entitic mass]27.8 pg26.7-34.0[facility] HospitalHC Auto (RBC) [Mass/Vol]Ordered By: La Pack on 10-96-3098HVBZ (RBC) [Mass/Vol]30.7 g/dL29.9-35.2FAshtabula County Medical CenterMCV Auto (RBC) [Entitic vol]Ordered By: La Pack on 43-47-5840DUB (RBC) [Entitic vol]90.7 fL81.0-99.0City HospitalMonocytes Auto (Bld) [#/Vol]Ordered By: La Pack on 03-24-2374Ftziqitpm (Bld) [#/Vol]1.0 10 3/uL High0.3-0.8City HospitalMonocytes/100 WBC Auto (Bld)Ordered By: La Pack on 88-28-6710Juvbuzjdr/100 WBC (Bld)10.3 %1.7-12.0City HospitalNeutrophils Auto (Bld) [#/Vol]Ordered By: La Pack on 69-41-8460Ebylrigayip (Bld) [#/Vol]7.2 10 3/uLHigh1.4-6.5FAshtabula County Medical CenterNeutrophils/100 WBC Auto (Bld)Ordered By: La Pack on 24-36-7550Czarhuzmucv/100 WBC (Bld)78.3 %High43.0-75.0City HospitalNo Panel InformationOrdered By: La Pack on 57-90-0850Fsotfkmztog # (Auto)0.1 10 3/uL0.0-0.7FAshtabula County Medical CenterImmature Granulocyte # (Auto)0.03 10 3/uL0.00-0.03City HospitalPlatelet mean volume Auto (Bld) [Entitic vol]Ordered By: La Pack on 30-73-3798Vvtngpnv mean volume (Bld) [Entitic vol]9.5 fL9.5-13.5FAshtabula County Medical Center Platelets Auto (Bld) [#/Vol]Ordered By: La Pack on 51-26-7052Zgshlmjvi (Bld) [#/Vol]301 10 3/dF559-585GmhrepnyeCity HospitalRBC Auto (Bld) [#/Vol]Ordered By: La Pack on 70-93-8869JLI (Bld) [#/Vol]3.45 10 6/uLLow 4.20-5.40Aultman Hospitalerum or plasma albumin/globulin mass ratioOrdered By: La Pack on 97-16-9993Tcblrsj/Globulin [Mass ratio]0.8 {ratio}Aultman Hospitalerum or plasma anion gap determination Ordered By: La Pack on 02-23-0605Fgbxp gap [Moles/Vol]7.8 mmol/LFAshtabula County Medical CenterGlobulin Calc (S) [Mass/Vol]Ordered By: La Pack on 17-38-9070Bmcasbeg (S) [Mass/Vol]3.9 g/dLCity Hospital Glomerular filtration rate (GFR) estimation in non- AmericanOrdered By: La Pack on 46-11-9061ROJ/1.73 sq M.predicted among non-blacks MDRD (S/P/Bld) [Vol rate/Area]mL/min/{1.73_m2}>=60 mL/min/1.73m 2FAshtabula County Medical CenterLaboratory - Chemistry and Chemistry - challengeOrdered By: La Pack on 42-42-4518Aaqjanc [Mass/Vol]3.6 g/dL3.4-5.0City HospitalALP [Catalytic activity/Vol]111 U/N58-180AszefxfuhCity HospitalALT [Catalytic activity/Vol]29 U/L11-78GwfpxucyyCity HospitalAST [Catalytic activity/Vol]15 U/L86-03EimybsxmaCity Hospital Bilirubin [Mass/Vol]0.3 mg/dL0.2-1.0City HospitalCalcium [Mass/Vol]9.1 mg/dL8.5-10.1FAshtabula County Medical CenterChloride [Moles/Vol] 102 mmol/X74-028IxiqiqrppCity HospitalCO2 [Moles/Vol]34.6 mmol/LHigh 21.0-32.0City HospitalCreatinine [Mass/Vol]0.73 mg/dL 0.55-1.02City HospitalFerritin [Mass/Vol]93.0 ng/mL8.0-252.0 City HospitalGFR/1.73 sq M.predicted MDRD (S/P/Bld) [Vol rate/Area]mL/min/{1.73_m2}>=60 mL/min/1.73m 2FAshtabula County Medical Center Glucose [Mass/Vol]107 mg/yPBxcw80-786FinbayvafCity HospitalPotassium [Moles/Vol]4.2 mmol/L3.5-5.1FAshtabula County Medical CenterProtein [Mass/Vol] 7.5 g/dL6.4-8.2FWestern Reserve Hospitalodium [Moles/Vol]144 mmol/L 136-145City HospitalUrea nitrogen [Mass/Vol]27.0 mg/dLHigh 7.0-18.0City HospitalUrea nitrogen/Creatinine [Mass ratio] 37.0 mg/mgAultman Hospitalerum or plasma albumin/globulin mass ratioOrdered By: La Pack on 40-37-7954Okondlz/Globulin [Mass ratio]0.9 {ratio}Aultman Hospitalerum or plasma anion gap determination Ordered By: La Pack on 52-05-3724Fqntc gap [Moles/Vol]11.6 mmol/LFAshtabula County Medical CenterALL CBC WITH AUTO DIFFon 35-26-8558JENDYPTGE ABSOLUTE AUTO0.1NOMS HealthcareBasophils/100 WBC (Bld)0.9 %0.2 - 2.0 %[facility] Eosinophils/100 WBC (Bld)1.3 %0.9 - 7.0 %[facility] CenterErythrocyte distribution width (RBC) [Ratio]15.4 %High11.0 - 15.0 %[facility] CenterHematocrit (Bld) [Volume fraction]39.8 %36.0 - 48.0 %[facility] CenterHemoglobin (Bld) [Mass/Vol]12 g/dL12.0 - 16.0 g/dLSt. Joseph Medical CenterIMMATURE GRANULOCYTES ABS AUTO0.02NOCox NorthImmature granulocytes/100 WBC (Bld)0.3 %0.0 - 0.5 %[facility] Interpretation and review of laboratory resultsAbnormalSt. [facility] LYMPHOCYTES ABSOLUTE AUTO0.8LowSt. Joseph Medical CenterLymphocytes/100 WBC (Bld)11.3 %Low 20.5 - 60.0 %[facility] HospitalH (RBC) [Entitic mass]27.1 pg26.7 - 34.0 pgEastern Missouri State HospitalHC (RBC) [Mass/Vol]30.2 g/dL29.9 - 35.2 g/dLEastern Missouri State HospitalV (RBC) [Entitic vol]89.8 fL81.0 - 99.0 fLSt. Joseph Medical CenterMONOCYTES ABSOLUTE AUTO0.5NOCox NorthMonocytes/100 WBC (Bld)7 %1.7 - 12.0 %[facility] CenterNEUTROPHILS ABSOLUTE AUTO5.5NOCox NorthNeutrophils/100 WBC (Bld)79.2 %High43.0 - 75.0 % [facility] Medical CenterPlatelet mean volume (Bld) [Entitic vol]8.9 fLLow9.5 - 13.5 fL [facility] EO #0.1NKindred Hospital BHI826EZOQAlvin J. Siteman Cancer Center RBC4.43 [facility] GJE0WBVZCox NorthCLINISYNCNChristian Hospital THYROID STIM HORMONEon 50-90-4686QHH Qn2.663 m[IU]/LNGeneral Leonard Wood Army Community HospitalALL THYROXINE (T4) FREEon 91-67-1712Xekh T4 [Mass/Vol]0.93 ng/dL0.76 - 1.46 ng/dLSt. Joseph Medical CenterNo Panel Informationon 81-22-3741XHBTAXOGYZFMZ HealthcareNM ORLY PERF SPECT REST STRon 19-92-4845MjcBandera, [place] [address] Nuclear Medicine Report Signed Patient: JULIAN MONTAÑO MR#: [id number] : 1955 Acct:[id number] Age/Sex: 69 / F ADM Date: 02/20/25 Loc: NM Attending Dr: Krissy Cortez M.D. Ordering Physician: Krissy Cortez M.D. Date of Service: 02/20/25 Procedure(s): NM orly perf SPECT rest str Accession Number(s): [id number] cc: La Pack DEPUTY COUNTY COUNSEL; Krissy Cortez M.D. Patient Name: JULIAN MONTAÑO MR#: [id number] : 1955 Exam Date: 02/20/2025 Ordering Doctor: [...] the study was pending per attending physician [facility]. For more details, please see [...] Signed By: 02/21/25 143 DD/ 30 TD/TT: Maintenance Mechanic Telephone:ABDOULadiologgeraldo, Radiologist, - 02/21/2025 [place] [address] Nuclear Medicine Report Signed Patient: JULIAN MONTAÑO MR#: [id number] : 1955 Acct:[id number] Age/Sex: 69 / F ADM Date: 02/20/25 Loc: NM Attending Dr: Krissy Cortez M.D. Ordering Physician: Krissy Cortez M.D. Date of Service: 02/20/25 Procedure(s): NM orly perf SPECT rest str Accession Number(s): [id number] cc: La Pack DEPUTY COUNTY COUNSEL; Krissy Cortez M.D. Patient Name: JULIAN MONTAÑO MR#: [id number] : 1955 Exam Date: 02/20/2025 Ordering Doctor: [...] the study was pending per attending physician [facility]. For more details, please see [...] Signed By: 02/21/25 143 DD/ 1431 TD/TT: Maintenance Mechanic Telephone: [facility] CenterRadiology Study observation (narrative)[facility] PERF SPECT REST STROrdered By: Radiologist Radiology on 16-22-8338EUMJSt. Joseph Medical Center Work Phone: aLL CBC WITH AUTO DIFFon 86-13-8307UNBUVATHB ABSOLUTE AUTO0.1NOMS [facility] CenterBasophils/100 WBC (Bld)0.6 %0.2 - 2.0 %[facility] Eosinophils/100 WBC (Bld)1.5 %0.9 - 7.0 %[facility] CenterErythrocyte distribution width (RBC) [Ratio]15.9 %High11.0 - 15.0 %[facility] CenterHematocrit (Bld) [Volume fraction]36.1 %36.0 - 48.0 %[facility] CenterHemoglobin (Bld) [Mass/Vol] 11.6 g/dLLow12.0 - 16.0 g/dLHCA Midwest DivisionMATURE GRANULOCYTES ABS AUTO0.04 HighChristian Hospitalmature granulocytes/100 WBC (Bld)0.4 %0.0 - 0.5 %[facility] CenterInterpretation and review of laboratory resultsAbnormalSt. [facility] LYMPHOCYTES ABSOLUTE AUTO1.6NOCox NorthLymphocytes/100 WBC (Bld)15.8 %Low 20.5 - 60.0 %[facility] HospitalH (RBC) [Entitic mass]28.7 pg26.7 - 34.0 pgEastern Missouri State HospitalHC (RBC) [Mass/Vol]32.1 g/dL29.9 - 35.2 g/dLNOMS HealthcareMCV (RBC) [Entitic vol]89.4 fL81.0 - 99.0 fLNOMS HealthcareMONOCYTES ABSOLUTE ZKIF7Xqwv NOMS HealthcareMonocytes/100 WBC (Bld)9.6 %1.7 - 12.0 %[facility] NEUTROPHILS ABSOLUTE AUTO7.4HighNOMS HealthcareNeutrophils/100 WBC (Bld)72.1 % 43.0 - 75.0 %NOMS HealthcarePlatelet mean volume (Bld) [Entitic vol]9.1 fLLow9.5 - 13.5 fLNOMS HealthcareTBH EO #0.2NOMS HealthcareTBH TAG808VOFY HealthcareTBH RBC4.04LowNOMS HealthcareTBH WBC10.2NOMS HealthcareCLINISYNCNOMS HealthcareMM TOMOSYNTHESIS SCREENING BIon 33-80-1692DjfBandera, [place] [address] Mammography Report Signed Patient: JULIAN MONTAÑO MR#: [id number] : 1955 Acct:[id number] Age/Sex: 69 / F ADM Date: 02/18/25 Loc: MAMMO Attending Dr: La Pack NP Ordering Physician: La Pack NP Results: Date of Service: 02/18/25 Follow Up: Procedure(s): MM tomosynthesis screening BI Accession Number(s): [id number] cc: La Pack NP Patient Name: JULIAN MONTAÑO MR#: [id number] : 1955 Exam Date: 02/18/2025 Ordering Doctor: [...] Signed By: 02/18/25 1554 DD/ 1553 TD/TT: Maintenance Mechanic Telephone:TBHRadiology, Radiologist, MD - 02/18/2025 [place] [address] Mammography Report Signed Patient: JULIAN MONTAÑO MR#: [id number] : 1955 Acct:[id number] Age/Sex: 69 / F ADM Date: 02/18/25 Loc: MAMMO Attending Dr: La Pack NP Ordering Physician: La Pack NP Results: Date of Service: 02/18/25 Follow Up: Procedure(s): MM tomosynthesis screening BI Accession Number(s): [id number] cc: La Pack NP Patient Name: JULIAN MONTAÑO MR#: [id number] : 1955 Exam Date: 02/18/2025 Ordering Doctor: [...] Signed By: 02/18/25 1554 DD/ 1553 TD/TT: Maintenance Mechanic Telephone: SONI HealthcareRadiology Study observation (narrative)[facility] TOMOSYNTHESIS SCREENING BIOrdered By: Radiologist Radiology on 76-18-4387TZSB kooldiner Work Phone: alanine aminotransferase [Enzymatic activity/volume] in Serum or PlasmaOrdered By: Daniel Garza on 67-11-5933ORM [Catalytic activity/Vol]Alanine aminotransferase [Enzymatic activity/volume] in Serum or PlasmaHigh7-52City HospitalAlbumin [Mass/volume] in Serum or Plasma by Bromocresol green (BCG) dye binding methoOrdered By: Daniel Garza on 30-68-1104Ykeargn BCG dye [Mass/Vol]Albumin [Mass/volume] in Serum or Plasma by Bromocresol green (BCG) dye binding metho3.5-5.7FAshtabula County Medical CenterAlkaline phosphatase [Enzymatic activity/volume] in Serum or PlasmaOrdered By: Daniel Garza on 70-32-2630NTB [Catalytic activity/Vol]Alkaline phosphatase [Enzymatic activity/volume] in Serum or Upicbe13-413GgharmqxyCity HospitalAspartate aminotransferase [Enzymatic activity/volume] in Serum or Plasma Ordered By: Daniel Garza on 29-36-9238W[place] [Catalytic activity/Vol]Aspartate aminotransferase [Enzymatic activity/volume] in Serum or Fpojat65-96KgnybtnsdCity HospitalBasophils Auto (Bld) [#/Vol]Ordered By: Daniel Garza on 12-87-2977Cctggujpv (Bld) [#/Vol]Automated basophil count0.0-0.2FAshtabula County Medical CenterBasophils/100 WBC Auto (Bld)Ordered By: Daniel Garza on 83-73-2386Zleaixjhu/100 WBC (Bld)Automated basophil %.City HospitalBilirubin.total [Mass/volume] in Serum or PlasmaOrdered By: Daniel Garza on 02-67-5305Uqmlycoqr [Mass/Vol]Bilirubin.total [Mass/volume] in Serum or Plasma0.3-1.0City HospitalCalcium [Mass/volume] in Serum or PlasmaOrdered By: Daniel Garza on 71-16-3716Yhumtuh [Mass/Vol]Calcium [Mass/volume] in Serum or Plasma8.6-10.3FAshtabula County Medical CenterCarbon dioxide, total [Moles/volume] in Serum or PlasmaOrdered By: Daniel Garza on 82-75-3955SY5 [Moles/Vol]Carbon dioxide, total [Moles/volume] in Serum or Plasma 21.0-31.0City HospitalChloride [Moles/volume] in Serum or PlasmaOrdered By: Daniel Garza on 76-52-9238Bwfxoenp [Moles/Vol]Chloride [Moles/volume] in Serum or NmclqpNrl02-301VvtwrfneeCity Hospital Complete Blood Count Auto Diffon 69-32-9888Vdzwjqugd (Bld) [#/Vol]0.0 10*3/uL Normal0.0-0.2The [facility] Physician GroupComment on above:Result Comment: PERFORMED BY: [facility] [address] [place] [address] PATHOLOGIST SENIOR DIGITAL DESIGNER MANDY ACUÑA M.D.Performed By: #### CMP, CBC ####[place] [address] [place] [address] USABasophils/100 WBC (Bld)0.2 % Normal.The [facility] Physician GroupComment on above:Performed By: #### CMP, CBC ####[address] [place] [address] [place] Eosinophils (Bld) [#/Vol]0.0 10*3/uLNormal0.0-0.45The [facility] Comment on above:Performed By: #### CMP, CBC ####[place] [address] USAEosinophils/100 WBC (Bld)0.0 %Normal. The [facility] Physician GroupComment on above:Performed By: #### CMP, CBC ####[address] Erythrocyte distribution width (RBC) [Ratio]15.3 %Cznvbp09.9-15.3The [facility] Physician GroupComment on above:Performed By: #### CMP, CBC ####[place] [address] USAHematocrit (Bld) [Volume fraction]40.4 %Gunlgl43.0-46.4The [facility] Physician GroupComment on above:Performed By: #### CMP, CBC ####[place] [address] USAHemoglobin (Bld) [Mass/Vol]13.4 g/vBChrepo03.8-15.4 The [facility] Physician GroupComment on above:Performed By: #### CMP, CBC ####[place] [address] [place] Lymphocytes (Bld) [#/Vol]0.6 10*3/uLLow1.00-4.8The [facility] Comment on above:Performed By: #### CMP, CBC ####[place] [address] USALymphocytes/100 WBC (Bld)7.0 %Normal. The [facility] Physician GroupComment on above:Performed By: #### CMP, CBC ####[place] [address] USAMCH (RBC) [Entitic mass]28.5 isWkduhz85.7-34.3The [facility] Physician GroupComment on above:Performed By: #### CMP, CBC ####[place] [address] USAMCV (RBC) [Entitic vol]85.6 tMPvmwkz97-827Hhi [facility] Physician GroupComment on above:Performed By: #### CMP, CBC ####[place] [address] USAMean Corpuscular HGB Conc33.3 g/uDLhsnhe69.0-35.0The [facility] Physician GroupComment on above:Performed By: #### CMP, CBC ####[place] [address] USAMonocytes (Bld) [#/Vol]0.7 10*3/uLNormal 0.0-0.8The [facility] Physician GroupComment on above:Performed By: #### CMP, CBC ####[place] [address] [place] Monocytes/100 WBC (Bld)8.2 %Normal.The [facility] Physician GroupComment on above:Performed By: #### CMP, CBC ####[place] [address] USANeutrophils (Bld) [#/Vol]7.2 10*3/uLNormal1.8-7.7The [facility] Physician GroupComment on above:Performed By: #### CMP, CBC ####[place] [address] [place] Neutrophils/100 WBC (Bld)84.6 %Normal.The [facility] Physician GroupComment on above:Performed By: #### CMP, CBC ####[place] [address] USANRBC%0.1 /100{WBC}Normal0-0.5The [facility] Physician GroupComment on above:Performed By: #### CMP, CBC ####[place] [address] USAPlatelet mean volume (Bld) [Entitic vol]7.4 fLNormal6.3-10.7The [facility] Physician GroupComment on above: Performed By: #### CMP, CBC ####[place] [address] USAPlatelets (Bld) [#/Vol]276 10*3/bNModeol865-263Ugw [facility] Physician GroupComment on above:Performed By: #### CMP, CBC ####[address] [address] USARBC (Bld) [#/Vol]4.72 10*6/uLNormal3.60-5.00The [facility] Physician GroupComment on above:Performed By: #### CMP, CBC ####[address] [address] USAWBC (Bld) [#/Vol]8.6 10*3/uLNormal3.8-11.6The [facility] Physician GroupComment on above:Performed By: #### CMP, CBC ####[address] [facility] Comprehensive Metabolic Panelon 04-48-9094Kfekokx [Mass/Vol]3.7 g/dLNormal 3.5-5.7The [facility] Physician GroupComment on above:Performed By: #### CMP, CBC ####[address] [address] Albumin/Globulin [Mass ratio]1.2 {ratio}NormalThe [facility] Physician [facility] Comment on above:Performed By: #### CMP, CBC ####[address] [address] USAALP [Catalytic activity/Vol]84 U/L Vjiiqs35-959Dsx [facility] Physician GroupComment on above:Performed By: #### CMP, CBC ####[address] [address] USAALT [Catalytic activity/Vol]55 U/LHigh7-52The [facility] Comment on above:Performed By: #### CMP, CBC ####[address] [address] USAAnion gap [Moles/Vol]12.7 mmol/LNormal 6.0-15.0The [facility] Physician GroupComment on above:Performed By: #### CMP, CBC ####[address] [address] USAAST [Catalytic activity/Vol]29 U/JVjmalo59-20Jaw [facility] Physician GroupComment on above:Performed By: #### CMP, CBC ####[address] [address] USABilirubin [Mass/Vol]0.6 mg/dLNormal0.3-1.0The [facility] Physician GroupComment on above:Performed By: #### CMP, CBC ####[address] [address] USACalcium [Mass/Vol]9.2 mg/dLNormal8.6-10.3The [facility] Physician GroupComment on above: Performed By: #### CMP, CBC ####[address] [address] USAChloride [Moles/Vol]93 mmol/BWar96-815Pjd [facility] Physician GroupComment on above:Performed By: #### CMP, CBC ####[address] [address] USACO2 [Moles/Vol]29.4 mmol/MUqgocu87.0-31.0The [facility] Physician GroupComment on above:Performed By: #### CMP, CBC ####[address] [address] USACreatinine [Mass/Vol]0.81 mg/dLNormal0.60-1.20The [facility] Physician GroupComment on above:Performed By: #### CMP, CBC ####[address] [address] USACreatinine Clr Calc Ukslovyq24.51 NormalThe [facility] Physician GroupComment on above:Result Comment: PERFORMED BY: [facility] [address] [address] PATHOLOGIST SENIOR DIGITAL DESIGNER MANDY ACUÑA M.D.Performed By: #### CMP, CBC ####[address] [address] USAGFR/1.73 sq M.predicted MDRD (S/P/Bld) [Vol rate/Area]mL/min/{1.73_m2}NormalThe [facility] Comment on above:Performed By: #### CMP, CBC ####[place] [address] USAGlobulin (S) [Mass/Vol]3.2 g/dLNormal The [facility] Physician GroupComment on above:Performed By: #### CMP, CBC ####[place] [address] USAGlucose [Mass/Vol]145 mg/yHWkqr54-431Qqo [facility] Physician GroupComment on above: Result Comment: Random Glucose Reference Range is dependent on time and content of last meal. Glucose of more than 200 mg/dL in a nonstressed, ambulatory subject supports the diagnosis of Diabetes Mellitus. ADA recommended reference rangePerformed By: #### CMP, CBC ####[place] [address] USAPotassium [Moles/Vol] 4.1 mmol/LNormal3.5-5.1The [facility] Physician GroupComment on above:Performed By: #### CMP, CBC ####[place] [address] USAProtein [Mass/Vol]6.9 g/dLNormal6.4-8.9The [facility] Comment on above:Performed By: #### CMP, CBC ####[place] [address] USASodium [Moles/Vol]131 mmol/ZBzm000-913 The [facility] Physician GroupComment on above:Performed By: #### CMP, CBC ####[place] [address] USAUrea nitrogen [Mass/Vol]24 mg/dLNormal7-25The [facility] Physician GroupComment on above:Performed By: #### CMP, CBC ####[place] [address] USACreatinine [Mass/volume] in Serum or PlasmaOrdered By: Daniel Garza on 35-70-1290Hhmiyxfeah [Mass/Vol]Creatinine [Mass/volume] in Serum or Plasma0.60-1.20City HospitalEosinophils Auto (Bld) [#/Vol]Ordered By: Daniel Garza on 73-35-8412Tthgsubxejo (Bld) [#/Vol]Automated eosinophil count0.0-0.45City HospitalEosinophils/100 WBC Auto (Bld)Ordered By: Daniel Garza on 43-47-6964Eptkuyucryo/100 WBC (Bld) Automated eosinophil %.City HospitalErythrocyte distribution width Auto (RBC) [Ratio]Ordered By: Daniel Garza on 26-37-1241Tclncdvidki distribution width (RBC) [Ratio]Erythrocyte distribution width [Ratio] by Automated count11.9-15.3FAshtabula County Medical CenterGlobulin Calc (S) [Mass/Vol]Ordered By: Daniel Garza on 07-88-1649Ugibmyty (S) [Mass/Vol]Serum globulin measurement by calculation (mass/volume)City HospitalGlucose Glucometer (BldC) [Mass/Vol]Ordered By: Daniel Garza on 12-14-2024 Glucose [Mass/Vol]Capillary blood glucose measurement by glucometer (mass/volume)City HospitalComment on above:Random Glucose Reference Range is dependent on time and content of last meal. Glucose of more than 200 mg/dL in a nonstressed, ambulatory subject supports the diagnosis of Diabetes Mellitus.Glucose Poct Glucometerson 93-60-7371Nifmkur [Mass/Vol]236 mg/dLNoFormerly [facility], 1928[facility]1983 Physician GroupComment on above:Result Comment: Random Glucose Reference Range is dependent on time and content of last meal. Glucose of more than 200 mg/dL in a nonstressed, ambulatory subject supports the diagnosis of Diabetes Mellitus. PERFORMED BY: [place] [address] [address] PATHOLOGIST SENIOR DIGITAL DESIGNER MANDY ACUÑA M.D.Performed By: #### ABG #### Point of Care testing ,Glucose [Mass/Vol]154 mg/dLNoFormerly [facility], 1928[facility]1983 Physician GroupComment on above: Result Comment: Random Glucose Reference Range is dependent on time and content of last meal. Glucose of more than 200 mg/dL in a nonstressed, ambulatory subject supports the diagnosis of Diabetes Mellitus. PERFORMED BY: [facility] [address] [place] [address] PATHOLOGIST SENIOR DIGITAL DESIGNER MANDY ACUÑA M.D.Performed By: #### GLULS #### Point of Care testing ,Glucose [Mass/Vol]105 mg/dLCleveland Clinic Indian River Hospital Physician GroupComment on above: Result Comment: Random Glucose Reference Range is dependent on time and content of last meal. Glucose of more than 200 mg/dL in a nonstressed, ambulatory subject supports the diagnosis of Diabetes Mellitus. PERFORMED BY: [facility] [address] [place] [address] PATHOLOGIST SENIOR DIGITAL DESIGNER MANDY ACUÑA M.D.Performed By: #### ABG #### Point of Care testing ,Glucose [Mass/volume] in Serum or PlasmaOrdered By: Daniel Garza on 12-14-2024 Glucose [Mass/Vol]Glucose [Mass/volume] in Serum or [id number] HospitalComment on above:ADA recommended reference rangeRandom Glucose Reference Range is dependent on time and content of last meal. Glucose of more than 200 mg/dL in a nonstressed, ambulatory subject supports the diagnosisof Diabetes Mellitus.Hematocrit Auto (Bld) [Volume fraction]Ordered By: Daniel Garza on [id number] (Bld) [Volume fraction]Hematocrit [Volume Fraction] of Blood by Automated count34.0-46.4FAshtabula County [facility] Center Hemoglobin [Mass/volume] in BloodOrdered By: Daniel Garza on [id number] (Bld) [Mass/Vol]Hemoglobin [Mass/volume] in Blood11.8-15.4FAshtabula County Medical CenterLeukocytes [#/volume] corrected for nucleated erythrocytes in Blood by Automated counOrdered By: Daniel Garza on 94-03-1009IAT corrected for nucl RBC Auto (Bld) [#/Vol]Leukocytes [#/volume] corrected for nucleated erythrocytes in Blood by Automated coun3.8-11.6FAshtabula County Medical Center Lymphocytes Auto (Bld) [#/Vol]Ordered By: Daniel Garza on 12-21-7878Favhhzwnwcq (Bld) [#/Vol]Lymphocytes [#/volume] in Blood by Automated countLow1.00-4.8 City HospitalLymphocytes/100 WBC Auto (Bld)Ordered By: Daniel Garza on 70-72-1728Zlyjtldbapp/100 WBC (Bld)Lymphocytes/100 leukocytes in Blood by Automated count.City HospitalMCH Auto (RBC) [Entitic mass]Ordered By: Daniel Garza on 03-53-4152UXT (RBC) [Entitic mass]MCH [Entitic mass] by Automated count24.7-34.3FAshtabula County Medical CenterMCHC Auto (RBC) [Mass/Vol]Ordered By: Daniel Garza on 18-40-5433VGCY (RBC) [Mass/Vol]MCHC [Mass/volume] by Automated count32.0-35.0City HospitalMCV Auto (RBC) [Entitic vol]Ordered By: Daniel Garza on 79-93-6825CMW (RBC) [Entitic vol]MCV [Entitic volume] by Automated ajbtg40-035ArquxypjxCity HospitalMonocytes Auto (Bld) [#/Vol]Ordered By: Daniel Garza on 67-77-2994Mhbixzttk (Bld) [#/Vol]Automated blood monocyte count0.0-0.8City HospitalMonocytes/100 WBC Auto (Bld)Ordered By: Daniel Garza on 12-14-2024 Monocytes/100 WBC (Bld)Automated monocyte %.[facility] Neutrophils Auto (Bld) [#/Vol]Ordered By: Daniel Garza on 31-84-9186Txqcshsgjvj (Bld) [#/Vol]Neutrophils [#/volume] in Blood by Automated count1.8-7.7FAshtabula County Medical CenterNeutrophils/100 WBC Auto (Bld)Ordered By: Daniel Garza on 03-22-4594Vkqwyknyhqt/100 WBC (Bld)Automated neutrophil %.City HospitalNo Panel InformationOrdered By: Daniel Garza on 72-78-3546Qiactzcxc GFR (CKD-EPI)> 60.0 mL/MinCity HospitalPharmacy Creatinine Clearance (Chem66.51City HospitalNucleated erythrocytes [Presence] in Blood by Automated countOrdered By: Daniel Garza on 12-14-2024 Nucleated RBC Auto Ql (Bld)Nucleated erythrocytes [Presence] in Blood by Automated count0-0.5FAshtabula County Medical CenterPlatelet mean volume Auto (Bld) [Entitic vol]Ordered By: Daniel Garza on 30-28-7150Cloxkuxi mean volume (Bld) [Entitic vol]Platelet mean volume [Entitic volume] in Blood by Automated count6.3-10.7FAshtabula County Medical CenterPlatelets Auto (Bld) [#/Vol] Ordered By: Daniel Garza on 13-08-9201Kixdddxrg (Bld) [#/Vol]Platelets [#/volume] in Blood by Automated yqggc375-119SptbyhkroCity HospitalPotassium [Moles/volume] in Serum or PlasmaOrdered By: Daniel Garza on 53-34-8482Tmzkfmvjb [Moles/Vol]Potassium [Moles/volume] in Serum or Plasma3.5-5.1FAshtabula County Medical CenterProtein [Mass/volume] in Serum or PlasmaOrdered By: Daniel Garza on 46-44-1293Qeqfpqj [Mass/Vol]Protein [Mass/volume] in Serum or Plasma6.4-8.9 City HospitalRBC Auto (Bld) [#/Vol]Ordered By: Daniel Garza on 65-31-6808WIL (Bld) [#/Vol]Erythrocytes [#/volume] in Blood by Automated count3.60-5.00[facility]ultman Hospitalerum or plasma albumin/globulin mass ratioOrdered By: Daniel Garza on 20-28-4905Zbmyvwl/Globulin [Mass ratio] Serum or plasma albumin/globulin mass ratioCity Hospital Serum or plasma anion gap determinationOrdered By: Daniel Garza on 12-14-2024 Anion gap [Moles/Vol]Serum or plasma anion gap determination6.0-15.0[facility] CenterSodium [Moles/volume] in Serum or PlasmaOrdered By: Daniel Garza on 28-36-7715Udpkfp [Moles/Vol]Sodium [Moles/volume] in Serum or Plasma Iem087-424LtovdjczmCity HospitalUrea nitrogen [Mass/volume] in Serum or PlasmaOrdered By: Daniel Garza on 59-49-3628Ikry nitrogen [Mass/Vol]Urea nitrogen [Mass/volume] in Serum or Plasma7-25[facility] WBC Auto (Bld) [#/Vol]Ordered By: Daniel Garza on 33-12-1462CCQ (Bld) [#/Vol] Leukocytes [#/volume] in Blood by Automated count3.8-11.6FAshtabula County Medical CenterComplete Blood Count Auto Diffon 33-59-5590Ovkqedffx (Bld) [#/Vol] 0.0 10*3/uLNormal0.0-0.2The [facility] Physician GroupComment on above:Result Comment: PERFORMED BY: [facility] [address] [place] [address] PATHOLOGIST SENIOR DIGITAL DESIGNER MANDY ACUÑA M.D.Performed By: #### CBC, CMP ####[place] [address] USABasophils/100 WBC (Bld)0.1 % Normal.The [facility] Physician GroupComment on above:Performed By: #### CBC, CMP ####[place] [address] [place] Eosinophils (Bld) [#/Vol]0.0 10*3/uLNormal0.0-0.45The [facility] Comment on above:Performed By: #### CBC, CMP ####[place] [address] USAEosinophils/100 WBC (Bld)0.0 %Normal. The [facility] Physician GroupComment on above:Performed By: #### CBC, CMP ####[address] Erythrocyte distribution width (RBC) [Ratio]15.4 %High11.9-15.3The [facility] Physician GroupComment on above:Performed By: #### CBC, CMP ####[place] [address] USAHematocrit (Bld) [Volume fraction]40.5 %Xcjnaj58.0-46.4The [facility] Physician GroupComment on above:Performed By: #### CBC, CMP ####[place] [address] USAHemoglobin (Bld) [Mass/Vol]13.4 g/nNUbgpoa48.8-15.4 The [facility] Physician GroupComment on above:Performed By: #### CBC, CMP ####[place] [address] [place] Lymphocytes (Bld) [#/Vol]0.7 10*3/uLLow1.00-4.8The [facility] Comment on above:Performed By: #### CBC, CMP ####[place] [address] USALymphocytes/100 WBC (Bld)6.4 %Normal. The [facility] Physician GroupComment on above:Performed By: #### CBC, CMP ####[place] [address] USAMCH (RBC) [Entitic mass]28.5 afZvtnuu04.7-34.3The [facility] Physician GroupComment on above:Performed By: #### CBC, CMP ####[place] [address] USAMCV (RBC) [Entitic vol]86.4 sZUzbctp18-173Cqe [facility] Physician GroupComment on above:Performed By: #### CBC, CMP ####[place] [address] USAMean Corpuscular HGB Conc33.0 g/mZSjruip19.0-35.0The [facility] Physician GroupComment on above:Performed By: #### CBC, CMP ####[place] [address] USAMonocytes (Bld) [#/Vol]0.7 10*3/uLNormal 0.0-0.8The [facility] Physician GroupComment on above:Performed By: #### CBC, CMP ####[place] [address] [place] Monocytes/100 WBC (Bld)6.5 %Normal.The [facility] Physician GroupComment on above:Performed By: #### CBC, CMP ####[place] [address] USANeutrophils (Bld) [#/Vol]9.3 10*3/uLHigh1.8-7.7The [facility] Physician GroupComment on above:Performed By: #### CBC, CMP ####[place] [address] [place] Neutrophils/100 WBC (Bld)87.0 %Normal.The [facility] Physician GroupComment on above:Performed By: #### CBC, CMP ####[place] [address] USANRBC%0.1 /100{WBC}Normal0-0.5The [facility] Physician GroupComment on above:Performed By: #### CBC, CMP ####[place] [address] USAPlatelet mean volume (Bld) [Entitic vol]7.3 fLNormal6.3-10.7The [facility] Physician GroupComment on above: Performed By: #### CBC, CMP ####[place] [address] USAPlatelets (Bld) [#/Vol]302 10*3/qOBexhub373-336Vra [facility] Physician GroupComment on above:Performed By: #### CBC, CMP ####[place] [address] USARBC (Bld) [#/Vol]4.68 10*6/uLNormal3.60-5.00The [facility] Physician GroupComment on above:Performed By: #### CBC, CMP ####[address] [address] USAWBC (Bld) [#/Vol]10.6 10*3/uLNormal3.8-11.6The [facility] Physician GroupComment on above:Performed By: #### CBC, CMP ####[address] [facility] Comprehensive Metabolic Panelon 10-72-3238Eoseidi [Mass/Vol]3.8 g/dLNormal 3.5-5.7The [facility] Physician GroupComment on above:Performed By: #### CBC, CMP ####[address] [facility] Albumin/Globulin [Mass ratio]1.2 {ratio}NormalThe [facility] Physician [facility] Comment on above:Performed By: #### CBC, CMP ####[address] [address] USAALP [Catalytic activity/Vol]84 U/L Jxxxqc68-664Zfc [facility] Physician GroupComment on above:Performed By: #### CBC, CMP ####[address] [address] USAALT [Catalytic activity/Vol]65 U/LHigh7-52The [facility] Physician [facility] Comment on above:Performed By: #### CBC, CMP ####[address] [address] USAAnion gap [Moles/Vol]14.3 mmol/LNormal 6.0-15.0The [facility] Physician GroupComment on above:Performed By: #### CBC, CMP ####[address] [address] USAAST [Catalytic activity/Vol]38 U/RAbydgt86-36Odx [facility] Physician GroupComment on above:Performed By: #### CBC, CMP ####[address] [address] USABilirubin [Mass/Vol]0.5 mg/dLNormal0.3-1.0The [facility] Physician GroupComment on above:Performed By: #### CBC, CMP ####[address] [address] USACalcium [Mass/Vol]8.9 mg/dLNormal8.6-10.3The [facility] Physician GroupComment on above: Performed By: #### CBC, CMP ####[address] [address] USAChloride [Moles/Vol]95 mmol/QKpi63-516Ize [facility] Physician GroupComment on above:Performed By: #### CBC, CMP ####[address] [address] USACO2 [Moles/Vol]30.8 mmol/UEpmvqw96.0-31.0The [facility] Physician GroupComment on above:Performed By: #### CBC, CMP ####[address] [address] USACreatinine [Mass/Vol]0.99 mg/dLNormal0.60-1.20The [facility] Physician GroupComment on above:Performed By: #### CBC, CMP ####[place] [address] USACreatinine Clr Calc Pqypdhgl69.42 NormalThe [facility] Physician GroupComment on above:Result Comment: PERFORMED BY: [address] [place] [address] PATHOLOGIST SENIOR DIGITAL DESIGNER MANDY ACUÑA M.D.Performed By: #### CBC, CMP ####[place] [address] USAGFR/1.73 sq M.predicted MDRD (S/P/Bld) [Vol rate/Area]mL/min/{1.73_m2}NormalThe [facility] Comment on above:Performed By: #### CBC, CMP ####[address] [address] USAGlobulin (S) [Mass/Vol]3.1 g/dLNormal The [facility] Physician GroupComment on above:Performed By: #### CBC, CMP ####[place] [id number] USAGlucose [Mass/Vol]97 mg/bAFaytzj64-241Qsm [facility] Physician GroupComment on above: Result Comment: Random Glucose Reference Range is dependent on time and content of last meal. Glucose of more than 200 mg/dL in a nonstressed, ambulatory subject supports the diagnosis of Diabetes Mellitus. ADA recommended reference rangePerformed By: #### CBC, CMP ####[place] [id number] USAPotassium [Moles/Vol] 4.1 mmol/LNormal3.5-5.1The [facility] Physician [facility] HospitalComment on above:Performed By: #### CBC, CMP ####[place] [address] USAProtein [Mass/Vol]6.9 g/dLNormal6.4-8.9The [facility] Physician [facility] Comment on above:Performed By: #### CBC, CMP ####[place] [address] USASodium [Moles/Vol]136 mmol/LNormal 136-145The [facility] Physician [facility] HospitalComment on above:Performed By: #### CBC, CMP ####[place] [address] USAUrea nitrogen [Mass/Vol]22 mg/dLNormal7-25The [facility]ician [facility] HospitalComment on above:Performed By: #### CBC, CMP ####[place] [address] USAGlucose Poct Glucometerson 48-83-6742Genwwcs3Ivg5: Cleaned MeterNoFormerly [facility], [facility] Physician [facility] HospitalComment on above:Result Comment: PERFORMED BY: [place] [id number] PATHOLOGIST SENIOR DIGITAL DESIGNER MANDY ACUÑA M.D.Performed By: #### GLULS ####Point of Care testing, Glucose [Mass/Vol]277 mg/dLNoFormerly [facility], [facility] Physician [facility] HospitalComment on above: Result Comment: Random Glucose Reference Range is dependent on time and content of last meal. Glucose of more than 200 mg/dL in a nonstressed, ambulatory subject supports the diagnosis of Diabetes Mellitus.Performed By: #### GLULS ####Point of Care testing,Glucose [Mass/Vol]141 mg/dLNoFormerly [facility] Physician GroupComment on above:Result Comment: Random Glucose Reference Range is dependent on time and content of last meal. Glucose of more than 200 mg/dL in a nonstressed, ambulatory subject supports the diagnosis of Diabetes Mellitus. PERFORMED BY: [place] [id number] PATHOLOGIST SENIOR DIGITAL DESIGNER MANDY ACUÑA M.D.Performed By: #### GLULS ####Point of Care testing, Glucose [Mass/Vol]150 mg/dLCleveland Clinic Indian River Hospital Physician GroupComment on above: Result Comment: Random Glucose Reference Range is dependent on time and content of last meal. Glucose of more than 200 mg/dL in a nonstressed, ambulatory subject supports the diagnosis of Diabetes Mellitus. PERFORMED BY: [facility] [address] [facility] [place] [address] PATHOLOGIST SENIOR DIGITAL DESIGNER MANDY ACUÑA M.D.Performed By: #### GLULS #### Point of Care testing ,Glucose [Mass/Vol]117 mg/dLNoFormerly [facility] Physician GroupComment on above: Result Comment: Random Glucose Reference Range is dependent on time and content of last meal. Glucose of more than 200 mg/dL in a nonstressed, ambulatory subject supports the diagnosis of Diabetes Mellitus. PERFORMED BY: [facility] [address] [facility] [place] [address] PATHOLOGIST SENIOR DIGITAL DESIGNER MANDY ACUÑA M.D.Performed By: #### GLULS ####Point of Care testing,No Panel InformationOrdered By: Daniel Garza on 22-58-9250Kkhyqsr Glucose Comment Glu2: cleaned [facility] CenterComplete Blood Count Auto Diffon 27-79-5554Degybcavc (Bld) [#/Vol]0.0 10*3/uLNormal0.0-0.2The [facility] Physician GroupComment on above:Result Comment: PERFORMED BY: [facility] [address] [place] [address] PATHOLOGIST SENIOR DIGITAL DESIGNER MANDY ACUÑA M.D.Performed By: #### ABG #### Point of Care testing ,Basophils/100 WBC (Bld)0.0 %Normal.The [facility] Physician GroupComment on above:Performed By: #### ABG #### Point of Care testing ,Eosinophils (Bld) [#/Vol]0.0 10*3/uLNormal0.0-0.45The [facility] Comment on above:Performed By: #### ABG #### Point of Care testing ,Eosinophils/100 WBC (Bld)0.0 %Normal.The [facility] Physician GroupComment on above:Performed By: #### ABG #### Point of Care testing ,Erythrocyte distribution width (RBC) [Ratio]15.8 %High11.9-15.3The [facility] Physician GroupComment on above:Performed By: #### ABG #### Point of Care testing ,Hematocrit (Bld) [Volume fraction]34.5 %Dphfui88.0-46.4The [facility] Physician GroupComment on above:Performed By: #### ABG #### Point of Care testing ,Hemoglobin (Bld) [Mass/Vol]11.3 g/dLLow11.8-15.4The [facility] Physician [facility] Comment on above:Performed By: #### ABG #### Point of Care testing ,Lymphocytes (Bld) [#/Vol]0.3 10*3/uLLow1.00-4.8The [facility] Comment on above:Performed By: #### ABG #### Point of Care testing ,Lymphocytes/100 WBC (Bld)2.2 %Normal.The [facility] Physician GroupComment on above:Performed By: #### ABG #### Point of Care testing ,MCH (RBC) [Entitic mass]28.0 nwAwglws24.7-34.3The [facility] Comment on above:Performed By: #### ABG #### Point of Care testing ,MCV (RBC) [Entitic vol]85.4 fGAmjhta26-577Yil [facility] Physician GroupComment on above:Performed By: #### ABG #### Point of Care testing ,Mean Corpuscular HGB Conc32.8 g/pQMztzsx97.0-35.0The [facility] Physician [facility] Comment on above:Performed By: #### ABG #### Point of Care testing ,Monocytes (Bld) [#/Vol]0.6 10*3/uLNormal0.0-0.8The [facility] Comment on above:Performed By: #### ABG #### Point of Care testing ,Monocytes/100 WBC (Bld)4.8 %Normal.The [facility] Physician GroupComment on above:Performed By: #### ABG #### Point of Care testing ,Neutrophils (Bld) [#/Vol]10.8 10*3/uLHigh1.8-7.7The [facility] Physician [facility] Comment on above:Performed By: #### ABG #### Point of Care testing ,Neutrophils/100 WBC (Bld)93.0 %Normal.The [facility] Physician GroupComment on above:Performed By: #### ABG #### Point of Care testing ,NRBC%0.0 /100{WBC}Normal0-0.5The [facility] Physician GroupComment on above: Performed By: #### ABG #### Point of Care testing ,Platelet mean volume (Bld) [Entitic vol]7.4 fLNormal6.3-10.7The [facility] Physician GroupComment on above:Performed By: #### ABG #### Point of Care testing ,Platelets (Bld) [#/Vol]282 10*3/rMQzlkor108-479Spo [facility] Physician [facility] Comment on above:Performed By: #### ABG #### Point of Care testing ,RBC (Bld) [#/Vol]4.04 10*6/uLNormal3.60-5.00The [facility] Physician [facility] Comment on above:Performed By: #### ABG #### Point of Care testing ,WBC (Bld) [#/Vol]11.6 10*3/uLNormal3.8-11.6The [facility] Physician GroupComment on above:Performed By: #### ABG #### Point of Care testing ,Comprehensive Metabolic Panelon 02-48-2328Kwjtesv [Mass/Vol]3.6 g/dLNormal 3.5-5.7The [facility] Physician GroupComment on above:Performed By: #### PHOS, CMP ####[place] [address] [facility] Albumin/Globulin [Mass ratio]1.3 {ratio}NormalThe [facility] Physician [facility] Comment on above:Performed By: #### PHOBarbara, CMP ####[address] [address] USAALP [Catalytic activity/Vol]72 U/L Pasnsf27-310Jdx [facility] Physician [facility] HospitalComment on above:Performed By: #### PHOBarbara, CMP ####[address] [address] USAALT [Catalytic activity/Vol]67 U/LHigh7-52The [facility] Physician [facility] Comment on above:Performed By: #### PHOBarbara, CMP ####[address] [address] USAAnion gap [Moles/Vol]12.5 mmol/LNormal 6.0-15.0The [facility] Physician GroupComment on above:Performed By: #### PHOS, CMP ####[address] [address] USAAST [Catalytic activity/Vol]41 U/FFjjp95-29Zlw [facility] Physician [facility] HospitalComment on above:Performed By: #### PHOS, CMP ####[address] [address] USABilirubin [Mass/Vol]0.4 mg/dLNormal0.3-1.0The [facility] Physician GroupComment on above:Performed By: #### PHOS, CMP ####[address] [address] USACalcium [Mass/Vol]8.3 mg/dLLow8.6-10.3The [facility] Physician GroupComment on above: Performed By: #### LUCY, CMP ####[place] [address] USAChloride [Moles/Vol]101 mmol/EZyffeu04-223Yhe [facility] Physician GroupComment on above:Performed By: #### LUCY, CMP ####[place] [address] USACO2 [Moles/Vol]29.2 mmol/VPirzwr66.0-31.0The [facility] Physician GroupComment on above:Performed By: #### LUCY, CMP ####[place] [address] USACreatinine [Mass/Vol]0.65 mg/dLNormal0.60-1.20ThSaint Alphonsus Regional [facility] Center Physician GroupComment on above:Performed By: #### LUCY, CMP ####[place] [address] [place] Creatinine Clr Calc Vlpvtnoh54.88NormNicklaus [facility]'s [facility] Physician [facility] HospitalComment on above:Performed By: #### LUCY, CMP ####[place] [address] USAGFR/1.73 sq M.predicted MDRD (S/P/Bld) [Vol rate/Area]mL/min/{1.73_m2}NormalThe [facility] Physician GroupComment on above: Performed By: #### LUCY, CMP ####[place] [address] USAGlobulin (S) [Mass/Vol]2.7 g/dLNormNicklaus Children's [facility] St[facility] Physician [facility] HospitalComment on above:Performed By: #### LUCY, CMP ####[place] [address] USAGlucose [Mass/Vol]123 mg/eEYmsm08-991Yed [facility] Physician GroupComment on above:Result Comment: Random Glucose Reference Range is dependent on time and content of last meal. Glucose of more than 200 mg/dL in a nonstressed, ambulatory subject supports the diagnosis of Diabetes Mellitus. ADA recommended reference rangePerformed By: #### PHOS, CMP ####[place] [address] [place] [address] USAPotassium [Moles/Vol] 3.7 mmol/LNormal3.5-5.1The [facility] Physician [facility] HospitalComment on above:Performed By: #### PHOS, CMP ####[place] [address] USAProtein [Mass/Vol]6.3 g/dLLow6.4-8.9The [facility] Physician [facility] Comment on above:Performed By: #### PHOS, CMP ####[place] [address] USASodium [Moles/Vol]139 mmol/LNormal 136-145The [facility] Physician GroupComment on above:Performed By: #### PHOS, CMP ####[place] [address] [place] Urea nitrogen [Mass/Vol]16 mg/dLNormal7-25The [facility] Physician GroupComment on above:Performed By: #### PHOS, CMP ####[place] [address] USAGlucose Poct Glucometerson 20-52-5527Yhgeanf2 Glu2: Cleaned MeterNoUniversity Hospitals TriPoint Medical CenterComment on above:Result Comment: PERFORMED BY: [facility] [address] [place] [id number] PATHOLOGIST SENIOR DIGITAL DESIGNER MANDY ACUÑA M.D.Performed By: #### GLULS #### Point of Care testing ,Glucose [Mass/Vol]114 mg/dLCleveland Clinic Indian River Hospital Physician [facility] HospitalComment on above: Result Comment: Random Glucose Reference Range is dependent on time and content of last meal. Glucose of more than 200 mg/dL in a nonstressed, ambulatory subject supports the diagnosis of Diabetes Mellitus.Performed By: #### GLULS #### Point of Care testing ,Glucose [Mass/Vol]107 mg/dLCleveland Clinic Indian River Hospital Physician GroupComment on above: Result Comment: Random Glucose Reference Range is dependent on time and content of last meal. Glucose of more than 200 mg/dL in a nonstressed, ambulatory subject supports the diagnosis of Diabetes Mellitus. PERFORMED BY: [place] [id number] PATHOLOGIST SENIOR DIGITAL DESIGNER MANDY ACUÑA M.D.Performed By: #### GLULS ####Point of Care testing, Glucose [Mass/Vol]177 mg/dLCleveland Clinic Indian River Hospital Physician GroupComment on above: Result Comment: Random Glucose Reference Range is dependent on time and content of last meal. Glucose of more than 200 mg/dL in a nonstressed, ambulatory subject supports the diagnosis of Diabetes Mellitus. PERFORMED BY: [place] [id number] PATHOLOGIST SENIOR DIGITAL DESIGNER MANDY ACUÑA M.D.Performed By: #### GLULS #### Point of Care testing ,Glucose [Mass/Vol]150 mg/dLNoFormerly [facility] Physician GroupComment on above: Result Comment: Random Glucose Reference Range is dependent on time and content of last meal. Glucose of more than 200 mg/dL in a nonstressed, ambulatory subject supports the diagnosis of Diabetes Mellitus. PERFORMED BY: [place] [id number] PATHOLOGIST SENIOR DIGITAL DESIGNER MANDY ACUÑA M.D.Performed By: #### GLULS #### Point of Care testing ,Phosphate [Mass/volume] in Serum or PlasmaOrdered By: Daniel Garza on 12-12-2024 Phosphate [Mass/Vol]Phosphate [Mass/volume] in Serum or PlasmaLow2.5-4.5 City HospitalPhosphoruson 47-69-0137Ibqiasful [Mass/Vol]2.0 mg/dLLow2.5-4.5The [facility] Physician GroupComment on above:Result Comment: PERFORMED BY: [place] [id number] PATHOLOGIST SENIOR DIGITAL DESIGNER MANDY ACUÑA M.D.Performed By: #### PHOS, CMP ####[facility] [place] [address] USAArterial Blood Gason 32-50-5928QLF Base Excess-3.0 mmol/LNormal-3.0-3.0The [facility] Comment on above:Performed By: #### ABG #### Point of Care testing ,ABG Frac Inspired O255 %NormalThe [facility] Physician GroupComment on above: Performed By: #### ABG #### Point of Care testing ,ABG Oxygen Content6.9 mmol/LNormal6.6-9.7The [facility] Physician GroupComment on above:Performed By: #### ABG #### Point of Care testing ,ABG Oxygen Ubhnndytab47.1 %Iacylf69.0-100.0The [facility] Physician GroupComment on above:Performed By: #### ABG #### Point of Care testing ,ABG IEB761.3 mm[Hg]Ejdiwu34.0-45.0The [facility] Physician GroupComment on above:Performed By: #### ABG #### Point of Care testing ,ABG PEEP8 snY33BmixnrMdv [facility] Physician GroupComment on above:Performed By: #### ABG #### Point of Care testing ,ABG PH7.02Nxhgbb7.35-7.45The [facility] Physician GroupComment on above: Performed By: #### ABG #### Point of Care testing ,ABG WC9356.0 mm[Hg]Off scale high80.0-100.0The [facility] Physician GroupComment on above:Performed By: #### ABG #### Point of Care testing ,ABG TV420 mLNormalThe [facility] Physician GroupComment on above:Performed By: #### ABG #### Point of Care testing ,Respiratory CriticalNormNicklaus Children's [facility] at St. [facility] Physician GroupComment on above:Result Comment: Critical Value called on: 12/11/2024 at 04:26 PERFORMED BY: [facility] [address] [place] [address] PATHOLOGIST SENIOR DIGITAL DESIGNER MANDY ACUÑA M.D.Performed By: #### ABG #### Point of Care testing ,Set Respiratory Nhcf54LurcodFzeCleveland Clinic Indian River Hospital Physician GroupComment on above: Performed By: #### ABG #### Point of Care testing ,VBG Draw SiteLeft RadialCleveland Clinic Indian River Hospital Physician GroupComment on above: Performed By: #### ABG #### Point of Care testing ,Ventilator ModeACCleveland Clinic Indian River Hospital Physician GroupComment on above:Performed By: #### ABG #### Point of Care testing ,Arterial Blood GasOrdered By: Daniel Garza on [id number] [Moles/Vol]23.4 mmol/VSwafsp79.0-27.0City HospitalComment on above:Performed By: #### ABG #### Point of Care testing ,HCO3 (Bld) [Moles/Vol]22.2 mmol/LLow23.0-29.0[facility] Comment on above:Performed By: #### ABG #### Point of Care testing ,Complete Blood Count Auto Diffon 88-89-4739Tdbsysrnw (Bld) [#/Vol]0.1 10*3/uL Normal0.0-0.2The [facility] Physician GroupComment on above:Result Comment: PERFORMED BY: [facility] [address] [address] PATHOLOGIST SENIOR DIGITAL DESIGNER MANDY ACUÑA M.D.Performed By: #### GLULS #### Point of Care testing ,Basophils/100 WBC (Bld)0.4 %Normal.The [facility] Physician GroupComment on above:Performed By: #### GLULS #### Point of Care testing ,Eosinophils (Bld) [#/Vol]0.0 10*3/uLNormal0.0-0.45The [facility] Physician [facility] Comment on above:Performed By: #### GLULS #### Point of Care testing ,Eosinophils/100 WBC (Bld)0.0 %Normal.The [facility] Physician GroupComment on above:Performed By: #### GLULS #### Point of Care testing ,Erythrocyte distribution width (RBC) [Ratio]16.3 %High11.9-15.3The [facility] Physician GroupComment on above:Performed By: #### GLULS #### Point of Care testing ,Hematocrit (Bld) [Volume fraction]32.9 %Low34.0-46.4The [facility] Physician GroupComment on above:Performed By: #### GLULS #### Point of Care testing ,Hemoglobin (Bld) [Mass/Vol]10.8 g/dLLow11.8-15.4[facility] Comment on above:Performed By: #### GLULS #### Point of Care testing ,Lymphocytes (Bld) [#/Vol]0.3 10*3/uLLow1.00-4.8The [facility] Comment on above:Performed By: #### GLULS #### Point of Care testing ,Lymphocytes/100 WBC (Bld)1.7 %Normal.The [facility] Physician GroupComment on above:Performed By: #### GLULS #### Point of Care testing ,MCH (RBC) [Entitic mass]28.9 tlRmnyba16.7-34.3The [facility] Comment on above:Performed By: #### GLULS #### Point of Care testing ,MCV (RBC) [Entitic vol]87.9 bANrgyzd99-903Bxm [facility] Physician GroupComment on above:Performed By: #### GLULS #### Point of Care testing ,Mean Corpuscular HGB Conc32.9 g/yLApdxew32.0-35.0The [facility] Comment on above:Performed By: #### GLULS #### Point of Care testing ,Monocytes (Bld) [#/Vol]0.5 10*3/uLNormal0.0-0.8The [facility] Comment on above:Performed By: #### GLULS #### Point of Care testing ,Monocytes/100 WBC (Bld)3.4 %Normal.The [facility] Physician GroupComment on above:Performed By: #### GLULS #### Point of Care testing ,Neutrophils (Bld) [#/Vol]14.5 10*3/uLHigh1.8-7.7The [facility] Comment on above:Performed By: #### GLULS #### Point of Care testing ,Neutrophils/100 WBC (Bld)94.5 %Normal.The [facility] Physician GroupComment on above:Performed By: #### GLULS #### Point of Care testing ,NRBC%0.0 /100{WBC}Normal0-0.5The [facility] Physician GroupComment on above: Performed By: #### GLULS #### Point of Care testing ,Platelet mean volume (Bld) [Entitic vol]7.2 fLNormal6.3-10.7The [facility] Physician GroupComment on above:Performed By: #### GLULS #### Point of Care testing ,Platelets (Bld) [#/Vol]244 10*3/xCUjfggh456-336Rxj [facility] Comment on above:Performed By: #### GLULS #### Point of Care testing ,RBC (Bld) [#/Vol]3.74 10*6/uLNormal3.60-5.00The [facility] Comment on above:Performed By: #### GLULS #### Point of Care testing ,WBC (Bld) [#/Vol]15.4 10*3/uLHigh3.8-11.6The [facility] Physician GroupComment on above:Performed By: #### GLULS #### Point of Care testing ,Comprehensive Metabolic Panelon 56-52-2900Awylizq [Mass/Vol]3.4 g/dLLow3.5-5.7 The [facility] Physician GroupComment on above:Performed By: #### GLULS #### Point of Care testing ,Albumin/Globulin [Mass ratio]1.6 {ratio}NormalThe [facility] Physician [facility] Comment on above:Performed By: #### GLULS #### Point of Care testing ,ALP [Catalytic activity/Vol]69 U/RCxpbcb95-811Vpy [facility] Comment on above:Performed By: #### GLULS #### Point of Care testing ,ALT [Catalytic activity/Vol]76 U/LHigh7-52The [facility] Physician GroupComment on above:Performed By: #### GLULS #### Point of Care testing ,Anion gap [Moles/Vol]11.6 mmol/LNormal6.0-15.0[facility] Physician [facility] Comment on above:Performed By: #### GLULS #### Point of Care testing ,AST [Catalytic activity/Vol]49 U/VGsal83-37Szc [place] Physician GroupComment on above:Performed By: #### GLULS #### Point of Care testing ,Bilirubin [Mass/Vol]0.4 mg/dLNormal0.3-1.0The [facility] Physician GroupComment on above:Performed By: #### GLULS #### Point of Care testing ,Calcium [Mass/Vol]8.1 mg/dLLow8.6-10.3The [facility] Physician GroupComment on above:Performed By: #### GLULS #### Point of Care testing ,Chloride [Moles/Vol]105 mmol/UTrxthf36-764Qfb [facility] Physician GroupComment on above:Performed By: #### GLULS #### Point of Care testing ,CO2 [Moles/Vol]23.7 mmol/JHsctir04.0-31.0The [facility] Physician GroupComment on above:Performed By: #### GLULS #### Point of Care testing ,Creatinine [Mass/Vol]0.74 mg/dLNormal0.60-1.20ThSaint Alphonsus [facility] Physician [facility] Comment on above:Performed By: #### GLULS #### Point of Care testing ,Creatinine Clr Calc Jadntaxv91.88NoFormerly [facility], [facility] Physician GroupComment on above:Performed By: #### GLULS #### Point of Care testing ,GFR/1.73 sq M.predicted MDRD (S/P/Bld) [Vol rate/Area]mL/min/{1.73_m2}NormalGolisano Children'S Hospital [facility] Physician GroupComment on above:Performed By: #### GLULS #### Point of Care testing ,Globulin (S) [Mass/Vol]2.1 g/dLCleveland Clinic Indian River Hospital Physician GroupComment on above:Performed By: #### GLULS #### Point of Care testing ,Glucose [Mass/Vol]134 mg/dDRoji77-230Xxn [facility] Physician GroupComment on above:Result Comment: Random Glucose Reference Range is dependent on time and content of last meal. Glucose of more than 200 mg/dL in a nonstressed, ambulatory subject supports the diagnosis of Diabetes Mellitus. ADA recommended reference rangePerformed By: #### GLULS #### Point of Care testing ,Potassium [Moles/Vol]4.3 mmol/LNormal3.5-5.1The [facility] Comment on above:Performed By: #### GLULS #### Point of Care testing ,Protein [Mass/Vol]5.5 g/dLLow6.4-8.9The [facility] Physician GroupComment on above:Performed By: #### GLULS #### Point of Care testing ,Sodium [Moles/Vol]136 mmol/LSignificant change njdb687-123Vhq [facility] Physician GroupComment on above:Performed By: #### GLULS #### Point of Care testing ,Urea nitrogen [Mass/Vol]21 mg/dLNormal7-e [facility] Physician GroupComment on above:Performed By: #### GLULS #### Point of Care testing ,Glucose Poct Glucometerson 83-00-5539Ejgbwjj [Mass/Vol]132 mg/dLNoFormerly [facility] Physician [facility] HospitalComment on above:Result Comment: Random Glucose Reference Range is dependent on time and content of last meal. Glucose of more than 200 mg/dL in a nonstressed, ambulatory subject supports the diagnosis of Diabetes Mellitus. PERFORMED BY: [address] [place] [address] PATHOLOGIST SENIOR DIGITAL DESIGNER MANDY ACUÑA M.D.Performed By: #### GLULS #### Point of Care testing ,Glucose [Mass/Vol]123 mg/dLCleveland Clinic Indian River Hospital Physician GroupComment on above: Result Comment: Random Glucose Reference Range is dependent on time and content of last meal. Glucose of more than 200 mg/dL in a nonstressed, ambulatory subject supports the diagnosis of Diabetes Mellitus. PERFORMED BY: [facility] [address] [place] [address] PATHOLOGIST SENIOR DIGITAL DESIGNER MANDY ACUÑA M.D.Performed By: #### ABG #### Point of Care testing ,Magnesiumon 63-66-6287Fuabbxyij [Mass/Vol]2.3 mg/dLNormal1.9-2.7The [facility] Physician GroupComment on above:Result Comment: PERFORMED BY: [place] [address] [place] [address] PATHOLOGIST SENIOR DIGITAL DESIGNER MANDY ACUÑA M.D.Performed By: #### GLULS #### Point of Care testing ,Magnesium [Mass/volume] in Serum or PlasmaOrdered By: Daniel Garza on 12-11-2024 Magnesium [Mass/Vol]Magnesium [Mass/volume] in Serum or Plasma1.9-2.7FAshtabula County Medical CenterNo Panel InformationOrdered By: Daniel Garza on 12-11-2024 Arterial Blood Base Excess-3.0 mmol/L-3.0-3.0[facility] Arterial Blood Oxygen Content6.9 mmol/L6.6-9.7FAshtabula County Medical Center Arterial Blood Oxygen Bdrduhavzw40.1 %95.0-100.0City HospitalArterial Blood Partial Pressure CO240.3 mm[Hg]35.0-45.0City HospitalArterial Blood Partial Pressure O2126.0 mm[Hg]Critically high 80.0-100.0City HospitalArterial Blood pH7.367.35-7.45 City HospitalBlood Gas Critical ValueSee commentCity HospitalComment on above:Critical Value called on: 12/11/2024 at 04:26Blood Gas PEEP8 umA5GGejlyngblCity HospitalBlood Gas Sample Site Left radialCity HospitalBlood Gas Set Respiration Rate18 City HospitalBlood Gas Tidal Nyqtwj879 mLCity HospitalBlood Gas Ventilator ModeAcCity HospitalFiO255 %City HospitalPhosphoruson 11-82-2338Zaqiprtyk [Mass/Vol] 2.6 mg/dLNormal2.5-4.5The [facility] Physician GroupComment on above:Performed By: #### GLULS #### Point of Care testing ,Triglyceride [Mass/volume] in Serum or PlasmaOrdered By: Soco Beasley on 54-07-4266Wzdwfezkblwj [Mass/Vol]Triglyceride [Mass/volume] in Serum or Plasma Ffsn48-838MkbfcfjsdCity HospitalComment on above:TRIG ATP III CLASSIFICATIONTRIG less than 150 mg/dL NormalTRIG 150-199 mg/dL Borderline highTRIG 200-500 mg/dL High TRIG greater than 500 mg/dL Very highStandard traceable to the Center for Disease Conrtrol and Prevention (CDC) test method. Triglycerideson 91-38-1958Hwfevwoxwmol [Mass/Vol]158 mg/lEEkqc99-792Pto [facility] Physician GroupComment on above:Result Comment: TRIG ATP III CLASSIFICATION TRIG less than 150 mg/dL Normal TRIG 150-199 mg/dL Borderline high TRIG 200-500 mg/dL High TRIG greater than 500 mg/dL Very high Standard traceable to the Center for Disease Conrtrol and Prevention (CDC) test method. PERFORMED BY: [place] [address] PATHOLOGIST SENIOR DIGITAL DESIGNER MANDY ACUÑA M.D.Performed By: #### TRIG #### [place] [address] USAX-ray reportOrdered By: Ryan Ugalde on 86-66-4891Fawgz reportST. MARY'[facility] [place] [address] XRay Report Signed Patient: Julian Montaño MR#: [id number] : 1955 Acct:[id number] Age/Sex: 69 / F ADM Date: 5 Loc: Room: [address] [place] [address] Type: ADM IN Attending Dr: Daniel Garza [...] Jr, DO 12/11/24831 Signed By: 12/11/24 0833 City HospitalXR chest 1V portableon 75-56-2494IJ chest 1V portableST. MARY'S [facility] [place] [address] [place] [address] XRay Report Signed Patient: Julian Montaño MR#: [id number] : 1955 Acct:[id number] Age/Sex: 69 / F ADM Date: 12/09/24 Loc: Room: [address] [place] [address] Type: ADM IN Attending Dr: Daniel Garza [...] Ugalde Jr, DO 12/11/24831 Signed By: 12/11/24 33[facility] Physician GroupAmphetamine Screen Ql (U)Ordered By: Soco Beasley on 44-99-0352Vzesolakkknl Ql (U)Amphetamines screenNegative [facility] CenterArterial Blood Gason 57-07-9429OJM Base Excess- 2.9 mmol/LNormal-3.0-3.0The [facility] Physician GroupComment on above:Performed By: #### ABG #### Point of Care testing ,ABG Frac Inspired O250 %NormalThe [facility] Physician GroupComment on above: Performed By: #### ABG #### Point of Care testing ,ABG Oxygen Content6.8 mmol/LNormal6.6-9.7The [facility] Physician GroupComment on above:Performed By: #### ABG #### Point of Care testing ,ABG Oxygen Raxrgdhwky17.3 %Ldilsy66.0-100.0The [facility] Physician GroupComment on above:Performed By: #### ABG #### Point of Care testing ,ABG AKJ829.7 mm[Hg]Bwcfgk03.0-45.0The [facility] Physician GroupComment on above:Performed By: #### ABG #### Point of Care testing ,ABG PEEP5 fyJ34XuxkyqBod [facility] Physician GroupComment on above:Performed By: #### ABG #### Point of Care testing ,ABG PH7.34Low7.35-7.45The [facility]ician [facility] HospitalComment on above:Performed By: #### ABG #### Point of Care testing ,ABG PO299.2 mm[Hg]Hfkmsb25.0-100.0The [facility] Physician GroupComment on above:Performed By: #### ABG #### Point of Care testing ,ABG TV450 mLNormalThe [facility] Physician GroupComment on above:Performed By: #### ABG #### Point of Care testing ,CO2 [Moles/Vol]24.0 mmol/BOvzpwt24.0-27.0The [facility] Physician GroupComment on above:Performed By: #### ABG #### Point of Care testing ,HCO3 (Bld) [Moles/Vol]22.7 mmol/LLow23.0-29.0The [facility] Comment on above:Performed By: #### ABG #### Point of Care testing ,Respiratory CriticalNormalThe [place] Physician GroupComment on above:Result Comment: Critical Value called on: 12/10/2024 at 06:05 PERFORMED BY: [facility] [place] [address] PATHOLOGIST SENIOR DIGITAL DESIGNER MANDY ACUÑA M.D.Performed By: #### ABG #### Point of Care testing ,Set Respiratory Qrui58IlalgdWskFormerly [facility]1983 Physician GroupComment on above: Performed By: #### ABG #### Point of Care testing ,VBG Draw SiteLeft RadialCleveland Clinic Indian River Hospital Physician GroupComment on above: Performed By: #### ABG #### Point of Care testing ,Ventilator ModeACCleveland Clinic Indian River Hospital Physician GroupComment on above:Performed By: #### ABG #### Point of Care testing ,ABG Base Excess-4.9 mmol/LLow-3.0-3.0The [facility] Physician GroupComment on above:Performed By: #### GLULS #### Point of Care testing ,ABG Frac Inspired O260 %NormalThe [facility] Physician GroupComment on above: Performed By: #### GLULS #### Point of Care testing ,ABG Oxygen Content6.8 mmol/LNormal6.6-9.7The [facility] Physician GroupComment on above:Performed By: #### GLULS #### Point of Care testing ,ABG Oxygen Fljwjgmdcb09.2 %Wjqsjy39.0-100.0The [facility] Physician GroupComment on above:Performed By: #### GLULS #### Point of Care testing ,ABG HVO734.5 mm[Hg]High35.0-45.0The [facility] Physician GroupComment on above: Performed By: #### GLULS #### Point of Care testing ,ABG PEEP5 yuJ39VcujcrOkzCleveland Clinic Indian River Hospital Physician GroupComment on above:Performed By: #### GLULS #### Point of Care testing ,ABG PH7.28Low7.35-7.45The [facility] Physician GroupComment on above:Performed By: #### GLULS #### Point of Care testing ,ABG PN7808.9 mm[Hg]Off scale high80.0-100.0The [facility] Physician GroupComment on above:Performed By: #### GLULS #### Point of Care testing ,ABG TV500 mLNormalThe [facility] Physician GroupComment on above:Performed By: #### GLULS #### Point of Care testing ,CO2 [Moles/Vol]23.3 mmol/UQiszhd47.0-27.0The [facility] Physician GroupComment on above:Performed By: #### GLULS #### Point of Care testing ,HCO3 (Bld) [Moles/Vol]21.8 mmol/LLow23.0-29.0The [facility] Comment on above:Performed By: #### GLULS #### Point of Care testing ,Respiratory CriticalCleveland Clinic Indian River Hospital Physician GroupComment on above:Result Comment: Critical Value called on: 12/10/2024 at 00:12 PERFORMED BY: [facility] [place] [address] PATHOLOGIST SENIOR DIGITAL DESIGNER MANDY ACUÑA M.D.Performed By: #### GLULS #### Point of Care testing ,Set Respiratory Pbug94IitxnfDcsCleveland Clinic Indian River Hospital Physician GroupComment on above: Performed By: #### GLULS #### Point of Care testing ,VBG Draw SiteRight RadialCleveland Clinic Indian River Hospital Physician GroupComment on above: Performed By: #### GLULS #### Point of Care testing ,Ventilator ModeACCleveland Clinic Indian River Hospital Physician GroupComment on above:Performed By: #### GLULS #### Point of Care testing ,Barbiturates [Presence] in Urine by Screen methodOrdered By: Soco Beasley on 41-97-5694Fmkwnctpcyqd Screen Ql (U)Barbiturates [Presence] in Urine by Screen methodNegUniversity Hospitals Parma Medical CenterBenzodiazepines Screen Ql (U) Ordered By: Soco Beasley on 27-09-3272Nsocyipomyxjslx Ql (U)Benzodiazepines [Presence] in Urine by Screen methodHighNegUniversity Hospitals Parma Medical CenterBenzoylecgonine [Presence] in Urine by Screen methodOrdered By: Soco Beasley on 82-98-9328Hnzlwsdsmefchor Screen Ql (U)Benzoylecgonine [Presence] in Urine by Screen methodNegativeCity HospitalCannabinoids [Presence] in Urine by Screen methodOrdered By: Soco Beasley on 12-10-2024 Cannabinoids Screen Ql (U)Cannabinoids [Presence] in Urine by Screen method NegativeCity HospitalComment on above:These are unconfirmed results and should not be used for legal purposes. Drug Cut-Off Concentration: AMPH 1000 ng/mL MICHAEL 200 ng/mL JAVAN 200 ng/mL COCM 300 ng/mL OP 300 ng/mL PCP 25 ng/mL THC 20 ng/mLComplete Blood Count Auto Diffon 85-56-2995Lklyvgibz (Bld) [#/Vol]0.1 10*3/uLNormal0.0-0.2The [facility] Physician GroupComment on above: Result Comment: PERFORMED BY: [facility] [address] [place] [address] PATHOLOGIST SENIOR DIGITAL DESIGNER MANDY ACUÑA M.D.Performed By: #### ABG #### Point of Care testing ,Basophils/100 WBC (Bld)0.5 %Normal.The [facility] Physician GroupComment on above:Performed By: #### ABG #### Point of Care testing ,Eosinophils (Bld) [#/Vol]0.0 10*3/uLNormal0.0-0.45The [facility] Comment on above:Performed By: #### ABG #### Point of Care testing ,Eosinophils/100 WBC (Bld)0.0 %Normal.The [facility] Physician GroupComment on above:Performed By: #### ABG #### Point of Care testing ,Erythrocyte distribution width (RBC) [Ratio]15.5 %High11.9-15.3The [facility] Physician GroupComment on above:Performed By: #### ABG #### Point of Care testing ,Hematocrit (Bld) [Volume fraction]31.0 %Low34.0-46.4The [facility] Physician GroupComment on above:Performed By: #### ABG #### Point of Care testing ,Hemoglobin (Bld) [Mass/Vol]10.1 g/dLLow11.8-15.4The [facility] Comment on above:Performed By: #### ABG #### Point of Care testing ,Lymphocytes (Bld) [#/Vol]0.2 10*3/uLLow1.00-4.8The [facility] Comment on above:Performed By: #### ABG #### Point of Care testing ,Lymphocytes/100 WBC (Bld)1.2 %Normal.The [facility] Physician GroupComment on above:Performed By: #### ABG #### Point of Care testing ,MCH (RBC) [Entitic mass]28.4 qxBnjqhd52.7-34.3The [facility] Comment on above:Performed By: #### ABG #### Point of Care testing ,MCV (RBC) [Entitic vol]86.7 xTUqfhai20-282Yad [facility] Physician GroupComment on above:Performed By: #### ABG #### Point of Care testing ,Mean Corpuscular HGB Conc32.7 g/zGJrmnkv70.0-35.0The [facility] Comment on above:Performed By: #### ABG #### Point of Care testing ,Monocytes (Bld) [#/Vol]0.5 10*3/uLNormal0.0-0.8The [facility] Comment on above:Performed By: #### ABG #### Point of Care testing ,Monocytes/100 WBC (Bld)3.1 %Normal.The [facility] Physician GroupComment on above:Performed By: #### ABG #### Point of Care testing ,Neutrophils (Bld) [#/Vol]14.4 10*3/uLHigh1.8-7.7The [facility] Physician [facility] Comment on above:Performed By: #### ABG #### Point of Care testing ,Neutrophils/100 WBC (Bld)95.2 %Normal.The [facility] Physician GroupComment on above:Performed By: #### ABG #### Point of Care testing ,NRBC%0.0 /100{WBC}Normal0-0.5The [facility] Physician GroupComment on above: Performed By: #### ABG #### Point of Care testing ,Platelet mean volume (Bld) [Entitic vol]7.0 fLNormal6.3-10.7The [facility] Physician GroupComment on above:Performed By: #### ABG #### Point of Care testing ,Platelets (Bld) [#/Vol]236 10*3/wWKgdnul850-177Aoe [facility] Physician [facility] Comment on above:Performed By: #### ABG #### Point of Care testing ,RBC (Bld) [#/Vol]3.57 10*6/uLLow3.60-5.00The [facility] Physician GroupComment on above:Performed By: #### ABG #### Point of Care testing ,WBC (Bld) [#/Vol]15.2 10*3/uLHigh3.8-11.6The [facility] Physician GroupComment on above:Performed By: #### ABG #### Point of Care testing ,Comprehensive Metabolic Panelon 80-08-7838Cuddypb [Mass/Vol]3.4 g/dLLow3.5-5.7 The [facility] Physician GroupComment on above:Performed By: #### ABG #### Point of Care testing ,Albumin/Globulin [Mass ratio]1.5 {ratio}NormalThe [facility] Physician [facility] Comment on above:Performed By: #### ABG #### Point of Care testing ,ALP [Catalytic activity/Vol]69 U/WOtjztx32-539Axf [facility] Comment on above:Performed By: #### ABG #### Point of Care testing ,ALT [Catalytic activity/Vol]71 U/LHigh7-52The [facility] Physician GroupComment on above:Performed By: #### ABG #### Point of Care testing ,Anion gap [Moles/Vol]10.3 mmol/LNormal6.0-15.0The [facility] Physician [facility] Comment on above:Performed By: #### ABG #### Point of Care testing ,AST [Catalytic activity/Vol]50 U/MAiuw11-90Rro [facility] Physician GroupComment on above:Performed By: #### ABG #### Point of Care testing ,Bilirubin [Mass/Vol]0.4 mg/dLNormal0.3-1.0[facility] Physician GroupComment on above:Performed By: #### ABG #### Point of Care testing ,Calcium [Mass/Vol]7.0 mg/dLLow8.6-10.3The [facility] Physician GroupComment on above:Performed By: #### ABG #### Point of Care testing ,Chloride [Moles/Vol]101 mmol/YQpprxx35-012Vxf [facility] Physician GroupComment on above:Performed By: #### ABG #### Point of Care testing ,CO2 [Moles/Vol]22.0 mmol/SSmrdct61.0-31.0The [facility] Physician GroupComment on above:Performed By: #### ABG #### Point of Care testing ,Creatinine [Mass/Vol]0.64 mg/dLNormal0.60-1.20The [facility] Physician [facility] Comment on above:Performed By: #### ABG #### Point of Care testing ,Creatinine Clr Calc Ikbbhmvw56.14NoUniversity Hospitals TriPoint Medical CenterComment on above:Performed By: #### ABG #### Point of Care testing ,GFR/1.73 sq M.predicted MDRD (S/P/Bld) [Vol rate/Area]mL/min/{1.73_m2}NormalThe [facility] Physician GroupComment on above:Performed By: #### ABG #### Point of Care testing ,Globulin (S) [Mass/Vol]2.2 g/dLNoUniversity Hospitals TriPoint Medical CenterComment on above:Performed By: #### ABG #### Point of Care testing ,Glucose [Mass/Vol]151 mg/fTCulx83-081Kqq [facility] Physician GroupComment on above:Result Comment: Random Glucose Reference Range is dependent on time and content of last meal. Glucose of more than 200 mg/dL in a nonstressed, ambulatory subject supports the diagnosis of Diabetes Mellitus. ADA recommended reference rangePerformed By: #### ABG #### Point of Care testing ,Potassium [Moles/Vol]3.3 mmol/LLow3.5-5.1The [facility] Physician GroupComment on above:Performed By: #### ABG #### Point of Care testing ,Protein [Mass/Vol]5.6 g/dLLow6.4-8.9The [facility] Physician GroupComment on above:Performed By: #### ABG #### Point of Care testing ,Sodium [Moles/Vol]130 mmol/REuw660-109Xyi [facility] Physician GroupComment on above:Performed By: #### ABG #### Point of Care testing ,Urea nitrogen [Mass/Vol]14 mg/dLNormal7-25The [facility] Physician GroupComment on above:Performed By: #### ABG #### Point of Care testing ,Drug Screen,Urineon 00-28-5741Jdqqoqohfnn Screen,UrineNegativeNormalNegativeThe [facility] Physician GroupComment on above:Performed By: #### URDS #### [place] [address] USABarbiturate Screen,UrineNegativeNormalNegativeThe [facility] Physician GroupComment on above:Performed By: #### URDS #### [place] [address] USABenzodiazepines Screen,UrinePositiveHighNegativeThe [facility] Physician GroupComment on above:Performed By: #### URDS #### [place] [address] USACannabinoid Screen,UrineNegativeNormalNegativeThe Scionhealth Physician GroupComment on above:Result Comment: These are unconfirmed results and should not be used for legal purposes. Drug Cut-Off Concentration: AMPH 1000 ng/mL MICHAEL 200 ng/mL JAVAN 200 ng/mL COCM 300 ng/mL OP 300 ng/mL PCP 25 ng/mL THC 20 ng/mL PERFORMED BY: [place] [address] PATHOLOGIST SENIOR DIGITAL DESIGNER MANDY ACUÑA M.D.Performed By: #### URDS #### [facility] [address] [place] [address] USACocaine Screen,UrineNegativeNormalNegativeThe Scionhealth Physician GroupComment on above:Performed By: #### URDS #### [facility] [address] [place] [address] USAOpiate Screen,UrinePositiveHighNegativeThe [facility]ionhealth Physician GroupComment on above:Performed By: #### URDS #### [facility] [address] [place] [address] USAPhencyclidine Screen,UrineNegativeNormalNegativeThe Scionhealth Physician GroupComment on above:Performed By: #### URDS #### [place] [address] USAECH echo transthoracicon 86-54-6216NYD echo transthoracic [facility] Main [place] [address] [place] [address] Echocardiogram Signed Patient: Julian Montaño MR#: [id number] [birth year] : 1955 Acct:[id number] Age/Sex: 69 / F ADM Date: 12/09/24 Loc: Room: [address] [place] [address] Type: ADM IN Attending Dr: Daniel Garza [...] Signed By: Gildardo Pastor MD 12/10/24 1712NormalThe [facility] Physician [facility] HospitalGlucose Poct Glucometerson 19-91-7470Clkcezd [Mass/Vol]135 mg/dL NormalThe [facility]ionhealth Physician GroupComment on above:Result Comment: Random Glucose Reference Range is dependent on time and content of last meal. Glucose of more than 200 mg/dL in a nonstressed, ambulatory subject supports the diagnosis of Diabetes Mellitus. PERFORMED BY: [place] [address] PATHOLOGIST SENIOR DIGITAL DESIGNER MANDY ACUÑA M.D.Performed By: #### GLULS #### Point of Care testing ,Magnesiumon 10-25-4303Flqwasyro [Mass/Vol]1.7 mg/dLLow1.9-2.7The [facility] Physician GroupComment on above:Result Comment: PERFORMED BY: [place] [address] PATHOLOGIST SENIOR DIGITAL DESIGNER MANDY ACUÑA M.D.Performed By: #### URDS #### [place] [address] USAOpiates [Presence] in Urine by Screen methodOrdered By: Soco Beasley on 56-37-8034Goxpqez Screen Ql (U)Opiates [Presence] in Urine by Screen methodHighNegUniversity Hospitals Parma Medical CenterPhencyclidine Screen Ql (U)Ordered By: Soco Beasley on 12-17-4642Imhtsiqypcdzd Ql (U)Phencyclidine [Presence] in Urine by Screen methodNegUniversity Hospitals Parma Medical Center Troponin I High Sensitivityon 45-13-1775Vkridusp I High Kczefcgxluo9329Tki scale high0-15The [facility] Physician GroupComment on above:Result Comment: Critical Result : Called to and read back by: VIOLA KAY at: 12/10/2024 07:21:46 by:CELESTINA The Troponin units of report have been changed to meet the Chest Pain Accreditation requirement, element EC5.M1l2. Troponin units are changed from pg/ml to ng/L. Also, the decimal is removed and results are in whole numbers. PERFORMED BY: [place] [id number] PATHOLOGIST SENIOR DIGITAL DESIGNER MANDY ACUÑA M.D.Performed By: #### GLULS #### Point of Care testing ,Troponin I.cardiac [Mass/volume] in Serum or Plasma by Detection limit <= 0.01 ng/Ordered By: Soco Beasley on 34-88-0491Fbjcrfko I.cardiac DL <= 0.01 ng/mL [Mass/Vol]Troponin I.cardiac [Mass/volume] in Serum or Plasma by Detection limit <= 0.01 ng/Critically high0-15City HospitalComment on above:Critical Result : Called to and read back by: VIOLA KAY at: 12/10/2024 07:21:46 by:CELESTINAThe Troponin units of report have been changed to meet the Chest Pain Accreditation requirement, element EC5.M1l2. Troponin units are changed from pg/ml to ng/L. Also, the decimal is removed and results are in whole numbers.X-ray reportOrdered By: Ryan Ugalde on 79-11-5005Hyrug report [facility] [place] [address] XRay Report Signed Patient: Julian Montaño MR#: [id number] : 1955 Acct:[id number] Age/Sex: 69 / F ADM Date: 5 Loc: Room: [address] [place] [address] Type: ADM IN Attending Dr: Soco Beasley MD Copies to: Soco Beasley MD~ Ordering Provider: Soco Beasley MD Date of Service: 12/10/24 XR/XR chest 1V portable: Intubated SINGLE VIEW CHEST CLINICAL HISTORY: Transfer from [place]. Following responsive. COMPARISON: Chest 12/09/2024 FINDINGS: Enteric [...] DO 12/10/24 0912 Signed By: 12/10/24 0913 [facility] Main [address] [address] XRay Report Signed Patient: Julian Montaño MR#: [id number] : 1955 Acct:[id number] Age/Sex: 69 / F ADM Date: 5 Loc: 4C Room: [address] [place] [address] Type: ADM IN Attending Dr: Soco Beasley [...] DO 12/10/24 0831 Signed By: 12/10/24 0833 City HospitalX-ray reportOrdered By: Torsten Toledo on 66-54-4551Armvo [address] [address] XRay Report Signed Patient: Julian Montaño MR#: [id number] : 1955 Acct:[id number] Age/Sex: 69 / F ADM Date: 5 Loc: 4C Room: [address] [place] [address] Type: ADM IN Attending Dr: Soco Beasley [...] Torsten Toledo M.D.12/10/2024 8:31 AM Dictation Location: [place] [address] Transcribed By: [facility] 12/10/[address] Dictated By: Torsten Toledo MD 12/10/24 0829 Signed By: 12/10/24 0831 [facility] Work Phone: XR abdomen 1Von 95-33-7116WX abdomen 1VST[facility] Main [place] [address] [place] [address] XRay Report Signed Patient: Julian Montaño MR#: [id number] [birth year] : 1955 Acct:[id number] Age/Sex: 69 / F ADM Date: 12/09/24 Loc: Room: [address] [place] [address] Type: ADM IN Attending Dr: Soco Beasley [...] Jr DO 12/10/24 0831 Signed By: 12/10/24 0833[facility] Physician GroupXR chest 1V portableon 47-46-1817KG chest 1V [facility] Main [place] [id number] XRay Report Signed Patient: Julian Montaño MR#: [id number] [birth year] : 1955 Acct:[id number] Age/Sex: 69 / F ADM Date: 12/09/24 Loc: Room: [address] [place] [address] Type: ADM IN Attending Dr: Soco Beasley MD Copies to: Soco Beasley MD Ordering Provider: Soco Beasley MD Date of Service: 12/10/24 XR/XR chest 1V portable: Intubated SINGLE VIEW CHEST CLINICAL HISTORY: Transfer from [place]. Following responsive. COMPARISON: Chest 12/09/2024 FINDINGS: Enteric [...] Jr, DO 12/10/24 0912 Signed By: 12/10/24 0913[facility] Physician GroupXR chest 1V [facility] Main [address] [address] XRay Report Signed Patient: Julian Montaño MR#: [id number] [birth year] : 1955 Acct:[id number] Age/Sex: 69 / F ADM Date: 12/09/24 Loc: Room: [address] [place] [address] Type: ADM IN Attending Dr: Soco Beasley [...] Torsten Toledo M.D.12/10/2024 8:31 AM Dictation Location: [place] [address] Transcribed By: [facility] 12/10/24 0831 Dictated By: Torsten Toledo MD 12/10/24 0829 Signed By: 12/10/24 0831[facility] Physician GroupAerobic Cultureon 12-09-2024 Aerobic CultureLight Normal Respiratory Chase 2 Days Gram Stain Result 3+ White Blood Cells Rare Epithelial Cells 4+ Gram Positive Cocci in Chains AND PAIRS PERFORMED BY: [address] [address] PATHOLOGIST SENIOR DIGITAL DESIGNER MANDY ACUÑA M.D.NormalThe Scionhealth Physician GroupComment on above: Performed By: #### GLULS #### Point of Care testing ,Aerobic cultureOrdered By: Soco Beasley on 88-68-2713Mykcxfai identified Aer cx Nom (Unsp spec)Aerobic cultureCity HospitalAnisocytosis LM Ql (Bld)Ordered By: Soco Beasley on 06-71-7233Arklslnxprfl Ql (Bld)Anisocytosis [Presence] in Blood by Light microscopyCity HospitalArterial Blood Gason 88-49-6978ASG Base Excess-4.7 mmol/LLow-3.0-3.0The [facility] Physician GroupComment on above:Performed By: #### ABG #### Point of Care testing ,ABG Frac Inspired O240 %NormalThe Scionhealth Physician GroupComment on above: Performed By: #### ABG #### Point of Care testing ,ABG Oxygen Content6.5 mmol/LLow6.6-9.7The [facility]ionhealth Physician GroupComment on above:Performed By: #### ABG #### Point of Care testing ,ABG Oxygen Sqardswzol28.5 %Low95.0-100.0The [facility] Physician GroupComment on above:Performed By: #### ABG #### Point of Care testing ,ABG CCJ993.0 mm[Hg]Off scale high35.0-45.0The [facility] Physician GroupComment on above:Performed By: #### ABG #### Point of Care testing ,ABG PEEP5 oxH32GimlhbBbcNicklaus Children's Hospital at St[facility] Physician GroupComment on above:Performed By: #### ABG #### Point of Care testing ,ABG PH7.23Low7.35-7.45The [facility] Physician GroupComment on above:Performed By: #### ABG #### Point of Care testing ,ABG PO266.7 mm[Hg]Low80.0-100.0The [facility] Physician GroupComment on above: Performed By: #### ABG #### Point of Care testing ,ABG TV450 mLNormalThe [facility]ionhealth Physician GroupComment on above:Performed By: #### ABG #### Point of Care testing ,CO2 [Moles/Vol]25.1 mmol/AQcjdro69.0-27.0The [facility] Physician GroupComment on above:Performed By: #### ABG #### Point of Care testing ,HCO3 (Bld) [Moles/Vol]23.3 mmol/UZnnucp89.0-29.0[facility] Physician Group Comment on above:Performed By: #### ABG #### Point of Care testing ,Respiratory CriticalNormNicklaus [facility] St. [facility] Physician GroupComment on above:Result Comment: Critical Value called on: 12/09/2024 at 21:27 PERFORMED BY: [address] [address] PATHOLOGIST SENIOR DIGITAL DESIGNER MANDY ACUÑA M.D.Performed By: #### ABG #### Point of Care testing ,Set Respiratory Cyrd68PhhoanHfx[address] [place] [address] Physician GroupComment on above: Performed By: #### ABG #### Point of Care testing ,VBG Draw SiteLeft RadialC[facility] Clinic [facility] Hospital Physician GroupComment on above: Performed By: #### ABG #### Point of Care testing ,Ventilator ModeACCleveland Clinic Indian River Hospital Physician GroupComment on above:Performed By: #### ABG #### Point of Care testing ,Band form neutrophils/100 WBC Manual cnt (Bld)Ordered By: Soco Beasley on 75-32-4052Noij form neutrophils/100 WBC (Bld)Peripheral white blood cell differential % bands, microscopic examDavis Memorial Hospital[address] Blood Cultureon 53-24-6005Ukazdsay identified Cx Nom (Bld)NO GROWTH 5 DAYS PERFORMED BY: [address] [address] PATHOLOGIST SENIOR DIGITAL DESIGNER MANDY ACUÑA M.D.[facility] Physician GroupComment on above: Performed By: #### GLULS #### Point of Care testing ,Bacteria identified Cx Nom (Bld)NO GROWTH 5 DAYS PERFORMED BY: [address] [address] PATHOLOGIST SENIOR DIGITAL DESIGNER MANDY ACUÑA M.D.[facility] Physician GroupComment on above: Performed By: #### GLULS #### Point of Care testing ,[place] cells [Presence] in Blood by Light microscopyOrdered By: Soco Beasley on 54-33-9346Ukyq cells LM Ql (Bld)Florinda cells [Presence] in Blood by Light microscopyCity HospitalComprehensive Metabolic Panelon 77-93-1043Qchnrmm [Mass/Vol]3.6 g/dLNormal3.5-5.7The [facility] Comment on above:Performed By: #### ABG #### Point of Care testing ,Albumin/Globulin [Mass ratio]1.6 {ratio}NormalThe [facility] Comment on above:Performed By: #### ABG #### Point of Care testing ,ALP [Catalytic activity/Vol]78 U/WEdbjfh99-198Psj [facility] Comment on above:Result Comment: PERFORMED BY: [facility] Ly [address] [address] PATHOLOGIST SENIOR DIGITAL DESIGNER MANDY ACUÑA M.D.Performed By: #### ABG #### Point of Care testing ,ALT [Catalytic activity/Vol]82 U/LHigh7-52The [facility] Physician GroupComment on above:Performed By: #### ABG #### Point of Care testing ,Anion gap [Moles/Vol]8.6 mmol/LNormal6.0-15.0The [facility] Physician [facility] Comment on above:Performed By: #### ABG #### Point of Care testing ,AST [Catalytic activity/Vol]61 U/THcjk74-48Icz [facility] Physician GroupComment on above:Performed By: #### ABG #### Point of Care testing ,Bilirubin [Mass/Vol]0.4 mg/dLNormal0.3-1.0The [facility] Physician GroupComment on above:Performed By: #### ABG #### Point of Care testing ,Calcium [Mass/Vol]7.1 mg/dLLow8.6-10.3The [facility] Physician GroupComment on above:Performed By: #### ABG #### Point of Care testing ,Chloride [Moles/Vol]97 mmol/SAwh84-344Wed [facility] Physician GroupComment on above:Performed By: #### ABG #### Point of Care testing ,CO2 [Moles/Vol]24.6 mmol/EPtyomc97.0-31.0The [facility] Physician GroupComment on above:Performed By: #### ABG #### Point of Care testing ,Creatinine [Mass/Vol]0.68 mg/dLNormal0.60-1.20The [facility] Comment on above:Performed By: #### ABG #### Point of Care testing ,GFR/1.73 sq M.predicted MDRD (S/P/Bld) [Vol rate/Area]mL/min/{1.73_m2}NormalThe [facility] Physician GroupComment on above:Performed By: #### ABG #### Point of Care testing ,Globulin (S) [Mass/Vol]2.3 g/dLCleveland Clinic Indian River Hospital Physician [facility] HospitalComment on above:Performed By: #### ABG #### Point of Care testing ,Glucose [Mass/Vol]186 mg/hTAsbn88-376Grb [facility] Physician GroupComment on above:Result Comment: Random Glucose Reference Range is dependent on time and content of last meal. Glucose of more than 200 mg/dL in a nonstressed, ambulatory subject supports the diagnosis of Diabetes Mellitus. ADA recommended reference rangePerformed By: #### ABG #### Point of Care testing ,Potassium [Moles/Vol]3.2 mmol/LLow3.5-5.1The [facility] Physician GroupComment on above:Performed By: #### ABG #### Point of Care testing ,Protein [Mass/Vol]5.9 g/dLLow6.4-8.9The [facility] HospitalComment on above:Performed By: #### ABG #### Point of Care testing ,Sodium [Moles/Vol]127 mmol/PTml196-951Fue [facility] Physician GroupComment on above:Performed By: #### ABG #### Point of Care testing ,Urea nitrogen [Mass/Vol]16 mg/dLNormal7-25The [facility] Physician [facility] HospitalComment on above:Performed By: #### ABG #### Point of Care testing ,Diff and CBCon 24-42-2963Rmsfeckcouxf Ql (Bld)SlightNoUniversity Hospitals TriPoint Medical CenterComment on above:Performed By: #### ABG #### Point of Care testing ,Band form neutrophils/100 WBC (Bld)27 %High0-5The [facility] Comment on above:Performed By: #### ABG #### Point of Care testing ,Crenated RBCSlightCleveland Clinic Indian River Hospital Physician GroupComment on above:Performed By: #### ABG #### Point of Care testing ,Erythrocyte distribution width (RBC) [Ratio]15.4 %High11.9-15.3The [facility] Physician GroupComment on above:Performed By: #### ABG #### Point of Care testing ,Hematocrit (Bld) [Volume fraction]33.0 %Low34.0-46.4The [facility] Physician GroupComment on above:Performed By: #### ABG #### Point of Care testing ,Hemoglobin (Bld) [Mass/Vol]10.7 g/dLLow11.8-15.4ThSaint Alphonsus Regional [facility] Center Physician [facility] Comment on above:Performed By: #### ABG #### Point of Care testing ,Lymphocytes/100 WBC (Bld)0 %Bnk67-92Yvp [facility] Physician GroupComment on above:Performed By: #### ABG #### Point of Care testing ,MCH (RBC) [Entitic mass]28.1 mkJimylm55.7-34.3The [facility] Comment on above:Performed By: #### ABG #### Point of Care testing ,MCV (RBC) [Entitic vol]87.0 bJWtftli19-707Iea [place] Physician GroupComment on above:Performed By: #### ABG #### Point of Care testing ,Mean Corpuscular HGB Conc32.3 g/hRPfbatw04.0-35.0The [facility] Comment on above:Performed By: #### ABG #### Point of Care testing ,MicrocytosisSlightNoFormerly [facility], 1928[facility]1983 Physician GroupComment on above:Performed By: #### ABG #### Point of Care testing ,Monocytes/100 WBC (Bld)2 %Normal2-11[facility] Physician GroupComment on above:Performed By: #### ABG #### Point of Care testing ,Platelet EstimateNormalNormalC[facility] Clinic [facility] Hospital Physician GroupComment on above:Performed By: #### ABG #### Point of Care testing ,Platelet mean volume (Bld) [Entitic vol]6.9 fLNormal6.3-10.7The [facility] Physician GroupComment on above:Result Comment: PERFORMED BY: [place] [address] PATHOLOGIST SENIOR DIGITAL DESIGNER MANDY ACUÑA M.D.Performed By: #### ABG #### Point of Care testing ,Platelet MorphologyNormalNormHCA Florida Starke Emergency Physician GroupComment on above:Result Comment: PERFORMED BY: [place] [id number] PATHOLOGIST SENIOR DIGITAL DESIGNER MANDY ACUÑA M.D.Performed By: #### ABG #### Point of Care testing ,Platelets (Bld) [#/Vol]236 10*3/cTGbbejt985-838Vwx [facility]ician [facility] Comment on above:Performed By: #### ABG #### Point of Care testing ,PoikilocytosisSScotland Memorial Hospital Physician GroupComment on above: Performed By: #### ABG #### Point of Care testing ,PolychromasiaSScotland Memorial Hospital Physician GroupComment on above: Performed By: #### ABG #### Point of Care testing ,RBC (Bld) [#/Vol]3.80 10*6/uLNormal3.60-5.00The [facility] Comment on above:Performed By: #### ABG #### Point of Care testing ,Segmented neutrophils/100 WBC (Bld)71 %Numh40-62Pta [facility] Comment on above:Performed By: #### ABG #### Point of Care testing ,WBC (Bld) [#/Vol]15.9 10*3/uLHigh3.8-11.6The [facility] Physician GroupComment on above:Performed By: #### ABG #### Point of Care testing ,ECG 12 lead ECGon 46-59-1057DTJ 12 lead ECGST. [facility] Main [place] [id number] Electrocardiograph Report Signed Patient: Julian Montaño MR#: [id number] [birth year] : 1955 Acct:[id number] Age/Sex: 69 / F ADM Date: 12/09/24 Loc: Room: [address] [place] [address] Type: ADM IN Attending Dr: Daniel Garza [...] block Abnormal ECG Confirmed by Krissy Cortez ([id number]) on 12/12/2024 12:01:02 AM Referred By: Electronically Signed By: Krissy Cortez Transcribed By: MUS Signed By Krissy Cortez MD [address] [place] [address] Physician GroupErythrocyte morphology finding [Identifier] in BloodOrdered By: Soco Beasley on 65-57-6967FHZ morphology finding Nom (Bld)RBC morphologyCity HospitalGram Stainon 05-22-8217Ugvgdarjbwu observation Gram stain Nom (Unsp spec)Gram Stain Result 3+ White Blood Cells Rare Epithelial Cells 4+ Gram Positive Cocci in Chains AND PAIRS PERFORMED BY: [place] [address] PATHOLOGIST SENIOR DIGITAL DESIGNER MANDY CalvoThe [facility] Physician GroupComment on above: Performed By: #### GLULS #### Point of Care testing ,Gram stain microscopyOrdered By: Soco Beasley on 87-90-8485Khskhewjbbr observation Gram stain Nom (Unsp spec)Gram stain microscopyCity HospitalLaboratory - Microbiology and Antimicrobial susceptibilityOrdered By: Soco Beasley on 37-78-8594Zeyiamoj identified Cx Nom (Bld)NO GROWTH 5 DAYS City HospitalBacteria identified Cx Nom (Bld)NO GROWTH 5 DAYSCity HospitalLactate [Moles/volume] in Serum or Plasma Ordered By: Soco Beasley on 82-31-9280Shtjues [Moles/Vol]Lactate [Moles/volume] in Serum or Plasma0.5-1.9City HospitalComment on above: Lactic Acid reference range has been updated to 0.5 1.9 mmol/L and the critical range of 2.0 or greater.Lactic Acidon 33-38-1379Ydixajn [Moles/Vol]1.4 mmol/L Normal0.5-1.9The [facility] Physician GroupComment on above:Result Comment: Lactic Acid reference range has been updated to 0.5 ? 1.9 mmol/L and the critical range of 2.0 or greater. PERFORMED BY: [address] [place] [address] PATHOLOGIST SENIOR DIGITAL DESIGNER MANDY ACUÑA M.D.Performed By: #### GLULS #### Point of Care testing ,Lactate [Moles/Vol]1.3 mmol/LNormal0.5-1.9The [facility] Physician [facility] HospitalComment on above:Result Comment: Lactic Acid reference range has been updated to 0.5 ? 1.9 mmol/L and the critical range of 2.0 or greater. PERFORMED BY: [facility] [address] [facility]PITALRiaLakeisha [place] [address] PATHOLOGIST SENIOR DIGITAL DESIGNER MANDY ACUÑA M.D.Performed By: #### GLULS #### Point of Care testing ,Lymphocytes/100 WBC Manual cnt (Bld)Ordered By: Soco Beasley on 12-09-2024 Lymphocytes/100 WBC (Bld)Lymphocytes/100 leukocytes in Blood by Manual countLow 18-42City HospitalMicrocytes LM Ql (Bld)Ordered By: Soco Beasley on 95-28-0366Pysazykngb Ql (Bld)Microcytes [Presence] in Blood by Light microscopyCity HospitalMonocytes/100 WBC Manual cnt (Bld) Ordered By: Soco Beasley on 95-71-3279Pnimlpdqh/100 WBC (Bld)Monocytes/100 leukocytes in Blood by Manual count2-11City HospitalPlatelet adequacy [Presence] in Blood by Light microscopyOrdered By: Soco Beasley on 91-62-3365Ozlobsaik LM Ql (Bld)Platelet adequacy [Presence] in Blood by Light microscopyNoSelect Medical Specialty Hospital - TrumbullPlatelet morphology finding [Identifier] in BloodOrdered By: Soco Beasley on 72-87-9270Qyqgvsii morphology finding Nom (Bld)Platelet morphology finding [Identifier] in BloodNormal City HospitalPoikilocytosis [Presence] in Blood by Light microscopyOrdered By: Soco Beasley on 99-09-0904Jvrjazfcwhjdhg LM Ql (Bld) Poikilocytosis [Presence] in Blood by Light microscopyCity HospitalPolychromasia [Presence] in Blood by Light microscopyOrdered By: Soco Beasley on 04-66-1775Ryaideltzjwso LM Ql (Bld)Polychromasia [Presence] in Blood by Light microscopyAultman Hospitalegmented neutrophils/100 WBC Manual cnt (Bld)Ordered By: Soco Beasley on 59-92-6795Mjhqjdvsl neutrophils/100 WBC (Bld)Manual blood segmented neutrophils/100 ebellqqmtxYxjx32-98MwvhycdzcCity HospitalTriglycerideson 72-55-8988Qjsllshjokhu [Mass/Vol]63 mg/dL Iijqkj01-489Ero [facility] Physician GroupComment on above:Result Comment: TRIG ATP III CLASSIFICATION TRIG less than 150 mg/dL Normal TRIG 150-199 mg/dL Borderline high TRIG 200-500 mg/dL High TRIG greater than 500 mg/dL Very high Standard traceable to the Center for Disease Conrtrol and Prevention (CDC) test method. PERFORMED BY: [address] [place] [address] PATHOLOGIST SENIOR DIGITAL DESIGNER MANDY ACUÑA M.D.Performed By: #### GLULS #### Point of Care testing ,Troponin I High Sensitivityon 13-09-1660Tmnyukxs I High Ohecbnufsdt0967Mhl scale high0-15The [facility] Physician GroupComment on above:Result Comment: Critical Result : Called to and read back by: VIOLA KAY at: 12/09/2024 23:07:02 by:GENA The Troponin units of report have been changed to meet the Chest Pain Accreditation requirement, element EC5.M1l2. Troponin units are changed from pg/ml to ng/L. Also, the decimal is removed and results are in whole numbers. PERFORMED BY: [facility] [address] PATHOLOGIST SENIOR DIGITAL DESIGNER MANDY ACUÑA M.D.Performed By: #### ABG #### Point of Care testing ,HbA1c (Bld) [Mass fraction]on 76-73-1500Nesqqijglgywoh and review of laboratory resultsNormalLake Norman Regional Medical CenterLaboratory - Hematology and Cell countson 05-19-0568QlE4k (Bld) [Mass fraction]6.1 %[facility] TOMOSYNTHESIS SCREENING BIon 35-86-6579Xxs[address] [address] Mammography Report Signed Patient: JULIAN MONTAÑO MR#: [id number] : 1955 Acct:[id number] Age/Sex: 68 / F ADM Date: 01/16/24 Loc: MAMMO Attending Dr: Shaikh Gonzalo Hooker Ordering Physician: Shaikh Morro Sánchez Results: Date of Service: 01/16/24 Follow Up: Procedure(s): MM tomosynthesis screening BI Accession Number(s): [id number] cc: Shaikh Morro Sánchez Patient Name: JULIAN MONTAÑO MR#: [id number] : 1955 Exam Date: 01/16/2024 Ordering Doctor: [...] [facility] BREAST COMPOSITION: Almost entirely fatty. FINDINGS: [...] M.D. Signed By: 01/16/24910 DD/ 9 TD/TT: Maintenance Mechanic Telephone:TBHRadiology, Radiologist, - 01/16/2024 [place] [address] Mammography Report Signed Patient: JULIAN MONTAÑO MR#: [id number] : 1955 Acct:[id number] Age/Sex: 68 / F ADM Date: 01/16/24 Loc: MAMMO Attending Dr: Shaikh Gonzalo Hooker Ordering Physician: Shaikh Morro Sánchez Results: Date of Service: 01/16/24 Follow Up: Procedure(s): MM tomosynthesis screening BI Accession Number(s): [id number] cc: Shaikh Morro Sánchez Patient Name: JULIAN MONTAÑO MR#: [id number] : 1955 Exam Date: 01/16/2024 Ordering Doctor: [...] [facility] BREAST COMPOSITION: Almost entirely fatty. FINDINGS: [...] M.D. Signed By: 01/16/24910 DD/ 9 TD/TT: Maintenance Mechanic Telephone: [facility] CenterRadiology Study observation (narrative)[facility] TOMOSYNTHESIS SCREENING BIOrdered By: Radiologist Radiology on 17-81-3693UQIU kooldiner Work Phone: rt PULMONARY FUNCTION TESTon 67-50-2450[place]era, [place] [address] Respiratory Report Signed Patient: JULIAN MONTAÑO MR#: [id number] : 1955 Acct:[id number] Age/Sex: 68 / F ADM Date: 12/12/23 Loc: CARD Attending Dr: Shaikh Gonzalo Hooker Ordering Physician: Shaikh Morro Sánchez Date of Service: 12/12/23 Procedure(s): RT pulmonary function test Accession Number(s): [id number] cc: [facility] Test Date: 2023-12-12 Pat Name: JULIAN MONTAÑO Department: Room: - Gender: Female Radio Communications Mechanician: Zaina Albarado RRT : 1955 Requested By: [id number] Order Number: [id number] Yani MD: [place] Interpretive Statements Pulmonary [...] D.O. Signed By: 12/21/2380112/21/23801 DD/ 9 TD/TT: Maintenance Mechanic Telephone:TBHRadiology, Radiologist, - 12/21/2023 [place] [address] Respiratory Report Signed Patient: JULIAN MONTAÑO MR#: [id number] : 1955 Acct:[id number] Age/Sex: 68 / F ADM Date: 12/12/23 Loc: CARD Attending Dr: Shaikh Gonzalo Hooker Ordering Physician: Shaikh Morro Sánchez Date of Service: 12/12/23 Procedure(s): RT pulmonary function test Accession Number(s): [id number] cc: The [facility] Test Date: 2023-12-12 Pat Name: JULIAN MONTAÑO Department: Room: - Gender: Female Radio Communications Mechanician: Zaina Albarado RRT : 1955 Requested By: [id number] Order Number: [id number] Reading MD: [place] Interpretive Statements Pulmonary [...] D.O. Signed By: 12/21/2380112/21/23801 DD/ 0910 TD/TT: Maintenance Mechanic Telephone: SONI Saldana PULMONARY FUNCTION TESTOrdered By: Radiologist Radiology on 46-22-6133TNKN kooldiner Work Phone: Neurology Forms- Texton 69-52-3377Hfafpdcxl Forms- [id number]#1.00TIFFOhioHealthConsent for Treatmenton 43-71-8628Yjwtwyh for Treatment [id number]#1.00TIFUC HealthRT PULMONARY FUNCTION TESTon 90-63-3461Ggjrximbe Study observation (narrative)[facility] CenterPhysician Orderon 08-40-3137Mdwupyoby Order [id number]#1.00TIFUC HealthMRI Brain w/ + w/o Contraston 72-31-2887USA Brain w/ + w/o ContrastExam Date/Time: 11/30/2023 [...] Technical Comments Vueway Contrast amount in ml's: 6NormalAvita Health SystemMRI Spine Cervical w/o Contraston 85-28-7752VOG Spine Cervical w/o ContrastExam Date/Time: 11/30/2023 17:25 [...] Transcribed by: SANA Technologist: CORDELIA Technical Comments NoneNormalAvita Health SystemBUNon 28-74-7508Ural nitrogen [Mass/Vol]17 mg/dLNormal5-[facility] Health SystemComment on above:Performed By: #### [id number], [id number], [id number] #### Chan [facility] [address] [place] [address]Apyycfp for Treatmenton 02-80-0589Pfzocfd for Treatment [id number]#1.00TIFFNoKing's Daughters Medical Center OhioCreatinineon 14-31-8424Lhmzmiwuhg [Mass/Vol]0.8 mg/dLNormal0.5-1.3Fisher [facility] Harbor HospitalComment on above:Performed By: #### [id number], [id number], [id number] #### Chan [facility] [address], [place] [address]RFR - MRI Screening Formon 33-50-6886CQY - MRI Screening Form [id number]#1.00TIFFNoKing's Daughters Medical Center OhioeGFRon 67-77-7607dGCU11 mL/min/1.73 z5Dxjayb>=59Avita Health SystemComment on above:Order Comment: Order added by Discern Expert.Performed By: #### [id number], [id number], [id number] #### Dustin [facility] [address], [place] [address]Sydmyfnap Orderon 72-14-2027Syhoorinp Order [id number]#1.00TIFUC HealthCBC AUTO DIFFon 94-72-8815JWFW #0.1 103/ulNormal0.0-0.1[facility] Main CampusComment on above:Performed By: #### CBC #### [facility] [address] [address] [address] Stan AcevesBasophils/100 WBC (Bld)0.7 %Normal0.2-2.0[facility] Comment on above:Performed By: #### CBC #### [facility] [address] [address] [address] Stan Anderson #0.1 103/ulNormal0.0-0.7The [facility] HospitalComment on above: Performed By: #### CBC #### [facility] [address] [address] [address] Stan Buenoosinophils/100 WBC (Bld)1.0 %Normal0.9-7.0[facility] Comment on above:Performed By: #### CBC #### [facility] [address] [place] [address] Dr. Stan Buenorythrocyte distribution width (RBC) [Ratio]16.8 %Critically high 11.0-15.0[facility] Main CampusComment on above:Performed By: #### CBC #### [facility] [address] [place] [address] Dr. Stan AcevesHematocrit (Bld) [Volume fraction]33.7 %Critically low36.0-48.0 The [facility] HospitalComment on above:Performed By: #### CBC #### [facility] [address] [place] [address] Dr. Stan AcevesHemoglobin (Bld) [Mass/Vol]10.6 g/dLCritically low12.0-16.0The [facility] HospitalComment on above:Performed By: #### CBC #### [facility] [address] [place] [address] Dr. Stan Jewell #0.03 10e3/ulNormal0.00-0.03The [facility] HospitalComment on above:Performed By: #### CBC #### [facility] [address] [place] [address] Dr. Stan Jewell %0.3 %Normal0.0-0.5The [facility] HospitalComment on above: Performed By: #### CBC #### [facility] [address] [place] [address] Dr. Stan BarrH #0.9 103/ulCritically low1.2-3.8The [facility] Comment on above:Performed By: #### CBC #### [facility] [address] [place] [address] Dr. Stan Jomphocytes/100 WBC (Bld)9.9 %Critically low20.5-60.0The [facility] HospitalComment on above:Performed By: #### CBC #### [facility] [address] [place] [address] Dr. Stan Ramsey DIFF REQNONormalThe [facility] HospitalComment on above: Performed By: #### CBC #### [facility] [address] [place] [address] Dr. Stan Garcia (RBC) [Entitic mass]25.7 pgCritically low26.7-34.0The [facility] HospitalComment on above:Performed By: #### CBC #### [facility] [address] [place] [address] Dr. Stan Garcia (RBC) [Mass/Vol]31.5 g/yZBkeslx69.9-35.2The [facility] HospitalComment on above:Performed By: #### CBC #### [facility] [address] [place] [address] Dr. Stan Garcia (RBC) [Entitic vol]81.6 zMEyjxvf63.0-99.0The [facility] HospitalComment on above:Performed By: #### CBC #### [facility] [address] [place] [address] Dr. Stan Izquierdo #0.7 103/ulNormal0.3-0.8The [facility] HospitalComment on above:Performed By: #### CBC #### [facility] [address] [place] [address] Dr. Stan Elkinsocytes/100 WBC (Bld)7.3 %Normal1.7-12.0[facility] Comment on above:Performed By: #### CBC #### [facility] [address] [place] [address] Dr. Stan Borden #7.4 103/ulCritically high1.4-6.5The [facility] Comment on above:Performed By: #### CBC #### [facility] [address] [place] [address] Dr. Stan Gilliamutrophils/100 WBC (Bld)80.8 %Critically high43.0-75.0The [facility] HospitalComment on above:Performed By: #### CBC #### [facility] [address] [place] [address] Dr. Stan AcevesPlatelet mean volume (Bld) [Entitic vol]8.2 fLCritically low 9.5-13.5The [facility] HospitalComtrinity health [facility] on above:Performed By: #### CBC #### [facility] [address] [place] [address] Dr. Stan AcevesPLT396 103/sqZoppqh926-966Npf [facility] HospitalComtrinity health [facility] on above: Performed By: #### CBC #### [facility] [address] [place] [address] Dr. Stan AcevesRBC4.13 106/ulCritically low4.20-5.40The [facility] on above:Performed By: #### CBC #### [facility] [address] [place] [address] Dr. Stan AcevesWBC9.2 103/ulNormal4.0-11.0The [facility] on above: Performed By: #### CBC #### [facility] [address] [place] [address] Dr. Stan AcevesGLYCOHEMOGLOBIN A1Con 27-53-3594FBG RECOMMENDATIONSEE BELOWNormMartins Ferry HospitalComtrinity health [facility] on above:Result Comment: ADA RECOMMENDED LIMIT 4.0 - 6.0 ADA THERAPEUTIC TARGET < 7.0 ACTION SUGGESTED > 7.0Performed By: #### A1C #### [facility] [address] [place] [address] Dr. Stan AcevesGlucose [Mass/Vol]126 mg/dLNormalThCorey Hospital on above:Performed By: #### A1C #### [facility] [address] [place] [address] Dr. Stan AcevesHbA1c (Bld) [Mass fraction]6.0 %Normal4.5-6.2The [facility] on above:Performed By: #### A1C #### [facility] [address] [place] [address] Dr. Stan Smith 10-21-3598Okpy [Mass/Vol]36.0 ug/dLCritically low 50.0-170.0The [facility] HospitalComment on above:Performed By: #### IRON #### [facility] [address] [address] [address] Stan Toribio, RAND URon 59-86-8331rGNT<1.3Normal<=30.0The [facility] HospitalComment on above:Performed By: #### MALBR #### [facility] [address] [address] [address] Stan Brown 14(COMP METB)on 76-45-6002Lfpwtov [Mass/Vol]3.5 g/dLNormal 3.4-5.0The [facility] HospitalComment on above:Performed By: #### T4, CMP, TSH #### [facility] [address] [place] [address] Dr. Stan AcevesAlbumin/Globulin [Mass ratio]1.0 {ratio}NormalThe [facility] HospitalComment on above:Performed By: #### T4, CMP, TSH #### [facility] [address] [place] [address] Dr. Stan Skaggs [Catalytic activity/Vol]105 U/DDfgghs69-089Axp [facility] Hospitalment on above:Performed By: #### T4, CMP, TSH #### [facility] [address] [place] [address] Dr. Stan Pastrana [Catalytic activity/Vol]20 U/VUurqlv65-57Chy [facility] Hospitalment on above:Performed By: #### T4, CMP, TSH #### [facility] [address] [place] [address] Dr. Stan Hernandez gap [Moles/Vol]12.1 mmol/LNormalThe [facility] on above:Performed By: #### T4, CMP, TSH #### [facility] [address] [place] [address] Dr. Stan Denise [Catalytic activity/Vol]14 U/LCritically tja87-57Oac [facility] HospitalComment on above:Performed By: #### T4, CMP, TSH #### [facility] [address] [place] [address] Dr. Stan AcevesBilirubin [Mass/Vol]0.3 mg/dLNormal0.2-1.0The [facility] Comment on above:Performed By: #### T4, CMP, TSH #### [facility] [address] [place] [address] Dr. Stan AcevesCalcium [Mass/Vol]9.1 mg/dLNormal8.5-10.1The [facility] Comment on above:Performed By: #### T4, CMP, TSH #### [facility] [address] [address] [address] Stan AcevesChloride [Moles/Vol]103 mmol/PDimlyj49-454Vti [facility] Comment on above:Performed By: #### T4, CMP, TSH #### [facility] [address] [place] [address] Dr. Stan AcevesCO2 [Moles/Vol]26.8 mmol/YOuxlvb92.0-32.0The [facility] Comment on above:Performed By: #### T4, CMP, TSH #### [facility] [address] [place] [address] Dr. Stan AcevesCreatinine [Mass/Vol]0.84 mg/dLNormal0.55-1.02The [facility] HospitalComment on above:Performed By: #### T4, CMP, TSH #### [facility] [address] [place] [address] Dr. Stan BuenoGFR-AF EMIRATI>60Normal>=60The [facility] HospitalComment on above:Performed By: #### T4, CMP, TSH #### [facility] [address] [place] [address] Dr. Stan BuenoGFR-NON AF EMIRATI>60Normal>=60The [facility] HospitalComment on above:Performed By: #### T4, CMP, TSH #### [facility] [address] [place] [address] Dr. Stan AcevesGlobulin (S) [Mass/Vol]3.6 g/dLNormalThe [facility] HospitalComment on above:Performed By: #### T4, CMP, TSH #### [facility] [address] [address] [address] Stan AcevesGlucose [Mass/Vol]84 mg/xSGgtrwy88-008EqeWayne Healthcare Main Campus Comment on above:Performed By: #### T4, CMP, TSH #### [facility] [address] [place] [address] Dr. Stan AcevesPotassium [Moles/Vol]3.9 mmol/LNormal3.5-5.1The [facility] Comment on above:Performed By: #### T4, CMP, TSH #### [facility] [address] [place] [address] Dr. Stan AcevesProtein [Mass/Vol]7.1 g/dLNormal6.4-8.2The [facility] Comment on above:Performed By: #### T4, CMP, TSH #### [facility] [address] [place] [address] Dr. Stan AcevesSodium [Moles/Vol]138 mmol/MCezfro397-323Qpu [facility] Comment on above:Performed By: #### T4, CMP, TSH #### [facility] [address] [place] [address] Dr. Stan AcevesUrea nitrogen [Mass/Vol]12.0 mg/dLNormal7.0-18.0[facility] CampusComment on above:Performed By: #### T4, CMP, TSH #### [facility] [address] [place] [address] Dr. Stan Golden nitrogen/Creatinine [Mass ratio]14.3 mg/mgNormalThe [facility] HospitalComment on above:Performed By: #### T4, CMP, TSH #### [facility] [address] [place] [address] Dr. Stan Shah4on 08-44-1231N2 [Mass/Vol]8.70 ug/dLNormal4.80-13.90The [facility] HospitalComment on above:Performed By: #### T4, CMP, TSH #### [facility] [address] [place] [address] Dr. Stan Aden 70-42-0198VLG8.209 uIU/mLNormal0.358-3.740The [facility] Hospitalment on above:Performed By: #### T4, CMP, TSH #### [facility] [address] [address] [address] Stan Menjivar BRAIN WO W CONon 05-00-6086OJI BRAIN WO W CONEXAMINATION: MRI BRAIN WO [...] Electronically authenticated by: PATRICK PIERRE Date: 2022-04-27 10:[address] [place], [place] [address]CREATININEon 03-43-3635Bpsslzwavz [Mass/Vol]0.91 mg/dLNormal 0.55-1.02The [facility] HospitalComment on above:Performed By: #### CREA #### [facility] [address] [address] [address] Pierce ChangEGFR-AF EMIRATI>60Normal>=60The [facility] HospitalComment on above:Performed By: #### CREA #### [facility] [address] [place], [place] [address] Dr. Pierce ChangEGFR-NON AF EMIRATI>60Normal>=60The [facility] HospitalComment on above:Performed By: #### CREA #### [facility] [address] [place], [place] [address] Dr. Stan Brody ABD/PELVIS WO W CONon 28-13-2108NCA ABD/PELVIS WO W CON EXAMINATION: CTA ABD/PELVIS [...] Electronically authenticated by: PATRICK PIERRE Date: 2022-04-08 10:04[facility] SystemEstablished Visit (Otol[facility]ology)on 84-17-4192Btghvfztwia Visit (Otolaryngology)Chief Complaintannual follow up acoustic neuroma [...] SNHL (sensorineural hearing loss) (389.16) (H90.5) Benign Primary Therapist nial Nerve Neoplasm Right acoustic neuroma (225.1) [...] MOUTH EVERY week --take 30 MINUTES beforeBREAKFAST;Therapy: 85Nwd8173 to Recorded Rx By: Zion; Dispense: 84 [...] TAKE 1 TABLET BY MOUTH DAILY ATBEDTIME;Therapy: 68Rkt9405 to Recorded Rx By: Zion; Dispense: 30 Days ; #:30; Refill: 0; ARIEL = N; Record; Last Updated By: Domenica Topete; 10/11/2017 1:16:16 PM Famotidine 20 MG Oral Tablet; TAKE 1 TABLET AT BEDTIME and TAKE 1 TABLET ASNEEDED during the day;Therapy: 44Lnx4420 to Recorded Rx By: Zion; Dispense: 30 Days ; #:60; Refill: 0; ARIEL = N; Record; Last Updated By: Domenica Topete; 10/11/2017 1:16:16 PM Fluticasone Propionate 50 MCG/ACT Nasal Suspension; INHALE 1 (ONE) SPRAY INEACH NOSTRIL EVERY DAY;Therapy: 78Lzn3833si Recorded Rx By: Chalo; Dispense: 30 Days ; #:16; Refill: 0; ARIEL = N; Record; Last Updated By: Domenica Topete; 10/11/2017 1:16:16 PM Lisinopril 20 MG Oral Tablet;Therapy: 05Uzi0775 to Recorded Rx By: GIANNA ISABEL; Dispense: 30 Days ; #:30; Refill: 0; ARIEL = N; Record; Last Updated By: Beverley Covarrubias; 09/16/2015 1:29:38 PM Meloxicam 7.5 MG Oral Tablet;Therapy: 85Hrs7599 to Recorded Rx By: GIANNA ISABEL; Dispense: [...] Kit; use to test BLOOD SUGAR DAILY;Therapy: 04Uxp7790 to Recorded Rx By: Chalo; Dispense: 1 Days ; #:1; R efill: 0; ARIEL = N; Record; Last Updated By: Domenica Topete; 10/11/2017 1:16:16 PM Mauro-Michael Automatic;Therapy: 65Xwn7552 to Recorded Dispense: 30 Days ; #:1; Refill: 0; ARIEL = N; Record; Last Updated By: Rachel Contreras; 10/10/2013 3:23:22 PM Diagnoses/Problems Acoustic neuroma (225.1) (D33.3) Orders MRI IAC w/wo Contrast; Status:Hold For - Scheduling,Retrospective By ProtocolAuthorization; Requested for:15Sep2020; Perform:[facility]; Due:14Dec2020; Last Updated By:Carole Lanier; 09/26/2018 3:48:32 PM;Ordered; For:Acoustic neuroma; Ordered By:Shane Wilkerson;Radiologist to Determine Optimal Study : YWhat are the patient's signs and symptoms? : s/p CPA lesion resection Signatures Electronically signed by : Shane Wilkerson MD; Sep 26 2018 4:29PM EST (Author)NormalUH Touchworks Vital Signs Date TimeVital SignValuePerforming LhgohxyxgMdavenly57-45-0392 13:29-0400Body higbkd021.02 [place] [employer] Work Phone: [phone] [place], [place] 254[address]10-30-2025 13:29-0400 Body ldzvjmovdoo19.1 [degF]La Pack [employer] Work Phone: [phone] [place], [place] 254[address]10-30-2025 13:29-0400 Diastolic blood mm[Hg]La Pack [employer] Work Phone: [facility]10-30-2025 13:29-0400 Heart rate69 /minLisa Dalehfariba [employer] Work Phone: [phone]-30-2025 13:29-0400 Respiratory rate18 /minLisa Dalehholz [employer] Work Phone: [phone] [place], [place] 254[address]10-30-2025 13:29-0400 SaO2% (BldA) [Mass fraction]99 %La Aichholz [employer] Work Phone: [phone])249-[address] [place], [place] 254[address]10-30-2025 13:29-0400 Systolic blood irvjikmm020 mm[Hg]La Aichholz [employer] Work Phone: [phone]10-09-2025 09:03-0400 Body veodzf497.02 cmLisa Aichholz [employer] Work Phone: [phone] [address]10-09-2025 09:03-0400 Body mass index (BMI) [Ratio]26.7 kg/m2Lisa Aichholz [employer] Work Phone: [phone] [address]10-09-2025 09:03-0400 Body qvhjqlsfpqi74.3 [degF]La Aichholz [employer] Work Phone: [phone]10-09-2025 09:03-0400 Body rvdhyj46.54 kgLisa Aichholz [employer] Work Phone: [phone])[address]10-09-2025 09:03-0400 Diastolic blood uklfgxne07 mm[Hg]La Aichholz [employer] Work Phone: [phone])624-[address] [place], [place] 2542710-09-2025 09:03-0400 Heart rate84 /minLisa Aichholz [employer] Work Phone: 1(322)488-[address] [place], [place] 2542710-09-2025 09:03-0400 Inhaled oxygen flow rate3 L/minLisa Aichholz [employer] Work Phone: [phone])373-[address] [place], [place] 2542710-09-2025 09:03-0400 Respiratory rate20 /minLisa Aichholz [employer] Work Phone: [phone])910-[address] [place], [place] 2542710-09-2025 09:03-0400 SaO2% (BldA) [Mass fraction]98 %La Aichholz [employer] Work Phone: [facility]10-09-2025 09:03-0400 Systolic blood ttyhznad20 mm[Hg]La Aichholz [employer] Work Phone: [facility]09-17-2025 11:02-0400 Body .02 cmLisa Aichholz [employer] Work Phone: [phone])254-[address] [place], [place] 254[address]09-17-2025 11:02-0400 Body aisgwwekrsg72.1 [degF]La Aichholz [employer] Work Phone: [phone]09-17-2025 11:02-0400 Diastolic blood sinomlkx36 mm[Hg]La Aichholz [employer] Work Phone: [phone]09-17-2025 11:02-0400 Heart rate92 /minLisa Aichholz [employer] Work Phone: 1(957)677-[address] [place], [place] 3896309-17-2025 11:02-0400 Inhaled oxygen flow rate3 L/minLisa Aichholz [employer] Work Phone: [facility]09-17-2025 11:02-0400 Respiratory rate18 /minLisa Aichholz [employer] Work Phone: [facility]09-17-2025 11:02-0400 SaO2% (BldA) [Mass fraction]95 %La Aichholz [employer] Work Phone: [facility]09-17-2025 11:02-0400 Systolic blood zrpvekbk17 mm[Hg]La Aichholz [employer] Work Phone: [facility]08-13-2025 10:26-0400 Body clrfbyeewot68.4 [degF]La Aichholz [employer] Work Phone: [phone] [place], [place] [address]Hzyclzgjrt73-34-7533 10:26-0400Diastolic blood clgigwrg38 mm[Hg]La Aichholz [employer] Work Phone: [facility] CenterOuakvscovf28-23-5831 10:26-0400Heart rate85 /min La Aichholz [employer] Work Phone: [address] [place] [address]Sevhgrmnwo29-69-2598 10:26-0400Respiratory rate20 /minLisa Aichholz [employer] Work Phone: [address] [address]Dddnunngxj27-35-7763 10:26-3025BpD0% (BldA) [Mass fraction]96 %La Aichholz [employer] Work Phone: [address] [address]Tfukvkiwro87-40-9011 10:26-0400Systolic blood tiyetihh034 mm[Hg]La Aichholz [employer] Work Phone: [facility] CenterQvnybfbkqt34-62-6912 10:08-0400Body mass index (BMI) [Ratio]25.05 kg/m2Lisa Aichholz [employer] Work Phone: [facility] CenterHapymxmmct78-41-5573 10:08-0400Body temperature 98.1 [degF]La Aichholz [employer] Work Phone: [facility] CenterOodgnmyqne64-27-6886 10:08-0400Body lsosxy80.14 kgLisa Aichholz [employer] Work Phone: [facility] CenterRtroitzvbi43-07-2827 10:08-0400Diastolic blood motkurct93 mm[Hg]La Aichholz [employer] Work Phone: [place] [address]Wqoluekmqm64-19-1818 10:08-0400Heart rate80 /min La Aichholz [employer] Work Phone: [place] [address]Rhrsxglowk83-60-6108 10:08-0400Respiratory rate20 /minLisa Aichholz [employer] Work Phone: [place] [address]Jkinmeegtm71-19-7076 10:08-2428JwJ4% (BldA) [Mass fraction]97 %La Aichholz [employer] Work Phone: [facility] HealthcareComment on above:with 3L of 02 on 02-06-2025 10:08-0400Systolic blood hvweyqwx051 mm[Hg]La Pack [employer] Work Phone: [facility] CenterTejuyfijei31-60-7651 11:44-0400Body zgsfim858 cm La Pack [employer] Work Phone: [facility] CenterKzfcuunslg86-15-8087 11:44-0400Body mass index (BMI) [Ratio]25.15 kg/m2La Martinezz [employer] Work Phone: [facility] CenterTsbioghtaw86-98-6162 11:44-0400Body temperature 97.81 [degF]La Pack [employer] Work Phone: [facility] CenterMfxqpbunoe09-85-6250 11:44-0400Body wygdqf11.41 kgLa Martinezz [employer] Work Phone: [facility] CenterUkcsmwevhj72-50-8999 11:44-0400Diastolic blood zhqbvqci90 mm[Hg]La Martinezz [employer] Work Phone: [facility] CenterKijbohzmwv86-14-0831 11:44-0400Heart rate98 /min La Pack [employer] Work Phone: [facility] CenterZlhwwugnbo07-46-1246 11:44-0400Respiratory rate24 /minLa Pack [employer] COUNSEL Work Phone: [place] [address]Oqztgkhfdl72-30-7748 11:44-7489HwM5% (BldA) [Mass fraction]97 %La Martinezz [employer]PUT[employer] COUNSEL Work Phone: [place] [address]Ujwlifpnkx29-92-1917 11:44-0400Systolic blood zjjxwsiv406 mm[Hg]La Martinezz [employer] Work Phone: [facility] CenterUhrzbycstv39-69-2109 09:30-0500Body xugfot860 cm Ian Soares MD Work Phone: [facility] CenterYxetroeoyn16-06-1525 09:30-0500Body mass index (BMI) [Ratio]25.15 kg/m2Ian Soares MD Work Phone: [facility] CenterPvffjmqihy53-94-4312 09:30-0500Body temperature 96.6 [degF]Ian Soares MD Work Phone: [facility] CenterCojrfbrggs48-80-5055 09:30-0500Body adhzvw54.41 kgIan Soares MD Work Phone: [facility] CenterEninlomhxr22-20-3396 09:30-0500Diastolic blood mqdrpahl28 mm[Hg]Ian Soares MD Work Phone: [facility] CenterAdelbrnthq21-76-0703 09:30-0500Heart rate85 /min Ian Soares MD Work Phone: [facility] CenterHqkwgsnzrp97-15-7396 09:30-0500Respiratory rate22 /minIan Soares MD Work Phone: [facility] CenterNndltzhfxn76-79-9001 09:30-4133CpI7% (BldA) [Mass fraction]97 %Ian Soares MD Work Phone: [facility] CenterGxzkmxqmri67-58-4938 09:30-0500Systolic blood wyxaeejx036 mm[Hg]Ian Soares MD Work Phone: [facility] CenterHmctptholo96-08-4430 09:09-0500Body .02 cmBrnelsy Cardoso [employer]PUT[employer] COUNSEL-C Work Phone: [phone])371-[address] [place], [place] 2542702-21-2025 09:09-0500 Body mass index (BMI) [Ratio]24.7 kg/y0Cncjvhnc Cardoso [employer]SEL-C Work Phone: [phone])183-[address] [place], [place] 2542702-21-2025 09:09-0500 Body runoca40.5 kgBrnelsy Cardoso [employer] COUNSEL-C Work Phone: [phone])547-[address] [place], [place] 2542702-21-2025 09:09-0500 Diastolic blood lahwcbog66 mm[Hg]Daniel Cardoso [employer]SEL-C Work Phone: [facility]02-21-2025 09:09-0500 Heart rate82 /minBrittany Cardoso [employer]SEL-C Work Phone: [facility]02-21-2025 09:09-0500 Inhaled oxygen flow rate3 L/minBrittany Cardoso [employer] COUNSEL-C Work Phone: [facility]02-21-2025 09:09-0500 Respiratory rate18 /minBrittany Cardoso [employer] COUNSEL-C Work Phone: [facility]02-21-2025 09:09-0500 SaO2% (BldA) [Mass fraction]97 %Daniel Cardoso [employer]-C Work Phone: [facility]02-21-2025 09:09-0500 Systolic blood ainwduzz167 mm[Hg]Daniel Silvazpatrick [employer]SEL-C Work Phone: [facility]02-18-2025 13:20-0500 Body xzxnizzjblz78.1 [degF]Stephen Furlong DO Work Phone: [facility]02-18-2025 13:20-0500Diastolic blood ygcyzogs30 mm[Hg]Stephen Furlong DO Work Phone: [facility] [employer] Wfxxtb35-85-4664 13:20-0500Heart rate 73 /minDennis Furlong DO Work Phone: [facility] [employer] Nlgzzd62-09-8377 13:20-0500 Respiratory rate16 /minDennis Furlong DO Work Phone: [facility]02-18-2025 13:20-2873TbF8% (BldA) [Mass fraction]96 %Stephen Furlong DO Work Phone: [facility]02-18-2025 13:20-0500Systolic blood acklygin545 mm[Hg]Stephen Jassolong DO Work Phone: [facility]02-14-2025 14:56-0500Body apdcvyuazaq71.2 [degF]Stephen Jassolong DO Work Phone: [facility]02-14-2025 14:56-0500Diastolic blood cvtowjte90 mm[Hg]Stephenifrah Jassolong DO Work Phone: [facility]02-14-2025 14:56-0500Heart rate 79 /Alyis Romerolong DO Work Phone: [facility]02-14-2025 14:56-0500 Respiratory rate18 /Alyis Romerolong DO Work Phone: [facility]02-14-2025 14:56-7626RfI1% (BldA) [Mass fraction]96 %Stephen Jassolong DO Work Phone: [facility]02-14-2025 14:56-0500Systolic blood wuftbtdx775 mm[Hg]Stephen Jassolong DO Work Phone: [facility] Xjyoyk49-12-3462 17:23-0500Body mass index (BMI) [Ratio]24.03 kg/w7Tchcfb Furlong DO Work Phone: [facility]02-11-2025 17:23-0500Body kphmvxtxvea70.9 [degF]Stephen Jassolong DO Work Phone: [facility]02-11-2025 17:23-0500Body .5 kgDenifrah Jassolong DO Work Phone: [facility]02-11-2025 17:23-0500Diastolic blood izqdpnce97 mm[Hg]Stephen Jassolong DO Work Phone: [facility]02-11-2025 17:23-0500Heart rate 94 /minDennis Furlong DO Work Phone: [facility] Arsbgf11-47-9509 17:23-0500 Respiratory rate18 /minDennis Furlong DO Work Phone: [facility] Sbynlc33-36-1962 17:23-9819JaG6% (BldA) [Mass fraction]93 %Stephen Furlong DO Work Phone: [facility] Ppjcqt60-79-9501 17:23-0500Systolic blood mm[Hg]Stephen Furlong DO Work Phone: [facility] HospitalTargAnox02-04-2025 19:16-0500Body .6 cmDennis Furlong DO Work Phone: [facility] Chzhlv87-34-3250 19:16-0500Body vmtulojrbxf09.81 [degF]Stephen Furlong DO Work Phone: [facility] [employer] Xpqmei51-58-8778 19:16-0500Diastolic blood wcfueslf98 mm[Hg]Stephen Furlong DO Work Phone: [facility] HospitalTargAnox02-04-2025 19:16-0500Heart rate 82 /minDennis Furlong DO Work Phone: [facility] Gzcvgu38-67-9821 19:16-0500 Respiratory rate18 /minDennis Furlong DO Work Phone: [facility] Gqfdum52-50-9653 19:16-0700DkI7% (BldA) [Mass fraction]92 %Stephen Furlong DO Work Phone: [facility] Xiozxx06-97-4033 19:16-0500Systolic blood asrwlgcr898 mm[Hg]Stephen Furlong DO Work Phone: [facility] Dquept01-18-9464 14:05-0500Heart rate 91 /Geo Cardoso [employer]SEL-C Work Phone: 1(419)547-[address] [place], [place] 2542701-31-2025 14:05-0500 Respiratory rate18 /minBrittany Cardoso [employer]SEL-C Work Phone: 1([phone])[address]01-31-2025 09:25-0500 Body ogmicphscqy75.5 [degF]Daniel Cardoso [employer]SEL-C Work Phone: [phone]01-31-2025 09:25-0500 Diastolic blood goaqacap89 mm[Hg]Daniel Cardoso [employer]SEL-C Work Phone: [phone] [address]01-31-2025 09:25-0500 Inhaled oxygen flow rate4 L/minBrittany Cardoso [employer] COUNSEL-C Work Phone: [phone])[address]01-31-2025 09:25-0500 SaO2% (BldA) [Mass fraction]90 %Daniel Cardoso [employer]SEL-C Work Phone: [phone])[address]01-31-2025 09:25-0500 Systolic blood smirsrzb122 mm[Hg]Daniel Cardoso [employer] COUNSEL-C Work Phone: [phone])[address]01-31-2025 06:00-0500 Body sjhowy56.3 kgBrittany Cardoso [employer] COUNSEL-C Work Phone: [phone])[address]01-30-2025 17:05-0500 Body hdylba203.56 cmBrittany Cardoso [employer]PUT[employer] COUNSEL-C Work Phone: 1(857)103-[address] [place], [place] 254[address]01-28-2025 12:00-0500 Inhaled oxygen vxowwucxnsprj65 %Daniel Cardoso [employer]SEL-C Work Phone: [phone])[address]11-07-2024 09:43-0500 Body vmooyq126 cmBrittany Cardoso [employer] COUNSEL Work Phone: [facility] CenterQawtvxxnnd09-11-8406 09:43-0500Body mass index (BMI) [Ratio]24.13 kg/x3GhbhqijlDaniel Staffordk [employer] COUNSEL Work Phone: [facility] CenterYqcyddyszs43-12-2176 09:43-0500Body temperature 96.69 [degF]Daniel Cardoso [employer] COUNSEL Work Phone: [facility] CenterGienwdybrp46-46-0972 09:43-0500Body maqhao45.78 kgDaniel Staffordk [employer]SEL Work Phone: [facility] CenterAgmeaixvqy04-96-9217 09:43-0500Diastolic blood vynwjzvm81 mm[Hg]Daniel Staffordk [employer] COUNSEL Work Phone: noCox NorthJdbgccjuna18-14-6500 09:43-0500Heart rate85 /min Daniel Staffordk [employer] COUNSEL Work Phone: [facility] CenterKwdrumkaqj89-65-9079 09:43-0500Respiratory rate18 /minDaniel Staffordk [employer] COUNSEL Work Phone: [facility] CenterJabjwpwtdm96-95-3025 09:43-2965BqZ4% (BldA) [Mass fraction]94 %Daniel Staffordk [employer] COUNSEL Work Phone: noCox NorthSknqqagehc89-41-5078 09:43-0500Systolic blood tjerqvio846 mm[Hg]Daniel Staffordk [employer]SEL Work Phone: [facility] Encounters Encounter DateEncounter TypeCare ProviderFacilityStart: 09-12-2025 End: 89-67-2716jeoaozaiarWoxy J Aichholz NP-C Work Phone: [facility] ClydeStart: 09-12-2025 End: 13-76-7914Lnojlyj encounter procedureLisa Heath Pack [employer] COUNSEL-C-[facility] Work Phone: Start: 06-82-4354Vwl-patient / Non-visitLisa Heath Pack NP-C-[facility] Work Phone: Start: 08-22-2025 End: 02-33-1111mnvfmaslhpCxxe Heath Crossfariba [employer] COUNSEL-C Work Phone: [facility] Work Phone: Start: 08-22-2025 End: 82-10-8532Bednlof encounter procedureLisa Heath Pack [employer] [place] [employer]SEL-C-[facility] Work Phone: Start: 81-41-2969Sme-patient / Non-visitLisa Heath Pack [employer]SEL-C-[facility] Work Phone: Start: 07-31-2025 End: 30-72-4940khnwrvepmkDjnz J Americafariba [employer] COUNSEL-C Work Phone: [facility] Work Phone: Start: 07-31-2025 End: 92-70-2141Hxrblod encounter procedureLisa Heath Huntercarmenfariba [employer] [place] [employer]SEL-C-[facility] Work Phone: Start: 95-38-7445Vqsyjsc encounter procedureLi Ramone [employer] [place] COUNSEL-C Work Phone: [facility] 07-10-2025 End: 92-70-5841Dzgycjwhw Result EncounterLisa Dalehholz [employer]SEL Work Phone: [facility] External Department UnsolicitedStart: 07-10-2025 End: 70-30-2576Sboiprejv Result EncounterLisa Dalehholz [employer]SEL Work Phone: [facility] External Department UnsolicitedStart: 06-26-2025 End: 41-60-4202Xvltln flowsheetLisa Dalehholz [employer]SEL Work Phone: [facility] CWM FMStart: 06-26-2025 End: 74-91-1425Gnsytk flowsheetLisa Dalehholz [employer] COUNSEL Work Phone: [facility] CWM FMStart: 06-26-2025 End: 70-09-4683Vtfsae outpatient visit 25 minutesLisa Hunterhholz [employer] [place] COUNSEL Work Phone: [facility] CWM FMComment on above:Edema of both lower legs (Primary Dx); Primary hypertension ; Chronic obstructive pulmonary disease, unspecified COPD type ([facility]); Type 2 diabetes mellitus without complication, without long-term current use of insulin ([facility]); Cigarette nicotine dependence without complication; Depression, unspecified ; Generalized anxiety disorder ; Cellulitis of left lower extremityStart: 06-26-2025 End: 82-32-6403djrsmrgsvdIZJD AICHHOLZNot AvailableStart: 06-13-2025 End: 69-81-7350Oedwuo OnlyLa Pack [employer] COUNSEL Work Phone: [facility] CWM FMComment on above:Iron deficiency (Primary Dx); Abnormal CBCStart: 06-07-2025 End: 01-31-7083HizpuyYmpf Naderer MD Work Phone: [facility] CWM FMComment on above:Chronic obstructive pulmonary disease, unspecified COPD type ([facility])Start: 06-05-2025 End: 95-78-0632ExablzRmpk Aichholz [employer] [place] [employer]SEL Work Phone: [facility] CWM FMComment on above:Primary hypertension (Primary Dx); Hyperlipidemia, unspecified ; Vitamin D deficiency; Type 2 diabetes mellitus without complications ([facility]); Gastro-esophageal reflux disease without esophagitis; Depression, unspecifiedStart: 05-06-2025 End: 91-80-1455JzbzrfYurf Aichholz [employer]SEL Work Phone: [facility] CWM FMComment on above:Asthma with COPD (chronic obstructive pulmonary disease) ([facility])Start: 10-86-7633Rsgyvvr encounter procedure La Pack [employer] COUNSEL Work Phone: [facility] HealthcareStart: 04-01-2025 End: 32-60-4194EzvevhLdia Aichholz [employer] COUNSEL Work Phone: [facility] CWM FMComment on above:Depression, unspecified ([facility]/HCC)Osteoarthritis, unspecified osteoarthritis type, unspecified site (Primary Dx)Start: 03-25-2025 End: 73-74-9637Tcfbvhfcl Result EncounterLisa Aichholz [employer] Work Phone: [facility] External Department UnsolicitedStart: 03-25-2025 End: 37-93-7426Pageesomz Result EncounterLisa Aichholz [employer] Work Phone: [facility] External Department UnsolicitedStart: 03-25-2025 End: 90-76-4668Altgym OnlyLisa Dalehholz [employer]SEL Work Phone: [facility] CWM FMComment on above:Acquired hypothyroidism (CMS/HCC) (Primary Dx)Start: 02-25-2025 End: 46-35-3531LjncewKnzn Naderer MD Work Phone: [facility] CWM FMComment on above:Asthma with COPD (chronic obstructive pulmonary disease) (CMS/HCC); Chronic obstructive pulmonary disease, unspecified COPD type (CMS/HCC)Start: 02-21-2025 End: 08-87-2920Udbwesojd Result EncounterGeneric External Data ProviderNOMS External Department UnsolicitedStart: 02-21-2025 End: 12-54-0723Dydymtsql Result EncounterGeneric External Data ProviderNOMS External Department UnsolicitedStart: 02-20-2025 End: 70-51-8120XdhyekMcmr Aichholz [employer] Work Phone: [facility] CWM FMComment on above:Iron deficiency anemia due to chronic blood lossStart: 02-19-2025 End: 80-23-3434Grgoci OnlyLisa Dalehholz [employer] Work Phone: [facility] CWM FMComment on above:Elevated TSHStart: 02-18-2025 End: 66-29-2765Ecmatymns Result EncounterLisa Aichholz [employer] Work Phone: [facility] External Department UnsolicitedStart: 02-18-2025 End: 82-57-0258Nponwqxva Result EncounterLisa Aichholz [employer] Work Phone: [facility] External Department UnsolicitedStart: 02-06-2025 End: 10-00-2398Urregz outpatient visit 25 minutesLisa Pack [employer]SEL Work Phone: noMS CWM FMComment on above:Type [...] Acute hypoxic respiratory failure (CMS/HCC)Start: 02-06-2025 End: 45-18-8994vrlyhmehkkAAMO DALEHHOLZNot AvailableStart: 01-23-2025 End: 26-98-1055Ixzwkh outpatient visit 25 minutesLisa Pack [employer]SEL Work Phone: [facility] CWM FMComment on above:Scalp laceration, sequela (Primary Dx); Cigarette nicotine dependence without complication; COPD exacerbation (CMS/HCC)Start: 01-23-2025 End: 89-96-8826wvekdpkyiyIVJQ DALEHHOLZNot AvailableStart: 01-14-2025 End: 46-23-1087Lpjswmyanelis Soares MD Work Phone: [facility] CWM FMStart: 01-14-2025 End: 91-32-1062Urnwjkbeth Soares MD Work Phone: [facility] CWM FMStart: 01-14-2025 End: 72-80-0426Skrbqrzsxuwb care manage srvc 14 day dischargeIan Soares MD Work Phone: [facility] CWM FMComment on above:Influenza A (Primary Dx); Chronic obstructive pulmonary disease, unspecified COPD type (CMS/HCC); Acute hypoxic respiratory failure (CMS/HCC); Type 2 diabetes mellitus without complication, without long-term current use of insulin (CMS/HCC); Primary hypertension (CMS/HCC); Benign neoplasm of cranial nerves (CMS/HCC); Type 2 diabetes mellitus with diabetic polyneuropathy ([facility]/HCC)Start: 01-14-2025 End: 60-27-5870bidgntkmfdSRWW ANGLERNot AvailableStart: 01-04-2025 End: 87-62-3817ufpbpaikwuCujrffts Fer Cardoso [employer] [place] [employer]-C Work Phone: [facility] Work Phone: Start: 01-04-2025 End: 56-67-6905Qsnqept encounter procedureDaniel Cardoso [employer] [place] [employer]SEL-C Work Phone: [facility] Work Phone: Start: 01-01-2025 End: 36-79-6757wxycxanmogHuabog G Furlong DO Work Phone: [facility] - Family MedicineComment on above:Acute hypoxic respiratory failure ([facility]) (Primary Dx); Aspiration pneumonia, unspecified aspiration pneumonia type, unspecified laterality, unspecified part of lung ([facility]); Chronic obstructive pulmonary disease, unspecified COPD type ([facility]); Influenza A; Type 2 diabetes mellitus without complication, without long-term current use of insulin ([facility]); Other abnormalities of gait and mobility; AnxietyStart: 12-28-2024 End: 76-65-8933zinqanvphrTwzcwq Elfego Macias DO Work Phone: [facility] - Family MedicineComment on above:Acute hypoxic respiratory failure ([facility]) (Primary Dx); Chronic obstructive pulmonary disease, unspecified COPD type ([facility]); Influenza A; Other abnormalities of gait and mobilityStart: 12-25-2024 End: 21-71-7975insngmlravLnfght Elfego Jassolong DO Work Phone: [facility] Internal Medicine - Family MedicineComment on above:Chronic obstructive pulmonary disease, unspecified COPD type ([facility]) (Primary Dx); Influenza A; Other abnormalities of gait and mobility; Anxiety; Cigarette smokerStart: 12-18-2024 End: 58-59-2890trgzubjrokZerpop G Romerolong DO Work Phone: [facility] - Family MedicineComment on above:Acute hypoxic respiratory failure ([facility]) (Primary Dx); Chronic obstructive pulmonary disease, unspecified COPD type ([facility]); Influenza A; Aspiration pneumonia, unspecified aspiration pneumonia type, unspecified laterality, unspecified part of lung ([facility]); Depression, unspecified depression type; Cigarette smoker; Type 2 diabetes mellitus without complication, without long-term current use of insulin ([facility]); AnxietyStart: 12-67-4929Afc-patient / Non-visitBrittany Cardoso [employer] [place] [employer]-C Work Phone: [facility] Work Phone: Start: 72-28-8040Sup-patient / Non-visitBrittany Cardoso [employer] [place] [employer]SEL-C Work Phone: [facility] Work Phone: Start: 06-48-3705Kdf-patient / Non-visitBrittany Cardoso [employer] [place] [employer]-C Work Phone: [facility] Work Phone: Start: 36-32-8797Haf-patient / Non-visitBrittany Cardoso [employer] [place] COUNSEL-C Work Phone: [facility] Work Phone: Start: 12-09-2024 End: 45-06-4880Hspjjdsxnr and management of inpatientBrittany Cardoso [employer] [place] [employer]SEL-C Work Phone: [facility] [place] [facility] Work Phone: Start: 12-09-2024 End: 42-51-2119kknupaoqucWNZJUAV PROVIDERFacility:METROHealthStart: 12-09-2024 End: 58-40-1898Qbmikdxtq Result EncounterGeneric External Data ProviderNOMS External Department UnsolicitedStart: 12-09-2024 End: 39-74-4121Iejvkplil Result EncounterGeneric External Data ProviderNOMS External Department UnsolicitedStart: 12-06-2024 End: 55-44-6819PsqxrmWnyq Howard MANOMS CWM FMComment on above:Iron deficiency anemia due to chronic blood lossStart: 11-27-2024 End: 75-43-2874QigqjrCzdq Wayne VASQUEZ CWM FMComment on above:Asthma with COPD (chronic obstructive pulmonary disease) ([facility])Start: 11-12-2024 End: 96-00-7362OizhnaKwzewser Cardoso [employer]SEL Work Phone: [facility] CWM FMComment on above:Iron deficiency anemia due to chronic blood lossStart: 10-22-2024 End: 70-65-3217HuqtwmBqulwico Cardoso [employer] [place] [employer]SEL Work Phone: [facility] CWM FMComment on above:Gastro-esophageal reflux disease without esophagitisStart: 10-22-2024 End: 17-45-7553WrbbbeVwmcbnnt Cardoso [employer] [place] [employer]SEL Work Phone: [facility] CWM FMComment on above:Depression, unspecified ([facility])Start: 09-20-2024 End: 54-58-7547Upkalr flowsheetBrittany Cardoso [employer] [place] COUNSEL Work Phone: NOQS CWM FMStart: 09-20-2024 End: 87-36-6799Fvsknk flowsheetBrittany Cardoso [employer]SEL Work Phone: [facility] CWM FMStart: 09-20-2024 End: 62-68-5909Qsuopz outpatient visit 15 minutesBrittany Cardoso [employer] [place] COUNSEL Work Phone: [facility] CWM FMComment on above:Primary hypertension ([facility]) (Primary Dx); Type 2 diabetes mellitus without complication, without long-term current use of insulin ([facility]); Other hyperlipidemia ([facility]); Asthma with COPD (chronic obstructive pulmonary disease) ([facility]); Non-recurrent acute serous otitis media of left earStart: 09-20-2024 End: 86-05-9269puexghwcatSFSBCIWQAna Paula Carroll AvailableStart: 09-11-2024 End: 36-51-1902PexgjrCxzkpsckConchis Cardoso [employer] Work Phone: [facility] CWM FMComment on above:Type 2 diabetes mellitus without complications (CMS/HCC)Hyperlipidemia, unspecified (CMS/HCC)Other bursitis of elbow, left elbowStart: 09-03-2024 End: 89-93-1455XjbcvzKggfmph EllykinsNOMS CWM FMComment on above:Asthma with COPD (chronic obstructive pulmonary disease) (CMS/HCC)Start: 08-27-2024 End: 39-86-3616KgosghArvmdjlyConchis Cardoso [employer] [place] [employer]SEL Work Phone: [facility] CWM FMComment on above:Asthma with COPD (chronic obstructive pulmonary disease) (CMS/HCC)Start: 08-01-2024 End: 88-78-0108XexbujZexged Chanel MANOMS CWM IMComment on above:Hyperlipidemia, unspecified (CMS/HCC); Other bursitis of elbow, left elbow; Depression, unspecified (CMS/HCC); Type 2 diabetes mellitus without complications (CMS/HCC)Start: 07-25-2024 End: 51-66-4687YsuxbiOepoan Chanel MANOMS CWM IMComment on above:Other bursitis of elbow, left elbowStart: 07-23-2024 End: 01-56-9473OprkunXbeplnhxConchis Cardoso [employer] [place] [employer]SEL Work Phone: [facility] CWM FMComment on above:Type 2 diabetes mellitus without complications (CMS/HCC); Hyperlipidemia, unspecified (CMS/HCC)Start: 07-07-2024 End: 67-80-8026Npirxmani Cardoso [employer] [place] [employer] Work Phone: [facility] CWM FMComment on above:Iron deficiency anemia due to chronic blood loss (Primary Dx)Start: 01-16-2024 End: 60-43-9861Oqbhpkbamcriselda Sánchez MD Work Phone: [facility] External Department UnsolicitedStart: 01-16-2024 End: 54-13-3444Ogyyxrvwt Result EncounterSservando Sánchez MD Work Phone: [facility] External Department UnsolicitedStart: 12-15-2023 End: 13-65-3790ctaqoprxoeXkwnyue LiamFacility:FTMCStart: 12-15-2023 End: 33-45-1263Xoxssqi encounter procedureZamzam [facility] Start: 12-12-2023 End: 57-81-2414Lwbzazaiz Result EncounterSservando Sánchez MD Work Phone: [facility] External Department UnsolicitedStart: 12-12-2023 End: 89-07-6319Qoptlivvt Result EncounterSservando Sánchez MD Work Phone: [facility] External Department UnsolicitedStart: 11-30-2023 End: 16-75-8525sarjbjvpueIamzcrw LiamFacility:FTMCStart: 10-28-2023 End: 94-94-8822Hrz-admission assessmentZamzam Wheeler [facility] Start: 01-05-2023 End: 37-54-8955cyoqahvomlKM GIANNA TARA AMBURNFacility:V6Uzjuo: 04-26-2022 End: 69-72-6203bcfpeyugxuTN GIANNA TARA AMBURNFacility:U9Tplhu: 04-08-2022 End: 91-88-2827bzsbehhgdjNU GIANNA TARA AMBURNFacility:H1 Procedures DateProcedureProcedure DetailPerforming ClinicianStart: 22-51-9111JCR CBC WITH AUTO DIFFLisa Aicrosalee [employer] Work Phone: Start: 73-36-6246OCK THYROID STIM HORMONELisa Ramone [employer] [place] [employer] Work Phone: start: 84-66-8020RLC THYROXINE (T4) FREELa Pack [employer] Work Phone: Start: 04-99-2964OW ORLY PERF SPECT REST STRGeneric External Data ProviderStart: 90-75-5684NK TOMOSYNTHESIS SCREENING BILisa Ramone [employer] [place] [employer] Work Phone: [phone]: 28-04-9319ZCX CBC WITH AUTO DIFFLisa Ramone [employer] [place] [employer] Work Phone: [phone]: 59-17-9429QbftlqbivavEkuv Ramone [employer] Work Phone: Start: 96-42-9501Pesoi chest X-rayBrittany Cardoso [employer] Work Phone: Start: 82-47-7404Iytgv chest X-rayBrittany Cardoso [employer] Work Phone: Start: 38-65-7732Usouo X-ray abdomenBrittany Cardoso [employer] Work Phone: Start: 68-46-9312Ohvup chest X-rayBrittany Cardoso [employer] Work Phone: Start: 47-63-3451EAMBD CULTURE 2Generic External Data ProviderStart: 93-53-0371Zvtfxnm microbial cultureBrittany Cardoso [employer] Work Phone: Start: 35-06-8375Vnaqacpd identified in Blood by CultureBrittany Cardoso [employer] Work Phone: Start: 53-86-9684Ytyx stain microscopyBrittany Cardoso [employer] Work Phone: Start: 26-96-1984Zoovizgbmb glycosylated c8pHohkqnwf Cardoso [employer] Work Phone: Start: 28-23-3548KP TOMOSYNTHESIS SCREENING Rosalina Sánchez MD Work Phone: Start: 45-13-9220JftedgoqjrrWyletgxn Walker GARZA Work Phone: Start: 54-60-0685NI PULMONARY FUNCTION TESTSservando Sánchez MD Work Phone: Plan of Treatment DateCare ActivityDetailAuthorStart: 33-62-8753Ahipsudf screeningDiabetes: Retinopathy ScreeningNOPR HealthcareStart: 06-25-2026Medicare Annual Wellness (AWV)Medicare Annual Wellness (AWV)[facility] HealthcareStart: 62-88-5972Ppbqtvnpu for malignant neoplasm of breastMammogramNOMS HealthcareStart: 46-87-6120Tgjyc screening for proteinDiabetes: Urine Protein ScreeningNOPR HealthcareStart: 82-49-9926Ujfcaxupa for malignant neoplasm of colonNOMS HealthcareStart: 96-39-7786Edsjwof referralCommunity Regional Medical Center Work Phone: Start: 64-62-5922Chpcesmjux A1c measurementDiabetes: Hemoglobin D3IMLDX HealthcareStart: 07-31-2025 End: 00-36-3306Jqjkfqh encounter isjkwatyh63/17/2025 11:00 AM EDT Office Visit [facility] [address] [place] [address] La Pack NP [address] [place] [address] [facility] FMStart: 37-73-9843JZDPO-19 Vaccine ( season)COVID-19 Vaccine ( season)[facility] HealthcareStart: 07-15-2025 Influenza vaccinationNOPR HealthcareStart: 06-26-2025 End: 55-11-8969Rjxik metabolic 1998 panel - Serum or PlasmaBasic metabolic panel Lab Routine Primary hypertension Type 2 diabetes mellitus without complication, without long-term current use of insulin (HCC) Edema of both lower legs Expected: 06/26/2025 (Approximate), Expires: 06/26/2026[facility] Work Phone: Comment on above:Expected: 06/26/2025 (Approximate), Expires: 06/26/2026Start: 06-26-2025 End: 00-98-6186Hcogoht encounter procedureNOMS [facility] FMComment on above:Primary hypertension (Primary Dx); Chronic obstructive pulmonary disease, unspecified COPD type (HCC); Type 2 diabetes mellitus without complication, without long-term current use of insulin (HCC); Cigarette nicotine dependence without complicationStart: 29-97-9121Vacgqqhmp vaccinationInfluenza Vaccine (#1)[facility] HealthcareComment on above:Postponed from 07/15/2024 (Patient Refused)Start: 05-07-2025 End: 66-10-4867Ifeiixl encounter dcuuvyvsi74/24/2025 10:00 AM EDT Office Visit [facility] [address] [place] [address] La Pack NP [address] [place] [address] [facility] FMStart: 04-16-2025 End: 95-86-3927Lctazxv encounter procedureNOMS [facility] FMStart: 03-25-2025 End: 66-24-8050Xraxdqtwvty [Units/volume] in Serum or PlasmaTSH Lab Routine Acquired hypothyroidism (CMS/HCC) Expected: 03/25/2025 (Approximate), Expires: 03/25/2026[facility] Work Phone: Comment on above:Expected: 03/25/2025 (Approximate), Expires: 03/25/2026Start: 03-25-2025 End: 50-64-3466Yfbcqxbtp (T4) free [Mass/volume] in Serum or PlasmaT4, free Lab Routine Acquired hypothyroidism (CMS/HCC) Expected: 03/25/2025 (Approximate), Expires:03/25/2026NOPR HealthcareComment on above:Expected: 03/25/2025 (Approximate), Expires: 03/25/2026Start: 03-22-2025 End: 68-65-7405EUZ W Auto Differential panel - BloodCBC and differential Lab Routine Iron deficiency anemia due to chronic blood loss Expected: 03/22/2025 (Approximate), Expires: 02/20/2026[facility] HealthcareComment on above:Expected: 03/22/2025 (Approximate), Expires: 02/20/2026Start: 03-22-2025 End: 00-75-9752Tgqg and Iron binding capacity panel - Serum or PlasmaIron level Lab Routine Iron deficiency anemia due to chronic blood loss Expected: 03/22/2025 (Approximate), Expires: 02/20/2026[facility] Work Phone: Comment on above:Expected: 03/22/2025 (Approximate), Expires: 02/20/2026Start: 03-21-2025 End: 95-84-2889Exvdrdhierm [Units/volume] in Serum or PlasmaTSH Lab Routine Elevated TSH Expected: 03/21/2025 (Approximate), Expires: 02/19/2026[facility] Healthcare Work Phone: Comment on above:Expected: 03/21/2025 (Approximate), Expires: 02/19/2026Start: 03-21-2025 End: 35-97-1121Dfpocfkwd (T4) free [Mass/volume] in Serum or PlasmaT4, free Lab Routine Elevated TSH Expected: 03/21/2025 (Approximate), Expires: 02/19/2026[facility] HealthcareComment on above:Expected: 03/21/2025 (Approximate), Expires: 02/19/2026Start: 76-91-4492Ijyuikajqc A1c measurementDiabetes: Hemoglobin A1C [facility] HealthcareStart: 54-05-7827Dtvspsyf screeningDiabetes: Retinopathy ScreeningASHLEY REGIONAL [facility] HealthcareStart: 04-25-2025Medicare Annual Wellness (AWV)Medicare Annual Wellness (AWV)[facility] HealthcareStart: 02-06-2025 End: 299673-jpdkgejjadxeqr D3 [Mass/volume] in Serum or PlasmaVitamin D 25 hydroxy Lab Routine Vitamin D deficiency Expected: 02/06/2025 (Approximate), Expires: 02/06/2026[facility] HealthcareComment on above:Expected: 02/06/2025 (Approximate), Expires: 02/06/2026Start: 02-06-2025 End: 70-98-9228BRW W Auto Differential panel - BloodCBC and differential Lab Routine Iron deficiency anemia due to chronic blood loss Expected: 02/06/2025 (Approximate), Expires: 02/06/2026[facility] HealthcareComment on above:Expected: 02/06/2025 (Approximate), Expires: 02/06/2026Start: 02-06-2025 End: 52-73-3912Rkbxivuvkcotr metabolic 2000 panel - Serum or PlasmaComprehensive metabolic panel Lab Routine Primary hypertension (CMS/HCC) Type 2 diabetes mellitus without complication, without long-term current use of insulin (CMS/HCC) Expected: 02/06/2025 (Approximate), Expires: 02/06/2026[facility] Healthcare Comment on above:Expected: 02/06/2025 (Approximate), Expires: 02/06/2026Start: 02-06-2025 End: 75-61-0720Hpvpscke [Mass/volume] in Serum or PlasmaFerritin Lab Routine Iron deficiency anemia due to chronic blood loss Expected: 02/06/2025 (Approxim ate), Expires: 02/06/2026[facility] HealthcareComment on above:Expected: 02/06/2025 (Approximate), Expires: 02/06/2026Start: 02-06-2025 End: 88-02-3681Gjatvandea A1c/Hemoglobin.total in BloodHemoglobin A1c Lab Routine Type 2 diabetes mellitus without complication, without long-term current use of insulin (CMS/HCC) Expected: 02/06/2025 (Approximate), Expires: 02/06/2026 [facility] HealthcareComment on above:Expected: 02/06/2025 (Approximate), Expires: 02/06/2026Start: 02-06-2025 End: 79-37-7887Fbxz + transferrin + TIBCIron + transferrin + TIBC Lab Routine Iron deficiency anemia due to chronic blood loss Expected: 02/06/2025 (Approximate), Expires: 02/06/2026[facility] HealthcareComment on above:Expected: 02/06/2025 (Approximate), Expires: 02/06/2026Start: 02-06-2025 End: 34-50-8441Powqj 1996 panel - Serum or PlasmaLipid panel Lab Routine Other hyperlipidemia ([facility]/HCC) Expected: 02/06/2025 (Approximate), Expires:02/06/2026 [facility] HealthcareComment on above:Expected: 02/06/2025 (Approximate), Expires: 02/06/2026Start: 02-06-2025 End: 91-27-1104UB Breast - bilateral ScreeningBilateral screening mammogram Imaging Routine Screening mammogram, encounter for Expected: 02/06/2025 (Approximate), Expires: 04/08/2026[facility] Healthcare Work Phone: Comment on above:Expected: 02/06/2025 (Approximate), Expires: 04/08/2026Start: 02-06-2025 End: 59-75-1276Pqbzuqgwtkqb/Creatinine panel in random UrineMicroalbumin / creatinine, urine ratio Lab Routine Primary hypertension ([facility]) Type 2 diabetes mellitus without complication, without long-term current use of insulin ([facility]) Expected: 02/06/2025 (Approximate), Expires: 02/06/2026[facility] HealthcareComment on above:Expected: 02/06/2025 (Approximate), Expires: 02/06/2026Start: 02-06-2025 End: 35-59-2007Jqikylvuljw [Units/volume] in Serum or PlasmaTSH Lab Routine Generalized anxiety disorder ([facility]) Expected: 02/06/2025 (Approximate), Expires:02/06/2026[facility] HealthcareComment on above:Expected: 02/06/2025 (Approximate), Expires: 02/06/2026Start: 02-06-2025 End: 89-26-3780Njbnuovaxh complete panel - UrineUrinalysis with reflex microscopic (clean catch) Lab Routine Primary hypertension ([facility]/HCC) Type 2 d iabetes mellitus without complication, without long-term current use of insulin ([facility]/HCC) Expected:02/06/2025 (Approximate), Expires: 02/06/2026[facility] Healthcare Comment on above:Expected: 02/06/2025 (Approximate), Expires: 02/06/2026Start: 02-06-2025 End: 62-39-3883Hbeesyd encounter wivybfwzp76/26/2025 10:00 AM EDT Office Visit [facility] [address] [place] [address] La Pack NP [address] [place] [address] [facility] FMStart: 01-31-2025 End: 71-81-1207Nqzxhab encounter viiijmchu80/20/2025 11:00 AM EDT Office Visit TIA MIRANDA [address] [place] [address] Tashia Polk PA [address] [place] [address] TIA LEOtart: 43-59-4592Rjpvfwifg for malignant neoplasm of breast MammogramNOPR HealthcareStart: 01-14-2025 End: 12-66-6902Llieoxh encounter kfemdyuot68/03/2025 9:30 AM EST Office Visit [facility] [address] [place] [address] Ian Soares MD [address] [place] [address] [facility] FMComment on above:ArrivedStart: 42-95-2635Squtn screening for proteinDiabetes: Urine Protein ScreeningNOPR HealthcareStart: 12-20-2024 End: 82-26-7364Lfwcfrv encounter eoznqoeki71/06/2025 10:00 AM EST Office Visit [facility] [address] [place] [address] Daniel Cardoso NP [address] [place] [address] [facility] FMStart: 37-05-8346ZyuujxhhmCity Hospital Start: 76-63-2776Bxonfoadraydzw of prophylactic treatmentAultman Hospitaltart: 04-19-9961Godopbmo to rehabilitation physicianAultman Hospitaltart: 91-39-6921UeddcaqgwAultman Hospitaltart: 81-87-5170XnupvyliwAultman Hospitaltart: 75-30-5337Zkrzghlvplye [facility] Hospitaltart: 73-34-4559Xynevbee admissionAultman Hospitaltart: 61-52-0325Cfytomxw identified in Blood by Culture Blood CultureAultman Hospitaltart: 19-86-1182Lxdfhtdyqot Ventilation, 24-96 Consecutive HoursRespiratory Ventilation, 24-96 Consecutive HoursAultman Hospitaltart: 93-36-7680Efyrspvfzwkk Vaccine: 65+ Years (1 of 2 - PCV)Pneumococcal Vaccine: 65+ Years (1 of 2 - PCV)[facility] HealthcareComment on above:Postponed from 1959 (Other Patient Reasons) Start: 10-10-2024 End: 66-72-7453Igmmymu encounter qddbggbwe07/27/2024 9:20 AM EST Office Visit [facility] [address] [facility] [address] [place] [address] Tashia Polk PA [address] [place] [address] [facility] ROUTEStart: 09-20-2024 End: 17-41-4539Pavdpvf encounter procedureNOMS C[facility] FMComment on above:Arrived Start: 07-18-2024 End: 26-27-7330Yunqswh encounter procedureNOMS [place] [facility] ROUTEStart: 68-46-0287Vvdgxwmjl vaccinationNOPR HealthcareStart: 75-77-9992Itpjqehaji A1c measurementDiabetes: Hemoglobin J1ZVZMF HealthcareStart: 06-36-8976Dyxs Risk ScreeningFall Risk ScreeningSelect [facility] Specialty [facility] SystemStart: 2003 Administration of varicella zoster vaccineZoster (Shingles) Vaccine (1 of 2) ProMLéa et Léotart: 17-46-2288ASzA,Tdap and Td Vaccines (1 - Tdap) DTaP,Tdap and Td Vaccines (1 - Tdap)[facility] SystemStart: 1971 Adult BMI ScreeningAdult BMI ScreeningAtrium Health Union Westtart: 1971 Diabetic foot examinationDiabetic Foot ExamSelect Medical Specialty [facility] SystemStart: 58-08-5146Wiptdwmltr ScreeningDepression ScreeningSelect [facility] SystemStart: 45-23-1574Cexontg ScreeningTobacco ScreeningSelect [facility] Specialty [facility] SystemStart: 24-50-2226IZnI/Tdap/Td Vaccines (1 - Tdap)DTaP/Tdap/Td Vaccines (1 - Tdap)[facility] HealthcareStart: 53-60-0421Hplptcyqccqk Vaccine: 65+ Years (1 of 2 - PCV) Pneumococcal Vaccine: 65+ Years (1 of 2 - PCV)[facility] CenterStart: 1953 Glaucoma screeningDiabetic Ophthalmology ExamAtrium Health Union Westtart: 16-29-3544Ppwiqbylq for malignant neoplasm of colonASHLEY REGIONAL [facility]ENTER HealthcareStart: 36-59-5457Ncvxol Use: DiabeticStatin Use: DiabeticSumma Health Wadsworth - Rittman Medical CenterBLOOD CULTURE 2BLOOD CULTURE 2 Lab Routine 12/09/2024 4:21 PM [facility] Comprehensive metabolic 1999 panel - Serum or [facility] HospitalComprehensive metabolic 1999 panel - Serum or [facility] HospitalPatient referralFairfield Medical Center Work Phone: [facility] TransthoracicH[facility] Immunizations Immunization DateImmunizationNotesCare KcxlgwbiJeljdecz61-97-7284Jijanginfacp Conjugate PCV 20Lisa Aichholz [employer] Work Phone: [facility] CenterUmvqoezdpn63-35-4022ZHYI-OKB-4 (COVID-19) vaccine, mRNA, spike protein, LNP, bivalent, preservative free, 30 mcg/0.3 mL dose, carolyn-sucrose formulationLisa Aichholz [employer] Work Phone: [facility] CenterGtlbjjmyhg88-77-7593Znvofttvq, High-dose Seasonal, Quadrivalent, Preservative FreeTaylorfrancisco Walker [employer] Work Phone: [facility] CenterIejmldjatl12-09-7630oxzylekdr virus vaccine, unspecified formulationBrpeterfrancisco Walker [employer] Work Phone: [facility] Payers DatePayer CategoryPayerPolicy [id number] 2025Self-pay 2024Medicare [facility] MEDICARE Member Subscriber Plan / Payer (Effective 2023-Present) Name: Julian Montaño MMember ID: [id number] Relation to Subscriber: Self Name: Julian Montaño Payer ID: [id number] (NAIC) Group ID: [id number] Type: Not on file Address: [address] [place] [id number] 2021Medicare (Managed Care)[employer] [id number] 2016Medicare [id number] [id number] 2.840.1.466122.3.57[id number] 2.840.1.188359.3.57[id number] 2.0.1.742551.3.57[id number] 2.0.1.119572.3.57[id number] 2.0.1.906833.3.57[id number] 2.0.1.209599.3.57[id number] 2.0.1.436548.3.57[id number] 2.0.1.543618.3.57[id number] 2.0.1.123172.3.57[id number] 2..1.694769.3.57[id number] 2.0.1.739[id number] 2.840.1.777492.3.579.2.531 Social History DateTypeDetailFacilityTobacco smoking statusGalion Hospitaltart: 03-08-2024 End: 76-14-1793Tye Assigned At BirthFemalCommunity Memorial Hospitaltart: 11-21-2023 End: 13-14-5030Enmiahn smoking status NHISSmokes tobacco dailyNOMS Healthcare History of tobacco useCigarette SmokerNOMS HealthcareHistory of tobacco use Passive smokerNOMS HealthcareStart: 11-21-2023 End: 82-82-8033Jsgjrab use and exposureSmokeless tobacco non-userNOMS Healthcare Start: 11-29-2023 End: 59-01-9596Qvbzbxkhf beverage intakeLifetime non-drinker (finding)[facility] HealthcareStart: 03-08-2024 End: 09-27-7661Xlrrqwc of Social functionNOMS HealthcareStart: 56-47-6583Wnlefpd CommentCaffeine: 2-3 cups per dayNOMS HealthcareStart: 19-10-0091Rre assigned at birthNot on fileNOMS HealthcareStart: 38-12-7056Wupagct smoking status NHIS Unknown if ever smokedOhiohealth Grove City Methodist Hospital CenterStart: 12-14-2024 End: 99-16-9402PbnDvjgyy (finding)Aultman Hospitaltart: 24-68-6864Dja Assigned At BirthFeThe MetroHealth Systemtart: 11-29-2019 End: 09-42-1688Lreymoq smoking status NHISEx-smokerMercer County Community Hospital Health System History of tobacco useCurrent smokerProChoctaw General Hospital Health SystemStart: 02-19-2021 Alcoholic beverage intakeCurrent non-drinker of alcohol (finding)[facility] SystemStart: 23-12-0377VhfbryypnOorvckgNLWY Healthcare Medical Equipment Procedure CodeEquipment CodeEquipment Original TextEquipment IdentifierDates [id number]: 11-21-2023 End: each in the morning.[id number]: 11-21-2023 End: each by In Vitro route [id number]: 01-30-2025 End: 01-30-2026 Goals DatePatient GoalDesired Activity/State Functional Status YjkmPwdnxinzalMvzyfkDwdjuzjr90-49-9991Iathbqmcum statusPatient at Baseline [facility] Work Phone: [phone] Health Questionnaire 2 item (PHQ-2) [Reported][facility] Mental Status PjgdDrpsvtywnoJcwzdqPrwwrbzt72-37-8946Pzcdfixfq functionCognitive Status Patient at BaselineFairfield Medical Center Work Phone: Clinical Notes 09-11-2024 to 07-31-2025 Note Date & QzsfJuplChyskgqf21-78-9250 Evaluation note* Diagnosis Onset Date Resolution Status Admit Date Edema of both lower extremities acuteSeptember 2024 10:36amElevated TSHacuteSeptember 2024 10:36am Generalized anxiety disorderacuteSeptember 2024 10:36amIron deficiency anemia due to chronic blood lossacuteSept2024 10:36amRecurrent major depressive disorder, in full remissionacuteSept2024 10:36amEdema of both lower extremitiesacuteOctober 2024 8:52amIron deficiency anemia due to chronic blood lossacuteOctober 2024 8:52am [facility] Work Phone: 1(160) 315-173009-17-2025 Evaluation note* Diagnosis Onset Date Resolution Status [...] with complicationacuteOctober 2024 1:01pmPrimary hypertensionacuteOctober 2024 1:01pm [facility] Work Phone: 1(954) 774-817508-13-2025 History of Present illness Narrative* La Pack [...] usually avgs around 140-150s * La Ramone, [employer] - 06/26/2025 10:30 AM EDT Images from [...] cholecalciferol (VITAMIN D-3) 50 mcg, Oral, Daily Deywfpsxifh-Euovpgkva-Oycjiv (Trelegy Ellipta) 200-62.5-25 MCG/ACT aerosol powder 1 Inhalation, Inhalation, Daily Qpyeflpboii-Geuqvmbjl-Vosecl (Trelegy Ellipta) 200-62.5-25 MCG/ACT aerosol powder 1 [...] complication, without long-term current use of insulin ([facility]) Check blood sugars daily, notify [...] dependence without complication Has not smoked since [email or web address] Generalized anxiety disorder Will increase dose of [...] dependence without complication Has not smoked since [email or web address] * La Pack NP - 06/26/2025 5:02 [...] Current meds: albuterol, trelegy documented in this encounterSt. Joseph Medical CenterAgwiddkzha33-14-9614 Instructions* Patient Instructions* La Pack NP - 06/26/2025 10:30 AM EDT For your anxiety: we are going to increase sertraline to 100mg pill once a day. Also adding buspar 5mg twice a day for anxiety Add antibiotic for leg cephalexin twice for 10 days, and water pill for swelling leg lasix 20mg daily Check blood work in 10 days documented in this encounterSt. Joseph Medical CenterKexnljwaik44-84-9442 History of Present illness Narrative* La Pack [...] being taken. 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 Depression Visit Type: follow-up [...] breakfast, Do not crush, chew, or split. Zhbupmswytn-Bwmpcdjyg-Modyge (Trelegy Ellipta) 200-62.5-25 MCG/ACT aerosol powder 1 [...] current use of insulin ([facility]) Check blood sugars daily, notify [...] Recurrent major depressive disorder, in full remission ([facility]) Takes sertraline daily Screening mammogram, encounter for Relevant Orders Bilateral screening mammogram COPD (chronic obstructive pulmonary disease) ([facility]) - Primary Wears oxygen at home Current meds: albuterol, trelegy Primary hypertension ([facility]) Please check blood pressure daily [...] D 25 hydroxy Acute hypoxic respiratory failure ([facility]) Wears oxygen at home Inhalers: trelegy, albuterol Cigarette nicotine dependence without complication Has not smoked since [email or web address] Generalized anxiety disorder (CMS/HCC) Takes ativan prn, and sertraline Relevant Orders TSH * La Pack NP - 02/06/2025 6:32 AM EDTAssociated Problem(s): Other hyperlipidemia (CMS/[facility]) On statin therapy Check labs [...] dependence without complication Has not smoked since [facility] * La Pack NP - 02/06/2025 6:27 [...] without complication, without long-term current useof insulin ([facility]) Check blood sugars daily, notify [...] 02/06/2025 6:25 AM EDTAssociated Problem(s): Primary hypertension ([facility]) Please check blood pressure daily and record DASH diet Limit caffeine Take medication as directed Contact office if chest pain, pressure, dizziness, shortness of breath, swelling legs Recommend slow position changes Current meds: losartan * La Pack NP - 02/06/2025 6:23 AM EDTAssociated Problem(s): COPD (chronic obstructive pulmonary disease) ([facility]) Wears oxygen at home Current meds: albuterol, trelegy documented in this encounterSt. Joseph Medical CenterIvikuivmhz48-81-2521 Instructions* Patient Instructions* La Pack NP - 02/06/2025 10:00 AM EDT Get labs completed fasting 8 hours Mammogram we will fax order to [facility], if you dont hear from them in 2 weeks, call [phone] Great job on quitting smoking documented in this encounterSt. Joseph Medical CenterVfhdafpqzt05-59-3260 History of Present illness Narrative* La Pack [...] Suture / Staple Removal (head) HPI: [facility] ER on 01/14/25 for scalp lac, s/p [...] breakfast, Do not crush, chew, or split. Hnnxevstnth-Upomckzmt-Bobgex (Trelegy Ellipta) 200-62.5-25 MCG/ACT aerosol powder 1 [...] to start this process documented in this encounterSt. Joseph Medical CenterSposugwrtf20-85-7215 Instructions* Patient Instructions* La Pack NP - 01/23/2025 11:30 AM EDT May wash hair, Take augmentin atb as directed, fluids, encourage cough and deep breathing If worsening breathing go to ER documented in this encounterSt. Joseph Medical CenterDllhhlfjec84-59-3934 History of Present illness Narrative* Ian Soares [...] AM ESTAssociated Problem(s): Acute hypoxic respiratory failure ([facility]/HCC) SpO2 stable and wean oxygen as tolerated. [...] and intubated by EMS. Brought to [facility] then [place] [facility] Admitted 12/09-12/14 and treated for influenza A [...] complication, without long-term current use of insulin (CMS/[facility]) BS controlled and monitor. Stick to ADA diet and limit carbs. COPD (chronic obstructive pulmonary disease) (CMS/[facility]) Breathing stable and continue inhalers. Use albuterol nebulized PRN. Script for new nebulizer machine to patient. Relevant Medications albuterol HFA 90 mcg/act inhaler Primary hypertension (CMS/HCC) BP controlled and monitor PRN. Acute hypoxic respiratory failure (CMS/HCC) SpO2 stable and wean oxygen as tolerated. Influenza A - Primary Recent infection but improved and monitor. documented in this encounterSt. Joseph Medical [id number] History of Present illness Narrative* Stephen Macias, DO - 01/01/2025 1:19 PM EST Patient Name: Julian Montaño Date of : 1955 Date of Service: 01/01/2025 Facility: [facility] Type of Visit: Skilled Visit Subjective Julian Montaño is a 69 y.o. female seen today at shelter facility for therapy visit. Julian is participating [...] Exam Vitals reviewed. Exam conducted with a base loader present (Priyank Ward MS3). Constitutional: General: She [...] Acute hypoxic respiratory failure ([facility]) 2. Aspiration pneumonia, unspecified aspiration pneumonia type, unspecified laterality, unspecifiedpart of lung ([facility]) 3. Chronic obstructive pulmonary disease, unspecified COPD type ([facility]) 4. Influenza A 5. Type 2 diabetes mellitus without complication, without long-term current use of insulin ([facility]) 6. Other abnormalities of gait [...] BY: Stephen Macias DO documented in this encounterSum[facility] History of Present illness Narrative* Stephen Macias DO - 12/28/2024 2:56 PM EST Patient Name: Julian Montaño Date of : 1955 Date of Service: 12/28/2024 Facility: [facility] Type of Visit: Skilled Visit Subjective Julian Montaño is a 69 y.o. female seen today at shelter facility for therapy visit. Julian is in therapy. She is slowly improving. Staff is needing a fonn-ov-waiw visit to document her oxygen in wheelchair [...] Exam Vitals reviewed. Exam conducted with a base loader present (Priyank Ward MS3). Constitutional: General: She [...] BY: Stephen Macias DO documented in this encounterKing's Daughters [facility] OhioRutanet [facility] Voigtlander Women'S [id number] History of Present illness Narrative* Stephen Macias DO - 12/25/2024 11:59 PM EST Patient Name: Julian Montaño Date of : 1955 Date of Service: 12/25/2024 Facility: [facility] Type of Visit: Skilled Visit Subjective Julian Montaño is a 69 y.o. female seen today at shelter facility for therapy visit. Julian is participating [...] Exam Vitals reviewed. Exam conducted with a base loader present (Priyank Ward MS3). Constitutional: General: She [...] BY: Stephen Macias DO documented in this encounterSumma Health [facility]ad[facility]02-04-2025 History of Present illness Narrative* Stephen Macias DO - 12/18/2024 11:59 PM EST Patient Name: Julian Montaño Date of : 1955 Date of Service: 12/18/2024 Facility: [facility] Type of Visit: Admission H&P Subjective Julian Montaño is a 69 y.o. female seen today at shelter facility for admission H&Makeda Gardiner presents to [facility] following [facility]. She was diagnosed with acute hypoxic [...] Past Medical History: Diagnosis Date Acoustic neuroma ([facility]) Anemia Asymmetric SNHL (sensorineural hearing loss) Benign neoplasm of cranial nerve ([facility]) Bilateral cataracts Chronic bronchitis ([facility]) Chronic cough Constipation COPD (chronic obstructive pulmonary disease) ([facility]) Depression Diabetes mellitus ([facility]) history of GERD (gastroesophageal reflux disease) Hemorrhoids History of brain tumor removed in 1997, came back 2018 Hyperlipidemia Hypertension Macular degeneration Osteoarthritis of hip Personal history of tobacco use Positive occult stool blood test Right acoustic neuroma ([facility]) Splenic sequestration Vitamin D deficiency [...] Exam Vitals reviewed. Exam conducted with a base loader present (Priyank Ward MS3). Constitutional: General: She [...] Acute hypoxic respiratory failure ([facility]) 2. Chronic obstructive pulmonary disease, unspecified COPD type ([facility]) 3. Influenza A 4. Aspiration pneumonia, unspecified aspiration pneumonia type, unspecified laterality, unspecifiedpart of lung ([facility]) 5. Depression, unspecified depression type 6. Cigarette smoker 7. Type 2 diabetes mellitus without complication, without long-term current use of insulin ([facility]) 8. [facility] [...] BY: Stephen Macias DO documented in this encounterKing's Daughters Medical Center OhioYottaMark [id number] Discharge summary Author Daniel Garza City HospitalNote Date/TimeJanuary 2024 2:47pm [address] [place] [address] Discharge Summary Signed Patient: Julian Montaño MR#: [id number] : 1955 Acct:[id number] Age/Sex: 69 / F Adm Date: 5 Loc: Room: [address] [place] [address]: Daniel Garza MD Copies to: MD Daniel Cruz, DEPUTY COUNTY COUNSEL-C~ Providers Date of Discharge: 12/14/24 Discharging Provider: [...] as GERD and depression. Patient came to [facility] after she was intubated by the [...] vomiting and no other concerns as per [facility] documentation. Labs at [facility] showed CBC with leukocytosis and left shift, [...] no signs ofUTI. Her ABG wasdone at [facility] ER showed pH of 7.16 as well as PaCO2 of 71.5. She was intubated by EMS, was given 100 mg of succinylcholine 60 mg of ketamine and then 50 mg of fentanyl and 5 mg of Versed as well as 6.4 mg of Elconin. Also they reached out to cardiology at [facility] recommending again heparinization. EKG showed sinus tachycardia [...] started on bronchodilator steroid antibiotics and oseltamivir. Back Filler Operator was consulted who recommended continuing the [...] possible inpatient rehab who recommended discharge to shelter facility. Patient was waiting for pre-CERT to shelter facility and is finally approved and isbeing [...] with device INHALATION Follow Up: Daniel Cardoso DEPUTY COUNTY COUNSEL-C [Primary Care Provider] - (Follow-up with your [...] % (Auto) 84.6, Lymph % (Auto) 7.0, [place] % (Auto) 8.2, Eos % (Auto) 0.0, Baso % (Auto) 0.2, Nucleat RBC Rel Count 0.1, Neut # (Auto) 7.2, Lymph # (Auto) 0.6 L, [place] # (Auto) 0.7, Eos # (Auto) 0.0, [...] 141 Documented By: Daniel Garza MD 12/14/24 1446 Signed By: <Electronically signed by Daniel Garza MD> 12/14/24 1447 [facility] Work Phone: 1(440) 574-131101-31-2025 Progress note Author Daniel Garza [facility] HospitalNote Date/TimeJanuary 2024 1:58pm [address] [address] Hospitalist Progress Note Signed Patient: Julian Montaño MR#: [id number] : 1955 Acct:[id number] Age/Sex: 69 / F Adm Date: 5 Loc: Room: [address] [place] [address] Type: ADM IN Attending Dr: Daniel Garza MD Copies to: ~ Date of Service: 12/14/2024 Subjective Subjective Narrative: This is a 69 y.o female with past medical history of COPD, dyslipidemia, hypertension, type 2 diabetes as well as GERD and depression. Patient came to [facility] after she was intubated by the [...] vomiting and no other concerns as per [facility] documentation. Labs at [facility] showed CBC with leukocytosis and left shift, [...] no signs ofUTI. Her ABG wasdone at [facility] ER showed pH of 7.16 as well as PaCO2 of 71.5. She was intubated by EMS, was given 100 mg of succinylcholine 60 mg of ketamine and then 50 mg of fentanyl and 5 mg of Versed as well as 6.4 mg of Elconin. Also they reached out to cardiology at [facility] recommending again heparinization. EKG showed sinus tachycardia [...] started on bronchodilator steroid antibiotics and oseltamivir. Back Filler Operator was consulted who recommended continuing the [...] 12/12/25 21:59 Not Given ACHS [facility] Protocol Oseltamivir Phosphate 30 mg 12/13/24 21:00 [...] -PMR was consulted who recommended discharge to shelter facility. Full code Documented By: Daniel Garza MD 12/14/24 1356 Signed By: <Electronically signed by Daniel Garza MD> 12/14/24 1358 [facility] Work Phone: 1(265) 484-680901-31-2025 Progress note Author Cecilia Ruiz [facility] HospitalNote Date/TimeJanuary 2024 1:18pm [place] [address] Pulmonology Progress Note Signed Patient: Julian Montaño MR#: [id number] : 1955 Acct:[id number] Age/Sex: 69 / F Adm Date: 5 Loc: 4 Room: [address] [place] [address] Type: ADM IN Attending Dr: Daniel Garza [...] 12/14/241316 Signed By: <Electronically signed by Cecilia uRiz MD> 12/14/24 1318 [facility] Work Phone: 1(254) 644-913101-31-2025 [place] [id number] Discharge Summary Signed Patient: Julian Montaño MR#: [id number] : 1955 Acct:[id number] Age/Sex: 69 / F Adm Date: 5 Loc: Room: [address] [place] [address]: Daniel Garza MD Copies to: MD Daniel Cruz, DEPUTY COUNTY COUNSEL-C~ Providers Date of Discharge: 12/14/24 Discharging Provider: Daniel Graza Primary Care Provider: Daniel Cardoso Consults: 12/09/24 [...] as GERD and depression. Patient came to [facility] after she was intubated by the [...] vomiting and no other concerns as per [facility] documentation. Labs at [facility] showed CBC with leukocytosis and left shift, [...] no signs ofUTI. Her ABG wasdone at [facility] ER showed pH of 7.16 as well as PaCO2 of 71.5. She was intubated by EMS, was given 100 mg of succinylcholine 60 mg of ketamine and then 50 mg of fentanyl and 5 mg of Versed as well as 6.4 mg of Elconin. Also they reached out to cardiology at [facility] recommending again heparinization. EKG showed sinus tachycardia [...] started on bronchodilator steroid antibiotics and oseltamivir. Back Filler Operator was consulted who recommended continuing the [...] possible inpatient rehab who recommended discharge to shelter facility. Patient was waiting for pre-CERT to shelter facility and is finally approved and isbeing [...] with device INHALATION Follow Up: Daniel Cardoso, DEPUTY COUNTY COUNSEL-C [Primary Care Provider] - (Follow-up with your [...] % (Auto) 84.6, Lymph % (Auto) 7.0, [place] % (Auto) 8.2, Eos % (Auto) 0.0, Baso % (Auto) 0.2, Nucleat RBC Rel Count 0.1, Neut # (Auto) 7.2, Lymph # (Auto) 0.6 L, [place] # (Auto) 0.7, Eos # (Auto) 0.0, [...] MD 12/14/24 144 Signed By: 12/14/24 1447 [facility] [place] [id number] Hospitalist Progress Note Signed Patient: Julian Montaño MR#: [id number] : 1955 Acct:[id number] Age/Sex: 69 / F Adm Date: 5 Loc: Room: 9R8894-3 Type: ADM IN Attending Dr: Daniel Garza MD Copies to: ~ Date of Service: 12/14/2024 Subjective Subjective Narrative: This is a 69 y.o female with past medical history of COPD, dyslipidemia, hypertension, type 2 diabetes as well as GERD and depression. Patient came to [facility] after she was intubated by the [...] vomiting and no other concerns as per [facility] documentation. Labs at [facility] showed CBC with leukocytosis and left shift, [...] no signs ofUTI. Her ABG wasdone at [facility] ER showed pH of 7.16 as well as PaCO2 of 71.5. She was intubated by EMS, was given 100 mg of succinylcholine 60 mg of ketamine and then 50 mg of fentanyl and 5 mg of Versed as well as 6.4 mg of Elconin. Also they reached out to cardiology at [facility] recommending again heparinization. EKG showed sinus tachycardia [...] started on bronchodilator steroid antibiotics and oseltamivir. Back Filler Operator was consulted who recommended continuing the [...] -PMR was consulted who recommended discharge to shelter facility. Full code Documented By: Daniel Garza MD 12/14/24 1356 Signed By: 12/14/24 1358 [facility]2025 [place] [id number] Pulmonology Progress Note Signed Patient: Julian Montaño MR#: [id number] : 1955 Acct:[id number] Age/Sex: 69 / F Adm Date: 5 Loc: Room: [address] [place] [address] Type: ADM IN Attending Dr: Daniel Garza [...] Ruiz MD 12/14/241316 Signed By: 12/14/24 1318 [facility]01-30-2025 Progress note Author Cecilia Ruiz [facility]Note Date/TimeJanuary 2024 1:53pm [place] [address] Pulmonology Progress Note Signed Patient: Julian Montaño MR#: [id number] : 1955 Acct:[id number] Age/Sex: 69 / F Adm Date: 5 Loc: Room: [address] [place] [address] Type: ADM IN Attending Dr: Daniel Garza [...] signed by Cecilia Ruiz MD> 12/13/24 1353 [facility] Work Phone: 1([phone]) 183-227801-30-2025 Progress note Author Daniel Garza [facility]Note Date/TimeJanuary 2024 1:41pm [place] [address] Hospitalist Progress Note Signed Patient: Julian Montaño MR#: [id number] : 1955 Acct:[id number] Age/Sex: 69 / F Adm Date: 5 Loc: 4 Room: [address] [place] [address] Type: ADM IN Attending Dr: Daniel Garza MD Copies to: ~ Date of Service: 12/13/2024 Subjective Subjective Narrative: This is a 69 y.o female with past medical history of COPD, dyslipidemia, hypertension, type 2 diabetes as well as GERD and depression. Patient came to [facility] after she was intubated by the [...] vomiting and no other concerns as per [facility] documentation. Labs at [facility] showed CBC with leukocytosis and left shift, [...] no signs ofUTI. Her ABG wasdone at [facility] ER showed pH of 7.16 as well as PaCO2 of 71.5. She was intubated by EMS, was given 100 mg of succinylcholine 60 mg of ketamine and then 50 mg of fentanyl and 5 mg of Versed as well as 6.4 mg of Elconin. Also they reached out to cardiology at [facility] recommending again heparinization. EKG showed sinus tachycardia [...] started on bronchodilator steroid antibiotics and oseltamivir. Back Filler Operator was consulted who recommended continuing the [...] -PMR was consulted who recommended discharge to shelter facility. Full code Documented By: Daniel Garza MD 12/13/24 1337 Signed By: <Electronically signed by Daniel Garza MD> 12/13/24 1341 [facility] Work Phone: 1(115) 162-999201-30-2025 Consult note Author Dave Bazan [facility]Note Date/TimeJanuary 2024 1:29pm [place] [address] Physiatry (Rehab) Consult Note Signed Patient: Julian Montaño MR#: [id number] : 1955 Acct:[id number] Age/Sex: 69 / F Adm Date: 5 Loc: Room: [address] [place] [address] Type: ADM IN Attending Dr: Daniel Garza MD Copies to: MD Daniel Cruz NP-C Christian D Siebenaler, MD~ HPI Consult Date: 12/13/24 Requesting Physician: Daniel Garza MD Primary Care Provider: SILVER Francois Consult Narrative HPI: Ms. Montaño is a 69 year old female with PMH COPD, dyslipidemia, hypertension, type2 diabetes as well as GERD and depression. [facility] after being found unresponsive and being intubated [...] negative unless noted below or in HPI [facility] Medical History Depressed Acute hypoxic respiratory failure [...] 62.5 mcg-vilant 25 mcg inhalat.powder (Trelegy Ellipta) uryifzzjgt08/27/25 [History] losartan 50 mg tablet mg 12/10/24 [...] % (Auto) 87.0 Lymph % (Auto) 6.4 [place] % (Auto) 6.5 Eos % (Auto) 0.0 Baso % (Auto) 0.1 Nucleat RBC Rel Count 0.1 Neut # (Auto) 9.3 H Lymph # (Auto) 0.7 L [place] # (Auto) 0.7 Eos # (Auto) 0.0 [...] MPV Neut % (Auto) Lymph % (Auto) [place] % (Auto) Eos % (Auto) Baso % (Auto) Nucleat RBC Rel Count Neut # (Auto) Lymph # (Auto) [place] # (Auto) Eos # (Auto) Baso # [...] this patient on discharge should be a shelter facility. She does not meet inpatient rehab [...] chart, including current orders, allied health and nursing consultant notes, labs/imaging and performed barrow elements of exam and I formulated the plan of care and facilitated the medical decision making. I completed a substantive portion of this encounter, the medical decision making portion of this note in its entirety, including Allied health note review, nursing note review, nursing consultant note review, discussion with nursing and case management, and more than 50% of my time was spent on counseling and coordination of care, time spent 45 minutes Documented By: Dave Bazan MD 1256 Signed By: <Electronically signed by Dave Bazan MD> 12/13/24 1321 [facility] Work Phone: 1(816) 747-231801-30-[address] [address] Pulmonology Progress Note Signed Patient: Julian Montaño MR#: [id number] : 1955 Acct:[id number] Age/Sex: 69 / F Adm Date: 5 Loc: 4P Room: [address] [place] [address] Type: ADM IN Attending Dr: Daniel Garza [...] MD 12/13/24 1351 Signed By: 12/13/24 1353 [facility]01[facility]30[facility]2025 [place] [id number] Hospitalist Progress Note Signed Patient: Julian Montaño MR#: [id number] : 1955 Acct:[id number] Age/Sex: 69 / F Adm Date: 5 Loc: Room: [address] [place] [address] Type: ADM IN Attending Dr: Daniel Garza MD Copies to: ~ Date of Service: 12/13/2024 Subjective Subjective Narrative: This is a 69 y.o female with past medical history of COPD, dyslipidemia, hypertension, type 2 diabetes as well as GERD and depression. Patient came to [facility] ER after she was intubated by the [...] vomiting and no other concerns as per [facility] documentation. Labs at [facility] showed CBC with leukocytosis and left shift, [...] no signs ofUTI. Her ABG wasdone at [facility] ER showed pH of 7.16 as well as PaCO2 of 71.5. She was intubated by EMS, was given 100 mg of succinylcholine 60 mg of ketamine and then 50 mg of fentanyl and 5 mg of Versed as well as 6.4 mg of Elconin. Also they reached out to cardiology at [facility] recommending again heparinization. EKG showed sinus tachycardia [...] started on bronchodilator steroid antibiotics and oseltamivir. Back Filler Operator was consulted who recommended continuing the [...] 12/12/25 21:59 Not Given ACHS [facility] Protocol Oseltamivir Phosphate 30 mg 12/13/24 21:00 [...] -PMR was consulted who recommended discharge to shelter facility. Full code Documented By: Daniel Garza MD 12/13/24 1337 Signed By: 12/13/24 1341 [facility]2025 [place] [address] Physiatry (Rehab) Consult Note Signed Patient: Julian Montaño MR#: [id number] : 1955 Acct:[id number] Age/Sex: 69 / F Adm Date: 5 Loc: Room: [address] [place] [address] Type: ADM IN Attending Dr: Daniel Garza MD Copies to: Daniel Kayla, MD DanielSILVER Zamarripa MD~ HPI Consult Date: 12/13/24 Requesting Physician: Daniel Garza MD Primary Care Provider: SILVER Francois Consult Narrative HPI: Ms. Montaño is a 69 year old female with PMH COPD, dyslipidemia, hypertension, type2 diabetes as well as GERD and depression. The patient was [facility] [place] [facility] after being found unresponsive and being intubated [...] negative unless noted below or in HPI [facility] Medical History Depressed Acute hypoxic respiratory failure [...] 62.5 mcg-vilant 25 mcg inhalat.powder (Trelegy Ellipta) siarbnrxmq05/27/25 [History] losartan 50 mg tablet mg 12/10/24 [...] % (Auto) 87.0 Lymph % (Auto) 6.4 [place] % (Auto) 6.5 Eos % (Auto) 0.0 Baso % (Auto) 0.1 Nucleat RBC Rel Count 0.1 Neut # (Auto) 9.3 H Lymph # (Auto) 0.7 L [place] # (Auto) 0.7 Eos # (Auto) 0.0 [...] MPV Neut % (Auto) Lymph % (Auto) [place] % (Auto) Eos % (Auto) Baso % (Auto) Nucleat RBC Rel Count Neut # (Auto) Lymph # (Auto) [place] # (Auto) Eos # (Auto) Baso # [...] this patient on discharge should be a shelter facility. She does not meet inpatient rehab [...] chart, including current orders, allied health and nursing consultant notes, labs/imaging and performed barrow elements of exam and I formulated the plan of care and facilitated the medical decision making. I completed a substantive portion of this encounter, the medical decision making portion of this note in its entirety, including Allied health note review, nursing note review, nursing consultant note review, discussion with nursing and case management, and more than 50% of my time was spent on counseling and coordination of care, time spent 45 minutes Documented By: Dave Bazan MD 1256 Signed By: 12/13/24 1329 [facility]01[facility]29[facility]2025 Progress note Author Daniel Garza [facility]Note Date/TimeJanuary 2024 2:45pm [address] [address] Hospitalist Progress Note Signed Patient: Julian Montaño MR#: [id number] : 1955 Acct:[id number] Age/Sex: 69 / F Adm Date: 5 Loc: Room: [address] [place] [address] Type: ADM IN Attending Dr: Daniel Garza MD Copies to: ~ Date of Service: 12/12/2024 Subjective Subjective Narrative: This is a 69 y.o female with past medical history of COPD, dyslipidemia, hypertension, type 2 diabetes as well as GERD and depression. Patient came to [facility] after she was intubated by the [...] vomiting and no other concerns as per [facility] documentation. Labs at [facility] showed CBC with leukocytosis and left shift, [...] no signs ofUTI. Her ABG wasdone at [facility] ER showed pH of 7.16 as well as PaCO2 of 71.5. She was intubated by EMS, was given 100 mg of succinylcholine 60 mg of ketamine and then 50 mg of fentanyl and 5 mg of Versed as well as 6.4 mg of Elconin. Also they reached out to cardiology at [facility] recommending again heparinization. EKG showed sinus tachycardia [...] started on bronchodilator steroid antibiotics and oseltamivir. Back Filler Operator was consulted who recommended continuing the [...] <Electronically signed by Daniel Garza MD> 12/12/24 1444 [facility] Work Phone: 1(481) 419-516301-29-2025 [place] [address] Hospitalist Progress Note Signed Patient: Julian Montaño MR#: [id number] : 1955 Acct:[id number] Age/Sex: 69 / F Adm Date: 5 Loc: Room: [address] [place] [address] Type: ADM IN Attending Dr: Daniel Garza MD Copies to: ~ Date of Service: 12/12/2024 Subjective Subjective Narrative: This is a 69 y.o female with past medical history of COPD, dyslipidemia, hypertension, type 2 diabetes as well as GERD and depression. Patient came to [facility] ER after she was intubated by the [...] vomiting and no other concerns as per [facility] documentation. Labs at [facility] showed CBC with leukocytosis and left shift, [...] no signs ofUTI. Her ABG wasdone at [facility] ER showed pH of 7.16 as well as PaCO2 of 71.5. She was intubated by EMS, was given 100 mg of succinylcholine 60 mg of ketamine and then 50 mg of fentanyl and 5 mg of Versed as well as 6.4 mg of Elconin. Also they reached out to cardiology at [facility] recommending again heparinization. EKG showed sinus tachycardia [...] started on bronchodilator steroid antibiotics and oseltamivir. Back Filler Operator was consulted who recommended continuing the [...] Garza MD 12/12/241442 Signed By: 12/12/24 1445 [facility]01-29[facility]2025 Progress note Author Cecilia Ruiz [facility]Note Date/TimeJanuary 2024 11:35am [place] [address] Pulmonology Progress Note Signed Patient: Julian Montaño MR#: [id number] : 1955 Acct:[id number] Age/Sex: 69 / F Adm Date: 5 Loc: Room: [address] [place] [address] Type: ADM IN Attending Dr: Daniel Garza [...] signed by Cecilia Ruiz MD> 12/12/24 1135 [facility] Work Phone: 1(722) 101-998901-29-2025 Progress [place]Shelley [place] [id number] Pulmonology Progress Note Signed Patient: Julian Montaño MR#: [id number] : 1955 Acct:[id number] Age/Sex: 69 / F Adm Date: 5 Loc: Room: [address] [place] [address] Type: ADM IN Attending Dr: Daniel Garza [...] Ruiz MD 12/12/241132 Signed By: 12/12/24 1135 [facility]01-28-2025 Progress note Author Cecilia Ruiz [facility]Note Date/TimeJanuary 2024 2:49pm [place] [address] Pulmonology Progress Note Signed Patient: Julian Montaño MR#: [id number] : 1955 Acct:[id number] Age/Sex: 69 / F Adm Date: 5 Loc: Room: [address] [place] [address] Type: ADM IN Attending Dr: Daniel Garza [...] signed by Cecilia Ruiz MD> 12/11/24 1449 [facility] Work Phone: 1(647) 348-404001-28-2025 Progress note Author Daniel Garza [facility]Note Date/TimeJanuary 2024 2:43pm [place] [address] Hospitalist Progress Note Signed Patient: Julian Montaño MR#: [id number] : 1955 Acct:[id number] Age/Sex: 69 / F Adm Date: 5 Loc: Room: 0M8696-8 Type: ADM IN Attending Dr: Daniel Garza MD Copies to: ~ Date of Service: 12/11/2024 Subjective Subjective Narrative: This is a 69 y.o female with past medical history of COPD, dyslipidemia, hypertension, type 2 diabetes as well as GERD and depression. Patient came to [facility] after she was intubated by the [...] vomiting and no other concerns as per [facility] documentation. Labs at [facility] showed CBC with leukocytosis and left shift, [...] no signs ofUTI. Her ABG wasdone at [facility] ER showed pH of 7.16 as well as PaCO2 of 71.5. She was intubated by EMS, was given 100 mg of succinylcholine 60 mg of ketamine and then 50 mg of fentanyl and 5 mg of Versed as well as 6.4 mg of Elconin. Also they reached out to cardiology at [facility] recommending again heparinization. EKG showed sinus tachycardia [...] started on bronchodilator steroid antibiotics and oseltamivir. Back Filler Operator was consulted who recommended continuing the [...] signed by Daniel Garza MD> 12/11/24 1443 [facility] Work Phone: 1(626) 298-699001-28-2025 [place] [address] Pulmonology Progress Note Signed Patient: Julian Montaño MR#: [id number] : 1955 Acct:[id number] Age/Sex: 69 / F Adm Date: 5 Loc: Room: [address] [place] [address] Type: ADM IN Attending Dr: Daniel Garza [...] Ruiz MD 12/11/241445 Signed By: 12/11/24 1449 [facility]01-28[facility]2025 [place] [address] Hospitalist Progress Note Signed Patient: Julian Montaño MR#: [id number] : 1955 Acct:[id number] Age/Sex: 69 / F Adm Date: 5 Loc: Room: [address] [place] [address] Type: ADM IN Attending Dr: Daniel Garza MD Copies to: ~ Date of Service: 12/11/2024 Subjective Subjective Narrative: This is a 69 y.o female with past medical history of COPD, dyslipidemia, hypertension, type 2 diabetes as well as GERD and depression. Patient came to [facility] after she was intubated by the [...] vomiting and no other concerns as per [facility] documentation. Labs at [facility] showed CBC with leukocytosis and left shift, [...] no signs ofUTI. Her ABG wasdone at [facility] ER showed pH of 7.16 as well as PaCO2 of 71.5. She was intubated by EMS, was given 100 mg of succinylcholine 60 mg of ketamine and then 50 mg of fentanyl and 5 mg of Versed as well as 6.4 mg of Elconin. Also they reached out to cardiology at [facility] recommending again heparinization. EKG showed sinus tachycardia [...] started on bronchodilator steroid antibiotics and oseltamivir. Back Filler Operator was consulted who recommended continuing the same. Duringthe stay her patient is slowly weaned off mechanical ventilation. Due to elevated troponin cardiology was consulted who recommended echocardiography. Transthoracic echocardiography showed normal ejection fraction of 65 to 73% withnormal wall motion. sputum culture-light normal respiratory cahse. Blood culture-no growth 1 day. Interval history-patient [...] MD 12/11/24 143 Signed By: 12/11/24 1443 [facility]01-28[facility]25 Consult note Author Krissy Cortez [facility] Date/TimeJanuary 2024 10:30pm [address] [address] Cardiology Consult Note Signed Patient: Julian Montaño MR#: [id number] : 1955 Acct:[id number] Age/Sex: 69 / F Adm Date: 5 Loc: Room: [address] [place] [address] Type: ADM IN Attending Dr: Daniel Garza MD Copies to: MD Daniel Cruz, [place] [place] COUNSEL-C Suman Butler DO,RES Krissy Cortez MD~ Cardiology [...] who was transferred to our facility from [facility] lastnight. Per prior documentation, the patient arrived to [facility] ER after being intubated by EMS. She was reportedly found unresponsive by her boyfriend (unknown downtime) and was not responding. Additionally, prior documentation reveals that family was noting the patient complaining of shortness ofbreath for 2 days prior to arrival in the emergency department. [facility] labs revealed a leukocytosis, hemoglobin of 10.6, [...] of Systems Unobtainable due to endotracheal tube [facility] Medical History (Updated 12/10/24 @ 15:52 by [...] 62.5 mcg-vilant 25 mcg inhalat.powder (Trelegy Ellipta) [id number]/27/25 [History] losartan 50 mg tablet mg 12/10/24 [...] H Lymph # (Auto) N/A 0.2 L [place] # (Auto) N/A 0.5 Eos # (Auto) [...] recheck about 9 hours later -EKG from [facility] reviewed and shows sinus tachycardia with right [...] <Electronically signed by DO DEVEN Butler> 12/10/24 1557 [facility] Work Phone: 1(795) 682-562601-27-2025 Consult [place] [id number] Cardiology Consult Note Signed Patient: Julian Montaño MR#: [id number] : 1955 Acct:[id number] Age/Sex: 69 / F Adm Date: 5 Loc: 4C Room: 6M2229-8 Type: ADM IN Attending Dr: Daniel Garza [...] who was transferred to our facility from [facility] lastnight. Per prior documentation, the patient arrived to [facility] ER after being intubated by EMS. She was reportedly found unresponsive by her boyfriend (unknown downtime) and was not responding. Additionally, prior documentation reveals that family was noting the patient complaining of shortness ofbreath for 2 days prior to arrival in the emergency department. [facility] labs revealed a leukocytosis, hemoglobin of 10.6, [...] 62.5 mcg-vilant 25 mcg inhalat.powder (Trelegy Ellipta) [id number]/27/25 [History] losartan 50 mg tablet mg 12/10/24 [...] H Lymph # (Auto) N/A 0.2 L [place] # (Auto) N/A 0.5 Eos # (Auto) [...] recheck about 9 hours later -EKG from [facility] reviewed and shows sinus tachycardia with right [...] 1020 Signed By: 12/10/24 2230 12/10/24 1554 [facility]25 Progress note Author Daniel Garza [facility] Date/TimeJanuary 2024 8:26pm [place] [address] Hospitalist Progress Note Signed Patient: Julian Montaño MR#: [id number] : 1955 Acct:[id number] Age/Sex: 69 / F Adm Date: 5 Loc: Room: [address] [place] [address] Type: ADM IN Attending Dr: Daniel Garza MD Copies to: ~ Date of Service: 12/10/2024 Subjective Subjective Narrative: This is a 69 y.o female that appears from the medication reconciliation [facility], patient appears to have past medical history of COPD, dyslipidemia, hypertension, type 2 diabetes as well as GERD anddepression. Patient came to [facility] ER after she was intubated by the [...] vomiting and no other concerns as per [facility] documentation. Labs at [facility] showed CBC with leukocytosis and left shift, [...] no signs ofUTI. Her ABG wasdone at [facility] ER showed pH of 7.16 as well as PaCO2 of 71.5. She was intubated by EMS, was given 100 mg of succinylcholine 60 mg of ketamine and then 50 mg of fentanyl and 5 mg of Versed as well as 6.4 mg of Elconin. Also they reached out to cardiology at [facility] recommending again heparinization. EKG showed sinus tachycardia [...] <Electronically signed by Daniel Garza MD> 12/10/242025 [facility] Work Phone: 1(854) 116-416301-27-2025 [place] [address] Hospitalist Progress Note Signed Patient: Julian Montaño MR#: [id number] : 1955 Acct:[id number] Age/Sex: 69 / F Adm Date: 5 Loc: Room: [address] [place] [address] Type: ADM IN Attending Dr: Daniel Garza MD Copies to: ~ Date of Service: 12/10/2024 Subjective Subjective Narrative: This is a 69 y.o female that appears from the medication reconciliation [facility], patient appears to have past medical history of COPD, dyslipidemia, hypertension, type 2 diabetes as well as GERD anddepression. Patient came to [facility] ER after she was intubated by the [...] vomiting and no other concerns as per [facility] documentation. Labs at [facility] showed CBC with leukocytosis and left shift, [...] no signs ofUTI. Her ABG wasdone at [facility] ER showed pH of 7.16 as well as PaCO2 of 71.5. She was intubated by EMS, was given 100 mg of succinylcholine 60 mg of ketamine and then 50 mg of fentanyl and 5 mg of Versed as well as 6.4 mg of Elconin. Also they reached out to cardiology at [facility] recommending again heparinization. EKG showed sinus tachycardia [...] Daniel Garza MD 12/10/242020 Signed By: 12/10/242025 [facility]25 Consult note Author Cecilia Ruiz [facility] Date/TimeJanuary 2024 4:32pm [place] [address] Pulmonology Consult Note Signed Patient: Julian Montaño MR#: [id number] : 1955 Acct:[id number] Age/Sex: 69 / F Adm Date: 5 Loc: Room: [address] [place] [address] Type: ADM IN Attending Dr: Daniel Garza [...] of Systems Unobtainable due to endotracheal tube [facility] Medical History (Updated 12/10/24 @ 15:52 by [...] nondistended. Extremities: No edema. 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 [...] signed by Cecilia Ruiz MD> 12/10/24 1632 [facility] Work Phone: 1(643) 192-111101-27-[address] [address] Pulmonology Consult Note Signed Patient: Julian Montaño MR#: [id number] : 1955 Acct:[id number] Age/Sex: 69 / F Adm Date: 5 Loc: 4C Room: 0X1464-6 Type: ADM IN Attending Dr: Daniel Garza [...] nondistended. Extremities: No edema. 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 [...] Ruiz MD 12/10/241624 Signed By: 12/10/24 1632 [facility]25 Evaluation note* Diagnosis Onset Date Resolution Status Admit Date Acute hypoxic respiratory failure acuteJanuary 2024 9:05pmAspiration pneumoniaacuteJanuary 2024 9:05pm COPD exacerbationacuteJanuary 2024 9:05pmDepressionacuteJanuary 2024 9:05pmDiabetes type 2acuteJanuary 2024 9:05pmDyslipidemiaacuteJanuary 2024 9:05pmElevated troponinacuteJanuary 2024 9:05pmHTN (hypertension)acuteJanuary 2024 9:05pmHypotensionacuteJanuary 2024 9:05pmImpaired mobility and activities of daily livingacuteJanuary 2024 9:05pmInfluenza AacuteJanuary 2024 9:05pmTobacco abuseacuteJanuary 2024 9:05pm [facility] Work Phone: 1(145) 894-391301-26-2025 Evaluation note* Diagnosis Onset Date Resolution Status Admit Date Acute hypoxic respiratory failure acuteJanuary 2024 9:05pmCOPD exacerbationacuteJanuary 2024 9:05pm DepressionacuteJanuary 2024 9:05pmDiabetes type 2acuteJanuary 2024 9:05pmDyslipidemiaacuteJanuary 2024 9:05pmElevated troponinacuteJanuary 2024 9:05pmHTN (hypertension)acuteNovuary 2024 9:05pmImpaired mobility and activities of daily livingacuteNovuary 2024 9:05pmInfluenza A acuteJanuary 2024 9:05pmTobacco abuseacuteJanuary 2024 9:05pm Aspiration pneumoniaresolvedNovuary 2024 9:05pmHypotensionresolvedJanuary 2024 9:05pm [facility] Work Phone: 1(147) 685-645011-07-2024 History of Present illness Narrative* Daniel Cardoso, GREG - 09/20/2024 10:53 AM ESTAssociated Problem(s): Type 2 diabetes mellitus without complication, without long-term current useof insulin ([facility]) Currently taking Metformin 500mg Most [...] >11.0 HIGH RISK Resulting Agency [facility] DMII: Most recent labs: hemoglobin A1C [...] List Items Addressed This Visit Other hyperlipidemia ([facility]) Currently taking Atorvastatin 40mg Denies any myalgias. Continue current regimen. Type 2 diabetes mellitus without complication, without long-term current use of insulin ([facility]) Currently taking Metformin 500mg Most [...] Asthma with COPD (chronic obstructive pulmonary disease) ([facility]) Currently taking Trelegy Daily and Albuterol PRN No exacerbations recently Reports using rescue inhaler 3 times per month. Continue current regimen Primary hypertension ([facility]) - Primary Currently taking Losartan-hydrochlorothiazide [...] (Augmentin) 875-125 MG tablet documented in this encounterSt. [facility] [id number] Instructions* Patient Instructions* Daniel Cardoso NP - [...] if you need anything! documented in this [facility]10-29[facility]24 Telephone encounter Note* Telephone Encounter - Sabina Black MA - 09/11/2024 3:30 PM EDT Pt requesting a refill on her mobic, ANETTE:06/21/2024 NOV:09/20/2024 [id number] Miscellaneous Notes* Telephone Encounter - Sabina Black MA - 09/11/2024 3:30 PM EDT Pt requesting a refill on her mobic, ANETTE:06/21/2024 NOV:09/20/2024 [facility] No data available for this section [facility] Diagnosis Iron deficiency anemia due to chronic blood loss- Primary Iron deficiency anemia secondary to blood loss (chronic) Current smoker Other hyperlipidemia (CMS/HCC) Moderate persistent asthma without complication ([facility]) Type 2 diabetes mellitus without complication, without long-term current use of insulin ([facility]) Screening mammogram, encounter for Recurrent major depressive disorder, in full remission ([facility]) Asthma with COPD (chronic obstructive pulmonary disease) ([facility])- Primary Iron deficiency anemia due [...] Asthma with COPD (chronic obstructive pulmonary disease) ([facility]) documented in this encounter [facility] HealthcareEvaluation note* Diagnosis Iron deficiency anemia due to chronic blood loss- Primary Iron deficiency anemia secondary to blood loss (chronic) Current smoker Other hyperlipidemia (CMS/HCC) Moderate persistent asthma without complication ([facility]) Type 2 diabetes mellitus without complication, without long-term current use of insulin ([facility]) Screening mammogram, encounter for Recurrent major depressive disorder, in full remission ([facility]) Asthma with COPD (chronic obstructive pulmonary disease) ([facility]/H[facility])- Primary Iron deficiency anemia due to chronic blood loss Iron deficiency anemia secondary to blood loss (chronic) Type 2 diabetes mellitus without complication, without long-term current use of insulin ([facility]) Primary hypertension (CMS/HCC) Unspecified essential hypertension Asthma with COPD (chronic obstructive pulmonary disease) ([facility])- Primary Primary hypertension ([facility]) Unspecified essential hypertension Type 2 diabetes mellitus without complication, without long-term current use of insulin (CMS/HCC) Primary hypertension (CMS/HCC)- Primary Unspecified essential hypertension Asthma with COPD (chronic obstructive pulmonary disease) ([facility]) Iron deficiency anemia due to chronic blood loss Iron deficiency anemia secondary to blood loss (chronic) Other hyperlipidemia (CMS/HCC) Type 2 diabetes mellitus without complication, without long-term current use of insulin ([facility]) Vitamin D deficiency Dermoid cyst of right ear Tobacco dependency Tobacco use disorder Type 2 diabetes mellitus without complications ([facility]) documented in this encounter [facility] HealthcareEvaluation note* Diagnosis Iron deficiency anemia due to chronic blood loss- Primary Iron deficiency anemia secondary to blood loss (chronic) Current smoker Other hyperlipidemia (CMS/HCC) Moderate persistent asthma without complication (CMS/HCC) Type 2 diabetes mellitus without complication, without long-term current use of insulin ([facility]) Screening mammogram, encounter for Recurrent major depressive disorder, in full remission ([facility]) Asthma with COPD (chronic obstructive pulmonary disease) ([facility])- Primary Iron deficiency anemia due to chronic blood loss Iron deficiency anemia secondary to blood loss (chronic) Type 2 diabetes mellitus without complication, without long-term current use of insulin (CMS/HCC) Primary hypertension (CMS/HCC) Unspecified essential hypertension Asthma with COPD (chronic obstructive pulmonary disease) ([facility])- Primary Primary hypertension ([facility]) Unspecified essential hypertension Type 2 diabetes mellitus without complication, without long-term current use of insulin ([facility]) Primary hypertension ([facility])- Primary Unspecified essential hypertension Asthma with COPD (chronic obstructive pulmonary disease) ([facility]) Iron deficiency anemia due to chronic blood loss Iron deficiency anemia secondary to blood loss (chronic) Other hyperlipidemia (CMS/HCC) Type 2 diabetes mellitus without complication, without long-term current use of insulin ([facility]) Vitamin D deficiency Dermoid cyst of right ear Tobacco dependency Tobacco use disorder Hyperlipidemia, unspecified ([facility]) documented in this encounter [facility] HealthcareEvaluation note* Diagnosis Iron deficiency anemia due to chronic blood loss- Primary Iron deficiency anemia secondary to blood loss (chronic) Current smoker Other hyperlipidemia (CMS/HCC) Moderate persistent asthma without complication ([facility]) Type 2 diabetes mellitus without complication, without long-term current use of insulin ([facility]) Screening mammogram, encounter for Recurrent major depressive disorder, in full remission ([facility]) Asthma with COPD (chronic obstructive pulmonary disease) ([facility])- Primary Iron deficiency anemia due to chronic blood loss Iron deficiency anemia secondary to blood loss (chronic) Type 2 diabetes mellitus without complication, without long-term current use of insulin ([facility]) Primary hypertension ([facility]) Unspecified essential hypertension Asthma with COPD (chronic obstructive pulmonary disease) ([facility])- Primary Primary hypertension ([facility]) Unspecified essential hypertension Type 2 diabetes mellitus without complication, without long-term current use of insulin ([facility]) Primary hypertension ([facility])- Primary Unspecified essential hypertension Asthma with COPD (chronic obstructive pulmonary disease) (CMS/HCC) Iron deficiency anemia due to chronic blood loss Iron deficiency anemia secondary to blood loss (chronic) Other hyperlipidemia (CMS/HCC) Type 2 diabetes mellitus without complication, without long-term current use of insulin ([facility]) Vitamin D deficiency Dermoid cyst of right ear Tobacco dependency Tobacco use disorder Other bursitis of elbow, left elbow documented in this encounter [facility] HealthcareEvaluation note* Diagnosis Iron deficiency anemia due to chronic blood loss- Primary Iron deficiency anemia secondary to blood loss (chronic) Current smoker Other hyperlipidemia (CMS/HCC) Moderate persistent asthma without complication ([facility]) Type 2 diabetes mellitus without complication, without long-term current use of insulin ([facility]) Screening mammogram, encounter for Recurrent major depressive disorder, in full remission ([facility]) Asthma with COPD (chronic obstructive pulmonary disease) ([facility])- Primary Iron deficiency anemia due to chronic blood loss Iron deficiency anemia secondary to blood loss (chronic) Type 2 diabetes mellitus without complication, without long-term current use of insulin ([facility]) Primary hypertension ([facility]) Unspecified essential hypertension Asthma with COPD (chronic obstructive pulmonary disease) ([facility])- Primary Primary hypertension ([facility]) Unspecified essential hypertension Type 2 diabetes mellitus without complication, without long-term current use of insulin ([facility]) Primary hypertension ([facility])- Primary Unspecified essential hypertension Asthma with COPD (chronic obstructive pulmonary disease) ([facility]) Iron deficiency anemia due to chronic blood loss Iron deficiency anemia secondary to blood loss (chronic) Other hyperlipidemia ([facility]) Type 2 diabetes mellitus without complication, without long-term current use of insulin ([facility]) Vitamin D deficiency Dermoid cyst of right ear Tobacco dependency Tobacco use disorder Primary hypertension ([facility])- Primary Unspecified essential hypertension Type 2 diabetes mellitus without complication, without long-term current use of insulin ([facility]) Other hyperlipidemia ([facility]) Asthma with COPD (chronic obstructive pulmonary disease) ([facility]) Non-recurrent acute serous otitis media of left ear documented in this encounter [facility] HealthcareEvaluation note* Diagnosis Other bursitis of elbow, left elbow documented in this encounter [facility] HealthcareEvaluation note* Diagnosis Iron deficiency anemia due to chronic blood loss- Primary Iron deficiency anemia secondary to blood loss (chronic) Current smoker Other hyperlipidemia (CMS/HCC) Moderate persistent asthma without complication ([facility]) Type 2 diabetes mellitus without complication, without long-term current use of insulin ([facility]) Screening mammogram, encounter for Recurrent major depressive disorder, in full remission ([facility]) Asthma with COPD (chronic obstructive pulmonary disease) ([facility])- Primary Iron deficiency anemia due to chronic blood loss Iron deficiency anemia secondary to blood loss (chronic) Type 2 diabetes mellitus without complication, without long-term current use of insulin ([facility]) Primary hypertension ([facility]) Unspecified essential hypertension Asthma with COPD (chronic obstructive pulmonary disease) ([facility])- Primary Primary hypertension ([facility]) Unspecified essential hypertension Type 2 diabetes mellitus without complication, without long-term current use of insulin ([facility]) Primary hypertension ([facility])- Primary Unspecified essential hypertension Asthma with COPD (chronic obstructive pulmonary disease) ([facility]) Iron deficiency anemia due to chronic blood loss Iron deficiency anemia secondary to blood loss (chronic) Other hyperlipidemia ([facility]) Type 2 diabetes mellitus without complication, without long-term current use of insulin ([facility] [facility] Vitamin D deficiency Dermoid cyst of right ear Tobacco dependency Tobacco use disorder Primary hypertension ([facility])- Primary Unspecified essential hypertension Type 2 diabetes mellitus without complication, without long-term current use of insulin ([facility]) Other hyperlipidemia ([facility]) Asthma with COPD (chronic obstructive pulmonary disease) ([facility]) Non-recurrent acute serous otitis media of left ear Gastro-esophageal reflux disease without esophagitis documented in this encounter [facility] HealthcareEvaluation note* Diagnosis Iron deficiency anemia due to chronic blood loss- Primary Iron deficiency anemia secondary to blood loss (chronic) Current smoker Other hyperlipidemia ([facility]/HCC) Moderate persistent asthma without complication ([facility]) Type 2 diabetes mellitus without complication, without long-term current use of insulin ([facility]) Screening mammogram, encounter for Recurrent major depressive disorder, in full remission ([facility]) Asthma with COPD (chronic obstructive pulmonary disease) ([facility])- Primary Iron deficiency anemia due to chronic blood loss Iron deficiency anemia secondary to blood loss (chronic) Type 2 diabetes mellitus without complication, without long-term current use of insulin ([facility]/HCC) Primary hypertension ([facility]) Unspecified essential hypertension Asthma with COPD (chronic obstructive pulmonary disease) ([facility])- Primary Primary hypertension ([facility]) Unspecified essential hypertension Type 2 diabetes mellitus without complication, without long-term current use of insulin ([facility]/HCC) Primary hypertension ([facility]/H[facility])- Primary Unspecified essential hypertension Asthma with COPD (chronic obstructive pulmonary disease) ([facility]/HCC) Iron deficiency anemia due to chronic blood loss Iron deficiency anemia secondary to blood loss (chronic) Other hyperlipidemia ([facility]/HCC) Type 2 diabetes mellitus without complication, without long-term current use of insulin ([facility]) Vitamin D deficiency Dermoid cyst of right ear Tobacco dependency Tobacco use disorder Primary hypertension ([facility]/HCC)- Primary Unspecified essential hypertension Type 2 diabetes mellitus without complication, without long-term current use of insulin ([facility]/HCC) Other hyperlipidemia ([facility]/HCC) Asthma with COPD (chronic obstructive pulmonary disease) ([facility]) Non-recurrent acute serous otitis media of left ear Depression, unspecified ([facility]) documented in this encounter [facility] HealthcareEvaluation note* Diagnosis Iron deficiency anemia due to chronic blood loss- Primary Iron deficiency anemia secondary to blood loss (chronic) documented in this encounter [facility]* Diagnosis Iron deficiency anemia due to chronic blood loss- Primary Iron deficiency anemia secondary to blood loss (chronic) documented in this encounter [facility]* Diagnosis Type 2 diabetes mellitus without complications ([facility]) Hyperlipidemia, unspecified ([facility]/HCC) documented in this encounter [facility]Evaluation [facility]* Diagnosis Hyperlipidemia, unspecified ([facility]/HCC) Other bursitis of elbow, left elbow Depression, unspecified ([facility]) Type 2 diabetes mellitus without complications ([facility]) documented in this encounter [facility]* Diagnosis Iron deficiency anemia due to chronic blood loss- Primary Iron deficiency anemia secondary to blood loss (chronic) Current smoker Other hyperlipidemia ([facility]/HCC) Moderate persistent asthma without complication ([facility]/HCC) Type 2 diabetes mellitus without complication, without long-term current use of insulin ([facility]) Screening mammogram, encounter for Recurrent major depressive disorder, in full remission ([facility]) Asthma with COPD (chronic obstructive pulmonary disease) ([facility])- Primary Iron deficiency anemia due to chronic blood loss Iron deficiency anemia secondary to blood loss (chronic) Type 2 diabetes mellitus without complication, without long-term current use of insulin ([facility]/HCC) Primary hypertension ([facility]/HCC) Unspecified essential hypertension Asthma with COPD (chronic obstructive pulmonary disease) ([facility]/HCC)- Primary Primary hypertension (CMS/HCC) Unspecified essential hypertension [...] current use of insulin ([facility]) Vitamin D deficiency Dermoid cyst of right ear Tobacco dependency Tobacco use disorder Primary hypertension (CMS/HCC)- Primary Unspecified essential hypertension Type 2 diabetes mellitus without complication, without long-term current use of insulin (CMS/HCC) Other hyperlipidemia (CMS/HCC) Asthma with COPD (chronic obstructive pulmonary disease) ([facility]) Non-recurrent acute serous otitis media of left ear Iron deficiency anemia due to chronic blood loss Iron deficiency anemia secondary to blood loss (chronic) documented in this encounter [facility] HealthcareEvaluation note* Diagnosis Iron deficiency anemia due to chronic blood loss- Primary Iron deficiency anemia secondary to blood loss (chronic) Current smoker Other hyperlipidemia (CMS/HCC) Moderate persistent asthma without complication ([facility]) Type 2 diabetes mellitus without complication, without long-term current use of insulin ([facility]) Screening mammogram, encounter for Recurrent major depressive disorder, in full remission ([facility]) Asthma with COPD (chronic obstructive pulmonary disease) ([facility])- Primary Iron deficiency anemia due to chronic blood loss Iron deficiency anemia secondary to blood loss (chronic) Type 2 diabetes mellitus without complication, without long-term current use of insulin ([facility]) Primary hypertension ([facility]/HCC) Unspecified essential hypertension Asthma with COPD (chronic obstructive pulmonary disease) ([facility]/HCC)- Primary Primary hypertension ([facility]/HCC) Unspecified essential hypertension Type 2 diabetes mellitus without complication, without long-term current use of insulin (CMS/HCC) Primary hypertension ([facility]/HCC)- Primary Unspecified essential hypertension Asthma with COPD (chronic obstructive pulmonary disease) ([facility]/HCC) Iron deficiency anemia due to chronic blood loss Iron deficiency anemia secondary to blood loss (chronic) Other hyperlipidemia (CMS/HCC) Type 2 diabetes mellitus without complication, without long-term current use of insulin ([facility]/HCC) Vitamin D deficiency Dermoid cyst of right ear Tobacco dependency Tobacco use disorder Primary hypertension (CMS/HCC)- Primary Unspecified essential hypertension Type 2 diabetes mellitus without complication, without long-term current use of insulin ([facility]) Other hyperlipidemia ([facility]) Asthma with COPD (chronic obstructive pulmonary disease) ([facility]) Non-recurrent acute serous otitis media of left ear Asthma with COPD (chronic obstructive pulmonary disease) ([facility]) documented in this encounter [facility] HealthcareEvaluation note* Diagnosis Iron deficiency anemia due to chronic blood loss- Primary Iron deficiency anemia secondary to blood loss (chronic) Current smoker Other hyperlipidemia ([facility]) Moderate persistent asthma without complication ([facility]) Type 2 diabetes mellitus without complication, without long-term current use of insulin ([facility]) Screening mammogram, encounter for Recurrent major depressive disorder, in full remission ([facility]) Asthma with COPD (chronic obstructive pulmonary disease) ([facility])- Primary Iron deficiency anemia due to chronic blood loss Iron deficiency anemia secondary to blood loss (chronic) Type 2 diabetes mellitus without complication, without long-term current use of insulin ([facility]) Primary hypertension ([facility] Unspecified essential hypertension Asthma with COPD (chronic obstructive pulmonary disease) ([facility])- Primary Primary hypertension ([facility]) Unspecified essential hypertension Type 2 diabetes mellitus without complication, without long-term current use of insulin ([facility]) Primary hypertension ([facility])- Primary Unspecified essential hypertension Asthma with COPD (chronic obstructive pulmonary disease) ([facility]) Iron deficiency anemia due to chronic blood loss Iron deficiency anemia secondary to blood loss (chronic) Other hyperlipidemia ([facility]) Type 2 diabetes mellitus without complication, without long-term current use of insulin ([facility]) Vitamin D deficiency Dermoid cyst of right ear Tobacco dependency Tobacco use disorder Primary hypertension ([facility])- Primary Unspecified essential hypertension Type 2 diabetes mellitus without complication, without long-term current use of insulin ([facility]) Other hyperlipidemia ([facility]) Asthma with COPD (chronic obstructive pulmonary disease) ([facility]) Non-recurrent acute serous otitis media of left ear Iron deficiency anemia due to chronic blood loss Iron deficiency anemia secondary to blood loss (chronic) documented in this encounter [facility] HealthcareEvaluation note* Diagnosis Acute hypoxic respiratory failure ([facility])- Primary Chronic obstructive pulmonary disease, unspecified COPD type ([facility]) Influenza A Influenza with other respiratory manifestations Aspiration pneumonia, unspecified aspiration pneumonia type, unspecified laterality, unspecified part of lung ([facility]) Depression, unspecified depression type Cigarette smoker Tobacco use disorder Type 2 diabetes mellitus without complication, without long-term current use of insulin ([facility]) Anxiety Anxiety state, unspecified documented in this encounter [facility] SystemEvaluation note* Diagnosis Acute hypoxic respiratory failure ([facility])- Primary Chronic obstructive pulmonary disease, unspecified COPD type ([facility]) Influenza A Influenza with other respiratory manifestations Other abnormalities of gait and mobility documented in this encounter [facility] SystemEvaluation note* Diagnosis Acute hypoxic respiratory failure ([facility])- Primary Aspiration pneumonia, unspecified aspiration pneumonia type, unspecified laterality, unspecified part of lung ([facility]) Chronic obstructive pulmonary disease, unspecified COPD type ([facility]) Influenza A Influenza with other respiratory manifestations Type 2 diabetes mellitus without complication, without long-term current use of insulin ([facility]) Other abnormalities of gait and mobility Anxiety Anxiety state, unspecified [facility]* Diagnosis Chronic obstructive pulmonary disease, unspecified COPD type ([facility])- Primary Influenza A Influenza with other respiratory manifestations Other abnormalities of gait and mobility Anxiety Anxiety state, unspecified Cigarette smoker Tobacco use disorder [facility]* Diagnosis Iron deficiency anemia due to chronic blood loss- Primary Iron deficiency anemia secondary to blood loss (chronic) Current smoker Other hyperlipidemia ([facility]) Moderate persistent asthma without complication ([facility]) Type 2 diabetes mellitus without complication, without long-term current use of insulin ([facility]) Screening mammogram, encounter for Recurrent major depressive disorder, in full remission ([facility]) Asthma with COPD (chronic obstructive pulmonary disease) ([facility])- Primary Iron deficiency anemia due to chronic blood loss Iron deficiency anemia secondary to blood loss (chronic) Type 2 diabetes mellitus without complication, without long-term current use of insulin ([facility]) Primary hypertension ([facility]) Unspecified essential hypertension Asthma with COPD (chronic obstructive pulmonary disease) ([facility])- Primary Primary hypertension ([facility]) Unspecified essential hypertension Type 2 diabetes mellitus without complication, without long-term current use of insulin ([facility]) Primary hypertension ([facility])- Primary Unspecified essential hypertension Asthma with COPD (chronic obstructive pulmonary disease) ([facility]) Iron deficiency anemia due to chronic blood [...] COPD type (CMS/HCC) Acute hypoxic respiratory failure ([facility]/HCC) Type 2 diabetes mellitus without complication, without long-term current use of insulin ([facility]/HCC) Primary hypertension ([facility]/HCC) Unspecified essential hypertension 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 ([facility]) documented in this encounter [facility] HealthcareEvaluation note* Diagnosis Iron deficiency anemia due to chronic blood loss- Primary Iron deficiency anemia secondary to blood loss (chronic) Current smoker Other hyperlipidemia (CMS/HCC) Moderate persistent asthma without complication ([facility]/HCC) Type 2 diabetes mellitus without complication, without long-term current use of insulin ([facility]) Screening mammogram, encounter for Recurrent major depressive disorder, in full remission ([facility]) Asthma with COPD (chronic obstructive pulmonary disease) ([facility]/HCC)- Primary Iron deficiency anemia due to chronic blood loss Iron deficiency anemia secondary to blood loss (chronic) Type 2 diabetes mellitus without complication, without long-term current use of insulin ([facility]) Primary hypertension (CMS/HCC) Unspecified essential hypertension Asthma with COPD (chronic obstructive pulmonary disease) ([facility]/HCC)- Primary Primary hypertension ([facility]/HCC) Unspecified essential hypertension Type 2 diabetes mellitus without complication, without long-term current use of insulin (CMS/HCC) Primary hypertension ([facility]/HCC)- Primary Unspecified essential hypertension Asthma with COPD (chronic obstructive pulmonary disease) ([facility]/HCC) Iron deficiency anemia due to chronic blood loss Iron deficiency anemia secondary to blood loss (chronic) Other hyperlipidemia (CMS/HCC) Type 2 diabetes mellitus without complication, without long-term current use of insulin ([facility]/HCC) Vitamin D deficiency Dermoid cyst of right ear Tobacco dependency Tobacco use disorder Primary hypertension (CMS/HCC)- Primary Unspecified essential hypertension Type 2 diabetes mellitus without complication, without long-term current use of insulin ([facility]) Other hyperlipidemia ([facility]) Asthma with COPD (chronic obstructive pulmonary disease) ([facility]) Non-recurrent acute serous otitis media of left ear Influenza A- Primary Influenza with other respiratory manifestations Chronic obstructive pulmonary disease, unspecified COPD type ([facility]) Acute hypoxic respiratory failure ([facility]) Type 2 diabetes mellitus without complication, without long-term current use of insulin ([facility]) Primary hypertension ([facility]) Unspecified essential hypertension Benign neoplasm of cranial nerves ([facility]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 ([facility]) Scalp laceration, sequela- Primary Cigarette nicotine dependence without complication COPD exacerbation ([facility]) Obstructive chronic bronchitis with exacerbation documented in this encounter [facility] HealthcareEvaluation note* Diagnosis Iron deficiency anemia due to chronic blood loss- Primary Iron deficiency anemia secondary to blood loss (chronic) Current smoker Other hyperlipidemia ([facility]) Moderate persistent asthma without complication ([facility]) Type 2 diabetes mellitus without complication, without long-term current use of insulin ([facility]) Screening mammogram, encounter for Recurrent major depressive disorder, in full remission ([facility]) Asthma with COPD (chronic obstructive pulmonary disease) ([facility])- Primary Iron deficiency anemia due to chronic blood loss Iron deficiency anemia secondary to blood loss (chronic) Type 2 diabetes mellitus without complication, without long-term current use of insulin ([facility]) Primary hypertension ([facility]) Unspecified essential hypertension Asthma with COPD (chronic obstructive pulmonary disease) ([facility])- Primary Primary hypertension ([facility]) Unspecified essential hypertension Type 2 diabetes mellitus without complication, without long-term current use of insulin ([facility]) Primary hypertension ([facility])- Primary Unspecified essential hypertension Asthma with COPD (chronic obstructive pulmonary disease) ([facility]) Iron deficiency anemia due to chronic blood loss Iron deficiency anemia secondary to blood loss (chronic) Other hyperlipidemia ([facility]) Type 2 diabetes mellitus without complication, without long-term current use of insulin ([facility]) Vitamin D deficiency Dermoid cyst of right ear Tobacco dependency Tobacco use disorder Primary hypertension ([facility])- Primary Unspecified essential hypertension Type 2 diabetes mellitus without complication, without long-term current use of insulin ([facility]) Other hyperlipidemia ([facility]) Asthma with COPD (chronic obstructive pulmonary disease) ([facility]) Non-recurrent acute serous otitis media of left ear Influenza A- Primary Influenza with other respiratory manifestations Chronic obstructive pulmonary disease, unspecified COPD type ([facility]) Acute hypoxic respiratory failure ([facility]) Type 2 diabetes mellitus without complication, without long-term current use of insulin ([facility]) Primary hypertension ([facility]) Unspecified essential hypertension Benign neoplasm of cranial nerves ([facility]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 ([facility]) Scalp laceration, sequela- Primary Cigarette nicotine dependence without complication COPD exacerbation ([facility]) Obstructive chronic bronchitis with exacerbation Type 2 diabetes mellitus without complication, without long-term current use of insulin ([facility])- Primary Chronic obstructive pulmonary disease, unspecified COPD type ([facility]) Primary hypertension ([facility]) Unspecified essential hypertension Vitamin D deficiency Iron deficiency anemia due to chronic blood loss Iron deficiency anemia secondary to blood loss (chronic) Cigarette nicotine dependence without complication Recurrent major depressive disorder, in full remission ([facility]) Generalized anxiety disorder ([facility]) Generalized anxiety disorder Screening mammogram, encounter for Other hyperlipidemia ([facility]) Acute hypoxic respiratory failure ([facility]) documented in this encounter [facility] HealthcareEvaluation note* Diagnosis Iron deficiency anemia due to chronic blood loss- Primary Iron deficiency anemia secondary to blood loss (chronic) Current smoker Other hyperlipidemia Moderate persistent asthma without complication ([facility]) Type 2 diabetes mellitus without complication, without long-term current use of insulin Screening mammogram, encounter for Recurrent major depressive disorder, in full remission ([facility]) Asthma with COPD (chronic obstructive pulmonary disease) ([facility])- Primary Iron deficiency anemia due to chronic blood loss Iron deficiency anemia secondary to blood loss (chronic) Type 2 diabetes mellitus without complication, without long-term current use of insulin Primary hypertension ([facility]) Unspecified essential hypertension Asthma with COPD (chronic obstructive pulmonary disease) ([facility])- Primary Primary hypertension ([facility]) Unspecified essential hypertension Type 2 diabetes mellitus without complication, without long-term current use of insulin Primary hypertension ([facility])- Primary Unspecified essential hypertension Asthma with COPD (chronic obstructive pulmonary disease) ([facility]) Iron deficiency anemia due to chronic blood loss Iron deficiency anemia secondary to blood loss (chronic) Other hyperlipidemia Type 2 diabetes mellitus without complication, without long-term current use of insulin Vitamin D deficiency Dermoid cyst of right ear Tobacco dependency Tobacco use disorder Primary hypertension ([facility])- Primary Unspecified essential hypertension Type 2 diabetes mellitus without complication, without long-term current use of insulin Other hyperlipidemia Asthma with COPD (chronic obstructive pulmonary disease) ([facility]) Non-recurrent acute serous otitis media of left ear Influenza A- Primary Influenza with other respiratory manifestations Chronic obstructive pulmonary disease, unspecified COPD type ([facility]) Acute hypoxic respiratory failure ([facility]) Type 2 diabetes mellitus without complication, without long-term current use of insulin Primary hypertension ([facility]) Unspecified essential hypertension Benign neoplasm of cranial nerves ([facility]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 ([facility]) Scalp laceration, sequela- Primary Cigarette nicotine dependence without complication COPD exacerbation ([facility]) Obstructive chronic bronchitis with exacerbation Type 2 diabetes mellitus without complication, without long-term current use of insulin- Primary Chronic obstructive pulmonary disease, unspecified COPD type ([facility]) Primary hypertension ([facility]) Unspecified essential hypertension Vitamin D deficiency Iron deficiency anemia due to chronic blood loss Iron deficiency anemia secondary to blood loss (chronic) Cigarette nicotine dependence without complication Recurrent major depressive disorder, in full remission ([facility]) Generalized anxiety disorder ([facility]) Generalized anxiety disorder Screening mammogram, encounter for Other hyperlipidemia Acute hypoxic respiratory failure ([facility]) Elevated TSH Other abnormal blood chemistry documented in this encounter [facility] HealthcareEvaluation note* Diagnosis Iron deficiency anemia due to chronic blood loss- Primary Iron deficiency anemia secondary to blood loss (chronic) Current smoker Other hyperlipidemia Moderate persistent asthma without complication ([facility]) Type 2 diabetes mellitus without complication, without long-term current use of insulin Screening mammogram, encounter for Recurrent major depressive disorder, in full remission ([facility]) Asthma with COPD (chronic obstructive pulmonary disease) ([facility])- Primary Iron deficiency anemia due to chronic blood loss Iron deficiency anemia secondary to blood loss (chronic) Type 2 diabetes mellitus without complication, without long-term current use of insulin Primary hypertension ([facility]) Unspecified essential hypertension Asthma with COPD (chronic obstructive pulmonary disease) ([facility])- Primary Primary hypertension ([facility]) Unspecified essential hypertension Type 2 diabetes mellitus without complication, without long-term current use of insulin Primary hypertension ([facility])- Primary Unspecified essential hypertension Asthma with COPD (chronic obstructive pulmonary disease) ([facility]CC) Iron deficiency anemia due to chronic blood loss Iron deficiency anemia secondary to blood loss (chronic) Other hyperlipidemia Type 2 diabetes mellitus without complication, without long-term current use of insulin Vitamin D deficiency Dermoid cyst of right ear Tobacco dependency Tobacco use disorder Primary hypertension ([facility])- Primary Unspecified essential hypertension Type 2 diabetes mellitus without complication, without long-term current use of insulin Other hyperlipidemia Asthma with COPD (chronic obstructive pulmonary disease) ([facility]) Non-recurrent acute serous otitis media of left ear Influenza A- Primary Influenza with other respiratory manifestations Chronic obstructive pulmonary disease, unspecified COPD type ([facility]/HCC) Acute hypoxic respiratory failure ([facility]) Type 2 diabetes mellitus without complication, without long-term current use of insulin Primary hypertension ([facility]) Unspecified essential hypertension Benign neoplasm of cranial nerves ([facility]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 ([facility]) Scalp laceration, sequela- Primary Cigarette nicotine dependence without complication COPD exacerbation ([facility]) Obstructive chronic bronchitis with exacerbation Type 2 diabetes mellitus without complication, without long-term current use of insulin- Primary Chronic obstructive pulmonary disease, unspecified COPD type ([facility]) Primary hypertension ([facility]) Unspecified essential hypertension Vitamin D deficiency Iron deficiency anemia due to chronic blood loss Iron deficiency anemia secondary to blood loss (chronic) Cigarette nicotine dependence without complication Recurrent major depressive disorder, in full remission ([facility]) Generalized anxiety disorder ([facility]) Generalized anxiety disorder Screening mammogram, encounter for Other hyperlipidemia Acute hypoxic respiratory failure ([facility]) Iron deficiency anemia due to chronic blood loss Iron deficiency anemia secondary to blood loss (chronic) documented in this encounter [facility] HealthcareEvaluation note* Diagnosis Iron deficiency anemia due to chronic blood loss- Primary Iron deficiency anemia secondary to blood loss (chronic) Current smoker Other hyperlipidemia Moderate persistent asthma without complication ([facility]) Type 2 diabetes mellitus without complication, without long-term current use of insulin Screening mammogram, encounter for Recurrent major depressive disorder, in full remission ([facility]) Asthma with COPD (chronic obstructive pulmonary disease) ([facility])- Primary Iron deficiency anemia due to chronic blood loss Iron deficiency anemia secondary to blood loss (chronic) Type 2 diabetes mellitus without complication, without long-term current use of insulin Primary hypertension ([facility]) Unspecified essential hypertension Asthma with COPD (chronic obstructive pulmonary disease) ([facility]/HCC)- Primary Primary hypertension (CMS/HCC) Unspecified essential hypertension Type 2 diabetes mellitus without complication, without long-term current use of insulin Primary hypertension ([facility])- Primary Unspecified essential hypertension Asthma with COPD (chronic obstructive pulmonary disease) ([facility]) Iron deficiency anemia due to chronic blood loss Iron deficiency anemia secondary to blood loss (chronic) Other hyperlipidemia Type 2 diabetes mellitus without complication, without long-term current use of insulin Vitamin D deficiency Dermoid cyst of right ear Tobacco dependency Tobacco use disorder Primary hypertension ([facility])- Primary Unspecified essential hypertension Type 2 diabetes mellitus without complication, without long-term current use of insulin Other hyperlipidemia Asthma with COPD (chronic obstructive pulmonary disease) ([facility]) Non-recurrent acute serous otitis media of left ear Influenza A- Primary Influenza with other respiratory manifestations Chronic obstructive pulmonary disease, unspecified COPD type ([facility]CC) Acute hypoxic respiratory failure ([facility]) Type 2 diabetes mellitus without complication, without long-term current use of insulin Primary hypertension ([facility]) Unspecified essential hypertension Benign neoplasm of cranial nerves ([facility]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 ([facility]) Scalp laceration, sequela- Primary Cigarette nicotine dependence without complication COPD exacerbation ([facility]) Obstructive chronic bronchitis with exacerbation Type 2 diabetes mellitus without complication, without long-term current use of insulin- Primary Chronic obstructive pulmonary disease, unspecified COPD type ([facility]/HCC) Primary hypertension ([facility]) Unspecified essential hypertension Vitamin D deficiency Iron deficiency anemia due to chronic blood loss Iron deficiency anemia secondary to blood loss (chronic) Cigarette nicotine dependence without complication Recurrent major depressive disorder, in full remission ([facility]) Generalized anxiety disorder ([facility]) Generalized anxiety disorder Screening mammogram, encounter for Other hyperlipidemia Acute hypoxic respiratory failure ([facility]/HCC) Asthma with COPD (chronic obstructive pulmonary disease) ([facility]) Chronic obstructive pulmonary disease, unspecified COPD type ([facility]/HCC) documented in this encounter [facility] HealthcareEvaluation note* Diagnosis Iron deficiency anemia due to chronic blood loss- Primary Iron deficiency anemia secondary to blood loss (chronic) Current smoker Other hyperlipidemia Moderate persistent asthma without complication ([facility]) Type 2 diabetes mellitus without complication, without long-term current use of insulin Screening mammogram, encounter for Recurrent major depressive disorder, in full remission ([facility]/HCC) Asthma with COPD (chronic obstructive pulmonary disease) (CMS/HCC)- Primary Iron deficiency anemia due to chronic blood loss Iron deficiency anemia secondary to blood loss (chronic) Type 2 diabetes mellitus without complication, without long-term current use of insulin Primary hypertension ([facility]/HCC) Unspecified essential hypertension Asthma with COPD (chronic obstructive pulmonary disease) ([facility]/HCC)- Primary Primary hypertension (CMS/HCC) Unspecified essential hypertension Type 2 diabetes mellitus without complication, without long-term current use of insulin Primary hypertension ([facility]/HCC)- Primary Unspecified essential hypertension Asthma with COPD (chronic obstructive pulmonary disease) ([facility]/HCC) Iron deficiency anemia due to chronic blood loss Iron deficiency anemia secondary to blood loss (chronic) Other hyperlipidemia Type 2 diabetes mellitus without complication, without long-term current use of insulin Vitamin D deficiency Dermoid cyst of right ear Tobacco dependency Tobacco use disorder Primary hypertension ([facility]/HCC)- Primary Unspecified essential hypertension Type 2 diabetes mellitus without complication, without long-term current use of insulin Other hyperlipidemia Asthma with COPD (chronic obstructive pulmonary disease) ([facility]) Non-recurrent acute serous otitis media of left ear Influenza A- Primary Influenza with other respiratory manifestations Chronic obstructive pulmonary disease, unspecified COPD type ([facility]/HCC) Acute hypoxic respiratory failure ([facility]) Type 2 diabetes mellitus without complication, without long-term current use of insulin Primary hypertension ([facility]) Unspecified essential hypertension 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 ([facility]) Scalp laceration, sequela- Primary Cigarette nicotine dependence without complication COPD exacerbation ([facility]) Obstructive chronic bronchitis with exacerbation Type 2 diabetes mellitus without complication, without long-term current use of insulin- Primary Chronic obstructive pulmonary disease, unspecified COPD type ([facility]/HCC) Primary hypertension ([facility]) Unspecified essential hypertension Vitamin D deficiency Iron deficiency anemia due to chronic blood loss Iron deficiency anemia secondary to blood loss (chronic) Cigarette nicotine dependence without complication Recurrent major depressive disorder, in full remission ([facility]/HCC) Generalized anxiety disorder ([facility]) Generalized anxiety disorder Screening mammogram, encounter for Other hyperlipidemia Acute hypoxic respiratory failure ([facility]/HCC) Acquired hypothyroidism ([facility]/HCC)- Primary Unspecified hypothyroidism documented in this encounter [facility] HealthcareEvaluation note* Diagnosis Iron deficiency anemia due [...] Tobacco dependency Tobacco use disorder Primary hypertension ([facility]/HCC)- Primary Unspecified essential hypertension Type 2 diabetes mellitus without complication, without long-term current use of insulin Other hyperlipidemia Asthma with COPD (chronic obstructive pulmonary disease) ([facility]/HCC) Non-recurrent acute serous otitis media of left ear Influenza A- Primary Influenza with other respiratory manifestations Chronic obstructive pulmonary disease, unspecified COPD type (CMS/HCC) Acute hypoxic respiratory failure ([facility]) Type 2 diabetes mellitus without complication, without long-term current use of insulin Primary hypertension ([facility]/HCC) Unspecified essential hypertension 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 ([facility]) Scalp laceration, sequela- Primary Cigarette nicotine dependence without complication COPD exacerbation (CMS/HCC) Obstructive chronic bronchitis with exacerbation Type 2 diabetes mellitus without complication, without long-term current use of insulin- Primary Chronic obstructive pulmonary disease, unspecified COPD type (CMS/HCC) Primary hypertension ([facility]/HCC) Unspecified essential hypertension Vitamin D deficiency Iron deficiency anemia due to chronic blood loss Iron deficiency anemia secondary to blood loss (chronic) Cigarette nicotine dependence without complication Recurrent major depressive disorder, in full remission (CMS/HCC) Generalized anxiety disorder (CMS/HCC) Generalized anxiety disorder Screening mammogram, encounter for Other hyperlipidemia Acute hypoxic respiratory failure ([facility]/HCC) Depression, unspecified (CMS/HCC) documented in this encounter [facility] HealthcareEvaluation note* Diagnosis Iron deficiency anemia due to chronic blood loss- Primary Iron deficiency anemia secondary to blood loss (chronic) Current smoker Other hyperlipidemia Moderate persistent asthma without complication ([facility]/HCC) Type 2 diabetes mellitus without complication, without long-term current use of insulin Screening mammogram, encounter for Recurrent major depressive disorder, in full remission ([facility]) Asthma with COPD (chronic obstructive pulmonary disease) ([facility])- Primary Iron deficiency anemia due to chronic blood loss Iron deficiency anemia secondary to blood loss (chronic) Type 2 diabetes mellitus without complication, without long-term current use of insulin Primary hypertension ([facility]/HCC) Unspecified essential hypertension Asthma with COPD (chronic obstructive pulmonary disease) ([facility])- Primary Primary hypertension ([facility]/HCC) Unspecified essential hypertension Type 2 diabetes mellitus without complication, without long-term current use of insulin Primary hypertension ([facility])- Primary Unspecified essential hypertension Asthma with COPD (chronic obstructive pulmonary disease) ([facility]) Iron deficiency anemia due to chronic blood loss Iron deficiency anemia secondary to blood loss (chronic) Other hyperlipidemia Type 2 diabetes mellitus without complication, without long-term current use of insulin Vitamin D deficiency Dermoid cyst of right ear Tobacco dependency Tobacco use disorder Primary hypertension ([facility]/HCC)- Primary Unspecified essential hypertension Type 2 diabetes mellitus without complication, without long-term current use of insulin Other hyperlipidemia Asthma with COPD (chronic obstructive pulmonary disease) ([facility]) Non-recurrent acute serous otitis media of left ear Influenza A- Primary Influenza with other respiratory manifestations Chronic obstructive pulmonary disease, unspecified COPD type ([facility]) Acute hypoxic respiratory failure ([facility]) Type 2 diabetes mellitus without complication, without long-term current use of insulin Primary hypertension ([facility]/HCC) Unspecified essential hypertension 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 ([facility]) Scalp laceration, sequela- Primary Cigarette nicotine dependence without complication COPD exacerbation ([facility]) Obstructive chronic bronchitis with exacerbation Type 2 diabetes mellitus without complication, without long-term current use of insulin- Primary Chronic obstructive pulmonary disease, unspecified COPD type ([facility]/HCC) Primary hypertension ([facility]) Unspecified essential hypertension Vitamin D deficiency Iron deficiency anemia due to chronic blood loss Iron deficiency anemia secondary to blood loss (chronic) Cigarette nicotine dependence without complication Recurrent major depressive disorder, in full remission ([facility]) Generalized anxiety disorder (CMS/HCC) Generalized anxiety disorder Screening mammogram, encounter for Other hyperlipidemia Acute hypoxic respiratory failure (CMS/[facility]) Osteoarthritis, unspecified osteoarthritis type, unspecified site- Primary documented in this encounter [facility] HealthcareEvaluation note* Diagnosis Iron deficiency anemia due [...] pulmonary disease) (HCC) documented in this encounter [facility] HealthcareEvaluation note* Diagnosis Iron deficiency anemia due [...] esophagitis Depression, unspecified documented in this encounter [facility] HealthcareEvaluation note* Diagnosis Iron deficiency anemia due [...] COPD type (HCC) documented in this encounter [facility] HealthcareEvaluation note* Diagnosis Iron deficiency anemia due [...] abnormal blood chemistry documented in this encounter [facility] HealthcareEvaluation note* Diagnosis Iron deficiency anemia due [...] major depressive disorder, in full remissionacuteSept2024 10:36am [facility] Work Phone: Hospital Discharge instructions No data available for this section [facility] instructionsAmbulatory Orders* Referral to Wound Care Time Frame: 08/22/25, Location: None [facility] Work Phone: InstructionsNot on filedocumented in this encounter [facility]ructionsNot on filedocumented in this encounter [facility] SystemInstructionsNot on filedocumented in this encounter [facility] SystemProgress note No data available for this section [facility] HospitalReason for referral (narrative)* Consultation (Routine) - Pending ReviewSpecialtyDiagnoses / ProceduresReferred By Contact Referred To ContactGastroenterology Diagnoses Iron deficiency anemia due to chronic blood loss Procedures ND OFFICE/OUTPATIENT NEW HIGH MDM 60 MINUTES Daniel Cardoso, GREG [address] [place] [id number] Referral IDStatusReasonStart DateExpiration DateVisits RequestedVisits [id number] Review Specialty Services Required / SONI Granger for referral (narrative)No reason for referral information availableCommunity [facility] Center Work Phone: Summary Purpose Family [...] +, Exacerbation COPD December 13, 2024 12:54pm [facility] 12/09January 04, 2025 8:55am Reason for Visit [...] Admit Date Edema of both lower extremities [facility] 2024 10:36am Elevated TSH July 31, 2025 [...] Admit Date Edema of both lower extremities [facility] 2024 10:36am Elevated TSH July 31, 2025 [...] Admit Date Edema of both lower extremities [facility] 2024 10:36am Elevated TSH July 31, 2025 [...] section and content) DATE CREATED AUTHOR 10/22/2018 [employer] DATE CREATED AUTHOR AUTHOR'S ORGANIZ ATION 01/09/2023 [facility] DATE CREATED AUTHOR AUTHOR'S ORGANIZ ATION 12/17/2023 [facility] DATE CREATED AUTHOR AUTHOR'S ORGANIZ ATION 12/17/2024 [facility] DATE CREATED AUTHOR AUTHOR'S ORGANIZ ATION 06/28/2025 [facility] DATE CREATED AUTHOR AUTHOR'S ORGANIZ ATION 07/20/2025 [facility] Patient Care team informatio n (unrecognized section and content) Team MemberRelationshipSpecialtyStart DateEnd Date Shaikh Sánchez MD [address] [place] [address] PCP - Linda HI11/14/23 Shaikh Sánchez MD [address] [place] [address] PCP - GeneralInternal Medicine01/16/24 Zamzam Wheeler [place] [employer] [address] [place] [address] Nurse PractitionerInternal Medicine01/16/24 Kirstin Carreon LPN Licensed Practical NurseFamily Medicine07/27/24Team MemberRelationshipSpecialty Start DateEnd Date Shaikh Sánchez MD [address] [place] [address] PCP - Linda MORALES11/14/23 Ian Soares MD [address] [place] [address] PCP - GeneralFamily Ucoxmalb17/29/24 Zamzam Wheeler NP [address] [place] [address] Nurse PractitionerInternal Medicine01/16/24 Kirstin Carreon LPN Licensed Practical NurseFamily Medicine07/27/24 Daniel Cardoso NP [address] [place] [address] Nurse PractitionerFamily Sqlzfigo99/29/24Team MemberRelationshipSpecialtyStart DateEnd Date Shaikh Sánchez MD [address] [place] [address] PCP - Linda MORALES11/14/23 Ian Soares MD [address] [place] [address] PCP - GeneralFamily Kpuvaftk20/29/24 Zamzam Wheeler NP [address] [place] [address] Nurse PractitionerInternal Medicine01/16/24 Kirstin Carreon LPN Licensed Practical NurseFamily Medicine07/27/24 Daniel Cardoso, GREG [address] [place] [address] Nurse PractitionerFamily Ngktqemx67/29/24Team MemberRelationshipSpecialtyStart DateEnd Date Shaikh Sánchez MD [address] [place] [address] PCP - Troup MA11/14/23 Ian Soares MD [address] [place] [address] PCP - GeneralFamily Flmnicef87/29/24 Zamzam Wheeler NP [address] [place] [address] Nurse PractitionerInternal Medicine01/16/24 Kirstin Carreon LPN Licensed Practical NurseFamily Medicine07/27/24 Daniel Cardoso, GREG [address] [place] [address] Nurse PractitionerFamily Psocreuh99/29/24Team MemberRelationshipSpecialtyStart DateEnd Date Shaikh Sánchez MD [address] [place] [address] PCP - Lnida MORALES11/14/23 Ian Soares MD [address] [place] [address] PCP - GeneralFamily Fqtymjwk44/29/24 Zamzam Wheeler, [place] [employer] [address] [place] [address] Nurse PractitionerInternal Medicine01/16/24 Kirstin Carreon LPN Licensed Practical NurseFamily Medicine07/27/24 Daniel Cardoso, GREG [address] [place] [address] Nurse PractitionerFamily Brspurci93/29/24Team MemberRelationshipSpecialtyStart DateEnd Date Shaikh Sánchez MD [address] [place] [address] PCP - Linda HI11/14/23 Shaikh Sánchez MD [address] [place] [address] PCP - GeneralInternal Medicine01/16/24 Zamzam Wheeler, [place] [employer] [address] [place] [address] Nurse PractitionerInternal Medicine01/16/24 Gustavo Romero LPN Licensed Practical NurseFamily Medicine07/04/24Team MemberRelationshipSpecialty Start DateEnd Date Shaikh Sánchez MD [address] [place] [address] PCP - Troup HI11/14/23 Ian Soares MD [address] [place] [address] PCP - GeneralFamily Zhcsdzwl05/29/24 Zamzam Wheeler, [place] [employer] [address] [place] [address] Nurse PractitionerInternal Medicine01/16/24 Daniel Cardoso NP [address] [place] [address] Nurse PractitionerFamily Mkmyvdsw29/29/24 Arturo Chanel [facility]09/24/24Team MemberRelationshipSpecialtyStart DateEnd Date Shaikh Sánchez MD [address] [place] [address] PCP - Linda HI11/14/23 Shaikh Sánchez MD [address] [place] [address] PCP - GeneralInternal Medicine01/16/24 Zamzam Wheeler, [place] [employer] [address] [place] [address] Nurse PractitionerInternal Medicine01/16/24 Gusatvo Romero LPN Licensed Practical NurseFamily Medicine07/04/24Team MemberRelationshipSpecialty Start DateEnd Date Shaikh Sánchez MD [address] [place] [address] PCP - Linda HI11/14/23 Shaikh Sánchez MD [address] [place] [address] PCP - GeneralInternal Medicine01/16/24 Zamzam Wheeler, [place] [employer] [address] [place] [address] Nurse PractitionerInternal Medicine01/16/24 Gustavo Romero LPN Licensed Practical NurseFamily Medicine07/04/24Team MemberRelationshipSpecialty Start DateEnd Date Shaikh Sánchez MD [address] [place] [address] PCP - Linda HI11/14/23 Shaikh Sánchez MD [address] [place] [address] PCP - GeneralLifepoint Hospitals01/16/24 Zamzam Wheeler [place] [employer] [address] [place] [id number] Nurse PractitionerCopper Springs East Hospitalnal [facility]01/16/24 Gustavo Romero LPN Licensed Practical NurseFamily [facility]07/04/24Team MemberRelationshipSpecialty Start DateEnd Date Shaikh Sánchez MD [address] [place] [address] PCP - Linda HI11/14/23 Shaikh Sánchez MD [address] [place] [address] PCP - GeneralInternal Medicine01/16/24 Zamzam Wheeler, GREG [address] [place] [address] Nurse PractitionerInternal Medicine01/16/24 Kirstin Carreon LPN Licensed Practical NurseFamily Medicine07/27/24Team MemberRelationshipSpecialty Start DateEnd Date Shaikh Sánchez MD [address] [place] [address] PCP - Linda HI11/14/23 Ian Soares MD [address] [place] [address] PCP - GeneralFamily Tyvomohx56/29/24 Zamzam Wheeler NP [address] [place] [address] Nurse PractitionerInternal Medicine01/16/24 Daniel Cardoso NP [address] [place] [address] Nurse PractitionerFamily Lqlsfnmm31/29/24 Arturo Chanel MA Family Tfauktxn30/11/24Team MemberRelationshipSpecialtyStart DateEnd Date Shaikh Sánchez MD [address] [place] [address] PCP - Linda HI11/14/23 Ian Soares MD [address] [place] [address] PCP - GeneralFamily Vfzjwovf17/29/24 Zamzam Wheeler NP [address] [place] [address] Nurse PractitionerInternal Medicine01/16/24 Daniel Cardoso NP [address] [place] [address] [facility] [place]09/11/24 Arturo Chanel MA [facility]09/24/24Team MemberRelationshipSpecialtyStart DateEnd Date Shaikh Sánchez MD [address] [place] [address] PCP - [facility]11/14/23 Ian Soares MD [address] [place] [address] PCP - GeneralChi [facility] [place]09/11/24 Zamzam Wheeler NP [address] [place] [address] Nurse PractitionerInternal [facility]01/16/24 Daniel Cardoso NP [address] [place] [address] Nurse PractitionerFaEvans Memorial Hospital09/11/24 Arturo Chanel MA [facility] [place]09/24/24 Team Status: Active Member Role Status Dates LINDA FrancoisC Primary Care Provider Ac tive Team Status: Inactive Member Role Status Dates Daniel Cardoso [employer] [place] [employer]-[place] Primary Care Provider Ac tive Start: December [...] Member Role Status Dates Daniel Cardoso , [employer] [place] [employer] Primary Care Provider Ac tive Start: December [...] DateEnd Date Gianna Isabel MD PCP - GeneralMyrtue Medical Centerly Medicine02/07/17 Team Status: Inactive Member Role Status Dates Daniel Cardoso , [employer] [place] [employer] Primary Care Provider Ac tive Start: December [...] Active Member Role Status Dates Daniel Cardoso [employer] [place] [employer]-[place] Primary Care Provider Ac tive Start: December 10, 2024 Neville Wakeifeld ProviderActiveStart: December 10, 2024 Team Status: Active Member Role Status Dates Daniel Cardoso [employer] [place] [employer]-[place] Primary Care Provider Ac tive Start: December [...] Inactive Member Role Status Dates Daniel Cardoso [employer] [place] [employer] Primary Care Provider Ac tive Start: January 04, 2025 End: January 04, 2025Huang Hinkle ProviderActiveStart: January 04, 2025 End: January 04, 2025Team MemberRelationshipSpecialtyStart DateEnd Date Ian Soares MD [address] [place] [address] PCP - GeneralSaint [facility]'S Home Wnifktyy24/29/24 Zamzam Wheeler NP Nurse PractitionerLifepoint Hospitals01/16/24 Daniel Cardoso NP [address] [place] [address] Nurse PractitionerChi [facility] [place]09/11/24 [facility]09/24/24Team MemberRelationshipSpecialtyStart DateEnd Date Ian Soares MD [address] [place] [address] PCP - [facility]09/11/24 Zamzam Wheeler NP Nurse PractitionerLifepoint Hospitals01/16/24 Daniel Cardoso NP [address] [place] [address] Nurse PractitionerChi [facility] [place]09/11/24 [facility]09/24/24Team MemberRelationshipSpecialtyStart DateEnd Date Shaikh Sánchez MD [address] [place] [address] PCP - [facility]11/14/23 Ian Soares MD [address] [place] [address] PCP - [facility]09/11/24 Zamzam Wheeler NP [address] [place] [address] Nurse PractitionerInternal Medicine01/16/24 Daniel Cardoso NP [address] [place] [address] Nurse PractitionerFamily Myncgqzr32/29/24 Arturo Chanel MA [facility] [place]09/24/24Team MemberRelationshipSpecialtyStart DateEnd Date Shaikh Sánchez MD [address] [place] [address] PCP - [place] HI11/14/23 Ian Soares MD [address] [place] [address] PCP - Generalmily Kfftksqo76/29/24 Zamzam Wheeler NP [address] [place] [address] Nurse PractitionerInternal Medicine01/16/24 Daniel Cardoso NP [address] [place] [address] Nurse PractitionerFanyly Ekwpyluv14/29/24 Arturo Chanel MA [facility] [place]09/24/24Team MemberRelationshipSpecialtyStart DateEnd Date Shaikh Sánchez MD [address] [place] [address] PCP - Linda HI11/14/23 Ian Soares MD [address] [place] [address] PCP - GeneralFamily Rgznwlin23/29/24 Zamzam Wheeler NP [address] [place] [address] Nurse PractitionerInternal [facility]01/16/24 Arturo Chanel, CARMEN [facility] [place]09/24/24 La Pack NP [address] [place] [address] Nurse PractitionerSaint Monica'S Home Medicine02/06/25Team MemberRelationshipSpecialtyStart DateEnd Date Shaikh Sánchez MD [address] [place] [address] PCP - [facility]11/14/23 Ian Soares MD [address] [place] [address] PCP - GeneralMyrtue Medical Centerly Aeidsjlh70/29/24 Zamzam Wheeler NP [address] [place] [address] Nurse PractitionerInternal Medicine01/16/24 Arturo Chanel, [facility]09/24/24 La Pack NP [address] [place] [address] Nurse PractitionerChi [facility] [place]02/06/25Te MemberRelationshipSpecialtyStart DateEnd Date Shaikh Sánchez MD [address] [place] [address] PCP - Linda HI11/14/23 Ian Soares MD [address] [place] [address] PCP - GeneralFamily Mfivisdn74/29/24 Zamzam Wheeler, [place] [employer] [address] [place] [address] Nurse PractitionerInternal Medicine01/16/24 Arturo Chanel, CARMEN [facility] [place]09/24/24 La Pack NP [address] [place] [address] Nurse Practitionermily Medicine02/06/25Team MemberRelationshipSpecialtyStart DateEnd Date Shaikh Sánchez MD [address] [place] [address] PCP - Linda HI11/14/23 Ian Soares MD [address] [place] [address] PCP - GeneralFamily Arswcnjr91/29/24 Zamzam Wheeler [employer] [employer] [address] [place] [address] Nurse PractitionerInternal Medicine01/16/24 Arturo Chanel, CARMEN [facility] [place]09/24/24 La Pack NP [address] [place] [address] Nurse PractitionerFami Medicine02/06/25Team MemberRelationshipSpecialtyStart DateEnd Date Shaikh Sánchez MD [address] [place] [address] PCP - Linda HI11/14/23 Ian Soares MD [address] [place] [address] PCP - GeneralSaint [facility]'S Home Lafhcxcm16/29/24 Zamzam Wheeler NP [address] [place] [address] Nurse PractitionerInternal Medicine01/16/24 Arturo Chanel [facility]09/24/24 La Pack NP [address] [place] [address] Nurse PractitionerChi [facility] [place]02/06/25Team MemberRelationshipSpecialtyStart DateEnd Date Shaikh Sánchez MD [address] [place] [address] PCP - Linda HI11/14/23 Ian Soares MD [address] [place] [address] PCP - GeneralSaint [facility]'S Home Pyzpxpcg51/29/24 Zamzam Wheeler [place] [employer] [address] [place] [address] Nurse PractitionerCopper Springs East Hospitalnal Medicine01/16/24 Arturo Chanel MA Family Naecdxfn01/11/24 La Pack, GREG [address] [place] [address] Nurse PractitionerFamily Medicine02/06/25Team MemberRelationshipSpecialtyStart DateEnd Date Shaikh Sánchez MD [address] [place] [address] PCP - Linda HI11/14/23 Ian Soares MD [address] [place] [address] PCP - GeneralFamily Idbudhdq61/29/24 Zamzam Wheeler NP [address] [place] [address] Nurse [facility] Medicine01/16/24 Arturo Chanel MA [facility] [place]09/24/24 La Pack, GREG [address] [place] [address] Nurse PractitionerMyrtue Medical Centerly Medicine02/06/25Team MemberRelationshipSpecialtyStart DateEnd Date Shaikh Sánchez MD [address] [place] [address] PCP - Linda HI11/14/23 Ian Soares MD [address] [place] [address] PCP - GeneralFamily Ylublanc16/29/24 Zamzam Wheeler NP [address] [place] [address] Nurse PractitionerInternal Medicine01/16/24 Arturo Chanel MA [address] [place] [address] [facility] [place]09/24/24 La Pack, GREG [address] [place] [address] Nurse PractitionerChi [facility] [place]02/06/25Te MemberRelationshipSpecialtyStart DateEnd Date Shaikh Sánchez MD [address] [place] [address] PCP - [facility]11/14/23 Ian Soares MD [address] [place] [address] PCP - GeneralChi [facility] [place]09/11/24 Zamzam Wheeler NP [address] [place] [address] Nurse PractitionerInternal Medicine01/16/24 Arturo Chanel MA [address] [place] [address] [facility] [place]09/24/24 La Pack NP [address] [place] [address] Nurse PractitionerChi [facility] [place]02/06/25Team MemberRelationshipSpecialtyStart DateEnd Date Shaikh Sánchez MD [address] [place] [address] PCP - Linda HI11/14/23 Ian Soares MD [address] [place] [address] PCP - GeneralSaint [facility] Jmcxauln54/29/24 Zamzam Wheeler, [employer] [place] [employer] [address] [place] [address] Nurse Pract[facility] Medicine01/16/24 Arturo Chanel, [place] [address] [place] [address] Family Sgxzplgt88/11/24 La Pack NP [address] [place] [address] Nurse PractitionerChi [facility] [place]02/06/25Team MemberRelationshipSpecialtyStart DateEnd Date Shaikh Sánchez MD [address] [place] [address] PCP - Linda HI11/14/23 Ian Soares MD [address] [place] [address] PCP - [facility] Xahaamel63/29/24 Zamzam Wheeler, [place] [employer] [address] [place] [address] Nurse PractitionerInternal [facility]01/16/24 Arturo Chanel MA [address] [place] [place] [address] [facility] [place]09/24/24 La Pack NP [address] [place] [address] Nurse PractitionerChi [facility] [place]02/06/25Team MemberRelationshipSpecialtyStart DateEnd Date Shaikh Sánchez MD [address] [place] [address] PCP - [facility]11/14/23 Ian Soares MD [address] [place] [address] PCP - [facility]Chi [facility] [place]09/11/24 Zamzam Wheeler NP [address] [place] [address] Nurse PractitionerInternal [facility]01/16/24 Arturo Chanel MA [address] [place] [address] [facility] [place]09/24/24 La Pack NP [address] [place] [address] Nurse PractitionerChi [facility] [place]02/06/25Te MemberRelationshipSpecialtyStart DateEnd Date Shaikh Sánchez MD [address] [place] [address] PCP - Linda HI11/14/23 Ian Soares MD [address] [place] [address] PCP - GeneralFamily Rwcurbml23/29/24 Zamzam Wheeler [employer] [employer] [address] [place] [address] Nurse PractitionerInternal Medicine01/16/24 Arturo Chanel, [place] [address] [place] [address] Family Mzobedpf35/11/24 La Pack NP [address] [place] [address] Nurse PractitionerChi [facility] [place]02/06/25Team MemberRelationshipSpecialtyStart DateEnd Date Shaikh Sánchez MD [address] [place] [address] PCP - Linda HI11/14/23 Ian Soares MD [address] [place] [address] PCP - GeneralFami Ipzqxduh82/29/24 Zamzam Wheeler NP [address] [place] [address] Nurse PractitionerInternal Medicine01/16/24 La Pack NP [address] [place] [address] Nurse PractitionerFanewton-wellesley hospital Medicine02/06/25 Team Status: Active Member Role Status Dates La Pack , [employer] [place] [employer]-C Primary Care Provider Active Team Status: Inactive Member Role Status Dates La Pack , [place] [place] [employer]-C Primary Care Provider Active Start: July 31, 2025 End: July 31, 2025La Pack , [place] COUNSEL-CAttending ProviderActiveStart: July 31, 2025 End: July 31, 2025 Team Status: Active Member Role Status Dates La Pack , [place] [employer]-C Primary Care Provider Active Start: August 12, 2025 La Pack , [place] COUNSEL-CAttending ProviderActiveStart: August 12, 2025 Team Status: Inactive Member Role Status Dates La Pack , [place] [employer]-C Primary Care Provider Active Start: August 22, 2025 End: August 22, 2025La Pack , [place] COUNSEL-CAttending ProviderActiveStart: August 22, 2025 End: August 22, 2025Team MemberRelationshipSpecialtyStart DateEnd Date Shaikh Sánchez MD PCP - GeneralInternal Medicine Shaikh Sánchez MD [address] [place] [address] PCP - [place] HI11/14/23 Shaikh Sánchez MD [address] [address] PCP - GeneralInternal Medicine01/15/2410 [place] [address] [place] [address] PCP - GeneralFamily Jputievw36/29/24 Zamzam Wheeler NP [address] [place] [address] Nurse PractitionerCopper Springs East Hospitalnal Medicine01/16/24 Funmilayo Lombardo, CERTIFIED HAND THERAPIST [address] [place] [address] Social WorkerSpromedica fostoria community [facility] Services Gustavo Romero LPN Licensed Practical NurseFamily Medicine Kirstin Carreon LPN [address] [place] [address] Licensed Practical NurseFamily Medicine07/27/2411 [place] [address] [place] [address] Nurse PractitionerFamily Aomhhhbq43/29/243 Arturo Chanel MA [address] [place] [address] Family Vjageosp15/11/248 La Pack NP [address] [place] [address] Nurse PractitionerFamily Medicine02/06/25Team MemberRelationshipSpecialtyStart DateEnd Date Shaikh Sánchez MD [address] [place] [address] PCP - Linda HI11/14/23 Shaikh Sánchez MD [address] [place] [address] PCP - GeneralInternal Medicine01/15/2410 [place] [address] [address] PCP - GeneralFamily Ycjecdlf14/29/24 Zamzam Wheeler NP [address] [place] [address] Nurse PractitionerInternal Medicine01/16/24 Grupo Funmilayo, CERTIFIED HAND THERAPIST [address] [address] Social WorkerSocial Services Gustavo Romero LPN Licensed Practical NurseFamily Medicine Kirstin Carreon LPN [address] [address] Licensed Practical NurseFamily Medicine07/27/2411 [place] [address] [address] Nurse PractitionerFamily Bmjushwu33/29/243 Arturo Chanel, [place] [address] [place] [address] Family Rkjzxgpq96/11/248 La Pack NP [address] [place] [place] [address] Nurse PractitionerFamily Medicine02/06/25 Team Status: Active Member Role/Relationship Status Dates SILVER Norman Primary Care Provider Active Team Status: Inactive Member Role/Relationship Status Dates SILVER Norman Primary Care Provider Active Start: July 31, 2025 End: July 31, 2025La Pack , [place] COUNSEL-CAttending ProviderActiveStart: July 31, 2025 End: July 31, 2025 Team Status: Active Member Role/Relationship Status Dates La Pack , [employer] [place] [employer]-C Primary Care Provider Active Start: August 12, 2025 La Pack , [place] COUNSEL-CAttending ProviderActiveStart: August 12, 2025 Team Status: Inactive Member Role/Relationship Status Dates La Pack , [place] [place] [employer]-C Primary Care Provider Active Start: August 22, 2025 End: August 22, 2025La Pack , [place] COUNSEL-CAttending ProviderActiveStart: August 22, 2025 End: August 22, 2025 Team Status: Active Member Role/Relationship Status Dates La Pack , [place] [place] [employer]-C Primary Care Provider Active Start: August 27, 2025 La Pack , [place] COUNSEL-CAttending ProviderActiveStart: August 27, 2025 Team Status: Inactive Member Role/Relationship Status Dates La Pack , [place] [place] [employer]-C Primary Care Provider Active Start: September 12, 2025 End: September 12, 2025La Pack , [place] COUNSEL-CAttending ProviderActiveStart: September 12, 2025 End: September 12, 2025 Reason for Visit (unrecogniz ed section and content) ReasonOnset DateCommentsMed [id number] DateCommentsMed Refill 4ReasonOnset DateCommentsMed Zvlagt6109/11/2024easonCommentsFollow-up ReasonOnset DateCommentsMed Bthpag494ReasonOnset DateCommentsMed Refill 10/22/2024easonCommentsMed RefillReasonOnset DateCommentsMed Gbwlgb9407/23/2024 ReasonOnset DateCommentsMed [id number] DateCommentsMed Refill 4ReasonOnset DateCommentsMed Creshp2811/27/2024ReasonOnset DateComments Med Pnlgiz8612/06/2024ReasonCommentsFollow-upHospital f/uSore ThroatEaracheRight earReasonCommentsSuture / Staple RemovalheadReasonOnset DateCommentsMed Refill 02/25/2025ReasonOnset DateCommentsMed Houqws7706/05/2025ReasonCommentsDiabetes Goals (unrecognized section and content) Goals may [...] BE BASED ON THE PRIMARY CLINICAL RECORDS. [facility] [employer] provides no warranty or guarantee of the accuracy or completeness of information in this document.
--- OUTSIDE RECORDS SUMMARY | 2025-10-22 07:53 | XMS_ITS | Patient Health Record ---
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) ActiveconfirmedProblemAsthma (422949143)Asthma (J45.909)ActiveconfirmedProblem COPD - Chronic obstructive pulmonary disease (93050762)COPD (chronic obstructive pulmonary disease) (J44.9)ActiveconfirmedProblemChronic venous hypertension with ulcer and inflammation involving both sides (I87.333)ActiveconfirmedProblemUlcer of ruffin, right, limited to breakdown of skin (L97.811)Activeconfirmed Plan Of Treatment No Information Insurance Providers Payer Name Payer Address Payer Phone Subscriber Number Group Number Insured Name Patient Relationship to Insured Coverage Start Date Coverage End Date [employer] PPO PLUS LOCAL PLAN [address] [place] [phone] [id number] [place] - patient is the insured
--- OUTSIDE RECORDS SUMMARY | 2025-10-22 07:55 | XMS_ITS | Clinical Summary ---
Author Organization [facility] Address [address] [place] [address] Care Team Providers Care Hall Clerk Name Role Phone Zamzam Wheeler PBX REPAIRER Unavailable [phone] La Pack PBX REPAIRER Unavailable [phone] Ian Rader MD Primary Care Provider [phone] Allergies No known active allergies Medications MedicationSigDispense QuantityRefillsLast FilledStart DateEnd DateStatus LORazepam (Ativan) 0.5 MG tablet Indications:ELADIO (generalized anxiety disorder)Take 1 tablet (0.5 mg) by mouth 3 (three) times a day as needed for anxiety for up to 10 days 30 tablet 5Active Glucose Blood (Blood Glucose Test) strip Indications:Type 2 diabetes mellitus without complication, without long-term current use of insulin (HCC)1 each by In Vitro route Daily 100 strip 3035036Active albuterol HFA 90 mcg/act inhaler Indications:Chronic obstructive pulmonary disease, unspecified COPD type ([facility]) Inhale 2 puffs every 4 (four) hours if needed for wheezing 18 g 5Active Abrysvo 120 MCG/0.5ML reconstituted solution 5Active Ijvlekliawb-Luemdlnmb-Permca (Trelegy Ellipta) 200-62.5-25 MCG/ACT aerosol powder Indications:Asthma with COPD (chronic obstructive pulmonary disease) ([facility])Inhale 1 Inhalation Daily 3 each 5Active Xzmulgnetha-Ytrffnkyu-Mqelza (Trelegy Ellipta) 200-62.5-25 MCG/ACT aerosol powder Indications:Asthma with COPD (chronic obstructive pulmonary disease) ([facility])Inhale 1 Inhalation Daily 3 each 5Active atorvastatin (Lipitor) 40 MG tablet Indications:Hyperlipidemia, unspecifiedTake 1 tablet (40 mg) by mouth at bedtime 100 tablet 5Active metFORMIN (Glucophage) 500 MG tablet Indications:Type 2 diabetes mellitus without complications ([facility])Take 1 tablet (500 mg) by mouth Daily 100 tablet 5Active omeprazole (PriLOSEC) [address] capsule Indications:Gastro-esophageal reflux disease without esophagitisTake 1 capsule (20 mg) by mouth Daily 100 capsule 5Active losartan (Cozaar) 50 MG tablet Indications:Primary hypertensionTake 1 tablet (50 mg) by mouth Daily 100 tablet 5Active albuterol (2.5 MG/3ML) 0.083% nebulizer solution Indications:Chronic obstructive pulmonary disease, unspecified COPD type ([facility]) Take 3 mL (2.5 mg) by nebulization [...] add lasix Check labs 07/06/25 Limit sodium Tvxmnomqjy88/13/2025 Assessment & Plan (06/26/2025 11:11 AM EDT): Secondary to leg swelling, will cover w atb d/t left leg Denies fever or chills Iron xyyozicfnq90/31/2025bnormal CBC06/13/2025Encounter for subsequent annual wellness visit (AWV) in Medicare iomqmdz8004/16/2025OA (osteoarthritis)04/01/2025 Acquired uiafkuqafkgjoh22/12/2025 Assessment & Plan (06/26/2025 5:02 AM EDT): No current meds Initial test TSH was elevated in 03/08: 4.718, recheck 1 month later 2.663, free T 4 WNL as well Elevated TSH02/19/2025Generalized anxiety /26/2025 Assessment & Plan (06/26/2025 11:11 AM EDT): Will increase dose of sertraline to 100mg Add buspar Fu in 4 weeks Assessment & Plan (02/06/2025 10:43 AM EDT): Takes ativan prn, and sertraline Cigarette nicotine dependence without tnabujjrdyhw57/12/2025 Assessment & Plan (06/26/2025 5:02 AM EDT): Has not smoked since [employer] Assessment & Plan (02/06/2025 10:33 AM EDT): Has not smoked since [employer] Assessment & Plan (01/23/2025 6:53 AM EDT): The patient has been advised of the risks of continued smoking: stroke, ID, all forms of cancer, lung disease, and . Options for quitting smoking include: cold turkey, hypnosis, acupuncture, nicotine replacement meds(gum, lozenges, and patches), Buproprion, and Varenicline. At this time pt is encouraged to evaluate their goals for wanting to quit smoking, and reach out toprovider when ready to start this process Scalp laceration, pvrfxri5301/23/2025 Assessment & Plan (01/23/2025 1:10 PM EDT): No s/s infection Neuro exam is normal I do not suspect her fever is related to this Suspect possible resp COPD wjrynwbivplc09/12/2025 Assessment & Plan (01/23/2025 1:09 PM EDT): Will add augmentin, no cxr at this time, can cont albuterol prn and trelegy as directed Fluids, and encourage cough and deep breathing If worsening in sxs go to Er Acute hypoxic respiratory crqzfnv8512/24/2024 Assessment & Plan (02/06/2025 10:25 AM EDT): Wears oxygen at home Inhalers: trelegy, albuterol Assessment & Plan (01/14/2025 9:54 AM EST): SpO2 stable and wean oxygen as tolerated. Vitamin D ngmvvggtwa42/08/2024 Overview (06/21/2024): Have vitamin D levels redrawn. Assessment & Plan (02/06/2025 6:27 AM EDT): Taking supplement 2,000 international units daily Check labs Dermoid cyst of right ear06/21/2024 Overview (06/21/2024): Referral sent to ENT Right acoustic ilcmhzd4602/23/20246444Fcvshzutsu10/11/2024 Overview (02/23/2024): Patient admits to gait instability [...] on baseline history of acoustic neuroma. Demyelinating lulwwuv0502/23/2024rimary flgmpcoxdzyp77/14/2024 Assessment & Plan (06/26/2025 5:01 AM EDT): [...] Check BMP in a few weeks Other jlfrkgnexsigrd57/08/2024 Assessment & Plan (02/06/2025 6:32 AM EDT): [...] without complication, without long-term current use of gkdqajv9711/21/2023 Assessment & Plan (06/26/2025 5:01 AM EDT): [...] Metformin. Recurrent major depressive disorder, in full tupleaawm86/08/2024 Assessment & Plan (02/06/2025 10:43 AM EDT): [...] PLAN FOR MODERATE PERSISTENT ASTHMA WITHOUT COMPLICATION ([facility]) WRITTEN ON 11/21/2023 3:40 PM BY SHAIKH [...] medications. Resolved Problems ProblemNoted DateDiagnosed DateResolved DateInfluenza A05002/06/2025 Assessment & Plan (01/14/2025 9:54 AM EST): Recent infection but improved and monitor. Acoustic zcpnosv91/ Overview (02/23/2024): 68-year-old female who is being seen in outpatient neurological consultation request of Dr Sánchez for acoustic neuroma on the right. Medical history includes bursitis, GERD, hypertension, hyperlipidemia, depressions, iron deficiency anemia, vitamin D deficiency, and diabetes mellitus type 2. Patient [facility] monitoring of acoustic neuroma initially diagnosed in 2014. At that time she had the acoustic neuroma surgically removed. She was told there was reoccurrence in 2017.Her last imaging was in April 2022 which showed stable appearance of the cerebellopontine mass. Repeat MRI,as below, without evidence of mass or abnormal enhanceent. Current /10/2025 Assessment & Plan (11/21/2023 3:44 PM EST): Down to 2-3 cigarettes a day. Encouraged the patient. She will attempt to quit completely in upcoming days. Encounters DateTypeDepartmentCare TteqWkclxpgmxeb21/30/2025Orders Only [facility] [address] [place] [address] Ian Rader MD from Last 3 Months Immunizations ImmunizationAdministration DatesNext DueInfluenza, High-dose Seasonal, Quadrivalent, Preservative Free3Pneumococcal Conjugate PCV SARS-COV-2 (COVID-19) vaccine, mRNA, spike protein, LNP, bivalent, preservative free, 30 mcg/0.3 mLdose, carolyn-sucrose eplkswddzec60/13/2025 Family History Medical HistoryRelationNameCommentsCoronary artery diseaseFatherDiabetesFather HypertensionFatherSepsisFatherUterine cancerMotherRelationNameStatusComments FatherDeceasedMotherDeceased Social History Tobacco UseTypesPacks/DayYears UsedDateSmoking Tobacco: Every DayCigarettes Passive Smoke Exposure: CurrentSmokeless Tobacco: Never Tobacco Cessation:Ready to Q uit: Not Asked; Counseling Given: Not Answered Alcohol UseStandard Drinks/WeekCommentsNever0 (1 standard drink = 0.6 oz pure alcohol)Caffeine: 2-3 cups per dayPHQ-2AnswerDate RecordedPatient Health Questionnaire-2 Syfzz2874CommentsNoSex and Gender Information ValueDate RecordedSex Assigned at BirthNot on fileLegal VjeZoniir88/15/2023 6:34 PM EDTGender IdentityNot on fileSexual OrientationNot on file Last Filed Vital Signs Vital SignReadingTime TakenCommentsBlood Bdxtdmaw458/8408 10:26 AM EDT Wzjdw163906/26/2025 10:26 AM JQHAxgddgdkplg71.9 ??C (98.4 ??F)06/26/2025 10:26 AM EDTRespiratory Wvkm672006/26/2025 10:26 AM EDTOxygen Otnurwpiju61%06/26/2025 10:26 AM EDTInhaled Oxygen Concentration--Yjaihp20.1 kg (141 lb 6.4 oz)02/06/2025 10:08 AM ZNOGrndbs449 cm (5' 3 )01/23/2025 11:44 AM EDTBody Mass Index25.05 01/23/2025 11:44 AM EDT Plan of Treatment Health MaintenanceDue DateLast DoneCommentsCT Qkgiakohmciy1953FIT 1955FOBT1955 5730Keitlznkzxvfq1953OVID-19 Vaccine ( season)/11/2020, 01/16/2021Influenza Vaccine (#1)2025 08/14/2023iabetes: Hemoglobin A1C, 09/20/2024, 07/15/2023 FIT-DNA3Diabetes: Urine Protein Jrocjnerc25/07/2026 02/18/2025, 01/12/20244828Mvyjzpqpb03, 01/16/2024Medicare Annual Wellness (AWV) (Patient Refused), 4Diabetes: Retinopathy Nbmmeexna17, 01/08/2025, 03/14/2023olonoscopy olorectal Cancer Dqzshokpl04/26/2035Pneumococcal Vaccine: 65+ YikzvHxakdpnoe64/17/2025 Procedures Procedure NamePriorityDate/TimeAssociated DiagnosisCommentsHM COLONOSCOPYRoutine 06/08/2025 9:33 AM EDTMM TOMOSYNTHESIS SCREENING BI02/18/2025 3:53 PM EDT DIABETIC RETINOPATHY SCREENING - OU - BOTH ZQCTMczrzri63/19/2025 3:23 PM EDTPOCT GLYCOSYLATED HEMOGLOBIN (HGB A1C)Hofiwyk2409/20/2024 10:56 AM EST Type 2 diabetes mellitus without complication, without long-term current use of insulin (HCC) from Last 3 Months or Most Recently Relevant to Health Maintenance Results * MM TOMOSYNTHESIS SCREENING BI (02/18/2025 3:53 PM EDT)Anatomical Region LateralityModalityOtherSpecimen (Source)Anatomical Location / Laterality Collection Method / VolumeCollection TimeReceived Time02/18/2025 3:53 PM EDT Narrative 02/18/2025 3:54 PM EDT [facility] ?[address] ? [place] [address] ? Mammography Report ? Signed ? Patient: ZULEYKA CHAUDHRY ?MR#: [id number] ?? : 1955 ?Acct:[id number] ?? Age/Sex: 69 / F ?ADM Date: 02/18/25 ?? Loc: MAMMO ? Attending Dr: La Pack PBX REPAIRER ? Ordering Physician: La Pack NP ?Results: ? Date of Service: 02/18/25 ?Follow Up: ? Procedure(s): MM tomosynthesis screening BI ?? Accession Number(s): [id number] ? cc: La Pack PBX REPAIRER ? Patient Name: ? ZULEYKA CHAUDHRY ? MR#: [id number] ? : 1955 ? Exam Date: 02/18/2025 [...] at age ??53. ? LOCATION: ? [facility] ? BREAST COMPOSITION: ? The [...] ? Signed By: ?02/18/25 1554 ? DD/ 1553 ? TD/TT: ? Senior Marketing Data Analyst: Procedure Note Radiology, Radiologist, MD - 02/18/2025 [place] [address] Mammography Report Signed Patient: ZULEYKA CHAUDHRY MMR#: [id number] : 3Acct:[id number] Age/Sex: 69 / FADM Date: 02/18/25 Loc: MAMMO Attending Dr: La Pack PBX REPAIRER Ordering Physician: La Packesults: Date of Service: 02/18/25Follow Up: Procedure(s): MM tomosynthesis screening BI Accession Number(s): [id number] cc: La Pack NP Patient Name: ZULEYKA CHAUDHRY MR#: [id number] : 1955 Exam Date: 02/18/2025 Ordering Doctor: RISHABH Pack CNP RADIOLOGY REPORT PROCEDURE: MM TOMOSYNTHESIS SCREENING BI COMPARISON: MM TOMOSYNTHESIS SCREENING BI, 01/16/2024. MG MAMM CLTEPW5K [place] CAD, 08/11/2021. MG MAMM SCREEN [place] W CAD, 07/04/2020. MG MAMM BILSCRN W CAD DIG, 05/02/2015. INDICATIONS: Screening for malignant neoplasm Calculator Name NCI Breast Cancer Risk Assessment Tool 5 Year Breast Cancer Risk 1.10% Lifetime Breast Cancer Risk 3.20% Personal Breast Cancer No Personal Ovarian Cancer No Treatments None Family Cancers Mother with uterine cancer at age 55. LOCATION: [facility] BREAST COMPOSITION: The breasts are [...] M.D. Signed By:02/18/25 1554 DD/ 1553 TD/TT: Senior Marketing Data Analyst: Authorizing ProviderResult TypeResult StatusLa Pack NPCLINISYNC IMAGING Final Result * Diabetic Retinopathy Screening - OU - Both Eyes (01/30/2025 3:23 PM EDT) Anatomical RegionLateralityModalityHeadOther Narrative Authorizing ProviderResult TypeResult StatusIan Rader MDOPH PHOTOGRAPHY Final Result * POCT glycosylated hemoglobin (Hb A1C) docked device (09/20/2024 10:56 AM EST) ComponentValueRef RangeTest MethodAnalysis TimePerformed AtPathologist SignatureHemoglobin A1C6.1Specimen (Source)Anatomical Location / Laterality Collection Method / VolumeCollection TimeReceived TimeBloodVenous blood specimen / Kemoyni8709/20/2024 10:56 AM EST Narrative Authorizing ProviderResult TypeResult StatusBrnelsy Cardoso NPPOINT OF CARE TEST ENTER/EDIT ORDERABLESFinal Result from Last 3 Months or Most Recently Relevant to Health Maintenance Insurance Care Teams Team MemberRelationshipSpecialtyStart DateEnd Date Ian Rader MD [address] [place] [phone] PCP - GeneralFamily Tloflhcz55/30/25 Zamzam Wheeler NP Nurse PractitionerInternal Medicine01/16/24 La Pack NP [address] [place] [phone] Nurse PractitionerFamily Medicine02/06/25
[2025-10-22 08:13] LABS: Hematocrit 29.4 % (36.0-48.0); Hemoglobin 8.6 g/dL (12.0-16.0); Immature Granulocytes Abs Auto 0.07 10^3/uL (0.00-0.03); Immature Granulocytes Pct Auto 0.5 % (0.0-0.5); Lymphocytes Absolute Auto 0.7 10^3/uL (1.2-3.8); Mean Corpuscular HGB Conc 29.3 g/dL (29.9-35.2); Mean Corpuscular Hemoglobin 26.9 pg (26.7-34.0); Mean Corpuscular Volume 91.9 fL (81.0-99.0); Platelet Count 413 10^3/uL (150-450); Red Blood Count 3.20 10^6/uL (4.20-5.40); White Blood Count 15.0 10^3/uL (4.0-11.0)
[2025-10-22 08:16] LABS: Glucose Urine UA NEGATIVE (NEGATIVE)
[2025-10-22 08:29] LABS: Alanine Aminotransferase 84 U/L (14-59); Albumin Globulin Ratio 0.6; Albumin Level 2.5 g/dL (3.4-5.0); Alkaline Phosphatase 139 U/L (46-116); Anion Gap 9.5; Aspartate Amino Transferase 32 U/L (15-37); Blood Urea Nitrogen 22.0 mg/dL (7.0-18.0); Calcium 9.0 mg/dL (8.5-10.1); Carbon Dioxide 36.3 mmol/L (21.0-32.0); Chloride 108 mmol/L (98-107); Estimated GFR (African America >60 (>=60 mL/min/1.73m^2); Estimated GFR (Non-African Ame >60 (>=60 mL/min/1.73m^2); Globulin 4.4 g/dL; Glucose 132 mg/dL (74-106); Potassium 4.8 mmol/L (3.5-5.1); Sodium 149 mmol/L (136-145); Total Protein 6.9 g/dL (6.4-8.2)
[2025-10-22 08:39] LABS: Lactate/Lactic Acid 1.1 mmol/L (0.4-2.0)
[2025-10-22 09:34] LABS: Allen Test POSITIVE (POSITIVE); HCO3 ABG 35.8 mmol/L (22.0-26.0); Liters per Minute 4; O2 Mode N/C; Oxygen Saturation ABG 93.6 %; PO2 ABG 76.8 mmHg (80.0-100.0); Puncture Site R RAD
[2025-10-22 09:39] LABS: ABG PCO2 65.1 mmHg (35.0-45.0)
--- NOTE | 2025-10-22 09:52 | CT_ITS ---
The [address] [address] Patient Name: JULIAN MONTAÑO MRN: [id number] date: 1955 Sex: F Assigned Patient Location: ER Current Patient Location: ER Accession/Order Number: [id number] Exam Date: 10/22/2025 09:48 Report Date: 10/22/2025 10:21 At the request of: ALY SHRESTHA MD Procedure: CT head/brain wo con CT head/brain wo con 10/22/2025 9:54 AM SIGNS AND SYMPTOMS: ^ams he, generalized weakness TECHNIQUE:Multi-detector CT axial slices of the brain were obtained without IV contrast. CT was performed with one or more of the following dose reduction techniques: Automated exposure control, adjustment of the mA and/or kV according to patient size, or use of iterative reconstruction technique. COMPARISON: 01/14/2025 FINDINGS: There is no shift of the midline structures, acute intracranial bleeding, mass effects, or evidence of acute ischemia. There is mild age-related cortical atrophy. The ventricular system is normal in size. The brainstem and the cerebellum are unremarkable. The visualized intraorbital contents, the visualized paranasal sinuses, and the infratemporal soft tissues show no acute abnormality. There is evidence of previous mastoidectomy on the right. The osseous structures in the skull base and the calvarium show no abnormality. CT/CT head/brain wo con IMPRESSION: No acute intracranial pathology. Mild age-related cortical atrophy is noted. There is evidence of previous mastoidectomy on the right. Impression dictated by: Delonte Suero M.D. 10/22/2025 10:21 AM Dictation Location: [employer] Electronically authenticated by: [id number] Y Date: 10/22/2025 10:21
--- NOTE | 2025-10-22 10:28 | ED.AMS1 ---
HPI - Altered Mental Status General Chief Complaint: Weakness Stated Complaint: WEAKNESS Time Seen by Provider: 10/22/25 07:47 Source: patient Mode of arrival: ambulance Limitations: no limitations History of Present Illness HPI narrative: The patient is 70 years old female presenting to the ER by the EMS after her grandson who lives with her called the ambulance because she was confused for him, according to the sister at the bedside the patient was talking about relatives and speaking about the [employer] which she did not make any sense, the patient herself does not have any complain although she presents to us in a disheveled condition where her depends is not changed and her bilateral lower extremity covered with a dressing that is old and dirty Patient denies any abdominal pain but according to the sister at the bedside the redness in her legs has been increasing although she have a chronic bilateral lower extremity dressing that gets changed in the wound clinic, it not cleared per the sister as well as the patient when the last time this was a change Related Data Home Medications ?Medication ?Instructions ?Recorded ?Confirmed albuterol sulfate 90 mcg/actuation 2 puff inhalation Q4H PRN 12/09/24 10/22/25 aerosol inhaler shortness of breath or wheezing atorvastatin 40 mg tablet 40 mg PO DAILY 12/09/24 10/22/25 fluticasone fur. 200 mcg-umeclid 1 inh inhalation DAILY 12/09/24 10/22/25 62.5 mcg-vilant 25 mcg inhalat.powder (Trelegy Ellipta) losartan 50 mg tablet 50 mg PO DAILY 12/09/24 10/22/25 meloxicam 7.5 mg tablet 7.5 mg PO DAILY 12/09/24 10/22/25 metformin 500 mg tablet 500 mg PO DAILY 12/09/24 10/22/25 omeprazole 20 mg capsule,delayed 20 mg PO DAILY 12/09/24 10/22/25 release sertraline 50 mg tablet 50 mg PO DAILY 12/09/24 10/22/25 ferrous sulfate 325 mg (65 mg 325 mg PO QDAY 01/14/25 10/22/25 iron) tablet,delayed release lorazepam 0.5 mg tablet 0.5 mg PO .qhs 01/14/25 10/22/25 Allergies Allergy/AdvReac Type Severity Reaction Status Date / Time No Known Drug Allergies Allergy Verified 10/22/25 07:33 Review of Systems ROS Status of ROS 10 or more systems reviewed and unremarkable except as noted in history and below PFSH PFSH Social History Little interest or pleasure in doing things: not at all Feeling down, depressed, or hopeless: not at all Exam Narrative Exam Narrative: Nurses notes and vital signs reviewed and patient is not hypoxic. General: Well-appearing and in no apparent distress. Skin: Warm, dry, no pallor noted. No rash. Head: Normocephalic, atraumatic. Neck: Supple, non-tender. Eye: Pupils are equal, round and EOMI. No scleral icterus. Ears, Nose, Mouth, and Throat: very dry mucous membranes Cardiovascular: Regular Rate and Rhythm without murmur, gallop or rub. Respiratory: No accessory muscle use or respiratory distress. Lungs are clear to auscultation, no wheezing, rales or rhonchi Chest Wall: no tenderness Back: No midline thoracic or lumbar vertebral tenderness. No CVA tenderness Musculoskeletal: n bilateral extremity dry skin with redness noted on both lower extremity and pitting edema of 1+ at least until the level of the knee with redness climbing the medial aspect of the thigh bilaterally on the posterior aspect of the buttock the patient still have redness and the redness is all over the buttock area it is hard to tell if this is a first degree ulcer but it the patient does not seem to be ambulating well GI: Abdomen is soft, non-distended. Normal bowel sounds. No masses appreciated. No tenderness to palpation. No rebound, guarding, or rigidity noted. Neurological: A&O x2. No cranial nerve dysfunction observed. Constitutional Vital Signs, click to edit/add: Last Vital Signs Temp 98.8 F 10/22/25 07:34 Pulse 92 H 10/22/25 07:34 Resp 18 10/22/25 07:34 BP 118/62 10/22/25 07:34 Pulse Ox 97 10/22/25 07:34 O2 Del Method Nasal Cannula 10/22/25 08:14 O2 Flow Rate 4 10/22/25 08:14 Course Vital Signs Vital signs: Vital Signs Temperature 98.8 F 10/22/25 07:34 Pulse Rate 92 H 10/22/25 07:34 Respiratory Rate 18 10/22/25 07:34 Blood Pressure 118/62 10/22/25 07:34 Pulse Oximetry 97 10/22/25 07:34 Oxygen Delivery Method Nasal Cannula 10/22/25 07:34 Oxygen Delivery Flow Rate 4 10/22/25 07:34 Temperature 98.8 F 10/22/25 07:34 Pulse Rate 92 H 10/22/25 07:34 Respiratory Rate 18 10/22/25 07:34 Blood Pressure 118/62 10/22/25 07:34 Pulse Oximetry 97 10/22/25 07:34 Oxygen Delivery Method Nasal Cannula 10/22/25 08:14 Oxygen Delivery Flow Rate 4 10/22/25 08:14 MDM - Altered Mental Status MDM Narrative Medical decision making narrative: Upon arrival it was concerning that the patient had cellulitis of both lower extremity especially with the redness climbing above the dressing The patient CBC initially showed some leukocytosis. Chemistry was did not show any significant change except for the hyper natremia and some nonspecific changes The patient EKG was showing sinus rhythm with a heart rate of [address] elevation The patient chest x-ray showed no acute pathology and her CT head is well Urinalysis showed no UTI and the patient had a urinalysis after Lopez catheter placed because of the difficulty in ambulation The patient sister at the bedside providing most of the history Right now the patient will be covered with Unasyn for cellulitis of both lower extremities I did discuss the case with Dr. Beasley and I did also express my concern about the patient home condition and Dr. Beasley is agreeable with above-mentioned plan Lab Data Labs: Lab Results 10/22/25 10/22/25 10/22/25 Range/Units 07:43 08:00 09:25 WBC 15.0 H (4.0-11.0) 10^3/uL RBC 3.20 L (4.20-5.40) 10^6/uL Hgb 8.6 L (12.0-16.0) g/dL Hct 29.4 L (36.0-48.0) % MCV 91.9 (81.0-99.0) fL MCH 26.9 (26.7-34.0) pg MCHC 29.3 L (29.9-35.2) g/dL RDW 16.4 H (11.0-15.0) % Plt Count 413 (150-450) 10^3/uL MPV 9.5 (9.5-13.5) fL Neut % (Auto) 87.5 H (43.0-75.0) % Lymph % (Auto) 4.8 L (20.5-60.0) % [place] % (Auto) 6.4 (1.7-12.0) % Eos % (Auto) 0.3 L (0.9-7.0) % Baso % (Auto) 0.5 (0.2-2.0) % Neut # (Auto) 13.1 H (1.4-6.5) 10^3/uL Lymph # (Auto) 0.7 L (1.2-3.8) 10^3/uL [place] # (Auto) 1.0 H (0.3-0.8) 10^3/uL Eos # (Auto) 0.1 (0.0-0.7) 10^3/uL Baso # (Auto) 0.1 (0.0-0.1) 10^3/uL Abs Immat Gran (auto) 0.07 H (0.00-0.03) 10^3/uL Imm/Tot Granulo (auto) 0.5 (0.0-0.5) % Puncture Site R rad ABG pH 7.349 L (7.350-7.450) ABG pCO2 65.1 H* (35.0-45.0) mmHg ABG pO2 76.8 L (80.0-100.0) mmHg ABG HCO3 35.8 H (22.0-26.0) mmol/L ABG O2 Saturation 93.6 % ABG Base Excess 10.2 H (-2.0-2.0) mmol/L Roland Test Positive (POSITIVE) O2 Liters/Min 4 Sodium 149 H (136-145) mmol/L Potassium 4.8 (3.5-5.1) mmol/L Chloride 108 H (98-107) mmol/L Carbon Dioxide 36.3 H (21.0-32.0) mmol/L Anion Gap 9.5 BUN 22.0 H (7.0-18.0) mg/dL Creatinine 0.78 (0.55-1.02) mg/dL Est GFR ( Amer) >60 (>=60 mL/min/1.73m^2) Est GFR (Non-Af Amer) >60 (>=60 mL/min/1.73m^2) BUN/Creatinine Ratio 28.2 Glucose 132 H (74-106) mg/dL Lactate 1.1 (0.4-2.0) mmol/L Calcium 9.0 (8.5-10.1) mg/dL Total Bilirubin 0.2 (0.2-1.0) mg/dL AST 32 (15-37) U/L ALT 84 H (14-59) U/L Alkaline Phosphatase 139 H (46-116) U/L Troponin I High Sens 12.1 (4.0-51.3) pg/mL Total Protein 6.9 (6.4-8.2) g/dL Albumin 2.5 L (3.4-5.0) g/dL Globulin 4.4 g/dL Albumin/Globulin Ratio 0.6 Urine Color Lt. yellow (YELLOW) Urine Clarity Clear (CLEAR) Urine pH 6.0 (5.0-9.0) Ur Specific [place] 1.020 (1.005-1.025) Urine Protein Trace (NEG/TRACE) mg/dL Urine Glucose (UA) Negative (NEGATIVE) mg/dL Urine Ketones Negative (NEGATIVE) mg/dL Urine Occult Blood Negative (NEGATIVE) Urine Nitrite Negative (NEGATIVE) Urine Bilirubin Negative (NEGATIVE) Urine Urobilinogen 0.2 (0.2-1.0) EU/dL Ur Leukocyte Esterase Negative (NEGATIVE) Discharge Plan Discharge Chief Complaint: Weakness Clinical Impression: AMS (altered mental status), Cellulitis Patient Disposition: Admitted As Inpatient Time of Disposition Decision: 10:36
[2025-10-22] MEDS: AMPICILLIN SODIUM/SULBACTAM NA 3 GM in 0.9 % SODIUM CHLORIDE 100 ML IV (10:39)
[2025-10-22 10:44] LABS: Magnesium 2.2 mg/dL (1.8-2.4)
--- OUTSIDE RECORDS SUMMARY | 2025-10-22 11:36 | XMS_ITS | CCD ---
Author Organization [facility] CliniSy[facility]v Care Team Providers Care Chlorine Operator Name Role Phone CHALO, DR GIANNA PACHECO [...] Admitting Unavailable Shaikh Sánchez MD Unavailable [place] FILE CONVERSION OPERATOR, Zamzam C Unavailable Shaikh Sánchez MD Primary Care Provider Kirstin Carreon LPN Unavailable Unavailable Ian Soares MD Primary Care Provider Daniel Cardoso NP Unavailable [phone] Gustavo Romero LPN Unavailable Unavailable [place] FILE CONVERSION OPERATOR, Zamzam C Unavailable Arturo Chanel MA Unavailable Unavailable Walker FILE CONVERSION OPERATOR-CDaniel Primary Care Provid er Ramos MD, Mohamad Admit Provider Kayla ANGULO, Daniel Attending Provider Sara ANGULO, Basekassandra Other Provider Hernandez ANGULO, Suzette Other Provider Ryan Arshad MD Other Provider Turjimenez PARKING PATROLLER, Ilana Other Provider Hubert Mcguire DO Other Provider [phone] Beni ANGULO, Dave Hidalgo Other Provider PROVIDER, UNKNOWN Attending Unavailable PROVIDER, UNKNOWN Admitting Unavailable Chalo ANGULO, Gianna Mir Primary Care Provider Unava ilable Liam FILE CONVERSION OPERATOR, Zamzam C Unavailable Walker FILE CONVERSION OPERATOR, Daniel Unavailable [phone] Ramone FILE CONVERSION OPERATOR, La Unavailable Arturo Chanel MA Unavailable IAN [...] Unavaila ble Ruiz, Basem Consulting Unavailable Aichholz FILE CONVERSION OPERATOR-C, La J Primary Care Provider Ramone FILE CONVERSION OPERATOR-C, La J Attending Provider Gonzalo ANGULO, Parada Primary Care Provider Shaikh Sánchez MD Unavailable Liam GARZA, Zamzam C Unavailable Gonzalo ANGULO, Primary Care Provider [employer] PLANT EQUIPMENT OPERATOR, Funmilayo Unavailable Heather BAKERN, Ardana Unavailable Unavailable Lauri RUIZ, Kirstin Unavailable Prasanth ANGULO, Ian Primary Care Provider [phone] Walker FILE CONVERSION OPERATOR, Daniel Unavailable Darío MORALES, Arturo Unavailable Ramone FILE CONVERSION OPERATOR, La Unavailable Medications Current Medications MedicationDrug Class(es)DatesSig (Normalized)Sig (Original)Abrysvo 120 MCG/0.5ML reconstituted solution (8 sources)Start: 79-10-2107Empcpmt 120 MCG/0.5ML reconstituted solution 12/21/2024 Activeacetaminophen 500 mg oral capsule (4 sources)Start: 65-60-0228lrce 1 capsule by mouth every six hours as needed albuterol 0.83 mg/ml inhalation solution (20 sources)beta2-Adrenergic AgonistStart: 07-22-2025 End: 66-23-6416plsi 1 puff(s) by inhalation four times daily as needed for wheezingStart: 07-18-2025 End: 06-78-9107rkkf 2.5 mg by inhalation every six hoursAlbuterol Sulfate 2.5 mg /3 mL (0.083 %) solution for nebulization Discontinued 2.5 MG INHALATION Every 6 hours 1080 90 0 July 18, 2025 11:20am August 01, 2025 8:50pm Chronic obstructive pulmonary disease Chronic obstructive pulmonary disease, unspecified Start: 07-18-2025 End: 01-05-4727hncn 1 puff(s) by inhalation every four hoursAlbuterol Sulfate 90 mcg/actuation HFA aerosol inhaler Discontinued 2 PUFF INHALATION Every 4 hours July 18, 2025 12:00am August 01, 2025 8:49pmStart: 02-12-2025 End: 67-68-4716bozhrryzu (2.5 MG/3ML) 0.083% nebulizer solution Indications: Chronic obstructive pulmonary disease, unspecified COPD type (HCC) Take 3 mL (2.5 mg) by nebulization every 6 (six) hours if needed for wheezing 75 mL 1 06/09/2025 ActiveStart: 12-10-2024 End: 59-20-4610Wehrktzsv Sulfate 90 mcg/actuation HFA aerosol inhaler Discontinued INHALATION December 10, 2024 1:00am July 22, 2025 7:14pm Start: 06-21-2024 End: 87-29-2545sjyl 2 puff(s) by inhalation every four hours [...] oral tablet (11 sources)Penicillin-class AntibacterialStart: 01-23-2025 End: 86-21-0793fwxl 1 tablet by mouth in the morningamoxicillin-clavulanate (Augmentin) 875-125 MG tablet Indications: COPD exacerbation (CMS/HCC) Take1 tablet (875 mg) by mouth in the morning and 1 tablet (875 mg) before bedtime. Do all this for 10 days. Take with food. 20 tablet 01/23/2025 02/06/2025 Discontinued (Therapy completed)Start: 12-14-2024 End: 68-04-8726dqnq 1 tablet by mouth twice dailyAmoxicillin-Pot Clavulanate (Augmentin) 500-125 mg tablet Discontinued 1 TAB PO Twice daily 6 3 0 December 14, 2024 1:00am January 04, 2025 10:14amStart: 09-20-2024 End: 20-99-9056vntb 1 tablet by mouth in the morningamoxicillin-clavulanate (Augmentin) 875-125 MG tablet Indications: Non-recurrent acute serous otitis media of left ear Take 1 tablet (875 mg) by mouth in the morning and 1 tablet (875 mg) before bedtime. Do all this for 10 days. 20 tablet 09/20/2024 09/30/2024 Activebumetanide 1 mg oral tablet (2 sources)Loop DiureticStart: 16-24-3565oakr 1 tablet by mouth once daily busPIRone hydrochloride 7.5 mg oral tablet (10 sources)Start: 07-31-2025 End: 12-84-7749qvte 1 tablet by mouth twice dailyStart: 06-26-2025 End: 54-85-0729fisr 1 tablet by mouth twice dailyBuspirone 5 [...] oral capsule (2 sources)Cephalosporin AntibacterialStart: 06-26-2025 End: 10-83-8865ucjf 1 capsule by mouth in the morningcephalexin (Keflex) 500 MG capsule Indications: Cellulitis of left lower extremity Take 1 capsule (500 mg) by mouth in the morning and 1 capsule (500 mg) before bedtime. Do all this for 7 days. 14 capsule 06/26/2025 07/03/2025 Activecholecalciferol 0.05 mg oral tablet (20 sources)Vitamin DStart: 06-21-2024 End: 03-16-0901hwun 1 tablet by mouth once dailycholecalciferol (Vitamin [...] mg oral tablet (1 source)Start: 04-30-2024 End: 05-99-1531mjua 1 tablet by mouth once dailyferrous gluconate (Fergon) 324 (38 Fe) MG tablet Indications: Iron deficiency TAKE 1 TABLET BY MOUTH DAILY 100 tablet 04/30/2024 07/07/2024 Discontinued (Therapy completed)ferrous sulfate 325 mg delayed release oral tablet (20 sources)Start: 07-07-2024 End: 55-21-2278kowr 1 tablet by mouth in the morningferrous [...] Administer 1 spray into each nostril daily. CcpfyqTwmagozmeak-Xvhkzvchl-Wtsnjl (Trelegy Ellipta) 200-62.5-25 MCG/ACT aerosol powder (20 sources)Start: 05-06-2025 End: 94-69-8290Xcsdzoutuet-Umeclidin-Vilant (Trelegy Ellipta) 200-62.5-25 MCG/ACT aerosol powder Indications: Asthma with COPD (chronic obstructive pulmonary disease) ([facility]) Inhale 1 Inhalation Daily 3 each 1 05/06/2025 08/04/2025 ActiveStart: 02-25-2025 End: 36-22-3116Thzstydofkd-Umeclidin-Vilant (Trelegy Ellipta) 200-62.5-25 MCG/ACT aerosol powder Indications: Asthma with COPD (chronic obstructive pulmonary disease) ([facility]) Inhale 1 Inhalation Daily 3 each 1 02/25/2025 05/06/2025 Discontinued (Reorder)Start: 02-25-2025 End: 13-27-7587Wluljoumxtt-Umeclidin-Vilant (Trelegy Ellipta) 200-62.5-25 MCG/ACT aerosol powder Indications: Asthma with COPD (chronic obstructive pulmonary disease) ([facility]) Inhale 1 Inhalation Daily 3 each 1 02/25/2025 05/26/2025 ActiveStart: 08-27-2024 End: 04-82-0962Ecdtgazsxed-Umeclidin-Vilant (Trelegy Ellipta) 200-62.5-25 MCG/ACT aerosol powder Indications: Asthma with COPD (chronic obstructive pulmonary disease) ([facility]) Inhale 1 Inhalation Daily 3 each 1 08/27/2024 02/25/2025 Discontinued (Reorder)Start: 82-85-0843Rnszoovmtaf-Umeclidin-Vilant (Trelegy Ellipta) 200-62.5-25 MCG/ACT aerosol powder Indications: Asthma with COPD (chronic obstructive pulmonary disease) ([facility]) Inhale 1 Inhalation Daily 3 each 1 08/27/2024 ActiveStart: 08-27-2024 End: 11-82-2270Xevuyvdjpjn-Umeclidin-Vilant (Trelegy Ellipta) 200-62.5-25 MCG/ACT aerosol powder Indications: Asthma with COPD (chronic obstructive pulmonary disease) ([facility]) Inhale 1 Inhalation Daily 3 each 1 08/27/2024 11/25/2024 ActiveStart: 06-11-2024 End: 31-94-2512Ztsnzwnpbxi-Umeclidin-Vilant (Trelegy Ellipta) 200-62.5-25 MCG/ACT aerosol powder Indications: Asthma with COPD (chronic obstructive pulmonary disease) ([facility]) Inhale 1 Inhalation Daily 3 each 1 06/11/2024 08/27/2024 Discontinued (Reorder)Start: 06-11-2024 End: 72-01-8700Kbrikxpmiht-Umeclidin-Vilant (Trelegy Ellipta) 200-62.5-25 MCG/ACT aerosol powder Indications: Asthma with COPD (chronic obstructive pulmonary disease) ([facility]) Inhale 1 Inhalation Daily 3 each 1 06/11/2024 09/09/2024 IzrxjuIijvftltxar-Ddzlvijcq-Jwwplkdx (12 sources)Start: 89-42-1079Qryuc: 16-49-5293Kmmwifqhtds-Umeclidin-Vilanter (Trelegy Ellipta) 200-62.5-25 mcg blister with device Active 1 INH INHALATION Daily 180 July 18, 2025 11:18am Complies with drug therapyStart: 01-04-2025 End: 59-08-5224Qohuegyfala-Umeclidin-Vilanter (Trelegy Ellipta) 200-62.5-25 mcg blister with device Discontinued INHALATION Twice daily January 04, 2025 10:12am July 18, 2025 11:20amStart: 01-04-2025 Pldkpejflme-Dtnqjkdsq-Gvyyrzlb (Trelegy Ellipta) 200-62.5-25 mcg blister with device Active INHALATION Twice daily January 04, 2025 9:12amStart: 12-10-2024 End: 74-76-1095Efgyhnwtvyd-Umeclidin-Vilanter (Trelegy Ellipta) 200-62.5-25 mcg blister with device Discontinued INHALATION December 10, 2024 1:00am January 04, 2025 10:14amStart: 12-10-2024 End: 51-37-9755Nvfplxaeoyg-Umeclidin-Vilanter (Trelegy Ellipta) 200-62.5-25 mcg blister with device Discontinued INHALATION December 10, 2024 12:00am January 04, 2025 9:14amStart: 54-01-5082Qxhnwdqgpta-Umeclidin-Vilanter (Trelegy Ellipta) 200-62.5-25 mcg blister with device Active INHALATION December 10, 2024 12:00amhydroCHLOROthiazide 12.5 mg / losartan potassium 50 mg oral tablet (13 sources)Thiazide Diuretic, Angiotensin 2 Receptor BlockerStart: 01-26-2024 End: 70-66-5698khhn 1 tablet by mouth once dailylosartan-hydroCHLOROthiazide (Hyzaar) [...] tablet (20 sources)Nonsteroidal Anti-inflammatory DrugStart: 12-10-2024 End: 39-23-7765gywe 1 tablet by mouth once dailyStart: 02-28-2019 End: 84-97-2983yftq 1 tablet by mouth once dailymeloxicam (MOBIC) 7.5 mg tablet Take 7.5 mg by mouth daily. 5 02/28/2019 Activemultivitamin capsule (4 sources)take 1 capsule by mouth once dailymultivitamin capsule Take 1 capsule by mouth daily. Activeondansetron 4 mg oral tablet (4 sources)Serotonin-3 Receptor AntagonistStart: 97-80-9572yqst 1 tablet by mouth every six hours as neededPEG 3350 (Glycolax, Miralax) 4 gram packet (2 sources)PEG 3350 (Glycolax, Miralax) 4 gram packet 17 g in the morning. Activepolyethylene glycol 3350 91548 mg powder for oral solution (4 sources)Osmotic Laxativepolyethylene glycol (GLYCOLAX) 17 gram packet Take 17 g by mouth daily. Activesertraline 50 mg oral tablet (20 sources)Serotonin Reuptake InhibitorStart: 50-01-4866yycb 2 tablets by mouth once dailyStart: 06-26-2025 End: 86-37-3507gfmd 1 tablet by mouth once dailysertraline (Zoloft) 100 MG tablet Indications: Depression, unspecified , Generalized anxiety disorder Take 1 tablet (100 mg) by mouth Daily 100 tablet 06/26/2025 10/04/2025 ActiveStart: 04-30-2024 End: 34-51-8207llaj 1 tablet by mouth once dailySertraline 50 mg tablet Discontinued 50 MG PO Daily January 04, 2025 10:14am July 18, 2025 10:56amspironolactone 25 mg oral tablet (4 sources)Aldosterone Antagonisttake 1 tablet by mouth once dailyspironolactone (ALDACTONE) 25 mg tablet Take 1 tablet by mouth daily. Active Completed/Discontinued Medications MedicationDrug Class(es)DatesSig (Normalized)Sig (Original)atorvastatin 40 mg oral tablet (20 sources)HMG-CoA Reductase InhibitorStart: 01-09-2018 End: 03-08-7678Pudvygyfiowr 40 mg tablet Discontinued MG December 10, 2024 1:00am January 04, 2025 10:14amfurosemide 40 mg oral tablet (9 sources)Loop DiureticStart: 07-31-2025 End: 13-78-4392ljad 1 tablet by mouth once dailyFurosemide 40 mg tablet Discontinued 40 MG PO Daily 30 July 31, 2025 12:00am August 22, 2025 9:44am Edema of both lower extremities Localized edemaStart: 06-26-2025 End: 61-19-9221vodb 1 tablet by mouth once dailyFurosemide 20 mg tablet Discontinued 20 MG PO Daily July 18, 2025 12:00am July 31, 2025 11:35amLORazepam 0.5 mg oral tablet (20 sources)BenzodiazepineStart: 07-28-2025 End: 52-97-0998ymhl 1 tablet by mouth once daily at bedtime as neededLorazepam (Ativan) 0.5 mg tablet Discontinued 0.5 MG PO Daily at bedtime as needed July 28, 2025 12:00am August 22, 2025 9:27amStart: 01-04-2025 End: 45-97-6579usup 1 tablet by mouth three times daily as neededLorazepam 0.5 mg tablet Discontinued 0.5 MG PO Three times daily as needed January 04, 2025 1:00am July 28, 2025 8:43pm End: 04-64-8622zrzi 1 tablet by mouth every six hours as needed for anxiety LORazepam (Ativan) 0.5 MG tablet Take 0.5 mg by mouth every 6 (six) hours if needed for anxiety 02/06/2025 Discontinued (Therapy completed)losartan potassium 50 mg oral tablet (20 sources)Angiotensin 2 Receptor BlockerStart: 09-20-2024 End: 00-65-4096xaup 1 tablet by mouth once dailyLosartan 50 mg tablet Discontinued 50 MG PO Daily January 04, 2025 10:12am August 06, 2025 2 :00pmmetFORMIN hydrochloride 500 mg oral tablet (20 sources)BiguanideStart: 04-30-2024 End: 16-02-9779Czgcevmws 500 mg tablet Discontinued MG December 10, 2024 1:00am January 04, 2025 10:14amtake 1 tablet by mouth twice daily at mealtime metFORMIN (GLUCOPHAGE) 500 mg tablet Take 500 mg by mouth 2 (two) times a day with meals. Activeomeprazole 20 mg delayed release oral capsule (20 sources)Proton Pump InhibitorStart: 01-30-2024 End: 76-73-4100Tykpgrekxx 20 mg capsule,delayed release(DR/EC) Discontinued MG December 10, 2024 1:00am January 04, 2025 10:14amoseltamivir 30 mg oral capsule (5 sources)Neuraminidase InhibitorStart: 12-14-2024 End: 48-70-2290htsk 1 capsule by mouth twice dailyOseltamivir 30 mg Capsule Discontinued 30 MG PO Twice daily 4 2 0 December 14, 2024 1:00am January 04, 2025 10:14ampredniSONE 20 mg oral tablet (5 sources)Start: 12-14-2024 End: 53-08-0177simg 2 tablets by mouth once dailyPrednisone 20 mg Tablet Discontinued 40 MG PO Daily 4 2 0 December 14, 2024 1:00am January 04, 2025 10:14amRsv Vac, Pref A And Pref B(Pf) (3 sources)Start: 07-18-2025 End: 46-88-9956Tot Vac, Pref A And Pref B(Pf) (Abrysvo (Pf)) 120 mcg/0.5 mL recon soln Discontinued ML IM July 18, 2025 12:00am July 28, 2025 8:42pm Problems Active Problems Problem ClassificationProblemDateDocumented DateEpisodic/Chronic Administrative/social admission (8 sources)Other reduced mobility; Translations: [Impaired mobility and activities of daily living]Onset: 184123-97-1844OxyxfewzYafefzr disorders (20 sources)Anxiety; Translations: [Anxiety disorder, unspecified]Onset: 938428-57-4470HenuddzDbvywo; peripheral; and visceral artery aneurysms (4 sources)Aneurysm of other specified arteries; Translations: [ANEURYSM OTHER SPECIFIED ARTERIES]Onset: 20-37-5874AimdefhTmzzffopmo pneumonitis; food/vomitus (14 sources)Aspiration pneumonia; Translations: [Pneumonitis due to inhalation of food and vomit]Onset: 453376-75-9561BoyjivfwSrmztg (20 sources)Asthma-chronic obstructive pulmonary disease overlap syndrome; Translations: [Asthma with COPD (chronic obstructive pulmonary disease) ([facility])]Onset: 630458-73-7880BczdvqrLglffjh obstructive pulmonary disease and bronchiectasis (20 sources)Chronic obstructive pulmonary disease, unspecified; Translations: [Acute exacerbation of chronic obstructive airways disease]Onset: 12-27-2018 77-21-1073ApslwxbXzccyvdpzd and other anemia (20 sources)Iron 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; Translations: [Iron deficiency anemia secondary to blood loss (chronic)]Onset: ChronicDeficiency and other anemia (1 source)Anemia, unspecified; Translations: [ANEMIA UNSPECIFIED]Onset: 10-44-4073YyzxlyicVawxhpuz mellitus with complications (2 sources)Polyneuropathy due to type 2 diabetes mellitus; Translations: [Type 2 diabetes mellitus with diabetic polyneuropathy]63-39-2027KfjsobyZximcyvg mellitus without complication (20 sources)Type 2 diabetes mellitus without complications; Translations: [Type 2 diabetes mellitus without complication]Onset: 77-67-9420SfdjwxiOibvhlzeu of lipid metabolism (20 sources)Hyperlipidemia; Translations: [Other hyperlipidemia]Onset: 423302-10-7053EivelutDhnvyqxcam disorders (2 sources)Gastroesophageal reflux disease without esophagitis; Translations: [Gastro-esophageal reflux disease without esophagitis]27-44-5994GmawxnsZwbjqmyei hypertension (20 sources)Essential hypertension; Translations: [Essential (primary) hypertension]Onset: 913952-14-8221KlijfxoTvqf disorders (20 sources)Recurrent major depression in full remission; Translations: [Major depressive disorder, recurrent, in full remission]Onset: ChronicMood disorders (20 sources)Mood disorders; Translations: [Depression, unspecified]Onset: 201861-54-8554Mazudnlloqt deficiencies (20 sources)Vitamin D deficiency; Translations: [Vitamin D deficiency, unspecified]Onset: 374680-72-8556OzzznhvXugm wounds of extremities (4 sources)Open wound of lower limb; Translations: [Unspecified open wound, right lower leg, initial encounter]82-70-5556ClkguoyfFmvcuxqudfhtmv (15 sources)Osteoarthritis; Translations: [Unspecified osteoarthritis, unspecified site]Onset: 612709-44-1410LbwcgdwLmifh and unspecified benign neoplasm (4 sources)Benign neoplasm of cranial nerves; Translations: [BENIGN NEOPLASM OF CRANIAL NERVES]Onset: 88-87-2842TahlzxfTwyfn and unspecified benign neoplasm (20 sources)Acoustic neuroma of right vestibular nerve; Translations: [Benign neoplasm of cranial nerves]Onset: 194046-06-8250WvqymamUuhqp and unspecified benign neoplasm (2 sources)Benign neoplasm of cranial nerve; Translations: [Benign neoplasm of cranial nerves]66-77-9843ZpxwfuqMhsna and unspecified benign neoplasm (20 sources)Other benign neoplasm of skin of right ear and external auricular canal; Translations: [Benign neoplasm of ear and external auditory canal]Onset: 321336-10-0661VzrkamvsCuska circulatory disease (5 sources)Low blood pressure; Translations: [Hypotension, unspecified] 87-92-6086XcfzjnleLvjys connective tissue disease (20 sources)Recurrent falls ; Translations: [Repeated falls]Onset: 02-23-2024 56-41-2776CpiswxudNsbkw connective tissue disease (2 sources)Other bursitis of elbow, left elbow; Translations: [Other enthesopathy of elbow region]97-72-5431RhjuubgzCulct connective tissue disease (1 source)Bursitis of elbow; Translations: [Other bursitis of elbow, left elbow] 25-07-5276CppnunayVxhaa ear and sense organ disorders (20 sources)Sensorineural hearing loss in right ear; Translations: [Unspecified sensorineural hearing loss]Onset: 168962-45-2764GojoxboUzziy gastrointestinal disorders (20 sources)Occult blood in stools; Translations: [Other fecal abnormalities] Onset: 312148-48-5919FwwkxkreGadff nervous system disorders (20 sources)Spinal cord disease; Translations: [Disease of spinal cord, unspecified]Onset: 540299-07-6940CuclkokWhvpz nervous system disorders (20 sources)Disorder of nervous system; Translations: [Demyelinating disease of central nervous system, unspecified]Onset: 034333-44-1517JpxphrqNlbui nervous system disorders (1 source)Ataxia, unspecified; Translations: [ATAXIA UNSPECIFIED]Onset: 58-38-7099ObrzxlddUrqkw nervous system disorders (6 sources)Finding related to ability to move; Translations: [Other abnormalities of gait and mobility]Onset: 357126-60-4186NumjyzciSdnvp nutritional; endocrine; and metabolic disorders (1 source)Abnormal weight loss; Translations: [ABNORMAL WEIGHT LOSS]Onset: 15-54-7577LmxcoucgNmrxs screening for suspected conditions (not mental disorders or infectious disease) (20 sources)Patient encounter status; Translations: [Encounter for screening mammogram for malignant neoplasm of breast]Onset: 007825-13-0537Kcdaddey Otitis media and related conditions (2 sources)Acute non-suppurative otitis media - serous; Translations: [Acute serous otitis media, left ear]65-49-4111BlmxaxtxAkohligu codes; unclassified (5 sources)Tobacco user; Translations: [Tobacco use]61-94-0144TslupgtgXpnxfaim codes; unclassified (7 sources)Bilateral lower leg edema; Translations: [Localized edema]Onset: 606292-88-0954ScfhrydtZwdliref codes; unclassified (9 sources)Bilateral lower limb edema; Translations: [Localized edema]07-18-2025 EpisodicRespiratory failure; insufficiency; arrest (adult) (20 sources)Acute respiratory failure; Translations: [Acute respiratory failure with hypoxia]Onset: 807379-85-1113AxuljtfuVgti and subcutaneous tissue infections (10 sources)Cellulitis of left lower limb; Translations: [Cellulitis of left lower limb]Onset: 397956-03-0432UngkehmvYmcqwyawo-rvebgva disorders (20 sources)Smoker; Translations: [Nicotine dependence, unspecified, uncomplicated]Onset: 11-21-2023 Resolved: 782179-88-3890QzovzekBagagrv disorders (17 sources)Acquired hypothyroidism; Translations: [Hypothyroidism, unspecified] Onset: 197954-33-6193IlmpnwnQbejaznulthp (1 source)R60.0 - Localized edema,S81.801A - Unspecified open wound, right lower leg, initial encounter,S81.802A - Unspecified open wound, left lower leg, initial encounter Past or Other Problems Problem ClassificationProblemDateDocumented DateEpisodic/ChronicGastrointestinal hemorrhage (4 sources)Rectal hemorrhage; Translations: [Hemorrhage of anus and rectum] Onset: 800587-77-0985DouhniawCvrrmvjbi (20 sources)Influenza due to Influenza A virus; Translations: [Influenza due to other identified influenza virus with other respiratory manifestations]Onset: 12-09-2024 Resolved: 155690-24-4346GfezvynmJbtlnosmnfu deficiencies (9 sources)Iron deficiency; Translations: [Iron deficiency]Onset: 06-13-2025 19-07-4395VdteffnaCbcn wounds of head; neck; and trunk (20 sources)Scalp laceration; Translations: [Laceration without foreign body of scalp, sequela]Onset: 143549-60-7365NitqvfxoJrhjn and unspecified benign neoplasm (20 sources)Acoustic neuroma; Translations: [Benign neoplasm of cranial nerves] Onset: 01-26-2024 Resolved: 764164-89-0866JecuklaWhkjj circulatory disease (3 sources)Hypotension, unspecified; Translations: [Hypotension, unspecified] Onset: 592877-83-9233UgxcahiaUrlyixye codes; unclassified (3 sources)Tobacco use; Translations: [Tobacco use disorder]Onset: 12-09-2024 87-60-3224RhdiebkoVhkgwlbk codes; unclassified (1 source)Other specified health status; Translations: [Other specified health status]Onset: 19-26-3789KleqtdsnWaynnqidowet (4 sources)Onset: Results Test NameValueInterpretationReference RangeFacilityBasophils Auto (Bld) [#/Vol] Ordered By: La Pcak on 64-57-1206Bslscgyeb (Bld) [#/Vol]0.1 10 3/uL0.0-0.1 [facility] JacksonBasophils/100 WBC Auto (Bld)Ordered By: La Pack on 08-40-0529Aomkyxhfd/100 WBC (Bld)0.5 %0.2-2.0[facility] JacksonEosinophils/100 WBC Auto (Bld)Ordered By: La Pack on 21-97-6053Ozrdpecbpnw/100 WBC (Bld)1.0 %0.9-7.0[facility] Erythrocyte distribution width Auto (RBC) [Ratio]Ordered By: La Pack on 53-91-5989Cwqluxttoau distribution width (RBC) [Ratio]16.5 %High11.0-15.0 [facility] JacksonGlobulin Calc (S) [Mass/Vol]Ordered By: La Pack on 03-99-5663Uutldqcs (S) [Mass/Vol]4.3 g/dLHolzer Medical Center – JacksonGlomerular filtration rate (GFR) estimation in non- AmericanOrdered By: La Pack on 13-14-7644EJJ/1.73 sq M.predicted among non-blacks MDRD (S/P/Bld) [Vol rate/Area]mL/min/{1.73_m2}>=60 mL/min/1.73m 2FProMedica Toledo HospitalHematocrit Auto (Bld) [Volume fraction]Ordered By: La Pack on 20-55-5114Wyqblnbuzy (Bld) [Volume fraction]31.3 %Low36.0-48.0[facility] JacksonHemoglobin [Mass/volume] in BloodOrdered By: La Dalecarmenfariba on 40-16-9887Nttxyfkefu (Bld) [Mass/Vol]9.6 g/dLLow12.0-16.0[facility] JacksonIron binding capacity [Mass/volume] in Serum or Plasma Ordered By: La Pack on 00-86-8852Ntkk binding capacity [Mass/Vol]292.0 ug/dL250.0-450.0[facility] JacksonIron saturation [Mass Fraction] in Serum or PlasmaOrdered By: Laevan Pack on 43-85-7836Ygkc saturation [Mass fraction]13.7 %[facility] JacksonLaboratory - Chemistry and Chemistry - challengeOrdered By: La Ramone on 27-11-9122Clpbkui [Mass/Vol] 3.4 g/dL3.4-5.0[facility] – JacksonALP [Catalytic activity/Vol]119 U/JQvev06-403EjibyleqvHolzer Medical Center – JacksonALT [Catalytic activity/Vol]33 U/L 14-59[facility] JacksonAST [Catalytic activity/Vol]14 U/UBca28-54 [facility] JacksonBilirubin [Mass/Vol]0.3 mg/dL0.2-1.0[facility] JacksonCalcium [Mass/Vol]9.3 mg/dL8.5-10.1FProMedica Toledo HospitalChloride [Moles/Vol]102 mmol/O83-304DfrxfmgckHolzer Medical Center – JacksonCO2 [Moles/Vol]38.6 mmol/LHigh21.0-32.0[facility] Creatinine [Mass/Vol]0.86 mg/dL0.55-1.02[facility] Ferritin [Mass/Vol]95.0 ng/mL8.0-252.0[facility] – JacksonGFR/1.73 sq M.predicted MDRD (S/P/Bld) [Vol rate/Area]mL/min/{1.73_m2}>=60 mL/min/1.73m 2 [facility] JacksonGlucose [Mass/Vol]115 mg/zBJhbv41-936WyrlkfisgHolzer Medical Center – JacksonIron [Mass/Vol]40.0 ug/dLLow50.0-170.0[facility] – JacksonNatriuretic peptide B (Bld) [Mass/Vol]150.0 pg/mL<=900.0[facility] JacksonPotassium [Moles/Vol]4.4 mmol/L3.5-5.1FProMedica Toledo HospitalPrealbumin [Mass/Vol]21.9 mg/dL20.9-45.5FProMedica Toledo HospitalProtein [Mass/Vol]7.7 g/dL6.4-8.2FSalem City Hospitalodium [Moles/Vol]144 mmol/B497-938AyfleynceHolzer Medical Center – JacksonTransferrin [Mass/Vol]231 mg/zR783-807KioiuirvuHolzer Medical Center – JacksonComment on above: Performed at: [facility] [id number] Director: Ever Pink PhD, Phone: [phone] nitrogen [Mass/Vol]28.0 mg/dLHigh7.0-18.0[facility] JacksonUrea nitrogen/Creatinine [Mass ratio]32.6 mg/mgHolzer Medical Center – JacksonLaboratory - Hematology and Cell countsOrdered By: La Pack on 69-75-0599Opnyvvol granulocytes/100 WBC (Bld)0.3 %0.0-0.5FProMedica Toledo HospitalLeukocytes [#/volume] corrected for nucleated erythrocytes in Blood by Automated counOrdered By: La Pack on 87-81-0010HSD corrected for nucl RBC Auto (Bld) [#/Vol]9.2 10 3/uL 4.0-11.0[facility] – JacksonLymphocytes Auto (Bld) [#/Vol]Ordered By: La Pack on 37-32-3999Sxnrefxxtta (Bld) [#/Vol]0.9 10 3/uLLow1.2-3.8 [facility] – JacksonLymphocytes/100 WBC Auto (Bld)Ordered By: La Pack on 06-33-0784Lwpburktvju/100 WBC (Bld)9.6 %Low20.5-60.0[facility] Auto (RBC) [Entitic mass]Ordered By: La Pack on 58-58-2174MDZ (RBC) [Entitic mass]27.8 pg26.7-34.0[facility] Medical CenterHC Auto (RBC) [Mass/Vol]Ordered By: La Pack on 09-86-8540HOZC (RBC) [Mass/Vol]30.7 g/dL29.9-35.2FProMedica Toledo HospitalMCV Auto (RBC) [Entitic vol]Ordered By: La Pack on 76-57-2699PQG (RBC) [Entitic vol]90.7 fL81.0-99.0[facility] – JacksonMonocytes Auto (Bld) [#/Vol]Ordered By: La Pack on 26-55-5675Ldjxgilmi (Bld) [#/Vol]1.0 10 3/uL High0.3-0.8[facility] – JacksonMonocytes/100 WBC Auto (Bld)Ordered By: La Pack on 07-98-5049Tagoaprli/100 WBC (Bld)10.3 %1.7-12.0[facility] – JacksonNeutrophils Auto (Bld) [#/Vol]Ordered By: La Pack on 23-82-2674Amovzyejemc (Bld) [#/Vol]7.2 10 3/uLHigh1.4-6.5FProMedica Toledo HospitalNeutrophils/100 WBC Auto (Bld)Ordered By: La Pack on 81-31-6763Ihgdrczvvkl/100 WBC (Bld)78.3 %High43.0-75.0[facility] – JacksonNo Panel InformationOrdered By: La Pack on 39-99-1661Lggmbjdsnrb # (Auto)0.1 10 3/uL0.0-0.7FProMedica Toledo HospitalImmature Granulocyte # (Auto)0.03 10 3/uL0.00-0.03[facility] – JacksonPlatelet mean volume Auto (Bld) [Entitic vol]Ordered By: La Pack on 38-90-4718Rtngndcu mean volume (Bld) [Entitic vol]9.5 fL9.5-13.5FProMedica Toledo Hospital Platelets Auto (Bld) [#/Vol]Ordered By: La Pack on 35-01-1658Qorrxcwkh (Bld) [#/Vol]301 10 3/zE171-317CcmbugxxxHolzer Medical Center – JacksonRBC Auto (Bld) [#/Vol]Ordered By: La Pack on 68-33-5797THF (Bld) [#/Vol]3.45 10 6/uLLow 4.20-5.40[facility] Medical Centererum or plasma albumin/globulin mass ratioOrdered By: La Pack on 42-57-8969Mczaxza/Globulin [Mass ratio]0.8 {ratio}[facility] Centererum or plasma anion gap determination Ordered By: La Pack on 27-31-1732Nnzke gap [Moles/Vol]7.8 mmol/LFProMedica Toledo HospitalGlobulin Calc (S) [Mass/Vol]Ordered By: La Pack on 49-79-2118Bnzgwzpt (S) [Mass/Vol]3.9 g/dLHolzer Medical Center – Jackson Glomerular filtration rate (GFR) estimation in non- AmericanOrdered By: La Pack on 11-77-8003KKH/1.73 sq M.predicted among non-blacks MDRD (S/P/Bld) [Vol rate/Area]mL/min/{1.73_m2}>=60 mL/min/1.73m 2FProMedica Toledo HospitalLaboratory - Chemistry and Chemistry - challengeOrdered By: La Pack on 23-79-5000Mtknmqf [Mass/Vol]3.6 g/dL3.4-5.0[facility] JacksonALP [Catalytic activity/Vol]111 U/A16-591MehwhquicHolzer Medical Center – JacksonALT [Catalytic activity/Vol]29 U/E20-96ZxozwujgfHolzer Medical Center – JacksonAST [Catalytic activity/Vol]15 U/X96-14BwpdgiahlHolzer Medical Center – Jackson Bilirubin [Mass/Vol]0.3 mg/dL0.2-1.0[facility] JacksonCalcium [Mass/Vol]9.1 mg/dL8.5-10.1FProMedica Toledo HospitalChloride [Moles/Vol] 102 mmol/G13-232PkvbyrcoxHolzer Medical Center – JacksonCO2 [Moles/Vol]34.6 mmol/LHigh 21.0-32.0[facility] JacksonCreatinine [Mass/Vol]0.73 mg/dL 0.55-1.02[facility] JacksonFerritin [Mass/Vol]93.0 ng/mL8.0-252.0 [facility] JacksonGFR/1.73 sq M.predicted MDRD (S/P/Bld) [Vol rate/Area]mL/min/{1.73_m2}>=60 mL/min/1.73m 2FProMedica Toledo Hospital Glucose [Mass/Vol]107 mg/oWXmxv76-970WmjlvjtyqHolzer Medical Center – JacksonPotassium [Moles/Vol]4.2 mmol/L3.5-5.1FProMedica Toledo HospitalProtein [Mass/Vol] 7.5 g/dL6.4-8.2FSalem City Hospitalodium [Moles/Vol]144 mmol/L 136-145[facility] – JacksonUrea nitrogen [Mass/Vol]27.0 mg/dLHigh 7.0-18.0[facility] JacksonUrea nitrogen/Creatinine [Mass ratio] 37.0 mg/mgTrumbull Regional Medical Centererum or plasma albumin/globulin mass ratioOrdered By: La Pack on 85-77-6006Yprcboc/Globulin [Mass ratio]0.9 {ratio}[facility] Centererum or plasma anion gap determination Ordered By: La Pack on 37-45-9099Ooqsq gap [Moles/Vol]11.6 mmol/LFProMedica Toledo HospitalALL CBC WITH AUTO DIFFon 10-06-4737PAMQCBHXA ABSOLUTE AUTO0.1NOMS HealthcareBasophils/100 WBC (Bld)0.9 %0.2 - 2.0 %[facility] Eosinophils/100 WBC (Bld)1.3 %0.9 - 7.0 %[facility]' HospitalErythrocyte distribution width (RBC) [Ratio]15.4 %High11.0 - 15.0 %[facility]' HospitalHematocrit (Bld) [Volume fraction]39.8 %36.0 - 48.0 %[facility] HospitalHemoglobin (Bld) [Mass/Vol]12 g/dL12.0 - 16.0 g/dLHarry S. Truman Memorial Veterans' HospitalIMMATURE GRANULOCYTES ABS AUTO0.02NOHannibal Regional HospitalImmature granulocytes/100 WBC (Bld)0.3 %0.0 - 0.5 %[facility] Interpretation and review of laboratory resultsAbnormalHarry S. [facility] LYMPHOCYTES ABSOLUTE AUTO0.8LowHarry S. Truman Memorial Veterans' HospitalLymphocytes/100 WBC (Bld)11.3 %Low 20.5 - 60.0 %[facility] CenterH (RBC) [Entitic mass]27.1 pg26.7 - 34.0 pgSaint John's Regional Health CenterHC (RBC) [Mass/Vol]30.2 g/dL29.9 - 35.2 g/dLSaint John's Regional Health CenterV (RBC) [Entitic vol]89.8 fL81.0 - 99.0 fLHarry S. Truman Memorial Veterans' HospitalMONOCYTES ABSOLUTE AUTO0.5NOHannibal Regional HospitalMonocytes/100 WBC (Bld)7 %1.7 - 12.0 %[facility]' HospitalNEUTROPHILS ABSOLUTE AUTO5.5NOHannibal Regional HospitalNeutrophils/100 WBC (Bld)79.2 %High43.0 - 75.0 % [facility]' HospitalPlatelet mean volume (Bld) [Entitic vol]8.9 fLLow9.5 - 13.5 fL [facility] EO #0.1NKansas City [facility] TZJ146AMDYPike County Memorial Hospital RBC4.43 [facility] VZZ8RVPFHannibal Regional HospitalCLINISYNCNSt. Luke's Hospital THYROID STIM HORMONEon 30-79-1570EFO Qn2.663 m[IU]/LNCox MonettALL THYROXINE (T4) FREEon 65-76-9192Nrcv T4 [Mass/Vol]0.93 ng/dL0.76 - 1.46 ng/dLHarry S. Truman Memorial Veterans' HospitalNo Panel Informationon 74-75-2703RPKZMLDTPDHBH HealthcareNM ORLY PERF SPECT REST STRon 72-99-0771BfcClif[place] [address] Nuclear Medicine Report Signed Patient: JULIAN MONTAÑO MR#: [id number] : 1955 Acct:[id number] Age/Sex: 69 / F ADM Date: 02/20/25 Loc: [place] Attending Dr: Krissy Cortez M.D. Ordering Physician: Krissy Cortez M.D. Date of Service: 02/20/25 Procedure(s): NM orly perf SPECT rest str Accession Number(s): [id number] cc: La Pack FILE CONVERSION OPERATOR; Krissy Cortez M.D. Patient Name: JULIAN MONTAÑO MR#: [id number] : 1955 Exam Date: 02/20/2025 Ordering Doctor: [...] the study was pending per attending physician [facility]. For more details, please see [...] Signed By: 02/21/25 143 DD/ 30 TD/TT: Scroll Saw Operator:ABDOULadiologgeraldo, Radiologist, - 02/21/2025 [place] [address] Nuclear Medicine Report Signed Patient: JULIAN MONTAÑO MR#: [id number] : 1955 Acct:[id number] Age/Sex: 69 / F ADM Date: 02/20/25 Loc: [place] Attending Dr: Krissy Cortez M.D. Ordering Physician: Krissy Cortez M.D. Date of Service: 02/20/25 Procedure(s): NM orly perf SPECT rest str Accession Number(s): [id number] cc: La Pack FILE CONVERSION OPERATOR; Krissy Cortez M.D. Patient Name: JULIAN MONTAÑO MR#: [id number] : 1955 Exam Date: 02/20/2025 Ordering Doctor: [...] the study was pending per attending physician [facility]. For more details, please see [...] Signed By: 02/21/25 143 DD/ 1431 TD/TT: Scroll Saw Operator: [facility]' HospitalRadiology Study observation (narrative)[facility] PERF SPECT REST STROrdered By: Radiologist Radiology on 99-74-5341WHCOHarry S. Truman Memorial Veterans' Hospital Work Phone: aLL CBC WITH AUTO DIFFon 39-13-7821SPKMGYIOM ABSOLUTE AUTO0.1NOMS [facility] Medical CenterBasophils/100 WBC (Bld)0.6 %0.2 - 2.0 %[facility] Eosinophils/100 WBC (Bld)1.5 %0.9 - 7.0 %[facility]' HospitalErythrocyte distribution width (RBC) [Ratio]15.9 %High11.0 - 15.0 %[facility]' HospitalHematocrit (Bld) [Volume fraction]36.1 %36.0 - 48.0 %[facility]' HospitalHemoglobin (Bld) [Mass/Vol] 11.6 g/dLLow12.0 - 16.0 g/dLCarondelet HealthMATURE GRANULOCYTES ABS AUTO0.04 HighWashington University Medical Centermature granulocytes/100 WBC (Bld)0.4 %0.0 - 0.5 %[facility]' HospitalInterpretation and review of laboratory resultsAbnormalHarry S. [facility] LYMPHOCYTES ABSOLUTE AUTO1.6NOHannibal Regional HospitalLymphocytes/100 WBC (Bld)15.8 %Low 20.5 - 60.0 %[facility] CenterH (RBC) [Entitic mass]28.7 pg26.7 - 34.0 pgSaint John's Regional Health CenterHC (RBC) [Mass/Vol]32.1 g/dL29.9 - 35.2 g/dLNOMS HealthcareMCV (RBC) [Entitic vol]89.4 fL81.0 - 99.0 fLNOMS HealthcareMONOCYTES ABSOLUTE MCNA0Esfx NOMS HealthcareMonocytes/100 WBC (Bld)9.6 %1.7 - 12.0 %[facility] NEUTROPHILS ABSOLUTE AUTO7.4HighNOMS HealthcareNeutrophils/100 WBC (Bld)72.1 % 43.0 - 75.0 %NOMS HealthcarePlatelet mean volume (Bld) [Entitic vol]9.1 fLLow9.5 - 13.5 fLNOMS HealthcareTBH EO #0.2NOMS HealthcareTBH [id number] HealthcareTBH RBC4.04LowNOMS HealthcareTBH WBC10.2NOMS HealthcareCLINISYNCNOMS HealthcareMM TOMOSYNTHESIS SCREENING BIon 30-02-6982ZdyClif[place], [place] [address] Mammography Report Signed Patient: JULIAN MONTAÑO MR#: [id number] : 1955 Acct:[id number] Age/Sex: 69 / F ADM Date: 02/18/25 Loc: MAMMO Attending Dr: La Pack NP Ordering Physician: La Pack NP Results: Date of Service: 02/18/25 Follow Up: Procedure(s): MM tomosynthesis screening BI Accession Number(s): [id number] cc: La Pack NP Patient Name: JULIAN MONTAÑO MR#: [id number] : 1955 Exam Date: 02/18/2025 Ordering Doctor: [...] uterine cancer at age 53. LOCATION: [facility] BREAST COMPOSITION: The breasts are almost [...] Signed By: 02/18/25 1554 DD/ 1553 TD/TT: Scroll Saw Operator:TBHRadiology, Radiologist, MD - 02/18/2025 [place] [address] Mammography Report Signed Patient: JULIAN MONTAÑO MR#: [id number] : 1955 Acct:[id number] Age/Sex: 69 / F ADM Date: 02/18/25 Loc: MAMMO Attending Dr: La Pack NP Ordering Physician: La Pack NP Results: Date of Service: 02/18/25 Follow Up: Procedure(s): MM tomosynthesis screening BI Accession Number(s): [id number] cc: La Pack NP Patient Name: JULIAN MONTAÑO MR#: [id number] : 1955 Exam Date: 02/18/2025 Ordering Doctor: [...] uterine cancer at age 53. LOCATION: [facility] BREAST COMPOSITION: The breasts are almost [...] Signed By: 02/18/25 1554 DD/ 1553 TD/TT: Scroll Saw Operator: SONI HealthcareRadiology Study observation (narrative)[facility] TOMOSYNTHESIS SCREENING BIOrdered By: Radiologist Radiology on 98-95-9221OF[employer] Work Phone: alanine aminotransferase [Enzymatic activity/volume] in Serum or PlasmaOrdered By: Daniel Garza on 15-56-6667KVJ [Catalytic activity/Vol]Alanine aminotransferase [Enzymatic activity/volume] in Serum or PlasmaHigh7-52[facility] – JacksonAlbumin [Mass/volume] in Serum or Plasma by Bromocresol green (BCG) dye binding methoOrdered By: Daniel Garza on 62-95-9806Xbvfeux BCG dye [Mass/Vol]Albumin [Mass/volume] in Serum or Plasma by Bromocresol green (BCG) dye binding metho3.5-5.7FProMedica Toledo HospitalAlkaline phosphatase [Enzymatic activity/volume] in Serum or PlasmaOrdered By: Daniel Garza on 34-14-1165YBS [Catalytic activity/Vol]Alkaline phosphatase [Enzymatic activity/volume] in Serum or Zvrwdl97-069VrqvnbbbuHolzer Medical Center – JacksonAspartate aminotransferase [Enzymatic activity/volume] in Serum or Plasma Ordered By: Daniel Garza on 57-12-6064WCN [Catalytic activity/Vol]Aspartate aminotransferase [Enzymatic activity/volume] in Serum or Teyjzf28-20UhbnhkepnHolzer Medical Center – JacksonBasophils Auto (Bld) [#/Vol]Ordered By: Daniel Garza on 87-71-1368Sqpccthwm (Bld) [#/Vol]Automated basophil count0.0-0.2FProMedica Toledo HospitalBasophils/100 WBC Auto (Bld)Ordered By: Daniel Garza on 00-91-8905Qlagqpvjb/100 WBC (Bld)Automated basophil %.[facility] – JacksonBilirubin.total [Mass/volume] in Serum or PlasmaOrdered By: Daniel Garza on 64-20-6942Qjzoqelba [Mass/Vol]Bilirubin.total [Mass/volume] in Serum or Plasma0.3-1.0[facility] – JacksonCalcium [Mass/volume] in Serum or PlasmaOrdered By: Daniel Garza on 11-42-2891Cisxdky [Mass/Vol]Calcium [Mass/volume] in Serum or Plasma8.6-10.3FProMedica Toledo HospitalCarbon dioxide, total [Moles/volume] in Serum or PlasmaOrdered By: Daniel Garza on 99-16-1926LM3 [Moles/Vol]Carbon dioxide, total [Moles/volume] in Serum or Plasma 21.0-31.0[facility] – JacksonChloride [Moles/volume] in Serum or PlasmaOrdered By: Daniel Garza on 64-20-1924Cmjhzbwn [Moles/Vol]Chloride [Moles/volume] in Serum or JpnuwnUgj59-265KmgfulnhiHolzer Medical Center – Jackson Complete Blood Count Auto Diffon 15-17-7418Esrqugnfx (Bld) [#/Vol]0.0 10*3/uL Normal0.0-0.2The [facility] Physician GroupComment on above:Result Comment: PERFORMED BY: [facility] [address] [place] [address] PATHOLOGIST RAILS DEVELOPER MANDY ACUÑA M.D.Performed By: #### CMP, CBC ####[address] [place] [address] USABasophils/100 WBC (Bld)0.2 % Normal.The [facility] Physician GroupComment on above:Performed By: #### CMP, CBC ####[address] [place] [address] [place] Eosinophils (Bld) [#/Vol]0.0 10*3/uLNormal0.0-0.45The [facility] Group Comment on above:Performed By: #### CMP, CBC ####[place] [address] USAEosinophils/100 WBC (Bld)0.0 %Normal. The [facility] Physician GroupComment on above:Performed By: #### CMP, CBC ####[address] Erythrocyte distribution width (RBC) [Ratio]15.3 %Whlgen52.9-15.3The [facility] Physician GroupComment on above:Performed By: #### CMP, CBC ####[place] [address] USAHematocrit (Bld) [Volume fraction]40.4 %Kbqvzn58.0-46.4The [facility] Physician GroupComment on above:Performed By: #### CMP, CBC ####[place] [address] USAHemoglobin (Bld) [Mass/Vol]13.4 g/yBQqwfsw30.8-15.4 The [facility] Physician GroupComment on above:Performed By: #### CMP, CBC ####[place] [address] [place] Lymphocytes (Bld) [#/Vol]0.6 10*3/uLLow1.00-4.8The [facility] Comment on above:Performed By: #### CMP, CBC ####[id number] USALymphocytes/100 WBC (Bld)7.0 %Normal. The [facility] Physician GroupComment on above:Performed By: #### CMP, CBC ####[place] [address] USAMCH (RBC) [Entitic mass]28.5 uiFiboum65.7-34.3The [facility] Physician GroupComment on above:Performed By: #### CMP, CBC ####[place] [address] USAMCV (RBC) [Entitic vol]85.6 qIBjlprg95-080Zlj [facility] Physician GroupComment on above:Performed By: #### CMP, CBC ####[place] [address] USAMean Corpuscular HGB Conc33.3 g/xLDykgrk25.0-35.0The [facility] Physician GroupComment on above:Performed By: #### CMP, CBC ####[place] [address] USAMonocytes (Bld) [#/Vol]0.7 10*3/uLNormal 0.0-0.8The [facility] Physician GroupComment on above:Performed By: #### CMP, CBC ####[place] [address] [place] Monocytes/100 WBC (Bld)8.2 %Normal.The [facility] Physician GroupComment on above:Performed By: #### CMP, CBC ####[place] [address] USANeutrophils (Bld) [#/Vol]7.2 10*3/uLNormal1.8-7.7The [facility] Physician GroupComment on above:Performed By: #### CMP, CBC ####[place] [address] [place] Neutrophils/100 WBC (Bld)84.6 %Normal.The [facility] Physician GroupComment on above:Performed By: #### CMP, CBC ####[place] [address] USANRBC%0.1 /100{WBC}Normal0-0.5The [facility] Physician GroupComment on above:Performed By: #### CMP, CBC ####[place] [address] USAPlatelet mean volume (Bld) [Entitic vol]7.4 fLNormal6.3-10.7The [facility] Physician GroupComment on above: Performed By: #### CMP, CBC ####[place] [address] USAPlatelets (Bld) [#/Vol]276 10*3/iEOzdpkl161-717Dcm [facility] Physician GroupComment on above:Performed By: #### CMP, CBC ####[address] [address] USARBC (Bld) [#/Vol]4.72 10*6/uLNormal3.60-5.00The [facility] Physician GroupComment on above:Performed By: #### CMP, CBC ####[address] [address] USAWBC (Bld) [#/Vol]8.6 10*3/uLNormal3.8-11.6The [facility] Physician GroupComment on above:Performed By: #### CMP, CBC ####[address] [address] [facility] Comprehensive Metabolic Panelon 96-64-2344Kobvyne [Mass/Vol]3.7 g/dLNormal 3.5-5.7The [facility] Physician GroupComment on above:Performed By: #### CMP, CBC ####[address] [address] Albumin/Globulin [Mass ratio]1.2 {ratio}NormalThe [facility] Physician [facility] Comment on above:Performed By: #### CMP, CBC ####[address] [address] USAALP [Catalytic activity/Vol]84 U/L Lsgihe65-415Uit [facility] Physician GroupComment on above:Performed By: #### CMP, CBC ####[address] [address] USAALT [Catalytic activity/Vol]55 U/LHigh7-52The [facility]ician Group Comment on above:Performed By: #### CMP, CBC ####[address] [address] USAAnion gap [Moles/Vol]12.7 mmol/LNormal 6.0-15.0The [facility] Physician GroupComment on above:Performed By: #### CMP, CBC ####[address] [address] USAAST [Catalytic activity/Vol]29 U/VFdlegw08-08Deg [facility] Physician GroupComment on above:Performed By: #### CMP, CBC ####[address] [address] USABilirubin [Mass/Vol]0.6 mg/dLNormal0.3-1.0The [facility] Physician GroupComment on above:Performed By: #### CMP, CBC ####[address] [address] USACalcium [Mass/Vol]9.2 mg/dLNormal8.6-10.3The [facility] Physician GroupComment on above: Performed By: #### CMP, CBC ####[address] [address] USAChloride [Moles/Vol]93 mmol/XHlw25-791Xxw [facility] Physician GroupComment on above:Performed By: #### CMP, CBC ####[address] [address] USACO2 [Moles/Vol]29.4 mmol/SLaghrg90.0-31.0The [facility] Physician GroupComment on above:Performed By: #### CMP, CBC ####[address] [address] USACreatinine [Mass/Vol]0.81 mg/dLNormal0.60-1.20The [facility] Physician GroupComment on above:Performed By: #### CMP, CBC ####[address] [address] USACreatinine Clr Calc Wbxmgjir58.51 NormalThe [facility] Physician GroupComment on above:Result Comment: PERFORMED BY: [facility] [address] [place] [address] PATHOLOGIST RAILS DEVELOPER MANDY ACUÑA M.D.Performed By: #### CMP, CBC ####[address] [address] USAGFR/1.73 sq M.predicted MDRD (S/P/Bld) [Vol rate/Area]mL/min/{1.73_m2}NormalThe [facility] Comment on above:Performed By: #### CMP, CBC ####[address] USAGlobulin (S) [Mass/Vol]3.2 g/dLNormal The [facility] Physician GroupComment on above:Performed By: #### CMP, CBC ####[address] USAGlucose [Mass/Vol]145 mg/sYXxio77-350Viv [facility] Physician GroupComment on above: Result Comment: Random Glucose Reference Range is dependent on time and content of last meal. Glucose of more than 200 mg/dL in a nonstressed, ambulatory subject supports the diagnosis of Diabetes Mellitus. ADA recommended reference rangePerformed By: #### CMP, CBC ####[place] [address] USAPotassium [Moles/Vol] 4.1 mmol/LNormal3.5-5.1The [facility] Physician GroupComment on above:Performed By: #### CMP, CBC ####[address] USAProtein [Mass/Vol]6.9 g/dLNormal6.4-8.9The [facility] Comment on above:Performed By: #### CMP, CBC ####[address] USASodium [Moles/Vol]131 mmol/RMab325-488 The [facility] Physician GroupComment on above:Performed By: #### CMP, CBC ####[address] USAUrea nitrogen [Mass/Vol]24 mg/dLNormal7-25The [facility] Physician GroupComment on above:Performed By: #### CMP, CBC ####[address] USACreatinine [Mass/volume] in Serum or PlasmaOrdered By: Daniel Garza on 72-29-0087Fhjkhnismr [Mass/Vol]Creatinine [Mass/volume] in Serum or Plasma0.60-1.20[facility] – JacksonEosinophils Auto (Bld) [#/Vol]Ordered By: Daniel Garza on 88-50-1591Vtjivucgybs (Bld) [#/Vol]Automated eosinophil count0.0-0.45[facility] – JacksonEosinophils/100 WBC Auto (Bld)Ordered By: Daniel Garza on 09-26-8321Ktpdkkonhgy/100 WBC (Bld) Automated eosinophil %.[facility] – JacksonErythrocyte distribution width Auto (RBC) [Ratio]Ordered By: Daniel Garza on 00-34-4676Hibsxpjexhe distribution width (RBC) [Ratio]Erythrocyte distribution width [Ratio] by Automated count11.9-15.3FProMedica Toledo HospitalGlobulin Calc (S) [Mass/Vol]Ordered By: Daniel Garza on [id number] (S) [Mass/Vol]Serum globulin measurement by calculation (mass/volume)[facility] JacksonGlucose Glucometer (BldC) [Mass/Vol]Ordered By: Daniel Garza on 12-14-2024 Glucose [Mass/Vol]Capillary blood glucose measurement by glucometer (mass/volume)[facility] JacksonComment on above:Random Glucose Reference Range is dependent on time and content of last meal. Glucose of more than 200 mg/dL in a nonstressed, ambulatory subject supports the diagnosis of Diabetes Mellitus.Glucose Poct Glucometerson 18-12-3702Yvowdeb [Mass/Vol]236 mg/dLNoFormerly Alexander Community Hospital Physician GroupComment on above:Result Comment: Random Glucose Reference Range is dependent on time and content of last meal. Glucose of more than 200 mg/dL in a nonstressed, ambulatory subject supports the diagnosis of Diabetes Mellitus. PERFORMED BY: RODNEY [address] [place] [address] PATHOLOGIST RAILS DEVELOPER MANDY ACUÑA M.D.Performed By: #### ABG #### Point of Care testing ,Glucose [Mass/Vol]154 mg/dLNoFormerly [facility] Physician GroupComment on above: Result Comment: Random Glucose Reference Range is dependent on time and content of last meal. Glucose of more than 200 mg/dL in a nonstressed, ambulatory subject supports the diagnosis of Diabetes Mellitus. PERFORMED BY: [facility] [address] [place] [address] PATHOLOGIST RAILS DEVELOPER MANDY ACUÑA M.D.Performed By: #### GLULS #### Point of Care testing ,Glucose [Mass/Vol]105 mg/dLTallahassee Memorial HealthCare Physician GroupComment on above: Result Comment: Random Glucose Reference Range is dependent on time and content of last meal. Glucose of more than 200 mg/dL in a nonstressed, ambulatory subject supports the diagnosis of Diabetes Mellitus. PERFORMED BY: [facility] [address] [place] [address] PATHOLOGIST RAILS DEVELOPER MANDY ACUÑA M.D.Performed By: #### ABG #### Point of Care testing ,Glucose [Mass/volume] in Serum or PlasmaOrdered By: Daniel Garza on 12-14-2024 Glucose [Mass/Vol]Glucose [Mass/volume] in Serum or YruqmgXcjf82-193DhxtxpyiyHolzer Medical Center – JacksonComment on above:ADA recommended reference rangeRandom Glucose Reference Range is dependent on time and content of last meal. Glucose of more than 200 mg/dL in a nonstressed, ambulatory subject supports the diagnosisof Diabetes Mellitus.Hematocrit Auto (Bld) [Volume fraction]Ordered By: Daniel Garza on 50-93-4863Eacghtueah (Bld) [Volume fraction]Hematocrit [Volume Fraction] of Blood by Automated count34.0-46.4FProMedica Toledo Hospital Hemoglobin [Mass/volume] in BloodOrdered By: Daniel Garza on 11-12-5982Oamnwesduj (Bld) [Mass/Vol]Hemoglobin [Mass/volume] in Blood11.8-15.4FProMedica Toledo HospitalLeukocytes [#/volume] corrected for nucleated erythrocytes in Blood by Automated counOrdered By: Daniel Garza on 73-97-1439MCX corrected for nucl RBC Auto (Bld) [#/Vol]Leukocytes [#/volume] corrected for nucleated erythrocytes in Blood by Automated coun3.8-11.6FProMedica Toledo Hospital Lymphocytes Auto (Bld) [#/Vol]Ordered By: Daniel Garza on 75-50-3208Ummydnpypmg (Bld) [#/Vol]Lymphocytes [#/volume] in Blood by Automated countLow1.00-4.8 [facility] – JacksonLymphocytes/100 WBC Auto (Bld)Ordered By: Daniel Garza on 03-43-2666Sguecwyjnbp/100 WBC (Bld)Lymphocytes/100 leukocytes in Blood by Automated count.[facility] – JacksonMCH Auto (RBC) [Entitic mass]Ordered By: Daniel Garza on 33-05-0958IQK (RBC) [Entitic mass]MCH [Entitic mass] by Automated count24.7-34.3FProMedica Toledo HospitalMCHC Auto (RBC) [Mass/Vol]Ordered By: Daniel Garza on 68-76-8843WFJE (RBC) [Mass/Vol]MCHC [Mass/volume] by Automated count32.0-35.0[facility] – JacksonMCV Auto (RBC) [Entitic vol]Ordered By: Daniel Garza on 06-66-3828RVP (RBC) [Entitic vol]MCV [Entitic volume] by Automated vzxaw78-466TtydpjzowHolzer Medical Center – JacksonMonocytes Auto (Bld) [#/Vol]Ordered By: Daniel Garza on 03-03-3573Bvplccekt (Bld) [#/Vol]Automated blood monocyte count0.0-0.8[facility] – JacksonMonocytes/100 WBC Auto (Bld)Ordered By: Daniel Garza on 12-14-2024 Monocytes/100 WBC (Bld)Automated monocyte %.[facility] Neutrophils Auto (Bld) [#/Vol]Ordered By: Daniel Garza on 68-79-0372Otxjmatecfe (Bld) [#/Vol]Neutrophils [#/volume] in Blood by Automated count1.8-7.7FProMedica Toledo HospitalNeutrophils/100 WBC Auto (Bld)Ordered By: Daniel Garza on 39-58-8151Zcxpzyfxawl/100 WBC (Bld)Automated neutrophil %.[facility] – JacksonNo Panel InformationOrdered By: Daniel Garza on 52-83-9558Htjpanmaj GFR (CKD-EPI)> 60.0 mL/MinHolzer Medical Center – JacksonPharmacy Creatinine Clearance (Chem66.51[facility] – JacksonNucleated erythrocytes [Presence] in Blood by Automated countOrdered By: Daniel Garza on 12-14-2024 Nucleated RBC Auto Ql (Bld)Nucleated erythrocytes [Presence] in Blood by Automated count0-0.5FProMedica Toledo HospitalPlatelet mean volume Auto (Bld) [Entitic vol]Ordered By: Daniel Garza on 30-03-6112Qbjptoin mean volume (Bld) [Entitic vol]Platelet mean volume [Entitic volume] in Blood by Automated count6.3-10.7FProMedica Toledo HospitalPlatelets Auto (Bld) [#/Vol] Ordered By: Daniel Garza on 31-34-5005Jitumtxlv (Bld) [#/Vol]Platelets [#/volume] in Blood by Automated zpien593-556KsiajnhvqHolzer Medical Center – JacksonPotassium [Moles/volume] in Serum or PlasmaOrdered By: Daniel Garza on 77-91-2585Nyhrcauar [Moles/Vol]Potassium [Moles/volume] in Serum or Plasma3.5-5.1FProMedica Toledo HospitalProtein [Mass/volume] in Serum or PlasmaOrdered By: Daniel Garza on 72-30-4738Asxlfpe [Mass/Vol]Protein [Mass/volume] in Serum or Plasma6.4-8.9 [facility] – JacksonRBC Auto (Bld) [#/Vol]Ordered By: Daniel Garza on 19-09-0270LNH (Bld) [#/Vol]Erythrocytes [#/volume] in Blood by Automated count3.60-5.00[facility] Medical Centererum or plasma albumin/globulin mass ratioOrdered By: Daniel Garza on 46-18-8117Gwuguog/Globulin [Mass ratio] Serum or plasma albumin/globulin mass ratioHolzer Medical Center – Jackson Serum or plasma anion gap determinationOrdered By: Daniel Garza on 12-14-2024 Anion gap [Moles/Vol]Serum or plasma anion gap determination6.0-15.0Fire[facility] Medical CenterSodium [Moles/volume] in Serum or PlasmaOrdered By: Daniel Garza on 74-61-8645Oigswa [Moles/Vol]Sodium [Moles/volume] in Serum or Plasma Fph876-648VwigsysxaHolzer Medical Center – JacksonUrea nitrogen [Mass/volume] in Serum or PlasmaOrdered By: Daniel Garza on 15-83-4212Yqsl nitrogen [Mass/Vol]Urea nitrogen [Mass/volume] in Serum or Plasma7-25[facility] WBC Auto (Bld) [#/Vol]Ordered By: Daniel Garza on 92-12-0571YKK (Bld) [#/Vol] Leukocytes [#/volume] in Blood by Automated count3.8-11.6FProMedica Toledo HospitalComplete Blood Count Auto Diffon 44-41-7761Qcyedhpxa (Bld) [#/Vol] 0.0 10*3/uLNormal0.0-0.2The [facility] Physician GroupComment on above:Result Comment: PERFORMED BY: [facility] [address] [place] [address] PATHOLOGIST RAILS DEVELOPER MANDY ACUÑA M.D.Performed By: #### CBC, CMP ####[place] [address] USABasophils/100 WBC (Bld)0.1 % Normal.The [facility] Physician GroupComment on above:Performed By: #### CBC, CMP ####[place] [address] [place] Eosinophils (Bld) [#/Vol]0.0 10*3/uLNormal0.0-0.45The [facility] Physician Group Comment on above:Performed By: #### CBC, CMP ####[place] [address] USAEosinophils/100 WBC (Bld)0.0 %Normal. The [facility] Physician GroupComment on above:Performed By: #### CBC, CMP ####[address] Erythrocyte distribution width (RBC) [Ratio]15.4 %High11.9-15.3The [facility] Physician GroupComment on above:Performed By: #### CBC, CMP ####[place] [address] USAHematocrit (Bld) [Volume fraction]40.5 %Blvefk14.0-46.4The [facility] Physician GroupComment on above:Performed By: #### CBC, CMP ####[place] [address] USAHemoglobin (Bld) [Mass/Vol]13.4 g/wNPaemdh58.8-15.4 The [facility] Physician GroupComment on above:Performed By: #### CBC, CMP ####[place] [address] [place] Lymphocytes (Bld) [#/Vol]0.7 10*3/uLLow1.00-4.8The [facility] Physician Group Comment on above:Performed By: #### CBC, CMP ####[place] [address] USALymphocytes/100 WBC (Bld)6.4 %Normal. The [facility] Physician GroupComment on above:Performed By: #### CBC, CMP ####[place] [address] USAMCH (RBC) [Entitic mass]28.5 eqFkrqvi01.7-34.3The [facility] Physician GroupComment on above:Performed By: #### CBC, CMP ####[place] [address] USAMCV (RBC) [Entitic vol]86.4 dIIevmku17-103Rkb [facility] Physician GroupComment on above:Performed By: #### CBC, CMP ####[place] [address] USAMean Corpuscular HGB Conc33.0 g/iXFvlmsg06.0-35.0The [facility] Physician GroupComment on above:Performed By: #### CBC, CMP ####[place] [address] USAMonocytes (Bld) [#/Vol]0.7 10*3/uLNormal 0.0-0.8The [facility] Physician GroupComment on above:Performed By: #### CBC, CMP ####[place] [address] [place] Monocytes/100 WBC (Bld)6.5 %Normal.The [facility] Physician GroupComment on above:Performed By: #### CBC, CMP ####[place] [address] USANeutrophils (Bld) [#/Vol]9.3 10*3/uLHigh1.8-7.7The [facility] Physician GroupComment on above:Performed By: #### CBC, CMP ####[place] [address] [place] Neutrophils/100 WBC (Bld)87.0 %Normal.The [facility] Physician GroupComment on above:Performed By: #### CBC, CMP ####[place] [address] USANRBC%0.1 /100{WBC}Normal0-0.5The [facility] Physician GroupComment on above:Performed By: #### CBC, CMP ####[place] [address] USAPlatelet mean volume (Bld) [Entitic vol]7.3 fLNormal6.3-10.7The [facility] Physician GroupComment on above: Performed By: #### CBC, CMP ####[place] [address] USAPlatelets (Bld) [#/Vol]302 10*3/gBUtsdbm872-918Qfl [facility] Physician GroupComment on above:Performed By: #### CBC, CMP ####[place] [address] USARBC (Bld) [#/Vol]4.68 10*6/uLNormal3.60-5.00The [facility] Physician GroupComment on above:Performed By: #### CBC, CMP ####[address] [address] USAWBC (Bld) [#/Vol]10.6 10*3/uLNormal3.8-11.6The [facility] Physician GroupComment on above:Performed By: #### CBC, CMP ####[address] [address] [facility] Comprehensive Metabolic Panelon 33-78-8116Kvchtbm [Mass/Vol]3.8 g/dLNormal 3.5-5.7The [facility] Physician GroupComment on above:Performed By: #### CBC, CMP ####[address] [address] [facility] Albumin/Globulin [Mass ratio]1.2 {ratio}NormalThe [facility] Physician [facility] Comment on above:Performed By: #### CBC, CMP ####[address] [address] USAALP [Catalytic activity/Vol]84 U/L Eplafi30-981Sml [facility] Physician GroupComment on above:Performed By: #### CBC, CMP ####[address] [address] USAALT [Catalytic activity/Vol]65 U/LHigh7-52The [facility] Physician [facility] Comment on above:Performed By: #### CBC, CMP ####[address] [address] USAAnion gap [Moles/Vol]14.3 mmol/LNormal 6.0-15.0The [facility] Physician GroupComment on above:Performed By: #### CBC, CMP ####[address] [address] USAAST [Catalytic activity/Vol]38 U/OGxilhd86-17Brl [facility] Physician GroupComment on above:Performed By: #### CBC, CMP ####[address] [address] USABilirubin [Mass/Vol]0.5 mg/dLNormal0.3-1.0The [facility] Physician GroupComment on above:Performed By: #### CBC, CMP ####[address] [address] USACalcium [Mass/Vol]8.9 mg/dLNormal8.6-10.3The [facility] Physician GroupComment on above: Performed By: #### CBC, CMP ####[address] [address] USAChloride [Moles/Vol]95 mmol/JNqf44-178Sfv [facility] Physician GroupComment on above:Performed By: #### CBC, CMP ####[address] [address] USACO2 [Moles/Vol]30.8 mmol/GQrktts27.0-31.0The [facility] Physician GroupComment on above:Performed By: #### CBC, CMP ####[address] [address] USACreatinine [Mass/Vol]0.99 mg/dLNormal0.60-1.20The [facility] Physician GroupComment on above:Performed By: #### CBC, CMP ####[place] [id number] USACreatinine Clr Calc Ttrhqpqo08.42 NormalThe [facility] Physician GroupComment on above:Result Comment: PERFORMED BY: [address] [place] [address] PATHOLOGIST RAILS DEVELOPER MANDY ACUÑA M.D.Performed By: #### CBC, CMP ####[place] [id number] USAGFR/1.73 sq M.predicted MDRD (S/P/Bld) [Vol rate/Area]mL/min/{1.73_m2}NormalThe [facility] Physician Group Comment on above:Performed By: #### CBC, CMP ####[address] [address] USAGlobulin (S) [Mass/Vol]3.1 g/dLNormal The [facility] Physician GroupComment on above:Performed By: #### CBC, CMP ####[place] [id number] USAGlucose [Mass/Vol]97 mg/hAMutwhc05-260Gba [facility] Physician GroupComment on above: Result Comment: Random Glucose Reference Range is dependent on time and content of last meal. Glucose of more than 200 mg/dL in a nonstressed, ambulatory subject supports the diagnosis of Diabetes Mellitus. ADA recommended reference rangePerformed By: #### CBC, CMP ####[place] [id number] USAPotassium [Moles/Vol] 4.1 mmol/LNormal3.5-5.1The [facility] Physician [facility] CenterComment on above:Performed By: #### CBC, CMP ####[place] [id number] USAProtein [Mass/Vol]6.9 g/dLNormal6.4-8.9The [facility] Physician [facility] Comment on above:Performed By: #### CBC, CMP ####[place] [address] USASodium [Moles/Vol]136 mmol/LNormal 136-145The [facility] Physician [facility] CenterComment on above:Performed By: #### CBC, CMP ####[place] [id number] USAUrea nitrogen [Mass/Vol]22 mg/dLNormal7-25The [facility] Physician [facility] CenterComment on above:Performed By: #### CBC, CMP ####[place] [id number] USAGlucose Poct Glucometerson 52-80-9950Weuxqdp9Ncd3: Cleaned MeterNoFormerly [facility] Physician [facility] CenterComment on above:Result Comment: PERFORMED BY: [place] [id number] PATHOLOGIST RAILS DEVELOPER MANDY ACUÑA M.D.Performed By: #### GLULS ####Point of Care testing, Glucose [Mass/Vol]277 mg/dLNoFormerly [facility] Physician [facility] CenterComment on above: Result Comment: Random Glucose Reference Range is dependent on time and content of last meal. Glucose of more than 200 mg/dL in a nonstressed, ambulatory subject supports the diagnosis of Diabetes Mellitus.Performed By: #### GLULS ####Point of Care testing,Glucose [Mass/Vol]141 mg/dLNoFormerly [facility] Physician GroupComment on above:Result Comment: Random Glucose Reference Range is dependent on time and content of last meal. Glucose of more than 200 mg/dL in a nonstressed, ambulatory subject supports the diagnosis of Diabetes Mellitus. PERFORMED BY: [place] [id number] PATHOLOGIST RAILS DEVELOPER MANDY ACUÑA M.D.Performed By: #### GLULS ####Point of Care testing, Glucose [Mass/Vol]150 mg/dLTallahassee Memorial HealthCare Physician GroupComment on above: Result Comment: Random Glucose Reference Range is dependent on time and content of last meal. Glucose of more than 200 mg/dL in a nonstressed, ambulatory subject supports the diagnosis of Diabetes Mellitus. PERFORMED BY: [facility] [address] [place] [address] PATHOLOGIST RAILS DEVELOPER MADNY ACUÑA M.D.Performed By: #### GLULS #### Point of Care testing ,Glucose [Mass/Vol]117 mg/dLNoFormerly [facility] Physician GroupComment on above: Result Comment: Random Glucose Reference Range is dependent on time and content of last meal. Glucose of more than 200 mg/dL in a nonstressed, ambulatory subject supports the diagnosis of Diabetes Mellitus. PERFORMED BY: [facility] [address] [place] [address] PATHOLOGIST RAILS DEVELOPER MANDY ACUÑA M.D.Performed By: #### GLULS ####Point of Care testing,No Panel InformationOrdered By: Daniel Garza on 45-78-1268Aokhpsw Glucose Comment Glu2: cleaned [facility] HospitalComplete Blood Count Auto Diffon 58-49-3520Wbzmecnzq (Bld) [#/Vol]0.0 10*3/uLNormal0.0-0.2The [facility] Physician GroupComment on above:Result Comment: PERFORMED BY: [facility] [address] [place] [address] PATHOLOGIST RAILS DEVELOPER MANDY ACUÑA M.D.Performed By: #### ABG #### Point of Care testing ,Basophils/100 WBC (Bld)0.0 %Normal.The [facility] Physician GroupComment on above:Performed By: #### ABG #### Point of Care testing ,Eosinophils (Bld) [#/Vol]0.0 10*3/uLNormal0.0-0.45The [facility] Physician Group Comment on above:Performed By: #### ABG #### Point of Care testing ,Eosinophils/100 WBC (Bld)0.0 %Normal.The [facility] Physician GroupComment on above:Performed By: #### ABG #### Point of Care testing ,Erythrocyte distribution width (RBC) [Ratio]15.8 %High11.9-15.3The [facility] Physician GroupComment on above:Performed By: #### ABG #### Point of Care testing ,Hematocrit (Bld) [Volume fraction]34.5 %Dpncwd01.0-46.4The [facility] Physician GroupComment on above:Performed By: #### ABG #### Point of Care testing ,Hemoglobin (Bld) [Mass/Vol]11.3 g/dLLow11.8-15.4The [facility] Physician [facility] Comment on above:Performed By: #### ABG #### Point of Care testing ,Lymphocytes (Bld) [#/Vol]0.3 10*3/uLLow1.00-4.8The [facility] Physician Group Comment on above:Performed By: #### ABG #### Point of Care testing ,Lymphocytes/100 WBC (Bld)2.2 %Normal.The [facility] Physician GroupComment on above:Performed By: #### ABG #### Point of Care testing ,MCH (RBC) [Entitic mass]28.0 laCpghwg05.7-34.3The [facility] Physician Group Comment on above:Performed By: #### ABG #### Point of Care testing ,MCV (RBC) [Entitic vol]85.4 tCOeqngc15-235Ove [facility] Physician GroupComment on above:Performed By: #### ABG #### Point of Care testing ,Mean Corpuscular HGB Conc32.8 g/oHBcwlwq43.0-35.0The [facility] Physician [facility] Comment on above:Performed By: #### ABG #### Point of Care testing ,Monocytes (Bld) [#/Vol]0.6 10*3/uLNormal0.0-0.8The [facility]ician Group Comment on above:Performed By: #### ABG #### Point of Care testing ,Monocytes/100 WBC (Bld)4.8 %Normal.The [facility] Physician GroupComment on above:Performed By: #### ABG #### Point of Care testing ,Neutrophils (Bld) [#/Vol]10.8 10*3/uLHigh1.8-7.7The [facility] Physician [facility] Comment on above:Performed By: #### ABG #### Point of Care testing ,Neutrophils/100 WBC (Bld)93.0 %Normal.The [facility] Physician GroupComment on above:Performed By: #### ABG #### Point of Care testing ,NRBC%0.0 /100{WBC}Normal0-0.5The [facility] Physician GroupComment on above: Performed By: #### ABG #### Point of Care testing ,Platelet mean volume (Bld) [Entitic vol]7.4 fLNormal6.3-10.7The [facility] Physician GroupComment on above:Performed By: #### ABG #### Point of Care testing ,Platelets (Bld) [#/Vol]282 10*3/cRGjreuh181-106Iff [facility] Physician [facility] Comment on above:Performed By: #### ABG #### Point of Care testing ,RBC (Bld) [#/Vol]4.04 10*6/uLNormal3.60-5.00The [facility] Physician [facility] Comment on above:Performed By: #### ABG #### Point of Care testing ,WBC (Bld) [#/Vol]11.6 10*3/uLNormal3.8-11.6The [facility] Physician GroupComment on above:Performed By: #### ABG #### Point of Care testing ,Comprehensive Metabolic Panelon 63-20-3479Sbubgjs [Mass/Vol]3.6 g/dLNormal 3.5-5.7The [facility] Physician GroupComment on above:Performed By: #### PHOS, CMP ####[place] [id number] [facility] Albumin/Globulin [Mass ratio]1.3 {ratio}NormalThe [facility] Physician [facility] Comment on above:Performed By: #### PHOBarbara, CMP ####[address] [address] USAALP [Catalytic activity/Vol]72 U/L Ojtvuu19-364Woj [facility] Physician [facility] CenterComment on above:Performed By: #### PHOBarbara, CMP ####[address] [address] [place]ALT [Catalytic activity/Vol]67 U/LHigh7-52The [facility] Physician [facility] Comment on above:Performed By: #### PHOBarbara, CMP ####[address] [address] USAAnion gap [Moles/Vol]12.5 mmol/LNormal 6.0-15.0The [facility] Physician GroupComment on above:Performed By: #### PHOS, CMP ####[address] [address] USAAST [Catalytic activity/Vol]41 U/BKjbp73-10Xgq [facility] Physician [facility] CenterComment on above:Performed By: #### PHOS, CMP ####[address] [address] USABilirubin [Mass/Vol]0.4 mg/dLNormal0.3-1.0The [facility] Physician GroupComment on above:Performed By: #### PHOS, CMP ####[address] [address] USACalcium [Mass/Vol]8.3 mg/dLLow8.6-10.3The [facility] Physician GroupComment on above: Performed By: #### LUCY, CMP ####[place] [address] USAChloride [Moles/Vol]101 mmol/YYaifso31-631Txq [facility] Physician GroupComment on above:Performed By: #### LUCY, CMP ####[place] [address] USACO2 [Moles/Vol]29.2 mmol/NFofmzi06.0-31.0The [facility] Physician GroupComment on above:Performed By: #### LUCY, CMP ####[place] [address] USACreatinine [Mass/Vol]0.65 mg/dLNormal0.60-1.20ThFranklin County Medical Center Physician GroupComment on above:Performed By: #### LUCY, CMP ####[place] [address] [place] Creatinine Clr Calc Qbkyhrqc08.88NormPalmetto General Hospital Physician [facility] CenterComment on above:Performed By: #### LUCY, CMP ####[place] [address] USAGFR/1.73 sq M.predicted MDRD (S/P/Bld) [Vol rate/Area]mL/min/{1.73_m2}NormalThe [facility] Physician GroupComment on above: Performed By: #### LUCY, CMP ####[place] [id number] USAGlobulin (S) [Mass/Vol]2.7 g/dLNormPalmetto General Hospital Physician [facility] CenterComment on above:Performed By: #### LUCY, CMP ####[place] [id number] USAGlucose [Mass/Vol]123 mg/xRGahi37-958Giq [facility] Physician GroupComment on above:Result Comment: Random Glucose Reference Range is dependent on time and content of last meal. Glucose of more than 200 mg/dL in a nonstressed, ambulatory subject supports the diagnosis of Diabetes Mellitus. ADA recommended reference rangePerformed By: #### PHOS, CMP ####[place] [address] [place] [address] USAPotassium [Moles/Vol] 3.7 mmol/LNormal3.5-5.1The [facility] Physician [facility] CenterComment on above:Performed By: #### PHOS, CMP ####[place] [id number] USAProtein [Mass/Vol]6.3 g/dLLow6.4-8.9The [facility] Physician [facility] Comment on above:Performed By: #### PHOS, CMP ####[place] [address] USASodium [Moles/Vol]139 mmol/LNormal 136-145The [facility] Physician GroupComment on above:Performed By: #### PHOS, CMP ####[place] [id number] [place] Urea nitrogen [Mass/Vol]16 mg/dLNormal7-25The [facility] Physician GroupComment on above:Performed By: #### PHOS, CMP ####[place] [id number] USAGlucose Poct Glucometerson 31-09-9173Ckudqrz6 Glu2: Cleaned MeterNoThe Surgical Hospital at SouthwoodsComment on above:Result Comment: PERFORMED BY: [facility] [address] [place] [id number] PATHOLOGIST RAILS DEVELOPER MANDY ACUÑA M.D.Performed By: #### GLULS #### Point of Care testing ,Glucose [Mass/Vol]114 mg/dLTallahassee Memorial HealthCare Physician [facility] CenterComment on above: Result Comment: Random Glucose Reference Range is dependent on time and content of last meal. Glucose of more than 200 mg/dL in a nonstressed, ambulatory subject supports the diagnosis of Diabetes Mellitus.Performed By: #### GLULS #### Point of Care testing ,Glucose [Mass/Vol]107 mg/dLTallahassee Memorial HealthCare Physician GroupComment on above: Result Comment: Random Glucose Reference Range is dependent on time and content of last meal. Glucose of more than 200 mg/dL in a nonstressed, ambulatory subject supports the diagnosis of Diabetes Mellitus. PERFORMED BY: [place] [id number] PATHOLOGIST RAILS DEVELOPER MANDY ACUÑA M.D.Performed By: #### GLULS ####Point of Care testing, Glucose [Mass/Vol]177 mg/dLTallahassee Memorial HealthCare Physician GroupComment on above: Result Comment: Random Glucose Reference Range is dependent on time and content of last meal. Glucose of more than 200 mg/dL in a nonstressed, ambulatory subject supports the diagnosis of Diabetes Mellitus. PERFORMED BY: [place] [id number] PATHOLOGIST RAILS DEVELOPER MANDY ACUÑA M.D.Performed By: #### GLULS #### Point of Care testing ,Glucose [Mass/Vol]150 mg/dLNoFormerly [facility] Physician GroupComment on above: Result Comment: Random Glucose Reference Range is dependent on time and content of last meal. Glucose of more than 200 mg/dL in a nonstressed, ambulatory subject supports the diagnosis of Diabetes Mellitus. PERFORMED BY: [place] [id number] PATHOLOGIST RAILS DEVELOPER MANDY ACUÑA M.D.Performed By: #### GLULS #### Point of Care testing ,Phosphate [Mass/volume] in Serum or PlasmaOrdered By: Daniel Garza on 12-12-2024 Phosphate [Mass/Vol]Phosphate [Mass/volume] in Serum or PlasmaLow2.5-4.5 [facility] JacksonPhosphoruson 43-98-4480Bxeoqzcnq [Mass/Vol]2.0 mg/dLLow2.5-4.5The [facility] Physician GroupComment on above:Result Comment: PERFORMED BY: [place] [id number] PATHOLOGIST RAILS DEVELOPER MANDY ACUÑA M.D.Performed By: #### PHOS, CMP ####[facility] [place] [address] USAArterial Blood Gason 59-87-8814SWI Base Excess-3.0 mmol/LNormal-3.0-3.0[facility] Physician Group Comment on above:Performed By: #### ABG #### Point of Care testing ,ABG Frac Inspired O255 %NormalThe [facility] Physician GroupComment on above: Performed By: #### ABG #### Point of Care testing ,ABG Oxygen Content6.9 mmol/LNormal6.6-9.7The [facility] Physician GroupComment on above:Performed By: #### ABG #### Point of Care testing ,ABG Oxygen Ymbfyznsju82.1 %Kidase09.0-100.0The [facility] Physician GroupComment on above:Performed By: #### ABG #### Point of Care testing ,ABG RNI873.3 mm[Hg]Pkglmy56.0-45.0The [facility] Physician GroupComment on above:Performed By: #### ABG #### Point of Care testing ,ABG PEEP8 mkR57WfhovnXkm [facility] Physician GroupComment on above:Performed By: #### ABG #### Point of Care testing ,ABG PH7.73Xsklqc2.35-7.45The [facility] Physician GroupComment on above: Performed By: #### ABG #### Point of Care testing ,ABG RU1209.0 mm[Hg]Off scale high80.0-100.0The [facility] Physician GroupComment on above:Performed By: #### ABG #### Point of Care testing ,ABG TV420 mLNormalThe [facility] Physician GroupComment on above:Performed By: #### ABG #### Point of Care testing ,Respiratory CriticalNormPalmetto General Hospital Physician GroupComment on above:Result Comment: Critical Value called on: 12/11/2024 at 04:26 PERFORMED BY: [facility] [address] [place] [address] PATHOLOGIST RAILS DEVELOPER MANDY ACUÑA M.D.Performed By: #### ABG #### Point of Care testing ,Set Respiratory Surh15HlquixTujTallahassee Memorial HealthCare Physician GroupComment on above: Performed By: #### ABG #### Point of Care testing ,VBG Draw SiteLeft RadialTallahassee Memorial HealthCare Physician GroupComment on above: Performed By: #### ABG #### Point of Care testing ,Ventilator ModeACTallahassee Memorial HealthCare Physician GroupComment on above:Performed By: #### ABG #### Point of Care testing ,Arterial Blood GasOrdered By: Daniel Garza on 81-29-6496IT2 [Moles/Vol]23.4 mmol/PIoqikn67.0-27.0[facility] – JacksonComment on above:Performed By: #### ABG #### Point of Care testing ,HCO3 (Bld) [Moles/Vol]22.2 mmol/LLow23.0-29.0[facility] Comment on above:Performed By: #### ABG #### Point of Care testing ,Complete Blood Count Auto Diffon 08-49-6634Gtweqndvs (Bld) [#/Vol]0.1 10*3/uL Normal0.0-0.2The [facility] Physician GroupComment on above:Result Comment: PERFORMED BY: [facility] [address] [place] [address] PATHOLOGIST RAILS DEVELOPER MANDY ACUÑA M.D.Performed By: #### GLULS #### Point of Care testing ,Basophils/100 WBC (Bld)0.4 %Normal.The [facility] Physician GroupComment on above:Performed By: #### GLULS #### Point of Care testing ,Eosinophils (Bld) [#/Vol]0.0 10*3/uLNormal0.0-0.45The [facility] Physician [facility] Comment on above:Performed By: #### GLULS #### Point of Care testing ,Eosinophils/100 WBC (Bld)0.0 %Normal.The [facility] Physician GroupComment on above:Performed By: #### GLULS #### Point of Care testing ,Erythrocyte distribution width (RBC) [Ratio]16.3 %High11.9-15.3The [facility] Physician GroupComment on above:Performed By: #### GLULS #### Point of Care testing ,Hematocrit (Bld) [Volume fraction]32.9 %Low34.0-46.4The [facility] Physician GroupComment on above:Performed By: #### GLULS #### Point of Care testing ,Hemoglobin (Bld) [Mass/Vol]10.8 g/dLLow11.8-15.4The [facility] Comment on above:Performed By: #### GLULS #### Point of Care testing ,Lymphocytes (Bld) [#/Vol]0.3 10*3/uLLow1.00-4.8The [facility]ician Group Comment on above:Performed By: #### GLULS #### Point of Care testing ,Lymphocytes/100 WBC (Bld)1.7 %Normal.The [facility] Physician GroupComment on above:Performed By: #### GLULS #### Point of Care testing ,MCH (RBC) [Entitic mass]28.9 xiBlmdkn89.7-34.3The [facility] Comment on above:Performed By: #### GLULS #### Point of Care testing ,MCV (RBC) [Entitic vol]87.9 hGPldlgc12-781Njr [facility] Physician GroupComment on above:Performed By: #### GLULS #### Point of Care testing ,Mean Corpuscular HGB Conc32.9 g/wCRgcfvw94.0-35.0The [facility] Physician [facility] Comment on above:Performed By: #### GLULS #### Point of Care testing ,Monocytes (Bld) [#/Vol]0.5 10*3/uLNormal0.0-0.8The [facility]ician [facility] Comment on above:Performed By: #### GLULS #### Point of Care testing ,Monocytes/100 WBC (Bld)3.4 %Normal.The [facility] Physician GroupComment on above:Performed By: #### GLULS #### Point of Care testing ,Neutrophils (Bld) [#/Vol]14.5 10*3/uLHigh1.8-7.7The [facility] Comment on above:Performed By: #### GLULS #### Point of Care testing ,Neutrophils/100 WBC (Bld)94.5 %Normal.The [facility] Physician GroupComment on above:Performed By: #### GLULS #### Point of Care testing ,NRBC%0.0 /100{WBC}Normal0-0.5The [facility] Physician GroupComment on above: Performed By: #### GLULS #### Point of Care testing ,Platelet mean volume (Bld) [Entitic vol]7.2 fLNormal6.3-10.7The [facility] Physician GroupComment on above:Performed By: #### GLULS #### Point of Care testing ,Platelets (Bld) [#/Vol]244 10*3/fZFcsqvi252-277Goa [facility] Physician [facility] Comment on above:Performed By: #### GLULS #### Point of Care testing ,RBC (Bld) [#/Vol]3.74 10*6/uLNormal3.60-5.00The [facility] Physician [facility] Comment on above:Performed By: #### GLULS #### Point of Care testing ,WBC (Bld) [#/Vol]15.4 10*3/uLHigh3.8-11.6The [facility] Physician GroupComment on above:Performed By: #### GLULS #### Point of Care testing ,Comprehensive Metabolic Panelon 16-26-5697Nsdkpuj [Mass/Vol]3.4 g/dLLow3.5-5.7 The [facility] Physician GroupComment on above:Performed By: #### GLULS #### Point of Care testing ,Albumin/Globulin [Mass ratio]1.6 {ratio}NormalThe [facility] Physician [facility] Comment on above:Performed By: #### GLULS #### Point of Care testing ,ALP [Catalytic activity/Vol]69 U/DGzypvq40-082Lhi [facility]ician Group Comment on above:Performed By: #### GLULS #### Point of Care testing ,ALT [Catalytic activity/Vol]76 U/LHigh7-52The [facility] Physician GroupComment on above:Performed By: #### GLULS #### Point of Care testing ,Anion gap [Moles/Vol]11.6 mmol/LNormal6.0-15.0[facility] Physician [facility] Comment on above:Performed By: #### GLULS #### Point of Care testing ,AST [Catalytic activity/Vol]49 U/EVafd89-98Wzi [facility] Physician GroupComment on above:Performed By: #### GLULS #### Point of Care testing ,Bilirubin [Mass/Vol]0.4 mg/dLNormal0.3-1.0The [facility] Physician GroupComment on above:Performed By: #### GLULS #### Point of Care testing ,Calcium [Mass/Vol]8.1 mg/dLLow8.6-10.3The [facility] Physician GroupComment on above:Performed By: #### GLULS #### Point of Care testing ,Chloride [Moles/Vol]105 mmol/QKorhhx89-543Plc [facility] Physician GroupComment on above:Performed By: #### GLULS #### Point of Care testing ,CO2 [Moles/Vol]23.7 mmol/PIsxque43.0-31.0The [facility] Physician GroupComment on above:Performed By: #### GLULS #### Point of Care testing ,Creatinine [Mass/Vol]0.74 mg/dLNormal0.60-1.20ThFrank[facility] Physician [facility] Comment on above:Performed By: #### GLULS #### Point of Care testing ,Creatinine Clr Calc Byqjtijj30.88NoFormerly [facility] Physician GroupComment on above:Performed By: #### GLULS #### Point of Care testing ,GFR/1.73 sq M.predicted MDRD (S/P/Bld) [Vol rate/Area]mL/min/{1.73_m2}NormalRiver Point Behavioral Health Physician GroupComment on above:Performed By: #### GLULS #### Point of Care testing ,Globulin (S) [Mass/Vol]2.1 g/dLTallahassee Memorial HealthCare Physician GroupComment on above:Performed By: #### GLULS #### Point of Care testing ,Glucose [Mass/Vol]134 mg/rQYgaj07-384Jsm [facility] Physician GroupComment on above:Result Comment: Random Glucose Reference Range is dependent on time and content of last meal. Glucose of more than 200 mg/dL in a nonstressed, ambulatory subject supports the diagnosis of Diabetes Mellitus. ADA recommended reference rangePerformed By: #### GLULS #### Point of Care testing ,Potassium [Moles/Vol]4.3 mmol/LNormal3.5-5.1The [facility] Comment on above:Performed By: #### GLULS #### Point of Care testing ,Protein [Mass/Vol]5.5 g/dLLow6.4-8.9The [facility] Physician GroupComment on above:Performed By: #### GLULS #### Point of Care testing ,Sodium [Moles/Vol]136 mmol/LSignificant change ckuk079-922Vga [facility] Physician GroupComment on above:Performed By: #### GLULS #### Point of Care testing ,Urea nitrogen [Mass/Vol]21 mg/dLNormal7-e [facility] Physician GroupComment on above:Performed By: #### GLULS #### Point of Care testing ,Glucose Poct Glucometerson 97-34-5817Fakamea [Mass/Vol]132 mg/dLNoFormerly [facility] Physician [facility] CenterComment on above:Result Comment: Random Glucose Reference Range is dependent on time and content of last meal. Glucose of more than 200 mg/dL in a nonstressed, ambulatory subject supports the diagnosis of Diabetes Mellitus. PERFORMED BY: [address] [place] [address] PATHOLOGIST RAILS DEVELOPER MANDY ACUÑA M.D.Performed By: #### GLULS #### Point of Care testing ,Glucose [Mass/Vol]123 mg/dLTallahassee Memorial HealthCare Physician GroupComment on above: Result Comment: Random Glucose Reference Range is dependent on time and content of last meal. Glucose of more than 200 mg/dL in a nonstressed, ambulatory subject supports the diagnosis of Diabetes Mellitus. PERFORMED BY: [facility] [address] [place] [address] PATHOLOGIST RAILS DEVELOPER MANDY ACUÑA M.D.Performed By: #### ABG #### Point of Care testing ,Magnesiumon 53-33-6335Gniluvbun [Mass/Vol]2.3 mg/dLNormal1.9-2.7The [facility] Physician GroupComment on above:Result Comment: PERFORMED BY: [place] [address] [place] [address] PATHOLOGIST RAILS DEVELOPER MANDY ACUÑA M.D.Performed By: #### GLULS #### Point of Care testing ,Magnesium [Mass/volume] in Serum or PlasmaOrdered By: Daniel Garza on 12-11-2024 Magnesium [Mass/Vol]Magnesium [Mass/volume] in Serum or Plasma1.9-2.7FProMedica Toledo HospitalNo Panel InformationOrdered By: Daniel Garza on 12-11-2024 Arterial Blood Base Excess-3.0 mmol/L-3.0-3.0[facility] Arterial Blood Oxygen Content6.9 mmol/L6.6-9.7FProMedica Toledo Hospital Arterial Blood Oxygen Ssphzhhuqf38.1 %95.0-100.0[facility] – JacksonArterial Blood Partial Pressure CO240.3 mm[Hg]35.0-45.0[facility] – JacksonArterial Blood Partial Pressure O2126.0 mm[Hg]Critically high 80.0-100.0[facility] – JacksonArterial Blood pH7.367.35-7.45 [facility] – JacksonBlood Gas Critical ValueSee commentHolzer Medical Center – JacksonComment on above:Critical Value called on: 12/11/2024 at 04:26Blood Gas PEEP8 orV3YZjzdbajmqHolzer Medical Center – JacksonBlood Gas Sample Site Left radialHolzer Medical Center – JacksonBlood Gas Set Respiration Rate18 [facility] – JacksonBlood Gas Tidal Msjren359 mLHolzer Medical Center – JacksonBlood Gas Ventilator ModeAcHolzer Medical Center – JacksonFiO255 %[facility] – JacksonPhosphoruson 59-31-0292Jcjfwodwu [Mass/Vol] 2.6 mg/dLNormal2.5-4.5The [facility] Physician GroupComment on above:Performed By: #### GLULS #### Point of Care testing ,Triglyceride [Mass/volume] in Serum or PlasmaOrdered By: Soco Beasley on 48-95-4987Mryljqyikiso [Mass/Vol]Triglyceride [Mass/volume] in Serum or Plasma Nakz80-280QrbzoniqvHolzer Medical Center – JacksonComment on above:TRIG ATP III CLASSIFICATIONTRIG less than 150 mg/dL NormalTRIG 150-199 mg/dL Borderline highTRIG 200-500 mg/dL High TRIG greater than 500 mg/dL Very highStandard traceable to the Center for Disease Conrtrol and Prevention (CDC) test method. Triglycerideson 09-51-5739Stmpzkbmlior [Mass/Vol]158 mg/aRFlan95-434Lls [facility] Physician GroupComment on above:Result Comment: TRIG ATP III CLASSIFICATION TRIG less than 150 mg/dL Normal TRIG 150-199 mg/dL Borderline high TRIG 200-500 mg/dL High TRIG greater than 500 mg/dL Very high Standard traceable to the Center for Disease Conrtrol and Prevention (CDC) test method. PERFORMED BY: [place] [address] PATHOLOGIST RAILS DEVELOPER MANDY ACUÑA M.D.Performed By: #### TRIG #### [place] [address] USAX-ray reportOrdered By: Ryan Ugalde on 29-04-1743Agxce reportKINDRED [place] [address] XRay Report Signed Patient: Julian Montaño MR#: [id number] : 1955 Acct:[id number] Age/Sex: 69 / F ADM Date: 5 Loc: Room: [address] [place] [address] Type: ADM IN Attending Dr: Daniel Garza [...] Jr, DO 12/11/24831 Signed By: 12/11/24 0833 [facility] JacksonXR chest 1V portableon 51-17-2283XL chest 1V portableKINDRED HOSPITAL LIMA Main [place] [address] [place] [address] XRay Report Signed Patient: Julian Montaño MR#: [id number] 27 : 1955 Acct:[id number] Age/Sex: 69 / F ADM Date: 12/09/24 Loc: Room: [address] [place] [address] Type: ADM IN Attending Dr: Daniel Garza [...] Ugalde Jr, DO 12/11/24831 Signed By: 12/11/24 33[facility] Physician GroupAmphetamine Screen Ql (U)Ordered By: Soco Beasley on 69-78-9280Vibolqcfzvth Ql (U)Amphetamines screenNegative [facility] Medical CenterArterial Blood Gason 50-54-3432HOL Base Excess- 2.9 mmol/LNormal-3.0-3.0The [facility] Physician GroupComment on above:Performed By: #### ABG #### Point of Care testing ,ABG Frac Inspired O250 %NormalThe [facility] Physician GroupComment on above: Performed By: #### ABG #### Point of Care testing ,ABG Oxygen Content6.8 mmol/LNormal6.6-9.7The [facility] Physician GroupComment on above:Performed By: #### ABG #### Point of Care testing ,ABG Oxygen Fhruoozaiq75.3 %Mgzfqs25.0-100.0The [facility] Physician GroupComment on above:Performed By: #### ABG #### Point of Care testing ,ABG DUZ298.7 mm[Hg]Znuwfx78.0-45.0The [facility] Physician GroupComment on above:Performed By: #### ABG #### Point of Care testing ,ABG PEEP5 axZ33MakkrwCko [facility] Physician GroupComment on above:Performed By: #### ABG #### Point of Care testing ,ABG PH7.34Low7.35-7.45The [facility] Physician [facility] CenterComment on above:Performed By: #### ABG #### Point of Care testing ,ABG PO299.2 mm[Hg]Lpideg49.0-100.0The [facility] Physician GroupComment on above:Performed By: #### ABG #### Point of Care testing ,ABG TV450 mLNormalThe [facility] Physician GroupComment on above:Performed By: #### ABG #### Point of Care testing ,CO2 [Moles/Vol]24.0 mmol/LQwmmbv17.0-27.0The [facility] Physician GroupComment on above:Performed By: #### ABG #### Point of Care testing ,HCO3 (Bld) [Moles/Vol]22.7 mmol/LLow23.0-29.0The [facility] Physician Group Comment on above:Performed By: #### ABG #### Point of Care testing ,Respiratory CriticalNormalThe [facility] Physician GroupComment on above:Result Comment: Critical Value called on: 12/10/2024 at 06:05 PERFORMED BY: [facility] [place] [address] PATHOLOGIST RAILS DEVELOPER MANDY ACUÑA M.D.Performed By: #### ABG #### Point of Care testing ,Set Respiratory Ccgt26OjgejcNlqFormerly [facility] Physician GroupComment on above: Performed By: #### ABG #### Point of Care testing ,VBG Draw SiteLeft RadialTallahassee Memorial HealthCare Physician GroupComment on above: Performed By: #### ABG #### Point of Care testing ,Ventilator ModeACTallahassee Memorial HealthCare Physician GroupComment on above:Performed By: #### ABG #### Point of Care testing ,ABG Base Excess-4.9 mmol/LLow-3.0-3.0The [facility] Physician GroupComment on above:Performed By: #### GLULS #### Point of Care testing ,ABG Frac Inspired O260 %NormalThe [facility] Physician GroupComment on above: Performed By: #### GLULS #### Point of Care testing ,ABG Oxygen Content6.8 mmol/LNormal6.6-9.7The [facility] Physician GroupComment on above:Performed By: #### GLULS #### Point of Care testing ,ABG Oxygen Odrkyottzj99.2 %Vqkbdi77.0-100.0The [facility] Physician GroupComment on above:Performed By: #### GLULS #### Point of Care testing ,ABG VZT279.5 mm[Hg]High35.0-45.0The [facility] Physician GroupComment on above: Performed By: #### GLULS #### Point of Care testing ,ABG PEEP5 frE05PqlgrgKjjTallahassee Memorial HealthCare Physician GroupComment on above:Performed By: #### GLULS #### Point of Care testing ,ABG PH7.28Low7.35-7.45The [facility] Physician GroupComment on above:Performed By: #### GLULS #### Point of Care testing ,ABG YW0849.9 mm[Hg]Off scale high80.0-100.0The [facility] Physician GroupComment on above:Performed By: #### GLULS #### Point of Care testing ,ABG TV500 mLNormalThe [facility] Physician GroupComment on above:Performed By: #### GLULS #### Point of Care testing ,CO2 [Moles/Vol]23.3 mmol/DTodque43.0-27.0The [facility] Physician GroupComment on above:Performed By: #### GLULS #### Point of Care testing ,HCO3 (Bld) [Moles/Vol]21.8 mmol/LLow23.0-29.0The [facility]ician Group Comment on above:Performed By: #### GLULS #### Point of Care testing ,Respiratory CriticalTallahassee Memorial HealthCare Physician GroupComment on above:Result Comment: Critical Value called on: 12/10/2024 at 00:12 PERFORMED BY: [facility] [place] [address] PATHOLOGIST RAILS DEVELOPER MANDY ACUÑA M.D.Performed By: #### GLULS #### Point of Care testing ,Set Respiratory Rgmf91CeydmoCieTallahassee Memorial HealthCare Physician GroupComment on above: Performed By: #### GLULS #### Point of Care testing ,VBG Draw SiteRight RadialTallahassee Memorial HealthCare Physician GroupComment on above: Performed By: #### GLULS #### Point of Care testing ,Ventilator ModeACTallahassee Memorial HealthCare Physician GroupComment on above:Performed By: #### GLULS #### Point of Care testing ,Barbiturates [Presence] in Urine by Screen methodOrdered By: Soco Beasley on 62-71-9951Ldggzgycougi Screen Ql (U)Barbiturates [Presence] in Urine by Screen methodNegUniversity Hospitals Geneva Medical CenterBenzodiazepines Screen Ql (U) Ordered By: Soco Beasley on 84-44-8904Kqynysosfzzqhou Ql (U)Benzodiazepines [Presence] in Urine by Screen methodHighNegUniversity Hospitals Geneva Medical CenterBenzoylecgonine [Presence] in Urine by Screen methodOrdered By: Soco Beasley on 99-94-6944Zhpjpvnspubjidn Screen Ql (U)Benzoylecgonine [Presence] in Urine by Screen methodNegativeHolzer Medical Center – JacksonCannabinoids [Presence] in Urine by Screen methodOrdered By: Soco Beasley on 12-10-2024 Cannabinoids Screen Ql (U)Cannabinoids [Presence] in Urine by Screen method NegativeHolzer Medical Center – JacksonComment on above:These are unconfirmed results and should not be used for legal purposes. Drug Cut-Off Concentration: AMPH 1000 ng/mL MICHAEL 200 ng/mL JAVAN 200 ng/mL COCM 300 ng/mL OP 300 ng/mL PCP 25 ng/mL THC 20 ng/mLComplete Blood Count Auto Diffon 61-22-9899Bwsegkjyj (Bld) [#/Vol]0.1 10*3/uLNormal0.0-0.2The [facility] Physician GroupComment on above: Result Comment: PERFORMED BY: [facility] [address] [place] [address] PATHOLOGIST RAILS DEVELOPER MANDY ACUÑA M.D.Performed By: #### ABG #### Point of Care testing ,Basophils/100 WBC (Bld)0.5 %Normal.The [facility] Physician GroupComment on above:Performed By: #### ABG #### Point of Care testing ,Eosinophils (Bld) [#/Vol]0.0 10*3/uLNormal0.0-0.45The [facility]ician Group Comment on above:Performed By: #### ABG #### Point of Care testing ,Eosinophils/100 WBC (Bld)0.0 %Normal.The [facility] Physician GroupComment on above:Performed By: #### ABG #### Point of Care testing ,Erythrocyte distribution width (RBC) [Ratio]15.5 %High11.9-15.3The [facility] Physician GroupComment on above:Performed By: #### ABG #### Point of Care testing ,Hematocrit (Bld) [Volume fraction]31.0 %Low34.0-46.4The [facility] Physician GroupComment on above:Performed By: #### ABG #### Point of Care testing ,Hemoglobin (Bld) [Mass/Vol]10.1 g/dLLow11.8-15.4The [facility]ician Group Comment on above:Performed By: #### ABG #### Point of Care testing ,Lymphocytes (Bld) [#/Vol]0.2 10*3/uLLow1.00-4.8The [facility]ician Group Comment on above:Performed By: #### ABG #### Point of Care testing ,Lymphocytes/100 WBC (Bld)1.2 %Normal.The [facility] Physician GroupComment on above:Performed By: #### ABG #### Point of Care testing ,MCH (RBC) [Entitic mass]28.4 ttHwwkne86.7-34.3The [facility] Physician Group Comment on above:Performed By: #### ABG #### Point of Care testing ,MCV (RBC) [Entitic vol]86.7 aXVmaokm76-056Bln [facility] Physician GroupComment on above:Performed By: #### ABG #### Point of Care testing ,Mean Corpuscular HGB Conc32.7 g/bIZibjtt42.0-35.0The [facility]ician Group Comment on above:Performed By: #### ABG #### Point of Care testing ,Monocytes (Bld) [#/Vol]0.5 10*3/uLNormal0.0-0.8[facility] Comment on above:Performed By: #### ABG #### Point of Care testing ,Monocytes/100 WBC (Bld)3.1 %Normal.[facility] Physician GroupComment on above:Performed By: #### ABG #### Point of Care testing ,Neutrophils (Bld) [#/Vol]14.4 10*3/uLHigh1.8-7.7[facility] Physician [facility] Comment on above:Performed By: #### ABG #### Point of Care testing ,Neutrophils/100 WBC (Bld)95.2 %Normal.[facility] Physician GroupComment on above:Performed By: #### ABG #### Point of Care testing ,NRBC%0.0 /100{WBC}Normal0-0.5[facility] Physician GroupComment on above: Performed By: #### ABG #### Point of Care testing ,Platelet mean volume (Bld) [Entitic vol]7.0 fLNormal6.3-10.7The [facility] Physician GroupComment on above:Performed By: #### ABG #### Point of Care testing ,Platelets (Bld) [#/Vol]236 10*3/qOIulbmw965-404Ijd [facility]ician [facility] Comment on above:Performed By: #### ABG #### Point of Care testing ,RBC (Bld) [#/Vol]3.57 10*6/uLLow3.60-5.00[facility] Physician GroupComment on above:Performed By: #### ABG #### Point of Care testing ,WBC (Bld) [#/Vol]15.2 10*3/uLHigh3.8-11.6[facility] Physician GroupComment on above:Performed By: #### ABG #### Point of Care testing ,Comprehensive Metabolic Panelon 80-59-3890Gbinrfp [Mass/Vol]3.4 g/dLLow3.5-5.7 [facility] Physician GroupComment on above:Performed By: #### ABG #### Point of Care testing ,Albumin/Globulin [Mass ratio]1.5 {ratio}NormalThe [facility] Comment on above:Performed By: #### ABG #### Point of Care testing ,ALP [Catalytic activity/Vol]69 U/QEvrfvn45-670Oue [facility] Comment on above:Performed By: #### ABG #### Point of Care testing ,ALT [Catalytic activity/Vol]71 U/LHigh7-52The [facility]ician GroupComment on above:Performed By: #### ABG #### Point of Care testing ,Anion gap [Moles/Vol]10.3 mmol/LNormal6.0-15.0[facility] Physician [facility] Comment on above:Performed By: #### ABG #### Point of Care testing ,AST [Catalytic activity/Vol]50 U/TTcyf47-00Duo [facility]ician GroupComment on above:Performed By: #### ABG #### Point of Care testing ,Bilirubin [Mass/Vol]0.4 mg/dLNormal0.3-1.0[facility] Physician GroupComment on above:Performed By: #### ABG #### Point of Care testing ,Calcium [Mass/Vol]7.0 mg/dLLow8.6-10.3[facility] Physician GroupComment on above:Performed By: #### ABG #### Point of Care testing ,Chloride [Moles/Vol]101 mmol/VRocngj29-661Wrl [facility] Physician GroupComment on above:Performed By: #### ABG #### Point of Care testing ,CO2 [Moles/Vol]22.0 mmol/QBwvrhh47.0-31.0[facility]ician GroupComment on above:Performed By: #### ABG #### Point of Care testing ,Creatinine [Mass/Vol]0.64 mg/dLNormal0.60-1.20[facility] Physician [facility] Comment on above:Performed By: #### ABG #### Point of Care testing ,Creatinine Clr Calc Dvvmudso50.14NoThe Surgical Hospital at SouthwoodsComment on above:Performed By: #### ABG #### Point of Care testing ,GFR/1.73 sq M.predicted MDRD (S/P/Bld) [Vol rate/Area]mL/min/{1.73_m2}NormalThe [facility] Physician GroupComment on above:Performed By: #### ABG #### Point of Care testing ,Globulin (S) [Mass/Vol]2.2 g/dLNoThe Surgical Hospital at SouthwoodsComment on above:Performed By: #### ABG #### Point of Care testing ,Glucose [Mass/Vol]151 mg/bQNctx28-049Lsm [facility]ician GroupComment on above:Result Comment: Random Glucose Reference Range is dependent on time and content of last meal. Glucose of more than 200 mg/dL in a nonstressed, ambulatory subject supports the diagnosis of Diabetes Mellitus. ADA recommended reference rangePerformed By: #### ABG #### Point of Care testing ,Potassium [Moles/Vol]3.3 mmol/LLow3.5-5.1[facility] Physician GroupComment on above:Performed By: #### ABG #### Point of Care testing ,Protein [Mass/Vol]5.6 g/dLLow6.4-8.9The [facility] Physician GroupComment on above:Performed By: #### ABG #### Point of Care testing ,Sodium [Moles/Vol]130 mmol/EKqr311-153Emr [facility] Physician GroupComment on above:Performed By: #### ABG #### Point of Care testing ,Urea nitrogen [Mass/Vol]14 mg/dLNormal7-25The [facility] Physician GroupComment on above:Performed By: #### ABG #### Point of Care testing ,Drug Screen,Urineon 84-64-6365Fdsdekyhqoh Screen,UrineNegativeNormalNegativeThe [facility] Physician GroupComment on above:Performed By: #### URDS #### [place] [address] USABarbiturate Screen,UrineNegativeNormalNegativeThe [facility] Physician GroupComment on above:Performed By: #### URDS #### [place] [address] USABenzodiazepines Screen,UrinePositiveHighNegativeThe [facility] Physician GroupComment on above:Performed By: #### URDS #### [place] [address] USACannabinoid Screen,UrineNegativeNormalNegativeThe [facility] Physician GroupComment on above:Result Comment: These are unconfirmed results and should not be used for legal purposes. Drug Cut-Off Concentration: AMPH 1000 ng/mL MICHAEL 200 ng/mL JAVAN 200 ng/mL COCM 300 ng/mL OP 300 ng/mL PCP 25 ng/mL THC 20 ng/mL PERFORMED BY: [place] [address] PATHOLOGIST RAILS DEVELOPER MANDY ACUÑA M.D.Performed By: #### URDS #### [facility] [address] [place] [address] USACocaine Screen,UrineNegativeNormalNegativeThe [facility] Physician GroupComment on above:Performed By: #### URDS #### [facility] [address] [place] [address] USAOpiate Screen,UrinePositiveHighNegativeThe [facility] Physician GroupComment on above:Performed By: #### URDS #### [facility] [address] [place] [address] USAPhencyclidine Screen,UrineNegativeNormalNegativeThe [facility] Physician GroupComment on above:Performed By: #### URDS #### [place] [address] USAECH echo transthoracicon 97-98-1141QYZ echo transthoracic [facility] Main [place] [address] [place] [address] Echocardiogram Signed Patient: Julian Montaño MR#: [id number] [birth year] : 1955 Acct:[id number] Age/Sex: 69 / F ADM Date: 12/09/24 Loc: Room: [address] [place] [address] Type: ADM IN Attending Dr: Daniel Garza [...] Signed By: Gildardo Pastor MD 12/10/24 1712NormalThe [facility] CenterGlucose Poct Glucometerson 88-55-0322Lqqkrzd [Mass/Vol]135 mg/dL NormalThe [facility] Physician GroupComment on above:Result Comment: Random Glucose Reference Range is dependent on time and content of last meal. Glucose of more than 200 mg/dL in a nonstressed, ambulatory subject supports the diagnosis of Diabetes Mellitus. PERFORMED BY: [place] [address] PATHOLOGIST RAILS DEVELOPER MANDY ACUÑA M.D.Performed By: #### GLULS #### Point of Care testing ,Magnesiumon 35-60-0330Ivpvkzvdr [Mass/Vol]1.7 mg/dLLow1.9-2.7The [facility] Physician GroupComment on above:Result Comment: PERFORMED BY: [place] [address] PATHOLOGIST RAILS DEVELOPER MANDY ACUÑA M.D.Performed By: #### URDS #### [place] [address] USAOpiates [Presence] in Urine by Screen methodOrdered By: Soco Beasley on 39-99-1912Emetxpz Screen Ql (U)Opiates [Presence] in Urine by Screen methodHighNegUniversity Hospitals Geneva Medical CenterPhencyclidine Screen Ql (U)Ordered By: Soco Beasley on 36-90-7328Mbcyzdiiajmox Ql (U)Phencyclidine [Presence] in Urine by Screen methodNegUniversity Hospitals Geneva Medical Center Troponin I High Sensitivityon 34-19-0414Lwjwjrbs I High Hxthmxoumqy5330Ran scale high0-15The [facility] Physician GroupComment on above:Result Comment: Critical Result : Called to and read back by: VIOLA KAY at: 12/10/2024 07:21:46 by:CELESTINA The Troponin units of report have been changed to meet the Chest Pain Accreditation requirement, element EC5.M1l2. Troponin units are changed from pg/ml to ng/L. Also, the decimal is removed and results are in whole numbers. PERFORMED BY: [place] [id number] PATHOLOGIST RAILS DEVELOPER MANDY ACUÑA M.D.Performed By: #### GLULS #### Point of Care testing ,Troponin I.cardiac [Mass/volume] in Serum or Plasma by Detection limit <= 0.01 ng/Ordered By: Soco Beasley on 60-16-0991Akwheods I.cardiac DL <= 0.01 ng/mL [Mass/Vol]Troponin I.cardiac [Mass/volume] in Serum or Plasma by Detection limit <= 0.01 ng/Critically high0-15[facility] – JacksonComment on above:Critical Result : Called to and read back by: VIOLA KAY at: 12/10/2024 07:21:46 by:CELESTINAThe Troponin units of report have been changed to meet the Chest Pain Accreditation requirement, element EC5.M1l2. Troponin units are changed from pg/ml to ng/L. Also, the decimal is removed and results are in whole numbers.X-ray reportOrdered By: Ryan Ugalde on 16-25-7126Zhacg report [facility] [place] [address] XRay Report Signed Patient: Julian Montaño MR#: [id number] : 1955 Acct:[id number] Age/Sex: 69 / F ADM Date: 5 Loc: Room: [address] [place] [address] Type: ADM IN Attending Dr: Soco Beasley MD Copies to: Soco Beasley MD~ Ordering Provider: Soco Beasley MD Date of Service: 12/10/24 XR/XR chest 1V portable: Intubated SINGLE VIEW CHEST CLINICAL HISTORY: Transfer from [place]. Following responsive. COMPARISON: Chest 12/09/2024 FINDINGS: Enteric [...] DO 12/10/24 0912 Signed By: 12/10/24 0913 [facility] Main [address] [address] XRay Report Signed Patient: Julian Montaño MR#: [id number] : 1955 Acct:[id number] Age/Sex: 69 / F ADM Date: 5 Loc: 4C Room: [address] [place] [address] Type: ADM IN Attending Dr: Soco Beasley [...] DO 12/10/24 0831 Signed By: 12/10/24 0833 [facility] JacksonX-ray reportOrdered By: Torsten Toledo on 54-00-4271Kcrsw [address] [address] XRay Report Signed Patient: Julian Montaño MR#: [id number] : 1955 Acct:[id number] Age/Sex: 69 / F ADM Date: 5 Loc: 4C Room: [address] [place] [address] Type: ADM IN Attending Dr: Soco Beasley [...] Torsten Toledo M.D.12/10/2024 8:31 AM Dictation Location: [place] [address] Transcribed By: [facility] 12/10/24830 Dictated By: Torsten Toledo MD 12/10/24 0829 Signed By: 12/10/24 0831 [facility] Work Phone: XR abdomen 1Von 29-31-7611IR abdomen 1V[facility] [place] [address] [place] [address] XRay Report Signed Patient: Julian Montaño MR#: [id number] [birth year] : 1955 Acct:[id number] Age/Sex: 69 / F ADM Date: 12/09/24 Loc: Room: [address] [place] [address] Type: ADM IN Attending Dr: Soco Beasley [...] Jr DO 12/10/24 0831 Signed By: 12/10/24 0833[facility] Physician GroupXR chest 1V portableon 44-01-9966WE chest 1V [facility] Main [place] [id number] XRay Report Signed Patient: Julian Montaño MR#: [id number] [birth year] : 1955 Acct:[id number] Age/Sex: 69 / F ADM Date: 12/09/24 Loc: Room: [address] [place] [address] Type: ADM IN Attending Dr: Soco Beasley MD Copies to: Soco Beasley MD Ordering Provider: Soco Beasley MD Date of Service: 12/10/24 XR/XR chest 1V portable: Intubated SINGLE VIEW CHEST CLINICAL HISTORY: Transfer from [place]. Following responsive. COMPARISON: Chest 12/09/2024 FINDINGS: Enteric [...] Jr, DO 12/10/24 0912 Signed By: 12/10/24 0913[facility] Physician GroupXR chest 1V [facility] Main [address] [address] XRay Report Signed Patient: Julian Montaño MR#: [id number] [birth year] : 1955 Acct:[id number] Age/Sex: 69 / F ADM Date: 12/09/24 Loc: Room: [address] [place] [address] Type: ADM IN Attending Dr: Soco Beasley [...] Torsten Toledo M.D.12/10/2024 8:31 AM Dictation Location: [place] [address] Transcribed By: [facility] 12/10/24 0831 Dictated By: Torsten Toledo MD 12/10/24 0829 Signed By: 12/10/24 0831[facility] Physician GroupAerobic Cultureon 12-09-2024 Aerobic CultureLight Normal Respiratory Chase 2 Days Gram Stain Result 3+ White Blood Cells Rare Epithelial Cells 4+ Gram Positive Cocci in Chains AND PAIRS PERFORMED BY: [address] [address] PATHOLOGIST RAILS DEVELOPER MANDY ACUÑA M.D.NormalThe [facility] Physician GroupComment on above: Performed By: #### GLULS #### Point of Care testing ,Aerobic cultureOrdered By: Soco Beasley on 91-59-3437Rawiahwx identified Aer cx Nom (Unsp spec)Aerobic cultureHolzer Medical Center – JacksonAnisocytosis LM Ql (Bld)Ordered By: Soco Beasley on 10-74-6309Kycayukcfiwn Ql (Bld)Anisocytosis [Presence] in Blood by Light microscopyHolzer Medical Center – JacksonArterial Blood Gason 56-58-7191XFU Base Excess-4.7 mmol/LLow-3.0-3.0The [facility] Physician GroupComment on above:Performed By: #### ABG #### Point of Care testing ,ABG Frac Inspired O240 %NormalThe [facility] Physician GroupComment on above: Performed By: #### ABG #### Point of Care testing ,ABG Oxygen Content6.5 mmol/LLow6.6-9.7The [facility] Physician GroupComment on above:Performed By: #### ABG #### Point of Care testing ,ABG Oxygen Jvywcifhnl70.5 %Low95.0-100.0The [facility] Physician GroupComment on above:Performed By: #### ABG #### Point of Care testing ,ABG PRC394.0 mm[Hg]Off scale high35.0-45.0The [facility] Physician GroupComment on above:Performed By: #### ABG #### Point of Care testing ,ABG PEEP5 elK75AauzosJvxPalmetto General Hospital Physician GroupComment on above:Performed By: #### ABG #### Point of Care testing ,ABG PH7.23Low7.35-7.45The [facility] Physician GroupComment on above:Performed By: #### ABG #### Point of Care testing ,ABG PO266.7 mm[Hg]Low80.0-100.0The [facility] Physician GroupComment on above: Performed By: #### ABG #### Point of Care testing ,ABG TV450 mLNormalThe [facility] Physician GroupComment on above:Performed By: #### ABG #### Point of Care testing ,CO2 [Moles/Vol]25.1 mmol/PPdkjmb25.0-27.0The [facility] Physician GroupComment on above:Performed By: #### ABG #### Point of Care testing ,HCO3 (Bld) [Moles/Vol]23.3 mmol/TZmxvsh74.0-29.0[facility] Comment on above:Performed By: #### ABG #### Point of Care testing ,Respiratory CriticalNormPalmetto General Hospital Physician GroupComment on above:Result Comment: Critical Value called on: 12/09/2024 at 21:27 PERFORMED BY: [address] [address] PATHOLOGIST RAILS DEVELOPER MANDY ACUÑA M.D.Performed By: #### ABG #### Point of Care testing ,Set Respiratory Vpgs65BzdsjqH[address] [place] [address] Physician GroupComment on above: Performed By: #### ABG #### Point of Care testing ,VBG Draw SiteLeft RadialTallahassee Memorial HealthCare Physician GroupComment on above: Performed By: #### ABG #### Point of Care testing ,Ventilator ModeACTallahassee Memorial HealthCare Physician GroupComment on above:Performed By: #### ABG #### Point of Care testing ,Band form neutrophils/100 WBC Manual cnt (Bld)Ordered By: Soco Beasley on 70-12-8259Xezv form neutrophils/100 WBC (Bld)Peripheral white blood cell differential % bands, microscopic examBluefield Regional Medical Center[address] Blood Cultureon 59-25-8193Lqmmymbb identified Cx Nom (Bld)NO GROWTH 5 DAYS PERFORMED BY: [address] [address] PATHOLOGIST RAILS DEVELOPER MANDY ACUÑA M.D.[facility] Physician GroupComment on above: Performed By: #### GLULS #### Point of Care testing ,Bacteria identified Cx Nom (Bld)NO GROWTH 5 DAYS PERFORMED BY: [address] [address] PATHOLOGIST RAILS DEVELOPER MANDY ACUÑA M.D.[facility] Physician GroupComment on above: Performed By: #### GLULS #### Point of Care testing ,[place] cells [Presence] in Blood by Light microscopyOrdered By: Soco Beasley on 73-51-2140Phzf cells LM Ql (Bld)[place] cells [Presence] in Blood by Light microscopyHolzer Medical Center – JacksonComprehensive Metabolic Panelon 42-82-4276Xfdrvis [Mass/Vol]3.6 g/dLNormal3.5-5.7The [facility] Comment on above:Performed By: #### ABG #### Point of Care testing ,Albumin/Globulin [Mass ratio]1.6 {ratio}NormalThe [facility] Comment on above:Performed By: #### ABG #### Point of Care testing ,ALP [Catalytic activity/Vol]78 U/VCpoicw62-406Svu [facility] Comment on above:Result Comment: PERFORMED BY: [facility] [place] [address] PATHOLOGIST RAILS DEVELOPER MANDY ACUÑA M.D.Performed By: #### ABG #### Point of Care testing ,ALT [Catalytic activity/Vol]82 U/LHigh7-52The [facility] Physician GroupComment on above:Performed By: #### ABG #### Point of Care testing ,Anion gap [Moles/Vol]8.6 mmol/LNormal6.0-15.0The [facility] Physician [facility] Comment on above:Performed By: #### ABG #### Point of Care testing ,AST [Catalytic activity/Vol]61 U/EAcbq57-84Vzl [facility] Physician GroupComment on above:Performed By: #### ABG #### Point of Care testing ,Bilirubin [Mass/Vol]0.4 mg/dLNormal0.3-1.0The [facility] Physician GroupComment on above:Performed By: #### ABG #### Point of Care testing ,Calcium [Mass/Vol]7.1 mg/dLLow8.6-10.3The [facility] Physician GroupComment on above:Performed By: #### ABG #### Point of Care testing ,Chloride [Moles/Vol]97 mmol/KMdo25-791Wwb [facility] Physician GroupComment on above:Performed By: #### ABG #### Point of Care testing ,CO2 [Moles/Vol]24.6 mmol/FEgdroj29.0-31.0The [facility] Physician GroupComment on above:Performed By: #### ABG #### Point of Care testing ,Creatinine [Mass/Vol]0.68 mg/dLNormal0.60-1.20The [facility] Physician [facility] Comment on above:Performed By: #### ABG #### Point of Care testing ,GFR/1.73 sq M.predicted MDRD (S/P/Bld) [Vol rate/Area]mL/min/{1.73_m2}NormalThe [facility] Physician GroupComment on above:Performed By: #### ABG #### Point of Care testing ,Globulin (S) [Mass/Vol]2.3 g/dLTallahassee Memorial HealthCare Physician [facility] CenterComment on above:Performed By: #### ABG #### Point of Care testing ,Glucose [Mass/Vol]186 mg/cHRwdx52-983Dji [facility] Physician GroupComment on above:Result Comment: Random Glucose Reference Range is dependent on time and content of last meal. Glucose of more than 200 mg/dL in a nonstressed, ambulatory subject supports the diagnosis of Diabetes Mellitus. ADA recommended reference rangePerformed By: #### ABG #### Point of Care testing ,Potassium [Moles/Vol]3.2 mmol/LLow3.5-5.1The [facility] Physician GroupComment on above:Performed By: #### ABG #### Point of Care testing ,Protein [Mass/Vol]5.9 g/dLLow6.4-8.9The [facility] Physician [facility] CenterComment on above:Performed By: #### ABG #### Point of Care testing ,Sodium [Moles/Vol]127 mmol/NAjt399-698Gho [facility] Physician GroupComment on above:Performed By: #### ABG #### Point of Care testing ,Urea nitrogen [Mass/Vol]16 mg/dLNormal7-25The [facility] Physician [facility] CenterComment on above:Performed By: #### ABG #### Point of Care testing ,Diff and CBCon 02-07-7736Fapqwymjvaxo Ql (Bld)SlightNoThe Surgical Hospital at SouthwoodsComment on above:Performed By: #### ABG #### Point of Care testing ,Band form neutrophils/100 WBC (Bld)27 %High0-5The [facility] Comment on above:Performed By: #### ABG #### Point of Care testing ,Crenated RBCSlightTallahassee Memorial HealthCare Physician GroupComment on above:Performed By: #### ABG #### Point of Care testing ,Erythrocyte distribution width (RBC) [Ratio]15.4 %High11.9-15.3The [facility] Physician GroupComment on above:Performed By: #### ABG #### Point of Care testing ,Hematocrit (Bld) [Volume fraction]33.0 %Low34.0-46.4The [facility] Physician GroupComment on above:Performed By: #### ABG #### Point of Care testing ,Hemoglobin (Bld) [Mass/Vol]10.7 g/dLLow11.8-15.4ThFranklin County Medical Center Physician [facility] Comment on above:Performed By: #### ABG #### Point of Care testing ,Lymphocytes/100 WBC (Bld)0 %Cso85-70Nck [facility] Physician GroupComment on above:Performed By: #### ABG #### Point of Care testing ,MCH (RBC) [Entitic mass]28.1 yrBbyrnb24.7-34.3The [facility] Physician [facility] Comment on above:Performed By: #### ABG #### Point of Care testing ,MCV (RBC) [Entitic vol]87.0 rMHjahsq00-585Nuc [place] Physician GroupComment on above:Performed By: #### ABG #### Point of Care testing ,Mean Corpuscular HGB Conc32.3 g/wXXawtvd24.0-35.0The [facility] Physician [facility] Comment on above:Performed By: #### ABG #### Point of Care testing ,MicrocytosisSlightNoFormerly [facility] Physician GroupComment on above:Performed By: #### ABG #### Point of Care testing ,Monocytes/100 WBC (Bld)2 %Normal2-11[facility] Physician GroupComment on above:Performed By: #### ABG #### Point of Care testing ,Platelet EstimateNormalNormalTallahassee [facility] HealthCare Physician GroupComment on above:Performed By: #### ABG #### Point of Care testing ,Platelet mean volume (Bld) [Entitic vol]6.9 fLNormal6.3-10.7The [facility] Physician GroupComment on above:Result Comment: PERFORMED BY: [place] [address] PATHOLOGIST RAILS DEVELOPER MANDY ACUÑA M.D.Performed By: #### ABG #### Point of Care testing ,Platelet MorphologyNormalNormHCA [facility] Physician GroupComment on above:Result Comment: PERFORMED BY: [place] [id number] PATHOLOGIST RAILS DEVELOPER MANDY ACUÑA M.D.Performed By: #### ABG #### Point of Care testing ,Platelets (Bld) [#/Vol]236 10*3/zHBlbpcc206-535Rog [facility] Physician [facility] Comment on above:Performed By: #### ABG #### Point of Care testing ,PoikilocytosisSAngel Medical Center Physician GroupComment on above: Performed By: #### ABG #### Point of Care testing ,PolychromasiaSAngel Medical Center Physician GroupComment on above: Performed By: #### ABG #### Point of Care testing ,RBC (Bld) [#/Vol]3.80 10*6/uLNormal3.60-5.00The [facility] Physician [facility] Comment on above:Performed By: #### ABG #### Point of Care testing ,Segmented neutrophils/100 WBC (Bld)71 %Vdam26-82Ufg [facility] Physician [facility] Comment on above:Performed By: #### ABG #### Point of Care testing ,WBC (Bld) [#/Vol]15.9 10*3/uLHigh3.8-11.6The [facility] Physician GroupComment on above:Performed By: #### ABG #### Point of Care testing ,ECG 12 lead ECGon 98-23-2489ICU 12 lead ECGKINDRED [facility] Main [place] [id number] Electrocardiograph Report Signed Patient: Julian Montaño MR#: [id number] [birth year] : 1955 Acct:[id number] Age/Sex: 69 / F ADM Date: 12/09/24 Loc: Room: [address] [place] [address] Type: ADM IN Attending Dr: Daniel Garza [...] block Abnormal ECG Confirmed by Krissy Cortez ([id number]) on 12/12/2024 12:01:02 AM Referred By: Electronically Signed By: Krissy Cortez Transcribed By: MUS Signed By Krissy Cortez MD [address] [place] [address] Physician GroupErythrocyte morphology finding [Identifier] in BloodOrdered By: Soco Beasley on 73-24-9455PCO morphology finding Nom (Bld)RBC morphologyHolzer Medical Center – JacksonGram Stainon 98-04-6650Dhiffzoehqv observation Gram stain Nom (Unsp spec)Gram Stain Result 3+ White Blood Cells Rare Epithelial Cells 4+ Gram Positive Cocci in Chains AND PAIRS PERFORMED BY: [place] [address] PATHOLOGIST RAILS DEVELOPER MANDY CalvoThe [facility] Physician GroupComment on above: Performed By: #### GLULS #### Point of Care testing ,Gram stain microscopyOrdered By: Soco Beasley on 08-39-0412Vcouhudbbfh observation Gram stain Nom (Unsp spec)Gram stain microscopyHolzer Medical Center – JacksonLaboratory - Microbiology and Antimicrobial susceptibilityOrdered By: Soco Beasley on 02-57-9502Sgoexsan identified Cx Nom (Bld)NO GROWTH 5 DAYS [facility] – JacksonBacteria identified Cx Nom (Bld)NO GROWTH 5 DAYSHolzer Medical Center – JacksonLactate [Moles/volume] in Serum or Plasma Ordered By: Soco Beasley on 96-69-9056Kxzzdia [Moles/Vol]Lactate [Moles/volume] in Serum or Plasma0.5-1.9Hol[facility] Medical Center – JacksonComment on above: Lactic Acid reference range has been updated to 0.5 1.9 mmol/L and the critical range of 2.0 or greater.Lactic Acidon 77-65-7459Ukmgnkm [Moles/Vol]1.4 mmol/L Normal0.5-1.9The [facility] Physician GroupComment on above:Result Comment: Lactic Acid reference range has been updated to 0.5 ? 1.9 mmol/L and the critical range of 2.0 or greater. PERFORMED BY: [address] [place] [address] PATHOLOGIST RAILS DEVELOPER MANDY ACUÑA M.D.Performed By: #### GLULS #### Point of Care testing ,Lactate [Moles/Vol]1.3 mmol/LNormal0.5-1.9The [facility] Physician [facility] CenterComment on above:Result Comment: Lactic Acid reference range has been updated to 0.5 ? 1.9 mmol/L and the critical range of 2.0 or greater. PERFORMED BY: [facility] [address] [facility]PITALRiaL[place] [address] PATHOLOGIST RAILS DEVELOPER MANDY ACUÑA M.D.Performed By: #### GLULS #### Point of Care testing ,Lymphocytes/100 WBC Manual cnt (Bld)Ordered By: Soco Beasley on 12-09-2024 Lymphocytes/100 WBC (Bld)Lymphocytes/100 leukocytes in Blood by Manual countLow 18-42Holzer Medical Center – JacksonMicrocytes LM Ql (Bld)Ordered By: Soco Beasley on 04-66-0063Kuetpotgrb Ql (Bld)Microcytes [Presence] in Blood by Light microscopyHolzer Medical Center – JacksonMonocytes/100 WBC Manual cnt (Bld) Ordered By: Soco Beasley on 09-31-1615Cpntkpiej/100 WBC (Bld)Monocytes/100 leukocytes in Blood by Manual count2-11Holzer Medical Center – JacksonPlatelet adequacy [Presence] in Blood by Light microscopyOrdered By: Soco Beasley on 73-51-9296Etdjdyvoh LM Ql (Bld)Platelet adequacy [Presence] in Blood by Light microscopyNoTriHealth Bethesda North HospitalPlatelet morphology finding [Identifier] in BloodOrdered By: Soco Beasley on 54-98-3569Bzgbffjt morphology finding Nom (Bld)Platelet morphology finding [Identifier] in BloodNormal [facility] – JacksonPoikilocytosis [Presence] in Blood by Light microscopyOrdered By: Soco Beasley on 15-76-6888Zoahswnolmmvog LM Ql (Bld) Poikilocytosis [Presence] in Blood by Light microscopyHolzer Medical Center – JacksonPolychromasia [Presence] in Blood by Light microscopyOrdered By: Soco Beasley on 44-59-6547Fehemdbiwjatx LM Ql (Bld)Polychromasia [Presence] in Blood by Light microscopyTrumbull Regional Medical Centeregmented neutrophils/100 WBC Manual cnt (Bld)Ordered By: Soco Beasley on 16-59-0605Djpwearxx neutrophils/100 WBC (Bld)Manual blood segmented neutrophils/100 azvnqfdlycAmde76-76FscrxmowaHolzer Medical Center – JacksonTriglycerideson 84-74-5891Daawkymuajta [Mass/Vol]63 mg/dL Woczgg91-763Niq [facility] Physician GroupComment on above:Result Comment: TRIG ATP III CLASSIFICATION TRIG less than 150 mg/dL Normal TRIG 150-199 mg/dL Borderline high TRIG 200-500 mg/dL High TRIG greater than 500 mg/dL Very high Standard traceable to the Center for Disease Conrtrol and Prevention (CDC) test method. PERFORMED BY: [address] [place] [address] PATHOLOGIST RAILS DEVELOPER MANDY ACUÑA M.D.Performed By: #### GLULS #### Point of Care testing ,Troponin I High Sensitivityon 35-99-9364Pixdsetg I High Dbwsvlrjnlr6285Des scale high0-15The [facility] Physician GroupComment on above:Result Comment: Critical Result : Called to and read back by: VIOLA KAY at: 12/09/2024 23:07:02 by:GENA The Troponin units of report have been changed to meet the Chest Pain Accreditation requirement, element EC5.M1l2. Troponin units are changed from pg/ml to ng/L. Also, the decimal is removed and results are in whole numbers. PERFORMED BY: [facility] [place] [address] PATHOLOGIST RAILS DEVELOPER MANDY ACUÑA M.D.Performed By: #### ABG #### Point of Care testing ,HbA1c (Bld) [Mass fraction]on 69-77-5306Haqksphvsqmbwq and review of laboratory resultsNormalAtrium Health Union WestLaboratory - Hematology and Cell countson 99-29-2003SwE7q (Bld) [Mass fraction]6.1 %[facility] TOMOSYNTHESIS SCREENING BIon 39-12-1057[address] [address] Mammography Report Signed Patient: JULIAN MONTAÑO MR#: [id number] : 1955 Acct:[id number] Age/Sex: 68 / F ADM Date: 01/16/24 Loc: MAMMO Attending Dr: Shaikh Gonzalo Hooker Ordering Physician: Shaikh Morro Sánchez Results: Date of Service: 01/16/24 Follow Up: Procedure(s): MM tomosynthesis screening BI Accession Number(s): [id number] cc: Shaikh Morro Sánchez Patient Name: JULIAN MONTAÑO MR#: [id number] : 1955 Exam Date: 01/16/2024 Ordering Doctor: [...] uterine cancer at age 53. LOCATION: [facility] BREAST COMPOSITION: Almost entirely fatty. FINDINGS: [...] M.D. Signed By: 01/16/24910 DD/ 9 TD/TT: Scroll Saw Operator:TBHRadiology, Radiologist, - 01/16/2024 [place] [address] Mammography Report Signed Patient: JULIAN MONTAÑO MR#: [id number] : 1955 Acct:[id number] Age/Sex: 68 / F ADM Date: 01/16/24 Loc: MAMMO Attending Dr: Shaikh Gonzalo Hooker Ordering Physician: Shaikh Morro Sánchez Results: Date of Service: 01/16/24 Follow Up: Procedure(s): MM tomosynthesis screening BI Accession Number(s): [id number] cc: Shaikh Morro Sánchez Patient Name: JULIAN MONTAÑO MR#: [id number] : 1955 Exam Date: 01/16/2024 Ordering Doctor: [...] uterine cancer at age 53. LOCATION: [facility] BREAST COMPOSITION: Almost entirely fatty. FINDINGS: [...] M.D. Signed By: 01/16/24910 DD/ 9 TD/TT: Scroll Saw Operator: [facility]' HospitalRadiology Study observation (narrative)[facility] TOMOSYNTHESIS SCREENING BIOrdered By: Radiologist Radiology on 64-08-7847X[employer] Work Phone: rt PULMONARY FUNCTION TESTon 65-39[place] [address] Respiratory Report Signed Patient: JULIAN MONTAÑO MR#: [id number] : 1955 Acct:[id number] Age/Sex: 68 / F ADM Date: 12/12/23 Loc: CARD Attending Dr: Shaikh Gonzalo Hooker Ordering Physician: Shaikh Morro Sánchez Date of Service: 12/12/23 Procedure(s): RT pulmonary function test Accession Number(s): [id number] cc: [facility] Test Date: 2023-12-12 Pat Name: JULIAN MONTAÑO Department: Room: - Gender: Female Inspector Metal Can: Zaina Albarado RRT : 1955 Requested By: 1575 Order Number: [id number] Yani MD: [place] Interpretive Statements Pulmonary [...] D.O. Signed By: 12/21/2380112/21/23801 DD/ 9 TD/TT: Scroll Saw Operator:TBHRadiology, Radiologist, - 12/21/2023 [place] [address] Respiratory Report Signed Patient: JULIAN MONTAÑO MR#: [id number] : 1955 Acct:[id number] Age/Sex: 68 / F ADM Date: 12/12/23 Loc: CARD Attending Dr: Shaikh Gonzalo Hooker Ordering Physician: Shaikh Morro Sánchez Date of Service: 12/12/23 Procedure(s): RT pulmonary function test Accession Number(s): [id number] cc: [facility] Test Date: 2023-12-12 Pat Name: JULIAN MONTAÑO Department: Room: - Gender: Female Inspector Metal Can: Zaina Albarado RRT : 1955 Requested By: 1575 Order Number: [id number] Reading MD: [place] Interpretive Statements Pulmonary [...] D.O. Signed By: 12/21/2380112/21/23801 DD/ 0910 TD/TT: Scroll Saw Operator: SONI Saldana PULMONARY FUNCTION TESTOrdered By: Radiologist Radiology on 44-76-3439TGCD [employer] Work Phone: Neurology Forms- Texton 90-33-4219Wvfrtbqgc Forms- [id number]#1.00TIFFWright-Patterson Medical CenterConsent for Treatmenton 24-81-9667Jkaamfm for Treatment [id number]#1.00TIFSelect Medical Specialty Hospital - Columbus SouthRT PULMONARY FUNCTION TESTon 40-58-2403Sugdsodlk Study observation (narrative)[facility]' HospitalPhysician Orderon 95-72-0459Wyyhhtgmc Order [id number]#1.00TIFSelect Medical Specialty Hospital - Columbus SouthMRI Brain w/ + w/o Contraston 15-80-6764JVH Brain w/ + w/o ContrastExam Date/Time: 11/30/2023 [...] Technical Comments Vueway Contrast amount in ml's: 6NormalOhiohealth Doctors HospitalMRI Spine Cervical w/o Contraston 25-52-8847WKX Spine Cervical w/o ContrastExam Date/Time: 11/30/2023 17:25 [...] Transcribed by: SANA Technologist: CORDELIA Technical Comments NoneNormalOhiohealth Doctors HospitalBUNon 59-64-8748Eofe nitrogen [Mass/Vol]17 mg/dLNormal5-Ohiohealth Doctors HospitalComment on above:Performed By: #### [id number], [id number], [id number] #### [facility] [address] [place] [address]Hahvejp for Treatmenton 33-02-0156Wckltur for Treatment [id number]#1.00TIFFNoBethesda North HospitalCreatinineon 84-67-0619Ypdcckbgym [Mass/Vol]0.8 mg/dLNormal0.5-1.3Fisher Mercy Medical CenterComment on above:Performed By: #### [id number], 6638974, [id number] #### [facility] [address] [place], [place] [address]REZ - MRI Screening Formon 17-02-6178ZWS - MRI Screening Form [id number]#1.00TIFFNoBethesda North HospitaleGFRon 87-26-6288jTJM21 mL/min/1.73 x7Lhriuf>=59Ohiohealth Doctors HospitalComment on above:Order Comment: Order added by Discern Expert.Performed By: #### [id number], [id number], [id number] #### [facility] [address] [place], [place] [address]Tgrphqimu Orderon 97-66-1294Qddokdhxd Order [id number]#1.00TIFSelect Medical Specialty Hospital - Columbus SouthCBC AUTO DIFFon 45-33-1554PWZY #0.1 103/ulNormal0.0-0.1M[facility] Osteopathic ClinicComment on above:Performed By: #### CBC #### [facility] [address] [address] [address] Stan AcevesBasophils/100 WBC (Bld)0.7 %Normal0.2-2.0[facility] Comment on above:Performed By: #### CBC #### [facility] [address] [address] [address] Stan Anderson #0.1 103/ulNormal0.0-0.7The [facility] HospitalComment on above: Performed By: #### CBC #### [facility] [address] [address] [address] Stan Buenoosinophils/100 WBC (Bld)1.0 %Normal0.9-7.0[facility] Comment on above:Performed By: #### CBC #### [facility] [address] [place] [address] Dr. Stan Buenorythrocyte distribution width (RBC) [Ratio]16.8 %Critically high 11.0-15.0[facility] Osteopathic ClinicComment on above:Performed By: #### CBC #### [facility] [address] [place] [address] Dr. Stan AcevesHematocrit (Bld) [Volume fraction]33.7 %Critically low36.0-48.0 The [facility] HospitalComment on above:Performed By: #### CBC #### [facility] [address] [place] [address] Dr. Stan AcevesHemoglobin (Bld) [Mass/Vol]10.6 g/dLCritically low12.0-16.0The [facility] HospitalComment on above:Performed By: #### CBC #### [facility] [address] [place] [address] Dr. Stan Jewell #0.03 10e3/ulNormal0.00-0.03The [facility] HospitalComment on above:Performed By: #### CBC #### [facility] [address] [place] [address] Dr. Stan Jewell %0.3 %Normal0.0-0.5The [facility] HospitalComment on above: Performed By: #### CBC #### [facility] [address] [place] [address] Dr. Stan BarrH #0.9 103/ulCritically low1.2-3.8[facility] Comment on above:Performed By: #### CBC #### [facility] [address] [place] [address] Dr. Stan Jomphocytes/100 WBC (Bld)9.9 %Critically low20.5-60.0The [facility] HospitalComment on above:Performed By: #### CBC #### [facility] [address] [place] [address] Dr. Stan Ramsey DIFF REQNONormalThe [facility] HospitalComment on above: Performed By: #### CBC #### [facility] [address] [place] [address] Dr. Stan Garcia (RBC) [Entitic mass]25.7 pgCritically low26.7-34.0The [facility] HospitalComment on above:Performed By: #### CBC #### [facility] [address] [place] [address] Dr. Stan Garcia (RBC) [Mass/Vol]31.5 g/vMIisuae71.9-35.2The [facility] HospitalComment on above:Performed By: #### CBC #### [facility] [address] [place] [address] Dr. Stan Garcia (RBC) [Entitic vol]81.6 hUSqduuo74.0-99.0The [facility] HospitalComment on above:Performed By: #### CBC #### [facility] [address] [place] [address] Dr. Stan Izquierdo #0.7 103/ulNormal0.3-0.8The [facility] HospitalComment on above:Performed By: #### CBC #### [facility] [address] [place] [address] Dr. Stan Elkinsocytes/100 WBC (Bld)7.3 %Normal1.7-12.0[facility] Comment on above:Performed By: #### CBC #### [facility] [address] [place] [address] Dr. Stan Borden #7.4 103/ulCritically high1.4-6.5[facility] Comment on above:Performed By: #### CBC #### [facility] [address] [place] [address] Dr. Stan Gilliamutrophils/100 WBC (Bld)80.8 %Critically high43.0-75.0The [facility] HospitalComment on above:Performed By: #### CBC #### [facility] [address] [place] [address] Dr. Stan AcevesPlatelet mean volume (Bld) [Entitic vol]8.2 fLCritically low 9.5-13.5The [facility] HospitalComschoolcraft memorial hospital on above:Performed By: #### CBC #### [facility] [address] [place] [address] Dr. Stan AcevesPLT396 103/kuTswdub358-878Efw [facility] HospitalComschoolcraft memorial hospital on above: Performed By: #### CBC #### [facility] [address] [place] [address] Dr. Stan AcevesRBC4.13 106/ulCritically low4.20-5.40The [facility] on above:Performed By: #### CBC #### [facility] [address] [place] [address] Dr. Stan AcevesWBC9.2 103/ulNormal4.0-11.0The [facility] on above: Performed By: #### CBC #### [facility] [address] [place] [address] Dr. Stan AcevesGLYCOHEMOGLOBIN A1Con 68-40-4822UPR RECOMMENDATIONSEE BELOWNormOur Lady of Mer[facility] Hospital - AndersonComschoolcraft memorial hospital on above:Result Comment: ADA RECOMMENDED LIMIT 4.0 - 6.0 ADA THERAPEUTIC TARGET < 7.0 ACTION SUGGESTED > 7.0Performed By: #### A1C #### [facility] [address] [place] [address] Dr. Stan AcevesGlucose [Mass/Vol]126 mg/dLNormalThMercy Health Fairfield Hospital on above:Performed By: #### A1C #### [facility] [address] [place] [address] Dr. Stan AcevesHbA1c (Bld) [Mass fraction]6.0 %Normal4.5-6.2The [facility] on above:Performed By: #### A1C #### [facility] [address] [place] [address] Dr. Stan Smith 13-35-3952Gdzs [Mass/Vol]36.0 ug/dLCritically low 50.0-170.0The Ruth HospitalComment on above:Performed By: #### IRON #### [facility] [address] [address] [address] Stan Toribio, RAND URon 42-86-4378bXOL<1.3Normal<=30.0The [facility] HospitalComment on above:Performed By: #### MALBR #### [facility] [address] [address] [address] Stan Brown 14(COMP METB)on 95-06-4601Qfnuacm [Mass/Vol]3.5 g/dLNormal 3.4-5.0The [facility] HospitalComment on above:Performed By: #### T4, CMP, TSH #### [facility] [address] [place] [address] Dr. Stan AcevesAlbumin/Globulin [Mass ratio]1.0 {ratio}NormalThe [facility] HospitalComment on above:Performed By: #### T4, CMP, TSH #### [facility] [address] [place] [address] Dr. Stan Skaggs [Catalytic activity/Vol]105 U/RTpprag13-146Yil [facility] Medical Centerment on above:Performed By: #### T4, CMP, TSH #### [facility] [address] [place] [address] Dr. Stan Pastrana [Catalytic activity/Vol]20 U/WNtzdhr42-79Iob [facility] Medical Centerment on above:Performed By: #### T4, CMP, TSH #### [facility] [address] [place] [address] Dr. Stan Hernandez gap [Moles/Vol]12.1 mmol/LNormalThe [facility] on above:Performed By: #### T4, CMP, TSH #### [facility] [address] [place] [address] Dr. Stan Denise [Catalytic activity/Vol]14 U/LCritically isp32-91Cde [facility] HospitalComment on above:Performed By: #### T4, CMP, TSH #### [facility] [address] [place] [address] Dr. Stan AcevesBilirubin [Mass/Vol]0.3 mg/dLNormal0.2-1.0[facility] Comment on above:Performed By: #### T4, CMP, TSH #### [facility] [address] [place] [address] Dr. Stan AcevesCalcium [Mass/Vol]9.1 mg/dLNormal8.5-10.1[facility] Comment on above:Performed By: #### T4, CMP, TSH #### [facility] [address] [address] [address] Stan AcevesChloride [Moles/Vol]103 mmol/IFfrkjw00-915Fyv [facility] Comment on above:Performed By: #### T4, CMP, TSH #### [facility] [address] [place] [address] Dr. Stan AcevesCO2 [Moles/Vol]26.8 mmol/JIodsdd08.0-32.0[facility] Comment on above:Performed By: #### T4, CMP, TSH #### [facility] [address] [place] [address] Dr. Stan AcevesCreatinine [Mass/Vol]0.84 mg/dLNormal0.55-1.02The [facility] HospitalComment on above:Performed By: #### T4, CMP, TSH #### [facility] [address] [place] [address] Dr. Stan BuenoGFR-AF AUSTRALIAN>60Normal>=60The [facility] HospitalComment on above:Performed By: #### T4, CMP, TSH #### [facility] [address] [place] [address] Dr. Stan BuenoGFR-NON AF AUSTRALIAN>60Normal>=60The [facility] HospitalComment on above:Performed By: #### T4, CMP, TSH #### [facility] [address] [place] [address] Dr. Stan AcevesGlobulin (S) [Mass/Vol]3.6 g/dLNormalThe [facility] HospitalComment on above:Performed By: #### T4, CMP, TSH #### [facility] [address] [address] [address] Stan AcevesGlucose [Mass/Vol]84 mg/qICstpxm81-854TdvMarietta Osteopathic Clinic Comment on above:Performed By: #### T4, CMP, TSH #### [facility] [address] [place] [address] Dr. Stan AcevesPotassium [Moles/Vol]3.9 mmol/LNormal3.5-5.1[facility] Comment on above:Performed By: #### T4, CMP, TSH #### [facility] [address] [place] [address] Dr. Stan AcevesProtein [Mass/Vol]7.1 g/dLNormal6.4-8.2[facility] Comment on above:Performed By: #### T4, CMP, TSH #### [facility] [address] [place] [address] Dr. Stan AcevesSodium [Moles/Vol]138 mmol/DAcafnh236-502Bdi [facility] Comment on above:Performed By: #### T4, CMP, TSH #### [facility] [address] [place] [address] Dr. Stan AcevesUrea nitrogen [Mass/Vol]12.0 mg/dLNormal7.0-18.0[facility] ClinicComment on above:Performed By: #### T4, CMP, TSH #### [facility] [address] [place] [address] Dr. Stan Golden nitrogen/Creatinine [Mass ratio]14.3 mg/mgNormalThe [facility] HospitalComment on above:Performed By: #### T4, CMP, TSH #### [facility] [address] [place] [address] Dr. Stan Shah4on 32-55-4419C6 [Mass/Vol]8.70 ug/dLNormal4.80-13.90The [facility] HospitalComment on above:Performed By: #### T4, CMP, TSH #### [facility] [address] [place] [address] Dr. Stan Aden 12-31-5701EAY6.209 uIU/mLNormal0.358-3.740The [facility] Medical Centerment on above:Performed By: #### T4, CMP, TSH #### [facility] [address] [address] [address] Stan Menjivar BRAIN WO W CONon 05-25-2902BTO BRAIN WO W CONEXAMINATION: MRI BRAIN WO [...] Electronically authenticated by: PATRICK PIERRE Date: 2022-04-27 10:[address] [place], [place] [address]CREATININEon 13-07-8420Utbaunvzki [Mass/Vol]0.91 mg/dLNormal 0.55-1.02The [facility] HospitalComment on above:Performed By: #### CREA #### [facility] [address] [address] [address] Pierce ChangEGFR-AF AUSTRALIAN>60Normal>=60The [facility] HospitalComment on above:Performed By: #### CREA #### [facility] [address] [place], [place] [address] Dr. Pierce ChangEGFR-NON AF AUSTRALIAN>60Normal>=60The [facility] HospitalComment on above:Performed By: #### CREA #### [facility] [address] [place], [place] [address] Dr. 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 Right acoustic neuroma (225.1) [...] MOUTH EVERY week --take 30 MINUTES beforeBREAKFAST;Therapy: 60Tdf0360 to Recorded Rx By: Zion; Dispense: 84 [...] TAKE 1 TABLET BY MOUTH DAILY ATBEDTIME;Therapy: 51Fxy8225 to Recorded Rx By: Zion; Dispense: 30 Days ; #:30; Refill: 0; ARIEL = N; Record; Last Updated By: Domenica Topete; 10/11/2017 1:16:16 PM Famotidine 20 MG Oral Tablet; TAKE 1 TABLET AT BEDTIME and TAKE 1 TABLET ASNEEDED during the day;Therapy: 62Yue5188 to Recorded Rx By: Zion; Dispense: 30 Days ; #:60; Refill: 0; ARIEL = N; Record; Last Updated By: Domenica Topete; 10/11/2017 1:16:16 PM Fluticasone Propionate 50 MCG/ACT Nasal Suspension; INHALE 1 (ONE) SPRAY INEACH NOSTRIL EVERY DAY;Therapy: 06Wpa0859hf Recorded Rx By: Chalo; Dispense: 30 Days ; #:16; Refill: 0; ARIEL = N; Record; Last Updated By: Domenica Topete; 10/11/2017 1:16:16 PM Lisinopril 20 MG Oral Tablet;Therapy: 19Dyn3305 to Recorded Rx By: GIANNA ISABEL; Dispense: 30 Days ; #:30; Refill: 0; ARIEL = N; Record; Last Updated By: Beverley Covarrubias; 09/16/2015 1:29:38 PM Meloxicam 7.5 MG Oral Tablet;Therapy: 96Xxg3595 to Recorded Rx By: GIANNA ISABEL; Dispense: [...] Kit; use to test BLOOD SUGAR DAILY;Therapy: 25Tcr2151 to Recorded Rx By: Chalo; Dispense: 1 Days ; #:1; R efill: 0; ARIEL = N; Record; Last Updated By: Domenica Topete; 10/11/2017 1:16:16 PM Mauro-Michael Automatic;Therapy: 07Hqh3438 to Recorded Dispense: 30 Days ; #:1; Refill: 0; ARIEL = N; Record; Last Updated By: Rachel Contreras; 10/10/2013 3:23:22 PM Diagnoses/Problems Acoustic neuroma (225.1) (D33.3) Orders MRI IAC w/wo Contrast; Status:Hold For - Scheduling,Retrospective By ProtocolAuthorization; Requested for:15Sep2020; Perform:[facility]; Due:14Dec2020; Last Updated By:Carole Lanier; 09/26/2018 3:48:32 PM;Ordered; For:Acoustic neuroma; Ordered By:Shane Wilkerson;Radiologist to Determine Optimal Study : YWhat are the patient's signs and symptoms? : s/p CPA lesion resection Signatures Electronically signed by : Shane Wilkerson MD; Sep 26 2018 4:29PM EST (Author)NormalUH Touchworks Vital Signs Date TimeVital SignValuePerforming ToxxoxxedGvhnjpzd81-59-4206 13:29-0400Body cudurn937.02 [place] [employer] FILE CONVERSION OPERATOR-C Work Phone: [phone] [place], [place] [address]15[address]10-30-2025 13:29-0400 Body sefslmsdudy40.1 [degF][employer] FILE CONVERSION OPERATOR-C Work Phone: [phone] [place], [place] [address]10-30-2025 13:29-0400 Diastolic blood vkidhxje93 mm[Hg][employer] FILE CONVERSION OPERATOR-C Work Phone: [facility]10-30-2025 13:29-0400 Heart rate69 /minLisa Dalehfariba FILE CONVERSION OPERATOR-C Work Phone: [phone] [facility] [place] 13:29-0400 Respiratory rate18 /minLisa Dalehholz FILE CONVERSION OPERATOR-C Work Phone: 3([phone])070-[address] [place], [place] [address]6910-30-2025 13:29-0400 SaO2% (BldA) [Mass fraction]99 %La Aichholz FILE CONVERSION OPERATOR-C Work Phone: 1([phone])611-[address] [place], [place] [address]10-30-2025 13:29-0400 Systolic blood oibmzfgj949 mm[Hg]La Aichholz FILE CONVERSION OPERATOR-C Work Phone: 1(768)[address]10-09-2025 09:03-0400 Body yapaaz562.02 cmLisa Aichholz FILE CONVERSION OPERATOR-C Work Phone: [phone]10-09-2025 09:03-0400 Body mass index (BMI) [Ratio]26.7 kg/m2Lisa Aichholz FILE CONVERSION OPERATOR-C Work Phone: [phone])[address]10-09-2025 09:03-0400 Body kusphhhsmzs12.3 [degF]La Aichholz FILE CONVERSION OPERATOR-C Work Phone: [phone])41481 [address]10-09-2025 09:03-0400 Body xeguau89.54 kgLisa Aichholz FILE CONVERSION OPERATOR-C Work Phone: [phone] [address]10-09-2025 09:03-0400 Diastolic blood mm[Hg]La Aichholz FILE CONVERSION OPERATOR-C Work Phone: 1(413)549-[address] [place], [place] [address]10-09-2025 09:03-0400 Heart rate84 /minLisa Aichholz FILE CONVERSION OPERATOR-C Work Phone: 1(219)501-[address] [place], [place] [address]10-09-2025 09:03-0400 Inhaled oxygen flow rate3 L/minLisa Aichholz FILE CONVERSION OPERATOR-C Work Phone: 1(520)558-[address] [place], [place] [address]10-09-2025 09:03-0400 Respiratory rate20 /minLisa Aichholz FILE CONVERSION OPERATOR-C Work Phone: 1(423)779-[address] [place], [place] [address]10-09-2025 09:03-0400 SaO2% (BldA) [Mass fraction]98 %La Aichholz FILE CONVERSION OPERATOR-C Work Phone: [facility] [place]10-09-2025 09:03-0400 Systolic blood uulgytbv01 mm[Hg]La Aichholz FILE CONVERSION OPERATOR-C Work Phone: [facility] [place]-17-2025 11:02-0400 Body .02 cmLisa Aichholz FILE CONVERSION OPERATOR-C Work Phone: 1(907)389-[address] [place], [place] [address]09-17-2025 11:02-0400 Body lesylsseoco71.1 [degF]La Aichholz FILE CONVERSION OPERATOR-C Work Phone: [phone])[address]09-17-2025 11:02-0400 Diastolic blood zeukugay21 mm[Hg]La Aichholz FILE CONVERSION OPERATOR-C Work Phone: 1(692)[address]09-17-2025 11:02-0400 Heart rate92 /minLisa Aichholz FILE CONVERSION OPERATOR-C Work Phone: 1(413)080-[address] [place], [place] 8386409-17-2025 11:02-0400 Inhaled oxygen flow rate3 L/minLisa Aichholz FILE CONVERSION OPERATOR-C Work Phone: [facility] [place]-17-2025 11:02-0400 Respiratory rate18 /minLisa Aichholz FILE CONVERSION OPERATOR-C Work Phone: [facility] [place]-17-2025 11:02-0400 SaO2% (BldA) [Mass fraction]95 %La Aichholz FILE CONVERSION OPERATOR-C Work Phone: [facility] [place]-17-2025 11:02-0400 Systolic blood gihmxexq95 mm[Hg]La Aichholz FILE CONVERSION OPERATOR-C Work Phone: [facility] [place]-13-2025 10:26-0400 Body gsjvkjkwtez84.4 [degF]La Aichholz FILE CONVERSION OPERATOR Work Phone: 1(419)547-[address] [place], [place] [address]Ufgnsrtquf96-07-5612 10:26-0400Diastolic blood zbctsvoa01 mm[Hg]La Aichholz FILE CONVERSION OPERATOR Work Phone: [facility] HospitalLqekxxpvnh32-48-1828 10:26-0400Heart rate85 /min La Aichholz FILE CONVERSION OPERATOR Work Phone: [place] [address]Xpqxdfutnt46-69-2062 10:26-0400Respiratory rate20 /minLisa Aichholz FILE CONVERSION OPERATOR Work Phone: [place] [address]Wcwvzmgpmm28-61-8083 10:26-4220AjD0% (BldA) [Mass fraction]96 %La Aichholz FILE CONVERSION OPERATOR Work Phone: [place] [address]Cvrmuhcmll34-91-3824 10:26-0400Systolic blood wdvqfxzu723 mm[Hg]La Aichholz FILE CONVERSION OPERATOR Work Phone: [facility] HospitalTjffdyktuz06-15-9982 10:08-0400Body mass index (BMI) [Ratio]25.05 kg/m2Lisa Aichholz FILE CONVERSION OPERATOR Work Phone: [facility] HospitalAkungsjnms57-47-6791 10:08-0400Body temperature 98.1 [degF]La Aichholz FILE CONVERSION OPERATOR Work Phone: [facility] HospitalKhmrxttnng57-01-5512 10:08-0400Body wrsyhz95.14 kgLisa Aichholz FILE CONVERSION OPERATOR Work Phone: [facility] HospitalPpfykofzle35-92-3054 10:08-0400Diastolic blood qjnikxnx02 mm[Hg]La Aichholz FILE CONVERSION OPERATOR Work Phone: [place] [address]Fcrddwcehb25-32-5680 10:08-0400Heart rate80 /min La Aichholz FILE CONVERSION OPERATOR Work Phone: [place] [address]Ywsflunqsw32-97-3162 10:08-0400Respiratory rate20 /minLisa Aichholz FILE CONVERSION OPERATOR Work Phone: [place] [address]Qwxihmhwbh62-48-4770 10:08-9614AcS5% (BldA) [Mass fraction]97 %La Aichholz FILE CONVERSION OPERATOR Work Phone: [facility] HealthcareComment on above:with 3L of 02 on 02-06-2025 10:08-0400Systolic blood qakwslfq302 mm[Hg]La Pack FILE CONVERSION OPERATOR Work Phone: [facility] HospitalQpxopkpyto29-06-3221 11:44-0400Body cm La Pack FILE CONVERSION OPERATOR Work Phone: [facility] HospitalTtnuzhyggz98-68-8929 11:44-0400Body mass index (BMI) [Ratio]25.15 kg/m2La Martinezz FILE CONVERSION OPERATOR Work Phone: [facility] HospitalEmbztjvccm64-06-2738 11:44-0400Body temperature 97.81 [degF]La Pack FILE CONVERSION OPERATOR Work Phone: [facility] HospitalPfjpuozkek02-58-7994 11:44-0400Body kzoqgk47.41 kgLa Martinezz FILE CONVERSION OPERATOR Work Phone: [facility] HospitalShtjmlnitw15-59-9896 11:44-0400Diastolic blood lzniymwq40 mm[Hg]La Martinezz FILE CONVERSION OPERATOR Work Phone: [facility] HospitalZhojqsldqf26-56-4161 11:44-0400Heart rate98 /min La Pack FILE CONVERSION OPERATOR Work Phone: [facility] HospitalXqgerwyelj00-39-5858 11:44-0400Respiratory rate24 /minLa Pack FILE CONVERSION OPERATOR Work Phone: [place] [address]Qhzcrfosrx29-69-8263 11:44-3402DuT9% (BldA) [Mass fraction]97 %La Martinezz FILE CONVERSION OPERATOR Work Phone: [place] [address]Zkhrsybqta49-66-3657 11:44-0400Systolic blood aettcwoc884 mm[Hg]La Martinezz FILE CONVERSION OPERATOR Work Phone: [facility] HospitalJheldxfqpc86-84-7857 09:30-0500Body ujxvbl987 cm Ian Soares MD Work Phone: [facility] HospitalJqthedgrcu86-58-5188 09:30-0500Body mass index (BMI) [Ratio]25.15 kg/m2Ian Soares MD Work Phone: [facility] HospitalJjvbiqmtkm04-72-8053 09:30-0500Body temperature 96.6 [degF]Ian Soares MD Work Phone: [facility] HospitalVdgnurtdob64-79-5571 09:30-0500Body lxojvg90.41 kgIan Soares MD Work Phone: [facility] HospitalWmmecnqcdd30-20-8564 09:30-0500Diastolic blood toalhrjx05 mm[Hg]Ian Soares MD Work Phone: [facility] HospitalKlpwnokqok40-06-7973 09:30-0500Heart rate85 /min Ian Soares MD Work Phone: [facility] HospitalFbugnfmnqz77-93-2264 09:30-0500Respiratory rate22 /minIan Soares MD Work Phone: [facility] HospitalCgrinnpwxp70-56-2873 09:30-5645AoY5% (BldA) [Mass fraction]97 %Ian Soares MD Work Phone: [facility] HospitalUfguvihgoa44-19-4787 09:30-0500Systolic blood wpirwmkd026 mm[Hg]Ian Soares MD Work Phone: [facility] HospitalTatrsncpdi82-24-3284 09:09-0500Body zafhoa171.02 cmBrnelsy Cardoso FILE CONVERSION OPERATOR-C Work Phone: 1(902)863-[address] [place], [place] [address]02-21-2025 09:09-0500 Body mass index (BMI) [Ratio]24.7 kg/n5Qjxjvbhl Cardoso FILE CONVERSION OPERATOR-C Work Phone: 1(386)015-[address] [place], [place] [address]02-21-2025 09:09-0500 Body .5 kgBrnelsy Cardoso FILE CONVERSION OPERATOR-C Work Phone: 1(337)369-[address] [place], [place] [address]02-21-2025 09:09-0500 Diastolic blood mm[Hg]Daniel Cardoso FILE CONVERSION OPERATOR-C Work Phone: [facility] [place]02-21-2025 09:09-0500 Heart rate82 /minBrittany Cardoso FILE CONVERSION OPERATOR-C Work Phone: [facility] [place]02-21-2025 09:09-0500 Inhaled oxygen flow rate3 L/minBrittany Cardoso FILE CONVERSION OPERATOR-C Work Phone: [facility] [place]02-21-2025 09:09-0500 Respiratory rate18 /minBrittany Cardoso FILE CONVERSION OPERATOR-C Work Phone: [facility] [place]02-21-2025 09:09-0500 SaO2% (BldA) [Mass fraction]97 %Daniel Cardoso FILE CONVERSION OPERATOR-C Work Phone: [facility] [place]02-21-2025 09:09-0500 Systolic blood jpxzqtdy163 mm[Hg]Daniel Silvazpatrick FILE CONVERSION OPERATOR-C Work Phone: [facility] [place]02-18-2025 13:20-0500 Body cpqziwhenpa76.1 [degF]Stephen Furlong DO Work Phone: [facility]02-18-2025 13:20-0500Diastolic blood mm[Hg]Stephen Furlong DO Work Phone: [facility] Zaujmr77-39-9239 13:20-0500Heart rate 73 /minDennis Furlong DO Work Phone: [facility] Isiwyh96-54-1372 13:20-0500 Respiratory rate16 /minDennis Furlong DO Work Phone: [facility]02-18-2025 13:20-7977FrO7% (BldA) [Mass fraction]96 %Stephen Furlong DO Work Phone: [facility]02-18-2025 13:20-0500Systolic blood mm[Hg]Stephen Jassolong DO Work Phone: [facility] CenterG[facility]02-14-2025 14:56-0500Body rebyonpysmo19.2 [degF]Setphen Jassolong DO Work Phone: [facility] CenterG[facility]02-14-2025 14:56-0500Diastolic blood xvlpvhid30 mm[Hg]Stephenifrha Jassolong DO Work Phone: [facility] CenterG[facility]02-14-2025 14:56-0500Heart rate 79 /Alyis Romerolong DO Work Phone: [facility] CenterG[facility]02-14-2025 14:56-0500 Respiratory rate18 /Alyis Romerolong DO Work Phone: [facility] CenterG[facility]02-14-2025 14:56-6432EbW3% (BldA) [Mass fraction]96 %Stephen Jassolong DO Work Phone: [facility] CenterG[facility]02-14-2025 14:56-0500Systolic blood rzgxukpr881 mm[Hg]Stephen Jassolong DO Work Phone: [facility] CenterGrey[facility] Zggpxn09-12-3276 17:23-0500Body mass index (BMI) [Ratio]24.03 kg/e7Xkwrye Furlong DO Work Phone: [facility] CenterG[facility]02-11-2025 17:23-0500Body fdmndpekxqe41.9 [degF]Stephen Jassolong DO Work Phone: [facility] Center[facility]02-11-2025 17:23-0500Body yftlmx54.5 kgDenifrah Jassolong DO Work Phone: [facility] Center[facility]02-11-2025 17:23-0500Diastolic blood bzrsyjbu50 mm[Hg]Stephen Jassolong DO Work Phone: [facility] CenterG[facility]02-11-2025 17:23-0500Heart rate 94 /minDennis Furlong DO Work Phone: [facility] HospitalRelume Technologies Iwnbbw53-03-2149 17:23-0500 Respiratory rate18 /minDennis Furlong DO Work Phone: [facility] CenterGreystripe Rdvnts20-55-2812 17:23-7428YfZ9% (BldA) [Mass fraction]93 %Stephen Furlong DO Work Phone: [facility] CenterG[facility] Ftunyl38-38-2921 17:23-0500Systolic blood ulistluq876 mm[Hg]Stephen Furlong DO Work Phone: [facility] HospitalSched[facility] [employer]02-04-2025 19:16-0500Body ahzfou092.6 cmDennis Furlong DO Work Phone: [facility] HospitalRel[facility] Ykqjsf99-44-6392 19:16-0500Body hizclykpgea62.81 [degF]Stephen Furlong DO Work Phone: [facility] Yeepfm62-49-6209 19:16-0500Diastolic blood rfyyplja08 mm[Hg]Stephen Furlong DO Work Phone: [facility] HospitalSched[facility] [employer]02-04-2025 19:16-0500Heart rate 82 /minDennis Furlong DO Work Phone: [facility] CenterGreystripe Trptwy17-34-2030 19:16-0500 Respiratory rate18 /minDennis Furlong DO Work Phone: [facility] CenterG[facility] Ihvuhc73-62-4173 19:16-5621EgS5% (BldA) [Mass fraction]92 %Stephen Furlong DO Work Phone: [facility] HospitalRel[facility] Fyeocv34-55-4278 19:16-0500Systolic blood qdvpilhf916 mm[Hg]Stephen Furlong DO Work Phone: [facility] CenterG[facility] Rovpgg74-47-0067 14:05-0500Heart rate 91 /Geo Cardoso FILE CONVERSION OPERATOR-C Work Phone: 1(419)547-[address] [place], [place] [address]01-31-2025 14:05-0500 Respiratory rate18 /minBrittany Cardoso FILE CONVERSION OPERATOR-C Work Phone: 1(866)[address]01-31-2025 09:25-0500 Body ylwrsnpntoa87.5 [degF]Daniel Cardoso FILE CONVERSION OPERATOR-C Work Phone: [phone])94881 [address]01-31-2025 09:25-0500 Diastolic blood kpachrjb18 mm[Hg]Daniel Cardoso FILE CONVERSION OPERATOR-C Work Phone: 1([phone])8[address]81 [address]01-31-2025 09:25-0500 Inhaled oxygen flow rate4 L/minBrittany Cardoso FILE CONVERSION OPERATOR-C Work Phone: [phone])[phone] [address]01-31-2025 09:25-0500 SaO2% (BldA) [Mass fraction]90 %Daniel Cardoso FILE CONVERSION OPERATOR-C Work Phone: 1(318)[address]01-31-2025 09:25-0500 Systolic blood ukyacgjo034 mm[Hg]Daniel Cardoso FILE CONVERSION OPERATOR-C Work Phone: 1(298)23481 [address]01-31-2025 06:00-0500 Body tlckyb43.3 kgBrittany Cardoso FILE CONVERSION OPERATOR-C Work Phone: 1(360)60781 [address]01-30-2025 17:05-0500 Body zzunxx653.56 cmBrittany Cardoso FILE CONVERSION OPERATOR-C Work Phone: 1(208)601-[address] [place], [place] [address]01-28-2025 12:00-0500 Inhaled oxygen %Daniel Cardoso FILE CONVERSION OPERATOR-C Work Phone: 1(196)03581 [address]11-07-2024 09:43-0500 Body sspjad789 cmBrittany Cardoso FILE CONVERSION OPERATOR Work Phone: [facility] HospitalBkiiuotaau39-26-3935 09:43-0500Body mass index (BMI) [Ratio]24.13 kg/g8MmnellwfDaniel Staffordk FILE CONVERSION OPERATOR Work Phone: [facility] HospitalIiohqfvrvu52-33-6544 09:43-0500Body temperature 96.69 [degF]Daniel Cardoso FILE CONVERSION OPERATOR Work Phone: [facility] HospitalSqkgjvxxnx15-85-4666 09:43-0500Body mugktq82.78 kgDaniel Staffordk FILE CONVERSION OPERATOR Work Phone: [facility] HospitalAuufmkbcak46-77-7614 09:43-0500Diastolic blood nnfyhdxy59 mm[Hg]Daniel Staffordk FILE CONVERSION OPERATOR Work Phone: [facility] HospitalTjhilfnkju42-94-5593 09:43-0500Heart rate85 /min Daniel Staffordk FILE CONVERSION OPERATOR Work Phone: [facility] HospitalOqxqlyhiar82-71-1650 09:43-0500Respiratory rate18 /minDaniel Staffordk FILE CONVERSION OPERATOR Work Phone: [facility] HospitalSvriobxnaf38-16-4874 09:43-2211NyF2% (BldA) [Mass fraction]94 %Daniel Staffordk FILE CONVERSION OPERATOR Work Phone: noH[facility] HospitalBtnxpsytzs24-20-3102 09:43-0500Systolic blood knbgutpe907 mm[Hg]Daniel Staffordk FILE CONVERSION OPERATOR Work Phone: [facility] Encounters Encounter DateEncounter TypeCare ProviderFacilityStart: 09-12-2025 End: 48-43-5607sjkghvpygmUhqn J Aichholz NP-C Work Phone: -[facility] ClydeStart: 09-12-2025 End: 33-82-9068Inxzvhh encounter procedureLisa Heath Pack FILE CONVERSION OPERATOR-C-[facility] Work Phone: Start: 47-58-3848Aeh-patient / Non-visitLisa Heath Pack NP-C-[facility] Work Phone: Start: 08-22-2025 End: 14-88-2430dxruxgwajgXbza Heath Crossfariba FILE CONVERSION OPERATOR-C Work Phone: [facility] Work Phone: Start: 08-22-2025 End: 97-85-8882Cnwqwas encounter procedureLisa Heath Pack FILE CONVERSION OPERATOR-C-[facility] Work Phone: Start: 36-08-5367Znx-patient / Non-visitLisa Heath Pack FILE CONVERSION OPERATOR-C-[facility] Work Phone: Start: 07-31-2025 End: 78-07-6457sertpeellcIdfj J Americafariba FILE CONVERSION OPERATOR-C Work Phone: [facility] Work Phone: Start: 07-31-2025 End: 44-69-9092Nqixcrv encounter procedureLisa Heath Huntercarmenfariba FILE CONVERSION OPERATOR-C-[facility] Work Phone: Start: 08-23-1214Rkmbzgs encounter procedureLi Ramone FILE CONVERSION OPERATOR-C Work Phone: [facility]art: 07-10-2025 End: 91-61-1719Rmafgfikm Result EncounterLisa Dalehholz FILE CONVERSION OPERATOR Work Phone: [facility] External Department UnsolicitedStart: 07-10-2025 End: 07-98-8107Gnndzilsc Result EncounterLisa Dalehholz FILE CONVERSION OPERATOR Work Phone: [facility] External Department UnsolicitedStart: 06-26-2025 End: 49-88-7135Uuevfs flowsheetLisa Dalehholz FILE CONVERSION OPERATOR Work Phone: [facility] CWM FMStart: 06-26-2025 End: 56-30-2605Beehfw flowsheetLisa Dalehholz FILE CONVERSION OPERATOR Work Phone: [facility] FMStart: 06-26-2025 End: 89-43-7192Hyenam outpatient visit 25 minutesLisa Hunterhholz FILE CONVERSION OPERATOR Work Phone: [facility] FMComment on above:Edema of both lower legs (Primary Dx); Primary hypertension ; Chronic obstructive pulmonary disease, unspecified COPD type ([facility]); Type 2 diabetes mellitus without complication, without long-term current use of insulin ([facility]); Cigarette nicotine dependence without complication; Depression, unspecified ; Generalized anxiety disorder ; Cellulitis of left lower extremityStart: 06-26-2025 End: 42-65-5696lvbpvavwcxTCQK AICHHOLZNot AvailableStart: 06-13-2025 End: 34-95-6676Lgnfia OnlyLa Pack FILE CONVERSION OPERATOR Work Phone: [facility] C[facility] FMComment on above:Iron deficiency (Primary Dx); Abnormal CBCStart: 06-07-2025 End: 93-10-8622ItcpkqYiuh Naderer MD Work Phone: [facility] FMComment on above:Chronic obstructive pulmonary disease, unspecified COPD type ([facility])Start: 06-05-2025 End: 23-29-5834BlxeyoOilg Aichholz FILE CONVERSION OPERATOR Work Phone: [facility] CWM FMComment on above:Primary hypertension (Primary Dx); Hyperlipidemia, unspecified ; Vitamin D deficiency; Type 2 diabetes mellitus without complications ([facility]); Gastro-esophageal reflux disease without esophagitis; Depression, unspecifiedStart: 05-06-2025 End: 74-11-9736FgarihNrsc Aichholz FILE CONVERSION OPERATOR Work Phone: [facility] C[facility] FMComment on above:Asthma with COPD (chronic obstructive pulmonary disease) ([facility])Start: 80-67-6454Clxmppt encounter procedure La Pack FILE CONVERSION OPERATOR Work Phone: [facility] HealthcareStart: 04-01-2025 End: 86-81-8215VxsxhsBnol Aichholz FILE CONVERSION OPERATOR Work Phone: [facility] C[facility] FMComment on above:Depression, unspecified ([facility]/HCC)Osteoarthritis, unspecified osteoarthritis type, unspecified site (Primary Dx)Start: 03-25-2025 End: 06-93-9964Gjcedhrcs Result EncounterLisa Aichholz FILE CONVERSION OPERATOR Work Phone: [facility] External Department UnsolicitedStart: 03-25-2025 End: 14-80-7342Ngqrekpoc Result EncounterLisa Aichholz FILE CONVERSION OPERATOR Work Phone: [facility] External Department UnsolicitedStart: 03-25-2025 End: 65-38-4254Ggxnkf OnlyLisa Dalehholz FILE CONVERSION OPERATOR Work Phone: [facility]OL[facility] CWM FMComment on above:Acquired hypothyroidism (CMS/HCC) (Primary Dx)Start: 02-25-2025 End: 03-57-5725IincdxDvqf Naderer MD Work Phone: [facility] CWM FMComment on above:Asthma with COPD (chronic obstructive pulmonary disease) (CMS/HCC); Chronic obstructive pulmonary disease, unspecified COPD type (CMS/HCC)Start: 02-21-2025 End: 00-22-0481Kabjjhdcs Result EncounterGeneric External Data ProviderNOMS External Department UnsolicitedStart: 02-21-2025 End: 40-97-0879Fzamwheaw Result EncounterGeneric External Data ProviderNOMS External Department UnsolicitedStart: 02-20-2025 End: 59-53-3395WqfwlyArhi Aichholz FILE CONVERSION OPERATOR Work Phone: [facility] CWM FMComment on above:Iron deficiency anemia due to chronic blood lossStart: 02-19-2025 End: 24-90-5529Cycyzc OnlyLisa Dalehholz FILE CONVERSION OPERATOR Work Phone: [facility] CWM FMComment on above:Elevated TSHStart: 02-18-2025 End: 01-97-6819Hhkmdeuhg Result EncounterLisa Aichholz FILE CONVERSION OPERATOR Work Phone: [facility] External Department UnsolicitedStart: 02-18-2025 End: 91-50-3552Knqknbvui Result EncounterLisa Aichholz FILE CONVERSION OPERATOR Work Phone: [facility] External Department UnsolicitedStart: 02-06-2025 End: 50-07-8900Yszlpl outpatient visit 25 minutesLisa Pack FILE CONVERSION OPERATOR Work Phone: noMS CWM FMComment on above:Type [...] Acute hypoxic respiratory failure (CMS/HCC)Start: 02-06-2025 End: 32-26-5850zrrwgttrahVXTQ DALEHHOLZNot AvailableStart: 01-23-2025 End: 67-71-9998Ezekim outpatient visit 25 minutesLisa Pack FILE CONVERSION OPERATOR Work Phone: [facility] CWM FMComment on above:Scalp laceration, sequela (Primary Dx); Cigarette nicotine dependence without complication; COPD exacerbation (CMS/HCC)Start: 01-23-2025 End: 37-45-3280xxcdjbhgjsEPEW DALEHHOLZNot AvailableStart: 01-14-2025 End: 22-78-6954Idlaffyanelis Soares MD Work Phone: [facility] CWM FMStart: 01-14-2025 End: 90-44-0911Kmnyivbeth Soares MD Work Phone: [facility] CWM FMStart: 01-14-2025 End: 94-65-3929Mgzfbbonzwnc care manage srvc 14 day dischargeIan Soares MD Work Phone: [facility] CWM FMComment on above:Influenza A (Primary Dx); Chronic obstructive pulmonary disease, unspecified COPD type (CMS/HCC); Acute hypoxic respiratory failure (CMS/HCC); Type 2 diabetes mellitus without complication, without long-term current use of insulin (CMS/HCC); Primary hypertension (CMS/HCC); Benign neoplasm of cranial nerves (CMS/HCC); Type 2 diabetes mellitus with diabetic polyneuropathy ([facility]/HCC)Start: 01-14-2025 End: 67-23-4894kqdlhzjewnKEDO ANGLERNot AvailableStart: 01-04-2025 End: 45-93-8177swpraxsjxiEideovtg Fer Cardoso FILE CONVERSION OPERATOR-C Work Phone: [facility] Work Phone: Start: 01-04-2025 End: 32-49-3702Sngujic encounter procedureDaniel Cardoso FILE CONVERSION OPERATOR-C Work Phone: [facility] Work Phone: Start: 01-01-2025 End: 04-73-6702kahteroniuOntifx G Furlong DO Work Phone: [facility] Internal Medicine - Family MedicineComment on above:Acute hypoxic respiratory failure ([facility]) (Primary Dx); Aspiration pneumonia, unspecified aspiration pneumonia type, unspecified laterality, unspecified part of lung ([facility]); Chronic obstructive pulmonary disease, unspecified COPD type ([facility]); Influenza A; Type 2 diabetes mellitus without complication, without long-term current use of insulin ([facility]); Other abnormalities of gait and mobility; AnxietyStart: 12-28-2024 End: 70-20-3186xkmhwuykffBuloel Elfego Macias DO Work Phone: [facility] Internal Medicine - Family MedicineComment on above:Acute hypoxic respiratory failure ([facility]) (Primary Dx); Chronic obstructive pulmonary disease, unspecified COPD type ([facility]); Influenza A; Other abnormalities of gait and mobilityStart: 12-25-2024 End: 13-48-1893rosdyzvikqTeqzlx Elfego Jassolong DO Work Phone: [facility] Internal Medicine - Family MedicineComment on above:Chronic obstructive pulmonary disease, unspecified COPD type ([facility]) (Primary Dx); Influenza A; Other abnormalities of gait and mobility; Anxiety; Cigarette smokerStart: 12-18-2024 End: 91-47-1604gvcrbqhvjeSdczsx G Romerolong DO Work Phone: [facility] - Family MedicineComment on above:Acute hypoxic respiratory failure ([facility]) (Primary Dx); Chronic obstructive pulmonary disease, unspecified COPD type ([facility]); Influenza A; Aspiration pneumonia, unspecified aspiration pneumonia type, unspecified laterality, unspecified part of lung ([facility] [facility]); Depression, unspecified depression type; Cigarette smoker; Type 2 diabetes mellitus without complication, without long-term current use of insulin ([facility]); AnxietyStart: 01-21-0723Tmn-patient / Non-visitBrittany Cardoso FILE CONVERSION OPERATOR-C Work Phone: [facility] Work Phone: Start: 77-54-6364Vrt-patient / Non-visitBrittany Cardoso FILE CONVERSION OPERATOR-C Work Phone: [facility] Pulmonary Work Phone: Start: 99-11-8030Qhn-patient / Non-visitBrittany Cardoso FILE CONVERSION OPERATOR-C Work Phone: [facility] Cardiology Work Phone: Start: 13-18-8847Ebg-patient / Non-visitBrittany Cardoso FILE CONVERSION OPERATOR-C Work Phone: [facility] Physician [facility] ER Work Phone: Start: 12-09-2024 End: 97-20-4319Umsipnizlb and management of inpatientBrittany Cardoso FILE CONVERSION OPERATOR-C Work Phone: [facility] [place] [facility] Work Phone: Start: 12-09-2024 End: 47-59-1287ffcetxzamfSUQFTWC PROVIDERFacility:METROHealthStart: 12-09-2024 End: 54-02-9347Kalkauesc Result EncounterGeneric External Data ProviderNOMS External Department UnsolicitedStart: 12-09-2024 End: 30-37-6308Drkpfwjqd Result EncounterGeneric External Data ProviderNOMS External Department UnsolicitedStart: 12-06-2024 End: 64-30-2861QsxvqbChvk Howard MANOMS CWM FMComment on above:Iron deficiency anemia due to chronic blood lossStart: 11-27-2024 End: 41-69-0081NrtkeoEqan Wayne VASQUEZ CWM FMComment on above:Asthma with COPD (chronic obstructive pulmonary disease) ([facility])Start: 11-12-2024 End: 06-41-2649ThjtmeEykpamrn Cardoso FILE CONVERSION OPERATOR Work Phone: NOYT CWM FMComment on above:Iron deficiency anemia due to chronic blood lossStart: 10-22-2024 End: 56-26-3291HxgzetSbqluefp Cardoso FILE CONVERSION OPERATOR Work Phone: noms CWM FMComment on above:Gastro-esophageal reflux disease without esophagitisStart: 10-22-2024 End: 39-99-8545HiraldAolfmabv Cardoso FILE CONVERSION OPERATOR Work Phone: noms CWM FMComment on above:Depression, unspecified ([facility])Start: 09-20-2024 End: 97-72-8891Nfcodi flowsheetBrittany Cardoso FILE CONVERSION OPERATOR Work Phone: NOSG CWM FMStart: 09-20-2024 End: 71-66-8783Ndumwe flowsheetBrittany Cardoso FILE CONVERSION OPERATOR Work Phone: NOMS CWM FMStart: 09-20-2024 End: 30-90-0912Hcmjdk outpatient visit 15 minutesBrittany Cardoso FILE CONVERSION OPERATOR Work Phone: NOMS CWM FMComment on above:Primary hypertension ([facility]) (Primary Dx); Type 2 diabetes mellitus without complication, without long-term current use of insulin ([facility]); Other hyperlipidemia ([facility]); Asthma with COPD (chronic obstructive pulmonary disease) ([facility]); Non-recurrent acute serous otitis media of left earStart: 09-20-2024 End: 18-15-5367pwkrgrjzneZUZENZBFAna Paula Carroll AvailableStart: 09-11-2024 End: 82-29-4493IiuewcEuyjonntConchis Cardoso FILE CONVERSION OPERATOR Work Phone: noms CWM FMComment on above:Type 2 diabetes mellitus without complications (CMS/HCC)Hyperlipidemia, unspecified (CMS/HCC)Other bursitis of elbow, left elbowStart: 09-03-2024 End: 52-88-0138TxqyquMobzxfx EllykinsNOMS CWM FMComment on above:Asthma with COPD (chronic obstructive pulmonary disease) (CMS/HCC)Start: 08-27-2024 End: 01-07-8918VrvkjfDsvaiykuConchis Cardoso FILE CONVERSION OPERATOR Work Phone: noms CWM FMComment on above:Asthma with COPD (chronic obstructive pulmonary disease) (CMS/HCC)Start: 08-01-2024 End: 60-44-9256CptzieOrhdsj Chanel MANOMS CWM IMComment on above:Hyperlipidemia, unspecified (CMS/HCC); Other bursitis of elbow, left elbow; Depression, unspecified (CMS/HCC); Type 2 diabetes mellitus without complications (CMS/HCC)Start: 07-25-2024 End: 34-93-6120LslangMydhxq Chanel MANOMS CWM IMComment on above:Other bursitis of elbow, left elbowStart: 07-23-2024 End: 75-70-2523QxwmvwZrspugbfConchis Cardoso FILE CONVERSION OPERATOR Work Phone: noms CWM FMComment on above:Type 2 diabetes mellitus without complications (CMS/HCC); Hyperlipidemia, unspecified (CMS/HCC)Start: 07-07-2024 End: 69-74-0537Mcohamani Cardoso FILE CONVERSION OPERATOR Work Phone: noms CWM FMComment on above:Iron deficiency anemia due to chronic blood loss (Primary Dx)Start: 01-16-2024 End: 68-67-4584Oizlbyjxycriselda Sánchez MD Work Phone: noms External Department UnsolicitedStart: 01-16-2024 End: 09-71-8422Zcmeovyly Result EncounterSservando Sánchez MD Work Phone: noms External Department UnsolicitedStart: 12-15-2023 End: 64-05-8693bjkzlkpgxnHrkwksd LiamFacility:FTMCStart: 12-15-2023 End: 93-78-7939Lyxnzdf encounter procedureZamzam Wheeler [facility] Start: 12-12-2023 End: 84-52-7242Taitukwun Result EncounterSservando Sánchez MD Work Phone: noms External Department UnsolicitedStart: 12-12-2023 End: 23-29-7754Yzgdhgkjo Result EncounterSservando Sánchez MD Work Phone: noms External Department UnsolicitedStart: 11-30-2023 End: 53-55-5931vntavmhxncUucbdeb LiamFacility:FTMCStart: 10-28-2023 End: 97-32-0528Cxa-admission assessmentZamzam Wheeler [facility] Start: 01-05-2023 End: 50-75-0993qvrfdpbsgmGR GIANNA TARA AMBURNFacility:W9Oqown: 04-26-2022 End: 76-63-1873vcgxviqsdgCH GIANNA TARA AMBURNFacility:F5Ydfee: 04-08-2022 End: 66-49-0778mvaobjbrpuHE GIANNA TARA AMBURNFacility:H1 Procedures DateProcedureProcedure DetailPerforming ClinicianStart: 38-11-2246HBV CBC WITH AUTO DIFFLisa Aicrosalee FILE CONVERSION OPERATOR Work Phone: Start: 06-04-9236RXL THYROID STIM HORMONELisa Ramone FILE CONVERSION OPERATOR Work Phone: start: 71-14-9641QFH THYROXINE (T4) FREELa Pack FILE CONVERSION OPERATOR Work Phone: Start: 37-95-3950UJ ORLY PERF SPECT REST STRGeneric External Data ProviderStart: 21-81-5600TK TOMOSYNTHESIS SCREENING BILisa Ramone FILE CONVERSION OPERATOR Work Phone: [phone]: 30-87-8143PTP CBC WITH AUTO DIFFLisa Ramoen FILE CONVERSION OPERATOR Work Phone: [phone]: 80-08-7509IawkqbdzhqvMtjw Ramone FILE CONVERSION OPERATOR Work Phone: Start: 43-95-2083Cbvaa chest X-rayBrittany Cardoso FILE CONVERSION OPERATOR-C Work Phone: Start: 75-46-8515Yiqnb chest X-rayBrittany Cardoso FILE CONVERSION OPERATOR-C Work Phone: Start: 48-63-2398Kvkmi X-ray abdomenBrittany Cardoso FILE CONVERSION OPERATOR-C Work Phone: Start: 38-51-0090Fcmex chest X-rayBrittany Cardoso FILE CONVERSION OPERATOR-C Work Phone: Start: 15-96-7239ZVVHF CULTURE 2Generic External Data ProviderStart: 24-51-8855Enbjdka microbial cultureBrittany Cardoso FILE CONVERSION OPERATOR-C Work Phone: Start: 02-54-4419Boubrnow identified in Blood by CultureBrittany Cardoso FILE CONVERSION OPERATOR-C Work Phone: Start: 96-08-0980Vmml stain microscopyBrittany Cardoso FILE CONVERSION OPERATOR-C Work Phone: Start: 72-91-9622Gcngalpywb glycosylated o7nWnwpztvh Cardoso FILE CONVERSION OPERATOR Work Phone: Start: 90-59-5756AX TOMOSYNTHESIS SCREENING Rosalina Sánchez MD Work Phone: Start: 49-53-1627MheyxjxhzmxExekmvyj Walker GARZA Work Phone: Start: 40-88-6598PA PULMONARY FUNCTION TESTSservando Sánchez MD Work Phone: Plan of Treatment DateCare ActivityDetailAuthorStart: 97-67-8844Dynxcgha screeningDiabetes: Retinopathy ScreeningNOMN HealthcareStart: 06-25-2026Medicare Annual Wellness (AWV)Medicare Annual Wellness (AWV)[facility] HealthcareStart: 42-79-7029Uyjrvwgph for malignant neoplasm of breastMammogramNOMS HealthcareStart: 05-92-0659Fzpay screening for proteinDiabetes: Urine Protein ScreeningNOMN HealthcareStart: 52-77-6910Blzsotvzd for malignant neoplasm of colonNOMS HealthcareStart: 73-58-4518Qqajwcz referralSelect Medical [facility] Work Phone: Start: 59-23-0202Wgcjvazdpq A1c measurementDiabetes: Hemoglobin A3UZWCV HealthcareStart: 07-31-2025 End: 62-28-0726Cacqtow encounter fxdabzbbq17/17/2025 11:00 AM EDT Office Visit [facility] FM [address] [place] [address] La Pack NP [address] [place] [address] [facility] FMStart: 06-11-2274DPDRZ-19 Vaccine ( season)COVID-19 Vaccine ( season)[facility] HealthcareStart: 07-15-2025 Influenza vaccinationNOMN HealthcareStart: 06-26-2025 End: 18-79-1330Qseju metabolic 1998 panel - Serum or PlasmaBasic metabolic panel Lab Routine Primary hypertension Type 2 diabetes mellitus without complication, without long-term current use of insulin (HCC) Edema of both lower legs Expected: 06/26/2025 (Approximate), Expires: 06/26/2026[facility] Work Phone: Comment on above:Expected: 06/26/2025 (Approximate), Expires: 06/26/2026Start: 06-26-2025 End: 82-36-5667Kvbxcoc encounter procedureNOMS [facility] FMComment on above:Primary hypertension (Primary Dx); Chronic obstructive pulmonary disease, unspecified COPD type (HCC); Type 2 diabetes mellitus without complication, without long-term current use of insulin (HCC); Cigarette nicotine dependence without complicationStart: 89-39-8035Pucsarxbk vaccinationInfluenza Vaccine (#1)NOMS HealthcareComment on above:Postponed from 07/15/2024 (Patient Refused)Start: 05-07-2025 End: 42-95-9798Lbciycy encounter cojxydzro61/24/2025 10:00 AM EDT Office Visit [facility] [address] [place] [address] La Pack NP [address] [place] [address] [facility] CW FMStart: 04-16-2025 End: 33-61-8889Upkqhya encounter procedureNOMS [facility] FMStart: 03-25-2025 End: 18-03-4113Xcsqruivxaw [Units/volume] in Serum or PlasmaTSH Lab Routine Acquired hypothyroidism (CMS/HCC) Expected: 03/25/2025 (Approximate), Expires: 03/25/2026[facility] Work Phone: Comment on above:Expected: 03/25/2025 (Approximate), Expires: 03/25/2026Start: 03-25-2025 End: 51-06-7964Nrjlhoryp (T4) free [Mass/volume] in Serum or PlasmaT4, free Lab Routine Acquired hypothyroidism (CMS/HCC) Expected: 03/25/2025 (Approximate), Expires:03/25/2026NOMN HealthcareComment on above:Expected: 03/25/2025 (Approximate), Expires: 03/25/2026Start: 03-22-2025 End: 38-46-7696XXP W Auto Differential panel - BloodCBC and differential Lab Routine Iron deficiency anemia due to chronic blood loss Expected: 03/22/2025 (Approximate), Expires: 02/20/2026[facility] HealthcareComment on above:Expected: 03/22/2025 (Approximate), Expires: 02/20/2026Start: 03-22-2025 End: 36-47-7280Alya and Iron binding capacity panel - Serum or PlasmaIron level Lab Routine Iron deficiency anemia due to chronic blood loss Expected: 03/22/2025 (Approximate), Expires: 02/20/2026[facility] Work Phone: Comment on above:Expected: 03/22/2025 (Approximate), Expires: 02/20/2026Start: 03-21-2025 End: 78-05-6242Mfrhclhurkg [Units/volume] in Serum or PlasmaTSH Lab Routine Elevated TSH Expected: 03/21/2025 (Approximate), Expires: 02/19/2026[facility] Healthcare Work Phone: Comment on above:Expected: 03/21/2025 (Approximate), Expires: 02/19/2026Start: 03-21-2025 End: 37-59-1317Aypfzxzzs (T4) free [Mass/volume] in Serum or PlasmaT4, free Lab Routine Elevated TSH Expected: 03/21/2025 (Approximate), Expires: 02/19/2026[facility] HealthcareComment on above:Expected: 03/21/2025 (Approximate), Expires: 02/19/2026Start: 05-59-0941Oerhchisvu A1c measurementDiabetes: Hemoglobin A1C [facility] HealthcareStart: 26-43-7581Sectudff screeningDiabetes: Retinopathy ScreeningHUNTSMAN MENTAL HEALTH [facility]STITUTE HealthcareStart: 04-25-2025Medicare Annual Wellness (AWV)Medicare Annual Wellness (AWV)[facility] HealthcareStart: 02-06-2025 End: 902034-lyrdqkiknselup D3 [Mass/volume] in Serum or PlasmaVitamin D 25 hydroxy Lab Routine Vitamin D deficiency Expected: 02/06/2025 (Approximate), Expires: 02/06/2026[facility] HealthcareComment on above:Expected: 02/06/2025 (Approximate), Expires: 02/06/2026Start: 02-06-2025 End: 52-59-4310UCL W Auto Differential panel - BloodCBC and differential Lab Routine Iron deficiency anemia due to chronic blood loss Expected: 02/06/2025 (Approximate), Expires: 02/06/2026[facility] HealthcareComment on above:Expected: 02/06/2025 (Approximate), Expires: 02/06/2026Start: 02-06-2025 End: 72-73-3822Lfpdoesxhtyqg metabolic 2000 panel - Serum or PlasmaComprehensive metabolic panel Lab Routine Primary hypertension (CMS/HCC) Type 2 diabetes mellitus without complication, without long-term current use of insulin (CMS/HCC) Expected: 02/06/2025 (Approximate), Expires: 02/06/2026[facility] Healthcare Comment on above:Expected: 02/06/2025 (Approximate), Expires: 02/06/2026Start: 02-06-2025 End: 32-60-2626Wtfhpwyp [Mass/volume] in Serum or PlasmaFerritin Lab Routine Iron deficiency anemia due to chronic blood loss Expected: 02/06/2025 (Approxim ate), Expires: 02/06/2026[facility] HealthcareComment on above:Expected: 02/06/2025 (Approximate), Expires: 02/06/2026Start: 02-06-2025 End: 38-74-1347Sqlarrzxei A1c/Hemoglobin.total in BloodHemoglobin A1c Lab Routine Type 2 diabetes mellitus without complication, without long-term current use of insulin (CMS/HCC) Expected: 02/06/2025 (Approximate), Expires: 02/06/2026 NOMS HealthcareComment on above:Expected: 02/06/2025 (Approximate), Expires: 02/06/2026Start: 02-06-2025 End: 39-22-0616Vase + transferrin + TIBCIron + transferrin + TIBC Lab Routine Iron deficiency anemia due to chronic blood loss Expected: 02/06/2025 (Approximate), Expires: 02/06/2026[facility] HealthcareComment on above:Expected: 02/06/2025 (Approximate), Expires: 02/06/2026Start: 02-06-2025 End: 44-49-7207Ltipd 1996 panel - Serum or PlasmaLipid panel Lab Routine Other hyperlipidemia ([facility]) Expected: 02/06/2025 (Approximate), Expires:02/06/2026 NOM[facility] HealthcareComment on above:Expected: 02/06/2025 (Approximate), Expires: 02/06/2026Start: 02-06-2025 End: 69-36-7584ZO Breast - bilateral ScreeningBilateral screening mammogram Imaging Routine Screening mammogram, encounter for Expected: 02/06/2025 (Approximate), Expires: 04/08/2026[facility] Healthcare Work Phone: Comment on above:Expected: 02/06/2025 (Approximate), Expires: 04/08/2026Start: 02-06-2025 End: 17-77-4462Xppsbkulobox/Creatinine panel in random UrineMicroalbumin / creatinine, urine ratio Lab Routine Primary hypertension ([facility]) Type 2 diabetes mellitus without complication, without long-term current use of insulin ([facility]) Expected: 02/06/2025 (Approximate), Expires: 02/06/2026[facility] HealthcareComment on above:Expected: 02/06/2025 (Approximate), Expires: 02/06/2026Start: 02-06-2025 End: 51-30-7470Dpjqajiqynr [Units/volume] in Serum or PlasmaTSH Lab Routine Generalized anxiety disorder ([facility]) Expected: 02/06/2025 (Approximate), Expires:02/06/2026NOMN HealthcareComment on above:Expected: 02/06/2025 (Approximate), Expires: 02/06/2026Start: 02-06-2025 End: 55-87-1607Ibqfruiwwx complete panel - UrineUrinalysis with reflex microscopic (clean catch) Lab Routine Primary hypertension ([facility]/HCC) Type 2 d iabetes mellitus without complication, without long-term current use of insulin ([facility]) Expected:02/06/2025 (Approximate), Expires: 02/06/2026[facility] Healthcare Comment on above:Expected: 02/06/2025 (Approximate), Expires: 02/06/2026Start: 02-06-2025 End: 74-87-9439Kshxdor encounter thwsawiid60/26/2025 10:00 AM EDT Office Visit [facility] [address] [place] [address] La Pack NP [address] [place] [address] [facility] CWM FMStart: 01-31-2025 End: 94-34-5941Tnpuswm encounter zivksvduz03/20/2025 11:00 AM EDT Office Visit TIA MIRANDA [address] [place] [address] Tashia Polk PA [address] [place] [address] TIA LEOtart: 89-68-1688Ynoqxarus for malignant neoplasm of breast MammogramNOMN HealthcareStart: 01-14-2025 End: 55-29-1118Wdkpaxd encounter aupnvamyk15/03/2025 9:30 AM EST Office Visit [facility] [address] [place] [address] Ian Soares MD [address] [place] [address] [facility] FMComment on above:ArrivedStart: 05-63-7899Tbbog screening for proteinDiabetes: Urine Protein ScreeningNOMN HealthcareStart: 12-20-2024 End: 39-65-6482Aviqnrt encounter nvtwbnoxd98/06/2025 10:00 AM EST Office Visit [facility] [address] [place] [address] Daniel Cardoso NP [address] [place] [address] [facility] CWM FMStart: 54-25-3977QvxitfcdyHolzer Medical Center – [facility] Start: 91-85-2978Zufvmfbmliqkeo of prophylactic treatmentTrumbull Regional Medical Centertart: 35-42-0251Gejctexg to rehabilitation physicianTrumbull Regional Medical Centertart: 00-77-4054UdkwyysfuTrumbull Regional Medical Centertart: 69-61-9882TrcocafmhTrumbull Regional Medical Centertart: 26-40-9678Pdhfzxkzhowp [facility] Centertart: 66-96-8734Olmttugs admissionTrumbull Regional Medical Centertart: 44-09-3774Ahxyewmw identified in Blood by Culture Blood CultureTrumbull Regional Medical Centertart: 74-52-1046Gaorsgaxayo Ventilation, 24-96 Consecutive HoursRespiratory Ventilation, 24-96 Consecutive HoursTrumbull Regional Medical Centertart: 34-64-5617Uvswaznixouh Vaccine: 65+ Years (1 of 2 - PCV)Pneumococcal Vaccine: 65+ Years (1 of 2 - PCV)NOMS HealthcareComment on above:Postponed from 1959 (Other Patient Reasons) Start: 10-10-2024 End: 47-36-0024Qlnjpnz encounter npbpkeqwk18/27/2024 9:20 AM EST Office [facility] [address] [facility] [address] [place] [address] Tashia Polk PA [address] [place] [address] [facility] [facility] ROUTEStart: 09-20-2024 End: 92-08-8896Mazuhwk encounter procedureNOMS CWM FMComment on above:Arrived Start: 07-18-2024 End: 54-36-9108Yskffsv encounter procedureNOMS [place] [facility] ROUTEStart: 28-20-5219Mpnkkuvib vaccinationNOMN HealthcareStart: 06-86-3122Dcqlowutlb A1c measurementDiabetes: Hemoglobin P3EUTWW HealthcareStart: 32-46-9404Fshk Risk ScreeningFall Risk ScreeningMemorial Hospital SystemStart: 2003 Administration of varicella zoster vaccineZoster (Shingles) Vaccine (1 of 2) [address] Biotart: 48-29-0957QWlC,Tdap and Td Vaccines (1 - Tdap) DTaP,Tdap and Td Vaccines (1 - Tdap)[facility] SystemStart: 1971 Adult BMI ScreeningAdult BMI ScreeningUNC Health Blue Ridge - Valdesetart: 1971 Diabetic foot examinationDiabetic Foot ExamMemorial Hospital SystemStart: 60-65-6123Apzacqczgr ScreeningDepression ScreeningMemorial Hospital SystemStart: 13-56-2812Pvtolhl ScreeningTobacco ScreeningMemorial Hospital SystemStart: 96-35-3449MVsN/Tdap/Td Vaccines (1 - Tdap)DTaP/Tdap/Td Vaccines (1 - Tdap)[facility] HealthcareStart: 91-49-8083Fwclzzwegsle Vaccine: 65+ Years (1 of 2 - PCV) Pneumococcal Vaccine: 65+ Years (1 of 2 - PCV)[facility] HospitalStart: 1953 Glaucoma screeningDiabetic Ophthalmology ExamUNC Health Blue Ridge - Valdesetart: 85-51-4602Tpvuzkdoa for malignant neoplasm of colonHUNTSMAN MENTAL HEALTH INSTITUTE HealthcareStart: 97-65-5862Bfdihc Use: DiabeticStatin Use: DiabeticProMedica Flower HospitalBLOOD CULTURE 2BLOOD CULTURE 2 Lab Routine 12/09/2024 4:21 PM [facility] Comprehensive metabolic 1999 panel - Serum or [facility] HospitalComprehensive metabolic 1999 panel - Serum or [facility] HospitalPatient referralBarney Children'S [facility] Work Phone: [facility] TransthoracicSanta Rosa Medical Center Immunizations Immunization DateImmunizationNotesCare GgokswelIuhhnjhc81-85-3677Ttcqtgqilcdf Conjugate PCV 20Lisa Aichholz FILE CONVERSION OPERATOR Work Phone: [facility] Veterans' HospitalKwwayqlume76-59-5155NCNY-KRB-3 (COVID-19) vaccine, mRNA, spike protein, LNP, bivalent, preservative free, 30 mcg/0.3 mL dose, carolyn-sucrose formulationLisa Aichholz FILE CONVERSION OPERATOR Work Phone: [facility] Veterans' HospitalYgboamlvrx40-02-7925Aexrffqem, High-dose Seasonal, Quadrivalent, Preservative FreeTaylorfrancisco Walker FILE CONVERSION OPERATOR Work Phone: [facility]' HospitalUzujfhxphi32-64-8217zukvqrlzy virus vaccine, unspecified formulationBrpeterfrancisco Walker FILE CONVERSION OPERATOR Work Phone: [facility]Hannibal [facility] Payers DatePayer CategoryPayerPolicy [id number] 2025Self-pay 2024Medicare [facility] MEDICARE Member Subscriber Plan / Payer (Effective 2023-Present) Name: Julian Montaño MMember ID: [id number] Relation to Subscriber: Self Name: Julian Montaño Payer ID: [id number] (NAIC) Group ID: [id number] Type: Not on file Address: [address] [place] [id number] 2021Medicare (Managed Care)[employer] [id number] 2016Medicare [id number] [id number] 2.840.1.198922.3.57[id number] 2.840.1.978176.3.57[id number] 2.0.1.102979.3.57[id number] 2.0.1.654508.3.57[id number] 2.0.1.070273.3.57[id number] 2.0.1.632998.3.57[id number] 2.0.1.645916.3.57[id number] 2.0.1.227889.3.57[id number] 2.0.1.673384.3.57[id number] 2..1.365110.3.57[id number] 2.0.1.956[id number] 2.840.1.664871.3.579.2.531 Social History DateTypeDetailFacilityTobacco smoking statusChillicothe Hospitaltart: 03-08-2024 End: 79-75-2734Byb Assigned At BirthFemalChildren's Hospital of Columbustart: 11-21-2023 End: 39-04-8568Pddfvfq smoking status NHISSmokes tobacco dailyNOMS Healthcare History of tobacco useCigarette SmokerNOMS HealthcareHistory of tobacco use Passive smokerNOMS HealthcareStart: 11-21-2023 End: 59-30-6514Namgjgg use and exposureSmokeless tobacco non-userNOMS Healthcare Start: 11-29-2023 End: 97-50-6592Wjuhatizr beverage intakeLifetime non-drinker (finding)[facility] HealthcareStart: 03-08-2024 End: 46-28-7606Vnegtmg of Social functionNOMS HealthcareStart: 85-55-9687Mzdeqse CommentCaffeine: 2-3 cups per dayNOMS HealthcareStart: 17-24-9841Mjn assigned at birthNot on fileNOMS HealthcareStart: 51-13-4081Ogjpxvb smoking status NHIS Unknown if ever smokedLima City Hospital CenterStart: 12-14-2024 End: 96-45-2565XtaPonwcw (finding)[facility] Medical Centertart: 68-58-0899Xke Assigned At BirthFeZanesville City Hospitaltart: 11-29-2019 End: 66-56-2912Kmahllw smoking status NHISEx-smokerChillicothe [facility] History of tobacco useCurrent smokerProRiverview Regional Medical Center Health SystemStart: 02-19-2021 Alcoholic beverage intakeCurrent non-drinker of alcohol (finding)[facility] SystemStart: 85-61-4706LaxzibcgxTqsatzzWFKI Healthcare Medical Equipment Procedure CodeEquipment CodeEquipment Original TextEquipment IdentifierDates [id number]: 11-21-2023 End: each in the morning.[id number]: 11-21-2023 End: each by In Vitro route [id number]: 01-30-2025 End: 01-30-2026 Goals DatePatient GoalDesired Activity/State Functional Status XywoVwwjrk[id number] statusPatient at Baseline [facility] Work Phone: [phone]xmig Health Questionnaire 2 item (PHQ-2) [Reported][facility] Mental Status ZuluZqipptxkiaSwurimUaakqfhf68-44-9109Hmyirabck functionCognitive Status [facility] Work Phone: Clinical Notes 09-11-2024 to 07-31-2025 Note Date & EncxVeaqMpjmkcfy88-37-2580 Evaluation note* Diagnosis Onset Date Resolution Status Admit Date Edema of both lower extremities acuteSeptember 2024 10:36amElevated TSHacuteSeptember 2024 10:36am Generalized anxiety disorderacuteSeptember 2024 10:36amIron deficiency anemia due to chronic blood lossacuteSept2024 10:36amRecurrent major depressive disorder, in full remissionacuteSept2024 10:36amEdema of both lower extremitiesacuteOctober 2024 8:52amIron deficiency anemia due to chronic blood lossacuteOctober 2024 8:52am [facility] Work Phone: 1([phone] 165-820209-17-2025 Evaluation note* Diagnosis Onset Date Resolution Status [...] with complicationacuteOctober 2024 1:01pmPrimary hypertensionacuteOctober 2024 1:01pm [facility] Work Phone: [phone] 784-668008-13-2025 History of Present illness Narrative* La Pack [...] usually avgs around 140-150s * La Ramone, FILE CONVERSION OPERATOR - 06/26/2025 10:30 AM EDT Images from [...] cholecalciferol (VITAMIN D-3) 50 mcg, Oral, Daily Mbxzxuvcbqk-Argtactzi-Ianbes (Trelegy Ellipta) 200-62.5-25 MCG/ACT aerosol powder 1 Inhalation, Inhalation, Daily Vlvtllapizf-Cnclnpazw-Dkgoik (Trelegy Ellipta) 200-62.5-25 MCG/ACT aerosol powder 1 [...] without long-term current use of insulin ([facility]) Check blood sugars daily, notify [...] dependence without complication Has not smoked since Adictiz Generalized anxiety disorder Will increase dose of [...] dependence without complication Has not smoked since Adictiz * La Pack NP - 06/26/2025 5:02 [...] Current meds: albuterol, trelegy documented in this encounterHarry S. Truman Memorial Veterans' HospitalFjrtxutzxw61-06-7733 Instructions* Patient Instructions* La Pack NP - 06/26/2025 10:30 AM EDT For your anxiety: we are going to increase sertraline to 100mg pill once a day. Also adding buspar 5mg twice a day for anxiety Add antibiotic for leg cephalexin twice for 10 days, and water pill for swelling leg lasix 20mg daily Check blood work in 10 days documented in this encounterHarry S. Truman Memorial Veterans' HospitalRaymtvcywd23-75-4893 History of Present illness Narrative* La Pack [...] compliance problems. There is no history of CAD/MD. Diabetes She presents for her follow-up diabetic [...] being taken. She does not see a pressing machine operator.Eye exam is current. Depression Visit Type: follow-up [...] breakfast, Do not crush, chew, or split. Dlvgdwwqyas-Hcvzbuown-Rgrylh (Trelegy Ellipta) 200-62.5-25 MCG/ACT aerosol powder 1 [...] complication, without long-term current use of insulin ([facility]) Check blood sugars daily, notify [...] Recurrent major depressive disorder, in full remission ([facility]) Takes sertraline daily Screening mammogram, encounter for Relevant Orders Bilateral screening mammogram COPD (chronic obstructive pulmonary disease) ([facility]) - Primary Wears oxygen at home Current meds: albuterol, trelegy Primary hypertension ([facility]) Please check blood pressure daily [...] D 25 hydroxy Acute hypoxic respiratory failure ([facility]) Wears oxygen at home Inhalers: trelegy, albuterol Cigarette nicotine dependence without complication Has not smoked since Adictiz Generalized anxiety disorder (CMS/HCC) Takes ativan prn, and sertraline Relevant Orders TSH * La Pack NP - 02/06/2025 6:32 AM EDTAssociated Problem(s): Other hyperlipidemia (CMS/[facility]) On statin therapy Check labs [...] dependence without complication Has not smoked since [facility] * La Pack NP - [...] without complication, without long-term current useof insulin ([facility]) Check blood sugars daily, notify [...] 02/06/2025 6:25 AM EDTAssociated Problem(s): Primary hypertension ([facility]) Please check blood pressure daily and record DASH diet Limit caffeine Take medication as directed Contact office if chest pain, pressure, dizziness, shortness of breath, swelling legs Recommend slow position changes Current meds: losartan * La Pakc NP - 02/06/2025 6:23 AM EDTAssociated Problem(s): COPD (chronic obstructive pulmonary disease) ([facility]) Wears oxygen at home Current meds: albuterol, trelegy documented in this encounterHarry S. Truman Memorial Veterans' HospitalIxdudaapka38-17-1946 Instructions* Patient Instructions* La Pack NP - 02/06/2025 10:00 AM EDT Get labs completed fasting 8 hours Mammogram we will fax order to [facility], if you dont hear from them in 2 weeks, call [phone] Great job on quitting smoking documented in this encounterHarry S. Truman Memorial Veterans' HospitalRlacxpsppw55-85-3320 History of Present illness Narrative* La Pack [...] of Suture / Staple Removal (head) HPI: [facility] ER on 01/14/25 for scalp [...] breakfast, Do not crush, chew, or split. Lpxblqvjncj-Gbkcsndhn-Amlhrg (Trelegy Ellipta) 200-62.5-25 MCG/ACT aerosol powder 1 [...] of the risks of continued smoking: stroke, MD, all forms of cancer, lung disease, and [...] of the risks of continued smoking: stroke, MD, all forms of cancer, lung disease, and . Options for quitting smoking include: cold turkey, hypnosis, acupuncture, nicotine replacement meds(gum, lozenges, and patches), Buproprion, and Varenicline. At this time pt is encouraged to evaluate their goals for wanting to quit smoking, and reach out toprovider when ready to start this process documented in this encounterHarry S. Truman Memorial Veterans' HospitalJiwqndlhye19-01-6710 Instructions* Patient Instructions* La Pack NP - 01/23/2025 11:30 AM EDT May wash hair, Take augmentin atb as directed, fluids, encourage cough and deep breathing If worsening breathing go to ER documented in this encounterHarry S. Truman Memorial Veterans' HospitalTbxhlqabic66-76-8088 History of Present illness Narrative* Ian Soares [...] AM ESTAssociated Problem(s): Acute hypoxic respiratory failure ([facility]/HCC) SpO2 stable and wean oxygen as tolerated. * Ian Soares MD - 01/14/2025 9:30 AM EST Images from the original note were not included. Subjective Patient ID: Julian Montaño is a 69 y.o. female who presents for Follow-up (Hospital f/u), Sore Throat, and Earache (Right ear). Follow up from hospital and SNF. Patient found unresponsive at home and intubated by EMS. Brought to [facility] then transferred to [facility]. Admitted 12/09-12/14 and treated for influenza A [...] without long-term current use of insulin (CMS/[facility]) BS controlled and monitor. Stick to ADA diet and limit carbs. COPD (chronic obstructive pulmonary disease) (CMS/[facility]) Breathing stable and continue inhalers. Use albuterol nebulized PRN. Script for new nebulizer machine to patient. Relevant Medications albuterol HFA 90 mcg/act inhaler Primary hypertension (CMS/HCC) BP controlled and monitor PRN. Acute hypoxic respiratory failure (CMS/HCC) SpO2 stable and wean oxygen as tolerated. Influenza A - Primary Recent infection but improved and monitor. documented in this encounterHarry S. Truman Memorial Veterans' HospitalStvzchhxct56-58-2113 History of Present illness Narrative* Stephen Macias, DO - 01/01/2025 1:19 PM EST Patient Name: Julian Montaño Date of : 1955 Date of Service: 01/01/2025 Facility: [facility] Type of Visit: Skilled Visit Subjective Julian [...] Exam Vitals reviewed. Exam conducted with a mine administrator supervisor present (Priyank Ward MS3). Constitutional: General: She [...] / Plan 1. Acute hypoxic respiratory failure ([facility]) 2. Aspiration pneumonia, unspecified aspiration pneumonia type, unspecified laterality, unspecifiedpart of lung ([facility]) 3. Chronic obstructive pulmonary disease, unspecified COPD type ([facility]) 4. Influenza A 5. Type 2 diabetes mellitus without complication, without long-term current use of insulin ([facility]) 6. Other abnormalities of gait [...] BY: Stephen Macias DO documented in this encounterProMedica Flower Hospital02-14-2025 History of Present illness Narrative* Stephen Macias DO - 12/28/2024 2:56 PM EST Patient Name: Julian Montaño Date of : 1955 Date of Service: 12/28/2024 Facility: [facility] Type of Visit: Skilled Visit Subjective Julian Montaño is a 69 y.o. female [facility] at [facility] facility for [facility] visit. Julian is in therapy. She is slowly improving. Staff is needing a tcde-rd-dfps visit to document her oxygen in wheelchair [...] Exam Vitals reviewed. Exam conducted with a mine administrator supervisor present (Priyank Ward MS3). Constitutional: General: She [...] BY: Stephen Macias DO documented in this encounterLouis Stokes Cleveland VA Medical CenterCambrian Genomics Up Health [id number] History of Present illness Narrative* Stephen Macias DO - 12/25/2024 11:59 PM EST Patient Name: Julian Montaño Date of : 1955 Date of Service: 12/25/2024 Facility: [facility] Type of Visit: Skilled Visit Subjective Julian [...] Exam Vitals reviewed. Exam conducted with a mine administrator supervisor present (Priyank Ward MS3). Constitutional: General: She [...] BY: Stephen Macias DO documented in this encounterProMedica Flower Hospital02-04-2025 History of Present illness Narrative* Stephen Macias DO - 12/18/2024 11:59 PM EST Patient Name: Julian Montaño Date of : 1955 Date of Service: 12/18/2024 Facility: [facility] Type of Visit: Admission H&P Subjective Julian Montaño is a 69 y.o. female [facility] at [facility] facility for admission H&Makeda [facility] hospitalization at [facility]. She was diagnosed with acute hypoxic respiratory [...] Past Medical History: Diagnosis Date Acoustic neuroma ([facility]) Anemia Asymmetric SNHL (sensorineural hearing loss) Benign neoplasm of cranial nerve ([facility]) Bilateral cataracts Chronic bronchitis ([facility]) Chronic cough Constipation COPD (chronic obstructive pulmonary disease) ([facility]) Depression Diabetes mellitus ([facility]) history of GERD (gastroesophageal reflux disease) Hemorrhoids History of brain tumor removed in 1997, came back 2018 Hyperlipidemia Hypertension Macular degeneration Osteoarthritis of hip Personal history of tobacco use Positive occult stool blood test Right acoustic neuroma ([facility]) Splenic sequestration Vitamin D deficiency [...] Exam Vitals reviewed. Exam conducted with a mine administrator supervisor present (Priyank Ward MS3). Constitutional: General: She [...] / Plan 1. Acute hypoxic respiratory failure ([facility]) 2. Chronic obstructive pulmonary disease, unspecified COPD type ([facility]) 3. Influenza A 4. Aspiration pneumonia, unspecified aspiration pneumonia type, unspecified laterality, unspecifiedpart of lung ([facility]) 5. Depression, unspecified depression type 6. Cigarette smoker 7. Type 2 diabetes mellitus without complication, without long-term current use of insulin ([facility]) 8. [facility] Finish [...] BY: Stephen Macias DO documented in this encounterLouis Stokes Cleveland VA Medical CenterGreystripe [id number] Discharge summary Author Daniel Garza [facility] Date/TimeJanuary 2024 2:47pm [address] [place] [address] Discharge Summary Signed Patient: Julian Montaño MR#: [id number] : 1955 Acct:[id number] Age/Sex: 69 / F Adm Date: 5 Loc: Room: [address] [place] [address]: Daniel Garza MD Copies to: MD Daniel Cruz, FILE CONVERSION OPERATOR-C~ Providers Date of Discharge: 12/14/24 Discharging Provider: [...] as GERD and depression. Patient came to [place] ER after she was intubated by the [...] vomiting and no other concerns as per [place] documentation. Labs at [place] showed CBC with leukocytosis and left shift, [...] no signs ofUTI. Her ABG wasdone at [place] ER showed pH of 7.16 as well as PaCO2 of 71.5. She was intubated by EMS, was given 100 mg of succinylcholine 60 mg of ketamine and then 50 mg of fentanyl and 5 mg of Versed as well as 6.4 mg of Elconin. Also they reached out to cardiology at [place] recommending again heparinization. EKG showed sinus tachycardia [...] started on bronchodilator steroid antibiotics and oseltamivir. Carton Marker Machine was consulted who recommended continuing the same. [...] troponin likely in setting of type II MD. Follow-up echo showed normal ejection fraction of [...] 38 Discharge Plan Discharge Plan [facility] Disposition[facility] Additional Instructions: [facility] to manage care: - Full code [...] with device INHALATION Follow Up: Daniel Cardoso FILE CONVERSION OPERATOR-C [Primary Care Provider] - (Follow-up with your Primary Care Provider after discharge from [facility]) Exam Physical Exam Vital Signs: Temp [...] % (Auto) 84.6, Lymph % (Auto) 7.0, Polk % (Auto) 8.2, Eos % (Auto) 0.0, Baso % (Auto) 0.2, Nucleat RBC Rel Count 0.1, Neut # (Auto) 7.2, Lymph # (Auto) 0.6 L, Polk # (Auto) 0.7, Eos # (Auto) 0.0, [...] signed by Daniel Garza MD> 12/14/24 1447 [facility] Work Phone: 1([phone]) 519-408601-31-2025 Progress note Author Daniel Garza [facility] Date/TimeJanuary 2024 1:58pm [address] [address] Hospitalist Progress Note Signed Patient: Julian Montaño MR#: [id number] : 1955 Acct:[id number] Age/Sex: 69 / F Adm Date: 5 Loc: Room: [address] [place] [address] Type: ADM IN Attending Dr: Daniel Garza MD Copies to: ~ Date of Service: 12/14/2024 Subjective Subjective Narrative: This is a 69 y.o female with past medical history of COPD, dyslipidemia, hypertension, type 2 diabetes as well as GERD and depression. Patient came to [place] ER after she was intubated by the [...] vomiting and no other concerns as per [place] documentation. Labs at [place] showed CBC with leukocytosis and left shift, [...] no signs ofUTI. Her ABG wasdone at [place] ER showed pH of 7.16 as well as PaCO2 of 71.5. She was intubated by EMS, was given 100 mg of succinylcholine 60 mg of ketamine and then 50 mg of fentanyl and 5 mg of Versed as well as 6.4 mg of Elconin. Also they reached out to cardiology at [place] recommending again heparinization. EKG showed sinus tachycardia [...] started on bronchodilator steroid antibiotics and oseltamivir. Carton Marker Machine was consulted who recommended continuing the same. [...] Ml SUBCUT 12/12/25 21:59 Not Given [facility] Protocol Oseltamivir Phosphate 30 mg 12/13/24 21:00 [...] no water. 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 Follow-up echo showednormal ejection fraction of 65 to 70% with normal wall motion -PMR was consulted who recommended discharge to prison facility. Full code Documented By: Daniel Garza MD 12/14/24 1356 Signed By: <Electronically signed by Daniel Garza MD> 12/14/24 1358 [facility] Work Phone: 1(557) 177-364401-31-2025 Progress note Author Cecilia Ruiz [facility] Date/TimeJanuary 2024 1:18pm [place] [address] Pulmonology Progress Note Signed Patient: Julian Montaño MR#: [id number] : 1955 Acct:[id number] Age/Sex: 69 / F Adm Date: 5 Loc: 4 Room: [address] [place] [address] Type: ADM IN Attending Dr: Daniel Garza [...] signed by Cecilia Ruiz MD> 12/14/24 1318 [facility] Work Phone: 1([phone]) 852-146501-31-2025 [place] [phone] Discharge Summary Signed Patient: Julian Montaño MR#: [id number] : 1955 Acct:[id number] Age/Sex: 69 / F Adm Date: 5 Loc: Room: [address] [place] [address]: Daniel Garza MD Copies to: MD Daniel Cruz, FILE CONVERSION OPERATOR-C~ Providers Date of Discharge: 12/14/24 Discharging Provider: Daniel Garza Primary Care Provider: Daniel Cadroso Consults: 12/09/24 22:31 Consult to Pulmonology Routine [...] as GERD and depression. Patient came to [place] ER after she was intubated by the [...] vomiting and no other concerns as per [place] documentation. Labs at [place] showed CBC with leukocytosis and left shift, [...] no signs ofUTI. Her ABG wasdone at [place] ER showed pH of 7.16 as well as PaCO2 of 71.5. She was intubated by EMS, was given 100 mg of succinylcholine 60 mg of ketamine and then 50 mg of fentanyl and 5 mg of Versed as well as 6.4 mg of Elconin. Also they reached out to cardiology at [place] recommending again heparinization. EKG showed sinus tachycardia [...] started on bronchodilator steroid antibiotics and oseltamivir. Carton Marker Machine was consulted who recommended continuing the same. [...] troponin likely in setting of type II MD. Follow-up echo showed normal ejection fraction of [...] 38 Discharge Plan Discharge Plan Patient Disposition: [facility] Additional Instructions: [facility] to manage care: - Full code [...] with device INHALATION Follow Up: Daniel Cardoso, FILE CONVERSION OPERATOR-C [Primary Care Provider] - (Follow-up with your Primary Care Provider after discharge from [facility]) Exam Physical Exam Vital Signs: Temp [...] % (Auto) 84.6, Lymph % (Auto) 7.0, Polk % (Auto) 8.2, Eos % (Auto) 0.0, Baso % (Auto) 0.2, Nucleat RBC Rel Count 0.1, Neut # (Auto) 7.2, Lymph # (Auto) 0.6 L, Polk # (Auto) 0.7, Eos # (Auto) 0.0, [...] MD 12/14/24 144 Signed By: 12/14/24 1447 [facility]01-31-2025 Progress notePhilip [place] [phone] Hospitalist Progress Note Signed Patient: Julian Montaño MR#: [id number] : 1955 Acct:[id number] Age/Sex: 69 / F Adm Date: 5 Loc: Room: 3H4919-5 Type: ADM IN Attending Dr: Daniel Garza MD Copies to: ~ Date of Service: 12/14/2024 Subjective Subjective Narrative: This is a 69 y.o female with past medical history of COPD, dyslipidemia, hypertension, type 2 diabetes as well as GERD and depression. Patient came to [place] ER after she was intubated by the [...] vomiting and no other concerns as per [place] documentation. Labs at [place] showed CBC with leukocytosis and left shift, [...] no signs ofUTI. Her ABG wasdone at [place] ER showed pH of 7.16 as well as PaCO2 of 71.5. She was intubated by EMS, was given 100 mg of succinylcholine 60 mg of ketamine and then 50 mg of fentanyl and 5 mg of Versed as well as 6.4 mg of Elconin. Also they reached out to cardiology at [place] recommending again heparinization. EKG showed sinus tachycardia [...] started on bronchodilator steroid antibiotics and oseltamivir. Carton Marker Machine was consulted who recommended continuing the same. [...] no water. 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 Follow-up echo showednormal ejection fraction of 65 to 70% with normal wall motion -PMR was consulted who recommended discharge to prison facility. Full code Documented By: Daniel Garza MD 12/14/24 1356 Signed By: 12/14/24 1358 [facility]01-31-2025 Progress notePhilip [place] [phone] Pulmonology Progress Note Signed Patient: Julian Montaño MR#: [id number] : 1955 Acct:[id number] Age/Sex: 69 / F Adm Date: 5 Loc: Room: [address] [place] [address] Type: ADM IN Attending Dr: Daniel Garza [...] Ruiz MD 12/14/241316 Signed By: 12/14/24 1318 [facility]01-30-2025 Progress note Author Cecilia Ruiz [facility] Date/TimeJanuary 2024 1:53pm [place] [address] Pulmonology Progress Note Signed Patient: Julian Montaño MR#: [id number] : 1955 Acct:[id number] Age/Sex: 69 / F Adm Date: 5 Loc: Room: [address] [place] [address] Type: ADM IN Attending Dr: Daniel Garza [...] signed by Cecilia Ruiz MD> 12/13/24 1353 [facility] Work Phone: 1([phone]) 168-699701-30-2025 Progress note Author Daniel Garza [facility] Date/TimeJanuary 2024 1:41pm [place] [address] Hospitalist Progress Note Signed Patient: Julian Montaño MR#: [id number] : 1955 Acct:[id number] Age/Sex: 69 / F Adm Date: 5 Loc: 4 Room: [address] [place] [address] Type: ADM IN Attending Dr: Daniel Garza MD Copies to: ~ Date of Service: 12/13/2024 Subjective Subjective Narrative: This is a 69 y.o female with past medical history of COPD, dyslipidemia, hypertension, type 2 diabetes as well as GERD and depression. Patient came to [place] ER after she was intubated by the [...] vomiting and no other concerns as per [place] documentation. Labs at [place] showed CBC with leukocytosis and left shift, [...] no signs ofUTI. Her ABG wasdone at [place] ER showed pH of 7.16 as well as PaCO2 of 71.5. She was intubated by EMS, was given 100 mg of succinylcholine 60 mg of ketamine and then 50 mg of fentanyl and 5 mg of Versed as well as 6.4 mg of Elconin. Also they reached out to cardiology at [place] recommending again heparinization. EKG showed sinus tachycardia [...] started on bronchodilator steroid antibiotics and oseltamivir. Carton Marker Machine was consulted who recommended continuing the same. [...] no water. 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 Follow-up echo showednormal ejection fraction of 65 to 70% with normal wall motion -PMR was consulted who [facility] to [facility] facility. Full code Documented By: Daniel Garza MD 12/13/24 1337 Signed By: <Electronically signed by Daniel Garza MD> 12/13/24 1341 [facility] Work Phone: 1(554) 836-458801-30-2025 Consult note Author Dave Bazan [facility] Date/TimeJanuary 2024 1:29pm [place] [address] Physiatry (Rehab) Consult Note Signed Patient: Julian Montaño MR#: [id number] : 1955 Acct:[id number] Age/Sex: 69 / F Adm Date: 5 Loc: Room: [address] [place] [address] Type: ADM IN Attending Dr: Daniel Garza MD Copies to: MD Daniel Cruz NP-C Christian D Siebenaler, MD~ HPI Consult Date: 12/13/24 Requesting Physician: Daniel Garza MD Primary Care Provider: SILVER Francois Consult Narrative HPI: Ms. Montaño is a 69 year old female with PMH COPD, dyslipidemia, hypertension, type2 diabetes as well as GERD and depression. The patient was transferred [facility] from [place] after being found unresponsive and being intubated [...] negative unless noted below or in HPI [facility] Medical History Depressed Acute hypoxic respiratory [...] 62.5 mcg-vilant 25 mcg inhalat.powder (Trelegy Ellipta) iuwunuexuq22/27/25 [History] losartan 50 mg tablet mg 12/10/24 [...] % (Auto) 87.0 Lymph % (Auto) 6.4 Polk % (Auto) 6.5 Eos % (Auto) 0.0 Baso % (Auto) 0.1 Nucleat RBC Rel Count 0.1 Neut # (Auto) 9.3 H Lymph # (Auto) 0.7 L Polk # (Auto) 0.7 Eos # (Auto) 0.0 [...] MPV Neut % (Auto) Lymph % (Auto) Polk % (Auto) Eos % (Auto) Baso % (Auto) Nucleat RBC Rel Count Neut # (Auto) Lymph # (Auto) Polk # (Auto) Eos # (Auto) Baso # [...] chart, including current orders, allied health and it infrastructure consultant notes, labs/imaging and performed barrow elements of exam and I formulated the plan of care and facilitated the medical decision making. I completed a substantive portion of this encounter, the medical decision making portion of this note in its entirety, including Allied health note review, nursing note review, it infrastructure consultant note review, discussion with nursing and case management, and more than 50% of my time was spent on counseling and coordination of care, time spent 45 minutes Documented By: Dave Bazan MD 1253 Signed By: <Electronically signed by Dave Bazan MD> 12/13/24 1321 [facility] Work Phone: 1(595) 377-849301-30-[address] [address] Pulmonology Progress Note Signed Patient: Julian Montaño MR#: [id number] : 1955 Acct:[id number] Age/Sex: 69 / F Adm Date: 5 Loc: 4P Room: [address] [place] [address] Type: ADM IN Attending Dr: Daniel Garza [...] MD 12/13/24 1351 Signed By: 12/13/24 1353 [facility]-30-2025 [place] [id number] Hospitalist Progress Note Signed Patient: Julian Montaño MR#: [id number] : 1955 Acct:[id number] Age/Sex: 69 / F Adm Date: 5 Loc: Room: [address] [place] [address] Type: ADM IN Attending Dr: Daniel Garza MD Copies to: ~ Date of Service: 12/13/2024 Subjective Subjective Narrative: This is a 69 y.o female with past medical history of COPD, dyslipidemia, hypertension, type 2 diabetes as well as GERD and depression. Patient came to [place] ER after she was intubated by the [...] vomiting and no other concerns as per [place] documentation. Labs at [place] showed CBC with leukocytosis and left shift, [...] no signs ofUTI. Her ABG wasdone at [place] ER showed pH of 7.16 as well as PaCO2 of 71.5. She was intubated by EMS, was given 100 mg of succinylcholine 60 mg of ketamine and then 50 mg of fentanyl and 5 mg of Versed as well as 6.4 mg of Elconin. Also they reached out to cardiology at [place] recommending again heparinization. EKG showed sinus tachycardia [...] started on bronchodilator steroid antibiotics and oseltamivir. [employer] was consulted who recommended continuing the same. [...] Ml SUBCUT 12/12/25 21:59 Not Given [facility] Protocol Oseltamivir Phosphate 30 mg 12/13/24 21:00 Oseltamivir Phosphate 30 Mg Capsule PO 12/14/24 21:01 BID LASR Pantoprazole Sodium 40 mg 12/10/24 09:00 12/13/24 [...] no water. 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 Follow-up echo showednormal ejection fraction of 65 to 70% with normal wall motion -PMR was consulted who recommended discharge to prison facility. Full code Documented By: Daniel Garza MD 12/13/24 1337 Signed By: 12/13/24 1341 [facility]-30-2025 [place] [address] Physiatry (Rehab) Consult Note Signed Patient: Julian Montaño MR#: [id number] : 1955 Acct:[id number] Age/Sex: 69 / F Adm Date: 5 Loc: Room: [address] [place] [address] Type: ADM IN Attending Dr: Daniel Garza MD Copies to: Daniel Kayla, MD DanielSILVER Zamarripa MD~ HPI Consult Date: 12/13/24 Requesting Physician: Daniel Garza MD Primary Care Provider: SILVER Francois Consult Narrative HPI: Ms. Montaño is a 69 year old female with PMH COPD, dyslipidemia, hypertension, type2 diabetes as well as GERD and depression. The patient was transferred t[facility] from [place] after being found unresponsive and being intubated [...] negative unless noted below or in HPI [facility] Medical History Depressed Acute hypoxic respiratory [...] 62.5 mcg-vilant 25 mcg inhalat.powder (Trelegy Ellipta) [id number]/27/25 [History] losartan 50 mg tablet mg 12/10/24 [...] % (Auto) 87.0 Lymph % (Auto) 6.4 Polk % (Auto) 6.5 Eos % (Auto) 0.0 Baso % (Auto) 0.1 Nucleat RBC Rel Count 0.1 Neut # (Auto) 9.3 H Lymph # (Auto) 0.7 L Polk # (Auto) 0.7 Eos # (Auto) 0.0 [...] MPV Neut % (Auto) Lymph % (Auto) Polk % (Auto) Eos % (Auto) Baso % (Auto) Nucleat RBC Rel Count Neut # (Auto) Lymph # (Auto) Polk # (Auto) Eos # (Auto) Baso # [...] chart, including current orders, allied health and it infrastructure consultant notes, labs/imaging and performed barrow elements of exam and I formulated the plan of care and facilitated the medical decision making. I completed a substantive portion of this encounter, the medical decision making portion of this note in its entirety, including Allied health note review, nursing note review, it infrastructure consultant note review, discussion with nursing and case management, and more than 50% of my time was spent on counseling and coordination of care, time spent 45 minutes Documented By: Dave Bazan MD 1259 Signed By: 12/13/24 1329 [facility]-29-2025 Progress note Author Daniel Garza [facility] Date/TimeJanuary 2024 2:45pm [address] [address] Hospitalist Progress Note Signed Patient: Julian Montaño MR#: [id number] : 1955 Acct:[id number] Age/Sex: 69 / F Adm Date: 5 Loc: Room: [address] [place] [address] Type: ADM IN Attending Dr: Daniel Garza MD Copies to: ~ Date of Service: 12/12/2024 Subjective Subjective Narrative: This is a 69 y.o female with past medical history of COPD, dyslipidemia, hypertension, type 2 diabetes as well as GERD and depression. Patient came to [place] ER after she was intubated by the [...] vomiting and no other concerns as per [place] documentation. Labs at [place] showed CBC with leukocytosis and left shift, [...] no signs ofUTI. Her ABG wasdone at [place] ER showed pH of 7.16 as well as PaCO2 of 71.5. She was intubated by EMS, was given 100 mg of succinylcholine 60 mg of ketamine and then 50 mg of fentanyl and 5 mg of Versed as well as 6.4 mg of Elconin. Also they reached out to cardiology at [place] recommending again heparinization. EKG showed sinus tachycardia [...] started on bronchodilator steroid antibiotics and oseltamivir. [employer] was consulted who recommended continuing the same. [...] no water. Elevated troponin likely type 2 MD -Okay to be transferred out of ICU. [...] <Electronically signed by Daniel Garza MD> 12/12/24 1442 [facility] Work Phone: 1(449) 509-243901-29-2025 [place] [address] Hospitalist Progress Note Signed Patient: Julian Montaño MR#: [id number] : 1955 Acct:[id number] Age/Sex: 69 / F Adm Date: 5 Loc: Room: [address] [place] [address] Type: ADM IN Attending Dr: Daniel Garza MD Copies to: ~ Date of Service: 12/12/2024 Subjective Subjective Narrative: This is a 69 y.o female with past medical history of COPD, dyslipidemia, hypertension, type 2 diabetes as well as GERD and depression. Patient came to [place] ER after she was intubated by the [...] vomiting and no other concerns as per [place] documentation. Labs at [place] showed CBC with leukocytosis and left shift, [...] no signs ofUTI. Her ABG wasdone at [place] ER showed pH of 7.16 as well as PaCO2 of 71.5. She was intubated by EMS, was given 100 mg of succinylcholine 60 mg of ketamine and then 50 mg of fentanyl and 5 mg of Versed as well as 6.4 mg of Elconin. Also they reached out to cardiology at [place] recommending again heparinization. EKG showed sinus tachycardia [...] started on bronchodilator steroid antibiotics and oseltamivir. [employer] was consulted who recommended continuing the same. [...] no water. Elevated troponin likely type 2 MD -Okay to be transferred out of ICU. -Continue on steroids, bronchodilator, oseltamivir and antibiotics -ICU consult-appreciate recommendation -As per her daughter, pt does not drink alcohol or use drugs, She is a very active smoker -HSQ for DVT prophylaxis -Pantoprazole IV 40 mg daily for GI prophylaxis -Full code -consulted cardio Documented By: Daniel Garza MD 12/12/241442 Signed By: 12/12/24 1445 [facility]-29-2025 Progress note Author Cecilia Ruiz [facility] Date/TimeJanuary 2024 11:35am [place] [address] Pulmonology Progress Note Signed Patient: Julian Montaño MR#: [id number] : 1955 Acct:[id number] Age/Sex: 69 / F Adm Date: 5 Loc: Room: [address] [place] [address] Type: ADM IN Attending Dr: Daniel Garza [...] signed by Cecilia Ruiz MD> 12/12/24 1135 [facility] Work Phone: 1(564) 121-924401-29-2025 [place] 0687170 Pulmonology Progress Note Signed Patient: Julian Montaño MR#: [id number] : 1955 Acct:[id number] Age/Sex: 69 / F Adm Date: 5 Loc: Room: [address] [place] [address] Type: ADM IN Attending Dr: Daniel Garza [...] Ruiz MD 12/12/241132 Signed By: 12/12/24 1135 [facility]-28-2025 Progress note Author Cecilia Ruiz [facility] Date/TimeJanuary 2024 2:49pm [place] [address] Pulmonology Progress Note Signed Patient: Julian Montaño MR#: [id number] : 1955 Acct:[id number] Age/Sex: 69 / F Adm Date: 5 Loc: Room: [address] [place] [address] Type: ADM IN Attending Dr: Daniel Garza [...] 1446 Signed By: <Electronically signed by Cecilia Ruzi MD> 12/11/24 1449 [facility] Work Phone: 1(653) 247-556301-28-2025 Progress note Author Daniel Garza [facility] Date/TimeJanuary 2024 2:43pm [place] [address] Hospitalist Progress Note Signed Patient: Julian Montaño MR#: [id number] : 1955 Acct:[id number] Age/Sex: 69 / F Adm Date: 5 Loc: Room: 2H5377-0 Type: ADM IN Attending Dr: Daniel Garza MD Copies to: ~ Date of Service: 12/11/2024 Subjective Subjective Narrative: This is a 69 y.o female with past medical history of COPD, dyslipidemia, hypertension, type 2 diabetes as well as GERD and depression. Patient came to [place] ER after she was intubated by the [...] vomiting and no other concerns as per [place] documentation. Labs at [place] showed CBC with leukocytosis and left shift, [...] no signs ofUTI. Her ABG wasdone at [place] ER showed pH of 7.16 as well as PaCO2 of 71.5. She was intubated by EMS, was given 100 mg of succinylcholine 60 mg of ketamine and then 50 mg of fentanyl and 5 mg of Versed as well as 6.4 mg of Elconin. Also they reached out to cardiology at [place] recommending again heparinization. EKG showed sinus tachycardia [...] started on bronchodilator steroid antibiotics and oseltamivir. [employer] was consulted who recommended continuing the same. [...] no water. Elevated troponin likely type 2 MD -Continue to admit in ICU -Continue on [...] signed by Daniel Garza MD> 12/11/24 1443 [facility] Work Phone: 1(849) 284-350601-28-2025 [place] [address] Pulmonology Progress Note Signed Patient: Julian Montaño MR#: [id number] : 1955 Acct:[id number] Age/Sex: 69 / F Adm Date: 5 Loc: Room: [address] [place] [address] Type: ADM IN Attending Dr: Daniel Garza [...] Ruiz MD 12/11/241445 Signed By: 12/11/24 1449 [facility]-28-2025 [place] [address] Hospitalist Progress Note Signed Patient: Julian Montaño MR#: [id number] : 1955 Acct:[id number] Age/Sex: 69 / F Adm Date: 5 Loc: Room: [address] [place] [address] Type: ADM IN Attending Dr: Daniel Garza MD Copies to: ~ Date of Service: 12/11/2024 Subjective Subjective Narrative: This is a 69 y.o female with past medical history of COPD, dyslipidemia, hypertension, type 2 diabetes as well as GERD and depression. Patient came to [place] ER after she was intubated by the [...] vomiting and no other concerns as per [place] documentation. Labs at [place] showed CBC with leukocytosis and left shift, [...] no signs ofUTI. Her ABG wasdone at [place] ER showed pH of 7.16 as well as PaCO2 of 71.5. She was intubated by EMS, was given 100 mg of succinylcholine 60 mg of ketamine and then 50 mg of fentanyl and 5 mg of Versed as well as 6.4 mg of Elconin. Also they reached out to cardiology at [place] recommending again heparinization. EKG showed sinus tachycardia [...] started on bronchodilator steroid antibiotics and oseltamivir. [employer] was consulted who recommended continuing the same. [...] no water. Elevated troponin likely type 2 MD -Continue to admit in ICU -Continue on [...] MD 12/11/24 143 Signed By: 12/11/24 1443 [facility]-28-[facility]25 Consult note Author Krissy Cortez [facility] Date/TimeJanuary 2024 10:30pm [address] [address] Cardiology Consult Note Signed Patient: Julian Montaño MR#: [id number] : 1955 Acct:[id number] Age/Sex: 69 / F Adm Date: 5 Loc: Room: [address] [place] [address] Type: ADM IN Attending Dr: Daniel Garza MD Copies to: MD Daniel Cruz, FILE CONVERSION OPERATOR-C Suman Butler DO,RES Krissy Cortez MD~ Cardiology [...] who was transferred to our facility from [place] lastnight. Per prior documentation, the patient arrived to [place] ER after being intubated by EMS. She was reportedly found unresponsive by her boyfriend (unknown downtime) and was not responding. Additionally, prior documentation reveals that family was noting the patient complaining of shortness ofbreath for 2 days prior to arrival in the emergency department. [place] labs revealed a leukocytosis, hemoglobin of 10.6, [...] of Systems Unobtainable due to endotracheal tube [facility] Medical History (Updated 12/10/24 @ 15:52 [...] 62.5 mcg-vilant 25 mcg inhalat.powder (Trelegy Ellipta) cfhyjboodm98/27/25 [History] losartan 50 mg tablet mg 12/10/24 [...] H Lymph # (Auto) N/A 0.2 L Polk # (Auto) N/A 0.5 Eos # (Auto) [...] recheck about 9 hours later -EKG from [place] reviewed and shows sinus tachycardia with right bundle branch block without evidence of ischemic changes -I believe the elevated troponins indicative of a type II MD and have low suspicion for type I MD, however will obtain echocardiogram for further evaluation [...] agree with the resident's note. Type II MD in the setting of acute hypoxic respiratory failure. ECHO shows normal LVEF 65-70% with normal wall motion. Can consider stress MPI as outpatient once recovered from acute resp issues. Cardiology will see again as needed. = Documented By: Krissy Cortez MD 12/10/24 102 Signed By: <Electronically signed by Krissy Cortez MD> 12/10/242229 <Electronically signed by DO DEVEN Butler> 12/10/24 1551 [facility] Work Phone: 1(878) 909-350301-27-2025 Consult [place] [id number] Cardiology Consult Note Signed Patient: Julian Montaño MR#: [id number] : 1955 Acct:[id number] Age/Sex: 69 / F Adm Date: 5 Loc: 4C Room: 7B1923-4 Type: ADM IN Attending Dr: Daniel Garza [...] who was transferred to our facility from [place] lastnight. Per prior documentation, the patient arrived to [place] ER after being intubated by EMS. She was reportedly found unresponsive by her boyfriend (unknown downtime) and was not responding. Additionally, prior documentation reveals that family was noting the patient complaining of shortness ofbreath for 2 days prior to arrival in the emergency department. [place] labs revealed a leukocytosis, hemoglobin of 10.6, [...] 62.5 mcg-vilant 25 mcg inhalat.powder (Trelegy Ellipta) cttvibvmyi94/27/25 [History] losartan 50 mg tablet mg 12/10/24 [...] H Lymph # (Auto) N/A 0.2 L Polk # (Auto) N/A 0.5 Eos # (Auto) [...] recheck about 9 hours later -EKG from [place] reviewed and shows sinus tachycardia with right bundle branch block without evidence of ischemic changes -I believe the elevated troponins indicative of a type II MD and have low suspicion for type I MD, however will obtain echocardiogram for further evaluation [...] agree with the resident's note. Type II MD in the setting of acute hypoxic respiratory failure. ECHO shows normal LVEF 65-70% with normal wall motion. Can consider stress MPI as outpatient once recovered from acute resp issues. Cardiology will see again as needed. = Documented By: Krissy Cortez MD 12/10/24 1020 Signed By: 12/10/24 2230 12/10/24 1554 [facility]-27-2025 Progress note Author Daniel Garza [facility] Date/TimeJanuary 2024 8:26pm [place] [address] Hospitalist Progress Note Signed Patient: Julian Montaño MR#: [id number] : 1955 Acct:[id number] Age/Sex: 69 / F Adm Date: 5 Loc: Room: [address] [place] [address] Type: ADM IN Attending Dr: Daniel Garza MD Copies to: ~ Date of Service: 12/10/2024 Subjective Subjective Narrative: This is a 69 y.o female that appears from the medication reconciliation [place], patient appears to have past medical history of COPD, dyslipidemia, hypertension, type 2 diabetes as well as GERD anddepression. Patient came to [place] ER after she was intubated by the [...] vomiting and no other concerns as per [place] documentation. Labs at [place] showed CBC with leukocytosis and left shift, [...] no signs ofUTI. Her ABG wasdone at [place] ER showed pH of 7.16 as well as PaCO2 of 71.5. She was intubated by EMS, was given 100 mg of succinylcholine 60 mg of ketamine and then 50 mg of fentanyl and 5 mg of Versed as well as 6.4 mg of Elconin. Also they reached out to cardiology at [place] recommending again heparinization. EKG showed sinus tachycardia [...] no water. Elevated troponin likely type 2 MD -Continue to admit in ICU -Continue on [...] elevated troponin in setting of type II MD. Plan to obtain echo Documented By: Daniel Garza MD 12/10/242020 Signed By: <Electronically signed by Daniel Garza MD> 12/10/242025 [facility] Work Phone: 1(139) 538-953901-27-2025 [place] [address] Hospitalist Progress Note Signed Patient: Julian Montaño MR#: [id number] : 1955 Acct:[id number] Age/Sex: 69 / F Adm Date: 5 Loc: Room: [address] [place] [address] Type: ADM IN Attending Dr: Daniel Garza MD Copies to: ~ Date of Service: 12/10/2024 Subjective Subjective Narrative: This is a 69 y.o female that appears from the medication reconciliation [place], patient appears to have past medical history of COPD, dyslipidemia, hypertension, type 2 diabetes as well as GERD anddepression. Patient came to [place] ER after she was intubated by the [...] vomiting and no other concerns as per [place] documentation. Labs at [place] showed CBC with leukocytosis and left shift, [...] no signs ofUTI. Her ABG wasdone at [place] ER showed pH of 7.16 as well as PaCO2 of 71.5. She was intubated by EMS, was given 100 mg of succinylcholine 60 mg of ketamine and then 50 mg of fentanyl and 5 mg of Versed as well as 6.4 mg of Elconin. Also they reached out to cardiology at [place] recommending again heparinization. EKG showed sinus tachycardia [...] no water. Elevated troponin likely type 2 MD -Continue to admit in ICU -Continue on [...] elevated troponin in setting of type II MD. Plan to obtain echo Documented By: Daniel Garza MD 12/10/242020 Signed By: 12/10/242025 [facility]-27-[facility]25 Consult note Author Cecilia Ruiz [facility] Date/TimeJanuary 2024 4:32pm [place] [address] Pulmonology Consult Note Signed Patient: Julian Montaño MR#: [id number] : 1955 Acct:[id number] Age/Sex: 69 / F Adm Date: 5 Loc: Room: [address] [place] [address] Type: ADM IN Attending Dr: Daniel Garza [...] well as GERD and depression, presented to [facility] after she was found unresponsive by [...] of Systems Unobtainable due to endotracheal tube [facility] Medical History (Updated 12/10/24 @ 15:52 [...] nondistended. Extremities: No edema. 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 [...] signed by Cecilia Ruiz MD> 12/10/24 1632 [facility] Work Phone: 1([phone]) 195-371501-27-[address] [address] Pulmonology Consult Note Signed Patient: Julian Montaño MR#: [id number] : 1955 Acct:[id number] Age/Sex: 69 / F Adm Date: 5 Loc: 4C Room: 3N7352-5 Type: ADM IN Attending Dr: Daniel Garza MD Copies to: MD Cecilia Curz MD Brittany N Fitzpatrick, NP-C~ HPI Date/Time [...] well as GERD and depression, presented to [facility] after she was found unresponsive by [...] nondistended. Extremities: No edema. 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 [...] Ruiz MD 12/10/241624 Signed By: 12/10/24 1632 [facility]-26-2025 Evaluation note* Diagnosis Onset Date Resolution Status Admit Date Acute hypoxic respiratory failure acuteJanuary 2024 9:05pmAspiration pneumoniaacuteJanuary 2024 9:05pm COPD exacerbationacuteJanuary 2024 9:05pmDepressionacuteJanuary 2024 9:05pmDiabetes type 2acuteJanuary 2024 9:05pmDyslipidemiaacuteJanuary 2024 9:05pmElevated troponinacuteJanuary 2024 9:05pmHTN (hypertension)acuteJanuary 2024 9:05pmHypotensionacuteJanuary 2024 9:05pmImpaired mobility and activities of daily livingacuteJanuary 2024 9:05pmInfluenza AacuteJanuary 2024 9:05pmTobacco abuseacuteJanuary 2024 9:05pm [facility] Work Phone: 1(556) 482-591001-26-2025 Evaluation note* Diagnosis Onset Date Resolution Status Admit Date Acute hypoxic respiratory failure acuteJanuary 2024 9:05pmCOPD exacerbationacuteJanuary 2024 9:05pm DepressionacuteJanuary 2024 9:05pmDiabetes type 2acuteJanuary 2024 9:05pmDyslipidemiaacuteJanuary 2024 9:05pmElevated troponinacuteJanuary 2024 9:05pmHTN (hypertension)acuteNovuary 2024 9:05pmImpaired mobility and activities of daily livingacuteNovuary 2024 9:05pmInfluenza A acuteJanuary 2024 9:05pmTobacco abuseacuteJanuary 2024 9:05pm Aspiration pneumoniaresolvedNovuary 2024 9:05pmHypotensionresolvedJanuary 2024 9:05pm [facility] Work Phone: 1(445) 754-421011-07-2024 History of Present illness Narrative* Daniel Cardoso, GREG - 09/20/2024 10:53 AM ESTAssociated Problem(s): Type 2 diabetes mellitus without complication, without long-term current useof insulin ([facility] [facility] Currently taking Metformin 500mg Most [...] >11.0 HIGH RISK Resulting Agency [facility] DMII: Most recent labs: hemoglobin A1C 6.0% [...] List Items Addressed This Visit Other hyperlipidemia ([facility]) Currently taking Atorvastatin 40mg Denies any myalgias. Continue current regimen. Type 2 diabetes mellitus without complication, without long-term current use of insulin ([facility]) Currently taking Metformin 500mg Most [...] Asthma with COPD (chronic obstructive pulmonary disease) ([facility]) Currently taking Trelegy Daily and Albuterol PRN No exacerbations recently Reports using rescue inhaler 3 times per month. Continue current regimen Primary hypertension ([facility]) - Primary Currently taking Losartan-hydrochlorothiazide [...] (Augmentin) 875-125 MG tablet documented [facility] [id number] Instructions* Patient Instructions* Daniel Cardoso NP - [...] a refill on her mobic, ANETTE:06/21/2024 NOV:09/20/2024 [facility] [id number] Miscellaneous Notes* Telephone Encounter - Sabina Black MA - 09/11/2024 3:30 PM EDT Pt requesting a refill on her mobic, ANETTE:06/21/2024 NOV:09/20/2024 [facility] No data available for this section [facility] Diagnosis Iron deficiency anemia due to chronic blood loss- Primary Iron deficiency anemia secondary to blood loss (chronic) Current smoker Other hyperlipidemia (CMS/HCC) Moderate persistent asthma without complication ([facility]/HCC) Type 2 diabetes mellitus without complication, without long-term current use of insulin ([facility]/HCC) Screening mammogram, encounter for Recurrent major depressive disorder, in full remission ([facility]) Asthma with COPD (chronic obstructive pulmonary disease) ([facility])- Primary Iron deficiency anemia due [...] Asthma with COPD (chronic obstructive pulmonary disease) ([facility]/HCC) documented in this encounter [facility] Healthcare[facility]* Diagnosis Iron deficiency anemia due to chronic blood loss- Primary Iron deficiency anemia secondary to blood loss (chronic) Current smoker Other hyperlipidemia (CMS/HCC) Moderate persistent asthma without complication ([facility]) Type 2 diabetes mellitus without complication, without long-term current use of insulin ([facility]) Screening mammogram, encounter for Recurrent major depressive disorder, in full remission ([facility]) Asthma with COPD (chronic obstructive pulmonary disease) ([facility]/HCC)- Primary Iron deficiency anemia due to chronic blood loss Iron deficiency anemia secondary to blood loss (chronic) Type 2 diabetes mellitus without complication, without long-term current use of insulin ([facility]/HCC) Primary hypertension (CMS/HCC) Unspecified essential hypertension Asthma with COPD (chronic obstructive pulmonary disease) ([facility]/HCC)- Primary Primary hypertension ([facility]/HCC) Unspecified essential hypertension Type 2 diabetes mellitus without complication, without long-term current use of insulin (CMS/HCC) Primary hypertension (CMS/HCC)- Primary Unspecified essential hypertension Asthma with COPD (chronic obstructive pulmonary disease) ([facility]/HCC) Iron deficiency anemia due to chronic blood loss Iron deficiency anemia secondary to blood loss (chronic) Other hyperlipidemia (CMS/HCC) Type 2 diabetes mellitus without complication, without long-term current use of insulin ([facility]/HCC) Vitamin D deficiency Dermoid cyst of right ear Tobacco dependency Tobacco use disorder Type 2 diabetes mellitus without complications ([facility]/HCC) documented in this encounter [facility] HealthcareEvaluation note* Diagnosis Iron deficiency anemia due to chronic blood loss- Primary Iron deficiency anemia secondary to blood loss (chronic) Current smoker Other hyperlipidemia (CMS/HCC) Moderate persistent asthma without complication (CMS/HCC) Type 2 diabetes mellitus without complication, without long-term current use of insulin ([facility]) Screening mammogram, encounter for Recurrent major depressive disorder, in full remission ([facility]/HCC) Asthma with COPD (chronic obstructive pulmonary disease) ([facility]/HCC)- Primary Iron deficiency anemia due to chronic blood loss Iron deficiency anemia secondary to blood loss (chronic) Type 2 diabetes mellitus without complication, without long-term current use of insulin (CMS/HCC) Primary hypertension (CMS/HCC) Unspecified essential hypertension Asthma with COPD (chronic obstructive pulmonary disease) ([facility])- Primary Primary hypertension ([facility]/HCC) Unspecified essential hypertension Type 2 diabetes mellitus without complication, without long-term current use of insulin ([facility]/HCC[facility] Primary hypertension ([facility]/HCC)- Primary Unspecified essential hypertension Asthma with COPD (chronic obstructive pulmonary disease) ([facility]) Iron deficiency anemia due to chronic blood loss Iron deficiency anemia secondary to blood loss (chronic) Other hyperlipidemia (CMS/HCC) Type 2 diabetes mellitus without complication, without long-term current use of insulin ([facility]) Vitamin D deficiency Dermoid cyst of right ear Tobacco dependency Tobacco use disorder Hyperlipidemia, unspecified ([facility]) documented in this encounter [facility] HealthcareEvaluation note* Diagnosis Iron deficiency anemia due to chronic blood loss- Primary Iron deficiency anemia secondary to blood loss (chronic) Current smoker Other hyperlipidemia (CMS/HCC) Moderate persistent asthma without complication ([facility]/HCC) Type 2 diabetes mellitus without complication, without long-term current use of insulin ([facility]) Screening mammogram, encounter for Recurrent major depressive disorder, in full remission ([facility]) Asthma with COPD (chronic obstructive pulmonary disease) ([facility])- Primary Iron deficiency anemia due to chronic blood loss Iron deficiency anemia secondary to blood loss (chronic) Type 2 diabetes mellitus without complication, without long-term current use of insulin ([facility]/HCC) Primary hypertension ([facility]/HCC) Unspecified essential hypertension Asthma with COPD (chronic obstructive pulmonary disease) ([facility]/HCC)- Primary Primary hypertension ([facility]/HCC) Unspecified essential hypertension Type 2 diabetes mellitus without complication, without long-term current use of insulin ([facility]/HCC) Primary hypertension ([facility]/HCC)- Primary Unspecified essential hypertension Asthma with COPD (chronic obstructive pulmonary disease) (CMS/HCC) Iron deficiency anemia due to chronic blood loss Iron deficiency anemia secondary to blood loss (chronic) Other hyperlipidemia (CMS/HCC) Type 2 diabetes mellitus without complication, without long-term current use of insulin ([facility]) Vitamin D deficiency Dermoid cyst of right ear Tobacco dependency Tobacco use disorder Other bursitis of elbow, left elbow documented in this encounter [facility] HealthcareEvaluation note* Diagnosis Iron deficiency anemia due to chronic blood loss- Primary Iron deficiency anemia secondary to blood loss (chronic) Current smoker Other hyperlipidemia (CMS/HCC) Moderate persistent asthma without complication ([facility]/HCC) Type 2 diabetes mellitus without complication, without long-term current use of insulin ([facility]) Screening mammogram, encounter for Recurrent major depressive disorder, in full remission ([facility]) Asthma with COPD (chronic obstructive pulmonary disease) ([facility])- Primary Iron deficiency anemia due to chronic blood loss Iron deficiency anemia secondary to blood loss (chronic) Type 2 diabetes mellitus without complication, without long-term current use of insulin ([facility]) Primary hypertension ([facility]) Unspecified essential hypertension Asthma with COPD (chronic obstructive pulmonary disease) ([facility]/HCC)- Primary Primary hypertension ([facility]) Unspecified essential hypertension Type 2 diabetes mellitus without complication, without long-term current use of insulin ([facility]/HCC) Primary hypertension ([facility]CC)- Primary Unspecified essential hypertension Asthma with COPD (chronic obstructive pulmonary disease) ([facility]/HCC) Iron deficiency anemia due to chronic blood loss Iron deficiency anemia secondary to blood loss (chronic) Other hyperlipidemia ([facility]/HCC) Type 2 diabetes mellitus without complication, without long-term current use of insulin ([facility]) Vitamin D deficiency Dermoid cyst of right ear Tobacco dependency Tobacco use disorder Primary hypertension ([facility]/HCC)- Primary Unspecified essential hypertension Type 2 diabetes mellitus without complication, without long-term current use of insulin ([facility]/HCC) Other hyperlipidemia ([facility]/HCC) Asthma with COPD (chronic obstructive pulmonary disease) ([facility]) Non-recurrent acute serous otitis media of left ear documented in this encounter [facility] HealthcareEvaluation note* Diagnosis Other bursitis of elbow, left elbow documented in this encounter [facility] HealthcareEvaluation note* Diagnosis Iron deficiency anemia due to chronic blood loss- Primary Iron deficiency anemia secondary to blood loss (chronic) Current smoker Other hyperlipidemia (CMS/HCC) Moderate persistent asthma without complication ([facility]/HCC) Type 2 diabetes mellitus without complication, without long-term current use of insulin ([facility]) Screening mammogram, encounter for Recurrent major depressive disorder, in full remission ([facility]) Asthma with COPD (chronic obstructive pulmonary disease) ([facility]/HCC)- Primary Iron deficiency anemia due to chronic blood loss Iron deficiency anemia secondary to blood loss (chronic) Type 2 diabetes mellitus without complication, without long-term current use of insulin ([facility]/HCC) Primary hypertension ([facility]/HCC) Unspecified essential hypertension Asthma with COPD (chronic obstructive pulmonary disease) ([facility]/HCC)- Primary Primary hypertension ([facility]/HCC) Unspecified essential hypertension Type 2 diabetes mellitus without complication, without long-term current use of insulin ([facility]/HCC) Primary hypertension ([facility]/HCC)- Primary Unspecified essential hypertension Asthma with COPD (chronic obstructive pulmonary disease) ([facility]) Iron deficiency anemia due to chronic blood loss Iron deficiency anemia secondary to blood loss (chronic) Other hyperlipidemia ([facility]) Type 2 diabetes mellitus without complication, without long-term current use of insulin ([facility]) Vitamin D deficiency Dermoid cyst of right ear Tobacco dependency Tobacco use disorder Primary hypertension ([facility])- Primary Unspecified essential hypertension Type 2 diabetes mellitus without complication, without long-term current use of insulin ([facility]) Other hyperlipidemia ([facility]) Asthma with COPD (chronic obstructive pulmonary disease) ([facility]) Non-recurrent acute serous otitis media of left ear Gastro-esophageal reflux disease without esophagitis documented in this encounter [facility] HealthcareEvaluation note* Diagnosis Iron deficiency anemia due to chronic blood loss- Primary Iron deficiency anemia secondary to blood loss (chronic) Current smoker Other hyperlipidemia ([facility]/HCC) Moderate persistent asthma without complication ([facility]) Type 2 diabetes mellitus without complication, without long-term current use of insulin ([facility]) Screening mammogram, encounter for Recurrent major depressive disorder, in full remission ([facility]) Asthma with COPD (chronic obstructive pulmonary disease) ([facility])- Primary Iron deficiency anemia due to chronic blood loss Iron deficiency anemia secondary to blood loss (chronic) Type 2 diabetes mellitus without complication, without long-term current use of insulin ([facility]/HCC) Primary hypertension ([facility]) Unspecified essential hypertension Asthma with COPD (chronic obstructive pulmonary disease) ([facility])- Primary Primary hypertension ([facility]) Unspecified essential hypertension Type 2 diabetes mellitus without complication, without long-term current use of insulin ([facility]/HCC) Primary hypertension ([facility]HCC)- Primary Unspecified essential hypertension Asthma with COPD (chronic obstructive pulmonary disease) ([facility]/HCC) Iron deficiency anemia due to chronic blood loss Iron deficiency anemia secondary to blood loss (chronic) Other hyperlipidemia ([facility]/HCC) Type 2 diabetes mellitus without complication, without long-term current use of insulin ([facility]) Vitamin D deficiency Dermoid cyst of right ear Tobacco dependency Tobacco use disorder Primary hypertension ([facility]/HCC)- Primary Unspecified essential hypertension Type 2 diabetes mellitus without complication, without long-term current use of insulin ([facility]CC) Other hyperlipidemia ([facility]/HCC) Asthma with COPD (chronic obstructive pulmonary disease) ([facility]) Non-recurrent acute serous otitis media of left ear Depression, unspecified ([facility]) documented in this encounter [facility] HealthcareEvaluation note* Diagnosis Iron deficiency anemia due to chronic blood loss- Primary Iron deficiency anemia secondary to blood loss (chronic) documented in this encounter [facility]* Diagnosis Iron deficiency anemia due to chronic blood loss- Primary Iron deficiency anemia secondary to blood loss (chronic) documented in this encounter [facility]* Diagnosis Type 2 diabetes mellitus without complications ([facility]) Hyperlipidemia, unspecified ([facility]/HCC) documented in this encounter [facility]* Diagnosis Hyperlipidemia, unspecified ([facility]/HCC) Other bursitis of elbow, left elbow Depression, unspecified ([facility]) Type 2 diabetes mellitus without complications ([facility]) documented in this encounter [facility] note* Diagnosis Iron deficiency anemia due to chronic blood loss- Primary Iron deficiency anemia secondary to blood loss (chronic) Current smoker Other hyperlipidemia ([facility]/HCC) Moderate persistent asthma without complication ([facility]/HCC) Type 2 diabetes mellitus without complication, without long-term current use of insulin ([facility]) Screening mammogram, encounter for Recurrent major depressive disorder, in full remission ([facility]) Asthma with COPD (chronic obstructive pulmonary disease) ([facility])- Primary Iron deficiency anemia due to chronic blood loss Iron deficiency anemia secondary to blood loss (chronic) Type 2 diabetes mellitus without complication, without long-term current use of insulin ([facility]/HCC) Primary hypertension ([facility]/HCC) Unspecified essential hypertension Asthma with COPD (chronic obstructive pulmonary disease) ([facility]/HCC)- Primary Primary hypertension (CMS/HCC) Unspecified essential hypertension [...] complication, without long-term current use of insulin ([facility]) Vitamin D deficiency Dermoid cyst of right ear Tobacco dependency Tobacco use disorder Primary hypertension (CMS/HCC)- Primary Unspecified essential hypertension Type 2 diabetes mellitus without complication, without long-term current use of insulin (CMS/HCC) Other hyperlipidemia (CMS/HCC) Asthma with COPD (chronic obstructive pulmonary disease) ([facility]) Non-recurrent acute serous otitis media of left ear Iron deficiency anemia due to chronic blood loss Iron deficiency anemia secondary to blood loss (chronic) documented in this encounter [facility] HealthcareEvaluation note* Diagnosis Iron deficiency anemia due to chronic blood loss- Primary Iron deficiency anemia secondary to blood loss (chronic) Current smoker Other hyperlipidemia (CMS/HCC) Moderate persistent asthma without complication ([facility]) Type 2 diabetes mellitus without complication, without long-term current use of insulin ([facility]) Screening mammogram, encounter for Recurrent major depressive disorder, in full remission ([facility]) Asthma with COPD (chronic obstructive pulmonary disease) ([facility])- Primary Iron deficiency anemia due to chronic blood loss Iron deficiency anemia secondary to blood loss (chronic) Type 2 diabetes mellitus without complication, without long-term current use of insulin ([facility]) Primary hypertension ([facility]/HCC) Unspecified essential hypertension Asthma with COPD (chronic obstructive pulmonary disease) ([facility]/HCC)- Primary Primary hypertension ([facility]/HCC) Unspecified essential hypertension Type 2 diabetes mellitus without complication, without long-term current use of insulin (CMS/HCC) Primary hypertension ([facility]/HCC)- Primary Unspecified essential hypertension Asthma with COPD (chronic obstructive pulmonary disease) ([facility]/HCC) Iron deficiency anemia due to chronic blood loss Iron deficiency anemia secondary to blood loss (chronic) Other hyperlipidemia (CMS/HCC) Type 2 diabetes mellitus without complication, without long-term current use of insulin ([facility]/HCC) Vitamin D deficiency Dermoid cyst of right ear Tobacco dependency Tobacco use disorder Primary hypertension (CMS/HCC)- Primary Unspecified essential hypertension Type 2 diabetes mellitus without complication, without long-term current use of insulin ([facility]) Other hyperlipidemia ([facility]) Asthma with COPD (chronic obstructive pulmonary disease) ([facility]) Non-recurrent acute serous otitis media of left ear Asthma with COPD (chronic obstructive pulmonary disease) ([facility]) documented in this encounter [facility] HealthcareEvaluation note* Diagnosis Iron deficiency anemia due to chronic blood loss- Primary Iron deficiency anemia secondary to blood loss (chronic) Current smoker Other hyperlipidemia ([facility]) Moderate persistent asthma without complication ([facility]) Type 2 diabetes mellitus without complication, without long-term current use of insulin ([facility]) Screening mammogram, encounter for Recurrent major depressive disorder, in full remission ([facility]) Asthma with COPD (chronic obstructive pulmonary disease) ([facility])- Primary Iron deficiency anemia due to chronic blood loss Iron deficiency anemia secondary to blood loss (chronic) Type 2 diabetes mellitus without complication, without long-term current use of insulin ([facility]) Primary hypertension ([facility]) Unspecified essential hypertension Asthma with COPD (chronic obstructive pulmonary disease) ([facility])- Primary Primary hypertension ([facility]) Unspecified essential hypertension Type 2 diabetes mellitus without complication, without long-term current use of insulin ([facility] Primary hypertension ([facility])- Primary Unspecified essential hypertension Asthma with COPD (chronic obstructive pulmonary disease) ([facility]) Iron deficiency anemia due to chronic blood loss Iron deficiency anemia secondary to blood loss (chronic) Other hyperlipidemia ([facility]) Type 2 diabetes mellitus without complication, without long-term current use of insulin ([facility] Vitamin D deficiency Dermoid cyst of right ear Tobacco dependency Tobacco use disorder Primary hypertension ([facility])- Primary Unspecified essential hypertension Type 2 diabetes mellitus without complication, without long-term current use of insulin ([facility]) Other hyperlipidemia ([facility] Asthma with COPD (chronic obstructive pulmonary disease) ([facility]) Non-recurrent acute serous otitis media of left ear Iron deficiency anemia due to chronic blood loss Iron deficiency anemia secondary to blood loss (chronic) documented in this encounter [facility] HealthcareEvaluation note* Diagnosis Acute hypoxic respiratory failure ([facility])- Primary Chronic obstructive pulmonary disease, unspecified COPD type ([facility]) Influenza A Influenza with other respiratory manifestations Aspiration pneumonia, unspecified aspiration pneumonia type, unspecified laterality, unspecified part of lung ([facility]) Depression, unspecified depression type Cigarette smoker Tobacco use disorder Type 2 diabetes mellitus without complication, without long-term current use of insulin ([facility]) Anxiety Anxiety state, unspecified [facility] Diagnosis Acute hypoxic respiratory failure ([facility])- Primary Chronic obstructive pulmonary disease, unspecified COPD type ([facility]) Influenza A Influenza with other respiratory manifestations Other abnormalities of gait and mobility [facility]* Diagnosis Acute hypoxic respiratory failure ([facility])- Primary Aspiration pneumonia, unspecified aspiration pneumonia type, unspecified laterality, unspecified part of lung ([facility]) Chronic obstructive pulmonary disease, unspecified COPD type ([facility]) Influenza A Influenza with other respiratory manifestations Type 2 diabetes mellitus without complication, without long-term current use of insulin ([facility]) Other abnormalities of gait and mobility Anxiety Anxiety state, unspecified [facility] Diagnosis Chronic obstructive pulmonary disease, unspecified COPD type ([facility])- Primary Influenza A Influenza with other respiratory manifestations Other abnormalities of gait and mobility Anxiety Anxiety state, unspecified Cigarette smoker Tobacco use disorder [facility]* Diagnosis Iron deficiency anemia due to chronic blood loss- Primary Iron deficiency anemia secondary to blood loss (chronic) Current smoker Other hyperlipidemia ([facility]) Moderate persistent asthma without complication ([facility]) Type 2 diabetes mellitus without complication, without long-term current use of insulin ([facility]) Screening mammogram, encounter for Recurrent major depressive disorder, in full remission ([facility]) Asthma with COPD (chronic obstructive pulmonary disease) ([facility])- Primary Iron deficiency anemia due to chronic blood loss Iron deficiency anemia secondary to blood loss (chronic) Type 2 diabetes mellitus without complication, without long-term current use of insulin ([facility]) Primary hypertension ([facility] Unspecified essential hypertension Asthma with COPD (chronic obstructive pulmonary disease) ([facility])- Primary Primary hypertension ([facility]) Unspecified essential hypertension Type 2 diabetes mellitus without complication, without long-term current use of insulin ([facility]) Primary hypertension ([facility])- Primary Unspecified essential hypertension Asthma with COPD (chronic obstructive pulmonary disease) ([facility]) Iron deficiency anemia due [...] COPD type (CMS/HCC) Acute hypoxic respiratory failure ([facility]) Type 2 diabetes mellitus without complication, without long-term current use of insulin ([facility]) Primary hypertension ([facility]/H[facility]) Unspecified essential hypertension 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 ([facility]) documented in this encounter [facility] HealthcareEvaluation note* Diagnosis Iron deficiency anemia due to chronic blood loss- Primary Iron deficiency anemia secondary to blood loss (chronic) Current smoker Other hyperlipidemia (CMS/HCC) Moderate persistent asthma without complication ([facility]) Type 2 diabetes mellitus without complication, without long-term current use of insulin ([facility]) Screening mammogram, encounter for Recurrent major depressive disorder, in full remission ([facility]) Asthma with COPD (chronic obstructive pulmonary disease) ([facility]/H[facility])- Primary Iron deficiency anemia due to chronic blood loss Iron deficiency anemia secondary to blood loss (chronic) Type 2 diabetes mellitus without complication, without long-term current use of insulin ([facility]) Primary hypertension (CMS/HCC) Unspecified essential hypertension Asthma with COPD (chronic obstructive pulmonary disease) ([facility])- Primary Primary hypertension ([facility]/HCC) Unspecified essential hypertension Type 2 diabetes mellitus without complication, without long-term current use of insulin (CMS/HCC) Primary hypertension ([facility]/HCC)- Primary Unspecified essential hypertension Asthma with COPD (chronic obstructive pulmonary disease) ([facility]/HCC) Iron deficiency anemia due to chronic blood loss Iron deficiency anemia secondary to blood loss (chronic) Other hyperlipidemia (CMS/HCC) Type 2 diabetes mellitus without complication, without long-term current use of insulin ([facility]/HCC) Vitamin D deficiency Dermoid cyst of right ear Tobacco dependency Tobacco use disorder Primary hypertension (CMS/HCC)- Primary Unspecified essential hypertension Type 2 diabetes mellitus without complication, without long-term current use of insulin ([facility]) Other hyperlipidemia ([facility]) Asthma with COPD (chronic obstructive pulmonary disease) ([facility]) Non-recurrent acute serous otitis media of left ear Influenza A- Primary Influenza with other respiratory manifestations Chronic obstructive pulmonary disease, unspecified COPD type ([facility]) Acute hypoxic respiratory failure ([facility]) Type 2 diabetes mellitus without complication, without long-term current use of insulin ([facility]) Primary hypertension ([facility]) Unspecified essential hypertension Benign neoplasm of cranial nerves ([facility]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 ([facility]) Scalp laceration, sequela- Primary Cigarette nicotine dependence without complication COPD exacerbation ([facility]) Obstructive chronic bronchitis with exacerbation documented in this encounter [facility] HealthcareEvaluation note* Diagnosis Iron deficiency anemia due to chronic blood loss- Primary Iron deficiency anemia secondary to blood loss (chronic) Current smoker Other hyperlipidemia ([facility]) Moderate persistent asthma without complication ([facility]) Type 2 diabetes mellitus without complication, without long-term current use of insulin ([facility]) Screening mammogram, encounter for Recurrent major depressive disorder, in full remission ([facility]) Asthma with COPD (chronic obstructive pulmonary disease) ([facility])- Primary Iron deficiency anemia due to chronic blood loss Iron deficiency anemia secondary to blood loss (chronic) Type 2 diabetes mellitus without complication, without long-term current use of insulin ([facility]) Primary hypertension ([facility] Unspecified essential hypertension Asthma with COPD (chronic obstructive pulmonary disease) ([facility])- Primary Primary hypertension ([facility]) Unspecified essential hypertension Type 2 diabetes mellitus without complication, without long-term current use of insulin ([facility]) Primary hypertension ([facility])- Primary Unspecified essential hypertension Asthma with COPD (chronic obstructive pulmonary disease) ([facility]) Iron deficiency anemia due to chronic blood loss Iron deficiency anemia secondary to blood loss (chronic) Other hyperlipidemia ([facility]) Type 2 diabetes mellitus without complication, without long-term current use of insulin ([facility] Vitamin D deficiency Dermoid cyst of right ear Tobacco dependency Tobacco use disorder Primary hypertension ([facility])- Primary Unspecified essential hypertension Type 2 diabetes mellitus without complication, without long-term current use of insulin ([facility]) Other hyperlipidemia ([facility]) Asthma with COPD (chronic obstructive pulmonary disease) ([facility]) Non-recurrent acute serous otitis media of left ear Influenza A- Primary Influenza with other respiratory manifestations Chronic obstructive pulmonary disease, unspecified COPD type ([facility]) Acute hypoxic respiratory failure ([facility]) Type 2 diabetes mellitus without complication, without long-term current use of insulin ([facility]) Primary hypertension ([facility]) Unspecified essential hypertension Benign neoplasm of cranial nerves (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 ([facility]) Scalp laceration, sequela- Primary Cigarette nicotine dependence without complication COPD exacerbation ([facility]) Obstructive chronic bronchitis with exacerbation Type 2 diabetes mellitus without complication, without long-term current use of insulin ([facility])- Primary Chronic obstructive pulmonary disease, unspecified COPD type ([facility]) Primary hypertension ([facility]) Unspecified essential hypertension Vitamin D deficiency Iron deficiency anemia due to chronic blood loss Iron deficiency anemia secondary to blood loss (chronic) Cigarette nicotine dependence without complication Recurrent major depressive disorder, in full remission ([facility]) Generalized anxiety disorder ([facility]) Generalized anxiety disorder Screening mammogram, encounter for Other hyperlipidemia ([facility] Acute hypoxic respiratory failure ([facility]) documented in this encounter [facility] HealthcareEvaluation note* Diagnosis Iron deficiency anemia due to chronic blood loss- Primary Iron deficiency anemia secondary to blood loss (chronic) Current smoker Other hyperlipidemia Moderate persistent asthma without complication ([facility]) Type 2 diabetes mellitus without complication, without long-term current use of insulin Screening mammogram, encounter for Recurrent major depressive disorder, in full remission ([facility]) Asthma with COPD (chronic obstructive pulmonary disease) ([facility])- Primary Iron deficiency anemia due to chronic blood loss Iron deficiency anemia secondary to blood loss (chronic) Type 2 diabetes mellitus without complication, without long-term current use of insulin Primary hypertension ([facility]) Unspecified essential hypertension Asthma with COPD (chronic obstructive pulmonary disease) ([facility])- Primary Primary hypertension ([facility]) Unspecified essential hypertension Type 2 diabetes mellitus without complication, without long-term current use of insulin Primary hypertension ([facility])- Primary Unspecified essential hypertension Asthma with COPD (chronic obstructive pulmonary disease) ([facility]) Iron deficiency anemia due to chronic blood loss Iron deficiency anemia secondary to blood loss (chronic) Other hyperlipidemia Type 2 diabetes mellitus without complication, without long-term current use of insulin Vitamin D deficiency Dermoid cyst of right ear Tobacco dependency Tobacco use disorder Primary hypertension ([facility])- Primary Unspecified essential hypertension Type 2 diabetes mellitus without complication, without long-term current use of insulin Other hyperlipidemia Asthma with COPD (chronic obstructive pulmonary disease) ([facility]) Non-recurrent acute serous otitis media of left ear Influenza A- Primary Influenza with other respiratory manifestations Chronic obstructive pulmonary disease, unspecified COPD type ([facility]) Acute hypoxic respiratory failure ([facility]) Type 2 diabetes mellitus without complication, without long-term current use of insulin Primary hypertension ([facility]) Unspecified essential hypertension Benign neoplasm of cranial nerves ([facility]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 ([facility]) Scalp laceration, sequela- Primary Cigarette nicotine dependence without complication COPD exacerbation ([facility]) Obstructive chronic bronchitis with exacerbation Type 2 diabetes mellitus without complication, without long-term current use of insulin- Primary Chronic obstructive pulmonary disease, unspecified COPD type ([facility]) Primary hypertension ([facility]) Unspecified essential hypertension Vitamin D deficiency Iron deficiency anemia due to chronic blood loss Iron deficiency anemia secondary to blood loss (chronic) Cigarette nicotine dependence without complication Recurrent major depressive disorder, in full remission ([facility]) Generalized anxiety disorder ([facility]) Generalized anxiety disorder Screening mammogram, encounter for Other hyperlipidemia Acute hypoxic respiratory failure ([facility]) Elevated TSH Other abnormal blood chemistry documented in this encounter [facility] HealthcareEvaluation note* Diagnosis Iron deficiency anemia due to chronic blood loss- Primary Iron deficiency anemia secondary to blood loss (chronic) Current smoker Other hyperlipidemia Moderate persistent asthma without complication ([facility]) Type 2 diabetes mellitus without complication, without long-term current use of insulin Screening mammogram, encounter for Recurrent major depressive disorder, in full remission ([facility]) Asthma with COPD (chronic obstructive pulmonary disease) ([facility])- Primary Iron deficiency anemia due to chronic blood loss Iron deficiency anemia secondary to blood loss (chronic) Type 2 diabetes mellitus without complication, without long-term current use of insulin Primary hypertension ([facility]) Unspecified essential hypertension Asthma with COPD (chronic obstructive pulmonary disease) ([facility])- Primary Primary hypertension ([facility]) Unspecified essential hypertension Type 2 diabetes mellitus without complication, without long-term current use of insulin Primary hypertension ([facility])- Primary Unspecified essential hypertension Asthma with COPD (chronic obstructive pulmonary disease) ([facility]) Iron deficiency anemia due to chronic blood loss Iron deficiency anemia secondary to blood loss (chronic) Other hyperlipidemia Type 2 diabetes mellitus without complication, without long-term current use of insulin Vitamin D deficiency Dermoid cyst of right ear Tobacco dependency Tobacco use disorder Primary hypertension ([facility])- Primary Unspecified essential hypertension Type 2 diabetes mellitus without complication, without long-term current use of insulin Other hyperlipidemia Asthma with COPD (chronic obstructive pulmonary disease) ([facility]) Non-recurrent acute serous otitis media of left ear Influenza A- Primary Influenza with other respiratory manifestations Chronic obstructive pulmonary disease, unspecified COPD type ([facility]) Acute hypoxic respiratory failure [facility] [facility]) Type 2 diabetes mellitus without complication, without long-term current use of insulin Primary hypertension ([facility]) Unspecified essential hypertension Benign neoplasm of cranial nerves ([facility]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 ([facility]) Scalp laceration, sequela- Primary Cigarette nicotine dependence without complication COPD exacerbation ([facility]) Obstructive chronic bronchitis with exacerbation Type 2 diabetes mellitus without complication, without long-term current use of insulin- Primary Chronic obstructive pulmonary disease, unspecified COPD type ([facility]) Primary hypertension ([facility]) Unspecified essential hypertension Vitamin D deficiency Iron deficiency anemia due to chronic blood loss Iron deficiency anemia secondary to blood loss (chronic) Cigarette nicotine dependence without complication Recurrent major depressive disorder, in full remission ([facility]) Generalized anxiety disorder ([facility]) Generalized anxiety disorder Screening mammogram, encounter for Other hyperlipidemia Acute hypoxic respiratory failure ([facility]) Iron deficiency anemia due to chronic blood loss Iron deficiency anemia secondary to blood loss (chronic) documented in this encounter [facility] HealthcareEvaluation note* Diagnosis Iron deficiency anemia due to chronic blood loss- Primary Iron deficiency anemia secondary to blood loss (chronic) Current smoker Other hyperlipidemia Moderate persistent asthma without complication ([facility]) Type 2 diabetes mellitus without complication, without long-term current use of insulin Screening mammogram, encounter for Recurrent major depressive disorder, in full remission ([facility]) Asthma with COPD (chronic obstructive pulmonary disease) ([facility])- Primary Iron deficiency anemia due to chronic blood loss Iron deficiency anemia secondary to blood loss (chronic) Type 2 diabetes mellitus without complication, without long-term current use of insulin Primary hypertension ([facility]) Unspecified essential hypertension Asthma with COPD (chronic obstructive pulmonary disease) ([facility])- Primary Primary hypertension (CMS/HCC) Unspecified essential hypertension Type 2 diabetes mellitus without complication, without long-term current use of insulin Primary hypertension ([facility])- Primary Unspecified essential hypertension Asthma with COPD (chronic obstructive pulmonary disease) ([facility]) Iron deficiency anemia due to chronic blood loss Iron deficiency anemia secondary to blood loss (chronic) Other hyperlipidemia Type 2 diabetes mellitus without complication, without long-term current use of insulin Vitamin D deficiency Dermoid cyst of right ear Tobacco dependency Tobacco use disorder Primary hypertension ([facility])- Primary Unspecified essential hypertension Type 2 diabetes mellitus without complication, without long-term current use of insulin Other hyperlipidemia Asthma with COPD (chronic obstructive pulmonary disease) ([facility]) Non-recurrent acute serous otitis media of left ear Influenza A- Primary Influenza with other respiratory manifestations Chronic obstructive pulmonary disease, unspecified COPD type ([facility]CC) Acute hypoxic respiratory failure ([facility]) Type 2 diabetes mellitus without complication, without long-term current use of insulin Primary hypertension ([facility]) Unspecified essential hypertension Benign neoplasm of cranial nerves ([facility]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 ([facility]) Scalp laceration, sequela- Primary Cigarette nicotine dependence without complication COPD exacerbation ([facility]) Obstructive chronic bronchitis with exacerbation Type 2 diabetes mellitus without complication, without long-term current use of insulin- Primary Chronic obstructive pulmonary disease, unspecified COPD type ([facility]) Primary hypertension ([facility]) Unspecified essential hypertension Vitamin D deficiency Iron deficiency anemia due to chronic blood loss Iron deficiency anemia secondary to blood loss (chronic) Cigarette nicotine dependence without complication Recurrent major depressive disorder, in full remission ([facility]) Generalized anxiety disorder ([facility]) Generalized anxiety disorder Screening mammogram, encounter for Other hyperlipidemia Acute hypoxic respiratory failure ([facility]/HCC) Asthma with COPD (chronic obstructive pulmonary disease) ([facility]) Chronic obstructive pulmonary disease, unspecified COPD type ([facility]) documented in this encounter [facility] HealthcareEvaluation note* Diagnosis Iron deficiency anemia due to chronic blood loss- Primary Iron deficiency anemia secondary to blood loss (chronic) Current smoker Other hyperlipidemia Moderate persistent asthma without complication ([facility]) Type 2 diabetes mellitus without complication, without long-term current use of insulin Screening mammogram, encounter for Recurrent major depressive disorder, in full remission ([facility]) Asthma with COPD (chronic obstructive pulmonary disease) (CMS/HCC)- Primary Iron deficiency anemia due to chronic blood loss Iron deficiency anemia secondary to blood loss (chronic) Type 2 diabetes mellitus without complication, without long-term current use of insulin Primary hypertension ([facility]) Unspecified essential hypertension Asthma with COPD (chronic obstructive pulmonary disease) ([facility])- Primary Primary hypertension (CMS/HCC) Unspecified essential hypertension Type 2 diabetes mellitus without complication, without long-term current use of insulin Primary hypertension ([facility])- Primary Unspecified essential hypertension Asthma with COPD (chronic obstructive pulmonary disease) ([facility]) Iron deficiency anemia due to chronic blood loss Iron deficiency anemia secondary to blood loss (chronic) Other hyperlipidemia Type 2 diabetes mellitus without complication, without long-term current use of insulin Vitamin D deficiency Dermoid cyst of right ear Tobacco dependency Tobacco use disorder Primary hypertension ([facility])- Primary Unspecified essential hypertension Type 2 diabetes mellitus without complication, without long-term current use of insulin Other hyperlipidemia Asthma with COPD (chronic obstructive pulmonary disease) ([facility]) Non-recurrent acute serous otitis media of left ear Influenza A- Primary Influenza with other respiratory manifestations Chronic obstructive pulmonary disease, unspecified COPD type ([facility]) Acute hypoxic respiratory failure ([facility]) Type 2 diabetes mellitus without complication, without long-term current use of insulin Primary hypertension ([facility]) Unspecified essential hypertension 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 ([facility]) Scalp laceration, sequela- Primary Cigarette nicotine dependence without complication COPD exacerbation ([facility]) Obstructive chronic bronchitis with exacerbation Type 2 diabetes mellitus without complication, without long-term current use of insulin- Primary Chronic obstructive pulmonary disease, unspecified COPD type ([facility]) Primary hypertension ([facility]) Unspecified essential hypertension Vitamin D deficiency Iron deficiency anemia due to chronic blood loss Iron deficiency anemia secondary to blood loss (chronic) Cigarette nicotine dependence without complication Recurrent major depressive disorder, in full remission ([facility]) Generalized anxiety disorder ([facility]) Generalized anxiety disorder Screening mammogram, encounter for Other hyperlipidemia Acute hypoxic respiratory failure ([facility]/HCC) Acquired hypothyroidism ([facility])- Primary Unspecified hypothyroidism documented in this encounter [facility] HealthcareEvaluation note* Diagnosis Iron deficiency [...] Tobacco dependency Tobacco use disorder Primary hypertension ([facility])- Primary Unspecified essential hypertension Type 2 diabetes mellitus without complication, without long-term current use of insulin Other hyperlipidemia Asthma with COPD (chronic obstructive pulmonary disease) ([facility]) Non-recurrent acute serous otitis media of left ear Influenza A- Primary Influenza with other respiratory manifestations Chronic obstructive pulmonary disease, unspecified COPD type (CMS/HCC) Acute hypoxic respiratory failure ([facility]) Type 2 diabetes mellitus without complication, without long-term current use of insulin Primary hypertension ([facility]CC) Unspecified essential hypertension 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 ([facility]) Scalp laceration, sequela- Primary Cigarette nicotine dependence without complication COPD exacerbation (CMS/HCC) Obstructive chronic bronchitis with exacerbation Type 2 diabetes mellitus without complication, without long-term current use of insulin- Primary Chronic obstructive pulmonary disease, unspecified COPD type (CMS/HCC) Primary hypertension ([facility]CC) Unspecified essential hypertension Vitamin D deficiency Iron deficiency anemia due to chronic blood loss Iron deficiency anemia secondary to blood loss (chronic) Cigarette nicotine dependence without complication Recurrent major depressive disorder, in full remission (CMS/HCC) Generalized anxiety disorder (CMS/HCC) Generalized anxiety disorder Screening mammogram, encounter for Other hyperlipidemia Acute hypoxic respiratory failure ([facility]/HCC) Depression, unspecified (CMS/HCC) documented in this encounter [facility] HealthcareEvaluation note* Diagnosis Iron deficiency anemia due to chronic blood loss- Primary Iron deficiency anemia secondary to blood loss (chronic) Current smoker Other hyperlipidemia Moderate persistent asthma without complication ([facility]/HCC) Type 2 diabetes mellitus without complication, without long-term current use of insulin Screening mammogram, encounter for Recurrent major depressive disorder, in full remission ([facility]) Asthma with COPD (chronic obstructive pulmonary disease) ([facility])- Primary Iron deficiency anemia due to chronic blood loss Iron deficiency anemia secondary to blood loss (chronic) Type 2 diabetes mellitus without complication, without long-term current use of insulin Primary hypertension ([facility]/HCC) Unspecified essential hypertension Asthma with COPD (chronic obstructive pulmonary disease) ([facility])- Primary Primary hypertension ([facility]/HCC) Unspecified essential hypertension Type 2 diabetes mellitus without complication, without long-term current use of insulin Primary hypertension ([facility])- Primary Unspecified essential hypertension Asthma with COPD (chronic obstructive pulmonary disease) ([facility]) Iron deficiency anemia due to chronic blood loss Iron deficiency anemia secondary to blood loss (chronic) Other hyperlipidemia Type 2 diabetes mellitus without complication, without long-term current use of insulin Vitamin D deficiency Dermoid cyst of right ear Tobacco dependency Tobacco use disorder Primary hypertension ([facility])- Primary Unspecified essential hypertension Type 2 diabetes mellitus without complication, without long-term current use of insulin Other hyperlipidemia Asthma with COPD (chronic obstructive pulmonary disease) ([facility]) Non-recurrent acute serous otitis media of left ear Influenza A- Primary Influenza with other respiratory manifestations Chronic obstructive pulmonary disease, unspecified COPD type ([facility]) Acute hypoxic respiratory failure ([facility]) Type 2 diabetes mellitus without complication, without long-term current use of insulin Primary hypertension ([facility]/HCC) Unspecified essential hypertension 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 ([facility]) Scalp laceration, sequela- Primary Cigarette nicotine dependence without complication COPD exacerbation ([facility]) Obstructive chronic bronchitis with exacerbation Type 2 diabetes mellitus without complication, without long-term current use of insulin- Primary Chronic obstructive pulmonary disease, unspecified COPD type ([facility]) Primary hypertension ([facility]) Unspecified essential hypertension Vitamin D deficiency Iron deficiency anemia due to chronic blood loss Iron deficiency anemia secondary to blood loss (chronic) Cigarette nicotine dependence without complication Recurrent major depressive disorder, in full remission ([facility]) Generalized anxiety disorder (CMS/HCC) Generalized anxiety disorder Screening mammogram, encounter for Other hyperlipidemia Acute hypoxic respiratory failure ([facility]) Osteoarthritis, unspecified osteoarthritis type, unspecified site- Primary documented in this encounter [facility] HealthcareEvaluation note* Diagnosis Iron deficiency [...] pulmonary disease) (HCC) documented in this encounter [facility] HealthcareEvaluation note* Diagnosis Iron deficiency anemia due [...] esophagitis Depression, unspecified documented in this encounter [facility] HealthcareEvaluation note* Diagnosis Iron deficiency anemia due [...] COPD type (HCC) documented in this encounter [facility] HealthcareEvaluation note* Diagnosis Iron deficiency anemia due [...] abnormal blood chemistry documented in this encounter [facility] HealthcareEvaluation note* Diagnosis Iron deficiency anemia due [...] major depressive disorder, in full remissionacuteSept2024 10:36am [facility] Work Phone: Hospital Discharge instructions No data available for this section [facility] instructionsAmbulatory Orders* Referral to Wound Care Time Frame: 08/22/25, Location: None [facility] Work Phone: InstructionsNot on filedocumented in this encounter [facility]Not on filedocumented in this encounter [facility]ructionsNot on filedocumented in this encounter [facility] No data available for this section [facility] HospitalReason for referral (narrative)* Consultation (Routine) - Pending ReviewSpecialtyDiagnoses / ProceduresReferred By Contact Referred To ContactGastroenterology Diagnoses Iron deficiency anemia due to chronic blood loss Procedures UT OFFICE/OUTPATIENT NEW HIGH MDM 60 MINUTES Daniel Cardoso, GREG [address] [place] [id number] Referral IDStatusReasonStart DateExpiration DateVisits RequestedVisits [id number] Review Specialty Services Required / SONI Granger for referral (narrative)No reason for referral information availableSelect [facility] Work Phone: Summary Purpose Family History Relationship [...] COPD December 13, 2024 12:54pm [facility] 12/09January 04, 2025 8:55am Reason for Visit [...] Admit Date Edema of both lower extremities [facility] 2024 10:36am Elevated TSH July 31, 2025 [...] Admit Date Edema of both lower extremities [facility] 2024 10:36am Elevated TSH July 31, 2025 [...] Admit Date Edema of both lower extremities [facility] 2024 10:36am Elevated TSH July 31, 2025 [...] section and content) DATE CREATED AUTHOR 10/22/2018 [employer] DATE CREATED AUTHOR AUTHOR'S ORGANIZ ATION 01/09/2023 [facility] DATE CREATED AUTHOR AUTHOR'S ORGANIZ ATION 12/17/2023 [facility] DATE CREATED AUTHOR AUTHOR'S ORGANIZ ATION 12/17/2024 [facility] DATE CREATED AUTHOR AUTHOR'S ORGANIZ ATION 06/28/2025 [facility] DATE CREATED AUTHOR AUTHOR'S ORGANIZ ATION 07/20/2025 [facility] Patient Care team informatio n (unrecognized section and content) Team MemberRelationshipSpecialtyStart DateEnd Date Shaikh Sánchez MD [address] [place] [phone] PCP - Linda IN11/14/23 Shaikh Sánchez MD [address] [place] [phone] PCP - GeneralInternal Medicine01/16/24 Zamzam Wheeler FILE CONVERSION OPERATOR [address] [place] [address] Nurse PractitionerInternal Medicine01/16/24 Kirstin Carreon LPN Licensed Practical NurseFamily Medicine07/27/24Team MemberRelationshipSpecialty Start DateEnd Date Shaikh Sánchez MD [address] [place] [address] PCP - Linda MORALES11/14/23 Ian Soares MD [address] [place] [address] PCP - GeneralFamily Feqpcmxj85/29/24 Zamzam Wheeler NP [address] [place] [address] Nurse PractitionerInternal Medicine01/16/24 Kirstin Carreon LPN Licensed Practical NurseFamily Medicine07/27/24 Danile Cardoso NP [address] [place] [address] Nurse PractitionerFamily Ekuxsxed58/29/24Team MemberRelationshipSpecialtyStart DateEnd Date Shaikh Sánchez MD [address] [place] [address] PCP - Linda MORALES11/14/23 Ian Soares MD [address] [place] [address] PCP - GeneralFamily Cdzitpyc63/29/24 Zamzam Wheeler NP [address] [place] [address] Nurse PractitionerInternal Medicine01/16/24 Kirstin Carreon LPN Licensed Practical NurseFamily Medicine07/27/24 Daniel Cardoso, GREG [address] [place] [address] Nurse PractitionerFamily Kbphgkgw17/29/24Team MemberRelationshipSpecialtyStart DateEnd Date Shaikh Sánchez MD [address] [place] [phone] PCP - [place]11/14/23 Ian Soares MD [address] [place] [phone] PCP - GeneralFamily Qefpjsxg29/29/24 Zamzam Wheeler NP [address] [place] [address] Nurse PractitionerInternal Medicine01/16/24 Kirstin Carreon LPN Licensed Practical NurseFamily Medicine07/27/24 Daniel Cardoso, GREG [address] [place] [address] Nurse PractitionerFamily Yyftqkfy99/29/24Team MemberRelationshipSpecialtyStart DateEnd Date Shaikh Sánchez MD [address] [place] [phone] PCP - Linda MORALES11/14/23 Ian Soares MD [address] [place] [address] PCP - GeneralFamily Oirtgemi30/29/24 Zamzam Wheeler, FILE CONVERSION OPERATOR [address] [place] [address] Nurse PractitionerInternal Medicine01/16/24 Kirstin Carreon LPN Licensed Practical NurseFamily Medicine07/27/24 Daniel Cardoso, GREG [address] [place] [address] Nurse PractitionerFamily Mabjfjkz50/29/24Team MemberRelationshipSpecialtyStart DateEnd Date Shaikh Sánchez MD [address] [place] [phone] PCP - [place] IN11/14/23 Shaikh Sánchez MD [address] [place] [phone] PCP - GeneralInternal Medicine01/16/24 Zamzam Wheeler, FILE CONVERSION OPERATOR [address] [place] [address] Nurse PractitionerInternal Medicine01/16/24 Gustavo Romero LPN Licensed Practical NurseFamily Medicine07/04/24Team MemberRelationshipSpecialty Start DateEnd Date Shaikh Sánchez MD [address] [place] [phone] PCP - [place]11/14/23 Ian Soares MD [address] [place] [address] PCP - GeneralFamily Otsrngpe16/29/24 Zamzam Wheeler, FILE CONVERSION OPERATOR [address] [place] [address] Nurse PractitionerInternal Medicine01/16/24 Daniel Cardoso NP [address] [place] [address] Nurse PractitionerFamily Iltemvag70/29/24 Arturo Chanel [facility]09/24/24Team MemberRelationshipSpecialtyStart DateEnd Date Shaikh Sánchez MD [address] [place] [phone] PCP - [place] IN11/14/23 Shaikh Sánchez MD [address] [place] [address] PCP - GeneralInternal Medicine01/16/24 Zamzam Wheeler, FILE CONVERSION OPERATOR [address] [place] [address] Nurse PractitionerInternal Medicine01/16/24 Gustavo Romero LPN Licensed Practical NurseFamily Medicine07/04/24Team MemberRelationshipSpecialty Start DateEnd Date Shaikh Sánchez MD [address] [address] PCP - [place]11/14/23 Shaikh Sánchez MD [address] [place] [address] PCP - GeneralInternal Medicine01/16/24 Zamzam Wheeler, FILE CONVERSION OPERATOR [address] [place] [address] Nurse PractitionerInternal Medicine01/16/24 Gustavo Romero LPN Licensed Practical NurseFamily Medicine07/04/24Team MemberRelationshipSpecialty Start DateEnd Date Shaikh Sánchez MD [address] [place] [address] PCP - [place]11/14/23 Shaikh Sánchez MD [address] [place] [address] [facility] - [facility]/16/24 Zamzam Wheeler FILE CONVERSION OPERATOR [address] [place] [id number] Nurse PractitionerCarondelet St. Joseph'[facility] Hospitalnal [facility]01/16/24 Gustavo Romero LPN Licensed Practical NurseFamily [facility]07/04/24Team MemberRelationshipSpecialty Start DateEnd Date Shaikh Sánchez MD [address] [place] [address] PCP - [place]11/14/23 Shaikh Sánchez MD [address] [place] [address] PCP - GeneralInternal Medicine01/16/24 Zamzam Wheeler, GREG [address] [place] [address] Nurse PractitionerInternal Medicine01/16/24 Kirstin Carreon LPN Licensed Practical NurseFamily Medicine07/27/24Team MemberRelationshipSpecialty Start DateEnd Date Shaikh Sánchez MD [address] [place] [address] PCP - [place]11/14/23 Ian Soares MD [address] [place] [address] PCP - GeneralFamily Thfrpiza74/29/24 Zamzam Wheeler NP [address] [place] [address] Nurse PractitionerInternal Medicine01/16/24 Daniel Cardoso NP [address] [place] [address] Nurse PractitionerFamily Hpnnqhat64/29/24 Arturo Chanel MA Family Gqnhscla90/11/24Team MemberRelationshipSpecialtyStart DateEnd Date Shaikh Sánchez MD [address] [place] [address] PCP - [place]11/14/23 Ian Soares MD [address] [place] [address] PCP - GeneralFamily Gijfrluk72/29/24 Zamzam Wheeler NP [address] [place] [address] Nurse PractitionerInternal Medicine01/16/24 Daniel Cardoso NP [address] [place] [address] [facility]09/11/24 Arturo Chanel MA [facility]09/24/24Team MemberRelationshipSpecialtyStart DateEnd Date Shaikh Sánchez MD [address] [place] [address] PCP - [facility]11/14/23 Ian Soares MD [address] [place] [address] PCP - [facility]09/11/24 Zamzam Wheeler NP [address] [place] [address] Nurse PractitionerInternal [facility]01/16/24 Daniel Cardoso NP [address] [place] [address] Nurse Pract[facility]FaCandler [facility]09/11/24 Arturo Chanel MA [facility]09/24/24 Team Status: Active Member Role Status Dates LINDA FrancoisC Primary Care Provider Ac tive Team Status: Inactive Member Role Status Dates Daniel Cardoso FILE CONVERSION OPERATOR-C Primary Care Provider Ac tive Start: December [...] Member Role Status Dates Daniel Cardoso , FILE CONVERSION OPERATOR-C Primary Care Provider Ac tive Start: December [...] DateEnd Date Gianna Isabel MD PCP - [facility]Unity[facility]02/07/17 Team Status: Inactive Member Role Status Dates Daniel Cardoso , FILE CONVERSION OPERATOR-C Primary Care Provider Ac tive Start: December [...] Active Member Role Status Dates Daniel Cardoso FILE CONVERSION OPERATOR-C Primary Care Provider Ac tive Start: December 10, 2024 Neville Wakefield ProviderActiveStart: December 10, 2024 Team Status: Active Member Role Status Dates Daniel Cradoso FILE CONVERSION OPERATOR-C Primary Care Provider Ac tive Start: December [...] Inactive Member Role Status Dates Daniel Cardoso FILE CONVERSION OPERATOR-C Primary Care Provider Ac tive Start: January 04, 2025 End: January 04, 2025Huang Hinkle ProviderActiveStart: January 04, 2025 End: January 04, 2025Team MemberRelationshipSpecialtyStart DateEnd Date Ian Soares MD [address] [place] [address] [facility] - [facility] Cdysvpyn00/29/24 Zamzam Wheeler NP [facility]01/16/24 Daniel Cardoso NP [address] [place] [address] Nurse Pract[facility]er[facility]09/11/24 Arturo Chanelformerly [facility]09/24/24Team MemberRelationshipSpecialtyStart DateEnd Date Ian Soares MD [address] [place] [address] PCP - [facility]09/11/24 Zamzam Wheeler NP [facility]01/16/24 Daniel Cardoso NP [address] [place] [address] Nurse [facility]er[facility]09/11/24 Arturo Chanelformerly [facility]09/24/24Team MemberRelationshipSpecialtyStart DateEnd Date Shaikh Sánchez MD [address] [place] [address] PCP - [facility]11/14/23 Ian Soares MD [address] [place] [address] PCP - [facility]09/11/24 Zamzam Wheeler NP [address] [place] [address] Nurse PractitionerInternal Medicine01/16/24 Daniel Cardoso NP [address] [place] [address] Nurse PractitionerFamily Oaibafbl60/29/24 Arturo Chanel MA [facility]09/24/24Team MemberRelationshipSpecialtyStart DateEnd Date Shaikh Sánchez MD [address] [place] [address] PCP - [place]11/14/23 Ian Soares MD [address] [place] [address] PCP - Generalmily Wtwduhlw09/29/24 Zamzam Wheeler NP [address] [place] [address] Nurse PractitionerInternal Medicine01/16/24 Daniel Cardoso NP [address] [place] [address] Nurse PractitionerFautly Exgolvvr96/29/24 Arturo Chanel MA [facility]09/24/24Team MemberRelationshipSpecialtyStart DateEnd Date Shaikh Sánchez MD [address] [place] [address] PCP - [place]11/14/23 Ian Soares MD [address] [place] [address] PCP - GeneralFamily Sfuvtsbu52/29/24 Zamzam Wheeler NP [address] [place] [address] Nurse PractitionerInternal [facility]01/16/24 Arturo Chanel, CARMEN [facility]09/24/24 La Pack NP [address] [place] [address] Nurse [facility] Medicine02/06/25Team MemberRelationshipSpecialtyStart DateEnd Date Shaikh Sánchez MD [address] [place] [address] PCP - [facility]11/14/23 Ian Soares MD [address] [place] [address] PCP - [facility]Unity[facility] Ouwxhsxm19/29/24 Zamzam Wheeler NP [address] [place] [address] Nurse PractitionerInternal Medicine01/16/24 Arturo Chanel, [facility]09/24/24 La Pack NP [address] [place] [address] Nurse PractitionerSouth[facility]02/06/25Te MemberRelationshipSpecialtyStart DateEnd Date Shaikh Sánchez MD [address] [place] [address] PCP - [place]11/14/23 Ian Soares MD [address] [place] [address] PCP - GeneralFamily Sdwdsbzj93/29/24 Zamzam Wheeler, FILE CONVERSION OPERATOR [address] [place] [address] Nurse PractitionerInternal Medicine01/16/24 Arturo Chanel, CARMEN [facility]09/24/24 La Pack NP [address] [place] [address] Nurse Practitionermily Medicine02/06/25Team MemberRelationshipSpecialtyStart DateEnd Date Shaikh Sánchez MD [address] [place] [address] PCP - [place]11/14/23 Ian Soares MD [address] [place] [address] PCP - GeneralFamily Udysowgq24/29/24 Zamzam Wheeler FILE CONVERSION OPERATOR [address] [place] [address] Nurse PractitionerInternal Medicine01/16/24 Arturo Chanel, CARMEN [facility]09/24/24 La Pack NP [address] [place] [address] Nurse PractitionerFami Medicine02/06/25Team MemberRelationshipSpecialtyStart DateEnd Date Shaikh Sánchez MD [address] [place] [address] PCP - [place]11/14/23 Ian Soares MD [address] [place] [address] [facility] - [facility] Oqginqlj84/29/24 Zamzam Wheeler NP [address] [place] [address] Nurse PractitionerInternal Medicine01/16/24 Arturo Chanel [facility]09/24/24 La Pack NP [address] [place] [address] Nurse Pract[facility]erSouth[facility]02/06/25Team MemberRelationshipSpecialtyStart DateEnd Date Shaikh Sánchez MD [address] [place] [address] PCP - [place]11/14/23 Ian Soares MD [address] [place] [address] [facility] - [facility] Mzyaaalq62/29/24 Zamzam Wheeler FILE CONVERSION OPERATOR [address] [place] [address] [facility] Hospitalnal Medicine01/16/24 Arturo Chanel MA Family Alcacjtd21/11/24 La Pack, GREG [address] [place] [address] Nurse PractitionerFamily Medicine02/06/25Team MemberRelationshipSpecialtyStart DateEnd Date Shaikh Sánchez MD [address] [place] [address] PCP - [place]11/14/23 Ian Soares MD [address] [place] [address] PCP - GeneralFamily Uyualqiw32/29/24 Zamzam Wheeler NP [address] [place] [address] Nurse PractitionerCampbellton[facility]01/16/24 Arturo Chanel MA [facility]09/24/24 La Pack, GREG [address] [place] [address] Nurse PractitionerUnity[facility]02/06/25Team MemberRelationshipSpecialtyStart DateEnd Date Shaikh Sánchez MD [address] [place] [address] PCP - [place]11/14/23 Ian Soares MD [address] [place] [address] PCP - GeneralFamily Qznawdkz75/29/24 Zamzam Wheeler NP [address] [place] [address] Nurse PractitionerInternal Medicine01/16/24 Arturo Chanel MA [address] [place] [address] [facility]09/24/24 La Pack, GREG [address] [place] [address] Nurse PractitionerSouth[facility]02/06/25Te MemberRelationshipSpecialtyStart DateEnd Date Shaikh Sánchez MD [address] [place] [address] PCP - [facility]11/14/23 Ian Soares MD [address] [place] [address] PCP - [facility]South[facility]09/11/24 Zamzam Wheeler NP [address] [place] [address] Nurse PractitionerInternal Medicine01/16/24 Arturo Chanel MA [address] [place] [address] [facility]09/24/24 La Pack NP [address] [place] [address] Nurse PractitionerSouth[facility]02/06/25Team MemberRelationshipSpecialtyStart DateEnd Date Shaikh Sánchez MD [address] [place] [address] PCP - [place]11/14/23 Ian Soares MD [address] [place] [address] [facility] - [facility] Vlkhdhkq80/29/24 Zamzam Wheeler, FILE CONVERSION OPERATOR [address] [place] [address] Nurse PractitionerCampbellton[facility] Medicine01/16/24 Arturo Chanel, [place] [address] [place] [address] Family Jucmwpht89/11/24 La Pack NP [address] [place] [address] Nurse PractitionerSouth[facility]02/06/25Team MemberRelationshipSpecialtyStart DateEnd Date Shaikh Sánchez MD [address] [place] [address] PCP - [place]11/14/23 Ian Soares MD [address] [place] [address] PCP - General acute hospital Reoqmhjy21/29/24 Zamzam Wheeler, FILE CONVERSION OPERATOR [address] [place] [address] Nurse PractitionerInternal [facility]01/16/24 Arturo Chanel MA [address] [place] [address] [facility]09/24/24 La Pack NP [address] [place] [address] Nurse PractitionerSouth[facility]02/06/25Team MemberRelationshipSpecialtyStart DateEnd Date Shaikh Sánchez MD [address] [place] [address] PCP - [facility]11/14/23 Ian Soares MD [address] [place] [address] PCP - [facility]South[facility]09/11/24 Zamzam Wheeler NP [address] [place] [address] Nurse PractitionerInternal [facility]01/16/24 Arturo Chanel MA [address] [place] [address] [facility]09/24/24 La Pack NP [address] [place] [address] Nurse PractitionerSouth[facility]02/06/25Te MemberRelationshipSpecialtyStart DateEnd Date Shaikh Sánchez MD [address] [place] [address] PCP - [place]11/14/23 Ian Soares MD [address] [place] [address] PCP - GeneralFamily Lgrccgub27/29/24 Zamzam Wheeler FILE CONVERSION OPERATOR [address] [place] [address] Nurse PractitionerInternal Medicine01/16/24 Arturo Chanel, [place] [address] [place] [address] Family Pkujxgjy57/11/24 La Pack NP [address] [place] [address] Nurse Pract[facility]erSouth[facility]02/06/25Team MemberRelationshipSpecialtyStart DateEnd Date Shaikh Sánchez MD [address] [place] [address] PCP - [place]11/14/23 Ian Soares MD [address] [place] [address] PCP - GeneralFami Dsoncrqc42/29/24 Zamzam Wheeler NP [address] [place] [address] Nurse PractitionerInternal Medicine01/16/24 La Pack NP [address] [place] [address] Nurse PractitionerFawestover [facility] Medicine02/06/25 Team Status: Active Member Role Status Dates La Pack , FILE CONVERSION OPERATOR-C Primary Care Provider Active Team Status: Inactive Member Role Status Dates La Pack , FILE CONVERSION OPERATOR-C Primary Care Provider Active Start: July 31, 2025 End: July 31, 2025La Pack , FILE CONVERSION OPERATOR-CAttending ProviderActiveStart: July 31, 2025 End: July 31, 2025 Team Status: Active Member Role Status Dates La Pack , FILE CONVERSION OPERATOR-C Primary Care Provider Active Start: August 12, 2025 La Pack , FILE CONVERSION OPERATOR-CAttending ProviderActiveStart: August 12, 2025 Team Status: Inactive Member Role Status Dates La Pack , FILE CONVERSION OPERATOR-C Primary Care Provider Active Start: August 22, 2025 End: August 22, 2025La Pack , FILE CONVERSION OPERATOR-CAttending ProviderActiveStart: August 22, 2025 End: August 22, 2025Team MemberRelationshipSpecialtyStart DateEnd Date Shaikh Sánchez MD PCP - GeneralInternal Medicine Shaikh Sánchez MD [address] [place] [address] PCP - [place]11/14/23 Shaikh Sánchez MD [address] [place] [address] PCP - GeneralInternal Medicine01/15/2410 [place] [address] [place] [address] PCP - GeneralFamily Hokzkzrv87/29/24 Zamzam Wheeler NP [address] [place] [place] [address] [facility]nal Medicine01/16/24 Funmilayo Lombardo, NUCLEAR PLANT EQUIPMENT OPERATOR [address] [place] [address] Social WorkerScleveland clinic [facility] Services Gustavo Romero LPN Licensed Practical NurseFamily Medicine Kirstin Carreon LPN [address] [place] [address] Licensed Practical NurseFamily Medicine07/27/2411 [place] [address] [place] [address] Nurse PractitionerFamily Rkhnqklp17/29/243 Arturo Chanel MA [address] [place] [address] Family Rjamkohp43/11/248 La Pack NP [address] [place] [address] Nurse PractitionerFamily Medicine02/06/25Team MemberRelationshipSpecialtyStart DateEnd Date Shaikh Sánchez MD [address] [place] [address] PCP - [place]11/14/23 Shaikh Sánchez MD [address] [place] [place] [address] PCP - GeneralInternal Medicine01/15/2410 [place] [address] [address] PCP - GeneralFamily Cycixlge38/29/24 Zamzam Wheeler NP [address] [place] [place] [address] Nurse PractitionerInternal Medicine01/16/24 Grupo Funmilayo, NUCLEAR PLANT EQUIPMENT OPERATOR [address] [address] Social WorkerSocial Services Gustavo Romero LPN Licensed Practical NurseFamily Medicine Kirstin Carreon LPN [address] [address] Licensed Practical NurseFamily Medicine07/27/2411 [place] [address] [address] Nurse PractitionerFamily Oowhzlgs67/29/243 Arturo Chanel, [place] [address] [place] [address] Family Bnywauem99/11/248 La Pack NP [address] [place] [address] Nurse PractitionerFamily Medicine02/06/25 Team Status: Active Member Role/Relationship Status Dates SILVER Norman Primary Care Provider Active Team Status: Inactive Member Role/Relationship Status Dates SILVER Norman Primary Care Provider Active Start: July 31, 2025 End: July 31, 2025La Pack , FILE CONVERSION OPERATOR-CAttending ProviderActiveStart: July 31, 2025 End: July 31, 2025 Team Status: Active Member Role/Relationship Status Dates La Pack , FILE CONVERSION OPERATOR-C Primary Care Provider Active Start: August 12, 2025 La Pack , FILE CONVERSION OPERATOR-CAttending ProviderActiveStart: August 12, 2025 Team Status: Inactive Member Role/Relationship Status Dates La Pack , FILE CONVERSION OPERATOR-C Primary Care Provider Active Start: August 22, 2025 End: August 22, 2025La Pack , FILE CONVERSION OPERATOR-CAttending ProviderActiveStart: August 22, 2025 End: August 22, 2025 Team Status: Active Member Role/Relationship Status Dates La Pack , FILE CONVERSION OPERATOR-C Primary Care Provider Active Start: August 27, 2025 La Pack , FILE CONVERSION OPERATOR-CAttending ProviderActiveStart: August 27, 2025 Team Status: Inactive Member Role/Relationship Status Dates La Pack , FILE CONVERSION OPERATOR-C Primary Care Provider Active Start: September 12, 2025 End: September 12, 2025La Pack , FILE CONVERSION OPERATOR-CAttending ProviderActiveStart: September 12, 2025 End: September 12, 2025 Reason for Visit (unrecogniz ed section and content) ReasonOnset DateCommentsMed [id number] DateCommentsMed Refill 4ReasonOnset DateCommentsMed Drhntt0309/11/2024easonCommentsFollow-up ReasonOnset DateCommentsMed [id number] DateCommentsMed Refill 10/22/2024easonCommentsMed RefillReasonOnset DateCommentsMed Dnfnzm4907/23/2024 ReasonOnset DateCommentsMed [id number] DateCommentsMed Refill 4ReasonOnset DateCommentsMed Azidhm1111/27/2024ReasonOnset DateComments Med Cmshry8012/06/2024ReasonCommentsFollow-upHospital f/uSore ThroatEaracheRight earReasonCommentsSuture / Staple RemovalheadReasonOnset DateCommentsMed Refill 02/25/2025ReasonOnset DateCommentsMed Bzihrb2006/05/2025ReasonCommentsDiabetes Goals (unrecognized section and content) Goals may [...] BE BASED ON THE PRIMARY CLINICAL RECORDS. [facility] provides no warranty or guarantee of the accuracy or completeness of information in this document.
--- NOTE | 2025-10-22 12:23 | PM.IMHP1 ---
Internal Medicine - H&P: HPI History of Present Illness Chief complaint: WEAKNESS, CELLULITIS, ALTERED MENTAL STATUS Narrative: This is a 70 y.o female with past medical history of COPD, with chronic hypoxic respiratory failure on 3-4 L nasal cannula, type 2 diabetes, tobacco use, history of pneumonia that required intubation, as well as brain tumor with excision around 15 years ago, who lives with her boyfriend and grandson, presents today with altered mental status. Patient tells me that her boyfriend noticed that she was hallucinating and she had blurry vision. She tells me that she was seeing and hearing months around her. Denies any shortness of breath or chest pain or nausea or vomiting or fever or chills. She did have leukocytosis on CBC, CMP showed hypernatremia of 149, troponin of 12, With CPK of 202, slightly elevated ALT at 84, CRP of 5, BUN of 22. CT head without contrast was negative for acute pathology. Venous Doppler was negative for acute DVT bilaterally. UA was negative for UTI. ABG did show pH of 7.349 with PaCO2 of 65 with good compensation of bicarb of 33-35. when he went to the room, patient was able to give me all the history however she does have moments where she kind of dozes off during the conversation. I did try to call her but could not get a hold of him. I called her Sister Yue. As per her sister, this is her baseline mental status. She tells me that the patient lives with her boyfriend and her grandson. She did receive 1 dose of Unasyn IV in the ED. Patient to be admitted under hospitalist service for further workup and management Review of Systems ROS Status of ROS 10 or more systems reviewed and unremarkable except as noted in history and below [facility] Medical History (Updated 10/22/25 @ 12:43 by Soco Beasley MD) Pneumonia ?J18.9 - Pneumonia, unspecified organism (ICD-10) Smoker ?F17.200 - Nicotine dependence, unspecified, uncomplicated (ICD-10) Colon polyps ?K63.5 - Polyp of colon (ICD-10) Diabetes 1.5, managed as type 2 ?E13.9 - Other specified diabetes mellitus without complications (ICD-10) Low iron ?E61.1 - Iron deficiency (ICD-10) COPD (chronic obstructive pulmonary disease) ?J44.9 - Chronic obstructive pulmonary disease, unspecified (ICD-10) Surgical History (Updated 10/22/25 @ 11:08 by Cesilia Condon) H/O excision of tumor of brain meninges ?Z98.890 - Other specified postprocedural states (ICD-10) ?Z86.03 - Personal history of neoplasm of uncertain behavior (ICD-10) Social History Highest level of school completed/degree received: 7th grade Little interest or pleasure in doing things: not at all Feeling down, depressed, or hopeless: not at all Meds Home Medications and Allergies Home Medications ?Medication ?Instructions ?Recorded ?Confirmed ?Type albuterol sulfate 90 mcg/actuation 2 puff inhalation Q4H PRN 12/09/24 10/22/25 History aerosol inhaler shortness of breath or wheezing atorvastatin 40 mg tablet 40 mg PO DAILY 12/09/24 10/22/25 History fluticasone fur. 200 mcg-umeclid 1 inh inhalation DAILY 12/09/24 10/22/25 History 62.5 mcg-vilant 25 mcg inhalat.powder (Trelegy Ellipta) losartan 50 mg tablet 50 mg PO DAILY 12/09/24 10/22/25 History meloxicam 7.5 mg tablet 7.5 mg PO DAILY 12/09/24 10/22/25 History metformin 500 mg tablet 500 mg PO DAILY 12/09/24 10/22/25 History omeprazole 20 mg capsule,delayed 20 mg PO DAILY 12/09/24 10/22/25 History release sertraline 50 mg tablet 50 mg PO DAILY 12/09/24 10/22/25 History ferrous sulfate 325 mg (65 mg 325 mg PO QDAY 01/14/25 10/22/25 History iron) tablet,delayed release lorazepam 0.5 mg tablet 0.5 mg PO .qhs 01/14/25 10/22/25 History Allergies Allergy/AdvReac Type Severity Reaction Status Date / Time No Known Drug Allergies Allergy Verified 10/22/25 07:33 Exam Narrative Exam Narrative: General/neuro: Frail and fragile disheveled 70-year-old female, looks much older than stated age. Not in acute distress. However she is ill-appearing. She tends to be alert and x 3 following commands with no focal deficit but generalized weakness in lower extremities. She tends to doze off at times however she is completely able to secure airway GCS of at least 13. Skin: Warm, dry, no pallor noted. No rash. Head: Normocephalic, atraumatic. Neck: Supple, non-tender. Eye: Pupils are equal, round and EOMI. No scleral icterus. Ears, Nose, Mouth, and Throat: very dry mucous membranes Cardiovascular: Regular Rate and Rhythm without murmur, gallop or rub. Respiratory: No accessory muscle use or respiratory distress. No wheezes no crackles bilateral air entry is decreased given history of COPD. She is not respiratory stress she is at baseline oxygen requirements 3 to 4 L saturating 94 to 96%. Chest Wall: no tenderness Back: No midline thoracic or lumbar vertebral tenderness. No CVA tenderness Musculoskeletal: Bilateral lower extremity 2+ pitting edema with erythema and scaling from the toes up to the bilateral knees. She does have a component of chronic venous stasis dermatitis with cellulitis on top of it GI: Abdomen is soft, non-distended. Normal bowel sounds. No masses appreciated. No tenderness to palpation. No rebound, guarding, or rigidity noted. Constitutional Vital Signs, click to edit/add: Last Vital Signs Temp 96.6 F L 10/22/25 11:46 Pulse 92 H 10/22/25 12:00 Resp 22 H 10/22/25 11:46 BP 125/70 10/22/25 11:46 Pulse Ox 94 L 10/22/25 11:46 O2 Del Method Nasal Cannula 10/22/25 11:46 O2 Flow Rate 4 10/22/25 11:46 Internal Medicine - H&P: Reslt Labs Labs: Short CBC 10/22/25 Range/Units 07:43 WBC 15.0 H (4.0-11.0) 10^3/uL Hgb 8.6 L (12.0-16.0) g/dL Hct 29.4 L (36.0-48.0) % Plt Count 413 (150-450) 10^3/uL BMP 10/22/25 07:43 Sodium 149 H Potassium 4.8 Chloride 108 H Carbon Dioxide 36.3 H BUN 22.0 H Creatinine 0.78 Glucose 132 H Calcium 9.0 Liver Function 10/22/25 Range/Units 07:43 Total Bilirubin 0.2 (0.2-1.0) mg/dL AST 32 (15-37) U/L ALT 84 H (14-59) U/L Alkaline Phosphatase 139 H (46-116) U/L Albumin 2.5 L (3.4-5.0) g/dL Urine 10/22/25 Range/Units 08:00 Urine Color Lt. yellow (YELLOW) Urine Clarity Clear (CLEAR) Urine pH 6.0 (5.0-9.0) Ur Specific [place] 1.020 (1.005-1.025) Urine Protein Trace (NEG/TRACE) mg/dL Urine Glucose (UA) Negative (NEGATIVE) mg/dL Urinary Catheter Management Urinary Catheter Management Urethral: Cath placed during this visit: yes Urethral indwelling: No Insertion date: 10/22/25 Insertion time: 08:14 Assessment and Plan Assessment and Plan (1) Metabolic encephalopathy: (2) Cellulitis: (3) Debility: Plan Altered mental status likely the setting of metabolic encephalopathy secondary to cellulitis of her bilateral lower extremities UTI and COPD exacerbation to rule out given normal UA and well compensated ABG Frailty and debility, possibly need higher level of care Hypernatremia in setting of dehydration decrease the oral intake with free water deficit of 2 L - Admit patient to medical floor telemetry - Obtain CT chest without contrast, echo and MRI brain without contrast - Start IV Unasyn 3 g every 6 hours - PT/OT evaluation - Wound care consult - Apply compression stockings to the bilateral lower extremities - Follow-up on blood cultures results - HSQ for DVT prophylaxis - Carb consistent diet - GI prophylaxis with p.o. pantoprazole patient's home - I reconciled the medication - I attempted discussed the goals of care she stated that she would like to discuss that with her boyfriend which I could not get a hold of. I tried to discuss that with the sister but she deferred that also to the patient's boyfriend
--- NOTE | 2025-10-22 12:24 | CA_ITS ---
Patient Name: JULIAN MONTAÑO MR#: [id number] : 1955 Exam Date: 10/22/2025 Ordering Doctor: LIZ NERI ECHOCARDIOGRAM REPORT PROCEDURE: CA ECHO DOPPLER COMPLETE INDICATIONS: ruling out CHF COMPARISON: None. DESCRIPTION: COMPLETE ECHOCARDIOGRAM Real-time transthoracic echocardiography with 2D, M-mode, spectral and color flow Doppler performed. QUALITY: Technical quality was good. LEFT VENTRICLE: Normal chamber size. Borderline left ventricular hypertrophy. Global left ventricular systolic function is normal. Estimated left ventricular ejection fraction is 65-70%. LV EF: Normal left ventricular ejection fraction, (>55%). DIASTOLIC: Diastolic function is indeterminate. ATRIAL SEPTUM: Lipomatous hypertrophy of the interatrial septum is seen. LEFT ATRIUM: Mild dilatation. RIGHT ATRIUM: Mild dilatation. RIGHT VENTRICLE: Normal chamber size. Normal right ventricular systolic function. TRICUSPID VALVE: Normal mobility and thickness. No stenosis with mild to moderate regurgitation. Mild pulmonary hypertension. The RVSP measures 40 mmHg MITRAL VALVE: Normal mobility and thickness. No evidence of mitral valve stenosis. There is no mitral annular calcification. Mild mitral regurgitation. AORTIC VALVE: Normal trileaflet appearance. Mildly calcified aortic valve. Normal leaflet mobility. No evidence of aortic valve stenosis. No aortic regurgitation. AORTIC ROOT: Normal diameter and appearance. The aortic root measures 3.0 cm.The ascending aorta is normal in size measuring 2.6 cm. PULMONIC VALVE: Normal thickness and mobility. No stenosis. Trivial regurgitation. PERICARDIUM: No evidence of pericardial effusion. IVC: Moderate dilatation. The IVC measures 2.7 cm with no collapse. PLEURA: CONCLUSION: 1. Normal left ventricular size and systolic function. Estimated LVEF is 65 to 70%. 2. Normal right ventricular size and systolic function. 3. Mild biatrial dilatation. 4. Mild mitral regurgitation. 5. Mild to moderate tricuspid regurgitation. 6. Mildly elevated right-sided pressures. Adult Echocardiography Procedure Report Left Ventricle LVEDD (3.7 - 5.6 cm): 4.68 cm LVESD (2.2 - 4.0 cm): 2.74 cm LVIVS thickness (0.6 - 1.2 cm): 1.06 cm LVPW thickness (0.5 - 1.0 cm): 8.92 mm LVOT Max Gradient: 8 mm[Hg] Peak Velocity (LVOT): 144.00 cm/s Mean Velocity (LVOT): 81.20 cm/s LVOT Diameter 2.10 cm Left Ventricular Ejection Fraction: 65-70 % Left Atrium LA Volume Index (2D A2C): 00308 mm3 Left Atrium Systolic Dimension: 4.20 cm Mitral Valve MV E to A Ratio: 0.80 Mitral Valve A-Wave Peak Velocity: 116.00 cm/s Mitral Valve E-Wave Peak Velocity: 87.60 cm/s Right Ventricle Aorta AO Root Diam: 3.00 cm Aortic Valve AoV Area (Peak Sandro): 3.66 cm2 AoV Area (VTI): 3.42 cm2 Peak Velocity(Antegrade Flow): 136.00 cm/s Peak Gradient(Antegrade Flow): 7 mm[Hg] Mean Velocity(Antegrade Flow): 86.40 cm/s Mean Gradient(Antegrade Flow): 4 mm[Hg] Velocity Time Integral: 26.90 cm Tricuspid Valve Peak Velocity (Regurgitant Flow): 252.00 cm/s Pulmonic Valve Peak Velocity: 107.00 cm/s, 97.70 cm/s Peak Gradient: 4 mm[Hg] Right Atrium Dictated by: Gildardo Blandon M.D. on 10/22/2025 at 18:34 Approved by: Gildardo Blandon M.D. on 10/22/2025 at 18:39
--- NOTE | 2025-10-22 12:25 | PC.NURSE ---
Dr. Beasley into exam patient
[2025-10-22 12:45] LABS: Thyroid Stimulating Hormone 3.419 uIU/mL (0.358-3.740)
--- NOTE | 2025-10-22 13:52 | SWNOTE1 ---
SW had consult for transportation. Pt did come to hospital unkept and soiled. SW stopped in pt's room. Pt's daughter and grandson were in room. Nursing was in room as well. Respiratory therapy and physical therapy came in room as well. Pt was going to be placed on bipap. Pt was able to tell PT she her name and date. Pt lives at home with her grandson and her boyfriend. Pt was at [facility] in [place] some time this year. She has been back at home for severe months. Per the grandson pt was ambulating some at [facility], but has declined since being home and per the grandson she sits in a wheelchair. Pt wears briefs at home and then the grandson changes her. SW and therapy did ask about bathing and washing up. Initially pt's grandson and daughter did not answer. SW did not hear what the grandson told physical therapy in regards to bathing. Physical therapy did ask family about sleeping situation. Pt does sleep in her wheelchair, but there is a recliner chair at home as well. Pt does wear home oxygen. Pt's daughter was unsure of several questions and would look at her son, pt's hiwot, for answers. Per the family there is a nurse that comes in, they are unsure of company and how often. They are also unsure of when it was set up and who set it up. They think [facility] set up the oxygen and HH company. SW to reach out to [facility]. SW did ask family if they liked [facility], they stated no. At this time pt will be placed on Bipap and SW to stop back in tomorrow. Transportation was not addressed as the family stated pt is in her wheelchair all the time.
--- NOTE | 2025-10-22 14:14 | SWNOTE1 ---
Pt's grandson works 3rd shift and sleeps during the day and pt's boyfriend works during the day. SW did reach out to [facility] and they did set her up with home oxygen from [facility]. SW to call both.
--- NOTE | 2025-10-22 14:38 | SWNOTE1 ---
[facility] did let SW know they did have concerns about who was helping care for pt once she left the facility and her being left alone with her medical issues. SW let nurse know. SCOTT did reach out to [facility] and spoke to Elizabeth. Elizabeth voiced pt is current with [facility], nursing only. SCOTT called [facility] and spoke to Mona. Mona confirmed pt has 4 liters of home oxygen continuous and it was prescribed on 01/02/25. SCOTT updated the nurse. SCOTT to re-assess pt tomorrow.
--- NOTE | 2025-10-22 14:44 | SWNOTE1 ---
Per the pt's grandson, pt is normally alert and oriented.
--- NOTE | 2025-10-22 14:48 | SWNOTE1 ---
SCOTT faxed updates to [facility]. Updates included face sheet, ED note, and H&P. SCOTT did ask [facility] if the nurse was doing wound care, and if so could they fax over what the nurse has been doing. SW waiting to hear back.
--- NOTE | 2025-10-22 15:45 | SWNOTE1 ---
Carole from [facility] sent over wound care orders. SW provided to nurse and placed copy in chart.
[2025-10-22 15:54] LABS: Folate 16.70 ng/mL (8.60-58.90)
--- NOTE | 2025-10-22 17:06 | XR_ITS ---
The [address] [address] Patient Name: JULIAN MONTAÑO MRN: [id number] date: 1955 Sex: F Assigned Patient Location: MS Current Patient Location: MS Accession/Order Number: [id number] Exam Date: 10/22/2025 17:30 Report Date: 10/22/2025 18:23 At the request of: LIZ NERI MD Procedure: XR chest 1V PA CHEST: CLINICAL HISTORY: Hypoxia and hypercapnea COMPARISON: 12/09/2024 Unremarkable cardiomediastinal. Lungs clear. No effusion or pneumothorax. XR/XR chest 1V IMPRESSION: Negative acute airspace disease. Impression dictated by: Torsten Toledo M.D. 10/22/2025 6:23 PM Dictation Location: [place] [address] Electronically authenticated by: [id number] Y Date: 10/22/2025 18:23
[2025-10-22] MEDS: THIAMINE HCL 200 MG/2 ML VIAL 100 MG IVP (17:26)
[2025-10-22] MEDS: METHYLPREDNISOLONE SOD SUCC PF 125 MG/2 ML VIAL 60 MG IV (17:30)
[2025-10-22 17:47] LABS: Allen Test POSITIVE (POSITIVE); BIPAP Pressure 16/8; HCO3 ABG 37.0 mmol/L (22.0-26.0); O2 Mode BIPAP; Oxygen Saturation ABG 83.2 %; Puncture Site LR; Rate 14
[2025-10-22 17:49] LABS: ABG PCO2 59.6 mmHg (35.0-45.0)
[2025-10-22 17:50] LABS: PO2 ABG 47.1 mmHg (80.0-100.0)
[2025-10-22] MEDS: VANCOMYCIN HCL 1,000 MG in 0.9 % SODIUM CHLORIDE 250 ML 250 MG IV (18:00)
[2025-10-22 18:07] LABS: Cannabinoid Screen Urine NEGATIVE (NEGATIVE); Methamphetamines Screen Urine NEGATIVE (NEGATIVE); Tricyclic Antidepressant Urine NEGATIVE (NEGATIVE)
[2025-10-22] MEDS: IPRATROPIUM/ALBUTEROL SULFATE 3 ML AMPUL.NEB IH ×2 (18:14→20:35)
[2025-10-22 18:15] LABS: Ammonia 26 umol/L (11-32)
[2025-10-22 18:20] LABS: NT Pro B Type Natriuretic Pept 1586.0 pg/mL (<=900.0)
--- NOTE | 2025-10-22 18:21 | CT_ITS ---
The [address] [address] Patient Name: JULIAN MONTAÑO MRN: [id number] date: 1955 Sex: F Assigned Patient Location: MS Current Patient Location: Accession/Order Number: [id number] Exam Date: 10/22/2025 18:15 Report Date: 10/22/2025 18:52 At the request of: LIZ NERI MD Procedure: CT chest wo con CT CHEST WITHOUT IV CONTRAST: CLINICAL HISTORY: pneumonia? COMPARISON: Chest x-ray 10/22/2025 TECHNIQUE: Spiral images were obtained through the chest without IV contrast. This CT exam was performed using one or more following dose reduction techniques: Automated exposure control, adjustment of the mA and/or kV according to patient size, or use of iterative reconstruction technique. FINDINGS: Mediastinum:Minimal prominence of the heart size. No pericardial effusion. Minimal scattered coronary artery disease. No pathologically enlarged mediastinal or hilar adenopathy identified this noncontrast examination. Granulomatous calcified lymph node subcarinal region. Retroesophageal course of the right subclavian with suspected diverticulum Lungs:There are emphysematous changes. Minimal hypoventilatory changes with bibasilar atelectasis and or scarring. Suspect trace effusions. Otherwise no airspace otherwise suggest pneumonia identified. Abd:See CT abdomen pelvis report Soft tissues/Bones: Mild degenerative change. No suspicious osseous lesion. CT/CT chest wo con IMPRESSION: Emphysematous changes. Trace bibasilar atelectasis and or scarring no airspace consolidation suggest underlying pneumonia. Impression dictated by: Torsten Toledo M.D. 10/22/2025 6:52 PM Dictation Location: [place] [address] Electronically authenticated by: [id number] Y Date: 10/22/2025 18:52
--- NOTE | 2025-10-22 18:21 | CT_ITS ---
The [address] [address] Patient Name: JULIAN MONTAÑO MRN: [id number] date: 1955 Sex: F Assigned Patient Location: MS Current Patient Location: MS Accession/Order Number: [id number] Exam Date: 10/22/2025 18:15 Report Date: 10/22/2025 19:17 At the request of: LIZ NERI MD Procedure: CT abdomen pelvis wo con CT ABDOMEN AND PELVIS WITHOUT INTRAVENOUS CONTRAST: CLINICAL HISTORY: Abdomen tenderness COMPARISON: 04/08/2022 CT angiogram TECHNIQUE: Spiral images were obtained through the abdomen and pelvis without intravenous contrast. This CT exam was performed using one or more following dose reduction techniques: Automated exposure control, adjustment of the mA and/or kV according to patient size, or use of iterative reconstruction technique. FINDINGS: Lung Bases: [Minimal atelectasis and or scarring.] Organs:Degraded due to lack contrast. Liver, spleen, adrenals, kidneys, and pancreas unremarkable. Incidental heavily calcified structure left upper quadrant measuring 2.5 x 0.8 cm likely splenic artery aneurysm[ GI: Moderate stool burden. No bowel obstruction. Distal colonic diverticulosis. Appendix unremarkable.[ Pelvis:[Bladder collapsed around a Lopez catheter balloon. Gas within the bladder noted. Uterus unremarkable. No suspicious adnexal mass.] Peritoneum/Retroperitoneum:No free air or free fluid. Moderate severe plaque identified throughout the nonaneurysmal aorta.[ Abd wall/Bones:Dextrocurvature lumbar spine. Multilevel degenerative changes.[There are large lymph nodes identified both inguinal regions. 1.3 x 1.0 cm in the right and up to 1.3 cm size in left. This may be reactive. CT/CT abdomen pelvis wo con IMPRESSION: Evaluation degraded due to lack contrast. Moderate distal colonic diverticulosis. Gas within the bladder likely related to recent instrumentation. Bilateral inguinal lymph nodes possibly reactive. Incidental splenic artery aneurysm noted Impression dictated by: Torsten Toledo M.D. 10/22/2025 7:17 PM Dictation Location: [place] [address] Electronically authenticated by: [id number] Y Date: 10/22/2025 19:17
[2025-10-22 18:38] LABS: Lactate/Lactic Acid 0.7 mmol/L (0.4-2.0)
[2025-10-22] MEDS: PIPERACILLIN SODIUM/TAZOBACTAM 3.375 GM in 0.9 % SODIUM CHLORIDE 50 ML IV (19:38)
--- NOTE | 2025-10-22 20:50 | NUTR.NU ---
Diet consult completed with family; pt unable to take part at this time. She remains NPO status.
[2025-10-22] MEDS: HYDROCORTISONE SODIUM SUCC PF 100 MG/2 ML VIAL 50 MG IVP (21:54)
[2025-10-22] MEDS: 0.9 % SODIUM CHLORIDE 10 ML VIAL 5 ML IV (21:55)
[2025-10-22] MEDS: LEVOTHYROXINE SODIUM 100 MCG VIAL IV (21:55)
[2025-10-22] MEDS: HEPARIN SODIUM (PORCINE) 5,000 UNIT/ML VIAL 5000 UNIT SUBQ (21:57)
[2025-10-23 04:07] LABS: Vitamin B12 1105 pg/mL (232-1245)
[2025-10-24 04:50] LABS: A. calcoaceticus-baumannii Cpx NOT DETECTED (NOT DETECTE); Bacteroides fragilis NOT DETECTED (NOT DETECTE); Candida auris NOT DETECTED (NOT DETECTE); Candida glabrata NOT DETECTED (NOT DETECTE); Enterobacterales NOT DETECTED (NOT DETECTE); Enterococcus faecalis NOT DETECTED (NOT DETECTE); Enterococcus faecium NOT DETECTED (NOT DETECTE); Klebsiella aerogenes NOT DETECTED (NOT DETECTE); Klebsiella pneumoniae group NOT DETECTED (NOT DETECTE); Proteus spp. NOT DETECTED (NOT DETECTE); Salmonella spp. NOT DETECTED (NOT DETECTE); Serratia marcescens NOT DETECTED (NOT DETECTE); Staphylococcus epidermidis NOT DETECTED (NOT DETECTE); Staphylococcus lugdunensis NOT DETECTED (NOT DETECTE); Stenotrophomonas maltophilia NOT DETECTED (NOT DETECTE); Streptococcus pyogenes NOT DETECTED (NOT DETECTE); Streptococcus spp. NOT DETECTED (NOT DETECTE)
[2025-10-24 09:25] LABS: Source BLOOD
[2025-10-24 09:26] LABS: Staphylococcus spp. DETECTED (NOT DETECTE)
== END 2025-10-22 23:34 | disposition short-term general hospital (02) | DRG 71 ==
LOC: ER 10:36 → MS 11:31
PROVIDERS: Admitting Provider Student in an Organized Health Care Education/Training Program; Emergency Provider Emergency Medicine; PCP Nurse Practitioner; Visit Provider Student in an Organized Health Care Education/Training Program
DX: G93.41 Metabolic encephalopathy (principal); E87.0 Hyperosmolality and hypernatremia; J96.11 Chronic respiratory failure with hypoxia; L03.116 Cellulitis of left lower limb; L03.115 Cellulitis of right lower limb; Z99.81 Dependence on supplemental oxygen; F17.200 Nicotine dependence, unspecified, uncomplicated; Z87.01 Personal history of pneumonia (recurrent); J44.9 Chronic obstructive pulmonary disease, unspecified; R54 Age-related physical debility; E86.0 Dehydration; Z79.84 Long term (current) use of oral hypoglycemic drugs; E11.628 Type 2 diabetes mellitus with other skin complications
CPT/HCPCS: 36415; 36600; 51702; 70450; 71045; 71250; 74176; 80053; 80307; 81003; 82140; 82607; 82746; 82805; 83605; 83735; 83880; 84443; 84484; 85025; 85652; 86140; 87040; 87150; 93005; 93306; 93970; 94640; 94660; 94761; 96365; 99285; 99406; J0295; J0650; J1644; J1720; J2543; J2919; J3373; J3411